=== PATIENT | female | born 1955 | race Caucasian/White ===

== ENCOUNTER 2020-12-18 08:53 | Observation (INO) | payer MEDICARE, SELFPAY ==
[2020-12-18] VITALS (7 sets, daily range): BP systolic 128–188; BP diastolic 58–98; PULSE 73–97; RESP 14–20; TEMP 36.6–36.9; O2SAT 92–100; BMI 36.5; BMI 77.4
--- NOTE | 2020-12-18 09:26 | CT_ITS ---
STUDY: CT LUMBAR SPINE WITHOUT CONTRAST REASON FOR EXAM: Female, 65 years old. Lumbar radiculopathy, fall RADIATION DOSAGE (If Supplied By Facility): CTDIvol = ( 38.52 ) mGy, DLP = ( 1205.95 ) mGycm TECHNIQUE: The patient was scanned in a multi detector CT scanner. High resolution transaxial imaging was performed. Images were obtained from L1 to S1 vertebral level. Sagittal and coronal images were reconstructed. Individualized dose optimization techniques were used for this CT. COMPARISON: None FINDINGS: Normal lumbar lordosis. There is no substantial scoliosis. Normal vertebrae of the lumbar spine. L1-2: Marked degree of disc space narrowing. Anterior spondylosis. Facet joint osteoarthritis. Mild degree of diffuse posterior disc bulge. Bilateral neural foraminal stenosis with mild degree of central canal stenosis due to hypertrophy of the facet joints and ligamenta flava. L2-3: Mild degree of disc space narrowing. Facet joint osteoarthritis and hypertrophy worse on the right side with bilateral neural foraminal stenosis worse on the right side. Right sided central canal stenosis due to the hypertrophy of the facet joint. L3-4: Mild degree of diffuse disc bulge. Facet joint osteoarthritis and hypertrophy with a marked degree of bilateral neural foraminal stenosis. There is also a marked degree of central canal stenosis due to hypertrophy of the facet joints and ligamentum flavum. L4-5: Mild degree of disc space narrowing. Mild anterior listhesis of L4 on L5. Severe bilateral neural foraminal stenosis and central canal stenosis due to hypertrophy of the facet joints and ligamentum flavum. L5-S1: Marked degree of disc space narrowing. Hypertrophy of the facet joints with bilateral neural foraminal stenosis and central canal stenosis. Normal visualized paraspinous soft tissue structures. CT/Spine Lumbar without Contrast IMPRESSION: Multilevel degenerative changes, as described above. Multilevel bilateral neural foraminal and central spinal stenosis. Electronically Signed: Rickey Dumont MD at 11:32 EDT , Service support ,
[2020-12-18] MEDS: morphine 8 MG/ML Syringe IM (09:36)
--- NOTE | 2020-12-18 11:25 | ED.DCSUM_ITS ---
History of Present Illness Chief Complaint: Back Narrative: Patient presenting for evaluation secondary to back pain. Patient reports that around a month ago she suffered a mechanical fall. States that she fell on snow and ice, caught her self, and had an onset of generalized back pain. She reports that she actually had improvement of this back pain. Patient states that following that she started to reintroduce an exercise regimen where she was on treadmill. She reports that after that she had a development of low back pain that now radiates down her bilateral legs. She states that this is bad all of the time, but is specifically worse with ambulation. She denies any numbness or weakness associated with this. No bowel or bladder incontinence. No fevers chills night sweats or unintended weight loss. She has been taking [id number] analgesics for this, but has not had any improvement. Patient was placed on a Medrol pack and is on currently day 5 and has not had any improvement from this. No history of IV drug abuse. View of systems otherwise negative. Past Medical History - Allergies and Home Meds Allergies/Adverse Reactions: Allergies aspirin Allergy (Verified 12/18/20 08:59) Other Sulfa (Sulfonamide Antibiotics) Allergy (Verified 12/18/20 08:59) Other Primary Care Physician: Preet Farrar DO [Primary Care Provider] - Prior records reviewed: Yes Past Medical History: - - No significant past medical history Lives: With Family Smoking Status: Current every day smoker Alcohol: None Drugs: None Review of Systems All systems negative except as indicated - See HPI General: Denies: Chills, Fever, Sweats Eyes: Denies: Visual changes - bilaterally, Diplopia ENT: Denies: Rhinorrhea, Sore throat Cardiovascular: Denies: Chest pain, Palpitations Respiratory: Denies: Dyspnea, Cough, Dyspnea on exertion Gastrointestinal: Denies: Abdominal pain, Nausea, Vomiting, Diarrhea, Melena, Hematochezia Genitourinary: Denies: Dysuria, Hematuria, Frequency Musculoskeletal: Reports: Back pain Skin: Denies: Rash, Wounds Neurological: Denies: Headache, Weakness, Numbness Physical Exam Vital Signs/Narrative: Vital Signs Temp Pulse Resp BP Pulse Ox 12/18/20 08:54 97.8 F 80 16 188/98 H 98 Inital Vital Signs reviewed: Yes General: Well nourished, Well developed, - - Is a bland pain Head: Normocephalic, Atraumatic Eyes: Perrl, EOMI ENT: Moist mucous membranes, No rhinorrhea Neck: Supple, Nontender Cardiovascular: Regular rate, Regular rhythm, No murmurs Respiratory: No distress, CTA bilaterally, Chest nontender Abdomen: Soft, Nontender, Nondistended, Normal bowel sounds. Negative for: Pulsatile mass Back: Normal Inspection, Positive SLR - Right, Positive SLR - Left, - - Patient has both midline lumbar tenderness as well as paraspinal lumbar tenderness no evidence of step-offs Extremeties: Nontender, No edema Skin: Normal color, No rash Neuro: Alert, Oriented, Normal Strength, Normal Sensation, Normal DTR, - - 5-5 strength at the hip knee ankle and foot with normal sensation over all dermatomes. 1+ patellar and Achilles reflexes negative clonus. Psychological: Normal affect Diagnostic/Tx/Re-eval Clinical Impression(s) from Imaging Studies Lumbar Spine CT 12/18/20 09:26 IMPRESSION: Multilevel degenerative changes, as described above. Multilevel bilateral neural foraminal and central spinal stenosis. Electronically Signed: Rickey Dumont MD at 11:32 EDT , Service support , - Medical Decision Making Patient presented for evaluation secondary to back pain. Patient was given IM medications initially. CT imaging shows the patient to have multilevel degenerative changes with foraminal narrowing. Patient has radicular symptoms, but does not have symptoms that are indicative of spinal cord impingement or cauda equina. After multiple doses of IM narcotic pain medication the patient was still unable to ambulate and was only able to get out of bed with 2 nurses assisting her. I believe that she requires admission for further pain control. Patient will be admitted under the hospitalist. ED Disposition - Plan for ED Patient: Disposition: Acute Care Hospital [facility] Diagnosis: Lumbar radiculopathy, Intractable back pain, Ambulatory dysfunction
[2020-12-18] MEDS: HYDROmorphone 0.5 MG/0.5 ML SYRINGE IV (12:24)
--- NOTE | 2020-12-18 13:16 | HP.PCM_ITS ---
History of Present Illness Date of Admission: 12/18/20 Chief Complaint: intractable back pain The patient is a 65 year old F with a PMH as outlined who was admitted via [facility] ED on 12/19/2019 with a complaint of back pain. Patient states she fell about a month ago. She has had back pain since then but it has acutely worsened. It is worsened to the point where she could not even weight-bear. Initially did improve and she was able to start working out on her treadmill. However after that, she started having even worse back pain which is worsened with ambulation. Pain radiates down to both legs. She has been taking [id number] analgesics but this has not been working. She was also prescribed a Medrol Dosepak but this was also not working. She therefore decided to come into the ED. She denies any urinary or fecal incontinence. Review of stems otherwise negative. In the ED, vitals were essentially stable. CT of the lumbar spine showed multilevel degenerative changes with multilevel bilateral neural foraminal and central spinal stenosis. She has been admitted to manage for intractable back pain due to spinal stenosis. [] Past Medical History Allergies aspirin Allergy (Verified 12/18/20 08:59) Other Sulfa (Sulfonamide Antibiotics) Allergy (Verified 12/18/20 08:59) Other Home Medications: Ambulatory Orders Medication Instructions Recorded Acetaminophen [Tylenol Extra 1,000 mg PO Q4H PRN PRN 12/18/20 Strength] Ergocalciferol (Vitamin D2) 50,000 unit PO MOFR 12/18/20 [Vitamin D2] Glimepiride 2 mg PO BIDAC 12/18/20 Metoprolol Succinate 25 mg PO DAILY 12/18/20 Thyroid,Pork [Consumer Loan Officer Thyroid 120] 240 mg PO WEFR 12/18/20 Thyroid,Pork [Consumer Loan Officer Thyroid] 120 tablet PO SUMOTUTHSA 12/18/20 Lives: With Family Smoking Status: Current every day smoker Alcohol: None Drugs: None Review of Systems Constitutional: Denies: Chills, Fever, Weight Change Eyes: Denies: Blurred vision HEENT: Denies: Head Aches, Sinus Congestion, Sinus Drainage Cardiovascular: Denies: Chest Pain, Palpitations Respiratory: Denies: Cough, Shortness of breath at rest, Sputum production Gastrointestinal: Denies: Abdominal Pain, Nausea, Vomiting Genitourinary: Denies: Dysuria Musculoskeletal: Reports: - - back pain. Denies: Joint Pain, Joint Tenderness Skin: Denies: Rash, Wounds Neurological: Denies: Numbness, Tingling, Focal weakness Psychiatric: Denies: Anxiety, Depression, Homicidal Ideations, Suicidal Ideation s Hematologic/ Lymphatic: Denies: Easy Bruising, Easy Bleeding VTE Information - Inpt Only VTE Present on Admission: No VTE Pharm Prophylaxis ordered?: Yes Patient Problems: Active and Suspected Problems Lumbar radiculopathy (Acute) Intractable back pain (Acute) Ambulatory dysfunction (Acute) - Physical Exam Vitals/I&O's: Vital Signs Temp Pulse Resp BP Pulse Ox 97.8 F 77 14 143/66 H 96 12/18/20 08:54 12/18/20 12:00 12/18/20 12:00 12/18/20 12:00 12/18/20 12:00 Oxygen Delivery Method Room Air Weight: 187 lb 2.759 oz Body Mass Index (BMI) 36.5 General: Alert, Oriented x3, Cooperative, No apparent distress HEENT: Atraumatic, PERRLA, EOMI, Normocephalic Oral: Dry Mucosa Neck: Supple, No JVD, Negative Carotid Bruits Lungs: Clear to auscultation, Normal air movement, No rhonchi, No wheeze Cardiovascular: Regular rate, Regular Rhythm, Normal S1, Normal S2, No murmurs Abdomen: Bowel Sounds Present, Soft, Non Tender, Non-Distended, No Hepato- splenomegaly Extremities: No clubbing, No cyanosis, No edema, Capillary Refill Less than 3 Seconds Skin: No rashes, No breakdown Musculoskeletal: - - tenderness on palpation of lower back; paraspinal muscle tightness and tenderness Lymphatic: No Cervical, Supraclavicular, or Inguinal Adenopathy Neurological: Cranial nerves II-XII grossly intact, Neuro grossly intact, Motor Exam 5/5 strength throughout Psych/Mental Status: Normal Affect, Appropriate, Alert and oriented to time, place, person, mood and affect Assessment/Plan All Active Problems Lumbar radiculopathy (Acute) Intractable back pain (Acute) Ambulatory dysfunction (Acute) 65 y/o admitted with a complaint of intractable back pain #Intractable back pain due to spinal stenosis * Admit to [facility]\ * PT OT consult. Fall precautions * Will get MRI of the lumbar spine. * WIll consider spine surgery depending on the results of the MRI lumbar spine * #Hypothyroidism: On Synthroid #2 diabetes mellitus: On glimepiride. Insulin sliding scale. Checks AC at bedtime. #Hypertension: On metoprolol #Nicotine dependence: We will give nicotine patch DVT prophylaxis: Lovenox OBSV E&M: 99407 Initial observation care L3
--- NOTE | 2020-12-18 13:21 | NURSING ---
MED SURG [facility] INTRACTABLE BACK PAIN
[2020-12-18] MEDS: 0.9% Normal Saline 1,000 ML 125 ML IV (17:38)
[2020-12-18] MEDS: Morphine 4 MG/ML Syringe IV ×2 (17:43→22:21)
[2020-12-18 18:16] LABS: Absolute Neutrophil Count 8.1 X10^3/uL (2.0-7.7); Basophil# 0.05 X10^3/uL; Basophil% 0.4 % (0-1); Eosinophil# 0.15 X10^3/uL; Eosinophils% 1.2 % (0-5); Lymphocyte % 25.5 % (19-41); Mean Corp Hgb Conc 33.3 g/dL (32-36); Mean Corpuscular Hgb 30.6 pg (27.0-32.0); Mean Corpuscular Volume 91.8 fL (81-99); Mean Platelet Vol. 9.5 fl (6.2-12.0); Monocyte# 0.98 X10^3/uL; Monocyte% 7.8 % (0-10); NRBC Flagged by Analyzer 0 % (0-5); Neutrophil # 8.09 X10^3/uL (2.7-7.7); Neutrophil % 64.5 % (47-70); Platelet Count 336 K/mm3 (150-450); RBC Distribution Width CV 12.8 % (11.6-14.6); RBC Distribution Width SD 42.5 fl (35.1-43.9); Red Blood Count 5.23 M/mm3 (4.2-5.4); White Blood Count 12.6 K/mm3 (4.4-11.0)
[2020-12-18 18:30] LABS: Anion Gap 6 (5-15); BUN 15 mg/dL (7-18); BUN/Creat Ratio 24.2 RATIO (10-20); Calcium,Total 9.5 mg/dL (8.5-10.1); Chloride 100 mmol/L (98-107); Creatinine, Serum 0.62 mg/dL (0.55-1.02); EST Glomerular Filtration Rate 102 mL/min (>60); Est Glom Filt Rate - Afr Amer 124 mL/min (>60); Estimated Creatinine Clearance 64.98 ml/min; Glucose 194 mg/dL (74-106); Potassium 3.7 mmol/L (3.5-5.1); Sodium Level 135 mmol/L (136-145)
[2020-12-18] MEDS: Acetaminophen 500 MG Tablet 1000 MG PO (20:26)
[2020-12-18] MEDS: oxyCODONE 5 MG Tablet PO (20:26)
[2020-12-18 22:36] LABS: Bedside Glucose 199 mg/dL (70-110)
[2020-12-19] MEDS: 0.9% Normal Saline 1,000 ML 125 ML IV (01:46)
[2020-12-19 02:23] VITALS: BP 157/78; PULSE 75; RESP 17; TEMP 36.9; O2SAT 95
[2020-12-19] MEDS: Morphine 4 MG/ML Syringe IV ×5 (02:25→21:29)
[2020-12-19 05:31] LABS: Absolute Lymphocyte Count 1.94 X10^3/uL (0.83-4.51); Basophil# 0.05 X10^3/uL; Basophil% 0.6 % (0-1); Eosinophil# 0.31 X10^3/uL; Eosinophils% 3.9 % (0-5); Hematocrit 46.2 % (37-47); Hemoglobin 15.1 g/dL (12.0-15.0); Lymphocyte # 1.94 X10^3/ul (4.0); Lymphocyte % 24.3 % (19-41); Mean Corp Hgb Conc 32.7 g/dL (32-36); Mean Corpuscular Hgb 30.6 pg (27.0-32.0); Mean Corpuscular Volume 93.7 fL (81-99); Mean Platelet Vol. 9.5 fl (6.2-12.0); Monocyte# 0.59 X10^3/uL; Monocyte% 7.4 % (0-10); NRBC Flagged by Analyzer 0 % (0-5); Neutrophil # 5.02 X10^3/uL (2.7-7.7); Neutrophil % 62.9 % (47-70); Platelet Count 325 K/mm3 (150-450); RBC Distribution Width CV 12.8 % (11.6-14.6); RBC Distribution Width SD 43.9 fl (35.1-43.9); Red Blood Count 4.93 M/mm3 (4.2-5.4)
[2020-12-19 05:51] LABS: Anion Gap 5 (5-15); BUN 14 mg/dL (7-18); BUN/Creat Ratio 28.7 RATIO (10-20); Calcium,Total 8.7 mg/dL (8.5-10.1); Chloride 102 mmol/L (98-107); Creatinine, Serum 0.49 mg/dL (0.55-1.02); EST Glomerular Filtration Rate 135 mL/min (>60); Est Glom Filt Rate - Afr Amer 164 mL/min (>60); Estimated Creatinine Clearance 82.22 ml/min; Glucose 171 mg/dL (74-106); Potassium 3.8 mmol/L (3.5-5.1); Sodium Level 136 mmol/L (136-145)
[2020-12-19] MEDS: Thyroid 60 MG Tablet 240 MG PO (06:21)
[2020-12-19 06:41] LABS: Bedside Glucose 177 mg/dL (70-110)
[2020-12-19] MEDS: Acetaminophen 500 MG Tablet 1000 MG PO ×2 (07:16→19:55)
[2020-12-19] MEDS: oxyCODONE 5 MG Tablet PO ×2 (07:16→19:55)
[2020-12-19 08:16] VITALS: BP 165/99; PULSE 66; RESP 18; TEMP 36.7; O2SAT 92
[2020-12-19 08:20] VITALS: PULSE 76
[2020-12-19] MEDS: 0.9% Saline Lock 10 ML Syringe IV ×6 (09:26→23:36)
[2020-12-19 09:28] VITALS: PULSE 80
[2020-12-19] MEDS: Metoprolol(XL)Succ 25 MG Tablet PO (09:28)
[2020-12-19] MEDS: Enoxaparin 40 MG/0.4 ML Syringe SC (09:31)
--- NOTE | 2020-12-19 10:51 | PCM.PN.HOSP ---
Patient Problems: Active and Suspected Problems Lumbar radiculopathy (Acute) Intractable back pain (Acute) Ambulatory dysfunction (Acute) Subjective: Patient seen and examined. She still complains of severe back pain with spasms. She doesnt think she will be able to do the lumbar spine MRI due to pain. Review of systems otherwise negative. Vitals/I&O's: Vital Signs Temp Pulse Resp BP Pulse Ox 98.0 F 80 18 165/99 H 92 12/19/20 08:16 12/19/20 09:28 12/19/20 08:16 12/19/20 08:16 12/19/20 08:16 Oxygen Delivery Method Room Air Weight: 396 lb 6.258 oz Body Mass Index (BMI) 77.4 Intake and Output for Last 24 Hours 12/17/20 12/18/20 12/19/20 23:59 23:59 23:59 Intake Total 100 / 100 2612.5 / 2612.5 Output Total 450 / 450 Balance 100 / 100 2162.5 / 2162.5 General: Alert, Oriented x3, Cooperative, No apparent distress HEENT: Atraumatic, PERRLA, EOMI, Normocephalic Oral: Dry Mucosa Neck: Supple, No JVD, Negative Carotid Bruits Lungs: Clear to auscultation, Normal air movement, No rhonchi, No wheeze Cardiovascular: Regular rate, Regular Rhythm, Normal S1, Normal S2, No murmurs Abdomen: Bowel Sounds Present, Soft, Non Tender, Non-Distended, No Hepato-splenomegaly Extremities: No clubbing, No cyanosis, No edema, Capillary Refill Less than 3 Seconds Skin: No rashes, No breakdown Musculoskeletal: - - tenderness on palpation of lower back; paraspinal muscle tightness and tenderness Lymphatic: No Cervical, Supraclavicular, or Inguinal Adenopathy Neurological: Cranial nerves II-XII grossly intact, Neuro grossly intact, Motor Exam 5/5 strength throughout Psych/Mental Status: Normal Affect, Appropriate, Alert and oriented to time, place, person, mood and affect Laboratory Results 12/18/20 17:38: WBC 12.6 H, RBC 5.23, Hgb 16.0 H, Hct 48.0 H, MCV 91.8, MCH 30.6, MCHC 33.3, RDW Std Deviation 42.5, RDW Coeff of Neida 12.8, Plt Count 336, MPV 9.5, Immature Gran % (Auto) 0.600, Neut % (Auto) 64.5, Lymph % (Auto) 25.5, [place] % (Auto) 7.8, Eos % (Auto) 1.2, Baso % (Auto) 0.4, Absolute Neuts (auto) 8.1 H, Absolute Lymphs (auto) 3.20, Nucleated RBC % 0 12/18/20 17:38: Sodium 135 L, Potassium 3.7, Chloride 100, Carbon Dioxide 29.0, Anion Gap 6, BUN 15, Creatinine 0.62, Estim Creat Clear Calc 64.98, Est GFR (MDRD) Af Amer 124, Est GFR (MDRD) Non-Af 102, BUN/Creatinine Ratio 24.2 H, Glucose 194 H, Calcium 9.5 12/18/20 22:25: POC Glucose 199 H 12/19/20 05:06: WBC 8.0, RBC 4.93, Hgb 15.1 H, Hct 46.2, MCV 93.7, MCH 30.6, MCHC 32.7, RDW Std Deviation 43.9, RDW Coeff of [place]ida 12.8, Plt Count 325, MPV 9.5, Immature Gran % (Auto) 0.900, Neut % (Auto) 62.9, Lymph % (Auto) 24.3, [place] % (Auto) 7.4, Eos % (Auto) 3.9, Baso % (Auto) 0.6, Absolute Neuts (auto) 5.0, Absolute Lymphs (auto) 1.94, Nucleated RBC % 0 12/19/20 05:06: Sodium 136, Potassium 3.8, Chloride 102, Carbon Dioxide 29.0, Anion Gap 5, BUN 14, Creatinine 0.49 L, Estim Creat Clear Calc 82.22, Est GFR (MDRD) Af Amer 164, Est GFR (MDRD) Non-Af 135, BUN/Creatinine Ratio 28.7 H, Glucose 171 H, Calcium 8.7 12/19/20 06:11: POC Glucose 177 H Current Medications Acetaminophen (Acetaminophen 500 Mg Tablet) 1,000 mg PO Q4H PRN PRN PRN Reason: Pain 1-10 or Fever Last Admin: 12/19/20 07:16 Dose: 1,000 mg Documented by: Dextrose (Dextrose 50%-Water 25 Gm/50 Ml Disp.Syrin) 0 gm IV X1 PRN; Protocol PRN Reason: Hypoglycemia Enoxaparin Sodium (Enoxaparin 40 Mg/0.4 Ml Syringe) 40 mg SC DAILY [facility] Last Admin: 12/19/20 09:31 Dose: 40 mg Documented by: Ergocalciferol (Ergocalciferol 50,000 Unit Capsule) 50,000 unit PO MOFR [facility] Glimepiride (Glimepiride 2 Mg Tablet) 2 mg PO DAILY@1700 SUSANA Glucagon (Glucagon 1 Mg/Ml Syringe) 1 mg IM .X1 PRN PRN Reason: Hypoglycemia Insulin Human Lispro (Insulin Lispro 100 Unit/Ml Insuln.Pen) 0 unit SC ACHS [facility]; Protocol Last Admin: 12/19/20 06:18 Dose: Not Given Documented by: Metoprolol Succinate (Metoprolol(Xl)Succ 25 Mg Tablet) 25 mg PO DAILY [facility] Last Admin: 12/19/20 09:28 Dose: 25 mg Documented by: Morphine Sulfate (Morphine 4 Mg/Ml Syringe) 4 mg IV Q3H PRN PRN PRN Reason: Pain Score 6-10 Last Admin: 12/19/20 06:07 Dose: 4 mg Documented by: Ondansetron HCl (Ondansetron 4 Mg/2 Ml Vial) 4 mg IV Q8H PRN PRN PRN Reason: NAUSEA/VOMITING Oxycodone HCl (Oxycodone 5 Mg Tablet) 5 mg PO Q4H PRN PRN PRN Reason: Pain Score 4-5 Last Admin: 12/19/20 07:16 Dose: 5 mg Documented by: Sodium Chloride (0.9% Saline Lock 10 Ml Syringe) 10 - 40 ml IV UD PRN PRN Reason: SALINE FLUSH Last Admin: 12/19/20 09:26 Dose: 10 ml Documented by: Thyroid (Thyroid 60 Mg Tablet) 120 mg PO SUMOTUTHSA [facility] Thyroid (Thyroid 60 Mg Tablet) 240 mg PO WEFR [facility] Last Admin: 12/19/20 06:21 Dose: 240 mg Documented by: STROKE Vital Signs/Narrative: Vital Signs Temp Pulse Resp BP Pulse Ox 12/19/20 09:28 80 12/19/20 08:20 76 12/19/20 08:16 98.0 F 66 18 165/99 H 92 Medical Necessity - Tobacco Use Smoking Status: Current every day smoker Tobacco Use: Cigarettes Assessment/Plan All Active Problems Lumbar radiculopathy (Acute) Intractable back pain (Acute) Ambulatory dysfunction (Acute) 65 y/o admitted with a complaint of intractable back pain #Intractable back pain due to spinal stenosis still complains of severe back pain on tylenol, oxycodone and morphine for pain will add on flexeril for muscle spasms patient doesnt think she can do MRI of the lumbar spine due to severe pain. consult spine surgery PT/OT on board fall precautions. #Hypothyroidism: On Synthroid #Type 2 diabetes mellitus: On glimepiride. Insulin sliding scale. Checks AC at bedtime. #Hypertension: On metoprolol #Nicotine dependence: We will give nicotine patch DVT prophylaxis: Lovenox OBSV E&M: 71672 Subsequent observation care L2
[2020-12-19] MEDS: Ondansetron 4 MG/2 ML Vial IV (11:03)
[2020-12-19 11:20] LABS: Bedside Glucose 221 mg/dL (70-110)
[2020-12-19] MEDS: cycloBENZAPRine HCl 10 MG Tablet PO ×3 (12:15→21:32)
[2020-12-19] MEDS: dexAMETHasone 4 MG/ML Vial 8 MG IV (12:17)
--- NOTE | 2020-12-19 12:59 | CASEMGMT ---
OLVIN CHONG in to discuss SOTOMAYOR form with pt. RN CM explained SOTOMAYOR form, pt voiced understanding. Pt signed form and filed in chart. Pt provided with copy of signed form. Pt had no further questions or concerns at this time.
[2020-12-19 14:11] VITALS: BP 142/66; PULSE 64; RESP 16; TEMP 36.8; O2SAT 93
[2020-12-19 16:55] LABS: Bedside Glucose 316 mg/dL (70-110)
[2020-12-19] MEDS: Glimepiride 2 MG Tablet PO (17:32)
[2020-12-19] MEDS: dexAMETHasone 4 MG/ML Vial 6 MG IV (17:33)
[2020-12-19] MEDS: Insulin Lispro 100 UNIT/ML INSULN.PEN SC (21:42)
[2020-12-19 21:45] VITALS: BP 176/78; PULSE 66; RESP 18; TEMP 37; O2SAT 100
[2020-12-19 22:15] LABS: Bedside Glucose 322 mg/dL (70-110)
[2020-12-19] MEDS: dexAMETHasone 4 MG/ML Vial IV (23:37)
[2020-12-20] VITALS (9 sets, daily range): BP systolic 115–194; BP diastolic 42–95; PULSE 61–83; RESP 10–18; TEMP 36.5–37.1; O2SAT 89–97
[2020-12-20] MEDS: Acetaminophen 500 MG Tablet 1000 MG PO ×2 (04:19→08:24)
[2020-12-20] MEDS: oxyCODONE 5 MG Tablet PO ×2 (04:20→08:23)
[2020-12-20] MEDS: cycloBENZAPRine HCl 10 MG Tablet PO ×3 (05:35→21:09)
--- NOTE | 2020-12-20 05:55 | MRI_ITS ---
We are attempting to reach an attending provider to discuss findings. An addendum with communication details will be sent when the communication is complete. STUDY: MRI LUMBAR SPINE WITHOUT CONTRAST REASON FOR EXAM: Female, 65 years old. back pain TECHNIQUE: Standardized fat and water weighted pulse sequences were obtained in the sagittal and axial planes. COMPARISON: CT 12/18/2020 FINDINGS: T12-L1: Mild bilobed disc protrusion produces mild spinal stenosis but no neural foraminal stenosis. Normal lumbar lordosis. Mild levoscoliosis centered at L2. Normal conus medullaris that terminates at the L1. L1-2: Mild bilateral facet hypertrophy and ligament flavum hypertrophy. Mild broad disc protrusion with a superimposed large central disc extrusion produces severe spinal stenosis with effacement of multiple nerve roots and no neural foraminal stenosis. L2-3: Normal endplates. Normal disc height, hydration and morphology. Normal bilateral facet joints. Normal central canal and bilateral lateral recesses. Normal bilateral intervertebral neural foramina. L3-4: Mild bilateral facet hypertrophy and moderate ligament flavum hypertrophy. Mild bilobed disc protrusion produces moderate spinal stenosis with moderate bilateral lateral recess stenosis with abutment of the L4 nerve roots bilaterally and mild bilateral neural foraminal stenosis. L4-5: Moderate bilateral facet hypertrophy and ligament flavum hypertrophy. Moderate broad disc protrusion produces moderate spinal stenosis with moderate bilateral lateral recess stenosis with abutment of the L5 nerve roots bilaterally and moderate bilateral neural foraminal stenosis with abutment of the exiting L4 nerve roots bilaterally to L5-S1: Moderate bilateral facet hypertrophy and ligament flavum hypertrophy. Mild broad disc protrusion produces mild spinal stenosis and mild bilateral neural foraminal stenosis. Normal visualized sacral ala. Normal visualized paraspinous soft tissue structures. MRI/Spine Lumbar (Routine) IMPRESSION: Multilevel degenerative changes, as described above. Large central disc extrusion at L1/L2 produces severe spinal stenosis with effacement of virtually all of the lumbar spine nerve roots. Electronically Signed: Hung Das MD at 16:02 EDT Tel , Service support ,
[2020-12-20 06:07] LABS: Absolute Lymphocyte Count 0.98 X10^3/uL (0.83-4.51); Absolute Neutrophil Count 10.2 X10^3/uL (2.0-7.7); Basophil# 0.01 X10^3/uL; Basophil% 0.1 % (0-1); Hematocrit 45.4 % (37-47); Hemoglobin 15.9 g/dL (12.0-15.0); Lymphocyte # 0.98 X10^3/ul (4.0); Lymphocyte % 8.5 % (19-41); Mean Corpuscular Hgb 31.3 pg (27.0-32.0); Mean Corpuscular Volume 89.4 fL (81-99); Mean Platelet Vol. 9.3 fl (6.2-12.0); Monocyte# 0.18 X10^3/uL; Monocyte% 1.6 % (0-10); NRBC Flagged by Analyzer 0 % (0-5); Neutrophil # 10.23 X10^3/uL (2.7-7.7); Neutrophil % 89.2 % (47-70); Platelet Count 288 K/mm3 (150-450); RBC Distribution Width CV 12.6 % (11.6-14.6); RBC Distribution Width SD 40.7 fl (35.1-43.9); Red Blood Count 5.08 M/mm3 (4.2-5.4); White Blood Count 11.5 K/mm3 (4.4-11.0)
[2020-12-20] MEDS: 0.9% Saline Lock 10 ML Syringe IV ×4 (06:24→23:34)
[2020-12-20] MEDS: Morphine 4 MG/ML Syringe IV (06:24)
[2020-12-20] MEDS: dexAMETHasone 4 MG/ML Vial 2 MG IV (06:24)
[2020-12-20] MEDS: hydrALAZINE 20 MG/ML Vial 10 MG IV (06:29)
[2020-12-20] MEDS: Thyroid 60 MG Tablet 120 MG PO ×2 (06:35→17:05)
[2020-12-20] MEDS: Insulin Lispro 100 UNIT/ML INSULN.PEN SC ×4 (06:35→21:12)
[2020-12-20 06:37] LABS: Anion Gap 3 (5-15); BUN 13 mg/dL (7-18); BUN/Creat Ratio 22.7 RATIO (10-20); Calcium,Total 9.6 mg/dL (8.5-10.1); Chloride 99 mmol/L (98-107); Creatinine, Serum 0.57 mg/dL (0.55-1.02); EST Glomerular Filtration Rate 113 mL/min (>60); Est Glom Filt Rate - Afr Amer 136 mL/min (>60); Estimated Creatinine Clearance 70.68 ml/min; Glucose 269 mg/dL (74-106); Potassium 3.9 mmol/L (3.5-5.1); Sodium Level 130 mmol/L (136-145)
[2020-12-20 07:26] LABS: Bedside Glucose 235 mg/dL (70-110)
[2020-12-20] MEDS: Enoxaparin 40 MG/0.4 ML Syringe SC (11:41)
[2020-12-20] MEDS: Metoprolol(XL)Succ 25 MG Tablet PO (11:41)
[2020-12-20 12:50] LABS: Bedside Glucose 308 mg/dL (70-110)
--- NOTE | 2020-12-20 13:59 | PCM.PN.HOSP ---
Patient Problems: Active and Suspected Problems Lumbar radiculopathy (Acute) Intractable back pain (Acute) Ambulatory dysfunction (Acute) Subjective: Patient seen and examined this morning. Patient was very angry this morning because she she said she was in a lot of pain and didnt think anything was being done about it. She didnt think she would be able to lay flat for the MRI. She complained of weakness in her lower extremities. Patient was very angry and used several swear words towards staff and physician, because she felt nobody was listening to her. She wanted to be put under general anesthesia for the MRI. I explained to her that we couldnt do that, as we would need to have an anesthesiologist present and a ventilator available if she was going to be fully anesthetised for the MRI. Patient demanded that we find out from anesthesia why we could not get an anesthesiologist for an hour and a half to come to the MRI suit and bring a ventilator to fully sedate her for the MRI. Again, I did my best to explain to the patient that this was simply not possible as in a facility, we could not fully anesthetize the patient for MRI. Patient again asked why we do not have a standing MRI like [facility]. I offered to transfer patient to a nice outside facility where she could have the resources available so that she could be fully anesthetized for MRI. Patient refused transfer and says she did not want to go to any other hospital. I offered to give patient either Dilaudid or fentanyl which was stronger than morphine to help with pain during the procedure. Patient refused to have Dilaudid and also refused fentanyl because she says she had read about how bad things could happen to patient's who took fentanyl. I explained to patient that spine surgeon has stressed the importance of the MRI in quantifying the degree of stenosis to help him best plan any intervention if needed. Patient yelled that this was about what I want, and what I need, not what the medical staff wanted or needed or prescribed for her. Patient kept complaining that nobody was listening to her but even as I tried to reassure her and explained the plan of care, patient kept interrupting and talking all over me and would not listen. I explained to patient that if she was not willing to listen to the medical team, it would be very difficult to come up with a plan of care that she would agree to. I explained that I did empathize with her and felt compassion for the pain that she was in, and was here to help her. Patient finally agreed to attempt to have the MRI, only if I would give her a higher dose of her morphine, and also ativan. I agreed to this. I was subsequently informed by her nurse that she said she preferred dilaudid instead of morphine. Patient to be given IV dilaudid 2mg x 1 and IV ativan 1 mg x1 just prior to MRI. Vitals/I&O's: Vital Signs Temp Pulse Resp BP Pulse Ox 98.2 F 77 18 155/71 H 95 12/20/20 08:06 12/20/20 11:41 12/20/20 08:06 12/20/20 11:41 12/20/20 08:06 Oxygen Delivery Method Room Air Weight: 396 lb 6.258 oz Body Mass Index (BMI) 77.4 Intake and Output for Last 24 Hours 12/18/20 12/19/20 12/20/20 23:59 23:59 23:59 Intake Total 100 / 100 3152.5 / 3652.5 850 / 850 Output Total 1750 / 2400 1050 / 1050 Balance 100 / 100 1402.5 / 1252.5 -200 / -200 General: Alert, Non-Cooperative, - - very angry HEENT: Atraumatic, PERRLA, EOMI, Normocephalic Oral: Dry Mucosa Neck: Supple, No JVD, Negative Carotid Bruits Lungs: Clear to auscultation, Normal air movement, No rhonchi, No wheeze Cardiovascular: Regular rate, Regular Rhythm, Normal S1, Normal S2, No murmurs Abdomen: Bowel Sounds Present, Soft, Non Tender Extremities: No clubbing, No cyanosis, No edema, Capillary Refill Less than 3 Seconds Skin: No rashes, No breakdown Musculoskeletal: - - tenderness on palpation of lower back, with spasms Lymphatic: No Cervical, Supraclavicular, or Inguinal Adenopathy Neurological: Cranial nerves II-XII grossly intact, Motor Exam 5/5 strength throughout Psych/Mental Status: Normal Affect, Appropriate, Alert and oriented to time, place, person, mood and affect Laboratory Results 12/19/20 16:42: POC Glucose 316 H 12/19/20 21:36: POC Glucose 322 H 12/20/20 05:50: WBC 11.5 H, RBC 5.08, Hgb 15.9 H, Hct 45.4, MCV 89.4, MCH 31.3, MCHC 35.0 D, RDW Std Deviation 40.7, RDW Coeff of Neida 12.6, Plt Count 288, MPV 9.3, Immature Gran % (Auto) 0.600, Neut % (Auto) 89.2 H, Lymph % (Auto) 8.5 L, [place] % (Auto) 1.6, Eos % (Auto) 0.0, Baso % (Auto) 0.1, Absolute Neuts (auto) 10.2 H, Absolute Lymphs (auto) 0.98, Nucleated RBC % 0 12/20/20 05:50: Sodium 130 L, Potassium 3.9, Chloride 99, Carbon Dioxide 28.0, Anion Gap 3 L, BUN 13, Creatinine 0.57, Estim Creat Clear Calc 70.68, Est GFR (MDRD) Af Amer 136, Est GFR (MDRD) Non-Af 113, BUN/Creatinine Ratio 22.7 H, Glucose 269 H, Calcium 9.6 12/20/20 06:34: POC Glucose 235 H 12/20/20 12:05: POC Glucose 308 H Diagnostic Data Lumbar Spine CT 12/18/20 09:26 IMPRESSION: Multilevel degenerative changes, as described above. Multilevel bilateral neural foraminal and central spinal stenosis. Electronically Signed: Rickey Dumont MD at 11:32 EDT , Service support , Current Medications Acetaminophen (Acetaminophen 500 Mg Tablet) 1,000 mg PO Q4H PRN PRN PRN Reason: Pain 1-10 or Fever Last Admin: 12/20/20 08:24 Dose: 1,000 mg Documented by: Cyclobenzaprine HCl (Cyclobenzaprine Hcl 10 Mg Tablet) 10 mg PO TID [facility] Last Admin: 12/20/20 13:54 Dose: 10 mg Documented by: Dextrose (Dextrose 50%-Water 25 Gm/50 Ml Disp.Syrin) 0 gm IV X1 PRN; Protocol PRN Reason: Hypoglycemia Enoxaparin Sodium (Enoxaparin 40 Mg/0.4 Ml Syringe) 40 mg SC DAILY [facility] Last Admin: 12/20/20 11:41 Dose: 40 mg Documented by: Ergocalciferol (Ergocalciferol 50,000 Unit Capsule) 50,000 unit PO [facility] Glimepiride (Glimepiride 2 Mg Tablet) 2 mg PO DAILY@1700 [facility] Last Admin: 12/19/20 17:32 Dose: 2 mg Documented by: Glucagon (Glucagon 1 Mg/Ml Syringe) 1 mg IM .X1 PRN PRN Reason: Hypoglycemia Hydralazine HCl (Hydralazine 20 Mg/Ml Vial) 10 mg IV Q4H PRN PRN PRN Reason: SBP > 160 Last Admin: 12/20/20 06:29 Dose: 10 mg Documented by: Hydromorphone HCl (Hydromorphone 1 Mg/Ml Syringe) 2 mg IV X1 [facility] Stop: 12/20/20 18:00 Insulin Human Lispro (Insulin Lispro 100 Unit/Ml Insuln.Pen) 0 unit SC [facility]; Protocol Last Admin: 12/20/20 12:42 Dose: 6 unit Documented by: Lorazepam (Lorazepam 2 Mg/Ml Syringe) 1 mg IV X1 [facility] Stop: 12/20/20 18:00 Metoprolol Succinate (Metoprolol(Xl)Succ 25 Mg Tablet) 25 mg PO DAILY [facility] Last Admin: 12/20/20 11:41 Dose: 25 mg Documented by: Morphine Sulfate (Morphine 4 Mg/Ml Syringe) 4 mg IV Q3H PRN PRN PRN Reason: Pain Score 6-10 Last Admin: 12/20/20 06:24 Dose: 4 mg Documented by: Nicotine (Nicotine 21 Mg Patch) 21 mg TD DAILY [facility] Last Admin: 12/20/20 11:41 Dose: 21 mg Documented by: Ondansetron HCl (Ondansetron 4 Mg/2 Ml Vial) 4 mg IV Q8H PRN PRN PRN Reason: NAUSEA/VOMITING Last Admin: 12/19/20 11:03 Dose: 4 mg Documented by: Oxycodone HCl (Oxycodone 5 Mg Tablet) 5 mg PO Q4H PRN PRN PRN Reason: Pain Score 4-5 Last Admin: 12/20/20 08:23 Dose: 5 mg Documented by: Sodium Chloride (0.9% Saline Lock 10 Ml Syringe) 10 - 40 ml IV UD PRN PRN Reason: SALINE FLUSH Last Admin: 12/20/20 06:24 Dose: 10 ml Documented by: Thyroid (Thyroid 60 Mg Tablet) 120 mg PO DAILY@0700 [facility] Thyroid (Thyroid 60 Mg Tablet) 120 mg PO WeSa@0700 [facility] STROKE Vital Signs/Narrative: Vital Signs Pulse BP 12/20/20 11:41 77 155/71 H Medical Necessity - Tobacco Use Smoking Status: Current every day smoker Tobacco Use: Cigarettes Assessment/Plan All Active Problems Lumbar radiculopathy (Acute) Intractable back pain (Acute) Ambulatory dysfunction (Acute) 65 y/o admitted with a complaint of intractable back pain #Intractable back pain due to spinal stenosis patient very angry and complaining of severe back pain with muscle spasms She received IV Decadron yesterday she says it didnt help with her pain. on tylenol, oxycodone and morphine. Also on flexeril to try getting MRI lumbar spine today Dr Moreland on board; per discussion today, she is unable to do MRI, will get CT of the lumbar spine with myelogram. PT/OT on board fall precautions. #Hypothyroidism: On Synthroid #Type 2 diabetes mellitus: On glimepiride. Insulin sliding scale. Checks AC at bedtime. #Hypertension: On metoprolol #Nicotine dependence: We will give nicotine patch DVT prophylaxis: Lovenox MRI of the lumbar spine showed a large disc herniation at L1/L2 with compression on all the nerve roots. Dr Moreland evaluated the patient and per his recommendation, patient needs to be transferred to a tertiary center with neurosurgery and cardiothoracic surgery, as it would be difficult to do the surgery through a posterior approach, and she would need CT surgery to take down the diaphragm for the L1/L2 approach. Patient agreeable to transfer, and she was accepted at [facility], to the hospitalist service, for consult to orthopedic surgery. OBSV E&M: 16730 Subsequent observation care L3
[2020-12-20] MEDS: LORazepam 2 MG/ML Syringe 1 MG IV (14:27)
[2020-12-20] MEDS: HYDROmorphone 1 MG/ML Syringe 2 MG IV (14:28)
--- NOTE | 2020-12-20 14:56 | NURSING ---
WEIGHT CORRECTION UPON ARRIVAL TO MRI. KG TO LBS ERROR. THIS RN DID NOT WEIGH PATIENT, WILL NEED VERIFIED. OLVIN MCCLURE AWARE.
--- NOTE | 2020-12-20 15:00 | NURSING ---
O2 APPLIED FOR LOW SAT.
--- NOTE | 2020-12-20 15:20 | NURSING ---
PT TOLERATED WELL. REPORT CALLED TO OLVIN MCCLURE; AWARE PT NEEDS AN UPDATED WEIGHT.
[2020-12-20] MEDS: Glimepiride 2 MG Tablet PO (17:06)
[2020-12-20 17:21] LABS: Bedside Glucose 270 mg/dL (70-110)
[2020-12-20] MEDS: dexAMETHasone 4 MG/ML Vial IV ×2 (17:32→23:34)
--- NOTE | 2020-12-20 18:11 | CON.PCM_ITS ---
- Consult Date of Consult: 12/20/20 - Reason for Consult This patient is being seen at the request of Dr. Dallas and with the patient's permission. Her chief complaint is that of intractable low back pain and weakness in her lower extremities. Episode started on November 07. Almost fell on the ice but did not was able to catch herself. Next day she had excruciating low back pain. Some walking and low back exercises that did make the pain just a little bit better. Exacerbated dramatically Thursday 5 days ago. Apparently she did not tell her family she states that she literally could not get out of bed by herself. She finally ended up in the emergency room on Thursday. T scan was done and she was admitted. She states that she has never had pain like this before. At this point she cannot ambulate. On examination it is noted that she has bilateral and complete foot drop. She has no peroneal strength whatsoever on each side. She has marked weakness of her hip flexors on the right more so than the left but it is quite severe. Oddly enough she has reasonable quad strength bilaterally. Her patellar reflexes are Achilles reflexes and posterior tibialis reflexes are all absent. He does not have any long tract signs. Clonus is absent Babinski's are downgoing. I reviewed the MRI scan that was done this afternoon. He has a very large herniation at L1/2. It is central and a little bit to the right. It is pushing on the conus of the spinal cord. I explained to Tia that this is a very unusual herniation only happens about 1 in 500 herniations of the lumbar spine. Reviewing the CT scan does not really show it is it is impossible to see it on the CT even though it was there. Hence I ordered the MRI scan. Planed to Tia that this decompression cannot be done from the back. That is right at the conus even through the conus and the cauda equina for her so that she would un derstand. Cardiothoracic surgeon needs to do a lateral approach L1-2. This requires taken down the diaphragm and approaching the disc from the side. Do not have a cardiothoracic surgeon here so we will have to transfer her to a facility that has both neurosurgery and cardiothoracic capabilities. I discussed this with . She is currently working on a transfer probably to [place]. Her conus needs to be decompressed as soon it is reasonably possible. I answered all of her questions and those of her friend who is with her. The end of consultation on Tia Blanco.
--- NOTE | 2020-12-20 20:47 | NURSING ---
Report given to OLVIN Raniey at [facility] at this time
[2020-12-20 21:55] LABS: Bedside Glucose 327 mg/dL (70-110)
[2020-12-21] MEDS: Morphine 4 MG/ML Syringe IV (01:10)
--- NOTE | 2020-12-21 01:27 | NURSING ---
Pt left the hospital for [facility] at 0125hrs via physician's ambulance. Receiving facility notified. Gave pt morphine as per MAR prior to transport to control pain for the transfer. No concerns voiced by patient.
--- NOTE | 2020-12-21 08:02 | DS.PCM_ITS ---
Discharge Date and Diagnosis - Problem List Patient Problems: Active and Suspected Problems Lumbar radiculopathy (Acute) Intractable back pain (Acute) Ambulatory dysfunction (Acute) Date of Admission: 12/18/20 Date of Discharge: 12/21/20 - Primary Discharge Diagnosis Acute Problems: Active Problems Lumbar radiculopathy (Acute) Intractable back pain (Acute) Ambulatory dysfunction (Acute) spinal stenosis L1/L2 disc protrusion Hospital Course and Treatment Imaging Results: Diagnostic Data Lumbar Spine CT 12/18/20 09:26 IMPRESSION: Multilevel degenerative changes, as described above. Multilevel bilateral neural foraminal and central spinal stenosis. Electronically Signed: Rickey Dumont MD at 11:32 EDT , Service support , Lumbar Spine MRI 12/20/20 05:55 IMPRESSION: Multilevel degenerative changes, as described above. Large central disc extrusion at L1/L2 produces severe spinal stenosis with effacement of virtually all of the lumbar spine nerve roots. Electronically Signed: Hung Das MD at 16:02 EDT Tel , Service support , ADDENDUM: 12/20/20 1623 IMPRESSION: Multilevel degenerative changes, as described above. Large central disc extrusion at L1/L2 produces severe spinal stenosis with effacement of virtually all of the lumbar spine nerve roots. N.B. : The above information has been verbally conveyed by Hung Das MD to Dr. Burt MD , MD, on 12/20/2020 16:16:59 (ET). Electronically Signed: Hung Das MD at 16:02 EDT Tel , Service support , spine surgery- Dr Haris Moreland Operations: None Procedures: None Summary of Care Provided: The patient is a 65 year old F with a PMH as outlined who was admitted via [facility] ED on 12/19/2019 with a complaint of back pain. Patient states she fell about a month ago. She has had back pain since then but it has acutely worsened. It is worsened to the point where she could not even weight-bear. Initially did improve and she was able to start working out on her treadmill. However after that, she started having even worse back pain which is worsened with ambulation. Pain radiates down to both legs. She has been taking [id number] analgesics but this has not been working. She was also prescribed a Medrol Dosepak but this was also not working. She therefore decided to come into the ED. She denies any urinary or fecal incontinence. Review of stems otherwise negative. In the ED, vitals were essentially stable. CT of the lumbar spine showed multilevel degenerative changes with multilevel bilateral neural foraminal and central spinal stenosis. She was admitted to managed for intractable back pain due to spinal stenosis. She was started on IV morphine, oxycodone and Tylenol for pain. Spine surgery was consulted. MRI was ordered of the lumbar spine done showed a large disc herniation at L1/L2 with a large disc herniation and compression of all nerve roots. When surgery evaluated patient and determined the patient needed to be transferred to a tertiary facility because she might need cardiothoracic surgery involved in doing the surgery to pull down the diaphragm in order to access the L1-L2 disc protrusion. Patient was therefore transferred to [facility] on 12/20/2020. Patient seen and examined prior to discharge. She had no complaints. Review of signs otherwise negative. Labs and vitals reviewed. Home medication reviewed and reconciled. O/E: Vital Signs Temp Pulse Resp BP Pulse Ox 98.7 F 71 18 118/95 H 95 12/20/20 20:17 12/20/20 20:17 12/20/20 20:17 12/20/20 20:17 12/20/20 20:17 General: Alert, cooperative HEENT: Atraumatic, PERRLA, EOMI, Normocephalic Oral: Dry Mucosa Neck: Supple, No JVD, Negative Carotid Bruits Lungs: Clear to auscultation, Normal air movement, No rhonchi, No wheeze Cardiovascular: Regular rate, Regular Rhythm, Normal S1, Normal S2, No murmurs Abdomen: Bowel Sounds Present, Soft, Non Tender Extremities: No clubbing, No cyanosis, No edema, Capillary Refill Less than 3 Seconds Skin: No rashes, No breakdown Musculoskeletal: - - tenderness on palpation of lower back, with spasms Lymphatic: No Cervical, Supraclavicular, or Inguinal Adenopathy Neurological: Cranial nerves II-XII grossly intact, Motor Exam 5/5 strength throughout Psych/Mental Status: Normal Affect, Appropriate, Alert and oriented to time, place, person, mood and affect Plan is for transfer to [facility]. Patient Problems: Active and Suspected Problems Lumbar radiculopathy (Acute) Intractable back pain (Acute) Ambulatory dysfunction (Acute) - Physical Exam Vitals/I&O's: Vital Signs Temp Pulse Resp BP Pulse Ox 98.7 F 71 18 118/95 H 95 12/20/20 20:17 12/20/20 20:17 12/20/20 20:17 12/20/20 20:17 12/20/20 20:17 Oxygen Flow Rate (L/min) 3 Oxygen Delivery Method Room Air Weight: 179 lb Body Mass Index (BMI) 77.4 Intake and Output for Last 24 Hours 12/19/20 12/20/20 12/21/20 23:59 23:59 23:59 Intake Total 3152.5 / 3652.5 1600 / 1600 Output Total 1750 / 2400 2550 / 2550 400 / 400 Balance 1402.5 / 1252.5 -950 / -950 -400 / -400 Laboratory Results 12/20/20 12:05: POC Glucose 308 H 12/20/20 17:11: POC Glucose 270 H 12/20/20 21:11: POC Glucose 327 H Home Medications: Medications to take at Discharge Acetaminophen [Tylenol Extra Strength] 1,000 mg PO Q4H PRN PRN 12/18/20 Ergocalciferol (Vitamin D2) [Vitamin D2] 50,000 unit PO MOFR 12/18/20 Glimepiride 2 mg PO DINNER 12/18/20 Metoprolol Succinate 25 mg PO DAILY 12/18/20 Thyroid,Pork [Plastic Maker Thyroid 120] 240 mg PO WESA 12/18/20 Thyroid,Pork [Plastic Maker Thyroid] 120 tablet PO DAILY 12/18/20 Primary Care Physician: Preet Farrar DO [Primary Care Provider] - Disposition: Acute care Hospital Minutes spent on discharge:: 50 Patient Condition:: Fair Medical Necessity - Tobacco Use Smoking Status: Current every day smoker Tobacco Use: Cigarettes Meaningful Use Info Meaningful Use Diagnoses (Choose all that apply): None applicable Inpatient E&M: 29939 Disch Hosp
== END 2020-12-21 01:25 | disposition short-term general hospital (02) ==
LOC: ED 12:55 → MS3 13:53
PROVIDERS: Admitting Provider Student in an Organized Health Care Education/Training Program; Emergency Provider Emergency Medicine; PCP Student in an Organized Health Care Education/Training Program; Visit Provider Student in an Organized Health Care Education/Training Program
DX: M51.16 Intervertebral disc disorders with radiculopathy, lumbar region (principal); R26.9 Unspecified abnormalities of gait and mobility; M48.061 Spinal stenosis, lumbar region without neurogenic claudication; F17.210 Nicotine dependence, cigarettes, uncomplicated; Z91.81 History of falling; Z79.899 Other long term (current) drug therapy; Z79.84 Long term (current) use of oral hypoglycemic drugs; E11.9 Type 2 diabetes mellitus without complications; I10 Essential (primary) hypertension; E03.9 Hypothyroidism, unspecified; M21.372 Foot drop, left foot; M21.371 Foot drop, right foot
CPT/HCPCS: 36415; 72131; 72148; 80048; 82962; 85025; 96361; 96372; 96374; 96375; 96376; 97110; 97162; 97166; 97530; 97535; 99218; 99285; 99406; J7030; A4216; G0378; J2405

== ENCOUNTER 2020-12-28 16:43 | Inpatient (IN) | payer MEDICARE, SELFPAY ==
[2020-12-18 16:00] VITALS: BMI 77.4
[2020-12-28 17:02] VITALS: BP 120/49; PULSE 88; RESP 18; TEMP 36.6; O2SAT 96; BMI 35.2
[2020-12-28] MEDS: cycloBENZAPRine HCl 10 MG Tablet PO ×2 (18:06→23:51)
--- NOTE | 2020-12-28 18:08 | NURSING ---
Received order for Oxycodon 10mg q4hr PRN for pain 6-10, per Dr. Arias, order repeated back.
[2020-12-28] MEDS: oxyCODONE 5 MG Tablet 10 MG PO ×2 (19:41→23:51)
--- NOTE | 2020-12-28 19:55 | PCM.HP.STD ---
Problem List (1) Debility Status: Acute (2) Lumbar disc herniation with radiculopathy Status: Acute (3) Lumbar spinal stenosis Status: Acute (4) Diabetes mellitus Status: Chronic (5) Vitamin D deficiency Status: Chronic (6) Hypertension Status: Chronic (7) Hypothyroidism Status: Chronic (8) Tobacco abuse Status: Chronic (9) Muscle spasm Status: Acute (10) Neuropathic pain Status: Acute (11) Ulcerative colitis Status: Acute (12) Celiac disease Status: Chronic (13) Irritable bowel syndrome Status: Chronic (14) Cannabis abuse Status: Chronic (15) Intractable back pain Status: Acute History of Present Illness Date of Admission: 12/28/20 Chief Complaint: Here for rehabilitation, strengthening, prior to discharge home with family. 12/21/2020 The patient is a 65 year old Female with below past medical history transferred from [facility] to [facility] for severe lumbar spinal stenosis requiring CT surgery to assist with surgery. 12/21/2020 Orthopedics spine performed L1-L2 posterior spinal disc fusion with discectomy. Pain control. PT/OT for Assisted Facility. 12/28/2020 Admit to TCU with debility, here for rehabilitation, strengthening, prior to discharge home with family. Past Medical History Past Medical History (Chronic Problems): Chronic Problems Diabetes mellitus (Chronic) Vitamin D deficiency (Chronic) Hypertension (Chronic) Hypothyroidism (Chronic) Tobacco abuse (Chronic) Celiac disease (Chronic) Irritable bowel syndrome (Chronic) Cannabis abuse (Chronic) Allergies aspirin Allergy (Verified 12/18/20 15:33) mouth swelling gluten Allergy (Verified 12/20/20 06:44) Abd cramps/diarrhea ibuprofen Allergy (Verified 12/18/20 15:33) mouth swelling Sulfa (Sulfonamide Antibiotics) Allergy (Verified 12/18/20 15:33) pt can't remember Home Medications: Ambulatory Orders Medication Instructions Recorded Acetaminophen [Tylenol Extra 1,000 mg PO Q4H PRN PRN 12/18/20 Strength] Ergocalciferol (Vitamin D2) 50,000 unit PO MOFR 12/18/20 [Vitamin D2] Glimepiride 2 mg PO DINNER 12/18/20 Metoprolol Succinate 25 mg PO DAILY 12/18/20 Thyroid,Pork [General Clerk Thyroid 120] 240 mg PO WESA 12/18/20 Thyroid,Pork [General Clerk Thyroid] 120 tablet PO DAILY 12/18/20 Gabapentin 300 mg PO TID 12/28/20 cycloBENZAPRine HCl [Flexeril] 10 mg PO TID PRN PRN 12/28/20 Surgical History: cholecystectomy, herniorrhaphy, tonsillectomy, - - L1-L2 posterior spinal disc fusion with discectomy. 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 Tobacco Use: Cigarettes Alcohol: None Drugs: Marijuana - Daily. - *Family History Maternal History Items: High Cholesterol, Heart Disease, - - Depression, mental illness. Paternal History Items: Diabetes, High Cholesterol, Heart Disease - s/p [place]. Review of Systems Constitutional: Denies: Chills, Fever, Weight Change HEENT: Denies: Head Aches, Sinus Congestion, Sinus Drainage Cardiovascular: Denies: Chest Pain, Palpitations Respiratory: Denies: Cough, Shortness of breath at rest, Sputum production Gastrointestinal: Denies: Abdominal Pain, Nausea, Vomiting Genitourinary: Denies: Dysuria Musculoskeletal: Denies: Joint Pain, Joint Tenderness Skin: Denies: Rash, Wounds Neurological: Reports: Focal weakness - Bilateral lower extremities., Numbness. Denies: Tingling Psychiatric: Denies: Anxiety, Depression, Homicidal Ideations, Suicidal Ideations Hematologic/ Lymphatic: Denies: Easy Bruising, Easy Bleeding VTE Information - Inpt Only VTE Present on Admission: No VTE Mechan Device Prophylaxis: Knee High SYLWIA Hose VTE Pharm Prophylaxis ordered?: Yes Patient Problems: Active and Suspected Problems Intractable back pain (Acute) Debility (Acute) Lumbar disc herniation with radiculopathy (Acute) Lumbar spinal stenosis (Acute) Muscle spasm (Acute) Neuropathic pain (Acute) Ulcerative colitis (Acute) - Physical Exam Vitals/I&O's: Vital Signs Temp Pulse Resp BP Pulse Ox 97.8 F 88 18 120/49 L 96 12/28/20 17:02 12/28/20 17:02 12/28/20 17:02 12/28/20 17:02 12/28/20 17:02 Oxygen Delivery Method Room Air Weight: 81.647 kg Body Mass Index (BMI) 35.2 General: Alert, Oriented x3, Cooperative HEENT: Atraumatic, PERRLA, EOMI, Normocephalic Neck: Supple, No JVD, Negative Carotid Bruits Lungs: Clear to auscultation, Normal air movement Cardiovascular: Regular rate, No murmurs Abdomen: Bowel Sounds Present, Soft, Non Tender Extremities: No edema, Capillary Refill Less than 3 Seconds Skin: No rashes, No breakdown Musculoskeletal: No Tenderness to Palpation of Joints or Extremities Neurological: Cranial nerves II-XII grossly intact, - - Bilateral lower extremity weakness. Psych/Mental Status: Normal Affect, Appropriate Current Medications Cyclobenzaprine HCl (Cyclobenzaprine Hcl 10 Mg Tablet) 10 mg PO TID PRN PRN PRN Reason: Muscle spasms Last Admin: 12/28/20 18:06 Dose: 10 mg Documented by: Ergocalciferol (Ergocalciferol 50,000 Unit Capsule) 50,000 unit PO MOFR [facility] Gabapentin (Gabapentin 300 Mg Capsule) 300 mg PO TID [facility] Stop: 01/04/21 14:01 Glimepiride (Glimepiride 2 Mg Tablet) 2 mg PO DINNER [facility] Metoprolol Succinate (Metoprolol(Xl)Succ 25 Mg Tablet) 25 mg PO DAILY [facility] Oxycodone HCl (Oxycodone 5 Mg Tablet) 10 mg PO Q4H PRN PRN PRN Reason: Pain Score 6-10 Last Admin: 12/28/20 19:41 Dose: 10 mg Documented by: Thyroid (Thyroid 60 Mg Tablet) 120 mg PO SuMoTuThFr SUSANA Thyroid (Thyroid 60 Mg Tablet) 240 mg PO WESA [facility] Assessment/Plan All Active Problems Lumbar radiculopathy (Acute) Intractable back pain (Acute) Ambulatory dysfunction (Acute) Debility (Acute) Lumbar disc herniation with radiculopathy (Acute) Lumbar spinal stenosis (Acute) Muscle spasm (Acute) Neuropathic pain (Acute) Ulcerative colitis (Acute) 65 year old female with below past medical history hospitalized for intractable back pain, underwent L1-L2 posterior spinal disc fusion with discectomy, admitted to TCU with debility, here for rehabilitation, strengthening, prior to discharge home with family. Debility - PT/OT. Pain - Tylenol 1000MG Q6H PRN pain (1-3), Tramadol 50MG Q6H PRN pain (4-5), Oxycodone 10MG Q4H PRN pain (6-10). Bowel - Miralax 17GM BID, Senna/colace 2 tablets BID, MOM 30ML daily PRN, Dulcolax 10MG daily PRN. Adult immunization - Administer Prevnar 13, Pneumovax 23, Fluzone, COVID19 vaccine appropriate. DVT prophylaxis - Lovenox 40MG SC daily. Muscle spasm - Flexeril 10MG TID PRN. Vitamin D deficiency - D2 50,000 2 days per week. Neuropathic pain - Gabapentin 300MG TID thru 01/04/2021. Diabetes Mellitus II - Glimepiride 2MG with dinner. Nutrition - Glucerna 120ML PO TID. Hypertension - Metoprolol succinate 25MG daily. Hypothyroidism - [place] Thyroid 120MG 5 days per week, 240MG 2 days per week.
[2020-12-28 20:58] VITALS: RESP 18
[2020-12-28] MEDS: Gabapentin 300 MG Capsule PO (20:58)
--- NOTE | 2020-12-29 05:47 | CPS ---
Pt. adamantly refused CoVid-19 PCR test. She stated that she was swabbed in [place] less than 24 hours ago. RN notified.
[2020-12-29 05:48] VITALS: BP 156/73; PULSE 85; RESP 18; TEMP 36.7; O2SAT 95
[2020-12-29 05:52] VITALS: BP 156/73; PULSE 85
[2020-12-29] MEDS: Senna/Docusate Sodium 1 Tablet 2 TABLET PO ×2 (05:52→17:34)
[2020-12-29] MEDS: Metoprolol(XL)Succ 25 MG Tablet PO (05:52)
[2020-12-29] MEDS: cycloBENZAPRine HCl 10 MG Tablet PO ×3 (05:52→21:13)
[2020-12-29] MEDS: Enoxaparin 40 MG/0.4 ML Syringe SC (05:52)
[2020-12-29] MEDS: Gabapentin 300 MG Capsule PO ×3 (05:52→20:50)
[2020-12-29] MEDS: oxyCODONE 5 MG Tablet 10 MG PO ×3 (05:53→20:48)
[2020-12-29] MEDS: Thyroid 60 MG Tablet 240 MG PO (05:53)
[2020-12-29] MEDS: Glucerna Shake 120 ML LIQUID PO (08:18)
[2020-12-29 11:58] VITALS: PULSE 87; RESP 18; O2SAT 96
[2020-12-29 12:01] LABS: Bedside Glucose 286 mg/dL (70-110)
[2020-12-29 14:16] LABS: Absolute Lymphocyte Count 1.54 X10^3/uL (0.83-4.51); Absolute Neutrophil Count 7.1 X10^3/uL (2.0-7.7); Basophil# 0.07 X10^3/uL; Basophil% 0.7 % (0-1); Eosinophil# 0.49 X10^3/uL; Eosinophils% 4.7 % (0-5); Hematocrit 38.5 % (37-47); Hemoglobin 12.6 g/dL (12.0-15.0); Lymphocyte # 1.54 X10^3/ul (4.0); Lymphocyte % 14.7 % (19-41); Mean Corp Hgb Conc 32.7 g/dL (32-36); Mean Corpuscular Hgb 30.3 pg (27.0-32.0); Mean Corpuscular Volume 92.5 fL (81-99); Mean Platelet Vol. 8.8 fl (6.2-12.0); Monocyte# 1.06 X10^3/uL; Monocyte% 10.1 % (0-10); NRBC Flagged by Analyzer 0 % (0-5); Platelet Count 370 K/mm3 (150-450); RBC Distribution Width CV 12.6 % (11.6-14.6); RBC Distribution Width SD 42.8 fl (35.1-43.9); Red Blood Count 4.16 M/mm3 (4.2-5.4); White Blood Count 10.5 K/mm3 (4.4-11.0)
[2020-12-29 14:30] LABS: Anion Gap 6 (5-15); BUN 12 mg/dL (7-18); BUN/Creat Ratio 25.2 RATIO (10-20); Calcium,Total 8.8 mg/dL (8.5-10.1); Chloride 98 mmol/L (98-107); Creatinine, Serum 0.48 mg/dL (0.55-1.02); EST Glomerular Filtration Rate 139 mL/min (>60); Est Glom Filt Rate - Afr Amer 168 mL/min (>60); Estimated Creatinine Clearance 83.93 ml/min; Glucose 226 mg/dL (74-106); Sodium Level 133 mmol/L (136-145)
[2020-12-29 15:05] VITALS: BP 126/72; PULSE 87; RESP 18; TEMP 36.9; O2SAT 96
[2020-12-29] MEDS: Glimepiride 2 MG Tablet PO (17:34)
[2020-12-29] MEDS: Insulin Lispro 100 UNIT/ML INSULN.PEN SC (17:34)
[2020-12-29] MEDS: Polyethylene Glycol 3350 17 GM PACKET PO (17:36)
[2020-12-29] MEDS: Acetaminophen 500 MG Tablet 1000 MG PO (21:13)
[2020-12-29 23:01] LABS: Bedside Glucose 258 mg/dL (70-110)
[2020-12-30 03:49] VITALS: BP 110/80; PULSE 74; RESP 16; TEMP 36.3; O2SAT 94
[2020-12-30] MEDS: oxyCODONE 5 MG Tablet 10 MG PO ×5 (03:50→23:23)
[2020-12-30 05:31] VITALS: BP 119/67; PULSE 70
[2020-12-30] MEDS: Enoxaparin 40 MG/0.4 ML Syringe SC (05:32)
[2020-12-30] MEDS: Thyroid 60 MG Tablet 120 MG PO (05:32)
[2020-12-30] MEDS: Polyethylene Glycol 3350 17 GM PACKET PO ×2 (05:33→17:00)
[2020-12-30] MEDS: Gabapentin 300 MG Capsule PO ×3 (05:33→20:57)
[2020-12-30] MEDS: Senna/Docusate Sodium 1 Tablet 2 TABLET PO ×2 (05:34→17:00)
[2020-12-30 05:35] VITALS: PULSE 70
[2020-12-30] MEDS: Metoprolol(XL)Succ 25 MG Tablet PO (05:35)
[2020-12-30 06:26] LABS: Bedside Glucose 144 mg/dL (70-110)
--- NOTE | 2020-12-30 07:38 | NURSING ---
Placed PRAFO boots on patient yesterday evening, she was in bad pain and said she couldn't tolerate them, had staff remove them about 20 mins later, refused to wear.
[2020-12-30] MEDS: Glucerna Shake 120 ML LIQUID PO (07:55)
[2020-12-30 10:43] VITALS: PULSE 73; RESP 20; O2SAT 97
[2020-12-30 10:51] LABS: Bedside Glucose 203 mg/dL (70-110)
[2020-12-30] MEDS: Acetaminophen 500 MG Tablet 1000 MG PO ×2 (11:53→19:22)
[2020-12-30] MEDS: cycloBENZAPRine HCl 10 MG Tablet PO ×2 (11:54→20:57)
--- NOTE | 2020-12-30 14:00 | CPS ---
pt continues to refuse being covid swabbed.
[2020-12-30 15:56] VITALS: BP 135/57; PULSE 73; RESP 20; TEMP 36.8; O2SAT 97
[2020-12-30 16:31] LABS: Bedside Glucose 210 mg/dL (70-110)
[2020-12-30] MEDS: Menthol/Lanolin/Calamine/Znox 113 GM Tube 1 APPLIC TOPICAL (17:00)
[2020-12-30] MEDS: Glimepiride 2 MG Tablet PO (17:00)
--- NOTE | 2020-12-30 18:11 | NURSING ---
This nurse spoke with patient about the need for another COVID test and patient refused. This nurse explained the reasons why each patient on TCU gets 2 tests and she still refused. Charge nurse made aware of situation.
[2020-12-30 21:16] LABS: Bedside Glucose 246 mg/dL (70-110)
[2020-12-31] MEDS: oxyCODONE 5 MG Tablet 10 MG PO ×4 (04:26→16:48)
[2020-12-31] MEDS: Polyethylene Glycol 3350 17 GM PACKET PO ×2 (04:27→16:49)
[2020-12-31] MEDS: Senna/Docusate Sodium 1 Tablet 2 TABLET PO ×2 (04:28→16:49)
[2020-12-31 04:31] VITALS: BP 128/74; PULSE 80; RESP 14; TEMP 36.4; O2SAT 96
[2020-12-31] MEDS: Menthol/Lanolin/Calamine/Znox 113 GM Tube 1 APPLIC TOPICAL ×2 (04:34→16:49)
[2020-12-31 06:25] VITALS: BP 123/69; PULSE 66
[2020-12-31] MEDS: Enoxaparin 40 MG/0.4 ML Syringe SC (06:25)
[2020-12-31] MEDS: Thyroid 60 MG Tablet 120 MG PO (06:26)
[2020-12-31 06:27] VITALS: PULSE 66
[2020-12-31] MEDS: Gabapentin 300 MG Capsule PO ×3 (06:27→22:19)
[2020-12-31] MEDS: Metoprolol(XL)Succ 25 MG Tablet PO (06:27)
[2020-12-31 06:31] LABS: Bedside Glucose 179 mg/dL (70-110)
[2020-12-31] MEDS: cycloBENZAPRine HCl 10 MG Tablet PO ×2 (06:36→14:24)
[2020-12-31 11:15] LABS: Bedside Glucose 351 mg/dL (70-110)
--- NOTE | 2020-12-31 11:34 | NURSING ---
Addendum entered by Kathy Garner 12/31/20 11:42: R' NOTIFIED OF NEW ORDERS. Original Note: BS 351. NOTIFIED DR CHATMAN. 10 UNITS HUMALOG X1 AND INCREASE LANTUS TO 20UNITS AT HS.
[2020-12-31] MEDS: Acetaminophen 500 MG Tablet 1000 MG PO ×2 (11:47→18:01)
[2020-12-31] MEDS: Insulin Lispro 100 UNIT/ML INSULN.PEN 10 UNIT SC (11:52)
[2020-12-31] MEDS: Bisacodyl 5 MG Tablet 10 MG PO (14:24)
--- NOTE | 2020-12-31 14:33 | NURSING ---
R' TALKING TO WATCH ADJUSTER AND STARTED TO C/O OF FEELING SHAKEY. CHECKED BLOOD SUGAR-258. 1:1 EMOTIONAL SUPPORT GIVEN. ONCE WATCH ADJUSTER LEFT ROOM SHE FELT BETTER. SHE STATES I JUST GOT WEIRD FEELING TALKING ABOUT DYING AND SIGNING FORMS. ASKED IF R' TAKES ANXITY MEDS AT HOME BUT DENIED. SHE STATES I TOOK MYSELF OFF THOSE, I DON'T WANT THOSE.
--- NOTE | 2020-12-31 14:33 | MDS.RN ---
Attempted x2 to contact sister Diamond to inform of care plan meeting this week. Voicemail full.
[2020-12-31 14:41] LABS: Bedside Glucose 258 mg/dL (70-110)
--- NOTE | 2020-12-31 15:10 | CASEMGMT ---
Social Work Code Status reviewed, pt confirmed wants to be a full code. MOLST form reviewed, communication to physician, form placed in chart. BERNIE Martini
[2020-12-31 15:39] VITALS: BP 131/74; PULSE 70; RESP 16; TEMP 36; O2SAT 96
[2020-12-31 16:50] LABS: Bedside Glucose 205 mg/dL (70-110)
[2020-12-31] MEDS: Glimepiride 2 MG Tablet PO (16:50)
[2020-12-31] MEDS: Magnesium Citrate 300 ML PO (17:58)
--- NOTE | 2020-12-31 20:41 | PCA ---
VICE PRESIDENT TALENT MANAGEMENT went into patients room to see if she needed anything and wanted to get washed up for the night. Patient stated that this VICE PRESIDENT TALENT MANAGEMENT was the first one to offer and that it been a couple of days since she has been washed. VICE PRESIDENT TALENT MANAGEMENT listened to patients concerns and asked if they want to change their gown and wash a little. Patient said what's the point they just gave me stuff to have a bowel movement and im just going to get dirty. Might as well wait until i go and wash me up then. VICE PRESIDENT TALENT MANAGEMENT asked if there was anything else they could get for her. patient stated not at this time
[2020-12-31 21:16] LABS: Bedside Glucose 229 mg/dL (70-110)
[2020-12-31] MEDS: Nystatin Powder 15gm Bottle 1 APPLIC TOPICAL (22:19)
--- NOTE | 2020-12-31 22:45 | NURSING ---
Refused Lantus d/t concerns with hypoglycemia and initially expresses she will not consume a snack. Verbalizes she does not take insulin at home.
--- NOTE | 2020-12-31 23:30 | NURSING ---
Bladder scan completed per OLVIN Trevino, for greater than [address] cath completed using 15 fr cath, sterile technique x1 attempt successful. Immediate return of 900 ml straw colored urine in graduate and moderate amount of additional urine on drapes. Pt tolerated well and expresses some relief from discomfort. staff to continue to monitor.
[2021-01-01] MEDS: Acetaminophen 500 MG Tablet 1000 MG PO ×2 (00:30→21:29)
[2021-01-01] MEDS: cycloBENZAPRine HCl 10 MG Tablet PO ×3 (00:31→20:26)
[2021-01-01] MEDS: oxyCODONE 5 MG Tablet 10 MG PO ×4 (02:52→21:29)
[2021-01-01 06:45] VITALS: BP 130/77; PULSE 68; RESP 16; TEMP 36.2; O2SAT 95
[2021-01-01] MEDS: Polyethylene Glycol 3350 17 GM PACKET PO ×2 (06:49→16:50)
[2021-01-01] MEDS: Menthol/Lanolin/Calamine/Znox 113 GM Tube 1 APPLIC TOPICAL ×2 (06:49→14:10)
[2021-01-01] MEDS: Thyroid 60 MG Tablet 120 MG PO (06:49)
[2021-01-01 06:50] VITALS: BP 130/77; PULSE 68
[2021-01-01 06:50] LABS: Bedside Glucose 220 mg/dL (70-110)
[2021-01-01] MEDS: Senna/Docusate Sodium 1 Tablet 2 TABLET PO ×2 (06:50→16:50)
[2021-01-01] MEDS: Gabapentin 300 MG Capsule PO ×3 (06:50→21:29)
[2021-01-01] MEDS: Metoprolol(XL)Succ 25 MG Tablet PO (06:50)
[2021-01-01] MEDS: Enoxaparin 40 MG/0.4 ML Syringe SC (06:50)
[2021-01-01] MEDS: Nystatin Powder 15gm Bottle 1 APPLIC TOPICAL ×2 (06:51→12:55)
--- NOTE | 2021-01-01 08:40 | RAD_ITS ---
STUDY: X-RAY - ABDOMEN/PELVIS REASON FOR EXAM: Female, 65 years old. Abdominal pain, distention TECHNIQUE: Two AP supine views of the abdomen and pelvis. COMPARISON: None. FINDINGS: Normal visualized lung bases. There is an unremarkable bowel gas pattern. There is no demonstrated free abdominal air. The visualized liver, spleen and kidneys are grossly normal in size and morphology. Normal soft tissue structures. Surgical hardware in L2 and L3 free of complication Multiple Sitz markers noted, likely in the ascending colon RAD/Abdomen Single View IMPRESSION: No acute findings Electronically Signed: Sánchez Zaldivar MD at 9:05 EDT , Service support ,
--- NOTE | 2021-01-01 09:15 | MDS.RN ---
attempted to contact sister Diamond regarding care plan meeting this week, voicemail full.
[2021-01-01 10:41] LABS: Bedside Glucose 220 mg/dL (70-110)
[2021-01-01] MEDS: Glucerna Shake 120 ML LIQUID PO ×2 (11:32→16:53)
--- NOTE | 2021-01-01 13:00 | NURSING ---
Addendum entered by Deisy Dye 01/01/21 14:14: Explained to resident that TCU to cover transportation cost to appointment. Agreeable to go so appt. made for next Thursday with transportation by cot set up. Suppository given at this time. Has had 2 really small BM's today. Tearful and anxious that she is not able to urinate. Urinated a small amount earlier today when Purewick in place. Placed Purewick at this time and encouraged to relax and try to urinate. Will reevaluate and scan bladder later today. Original Note: Refusing pneumonia vaccine at this time. Surgeon office calls and they are recommending to see resident in the next week or so and resident refusing to go to appointment. Encouraged resident that she should try and make appointment. OLVIN Recinos aware. Resident in bed and reports her abdomen feels full. Able to urinate a small amount and have a bowel movement.
--- NOTE | 2021-01-01 13:06 | MDS.RN ---
contacted sister Diamond, aware of phone conference care plan meeting scheduled. Diamond states she will try to clear voicemail.
[2021-01-01] MEDS: Bisacodyl 10 MG Suppository RC (14:07)
[2021-01-01 14:43] VITALS: BP 157/92; PULSE 77; RESP 14; TEMP 36; O2SAT 97
--- NOTE | 2021-01-01 15:26 | PHA.CONS_ITS ---
<Douglas Martines C - Last Filed: 01/01/21 15:26> Progress Note - Pharmacy Subjective: [] TCU Admission Objective: Allergies aspirin Allergy (Verified 12/18/20 15:33) mouth swelling gluten Allergy (Verified 12/20/20 06:44) Abd cramps/diarrhea ibuprofen Allergy (Verified 12/18/20 15:33) mouth swelling Sulfa (Sulfonamide Antibiotics) Allergy (Verified 12/18/20 15:33) pt can't remember Current Medications Generic Name Dose Route Start Last Admin Trade Name Freq PRN Reason Stop Dose Admin Acetaminophen 1,000 mg 12/28/20 20:08 01/01/21 00:30 Acetaminophen 500 Mg Tablet PO 1,000 mg Q6H PRN Administration Pain Score 1-3 Bisacodyl 10 mg 12/28/20 20:09 12/31/20 14:24 Bisacodyl 5 Mg Tablet PO 10 mg DAILY PRN Administration Constipation Calamine/Phenol 1 applic 12/30/20 18:00 01/01/21 14:10 Menthol/Lanolin/Calamine/Znox 113 Gm Tube TOPICAL 1 applic BID SUSANA Administration Protocol Cyclobenzaprine HCl 10 mg 12/28/20 17:13 01/01/21 08:53 Cyclobenzaprine Hcl 10 Mg Tablet PO 10 mg TID PRN PRN Administration Muscle spasms Enoxaparin Sodium 40 mg 12/29/20 06:00 01/01/21 06:50 Enoxaparin 40 Mg/0.4 Ml Syringe SC 40 mg DAILY@0600 SUSANA Administration Ergocalciferol 50,000 unit 12/31/20 06:00 12/31/20 06:27 Ergocalciferol 50,000 Unit Capsule PO 50,000 unit MOFR SUSANA Administration Gabapentin 300 mg 12/28/20 22:00 01/01/21 14:11 Gabapentin 300 Mg Capsule PO 01/04/21 14:01 300 mg TID SUSANA Administration Glimepiride 2 mg 12/29/20 17:00 12/31/20 16:50 Glimepiride 2 Mg Tablet PO 2 mg DINNER SUSANA Administration Insulin Glargine 30 units 01/01/21 22:00 Insulin Glargine 100 Units/Ml Pen SC QHS SUSANA Magnesium Hydroxide 30 ml 12/28/20 20:09 Magnesium Hydroxide 30 Ml Udc PO DAILY PRN Constipation Metoprolol Succinate 25 mg 12/29/20 06:00 01/01/21 06:50 Metoprolol(Xl)Succ 25 Mg Tablet PO 25 mg DAILY SUSANA Administration Nutritional Formula (Lactose Free) 120 ml 12/29/20 07:45 01/01/21 11:32 Glucerna Shake 120 Ml Liquid PO 120 ml TIDCM SUSANA Administration Nystatin 1 applic 12/31/20 22:00 01/01/21 12:55 Nystatin Powder 15gm Bottle TOPICAL 1 each BID SUSANA Administration Protocol Oxycodone HCl 10 mg 12/28/20 18:07 01/01/21 09:52 Oxycodone 5 Mg Tablet PO 10 mg Q4H PRN PRN Administration Pain Score 6-10 Polyethylene Glycol 17 gm 12/29/20 06:00 01/01/21 06:49 Polyethylene Glycol 3350 17 Gm Packet PO 17 gm BID SUSANA Administration Senna/Docusate Sodium 2 tablet 12/29/20 06:00 01/01/21 06:50 Senna/Docusate Sodium 1 Tablet PO 2 tablet BID SUSANA Administration Tamsulosin HCl 0.4 mg 01/01/21 17:30 Tamsulosin Hcl 0.4 Mg Capsule PO DAILY@1730 SUSANA Thyroid 120 mg 12/30/20 06:00 01/01/21 06:49 Thyroid 60 Mg Tablet PO 120 mg SuMoTuThFr [facility] Administration Thyroid 240 mg 12/29/20 06:00 12/29/20 05:53 Thyroid 60 Mg Tablet PO 240 mg WESA [facility] Administration Tramadol HCl 50 mg 12/28/20 20:08 Tramadol 50 Mg Tablet PO Q6H PRN PRN Pain Score 4-5 Problem List Intractable back pain (Acute) Debility (Acute) Lumbar disc herniation with radiculopathy (Acute) Lumbar spinal stenosis (Acute) Diabetes mellitus (Chronic) Vitamin D deficiency (Chronic) Hypertension (Chronic) Hypothyroidism (Chronic) Tobacco abuse (Chronic) Muscle spasm (Acute) Neuropathic pain (Acute) Ulcerative colitis (Acute) Celiac disease (Chronic) Irritable bowel syndrome (Chronic) Cannabis abuse (Chronic) Vital Signs Temp Pulse Resp BP Pulse Ox 96.8 F L 77 14 157/92 H 97 01/01/21 14:43 01/01/21 14:43 01/01/21 14:43 01/01/21 14:43 01/01/21 14:43 Oxygen Delivery Method Room Air Weight: 81.647 kg Body Mass Index (BMI) 35.2 Sodium 133 mmol/L (136-145) L 12/29/20 14:10 Potassium 4.0 mmol/L (3.5-5.1) 12/29/20 14:10 Chloride 98 mmol/L (98-107) 12/29/20 14:10 Carbon Dioxide 29.0 mmol/L (21.0-32.0) 12/29/20 14:10 Anion Gap 6 (5-15) 12/29/20 14:10 BUN 12 mg/dL (7-18) 12/29/20 14:10 Creatinine 0.48 mg/dL (0.55-1.02) L 12/29/20 14:10 Est GFR (MDRD) Af Amer 168 mL/min (>60) 12/29/20 14:10 Est GFR (MDRD) Non-Af 139 mL/min (>60) 12/29/20 14:10 BUN/Creatinine Ratio 25.2 RATIO (10-20) H 12/29/20 14:10 Glucose 226 mg/dL (74-106) H 12/29/20 14:10 Assessment/Plan: 1) Pain: Acetaminophen 1000mg po q6h prn for pain 1-3, Tramadol 50mg po q6h prn for pain 4-5, Oxycodone 10mg po q4h prn for pain 6-10. Please continue to monitor prn usage and for signs/symptoms of increased/decreased pain. 2) DVT Prophylaxis: Enoxaparin 40mg subq daily. Pt's SrCr is 0.48, CrCr is 84. Please continue to monitor. Pt's Plts are 370 (within normal limits). Please continue to monitor. 3) Muscle Spasms: Cyclobenzaprine 10mg po tid prn for muscle spasms. Please continue to monitor for sedation after administration. *4) Hypothyroidism: Thyroid 120mg po daily, and an additional 120mg on Thu and Sat. --Please consider a yearly TSH level while the pt is on [place] Thyroid. Thanks *5) Vitamin D deficiency: Ergocalciferol 50,000 unit po on Mon and Fri. --Please consider a yearly Vitamin D level while the pt is on Ergocalciferol 50,000 units. Thanks 6) Hypertension: Metoprolol Succinate 25mg po daily. Pt's average pulse rate is 71.1. Please continue to monitor. Pt's average blood pressure is 128.9/73.9. Please continue to monitor. 7) Diabetes: Glimepiride 2mg po with dinner, Lantus 30 units subq qhs. Pt's average blood sugar readings for the last 15 readings is 240.4. Please continue to monitor and adjust medications accordingly. 8) Difficulty Urinating: Tamsulosin 0.4mg po daily at 1730. Please monitor effectiveness of Tamsulosin. Psychotropic Medications: none Unnecessary Medications: none Bowel Regimen: Bisacodyl 10mg po daily as needed for constipation, Magnesium Hydroxide 30ml po daily prn for constipation, Senna/Docusate 2 tablets po bid, Miralax 17gm po bid. Please continue to monitor prn usage and for signs/symptoms of constipation/diarrhea Date of Note:: 01/01/21 - Provider Comments Provider responsibility: Provider responsible to enter orders to implement recommendations <Jayce Arias Chi - Last Filed: 01/01/21 17:32> Progress Note - Pharmacy Subjective: [] Objective: Allergies aspirin Allergy (Verified 12/18/20 15:33) mouth swelling gluten Allergy (Verified 12/20/20 06:44) Abd cramps/diarrhea ibuprofen Allergy (Verified 12/18/20 15:33) mouth swelling Sulfa (Sulfonamide Antibiotics) Allergy (Verified 12/18/20 15:33) pt can't remember Current Medications Generic Name Dose Route Start Last Admin Trade Name Kenq PRN Reason Stop Dose Admin Acetaminophen 1,000 mg 12/28/20 20:08 01/01/21 00:30 Acetaminophen 500 Mg Tablet PO 1,000 mg Q6H PRN Administration Pain Score 1-3 Bisacodyl 10 mg 12/28/20 20:09 12/31/20 14:24 Bisacodyl 5 Mg Tablet PO 10 mg DAILY PRN Administration Constipation Calamine/Phenol 1 applic 12/30/20 18:00 01/01/21 14:10 Menthol/Lanolin/Calamine/Znox 113 Gm Tube TOPICAL 1 applic BID SUSANA Administration Protocol Cyclobenzaprine HCl 10 mg 12/28/20 17:13 01/01/21 08:53 Cyclobenzaprine Hcl 10 Mg Tablet PO 10 mg TID PRN PRN Administration Muscle spasms Enoxaparin Sodium 40 mg 12/29/20 06:00 01/01/21 06:50 Enoxaparin 40 Mg/0.4 Ml Syringe SC 40 mg DAILY@0600 SUSANA Administration Ergocalciferol 50,000 unit 12/31/20 06:00 12/31/20 06:27 Ergocalciferol 50,000 Unit Capsule PO 50,000 unit MOFR SUSANA Administration Gabapentin 300 mg 12/28/20 22:00 01/01/21 14:11 Gabapentin 300 Mg Capsule PO 01/04/21 14:01 300 mg TID [facility] Administration Glimepiride 2 mg 12/29/20 17:00 01/01/21 16:50 Glimepiride 2 Mg Tablet PO 2 mg DINNER [facility] Administration Insulin Glargine 30 units 01/01/21 22:00 Insulin Glargine 100 Units/Ml Pen SC QHS SUSANA Magnesium Hydroxide 30 ml 12/28/20 20:09 Magnesium Hydroxide 30 Ml Udc PO DAILY PRN Constipation Metoprolol Succinate 25 mg 12/29/20 06:00 01/01/21 06:50 Metoprolol(Xl)Succ 25 Mg Tablet PO 25 mg DAILY [facility] Administration Nutritional Formula (Lactose Free) 120 ml 12/29/20 07:45 01/01/21 16:53 Glucerna Shake 120 Ml Liquid PO 120 ml TIDCM [facility] Administration Nystatin 1 applic 12/31/20 22:00 01/01/21 12:55 Nystatin Powder 15gm Bottle TOPICAL 1 each BID [facility] Administration Protocol Oxycodone HCl 10 mg 12/28/20 18:07 01/01/21 16:54 Oxycodone 5 Mg Tablet PO 10 mg Q4H PRN PRN Administration Pain Score 6-10 Polyethylene Glycol 17 gm 12/29/20 06:00 01/01/21 16:50 Polyethylene Glycol 3350 17 Gm Packet PO 17 gm BID SUSANA Administration Senna/Docusate Sodium 2 tablet 12/29/20 06:00 01/01/21 16:50 Senna/Docusate Sodium 1 Tablet PO 2 tablet BID SUSANA Administration Tamsulosin HCl 0.4 mg 01/01/21 17:30 01/01/21 16:50 Tamsulosin Hcl 0.4 Mg Capsule PO 0.4 mg DAILY@1730 SUSANA Administration Thyroid 120 mg 12/30/20 06:00 01/01/21 06:49 Thyroid 60 Mg Tablet PO 120 mg SuMoTuThFr SUSANA Administration Thyroid 240 mg 12/29/20 06:00 12/29/20 05:53 Thyroid 60 Mg Tablet PO 240 mg WESA SUSANA Administration Tramadol HCl 50 mg 12/28/20 20:08 Tramadol 50 Mg Tablet PO Q6H PRN PRN Pain Score 4-5 Problem List Intractable back pain (Acute) Debility (Acute) Lumbar disc herniation with radiculopathy (Acute) Lumbar spinal stenosis (Acute) Diabetes mellitus (Chronic) Vitamin D deficiency (Chronic) Hypertension (Chronic) Hypothyroidism (Chronic) Tobacco abuse (Chronic) Muscle spasm (Acute) Neuropathic pain (Acute) Ulcerative colitis (Acute) Celiac disease (Chronic) Irritable bowel syndrome (Chronic) Cannabis abuse (Chronic) Vital Signs Temp Pulse Resp BP Pulse Ox 96.8 F L 77 14 157/92 H 97 01/01/21 14:43 01/01/21 14:43 01/01/21 14:43 01/01/21 14:43 01/01/21 14:43 Oxygen Delivery Method Room Air Weight: 80.824 kg Body Mass Index (BMI) 35.2 Sodium 133 mmol/L (136-145) L 12/29/20 14:10 Potassium 4.0 mmol/L (3.5-5.1) 12/29/20 14:10 Chloride 98 mmol/L (98-107) 12/29/20 14:10 Carbon Dioxide 29.0 mmol/L (21.0-32.0) 12/29/20 14:10 Anion Gap 6 (5-15) 12/29/20 14:10 BUN 12 mg/dL (7-18) 12/29/20 14:10 Creatinine 0.48 mg/dL (0.55-1.02) L 12/29/20 14:10 Est GFR (MDRD) Af Amer 168 mL/min (>60) 12/29/20 14:10 Est GFR (MDRD) Non-Af 139 mL/min (>60) 12/29/20 14:10 BUN/Creatinine Ratio 25.2 RATIO (10-20) H 12/29/20 14:10 Glucose 226 mg/dL (74-106) H 12/29/20 14:10 Assessment/Plan: Psychotropic Medications: Unnecessary Medications: Bowel Regimen: - Provider Comments Provider responsibility: Provider responsible to enter orders to implement recommendations Provider Comments to Recommendations by Pharmacy: Agree
[2021-01-01 16:41] LABS: Bedside Glucose 211 mg/dL (70-110)
[2021-01-01] MEDS: Tamsulosin HCl 0.4 MG Capsule PO (16:50)
[2021-01-01] MEDS: Glimepiride 2 MG Tablet PO (16:50)
[2021-01-01 20:36] LABS: Bedside Glucose 219 mg/dL (70-110)
[2021-01-02] MEDS: oxyCODONE 5 MG Tablet 10 MG PO ×5 (02:07→22:20)
[2021-01-02 04:53] VITALS: BP 126/61; PULSE 80; RESP 16; TEMP 36.1; O2SAT 93
[2021-01-02] MEDS: Enoxaparin 40 MG/0.4 ML Syringe SC (05:02)
[2021-01-02] MEDS: Menthol/Lanolin/Calamine/Znox 113 GM Tube 1 APPLIC TOPICAL ×2 (05:02→17:35)
[2021-01-02] MEDS: Gabapentin 300 MG Capsule PO ×3 (05:02→22:22)
[2021-01-02 05:03] VITALS: PULSE 80
[2021-01-02] MEDS: Metoprolol(XL)Succ 25 MG Tablet PO (05:03)
[2021-01-02] MEDS: Thyroid 60 MG Tablet 240 MG PO (05:03)
[2021-01-02] MEDS: Nystatin Powder 15gm Bottle 1 APPLIC TOPICAL ×2 (05:04→17:36)
[2021-01-02] MEDS: Acetaminophen 500 MG Tablet 1000 MG PO ×3 (06:13→20:10)
[2021-01-02 07:56] LABS: Bedside Glucose 157 mg/dL (70-110)
--- NOTE | 2021-01-02 11:38 | CASEMGMT ---
BIMS and PHQ9 interviews completed on this date for MDS assessment. JARETH Alvarez
--- NOTE | 2021-01-02 11:41 | NURSING ---
NO prior authoration needed per [facility] comp office, spoke with [facility]. faxed MRI order down.
[2021-01-02] MEDS: cycloBENZAPRine HCl 10 MG Tablet PO ×2 (11:55→20:10)
[2021-01-02] MEDS: Glucerna Shake 120 ML LIQUID PO (12:03)
[2021-01-02 15:06] VITALS: BP 106/59; PULSE 71; RESP 16; TEMP 36.8; O2SAT 97
--- NOTE | 2021-01-02 15:08 | CASEMGMT ---
Addendum entered by Hafsa Denny 01/02/21 15:35: Received call from dtr inquiring about DC information. Pt gave permission to speak with dtr. Explained to dtr the below information at length. Dtr expressed understanding for SNF and reports pt is already active with [facility]. Email sent to [facility] to inquire about status. Dtr stated she is realistic that pt cannot return home at this time and will need SNF. Inquired the prognosis for pt. Encouraged dtr to inquire to ortho dr and attend the f/u appt with pt for any information. Emailed dtr f/u appt, SNF list, and recap of insurance information. Dtr very appreciative. Will continue to follow. Original Note: Social Work IDT met with patient and two sisters via conference call for care plan meeting. Discussed patient's progress in therapy and nursing. Pt's pain is impacting mobility and cannot use justino r/t back precautions. Nursing aware of pain. Pt is currently x2-3 for tx or using Saralift. Pt has new porter and is out of isolation 01/11. Explained [facility] insurance with NRD 01/07 and EDC 01/12. Explained and provided insurance care plan to pt. Insurance and IDT inquiring about alternative DC plan as pt lives at home alone and has 3 steps to enter. Sisters stated we will figure it out. Encouraged for sisters and pt to discuss and have decision by end of the week as insurance update is 01/07 and it would be beneficial to figure out the plan prior to that. Explained options about SNF or nonskilled HHC. If SNF, encouraged in network facility for Part B therapy but room and board would be private pay and so would nonskilled HHC. Pt states she cannot pay privately. Provided Medicaid application for SNF stay. Provided SNF list that provides include quality and resource data that is consistent with the pt's preferred geographic region, medical needs and insurance networks. Explained Medicare.gov is a great resource to research facilities. Pt expressed understanding. SW to continue to follow. Hafsa Denny, FABI VALDEZW
[2021-01-02] MEDS: Tamsulosin HCl 0.4 MG Capsule PO (17:35)
[2021-01-02] MEDS: Glimepiride 2 MG Tablet PO (17:35)
--- NOTE | 2021-01-02 19:02 | NURSING ---
Addendum entered by Maureen Morris 01/03/21 08:15: Pt refused Marinol doesn't feel that she needs it at this time. Dr. Hugo lanzaed to D/C. Original Note: Marinol ordered per social media campaign manager request, pt has a card for medical marijauna use at home d/t anxiety.
[2021-01-02 21:00] VITALS: PULSE 78; RESP 16; O2SAT 95
[2021-01-02 21:11] LABS: Bedside Glucose 248 mg/dL (70-110)
[2021-01-03 05:00] VITALS: BP 102/59; PULSE 100; RESP 16; TEMP 36.9; O2SAT 94
[2021-01-03] MEDS: Thyroid 60 MG Tablet 120 MG PO (05:45)
[2021-01-03] MEDS: Menthol/Lanolin/Calamine/Znox 113 GM Tube 1 APPLIC TOPICAL ×2 (05:48→17:35)
[2021-01-03] MEDS: Enoxaparin 40 MG/0.4 ML Syringe SC (05:54)
[2021-01-03 05:56] VITALS: PULSE 100
[2021-01-03 05:56] LABS: Bedside Glucose 106 mg/dL (70-110)
[2021-01-03] MEDS: Gabapentin 300 MG Capsule PO ×3 (05:56→21:18)
[2021-01-03] MEDS: Nystatin Powder 15gm Bottle 1 APPLIC TOPICAL ×2 (05:56→17:38)
[2021-01-03] MEDS: Metoprolol(XL)Succ 25 MG Tablet PO (05:56)
[2021-01-03 05:57] VITALS: BP 108/62
[2021-01-03] MEDS: Glucerna Shake 120 ML LIQUID PO ×3 (08:06→17:34)
--- NOTE | 2021-01-03 08:40 | NURSING ---
Pt refusing to take Marinol stated she did not need to take that. Updated Dr. Hugo lanza to Discontinue.
[2021-01-03] MEDS: cycloBENZAPRine HCl 10 MG Tablet PO ×2 (09:47→21:17)
[2021-01-03] MEDS: Tuberculin,Purif.prot.deriv. 50 TU/ML Vial 5 ML ID (10:49)
[2021-01-03] MEDS: Acetaminophen 500 MG Tablet 1000 MG PO ×2 (11:39→22:38)
[2021-01-03] MEDS: oxyCODONE 5 MG Tablet 10 MG PO ×2 (12:50→19:46)
--- NOTE | 2021-01-03 13:54 | CASEMGMT ---
Social Work Received confirmation pt does have Medicaid and can DC to SNF if needed. Notified pt. Hafsa Denny, ASSEMBLY LINE DRIVER PEST CONTROL SERVICE REPRESENTATIVE
--- NOTE | 2021-01-03 14:20 | MDS.RN ---
Completed pain interview for shweta 01/04/21
[2021-01-03 15:15] VITALS: BP 116/63; PULSE 92; RESP 16; TEMP 36.4; O2SAT 95
[2021-01-03 15:29] VITALS: PULSE 92; RESP 16; O2SAT 95
[2021-01-03] MEDS: Glimepiride 2 MG Tablet PO (17:35)
[2021-01-03] MEDS: Tamsulosin HCl 0.4 MG Capsule PO (17:35)
[2021-01-03] MEDS: Senna/Docusate Sodium 1 Tablet 2 TABLET PO (17:35)
[2021-01-03 21:30] LABS: Bedside Glucose 198 mg/dL (70-110)
[2021-01-04 04:01] VITALS: BP 107/58; RESP 16; TEMP 36.4; O2SAT 94
[2021-01-04] MEDS: oxyCODONE 5 MG Tablet 10 MG PO ×4 (04:03→22:01)
[2021-01-04 06:17] VITALS: BP 132/55; PULSE 74
[2021-01-04] MEDS: Enoxaparin 40 MG/0.4 ML Syringe SC (06:18)
[2021-01-04] MEDS: Senna/Docusate Sodium 1 Tablet 2 TABLET PO ×2 (06:19→17:24)
[2021-01-04] MEDS: Gabapentin 300 MG Capsule PO ×2 (06:19→13:00)
[2021-01-04] MEDS: Thyroid 60 MG Tablet 120 MG PO (06:19)
[2021-01-04] MEDS: Nystatin Powder 15gm Bottle 1 APPLIC TOPICAL ×2 (06:20→17:32)
[2021-01-04] MEDS: Menthol/Lanolin/Calamine/Znox 113 GM Tube 1 APPLIC TOPICAL ×2 (06:20→17:31)
[2021-01-04 06:22] VITALS: PULSE 74
[2021-01-04] MEDS: Metoprolol(XL)Succ 25 MG Tablet PO (06:22)
[2021-01-04 06:46] LABS: Bedside Glucose 130 mg/dL (70-110)
[2021-01-04] MEDS: Glucerna Shake 120 ML LIQUID PO ×3 (08:22→17:29)
[2021-01-04] MEDS: cycloBENZAPRine HCl 10 MG Tablet PO ×2 (12:01→20:20)
[2021-01-04] MEDS: Acetaminophen 500 MG Tablet 1000 MG PO (13:02)
--- NOTE | 2021-01-04 13:56 | NURSING ---
VERIFIED WITH DR CHATMAN THAT HE HAD READ MRI RESULTS FROM 01/02. HE STATED HE WAS AWARE OF RESULTS AND HAD SPOKEN TO R' REGARDING RESULTS.
[2021-01-04 14:03] VITALS: BP 126/70; PULSE 87; RESP 18; TEMP 36.3; O2SAT 94
--- NOTE | 2021-01-04 15:59 | PCA ---
patient refused to be turned and repositioned at this time. filled ice water and emptied porter. denies further needs at this time
--- NOTE | 2021-01-04 16:06 | CASEMGMT ---
Social Work SW spoke with both pt daughter Zoey and with pt regarding discharge plan. Both are understanding that pt cannot return home at time of discharge as care needs are greater than family can provide. First choice of SNF is [facility], second choice is [facility] and third choice is [facility]. SW left message with Altagracia at [facility] and sent referral to determine if they can accept pt once she is discharged. YAQUELIN will await determination. JARETH Alvarez
[2021-01-04 16:45] LABS: Bedside Glucose 172 mg/dL (70-110)
[2021-01-04] MEDS: Tamsulosin HCl 0.4 MG Capsule PO (17:25)
[2021-01-04] MEDS: Glimepiride 2 MG Tablet PO (17:25)
[2021-01-04] MEDS: Polyethylene Glycol 3350 17 GM PACKET PO (17:26)
[2021-01-04] MEDS: traMADol 50 MG Tablet PO (20:19)
[2021-01-04 20:40] VITALS: RESP 16
[2021-01-04 21:55] LABS: Bedside Glucose 155 mg/dL (70-110)
[2021-01-05] MEDS: oxyCODONE 5 MG Tablet 10 MG PO ×2 (02:38→06:47)
[2021-01-05 03:47] VITALS: BP 146/82; PULSE 83; RESP 18; TEMP 36.7; O2SAT 96
[2021-01-05] MEDS: Enoxaparin 40 MG/0.4 ML Syringe SC (05:31)
[2021-01-05] MEDS: traMADol 50 MG Tablet PO (05:31)
[2021-01-05] MEDS: cycloBENZAPRine HCl 10 MG Tablet PO ×3 (05:31→22:40)
[2021-01-05 05:32] VITALS: BP 146/82; PULSE 83
[2021-01-05] MEDS: Thyroid 60 MG Tablet 240 MG PO (05:32)
[2021-01-05] MEDS: Metoprolol(XL)Succ 25 MG Tablet PO (05:32)
[2021-01-05] MEDS: Senna/Docusate Sodium 1 Tablet 2 TABLET PO ×2 (05:33→17:44)
[2021-01-05] MEDS: Menthol/Lanolin/Calamine/Znox 113 GM Tube 1 APPLIC TOPICAL ×2 (05:33→16:22)
[2021-01-05] MEDS: Nystatin Powder 15gm Bottle 1 APPLIC TOPICAL ×2 (05:33→16:22)
[2021-01-05 06:45] LABS: Bedside Glucose 152 mg/dL (70-110)
[2021-01-05 07:43] LABS: Absolute Lymphocyte Count 1.64 X10^3/uL (0.83-4.51); Absolute Neutrophil Count 5.8 X10^3/uL (2.0-7.7); Basophil# 0.04 X10^3/uL; Basophil% 0.5 % (0-1); Eosinophil# 0.36 X10^3/uL; Eosinophils% 4.3 % (0-5); Hematocrit 37.3 % (37-47); Hemoglobin 12.1 g/dL (12.0-15.0); Lymphocyte # 1.64 X10^3/ul (4.0); Lymphocyte % 19.4 % (19-41); Mean Corp Hgb Conc 32.4 g/dL (32-36); Mean Corpuscular Hgb 30.3 pg (27.0-32.0); Mean Corpuscular Volume 93.3 fL (81-99); Mean Platelet Vol. 8.8 fl (6.2-12.0); Monocyte# 0.61 X10^3/uL; Monocyte% 7.2 % (0-10); NRBC Flagged by Analyzer 0 % (0-5); Neutrophil # 5.75 X10^3/uL (2.7-7.7); Neutrophil % 67.9 % (47-70); Platelet Count 386 K/mm3 (150-450); RBC Distribution Width CV 12.5 % (11.6-14.6); RBC Distribution Width SD 43.3 fl (35.1-43.9); White Blood Count 8.5 K/mm3 (4.4-11.0)
[2021-01-05 08:00] LABS: Anion Gap 5 (5-15); BUN 7 mg/dL (7-18); BUN/Creat Ratio 16.6 RATIO (10-20); Calcium,Total 9.2 mg/dL (8.5-10.1); Chloride 97 mmol/L (98-107); Creatinine, Serum 0.42 mg/dL (0.55-1.02); EST Glomerular Filtration Rate 160 mL/min (>60); Est Glom Filt Rate - Afr Amer 194 mL/min (>60); Estimated Creatinine Clearance 95.92 ml/min; Glucose 150 mg/dL (74-106); Potassium 3.9 mmol/L (3.5-5.1); Sodium Level 131 mmol/L (136-145)
--- NOTE | 2021-01-05 08:20 | NURSING ---
Notified Dr. Arias that pt c/o uncontrolled pain and current medication not helping. Received order to increase Oxycodone to 20mg q4hr PRN and consult Palliative Care. Order repeated back will add order.
[2021-01-05] MEDS: oxyCODONE 5 MG Tablet 20 MG PO ×3 (08:51→21:46)
[2021-01-05] MEDS: Glucerna Shake 120 ML LIQUID PO ×3 (08:54→17:42)
--- NOTE | 2021-01-05 09:10 | NURSING ---
Contacted family and provided update.
[2021-01-05] MEDS: Acetaminophen 500 MG Tablet 1000 MG PO (13:48)
[2021-01-05 13:52] VITALS: BP 137/75; PULSE 85; RESP 18; TEMP 35.9; O2SAT 94
[2021-01-05] MEDS: Polyethylene Glycol 3350 17 GM PACKET PO (16:27)
--- NOTE | 2021-01-05 16:34 | NURSING ---
Has been sleepy most of the day and able to rest. Complains of pain with any movement. reports feeling a little dizzy and states she has not ate much all day. Encouraged her to eat something at this time and sits up in bed. Takes a sprite and a chicken broth to help with her low sodium. Reports feeling like she has to poop. This RN just changed her from a small BM and she has had small frequent BM's throughout today. Takes her Miralax at this time. Does not move her legs well at this time and questions why her Neurontin was dc'd. Will continue to monitor.
[2021-01-05] MEDS: Tamsulosin HCl 0.4 MG Capsule PO (17:44)
[2021-01-05] MEDS: Glimepiride 2 MG Tablet PO (17:44)
[2021-01-05 21:30] LABS: Bedside Glucose 166 mg/dL (70-110)
[2021-01-06 04:16] VITALS: BP 104/70; PULSE 84; RESP 16; TEMP 36.6; O2SAT 93
[2021-01-06] MEDS: oxyCODONE 5 MG Tablet 20 MG PO ×4 (04:21→20:18)
--- NOTE | 2021-01-06 04:27 | NURSING ---
BLE repositioned for comfort. Pillow rolled and placed under ankles to float heels. House lotion applied to feet and BLE. LEs remain cold, temp equal. B/L foot drop and rt foot slightly internally rotated. Medicated w/ Oxycodone for pain. Documentation on NOV. Vital signs obtained. Refused remainder of am meds at this time due to concerns w/ possible upset stomach. Water vpitcher refilled w/ little ice. Call light w/ in reach.
[2021-01-06 05:19] VITALS: BP 124/84; PULSE 101
[2021-01-06] MEDS: cycloBENZAPRine HCl 10 MG Tablet PO ×2 (05:23→13:19)
[2021-01-06] MEDS: Acetaminophen 500 MG Tablet 1000 MG PO (05:24)
[2021-01-06] MEDS: Thyroid 60 MG Tablet 120 MG PO (05:24)
[2021-01-06 05:25] VITALS: BP 124/84; PULSE 101
[2021-01-06] MEDS: Senna/Docusate Sodium 1 Tablet 2 TABLET PO ×2 (05:25→17:07)
[2021-01-06] MEDS: Metoprolol(XL)Succ 25 MG Tablet PO (05:25)
[2021-01-06] MEDS: Enoxaparin 40 MG/0.4 ML Syringe SC (05:25)
[2021-01-06] MEDS: Nystatin Powder 15gm Bottle 1 APPLIC TOPICAL ×2 (05:27→17:11)
[2021-01-06] MEDS: Menthol/Lanolin/Calamine/Znox 113 GM Tube 1 APPLIC TOPICAL ×2 (05:27→17:10)
[2021-01-06 06:30] LABS: Bedside Glucose 174 mg/dL (70-110)
[2021-01-06] MEDS: Glucerna Shake 120 ML LIQUID PO ×3 (08:44→17:04)
[2021-01-06 08:51] LABS: Bedside Glucose 198 mg/dL (70-110)
--- NOTE | 2021-01-06 11:31 | NURSING ---
Notified Dr. Arias of pt requesting Neurontin to be re-instated that was d/c'd and decrease Lantus to 10 units @ HS. Received order for Neurontin 300mg TID and Lantus 10 units @ HS. Order repeated back, will add order.
[2021-01-06] MEDS: Gabapentin 300 MG Capsule PO ×2 (13:19→17:15)
[2021-01-06 13:26] VITALS: BP 120/76; PULSE 86; RESP 18; TEMP 36.4; O2SAT 96
[2021-01-06] MEDS: Tamsulosin HCl 0.4 MG Capsule PO (17:04)
[2021-01-06] MEDS: Glimepiride 2 MG Tablet PO (17:05)
[2021-01-06 21:31] LABS: Bedside Glucose 187 mg/dL (70-110)
[2021-01-07] MEDS: oxyCODONE 5 MG Tablet 20 MG PO ×4 (04:16→21:43)
[2021-01-07] MEDS: Acetaminophen 500 MG Tablet 1000 MG PO ×3 (04:17→16:29)
--- NOTE | 2021-01-07 04:34 | NURSING ---
Pt medicated for pain to legs at 10/10 w/ Oxy IR 20 mg and Tylenol [address] order- refer to MAR. Pt would also like muscle relaxer and thi nurse informs pt plan to wait approx 45-60 minutes to assess the effectiveness of medications just administered. Educated in regard to respiratory depression with all medications administered at the same time. Verbalizes frustration this nurse di not medicate pt through the night. informed pt she slept through the night and staff do not wake patients to administer PRN pain medication. LLE positioned for comfort x3, w/ last position knee flexed, blanket rolled up and placed behind knee, one pillow placed under ankle, and a second pillow placed to lateral lower leg. Call light w/ in reach.
[2021-01-07 05:35] VITALS: BP 151/70; PULSE 93; RESP 16; TEMP 36.6; O2SAT 91
[2021-01-07 05:41] VITALS: BP 151/70; PULSE 93
[2021-01-07] MEDS: cycloBENZAPRine HCl 10 MG Tablet PO (05:41)
[2021-01-07] MEDS: Senna/Docusate Sodium 1 Tablet 2 TABLET PO ×2 (05:41→18:22)
[2021-01-07] MEDS: Metoprolol(XL)Succ 25 MG Tablet PO (05:41)
[2021-01-07] MEDS: Enoxaparin 40 MG/0.4 ML Syringe SC (05:42)
[2021-01-07] MEDS: Menthol/Lanolin/Calamine/Znox 113 GM Tube 1 APPLIC TOPICAL ×2 (05:42→18:21)
[2021-01-07] MEDS: Nystatin Powder 15gm Bottle 1 APPLIC TOPICAL ×2 (05:42→18:21)
[2021-01-07] MEDS: Thyroid 60 MG Tablet 120 MG PO (05:42)
[2021-01-07 06:15] LABS: Anion Gap 5 (5-15); BUN 9 mg/dL (7-18); BUN/Creat Ratio 18.4 RATIO (10-20); Calcium,Total 9.2 mg/dL (8.5-10.1); Chloride 95 mmol/L (98-107); Creatinine, Serum 0.49 mg/dL (0.55-1.02); EST Glomerular Filtration Rate 135 mL/min (>60); Est Glom Filt Rate - Afr Amer 164 mL/min (>60); Estimated Creatinine Clearance 82.22 ml/min; Glucose 172 mg/dL (74-106); Potassium 4.1 mmol/L (3.5-5.1); Sodium Level 131 mmol/L (136-145)
[2021-01-07 06:25] LABS: Bedside Glucose 174 mg/dL (70-110)
[2021-01-07] MEDS: Glucerna Shake 120 ML LIQUID PO ×3 (08:34→16:34)
[2021-01-07] MEDS: Gabapentin 300 MG Capsule PO ×3 (08:34→18:22)
[2021-01-07 12:02] VITALS: PULSE 94; RESP 18; O2SAT 97
[2021-01-07 14:21] VITALS: BP 131/80; PULSE 94; RESP 18; TEMP 36.4; O2SAT 97
[2021-01-07] MEDS: Tamsulosin HCl 0.4 MG Capsule PO (16:34)
[2021-01-07] MEDS: Glimepiride 2 MG Tablet PO (16:34)
[2021-01-07] MEDS: Polyethylene Glycol 3350 17 GM PACKET PO (18:22)
[2021-01-07 21:26] LABS: Bedside Glucose 192 mg/dL (70-110)
[2021-01-08 04:19] VITALS: BP 107/68; PULSE 82; RESP 16; TEMP 36.3; O2SAT 95
[2021-01-08] MEDS: oxyCODONE 5 MG Tablet 20 MG PO ×4 (04:21→21:53)
[2021-01-08] MEDS: Acetaminophen 500 MG Tablet 1000 MG PO ×3 (04:21→21:54)
[2021-01-08] MEDS: Senna/Docusate Sodium 1 Tablet 2 TABLET PO ×2 (04:22→17:00)
[2021-01-08 04:23] VITALS: PULSE 82
[2021-01-08] MEDS: Menthol/Lanolin/Calamine/Znox 113 GM Tube 1 APPLIC TOPICAL ×2 (04:23→17:03)
[2021-01-08] MEDS: Metoprolol(XL)Succ 25 MG Tablet PO (04:23)
[2021-01-08] MEDS: Thyroid 60 MG Tablet 120 MG PO (04:23)
[2021-01-08] MEDS: Enoxaparin 40 MG/0.4 ML Syringe SC (04:23)
[2021-01-08] MEDS: Nystatin Powder 15gm Bottle 1 APPLIC TOPICAL ×2 (04:24→17:03)
[2021-01-08 06:26] LABS: Bedside Glucose 142 mg/dL (70-110)
[2021-01-08] MEDS: Gabapentin 300 MG Capsule PO ×3 (08:21→17:00)
[2021-01-08] MEDS: Glucerna Shake 120 ML LIQUID PO ×2 (08:21→16:59)
--- NOTE | 2021-01-08 10:16 | NURSING ---
Addendum entered by Deisy Dye 01/08/21 10:21: MRI report and disc sent with resident to appointment. 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
--- NOTE | 2021-01-08 12:56 | MDS.RN ---
Information for the mds was obtained from review of the clinical record, interview of resident, staff, and direct observation of resident's care.
--- NOTE | 2021-01-08 13:32 | NURSING ---
Back from appointment. Daughter took her packet of orders home. Dr Oseguera office called and they said they will fax or call us orders from the office visit.
[2021-01-08 13:59] VITALS: BP 103/62; PULSE 94; RESP 20; TEMP 36; O2SAT 92
--- NOTE | 2021-01-08 16:34 | CASEMGMT ---
Social Work Followed up with [facility] - they can accept pt. Explained NRD 01/09 with EDC 01/12. Will continue to follow. Hafsa Denny, UNIVERSITY MANAGER CLIPPER OPERATOR
[2021-01-08] MEDS: Glimepiride 2 MG Tablet PO (17:00)
[2021-01-08] MEDS: Tamsulosin HCl 0.4 MG Capsule PO (17:00)
[2021-01-08] MEDS: Polyethylene Glycol 3350 17 GM PACKET PO (17:00)
[2021-01-08 21:55] LABS: Bedside Glucose 160 mg/dL (70-110)
[2021-01-08 22:00] VITALS: RESP 16; O2SAT 95
[2021-01-08] MEDS: cycloBENZAPRine HCl 10 MG Tablet PO (23:37)
[2021-01-09 05:00] VITALS: BP 118/69; PULSE 87; RESP 16; TEMP 36.5; O2SAT 93
[2021-01-09] MEDS: oxyCODONE 5 MG Tablet 20 MG PO ×3 (05:19→19:42)
[2021-01-09] MEDS: Acetaminophen 500 MG Tablet 1000 MG PO ×2 (05:19→17:00)
[2021-01-09] MEDS: Thyroid 60 MG Tablet 240 MG PO (05:20)
[2021-01-09 05:21] VITALS: PULSE 87
[2021-01-09] MEDS: Metoprolol(XL)Succ 25 MG Tablet PO (05:21)
[2021-01-09] MEDS: Menthol/Lanolin/Calamine/Znox 113 GM Tube 1 APPLIC TOPICAL ×2 (05:22→16:56)
[2021-01-09] MEDS: Senna/Docusate Sodium 1 Tablet 2 TABLET PO ×2 (05:22→16:55)
[2021-01-09] MEDS: Enoxaparin 40 MG/0.4 ML Syringe SC (05:22)
[2021-01-09] MEDS: Polyethylene Glycol 3350 17 GM PACKET PO ×2 (05:22→16:55)
[2021-01-09] MEDS: Nystatin Powder 15gm Bottle 1 APPLIC TOPICAL ×2 (05:22→16:56)
[2021-01-09 06:21] LABS: Bedside Glucose 110 mg/dL (70-110)
[2021-01-09] MEDS: Gabapentin 300 MG Capsule PO ×2 (08:23→11:48)
[2021-01-09] MEDS: Glucerna Shake 120 ML LIQUID PO ×3 (08:23→16:54)
--- NOTE | 2021-01-09 13:35 | NURSING ---
CALLED DR OTOOLE'S OFFICE TO CLARIFY ORDERS FROM [facility]. SPOKE WITH NAKUL WHO STATED NEURONTIN WAS INCREASED FROM 300MG TID TO 600MG TID. NOTIFIED DR ALBRECHT WHO STATED TO INCREASE TO 400MG TID. WILL UPDATE R'. ALSO, NEXT APPT IS January AT 1015.
[2021-01-09 13:54] VITALS: BP 119/70; PULSE 85; RESP 20; TEMP 36.5; O2SAT 94
--- NOTE | 2021-01-09 14:38 | NURSING ---
palliative notified of consult, requested fax of H&P & demographics page for review. faxed.
[2021-01-09] MEDS: Glimepiride 2 MG Tablet PO (16:55)
[2021-01-09] MEDS: Gabapentin 400 MG Capsule PO (16:55)
[2021-01-09] MEDS: Tamsulosin HCl 0.4 MG Capsule PO (16:55)
[2021-01-09] MEDS: cycloBENZAPRine HCl 10 MG Tablet PO (20:48)
[2021-01-09 21:46] LABS: Bedside Glucose 195 mg/dL (70-110)
[2021-01-10 05:27] VITALS: BP 115/60; PULSE 87; RESP 16; TEMP 36.5; O2SAT 94
[2021-01-10] MEDS: Senna/Docusate Sodium 1 Tablet 2 TABLET PO ×2 (05:33→22:30)
[2021-01-10] MEDS: Thyroid 60 MG Tablet 120 MG PO (05:33)
[2021-01-10 05:34] VITALS: BP 115/60; PULSE 87
[2021-01-10] MEDS: Polyethylene Glycol 3350 17 GM PACKET PO ×2 (05:34→17:38)
[2021-01-10] MEDS: Metoprolol(XL)Succ 25 MG Tablet PO (05:34)
[2021-01-10] MEDS: Enoxaparin 40 MG/0.4 ML Syringe SC (05:34)
[2021-01-10] MEDS: Menthol/Lanolin/Calamine/Znox 113 GM Tube 1 APPLIC TOPICAL ×2 (05:36→17:41)
[2021-01-10] MEDS: oxyCODONE 5 MG Tablet 20 MG PO ×4 (05:39→22:28)
[2021-01-10] MEDS: Glucerna Shake 120 ML LIQUID PO ×3 (05:39→17:38)
[2021-01-10] MEDS: Nystatin Powder 15gm Bottle 1 APPLIC TOPICAL ×2 (05:45→17:41)
[2021-01-10 06:36] LABS: Bedside Glucose 170 mg/dL (70-110)
[2021-01-10] MEDS: cycloBENZAPRine HCl 10 MG Tablet PO ×2 (07:05→17:37)
[2021-01-10] MEDS: Acetaminophen 500 MG Tablet 1000 MG PO ×2 (07:05→22:31)
[2021-01-10] MEDS: Gabapentin 400 MG Capsule PO ×3 (07:05→17:38)
[2021-01-10] MEDS: Tuberculin,Purif.prot.deriv. 50 TU/ML Vial 5 ML ID (11:01)
--- NOTE | 2021-01-10 12:34 | CASEMGMT ---
Social Work Insurance issued LCD 01/12, DC 01/13. Spoke with pt. Explained appeal rights. Pt agreeable to DC. Pt remains agreeable to [facility]. Notified [facility] of DC date. Completed PASRR and prepared paperwork to submit for LOC. Pt's Medicaid number is [id number]. Scheduled cot transport through [facility] for 01/13 at 1100. Plan: DC to [facility] nonskilled with part B therapies 01/13 FABI SwansonW
--- NOTE | 2021-01-10 14:09 | PCM.PN.BLA ---
Progress Note I was notified by nursing that the pt requested to see me about her pain medications. She is ordered Oxycodone 20 mg Q 4H PRN and she is also on scheduled Neurontin 400 mg 3 times daily tramadol which she has not taken since 01/05/2021. she had a purewick but it kept getting contaminated with stool and a Doll was inserted. Nursing also told me that she retains urine. She is S/P L1-L2 discectomy and fusion for severe Lumbar canal stenosis due to disc protrusion. She is requesting that I schedule Oxycodone at HS since nursing sometimes not wake her up to give the pain medication at HS and then she awakens in severe pain in the middle of the night. While in the room I noticed the Doll and the urine in the bag and the tube is very cloudy with a lot of particulate. I discussed with her that we do not like to leave catheters in for convenience because there is increased risk for infection and if she gets and infection the hardware in the back could get infected. If she does not need it then I recommended we discontinue the catheter and then check PVR's.....if the PVR is > 400 will have to re-insert. She was in agreement. Impressions 1. debility due to severe lumbar canal stenosis at L1-L2 due to disc protrusion. She is S/P discectomy and fusion. 2. radiculopathy and myelopathy of the LE's. I reviewed the PT notes and she is improving since admission to TCU 3. suspected CAUTI UA and urine culture DC the Doll Check PVR's post removal and re-insert only if > 400 cc's retention. Inpatient E&M: [id number] Subs Hosp L2
--- NOTE | 2021-01-10 14:30 | MDS.RN ---
Pain interview for shweta 01/13/21
--- NOTE | 2021-01-10 15:31 | PCM.CONS.P ---
Problem List (1) Intractable back pain Status: Acute (2) Debility Status: Acute (3) Lumbar disc herniation with radiculopathy Status: Acute (4) Lumbar spinal stenosis Status: Acute (5) Neuropathic pain Status: Acute (6) Tobacco abuse Status: Chronic (7) Muscle spasm Status: Acute (8) Ulcerative colitis Status: Acute (9) Celiac disease Status: Chronic (10) Irritable bowel syndrome Status: Chronic (11) Cannabis abuse Status: Chronic (12) Hypothyroidism Status: Chronic (13) Vitamin D deficiency Status: Chronic (14) Hypertension Status: Chronic Qualifiers: Hypertension type: unspecified Qualified Code(s): I10 - Essential (primary) hypertension (15) Diabetes mellitus Status: Chronic Qualifiers: Diabetes mellitus type: type 2 Diabetes mellitus [facility] insulin use: without terminal superintendent use Diabetes mellitus complication status: with neurologic complications Diabetes mellitus complication detail: with unspecified neuropathy Qualified Code(s): E11.40 - Type 2 diabetes mellitus with diabetic neuropathy, unspecified History of Present Illness Date of Consult: 01/10/21 Reason for Consult: back pain, debility Requesting physician: [] Primary care physician: Dr. Preet Farrar, DO - History of Present Illness The patient is a 65 year old F with PMH as below, presented to the ED 12/19/2019 with complaints of intractable back pain. She had fallen about a month prior and has had progressive back pain ever since. She got to the point she can even bear weight. Complained of radiation down bilateral lower extremities. She was put on a Medrol dose pack which was ineffective. CT of the lumbar spine showed multilevel degenerative changes with multilevel bilateral neural foraminal and central spinal stenosis. She was admitted for further evaluation and management of her intractable back pain. MRI revealed a large disc herniation at L1-L2 with a large disc herniation and compression of all nerve roots. She was started on IV morphine, p.o. oxycodone, and Tylenol for the pain. Surgical evaluation determined the patient needed to be transferred to tertiary care center in anticipation of cardiothoracic surgery in order to pull the diaphragm down to access L1-L2 disc protrusion. She was transferred to [facility] on 12/20/2020. Patient underwent spinal disc fusion with discectomy 12/21. From there, she was transferred to the transitional care unit 12/28 for further therapy. Patient lives home alone and has 3 steps to enter the home. During therapy, she was unable to utilize the Quyen lift due to back precautions. Her back pain has been significantly impacting her mobility and therapy. Apparently insurance has cut her and she has an estimated discharge date of 01/12/2021. It was not recommended she discharged home due to her poor mobility. According to nursing, pain has been uncontrolled. Her oxycodone was increased to 20 mg every 4 hours as needed and palliative care was consulted. Patient has some constipation issues and has been having small frequent BMs throughout the day while taking MiraLAX. Her Neurontin was discontinued, but patient requested it be ordered again, currently at 300 mg 3 times daily. It has been increased to 400 mg TID. She is also getting Tylenol 1 g as needed. Patient requested to see attending 01/10 about her pain medications. Patient has a pure wick but it keeps getting contaminated with stool, so a Porter catheter was inserted. She also has a history of urinary retention. Patient was requesting physician scheduled oxycodone at bedtime as she wakens up in the middle of the night in excruciating pain. Attending also recommended to discontinue the catheter and check PVRs to avoid catheter associated infection. Urinalysis will be sent. Plan is to discharge to [facility] 01/12. Her surgeon is Dr. Martinez. Lesa were removed by surgeon this week. After her surgery, she was unable to move her feet, now she is able to wiggle her toes. She is flexing her ankle. She is not walking yet, however was able to stand today and bear weight with assistance of a walker at the bedside. Patient is requesting she be turned and repositioned more frequently. Nursing reports that she has refused on multiple occasions. Patient complaining of rectal spasms. Most of her pain is in her buttocks, down the back of her legs, and anteriorly down thighs. She is getting muscle spasms frequently, at least every hour. They last a few seconds. Also feels like there is a band around her ankle. Numbness and tingling to the feet, they feel cool to her, warm to touch. Denies any history of substance abuse, however on her chart there is use of marijuana. Patient is a 1 pack-a-day smoker x35 years, she quit for approximately 10 years. Denies any issues with depression or anxiety. She has 2 sisters who assist her when needed. Also has 3 children, all live in the area and are supportive. Patient has had a lot of constipation since being on the pain medication. They were giving multiple medications, including but not limited to Denise-Colace, Dulcolax, enema, MiraLAX, all with no relief. She had a suppository and had several bowel movements for half a day. She now feels constipated again, last BM was 01/06/2021. No abdominal pain. Rating her buttock/leg pain 8 out of 10 currently. Pain at its worst is 10+. Lowest level it is been is a 7 out of 10. Her goal is to have a pain level of 5 or less. She denies any bowel or bladder incontinence. Denies any previous use of narcotics with the exception of postsurgical procedures. No suicidal ideations or thoughts. No history of suicide. An [facility]AR[facility] report patient had cannabis Gummies 11/12/2019, 01/16/2020 and 03/26/2020, otherwise no controlled substances other than the new prescription for gabapentin 600 mg when she left the hospital from her back surgery. Copy placed on chart. Patient Problems: Chronic Problems Diabetes mellitus (Chronic) Vitamin D deficiency (Chronic) Hypertension (Chronic) Hypothyroidism (Chronic) Tobacco abuse (Chronic) Celiac disease (Chronic) Irritable bowel syndrome (Chronic) Cannabis abuse (Chronic) Surgical History: cholecystectomy, herniorrhaphy, tonsillectomy, - - L1-L2 posterior spinal disc fusion with discectomy. Psychiatric History: No pertinent psych hx Home Medications: Ambulatory Orders Medication Instructions Recorded Acetaminophen [Tylenol Extra 1,000 mg PO Q4H PRN PRN 12/18/20 Strength] Ergocalciferol (Vitamin D2) 50,000 unit PO MOFR 12/18/20 [Vitamin D2] Glimepiride 2 mg PO DINNER 12/18/20 Metoprolol Succinate 25 mg PO DAILY 12/18/20 Thyroid,Pork [Rotogravure Press Operator Thyroid 120] 240 mg PO WESA 12/18/20 Thyroid,Pork [Rotogravure Press Operator Thyroid] 120 tablet PO DAILY 12/18/20 Gabapentin 300 mg PO TID 12/28/20 cycloBENZAPRine HCl [Flexeril] 10 mg PO TID PRN PRN 12/28/20 Allergies aspirin Allergy (Verified 03/23/21 15:33) mouth swelling gluten Allergy (Verified 12/20/20 06:44) Abd cramps/diarrhea ibuprofen Allergy (Verified 12/18/20 15:33) mouth swelling Sulfa (Sulfonamide Antibiotics) Allergy (Verified 12/18/20 15:33) pt can't remember Maternal History Items: High Cholesterol, Heart Disease, - - Depression, mental illness. Paternal History Items: Diabetes, High Cholesterol, Heart Disease - s/p GA. - Social History Lives: With Family Smoking Status: Current every day smoker Tobacco Use: Cigarettes Alcohol: None Drugs: Marijuana - Daily. Review of Systems Constitutional: Reports: Weakness, Fatigue. Denies: Chills, Fever, Weight Change Eyes: Denies: Vision Change HEENT: Denies: Difficulty Swallowing, Head Aches, Sinus Congestion, Sinus Drainage, Sore Throat Cardiovascular: Reports: Edema. Denies: Chest Pain, Orthopnea, Palpitations Respiratory: Denies: Cough, Shortness of Breath, Shortness of breath at rest, Sputum production, Wheezing Gastrointestinal: Reports: Constipation. Denies: Abdominal Pain, Diarrhea, Nausea, Vomiting Genitourinary: Reports: - - porter cath, has large amt of sediment in tubing. Denies: Dysuria Musculoskeletal: Reports: Joint Pain, - - bilat buttocks/hips, ant/post thigh pain. Denies: Joint Tenderness Skin: Reports: - - incision, lesa just removed to back. Denies: Rash, Wounds Neurological: Reports: Tingling, - - n/t to bilat feet.. Denies: Focal weakness, Tremor Psychiatric: Denies: Anxiety, Depression, Homicidal Ideations, Suicidal Ideations Hematologic/ Lymphatic: Denies: Anemia, Easy Bruising, Easy Bleeding Physical Exam General: Alert, Oriented x3, Cooperative HEENT: Atraumatic, Normocephalic Oral: Moist Mucosa Neck: Supple, Trachea Midline Lungs: Clear to auscultation Cardiovascular: Regular rate, Regular Rhythm, Normal S1, Normal S2, No murmurs Abdomen: Bowel Sounds Present, Soft, Non Tender Extremities: Capillary Refill Less than 3 Seconds, Edema Skin: No rashes, No breakdown Musculoskeletal: No Tenderness to Palpation of Joints or Extremities, - - mm spasms legs Neurological: - - LE decreased strength, able to move all extremities Psych/Mental Status: Appropriate, Flat Affect Objective: Vital Signs Temp Pulse Resp BP Pulse Ox 97.7 F L 87 16 115/60 94 01/10/21 05:27 01/10/21 05:34 01/10/21 05:27 01/10/21 05:34 01/10/21 05:27 Oxygen Delivery Method Room Air Weight: 80.824 kg Body Mass Index (BMI) 35.2 Intake and Output for Last 24 Hours 01/08/21 01/09/21 01/10/21 23:59 23:59 23:59 Intake Total 480 / 480 720 / 720 Output Total 1600 / 1600 1100 / 1100 2099 / 2099 Balance -1120 / -1120 -380 / -380 -2099 / Assessment/Plan All Active Problems Lumbar radiculopathy (Acute) Intractable back pain (Acute) Ambulatory dysfunction (Acute) Debility (Acute) Lumbar disc herniation with radiculopathy (Acute) Lumbar spinal stenosis (Acute) Muscle spasm (Acute) Neuropathic pain (Acute) Ulcerative colitis (Acute) 65-year-old female with severe lumbar canal stenosis L1-L2 due to disc protrusion, s/p discectomy and fusion, palliative care consultation to help manage pain. 1. Back pain/severe lumbar canal stenosis L1-L2: Pain medications have been increased, now on gabapentin 400mg TID, oxycodone 20 mg every 4 hours as needed, and tramadol (not using). Scheduled dose of oxycodone 20 mg qhs was ordered today by attending. Recommend adding longer acting regimen, start morphine 15 mg twice daily. Keep the oxycodone as needed for now and we will see what her narcotic requirements are in the next 24 to 48 hours, maybe can increase gabapentin and decrease opioids. Also would increase her bowel regimen since she has significant constipation will increase Denise-Colace to 2 tabs 3 times daily. I will see her tomorrow. Nursing to round for pain assessment every 4 hours, okay to wake at night. Hopefully she will have better pain control and be able to participate in more therapy. Thank you for the opportunity to participate in this patient's care, please do not hesitate to contact [facility] with any further questions or concerns. Palliative direct line is [phone]. We will have CONCRETE FLOOR INSTALLER follow up approximately 3 days after discharge to [facility] and will discuss palliative services further at that time, as well as monitor and adjust pain medications. Greater than 50% of F2F visit dedicated to education and counseling of palliative care services, medications, comorbid conditions and potential assistance with management, and plan of care moving forward. Start time: 1522 End time: 1645
--- NOTE | 2021-01-10 15:45 | NURSING ---
Urine collected via porter catheter at 1528. Specimen sent to lab at this time.
[2021-01-10 15:53] LABS: Mucous, Urine 0 SEEN /hpf (<or=2+); Squamous Epithelial Cells - UA 0 SEEN /hpf (5-10)
[2021-01-10 16:00] VITALS: BP 148/87; PULSE 93; RESP 20; TEMP 36.6; O2SAT 94
[2021-01-10 16:25] LABS: Color, Urine Yellow (Yellow); Glucose, Dipstick Normal (Normal); Ketone-Dipstick 5 mg/dl (Negative); Leukocyte Esterase-Dipstick 500 /ul (Negative); Nitrite-Dipstick Positive (Negative); Occult Blood-Urine 250 /ul (Negative); Protein-Dipstick 100 mg/dl (Negative); Urine Bilirubin Dipstick Negative (Negative); Urine Clarity Cloudy (Clear); Urine Urobilinogen Normal (Normal)
[2021-01-10 17:06] LABS: Bacteria 4+ /hpf (None Seen); Red Blood Cells-Urine 25-50 SEEN /hpf (0-5); White Blood Cells >100 SEEN /hpf (0-5)
[2021-01-10] MEDS: Tamsulosin HCl 0.4 MG Capsule PO (17:37)
[2021-01-10] MEDS: Glimepiride 2 MG Tablet PO (17:37)
[2021-01-10] MEDS: Amox/Clavulanate 875 MG Tablet PO (20:04)
[2021-01-10 20:20] VITALS: BP 116/66; RESP 20; TEMP 36.8; O2SAT 95
--- NOTE | 2021-01-10 20:33 | NURSING ---
Patient complaining of 10/10 pain, restless, asking to be repositioned. Only med due at this time is tylenol and patient says that won't help. She is asking about morphine after conversation with palliative AMBULATORY SERVICES REPRESENTATIVE. Discussed with her that the MS contin was discontinued. Called and spoke with Dr. Gonzalez who states she doesn't want any change to orders at this time.
[2021-01-10 21:45] LABS: Bedside Glucose 162 mg/dL (70-110)
[2021-01-10 22:15] VITALS: PULSE 86; RESP 16; O2SAT 94
--- NOTE | 2021-01-10 23:40 | NURSING ---
Doll removed at 8pm, urine cloudy yellow, patient tolerated fine.
[2021-01-11] MEDS: oxyCODONE 5 MG Tablet 20 MG PO (02:55)
[2021-01-11 05:00] VITALS: BP 137/76; PULSE 87; RESP 14; TEMP 37.2; O2SAT 92
[2021-01-11] MEDS: Enoxaparin 40 MG/0.4 ML Syringe SC (06:46)
[2021-01-11] MEDS: Acetaminophen 500 MG Tablet 1000 MG PO ×3 (06:47→20:48)
[2021-01-11] MEDS: Senna/Docusate Sodium 1 Tablet 2 TABLET PO ×2 (06:48→14:02)
[2021-01-11 06:49] VITALS: PULSE 86
[2021-01-11] MEDS: Thyroid 60 MG Tablet 120 MG PO (06:49)
[2021-01-11] MEDS: Metoprolol(XL)Succ 25 MG Tablet PO (06:49)
[2021-01-11] MEDS: Nystatin Powder 15gm Bottle 1 APPLIC TOPICAL ×2 (06:49→16:33)
[2021-01-11] MEDS: Menthol/Lanolin/Calamine/Znox 113 GM Tube 1 APPLIC TOPICAL ×2 (06:53→16:32)
[2021-01-11 07:00] LABS: Bedside Glucose 151 mg/dL (70-110)
--- NOTE | 2021-01-11 07:34 | NURSING ---
Patient unable to void overnight since porter removed, has no urge to void. Bladder scan this morning shows 650cc. 16F 10cc porter placed using sterile technique. Patient tolerated well.
[2021-01-11] MEDS: Polyethylene Glycol 3350 17 GM PACKET PO (09:16)
[2021-01-11] MEDS: Gabapentin 400 MG Capsule PO ×5 (09:16→20:50)
[2021-01-11] MEDS: Glucerna Shake 120 ML LIQUID PO ×3 (09:19→16:32)
[2021-01-11] MEDS: Amox/Clavulanate 875 MG Tablet PO ×2 (09:26→16:30)
--- NOTE | 2021-01-11 10:33 | PN.PALL_ITS ---
Progress Note- Hospice Date: 01/11/21 Subjective: Lying in bed on her back, therapy in the room with her. Patient is somewhat tearful today, fear of the unknown. She knows the therapist here and is comfortable, she is worried that when she goes to [facility] it will be different. Also going to see her son today who she has not seen in 4 weeks, nervous about that and wants to be strong for him. She had about 3 doses of oxycodone in the last 24 hours. We talked about adjusting her medications and discussed the etiology of her pain. She is agreeable to the plan. Objective: Vital Signs Temp 98.9 F 01/11/21 05:00 Pulse 86 01/11/21 06:49 Resp 14 01/11/21 05:00 BP 137/76 H 01/11/21 05:00 Pulse Ox 92 01/11/21 05:00 Intake & Output 01/09/21 01/10/21 01/11/21 23:59 23:59 23:59 Intake Total 720 / 720 240 / 240 Output Total 1100 / 1100 2100 / 2100 500 / 500 Balance -380 / -380 -2100 / -2100 -260 / -260 Intake: Oral 720 / 720 240 / 240 Output: Urine 1100 / 1100 2100 / 2100 500 / 500 Other: Number of Bowel Movements 1 01/10/21 01/10/21 01/11/21 15:28 21:20 06:06 Urine Protein 100 H Urine Ketones 5 H Urine Occult Blood 250 H Urine Nitrite Positive H Ur Leukocyte Esterase 500 H POC Glucose 162 H 151 H Current Medications Acetaminophen (Acetaminophen 500 Mg Tablet) 1,000 mg PO Q8 [facility] Last Admin: 01/11/21 06:47 Dose: 1,000 mg Documented by: Amoxicillin/Clavulanate Potassium (Amox/Clavulanate 875 Mg Tablet) 875 mg PO BIDCM [facility] Last Admin: 01/11/21 09:26 Dose: 875 mg Documented by: Bisacodyl (Bisacodyl 5 Mg Tablet) 10 mg PO DAILY PRN PRN Reason: Constipation Last Admin: 12/31/20 14:24 Dose: 10 mg Documented by: Calamine/Phenol (Menthol/Lanolin/Calamine/Znox 113 Gm Tube) 1 applic TOPICAL BID [facility]; Protocol Last Admin: 01/11/21 06:53 Dose: 1 applic Documented by: Cyclobenzaprine HCl (Cyclobenzaprine Hcl 10 Mg Tablet) 10 mg PO TID PRN PRN PRN Reason: Muscle spasms Last Admin: 01/10/21 17:37 Dose: 10 mg Documented by: Enoxaparin Sodium (Enoxaparin 40 Mg/0.4 Ml Syringe) 40 mg SC DAILY@0600 [facility] Last Admin: 01/11/21 06:46 Dose: 40 mg Documented by: Ergocalciferol (Ergocalciferol 50,000 Unit Capsule) 50,000 unit PO MOFR [facility] Last Admin: 01/11/21 06:49 Dose: 50,000 unit Documented by: Gabapentin (Gabapentin 400 Mg Capsule) 400 mg PO 4X/DAY [facility] Glimepiride (Glimepiride 2 Mg Tablet) 2 mg PO DINNER [facility] Last Admin: 01/10/21 17:37 Dose: 2 mg Documented by: Insulin Glargine (Insulin Glargine 100 Units/Ml Pen) 10 units SC QHS [facility] Last Admin: 01/10/21 22:29 Dose: 10 u Documented by: Magnesium Hydroxide (Magnesium Hydroxide 30 Ml Udc) 30 ml PO DAILY PRN PRN Reason: Constipation Metoprolol Succinate (Metoprolol(Xl)Succ 25 Mg Tablet) 25 mg PO DAILY [facility] Last Admin: 01/11/21 06:49 Dose: 25 mg Documented by: Nutritional Formula (Lactose Free) (Glucerna Shake 120 Ml Liquid) 120 ml PO TIDCM [facility] Last Admin: 01/11/21 09:19 Dose: 120 ml Documented by: Nystatin (Nystatin Powder 15gm Bottle) 1 applic TOPICAL BID [facility]; Protocol Last Admin: 01/11/21 06:49 Dose: 1 each Documented by: Oxycodone HCl (Oxycodone 5 Mg Tablet) 10 mg PO Q4H PRN PRN PRN Reason: Pain Score 6-10 Oxycodone HCl (Oxycodone 5 Mg Tablet) 10 mg PO TID [facility] Polyethylene Glycol (Polyethylene Glycol 3350 17 Gm Packet) 17 gm PO BID [facility] Last Admin: 01/11/21 09:16 Dose: 17 gm Documented by: Senna/Docusate Sodium (Senna/Docusate Sodium 1 Tablet) 2 tablet PO TID [facility] Last Admin: 01/11/21 06:48 Dose: 2 tablet Documented by: Tamsulosin HCl (Tamsulosin Hcl 0.4 Mg Capsule) 0.4 mg PO DAILY@1730 [facility] Last Admin: 01/10/21 17:37 Dose: 0.4 mg Documented by: Thyroid (Thyroid 60 Mg Tablet) 120 mg PO SuMoTuThFr [facility] Last Admin: 01/11/21 06:49 Dose: 120 mg Documented by: Thyroid (Thyroid 60 Mg Tablet) 240 mg PO WESA [facility] Last Admin: 01/09/21 05:20 Dose: 240 mg Documented by: - Physical Exam General: Alert, Oriented x3, Cooperative, - - Tearful HEENT: Atraumatic, Normocephalic Oral: Moist Mucosa Lungs: Clear to auscultation Cardiovascular: Regular rate, Regular Rhythm Abdomen: Bowel Sounds Present, Soft, Non Tender Extremities: No edema Psych/Mental Status: Appropriate, - - Tearful, emotional Assessment/Plan All Active Problems Lumbar radiculopathy (Acute) Intractable back pain (Acute) Ambulatory dysfunction (Acute) Debility (Acute) Lumbar disc herniation with radiculopathy (Acute) Lumbar spinal stenosis (Acute) Muscle spasm (Acute) Neuropathic pain (Acute) Ulcerative colitis (Acute) 65-year-old female with severe lumbar canal stenosis L1-L2 due to disc protrusion, s/p discectomy and fusion, palliative care consultation to help manage pain. PLAN Back pain/severe lumbar canal stenosis L1-L2 -- Adjust medications as follows: Decrease oxycodone to 10 mg every 4 hours as needed but schedule 10 mg dose 3 times a day. DC MS Contin. Increase gabapentin from 400 mg 3 times daily to 400 mg 4 times a day. Hopefully, this will help with her radiculopathy pain. Continue to, we will follow up closely with the patient at SNF and make further adjustments at that time. Thank you for the opportunity to participate in this patient's care, please do not hesitate to contact [facility] with any further questions or concerns. Palliative direct line is [phone]. We will have HEART NURSE follow up approximately 3 days after discharge to [facility] and will discuss palliative services further at that time, as well as monitor and adjust pain medications.
--- NOTE | 2021-01-11 11:53 | CASEMGMT ---
Social Work BIMS and PHQ-9 completed for MDS assessment. Hafsa Denny, CLAY ARTIST VAN HELPER
[2021-01-11 12:14] VITALS: PULSE 89; RESP 16; O2SAT 99
[2021-01-11] MEDS: oxyCODONE 5 MG Tablet 10 MG PO ×2 (14:02→22:22)
[2021-01-11 14:28] VITALS: BP 140/77; PULSE 89; RESP 16; TEMP 37; O2SAT 99
[2021-01-11] MEDS: Tamsulosin HCl 0.4 MG Capsule PO (16:29)
[2021-01-11] MEDS: Glimepiride 2 MG Tablet PO (16:30)
--- NOTE | 2021-01-11 16:38 | PCM.TXEXTCAR ---
- Diet 12/29/20 12:00 Diet: Carbohydrate Controlled Food consistency:: Regular Liquid Consistency:: Regular/Thin Dietary Modifications:: Gluten Free Is pt able to select menu?: Yes - Routine Orders/Code Status Enema Type: Fleetz Enema Frequency: Daily PRN Suppository Type: Dulcolax 10mg Suppository Frequency: Daily PRN O2 Liters per Minute: 2 O2 Frequency: PRN Keep PO Greater than or Equal to (%): 90 Code Status: Full Code - Wound(s) back Wound Type: Surgical Incision Dressing Change: TECHNOLOGY COORDINATOR - Suggestions for Active Care Change Position every (hours): 2 - Therapies Weight Bearing: Full weight bearing Physical Therapy: Eval and Treat Occupational Therapy: Eval and Treat - Problem/Diagnosis (1) Lumbar radiculopathy Status: Chronic (2) Intractable back pain Status: Chronic (3) Ambulatory dysfunction Status: Acute (4) Debility Status: Acute (5) Lumbar disc herniation with radiculopathy Status: Chronic (6) Lumbar spinal stenosis Status: Chronic (7) Diabetes mellitus Status: Chronic (8) Vitamin D deficiency Status: Chronic (9) Hypertension Status: Chronic (10) Hypothyroidism Status: Chronic (11) Tobacco abuse Status: Chronic (12) Muscle spasm Status: Acute (13) Neuropathic pain Status: Acute (14) Ulcerative colitis Status: Chronic (15) Celiac disease Status: Chronic (16) Irritable bowel syndrome Status: Chronic (17) Cannabis abuse Status: Chronic (18) Hyponatremia Status: Acute (19) History of lumbar discectomy Status: Acute (20) History of lumbar fusion Status: Acute (21) Urine retention Status: Acute (22) Lumbar myelopathy Status: Acute (23) Catheter-associated urinary tract infection Status: Acute - Allergies/Procedures Done in Hospital Allergies/Adverse Reactions: Allergies aspirin Allergy (Verified 12/18/20 15:33) mouth swelling gluten Allergy (Verified 12/20/20 06:44) Abd cramps/diarrhea ibuprofen Allergy (Verified 12/18/20 15:33) mouth swelling Sulfa (Sulfonamide Antibiotics) Allergy (Verified 12/18/20 15:33) pt can't remember Procedures: None - Type of Care/Length of Stay Estimated LOS: Convalescent Care Less Than 30 days Type of Care Needed: Intermediate Rehab Potential: Fair Prognosis: Fair - Additional Orders/Day of Discharge Additional Orders: Part B therapies H&P will serve as current which was dated: 12/28/20 Day of Discharge: 01/13/21 - Dietary and Speech Recommendations Dietitian Recommendations/Changes: Will continue Consistent CHO/gluten free diet d/t pmhx. Will continue glucerna shake tid d/t providing only van or claudia per res preference - Follow Up Care Primary Care Physician: Preet Farrar DO [Primary Care Provider] - Please Follow Up With: Steve Martinez (Dr Montes) When: 2 weeks
--- NOTE | 2021-01-11 16:48 | DS.PCM_ITS ---
Discharge Date and Diagnosis - Problem List Patient Problems: Active and Suspected Problems Ambulatory dysfunction (Acute) Debility (Acute) Muscle spasm (Acute) Neuropathic pain (Acute) Hyponatremia (Acute) History of lumbar discectomy (Acute) History of lumbar fusion (Acute) Urine retention (Acute) Lumbar myelopathy (Acute) Catheter-associated urinary tract infection (Acute) Date of Admission: 01/10/21 Date of Discharge: 01/13/21 - Primary Discharge Diagnosis Acute Problems: Active Problems Debility (Acute) due to severe lumbar canal stenosis at L1-2 due to large herniated disc with posterior discectomy and fusion at L1-2 on 12/21/20 Muscle spasm (Acute) Lumbar radiculopathy/myelopathy secondary to large disc herniation at L1-L2 Hyponatremia (Acute) History of lumbar discectomy (Acute) History of lumbar fusion (Acute) Urine retention (Acute) Catheter-associated urinary tract infection (Acute) GM negative chris. Final culture is pending Ambulatory dysfunction (Acute) - Secondary Discharge Diagnosis Chronic Problems: Chronic Problems Lumbar radiculopathy (Chronic) Intractable back pain (Chronic) Lumbar disc herniation with radiculopathy (Chronic) Lumbar spinal stenosis (Chronic) Diabetes mellitus II (Chronic) Vitamin D deficiency (Chronic) Hypertension (Chronic) Hypothyroidism (Chronic) Tobacco abuse (Chronic) Ulcerative colitis (Chronic) Celiac disease (Chronic) Irritable bowel syndrome (Chronic) Cannabis abuse (Chronic) Hospital Course and Treatment Imaging Results: Clinical Impression(s) from Imaging Studies KUB X-Ray 01/01/21 08:40 IMPRESSION: No acute findings Electronically Signed: Sánchez Zaldivar MD at 9:05 EDT , Service support , Laboratory Last Values WBC 8.5 K/mm3 (4.4-11.0) 01/05/21 07:25 RBC 4.00 M/mm3 (4.2-5.4) L 01/05/21 07:25 Hgb 12.1 g/dL (12.0-15.0) 01/05/21 07:25 Hct 37.3 % (37-47) 01/05/21 07:25 MCV 93.3 fL (81-99) 01/05/21 07:25 MCH 30.3 pg (27.0-32.0) 01/05/21 07:25 MCHC 32.4 g/dL (32-36) 01/05/21 07:25 RDW Std Deviation 43.3 fl (35.1-43.9) 01/05/21 07:25 RDW Coeff of Neida 12.5 % (11.6-14.6) 01/05/21 07:25 Plt Count 386 K/mm3 (150-450) 01/05/21 07:25 MPV 8.8 fl (6.2-12.0) 01/05/21 07:25 Immature Gran % (Auto) 0.700 % (0.0-0.9) 01/05/21 07:25 Neut % (Auto) 67.9 % (47-70) 01/05/21 07:25 Lymph % (Auto) 19.4 % (19-41) 01/05/21 07:25 Churchill % (Auto) 7.2 % (0-10) 01/05/21 07:25 Eos % (Auto) 4.3 % (0-5) 01/05/21 07:25 Baso % (Auto) 0.5 % (0-1) 01/05/21 07:25 Absolute Neuts (auto) 5.8 X10^3/uL (2.0-7.7) 01/05/21 07:25 Absolute Lymphs (auto) 1.64 X10^3/uL (0.83-4.51) 01/05/21 07:25 Nucleated RBC % 0 % (0-5) 01/05/21 07:25 Sodium 131 mmol/L (136-145) L 01/07/21 05:30 Potassium 4.1 mmol/L (3.5-5.1) 01/07/21 05:30 Chloride 95 mmol/L (98-107) L 01/07/21 05:30 Carbon Dioxide 31.0 mmol/L (21.0-32.0) 01/07/21 05:30 Anion Gap 5 (5-15) 01/07/21 05:30 BUN 9 mg/dL (7-18) 01/07/21 05:30 Creatinine 0.49 mg/dL (0.55-1.02) L 01/07/21 05:30 Estim Creat Clear Calc 82.22 ml/min 01/07/21 05:30 Est GFR (MDRD) Af Amer 164 mL/min (>60) 01/07/21 05:30 Est GFR (MDRD) Non-Af 135 mL/min (>60) 01/07/21 05:30 BUN/Creatinine Ratio 18.4 RATIO (10-20) 01/07/21 05:30 Glucose 172 mg/dL (74-106) H 01/07/21 05:30 Calcium 9.2 mg/dL (8.5-10.1) 01/07/21 05:30 Urine Color Yellow (Yellow) 01/10/21 15:28 Urine Clarity Cloudy (Clear) 01/10/21 15:28 Urine pH 5.0 (5.0 - 8.0) 01/10/21 15:28 Ur Specific [place] 1.030 (1.002-1.030) 01/10/21 15:28 Urine Protein 100 mg/dl (Negative) H 01/10/21 15:28 Urine Glucose (UA) Normal mg/dl (Normal) 01/10/21 15:28 Urine Ketones 5 mg/dl (Negative) H 01/10/21 15:28 Urine Occult Blood 250 /ul (Negative) H 01/10/21 15:28 Urine Nitrite Positive (Negative) H 01/10/21 15: Urine Bilirubin Negative mg/dL (Negative) 01/10/21 15:28 Urine Urobilinogen Normal mg/dl (Normal) 01/10/21 15:28 Ur Leukocyte Esterase 500 /ul (Negative) H 01/10/21 15:28 Urine RBC 25-50 SEEN /hpf (0-5) 01/10/21 15:28 Urine WBC >100 SEEN /hpf (0-5) 01/10/21 15:28 Ur Squamous Epith Cells 0 SEEN /hpf (5-10) 01/10/21 15:28 Urine Bacteria 4+ /hpf (None Seen) 01/10/21 15: Urine Mucus 0 SEEN /hpf (<or=2+) 01/10/21 15:28 POC Glucose 151 mg/dL (70-110) H 01/11/21 06:06 Microbiology 01/10/21 15:28 Urine Catheter - Doll Urine Culture - Preliminary Gram negative chris palliative care Operations: None Procedures: None Summary of Care Provided: The patient is a 65 year old F with a PMH of hypertension, tobacco dependence, hypothyroidism, diabetes mellitus type 2, celiac disease, ulcerative colitis, irritable bowel syndrome and frequent cannabis use presented to the emergency department at [facility] on 12/18/2020 complaining of progressively worsening back pain with radiation into her buttocks and legs after a fall that happened the end of October. She complained of leg weakness inability to bear weight. A CT scan of the lumbosacral spine showed multilevel degenerative changes with bilateral neural foraminal and central spinal stenosis. She was admitted to the hospital for pain control and further work- up. MRI on 12/20/2020 showed a large central disc extrusion at L1/L2 causing severe spinal stenosis with effacement of virtually all of the lumbar spine nerve roots. She was seen in consultation by Dr. Hrais Moreland who recommended transfer to a tertiary care center because cardiothoracic surgery may be needed to take down the diaphragm to approach the disc from the side. She was transferred on 12/21/2020 to [facility]. She underwent a posterior approach discectomy at L1-L2 and lumbar fusion at the same level. She was transferred back to [facility] transitional care unit on 12/28/2020 for rehabilitation to restore her at or near her prior level of function. Her pain was difficult to control and palliative care was consulted to participate in pain management. Due to the large doses of narcotics needed to control her pain to her satisfaction and possibly due to spinal cord dysfunction due to prolonged time the cord was compressed prior to her presenting to the ED she developed urine retention. A Doll catheter was inserted. She subsequently developed a catheter associated urinary tract infection and was started on Augmentin on 01/10/2021. The UA was positive for nitrite and had greater than 100 WBCs per high-power field, 25-50 RBCs per high-power field and 4+ bacteria. Urine culture at the time of this discharge summary is growing a gram-negative chris, greater than 100,000 colonies. She has been afebrile but she has been on Tylenol every 8 hours for pain control. At the time of DC from TCU she was requiring mod assist of 2 for bed mobility and she was dependent for standing. She needed assist of 2 with the Batsheva Lift to get to standing. She was able to perform sidestepping to the head of the bed with a front wheeled walker with minimal assistance x2 but fatigues very easily with just a few steps. She required moderate assistance with bathing and upper body dressing. She is total assistance for lower body dressing and toileting. She was transferred to [facility] for convalescent care < 30 days on 01/13/21 for further PT/OT so that she can hopefully return home to her family. 7 day Rx's were written for Oxycodone 10 mg at the request of palliative care and they will be prescribing the pain medications after the initial 7 days. the results of the urine culture should be available prior to DC on 01/13 and the an tibiotic will be changed prior to DC if necessary. I suspect she may benefit from a consult with pain management going forward. Drowsy, arouses easily. She is lying flat in bed on her back. Oral mucosa is moist Lungs anterior and lateral are diminished but clear to auscultation Heart-regular rate and rhythm, no gallop Abdomen-soft, nontender, nondistended, bowel sounds present No peripheral edema This note was generated with [employer] dictation software. It may contain incorrect words, spelling, and punctuation that were not noted in checking the note before signing. Patient Problems: Active and Suspected Problems Ambulatory dysfunction (Acute) Debility (Acute) Muscle spasm (Acute) Neuropathic pain (Acute) Hyponatremia (Acute) History of lumbar discectomy (Acute) History of lumbar fusion (Acute) Urine retention (Acute) Lumbar myelopathy (Acute) Catheter-associated urinary tract infection (Acute) - Physical Exam Vitals/I&O's: Vital Signs Temp Pulse Resp BP Pulse Ox 98.6 F 89 16 140/77 H 99 01/11/21 14:28 01/11/21 14:28 01/11/21 14:28 01/11/21 14:28 01/11/21 14:28 Oxygen Delivery Method Room Air Weight: 178 lb 3 oz Body Mass Index (BMI) 35.2 Intake and Output for Last 24 Hours 01/09/21 01/10/21 01/11/21 23:59 23:59 23:59 Intake Total 720 / 720 480 / 480 Output Total 1100 / 1100 2100 / 2100 1700 / 1700 Balance -380 / -380 -2100 / -2100 -1220 / -1220 Microbiology Past 72 Hours 01/10/21 15:28 Urine Catheter - Doll Urine Culture - Preliminary Gram negative chris Laboratory Results 01/10/21 15:28: Urine Color Yellow, Urine Clarity Cloudy, Urine pH 5.0, Ur Specific [place] 1.030, Urine Protein 100 H, Urine Glucose (UA) Normal, Urine Ketones 5 H, Urine Occult Blood 250 H, Urine Nitrite Positive H, Urine Bilirubin Negative, Urine Urobilinogen Normal, Ur Leukocyte Esterase 500 H, Urine RBC 25- 50 SEEN, Urine WBC >100 SEEN, Ur Squamous Epith Cells 0 SEEN, Urine Bacteria 4+, Urine Mucus 0 SEEN 01/10/21 21:20: POC Glucose 162 H 01/11/21 06:06: POC Glucose 151 H Current Medications Acetaminophen (Acetaminophen 500 Mg Tablet) 1,000 mg PO Q8 [facility] Last Admin: 01/11/21 14:02 Dose: 1,000 mg Documented by: Amoxicillin/Clavulanate Potassium (Amox/Clavulanate 875 Mg Tablet) [facility] Last Admin: 01/11/21 16:30 Dose: 875 mg Documented by: Bisacodyl (Bisacodyl 5 Mg Tablet) 10 mg PO DAILY PRN PRN Reason: Constipation Last Admin: 12/31/20 14:24 Dose: 10 mg Documented by: Calamine/Phenol (Menthol/Lanolin/Calamine/Znox 113 Gm Tube) 1 applic TOPICAL BID [facility]; Protocol Last Admin: 01/11/21 16:32 Dose: 1 applic Documented by: Cyclobenzaprine HCl (Cyclobenzaprine Hcl 10 Mg Tablet) 10 mg PO TID PRN PRN PRN Reason: Muscle spasms Last Admin: 01/10/21 17:37 Dose: 10 mg Documented by: Enoxaparin Sodium (Enoxaparin 40 Mg/0.4 Ml Syringe) 40 mg SC DAILY@0600 [facility] Last Admin: 01/11/21 06:46 Dose: 40 mg Documented by: Ergocalciferol (Ergocalciferol 50,000 Unit Capsule) 50,000 unit PO MOFR [facility] Last Admin: 01/11/21 06:49 Dose: 50,000 unit Documented by: Gabapentin (Gabapentin 400 Mg Capsule) 400 [facility] Last Admin: 01/11/21 16:29 Dose: 400 mg Documented by: Glimepiride (Glimepiride 2 Mg Tablet) 2 mg PO DINNER [facility] Last Admin: 01/11/21 16:30 Dose: 2 mg Documented by: Insulin Glargine (Insulin Glargine 100 Units/Ml Pen) 10 units SC QHS [facility] Last Admin: 01/10/21 22:29 Dose: 10 u Documented by: Magnesium Hydroxide (Magnesium Hydroxide 30 Ml Udc) 30 ml PO DAILY PRN PRN Reason: Constipation Metoprolol Succinate (Metoprolol(Xl)Succ 25 Mg Tablet) 25 mg PO DAILY [facility] Last Admin: 01/11/21 06:49 Dose: 25 mg Documented by: Nutritional Formula (Lactose Free) (Glucerna Shake 120 Ml Liquid) 120 ml PO TIDCM [facility] Last Admin: 01/11/21 16:32 Dose: 120 ml Documented by: Nystatin (Nystatin Powder 15gm Bottle) 1 applic TOPICAL BID [facility]; Protocol Last Admin: 01/11/21 16:33 Dose: 1 each Documented by: Oxycodone HCl (Oxycodone 5 Mg Tablet) 10 mg PO Q4H PRN PRN PRN Reason: Pain Score 6-10 Oxycodone HCl (Oxycodone 5 Mg Tablet) 10 mg PO TID [facility] Last Admin: 01/11/21 14:02 Dose: 10 mg Documented by: Polyethylene Glycol (Polyethylene Glycol 3350 17 Gm Packet) 17 gm PO BID [facility] Last Admin: 01/11/21 16:28 Dose: Not Given Documented by: Senna/Docusate Sodium (Senna/Docusate Sodium 1 Tablet) 2 tablet PO TID [facility] Last Admin: 01/11/21 14:02 Dose: 2 tablet Documented by: Tamsulosin HCl (Tamsulosin Hcl 0.4 Mg Capsule) 0.4 mg PO DAILY@1730 [facility] Last Admin: 01/11/21 16:29 Dose: 0.4 mg Documented by: Thyroid (Thyroid 60 Mg Tablet) 120 mg PO SuMoTuThFr [facility] Last Admin: 01/11/21 06:49 Dose: 120 mg Documented by: Thyroid (Thyroid 60 Mg Tablet) 240 mg PO WESA [facility] Last Admin: 01/09/21 05:20 Dose: 240 mg Documented by: Home Medications: Medications to take at Discharge Ergocalciferol (Vitamin D2) [Vitamin D2] 50,000 unit PO MOFR 12/18/20 Glimepiride 2 mg PO DINNER 12/18/20 Metoprolol Succinate 25 mg PO DAILY 12/18/20 Thyroid,Pork [Adaptive Physical Education Specialist Thyroid] 120 tablet PO DAILY 12/18/20 Thyroid,Pork [Adaptive Physical Education Specialist Thyroid] 240 mg PO WESA 12/18/20 cycloBENZAPRine HCl [Flexeril] 10 mg PO TID PRN PRN 12/28/20 Acetaminophen [Tylenol] 1,000 mg PO Q8 tablet 01/11/21 Amox/Clavulanate Tablet [Augmentin Tablet] 875 mg PO BIDCM #14 tablet 01/11/21 Bisacodyl [Dulcolax] 10 mg PO DAILY PRN tablet 01/11/21 Enoxaparin [Lovenox] 40 mg SC DAILY@0600 syringe 01/11/21 Gabapentin [Neurontin] 400 mg PO 4X/DAYCM capsule 01/11/21 Glucerna Shake 120 ml PO TIDCM liquid 01/11/21 Insulin Glargine [Lantus SoloStar Pen] 10 units SC QHS pen 01/11/21 Magnesium Hydroxide [Milk Of Magnesia] 30 ml PO DAILY PRN udc 01/11/21 Nystatin Powder [Mycostatin Powder] 1 applic TOPICAL BID bottle 01/11/21 Oxycodone HCl 10 mg PO Q4H PRN PRN #30 tablet 01/11/21 Oxycodone HCl 10 mg PO TID 7 Days #21 tablet 01/11/21 Polyethylene Glycol 3350 [Miralax] 17 gm PO BID packet 01/11/21 Senna/Docusate Sodium [Senokot-S] 2 tablet PO TID tablet 01/11/21 Following Prescriptions Were Given to Patient: Amox/Clavulanate Tablet [Augmentin Tablet] 875 mg PO BIDCM #14 tablet Prescription Printed Oxycodone HCl 10 mg PO Q4H PRN PRN #30 tablet PRN Reason: pain 5-10 Prescription Printed Oxycodone HCl 10 mg PO TID 7 Days #21 tablet Prescription Printed Primary Care Physician: Preet Farrar DO [Primary Care Provider] - Please Follow Up With: Steve Martinez (Dr Montes) When: 2 weeks Disposition: Senior Living facility Minutes spent on discharge:: 35 Patient Condition:: Fair Medical Necessity - Tobacco Use Smoking Status: Current every day smoker Tobacco Use: Cigarettes Meaningful Use Info Meaningful Use Diagnoses (Choose all that apply): None applicable Inpatient E&M: 48903 Disch Hosp
--- NOTE | 2021-01-11 17:45 | CASEMGMT ---
Social Work LOC received. Faxed to [facility]. Hafsa Denny, PRINTING PRESS MACHINE OPERATOR SCIENTIFIC RESEARCH MANAGER
[2021-01-11 21:41] LABS: Bedside Glucose 170 mg/dL (70-110)
[2021-01-12 05:00] VITALS: BP 117/63; PULSE 86; RESP 16; TEMP 36.6; O2SAT 96
[2021-01-12] MEDS: Enoxaparin 40 MG/0.4 ML Syringe SC (05:10)
[2021-01-12] MEDS: Thyroid 60 MG Tablet 240 MG PO (05:11)
[2021-01-12] MEDS: Nystatin Powder 15gm Bottle 1 APPLIC TOPICAL ×2 (05:12→17:37)
[2021-01-12] MEDS: Menthol/Lanolin/Calamine/Znox 113 GM Tube 1 APPLIC TOPICAL ×2 (05:12→17:38)
[2021-01-12] MEDS: oxyCODONE 5 MG Tablet 10 MG PO ×5 (05:13→21:48)
[2021-01-12] MEDS: Acetaminophen 500 MG Tablet 1000 MG PO ×3 (05:13→21:49)
[2021-01-12 05:16] VITALS: BP 117/63; PULSE 86
[2021-01-12] MEDS: Metoprolol(XL)Succ 25 MG Tablet PO (05:16)
[2021-01-12 06:41] LABS: Bedside Glucose 174 mg/dL (70-110)
[2021-01-12 06:47] LABS: Absolute Lymphocyte Count 1.47 X10^3/uL (0.83-4.51); Basophil# 0.04 X10^3/uL; Basophil% 0.5 % (0-1); Eosinophil# 0.27 X10^3/uL; Eosinophils% 3.6 % (0-5); Hematocrit 38.7 % (37-47); Hemoglobin 12.5 g/dL (12.0-15.0); Lymphocyte # 1.47 X10^3/ul (0.83-4.51); Lymphocyte % 19.6 % (19-41); Mean Corp Hgb Conc 32.3 g/dL (32-36); Mean Corpuscular Volume 92.8 fL (81-99); Mean Platelet Vol. 8.5 fl (6.2-12.0); Monocyte# 0.66 X10^3/uL; Monocyte% 8.8 % (0-10); NRBC Flagged by Analyzer 0 % (0-5); Neutrophil # 4.98 X10^3/uL (2.7-7.7); Neutrophil % 66.4 % (47-70); Platelet Count 499 K/mm3 (150-450); RBC Distribution Width CV 12.6 % (11.6-14.6); RBC Distribution Width SD 42.6 fl (35.1-43.9); Red Blood Count 4.17 M/mm3 (4.2-5.4); White Blood Count 7.5 K/mm3 (4.4-11.0)
[2021-01-12 07:09] LABS: Anion Gap 7 (5-15); BUN 7 mg/dL (7-18); BUN/Creat Ratio 17.7 RATIO (10-20); Calcium,Total 9.2 mg/dL (8.5-10.1); Chloride 99 mmol/L (98-107); EST Glomerular Filtration Rate 173 mL/min (>60); Est Glom Filt Rate - Afr Amer 209 mL/min (>60); Estimated Creatinine Clearance 100.72 ml/min; Glucose 155 mg/dL (74-106); Potassium 3.7 mmol/L (3.5-5.1); Sodium Level 134 mmol/L (136-145)
[2021-01-12] MEDS: Glucerna Shake 120 ML LIQUID PO ×3 (09:01→17:33)
[2021-01-12] MEDS: Amox/Clavulanate 875 MG Tablet PO (09:01)
[2021-01-12] MEDS: Gabapentin 400 MG Capsule PO ×4 (09:01→21:49)
[2021-01-12 14:17] VITALS: BP 173/80; PULSE 81; RESP 20; TEMP 36.6; O2SAT 95
[2021-01-12] MEDS: Glimepiride 2 MG Tablet PO (17:33)
[2021-01-12] MEDS: Nitrofurantoin Macrocrystals 100 MG Capsule PO (17:34)
[2021-01-12] MEDS: Tamsulosin HCl 0.4 MG Capsule PO (17:34)
[2021-01-12] MEDS: cycloBENZAPRine HCl 10 MG Tablet PO (18:36)
[2021-01-12 22:16] LABS: Bedside Glucose 135 mg/dL (70-110)
[2021-01-13] MEDS: oxyCODONE 5 MG Tablet 10 MG PO ×2 (01:14→05:59)
--- NOTE | 2021-01-13 01:15 | NURSING ---
Resting in bed with eyes closed, wakens easily, rates pain at 8/10 and requesting oxy, medicated per order.
[2021-01-13 04:44] VITALS: BP 145/74; PULSE 82; RESP 16; TEMP 36.8; O2SAT 94
[2021-01-13] MEDS: cycloBENZAPRine HCl 10 MG Tablet PO (04:44)
[2021-01-13] MEDS: Thyroid 60 MG Tablet 120 MG PO (04:44)
[2021-01-13 04:45] VITALS: BP 145/74; PULSE 82
[2021-01-13] MEDS: Enoxaparin 40 MG/0.4 ML Syringe SC (04:45)
[2021-01-13] MEDS: Metoprolol(XL)Succ 25 MG Tablet PO (04:45)
[2021-01-13] MEDS: Menthol/Lanolin/Calamine/Znox 113 GM Tube 1 APPLIC TOPICAL (04:47)
[2021-01-13] MEDS: Nystatin Powder 15gm Bottle 1 APPLIC TOPICAL (04:47)
[2021-01-13] MEDS: Acetaminophen 500 MG Tablet 1000 MG PO (05:59)
[2021-01-13 06:46] LABS: Bedside Glucose 159 mg/dL (70-110)
[2021-01-13] MEDS: Gabapentin 400 MG Capsule PO ×2 (08:20→11:02)
[2021-01-13] MEDS: Nitrofurantoin Macrocrystals 100 MG Capsule PO (08:21)
[2021-01-13] MEDS: Glucerna Shake 120 ML LIQUID PO (08:21)
[2021-01-13 10:21] VITALS: PULSE 82; RESP 16; O2SAT 96
[2021-01-13 11:22] VITALS: BP 108/62; PULSE 82; RESP 16; TEMP 36.4; O2SAT 96
== END 2021-01-13 11:24 | disposition skilled nursing facility (03) | DRG 560 ==
PROVIDERS: Internal Medicine; Admitting Provider Family Medicine Geriatric Medicine; PCP Student in an Organized Health Care Education/Training Program; Visit Provider Family Medicine Geriatric Medicine
DX: Z47.89 Encounter for other orthopedic aftercare (principal); K51.90 Ulcerative colitis, unspecified, without complications; Z98.1 Arthrodesis status; M51.16 Intervertebral disc disorders with radiculopathy, lumbar region; M48.061 Spinal stenosis, lumbar region without neurogenic claudication; I10 Essential (primary) hypertension; E03.9 Hypothyroidism, unspecified; K90.0 Celiac disease; E55.9 Vitamin D deficiency, unspecified; E11.40 Type 2 diabetes mellitus with diabetic neuropathy, unspecified; F17.210 Nicotine dependence, cigarettes, uncomplicated; F12.10 Cannabis abuse, uncomplicated; Z79.899 Other long term (current) drug therapy; Z79.84 Long term (current) use of oral hypoglycemic drugs
CPT/HCPCS: 36415; 72148; 74018; 80048; 81001; 82962; 85025; 87077; 87086; 87088; 87186; 87426; 97110; 97163; 97166; 97530; 97535; 97802

== ENCOUNTER → 2021-01-02 14:13 | Outpatient (CLI) | payer MEDICARE, SELFPAY ==
[2020-12-28 17:02] VITALS: BMI 35.2
--- NOTE | 2021-01-02 14:37 | MRI_ITS ---
STUDY: MRI LUMBAR SPINE WITHOUT CONTRAST REASON FOR EXAM: Female, 65 years old. LEFT LEG WEAKNESS S/P BACK SURGERY TECHNIQUE: Standardized fat and water weighted pulse sequences were obtained in the sagittal and axial planes. COMPARISON: 12/20/2020 and 12/18/2020 FINDINGS: T12-L1: Normal endplates. Normal disc height, hydration and morphology. Normal bilateral facet joints. Normal central canal and bilateral lateral recesses. Normal bilateral intervertebral neural foramina. Normal lumbar lordosis. There is no substantial scoliosis. Normal conus medullaris that terminates at the L1-2: There is a large disc herniation more prominent on the left side. There is bilateral laminectomy. There is posterior fusion hardware is well-placed. There is extensive epidural scarring and possible intrathecal scarring adjacent to the conus medullaris. L2-3: Endplate spondylosis. Decreased disc height and small circumferential disc bulge. Degenerative changes of the bilateral facet joints. Mild narrowing of the central canal and bilateral intervertebral neural foramina. L3-4: Endplate spondylosis. Decreased disc height and small circumferential disc bulge. Degenerative changes of the bilateral facet joints. Moderate narrowing of the central canal and bilateral intervertebral neural foramina. L4-5: Endplate spondylosis. Decreased disc height and small circumferential disc bulge. Degenerative changes of the bilateral facet joints. Severe narrowing of the central canal and bilateral intervertebral neural foramina. L5-S1: Endplate spondylosis. Decreased disc height and small circumferential disc bulge. Superimposed small left para midline and left foraminal disc herniation impinging on the left S1 nerve root. Degenerative changes of the bilateral facet joints. Mild narrowing of the central canal and bilateral intervertebral neural foramina. Normal visualized sacral ala. Normal visualized paraspinous soft tissue structures. MRI/Spine Lumbar (Routine) IMPRESSION: Multilevel degenerative changes most severe at L4-5 and L5-S1, as described above. Postsurgical changes at L1-2 for large disc herniation. There is extensive epidural scarring and possible intrathecal scarring adjacent to the conus medullaris. Further evaluation by MRI with IV contrast would be helpful. Electronically Signed: Brooks Hargrove MD at 16:28 EDT Tel , Service support ,
== END ==
PROVIDERS: PCP Student in an Organized Health Care Education/Training Program; Visit Provider Family Medicine Geriatric Medicine
DX: R53.1 Weakness (principal); Z98.890 Other specified postprocedural states
CPT/HCPCS: 72148

== ENCOUNTER → 2022-04-09 | Outpatient (CLI) | payer MEDICARE, SELFPAY ==
--- NOTE | 2022-04-09 07:54 | CT_ITS ---
STUDY: CTA OF THE ABDOMINAL AORTA. REASON FOR EXAM: Female, 66 years old. STRICTURE OF renal ARTERY RADIATION DOSAGE (If Supplied By Facility): CTDIvol = ( 20.22 ) mGy, DLP = ( 892.44 ) mGycm TECHNIQUE: Axial CT angiography multi-detector data acquisition was obtained from the dome of the liver to the symphysis pubis following intravenous administration of IV 100mL Isovue-300. Axial images and MIP images were reconstructed from the axial data set. Post-processing of the angiographic images was performed, with multiplanar reformation and 3D reconstruction. Individualized dose optimization techniques were used for this CT. TECHNICAL QUALITY: Good COMPARISON: None. Descriptors of Narrowing: None (0%) Mild (< 50%) Moderate (50-70%) Severe (70-90%) Subtotal/Total Occlusion (90-100%) Non-Evaluable (technically non-diagnostic FINDINGS: Abdominal aorta: Atherosclerotic plaque formation of the abdominal aorta. Celiac and superior mesenteric arteries: No demonstrated narrowing. Inferior mesenteric artery: No demonstrated narrowing. Right renal artery(arteries): There is evidence of narrowing in the proximal portion of the right renal artery of approximately 60-70%. Left renal artery(arteries): No demonstrated narrowing. Right common iliac artery: Atherosclerotic plaque formation. Right external iliac artery: No demonstrated narrowing. Right internal iliac artery: No demonstrated narrowing. Left common iliac artery: No demonstrated narrowing. Left external iliac artery: No demonstrated narrowing. Left internal iliac artery: No demonstrated narrowing. There is evidence of anterior abdominal wall hernia repair with a mesh. Prior intrapedicular screw and chris fixation of the lower thoracic upper lumbar spine. CT/CT ANGIO ABD&PEL W/O&W/DYE IMPRESSION: Narrowing at the origin of the right renal artery of approximately 60-70%. Electronically Signed: Rickey Dumont MD at 9:09 EDT ,
[2022-04-09 08:20] LABS: CREATININE FINGERSTICK < 0.9 mg/dL (0.55-1.02); EGFR FINGERSTICK > 60.0000 mL/min (>60)
== END | disposition home or self-care (01) ==
LOC: CT 07:51
PROVIDERS: PCP Student in an Organized Health Care Education/Training Program; Referring Provider Surgery Vascular Surgery; Visit Provider Surgery Vascular Surgery
DX: Z01.812 Encounter for preprocedural laboratory examination (principal); I77.1 Stricture of artery; I65.23 Occlusion and stenosis of bilateral carotid arteries; I10 Essential (primary) hypertension; E07.9 Disorder of thyroid, unspecified
CPT/HCPCS: 74174; Q9967

== ENCOUNTER 2022-11-02 14:45 | Observation (INO) | payer MEDICARE, MEDICAID, SELFPAY ==
[2022-11-02 14:47] VITALS: BP 183/70; PULSE 84; RESP 14; TEMP 36.8; O2SAT 98; BMI 34.6
--- NOTE | 2022-11-02 15:12 | EKG12_ITS ---
Test Reason : PALPS Blood Pressure : / mmHG Vent. Rate : 077 BPM Atrial Rate : 077 BPM P-R Int : 224 ms QRS Dur : 088 ms QT Int : 378 ms P-R-T Axes : 000 012 -02 degrees QTc Int : 427 ms Sinus rhythm with sinus arrhythmia with 1st degree A-V block Otherwise normal ECG Confirmed by KALIN TURNER, KIMBERLEY ([id number]), editorial project manager ANNMARIE GANT ([id number]) on 11/03/2022 1:08:25 PM Referred By: Confirmed By:KIMBERLEY GAGNON MD
--- NOTE | 2022-11-02 15:12 | CT_ITS ---
STUDY: CT BRAIN WITHOUT CONTRAST REASON FOR EXAM: Female, 67 years old. Neuro deficit, acute; RLE weak TECHNIQUE: Transaxial CT imaging of the brain was performed without administration of intravenous contrast material. Individualized dose optimization techniques were used for this CT. COMPARISON: None FINDINGS: Normal calvarium. Normal soft tissues. Normal size ventricles and extra-axial spaces for the patient''s age. Normal white matter tracts of the cerebral hemispheres. Normal basal ganglia and thalami. Normal brainstem. Normal cerebellum. There is no intracranial hemorrhage. There is a left frontal parietal lobe acute ischemic infarction. There is sinus disease. CT/STROKE Brain/Head without Cont IMPRESSION: There is a left frontal parietal lobe acute ischemic infarction. case discussed with Asim. N.B. : The above Results were Read Back by Neymar Jimenez MD to MD asim, and understanding confirmed on 11/02/2022 15:52:13 (ET). Electronically Signed: Neymar Jimenez MD at 15:53 EST ,
--- NOTE | 2022-11-02 15:14 | ED.VIS.STROK ---
HPI History of Present Illness Chief Complaint: Lower Extremity Injury Informant: patient Onset/Context/Timing Onset: Days (2) Context: Gradual Onset Timing: Continuous Quality and Location: Positive for Right Leg Weakness Current Severity: Moderate Maximum Severity: Moderate Worsened by: nothing Relieved by: nothing Associated Symptoms Associated Symptoms: Positive for - (low back pain); Negative for Headache, Nausea, Vomiting or Chest Pain Narrative Narrative: Patient presents for right foot drop. She states she first noticed it 2 days ago. She states she has been dragging her right leg around when walking. She has had no falls or injuries. She has noticed some mild discomfort in her right low back, she denies any other symptoms. She has chronic tingling in the toes of both feet and states that really has not been any different in the last 2 days and she denies tingling/paresthesias anywhere else. No trouble speaking, no trouble understanding others, no slurring of speech, no dropping anything with her hands or having any numbness there. She is on no antiplatelets or anticoagulants and has had no history of stroke. She and the daughter state the last time she had a foot drop she needed emergency surgery on her low back apparently where she had a fusion and a disc issue. That was done by a back surgeon in [place]. [facility] Medical History Debility Diabetes mellitus Hypertension Hypothyroidism Irritable bowel syndrome Lumbar disc herniation with radiculopathy Lumbar myelopathy Lumbar radiculopathy Lumbar spinal stenosis Neuropathic pain Tobacco abuse Ulcerative colitis Vitamin D deficiency Home Medications ergocalciferol (vitamin D2) 1,250 mcg (50,000 unit) capsule 50,000 unit PO MOFR SUPPLEMENT 12/18/20 [History Last Taken 12/17/20] glimepiride 2 mg tablet 2 mg PO DINNER Blood sugar 12/18/20 [History Last Taken 12/17/20] thyroid (pork) 120 mg tablet 120 tablet PO DAILY THYROID 12/18/20 [History Last Taken 12/17/20] thyroid (pork) 120 mg tablet 240 mg PO WESA THYROID 12/18/20 [History Last Taken 12/14/20] carvedilol 6.25 mg tablet 6.25 mg PO BID Heart rate 11/02/22 [History Last Taken Unknown] cyanocobalamin (vitamin B-12) 1,000 mcg tablet 1,000 mcg PO DAILY 11/02/22 [History Last Taken Unknown] spironolactone 25 mg tablet 25 mg PO QHS 11/02/22 [History Last Taken Unknown] Allergy/AdvReac Type Severity Reaction Status Date / Time aspirin Allergy mouth Verified 11/02/22 14:47 swelling gluten Allergy Abd Verified 11/02/22 14:47 cramps/diarrhea ibuprofen Allergy mouth Verified 11/02/22 14:47 swelling Sulfa (Sulfonamide Allergy pt can't Verified 11/02/22 14:47 Antibiotics) remember Surgical History History of lumbar discectomy History of lumbar fusion Social History (Updated 11/02/22 @ 17:[address] Hermes Mirza DO) Smoking Status: Current every day smoker tobacco type: cigarettes alcohol intake: never substance use type: marijuana ROS ROS ED Constitutional Constitutional ED: Denies chills or fever(s) Eyes Eyes: Denies change in vision or diplopia ENT ENT ED: Denies rhinorrhea or sore throat Cardiovascular Cardiovascular: Denies chest pain or palpitations Respiratory/Chest Respiratory/Chest: Denies cough or dyspnea Gastrointestinal Gastrointestinal: Denies abdominal pain, diarrhea, nausea or vomiting Genitourinary Genitourinary ED: Denies dysuria or hematuria Musculoskeletal Musculoskeletal: Reports back pain; Denies neck pain Integumentary Denies abscess or rash Neurologic Neurologic: Reports as per HPI, paresthesias and weakness; Denies headache(s) Psychiatric Psychiatric: Denies anxiety or suicidal thoughts EXAM Physical Exam Const Vital Signs: 11/02/22 14:47 11/02/22 15:12 11/02/22 16:47 Temperature 98.2 F 98.1 F Temperature Source Temporal Temporal Pulse Rate 84 72 Respiratory Rate 14 16 Blood Pressure 183/70 H 156/131 H Blood Pressure Mean 107 139 Blood Pressure Source Blood Pressure Position Blood Pressure Location Pulse Ox 98 94 Oxygen Delivery Method Room Air Room Air Room Air 11/02/22 17:20 11/02/22 17:20 Temperature 99.2 F H 99.2 F H Temperature Source Oral Oral Pulse Rate 84 84 Respiratory Rate 17 17 Blood Pressure 173/121 H 173/121 H Blood Pressure Mean 138 138 Blood Pressure Source Monitor Monitor Blood Pressure Position Semi-Fowlers Semi-Fowlers Blood Pressure Location Right Arm Right Arm Pulse Ox 96 96 Oxygen Delivery Method Room Air Room Air Positive well nourished, well developed and obese General Appearance ED: well developed and NAD Nutritional Appearance: obese HEENT Reports moist mucous membranes normocephalic and atraumatic Eyes PERRL and EOMs intact bilaterally Neck full ROM and supple Resp normal respiratory effort and clear to auscultation bilaterally Cardio regular rate and regular rhythm Heart Sounds: murmur systolic II/ crescendo-decrescendo GI non-tender and non-distended Auscultation: normoactive bowel sounds Palpation: soft Back/Spine no CVA tenderness Back/Spine Narrative: Mild tenderness at the L5-S1 area in the midline. Well-healed surgical scar without any signs of infection or rash on the back. No other significant back tenderness. No limitation with regards to range of motion. General Back: other FROM Extremity normal to inspection General Extremety ED: Negative for edema, pulses abnormal or tenderness General Extremity: Negative for edema or pulses abnormal Neuro oriented x3 and CN's II-XII intact bilaterally Neuro Narrative: Weak proximally and distally in the right lower extremity with drift. She is able to dorsiflex but weak in doing so. Normal strength everywhere else. Subjective decrease sensation in toes of both feet no other sensory deficits. Normal speech, no dysarthria or aphasia. Sensorium / Orientation: awake and alert Skin no rashes or lesions noted and no wounds NIHSS NIHSS Initial: 1a Level of Consciousness: 0 1b LOC Questions (Score 2 if aphasic/stupor): 0 1c LOC Commands (Only score 1st attempt): 0 2 Best Gaze (If aphasic, use reflexive mvmts.): 0 3 Visual: 0 4 Facial Palsy: 0 5 Motor Arm Right (UN = amputation/fusion): 0 5 Motor Arm Left: 0 6 Motor Leg Right: 1 6 Motor Leg Left: 0 7 Limb ataxia (Only + if out of proportion): 0 8 Sensory (Aphasia/stupor=0 or 1, coma=2): 1 9 Best Language: 0 10 Dysarthria (mute, coma=2, intubated=UN): 0 11 Extinction and Inattention (only scored if +): 0 Total Score: 2 MDM MDM MDM Narrative Medical decision making narrative: With this patient having her entire right lower extremity involved in her weakness, along with symmetric reflexes, along with risk factors for vascular disease especially diabetes, hypertension, smoking heavily, and the fact that her blood pressure is elevated right now at 183/70, stroke is in the differential diagnosis as is lower back/radicular issues. She does not require x-rays of the foot which she suggested upon arrival. A CT of the head was obtained, and in fact shows a left frontal/parietal lobe acute ischemic infarct consistent with right lower extremity weakness. I reviewed these images. My interpretation of the CT agrees with that of the radiologist. I also reviewed three-view x-ray series of the lumbar spine obtained, that show intact hardware nothing acute. Radiology in agreement. She is in sinus rhythm here. Blood work unremarkable. Plan is for admission. Discussed with hospitalist for PCU admission. Lab Data Attestation: I reviewed the patient's lab results. Labs: Laboratory Results - last 24 hr 11/02/22 11/02/22 11/02/22 15:28 15:28 15:28 WBC 13.9 H RBC 4.97 Hgb 15.3 H Hct 45.5 MCV 91.5 MCH 30.8 MCHC 33.6 RDW Std Deviation 44.0 H RDW Coeff of Neida 13.1 Plt Count 381 MPV 10.1 Immature Gran % (Auto) 0.500 Neut % (Auto) 70.6 H Lymph % (Auto) 20.1 Jones % (Auto) 6.7 Eos % (Auto) 1.7 Baso % (Auto) 0.4 Absolute Neuts (auto) 9.8 H Absolute Lymphs (auto) 2.79 Nucleated RBC % 0 PT 12.9 INR 1.0 APTT 29.8 Sodium 140 Potassium 3.6 Chloride 107 Carbon Dioxide 26.0 Anion Gap 7 BUN 16 Creatinine 0.58 Estim Creat Clear Calc 39.21 Est GFR (MDRD) Af Amer 133 Est GFR (MDRD) Non-Af 110 BUN/Creatinine Ratio 27.4 H Glucose 163 H Calcium 10.1 Troponin I High Sens 10 Radiography Diagnostic Testing: Clinical Impression(s) from Imaging Studies Brain CT 11/02/22 15:12 IMPRESSION: There is a left frontal parietal lobe acute ischemic infarction. case discussed with Barone. King : The above Results were Read Back by Neymar Jimenez MD to MD asim, and understanding confirmed on 11/02/2022 15:52:13 (ET). Electronically Signed: Neymar Jimenez MD at 15:53 EST , ADDENDUM: 11/02/22 1600 IMPRESSION: There is a left frontal parietal lobe acute ischemic infarction. case discussed with Barone. Davila. : The above Results were Read Back by Neymar Jimenez MD to MD asim, and understanding confirmed on 11/02/2022 15:52:13 (ET). Electronically Signed: Neymar Jimenez MD at 15:53 EST , Lumbar Spine X-Ray 11/02/22 16:00 IMPRESSION: Degenerative changes of the spine, as detailed above. Electronically Signed: Neymar Jimenez MD at 16:29 EST , Rhythm Strip Rhythm Strip: Sinus Rhythm Rate: 75 Ectopy: None EKG Initial EKG: Attestation: I personally reviewed and interpreted this EKG as follows: Interpretation: Sinus Rhythm, No Acute Injury Pattern and AV Block (1st deg) Prior: No Prior Stroke Documentation Questions Stroke Team Activated: No (timing > 24h) Was Patient considered for Endovascular Intervention?: No-CTA not indicated IV Thrombolytic Administered: No (timing of sx) Discharge Plan Dx/Rx/DC Orders Clinical Impression: 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 Disposition Disposition: Acute Care Hospital [facility] Discharge Date/Time: 11/02/22 17:12
[2022-11-02 15:49] LABS: Partial Thromboplast Time 29.8 Seconds (24.1-36.2); Prothrombin Time (Protime)PT. 12.9 SECONDS (11.7-14.9)
[2022-11-02 16:00] LABS: Anion Gap 7 (5-15); BUN 16 mg/dL (7-18); BUN/Creat Ratio 27.4 RATIO (10-20); Calcium,Total 10.1 mg/dL (8.5-10.1); Chloride 107 mmol/L (98-107); Creatinine, Serum 0.58 mg/dL (0.55-1.02); EST Glomerular Filtration Rate 110 mL/min (>60); Est Glom Filt Rate - Afr Amer 133 mL/min (>60); Estimated Creatinine Clearance 39.21 ml/min; Glucose 163 mg/dL (74-106); Potassium 3.6 mmol/L (3.5-5.1); Sodium Level 140 mmol/L (136-145); Troponin-I HS 10 pg/mL (3.0-54.0)
--- NOTE | 2022-11-02 16:00 | RAD_ITS ---
STUDY: X-RAY - LUMBAR SPINE REASON FOR EXAM: Female, 67 years old. pain TECHNIQUE: XR Spine Lumbar 2 or 3 Views COMPARISON: 4.7. mri FINDINGS: Normal lumbar lordosis. There is no substantial scoliosis. There is a Grade 1 retrolisthesis of L1 on L2 and L2 on L3. Spinal hardware at L1 and L2. There is multilevel endplate spondylosis of the lumbar vertebrae. There is multi-level degenerative disc disease with multi-level disc space narrowing. There are atherosclerotic vascular calcifications. The soft tissue structures are unremarkable. RAD/Lumbar Spine 2 or 3 Views IMPRESSION: Degenerative changes of the spine, as detailed above. Electronically Signed: Neymar Jimenez MD at 16:29 EST ,
[2022-11-02 16:30] LABS: Absolute Lymphocyte Count 2.79 X10^3/uL (0.83-4.51); Absolute Neutrophil Count 9.8 X10^3/uL (2.0-7.7); Basophil# 0.06 X10^3/uL; Basophil% 0.4 % (0-1); Eosinophil# 0.24 X10^3/uL; Eosinophils% 1.7 % (0-5); Hematocrit 45.5 % (37-47); Hemoglobin 15.3 g/dL (12.0-15.0); Lymphocyte # 2.79 X10^3/ul (0.83-4.51); Lymphocyte % 20.1 % (19-41); Mean Corp Hgb Conc 33.6 g/dL (32-36); Mean Corpuscular Hgb 30.8 pg (27.0-32.0); Mean Corpuscular Volume 91.5 fL (81-99); Mean Platelet Vol. 10.1 fl (6.2-12.0); Monocyte# 0.93 X10^3/uL; Monocyte% 6.7 % (0-10); NRBC Flagged by Analyzer 0 % (0-5); Neutrophil # 9.79 X10^3/uL (2.7-7.7); Neutrophil % 70.6 % (47-70); Platelet Count 381 K/mm3 (150-450); RBC Distribution Width CV 13.1 % (11.6-14.6); Red Blood Count 4.97 M/mm3 (4.2-5.4); White Blood Count 13.9 K/mm3 (4.4-11.0)
[2022-11-02 16:47] VITALS: BP 156/131; PULSE 72; RESP 16; TEMP 36.7; O2SAT 94
--- NOTE | 2022-11-02 16:50 | NURSING ---
SHERLYN GAMBINO ACUTE ISCHEMIC STROKE
[2022-11-02 17:20] VITALS: BP 173/121; PULSE 84; RESP 17; TEMP 37.3; O2SAT 96
[2022-11-02 17:26] VITALS: BMI 34.7
--- NOTE | 2022-11-02 17:33 | HP.PCM.HOS_ITS ---
HPI - General General Date of Admission: 11/02/22 Date of Service: 11/02/22 Chief Complaint: Right leg weakness HPI Narrative LEIDY AMADO, is a 67 F who presents with right leg weakness. Symptoms began today but can wax and wane. Had similar symptoms when she required emergent surgery on her back due to herniated disc. Presented emergency room where she had an x-ray of her back that showed good alignment but CAT scan read showed a left frontal parietal lobe acute ischemic infarct. Patient stated that earlier when she was at the store, she had a headache but that is since resolved. Patient has never had a stroke before [facility] Medical History Debility Diabetes mellitus Hypertension Hypothyroidism Irritable bowel syndrome Lumbar disc herniation with radiculopathy Lumbar myelopathy Lumbar radiculopathy Lumbar spinal stenosis Neuropathic pain Tobacco abuse Ulcerative colitis Vitamin D deficiency Home Medications ergocalciferol (vitamin D2) 1,250 mcg (50,000 unit) capsule 50,000 unit PO MOFR SUPPLEMENT 12/18/20 [History Last Taken 12/17/20] glimepiride 2 mg tablet 2 mg PO DINNER Blood sugar 12/18/20 [History Last Taken 12/17/20] thyroid (pork) 120 mg tablet 120 tablet PO DAILY THYROID 12/18/20 [History Last Taken 12/17/20] thyroid (pork) 120 mg tablet 240 mg PO WESA THYROID 12/18/20 [History Last Taken 12/14/20] carvedilol 6.25 mg tablet 6.25 mg PO BID 11/02/22 [History Last Taken Unknown] cyanocobalamin (vitamin B-12) 1,000 mcg tablet 1,000 mcg PO DAILY 11/02/22 [History Last Taken Unknown] spironolactone 25 mg tablet 25 mg PO QHS 11/02/22 [History Last Taken Unknown] Allergy/AdvReac Type Severity Reaction Status Date / Time aspirin Allergy mouth Verified 11/02/22 14:47 swelling gluten Allergy Abd Verified 11/02/22 14:47 cramps/diarrhea ibuprofen Allergy mouth Verified 11/02/22 14:47 swelling Sulfa (Sulfonamide Allergy pt can't Verified 11/02/22 14:47 Antibiotics) remember Surgical History History of lumbar discectomy History of lumbar fusion Social History (Updated 11/02/22 @ 17:[address] Hermes Mirza DO) Smoking Status: Current every day smoker tobacco type: cigarettes alcohol intake: never substance use type: marijuana ROS ROS Narrative No changes in speech. Does get left thigh blurry vision when she wakes up in the mornings but that gets better over the day. No right upper extremity concerns. No bowel or bladder incontinence. All review of systems were negative except as mentioned above in the history of present illness and the other review of systems. Vital Signs Vital Signs Vital Signs: 11/02/22 14:47 11/02/22 15:12 11/02/22 16:47 Temperature 36.8 C 36.7 C Temperature Source Temporal Temporal Pulse Rate 84 72 Respiratory Rate 14 16 Blood Pressure 183/70 H 156/131 H Blood Pressure Mean 107 139 Pulse Ox 98 94 Oxygen Delivery Method Room Air Room Air Room Air Weight Weight: 80.6 kg Body Mass Index (BMI) 34.7 Physical Exam Narrative - Physical Exam General: Alert, Oriented x3, Cooperative HEENT: Atraumatic, PERRLA, EOMI, Normocephalic Oral: Moist Mucosa, No Gingival or Mucosal Lesions/ Ulcerations Neck: Supple, No JVD, Negative Carotid Bruits Lungs: Clear to auscultation, Normal air movement Cardiovascular: Regular rate, Normal S1, Normal S2, No murmurs Abdomen: Bowel Sounds Present, Soft, Non Tender, Non-Distended, No Hepato-splenomegaly Extremities: No clubbing, No cyanosis, No edema, Capillary Refill Less than 3 Seconds Skin: No rashes, No breakdown Musculoskeletal: No Tenderness to Palpation of Joints or Extremities Neurological: Neuro grossly intact. Current nerves II through XII grossly intact. Muscle strength 5-5 in upper and lower extremities bilaterally though slightly less in the right upper extremity. Finger-nose and [id number] grossly intact. Sensation grossly intact. Psych/Mental Status: Normal Affect, Appropriate Results Lab / Micro Data Attestation: I reviewed the patient's lab results. Result Diagrams: 11/02/22 15:28 11/02/22 15:28 Labs: Laboratory Results - last 24 hr 11/02/22 15:28: WBC 13.9 H, RBC 4.97, Hgb 15.3 H, Hct 45.5, MCV 91.5, MCH 30.8, MCHC 33.6, RDW Std Deviation 44.0 H, RDW Coeff of Neida 13.1, Plt Count 381, MPV 10.1, Immature Gran % (Auto) 0.500, Neut % (Auto) 70.6 H, Lymph % (Auto) 20.1, Ripley % (Auto) 6.7, Eos % (Auto) 1.7, Baso % (Auto) 0.4, Absolute Neuts (auto) 9.8 H, Absolute Lymphs (auto) 2.79, Nucleated RBC % 0 11/02/22 15:28: PT 12.9, INR 1.0, APTT 29.8 11/02/22 15:28: Sodium 140, Potassium 3.6, Chloride 107, Carbon Dioxide 26.0, Anion Gap 7, BUN 16, Creatinine 0.58, Estim Creat Clear Calc 39.21, Est GFR (MDRD) Af Amer 133, Est GFR (MDRD) Non-Af 110, BUN/Creatinine Ratio 27.4 H, Glucose 163 H, Calcium 10.1, Troponin I High Sens 10 Rhythm Strip Rhythm Strip: Sinus Rhythm Rate: 75 Ectopy: None EKG Initial EKG: Attestation: I personally reviewed and interpreted this EKG as follows: Prior EKG tracings: available for review EKG Rhythm Intrepretation: Sinus Rhythm and 1st Degree AVB Radiology Impression Brain CT 11/02/22 15:12 IMPRESSION: There is a left frontal parietal lobe acute ischemic infarction. case discussed with Barone. Davila. : The above Results were Read Back by Neymar Jimenez MD to MD asim, and understanding confirmed on 11/02/2022 15:52:13 (ET). Electronically Signed: Neymar Jimenez MD at 15:53 EST , ADDENDUM: 11/02/22 1600 IMPRESSION: There is a left frontal parietal lobe acute ischemic infarction. case discussed with Barone. King : The above Results were Read Back by Neymar Jimenez MD to MD asim, and understanding confirmed on 11/02/2022 15:52:13 (ET). Electronically Signed: Neymar Jimenez MD at 15:53 EST , Lumbar Spine X-Ray 11/02/22 16:00 IMPRESSION: Degenerative changes of the spine, as detailed above. Electronically Signed: Neymar Jimenez MD at 16:29 EST , Assessment & Plan Assessment/Plan (1) 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: PLAN: Acute Patient with multiple risk factors including smoking tobacco and marijuana. Patient states that she has a marijuana card. I told her that she may want to consider edibles but she states that people the prescriber told her that there concern about her liver and kidney with the edibles as compared to smoking it. Told him unaware of that side effect with THC but recommended she stop smoking everything altogether but she can work with her primary care team in regards to tobacco cessation and marijuana specialist in regards to change her over to edibles or trying something else in instead of smoking marijuana. Testing: MRI of the brain in 2d echocardiogram. Lipid panel morning Patient has an aspirin allergy so we will initiate clopidogrel PLAN: Plan Chronic conditions: * Smoking: Tobacco and marijuana. Recommend cessation. Patient has cut back from 1/2 packs of cement cigarettes today to half pack now. Told her it is to help set goals when she is discharged to try to quit tobacco. Patient does get a medical marijuana card and gets her marijuana from a physician apparently. She can work with here she about either utilizing something else or using a different formulation of marijuana * Celiac disease: Stable * Hypertension: Monitor * Diabetes mellitus type 2 sliding-scale and glyburide * hypothyroidism: Patient can continue with her pork thyroid. She can bring that in. VTE prophylaxis: Not indicated given current observation status. Charges/Coding Visit Charges Inpatient E&M: 53558 Init Hosp L3
[2022-11-02 17:35] VITALS: BMI 34.7
--- NOTE | 2022-11-02 17:52 | MRI_ITS ---
EXAM: MR HEAD WITHOUT INTRAVENOUS CONTRAST CLINICAL INDICATION: CVA. TECHNIQUE: Multiplanar and multisequence MR images of the brain were obtained without intravenous contrast. This report was created using [employer] report generation technology. COMPARISON: CT head without contrast 11/02/2022. FINDINGS: BRAIN AND EXTRA-AXIAL SPACES: Abnormal diffusion restriction involving the left superior frontal gyrus, left pre and postcentral gyri convexity and a small portion of the posterior aspect of the left middle frontal gyrus. This is also visible on the T2 FLAIR sequence and is consistent with subacute ischemic infarction. No intra- or extra-axial hemorrhage. No intracranial mass or mass effect. Posterior fossa structures are unremarkable. Ventricles are appropriate for age. No hydrocephalus. Basal cisterns are patent. SELLA: Unremarkable. Normal sella turcica, pituitary gland, infundibular stalk, optic chiasm and hypothalamus. AUDITORY SYSTEM: Unremarkable. The internal auditory canals are patent. BONES/JOINTS: Unremarkable. No discrete lytic or blastic abnormalities. SINUSES: Unremarkable as visualized. Clear. MASTOID AIR CELLS: Unremarkable as visualized. Clear. ORBITS: Unremarkable as visualized. Both globes, extraocular muscles, optic nerves and retrobulbar fat appear unremarkable. VASCULATURE: Unremarkable as visualized. Normal flow voids in the major intracranial circulation. MRI/Brain without Contrast IMPRESSION: Subacute cortical gyral ischemic infarctions in the left superior frontal gyrus more than the left pre and postcentral gyri and the posterior aspect of the left middle frontal gyrus. This correlates with the hypodense ischemic infarction in the left frontal lobe seen on CT head scan of 11/02/2022. Electronically Signed: Chano Jenkins MD at 9:46 EST ,
--- NOTE | 2022-11-02 17:52 | ECHOD_ITS ---
Reason For Study: TIA/CVA Procedure This was a 2D Doppler, Color Flow transthoracic echocardiogram. Exam performed portable in patient room. Left Ventricle Normal LV size. Moderate concentric left ventricular hypertrophy. Left ventricular systolic function is normal. The estimated ejection fraction is 60 %. Stage 1 diastolic dysfunction. No regional wall motion abnormalities noted. Right Ventricle Normal RV size. Normal systolic function. Atria Normal left atrium. Normal right atrium. Bubble contrast study negative for right to left interatrial shunt. Mitral Valve There is mild mitral annular calcification. Trivial eccentric mitral valve insufficiency. Tricuspid Valve Normal tricuspid valve. Aortic Valve Trisinus/trileaflet aortic valve. Mild focal aortic valve calcification. Peak aortic valve gradient 24 mmHg. Mean aortic valve gradient 12 mmHg. Mild aortic stenosis. Pulmonic Valve Normal pulmonic valve. Great Vessels Normal aortic root. The pulmonary artery is normal size. Normal inferior vena cava. Pericardium/Pleural No pericardial effusion. Medication Performed a rapid injection of agitated mix of 9 cc saline and 1cc air to assess for atrial septal defect. MMode/2D Measurements & Calculations LVIDd: 4.1 cm IVSd: 1.4 cm LVOT diam: 2.0 cm LVIDs: 2.4 cm LVPWd: 1.5 cm FS: 42.6 % LVOT area: 3.1 cm2 Ao root diam: 2.9 cm LAV(MOD-bp): 42.9 ml LA A4 area: 16.6 cm2 LA dimension: 3.4 cm LAV(MOD-bp) Indexed: 24.2 ml/m2 LAV(MOD-sp2): 42.0 ml LAV(MOD-sp4): 38.0 ml RA A4 area: 14.9 cm2 Time Measurements MV dec time: 0.21 sec Doppler Measurements & Calculations MV E max narendra: 79.8 cm/sec Lat Peak E' Narendra: 6.1 cm/sec Med Peak E' Narendra: 6.3 cm/sec MV A max narendra: 91.7 cm/sec E/E' lat: 13.1 E/E' med: 12.8 MV E/A: 0.87 MV V2 max: 103.0 cm/sec MV P1/2t max narendra: 89.8 cm/sec Ao V2 max: 246.2 cm/sec MV max P.2 mmHg MV P1/2t: 69.7 msec Ao max P.3 mmHg MV V2 mean: 53.7 cm/sec MV dec slope: 377.1 cm/sec2 Ao V2 mean: 163.9 cm/sec MV mean P.4 mmHg Ao mean P.2 mmHg MV V2 VTI: 28.8 cm MVA(P1/2t): 3.2 cm2 Ao V2 VTI: 52.2 cm MVA(VTI): 2.9 cm2 AV (velocity ratio): 0.52 GREG(I,D): 1.6 cm2 GREG(V,D): 1.3 cm2 LV V1 max: 101.4 cm/sec SV(LVOT): 84.2 ml PA V2 max: 92.2 cm/sec LV V1 max P.1 mmHg PA V2 mean: 64.8 cm/sec LV V1 mean P.3 mmHg LV V1 mean: 70.4 cm/sec LV V1 VTI: 27.2 cm ECHO/Echo Complete Interpretation Summary Normal LV size. Moderate concentric left ventricular hypertrophy. Left ventricular systolic function is normal. The estimated ejection fraction is 60 %. Stage 1 diastolic dysfunction. Mild aortic stenosis. Mean aortic valve gradient 12 mmHg. Ordering Physician: Hermes Mirza Performed By: Nick Chambers RCS
[2022-11-02] MEDS: Clopidogrel Bisulfate 75 MG Tablet PO (18:34)
[2022-11-02 18:35] LABS: Bedside Glucose 137 mg/dL (74-106)
[2022-11-02 18:54] LABS: Troponin-I HS 12 pg/mL (3.0-54.0)
[2022-11-02 21:47] VITALS: O2SAT 95
[2022-11-02 21:57] VITALS: BP 149/64; PULSE 73; RESP 18; TEMP 36.8; O2SAT 95
[2022-11-02] MEDS: 0.9% Saline Lock 10 ML Syringe IV (22:12)
[2022-11-02] MEDS: Spironolactone 25 MG Tablet PO (22:12)
[2022-11-02] MEDS: Atorvastatin Calcium 80 MG Tablet PO (22:12)
[2022-11-02 23:40] LABS: Bedside Glucose 202 mg/dL (74-106)
[2022-11-03] VITALS (9 sets, daily range): BP systolic 115–184; BP diastolic 52–96; PULSE 61–75; RESP 16–18; TEMP 36.6–36.8; O2SAT 94–100; BMI 34.7
[2022-11-03] MEDS: Thyroid 60 MG Tablet 120 MG PO (05:37)
[2022-11-03 07:10] LABS: Bedside Glucose 181 mg/dL (74-106)
[2022-11-03 07:17] LABS: Cholesterol 183 mg/dL (200); High Density Lipoprotein 55 mg/dL; Triglycerides 146 mg/dL; Very Low Density Lipoprotein 29 mg/dL (5-40)
--- NOTE | 2022-11-03 10:30 | CASEMGMT ---
OLVIN CM Face to Face with patient for initial transition planning/care coordination assessment. RN CM introduced self and role at [facility]. Patient lying in bed, alert and oriented, daughter at bedside. Patient willing to participate in assessment and is able to answer all questions appropriately. Care providers, pharmacy, and demographics verified. Patient wishes to discharge home with outpatient therapy. RN CM will assist in obtaining script for outpatient therapy at discharge. Patient states she has no further needs or concerns at this time. CM to follow for discharge planning needs that may arise. PCP: Charan Specialists: Tian wolf hunter Preferred Pharmacy: [facility] Insurance: [facility] Dual Prescription Benefit: yes Living Will/HPOA: yes, daughter Zoey Blanco LNOK: daughter, sister Living Arrangements: Patient lives alone in a 2 story with bed and bath on first floor, 3 steps and railing to enter the home. Patient states she is independent at home. Transportation: self, daughter DME/HHC: Patient has grab bars at home. Patient has been to [facility] in the past. Patient smokes 1/2 PPD cigarettes and 3 marijuana joints per week. Patient declined resources for quitting. Disposition Plan: Patient to discharge home with outpatient therapy, family support, and follow-up plans in place. Kathy RAMOS, RN, CM
--- NOTE | 2022-11-03 10:35 | CT_ITS ---
We are attempting to reach an attending provider to discuss findings. An addendum with communication details will be sent when the communication is complete. STUDY: CTA HEAD AND NECK WITH CONTRAST REASON FOR EXAM: Female, 67 years old. Acute CVA RADIATION DOSAGE (If Supplied By Facility): CTDIvol = ( 27.20 ) mGy, DLP = ( 1517.43 ) mGycm TECHNIQUE: CT angiography was performed with a multi-detector CT scanner. Data acquisition was obtained from the skull base through the vertex following intravenous administration of IV 100mL Isovue-370. MIP images were reconstructed from the axial data set. Post-processing of the angiographic images was performed, with multiplanar reformation and 3D reconstruction. Individualized dose optimization techniques were used for this CT. COMPARISON: No relevant priors. FINDINGS: Normal petrous segments of the right internal carotid artery. Complete occlusion of the petrous segments of the left internal carotid artery.. Nonocclusive calcified plaques along the cavernous segments of the right internal carotid artery with a normal right supraclinoid bifurcation. Complete occlusion along the cavernous segments of the left internal carotid artery. Small left supraclinoid internal carotid artery is retrograde collateral flow coming from patent left posterior communicating artery. Normal right A1 segment of the anterior cerebral artery. No visible left A1 segment of the anterior cerebral artery. Normal intact anterior communicating artery (ACOM). Normal bilateral A2 segments of the anterior cerebral arteries. Normal right M1 and M2 segments of the middle cerebral arteries, with a normal M1 bifurcation. Abnormality small left M1 and M2 segments of the middle cerebral arteries within normal left M1 bifurcation but abnormal M3 and M4 segments in the left frontal convexity. They correspond to the distal occlusion and infarction of the left superior frontal gyrus more than the left middle frontal gyrus and the left central lobe convexity. Normal right posterior communicating artery (PCOM). Normal left posterior communicating artery (PCOM). Normal bilateral vertebral arteries. Normal basilar artery with a normal basilar bifurcation. The visualized bilateral superior cerebellar (SCA) arteries are normal. Normal bilateral P1, P2 and visualized P3 segments of the posterior cerebral arteries. There is no demonstrated aneurysm of the [place] of [place]. Abnormal subacute cortical gyral ischemic infarcts involving the left superior frontal gyrus more than the posterior left middle frontal gyrus and the left central lobe convexity. AORTIC ARCH: Normal visualized aortic arch. Normal origins of the brachiocephalic, left common carotid, and left subclavian arteries. RIGHT CAROTID ARTERIES: Normal right common carotid artery (CCA). Calcified plaques without significant stenosis along the right carotid bulb. Minimal calcified plaque at the origin of the right internal carotid (ICA) artery without a hemodynamically significant stenosis. Normal visualized cervical portion of the right internal carotid artery. Normal origin of the right external carotid artery (ECA). LEFT CAROTID ARTERIES: Normal left common carotid artery (CCA). Complete occlusion of the left carotid bulb. Complete occlusion of the entire left cervical internal carotid artery. High-grade stenosis at the origin of the left external carotid artery (ECA). VERTEBRAL ARTERIES: High-grade stenosis at the subclavian origins of both vertebral arteries. The left vertebral artery is dominant. Normal cervical segments and intradural segments of the vertebral arteries. CT/STROKE CTA Head AND Neck W/Con IMPRESSION: 1. Complete occlusion of the left cervical internal carotid artery, petrous segments and cavernous segments of the left internal carotid artery. 2. Occluded M3 and M4 branches feeding the left frontal lobe. This distal thromboembolic occlusion accounts for the subacute cortical gyral ischemic infarcts involving the left superior frontal gyrus more than the left posterior middle frontal gyrus and the left central lobe convexity. 3. Adaptive narrowing of the left supraclinoid internal carotid artery, left M1 segment, left M2 segments of the left M1 bifurcation with collateral flow coming from patent left posterior communicating artery. No collateral flow from the right carotid to the left supraclinoid internal carotid artery due to developmentally absent left A1 segment. 4. No other suspicious significant vaso-occlusive disease of the anterior and posterior intracranial circulation. 5. Widely patent right common carotid artery and right cervical internal carotid artery. 6. High-grade stenosis at the subclavian origins of both vertebral arteries due to noncalcified plaques. The remaining segments of both vertebral arteries are widely patent. 7. Normal aortic arch and origins of the great vessels. Electronically Signed: Chano Jenkins MD at 11:50 EST ,
--- NOTE | 2022-11-03 10:36 | TELEMED_ITS ---
[facility] Tele[facility] has confirmed receipt of a request for visit. This document confirms receipt of the order initiating the consult. To find the results of the consultation, please view the patient's reports for the scanned Telemed Consult.
[2022-11-03] MEDS: Ergocalciferol 1.25 MG (50, 000 UNIT) Capsule PO (11:39)
[2022-11-03] MEDS: Cyanocobalamin 500 MCG Tablet 1000 MCG PO (11:39)
[2022-11-03] MEDS: Carvedilol 6.25 MG Tablet PO ×2 (11:39→21:37)
[2022-11-03] MEDS: Clopidogrel Bisulfate 75 MG Tablet PO (11:39)
--- NOTE | 2022-11-03 11:45 | NURSING ---
Meds given late due to pt off floor at testing.
[2022-11-03 12:45] LABS: Bedside Glucose 202 mg/dL (74-106)
[2022-11-03] MEDS: Insulin Lispro 100 UNIT/ML INSULN.PEN SC (14:27)
--- NOTE | 2022-11-03 15:40 | PN.HOSP_ITS ---
Subjective Subjective Patient seen and examined. She had no active complaints. She denied any mouth droop, weakness in arm or leg or tingling or numbness. Review of systems is otherwise negative. Objective Data Objective Data Vital Signs: Vital Signs Temp Pulse Resp BP Pulse Ox O2 Del Method 98.0 F 67 16 157/52 H 99 Room Air 11/03/22 11:37 11/03/22 11:37 11/03/22 11:37 11/03/22 11:37 11/03/22 11:37 11/03/22 14:00 Oxygen Delivery Method Room Air Weight: 177 lb 11.081 oz Body Mass Index (BMI) 34.7 Intake & Output: Intake and Output for Last 24 Hours 11/01/22 11/02/22 11/03/22 23:59 23:59 23:59 Intake Total 100 / 100 Balance 100 / 100 Lab / Micro Data Result Diagrams: 11/02/22 15:28 11/02/22 15:28 Labs: Laboratory Results - last 24 hr 11/02/22 15:28: WBC 13.9 H, RBC 4.97, Hgb 15.3 H, Hct 45.5, MCV 91.5, MCH 30.8, MCHC 33.6, RDW Std Deviation 44.0 H, RDW Coeff of Neida 13.1, Plt Count 381, MPV 10.1, Immature Gran % (Auto) 0.500, Neut % (Auto) 70.6 H, Lymph % (Auto) 20.1, Owen % (Auto) 6.7, Eos % (Auto) 1.7, Baso % (Auto) 0.4, Absolute Neuts (auto) 9.8 H, Absolute Lymphs (auto) 2.79, Nucleated RBC % 0 11/02/22 15:28: PT 12.9, INR 1.0, APTT 29.8 11/02/22 15:28: Sodium 140, Potassium 3.6, Chloride 107, Carbon Dioxide 26.0, Anion Gap 7, BUN 16, Creatinine 0.58, Estim Creat Clear Calc 39.21, Est GFR (MDRD) Af Amer 133, Est GFR (MDRD) Non-Af 110, BUN/Creatinine Ratio 27.4 H, Glucose 163 H, Calcium 10.1, Troponin I High Sens 10 11/02/22 17:49: POC Glucose 137 H 11/02/22 18:14: Troponin I High Sens 12 11/02/22 22:18: POC Glucose 202 H 11/03/22 06:30: Triglycerides 146, Cholesterol 183, LDL Cholesterol 99, VLDL Cholesterol 29, HDL Cholesterol 55 11/03/22 06:30: Hemoglobin A1c 7.0 H 11/03/22 06:42: POC Glucose 181 H 11/03/22 11:48: POC Glucose 202 H Radiography Diagnostic Testing: Radiology Impression Brain CT 11/02/22 15:12 IMPRESSION: There is a left frontal parietal lobe acute ischemic infarction. case discussed with Barone. Davila. : The above Results were Read Back by Neymar Jimenez MD to MD asim, and understanding confirmed on 11/02/2022 15:52:13 (ET). Electronically Signed: Neymar Jimenez MD at 15:53 EST , ADDENDUM: 11/02/22 1600 IMPRESSION: There is a left frontal parietal lobe acute ischemic infarction. case discussed with NJay. : The above Results were Read Back by Neymar Jimenez MD to MD asim, and understanding confirmed on 11/02/2022 15:52:13 (ET). Electronically Signed: Neymar Jimenez MD at 15:53 EST , Lumbar Spine X-Ray 11/02/22 16:00 IMPRESSION: Degenerative changes of the spine, as detailed above. Electronically Signed: Neymar Jimenez MD at 16:29 EST , Brain MRI 11/02/22 17:52 IMPRESSION: Subacute cortical gyral ischemic infarctions in the left superior frontal gyrus more than the left pre and postcentral gyri and the posterior aspect of the left middle frontal gyrus. This correlates with the hypodense ischemic infarction in the left frontal lobe seen on CT head scan of 11/02/2022. Electronically Signed: Chano Jenkins MD at 9:46 EST , Echocardiogram 11/02/22 17:52 Interpretation Summary Normal LV size. Moderate concentric left ventricular hypertrophy. Left ventricular systolic function is normal. The estimated ejection fraction is 60 %. Stage 1 diastolic dysfunction. Mild aortic stenosis. Mean aortic valve gradient 12 mmHg. Ordering Physician: Hermes Mirza Performed By: Nick Chambers RCS Head/Neck CTA 11/03/22 10:35 IMPRESSION: 1. Complete occlusion of the left cervical internal carotid artery, petrous segments and cavernous segments of the left internal carotid artery. 2. Occluded M3 and M4 branches feeding the left frontal lobe. This distal thromboembolic occlusion accounts for the subacute cortical gyral ischemic infarcts involving the left superior frontal gyrus more than the left posterior middle frontal gyrus and the left central lobe convexity. 3. Adaptive narrowing of the left supraclinoid internal carotid artery, left M1 segment, left M2 segments of the left M1 bifurcation with collateral flow coming from patent left posterior communicating artery. No collateral flow from the right carotid to the left supraclinoid internal carotid artery due to developmentally absent left A1 segment. 4. No other suspicious significant vaso-occlusive disease of the anterior and posterior intracranial circulation. 5. Widely patent right common carotid artery and right cervical internal carotid artery. 6. High-grade stenosis at the subclavian origins of both vertebral arteries due to noncalcified plaques. The remaining segments of both vertebral arteries are widely patent. 7. Normal aortic arch and origins of the great vessels. Electronically Signed: Chano Jenkins MD at 11:50 EST , ADDENDUM: 11/03/22 1214 IMPRESSION: 1. Complete occlusion of the left cervical internal carotid artery, petrous segments and cavernous segments of the left internal carotid artery. 2. Occluded M3 and M4 branches feeding the left frontal lobe. This distal thromboembolic occlusion accounts for the subacute cortical gyral ischemic infarcts involving the left superior frontal gyrus more than the left posterior middle frontal gyrus and the left central lobe convexity. 3. Adaptive narrowing of the left supraclinoid internal carotid artery, left M1 segment, left M2 segments of the left M1 bifurcation with collateral flow coming from patent left posterior communicating artery. No collateral flow from the right carotid to the left supraclinoid internal carotid artery due to developmentally absent left A1 segment. 4. No other suspicious significant vaso-occlusive disease of the anterior and posterior intracranial circulation. 5. Widely patent right common carotid artery and right cervical internal carotid artery. 6. High-grade stenosis at the subclavian origins of both vertebral arteries due to noncalcified plaques. The remaining segments of both vertebral arteries are widely patent. 7. Normal aortic arch and origins of the great vessels. N.B. : The above Results were Read Back by Chano Jenkins MD to Gladys Quezada RN, and understanding confirmed on 11/03/2022 12:07:08 (ET). Electronically Signed: Chano Jenkins MD at 11:50 EST Reading Location ID and State: [facility] / [place] , Service support , Rhythm Strip Rhythm Strip: Sinus Rhythm Rate: 75 Ectopy: None Physical Exam Const alert, oriented x3 and no apparent distress HEENT head/scalp atraumatic, moist oral mucous membranes and oropharynx normal Head and Scalp: normocephalic Mouth: oral and palatal mucosa normal Eyes PERRL, EOMs intact bilaterally and conjunctivae normal Neck no lymphadenopathy and supple Resp normal respiratory effort, no retractions, no use of accessory muscles and clear to auscultation bilaterally Cardio regular rate, regular rhythm, S1 normal heart sound, S2 normal heart sound and no murmurs GI normal to inspection, nondistended, normoactive bowel sounds, soft to palpation, non-tender and non-distended Extremity normal to inspection, full ROM and no clubbing, cyanosis or edema Neuro oriented x3, CN's II-XII intact bilaterally, moves all extremities and no focal motor deficits Sensorium / Orientation: awake and alert Motor Exam: strength 5/5 throughout Psych affect normal Assessment & Plan Assessment/Plan (1) 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: PLAN: Plan #Acute CVA * denies RLE weakness. * CT brain showed a left frontal parietal love with acute ischemic infarct * MRi showed subacute cortical gyral ischemic infarctions int eh left superior frontal gyrus more than the left pre and postcentral gyri and posterior aspect of the left middle frontal gyrus * CTA head and neck showed complete occlusion of the left internal carotid arter y, and high grade stenosis at the subclavian originis of both vertebral arteries due to noncalcified plaques * on plavix and high intensity statin. * patient allergic to aspirin * [facility] neurology consulted; appreciate rec's * 2D echo showed normal LV size, with moderate concentric LV hypertrophy and LVS F with EF of 60% and stage 1 diastolic function, with mild aortic stenosis. * #Hypertension * BP markedly elevated. BP meds on hold to allow for permissive hypertension * #Hypothyroidism: on synthroid #Diabetes mellitus * A1C is 7 * on glimepiride. * ISS. Accuchecks ACHS * #Nicotine dependence: counseled to quit. Nicotine patch 21mg daily. DVT prophylaxis: lovenox Charges/Coding Visit Charges Inpatient E&M: 05181 Subs Hosp L2 Reason for Visit Reason for Visit: Diagnoses Cerebral infarction, unspecified (11/02/22)
[2022-11-03] MEDS: Glimepiride 2 MG Tablet PO (18:39)
--- NOTE | 2022-11-03 18:46 | EKG12_ITS ---
Test Reason : CP Blood Pressure : / mmHG Vent. Rate : 060 BPM Atrial Rate : 060 BPM P-R Int : 208 ms QRS Dur : 088 ms QT Int : 430 ms P-R-T Axes : -13 015 017 degrees QTc Int : 430 ms Normal sinus rhythm Normal ECG When compared with ECG of 02-NOV-2022 15:26, No significant change was found Confirmed by KALIN TURNER, KIMBERLEY ([id number]), supervising editor news reel ANNMARIE GANT ([id number]) on 11/04/2022 2:06:39 PM Referred By: Confirmed By:KIMBERLEY GAGNON MD
[2022-11-03] MEDS: 0.9% Saline Lock 10 ML Syringe IV (21:38)
[2022-11-03] MEDS: Atorvastatin Calcium 80 MG Tablet PO (21:38)
[2022-11-03] MEDS: Spironolactone 25 MG Tablet PO (21:38)
[2022-11-03 22:40] LABS: Bedside Glucose 179 mg/dL (74-106)
[2022-11-04] VITALS (7 sets, daily range): BP systolic 123–169; BP diastolic 61–74; PULSE 55–69; RESP 15–17; TEMP 36.7–36.9; O2SAT 95–98; BMI 34.7
[2022-11-04 00:26] LABS: Bedside Glucose 244 mg/dL (74-106)
[2022-11-04 00:26] LABS: Bedside Glucose 174 mg/dL (74-106)
[2022-11-04] MEDS: Thyroid 60 MG Tablet 120 MG PO (04:59)
[2022-11-04] MEDS: Insulin Lispro 100 UNIT/ML INSULN.PEN SC (07:09)
[2022-11-04 07:23] LABS: Absolute Neutrophil Count 6.2 X10^3/uL (2.0-7.7); Basophil# 0.06 X10^3/uL; Basophil% 0.6 % (0-1); Eosinophil# 0.26 X10^3/uL; Eosinophils% 2.7 % (0-5); Hematocrit 43.6 % (37-47); Hemoglobin 14.2 g/dL (12.0-15.0); Lymphocyte % 23.8 % (19-41); Mean Corp Hgb Conc 32.6 g/dL (32-36); Mean Corpuscular Hgb 30.1 pg (27.0-32.0); Mean Corpuscular Volume 92.6 fL (81-99); Mean Platelet Vol. 9.4 fl (6.2-12.0); Monocyte# 0.77 X10^3/uL; NRBC Flagged by Analyzer 0 % (0-5); Neutrophil # 6.23 X10^3/uL (2.7-7.7); Neutrophil % 64.4 % (47-70); Platelet Count 325 K/mm3 (150-450); RBC Distribution Width CV 13.1 % (11.6-14.6); RBC Distribution Width SD 44.3 fl (35.1-43.9); Red Blood Count 4.71 M/mm3 (4.2-5.4); White Blood Count 9.7 K/mm3 (4.4-11.0)
[2022-11-04 07:54] LABS: Anion Gap 8 (5-15); BUN 12 mg/dL (7-18); BUN/Creat Ratio 20.9 RATIO (10-20); Calcium,Total 9.4 mg/dL (8.5-10.1); Chloride 104 mmol/L (98-107); Creatinine, Serum 0.58 mg/dL (0.55-1.02); EST Glomerular Filtration Rate 111 mL/min (>60); Est Glom Filt Rate - Afr Amer 135 mL/min (>60); Estimated Creatinine Clearance 39.21 ml/min; Glucose 174 mg/dL (74-106); Potassium 3.9 mmol/L (3.5-5.1); Sodium Level 137 mmol/L (136-145)
[2022-11-04 08:06] LABS: Bedside Glucose 175 mg/dL (74-106)
[2022-11-04] MEDS: Clopidogrel Bisulfate 75 MG Tablet PO (08:57)
[2022-11-04] MEDS: Carvedilol 6.25 MG Tablet PO (08:58)
[2022-11-04] MEDS: Cyanocobalamin 500 MCG Tablet 1000 MCG PO (08:58)
--- NOTE | 2022-11-04 10:19 | DS.PCM_ITS ---
Providers Date of Admission: 11/02/22 Date of Discharge: 11/04/22 Primary Care Physician: Dr. Preet Farrar, DO Consultations 11/03/22 14:24 Consult: Vascular Surgery Routine Consulting Provider: Hermes Block Reason for Consult: stroke with high grade stenosis of vertebral artery and occlusion of L ICA EMERGENT Consult: No MD Notified: Yes Date Notified: 11/03/22 Time Notified: 14:24 Method of Notification: Text Reason For Visit: ACUTE ISCHEMIC STROKE Diagnosis Discharge Diagnosis (1) 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: Status: Acute Code(s): I63.9 - Cerebral infarction, unspecified Plan #Acute CVA * denies RLE weakness. * CT brain showed a left frontal parietal love with acute ischemic infarct * MRi showed subacute cortical gyral ischemic infarctions int eh left superior frontal gyrus more than the left pre and postcentral gyri and posterior aspect of the left middle frontal gyrus * CTA head and neck showed complete occlusion of the left internal carotid artery, and high grade stenosis at the subclavian originis of both vertebral arteries due to noncalcified plaques * on plavix and high intensity statin. * patient allergic to aspirin * [facility] neurology consulted; appreciate rec's * 2D echo showed normal LV size, with moderate concentric LV hypertrophy and LVSF with EF of 60% and stage 1 diastolic function, with mild aortic stenosis. * #Hypertension * BP markedly elevated. BP meds on hold to allow for permissive hypertension * #Hypothyroidism: on synthroid #Diabetes mellitus * A1C is 7 * on glimepiride. * ISS. Accuchecks ACHS * #Nicotine dependence: counseled to quit. Nicotine patch 21mg daily. DVT prophylaxis: lovenox Medications at Discharge Home Medications ergocalciferol (vitamin D2) 1,250 mcg (50,000 unit) capsule 50,000 unit PO MOFR SUPPLEMENT 12/18/20 glimepiride 2 mg tablet 2 mg PO DINNER Blood sugar 12/18/20 thyroid (pork) 120 mg tablet 120 tablet PO DAILY THYROID 12/18/20 thyroid (pork) 120 mg tablet 240 mg PO WESA THYROID 12/18/20 carvedilol 6.25 mg tablet 6.25 mg PO BID Heart rate 11/02/22 cyanocobalamin (vitamin B-12) 1,000 mcg tablet 1,000 mcg PO DAILY 11/02/22 spironolactone 25 mg tablet 25 mg PO QHS 11/02/22 atorvastatin 80 mg tablet 80 mg PO QHS #30 tabs 11/04/22 clopidogrel 75 mg tablet 75 mg PO DAILY #30 tabs 11/04/22 Hospital Course Operations None Procedures 2-D Echocardiogram Summary of Care Provided Minutes Spent on Discharge: 57 Hospital Course: Patient is a 67-year-old female with a past medical history as outlined was admitted with a complaint of right lower extremity weakness. Symptoms started on the day of admission and states she had had similar symptoms when she had emergency surgery on her back due to herniated disc. On admission imaging done of her back did not show any evidence of disc herniation but CT of the brain showed left frontal parietal lobe acute ischemic infarct. She was admitted and managed for acute CVA. She was placed on Plavix and high intensity statin. She was allergic to aspirin. MRI of the brain showed subacute cortical gyral ischemic infarctions int eh left superior frontal gyrus more than the left pre and postcentral gyri and posterior aspect of the left middle frontal gyrus. 2D echo showed normal LV size, with moderate concentric LV hypertrophy and LVSF with EF of 60% and stage 1 diastolic function, with mild aortic stenosis. CTA head and neck showed complete occlusion of the left internal carotid artery, and high grade stenosis at the subclavian originis of both vertebral arteries due to noncalcified plaques. She worked with physical therapy and did well. She was referred to vascular surgery but vascular surgeon was currently not available. Patient was therefore counseled to follow-up with vascular surgery on outpatient basis within 1 to 2 weeks. Of note, patient mentioned that she was already seen a vascular surgeon to be worked up for a stent for renal artery stenosis and she preferred to follow-up with a vascular surgeon in [place] as well. She remained stable and was discharged on 11/04/2022 on p.o. Plavix, as well as high intensity statin. She was continued on her carvedilol and spironolactone and counseled on compliance and is to follow-up with her primary care doctor, vascular surgery and neurology. Patient was counseled strongly to quit smoking as well. Patient seen and examined prior to discharge. She had no active complaints and had an uneventful night. Review of symptoms otherwise negative. Labs and vitals reviewed. Home medications reviewed and reconciled. Physical Exam Const alert, oriented x3 and no apparent distress General Appearance: cooperative and comfortable Orientation / Consciousness: awake Exam Limitations: no limitations HEENT normocephalic, head/scalp atraumatic, hearing grossly normal bilaterally, moist oral mucous membranes and oropharynx normal Mouth: oral and palatal mucosa normal Eyes PERRL, EOMs intact bilaterally and conjunctivae normal Neck no lymphadenopathy and supple Resp normal respiratory effort, no retractions, no use of accessory muscles and clear to auscultation bilaterally Cardio regular rate, regular rhythm, S1 normal heart sound, S2 normal heart sound and no murmurs GI normal to inspection, nondistended, normoactive bowel sounds, soft to palpation, non-tender and non-distended Extremity normal to inspection, full ROM and no clubbing, cyanosis or edema Skin no rashes or lesions noted Neuro oriented x3, CN's II-XII intact bilaterally, moves all extremities and no focal motor deficits Sensorium / Orientation: awake and alert Motor Exam: strength 5/5 throughout Psych affect normal Weight / BMI Weight Weight: 177 lb 11.081 oz Body Mass Index (BMI) 34.7 ABG / Lab / Microbiology Data Result Diagrams: 11/04/22 07:14 11/04/22 07:14 Laboratory: Laboratory Results - last 24 hr 11/03/22 11:48: POC Glucose 202 H 11/03/22 14:12: POC Glucose 244 H 11/03/22 18:37: POC Glucose 174 H 11/03/22 21:36: POC Glucose 179 H 11/04/22 07:08: POC Glucose 175 H 11/04/22 07:14: WBC 9.7, RBC 4.71, Hgb 14.2, Hct 43.6, MCV 92.6, MCH 30.1, MCHC 32.6, RDW Std Deviation 44.3 H, RDW Coeff of Neida 13.1, Plt Count 325, MPV 9.4, Immature Gran % (Auto) 0.500, Neut % (Auto) 64.4, Lymph % (Auto) 23.8, [place] % (Auto) 8.0, Eos % (Auto) 2.7, Baso % (Auto) 0.6, Absolute Neuts (auto) 6.2, Absolute Lymphs (auto) 2.30, Nucleated RBC % 0 11/04/22 07:14: Sodium 137, Potassium 3.9, Chloride 104, Carbon Dioxide 25.0, Anion Gap 8, BUN 12, Creatinine 0.58, Estim Creat Clear Calc 39.21, Est GFR (MDRD) Af Amer 135, Est GFR (MDRD) Non-Af 111, BUN/Creatinine Ratio 20.9 H, Glucose 174 H, Calcium 9.4 Radiography Diagnostic Testing: Radiology Impression Echocardiogram 11/02/22 17:52 Interpretation Summary Normal LV size. Moderate concentric left ventricular hypertrophy. Left ventricular systolic function is normal. The estimated ejection fraction is 60 %. Stage 1 diastolic dysfunction. Mild aortic stenosis. Mean aortic valve gradient 12 mmHg. Ordering Physician: Hermes Mirza Performed By: Nick Chambers RCS Head/Neck CTA 11/03/22 10:35 IMPRESSION: 1. Complete occlusion of the left cervical internal carotid artery, petrous segments and cavernous segments of the left internal carotid artery. 2. Occluded M3 and M4 branches feeding the left frontal lobe. This distal thromboembolic occlusion accounts for the subacute cortical gyral ischemic infarcts involving the left superior frontal gyrus more than the left posterior middle frontal gyrus and the left central lobe convexity. 3. Adaptive narrowing of the left supraclinoid internal carotid artery, left M1 segment, left M2 segments of the left M1 bifurcation with collateral flow coming from patent left posterior communicating artery. No collateral flow from the right carotid to the left supraclinoid internal carotid artery due to developmentally absent left A1 segment. 4. No other suspicious significant vaso-occlusive disease of the anterior and posterior intracranial circulation. 5. Widely patent right common carotid artery and right cervical internal carotid artery. 6. High-grade stenosis at the subclavian origins of both vertebral arteries due to noncalcified plaques. The remaining segments of both vertebral arteries are widely patent. 7. Normal aortic arch and origins of the great vessels. Electronically Signed: Chano Jenkins MD at 11:50 EST , ADDENDUM: 11/03/22 1214 IMPRESSION: 1. Complete occlusion of the left cervical internal carotid artery, petrous segments and cavernous segments of the left internal carotid artery. 2. Occluded M3 and M4 branches feeding the left frontal lobe. This distal thromboembolic occlusion accounts for the subacute cortical gyral ischemic infarcts involving the left superior frontal gyrus more than the left posterior middle frontal gyrus and the left central lobe convexity. 3. Adaptive narrowing of the left supraclinoid internal carotid artery, left M1 segment, left M2 segments of the left M1 bifurcation with collateral flow coming from patent left posterior communicating artery. No collateral flow from the right carotid to the left supraclinoid internal carotid artery due to developmentally absent left A1 segment. 4. No other suspicious significant vaso-occlusive disease of the anterior and posterior intracranial circulation. 5. Widely patent right common carotid artery and right cervical internal carotid artery. 6. High-grade stenosis at the subclavian origins of both vertebral arteries due to noncalcified plaques. The remaining segments of both vertebral arteries are widely patent. 7. Normal aortic arch and origins of the great vessels. N.B. : The above Results were Read Back by Chano Jenkins MD to Gladys Quezada RN, and understanding confirmed on 11/03/2022 12:07:08 (ET). Electronically Signed: Chano Jenkins MD at 11:50 EST , D/C Instructions Discharge Diet: Low fat / Low cholesterol Discharge Activity: Return to Normal Activity Weight Bearing Status: Weight bearing as tolerated Call your doctor if you observe: Fever of 101 or Higher, Shortness of breath, Swelling in the ankles, Chest pain and Increased palpitations (irregular heartbeat) Meaningful Use Info Meaningful Use Diagnoses (Choose all that apply): Ischemic CVA CVA Therapy Assessed for PT,OT and/or ST?: Yes Ischemic Stroke Antithrombotic order at d/c?: Yes Dx of Atrial fib/flutter?: No Statins at discharge?: Yes Primary Dx Acute Ischemic CVA?: Yes IV tPA ordered during stay?: No Reason IV t-PA not ordered: Treatment not Indicated Discharge Plan Admission Admit Date/Time: 11/02/22 17:27 Primary Reason for Your Visit: acute cva Attending Provider: Carmen Dallas Primary Care Provider: Preet Farrar Consulting Providers: Hermes Mirza ; Hermes Block Instructions Patient Instructions: Booklet - [facility] Stroke ED - Living After Stroke, Booklet - Understanding Stroke Discharge Orders/Prescriptions Prescriptions: New atorvastatin 80 mg Tablet 80 mg PO QHS Qty: 30 2RF clopidogrel 75 mg Tablet 75 mg PO DAILY Qty: 30 2RF Continued thyroid (pork) 120 MG tablet 120 tablet PO DAILY Rx Instructions: pt takes in am- SHE TAKES ONE EVERY AM AND THEN AND EXTRA ONE ON THU AND THU thyroid (pork) 120 MG tablet 240 mg PO WESA Rx Instructions: pt takes on Wednesdays and Saturdays glimepiride 2 MG tablet 2 mg PO DINNER ergocalciferol (vitamin D2) 50,000 UNIT capsule 50,000 unit PO MOFR carvedilol 6.25 mg tablet 6.25 mg PO BID Label Comments: TAKE 1 TABLET BY MOUTH TWICE DAILY cyanocobalamin (vitamin B-12) 1,000 mcg tablet 1,000 mcg PO DAILY Label Comments: Take 3 tablets by mouth once daily. spironolactone 25 mg tablet 25 mg PO QHS Label Comments: TAKE 1 TABLET BY MOUTH AT BEDTIME Referrals / Follow Up: Hermes Block MD [Med Staff - Active Staff] - Within 2 Weeks Preet Farrar DO [Primary Care Provider] - Kenton Stapleton MD [Non-Staff -Ordering Privileges] - Within 2 Weeks Disposition Disposition (needs filled in before D/C Order can be placed): Home, Self Care Charges/Coding Visit Charges Inpatient E&M: 26180 Disch Hosp >30min
--- NOTE | 2022-11-04 11:09 | PHA.DC.MC ---
Pharmacy Service has performed discharge medication reconciliation and counseling for this patient. 1. ATORVASTATIN 80MG PO QHS 2. CLOPIDOGREL 75MG PO DAILY The patient's discharge medication list was reviewed for discrepancies and discrepancies were resolved. Home Medications ergocalciferol (vitamin D2) 1,250 mcg (50,000 unit) capsule 50,000 unit PO MOFR SUPPLEMENT 12/18/20 glimepiride 2 mg tablet 2 mg PO DINNER Blood sugar 12/18/20 thyroid (pork) 120 mg tablet 120 tablet PO DAILY THYROID 12/18/20 thyroid (pork) 120 mg tablet 240 mg PO WESA THYROID 12/18/20 carvedilol 6.25 mg tablet 6.25 mg PO BID Heart rate 11/02/22 cyanocobalamin (vitamin B-12) 1,000 mcg tablet 1,000 mcg PO DAILY 11/02/22 spironolactone 25 mg tablet 25 mg PO QHS 11/02/22 atorvastatin 80 mg tablet 80 mg PO QHS #30 tabs 11/04/22 clopidogrel 75 mg tablet 75 mg PO DAILY #30 tabs 11/04/22 The patient was counseled on the following discharge medications and changes in medications for homegoing were reviewed. The Reason for Use, instructions for use, and potential side effects were reviewed for all new medications. The patient's questions regarding all of their medications were answered. The patient was able to verbally demonstrate an understanding of their discharge medications.
== END 2022-11-04 10:17 | disposition home or self-care (01) ==
LOC: ED 16:59 → PCU 17:39
PROVIDERS: Emergency Provider Emergency Medicine; PCP Student in an Organized Health Care Education/Training Program; Visit Provider Student in an Organized Health Care Education/Training Program
DX: I63.232 Cerebral infarction due to unspecified occlusion or stenosis of left carotid arteries (principal); E11.40 Type 2 diabetes mellitus with diabetic neuropathy, unspecified; I10 Essential (primary) hypertension; M48.02 Spinal stenosis, cervical region; R53.1 Weakness; Z79.84 Long term (current) use of oral hypoglycemic drugs; E03.9 Hypothyroidism, unspecified; Z79.899 Other long term (current) drug therapy; Z79.890 Hormone replacement therapy; F17.210 Nicotine dependence, cigarettes, uncomplicated; E78.5 Hyperlipidemia, unspecified; R29.702 NIHSS score 2
CPT/HCPCS: 36415; 70450; 70496; 70498; 70551; 72100; 80048; 80061; 82962; 83036; 84484; 85025; 85610; 85730; 93005; 93306; 94762; 97162; 97166; 99221; 99284; 99406; Q9967; A4216; G0378

== ENCOUNTER 2022-11-20 10:00 | Outpatient (RCR) | payer MEDICARE, MEDICAID, SELFPAY ==
--- NOTE | 2022-11-13 12:52 | HP.PTEVAL_ITS ---
Patient's Visit Information LEIDY AMADO is a 67 year old F referred to Physical Therapy by Dr. Carmen Dallas MD with a diagnosis of Ischemic cerebrovascular accident frontal lobe. Date of Evaluation: 11/13/22 Physical Therapist: Douglas Abdul - Visit Plan Frequency: 1-2x /Week Duration: 4 Weeks Plan: Continue with improving LE strength and balance. - Subjective Pt. is a 67 y.o. female who suffered a stroke on 10-31-22 when she noticed that her right foot felt heavy and then she couldn't figure out how to get her car into reverse. She eventually went to the ER and was admitted to the hospital and had imaging which showed ischemic stroke to frontal lobe. Pt. PLOF includes no history of strokes in the past before this. Pt. denies any falls. She does have some tingling in both of her feet but this isn't new as she had this prior. Pt. denies any change to her vision. She has difficulty with walking long distances. 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 Her goal with physical therapy is to build up her strength and endurance. She has had previous physical therapy for her back. She denies any pain. Her PMH includes HBP controlled with medication, type II diabetes, former smoker quit 3 weeks ago, lumbar fusion surgery, tonsillectomy, hernia surgery, and gall bladder removed. Pt. lives alone in a two story home. Her hobbies include spending time with family and friends. - Objective Posture- Good posture in standing. Hip PROM- WNL for all motions. Left strength hip flexion [5/5], abduction [5/5], adduction [5/5], extension [4+/5], knee flexion [5/5], knee extension [5/5], ankle DF [5/5], ankle PF [5/5]. Right strength hip flexion [5/5], abduction [4+/5], adduction [5/5], extension [4+/5], knee flexion [5/5], knee extension [5/5], ankle DF [5/5], ankle PF [5/5]. Sensation- WNL bilateral lower extremities. Tandem stance on left [24 secs], right [4 secs]. SLS on left [1 sec], right [3 secs]. 30 sec sit to stand- x 10 with no arm assist. Gait- Pt. ambulates with no gait deviations. - Balance/Special Test Scores Lower Extremity Functional Score: 77 - Goals Goal 1:: Pt. will report no falls. Goal Time Frame: 4-6 Weeks Goal 2:: Pt. will be able to complete at least 12 sit to stands in 30 secs with no arm assist in order to improve mobility. Goal Time Frame: 4-6 Weeks Goal 3:: Pt. will be able to complete tandem stance > 20 secs in order to improve stability and balance. Goal Time Frame: 4-6 Weeks Goal 4:: Pt. will be able to walk at least 20 minutes on her treadmill with no rest breaks or difficulty. Goal Time Frame: 4-6 Weeks - Rehabilitation Potential Physical Therapy Diagnosis: Decreased LE strength and balance Rehabilitation Potential: Good - Anticipated Interventions Patient/Client Instruction: Educate patient on: Condition, Plan of Care, Benefits of Fitness Program For the Purpose of:: To improve ability to perform ADL's, To improve performance and independence with ADL's, To assume or resume ADL's, To improve health and function, To improve tolerance to ADL's Therapeutic Exercise to Include: Strength training, Endurance training, Balance training Comment: Continue to work on improving LE strength and balance. For the Purpose of:: To improve ability to perform ADL's, To improve performance and independence with ADL's, To assume or resume ADL's, To improve tolerance to ADL's Functional Training to Include: ADL Training For the Purpose of:: To improve ability to perform ADL's, To improve performance and independence with ADL's, To assume or resume ADL's, To improve tolerance to ADL's Thank you for the opportunity to evaluate your patient. For Medicare and Medicare HMO plans, please review the plan of care and approve it. It will need to be FAXED BACK to us at [phone] for Medicare purposes. For Medicare only, by signing this I certify the plan of care. Please let me know if there are questions or concerns regarding this plan of care. Physician Signature: Date:
--- NOTE | 2022-11-20 10:36 | HP.PTDCSUM ---
It has been my pleasure to treat LEIDY AMADO referred by Dr. Preet Farrar DO, with the diagnosis of Ischemic cerebrovascular accident frontal lobe for a total of 2 visit(s). Discharge Date: Please see the following information for a summary of their discharge status. Subjective: Pt. states that she is doing well and her exercises are going well and she is doing them daily. She did see her vascular surgeon yesterday and she doesn't need to have surgery. Pt. is scheduled for a renal ultrasound tomorrow. She reports that she is doing well and would like to be discharged and continue with her exercises at home and will also walk on her treadmill. Goal 1:: Pt. will report no falls. Goal Progress: Goal Met Goal 2:: Pt. will be able to complete at least 12 sit to stands in 30 secs with no arm assist in order to improve mobility. Goal Progress: Goal Met Goal 3:: Pt. will be able to complete tandem stance > 20 secs in order to improve stability and balance. Goal Progress: Goal Met Goal 4:: Pt. will be able to walk at least 20 minutes on her treadmill with no rest breaks or difficulty. Goal Progress: Progressing Plan: Pt. has been discharged from physical therapy at this time and is in agreement with this. If there are questions or concerns regarding this patient's physical therapy, please feel free to call me at [phone]. Thank you for the referral of this patient. Sincerely, Douglas Abdul Balance/Gait/Functional tests - Balance/Special Test Scores Lower Extremity Functional Score: 77
== END 2022-11-20 10:53 | disposition home or self-care (01) ==
LOC: PT 10:00
PROVIDERS: PCP Student in an Organized Health Care Education/Training Program; Referring Provider Student in an Organized Health Care Education/Training Program; Visit Provider Student in an Organized Health Care Education/Training Program
DX: G45.8 Other transient cerebral ischemic attacks and related syndromes (principal)
CPT/HCPCS: 97110; 97161

== ENCOUNTER → 2022-11-21 | Outpatient (CLI) | payer MEDICARE, MEDICAID, SELFPAY ==
--- NOTE | 2022-11-21 08:42 | RDU_ITS ---
Reason For Study: HTN Right Renal Artery Left Renal Artery Right renal artery ostium Left renal artery ostium 414.7/71 138.9/30.1 RSV/EDV. PSV/EDV. Right renal artery proximal Left renal artery proximal PSV/EDV 153.2/30.8 PSV/EDV. 350.4/52.2 . Right renal artery mid 139.4/34.8 Left renal artery mid 165.9/30.1 PSV/EDV. PSV/EDV . Right renal artery distal Left renal artery distal 98.4/14.5 148.5/37.1 PSV/EDV. PSV/EDV. Right RAR 1.80. Left RAR 4.86. Right Renal Parenchyma Left Renal Parenchyma Upper Pole Medula 28.7/5.7 PSV/EDV. Left upper pole medulla 25.8/9.3 Right upper pole medulla EDR 0.2 . PSV/EDV . Right upper pole medulla R.I. Left upper pole medulla EDR 0.4 . 0.80 . Left upper pole medulla R.I. 0.64 . Upper [place]ayan Cortx 19.4/5.7 PSV/EDV. UP Cortex 19.9/5.8 PSV/EDV. Right upper pole cortex EDR 0.3 . Left upper pole cortex EDR 0.3 . Right upper pole cortex R.I. 0.71 . Left upper pole cortex R.I. 0.71 . Right lower Pole medulla 29.8/7.9 Left lower Pole medulla 29.1/7.6 PSV/EDV . PSV/EDV . Right lower pole medulla EDR 0.3 . Left lower pole medulla EDR 0.3 . Right lower pole medulla R.I. Left lower pole medulla R.I. 0.74 . 0.74 . Lower Pole Cortx 22.5/6.5 PSV/EDV. Lower Pole Cortex 22.7/7.3 PSV/EDV. Left lower pole cortex EDR 0.3 . Right lower pole cortex EDR 0.3 . Left lower pole cortex R.I. 0.71 . Right lower pole cortex R.I. 0.68 . Left Renal Hilar Right Renal Hilar LT Hilar avg 76.8/23.2 PSV/EDV . Right Hilar avg 75.6/14.5 PSV/EDV. Left hilar acceleration time 50 Right hilar acceleration time 70 m/sec. m/sec. Left Renal Dimensions Right Renal Dimensions Left kidney size 10.13 cm . Right kidney size 10.31 cm . Left cortical dimension 1.94 cm . Right cortical dimension 1.35 cm . Aorta Proximal abdominal aorta 1.50 x 1.51 cm . Proximal abdominal aorta peak systolic velocity is 85.3 cm/sec . Distal abdominal aorta 1.32 x 1.32 cm . Distal abdominal aorta peak systolic velocity is 83.1 cm/sec . VL/Renal Artery Duplex Ultrasound Interpretation Summary Right renal artery <60% stenosis. Left renal >60% stenosis. Ordering Physician: Sean Bradley Referring Physician: Preet Farrar Performed By: Kathy Clinton RVT
== END | disposition home or self-care (01) ==
LOC: CVS 08:40
PROVIDERS: PCP Student in an Organized Health Care Education/Training Program; Referring Provider Surgery Vascular Surgery; Visit Provider Surgery Vascular Surgery
DX: I77.1 Stricture of artery (principal); I10 Essential (primary) hypertension
CPT/HCPCS: 93975

== ENCOUNTER → 2023-04-09 | Outpatient (CLI) | payer MEDICARE, MEDICAID, SELFPAY ==
--- NOTE | 2023-04-09 08:50 | CDU_ITS ---
Reason For Study: Left ICA occlusion Rt. Velocities/BP Lt. Velocities/BP Prox CCA 67.4/16.3 cm/sec. Prox CCA 70.0/13.3 cm/sec. Mid CCA 86.3/21.1 cm/sec. Mid CCA 71.8/14.2 cm/sec. Dist CCA 75.9/21.1 cm/sec. Dist CCA 63.1/12.5 cm/sec. Prox ICA 96.0/24.5 cm/sec. Prox ECA 381.7/64.0 cm/sec. Mid ICA 76.2/20.1 cm/sec. Lt. Vert. 101.4/32.2 cm/sec. Dist ICA 58.6/23.4 cm/sec. Rt. ICA/CCA = 1.1. Prox ECA 109.1/19.0 cm/sec. Rt. Vert. 11.6/6.4 cm/sec. Right Extracranial There is heterogeneous, irregular atherosclerotic plaque noted in the right common carotid artery. There is homogeneous, smooth atherosclerotic plaque noted in the right internal carotid artery. There is intimal thickening but no significant atherosclerotic plaque noted in the right external carotid artery. Antegrade flow is noted in the right vertebral artery. Left Extracranial There is heterogeneous, smooth atherosclerotic plaque noted in the left common carotid artery. The left internal carotid artery is occluded. There is homogeneous, smooth atherosclerotic plaque noted in the left external carotid artery. Antegrade flow is noted in the left vertebral artery. Procedure Carotid Duplex 07703. This is a Carotid Duplex examination using B-mode, color flow and specral Doppler. The exam was diagnostic. Exam performed in department. VL/Carotid Duplex Ultrasound Interpretation Summary Mild (<50%) stenosis right extracranial internal carotid. The left internal car otid artery appears to be totally occluded. Flow within the vertebral arteries is antegrade bilater ally. Ordering Physician: Kenton Stapleton Performed By: Deejay Alvarez RVT
== END | disposition home or self-care (01) ==
LOC: CVS 08:49
PROVIDERS: PCP Student in an Organized Health Care Education/Training Program; Referring Provider Psychiatry & Neurology Neurology; Visit Provider Psychiatry & Neurology Neurology
DX: I63.232 Cerebral infarction due to unspecified occlusion or stenosis of left carotid arteries (principal)
CPT/HCPCS: 93880

== ENCOUNTER → 2023-05-14 | Outpatient (CLI) | payer MEDICARE, MEDICAID, SELFPAY ==
--- NOTE | 2023-05-14 07:44 | RDU_ITS ---
Reason For Study: renal stenosis Right Renal Artery Left Renal Artery Right renal artery ostium Left renal artery ostium 394.7/93.8 105.1/28.1 RSV/EDV. PSV/EDV. Right renal artery proximal Left renal artery proximal PSV/EDV 106.7/25.5 PSV/EDV. 357.8/57.2 . Right renal artery mid 104.5/25.5 Left renal artery mid 265.3/49.4 PSV/EDV. PSV/EDV . Right renal artery distal Left renal artery distal 124.1/41.2 144.0/38.6 PSV/EDV. PSV/EDV. Right RAR 2.0. Left RAR 5.6. Right Renal Parenchyma Left Renal Parenchyma Upper Pole Medula 29.2/8.3 PSV/EDV. Left upper pole medulla 41.5/14.1 Right upper pole medulla EDR .29 . PSV/EDV . Right upper pole medulla R.I. .71 . Left upper pole medulla EDR .34 . Upper [place]ayan Cortx 33.6/11.6 PSV/EDV. Left upper pole medulla R.I. .66 . Right upper pole cortex EDR .35 . UP Cortex 28.4/8.7 PSV/EDV. Right upper pole cortex R.I. .65 . Left upper pole cortex EDR .31 . Right lower Pole medulla 45.7/12.7 Left upper pole cortex R.I. .69 . PSV/EDV . Left lower Pole medulla 31.7/11.9 Right lower pole medulla EDR .28 . PSV/EDV . Right lower pole medulla R.I. .72 . Left lower pole medulla EDR .38 . Lower Pole Cortex 30.3/9.4 PSV/EDV. Left lower pole medulla R.I. .62 . Right lower pole cortex EDR .31 . Lower Pole Cortx 31.7/7.6 PSV/EDV. Right lower pole cortex R.I. .69 . Left lower pole cortex EDR .24 . Right Renal Hilar Left lower pole cortex R.I. .76 . Right Hilar avg 62.1/18.2 PSV/EDV. Left Renal Hilar Right hilar acceleration time 40 LT Hilar avg 55.8/18.5 PSV/EDV . m/sec. Left hilar acceleration time 70.0 Right Renal Dimensions m/sec. Right kidney size 10.3 cm . Left Renal Dimensions Right cortical dimension 1.74 cm . Left kidney size 10.2 cm . Left cortical dimension 1.41 cm . Aorta Proximal abdominal aorta 1.11 x 1.13 cm . Proximal abdominal aorta peak systolic velocity is 71.0 cm/sec . Distal abdominal aorta 1.16 x 1.13 cm . Distal abdominal aorta peak systolic velocity is 62.2 cm/sec . Donovan normal renal veins. VL/Renal Artery Duplex Ultrasound Interpretation Summary Right renal <60%. Left renal >60%. Ordering Physician: Sean Bradley Performed By: Deejay Alvarez RVT
== END | disposition home or self-care (01) ==
LOC: CVS 07:44
PROVIDERS: PCP Student in an Organized Health Care Education/Training Program; Referring Provider Surgery Vascular Surgery; Visit Provider Surgery Vascular Surgery
DX: I70.1 Atherosclerosis of renal artery (principal); I10 Essential (primary) hypertension
CPT/HCPCS: 93975

== ENCOUNTER 2023-07-01 16:46 | Observation (INO) | payer MEDICARE, MEDICAID, SELFPAY ==
[2023-07-01 16:47] VITALS: BP 143/68; PULSE 66; RESP 20; TEMP 35.8; O2SAT 99; BMI 30.7
--- NOTE | 2023-07-01 17:11 | EKG12_ITS ---
Test Reason : FALL Blood Pressure : / mmHG Vent. Rate : 060 BPM Atrial Rate : 060 BPM P-R Int : 184 ms QRS Dur : 090 ms QT Int : 552 ms P-R-T Axes : -42 013 028 degrees QTc Int : 552 ms Critical Test Result: Long QTc Unusual P axis, possible ectopic atrial rhythm Prolonged QT Abnormal ECG Confirmed by KALIN TURNER, KIMBERLEY ([id number]), editorial assistant PAT CONTRERAS ([id number]) on 07/03/2023 1:10:07 PM Referred By: Confirmed By:KIMBERLEY GAGNON MD
--- NOTE | 2023-07-01 17:23 | CT_ITS ---
INDICATION: Trauma, head injury EXAMINATION: CT BRAIN - CT Head or Brain W/O Contrast Injection TECHNIQUE: Multiple axial images were obtained of the head without intravenous contrast. A radiation dose optimization technique was used for this scan. IV Contrast dosage and agent: None. COMPARISON: 11/03/2022 FINDINGS: BRAIN PARENCHYMA: No intra- or extra-axial hemorrhage. No evidence of acute infarct. No intracranial mass or mass effect. Posterior fossa structures are unremarkable. CSF SPACES: Stable. No hydrocephalus. Basal cisterns are patent. CALVARIUM, SKULL BASE, PARANASAL SINUSES AND MASTOID AIR CELLS: Clear. No acute fracture. ORBITS: Both globes, extraocular muscles, optic nerves and retrobulbar fat appear unremarkable. CT/Brain/Head without Contrast IMPRESSION: No acute intracranial findings. Electronically Signed: Owen Rosas MD at 18:01 EDT ,
--- NOTE | 2023-07-01 17:35 | EDS_ITS ---
HPI History of Present Illness Chief Complaint: General Illness Informant: patient and family Narrative Narrative: Presents ED with sister stating just not feeling well and weak. She was diagnosed viral syndrome 5 days ago by PCP which she had vomiting diarrhea. She reported COVID influenza was negative. Diarrhea vomited stopped 3 days ago. She has been drinking fluids however states she cannot drink enough. Denies history of heart failure. Denies any cardiac history. Denies chest pains or shortness of breath. She states 2 days ago getting up felt lightheaded fell to the ground hitting her head. There is no syncopal episodes. She does currently take Plavix stating history of stroke this past October. She had no residual deficits from that. She stopped smoking since then. She lives alone. [facility] Medical History Diabetes mellitus Former tobacco use Hypertension Hypothyroidism Irritable bowel syndrome 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 Lumbar disc herniation with radiculopathy Lumbar spinal stenosis Ulcerative colitis Vitamin D deficiency Home Medications ergocalciferol (vitamin D2) 1,250 mcg (50,000 unit) capsule 50,000 unit PO MOFR SUPPLEMENT 12/18/20 [History Last Taken 06/29/23] glimepiride 2 mg tablet 2 mg PO DINNER Blood sugar 12/18/20 [History Last Taken 07/01/23] thyroid (pork) 120 mg tablet 120 tablet PO SUMOTUWETHSA THYROID 12/18/20 [History Last Taken 07/01/23] thyroid (pork) 120 mg tablet 240 mg PO FR THYROID 12/18/20 [History Last Taken 06/26/23] carvedilol 6.25 mg tablet 6.25 mg PO BID HEART RATE 11/02/22 [History Last Taken 07/01/23] cyanocobalamin (vitamin B-12) 1,000 mcg tablet 3,000 mcg PO DAILY SUPPLEMENT 0 11/02/22 [History Last Taken 07/01/23] atorvastatin 80 mg tablet 80 mg PO QHS #30 tabs 11/04/22 [Rx Last Taken 06/30/23] clopidogrel 75 mg tablet 75 mg PO DAILY BLOOD THINNER #30 tabs 11/04/22 [Rx Last Taken 07/01/23] semaglutide 0.25 mg or 0.5 mg (2 mg/3 mL) subcutaneous pen injector (extraTKTic) 0.5 mg subcut MO BLOOD SUGARS 03/16/23 [History Last Taken 06/29/23] elderberry fruit 200 mg capsule 1,000 mg PO DAILY SUPPLEMENT 07/01/23 [History Last Taken 07/01/23] Allergy/AdvReac Type Severity Reaction Status Date / Time aspirin Allergy mouth Verified 03/16/23 10:01 swelling gluten Allergy Abd Verified 03/16/23 10:01 cramps/diarrhea ibuprofen Allergy mouth Verified 03/16/23 10:01 swelling Sulfa (Sulfonamide Allergy pt can't Verified 03/16/23 10:01 Antibiotics) remember Family History Mother Heart disease Father Heart disease Hypertension CAD (coronary artery disease) Myocardial infarction Thyroid disorder Diabetes Surgical History History of lumbar discectomy History of lumbar fusion Hx of umbilical hernia repair S/P cholecystectomy S/P tonsillectomy and adenoidectomy S/P tubal ligation Social History household members: none Smoking Status: Former smoker alcohol intake: never substance use type: marijuana and other details: Medical cannabis, usually daily. ROS ROS ED Constitutional Constitutional ED: Denies chills, fever(s) or sweats Eyes Eyes: Denies change in vision ENT ENT ED: Denies dysphagia or sore throat Cardiovascular Cardiovascular: Denies chest pain, leg edema, palpitations or racing heartbeat Respiratory/Chest Respiratory/Chest: Denies cough, dyspnea or dyspnea on exertion Gastrointestinal Gastrointestinal: Denies abdominal pain, diarrhea, nausea or vomiting Genitourinary Genitourinary ED: Denies dysuria, hematuria or urinary frequency Musculoskeletal Musculoskeletal: Denies back pain, extremity pain or neck pain Integumentary Denies rash or wounds Neurologic Neurologic: Reports weakness; Denies headache(s) or paresthesias EXAM Physical Exam Const Vital Signs: 07/01/23 16:47 07/01/23 17:27 07/01/23 17:55 Temperature 96.4 F L Temperature Source Temporal Pulse Rate 66 Respiratory Rate 20 H Respiratory Effort Normal Normal Respiratory Pattern Normal Normal Blood Pressure 143/68 H Blood Pressure Mean 93 Pulse Ox 99 Oxygen Delivery Method Room Air 07/01/23 19:14 Temperature 98.3 F Temperature Source Temporal Pulse Rate 67 Respiratory Rate 12 Respiratory Effort Respiratory Pattern Blood Pressure 115/75 Blood Pressure Mean 88 Pulse Ox 95 Oxygen Delivery Method Room Air Positive well nourished and well developed General Appearance ED: well developed and NAD HEENT Reports moist mucous membranes HEENT Narrative: Healing bruise lateral right eye. normocephalic Eyes PERRL, EOMs intact bilaterally and conjunctivae normal General Eye ED: Yes normal appearance of both eyes Neck no lymphadenopathy and supple General: Negative for tenderness Chest Wall Chest: Negative for tenderness Resp normal respiratory effort and normal air movement Effort and Inspection: symmetric chest movement; Negative for respiratory distress Cardio regular rate, regular rhythm and no murmurs Peripheral Pulses: pulses 2+ throughout GI normal to inspection, nondistended, normoactive bowel sounds and non-tender Palpation: Negative for guarding or rebound tenderness present Back/Spine no CVA tenderness and no thoracic nor lumbar tenderness Extremity normal to inspection General Extremety ED: Negative for edema or tenderness General Extremity: Negative for edema Neuro oriented x3, CN's II-XII intact bilaterally and no sensory deficits noted Sensorium / Orientation: awake and alert Skin no rashes or lesions noted and no wounds MDM MDM MDM Narrative Medical decision making narrative: Interventions / MDM: Differential diagnosis: Diagnosis considered but do not suspect: N/A My EKG interpretation: Sinus rate of 60, no ST changes there is brought in T waves inferior lateral leads QTc corrected is 520. Compared to EKG October 2022 this is new changes. QTc is 427 plan. Imaging independently reviewed and interpreted by myself: N/A External documents reviewed: Echocardiogram October 2022 EF 60% stage I diastolic dysfunction. Test considered but not ordered:N/A ED course: Patient presenting weakness since her vomiting diarrhea. Vitals are stable. She is concerns for decreased fluid intake. IV established fluids were ordered, BNP ordered. EKG ordered due to her near syncopal episode. CT brain due to her head injury. EKG concerning for prolonged QT along with more broad and T waves inferior lateral leads. I did add a troponin for further evaluation. She denies any direct chest pains however generalized weakness complaints. 1844: Troponin returned at 106. No chest pains. I reached out discussed with on-call welding machine operator electro gas Dr. Gray, I he evaluated EKG rhythm strips, I agree with QT prolongation. Recommends holding any QT prolonging agents holding any beta- blockers, replacing the potassium which was replaced with 40 mEq. We will trend her troponin. Will admit to the hospital to hospitalist service. Discussed with hospitalist Dr. Hodges for admission. Re-evaluation: stable Disposition discussed with patient/family/significant other: Patient and family Case discussed with consulting clinician: Cardiology, hospitalist This note was generated with [employer] dictation software. It may contain incorrect words, spelling, and punctuation that were not noted in checking the note before signing. Lab Data Attestation: I reviewed the patient's lab results. Labs: Laboratory Results - last 24 hr 07/01/23 07/01/23 07/01/23 17:24 18:17 18:48 WBC 14.5 H RBC 4.77 Hgb 14.7 Hct 40.8 MCV 85.5 MCH 30.8 MCHC 36.0 RDW Std Deviation 37.6 RDW Coeff of [place] 12.1 Plt Count 379 MPV 9.5 Immature Gran % (Auto) 0.800 Neut % (Auto) 65.6 Lymph % (Auto) 22.6 [place] % (Auto) 9.3 Eos % (Auto) 1.4 Baso % (Auto) 0.3 Absolute Neuts (auto) 9.5 H Absolute Lymphs (auto) 3.27 Nucleated RBC % 0 PT 13.5 INR 1.0 APTT 26.0 Sodium 127 L Potassium 3.3 L Chloride 91 L Carbon Dioxide 30.0 Anion Gap 6 BUN 15 Creatinine 0.80 Estim Creat Clear Calc 49.02 Est GFR (MDRD) Af Amer 92 Est GFR (MDRD) Non-Af 76 BUN/Creatinine Ratio 18.9 Glucose 214 H Calcium 8.4 L Magnesium 2.3 Troponin I High Sens 106 H 101 H Urine Color Yellow Urine Clarity Clear Urine pH 6.5 Ur Specific [place] 1.010 Urine Protein Negative Urine Glucose (UA) Normal Urine Ketones Negative Urine Occult Blood 10 H Urine Nitrite Negative Urine Bilirubin Negative Urine Urobilinogen Normal Ur Leukocyte Esterase Negative Urine RBC 0 SEEN Urine WBC 0-5 SEEN Ur Squamous Epith Cells 0-5 SEEN Urine Bacteria 0 SEEN Urine Mucus 0 SEEN Radiography Diagnostic Testing: Clinical Impression(s) from Imaging Studies Brain CT 07/01/23 17:23 IMPRESSION: No acute intracranial findings. Electronically Signed: Owen Rosas MD at 18:01 EDT , Chest X-Ray 07/01/23 18:05 IMPRESSION: No radiographic evidence of acute cardiopulmonary disease. Electronically Signed: Owen Rosas MD at 18:40 EDT , Critical Care Time Critical Care Time: Yes Critical care time (excluding procedures): 30-74 minutes, Discussing w/Patient &/or Family/Wrapper Operator, Discussing w/Consultants, Arranging Admission or Transfer, Performing Direct Patient Care at Bedside and - (40 minutes) Discharge Plan Dx/Rx/DC Orders Clinical Impression: Prolonged QT interval, Hyponatremia, Abnormal EKG, Elevated troponin, Near syncope, Head injury, Hypokalemia Disposition Disposition: Acute Care Hospital [facility] Discharge Date/Time: 07/01/23 20:08
[2023-07-01] MEDS: 0.9% Normal Saline (1000mL) 1,000 ML 1000 ML IV (17:36)
[2023-07-01 17:42] LABS: Anion Gap 6 (5-15); BUN 15 mg/dL (7-18); BUN/Creat Ratio 18.9 RATIO (10-20); Calcium,Total 8.4 mg/dL (8.5-10.1); Chloride 91 mmol/L (98-107); EST Glomerular Filtration Rate 76 mL/min (>60); Est Glom Filt Rate - Afr Amer 92 mL/min (>60); Estimated Creatinine Clearance 49.02 ml/min; Glucose 214 mg/dL (74-106); Potassium 3.3 mmol/L (3.5-5.1); Sodium Level 127 mmol/L (136-145)
[2023-07-01 17:52] LABS: Absolute Lymphocyte Count 3.27 X10^3/uL (0.83-4.51); Absolute Neutrophil Count 9.5 X10^3/uL (2.0-7.7); Basophil# 0.04 X10^3/uL; Basophil% 0.3 % (0-1); Eosinophils% 1.4 % (0-5); Hematocrit 40.8 % (37-47); Hemoglobin 14.7 g/dL (12.0-15.0); Lymphocyte # 3.27 X10^3/ul (0.83-4.51); Lymphocyte % 22.6 % (19-41); Mean Corpuscular Hgb 30.8 pg (27.0-32.0); Mean Corpuscular Volume 85.5 fL (81-99); Mean Platelet Vol. 9.5 fl (6.2-12.0); Monocyte# 1.35 X10^3/uL; Monocyte% 9.3 % (0-10); NRBC Flagged by Analyzer 0 % (0-5); Neutrophil # 9.51 X10^3/uL (2.7-7.7); Neutrophil % 65.6 % (47-70); Platelet Count 379 K/mm3 (150-450); RBC Distribution Width CV 12.1 % (11.6-14.6); RBC Distribution Width SD 37.6 fl (35.1-43.9); Red Blood Count 4.77 M/mm3 (4.2-5.4); White Blood Count 14.5 K/mm3 (4.4-11.0)
--- NOTE | 2023-07-01 18:05 | RAD_ITS ---
INDICATION: leukocytosis EXAMINATION/TECHNIQUE: X-RAY - portable upright AP chest x-ray COMPARISON: None. FINDINGS: LINES/DEVICES: None. LUNGS: No consolidation, edema or effusion. No pneumothorax. MEDIASTINUM AND CARDIOVASCULAR STRUCTURES: Cardiac silhouette not enlarged. Central airways and mediastinal contour are unremarkable. BONES AND SOFT TISSUES: No acute findings. RAD/Chest 1 View (Portable) IMPRESSION: No radiographic evidence of acute cardiopulmonary disease. Electronically Signed: Owen Rosas MD at 18:40 EDT ,
[2023-07-01 18:11] LABS: Troponin-I HS 106 pg/mL (3.0-54.0)
[2023-07-01 18:22] LABS: Bacteria 0 SEEN /hpf (None Seen); Mucous, Urine 0 SEEN /hpf (<or=2+); Red Blood Cells-Urine 0 SEEN /hpf (0-5)
[2023-07-01 18:51] LABS: Color, Urine Yellow (Yellow); Glucose, Dipstick Normal (Normal); Ketone-Dipstick Negative (Negative); Leukocyte Esterase-Dipstick Negative /ul (Negative); Nitrite-Dipstick Negative (Negative); Occult Blood-Urine 10 /ul (Negative); Protein-Dipstick Negative (Negative); Urine Bilirubin Dipstick Negative (Negative); Urine Clarity Clear (Clear); Urine Urobilinogen Normal (Normal); Urine pH 6.5 (5.0 - 8.0)
[2023-07-01 19:02] LABS: Prothrombin Time (Protime)PT. 13.5 SECONDS (11.7-14.9)
[2023-07-01] MEDS: Potassium Chloride Oral Tablet 20 MEQ 40 MEQ PO (19:04)
[2023-07-01 19:13] LABS: Troponin-I HS 101 pg/mL (3.0-54.0)
[2023-07-01 19:14] VITALS: BP 115/75; PULSE 67; RESP 12; TEMP 36.8; O2SAT 95
--- NOTE | 2023-07-01 19:16 | PCM.HP.STD ---
HPI - General General Date of Admission: 07/01/23 Date of Service: 07/01/23 Chief Complaint: Recent N/V/D, weakness, LH/Dizziness/Near syncope with fall. HPI Narrative The patient is a 67 y/o F w/ PMHx: Obesity, Hx CVA w/ carotid disease, HTN, HLD, Hypothyroidism, Chronic lumbar back pain with radiculopathy, Ulcerative colitis, Former Tobacco use, Diabetes mellitus type II who presents to the [facility] ED on 07/01/23 with history of increased fatigue and malaise diagnosed with a viral syndrome 5 days prior to current presentation per PCP with at that time nausea, emesis and diarrhea with both COVID and influenza negative assessments with improvement of both the diarrhea and emesis 3 days prior with increase in oral intake but still not enough with no dyspnea or chest pain however she is been having lightheadedness and did have a fall hitting her head on the ground with no loss of consciousness at that time and does report taking Plavix secondary to a stroke the past October with no residual deficits since then prompting eventual ED evaluation. She does live alone. She denies having had any abdominal cramping or pain with loose stools. She denies any recent antibiotic therapies. She denies anyone around her also being recently ill with similar symptoms. Patient notes quitting tobacco following her stroke but she does smoke daily cannabis but has not for the last 5 days but when she does it is daily. Work-up in the ED included T96.4, heart rate 66, BP 143/60, respiratory rate 20, 99% room air, CBC with WBC 14.5, hemoglobin 14.7, MCV 85.5, platelet 379 with left shift, unremarkable coags, BMP with sodium 127, potassium 3.3, chloride 91, glucose 214, 106 with repeat delta pending with most recent prior to this 11/02/22 troponin 12, EKG with prolonged QT along with more broad and T waves inferior lateral leads, urinalysis with negative nitrite, negative leukocyte Estrace with pending urine RBC/WBC/squamous epithelial cells as well as bacteria but not marked appearing currently and low suspicion for UTI, CT of the brain with no acute intracranial findings, chest x-ray with no acute cardiopulmonary findings. ED discussed case with Dr. Gray, Cardiology. In the ED patient started 1 L normal saline as well as potassium 40 mill equivalent p.o. x1. [facility] Medical History (Updated 07/01/23 @ 19:[address] Halley Hodges MD) Diabetes mellitus Former tobacco use Hypertension Hypothyroidism Irritable bowel syndrome 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 Lumbar disc herniation with radiculopathy Lumbar spinal stenosis Ulcerative colitis Vitamin D deficiency Home Medications ergocalciferol (vitamin D2) 1,250 mcg (50,000 unit) capsule 50,000 unit PO MOFR SUPPLEMENT 12/18/20 [History Last Taken 06/29/23] glimepiride 2 mg tablet 2 mg PO DINNER Blood sugar 12/18/20 [History Last Taken 07/01/23] thyroid (pork) 120 mg tablet 120 tablet PO SUMOTUWETHSA THYROID 12/18/20 [History Last Taken 07/01/23] thyroid (pork) 120 mg tablet 240 mg PO FR THYROID 12/18/20 [History Last Taken 06/26/23] carvedilol 6.25 mg tablet 6.25 mg PO BID HEART RATE 11/02/22 [History Last Taken 07/01/23] cyanocobalamin (vitamin B-12) 1,000 mcg tablet 3,000 mcg PO DAILY SUPPLEMENT 11/02/22 [History Last Taken 07/01/23] atorvastatin 80 mg tablet 80 mg PO QHS #30 tabs 11/04/22 [Rx Last Taken 06/30/23] clopidogrel 75 mg tablet 75 mg PO DAILY BLOOD THINNER #30 tabs 11/04/22 [Rx Last Taken 07/01/23] semaglutide 0.25 mg or 0.5 mg (2 mg/3 mL) subcutaneous pen injector (Ozempic) 0.5 mg subcut MO BLOOD SUGARS 03/16/23 [History Last Taken 06/29/23] elderberry fruit 200 mg capsule 1,000 mg PO DAILY SUPPLEMENT 07/01/23 [History Last Taken 07/01/23] Allergy/AdvReac Type Severity Reaction Status Date / Time aspirin Allergy mouth Verified 03/16/23 10:01 swelling gluten Allergy Abd Verified 03/16/23 10:01 cramps/diarrhea ibuprofen Allergy mouth Verified 03/16/23 10:01 swelling Sulfa (Sulfonamide Allergy pt can't Verified 03/16/23 10:01 Antibiotics) remember Family History (Updated 07/01/23 @ 19:[address] Halley Hodges MD) Mother Heart disease Father Heart disease Hypertension CAD (coronary artery disease) Myocardial infarction Thyroid disorder Diabetes Surgical History (Updated 07/01/23 @ 19:[address] Halley Hodges MD) History of lumbar discectomy History of lumbar fusion Hx of umbilical hernia repair S/P cholecystectomy S/P tonsillectomy and adenoidectomy S/P tubal ligation Social History (Updated 07/01/23 @ 19:[address] Halley Hodges MD) household members: none Smoking Status: Former smoker alcohol intake: never substance use type: marijuana and other details: Medical cannabis, usually daily. ROS ROS Narrative Admission Review of Systems: CONSTITUTIONAL: No weight loss, fever, chills, + weakness or fatigue. HEENT: + LH/dizziness. Eyes: No visual loss, blurred vision, double vision or yellow sclerae. Ears, Nose, Throat: No hearing loss, sneezing, congestion, runny nose or sore throat. SKIN: No rash or itching, lesions, wounds. CARDIOVASCULAR: + LH/Dizziness, near syncope. No chest pain, chest pressure or chest discomfort, palpitations, edema, orthopnea. RESPIRATORY: No shortness of breath, cough or sputum, wheezing, hemoptysis. GASTROINTESTINAL: + anorexia, nausea, vomiting, diarrhea. No abdominal pain, melena, BRBPR. GENITOURINARY: No dysuria, frequency, urgency or retention. NEUROLOGICAL: +LH/dizziness, near syncope. No headache, paralysis, ataxia, numbness or tingling in the extremities, focal weakness, change in bowel or bladder control, seizure. MUSCULOSKELETAL: + muscle, back pain, joint pain or stiffness. HEMATOLOGIC: + Easy bleeding or bruising. LYMPHATICS: No enlarged nodes. No history of splenectomy. PSYCHIATRIC: No history of depression or anxiety. ENDOCRINOLOGIC: No reports of sweating, cold or heat intolerance. No polyuria or polydipsia. ALLERGIES: No history of asthma, hives, eczema or rhinitis. Vital Signs Vital Signs Vital Signs: 07/01/23 16:47 07/01/23 17:27 07/01/23 17:55 Temperature 96.4 F L Temperature Source Temporal Pulse Rate 66 Respiratory Rate 20 H Respiratory Effort Normal Normal Respiratory Pattern Normal Normal Blood Pressure 143/68 H Blood Pressure Mean 93 Pulse Ox 99 Oxygen Delivery Method Room Air Weight Weight: 157 lb Body Mass Index (BMI) 30.7 Physical Exam Narrative Physical Examination: General: Awake, alert, oriented x 3 and cooperative, seated upright in the ED bed, fatigued and ill-appearing. Skin: Normal color, normal turgor, no icterus, no cyanosis except for staged ecchymoses to the right side of the face status post recent fall. HEENT: AT/NC, EOMI, PERRLA, dry MM, no carotid bruits or JVD noted. Lungs: CTA bilaterally, moderate effort, mild decrease BL bases, no rales, ronchi or wheezing. Heart: Currently regular rate and rhythm; no gallop, rub audible. Abdomen: Soft, obese, NTTP, ND, hyperactive BS, no HSM. Extremities: No cyanosis, clubbing, or edema. Neurological: Patient awake, alert, oriented as noted, cognitive function intact; pupils equally reactive to light and accommodation, cranial nerves grossly normal, moving all 4 extremities, no focal deficits, strength moderately to severely global decrease secondary to acute illness/presentation. Psychiatric: Affect appears flat, fatigued, ill-appearing, no acute evidence of depressive or anxiety feelings. Results Lab / Micro Data 07/01/23 17:24 07/01/23 17:24 Labs: Laboratory Results - last 24 hr 07/01/23 17:24: WBC 14.5 H, RBC 4.77, Hgb 14.7, Hct 40.8, MCV 85.5, MCH 30.8, MCHC 36.0, RDW Std Deviation 37.6, RDW Coeff of Neida 12.1, Plt Count 379, MPV 9.5, Immature Gran % (Auto) 0.800, Neut % (Auto) 65.6, Lymph % (Auto) 22.6, Falls % (Auto) 9.3, Eos % (Auto) 1.4, Baso % (Auto) 0.3, Absolute Neuts (auto) 9.5 H, Absolute Lymphs (auto) 3.27, Nucleated RBC % 0, Sodium 127 L, Potassium 3.3 L, Chloride 91 L, Carbon Dioxide 30.0, Anion Gap 6, BUN 15, Creatinine 0.80, Estim Creat Clear Calc 49.02, Est GFR (MDRD) Af Amer 92, Est GFR (MDRD) Non-Af 76, BUN/Creatinine Ratio 18.9, Glucose 214 H, Calcium 8.4 L, Troponin I High Sens 106 H 07/01/23 18:17: Urine Color Yellow, Urine Clarity Clear, Urine pH 6.5, Ur Specific [place] 1.010, Urine Protein Negative, Urine Glucose (UA) Normal, Urine Ketones Negative, Urine Occult Blood 10 H, Urine Nitrite Negative, Urine Bilirubin Negative, Urine Urobilinogen Normal, Ur Leukocyte Esterase Negative 07/01/23 18:48: PT 13.5, INR 1.0, APTT 26.0, Troponin I High Sens 101 H Radiology Impression Brain CT 07/01/23 17:23 IMPRESSION: No acute intracranial findings. Electronically Signed: Owen Rosas MD at 18:01 EDT , Chest X-Ray 07/01/23 18:05 IMPRESSION: No radiographic evidence of acute cardiopulmonary disease. Electronically Signed: Owen Rosas MD at 18:40 EDT , Assessment & Plan Assessment/Plan (1) Near syncope: PLAN: Plan The patient is a 67 y/o F w/ PMHx: Obesity, Hx CVA w/ carotid disease, HTN, HLD, Hypothyroidism, Chronic lumbar back pain with radiculopathy, Ulcerative colitis, Former Tobacco use, Diabetes mellitus type II who presents to the [facility] ED on 07/01/23 with history of increased fatigue and malaise diagnosed with a viral syndrome 5 days prior to current presentation per PCP with at that time nausea, emesis and diarrhea with both COVID and influenza negative assessments with improvement of both the diarrhea and emesis 3 days prior with increase in oral intake but still not enough with no dyspnea or chest pain however she is been having lightheadedness and did have a fall hitting her head on the ground with no loss of consciousness at that time and does report taking Plavix secondary to a stroke the past October with no residual deficits since then prompting eventual ED evaluation. #1. Recent acute viral syndrome versus acute viral gastroenteritis with associated near syncopal event and fall with lightheadedness/dizziness w/ concurrent #2 as noted: CT of the head with no acute intracranial findings, chest x-ray with no acute cardiopulmonary findings, labs not marked appearing aside from mild evidence of dehydration with recent decreased intake and GI losses as well as an indeterminate cardiac enzyme, will admit to PCU to be cautious, maintain on telemetry, cycle cardiac enzymes as noted, repeat EKGs as needed, orthostatics requested, echocardiogram requested, holding BB as noted w/ QT changes, will obtain full respiratory viral panel as well as COVID PCR given the timeline of symptoms, will obtain cdiff/enteric if recurrent diarrhea, in addition to continue judicious IV fluids, procalcitonin level, replete electrolyte disturbances, PT/OT/case management consultation for discharge planning. #2. Indeterminate cardiac enzyme with prolonged QT with inferior lead broadened: EKG in ED w/ prolonged QT along with more broad and T waves inferior lateral leads, CXR w/ no acute cardiopulmonary findings, initial trop 106 with repeat delta pending. Will place on a monitored with serial cardiac enzymes and EKGs. Both BB/spironolactone being held given GI losses and as noted QT prolongation with EKG changes. Supplementing K. Echocardiogram requested. Magnesium level requested. FLP in AM. Cardiology consulted. ASA, NG, morphine. #3. Hyponatremia, hypochloremia, suspected mild hypervolemia with GI losses as noted: Admission sodium 127, chloride 91, will judiciously hydrate and repeat CMP in AM. #4. Hypokalemia: Admission K+ 3.3, magnesium level, supplementation given, repeat level in AM. #5. Chronic back pain with radiculopathy: Patient with chronic lumbar back pain status post interventions, maintain on fall precautions, PT and OT assessments as well as case management for discharge planning. #6. History CVA with carotid disease: We will continue patient home Plavix, statin, temporarily holding BB regimen given presentation as noted, temporally holding oral diabetic regimen with adjustments as noted while inpatient. #7. Diabetes mellitus type II: Hold oral home regimen, start with clears and ADAT to ADA diet, accu checks w/ ISS. #8. Hypertension: Continue home regimen including coreg cautiously, temporarily holding BB regimen given presentation as noted, PRN hydralazine. #9. Hyperlipidemia: Continue home statin regimen. #10. Hypothyroidism: Continue home thyroid pork regimen. #11. Obesity: Weight loss and lifestyle changes encouraged. #12. Chart reported history ulcerative colitis: From current review of list not on any chronic regimen, encourage continued outpatient follow-up with gastroenterology as history also describes IBS thus unclear if a true diagnosis. #13. Former tobacco use: Encourage continued tobacco cessation. #14. DVT prophylaxis: Lovenox. #15. CODE status: Patient MG is her daughter who is present, living will is not in place. Full Code. Charges/Coding Visit Charges Inpatient E&M: 56962 Init Hosp L3
[2023-07-01 19:17] LABS: Squamous Epithelial Cells - UA 0-5 SEEN /hpf (5-10); White Blood Cells 0-5 SEEN /hpf (0-5)
[2023-07-01 20:10] VITALS: BP 119/67; PULSE 68; RESP 18; TEMP 36.6; O2SAT 98
[2023-07-01 20:15] VITALS: BP 119/67; BP 119/84; BP 139/82; PULSE 68; PULSE 70
--- NOTE | 2023-07-01 20:15 | ECHOD_ITS ---
Reason For Study: ARRHYTHMIA Procedure This was a 2D Doppler, Color Flow transthoracic echocardiogram. Exam performed portable in patient room. Left Ventricle Normal LV size. Left ventricular systolic function is normal. The estimated ejection fraction is 70 %. Stage 1 diastolic dysfunction. No regional wall motion abnormalities noted. Right Ventricle Normal RV size. Normal systolic function. Atria Normal left atrium. Normal right atrium. Mitral Valve There is moderate mitral annular calcification. Aortic Valve Trisinus/trileaflet aortic valve. Mild focal aortic valve calcification. Peak aortic valve gradient 39 mmHg. Mean aortic valve gradient 22 mmHg. Mild to moderate aortic stenosis. Pulmonic Valve Normal pulmonic valve. Great Vessels Normal aortic root. The pulmonary artery is normal size. Inferior vena cava collapse with respiration. Pericardium/Pleural Epicardial fat. MMode/2D Measurements & Calculations LVIDd: 4.4 cm IVSd: 0.91 cm LVOT diam: 2.0 cm LVIDs: 2.7 cm LVPWd: 1.0 cm LVOT area: 3.1 cm2 RVDd: 2.9 cm FS: 37.8 % Ao root diam: 3.0 cm LAV(MOD-bp): 33.7 ml LVAd ap4: 22.6 cm2 LAV(MOD-bp) Indexed: 20.0 ml/m2 LVLd ap4: 6.8 cm LAV(MOD-sp2): 31.8 ml EDV(MOD-sp4): 62.9 ml LAV(MOD-sp4): 31.8 ml EDV(sp4-el): 63.8 ml LVAs ap4: 11.0 cm2 LVLs ap4: 5.4 cm ESV(MOD-sp4): 18.7 ml ESV(sp4-el): 19.1 ml EF(MOD-sp4): 70.2 % EF(sp4-el): 70.0 % SV(MOD-sp4): 44.1 ml SV(sp4-el): 44.7 ml LA A4 area: 15.4 cm2 LA dimension(2D): 3.0 cm RA A4 area: 13.0 cm2 Time Measurements MV dec time: 0.27 sec Doppler Measurements & Calculations MV E max narendra: 80.3 cm/sec Lat Peak E' Narendra: 5.3 cm/sec Med Peak E' Narendra: 5.3 cm/sec MV A max narendra: 115.9 cm/sec E/E' lat: 15.3 E/E' med: 15.3 MV E/A: 0.69 Ao V2 max: 312.0 cm/sec LV V1 max: 137.5 cm/sec SV(LVOT): 94.1 ml Ao max P.9 mmHg LV V1 max P.6 mmHg Ao V2 mean: 221.5 cm/sec LV V1 mean P.7 mmHg Ao mean P.2 mmHg LV V1 mean: 103.7 cm/sec Ao V2 VTI: 58.3 cm LV V1 VTI: 30.6 cm AV (velocity ratio): 0.52 GREG(I,D): 1.6 cm2 GREG(V,D): 1.4 cm2 PA V2 max: 103.8 cm/sec ECHO/Echo Complete Interpretation Summary Normal LV size. Left ventricular systolic function is normal. The estimated ejection fraction is 70 %. Stage 1 diastolic dysfunction. There is moderate mitral annular calcification. Ordering Physician: Halley Hodges Referring Physician: TETO BAÑUELOS Performed By: Renée Ruiz RDCS
[2023-07-01 20:18] LABS: Magnesium 2.3 mg/dL (1.6-2.6)
[2023-07-01 20:20] VITALS: BMI 30.6
[2023-07-01 20:37] VITALS: PULSE 65; O2SAT 98
[2023-07-01] MEDS: 0.9% Normal Saline (1000mL) 1,000 ML 100 ML IV (20:50)
[2023-07-01 21:00] VITALS: O2SAT 100
[2023-07-01] MEDS: Atorvastatin Calcium 80 MG Tablet PO (21:28)
[2023-07-01] MEDS: Famotidine 20 MG Tablet PO (21:28)
[2023-07-01] MEDS: Insulin Lispro 100 UNIT/ML INSULN.PEN SC (22:05)
[2023-07-01 22:19] LABS: Bedside Glucose 160 mg/dL (74-106)
[2023-07-01 22:23] LABS: Procalcitonin < 0.04 ng/mL (0.00-0.09)
[2023-07-02 01:30] VITALS: BP 122/68; PULSE 72; RESP 18; TEMP 36.6; O2SAT 98
[2023-07-02 04:25] LABS: Absolute Lymphocyte Count 3.52 X10^3/uL (0.83-4.51); Absolute Neutrophil Count 7.3 X10^3/uL (2.0-7.7); Basophil# 0.03 X10^3/uL; Basophil% 0.2 % (0-1); Eosinophil# 0.32 X10^3/uL; Eosinophils% 2.6 % (0-5); Hematocrit 36.1 % (37-47); Hemoglobin 12.8 g/dL (12.0-15.0); Lymphocyte # 3.52 X10^3/ul (0.83-4.51); Lymphocyte % 28.5 % (19-41); Mean Corp Hgb Conc 35.5 g/dL (32-36); Mean Corpuscular Hgb 31.3 pg (27.0-32.0); Mean Corpuscular Volume 88.3 fL (81-99); Mean Platelet Vol. 9.2 fl (6.2-12.0); Monocyte# 1.11 X10^3/uL; NRBC Flagged by Analyzer 0 % (0-5); Neutrophil # 7.26 X10^3/uL (2.7-7.7); Neutrophil % 58.8 % (47-70); Platelet Count 315 K/mm3 (150-450); RBC Distribution Width CV 12.2 % (11.6-14.6); RBC Distribution Width SD 39.5 fl (35.1-43.9); Red Blood Count 4.09 M/mm3 (4.2-5.4); White Blood Count 12.4 K/mm3 (4.4-11.0)
[2023-07-02 04:36] VITALS: BMI 30.6
[2023-07-02 04:53] LABS: Troponin-I HS 79 pg/mL (3.0-54.0)
[2023-07-02 05:26] LABS: AST(SGOT) 16 U/L (15-37); Alanine Aminotransfer ALT/SGPT 18 U/L (13-56); Albumin, Serum 2.5 g/dL (3.2-5.0); Alkaline Phosphatase 75 U/L (45-117); Anion Gap 6 (5-15); BUN 11 mg/dL (7-18); BUN/Creat Ratio 20.3 RATIO (10-20); Calcium,Total 7.7 mg/dL (8.5-10.1); Chloride 102 mmol/L (98-107); Cholesterol 74 mg/dL (200); Creatinine, Serum 0.54 mg/dL (0.55-1.02); EST Glomerular Filtration Rate 119 mL/min (>60); Est Glom Filt Rate - Afr Amer 144 mL/min (>60); Estimated Creatinine Clearance 39.21 ml/min; Globulin 2.4 g/dL (2.2-4.2); Glucose 114 mg/dL (74-106); High Density Lipoprotein 42 mg/dL; Potassium 3.9 mmol/L (3.5-5.1); Protein, Total 4.9 g/dL (6.4-8.2); Sodium Level 134 mmol/L (136-145); T4 Free Direct 0.68 ng/dL (0.76-1.46); Thyroid Stim Hormone (TSH) 0.82 uIU/mL (0.358-3.74); Triglycerides 116 mg/dL; Very Low Density Lipoprotein 23 mg/dL (5-40)
--- NOTE | 2023-07-02 06:38 | EKGRS_ITS ---
Test Reason : AM EKG Blood Pressure : / mmHG Vent. Rate : 058 BPM Atrial Rate : 058 BPM P-R Int : 200 ms QRS Dur : 084 ms QT Int : 516 ms P-R-T Axes : -49 014 029 degrees QTc Int : 506 ms Unusual P axis, possible ectopic atrial bradycardia Prolonged QT Abnormal ECG When compared with ECG of 01-JUL-2023 17:26, MANUAL COMPARISON REQUIRED, DATA IS UNCONFIRMED Confirmed by KALIN TURNER, KIMBERLEY ([id number]), newspaper photo editor PAT CONTRERAS ([id number]) on 07/16/2023 11:13:10 AM Referred By: Confirmed By:KIMBERLEY GAGNON MD
[2023-07-02 06:45] VITALS: BP 130/70; PULSE 68; RESP 18; TEMP 36.4; O2SAT 98
[2023-07-02] MEDS: Thyroid 60 MG Tablet 120 MG PO (06:55)
[2023-07-02] MEDS: 0.9% Normal Saline (1000mL) 1,000 ML 100 ML IV (06:57)
--- NOTE | 2023-07-02 07:00 | EKG12_ITS ---
Test Reason : CHEST LOPEZ Blood Pressure : / mmHG Vent. Rate : 061 BPM Atrial Rate : 061 BPM P-R Int : 230 ms QRS Dur : 076 ms QT Int : 510 ms P-R-T Axes : 000 004 032 degrees QTc Int : 513 ms Sinus rhythm with 1st degree A-V block with Premature atrial complexes Low voltage QRS Prolonged QT Abnormal ECG When compared with ECG of 02-JUL-2023 05:17, MANUAL COMPARISON REQUIRED, DATA IS UNCONFIRMED Confirmed by KALIN TURNER, KIMBERLEY ([id number]), news copy editor PAT CONTRERAS ([id number]) on 07/16/2023 11:01:29 AM Referred By: LORENA Confirmed By:KIMBERLEY GAGNON MD
[2023-07-02 07:24] LABS: Bedside Glucose 120 mg/dL (74-106)
[2023-07-02 07:34] VITALS: O2SAT 99
[2023-07-02 09:52] VITALS: BP 141/70; PULSE 66; RESP 16; TEMP 37.1; O2SAT 99
[2023-07-02] MEDS: Famotidine 20 MG Tablet PO ×2 (09:56→21:46)
[2023-07-02] MEDS: Enoxaparin 40 MG/0.4 ML Syringe SC (09:56)
[2023-07-02] MEDS: Clopidogrel Bisulfate 75 MG Tablet PO (09:56)
[2023-07-02] MEDS: Insulin Lispro 100 UNIT/ML INSULN.PEN SC ×3 (10:51→21:45)
[2023-07-02 11:02] LABS: Bedside Glucose 195 mg/dL (74-106)
[2023-07-02 14:42] VITALS: BP 110/58; PULSE 64; RESP 16; TEMP 36.4; O2SAT 94
--- NOTE | 2023-07-02 17:06 | CASEMGMT ---
OLVIN CHONG note: OLVIN CHONG to room. Introduced self and role. Pt resting in bed. Sister @ bedside and pt agreeable to her being present during conversation w/OLVIN CHONG. SOTOMAYOR form explained re: Observation status for treatment of acute viral syndrome vs gastroenteritis associated with near syncope.? Explained hospitalization will be paid per?her insurance policy for Outpatient billing?and condition will continue to be evaluated for Inpt necessity. Also let pt know that [facility] sends paper in the billing packet with their phone number if questions arise. Pt verbalizes understanding and does not have further questions. ?Form signed, copy made and placed in chart, and original given to pt. Discussed discharge planning. Therapy notes have been reviewed and PT recommended additional therapy. Pt made aware. Discussed HHC and OP therapy and also made aware of [facility]'s requirements of being homebound. She states she is independent @ baseline but does not know how she will feel by the time she is discharged and states she may be homebound initially. She would like to wait and see how she feels tomorrow and states may be interested in doing either HHC or OP therapy. She denies having any other discharge planning needs or concerns at this time. She states she does not need any DME. She would like to get her meds from [facility] @ discharge and either her sister or dtr will take her home. Nichelle RAMOS RN, CM
[2023-07-02] MEDS: 0.9% Normal Saline (1000mL) 1,000 ML 125 ML IV (17:07)
--- NOTE | 2023-07-02 17:09 | PN.HOSP_ITS ---
Reason for Visit Reason for Visit: Diagnoses Syncope and collapse (07/01/23) Subjective Subjective Patient was seen and examined today, she did walk in the palafox with minimal assistance however the patient states she does not feel good, I have elected to keep her on IV fluids for another night and reevaluate her tomorrow. I stressed that her renal function is good, her white blood cell count is slightly elevated still, she is having no diarrhea, nausea, or vomiting. Echocardiogram today showed some mild to moderate aortic stenosis but otherwise was unremarkable. I talked briefly with cardiology today who stated that she did not have QT interval prolongation with her second EKG. I do not think that is necessary for cardiology to see the patient. Patient's cardiac enzymes only bumped up slightly, I do not think she had a non-STEMI. Objective Data Objective Data Vital Signs: Vital Signs Temp Pulse Resp BP Pulse Ox O2 Del Method 97.6 F L 64 16 110/58 L 94 Room Air 07/02/23 14:42 07/02/23 14:42 07/02/23 14:42 07/02/23 14:42 07/02/23 14:42 07/02/23 14:42 Oxygen Delivery Method Room Air Weight: 71.1 kg Body Mass Index (BMI) 30.6 Intake & Output: Intake and Output for Last 24 Hours 06/30/23 07/01/23 07/02/23 23:59 23:59 23:59 Intake Total 1000 / 1000 1000 / 1000 Balance 1000 / 1000 1000 / 1000 Lab / Micro Data 07/02/23 04:05 07/02/23 04:05 Labs: Laboratory Results - last 24 hr 07/01/23 17:24: WBC 14.5 H, RBC 4.77, Hgb 14.7, Hct 40.8, MCV 85.5, MCH 30.8, MCHC 36.0, RDW Std Deviation 37.6, RDW Coeff of Neida 12.1, Plt Count 379, MPV 9.5, Immature Gran % (Auto) 0.800, Neut % (Auto) 65.6, Lymph % (Auto) 22.6, [place] % (Auto) 9.3, Eos % (Auto) 1.4, Baso % (Auto) 0.3, Absolute Neuts (auto) 9.5 H, Absolute Lymphs (auto) 3.27, Nucleated RBC % 0, Sodium 127 L, Potassium 3.3 L, Chloride 91 L, Carbon Dioxide 30.0, Anion Gap 6, BUN 15, Creatinine 0.80, Estim Creat Clear Calc 49.02, Est GFR (MDRD) Af Amer 92, Est GFR (MDRD) Non-Af 76, BUN /Creatinine Ratio 18.9, Glucose 214 H, Calcium 8.4 L, Troponin I High Sens 106 H 07/01/23 18:17: Urine Color Yellow, Urine Clarity Clear, Urine pH 6.5, Ur Specific [place] 1.010, Urine Protein Negative, Urine Glucose (UA) Normal, Urine Ketones Negative, Urine Occult Blood 10 H, Urine Nitrite Negative, Urine Bilirubin Negative, Urine Urobilinogen Normal, Ur Leukocyte Esterase Negative, Urine RBC 0 SEEN, Urine WBC 0-5 SEEN, Ur Squamous Epith Cells 0-5 SEEN, Urine Bacteria 0 SEEN, Urine Mucus 0 SEEN 07/01/23 18:48: PT 13.5, INR 1.0, APTT 26.0, Magnesium 2.3, Troponin I High Sens 101 H 07/01/23 21:26: POC Glucose 160 H 07/01/23 21:31: Procalcitonin < 0.04 07/02/23 04:05: WBC 12.4 H, RBC 4.09 L, Hgb 12.8, Hct 36.1 L, MCV 88.3, MCH 31.3, MCHC 35.5, RDW Std Deviation 39.5, RDW Coeff of [place] 12.2, Plt Count 315, MPV 9.2, Immature Gran % (Auto) 0.900, Neut % (Auto) 58.8, Lymph % (Auto) 28.5, [place] % (Auto) 9.0, Eos % (Auto) 2.6, Baso % (Auto) 0.2, Absolute Neuts (auto) 7.3, Absolute Lymphs (auto) 3.52, Nucleated RBC % 0, Sodium 134 L, Potassium 3.9, Chloride 102, Carbon Dioxide 26.0, Anion Gap 6, BUN 11, Creatinine 0.54 L, Estim Creat Clear Calc 39.21, Est GFR (MDRD) Af Amer 144, Est GFR (MDRD) Non-Af 119, BUN/Creatinine Ratio 20.3 H, Glucose 114 H, Calcium 7.7 L, Total Bilirubin 0.60, AST 16, ALT 18, Alkaline Phosphatase 75, Troponin I High Sens 79 H, Total Protein 4.9 L, Albumin 2.5 L, Globulin 2.4, Albumin/Globulin Ratio 1.0, Triglycerides 116, Cholesterol 74, LDL Cholesterol 9, VLDL Cholesterol 23, HDL Cholesterol 42, TSH 0.82, Free T4 0.68 L 07/02/23 07:01: POC Glucose 120 H 07/02/23 10:42: POC Glucose 195 H Micro: Microbiology 07/02/23 08:50 Stool Enteric Bacteriology - Final 07/02/23 08:50 Stool C. difficile DNA Amplification - Final 07/01/23 21:00 Mucosa - Nasopharyngeal Respiratory Panel (PCR) - Final 07/01/23 21:00 Mucosa - Nasopharyngeal Coronavirus COVID-19 PCR - Final Radiography Diagnostic Testing: Radiology Impression Brain CT 07/01/23 17:23 IMPRESSION: No acute intracranial findings. Electronically Signed: Owen Rosas MD at 18:01 EDT , Chest X-Ray 07/01/23 18:05 IMPRESSION: No radiographic evidence of acute cardiopulmonary disease. Electronically Signed: Owen Rosas MD at 18:40 EDT , Echocardiogram 07/01/23 20:15 Interpretation Summary Normal LV size. Left ventricular systolic function is normal. The estimated ejection fraction is 70 %. Stage 1 diastolic dysfunction. There is moderate mitral annular calcification. Ordering Physician: Halley Hodges Referring Physician: TETO BAÑUELOS Performed By: Renée Ruiz RDCS Physical Exam Const alert, oriented x3, no apparent distress and average body habitus General Appearance: cooperative, well kempt and well developed Orientation / Consciousness: awake, oriented to person, oriented to place and oriented to time HEENT normocephalic, head/scalp atraumatic and moist oral mucous membranes Eyes PERRL, EOMs intact bilaterally and conjunctivae normal Neck supple, no JVD, thyroid normal and no carotid bruits General: trachea midline Resp normal respiratory effort, no retractions, no use of accessory muscles and clear to auscultation bilaterally Auscultation: Negative for rales, rhonchi or wheezes Cardio regular rate, regular rhythm, S1 normal heart sound, S2 normal heart sound, no rub and no gallops Cardio Narrative: There is a 2/6 systolic murmur noted at the apex, right sternal border, and left sternal border GI normal to inspection, nondistended, normoactive bowel sounds, soft to palpation, non-tender and non-distended Extremity no clubbing, cyanosis or edema Skin no rashes or lesions noted General Skin Exam: no breakdown Neuro oriented x3, CN's II-XII intact bilaterally, moves all extremities, no focal motor deficits and no sensory deficits noted Sensorium / Orientation: awake, alert, oriented to person, oriented to place and oriented to time Speech: speech normal Psych affect normal Assessment & Plan Assessment/Plan (1) Elevated troponin: PLAN: Plan 1. Acute debility-secondary to probable acute viral syndrome, patient will continue to receive IV fluids, she will be seen by PT and OT again tomorrow #2 elevated troponin-etiology unclear, I do not feel that she has had a non- STEMI #3 Hyponatremia-this is essentially been corrected, patient's sodium today was 134 #4 hypokalemia-this is resolved at this time #5 mild leukocytosis-possibly secondary to recent viral illness, CBC will be repeated tomorrow #6 prolonged QT interval on admission EKG-again this was felt to be secondary to taking Zofran for nausea and vomiting at home. QT interval is still slightly prolonged but she is not having any arrhythmias. Total clinical time spent by myself addressing the patient's medical issues, reviewing all of her data, and collaborating with patient's care team: 35 minutes Charges/Coding Visit Charges Inpatient E&M: 01056 Subs Hosp L2
[2023-07-02 17:19] LABS: Bedside Glucose 165 mg/dL (74-106)
[2023-07-02] MEDS: Atorvastatin Calcium 80 MG Tablet PO (21:45)
[2023-07-02 21:50] VITALS: BP 133/71; PULSE 64; RESP 15; TEMP 36.7; O2SAT 98
[2023-07-02 23:51] LABS: Bedside Glucose 246 mg/dL (74-106)
[2023-07-03] MEDS: 0.9% Normal Saline (1000mL) 1,000 ML 125 ML IV (00:34)
[2023-07-03 03:00] VITALS: BP 104/64; PULSE 57; RESP 16; TEMP 37; O2SAT 96
[2023-07-03 05:54] VITALS: BMI 30.7
[2023-07-03 06:20] LABS: Absolute Lymphocyte Count 4.06 X10^3/uL (0.83-4.51); Absolute Neutrophil Count 5.5 X10^3/uL (2.0-7.7); Basophil# 0.03 X10^3/uL; Basophil% 0.3 % (0-1); Eosinophil# 0.31 X10^3/uL; Eosinophils% 2.8 % (0-5); Hematocrit 32.6 % (37-47); Hemoglobin 10.9 g/dL (12.0-15.0); Lymphocyte # 4.06 X10^3/ul (0.83-4.51); Lymphocyte % 37.2 % (19-41); Mean Corp Hgb Conc 33.4 g/dL (32-36); Mean Corpuscular Hgb 30.3 pg (27.0-32.0); Mean Corpuscular Volume 90.6 fL (81-99); Mean Platelet Vol. 9.4 fl (6.2-12.0); Monocyte# 0.98 X10^3/uL; NRBC Flagged by Analyzer 0 % (0-5); Neutrophil # 5.47 X10^3/uL (2.7-7.7); Neutrophil % 50.1 % (47-70); Platelet Count 315 K/mm3 (150-450); RBC Distribution Width CV 12.3 % (11.6-14.6); RBC Distribution Width SD 40.6 fl (35.1-43.9); White Blood Count 10.9 K/mm3 (4.4-11.0)
[2023-07-03] MEDS: Thyroid 60 MG Tablet 240 MG PO (06:33)
[2023-07-03 07:07] LABS: Anion Gap 4 (5-15); BUN 6 mg/dL (7-18); BUN/Creat Ratio 11.3 RATIO (10-20); Calcium,Total 7.4 mg/dL (8.5-10.1); Chloride 104 mmol/L (98-107); Creatinine, Serum 0.53 mg/dL (0.55-1.02); EST Glomerular Filtration Rate 121 mL/min (>60); Est Glom Filt Rate - Afr Amer 147 mL/min (>60); Estimated Creatinine Clearance 39.21 ml/min; Glucose 94 mg/dL (74-106); Potassium 3.1 mmol/L (3.5-5.1); Sodium Level 135 mmol/L (136-145)
[2023-07-03 07:54] LABS: Bedside Glucose 97 mg/dL (74-106)
[2023-07-03 08:40] VITALS: BP 139/55; PULSE 69; RESP 16; TEMP 36.6; O2SAT 97
[2023-07-03] MEDS: Famotidine 20 MG Tablet PO (08:44)
[2023-07-03] MEDS: Potassium Chloride Oral Tablet 20 MEQ 60 MEQ PO (08:45)
[2023-07-03] MEDS: Clopidogrel Bisulfate 75 MG Tablet PO (08:45)
[2023-07-03] MEDS: Enoxaparin 40 MG/0.4 ML Syringe SC (08:45)
--- NOTE | 2023-07-03 10:12 | CASEMGMT ---
OLVIN CHONG NOTE: Per Dr Fuentes, pt is discharging today. OLVIN CHONG reviewed therapy notes from this AM. No additional therapy recommended. OLVIN CHONG to room. Pt made aware. She states she still may be interested in going to OP therapy and would like a script for it, in case she is not back by her baseline on Thursday. She was made aware she can take to any location of her choice, that they would do eval @ 1st visit and then would let her know if treatment is recommended at that time. She voices understanding. Script provided to pt. Pt denies having other discharge planning needs or concerns. Nichelle RAMOS RN CM
--- NOTE | 2023-07-03 10:23 | DCINST_ITS ---
Discharge Instructions Diet Discharge Diet: No restrictions Activity Discharge Activity: Return to Normal Activity Weight Bearing Status: Full weight bearing Follow Up Care Test Results: Test results from this visit will be discussed in further detail at your follow- up appointment, if applicable. Discharge Plan Admission Admit Date/Time: 07/01/23 19:17 Primary Reason for Your Visit: presyncope, debility, hypokalemia Attending Provider: Abisai Fuentes Primary Care Provider: Preet Farrar Consulting Providers: Halley Hodges Discharge Orders/Prescriptions Prescriptions: Continued Ozempic 0.25 mg or 0.5 mg (2 mg/3 mL) pen injector 0.5 mg subcut MO thyroid (pork) 120 MG tablet 120 tablet PO SUMOTUWETHSA thyroid (pork) 120 MG tablet 240 mg PO FR glimepiride 2 MG tablet 2 mg PO DINNER ergocalciferol (vitamin D2) 50,000 UNIT capsule 50,000 unit PO MOFR cyanocobalamin (vitamin B-12) 1,000 mcg tablet 3,000 mcg PO DAILY atorvastatin 80 mg Tablet 80 mg PO QHS Qty: 30 2RF clopidogrel 75 mg Tablet 75 mg PO DAILY Qty: 30 2RF elderberry fruit 200 mg capsule 1,000 mg PO DAILY Discontinued carvedilol 6.25 mg tablet 6.25 mg PO BID Referrals / Follow Up: Preet Farrar DO [Primary Care Provider] - In 1 Week Disposition Disposition (needs filled in before D/C Order can be placed): Home, Self Care
--- NOTE | 2023-07-03 10:46 | DS.PCM_ITS ---
Providers Date of Admission: 07/01/23 Date of Discharge: 07/03/23 Primary Care Physician: Dr. Preet Farrar, Reason For Visit: VIRAL SYND/GASTRO, INDETER TROP, NEAR SYNCOPE Diagnosis Discharge Diagnosis (1) Elevated troponin: Status: Acute Code(s): R79.89 - Other specified abnormal findings of blood chemistry Plan 1. Acute debility-secondary to probable acute viral syndrome, patient will continue to receive IV fluids, she will be seen by PT and OT again tomorrow #2 elevated troponin-etiology unclear, I do not feel that she has had a non- STEMI #3 Hyponatremia-this is essentially been corrected, patient's sodium today was 134 #4 hypokalemia-this is resolved at this time #5 mild leukocytosis-possibly secondary to recent viral illness, CBC will be repeated tomorrow #6 prolonged QT interval on admission EKG-again this was felt to be secondary to taking Zofran for nausea and vomiting at home. QT interval is still slightly prolonged but she is not having any arrhythmias. Total clinical time spent by myself addressing the patient's medical issues, reviewing all of her data, and collaborating with patient's care team: 35 minutes Medications at Discharge Home Medications ergocalciferol (vitamin D2) 1,250 mcg (50,000 unit) capsule 50,000 unit PO MOFR SUPPLEMENT 12/18/20 glimepiride 2 mg tablet 2 mg PO DINNER Blood sugar 12/18/20 thyroid (pork) 120 mg tablet 120 tablet PO SUMOTUWETHSA THYROID 12/18/20 thyroid (pork) 120 mg tablet 240 mg PO FR THYROID 12/18/20 cyanocobalamin (vitamin B-12) 1,000 mcg tablet 3,000 mcg PO DAILY SUPPLEMENT 11/02/22 atorvastatin 80 mg tablet 80 mg PO QHS cholesterol #30 tabs 11/04/22 clopidogrel 75 mg tablet 75 mg PO DAILY BLOOD THINNER #30 tabs 11/04/22 semaglutide 0.25 mg or 0.5 mg (2 mg/3 mL) subcutaneous pen injector (Ozempic) 0.5 mg subcut MO BLOOD SUGARS 03/16/23 elderberry fruit 200 mg capsule 1,000 mg PO DAILY SUPPLEMENT 07/01/23 Hospital Course Operations None Procedures None Summary of Care Provided Minutes Spent on Discharge: 32 Hospital Course: This 67-year-old white female was seen in the emergency room at [facility] with complaints of weakness and malaise. She had been diagnosed with a viral syndrome a few days prior by her PCP, at that time she had vomiting and diarrhea. She had a COVID and influenza test done as an outpatient which was negative, patient stated her diarrhea and vomiting stopped 3 days prior. Work-up in the emergency room included an EKG which showed prolonged QT interval, patient had been taking Zofran intermittently at home for nausea and it was felt that this could have caused the prolonged QT interval. Patient's troponin was slightly elevated at 106, patient had no complaints of any chest discomfort. Cardiology was contacted by the emergency room physician, cardiology recommended holding patient's beta-blockers and administering p otassium replacement. Patient's CBC showed an elevated white blood cell count 14.5, potassium was slightly low at 3.3 and sodium was low at 127. Patient was placed into observation status on PCU, she had an echocardiogram performed which showed no abnormality, patient had no arrhythmias during her hospitalization and she was given potassium replacement and IV fluids. Patient was seen by physical therapy. On 07/03/2023, patient was seen and examined: On examination she appeared in good health and spirits, she does not appear to be in any distress. Vital signs as documented. Skin warm and dry and without overt rashes. Neck without JVD, thyroid appears normal, trachea is midline, neck is supple. Lungs clear, normal air movement was noted. Heart exam notable for regular rhythm, normal sounds and absence of murmurs, rubs or gallops. Abdomen unremarkable and without evidence of organomegaly, masses, or abdominal aortic enlargement, bowel sounds are present in all 4 quadrants, no abdominal tenderness was noted. Extremities nonedematous, no cyanosis was noted, no clubbing was noted. Neuro: Cranial nerves II through XII are grossly intact, no focal motor deficits were noted, sensation to light touch and pinprick is intact, motor exam 5/5 throughout. Psych: Patient is alert and oriented x3, she does not appear anxious or depressed, she does not appear agitated. Patient was felt to be stable for discharge home on 07/03/2023. Weight / BMI Weight Weight: 71.4 kg Body Mass Index (BMI) 30.7 ABG / Lab / Microbiology Data 07/03/23 05:28 07/03/23 05:28 Laboratory: Laboratory Results - last 24 hr 07/02/23 10:42: POC Glucose 195 H 07/02/23 17:00: POC Glucose 165 H 07/02/23 21:44: POC Glucose 246 H 07/03/23 05:28: WBC 10.9, RBC 3.60 L, Hgb 10.9 L, Hct 32.6 L, MCV 90.6, MCH 30.3, MCHC 33.4 D, RDW Std Deviation 40.6, RDW Coeff of [place] 12.3, Plt Count 315, MPV 9.4, Immature Gran % (Auto) 0.600, Neut % (Auto) 50.1, Lymph % (Auto) 37.2, [place] % (Auto) 9.0, Eos % (Auto) 2.8, Baso % (Auto) 0.3, Absolute Neuts (auto) 5.5, Absolute Lymphs (auto) 4.06, Nucleated RBC % 0, Sodium 135 L, Potassium 3.1 L, Chloride 104, Carbon Dioxide 27.0, Anion Gap 4 L, BUN 6 L, Creatinine 0.53 L, Estim Creat Clear Calc 39.21, Est GFR (MDRD) Af Amer 147, Est GFR (MDRD) Non-Af 121, BUN/Creatinine Ratio 11.3, Glucose 94, Calcium 7.4 L 07/03/23 06:36: POC Glucose 97 Microbiology: Microbiology 07/02/23 08:50 Stool Enteric Bacteriology - Final 07/02/23 08:50 Stool C. difficile DNA Amplification - Final 07/01/23 21:00 Mucosa - Nasopharyngeal Respiratory Panel (PCR) - Final 07/01/23 21:00 Mucosa - Nasopharyngeal Coronavirus COVID-19 PCR - Final Radiography Diagnostic Testing: Radiology Impression Echocardiogram 07/01/23 20:15 Interpretation Summary Normal LV size. Left ventricular systolic function is normal. The estimated ejection fraction is 70 %. Stage 1 diastolic dysfunction. There is moderate mitral annular calcification. Ordering Physician: Halley Hodges Referring Physician: PREET FARRAR Performed By: Renée Ruiz RDCS D/C Instructions Discharge Diet: No restrictions Weight Bearing Status: Full weight bearing Meaningful Use Info Meaningful Use Diagnoses (Choose all that apply): None applicable Discharge Plan Admission Admit Date/Time: 07/01/23 19:17 Primary Reason for Your Visit: presyncope, debility, hypokalemia Attending Provider: Abisai Fuentes Primary Care Provider: Preet Farrar Consulting Providers: Halley Hodges Discharge Orders/Prescriptions Prescriptions: Continued Ozempic 0.25 mg or 0.5 mg (2 mg/3 mL) pen injector 0.5 mg subcut MO thyroid (pork) 120 MG tablet 120 tablet PO SUMOTUWETHSA thyroid (pork) 120 MG tablet 240 mg PO FR glimepiride 2 MG tablet 2 mg PO DINNER ergocalciferol (vitamin D2) 50,000 UNIT capsule 50,000 unit PO MOFR cyanocobalamin (vitamin B-12) 1,000 mcg tablet 3,000 mcg PO DAILY atorvastatin 80 mg Tablet 80 mg PO QHS Qty: 30 2RF clopidogrel 75 mg Tablet 75 mg PO DAILY Qty: 30 2RF elderberry fruit 200 mg capsule 1,000 mg PO DAILY Discontinued carvedilol 6.25 mg tablet 6.25 mg PO BID Referrals / Follow Up: Preet Farrar DO [Primary Care Provider] - In 1 Week Disposition Disposition (needs filled in before D/C Order can be placed): Home, Self Care Charges/Coding Visit Charges Inpatient E&M: 12074 Disch Hosp >30min
--- NOTE | 2023-07-03 11:47 | PHA.DC.MR.R ---
Pharmacy [place] Med Reconciliation Pharmacy Service has performed discharge medication reconciliation for this patient. No new medications at time of discharge review. Medications reviewed are from previously reported home medications. The patient's discharge medication list was reviewed for discrepancies and discrepancies were resolved. Medications at Discharge Home Medications ergocalciferol (vitamin D2) 1,250 mcg (50,000 unit) capsule 50,000 unit PO MOFR SUPPLEMENT 12/18/20 glimepiride 2 mg tablet 2 mg PO DINNER Blood sugar 12/18/20 thyroid (pork) 120 mg tablet 120 tablet PO SUMOTUWETHSA THYROID 12/18/20 thyroid (pork) 120 mg tablet 240 mg PO FR THYROID 12/18/20 cyanocobalamin (vitamin B-12) 1,000 mcg tablet 3,000 mcg PO DAILY SUPPLEMENT 11/02/22 atorvastatin 80 mg tablet 80 mg PO QHS cholesterol #30 tabs 11/04/22 clopidogrel 75 mg tablet 75 mg PO DAILY BLOOD THINNER #30 tabs 11/04/22 semaglutide 0.25 mg or 0.5 mg (2 mg/3 mL) subcutaneous pen injector (Ozempic) 0.5 mg subcut MO BLOOD SUGARS 03/16/23 elderberry fruit 200 mg capsule 1,000 mg PO DAILY SUPPLEMENT 07/01/23
[2023-07-03 12:22] LABS: Bedside Glucose 194 mg/dL (74-106)
== END 2023-07-03 10:46 | disposition home or self-care (01) ==
LOC: ED 19:05 → PCU 19:40
PROVIDERS: Admitting Provider Family Medicine; Emergency Provider Emergency Medicine; PCP Student in an Organized Health Care Education/Training Program; Visit Provider Internal Medicine
DX: R53.81 Other malaise (principal); K51.90 Ulcerative colitis, unspecified, without complications; E11.9 Type 2 diabetes mellitus without complications; R79.9 Abnormal finding of blood chemistry, unspecified; I10 Essential (primary) hypertension; R94.31 Abnormal electrocardiogram [ECG] [EKG]; Z79.82 Long term (current) use of aspirin; Z79.84 Long term (current) use of oral hypoglycemic drugs; Z87.891 Personal history of nicotine dependence; Z20.822 Contact with and (suspected) exposure to COVID-19; E87.6 Hypokalemia; S09.90XA Unspecified injury of head, initial encounter; E87.1 Hypo-osmolality and hyponatremia; E78.5 Hyperlipidemia, unspecified; Z79.02 Long term (current) use of antithrombotics/antiplatelets; I35.0 Nonrheumatic aortic (valve) stenosis; Z86.73 Personal history of transient ischemic attack (TIA), and cerebral infarction without residual deficits; Z79.890 Hormone replacement therapy; Z79.899 Other long term (current) drug therapy; E03.9 Hypothyroidism, unspecified; W19.XXXA Unspecified fall, initial encounter
CPT/HCPCS: 36415; 70450; 71045; 80048; 80053; 80061; 81001; 82962; 83735; 84145; 84439; 84443; 84484; 85025; 85610; 85730; 87493; 87506; 87633; 87635; 93005; 93306; 94668; 96360; 96361; 96372; 97110; 97162; 97165; 99221; 99252; 99285; 99406; J7030; A4216; G0378; G0463

== ENCOUNTER → 2023-07-27 | Outpatient (CLI) | payer MEDICARE, MEDICAID, SELFPAY ==
[2023-07-27 16:52] LABS: Anion Gap 6 (5-15); BUN 13 mg/dL (7-18); BUN/Creat Ratio 20.1 RATIO (10-20); Calcium,Total 9.4 mg/dL (8.5-10.1); Chloride 104 mmol/L (98-107); Creatinine, Serum 0.65 mg/dL (0.55-1.02); EST Glomerular Filtration Rate 97 mL/min (>60); Est Glom Filt Rate - Afr Amer 117 mL/min (>60); Glucose 120 mg/dL (74-106); Potassium 3.1 mmol/L (3.5-5.1); Sodium Level 136 mmol/L (136-145)
== END | disposition home or self-care (01) ==
LOC: MTLAB 11:55
PROVIDERS: PCP Student in an Organized Health Care Education/Training Program; Referring Provider Psychiatry & Neurology Neurology; Visit Provider Psychiatry & Neurology Neurology
DX: E87.6 Hypokalemia (principal); G62.9 Polyneuropathy, unspecified
CPT/HCPCS: 36415; 80048

== ENCOUNTER → 2023-12-17 | Outpatient (CLI) | payer MEDICARE, MEDICAID, SELFPAY ==
[2023-12-14 14:37] LABS: BUN 22 mg/dL (7-18); Creatinine, Serum 0.76 mg/dL (0.55-1.02); EST Glomerular Filtration Rate 80 mL/min (>60); Est Glom Filt Rate - Afr Amer 97 mL/min (>60)
--- NOTE | 2023-12-17 13:49 | CT_ITS ---
STUDY: CTA NECK WITH CONTRAST REASON FOR EXAM: Female, 68 years old. OCCLUSION BILAT CAROTID patient is on anticoagulation. RADIATION DOSAGE (If Supplied By Facility): CTDIvol = ( 14.06 ) mGy, DLP = ( 416.67 ) mGycm TECHNIQUE: CT angiography with multi-detector data acquisition was performed from the aortic arch to the skull base following intravenous administration of IV 100mL [id number]-[id number]. MIP images were reconstructed from the axial data set. Post-processing of the angiographic images was performed, with multiplanar reformation and 3D reconstruction. Individualized dose optimization techniques were used for this CT. COMPARISON: Comparison is made with prior study dated September 02, 2023. FINDINGS: AORTIC ARCH: There is atherosclerotic calcific plaque formation of the aortic arch and great vessels arising from the aortic arch, without a hemodynamically significant stenosis. There is a normal origin of the brachiocephalic, left common carotid, and left subclavian arteries. Atherosclerotic plaque at the origin of the left subclavian artery. RIGHT CAROTID ARTERIES: Normal right common carotid artery (CCA). Normal right common carotid bulb. There is mild atherosclerotic plaque formation of the origin of the right internal carotid artery with less than 50% cross sectional diameter stenosis. Normal visualized cervical portion of the right internal carotid artery. Normal origin of the right external carotid artery (ECA). LEFT CAROTID ARTERIES: Normal left common carotid artery (CCA). Normal left common carotid bulb. There is complete occlusion of the origin of the left internal carotid artery without demonstrated arterial flow. Normal visualized cervical portion of the left internal carotid artery. There is extensive atherosclerotic plaque formation of the origin of the left external carotid artery with an estimated stenosis of greater than 70%. VERTEBRAL ARTERIES: There is enhancement within the bilateral vertebral arteries with a small right vertebral artery, and a dominant left vertebral artery. High-grade stenosis at the subclavian origins of both vertebral arteries. 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 Mild plaque formation at the conclusion of the right internal carotid artery. Dominant left vertebral artery. Electronically Signed: Rickey Dumont MD at 15:49 EDT ,
== END | disposition home or self-care (01) ==
LOC: CT 13:47
PROVIDERS: PCP Student in an Organized Health Care Education/Training Program; Referring Provider Surgery Vascular Surgery; Visit Provider Surgery Vascular Surgery
DX: I65.23 Occlusion and stenosis of bilateral carotid arteries (principal); E11.9 Type 2 diabetes mellitus without complications; Z79.85 Long-term (current) use of injectable non-insulin antidiabetic drugs; Z79.84 Long term (current) use of oral hypoglycemic drugs
CPT/HCPCS: 36415; 70498; 82565; 84520; Q9967; A4216

== ENCOUNTER 2024-03-05 12:30 | Inpatient (IN) | payer MEDICARE, MEDICAID, SELFPAY ==
[2024-03-05 12:31] VITALS: BP 136/92; PULSE 103; RESP 16; TEMP 36.4; O2SAT 97; BMI 30.7
--- NOTE | 2024-03-05 12:55 | EX.ED.DYSGE1 ---
HPI <TRENA Elizondo - Last Filed: 03/05/24 16:08> History of Present Illness Chief Complaint: Hyperglycemia Narrative Narrative: Patient presenting today due to hyperglycemia. She reports that she was having some nausea and vomiting yesterday. She reports that for the most part her symptoms have resolved but she is still slightly nauseous. Today she was feeling weak and unwell and decided to check her blood sugar and it was 446, her family member at that time called EMS due to concerns for hyperglycemia. Patient has a history of T2DM and takes Ozempic, her last injection was on Thursday. She denies fevers, chills, abdominal pain, hematemesis, and diarrhea. [facility] <TRENA Elizondo - Last Filed: 03/05/24 16:08> [facility] Medical History (Updated 03/05/24 @ 15:22 by Magalys Miles) Anxiety Depression Diabetes Former smoker Stroke/cerebrovascular accident Former tobacco use Head injury Near syncope Elevated troponin Abnormal EKG Hyponatremia Prolonged QT interval 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 Irritable bowel syndrome Ulcerative colitis Hypothyroidism Hypertension Vitamin D deficiency Diabetes mellitus Lumbar spinal stenosis Lumbar disc herniation with radiculopathy Home Medications ?Medication ?Instructions ?Recorded ?Last Taken ?Type ergocalciferol (vitamin D2) 1,250 50,000 unit PO MOFR SUPPLEMENT 12/18/20 03/04/24 History mcg (50,000 unit) capsule thyroid (pork) 120 mg tablet 120 tablet PO DAILY THYROID 12/18/20 03/04/24 History atorvastatin 80 mg tablet 80 mg PO QHS cholesterol #30 tabs 11/04/22 03/04/24 Rx clopidogrel 75 mg tablet 75 mg PO DAILY BLOOD THINNER #30 11/04/22 03/04/24 Rx tabs elderberry fruit 200 mg capsule 1,000 mg PO DAILY SUPPLEMENT 07/01/23 03/05/24 History carvedilol 6.25 mg tablet 6.25 mg PO BID 03/05/24 03/05/24 History semaglutide 1 mg/dose (4 mg/3 mL) 1 mg subcut QWEEK 03/05/24 02/29/24 History subcutaneous pen injector (Ozempic) spironolactone 25 mg tablet 25 mg PO DAILY 03/05/24 03/04/24 History Allergy/AdvReac Type Severity Reaction Status Date / Time prednisone Allergy Intermediate Itching Verified 03/05/24 12:31 aspirin Allergy mouth Verified 03/05/24 12:31 swelling gluten Allergy Abd Verified 03/05/24 12:31 cramps/diarrhea ibuprofen Allergy mouth Verified 03/05/24 12:31 swelling Sulfa (Sulfonamide Allergy pt can't Verified 03/05/24 12:31 Antibiotics) remember Family History Mother Heart disease Father Heart disease Hypertension CAD (coronary artery disease) Myocardial infarction Thyroid disorder Diabetes Surgical History Hx of umbilical hernia repair S/P tubal ligation S/P cholecystectomy S/P tonsillectomy and adenoidectomy History of lumbar fusion History of lumbar discectomy Social History household members: none Smoking Status: Former smoker alcohol intake: never substance use type: marijuana and other details: Medical cannabis, usually daily. ROS <TRENA Elizondo - Last Filed: 03/05/24 16:08> ROS ED Constitutional Constitutional ED: Denies chills or fever(s) Cardiovascular Cardiovascular: Denies chest pain Respiratory/Chest Respiratory/Chest: Denies cough or dyspnea Gastrointestinal Gastrointestinal: Reports diarrhea, nausea and vomiting; Denies abdominal pain, constipation or hematemesis Genitourinary Genitourinary ED: Denies dysuria Neurologic Neurologic: Reports weakness EXAM <TRENA Elizondo - Last Filed: 03/05/24 16:08> Physical Exam Const Vital Signs: 03/05/24 12:31 03/05/24 12:39 03/05/24 14:18 Temperature 97.6 F L 97.8 F Temperature Source Oral Pulse Rate 103 H 62 Respiratory Rate 16 14 Respiratory Effort Normal Non-Labored Respiratory Pattern Normal Blood Pressure 136/92 H 105/62 Blood Pressure Mean 106 76 Pulse Ox 97 96 Oxygen Delivery Method Room Air 03/05/24 14:30 Temperature Temperature Source Pulse Rate 92 Respiratory Rate 14 Respiratory Effort Respiratory Pattern Blood Pressure 145/71 H Blood Pressure Mean 95 Pulse Ox 98 Oxygen Delivery Method Room Air Positive well nourished, well developed and no apparent distress General Appearance ED: well developed HEENT Reports normocephalic, head/scalp atraumatic and dry mucous membranes Mouth ED: Yes dry mucous membranes Mouth: dry mucous membranes Eyes PERRL and EOMs intact bilaterally Neck full ROM and supple Chest Wall inspection of chest normal Resp normal respiratory effort and clear to auscultation bilaterally Cardio regular rate and regular rhythm GI soft to palpation, non-tender, non-distended and no masses Back/Spine normal ROM and normal to inspection Extremity normal to inspection and full ROM Neuro oriented x3, CN's II-XII intact bilaterally, moves all extremities, no focal motor deficits and no sensory deficits noted Sensorium / Orientation: awake and alert Psych mental status grossly normal and thought process normal Skin no rashes or lesions noted and no wounds <Dr. Starla Garcia DO - Last Filed: 03/05/24 14:38> Physical Exam Const Vital Signs: 03/05/24 12:31 03/05/24 12:39 03/05/24 14:18 Temperature 97.6 F L 97.8 F Temperature Source Oral Pulse Rate 103 H 62 Respiratory Rate 16 14 Respiratory Effort Normal Non-Labored Respiratory Pattern Normal Blood Pressure 136/92 H 105/62 Blood Pressure Mean 106 76 Pulse Ox 97 96 Oxygen Delivery Method Room Air 03/05/24 14:30 Temperature Temperature Source Pulse Rate 92 Respiratory Rate 14 Respiratory Effort Respiratory Pattern Blood Pressure 145/71 H Blood Pressure Mean 95 Pulse Ox 98 Oxygen Delivery Method Room Air [facility] <TRENA Elizondo - Last Filed: 03/05/24 16:08> [facility] Narrative Medical decision making narrative: Patient presenting due to hyperglycemia. Her blood sugar was 446 at home, she has had some nausea and vomiting over the past few days but has not had any vomiting today. She is dry and clinically dehydrated. She will be given IV fluids and labs will be obtained to rule out DKA. Her sodium is 127, chloride 92, BUN 61, creatinine 1.26, glucose 490. Anion gap is WNL. Patient given insulin. Given her IGOR and hyperglycemia I do think she would benefit from admission to the hospital. She does have a elevated WBC at 26.5. Blood cultures were obtained. She does not have any belly pain or tenderness to her abdomen to indicate need for abdominal imaging. UA does not show evidence of UTI. She did have a few episodes of loose stools but this has resolved. She does not have respiratory symptoms. There is no clear cause of her leukocytosis. Patient will be admitted in stable condition. I have personally performed a face to face assessment of the patient and have reviewed the EDEN Note. I performed a substantive portion of the visit including all aspects of the following. My linder findings include: History is [patient presents to the ER with complaint of elevated blood sugars today. Blood sugar over 400. Patient is a type II diabetic on Ozempic. 2 weeks ago she had her dose increased to 2 mg weekly from 1 mg. Blood sugars continue to be in the 200s. She developed an illness few days ago where she had vomiting for 2 days. Vomiting stopped yesterday. She denies abdominal pain. She denies urinary symptoms. She has had no fevers.] Exam is [HEENT-PERRLA, EOMI. Cranial nerves II through XII grossly intact. TMs clear. Mucous membranes dry. No adenopathy. Cardiovascular-regular rate and rhythm without murmur or ectopy Lungs-clear to auscultation, chest wall stable without crepitus or subcu emphysema Abdomen-normoactive bowel sounds, soft, nontender, no rebound or rigidity, no peritoneal signs. Extremities-intact ?4, normal range of motion, normal pulses, atraumatic] Medical Decison Making [patient presents with episodes of vomiting and diarrhea. Seems to have improved. She was concerned because of elevated blood sugars today. Generally feels weak. IV established. CBC with differential low sodium 127 potassium 3.8 and chloride 92. BUN was 61 and creatinine 1.26. Glucose was 490. Urinalysis dip showed ketones as well as glucose. Patient CBC did return with an elevated WBC count of 26,000. Etiology uncertain. Her abdomen is benign. She not had any more diarrhea. She has had no cough or respiratory issues. She was ordered a liter mostly fluid bolus followed by second liter. Patient was given insulin 20 units subcu. Case will be discussed with hospitalist to evaluate patient for admission for dehydration with IGOR and hyperglycemia.] Other additions or changes: [None] Lab Data Attestation: I reviewed the patient's lab results. Labs: Laboratory Results - last 24 hr 03/05/24 03/05/24 03/05/24 12:35 12:37 13:10 WBC 26.5 H RBC 5.30 Hgb 16.6 H Hct 47.1 H MCV 88.9 MCH 31.3 MCHC 35.2 RDW Std Deviation 41.1 RDW Coeff of [place] 12.5 Plt Count 389 MPV 10.2 Neut % (Auto) Not Reportable Absolute Neuts (auto) 21.9 H Absolute Lymphs (auto) 3.17 Total Counted 100 Neutrophils % (Manual) 81 H Band Neutrophils % 2 Lymphocytes % (Manual) 12 L Monocytes % (Manual) 5 Platelet Estimate ADEQUATE RBC Morphology NORM C+C Sodium 127 L Potassium 3.8 Chloride 92 L Carbon Dioxide 22.0 Anion Gap 13 BUN 61 H Creatinine 1.26 H Estim Creat Clear Calc 37.63 Est GFR (MDRD) Af Amer 54 L Est GFR (MDRD) Non-Af 45 L BUN/Creatinine Ratio 48.4 H Glucose 490 H* Calcium 9.6 Urine Color Urine Clarity Urine pH Ur Specific [place] Urine Protein Urine Glucose (UA) Urine Ketones Urine Occult Blood Urine Nitrite Urine Bilirubin Urine Urobilinogen Ur Leukocyte Esterase Urine RBC Urine WBC Ur Squamous Epith Cells Urine Bacteria Urine Mucus Acetone Level NEGATIVE POC Glucose 483 H* 03/05/24 14:05 WBC RBC Hgb Hct MCV MCH MCHC RDW Std Deviation RDW Coeff of [place] Plt Count MPV Neut % (Auto) Absolute Neuts (auto) Absolute Lymphs (auto) Total Counted Neutrophils % (Manual) Band Neutrophils % Lymphocytes % (Manual) Monocytes % (Manual) Platelet Estimate RBC Morphology Sodium Potassium Chloride Carbon Dioxide Anion Gap BUN Creatinine Estim Creat Clear Calc Est GFR (MDRD) Af Amer Est GFR (MDRD) Non-Af BUN/Creatinine Ratio Glucose Calcium Urine Color Yellow Urine Clarity Clear Urine pH 6.0 Ur Specific [place] 1.015 Urine Protein 100 H Urine Glucose (UA) 1000 H Urine Ketones 15 H Urine Occult Blood 50 H Urine Nitrite Negative Urine Bilirubin Negative Urine Urobilinogen Normal Ur Leukocyte Esterase Negative Urine RBC 0 SEEN Urine WBC 0 SEEN Ur Squamous Epith Cells 0-5 SEEN Urine Bacteria 0 SEEN Urine Mucus 0 SEEN Acetone Level POC Glucose <Dr. Starla Garcia, DO - Last Filed: 03/05/24 14:38> [facility] MDM Narrative Medical decision making narrative: Patient presenting due to hyperglycemia. Her blood sugar was 446 at home, she has had some nausea and vomiting over the past few days but has not had any vomiting today. She is dry and clinically dehydrated. She will be given IV fluids and labs will be obtained to rule out DKA. Her sodium is 127, chloride 92, BUN 61, creatinine 1.26, glucose 490. Anion gap is WNL. Patient given insulin. Given her IGOR and hyperglycemia I do think she would benefit from admission to the hospital. She does have a elevated WBC at 26.5. Blood cultures were obtained. She does not have any belly pain or tenderness to her abdomen to indicate need for abdominal imaging. UA does not show evidence of UTI. She did have a few episodes of loose stools but this has resolved. I have personally performed a face to face assessment of the patient and have reviewed the EDEN Note. I performed a substantive portion of the visit including all aspects of the following. My linder findings include: History is [patient presents to the ER with complaint of elevated blood sugars today. Blood sugar over 400. Patient is a type II diabetic on Ozempic. 2 weeks ago she had her dose increased to 2 mg weekly from 1 mg. Blood sugars continue to be in the 200s. She developed an illness few days ago where she had vomiting for 2 days. Vomiting stopped yesterday. She denies abdominal pain. She denies urinary symptoms. She has had no fevers.] Exam is [HEENT-PERRLA, EOMI. Cranial nerves II through XII grossly intact. TMs clear. Mucous membranes dry. No adenopathy. Cardiovascular-regular rate and rhythm without murmur or ectopy Lungs-clear to auscultation, chest wall stable without crepitus or subcu emphysema Abdomen-normoactive bowel sounds, soft, nontender, no rebound or rigidity, no peritoneal signs. Extremities-intact ?4, normal range of motion, normal pulses, atraumatic] Medical Decison Making [patient presents with episodes of vomiting and diarrhea. Seems to have improved. She was concerned because of elevated blood sugars today. Generally feels weak. IV established. CBC with differential low sodium 127 potassium 3.8 and chloride 92. BUN was 61 and creatinine 1.26. Glucose was 490. Urinalysis dip showed ketones as well as glucose. Patient CBC did return with an elevated WBC count of 26,000. Etiology uncertain. Her abdomen is benign. She not had any more diarrhea. She has had no cough or respiratory issues. She was ordered a liter mostly fluid bolus followed by second liter. Patient was given insulin 20 units subcu. Case will be discussed with hospitalist to evaluate patient for admission for dehydration with IGOR and hyperglycemia.] Other additions or changes: [None] Lab Data Labs: Laboratory Results - last 24 hr 03/05/24 03/05/24 03/05/24 12:35 12:37 13:10 WBC 26.5 H RBC 5.30 Hgb 16.6 H Hct 47.1 H MCV 88.9 MCH 31.3 MCHC 35.2 RDW Std Deviation 41.1 RDW Coeff of [place] 12.5 Plt Count 389 MPV 10.2 Neut % (Auto) Not Reportable Absolute Neuts (auto) 21.9 H Absolute Lymphs (auto) 3.17 Total Counted 100 Neutrophils % (Manual) 81 H Band Neutrophils % 2 Lymphocytes % (Manual) 12 L Monocytes % (Manual) 5 Platelet Estimate ADEQUATE RBC Morphology NORM C+C Sodium 127 L Potassium 3.8 Chloride 92 L Carbon Dioxide 22.0 Anion Gap 13 BUN 61 H Creatinine 1.26 H Estim Creat Clear Calc 37.63 Est GFR (MDRD) Af Amer 54 L Est GFR (MDRD) Non-Af 45 L BUN/Creatinine Ratio 48.4 H Glucose 490 H* Calcium 9.6 Urine Color Urine Clarity Urine pH Ur Specific [place] Urine Protein Urine Glucose (UA) Urine Ketones Urine Occult Blood Urine Nitrite Urine Bilirubin Urine Urobilinogen Ur Leukocyte Esterase Urine RBC Urine WBC Ur Squamous Epith Cells Urine Bacteria Urine Mucus Acetone Level NEGATIVE POC Glucose 483 H* 03/05/24 14:05 WBC RBC Hgb Hct MCV MCH MCHC RDW Std Deviation RDW Coeff of [place] Plt Count MPV Neut % (Auto) Absolute Neuts (auto) Absolute Lymphs (auto) Total Counted Neutrophils % (Manual) Band Neutrophils % Lymphocytes % (Manual) Monocytes % (Manual) Platelet Estimate RBC Morphology Sodium Potassium Chloride Carbon Dioxide Anion Gap BUN Creatinine Estim Creat Clear Calc Est GFR (MDRD) Af Amer Est GFR (MDRD) Non-Af BUN/Creatinine Ratio Glucose Calcium Urine Color Yellow Urine Clarity Clear Urine pH 6.0 Ur Specific [place] 1.015 Urine Protein 100 H Urine Glucose (UA) 1000 H Urine Ketones 15 H Urine Occult Blood 50 H Urine Nitrite Negative Urine Bilirubin Negative Urine Urobilinogen Normal Ur Leukocyte Esterase Negative Urine RBC 0 SEEN Urine WBC 0 SEEN Ur Squamous Epith Cells 0-5 SEEN Urine Bacteria 0 SEEN Urine Mucus 0 SEEN Acetone Level POC Glucose Discharge Plan Dx/Rx/DC Orders Clinical Impression: Dehydration, Hyperglycemia, Leukocytosis, Gastroenteritis Disposition Disposition: Acute Care Hospital [facility] Discharge Date/Time: 03/05/24 15:30
[2024-03-05 13:01] LABS: Bedside Glucose 483 mg/dL (74-106)
[2024-03-05] MEDS: 0.9% Normal Saline (1000mL) 1,000 ML 999 ML IV ×2 (13:09→14:10)
[2024-03-05 13:43] LABS: Anion Gap 13 (5-15); BUN 61 mg/dL (7-18); BUN/Creat Ratio 48.4 RATIO (10-20); Calcium,Total 9.6 mg/dL (8.5-10.1); Chloride 92 mmol/L (98-107); Creatinine, Serum 1.26 mg/dL (0.55-1.02); EST Glomerular Filtration Rate 45 mL/min (>60); Est Glom Filt Rate - Afr Amer 54 mL/min (>60); Estimated Creatinine Clearance 37.63 ml/min; Glucose 490 mg/dL (74-106); Potassium 3.8 mmol/L (3.5-5.1); Sodium Level 127 mmol/L (136-145)
[2024-03-05 13:53] LABS: Hematocrit 47.1 % (37-47); Hemoglobin 16.6 g/dL (12.0-15.0); Mean Corp Hgb Conc 35.2 g/dL (32-36); Mean Corpuscular Hgb 31.3 pg (27.0-32.0); Mean Corpuscular Volume 88.9 fL (81-99); Mean Platelet Vol. 10.2 fl (6.2-12.0); POSITIVE DIFFERENTIAL YES; POSITIVE MORPHOLOGY YES; Platelet Count 389 K/mm3 (150-450); RBC Distribution Width CV 12.5 % (11.6-14.6); RBC Distribution Width SD 41.1 fl (35.1-43.9); White Blood Count 26.5 K/mm3 (4.4-11.0)
[2024-03-05] MEDS: Insulin Lispro 100 UNIT/ML INSULN.PEN 20 UNIT SC (14:10)
[2024-03-05 14:11] LABS: Bacteria 0 SEEN /hpf (None Seen); Color, Urine Yellow (Yellow); Glucose, Dipstick 1000 mg/dl (Normal); Ketone-Dipstick 15 mg/dl (Negative); Leukocyte Esterase-Dipstick Negative /ul (Negative); Mucous, Urine 0 SEEN /hpf (<or=2+); Nitrite-Dipstick Negative (Negative); Occult Blood-Urine 50 /ul (Negative); Protein-Dipstick 100 mg/dl (Negative); Red Blood Cells-Urine 0 SEEN /hpf (0-5); Specific Gravity, Urine 1.015 (1.002-1.030); Urine Bilirubin Dipstick Negative (Negative); Urine Clarity Clear (Clear); Urine Urobilinogen Normal (Normal); White Blood Cells 0 SEEN /hpf (0-5)
--- NOTE | 2024-03-05 14:16 | PCM.HP.STD ---
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 Since the last 2 days she has been having acute nausea, vomiting, vomitus containing mostly food, and diarrhea. Since this morning her improved. Her random blood sugars were elevated to 400s, she is worried about the reason for the same and hence presented to the ED. At the time of evaluation in the ED,blood pressure 136/92 pulse 103, temperature 97.6, sodium 127, chloride 92, glucose 490, WBC 26.5, hemoglobin 16.6, sodium 127, BUN 61, creatinine 1.2. She was given 20 units of insulin lispro, 1 dose of ondansetron 4 mg, 1 L of normal saline. [facility] Medical History Former tobacco use Head injury Near syncope Elevated troponin Abnormal EKG Hyponatremia Prolonged QT interval 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 Irritable bowel syndrome Ulcerative colitis Hypothyroidism Hypertension Vitamin D deficiency Diabetes mellitus Lumbar spinal stenosis Lumbar disc herniation with radiculopathy Home Medications ?Medication ?Instructions ?Recorded ?Last Taken ?Type ergocalciferol (vitamin D2) 1,250 50,000 unit PO MOFR SUPPLEMENT 12/18/20 03/04/24 History mcg (50,000 unit) capsule thyroid (pork) 120 mg tablet 120 tablet PO DAILY THYROID 12/18/20 03/04/24 History atorvastatin 80 mg tablet 80 mg PO QHS cholesterol #30 tabs 11/04/22 03/04/24 Rx clopidogrel 75 mg tablet 75 mg PO DAILY BLOOD THINNER #30 11/04/22 03/04/24 Rx tabs elderberry fruit 200 mg capsule 1,000 mg PO DAILY SUPPLEMENT 07/01/23 03/05/24 History carvedilol 6.25 mg tablet 6.25 mg PO BID 03/05/24 03/05/24 History semaglutide 1 mg/dose (4 mg/3 mL) 1 mg subcut QWEEK 03/05/24 02/29/24 History subcutaneous pen injector (Ozempic) spironolactone 25 mg tablet 25 mg PO DAILY 03/05/24 03/04/24 History Allergy/AdvReac Type Severity Reaction Status Date / Time prednisone Allergy Intermediate Itching Verified 03/05/24 12:31 aspirin Allergy mouth Verified 03/05/24 12:31 swelling gluten Allergy Abd Verified 03/05/24 12:31 cramps/diarrhea ibuprofen Allergy mouth Verified 03/05/24 12:31 swelling Sulfa (Sulfonamide Allergy pt can't Verified 03/05/24 12:31 Antibiotics) remember Family History Mother Heart disease Father Heart disease Hypertension CAD (coronary artery disease) Myocardial infarction Thyroid disorder Diabetes Surgical History Hx of umbilical hernia repair S/P tubal ligation S/P cholecystectomy S/P tonsillectomy and adenoidectomy History of lumbar fusion History of lumbar discectomy Social History household members: none Smoking Status: Former smoker alcohol intake: never substance use type: marijuana and other details: Medical cannabis, usually daily. ROS Review of Systems ROS Unobtainable: Denies due to encephalopathy, due to endotracheal tube, due to mental condition, due to mental status or other Constitutional Constitutional: Reports change in weight and fatigue Eyes Eyes: Denies blurry vision, change in eye color, change in vision, discharge from eye(s), double vision, erythema, eye pain, loss of vision or other ENT HEENT: Denies abnormal hearing, dysphagia, ear pain, epistaxis, headache(s), hearing loss, nasal congestion, nasal discharge, post nasal drip, sinus pressure, sore throat or other Cardiovascular Cardiovascular: Reports palpitations; Denies chest pain, claudication, dyspnea on exertion, edema, lightheadedness, orthopnea, paroxysmal nocturnal dyspnea, rapid heart rate, syncope or other Respiratory/Chest Respiratory/Chest: Denies cough, dyspnea, excessive phlegm production, hemoptysis, productive cough, shortness of breath at rest, shortness of breath with exertion, wheezing or other Gastrointestinal Gastrointestinal: Reports diarrhea, nausea and vomiting; Denies abdominal pain, coffee ground emesis, constipation, dyspepsia, hematemesis, hematochezia, loose stools, melena or other Genitourinary Genitourinary: Denies burning urination, difficulty urinating, dysuria, hematuria, nocturia, urinary frequency, urinary hesitancy, urinary incontinence, urinary urgency or other Musculoskeletal Musculoskeletal: Denies arthralgias, back pain, joint pain, joint stiffness, joint swelling, myalgias, neck pain or other Neurologic Neurologic: Denies abnormal gait, abnormal speech, confusion, disequilibrium, dizziness, focal weakness, headache(s), numbness, paresthesias, seizure-like activity, seizures, syncope, tingling, tremor(s) or other Psychiatric Psychiatric: Denies anxiety, depression, homicidal ideation, suicidal ideation or other Endocrine Endocrinology: Denies change in body appearance, cold intolerance, excessive sweating, heat intolerance, polydipsia, polyuria or other Vital Signs Vital Signs Vital Signs: 03/05/24 12:31 03/05/24 12:39 Temperature 97.6 F L Temperature Source Oral Pulse Rate 103 H Respiratory Rate 16 Respiratory Effort Normal Non-Labored Respiratory Pattern Normal Blood Pressure 136/92 H Blood Pressure Mean 106 Pulse Ox 97 Oxygen Delivery Method Room Air Weight Weight: 156 lb 15.506 oz Body Mass Index (BMI) 30.7 Physical Exam Const alert and oriented x3 HEENT normocephalic Eyes PERRL Neck no lymphadenopathy Resp normal respiratory effort Cardio regular rate and regular rhythm GI normal to inspection, nondistended, normoactive bowel sounds Extremity normal to inspection Neuro oriented x3 Psych affect normal Results Medical Records Data Attestation: I reviewed the patient's medical records Lab / Micro Data Attestation: I reviewed the patient's lab results. 03/05/24 12:35 03/05/24 13:10 Labs: Laboratory Results - last 24 hr 03/05/24 12:35: Acetone Level NEGATIVE 03/05/24 12:37: POC Glucose 483 H* 03/05/24 13:10: Sodium 127 L, Potassium 3.8, Chloride 92 L, Carbon Dioxide 22.0, Anion Gap 13, BUN 61 H, Creatinine 1.26 H, Estim Creat Clear Calc 37.63, Est GFR (MDRD) Af Amer 54 L, Est GFR (MDRD) Non-Af 45 L, BUN/Creatinine Ratio 48.4 H, Glucose 490 H*, Calcium 9.6 03/05/24 14:05: Urine Color Yellow, Urine Clarity Clear, Urine pH 6.0, Ur Specific [place] 1.015, Urine Protein 100 H, Urine Glucose (UA) 1000 H, Urine Ketones 15 H, Urine Occult Blood 50 H, Urine Nitrite Negative, Urine Bilirubin Negative, Urine Urobilinogen Normal, Ur Leukocyte Esterase Negative Assessment & Plan Assessment/Plan (1) Hyperglycemia: PLAN: Plan 68-year-old female with a history of prior stroke on Plavix, type 2 diabetes managed with Ozempic, presents to the ED with concerns regarding hyperglycemia, no features of acidosis or ketosis, with history of renal nausea vomiting and abdominal pain. Given her clinical presentation, improvement in symptoms, white count, elevated BUN/creatinine levels, the features are consistent with acute infection likely viral gastroenteritis resulting in acute hyperglycemia. Her features of gastroenteritis are self resolving, blood cultures were sent from the ED, we will continue to monitor her symptoms and manage it conservatively. She is being admitted for further management of her hyperglycemia #Type 2 diabetes: -Send HbA1c levels -Nutrition consult -Insulin sliding scale -Continue Ozempic as an outpatient -Likely reason for worsening sugars is infection, suspected will improve after the acute episode of gastroenteritis symptoms improve #Prerenal IGOR: In the setting of ongoing diarrhea for last 2 days -Received IV normal saline 1 L in the ED -Monitor repeat creatinine tomorrow -Encourage p.o. intake and fluid intake #Acute gastroenteritis: This is likely reason for the leukocytosis, symptoms are self resolving -Continue to monitor -No indication for antibiotics at this time #Dyslipidemia: Atorvastatin 80 mg at bedtime #Palpitations: Continue carvedilol as outpatient #Prior stroke, left internal carotid artery occlusion: Continue Plavix #Hyponatremia: Suspect pseudohyponatremia given hyperglycemia, continue to monitor for now #Celiac disease: Nutrition consult, gluten-free diet #Hypothyroidism: -Serum TSH levels #DVT prophylaxis: Already on Plavix -SCD -Encourage mobilization -suspect short inpatient stay Charges/Coding Visit Charges Inpatient E&M: 30304 Init Hosp L2
[2024-03-05 14:18] VITALS: BP 105/62; PULSE 62; RESP 14; TEMP 36.6; O2SAT 96
[2024-03-05 14:18] LABS: Squamous Epithelial Cells - UA 0-5 SEEN /hpf (5-10)
[2024-03-05 14:22] LABS: Differential Indicated MANUAL DIFF
[2024-03-05 14:23] LABS: Lymphocyte 12 % (19-41); Monocyte 5 % (0-10); Neutrophil-Band 2 % (0-5); Neutrophil-Segmented 81 % (47-70); Platelet Estimate ADEQUATE (ADEQ); Total Cells Counted 100 (MANUAL DIFF)
[2024-03-05 14:24] LABS: Absolute Neutrophil Count 21.9 X10^3/uL (2.0-7.7); Red Cell Morphology NORM C+C NORMAL (NORM C&C)
[2024-03-05 14:25] LABS: Absolute Lymphocyte Count 3.17 X10^3/uL (0.83-4.51)
[2024-03-05 14:30] VITALS: BP 145/71; PULSE 92; RESP 14; O2SAT 98
--- NOTE | 2024-03-05 14:46 | NURSING ---
MED SURG DURANT IGOR, HYPERGLYCEMIA
[2024-03-05 15:08] LABS: Bedside Glucose 315 mg/dL (74-106)
[2024-03-05 15:15] VITALS: BMI 31.2
[2024-03-05 15:35] VITALS: BP 129/77; PULSE 63; RESP 16; TEMP 37.1; O2SAT 97
[2024-03-05] MEDS: Insulin Lispro 100 UNIT/ML INSULN.PEN SC ×2 (16:40→20:57)
[2024-03-05 17:05] LABS: Bedside Glucose 302 mg/dL (74-106)
[2024-03-05 17:30] VITALS: BP 143/95; PULSE 100; RESP 16; TEMP 36.9; O2SAT 96
[2024-03-05] MEDS: Carvedilol 6.25 MG Tablet PO (17:38)
[2024-03-05] MEDS: Atorvastatin Calcium 80 MG Tablet PO (21:03)
[2024-03-05 21:18] VITALS: BP 106/67; PULSE 84; RESP 16; TEMP 37.1; O2SAT 98
[2024-03-05 21:30] LABS: Bedside Glucose 212 mg/dL (74-106)
[2024-03-06] MEDS: Insulin Lispro 100 UNIT/ML INSULN.PEN SC ×5 (02:56→21:40)
[2024-03-06 03:18] VITALS: BP 151/99; PULSE 99; RESP 16; TEMP 36.7; O2SAT 98
[2024-03-06 03:19] LABS: Bedside Glucose 300 mg/dL (74-106)
[2024-03-06 05:19] LABS: Absolute Lymphocyte Count 1.97 X10^3/uL (0.83-4.51); Absolute Neutrophil Count 13.9 X10^3/uL (2.0-7.7); Basophil# 0.03 X10^3/uL; Basophil% 0.2 % (0-1); Hematocrit 39.1 % (37-47); Hemoglobin 13.6 g/dL (12.0-15.0); Lymphocyte # 1.97 X10^3/ul (0.83-4.51); Lymphocyte % 11.5 % (19-41); Mean Corp Hgb Conc 34.8 g/dL (32-36); Mean Corpuscular Hgb 30.9 pg (27.0-32.0); Mean Corpuscular Volume 88.9 fL (81-99); Mean Platelet Vol. 9.8 fl (6.2-12.0); Monocyte# 1.22 X10^3/uL; Monocyte% 7.1 % (0-10); NRBC Flagged by Analyzer 0 % (0-5); Neutrophil # 13.89 X10^3/uL (2.7-7.7); Neutrophil % 80.7 % (47-70); Platelet Count 318 K/mm3 (150-450); RBC Distribution Width CV 12.6 % (11.6-14.6); RBC Distribution Width SD 41.1 fl (35.1-43.9); White Blood Count 17.2 K/mm3 (4.4-11.0)
[2024-03-06 05:29] LABS: International Normalized Ratio 1.1
[2024-03-06 05:54] LABS: AST(SGOT) 24 U/L (15-37); Alanine Aminotransfer ALT/SGPT 24 U/L (13-56); Albumin, Serum 3.1 g/dL (3.2-5.0); Alkaline Phosphatase 91 U/L (45-117); Anion Gap 5 (5-15); BUN 35 mg/dL (7-18); BUN/Creat Ratio 57.6 RATIO (10-20); Bilirubin, Direct 0.27 mg/dL (0.00-0.30); Calcium,Total 8.8 mg/dL (8.5-10.1); Chloride 97 mmol/L (98-107); Creatinine, Serum 0.61 mg/dL (0.55-1.02); EST Glomerular Filtration Rate 104 mL/min (>60); Est Glom Filt Rate - Afr Amer 126 mL/min (>60); Estimated Creatinine Clearance 59.85 ml/min; Globulin 3.1 g/dL (2.2-4.2); Glucose 308 mg/dL (74-106); Magnesium 2.2 mg/dL (1.6-2.6); Phosphorus 1.8 mg/dL (2.5-4.9); Potassium 3.3 mmol/L (3.5-5.1); Protein, Total 6.2 g/dL (6.4-8.2); Sodium Level 131 mmol/L (136-145); Thyroid Stim Hormone (TSH) 0.27 uIU/mL (0.358-3.74)
[2024-03-06] MEDS: 0.9% Saline Lock 10 ML Syringe IV ×2 (06:56→10:54)
[2024-03-06] MEDS: Ondansetron 4 MG/2 ML Vial IV ×2 (06:56→21:30)
[2024-03-06 07:10] LABS: Bedside Glucose 274 mg/dL (74-106)
--- NOTE | 2024-03-06 07:30 | PN.HOSP_ITS ---
Reason for Visit Reason for Visit: Diagnoses Hyperglycemia, unspecified (03/05/24) Subjective Subjective Trying to eat but still nauseated feels like she is about ready for a while. Had Zofran but did not help. Objective Data Objective Data Vital Signs: Vital Signs Temp Pulse Resp BP Pulse Ox O2 Del Method 36.7 C 99 16 151/99 H 98 Room Air 03/06/24 03:18 03/06/24 03:18 03/06/24 03:18 03/06/24 03:18 03/06/24 03:18 03/06/24 03:18 Oxygen Delivery Method Room Air Weight: 72.575 kg Body Mass Index (BMI) 31.2 Intake & Output: Intake and Output for Last 24 Hours 03/04/24 03/05/24 03/06/24 23:59 23:59 23:59 Intake Total 1999 Balance 1999 Lab / Micro Data 03/06/24 04:46 03/06/24 04:46 Labs: Laboratory Results - last 24 hr 03/05/24 12:35: WBC 26.5 H, RBC 5.30, Hgb 16.6 H, Hct 47.1 H, MCV 88.9, MCH 31.3, MCHC 35.2, RDW Std Deviation 41.1, RDW Coeff of [place] 12.5, Plt Count 389, MPV 10.2, Neut % (Auto) Not Reportable, Absolute Neuts (auto) 21.9 H, Absolute Lymphs (auto) 3.17, Total Counted 100, Neutrophils % (Manual) 81 H, Band Neutrophils % 2, Lymphocytes % (Manual) 12 L, Monocytes % (Manual) 5, Platelet Estimate ADEQUATE, RBC Morphology NORM C+C, Acetone Level NEGATIVE 03/05/24 12:37: POC Glucose 483 H* 03/05/24 13:10: Sodium 127 L, Potassium 3.8, Chloride 92 L, Carbon Dioxide 22.0, Anion Gap 13, BUN 61 H, Creatinine 1.26 H, Estim Creat Clear Calc 37.63, Est GFR (MDRD) Af Amer 54 L, Est GFR (MDRD) Non-Af 45 L, BUN/Creatinine Ratio 48.4 H, G lucose 490 H*, Calcium 9.6 03/05/24 14:05: Urine Color Yellow, Urine Clarity Clear, Urine pH 6.0, Ur Specific [place] 1.015, Urine Protein 100 H, Urine Glucose (UA) 1000 H, Urine Ketones 15 H, Urine Occult Blood 50 H, Urine Nitrite Negative, Urine Bilirubin Negative, Urine Urobilinogen Normal, Ur Leukocyte Esterase Negative, Urine RBC 0 SEEN, Urine WBC 0 SEEN, Ur Squamous Epith Cells 0-5 SEEN, Urine Bacteria 0 SEEN, Urine Mucus 0 SEEN 03/05/24 14:49: POC Glucose 315 H 03/05/24 16:36: POC Glucose 302 H 03/05/24 20:56: POC Glucose 212 H 03/06/24 02:55: POC Glucose 300 H 03/06/24 04:46: WBC 17.2 H, RBC 4.40, Hgb 13.6, Hct 39.1, MCV 88.9, MCH 30.9, MCHC 34.8, RDW Std Deviation 41.1, RDW Coeff of [place] 12.6, Plt Count 318, MPV 9.8, Immature Gran % (Auto) 0.500, Neut % (Auto) 80.7 H, Lymph % (Auto) 11.5 L, [place] % (Auto) 7.1, Eos % (Auto) 0.0, Baso % (Auto) 0.2, Absolute Neuts (auto) 13.9 H, Absolute Lymphs (auto) 1.97, Nucleated RBC % 0, PT 14.0, INR 1.1, Sodium 131 L, Potassium 3.3 L, Chloride 97 L, Carbon Dioxide 29.0, Anion Gap 5, BUN 35 H, Creatinine 0.61, Estim Creat Clear Calc 59.85, Est GFR (MDRD) Af Amer 126, Est GFR (MDRD) Non-Af 104, BUN/Creatinine Ratio 57.6 H, Glucose 308 H, Calcium 8.8, Phosphorus 1.8 L, Magnesium 2.2, Total Bilirubin 1.00, Direct Bilirubin 0.27, AST 24, ALT 24, Alkaline Phosphatase 91, Total Protein 6.2 L, Albumin 3.1 L, Globulin 3.1, Albumin/Globulin Ratio 1.0, TSH 0.27 L 03/06/24 06:48: POC Glucose 274 H Physical Exam Const alert and no apparent distress Constitutional Narrative: Uncomfortable. Afebrile. Resp normal respiratory effort and no retractions Cardio regular rate, regular rhythm, S1 normal heart sound and S2 normal heart sound GI normal to inspection, nondistended, normoactive bowel sounds, soft to palpation, non-tender and non-distended Extremity normal to inspection and full ROM Neuro oriented x3 and CN's II-XII intact bilaterally Sensorium / Orientation: awake and alert Assessment & Plan Assessment/Plan (1) Hyperglycemia: PLAN: Plan Hyperglycemia * suspect inadequately controlled diabetes despite semaglutide. May be exacerbated by gastroenteritis. * A1c 6.8. * SSI Hypokalemia/Hypophosphatemia * replace Hyponatremia * improving * suspect due to pseudohyponatremia IGOR * POA, now resolved * admission creatinine 1.26, now down to 0.61 * likely prerenal Suspected gastroenteritis * Supportive management * Clear liquid diet as patient did not tolerate regular diet. * As needed antiemetics. Adding Compazine as Zofran is not effective today. Chronic conditions: * HLP: continue Atorvastatin * prior CVA: continue statin and clopidogrel * rtery occlusion: Continue Plavix * Celiac disease: Nutrition consult, gluten-free diet * Hypothyroidism: TSH low. on pork thyroid. defer mgmt to provider who manages her medication. VTE prophylaxis: SCDs. Charges/Coding Visit Charges Inpatient E&M: 02265 Subs Hosp L2
[2024-03-06 08:23] LABS: Hemoglobin A1c 6.8 % (3.8-5.6)
[2024-03-06 08:35] VITALS: BP 171/85; PULSE 75; RESP 18; TEMP 36.9; O2SAT 100
[2024-03-06] MEDS: Potassium Phosphate 21 MM in 0.9% Normal Saline (250mL Bag) 250 ML 84 MM IV (08:40)
[2024-03-06] MEDS: Carvedilol 6.25 MG Tablet PO ×2 (08:40→16:54)
[2024-03-06] MEDS: Clopidogrel Bisulfate 75 MG Tablet PO (08:40)
[2024-03-06] MEDS: proCHLORPERazine 10 MG/2 ML Vial 5 MG IV ×2 (10:54→22:14)
[2024-03-06 11:04] VITALS: BP 177/81; PULSE 67; RESP 18; TEMP 36.9; O2SAT 95
[2024-03-06 11:20] LABS: Bedside Glucose 248 mg/dL (74-106)
[2024-03-06] MEDS: 0.9% Normal Saline (1000mL) 1,000 ML 125 ML IV ×2 (11:40→18:46)
[2024-03-06 15:00] VITALS: BP 101/62; PULSE 67; RESP 16; TEMP 36.9; O2SAT 91
[2024-03-06 16:50] VITALS: BP 110/60; PULSE 69; RESP 16; TEMP 36.8; O2SAT 97
[2024-03-06 17:13] LABS: Bedside Glucose 280 mg/dL (74-106)
[2024-03-06 22:00] VITALS: BP 179/69; PULSE 78; RESP 16; TEMP 36.6; O2SAT 95
[2024-03-06 22:15] LABS: Bedside Glucose 211 mg/dL (74-106)
[2024-03-07] MEDS: proCHLORPERazine 10 MG/2 ML Vial 5 MG IV ×2 (02:54→14:09)
[2024-03-07] MEDS: 0.9% Normal Saline (1000mL) 1,000 ML 125 ML IV (02:54)
[2024-03-07] MEDS: Insulin Lispro 100 UNIT/ML INSULN.PEN SC ×5 (02:55→21:18)
[2024-03-07 03:00] VITALS: BP 162/75; PULSE 79; RESP 16; TEMP 36.6; O2SAT 95
[2024-03-07 03:16] LABS: Bedside Glucose 200 mg/dL (74-106)
[2024-03-07 04:55] LABS: Absolute Lymphocyte Count 2.92 X10^3/uL (0.83-4.51); Absolute Neutrophil Count 10.9 X10^3/uL (2.0-7.7); Basophil# 0.05 X10^3/uL; Basophil% 0.3 % (0-1); Eosinophil# 0.03 X10^3/uL; Eosinophils% 0.2 % (0-5); Hematocrit 36.7 % (37-47); Hemoglobin 12.7 g/dL (12.0-15.0); Lymphocyte # 2.92 X10^3/ul (0.83-4.51); Lymphocyte % 19.3 % (19-41); Mean Corp Hgb Conc 34.6 g/dL (32-36); Mean Corpuscular Hgb 30.8 pg (27.0-32.0); Mean Corpuscular Volume 89.1 fL (81-99); Mean Platelet Vol. 9.7 fl (6.2-12.0); Monocyte# 1.16 X10^3/uL; Monocyte% 7.7 % (0-10); NRBC Flagged by Analyzer 0 % (0-5); Neutrophil # 10.86 X10^3/uL (2.7-7.7); Neutrophil % 71.8 % (47-70); Platelet Count 304 K/mm3 (150-450); RBC Distribution Width CV 12.5 % (11.6-14.6); Red Blood Count 4.12 M/mm3 (4.2-5.4); White Blood Count 15.1 K/mm3 (4.4-11.0)
[2024-03-07 05:31] LABS: Anion Gap 7 (5-15); BUN 13 mg/dL (7-18); BUN/Creat Ratio 24.9 RATIO (10-20); Calcium,Total 8.2 mg/dL (8.5-10.1); Chloride 99 mmol/L (98-107); Creatinine, Serum 0.52 mg/dL (0.55-1.02); EST Glomerular Filtration Rate 124 mL/min (>60); Est Glom Filt Rate - Afr Amer 150 mL/min (>60); Estimated Creatinine Clearance 59.85 ml/min; Glucose 224 mg/dL (74-106); Potassium 3.2 mmol/L (3.5-5.1); Sodium Level 133 mmol/L (136-145)
[2024-03-07] MEDS: Carvedilol 6.25 MG Tablet PO ×2 (07:48→16:05)
[2024-03-07] MEDS: Clopidogrel Bisulfate 75 MG Tablet PO (07:48)
[2024-03-07 08:16] VITALS: BP 144/73; PULSE 69; RESP 16; TEMP 36.9; O2SAT 97
--- NOTE | 2024-03-07 08:48 | PN.HOSP_ITS ---
Reason for Visit Reason for Visit: Diagnoses Hyperglycemia, unspecified (03/05/24) Subjective Subjective Feeling better. Improved nausea. Tolerating clears. Objective Data Objective Data Vital Signs: Vital Signs Temp Pulse Resp BP Pulse Ox O2 Del Method 36.9 C 69 16 144/73 H 97 Room Air 03/07/24 08:16 03/07/24 08:16 03/07/24 08:16 03/07/24 08:16 03/07/24 08:16 03/07/24 08:16 Oxygen Delivery Method Room Air Weight: 72.575 kg Body Mass Index (BMI) 31.2 Intake & Output: Intake and Output for Last 24 Hours 03/05/24 03/06/24 03/07/24 23:59 23:59 23:59 Intake Total 1999 1144.5 / 1144.5 1000 / 1000 Balance 1999 1144.5 / 1144.5 1000 / 1000 Lab / Micro Data 03/07/24 04:23 03/07/24 04:23 Labs: Laboratory Results - last 24 hr 03/06/24 10:58: POC Glucose 248 H 03/06/24 16:52: POC Glucose 280 H 03/06/24 21:39: POC Glucose 211 H 03/07/24 02:54: POC Glucose 200 H 03/07/24 04:23: WBC 15.1 H, RBC 4.12 L, Hgb 12.7, Hct 36.7 L, MCV 89.1, MCH 30.8, MCHC 34.6, RDW Std Deviation 41.0, RDW Coeff of [place] 12.5, Plt Count 304, MPV 9.7, Immature Gran % (Auto) 0.700, Neut % (Auto) 71.8 H, Lymph % (Auto) 19.3, [place] % (Auto) 7.7, Eos % (Auto) 0.2, Baso % (Auto) 0.3, Absolute Neuts (auto) 10.9 H, Absolute Lymphs (auto) 2.92, Nucleated RBC % 0, Sodium 133 L, P otassium 3.2 L, Chloride 99, Carbon Dioxide 27.0, Anion Gap 7, BUN 13, C reatinine 0.52 L, Estim Creat Clear Calc 59.85, Est GFR (MDRD) Af Amer 150, Est GFR (MDRD) Non-Af 124, BUN/Creatinine Ratio 24.9 H, Glucose 224 H, Calcium 8.2 L Physical Exam Const alert and no apparent distress HEENT head/scalp atraumatic Resp normal respiratory effort, no retractions, no use of accessory muscles and clear to auscultation bilaterally Cardio regular rate, regular rhythm, S1 normal heart sound and S2 normal heart sound GI normal to inspection, nondistended, normoactive bowel sounds, soft to palpation, non-tender and non-distended Neuro oriented x3 and moves all extremities Sensorium / Orientation: awake and alert Assessment & Plan Assessment/Plan (1) Hyperglycemia: PLAN: Plan Hyperglycemia * Acute, likely exacerbated by gastroenteritis. * A1c 6.8. * SSI Hypokalemia/Hypophosphatemia * replaced and improved Hyponatremia * improving * suspect due to pseudohyponatremia IGOR * POA, now resolved * admission creatinine 1.26, now down to 0.61 * likely prerenal Suspected gastroenteritis * Supportive management * Clear liquid diet as patient did not tolerate regular diet. * As needed antiemetics. Adding Compazine as Zofran is not effective today. * Advance diet today and observe. Chronic conditions: * HLP: continue Atorvastatin * prior CVA: continue statin and clopidogrel * Celiac disease: Nutrition consult, gluten-free diet * Hypothyroidism: TSH low. on pork thyroid. defer mgmt to provider who manages her medication. VTE prophylaxis: SCDs. Charges/Coding Visit Charges Inpatient E&M: 84569 Subs Hosp L2
[2024-03-07] MEDS: Potassium Chloride Oral Tablet 20 MEQ 40 MEQ PO (09:32)
[2024-03-07] MEDS: SEMAGLUTIDE 2 MG/0.75 ML SQ (09:32)
[2024-03-07 09:58] LABS: Bedside Glucose 155 mg/dL (74-106)
[2024-03-07] MEDS: Thyroid 60 MG Tablet 120 MG PO (10:12)
[2024-03-07 11:17] VITALS: BP 121/69; PULSE 70; RESP 16; TEMP 36.4; O2SAT 97
[2024-03-07 11:20] LABS: Bedside Glucose 169 mg/dL (74-106)
--- NOTE | 2024-03-07 13:38 | CASEMGMT ---
OLVIN CHONG Assessment: Face to Face with pt for initial transition planning/care coordination assessment. RN CASTILLO introduced self and role at [facility], pt voices understanding and consents to assessment. Pt up walking in room upon entering, pt sat up in bed for assessment. Pt is A&O x4 and answers all questions appropriately at this time. Care providers, pharmacy, and demographics verified/updated. Admitting Dx: Hyperglycemia PCP: Charan Specialists: - rack pusher, Lathmaker - does not recall name. Preferred Pharmacy: [facility] Insurance: [facility], Medicaid Prescription Benefit: yes LNOK: Diamond - sister, Zoey - daughter Living Arrangements: Pt lives alone in a 2 story home with 3 steps to enter, bedroom and batrhoom on main leve. Pt states I with ADLs and IADLs. Transportation: Pt drives self and denies concerns with transportation. DME: [employer] and supplies HHC/SNF: Previously at [facility] following a back surgery, used HHC but does not recall what agency she used. Pt states no concerns with going home at time of dc. Pt states no further concerns/needs. CM to follow. Advised pt to ask CM if any further question/concerns/needs arise, voices understanding. Pt Goal: Home Plan: Home no needs. Paula BAH CM
[2024-03-07] MEDS: 0.9% Saline Lock 10 ML Syringe IV (14:10)
[2024-03-07 14:33] VITALS: BP 164/70; PULSE 71; RESP 16; TEMP 37; O2SAT 98
[2024-03-07 16:25] LABS: Bedside Glucose 247 mg/dL (74-106)
[2024-03-07 21:16] VITALS: BP 107/67; PULSE 65; RESP 16; TEMP 36.9; O2SAT 96
[2024-03-07] MEDS: Atorvastatin Calcium 80 MG Tablet PO (21:18)
[2024-03-07 21:39] LABS: Bedside Glucose 197 mg/dL (74-106)
[2024-03-08 02:27] LABS: Bedside Glucose 189 mg/dL (74-106)
[2024-03-08 03:12] VITALS: BP 95/59; PULSE 61; RESP 16; TEMP 36.6; O2SAT 95
[2024-03-08] MEDS: Insulin Lispro 100 UNIT/ML INSULN.PEN SC ×5 (03:16→21:11)
[2024-03-08 03:29] LABS: Bedside Glucose 157 mg/dL (74-106)
[2024-03-08 06:45] LABS: Bedside Glucose 240 mg/dL (74-106)
[2024-03-08 07:51] VITALS: BP 101/60; PULSE 65; RESP 16; TEMP 36.8; O2SAT 97
--- NOTE | 2024-03-08 07:55 | PN.HOSP_ITS ---
Reason for Visit Reason for Visit: Diagnoses Hyperglycemia, unspecified (03/05/24) Objective Data Objective Data Vital Signs: Vital Signs Temp Pulse Resp BP Pulse Ox O2 Del Method 36.8 C 65 16 101/60 97 Room Air 03/08/24 07:51 03/08/24 07:51 03/08/24 07:51 03/08/24 07:51 03/08/24 07:51 03/08/24 07:51 Oxygen Delivery Method Room Air Weight: 72.575 kg Body Mass Index (BMI) 31.2 Intake & Output: Intake and Output for Last 24 Hours 03/06/24 03/07/24 03/08/24 23:59 23:59 23:59 Intake Total 1144.5 / 1144.5 2197.92 / 2197.92 Balance 1144.5 / 1144.5 2197.92 / 2197.92 Lab / Micro Data 03/07/24 04:23 03/07/24 04:23 Labs: Laboratory Results - last 24 hr 03/07/24 06:51: POC Glucose 189 H 03/07/24 09:39: POC Glucose 155 H 03/07/24 11:01: POC Glucose 169 H 03/07/24 16:03: POC Glucose 247 H 03/07/24 21:15: POC Glucose 197 H 03/08/24 03:06: POC Glucose 157 H 03/08/24 06:25: POC Glucose 240 H Micro: Microbiology 03/05/24 15:00 Blood Culture (Wb) - Anticubital Left Blood Culture - Preliminary No growth in 48 hours. 03/05/24 15:00 Blood Culture (Wb) #2 - Left Hand Blood Culture - Preliminary No growth in 48 hours. Assessment & Plan Assessment/Plan (1) Hyperglycemia: PLAN: Plan Hyperglycemia * Improved * Acute, likely exacerbated by gastroenteritis. * A1c 6.8. * SSI Hypokalemia/Hypophosphatemia * replaced and improved Hyponatremia * improving * suspect due to pseudohyponatremia from hyperglycemia IGOR * POA, now resolved * admission creatinine 1.26, went down to 0.61 * likely prerenal no additional work up at this time. Suspected gastroenteritis * Supportive management * Tolerating diet. Chronic conditions: * HLP: continue Atorvastatin * prior CVA: continue statin and clopidogrel * Celiac disease: Nutrition consult, gluten-free diet * Hypothyroidism: TSH low. on pork thyroid. defer mgmt to provider who manages her medication. VTE prophylaxis: SCDs.
--- NOTE | 2024-03-08 07:55 | PCM.PN.HOSP ---
Reason for Visit Reason for Visit: Diagnoses Hyperglycemia, unspecified (03/05/24) Subjective Subjective Feeling better. Ate some food today. Improved nausea. Objective Data Objective Data Vital Signs: Vital Signs Temp Pulse Resp BP Pulse Ox O2 Del Method 36.8 C 65 16 101/60 97 Room Air 03/08/24 07:51 03/08/24 07:51 03/08/24 07:51 03/08/24 07:51 03/08/24 07:51 03/08/24 07:51 Oxygen Delivery Method Room Air Weight: 72.575 kg Body Mass Index (BMI) 31.2 Intake & Output: Intake and Output for Last 24 Hours 03/06/24 03/07/24 03/08/24 23:59 23:59 23:59 Intake Total 1144.5 / 1144.5 2197.92 / 2197.92 Balance 1144.5 / 1144.5 2197.92 / 2197.92 Lab / Micro Data 03/07/24 04:23 03/07/24 04:23 Labs: Laboratory Results - last 24 hr 03/07/24 06:51: POC Glucose 189 H 03/07/24 09:39: POC Glucose 155 H 03/07/24 11:01: POC Glucose 169 H 03/07/24 16:03: POC Glucose 247 H 03/07/24 21:15: POC Glucose 197 H 03/08/24 03:06: POC Glucose 157 H 03/08/24 06:25: POC Glucose 240 H Micro: Microbiology 03/05/24 15:00 Blood Culture (Wb) - Anticubital Left Blood Culture - Preliminary No growth in 48 hours. 03/05/24 15:00 Blood Culture (Wb) #2 - Left Hand Blood Culture - Preliminary No growth in 48 hours. Physical Exam Const alert and no apparent distress Resp normal respiratory effort and no retractions GI normal to inspection, nondistended, normoactive bowel sounds, soft to palpation, non-tender and non-distended Assessment & Plan Assessment/Plan (1) Hyperglycemia: PLAN: Plan Hyperglycemia Improved Acute, likely exacerbated by gastroenteritis. A1c 6.8. Excess semaglutide. Has been on that for over a year. Recently has had the dose increased but was having nausea for that. She is concerned that may or symptoms may be related with semaglutide. Recommend restarting glimepiride at 2 mg. She was unsure if she wanted to proceed with that. She would like to follow-up with Dr. Johnson of endocrinology. She states that she will need a referral and will need to get up with her primary care provider. Told her to reach out to her PCP to see if she can get a referral. Hypokalemia/Hypophosphatemia replaced and improved Hyponatremia improving suspect due to pseudohyponatremia from hyperglycemia IGOR POA, now resolved admission creatinine 1.26, went down to 0.61 likely prerenal no additional work up at this time. Suspected gastroenteritis Supportive management Tolerating diet. Chronic conditions: HLP: continue Atorvastatin prior CVA: continue statin and clopidogrel Celiac disease: Nutrition consult, gluten-free diet Hypothyroidism: TSH low. on pork thyroid. defer mgmt to provider who manages her medication. VTE prophylaxis: SCDs. Discharge home
[2024-03-08] MEDS: Carvedilol 6.25 MG Tablet PO ×2 (08:03→16:46)
[2024-03-08] MEDS: Clopidogrel Bisulfate 75 MG Tablet PO (08:03)
[2024-03-08] MEDS: Thyroid 60 MG Tablet 120 MG PO (08:03)
--- NOTE | 2024-03-08 10:09 | DS.PCM_ITS ---
Providers Date of Admission: 03/05/24 Primary Care Physician: Dr. Preet Farrar, DO Reason For Visit: HYPERGLYCEMIA Diagnosis Discharge Diagnosis (1) Hyperglycemia: Status: Acute Code(s): R73.9 - Hyperglycemia, unspecified Plan Hyperglycemia * Improved * Acute, likely exacerbated by gastroenteritis. * A1c 6.8. * Excess semaglutide. Has been on that for over a year. Recently has had the dose increased but was having nausea for that. She is concerned that may or symptoms may be related with semaglutide. Recommend restarting glimepiride at 2 mg. She was unsure if she wanted to proceed with that. * She would like to follow-up with Dr. Johnson of endocrinology. She states that she will need a referral and will need to get up with her primary care provider. Told her to reach out to her PCP to see if she can get a referral. Hypokalemia/Hypophosphatemia * replaced and improved Hyponatremia * improving * suspect due to pseudohyponatremia from hyperglycemia IGOR * POA, now resolved * admission creatinine 1.26, went down to 0.61 * likely prerenal no additional work up at this time. Suspected gastroenteritis * Supportive management * Tolerating diet. Chronic conditions: * HLP: continue Atorvastatin * prior CVA: continue statin and clopidogrel * Celiac disease: Nutrition consult, gluten-free diet * Hypothyroidism: TSH low. on pork thyroid. defer mgmt to provider who manages her medication. VTE prophylaxis: SCDs. Discharge home Medications at Discharge Home Medications ergocalciferol (vitamin D2) 1,250 mcg (50,000 unit) capsule 50,000 unit PO MOFR SUPPLEMENT 12/18/20 thyroid (pork) 120 mg tablet 120 tablet PO DAILY THYROID 12/18/20 atorvastatin 80 mg tablet 80 mg PO QHS cholesterol #30 tabs 11/04/22 clopidogrel 75 mg tablet 75 mg PO DAILY BLOOD THINNER #30 tabs 11/04/22 elderberry fruit 200 mg capsule 1,000 mg PO DAILY SUPPLEMENT 07/01/23 carvedilol 6.25 mg tablet 6.25 mg PO BID 03/05/24 semaglutide 1 mg/dose (4 mg/3 mL) subcutaneous pen injector (Ozempic) 1 mg subcut QWEEK 03/05/24 spironolactone 25 mg tablet 25 mg PO DAILY 03/05/24 glimepiride 2 mg tablet 2 mg PO DAILY #30 tabs 03/08/24 ondansetron HCl 8 mg tablet 8 mg PO Q8H PRN nausea and vomiting 5 days #15 tabs 03/08/24 pantoprazole 40 mg tablet,delayed release 40 mg PO DAILY #30 tabs 03/08/24 Hospital Course Operations None Procedures None Summary of Care Provided Minutes Spent on Discharge: 35 Hospital Course: Patient presents with nausea vomiting and diarrhea. Initial workup for the diarrhea was negative. Had to be related with likely a viral gastroenteritis. Patient blood sugar was 490 when she presented. She was not in DKA. She is a type II diabetic on semaglutide. Blood sugars improved. A1c came back at 6.8. Previously, patient had been on glimepiride in addition to her semaglutide. She would like to follow-up with endocrinology but she said she will need a referral through her primary care provider. Weight / BMI Weight Weight: 72.575 kg Body Mass Index (BMI) 31.2 ABG / Lab / Microbiology Data 03/07/24 04:23 03/07/24 04:23 Laboratory: Laboratory Results - last 24 hr 03/07/24 06:51: POC Glucose 189 H 03/07/24 11:01: POC Glucose 169 H 03/07/24 16:03: POC Glucose 247 H 03/07/24 21:15: POC Glucose 197 H 03/08/24 03:06: POC Glucose 157 H 03/08/24 06:25: POC Glucose 240 H Microbiology: Microbiology 03/05/24 15:00 Blood Culture (Wb) - Anticubital Left Blood Culture - Preliminary No growth in 48 hours. 03/05/24 15:00 Blood Culture (Wb) #2 - Left Hand Blood Culture - Preliminary No growth in 48 hours. D/C Instructions Discharge Diet: 2000 Calorie Control Diet and - (Gluten-free) Meaningful Use Info Meaningful Use Meaningful Use Diagnoses (Choose all that apply): None applicable Ischemic Stroke Statin Dosing Therapy Reference: STATIN DOSE THERAPY REFERENCE: * Patients > 75 years receive moderate or high dose statin therapy. * Patients 75 years or YOUNGER should receive HIGH intensity statin dose unless contraindicated. You will be required to document reason for non-treatment if statin daily dose does not meet guidelines. HIGH DOSE STATIN THERAPY DAILY Atorvastatin > than or = to 40 mg Rosuvastatin > than or = to 20 mg Amlodipine + Atorvastatin > than or = to 2.5/40 mg Ezetimibe + Simvastatin 10/80 mg Simvastatin 80mg Discharge Plan Admission Admit Date/Time: 03/05/24 14:47 Primary Reason for Your Visit: Gastroenteritis. Hyperglycemia Attending Provider: Hermes Mirza Primary Care Provider: Preet Farrar Consulting Providers: Adrian Duron Instructions Additional Instructions / Restrictions: He presented with nausea vomiting and diarrhea which may have been a viral gastroenteritis. Your symptoms have gotten better though you are still having some nausea. Will have some antinausea medications upon discharge. With your ongoing discomfort I would also recommend taking the Protonix daily. Contact your primary care provider about seeing Dr. Pelayo of endocrinology. Discharge Orders/Prescriptions Prescriptions: New glimepiride 2 mg tablet 2 mg PO DAILY Qty: 30 0RF ondansetron HCl 8 mg tablet 8 mg PO Q8H PRN (Reason: nausea and vomiting) 5 Days Qty: 15 0RF pantoprazole 40 mg tablet,delayed release (DR/EC) 40 mg PO DAILY Qty: 30 0RF Continued thyroid (pork) 120 MG tablet 120 tablet PO DAILY Rx Instructions: DOES NOT TAKE ON SATURDAYS ergocalciferol (vitamin D2) 50,000 UNIT capsule 50,000 unit PO MOFR atorvastatin 80 mg Tablet 80 mg PO QHS Qty: 30 2RF clopidogrel 75 mg Tablet 75 mg PO DAILY Qty: 30 2RF elderberry fruit 200 mg capsule 1,000 mg PO DAILY carvedilol 6.25 mg tablet 6.25 mg PO BID spironolactone 25 mg tablet 25 mg PO DAILY Ozempic 1 mg/dose (4 mg/3 mL) pen injector 1 mg subcut QWEEK Referrals / Follow Up: Preet Farrar DO [Primary Care Provider] - Within 2 Weeks [facility] [Provider Group] - Within 1 Month Disposition Disposition (needs filled in before D/C Order can be placed): Home, Self Care Charges/Coding Visit Charges Inpatient E&M: 64038 Disch Hosp >30min
[2024-03-08 10:58] LABS: Bedside Glucose 299 mg/dL (74-106)
[2024-03-08] MEDS: 0.9% Saline Lock 10 ML Syringe IV ×2 (11:09→16:42)
[2024-03-08] MEDS: proCHLORPERazine 10 MG/2 ML Vial 5 MG IV (11:09)
[2024-03-08 11:23] VITALS: BP 139/66; PULSE 71; RESP 16; TEMP 37.2; O2SAT 98
[2024-03-08 15:32] VITALS: BP 165/81; PULSE 75; RESP 16; TEMP 37.3; O2SAT 98
--- NOTE | 2024-03-08 16:20 | RAD_ITS ---
EXAM: XR ABDOMEN, 1 VIEW CLINICAL INDICATION: nausea/vomiting TECHNIQUE: Frontal supine view of the abdomen/pelvis. COMPARISON: No relevant prior studies available. FINDINGS: LOWER THORAX: No acute pathology. INTRAPERITONEAL SPACE: Limited assessment for free air presumed supine imaging. GASTROINTESTINAL TRACT: Unremarkable. Non-obstructive. No bowel or stomach distention. Normal bowel gas pattern; vascular calcifications in the pelvis. ORGANS: Unremarkable as visualized. No organomegaly. No abnormal calcifications. BONES/JOINTS: Degenerative changes of the spine. No unusual lytic or sclerotic lesions of bone. L1-2 posterior osteometallic fusion. No hardware complications. SOFT TISSUES: Evidence of prior ventral abdominal wall hernia repair. RAD/Abdomen Single View (Portable) IMPRESSION: Normal gas pattern. No acute disease. Electronically Signed: Romulo Ochoa MD at 5:08 EDT ,
[2024-03-08] MEDS: 0.9% Normal Saline (1000mL) 1,000 ML 100 ML IV (16:42)
[2024-03-08 17:04] LABS: Bedside Glucose 217 mg/dL (74-106)
[2024-03-08] MEDS: Atorvastatin Calcium 80 MG Tablet PO (21:11)
[2024-03-08] MEDS: Pantoprazole Sodium 40 MG in 0.9% Normal Saline (100mL MB+) 100 ML 330 MG IV (21:16)
[2024-03-08 21:17] VITALS: BP 111/60; PULSE 69; RESP 16; TEMP 37.1; O2SAT 99
[2024-03-08 23:04] LABS: Bedside Glucose 163 mg/dL (74-106)
[2024-03-09 03:47] VITALS: BP 119/59; PULSE 66; RESP 18; TEMP 36.4; O2SAT 98
[2024-03-09 04:20] LABS: Bedside Glucose 144 mg/dL (74-106)
[2024-03-09 06:45] LABS: Absolute Lymphocyte Count 3.24 X10^3/uL (0.83-4.51); Absolute Neutrophil Count 7.1 X10^3/uL (2.0-7.7); Basophil# 0.04 X10^3/uL; Basophil% 0.3 % (0-1); Eosinophil# 0.15 X10^3/uL; Eosinophils% 1.3 % (0-5); Hematocrit 34.4 % (37-47); Hemoglobin 11.6 g/dL (12.0-15.0); Lymphocyte # 3.24 X10^3/ul (0.83-4.51); Lymphocyte % 28.3 % (19-41); Mean Corp Hgb Conc 33.7 g/dL (32-36); Mean Corpuscular Hgb 30.5 pg (27.0-32.0); Mean Corpuscular Volume 90.5 fL (81-99); Mean Platelet Vol. 9.4 fl (6.2-12.0); Monocyte# 0.85 X10^3/uL; Monocyte% 7.4 % (0-10); NRBC Flagged by Analyzer 0 % (0-5); Platelet Count 288 K/mm3 (150-450); RBC Distribution Width CV 12.4 % (11.6-14.6); RBC Distribution Width SD 40.5 fl (35.1-43.9); White Blood Count 11.5 K/mm3 (4.4-11.0)
[2024-03-09] MEDS: Insulin Lispro 100 UNIT/ML INSULN.PEN SC ×2 (07:00→11:42)
[2024-03-09 07:07] LABS: Bedside Glucose 250 mg/dL (74-106)
[2024-03-09 07:17] LABS: ALB/GLOB Ratio 1.1 RATIO (0.9-2.4); AST(SGOT) 21 U/L (15-37); Alanine Aminotransfer ALT/SGPT 25 U/L (13-56); Albumin, Serum 2.9 g/dL (3.2-5.0); Alkaline Phosphatase 79 U/L (45-117); Anion Gap 7 (5-15); BUN 8 mg/dL (7-18); BUN/Creat Ratio 10.9 RATIO (10-20); Calcium,Total 8.1 mg/dL (8.5-10.1); Chloride 100 mmol/L (98-107); Creatinine, Serum 0.73 mg/dL (0.55-1.02); EST Glomerular Filtration Rate 84 mL/min (>60); Est Glom Filt Rate - Afr Amer 101 mL/min (>60); Estimated Creatinine Clearance 59.85 ml/min; Globulin 2.6 g/dL (2.2-4.2); Glucose 278 mg/dL (74-106); Potassium 2.9 mmol/L (3.5-5.1); Protein, Total 5.5 g/dL (6.4-8.2); Sodium Level 133 mmol/L (136-145)
[2024-03-09] MEDS: Carvedilol 6.25 MG Tablet PO (07:46)
--- NOTE | 2024-03-09 07:51 | PN.HOSP_ITS ---
Reason for Visit Reason for Visit: Diagnoses Hyperglycemia, unspecified (03/05/24) Subjective Subjective Feeling better today. Has been tolerating clear diet. No further vomiting. Objective Data Objective Data Vital Signs: Vital Signs Temp Pulse Resp BP Pulse Ox O2 Del Method 36.4 C L 66 18 119/59 L 98 Room Air 03/09/24 03:47 03/09/24 03:47 03/09/24 03:47 03/09/24 03:47 03/09/24 03:47 03/09/24 03:47 Oxygen Delivery Method Room Air Weight: 72.575 kg Body Mass Index (BMI) 31.2 Intake & Output: Intake and Output for Last 24 Hours 03/07/24 03/08/24 03/09/24 23:59 23:59 23:59 Intake Total 2197.92 / 2197.92 660 / 660 1000 / 1000 Balance 2197.92 / 2197.92 660 / 660 1000 / 1000 Lab / Micro Data 03/09/24 06:37 03/09/24 06:37 Labs: Laboratory Results - last 24 hr 03/08/24 10:40: POC Glucose 299 H 03/08/24 16:44: POC Glucose 217 H 03/08/24 21:04: POC Glucose 163 H 03/09/24 03:49: POC Glucose 144 H 03/09/24 06:37: WBC 11.5 H, RBC 3.80 L, Hgb 11.6 L, Hct 34.4 L, MCV 90.5, MCH 30.5, MCHC 33.7, RDW Std Deviation 40.5, RDW Coeff of [place] 12.4, Plt Count 288, MPV 9.4, Immature Gran % (Auto) 0.700, Neut % (Auto) 62.0, Lymph % (Auto) 28.3, [place] % (Auto) 7.4, Eos % (Auto) 1.3, Baso % (Auto) 0.3, Absolute Neuts (auto) 7.1, Absolute Lymphs (auto) 3.24, Nucleated RBC % 0, Sodium 133 L, Potassium 2.9 L, Chloride 100, Carbon Dioxide 26.0, Anion Gap 7, BUN 8, Creatinine 0.73, Estim Creat Clear Calc 59.85, Est GFR (MDRD) Af Amer 101, Est GFR (MDRD) Non-Af 84, BUN/Creatinine Ratio 10.9, Glucose 278 H, Calcium 8.1 L, Total Bilirubin 0.80, AST 21, ALT 25, Alkaline Phosphatase 79, Total Protein 5.5 L, Albumin 2.9 L, Globulin 2.6, Albumin/Globulin Ratio 1.1 03/09/24 06:49: POC Glucose 250 H Micro: Microbiology 03/05/24 15:00 Blood Culture (Wb) - Anticubital Left Blood Culture - Preliminary No growth in 48 hours. 03/05/24 15:00 Blood Culture (Wb) #2 - Left Hand Blood Culture - Preliminary No growth in 48 hours. Radiography Diagnostic Testing: Radiology Impression KUB X-Ray 03/08/24 16:20 IMPRESSION: Normal gas pattern. No acute disease. Electronically Signed: Romulo Ochoa MD at 5:08 EDT , Physical Exam Const alert and no apparent distress HEENT head/scalp atraumatic and moist oral mucous membranes Resp normal respiratory effort and no retractions Cardio regular rate, regular rhythm, S1 normal heart sound and S2 normal heart sound GI normal to inspection, nondistended, normoactive bowel sounds and soft to palpation Assessment & Plan Assessment/Plan (1) Hyperglycemia: PLAN: Plan Hyperglycemia * Improved * Acute, likely exacerbated by gastroenteritis. * A1c 6.8. * Excess semaglutide. Has been on that for over a year. Recently has had the dose increased but was having nausea for that. She is concerned that may or symptoms may be related with semaglutide. Recommend restarting glimepiride at 2 mg. She was unsure if she wanted to proceed with that. * She would like to follow-up with Dr. Johnson of endocrinology. She states that she will need a referral and will need to get up with her primary care provider. Told her to reach out to her PCP to see if she can get a referral. Hypokalemia/Hypophosphatemia * replaced and improved Hyponatremia * improving * suspect due to pseudohyponatremia from hyperglycemia IGOR * POA, now resolved * admission creatinine 1.26, went down to 0.61 * likely prerenal no additional work up at this time. Nausea and vomiting. * Supportive management * Improving. * May be related with semaglutide. Patient did receive her dose this week but have advised her to hold off on her dose for next week. Though cannot rule out underlying gastroparesis. Will hold off on gastric emptying study at this time but if does recur in the future that may be a consideration. Also cannot rule out this being gastroenteritis but given his protracted case seems less likely. Chronic conditions: * HLP: continue Atorvastatin * prior CVA: continue statin and clopidogrel * Celiac disease: Nutrition consult, gluten-free diet * Hypothyroidism: TSH low. on pork thyroid. defer mgmt to provider who manages her medication. VTE prophylaxis: SCDs. Disposition: Patient's diet will be advanced and if she tolerates that then she can be discharged home today. Charges/Coding Visit Charges Inpatient E&M: 83645 Subs Hosp L2
[2024-03-09] MEDS: Clopidogrel Bisulfate 75 MG Tablet PO (07:59)
[2024-03-09 08:02] VITALS: BP 125/56; PULSE 73; RESP 16; TEMP 36.6; O2SAT 96
[2024-03-09] MEDS: Pantoprazole Sodium 40 MG in 0.9% Normal Saline (100mL MB+) 100 ML 330 MG IV (09:51)
[2024-03-09] MEDS: Thyroid 60 MG Tablet 120 MG PO (11:41)
[2024-03-09 12:04] LABS: Bedside Glucose 294 mg/dL (74-106)
[2024-03-09 13:21] VITALS: BP 116/65; PULSE 75; RESP 16; TEMP 36.4; O2SAT 98
--- NOTE | 2024-03-09 13:30 | DS.PCM_ITS ---
Providers Date of Admission: 03/05/24 Primary Care Physician: Dr. Preet Farrar, DO Reason For Visit: HYPERGLYCEMIA Diagnosis Discharge Diagnosis (1) Hyperglycemia: Status: Acute Code(s): R73.9 - Hyperglycemia, unspecified Plan Hyperglycemia * Improved * Acute, likely exacerbated by gastroenteritis. * A1c 6.8. * Excess semaglutide. Has been on that for over a year. Recently has had the dose increased but was having nausea for that. She is concerned that may or symptoms may be related with semaglutide. Recommend restarting glimepiride at 2 mg. She was unsure if she wanted to proceed with that. * She would like to follow-up with Dr. Johnson of endocrinology. She states that she will need a referral and will need to get up with her primary care provider. Told her to reach out to her PCP to see if she can get a referral. Hypokalemia/Hypophosphatemia * replaced and improved Hyponatremia * improving * suspect due to pseudohyponatremia from hyperglycemia IGOR * POA, now resolved * admission creatinine 1.26, went down to 0.61 * likely prerenal no additional work up at this time. Nausea and vomiting. * Supportive management * Improving. * May be related with semaglutide. Patient did receive her dose this week but have advised her to hold off on her dose for next week. Though cannot rule out underlying gastroparesis. Will hold off on gastric emptying study at this time but if does recur in the future that may be a consideration. Also cannot rule out this being gastroenteritis but given his protracted case seems less likely. Chronic conditions: * HLP: continue Atorvastatin * prior CVA: continue statin and clopidogrel * Celiac disease: Nutrition consult, gluten-free diet * Hypothyroidism: TSH low. on pork thyroid. defer mgmt to provider who manages her medication. VTE prophylaxis: SCDs. Disposition: Patient's diet will be advanced and if she tolerates that then she can be discharged home today. Medications at Discharge Home Medications ergocalciferol (vitamin D2) 1,250 mcg (50,000 unit) capsule 50,000 unit PO MOFR SUPPLEMENT 12/18/20 thyroid (pork) 120 mg tablet 120 tablet PO DAILY THYROID 12/18/20 atorvastatin 80 mg tablet 80 mg PO QHS cholesterol #30 tabs 11/04/22 clopidogrel 75 mg tablet 75 mg PO DAILY BLOOD THINNER #30 tabs 11/04/22 elderberry fruit 200 mg capsule 1,000 mg PO DAILY SUPPLEMENT 07/01/23 carvedilol 6.25 mg tablet 6.25 mg PO BID 03/05/24 spironolactone 25 mg tablet 25 mg PO DAILY 03/05/24 ondansetron HCl 8 mg tablet 8 mg PO Q8H PRN nausea and vomiting 5 days #15 tabs 03/08/24 pantoprazole 40 mg tablet,delayed release 40 mg PO DAILY #30 tabs 03/08/24 glimepiride 2 mg tablet 2 mg PO BID #60 tabs 03/09/24 Hospital Course Operations None Procedures None Summary of Care Provided Minutes Spent on Discharge: 40 Hospital Course: Patient present with poorly controlled diabetes with a glucose of 490. Patient has been having tractable nausea vomiting and diarrhea. Patient received IV fluids and her blood sugar did improve overall. Patient continued to have nausea and vomiting. Symptoms seem to have begun several months after starting semaglutide which she is taking for diabetes. She did receive her dose while she was here but still had issues regards to nausea and vomiting. Plan was to get a gastric emptying study to see if she did have gastroparesis however since she felt better today I held off on that and advance her diet. Today patient tolerated her diet well. As well as the patient and concerned that maybe her symptoms may be related with semaglutide. This does not rule out the possibility this being gastroparesis. But seems less likely overall as this been going on for some time that this is gastroenteritis. So I have advised her to hold off on her semaglutide and for diabetes will resume her on glimepiride 2 mg twice daily. She is expressed to me that she wants to see Dr. Johnson of endocrinology. She has to get a referral apparently through her primary care provider which has been initiated through by her daughter. Weight / BMI Weight Weight: 72.575 kg Body Mass Index (BMI) 31.2 ABG / Lab / Microbiology Data 03/09/24 06:37 03/09/24 06:37 Laboratory: Laboratory Results - last 24 hr 03/08/24 16:44: POC Glucose 217 H 03/08/24 21:04: POC Glucose 163 H 03/09/24 03:49: POC Glucose 144 H 03/09/24 06:37: WBC 11.5 H, RBC 3.80 L, Hgb 11.6 L, Hct 34.4 L, MCV 90.5, MCH 30.5, MCHC 33.7, RDW Std Deviation 40.5, RDW Coeff of [place] 12.4, Plt Count 288, MPV 9.4, Immature Gran % (Auto) 0.700, Neut % (Auto) 62.0, Lymph % (Auto) 28.3, [place] % (Auto) 7.4, Eos % (Auto) 1.3, Baso % (Auto) 0.3, Absolute Neuts (auto) 7.1, Absolute Lymphs (auto) 3.24, Nucleated RBC % 0, Sodium 133 L, Potassium 2.9 L, Chloride 100, Carbon Dioxide 26.0, Anion Gap 7, BUN 8, Creatinine 0.73, Estim Creat Clear Calc 59.85, Est GFR (MDRD) Af Amer 101, Est GFR (MDRD) Non-Af 84, BUN/Creatinine Ratio 10.9, Glucose 278 H, Calcium 8.1 L, Total Bilirubin 0.80, AST 21, ALT 25, Alkaline Phosphatase 79, Total Protein 5.5 L, Albumin 2.9 L, Globulin 2.6, Albumin/Globulin Ratio 1.1 03/09/24 06:49: POC Glucose 250 H 03/09/24 11:39: POC Glucose 294 H Microbiology: Microbiology 03/05/24 15:00 Blood Culture (Wb) - Anticubital Left Blood Culture - Preliminary No growth in 48 hours. 03/05/24 15:00 Blood Culture (Wb) #2 - Left Hand Blood Culture - Preliminary No growth in 48 hours. Radiography Diagnostic Testing: Radiology Impression KUB X-Ray 03/08/24 16:20 IMPRESSION: Normal gas pattern. No acute disease. Electronically Signed: Romulo Ochoa MD at 5:08 EDT , D/C Instructions Discharge Diet: 2000 Calorie Control Diet and - (Gluten-free) Meaningful Use Info Meaningful Use Meaningful Use Diagnoses (Choose all that apply): None applicable Ischemic Stroke Statin Dosing Therapy Reference: STATIN DOSE THERAPY REFERENCE: * Patients > 75 years receive moderate or high dose statin therapy. * Patients 75 years or YOUNGER should receive HIGH intensity statin dose unless contraindicated. You will be required to document reason for non-treatment if statin daily dose does not meet guidelines. HIGH DOSE STATIN THERAPY DAILY Atorvastatin > than or = to 40 mg Rosuvastatin > than or = to 20 mg Amlodipine + Atorvastatin > than or = to 2.5/40 mg Ezetimibe + Simvastatin 10/80 mg Simvastatin 80mg Discharge Plan Admission Admit Date/Time: 03/05/24 14:47 Primary Reason for Your Visit: Gastroenteritis. Hyperglycemia Attending Provider: Hermes Mirza Primary Care Provider: Preet Farrar Consulting Providers: Adrian Duron Instructions Additional Instructions / Restrictions: Had intractable nausea and vomiting this may be related with Ozempic. As we discussed, hold off on your Ozempic. For your diabetes will use glimepiride 2 mg twice daily. I also added some pantoprazole (Protonix) in case she may have what is called gastritis which is irritation of the stomach lining. If you continue to have issues despite holding your Ozempic, notify your physician or return to the emergency room. Contact your primary care provider about seeing Dr. Johnson of endocrinology. Discharge Orders/Prescriptions Prescriptions: New ondansetron HCl 8 mg tablet 8 mg PO Q8H PRN (Reason: nausea and vomiting) 5 Days Qty: 15 0RF pantoprazole 40 mg tablet,delayed release (DR/EC) 40 mg PO DAILY Qty: 30 0RF glimepiride 2 mg tablet 2 mg PO BID Qty: 60 0RF Continued thyroid (pork) 120 MG tablet 120 tablet PO DAILY Rx Instructions: DOES NOT TAKE ON SATURDAYS ergocalciferol (vitamin D2) 50,000 UNIT capsule 50,000 unit PO MOFR atorvastatin 80 mg Tablet 80 mg PO QHS Qty: 30 2RF clopidogrel 75 mg Tablet 75 mg PO DAILY Qty: 30 2RF elderberry fruit 200 mg capsule 1,000 mg PO DAILY carvedilol 6.25 mg tablet 6.25 mg PO BID spironolactone 25 mg tablet 25 mg PO DAILY Discontinued Ozempic 1 mg/dose (4 mg/3 mL) pen injector 1 mg subcut QWEEK Referrals / Follow Up: [facility] [Provider Group] - Within 1 Month Preet Farrar DO [Primary Care Provider] - Within 2 Weeks Disposition Disposition (needs filled in before D/C Order can be placed): Home, Self Care Charges/Coding Visit Charges Inpatient E&M: 53402 Disch Hosp >30min
--- NOTE | 2024-03-09 14:33 | PHA.DC_ITS ---
Pharmacy [facility] has performed discharge medication reconciliation and counseling for this patient. 1. GLIMEPIRIDE 2MG PO BIDCM 2. ONDANSETRON 8MG PO Q8H PRN NAUSEA/VOMITING 3. PANTOPRAZOLE 40MG PO DAILY The patient's discharge medication list was reviewed for discrepancies and discrepancies were resolved. The patient was counseled on the following discharge medications and changes in medications for homegoing were reviewed. The Reason for Use, instructions for use, and potential side effects were reviewed for all new medications. The patient's questions regarding all of their medications were answered. The patient was able to verbally demonstrate an understanding of their discharge medications. Patient counseled by practice or student teacherVelma. Medications at Discharge Home Medications ergocalciferol (vitamin D2) 1,250 mcg (50,000 unit) capsule 50,000 unit PO MOFR SUPPLEMENT 12/18/20 thyroid (pork) 120 mg tablet 120 tablet PO DAILY THYROID 12/18/20 atorvastatin 80 mg tablet 80 mg PO QHS cholesterol #30 tabs 11/04/22 clopidogrel 75 mg tablet 75 mg PO DAILY BLOOD THINNER #30 tabs 11/04/22 elderberry fruit 200 mg capsule 1,000 mg PO DAILY SUPPLEMENT 07/01/23 carvedilol 6.25 mg tablet 6.25 mg PO BID 03/05/24 spironolactone 25 mg tablet 25 mg PO DAILY 03/05/24 ondansetron HCl 8 mg tablet 8 mg PO Q8H PRN nausea and vomiting 5 days #15 tabs 03/08/24 pantoprazole 40 mg tablet,delayed release 40 mg PO DAILY #30 tabs 03/08/24 glimepiride 2 mg tablet 2 mg PO BID #60 tabs 03/09/24
== END 2024-03-09 16:47 | disposition home or self-care (01) | DRG 638 ==
LOC: ED 13:19 → MS3 14:45
PROVIDERS: Physician Assistant; Admitting Provider Internal Medicine; Emergency Provider Emergency Medicine; PCP Student in an Organized Health Care Education/Training Program
DX: E11.65 Type 2 diabetes mellitus with hyperglycemia (principal); N17.9 Acute kidney failure, unspecified; E83.39 Other disorders of phosphorus metabolism; E11.42 Type 2 diabetes mellitus with diabetic polyneuropathy; I10 Essential (primary) hypertension; E03.9 Hypothyroidism, unspecified; E78.5 Hyperlipidemia, unspecified; E86.0 Dehydration; E87.6 Hypokalemia; R11.2 Nausea with vomiting, unspecified; T38.3X5A Adverse effect of insulin and oral hypoglycemic [antidiabetic] drugs, initial encounter; R00.2 Palpitations; K90.0 Celiac disease; Z79.02 Long term (current) use of antithrombotics/antiplatelets; Z79.84 Long term (current) use of oral hypoglycemic drugs; Z79.85 Long-term (current) use of injectable non-insulin antidiabetic drugs; Z79.899 Other long term (current) drug therapy; Z87.891 Personal history of nicotine dependence; Z86.73 Personal history of transient ischemic attack (TIA), and cerebral infarction without residual deficits
CPT/HCPCS: 36415; 74018; 80048; 80053; 81001; 82009; 82248; 82962; 83036; 83735; 84100; 84443; 85025; 85610; 87040; 97802; 99284; J7030; J7050; A4216; J2405

== ENCOUNTER 2024-05-22 20:20 | Emergency (ER) | payer MEDICARE, MEDICAID, SELFPAY ==
[2024-05-22 20:20] VITALS: BP 228/98; PULSE 79; RESP 16; TEMP 35.8; O2SAT 96; BMI 32.2
--- NOTE | 2024-05-22 20:44 | CT_ITS ---
INDICATION: LLQ pain WITH CRAMPS, CHILLS, NAUSEA, HX ULCERTIVE COLITIS AND DIAB, CHOLECYSTECTOMY. COMPARISON: 04/09/[address] IV Contrast dosage and agent: 100 cc [id number] IV. A radiation dose optimization technique was used for this scan. RADIATION DOSAGE (If Supplied By Facility): CTDIvol/DLP = ( 16.83 ) / ( 1147.43 ) mGy/mGycm FINDINGS: Contrast enhanced serial CT axial images through the abdomen and pelvis with coronal and sagittal reformatted series. ABDOMINAL WALL: Anterior abdominal wall mesh repair. PANCREAS: No peripancreatic fat stranding. BOWEL/MESENTERY: No dilated bowel loops. No significant free fluid. No free air. GALLBLADDER: Gallbladder appears to be absent. LIVER/STOMACH: No obvious abnormality. URINARY COLLECTING SYSTEM/ KIDNEYS: No obstructing ureteral calculus. No significant renal parenchymal abnormality. APPENDIX: Appendix is not definitely identified, however, there are no significant right lower quadrant inflammatory fat changes or focal fluid collection to suggest acute appendicitis. UTERUS/ADNEXA: Prominent endometrial thickening measuring up to 1.4 cm in this postmenopausal patient. LUNG BASES: Unremarkable. BONES: L1-L2 orthopedic chris and pedicle screw construct without obvious hardware complication. CT/Abdomen/Pelvis W IV Cont ONLY IMPRESSION: Prominent endometrial thickening measuring up to 1.4 cm in this postmenopausal patient. Neoplastic process is not excluded. Appendix is not definitely identified, however, there are no significant right lower quadrant inflammatory fat changes or focal fluid collection to suggest acute appendicitis. Otherwise, no acute abdominal abnormality is identified, to include no evidence of obstructing ureteral calculus. Electronically Signed: Javad Gary MD at 22:16 EDT ,
--- NOTE | 2024-05-22 20:44 | ED.VIS.GI ---
HPI HPI - GI History of Present Illness Chief Complaint: Abd Pain Informant: patient and family Narrative Narrative: Here with sister worsening left lower quadrant abdominal pain progressed since yesterday. Nausea without vomiting. No diarrhea. No bloody stools. No urinary symptoms. No hematuria. Chills this evening no fevers. Cholecystectomy in the past unclear if she has had her appendix removed. History of ulcerative colitis with no bowel resections in the past. Diabetes states sugars been elevated. Blood pressure elevated in the ED no headaches no chest pains. Prior similar symptoms: No PFSH PFSH Medical History (Updated 05/22/24 @ 22:[address] Иван Valencia, DO) Marijuana smoker Anxiety Depression Diabetes Former smoker Stroke/cerebrovascular accident Former tobacco use Head injury Near syncope Elevated troponin Abnormal EKG Hyponatremia Prolonged QT interval Polyneuropathy Occlusion of left internal carotid artery Ischemic stroke 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 Irritable bowel syndrome Celiac disease Ulcerative colitis Muscle spasm Hypothyroidism Hypertension Vitamin D deficiency Diabetes mellitus Lumbar spinal stenosis Lumbar disc herniation with radiculopathy Ambulatory dysfunction Intractable back pain Home Medications ?Medication ?Instructions ?Recorded ?Last Taken ?Type ergocalciferol (vitamin D2) 1,250 50,000 unit PO MOFR SUPPLEMENT 12/18/20 03/04/24 History mcg (50,000 unit) capsule thyroid (pork) 120 mg tablet 120 tablet PO DAILY THYROID 12/18/20 03/04/24 History atorvastatin 80 mg tablet 80 mg PO QHS cholesterol #30 tabs 11/04/22 03/04/24 Rx clopidogrel 75 mg tablet 75 mg PO DAILY BLOOD THINNER #30 11/04/22 03/04/24 Rx tabs carvedilol 6.25 mg tablet 6.25 mg PO BID 03/05/24 03/05/24 History spironolactone 25 mg tablet 25 mg PO DAILY 03/05/24 03/04/24 History glimepiride 2 mg tablet 2 mg PO BID #60 tabs 03/09/24 Unknown Rx buspirone 5 mg tablet 5 mg PO TID PRN 05/22/24 Unknown History clonidine HCl 0.1 mg tablet 0.1 mg PO Q8H PRN PRN blood 05/22/24 Unknown History pressure insulin glargine 100 unit/mL (3 14 unit subcut DAILY 05/22/24 Unknown History mL) subcutaneous pen (Lantus Solostar U-100 Insulin) ondansetron 4 mg disintegrating 4 mg PO Q8H PRN PRN Nausea #10 tabs 05/22/24 Unknown Rx tablet pantoprazole 40 mg tablet,delayed 40 mg PO DAILY #30 tabs 05/22/24 Unknown Rx release vitamin C 30 mg-zinc citrate 1.1 1 tab PO DAILY 05/22/24 Unknown History mg-elderberry 25 mg chewable tablet (Sambucus Elderberry) Allergy/AdvReac Type Severity Reaction Status Date / Time prednisone Allergy Intermediate Itching Verified 05/22/24 20:24 aspirin Allergy mouth Verified 05/22/24 20:24 swelling gluten Allergy Abd Verified 05/22/24 20:24 cramps/diarrhea ibuprofen Allergy mouth Verified 05/22/24 20:24 swelling Sulfa (Sulfonamide Allergy pt can't Verified 05/22/24 20:24 Antibiotics) remember Family History Mother Heart disease Father Heart disease Hypertension CAD (coronary artery disease) Myocardial infarction Thyroid disorder Diabetes Surgical History Hx of umbilical hernia repair S/P tubal ligation S/P cholecystectomy S/P tonsillectomy and adenoidectomy History of lumbar fusion History of lumbar discectomy Social History household members: none Smoking Status: Current some day smoker tobacco type: cigarettes alcohol intake: never substance use type: marijuana and other details: Medical cannabis, usually daily. ROS ROS ED Constitutional Constitutional ED: Reports chills; Denies fever(s) or sweats Eyes Eyes: Denies change in vision ENT ENT ED: Denies dysphagia or sore throat Cardiovascular Cardiovascular: Denies chest pain, leg edema, palpitations or racing heartbeat Respiratory/Chest Respiratory/Chest: Denies cough, dyspnea or dyspnea on exertion Gastrointestinal Gastrointestinal: Reports abdominal pain and nausea; Denies diarrhea or vomiting Genitourinary Genitourinary ED: Denies dysuria, hematuria or urinary frequency Musculoskeletal Musculoskeletal: Denies back pain, extremity pain or neck pain Integumentary Denies rash or wounds Neurologic Neurologic: Denies headache(s), paresthesias or weakness EXAM Physical Exam Const Vital Signs: 05/22/24 20:20 05/22/24 22:20 Temperature 96.5 F L Temperature Source Temporal Pulse Rate 79 77 Respiratory Rate 16 20 H Blood Pressure 228/98 H 203/72 H Blood Pressure Mean 141 115 Pulse Ox 96 Oxygen Delivery Method Room Air Positive well nourished and well developed General Appearance ED: well developed and NAD HEENT Reports moist mucous membranes normocephalic and atraumatic Eyes EOMs intact bilaterally and conjunctivae normal General Eye ED: Yes normal appearance of both eyes Neck no lymphadenopathy and supple General: Negative for tenderness Chest Wall Chest: Negative for tenderness Resp normal respiratory effort and normal air movement Effort and Inspection: symmetric chest movement; Negative for respiratory distress Cardio regular rate, regular rhythm and no murmurs Peripheral Pulses: pulses 2+ throughout GI normal to inspection, nondistended, normoactive bowel sounds GI Narrative: Tender deep palpation left lower quadrant. No guarding or rebound. Palpation: Negative for guarding or rebound tenderness present Back/Spine no CVA tenderness and no thoracic nor lumbar tenderness Extremity normal to inspection General Extremety ED: Negative for edema or tenderness General Extremity: Negative for edema Neuro oriented x3 and no sensory deficits noted Sensorium / Orientation: awake and alert Skin no rashes or lesions noted and no wounds MDM MDM MDM Narrative Medical decision making narrative: Interventions / MDM: Differential diagnosis: Kidney stone, diverticulitis, colitis, endometrial thickening. Diagnosis considered but do not suspect: My EKG interpretation: N/A Imaging independently reviewed and interpreted by myself: CT abdomen pelvis IV contrast: Thickened endometrial lining of 1.4 cm. No kidney stones, no colitis. External documents reviewed: N/A Test considered but not ordered:N/A ED course: Patient presenting with increasing pain left lower quadrant with nausea symptoms. morphine Zofran fluids. Basic labs urine CT scan ordered for further evaluation. Elevated blood pressure no hypertension emergency symptoms 2199: Blood pressure systolic 118 on recheck on the monitor. Pain is well-controlled. Labs white count of 14.8 creatinine 0.66. Urine without infection. CT abdomen pelvis pending results. 2229: CT scan 1.4 cm endometrial thickening. She denies any abnormal vaginal bleeding. No kidney stones or colitis noted. She does not follow patient admitting representative. She was referred to on-call gynecology for further outpatient testing. Blood pressure back up to 203. She takes her Coreg twice a day. Last dose at 5 PM. She takes her spironolactone at night. She denies any hypertensive emergency symptoms she states typically her blood pressure is normal with her doctors office. Likely situation at this time. She will monitor her blood pressure follow-up with her PCP. She had epigastric discomfort on reevaluation therefore GI cocktail was ordered. Will be prescribed pantoprazole Zofran as needed. She will be given follow-up with also GI as an outpatient she has ulcerative colitis history. No questions were answered. Re-evaluation: stable Disposition discussed with patient/family/significant other: Patient and sister Case discussed with consulting clinician: N/A This note was generated with [employer] dictation software. It may contain incorrect words, spelling, and punctuation that were not noted in checking the note before signing. Lab Data Attestation: I reviewed the patient's lab results. Labs: Laboratory Results - last 24 hr 05/22/24 05/22/24 20:55 21:13 WBC 14.8 H RBC 4.54 Hgb 13.8 Hct 40.6 MCV 89.4 MCH 30.4 MCHC 34.0 RDW Std Deviation 41.5 RDW Coeff of Neida 12.6 Plt Count 326 MPV 9.5 Immature Gran % (Auto) 0.500 Neut % (Auto) 81.1 H Lymph % (Auto) 12.6 L [place] % (Auto) 5.1 Eos % (Auto) 0.5 Baso % (Auto) 0.2 Absolute Neuts (auto) 12.0 H Absolute Lymphs (auto) 1.86 Nucleated RBC % 0 Sodium 130 L Potassium 4.3 Chloride 95 L Carbon Dioxide 26.0 Anion Gap 9 BUN 19 H Creatinine 0.66 Estim Creat Clear Calc 60.85 Est GFR (MDRD) Af Amer 115 Est GFR (MDRD) Non-Af 95 BUN/Creatinine Ratio 29.0 H Glucose 232 H Calcium 9.6 Urine Color Yellow Urine Clarity Clear Urine pH 6.5 Ur Specific [place] 1.015 Urine Protein 30 H Urine Glucose (UA) 250 H Urine Ketones 5 H Urine Occult Blood 25 H Urine Nitrite Negative Urine Bilirubin Negative Urine Urobilinogen Normal Ur Leukocyte Esterase Negative Urine RBC 0-5 SEEN Urine WBC 0 SEEN Ur Squamous Epith Cells 0 SEEN Urine Bacteria 0 SEEN Urine Mucus 0 SEEN Radiography Diagnostic Testing: Clinical Impression(s) from Imaging Studies Abdomen/Pelvis CT 08/25/24 20:44 IMPRESSION: Prominent endometrial thickening measuring up to 1.4 cm in this postmenopausal patient. Neoplastic process is not excluded. Appendix is not definitely identified, however, there are no significant right lower quadrant inflammatory fat changes or focal fluid collection to suggest acute appendicitis. Otherwise, no acute abdominal abnormality is identified, to include no evidence of obstructing ureteral calculus. Electronically Signed: Javad Gary MD at 22:16 EDT , Discharge Plan Triage Chief Complaint: Abd Pain ED Provider: Иван Valencia Dx/Rx/DC Orders Clinical Impression: Abdominal pain, LLQ, Thickened endometrium, Elevated blood pressure reading in office with diagnosis of hypertension, Hx of ulcerative colitis Instructions: Abdominal Pain, ED Gastritis (Adult) Prescriptions: New pantoprazole 40 mg tablet,delayed release (DR/EC) 40 mg PO DAILY Qty: 30 0RF ondansetron 4 mg tablet,disintegrating 4 mg PO Q8H PRN PRN (Reason: Nausea) Qty: 10 0RF No Action thyroid (pork) 120 MG tablet 120 tablet PO DAILY Rx Instructions: DOES NOT TAKE ON SATURDAYS ergocalciferol (vitamin D2) 50,000 UNIT capsule 50,000 unit PO MOFR atorvastatin 80 mg Tablet 80 mg PO QHS Qty: 30 2RF clopidogrel 75 mg Tablet 75 mg PO DAILY Qty: 30 2RF carvedilol 6.25 mg tablet 6.25 mg PO BID spironolactone 25 mg tablet 25 mg PO DAILY glimepiride 2 mg tablet 2 mg PO BID Qty: 60 0RF Sambucus Elderberry 30-1.1-25 mg tablet,chewable 1 tab PO DAILY buspirone 5 mg tablet 5 mg PO TID PRN clonidine HCl 0.1 mg tablet 0.1 mg PO Q8H PRN PRN (Reason: blood pressure) insulin glargine [Lantus Solostar U-100 Insulin] 100 unit/mL (3 mL) insulin pen 14 unit subcut DAILY Primary Care Provider: Preet Farrar Referrals: Preet Farrar, [Primary Care Provider] - 3-5 Days Carlo Sharma MD [Med Staff - Active Staff] - 1-2 Weeks Friend,Michi, DO [Med Staff - Active Staff] - 1-2 Weeks Activity Restrictions/Additional Instructions: Your CT abdomen pelvis notes a thickened endometrial lining of 1.4 cm. No other acute findings noted. Take medication as prescribed. Follow-up with gynecology for further testing. Your blood pressure elevated likely situational. You have no chest pains or headaches. Continue your blood pressure medicines keep a log of your blood pressure in the morning and at night before bed. Follow-up with your doctor for recheck of your blood pressure. Print Language: Irish Disposition Disposition: Home, Self Care
[2024-05-22 21:03] LABS: Absolute Lymphocyte Count 1.86 X10^3/uL (0.83-4.51); Basophil# 0.03 X10^3/uL; Basophil% 0.2 % (0-1); Eosinophil# 0.08 X10^3/uL; Eosinophils% 0.5 % (0-5); Hematocrit 40.6 % (37-47); Hemoglobin 13.8 g/dL (12.0-15.0); Lymphocyte # 1.86 X10^3/ul (0.83-4.51); Lymphocyte % 12.6 % (19-41); Mean Corpuscular Hgb 30.4 pg (27.0-32.0); Mean Corpuscular Volume 89.4 fL (81-99); Mean Platelet Vol. 9.5 fl (6.2-12.0); Monocyte# 0.75 X10^3/uL; Monocyte% 5.1 % (0-10); NRBC Flagged by Analyzer 0 % (0-5); Neutrophil # 11.98 X10^3/uL (2.7-7.7); Neutrophil % 81.1 % (47-70); Platelet Count 326 K/mm3 (150-450); RBC Distribution Width CV 12.6 % (11.6-14.6); RBC Distribution Width SD 41.5 fl (35.1-43.9); Red Blood Count 4.54 M/mm3 (4.2-5.4); White Blood Count 14.8 K/mm3 (4.4-11.0)
[2024-05-22] MEDS: Ondansetron 4 MG/2 ML Vial IV (21:13)
[2024-05-22] MEDS: 0.9% Normal Saline (1000mL) 1,000 ML 1000 ML IV (21:13)
[2024-05-22] MEDS: Morphine 4 MG/ML Syringe IV (21:13)
[2024-05-22 21:17] LABS: Bacteria 0 SEEN /hpf (None Seen); Mucous, Urine 0 SEEN /hpf (<or=2+); Squamous Epithelial Cells - UA 0 SEEN /hpf (5-10); White Blood Cells 0 SEEN /hpf (0-5)
[2024-05-22 21:24] LABS: Color, Urine Yellow (Yellow); Glucose, Dipstick 250 mg/dl (Normal); Ketone-Dipstick 5 mg/dl (Negative); Leukocyte Esterase-Dipstick Negative /ul (Negative); Nitrite-Dipstick Negative (Negative); Occult Blood-Urine 25 /ul (Negative); Protein-Dipstick 30 mg/dl (Negative); Specific Gravity, Urine 1.015 (1.002-1.030); Urine Bilirubin Dipstick Negative (Negative); Urine Clarity Clear (Clear); Urine Urobilinogen Normal (Normal); Urine pH 6.5 (5.0 - 8.0)
[2024-05-22 21:31] LABS: Anion Gap 9 (5-15); BUN 19 mg/dL (7-18); Calcium,Total 9.6 mg/dL (8.5-10.1); Chloride 95 mmol/L (98-107); Creatinine, Serum 0.66 mg/dL (0.55-1.02); EST Glomerular Filtration Rate 95 mL/min (>60); Est Glom Filt Rate - Afr Amer 115 mL/min (>60); Estimated Creatinine Clearance 60.85 ml/min; Glucose 232 mg/dL (74-106); Potassium 4.3 mmol/L (3.5-5.1); Sodium Level 130 mmol/L (136-145)
[2024-05-22 21:33] LABS: Red Blood Cells-Urine 0-5 SEEN /hpf (0-5)
[2024-05-22 22:20] VITALS: BP 203/72; PULSE 77; RESP 20
[2024-05-22 22:34] VITALS: BP 194/76; PULSE 78; RESP 16; TEMP 37.1; O2SAT 97
[2024-05-22] MEDS: Lidocaine 2% Viscous15 ML UDC 15 ML PO (22:38)
[2024-05-22] MEDS: Mag /Aluminum/Simeth WCH UDC 30 ML ORAL.SUSP PO (22:39)
== END 2024-05-22 22:42 | disposition home or self-care (01) ==
PROVIDERS: Emergency Provider Emergency Medicine; PCP Student in an Organized Health Care Education/Training Program; Visit Provider Emergency Medicine
DX: R10.32 Left lower quadrant pain (principal); E11.42 Type 2 diabetes mellitus with diabetic polyneuropathy; E11.65 Type 2 diabetes mellitus with hyperglycemia; R93.89 Abnormal findings on diagnostic imaging of other specified body structures; I10 Essential (primary) hypertension; R11.0 Nausea; F17.210 Nicotine dependence, cigarettes, uncomplicated; Z79.02 Long term (current) use of antithrombotics/antiplatelets; Z79.84 Long term (current) use of oral hypoglycemic drugs; Z79.899 Other long term (current) drug therapy; Z87.19 Personal history of other diseases of the digestive system
CPT/HCPCS: 74177; 80048; 81001; 85025; 96361; 96374; 96375; 99284; J7030; Q9967; A4216; J2405

== ENCOUNTER → 2024-06-02 | Outpatient (CLI) | payer MEDICARE, MEDICAID, SELFPAY ==
[2024-06-07 00:07] LABS: Chlamydia By Nucleic Acid AMP Negative (Negative); Gonococcus By Nucleic Acid AMP Negative (Negative)
[2024-06-08 03:07] LABS: HPV APTIMA, High Risk Positive (Negative); HPV Genotype 16, Aptima Negative (Negative); HPV Genotype 18,45 Aptima Negative (Negative)
== END | disposition home or self-care (01) ==
LOC: LABSPEC 15:21
PROVIDERS: PCP Student in an Organized Health Care Education/Training Program; Referring Provider Nurse Practitioner Family; Visit Provider Nurse Practitioner Family
DX: Z12.4 Encounter for screening for malignant neoplasm of cervix (principal); N89.8 Other specified noninflammatory disorders of vagina; Z20.2 Contact with and (suspected) exposure to infections with a predominantly sexual mode of transmission; Z11.3 Encounter for screening for infections with a predominantly sexual mode of transmission
CPT/HCPCS: 87070; 87205; 87491; 87591; 87624; 88175; G0145

== ENCOUNTER → 2024-06-04 | Outpatient (CLI) | payer MEDICARE, MEDICAID, SELFPAY ==
--- NOTE | 2024-06-04 10:18 | US_ITS ---
HISTORY: pelvic pain, thickened endo on CT. TECHNIQUE: Transabdominal and transvaginal pelvic ultrasound was performed with lorenzo scale , spectral Doppler, and color Doppler evaluation. 97 images. COMPARISON: CT 05/22/2024. FINDINGS: UTERUS: 7.4 x 3.6 x 5.1 cm. Anteverted. ENDOMETRIAL THICKNESS: 1.8 cm, heterogeneous with cystic spaces. RIGHT OVARY: 1.2 x 1.4 x 1.7 cm. No adnexal masses. LEFT OVARY: Not visualized due to overlying bowel gas. No adnexal masses. FREE FLUID: None. URINARY BLADDER: Well-distended at 451 cc. US/Pelvic w/ Transvaginal IMPRESSION: Moderate thickening of the endometrial complex with a multicystic appearance, which can be seen with endometrial hyperplasia, polyposis, or endometrial carcinoma. Recommend correlation with MRI and/or endometrial biopsy. Electronically Signed: Kat Walter MD at 11:44 EDT ,
== END | disposition home or self-care (01) ==
LOC: US 10:13
PROVIDERS: PCP Student in an Organized Health Care Education/Training Program; Referring Provider Nurse Practitioner Family; Visit Provider Nurse Practitioner Family
DX: R93.89 Abnormal findings on diagnostic imaging of other specified body structures (principal); R10.2 Pelvic and perineal pain
CPT/HCPCS: 76830; 76856

== ENCOUNTER → 2024-06-06 | Outpatient (CLI) | payer MEDICARE, MEDICAID, SELFPAY ==
[2024-06-06 12:15] LABS: Absolute Lymphocyte Count 1.91 X10^3/uL (0.83-4.51); Absolute Neutrophil Count 6.9 X10^3/uL (2.0-7.7); Basophil# 0.05 X10^3/uL; Basophil% 0.5 % (0-1); Eosinophil# 0.19 X10^3/uL; Eosinophils% 1.9 % (0-5); Hemoglobin 13.3 g/dL (12.0-15.0); Lymphocyte # 1.91 X10^3/ul (0.83-4.51); Lymphocyte % 19.3 % (19-41); Mean Corp Hgb Conc 32.4 g/dL (32-36); Mean Corpuscular Hgb 30.4 pg (27.0-32.0); Mean Corpuscular Volume 93.6 fL (81-99); Mean Platelet Vol. 9.7 fl (6.2-12.0); Monocyte# 0.77 X10^3/uL; Monocyte% 7.8 % (0-10); NRBC Flagged by Analyzer 0 % (0-5); Neutrophil # 6.93 X10^3/uL (2.7-7.7); Neutrophil % 70.1 % (47-70); Platelet Count 334 K/mm3 (150-450); RBC Distribution Width CV 12.9 % (11.6-14.6); RBC Distribution Width SD 44.5 fl (35.1-43.9); Red Blood Count 4.38 M/mm3 (4.2-5.4); White Blood Count 9.9 K/mm3 (4.4-11.0)
[2024-06-09 16:09] LABS: ACCA 16 units (0-90); ALCA 0 units (0-60); AMCA 9 units (0-100); gASCA 3 units (0-50)
== END | disposition home or self-care (01) ==
LOC: LAB 11:44
PROVIDERS: PCP Student in an Organized Health Care Education/Training Program; Referring Provider Student in an Organized Health Care Education/Training Program; Visit Provider Student in an Organized Health Care Education/Training Program
DX: R10.2 Pelvic and perineal pain (principal)
CPT/HCPCS: 36415; 83516; 85025; 86036; 86671

== ENCOUNTER → 2024-06-08 | Outpatient (CLI) | payer MEDICARE, MEDICAID, SELFPAY ==
--- NOTE | 2024-06-08 | EMB_PTH ---
PATIENT: LEIDY AMADO LOC: [facility] U#:[id number] AGE/SX: 68/F ROOM: RE06/08/[address]: MARAH Hanna : 1955 BED: DIS: 06/08/2024 SPEC #: [id number] RECD: 06/08/24 14:03 STATUS: ROSALINA JAKE #: [id number] LISA: 06/08/24 00:[address]: Angelina Muñoz NP DEPT: SURGICAL PATHOLOGY RECD BY: Zulma Daniels ENTERED: 06/09/24 05:38 SP TYPE: ENDOM BX/C LISSY DR: Dr. Preet Farrar DO Tissues: Endometrium, NOS Procedures: Surgery Specimen Level IV HEADER OPERATION: Endometrial biopsy PRE-OP DIAGNOSIS: Thickened endometrium TISSUE SUBMITTED: Endometrial tissue MICROSCOPIC DIAGNOSIS Endometrial biopsy: Strips of benign endometrial epithelium and superficial fragments of benign endometrial tissue. A minute fragment of endometrial tissue with morular metaplasia. See comment. BERNICE/ 06/10/2024 COMMENT Clinical correlation and appropriate follow up are necessary. Rebiopsy is suggested, if clinically indicated. Case has been reviewed in consultation with Dr. Harris who concurs with the above diagnosis. IDC:AM MICROSCOPIC DESCRIPTION Slides are reviewed. GROSS DESCRIPTION Received is one container labeled with the patient's name and not further designated. The specimen consists of multiple irregular fragments of spicer mucoid tissue that in aggregate measure 2.0 x 0.5 x 0.1 cm. The specimen is totally submitted in one cassette. 06/09/2024 TC:5 CPT:54645
== END | disposition home or self-care (01) ==
LOC: LABSPEC 14:08
PROVIDERS: PCP Student in an Organized Health Care Education/Training Program; Referring Provider Nurse Practitioner Women's Health; Visit Provider Nurse Practitioner Women's Health
DX: R93.89 Abnormal findings on diagnostic imaging of other specified body structures (principal)
CPT/HCPCS: 88305

== ENCOUNTER → 2024-06-09 | Outpatient (CLI) | payer MEDICARE, MEDICAID, SELFPAY ==
[2024-06-13 03:13] LABS: Pancreatic Elastase, Fecal 534 (>200)
[2024-06-14 20:08] LABS: Calprotectin, Stool 186 ug/g (0-120)
== END | disposition home or self-care (01) ==
LOC: LABSPEC 09:32
PROVIDERS: PCP Student in an Organized Health Care Education/Training Program; Referring Provider Student in an Organized Health Care Education/Training Program; Visit Provider Student in an Organized Health Care Education/Training Program
DX: K58.9 Irritable bowel syndrome, unspecified (principal); R10.2 Pelvic and perineal pain
CPT/HCPCS: 82653; 83630; 83993

== ENCOUNTER 2024-07-26 05:50 | Day surgery (SDC) | payer MEDICARE, MEDICAID, SELFPAY ==
--- NOTE | 2024-07-21 10:55 | EKG12_ITS ---
Test Reason : PRE OP Blood Pressure : / mmHG Vent. Rate : 063 BPM Atrial Rate : 063 BPM P-R Int : 250 ms QRS Dur : 080 ms QT Int : 394 ms P-R-T Axes : 000 035 019 degrees QTc Int : 403 ms Sinus rhythm with 1st degree A-V block Otherwise normal ECG Confirmed by KALIN TURNER, KIMBERLEY ([id number]), electronic news gathering editor ANNMARIE GANT ([id number]) on 07/21/2024 2:11:14 PM Referred By: Anushka Hall Confirmed By:KIMBERLEY GAGNON MD
[2024-07-21 14:18] LABS: AST(SGOT) 13 U/L (15-37); Alanine Aminotransfer ALT/SGPT 18 U/L (13-56); Albumin, Serum 3.5 g/dL (3.2-5.0); Alkaline Phosphatase 88 U/L (45-117); Anion Gap 5 (5-15); BUN 19 mg/dL (7-18); BUN/Creat Ratio 26.9 RATIO (10-20); Calcium,Total 9.5 mg/dL (8.5-10.1); Chloride 106 mmol/L (98-107); Creatinine, Serum 0.71 mg/dL (0.55-1.02); EST Glomerular Filtration Rate 87 mL/min (>60); Est Glom Filt Rate - Afr Amer 106 mL/min (>60); Globulin 3.6 g/dL (2.2-4.2); Glucose 191 mg/dL (74-106); Protein, Total 7.1 g/dL (6.4-8.2); Sodium Level 136 mmol/L (136-145); Thyroid Stim Hormone (TSH) 0.143 uIU/mL (0.358-3.740)
[2024-07-21 15:07] LABS: Hemoglobin A1c 7.2 % (3.8-5.6)
[2024-07-26] VITALS (8 sets, daily range): BP systolic 120–125; BP diastolic 54–69; PULSE 64–68; RESP 16–18; TEMP 36.4–36.8; O2SAT 92–96; BMI 35.1
--- OUTSIDE RECORDS SUMMARY | 2024-07-26 05:53 | XMS RPT_ITS | CCD ---
Author Organization [facility] Care Team Providers Care Nurse Technician Name Role Phone Unavailable Primary Care Provider Unavailabl e Preet Farrar DO Primary Care Provider Preet Farrar DO Primary Care Provider Preet Farrar DO Primary Care Provider PREET FARRAR DO Primary Care Physician PREET FARRAR DO Primary Care Unavailable ELOISA LVEIN MD Attending Unavailable Preet Farrar DO Primary Care Provider ANGEL CANDELARIOON Attending Unavailable FARRAR, PREET L Primary Care Unavailable CANDELARIO, JACQUELINE Referring Unavailable FARRAR, PREET L Primary Care Unavailable CANDELARIO, JACQUELINE Attending Unavailable FARRAR, PREET L Primary Care Unavailable FARRAR, PREET L Attending Unavailable FARRAR, PREET L Primary Care Unavailable FARRAR, PREET L Attending Unavailable FARRAR, PREET L Primary Care Unavailable FARRAR, PREET L Referring Unavailable FARRAR, PREET L Primary Care Unavailable FARRAR, PREET L Primary Care Unavailable FARRAR, PREET L Referring Unavailable FARRAR, PREET L Primary Care Unavailable LEAH RIVERO Referring Unavailable FARRAR, PREET L Primary Care Unavailable FARRAR, PREET L Primary Care Unavailable CANDELARIO, JACQUELINE Attending Unavailable FARRAR, PREET L Primary Care Unavailable CANDELARIO, JACQUELINE Attending Unavailable FARRAR, PREET L Primary Care Unavailable FARRAR, PREET L Attending Unavailable FARRAR, PREET L Primary Care Unavailable BEAN ISAAC Attending Unavaila ble FARRAR, PREET L Referring Unavailable FARRAR, PREET L Primary Care Unavailable FARRAR, PREET L Referring Unavailable FARRAR, PREET L Primary Care Unavailable CATALINA YOUNG Attending Unavailable FARRAR, PREET L Primary Care Unavailable LEAH RIVERO Referring Unavailable PREET FARRAR Primary Care Unavailable LEAH RIVERO Attending Unavailable PREET FARRAR Primary Care Unavailable JACQUELINE CANDELARIO Attending Unavailable PREET FARRAR Primary Care Unavailable PREET FARRAR Referring Unavailable PREET FARRAR Primary Care Unavailable Allergies Allergy Classification Reported Allergen(s) Allergy Type Date of Onset Reaction(s) Facility (1 source) Aluminum aspirin Drug Allergy 1 Swelling [facility] Work Phone: (1 source) Sulfonamides (Antibiotic) Propensity to adverse reactions to drug 1 Swelling [facility] Work Phone: (20 sources) Wheat gluten extract Drug Allergy 7 Diarrhea, Unknown, Intolerance [facility] Work Phone: (1 source) Metformin And Related Propensity to adverse reactions to drug 1 Diarrhea, Itching [facility] Work Phone: (20 sources) metFORMIN; Translations: [metformin] Drug Allergy 0 GI Upset, Itching [facility] (20 sources) predniSONE; Translations: [prednisone] Drug Allergy 3 Itching [facility] (12 sources) Salicylic Acid; Translations: [salicylates] Drug Allergy 6 [facility] Work Phone: (20 sources) Sulfonamides (Antibiotic); Translations: [SULFA (SULFONAMIDE ANTIBIOTICS)] Propensity to adverse reactions 6 Rash [facility] Work Phone: (20 sources) Salicylate product Propensity to adverse reactions 6 Hives, GI Upset [facility] Work Phone: (1 source) Gluten Food allergy [facility] (1 source) Sulfonamide; Translations: [sulfa drugs] Drug allergy [facility] (1 source) Gluten; Translations: [GLUTEN] Propensity to adverse reactions to drug (disorder) 7 [facility] Medications Current Medications Medication Drug Class(es) Dates Sig (Normalized) Sig (Original) Acetaminophen (1 source) Start: 12-21-2020 acetaminophen (TYLENOL) tablet 650 mg atorvastatin 80 mg oral tablet (20 sources) HMG-CoA Reductase Inhibitor Start: 01-05-2023 End: 05-23-2024 take 1 tablet by mouth once daily atorvastatin (LIPITOR) 80 mg tablet Indications: Ischemic stroke without residual deficits (HCC) Take 1 tablet by mouth once daily. 90 tablet 1 05/23/2024 Active Start: 11-05-2022 take 1 tablet by vaibhav th once daily atorvastatin (LIPITOR) 80 mg tablet Indications: Ischemic stroke without residual deficits (HCC) Take 1 tablet by mouth once daily. 0 11/05/2022 Active End: 11-05-2022 atorvastatin (LIPITOR) 10 mg tablet Take 80 mg by mouth once daily. 0 11/05/2022 Discontinued (Adjust Sig - Block E-Cancel) Comment on above: Take 1 tablet by vaibhav th once daily. Take 80 mg by mouth once daily. Blood Pressure Monitor (BLOOD PRESSURE KIT) (20 sources) Start: 01-24-2022 Blood Pressure Monitor (BLOOD PRESSURE KIT) Indications: Essential hypertension, benign 1 Each as directed. Dx: essential hypertension 1 Kit 01/24/2022 Active Start: 01-24-2022 Blood Pressure Monitor (BLOOD PRESSURE KIT) Indications: Essential hypertension, benign 1 Each as directed. Dx: essential hypertension 1 Kit 0 01/24/2022 Active Comment on above: 1 Each as directed. Dx: essential hypertension busPIRone hydrochloride 5 mg oral tablet (14 sources) Start: 11-25-19 End: 02-23-20 take 1 tablet by mouth every eight hours as needed busPIRone (BUSPAR) 5 mg tablet Take 1 tablet by mouth three times a day as needed. 90 tablet 2 11/25/2023 02/23/2024 Active Comment on above: Take 1 tablet by vaibhav th three times a day as needed. carvedilol 6.25 mg oral tablet (20 sources) alpha-Adrenergic Kari, beta-Adrenergic Kari Start: 10-21-19 End: 02-29-20 take 1 tablet by mouth twice daily at mealtime carvedilol (COREG) 6.25 mg tablet Take 1 tablet by mouth two times a day with meals. 180 tablet 3 02/29/2024 Active End: 07-15-2023 carvedilol (COREG) 25 mg tab let Take 12.5 mg by mouth twice daily with meals. 0 07/15/2023 Discontinued take 1 tablet by vaibhav th twice daily at mealtime carvedilol (COREG) 25 mg tablet Take 25 mg by mouth twice daily with meals. 0 Active Comment on above: Take 25 mg by mouth twice daily with meals. Take 12.5 mg by mout h twice daily with meals. Take 6.25 mg by mout h two times a day with meals. cholecalciferol 76272 unt oral capsule (1 source) Vitamin D Cholecalciferol (VITAMIN D3) 1.25 MG (73785 UT) CAPS Take 50,000 capsules by mouth Twice a Week Thursday and Thursday 0 Active clopidogrel 75 mg oral tablet (20 sources) [id number] Platelet Inhibitor Start: 01-06-20 End: 05-23-20 24 take 1 tablet by mouth once daily clopidogrel (PLAVIX) 75 mg tablet Indications: Ischemic stroke without residual deficits (HCC) Take 1 tablet by mouth once daily. 90 tablet 1 05/23/2024 Active take 1 tablet by mouth once santos y clopidogrel (PLAVIX) 75 mg tablet Indications: Ischemic stroke without residual deficits (HCC) Take 75 mg by mouth once daily. 0 Active Comment on above: Take 75 mg by mouth once daily. Take 1 tablet by vaibhav once daily. docusate sodium 100 mg oral capsule (1 source) Start: 12-23-2020 docusate sodium (COLACE) capsule 100 mg ELDERBERRY FRUIT (20 sources) take 1000 mg by mouth once daily ELDERBERRY FRUIT ORAL Take 1,000 mg by mouth once daily. Active take 1000 mg by mouth once daily ELDERBERRY FRUIT ORAL Take 1,000 mg by mouth once daily. 0 Active take 1 capsule by mouth once malcolm ly elderberry fruit 350 mg cap Take 1 capsule by mouth once daily. 0 Active Comment on above: Take 1 capsule by mo [facility] once daily. Elderberry preparation (1 source) Start: 023 take 350 mg by mouth once daily elderberry 350 mg, Oral, qDay, 0 Refill(s) Start Date: 05/28/23 Status: Ordered 0.4 ml enoxaparin sodium 100 mg/ml prefilled syringe (1 source) Low Molecular Weight Heparin Start: 021 inject 40 mg by subcutaneous injection once daily 40 mg, Subcutaneous, DAILY, First dose on Thu12/21/20 at 0900 ergocalciferol 1.25 mg oral capsule (20 sources) Provitamin D2 Compound Start: 023 ergocalciferol 50,000 intl units (1.25 mg) oral capsule 8 EA, Take 1 capsule by mouth two times a week., 0 Refill(s) Start Date: 10/20/22 Status: Ordered Start: 05-01-2021 End: 02-02-2024 take 1 capsule by mouth two times weekly ergocalciferol 50,000 unit capsule (VITAMIN D2, DRISDOL) Indications: Vitamin D deficiency Take 1 capsule by mouth two times a week. 24 capsule 3 02/02/2024 Active Comment on above: Take 1 capsule by mo [facility] two times a week. flash glucose scanning reader (FREESTYLE TARA 2 READER) (20 sources) Start: 07-15-2023 flash glucose scanning reader (FREESTYLE TARA 2 READER) Indications: Uncontrolled type 2 diabetes mellitus with hyperglycemia (HCC) 1 Device as directed. Type 2 diabetes uncontrolled, no insulin 1 Each 07/15/2023 Active Start: 07-15-2023 flash glucose scanning reader (FREESTYLE TARA 2 READER) Indications: Uncontrolled type 2 diabetes mellitus with hyperglycemia (HCC) 1 Device as directed. Type 2 diabetes uncontrolled, no insulin 1 Each 0 07/15/2023 Active Start: 03-18-2023 flash glucose scanning reader (FREESTYLE TARA 2 READER) Indications: Uncontrolled type 2 diabetes mellitus with hyperglycemia (HCC) 1 Device as directed. Type 2 diabetes uncontrolled, no insulin 1 Each 0 03/18/2023 Active Comment on above: 1 Device as directed . Type 2 diabetes uncontrolled, no insulin gabapentin 300 mg oral capsule (2 sources) Anti-epileptic Agent Start: 12-25-19 End: 01-03-20 take 1 capsule by mouth three times daily gabapentin (NEURONTIN) 300 MG capsule Take 1 capsule by mouth 3 times daily for 7 days. 90 capsule 3 12/26/2020 01/02/2021 Active glimepiride 2 mg oral tablet (20 sources) Sulfonylurea Start: 03-21-20 End: 09-17-20 take 1 tablet by mouth twice daily at mealtime glimepiride (AMARYL) 2 mg tablet Indications: Uncontrolled type 2 diabetes mellitus with hyperglycemia (HCC) Take 1 tablet by mouth two times a day with meals. 180 tablet 1 03/21/2024 09/17/2024 Active Start: 12-24-2022 End: 03-18-2023 take 1 tablet by mouth twice daily at mealtime glimepiride (AMARYL) 1 mg tablet Take 1 tablet by mouth twice daily with meals. 60 tablet 1 12/24/2022 03/18/2023 Discontinued Start: 09-10-2022 End: 01-11-2024 take 1 tablet by mouth twice daily at mealtime glimepiride (AMARYL) 2 mg tablet Indications: Uncontrolled type 2 diabetes mellitus with hyperglycemia (HCC) Take 1 tablet by mouth two times a day with meals. 180 tablet 1 07/15/2023 12/09/2023 Discontinued Start: 11-21-2021 take 1 tablet by vaibhav th once daily at breakfast glimepiride (AMARYL) 2 mg tablet Indications: Uncontrolled type 2 diabetes mellitus with hyperglycemia (HCC) Take 1 tablet by mouth daily with breakfast. 0 11/21/2021 Active Start: 12-22-2020 glimepiride (A MARYL) tablet 2 mg Comment on above: Take 1 tablet by vaibhav th daily with breakfast. Take 1 tablet by vaibhav th twice daily with meals. Take 1 tablet by vaibhav th two times a day with meals. glucagon (rdna) 1 mg injection (1 source) Antihypoglycemic Agent Start: 12-21-2020 glucagon (rDNA) injection 1 mg 1000 ml glucose 500 mg/ml injection (3 sources) Start: 12-21-2020 glucose (GLUTOSE) 40 % oral gel 15 g Start: 12-21-2020 dextrose 50 % IV solution Start: 12-21-2020 dextrose 5 % s olution 1 ml hydrALAZINE hydrochloride 20 mg/ml injection (2 sources) Arteriolar Vasodilator Start: 12-23-2020 hydrALAZINE (APRESOLINE) injection 10 mg Start: 12-21-2020 End: 12-21-2020 hydrALAZINE (APRESOLINE) inj ection 5 mg 3 ml insulin glargine 100 unt/ml pen injector (14 sources) Insulin Analog Start: 06-14-2024 insulin glargi ne (LANTUS SOLOSTAR U-100 INSULIN) 100 unit/mL (3 mL) Indications: Uncontrolled type 2 diabetes mellitus with hyperglycemia (HCC) Inject 16 Units subcutaneously daily at bedtime. 27 mL 3 06/14/2024 Active Start: 05-23-2024 End: 06-14-2024 insulin glargine (LANTUS PARAM OSTAR U-100 INSULIN) 100 unit/mL (3 mL) Indications: Uncontrolled type 2 diabetes mellitus with hyperglycemia (HCC) Inject 14 Units subcutaneously daily at bedtime. 27 mL 3 05/23/2024 06/14/2024 Discontinued Start: 03-21-2024 inject 10 [IU] by martinez bcutaneous injection once daily at bedtime insulin glargine (LANTUS SOLOSTAR U-100 INSULIN) 100 unit/mL (3 mL) Indications: Uncontrolled type 2 diabetes mellitus with hyperglycemia (HCC) Inject 10 Units subcutaneously daily at bedtime. 27 mL 3 03/21/2024 Active magnesium hydroxide 80 mg/ml oral suspension (1 source) Start: 12-23-2020 magnesium hydroxide (MILK OF MAGNESIA) 400 MG/5ML suspension 30 mL 2 ml metoclopramide 5 mg/ml prefilled syringe (1 source) Dopamine-2 Receptor Antagonist Start: 12-24-2020 metoclopramide (REGLAN) injection 10 mg metroNIDAZOLE 500 mg oral tablet (3 sources) Nitroimidazole Antimicrobial Start: 01-03-2024 End: 01-10-2024 take 1 tablet by mouth twice daily metroNIDAZOLE (FLAGYL) 500 mg tablet Indications: BV (bacterial vaginosis) Take 1 tablet by mouth two times a day for 7 days. 14 tablet 0 01/03/2024 01/10/2024 Active Comment on above: Take 1 tablet by vaibhav th two times a day for 7 days. 1 ml morphine sulfate 4 mg/ml injection (1 source) Opioid Agonist Start: 12-21-2020 take 2 mg by mouth every four hours as needed for pain 2 mg, Intravenous, EVERY 4 HOURS PRN, Pain Severe (7-10), Starting Thu12/21/20 at 0329 If oral and IV narcotics ordered, use oral first and only use IV if oral is ineffective or cannot take oral. Do Not give oral and IV within 1 hour of each other unless specifically ordered. ondansetron 4 mg disintegrating oral tablet (20 sources) Serotonin-3 Receptor Antagonist Start: 03-18-2023 take 1 tablet by mouth every eight hours as needed for nausea ondansetron orally disintegrating (ZOFRAN ODT) 4 mg disintegrating tablet Indications: Uncontrolled type 2 diabetes mellitus with hyperglycemia (HCC) Take 1 tablet by mouth every 8 hours as needed for nausea/vomiting. 20 tablet 1 03/18/2023 Active Comment on above: Take 1 tablet by vaibhav every 8 hours as needed for nausea/vomiting. oxyCODONE hydrochloride 5 mg oral tablet (1 source) Opioid Agonist Start: 12-21-2020 take 5 mg by mouth every four hours as needed for pain 5 mg, Oral, EVERY 4 HOURS PRN, Pain Moderate (4-6), Starting Thu12/21/20 at 0329 pantoprazole 40 mg delayed release oral tablet (8 sources) Proton Pump Inhibitor Start: 06-17-2024 take 1 tablet by mouth once daily pantoprazole DR (PROTONIX) 40 mg tablet Take 1 tablet by mouth once daily. 30 tablet 2 06/17/2024 Active Start: 03-21-2024 End: 05-10-2024 take 1 tablet by mouth once daily before breakfast pantoprazole DR (PROTONIX) 40 mg tablet Take 1 tablet by mouth daily before breakfast. Take on empty stomach, 1/2 hr before meal. 90 tablet 0 03/21/2024 05/10/2024 Discontinued (Course of therapy completed) perflutren lipid microspheres 1.3 mL in NaCl (PF) 0.9% 10 mL injection (DEFINITY) (20 sources) Start: 02-19-2022 End: 05-21-2023 perflutren lipid microspheres 1.3 mL in NaCl (PF) 0.9% 10 mL injection (DEFINITY) polyethylene glycol 3350 13109 mg powder for oral solution (1 source) Osmotic Laxative Start: 12-21-2020 17 g, Oral, D AILY PRN, Constipation, Starting Thu12/21/20 at 0328 First line therapy for constipation Promethazine (1 source) Phenothiazine Start: 12-21-2020 promethazine ( PHENERGAN) tablet 12.5 mg Ozempic (7 sources) Start: 05-28-2023 Ozempic Subcut aneous, 0 Refill(s) Start Date: 05/28/23 Status: Ordered Start: 01-12-2023 End: 03-18-2023 semaglutide (OZEMPIC) 0.25 m g or 0.5 mg(2 mg/1.5 mL) pen Indications: Uncontrolled type 2 diabetes mellitus with hyperglycemia (HCC) Inject 0.5 mg subcutaneously one time a week. 2 mL 2 01/12/2023 03/18/2023 Discontinued Start: 12-10-2022 semaglutide (O ZEMPIC) 0.25 mg or 0.5 mg(2 mg/1.5 mL) pen Indications: Uncontrolled type 2 diabetes mellitus with hyperglycemia (HCC) Inject 0.25 mg subcutaneously one time a week. 1.5 mL 2 12/10/2022 Active Comment on above: Inject 0.25 mg subcu taneously one time a week. Inject 0.5 mg subcut aneously one time a week. SITagliptin 100 mg oral tablet (13 sources) Dipeptidyl Peptidase 4 Inhibitor Start: 03-21-20 take 1 tablet by mouth once daily SITagliptin phosphate (JANUVIA) 100 mg tablet Indications: Uncontrolled type 2 diabetes mellitus with hyperglycemia (HCC) Take 1 tablet by mouth once daily. 90 tablet 1 03/21/2024 Active 125 ml sodium chloride 9 mg/ml prefilled syringe (20 sources) Start: 02-20-20 End: 05-21-20 sodium chloride 0.9 % (flush) 10 mL (BD POSIFLUSH) Start: 12-21-2020 10 mL, Intrave nous, EVERY 12 HOURS SCHEDULED (2 times per day), First dose on Thu12/21/20 at 0900 Start: 12-21-2020 take 10 mL intraveno us route once as needed 10 mL, Intravenous, PRN, Line Care, After every IV line use, Starting Thu12/21/20 at 0328 thyroid (ARMOUR) tablet 240 mg (1 source) Start: 12-22-2020 thyroid (ARMOU R) tablet 240 mg thyroid (fpc) 30 mg oral tablet (20 sources) Start: 06-15-2024 take 1 tablet by mouth once in the morning ARMOUR THYROID 30 mg tablet Indications: Acquired hypothyroidism Take 1 tablet by mouth every Thursday, Thursday, and Thursday. In the morning. (Take this is addition to the 120 mg armor thyroid) 36 tablet 1 06/15/2024 Active Start: 10-20-2022 take 2 tablets by mo uth every week Oblong Thyroid 120 mg oral tablet 32 EA, Take one tablet by mouth every morning daily 6 days per week, then take two tablets 1 day per week., 0 Refill(s) Start Date: 10/20/22 Status: Ordered Start: 12-05-2021 End: 01-06-2024 take 1 tablet by mouth once daily in the morning ARMOUR THYROID 120 mg tablet Indications: Acquired hypothyroidism Take 1 tablet PO daily in AM 90 tablet 1 01/06/2024 Active Start: 12-28-2020 End: 12-28-2020 take 2 tablets by mouth once daily thyroid (ARMOUR) 60 MG tablet Take 2 tablets by mouth daily On Wednesdays and Saturdays, take 240 mg 30 tablet 3 12/28/2020 Active Comment on above: Take 1 tablet PO malcolm ly in AM 6x/week. Take 2 tablets 1x/week. Take 1 tablet PO malcolm ly in AM traMADol hydrochloride 50 mg oral tablet (1 source) Opioid Agonist Start: 05-25-2024 End: 06-02-2024 take 1 tablet by mouth every eight hours as needed for pain traMADol (ULTRAM) 50 mg tablet Indications: LLQ pain Take 1 tablet by mouth every 8 hours as needed for pain for up to 8 days. 24 tablet 05/25/2024 06/02/2024 Active Vitamin B12 1000 mcg oral tablet (1 source) Start: 05-28-2023 Vitamin B12 1000 mcg oral tablet Dose : 1,000 mcg = 1 tab(s), Oral, Daily, 0 Refill(s) Start Date: 05/28/23 Status: Ordered Completed/Discontinued Medications Medication Drug Class(es) Dates Sig (Normalized) Sig (Original) bisacodyl 10 mg rectal suppository (2 sources) Stimulant Laxative Start: 12-26-2020 End: 12-26-2020 bisacodyl (DULCOLAX) suppository 10 mg Start: 12-25-2020 bisacodyl (DUL COLAX) EC tablet 10 mg Blood Pressure Monitor (BLOOD PRESSURE KIT) kit (2 sources) Start: 05-25-2019 Blood Pressure Monitor (BLOOD PRESSURE KIT) kit Indications: Essential hypertension, benign 1 Device as directed. Dx: essential hypertension 1 Kit 0 05/25/2019 Active Comment on above: 1 Device as directed . Dx: essential hypertension calcium chloride 0.0014 meq/ml / potassium chloride 0.004 meq/ml / sodium chloride 0.103 meq/ml / sodium lactate 0.028 meq/ml injectable solution (1 source) Start: 12-21-2020 End: 12-23-2020 lactated ringers infusion ceFAZolin 2000 mg injection (1 source) Cephalosporin Antibacterial Start: 12-21-2020 End: 12-24-2020 2,000 mg, Intravenous, EVERY 8 HOURS, First dose on Thu12/21/20 at 2300, Until Discontinued Until drain is removed cyanocobalamin, vitamin B-12, 3,000 mcg cap (14 sources) Start: 11-21-2021 End: 05-07-2022 take 1 capsule by mouth once daily cyanocobalamin, vitamin B-12, 3,000 mcg cap Indications: Vitamin B12 deficiency Take 3,000 mcg by mouth once daily. 30 capsule 3 11/21/2021 05/07/2022 Discontinued Start: 11-21-2021 take 1 capsule by [facility] once daily cyanocobalamin, vitamin B-12, 3,000 mcg cap Indications: Vitamin B12 deficiency Take 3,000 mcg by mouth once daily. 30 capsule 3 11/21/2021 Active Comment on above: Take 3,000 mcg by [facility] once daily. cyclobenzaprine hydrochloride 10 mg oral tablet (6 sources) Muscle Relaxant Start: End: take 1 tablet by mouth three times daily as needed for pain cyclobenzaprine (FLEXERIL) 10 mg tablet Indications: Acute bilateral low back pain with right-sided sciatica Take 1 tablet by mouth three times daily as needed for Muscle Spasm or Pain. 30 tablet 0 12/03/2020 01/31/2022 Discontinued Comment on above: Take 1 tablet [address] [facility] three times daily as needed for Muscle Spasm or Pain. 1 ml dexamethasone phosphate 4 mg/ml injection (2 sources) Corticosteroid Start: End: 6 mg, Intravenous, EVERY 6 HOURS, First dose (after last modification) on Thu12/22/20 at 0200, For 24 hours Start: 12-21-2020 End: 12-21-2020 4 mg, Intravenous, EVERY 8 H OURS, First dose on Thu12/21/20 at 0400 empagliflozin 10 mg oral tablet (9 sources) Sodium-Glucose Cotransporter 2 Inhibitor Start: 12-09-2023 End: 01-27-2024 take 1 tablet by mouth once daily at breakfast, then take 1 tablet by mouth once daily in the morning empagliflozin (JARDIANCE) 10 mg tablet Indications: Uncontrolled type 2 diabetes mellitus with hyperglycemia (HCC) Take 1 tablet by mouth daily with breakfast. Take 1 tablet once daily in the morning 90 tablet 1 12/09/2023 01/27/2024 Discontinued Comment on above: Take 1 tablet by vaibhav th daily with breakfast. Take 1 tablet once daily in the morning flash glucose sensor (FREESTYLE TARA 2 SENSOR) kit (1 source) Start: 03-18-2023 flash glucose sensor (FREESTYLE TARA 2 SENSOR) kit Indications: Uncontrolled type 2 diabetes mellitus with hyperglycemia (HCC) 1 Each as directed. 6 Each 2 03/18/2023 Active Comment on above: 1 Each as directed. fluconazole 150 mg oral tablet (4 sources) Azole Antifungal Start: 01-27-2024 End: 01-27-2024 fluconazole (DIFLUCAN) 150 mg tablet Indications: Uncontrolled type 2 diabetes mellitus with hyperglycemia (HCC) , Vaginal yeast infection Take 1 tablet by mouth one time only for 1 dose. Repeat in 3 days as needed. 2 tablet 0 01/27/2024 01/27/2024 Start: 01-13-2024 End: 01-13-2024 fluconazole (DIFLUCAN) 150 m g tablet Take 1 tablet by mouth one time only for 1 dose. Repeat in 3 days as needed. 2 tablet 0 01/13/2024 01/13/2024 Start: 01-02-2024 End: 01-03-2024 take 1 tablet by mouth once daily fluconazole (DIFLUCAN) 150 mg tablet Take 1 tablet by mouth once daily for 1 day. 1 tablet 0 01/02/2024 01/03/2024 Active Comment on above: Take 1 tablet by vaibhav th once daily for 1 day. Take 1 tablet by vaibhav th one time only for 1 dose. Repeat in 3 days as needed. 1 ml HYDROmorphone hydrochloride 1 mg/ml cartridge (1 source) Opioid Agonist Start: 12-21-2020 End: 12-21-2020 HYDROmorphone (DILAUDID) injection 0.5 mg insulin lispro 100 unt/ml injectable solution (4 sources) Insulin Analog Start: 12-28-2020 End: 12-28-2020 insulin lispro (HUMALOG) injection vial 10 Units Start: 12-21-2020 End: 12-21-2020 insulin lispro (HUMALOG) inj ection vial 3 Units Start: 12-21-2020 End: 12-24-2020 insulin lispro (HUMALOG) inj ection vial 0-6 Units losartan potassium 50 mg oral tablet (5 sources) Angiotensin 2 Receptor Kari Start: 11-13-2023 End: 05-11-2024 take 1 tablet by mouth once daily losartan (COZAAR) 50 mg tablet Indications: Essential hypertension, benign Take 1 tablet by mouth once daily. 90 tablet 1 11/13/2023 11/19/2023 Discontinued Start: 10-29-2023 End: 11-13-2023 take 1 tablet by mouth once daily losartan (COZAAR) 25 mg tablet Indications: Essential hypertension, benign Take 1 tablet by mouth once daily. 25 tablet 0 10/29/2023 11/13/2023 Discontinued Comment on above: Take 1 tablet by vaibhav once daily. magnesium citrate 58.2 mg/ml oral solution (1 source) Start: 12-25-2020 End: 12-25-2020 magnesium citrate solution 296 mL 0.6 ml methylnaltrexone bromide 20 mg/ml prefilled syringe (2 sources) Opioid Antagonist Start: 12-25-2020 End: 12-25-2020 methylnaltrexone (RELISTOR) injection 12 mg Start: 12-23-2020 End: 12-23-2020 methylnaltrexone (RELISTOR) injection 12 mg 24 hr metoprolol succinate 50 mg extended release oral tablet (20 sources) beta-Adrenergic Kari Start: 02-19-2022 End: 06-19-2023 take 1 tablet by mouth once daily metoprolol succinate ER (TOPROL XL) 50 mg 24 hr tablet Indications: Essential hypertension, benign Take 1 tablet by mouth once daily. 90 tablet 1 08/27/2022 06/19/2023 Discontinued Start: 05-01-2021 End: 02-19-2022 take 1 tablet by mouth once daily metoprolol succinate ER (TOPROL XL) 25 mg 24 hr tablet Indications: Essential hypertension, benign Take 1 tablet by mouth once daily. 90 tablet 3 05/01/2021 02/19/2022 Discontinued Start: 12-21-2020 take 25 mg by mouth once daily 25 mg, Oral, DAILY, First dose on Thu12/21/20 at 0900 Do not crush or chew. Comment on above: Take 1 tablet by vaibhav once daily. nystatin 100 unt/mg / triamcinolone acetonide 0.001 mg/mg topical ointment (4 sources) Polyene Antifungal, Corticosteroid Start: 2020 End: 2021 nystatin-triamcinolo ne (MYCOLOG) ointment Indications: Yeast infection of the skin Apply sparingly to perineum twice daily for irritation/infection . 30 g 0 04/24/2021 01/31/2022 Discontinued Comment on above: Apply sparingly to p erineum twice daily for irritation/infection. semaglutide (OZEMPIC) 1 mg/dose (4 mg/3 mL) pen (20 sources) Start: 2023 End: 2023 inject 1 mg by subcutaneous injection every week semaglutide (OZEMPIC) 1 mg/dose (4 mg/3 mL) pen Indications: Uncontrolled type 2 diabetes mellitus with hyperglycemia (HCC) Inject 1 mg subcutaneously one time a week. 9 mL 1 01/06/2024 01/27/2024 Discontinued Start: 01-06-2024 End: 04-05-2024 inject 1 mg by subcutaneous injection every week semaglutide (OZEMPIC) 1 mg/dose (4 mg/3 mL) pen Indications: Uncontrolled type 2 diabetes mellitus with hyperglycemia (HCC) Inject 1 mg subcutaneously one time a week. 9 mL 1 01/06/2024 04/05/2024 Active Start: 07-24-2023 End: 01-06-2024 inject 1 mg by subcutaneous injection every week semaglutide (OZEMPIC) 1 mg/dose (4 mg/3 mL) pen Indications: Uncontrolled type 2 diabetes mellitus with hyperglycemia (HCC) Inject 1 mg subcutaneously one time a week. 9 mL 1 07/24/2023 01/06/2024 Discontinued Start: 07-24-2023 inject 1 mg by subcu taneous injection every week semaglutide (OZEMPIC) 1 mg/dose (4 mg/3 mL) pen Indications: Uncontrolled type 2 diabetes mellitus with hyperglycemia (HCC) Inject 1 mg subcutaneously one time a week. 9 mL 1 07/24/2023 Active Start: 07-24-2023 End: 10-22-2023 inject 1 mg by subcutaneous injection every week semaglutide (OZEMPIC) 1 mg/dose (4 mg/3 mL) pen Indications: Uncontrolled type 2 diabetes mellitus with hyperglycemia (HCC) Inject 1 mg subcutaneously one time a week. 9 mL 1 07/24/2023 10/22/2023 Active Start: 06-23-2023 End: 07-15-2023 inject 1 mg by subcutaneous injection every week semaglutide (OZEMPIC) 1 mg/dose (4 mg/3 mL) pen Indications: Uncontrolled type 2 diabetes mellitus with hyperglycemia (HCC) Inject 1 mg subcutaneously one time a week. 4 Each 3 06/23/2023 07/15/2023 Discontinued Start: 06-23-2023 inject 1 mg by subcu taneous injection every week semaglutide (OZEMPIC) 1 mg/dose (4 mg/3 mL) pen Indications: Uncontrolled type 2 diabetes mellitus with hyperglycemia (HCC) Inject 1 mg subcutaneously one time a week. 4 Each 3 06/23/2023 Active Start: 03-06-2023 inject 1 mg by subcu taneous injection every week semaglutide (OZEMPIC) 1 mg/dose (4 mg/3 mL) pen Indications: Uncontrolled type 2 diabetes mellitus with hyperglycemia (HCC) Inject 1 mg subcutaneously one time a week. 4 Each 3 03/06/2023 Active Comment on above: Inject 1 mg subcutan eously one time a week. semaglutide (OZEMPIC) 2 mg/dose (8 mg/3 mL) pen injector (20 sources) Start: End: inject 2 mg by subcutaneous injection every week semaglutide (OZEMPIC) 2 mg/dose (8 mg/3 mL) pen injector Indications: Uncontrolled type 2 diabetes mellitus with hyperglycemia (HCC) , Vaginal yeast infection Inject 2 mg subcutaneously one time a week. 3 mL 2 01/27/2024 03/21/2024 Discontinued Start: 01-27-2024 End: 04-26-2024 inject 2 mg by subcutaneous injection every week semaglutide (OZEMPIC) 2 mg/dose (8 mg/3 mL) pen injector Indications: Uncontrolled type 2 diabetes mellitus with hyperglycemia (HCC) , Vaginal yeast infection Inject 2 mg subcutaneously one time a week. 3 mL 2 01/27/2024 04/26/2024 Active Start: 07-15-2023 End: 12-09-2023 inject 2 mg by subcutaneous injection every week semaglutide (OZEMPIC) 2 mg/dose (8 mg/3 mL) pen injector Indications: Uncontrolled type 2 diabetes mellitus with hyperglycemia (HCC) , Essential hypertension, benign , Renal artery stenosis (HCC) Inject 2 mg subcutaneously one time a week. 3 mL 2 07/15/2023 12/09/2023 Discontinued Start: 07-15-2023 inject 2 mg by subcu taneous injection every week semaglutide (OZEMPIC) 2 mg/dose (8 mg/3 mL) pen injector Indications: Uncontrolled type 2 diabetes mellitus with hyperglycemia (HCC) , Essential hypertension, benign , Renal artery stenosis (HCC) Inject 2 mg subcutaneously one time a week. 3 mL 2 07/15/2023 Active Start: 07-15-2023 End: 10-13-2023 inject 2 mg by subcutaneous injection every week semaglutide (OZEMPIC) 2 mg/dose (8 mg/3 mL) pen injector Indications: Uncontrolled type 2 diabetes mellitus with hyperglycemia (HCC) , Essential hypertension, benign , Renal artery stenosis (HCC) Inject 2 mg subcutaneously one time a week. 3 mL 2 07/15/2023 10/13/2023 Active Comment on above: Inject 2 mg subcutan eously one time a week. spironolactone 25 mg oral tablet (20 sources) Aldosterone Antagonist Start: End: take 1 tablet by mouth at bedtime spironolactone 25 mg oral tablet 28 EA, TAKE 1 TABLET BY MOUTH AT BEDTIME, 0 Refill(s) Start Date: 10/20/22 Status: Ordered Comment on above: Take 25 mg by mouth once daily. vitamin b12 1 mg extended release oral tablet (20 sources) Vitamin B12 Start: 023 Cyanocobalamin 1,000 mcg TbER Indications: Vitamin B12 deficiency 2 tablets daily 180 tablet 1 06/23/2023 Active Start: 05-07-2022 End: 02-02-2023 take 3 tablets by mouth once daily Cyanocobalamin 1,000 mcg TbER Indications: Vitamin B12 deficiency Take 3 tablets by mouth once daily. 90 tablet 3 02/02/2023 Active Comment on above: TAKE 3 TABLETS BY MO UTH EVERY DAY Take 3 tablets by mo uth once daily. 2 tablets daily Problems Active Problems Problem Classification Problem Date Documented Da te Episodic/Chronic Abdominal pain (20 sources) Right upper quadrant pain; Translations: [Right upper quadrant pain] Onset: 02-16-2007 Resolved: 12-08-2022 02-16-2007 Episodic Acute cerebrovascular disease (4 sources) Ischemic stroke without residual deficits; Translations: [Cerebral infarction, unspecified] Chronic Adjustment disorders (20 sources) Adjustment disorder with depressed mood; Translations: [Adjustment disorder with depressed mood] Onset: 07-13-2006 07-13-2006 Chronic Anxiety disorders (20 sources) Anxiety state; Translations: [Generalized anxiety disorder] Onset: 07-13-2006 07-13-2006 Chronic Chronic kidney disease (1 source) Chronic kidney disease, unspecified; Translations: [Anemia of chronic renal failure, unspecified CKD stage] Onset: 05-03-2024 Chronic Chronic kidney disease (1 source) Chronic kidney disease; Translations: [Stage 3 chronic kidney disease, unspecified whether stage 3a or 3b CKD (HCC)] Onset: 05-03-2024 Deficiency and other anemia (1 source) Anemia in chronic kidney disease; Translations: [Anemia of chronic renal failure, unspecified CKD stage] Onset: 05-03-2024 Chronic Deficiency and other anemia (1 source) Iron deficiency anemia; Translations: [Iron deficiency anemia, unspecified] Episodic Diabetes mellitus with complications (20 sources) Type II diabetes mellitus uncontrolled; Translations: [Type 2 diabetes mellitus with hyperglycemia] Onset: 05-21-2020 05-21-2020 Chronic Diabetes mellitus without complication (20 sources) Type 2 diabetes mellitus without complication; Translations: [Type 2 diabetes mellitus without complications] Onset: 07-13-2006 Resolved: 12-08-2022 09-23-2021 Chronic Diabetes mellitus without complication (2 sources) Hyperglycemia; Translations: [Hyperglycemia, unspecified] 06-26-2023 Episodic Disorders of lipid metabolism (20 sources) Dyslipidemia; Translations: [Hyperlipidemia, unspecified] Onset: 10-12-2018 10-12-2018 Chronic Essential hypertension (20 sources) Benign essential hypertension; Translations: [Essential (primary) hypertension] Onset: 07-13-2006 07-13-2006 Chronic Fracture of lower limb (3 sources) Closed fracture of distal left fibula; Translations: [Other fracture of upper and lower end of left fibula, initial encounter for closed fracture] Episodic Genitourinary symptoms and ill-defined conditions (1 source) Dysuria; Translations: [Dysuria] 01-02-2024 Episodic Heart valve disorders (20 sources) Nonrheumatic aortic (valve) stenosis; Translations: [Aortic valve disorders] Onset: 08-28-2019 09-06-2019 Chronic Inflammatory diseases of female pelvic organs (1 source) Bacterial vaginosis; Translations: [Acute vaginitis] 01-03-2024 Episodic Mycoses (1 source) Candidiasis of vagina; Translations: [Vaginal yeast infection] 01-27-2024 Episodic Nausea and vomiting (1 source) Nausea and vomiting; Translations: [Nausea with vomiting, unspecified] 06-26-2023 Episodic Nutritional deficiencies (20 sources) Vitamin D deficiency; Translations: [Vitamin D deficiency, unspecified] Onset: 09-10-2022 Chronic Other circulatory disease (1 source) Disorder of carotid artery 10-21-2022 Chronic Other female genital disorders (1 source) Pruritus of vagina; Translations: [Other specified noninflammatory disorders of vagina] 01-02-2024 Episodic Other gastrointestinal disorders (20 sources) Celiac disease; Translations: [Celiac disease] Onset: 11-06-2009 09-23-2021 Chronic Other nervous system disorders (20 sources) Spinal cord disease; Translations: [Disease of spinal cord, unspecified] Onset: 12-09-2023 12-09-2023 Chronic Other nervous system disorders (1 source) Disease of spinal cord, unspecified; Translations: [Disease of spinal cord (HCC)] Onset: 12-09-2023 Chronic Other non-traumatic joint disorders (2 sources) Acute ankle pain; Translations: [Pain in left ankle and joints of left foot] Episodic Other nutritional; endocrine; and metabolic disorders (14 sources) Obese class I; Translations: [Obesity, unspecified] Onset: 03-23-2024 4 Chronic Other screening for suspected conditions (not mental disorders or infectious disease) (2 sources) Endometrium thickened; Translations: [Abnormal findings on diagnostic imaging of other specified body structures] Onset: 05-25-2024 05-25-2024 Chronic Other screening for suspected conditions (not mental disorders or infectious disease) (3 sources) Patient encounter status; Translations: [Encounter for screening mammogram for malignant neoplasm of breast] Episodic Peripheral and visceral atherosclerosis (20 sources) Renal artery stenosis; Translations: [Atherosclerosis of renal artery] Onset: 12-09-2023 07-15-2023 Chronic Regional enteritis and ulcerative colitis (20 sources) Ulcerative colitis; Translations: [Other ulcerative colitis without complications] Onset: 12-09-2023 10-21-2022 Chronic Residual codes; unclassified (1 source) Difficulty sleeping ; Translations: [Sleep deprivation] 01-27-2024 Episodic Residual codes; unclassified (1 source) Sleep deprivation; Translations: [Poor sleep] Onset: 05-17-2024 Episodic Spondylosis; intervertebral disc disorders; other back problems (2 sources) Prolapsed lumbar intervertebral disc; Translations: [Lumbar disc herniation] Onset: 12-21-2020 12-21-2020 Chronic Substance-related disorders (20 sources) Tobacco user; Translations: [Nicotine dependence, unspecified, uncomplicated] Onset: 10-29-2009 10-29-2009 Chronic Thyroid disorders (20 sources) Hypothyroidism; Translations: [Hypothyroidism, unspecified] Onset: 07-13-2006 11-13-2015 Chronic Past or Other Problems Problem Classification Problem Date Documented Date Episodic/Chronic Cardiac dysrhythmias (20 sources) Palpitations; Translations: [Palpitations] Onset: 02-19-2022 Episodic Fluid and electrolyte disorders (3 sources) Hypokalemia; Translations: [Hypokalemia] Onset: 07-30-2023 07-28-2023 Episodic Malaise and fatigue (20 sources) Fatigue; Translations: [Other fatigue] Onset: 09-07-2017 09-07-2017 Episodic Noninfectious gastroenteritis (2 sources) Gastroenteritis; Translations: [Noninfective gastroenteritis and colitis, unspecified] Onset: 03-21-2024 03-21-2024 Episodic Nutritional deficiencies (20 sources) Cobalamin deficiency; Translations: [Deficiency of other specified B group vitamins] Onset: 09-10-2022 Episodic Other aftercare (1 source) 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; Translations: [Controlled type 2 diabetes mellitus without complication, with long-term current use of insulin (HCC)] Onset: 11-13-2023 Episodic Other connective tissue disease (20 sources) Medial epicondylitis of left humerus; Translations: [Medial epicondylitis, left elbow] Onset: 09-07-2017 09-07-2017 Episodic Screening and history of mental health and substance abuse codes (20 sources) Tobacco use and exposure - finding; Translations: [Personal history of nicotine dependence] Onset: 03-18-2023 Episodic Results Test Name Value Interpretation Reference Range Facil ity Alden 07-20-2024 CNPN Telephone (FAMPWS) TIA BLANCO ([id number]) 1955 F Date Time Provider Department 07/20/24 PREET FARRAR [facility] During your visit today, we recorded the following information about you: Preet Farrar DO 07/20/2024 10:23 PM Signed Please inform patient that her TSH is slightly low/suppressed but her free t4 is back up into a normal range. Her free t3 is going to massively vary since she is on armor thyroid hormone with is at least 75% t3 and only 25% t4 hormone in this tablet DO Zenon Urban Stephanie, RN 07/21/2024 8:19 AM Signed Patient notified of results and provider's instructions. Patient verbalizes understanding. Lisa Aparicio RN Allergies As of Date: 07/20/2024 Noted Allergy Reaction ASA (SALICYLATES) 01/05/2006 4 - Hives 8 - GI Upset Comments: As a child GLUTEN 10/17/2016 5 - Intolerance METFORMIN 8 - GI Upset 9 - Itching PREDNISONE 10/02/2012 9 - Itching SULFA (SULFONAMIDE ANTIBIOTICS) 12/29/2005 2 - Rash Date Reviewed: 06/14/2024 Reviewed by: Karen Mejia LPN - Fully Assessed Prescriptions as of 07/21/2024 - pantoprazole DR (PROTONIX) 40 mg tablet Take 1 tablet by mouth once daily. - Insulin Witt, Disposable, (BD ULTRA-FINE MARIA T PEN NEEDLE) 32 gauge x 532 Use one needle for each dose. 1/day. - ARMOUR THYROID 30 mg tablet Take 1 tablet by mouth every Thursday, Thursday, and Thursday. In the morning. (Take this is addition to the 120 mg armor thyroid) - insulin glargine (LANTUS SOLOSTAR U-100 INSULIN) 100 unit/mL (3 mL) Inject 16 Units subcutaneously daily at bedtime. - atorvastatin (LIPITOR) 80 mg tablet Take 1 tablet by mouth once daily. - clopidogrel (PLAVIX) 75 mg tablet Take 1 tablet by mouth once daily. - glimepiride (AMARYL) 2 mg tablet Take 1 tablet by mouth two times a day with meals. - SITagliptin phosphate (JANUVIA) 100 mg tablet Take 1 tablet by mouth once daily. - carvedilol (COREG) 6.25 mg tablet Take 1 tablet by mouth two times a day with meals. - ergocalciferol 50,000 unit capsule (VITAMIN D2, DRISDOL) Take 1 capsule by mouth two times a week. - ARMOUR THYROID 120 mg tablet Take 1 tablet PO daily in AM - blood sugar diagnostic (BLOOD GLUCOSE TEST) test strip Test blood sugar(s) 2 times daily. Dx: Type 2 DM - Uncontrolled E11.65 Insulin: No - spironolactone (ALDACTONE) 25 mg tablet Take 25 mg by mouth once daily. - flash glucose scanning reader (FREESTYLE TARA 2 READER) 1 Device as directed. Type 2 diabetes uncontrolled, no insulin - blood sugar diagnostic (FREESTYLE LITE STRIPS) test strip Test blood sugar(s) 8 times daily. Dx: E11.65. Insulin: No - ELDERBERRY FRUIT ORAL Take 1,000 mg by mouth once daily. - ondansetron orally disintegrating (ZOFRAN ODT) 4 mg disintegrating tablet Take 1 tablet by mouth every 8 hours as needed for nausea/vomiting. - Blood Pressure Monitor (BLOOD PRESSURE KIT) 1 Each as directed. Dx: essential hypertension - Lancets lancets Test blood sugar(s) 2 times daily. Dx: Type 2 DM - Uncontrolled E11.65 Insulin: No Problem List As Of Date 07/20/2024 Noted Resolved Diabetes mellitus type 2, controlled, without c*07/13/2006 12/08/2022 BENIGN HYPERTENSION [I10] 07/13/2006 ADJUSTMENT DISORDER WITH DEPRESSED MOOD [F43.21]07/13/2006 ANXIETY STATE NOS [F41.1] 07/13/2006 Hypothyroidism [E03.9] 07/13/2006 Abdominal pain, right upper quadrant [R10.11] 02/16/2007 12/08/2022 Tobacco Use Disorder [F17.200] 10/29/2009 Celiac disease [K90.0] 11/06/2009 Fatigue [R53.83] 09/07/2017 Medial epicondylitis, left [M77.02] 09/07/2017 Controlled type 2 diabetes mellitus without com*10/12/2018 12/08/2022 Situational anxiety [F41.8] 10/12/2018 Dyslipidemia [E78.5] 10/12/2018 Aortic stenosis, moderate [I35.0] 08/2019 Uncontrolled type 2 diabetes mellitus with hype*05/21/2020 Palpitations [R00.2] 02/19/2022 Uncontrolled hypertension [I10] 02/19/2022 Vitamin B12 deficiency [E53.8] 09/10/2022 Vitamin D deficiency [E55.9] 09/10/2022 History of tobacco abuse [Z87.891] 03/18/2023 Disease of spinal cord (HCC) [G95.9] 12/09/2023 Renal artery stenosis (HCC) [I70.1] 12/09/2023 Other ulcerative colitis without complications *12/09/2023 Diabetes mellitus (HCC) [E11.9] 12/09/2023 Hyperlipidemia, mixed [E78.2] 12/09/2023 Nonrheumatic aortic valve stenosis [I35.0] 12/09/2023 Obesity, Class I, BMI 30-34.9 [E66.811] 03/23/2024 Encounter Status:Closed by LISA APARICIO on 07/21/24 [facility] BLANCO ([id number]) 1955 F Date Time Provider Department 07/19/24 PREET FARRAR During your visit today, we recorded the following information about you: Mavis Canada RN 07/19/2024 11:34 AM Signed Lali with [facility] called in and reports she had faxed over the surgical clearance form on 07/15/24. I let them know it wasn't charted that they had received it, so she is going to send it again. Pt is going to have a DNC on 07/26/24, please fill out and fax back. Faxed recent thyroid labs and labs from April to [phone]. Let them know the other recent labs were external, and they would have to get them from [facility]. Karen Mejia LPN 07/19/2024 4:31 PM S[address] Form on Dr. Farrar's desk Chelo Prasad RN 07/25/2024 10:49 AM Signed Lali at [facility] called again regarding this pt. Pt is to have procedure tomorrow and they are asking if Dr. Farrar's office received surgical clearance forms last week-they are in need of them being completed. Asking if someone can call them today with an update on the forms. Call Lali at [phone]. OLVIN Mujica Susan LPN 07/25/2024 10:55 AM Signed Forms faxed as below. Allergies As of Date: 07/19/2024 Noted Allergy Reaction ASA (SALICYLATES) 01/05/2006 4 - Hives 8 - GI Upset Comments: As a child GLUTEN 10/17/2016 5 - Intolerance METFORMIN 8 - GI Upset 9 - Itching PREDNISONE 10/02/2012 9 - Itching SULFA (SULFONAMIDE ANTIBIOTICS) 12/29/2005 2 - Rash Date Reviewed: 06/14/2024 Reviewed by: Karen Mejia LPN - Fully Assessed Reason for Visit: Faxed Labs [Other] Surgical Clearance Forms [Other] Prescriptions as of 07/25/2024 - pantoprazole DR (PROTONIX) 40 mg tablet Take 1 tablet by mouth once daily. - Insulin Witt, Disposable, (BD ULTRA-FINE MARIA T PEN NEEDLE) 32 gauge x Use one needle for each dose. 1/day. - ARMOUR THYROID 30 mg tablet Take 1 tablet by mouth every Thursday, Thursday, and Thursday. In the morning. (Take this is addition to the 120 mg armor thyroid) - insulin glargine (LANTUS SOLOSTAR U-100 INSULIN) 100 unit/mL (3 mL) Inject 16 Units subcutaneously daily at bedtime. - atorvastatin (LIPITOR) 80 mg tablet Take 1 tablet by mouth once daily. - clopidogrel (PLAVIX) 75 mg tablet Take 1 tablet by mouth once daily. - glimepiride (AMARYL) 2 mg tablet Take 1 tablet by mouth two times a day with meals. - SITagliptin phosphate (JANUVIA) 100 mg tablet Take 1 tablet by mouth once daily. - carvedilol (COREG) 6.25 mg tablet Take 1 tablet by mouth two times a day with meals. - ergocalciferol 50,000 unit capsule (VITAMIN D2, DRISDOL) Take 1 capsule by mouth two times a week. - ARMOUR THYROID 120 mg tablet Take 1 tablet PO daily in AM - blood sugar diagnostic (BLOOD GLUCOSE TEST) test strip Test blood sugar(s) 2 times daily. Dx: Type 2 DM - Uncontrolled E11.65 Insulin: No - spironolactone (ALDACTONE) 25 mg tablet Take 25 mg by mouth once daily. - flash glucose scanning reader (FREESTYLE TARA 2 READER) 1 Device as directed. Type 2 diabetes uncontrolled, no insulin - blood sugar diagnostic (FREESTYLE LITE STRIPS) test strip Test blood sugar(s) 8 times daily. Dx: E11.65. Insulin: No - ELDERBERRY FRUIT ORAL Take 1,000 mg by mouth once daily. - ondansetron orally disintegrating (ZOFRAN ODT) 4 mg disintegrating tablet Take 1 tablet by mouth every 8 hours as needed for nausea/vomiting. - Blood Pressure Monitor (BLOOD PRESSURE KIT) 1 Each as directed. Dx: essential hypertension - Lancets lancets Test blood sugar(s) 2 times daily. Dx: Type 2 DM - Uncontrolled E11.65 Insulin: No Problem List As Of Date 07/19/2024 Noted Resolved Diabetes mellitus type 2, controlled, without c*07/13/2006 12/08/2022 BENIGN HYPERTENSION [I10] 07/13/2006 ADJUSTMENT DISORDER WITH DEPRESSED MOOD [F43.21]07/13/2006 ANXIETY STATE NOS [F41.1] 07/13/2006 Hypothyroidism [E03.9] 07/13/2006 Abdominal pain, right upper quadrant [R10.11] 02/16/2007 12/08/2022 Tobacco Use Disorder [F17.200] 10/29/2009 Celiac disease [K90.0] 11/06/2009 Fatigue [R53.83] 09/07/2017 Medial epicondylitis, left [M77.02] 09/07/2017 Controlled type 2 diabetes mellitus without com*10/12/2018 12/08/2022 Situational anxiety [F41.8] 10/12/2018 Dyslipidemia [E78.5] 10/12/2018 Aortic stenosis, moderate [I35.0] 08/2019 Uncontrolled type 2 diabetes mellitus with hype*05/21/2020 Palpitations [R00.2] 02/19/2022 Uncontrolled hypertension [I10] 02/19/2022 Vitamin B12 deficiency [E53.8] 09/10/2022 Vitamin D deficiency [E55.9] 09/10/2022 History of tobacco abuse [Z87.891] 03/18/2023 Disease of spinal cord (HCC) [G95.9] 12/09/2023 Renal artery stenosis (HCC) [I70.1] 12/09/2023 Other ulcerative colitis without complications *12/09/2023 Diabetes mellit (more content not included)... Normal [facility] Alden 07-15-2024 DEREKN Telephone (FAMPWS) TIA BLANCO ([id number]) 1955 F Date Time Provider Department 07/15/24 PREET FARRAR During your visit today, we recorded the following information about you: Karen Mejia LPN 07/15/2024 10:57 AM Signed Blood Sugar results brought in by patient.Placed on Dr. Farrar desk. Lisa Aparicio, OLVIN 07/21/2024 8:23 AM Signed Patient calls back in. Patient is concerned about her blood sugars being elevated. Patient's fasting blood sugar today was 196. Patient states that she does not eat a lot of carbs. Patient eats gluten free bread in am which is 16.5 grams of carbs. Patient states that she eats mostly protein. Patient takes 16 units of Lantus at HS, Januvia 100 mg, and glimepiride 2 mg. Patient is having DNC done on 07/26/2024. [facility] had faxed over surgical clearance form on 07/19/2024. This is on provider's desk. Patient is very worried about her blood sugars. Preet Farrar DO 07/23/2024 11:33 AM Signed Does she need a refresher for nutrition or diabetes education? Increase lantus to 18 units once a day SQ DO Prabhjot Urban Susan LPN 07/25/2024 10:01 AM Signed Pt. increased Amaryl to 3 mg. didn't feel it was working. Pt. feels it has been a few points lower around 150's to 160's Preet Farrar DO 07/25/2024 4:35 PM Signed Noted, would still recommend increased dose of lantus as below DO Jason Urban Kathryn, MA 07/25/2024 4:56 PM Signed Pt notified. Adelita Gomez MA Allergies As of Date: 07/15/2024 Noted Allergy Reaction ASA (SALICYLATES) 01/05/2006 4 - Hives 8 - GI Upset Comments: As a child GLUTEN 10/17/2016 5 - Intolerance METFORMIN 8 - GI Upset 9 - Itching PREDNISONE 10/02/2012 9 - Itching SULFA (SULFONAMIDE ANTIBIOTICS) 12/29/2005 2 - Rash Date Reviewed: 06/14/2024 Reviewed by: Karen Mejia LPN - Fully Assessed Reason for Visit: Results [95] Prescriptions as of 07/25/2024 - pantoprazole DR (PROTONIX) 40 mg tablet Take 1 tablet by mouth once daily. - Insulin Witt, Disposable, (BD ULTRA-FINE MARIA T PEN NEEDLE) 32 gauge x Use one needle for each dose. 1/day. - ARMOUR THYROID 30 mg tablet Take 1 tablet by mouth every Thursday, Thursday, and Thursday. In the morning. (Take this is addition to the 120 mg armor thyroid) - insulin glargine (LANTUS SOLOSTAR U-100 INSULIN) 100 unit/mL (3 mL) Inject 16 Units subcutaneously daily at bedtime. - atorvastatin (LIPITOR) 80 mg tablet Take 1 tablet by mouth once daily. - clopidogrel (PLAVIX) 75 mg tablet Take 1 tablet by mouth once daily. - glimepiride (AMARYL) 2 mg tablet Take 1 tablet by mouth two times a day with meals. - SITagliptin phosphate (JANUVIA) 100 mg tablet Take 1 tablet by mouth once daily. - carvedilol (COREG) 6.25 mg tablet Take 1 tablet by mouth two times a day with meals. - ergocalciferol 50,000 unit capsule (VITAMIN D2, DRISDOL) Take 1 capsule by mouth two times a week. - ARMOUR THYROID 120 mg tablet Take 1 tablet PO daily in AM - blood sugar diagnostic (BLOOD GLUCOSE TEST) test strip Test blood sugar(s) 2 times daily. Dx: Type 2 DM - Uncontrolled E11.65 Insulin: No - spironolactone (ALDACTONE) 25 mg tablet Take 25 mg by mouth once daily. - flash glucose scanning reader (FREESTYLE TARA 2 READER) 1 Device as directed. Type 2 diabetes uncontrolled, no insulin - blood sugar diagnostic (FREESTYLE LITE STRIPS) test strip Test blood sugar(s) 8 times daily. Dx: E11.65. Insulin: No - ELDERBERRY FRUIT ORAL Take 1,000 mg by mouth once daily. - ondansetron orally disintegrating (ZOFRAN ODT) 4 mg disintegrating tablet Take 1 tablet by mouth every 8 hours as needed for nausea/vomiting. - Blood Pressure Monitor (BLOOD PRESSURE KIT) 1 Each as directed. Dx: essential hypertension - Lancets lancets Test blood sugar(s) 2 times daily. Dx: Type 2 DM - Uncontrolled E11.65 Insulin: No Problem List As Of Date 07/15/2024 Noted Resolved Diabetes mellitus type 2, controlled, without c*07/13/2006 12/08/2022 BENIGN HYPERTENSION [I10] 07/13/2006 ADJUSTMENT DISORDER WITH DEPRESSED MOOD [F43.21]07/13/2006 ANXIETY STATE NOS [F41.1] 07/13/2006 Hypothyroidism [E03.9] 07/13/2006 Abdominal pain, right upper quadrant [R10.11] 02/16/2007 12/08/2022 Tobacco Use Disorder [F17.200] 10/29/2009 Celiac disease [K90.0] 11/06/2009 Fatigue [R53.83] 09/07/2017 Medial epicondylitis, left [M77.02] 09/07/2017 Controlled type 2 diabetes mellitus without com*10/12/2018 12/08/2022 Situational anxiety [F41.8] 10/12/2018 Dyslipidemia [E78.5] 10/12/2018 Aortic stenosis, moderate [I35.0] 08/2019 Uncontrolled type 2 diabetes mellitus with hype*05/21/2020 Palpitations [R00.2] 02/19/2022 Uncontrolled hypertension [I10] 02/19/2022 Vitamin B12 deficiency [E53.8] 09/10/2022 Vitamin D deficiency [E55.9] 09/10 (more content not included)... Normal [facility] Free T3 [Mass/Vol] 5.0 pg/mL High 2.3-4.1 [facility] Comment on above: Order Comment: Speci men Type: BLOOD SPECIMENOrdering Facility: [facility] Address: [address] [place] [address] Performed By: #### 3 016-3, 3051-0, 3024-7 ####[facility] LABCLIA [id number] [place] [address] [place] T4 Free SerPl-mCncon 024 Free T4 [Mass/Vol] 0.9 ng/dL Normal 0.9-1.7 [facility] Comment on above: Order Comment: Speci men Type: BLOOD SPECIMENOrdering Facility: [facility] Address: [address] [place] [address] Performed By: #### 3 016-3, 3051-0, 3024-7 ####[facility] LABIA [id number] [address] [place] TSH SerPl-aCncon 07-15-2024 TSH Qn 0.218 m[IU]/L Low 0.270-4.200 [facility] Comment on above: Order Comment: Speci emily Type: BLOOD SPECIMENOrdering Facility: [facility] Address: [address] [place] [address] Performed By: #### 3 016-3, 3051-0, 3024-7 ####[facility] LABIA [id number] [address] [place] CNOVon 06-14-2024 CNOV Office Visit (FAMPWS) TIA BLANCO ([id number]) 1955 F Date Time Provider Department 06/14/24 2:20 PM PREET FARRAR FAMPWS During your visit today, we recorded the following information about you: Temperature Pulse Respiration Blood pressure 98 degrees 76/minute 16/minute 136/70 Weight 78 kg Preet Farrar, 06/14/2024 4:37 PM Signed Patient presents with: F/U 3 Month HPI: Tia Blanco is a 68 year old female who presents to the office today for review of health conditions. Concerns today: 90 day glucose average is 163 30 day glucose average Has cut back on her glucose rich foods such as starches and fruits and simple carbs such as potatoes and breads Recently incidentally found to have a thickened endometrial lining. Has been seen by [facility] and had EMB and will be having a consult with Dr. Froylan Farnsworth [facility] on 07/07 to potentially schedule MEREDITH. She states that she wants to change her insulin needle rx since this is causing her bruising Ms. Blanco has past history of diabetes. Since our last visit she denies excessive thirst or increased frequency of urination, chest pain or dyspnea , new or unusual visual symptoms, and low sugar/hypoglycemic reactions. Depression- no. Follows a diabetic diet some of the time. She is compliant with medication(s) and is tolerating med(s) without any side effects. She reports checking her glucose on a once a day schedule with sugars in the <150 range. Patient's last HgA1C was Hemoglobin A1C (%) Date Value 05/17/2024 6.9 11/16/2023 6.4 11/13/2021 6.3 04/16/2021 6.3 Hemoglobin A1C (POCT) (%) Date Value 01/06/2024 6.5 ) Last Ophthalmology exam was within the past 12 months Ms. Blanco reports history of hyperlipidemia. Current therapy includes atorvastatin (Lipitor) 80 mg. Denies side effects of muscle weakness or achiness. Her most recent lipid panels are reviewed. Cholesterol, Total (mg/dL) Date Value 05/17/2024 115 04/16/2021 193 HDL Cholesterol (mg/dL) Date Value 05/17/2024 71 04/16/2021 58 LDL Cholesterol (mg/dL) Date Value 05/17/2024 28 04/16/2021 91 Triglyceride (mg/dL) Date Value 05/17/2024 79 04/16/2021 222 Ms. Blanco indicates a history of hypertension and states that she is feeling well and denies any symptoms referable to elevated blood pressure. Specifically denies headache, chest pain, palpitations, dyspnea, and peripheral edema. Patient denies any side effects of her medication(s) and is compliant with their regimen. Last 3 Encounter BP Readings: Date: BP: 06/14/2024 136/70 05/25/2024 106/72 05/10/2024 138/78 She watches her diet for sodium, low fat and low cholesterol some of the time. She does not check BP's generally. Tia gets sporadic irregular exercise. PAST MEDICAL HISTORY Diagnosis Date Aortic stenosis, moderate 08/2019 Benign hypertensive heart disease Celiac disease Diabetes mellitus without mention of complication Diabetes mellitus Fatty liver Grave's disease IBS (irritable bowel syndrome) Medical marijuana use has card Ulcerative colitis, unspecified Vitamin D deficiency PAST SURGICAL HISTORY Procedure Laterality Date COLONOSCOPY FLX DX W/COLLJ SPEC WHEN PFRMD 09/09/2013 Colonoscopy ESOPHAGOGASTRODUODEN OSCOPY TRANSORAL DIAGNOSTIC 09/09/2013 EGD INFUSE RADIOACTIVE MATERIALS Iodine ablation for Grave's disease LAP UMBILICAL HERNIA REPAIR 02/17/2000 Lap umbilical hernia with a 19cm mesh LAPAROSCOPY SURG CHOLECYSTECTOMY 03/01/2007 Lap Mary with visiport RUQ insertion LIG/TRNSXJ FLP TUBE ABDL/VAG APPR UNI/BI Tubal ligation Social History Tobacco Use Smoking status: Former Current packs/day: 0.00 Average packs/day: 0.5 packs/day for 20.0 years (10.0 ttl pk-yrs) Types: Cigarettes Start date: 11/02/2002 Quit date: 11/02/2022 Years since quittin.6 Smokeless tobacco: Never Substance Use Topics Alcohol use: Yes Drug use: Yes Types: Marijuana FAMILY HISTORY Problem Relation Age of Onset Cervical Cancer Sister Diabetes Father Psychiatry Mother Hypertension Father Heart Mother Heart Father Alzheimer's Disease Mother Breast Cancer Sister Allergies: ALLERGIES Allergen Reactions Asa [Salicylates] Hives, GI Upset As a child Gluten Intolerance Metformin GI Upset, Itching Prednisone Itching Sulfa (Sulfonamide * Rash Current Meds: [START ON 06/15/2024] ARMOUR THYROID 30 mg tablet Take 1 tablet by mouth every Thursday, Thursday, and Thursday. In the morning. (Take this is addition to the 120 mg armor thyroid) insulin glargine (LANTUS SOLOSTAR U-100 INSULIN) 100 unit/mL (3 mL) Inject 14 Units subcutaneously daily at bedtime. atorvastatin (LIPITOR) 80 mg tablet Take 1 tablet by mouth once daily. clopidogrel (PLAVIX) 75 mg tablet Take 1 tablet by mouth once daily. Insulin Witt, Disposable, (PEN NEEDLE) 29 ga (more content not included)... Normal [facility] CNOVon 05-25-2024 CNOV Office Visit (FAMPWS) TIA BLANCO ([id number]) 1955 F Date Time Provider Department 05/25/24 2:40 PM ALVARADOLOGCATALINA ARREGUIN During your visit today, we recorded the following information about you: Pulse Respiration Blood pressure Weight 80/minute 18/minute 106/72 76.4 kg AlvaradologCatalina arreguin APRN.CNP 05/25/2024 3:19 PM Signed 05/25/2024 Patient presents with: ER F/U: 05/22/2024 [facility] for left lower quadrant pain SUBJECTIVE: This is a 68 year old that is here today for Above Complaints. HOSPITAL/ER FOLLOW UP: Reason for visit: abdominal pain Which facility: [facility] Date of visit: 05/22/2024 Diagnosis: endometrial thickening Testing done: Blood work, CT ABD/PEL, urine Treatment given: pantoprazole and Zofran for epigastric discomfort Reports last night was in terrible pain. Zofran seemed to help. Blood sugar was elevated last night at 242 this AM 177. Pain still in LLQ but seems to be mostly at night which she describes as sharp. Denies current pain, however she is worried about pain becoming bad again this evening. Bowels have been moving normally. Did make her appointment with gastro on 06/06/2024 as recommend in ER since she has a hx of ulcerative colitis. Denies abnormal vaginal bleeding, nausea, melana, hematochezia, or constipation ER record reviewed PAST MEDICAL HISTORY 08/2019: Aortic stenosis, moderate No date: Benign hypertensive heart disease No date: Celiac disease No date: Diabetes mellitus without mention of complication Comment: Diabetes mellitus No date: Fatty liver No date: Grave's disease No date: IBS (irritable bowel syndrome) No date: Medical marijuana use Comment: has card No date: Ulcerative colitis, unspecified No date: Vitamin D deficiency ALLERGIES Asa [Salicylates], Gluten, Metformin, Prednisone, and Sulfa (Sulfonamide Antibiotics) MEDICATIONS Current Outpatient Medications Medication Sig insulin glargine (LANTUS SOLOSTAR U-100 INSULIN) 100 unit/mL (3 mL) Inject 14 Units subcutaneously daily at bedtime. atorvastatin (LIPITOR) 80 mg tablet Take 1 tablet by mouth once daily. clopidogrel (PLAVIX) 75 mg tablet Take 1 tablet by mouth once daily. Insulin Witt, Disposable, (PEN NEEDLE) 29 gauge x 1/2 Use one needle per dose. 1 per day glimepiride (AMARYL) 2 mg tablet Take 1 tablet by mouth two times a day with meals. SITagliptin phosphate (JANUVIA) 100 mg tablet Take 1 tablet by mouth once daily. carvedilol (COREG) 6.25 mg tablet Take 1 tablet by mouth two times a day with meals. ergocalciferol 50,000 unit capsule (VITAMIN D2, DRISDOL) Take 1 capsule by mouth two times a week. ARMOUR THYROID 120 mg tablet Take 1 tablet PO daily in AM (Patient taking differently: Take 120 mg by mouth once daily.) blood sugar diagnostic (BLOOD GLUCOSE TEST) test strip Test blood sugar(s) 2 times daily. Dx: Type 2 DM - Uncontrolled Insulin: No spironolactone (ALDACTONE) 25 mg tablet Take 25 mg by mouth once daily. flash glucose scanning reader (FREESTYLE TARA 2 READER) 1 Device as directed. Type 2 diabetes uncontrolled, no insulin (Patient not taking: Reported on 01/06/2024) blood sugar diagnostic (FREESTYLE LITE STRIPS) test strip Test blood sugar(s) 8 times daily. Dx: E11.65. Insulin: No ELDERBERRY FRUIT ORAL Take 1,000 mg by mouth once daily. ondansetron orally disintegrating (ZOFRAN ODT) 4 mg disintegrating tablet Take 1 tablet by mouth every 8 hours as needed for nausea/vomiting. Blood Pressure Monitor (BLOOD PRESSURE KIT) 1 Each as directed. Dx: essential hypertension Lancets lancets Test blood sugar(s) 2 times daily. Dx: Type 2 DM - Uncontrolled Insulin: No No current facility-administere d medications for this visit. Medications and allergies reviewed by this provider. SOCIAL HISTORY Social History Tobacco Use Smoking status: Former Current packs/day: 0.00 Average packs/day: 0.5 packs/day for 20.0 years (10.0 ttl pk-yrs) Types: Cigarettes Start date: 11/02/2002 Quit date: 11/02/2022 Years since quittin.5 Smokeless tobacco: Never Substance Use Topics Alcohol use: Yes Drug use: Yes Types: Marijuana REVIEW OF SYSTEMS All other reviewed and negative other than HPI. OBJECTIVE: BP 106/72 Pulse 80 Resp 18 Wt 76.4 kg (168 lb 6.9 oz) SpO2 93% BMI 32.89 kg/m? . Vital signs reviewed by this provider. APPEARANCE Well appearing, alert, in no acute distress, well-hydrated, well nourished. EYES conjunctiva and sclera normal. HEART RRR with normal S1 and S2, no murmurs, no gallops, no JVD appreciated LUNG clear to auscultation. No wheezes, rhonchi or rales ABDOMEN bowel sounds normoactive, no bruits, soft, non-tender, non-distended, no tenderness to palpation. No rebound tenderness or guarding SKIN Skin color, texture, turgor normal, no suspicious rashes or lesions to exposed skin Depression Screening Never (more content not included)... Normal [facility] 05-23-2024 [facility] Telephone (FAMPWS) TIA BLACNO ([id number]) 1955 F Date Time Provider Department [facility]/23[facility]24 [facility] During your visit today, we recorded the following information about you: Robert Ulloa LPN 05/23/2024 9:36 AM Signed Pt called in and was seen in the [facility] ER last night 05-22-24 for left side abdominal pain. Pt had a CT done. Showed thickened endometrial lining of 1/4 cm no other acute findings. pt's provider/team not available. Pt scheduled with provider. Robert Tash Artemio, DOORS PREFITTER Allergies As of Date: 05/23/2024 Noted Allergy Reaction ASA (SALICYLATES) 01/05/2006 4 - Hives 8 - GI Upset Comments: As a child GLUTEN 10/17/2016 5 - Intolerance METFORMIN 8 - GI Upset 9 - Itching PREDNISONE 10/02/2012 9 - Itching SULFA (SULFONAMIDE ANTIBIOTICS) 12/29/2005 2 - Rash Date Reviewed: 05/10/2024 Reviewed by: Trista Falcon RN - Fully Assessed Reason for Visit: Future Appointment [256] Prescriptions as of 05/23/2024 - insulin glargine (LANTUS SOLOSTAR U-100 INSULIN) 100 unit/mL (3 mL) Inject 14 Units subcutaneously daily at bedtime. - Insulin Witt, Disposable, (PEN NEEDLE) 29 gauge x 1/2 Use one needle per dose. 1 per day - glimepiride (AMARYL) 2 mg tablet Take 1 tablet by mouth two times a day with meals. - SITagliptin phosphate (JANUVIA) 100 mg tablet Take 1 tablet by mouth once daily. - carvedilol (COREG) 6.25 mg tablet Take 1 tablet by mouth two times a day with meals. - ergocalciferol 50,000 unit capsule (VITAMIN D2, DRISDOL) Take 1 capsule by mouth two times a week. - ARMOUR THYROID 120 mg tablet Take 1 tablet PO daily in AM - blood sugar diagnostic (BLOOD GLUCOSE TEST) test strip Test blood sugar(s) 2 times daily. Dx: Type 2 DM - Uncontrolled E11.65 Insulin: No - atorvastatin (LIPITOR) 80 mg tablet Take 1 tablet by mouth once daily. - clopidogrel (PLAVIX) 75 mg tablet Take 1 tablet by mouth once daily. - spironolactone (ALDACTONE) 25 mg tablet Take 25 mg by mouth once daily. - flash glucose scanning reader (FREESTYLE TARA 2 READER) 1 Device as directed. Type 2 diabetes uncontrolled, no insulin - blood sugar diagnostic (FREESTYLE LITE STRIPS) test strip Test blood sugar(s) 8 times daily. Dx: E11.65. Insulin: No - ELDERBERRY FRUIT ORAL Take 1,000 mg by mouth once daily. - ondansetron orally disintegrating (ZOFRAN ODT) 4 mg disintegrating tablet Take 1 tablet by mouth every 8 hours as needed for nausea/vomiting. - Blood Pressure Monitor (BLOOD PRESSURE KIT) 1 Each as directed. Dx: essential hypertension - Lancets lancets Test blood sugar(s) 2 times daily. Dx: Type 2 DM - Uncontrolled E11.65 Insulin: No Problem List As Of Date 05/23/2024 Noted Resolved Diabetes mellitus type 2, controlled, without c*07/13/2006 12/08/2022 BENIGN HYPERTENSION [I10] 07/13/2006 ADJUSTMENT DISORDER WITH DEPRESSED MOOD [F43.21]07/13/2006 ANXIETY STATE NOS [F41.1] 07/13/2006 Hypothyroidism [E03.9] 07/13/2006 Abdominal pain, right upper quadrant [R10.11] 02/16/2007 12/08/2022 Tobacco Use Disorder [F17.200] 10/29/2009 Celiac disease [K90.0] 11/06/2009 Fatigue [R53.83] 09/07/2017 Medial epicondylitis, left [M77.02] 09/07/2017 Controlled type 2 diabetes mellitus without com*10/12/2018 12/08/2022 Situational anxiety [F41.8] 10/12/2018 Dyslipidemia [E78.5] 10/12/2018 Aortic stenosis, moderate [I35.0] 08/2019 Uncontrolled type 2 diabetes mellitus with hype*05/21/2020 Palpitations [R00.2] 02/19/2022 Uncontrolled hypertension [I10] 02/19/2022 Vitamin B12 deficiency [E53.8] 09/10/2022 Vitamin D deficiency [E55.9] 09/10/2022 History of tobacco abuse [Z87.891] 03/18/2023 Disease of spinal cord (HCC) [G95.9] 12/09/2023 Renal artery stenosis (HCC) [I70.1] 12/09/2023 Other ulcerative colitis without complications *12/09/2023 Diabetes mellitus (HCC) [E11.9] 12/09/2023 Hyperlipidemia, mixed [E78.2] 12/09/2023 Nonrheumatic aortic valve stenosis [I35.0] 12/09/2023 Obesity, Class I, BMI 30-34.9 [E66.9] 03/23/2024 Encounter Status:Closed by ROBERT ULLOA on 8/26/24 Normal [facility] CBC W Auto Differential pane l (Bld)on 05-17-2024 Basophils (Bld) [#/Vol] 0.07 10*3/uL Normal <0.11 [facility] Comment on above: Order Comment: Speci men Type: BLOOD SPECIMENOrdering Facility: [facility] Address: [address] [place] [address] Performed By: #### 5 7021-8 ####[facility] LABCLIA [id number] [place] [address] [place] Basophils/100 WBC (Bld) 0.6 % Normal [facility] Comment on above: Order Comment: Speci men Type: BLOOD SPECIMENOrdering Facility: [facility] Address: [address] [place] [address] Performed By: #### 5 7021-8 ####[facility] LABCLIA [id number] [place] [address] [place] Differential cell count method Nom (Bld) Auto Normal [facility] Comment on above: Order Comment: Speci men Type: BLOOD SPECIMENOrdering Facility: [facility] Address: [address] [place] [address] Performed By: #### 5 7021-8 ####[facility] LABCLIA [id number] [place] [address] [place] Eosinophils (Bld) [#/Vol] 0.18 10*3/uL Normal <0.46 [facility] Comment on above: Order Comment: Speci men Type: BLOOD SPECIMENOrdering Facility: [facility] Address: [address] [place] [address] Performed By: #### 5 7021-8 ####[facility] LABCLIA [id number] [place] [address] [place] Eosinophils/100 WBC (Bld) 1.5 % Normal [facility] Comment on above: Order Comment: Speci men Type: BLOOD SPECIMENOrdering Facility: [facility] Address: [address] [place] [address] Performed By: #### 5 7021-8 ####[facility] LABCLIA [id number] [place] [address] [place] Erythrocyte distribution width (RBC) [Ratio] 12.9 % Normal 11.5-15.0 [facility] Comment on above: Order Comment: Speci men Type: BLOOD SPECIMENOrdering Facility: [facility] Address: [address] [place] [address] Performed By: #### 5 7021-8 ####[facility] LABIA [id number] [place] [address] [place] Hematocrit (Bld) [Volume fraction] 42.6 % Normal 36.0-46.0 [facility] Comment on above: Order Comment: Speci men Type: BLOOD SPECIMENOrdering Facility: [facility] Address: [address] [place] [address] Performed By: #### 5 7021-8 ####[facility] LABIA [id number] [place] [address] [place] Hemoglobin (Bld) [Mass/Vol] 13.4 g/dL Normal 11.5-15.5 [facility] Comment on above: Order Comment: Speci men Type: BLOOD SPECIMENOrdering Facility: [facility] Address: [address] [place] [address] Performed By: #### 5 7021-8 ####[facility] LABCLIA [id number] [place] [address] [place] Immature granulocytes (Bld) [#/Vol] 0.05 10*3/uL Normal <0.10 [facility] Comment on above: Order Comment: Speci men Type: BLOOD SPECIMENOrdering Facility: [facility] Address: [address] [place] [address] Performed By: #### 5 7021-8 ####[facility] LABCLIA [id number] [place] [address] [place] Immature granulocytes/100 WBC (Bld) 0.4 % Normal [facility] Comment on above: Order Comment: Speci men Type: BLOOD SPECIMENOrdering Facility: [facility] Address: [address] [place] [address] Performed By: #### 5 7021-8 ####[facility] LABCLIA [id number] [place] [address] [place] Lymphocytes (Bld) [#/Vol] 2.19 10*3/uL Normal 1.00-4.00 [facility] Comment on above: Order Comment: Speci men Type: BLOOD SPECIMENOrdering Facility: [facility] Address: [address] [place] [address] Performed By: #### 5 7021-8 ####[facility] LABCLIA [id number] [place] [address] [place] Lymphocytes/100 WBC (Bld) 18.1 % Normal [facility] Comment on above: Order Comment: Speci men Type: BLOOD SPECIMENOrdering Facility: [facility] Address: [address] [place] [address] Performed By: #### 5 7021-8 ####[facility] LABCLIA [id number] [place] [address] [place] MCH (RBC) [Entitic mass] 30.2 pg Normal 26.0-34.0 [facility] Comment on above: Order Comment: Speci men Type: BLOOD SPECIMENOrdering Facility: [facility] Address: [address] [place] [address] Performed By: #### 5 7021-8 ####[facility] LABCLIA [id number] [place] [address] [place] MCHC (RBC) [Mass/Vol] 31.5 g/dL Normal 30.5-36.0 [facility] Comment on above: Order Comment: Speci men Type: BLOOD SPECIMENOrdering Facility: [facility] Address: [address] [place] [address] Performed By: #### 5 7021-8 ####[facility] LABCLIA [id number] [place] [address] [place] MCV (RBC) [Entitic vol] 95.9 fL Normal 80.0-100.0 [facility] Comment on above: Order Comment: Speci men Type: BLOOD SPECIMENOrdering Facility: [facility] Address: [address] [place] [address] Performed By: #### 5 7021-8 ####[facility] LABCLIA [id number] [place] [address] [place] Monocytes (Bld) [#/Vol] 0.87 10*3/uL High <0.87 [facility] Comment on above: Order Comment: Speci men Type: BLOOD SPECIMENOrdering Facility: [facility] Address: [address] [place] [address] Performed By: #### 5 7021-8 ####[facility] LABCLIA [id number] [place] [address] [place] Monocytes/100 WBC (Bld) 7.2 % Normal [facility] Comment on above: Order Comment: Speci men Type: BLOOD SPECIMENOrdering Facility: [facility] Address: [address] [place] [address] Performed By: #### 5 7021-8 ####[facility] LABCLIA [id number] [place] [address] [place] Neutrophils (Bld) [#/Vol] 8.71 10*3/uL High 1.45-7.50 [facility] Comment on above: Order Comment: Speci men Type: BLOOD SPECIMENOrdering Facility: [facility] Address: [address] [place] [address] Performed By: #### 5 7021-8 ####[facility] LABCLIA [id number] [place] [address] [place] Neutrophils/100 WBC (Bld) 72.2 % Normal [facility] Comment on above: Order Comment: Speci men Type: BLOOD SPECIMENOrdering Facility: [facility] Address: [address] [place] [address] Performed By: #### 5 7021-8 ####[facility] LABCLIA [id number] [place] [address] [place] Nucleated RBC (Bld) [#/Vol] 10*3/uL Normal <0.01 [facility] Comment on above: Order Comment: Speci men Type: BLOOD SPECIMENOrdering Facility: [facility] Address: [address] [place] [address] Performed By: #### 5 7021-8 ####[facility] LABCLIA [id number] [place] [address] [place] Nucleated RBC/100 WBC (Bld) [Ratio] 0.0 /100 WBC Normal [facility] Comment on above: Order Comment: Speci men Type: BLOOD SPECIMENOrdering Facility: [facility] Address: [address] [place] [address] Performed By: #### 5 7021-8 ####[facility] LABCLIA [id number] [place] [address] [place] Platelet mean volume (Bld) [Entitic vol] 10.2 fL Normal 9.0-12.7 [facility] Comment on above: Order Comment: Speci men Type: BLOOD SPECIMENOrdering Facility: [facility] Address: [address] [place] [address] Performed By: #### 5 7021-8 ####[facility] LABCLIA [id number] [place] [address] [place] Platelets (Bld) [#/Vol] 324 10*3/uL Normal 150-400 [facility] Comment on above: Order Comment: Speci men Type: BLOOD SPECIMENOrdering Facility: [facility] Address: [address] [place] [address] Performed By: #### 5 7021-8 ####[facility] LABCLIA [id number] [address] [address] [place] RBC (Bld) [#/Vol] 4.44 10*6/uL Normal 3.90-5.20 [facility] Comment on above: Order Comment: Speci men Type: BLOOD SPECIMENOrdering Facility: [facility] Address: [address] [place] [address] Performed By: #### 5 7021-8 ####[facility] LABCLIA [id number] [place] [address] [place] WBC (Bld) [#/Vol] 12.07 10*3/uL High 3.70-11.00 [facility] Comment on above: Order Comment: Speci men Type: BLOOD SPECIMENOrdering Facility: [facility] Address: [address] [place] [address] Performed By: #### 5 7021-8 ####[facility] LABCLIA [id number] [place] [id number] [place] Comprehensive metabolic 2000 panelon 05-17-2024 Albumin [Mass/Vol] 4.3 g/dL Normal 3.9-4.9 [facility] Comment on above: Order Comment: Speci men Type: BLOOD SPECIMENOrdering Facility: [facility] Address: [address] [place] [address] Performed By: #### 2 4323-8, 83329-2, 3016-3, 71212-6 ####[facility] LABCLIA [id number] [place] [id number] [place] ALP [Catalytic activity/Vol] 86 U/L Normal 34-123 [facility] Comment on above: Order Comment: Speci men Type: BLOOD SPECIMENOrdering Facility: [facility] Address: [address] [place], [place] [address] Performed By: #### 2 4323-8, 37059-2, 6-3, 11633-0 ####[facility] LABCLIA [id number] [place] [id number] [place] ALT [Catalytic activity/Vol] 12 U/L Normal 7-38 [facility] Comment on above: Order Comment: Speci men Type: BLOOD SPECIMENOrdering Facility: [facility] Address: [address] [place] [address] Performed By: #### 2 4323-8, 07372-3, 3015-3, 93994-3 ####[facility] LABCLIA [id number] [place] [address] [place] Anion gap [Moles/Vol] 9 mmol/L Normal 8-15 [facility] Comment on above: Order Comment: Speci men Type: BLOOD SPECIMENOrdering Facility: [facility] Address: [address] [place] [address] Performed By: #### 2 4323-8, 95393-0, 3015-3, 22619-3 ####[facility] LABIA [id number] [place] [address] [place] AST [Catalytic activity/Vol] 15 U/L Normal 13-35 [facility] Comment on above: Order Comment: Speci men Type: BLOOD SPECIMENOrdering Facility: [facility] Address: [address] [place] [address] Performed By: #### 2 4323-8, 95741-8, 3015-3, 65235-1 ####[facility] LABCLIA [id number] [place] [id number] [place] Bilirubin [Mass/Vol] 0.6 mg/dL Normal 0.2-1.3 [facility] Comment on above: Order Comment: Speci men Type: BLOOD SPECIMENOrdering Facility: [facility] Address: [address] [place], [place] [address] Performed By: #### 2 4323-8, 48367-6, 3015-3, 82068-4 ####[facility] LABCLIA [id number] [address] [address] [place] Calcium [Mass/Vol] 9.6 mg/dL Normal 8.5-10.2 [facility] Comment on above: Order Comment: Speci men Type: BLOOD SPECIMENOrdering Facility: [facility] Address: [address] [place] [address] Performed By: #### 2 4323-8, 31861-0, 3, 69470-8 ####[facility] LABIA [id number] [place] [id number] [place] Chloride [Moles/Vol] 100 mmol/L Normal 98-107 [facility] Comment on above: Order Comment: Speci men Type: BLOOD SPECIMENOrdering Facility: [facility] Address: [address] [place], [place] [address] Performed By: #### 2 4323-8, 51589-0, 3, 73002-7 ####[facility] LABIA [id number] [place] [id number] [place] CO2 [Moles/Vol] 27 mmol/L Normal 22-30 [facility] Comment on above: Order Comment: Speci men Type: BLOOD SPECIMENOrdering Facility: [facility] Address: [address] [place], [place] [address] Performed By: #### 2 4323-8, 50088-0, 3, 22119-9 ####[facility] LABCLIA [id number] [address] [address] [place] Creatinine [Mass/Vol] 0.67 mg/dL Normal 0.58-0.96 [facility] Comment on above: Order Comment: Speci men Type: BLOOD SPECIMENOrdering Facility: [facility] Address: [address] [place] [id number] Performed By: #### 2 4323-8, 95392-0, 3016-3, 80348-1 ####[facility] LABCLIA [id number] [place] [address] [place] Creatinine and Glomerular filtration rate.predicted panel (S/P/Bld) 95 mL/min/1.73m??? Normal >=60 [facility] Comment on above: Order Comment: Abimbola diaz Type: BLOOD SPECIMENOrdering Facility: [facility] Address: [address] [place] [address] Result Comment: Ana Paula mated Glomerular Filtration Rate (eGFR) is calculated using the 2020 CKD-EPI creatinine equation. This equation utilizes serum creatinine, sex, and age as parameters. The creatinine assay has traceable calibration to isotope dilution-mass spectrometry. Refer to KDIGO guidelines for clinical interpretation. In patients with unstable renal function, e.g. those with acute kidney injury, the eGFR may not accurately reflect actual GFR. Performed By: #### 2 4323-8, 61431-2, 3016-3, 44302-0 ####[facility] LABCLIA [id number] [place] [id number] [place] Glucose [Mass/Vol] 176 mg/dL High 74-99 [facility] Comment on above: Order Comment: Abimbola diaz Type: BLOOD SPECIMENOrdering Facility: [facility] Address: [address] [place] [address] Result Comment: The [place] Diabetes Association (ADA) provides guidance for cutoff values for fasting glucose and random glucose. The ADA defines fasting as no caloric intake for at least 8 hours. Fasting plasma glucose results between 100 to 125 mg/dL indicate increased risk for diabetes (prediabetes). Fasting plasma glucose results greater than or equal to 126 mg/dL meet the criteria for diagnosis of diabetes. In the absence of unequivocal hyperglycemia, results should be confirmed by repeat testing. In a patient with classic symptoms of hyperglycemia or hyperglycemic crisis, random plasma glucose results greater than or equal to 200 mg/dL meet the criteria for diagnosis of diabetes. Reference: Standards of Medical Care in Diabetes 2016, [place] Diabetes Association. Diabetes Care. 2016.39(Suppl 1). Performed By: #### 2 4323-8, 93922-8, 3015-3, 67312-9 ####[facility] LABCLIA [id number] [address] [address] [place] Potassium [Moles/Vol] 4.8 mmol/L Normal 3.7-5.1 [facility] Comment on above: Order Comment: Speci men Type: BLOOD SPECIMENOrdering Facility: [facility] Address: [address] [place] [address] Performed By: #### 2 4323-8, 63487-4, 3, 78517-7 ####[facility] LABIA [id number] [address] [address] [place] Protein [Mass/Vol] 6.9 g/dL Normal 6.3-8.0 [facility] Comment on above: Order Comment: Speci men Type: BLOOD SPECIMENOrdering Facility: [facility] Address: [address] [place] [address] Performed By: #### 2 4323-8, 82155-2, 3, 79739-5 ####[facility] LABIA [id number] [address] [address] [place] Sodium [Moles/Vol] 136 mmol/L Normal 136-144 [facility] Comment on above: Order Comment: Speci men Type: BLOOD SPECIMENOrdering Facility: [facility] Address: [address] [place], [place] [address] Performed By: #### 2 4323-8, 42980-6, 3, 54590-8 ####[facility] LABCLIA [id number] [address] [address] [place] Urea nitrogen [Mass/Vol] 17 mg/dL Normal 7-21 [facility] Comment on above: Order Comment: Speci men Type: BLOOD SPECIMENOrdering Facility: [facility] Address: [address] [place] [address] Performed By: #### 2 4323-8, 71693-2, 3016-3, 54797-6 ####[facility] LABCLIA [id number] [place] [address] [place] HbA1c (Bld)on 05-17-2024 Average glucose Estimated from glycated hemoglobin (Bld) [Mass/Vol] 151 mg/dL Normal [facility] Comment on above: Order Comment: Abimbola diaz Type: BLOOD SPECIMENOrdering Facility: [facility] Address: [address] [place] [address] Result Comment: eAG: (Estimated average glucose) is a calculated value from HgbA1c and is hardware supplies sales representative of the average blood glucose level in the last 2-3 month period. Performed By: #### 5 5454-3 ####[facility] LABCLIA [id number] [place] [address] [place] HbA1c (Bld) [Mass fraction] 6.9 % High 4.3-5.6 [facility] Comment on above: Order Comment: Abimbola diaz Type: BLOOD SPECIMENOrdering Facility: [facility] Address: [address] [place] [address] Result Comment: [place] Diabetes Association guidelines indicate that patients with HgbA1c in the range 5.7-6.4% are at increased risk for development of diabetes, and intervention by lifestyle modification may be beneficial. HgbA1c greater or equal to 6.5% is considered diagnostic of diabetes. Performed By: #### 5 5454-3 ####[facility] LABCLIA [id number] [place] [address] [place] Lipid 1996 panelon 4 Cholesterol [Mass/Vol] 115 mg/dL Normal <200 [facility] Comment on above: Order Comment: Abimbola diaz Type: BLOOD SPECIMENOrdering Facility: [facility] Address: [address] [place] [address] Result Comment: <200 mg/dL, Desirable 200-239 mg/dL, Borderline high >239 mg/dL, High Performed By: #### 2 4323-8, 47980-4, 6-3, 56295-0 ####[facility] LABCLIA [id number] [address] [address] [place] Cholesterol in HDL [Mass/Vol] 71 mg/dL Normal >39 [facility] Comment on above: Order Comment: Speci men Type: BLOOD SPECIMENOrdering Facility: [facility] Address: [address] [place] [address] Result Comment: 40-5 9 mg/dL, Acceptable >59 mg/dL, High: Negative risk factor for coronary heart disease <40 mg/dL, Low: Positive risk factor for coronary heart disease Performed By: #### 2 4323-8, 25123-6, 3015-3, 13430-8 ####[facility] LABCLIA [id number] [address] [address] [place] Cholesterol in LDL [Mass/Vol] 28 mg/dL Normal <100 [facility] Comment on above: Order Comment: Speci men Type: BLOOD SPECIMENOrdering Facility: [facility] Address: [address] [place] [address] Result Comment: <100 mg/dL, Optimal 100-129 mg/dL, Near optimal/above optimal 130-159 mg/dL, Borderline high 160-189 mg/dL, High >189 mg/dL, Very high Secondary prevention optimal LDL Cholesterol levels are recommended to be < 70 mg/dL Performed By: #### 2 4323-8, 05366-6, 3015-3, 52586-2 ####[facility] LABCLIA [id number] [address] [address] [place] Cholesterol in LDL/Cholesterol in HDL [Mass ratio] 0.39 {ratio} Normal <2.54 [facility] Comment on above: Order Comment: Speci men Type: BLOOD SPECIMENOrdering Facility: [facility] Address: [address] [place] [address] Result Comment: Kyra glover: 1. National Cholesterol Education Program ATP III Guideline At-A-Glance Quick Desk Reference: National Heart, Lung, and Blood [place]. National Institutes of Health. 2001: NIH Publication No. 01-3305. 2. An International Atherosclerosis Society position paper: global recommendations for the management of dyslipidemia: executive summary, Atherosclerosis. 2014: 232(2):410-413. Performed By: #### 2 4323-8, 09150-9, 6-3, 98978-8 ####[facility] LABCLIA [id number] [place] [address] [place] Cholesterol in VLDL [Mass/Vol] 16 mg/dL Normal <30 [facility] Comment on above: Order Comment: Speci men Type: BLOOD SPECIMENOrdering Facility: [facility] Address: [address] [place] [address] Performed By: #### 2 4323-8, 56557-9, 6-3, 58272-2 ####[facility] LABCLIA [id number] [place] [address] [place] Cholesterol non HDL [Mass/Vol] 44 mg/dL Normal <130 [facility] Comment on above: Order Comment: Noryi men Type: BLOOD SPECIMENOrdering Facility: [facility] Address: [address] [place] [address] Result Comment: <130 mg/dL, Optimal 130-159 mg/dL, Near optimal/above optimal 160-189 mg/dL, Borderline high 190-219 mg/dL, High >219 mg/dL, Very high Secondary prevention optimal non HDL Cholesterol levels are recommended to be <100 mg/dL Performed By: #### 2 4323-8, 77420-4, 6-3, 28543-0 ####[facility] LABIA [id number] [place] [address] [place] Cholesterol.total/Ch olesterol in HDL [Mass ratio] 1.62 {ratio} Normal <5.10 [facility] Comment on above: Order Comment: Speci men Type: BLOOD SPECIMENOrdering Facility: [facility] Address: [address] [place] [address] Performed By: #### 2 4323-8, 25149-4, 3015-3, 87661-2 ####[facility] LABCLIA [id number] [place] [address] [place] FASTING TIME 12 hrs Normal [facility] Comment on above: Order Comment: Speci men Type: BLOOD SPECIMENOrdering Facility: [facility] Address: [address] [place] [address] Performed By: #### 2 4323-8, 15630-1, 3, 75571-3 ####[facility] LABCLIA [id number] [place] [address] [place] Triglyceride [Mass/Vol] 79 mg/dL Normal <150 [facility] Comment on above: Order Comment: Speci men Type: BLOOD SPECIMENOrdering Facility: [facility] Address: [address] [place] [address] Result Comment: <150 mg/dL, Normal 150-199 mg/dL, Borderline high 200-499 mg/dL, High >499 mg/dL, Very high Performed By: #### 2 4323-8, 47394-1, 3, 57487-5 ####[facility] LABCLIA [id number] [place] [address] [place] Magnesium SerPl-mCncon 05-17 Magnesium [Mass/Vol] 1.9 mg/dL Normal 1.7-2.3 [facility] Comment on above: Order Comment: Speci men Type: BLOOD SPECIMENOrdering Facility: [facility] Address: [address] [place] [address] Performed By: #### 2 4323-8, 66903-9, 3015-3, 82678-7 ####[facility] LABCLIA [id number] [place] [address] [place] TSH SerPl-aCncon 05-17-2024 TSH Qn 1.960 m[IU]/L Normal 0.270-4.200 [facility] Comment on above: Order Comment: Speci men Type: BLOOD SPECIMENOrdering Facility: [facility] Address: [address] [place] [address] Performed By: #### 2 4323-8, 67432-4, 3016-3, 47568-7 ####[facility] LABCLIA [id number] [place]ADONNA PORTILLODESK [id number] OF [facility] CNOVon 05-10-2024 CNOV Office Visit (ENWSTR) TIA BLANCO ([id number]) 1955 F Date Time Provider Department 05/10/24 1:40 PM BEAN ISAAC ENWSJAMIL During your visit today, we recorded the following information about you: Pulse Respiration Blood pressure Weight 76/minute 18/minute 138/78 77.9 kg Height 1.524 m Bean Isaac MD 05/11/2024 11:16 AM Addendum [facility] Initial Clinic Visit Note Referred by: PCP- Preet Farrar DO History of present illness: Tia Blanco is a 68 year old female here today for evaluation of Type 2 DM, she also has a PMH of HTN, HLD, CVA, Obesity class I, Hypothyroidism, Celiac disease. She reports of a recent back surgery ending up in paralysis biut now she is walking and back onto exercise -Initially diagnosed: 15 years ago. On regular blood work -Length of time on oral medications before switching to insulin: 13 years, until Ozempic, 15 years until lantus -Duration of insulin use: 6 weeks Complications: Cardiovascular -- Yes HTN, HLD, in 2021 she had a Stroke Statin Use -- Yes Retinopathy -- No Last JUAN/Retina Eval: she has an appt next month Nephropathy -- Yes NICOLE/ARB Use -- Yes Polyneuropathy -- No Foot Exam: last time was 02/2024 Obesity -- Yes Other -- No -Family history of diabetes mellitus: Father, older sister, both had type 1 and both Personal history of DKA or HHS-- No Personal history of pancreatitis-- No History of alcohol consumption--No Family history of thyroid cancer-- No Personal history of Urinary tract infections -- None is the recent past . Diabetes Medications -Current regimen: lantus 12 units daily in the morning (started using insulin 6 weeks ago), Sitagliptin 100 mg daily, glimepiride 2 mg daily -Misses doses: None -Adverse medication effects: no -Rotating injection sites: yes She was on Ozempic 1 mg for more than 1 year, when it was increased to 2 mg she was hospitalized due to vomiting, diarrhea and was diagnosed with Gastroparesis assumed to be de to the medication -Previously Used DM Meds: Yes Metformin - GI upset Jardiance- Yeast infection . Blood sugars -Self monitoring of blood sugar via fingerstick: 4 x daily Insurance did not approve CGM. Reports she submits her BG to Dr. Farrar every 1 to 2 weeks, and has submitted today as well- but telephone encounter note mentions she submitted her BP readings -Brought blood glucose log for review: yes, in phone -BG log reviewed: --Fastins-170s --Prelunch: 110-150 --Predinner: 120s-140s --Bedtime: 150s-170s She denied any hyperglycemic symptoms today. . Hypoglycemia -Hypoglycemic episodes: denied any lows, lower than 89 -Frequency and timing of hypoglycemia: n/a -Hypoglycemia awareness: n/a Lifestyle -Exercise: 30 mins on [employer] daily -Diet: Breakfast: 3 eggs, 1 slice of gluten free bread Lunch: yogurt with 3 gms of carbs, either cheese or chicken sausage, half orange or small cup of fruit Dinner: salmon, chicken strips with 3 gms of carbs, broccoli or brussels sprouts . Blood pressure -Today BP 138/78 -BP cuff at home: -Current antihypertensive therapy: carvedilol 6.25 mg BID, Spironolactone 25 mg daily . Lipids -she is on atorvastatin high dose for hx of stroke in the past ROS: SYSTEMIC: Denies fatigue, malaise, energy, Weight has been stable, heat/cold intolerance, polydipsia EYES: Denies blurring of vision, diplopia, pain/discomfort, excessive tearing, swelling of eye lids, bulging, redness, dryness, NECK: Denies goiter, lump, pain/discomfort, dysphagia, hoarseness, sore thorat RESPIRATORY: Denies dyspnea at rest/with exertion, orthopnea cough, pleuritic chest pain, snoring, apnea episodes CARDIOVASCULAR: Chest pain, palpitations, irregular heart beats GASTRO-INTESTINAL:De nies Nausea, vomiting, abdominal pain, hyperdefecation, rectal bleeding NEUROLOGICAL: Denies dizziness, lightheadedness, weakness, cramping, numbness/tingling of extremities MUSCULOSKELETAL: Denies joint pain, stiffness, swelling, cramping or weakness. GENITOURINARY: Denies polyuria, recurrent UTI/yeast infections SKIN: Denies dryness, brittle nails, hair loss, alopecia, excessive sweating, flushing, darkening of skin PSYCHIATRIC: Denies anxiety, depression, panic attacks, irritability, mood swings Past Medical History PAST MEDICAL HISTORY 08/2019: Aortic stenosis, moderate No date: Benign hypertensive heart disease No date: Celiac disease No date: Diabetes mellitus without mention of complication Comment: Diabetes mellitus No date: Fatty liver No date: Grave's disease No date: IBS (irritable bowel syndrome) No date: Medical marijuana use Comment: has card No date: Ulcerative colitis, unspecified No date: Vitamin D deficiency Past Surgical History PAST SURGICAL HISTO (more content not included)... Normal [facility] CBC W Auto Differential pane l (Bld)on 05-03-2024 Basophils (Bld) [#/Vol] 0.06 10*3/uL Normal <0.11 [facility] Comment on above: Order Comment: Speci men Type: BLOOD SPECIMENOrdering Facility: [facility] Address: [address] [place] [address] Performed By: #### 5 7021-8 ####[facility] LABCLIA [id number] [place] [address] [place] Basophils/100 WBC (Bld) 0.5 % Normal [facility] Comment on above: Order Comment: Speci men Type: BLOOD SPECIMENOrdering Facility: [facility] Address: [address] [place] [address] Performed By: #### 5 7021-8 ####[facility] LABCLIA [id number] [place] [address] [place] Differential cell count method Nom (Bld) Auto Normal [facility] Comment on above: Order Comment: Speci men Type: BLOOD SPECIMENOrdering Facility: [facility] Address: [address] [place] [address] Performed By: #### 5 7021-8 ####[facility] LABCLIA [id number] [place] [address] [place] Eosinophils (Bld) [#/Vol] 0.16 10*3/uL Normal <0.46 [facility] Comment on above: Order Comment: Speci men Type: BLOOD SPECIMENOrdering Facility: [facility] Address: [address] [place] [address] Performed By: #### 5 7021-8 ####[facility] LABCLIA [id number] [place] [address] [place] Eosinophils/100 WBC (Bld) 1.4 % Normal [facility] Comment on above: Order Comment: Speci men Type: BLOOD SPECIMENOrdering Facility: [facility] Address: [address] [place] [address] Performed By: #### 5 7021-8 ####[facility] LABCLIA [id number] [place] [address] [place] Erythrocyte distribution width (RBC) [Ratio] 13.0 % Normal 11.5-15.0 [facility] Comment on above: Order Comment: Speci men Type: BLOOD SPECIMENOrdering Facility: [facility] Address: [address] [place] [address] Performed By: #### 5 7021-8 ####[facility] LABCLIA [id number] [address] [place] Hematocrit (Bld) [Volume fraction] 41.9 % Normal 36.0-46.0 [facility] Comment on above: Order Comment: Speci men Type: BLOOD SPECIMENOrdering Facility: [facility] Address: [address] [place] [address] Performed By: #### 5 7021-8 ####[facility] LABCLIA [id number] [place] [address] [place] Hemoglobin (Bld) [Mass/Vol] 13.5 g/dL Normal 11.5-15.5 [facility] Comment on above: Order Comment: Speci men Type: BLOOD SPECIMENOrdering Facility: [facility] Address: [address] [place] [address] Performed By: #### 5 7021-8 ####[facility] LABCLIA [id number] [place] [address] [place] Immature granulocytes (Bld) [#/Vol] 0.05 10*3/uL Normal <0.10 [facility] Comment on above: Order Comment: Speci men Type: BLOOD SPECIMENOrdering Facility: [facility] Address: [address] [place] [address] Performed By: #### 5 7021-8 ####[facility] LABCLIA [id number] [place] [address] [place] Immature granulocytes/100 WBC (Bld) 0.4 % Normal [facility] Comment on above: Order Comment: Speci men Type: BLOOD SPECIMENOrdering Facility: [facility] Address: [address] [place] [address] Performed By: #### 5 7021-8 ####[facility] LABCLIA [id number] [place] [address] [place] Lymphocytes (Bld) [#/Vol] 2.34 10*3/uL Normal 1.00-4.00 [facility] Comment on above: Order Comment: Speci men Type: BLOOD SPECIMENOrdering Facility: [facility] Address: [address] [place] [address] Performed By: #### 5 7021-8 ####[facility] LABCLIA [id number] [place] [address] [place] Lymphocytes/100 WBC (Bld) 19.8 % Normal [facility] Comment on above: Order Comment: Speci men Type: BLOOD SPECIMENOrdering Facility: [facility] Address: [address] [place] [address] Performed By: #### 5 7021-8 ####[facility] LABCLIA [id number] [place] [address] [place] MCH (RBC) [Entitic mass] 30.8 pg Normal 26.0-34.0 [facility] Comment on above: Order Comment: Speci men Type: BLOOD SPECIMENOrdering Facility: [facility] Address: [address] [place] [address] Performed By: #### 5 7021-8 ####[facility] LABCLIA [id number] [place] [address] [place] MCHC (RBC) [Mass/Vol] 32.2 g/dL Normal 30.5-36.0 [facility] Comment on above: Order Comment: Speci men Type: BLOOD SPECIMENOrdering Facility: [facility] Address: [address] [place] [address] Performed By: #### 5 7021-8 ####[facility] LABCLIA [id number] [place] [address] [place] MCV (RBC) [Entitic vol] 95.4 fL Normal 80.0-100.0 [facility] Comment on above: Order Comment: Speci men Type: BLOOD SPECIMENOrdering Facility: [facility] Address: [address] [place] [address] Performed By: #### 5 7021-8 ####[facility] LABCLIA [id number] [place] [address] [place] Monocytes (Bld) [#/Vol] 0.90 10*3/uL High <0.87 [facility] Comment on above: Order Comment: Speci men Type: BLOOD SPECIMENOrdering Facility: [facility] Address: [address] [place] [address] Performed By: #### 5 7021-8 ####[facility] LABCLIA [id number] [place] [address] [place] Monocytes/100 WBC (Bld) 7.6 % Normal [facility] Comment on above: Order Comment: Speci men Type: BLOOD SPECIMENOrdering Facility: [facility] Address: [address] [place] [address] Performed By: #### 5 7021-8 ####[facility] LABCLIA [id number] [place] [address] [place] Neutrophils (Bld) [#/Vol] 8.31 10*3/uL High 1.45-7.50 [facility] Comment on above: Order Comment: Speci men Type: BLOOD SPECIMENOrdering Facility: [facility] Address: [address] [place] [address] Performed By: #### 5 7021-8 ####[facility] LABCLIA [id number] [place] [id number] [place] Neutrophils/100 WBC (Bld) 70.3 % Normal [facility] Comment on above: Order Comment: Speci men Type: BLOOD SPECIMENOrdering Facility: [facility] Address: [address] [place] [address] Performed By: #### 5 7021-8 ####[facility] LABCLIA [id number] [place] [address] [place] Nucleated RBC (Bld) [#/Vol] 10*3/uL Normal <0.01 [facility] Comment on above: Order Comment: Speci men Type: BLOOD SPECIMENOrdering Facility: [facility] Address: [address] [place] [address] Performed By: #### 5 7021-8 ####[facility] LABCLIA [id number] [place] [address] [place] Nucleated RBC/100 WBC (Bld) [Ratio] 0.0 /100 WBC Normal [facility] Comment on above: Order Comment: Speci men Type: BLOOD SPECIMENOrdering Facility: [facility] Address: [address] [place] [address] Performed By: #### 5 7021-8 ####[facility] LABCLIA [id number] [place] [address] [place] Platelet mean volume (Bld) [Entitic vol] 10.3 fL Normal 9.0-12.7 [facility] Comment on above: Order Comment: Speci men Type: BLOOD SPECIMENOrdering Facility: [facility] Address: [address] [place] [address] Performed By: #### 5 7021-8 ####[facility] LABCLIA [id number] [place] [address] [place] Platelets (Bld) [#/Vol] 347 10*3/uL Normal 150-400 [facility] Comment on above: Order Comment: Speci men Type: BLOOD SPECIMENOrdering Facility: [facility] Address: [address] [place] [address] Performed By: #### 5 7021-8 ####[facility] LABCLIA [id number] [place] [address] [place] RBC (Bld) [#/Vol] 4.39 10*6/uL Normal 3.90-5.20 [facility] Comment on above: Order Comment: Speci men Type: BLOOD SPECIMENOrdering Facility: [facility] Address: [address] [place] [address] Performed By: #### 5 7021-8 ####[facility] LABCLIA [id number] [address] [address] [place] WBC (Bld) [#/Vol] 11.82 10*3/uL High 3.70-11.00 [facility] Comment on above: Order Comment: Speci men Type: BLOOD SPECIMENOrdering Facility: [facility] Address: [address] [place] [address] Performed By: #### 5 7021-8 ####[facility] LABCLIA [id number] [place] [id number] [place] Ferritin SerPl-ncon 2023 Ferritin [Mass/Vol] 24.4 ng/mL Normal 14.7-205.1 [facility] Comment on above: Order Comment: Speci men Type: BLOOD SPECIMENOrdering Facility: [facility] Address: [address] [place] [address] Performed By: #### 3 084-1, 52992-6, 71227-5, 6-4 ####[facility] LABCLIA [id number] [place] [address] [place] Iron and Iron binding capaci panelon 05-03-2024 Iron [Mass/Vol] 78 ug/dL Normal 41-186 [facility] Comment on above: Order Comment: Speci men Type: BLOOD SPECIMENOrdering Facility: [facility] Address: [address] [place] [address] Performed By: #### 3 084-1, 49056-4, 26802-2, 2276-4 ####[facility] LABCLIA [id number] [place] [id number] [place] Iron binding capacity [Mass/Vol] 419 ug/dL High 232-386 [facility] Comment on above: Order Comment: Speci men Type: BLOOD SPECIMENOrdering Facility: [facility] Address: [address] [place] [address] Performed By: #### 3 084-1, 37554-3, 03697-4, 2276-4 ####[facility] LABCLIA [id number] [place] [address] [place] Iron/TIBC [Molar ratio] 18.6 % Normal 15.0-57.0 [facility] Comment on above: Order Comment: Speci men Type: BLOOD SPECIMENOrdering Facility: [facility] Address: [address] [place] [address] Performed By: #### 3 084-1, 89676-6, 81553-8, 2276-4 ####[facility] LABIA [id number] [place] [address] [place] PTH-Intact SerPl-ncon 08-0 Parathyrin.intact [Mass/Vol] 30 pg/mL Normal 15-65 [facility] Comment on above: Order Comment: Speci men Type: BLOOD SPECIMENOrdering Facility: [facility] Address: [address] [place] [address] Performed By: #### 2 731-8 ####[facility] LABIA [id number] [place] [address] [place] Prot/Creat Uron 05-03-2024 Protein/Creatinine (U) [Mass ratio] 0.40 mg/mg High <0.15 [facility] Comment on above: Order Comment: Speci men Type: URINE SPECIMENOrdering Facility: [facility] Address: [address] [place] [address] Result Comment: Adul t Proteinuria Categories: <0.15 mg/mg is considered normal to mildly increased 0.15 - 0.50 mg/mg is considered moderately increased >0.50 mg/mg is considered severely increased KDIGO. (2013). KDIGO 2012 Clinical Practice Guideline for the Evaluation and Management of Chronic Kidney Disease. Official Journal of the International Society of Nephrology, 3(1), 1-150. Performed By: #### 2 890-2 ####[facility] LABCLIA [id number] [place] [id number] [place] Protein/Creatinine (U) [Mass ratio]on 05-03-2024 Creatinine (U) [Mass/Vol] 12.5 mg/dL Low 20.0-300.0 [facility] Comment on above: Order Comment: Speci men Type: URINE SPECIMENOrdering Facility: [facility] Address: [address] [place] [address] Performed By: #### 2 890-2 ####[facility] LABCLIA [id number] [place] [address] [place] Protein (U) [Mass/Vol] 5 mg/dL Normal 0-20 [facility] Comment on above: Order Comment: Speci men Type: URINE SPECIMENOrdering Facility: [facility] Address: [address] [place] [address] Performed By: #### 2 890-2 ####[facility] LABCLIA [id number] [place] [address] [place] Renal function 2000 panelon 05-03-2024 Albumin [Mass/Vol] 4.5 g/dL Normal 3.9-4.9 [facility] Comment on above: Order Comment: Speci men Type: BLOOD SPECIMENOrdering Facility: [facility] Address: [address] [place] [address] Performed By: #### 3 084-1, 24473-7, 74342-6, 2276-4 ####[facility] LABCLIA [id number] [place] [id number] [place] Anion gap [Moles/Vol] 10 mmol/L Normal 8-15 [facility] Comment on above: Order Comment: Speci men Type: BLOOD SPECIMENOrdering Facility: [facility] Address: [address] [place] [address] Performed By: #### 3 084-1, 09899-8, 16059-0, 2275-12 ####[facility] LABCLIA [id number] [facility] [address] [address] [place] Calcium [Mass/Vol] 10.0 mg/dL Normal 8.5-10.2 [facility] Comment on above: Order Comment: Speci men Type: BLOOD SPECIMENOrdering Facility: [facility] Address: [address] [place] [address] Performed By: #### 3 084-1, 01325-2, 41331-7, 2275-12 ####[facility] LABCLIA [id number] [place] [address] [place] Chloride [Moles/Vol] 100 mmol/L Normal 98-107 [facility] Comment on above: Order Comment: Speci men Type: BLOOD SPECIMENOrdering Facility: [facility] Address: [address] [place] [address] Performed By: #### 3 084-1, 05035-1, 71557-9, 2275-12 ####[facility] LABCLIA [id number] [facility] [place] [id number] [place] CO2 [Moles/Vol] 27 mmol/L Normal 22-30 [facility] Comment on above: Order Comment: Speci men Type: BLOOD SPECIMENOrdering Facility: [facility] Address: [address] [place] [address] Performed By: #### 3 084-1, 45703-7, , 2275-12 ####[facility] LABCLIA [id number] [facility] [address] [address] [place] Creatinine [Mass/Vol] 0.68 mg/dL Normal 0.58-0.96 [facility] Comment on above: Order Comment: Abimbola diaz Type: BLOOD SPECIMENOrdering Facility: [facility] Address: [address] [place] [address] Performed By: #### 3 084-1, 65909-7, 19245-2, 2276-4 ####[facility] LABCLIA [id number] [place] [id number] [place] Creatinine and Glomerular filtration rate.predicted panel (S/P/Bld) 95 mL/min/1.73m??? Normal >=60 [facility] Comment on above: Order Comment: Abimbola diaz Type: BLOOD SPECIMENOrdering Facility: [facility] Address: [address] [place] [address] Result Comment: Ana Paula mated Glomerular Filtration Rate (eGFR) is calculated using the 2020 CKD-EPI creatinine equation. This equation utilizes serum creatinine, sex, and age as parameters. The creatinine assay has traceable calibration to isotope dilution-mass spectrometry. Refer to KDIGO guidelines for clinical interpretation. In patients with unstable renal function, e.g. those with acute kidney injury, the eGFR may not accurately reflect actual GFR. Performed By: #### 3 084-1, 65244-2, 21134-4, 6-4 ####[facility] LABCLIA [id number] [address] [address] [place] Glucose [Mass/Vol] 138 mg/dL High 74-99 [facility] Comment on above: Order Comment: Abimbola diaz Type: BLOOD SPECIMENOrdering Facility: [facility] Address: [address] [place] [address] Result Comment: The [place] Diabetes Association (ADA) provides guidance for cutoff values for fasting glucose and random glucose. The ADA defines fasting as no caloric intake for at least 8 hours. Fasting plasma glucose results between 100 to 125 mg/dL indicate increased risk for diabetes (prediabetes). Fasting plasma glucose results greater than or equal to 126 mg/dL meet the criteria for diagnosis of diabetes. In the absence of unequivocal hyperglycemia, results should be confirmed by repeat testing. In a patient with classic symptoms of hyperglycemia or hyperglycemic crisis, random plasma glucose results greater than or equal to 200 mg/dL meet the criteria for diagnosis of diabetes. Reference: Standards of Medical Care in Diabetes 2016, [place] Diabetes Association. Diabetes Care. 2016.39(Suppl 1). Performed By: #### 3 084-1, 00093-7, 78567-2, 2275-12 ####[facility] LABCLIA [id number] [address] [address] [place] Phosphate [Mass/Vol] 4.0 mg/dL Normal 2.7-4.8 [facility] Comment on above: Order Comment: Abimbola diaz Type: BLOOD SPECIMENOrdering Facility: [facility] Address: [address] [place] [address] Performed By: #### 3 084-1, 18668-2, 20246-5, 2275-12 ####[facility] LABCLIA [id number] [address] [address] [place] Potassium [Moles/Vol] 4.7 mmol/L Normal 3.7-5.1 [facility] Comment on above: Order Comment: Abimbola diaz Type: BLOOD SPECIMENOrdering Facility: [facility] Address: [address] [place] [address] Performed By: #### 3 084-1, 32906-1, 64908-6, 2275-12 ####[facility] LABCLIA [id number] [address] [address] [place] Sodium [Moles/Vol] 137 mmol/L Normal 136-144 [facility] Comment on above: Order Comment: Abimbola diaz Type: BLOOD SPECIMENOrdering Facility: [facility] Address: [address] [place] [address] Performed By: #### 3 084-1, 08524-8, 73611-4, 2275-12 ####[facility] LABCLIA [id number] [address] [address] [place] Urea nitrogen [Mass/Vol] 18 mg/dL Normal 7-21 [facility] Comment on above: Order Comment: Abimbola diaz Type: BLOOD SPECIMENOrdering Facility: [facility] Address: [address] [place] [address] Performed By: #### 3 084-1, 08788-0, 94849-3, 2276-4 ####[facility] LABCLIA [id number] [address] [place] Urate SerPl-mCncon Urate [Mass/Vol] 3.9 mg/dL Normal 2.5-6.6 [facility] Comment on above: Order Comment: Abimbola diaz Type: BLOOD SPECIMENOrdering Facility: [facility] Address: [address] [place] [address] Performed By: #### 3 084-1, 03258-8, 18835-6, 2276-4 ####[facility] LABCLIA [id number] [address] [place] CNPNon 04-12-2024 CNPN Telephone ([facility]) TIA BLANCO ([id number]) 1955 F Date Time Provider Department 04/12/24 [facility] During your visit today, we recorded the following information about you: Lisa Aparicio RN 04/12/2024 12:38 PM Signed Patient calls and states that she had dropped off blood sugar readings last week. Patient asking if those were received. Patient notified that reading are currently in Dr. Farrar's box to be reviewed. Patient voiced understanding. Patient states that she is going to drop off more blood sugar readings to go along with ones she previously dropped off. OLVIN Whitfield Jazzmin, MA 04/12/2024 4:23 PM Addendum Glucose readings on desk. Will await new glucose readings. LANDEN Rodríguez Barbara, RN 04/19/2024 4:46 PM Addendum Pt calling in wondering if Dr. Farrar has reviewed her blood sugars. She is unsure if she needs to be changing her dosage of insulin. She was just started on insulin on 03/21/24. Pt states she is taking 10 units of the Lantus insulin in the morning around 9 am after breakfast. Per med sig, it says daily at bedtime. Pt states she thought that Dr. Farrar told her it was okay to take in the morning. Update on BS: takes first one as soon as she wakes up so around 630-7 am, then takes the next one around 1230-1 pm with lunch, then one at dinner around 530 pm and last one around 9 pm in the evening. 171 156 169 172 165 160 143 168 142 149 157 172 123 120 167 ---- 154 132 194 173 190 184 163 161 179 210 Pt states she usually has 3 poached eggs and gluten free toast for breakfast. Lunch usually yogurt, chicken sausage and an orange Dinner usually salmon or chicken strips and vegetables. Please review and advise if pt should be taking insulin in the morning or in the evening and if she needs to adjust the dose at all. Notified nurse Lisa to let Dr. Farrar know to review previous blood sugars pt has already brought in too. Preet Farrar DO 04/19/2024 4:49 PM Signed Ok to take the Lantus in the AM or the PM, whichever she will be consistent with daily. Increase dose to 12 units and notify in 2-3 weeks her blood glucose readings. They are improving DO Prabhjot Urban Susan LPN 04/19/2024 4:56 PM Signed Pt. informed. Allergies As of Date: 04/12/2024 Noted Allergy Reaction ASA (SALICYLATES) 01/05/2006 GLUTEN 10/17/2016 16 - Unknown METFORMIN 06/20/2010 Comments: nausea.. can take name brand PREDNISONE 10/02/2012 9 - Itching SULFA (SULFONAMIDE ANTIBIOTICS) 12/29/2005 Date Reviewed: 03/21/2024 Reviewed by: Karen Mejia LPN - Fully Assessed Reason for Visit: Patient Update [1234] Cmt: Blood Sugar Readings Prescriptions as of 04/19/2024 - Insulin Witt, Disposable, (PEN NEEDLE) 29 gauge x 1/2 Use one needle per dose. 1 per day - glimepiride (AMARYL) 2 mg tablet Take 1 tablet by mouth two times a day with meals. - insulin glargine (LANTUS SOLOSTAR U-100 INSULIN) 100 unit/mL (3 mL) Inject 10 Units subcutaneously daily at bedtime. - SITagliptin phosphate (JANUVIA) 100 mg tablet Take 1 tablet by mouth once daily. - pantoprazole DR (PROTONIX) 40 mg tablet Take 1 tablet by mouth daily before breakfast. Take on empty stomach, 1/2 hr before meal. - carvedilol (COREG) 6.25 mg tablet Take 1 tablet by mouth two times a day with meals. - ergocalciferol 50,000 unit capsule (VITAMIN D2, DRISDOL) Take 1 capsule by mouth two times a week. - ARMOUR THYROID 120 mg tablet Take 1 tablet PO daily in AM - blood sugar diagnostic (BLOOD GLUCOSE TEST) test strip Test blood sugar(s) 2 times daily. Dx: Type 2 DM - Uncontrolled E11.65 Insulin: No - atorvastatin (LIPITOR) 80 mg tablet Take 1 tablet by mouth once daily. - clopidogrel (PLAVIX) 75 mg tablet Take 1 tablet by mouth once daily. - spironolactone (ALDACTONE) 25 mg tablet Take 25 mg by mouth once daily. - flash glucose scanning reader (FREESTYLE TARA 2 READER) 1 Device as directed. Type 2 diabetes uncontrolled, no insulin - blood sugar diagnostic (FREESTYLE LITE STRIPS) test strip Test blood sugar(s) 8 times daily. Dx: E11.65. Insulin: No - elderberry fruit 350 mg cap Take 1 capsule by mouth once daily. - ondansetron orally disintegrating (ZOFRAN ODT) 4 mg disintegrating tablet Take 1 tablet by mouth every 8 hours as needed for nausea/vomiting. - Blood Pressure Monitor (BLOOD PRESSURE KIT) 1 Each as directed. Dx: essential hypertension - Lancets lancets Test blood sugar(s) 2 times daily. Dx: Type 2 DM - Uncontrolled E11.65 Insulin: No - Lancets (FREESTYLE LANCETS) lancets Test blood sugar(s) 2 times daily. Dx: 250.02. Insulin: No Problem List As Of Date 04/12/2024 Noted Resolved Diabetes mellitus type 2, controlled, without c*07/13/2006 12/08/2022 BENIGN HYPERTENSION [ (more content not included)... Normal [facility] 03-22-2024 [facility] Telephone ([facility]) TIA BLANCO ([id number]) 1955 F Date Time Provider Department 03/22/24 PREET FARRAR [facility] During your visit today, we recorded the following information about you: Preet Farrar DO 03/22/2024 7:28 AM Signed Please inform patient that her free t4 level is low. TSH is stable. What does of armour thyroid supplement is she taking? Any missed doses? /DO Jose E Urban Lori, LPN 03/22/2024 9:53 AM Signed Pt notified of results, pt states she takes 120mg of armour thyroid 6 days weekly as prescribed. Med list states she is to be taking it daily but she said she was told to take it 6 days/wk because of a low level. States she has not missed any doses. Also lantus insulin was sent to the pharmacy yesterday but there was no Rx for needles, pt states she had 3 needles left from another medication so was able to do first dose. Needs an Rx. Pt uses [facility] in [place]. ALEXIA Manzanares Amanda, RN 03/22/2024 4:37 PM Signed Pt called in and reports she needs the needles that go with her insulin pen. She reports she has one left that came with the Ozempic she is no longer taking. She reports those were Nova fine + 36 g 4 mm 10/13 in. I couldn't find this on our order list. Pt needs needles by tomorrow morning. Preet Farrar DO 03/22/2024 4:46 PM Signed The following approved medication requests have been transmitted electronically. Requested Prescriptions Signed Prescriptions Disp Refills Insulin Witt, Disposable, (PEN NEEDLE) 29 gauge x 1/2 100 Each 11 Sig: Use one needle per dose. 1 per day Authorizing Provider: PREET FARRAR DO Babulski, Amanda, RN 03/22/2024 4:55 PM Signed Please address the thyroid issue. Per previous note, Pt notified of results, pt states she takes 120mg of armour thyroid 6 days weekly as prescribed. Med list states she is to be taking it daily but she said she was told to take it 6 days/wk because of a low level. States she has not missed any doses. . Please call and advise. Preet Farrar DO 03/23/2024 7:54 AM Signed Needs to increase her armor thyroid to 120 mg 7 days a week DO Shyanne Urban Elizabeth, MA 03/23/2024 10:48 AM Signed Patient was notified Donna Novak MA Allergies As of Date: 03/22/2024 Noted Allergy Reaction ASA (SALICYLATES) 01/05/2006 GLUTEN 10/17/2016 16 - Unknown METFORMIN 06/20/2010 Comments: nausea.. can take name brand PREDNISONE 10/02/2012 9 - Itching SULFA (SULFONAMIDE ANTIBIOTICS) 12/29/2005 Date Reviewed: 03/21/2024 Reviewed by: Karen Mejia LPN - Fully Assessed Reason for Visit: Insulin Witt [Other] Order(s):Insulin Witt, Disposable, (PEN NEEDLE) 29 gauge x 1/2 Use one needle per dose. 1 per dayDisp: 100 EachRfl: 11 Prescriptions as of 03/23/2024 - Insulin Witt, Disposable, (PEN NEEDLE) 29 gauge x 1/2 Use one needle per dose. 1 per day - glimepiride (AMARYL) 2 mg tablet Take 1 tablet by mouth two times a day with meals. - insulin glargine (LANTUS SOLOSTAR U-100 INSULIN) 100 unit/mL (3 mL) Inject 10 Units subcutaneously daily at bedtime. - SITagliptin phosphate (JANUVIA) 100 mg tablet Take 1 tablet by mouth once daily. - pantoprazole DR (PROTONIX) 40 mg tablet Take 1 tablet by mouth daily before breakfast. Take on empty stomach, 1/2 hr before meal. - carvedilol (COREG) 6.25 mg tablet Take 1 tablet by mouth two times a day with meals. - ergocalciferol 50,000 unit capsule (VITAMIN D2, DRISDOL) Take 1 capsule by mouth two times a week. - ARMOUR THYROID 120 mg tablet Take 1 tablet PO daily in AM - blood sugar diagnostic (BLOOD GLUCOSE TEST) test strip Test blood sugar(s) 2 times daily. Dx: Type 2 DM - Uncontrolled Insulin: No - atorvastatin (LIPITOR) 80 mg tablet Take 1 tablet by mouth once daily. - clopidogrel (PLAVIX) 75 mg tablet Take 1 tablet by mouth once daily. - spironolactone (ALDACTONE) 25 mg tablet Take 25 mg by mouth once daily. - flash glucose scanning reader (FREESTYLE TARA 2 READER) 1 Device as directed. Type 2 diabetes uncontrolled, no insulin - blood sugar diagnostic (FREESTYLE LITE STRIPS) test strip Test blood sugar(s) 8 times daily. Dx: E11.65. Insulin: No - elderberry fruit 350 mg cap Take 1 capsule by mouth once daily. - ondansetron orally disintegrating (ZOFRAN ODT) 4 mg disintegrating tablet Take 1 tablet by mouth every 8 hours as needed for nausea/vomiting. - Blood Pressure Monitor (BLOOD PRESSURE KIT) 1 Each as directed. Dx: essential hypertension - Lancets lancets Test blood sugar(s) 2 times daily. Dx: Type 2 DM - Uncontrolled 65 Insulin: No - Lancets (FREESTYLE LANCETS) lancets Test blood sugar(s) 2 times daily. Dx: 250.02. Insulin: No Problem List As Of Date 03/22/2024 Noted Resolved Diabetes mellitus type 2, controlled, without c*10/ (more content not included)... Normal [facility] Comprehensive metabolic 2000 panelon 03-22-2024 Albumin [Mass/Vol] 4.3 g/dL 3.9 - 4.9 g/dL [facility] ALP [Catalytic activity/Vol] 99 U/L 34 - 123 U/L [facility] ALT [Catalytic activity/Vol] 16 U/L 7 - 38 U/L [facility] Anion gap [Moles/Vol] 16 mmol/L High 8 - 15 mmol/L [facility] AST [Catalytic activity/Vol] 27 U/L 13 - 35 U/L [facility] Bilirubin [Mass/Vol] 0.4 mg/dL 0.2 - 1.3 mg/dL [facility] Calcium [Mass/Vol] 10.4 mg/dL High 8.5 - 10.2 mg/dL [facility] Chloride [Moles/Vol] 98 mmol/L 98 - 107 mmol/L [facility] CO2 [Moles/Vol] 21 mmol/L Low 22 - 30 mmol/L [facility] Creatinine [Mass/Vol] 0.67 mg/dL 0.58 - 0.96 mg/dL [facility] GFR/1.73 sq M.predicted among non-blacks MDRD (S/P/Bld) [Vol rate/Area] 95 mL/min/{1.73_m2} - PINF [facility] Comment on above: Estimated Glomerular Filtration Rate (eGFR) is calculated using the 2020 CKD-EPI creatinine equation. This equation utilizes serum creatinine, sex, and age as parameters. The creatinine assay has traceable calibration to isotope dilution-mass spectrometry. Refer to KDIGO guidelines for clinical interpretation. In patients with unstable renal function, e.g. those with acute kidney injury, the eGFR may not accurately reflect actual GFR. Glucose [Mass/Vol] 192 mg/dL High 74 - 99 mg/dL [facility] Comment on above: The [place] Diabete s Association (ADA) provides guidance for cutoff values for fasting glucose and random glucose. The ADA defines fasting as no caloric intake for at least 8 hours. Fasting plasma glucose results between 100 to 125 mg/dL indicate increased risk for diabetes (prediabetes). Fasting plasma glucose results greater than or equal to 126 mg/dL meet the criteria for diagnosis of diabetes. In the absence of unequivocal hyperglycemia, results should be confirmed by repeat testing. In a patient with classic symptoms of hyperglycemia or hyperglycemic crisis, random plasma glucose results greater than or equal to 200 mg/dL meet the criteria for diagnosis of diabetes. Reference: Standards of Medical Care in Diabetes 2016, [place] Diabetes Association. Diabetes Care. 2016.39(Suppl 1). Interpretation and review of laboratory results Abnormal [facility] Potassium [Moles/Vol] 4.9 mmol/L 3.7 - 5.1 mmol/L [facility] Protein [Mass/Vol] 7.4 g/dL 6.3 - 8.0 g/dL Cl [facility] Sodium [Moles/Vol] 135 mmol/L Low 136 - 144 mmol/L [facility] Urea nitrogen [Mass/Vol] 17 mg/dL 7 - 21 mg/dL [facility] Free T4 [Mass/Vol]on 024 Interpretation and review of laboratory results Abnormal [facility] No Panel Informationon 03-22 [facility] T4 FREE/FREE THYROXINEon Free T4 [Mass/Vol] 0.7 ng/dL Low 0.9 - 1.7 ng/dL [facility] THYROID STIMULATING HORMONEo n 03-22-2024 TSH Qn 1.890 m[IU]/L [facility] TSH Qnon 03-22-2024 Interpretation and review of laboratory results Normal [facility] CBC W Auto Differential pane l (Bld)on 03-21-2024 Basophils (Bld) [#/Vol] 0.04 10*3/uL [facility] Basophils/100 WBC (Bld) 0.5 % [facility] Differential cell count method Nom (Bld) Auto [facility] Eosinophils (Bld) [#/Vol] 0.18 10*3/uL [facility] Eosinophils/100 WBC (Bld) 2.0 % [facility] Erythrocyte distribution width (RBC) [Ratio] 13.8 % 11.5 - 15.0 % [facility] Hematocrit (Bld) [Volume fraction] 40.9 % 36.0 - 46.0 % [facility] Hemoglobin (Bld) [Mass/Vol] 13.3 g/dL 11.5 - 15.5 g/dL [facility] Immature granulocytes (Bld) [#/Vol] 0.05 10*3/[facility]L [facility] Immature granulocytes/100 WBC (Bld) 0.6 % [facility] Lymphocytes (Bld) [#/Vol] 2.12 10*3/uL [facility] Lymphocytes/100 WBC (Bld) 24.0 % [facility] MCH (RBC) [Entitic mass] 30.9 pg 26.0 - 34.0 pg [facility] MCHC (RBC) [Mass/Vol] 32.5 g/dL 30.5 - 36.0 g/dL [facility] MCV (RBC) [Entitic vol] 94.9 fL 80.0 - 100.0 fL [facility] Monocytes (Bld) [#/Vol] 0.60 10*3/uL [facility] Monocytes/100 WBC (Bld) 6.8 % [facility] Neutrophils (Bld) [#/Vol] 5.85 10*3/uL [facility] Neutrophils/100 WBC (Bld) 66.1 % [facility] Nucleated RBC (Bld) [#/Vol] NINF [facility] Nucleated RBC/100 WBC (Bld) [Ratio] 0.0 % /100 WBC [facility] Platelet mean volume (Bld) [Entitic vol] 9.6 fL 9.0 - 12.7 fL [facility] Platelets (Bld) [#/Vol] 387 10*3/uL [facility] RBC (Bld) [#/Vol] 4.31 10*6/uL 3.90 - 5.20 m/uL [facility] WBC (Bld) [#/Vol] 8.84 10*3/uL [facility] Basophils (Bld) [#/Vol] 0.04 10*3/uL Normal <0.11 [facility] Comment on above: Order Comment: Speci men Type: BLOOD SPECIMENOrdering Facility: [facility] Address: [address] [place] [address] Performed By: #### 5 7021-8 ####[facility] LABCLIA [id number] [place] [address] [place] Basophils/100 WBC (Bld) 0.5 % Normal [facility] Comment on above: Order Comment: Speci men Type: BLOOD SPECIMENOrdering Facility: [facility] Address: [address] [place] [address] Performed By: #### 5 7021-8 ####[facility] LABCLIA [id number] [place] [address] [place] Differential cell count method Nom (Bld) Auto Normal [facility] Comment on above: Order Comment: Speci men Type: BLOOD SPECIMENOrdering Facility: [facility] Address: [address] [place] [address] Performed By: #### 5 7021-8 ####[facility] LABCLIA [id number] [place] [address] [place] Eosinophils (Bld) [#/Vol] 0.18 10*3/uL Normal <0.46 [facility] Comment on above: Order Comment: Speci men Type: BLOOD SPECIMENOrdering Facility: [facility] Address: [address] [place] [address] Performed By: #### 5 7021-8 ####[facility] LABIA [id number] [place] [address] [place] Eosinophils/100 WBC (Bld) 2.0 % Normal [facility] Comment on above: Order Comment: Speci men Type: BLOOD SPECIMENOrdering Facility: [facility] Address: [address] [place] [address] Performed By: #### 5 7021-8 ####[facility] LABIA [id number] [place] [address] [place] Erythrocyte distribution width (RBC) [Ratio] 13.8 % Normal 11.5-15.0 [facility] Comment on above: Order Comment: Speci men Type: BLOOD SPECIMENOrdering Facility: [facility] Address: [address] [place] [address] Performed By: #### 5 7021-8 ####[facility] LABIA [id number] [place] [address] [place] Hematocrit (Bld) [Volume fraction] 40.9 % Normal 36.0-46.0 [facility] Comment on above: Order Comment: Speci men Type: BLOOD SPECIMENOrdering Facility: [facility] Address: [address] [place] [address] Performed By: #### 5 7021-8 ####[facility] LABCLIA [id number] [place] [address] [place] Hemoglobin (Bld) [Mass/Vol] 13.3 g/dL Normal 11.5-15.5 [facility] Comment on above: Order Comment: Speci men Type: BLOOD SPECIMENOrdering Facility: [facility] Address: [address] [place] [address] Performed By: #### 5 7021-8 ####[facility] LABCLIA [id number] [place] [address] [place] Immature granulocytes (Bld) [#/Vol] 0.05 10*3/uL Normal <0.10 [facility] Comment on above: Order Comment: Speci men Type: BLOOD SPECIMENOrdering Facility: [facility] Address: [address] [place] [address] Performed By: #### 5 7021-8 ####[facility] LABIA [id number] [place] [address] [place] Immature granulocytes/100 WBC (Bld) 0.6 % Normal [facility] Comment on above: Order Comment: Speci men Type: BLOOD SPECIMENOrdering Facility: [facility] Address: [address] [place] [address] Performed By: #### 5 7021-8 ####[facility] LABCLIA [id number] [place] [address] [place] Lymphocytes (Bld) [#/Vol] 2.12 10*3/uL Normal 1.00-4.00 [facility] Comment on above: Order Comment: Speci men Type: BLOOD SPECIMENOrdering Facility: [facility] Address: [address] [place] [address] Performed By: #### 5 7021-8 ####[facility] LABIA [id number] [place] [address] [place] Lymphocytes/100 WBC (Bld) 24.0 % Normal [facility] Comment on above: Order Comment: Speci men Type: BLOOD SPECIMENOrdering Facility: [facility] Address: [address] [place] [address] Performed By: #### 5 7021-8 ####[facility] LABIA [id number] [place] [address] [place] MCH (RBC) [Entitic mass] 30.9 pg Normal 26.0-34.0 [facility] Comment on above: Order Comment: Speci men Type: BLOOD SPECIMENOrdering Facility: [facility] Address: [address] [place] [address] Performed By: #### 5 7021-8 ####[facility] LABIA [id number] [place] [address] [place] MCHC (RBC) [Mass/Vol] 32.5 g/dL Normal 30.5-36.0 [facility] Comment on above: Order Comment: Speci men Type: BLOOD SPECIMENOrdering Facility: [facility] Address: [address] [place] [address] Performed By: #### 5 7021-8 ####[facility] LABIA [id number] [place] [address] [place] MCV (RBC) [Entitic vol] 94.9 fL Normal 80.0-100.0 [facility] Comment on above: Order Comment: Speci men Type: BLOOD SPECIMENOrdering Facility: [facility] Address: [address] [place] [address] Performed By: #### 5 7021-8 ####[facility] LABIA [id number] [place] [address] [place] Monocytes (Bld) [#/Vol] 0.60 10*3/uL Normal <0.87 [facility] Comment on above: Order Comment: Speci men Type: BLOOD SPECIMENOrdering Facility: [facility] Address: [address] [place] [address] Performed By: #### 5 7021-8 ####[facility] LABCLIA [id number] [place] [address] [place] Monocytes/100 WBC (Bld) 6.8 % Normal [facility] Comment on above: Order Comment: Speci men Type: BLOOD SPECIMENOrdering Facility: [facility] Address: [address] [place] [address] Performed By: #### 5 7021-8 ####[facility] LABCLIA [id number] [place] [address] [place] Neutrophils (Bld) [#/Vol] 5.85 10*3/uL Normal 1.45-7.50 [facility] Comment on above: Order Comment: Speci men Type: BLOOD SPECIMENOrdering Facility: [facility] Address: [address] [place] [address] Performed By: #### 5 7021-8 ####[facility] LABCLIA [id number] [place] [address] [place] Neutrophils/100 WBC (Bld) 66.1 % Normal [facility] Comment on above: Order Comment: Speci men Type: BLOOD SPECIMENOrdering Facility: [facility] Address: [address] [place] [address] Performed By: #### 5 7021-8 ####[facility] LABCLIA [id number] [place] [address] [place] Nucleated RBC (Bld) [#/Vol] 10*3/uL Normal <0.01 [facility] Comment on above: Order Comment: Speci men Type: BLOOD SPECIMENOrdering Facility: [facility] Address: [address] [place] [address] Performed By: #### 5 7021-8 ####[facility] LABCLIA [id number] [place] [address] [place] Nucleated RBC/100 WBC (Bld) [Ratio] 0.0 /100 WBC Normal [facility] Comment on above: Order Comment: Speci men Type: BLOOD SPECIMENOrdering Facility: [facility] Address: [address] [place] [address] Performed By: #### 5 7021-8 ####[facility] LABCLIA [id number] [place] [address] [place] Platelet mean volume (Bld) [Entitic vol] 9.6 fL Normal 9.0-12.7 [facility] Comment on above: Order Comment: Speci men Type: BLOOD SPECIMENOrdering Facility: [facility] Address: [address] [place] [address] Performed By: #### 5 7021-8 ####[facility] LABCLIA [id number] [place] [address] [place] Platelets (Bld) [#/Vol] 387 10*3/uL Normal 150-400 [facility] Comment on above: Order Comment: Speci men Type: BLOOD SPECIMENOrdering Facility: [facility] Address: [address] [place] [address] Performed By: #### 5 7021-8 ####[facility] LABCLIA [id number] [place] [address] [place] RBC (Bld) [#/Vol] 4.31 10*6/uL Normal 3.90-5.20 [facility] Comment on above: Order Comment: Speci men Type: BLOOD SPECIMENOrdering Facility: [facility] Address: [address] [place] [address] Performed By: #### 5 7021-8 ####[facility] LABCLIA [id number] [place] [address] [place] WBC (Bld) [#/Vol] 8.84 10*3/uL Normal 3.70-11.00 [facility] Comment on above: Order Comment: Speci men Type: BLOOD SPECIMENOrdering Facility: [facility] Address: [address] [place] [address] Performed By: #### 5 7021-8 ####[facility] LABCLIA [id number] [id number] [id number] [place] [facility] CNOVon 03-21-2024 CNOV Office Visit (FAMPWS) TIA BLANCO ([id number]) 1955 F Date Time Provider Department 03/21/24 10:00 [facility] visit today, we recorded the following information about you: Temperature Pulse Respiration Blood pressure 96.7 degrees 64/minute 16/minute 136/80 Weight 73.9 kg Preet Farrar, 03/23/2024 7:37 AM Signed Transitional Care Management TCM Eligibility Documentation The following information was gathered during patient outreach 03/10/2024 Date of Outreach: Outreach Attempt 1: Contact Made Date of Discharge 03/09/2024 Provider Documentation Tia Blanco is a 68 year old female here today for a follow up from recent hospitalization. I have reviewed the patient's hospital course including discharge summary, discharge medications , follow up needs, and labs (notable for hyperglycemia) with the patient and any family members present at today's visit. HPI She feels that she is struggling recently with controlling her blood glucose She was taking ozempic GLP1 agonist and had some SE of nausea and GI upset. When she was seen at [facility] for hyperglycemia and fatigue as well as GI upset and vomiting and diarrhea, she was diagnosed with extreme hyperglycemia in the 400-500s without signs of ketoacidosis. She was also diagnosed with gastroenteritis and acute dehydration. She was treated with IVF as well as zofran and other anti emetic medication. She is still struggling with some hyperglycemia at discharge. Her ozempic was stopped during her hospitalization. She is only taking the glimepiride medication at this time. She didn't tolerate jardiance/farixiga in the past due to extreme symptoms of yeast and vaginitis, recurrently She didn't tolerate metformin in the past due to GI upset and diarrhea She doesn't want to be on multiple insulin injections daily PHYSICAL EXAMINATION BP 136/80 Pulse 64 Temp (!) 35.9 ?C (96.7 ?F) (Left Tympanic) Resp 16 Wt 73.9 kg (163 lb) BMI 31.83 kg/m? GENERAL: well appearing, alert, in no acute distress and tearful and anxious appearing in the office today HEART: regular rate and rhythm. No murmur, rubs or gallops. LUNGS: clear to auscultation, no wheezing, rhonchi, or crackles ABDOMEN: soft, non-tender, non-distended, no masses or organomegaly EXTREMITIES: no lower extremity edema. No skin discoloration. ASSESSMENT/PLAN: 1. Gastroenteritis - ICD9: 558.9, ICD10: K52.9 (primary diagnosis) Recheck labs Symptoms have resolved - COMPLETE BLOOD COUNT AND DIFFERENTIAL - COMPREHENSIVE METABOLIC PANEL 2. Uncontrolled type 2 diabetes mellitus with hyperglycemia (HCC) - ICD9: 250.02, ICD10: E11.65 - Uncontrolled - Start sitagliptin (Januvia) - Start Insulin glargine (Lantus/Basaglar/Jb chet)- she will call office in 1-2 weeks with blood glucose readings to titrate up dose as needed - GLIMEPIRIDE 2 MG TABLET - LANTUS SOLOSTAR U-100 INSULIN 100 UNIT/ML (3 ML) SUBCUTANEOUS PEN - SITAGLIPTIN PHOSPHATE 100 MG TABLET - CONSULT TO ENDOCRINOLOGY 3. Acquired hypothyroidism - ICD9: 244.9, ICD10: E03.9 - Instructed patient on importance of taking on an empty stomach either first thing in the morning or at bedtime. - THYROID STIMULATING HORMONE - T4 FREE/FREE THYROXINE 4. Obesity, Class I, BMI 30-34.9 - ICD9: 278.00, ICD10: E66.9 - Lengthy discussion in office today regarding diet and exercise. Discussed use of small plate to eat meals from, drink 1 glass of water 10-15 minutes prior to eating meal, drink 8 glasses of water daily, eat fresh fruit and vegetable during meal first then lean protein such as grilled/baked chicken breast or fish, limit carbohydrate intake (less pasta, breads, rice and snack foods) as well as limiting sugars (desserts etc). Important to count / track your calories and exercise as well. 5. Acute dehydration - ICD9: 276.51, ICD10: E86.0 Resolved with IVF and electrolytes 6. Situational anxiety - ICD9: 300.09, ICD10: F41.8 Stressed currently with her hyperglycemia Overall she is managing myla Farrar DO Allergies As of Date: 03/21/2024 Noted Allergy Reaction ASA (SALICYLATES) 01/05/2006 GLUTEN 10/17/2016 16 - Unknown METFORMIN 06/20/2010 Comments: nausea.. can take name brand PREDNISONE 10/02/2012 9 - Itching SULFA (SULFONAMIDE ANTIBIOTICS) 12/29/2005 Date Reviewed: 03/21/2024 Reviewed by: Karen Mejia LPN - Fully Assessed Reason for Visit: Transition Of Care [4074] Primary Visit Diagnosis:Gastroente ritis [K52.9] Other Visit Diagnoses:Uncontroll ed type 2 diabetes mellitus with hyperglycemia (HCC) [E11.65] Acquired hypothyroidism [E03.9] Obesity, Class I, BMI 30-34.9 [E66.9] Acute dehydration [E86.0] Situational anxiety [F41.8] Order(s):glimepiride (AMARYL) 2 mg tabletTake 1 tablet by mouth two times a day with meals.Disp: 180 tabletRfl: 1 i (more content not included)... Normal [facility] Comprehensive metabolic 2000 panelon 03-21-2024 Albumin [Mass/Vol] 4.3 g/dL Normal 3.9-4.9 [facility] Comment on above: Order Comment: Speci men Type: BLOOD SPECIMENOrdering Facility: [facility] Address: [address] [place] [address] Performed By: #### 2 4323-8, 3024-7, 3016-3 ####[facility] LABCLIA [id number] [facility] [id number] [address] [place] ALP [Catalytic activity/Vol] 99 U/L Normal 34-123 [facility] Comment on above: Order Comment: Speci men Type: BLOOD SPECIMENOrdering Facility: [facility] Address: [address] [place] [address] Performed By: #### 2 4323-8, 3024-7, 6-3 ####[facility] LABCLIA [id number] [place] [address] [place] ALT [Catalytic activity/Vol] 16 U/L Normal 7-38 [facility] Comment on above: Order Comment: Speci men Type: BLOOD SPECIMENOrdering Facility: [facility] Address: [address] [place] [address] Performed By: #### 2 4323-8, 3023-7, 3015-3 ####[facility] LABCLIA [id number] [place] [address] [place] Anion gap [Moles/Vol] 16 mmol/L High 8-15 [facility] Comment on above: Order Comment: Speci men Type: BLOOD SPECIMENOrdering Facility: [facility] Address: [address] [place] [address] Performed By: #### 2 4323-8, 7, 3 ####[facility] LABCLIA [id number] [place] [address] [place] AST [Catalytic activity/Vol] 27 U/L Normal 13-35 [facility] Comment on above: Order Comment: Speci men Type: BLOOD SPECIMENOrdering Facility: [facility] Address: [address] [place] [address] Performed By: #### 2 4323-8, 3023-7, 3015-3 ####[facility] LABCLIA [id number] [place] [id number] [place] Bilirubin [Mass/Vol] 0.4 mg/dL Normal 0.2-1.3 [facility] Comment on above: Order Comment: Speci men Type: BLOOD SPECIMENOrdering Facility: [facility] Address: [address] [place] [address] Performed By: #### 2 4323-8, 3024-7, 3016-3 ####[facility] LABCLIA [id number] [address] [address] [place] Calcium [Mass/Vol] 10.4 mg/dL High 8.5-10.2 [facility] Comment on above: Order Comment: Speci men Type: BLOOD SPECIMENOrdering Facility: [facility] Address: [address] [place] [address] Performed By: #### 2 4323-8, 3023-7, 6-3 ####[facility] LABCLIA [id number] [address] [address] [place] Chloride [Moles/Vol] 98 mmol/L Normal 98-107 [facility] Comment on above: Order Comment: Speci men Type: BLOOD SPECIMENOrdering Facility: [facility] Address: [address] [place] [address] Performed By: #### 2 4323-8, 3023-7, 6-3 ####[facility] LABCLIA [id number] [address] [address] [place] CO2 [Moles/Vol] 21 mmol/L Low 22-30 [facility] Comment on above: Order Comment: Speci men Type: BLOOD SPECIMENOrdering Facility: [facility] Address: [address] [place] [address] Performed By: #### 2 4323-8, 302-7, 6-3 ####[facility] LABCLIA [id number] [address] [address] [place] Creatinine [Mass/Vol] 0.67 mg/dL Normal 0.58-0.96 [facility] Comment on above: Order Comment: Speci men Type: BLOOD SPECIMENOrdering Facility: [facility] Address: [address] [place], [place] [id number] Performed By: #### 2 4323-8, 3024-7, 3016-3 ####[facility] LABIA [id number] [place] [address] [place] Creatinine and Glomerular filtration rate.predicted panel (S/P/Bld) 95 mL/min/1.73m??? Normal >=60 [facility] Comment on above: Order Comment: Abimbola diaz Type: BLOOD SPECIMENOrdering Facility: [facility] Address: [address] [place] [address] Result Comment: Ana Paula mated Glomerular Filtration Rate (eGFR) is calculated using the 2020 CKD-EPI creatinine equation. This equation utilizes serum creatinine, sex, and age as parameters. The creatinine assay has traceable calibration to isotope dilution-mass spectrometry. Refer to KDIGO guidelines for clinical interpretation. In patients with unstable renal function, e.g. those with acute kidney injury, the eGFR may not accurately reflect actual GFR. Performed By: #### 2 4323-8, 3024-7, 3016-3 ####[facility] LABIA [id number] [place] [id number] [place] Glucose [Mass/Vol] 192 mg/dL High 74-99 [facility] Comment on above: Order Comment: Abimbola diaz Type: BLOOD SPECIMENOrdering Facility: [facility] Address: [address] [place] [address] Result Comment: The [place] Diabetes Association (ADA) provides guidance for cutoff values for fasting glucose and random glucose. The ADA defines fasting as no caloric intake for at least 8 hours. Fasting plasma glucose results between 100 to 125 mg/dL indicate increased risk for diabetes (prediabetes). Fasting plasma glucose results greater than or equal to 126 mg/dL meet the criteria for diagnosis of diabetes. In the absence of unequivocal hyperglycemia, results should be confirmed by repeat testing. In a patient with classic symptoms of hyperglycemia or hyperglycemic crisis, random plasma glucose results greater than or equal to 200 mg/dL meet the criteria for diagnosis of diabetes. Reference: Standards of Medical Care in Diabetes 2016, [place] Diabetes Association. Diabetes Care. 2016.39(Suppl 1). Performed By: #### 2 4323-8, 3023-7, 6-3 ####[facility] LABCLIA [id number] [address] [address] [place] Potassium [Moles/Vol] 4.9 mmol/L Normal 3.7-5.1 [facility] Comment on above: Order Comment: Speci men Type: BLOOD SPECIMENOrdering Facility: [facility] Address: [address] [place] [address] Performed By: #### 2 4323-8, 3023-7, 3015-3 ####[facility] LABCLIA [id number] [place] [address] [place] Protein [Mass/Vol] 7.4 g/dL Normal 6.3-8.0 [facility] Comment on above: Order Comment: Speci men Type: BLOOD SPECIMENOrdering Facility: [facility] Address: [address] [place] [address] Performed By: #### 2 4323-8, 3024-03, 3 ####[facility] LABIA [id number] [place] [address] [place] Sodium [Moles/Vol] 135 mmol/L Low 136-144 [facility] Comment on above: Order Comment: Speci men Type: BLOOD SPECIMENOrdering Facility: [facility] Address: [address] [place] [address] Performed By: #### 2 4323-8, 3024-03, 3 ####[facility] LABIA [id number] [address] [address] [place] Urea nitrogen [Mass/Vol] 17 mg/dL Normal 7-21 [facility] Comment on above: Order Comment: Speci men Type: BLOOD SPECIMENOrdering Facility: [facility] Address: [address] [place], [place] [address] Performed By: #### 2 4323-8, 3023-7, 3015-3 ####[facility] LABIA [id number] [place] [address] [place] T4 Free SerPl-mCncon 024 Free T4 [Mass/Vol] 0.7 ng/dL Low 0.9-1.7 [facility] Comment on above: Order Comment: Speci men Type: BLOOD SPECIMENOrdering Facility: [facility] Address: [address] [place] [address] Performed By: #### 2 4323-8, 3024-7, 3016-3 ####[facility] LABIA [id number] [place] [address] [place] TSH SerPl-aCncon 03-21-2024 TSH Qn 1.890 m[IU]/L Normal 0.270-4.200 [facility] Comment on above: Order Comment: Speci men Type: BLOOD SPECIMENOrdering Facility: [facility] Address: [address] [place] [address] Performed By: #### 2 4323-8, 3024-7, 3016-3 ####[facility] [id number] [address] [place] CNPMarii 02-[facility] BL[facility] ([id number]) 1955 F Date Time Provider Department 02/15/24 JACQUELINE CANDELARIO [facility] During your visit today, we recorded the following information about you: Emily Osei RN 02/15/2024 1:52 PM Signed Tia Blanco is a 68 year old female who reports glucose readings as noted. Meal # 1 = Breakfast or first meal of day, Meal # 2 = Lunch, # 3 = Evening meal DATE 02/14 02/13 02/12 02/11 02/10 Fasting 190 175 135 155 163 Post Meal #1 206 225 216 Before Meal 212 159 134 Post Meal # 2 190 165 Before Meal 149 147 Post Meal # 3 Bedtime 168 182 182 Other Any low blood sugars during this period of reporting No Patient's diabetes medications as follows: Taking Ozempic as prescribed. Patient asking if there are any dietary adjustments she needs to make? She is not eating bedtime snacks due to high blood sugar readings. Asking for dietary recommendations. Emily Osei, Jacqueline Cordon APRN.DEREK 02/15/2024 4:29 PM Signed No dietary restrictions needed -- she eats very healthy to begin with. Elevation after meals is expected and normal. No concerns. Thank you, Jacqueline Candelario APRN.Emily Victor RN 02/15/2024 4:33 PM Signed Spoke with patient. Given message from provider's office. Patient verbalizes understanding. Emily Osei RN Allergies As of Date: 02/15/2024 Noted Allergy Reaction ASA (SALICYLATES) 01/05/2006 GLUTEN 10/17/2016 16 - Unknown METFORMIN 06/20/2010 Comments: nausea.. can take name brand PREDNISONE 10/02/2012 9 - Itching SULFA (SULFONAMIDE ANTIBIOTICS) 12/29/2005 Date Reviewed: 01/27/2024 Reviewed by: Jacqueline Candelario APRN.TECHNICAL COMMUNICATOR - Fully Assessed Reason for Visit: Blood Sugar Readings [Other] Prescriptions as of 02/15/2024 - ergocalciferol 50,000 unit capsule (VITAMIN D2, DRISDOL) Take 1 capsule by mouth two times a week. - semaglutide (OZEMPIC) 2 mg/dose (8 mg/3 mL) pen injector Inject 2 mg subcutaneously one time a week. - ARMOUR THYROID 120 mg tablet Take 1 tablet PO daily in AM - blood sugar diagnostic (BLOOD GLUCOSE TEST) test strip Test blood sugar(s) 2 times daily. Dx: Type 2 DM - Uncontrolled E11.65 Insulin: No - atorvastatin (LIPITOR) 80 mg tablet Take 1 tablet by mouth once daily. - clopidogrel (PLAVIX) 75 mg tablet Take 1 tablet by mouth once daily. - busPIRone (BUSPAR) 5 mg tablet Take 1 tablet by mouth three times a day as needed. - spironolactone (ALDACTONE) 25 mg tablet Take 25 mg by mouth once daily. - carvedilol (COREG) 6.25 mg tablet Take 6.25 mg by mouth two times a day with meals. - flash glucose scanning reader (FREESTYLE TARA 2 READER) 1 Device as directed. Type 2 diabetes uncontrolled, no insulin - blood sugar diagnostic (FREESTYLE LITE STRIPS) test strip Test blood sugar(s) 8 times daily. Dx: E11.65. Insulin: No - elderberry fruit 350 mg cap Take 1 capsule by mouth once daily. - ondansetron orally disintegrating (ZOFRAN ODT) 4 mg disintegrating tablet Take 1 tablet by mouth every 8 hours as needed for nausea/vomiting. - Blood Pressure Monitor (BLOOD PRESSURE KIT) 1 Each as directed. Dx: essential hypertension - Lancets lancets Test blood sugar(s) 2 times daily. Dx: Type 2 DM - Uncontrolled E11.65 Insulin: No - Lancets (FREESTYLE LANCETS) lancets Test blood sugar(s) 2 times daily. Dx: 250.02. Insulin: No Problem List As Of Date 02/15/2024 Noted Resolved Diabetes mellitus type 2, controlled, without c*07/13/2006 12/08/2022 BENIGN HYPERTENSION [I10] 07/13/2006 ADJUSTMENT DISORDER WITH DEPRESSED MOOD [F43.21]07/13/2006 ANXIETY STATE NOS [F41.1] 07/13/2006 Hypothyroidism [E03.9] 07/13/2006 Abdominal pain, right upper quadrant [R10.11] 02/16/2007 12/08/2022 Tobacco Use Disorder [F17.200] 10/29/2009 Celiac disease [K90.0] 11/06/2009 Fatigue [R53.83] 09/07/2017 Medial epicondylitis, left [M77.02] 09/07/2017 Controlled type 2 diabetes mellitus without com*10/12/2018 12/08/2022 Situational anxiety [F41.8] 10/12/2018 Dyslipidemia [E78.5] 10/12/2018 Aortic stenosis, moderate [I35.0] 08/2019 Uncontrolled type 2 diabetes mellitus with hype*05/21/2020 Palpitations [R00.2] 02/19/2022 Uncontrolled hypertension [I10] 02/19/2022 Vitamin B12 deficiency [E53.8] 09/10/2022 Vitamin D deficiency [E55.9] 09/10/2022 History of tobacco abuse [Z87.891] 03/18/2023 Disease of spinal cord (HCC) [G95.9] 12/09/2023 Renal artery stenosis (HCC) [I70.1] 12/09/2023 Other ulcerative colitis without complications *12/09/2023 Diabetes mellitus (HCC) [E11.9] 12/09/2023 Hyperlipidemia, mixed [E78.2] 12/09/2023 Nonrheumatic aortic valve stenosis [I35.0] 12/09/2023 Encounter Status:Closed by EMILY OSEI on 02/15/24 [facility] YVANOVangela 01-27-2024 CN Office Visit (FAMWS) TIA BLANCO ([id number]) 1955 F Date Time Provider Department 01/27/24 11:00 AM [facility] During your visit today, we recorded the following information about you: Pulse Respiration Blood pressure Weight 64/minute 16/minute 124/68 74.7 kg Jacqueline Candelario APRN.TECHNICAL COMMUNICATOR 01/27/2024 11:52 AM Signed Chief Complaint Patient presents with: follow up on b/s: States thinks yeast infection back which is a large side effect of Jardiance. States not going to keep going through this HPI Tia Walker Francis is a 68 year old female who presents here today for Above Complaints. Tia is an established patient of Dr. Charan DO and myself. Concerns today.. DM -- Stable with hgA1c 6.5, 3 weeks ago. Current regimen: jardiance 10 mg daily and ozempic 1 mg weekly. Current issue -- continues to get yeast infection over and over again. Has taken diflucan which helps but then symptoms come right back. Has been on metformin but caused itchiness and GI upset so this was discontinued. Not interested in trying this again. Pt is on a very strict diet: gluten free, no carbs, mainly protein and green veggie diet. Pt very anxious about blood sugar readings -- checking 3 x per day. Has not tried buspar regimen yet to help with anxiety. Last 14 Encounter BP Readings: Date: BP: 01/27/2024 124/68 01/06/2024 130/64 01/02/2024 132/82 12/09/2023 130/80 11/19/2023 100/60 11/13/2023 160/70 10/29/2023 150/62 09/14/2023 124/80 07/15/2023 126/74 06/26/2023 122/60 06/19/2023 118/68 04/30/2023 132/82 03/18/2023 130/80 12/10/2022 138/80 Past medical history, appointments, medications, allergies reviewed. Previous Medical History PAST MEDICAL HISTORY Diagnosis Date Aortic stenosis, moderate 08/2019 Benign hypertensive heart disease Celiac disease Diabetes mellitus without mention of complication Diabetes mellitus Fatty liver Grave's disease IBS (irritable bowel syndrome) Medical marijuana use has card Ulcerative colitis, unspecified Vitamin D deficiency Previous Surgical History PAST SURGICAL HISTORY Procedure Laterality Date COLONOSCOPY FLX DX W/COLLJ SPEC WHEN PFRMD 09/09/2013 Colonoscopy ESOPHAGOGASTRODUODEN OSCOPY TRANSORAL DIAGNOSTIC 09/09/2013 EGD INFUSE RADIOACTIVE MATERIALS Iodine ablation for Grave's disease LAP UMBILICAL HERNIA REPAIR 02/17/2000 Lap umbilical hernia with a 19cm mesh LAPAROSCOPY SURG CHOLECYSTECTOMY 03/01/2007 Lap Mary with visiport RUQ insertion LIG/TRNSXJ FLP TUBE ABDL/VAG APPR UNI/BI Tubal ligation Family History FAMILY HISTORY Problem Relation Age of Onset Cervical Cancer Sister Diabetes Father Psychiatry Mother Hypertension Father Heart Mother Heart Father Alzheimer's Disease Mother Breast Cancer Sister Patient Allergies ALLERGIES Allergen Reactions Asa [Salicylates] Gluten Unknown Metformin nausea.. can take name brand Prednisone Itching Sulfa (Sulfonamide * Current Medications Current Outpatient Medications on File Prior to Visit Medication Sig ARMOUR THYROID 120 mg tablet Take 1 tablet PO daily in AM semaglutide (OZEMPIC) 1 mg/dose (4 mg/3 mL) pen Inject 1 mg subcutaneously one time a week. blood sugar diagnostic (BLOOD GLUCOSE TEST) test strip Test blood sugar(s) 2 times daily. Dx: Type 2 DM - Uncontrolled E11.65 Insulin: No empagliflozin (JARDIANCE) 10 mg tablet Take 1 tablet by mouth daily with breakfast. Take 1 tablet once daily in the morning atorvastatin (LIPITOR) 80 mg tablet Take 1 tablet by mouth once daily. clopidogrel (PLAVIX) 75 mg tablet Take 1 tablet by mouth once daily. busPIRone (BUSPAR) 5 mg tablet Take 1 tablet by mouth three times a day as needed. spironolactone (ALDACTONE) 25 mg tablet Take 25 mg by mouth once daily. carvedilol (COREG) 6.25 mg tablet Take 6.25 mg by mouth two times a day with meals. blood sugar diagnostic (FREESTYLE LITE STRIPS) test strip Test blood sugar(s) 8 times daily. Dx: E11.65. Insulin: No elderberry fruit 350 mg cap Take 1 capsule by mouth once daily. ondansetron orally disintegrating (ZOFRAN ODT) 4 mg disintegrating tablet Take 1 tablet by mouth every 8 hours as needed for nausea/vomiting. ergocalciferol 50,000 unit capsule (VITAMIN D2, DRISDOL) Take 1 capsule by mouth two times a week. Blood Pressure Monitor (BLOOD PRESSURE KIT) 1 Each as directed. Dx: essential hypertension Lancets lancets Test blood sugar(s) 2 times daily. Dx: Type 2 DM - Uncontrolled E11.65 Insulin: No flash glucose scanning reader (FREESTYLE TARA 2 READER) 1 Device as directed. Type 2 diabetes uncontrolled, no insulin (Patient not taking: Reported on 01/06/2024) Lancets (FREESTYLE LANCETS) lancets Test blood sugar(s) 2 times daily. Dx: 250.02. Insulin: No (Patient not taking: Reported on 01/06/2024) No current facility-administere d medications on fi (more content not included)... Normal [facility] [place]en 01-12-2024 AILEEN Telephone (FAMPWS) TIA BLANCO ([id number]) 1955 F Date Time Provider Department 01/12/24 FARRAR PREET Keshia ALVES During your visit today, we recorded the following information about you: Kerry Nevarez LPN 01/12/2024 3:20 PM Signed Patient calling she was treated for yeast infection on 01/01 from [facility]. Now she has same symptoms itching and white vaginal drainage. Patient now wondering if it is from taking Jardiance. Patient said her blood sugars have been higher in the morning at times. She said she is taking Ozempic and Jardiance. Patient uses [facility] for her pharmacy. Please advise Tahira Stern LPN 01/13/2024 2:09 PM Signed Patient calling again, asking if she should stop the Jardiance because she does not want chronic yeast infections. Please advise. Jacqueline Candelario APRN.DEREK 01/13/2024 2:35 PM Signed Yes, this can likely be due to Jardiance regimen. Go ahead and take diflucan to treat yeast infection this time and if symptoms return we will switch diabetes regimen at our next appointment. We will discuss options. Thank you, Jacqueline Candelario APRN.Gini Magdaleno LPN 01/13/2024 2:39 PM Signed Left message to return call. Kerry Nevarez LPN 01/13/2024 2:49 PM Signed Patient returned call and went over notes below from Jacqueline Candelario FOREIGN LANGUAGE INSTRUCTOR with understanding. Aware rx sent to pharmacy. Allergies As of Date: 01/12/2024 Noted Allergy Reaction ASA (SALICYLATES) 01/05/2006 GLUTEN 10/17/2016 16 - Unknown METFORMIN 06/20/2010 Comments: nausea.. can take name brand PREDNISONE 10/02/2012 9 - Itching SULFA (SULFONAMIDE ANTIBIOTICS) 12/29/2005 Date Reviewed: 01/06/2024 Reviewed by: Jacqueline Candelario APRN.TECHNICAL COMMUNICATOR - Fully Assessed Reason for Visit: Medication Problem [65] yeast infection again [Other] Order(s):fluconazole (DIFLUCAN) 150 mg tabletTake 1 tablet by mouth one time only for 1 dose. Repeat in 3 days as needed.Disp: 2 tabletRfl: 0 Prescriptions as of 01/13/2024 - fluconazole (DIFLUCAN) 150 mg tablet Take 1 tablet by mouth one time only for 1 dose. Repeat in 3 days as needed. - ARMOUR THYROID 120 mg tablet Take 1 tablet PO daily in AM - semaglutide (OZEMPIC) 1 mg/dose (4 mg/3 mL) pen Inject 1 mg subcutaneously one time a week. - blood sugar diagnostic (BLOOD GLUCOSE TEST) test strip Test blood sugar(s) 2 times daily. Dx: Type 2 DM - Uncontrolled E11.65 Insulin: No - empagliflozin (JARDIANCE) 10 mg tablet Take 1 tablet by mouth daily with breakfast. Take 1 tablet once daily in the morning - atorvastatin (LIPITOR) 80 mg tablet Take 1 tablet by mouth once daily. - clopidogrel (PLAVIX) 75 mg tablet Take 1 tablet by mouth once daily. - busPIRone (BUSPAR) 5 mg tablet Take 1 tablet by mouth three times a day as needed. - spironolactone (ALDACTONE) 25 mg tablet Take 25 mg by mouth once daily. - carvedilol (COREG) 6.25 mg tablet Take 6.25 mg by mouth two times a day with meals. - flash glucose scanning reader (FREESTYLE TARA 2 READER) 1 Device as directed. Type 2 diabetes uncontrolled, no insulin - blood sugar diagnostic (FREESTYLE LITE STRIPS) test strip Test blood sugar(s) 8 times daily. Dx: E11.65. Insulin: No - elderberry fruit 350 mg cap Take 1 capsule by mouth once daily. - ondansetron orally disintegrating (ZOFRAN ODT) 4 mg disintegrating tablet Take 1 tablet by mouth every 8 hours as needed for nausea/vomiting. - ergocalciferol 50,000 unit capsule (VITAMIN D2, DRISDOL) Take 1 capsule by mouth two times a week. - Blood Pressure Monitor (BLOOD PRESSURE KIT) 1 Each as directed. Dx: essential hypertension - Lancets lancets Test blood sugar(s) 2 times daily. Dx: Type 2 DM - Uncontrolled E11.65 Insulin: No - Lancets (FREESTYLE LANCETS) lancets Test blood sugar(s) 2 times daily. Dx: 250.02. Insulin: No Problem List As Of Date 01/12/2024 Noted Resolved Diabetes mellitus type 2, controlled, without c*07/13/2006 12/08/2022 BENIGN HYPERTENSION [I10] 07/13/2006 ADJUSTMENT DISORDER WITH DEPRESSED MOOD [F43.21]07/13/2006 ANXIETY STATE NOS [F41.1] 07/13/2006 Hypothyroidism [E03.9] 07/13/2006 Abdominal pain, right upper quadrant [R10.11] 02/16/2007 12/08/2022 Tobacco Use Disorder [F17.200] 10/29/2009 Celiac disease [K90.0] 11/06/2009 Fatigue [R53.83] 09/07/2017 Medial epicondylitis, left [M77.02] 09/07/2017 Controlled type 2 diabetes mellitus without com*10/12/2018 12/08/2022 Situational anxiety [F41.8] 10/12/2018 Dyslipidemia [E78.5] 10/12/2018 Aortic stenosis, moderate [I35.0] 08/2019 Uncontrolled type 2 diabetes mellitus with hype*05/21/2020 Palpitations [R00.2] 02/19/2022 Uncontrolled hypertension [I10] 02/19/2022 Vitamin B12 deficiency [E53.8] 09/10/2022 Vitamin D deficiency [E55.9] 09/10/2022 History of tobacco abuse [Z87.891] 03/18/2023 Disease of spinal cord (HCC) [G95.9] 12/09/2023 Renal artery stenosis (HCC) [I (more content not included)... Normal [facility] CNOVon 01-06-2024 CNOV Office Visit (FAMPWS) TIA BLANCO ([id number]) 1955 F Date Time Provider Department 01/06/24 11:00 AM CANDELARIO, JACQUELINE FAMPWS During your visit today, we recorded the following information about you: Pulse Respiration Blood pressure Weight 62/minute 16/minute 130/64 74.4 kg Jacqueline Candelario APRN.CNP 01/06/2024 12:13 PM Signed Chief Complaint Patient presents with: blood sugars up and down: States does not know how to eat keeps going up after eating. HPI Tia Blanco is a 68 year old female who presents here today for Above Complaints. Tia is an established patient of Dr. Farrar, DO and myself. Concerns today... Per TE x2: Patient calling to state she is having difficulty with increased blood sugars despite following a strict diet. Patient reports her blood sugars have been varying from 140-180 in last 24 hours after eating only eggs, 1 piece of gluten free bread, half an orange, chicken sausage, salmon and vegetables. Reports she was on Glimepiride and Ozempic but was recently changed to Jardiance and Ozempic. Asking if Dr. Farrar could advise if she should be eating carbohydrates or not. This nurse encouraged pt to consider speaking with a keyliner/consult ant to discuss diet management, if agreeable. Patient would rather hold off on speaking with a specialist as of this time. Asking if Dr. Farrar would be able to advise her at this time? Thank you. Pt called to check status and message below. Pt wanted to stress that her blood sugars are higher that she likes. When pt was on a no carb diet her blood sugars were good. Pt not sure what the plan is for her with medication Ozempic and Jardiance. Pt made aware provider has been out of the office and will return next week. Pt asking to have Dr. Farrar look at this next week and advise her. Pt was then seen in [facility] care on 01/01 d/t vaginal itching. UTI and STD testing completed. Treated with Diflucan d/t + white discharge . Called with results the next day of + yeast and BV. Pt was also given flagyl regimen at that point. During this appointment, POC glucose was taken and UA showed significant glucose in urine. Latest Ref Rng 01/02/2024 GLUCOSE UA (POCT) Negative mg/dL >=1000 ! BILIRUBIN UA (POCT) Negative Negative KETONE UA (POCT) Negative mg/dL Negative SPECIFIC GRAVITY UA (POCT) 1.005 - 1.030 1.010 HEMOGLOBIN/BLOOD UA (POCT) Negative Small ! PH UA (POCT) 4.5 - 8.0 5.0 PROTEIN UA (POCT) Negative mg/dL Negative UROBILINOGEN UA (POCT) Normal E.U./dL 0.2 NITRITE UA (POCT) Negative Negative LEUKOCYTES UA (POCT) Negative Negative COLOR UA (POCT) Yellow CLARITY UA (POCT) Clear Culture <10,000 CFU/ml Lactose positive gram negative bacilli ! Glucose, Point of Care 74 - 99 mg/dL 140 ! Today in office... Pt reports the same concerns at telephone encounter. Pt reports fasting glucose to be around 120-140 After eating breakfast, will increase into the 200s x hours. Pt feels sick to her stomach when levels are this high. DM regimen switched recently from amaryl to jardiance at recent visit in November. Pt feels this switch is not working as well for her. Prior amaryl regimen was 2 mg BID Last hgA1c was 6.4 in October. Latest Ref Rng 09/08/2023 11/13/2023 11/16/2023 Hemoglobin A1C 4.3 - 5.6 % 6.4 (H) 6.5 (H) 6.4 (H) Estimated Average Glucose mg/dL 137 140 137 Current regimen: ozempic 1 mg weekly and jardiance 10 mg daily. Pt checking blood sugar 6-8 times per day. Does not qualify for continuous glucose meter d/t diabetes so well controlled. Pt never took buspar as prescribed prior for anxiety. Does not want to rely on medication like this. Pt agrees anxiety makes her check blood sugar so often. Past medical history, appointments, medications, allergies reviewed. Previous Medical History PAST MEDICAL HISTORY Diagnosis Date Aortic stenosis, moderate 08/2019 Benign hypertensive heart disease Celiac disease Diabetes mellitus without mention of complication Diabetes mellitus Fatty liver Grave's disease IBS (irritable bowel syndrome) Medical marijuana use has card Ulcerative colitis, unspecified Vitamin D deficiency Previous Surgical History PAST SURGICAL HISTORY Procedure Laterality Date COLONOSCOPY FLX DX W/COLLJ SPEC WHEN PFRMD 09/09/2013 Colonoscopy ESOPHAGOGASTRODUODEN OSCOPY TRANSORAL DIAGNOSTIC 09/09/2013 EGD INFUSE RADIOACTIVE MATERIALS Iodine ablation for Grave's disease LAP UMBILICAL HERNIA REPAIR 02/17/2000 Lap umbilical hernia with a 19cm mesh LAPAROSCOPY SURG CHOLECYSTECTOMY 03/01/2007 Lap Mary with visiport RUQ insertion LIG/TRNSXJ FLP TUBE ABDL/VAG APPR UNI/BI Tubal ligation Family History FAMILY HISTORY Problem Relation Age of Onset Cervical Cancer Sister Diabetes Father Psychiatry Mother Hypertension Father Heart Mother Heart Father Alzheimer (more content not included)... Normal [facility] HEMOGLOBIN A1C (POC)on 01-05 HbA1c (Bld) [Mass fraction] 6.5 % Abnormal 4.3 - 5.6 % [facility] CNPNon 01-03-2024 CNPN Telephone (UCWSTR) TIA BLANCO ([id number]) 1955 F Date Time Provider Department 01/03/24 ALTAGRACIA WELCH [facility] During your visit today, we recorded the following information about you: Altagracia Welch APRN.TECHNICAL COMMUNICATOR 01/03/2024 8:06 AM Signed Patient identified by name and date of . Patient advised of + yeast and BV test result. She was prescribed diflucan at yesterday's visit. I sent Rx for Flagyl to her pharmacy today. Altagracia Welch APRN.TECHNICAL COMMUNICATOR Allergies As of Date: 01/03/2024 Noted Allergy Reaction ASA (SALICYLATES) 01/05/2006 GLUTEN 10/17/2016 16 - Unknown METFORMIN 06/20/2010 Comments: nausea.. can take name brand PREDNISONE 10/02/2012 9 - Itching SULFA (SULFONAMIDE ANTIBIOTICS) 12/29/2005 Date Reviewed: 01/02/2024 Reviewed by: Susan Mares MA - Fully Assessed Reason for Visit: Results [95] Primary Visit Diagnosis:BV (bacterial vaginosis) [N76.0, B96.89] Order(s):metroNIDAZO LE (FLAGYL) 500 mg tabletTake 1 tablet by mouth two times a day for 7 days.Disp: 14 tabletRfl: 0 Prescriptions as of 01/03/2024 - metroNIDAZOLE (FLAGYL) 500 mg tablet Take 1 tablet by mouth two times a day for 7 days. - fluconazole (DIFLUCAN) 150 mg tablet Take 1 tablet by mouth once daily for 1 day. - empagliflozin (JARDIANCE) 10 mg tablet Take 1 tablet by mouth daily with breakfast. Take 1 tablet once daily in the morning - atorvastatin (LIPITOR) 80 mg tablet Take 1 tablet by mouth once daily. - clopidogrel (PLAVIX) 75 mg tablet Take 1 tablet by mouth once daily. - busPIRone (BUSPAR) 5 mg tablet Take 1 tablet by mouth three times a day as needed. - spironolactone (ALDACTONE) 25 mg tablet Take 25 mg by mouth once daily. - carvedilol (COREG) 6.25 mg tablet Take 6.25 mg by mouth two times a day with meals. - semaglutide (OZEMPIC) 1 mg/dose (4 mg/3 mL) pen Inject 1 mg subcutaneously one time a week. - flash glucose scanning reader (FREESTYLE TARA 2 READER) 1 Device as directed. Type 2 diabetes uncontrolled, no insulin - ARMOUR THYROID 120 mg tablet Take 1 tablet PO daily in AM - blood sugar diagnostic (FREESTYLE LITE STRIPS) test strip Test blood sugar(s) 8 times daily. Dx: E11.65. Insulin: No - elderberry fruit 350 mg cap Take 1 capsule by mouth once daily. - ondansetron orally disintegrating (ZOFRAN ODT) 4 mg disintegrating tablet Take 1 tablet by mouth every 8 hours as needed for nausea/vomiting. - ergocalciferol 50,000 unit capsule (VITAMIN D2, DRISDOL) Take 1 capsule by mouth two times a week. - Blood Pressure Monitor (BLOOD PRESSURE KIT) 1 Each as directed. Dx: essential hypertension - blood sugar diagnostic (BLOOD GLUCOSE TEST) test strip Test blood sugar(s) 2 times daily. Dx: Type 2 DM - Uncontrolled E11.65 Insulin: No - Lancets lancets Test blood sugar(s) 2 times daily. Dx: Type 2 DM - Uncontrolled E11.65 Insulin: No - Lancets (FREESTYLE LANCETS) lancets Test blood sugar(s) 2 times daily. Dx: 250.02. Insulin: No Problem List As Of Date 01/03/2024 Noted Resolved Diabetes mellitus type 2, controlled, without c*07/13/2006 12/08/2022 BENIGN HYPERTENSION [I10] 07/13/2006 ADJUSTMENT DISORDER WITH DEPRESSED MOOD [F43.21]07/13/2006 ANXIETY STATE NOS [F41.1] 07/13/2006 Hypothyroidism [E03.9] 07/13/2006 Abdominal pain, right upper quadrant [R10.11] 02/16/2007 12/08/2022 Tobacco Use Disorder [F17.200] 10/29/2009 Celiac disease [K90.0] 11/06/2009 Fatigue [R53.83] 09/07/2017 Medial epicondylitis, left [M77.02] 09/07/2017 Controlled type 2 diabetes mellitus without com*10/12/2018 12/08/2022 Situational anxiety [F41.8] 10/12/2018 Dyslipidemia [E78.5] 10/12/2018 Aortic stenosis, moderate [I35.0] 08/2019 Uncontrolled type 2 diabetes mellitus with hype*05/21/2020 Palpitations [R00.2] 02/19/2022 Uncontrolled hypertension [I10] 02/19/2022 Vitamin B12 deficiency [E53.8] 09/10/2022 Vitamin D deficiency [E55.9] 09/10/2022 History of tobacco abuse [Z87.891] 03/18/2023 Disease of spinal cord (HCC) [G95.9] 12/09/2023 Renal artery stenosis (HCC) [I70.1] 12/09/2023 Other ulcerative colitis without complications *12/09/2023 Diabetes mellitus (HCC) [E11.9] 12/09/2023 Hyperlipidemia, mixed [E78.2] 12/09/2023 Nonrheumatic aortic valve stenosis [I35.0] 12/09/2023 Prescriptions ordered this encounter Disp Refills Start End METRONIDAZOLE 500 MG TABLET 14 t* 0 01/03/2024 01/10/2024 Route: ORAL Sig: Take 1 tablet by mouth two times a day for 7 days. Encounter Status:Closed by ALTAGRACIA WELCH on 01/03/24 Normal [facility] BACTERIAL VAGINOSIS NAATon 0 01-02-2024 Lactobacillus crispatus+gasseri+je nsenii + Gardnerella vaginalis + Atopobium vaginae rRNA NELL+probe Ql (Vag fld) Positive Abnormal Negative for bacterial vaginosis [facility] Comment on above: Order Comment: Speci men Type: SWABOrdering Facility: [facility] Address: [address] [place] [address] Performed By: #### B VAMP, [id number] ####[facility] LABCLIA [id number] [place] [address] [place] Bacteria Ur Culton Bacteria identified Cx Nom (U) ORGANISM ID: 1 <10,000 CFU/ml Lactose positive gram negative bacilli Insignificant colony count. No further workup. Normal [facility] Comment on above: Performed By: #### 6 30-4 ####[facility] LABCLIA [id number] [place] [address] [place] C. trachomatis+N. gonorrhoea e DNA NELL+probe Ql (Unsp spec)on 01-02-2024 C. trachomatis rRNA NELL+probe Ql (Unsp spec) Negative Normal Negative for Chlamydia trachomatis by amplificaton [facility] Comment on above: Order Comment: Speci men Type: SWABOrdering Facility: [facility] Address: [address] [place] [address] Performed By: #### B VAMP, [id number] ####[facility] LABCLIA [id number] [place] [address] [place] N. gonorrhoeae rRNA NELL+probe Ql (Unsp spec) Negative Normal Negative for Neisseria gonorrhoeae by amplification [facility] Comment on above: Order Comment: Speci men Type: SWABOrdering Facility: [facility] Address: [address] [place] [address] Performed By: #### B VAMP, [id number] ####[facility] LABCLIA [id number] [place] [address] [place] JOLANTA/TRICHOMONAS NAATon 0 01-02-2024 C. glabrata RNA NELL+probe Ql (Vag fld) Negative Normal Negative for Jolanta glabrata [facility] Comment on above: Order Comment: Speci men Type: SWABOrdering Facility: [facility] Address: [address] [place] [address] Performed By: #### C VTV ####[facility] LABCLIA [id number] [address] [place] Jolanta sp DNA NELL+probe Ql (Vag fld) Positive Abnormal Negative for Jolanta species [facility] Comment on above: Order Comment: Speci men Type: SWABOrdering Facility: [facility] Address: [address] [place] [address] Performed By: #### C VTV ####[facility] LABCLIA [id number] [address] [place] T. vaginalis DNA NELL+probe Ql (Unsp spec) Negative Normal Negative for Trichomonas vaginalis by amplification [facility] Comment on above: Order Comment: Speci men Type: SWABOrdering Facility: [facility] Address: [address] [place] [address] Performed By: #### C VTV ####[facility] LABCLIA [id number] [address] [place] CNOVon 01-02-2024 CNOV Office Visit (UCWSTR) TIA BLANCO ([id number]) 1955 F Date Time Provider Department 01/02/24 12:30 PM [facility] During your visit today, we recorded the following information about you: Temperature Pulse Respiration Blood pressure 97.4 degrees 80/minute 16/minute 132/82 Weight 74.1 kg Jemima Hernández, [place].TECHNICAL COMMUNICATOR 01/02/2024 1:14 PM Signed This note was created using NoteWriter. Subjective Tia Blanco is a 68 year old female. 68 year old female with PMH HTN, hyperlipidemia, renal artery stenosis, DM, thyroid and anxiety presents for vaginal complaints. Acute onset yesterday +vaginal itching I want to take a wire brush to my vagina +burning +frequency Recently had DM medicine changed-cites sugars have been high Recently changed to Jardiance Also endorses she changed her toilet paper. Denies fever or chills Denies N/V/D Denies recent coitus Denies vaginal bleeding. Denies vaginal discharge Denies /reproductive surgery Denies using homeopathic or OTC medicines SIDEWALK INSPECTOR PCP is Dr. Farrar The history is provided by the patient. No language asst was used. Vaginal Problem This is a new problem. The current episode started yesterday. The problem occurs constantly. The problem has been gradually worsening. Associated symptoms include urinary symptoms. Pertinent negatives include no abdominal pain, anorexia, arthralgias, change in bowel habit, chest pain, chills, congestion, coughing, diaphoresis, fatigue, fever, headaches, joint swelling, myalgias, nausea, neck pain, numbness, rash, sore throat, swollen glands, vertigo, visual change, vomiting or weakness. Nothing aggravates the symptoms. She has tried nothing for the symptoms. The treatment provided no relief. PAST MEDICAL HISTORY Diagnosis Date Aortic stenosis, moderate 08/2019 Benign hypertensive heart disease Celiac disease Diabetes mellitus without mention of complication Diabetes mellitus Fatty liver Grave's disease IBS (irritable bowel syndrome) Medical marijuana use has card Ulcerative colitis, unspecified Vitamin D deficiency PAST SURGICAL HISTORY Procedure Laterality Date COLONOSCOPY FLX DX W/COLLJ SPEC WHEN PFRMD 09/09/2013 Colonoscopy ESOPHAGOGASTRODUODEN OSCOPY TRANSORAL DIAGNOSTIC 09/09/2013 EGD INFUSE RADIOACTIVE MATERIALS Iodine ablation for Grave's disease LAP UMBILICAL HERNIA REPAIR 02/17/2000 Lap umbilical hernia with a 19cm mesh LAPAROSCOPY SURG CHOLECYSTECTOMY 03/01/2007 Lap Mary with visiport RUQ insertion LIG/TRNSXJ FLP TUBE ABDL/VAG APPR UNI/BI Tubal ligation ALLERGIES Asa [Salicylates], Gluten, Metformin, Prednisone, and Sulfa (Sulfonamide Antibiotics) MEDICATIONS empagliflozin (JARDIANCE) 10 mg tablet Take 1 tablet by mouth daily with breakfast. Take 1 tablet once daily in the morning atorvastatin (LIPITOR) 80 mg tablet Take 1 tablet by mouth once daily. clopidogrel (PLAVIX) 75 mg tablet Take 1 tablet by mouth once daily. busPIRone (BUSPAR) 5 mg tablet Take 1 tablet by mouth three times a day as needed. spironolactone (ALDACTONE) 25 mg tablet Take 25 mg by mouth once daily. carvedilol (COREG) 6.25 mg tablet Take 6.25 mg by mouth two times a day with meals. semaglutide (OZEMPIC) 1 mg/dose (4 mg/3 mL) pen Inject 1 mg subcutaneously one time a week. flash glucose scanning reader (FREESTYLE TARA 2 READER) 1 Device as directed. Type 2 diabetes uncontrolled, no insulin ARMOUR THYROID 120 mg tablet Take 1 tablet PO daily in AM blood sugar diagnostic (FREESTYLE LITE STRIPS) test strip Test blood sugar(s) 8 times daily. Dx: E11.65. Insulin: No elderberry fruit 350 mg cap Take 1 capsule by mouth once daily. ondansetron orally disintegrating (ZOFRAN ODT) 4 mg disintegrating tablet Take 1 tablet by mouth every 8 hours as needed for nausea/vomiting. ergocalciferol 50,000 unit capsule (VITAMIN D2, DRISDOL) Take 1 capsule by mouth two times a week. Blood Pressure Monitor (BLOOD PRESSURE KIT) 1 Each as directed. Dx: essential hypertension blood sugar diagnostic (BLOOD GLUCOSE TEST) test strip Test blood sugar(s) 2 times daily. Dx: Type 2 DM - Uncontrolled E11.65 Insulin: No Lancets lancets Test blood sugar(s) 2 times daily. Dx: Type 2 DM - Uncontrolled E11.65 Insulin: No Lancets (FREESTYLE LANCETS) lancets Test blood sugar(s) 2 times daily. Dx: 250.02. Insulin: No fluconazole (DIFLUCAN) 150 mg tablet Take 1 tablet by mouth once daily for 1 day. FAMILY HISTORY Problem Relation Age of Onset Cervical Cancer Sister Diabetes Father Psychiatry Mother Hypertension Father Heart Mother Heart Father Alzheimer's Disease Mother Breast Cancer Sister Social History Tobacco Use Smoking status: Former Packs/day: .5 Types: Cigarettes Quit date: 11/02/2022 Years since quittin.1 Smokeless tobacco: Never Tobacco comments: 20+ years s (more content not included)... Normal [facility] GLUCOSE, BLOOD (POC)on 01-01 Glucose [Mass/Vol] 140 mg/dL Abnormal 74 - 99 mg/dL [facility] UA DIP, URINE (POC)on 2023 BILIRUBIN UA (POCT) Negative Negative [facility] CLARITY UA (POCT) Clear [facility] COLOR UA (POCT) [facility] GLUCOSE UA (POCT) >=1000 Abnormal Negative mg/dL [facility] Hemoglobin Ql (U) Small Abnormal Negative [facility] KETONE UA (POCT) Negative Negative mg/dL [facility] LEUKOCYTES UA (POCT) Negative Negative [facility] NITRITE UA (POCT) Negative [facility] PH UA (POCT) 5.0 4.5 - 8.0 [facility] Protein Ql (U) Negative Negative mg/dL [facility] SPECIFIC GRAVITY UA (POCT) 1.010 1.005 - 1.030 [facility] UROBILINOGEN UA (POCT) 0.2 E.U./dL Normal E.U./dL [facility] CNPNon 12-24-2023 CNPN Telephone (FAMPWS) TIA BLANCO ([id number]) 1955 F Date Time Provider Department 12/24/23 [facility] During your visit today, we recorded the following information about you: Chelo Prasad, OLVIN 12/24/2023 3:24 PM Signed Patient calling to state she is having difficulty with increased blood sugars despite following a strict diet. Patient reports her blood sugars have been varying from 140-180 in last 24 hours after eating only eggs, 1 piece of gluten free bread, half an orange, chicken sausage, salmon and vegetables. Reports she was on Glimepiride and Ozempic but was recently changed to Jardiance and Ozempic. Asking if Dr. Farrar could advise if she should be eating carbohydrates or not. This nurse encouraged pt to consider speaking with a keyliner/consult ant to discuss diet management, if agreeable. Patient would rather hold off on speaking with a specialist as of this time. Asking if Dr. Farrar would be able to advise her at this time? Thank you. Robert Ulloa LPN 12/31/2023 12:12 PM Signed Pt called to check status and message below. Pt wanted to stress that her blood sugars are higher that she likes. When pt was on a no carb diet her blood sugars were good. Pt not sure what the plan is for her with medication Ozempic and Jardiance. Pt made aware provider has been out of the office and will return next week. Pt asking to have Dr. Farrar look at this next week and advise her. ALEXIA Birmingham Laurie Lynn, LPN 01/06/2024 9:07 AM Signed Pt called in to check status. Booked pt for apt today. ALEXIA Birmingham Alyson, APRN.DEREK 01/06/2024 10:02 AM Signed Noted. Will address at appointment today. Thank you, Jacqueline Candelario APRN.TECHNICAL COMMUNICATOR Allergies As of Date: 12/24/2023 Noted Allergy Reaction ASA (SALICYLATES) 01/05/2006 GLUTEN 10/17/2016 16 - Unknown METFORMIN 06/20/2010 Comments: nausea.. can take name brand PREDNISONE 10/02/2012 9 - Itching SULFA (SULFONAMIDE ANTIBIOTICS) 12/29/2005 Date Reviewed: 11/19/2023 Reviewed by: Jacqueline Candelario APRN.TECHNICAL COMMUNICATOR - Fully Assessed Reason for Visit: Patient Question [5477] Prescriptions as of 01/06/2024 - ARMOUR THYROID 120 mg tablet Take 1 tablet PO daily in AM - semaglutide (OZEMPIC) 1 mg/dose (4 mg/3 mL) pen Inject 1 mg subcutaneously one time a week. - metroNIDAZOLE (FLAGYL) 500 mg tablet Take 1 tablet by mouth two times a day for 7 days. - empagliflozin (JARDIANCE) 10 mg tablet Take 1 tablet by mouth daily with breakfast. Take 1 tablet once daily in the morning - atorvastatin (LIPITOR) 80 mg tablet Take 1 tablet by mouth once daily. - clopidogrel (PLAVIX) 75 mg tablet Take 1 tablet by mouth once daily. - busPIRone (BUSPAR) 5 mg tablet Take 1 tablet by mouth three times a day as needed. - spironolactone (ALDACTONE) 25 mg tablet Take 25 mg by mouth once daily. - carvedilol (COREG) 6.25 mg tablet Take 6.25 mg by mouth two times a day with meals. - flash glucose scanning reader (FREESTYLE TARA 2 READER) 1 Device as directed. Type 2 diabetes uncontrolled, no insulin - blood sugar diagnostic (FREESTYLE LITE STRIPS) test strip Test blood sugar(s) 8 times daily. Dx: E11.65. Insulin: No - elderberry fruit 350 mg cap Take 1 capsule by mouth once daily. - ondansetron orally disintegrating (ZOFRAN ODT) 4 mg disintegrating tablet Take 1 tablet by mouth every 8 hours as needed for nausea/vomiting. - ergocalciferol 50,000 unit capsule (VITAMIN D2, DRISDOL) Take 1 capsule by mouth two times a week. - Blood Pressure Monitor (BLOOD PRESSURE KIT) 1 Each as directed. Dx: essential hypertension - blood sugar diagnostic (BLOOD GLUCOSE TEST) test strip Test blood sugar(s) 2 times daily. Dx: Type 2 DM - Uncontrolled E11.65 Insulin: No - Lancets lancets Test blood sugar(s) 2 times daily. Dx: Type 2 DM - Uncontrolled E11.65 Insulin: No - Lancets (FREESTYLE LANCETS) lancets Test blood sugar(s) 2 times daily. Dx: 250.02. Insulin: No Problem List As Of Date 12/24/2023 Noted Resolved Diabetes mellitus type 2, controlled, without c*07/13/2006 12/08/2022 BENIGN HYPERTENSION [I10] 07/13/2006 ADJUSTMENT DISORDER WITH DEPRESSED MOOD [F43.21]07/13/2006 ANXIETY STATE NOS [F41.1] 07/13/2006 Hypothyroidism [E03.9] 07/13/2006 Abdominal pain, right upper quadrant [R10.11] 02/16/2007 12/08/2022 Tobacco Use Disorder [F17.200] 10/29/2009 Celiac disease [K90.0] 11/06/2009 Fatigue [R53.83] 09/07/2017 Medial epicondylitis, left [M77.02] 09/07/2017 Controlled type 2 diabetes mellitus without com*10/12/2018 12/08/2022 Situational anxiety [F41.8] 10/12/2018 Dyslipidemia [E78.5] 10/12/2018 Aortic stenosis, moderate [I35.0] 08/2019 Uncontrolled type 2 diabetes mellitus with hype*05/21/2020 Palpitations [R00.2] 02/19/2022 Uncontrolled hypertension [I10] 02/19/2022 Vitamin B12 deficiency [E53. (more content not included)... Normal [facility] CNOVon 12-09-2023 CNOV Office Visit (FAMPWS) SUSANATIA DEE ([id number]) 1955 F Date Time Provider Department 12/09/23 5:40 PM [facility] During your visit today, we recorded the following information about you: Temperature Pulse Respiration Blood pressure 97.4 degrees 80/minute 12/minute 130/80 Weight 74.4 kg Preet Farrar, 12/09/2023 9:46 PM Signed No chief complaint on file. HPI: Tia Walker Francis is a 68 year old female who presents to the office today for review of health conditions. Concerns today: Recently she has been overwhelmed with stressors with the hospital taking her off her HTN medications and her BLOOD PRESSURE was out of control. 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 Overton that she sees for BLOOD PRESSURE control and restarted on spironolactone as well as coreg twice a day. She is tolerating these without concern. She is frustrated recently with her blood glucose being from 180-200s in the morning sometimes when she wakes up. She doesn't feel that her medications are working as they should- she is taking glimepiride twice a day as well as ozempic injection 1 mg per week without SE. She feels that she needs a medication change She is going to be seeing Dr. Bradley vascular specialist in the next 1 week after additional testing for carotid artery atherosclerosis- she is having a CT done next week. She is willing to see a bilingual spanish inbound sales- hasn't had any obvious cardiac symptoms but she is concerned since she does have a history of tobacco use / smoking and has significant artery disease in carotid arteries. Ms. Blanco has past history of diabetes. Since our last visit she denies excessive thirst or increased frequency of urination, chest pain or dyspnea , new or unusual visual symptoms, and low sugar/hypoglycemic reactions. Depression- no. Follows a diabetic diet some of the time. She is compliant with medication(s) and is tolerating med(s) without any side effects. She reports checking her glucose on a three times a day schedule with sugars in the fasting 180-200 range. Patient's last HgA1C was Hemoglobin A1C (%) Date Value 11/16/2023 6.4 11/13/2023 6.5 11/13/2021 6.3 04/16/2021 6.3 ) Last Ophthalmology exam was within the past 12 months Ms. Blanco reports history of hyperlipidemia. Current therapy includes atorvastatin (Lipitor) 80 mg. Denies side effects of muscle weakness or achiness. Her most recent lipid panels are reviewed. Cholesterol, Total (mg/dL) Date Value 11/13/2023 121 04/16/2021 193 HDL Cholesterol (mg/dL) Date Value 11/13/2023 77 04/16/2021 58 LDL Cholesterol (mg/dL) Date Value 11/13/2023 24 04/16/2021 91 Triglyceride (mg/dL) Date Value 11/13/2023 99 04/16/2021 222 Ms. Blanco indicates a history of hypertension and states that she is feeling well and denies any symptoms referable to elevated blood pressure. Specifically denies headache, chest pain, palpitations, dyspnea, and peripheral edema. Patient denies any side effects of her medication(s) and is compliant with their regimen. Last 3 Encounter BP Readings: Date: BP: 12/09/2023 130/80 11/19/2023 100/60 11/13/2023 160/70 She watches her diet for sodium, low fat and low cholesterol some of the time. She does not check BP's generally. Tia gets sporadic irregular exercise. PAST MEDICAL HISTORY Diagnosis Date Aortic stenosis, moderate 08/2019 Benign hypertensive heart disease Celiac disease Diabetes mellitus without mention of complication Diabetes mellitus Fatty liver Grave's disease IBS (irritable bowel syndrome) Medical marijuana use has card Ulcerative colitis, unspecified Vitamin D deficiency PAST SURGICAL HISTORY Procedure Laterality Date COLONOSCOPY FLX DX W/COLLJ SPEC WHEN PFRMD 09/09/2013 Colonoscopy ESOPHAGOGASTRODUODEN OSCOPY TRANSORAL DIAGNOSTIC 09/09/2013 EGD INFUSE RADIOACTIVE MATERIALS Iodine ablation for Grave's disease LAP UMBILICAL HERNIA REPAIR 02/17/2000 Lap umbilical hernia with a 19cm mesh LAPAROSCOPY SURG CHOLECYSTECTOMY 03/01/2007 Lap Mary with visiport RUQ insertion LIG/TRNSXJ FLP TUBE ABDL/VAG APPR UNI/BI Tubal ligation Social History Tobacco Use Smoking status: Former Packs/day: .5 Types: Cigarettes Quit date: 11/02/2022 Years since quittin.1 Smokeless tobacco: Never Tobacco comments: 20+ years smoking Substance Use Topics Alcohol use: Yes Drug use: No FAMILY HISTORY Problem Relation Age of Onset Cervical Cancer Sister Diabetes Father Psychiatry Mother Hypertension Father Heart Mother Heart Father Alzheimer's Disease Mother Breast Cancer Sister Allergies: ALLERGIES Allergen Reactions Asa [Salicylates] Gluten Unknown Metformin nausea.. can take name brand Prednisone Itching Sulfa (Sulfonamide * Current Meds: atorvastatin (LIPITOR) 80 m (more content not included)... Normal [facility] 11-25-2023 [facility] Telephone (CIRILOWS) TIA BLANCO ([id number]) 1955 F Date Time Provider Department 11/25/23 [facility] During your visit today, we recorded the following information about you: Gretchen Dorantes LPN 11/25/2023 8:21 AM Signed At office visit 11/19/23 pt AND A [employer] discussed [place], pt has decided she would like to try it. Please send Rx to [facility] in [place] AND notify pt when it has been sent in. ALEXIA Manzanares Alyson, APRN.TECHNICAL COMMUNICATOR 11/25/2023 9:27 AM Signed The following approved medication requests have been transmitted electronically. Requested Prescriptions Signed Prescriptions Disp Refills busPIRone (BUSPAR) 5 mg tablet 90 tablet 2 Sig: Take 1 tablet by mouth three times a day as needed. Authorizing Provider: JACQUELINE CANDELARIO APRN.Kerry Quintanilla LPN 11/25/2023 9:50 AM Signed Phoned patient aware rx was sent to pharmacy. Allergies As of Date: 11/25/2023 Noted Allergy Reaction ASA (SALICYLATES) 01/05/2006 GLUTEN 10/17/2016 16 - Unknown METFORMIN 06/20/2010 Comments: nausea.. can take name brand PREDNISONE 10/02/2012 9 - Itching SULFA (SULFONAMIDE ANTIBIOTICS) 12/29/2005 Date Reviewed: 11/19/2023 Reviewed by: Jacqueline Candelario APRN.TECHNICAL COMMUNICATOR - Fully Assessed Reason for Visit: Medication Request [138] Order(s):busPIRone (BUSPAR) 5 mg tabletTake 1 tablet by mouth three times a day as needed.Disp: 90 tabletRfl: 2 Prescriptions as of 11/25/2023 - busPIRone (BUSPAR) 5 mg tablet Take 1 tablet by mouth three times a day as needed. - spironolactone (ALDACTONE) 25 mg tablet Take 25 mg by mouth once daily. - carvedilol (COREG) 6.25 mg tablet Take 6.25 mg by mouth two times a day with meals. - semaglutide (OZEMPIC) 1 mg/dose (4 mg/3 mL) pen Inject 1 mg subcutaneously one time a week. - flash glucose scanning reader (FREESTYLE TARA 2 READER) 1 Device as directed. Type 2 diabetes uncontrolled, no insulin - ARMOUR THYROID 120 mg tablet Take 1 tablet PO daily in AM - glimepiride (AMARYL) 2 mg tablet Take 1 tablet by mouth two times a day with meals. - semaglutide (OZEMPIC) 2 mg/dose (8 mg/3 mL) pen injector Inject 2 mg subcutaneously one time a week. - atorvastatin (LIPITOR) 80 mg tablet Take 1 tablet by mouth once daily. - clopidogrel (PLAVIX) 75 mg tablet Take 1 tablet by mouth once daily. - blood sugar diagnostic (FREESTYLE LITE STRIPS) test strip Test blood sugar(s) 8 times daily. Dx: E11.65. Insulin: No - elderberry fruit 350 mg cap Take 1 capsule by mouth once daily. - ondansetron orally disintegrating (ZOFRAN ODT) 4 mg disintegrating tablet Take 1 tablet by mouth every 8 hours as needed for nausea/vomiting. - ergocalciferol 50,000 unit capsule (VITAMIN D2, DRISDOL) Take 1 capsule by mouth two times a week. - Blood Pressure Monitor (BLOOD PRESSURE KIT) 1 Each as directed. Dx: essential hypertension - blood sugar diagnostic (BLOOD GLUCOSE TEST) test strip Test blood sugar(s) 2 times daily. Dx: Type 2 DM - Uncontrolled E11.65 Insulin: No - Lancets lancets Test blood sugar(s) 2 times daily. Dx: Type 2 DM - Uncontrolled E11.65 Insulin: No - Lancets (FREESTYLE LANCETS) lancets Test blood sugar(s) 2 times daily. Dx: 250.02. Insulin: No Problem List As Of Date 11/25/2023 Noted Resolved Diabetes mellitus type 2, controlled, without c*07/13/2006 12/08/2022 BENIGN HYPERTENSION [I10] 07/13/2006 ADJUSTMENT DISORDER WITH DEPRESSED MOOD [F43.21]07/13/2006 ANXIETY STATE NOS [F41.1] 07/13/2006 Hypothyroidism [E03.9] 07/13/2006 Abdominal pain, right upper quadrant [R10.11] 02/16/2007 12/08/2022 Tobacco Use Disorder [F17.200] 10/29/2009 Celiac disease [K90.0] 11/06/2009 Fatigue [R53.83] 09/07/2017 Medial epicondylitis, left [M77.02] 09/07/2017 Controlled type 2 diabetes mellitus without com*10/12/2018 12/08/2022 Situational anxiety [F41.8] 10/12/2018 Dyslipidemia [E78.5] 10/12/2018 Aortic stenosis, moderate [I35.0] 08/2019 Uncontrolled type 2 diabetes mellitus with hype*05/21/2020 Palpitations [R00.2] 02/19/2022 Uncontrolled hypertension [I10] 02/19/2022 Vitamin B12 deficiency [E53.8] 09/10/2022 Vitamin D deficiency [E55.9] 09/10/2022 History of tobacco abuse [Z87.891] 03/18/2023 Prescriptions ordered this encounter Disp Refills Start End BUSPIRONE 5 MG TABLET 90 t* 2 11/25/2023 02/23/2024 Route: ORAL Sig: Take 1 tablet by mouth three times a day as needed. Encounter Status:Closed by KERRY NEVAREZ on 11/25/23 Normal [facility] TROPHSon 11-25-2023 Troponin I High Sensitivity 4.86 ng/L Normal 0.00-34.00 [facility] ([place]) Comment on above: Performed By: #### T [facility] ####[address] [address] .Auto Diffon 11-24-2023 Basophil, Absolute 0.1 10 3/mcL Normal 0.0-0.3 [facility] ([place]) Comment on above: Performed By: #### P BNP, BMP, CBC, GFR, ANEU, GANGA JOHNSON, ADIFF #### [address] [address] Basophils/100 WBC (Bld) 0.6 % Normal 0.0-2.5 [facility] ([place]) Comment on above: Performed By: #### P BNP, BMP, CBC, GFR, ANEU, GANGA JOHNSON, ADIFF #### [address] [address] Eosinophil, Absolute 0.2 10 3/mcL Normal 0.0-0.7 [facility] ([place]) Comment on above: Performed By: #### P BNP, BMP, CBC, GFR, ELIZABETH VARGAS MDW, ADIFF #### [address] [address] Eosinophils/100 WBC (Bld) 2.0 % Normal 0.0-6.0 [facility] ([place]) Comment on above: Performed By: #### P BNP, BMP, CBC, GFR, ANEU, TROPHS, W, ADIFF #### [address] [address] Lymphocyte, Absolute 2.6 10 3/mcL Normal 0.9-4.3 [facility] ([place]) Comment on above: Performed By: #### P BNP, BMP, CBC, GFR, ANEU, TROPHS, MDW, ADIFF #### [address] [address] Lymphocytes/100 WBC (Bld) 22.2 % Normal 20.0-40.0 [facility] ([place]) Comment on above: Performed By: #### P BNP, BMP, CBC, GFR, ANEU, TROPHS, MDW, ADIFF #### [address] [address] Monocyte, Absolute 0.9 10 3/mcL Normal 0.1-1.4 [facility] ([place]) Comment on above: Performed By: #### P BNP, BMP, CBC, GFR, ANEU, TROPHS, MDW, ADIFF #### [address] [address] Monocytes/100 WBC (Bld) 7.6 % Normal 2.0-13.0 [facility] ([place]) Comment on above: Performed By: #### P BNP, BMP, CBC, GFR, ANEU, TROPHS, MDW, ADIFF #### [address] [address] Neutrophils/100 WBC (Bld) 67.6 % Normal 50.0-75.0 [facility] ([place]) Comment on above: Performed By: #### P BNP, BMP, CBC, GFR, ANEU, TROPHS, GANGA, ADIFF #### [address] [address] .GFRon 11-24-2023 GFR >60 Normal [facility] ([place]) Comment on above: Result Comment: GFR Population mean for , Non- Americans Ages 20-29 = 116 mL/min/1.73 sq.m. Ages 30-39 = 107 mL/min/1.73 sq.m. Ages 40-49 = 99 mL/min/1.73 sq.m. Ages 50-59 = 93 mL/min/1.73 sq.m. Ages 60-69 = 85 mL/min/1.73 sq.m. Ages 70+ = 75 mL/min/1.73 sq.m. Chronic Kidney Disease: Less than 60 mL/min/1.73 square meters End Stage Renal Disease: Less than 15 mL/min/1.73 square meters Performed By: #### P BNP, BMP, CBC, GFR, ELIZABETH VARGAS MDW, ADIFF #### [address] [address] GFR Non- >60 Normal [facility] ([place]) Comment on above: Result Comment: GFR Population mean for , Non- Americans Ages 20-29 = 116 mL/min/1.73 sq.m. Ages 30-39 = 107 mL/min/1.73 sq.m. Ages 40-49 = 99 mL/min/1.73 sq.m. Ages 50-59 = 93 mL/min/1.73 sq.m. Ages 60-69 = 85 mL/min/1.73 sq.m. Ages 70+ = 75 mL/min/1.73 sq.m. Chronic Kidney Disease: Less than 60 mL/min/1.73 square meters End Stage Renal Disease: Less than 15 mL/min/1.73 square meters Performed By: #### P BNP, BMP, CBC, GFR, ELIZABETH VARGAS MDW, ADIFF #### [address] [address] .MDWon 11-24-2023 Monocyte Distribution Width 17.57 Normal 0.00-20.00 [facility] ([place]) Comment on above: Result Comment: For ED adult patients suspected of sepsis, MDW<=20.0 does not rule out sepsis or risk of sepsis Performed By: #### P BNP, BMP, CBC, GFR, ELIZABETH VARGAS MDW, ADIFF #### [address] [address] .NEUABSon 11-24-2023 Neutrophil, Absolute 8.0 10 3/mcL Normal 2.3-8.1 [facility] ([place]) Comment on above: Performed By: #### P BNP, BMP, CBC, GFR, ELIZABETH VARGAS MDW, ADIFF #### [address] [address] BMPon 11-24-2023 BUN/Creatinine Ratio 23.4 ratio High 10.0-22.0 [facility] ([place]) Comment on above: Performed By: #### P BNP, BMP, CBC, GFR, ELIZABETH VARGAS MDW, ADIFF #### [address] [address] Calcium [Mass/Vol] 9.9 mg/dL Normal 8.7-10.4 [facility] ([place]) Comment on above: Performed By: #### P BNP, BMP, CBC, GFR, ELIZABETH VARGAS MDW, ADIFF #### [address] [address] Chloride [Moles/Vol] 106 mmol/L Normal 98-110 [facility] ([place]) Comment on above: Performed By: #### P BNP, BMP, CBC, GFR, ELIZABETH VARGAS MDW, ADIFF #### [address] [address] CO2 [Moles/Vol] 25 mmol/L Normal 22-32 [facility] ([place]) Comment on above: Performed By: #### P BNP, BMP, CBC, GFR, ELIZABETH VARGAS MDW, ADIFF #### [address] [address] Creatinine [Mass/Vol] 0.64 mg/dL Normal 0.50-1.20 [facility] ([place]) Comment on above: Performed By: #### P BNP, BMP, CBC, GFR, ELIZABETH VARGAS MDW, ADIFF #### [address] [address] Electrolyte Balance 5.0 mEq/L Normal 4.0-15.0 [facility] ([place]) Comment on above: Performed By: #### P BNP, BMP, CBC, GFR, ELIZABETH VARGAS MDW, ADIFF #### [place] [id number] Glucose [Mass/Vol] 158 mg/dL High 82-115 [facility] ([place]) Comment on above: Performed By: #### P BNP, BMP, CBC, GFR, ELIZABETH VARGAS, GANGA, ADIFF #### [address] [address] Potassium [Moles/Vol] 3.9 mmol/L Normal 3.5-5.0 [facility] ([place]) Comment on above: Result Comment: Spec imen slightly hemolyzed. Performed By: #### P BNP, BMP, CBC, GFR, SAM, ELIZABETH, GANGA, ADIFF #### [place] [id number] Sodium [Moles/Vol] 136 mmol/L Normal 136-145 [facility] ([place]) Comment on above: Performed By: #### P BNP, BMP, CBC, GFR, ELIZABETH VARGAS MDW, ADIFF #### [place] [id number] Urea nitrogen [Mass/Vol] 15.0 mg/dL Normal 8.0-22.0 [facility] ([place]) Comment on above: Performed By: #### P BNP, BMP, CBC, GFR, ELIZABETH VARGAS MDW, ADIFF #### [address] [address] CBCon 11-24-2023 Erythrocyte distribution width (RBC) [Ratio] 14.3 % Normal 11.5-15.5 [facility] ([place]) Comment on above: Performed By: #### P BNP, BMP, CBC, GFR, ELIZABETH VARGAS MDW, ADIFF #### [place] [id number] Hematocrit (Bld) [Volume fraction] 40.9 % Normal 34.0-46.0 [facility] ([place] Comment on above: Performed By: #### P BNP, BMP, CBC, GFR, ELIZABETH VARGAS MDW, ADIFF #### [place] [id number] Hgb 13.7 G/dL Normal 12.0-16.0 [facility] ([place] Comment on above: Performed By: #### P BNP, BMP, CBC, GFR, ANEU, ELIZABETH, W, ADIFF #### [address] [address] MCH (RBC) [Entitic mass] 29.9 pg Normal 27.0-33.0 [facility] ([place] Comment on above: Performed By: #### P BNP, BMP, CBC, GFR, ANEU, TROPHS, W, ADIFF #### [address] [address] MCHC 33.5 G/dL Normal 32.0-36.0 [facility] ([place]) Comment on above: Performed By: #### P BNP, BMP, CBC, GFR, ANEU, TROPHS, MDW, ADIFF #### [place] [address] MCV (RBC) [Entitic vol] 89.5 fL Normal 80.0-99.0 [facility] ([place] Comment on above: Performed By: #### P BNP, BMP, CBC, GFR, ANEU, ELIZABETH, W, ADIFF #### [place] [address] Platelet 365 10 3/mcL Normal 150-450 [facility] ([place]) Comment on above: Performed By: #### P BNP, BMP, CBC, GFR, ANEU, LAMS, MDW, ADIFF #### [place] [address] Platelet mean volume (Bld) [Entitic vol] 7.7 fL Normal 6.6-10.5 [facility] ([place] Comment on above: Performed By: #### P BNP, BMP, CBC, GFR, ANEU, TROPHS, W, ADIFF #### [place] [id number] RBC 4.58 10 6/mcL Normal 4.10-5.30 [facility] ([place]) Comment on above: Performed By: #### P BNP, BMP, CBC, GFR, ANEU, TROPHS, W, ADIFF #### [address] [address] WBC 11.8 10 3/mcL High 4.5-10.8 [facility] ([place]) Comment on above: Performed By: #### P BNP, BMP, CBC, GFR, ANEU, TROPHS, MDW, ADIFF #### [address] [address] LABORATORYOrdered By: SYSTEM SYSTEM on 11-24-2023 Troponin I.cardiac DL <= 0.01 ng/mL [Mass/Vol] 4.86 ng/L Normal 0.00 - 34.00 ng/L ADM SS Basophils (Bld) [#/Vol] 0.1 103/mcL Normal 0.0 - 0.3 10^3/mcL AH Workflow SS Basophils/100 WBC (Bld) 0.6 % Normal 0.0 - 2.5 % AH Workflow SS Calcium [Mass/Vol] 9.9 mg/dL Normal 8.7 - 10.4 mg/dL ADM SS Chloride [Moles/Vol] 106 mmol/L Normal 98 - 110 mEq/L ADM SS CO2 [Moles/Vol] 25 mmol/L Normal 22 - 32 mEq/L AH ADM SS Creatinine [Mass/Vol] 0.64 mg/dL Normal 0.50 - 1.20 mg/dL AH ADM SS Electrolyte Balance 5.0 mEq/L Normal 4.0 - 15.0 mEq/L ADM SS Eosinophils (Bld) [#/Vol] 0.2 103/mcL Normal 0.0 - 0.7 10^3/mcL AH Workflow SS Eosinophils/100 WBC (Bld) 2.0 % Normal 0.0 - 6.0 % AH Workflow SS Erythrocyte distribution width (RBC) [Ratio] 14.3 % Normal 11.5 - 15.5 % AH Workflow SS GFR/1.73 sq M.predicted among blacks MDRD (S/P/Bld) [Vol rate/Area] ml/min/1.73sqm Invalid Interpretation Code ADM SS Comment on above: Interpretive Data: GFR Population mean for , Non- Americans Ages 20-29 = 116 mL/min/1.73 sq.m. Ages 30-39 = 107 mL/min/1.73 sq.m. Ages 40-49 = 99 mL/min/1.73 sq.m. Ages 50-59 = 93 mL/min/1.73 sq.m. Ages 60-69 = 85 mL/min/1.73 sq.m. Ages 70+ = 75 mL/min/1.73 sq.m. Chronic Kidney Disease: Less than 60 mL/min/1.73 square meters End Stage Renal Disease: Less than 15 mL/min/1.73 square meters GFR/1.73 sq M.predicted among non-blacks MDRD (S/P/Bld) [Vol rate/Area] ml/min/1.73sqm Invalid Interpretation Code ADM SS Comment on above: Interpretive Data: GFR Population mean for , Non- Americans Ages 20-29 = 116 mL/min/1.73 sq.m. Ages 30-39 = 107 mL/min/1.73 sq.m. Ages 40-49 = 99 mL/min/1.73 sq.m. Ages 50-59 = 93 mL/min/1.73 sq.m. Ages 60-69 = 85 mL/min/1.73 sq.m. Ages 70+ = 75 mL/min/1.73 sq.m. Chronic Kidney Disease: Less than 60 mL/min/1.73 square meters End Stage Renal Disease: Less than 15 mL/min/1.73 square meters Glucose [Mass/Vol] 158 mg/dL High 82 - 115 mg/dL ADM SS Hematocrit (Bld) [Volume fraction] 40.9 % Normal 34.0 - 46.0 % AH Workflow SS Hemoglobin (Bld) [Mass/Vol] 13.7 G/dL Normal 12.0 - 16.0 G/dL AH Workflow SS Lymphocytes (Bld) [#/Vol] 2.6 103/mcL Normal 0.9 - 4.3 10^3/mcL Workflow SS Lymphocytes/100 WBC (Bld) 22.2 % Normal 20.0 - 40.0 % Workflow SS Magnesium [Mass/Vol] 1.8 mg/dL Normal 1.6 - 2.4 mg/dL ADM SS MCH (RBC) [Entitic mass] 29.9 pg Normal 27.0 - 33.0 pg Workflow SS MCHC 33.5 G/dL Normal 32.0 - 36.0 G/dL Workf low SS MCV (RBC) [Entitic vol] 89.5 fL Normal 80.0 - 99.0 fL AH Workflow SS Monocyte distribution width Auto (Bld) [Entitic vol] 17.57 1 Normal 0.00 - 20.00 AH Workflow SS Comment on above: Result Comment: For ED adult patients suspected of sepsis, MDW<=20.0 does not rule out sepsis or risk of sepsis Monocytes (Bld) [#/Vol] 0.9 103/mcL Normal 0.1 - 1.4 10^3/mcL AH Workflow SS Monocytes/100 WBC (Bld) 7.6 % Normal 2.0 - 13.0 % AH Workflow SS Neutrophils (Bld) [#/Vol] 8.0 103/mcL Normal 2.3 - 8.1 10^3/mcL AH Workflow SS Neutrophils/100 WBC (Bld) 67.6 % Normal 50.0 - 75.0 % AH Workflow SS Platelet mean volume (Bld) [Entitic vol] 7.7 fL Normal 6.6 - 10.5 fL AH Workflow SS Platelets (Bld) [#/Vol] 365 103/mcL Normal 150 - 450 10^3/mcL AH Workflow SS Potassium [Moles/Vol] 3.9 mmol/L Normal 3.5 - 5.0 mEq/L ADM SS Comment on above: Result Comment: Spec imen slightly hemolyzed. RBC (Bld) [#/Vol] 4.58 106/mcL Normal 4.10 - 5.3 0 10^6/mcL AH Workflow SS Sodium [Moles/Vol] 136 mmol/L Normal 136 - 145 mEq/L A H ADM SS Troponin I.cardiac DL <= 0.01 ng/mL [Mass/Vol] 4.59 ng/L Normal 0.00 - 34.00 ng/L ADM SS Urea nitrogen [Mass/Vol] 15.0 mg/dL Normal 8.0 - 22.0 mg/dL ADM SS Urea nitrogen/Creatinine [Mass ratio] 23.4 ratio High 10.0 - 22.0 ratio AH ADM SS WBC (Bld) [#/Vol] 11.8 103/mcL High 4.5 - 10.8 10^3/mcL AH Workflow SS LABORATORYOrdered By: Sherry Pan on 11-24-2023 Natriuretic peptide.B prohormone N-Terminal [Mass/Vol] 39 pg/mL Normal 0 - 900 pg/mL Auto Chem SS Comment on above: Interpretive Data: N T-proBNP results of less than 300 pg/mL effectively rules out acute congestive heart failure with 99% negative predictive value. MGon 11-24-2023 Magnesium [Mass/Vol] 1.8 mg/dL Normal 1.6-2.4 [facility] ([place]) Comment on above: Performed By: #### M G #### [place] [id number] PBNPon 11-24-2023 Natriuretic peptide B (Bld) [Mass/Vol] 39 pg/mL Normal 0-900 [facility] ([place]) Comment on above: Result Comment: NT-p roBNP results of less than 300 pg/mL effectively rules out acute congestive heart failure with 99% negative predictive value. Performed By: #### P BNP, BMP, CBC, GFR, SAM, GANGA JOHNSON, ADIFF #### [place] [id number] TROPHSon 11-24-2023 Troponin I High Sensitivity 4.59 ng/L Normal 0.00-34.00 [facility] ([place]) Comment on above: Performed By: #### P BNP, BMP, CBC, GFR, SAM, GANGA JOHNSON, ADIFF #### [place] [id number] XR CHEST 1 VIEWon 11-24-2023 XR CHEST 1 VIEW ORIGINAL EXAMINATION: ONE XRAY VIEW OF THE CHEST 11/24/2023 7:05 pm COMPARISON: None. HISTORY: ORDERING SYSTEM PROVIDED HISTORY: Reason for Exam: chest pain FINDINGS: The cardiomediastinal silhouette appears normal. There is no focal consolidation. There is no pulmonary edema. There is no evidence of pleural effusion. There is no evidence of pneumothorax. No fracture is identified. IMPRESSION: No acute abnormality is identified. Interpreted by: Eyad Mary Preliminary Report By: Eyad Mary Electronically signed By Eyad Mary Dictated Date: 11/24/2023 7:08:20 PM Prelim Date: 11/24/2023 7:08:29 PM Sign Date: 11/24/2023 7:08:29 PM Ordering Provider: RICKY Crews [facility] ([place]) CNOVon 11-19-2023 CNOV Office Visit (FAMPWS) TIA BLANCO ([id number]) 1955 F Date Time Provider Department 11/19/23 9:20 AM [facility] During your visit today, we recorded the following information about you: Pulse Respiration Blood pressure Weight 64/minute 12/minute 100/60 76.2 kg Jacqueline Candelario APRN.TECHNICAL COMMUNICATOR 11/19/2023 10:26 AM Signed Chief Complaint Patient presents with: Hypertension HPI Tia Blanco is a 68 year old female who presents here today for Above Complaints. Tia is an established patient of Dr. Charan Do and myself. Concerns today... Per visit on 11/13: ASSESSMENT/PLAN: 1. Essential hypertension, benign - ICD9: 401.1, ICD10: I10 (primary diagnosis) - Uncontrolled - Increase losartan to 50 mg daily - Recommend home blood pressure monitoring, to bring results to next visit - Encouraged sodium restriction, DASH or Mediterranean diet - Recommend regular aerobic exercise - Follow up in 2 weeks for hypertension visit - LOSARTAN 50 MG TABLET - COMP METABOLIC PANEL - CBC + DIFF - LIPID PANEL BASIC In office today... HTN-- Pt saw Dr. Overton, her BP doctor she saw after her stroke last year. Appointment yesterday for HTN. Pt was switched back to prior regimen of carvadilol 6.25 mg BID and spirolactone 25 mg at bedtime. Pt was on this regimen prior and it worked well at stabilizing BP. While hospitalized in June she was taken off of all of her HTN medications and never restarted due BP stable at that time. Pt started this new medication regimen today. BP normal in office today. Has follow-up with Dr. Overton in 2 weeks and in February. Also has vascular appointment with December 01. Pt reports dizziness off and on and denies any dizziness today since taking her medications. Last 14 Encounter BP Readings: Date: BP: 11/19/2023 100/60 11/13/2023 160/70 10/29/2023 150/62 09/14/2023 124/80 07/15/2023 126/74 06/26/2023 122/60 06/19/2023 118/68 04/30/2023 132/82 03/18/2023 130/80 12/10/2022 138/80 11/05/2022 110/62 09/10/2022 120/80 02/19/2022 160/80 01/31/2022 156/84 Pt very tearful during interview. Feels anxious about possibility of stroke reoccurring at any time in the future. Refuses to go on daily SSRI/SNRI. No other concerns or complaints. Past medical history, appointments, medications, allergies reviewed. Previous Medical History PAST MEDICAL HISTORY Diagnosis Date Aortic stenosis, moderate 08/2019 Benign hypertensive heart disease Celiac disease Diabetes mellitus without mention of complication Diabetes mellitus Fatty liver Grave's disease IBS (irritable bowel syndrome) Medical marijuana use has card Ulcerative colitis, unspecified Vitamin D deficiency Previous Surgical History PAST SURGICAL HISTORY Procedure Laterality Date COLONOSCOPY FLX DX W/COLLJ SPEC WHEN PFRMD 09/09/2013 Colonoscopy ESOPHAGOGASTRODUODEN OSCOPY TRANSORAL DIAGNOSTIC 09/09/2013 EGD INFUSE RADIOACTIVE MATERIALS Iodine ablation for Grave's disease LAP UMBILICAL HERNIA REPAIR 02/17/2000 Lap umbilical hernia with a 19cm mesh LAPAROSCOPY SURG CHOLECYSTECTOMY 03/01/2007 Lap Mary with visiport RUQ insertion LIG/TRNSXJ FLP TUBE ABDL/VAG APPR UNI/BI Tubal ligation Family History FAMILY HISTORY Problem Relation Age of Onset Cervical Cancer Sister Diabetes Father Psychiatry Mother Hypertension Father Heart Mother Heart Father Alzheimer's Disease Mother Breast Cancer Sister Patient Allergies ALLERGIES Allergen Reactions Asa [Salicylates] Gluten Unknown Metformin nausea.. can take name brand Prednisone Itching Sulfa (Sulfonamide * Current Medications Current Outpatient Medications on File Prior to Visit Medication Sig losartan (COZAAR) 50 mg tablet Take 1 tablet by mouth once daily. semaglutide (OZEMPIC) 1 mg/dose (4 mg/3 mL) pen Inject 1 mg subcutaneously one time a week. flash glucose scanning reader ([employer] TARA 2 READER) 1 Device as directed. Type 2 diabetes uncontrolled, no insulin ARMOUR THYROID 120 mg tablet Take 1 tablet PO daily in AM glimepiride (AMARYL) 2 mg tablet Take 1 tablet by mouth two times a day with meals. semaglutide (OZEMPIC) 2 mg/dose (8 mg/3 mL) pen injector Inject 2 mg subcutaneously one time a week. atorvastatin (LIPITOR) 80 mg tablet Take 1 tablet by mouth once daily. clopidogrel (PLAVIX) 75 mg tablet Take 1 tablet by mouth once daily. blood sugar diagnostic (FREESTYLE LITE STRIPS) test strip Test blood sugar(s) 8 times daily. Dx: E11.65. Insulin: No elderberry fruit 350 mg cap Take 1 capsule by mouth once daily. ondansetron orally disintegrating (ZOFRAN ODT) 4 mg disintegrating tablet Take 1 tablet by mouth every 8 hours as needed for nausea/vomiting. ergocalciferol 50,000 unit capsule (VITAMIN D2, DRISDOL) Take 1 capsule by mouth two times a week. Blood Pressure Mon (more content not included)... Normal [facility] 11-19-2023 [facility] Telephone (FAMPWS) TIA BLANCO ([id number]) 1955 F Date Time Provider Department 11/19/23 JACQUELINE CANDELARIO [facility] During your visit today, we recorded the following information about you: Jacqueline Candelario APRN.CNP 11/19/2023 11:29 AM Signed We discussed lab results at appointment today. Thank you, Jacqueline Candelario APRN.CNP Allergies As of Date: 11/19/2023 Noted Allergy Reaction ASA (SALICYLATES) 01/05/2006 GLUTEN 10/17/2016 16 - Unknown METFORMIN 06/20/2010 Comments: nausea.. can take name brand PREDNISONE 10/02/2012 9 - Itching SULFA (SULFONAMIDE ANTIBIOTICS) 12/29/2005 Date Reviewed: 11/19/2023 Reviewed by: Candelario, Jacqueline, INFRASTRUCTURE DESIGN ENGINEER.TECHNICAL COMMUNICATOR - Fully Assessed Prescriptions as of 11/19/2023 - spironolactone (ALDACTONE) 25 mg tablet Take 25 mg by mouth once daily. - carvedilol (COREG) 6.25 mg tablet Take 6.25 mg by mouth two times a day with meals. - semaglutide (OZEMPIC) 1 mg/dose (4 mg/3 mL) pen Inject 1 mg subcutaneously one time a week. - flash glucose scanning reader (FREESTYLE TARA 2 READER) 1 Device as directed. Type 2 diabetes uncontrolled, no insulin - ARMOUR THYROID 120 mg tablet Take 1 tablet PO daily in AM - glimepiride (AMARYL) 2 mg tablet Take 1 tablet by mouth two times a day with meals. - semaglutide (OZEMPIC) 2 mg/dose (8 mg/3 mL) pen injector Inject 2 mg subcutaneously one time a week. - atorvastatin (LIPITOR) 80 mg tablet Take 1 tablet by mouth once daily. - clopidogrel (PLAVIX) 75 mg tablet Take 1 tablet by mouth once daily. - blood sugar diagnostic (FREESTYLE LITE STRIPS) test strip Test blood sugar(s) 8 times daily. Dx: E11.65. Insulin: No - elderberry fruit 350 mg cap Take 1 capsule by mouth once daily. - ondansetron orally disintegrating (ZOFRAN ODT) 4 mg disintegrating tablet Take 1 tablet by mouth every 8 hours as needed for nausea/vomiting. - ergocalciferol 50,000 unit capsule (VITAMIN D2, DRISDOL) Take 1 capsule by mouth two times a week. - Blood Pressure Monitor (BLOOD PRESSURE KIT) 1 Each as directed. Dx: essential hypertension - blood sugar diagnostic (BLOOD GLUCOSE TEST) test strip Test blood sugar(s) 2 times daily. Dx: Type 2 DM - Uncontrolled E11.65 Insulin: No - Lancets lancets Test blood sugar(s) 2 times daily. Dx: Type 2 DM - Uncontrolled E11.65 Insulin: No - Lancets (FREESTYLE LANCETS) lancets Test blood sugar(s) 2 times daily. Dx: 250.02. Insulin: No Problem List As Of Date 11/19/2023 Noted Resolved Diabetes mellitus type 2, controlled, without c*07/13/2006 12/08/2022 BENIGN HYPERTENSION [I10] 07/13/2006 ADJUSTMENT DISORDER WITH DEPRESSED MOOD [F43.21]07/13/2006 ANXIETY STATE NOS [F41.1] 07/13/2006 Hypothyroidism [E03.9] 07/13/2006 Abdominal pain, right upper quadrant [R10.11] 02/16/2007 12/08/2022 Tobacco Use Disorder [F17.200] 10/29/2009 Celiac disease [K90.0] 11/06/2009 Fatigue [R53.83] 09/07/2017 Medial epicondylitis, left [M77.02] 09/07/2017 Controlled type 2 diabetes mellitus without com*10/12/2018 12/08/2022 Situational anxiety [F41.8] 10/12/2018 Dyslipidemia [E78.5] 10/12/2018 Aortic stenosis, moderate [I35.0] 08/2019 Uncontrolled type 2 diabetes mellitus with hype*05/21/2020 Palpitations [R00.2] 02/19/2022 Uncontrolled hypertension [I10] 02/19/2022 Vitamin B12 deficiency [E53.8] 09/10/2022 Vitamin D deficiency [E55.9] 09/10/2022 History of tobacco abuse [Z87.891] 03/18/2023 Encounter Status:Closed by JACQUELINE CANDELARIO on 11/19/23 [facility] 11-18[facility]2023 [facility] T[facility] BLANCO ([id number]) 1955 F Date Time Provider Department 11/18/[facility] During your visit today, we recorded the following information about you: Jacqueline Candelario APRN.TECHNICAL COMMUNICATOR 11/18/2023 1:36 PM Signed Please call patient and let her know that lab work results look good! hgA1c remains stable. Continue on current regimen. Thyroid labs are all normal, continue on current regimen. No concerns at all. Thank you, Jacqueline Candelario APRN.TECHNICAL COMMUNICATOR Sofia Harrison 11/18/2023 1:43 PM Signed Pt informed, verbalized understanding Sofia Harrison Allergies As of Date: 11/18/2023 Noted Allergy Reaction ASA (SALICYLATES) 01/05/2006 GLUTEN 10/17/2016 16 - Unknown METFORMIN 06/20/2010 Comments: nausea.. can take name brand PREDNISONE 10/02/2012 9 - Itching SULFA (SULFONAMIDE ANTIBIOTICS) 12/29/2005 Date Reviewed: 11/13/2023 Reviewed by: Jacqueline Candelario APRN.TECHNICAL COMMUNICATOR - Fully Assessed Reason for Visit: Results [95] Prescriptions as of 11/18/2023 - losartan (COZAAR) 50 mg tablet Take 1 tablet by mouth once daily. - semaglutide (OZEMPIC) 1 mg/dose (4 mg/3 mL) pen Inject 1 mg subcutaneously one time a week. - flash glucose scanning reader (FREESTYLE TARA 2 READER) 1 Device as directed. Type 2 diabetes uncontrolled, no insulin - ARMOUR THYROID 120 mg tablet Take 1 tablet PO daily in AM - glimepiride (AMARYL) 2 mg tablet Take 1 tablet by mouth two times a day with meals. - semaglutide (OZEMPIC) 2 mg/dose (8 mg/3 mL) pen injector Inject 2 mg subcutaneously one time a week. - atorvastatin (LIPITOR) 80 mg tablet Take 1 tablet by mouth once daily. - clopidogrel (PLAVIX) 75 mg tablet Take 1 tablet by mouth once daily. - blood sugar diagnostic (FREESTYLE LITE STRIPS) test strip Test blood sugar(s) 8 times daily. Dx: E11.65. Insulin: No - elderberry fruit 350 mg cap Take 1 capsule by mouth once daily. - ondansetron orally disintegrating (ZOFRAN ODT) 4 mg disintegrating tablet Take 1 tablet by mouth every 8 hours as needed for nausea/vomiting. - ergocalciferol 50,000 unit capsule (VITAMIN D2, DRISDOL) Take 1 capsule by mouth two times a week. - Blood Pressure Monitor (BLOOD PRESSURE KIT) 1 Each as directed. Dx: essential hypertension - blood sugar diagnostic (BLOOD GLUCOSE TEST) test strip Test blood sugar(s) 2 times daily. Dx: Type 2 DM - Uncontrolled E11.65 Insulin: No - Lancets lancets Test blood sugar(s) 2 times daily. Dx: Type 2 DM - Uncontrolled E11.65 Insulin: No - Lancets (FREESTYLE LANCETS) lancets Test blood sugar(s) 2 times daily. Dx: 250.02. Insulin: No Problem List As Of Date 11/18/2023 Noted Resolved Diabetes mellitus type 2, controlled, without c*07/13/2006 12/08/2022 BENIGN HYPERTENSION [I10] 07/13/2006 ADJUSTMENT DISORDER WITH DEPRESSED MOOD [F43.21]07/13/2006 ANXIETY STATE NOS [F41.1] 07/13/2006 Hypothyroidism [E03.9] 07/13/2006 Abdominal pain, right upper quadrant [R10.11] 02/16/2007 12/08/2022 Tobacco Use Disorder [F17.200] 10/29/2009 Celiac disease [K90.0] 11/06/2009 Fatigue [R53.83] 09/07/2017 Medial epicondylitis, left [M77.02] 09/07/2017 Controlled type 2 diabetes mellitus without com*10/12/2018 12/08/2022 Situational anxiety [F41.8] 10/12/2018 Dyslipidemia [E78.5] 10/12/2018 Aortic stenosis, moderate [I35.0] 08/2019 Uncontrolled type 2 diabetes mellitus with hype*05/21/2020 Palpitations [R00.2] 02/19/2022 Uncontrolled hypertension [I10] 02/19/2022 Vitamin B12 deficiency [E53.8] 09/10/2022 Vitamin D deficiency [E55.9] 09/10/2022 History of tobacco abuse [Z87.891] 03/18/2023 Encounter Status:Closed by SOFIA HARRISON on 11/18/23 Normal [facility] HbA1c (Bld)on 11-16-2023 Average glucose Estimated from glycated hemoglobin (Bld) [Mass/Vol] 137 mg/dL Normal [facility] Comment on above: Order Comment: Speci men Type: BLOOD SPECIMENOrdering Facility: [facility] Address: [address] [place] [address] Result Comment: eAG: (Estimated average glucose) is a calculated value from HgbA1c and is hardware supplies sales representative of the average blood glucose level in the last 2-3 month period. Performed By: #### 5 5454-3 ####[facility] LABCLIA [id number] [place] [address] [place] HbA1c (Bld) [Mass fraction] 6.4 % High 4.3-5.6 [facility] Comment on above: Order Comment: Speci men Type: BLOOD SPECIMENOrdering Facility: [facility] Address: [address] [place] [address] Result Comment: Amer [place] Diabetes Association guidelines indicate that patients with HgbA1c in the range 5.7-6.4% are at increased risk for development of diabetes, and intervention by lifestyle modification may be beneficial. HgbA1c greater or equal to 6.5% is considered diagnostic of diabetes. Performed By: #### 5 5454-3 ####[facility] LABCLIA [id number] [place] [address] [place] T3 SerPl-mCncon 11-16-2023 T3 [Mass/Vol] 162 ng/dL Normal 79-165 [facility] Comment on above: Order Comment: Speci men Type: BLOOD SPECIMENOrdering Facility: [facility] Address: [address] [place] [address] Performed By: #### 3 016-3, 3024-7, 3053-6 ####[facility] LABIA [id number] [place] [address] [place] T4 Free SerPl-mCncon 024 Free T4 [Mass/Vol] 0.9 ng/dL Normal 0.9-1.7 [facility] Comment on above: Order Comment: Speci men Type: BLOOD SPECIMENOrdering Facility: [facility] Address: [address] [place] [address] Performed By: #### 3 016-3, 3024-7, 3053-6 ####[facility] LABCLIA [id number] [place] [address] [place] TSH SerPl-aCncon 11-16-2023 TSH Qn 0.882 m[IU]/L Normal 0.270-4.200 [facility] Comment on above: Order Comment: Speci men Type: BLOOD SPECIMENOrdering Facility: [facility] Address: [address] [place] [address] Performed By: #### 3 016-3, 3024-7, 3053-6 ####[facility] LABCLIA [id number] [place] [address] [place] ALBUMIN/CREAT RATIO RND URon 11-13-2023 Albumin DL <= 20 mg/L (U) [Mass/Vol] mg/dL Normal [facility] Comment on above: Order Comment: Speci men Type: URINE SPECIMENOrdering Facility: [facility] Address: [address] [place] [address] Performed By: #### U ACR ####[facility] LABCLIA [id number] [address] [place] Albumin/Creatinine (U) [Mass ratio] Normal [facility] Comment on above: Order Comment: Speci men Type: URINE SPECIMENOrdering Facility: [facility] Address: [address] [place] [address] Result Comment: Not calculated Adult Male and Female Nephrotic Criteria: <30 mg/g is considered normal to mildly increased 30-300 mg/g is considered moderately increased >300 mg/g is considered severely increased KDIGO. (2013). KDIGO 2012 Clinical Practice Guideline for the Evaluation and Management of Chronic Kidney Disease. Official Journal of the International Society of Nephrology, 3(1), 1-150. Performed By: #### U ACR ####[facility] LABCLIA [id number] [place] [address] [place] Creatinine (U) [Mass/Vol] 18.0 mg/dL Low 20.0-300.0 [facility] Comment on above: Order Comment: Speci men Type: URINE SPECIMENOrdering Facility: [facility] Address: [address] [place] [address] Performed By: #### U ACR ####[facility] LABCLIA [id number] [facility] [id number] [address] [place] CBC W Auto Differential pane l (Bld)on 11-13-2023 Basophils (Bld) [#/Vol] 0.06 10*3/uL <0.11 k/uL [facility] Basophils/100 WBC (Bld) 0.6 % [facility] Differential cell count method Nom (Bld) Auto [facility] Eosinophils (Bld) [#/Vol] 0.08 10*3/uL <0.46 k/uL [facility] Eosinophils/100 WBC (Bld) 0.8 % [facility] Erythrocyte distribution width (RBC) [Ratio] 13.0 % 11.5 - 15.0 % [facility] Hematocrit (Bld) [Volume fraction] 41.7 % 36.0 - 46.0 % [facility] Hemoglobin (Bld) [Mass/Vol] 14.0 g/dL 11.5 - 15.5 g/dL [facility] Immature granulocytes (Bld) [#/Vol] 0.03 10*3/uL <0.10 k/uL [facility] Immature granulocytes/100 WBC (Bld) 0.3 % [facility] Lymphocytes (Bld) [#/Vol] 1.73 10*3/uL 1.00 - 4.00 k/uL [facility] Lymphocytes/100 WBC (Bld) 17.5 % [facility] MCH (RBC) [Entitic mass] 30.9 pg 26.0 - 34.0 pg [facility] MCHC (RBC) [Mass/Vol] 33.6 g/dL 30.5 - 36.0 g/dL [facility] MCV (RBC) [Entitic vol] 92.1 fL 80.0 - 100.0 fL [facility] Monocytes (Bld) [#/Vol] 0.63 10*3/uL <0.87 k/uL [facility] Monocytes/100 WBC (Bld) 6.4 % [facility] Neutrophils (Bld) [#/Vol] 7.35 10*3/uL 1.45 - 7.50 k/uL [facility] Neutrophils/100 WBC (Bld) 74.4 % [facility] Nucleated RBC (Bld) [#/Vol] <0.01 k/uL [facility] Nucleated RBC/100 WBC (Bld) [Ratio] 0.0 /100 WBC [facility] Platelet mean volume (Bld) [Entitic vol] 9.9 fL 9.0 - 12.7 fL [facility] Platelets (Bld) [#/Vol] 368 10*3/uL 150 - 400 k/uL [facility] RBC (Bld) [#/Vol] 4.53 10*6/uL 3.90 - 5.20 m/uL [facility] WBC (Bld) [#/Vol] 9.88 10*3/uL 3.70 - 11. 00 k/uL [facility] Basophils (Bld) [#/Vol] 0.06 10*3/uL Normal <0.11 [facility] Comment on above: Order Comment: Speci men Type: BLOOD SPECIMENOrdering Facility: [facility] Address: [address] [place] [address] Performed By: #### 5 7021-8 ####[facility] LABCLIA [id number] [place] [address] [place] Basophils/100 WBC (Bld) 0.6 % Normal [facility] Comment on above: Order Comment: Speci men Type: BLOOD SPECIMENOrdering Facility: [facility] Address: [address] [place] [address] Performed By: #### 5 7021-8 ####[facility] LABCLIA [id number] [place] [address] [place] Differential cell count method Nom (Bld) Auto Normal [facility] Comment on above: Order Comment: Speci men Type: BLOOD SPECIMENOrdering Facility: [facility] Address: [address] [place] [address] Performed By: #### 5 7021-8 ####[facility] LABCLIA [id number] [place] [address] [place] Eosinophils (Bld) [#/Vol] 0.08 10*3/uL Normal <0.46 [facility] Comment on above: Order Comment: Speci men Type: BLOOD SPECIMENOrdering Facility: [facility] Address: [address] [place] [address] Performed By: #### 5 7021-8 ####[facility] LABIA [id number] [place] [address] [place] Eosinophils/100 WBC (Bld) 0.8 % Normal [facility] Comment on above: Order Comment: Speci men Type: BLOOD SPECIMENOrdering Facility: [facility] Address: [address] [place] [address] Performed By: #### 5 7021-8 ####[facility] LABIA [id number] [place] [address] [place] Erythrocyte distribution width (RBC) [Ratio] 13.0 % Normal 11.5-15.0 [facility] Comment on above: Order Comment: Speci men Type: BLOOD SPECIMENOrdering Facility: [facility] Address: [address] [place] [address] Performed By: #### 5 7021-8 ####[facility] LABIA [id number] [place] [address] [place] Hematocrit (Bld) [Volume fraction] 41.7 % Normal 36.0-46.0 [facility] Comment on above: Order Comment: Speci men Type: BLOOD SPECIMENOrdering Facility: [facility] Address: [address] [place] [address] Performed By: #### 5 7021-8 ####[facility] LABIA [id number] [place] [address] [place] Hemoglobin (Bld) [Mass/Vol] 14.0 g/dL Normal 11.5-15.5 [facility] Comment on above: Order Comment: Speci men Type: BLOOD SPECIMENOrdering Facility: [facility] Address: [address] [place] [address] Performed By: #### 5 7021-8 ####[facility] LABCLIA [id number] [place] [address] [place] Immature granulocytes (Bld) [#/Vol] 0.03 10*3/uL Normal <0.10 [facility] Comment on above: Order Comment: Speci men Type: BLOOD SPECIMENOrdering Facility: [facility] Address: [address] [place] [address] Performed By: #### 5 7021-8 ####[facility] LABCLIA [id number] [place] [address] [place] Immature granulocytes/100 WBC (Bld) 0.3 % Normal [facility] Comment on above: Order Comment: Speci men Type: BLOOD SPECIMENOrdering Facility: [facility] Address: [address] [place] [address] Performed By: #### 5 7021-8 ####[facility] LABCLIA [id number] [place] [address] [place] Lymphocytes (Bld) [#/Vol] 1.73 10*3/uL Normal 1.00-4.00 [facility] Comment on above: Order Comment: Speci men Type: BLOOD SPECIMENOrdering Facility: [facility] Address: [address] [place] [address] Performed By: #### 5 7021-8 ####[facility] LABCLIA [id number] [place] [address] [place] Lymphocytes/100 WBC (Bld) 17.5 % Normal [facility] Comment on above: Order Comment: Speci men Type: BLOOD SPECIMENOrdering Facility: [facility] Address: [address] [place] [address] Performed By: #### 5 7021-8 ####[facility] LABCLIA [id number] [place] [address] [place] MCH (RBC) [Entitic mass] 30.9 pg Normal 26.0-34.0 [facility] Comment on above: Order Comment: Speci men Type: BLOOD SPECIMENOrdering Facility: [facility] Address: [address] [place] [address] Performed By: #### 5 7021-8 ####[facility] LABIA [id number] [place] [address] [place] MCHC (RBC) [Mass/Vol] 33.6 g/dL Normal 30.5-36.0 [facility] Comment on above: Order Comment: Speci men Type: BLOOD SPECIMENOrdering Facility: [facility] Address: [address] [place] [address] Performed By: #### 5 7021-8 ####[facility] [id number] [place] [address] [place] MCV (RBC) [Entitic vol] 92.1 fL Normal 80.0-100.0 [facility] Comment on above: Order Comment: Speci men Type: BLOOD SPECIMENOrdering Facility: [facility] Address: [address] [place] [address] Performed By: #### 5 7021-8 ####[facility] [id number] [place] [address] [place] Monocytes (Bld) [#/Vol] 0.63 10*3/uL Normal <0.87 [facility] Comment on above: Order Comment: Speci men Type: BLOOD SPECIMENOrdering Facility: [facility] Address: [address] [place] [address] Performed By: #### 5 7021-8 ####[facility] LABIA [id number] [place] [address] [place] Monocytes/100 WBC (Bld) 6.4 % Normal [facility] Comment on above: Order Comment: Speci men Type: BLOOD SPECIMENOrdering Facility: [facility] Address: [address] [place] [address] Performed By: #### 5 7021-8 ####[facility] LABCLIA [id number] [place] [address] [place] Neutrophils (Bld) [#/Vol] 7.35 10*3/uL Normal 1.45-7.50 [facility] Comment on above: Order Comment: Speci men Type: BLOOD SPECIMENOrdering Facility: [facility] Address: [address] [place] [address] Performed By: #### 5 7021-8 ####[facility] LABCLIA [id number] [place] [address] [place] Neutrophils/100 WBC (Bld) 74.4 % Normal [facility] Comment on above: Order Comment: Speci men Type: BLOOD SPECIMENOrdering Facility: [facility] Address: [address] [place] [address] Performed By: #### 5 7021-8 ####[facility] LABCLIA [id number] [place] [address] [place] Nucleated RBC (Bld) [#/Vol] 10*3/uL Normal <0.01 [facility] Comment on above: Order Comment: Speci men Type: BLOOD SPECIMENOrdering Facility: [facility] Address: [address] [place] [address] Performed By: #### 5 7021-8 ####[facility] LABCLIA [id number] [place] [address] [place] Nucleated RBC/100 WBC (Bld) [Ratio] 0.0 /100 WBC Normal [facility] Comment on above: Order Comment: Speci men Type: BLOOD SPECIMENOrdering Facility: [facility] Address: [address] [place] [address] Performed By: #### 5 7021-8 ####[facility] LABCLIA [id number] [place] [address] [place] Platelet mean volume (Bld) [Entitic vol] 9.9 fL Normal 9.0-12.7 [facility] Comment on above: Order Comment: Speci men Type: BLOOD SPECIMENOrdering Facility: [facility] Address: [address] [place] [address] Performed By: #### 5 7021-8 ####[facility] LABCLIA [id number] [place] [address] [place] Platelets (Bld) [#/Vol] 368 10*3/uL Normal 150-400 [facility] Comment on above: Order Comment: Speci men Type: BLOOD SPECIMENOrdering Facility: [facility] Address: [address] [place] [address] Performed By: #### 5 7021-8 ####[facility] LABIA [id number] [place] [address] [place] RBC (Bld) [#/Vol] 4.53 10*6/uL Normal 3.90-5.20 [facility] Comment on above: Order Comment: Speci men Type: BLOOD SPECIMENOrdering Facility: [facility] Address: [address] [place] [address] Performed By: #### 5 7021-8 ####[facility] LABIA [id number] [place] [address] [place] WBC (Bld) [#/Vol] 9.88 10*3/uL Normal 3.70-11.00 [facility] Comment on above: Order Comment: Speci men Type: BLOOD SPECIMENOrdering Facility: [facility] Address: [address] [place] [address] Performed By: #### 5 7021-8 ####[facility] LABIA [id number] [place] [address] [place] CNOVon 11-13-2023 CNOV Office Visit (FAMPWS) TIA BLANCO ([id number]) 1955 F Date Time Provider Department 11/13/23 9:00 AM JACQUELINE CANDELARIO During your visit today, we recorded the following information about you: Pulse Respiration Blood pressure Weight 64/minute 16/minute 160/70 76.2 kg Jacqueline Candelario APRN.TECHNICAL COMMUNICATOR 11/13/2023 10:50 AM Signed Chief Complaint Patient presents with: Blood Pressure HPI Tia Blanco is a 68 year old female who presents here today for Above Complaints. Tia is an established patient of Dr. Charan Do and myself. Concerns today.. HTN -- Was seen on 10/29 d/t elevated BP readings at home. Per note: ASSESSMENT/PLAN: 1. Essential hypertension, benign - ICD9: 401.1, ICD10: I10 - Worsening control - Start /restart losartan low dose of 25 mg daily. - Recommend home blood pressure monitoring, to bring results to next visit - Encouraged sodium restriction, DASH or Mediterranean diet - Recommend regular aerobic exercise - Reviewed risks of hypertension and principles of treatment - Follow up in 4 weeks for hypertension visit - LOSARTAN 25 MG TABLET RTO in 1 months, sooner if needed. Today in office... She states compliant with current blood pressure medication(s): losartan 25 mg daily. She does check BP at home daily about 1 hour after taking medications. Average home readings: 126-156/70-80s, until the last 2-3 days have been 160s/80s. Pt does report headache daily x 3 days which she can tell is related to elevated BP. She denies chest pain, shortness of breath, palpitations, dizziness, leg edema, or vision changes. Last 14 Encounter BP Readings: Date: BP: 11/13/2023 160/70 10/29/2023 150/62 09/14/2023 124/80 07/15/2023 126/74 06/26/2023 122/60 06/19/2023 118/68 04/30/2023 132/82 03/18/2023 130/80 12/10/2022 138/80 11/05/2022 110/62 09/10/2022 120/80 02/19/2022 160/80 01/31/2022 156/84 01/23/2022 182/96 Pt also concerned d/t blood sugar elevated in the 200s this morning. Pt reports in general she feels like her blood sugars are slowly rising. Past medical history, appointments, medications, allergies reviewed. Previous Medical History PAST MEDICAL HISTORY Diagnosis Date Aortic stenosis, moderate 08/2019 Benign hypertensive heart disease Celiac disease Diabetes mellitus without mention of complication Diabetes mellitus Fatty liver Grave's disease IBS (irritable bowel syndrome) Medical marijuana use has card Ulcerative colitis, unspecified Vitamin D deficiency Previous Surgical History PAST SURGICAL HISTORY Procedure Laterality Date COLONOSCOPY FLX DX W/COLLJ SPEC WHEN PFRMD 09/09/2013 Colonoscopy ESOPHAGOGASTRODUODEN OSCOPY TRANSORAL DIAGNOSTIC 09/09/2013 EGD INFUSE RADIOACTIVE MATERIALS Iodine ablation for Grave's disease LAP UMBILICAL HERNIA REPAIR 02/17/2000 Lap umbilical hernia with a 19cm mesh LAPAROSCOPY SURG CHOLECYSTECTOMY 03/01/2007 Lap Mary with visiport RUQ insertion LIG/TRNSXJ FLP TUBE ABDL/VAG APPR UNI/BI Tubal ligation Family History FAMILY HISTORY Problem Relation Age of Onset Cervical Cancer Sister Diabetes Father Psychiatry Mother Hypertension Father Heart Mother Heart Father Alzheimer's Disease Mother Breast Cancer Sister Patient Allergies ALLERGIES Allergen Reactions Asa [Salicylates] Gluten Unknown Metformin nausea.. can take name brand Prednisone Itching Sulfa (Sulfonamide * Current Medications Current Outpatient Medications on File Prior to Visit Medication Sig losartan (COZAAR) 25 mg tablet Take 1 tablet by mouth once daily. semaglutide (OZEMPIC) 1 mg/dose (4 mg/3 mL) pen Inject 1 mg subcutaneously one time a week. flash glucose scanning reader (QuixbySTZyngenia TARA 2 READER) 1 Device as directed. Type 2 diabetes uncontrolled, no insulin ARMOUR THYROID 120 mg tablet Take 1 tablet PO daily in AM glimepiride (AMARYL) 2 mg tablet Take 1 tablet by mouth two times a day with meals. semaglutide (OZEMPIC) 2 mg/dose (8 mg/3 mL) pen injector Inject 2 mg subcutaneously one time a week. atorvastatin (LIPITOR) 80 mg tablet Take 1 tablet by mouth once daily. clopidogrel (PLAVIX) 75 mg tablet Take 1 tablet by mouth once daily. blood sugar diagnostic (FREESTYLE LITE STRIPS) test strip Test blood sugar(s) 8 times daily. Dx: E11.65. Insulin: No elderberry fruit 350 mg cap Take 1 capsule by mouth once daily. ondansetron orally disintegrating (ZOFRAN ODT) 4 mg disintegrating tablet Take 1 tablet by mouth every 8 hours as needed for nausea/vomiting. ergocalciferol 50,000 unit capsule (VITAMIN D2, DRISDOL) Take 1 capsule by mouth two times a week. Blood Pressure Monitor (BLOOD PRESSURE KIT) 1 Each as directed. Dx: essential hypertension blood sugar diagnostic (BLOOD GLUCOSE TEST) test strip Test blood sugar(s) 2 times daily. Dx: Type 2 DM - Uncontrolled E11.65 Insuli (more content not included)... Normal [facility] Comprehensive metabolic 2000 panelon 11-13-2023 Albumin [Mass/Vol] 4.6 g/dL Normal 3.9-4.9 [facility] Comment on above: Order Comment: Speci men Type: BLOOD SPECIMENOrdering Facility: [facility] Address: [address] [place] [address] Performed By: #### 3 024-7, 19182-0, 25581-2, 3053-6 ####[facility] [id number] [place] [address] [place] ALP [Catalytic activity/Vol] 103 U/L Normal 34-123 [facility] Comment on above: Order Comment: Speci men Type: BLOOD SPECIMENOrdering Facility: [facility] Address: [address] [place] [address] Performed By: #### 3 024-7, 74712-6, 67268-8, 3053-6 ####[facility] [id number] [place] [address] [place] ALT [Catalytic activity/Vol] 18 U/L Normal 7-38 [facility] Comment on above: Order Comment: Speci men Type: BLOOD SPECIMENOrdering Facility: [facility] Address: [address] [place] [address] Performed By: #### 3 024-7, 85256-5, 79957-7, 3053-6 ####[facility]CL[facility] [id number] [place] [address] [place] Anion gap [Moles/Vol] 12 mmol/L Normal 9-18 [facility] Comment on above: Order Comment: Speci men Type: BLOOD SPECIMENOrdering Facility: [facility] Address: [address] [place] [address] Performed By: #### 3 024-7, 16589-6, 76173-3, 3053-6 ####[facility] [id number] [place] [address] [place] AST [Catalytic activity/Vol] 19 U/L Normal 13-35 [facility] Comment on above: Order Comment: Speci men Type: BLOOD SPECIMENOrdering Facility: [facility] Address: [address] [place] [address] Performed By: #### 3 024-7, 10952-6, 20877-3, 3053-6 ####[facility] [id number] [place] [address] [place] Bilirubin [Mass/Vol] 0.4 mg/dL Normal 0.2-1.3 [facility] Comment on above: Order Comment: Speci men Type: BLOOD SPECIMENOrdering Facility: [facility] Address: [address] [place] [address] Performed By: #### 3 024-7, 20028-4, 64233-8, 3053-6 ####[facility] [id number] [place] [address] [place] Calcium [Mass/Vol] 10.1 mg/dL Normal 8.5-10.2 [facility] Comment on above: Order Comment: Speci men Type: BLOOD SPECIMENOrdering Facility: [facility] Address: [address] [place] [address] Performed By: #### 3 024-7, 87027-3, 48155-2, 3053-6 ####[facility] [id number] [place] [address] [place] Chloride [Moles/Vol] 100 mmol/L Normal 97-105 [facility] Comment on above: Order Comment: Speci men Type: BLOOD SPECIMENOrdering Facility: [facility] Address: [address] [place] [address] Performed By: #### 3 024-7, 77214-6, 99573-6, 3053-6 ####[facility] [id number] [place] [address] [place] CO2 [Moles/Vol] 27 mmol/L Normal 22-30 [facility] Comment on above: Order Comment: Speci men Type: BLOOD SPECIMENOrdering Facility: [facility] Address: [address] [place] [address] Performed By: #### 3 024-7, 53466-7, 23293-1, 3053-6 ####[facility] [id number] [place] [address] [place] Creatinine [Mass/Vol] 0.53 mg/dL Low 0.58-0.96 [facility] Comment on above: Order Comment: Speci men Type: BLOOD SPECIMENOrdering Facility: [facility] Address: [address] [place] [address] Performed By: #### 3 024-7, 11057-7, 48959-8, 3053-6 ####[facility] [id number] [place] [address] [place] Creatinine and Glomerular filtration rate.predicted panel (S/P/Bld) 101 mL/min/1.73m??? Normal >=60 [facility] Comment on above: Order Comment: Speci men Type: BLOOD SPECIMENOrdering Facility: [facility] Address: [address] [place] [address] Result Comment: Ana Paula mated Glomerular Filtration Rate (eGFR) is calculated using the 2020 CKD-EPI creatinine equation. This equation utilizes serum creatinine, sex, and age as parameters. The creatinine assay has traceable calibration to isotope dilution-mass spectrometry. Refer to KDIGO guidelines for clinical interpretation. In patients with unstable renal function, e.g. those with acute kidney injury, the eGFR may not accurately reflect actual GFR. Performed By: #### 3 024-7, 97565-9, 91288-1, 305-6 ####[facility] [id number] [place] [address] [place] Glucose [Mass/Vol] 179 mg/dL High 74-99 [facility] Comment on above: Order Comment: Speclillian men Type: BLOOD SPECIMENOrdering Facility: [facility] Address: [address] [place] [address] Result Comment: The [place] Diabetes Association (ADA) provides guidance for cutoff values for fasting glucose and random glucose. The ADA defines fasting as no caloric intake for at least 8 hours. Fasting plasma glucose results between 100 to 125 mg/dL indicate increased risk for diabetes (prediabetes). Fasting plasma glucose results greater than or equal to 126 mg/dL meet the criteria for diagnosis of diabetes. In the absence of unequivocal hyperglycemia, results should be confirmed by repeat testing. In a patient with classic symptoms of hyperglycemia or hyperglycemic crisis, random plasma glucose results greater than or equal to 200 mg/dL meet the criteria for diagnosis of diabetes. Reference: Standards of Medical Care in Diabetes 2016, [place] Diabetes Association. Diabetes Care. 2016.39(Suppl 1). Performed By: #### 3 024-7, 17854-5, 08989-1, 305-6 ####[facility] [id number] [place] [id number] [place] Potassium [Moles/Vol] 3.7 mmol/L Normal 3.7-5.1 [facility] Comment on above: Order Comment: Speci men Type: BLOOD SPECIMENOrdering Facility: [facility] Address: [address] [place] [address] Performed By: #### 3 024-7, 14707-9, 83534-6, 3053-6 ####[facility] [id number] [address] [address] [place] Protein [Mass/Vol] 7.5 g/dL Normal 6.3-8.0 [facility] Comment on above: Order Comment: Speci men Type: BLOOD SPECIMENOrdering Facility: [facility] Address: [address] [place] [address] Performed By: #### 3 024-7, 31885-4, 83995-3, 3053-6 ####[facility] [id number] [place] [address] [place] Sodium [Moles/Vol] 139 mmol/L Normal 136-144 [facility] Comment on above: Order Comment: Speci men Type: BLOOD SPECIMENOrdering Facility: [facility] Address: [address] [place] [address] Performed By: #### 3 024-7, 10046-5, 52689-7, 3053-6 ####[facility] [id number] [place] [id number] [place] Urea nitrogen [Mass/Vol] 12 mg/dL Normal 7-21 [facility] Comment on above: Order Comment: Speci men Type: BLOOD SPECIMENOrdering Facility: [facility] Address: [address] [place] [address] Performed By: #### 3 024-7, 85346-3, 23976-4, 3053-6 ####[facility] [id number] [place] [id number] [place] HbA1c (Bld)on 11-13-2023 Average glucose Estimated from glycated hemoglobin (Bld) [Mass/Vol] 140 mg/dL [facility] HbA1c (Bld) [Mass fraction] 6.5 % High 4.3 - 5.6 % [facility] Average glucose Estimated from glycated hemoglobin (Bld) [Mass/Vol] 140 mg/dL Normal [facility] Comment on above: Order Comment: Abimbola diaz Type: BLOOD SPECIMENOrdering Facility: [facility] Address: [address] [place] [address] Result Comment: eAG: (Estimated average glucose) is a calculated value from HgbA1c and is hardware supplies sales representative of the average blood glucose level in the last 2-3 month period. Performed By: #### 5 5454-3 ####[facility] [id number] [place] [address] [place] HbA1c (Bld) [Mass fraction] 6.5 % High 4.3-5.6 [facility] Comment on above: Order Comment: Abimbola diaz Type: BLOOD SPECIMENOrdering Facility: [facility] Address: [address] [place] [address] Result Comment: [place] Diabetes Association guidelines indicate that patients with HgbA1c in the range 5.7-6.4% are at increased risk for development of diabetes, and intervention by lifestyle modification may be beneficial. HgbA1c greater or equal to 6.5% is considered diagnostic of diabetes. Performed By: #### 5 5454-3 ####[facility] [id number] [place] [address] [place] Lipid 1996 panelon 4 Cholesterol [Mass/Vol] 121 mg/dL Normal <200 [facility] Comment on above: Order Comment: Abimbola diaz Type: BLOOD SPECIMENOrdering Facility: [facility] Address: [address] [place] [address] Result Comment: <200 mg/dL, Desirable 200-239 mg/dL, Borderline high >239 mg/dL, High Performed By: #### 3 024-7, 96506-4, 25725-3, 3053-6 ####[facility] [id number] [address] [place] Cholesterol in HDL [Mass/Vol] 77 mg/dL Normal >39 [facility] Comment on above: Order Comment: Abimbola emily Type: BLOOD SPECIMENOrdering Facility: [facility] Address: [address] [place] [address] Result Comment: 40-5 9 mg/dL, Acceptable >59 mg/dL, High: Negative risk factor for coronary heart disease <40 mg/dL, Low: Positive risk factor for coronary heart disease Performed By: #### 3 024-7, 82096-1, 67295-4, 3053-6 ####[facility] [id number] [place] [address] [place] Cholesterol in LDL [Mass/Vol] 24 mg/dL Normal <100 [facility] Comment on above: Order Comment: Norylillian diaz Type: BLOOD SPECIMENOrdering Facility: [facility] Address: [address] [place] [address] Result Comment: <100 mg/dL, Optimal 100-129 mg/dL, Near optimal/above optimal 130-159 mg/dL, Borderline high 160-189 mg/dL, High >189 mg/dL, Very high Secondary prevention optimal LDL Cholesterol levels are recommended to be < 70 mg/dL Performed By: #### 3 024-7, 16653-8, 13218-3, 305-6 ####[facility] [id number] [address] [place] Cholesterol in LDL/Cholesterol in HDL [Mass ratio] 0.31 {ratio} Normal <2.54 [facility] Comment on above: Order Comment: Abimbola diaz Type: BLOOD SPECIMENOrdering Facility: [facility] Address: [address] [place] [address] Result Comment: Refe rence: 1. National Cholesterol Education Program ATP III Guideline At-A-Glance Quick Desk Reference: National Heart, Lung, and Blood [place]. National Institutes of Health. 2001: NIH Publication No. 01-3305. 2. An International Atherosclerosis Society position paper: global recommendations for the management of dyslipidemia: executive summary, Atherosclerosis. 2014: 232(2):410-413. Performed By: #### 3 024-7, 43998-0, 31244-6, 3053-6 ####[facility] [id number] [address] [address] [place] Cholesterol in VLDL [Mass/Vol] 20 mg/dL Normal <30 [facility] Comment on above: Order Comment: Speci men Type: BLOOD SPECIMENOrdering Facility: [facility] Address: [address] [place] [address] Performed By: #### 3 024-7, 23649-8, 08878-2, 3053-6 ####[facility] [id number] [address] [address] [place] Cholesterol non HDL [Mass/Vol] 44 mg/dL Normal <130 [facility] Comment on above: Order Comment: Speci men Type: BLOOD SPECIMENOrdering Facility: [facility] Address: [address] [place] [address] Result Comment: <130 mg/dL, Optimal 130-159 mg/dL, Near optimal/above optimal 160-189 mg/dL, Borderline high 190-219 mg/dL, High >219 mg/dL, Very high Secondary prevention optimal non HDL Cholesterol levels are recommended to be <100 mg/dL Performed By: #### 3 024-7, 08746-2, 66296-6, 3053-6 ####[facility] [id number] [address] [address] [place] Cholesterol.total/Ch olesterol in HDL [Mass ratio] 1.57 {ratio} Normal <5.10 [facility] Comment on above: Order Comment: Speci men Type: BLOOD SPECIMENOrdering Facility: [facility] Address: [address] [place], [place] [address] Performed By: #### 3 024-7, 44188-1, 42979-1, 3053-6 ####[facility] [id number] [address] [address] [place] FASTING TIME 12 hrs Normal [facility] Comment on above: Order Comment: Speci men Type: BLOOD SPECIMENOrdering Facility: [facility] Address: [address] [place] [address] Performed By: #### 3 024-7, 39501-9, 51180-9, 305-6 ####[facility] [id number] [place] [address] [place] Triglyceride [Mass/Vol] 99 mg/dL Normal <150 [facility] Comment on above: Order Comment: Speci men Type: BLOOD SPECIMENOrdering Facility: [facility] Address: [address] [place] [address] Result Comment: <150 mg/dL, Normal 150-199 mg/dL, Borderline high 200-499 mg/dL, High >499 mg/dL, Very high Performed By: #### 3 024-7, 04099-7, 79080-7, 305-6 ####[facility] [id number] [place] [address] [place] T3 SerPl-mCncon 11-13-2023 T3 [Mass/Vol] 191 ng/dL High 79-165 [facility] Comment on above: Order Comment: Speci men Type: BLOOD SPECIMENOrdering Facility: [facility] Address: [address] [place] [address] Performed By: #### 3 024-7, 35753-5, 31125-3, 3052-6 ####[facility] [id number] [place] [address] [place] T4 Free SerPl-mCncon 024 Free T4 [Mass/Vol] 1.0 ng/dL Normal 0.9-1.7 [facility] Comment on above: Order Comment: Speci men Type: BLOOD SPECIMENOrdering Facility: [facility] Address: [address] [place] [address] Performed By: #### 3 024-7, 81684-3, 39792-0, 305-6 ####[facility] [id number] [place] [address] [facility] TSH SerPl-aCncon 11-13-2023 TSH Qn 0.324 m[IU]/L Normal 0.270-4.200 [facility] Comment on above: Order Comment: Speci men Type: BLOOD SPECIMENOrdering Facility: [facility] Address: [address] [place] [address] Performed By: #### 3 016-3 ####[facility] [id number] GHADAEvangelina PORTILLODESFranca [address] CNPNon 11-12-2023 CNPN Telephone (FAMWS) TIA BLANCO ([id number]) 1955 F Date Time Provider Department 11/12/23 [facility] During your visit today, we recorded the following information about you: Lisa Aparicio RN 11/12/2023 12:45 PM Signed Patient calls and is concerned because her blood pressures continue to be elevated. Patent reports that on 10/30 blood pressure was 132/66. Patient reports that since the blood pressure has been more elevated. 02 AM 156/78 02/ AM 145/74 02/10 AM 132/71 02/11 AM 135/73 02/12 AM 150/81 02/13 AM 136/72 02/14 AM 163/77 PM 137/72 02/15 AM 169/89 Patient takes blood pressure 1 hour after taking losartan. Patient is concerned about her blood pressure. Patient has been previously on Coreg and Spirolactone. Patient concerned due to her stroke history and smoking history. Patient scheduled with Jacqueline Tomorrow morning to discuss blood pressure. OLVIN Whitfield Alyson, APRN.TECHNICAL COMMUNICATOR 11/13/2023 12:54 PM Signed This was addressed during appointment today. Closing encounter. Thank you, Jacqueline Candelario APRN.TECHNICAL COMMUNICATOR Allergies As of Date: 11/12/2023 Noted Allergy Reaction ASA (SALICYLATES) 01/05/2006 GLUTEN 10/17/2016 16 - Unknown METFORMIN 06/20/2010 Comments: nausea.. can take name brand PREDNISONE 10/02/2012 9 - Itching SULFA (SULFONAMIDE ANTIBIOTICS) 12/29/2005 Date Reviewed: 10/29/2023 Reviewed by: Jacqueline Candelario APRN.CNP - Fully Assessed Reason for Visit: Patient Update [1234] Prescriptions as of 11/13/2023 - losartan (COZAAR) 50 mg tablet Take 1 tablet by mouth once daily. - semaglutide (OZEMPIC) 1 mg/dose (4 mg/3 mL) pen Inject 1 mg subcutaneously one time a week. - flash glucose scanning reader (FREESTYLE TARA 2 READER) 1 Device as directed. Type 2 diabetes uncontrolled, no insulin - ARMOUR THYROID 120 mg tablet Take 1 tablet PO daily in AM - glimepiride (AMARYL) 2 mg tablet Take 1 tablet by mouth two times a day with meals. - semaglutide (OZEMPIC) 2 mg/dose (8 mg/3 mL) pen injector Inject 2 mg subcutaneously one time a week. - atorvastatin (LIPITOR) 80 mg tablet Take 1 tablet by mouth once daily. - clopidogrel (PLAVIX) 75 mg tablet Take 1 tablet by mouth once daily. - blood sugar diagnostic (FREESTYLE LITE STRIPS) test strip Test blood sugar(s) 8 times daily. Dx: E11.65. Insulin: No - elderberry fruit 350 mg cap Take 1 capsule by mouth once daily. - ondansetron orally disintegrating (ZOFRAN ODT) 4 mg disintegrating tablet Take 1 tablet by mouth every 8 hours as needed for nausea/vomiting. - ergocalciferol 50,000 unit capsule (VITAMIN D2, DRISDOL) Take 1 capsule by mouth two times a week. - Blood Pressure Monitor (BLOOD PRESSURE KIT) 1 Each as directed. Dx: essential hypertension - blood sugar diagnostic (BLOOD GLUCOSE TEST) test strip Test blood sugar(s) 2 times daily. Dx: Type 2 DM - Uncontrolled E11.65 Insulin: No - Lancets lancets Test blood sugar(s) 2 times daily. Dx: Type 2 DM - Uncontrolled E11.65 Insulin: No - Lancets (FREESTYLE LANCETS) lancets Test blood sugar(s) 2 times daily. Dx: 250.02. Insulin: No Problem List As Of Date 11/12/2023 Noted Resolved Diabetes mellitus type 2, controlled, without c*07/13/2006 12/08/2022 BENIGN HYPERTENSION [I10] 07/13/2006 ADJUSTMENT DISORDER WITH DEPRESSED MOOD [F43.21]07/13/2006 ANXIETY STATE NOS [F41.1] 07/13/2006 Hypothyroidism [E03.9] 07/13/2006 Abdominal pain, right upper quadrant [R10.11] 02/16/2007 12/08/2022 Tobacco Use Disorder [F17.200] 10/29/2009 Celiac disease [K90.0] 11/06/2009 Fatigue [R53.83] 09/07/2017 Medial epicondylitis, left [M77.02] 09/07/2017 Controlled type 2 diabetes mellitus without com*10/12/2018 12/08/2022 Situational anxiety [F41.8] 10/12/2018 Dyslipidemia [E78.5] 10/12/2018 Aortic stenosis, moderate [I35.0] 08/2019 Uncontrolled type 2 diabetes mellitus with hype*05/21/2020 Palpitations [R00.2] 02/19/2022 Uncontrolled hypertension [I10] 02/19/2022 Vitamin B12 deficiency [E53.8] 09/10/2022 Vitamin D deficiency [E55.9] 09/10/2022 History of tobacco abuse [Z87.891] 03/18/2023 Encounter Status:Closed by JACQUELINE CANDELARIO on 11/13/23 [facility] CNOVon 10-29-2023 CNOV Office Visit (FAMPWS) TIA BLANCO ([id number]) 1955 F Date Time Provider Department 10/29/23 9:20 AM JACQUELINE CANDELARIOPWS During your visit today, we recorded the following information about you: Pulse Respiration Blood pressure Weight 64/minute 14/minute 150/62 75.8 kg Jacqueline Candelario APRN.DEREK 10/29/2023 10:20 AM Signed Chief Complaint Patient presents with: b/p running high last few days HPI Tia Blanco is a 68 year old female who presents here today for Above Complaints. Tia is an established patient of Dr. Farrar, and myself. Per TE from yesterday: Pt states she has hx of high blood pressure. Last week she states she started to feel a little off so she found her blood pressure machine and started checking her pressure. States she did not write them down. Yesterday's readings were 152/80 pulse 71 in the morning and in the evening it was 181/87 in her left arm. She thought that was pretty high so she took it in her right arm and it was 173/72 pulse 77. She did have a headache at the time of these higher readings. Pt is extremely nervous about this because she states she had a mild stroke on Nov 02 last year. She is worried about that happening again. Pt remains on her Plavix and Lipitor. She is wondering if she needs to be on BP meds again. Denies any headache, visual disturbances or dizziness at this time. This morning her BP was 153/76 pulse 74. Pt has also had some dizzy spells off and on. Over the last few days, she said she has had maybe 2 dizzy spells. They last about 30 sec. Pt is also diabetic. She states her blood sugars have been fine. Denies taking her BP or BS at the time of the dizziness or right after. Encouraged to do that if it occurs again tonight. She states she thinks she notices the dizzy spells when she eats foods high is salt. Her worst episode of a dizzy spell was when she was on the toilet so she just sat there a little longer and she was fine. States she walks on the treadmill every morning and has not had any symptoms during that time. Appt scheduled with Jacqueline Candelario tomorrow morning at 0920. Pt to go to ER if BP is greater than 180 systolic or if diastolic greater than 100. Or if she has any symptoms such as severe headache, dizziness that lasts longer than current spells, any visual problems or any chest pain. Pt verbalizes understanding. In office today.... HTN --- Pt restates above complaints from TE. Hx of stroke in 2022 (1 year ago this week). Was on HTN regimen but was taken off of this during hospital admission due to hypotension episodes. Pt has been doing well with diet control and weight management for controlling BP until this past week. Pt does report some increase in stressors. Otherwise, her diet and exercise regimen have been the same. At home readings: 160-180/80-90s over the last few days. She denies chest pain, shortness of breath, palpitations, dizziness, leg edema, headaches, or vision changes currently. Last 14 Encounter BP Readings: Date: BP: 10/29/2023 150/62 09/14/2023 124/80 07/15/2023 126/74 06/26/2023 122/60 06/19/2023 118/68 04/30/2023 132/82 03/18/2023 130/80 12/10/2022 138/80 11/05/2022 110/62 09/10/2022 120/80 02/19/2022 160/80 01/31/2022 156/84 01/23/2022 182/96 10/23/2021 170/80 Past medical history, appointments, medications, allergies reviewed. Previous Medical History PAST MEDICAL HISTORY Diagnosis Date Aortic stenosis, moderate 08/2019 Benign hypertensive heart disease Celiac disease Diabetes mellitus without mention of complication Diabetes mellitus Fatty liver Grave's disease IBS (irritable bowel syndrome) Medical marijuana use has card Ulcerative colitis, unspecified Vitamin D deficiency Previous Surgical History PAST SURGICAL HISTORY Procedure Laterality Date COLONOSCOPY FLX DX W/COLLJ SPEC WHEN PFRMD 09/09/2013 Colonoscopy ESOPHAGOGASTRODUODEN OSCOPY TRANSORAL DIAGNOSTIC 09/09/2013 EGD INFUSE RADIOACTIVE MATERIALS Iodine ablation for Grave's disease LAP UMBILICAL HERNIA REPAIR 02/17/2000 Lap umbilical hernia with a 19cm mesh LAPAROSCOPY SURG CHOLECYSTECTOMY 03/01/2007 Lap Mary with visiport RUQ insertion LIG/TRNSXJ FLP TUBE ABDL/VAG APPR UNI/BI Tubal ligation Family History FAMILY HISTORY Problem Relation Age of Onset Cervical Cancer Sister Diabetes Father Psychiatry Mother Hypertension Father Heart Mother Heart Father Alzheimer's Disease Mother Breast Cancer Sister Patient Allergies ALLERGIES Allergen Reactions Asa [Salicylates] Gluten Unknown Metformin nausea.. can take name brand Prednisone Itching Sulfa (Sulfonamide * Current Medications Current Outpatient Medications on File Prior to Visit Medication Sig flash glucose scanning reader ([employer] TARA 2 READER) 1 Device as directed. Type 2 diabetes (more content not included)... [facility] TIA BLANCO ([id number]) 1955 F Date Time Provider Department 10/28/23 [facility] During your visit today, we recorded the following information about you: Yesi Kitchen, OLVIN 10/28/2023 12:07 PM Signed Pt states she has hx of high blood pressure. Last week she states she started to feel a little off so she found her blood pressure machine and started checking her pressure. States she did not write them down. Yesterday's readings were 152/80 pulse 71 in the morning and in the evening it was 181/87 in her left arm. She thought that was pretty high so she took it in her right arm and it was 173/72 pulse 77. She did have a headache at the time of these higher readings. Pt is extremely nervous about this because she states she had a mild stroke on Nov 02 last year. She is worried about that happening again. Pt remains on her Plavix and Lipitor. She is wondering if she needs to be on BP meds again. Denies any headache, visual disturbances or dizziness at this time. This morning her BP was 153/76 pulse 74. Pt has also had some dizzy spells off and on. Over the last few days, she said she has had maybe 2 dizzy spells. They last about 30 sec. Pt is also diabetic. She states her blood sugars have been fine. Denies taking her BP or BS at the time of the dizziness or right after. Encouraged to do that if it occurs again tonight. She states she thinks she notices the dizzy spells when she eats foods high is salt. Her worst episode of a dizzy spell was when she was on the toilet so she just sat there a little longer and she was fine. States she walks on the treadmill every morning and has not had any symptoms during that time. Appt scheduled with Jacqueline Candelario tomorrow morning at 0920. Pt to go to ER if BP is greater than 180 systolic or if diastolic greater than 100. Or if she has any symptoms such as severe headache, dizziness that lasts longer than current spells, any visual problems or any chest pain. Pt verbalizes understanding. Allergies As of Date: 10/28/2023 Noted Allergy Reaction ASA (SALICYLATES) 01/05/2006 GLUTEN 10/17/2016 16 - Unknown METFORMIN 06/20/2010 Comments: nausea.. can take name brand PREDNISONE 10/02/2012 9 - Itching SULFA (SULFONAMIDE ANTIBIOTICS) 12/29/2005 Date Reviewed: 09/14/2023 Reviewed by: Leah Rivero APRN.TECHNICAL COMMUNICATOR - Fully Assessed Reason for Visit: Patient Update [1234] Blood pressure issues [Other] Prescriptions as of 10/28/2023 - semaglutide (OZEMPIC) 1 mg/dose (4 mg/3 mL) pen Inject 1 mg subcutaneously one time a week. - flash glucose scanning reader ([employer] TARA 2 READER) 1 Device as directed. Type 2 diabetes uncontrolled, no insulin - ARMOUR THYROID 120 mg tablet Take 1 tablet PO daily in AM - glimepiride (AMARYL) 2 mg tablet Take 1 tablet by mouth two times a day with meals. - semaglutide (OZEMPIC) 2 mg/dose (8 mg/3 mL) pen injector Inject 2 mg subcutaneously one time a week. - atorvastatin (LIPITOR) 80 mg tablet Take 1 tablet by mouth once daily. - clopidogrel (PLAVIX) 75 mg tablet Take 1 tablet by mouth once daily. - blood sugar diagnostic (FREESTYLE LITE STRIPS) test strip Test blood sugar(s) 8 times daily. Dx: E11.65. Insulin: No - elderberry fruit 350 mg cap Take 1 capsule by mouth once daily. - ondansetron orally disintegrating (ZOFRAN ODT) 4 mg disintegrating tablet Take 1 tablet by mouth every 8 hours as needed for nausea/vomiting. - ergocalciferol 50,000 unit capsule (VITAMIN D2, DRISDOL) Take 1 capsule by mouth two times a week. - Blood Pressure Monitor (BLOOD PRESSURE KIT) 1 Each as directed. Dx: essential hypertension - blood sugar diagnostic (BLOOD GLUCOSE TEST) test strip Test blood sugar(s) 2 times daily. Dx: Type 2 DM - Uncontrolled E11.65 Insulin: No - Lancets lancets Test blood sugar(s) 2 times daily. Dx: Type 2 DM - Uncontrolled E11.65 Insulin: No - Lancets (FREESTYLE LANCETS) lancets Test blood sugar(s) 2 times daily. Dx: 250.02. Insulin: No Problem List As Of Date 10/28/2023 Noted Resolved Diabetes mellitus type 2, controlled, without c*07/13/2006 12/08/2022 BENIGN HYPERTENSION [I10] 07/13/2006 ADJUSTMENT DISORDER WITH DEPRESSED MOOD [F43.21]07/13/2006 ANXIETY STATE NOS [F41.1] 07/13/2006 Hypothyroidism [E03.9] 07/13/2006 Abdominal pain, right upper quadrant [R10.11] 02/16/2007 12/08/2022 Tobacco Use Disorder [F17.200] 10/29/2009 Celiac disease [K90.0] 11/06/2009 Fatigue [R53.83] 09/07/2017 Medial epicondylitis, left [M77.02] 09/07/2017 Controlled type 2 diabetes mellitus without com*10/12/2018 12/08/2022 Situational anxiety [F41.8] 10/12/2018 Dyslipidemia [E78.5] 10/12/2018 Aortic stenosis, moderate [I35.0] 08/2019 Uncontrolled type 2 diabetes mellitus with hype*05/21/2020 Palpitations [R00.2] 02/19/2022 Uncontrolled hypertension [I10] 02/19/2022 Vitamin (more content not included)... Normal [facility]IA BLANCO ([id number]) 1955 F Date Time Provider Department 10/14/23 PREET FARRAR During your visit today, we recorded the following information about you: Gretchen Dorantes LPN 10/14/2023 4:01 PM Signed Call from Nico Belle who is pt's agent, he is an disability insurance hearing officer. He is trying to help pt get Oblong thyroid covered by her insurance. Nico is asking if a PA has been done. There is a PA approval in scanned docs dated 03/30/23 for medication through 03/26/24. Med was approved through medicaid. Denied through medicare. Nico was notified of approval AND approval letter faxed to him at [phone]. ALEXIA Manzanares Alyson, APRN.DEREK 10/14/2023 6:05 PM Signed Is there anything that needs done on our end? Jacqueline Candelario APRN.Gini Magdaleno LPN 10/14/2023 6:26 PM Signed Think this was just . Allergies As of Date: 10/14/2023 Noted Allergy Reaction ASA (SALICYLATES) 01/05/2006 GLUTEN 10/17/2016 16 - Unknown METFORMIN 06/20/2010 Comments: nausea.. can take name brand PREDNISONE 10/02/2012 9 - Itching SULFA (SULFONAMIDE ANTIBIOTICS) 12/29/2005 Date Reviewed: 09/14/2023 Reviewed by: Leah Rivero APRN.TECHNICAL COMMUNICATOR - Fully Assessed Prescriptions as of 10/28/2023 - semaglutide (OZEMPIC) 1 mg/dose (4 mg/3 mL) pen Inject 1 mg subcutaneously one time a week. - flash glucose scanning reader (FREE[employer] TARA 2 READER) 1 Device as directed. Type 2 diabetes uncontrolled, no insulin - ARMOUR THYROID 120 mg tablet Take 1 tablet PO daily in AM - glimepiride (AMARYL) 2 mg tablet Take 1 tablet by mouth two times a day with meals. - semaglutide (OZEMPIC) 2 mg/dose (8 mg/3 mL) pen injector Inject 2 mg subcutaneously one time a week. - atorvastatin (LIPITOR) 80 mg tablet Take 1 tablet by mouth once daily. - clopidogrel (PLAVIX) 75 mg tablet Take 1 tablet by mouth once daily. - blood sugar diagnostic (FREESTYLE LITE STRIPS) test strip Test blood sugar(s) 8 times daily. Dx: E11.65. Insulin: No - elderberry fruit 350 mg cap Take 1 capsule by mouth once daily. - ondansetron orally disintegrating (ZOFRAN ODT) 4 mg disintegrating tablet Take 1 tablet by mouth every 8 hours as needed for nausea/vomiting. - ergocalciferol 50,000 unit capsule (VITAMIN D2, DRISDOL) Take 1 capsule by mouth two times a week. - Blood Pressure Monitor (BLOOD PRESSURE KIT) 1 Each as directed. Dx: essential hypertension - blood sugar diagnostic (BLOOD GLUCOSE TEST) test strip Test blood sugar(s) 2 times daily. Dx: Type 2 DM - Uncontrolled E11.65 Insulin: No - Lancets lancets Test blood sugar(s) 2 times daily. Dx: Type 2 DM - Uncontrolled E11.65 Insulin: No - Lancets (FREESTYLE LANCETS) lancets Test blood sugar(s) 2 times daily. Dx: 250.02. Insulin: No Problem List As Of Date 10/14/2023 Noted Resolved Diabetes mellitus type 2, controlled, without c*07/13/2006 12/08/2022 BENIGN HYPERTENSION [I10] 07/13/2006 ADJUSTMENT DISORDER WITH DEPRESSED MOOD [F43.21]07/13/2006 ANXIETY STATE NOS [F41.1] 07/13/2006 Hypothyroidism [E03.9] 07/13/2006 Abdominal pain, right upper quadrant [R10.11] 02/16/2007 12/08/2022 Tobacco Use Disorder [F17.200] 10/29/2009 Celiac disease [K90.0] 11/06/2009 Fatigue [R53.83] 09/07/2017 Medial epicondylitis, left [M77.02] 09/07/2017 Controlled type 2 diabetes mellitus without com*10/12/2018 12/08/2022 Situational anxiety [F41.8] 10/12/2018 Dyslipidemia [E78.5] 10/12/2018 Aortic stenosis, moderate [I35.0] 08/2019 Uncontrolled type 2 diabetes mellitus with hype*05/21/2020 Palpitations [R00.2] 02/19/2022 Uncontrolled hypertension [I10] 02/19/2022 Vitamin B12 deficiency [E53.8] 09/10/2022 Vitamin D deficiency [E55.9] 09/10/2022 History of tobacco abuse [Z87.891] 03/18/2023 Encounter Status:Closed by GRETCHEN DORANTES on 10/28/23 [facility]PMarii 10-02-2023 [facility] (FAMPWS) TIA BLANCO ([id number]) 1955 F Date Time Provider Department 10/02/23 PREET FARRAR [facility] During your visit today, we recorded the following information about you: Blayne Osborne RN 10/02/2023 5:00 PM Signed [facility] calls to let provider know the alternatives for Oblong Thyroid since it is denied for coverage: Euthyrox Levoxyl Liothyronine sodium Cytomel Levo-t OLVIN Livingston Jordan L, DO 10/09/2023 4:53 PM Signed Please inform patient that we can try Levothyroxine as an alternative for her armour thyroid if she is willing, this is no longer covered by her insurance. When changing over thyroid formulations, labs need to be rechecked in 6-8 weeks for thyroid. Is she willing to do this? DO Prabhjot Urban Susan LPN 10/09/2023 4:59 PM Signed Pt. states She will stay on Oblong Thyroid and levoxyl doesn't work for her. Preet Farrar DO 10/09/2023 5:29 PM Signed Noted DO Jose E Urban Lori, LPN 10/14/2023 4:01 PM Signed Oblong Thyroid was approved through medicaid. See phone note dated 10/14/23. Gretchen Dorantes LPN Allergies As of Date: 10/02/2023 Noted Allergy Reaction ASA (SALICYLATES) 01/05/2006 GLUTEN 10/17/2016 16 - Unknown METFORMIN 06/20/2010 Comments: nausea.. can take name brand PREDNISONE 10/02/2012 9 - Itching SULFA (SULFONAMIDE ANTIBIOTICS) 12/29/2005 Date Reviewed: 09/14/2023 Reviewed by: Leah Rivero APRN.TECHNICAL COMMUNICATOR - Fully Assessed Reason for Visit: Medication Problem [65] Prescriptions as of 10/14/2023 - semaglutide (OZEMPIC) 1 mg/dose (4 mg/3 mL) pen Inject 1 mg subcutaneously one time a week. - flash glucose scanning reader ([employer] TARA 2 READER) 1 Device as directed. Type 2 diabetes uncontrolled, no insulin - ARMOUR THYROID 120 mg tablet Take 1 tablet PO daily in AM - glimepiride (AMARYL) 2 mg tablet Take 1 tablet by mouth two times a day with meals. - semaglutide (OZEMPIC) 2 mg/dose (8 mg/3 mL) pen injector Inject 2 mg subcutaneously one time a week. - atorvastatin (LIPITOR) 80 mg tablet Take 1 tablet by mouth once daily. - clopidogrel (PLAVIX) 75 mg tablet Take 1 tablet by mouth once daily. - blood sugar diagnostic (FREESTYLE LITE STRIPS) test strip Test blood sugar(s) 8 times daily. Dx: E11.65. Insulin: No - elderberry fruit 350 mg cap Take 1 capsule by mouth once daily. - ondansetron orally disintegrating (ZOFRAN ODT) 4 mg disintegrating tablet Take 1 tablet by mouth every 8 hours as needed for nausea/vomiting. - ergocalciferol 50,000 unit capsule (VITAMIN D2, DRISDOL) Take 1 capsule by mouth two times a week. - Blood Pressure Monitor (BLOOD PRESSURE KIT) 1 Each as directed. Dx: essential hypertension - blood sugar diagnostic (BLOOD GLUCOSE TEST) test strip Test blood sugar(s) 2 times daily. Dx: Type 2 DM - Uncontrolled E11.65 Insulin: No - Lancets lancets Test blood sugar(s) 2 times daily. Dx: Type 2 DM - Uncontrolled E11.65 Insulin: No - Lancets (FREESTYLE LANCETS) lancets Test blood sugar(s) 2 times daily. Dx: 250.02. Insulin: No Problem List As Of Date 10/02/2023 Noted Resolved Diabetes mellitus type 2, controlled, without c*07/13/2006 12/08/2022 BENIGN HYPERTENSION [I10] 07/13/2006 ADJUSTMENT DISORDER WITH DEPRESSED MOOD [F43.21]07/13/2006 ANXIETY STATE NOS [F41.1] 07/13/2006 Hypothyroidism [E03.9] 07/13/2006 Abdominal pain, right upper quadrant [R10.11] 02/16/2007 12/08/2022 Tobacco Use Disorder [F17.200] 10/29/2009 Celiac disease [K90.0] 11/06/2009 Fatigue [R53.83] 09/07/2017 Medial epicondylitis, left [M77.02] 09/07/2017 Controlled type 2 diabetes mellitus without com*10/12/2018 12/08/2022 Situational anxiety [F41.8] 10/12/2018 Dyslipidemia [E78.5] 10/12/2018 Aortic stenosis, moderate [I35.0] 08/2019 Uncontrolled type 2 diabetes mellitus with hype*05/21/2020 Palpitations [R00.2] 02/19/2022 Uncontrolled hypertension [I10] 02/19/2022 Vitamin B12 deficiency [E53.8] 09/10/2022 Vitamin D deficiency [E55.9] 09/10/2022 History of tobacco abuse [Z87.891] 03/18/2023 Encounter Status:Closed by BLAYNE OSBORNE on 10/13/23 [facility] 09-16-2023 [facility] (FAMPWS[facility] TIA BLANCO ([id number]) 1955 F Date Time Provider Department 09/16/23 FARRAR, PREET L FAMPWS During your visit today, we recorded the following information about you: Artemio Robert Bianchi LPN 09/16/2023 9:30 AM Signed Pt calling to see what you want to do with her thyroid. Pt was seen in the office on 09-14-23 and has not heard anything back. Please advise pt. Okay to leave a detailed message if needed. Robert ALEXIA Jacob Beth, LPN 09/17/2023 4:53 PM Signed Patient calling to check status of note. Patient upset that the FOREIGN LANGUAGE INSTRUCTOR did not call her and explain that she was sending the message to Dr Farrar to review and advise. Patient said she knows something is not right either with her T3 or T4 is out of wack. Aware that PCP is out of the office until 09/22. Patient said I want my PCP to address this message then. Please advise Component Latest Ref Rng AND Units 09/08/2023 TSH 0.270 - 4.200 mIU/L 0.119 (L) T3 79 - 165 ng/dL 182 (H) Free T4 0.9 - 1.7 ng/dL 0.9 Susana Jiménez 09/18/2023 12:56 PM Signed Contacted patient, she stated she does not want to have a colonoscopy that she is not have any issues and sees no need for it. order cancelled. She is wanting to hear back about her Thyroid issues and would really like to hear from Dr. Farrar. Gretchen Vincent LPN 09/23/2023 10:56 AM Signed Pt called in AND is very upset that she has not heard back from pcp. States she has asked 3x for a phone call back AND has gotten nothing. Pt reports she does not feel well, is very tired AND wants to know what to do about her thyroid? Please notify pt of instructions. ALEXIA Manzanares Jordan L, 09/23/2023 3:19 PM Signed The free t3 levels are high and TSH is low but free t4 is normal. It is more difficult to adjust her thyroid medication since she is on armor thyroid and not synthroid/levothyrox ine. Recommend cutting down dose of armor thyroid to only take rx 6 days a week and not the 7th day DO Jennifer UrbanMadieSofia 09/23/2023 5:58 PM Signed Pt informed, verbalized understanding. Sofia Harrison MA Allergies As of Date: 09/16/2023 Noted Allergy Reaction ASA (SALICYLATES) 01/05/2006 GLUTEN 10/17/2016 16 - Unknown METFORMIN 06/20/2010 Comments: nausea.. can take name brand PREDNISONE 10/02/2012 9 - Itching SULFA (SULFONAMIDE ANTIBIOTICS) 12/29/2005 Date Reviewed: 09/14/2023 Reviewed by: Leah Rivero APRN.TECHNICAL COMMUNICATOR - Fully Assessed Reason for Visit: medication issue [Other] Prescriptions as of 09/23/2023 - semaglutide (OZEMPIC) 1 mg/dose (4 mg/3 mL) pen Inject 1 mg subcutaneously one time a week. - flash glucose scanning reader (FREESTYLE TARA 2 READER) 1 Device as directed. Type 2 diabetes uncontrolled, no insulin - ARMOUR THYROID 120 mg tablet Take 1 tablet PO daily in AM - glimepiride (AMARYL) 2 mg tablet Take 1 tablet by mouth two times a day with meals. - semaglutide (OZEMPIC) 2 mg/dose (8 mg/3 mL) pen injector Inject 2 mg subcutaneously one time a week. - atorvastatin (LIPITOR) 80 mg tablet Take 1 tablet by mouth once daily. - clopidogrel (PLAVIX) 75 mg tablet Take 1 tablet by mouth once daily. - blood sugar diagnostic (FREESTYLE LITE STRIPS) test strip Test blood sugar(s) 8 times daily. Dx: E11.65. Insulin: No - elderberry fruit 350 mg cap Take 1 capsule by mouth once daily. - ondansetron orally disintegrating (ZOFRAN ODT) 4 mg disintegrating tablet Take 1 tablet by mouth every 8 hours as needed for nausea/vomiting. - ergocalciferol 50,000 unit capsule (VITAMIN D2, DRISDOL) Take 1 capsule by mouth two times a week. - Blood Pressure Monitor (BLOOD PRESSURE KIT) 1 Each as directed. Dx: essential hypertension - blood sugar diagnostic (BLOOD GLUCOSE TEST) test strip Test blood sugar(s) 2 times daily. Dx: Type 2 DM - Uncontrolled E11.65 Insulin: No - Lancets lancets Test blood sugar(s) 2 times daily. Dx: Type 2 DM - Uncontrolled E11.65 Insulin: No - Lancets (FREESTYLE LANCETS) lancets Test blood sugar(s) 2 times daily. Dx: 250.02. Insulin: No Problem List As Of Date 09/16/2023 Noted Resolved Diabetes mellitus type 2, controlled, without c*07/13/2006 12/08/2022 BENIGN HYPERTENSION [I10] 07/13/2006 ADJUSTMENT DISORDER WITH DEPRESSED MOOD [F43.21]07/13/2006 ANXIETY STATE NOS [F41.1] 07/13/2006 Hypothyroidism [E03.9] 07/13/2006 Abdominal pain, right upper quadrant [R10.11] 02/16/2007 12/08/2022 Tobacco Use Disorder [F17.200] 10/29/2009 Celiac disease [K90.0] 11/06/2009 Fatigue [R53.83] 09/07/2017 Medial epicondylitis, left [M77.02] 09/07/2017 Controlled type 2 diabetes mellitus without com*10/12/2018 12/08/2022 Situational anxiety [F41.8] 10/12/2018 Dyslipidemia [E78.5] 10/12/2018 Aortic stenosis, moderate [I35.0] 08/2019 Uncontrolled type 2 diabetes mellitus with h (more content not included)... Normal [facility] CNOVon 09-14-2023 CNOV Office Visit (EMILYPWS) TIA BLANCO ([id number]) 1955 F Date Time Provider Department 09/14/23 10:00 AM LEAH RIVERO During your visit today, we recorded the following information about you: Pulse Respiration Blood pressure Weight 81/minute 16/minute 124/80 76.8 kg Leah Rivero APRN.CNP 09/14/2023 12:34 PM Signed Chief Complaint Patient presents with: F/U 3 Month HPI Tia Blanco is a 68 year old female who presents here today for Above Complaints. Today: Home blood sugars-checking 4x daily. Did recently get a new blood glucose machine. Forgot to bring blood sugar results along. But have been in the 100's every time she has checked it. Thyroid is off the chart. Doesn't feel good at all. Is putting on weight rather than losing. Need to do something about the thyroid now. Is adding more chicken and some carbs to her diet. Feels the carbs should help her increase her insulin to help her burn more weight. Is now eating 3 small potatoes and gluten free chicken strips. Requesting to have her Oblong thyroid medication adjusted. Quit taking her vitamin B12 level because it was extremely high. Up to 30 minutes on her treadmill 7 days per week. Feels very god with this. Uses medical marijuana-gets this in [place], [place] because too expensive in [place]. Past medical history, appointments, medications, allergies reviewed. Previous Medical History PAST MEDICAL HISTORY Diagnosis Date Aortic stenosis, moderate 08/2019 Benign hypertensive heart disease Celiac disease Diabetes mellitus without mention of complication Diabetes mellitus Fatty liver Grave's disease IBS (irritable bowel syndrome) Medical marijuana use has card Ulcerative colitis, unspecified Vitamin D deficiency Previous Surgical History PAST SURGICAL HISTORY Procedure Laterality Date COLONOSCOPY FLX DX W/COLLJ SPEC WHEN PFRMD 09/09/2013 Colonoscopy ESOPHAGOGASTRODUODEN OSCOPY TRANSORAL DIAGNOSTIC 09/09/2013 EGD INFUSE RADIOACTIVE MATERIALS Iodine ablation for Grave's disease LAP UMBILICAL HERNIA REPAIR 02/17/2000 Lap umbilical hernia with a 19cm mesh LAPAROSCOPY SURG CHOLECYSTECTOMY 03/01/2007 Lap Mary with visiport RUQ insertion LIG/TRNSXJ FLP TUBE ABDL/VAG APPR UNI/BI Tubal ligation Family History FAMILY HISTORY Problem Relation Age of Onset Cervical Cancer Sister Diabetes Father Psychiatry Mother Hypertension Father Heart Mother Heart Father Alzheimer's Disease Mother Breast Cancer Sister Patient Allergies ALLERGIES Allergen Reactions Asa [Salicylates] Gluten Unknown Metformin nausea.. can take name brand Prednisone Itching Sulfa (Sulfonamide * Current Medications Current Outpatient Medications on File Prior to Visit Medication Sig semaglutide (OZEMPIC) 1 mg/dose (4 mg/3 mL) pen Inject 1 mg subcutaneously one time a week. flash glucose scanning reader ([employer] TARA 2 READER) 1 Device as directed. Type 2 diabetes uncontrolled, no insulin ARMOUR THYROID 120 mg tablet Take 1 tablet PO daily in AM glimepiride (AMARYL) 2 mg tablet Take 1 tablet by mouth two times a day with meals. semaglutide (OZEMPIC) 2 mg/dose (8 mg/3 mL) pen injector Inject 2 mg subcutaneously one time a week. atorvastatin (LIPITOR) 80 mg tablet Take 1 tablet by mouth once daily. clopidogrel (PLAVIX) 75 mg tablet Take 1 tablet by mouth once daily. blood sugar diagnostic (FREESTYLE LITE STRIPS) test strip Test blood sugar(s) 8 times daily. Dx: E11.65. Insulin: No elderberry fruit 350 mg cap Take 1 capsule by mouth once daily. ondansetron orally disintegrating (ZOFRAN ODT) 4 mg disintegrating tablet Take 1 tablet by mouth every 8 hours as needed for nausea/vomiting. ergocalciferol 50,000 unit capsule (VITAMIN D2, DRISDOL) Take 1 capsule by mouth two times a week. Blood Pressure Monitor (BLOOD PRESSURE KIT) 1 Each as directed. Dx: essential hypertension blood sugar diagnostic (BLOOD GLUCOSE TEST) test strip Test blood sugar(s) 2 times daily. Dx: Type 2 DM - Uncontrolled E11.65 Insulin: No Lancets lancets Test blood sugar(s) 2 times daily. Dx: Type 2 DM - Uncontrolled E11.65 Insulin: No Lancets (FREESTYLE LANCETS) lancets Test blood sugar(s) 2 times daily. Dx: 250.02. Insulin: No Cyanocobalamin 1,000 mcg TbER 2 tablets daily (Patient not taking: Reported on 09/14/2023) No current facility-administere d medications on file prior to visit. Social History Social History Tobacco Use Smoking status: Former Packs/day: .5 Types: Cigarettes Quit date: 11/02/2022 Years since quittin.8 Smokeless tobacco: Never Tobacco comments: 20+ years smoking Substance Use Topics Alcohol use: Yes Drug use: No Review of Symptoms REVIEW OF SYSTEMS See HPI, otherwise negative EXAM: BP 124/80 (BP Site: Left Arm, BP Position: Sitting, BP Cuff Size: Regular Adult) Puls (more content not included)... Normal [facility] HbA1c (Bld)on 09-08-2023 Average glucose Estimated from glycated hemoglobin (Bld) [Mass/Vol] 137 mg/dL Normal [facility] Comment on above: Order Comment: Speci men Type: BLOOD SPECIMENOrdering Facility: [facility] Address: [address] [place] [address] Result Comment: eAG: (Estimated average glucose) is a calculated value from HgbA1c and is hardware supplies sales representative of the average blood glucose level in the last 2-3 month period. Performed By: #### 5 5454-3 ####[facility] LABIA [id number] [place] [address] [place] HbA1c (Bld) [Mass fraction] 6.4 % High 4.3-5.6 [facility] Comment on above: Order Comment: Speci men Type: BLOOD SPECIMENOrdering Facility: [facility] Address: [address] [place] [address] Result Comment: Marleen ican Diabetes Association guidelines indicate that patients with HgbA1c in the range 5.7-6.4% are at increased risk for development of diabetes, and intervention by lifestyle modification may be beneficial. HgbA1c greater or equal to 6.5% is considered diagnostic of diabetes. Performed By: #### 5 5454-3 ####[facility]IA [id number] [place] [address] [place] T3 SerPl-mCncon 09-08-2023 T3 [Mass/Vol] 182 ng/dL High 79-165 [facility] Comment on above: Order Comment: Speci men Type: BLOOD SPECIMENOrdering Facility: [facility] Address: [address] [place] [address] Performed By: #### 3 016-3, 2132-9, 3024-7, 3053-6 ####[facility] LABIA [id number] [place] [address] [place] T4 Free SerPl-mCncon 2 023 Free T4 [Mass/Vol] 0.9 ng/dL Normal 0.9-1.7 [facility] Comment on above: Order Comment: Speci men Type: BLOOD SPECIMENOrdering Facility: [facility] Address: [address] [place] [id number] Performed By: #### 3 016-3, 9, 7, 3052-6 ####[facility] LABCLIA [id number] [place] [address] [place] TSH SerPl-aCncon 09-08-2023 TSH Qn 0.119 m[IU]/L Low 0.270-4.200 [facility] Comment on above: Order Comment: Speci men Type: BLOOD SPECIMENOrdering Facility: [facility] Address: [address] [place] [address] Performed By: #### 3 016-3, 9, 3024-03, 3052-6 ####[facility] LABIA [id number] [address] [place] Vit B12 SerPl-mCncon 023 Cobalamin (Vitamin B12) [Mass/Vol] 1913 pg/mL High 232-1245 [facility] Comment on above: Order Comment: Speci men Type: BLOOD SPECIMENOrdering Facility: [facility] Address: [address] [place] [address] Performed By: #### 3 016-3, 9, 7, 6 ####[facility] LABIA [id number] [address] OF [place] [facility]20[facility] TIA BLANCO ([id number]) 1955 F Date Time Provider Department 08/04/23 PREET FARRAR FAMWS During your visit today, we recorded the following information about you: Robert Ulloa LPN 08/04/2023 8:51 AM Signed Pt is thinking about getting a tooth extracted. Pt is on Plavix and needs to know how long she would need to hold the medication. Please advise pt. Preet Rivero LPN, DO 08/10/2023 9:46 AM Signed Recommend holding any blood thinners including aspirin and plavix for 5-7 days before procedure. This also needs to be clarified if okay time length by the dentist/oral surgeon as well DO Michelle Urban Linda M, LPN 08/10/2023 11:34 AM Signed Poke with pt gave information provioded. Pt voices understanding. Allergies As of Date: 08/04/2023 Noted Allergy Reaction ASA (SALICYLATES) 01/05/2006 GLUTEN 10/17/2016 16 - Unknown METFORMIN 06/20/2010 Comments: nausea.. can take name brand PREDNISONE 10/02/2012 9 - Itching SULFA (SULFONAMIDE ANTIBIOTICS) 12/29/2005 Date Reviewed: 07/15/2023 Reviewed by: Leah Rivero APRN.TECHNICAL COMMUNICATOR - Fully Assessed Reason for Visit: Medication Question [1478] Prescriptions as of 08/10/2023 - semaglutide (OZEMPIC) 1 mg/dose (4 mg/3 mL) pen Inject 1 mg subcutaneously one time a week. - flash glucose scanning reader (FREESTYLE TARA 2 READER) 1 Device as directed. Type 2 diabetes uncontrolled, no insulin - ARMOUR THYROID 120 mg tablet Take 1 tablet PO daily in AM - glimepiride (AMARYL) 2 mg tablet Take 1 tablet by mouth two times a day with meals. - semaglutide (OZEMPIC) 2 mg/dose (8 mg/3 mL) pen injector Inject 2 mg subcutaneously one time a week. - atorvastatin (LIPITOR) 80 mg tablet Take 1 tablet by mouth once daily. - clopidogrel (PLAVIX) 75 mg tablet Take 1 tablet by mouth once daily. - Cyanocobalamin 1,000 mcg TbER 2 tablets daily - blood sugar diagnostic (FREESTYLE LITE STRIPS) test strip Test blood sugar(s) 8 times daily. Dx: E11.65. Insulin: No - elderberry fruit 350 mg cap Take 1 capsule by mouth once daily. - ondansetron orally disintegrating (ZOFRAN ODT) 4 mg disintegrating tablet Take 1 tablet by mouth every 8 hours as needed for nausea/vomiting. - ergocalciferol 50,000 unit capsule (VITAMIN D2, DRISDOL) Take 1 capsule by mouth two times a week. - Blood Pressure Monitor (BLOOD PRESSURE KIT) 1 Each as directed. Dx: essential hypertension - blood sugar diagnostic (BLOOD GLUCOSE TEST) test strip Test blood sugar(s) 2 times daily. Dx: Type 2 DM - Uncontrolled E11.65 Insulin: No - Lancets lancets Test blood sugar(s) 2 times daily. Dx: Type 2 DM - Uncontrolled E11.65 Insulin: No - Lancets (FREESTYLE LANCETS) lancets Test blood sugar(s) 2 times daily. Dx: 250.02. Insulin: No Problem List As Of Date 08/04/2023 Noted Resolved Diabetes mellitus type 2, controlled, without c*07/13/2006 12/08/2022 BENIGN HYPERTENSION [I10] 07/13/2006 ADJUSTMENT DISORDER WITH DEPRESSED MOOD [F43.21]07/13/2006 ANXIETY STATE NOS [F41.1] 07/13/2006 Hypothyroidism [E03.9] 07/13/2006 Abdominal pain, right upper quadrant [R10.11] 02/16/2007 12/08/2022 Tobacco Use Disorder [F17.200] 10/29/2009 Celiac disease [K90.0] 11/06/2009 Fatigue [R53.83] 09/07/2017 Medial epicondylitis, left [M77.02] 09/07/2017 Controlled type 2 diabetes mellitus without com*10/12/2018 12/08/2022 Situational anxiety [F41.8] 10/12/2018 Dyslipidemia [E78.5] 10/12/2018 Aortic stenosis, moderate [I35.0] 08/2019 Uncontrolled type 2 diabetes mellitus with hype*05/21/2020 Palpitations [R00.2] 02/19/2022 Uncontrolled hypertension [I10] 02/19/2022 Vitamin B12 deficiency [E53.8] 09/10/2022 Vitamin D deficiency [E55.9] 09/10/2022 History of tobacco abuse [Z87.891] 03/18/2023 Encounter Status:Closed by GINI FUENTES on 08/10/23 Normal [facility] DEREKNon 07-31-2023 CNPN Telephone (FAMPWS) TIA BLANCO ([id number]) 1955 F Date Time Provider Department 07/31/23 [facility] During your visit today, we recorded the following information about you: Preet Farrar DO 07/31/2023 7:50 AM Signed Please inform patient that her potassium is normal DO Zenon Urban Stephanie, RN 07/31/2023 12:10 PM Signed Patient notified of results. Patient verbalizes understanding. Lisa Aparicio RN Allergies As of Date: 07/31/2023 Noted Allergy Reaction ASA (SALICYLATES) 01/05/2006 GLUTEN 10/17/2016 16 - Unknown METFORMIN 06/20/2010 Comments: nausea.. can take name brand PREDNISONE 10/02/2012 9 - Itching SULFA (SULFONAMIDE ANTIBIOTICS) 12/29/2005 Date Reviewed: 07/15/2023 Reviewed by: Leah Rivero APRN.TECHNICAL COMMUNICATOR - Fully Assessed Reason for Visit: Results [95] Prescriptions as of 07/31/2023 - semaglutide (OZEMPIC) 1 mg/dose (4 mg/3 mL) pen Inject 1 mg subcutaneously one time a week. - flash glucose scanning reader (FREESTYLE TARA 2 READER) 1 Device as directed. Type 2 diabetes uncontrolled, no insulin - ARMOUR THYROID 120 mg tablet Take 1 tablet PO daily in AM - glimepiride (AMARYL) 2 mg tablet Take 1 tablet by mouth two times a day with meals. - semaglutide (OZEMPIC) 2 mg/dose (8 mg/3 mL) pen injector Inject 2 mg subcutaneously one time a week. - atorvastatin (LIPITOR) 80 mg tablet Take 1 tablet by mouth once daily. - clopidogrel (PLAVIX) 75 mg tablet Take 1 tablet by mouth once daily. - Cyanocobalamin 1,000 mcg TbER 2 tablets daily - blood sugar diagnostic (FREESTYLE LITE STRIPS) test strip Test blood sugar(s) 8 times daily. Dx: E11.65. Insulin: No - elderberry fruit 350 mg cap Take 1 capsule by mouth once daily. - ondansetron orally disintegrating (ZOFRAN ODT) 4 mg disintegrating tablet Take 1 tablet by mouth every 8 hours as needed for nausea/vomiting. - ergocalciferol 50,000 unit capsule (VITAMIN D2, DRISDOL) Take 1 capsule by mouth two times a week. - Blood Pressure Monitor (BLOOD PRESSURE KIT) 1 Each as directed. Dx: essential hypertension - blood sugar diagnostic (BLOOD GLUCOSE TEST) test strip Test blood sugar(s) 2 times daily. Dx: Type 2 DM - Uncontrolled Insulin: No - Lancets lancets Test blood sugar(s) 2 times daily. Dx: Type 2 DM - Uncontrolled Insulin: No - Lancets (FREESTYLE LANCETS) lancets Test blood sugar(s) 2 times daily. Dx: 250.02. Insulin: No Problem List As Of Date 07/31/2023 Noted Resolved Diabetes mellitus type 2, controlled, without c*07/13/2006 12/08/2022 BENIGN HYPERTENSION [I10] 07/13/2006 ADJUSTMENT DISORDER WITH DEPRESSED MOOD [F43.21]07/13/2006 ANXIETY STATE NOS [F41.1] 07/13/2006 Hypothyroidism [E03.9] 07/13/2006 Abdominal pain, right upper quadrant [R10.11] 02/16/2007 12/08/2022 Tobacco Use Disorder [F17.200] 10/29/2009 Celiac disease [K90.0] 11/06/2009 Fatigue [R53.83] 09/07/2017 Medial epicondylitis, left [M77.02] 09/07/2017 Controlled type 2 diabetes mellitus without com*10/12/2018 12/08/2022 Situational anxiety [F41.8] 10/12/2018 Dyslipidemia [E78.5] 10/12/2018 Aortic stenosis, moderate [I35.0] 08/2019 Uncontrolled type 2 diabetes mellitus with hype*05/21/2020 Palpitations [R00.2] 02/19/2022 Uncontrolled hypertension [I10] 02/19/2022 Vitamin B12 deficiency [E53.8] 09/10/2022 Vitamin D deficiency [E55.9] 09/10/2022 History of tobacco abuse [Z87.891] 03/18/2023 Encounter Status:Closed by LISA APARICIO on 07/31/23 Normal [facility] POTASSIUM BLDon 07-30-2023 Potassium [Moles/Vol] 3.9 mmol/L Normal 3.7-5.1 [facility] Comment on above: Order Comment: Speci men Type: BLOOD SPECIMENOrdering Facility: [facility] Address: [address] [place] [address] Performed By: #### K 1 ####[facility] LABCLIA [id number] [facility] [id number] [place] [address] [place] OF [facility] CNPNon 07-29-2023 CNPN [facility] TIA BLANCO ([id number]) 1955 F Date Time Provider Department 07/29/23 PREET FARRAR [facility] During your visit today, we recorded the following information about you: Emily Osei RN 07/29/2023 12:38 PM Signed Patient calling to say she needs prior authorization for brand name Oblong Thyroid. She says she cannot take generic form. PRIOR AUTHORIZATION Medication for Prior Authorization: Oblong Thyroid (Patient says she cannot use generic) Other formulary meds available : NO Insurance Company: [facility] [employer] phone number: Patient insurance ID number: [id number] OLVIN Buchanan Ma, Elizabeth 07/29/2023 1:09 PM Signed Spoke to drugCYP Designt and advised PA on file and approved till 02/2024 with medicaid. Pharmacy had to run drug and call tech team due to issue with kicking back to medicare. Drughany returned to line and got rx to go through at copay $0. Called patient and went over information with her and reminded her PA is approved till 02/2024. Patient said she was in jun to see Wendie ezekiel loera PA was done so very upset. Advised PA doesn't need done due to approval till 02/2024 Donna Novak Ma Allergies As of Date: 07/29/2023 Noted Allergy Reaction ASA (SALICYLATES) 01/05/2006 GLUTEN 10/17/2016 16 - Unknown METFORMIN 06/20/2010 Comments: nausea.. can take name brand PREDNISONE 10/02/2012 9 - Itching SULFA (SULFONAMIDE ANTIBIOTICS) 12/29/2005 Date Reviewed: 07/15/2023 Reviewed by: Leah Rivero APRN.TECHNICAL COMMUNICATOR - Fully Assessed Reason for Visit: Insurance Authorization [[id number]] Prescriptions as of 07/29/2023 - semaglutide (OZEMPIC) 1 mg/dose (4 mg/3 mL) pen Inject 1 mg subcutaneously one time a week. - flash glucose scanning reader (FREESTYLE TARA 2 READER) 1 Device as directed. Type 2 diabetes uncontrolled, no insulin - ARMOUR THYROID 120 mg tablet Take 1 tablet PO daily in AM - glimepiride (AMARYL) 2 mg tablet Take 1 tablet by mouth two times a day with meals. - semaglutide (OZEMPIC) 2 mg/dose (8 mg/3 mL) pen injector Inject 2 mg subcutaneously one time a week. - atorvastatin (LIPITOR) 80 mg tablet Take 1 tablet by mouth once daily. - clopidogrel (PLAVIX) 75 mg tablet Take 1 tablet by mouth once daily. - Cyanocobalamin 1,000 mcg TbER 2 tablets daily - blood sugar diagnostic (FREESTYLE LITE STRIPS) test strip Test blood sugar(s) 8 times daily. Dx: E11.65. Insulin: No - elderberry fruit 350 mg cap Take 1 capsule by mouth once daily. - ondansetron orally disintegrating (ZOFRAN ODT) 4 mg disintegrating tablet Take 1 tablet by mouth every 8 hours as needed for nausea/vomiting. - ergocalciferol 50,000 unit capsule (VITAMIN D2, DRISDOL) Take 1 capsule by mouth two times a week. - Blood Pressure Monitor (BLOOD PRESSURE KIT) 1 Each as directed. Dx: essential hypertension - blood sugar diagnostic (BLOOD GLUCOSE TEST) test strip Test blood sugar(s) 2 times daily. Dx: Type 2 DM - Uncontrolled E11.65 Insulin: No - Lancets lancets Test blood sugar(s) 2 times daily. Dx: Type 2 DM - Uncontrolled E11.65 Insulin: No - Lancets (FREESTYLE LANCETS) lancets Test blood sugar(s) 2 times daily. Dx: 250.02. Insulin: No Problem List As Of Date 07/29/2023 Noted Resolved Diabetes mellitus type 2, controlled, without c*07/13/2006 12/08/2022 BENIGN HYPERTENSION [I10] 07/13/2006 ADJUSTMENT DISORDER WITH DEPRESSED MOOD [F43.21]07/13/2006 ANXIETY STATE NOS [F41.1] 07/13/2006 Hypothyroidism [E03.9] 07/13/2006 Abdominal pain, right upper quadrant [R10.11] 02/16/2007 12/08/2022 Tobacco Use Disorder [F17.200] 10/29/2009 Celiac disease [K90.0] 11/06/2009 Fatigue [R53.83] 09/07/2017 Medial epicondylitis, left [M77.02] 09/07/2017 Controlled type 2 diabetes mellitus without com*10/12/2018 12/08/2022 Situational anxiety [F41.8] 10/12/2018 Dyslipidemia [E78.5] 10/12/2018 Aortic stenosis, moderate [I35.0] 08/2019 Uncontrolled type 2 diabetes mellitus with hype*05/21/2020 Palpitations [R00.2] 02/19/2022 Uncontrolled hypertension [I10] 02/19/2022 Vitamin B12 deficiency [E53.8] 09/10/2022 Vitamin D deficiency [E55.9] 09/10/2022 History of tobacco abuse [Z87.891] 03/18/2023 Encounter Status:Closed by DONNA NOVAK MA on 07/29/23 [facility] [place] 07[facility]28[facility]20[facility] FRANCISTIA Walker ([id number]) 1955 F Date Time Provider Department 07/28/23 PREET FARRARPYASMEEN During your visit today, we recorded the following information about you: Chelo Prasad RN 07/28/2023 1:[address] Stapleton from [facility] calling to give message to pt's PCP. Dr. Stapleton states he saw patient yesterday. Potassium level was 3.1 yesterday. He recommended potassium supplementation and patient prefers to increase potassium using dietary measures as well as wants PCP to address low potassium. Dr. Stapleton states he will be faxing over patient's recent labs with potassium level included. Informed Dr. Stapleton that message would be sent to Dr. Farrar immediately. Please advise patient. Thank you. Preet Farrar DO 07/28/2023 1:48 PM Signed If she wants to try to replace the potassium with potassium rich foods, then needs lab redrawn by Thursday. Order placed Please inform DO Prabhjot Urban Susan LPN 07/28/2023 2:15 PM Signed Pt. informed. Karen Mejia LPN Allergies As of Date: 07/28/2023 Noted Allergy Reaction ASA (SALICYLATES) 01/05/2006 GLUTEN 10/17/2016 16 - Unknown METFORMIN 06/20/2010 Comments: nausea.. can take name brand PREDNISONE 10/02/2012 9 - Itching SULFA (SULFONAMIDE ANTIBIOTICS) 12/29/2005 Date Reviewed: 07/15/2023 Reviewed by: Leah Rivero APRN.TECHNICAL COMMUNICATOR - Fully Assessed Reason for Visit: Call from Dr. Stapleton, Neurologist [Other] Primary Visit Diagnosis:Hypokalemi a [E87.6] Order(s):POTASSIUM BLD [SQK1] Order #: [id number] FUTURE Prescriptions as of 07/28/2023 - semaglutide (OZEMPIC) 1 mg/dose (4 mg/3 mL) pen Inject 1 mg subcutaneously one time a week. - flash glucose scanning reader (FREESTYLE TARA 2 READER) 1 Device as directed. Type 2 diabetes uncontrolled, no insulin - ARMOUR THYROID 120 mg tablet Take 1 tablet PO daily in AM - glimepiride (AMARYL) 2 mg tablet Take 1 tablet by mouth two times a day with meals. - semaglutide (OZEMPIC) 2 mg/dose (8 mg/3 mL) pen injector Inject 2 mg subcutaneously one time a week. - atorvastatin (LIPITOR) 80 mg tablet Take 1 tablet by mouth once daily. - clopidogrel (PLAVIX) 75 mg tablet Take 1 tablet by mouth once daily. - Cyanocobalamin 1,000 mcg TbER 2 tablets daily - blood sugar diagnostic (FREESTYLE LITE STRIPS) test strip Test blood sugar(s) 8 times daily. Dx: E11.65. Insulin: No - elderberry fruit 350 mg cap Take 1 capsule by mouth once daily. - ondansetron orally disintegrating (ZOFRAN ODT) 4 mg disintegrating tablet Take 1 tablet by mouth every 8 hours as needed for nausea/vomiting. - ergocalciferol 50,000 unit capsule (VITAMIN D2, DRISDOL) Take 1 capsule by mouth two times a week. - Blood Pressure Monitor (BLOOD PRESSURE KIT) 1 Each as directed. Dx: essential hypertension - blood sugar diagnostic (BLOOD GLUCOSE TEST) test strip Test blood sugar(s) 2 times daily. Dx: Type 2 DM - Uncontrolled E11.65 Insulin: No - Lancets lancets Test blood sugar(s) 2 times daily. Dx: Type 2 DM - Uncontrolled E11.65 Insulin: No - Lancets (FREESTYLE LANCETS) lancets Test blood sugar(s) 2 times daily. Dx: 250.02. Insulin: No Problem List As Of Date 07/28/2023 Noted Resolved Diabetes mellitus type 2, controlled, without c*07/13/2006 12/08/2022 BENIGN HYPERTENSION [I10] 07/13/2006 ADJUSTMENT DISORDER WITH DEPRESSED MOOD [F43.21]07/13/2006 ANXIETY STATE NOS [F41.1] 07/13/2006 Hypothyroidism [E03.9] 07/13/2006 Abdominal pain, right upper quadrant [R10.11] 02/16/2007 12/08/2022 Tobacco Use Disorder [F17.200] 10/29/2009 Celiac disease [K90.0] 11/06/2009 Fatigue [R53.83] 09/07/2017 Medial epicondylitis, left [M77.02] 09/07/2017 Controlled type 2 diabetes mellitus without com*10/12/2018 12/08/2022 Situational anxiety [F41.8] 10/12/2018 Dyslipidemia [E78.5] 10/12/2018 Aortic stenosis, moderate [I35.0] 08/2019 Uncontrolled type 2 diabetes mellitus with hype*05/21/2020 Palpitations [R00.2] 02/19/2022 Uncontrolled hypertension [I10] 02/19/2022 Vitamin B12 deficiency [E53.8] 09/10/2022 Vitamin D deficiency [E55.9] 09/10/2022 History of tobacco abuse [Z87.891] 03/18/2023 Encounter Status:Closed by KAREN MEJIA LPN on 07/28/23 Normal [facility] XR ANKLE GENERAL 3V AP/LAT/O BL LEFTon 02-28-2022 [facility] XR ANKLE GENERAL 3V AP/LAT/O BL LEFTon 02-10-2022 [facility] XR ANKLE GENERAL 3V AP/LAT/O BL LEFTon 01-23-2022 [facility] XR Ankle - left AP and Later al and obliqueon 01-23-2022 IMPRESSION: Possible small fracture involving the inferior aspect of the lateral malleolus. Calcaneal spurring. Quality Director: AUGUSTIN Transcribe Date/Time: Jan 23 2022 5:55P Dictated by : RODRIGO GONSALVES MD This examination was interpreted and the report reviewed and electronically signed by: RODRIGO GONSALVES MD on Jan 23 2022 5:59PM EST ZZZ_DO_NOT_U SE_DIVISION OF RADIOLOGY * * *Final Report* * * DATE OF EXAM: Jan 23 2022 5:50PM WOX [id number] - XR ANKLE 3V AP/LAT/OBL LT / PROCEDURE REASON: Acute left ankle pain * * * * Physician Interpretation * * * * LEFT ANKLE X-RAY SERIES HISTORY: Acute left ankle pain TECHNIQUE: Bilateral AP standing ankles, oblique and lateral view the left ankle. COMPARISON: None available. RESULT: There is a lucency involving the inferior aspect of the lateral malleolus which is suspicious for a nondisplaced fracture. Otherwise, no evidence of fracture or dislocation. Calcaneal spurring is noted. There is mild spurring involving the tibiotalar joint. Soft tissue swelling is noted adjacent to the lateral malleolus. ZZZ_DO_NOT_U SE_DIVISION OF RADIOLOGY Provider, [facility] [place] - 01/23/2022 * * *Final Report* * * DATE OF EXAM: Jan 23 2022 5:50PM WOX 5298 - XR ANKLE 3V AP/LAT/OBL LT / PROCEDURE REASON: Acute left ankle pain * * * * Physician Interpretation * * * * LEFT ANKLE X-RAY SERIES HISTORY: Acute left ankle pain TECHNIQUE: Bilateral AP standing ankles, oblique and lateral view the left ankle. COMPARISON: None available. RESULT: There is a lucency involving the inferior aspect of the lateral malleolus which is suspicious for a nondisplaced fracture. Otherwise, no evidence of fracture or dislocation. Calcaneal spurring is noted. There is mild spurring involving the tibiotalar joint. Soft tissue swelling is noted adjacent to the lateral malleolus. IMPRESSION IMPRESSION: Possible small fracture involving the inferior aspect of the lateral malleolus. Calcaneal spurring. Quality Director: AUGUSTIN Transcribe Date/Time: Jan 23 2022 5:55P Dictated by : RODRIGO GONSALVES MD This examination was interpreted and the report reviewed and electronically signed by: RODRIGO GONSALVES MD on Jan 23 2022 5:59PM EST [facility] Radiology Study observation (narrative) [facility] XR Ankle - left AP and Later al and obliqueOrdered By: [facility] Provider on 01-23-2022 [facility] Glucose,Bedsideon 12-28-2020 Glucose [Mass/Vol] 344 mg/dL High 70-100 [facility] [employer] Comment on above: Result Comment: Test performed by glucose meter. Results may be 10%-15% lower than serum/plasma values. (CLIA ID [id number]) Performed By: #### B GLU #### [facility] [employer] [address] [place] [phone] Glucose [Mass/Vol] 200 mg/dL High 70-100 [facility] [employer] [facility] Comment on above: Result Comment: Test performed by glucose meter. Results may be 10%-15% lower than serum/plasma values. (CLIA ID [id number]) Performed By: #### B GLU #### [facility] [address] [place] [phone] POCT Glucoseon 12-28-2020 Glucose [Mass/Vol] 344 mg/dL High 70 - 100 mg/dL [employer] Work Phone: Comment on above: Test performed by gl ucose meter. Results may be 10%-15% lower than serum/plasma values. (CLIA ID [id number]) Interpretation and review of laboratory results Abnormal [employer] Work Phone: Test Performed by [employer], [address] [place] [id number] [facility] Work Phone: Glucose [Mass/Vol] 200 mg/dL High 70 - 100 mg/dL [employer] Work Phone: Comment on above: Test performed by gl ucose meter. Results may be 10%-15% lower than serum/plasma values. (CLIA ID [id number]) Interpretation and review of laboratory results Abnormal [employer] Work Phone: Test Performed by [employer], [address] [place] [id number] [facility] Work Phone: COVID-19on 12-27-2020 SARS-CoV-2 Not Detected. Not Detected [facility] Work Phone: Comment on above: Not Detected. Expected Result: Not Detected _ Real-time, RT-PCR performed on the [employer] System by the [facility] Negative results do not preclude SARS-CoV-2 infection and should not be used as the sole basis for treatment or other patient management decisions. This assay was developed and its performance characteristics determined by the [facility] [employer] [facility]. The U. S. Food and Drug Administration has not approved or cleared this test; however, FDA clearance or approval is not currently required for clinical use. Test Performed by [employer], [address] [place] [address] Glucose,Bedsideon 12-27-2020 Glucose [Mass/Vol] 124 mg/dL High 70-100 [facility] Comment on above: Result Comment: Test performed by glucose meter. Results may be 10%-15% lower than serum/plasma values. (CLIA ID [id number]) Performed By: #### B GLU #### [facility] [address] [address] [place] [address] Glucose [Mass/Vol] 197 mg/dL High 70-100 [facility] Comment on above: Result Comment: Test performed by glucose meter. Results may be 10%-15% lower than serum/plasma values. (CLIA ID [id number]) Performed By: #### B GLU #### [employer] [address] [address] [place] [address] Glucose [Mass/Vol] 215 mg/dL High 70-100 [facility] Comment on above: Result Comment: Test performed by glucose meter. Results may be 10%-15% lower than serum/plasma values. (CLIA ID [id number]) Performed By: #### B GLU #### [employer] [address] [address] POCT Glucoseon 12-27-2020 Glucose [Mass/Vol] 124 mg/dL High 70 - 100 mg/dL [employer] Work Phone: Comment on above: Test performed by gl ucose meter. Results may be 10%-15% lower than serum/plasma values. (CLIA ID [id number]) Interpretation and review of laboratory results Abnormal [facility] Work Phone: Test Performed by [employer], [address] [place] [address] [facility] Work Phone: Glucose [Mass/Vol] 197 mg/dL High 70 - 100 mg/dL [employer] Work Phone: Comment on above: Test performed by gl ucose meter. Results may be 10%-15% lower than serum/plasma values. (CLIA ID [id number]) Interpretation and review of laboratory results Abnormal [facility] Work Phone: Test Performed by [employer], [address] [place] [address] [facility] Work Phone: Glucose [Mass/Vol] 215 mg/dL High 70 - 100 mg/dL [employer] Work Phone: [phone] Comment on above: Test performed by gl ucose meter. Results may be 10%-15% lower than serum/plasma values. (CLIA ID [id number]) Interpretation and review of laboratory results Abnormal [facility] Work Phone: Test Performed by [facility] [address] [place] [address] [facility] Work Phone: [id number] 12-27-2020 SARS-CoV-2 (COVID-19) RNA NELL+probe Ql (Unsp spec) SARS-CoV-2 --> Status: F Not Detected. Expected Result: Not Detected _ Real-time, RT-PCR performed on the [employer] System by the [facility] [employer] Negative results do not preclude SARS-CoV-2 infection and should not be used as the sole basis for treatment or other patient management decisions. This assay was developed and its performance characteristics determined by the [facility] [employer]. The U. S. Food and Drug Administration has not approved or cleared this test; however, FDA clearance or approval is not currently required for clinical use. Expected Result: Not Detected _ Real-time, RT-PCR performed on the [employer] System by the [facility] [employer] Negative results do not preclude SARS-CoV-2 infection and should not be used as the sole basis for treatment or other patient management decisions. This assay was developed and its performance characteristics determined by the [facility] [employer]. The [place]. [place]. Food and Drug Administration has not approved or cleared this test; however, FDA clearance or approval is not currently required for clinical use. Normal [facility] [employer] [facility] Comment on above: Performed By: #### B GLU #### [facility] [employer] [address] [address] [place] [address] Glucose,Bedsideon 12-26-2020 Glucose [Mass/Vol] 186 mg/dL High 70-100 [facility] [employer] [facility] Comment on above: Result Comment: Test performed by glucose meter. Results may be 10%-15% lower than serum/plasma values. (CLIA ID [id number]) Performed By: #### B GLU #### [facility] [employer] [facility] [address] [place] [address] Glucose [Mass/Vol] 213 mg/dL High 70-100 [facility] Comment on above: Result Comment: Test performed by glucose meter. Results may be 10%-15% lower than serum/plasma values. (CLIA ID [id number]) Performed By: #### B GLU #### [facility] [address] [place] [address] Glucose [Mass/Vol] 190 mg/dL High 70-100 [facility] Comment on above: Result Comment: Test performed by glucose meter. Results may be 10%-15% lower than serum/plasma values. (CLIA ID [id number]) Performed By: #### M DIFF, HEMDF #### [address] [place] [address] Glucose [Mass/Vol] 238 mg/dL High 70-100 [facility] Comment on above: Result Comment: Test performed by glucose meter. Results may be 10%-15% lower than serum/plasma values. (CLIA ID [id number]) Performed By: #### B GLU #### [address] [place] [address] Glucose [Mass/Vol] 179 mg/dL High 70-100 [facility] Comment on above: Result Comment: Test performed by glucose meter. Results may be 10%-15% lower than serum/plasma values. (CLIA ID [id number]) Performed By: #### B GLU #### [facility] [address] [address] [place] [address] POCT Glucoseon 12-26-2020 Glucose [Mass/Vol] 186 mg/dL High 70 - 100 mg/dL [employer] Work Phone: Comment on above: Test performed by gl ucose meter. Results may be 10%-15% lower than serum/plasma values. (CLIA ID [id number]) Interpretation and review of laboratory results Abnormal [facility] Work Phone: Test Performed by [employer], [facility] [place] [address] [employer] Work Phone: [phone] Glucose [Mass/Vol] 213 mg/dL High 70 - 100 mg/dL [employer] Work Phone: 1 Comment on above: Test performed by gl ucose meter. Results may be 10%-15% lower than serum/plasma values. (CLIA ID [id number]) Interpretation and review of laboratory results Abnormal [employer] Work Phone: [phone] Test Performed by [employer], [facility] [place] [address] [employer] Work Phone: 1 Glucose [Mass/Vol] 190 mg/dL High 70 - 100 mg/dL [employer] Work Phone: 1 Comment on above: Test performed by gl ucose meter. Results may be 10%-15% lower than serum/plasma values. (CLIA ID [id number]) Interpretation and review of laboratory results Abnormal [employer] Work Phone: [phone] Test Performed by [employer], [facility] [place] [address] [employer] Work Phone: [phone] Glucose [Mass/Vol] 238 mg/dL High 70 - 100 mg/dL [employer] Work Phone: 1 Comment on above: Test performed by gl ucose meter. Results may be 10%-15% lower than serum/plasma values. (CLIA ID [id number]) Interpretation and review of laboratory results Abnormal [employer] Work Phone: [phone] Test Performed by [employer], [facility] [place] [address] [employer] Work Phone: Glucose,Bedsideon 12-25-2020 Glucose [Mass/Vol] 250 mg/dL High 70-100 [employer] Comment on above: Result Comment: Test performed by glucose meter. Results may be 10%-15% lower than serum/plasma values. (CLIA ID [id number]) Performed By: #### B GLU #### [employer] [facility] [place] [address] Glucose [Mass/Vol] 252 mg/dL High 70-100 [facility] [employer] [facility] Comment on above: Result Comment: Test performed by glucose meter. Results may be 10%-15% lower than serum/plasma values. (CLIA ID [id number]) Performed By: #### B GLU #### [employer] [address] [place] [address] Glucose [Mass/Vol] 218 mg/dL High 70-100 [facility] Comment on above: Result Comment: Test performed by glucose meter. Results may be 10%-15% lower than serum/plasma values. (CLIA ID [id number]) Performed By: #### B GLU #### [employer] [address] [place] [address] POCT Glucoseon 12-25-2020 Glucose [Mass/Vol] 179 mg/dL High 70 - 100 mg/dL [employer] Work Phone: Comment on above: Test performed by gl ucose meter. Results may be 10%-15% lower than serum/plasma values. (CLIA ID [id number]) Interpretation and review of laboratory results Abnormal [employer] Work Phone: Test Performed by [employer], [address] [place] [address] [facility] Work Phone: Glucose [Mass/Vol] 250 mg/dL High 70 - 100 mg/dL [employer] Work Phone: Comment on above: Test performed by gl ucose meter. Results may be 10%-15% lower than serum/plasma values. (CLIA ID [id number]) Interpretation and review of laboratory results Abnormal [employer] Work Phone: Test Performed by [employer], [facility] [place] [address] [facility] Work Phone: Glucose [Mass/Vol] 252 mg/dL High 70 - 100 mg/dL [employer] Work Phone: Comment on above: Test performed by gl ucose meter. Results may be 10%-15% lower than serum/plasma values. (CLIA ID [id number]) Interpretation and review of laboratory results Abnormal [employer] Work Phone: 1 Test Performed by [employer], [place] [address] [facility] Work Phone: 1 Glucose [Mass/Vol] 218 mg/dL High 70 - 100 mg/dL [employer] Work Phone: Comment on above: Test performed by [employer] ucose meter. Results may be 10%-15% lower than serum/plasma values. (CLIA ID [id number]) Interpretation and review of laboratory results Abnormal [facility] Work Phone: 1 Test Performed by [employer], [place] [address] [facility] Work Phone: 1 CBC Auto Differentialon 11-27 Absolute Baso # 0.1 10*3/uL 0.0 - 0.2 10*3/uL [facility] Work Phone: Absolute Neut # 8.6 10*3/uL High 1.8 - 7.0 10*3/uL [facility] Work Phone: Basophils/100 WBC (Bld) 0.4 % 0.0 - 2.0 % [facility] Work Phone: Eosinophils (Bld) [#/Vol] 0.2 10*3/uL 0.0 - 0.5 10*3/uL [facility] Work Phone: Eosinophils/100 WBC (Bld) 1.5 % 1.0 - 6.0 % [facility] Work Phone: Erythrocyte distribution width (RBC) [Ratio] 13.6 % 11.5 - 14.5 % [facility] Work Phone: Granulocytes/100 WBC (Bld) 59.5 % 40.0 - 80.0 % [facility] Work Phone: Hematocrit (Bld) [Volume fraction] 37.2 % 35.0 - 47.0 % [facility] Work Phone: Hemoglobin (Bld) [Mass/Vol] 12.5 g/dL 11.7 - 16.0 g/dL [facility] Work Phone: Interpretation and review of laboratory results Abnormal [employer] Work Phone: 1 Lymphocytes (Bld) [#/Vol] 4.5 10*3/uL High 1.0 - 4.3 10*3/uL [employer] Work Phone: [phone] 22 Lymphocytes/100 WBC (Bld) 30.8 % 20.0 - 40.0 % [employer] Work Phone: 1 MCH (RBC) [Entitic mass] 30.4 pg 26.0 - 34.0 pg [employer] Work Phone: 1 MCHC (RBC) [Mass/Vol] 33.6 % 32.0 - 36.0 % [employer] Work Phone: 1 MCV (RBC) [Entitic vol] 90.3 fL 79.0 - 98.0 fL [employer] Work Phone: 1 Monocytes (Bld) [#/Vol] 1.1 10*3/uL High 0.0 - 0.8 10*3/uL [employer] Work Phone: 1 Monocytes/100 WBC (Bld) 7.8 % 2.0 - 10.0 % [employer] Work Phone: 1 Platelet mean volume (Bld) [Entitic vol] 7.7 fL 7.4 - 10.4 fL [employer] Work Phone: 1 Platelets (Bld) [#/Vol] 278 10*3/uL 140 - 440 10*3/uL [employer] Work Phone: 1 RBC (Bld) [#/Vol] 4.12 10*6/uL 3.80 - 5.2 0 10*6/uL [employer] Work Phone: 1 WBC (Bld) [#/Vol] 14.5 10*3/uL High 3.6 - 10.7 10*3/uL [employer] Work Phone: 1 Test Performed by [employer], [address] [place] [address] [employer] Work Phone: Glucose, Bedsideon 1 Confirmation see below Normal [employer] Comment on above: Result Comment: No c onfirmation received. Performed By: #### G LUB #### [facility] [address] [place] [address] Glucose,Bedside > 450 High 70-100 [facility] Comment on above: Result Comment: Test performed by glucose meter. Results may be 10%-15% lower than serum/plasma values. (CLIA ID [id number]) Performed By: #### G LUB #### [facility] [address] [place] [facility] [place] [address] Glucose,Bedsideon 12-24-2020 Glucose [Mass/Vol] 242 mg/dL High 70-100 [facility] Comment on above: Result Comment: Test performed by glucose meter. Results may be 10%-15% lower than serum/plasma values. (CLIA ID [id number]) Performed By: #### M DIFF, HEMDF #### [facility] [address] [place] [address] Glucose [Mass/Vol] 314 mg/dL [facility] 70-100 [facility] Comment on above: Result Comment: Test performed by glucose meter. Results may be 10%-15% lower than serum/plasma values. (CLIA ID [id number]) Performed By: #### M DIFF, HEMDF #### [facility] [address] [place] [address] Glucose [Mass/Vol] 192 mg/dL High 70-100 [facility] Comment on above: Result Comment: Test performed by glucose meter. Results may be 10%-15% lower than serum/plasma values. (CLIA ID [id number]) Performed By: #### M DIFF, HEMDF #### [facility] [address] [place] [facility] [place] [address] Glucose [Mass/Vol] 189 mg/dL High 70-100 [facility] Comment on above: Result Comment: Test performed by glucose meter. Results may be 10%-15% lower than serum/plasma values. (CLIA ID [id number]) Performed By: #### B GLU #### [facility] [address] [place] [address] Glucose [Mass/Vol] 201 mg/dL High 70-100 [facility] Comment on above: Result Comment: Test performed by glucose meter. Results may be 10%-15% lower than serum/plasma values. (CLIA ID [id number]) Performed By: #### M DIFF, HEMDF #### [address] [place], [place] Glucose [Mass/Vol] 247 mg/dL High 70-100 [facility] Comment on above: Result Comment: Test performed by glucose meter. Results may be 10%-15% lower than serum/plasma values. (CLIA ID [id number]) Performed By: #### M DIFF, HEMDF #### [address] [place], [place] Hemogram w/ Autodiffon 12-24 Abs Baso Cnt 0.1 10*3/uL Normal 0.0-0.2 [facility] Comment on above: Performed By: #### B GLU #### [address] [address] [place], [place] Abs Neutrophile Cnt 8.6 10*3/uL High 1.8-7.0 [facility] Comment on above: Performed By: #### B GLU #### [address] [place], [place] Basophils/100 WBC (Bld) 0.4 % Normal 0.0-2.0 [facility] Comment on above: Performed By: #### B GLU #### [address] [place], [place] Eosinophils (Bld) [#/Vol] 0.2 10*3/uL Normal 0.0-0.5 [facility] Comment on above: Performed By: #### B GLU #### [address] Eosinophils/100 WBC (Bld) 1.5 % Normal 1.0-6.0 [facility] Comment on above: Performed By: #### B GLU #### [address] [place], [place] Erythrocyte distribution width (RBC) [Ratio] 13.6 % Normal 11.5-14.5 [facility] Comment on above: Performed By: #### B GLU #### [address] [place], [place] Granulocytes/100 WBC (Bld) 59.5 % Normal 40.0-80.0 [facility] Comment on above: Performed By: #### B GLU #### [address] [place], [place] Hematocrit (Bld) [Volume fraction] 37.2 % Normal 35.0-47.0 [facility] Comment on above: Performed By: #### B GLU #### [address] [place], [place] Hemoglobin (Bld) [Mass/Vol] 12.5 g/dL Normal 11.7-16.0 [facility] Comment on above: Performed By: #### B GLU #### [address] [place], [place] Lymphocytes (Bld) [#/Vol] 4.5 10*3/uL High 1.0-4.3 [facility] Comment on above: Performed By: #### B GLU #### [address] [place], [place] Lymphocytes/100 WBC (Bld) 30.8 % Normal 20.0-40.0 [facility] Comment on above: Performed By: #### B GLU #### [address] [place], [place] MCH (RBC) [Entitic mass] 30.4 pg Normal 26.0-34.0 [facility] Comment on above: Performed By: #### B GLU #### [address] [place], [place] MCHC 33.6 % Normal 32.0-36.0 [facility] Comment on above: Performed By: #### B GLU #### [address] [place], [place] MCV (RBC) [Entitic vol] 90.3 fL Normal 79.0-98.0 [facility] Comment on above: Performed By: #### B GLU #### [facility] [address] [place] [address] Monocytes (Bld) [#/Vol] 1.1 10*3/uL High 0.0-0.8 [facility] Comment on above: Performed By: #### B GLU #### [facility] [address] [place] [address] Monocytes/100 WBC (Bld) 7.8 % Normal 2.0-10.0 [facility] Comment on above: Performed By: #### B GLU #### [facility] [address] [place] [address] Platelet mean volume (Bld) [Entitic vol] 7.7 fL Normal 7.4-10.4 [facility] Comment on above: Performed By: #### B GLU #### [facility] [address] [place] [address] Platelets (Bld) [#/Vol] 278 10*3/uL Normal 140-440 [facility] Comment on above: Performed By: #### B GLU #### [facility] [address] [place] [address] RBC (Bld) [#/Vol] 4.12 10*6/uL Normal 3.80-5.20 [facility] Comment on above: Performed By: #### B GLU #### [facility] [address] [place] [address] WBC (Bld) [#/Vol] 14.5 10*3/uL High 3.6-10.7 [facility] Comment on above: Performed By: #### B GLU #### [facility] [address] [place] [address] POC Glucose, Whole Bloodon 0 - Glucose [Mass/Vol] mg/dL High 70 - 100 mg/dL [employer] Work Phone: Comment on above: Test performed by gl ucose meter. Results may be 10%-15% lower than serum/plasma values. (CLIA ID [id number]) Interpretation and review of laboratory results Abnormal [facility] Work Phone: [phone] Sodium [Moles/Vol] see below [facility] Work Phone: 1 Comment on above: No confirmation rece ived. Test Performed by [employer], [facility] [place] [address] [employer] Work Phone: [phone] POCT Glucoseon 12-24-2020 Glucose [Mass/Vol] 242 mg/dL High 70 - 100 mg/dL [employer] Work Phone: 1 Comment on above: Test performed by gl ucose meter. Results may be 10%-15% lower than serum/plasma values. (CLIA ID [id number]) Interpretation and review of laboratory results Abnormal [employer] Work Phone: 1 Test Performed by [employer], [facility] [place] [address] [employer] Work Phone: 1 Glucose [Mass/Vol] 314 mg/dL High 70 - 100 mg/dL [employer] Work Phone: 1 Comment on above: Test performed by gl ucose meter. Results may be 10%-15% lower than serum/plasma values. (CLIA ID [id number]) Interpretation and review of laboratory results Abnormal [employer] Work Phone: 1 Test Performed by [employer], [facility] [place] [address] [employer] Work Phone: 1 Glucose [Mass/Vol] 192 mg/dL High 70 - 100 mg/dL [employer] Work Phone: 1 Comment on above: Test performed by gl ucose meter. Results may be 10%-15% lower than serum/plasma values. (CLIA ID [id number]) Interpretation and review of laboratory results Abnormal [employer] Work Phone: [phone] Test Performed by [employer], [facility] [place] [address] [employer] Work Phone: 1 Glucose [Mass/Vol] 189 mg/dL High 70 - 100 mg/dL [employer] Work Phone: 1 Comment on above: Test performed by gl ucose meter. Results may be 10%-15% lower than serum/plasma values. (CLIA ID [id number]) Interpretation and review of laboratory results Abnormal [employer] Work Phone: 1 Test Performed by [employer], [address] [place] [address] [employer] Work Phone: 1 Glucose [Mass/Vol] 201 mg/dL High 70 - 100 mg/dL [employer] Work Phone: Comment on above: Test performed by gl ucose meter. Results may be 10%-15% lower than serum/plasma values. (CLIA ID [id number]) Interpretation and review of laboratory results Abnormal [employer] Work Phone: 1 Test Performed by [employer], [address] [place] [address] [employer] Work Phone: Glucose [Mass/Vol] 247 mg/dL High 70 - 100 mg/dL [employer] Work Phone: Comment on above: Test performed by gl ucose meter. Results may be 10%-15% lower than serum/plasma values. (CLIA ID [id number]) Interpretation and review of laboratory results Abnormal [employer] Work Phone: 1 Test Performed by [employer], [address] [place] [address] [employer] Work Phone: 1 TSH without Reflexon 021 TSH Qn 3.200 u[IU]/mL 0.465 - 4.680 u[IU]/mL [employer] Work Phone: Test Performed by [employer], [address] [place] [address] [employer] Work Phone: Thyroid Stim. Hormoneon 11-27 Thyroid Stim. Hormone 3.200 u[IU]/mL Normal 0.465-4.680 [employer] Comment on above: Performed By: #### M DIFF, HEMDF #### [employer] [address] [place] [address] CBC Auto Differentialon 11-27 Absolute Baso # 0.1 10*3/uL 0.0 - 0.2 10*3/uL [employer] Work Phone: [phone] Absolute Neut # 13.3 10*3/uL High 1.8 - 7.0 10*3/uL [employer] Work Phone: 1 22 Basophils/100 WBC (Bld) 0.8 % 0.0 - 2.0 % [employer] Work Phone: Eosinophils (Bld) [#/Vol] 0.0 10*3/uL 0.0 - 0.5 10*3/uL [employer] Work Phone: 1 22 Eosinophils/100 WBC (Bld) 0.0 % Low 1.0 - 6.0 % [employer] Work Phone: Erythrocyte distribution width (RBC) [Ratio] 13.4 % 11.5 - 14.5 % [employer] Work Phone: Granulocytes/100 WBC (Bld) 85.4 % High 40.0 - 80.0 % [employer] Work Phone: Hematocrit (Bld) [Volume fraction] 37.0 % 35.0 - 47.0 % [employer] Work Phone: Hemoglobin (Bld) [Mass/Vol] 12.6 g/dL 11.7 - 16.0 g/dL [employer] Phone: Interpretation and review of laboratory results Abnormal [employer] Phone: Lymphocytes (Bld) [#/Vol] 1.4 10*3/uL 1.0 - 4.3 10*3/uL [employer] Work Phone: 22 Lymphocytes/100 WBC (Bld) 8.9 % Low 20.0 - 40.0 % [employer] Work Phone: MCH (RBC) [Entitic mass] 30.8 pg 26.0 - 34.0 pg [employer] Work Phone: MCHC (RBC) [Mass/Vol] 34.1 % 32.0 - 36.0 % [employer] Work Phone: MCV (RBC) [Entitic vol] 90.3 fL 79.0 - 98.0 fL [employer] Work Phone: [phone] Monocytes (Bld) [#/Vol] 0.8 10*3/uL 0.0 - 0.8 10*3/uL [employer] Work Phone: [phone] Monocytes/100 WBC (Bld) 4.9 % 2.0 - 10.0 % [employer] Work Phone: [phone] Platelet mean volume (Bld) [Entitic vol] 7.9 fL 7.4 - 10.4 fL [employer] Work Phone: [phone] Platelets (Bld) [#/Vol] 287 10*3/uL 140 - 440 10*3/uL [employer] Work Phone: [phone] RBC (Bld) [#/Vol] 4.10 10*6/uL 3.80 - 5.2 0 10*6/uL [employer] Work Phone: [phone] WBC (Bld) [#/Vol] 15.6 10*3/uL High 3.6 - 10.7 10*3/uL [employer] Work Phone: [phone] Test Performed by [employer], [address] [place] [address] [employer] Work Phone: Glucose,Bedsideon 12-23-2020 Glucose [Mass/Vol] 192 mg/dL High 70-100 [facility] Comment on above: Result Comment: Test performed by glucose meter. Results may be 10%-15% lower than serum/plasma values. (CLIA ID [id number]) Performed By: #### B GLU #### [employer] [facility] [place] [address] Glucose [Mass/Vol] 244 mg/dL High 70-100 [facility] Comment on above: Result Comment: Test performed by glucose meter. Results may be 10%-15% lower than serum/plasma values. (CLIA ID [id number]) Performed By: #### B GLU #### [employer] [address] [place] [address] Glucose [Mass/Vol] 187 mg/dL High 70-100 [facility] Comment on above: Result Comment: Test performed by glucose meter. Results may be 10%-15% lower than serum/plasma values. (CLIA ID [id number]) Performed By: #### M DIFF, HEMDF #### [facility] [address] [place] [address] Glucose [Mass/Vol] 264 mg/dL High 70-100 [facility] Comment on above: Result Comment: Test performed by glucose meter. Results may be 10%-15% lower than serum/plasma values. (CLIA ID [id number]) Performed By: #### B GLU #### [address] [place] [address] Glucose [Mass/Vol] 246 mg/dL High 70-100 [facility] Comment on above: Result Comment: Test performed by glucose meter. Results may be 10%-15% lower than serum/plasma values. (CLIA ID [id number]) Performed By: #### M DIFF, HEMDF #### [address] [place] [address] Glucose [Mass/Vol] 325 mg/dL High 70-100 [facility] Comment on above: Result Comment: Test performed by glucose meter. Results may be 10%-15% lower than serum/plasma values. (CLIA ID [id number]) Performed By: #### B GLU #### [facility] [address] [place] [address] Hemogram w/ Autodiffon 12-23 Abs Baso Cnt 0.1 10*3/uL Normal 0.0-0.2 [facility] Comment on above: Performed By: #### M DIFF, HEMDF #### [facility] [address] [place] [address] Abs Neutrophile Cnt 13.3 10*3/uL High 1.8-7.[address] [facility] Comment on above: Performed By: #### M DIFF, HEMDF #### [facility] [address] [place] [address] Basophils/100 WBC (Bld) 0.8 % Normal 0.0-2.0 [facility] Comment on above: Performed By: #### M DIFF, HEMDF #### [facility] [address] [place] [address] Eosinophils (Bld) [#/Vol] 0.0 10*3/uL Normal 0.0-0.5 [facility] Comment on above: Performed By: #### M DIFF, HEMDF #### [facility] [address] [place] [address] Eosinophils/100 WBC (Bld) 0.0 % Low 1.0-6.0 [facility] Comment on above: Performed By: #### M DIFF, HEMDF #### [facility] [address] [place] [address] Erythrocyte distribution width (RBC) [Ratio] 13.4 % Normal 11.5-14.5 [facility] Comment on above: Performed By: #### M DIFF, HEMDF #### [facility] [address] [place] [address] Granulocytes/100 WBC (Bld) 85.4 % High 40.0-80.0 [facility] Comment on above: Performed By: #### M DIFF, HEMDF #### [facility] [address] [place] [address] Hematocrit (Bld) [Volume fraction] 37.0 % Normal 35.0-47.0 [facility] Comment on above: Performed By: #### M DIFF, HEMDF #### [facility] [address] [place] [address] Hemoglobin (Bld) [Mass/Vol] 12.6 g/dL Normal 11.7-16.0 [facility] Comment on above: Performed By: #### M DIFF, HEMDF #### [facility] [address] [place] [address] Lymphocytes (Bld) [#/Vol] 1.4 10*3/uL Normal 1.0-4.3 [facility] Comment on above: Performed By: #### M DIFF, HEMDF #### [facility] [address] [place] [address] Lymphocytes/100 WBC (Bld) 8.9 % Low 20.0-40.0 [facility] Comment on above: Performed By: #### M DIFF, HEMDF #### [facility] [address] [place], [place] MCH (RBC) [Entitic mass] 30.8 pg Normal 26.0-34.0 [facility] Comment on above: Performed By: #### M DIFF, HEMDF #### [facility] [address] [place], [place] MCHC 34.1 % Normal 32.0-36.0 [facility] Comment on above: Performed By: #### M DIFF, HEMDF #### [facility] [address] [place], [place] MCV (RBC) [Entitic vol] 90.3 fL Normal 79.0-98.0 [facility] Comment on above: Performed By: #### M DIFF, HEMDF #### [facility] [address] [place], [place] Monocytes (Bld) [#/Vol] 0.8 10*3/uL Normal 0.0-0.8 [facility] Comment on above: Performed By: #### M DIFF, HEMDF #### [facility] [address] [place], [place] Monocytes/100 WBC (Bld) 4.9 % Normal 2.0-10.0 [facility] Comment on above: Performed By: #### M DIFF, HEMDF #### [facility] [address] [place], [place] Platelet mean volume (Bld) [Entitic vol] 7.9 fL Normal 7.4-10.4 [facility] Comment on above: Performed By: #### M DIFF, HEMDF #### [facility] [address] [place], [place] Platelets (Bld) [#/Vol] 287 10*3/uL Normal 140-440 [facility] Comment on above: Performed By: #### M DIFF, HEMDF #### [facility] [address] [place], [place] RBC (Bld) [#/Vol] 4.10 10*6/uL Normal 3.80-5.20 [facility] [employer] [facility] Comment on above: Performed By: #### M DIFF, HEMDF #### [facility] [address] [place] [address] WBC (Bld) [#/Vol] 15.6 10*3/uL High 3.6-10.7 [facility] [employer] Comment on above: Performed By: #### M DIFF, HEMDF #### [facility] [address] [place] [address] POCT Glucoseon 12-23-2020 Glucose [Mass/Vol] 192 mg/dL High 70 - 100 mg/dL [employer] Work Phone: [phone] Comment on above: Test performed by gl ucose meter. Results may be 10%-15% lower than serum/plasma values. (CLIA ID [id number]) Interpretation and review of laboratory results Abnormal [employer] Work Phone: [phone] Test Performed by [employer], [address] [place] [address] [facility] Work Phone: [phone] Glucose [Mass/Vol] 244 mg/dL High 70 - 100 mg/dL [employer] Work Phone: 1 Comment on above: Test performed by gl ucose meter. Results may be 10%-15% lower than serum/plasma values. (CLIA ID [id number]) Interpretation and review of laboratory results Abnormal [employer] Work Phone: [phone] Test Performed by [employer], [facility] [place] [address] [facility] Work Phone: [phone] Glucose [Mass/Vol] 187 mg/dL High 70 - 100 mg/dL [employer] Work Phone: 1 Comment on above: Test performed by gl ucose meter. Results may be 10%-15% lower than serum/plasma values. (CLIA ID [id number]) Interpretation and review of laboratory results Abnormal [employer] Work Phone: [phone] Test Performed by [employer], [facility] [place] [address] [employer] Work Phone: [phone] Glucose [Mass/Vol] 264 mg/dL High 70 - 100 mg/dL [employer] Work Phone: 1 Comment on above: Test performed by gl ucose meter. Results may be 10%-15% lower than serum/plasma values. (CLIA ID [id number]) Interpretation and review of laboratory results Abnormal [employer] Work Phone: 1 Test Performed by [employer], [place] [address] [employer] Work Phone: 1 Glucose [Mass/Vol] 246 mg/dL High 70 - 100 mg/dL [employer] Work Phone: 1 Comment on above: Test performed by gl ucose meter. Results may be 10%-15% lower than serum/plasma values. (CLIA ID [id number]) Interpretation and review of laboratory results Abnormal [employer] Work Phone: 1 Test Performed by [employer], [place] [address] [employer] Work Phone: 1 Glucose [Mass/Vol] 325 mg/dL High 70 - 100 mg/dL [employer] Work Phone: Comment on above: Test performed by gl ucose meter. Results may be 10%-15% lower than serum/plasma values. (CLIA ID [id number]) Interpretation and review of laboratory results Abnormal [employer] Work Phone: 1 Test Performed [place] [address] [employer] Work Phone: 1 CBC Auto Differentialon 11-27 Erythrocyte distribution width (RBC) [Ratio] 13.7 % 11.5 - 14.5 % [employer] Work Phone: Hematocrit (Bld) [Volume fraction] 39.2 % 35.0 - 47.0 % [employer] Work Phone: Hemoglobin (Bld) [Mass/Vol] 13.1 g/dL 11.7 - 16.0 g/dL [employer] Work Phone: 1 Interpretation and review of laboratory results Abnormal [employer] Work Phone: [phone] MCH (RBC) [Entitic mass] 30.2 pg 26.0 - 34.0 pg [employer] Work Phone: 1 MCHC (RBC) [Mass/Vol] 33.3 % 32.0 - 36.0 % [employer] Work Phone: 1 MCV (RBC) [Entitic vol] 90.7 fL 79.0 - 98.0 fL [employer] Work Phone: 1 Platelet mean volume (Bld) [Entitic vol] 7.8 fL 7.4 - 10.4 fL [employer] Work Phone: 1 Platelets (Bld) [#/Vol] 315 10*3/uL 140 - 440 10*3/uL [employer] Work Phone: 1) RBC (Bld) [#/Vol] 4.32 10*6/uL 3.80 - 5.2 0 10*6/uL [employer] Work Phone: 1 WBC (Bld) [#/Vol] 19.6 10*3/uL High 3.6 - 10.7 10*3/uL [employer] Work Phone: 1 Test Performed by [employer], [address] [place] [address] [employer] Work Phone: 1 Glucose,Bedsideon 12-22-2020 Glucose [Mass/Vol] 239 mg/dL High 70-100 [facility] Comment on above: Result Comment: Test performed by glucose meter. Results may be 10%-15% lower than serum/plasma values. (CLIA ID [id number]) Performed By: #### B GLU #### [employer] [facility] [place] [address] Glucose [Mass/Vol] 276 mg/dL High 70-100 [facility] Comment on above: Result Comment: Test performed by glucose meter. Results may be 10%-15% lower than serum/plasma values. (CLIA ID [id number]) Performed By: #### B GLU #### [employer] [address] [place] [address] Glucose [Mass/Vol] 361 mg/dL High 70-100 [facility] Comment on above: Result Comment: Test performed by glucose meter. Results may be 10%-15% lower than serum/plasma values. (CLIA ID [id number]) Performed By: #### B GLU #### [facility] [address] [place] [address] Glucose [Mass/Vol] 323 mg/dL High 70-100 [facility] Comment on above: Result Comment: Test performed by glucose meter. Results may be 10%-15% lower than serum/plasma values. (CLIA ID [id number]) Performed By: #### B GLU #### [facility] [address] [place] [address] Glucose [Mass/Vol] 351 mg/dL High 70-100 [facility] Comment on above: Result Comment: Test performed by glucose meter. Results may be 10%-15% lower than serum/plasma values. (CLIA ID [id number]) Performed By: #### B GLU #### [facility] [address] [place] [address] Glucose [Mass/Vol] 293 mg/dL High 70-[address] [place] [address] Comment on above: Result Comment: Test performed by glucose meter. Results may be 10%-15% lower than serum/plasma values. (CLIA ID [id number]) Performed By: #### B GLU #### [facility] [address] [place] [address] Hemoglobin A1Con 12-22-2020 Glucose [Mass/Vol] 203 mg/dL Normal [facility] Comment on above: Performed By: #### B GLU #### [facility] [address] [place] [address] HbA1c (Bld) [Mass fraction] 8.7 % Abnormal [facility] Comment on above: Result Comment: Norm al less than 5.7% Prediabetes 5.7% to 6.4% Diabetes 6.5% or higher --HgbA1C levels may not be accurate in patients who have renal disease, received recent blood transfusions, are anemic, or who have dyshemoglobinemia. Performed By: #### B GLU #### [facility] [address] [address] Hemoglobin A1con 12-22-2020 eAG 203 mg/dL [facility] Work Phone: HbA1c (Bld) [Mass fraction] 8.7 % Abnormal [facility] Work Phone: Comment on above: Normal less than 5.7 % Prediabetes 5.7% to 6.4% Diabetes 6.5% or higher --HgbA1C levels may not be accurate in patients who have renal disease, received recent blood transfusions, are anemic, or who have dyshemoglobinemia. Interpretation and review of laboratory results Abnormal [facility] Work Phone: Test Performed by [id number] [place] [address] Work Phone: Hemogram w/ [employer]od[employer] 12-22 Erythrocyte distribution width (RBC) [Ratio] 13.7 % Normal 11.5-14.5 [facility] Comment on above: Performed By: #### M DIFF, HEMDF #### [address] Hematocrit (Bld) [Volume fraction] 39.2 % Normal 35.0-47.0 [facility] Comment on above: Performed By: #### M DIFF, HEMDF #### [address] Hemoglobin (Bld) [Mass/Vol] 13.1 g/dL Normal 11.7-16.0 [facility] Comment on above: Performed By: #### M DIFF, HEMDF #### [address] MCH (RBC) [Entitic mass] 30.2 pg Normal 26.0-34.0 [facility] Comment on above: Performed By: #### M DIFF, HEMDF #### [address] MCHC 33.3 % Normal 32.0-36.0 [facility] Comment on above: Performed By: #### M DIFF, HEMDF #### [address] MCV (RBC) [Entitic vol] 90.7 fL Normal 79.0-98.0 [facility] Comment on above: Performed By: #### M DIFF, HEMDF #### [facility] [place] [address] [place], [place] Platelet mean volume (Bld) [Entitic vol] 7.8 fL Normal 7.4-10.4 [facility] Comment on above: Performed By: #### M DIFF, HEMDF #### [facility] [place] [address] [place], [place] Platelets (Bld) [#/Vol] 315 10*3/uL Normal 140-440 [facility] Comment on above: Performed By: #### M DIFF, HEMDF #### [facility] [place] [address] [place], [place] RBC (Bld) [#/Vol] 4.32 10*6/uL Normal 3.80-5.20 [facility] Comment on above: Performed By: #### M DIFF, HEMDF #### [facility] [place] [address] [place], [place] WBC (Bld) [#/Vol] 19.6 10*3/uL High 3.6-10.7 [facility] Comment on above: Performed By: #### M DIFF, HEMDF #### [facility] [place] [address] [place], [place] Manual Diffon 12-22-2020 Abs Lymph Cnt 2.7 10*3/uL Normal 1.1-4.5 [facility] Comment on above: Performed By: #### M DIFF, HEMDF #### [place] [address] [place], [place] Abs Monocyte Cnt 1.6 10*3/uL High 0.2-1.1 [facility] Comment on above: Performed By: #### M DIFF, HEMDF #### [place] [address] [place], [place] Abs Neutrophile Cnt 15.3 10*3/uL High 2.2-8.[address] [facility] Comment on above: Performed By: #### M DIFF, HEMDF #### [facility] [address] [place], [place] Lymphocytes 14 % Low 20-40 [facility] Comment on above: Performed By: #### M DIFF, HEMDF #### [facility] [address] [place], [place] Monocytes 8 % Normal 2-10 [facility] Comment on above: Performed By: #### M DIFF, HEMDF #### [place] [address] [place], [place] RBC Morphology Normal Normal [facility] Comment on above: Performed By: #### M DIFF, HEMDF #### [place] [address] [place], [place] Seg Neutrophils 78 % Normal 40-80 [facility] Comment on above: Performed By: #### M DIFF, HEMDF #### [place] [address] [place], [place] Abs Baso Cnt 0.0 10*3/uL Normal 0.0-0.2 [facility] Comment on above: Performed By: #### M DIFF, HEMDF #### [place] [address] [place], [place] Abs Eosin Cnt 0.0 10*3/uL Normal 0.0-0.5 [facility] Comment on above: Performed By: #### M DIFF, HEMDF #### [place] [address] [place], [place] Bands 0 % Normal 0-3 [facility] Comment on above: Performed By: #### M DIFF, HEMDF #### [place] [address] [place], [place] Basophils 0 % Normal 0-2 [facility] Comment on above: Performed By: #### M DIFF, HEMDF #### [place] [address] [place], [place] Cells counted 100 Normal [facility] Comment on above: Performed By: #### M DIFF, HEMDF #### [place] [address] [place], [place] Eosinophils 0 % Low 1-6 [facility] Comment on above: Performed By: #### M DIFF, HEMDF #### [employer] [address] [place] [address] Manual Differentialon 2020 Absolute Baso # 0.0 10*3/uL 0.0 - 0.2 10*3/uL [facility] Work Phone: [phone] 22 Absolute Eos # 0.0 10*3/uL 0.0 - 0.5 10*3/uL [facility] Work Phone: 1 22 Absolute Lymph # 2.7 10*3/uL 1.1 - 4.5 10*3/uL [facility] Work Phone: 1 Absolute [place] # 1.6 10*3/uL High 0.2 - 1.1 10*3/uL [facility] Work Phone: 1 22 Absolute Neut # 15.3 10*3/uL High 2.2 - 8.2 10*3/uL [facility] Work Phone: 1 22 Bands 0 % 0 - 3 % [facility] Work Phone: 1 22 Basophils 0 % 0 - 2 % [facility] Work Phone: 22 Eosinophils 0 % Low 1 - 6 % [facility] Work Phone: 1 22 Interpretation and review of laboratory results Abnormal [facility] Work Phone: 22 Lymphocytes 14 % Low 20 - 40 % [facility] Work Phone: 1 22 Monocytes 8 % 2 - 10 % [facility] Work Phone: 1 22 RBC morphology finding Nom (Bld) Normal [facility] Work Phone: 1 22 Seg Neutrophils 78 % 40 - 80 % [facility] Work Phone: 1 22 TOTAL CELLS COUNTED 100 [facility] Work Phone: [phone] Test Performed by [employer], [address] [place] [address] [facility] Work Phone: [phone] POCT Glucoseon 12-22-2020 Glucose [Mass/Vol] 239 mg/dL High 70 - 100 mg/dL [employer] Work Phone: [phone] Comment on above: Test performed by gl ucose meter. Results may be 10%-15% lower than serum/plasma values. (CLIA ID [id number]) Interpretation and review of laboratory results Abnormal [employer] Work Phone: 1 Test Performed by [employer], [facility] [place] [address] [employer] Work Phone: 1 Glucose [Mass/Vol] 276 mg/dL High 70 - 100 mg/dL [employer] Work Phone: 1 Comment on above: Test performed by gl ucose meter. Results may be 10%-15% lower than serum/plasma values. (CLIA ID [id number]) Interpretation and review of laboratory results Abnormal [employer] Work Phone: 1 Test Performed by [employer], [facility] [place] [address] [employer] Work Phone: 1 Glucose [Mass/Vol] 361 mg/dL High 70 - 100 mg/dL [employer] Work Phone: Comment on above: Test performed by gl ucose meter. Results may be 10%-15% lower than serum/plasma values. (CLIA ID [id number]) Interpretation and review of laboratory results Abnormal [employer] Work Phone: 1 Test Performed by [employer], [facility] [place] [address] [employer] Work Phone: 1 Glucose [Mass/Vol] 323 mg/dL High 70 - 100 mg/dL [employer] Work Phone: 1 Comment on above: Test performed by gl ucose meter. Results may be 10%-15% lower than serum/plasma values. (CLIA ID [id number]) Interpretation and review of laboratory results Abnormal [employer] Work Phone: 1 Test Performed by [employer], [facility] [place] [address] [employer] Work Phone: 1 Glucose [Mass/Vol] 351 mg/dL High 70 - 100 mg/dL [employer] Work Phone: 1 Comment on above: Test performed by gl ucose meter. Results may be 10%-15% lower than serum/plasma values. (CLIA ID [id number]) Interpretation and review of laboratory results Abnormal [facility] Work Phone: Test Performed by [id number] [place] [address] Work Phone: [phone] Glucose [Mass/Vol] 293 mg/dL High 70 - 100 mg/dL [employer] Work Phone: [phone] Comment on above: Test performed by ucose meter. Results may be 10%-15% lower than serum/plasma values. (CLIA ID [id number]) Interpretation and review of laboratory results Abnormal [facility] Work Phone: Test Performed by [id number] [place] [address] Work Phone: APTTon 12-21-2020 aPTT Coag (Bld) [Time] 25.8 s Normal 20.0-30.5 [facility] [employer] Comment on above: Result Comment: NOTE : The therapeutic time for Heparin anticoagulation, based on Xa activity inhibition, is an APTT of 46-80 seconds. Performed By: #### B GLU #### [employer] [address] [place] [address] aPTT Coag (Bld) [Time] 25.8 s 20.0 - 30.5 s [facility] Work Phone: Comment on above: NOTE: The therapeuti c time for Heparin anticoagulation, based on Xa activity inhibition, is an APTT of 46-80 seconds. Basic Metabolic Panelon - Calcium [Mass/Vol] 9.7 mg/dL Normal 8.4-10.4 [facility] Comment on above: Performed By: #### B GLU #### [employer] [address] [place] [address] Glucose [Mass/Vol] 311 mg/dL High 70-100 [facility] Comment on above: Performed By: #### B GLU #### [employer] [facility] [place], [place] Anion gap [Moles/Vol] 7 mmol/L Normal 3-13 [facility] Comment on above: Performed By: #### B GLU #### [facility] [address] [place], [place] CO2 [Moles/Vol] 26 mmol/L Normal 22-30 [facility] Comment on above: Performed By: #### B GLU #### [facility] [address] [place], [place] Creatinine [Mass/Vol] 0.42 mg/dL Low 0.52-1.25 [facility] Comment on above: Performed By: #### B GLU #### [facility] [address] [place], [place] eGFR OTHER > 90.0 Normal >60 [facility] Comment on above: Result Comment: KDIG O guidelines provide the following GFR categories: Stage GFR(ml/min/1.73 m2) Terms G1 >=90 Normal or high G2 60-89 Mildly decreased* G3a 45-59 Mildly to moderately decreased G3b 30-44 Moderately to severely decreased G4 15-29 Severely decreased G5 <15 Kidney failure *Relative to young adult level. In the absence of evidence of kidney damage, neither GFR category G1 nor G2 fulfill the criteria for CKD. The CKD-EPI equation is validated in individuals 18 years of age and older. Currently the best equation for estimating glomerular filtration rate (GFR) from serum creatinine in children is the Bedside Osuna equation. It is less accurate in patients with extremes of muscle mass, restriction of dietary protein, ingestion of creatine, extra-renal metabolism of creatinine, or treatment with medications that affect renal tubular creatinine secretion. Performed By: #### B GLU #### [facility] [address] [place], [place] GFR/1.73 sq M.predicted among blacks MDRD (S/P/Bld) [Vol rate/Area] mL/min/{1.73_m2} Normal >60 [facility] Comment on above: Performed By: #### B GLU #### [facility] [address] [place], [place] Urea nitrogen [Mass/Vol] 15 mg/dL Normal 7-20 [facility] Comment on above: Performed By: #### B GLU #### [facility] [address] [place] [address] Chloride [Moles/Vol] 99 mmol/L Normal 98-107 [facility] Comment on above: Performed By: #### B GLU #### [facility] [address] [place], [place] Potassium [Moles/Vol] 3.9 mmol/L Normal 3.5-5.1 [facility] Comment on above: Performed By: #### B GLU #### [facility] [address] [place], [place] Sodium [Moles/Vol] 132 mmol/L Low 135-145 [facility] Comment on above: Performed By: #### B GLU #### [facility] [address] [place], [place] Anion gap [Moles/Vol] 7 mmol/L 3 - 13 mmol/L [facility] Work Phone: Calcium [Mass/Vol] 9.7 mg/dL 8.4 - 10.4 mg/dL [facility] Work Phone: Chloride [Moles/Vol] 99 mmol/L 98 - 107 mmol/L [facility] Work Phone: CO2 [Moles/Vol] 26 mmol/L 22 - 30 mmol/L [facility] Work Phone: Creatinine [Mass/Vol] 0.42 mg/dL Low 0.52 - 1.25 mg/dL [facility] Work Phone: EGFR IF NonAfrican Brazilian >90.0 >60 mL/min [facility] Work Phone: Comment on above: KDIGO guidelines pro vide the following GFR categories: Stage GFR(ml/min/1.73 m2) Terms G1 >=90 Normal or high G2 60-89 Mildly decreased* G3a 45-59 Mildly to moderately decreased G3b 30-44 Moderately to severely decreased G4 15-29 Severely decreased G5 <15 Kidney failure *Relative to young adult level. In the absence of evidence of kidney damage, neither GFR category G1 nor G2 fulfill the criteria for CKD. The CKD-EPI equation is validated in individuals 18 years of age and older. Currently the best equation for estimating glomerular filtration rate (GFR) from serum creatinine in children is the Bedside Osuna equation. It is less accurate in patients with extremes of muscle mass, restriction of dietary protein, ingestion of creatine, extra-renal metabolism of creatinine, or treatment with medications that affect renal tubular creatinine secretion. GFR/1.73 sq M predicted among blacks MDRD (S/P/Bld) [Vol rate/Area] mL/min/{1.73_m2} >60 mL/min [facility] Work Phone: Glucose [Mass/Vol] 311 mg/dL High 70 - 100 mg/dL [employer] Work Phone: Interpretation and review of laboratory results Abnormal [facility] Work Phone: Potassium [Moles/Vol] 3.9 mmol/L 3.5 - 5.1 mmol/L [facility] Work Phone: Sodium [Moles/Vol] 132 mmol/L Low 135 - 145 mmol/L [facility] Work Phone: Urea nitrogen [Mass/Vol] 15 mg/dL 7 - 20 mg/dL [facility] Work Phone: Test Performed by [employer], [address] [place] [id number] [place] [address] Work Phone: CBCon 12-21-2020 Erythrocyte distribution width (RBC) [Ratio] 13.3 % 11.5 - 14.5 % [facility] Work Phone: Hematocrit (Bld) [Volume fraction] 45.2 % 35.0 - 47.0 % [facility] Work Phone: Hemoglobin (Bld) [Mass/Vol] 15.1 g/dL 11.7 - 16.0 g/dL [facility] Work Phone: MCH (RBC) [Entitic mass] 30.3 pg 26.0 - 34.0 pg [facility] Work Phone: MCHC (RBC) [Mass/Vol] 33.5 % 32.0 - 36.0 % [facility] Work Phone: MCV (RBC) [Entitic vol] 90.7 fL 79.0 - 98.0 fL [facility] Work Phone: [phone] Platelet mean volume (Bld) [Entitic vol] 7.7 fL 7.4 - 10.4 fL [facility] Work Phone: [phone] Platelets (Bld) [#/Vol] 332 10*3/uL 140 - 440 10*3/uL [facility] Work Phone: [phone] RBC (Bld) [#/Vol] 4.99 10*6/uL 3.80 - 5.2 0 10*6/uL [facility] Work Phone: [phone] WBC (Bld) [#/Vol] 15.7 10*3/uL High 3.6 - 10.7 10*3/uL [facility] Work Phone: [phone] CR Chest 1 View Frontalon CR Chest 1 View Frontal Patient Name: TIA BLANCO Diagnostic Radiology ACCESSION EXAM DATE/TIME PROCEDURE ORDERING PROVIDER [id number] 12/21/2020 06:06 EDT CR Chest 1 View Frontal MD ROCK ZACHARY CPT code 20677 Reason For Exam (CR Chest 1 View Frontal) pre-op Report Examination: Portable chest Indication: pre-op Findings: There is no focal consolidation, sizable pleural effusion or pneumothorax. The cardiac silhouette and mediastinum are within normal limits. Mild calcification of the aortic arch is noted. Small osteophytes of the spine are present at multiple levels. Impression: No radiographic evidence of acute cardiopulmonary process. Report Dictated on Final Dictated: 12/21/2020 8:00 am Dictating Physician: MD FLEMING KRIKOR Signed Date and Time: 12/21/2020 8:26 am Signed by: MD FLEMING KRIKOR Transcribed Date and Time: 12/21/2020 8:00 Normal [facility] CR Spine Lumbosacral 2 or 3 Viewson 12-21-2020 CR Spine Lumbosacral 2 or 3 Views Patient Name: TIA BLANCO Diagnostic Radiology ACCESSION EXAM DATE/TIME PROCEDURE ORDERING PROVIDER [id number] 12/21/2020 06:06 EDT CR Spine Lumbosacral 2 MD ROCK ZACHARY or 3 Views CPT code 77181 Reason For Exam (CR Spine Lumbosacral 2 or 3 Views) pre-surgery films Report Examination: Lumbar spine 3 views Indication: pre-surgery films Findings: The vertebral bodies are in gross anatomic alignment. No acute fracture is demonstrated. Olal-lt-lwqmgfft levocurvature is noted. There are at least moderate degenerative facet changes of the lower lumbar spine. There is at least moderate degenerative disc disease at T12/L1 and L1/L2. Ymvt-rz-honarnqi calcification of the abdominal aorta is noted. Multiple rounded surgical coils overlie the mid abdomen most suggestive of prior herniorrhaphy. Impression: No acute osseous abnormality. 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 : 1955 Requested By: SHILPI ROCK Order Number: [id number] Reading MD: Suresh Vides Measurements Intervals [place] Rate: 67 P: -40 WV: 248 QRS: 3 QRSD: 93 T: -15 QT: 428 QTc: 452 Interpretive Statements Sinus rhythm FIRST DEGREE AV BLOCK Probable left ventricular hypertrophy Nonspecific T abnormalities, anterior leads Poor R wave progression Electronically Signed On 12-21-2020 9:39:37 EDT by Suresh GODWIN Work Phone: [facility] Test Date: 2020-12-21 Pat Name: Tia Blanco Department: [facility] [place] [facility] Room: [facility] Gender: F 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 Results may be 10%-15% lower than serum/plasma values. (CLIA ID [id number]) Performed By: #### M DIFF, HEMDF #### [facility] [address] [place] [address] Glucose [Mass/Vol] 223 mg/dL [facility] [address] Comment on above: Result Comment: Test performed by glucose meter. Results may be 10%-15% lower than serum/plasma values. (CLIA ID [id number]) Performed By: #### B GLU #### [facility] [address] [place] [address] Glucose [Mass/Vol] 237 mg/dL [facility] [address] Comment on above: Result Comment: Test performed by glucose meter. Results may be 10%-15% lower than serum/plasma values. (CLIA ID [id number]) Performed By: #### B GLU #### [facility] [address] [place] [address] Glucose [Mass/Vol] 299 mg/dL High [address] [facility] Work Phone: Comment on above: Test performed by gl ucose meter. Results may be 10%-15% lower than serum/plasma values. (CLIA ID [id number]) Result Comment: Test performed by glucose meter. Results may be 10%-15% lower than serum/plasma values. (CLIA ID [id number]) Performed By: #### B GLU #### [address] Hemogramon 12-21-2020 Erythrocyte distribution width (RBC) [Ratio] 13.3 % Normal 11.5-14.5 [facility] Comment on above: Performed By: #### B GLU #### [address] [address] [place], [place] Hematocrit (Bld) [Volume fraction] 45.2 % Normal 35.0-47.0 [facility] Comment on above: Performed By: #### B GLU #### [address] [address] [place], [place] Hemoglobin (Bld) [Mass/Vol] 15.1 g/dL Normal 11.7-16.0 [facility] Comment on above: Performed By: #### B GLU #### [address] [address] [address] [place], [place] MCH (RBC) [Entitic mass] 30.3 pg Normal 26.0-34.0 [facility] Comment on above: Performed By: #### B GLU #### [address] MCHC 33.5 % Normal 32.0-36.0 [facility] Comment on above: Performed By: #### B GLU #### [address] [address] [place], [place] MCV (RBC) [Entitic vol] 90.7 fL Normal 79.0-98.0 [facility] Comment on above: Performed By: #### B GLU #### [address] Platelet mean volume (Bld) [Entitic vol] 7.7 fL Normal 7.4-10.4 [facility] Comment on above: Performed By: #### B GLU #### [address] Platelets (Bld) [#/Vol] 332 10*3/uL Normal 140-440 [facility] Comment on above: Performed By: #### B GLU #### [facility] [address] [address] [place] [address] RBC (Bld) [#/Vol] 4.99 10*6/uL Normal 3.80-5.20 [facility] Comment on above: Performed By: #### B GLU #### [facility] [address] [address] [place] [address] WBC (Bld) [#/Vol] 15.7 10*3/uL High 3.6-10.7 [facility] Comment on above: Performed By: #### B GLU #### [facility] [employer] [address] [address] [place] [address] Otheron 12-21-2020 Test Performed by [facility] [address] [place] [id number] [place] [address] Work Phone: Interpretation and review of laboratory results Abnormal [facility] Work Phone: [phone] Test Performed by [facility], [address] [place] [id number] [place] [address] Work Phone: [phone] POCT Glucoseon 12-21-2020 Glucose [Mass/Vol] 298 mg/dL High 70 - 100 mg/dL [employer] Work Phone: Comment on above: Test performed by gl ucose meter. Results may be 10%-15% lower than serum/plasma values. (CLIA ID [id number]) Interpretation and review of laboratory results Abnormal [facility] Work Phone: [phone] Test Performed by [employer], [address] [place] [address] [facility] Work Phone: [phone] Glucose [Mass/Vol] 223 mg/dL High 70 - 100 mg/dL [employer] Work Phone: Comment on above: Test performed by gl ucose meter. Results may be 10%-15% lower than serum/plasma values. (CLIA ID [id number]) Interpretation and review of laboratory results Abnormal [facility] Work Phone: [phone] Test Performed by [employer], [address] [place] [address] [facility] Work Phone: Glucose [Mass/Vol] 237 mg/dL High 70 - 100 mg/dL [employer] Work Phone: [phone] Comment on above: Test performed by [employer] ucose meter. Results may be 10%-15% lower than serum/plasma values. (CLIA ID [id number]) Interpretation and review of laboratory results Abnormal [facility] Work Phone: [phone] Test Performed by [facility] [employer] [facility], [address] [place] [address] [facility] Work Phone: Prothrombin Timeon INR 1.0 Normal 0.9-1.1 [facility] Comment on above: Result Comment: Dain mmended Anticoagulant Therapy: SEE BELOW ----- INR of 2.0 - 3.0 : - Prophylaxis of Venous Thrombosis (high-risk surgery) - Treatment of Venous Thrombosis - Treatment of Pulmonary Embolism (Includes tissue heart valves, Acute Myocardial Infarction to prevent systemic embolism, Valvular Heart Disease, and Atrial Fibrillation) ----- INR of 2.5 - 3.5 : - Mechanical Prosthetic Valves (high risk) - If oral anticoagulant therapy is used to prevent Myocardial Infarction Performed By: #### B GLU #### [address] [address] PT Coag (PPP) [Time] 10.6 s Normal 9.0-12.0 [facility] Comment on above: Result Comment: . Performed By: #### B GLU #### [address] [address] Protime-INRon 12-21-2020 INR Coag (PPP) [Relative time] 1.0 {INR} [facility] Work Phone: Comment on above: Recommended Anticoag ulant Therapy: SEE BELOW ----- INR of 2.0 - 3.0 : - Prophylaxis of Venous Thrombosis (high-risk surgery) - Treatment of Venous Thrombosis - Treatment of Pulmonary Embolism (Includes tissue heart valves, Acute Myocardial Infarction to prevent systemic embolism, Valvular Heart Disease, and Atrial Fibrillation) ----- INR of 2.5 - 3.5 : - Mechanical Prosthetic Valves (high risk) - If oral anticoagulant therapy is used to prevent Myocardial Infarction PT Coag (PPP) [Time] 10.6 s 9.0 - 12.0 s [employer] Work Phone: Comment on above: . TS GELon 12-21-2020 TS GEL ABO Group: A Rh, Gel: POS Antibody Screen Gel: NEG Normal [facility] Comment on above: Performed By: #### B GLU #### [employer] [address] [place] [phone] TYPE AND SCREENon 12-21-2020 Sodium [Moles/Vol] Positive [employer] Work Phone: Sodium [Moles/Vol] A [facility] Work Phone: Sodium [Moles/Vol] Negative [facility] Work Phone: Test Performed by [employer], [address] [place] [id number] [facility] Work Phone: XR CHEST 1 VWon 12-21-2020 Patient Name: TIA BLANCO Diagnostic Radiology ACCESSION EXAM DATE/TIME PROCEDURE ORDERING PROVIDER [id number] 12/21/2020 06:06 EDT CR Chest 1 View Frontal MD ROCK ZACHARY CPT code 54818 Reason For Exam (CR Chest 1 View Frontal) pre-op Report Examination: Portable chest Indication: pre-op Findings: There is no focal consolidation, sizable pleural effusion or pneumothorax. The cardiac silhouette and mediastinum are within normal limits. Mild calcification of the aortic arch is noted. Small osteophytes of the spine are present at multiple levels. Impression: No radiographic evidence of acute cardiopulmonary process. Report Dictated on --- Final --- Dictated: 12/21/2020 8:00 am Dictating Physician: MD FLEMING KRIKOR Signed Date and Time: 12/21/2020 8:26 am Signed by: MD FLEMING KRIKOR Transcribed Date and Time: 12/21/2020 8:00 [facility] Work Phone: Karthik, [facility] Incoming Radiology Results From [facility] - 12/21/2020 8:27 AM EDT Patient Name: TIA BLANCO Diagnostic Radiology ACCESSION EXAM DATE/TIME PROCEDURE ORDERING PROVIDER [id number] 12/21/2020 06:06 EDT CR Chest 1 View Frontal MD ROCK ZACHARY CPT code 07328 Reason For Exam (CR Chest 1 View Frontal) pre-op Report Examination: Portable chest Indication: pre-op Findings: There is no focal consolidation, sizable pleural effusion or pneumothorax. The cardiac silhouette and mediastinum are within normal limits. Mild calcification of the aortic arch is noted. Small osteophytes of the spine are present at multiple levels. Impression: No radiographic evidence of acute cardiopulmonary process. Report Dictated on --- Final --- Dictated: 12/21/2020 8:00 am Dictating Physician: MD FLEMING KRIKOR Signed Date and Time: 12/21/2020 8:26 am Signed by: MD FLEMING KRIKOR Transcribed Date and Time: 12/21/2020 8:00 [facility] Work Phone: XR LUMBAR SPINE (2-3 VIEWS)o n 12-21-2020 Karthik, [facility] Incoming Radiology Results From [facility] - 12/21/2020 8:34 AM EDT Patient Name: TIA BLANCO Diagnostic Radiology ACCESSION EXAM DATE/TIME PROCEDURE ORDERING PROVIDER [id number] 12/21/2020 06:06 EDT CR Spine Lumbosacral 2 MD ROCK ZACHARY or 3 Views CPT code 51019 Reason For Exam (CR Spine Lumbosacral 2 or 3 Views) pre-surgery films Report Examination: Lumbar spine 3 views Indication: pre-surgery films Findings: The vertebral bodies are in gross anatomic alignment. No acute fracture is demonstrated. Qzbo-gg-cidmyomt levocurvature is noted. There are at least moderate degenerative facet changes of the lower lumbar spine. There is at least moderate degenerative disc disease at T12/L1 and L1/L2. Ztye-fm-zemvpjqo calcification of the abdominal aorta is noted. Multiple rounded surgical coils overlie the mid abdomen most suggestive of prior herniorrhaphy. Impression: No acute osseous abnormality. Report Dictated on --- Final --- Dictated: 12/21/2020 8:31 am Dictating Physician: MD FLEMING KRIKOR Signed Date and Time: 12/21/2020 8:33 am Signed by: MD FLEMING KRIKOR Transcribed Date and Time: 12/21/2020 8:31 [facility] Work Phone: Patient Name: TIA BLANCO Diagnostic Radiology ACCESSION EXAM DATE/TIME PROCEDURE ORDERING PROVIDER [id number] 12/21/2020 06:06 EDT CR Spine Lumbosacral 2 MD ROCK ZACHARY or 3 Views CPT code 29977 Reason For Exam (CR Spine Lumbosacral 2 or 3 Views) pre-surgery films Report Examination: Lumbar spine 3 views Indication: pre-surgery films Findings: The vertebral bodies are in gross anatomic alignment. No acute fracture is demonstrated. Ypbj-pr-htzjiljp levocurvature is noted. There are at least moderate degenerative facet changes of the lower lumbar spine. There is at least moderate degenerative disc disease at T12/L1 and L1/L2. Ruxq-qk-uiffixrr calcification of the abdominal aorta is noted. Multiple rounded surgical coils overlie the mid abdomen most suggestive of prior herniorrhaphy. Impression: No acute osseous abnormality. Report Dictated on --- Final --- Dictated: 12/21/2020 8:31 am Dictating Physician: MD FLEMING KRIKOR Signed Date and Time: 12/21/2020 8:33 am Signed by: MD FLEMING KRIKOR Transcribed Date and Time: 12/21/2020 8:31 [facility] Work Phone: Vital Signs Date Time Vital Sign Value Performing Clinician Facility 06-14-2024 14:18-0400 Body mass index (BMI) [Ratio] 33.58 kg/m2 Preet Gonzalezon DO Work Phone: [facility] 06-14-2024 14:18-0400 Body temperature 98.01 [degF] Preet Farrar DO Work Phone: [facility] 06-14-2024 14:18-0400 Body weight 78 kg Preet Farrar DO Work Phone: [facility] 06-14-2024 14:18-0400 Diastolic blood pressure 70 mm[Hg] Preet Farrar DO Work Phone: [facility] 06-14-2024 14:18-0400 Heart rate 76 /min Preet Farrar DO Work Phone: [facility] 06-14-2024 14:18-0400 Respiratory rate 16 /min Preet Farrar DO Work Phone: [facility] 06-14-2024 14:18-0400 Systolic blood pressure 136 mm[Hg] Preet Farrar DO Work Phone: [facility] 05-25-2024 14:32-0400 Body mass index (BMI) [Ratio] 32.89 kg/m2 Catalina Podlogar INFRASTRUCTURE DESIGN ENGINEER.TECHNICAL COMMUNICATOR Work Phone: [facility] 05-25-2024 14:32-0400 Body weight 76.4 kg Catalina Podlogar INFRASTRUCTURE DESIGN ENGINEER.TECHNICAL COMMUNICATOR Work Phone: [facility] 05-25-2024 14:32-0400 Diastolic blood pressure 72 mm[Hg] Catalina Podlogar INFRASTRUCTURE DESIGN ENGINEER.TECHNICAL COMMUNICATOR Work Phone: [facility] 05-25-2024 14:32-0400 Heart rate 80 /min Catalina Podlogar INFRASTRUCTURE DESIGN ENGINEER.TECHNICAL COMMUNICATOR Work Phone: [facility] 05-25-2024 14:32-0400 Respiratory rate 18 /min Catalina Podlogar INFRASTRUCTURE DESIGN ENGINEER.TECHNICAL COMMUNICATOR Work Phone: [facility] 05-25-2024 14:32-0400 SaO2% (BldA) [Mass fraction] 93 % Catalina Podlogar INFRASTRUCTURE DESIGN ENGINEER.TECHNICAL COMMUNICATOR Work Phone: [facility] 05-25-2024 14:32-0400 Systolic blood pressure 106 mm[Hg] Catalina Young APRN.CNP Work Phone: [facility] 05-10-2024 13:29-0400 Body height 152.4 cm Bean Isaac MD Work Phone: [facility] 05-10-2024 13:29-0400 Body mass index (BMI) [Ratio] 33.55 kg/m2 Bean Isaac MD Work Phone: [facility] 05-10-2024 13:29-0400 Body weight 77.93 kg Bean Isaac MD Work Phone: [facility] 05-10-2024 13:29-0400 Diastolic blood pressure 78 mm[Hg] Bean Isaac MD Work Phone: [facility] 05-10-2024 13:29-0400 Heart rate 76 /min Bean Isaac MD Work Phone: [facility] 05-10-2024 13:29-0400 Respiratory rate 18 /min Bean Isaac MD Work Phone: [facility] 05-10-2024 13:29-0400 SaO2% (BldA) [Mass fraction] 97 % Bean Isaac MD Work Phone: [facility] 05-10-2024 13:29-0400 Systolic blood pressure 138 mm[Hg] Bean Isaac MD Work Phone: [facility] 03-21-2024 10:23-0400 Body mass index (BMI) [Ratio] 31.83 kg/m2 Preet Trujillorison DO Work Phone: [facility] 03-21-2024 10:23-0400 Body temperature 96.69 [degF] Preet Trujillorison DO Work Phone: [facility] 03-21-2024 10:23-0400 Body weight 73.94 kg Preet Trujillorison DO Work Phone: [facility] 03-21-2024 10:23-0400 Diastolic blood pressure 80 mm[Hg] Preet Farrar DO Work Phone: [facility] 03-21-2024 10:23-0400 Heart rate 64 /min Preet Farrar DO Work Phone: [facility] 03-21-2024 10:23-0400 Respiratory rate 16 /min Preet Farrar DO Work Phone: [facility] 03-21-2024 10:23-0400 Systolic blood pressure 136 mm[Hg] Preet Farrar DO Work Phone: [facility] 01-27-2024 10:55-0400 Body mass index (BMI) [Ratio] 32.15 kg/m2 Jacqueline Candelario INFRASTRUCTURE DESIGN ENGINEER.TECHNICAL COMMUNICATOR Work Phone: [facility] 01-27-2024 10:55-0400 Body weight 74.67 kg Jacqueline Candelario INFRASTRUCTURE DESIGN ENGINEER.TECHNICAL COMMUNICATOR Work Phone: [facility] 01-27-2024 10:55-0400 Diastolic blood pressure 68 mm[Hg] Jacqueline Candelario INFRASTRUCTURE DESIGN ENGINEER.TECHNICAL COMMUNICATOR Work Phone: [facility] 01-27-2024 10:55-0400 Heart rate 64 /min Jacqueline Candelario INFRASTRUCTURE DESIGN ENGINEER.TECHNICAL COMMUNICATOR Work Phone: [facility] 01-27-2024 10:55-0400 Respiratory rate 16 /min Jacqueline Candelario INFRASTRUCTURE DESIGN ENGINEER.TECHNICAL COMMUNICATOR Work Phone: [facility] 01-27-2024 10:55-0400 Systolic blood pressure 124 mm[Hg] Jacqueline Candelario INFRASTRUCTURE DESIGN ENGINEER.TECHNICAL COMMUNICATOR Work Phone: [facility] 01-06-2024 11:06-0400 Body weight 74.39 kg Jacqueline Candelario INFRASTRUCTURE DESIGN ENGINEER.TECHNICAL COMMUNICATOR Work Phone: [facility] 01-06-2024 11:06-0400 Diastolic blood pressure 64 mm[Hg] Jacqueline Candelario INFRASTRUCTURE DESIGN ENGINEER.TECHNICAL COMMUNICATOR Work Phone: [facility] 01-06-2024 11:06-0400 Heart rate 62 /min Jacqueline Candelario INFRASTRUCTURE DESIGN ENGINEER.TECHNICAL COMMUNICATOR Work Phone: [facility] 01-06-2024 11:06-0400 Respiratory rate 16 /min Jacqueline Candelario INFRASTRUCTURE DESIGN ENGINEER.TECHNICAL COMMUNICATOR Work Phone: [facility] 01-06-2024 11:06-0400 Systolic blood pressure 130 mm[Hg] Jacqueline Candelario INFRASTRUCTURE DESIGN ENGINEER.TECHNICAL COMMUNICATOR Work Phone: [facility] 01-02-2024 12:34-0400 Body temperature 97.39 [degF] Jemima Hernández INFRASTRUCTURE DESIGN ENGINEER.TECHNICAL COMMUNICATOR Work Phone: [facility] 01-02-2024 12:34-0400 Body weight 74.1 kg Jemima Hernández INFRASTRUCTURE DESIGN ENGINEER.TECHNICAL COMMUNICATOR Work Phone: [facility] 01-02-2024 12:34-0400 Diastolic blood pressure 82 mm[Hg] Jemima Hernández INFRASTRUCTURE DESIGN ENGINEER.TECHNICAL COMMUNICATOR Work Phone: [facility] 01-02-2024 12:34-0400 Heart rate 80 /min Jemima Hernández INFRASTRUCTURE DESIGN ENGINEER.TECHNICAL COMMUNICATOR Work Phone: [facility] 01-02-2024 12:34-0400 Respiratory rate 16 /min Jemima Hernández INFRASTRUCTURE DESIGN ENGINEER.TECHNICAL COMMUNICATOR Work Phone: [facility] 01-02-2024 12:34-0400 SaO2% (BldA) [Mass fraction] 98 % Jemima Hernández INFRASTRUCTURE DESIGN ENGINEER.TECHNICAL COMMUNICATOR Work Phone: [facility] 01-02-2024 12:34-0400 Systolic blood pressure 132 mm[Hg] Jemima Hernández INFRASTRUCTURE DESIGN ENGINEER.TECHNICAL COMMUNICATOR Work Phone: [facility] 12-09-2023 17:34-0400 Body temperature 97.39 [degF] Preet Farrar DO Work Phone: [facility] 12-09-2023 17:34-0400 Body weight 74.39 kg Preet Farrar DO Work Phone: [facility] 12-09-2023 17:34-0400 Diastolic blood pressure 80 mm[Hg] Preet Farrar DO Work Phone: [facility] 12-09-2023 17:34-0400 Heart rate 80 /min Preet Farrar DO Work Phone: [facility] 12-09-2023 17:34-0400 Respiratory rate 12 /min Preet Farrar DO Work Phone: [facility] 12-09-2023 17:34-0400 Systolic blood pressure 130 mm[Hg] Preet Farrar DO Work Phone: [facility] 11-25-2023 02:49-0500 Blood Pressure Cuff Size ELOISA LEVIN MD [facility] 11-25-2023 02:49-0500 Blood Pressure Location ELOISA LEVIN MD [address] [place] [address] 11-25-2023 02:49-0500 Blood Pressure Method ELOISA LEVIN MD [facility] 11-25-2023 02:49-0500 Diastolic Blood Pressure Non-Invasive 80 mm[Hg] ELOISA LEVIN MD [facility] 11-25-2023 02:49-0500 Systolic Blood Pressure Non-Invasive 164 mm[Hg] ELOISA LEVIN MD [facility] 11-25-2023 00:35-0500 Diastolic Blood Pressure Non-Invasive 83 mm[Hg] ELOISA LEVIN MD [facility] 11-25-2023 00:35-0500 Heart rate 79 /min ELOISA LEVIN MD [facility] 11-25-2023 00:35-0500 Respiratory rate 18 /min ELOISA LEVIN MD [facility] 11-25-2023 00:35-0500 Systolic Blood Pressure Non-Invasive 177 mm[Hg] ELOISA LEVIN MD [facility] 11-24-2023 22:22-0500 Diastolic Blood Pressure Non-Invasive 81 mm[Hg] ELOISA LEVIN MD [facility] 11-24-2023 22:22-0500 Heart rate 72 /min ELOISA LEVIN MD [facility] 11-24-2023 22:22-0500 Respiratory rate 20 /min ELOISA LEVIN MD [facility] 11-24-2023 22:22-0500 Systolic Blood Pressure Non-Invasive 147 mm[Hg] ELOISA LEVIN MD [facility] 11-24-2023 18:48-0500 Body temperature 98.06 [degF] ELOISA LEVIN MD [facility] 11-24-2023 18:48-0500 Body weight 76.7 kg ELOISA LEVIN MD [facility] 11-24-2023 18:48-0500 Heart rate 80 /min ELOISA LEVIN MD [facility] 11-24-2023 18:48-0500 Respiratory rate 20 /min ELOISA LEVIN MD [facility] 11-19-2023 09:24-0500 Body weight 76.2 kg Jacqueline Candelario INFRASTRUCTURE DESIGN ENGINEER.TECHNICAL COMMUNICATOR Work Phone: [facility] 11-19-2023 09:24-0500 Diastolic blood pressure 60 mm[Hg] Jacqueline Candelario INFRASTRUCTURE DESIGN ENGINEER.TECHNICAL COMMUNICATOR Work Phone: [facility] 11-19-2023 09:24-0500 Heart rate 64 /min Jacqueline Candelario INFRASTRUCTURE DESIGN ENGINEER.TECHNICAL COMMUNICATOR Work Phone: [facility] 11-19-2023 09:24-0500 Respiratory rate 12 /min Jacqueline Candelario INFRASTRUCTURE DESIGN ENGINEER.TECHNICAL COMMUNICATOR Work Phone: [facility] 11-19-2023 09:24-0500 Systolic blood pressure 100 mm[Hg] Jacqueline Candelario INFRASTRUCTURE DESIGN ENGINEER.TECHNICAL COMMUNICATOR Work Phone: [facility] 11-13-2023 08:57-0500 Body weight 76.2 kg Jacqueline Candelario INFRASTRUCTURE DESIGN ENGINEER.TECHNICAL COMMUNICATOR Work Phone: [facility] 11-13-2023 08:57-0500 Diastolic blood pressure 70 mm[Hg] Jacqueline Candelario INFRASTRUCTURE DESIGN ENGINEER.TECHNICAL COMMUNICATOR Work Phone: [facility] 11-13-2023 08:57-0500 Heart rate 64 /min Jacqueline Candelario INFRASTRUCTURE DESIGN ENGINEER.TECHNICAL COMMUNICATOR Work Phone: [facility] 11-13-2023 08:57-0500 Respiratory rate 16 /min Jacqueline Candelario INFRASTRUCTURE DESIGN ENGINEER.TECHNICAL COMMUNICATOR Work Phone: [facility] 11-13-2023 08:57-0500 Systolic blood pressure 160 mm[Hg] Jacqueline Candelario INFRASTRUCTURE DESIGN ENGINEER.TECHNICAL COMMUNICATOR Work Phone: [facility] 10-29-2023 09:13-0500 Body weight 75.75 kg Jacqueline Candelario INFRASTRUCTURE DESIGN ENGINEER.TECHNICAL COMMUNICATOR Work Phone: [facility] 10-29-2023 09:13-0500 Diastolic blood pressure 62 mm[Hg] Jacqueline Acndelario INFRASTRUCTURE DESIGN ENGINEER.TECHNICAL COMMUNICATOR Work Phone: [facility] 10-29-2023 09:13-0500 Heart rate 64 /min Jacqueline Candelario INFRASTRUCTURE DESIGN ENGINEER.TECHNICAL COMMUNICATOR Work Phone: [facility] 10-29-2023 09:13-0500 Respiratory rate 14 /min Jacqueline Candelario INFRASTRUCTURE DESIGN ENGINEER.TECHNICAL COMMUNICATOR Work Phone: [facility] 10-29-2023 09:13-0500 Systolic blood pressure 150 mm[Hg] Jacqueline Candelario INFRASTRUCTURE DESIGN ENGINEER.TECHNICAL COMMUNICATOR Work Phone: [facility] 07-15-2023 10:01-0400 Body weight 72.85 kg Leah Mat INFRASTRUCTURE DESIGN ENGINEER.TECHNICAL COMMUNICATOR Work Phone: [facility] 07-15-2023 10:01-0400 Diastolic blood pressure 74 mm[Hg] Leah Mat INFRASTRUCTURE DESIGN ENGINEER.TECHNICAL COMMUNICATOR Work Phone: [facility] 07-15-2023 10:01-0400 Heart rate 84 /min Leah Mat INFRASTRUCTURE DESIGN ENGINEER.TECHNICAL COMMUNICATOR Work Phone: [facility] 07-15-2023 10:01-0400 Respiratory rate 16 /min Leah Mat INFRASTRUCTURE DESIGN ENGINEER.TECHNICAL COMMUNICATOR Work Phone: [facility] 07-15-2023 10:01-0400 SaO2% (BldA) [Mass fraction] 98 % Leah Mat INFRASTRUCTURE DESIGN ENGINEER.TECHNICAL COMMUNICATOR Work Phone: [facility] 07-15-2023 10:01-0400 Systolic blood pressure 126 mm[Hg] Leah Mat INFRASTRUCTURE DESIGN ENGINEER.TECHNICAL COMMUNICATOR Work Phone: [facility] 06-26-2023 09:04-0400 Body weight 71.31 kg Jacqueline Candelario INFRASTRUCTURE DESIGN ENGINEER.TECHNICAL COMMUNICATOR Work Phone: [facility] 06-26-2023 09:04-0400 Diastolic blood pressure 60 mm[Hg] Jacqueline Candelario INFRASTRUCTURE DESIGN ENGINEER.TECHNICAL COMMUNICATOR Work Phone: [facility] 06-26-2023 09:04-0400 Heart rate 100 /min Jacqueline Candelario INFRASTRUCTURE DESIGN ENGINEER.TECHNICAL COMMUNICATOR Work Phone: [facility] 06-26-2023 09:04-0400 Respiratory rate 14 /min Jacqueline Candelario INFRASTRUCTURE DESIGN ENGINEER.TECHNICAL COMMUNICATOR Work Phone: [facility] 06-26-2023 09:04-0400 Systolic blood pressure 122 mm[Hg] Jacqueline Candelario INFRASTRUCTURE DESIGN ENGINEER.TECHNICAL COMMUNICATOR Work Phone: [facility] 06-19-2023 10:41-0400 Body weight 74.39 kg Leah Mat INFRASTRUCTURE DESIGN ENGINEER.TECHNICAL COMMUNICATOR Work Phone: [facility] 06-19-2023 10:41-0400 Diastolic blood pressure 68 mm[Hg] Leah Mat INFRASTRUCTURE DESIGN ENGINEER.TECHNICAL COMMUNICATOR Work Phone: [facility] 06-19-2023 10:41-0400 Heart rate 73 /min Leah Mat INFRASTRUCTURE DESIGN ENGINEER.TECHNICAL COMMUNICATOR Work Phone: [facility] 06-19-2023 10:41-0400 Respiratory rate 16 /min Leah Mat INFRASTRUCTURE DESIGN ENGINEER.TECHNICAL COMMUNICATOR Work Phone: [facility] 06-19-2023 10:41-0400 SaO2% (BldA) [Mass fraction] 97 % Leah Mat INFRASTRUCTURE DESIGN ENGINEER.TECHNICAL COMMUNICATOR Work Phone: [facility] 06-19-2023 10:41-0400 Systolic blood pressure 118 mm[Hg] Leah Mat INFRASTRUCTURE DESIGN ENGINEER.TECHNICAL COMMUNICATOR Work Phone: [facility] 04-30-2023 08:37-0400 Body weight 75.03 kg Jacqueline Candelario INFRASTRUCTURE DESIGN ENGINEER.TECHNICAL COMMUNICATOR Work Phone: [facility] 04-30-2023 08:37-0400 Diastolic blood pressure 82 mm[Hg] Jacqueline Candelario INFRASTRUCTURE DESIGN ENGINEER.TECHNICAL COMMUNICATOR Work Phone: [facility] 04-30-2023 08:37-0400 Heart rate 60 /min Jacqueline Candelario INFRASTRUCTURE DESIGN ENGINEER.TECHNICAL COMMUNICATOR Work Phone: [facility] 04-30-2023 08:37-0400 Respiratory rate 16 /min Jacqueline Candelario INFRASTRUCTURE DESIGN ENGINEER.TECHNICAL COMMUNICATOR Work Phone: [facility] 04-30-2023 08:37-0400 Systolic blood pressure 132 mm[Hg] Jacqueline Candelario INFRASTRUCTURE DESIGN ENGINEER.TECHNICAL COMMUNICATOR Work Phone: [facility] 03-18-2023 10:27-0400 Body temperature 97.5 [degF] Preet Farrar DO Work Phone: [facility] 03-18-2023 10:27-0400 Body weight 76.66 kg Preet Farrar DO Work Phone: [facility] 03-18-2023 10:27-0400 Diastolic blood pressure 80 mm[Hg] Preet Farrar DO Work Phone: [facility] 03-18-2023 10:27-0400 Heart rate 80 /min Preet Farrar DO Work Phone: [facility] 03-18-2023 10:27-0400 Respiratory rate 16 /min Preet Farrar DO Work Phone: [facility] 03-18-2023 10:27-0400 Systolic blood pressure 130 mm[Hg] Preet Farrar DO Work Phone: [facility] 12-10-2022 09:04-0400 Body temperature 97 [degF] Preet Farrar DO Work Phone: [facility] 12-10-2022 09:04-0400 Body weight 79.83 kg Preet Farrar DO Work Phone: [facility] 12-10-2022 09:04-0400 Diastolic blood pressure 80 mm[Hg] Preet Farrar DO Work Phone: [facility] 12-10-2022 09:04-0400 Heart rate 68 /min Preet Farrar DO Work Phone: [facility] 12-10-2022 09:04-0400 Respiratory rate 16 /min Preet Farrar DO Work Phone: [facility] 12-10-2022 09:04-0400 Systolic blood pressure 138 mm[Hg] Preet Farrar DO Work Phone: [facility] 11-05-2022 11:17-0500 Body weight 79.56 kg Jacqueline Candelario INFRASTRUCTURE DESIGN ENGINEER.TECHNICAL COMMUNICATOR Work Phone: [facility] 11-05-2022 11:17-0500 Diastolic blood pressure 62 mm[Hg] Jacqueline Candelario INFRASTRUCTURE DESIGN ENGINEER.TECHNICAL COMMUNICATOR Work Phone: [facility] 11-05-2022 11:17-0500 Heart rate 72 /min Jacqueline Candelario INFRASTRUCTURE DESIGN ENGINEER.TECHNICAL COMMUNICATOR Work Phone: [facility] 11-05-2022 11:17-0500 Respiratory rate 16 /min Jacqueline Candelario INFRASTRUCTURE DESIGN ENGINEER.TECHNICAL COMMUNICATOR Work Phone: [facility] 11-05-2022 11:17-0500 Systolic blood pressure 110 mm[Hg] Jacqueline Candelario INFRASTRUCTURE DESIGN ENGINEER.TECHNICAL COMMUNICATOR Work Phone: [facility] 02-19-2022 11:46-0400 Diastolic blood pressure 80 mm[Hg] Preet Farrar DO Work Phone: [facility] 02-19-2022 11:46-0400 Systolic blood pressure 160 mm[Hg] Preet Farrar DO Work Phone: [facility] 02-19-2022 11:20-0400 Body temperature 97.39 [degF] Preet Farrar DO Work Phone: [facility] 02-19-2022 11:20-0400 Heart rate 64 /min Preet Farrar DO Work Phone: [facility] 02-19-2022 11:20-0400 Respiratory rate 16 /min Preet Farrar DO Work Phone: [facility] 01-31-2022 11:15-0400 Diastolic blood pressure 84 mm[Hg] Leah Mat INFRASTRUCTURE DESIGN ENGINEER.TECHNICAL COMMUNICATOR Work Phone: [facility] 01-31-2022 11:15-0400 Heart rate 66 /min Leah Mat INFRASTRUCTURE DESIGN ENGINEER.TECHNICAL COMMUNICATOR Work Phone: [facility] 01-31-2022 11:15-0400 Respiratory rate 16 /min Leah Mat INFRASTRUCTURE DESIGN ENGINEER.TECHNICAL COMMUNICATOR Work Phone: [facility] 01-31-2022 11:15-0400 Systolic blood pressure 156 mm[Hg] Leah Mat INFRASTRUCTURE DESIGN ENGINEER.TECHNICAL COMMUNICATOR Work Phone: [facility] 01-23-2022 16:37-0400 Body temperature 97.9 [degF] Nataly Ryan INFRASTRUCTURE DESIGN ENGINEER.TECHNICAL COMMUNICATOR Work Phone: [facility] 01-23-2022 16:37-0400 Diastolic blood pressure 96 mm[Hg] Nataly Ryan INFRASTRUCTURE DESIGN ENGINEER.TECHNICAL COMMUNICATOR Work Phone: [facility] 01-23-2022 16:37-0400 Heart rate 79 /min Nataly Ryan INFRASTRUCTURE DESIGN ENGINEER.TECHNICAL COMMUNICATOR Work Phone: [facility] 01-23-2022 16:37-0400 Respiratory rate 18 /min Nataly Ryan APRN.TECHNICAL COMMUNICATOR Work Phone: [facility] 01-23-2022 16:37-0400 SaO2% (BldA) [Mass fraction] 98 % Nataly Ryan APRN.TECHNICAL COMMUNICATOR Work Phone: [facility] 01-23-2022 16:37-0400 Systolic blood pressure 182 mm[Hg] Nataly Ryan APRN.TECHNICAL COMMUNICATOR Work Phone: [facility] 12-28-2020 10:47-0400 Body Temperature 96.69 [degF] d Almos[facility] Work Phone: 12-28-2020 10:47-0400 BP Diastolic 73 mm[Hg] Mhd Almoselli [facility] Work Phone: 12-28-2020 10:47-0400 BP Systolic 124 mm[Hg] d Almoselli [facility] Work Phone: 12-28-2020 10:47-0400 Pulse (Heart Rate) 89 /min d Almoselli [facility] Work Phone: 12-28-2020 10:47-0400 Pulse Oximetry 97 % d Al[facility] Work Phone: 12-28-2020 10:47-0400 Respiratory Rate 18 /min d Al[facility] Work Phone: 12-21-2020 04:30-0400 BMI (Body Mass Index) 35.15 kg/m2 d Al[facility] Work Phone: 12-21-2020 04:30-0400 Body weight 81.65 kg d Almos[facility] Work Phone: 12-21-2020 04:30-0400 Height 152.4 cm Mhd Al[facility] Work Phone: Encounters Encounter Date Encounter Type Care Provider Facility Start: 07-20-2024 End: 07-21-2024 Telephone encounter Preet Farrar DO Work Phone: [facility] Start: 07-19-2024 End: 07-25-2024 Telephone encounter Preet Trujillorison DO Work Phone: [facility] Comment on above: Faxed Labs; Surgical Clearance Forms Start: 07-15-2024 End: 07-25-2024 Telephone encounter Preet Trujillorison DO Work Phone: [facility] Comment on above: Results Start: 07-15-2024 End: 07-15-2024 ambulatory PREET L FARRAR Facility:[facility] Start: 06-17-2024 End: 06-17-2024 Refill Preet Keshia TrujilloFarrar DO Work Phone: [facility] Comment on above: Refill Request Start: 06-15-2024 End: 06-15-2024 Refill Preet Trujillorison DO Work Phone: [facility] Comment on above: Refill Request Start: 06-14-2024 End: 06-14-2024 ambulatory PREET L FARRAR Facility:[facility] Start: 06-14-2024 End: 06-14-2024 Patient encounter procedure Preet Trujillorison DO Work Phone: [facility] Comment on above: Uncontrolled type 2 diabetes mellitus with hyperglycemia (HCC) (Primary Dx); Acquired hypothyroidism; Essential hypertension, benign; Vitamin B12 deficiency; Hyperlipidemia, mixed; Tobacco use disorder; Vitamin D deficiency Start: 05-25-2024 End: 05-25-2024 Patient encounter procedure Catalina Podlogrodríguez INFRASTRUCTURE DESIGN ENGINEER.TECHNICAL COMMUNICATOR Work Phone: [facility] Comment on above: Thickened endometriu m (Primary Dx); LLQ pain Start: 05-25-2024 End: 05-25-2024 ambulatory CATALINA PODLOGAR Facility:[facility] Start: 05-23-2024 End: 05-23-2024 Telephone encounter Preet Trujillorison DO Work Phone: [facility] Comment on above: Future Appointment Refill Request Start: 05-17-2024 End: 05-17-2024 ambulatory PREET L FARRAR Facility:[facility] Start: 05-17-2024 Encounter for kwame l adult medical examination without abnormal findings JACQUELINEGINI CANDELARIO [facility] Start: 05-10-2024 End: 05-10-2024 ambulatory BEAN ISAAC Facility:[facility] Start: 05-10-2024 End: 05-10-2024 Patient encounter procedure Bean Isaac MD Work Phone: Endocrinology Comment on above: Type 2 diabetes belinda itus with other circulatory complication, with long-term current use of insulin (HCC) (Primary Dx) Start: 05-03-2024 End: 05-03-2024 ambulatory PREET Schmitt FARRAR Facility:[facility] Start: 04-12-2024 Telephone encounter Preet Walker janfannie DO Work Phone: [facility] [place] Comment on above: Patient Update (Bloo d Sugar Readings) Start: 03-22-2024 Telephone encounter Preet Schmitt Joaquim rojas DO Work Phone: [facility] [place] Comment on above: Insulin [place] Start: 03-21-2024 End: 03-21-2024 ambulatory PREET Schmitt FARRAR Facility:[facility] Start: 03-21-2024 End: 03-21-2024 Patient encounter procedure Preet Farrar DO Work Phone: [facility] [place] Comment on above: Gastroenteritis (Marleen darline Dx); Uncontrolled type 2 diabetes mellitus with hyperglycemia (HCC); Acquired hypothyroidism; Obesity, Class I, BMI 30-34.9; Acute dehydration; Situational anxiety Start: 03-10-2024 Patient Outreach Preet greco DO Work Phone: [facility] [place] Comment on above: Transition Of Care Start: 02-29-2024 Refill Preet franks DO Work Phone: [facility] [place] Comment on above: Refill Request Start: 02-15-2024 Telephone encounter Jacqueline franks INFRASTRUCTURE DESIGN ENGINEER.TECHNICAL COMMUNICATOR Work Phone: [facility] [place] Comment on above: Blood Sugar Readings Start: 02-03-2024 ambulatory Preet franks DO Work Phone: [facility] [place] Start: 02-02-2024 Refill Preet franks DO Work Phone: [facility] Comment on above: Refill Request Start: 01-27-2024 End: 01-27-2024 ambulatory JACQUELINE CANDELARIO Facility:[facility] Start: 01-27-2024 End: 01-27-2024 Patient encounter procedure Jacqueline Candelario INFRASTRUCTURE DESIGN ENGINEER.TECHNICAL COMMUNICATOR Work Phone: [facility] [place] Comment on above: Uncontrolled type 2 diabetes mellitus with hyperglycemia (HCC) (Primary Dx); Vaginal yeast infection; Poor sleep Start: 01-12-2024 Telephone encounter Preet rojas DO Work Phone: [facility] [place] Comment on above: Medication Problem; yeast infection again Start: 01-06-2024 End: 01-06-2024 Refill Preet Keshia Gonzalezon DO Work Phone: [facility] [place] Comment on above: Refill Request Uncontrolled type 2 diabetes mellitus with hyperglycemia (HCC) (Primary Dx); Situational anxiety Start: 01-03-2024 Telephone encounter Altagracia De Guzman APRN.TECHNICAL COMMUNICATOR Work Phone: [facility] Comment on above: Results Start: 01-02-2024 End: 01-02-2024 ambulatory Preet Keshia Gonzalezon DO Work Phone: [facility] Comment on above: vaginal symptoms Start: 01-02-2024 End: 01-02-2024 Patient encounter procedure Jemima Hernández APRN.TECHNICAL COMMUNICATOR Work Phone: [facility] Comment on above: Vaginal itching (Marleen darline Dx); Dysuria; Glucosuria Start: 12-24-2023 Telephone encounter Preet rojas DO Work Phone: [facility] [place] Comment on above: Patient Question Start: 12-09-2023 End: 12-09-2023 Patient encounter procedure Preet Gonzalezon DO Work Phone: [facility] [place] Comment on above: Uncontrolled type 2 diabetes mellitus with hyperglycemia (HCC) (Primary Dx); Nonrheumatic aortic valve stenosis; Hyperlipidemia, mixed; Disease of spinal cord (HCC); Renal artery stenosis (HCC); Other ulcerative colitis without complications (HCC); 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, without long-term current use of insulin (HCC); Acquired hypothyroidism; Essential hypertension, benign; Situational anxiety Start: 12-09-2023 End: 12-09-2023 ambulatory PREET FARRAR Facility:[facility] Start: 12-08-2023 Refill Preet franks DO Work Phone: [facility] [place] Comment on above: Refill Request Start: 11-25-2023 Telephone encounter Jacqueline franks INFRASTRUCTURE DESIGN ENGINEER.TECHNICAL COMMUNICATOR Work Phone: [facility] [place] Comment on above: Medication Request Start: 11-24-2023 End: 11-25-2023 Emergency department patient visit PREET FARRAR Facility:[facility] Start: 11-24-2023 End: 11-25-2023 Emergency department patient visit ELOISA LEVIN MD [facility] Start: 11-19-2023 Telephone encounter Jacqueline franks INFRASTRUCTURE DESIGN ENGINEER.TECHNICAL COMMUNICATOR Work Phone: [facility] [place] Start: 11-19-2023 End: 11-19-2023 ambulatory JACQUELINE ACOSTASON Facility:[facility] Start: 11-19-2023 End: 11-19-2023 Patient encounter procedure Jacqueline Candelario INFRASTRUCTURE DESIGN ENGINEER.TECHNICAL COMMUNICATOR Work Phone: [facility] [place] Comment on above: Essential hypertensi on, benign (Primary Dx); Situational anxiety Start: 11-18-2023 Telephone encounter Jacqueline franks INFRASTRUCTURE DESIGN ENGINEER.TECHNICAL COMMUNICATOR Work Phone: [facility] [place] Comment on above: Results Start: 11-16-2023 End: 11-16-2023 ambulatory LEAH CRUZUTZMAN Facility:[facility] Start: 11-13-2023 End: 11-13-2023 ambulatory JACQUELINE CANDELARIO Facility:[facility] Start: 11-13-2023 End: 11-13-2023 Patient encounter procedure Jacqueline Candelario INFRASTRUCTURE DESIGN ENGINEER.TECHNICAL COMMUNICATOR Work Phone: [facility] [place] Comment on above: Essential hypertensi on, benign (Primary Dx); Acquired hypothyroidism; Controlled type 2 diabetes mellitus without complication, with long-term current use of insulin (HCC); Uncontrolled type 2 diabetes mellitus with hyperglycemia (HCC) Start: 11-12-2023 Telephone encounter Preet rojas DO Work Phone: [facility] [place] Comment on above: Patient Update Start: 10-29-2023 End: 10-29-2023 ambulatory JACQUELINE CANDELARIO Facility:[facility] Start: 10-29-2023 End: 10-29-2023 Patient encounter procedure Jacqueline Candelario INFRASTRUCTURE DESIGN ENGINEER.TECHNICAL COMMUNICATOR Work Phone: [facility] [place] Comment on above: Essential hypertensi on, benign (Primary Dx) Start: 09-14-2023 End: 09-14-2023 ambulatory [facility] Facility:[facility] Start: 09-08-2023 End: 09-08-2023 ambulatory [facility] Facility:[facility] Start: 08-04-2023 Telephone encounter Preet rojas DO Work Phone: [facility] [place] Comment on above: Medication Question Start: 07-31-2023 Telephone encounter Preet rojas DO Work Phone: [facility] [place] Comment on above: Results Start: 07-30-2023 End: 07-30-2023 ambulatory PREET FARRAR Facility:[facility] Start: 07-29-2023 ambulatory [facility] [place] Comment on above: Population Health Na vigation Outreach ([facility] care gap) Start: 07-29-2023 Telephone encounter Preet rojas DO Work Phone: [facility] [place] Comment on above: Insurance Authorizat ion Start: 07-28-2023 Telephone encounter Preet rojas DO Work Phone: [facility] [place] Comment on above: Call from Dr. Kaylin lui, Neurologist Start: 07-22-[address] INFRASTRUCTURE DESIGN ENGINEER.TECHNICAL COMMUNICATOR Work Phone: [facility] [place] Comment on above: Medication Problem Start: 07-15-2023 End: 07-15-2023 Patient encounter procedure Leah Rivero INFRASTRUCTURE DESIGN ENGINEER.TECHNICAL COMMUNICATOR Work Phone: [facility] [place] Comment on above: Uncontrolled type 2 diabetes mellitus with hyperglycemia (HCC) (Primary Dx); Acquired hypothyroidism; Essential hypertension, benign; Renal artery stenosis (HCC) Start: 07-06-2023 Telephone encounter Preet Keshia Joaquim rojas DO Work Phone: [facility] [place] Start: 07-01-2023 Telephone encounter Preet Keshia Joaquim rojas DO Work Phone: [facility] [place] Comment on above: Patient Update Start: 06-26-2023 End: 06-26-2023 Patient encounter procedure Jacqueline Candelario INFRASTRUCTURE DESIGN ENGINEER.TECHNICAL COMMUNICATOR Work Phone: [facility] [place] Comment on above: Nausea and vomiting, unspecified vomiting type (Primary Dx); Hyperglycemia; Controlled type 2 diabetes mellitus without complication, without long-term current use of insulin (HCC) Start: 06-19-2023 End: 06-19-2023 Patient encounter procedure Leah Rivero [place].TECHNICAL COMMUNICATOR Work Phone: [facility] [place] Comment on above: Uncontrolled type 2 diabetes mellitus with hyperglycemia (HCC) (Primary Dx); Acquired hypothyroidism; Vitamin B12 deficiency Start: 05-18-2023 Refill Preet Trujillodomenic franks DO Work Phone: [facility] [place] Comment on above: Refill Request Start: 05-04-2023 Telephone encounter Preet rojas DO Work Phone: [facility] [place] Comment on above: medication issue Start: 04-30-2023 End: 04-30-2023 Patient encounter procedure Jacqueline Kodak INFRASTRUCTURE DESIGN ENGINEER.TECHNICAL COMMUNICATOR Work Phone: [facility] [place] Comment on above: Uncontrolled type 2 diabetes mellitus with hyperglycemia (HCC) Start: 03-24-2023 Telephone encounter Preet Keshia Joaquim rojas DO Work Phone: [facility] [place] Comment on above: Oblong thyroid PA Start: 03-18-2023 End: 03-18-2023 Patient encounter procedure Preet Farrar DO Work Phone: [facility] [place] Comment on above: Uncontrolled type 2 diabetes mellitus with hyperglycemia (HCC) (Primary Dx); Acquired hypothyroidism; Dyslipidemia; History of tobacco abuse; Essential hypertension, benign Start: 03-03-2023 Refill Preet franks DO Work Phone: [facility] [place] Comment on above: Refill Request Start: 02-02-2023 Refill Preet franks DO Work Phone: [facility] [place] Comment on above: Refill Request Start: 12-23-2022 Telephone encounter Preet rojas DO Work Phone: [facility] [place] Comment on above: Medication Problem; Patient Update Start: 12-15-2022 Telephone encounter [facility]jas DO [facility] Comment on above: Patient Update Start: 12-10-2022 End: 12-10-2022 Patient encounter procedure Preet F[facility]ar DO [facility] Comment on above: Uncontrolled type 2 diabetes mellitus with hyperglycemia (HCC) (Primary Dx); Ischemic stroke without residual deficits (HCC); Dyslipidemia; Acquired hypothyroidism; Vitamin D deficiency; Vitamin B12 deficiency; History of tobacco abuse Start: 11-05-2022 End: 11-05-2022 Patient encounter procedure Jacqueline Candelario TECHNICAL COMMUNICATOR [facility] Phone[facility] Comment on above: Ischemic stroke with out residual deficits (HCC) (Primary Dx); Essential hypertension, benign; Uncontrolled type 2 diabetes mellitus with hyperglycemia (HCC); Dyslipidemia; Encounter for smoking cessation counseling; Controlled type 2 diabetes mellitus without complication, without long-term current use of insulin (HCC) Start: 11-02-2022 ambulatory Janis solorio RN NURSE [facility] Comment on above: Foot Deformity Start: 10-08-2022 Refill Preet franks DO Work Phone[facility] Comment on above: Refill Request Start: 09-03-2022 Telephone encounter Preet rojas DO [facility] Phone[facility] Comment on above: Patient Question; Or ders Start: 08-27-2022 Refill Preet franks DO Work Phone: [address] [place] [address] Comment on above: Refill Request Start: 05-28-2022 Refill Preet franks DO Work Phone: [facility] [place] Comment on above: Refill Request Start: 05-06-2022 Refill Jacqueline loera APRNHectorTECHNICAL COMMUNICATOR Work Phone: [facility] Comment on above: Refill Request Start: 04-07-2022 Telephone encounter Preet rojas DO Work Phone: [facility] [place] Comment on above: Results Start: 04-02-2022 Refill Preet franks DO Work Phone: [facility] [place] Comment on above: Refill Request Start: 03-26-2022 ambulatory Preet franks DO Work Phone: [facility] [place] Start: 02-28-2022 End: 02-28-2022 Subsequent hospital visit by physician Giovani [facility] [place] [facility] Work Phone: Radiology Comment on above: Closed fracture of d istal end of left fibula, unspecified fracture morphology, initial encounter [S82.832A] Start: 02-27-2022 Telephone encounter Preet rojas DO Work Phone: [facility] [place] Comment on above: Patient Question Start: 02-21-2022 Telephone encounter Preet rojas DO Work Phone: [facility] [place] Comment on above: Results Start: 02-20-2022 Refill Preet franks DO Work Phone: [facility] [place] Comment on above: Refill Request Start: 02-19-2022 End: 02-19-2022 Patient encounter procedure Preet Farrar DO Work Phone: [facility] Comment on above: Uncontrolled hyperte nsion (Primary Dx); Palpitations; Uncontrolled type 2 diabetes mellitus with hyperglycemia (HCC); Essential hypertension, benign; Acquired hypothyroidism Start: 02-12-2022 Telephone encounter Preet Walker arrfannie DO Work Phone: [facility] Comment on above: Patient Question; Pa tient Update Start: 02-10-2022 End: 02-10-2022 Subsequent hospital visit by physician Xr [facility] Tomasz Degroot Work Phone: Radiology Comment on above: Closed fracture of d istal end of left fibula, unspecified fracture morphology, initial encounter [S82.832A] Start: 01-31-2022 End: 01-31-2022 Patient encounter procedure Leah Rivero APRN.TECHNICAL COMMUNICATOR Work Phone: [facility] Comment on above: Essential hypertensi on, benign (Primary Dx); Acquired hypothyroidism; Controlled type 2 diabetes mellitus without complication, without long-term current use of insulin (HCC) Start: 01-30-2022 End: 01-30-2022 Patient encounter procedure Steve Reasridhar Work Phone: Podiatry Comment on above: Closed fracture of d istal end of left fibula, unspecified fracture morphology, initial encounter (Primary Dx) Start: 01-23-2022 End: 01-23-2022 Subsequent hospital visit by physician Giovani [facility] Tomasz Work Phone: Radiology Comment on above: Acute left ankle karie n [M25.572] Start: 01-23-2022 End: 01-23-2022 Patient encounter procedure Nataly Ryan APRN.TECHNICAL COMMUNICATOR Work Phone: [facility] Comment on above: Acute left ankle karie n (Primary Dx) Start: 01-14-2022 Telephone encounter Preet rojas DO Work Phone: [facility] Comment on above: Insurance Authorizat ion Start: 06-07-2021 Telephone encounter Preet rojas DO Work Phone: [facility] Comment on above: Results Start: 12-21-2020 End: 12-28-2020 Evaluation and management of inpatient Mhd Yenibernadetteevangelina Gunter Work Phone: [facility] Procedures Date Procedure Procedure Detail Performing Clinician Start: 01-06-2024 Hemoglobin A1c/Hemoglobin.total in Blood Jacqueline Candelario APRN.TECHNICAL COMMUNICATOR Work Phone: Start: 01-02-2024 Gluc bld gluc mntr d ev cleared fda spec home use Jemima Hernández INFRASTRUCTURE DESIGN ENGINEER.TECHNICAL COMMUNICATOR Work Phone: Start: 01-02-2024 Urnls dip stick/tabl et rgnt auto w/o microscopy Jemima Hernández INFRASTRUCTURE DESIGN ENGINEER.TECHNICAL COMMUNICATOR Work Phone: Start: 02-28-2022 Radex ankle complete minimum 3 views Steve Rodriguez Work Phone: Start: 02-10-2022 Radex ankle complete minimum 3 views Steve Rodriguez Work Phone: Start: 01-23-2022 Radex ankle complete minimum 3 views Nataly Ryan INFRASTRUCTURE DESIGN ENGINEER.TECHNICAL COMMUNICATOR Work Phone: Start: 04-24-2021 Adult depression scr eening assessment Preet Farrar DO Work Phone: Start: 12-28-2020 Gluc bld gluc mntr d ev cleared fda spec home use Yazid R Butch Work Phone: Start: 12-28-2020 Gluc bld gluc mntr d ev cleared fda spec home use Yazid R Butch Work Phone: Start: 12-27-2020 Gluc bld gluc mntr d ev cleared fda spec home use Yazid R Butch Work Phone: Start: 12-27-2020 Gluc bld gluc mntr d ev cleared fda spec home use Yazid R Butch Work Phone: Start: 12-27-2020 COVID-19 Yazid R Hu ssein Work Phone: Start: 12-27-2020 Gluc bld gluc mntr d ev cleared fda spec home use Yazid R Butch Work Phone: Start: 12-26-2020 Gluc bld gluc mntr d ev cleared fda spec home use Yazid R Butch Work Phone: Start: 12-26-2020 Gluc bld gluc mntr d ev cleared fda spec home use Yazid R Butch Work Phone: Start: 12-26-2020 Gluc bld gluc mntr d ev cleared fda spec home use Sulemazid R Butch Work Phone: Start: 12-26-2020 Gluc bld gluc mntr d ev cleared fda spec home use d Marield Almoselli Work Phone: Start: 12-25-2020 Gluc bld gluc mntr d ev cleared fda spec home use d Marield Almoselli Work Phone: Start: 12-25-2020 Gluc bld gluc mntr d ev cleared fda spec home use d Marield Almoselli Work Phone: Start: 12-25-2020 Gluc bld gluc mntr d ev cleared fda spec home use d Marield Wilmeroselli Work Phone: Start: 12-25-2020 Gluc bld gluc mntr d ev cleared fda spec home use d Marield Wilmeroselli Work Phone: Start: 12-24-2020 Gluc bld gluc mntr d ev cleared fda spec home use d Marield Almoselli Work Phone: Start: 12-24-2020 Gluc bld gluc mntr d ev cleared fda spec home use d Marield Wilmeroselli Work Phone: Start: 12-24-2020 Assay of thyroid stimulating hormone tsh [facility] Jose Barriosli Work Phone: Start: 12-24-2020 Gluc bld gluc mntr d ev cleared fda spec home use d Marield Almoselli Work Phone: Start: 12-24-2020 Gluc bld gluc mntr d ev cleared fda spec home use d Marield Wilmeroselli Work Phone: Start: 12-24-2020 Gluc bld gluc mntr d ev cleared fda spec home use d Marield Almoselli Work Phone: Start: 12-24-2020 Blood count complete auto&auto difrntl wbc [facility] Marield Sophieli Work Phone: Start: 12-24-2020 Gluc bld gluc mntr d ev cleared fda spec home use d Mariled Sophieli Work Phone: Start: 12-23-2020 Gluc bld gluc mntr d ev cleared fda spec home use Marciad Marield Sophieli Work Phone: Start: 12-23-2020 Gluc bld gluc mntr d ev cleared fda spec home use d Marield Sophieli Work Phone: Start: 12-23-2020 Gluc bld gluc mntr d ev cleared fda spec home use d Marield Sophieli Work Phone: Start: 12-23-2020 Gluc bld gluc mntr d ev cleared fda spec home use Marciad Jose Barriosli Work Phone: Start: 12-23-2020 Gluc bld gluc mntr d ev cleared fda spec home use d Jose Barirosli Work Phone: Start: 12-23-2020 Blood count complete auto&auto difrntl wbc evangelina Gunter Work Phone: Start: 12-23-2020 Gluc bld gluc mntr d ev cleared fda spec home use Marciad Marield Sophieli Work Phone: Start: 12-22-2020 Gluc bld gluc mntr d ev cleared fda spec home use d Marield Sophieli Work Phone: Start: 12-22-2020 Gluc bld gluc mntr d ev cleared fda spec home use d Marield Sophieli Work Phone: Start: 12-22-2020 Blood count complete auto&auto difrntl wbc d Marield Wilmeroselli Work Phone: Start: 12-22-2020 MANUAL DIFFERENTIAL d Marield Sophieli Work Phone: Start: 12-22-2020 Gluc bld gluc mntr d ev cleared fda spec home use Marciad Marield Lyric Work Phone: Start: 12-22-2020 Glucose quantitative blood xcpt reagent strip Marciad Marield Lyric Work Phone: Start: 12-22-2020 Gluc bld gluc mntr d ev cleared fda spec home use d Marield Sophieli Work Phone: Start: 12-22-2020 Gluc bld gluc mntr d ev cleared fda spec home use d Marield Sophieli Work Phone: Start: 12-22-2020 Hemoglobin glycosylated a1c Treva Henderson Work Phone: Start: 12-21-2020 OPERATIVE REPORT 3m Sca nning Start: 12-21-2020 Chest x-ray 1 view frontal Shilpi A Eggebrecht Work Phone: Start: 12-21-2020 Radex spine lumbosac ral 2/3 views Shilpi A Eggebrecht Work Phone: Start: 12-21-2020 Basic metabolic pane l calcium total Shilpi A Eggebrecht Work Phone: Start: 12-21-2020 Blood count complete automated Shilpi A Eggebrecht Work Phone: Start: 12-21-2020 Blood typing serologic abo Shilpi A Eggebrecht Work Phone: Start: 12-21-2020 Prothrombin time Zaaddier y A Eggebrecht Work Phone: Start: 12-21-2020 Thromboplastin time partial plasma/whole blood Shilpi A Eggebrecht Work Phone: Start: 12-21-2020 End: 12-22-2020 Gluc bld gluc mntr dev cleared fda spec home use Marciad Marield Sophieli Work Phone: Start: 03-26-2021 Ecg routine ecg w/le ast 12 lds w/i&r Shilpi Rock Work Phone: Start: 11-16-2013 Mammography Preet nuñez DO Work Phone: Start: 09-09-2013 Colonoscopy Preet nuñez DO Work Phone: Hernia repair ELOISA LEVIN MD Special back care ELOISA MCKEON MD Tonsillectomy ELOISA LEVIN MD Plan of Treatment Date Care Activity Detail Author Start: 06-14-2025 Annual PCP Team Chronic Disease Visit Annual PCP Team Chronic Disease Visit [facility] Start: 05-25-2025 Annual PCP Team Chronic Disease Visit Annual PCP Team Chronic Disease Visit [facility] Start: 05-25-2025 BP Controlled (<130/80) BP Controlled (<130/80) [facility] Start: 05-17-2025 Hepatitis B surface antibody level LDL Cholesterol [facility] Start: 03-21-2025 Annual PCP Team Chronic Disease Visit Annual PCP Team Chronic Disease Visit [facility] Start: 01-26-2025 Annual PCP Team Chronic Disease Visit Annual PCP Team Chronic Disease Visit [facility] Start: 01-26-2025 BP Controlled (<130/80) BP Controlled (<130/80) [facility] Start: 01-05-2025 Annual PCP Team Chronic Disease Visit Annual PCP Team Chronic Disease Visit [facility] Start: 12-08-2024 Annual PCP Team Chronic Disease Visit Annual PCP Team Chronic Disease Visit [facility] Start: 12-08-2024 Glaucoma screening Dilated Retinal Exam [facility] Start: 11-19-2024 Annual PCP Team Chronic Disease Visit Annual PCP Team Chronic Disease Visit [facility] Start: 11-19-2024 BP Controlled (<130/80) BP Controlled (<130/80) [facility] Start: 11-17-2024 Hemoglobin A1c measurement HbA1C [facility] Start: 11-13-2024 Annual PCP Team Chronic Disease Visit Annual PCP Team Chronic Disease Visit [facility] Start: 11-13-2024 Covid-19 Vaccine (#1) Covid-19 Vaccine (#1) [facility] Comment on above: Postponed from 03/03/1956 (Declined at t his time) Start: 11-13-2024 Covid-19 Vaccine ( season) Covid-19 Vaccine ( season) [facility] Comment on above: Postponed from 05/29/2023 (Declined at t his time) Start: 11-13-2024 Hepatitis B screening Urine Albumin:Creatinine Ratio [facility] Start: 11-13-2024 Hepatitis B surface antibody level LDL Cholesterol [facility] Start: 11-13-2024 Pneumococcal Vaccine: 65+ (1 of 2 - PCV) Pneumococcal Vaccine: 65+ (1 of 2 - PCV) [facility] Comment on above: Postponed from 1961 (Declined at t his time) Start: 11-13-2024 Shingrix Vaccine (1 of 2) Shingrix Vaccine (1 of 2) [facility] Comment on above: Postponed from 2005 (Declined at t his time) Start: 11-13-2024 Urine microalbumin profile DTaP,Tdap,Td Vaccine (1 - Tdap) [facility] Comment on above: Postponed from 1974 (Declined at t his time) Start: 11-01-2024 End: 11-01-2024 Patient encounter procedure 11/01/2024 1:00 PM EST Office Visit Cardiology [address] [place] [id number] Torri Hunt MD [address] [place] [id number] Rescheduled from 07/25 Cardiology Comment on above: Rescheduled from 07/25 Start: 10-29-2024 Annual PCP Team Chronic Disease Visit Annual PCP Team Chronic Disease Visit [facility] Start: 10-07-2024 End: 10-07-2024 Patient encounter procedure [facility] Comment on above: 3 month follow up 3 month follow up-ne eds also Medicare wellness Start: 09-14-2024 RSV Vaccine (1 - 1-dose 60+ series) RSV Vaccine (1 - 1-dose 60+ series) [facility] Comment on above: Postponed from 2015 (Declined at t his time) Start: 09-14-2024 RSV Vaccine (1 - Risk 60-74 years 1-dose series) RSV Vaccine (1 - Risk 60-74 years 1-dose series) [facility] Comment on above: Postponed from 2015 (Declined at t his time) Start: 08-11-2024 End: 08-11-2024 Patient encounter procedure 08/11/2024 9:40 AM EST Office Visit Endocrinology [address] [place], [place] [id number] Bean Isaac MD [address] [facility] [address] [place], [place] [id number] 3 MTH F/U Endocrinology Comment on above: 3 MTH F/U Start: 07-25-2024 End: 07-25-2024 Patient encounter procedure 07/25/2024 10:20 AM EDT Office [facility] [address] [facility] [place] [id number] Jose Lay MD [address] [facility], [address] [place], [place] [id number] Uncontrolled type 2 diabetes mellitus with hyperglycemia (HCC) [E11.65] Cardiology Comment on above: Uncontrolled type 2 diabetes mellitus wi th hyperglycemia (HCC) [E11.65] Start: 07-15-2024 Annual PCP Team Chronic Disease Visit Annual PCP Team Chronic Disease Visit [facility] Start: 07-15-2024 BP Controlled (<130/80) BP Controlled (<130/80) [facility] Start: 07-15-2024 Hepatitis B Vaccine (1 of 3 - Risk 3-dose series) Hepatitis B Vaccine (1 of 3 - Risk 3-dose series) [facility] Comment on above: Postponed from 2015 (Declined at t his time) Start: 07-14-2024 End: 10-13-2024 Thyrotropin [Units/volume] in Serum or Plasma THYROID STIMULATING HORMONE Lab Routine Acquired hypothyroidism Expected: 07/14/2024, Expires: 10/13/2024 [facility] Work Phone: Comment on above: Expected: 07/14/2024, Expires: Start: 07-14-2024 End: 10-13-2024 Thyroxine (T4) free [Mass/volume] in Serum or Plasma T4 FREE/FREE THYROXINE Lab Routine Acquired hypothyroidism Expected: 07/14/2024, Expires: 10/13/2024 [facility] Comment on above: Expected: 07/14/2024, Expires: Start: 07-14-2024 End: 10-13-2024 Triiodothyronine (T3) Free [Mass/volume] in Serum or Plasma T3, FREE Lab Routine Acquired hypothyroidism Expected: 07/14/2024, Expires: 10/13/2024 [facility] Comment on above: Expected: 07/14/2024, Expires: Start: 07-07-2024 Hemoglobin A1c measurement HbA1C [facility] Start: 06-27-2024 End: 06-27-2024 Patient encounter procedure 06/27/2024 9:20 AM EDT Office Visit Family [facility]ek[facility] [address] [place], [place] [id number] Preet Farrar DO [address] [place] [address] 2-3 month follow up Family [facility] Comment on above: 2-3 month follow up Start: 06-26-2024 Annual PCP Team Chronic Disease Visit Annual PCP Team Chronic Disease Visit [facility] Start: 06-26-2024 BP Controlled (<130/80) BP Controlled (<130/80) [facility] Start: 06-19-2024 Annual PCP Team Chronic Disease Visit Annual PCP Team Chronic Disease Visit [facility] Start: 06-19-2024 BP Controlled (<130/80) BP Controlled (<130/80) [facility] Start: 06-15-2024 Hepatitis B surface antibody level LDL Cholesterol [facility] Start: 05-29-2024 Covid-19 Vaccine ( season) Covid-19 Vaccine ( season) [facility] Start: 05-29-2024 Covid-19 Vaccine () Covid-19 Vaccine () [facility] Start: 05-29-2024 Influenza vaccination [facility] Start: 05-25-2024 End: 05-25-2024 Patient encounter procedure 05/25/2024 2:40 PM EDT Office Visit [facility] [place] [address] [place] [address] Catalina Young APRN.TECHNICAL COMMUNICATOR [address] [place] [address] [facility] 05/22/24 Left side pain Family [facility] Comment on above: [facility] 05/22/24 Left side pain Start: 05-16-2024 Hemoglobin A1c measurement HbA1C [facility] Start: 05-13-2024 Hemoglobin A1c measurement HbA1C [facility] Start: 05-10-2024 End: 05-10-2024 Patient encounter procedure 05/10/2024 1:40 PM EDT Office Visit Endocrinology [address] [place] [address] Bean Isaac MD [address] [place] [address] Uncontrolled type 2 diabetes mellitus with hyperglycemia (HCC) [E11.65] Endocrinology Comment on above: Uncontrolled type 2 diabetes mellitus wi th hyperglycemia (HCC) [E11.65] Start: 04-30-2024 ANNUAL PCP TEAM CHRONIC DISEASE VISIT ANNUAL PCP TEAM CHRONIC DISEASE VISIT [facility] Start: 03-27-2024 Influenza vaccination Influenza Vaccine (#1) [facility] Comment on above: Postponed from 05/29/2023 (Declined at t his time) Start: 03-21-2024 End: 03-21-2024 Patient encounter procedure [facility] Comment on above: medicare wellness TCM. [facility] hosp f/u d/ c 03-09-24. Gastroenteritis. Hyperglycemia. Start: 03-18-2024 ANNUAL PCP TEAM CHRONIC DISEASE VISIT ANNUAL PCP TEAM CHRONIC DISEASE VISIT [facility] Start: 03-10-2024 End: 06-09-2024 CBC panel - Blood by Automated count CBC Lab Routine Uncontrolled type 2 diabetes mellitus with hyperglycemia (HCC) Expected: 03/10/2024, Expires: 06/09/2024 [facility] Work Phone: Comment on above: Expected: 03/10/2024, Expires: 4 Start: 03-10-2024 End: 06-09-2024 Comprehensive metabolic 2000 panel - Serum or Plasma COMP METABOLIC PANEL Lab Routine Uncontrolled type 2 diabetes mellitus with hyperglycemia (HCC) Expected: 03/10/2024, Expires: 06/09/2024 [facility] Work Phone: Comment on above: Expected: 03/10/2024, Expires: 4 Start: 03-10-2024 End: 06-09-2024 Hemoglobin A1c in Blood HGB A1C Lab Routine Uncontrolled type 2 diabetes mellitus with hyperglycemia (HCC) Expected: 03/10/2024, Expires: 06/09/2024 [facility] Work Phone: Comment on above: Expected: 03/10/2024, Expires: Start: 03-10-2024 Hepatitis B surface antibody level LDL CHOLESTEROL [facility] Start: 03-10-2024 End: 06-09-2024 Lipid 1996 panel - Serum or Plasma LIPID PANEL BASIC Lab Routine Hyperlipidemia, mixed Expected: 03/10/2024, Expires: 06/09/2024 [facility] Work Phone: Comment on above: Expected: 03/10/2024, Expires: 4 Start: 03-10-2024 End: 06-09-2024 Magnesium [Mass/volume] in Serum or Plasma MAGNESIUM Lab Routine Poor sleep Expected: 03/10/2024, Expires: 06/09/2024 [facility] Work Phone: Comment on above: Expected: 03/10/2024, Expires: 4 Start: 03-10-2024 End: 06-09-2024 Thyrotropin [Units/volume] in Serum or Plasma TSH BLD Lab Routine Uncontrolled type 2 diabetes mellitus with hyperglycemia (HCC) Expected: 03/10/2024, Expires: 06/09/2024 [facility] Work Phone: Comment on above: Expected: 03/10/2024, Expires: 4 Start: 03-09-2024 Hemoglobin A1c measurement HbA1C [facility] Start: 02-17-2024 Glaucoma screening Dilated Retinal Exam [facility] Start: 02-17-2024 Hepatitis C antibody, confirmatory test DILATED RETINAL EXAM [facility] Start: 12-14-2023 Hemoglobin A1c/Hemoglobin.total in Blood HbA1C [facility] Start: 12-12-2023 End: 03-12-2024 ALBUMIN/CREAT RATIO RND UR ALBUMIN/CREAT RATIO RND UR Lab Routine Uncontrolled type 2 diabetes mellitus with hyperglycemia (HCC) Expected: 12/12/2023, Expires: 03/12/2024 [facility] Work Phone: Comment on above: Expected: 12/12/2023, Expires: 4 Start: 12-12-2023 End: 03-12-2024 Comprehensive metabolic 2000 panel - Serum or Plasma COMP METABOLIC PANEL Lab Routine Essential hypertension, benign Expected: 12/12/2023, Expires: 03/12/2024 [facility] Work Phone: Comment on above: Expected: 12/12/2023, Expires: 4 Start: 12-12-2023 End: 03-12-2024 Lipid 1996 panel - Serum or Plasma LIPID PANEL BASIC Lab Routine Essential hypertension, benign Expected: 12/12/2023, Expires: 03/12/2024 [facility] Work Phone: Comment on above: Expected: 12/12/2023, Expires: 4 Start: 12-11-2023 3 comp foot exam completed DIABETIC FOOT EXAM [facility] Start: 12-11-2023 ANNUAL PCP TEAM CHRONIC DISEASE VISIT ANNUAL PCP TEAM CHRONIC DISEASE VISIT [facility] Start: 12-11-2023 BP CONTROLLED (<130/80) BP CONTROLLED (<130/80) [facility] Start: 12-11-2023 Diabetic foot examination Diabetic Foot Exam [facility] Start: 12-03-2023 Hepatitis B surface antibody level LDL CHOLESTEROL [facility] Start: 11-13-2023 End: 02-12-2024 Thyrotropin [Units/volume] in Serum or Plasma [facility] Work Phone: Comment on above: Expected: 11/13/2023, Expires: 4 Start: 11-13-2023 End: 02-12-2024 Thyroxine (T4) free [Mass/volume] in Serum or Plasma [facility] Work Phone: Comment on above: Expected: 11/13/2023, Expires: 4 Start: 11-13-2023 End: 02-12-2024 Triiodothyronine (T3) [Mass/volume] in Serum or Plasma [facility] Work Phone: Comment on above: Expected: 11/13/2023, Expires: 4 Start: 11-05-2023 ANNUAL PCP TEAM CHRONIC DISEASE VISIT ANNUAL PCP TEAM CHRONIC DISEASE VISIT [facility] Start: 11-05-2023 BP CONTROLLED (<130/80) BP CONTROLLED (<130/80) [facility] Start: 11-05-2023 COVID-19 VACCINE (#1) COVID-19 VACCINE (#1) [facility] Comment on above: Postponed from 03/03/1956 (Declined at t his time) Start: 11-05-2023 Hepatitis B screening URINE ALBUMIN:CREATININE RATIO [facility] Start: 11-05-2023 Pneumococcal Vaccine: 65+ (1 - PCV) Pneumococcal Vaccine: 65+ (1 - PCV) [facility] Comment on above: Postponed from 1961 (Declined at t his time) Start: 11-05-2023 Pneumococcal Vaccine: 65+ (1 of 2 - PCV) Pneumococcal Vaccine: 65+ (1 of 2 - PCV) [facility] Comment on above: Postponed from 1961 (Declined at t his time) Start: 11-05-2023 PNEUMOCOCCAL: 65+ (1 - PCV) PNEUMOCOCCAL: 65+ (1 - PCV) [facility] Comment on above: Postponed from 1961 (Declined at t his time) Start: 11-05-2023 SHINGRIX VACCINE (1 of 2) SHINGRIX VACCINE (1 of 2) [facility] Comment on above: Postponed from 2005 (Declined at t his time) Start: 11-05-2023 Urine microalbumin profile [facility] Comment on above: Postponed from 1974 (Declined at t his time) Start: 09-28-2023 Behavioral Health Screening Behavioral Health Screening [facility] Start: 09-28-2023 Depression Assessment Depression Assessment [facility] Start: 09-28-2023 zzBehavioral Health Screening zzBehavioral Health Screening [facility] Start: 09-27-2023 DEPRESSION ASSESSMENT DEPRESSION ASSESSMENT [facility] Comment on above: Postponed from 09/28/2022 (Declined at t his time) Start: 09-18-2023 End: 11-18-2023 Cobalamin (Vitamin B12) [Mass/volume] in Serum or Plasma VITAMIN B12 BLOOD Lab Routine Vitamin B12 deficiency Expected: 09/18/2023, Expires: 11/18/2023 [facility] Work Phone: Comment on above: Expected: 09/18/2023, Expires: 4 Start: 09-18-2023 End: 11-18-2023 Hemoglobin A1c in Blood HGB A1C Lab Routine Uncontrolled type 2 diabetes mellitus with hyperglycemia (HCC) Expected: 09/18/2023, Expires: 11/18/2023 [facility] Work Phone: Comment on above: Expected: 09/18/2023, Expires: 4 Start: 09-18-2023 End: 11-18-2023 Thyrotropin [Units/volume] in Serum or Plasma TSH BLD Lab Routine Acquired hypothyroidism Expected: 09/18/2023, Expires: 11/18/2023 [facility] Work Phone: Comment on above: Expected: 09/18/2023, Expires: 4 Start: 09-18-2023 End: 11-18-2023 Thyroxine (T4) free [Mass/volume] in Serum or Plasma T4 FREE/FREE THYROX Lab Routine Acquired hypothyroidism Expected: 09/18/2023, Expires: 11/18/2023 [facility] Work Phone: Comment on above: Expected: 09/18/2023, Expires: 4 Start: 09-18-2023 End: 11-18-2023 Triiodothyronine (T3) [Mass/volume] in Serum or Plasma T3 BLD Lab Routine Acquired hypothyroidism Expected: 09/18/2023, Expires: 11/18/2023 [facility] Work Phone: Comment on above: Expected: 09/18/2023, Expires: 4 Start: 09-10-2023 ANNUAL PCP TEAM CHRONIC DISEASE VISIT ANNUAL PCP TEAM CHRONIC DISEASE VISIT [facility] Start: 09-09-2023 Colonoscopy COLONOSCOPY [facility] Start: 09-09-2023 COLORECTAL CANCER SCREENING COLORECTAL CANCER SCREENING [facility] Start: 09-09-2023 Hemoglobin A1c/Hemoglobin.total in Blood HBA1C [facility] Start: 09-09-2023 Screening for malignant neoplasm of colon [facility] Start: 09-08-2023 Hepatitis B surface antibody level LDL CHOLESTEROL [facility] Start: 07-28-2023 End: 10-27-2023 POTASSIUM BLD POTASSIUM BLD Lab Routine Hypokalemia Expected: 07/28/2023, Expires: 10/27/2023 [facility] Work Phone: Comment on above: Expected: 07/28/2023, Expires: 4 Start: 06-18-2023 End: 08-18-2023 Comprehensive metabolic 2000 panel - Serum or Plasma COMP METABOLIC PANEL Lab Routine Uncontrolled type 2 diabetes mellitus with hyperglycemia (HCC) Expected: 06/18/2023, Expires: 08/18/2023 [facility] Work Phone: Comment on above: Expected: 06/18/2023, Expires: 3 Start: 06-18-2023 End: 08-18-2023 Hemoglobin A1c in Blood HGB A1C Lab Routine Uncontrolled type 2 diabetes mellitus with hyperglycemia (HCC) Expected: 06/18/2023, Expires: 08/18/2023 [facility] Work Phone: Comment on above: Expected: 06/18/2023, Expires: 3 Start: 06-18-2023 End: 08-18-2023 Lipid 1996 panel - Serum or Plasma LIPID PANEL BASIC Lab Routine Dyslipidemia Expected: 06/18/2023, Expires: 08/18/2023 [facility] Work Phone: Comment on above: Expected: 06/18/2023, Expires: 3 Start: 06-18-2023 End: 08-18-2023 Thyrotropin [Units/volume] in Serum or Plasma TSH BLD Lab Routine Acquired hypothyroidism Expected: 06/18/2023, Expires: 08/18/2023 [facility] Work Phone: Comment on above: Expected: 06/18/2023, Expires: 3 Start: 06-18-2023 End: 08-18-2023 Thyroxine (T4) free [Mass/volume] in Serum or Plasma T4 FREE/FREE THYROX Lab Routine Acquired hypothyroidism Expected: 06/18/2023, Expires: 08/18/2023 [facility] Work Phone: Comment on above: Expected: 06/18/2023, Expires: Start: 06-04-2023 Hemoglobin A1c/Hemoglobin.total in Blood HBA1C [facility] Start: 05-29-2023 Influenza vaccination [facility] Start: 03-27-2023 Influenza vaccination INFLUENZA (#1) [facility] Comment on above: Postponed from 05/29/2022 (Declined at t his time) Start: 03-12-2023 End: 05-12-2023 25-hydroxyvitamin D3 [Mass/volume] in Serum or Plasma VITAMIN D 25 HYDROXY Lab Routine Vitamin D deficiency Expected: 03/12/2023, Expires: 05/12/2023 [facility] Work Phone: Comment on above: Expected: 03/12/2023, Expires: 3 Start: 03-12-2023 End: 05-12-2023 CBC panel - Blood by Automated count CBC Lab Routine Uncontrolled type 2 diabetes mellitus with hyperglycemia (HCC) Expected: 03/12/2023, Expires: 05/12/2023 [facility] Work Phone: Comment on above: Expected: 03/12/2023, Expires: 3 Start: 03-12-2023 End: 05-12-2023 Comprehensive metabolic 2000 panel - Serum or Plasma COMP METABOLIC PANEL Lab Routine Uncontrolled type 2 diabetes mellitus with hyperglycemia (HCC) Expected: 03/12/2023, Expires: 05/12/2023 [facility] Work Phone: Comment on above: Expected: 03/12/2023, Expires: 3 Start: 03-12-2023 End: 05-12-2023 Hemoglobin A1c in Blood HGB A1C Lab Routine Uncontrolled type 2 diabetes mellitus with hyperglycemia (HCC) Expected: 03/12/2023, Expires: 05/12/2023 [facility] Work Phone: Comment on above: Expected: 03/12/2023, Expires: 3 Start: 03-12-2023 End: 05-12-2023 Lipid 1996 panel - Serum or Plasma LIPID PANEL BASIC Lab Routine Uncontrolled type 2 diabetes mellitus with hyperglycemia (HCC) Dyslipidemia Expected: 03/12/2023, Expires: 05/12/2023 [facility] Work Phone: Comment on above: Expected: 03/12/2023, Expires: 3 Start: 03-12-2023 End: 05-12-2023 Thyrotropin [Units/volume] in Serum or Plasma TSH BLD Lab Routine Acquired hypothyroidism Expected: 03/12/2023, Expires: 05/12/2023 [facility] Work Phone: Comment on above: Expected: 03/12/2023, Expires: 3 Start: 03-09-2023 Hemoglobin A1c/Hemoglobin.total in Blood HBA1C [facility] Start: 02-19-2023 ANNUAL PCP TEAM CHRONIC DISEASE VISIT ANNUAL PCP TEAM CHRONIC DISEASE VISIT [facility] Start: 01-31-2023 ANNUAL PCP TEAM CHRONIC DISEASE VISIT ANNUAL PCP TEAM CHRONIC DISEASE VISIT [facility] Start: 11-13-2022 Hepatitis B screening URINE ALBUMIN:CREATININE RATIO [facility] Start: 10-23-2022 3 comp foot exam completed DIABETIC FOOT EXAM [facility] Start: 10-23-2022 ANNUAL PCP TEAM CHRONIC DISEASE VISIT ANNUAL PCP TEAM CHRONIC DISEASE VISIT [facility] Start: 10-23-2022 BP CONTROLLED (<130/80) BP CONTROLLED (<130/80) [facility] Start: 10-23-2022 COVID-19 VACCINE (#1) COVID-19 VACCINE (#1) [facility] Comment on above: Postponed from 1960 (Declined at t his time) Postponed from 03/03 (Declined at this time) Start: 10-23-2022 COVID-19 VACCINE (1) COVID-19 VACCINE (1) [facility] Comment on above: Postponed from 1960 (Declined at t his time) Start: 09-28-2022 ADVANCE DIRECTIVE DISCUSSION ADVANCE DIRECTIVE DISCUSSION [facility] Start: 09-28-2022 DEPRESSION ASSESSMENT DEPRESSION ASSESSMENT [facility] Start: 09-03-2022 End: 11-03-2022 25-hydroxyvitamin D3 [Mass/volume] in Serum or Plasma VITAMIN D 25 HYDROXY Lab Routine Vitamin D deficiency Expected: 09/03/2022, Expires: 11/03/2022 [facility] Work Phone: Comment on above: Expected: 09/03/2022, Expires: 3 Start: 09-03-2022 End: 11-03-2022 CBC W Auto Differential panel - Blood CBC + DIFF Lab Routine Dyslipidemia Expected: 09/03/2022, Expires: 11/03/2022 [facility] Work Phone: Comment on above: Expected: 09/03/2022, Expires: 3 Start: 09-03-2022 End: 11-03-2022 Comprehensive metabolic 2000 panel - Serum or Plasma COMP METABOLIC PANEL Lab Routine Dyslipidemia Expected: 09/03/2022, Expires: 11/03/2022 [facility] Work Phone: Comment on above: Expected: 09/03/2022, Expires: 3 Start: 09-03-2022 End: 11-03-2022 Hemoglobin A1c in Blood HGB A1C Lab Routine Uncontrolled type 2 diabetes mellitus with hyperglycemia (HCC) Expected: 09/03/2022, Expires: 11/03/2022 [facility] Work Phone: Comment on above: Expected: 09/03/2022, Expires: 3 Start: 09-03-2022 End: 11-03-2022 Iron and Iron binding capacity panel - Serum or Plasma IRON + TIBC Lab Routine Iron deficiency anemia, unspecified iron deficiency anemia type Expected: 09/03/2022, Expires: 11/03/2022 [facility] Work Phone: Comment on above: Expected: 09/03/2022, Expires: 3 Start: 09-03-2022 End: 11-03-2022 Lipid 1996 panel - Serum or Plasma LIPID PANEL BASIC Lab Routine Dyslipidemia Expected: 09/03/2022, Expires: 11/03/2022 [facility] Work Phone: Comment on above: Expected: 09/03/2022, Expires: 3 Start: 08-22-2022 Hemoglobin A1c/Hemoglobin.total in Blood HBA1C [facility] Start: 07-10-2022 Hepatitis C antibody, confirmatory test DILATED RETINAL EXAM [facility] Start: 05-29-2022 Influenza vaccination [facility] Start: 05-22-2022 End: 07-22-2022 Hemoglobin A1c/Hemoglobin.total in Blood HGB A1C Lab Routine Uncontrolled type 2 diabetes mellitus with hyperglycemia (HCC) Expected: 05/22/2022 (Approximate), Expires: 07/22/2022 [facility] Work Phone: Comment on above: Expected: 05/22/2022 (Approximate), Expi res: 07/22/2022 Start: 05-13-2022 Hemoglobin A1c/Hemoglobin.total in Blood HBA1C [facility] Start: 04-24-2022 Adult depression screening assessment DEPRESSION SCREENING [facility] Start: 04-16-2022 Hepatitis B surface antibody level LDL CHOLESTEROL [facility] Start: 02-21-2022 End: 04-23-2022 ALDOSTERONE/DIRECT RENIN RATIO [facility] Work Phone: Comment on above: Expected: 02/21/2022, Expires: 2 Start: 02-19-2022 End: 04-21-2022 ALDOSTERONE/DIRECT RENIN RATIO [facility] Work Phone: Comment on above: Expected: 02/19/2022, Expires: 2 Start: 02-19-2022 End: 04-21-2022 Comprehensive metabolic 2000 panel - Serum or Plasma [facility] Work Phone: Comment on above: Expected: 02/19/2022, Expires: 2 Start: 02-19-2022 End: 04-21-2022 Cortisol [Mass/volume] in Serum or Plasma [facility] Work Phone: Comment on above: Expected: 02/19/2022, Expires: 2 Start: 02-19-2022 End: 04-21-2022 Urinalysis complete panel - Urine [facility] Work Phone: Comment on above: Expected: 02/19/2022, Expires: 2 Start: 12-22-2021 HbA1c (Bld) [Mass fraction] A1C test (Diabetic or Prediabetic) [facility] Work Phone: Start: 09-28-2021 ADVANCE DIRECTIVE DISCUSSION ADVANCE DIRECTIVE DISCUSSION [facility] Start: 09-28-2021 DEPRESSION ASSESSMENT DEPRESSION ASSESSMENT [facility] Start: 05-29-2021 Influenza vaccination Flu vaccine (Season Ended) [facility] Work Phone: Start: 12-22-2020 Annual Wellness Visit (AWV) Annual Wellness Visit (AWV) [facility] Work Phone: Start: 2020 Pneumococcal 65+ years Vaccine (1 of 1 - PPSV23) Pneumococcal 65+ years Vaccine (1 of 1 - PPSV23) [facility] Work Phone: Start: 2020 PNEUMOVAX AGE 65 AND OVER WITH 5YR LOOKBACK (#1) PNEUMOVAX AGE 65 AND OVER WITH 5YR LOOKBACK (#1) [facility] Start: 2015 Hepatitis B Vaccine (1 of 3 - Risk 3-dose series) Hepatitis B Vaccine (1 of 3 - Risk 3-dose series) [facility] Start: 2015 RSV Vaccine (1 - 1-dose 60+ series) RSV Vaccine (1 - 1-dose 60+ series) [facility] Start: 11-16-2014 Mammography [facility] Start: 11-16-2014 Screening for malignant neoplasm of breast Mammogram Screening [facility] Start: 2010 Screening for malignant neoplasm of lung Low dose CT lung screening [facility] Work Phone: Start: 2010 Screening for osteoporosis DEXA (modify frequency per FRAX score) [facility] Work Phone: Start: 2005 Screening for malignant neoplasm of breast Breast cancer screen [facility] Work Phone: Start: 2005 Screening for malignant neoplasm of colon Colon cancer screen colonoscopy [facility] Work Phone: Start: 2005 Shingles Vaccine (1 of 2) Shingles Vaccine (1 of 2) [facility] Work Phone: Start: 2005 SHINGRIX VACCINE (1 of 2) SHINGRIX VACCINE (1 of 2) [facility] Start: 2000 COLOGUARD (FIT-DNA) COLOGUARD (FIT-DNA) [facility] Start: [address] COLONOGRAPHY [facility] Start: 2000 FECAL OCCULT BLOOD FECAL OCCULT BLOOD [facility] Start: 2000 Screening for malignant neoplasm of colon [facility] Start: 2000 SIGMOIDOSCOPY SIGMOIDOSCOPY [facility] Start: 1976 Screening for malignant neoplasm of cervix Cervical cancer screen [facility] Work Phone: Start: 1974 DTaP/Tdap/Td vaccine (1 - Tdap) DTaP/Tdap/Td vaccine (1 - Tdap) [facility] Work Phone: Start: 1974 Hepatitis A Vaccine (1 of 2 - Risk 2-dose series) Hepatitis A Vaccine (1 of 2 - Risk 2-dose series) [facility] Start: 1974 Urine microalbumin profile DTAP,TDAP,TD (1 - Tdap) [facility] Start: 1973 Depression Screening Depression Screening [facility] Start: 1973 Diabetic microalbuminuria test Diabetic microalbuminuria test [facility] Work Phone: Start: 1973 MMR Vaccine (1 of 2 - Risk 2-dose series) MMR Vaccine (1 of 2 - Risk 2-dose series) [facility] Start: 1971 COVID-19 Vaccine (1) COVID-19 Vaccine (1) [facility] Work Phone: Start: 1970 HIV screening HIV screen [facility] Work Phone: Start: 1965 Diabetic foot examination Diabetic foot exam [facility] Work Phone: Start: 1965 Diabetic retinal exam Diabetic retinal exam [facility] Work Phone: Start: 1965 Lipid panel Lipid screen [facility] Work Phone: Start: 1965 Meningococcal B Vaccine: Consider Based On Risk (1 of 4 - Increased Risk) Meningococcal B Vaccine: Consider Based On Risk (1 of 4 - Increased Risk) [facility] Start: 1961 PNEUMOCOCCAL: 65+ (1 - PCV) PNEUMOCOCCAL: 65+ (1 - PCV) [facility] Start: 03-03-1956 COVID-19 VACCINE (#1) COVID-19 VACCINE (#1) [facility] Start: 1955 Hepatitis C screening Hepatitis C screen [facility] Work Phone: ALBUMIN/CREAT RATIO RND UR ALBUMIN/CREAT RATIO RND UR Lab Routine Uncontrolled type 2 diabetes mellitus with hyperglycemia (HCC) 11/13/2023 9:31 AM EST [facility] Work Phone: Bacteria identified in Urine by Culture URINE CULTURE Microbiology Routine Vaginal itching Dysuria Ordered: 01/02/2024 [facility] Work Phone: Comment on above: Ordered: 01/02/2024 BACTERIAL VAGINOSIS NAAT BACTERI AL VAGINOSIS NAAT Lab Routine Vaginal itching Dysuria Ordered: 01/02/2024 [facility] Work Phone: Comment on above: Ordered: 01/02/2024 JOLANTA/TRICHOMONAS NAAT JOLANTA /TRICHOMONAS NAAT Lab Routine Vaginal itching Dysuria Ordered: 01/02/2024 [facility] Work Phone: Comment on above: Ordered: 01/02/2024 Chlamydia trachomatis+Neisseria gonorrhoeae DNA [Presence] in Unspecified specimen by NELL with probe detection GONORRHEA/CHLAMYDIA NAAT Lab Routine Vaginal itching Dysuria Ordered: 01/02/2024 [facility] Work Phone: Comment on above: Ordered: 01/02/2024 Comprehensive metabo lic 2000 panel - Serum or Plasma COMP METABOLIC PANEL Lab Routine Essential hypertension, benign 11/13/2023 9:31 AM EST [facility] Work Phone: COVID & INFLUENZA A/ B & RSV NAAT, ROUTINE [facility] Work Phone: End: 02-19-2023 ECG COMPLETE ECG COMPLETE ECG Routine Uncontrolled hypertension Palpitations 1 Occurrences starting 02/19/2022 until 02/19/2023 [facility] Work Phone: Comment on above: 1 Occurrences starting 02/19/2022 until 02/19/2023 End: 02-19-2023 Echocardiography ECHO Cardiology Routine Uncontrolled hypertension Palpitations 1 Occurrences starting 02/19/2022 until 02/19/2023 [facility] Work Phone: Comment on above: 1 Occurrences starting 02/19/2022 until 02/19/2023 End: 12-21-2020 FL Greater Than 1 Hour FL Greater Than 1 Hour Imaging Routine Once for 1 Occurrences starting 12/21/2020 until 12/21/2020 [employer] Work Phone: Comment on above: Once for 1 Occurrences starting 12/22/19 until 12/21/2020 FL Greater Than 1 Hour FL Greate r Than 1 Hour Imaging Routine 12/21/2020 3:01 PM EDT [employer] Work Phone: Hemoglobin A1c/Hemoglobin.total in Blood HGB A1C Lab Routine Uncontrolled type 2 diabetes mellitus with hyperglycemia (HCC) 02/19/2022 12:38 PM EDT [facility] Work Phone: Lipid 1996 panel - S chayo or Plasma LIPID PANEL BASIC Lab Routine Essential hypertension, benign 11/13/2023 9:31 AM EST [facility] Work Phone: End: 03-04-2025 MG Breast Screening LAURO SCREENING Radiology Routine Encounter for screening mammogram for breast cancer 1 Occurrences starting 02/03/2024 until 03/04/2025 [facility] Work Phone: Comment on above: 1 Occurrences starting 02/03/2024 until 03/04/2025 Oxygen therapy [[facility] [place] Initiate Oxygen Therapy Protocol Respiratory Care Routine Daily until discontinued starting 12/21/2020 [facility] Work Phone: Comment on above: Daily until discontinued starting 2020 POCT glucose [facility] Work Phone: Comment on above: 4X Daily (AC & HS) until discontinued st arting 12/21/2020 As Needed until disc ontinued starting 12/21/2020 4X Daily (AC & HS) u ntil discontinued starting 12/24/2020 ROUTINE FLU A/B + RSV [facility] Work Phone: Comment on above: Ordered: 06/26/2023 SARS-CoV-2 (COVID-19 ) RNA [Presence] in Respiratory specimen by NELL with probe detection [facility] Work Phone: Comment on above: Ordered: 06/26/2023 End: 04-25-2023 Screening mammography bi 2-view breast inc cad LAURO SCREENING Radiology Routine Encounter for screening mammogram for breast cancer 1 Occurrences starting 03/26/2022 until 04/25/2023 [facility] Work Phone: Comment on above: 1 Occurrences starting 03/26/2022 until 04/25/2023 End: 02-19-2023 US CAROTID ARTERIES [facility] US CAROTID ARTERIES [facility] Vascular Lab Routine Uncontrolled hypertension Palpitations 1 Occurrences starting 02/19/2022 until 02/19/2023 [facility] Work Phone: Comment on above: 1 Occurrences starting 02/19/2022 until 02/19/2023 End: 02-19-2023 US RENAL ARTERY [facility] US RENAL ARTERY [facility] Vascular Lab Routine Uncontrolled hypertension Palpitations 1 Occurrences starting 02/19/2022 until 02/19/2023 [facility] Work Phone: Comment on above: 1 Occurrences starting 02/19/2022 until 02/19/2023 End: 03-01-2023 XR ANKLE GENERAL 3V AP/LAT/OBL LEFT XR ANKLE GENERAL 3V AP/LAT/OBL LEFT Radiology Routine Closed fracture of distal end of left fibula, unspecified fracture morphology, initial encounter 1 Occurrences starting 01/30/2022 until 03/01/2023 [facility] Work Phone: Comment on above: 1 Occurrences starting 01/30/2022 until 03/01/2023 [facility] Immunizations Immunization Date Immunization Notes Care Provider Larry moore 07-12-2018 influenza virus vacc ine, unspecified formulation Leah Rivero APRN.CNP Work Phone: [facility] Payers Date Payer Category Payer Medicaid [id number] 2021 Medicare UHC MEDICARE UHC DUAL COMPLETE HMO SNP [id number] 2021-Present [phone] [address] [place] [address] Medicare [id number] 2021 Medicare [id number] 2021 Private Health Insurance [id number] 2020 Medicare UHC MEDICARE UHC MEDICARE COMPLETE [id number] 2020-Present [id number] 2020 Medicaid MEDICAID [facility] MEDICAID [id number] 2020-Present [phone] [address] [place] [address] Medicaid [id number] 2020 Medicaid [id number] 1955 Unknown [id number] Social History Date Type Detail Facility Start: 01-11-2018 End: 12-25-2020 Tobacco smoking status IAIS Current every day smoker [facility] Start: 11-02-2002 End: 11-02-2022 History of tobacco use Cigarette Smoker [facility] Work Phone: Start: 12-25-2020 End: 03-18-2023 Cigarettes smoked current (pack per day) - Reported [facility] Work Phone: Start: 12-25-2020 End: 05-25-2024 Tobacco use and exposure Never used [employer] Work Phone: Start: 12-25-2020 [facility] intake [facility] (finding) [facility] Start: 1955 Sex Assigned At Not on file [facility] Work Phone: Start: 01-13-2022 End: 02-28-2022 Exposure to SARS-CoV-2 (event) Not sure [employer] Work Phone: Start: 10-23-2021 End: 06-14-2024 Alcohol intake Current drinker of alcohol (finding) [facility] Start: 10-15-2012 End: 09-10-2022 Tobacco Comment 20+ years smoking [facility] Start: 12-10-2022 End: 05-25-2024 Tobacco smoking status NHIS Ex-smoker [facility] Work Phone: Start: 11-02-2002 End: 11-02-2022 History of tobacco use Current smoker [facility] Work Phone: Start: 03-18-2023 End: 04-30-2023 Tobacco use panel [facility] Work Phone: Adult Depression Screening Assessment 0 [facility] Work Phone: Tobacco Nicotine Use: Po sitive smoking history. Type: Cigarettes. [facility] Tobacco smoking status [facility] Has the electric, [employer] s, oil, or water company threatened to shut off services in your home in past 12Mo No [facility] Are you now , , , , never or living with a partner? [facility] How often to you hav e a drink containing alcohol? Never [facility] Do you feel stress - tense, restless, nervous, or anxious, or unable to sleep at night because your mind is troubled all the time - these days [OSQ] Not at all [facility] (I/We) worried the [facility] (my/our) food would run out before (I/we) got money to buy more. Never true [facility] Medical Equipment Procedure Code Equipment Code Equipment Original Text Equipment Identifier Dates [id number], [id number], [id number], [id number], [id number] Start: 06-24-2013 End: 06-15-2024 Comment on above: Test blood sugar(s) 2 times daily. Dx: Type 2 DM - Uncontrolled E11.65 Insulin: No Test blood sugar(s) 2 times daily. Dx: 250.02. Insulin: No Test blood sugar(s) 2 times daily. Dx: E11.65. Insulin: No Test blood sugar(s) 4 times daily. Dx: E11.65. Insulin: No Test blood sugar(s) 8 times daily. Dx: E11.65. Insulin: No Functional Status Date Assessment Result Facility 11-25-2023 Functional Status Ambulation in Room [facility] Mental Status Date Assessment Result Facility 11-25-2023 Mental Status Oriented x 4 [facility] Clinical Notes 10-12-2018 to 07-25-2024 Telephone Encounter - Adelita Gomez MA - 07/25/2024 4:48 PM EDTTelephone Encounter - Adelita Gomez MA - 07/25/2024 4:48 PM EDTTelephone Encounter - Chelo Prasad RN - 07/25/2024 10:48 AM EDT Note Date & Type Note Facility 07-25-2024 Telephone encounter Note Pt notified. Adelita Gomez MA [facility] 07-25-2024 Miscellaneous Notes Pt notified. Adelita Gomez MA Noted, would still recommend increased dose of lantus as below Preet Farrar DO Pt. increased Amaryl to 3 mg. didn't feel it was working. Pt. feels it has been a few points lower around 150's to 160's Does she need a refresher for nutrition or diabetes education? Increase lantus to 18 units once a day SQ Preet Farrar DO Patient calls back in. Patient is concerned about her blood sugars being elevated. Patient's fasting blood sugar today was 196. Patient states that she does not eat a lot of carbs. Patient eats gluten free bread in am which is 16.5 grams of carbs. Patient states that she eats mostly protein. Patient takes 16 units of Lantus at HS, Januvia 100 mg, and glimepiride 2 mg. Patient is having DNC done on 07/26/2024. [facility] had faxed over surgical clearance form on 07/19/2024. This is on provider's desk. Patient is very worried about her blood sugars. Blood Sugar results brought in by patient.Placed on Dr. Farrar desk. documented in this encounter [facility] 07-25-2024 Telephone encounter Note Noted, would still recommend increased dose of lantus as below Preet Farrar DO [facility] 07-25-2024 Telephone encounter Note Forms faxed as below. [facility] 07-25-2024 Miscellaneous Notes Forms faxed as below. Lali at [facility] called again regarding this pt. Pt is to have procedure tomorrow and they are asking if Dr. Farrar's office received surgical clearance forms last week-they are in need of them being completed. Asking if someone can call them today with an update on the forms. Call Lali at [phone]. Chelo Prasad RN Form on Dr. Farrar's desk [facility] called in and reports she had faxed over the surgical clearance form on 07/15/24. I let them know it wasn't charted that they had received it, so she is going to send it again. Pt is going to have a DNC on 07/26/24, please fill out and fax back. Faxed recent thyroid labs and labs from April to [phone]. Let them know the other recent labs were external, and they would have to get them from [facility]. documented in this encounter [facility] 07-25-2024 Telephone encounter Note Lali at [facility] called again regarding this pt. Pt is to have procedure tomorrow and they are asking if Dr. Farrar's office received surgical clearance forms last week-they are in need of them being completed. Asking if someone can call them today with an update on the forms. Call Lali at [phone]. Chelo Prasad RN [facility] 07-25-2024 Telephone encounter Note Pt. increased Amaryl to 3 mg. didn't feel it was working. Pt. feels it has been a few points lower around 150's to 160's [facility] 07-23-2024 Telephone encounter Note Does she need a refresher for nutrition or diabetes education? Increase lantus to 18 units once a day SQ Preet Farrar DO [facility] 07-21-2024 Telephone encounter Note Patient notified of results and provider's instructions. Patient verbalizes understanding. Lisa Aparicio RN [facility] 07-21-2024 Miscellaneous Notes Patient notified of results and provider's instructions. Patient verbalizes understanding. Lisa Aparicio RN Please inform patient that her TSH is slightly low/suppressed but her free t4 is back up into a normal range. Her free t3 is going to massively vary since she is on armor thyroid hormone with is at least 75% t3 and only 25% t4 hormone in this tablet Preet Farrar DO documented in this encounter [facility] 07-21-2024 Telephone encounter Note Patient calls back in. Patient is concerned about her blood sugars being elevated. Patient's fasting blood sugar today was 196. Patient states that she does not eat a lot of carbs. Patient eats gluten free bread in am which is 16.5 grams of carbs. Patient states that she eats mostly protein. Patient takes 16 units of Lantus at HS, Januvia 100 mg, and glimepiride 2 mg. Patient is having DNC done on 07/26/2024. [facility] clearance form on 07/19/2024. This is on provider's desk. Patient is very worried about her blood sugars. [facility] 07-20-2024 Telephone encounter Note Please inform patient that her TSH is slightly low/suppressed but her free t4 is back up into a normal range. Her free t3 is going to massively vary since she is on armor thyroid hormone with is at least 75% t3 and only 25% t4 hormone in this tablet Preet Farrar DO [facility] 07-19-2024 Telephone encounter Note Form on Dr. Farrar's desk [facility] 07-19-2024 Telephone encounter Note Lali with [facility] called in and reports she had faxed over the surgical clearance form on 07/15/24. I let them know it wasn't charted that they had received it, so she is going to send it again. Pt is going to have a DNC on 07/26/24, please fill out and fax back. Faxed recent thyroid labs and labs from April to [phone]. Let them know the other recent labs were external, and they would have to get them from [facility]. [facility] 07-15-2024 Telephone encounter Note Blood Sugar results brought in by patient.Placed on Dr. Farrar desk. [facility] 06-17-2024 Telephone encounter Note Patient reports [facility] ER prescribed her pantoprazole 40 mg daily, about a month ago, and she needs refills, only has 5 pills left. States she forgot to tell pcp about this at her recent appt. Last ov with pcp: 06-14-24 Next ov: 10-07-24 [facility] 06-17-2024 Miscellaneous Notes Patient reports [facility] ER prescribed her pantoprazole 40 mg daily, about a month ago, and she needs refills, only has 5 pills left. States she forgot to tell pcp about this at her recent appt. Last ov with pcp: 06-14-24 Next ov: 10-07-24 documented in this encounter [facility] 06-15-2024 Telephone encounter Note Patient calling asking to have another pen needle rx, she called pharmacy since other rx was causing so much bruising for her. Pending new rx to file to [facility] pharmacy. Please advise The patient has been identified by name and date of : Yes Caregiver verified no other encounters exist for this prescription request: Yes Caregiver confirmed with patient/requestor that no other refills are due, in the near future, with this provider at this time: Yes The last office visit in the department: 06/14/2024 Does the patient have a future office visit with this provider/department: Yes 10/07/2024 Requested Prescriptions Pending Prescriptions Disp Refills Insulin Witt, Disposable, (BD ULTRA-FINE MARIA T PEN NEEDLE) 32 gauge x 5/32 100 Each 11 Sig: Use one needle for each dose. 1/day. Kerry Nevarez LPN June 15, 2024 9:58 AM [facility] 06-15-2024 Miscellaneous Notes Patient calling asking to have another pen needle rx, she called pharmacy since other rx was causing so much bruising for her. Pending new rx to file to [facility]. Please advise The patient has been identified by name and date of : Yes Caregiver verified no other encounters exist for this prescription request: Yes Caregiver confirmed with patient/requestor that no other refills are due, in the near future, with this provider at this time: Yes The last office visit in the department: 06/14/2024 Does the patient have a future office visit with this provider/department: Yes 10/07/2024 Requested Prescriptions Pending Prescriptions Disp Refills Insulin Witt, Disposable, (BD ULTRA-FINE MARIA T PEN NEEDLE) 32 gauge x 5/32 100 Each 11 Sig: Use one needle for each dose. 1/day. Kerry Nevarez LPN June 15, 2024 9:58 AM documented in this encounter [facility] 06-14-2024 Note HNO ID: [id number] Author: PREET FARRAR, DO Service: ? Author Type: Physician Type: Progress Notes Filed: 06/14/2024 16:37 Note Text: Patient presents with: F/U 3 Month HPI: Tia Blanco is a 68 year old female who presents to the office today for review of health conditions. Concerns today: 90 day glucose average is 163 30 day glucose average Has cut back on her glucose rich foods such as starches and fruits and simple carbs such as potatoes and breads Recently incidentally found to have a thickened endometrial lining. Has been seen by [facility] and had EMB and will be having a consult with Dr. Froylan Farnsworth [facility] on 07/07 to potentially schedule MEREDITH. She states that she wants to change her insulin needle rx since this is causing her bruising Ms. Blanco has past history of diabetes. Since our last visit she denies excessive thirst or increased frequency of urination, chest pain or dyspnea , new or unusual visual symptoms, and low sugar/hypoglycemic reactions. Depression- no. Follows a diabetic diet some of the time. She is compliant with medication(s) and is tolerating med(s) without any side effects. She reports checking her glucose on a once a day schedule with sugars in the <150 range. Patient's last HgA1C was Hemoglobin A1C (%) Date Value 05/17/2024 6.9 11/16/2023 6.4 11/13/2021 6.3 04/16/2021 6.3 Hemoglobin A1C (POCT) (%) Date Value 01/06/2024 6.5 ) Last Ophthalmology exam was within the past 12 months Ms. Blanco reports history of hyperlipidemia. Current therapy includes atorvastatin (Lipitor) 80 mg. Denies side effects of muscle weakness or achiness. Her most recent lipid panels are reviewed. Cholesterol, Total (mg/dL) Date Value 05/17/2024 115 04/16/2021 193 HDL Cholesterol (mg/dL) Date Value 05/17/2024 71 04/16/2021 58 LDL Cholesterol (mg/dL) Date Value 05/17/2024 28 04/16/2021 91 Triglyceride (mg/dL) Date Value 05/17/2024 79 04/16/2021 222 Ms. Blanco indicates a history of hypertension and states that she is feeling well and denies any symptoms referable to elevated blood pressure. Specifically denies headache, chest pain, palpitations, dyspnea, and peripheral edema. Patient denies any side effects of her medication(s) and is compliant with their regimen. Last 3 Encounter BP Readings: Date: BP: 06/14/2024 136/70 05/25/2024 106/72 05/10/2024 138/78 She watches her diet for sodium, low fat and low cholesterol some of the time. She does not check BP's generally. Tia gets sporadic irregular exercise. PAST MEDICAL HISTORY Diagnosis Date Aortic stenosis, moderate 08/2019 Benign hypertensive heart disease Celiac disease Diabetes mellitus without mention of complication Diabetes mellitus Fatty liver Grave's disease IBS (irritable bowel syndrome) Medical marijuana use has card Ulcerative colitis, unspecified Vitamin D deficiency PAST SURGICAL HISTORY Procedure Laterality Date COLONOSCOPY FLX DX W/COLLJ SPEC WHEN PFRMD 09/09/2013 Colonoscopy ESOPHAGOGASTRODUODENOSCOPY TRANSORAL DIAGNOSTIC 09/09/2013 EGD INFUSE RADIOACTIVE MATERIALS Iodine ablation for Grave's disease LAP UMBILICAL HERNIA REPAIR 02/17/2000 Lap umbilical hernia with a 19cm mesh LAPAROSCOPY SURG CHOLECYSTECTOMY 03/01/2007 Lap Mary with visiport RUQ insertion LIG/TRNSXJ FLP TUBE ABDL/VAG APPR UNI/BI Tubal ligation Social History Tobacco Use Smoking status: Former Current packs/day: 0.00 Average packs/day: 0.5 packs/day for 20.0 years (10.0 ttl pk-yrs) Types: Cigarettes Start date: 11/02/2002 Quit date: 11/02/2022 Years since quittin.6 Smokeless tobacco: Never Substance Use Topics Alcohol use: Yes Drug use: Yes Types: Marijuana FAMILY HISTORY Problem Relation Age of Onset Cervical Cancer Sister Diabetes Father Psychiatry Mother Hypertension Father Heart Mother Heart Father Alzheimer's Disease Mother Breast Cancer Sister Allergies: ALLERGIES Allergen Reactions Asa [Salicylates] Hives, GI Upset As a child Gluten Intolerance Metformin GI Upset, Itching Prednisone Itching Sulfa (Sulfonamide * Rash Current Meds: [START ON 06/15/2024] ARMOUR THYROID 30 mg tablet Take 1 tablet by mouth every Thursday, Thursday, and Thursday. In the morning. (Take this is addition to the 120 mg armor thyroid) insulin glargine (LANTUS SOLOSTAR U-100 INSULIN) 100 unit/mL (3 mL) Inject 14 Units subcutaneously daily at bedtime. atorvastatin (LIPITOR) 80 mg tablet Take 1 tablet by mouth once daily. clopidogrel (PLAVIX) 75 mg tablet Take 1 tablet by mouth once daily. Insulin Witt, Disposable, (PEN NEEDLE) 29 gauge x 1/2 Use one needle per dose. 1 per day glimepiride (AMARYL) 2 mg tablet Take 1 tablet by mouth two times a day with meals. SITagliptin phosphate (JANUVIA) 100 mg tablet Take 1 tablet by mouth once daily. carvedilol (COREG) 6.25 mg tablet Take 1 tablet by mouth two times a day with (more content not included)... [facility] 06-14-2024 History of Present illness Narrative Patient presents with: F/U 3 Month HPI: Tia Blanco is a 68 year old female who presents to the office today for review of health conditions. Concerns today: 90 day glucose average is 163 30 day glucose average Has cut back on her glucose rich foods such as starches and fruits and simple carbs such as potatoes and breads Recently incidentally found to have a thickened endometrial lining. Has been seen by [facility] and had EMB and will be having a consult with Dr. Froylan Farnsworth [facility] on 07/07 to potentially schedule MEREDITH. She states that she wants to change her insulin needle rx since this is causing her bruising Ms. Blanco has past history of diabetes. Since our last visit she denies excessive thirst or increased frequency of urination, chest pain or dyspnea , new or unusual visual symptoms, and low sugar/hypoglycemic reactions. Depression- no. Follows a diabetic diet some of the time. She is compliant with medication(s) and is tolerating med(s) without any side effects. She reports checking her glucose on a once a day schedule with sugars in the <150 range. Patient's last HgA1C was Hemoglobin A1C (%) Date Value 05/17/2024 6.9 11/16/2023 6.4 11/13/2021 6.3 04/16/2021 6.3 Hemoglobin A1C (POCT) (%) Date Value 01/06/2024 6.5 ) Last Ophthalmology exam was within the past 12 months Ms. Blanco reports history of hyperlipidemia. Current therapy includes atorvastatin (Lipitor) 80 mg. Denies side effects of muscle weakness or achiness. Her most recent lipid panels are reviewed. Cholesterol, Total (mg/dL) Date Value 05/17/2024 115 04/16/2021 193 HDL Cholesterol (mg/dL) Date Value 05/17/2024 71 04/16/2021 58 LDL Cholesterol (mg/dL) Date Value 05/17/2024 28 04/16/2021 91 Triglyceride (mg/dL) Date Value 05/17/2024 79 04/16/2021 222 Ms. Blanco indicates a history of hypertension and states that she is feeling well and denies any symptoms referable to elevated blood pressure. Specifically denies headache, chest pain, palpitations, dyspnea, and peripheral edema. Patient denies any side effects of her medication(s) and is compliant with their regimen. Last 3 Encounter BP Readings: Date: BP: 06/14/2024 136/70 05/25/2024 106/72 05/10/2024 138/78 She watches her diet for sodium, low fat and low cholesterol some of the time. She does not check BP's generally. Tia gets sporadic irregular exercise. PAST MEDICAL HISTORY Diagnosis Date Aortic stenosis, moderate 08/2019 Benign hypertensive heart disease Celiac disease Diabetes mellitus without mention of complication Diabetes mellitus Fatty liver Grave's disease IBS (irritable bowel syndrome) Medical marijuana use has card Ulcerative colitis, unspecified Vitamin D deficiency PAST SURGICAL HISTORY Procedure Laterality Date COLONOSCOPY FLX DX W/COLLJ SPEC WHEN PFRMD 09/09/2013 Colonoscopy ESOPHAGOGASTRODUODENOSCOPY TRANSORAL DIAGNOSTIC 09/09/2013 EGD INFUSE RADIOACTIVE MATERIALS Iodine ablation for Grave's disease LAP UMBILICAL HERNIA REPAIR 02/17/2000 Lap umbilical hernia with a 19cm mesh LAPAROSCOPY SURG CHOLECYSTECTOMY 03/01/2007 Lap Mary with visiport RUQ insertion LIG/TRNSXJ FLP TUBE ABDL/VAG APPR UNI/BI Tubal ligation Social History Tobacco Use Smoking status: Former Current packs/day: 0.00 Average packs/day: 0.5 packs/day for 20.0 years (10.0 ttl pk-yrs) Types: Cigarettes Start date: 11/02/2002 Quit date: 11/02/2022 Years since quittin.6 Smokeless tobacco: Never Substance Use Topics Alcohol use: Yes Drug use: Yes Types: Marijuana FAMILY HISTORY Problem Relation Age of Onset Cervical Cancer Sister Diabetes Father Psychiatry Mother Hypertension Father Heart Mother Heart Father Alzheimer's Disease Mother Breast Cancer Sister Allergies: ALLERGIES Allergen Reactions Asa [Salicylates] Hives, GI Upset As a child Gluten Intolerance Metformin GI Upset, Itching Prednisone Itching Sulfa (Sulfonamide * Rash Current Meds: [START ON 06/15/2024] ARMOUR THYROID 30 mg tablet Take 1 tablet by mouth every Thursday, Thursday, and Thursday. In the morning. (Take this is addition to the 120 mg armor thyroid) insulin glargine (LANTUS SOLOSTAR U-100 INSULIN) 100 unit/mL (3 mL) Inject 14 Units subcutaneously daily at bedtime. atorvastatin (LIPITOR) 80 mg tablet Take 1 tablet by mouth once daily. clopidogrel (PLAVIX) 75 mg tablet Take 1 tablet by mouth once daily. Insulin Witt, Disposable, (PEN NEEDLE) 29 gauge x 1/2 Use one needle per dose. 1 per day glimepiride (AMARYL) 2 mg tablet Take 1 tablet by mouth two times a day with meals. SITagliptin phosphate (JANUVIA) 100 mg tablet Take 1 tablet by mouth once daily. carvedilol (COREG) 6.25 mg tablet Take 1 tablet by mouth two times a day with meals. ergocalciferol 50,000 unit capsule (VITAMIN D2, DRISDOL) Take 1 capsule by mouth two times a week. ARMOUR THYROID 120 mg tablet Take 1 tablet PO daily in AM (Patient taking differently: Take 120 mg by mouth once daily.) blood sugar diagnostic (BLOOD GLUCOSE TEST) test strip Test blood sugar(s) 2 times daily. Dx: Type 2 DM - Uncontrolled . Insulin: No spironolactone (ALDACTONE) 25 mg tablet Take 25 mg by mouth once daily. flash glucose scanning reader (FREESTYLE TARA 2 READER) 1 Device as directed. Type 2 diabetes uncontrolled, no insulin (Patient not taking: Reported on 01/06/2024) blood sugar diagnostic (FREESTYLE LITE STRIPS) test strip Test blood sugar(s) 8 times daily. Dx: E11.65. Insulin: No ELDERBERRY FRUIT ORAL Take 1,000 mg by mouth once daily. ondansetron orally disintegrating (ZOFRAN ODT) 4 mg disintegrating tablet Take 1 tablet by mouth every 8 hours as needed for nausea/vomiting. Blood Pressure Monitor (BLOOD PRESSURE KIT) 1 Each as directed. Dx: essential hypertension Lancets lancets Test blood sugar(s) 2 times daily. Dx: Type 2 DM - Uncontrolled E11.65 Insulin: No Review of Systems: The remainder of the review of systems is negative. PE: 06/14/24 1418 BP: 136/70 Pulse: 76 Resp: 16 Temp: 36.7 C (98 F) TempSrc: Left Tympanic Weight: 78 kg (171 lb 15.3 oz) Gen: A&O, NAD, non-toxic appearing, Pleasant, cooperative HEENT: NT/AC, PERRLA, EOMs intact b/l, nares clear and patent b/l, pharynx without erythema, exudate or lesions. Uvula midline. MMM, EACs without erythema or debris. TMs pearly zamarripa with intact landmarks b/l. Neck: supple, No cervical LAD, no thyromegaly, no carotid bruits CV: RRR, normal S1 and S2, no murmurs, no gallops, no rubs, Pulses 2+ and symmetric in UE and LE b/l Lungs: normal respiratory effort, CTA b/l, no wheezing or rhonchi or rales Abd: soft, obese, NT, ND, +BS, no hepatosplenomegaly MS: FROM all 4 extremities- arthritis changes. Neuro: CN II-XII intact b/l, strength 5/5 b/l UE and LE, DTRs 2/4 UE and LE, sensation intact. Skin: warm, dry, intact, No rashes or lesions on exposed skin. Foot exam: Monofilament wnl on right and left feet. No edema, normal pulses ASSESSMENT/PLAN: 1. Uncontrolled type 2 diabetes mellitus with hyperglycemia (HCC) - ICD9: 250.02, ICD10: E11.65 (primary diagnosis) - Uncontrolled - Increase Insulin glargine (Lantus/Basaglar/Toujeo) - LANTUS SOLOSTAR U-100 INSULIN 100 UNIT/ML (3 ML) SUBCUTANEOUS PEN 2. Acquired hypothyroidism - ICD9: 244.9, ICD10: E03.9 - Instructed patient on importance of taking on an empty stomach either first thing in the morning or at bedtime. Increase armour thyroid medication with 30 mg on Mon, Wed, Fri - ARMOUR THYROID 30 MG TABLET - THYROID STIMULATING HORMONE - T4 FREE/FREE THYROXINE - T3, FREE 3. Essential hypertension, benign - ICD9: 401.1, ICD10: I10 - Controlled - Continue current medications - Recommend home blood pressure monitoring, to bring results to next visit - Encouraged sodium restriction, DASH or Mediterranean diet - Recommend regular aerobic exercise 4. Vitamin B12 deficiency - ICD9: 266.2, ICD10: E53.8 Continue supplement 5. Hyperlipidemia, mixed - ICD9: 272.2, ICD10: E78.2 - Control undetermined, due for labs - Continue current medications - Counseled on healthy diet and regular exercise 6. Tobacco use disorder - ICD9: 305.1, ICD10: F17.200 - Cessation encouraged. - Physiologic and physical aspects of tobacco addiction as well as strategies for quitting were discussed. - Counseling was given focusing on the harmful effects of this addiction especially given the patient's medical condition(s) which will be worsened because of the chemicals in tobacco. 7. Vitamin D deficiency - ICD9: 268.9, ICD10: E55.9 Continue supplement Preet Farrar DO To ER if develops chest pain, shortness of breath, or severe worsening of symptoms. Discussed risks, benefits, alternatives, and potential side effects of medications. Patient expressed understanding and agreed with the plan. Preet Farrar DO [address] [place] [address] documented in this encounter [facility] 05-25-2024 History of Present illness Narrative 05/25/2024 Patient presents with: ER F/U: 05/22/2024 [facility] for left lower quadrant pain SUBJECTIVE: This is a 68 year old that is here today for Above Complaints. HOSPITAL/ER FOLLOW UP: Reason for visit: abdominal pain Which facility: [facility] Date of visit: 05/22/2024 Diagnosis: endometrial thickening Testing done: Blood work, CT ABD/PEL, urine Treatment given: pantoprazole and Zofran for epigastric discomfort Reports last night was in terrible pain. Zofran seemed to help. Blood sugar was elevated last night at 242 this AM 177. Pain still in LLQ but seems to be mostly at night which she describes as sharp. Denies current pain, however she is worried about pain becoming bad again this evening. Bowels have been moving normally. Did make her appointment with gastro on 06/06/2024 as recommend in ER since she has a hx of ulcerative colitis. Denies abnormal vaginal bleeding, nausea, melana, hematochezia, or constipation ER record reviewed PAST MEDICAL HISTORY 08/2019: Aortic stenosis, moderate No date: Benign hypertensive heart disease No date: Celiac disease No date: Diabetes mellitus without mention of complication Comment: Diabetes mellitus No date: Fatty liver No date: Grave's disease No date: IBS (irritable bowel syndrome) No date: Medical marijuana use Comment: has card No date: Ulcerative colitis, unspecified No date: Vitamin D deficiency ALLERGIES Asa [Salicylates], Gluten, Metformin, Prednisone, and Sulfa (Sulfonamide Antibiotics) MEDICATIONS Current Outpatient Medications Medication Sig insulin glargine (LANTUS SOLOSTAR U-100 INSULIN) 100 unit/mL (3 mL) Inject 14 Units subcutaneously daily at bedtime. atorvastatin (LIPITOR) 80 mg tablet Take 1 tablet by mouth once daily. clopidogrel (PLAVIX) 75 mg tablet Take 1 tablet by mouth once daily. Insulin Witt, Disposable, (PEN NEEDLE) 29 gauge x 1/2 Use one needle per dose. 1 per day glimepiride (AMARYL) 2 mg tablet Take 1 tablet by mouth two times a day with meals. SITagliptin phosphate (JANUVIA) 100 mg tablet Take 1 tablet by mouth once daily. carvedilol (COREG) 6.25 mg tablet Take 1 tablet by mouth two times a day with meals. ergocalciferol 50,000 unit capsule (VITAMIN D2, DRISDOL) Take 1 capsule by mouth two times a week. ARMOUR THYROID 120 mg tablet Take 1 tablet PO daily in AM (Patient taking differently: Take 120 mg by mouth once daily.) blood sugar diagnostic (BLOOD GLUCOSE TEST) test strip Test blood sugar(s) 2 times daily. Dx: Type 2 DM - Uncontrolled E11.65 Insulin: No spironolactone (ALDACTONE) 25 mg tablet Take 25 mg by mouth once daily. flash glucose scanning reader (FREESTYLE TARA 2 READER) 1 Device as directed. Type 2 diabetes uncontrolled, no insulin (Patient not taking: Reported on 01/06/2024) blood sugar diagnostic (FREESTYLE LITE STRIPS) test strip Test blood sugar(s) 8 times daily. Dx: E11.65. Insulin: No ELDERBERRY FRUIT ORAL Take 1,000 mg by mouth once daily. ondansetron orally disintegrating (ZOFRAN ODT) 4 mg disintegrating tablet Take 1 tablet by mouth every 8 hours as needed for nausea/vomiting. Blood Pressure Monitor (BLOOD PRESSURE KIT) 1 Each as directed. Dx: essential hypertension Lancets lancets Test blood sugar(s) 2 times daily. Dx: Type 2 DM - Uncontrolled E11.65 Insulin: No No current facility-administered medications for this visit. Medications and allergies reviewed by this provider. SOCIAL HISTORY Social History Tobacco Use Smoking status: Former Current packs/day: 0.00 Average packs/day: 0.5 packs/day for 20.0 years (10.0 ttl pk-yrs) Types: Cigarettes Start date: 11/02/2002 Quit date: 11/02/2022 Years since quittin.5 Smokeless tobacco: Never Substance Use Topics Alcohol use: Yes Drug use: Yes Types: Marijuana REVIEW OF SYSTEMS All other reviewed and negative other than HPI. OBJECTIVE: BP 106/72 Pulse 80 Resp 18 Wt 76.4 kg (168 lb 6.9 oz) SpO2 93% BMI 32.89 kg/m . Vital signs reviewed by this provider. APPEARANCE Well appearing, alert, in no acute distress, well-hydrated, well nourished. EYES conjunctiva and sclera normal. HEART RRR with normal S1 and S2, no murmurs, no gallops, no JVD appreciated LUNG clear to auscultation. No wheezes, rhonchi or rales ABDOMEN bowel sounds normoactive, no bruits, soft, non-tender, non-distended, no tenderness to palpation. No rebound tenderness or guarding SKIN Skin color, texture, turgor normal, no suspicious rashes or lesions to exposed skin Depression Screening Never done Mammogram Screening due on 11/16/2014 Colorectal Cancer Screening due on 09/09/2023 Diabetic Foot Exam due on 12/11/2023 BP Controlled (<130/80) due on 12/11/2023 RSV Vaccine(1 - 1-dose 60+ series) due on 09/14/2024 DTaP,Tdap,Td Vaccine(1 - Tdap) due on 11/13/2024 Shingrix Vaccine(1 of 2) due on 11/13/2024 Covid-19 Vaccine(1 - 2022- season) due on 11/13/2024 Pneumococcal Vaccine: 65+(1 of 2 - PCV) due on 11/13/2024 Influenza Vaccine(1) due on 05/29/2024 Urine Albumin:Creatinine Ratio due on 11/13/2024 HbA1C due on 11/17/2024 Dilated Retinal Exam due on 12/08/2024 Annual PCP Team Chronic Disease Visit due on 03/21/2025 LDL Cholesterol due on 05/17/2025 Bone Density Screening Completed Hepatitis C Screening Completed Cervical Cancer Screening Discontinued Advance Directive Discussion Discontinued ASSESSMENT/PLAN: 1. Thickened endometrium - ICD9: 793.5, ICD10: R93.89 (primary diagnosis) - unsure if this is the cause of her pain - consider endometrial carcinoma, submucosal fibroid vs endometrial polyp - no red flag symptoms or exam findings - red flag symptoms or exam findings - CONSULT TO GYNECOLOGY 2. LLQ pain - ICD9: 789.04, ICD10: R10.32 - plan as above - no other concerning findings from ER work-up - CONSULT TO GYNECOLOGY - TRAMADOL 50 MG TABLET- discussed this medication is a controlled substance and should be used sparingly and can mask pain, if pain becomes severe needs to go back to ER- will only prescribe a short course. Discussed can cause drowsiness so she should not drive or operate heavy machinery while taking. May cause constipation so recommend OTC stool softener and staying well hydrated, verbalizes understanding PDMP website checked and validated. All prescriptions have been APPROPRIATELY filled. No suspicious activity was identified. 05/25/2024 by Catalina Young APRN.CNP - follow-up with [facility] and PCP Catalina Young APRN.TECHNICAL COMMUNICATOR Prescription instructions reviewed with patient as applicable. Patient advised if symptoms do not improve or if symptoms worsen sooner, to contact their primary care physician. Potential red flag symptoms discussed with the patient. Reviewed appropriate action plan to take if red flag symptoms occur. Patient agreeable to treatment plan. Medical Decision Making: Problems: Moderate: New problem with uncertain prognosis Risk: Moderate: Drug management Medical Decision Making Level: 4 - Moderate documented in this encounter [facility] 05-25-2024 Note HNO ID: [id number] Author: CATALINA YOUNG APRN.CNP Service: ? Author Type: Nurse Practitioner Type: Progress Notes Filed: 05/25/2024 15:19 Note Text: 05/25/2024 Patient presents with: ER F/U: 05/22/2024 [facility] for left lower quadrant pain SUBJECTIVE: This is a 68 year old that is here today for Above Complaints. HOSPITAL/ER FOLLOW UP: Reason for visit: abdominal pain Which facility: [facility] Date of visit: 05/22/2024 Diagnosis: endometrial thickening Testing done: Blood work, CT ABD/PEL, urine Treatment given: pantoprazole and Zofran for epigastric discomfort Reports last night was in terrible pain. Zofran seemed to help. Blood sugar was elevated last night at 242 this AM 177. Pain still in LLQ but seems to be mostly at night which she describes as sharp. Denies current pain, however she is worried about pain becoming bad again this evening. Bowels have been moving normally. Did make her appointment with gastro on 06/06/2024 as recommend in ER since she has a hx of ulcerative colitis. Denies abnormal vaginal bleeding, nausea, melana, hematochezia, or constipation ER record reviewed PAST MEDICAL HISTORY 08/2019: Aortic stenosis, moderate No date: Benign hypertensive heart disease No date: Celiac disease No date: Diabetes mellitus without mention of complication Comment: Diabetes mellitus No date: Fatty liver No date: Grave's disease No date: IBS (irritable bowel syndrome) No date: Medical marijuana use Comment: has card No date: Ulcerative colitis, unspecified No date: Vitamin D deficiency ALLERGIES Asa [Salicylates], Gluten, Metformin, Prednisone, and Sulfa (Sulfonamide Antibiotics) MEDICATIONS Current Outpatient Medications Medication Sig insulin glargine (LANTUS SOLOSTAR U-100 INSULIN) 100 unit/mL (3 mL) Inject 14 Units subcutaneously daily at bedtime. atorvastatin (LIPITOR) 80 mg tablet Take 1 tablet by mouth once daily. clopidogrel (PLAVIX) 75 mg tablet Take 1 tablet by mouth once daily. Insulin Witt, Disposable, (PEN NEEDLE) 29 gauge x 1/2 Use one needle per dose. 1 per day glimepiride (AMARYL) 2 mg tablet Take 1 tablet by mouth two times a day with meals. SITagliptin phosphate (JANUVIA) 100 mg tablet Take 1 tablet by mouth once daily. carvedilol (COREG) 6.25 mg tablet Take 1 tablet by mouth two times a day with meals. ergocalciferol 50,000 unit capsule (VITAMIN D2, DRISDOL) Take 1 capsule by mouth two times a week. ARMOUR THYROID 120 mg tablet Take 1 tablet PO daily in AM (Patient taking differently: Take 120 mg by mouth once daily.) blood sugar diagnostic (BLOOD GLUCOSE TEST) test strip Test blood sugar(s) 2 times daily. Dx: Type 2 DM - Uncontrolled E11.65 Insulin: No spironolactone (ALDACTONE) 25 mg tablet Take 25 mg by mouth once daily. flash glucose scanning reader (FREESTYLE TARA 2 READER) 1 Device as directed. Type 2 diabetes uncontrolled, no insulin (Patient not taking: Reported on 01/06/2024) blood sugar diagnostic (FREESTYLE LITE STRIPS) test strip Test blood sugar(s) 8 times daily. Dx: E11.65. Insulin: No ELDERBERRY FRUIT ORAL Take 1,000 mg by mouth once daily. ondansetron orally disintegrating (ZOFRAN ODT) 4 mg disintegrating tablet Take 1 tablet by mouth every 8 hours as needed for nausea/vomiting. Blood Pressure Monitor (BLOOD PRESSURE KIT) 1 Each as directed. Dx: essential hypertension Lancets lancets Test blood sugar(s) 2 times daily. Dx: Type 2 DM - Uncontrolled E11.65 Insulin: No No current facility-administered medications for this visit. Medications and allergies reviewed by this provider. SOCIAL HISTORY Social History Tobacco Use Smoking status: Former Current packs/day: 0.00 Average packs/day: 0.5 packs/day for 20.0 years (10.0 ttl pk-yrs) Types: Cigarettes Start date: 11/02/2002 Quit date: 11/02/2022 Years since quittin.5 Smokeless tobacco: Never Substance Use Topics Alcohol use: Yes Drug use: Yes Types: Marijuana REVIEW OF SYSTEMS All other reviewed and negative other than HPI. OBJECTIVE: BP 106/72 Pulse 80 Resp 18 Wt 76.4 kg (168 lb 6.9 oz) SpO2 93% BMI 32.89 kg/m? . Vital signs reviewed by this provider. APPEARANCE Well appearing, alert, in no acute distress, well-hydrated, well nourished. EYES conjunctiva and sclera normal. HEART RRR with normal S1 and S2, no murmurs, no gallops, no JVD appreciated LUNG clear to auscultation. No wheezes, rhonchi or rales ABDOMEN bowel sounds normoactive, no bruits, soft, non-tender, non-distended, no tenderness to palpation. No rebound tenderness or guarding SKIN Skin color, texture, turgor normal, no suspicious rashes or lesions to exposed skin Depression Screening Never done Mammogram Screening due on 11/16/2014 Colorectal Cancer Screening due on 09/09/2023 Diabetic Foot Exam due on 12/11/2023 BP Controlled (<130/80) due on 12/11/2023 RSV Vaccine(1 - 1-dose 60+ series) due on 09/14/2024 DTaP,Tdap,Td Vaccine(1 - Td (more content not included)... [facility] 05-23-2024 Telephone encounter Note The patient has been identified by name and date of : Yes Caregiver verified no other encounters exist for this prescription request: Yes Caregiver confirmed with patient/requestor that no other refills are due, in the near future, with this provider at this time: Yes The last office visit in the department: 03/21/2024 Does the patient have a future office visit with this provider/department: Yes 05/25/2024 Requested Prescriptions Pending Prescriptions Disp Refills atorvastatin (LIPITOR) 80 mg tablet 90 tablet 1 Sig: Take 1 tablet by mouth once daily. clopidogrel (PLAVIX) 75 mg tablet 90 tablet 1 Sig: Take 1 tablet by mouth once daily. Suzanna Coffey RN May 23, 2024 1:16 PM [facility] 05-23-2024 Miscellaneous Notes The patient has been identified by name and date of : Yes Caregiver verified no other encounters exist for this prescription request: Yes Caregiver confirmed with patient/requestor that no other refills are due, in the near future, with this provider at this time: Yes The last office visit in the department: 03/21/2024 Does the patient have a future office visit with this provider/department: Yes 05/25/2024 Requested Prescriptions Pending Prescriptions Disp Refills atorvastatin (LIPITOR) 80 mg tablet 90 tablet 1 Sig: Take 1 tablet by mouth once daily. clopidogrel (PLAVIX) 75 mg tablet 90 tablet 1 Sig: Take 1 tablet by mouth once daily. Suzanna Coffey RN May 23, 2024 1:16 PM documented in this encounter [facility] 05-23-2024 Telephone encounter Note Pt called in and was seen in the [facility] ER last night 05-22-24 for left side abdominal pain. Pt had a CT done. Showed thickened endometrial lining of 1/4 cm no other acute findings. pt's provider/team not available. Pt scheduled with provider. Robert Ulloa LPN [facility] 05-23-2024 Miscellaneous Notes Pt called in and was seen in the [facility] ER last night 05-22-24 for left side abdominal pain. Pt had a CT done. Showed thickened endometrial lining of 1/4 cm no other acute findings. pt's provider/team not available. Pt scheduled with provider. Robert Ulloa LPN documented in this encounter [facility] 05-10-2024 Instructions Bean Isaac MD - 05/10/2024 2:25 PM EDT Please continue the same dose of medication for now- please bring log next time documented in this encounter [facility] 05-10-2024 Note HNO ID: [id number] Author: BEAN ISAAC MD Service: ? Author Type: Physician Type: Progress Notes Filed: 05/11/2024 11:16 Note Text: [facility] Initial Clinic Visit Note Referred by: PCP- Preet Farrar DO History of present illness: Tia Blanco is a 68 year old female here today for evaluation of Type 2 DM, she also has a PMH of HTN, HLD, CVA, Obesity class I, Hypothyroidism, Celiac disease. She reports of a recent back surgery ending up in paralysis biut now she is walking and back onto exercise -Initially diagnosed: 15 years ago. On regular blood work -Length of time on oral medications before switching to insulin: 13 years, until Ozempic, 15 years until lantus -Duration of insulin use: 6 weeks Complications: Cardiovascular -- Yes HTN, HLD, in 2021 she had a Stroke Statin Use -- Yes Retinopathy -- No Last JUAN/Retina Eval: she has an appt next month Nephropathy -- Yes NICOLE/ARB Use -- Yes Polyneuropathy -- No Foot Exam: last time was 02/2024 Obesity -- Yes Other -- No -Family history of diabetes mellitus: Father, older sister, both had type 1 and both Personal history of DKA or HHS-- No Personal history of pancreatitis-- No History of alcohol consumption--No Family history of thyroid cancer-- No Personal history of Urinary tract infections -- None is the recent past . Diabetes Medications -Current regimen: lantus 12 units daily in the morning (started using insulin 6 weeks ago), Sitagliptin 100 mg daily, glimepiride 2 mg daily -Misses doses: None -Adverse medication effects: no -Rotating injection sites: yes She was on Ozempic 1 mg for more than 1 year, when it was increased to 2 mg she was hospitalized due to vomiting, diarrhea and was diagnosed with Gastroparesis assumed to be de to the medication -Previously Used DM Meds: Yes Metformin - GI upset Jardiance- Yeast infection . Blood sugars -Self monitoring of blood sugar via fingerstick: 4 x daily Insurance did not approve CGM. Reports she submits her BG to Dr. Farrar every 1 to 2 weeks, and has submitted today as well- but telephone encounter note mentions she submitted her BP readings -Brought blood glucose log for review: yes, in phone -BG log reviewed: --Fastins-170s --Prelunch: 110-150 --Predinner: 120s-140s --Bedtime: 150s-170s She denied any hyperglycemic symptoms today. . Hypoglycemia -Hypoglycemic episodes: denied any lows, lower than 89 -Frequency and timing of hypoglycemia: n/a -Hypoglycemia awareness: n/a Lifestyle -Exercise: 30 mins on tread mill daily -Diet: Breakfast: 3 eggs, 1 slice of gluten free bread Lunch: yogurt with 3 gms of carbs, either cheese or chicken sausage, half orange or small cup of fruit Dinner: salmon, chicken strips with 3 gms of carbs, broccoli or brussels sprouts . Blood pressure -Today BP 138/78 -BP cuff at home: -Current antihypertensive therapy: carvedilol 6.25 mg BID, Spironolactone 25 mg daily . Lipids -she is on atorvastatin high dose for hx of stroke in the past ROS: SYSTEMIC: Denies fatigue, malaise, energy, Weight has been stable, heat/cold intolerance, polydipsia EYES: Denies blurring of vision, diplopia, pain/discomfort, excessive tearing, swelling of eye lids, bulging, redness, dryness, NECK: Denies goiter, lump, pain/discomfort, dysphagia, hoarseness, sore thorat RESPIRATORY: Denies dyspnea at rest/with exertion, orthopnea cough, pleuritic chest pain, snoring, apnea episodes CARDIOVASCULAR: Chest pain, palpitations, irregular heart beats GASTRO-INTESTINAL:Denies Nausea, vomiting, abdominal pain, hyperdefecation, rectal bleeding NEUROLOGICAL: Denies dizziness, lightheadedness, weakness, cramping, numbness/tingling of extremities MUSCULOSKELETAL: Denies joint pain, stiffness, swelling, cramping or weakness. GENITOURINARY: Denies polyuria, recurrent UTI/yeast infections SKIN: Denies dryness, brittle nails, hair loss, alopecia, excessive sweating, flushing, darkening of skin PSYCHIATRIC: Denies anxiety, depression, panic attacks, irritability, mood swings Past Medical History PAST MEDICAL HISTORY 08/2019: Aortic stenosis, moderate No date: Benign hypertensive heart disease No date: Celiac disease No date: Diabetes mellitus without mention of complication Comment: Diabetes mellitus No date: Fatty liver No date: Grave's disease No date: IBS (irritable bowel syndrome) No date: Medical marijuana use Comment: has card No date: Ulcerative colitis, unspecified No date: Vitamin D deficiency Past Surgical History PAST SURGICAL HISTORY 09/09/2013: COLONOSCOPY FLX DX W/COLLJ SPEC WHEN PFRMD Comment: Colonoscopy 09/09/2013: ESOPHAGOGASTRODUODENOSCOPY TRANSORAL DIAGNOSTIC Comment: EGD No date: INFUSE RADIOACTIVE MATERIALS Comment: Iodine ablation for Grave's disease 02/17/2000: LAP UMBILICAL HERNIA REPAIR Comment: Lap umbil (more content not included)... [facility] 05-10-2024 History of Present illness Narrative [facility] Initial Clinic Visit Note Referred by: PCP- Preet Farrar DO History of present illness: Tia Blanco is a 68 year old female here today for evaluation of Type 2 DM, she also has a PMH of HTN, HLD, CVA, Obesity class I, Hypothyroidism, Celiac disease. She reports of a recent back surgery ending up in paralysis biut now she is walking and back onto exercise -Initially diagnosed: 15 years ago. On regular blood work -Length of time on oral medications before switching to insulin: 13 years, until Ozempic, 15 years until lantus -Duration of insulin use: 6 weeks Complications: Cardiovascular -- Yes HTN, HLD, in 2021 she had a Stroke Statin Use -- Yes Retinopathy -- No Last JUAN/Retina Eval: she has an appt next month Nephropathy -- Yes NICOLE/ARB Use -- Yes Polyneuropathy -- No Foot Exam: last time was 02/2024 Obesity -- Yes Other -- No -Family history of diabetes mellitus: Father, older sister, both had type 1 and both Personal history of DKA or HHS-- No Personal history of pancreatitis-- No History of alcohol consumption--No Family history of thyroid cancer-- No Personal history of Urinary tract infections -- None is the recent past . Diabetes Medications -Current regimen: lantus 12 units daily in the morning (started using insulin 6 weeks ago), Sitagliptin 100 mg daily, glimepiride 2 mg daily -Misses doses: None -Adverse medication effects: no -Rotating injection sites: yes She was on Ozempic 1 mg for more than 1 year, when it was increased to 2 mg she was hospitalized due to vomiting, diarrhea and was diagnosed with Gastroparesis assumed to be de to the medication -Previously Used DM Meds: Yes Metformin - GI upset Jardiance- Yeast infection . Blood sugars -Self monitoring of blood sugar via fingerstick: 4 x daily Insurance did not approve CGM. Reports she submits her BG to Dr. Farrar every 1 to 2 weeks, and has submitted today as well- but telephone encounter note mentions she submitted her BP readings -Brought blood glucose log for review: yes, in phone -BG log reviewed: --Fastins-170s --Prelunch: 110-150 --Predinner: 120s-140s --Bedtime: 150s-170s She denied any hyperglycemic symptoms today. . Hypoglycemia -Hypoglycemic episodes: denied any lows, lower than 89 -Frequency and timing of hypoglycemia: n/a -Hypoglycemia awareness: n/a Lifestyle -Exercise: 30 mins on [employer] daily -Diet: Breakfast: 3 eggs, 1 slice of gluten free bread Lunch: yogurt with 3 gms of carbs, either cheese or chicken sausage, half orange or small cup of fruit Dinner: salmon, chicken strips with 3 gms of carbs, broccoli or brussels sprouts . Blood pressure -Today BP 138/78 -BP cuff at home: -Current antihypertensive therapy: carvedilol 6.25 mg BID, Spironolactone 25 mg daily . Lipids -she is on atorvastatin high dose for hx of stroke in the past ROS: SYSTEMIC: Denies fatigue, malaise, energy, Weight has been stable, heat/cold intolerance, polydipsia EYES: Denies blurring of vision, diplopia, pain/discomfort, excessive tearing, swelling of eye lids, bulging, redness, dryness, NECK: Denies goiter, lump, pain/discomfort, dysphagia, hoarseness, sore thorat RESPIRATORY: Denies dyspnea at rest/with exertion, orthopnea cough, pleuritic chest pain, snoring, apnea episodes CARDIOVASCULAR: Chest pain, palpitations, irregular heart beats GASTRO-INTESTINAL:Denies Nausea, vomiting, abdominal pain, hyperdefecation, rectal bleeding NEUROLOGICAL: Denies dizziness, lightheadedness, weakness, cramping, numbness/tingling of extremities MUSCULOSKELETAL: Denies joint pain, stiffness, swelling, cramping or weakness. GENITOURINARY: Denies polyuria, recurrent UTI/yeast infections SKIN: Denies dryness, brittle nails, hair loss, alopecia, excessive sweating, flushing, darkening of skin PSYCHIATRIC: Denies anxiety, depression, panic attacks, irritability, mood swings Past Medical History PAST MEDICAL HISTORY 08/2019: Aortic stenosis, moderate No date: Benign hypertensive heart disease No date: Celiac disease No date: Diabetes mellitus without mention of complication Comment: Diabetes mellitus No date: Fatty liver No date: Grave's disease No date: IBS (irritable bowel syndrome) No date: Medical marijuana use Comment: has card No date: Ulcerative colitis, unspecified No date: Vitamin D deficiency Past Surgical History PAST SURGICAL HISTORY 09/09/2013: COLONOSCOPY FLX DX W/COLLJ SPEC WHEN PFRMD Comment: Colonoscopy 09/09/2013: ESOPHAGOGASTRODUODENOSCOPY TRANSORAL DIAGNOSTIC Comment: EGD No date: INFUSE RADIOACTIVE MATERIALS Comment: Iodine ablation for Grave's disease 02/17/2000: LAP UMBILICAL HERNIA REPAIR Comment: Lap umbilical hernia with a 19cm mesh 03/01/2007: LAPAROSCOPY SURG CHOLECYSTECTOMY Comment: Lap Mary with visiport RUQ insertion No date: LIG/TRNSXJ FLP TUBE ABDL/VAG APPR UNI/BI Comment: Tubal ligation Family History FAMILY HISTORY Problem Relation Age of Onset Cervical Cancer Sister Diabetes Father Psychiatry Mother Hypertension Father Heart Mother Heart Father Alzheimer's Disease Mother Breast Cancer Sister Social History Social History Tobacco Use Smoking status: Former Packs/day: 0.50 Years: 20.00 Additional pack years: 0.00 Total pack years: 10.00 Types: Cigarettes Quit date: 11/02/2022 Years since quittin.5 Smokeless tobacco: Never Substance Use Topics Alcohol use: Yes Drug use: Yes Types: Marijuana Allergies ALLERGIES Allergen Reactions Asa [Salicylates] Hives, GI Upset As a child Gluten Intolerance Metformin GI Upset, Itching Prednisone Itching Sulfa (Sulfonamide * Rash Current Medications Current Outpatient Medications Medication Sig Dispense Refill Insulin Witt, Disposable, (PEN NEEDLE) 29 gauge x 1/2 Use one needle per dose. 1 per day 100 Each 11 glimepiride (AMARYL) 2 mg tablet Take 1 tablet by mouth two times a day with meals. 180 tablet 1 insulin glargine (LANTUS SOLOSTAR U-100 INSULIN) 100 unit/mL (3 mL) Inject 10 Units subcutaneously daily at bedtime. (Patient taking differently: Inject 12 Units subcutaneously every morning.) 27 mL 3 SITagliptin phosphate (JANUVIA) 100 mg tablet Take 1 tablet by mouth once daily. 90 tablet 1 carvedilol (COREG) 6.25 mg tablet Take 1 tablet by mouth two times a day with meals. 180 tablet 3 ergocalciferol 50,000 unit capsule (VITAMIN D2, DRISDOL) Take 1 capsule by mouth two times a week. 24 capsule 3 ARMOUR THYROID 120 mg tablet Take 1 tablet PO daily in AM (Patient taking differently: Take 120 mg by mouth once daily.) 90 tablet 1 blood sugar diagnostic (BLOOD GLUCOSE TEST) test strip Test blood sugar(s) 2 times daily. Dx: Type 2 DM - Uncontrolled Insulin: No 100 Strip 11 atorvastatin (LIPITOR) 80 mg tablet Take 1 tablet by mouth once daily. 90 tablet 1 clopidogrel (PLAVIX) 75 mg tablet Take 1 tablet by mouth once daily. 90 tablet 1 spironolactone (ALDACTONE) 25 mg tablet Take 25 mg by mouth once daily. blood sugar diagnostic (FREESTYLE LITE STRIPS) test strip Test blood sugar(s) 8 times daily. Dx: E11.65. Insulin: No 800 Strip 11 ELDERBERRY FRUIT ORAL Take 1,000 mg by mouth once daily. ondansetron orally disintegrating (ZOFRAN ODT) 4 mg disintegrating tablet Take 1 tablet by mouth every 8 hours as needed for nausea/vomiting. 20 tablet 1 Blood Pressure Monitor (BLOOD PRESSURE KIT) 1 Each as directed. Dx: essential hypertension 1 Kit 0 Lancets lancets Test blood sugar(s) 2 times daily. Dx: Type 2 DM - Uncontrolled Insulin: No 100 Each 11 flash glucose scanning reader (FREESTYLE TARA 2 READER) 1 Device as directed. Type 2 diabetes uncontrolled, no insulin (Patient not taking: Reported on 01/06/2024) 1 Each 0 No current facility-administered medications for this visit. Recent Labs 06/05/21 0810 07/18/21 1034 09/13/21 1205 11/13/21 0755 11/13/21 0756 02/19/22 1238 03/25/22 1200 04/04/22 1000 04/04/22 1004 06/24/22 1003 08/26/22 1105 09/08/22 0853 11/05/22 1034 11/05/22 1504 12/02/22 0821 03/10/23 0758 05/05/23 0733 06/15/23 0831 07/30/23 1318 09/08/23 1122 11/13/23 0931 11/16/23 1156 01/06/24 1133 03/21/24 1120 05/03/24 1146 ALT -- -- -- 8 -- 13 -- -- -- -- -- 13 -- -- 14 21 -- 15 -- -- 18 -- -- 16 -- AST -- -- -- 14 -- 16 -- -- -- -- -- 17 -- -- 14 23 -- 16 -- -- 19 -- -- 27 -- UCRR -- -- -- -- 19.5* -- -- -- 46.8 8.8* 84.7 -- -- 16.2* -- -- 55.6 -- -- -- 18.0* -- -- -- 12.5* UALBR -- -- -- -- <12.0 -- -- -- -- -- -- -- -- <12.0 -- -- -- -- -- -- <12.0 -- -- -- -- UALBCR -- -- -- -- Not calculated -- -- -- -- -- -- -- -- -- -- -- -- -- -- -- -- -- -- -- -- TSH 0.027* 0.040* 0.289 2.660 -- -- -- -- -- -- -- -- -- -- -- 0.309 -- 0.009* -- 0.119* 0.324 0.882 -- 1.890 -- TPROT -- -- -- 7.3 -- 7.2 -- -- -- -- -- 7.5 -- -- 6.9 7.4 -- 6.9 -- -- 7.5 -- -- 7.4 -- ALB -- -- -- 4.5 -- 4.4 4.5 4.5 -- 4.3 4.3 4.5 4.3 -- 4.2 4.5 4.1 4.1 -- -- 4.6 -- -- 4.3 4.5 CA -- -- -- 9.6 -- 10.1 10.6* 9.9 -- 9.9 9.6 10.0 9.8 -- 9.6 10.0 9.9 9.7 -- -- 10.1 -- -- 10.4* 10.0 TBILI -- -- -- 0.4 -- 0.2 -- -- -- -- -- 0.6 -- -- 0.5 0.6 -- 0.6 -- -- 0.4 -- -- 0.4 -- ALKPHOS -- -- -- 114 -- 104 -- -- -- -- -- 99 -- -- 96 110 -- 102 -- -- 103 -- -- 99 -- GLUC -- -- -- 106* -- 134* 128* 192* -- 145* 151* 197* 221* -- 192* 204* 156* 182* -- -- 179* -- -- 192* 138* BUN -- -- -- 8 -- 14 15 14 -- 15 16 17 13 -- 12 13 13 12 -- -- 12 -- -- 17 18 CREAT -- -- -- 0.54* -- 0.52* 0.53* 0.51* -- 0.58 0.58 0.63 0.51* -- 0.54* 0.62 0.56* 0.58 -- -- 0.53* -- -- 0.67 0.68 NA -- -- -- 137 -- 138 137 133* -- 138 138 134* 135* -- 137 134* 135* 137 -- -- 139 -- -- 135* 137 K -- -- -- 3.8 -- 4.1 4.7 4.4 -- 4.9 4.6 4.7 4.3 -- 5.0 5.0 4.6 4.5 3.9 -- 3.7 -- -- 4.9 4.7 CHLOR -- -- -- 98 -- 98 98 98 -- 101 101 97 102 -- 102 96* 101 99 -- -- 100 -- -- 98 100 CO2 -- -- -- 26 -- 25 21* 22 -- 24 24 28 23 -- 27 27 25 26 -- -- 27 -- -- 21* 27 ANION -- -- -- 13 -- 15 18 13 -- 13 13 9 10 -- 8* 11 9 12 -- -- 12 -- -- 16* 10 EGFROTH -- -- -- >60 -- 103 102 103 -- 100 100 97 102 -- 101 98 100 99 -- -- 101 -- -- 95 95 HBA1C -- -- -- 6.3* -- 6.5* -- -- -- -- -- 7.1* -- -- 7.3* 7.8* -- 6.7* -- 6.4* 6.5* 6.4* 6.5* -- -- B12 -- -- -- 366 -- -- -- -- -- -- -- -- -- -- 1,636* -- -- -- -- 1,913* -- -- -- -- -- Recent Labs 11/13/21 0755 02/19/22 1238 09/08/22 0853 12/02/22 0821 03/10/23 0758 06/15/23 0831 09/08/23 1122 11/13/23 0931 11/16/23 1156 01/06/24 1133 TG -- -- 168* 90 91 113 -- 99 -- -- CHOL -- -- 222* 95 107 100 -- 121 -- -- HDL -- -- 60 53 61 55 -- 77 -- -- VLDL -- -- 34* 18 18 23 -- 20 -- -- LDL -- -- 128* 24 28 22 -- 24 -- -- FASTTIME -- -- 9 12 12 12.5 -- 12 -- -- TCHDL -- -- 3.70 1.79 1.75 1.82 -- 1.57 -- -- LDLHDL -- -- 2.13 0.45 0.46 0.40 -- 0.31 -- -- NONHDL -- -- 162* 42 46 45 -- 44 -- -- HBA1C 6.3* 6.5* 7.1* 7.3* 7.8* 6.7* 6.4* 6.5* 6.4* 6.5* HBA0 134 140 157 163 177 146 137 140 137 -- B12 366 -- -- 1,636* -- -- 1,913* -- -- -- Vitals: 05/10/24 1329 BP: 138/78 BP Site: Right Arm BP Position: Sitting BP Cuff Size: Regular Adult Pulse: 76 Resp: 18 SpO2: 97% Weight: 77.9 kg (171 lb 12.8 oz) Height: 152.4 cm (5') Physical Exam GENERAL: Well nourished, obese, well hydrated, in no distress and oriented x 3 EYES: no thyroid eye signs, EOMI NECK: , no tenderness and adenopathy THYROID: Non-tender to palpable, no evidence of goiter, no nodules palpable LUNGS: Unlabored on room air HEART: regular rate and rhythm GI: abdomen is soft, nontender. Injections sites without lipodystrophy EXTREMITIES: no edema. Foot exam done in 02/2024 NEURO: normal strength, no tremor OTHER: Acanthosis None Assessment and Plan Type 2 DM with macrovascular complications and current mcfp insulin use -A1c 6.5% on 01/06/2024 -eGFR 95 on 03/21/24 -Current regimen: lantus 12 units daily in the morning (started using insulin 6 weeks ago), Sitagliptin 100 mg daily, glimepiride 2 mg daily -she could not tolerate jardiance, metformin Plan: - Advised continuing same medications - discussed that her Blood glucose levels on finger sticks are not in the elevated range, and Hba1c also represents good control - she is advised to continue with her PCP if she prefers and she would like to keep sending her BG to PCP and requests if we can discuss together to keep managing- discussed follow up with us rather - encouraged continuing BG check and to add a 2 am finger stick BG if possible to make sure no hypoglycemic events overnight - Encouraged continuing diet and exercise - labs uptodate for diabetes complication prevention - she is update with eye exam #Blood Pressure -Today BP 138/78 -Currently antihypertensive regimen: on coreg and spironolactone -managed by PCP #Dyslipidemia, hx of stroke - on 80 mg atorvastatin daily -managed by PCP #Obesity Class I with serious comobidity - could not tolerate GLP-1 agonists and is trying weight loss with lifestyle modifications- diet and exercise I appreciated and encouraged her to continue the good work Scripts sent to pharmacy of pt choice: N/A RTC in 3 months I have confirmed and edited as necessary, the past medical, surgical, family, and social history as obtained by others. My final recommendations will be communicated back to the requesting physician by way of shared medical record or letter via [place] mail. Bean Isaac MD Endocrinology Associate Staff [facility] Endocrinology and Metabolism [place] [phone] Medical Decision Making: Problems: Moderate: 1+ chronic illnesses with change Data: Unique test result(s) reviewed: 3+ Independent interpretation of test from other physician/QHCP Medical Decision Making Level: 4 - Moderate documented in this encounter [facility] 04-19-2024 Miscellaneous Notes Pt. informed. Ok to take the Lantus in the AM or the PM, whichever she will be consistent with daily. Increase dose to 12 units and notify in 2-3 weeks her blood glucose readings. They are improving Preet Farrar DO Pt calling in wondering if Dr. Farrar has reviewed her blood sugars. She is unsure if she needs to be changing her dosage of insulin. She was just started on insulin on 03/21/24. Pt states she is taking 10 units of the Lantus insulin in the morning around 9 am after breakfast. Per med sig, it says daily at bedtime. Pt states she thought that Dr. Farrar told her it was okay to take in the morning. Update on BS: takes first one as soon as she wakes up so around 630-7 am, then takes the next one around 1230-1 pm with lunch, then one at dinner around 530 pm and last one around 9 pm in the evening. 171 156 169 172 165 160 143 168 142 149 157 172 123 120 167 ---- 154 132 194 173 190 184 163 161 179 210 Pt states she usually has 3 poached eggs and gluten free toast for breakfast. Lunch usually yogurt, chicken sausage and an orange Dinner usually salmon or chicken strips and vegetables. Please review and advise if pt should be taking insulin in the morning or in the evening and if she needs to adjust the dose at all. Notified nurse Lisa to let Dr. Farrar know to review previous blood sugars pt has already brought in too. Glucose readings on JG desk. Will await new glucose readings. Sofia Harrison MA Patient calls and states that she had dropped off blood sugar readings last week. Patient asking if those were received. Patient notified that reading are currently in Dr. Farrar's box to be reviewed. Patient voiced understanding. Patient states that she is going to drop off more blood sugar readings to go along with ones she previously dropped off. Lisa Aparicio RN documented in this encounter [facility] 04-19-2024 Telephone encounter Note Pt. informed. [facility] 04-19-2024 Telephone encounter Note Ok to take the Lantus in the AM or the PM, whichever she will be consistent with daily. Increase dose to 12 units and notify in 2-3 weeks her blood glucose readings. They are improving Preet Farrar DO [facility] 04-19-2024 Telephone encounter Note Pt calling in wondering if Dr. Farrar has reviewed her blood sugars. She is unsure if she needs to be changing her dosage of insulin. She was just started on insulin on 03/21/24. Pt states she is taking 10 units of the Lantus insulin in the morning around 9 am after breakfast. Per med sig, it says daily at bedtime. Pt states she thought that Dr. Farrar told her it was okay to take in the morning. Update on BS: takes first one as soon as she wakes up so around 630-7 am, then takes the next one around 1230-1 pm with lunch, then one at dinner around 530 pm and last one around 9 pm in the evening. 171 156 169 172 165 160 143 168 142 149 157 172 123 120 167 ---- 154 132 194 173 190 184 163 161 179 210 Pt states she usually has 3 poached eggs and gluten free toast for breakfast. Lunch usually yogurt, chicken sausage and an orange Dinner usually salmon or chicken strips and vegetables. Please review and advise if pt should be taking insulin in the morning or in the evening and if she needs to adjust the dose at all. Notified nurse Lisa to let Dr. Farrar know to review previous blood sugars pt has already brought in too. T [facility] 04-12-2024 Telephone encounter Note Glucose readings on J desk. Will await new glucose readings. Sofia Harrison MA T [facility] 04-12-2024 Telephone encounter Note Patient calls and states that she had dropped off blood sugar readings last week. Patient asking if those were received. Patient notified that reading are currently in Dr. Farrar's box to be reviewed. Patient voiced understanding. Patient states that she is going to drop off more blood sugar readings to go along with ones she previously dropped off. Lisa Aparicio RN [facility] 03-23-2024 Telephone encounter Note Patient was notified Donna Novak MA [facility] 03-23-2024 Miscellaneous Notes Patient was notified Donna Novak MA Needs to increase her armor thyroid to 120 mg 7 days a week Preet Farrar DO Please address the thyroid issue. Per previous note, Pt notified of results, pt states she takes 120mg of armour thyroid 6 days weekly as prescribed. Med list states she is to be taking it daily but she said she was told to take it 6 days/wk because of a low level. States she has not missed any doses. . Please call and advise. The following approved medication requests have been transmitted electronically. Requested Prescriptions Signed Prescriptions Disp Refills Insulin Witt, Disposable, (PEN NEEDLE) 29 gauge x 1/2 100 Each 11 Sig: Use one needle per dose. 1 per day Authorizing Provider: PREET FARRAR DO Pt called in and reports she needs the needles that go with her insulin pen. She reports she has one left that came with the Ozempic she is no longer taking. She reports those were Nova fine + 36 g 4 mm 10/13 in. I couldn't find this on our order list. Pt needs needles by tomorrow morning. Pt notified of results, pt states she takes 120mg of armour thyroid 6 days weekly as prescribed. Med list states she is to be taking it daily but she said she was told to take it 6 days/wk because of a low level. States she has not missed any doses. Also lantus insulin was sent to the pharmacy yesterday but there was no Rx for needles, pt states she had 3 needles left from another medication so was able to do first dose. Needs an Rx. Pt uses [facility] in [place]. Gretchen Dorantes LPN Please inform patient that her free t4 level is low. TSH is stable. What does of armour thyroid supplement is she taking? Any missed doses? /Preet Farrar DO documented in this encounter [facility] 03-23-2024 Telephone encounter Note Needs to increase her armor thyroid to 120 mg 7 days a week Preet Farrar DO [facility] 03-22-2024 Telephone encounter Note Please address the thyroid issue. Per previous note, Pt notified of results, pt states she takes 120mg of armour thyroid 6 days weekly as prescribed. Med list states she is to be taking it daily but she said she was told to take it 6 days/wk because of a low level. States she has not missed any doses. . Please call and advise. [facility] 03-22-2024 Telephone encounter Note The following approved medication requests have been transmitted electronically. Requested Prescriptions Signed Prescriptions Disp Refills Insulin Witt, Disposable, (PEN NEEDLE) 29 gauge x 1/2 100 Each 11 Sig: Use one needle per dose. 1 per day Authorizing Provider: PREET FARRAR DO [facility] 03-22-2024 Telephone encounter Note Pt called in and reports she needs the needles that go with her insulin pen. She reports she has one left that came with the Ozempic she is no longer taking. She reports those were Nova fine + 36 g 4 mm 10/13 in. I couldn't find this on our order list. Pt needs needles by tomorrow morning. T [facility] 03-22-2024 Telephone encounter Note Pt notified of results, pt states she takes 120mg of armour thyroid 6 days weekly as prescribed. Med list states she is to be taking it daily but she said she was told to take it 6 days/wk because of a low level. States she has not missed any doses. Also lantus insulin was sent to the pharmacy yesterday but there was no Rx for needles, pt states she had 3 needles left from another medication so was able to do first dose. Needs an Rx. Pt uses [facility] in [place]. Gretchen Dorantes LPN T [facility] 03-22-2024 Telephone encounter Note Please inform patient that her free t4 level is low. TSH is stable. What does of armour thyroid supplement is she taking? Any missed doses? /Preet Farrar DO T [facility] 03-21-2024 Note HNO ID: [id number] Author: PREET FARRAR DO Service: ? Author Type: Physician Type: Progress Notes Filed: 03/23/2024 07:37 Note Text: Transitional Care Management TCM Eligibility Documentation The following information was gathered during patient outreach 03/10/2024 Date of Outreach: Outreach Attempt 1: Contact Made Date of Discharge 03/09/2024 Provider Documentation Tia Blanco is a 68 year old female here today for a follow up from recent hospitalization. I have reviewed the patient's hospital course including discharge summary, discharge medications , follow up needs, and labs (notable for hyperglycemia) with the patient and any family members present at today's visit. HPI She feels that she is struggling recently with controlling her blood glucose She was taking ozempic GLP1 agonist and had some SE of nausea and GI upset. When she was seen at [facility] for hyperglycemia and fatigue as well as GI upset and vomiting and diarrhea, she was diagnosed with extreme hyperglycemia in the 400-500s without signs of ketoacidosis. She was also diagnosed with gastroenteritis and acute dehydration. She was treated with IVF as well as zofran and other anti emetic medication. She is still struggling with some hyperglycemia at discharge. Her ozempic was stopped during her hospitalization. She is only taking the glimepiride medication at this time. She didn't tolerate jardiance/farixiga in the past due to extreme symptoms of yeast and vaginitis, recurrently She didn't tolerate metformin in the past due to GI upset and diarrhea She doesn't want to be on multiple insulin injections daily PHYSICAL EXAMINATION BP 136/80 Pulse 64 Temp (!) 35.9 ?C (96.7 ?F) (Left Tympanic) Resp 16 Wt 73.9 kg (163 lb) BMI 31.83 kg/m? GENERAL: well appearing, alert, in no acute distress and tearful and anxious appearing in the office today HEART: regular rate and rhythm. No murmur, rubs or gallops. LUNGS: clear to auscultation, no wheezing, rhonchi, or crackles ABDOMEN: soft, non-tender, non-distended, no masses or organomegaly EXTREMITIES: no lower extremity edema. No skin discoloration. ASSESSMENT/PLAN: 1. Gastroenteritis - ICD9: 558.9, ICD10: K52.9 (primary diagnosis) Recheck labs Symptoms have resolved - COMPLETE BLOOD COUNT AND DIFFERENTIAL - COMPREHENSIVE METABOLIC PANEL 2. Uncontrolled type 2 diabetes mellitus with hyperglycemia (HCC) - ICD9: 250.02, ICD10: E11.65 - Uncontrolled - Start sitagliptin (Januvia) - Start Insulin glargine (Lantus/Basaglar/Toujeo)- she will call office in 1-2 weeks with blood glucose readings to titrate up dose as needed - GLIMEPIRIDE 2 MG TABLET - LANTUS SOLOSTAR U-100 INSULIN 100 UNIT/ML (3 ML) SUBCUTANEOUS PEN - SITAGLIPTIN PHOSPHATE 100 MG TABLET - CONSULT TO ENDOCRINOLOGY 3. Acquired hypothyroidism - ICD9: 244.9, ICD10: E03.9 - Instructed patient on importance of taking on an empty stomach either first thing in the morning or at bedtime. - THYROID STIMULATING HORMONE - T4 FREE/FREE THYROXINE 4. Obesity, Class I, BMI 30-34.9 - ICD9: 278.00, ICD10: E66.9 - Lengthy discussion in office today regarding diet and exercise. Discussed use of small plate to eat meals from, drink 1 glass of water 10-15 minutes prior to eating meal, drink 8 glasses of water daily, eat fresh fruit and vegetable during meal first then lean protein such as grilled/baked chicken breast or fish, limit carbohydrate intake (less pasta, breads, rice and snack foods) as well as limiting sugars (desserts etc). Important to count / track your calories and exercise as well. 5. Acute dehydration - ICD9: 276.51, ICD10: E86.0 Resolved with IVF and electrolytes 6. Situational anxiety - ICD9: 300.09, ICD10: F41.8 Stressed currently with her hyperglycemia Overall she is managing myla Farrar DO [facility] 03-21-2024 History of Present illness Narrative Transitional Care Management TCM Eligibility Documentation The following information was gathered during patient outreach 03/10/2024 Date of Outreach: Outreach Attempt 1: Contact Made Date of Discharge 03/09/2024 Provider Documentation Tia Blanco is a 68 year old female here today for a follow up from recent hospitalization. I have reviewed the patient's hospital course including discharge summary, discharge medications , follow up needs, and labs (notable for hyperglycemia) with the patient and any family members present at today's visit. HPI She feels that she is struggling recently with controlling her blood glucose She was taking ozempic GLP1 agonist and had some SE of nausea and GI upset. When she was seen at [facility] for hyperglycemia and fatigue as well as GI upset and vomiting and diarrhea, she was diagnosed with extreme hyperglycemia in the 400-500s without signs of ketoacidosis. She was also diagnosed with gastroenteritis and acute dehydration. She was treated with IVF as well as zofran and other anti emetic medication. She is still struggling with some hyperglycemia at discharge. Her ozempic was stopped during her hospitalization. She is only taking the glimepiride medication at this time. She didn't tolerate jardiance/farixiga in the past due to extreme symptoms of yeast and vaginitis, recurrently She didn't tolerate metformin in the past due to GI upset and diarrhea She doesn't want to be on multiple insulin injections daily PHYSICAL EXAMINATION BP 136/80 Pulse 64 Temp (!) 35.9 C (96.7 F) (Left Tympanic) Resp 16 Wt 73.9 kg (163 lb) BMI 31.83 kg/m GENERAL: well appearing, alert, in no acute distress and tearful and anxious appearing in the office today HEART: regular rate and rhythm. No murmur, rubs or gallops. LUNGS: clear to auscultation, no wheezing, rhonchi, or crackles ABDOMEN: soft, non-tender, non-distended, no masses or organomegaly EXTREMITIES: no lower extremity edema. No skin discoloration. ASSESSMENT/PLAN: 1. Gastroenteritis - ICD9: 558.9, ICD10: K52.9 (primary diagnosis) Recheck labs Symptoms have resolved - COMPLETE BLOOD COUNT AND DIFFERENTIAL - COMPREHENSIVE METABOLIC PANEL 2. Uncontrolled type 2 diabetes mellitus with hyperglycemia (HCC) - ICD9: 250.02, ICD10: E11.65 - Uncontrolled - Start sitagliptin (Januvia) - Start Insulin glargine (Lantus/Basaglar/Toujeo)- she will call office in 1-2 weeks with blood glucose readings to titrate up dose as needed - GLIMEPIRIDE 2 MG TABLET - LANTUS SOLOSTAR U-100 INSULIN 100 UNIT/ML (3 ML) SUBCUTANEOUS PEN - SITAGLIPTIN PHOSPHATE 100 MG TABLET - CONSULT TO ENDOCRINOLOGY 3. Acquired hypothyroidism - ICD9: 244.9, ICD10: E03.9 - Instructed patient on importance of taking on an empty stomach either first thing in the morning or at bedtime. - THYROID STIMULATING HORMONE - T4 FREE/FREE THYROXINE 4. Obesity, Class I, BMI 30-34.9 - ICD9: 278.00, ICD10: E66.9 - Lengthy discussion in office today regarding diet and exercise. Discussed use of small plate to eat meals from, drink 1 glass of water 10-15 minutes prior to eating meal, drink 8 glasses of water daily, eat fresh fruit and vegetable during meal first then lean protein such as grilled/baked chicken breast or fish, limit carbohydrate intake (less pasta, breads, rice and snack foods) as well as limiting sugars (desserts etc). Important to count / track your calories and exercise as well. 5. Acute dehydration - ICD9: 276.51, ICD10: E86.0 Resolved with IVF and electrolytes 6. Situational anxiety - ICD9: 300.09, ICD10: F41.8 Stressed currently with her hyperglycemia Overall she is managing myla Farrar DO documented in this encounter [facility] 03-10-2024 Note HNO ID: [id number] Author: Suzanna COFFEY RN Service: ? Author Type: Registered Nurse Type: Progress Notes Filed: 03/10/2024 13:22 Note Text: Patient is scheduled for Hosp f/u with Dr. Farrar on 03-21-24. [facility] 03-10-2024 History of Present illness Narrative Patient is scheduled for Hosp f/u with Dr. Farrar on 03-21-24. Please make appointment. Thank you, Jacqueline Candelario APRN.TECHNICAL COMMUNICATOR TRANSITION CARE MANAGEMENT (TCM) INITIAL CONTACT Social Services Designee Outreach Provider Action/FYI: Patient would like to discuss ozempic- concern hospital stopping it- and what to do about her DM. Initial contact with patient post discharge, spoke to patient. Patient identified by name and . TRANSITION CARE MANAGEMENT INITIAL OUTREACH DOCUMENTATION: 03/10/2024 Date of Outreach: Outreach Attempt 1: Contact Made Date of Discharge 03/09/2024 SUMMARY: -Pt discharged from [facility] on 03-09-24. -Admitted for: Gastrointestinal possibly related to ozempic and high BS almost 500 Do you have a hospital follow up appointment with your PCP? Appointment on 03-21-[address] Farrar. Yes. Remind patient of appointment date, time, and location. If not within 14 calendar days of discharge - please reschedule accordingly. MEDICATIONS: Many patients have questions or concerns about their medications once they are home. Were you prescribed any new medications? If yes, what are those medications? Restarted glimepiride 2 mg bid. Protonix 40 mg daily. Zofran prn. Were you told to hold any medications? If yes, what are those medications? Ozempic. Last dose was this past Thursday. Were any of your medications discontinued? If yes, what are those medications? ozempic Do you have any questions about getting or taking your medications? No Your discharge instructions/After visit Summary (AVS) are important in guiding you through the recovery process. Is there anything I might help you understand? No Do you have all the necessary equipment and supplies at home? Yes Medical records from recent hospitalization: Epic documented in this encounter [facility] 03-10-2024 Note HNO ID: [id number] Author: JACQUELINE CANDELARIO APRN.TECHNICAL COMMUNICATOR Service: ? Author Type: Nurse Practitioner Type: Progress Notes Filed: 03/10/2024 13:22 Note Text: Please make appointment. Thank you, Jacqueline Candelario APRN.CNP [facility] 03-10-2024 Note HNO ID: [id number] Author: Suzanna COFFEY RN Service: ? Author Type: Registered Nurse Type: Progress Notes Filed: 03/10/2024 13:22 Note Text: TRANSITION CARE MANAGEMENT (TCM) INITIAL CONTACT Social Services Designee Outreach Provider Action/FYI: Patient would like to discuss ozempic- concern hospital stopping it- and what to do about her DM. Initial contact with patient post discharge, spoke to patient. Patient identified by name and . TRANSITION CARE MANAGEMENT INITIAL OUTREACH DOCUMENTATION: 03/10/2024 Date of Outreach: Outreach Attempt 1: Contact Made Date of Discharge 03/09/2024 SUMMARY: -Pt discharged from [facility] on 03-09-24. -Admitted for: Gastrointestinal possibly related to ozempic and high BS almost 500 Do you have a hospital follow up appointment with your PCP? Appointment on 03-21-[address] Farrar. Yes. Remind patient of appointment date, time, and location. If not within 14 calendar days of discharge - please reschedule accordingly. MEDICATIONS: Many patients have questions or concerns about their medications once they are home. Were you prescribed any new medications? If yes, what are those medications? Restarted glimepiride 2 mg bid. Protonix 40 mg daily. Zofran prn. Were you told to hold any medications? If yes, what are those medications? Ozempic. Last dose was this past Thursday. Were any of your medications discontinued? If yes, what are those medications? ozempic Do you have any questions about getting or taking your medications? No Your discharge instructions/After visit Summary (AVS) are important in guiding you through the recovery process. Is there anything I might help you understand? No Do you have all the necessary equipment and supplies at home? Yes Medical records from recent hospitalization: [facility] 03-10-2024 Note Patient Outreach ([facility]) ---- TIA BLANCO ([id number]) 1955 F Date Time Provider Department 03/10/24 PREET FARRAR During your visit today, we recorded the following information about you: Suzanna Coffey, RN 03/10/2024 1:22 PM Signed TRANSITION CARE MANAGEMENT (TCM) INITIAL CONTACT Social Services Designee Outreach Provider Action/FYI: Patient would like to discuss ozempic- concern hospital stopping it- and what to do about her DM. Initial contact with patient post discharge, spoke to patient. Patient identified by name and . TRANSITION CARE MANAGEMENT INITIAL OUTREACH DOCUMENTATION: 03/10/2024 Date of Outreach: Outreach Attempt 1: Contact Made Date of Discharge 03/09/2024 SUMMARY: -Pt discharged from [facility] on 03-09-24. -Admitted for: Gastrointestinal possibly related to ozempic and high BS almost 500 Do you have a hospital follow up appointment with your PCP? Appointment on 03-21-[address] Farrar. Yes. Remind patient of appointment date, time, and location. If not within 14 calendar days of discharge - please reschedule accordingly. MEDICATIONS: Many patients have questions or concerns about their medications once they are home. Were you prescribed any new medications? If yes, what are those medications? Restarted glimepiride 2 mg bid. Protonix 40 mg daily. Zofran prn. Were you told to hold any medications? If yes, what are those medications? Ozempic. Last dose was this past Thursday. Were any of your medications discontinued? If yes, what are those medications? ozempic Do you have any questions about getting or taking your medications? No Your discharge instructions/After visit Summary (AVS) are important in guiding you through the recovery process. Is there anything I might help you understand? No Do you have all the necessary equipment and supplies at home? Yes Medical records from recent hospitalization: Epic Jacqueline Candelario APRN.CNP 03/10/2024 1:22 PM Signed Please make appointment. Thank you, YINKA Shearer M Robin, RN 03/10/2024 1:22 PM Signed Patient is scheduled for Hosp f/u with Dr. Farrar on 03-21-24. Allergies As of Date: 03/10/2024 Noted Allergy Reaction ASA (SALICYLATES) 01/05/2006 GLUTEN 10/17/2016 16 - Unknown METFORMIN 06/20/2010 Comments: nausea.. can take name brand PREDNISONE 10/02/2012 9 - Itching SULFA (SULFONAMIDE ANTIBIOTICS) 12/29/2005 Date Reviewed: 01/27/2024 Reviewed by: Jacqueline Candelario APRN.TECHNICAL COMMUNICATOR - Fully Assessed Reason for Visit: Transition Of Care [4074] Prescriptions as of 03/10/2024 - carvedilol (COREG) 6.25 mg tablet Take 1 tablet by mouth two times a day with meals. - ergocalciferol 50,000 unit capsule (VITAMIN D2, DRISDOL) Take 1 capsule by mouth two times a week. - semaglutide (OZEMPIC) 2 mg/dose (8 mg/3 mL) pen injector Inject 2 mg subcutaneously one time a week. - ARMOUR THYROID 120 mg tablet Take 1 tablet PO daily in AM - blood sugar diagnostic (BLOOD GLUCOSE TEST) test strip Test blood sugar(s) 2 times daily. Dx: Type 2 DM - Uncontrolled E11.65 Insulin: No - atorvastatin (LIPITOR) 80 mg tablet Take 1 tablet by mouth once daily. - clopidogrel (PLAVIX) 75 mg tablet Take 1 tablet by mouth once daily. - spironolactone (ALDACTONE) 25 mg tablet Take 25 mg by mouth once daily. - flash glucose scanning reader (FREESTYLE TARA 2 READER) 1 Device as directed. Type 2 diabetes uncontrolled, no insulin - blood sugar diagnostic (FREESTYLE LITE STRIPS) test strip Test blood sugar(s) 8 times daily. Dx: E11.65. Insulin: No - elderberry fruit 350 mg cap Take 1 capsule by mouth once daily. - ondansetron orally disintegrating (ZOFRAN ODT) 4 mg disintegrating tablet Take 1 tablet by mouth every 8 hours as needed for nausea/vomiting. - Blood Pressure Monitor (BLOOD PRESSURE KIT) 1 Each as directed. Dx: essential hypertension - Lancets lancets Test blood sugar(s) 2 times daily. Dx: Type 2 DM - Uncontrolled E11.65 Insulin: No - Lancets (FREESTYLE LANCETS) lancets Test blood sugar(s) 2 times daily. Dx: 250.02. Insulin: No Problem List As Of Date 03/10/2024 Noted Resolved Diabetes mellitus type 2, controlled, without c*07/13/2006 12/08/2022 BENIGN HYPERTENSION [I10] 07/13/2006 ADJUSTMENT DISORDER WITH DEPRESSED MOOD [F43.21]07/13/2006 ANXIETY STATE NOS [F41.1] 07/13/2006 Hypothyroidism [E03.9] 07/13/2006 Abdominal pain, right upper quadrant [R10.11] 02/16/2007 12/08/2022 Tobacco Use Disorder [F17.200] 10/29/2009 Celiac disease [K90.0] 11/06/2009 Fatigue [R53.83] 09/07/2017 Medial epicondylitis, left [M77.02] 09/07/2017 Controlled type 2 diabetes mellitus without com*10/12/2018 12/08/2022 Situational anxiety [F41.8] 10/12/2018 Dyslipidemia [E78.5] 10/12/2018 Aortic stenosis, moderate [I35.0] 08/2019 Uncontrolled type 2 diabetes mellitus with hype*05/21/2020 Palpitations [R (more content not included)... [facility] 02-29-2024 Telephone encounter Note Patient has been identified by name and date of : Yes, Patient phones for refill(s): Requested Prescriptions Pending Prescriptions Disp Refills carvedilol (COREG) 6.25 mg tablet 180 tablet 3 Sig: Take 1 tablet by mouth two times a day with meals. Date of last office visit in primary care: 01/27/2024 Date of next office visit in primary care: 03/21/2024 Please advise. Thank you. Neva Thomas LPN. [facility] 02-29-2024 Miscellaneous Notes Patient has been identified by name and date of : Yes, Patient phones for refill(s): Requested Prescriptions Pending Prescriptions Disp Refills carvedilol (COREG) 6.25 mg tablet 180 tablet 3 Sig: Take 1 tablet by mouth two times a day with meals. Date of last office visit in primary care: 01/27/2024 Date of next office visit in primary care: 03/21/2024 Please advise. Thank you. Neva Thomas LPN. documented in this encounter [facility] 02-15-2024 Telephone encounter Note Spoke with patient. Given message from provider's office. Patient verbalizes understanding. Emily Osei RN [facility] 02-15-2024 Miscellaneous Notes Spoke with patient. Given message from provider's office. Patient verbalizes understanding. Emily Osei RN No dietary restrictions needed -- she eats very healthy to begin with. Elevation after meals is expected and normal. No concerns. Thank you, Jacqueline Candelario APRN.CNP Tia Blanco is a 68 year old female who reports glucose readings as noted. Meal # 1 = Breakfast or first meal of day, Meal # 2 = Lunch, # 3 = Evening meal DATE 02/14 02/13 02/12 02/11 02/10 Fasting 190 175 135 155 163 Post Meal #1 206 225 216 Before Meal 212 159 134 Post Meal # 2 190 165 Before Meal 149 147 Post Meal # 3 Bedtime 168 182 182 Other Any low blood sugars during this period of reporting No Patient's diabetes medications as follows: Taking Ozempic as prescribed. Patient asking if there are any dietary adjustments she needs to make? She is not eating bedtime snacks due to high blood sugar readings. Asking for dietary recommendations. Emily Osei RN documented in this encounter [facility] 02-15-2024 Telephone encounter Note No dietary restrictions needed -- she eats very healthy to begin with. Elevation after meals is expected and normal. No concerns. Thank you, Jacqueline Candelario APRN.TECHNICAL COMMUNICATOR [facility] 02-15-2024 Telephone encounter Note Tia Blanco is a 68 year old female who reports glucose readings as noted. Meal # 1 = Breakfast or first meal of day, Meal # 2 = Lunch, # 3 = Evening meal DATE 02/14 02/13 02/12 02/11 02/10 Fasting 190 175 135 155 163 Post Meal #1 206 225 216 Before Meal 212 159 134 Post Meal # 2 190 165 Before Meal 149 147 Post Meal # 3 Bedtime 168 182 182 Other Any low blood sugars during this period of reporting No Patient's diabetes medications as follows: Taking Ozempic as prescribed. Patient asking if there are any dietary adjustments she needs to make? She is not eating bedtime snacks due to high blood sugar readings. Asking for dietary recommendations. Emily Osei RN [facility] 02-03-2024 Note Patient Outreach (IN [facility]) ---- TIA BLANCO ([id number]) 1955 F Date Time Provider Department 02/03/24 PREET FARRAR During your visit today, we recorded the following information about you: Allergies As of Date: 02/03/2024 Noted Allergy Reaction ASA (SALICYLATES) 01/05/2006 GLUTEN 10/17/2016 16 - Unknown METFORMIN 06/20/2010 Comments: nausea.. can take name brand PREDNISONE 10/02/2012 9 - Itching SULFA (SULFONAMIDE ANTIBIOTICS) 12/29/2005 Date Reviewed: 01/27/2024 Reviewed by: Jacqueline Candelario APRN.TECHNICAL COMMUNICATOR - Fully Assessed Visit Diagnosis:Encounter for screening mammogram for breast cancer [Z12.31] Order(s):[facility] SCREENING [[id number]] Order #: [id number] FUTURE Prescriptions as of 02/08/2024 - ergocalciferol 50,000 unit capsule (VITAMIN D2, DRISDOL) Take 1 capsule by mouth two times a week. - semaglutide (OZEMPIC) 2 mg/dose (8 mg/3 mL) pen injector Inject 2 mg subcutaneously one time a week. - ARMOUR THYROID 120 mg tablet Take 1 tablet PO daily in AM - blood sugar diagnostic (BLOOD GLUCOSE TEST) test strip Test blood sugar(s) 2 times daily. Dx: Type 2 DM - Uncontrolled E11.65 Insulin: No - atorvastatin (LIPITOR) 80 mg tablet Take 1 tablet by mouth once daily. - clopidogrel (PLAVIX) 75 mg tablet Take 1 tablet by mouth once daily. - busPIRone (BUSPAR) 5 mg tablet Take 1 tablet by mouth three times a day as needed. - spironolactone (ALDACTONE) 25 mg tablet Take 25 mg by mouth once daily. - carvedilol (COREG) 6.25 mg tablet Take 6.25 mg by mouth two times a day with meals. - flash glucose scanning reader (FREESTYLE TARA 2 READER) 1 Device as directed. Type 2 diabetes uncontrolled, no insulin - blood sugar diagnostic (FREESTYLE LITE STRIPS) test strip Test blood sugar(s) 8 times daily. Dx: E11.65. Insulin: No - elderberry fruit 350 mg cap Take 1 capsule by mouth once daily. - ondansetron orally disintegrating (ZOFRAN ODT) 4 mg disintegrating tablet Take 1 tablet by mouth every 8 hours as needed for nausea/vomiting. - Blood Pressure Monitor (BLOOD PRESSURE KIT) 1 Each as directed. Dx: essential hypertension - Lancets lancets Test blood sugar(s) 2 times daily. Dx: Type 2 DM - Uncontrolled 65 Insulin: No - Lancets (FREESTYLE LANCETS) lancets Test blood sugar(s) 2 times daily. Dx: 250.02. Insulin: No Problem List As Of Date 02/03/2024 Noted Resolved Diabetes mellitus type 2, controlled, without c*07/13/2006 12/08/2022 BENIGN HYPERTENSION [I10] 07/13/2006 ADJUSTMENT DISORDER WITH DEPRESSED MOOD [F43.21]07/13/2006 ANXIETY STATE NOS [F41.1] 07/13/2006 Hypothyroidism [E03.9] 07/13/2006 Abdominal pain, right upper quadrant [R10.11] 02/16/2007 12/08/2022 Tobacco Use Disorder [F17.200] 10/29/2009 Celiac disease [K90.0] 11/06/2009 Fatigue [R53.83] 09/07/2017 Medial epicondylitis, left [M77.02] 09/07/2017 Controlled type 2 diabetes mellitus without com*10/12/2018 12/08/2022 Situational anxiety [F41.8] 10/12/2018 Dyslipidemia [E78.5] 10/12/2018 Aortic stenosis, moderate [I35.0] 08/2019 Uncontrolled type 2 diabetes mellitus with hype*05/21/2020 Palpitations [R00.2] 02/19/2022 Uncontrolled hypertension [I10] 02/19/2022 Vitamin B12 deficiency [E53.8] 09/10/2022 Vitamin D deficiency [E55.9] 09/10/2022 History of tobacco abuse [Z87.891] 03/18/2023 Disease of spinal cord (HCC) [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 She states the provider told her it would be some times before her body started working with the medication. She states with the Jardiance she was supposed to eat carbs. She was wanting to know if with just the Ozempic if she is supposed to be eating few or no carbs, or the same as when she was on the Jardiance. Patient has been identified by name and date of : Yes, Provider Dr Farrar Date 02/02/24 Time 0859. Patient phones for refill(s): Requested Prescriptions Pending Prescriptions Disp Refills ergocalciferol 50,000 unit capsule (VITAMIN D2, DRISDOL) 24 capsule 3 Sig: Take 1 capsule by mouth two times a week. Date of last office visit in primary care: 01/27/2024 Date of next office visit in primary care: 03/21/2024 Please advise. Thank you. Mavis Canada RN. [facility] 02-02-2024 Miscellaneous Notes Pt reports she was taken off of her Jardiance at her last appointment and now she is only on the Ozempic. She states the provider told her it would be some times before her body started working with the medication. She states with the Jardiance she was supposed to eat carbs. She was wanting to know if with just the Ozempic if she is supposed to be eating few or no carbs, or the same as when she was on the Jardiance. Patient has been identified by name and date of : Yes, Provider Dr Farrar Date 02/02/24 Time 0859. Patient phones for refill(s): Requested Prescriptions Pending Prescriptions Disp Refills ergocalciferol 50,000 unit capsule (VITAMIN D2, DRISDOL) 24 capsule 3 Sig: Take 1 capsule by mouth two times a week. Date of last office visit in primary care: 01/27/2024 Date of next office visit in primary care: 03/21/2024 Please advise. Thank you. Mavis Canada RN. documented in this encounter [facility] 01-27-2024 Note HNO ID: [id number] Author: JACQUELINE CANDELARIO APRN.TECHNICAL COMMUNICATOR Service: ? Author Type: Nurse Practitioner Type: Progress Notes Filed: 01/27/2024 11:52 Note Text: Chief Complaint Patient presents with: follow up on b/s: States thinks yeast infection back which is a large side effect of Jardiance. States not going to keep going through this HPI Tia Blanco is a 68 year old female who presents here today for Above Complaints. Tia is an established patient of Dr. Farrar, DO and myself. Concerns today.. DM -- Stable with hgA1c 6.5, 3 weeks ago. Current regimen: jardiance 10 mg daily and ozempic 1 mg weekly. Current issue -- continues to get yeast infection over and over again. Has taken diflucan which helps but then symptoms come right back. Has been on metformin but caused itchiness and GI upset so this was discontinued. Not interested in trying this again. Pt is on a very strict diet: gluten free, no carbs, mainly protein and green veggie diet. Pt very anxious about blood sugar readings -- checking 3 x per day. Has not tried buspar regimen yet to help with anxiety. Last 14 Encounter BP Readings: Date: BP: 01/27/2024 124/68 01/06/2024 130/64 01/02/2024 132/82 12/09/2023 130/80 11/19/2023 100/60 11/13/2023 160/70 10/29/2023 150/62 09/14/2023 124/80 07/15/2023 126/74 06/26/2023 122/60 06/19/2023 118/68 04/30/2023 132/82 03/18/2023 130/80 12/10/2022 138/80 Past medical history, appointments, medications, allergies reviewed. Previous Medical History PAST MEDICAL HISTORY Diagnosis Date Aortic stenosis, moderate 08/2019 Benign hypertensive heart disease Celiac disease Diabetes mellitus without mention of complication Diabetes mellitus Fatty liver Grave's disease IBS (irritable bowel syndrome) Medical marijuana use has card Ulcerative colitis, unspecified Vitamin D deficiency Previous Surgical History PAST SURGICAL HISTORY Procedure Laterality Date COLONOSCOPY FLX DX W/COLLJ SPEC WHEN PFRMD 09/09/2013 Colonoscopy ESOPHAGOGASTRODUODENOSCOPY TRANSORAL DIAGNOSTIC 09/09/2013 EGD INFUSE RADIOACTIVE MATERIALS Iodine ablation for Grave's disease LAP UMBILICAL HERNIA REPAIR 02/17/2000 Lap umbilical hernia with a 19cm mesh LAPAROSCOPY SURG CHOLECYSTECTOMY 03/01/2007 Lap Mary with visiport RUQ insertion LIG/TRNSXJ FLP TUBE ABDL/VAG APPR UNI/BI Tubal ligation Family History FAMILY HISTORY Problem Relation Age of Onset Cervical Cancer Sister Diabetes Father Psychiatry Mother Hypertension Father Heart Mother Heart Father Alzheimer's Disease Mother Breast Cancer Sister Patient Allergies ALLERGIES Allergen Reactions Asa [Salicylates] Gluten Unknown Metformin nausea.. can take name brand Prednisone Itching Sulfa (Sulfonamide * Current Medications Current Outpatient Medications on File Prior to Visit Medication Sig ARMOUR THYROID 120 mg tablet Take 1 tablet PO daily in AM semaglutide (OZEMPIC) 1 mg/dose (4 mg/3 mL) pen Inject 1 mg subcutaneously one time a week. blood sugar diagnostic (BLOOD GLUCOSE TEST) test strip Test blood sugar(s) 2 times daily. Dx: Type 2 DM - Uncontrolled E11.65 Insulin: No empagliflozin (JARDIANCE) 10 mg tablet Take 1 tablet by mouth daily with breakfast. Take 1 tablet once daily in the morning atorvastatin (LIPITOR) 80 mg tablet Take 1 tablet by mouth once daily. clopidogrel (PLAVIX) 75 mg tablet Take 1 tablet by mouth once daily. busPIRone (BUSPAR) 5 mg tablet Take 1 tablet by mouth three times a day as needed. spironolactone (ALDACTONE) 25 mg tablet Take 25 mg by mouth once daily. carvedilol (COREG) 6.25 mg tablet Take 6.25 mg by mouth two times a day with meals. blood sugar diagnostic (FREESTYLE LITE STRIPS) test strip Test blood sugar(s) 8 times daily. Dx: E11.65. Insulin: No elderberry fruit 350 mg cap Take 1 capsule by mouth once daily. ondansetron orally disintegrating (ZOFRAN ODT) 4 mg disintegrating tablet Take 1 tablet by mouth every 8 hours as needed for nausea/vomiting. ergocalciferol 50,000 unit capsule (VITAMIN D2, DRISDOL) Take 1 capsule by mouth two times a week. Blood Pressure Monitor (BLOOD PRESSURE KIT) 1 Each as directed. Dx: essential hypertension Lancets lancets Test blood sugar(s) 2 times daily. Dx: Type 2 DM - Uncontrolled E11.65 Insulin: No flash glucose scanning reader (FREESTYLE TARA 2 READER) 1 Device as directed. Type 2 diabetes uncontrolled, no insulin (Patient not taking: Reported on 01/06/2024) Lancets (FREESTYLE LANCETS) lancets Test blood sugar(s) 2 times daily. Dx: 250.02. Insulin: No (Patient not taking: Reported on 01/06/2024) No current facility-administered medications on file prior to visit. Social History Social History Tobacco Use Smoking status: Former Packs/day: .5 Types: Cigarettes Quit date: 11/02/2022 Years since quittin.2 Smokeless tobacco: Never Tobacco comments: 20+ years smoking Substance Use (more content not included)... [facility] 01-27-2024 History of Present illness Narrative Chief Complaint Patient presents with: follow up on b/s: States thinks yeast infection back which is a large side effect of Jardiance. States not going to keep going through this HPI Tia Blanco is a 68 year old female who presents here today for Above Complaints. Tia is an established patient of Dr. Farrar, and myself. Concerns today.. DM -- Stable with hgA1c 6.5, 3 weeks ago. Current regimen: jardiance 10 mg daily and ozempic 1 mg weekly. Current issue -- continues to get yeast infection over and over again. Has taken diflucan which helps but then symptoms come right back. Has been on metformin but caused itchiness and GI upset so this was discontinued. Not interested in trying this again. Pt is on a very strict diet: gluten free, no carbs, mainly protein and green veggie diet. Pt very anxious about blood sugar readings -- checking 3 x per day. Has not tried buspar regimen yet to help with anxiety. Last 14 Encounter BP Readings: Date: BP: 01/27/2024 124/68 01/06/2024 130/64 01/02/2024 132/82 12/09/2023 130/80 11/19/2023 100/60 11/13/2023 160/70 10/29/2023 150/62 09/14/2023 124/80 07/15/2023 126/74 06/26/2023 122/60 06/19/2023 118/68 04/30/2023 132/82 03/18/2023 130/80 12/10/2022 138/80 Past medical history, appointments, medications, allergies reviewed. Previous Medical History PAST MEDICAL HISTORY Diagnosis Date Aortic stenosis, moderate 08/2019 Benign hypertensive heart disease Celiac disease Diabetes mellitus without mention of complication Diabetes mellitus Fatty liver Grave's disease IBS (irritable bowel syndrome) Medical marijuana use has card Ulcerative colitis, unspecified Vitamin D deficiency Previous Surgical History PAST SURGICAL HISTORY Procedure Laterality Date COLONOSCOPY FLX DX W/COLLJ SPEC WHEN PFRMD 09/09/2013 Colonoscopy ESOPHAGOGASTRODUODENOSCOPY TRANSORAL DIAGNOSTIC 09/09/2013 EGD INFUSE RADIOACTIVE MATERIALS Iodine ablation for Grave's disease LAP UMBILICAL HERNIA REPAIR 02/17/2000 Lap umbilical hernia with a 19cm mesh LAPAROSCOPY SURG CHOLECYSTECTOMY 03/01/2007 Lap Mary with visiport RUQ insertion LIG/TRNSXJ FLP TUBE ABDL/VAG APPR UNI/BI Tubal ligation Family History FAMILY HISTORY Problem Relation Age of Onset Cervical Cancer Sister Diabetes Father Psychiatry Mother Hypertension Father Heart Mother Heart Father Alzheimer's Disease Mother Breast Cancer Sister Patient Allergies ALLERGIES Allergen Reactions Asa [Salicylates] Gluten Unknown Metformin nausea.. can take name brand Prednisone Itching Sulfa (Sulfonamide * Current Medications Current Outpatient Medications on File Prior to Visit Medication Sig ARMOUR THYROID 120 mg tablet Take 1 tablet PO daily in AM semaglutide (OZEMPIC) 1 mg/dose (4 mg/3 mL) pen Inject 1 mg subcutaneously one time a week. blood sugar diagnostic (BLOOD GLUCOSE TEST) test strip Test blood sugar(s) 2 times daily. Dx: Type 2 DM - Uncontrolled E11. Insulin: No empagliflozin (JARDIANCE) 10 mg tablet Take 1 tablet by mouth daily with breakfast. Take 1 tablet once daily in the morning atorvastatin (LIPITOR) 80 mg tablet Take 1 tablet by mouth once daily. clopidogrel (PLAVIX) 75 mg tablet Take 1 tablet by mouth once daily. busPIRone (BUSPAR) 5 mg tablet Take 1 tablet by mouth three times a day as needed. spironolactone (ALDACTONE) 25 mg tablet Take 25 mg by mouth once daily. carvedilol (COREG) 6.25 mg tablet Take 6.25 mg by mouth two times a day with meals. blood sugar diagnostic (FREESTYLE LITE STRIPS) test strip Test blood sugar(s) 8 times daily. Dx: E11.65. Insulin: No elderberry fruit 350 mg cap Take 1 capsule by mouth once daily. ondansetron orally disintegrating (ZOFRAN ODT) 4 mg disintegrating tablet Take 1 tablet by mouth every 8 hours as needed for nausea/vomiting. ergocalciferol 50,000 unit capsule (VITAMIN D2, DRISDOL) Take 1 capsule by mouth two times a week. Blood Pressure Monitor (BLOOD PRESSURE KIT) 1 Each as directed. Dx: essential hypertension Lancets lancets Test blood sugar(s) 2 times daily. Dx: Type 2 DM - Uncontrolled .65 Insulin: No flash glucose scanning reader (FREESTYLE TARA 2 READER) 1 Device as directed. Type 2 diabetes uncontrolled, no insulin (Patient not taking: Reported on 01/06/2024) Lancets (FREESTYLE LANCETS) lancets Test blood sugar(s) 2 times daily. Dx: 250.02. Insulin: No (Patient not taking: Reported on 01/06/2024) No current facility-administered medications on file prior to visit. Social History Social History Tobacco Use Smoking status: Former Packs/day: .5 Types: Cigarettes Quit date: 11/02/2022 Years since quittin.2 Smokeless tobacco: Never Tobacco comments: 20+ years smoking Substance Use Topics Alcohol use: Yes Drug use: No REVIEW OF SYSTEMS: as above Reviewed relevant PMHx, PSHx, Social Hx, current medications and allergies. Review of Symptoms REVIEW OF SYSTEMS See HPI. EXAM: BP 124/68 (BP Site: Left Arm, BP Position: Sitting, BP Cuff Size: Regular Adult) Pulse 64 Resp 16 Wt 74.7 kg (164 lb 9.8 oz) BMI 32.15 kg/m General Appearance: Well appearing, alert, in no acute distress, well-hydrated, well nourished.. Skin: Skin color, texture, turgor normal, no suspicious rashes or lesions. Head: Normocephalic, no masses, lesions, tenderness or abnormalities. Lungs: Lungs clear to auscultation. No wheezing, rhonchi, rales.. Heart: RRR without murmur, gallop, or rubs. No ectopy. Health Maintenance List Meningococcal B Vaccine: Consider Based On Risk(1 of 4 - Increased Risk) Never done MMR Vaccine(1 of 2 - Risk 2-dose series) Never done Hepatitis A Vaccine(1 of 2 - Risk 2-dose series) Never done Mammogram Screening due on 11/16/2014 Colorectal Cancer Screening due on 09/09/2023 Behavioral Health Screening Never done Diabetic Foot Exam due on 12/11/2023 BP Controlled (<130/80) due on 12/11/2023 Hepatitis B Vaccine(1 of 3 - Risk 3-dose series) due on 07/15/2024 RSV Vaccine(1 - 1-dose 60+ series) due on 09/14/2024 DTaP,Tdap,Td Vaccine(1 - Tdap) due on 11/13/2024 Shingrix Vaccine(1 of 2) due on 11/13/2024 Covid-19 Vaccine(1 - 24 season) due on 11/13/2024 Pneumococcal Vaccine: 65+(1 of 2 - PCV) due on 11/13/2024 Influenza Vaccine(Season Ended) due on 05/29/2024 HbA1C due on 07/07/2024 Urine Albumin:Creatinine Ratio due on 11/13/2024 LDL Cholesterol due on 11/13/2024 Dilated Retinal Exam due on 12/08/2024 Annual PCP Team Chronic Disease Visit due on 01/05/2025 Bone Density Screening Completed Hepatitis C Screening Completed Pap Testing Discontinued Advance Directive Discussion Discontinued ASSESSMENT/PLAN: 1. Uncontrolled type 2 diabetes mellitus with hyperglycemia (HCC) - ICD9: 250.02, ICD10: E11.65 (primary diagnosis) Recurrent yeast infections d/t Jardiance regimen. Discontinue jardiance -- given diflucan to treat current symptoms. Increase ozempic to 2 mg daily. RTO as scheuduled in 1.5 months. Lab work as ordered just prior to appt -- including hgA1c. Continue current diet. - SEMAGLUTIDE 2 MG/DOSE (8 MG/3 ML) SUBCUTANEOUS PEN INJECTOR - FLUCONAZOLE 150 MG TABLET 2. Vaginal yeast infection - ICD9: 112.1, ICD10: B37.31 Recurrent d/t jardiance regimen. See above plan of care. - SEMAGLUTIDE 2 MG/DOSE (8 MG/3 ML) SUBCUTANEOUS PEN INJECTOR - FLUCONAZOLE 150 MG TABLET Pt asking to check Mag level with upcoming lab work because she would like to start supplement. RTO in 1.5 months, sooner if needed. Prescription instructions reviewed with patient as applicable. Potential red flag symptoms discussed with the patient. Reviewed appropriate action plan to take if red flag symptoms occur. Patient agreeable to treatment plan. Jacqueline Corbin APRN.TECHNICAL COMMUNICATOR [id number] [place] [address] documented in this encounter [facility] 01-13-2024 Miscellaneous Notes Patient returned call and went over notes below from Jacqueline Candel[employer]EIGN LANGUAGE INSTRUCTOR with understanding. Aware rx sent to pharmacy. Left message to return call. Yes, this can likely be due to Jardiance regimen. Go ahead and take diflucan to treat yeast infection this time and if symptoms return we will switch diabetes regimen at our next appointment. We will discuss options. Thank you, Jacqueline Cadnelario APRN.TECHNICAL COMMUNICATOR Patient calling again, asking if she should stop the Jardiance because she does not want chronic yeast infections. Please advise. Patient calling she was treated for yeast infection on 01/01 from [facility]. Now she has same symptoms itching and white vaginal drainage. Patient now wondering if it is from taking Jardiance. Patient said her blood sugars have been higher in the morning at times. She said she is taking Ozempic and Jardiance. Patient uses [facility] for her pharmacy. Please advise documented in this encounter [facility] 01-06-2024 Note HNO ID: [id number] Author: JACQUELINE CANDELARIO APRN.DEREK Service: ? Author Type: Nurse Practitioner Type: Progress Notes Filed: 01/06/2024 12:13 Note Text: Chief Complaint Patient presents with: blood sugars up and down: States does not know how to eat keeps going up after eating. HPI Tia Blanco is a 68 year old female who presents here today for Above Complaints. Tia is an established patient of Dr. Farrar, and myself. Concerns today... Per TE x2: Patient calling to state she is having difficulty with increased blood sugars despite following a strict diet. Patient reports her blood sugars have been varying from 140-180 in last 24 hours after eating only eggs, 1 piece of gluten free bread, half an orange, chicken sausage, salmon and vegetables. Reports she was on Glimepiride and Ozempic but was recently changed to Jardiance and Ozempic. Asking if Dr. Farrar could advise if she should be eating carbohydrates or not. This nurse encouraged pt to consider speaking with a keyliner/risk assessment consultant to discuss diet management, if agreeable. Patient would rather hold off on speaking with a specialist as of this time. Asking if Dr. Farrar would be able to advise her at this time? Thank you. Pt called to check status and message below. Pt wanted to stress that her blood sugars are higher that she likes. When pt was on a no carb diet her blood sugars were good. Pt not sure what the plan is for her with medication Ozempic and Jardiance. Pt made aware provider has been out of the office and will return next week. Pt asking to have Dr. Farrar look at this next week and advise her. Pt was then seen in [facility] on 01/01 d/t vaginal itching. UTI and STD testing completed. Treated with Diflucan d/t + white discharge . Called with results the next day of + yeast and BV. Pt was also given flagyl regimen at that point. During this appointment, POC glucose was taken and UA showed significant glucose in urine. Latest Ref Rng 01/02/2024 GLUCOSE UA (POCT) Negative mg/dL >=1000 ! BILIRUBIN UA (POCT) Negative Negative KETONE UA (POCT) Negative mg/dL Negative SPECIFIC GRAVITY UA (POCT) 1.005 - 1.030 1.010 HEMOGLOBIN/BLOOD UA (POCT) Negative Small ! PH UA (POCT) 4.5 - 8.0 5.0 PROTEIN UA (POCT) Negative mg/dL Negative UROBILINOGEN UA (POCT) Normal E.U./dL 0.2 NITRITE UA (POCT) Negative Negative LEUKOCYTES UA (POCT) Negative Negative COLOR UA (POCT) Yellow CLARITY UA (POCT) Clear Culture <10,000 CFU/ml Lactose positive gram negative bacilli ! Glucose, Point of Care 74 - 99 mg/dL 140 ! Today in office... Pt reports the same concerns at telephone encounter. Pt reports fasting glucose to be around 120-140 After eating breakfast, will increase into the 200s x hours. Pt feels sick to her stomach when levels are this high. DM regimen switched recently from amaryl to jardiance at recent visit in November. Pt feels this switch is not working as well for her. Prior amaryl regimen was 2 mg BID Last hgA1c was 6.4 in October. Latest Ref Rng 09/08/2023 11/13/2023 11/16/2023 Hemoglobin A1C 4.3 - 5.6 % 6.4 (H) 6.5 (H) 6.4 (H) Estimated Average Glucose mg/dL 137 140 137 Current regimen: ozempic 1 mg weekly and jardiance 10 mg daily. Pt checking blood sugar 6-8 times per day. Does not qualify for continuous glucose meter d/t diabetes so well controlled. Pt never took buspar as prescribed prior for anxiety. Does not want to rely on medication like this. Pt agrees anxiety makes her check blood sugar so often. Past medical history, appointments, medications, allergies reviewed. Previous Medical History PAST MEDICAL HISTORY Diagnosis Date Aortic stenosis, moderate 08/2019 Benign hypertensive heart disease Celiac disease Diabetes mellitus without mention of complication Diabetes mellitus Fatty liver Grave's disease IBS (irritable bowel syndrome) Medical marijuana use has card Ulcerative colitis, unspecified Vitamin D deficiency Previous Surgical History PAST SURGICAL HISTORY Procedure Laterality Date COLONOSCOPY FLX DX W/COLLJ SPEC WHEN PFRMD 09/09/2013 Colonoscopy ESOPHAGOGASTRODUODENOSCOPY TRANSORAL DIAGNOSTIC 09/09/2013 EGD INFUSE RADIOACTIVE MATERIALS Iodine ablation for Grave's disease LAP UMBILICAL HERNIA REPAIR 02/17/2000 Lap umbilical hernia with a 19cm mesh LAPAROSCOPY SURG CHOLECYSTECTOMY 03/01/2007 Lap Mary with visiport RUQ insertion LIG/TRNSXJ FLP TUBE ABDL/VAG APPR UNI/BI Tubal ligation Family History FAMILY HISTORY Problem Relation Age of Onset Cervical Cancer Sister Diabetes Father Psychiatry Mother Hypertension Father Heart Mother Heart Father Alzheimer's Disease Mother Breast Cancer Sister Patient Allergies ALLERGIES Allergen Reactions Asa [Salicylates] Gluten Unknown Metformin nausea.. can take name brand Prednisone Itching Sulfa (Sulfonamide * Current Medications Current Outpatient Med (more content not included)... [facility] 01-06-2024 History of Present illness Narrative Chief Complaint Patient presents with: blood sugars up and down: States does not know how to eat keeps going up after eating. HPI Tia Blanco is a 68 year old female who presents here today for Above Complaints. Tia is an established patient of Dr. Farrar, DO and myself. Concerns today... Per TE x2: Patient calling to state she is having difficulty with increased blood sugars despite following a strict diet. Patient reports her blood sugars have been varying from 140-180 in last 24 hours after eating only eggs, 1 piece of gluten free bread, half an orange, chicken sausage, salmon and vegetables. Reports she was on Glimepiride and Ozempic but was recently changed to Jardiance and Ozempic. Asking if Dr. Farrar could advise if she should be eating carbohydrates or not. This nurse encouraged pt to consider speaking with a keyliner/risk assessment consultant to discuss diet management, if agreeable. Patient would rather hold off on speaking with a specialist as of this time. Asking if Dr. Farrar would be able to advise her at this time? Thank you. Pt called to check status and message below. Pt wanted to stress that her blood sugars are higher that she likes. When pt was on a no carb diet her blood sugars were good. Pt not sure what the plan is for her with medication Ozempic and Jardiance. Pt made aware provider has been out of the office and will return next week. Pt asking to have Dr. Farrar look at this next week and advise her. Pt was then seen in [facility] on 01/01 d/t vaginal itching. UTI and STD testing completed. Treated with Diflucan d/t + white discharge . Called with results the next day of + yeast and BV. Pt was also given flagyl regimen at that point. During this appointment, POC glucose was taken and UA showed significant glucose in urine. Latest Ref Rng 01/02/2024 GLUCOSE UA (POCT) Negative mg/dL >=1000 ! BILIRUBIN UA (POCT) Negative Negative KETONE UA (POCT) Negative mg/dL Negative SPECIFIC GRAVITY UA (POCT) 1.005 - 1.030 1.010 HEMOGLOBIN/BLOOD UA (POCT) Negative Small ! PH UA (POCT) 4.5 - 8.0 5.0 PROTEIN UA (POCT) Negative mg/dL Negative UROBILINOGEN UA (POCT) Normal E.U./dL 0.2 NITRITE UA (POCT) Negative Negative LEUKOCYTES UA (POCT) Negative Negative COLOR UA (POCT) Yellow CLARITY UA (POCT) Clear Culture <10,000 CFU/ml Lactose positive gram negative bacilli ! Glucose, Point of Care 74 - 99 mg/dL 140 ! Today in office... Pt reports the same concerns at telephone encounter. Pt reports fasting glucose to be around 120-140 After eating breakfast, will increase into the 200s x hours. Pt feels sick to her stomach when levels are this high. DM regimen switched recently from amaryl to jardiance at recent visit in November. Pt feels this switch is not working as well for her. Prior amaryl regimen was 2 mg BID Last hgA1c was 6.4 in October. Latest Ref Rng 09/08/2023 11/13/2023 11/16/2023 Hemoglobin A1C 4.3 - 5.6 % 6.4 (H) 6.5 (H) 6.4 (H) Estimated Average Glucose mg/dL 137 140 137 Current regimen: ozempic 1 mg weekly and jardiance 10 mg daily. Pt checking blood sugar 6-8 times per day. Does not qualify for continuous glucose meter d/t diabetes so well controlled. Pt never took buspar as prescribed prior for anxiety. Does not want to rely on medication like this. Pt agrees anxiety makes her check blood sugar so often. Past medical history, appointments, medications, allergies reviewed. Previous Medical History PAST MEDICAL HISTORY Diagnosis Date Aortic stenosis, moderate 08/2019 Benign hypertensive heart disease Celiac disease Diabetes mellitus without mention of complication Diabetes mellitus Fatty liver Grave's disease IBS (irritable bowel syndrome) Medical marijuana use has card Ulcerative colitis, unspecified Vitamin D deficiency Previous Surgical History PAST SURGICAL HISTORY Procedure Laterality Date COLONOSCOPY FLX DX W/COLLJ SPEC WHEN PFRMD 09/09/2013 Colonoscopy ESOPHAGOGASTRODUODENOSCOPY TRANSORAL DIAGNOSTIC 09/09/2013 EGD INFUSE RADIOACTIVE MATERIALS Iodine ablation for Grave's disease LAP UMBILICAL HERNIA REPAIR 02/17/2000 Lap umbilical hernia with a 19cm mesh LAPAROSCOPY SURG CHOLECYSTECTOMY 03/01/2007 Lap Mary with visiport RUQ insertion LIG/TRNSXJ FLP TUBE ABDL/VAG APPR UNI/BI Tubal ligation Family History FAMILY HISTORY Problem Relation Age of Onset Cervical Cancer Sister Diabetes Father Psychiatry Mother Hypertension Father Heart Mother Heart Father Alzheimer's Disease Mother Breast Cancer Sister Patient Allergies ALLERGIES Allergen Reactions Asa [Salicylates] Gluten Unknown Metformin nausea.. can take name brand Prednisone Itching Sulfa (Sulfonamide * Current Medications Current Outpatient Medications on File Prior to Visit Medication Sig ARMOUR THYROID 120 mg tablet Take 1 tablet PO daily in AM semaglutide (OZEMPIC) 1 mg/dose (4 mg/3 mL) pen Inject 1 mg subcutaneously one time a week. metroNIDAZOLE (FLAGYL) 500 mg tablet Take 1 tablet by mouth two times a day for 7 days. empagliflozin (JARDIANCE) 10 mg tablet Take 1 tablet by mouth daily with breakfast. Take 1 tablet once daily in the morning atorvastatin (LIPITOR) 80 mg tablet Take 1 tablet by mouth once daily. clopidogrel (PLAVIX) 75 mg tablet Take 1 tablet by mouth once daily. busPIRone (BUSPAR) 5 mg tablet Take 1 tablet by mouth three times a day as needed. spironolactone (ALDACTONE) 25 mg tablet Take 25 mg by mouth once daily. carvedilol (COREG) 6.25 mg tablet Take 6.25 mg by mouth two times a day with meals. flash glucose scanning reader (FREESTYLE TARA 2 READER) 1 Device as directed. Type 2 diabetes uncontrolled, no insulin blood sugar diagnostic (FREESTYLE LITE STRIPS) test strip Test blood sugar(s) 8 times daily. Dx: E11.65. Insulin: No elderberry fruit 350 mg cap Take 1 capsule by mouth once daily. ondansetron orally disintegrating (ZOFRAN ODT) 4 mg disintegrating tablet Take 1 tablet by mouth every 8 hours as needed for nausea/vomiting. ergocalciferol 50,000 unit capsule (VITAMIN D2, DRISDOL) Take 1 capsule by mouth two times a week. Blood Pressure Monitor (BLOOD PRESSURE KIT) 1 Each as directed. Dx: essential hypertension blood sugar diagnostic (BLOOD GLUCOSE TEST) test strip Test blood sugar(s) 2 times daily. Dx: Type 2 DM - Uncontrolled E11.65 Insulin: No Lancets lancets Test blood sugar(s) 2 times daily. Dx: Type 2 DM - Uncontrolled E11.65 Insulin: No Lancets (FREESTYLE LANCETS) lancets Test blood sugar(s) 2 times daily. Dx: 250.02. Insulin: No No current facility-administered medications on file prior to visit. Social History Social History Tobacco Use Smoking status: Former Packs/day: .5 Types: Cigarettes Quit date: 11/02/2022 Years since quittin.1 Smokeless tobacco: Never Tobacco comments: 20+ years smoking Substance Use Topics Alcohol use: Yes Drug use: No REVIEW OF SYSTEMS: as above Reviewed relevant PMHx, PSHx, Social Hx, current medications and allergies. Review of Symptoms REVIEW OF SYSTEMS See HPI. EXAM: BP 130/64 (BP Site: Left Arm, BP Position: Sitting, BP Cuff Size: Regular Adult) Pulse 62 Resp 16 Wt 74.4 kg (164 lb) BMI 32.03 kg/m General Appearance: Well appearing, alert, in no acute distress, well-hydrated, well nourished.. Skin: Skin color, texture, turgor normal, no suspicious rashes or lesions. Head: Normocephalic, no masses, lesions, tenderness or abnormalities. Lungs: Lungs clear to auscultation. No wheezing, rhonchi, rales.. Heart: RRR without murmur, gallop, or rubs. No ectopy. Health Maintenance List Meningococcal B Vaccine: Consider Based On Risk(1 of 4 - Increased Risk) Never done MMR Vaccine(1 of 2 - Risk 2-dose series) Never done Hepatitis A Vaccine(1 of 2 - Risk 2-dose series) Never done Mammogram Screening due on 11/16/2014 Colorectal Cancer Screening due on 09/09/2023 Behavioral Health Screening Never done BP Controlled (<130/80) due on 12/11/2023 Diabetic Foot Exam due on 12/11/2023 Hepatitis B Vaccine(1 of 3 - Risk 3-dose series) due on 07/15/2024 RSV Vaccine(1 - 1-dose 60+ series) due on 09/14/2024 DTaP,Tdap,Td Vaccine(1 - Tdap) due on 11/13/2024 Shingrix Vaccine(1 of 2) due on 11/13/2024 Covid-19 Vaccine(1 - 2022-24 season) due on 11/13/2024 Pneumococcal Vaccine: 65+(1 of 2 - PCV) due on 11/13/2024 HbA1C due on 05/16/2024 Influenza Vaccine(Season Ended) due on 05/29/2024 Urine Albumin:Creatinine Ratio due on 11/13/2024 LDL Cholesterol due on 11/13/2024 Dilated Retinal Exam due on 12/08/2024 Annual PCP Team Chronic Disease Visit due on 12/08/2024 Bone Density Screening Completed Hepatitis C Screening Completed Pap Testing Discontinued Advance Directive Discussion Discontinued ASSESSMENT/PLAN: 1. Uncontrolled type 2 diabetes mellitus with hyperglycemia (HCC) - ICD9: 250.02, ICD10: E11.65 (primary diagnosis) - Controlled POC HhA1c at 6.5 - Continue current medications - take BG twice daily ONLY, fasting and at bedtime (and when not feeling well). No need to be checking 6-8 x per day with such stable lab levels. This is causing her anxiety. - Blood glucose monitoring on a twice daily schedule - Counseled on healthy diet and regular exercise - Discussed need for and benefit of weight loss. BMI 32.03 kg/(m^2) - Follow up in 1 month, sooner should any other issues arise. - BLOOD SUGAR DIAGNOSTIC STRIPS - HEMOGLOBIN A1C (POC) 2. Situational anxiety - ICD9: 300.09, ICD10: F41.8 Discussed trying Buspar as prescribed prior. Pt agreeable. RTO in 1 month to reassess. Long discussion in office about normal blood glucose levels and pt being at goal with current readings. Discussed risk factors with pt. RTO in 1 months, sooner if needed. During this patient visit I have spent approximately 35 minutes in counseling regarding medications and test results and coordinating care. Prescription instructions reviewed with patient as applicable. Potential red flag symptoms discussed with the patient. Reviewed appropriate action plan to take if red flag symptoms occur. Patient agreeable to treatment plan. Jacqueline Corbin APRN.TECHNICAL COMMUNICATOR [address] [place] [address] documented in this encounter [facility] 01-06-2024 Miscellaneous Notes Noted. Will address at appointment today. Thank you, Jacqueline Candelario APRN.TECHNICAL COMMUNICATOR Pt called in to check status. Booked pt for apt today. Robert Ulloa LPN Pt called to check status and message below. Pt wanted to stress that her blood sugars are higher that she likes. When pt was on a no carb diet her blood sugars were good. Pt not sure what the plan is for her with medication Ozempic and Jardiance. Pt made aware provider has been out of the office and will return next week. Pt asking to have Dr. Farrar look at this next week and advise her. Robert Ulloa LPN Patient calling to state she is having difficulty with increased blood sugars despite following a strict diet. Patient reports her blood sugars have been varying from 140-180 in last 24 hours after eating only eggs, 1 piece of gluten free bread, half an orange, chicken sausage, salmon and vegetables. Reports she was on Glimepiride and Ozempic but was recently changed to Jardiance and Ozempic. Asking if Dr. Farrar could advise if she should be eating carbohydrates or not. This nurse encouraged pt to consider speaking with a keyliner/risk assessment consultant to discuss diet management, if agreeable. Patient would rather hold off on speaking with a specialist as of this time. Asking if Dr. Farrar would be able to advise her at this time? Thank you. documented in this encounter [facility] 01-06-2024 Miscellaneous Notes Patient has been identified by name and date of : Yes, Provider Dr. Farrar Date 01/06/24 Time 8:58 am Patient phones for refill(s): Requested Prescriptions Pending Prescriptions Disp Refills ARMOUR THYROID 120 mg tablet 90 tablet 1 Sig: Take 1 tablet PO daily in AM semaglutide (OZEMPIC) 1 mg/dose (4 mg/3 mL) pen 9 mL 1 Sig: Inject 1 mg subcutaneously one time a week. Date of last office visit in primary care: 12/09/2023 Date of next office visit in primary care: 03/21/2024 Please advise. Thank you. Robert Ulloa LPN. documented in this encounter [facility] 01-03-2024 Miscellaneous Notes Patient identified by name and date of . Patient advised of + yeast and BV test result. She was prescribed diflucan at yesterday's visit. I sent Rx for Flagyl to her pharmacy today. Altagracia Welch APRN.TECHNICAL COMMUNICATOR documented in this encounter [facility] 01-02-2024 Note HNO ID: [id number] Author: JEMIMA HERNÁNDEZ APRN.TECHNICAL COMMUNICATOR Service: ? Author Type: Nurse Practitioner Type: Progress Notes Filed: 01/02/2024 13:14 Note Text: This note was created using NoteWriter. Subjective Tia Blanco is a 68 year old female. 68 year old female with PMH HTN, hyperlipidemia, renal artery stenosis, DM, thyroid and anxiety presents for vaginal complaints. Acute onset yesterday +vaginal itching I want to take a wire brush to my vagina +burning +frequency Recently had DM medicine changed-cites sugars have been high Recently changed to Jardiance Also endorses she changed her toilet paper. Denies fever or chills Denies N/V/D Denies recent coitus Denies vaginal bleeding. Denies vaginal discharge Denies /reproductive surgery Denies using homeopathic or OTC medicines SIDEWALK INSPECTOR PCP is Dr. Farrar The history is provided by the patient. No language asst was used. Vaginal Problem This is a new problem. The current episode started yesterday. The problem occurs constantly. The problem has been gradually worsening. Associated symptoms include urinary symptoms. Pertinent negatives include no abdominal pain, anorexia, arthralgias, change in bowel habit, chest pain, chills, congestion, coughing, diaphoresis, fatigue, fever, headaches, joint swelling, myalgias, nausea, neck pain, numbness, rash, sore throat, swollen glands, vertigo, visual change, vomiting or weakness. Nothing aggravates the symptoms. She has tried nothing for the symptoms. The treatment provided no relief. PAST MEDICAL HISTORY Diagnosis Date Aortic stenosis, moderate 08/2019 Benign hypertensive heart disease Celiac disease Diabetes mellitus without mention of complication Diabetes mellitus Fatty liver Grave's disease IBS (irritable bowel syndrome) Medical marijuana use has card Ulcerative colitis, unspecified Vitamin D deficiency PAST SURGICAL HISTORY Procedure Laterality Date COLONOSCOPY FLX DX W/COLLJ SPEC WHEN PFRMD 09/09/2013 Colonoscopy ESOPHAGOGASTRODUODENOSCOPY TRANSORAL DIAGNOSTIC 09/09/2013 EGD INFUSE RADIOACTIVE MATERIALS Iodine ablation for Grave's disease LAP UMBILICAL HERNIA REPAIR 02/17/2000 Lap umbilical hernia with a 19cm mesh LAPAROSCOPY SURG CHOLECYSTECTOMY 03/01/2007 Lap Mary with visiport RUQ insertion LIG/TRNSXJ FLP TUBE ABDL/VAG APPR UNI/BI Tubal ligation ALLERGIES Asa [Salicylates], Gluten, Metformin, Prednisone, and Sulfa (Sulfonamide Antibiotics) MEDICATIONS empagliflozin (JARDIANCE) 10 mg tablet Take 1 tablet by mouth daily with breakfast. Take 1 tablet once daily in the morning atorvastatin (LIPITOR) 80 mg tablet Take 1 tablet by mouth once daily. clopidogrel (PLAVIX) 75 mg tablet Take 1 tablet by mouth once daily. busPIRone (BUSPAR) 5 mg tablet Take 1 tablet by mouth three times a day as needed. spironolactone (ALDACTONE) 25 mg tablet Take 25 mg by mouth once daily. carvedilol (COREG) 6.25 mg tablet Take 6.25 mg by mouth two times a day with meals. semaglutide (OZEMPIC) 1 mg/dose (4 mg/3 mL) pen Inject 1 mg subcutaneously one time a week. flash glucose scanning reader (FREESTYLE TARA 2 READER) 1 Device as directed. Type 2 diabetes uncontrolled, no insulin ARMOUR THYROID 120 mg tablet Take 1 tablet PO daily in AM blood sugar diagnostic (FREESTYLE LITE STRIPS) test strip Test blood sugar(s) 8 times daily. Dx: E11.65. Insulin: No elderberry fruit 350 mg cap Take 1 capsule by mouth once daily. ondansetron orally disintegrating (ZOFRAN ODT) 4 mg disintegrating tablet Take 1 tablet by mouth every 8 hours as needed for nausea/vomiting. ergocalciferol 50,000 unit capsule (VITAMIN D2, DRISDOL) Take 1 capsule by mouth two times a week. Blood Pressure Monitor (BLOOD PRESSURE KIT) 1 Each as directed. Dx: essential hypertension blood sugar diagnostic (BLOOD GLUCOSE TEST) test strip Test blood sugar(s) 2 times daily. Dx: Type 2 DM - Uncontrolled E11.65 Insulin: No Lancets lancets Test blood sugar(s) 2 times daily. Dx: Type 2 DM - Uncontrolled E11.65 Insulin: No Lancets (FREESTYLE LANCETS) lancets Test blood sugar(s) 2 times daily. Dx: 250.02. Insulin: No fluconazole (DIFLUCAN) 150 mg tablet Take 1 tablet by mouth once daily for 1 day. FAMILY HISTORY Problem Relation Age of Onset Cervical Cancer Sister Diabetes Father Psychiatry Mother Hypertension Father Heart Mother Heart Father Alzheimer's Disease Mother Breast Cancer Sister Social History Tobacco Use Smoking status: Former Packs/day: .5 Types: Cigarettes Quit date: 11/02/2022 Years since quittin.1 Smokeless tobacco: Never Tobacco comments: 20+ years smoking Substance Use Topics Alcohol use: Yes Drug use: No Review of Systems Constitutional: Negative for chills, diaphoresis, fatigue and fever. HENT: Negative for congestion and sore throat. Eyes: Negative for photophobia, pain, discharge, redness, itching and visual dis (more content not included)... [facility] 01-02-2024 History of Present illness Narrative This note was created using Plyferiter. Subjective Tia Blanco is a 68 year old female. 68 year old female with PMH HTN, hyperlipidemia, renal artery stenosis, DM, thyroid and anxiety presents for vaginal complaints. Acute onset yesterday +vaginal itching I want to take a wire brush to my vagina +burning +frequency Recently had DM medicine changed-cites sugars have been high Recently changed to Jardiance Also endorses she changed her toilet paper. Denies fever or chills Denies N/V/D Denies recent coitus Denies vaginal bleeding. Denies vaginal discharge Denies /reproductive surgery Denies using homeopathic or OTC medicines SIDEWALK INSPECTOR PCP is Dr. Farrar The history is provided by the patient. No language asst was used. Vaginal Problem This is a new problem. The current episode started yesterday. The problem occurs constantly. The problem has been gradually worsening. Associated symptoms include urinary symptoms. Pertinent negatives include no abdominal pain, anorexia, arthralgias, change in bowel habit, chest pain, chills, congestion, coughing, diaphoresis, fatigue, fever, headaches, joint swelling, myalgias, nausea, neck pain, numbness, rash, sore throat, swollen glands, vertigo, visual change, vomiting or weakness. Nothing aggravates the symptoms. She has tried nothing for the symptoms. The treatment provided no relief. PAST MEDICAL HISTORY Diagnosis Date Aortic stenosis, moderate 08/2019 Benign hypertensive heart disease Celiac disease Diabetes mellitus without mention of complication Diabetes mellitus Fatty liver Grave's disease IBS (irritable bowel syndrome) Medical marijuana use has card Ulcerative colitis, unspecified Vitamin D deficiency PAST SURGICAL HISTORY Procedure Laterality Date COLONOSCOPY FLX DX W/COLLJ SPEC WHEN PFRMD 09/09/2013 Colonoscopy ESOPHAGOGASTRODUODENOSCOPY TRANSORAL DIAGNOSTIC 09/09/2013 EGD INFUSE RADIOACTIVE MATERIALS Iodine ablation for Grave's disease LAP UMBILICAL HERNIA REPAIR 02/17/2000 Lap umbilical hernia with a 19cm mesh LAPAROSCOPY SURG CHOLECYSTECTOMY 03/01/2007 Lap Mary with visiport RUQ insertion LIG/TRNSXJ FLP TUBE ABDL/VAG APPR UNI/BI Tubal ligation ALLERGIES Asa [Salicylates], Gluten, Metformin, Prednisone, and Sulfa (Sulfonamide Antibiotics) MEDICATIONS empagliflozin (JARDIANCE) 10 mg tablet Take 1 tablet by mouth daily with breakfast. Take 1 tablet once daily in the morning atorvastatin (LIPITOR) 80 mg tablet Take 1 tablet by mouth once daily. clopidogrel (PLAVIX) 75 mg tablet Take 1 tablet by mouth once daily. busPIRone (BUSPAR) 5 mg tablet Take 1 tablet by mouth three times a day as needed. spironolactone (ALDACTONE) 25 mg tablet Take 25 mg by mouth once daily. carvedilol (COREG) 6.25 mg tablet Take 6.25 mg by mouth two times a day with meals. semaglutide (OZEMPIC) 1 mg/dose (4 mg/3 mL) pen Inject 1 mg subcutaneously one time a week. flash glucose scanning reader (FREESTYLE TARA 2 READER) 1 Device as directed. Type 2 diabetes uncontrolled, no insulin ARMOUR THYROID 120 mg tablet Take 1 tablet PO daily in AM blood sugar diagnostic (FREESTYLE LITE STRIPS) test strip Test blood sugar(s) 8 times daily. Dx: E11.65. Insulin: No elderberry fruit 350 mg cap Take 1 capsule by mouth once daily. ondansetron orally disintegrating (ZOFRAN ODT) 4 mg disintegrating tablet Take 1 tablet by mouth every 8 hours as needed for nausea/vomiting. ergocalciferol 50,000 unit capsule (VITAMIN D2, DRISDOL) Take 1 capsule by mouth two times a week. Blood Pressure Monitor (BLOOD PRESSURE KIT) 1 Each as directed. Dx: essential hypertension blood sugar diagnostic (BLOOD GLUCOSE TEST) test strip Test blood sugar(s) 2 times daily. Dx: Type 2 DM - Uncontrolled E11.65 Insulin: No Lancets lancets Test blood sugar(s) 2 times daily. Dx: Type 2 DM - Uncontrolled E11.65 Insulin: No Lancets (FREESTYLE LANCETS) lancets Test blood sugar(s) 2 times daily. Dx: 250.02. Insulin: No fluconazole (DIFLUCAN) 150 mg tablet Take 1 tablet by mouth once daily for 1 day. FAMILY HISTORY Problem Relation Age of Onset Cervical Cancer Sister Diabetes Father Psychiatry Mother Hypertension Father Heart Mother Heart Father Alzheimer's Disease Mother Breast Cancer Sister Social History Tobacco Use Smoking status: Former Packs/day: .5 Types: Cigarettes Quit date: 11/02/2022 Years since quittin.1 Smokeless tobacco: Never Tobacco comments: 20+ years smoking Substance Use Topics Alcohol use: Yes Drug use: No Review of Systems Constitutional: Negative for chills, diaphoresis, fatigue and fever. HENT: Negative for congestion and sore throat. Eyes: Negative for photophobia, pain, discharge, redness, itching and visual disturbance. Respiratory: Negative for apnea, cough, choking and chest tightness. Cardiovascular: Negative for chest pain, palpitations and leg swelling. Gastrointestinal: Negative for abdominal pain, anorexia, change in bowel habit, nausea and vomiting. Genitourinary: Positive for dysuria and frequency. Negative for vaginal discharge and vaginal pain. +vaginal discharge Musculoskeletal: Negative for arthralgias, joint swelling, myalgias and neck pain. Skin: Negative for color change, pallor, rash and wound. Allergic/Immunologic: Negative for environmental allergies, food allergies and immunocompromised state. Neurological: Negative for vertigo, weakness, numbness and headaches. Psychiatric/Behavioral: Negative for agitation and behavioral problems. Objective BP 132/82 Pulse 80 Temp 36.3 C (97.4 F) Resp 16 Wt 74.1 kg (163 lb 5.8 oz) SpO2 98% BMI 31.90 kg/m Physical Exam Vitals and nursing note reviewed. Exam conducted with a trade economist present. Constitutional: General: She is not in acute distress. Appearance: Normal appearance. She is normal weight. She is not ill-appearing, toxic-appearing or diaphoretic. HENT: Head: Normocephalic and atraumatic. Right Ear: Ear canal and external ear normal. Left Ear: Ear canal and external ear normal. Nose: Nose normal. No congestion or rhinorrhea. Mouth/Throat: Mouth: Mucous membranes are moist. Pharynx: No oropharyngeal exudate or posterior oropharyngeal erythema. Eyes: General: Right eye: No discharge. Left eye: No discharge. Extraocular Movements: Extraocular movements intact. Conjunctiva/sclera: Conjunctivae normal. Pupils: Pupils are equal, round, and reactive to light. Cardiovascular: Rate and Rhythm: Normal rate and regular rhythm. Pulses: Normal pulses. Heart sounds: Normal heart sounds. No murmur heard. No friction rub. Pulmonary: Effort: Pulmonary effort is normal. No respiratory distress. Breath sounds: Normal breath sounds. No stridor. No wheezing, rhonchi or rales. Chest: Chest wall: No tenderness. Abdominal: General: Abdomen is flat. There is no distension. Palpations: Abdomen is soft. There is no mass. Tenderness: There is no abdominal tenderness. There is no right CVA tenderness, left CVA tenderness, guarding or rebound. Hernia: No hernia is present. Genitourinary: Exam position: Lithotomy position. Labia: Right: No rash, tenderness, lesion or injury. Left: No rash, tenderness, lesion or injury. Cervix: Erythema present. Comments: Scant white vaginal discharge noted. +erythema cervical OS Musculoskeletal: General: No swelling, tenderness, deformity or signs of injury. Normal range of motion. Cervical back: Normal range of motion and neck supple. No rigidity. Right lower leg: No edema. Left lower leg: No edema. Lymphadenopathy: Cervical: No cervical adenopathy. Skin: General: Skin is warm and dry. Capillary Refill: Capillary refill takes less than 2 seconds. Coloration: Skin is not jaundiced or pale. Findings: No bruising, erythema, lesion or rash. Neurological: General: No focal deficit present. Mental Status: She is alert and oriented to person, place, and time. Cranial Nerves: No cranial nerve deficit. Sensory: No sensory deficit. Motor: No weakness. Coordination: Coordination normal. Gait: Gait normal. Psychiatric: Mood and Affect: Mood normal. Behavior: Behavior normal. Thought Content: Thought content normal. Judgment: Judgment normal. Assessment and Plan ASSESSMENT/PLAN: 1. Vaginal itching - ICD9: 698.1, ICD10: N89.8 (primary diagnosis) Acute onset yesterday Pelvic exam reveals +scant white discharge noted CX obtained Will treat with Diflucan Remaining cx pending - JOLANTA/TRICHOMONAS NAAT - BACTERIAL VAGINOSIS NAAT - GONORRHEA/CHLAMYDIA NAAT - URINE CULTURE - UA DIP, URINE (POC) - GLUCOSE, BLOOD (POC) 2. Dysuria - ICD9: 788.1, ICD10: R30.0 acute - UA positive for hematuria and glucose - Send urine for culture - Patient education for prevention given - JOLANTA/TRICHOMONAS NAAT - BACTERIAL VAGINOSIS NAAT - GONORRHEA/CHLAMYDIA NAAT - URINE CULTURE - UA DIP, URINE (POC) 3. Glucosuria - ICD9: 791.5, ICD10: R81 UA dip reveals 1000 mg POC reveals sugar 140 Jemima Hernández APRN.DEREK documented in this encounter [facility] 01-02-2024 Miscellaneous Notes Patient calling with complaint of moderate to severe vaginal itching. No other symptoms reported. She thinks she may have a yeast infection due to elevated blood sugars. Reviewed triage protocol guidelines with patient. Disposition: See PCP within 24 hours. Advised EC evaluation. Patient is not sure she will come in to [facility]. Advise EC online. She may try this. Emily Osei RN Reason for Disposition Itching or rash of female genital area (e.g., labia, vagina, vulva) MODERATE-SEVERE itching (i.e., interferes with school, work, or sleep) Answer Assessment - Initial Assessment Questions 1. SYMPTOM: patient calling with symptoms of vaginal itching 2. LOCATION: vaginal area 3. ONSET: today 4. PAIN: No pain reported 5. ITCHING: moderate to severe itching 6. CAUSE: history of yeast infections 7. OTHER SYMPTOMS: Denies fever, itching, vaginal bleeding, pain with urination, injury to genital area, vaginal foreign body) 8. : NO Protocols used: Vaginal Rvsosccs-[id number], Vulvar [id number] documented in this encounter [facility] 12-09-2023 Note HNO ID: [id number] Author: PREET FARRAR, DO Service: ? Author Type: Physician Type: Progress Notes Filed: 12/09/2023 21:46 Note Text: No chief complaint on file. HPI: Tia Blanco is a 68 year old female who presents to the office today for review of health conditions. Concerns today: Recently she has been overwhelmed with stressors with the hospital taking her off her HTN medications and her BLOOD PRESSURE was out of control. 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 Overton that she sees for BLOOD PRESSURE control and restarted on spironolactone as well as coreg twice a day. She is tolerating these without concern. She is frustrated recently with her blood glucose being from 180-200s in the morning sometimes when she wakes up. She doesn't feel that her medications are working as they should- she is taking glimepiride twice a day as well as ozempic injection 1 mg per week without SE. She feels that she needs a medication change She is going to be seeing Dr. Bradley vascular specialist in the next 1 week after additional testing for carotid artery atherosclerosis- she is having a CT done next week. She is willing to see a bilingual spanish inbound sales- hasn't had any obvious cardiac symptoms but she is concerned since she does have a history of tobacco use / smoking and has significant artery disease in carotid arteries. Ms. Blanco has past history of diabetes. Since our last visit she denies excessive thirst or increased frequency of urination, chest pain or dyspnea , new or unusual visual symptoms, and low sugar/hypoglycemic reactions. Depression- no. Follows a diabetic diet some of the time. She is compliant with medication(s) and is tolerating med(s) without any side effects. She reports checking her glucose on a three times a day schedule with sugars in the fasting 180-200 range. Patient's last HgA1C was Hemoglobin A1C (%) Date Value 11/16/2023 6.4 11/13/2023 6.5 11/13/2021 6.3 04/16/2021 6.3 ) Last Ophthalmology exam was within the past 12 months Ms. Blanco reports history of hyperlipidemia. Current therapy includes atorvastatin (Lipitor) 80 mg. Denies side effects of muscle weakness or achiness. Her most recent lipid panels are reviewed. Cholesterol, Total (mg/dL) Date Value 11/13/2023 121 04/16/2021 193 HDL Cholesterol (mg/dL) Date Value 11/13/2023 77 04/16/2021 58 LDL Cholesterol (mg/dL) Date Value 11/13/2023 24 04/16/2021 91 Triglyceride (mg/dL) Date Value 11/13/2023 99 04/16/2021 222 Ms. Blanco indicates a history of hypertension and states that she is feeling well and denies any symptoms referable to elevated blood pressure. Specifically denies headache, chest pain, palpitations, dyspnea, and peripheral edema. Patient denies any side effects of her medication(s) and is compliant with their regimen. Last 3 Encounter BP Readings: Date: BP: 12/09/2023 130/80 11/19/2023 100/60 11/13/2023 160/70 She watches her diet for sodium, low fat and low cholesterol some of the time. She does not check BP's generally. Tia gets sporadic irregular exercise. PAST MEDICAL HISTORY Diagnosis Date Aortic stenosis, moderate 08/2019 Benign hypertensive heart disease Celiac disease Diabetes mellitus without mention of complication Diabetes mellitus Fatty liver Grave's disease IBS (irritable bowel syndrome) Medical marijuana use has card Ulcerative colitis, unspecified Vitamin D deficiency PAST SURGICAL HISTORY Procedure Laterality Date COLONOSCOPY FLX DX W/COLLJ SPEC WHEN PFRMD 09/09/2013 Colonoscopy ESOPHAGOGASTRODUODENOSCOPY TRANSORAL DIAGNOSTIC 09/09/2013 EGD INFUSE RADIOACTIVE MATERIALS Iodine ablation for Grave's disease LAP UMBILICAL HERNIA REPAIR 02/17/2000 Lap umbilical hernia with a 19cm mesh LAPAROSCOPY SURG CHOLECYSTECTOMY 03/01/2007 Lap Mary with visiport RUQ insertion LIG/TRNSXJ FLP TUBE ABDL/VAG APPR UNI/BI Tubal ligation Social History Tobacco Use Smoking status: Former Packs/day: .5 Types: Cigarettes Quit date: 11/02/2022 Years since quittin.1 Smokeless tobacco: Never Tobacco comments: 20+ years smoking Substance Use Topics Alcohol use: Yes Drug use: No FAMILY HISTORY Problem Relation Age of Onset Cervical Cancer Sister Diabetes Father Psychiatry Mother Hypertension Father Heart Mother Heart Father Alzheimer's Disease Mother Breast Cancer Sister Allergies: ALLERGIES Allergen Reactions Asa [Salicylates] Gluten Unknown Metformin nausea.. can take name brand Prednisone Itching Sulfa (Sulfonamide * Current Meds: atorvastatin (LIPITOR) 80 mg tablet Take 1 tablet by mouth once daily. clopidogrel (PLAVIX) 75 mg tablet Take 1 tablet by mouth once daily. busPIRone (BUSPAR) 5 mg tablet Take 1 tablet by mouth three times a day as needed. spironolactone (ALDACTONE) 25 mg tablet Take 25 mg by mouth once daily. carvedilol (COREG) 6.25 mg (more content not included)... [facility] 12-09-2023 History of Present illness Narrative No chief complaint on file. HPI: Tia Blanco is a 68 year old female who presents to the office today for review of health conditions. Concerns today: Recently she has been overwhelmed with stressors with the hospital taking her off her HTN medications and her BLOOD PRESSURE was out of control. 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 Overton that she sees for BLOOD PRESSURE control and restarted on spironolactone as well as coreg twice a day. She is tolerating these without concern. She is frustrated recently with her blood glucose being from 180-200s in the morning sometimes when she wakes up. She doesn't feel that her medications are working as they should- she is taking glimepiride twice a day as well as ozempic injection 1 mg per week without SE. She feels that she needs a medication change She is going to be seeing Dr. Bradley vascular specialist in the next 1 week after additional testing for carotid artery atherosclerosis- she is having a CT done next week. She is willing to see a bilingual spanish inbound sales- hasn't had any obvious cardiac symptoms but she is concerned since she does have a history of tobacco use / smoking and has significant artery disease in carotid arteries. Ms. Blanco has past history of diabetes. Since our last visit she denies excessive thirst or increased frequency of urination, chest pain or dyspnea , new or unusual visual symptoms, and low sugar/hypoglycemic reactions. Depression- no. Follows a diabetic diet some of the time. She is compliant with medication(s) and is tolerating med(s) without any side effects. She reports checking her glucose on a three times a day schedule with sugars in the fasting 180-200 range. Patient's last HgA1C was Hemoglobin A1C (%) Date Value 11/16/2023 6.4 11/13/2023 6.5 11/13/2021 6.3 04/16/2021 6.3 ) Last Ophthalmology exam was within the past 12 months Ms. Blanco reports history of hyperlipidemia. Current therapy includes atorvastatin (Lipitor) 80 mg. Denies side effects of muscle weakness or achiness. Her most recent lipid panels are reviewed. Cholesterol, Total (mg/dL) Date Value 11/13/2023 121 04/16/2021 193 HDL Cholesterol (mg/dL) Date Value 11/13/2023 77 04/16/2021 58 LDL Cholesterol (mg/dL) Date Value 11/13/2023 24 04/16/2021 91 Triglyceride (mg/dL) Date Value 11/13/2023 99 04/16/2021 222 Ms. Blanco indicates a history of hypertension and states that she is feeling well and denies any symptoms referable to elevated blood pressure. Specifically denies headache, chest pain, palpitations, dyspnea, and peripheral edema. Patient denies any side effects of her medication(s) and is compliant with their regimen. Last 3 Encounter BP Readings: Date: BP: 12/09/2023 130/80 11/19/2023 100/60 11/13/2023 160/70 She watches her diet for sodium, low fat and low cholesterol some of the time. She does not check BP's generally. Tia gets sporadic irregular exercise. PAST MEDICAL HISTORY Diagnosis Date Aortic stenosis, moderate 08/2019 Benign hypertensive heart disease Celiac disease Diabetes mellitus without mention of complication Diabetes mellitus Fatty liver Grave's disease IBS (irritable bowel syndrome) Medical marijuana use has card Ulcerative colitis, unspecified Vitamin D deficiency PAST SURGICAL HISTORY Procedure Laterality Date COLONOSCOPY FLX DX W/COLLJ SPEC WHEN PFRMD 09/09/2013 Colonoscopy ESOPHAGOGASTRODUODENOSCOPY TRANSORAL DIAGNOSTIC 09/09/2013 EGD INFUSE RADIOACTIVE MATERIALS Iodine ablation for Grave's disease LAP UMBILICAL HERNIA REPAIR 02/17/2000 Lap umbilical hernia with a 19cm mesh LAPAROSCOPY SURG CHOLECYSTECTOMY 03/01/2007 Lap Mary with visiport RUQ insertion LIG/TRNSXJ FLP TUBE ABDL/VAG APPR UNI/BI Tubal ligation Social History Tobacco Use Smoking status: Former Packs/day: .5 Types: Cigarettes Quit date: 11/02/2022 Years since quittin.1 Smokeless tobacco: Never Tobacco comments: 20+ years smoking Substance Use Topics Alcohol use: Yes Drug use: No FAMILY HISTORY Problem Relation Age of Onset Cervical Cancer Sister Diabetes Father Psychiatry Mother Hypertension Father Heart Mother Heart Father Alzheimer's Disease Mother Breast Cancer Sister Allergies: ALLERGIES Allergen Reactions Asa [Salicylates] Gluten Unknown Metformin nausea.. can take name brand Prednisone Itching Sulfa (Sulfonamide * Current Meds: atorvastatin (LIPITOR) 80 mg tablet Take 1 tablet by mouth once daily. clopidogrel (PLAVIX) 75 mg tablet Take 1 tablet by mouth once daily. busPIRone (BUSPAR) 5 mg tablet Take 1 tablet by mouth three times a day as needed. spironolactone (ALDACTONE) 25 mg tablet Take 25 mg by mouth once daily. carvedilol (COREG) 6.25 mg tablet Take 6.25 mg by mouth two times a day with meals. semaglutide (OZEMPIC) 1 mg/dose (4 mg/3 mL) pen Inject 1 mg subcutaneously one time a week. flash glucose scanning reader (QuixbySTZyngenia TARA 2 READER) 1 Device as directed. Type 2 diabetes uncontrolled, no insulin ARMOUR THYROID 120 mg tablet Take 1 tablet PO daily in AM glimepiride (AMARYL) 2 mg tablet Take 1 tablet by mouth two times a day with meals. semaglutide (OZEMPIC) 2 mg/dose (8 mg/3 mL) pen injector Inject 2 mg subcutaneously one time a week. blood sugar diagnostic (FREESTYLE LITE STRIPS) test strip Test blood sugar(s) 8 times daily. Dx: E11.65. Insulin: No elderberry fruit 350 mg cap Take 1 capsule by mouth once daily. ondansetron orally disintegrating (ZOFRAN ODT) 4 mg disintegrating tablet Take 1 tablet by mouth every 8 hours as needed for nausea/vomiting. ergocalciferol 50,000 unit capsule (VITAMIN D2, DRISDOL) Take 1 capsule by mouth two times a week. Blood Pressure Monitor (BLOOD PRESSURE KIT) 1 Each as directed. Dx: essential hypertension blood sugar diagnostic (BLOOD GLUCOSE TEST) test strip Test blood sugar(s) 2 times daily. Dx: Type 2 DM - Uncontrolled E11.65 Insulin: No Lancets lancets Test blood sugar(s) 2 times daily. Dx: Type 2 DM - Uncontrolled E11.65 Insulin: No Lancets (FREESTYLE LANCETS) lancets Test blood sugar(s) 2 times daily. Dx: 250.02. Insulin: No Review of Systems: The remainder of the review of systems is negative. PE: 12/09/23 1734 BP: 130/80 Pulse: 80 Resp: 12 Temp: 36.3 C (97.4 F) TempSrc: Left Tympanic Weight: 74.4 kg (164 lb) Gen: A&O, NAD, non-toxic appearing, tearful in office today, well dressed, cooperative HEENT: NT/AC, PERRLA, EOMs intact b/l, nares clear and patent b/l, pharynx without erythema, exudate or lesions. Uvula midline. MMM Neck: supple, No cervical LAD, no thyromegaly, no carotid bruits CV: RRR, normal S1 and S2, 1/6 HSM RUSB soft murmurs, no gallops, no rubs, Pulses 2+ and symmetric in UE and LE b/l Lungs: normal respiratory effort, CTA b/l, no wheezing or rhonchi or rales Abd: soft, overweight, NT, ND, +BS, no hepatosplenomegaly MS: FROM all 4 extremities Neuro: CN II-XII intact b/l, strength 5/5 b/l UE and LE, DTRs 2/4 UE and LE, sensation intact. Skin: warm, dry, intact, No rashes or lesions on exposed skin. Foot exam: wnl ASSESSMENT/PLAN: 1. Uncontrolled type 2 diabetes mellitus with hyperglycemia (HCC) - ICD9: 250.02, ICD10: E11.65 (primary diagnosis) - Uncontrolled - Worsening control - Start empagliflozin (Jardiance) - EMPAGLIFLOZIN 10 MG TABLET - CONSULT TO CARDIOLOGY - HGB A1C - COMP METABOLIC PANEL - CBC - TSH BLD 2. Nonrheumatic aortic valve stenosis - ICD9: 424.1, ICD10: I35.0 Referral to specialist for opinion due to prolonged hx of HPL and HTN and DM2 as well as carotid atherosclerosus - CONSULT TO CARDIOLOGY 3. Hyperlipidemia, mixed - ICD9: 272.2, ICD10: E78.2 Referral to specialist for opinion due to prolonged hx of HPL and HTN and DM2 as well as carotid atherosclerosus - CONSULT TO CARDIOLOGY - LIPID PANEL BASIC 4. Disease of spinal cord (HCC) - ICD9: 336.9, ICD10: G95.9 5. 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 Other ulcerative colitis without complications (HCC) - ICD9: 556.8, ICD10: K51.80 stale 7. 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, without long-term current use of insulin (HCC) - ICD9: 249.80, ICD10: E08.69 Referral to specialist for opinion due to prolonged hx of HPL and HTN and DM2 as well as carotid atherosclerosus 8. Acquired hypothyroidism - ICD9: 244.9, ICD10: E03.9 - Instructed patient on importance of taking on an empty stomach either first thing in the morning or at bedtime. Continue current dosing 9. Essential hypertension, benign - ICD9: 401.1, ICD10: I10 - Improving control - Continue current medications - Recommend home blood pressure monitoring, to bring results to next visit - Encouraged sodium restriction, DASH or Mediterranean diet - Recommend regular aerobic exercise 10. Situational anxiety - ICD9: 300.09, ICD10: F41.8 Continue prn buspirone, she has a lot of health stressors at this time, she denies depression Preet Farrar, DO To ER if develops chest pain, shortness of breath, or severe worsening of symptoms. Discussed risks, benefits, alternatives, and potential side effects of medications. Patient expressed understanding and agreed with the plan. Preet Farrar DO [address] [place] [address] documented in this encounter [facility] 12-08-2023 Miscellaneous Notes Patient has been identified by name and date of : Patient phones for refill(s): Requested Prescriptions Pending Prescriptions Disp Refills atorvastatin (LIPITOR) 80 mg tablet 90 tablet 1 Sig: Take 1 tablet by mouth once daily. clopidogrel (PLAVIX) 75 mg tablet 90 tablet 1 Sig: Take 1 tablet by mouth once daily. Date of last office visit in primary care: 11/19/2023 Date of next office visit in primary care: 12/09/2023 Please advise. Thank you. Kerry Nevarez LPN. documented in this encounter [facility] 11-25-2023 Miscellaneous Notes Phoned patient aware rx was sent to pharmacy. The following approved medication requests have been transmitted electronically. Requested Prescriptions Signed Prescriptions Disp Refills busPIRone (BUSPAR) 5 mg tablet 90 tablet 2 Sig: Take 1 tablet by mouth three times a day as needed. Authorizing Provider: JACQUELINE CANDELARIO APRN.DEREK At office visit 11/19/23 pt & Sunita Candelario discussed [place], pt has decided she would like to try it. Please send Rx to [facility] in [place] & notify pt when it has been sent in. Gretchen Dorantes LPN documented in this encounter [facility] 11-25-2023 Hospital Discharge instructions Patient Education 11/25/2023 03:00:04 Hypertension, Established Established High Blood Pressure High blood pressure (hypertension) is a chronic disease. Often, healthcare providers don t know what causes it. But it can be caused by certain health conditions and medicines. If you have high blood pressure, you may not have any symptoms. If you do have symptoms, they may include headache, dizziness, changes in your vision, chest pain, and shortness of breath. But even without symptoms, high blood pressure that s not treated raises your risk for heart attack, heart failure, and stroke. High blood pressure is a serious health risk and shouldn t be ignored. Blood pressure measurements are given as 2 numbers. Systolic blood pressure is the upper number. This is the pressure when the heart contracts. Diastolic blood pressure is the lower number. This is the pressure when the heart relaxes between beats. You will see your blood pressure readings written together. For example, a person with a systolic pressure of 118 and a diastolic pressure of 78 will have 118/78 written in the medical record. Blood pressure is categorized as normal, elevated, or stage 1 or stage 2 high blood pressure: Normal blood pressure is systolic of less than 120 and diastolic of less than 80 (120/80) Elevated blood pressure is systolic of 120 to 129 and diastolic less than 80 Stage 1 high blood pressure is systolic is 130 to 139 or diastolic between 80 to 89 Stage 2 high blood pressure is when systolic is 140 or higher or the diastolic is 90 or higher Home care If you have high blood pressure, follow these home care guidelines to help lower your blood pressure. If you are taking medicines for high blood pressure, these methods may reduce or end your need for medicines in the future. Start a weight-loss program if you are overweight. Cut back on how much salt you get in your diet. Here s how to do this: oDon t eat foods that have a lot of salt. These include olives, pickles, smoked meats, and salted potato chips. oDon t add salt to your food at the table. oUse only small amounts of salt when cooking. Start an exercise program. Talk with your healthcare provider about the type of exercise program that would be best for you. It doesn't have to be hard. Even brisk walking for 20 minutes 3 times a week is a good form of exercise. Don t take medicines that stimulate the heart. This includes many dwba-gpm-ydoaqdk cold and sinus decongestant pills and sprays, as well as diet pills. Check the warnings about high blood pressure on the label. Before buying any mlgm-hxz-stkdujr medicines or supplements, always ask the pharmacist about the product's potential interaction with your high blood pressure and your high blood pressure medicines. Stimulants such as amphetamine or cocaine could be deadly for someone with high blood pressure. Never take these. Limit how much caffeine you get in your diet. Switch to caffeine-free products. Stop smoking. If you are a long-time smoker, this can be hard. Talk to your healthcare provider about medicines and nicotine replacement options to help you. Also, enroll in a stop-smoking program to make it more likely that you will quit for good. Learn how to handle stress. This is an important part of any program to lower blood pressure. Learn about relaxation methods like meditation, yoga, or biofeedback. If your provider prescribed medicines, take them exactly as directed. Missing doses may cause your blood pressure get out of control. If you miss a dose or doses, check with your healthcare provider or pharmacist about what to do. Consider buying an automatic blood pressure machine to check your blood pressure at home. Ask your provider for a recommendation. You can get one of these at most pharmacies. The [place] [employer] recommends the following guidelines for home blood pressure monitoring: Don't smoke or drink coffee for 30 minutes before taking your blood pressure. Go to the bathroom before the test. Relax for 5 minutes before taking the measurement. Sit with your back supported (don't sit on a couch or soft chair); keep your feet on the floor uncrossed. Place your arm on a solid flat surface (like a table) with the upper part of the arm at heart level. Place the middle of the cuff directly above the bend of the elbow. Check the monitor's instruction manual for an illustration. Take multiple readings. When you measure, take 2 to 3 readings one minute apart and record all of the results. Take your blood pressure at the same time every day, or as your healthcare provider recommends. Record the date, time, and blood pressure reading. Take the record with you to your next medical appointment. If your blood pressure monitor has a built-in memory, simply take the monitor with you to your next appointment. Call your provider if you have several high readings. Don't be frightened by a single high blood pressure reading, but if you get several high readings, check in with your healthcare provider. Note: When blood pressure reaches a systolic (top number) of 180 or higher OR diastolic (bottom number) of 110 or higher, seek emergency medical treatment. Follow-up care You will need to see your healthcare provider regularly. This is to check your blood pressure and to make changes to your medicines. Make a follow-up appointment as directed. Bring the record of your home blood pressure readings to the appointment. When to seek medical advice Call your healthcare provider right away if any of these occur: Blood pressure reaches a systolic (upper number) of 180 or higher OR a diastolic (bottom number) of 110 or higher Chest pain or shortness of breath Severe headache Throbbing or rushing sound in the ears Nosebleed Sudden severe pain in your belly (abdomen) Extreme drowsiness, confusion, or fainting Dizziness or spinning sensation (vertigo) Weakness of an arm or leg or one side of the face You have problems speaking or seeing [id number] [employer]. [address] [place] [address]. All rights reserved. This information is not intended as a substitute for professional medical care. Always follow your healthcare professional's instructions. Follow Up Care 11/24/2023 18:46:50 With:RAY OVERTON Address: [address] [place] [phone] When:2-4 days [facility] 11-25-2023 Emergency department Discharge summary Discharge Instructions Thank you for allowing [facility] to assist you with your healthcare needs. The following is important discharge information regarding your hospital visit. Diagnosis from Today's Visit Chest pain What to Do Next Instructions from Your Care Team No qualifying data available. Post Acute Orders No qualifying data available. You Need to Schedule the Following Appointments Follow Up with RAY OVERTON When Within 2-4 days Where: [address] [place] [id number] [phone] Allergies Glutens metFORMIN predniSONE salicylates sulfa drug Medications Please ask your primary doctor or pharmacist before taking any other medication not listed, including over the counter drugs, herbal medications, vitamins and or supplements as they may interact with your home medications. What How Much When Instructions Last Dose Unchanged atorvastatin (Lipitor 80 mg oral tablet) 1 tab(s) by mouth Every day Unchanged carvedilol (carvedilol 6.25 mg oral tablet) 1 tab(s) by mouth Two (2) times a day Unchanged clopidogrel (Plavix 75 mg oral tablet) 1 tab(s) by mouth Every day Unchanged cyanocobalamin (Vitamin B12 1000 mcg oral tablet) 1 tab(s) by mouth Every day Unchanged elderberry 350 Milligram by mouth Once a day Unchanged ergocalciferol (ergocalciferol 50,000 intl units (1.25 mg) oral capsule) 8 EA, Take 1 capsule by mouth two times a week. Unchanged glimepiride (glimepiride 2 mg oral tablet) 56 EA, Take 1 tablet by mouth twice daily with meals. Unchanged semaglutide (Ozempic) Subcutaneous Unchanged spironolactone (spironolactone 25 mg oral tablet) 28 EA, TAKE 1 TABLET BY MOUTH AT BEDTIME Unchanged thyroid desiccated (Oblong Thyroid 120 mg oral tablet) 32 EA, Take one tablet by mouth every morning daily 6 days per week, then take two tablets 1 day per week. Please take this list to your next doctor s visit. Bring all medications you take, including over the counter medications, herbals and other supplements with you to your doctor s visit. Patients and families are reminded to discard old lists and to update any records with all medication providers or retail pharmacies. Education Materials Established High Blood Pressure High blood pressure (hypertension) is a chronic disease. Often, healthcare providers don t know what causes it. But it can be caused by certain health conditions and medicines. If you have high blood pressure, you may not have any symptoms. If you do have symptoms, they may include headache, dizziness, changes in your vision, chest pain, and shortness of breath. But even without symptoms, high blood pressure that s not treated raises your risk for heart attack, heart failure, and stroke. High blood pressure is a serious health risk and shouldn t be ignored. Blood pressure measurements are given as 2 numbers. Systolic blood pressure is the upper number. This is the pressure when the heart contracts. Diastolic blood pressure is the lower number. This is the pressure when the heart relaxes between beats. You will see your blood pressure readings written together. For example, a person with a systolic pressure of 118 and a diastolic pressure of 78 will have 118/78 written in the medical record. Blood pressure is categorized as normal, elevated, or stage 1 or stage 2 high blood pressure: Normal blood pressure is systolic of less than 120 and diastolic of less than 80 (120/80) Elevated blood pressure is systolic of 120 to 129 and diastolic less than 80 Stage 1 high blood pressure is systolic is 130 to 139 or diastolic between 80 to 89 Stage 2 high blood pressure is when systolic is 140 or higher or the diastolic is 90 or higher Home care If you have high blood pressure, follow these home care guidelines to help lower your blood pressure. If you are taking medicines for high blood pressure, these methods may reduce or end your need for medicines in the future. Start a weight-loss program if you are overweight. Cut back on how much salt you get in your diet. Here s how to do this: oDon t eat foods that have a lot of salt. These include olives, pickles, smoked meats, and salted potato chips. oDon t add salt to your food at the table. oUse only small amounts of salt when cooking. Start an exercise program. Talk with your healthcare provider about the type of exercise program that would be best for you. It doesn't have to be hard. Even brisk walking for 20 minutes 3 times a week is a good form of exercise. Don t take medicines that stimulate the heart. This includes many hujn-myz-cudlhci cold and sinus decongestant pills and sprays, as well as diet pills. Check the warnings about high blood pressure on the label. Before buying any zxwu-pal-zwgojfr medicines or supplements, always ask the pharmacist about the product's potential interaction with your high blood pressure and your high blood pressure medicines. Stimulants such as amphetamine or cocaine could be deadly for someone with high blood pressure. Never take these. Limit how much caffeine you get in your diet. Switch to caffeine-free products. Stop smoking. If you are a long-time smoker, this can be hard. Talk to your healthcare provider about medicines and nicotine replacement options to help you. Also, enroll in a stop-smoking program to make it more likely that you will quit for good. Learn how to handle stress. This is an important part of any program to lower blood pressure. Learn about relaxation methods like meditation, yoga, or biofeedback. If your provider prescribed medicines, take them exactly as directed. Missing doses may cause your blood pressure get out of control. If you miss a dose or doses, check with your healthcare provider or pharmacist about what to do. Consider buying an automatic blood pressure machine to check your blood pressure at home. Ask your provider for a recommendation. You can get one of these at most pharmacies. The [place] [employer] recommends the following guidelines for home blood pressure monitoring: Don't smoke or drink coffee for 30 minutes before taking your blood pressure. Go to the bathroom before the test. Relax for 5 minutes before taking the measurement. Sit with your back supported (don't sit on a couch or soft chair); keep your feet on the floor uncrossed. Place your arm on a solid flat surface (like a table) with the upper part of the arm at heart level. Place the middle of the cuff directly above the bend of the elbow. Check the monitor's instruction manual for an illustration. Take multiple readings. When you measure, take 2 to 3 readings one minute apart and record all of the results. Take your blood pressure at the same time every day, or as your healthcare provider recommends. Record the date, time, and blood pressure reading. Take the record with you to your next medical appointment. If your blood pressure monitor has a built-in memory, simply take the monitor with you to your next appointment. Call your provider if you have several high readings. Don't be frightened by a single high blood pressure reading, but if you get several high readings, check in with your healthcare provider. Note: When blood pressure reaches a systolic (top number) of 180 or higher OR diastolic (bottom number) of 110 or higher, seek emergency medical treatment. Follow-up care You will need to see your healthcare provider regularly. This is to check your blood pressure and to make changes to your medicines. Make a follow-up appointment as directed. Bring the record of your home blood pressure readings to the appointment. When to seek medical advice Call your healthcare provider right away if any of these occur: Blood pressure reaches a systolic (upper number) of 180 or higher OR a diastolic (bottom number) of 110 or higher Chest pain or shortness of breath Severe headache Throbbing or rushing sound in the ears Nosebleed Sudden severe pain in your belly (abdomen) Extreme drowsiness, confusion, or fainting Dizziness or spinning sensation (vertigo) Weakness of an arm or leg or one side of the face You have problems speaking or seeing [id number] [employer]. [address] [place] [address]. All rights reserved. This information is not intended as a substitute for professional medical care. Always follow your healthcare professional's instructions. Additional Information VACCINATE! IT SAVES LIVES! Members of the community who have not yet received the COVID-19 vaccine and would like to receive it can visit one of [facility] vaccine clinics. There are many vaccine clinic locations within the [facility]. For locations and available times, please visit www.gettheshot.coronavirus.[place].gov/. It is important to note that some COVID mobile vaccine clinics are held outdoors and may be canceled in rainy or stormy conditions. To learn more about pediatric vaccinations (ages 5-11), we invite you to visit the [facility] webpage. https://www.[facility].org/pages/2 171-Wtoif-Ssnvnqcqhfj-Frequently-Asked -Questions.html To learn more about the COVID-19 vaccine, we invite you to visit the CDC website for a list of frequently asked questions. https://www.cdc.gov/coronavirus/2019-n cov/vaccines/faq.html [facility] Patient Portal Access Instructions: Stay connected with your healthcare team and access your personal medical information anytime with the [facility] Patient Portal. If you would like a full copy of your medical records please contact the [facility] Medical Records Department Thursday through Thursday between 8a.m. and 4:30p.m. Please follow the directions below to access the portal: 1.Access the email account you provided upon registration to the hospital.2.Look for an invitation email from [facility].3.Open the email and access the invitation link: Accept Invitation to [facility].Fill in the required drake to create your account. Sign into [email or web address] with your username and password that you created in the above steps to stay up to date. You can then view a summary of results, a summary of your visits, and the ability to download your summaries to your computer or send the information securely to a physician. Remember that your healthcare information is confidential, so carefully consider who you will allow to register on the [facility] Patient Portal for access to your information. You can also access the [facility] Patient Portal on the [employer] tex. Simply click on Health Records under Health Data and then click on the [employer] logo. HOW TO SAFELY DISPOSE OF PRESCRIPTION MEDICATIONS Please use one of the following methods to safely dispose of your unused medications. 1.Use a drug disposal kit: the drug disposal pouch allows you to safely discard your old and unused drugs. Ask your nurse to give you one when you are discharged.2.Visit a local take-back location: Many local pharmacies and police departments have programs that collect old and unwanted prescription drugs. Call your local pharmacy or go to http://Trunkbow/5P0Ab4b to find one close to you.3.Make use of household items: Use cat litter or old coffee grounds to dispose medications if other options are not available. Mix your drugs with these household products, seal them in an airtight container and throw it into the garbage. Call [facility]: [phone] to be sure your drugs can be disposed of in this way. Some medicines may require a different approach.4.Never flush your medications down the toilet. IF YOU HAVE BEEN PRESCRIBED AN OPIOIDS FOR PAIN If you have been prescribed an opioid (such as hydrocodone, oxycodone or morphine), it is critical to understand the possible side effects and risks of opioid pain medications. Even when taken as directed, opioids can have several side effects including: Tolerance, meaning you might need to take more of a medication for the same pain relief. Nausea, vomiting and/or constipation. Sleepiness, dizziness, dry mouth, confusion, depression or itching. Physical dependence, meaning you have withdrawal symptoms when a medication is stopped ? this can develop within a few days. KNOW YOUR RESPONSIBILITIES It is important to know exactly how much and how often to take the opioid pain medications you are prescribed. Never take opioids in higher amounts or more often than prescribed. Do not combine opioids with alcohol or other drugs that cause drowsiness, such as benzodiazepines, also known as benzos, including diazepam and alprazolam, muscle relaxants or sleep aids. Never sell or share prescription opioids. This is illegal. Store opioids in a secure place and out of reach of others (including children, family, friends and visitors). The last page(s) of this document has been signed and retained as a CHART COPY Signatures Patient Education Materials Hypertension, Established Medication Leaflets My discharge plan and instructions have been reviewed and explained to me and I,TIA BLANCO understand my current condition and have read and understand these discharge instructions. I have received a written copy of the plan/instructions. If I have questions, I am aware that I should contact my doctor. Patient/Correctional Casework Specialist Signature: _ Date/Time: Relationship to Patient: Witness Name/Signature: Date/Time: [facility] 11-24-2023 Note ORIGINAL EXAMINATION: ONE XRAY VIEW OF THE CHEST 11/24/2023 7:05 pm COMPARISON: None. HISTORY: ORDERING SYSTEM PROVIDED HISTORY: Reason for Exam: chest pain FINDINGS: The cardiomediastinal silhouette appears normal. There is no focal consolidation. There is no pulmonary edema. There is no evidence of pleural effusion. There is no evidence of pneumothorax. No fracture is identified. IMPRESSION: No acute abnormality is identified. Interpreted by: Eyad Mary Preliminary Report By: Eyad Mary Electronically signed By Eyad Mary Dictated Date: 11/24/2023 7:08:20 PM Prelim Date: 11/24/2023 7:08:29 PM Sign Date: 11/24/2023 7:08:29 PM Ordering Provider: [facility] 11-24-2023 Note SINUS OR ECTOPIC ATR IAL RHYTHM ANTEROSEPTAL INFARCT, OLD Electronic Signature: ELOISA LEVIN MD 11/25/2023 02:10:17 [facility] 11-19-2023 Miscellaneous Notes We discussed lab results at appointment today. Thank you, Jacqueline Candelario APRN.TECHNICAL COMMUNICATOR documented in this encounter [facility] 11-19-2023 Note HNO ID: [id number] Author: JACQUELINE CANDELARIO APRN.DEREK Service: ? Author Type: Nurse Practitioner Type: Progress Notes Filed: 11/19/2023 10:26 Note Text: Chief Complaint Patient presents with: Hypertension HPI Tia Blanco is a 68 year old female who presents here today for Above Complaints. Tia is an established patient of Dr. Farrar, and myself. Concerns today... Per visit on 11/13: ASSESSMENT/PLAN: 1. Essential hypertension, benign - ICD9: 401.1, ICD10: I10 (primary diagnosis) - Uncontrolled - Increase losartan to 50 mg daily - Recommend home blood pressure monitoring, to bring results to next visit - Encouraged sodium restriction, DASH or Mediterranean diet - Recommend regular aerobic exercise - Follow up in 2 weeks for hypertension visit - LOSARTAN 50 MG TABLET - COMP METABOLIC PANEL - CBC + DIFF - LIPID PANEL BASIC In office today... HTN-- Pt saw Dr. Overton, her BP doctor she saw after her stroke last year. Appointment yesterday for HTN. Pt was switched back to prior regimen of carvadilol 6.25 mg BID and spirolactone 25 mg at bedtime. Pt was on this regimen prior and it worked well at stabilizing BP. While hospitalized in June she was taken off of all of her HTN medications and never restarted due BP stable at that time. Pt started this new medication regimen today. BP normal in office today. Has follow-up with Dr. Overton in 2 weeks and in February. Also has vascular appointment with December 01. Pt reports dizziness off and on and denies any dizziness today since taking her medications. Last 14 Encounter BP Readings: Date: BP: 11/19/2023 100/60 11/13/2023 160/70 10/29/2023 150/62 09/14/2023 124/80 07/15/2023 126/74 06/26/2023 122/60 06/19/2023 118/68 04/30/2023 132/82 03/18/2023 130/80 12/10/2022 138/80 11/05/2022 110/62 09/10/2022 120/80 02/19/2022 160/80 01/31/2022 156/84 Pt very tearful during interview. Feels anxious about possibility of stroke reoccurring at any time in the future. Refuses to go on daily SSRI/SNRI. No other concerns or complaints. Past medical history, appointments, medications, allergies reviewed. Previous Medical History PAST MEDICAL HISTORY Diagnosis Date Aortic stenosis, moderate 08/2019 Benign hypertensive heart disease Celiac disease Diabetes mellitus without mention of complication Diabetes mellitus Fatty liver Grave's disease IBS (irritable bowel syndrome) Medical marijuana use has card Ulcerative colitis, unspecified Vitamin D deficiency Previous Surgical History PAST SURGICAL HISTORY Procedure Laterality Date COLONOSCOPY FLX DX W/COLLJ SPEC WHEN PFRMD 09/09/2013 Colonoscopy ESOPHAGOGASTRODUODENOSCOPY TRANSORAL DIAGNOSTIC 09/09/2013 EGD INFUSE RADIOACTIVE MATERIALS Iodine ablation for Grave's disease LAP UMBILICAL HERNIA REPAIR 02/17/2000 Lap umbilical hernia with a 19cm mesh LAPAROSCOPY SURG CHOLECYSTECTOMY 03/01/2007 Lap Mary with visiport RUQ insertion LIG/TRNSXJ FLP TUBE ABDL/VAG APPR UNI/BI Tubal ligation Family History FAMILY HISTORY Problem Relation Age of Onset Cervical Cancer Sister Diabetes Father Psychiatry Mother Hypertension Father Heart Mother Heart Father Alzheimer's Disease Mother Breast Cancer Sister Patient Allergies ALLERGIES Allergen Reactions Asa [Salicylates] Gluten Unknown Metformin nausea.. can take name brand Prednisone Itching Sulfa (Sulfonamide * Current Medications Current Outpatient Medications on File Prior to Visit Medication Sig losartan (COZAAR) 50 mg tablet Take 1 tablet by mouth once daily. semaglutide (OZEMPIC) 1 mg/dose (4 mg/3 mL) pen Inject 1 mg subcutaneously one time a week. flash glucose scanning reader ([employer] TARA 2 READER) 1 Device as directed. Type 2 diabetes uncontrolled, no insulin ARMOUR THYROID 120 mg tablet Take 1 tablet PO daily in AM glimepiride (AMARYL) 2 mg tablet Take 1 tablet by mouth two times a day with meals. semaglutide (OZEMPIC) 2 mg/dose (8 mg/3 mL) pen injector Inject 2 mg subcutaneously one time a week. atorvastatin (LIPITOR) 80 mg tablet Take 1 tablet by mouth once daily. clopidogrel (PLAVIX) 75 mg tablet Take 1 tablet by mouth once daily. blood sugar diagnostic (FREESTYLE LITE STRIPS) test strip Test blood sugar(s) 8 times daily. Dx: E11.65. Insulin: No elderberry fruit 350 mg cap Take 1 capsule by mouth once daily. ondansetron orally disintegrating (ZOFRAN ODT) 4 mg disintegrating tablet Take 1 tablet by mouth every 8 hours as needed for nausea/vomiting. ergocalciferol 50,000 unit capsule (VITAMIN D2, DRISDOL) Take 1 capsule by mouth two times a week. Blood Pressure Monitor (BLOOD PRESSURE KIT) 1 Each as directed. Dx: essential hypertension blood sugar diagnostic (BLOOD GLUCOSE TEST) test strip Test blood sugar(s) 2 times daily. Dx: Type 2 DM - Uncontrolled E11.65 Insulin: No Lancets lancets Test blood sugar(s) 2 time (more content not included)... [facility] 11-19-2023 History of Present illness Narrative Chief Complaint Patient presents with: Hypertension HPI Tia Blanco is a 68 year old female who presents here today for Above Complaints. Tia is an established patient of Dr. Farrar, and myself. Concerns today... Per visit on 11/13: ASSESSMENT/PLAN: 1. Essential hypertension, benign - ICD9: 401.1, ICD10: I10 (primary diagnosis) - Uncontrolled - Increase losartan to 50 mg daily - Recommend home blood pressure monitoring, to bring results to next visit - Encouraged sodium restriction, DASH or Mediterranean diet - Recommend regular aerobic exercise - Follow up in 2 weeks for hypertension visit - LOSARTAN 50 MG TABLET - COMP METABOLIC PANEL - CBC + DIFF - LIPID PANEL BASIC In office today... HTN-- Pt saw Dr. Overton, her BP doctor she saw after her stroke last year. Appointment yesterday for HTN. Pt was switched back to prior regimen of carvadilol 6.25 mg BID and spirolactone 25 mg at bedtime. Pt was on this regimen prior and it worked well at stabilizing BP. While hospitalized in June she was taken off of all of her HTN medications and never restarted due BP stable at that time. Pt started this new medication regimen today. BP normal in office today. Has follow-up with Dr. Overton in 2 weeks and in February. Also has vascular appointment with December 01. Pt reports dizziness off and on and denies any dizziness today since taking her medications. Last 14 Encounter BP Readings: Date: BP: 11/19/2023 100/60 11/13/2023 160/70 10/29/2023 150/62 09/14/2023 124/80 07/15/2023 126/74 06/26/2023 122/60 06/19/2023 118/68 04/30/2023 132/82 03/18/2023 130/80 12/10/2022 138/80 11/05/2022 110/62 09/10/2022 120/80 02/19/2022 160/80 01/31/2022 156/84 Pt very tearful during interview. Feels anxious about possibility of stroke reoccurring at any time in the future. Refuses to go on daily SSRI/SNRI. No other concerns or complaints. Past medical history, appointments, medications, allergies reviewed. Previous Medical History PAST MEDICAL HISTORY Diagnosis Date Aortic stenosis, moderate 08/2019 Benign hypertensive heart disease Celiac disease Diabetes mellitus without mention of complication Diabetes mellitus Fatty liver Grave's disease IBS (irritable bowel syndrome) Medical marijuana use has card Ulcerative colitis, unspecified Vitamin D deficiency Previous Surgical History PAST SURGICAL HISTORY Procedure Laterality Date COLONOSCOPY FLX DX W/COLLJ SPEC WHEN PFRMD 09/09/2013 Colonoscopy ESOPHAGOGASTRODUODENOSCOPY TRANSORAL DIAGNOSTIC 09/09/2013 EGD INFUSE RADIOACTIVE MATERIALS Iodine ablation for Grave's disease LAP UMBILICAL HERNIA REPAIR 02/17/2000 Lap umbilical hernia with a 19cm mesh LAPAROSCOPY SURG CHOLECYSTECTOMY 03/01/2007 Lap Mary with visiport RUQ insertion LIG/TRNSXJ FLP TUBE ABDL/VAG APPR UNI/BI Tubal ligation Family History FAMILY HISTORY Problem Relation Age of Onset Cervical Cancer Sister Diabetes Father Psychiatry Mother Hypertension Father Heart Mother Heart Father Alzheimer's Disease Mother Breast Cancer Sister Patient Allergies ALLERGIES Allergen Reactions Asa [Salicylates] Gluten Unknown Metformin nausea.. can take name brand Prednisone Itching Sulfa (Sulfonamide * Current Medications Current Outpatient Medications on File Prior to Visit Medication Sig losartan (COZAAR) 50 mg tablet Take 1 tablet by mouth once daily. semaglutide (OZEMPIC) 1 mg/dose (4 mg/3 mL) pen Inject 1 mg subcutaneously one time a week. flash glucose scanning reader (FREESTYLE TARA 2 READER) 1 Device as directed. Type 2 diabetes uncontrolled, no insulin ARMOUR THYROID 120 mg tablet Take 1 tablet PO daily in AM glimepiride (AMARYL) 2 mg tablet Take 1 tablet by mouth two times a day with meals. semaglutide (OZEMPIC) 2 mg/dose (8 mg/3 mL) pen injector Inject 2 mg subcutaneously one time a week. atorvastatin (LIPITOR) 80 mg tablet Take 1 tablet by mouth once daily. clopidogrel (PLAVIX) 75 mg tablet Take 1 tablet by mouth once daily. blood sugar diagnostic (FREESTYLE LITE STRIPS) test strip Test blood sugar(s) 8 times daily. Dx: E11.65. Insulin: No elderberry fruit 350 mg cap Take 1 capsule by mouth once daily. ondansetron orally disintegrating (ZOFRAN ODT) 4 mg disintegrating tablet Take 1 tablet by mouth every 8 hours as needed for nausea/vomiting. ergocalciferol 50,000 unit capsule (VITAMIN D2, DRISDOL) Take 1 capsule by mouth two times a week. Blood Pressure Monitor (BLOOD PRESSURE KIT) 1 Each as directed. Dx: essential hypertension blood sugar diagnostic (BLOOD GLUCOSE TEST) test strip Test blood sugar(s) 2 times daily. Dx: Type 2 DM - Uncontrolled E11.65 Insulin: No Lancets lancets Test blood sugar(s) 2 times daily. Dx: Type 2 DM - Uncontrolled E11.65 Insulin: No Lancets (FREESTYLE LANCETS) lancets Test blood sugar(s) 2 times daily. Dx: 250.02. Insulin: No No current facility-administered medications on file prior to visit. Social History Social History Tobacco Use Smoking status: Former Packs/day: .5 Types: Cigarettes Quit date: 11/02/2022 Years since quittin.0 Smokeless tobacco: Never Tobacco comments: 20+ years smoking Substance Use Topics Alcohol use: Yes Drug use: No REVIEW OF SYSTEMS: as above Reviewed relevant PMHx, PSHx, Social Hx, current medications and allergies. Review of Symptoms REVIEW OF SYSTEMS See HPI. EXAM: BP 100/60 (BP Site: Right Arm, BP Position: Sitting, BP Cuff Size: Regular Adult) Pulse 64 Resp 12 Wt 76.2 kg (168 lb) BMI 32.81 kg/m General Appearance: Well appearing, alert, in no acute distress, well-hydrated, well nourished.. Skin: Skin color, texture, turgor normal, no suspicious rashes or lesions. Head: Normocephalic, no masses, lesions, tenderness or abnormalities. Lungs: Lungs clear to auscultation. No wheezing, rhonchi, rales.. Heart: RRR without murmur, gallop, or rubs. No ectopy. Health Maintenance List Mammogram Screening due on 11/16/2014 Colorectal Cancer Screening due on 09/09/2023 Depression Assessment due on 09/28/2023 Diabetic Foot Exam due on 12/11/2023 Influenza Vaccine(1) due on 03/27/2024 RSV Vaccine(1 - 1-dose 60+ series) due on 09/14/2024 DTaP,Tdap,Td Vaccine(1 - Tdap) due on 11/13/2024 Shingrix Vaccine(1 of 2) due on 11/13/2024 Covid-19 Vaccine(1) due on 11/13/2024 Pneumococcal Vaccine: 65+(1 of 2 - PCV) due on 11/13/2024 BP Controlled (<130/80) due on 12/11/2023 Dilated Retinal Exam due on 02/17/2024 HbA1C due on 05/16/2024 Urine Albumin:Creatinine Ratio due on 11/13/2024 LDL Cholesterol due on 11/13/2024 Annual PCP Team Chronic Disease Visit due on 11/13/2024 Bone Density Screening Completed Hepatitis C Screening Completed Pap Testing Discontinued Advance Directive Discussion Discontinued ASSESSMENT/PLAN: 1. Essential hypertension, benign - ICD9: 401.1, ICD10: I10 (primary diagnosis) - Improving control - Continue current medications/ new regimen prescribed yesterday from Dr Overton. - Recommend home blood pressure monitoring, to bring results to next visit - Encouraged sodium restriction, DASH or Mediterranean diet - Recommend regular aerobic exercise - Continue with follow-up with Dr. Overton in 2 weeks. 2. Situational anxiety - ICD9: 300.09, ICD10: F41.8 Discussed trial of prn buspar regimen. Pt reports she will look into it and let me know her thoughts. Refused daily SSRI/SNRI regimen. Discussed occupying time with hobby. RTO in 2 months as scheduled, sooner if needed. Prescription instructions reviewed with patient as applicable. Potential red flag symptoms discussed with the patient. Reviewed appropriate action plan to take if red flag symptoms occur. Patient agreeable to treatment plan. Jacqueline Corbin APRN.CNP [id number] [place] [address] documented in this encounter [facility] 11-18-2023 Miscellaneous Notes Pt informed, verbalized understanding Sofia Harrison Please call patient and let her know that lab work results look good! hgA1c remains stable. Continue on current regimen. Thyroid labs are all normal, continue on current regimen. No concerns at all. Thank you, Jacqueline Candelario APRN.CNP documented in this encounter [facility] 11-13-2023 Miscellaneous Notes This was addressed during appointment today. Closing encounter. Thank you, Jacqueline Candelario APRN.CNP Patient calls and is concerned because her blood pressures continue to be elevated. Patent reports that on 10/30 blood pressure was 132/66. Patient reports that since the blood pressure has been more elevated. 02/08 AM 156/78 02/09 AM 145/74 02/10 AM 132/71 02/11 AM 135/73 02/12 AM 150/81 02/13 AM 136/72 02/14 AM 163/77 PM 137/72 02/15 AM 169/89 Patient takes blood pressure 1 hour after taking losartan. Patient is concerned about her blood pressure. Patient has been previously on Coreg and Spirolactone. Patient concerned due to her stroke history and smoking history. Patient scheduled with Jacqueline Tomorrow morning to discuss blood pressure. Lisa Aparicio RN documented in this encounter [facility] 11-13-2023 Note HNO ID: [id number] Author: JACQUELINE CANDELARIO APRN.TECHNICAL COMMUNICATOR Service: ? Author Type: Nurse Practitioner Type: Progress Notes Filed: 11/13/2023 10:50 Note Text: Tia Farrar, Reason for blood pressure check: Last bp elevated Current Outpatient Medications Medication Sig losartan (COZAAR) 25 mg tablet Take 1 tablet by mouth once daily. flash glucose scanning reader (FREESTYLE TARA 2 READER) 1 Device as directed. Type 2 diabetes uncontrolled, no insulin ARMOUR THYROID 120 mg tablet Take 1 tablet PO daily in AM glimepiride (AMARYL) 2 mg tablet Take 1 tablet by mouth two times a day with meals. atorvastatin (LIPITOR) 80 mg tablet Take 1 tablet by mouth once daily. clopidogrel (PLAVIX) 75 mg tablet Take 1 tablet by mouth once daily. blood sugar diagnostic (FREESTYLE LITE STRIPS) test strip Test blood sugar(s) 8 times daily. Dx: E11.65. Insulin: No elderberry fruit 350 mg cap Take 1 capsule by mouth once daily. ondansetron orally disintegrating (ZOFRAN ODT) 4 mg disintegrating tablet Take 1 tablet by mouth every 8 hours as needed for nausea/vomiting. ergocalciferol 50,000 unit capsule (VITAMIN D2, DRISDOL) Take 1 capsule by mouth two times a week. Blood Pressure Monitor (BLOOD PRESSURE KIT) 1 Each as directed. Dx: essential hypertension blood sugar diagnostic (BLOOD GLUCOSE TEST) test strip Test blood sugar(s) 2 times daily. Dx: Type 2 DM - Uncontrolled E11.65 Insulin: No Lancets lancets Test blood sugar(s) 2 times daily. Dx: Type 2 DM - Uncontrolled E11.65 Insulin: No Lancets (FREESTYLE LANCETS) lancets Test blood sugar(s) 2 times daily. Dx: 250.02. Insulin: No semaglutide (OZEMPIC) 1 mg/dose (4 mg/3 mL) pen Inject 1 mg subcutaneously one time a week. semaglutide (OZEMPIC) 2 mg/dose (8 mg/3 mL) pen injector Inject 2 mg subcutaneously one time a week. No current facility-administered medications for this visit. Medications Reviewed: Yes Took BP medication today: Yes What time was last dose AM Last Encounter BP Readings: Last 3 Encounter BP Readings: Date: BP: 11/13/2023 160/70 10/29/2023 150/62 09/14/2023 124/80 Symptoms: Dizziness Yes Potassium Date Value Ref Range Status 07/30/2023 3.9 3.7 - 5.1 mmol/L Final 06/15/2023 4.5 3.7 - 5.1 mmol/L Final BUN Date Value Ref Range Status 06/15/2023 12 7 - 21 mg/dL Final 05/05/2023 13 7 - 21 mg/dL Final Creatinine Date Value Ref Range Status 06/15/2023 0.58 0.58 - 0.96 mg/dL Final 05/05/2023 0.56 (L) 0.58 - 0.96 mg/dL Final Plan: Schedule the patient within 2 - 4 weeks for a follow up appointment if Systolic > or equal to 140 or Diastolic > or equal to 90. , Advise patient to avoid caffeine intake, smoking and exercise for at least 30 minutes prior to the next blood pressure measurement appointment., Advise patient to take all medications as prescribed the day of the appointment., Patient provided with maufait educational material., and Advise patient to continue to monitor BP at home and record readings. DOORS PREFITTER/MA/OCCA: Written education material provided RN Only Education: Patient educated on the significance of having the BP under good control/diet/exercise. and Patient verbalized understanding of instruction Yes [facility] 11-13-2023 History of Present illness Narrative Tia Farrar, DO Reason for blood pressure check: Last bp elevated Current Outpatient Medications Medication Sig losartan (COZAAR) 25 mg tablet Take 1 tablet by mouth once daily. flash glucose scanning reader (FREESTYLE TARA 2 READER) 1 Device as directed. Type 2 diabetes uncontrolled, no insulin ARMOUR THYROID 120 mg tablet Take 1 tablet PO daily in AM glimepiride (AMARYL) 2 mg tablet Take 1 tablet by mouth two times a day with meals. atorvastatin (LIPITOR) 80 mg tablet Take 1 tablet by mouth once daily. clopidogrel (PLAVIX) 75 mg tablet Take 1 tablet by mouth once daily. blood sugar diagnostic (FREESTYLE LITE STRIPS) test strip Test blood sugar(s) 8 times daily. Dx: E11.65. Insulin: No elderberry fruit 350 mg cap Take 1 capsule by mouth once daily. ondansetron orally disintegrating (ZOFRAN ODT) 4 mg disintegrating tablet Take 1 tablet by mouth every 8 hours as needed for nausea/vomiting. ergocalciferol 50,000 unit capsule (VITAMIN D2, DRISDOL) Take 1 capsule by mouth two times a week. Blood Pressure Monitor (BLOOD PRESSURE KIT) 1 Each as directed. Dx: essential hypertension blood sugar diagnostic (BLOOD GLUCOSE TEST) test strip Test blood sugar(s) 2 times daily. Dx: Type 2 DM - Uncontrolled E11.65 Insulin: No Lancets lancets Test blood sugar(s) 2 times daily. Dx: Type 2 DM - Uncontrolled E11.65 Insulin: No Lancets (FREESTYLE LANCETS) lancets Test blood sugar(s) 2 times daily. Dx: 250.02. Insulin: No semaglutide (OZEMPIC) 1 mg/dose (4 mg/3 mL) pen Inject 1 mg subcutaneously one time a week. semaglutide (OZEMPIC) 2 mg/dose (8 mg/3 mL) pen injector Inject 2 mg subcutaneously one time a week. No current facility-administered medications for this visit. Medications Reviewed: Yes Took BP medication today: Yes What time was last dose AM Last Encounter BP Readings: Last 3 Encounter BP Readings: Date: BP: 11/13/2023 160/70 10/29/2023 150/62 09/14/2023 124/80 Symptoms: Dizziness Yes Potassium Date Value Ref Range Status 07/30/2023 3.9 3.7 - 5.1 mmol/L Final 06/15/2023 4.5 3.7 - 5.1 mmol/L Final BUN Date Value Ref Range Status 06/15/2023 12 7 - 21 mg/dL Final 05/05/2023 13 7 - 21 mg/dL Final Creatinine Date Value Ref Range Status 06/15/2023 0.58 0.58 - 0.96 mg/dL Final 05/05/2023 0.56 (L) 0.58 - 0.96 mg/dL Final Plan: Schedule the patient within 2 - 4 weeks for a follow up appointment if Systolic > or equal to 140 or Diastolic > or equal to 90. , Advise patient to avoid caffeine intake, smoking and exercise for at least 30 minutes prior to the next blood pressure measurement appointment., Advise patient to take all medications as prescribed the day of the appointment., Patient provided with EPIC educational material., and Advise patient to continue to monitor BP at home and record readings. DOORS PREFITTER/MA/OCCA: Written education material provided RN Only Education: Patient educated on the significance of having the BP under good control/diet/exercise. and Patient verbalized understanding of instruction Yes Chief Complaint Patient presents with: Blood Pressure HPI Tia Blanco is a 68 year old female who presents here today for Above Complaints. Tia is an established patient of Dr. Farrar, and myself. Concerns today.. HTN -- Was seen on 10/29 d/t elevated BP readings at home. Per note: ASSESSMENT/PLAN: 1. Essential hypertension, benign - ICD9: 401.1, ICD10: I10 - Worsening control - Start /restart losartan low dose of 25 mg daily. - Recommend home blood pressure monitoring, to bring results to next visit - Encouraged sodium restriction, DASH or Mediterranean diet - Recommend regular aerobic exercise - Reviewed risks of hypertension and principles of treatment - Follow up in 4 weeks for hypertension visit - LOSARTAN 25 MG TABLET RTO in 1 months, sooner if needed. Today in office... She states compliant with current blood pressure medication(s): losartan 25 mg daily. She does check BP at home daily about 1 hour after taking medications. Average home readings: 126-156/70-80s, until the last 2-3 days have been 160s/80s. Pt does report headache daily x 3 days which she can tell is related to elevated BP. She denies chest pain, shortness of breath, palpitations, dizziness, leg edema, or vision changes. Last 14 Encounter BP Readings: Date: BP: 11/13/2023 160/70 10/29/2023 150/62 09/14/2023 124/80 07/15/2023 126/74 06/26/2023 122/60 06/19/2023 118/68 04/30/2023 132/82 03/18/2023 130/80 12/10/2022 138/80 11/05/2022 110/62 09/10/2022 120/80 02/19/2022 160/80 01/31/2022 156/84 01/23/2022 182/96 Pt also concerned d/t blood sugar elevated in the 200s this morning. Pt reports in general she feels like her blood sugars are slowly rising. Past medical history, appointments, medications, allergies reviewed. Previous Medical History PAST MEDICAL HISTORY Diagnosis Date Aortic stenosis, moderate 08/2019 Benign hypertensive heart disease Celiac disease Diabetes mellitus without mention of complication Diabetes mellitus Fatty liver Grave's disease IBS (irritable bowel syndrome) Medical marijuana use has card Ulcerative colitis, unspecified Vitamin D deficiency Previous Surgical History PAST SURGICAL HISTORY Procedure Laterality Date COLONOSCOPY FLX DX W/COLLJ SPEC WHEN PFRMD 09/09/2013 Colonoscopy ESOPHAGOGASTRODUODENOSCOPY TRANSORAL DIAGNOSTIC 09/09/2013 EGD INFUSE RADIOACTIVE MATERIALS Iodine ablation for Grave's disease LAP UMBILICAL HERNIA REPAIR 02/17/2000 Lap umbilical hernia with a 19cm mesh LAPAROSCOPY SURG CHOLECYSTECTOMY 03/01/2007 Lap Mary with visiport RUQ insertion LIG/TRNSXJ FLP TUBE ABDL/VAG APPR UNI/BI Tubal ligation Family History FAMILY HISTORY Problem Relation Age of Onset Cervical Cancer Sister Diabetes Father Psychiatry Mother Hypertension Father Heart Mother Heart Father Alzheimer's Disease Mother Breast Cancer Sister Patient Allergies ALLERGIES Allergen Reactions Asa [Salicylates] Gluten Unknown Metformin nausea.. can take name brand Prednisone Itching Sulfa (Sulfonamide * Current Medications Current Outpatient Medications on File Prior to Visit Medication Sig losartan (COZAAR) 25 mg tablet Take 1 tablet by mouth once daily. semaglutide (OZEMPIC) 1 mg/dose (4 mg/3 mL) pen Inject 1 mg subcutaneously one time a week. flash glucose scanning reader ([employer] TARA 2 READER) 1 Device as directed. Type 2 diabetes uncontrolled, no insulin ARMOUR THYROID 120 mg tablet Take 1 tablet PO daily in AM glimepiride (AMARYL) 2 mg tablet Take 1 tablet by mouth two times a day with meals. semaglutide (OZEMPIC) 2 mg/dose (8 mg/3 mL) pen injector Inject 2 mg subcutaneously one time a week. atorvastatin (LIPITOR) 80 mg tablet Take 1 tablet by mouth once daily. clopidogrel (PLAVIX) 75 mg tablet Take 1 tablet by mouth once daily. blood sugar diagnostic (FREESTYLE LITE STRIPS) test strip Test blood sugar(s) 8 times daily. Dx: E11.65. Insulin: No elderberry fruit 350 mg cap Take 1 capsule by mouth once daily. ondansetron orally disintegrating (ZOFRAN ODT) 4 mg disintegrating tablet Take 1 tablet by mouth every 8 hours as needed for nausea/vomiting. ergocalciferol 50,000 unit capsule (VITAMIN D2, DRISDOL) Take 1 capsule by mouth two times a week. Blood Pressure Monitor (BLOOD PRESSURE KIT) 1 Each as directed. Dx: essential hypertension blood sugar diagnostic (BLOOD GLUCOSE TEST) test strip Test blood sugar(s) 2 times daily. Dx: Type 2 DM - Uncontrolled E11.65 Insulin: No Lancets lancets Test blood sugar(s) 2 times daily. Dx: Type 2 DM - Uncontrolled E11.65 Insulin: No Lancets (FREESTYLE LANCETS) lancets Test blood sugar(s) 2 times daily. Dx: 250.02. Insulin: No No current facility-administered medications on file prior to visit. Social History Social History Tobacco Use Smoking status: Former Packs/day: .5 Types: Cigarettes Quit date: 11/02/2022 Years since quittin.0 Smokeless tobacco: Never Tobacco comments: 20+ years smoking Substance Use Topics Alcohol use: Yes Drug use: No REVIEW OF SYSTEMS: as above Reviewed relevant PMHx, PSHx, Social Hx, current medications and allergies. Review of Symptoms REVIEW OF SYSTEMS See HPI. EXAM: BP 160/70 (BP Site: Left Arm, BP Position: Sitting, BP Cuff Size: Regular Adult) Pulse 64 Resp 16 Wt 76.2 kg (168 lb) BMI 32.81 kg/m General Appearance: Well appearing, alert, in no acute distress, well-hydrated, well nourished.. Skin: Skin color, texture, turgor normal, no suspicious rashes or lesions. Head: Normocephalic, no masses, lesions, tenderness or abnormalities. Lungs: Lungs clear to auscultation. No wheezing, rhonchi, rales.. Heart: RRR without murmur, gallop, or rubs. No ectopy. Health Maintenance List Covid-19 Vaccine(1) Never done Pneumococcal Vaccine: 65+(1 of 2 - PCV) Never done DTaP,Tdap,Td Vaccine(1 - Tdap) Never done Shingrix Vaccine(1 of 2) Never done Mammogram Screening due on 11/16/2014 Colorectal Cancer Screening due on 09/09/2023 Depression Assessment due on 09/28/2023 Urine Albumin:Creatinine Ratio due on 11/05/2023 Diabetic Foot Exam due on 12/11/2023 Influenza Vaccine(1) due on 03/27/2024 RSV Vaccine(1 - 1-dose 60+ series) due on 09/14/2024 BP Controlled (<130/80) due on 12/11/2023 Dilated Retinal Exam due on 02/17/2024 HbA1C due on 03/09/2024 LDL Cholesterol due on 06/15/2024 Annual PCP Team Chronic Disease Visit due on 10/29/2024 Bone Density Screening Completed Hepatitis C Screening Completed Pap Testing Discontinued Advance Directive Discussion Discontinued ASSESSMENT/PLAN: 1. Essential hypertension, benign - ICD9: 401.1, ICD10: I10 (primary diagnosis) - Uncontrolled - Increase losartan to 50 mg daily - Recommend home blood pressure monitoring, to bring results to next visit - Encouraged sodium restriction, DASH or Mediterranean diet - Recommend regular aerobic exercise - Follow up in 2 weeks for hypertension visit - LOSARTAN 50 MG TABLET - COMP METABOLIC PANEL - CBC + DIFF - LIPID PANEL BASIC 2. Acquired hypothyroidism - ICD9: 244.9, ICD10: E03.9 - Instructed patient on importance of taking on an empty stomach either first thing in the morning or at bedtime. - check TSH, free T4, and T3 today - TSH BLD - T3 BLD - T4 FREE/FREE THYROX 3. Controlled type 2 diabetes mellitus without complication, with long-term current use of insulin (HCC) - ICD9: 250.00, V58.67, ICD10: E11.9, Z79.4 Recheck hgA1c -- not quite 3 months but pt very concerned with elevated fasting BG at home. - HGB A1C 4. Uncontrolled type 2 diabetes mellitus with hyperglycemia (HCC) - ICD9: 250.02, ICD10: E11.65 See above. - ALBUMIN/CREAT RATIO RND UR RTO in 2-4 weeks for BP check and review of labs. Prescription instructions reviewed with patient as applicable. Potential red flag symptoms discussed with the patient. Reviewed appropriate action plan to take if red flag symptoms occur. Patient agreeable to treatment plan. Jacqueline Corbin APRN.DEREK [address] [place] [address] documented in this encounter [facility] 11-13-2023 Note HNO ID: [id number] Author: JACQUELINE CANDELARIO APRN.DEREK Service: ? Author Type: Nurse Practitioner Type: Progress Notes Filed: 11/13/2023 10:50 Note Text: Chief Complaint Patient presents with: Blood Pressure HPI Tia Blanco is a 68 year old female who presents here today for Above Complaints. Tia is an established patient of Dr. Farrar, and myself. Concerns today.. HTN -- Was seen on 10/29 d/t elevated BP readings at home. Per note: ASSESSMENT/PLAN: 1. Essential hypertension, benign - ICD9: 401.1, ICD10: I10 - Worsening control - Start /restart losartan low dose of 25 mg daily. - Recommend home blood pressure monitoring, to bring results to next visit - Encouraged sodium restriction, DASH or Mediterranean diet - Recommend regular aerobic exercise - Reviewed risks of hypertension and principles of treatment - Follow up in 4 weeks for hypertension visit - LOSARTAN 25 MG TABLET RTO in 1 months, sooner if needed. Today in office... She states compliant with current blood pressure medication(s): losartan 25 mg daily. She does check BP at home daily about 1 hour after taking medications. Average home readings: 126-156/70-80s, until the last 2-3 days have been 160s/80s. Pt does report headache daily x 3 days which she can tell is related to elevated BP. She denies chest pain, shortness of breath, palpitations, dizziness, leg edema, or vision changes. Last 14 Encounter BP Readings: Date: BP: 11/13/2023 160/70 10/29/2023 150/62 09/14/2023 124/80 07/15/2023 126/74 06/26/2023 122/60 06/19/2023 118/68 04/30/2023 132/82 03/18/2023 130/80 12/10/2022 138/80 11/05/2022 110/62 09/10/2022 120/80 02/19/2022 160/80 01/31/2022 156/84 01/23/2022 182/96 Pt also concerned d/t blood sugar elevated in the 200s this morning. Pt reports in general she feels like her blood sugars are slowly rising. Past medical history, appointments, medications, allergies reviewed. Previous Medical History PAST MEDICAL HISTORY Diagnosis Date Aortic stenosis, moderate 08/2019 Benign hypertensive heart disease Celiac disease Diabetes mellitus without mention of complication Diabetes mellitus Fatty liver Grave's disease IBS (irritable bowel syndrome) Medical marijuana use has card Ulcerative colitis, unspecified Vitamin D deficiency Previous Surgical History PAST SURGICAL HISTORY Procedure Laterality Date COLONOSCOPY FLX DX W/COLLJ SPEC WHEN PFRMD 09/09/2013 Colonoscopy ESOPHAGOGASTRODUODENOSCOPY TRANSORAL DIAGNOSTIC 09/09/2013 EGD INFUSE RADIOACTIVE MATERIALS Iodine ablation for Grave's disease LAP UMBILICAL HERNIA REPAIR 02/17/2000 Lap umbilical hernia with a 19cm mesh LAPAROSCOPY SURG CHOLECYSTECTOMY 03/01/2007 Lap Mary with visiport RUQ insertion LIG/TRNSXJ FLP TUBE ABDL/VAG APPR UNI/BI Tubal ligation Family History FAMILY HISTORY Problem Relation Age of Onset Cervical Cancer Sister Diabetes Father Psychiatry Mother Hypertension Father Heart Mother Heart Father Alzheimer's Disease Mother Breast Cancer Sister Patient Allergies ALLERGIES Allergen Reactions Asa [Salicylates] Gluten Unknown Metformin nausea.. can take name brand Prednisone Itching Sulfa (Sulfonamide * Current Medications Current Outpatient Medications on File Prior to Visit Medication Sig losartan (COZAAR) 25 mg tablet Take 1 tablet by mouth once daily. semaglutide (OZEMPIC) 1 mg/dose (4 mg/3 mL) pen Inject 1 mg subcutaneously one time a week. flash glucose scanning reader (QuixbySTYLE TARA 2 READER) 1 Device as directed. Type 2 diabetes uncontrolled, no insulin ARMOUR THYROID 120 mg tablet Take 1 tablet PO daily in AM glimepiride (AMARYL) 2 mg tablet Take 1 tablet by mouth two times a day with meals. semaglutide (OZEMPIC) 2 mg/dose (8 mg/3 mL) pen injector Inject 2 mg subcutaneously one time a week. atorvastatin (LIPITOR) 80 mg tablet Take 1 tablet by mouth once daily. clopidogrel (PLAVIX) 75 mg tablet Take 1 tablet by mouth once daily. blood sugar diagnostic (FREESTYLE LITE STRIPS) test strip Test blood sugar(s) 8 times daily. Dx: E11.65. Insulin: No elderberry fruit 350 mg cap Take 1 capsule by mouth once daily. ondansetron orally disintegrating (ZOFRAN ODT) 4 mg disintegrating tablet Take 1 tablet by mouth every 8 hours as needed for nausea/vomiting. ergocalciferol 50,000 unit capsule (VITAMIN D2, DRISDOL) Take 1 capsule by mouth two times a week. Blood Pressure Monitor (BLOOD PRESSURE KIT) 1 Each as directed. Dx: essential hypertension blood sugar diagnostic (BLOOD GLUCOSE TEST) test strip Test blood sugar(s) 2 times daily. Dx: Type 2 DM - Uncontrolled E11.65 Insulin: No Lancets lancets Test blood sugar(s) 2 times daily. Dx: Type 2 DM - Uncontrolled E11.65 Insulin: No Lancets (FREESTYLE LANCETS) lancets Test blood sugar(s) 2 times daily. Dx: 250.02. Insulin: No No current facility-administered medications on zo (more content not included)... [facility] 10-29-2023 Note HNO ID: [id number] Author: JACQUELINE CANDELARIO APRN.TECHNICAL COMMUNICATOR Service: ? Author Type: Nurse Practitioner Type: Progress Notes Filed: 10/29/2023 10:20 Note Text: Chief Complaint Patient presents with: b/p running high last few days HPI Tia Blanco is a 68 year old female who presents here today for Above Complaints. Tia is an established patient of Dr. Farrar, and myself. Per TE from yesterday: Pt states she has hx of high blood pressure. Last week she states she started to feel a little off so she found her blood pressure machine and started checking her pressure. States she did not write them down. Yesterday's readings were 152/80 pulse 71 in the morning and in the evening it was 181/87 in her left arm. She thought that was pretty high so she took it in her right arm and it was 173/72 pulse 77. She did have a headache at the time of these higher readings. Pt is extremely nervous about this because she states she had a mild stroke on Nov 02 last year. She is worried about that happening again. Pt remains on her Plavix and Lipitor. She is wondering if she needs to be on BP meds again. Denies any headache, visual disturbances or dizziness at this time. This morning her BP was 153/76 pulse 74. Pt has also had some dizzy spells off and on. Over the last few days, she said she has had maybe 2 dizzy spells. They last about 30 sec. Pt is also diabetic. She states her blood sugars have been fine. Denies taking her BP or BS at the time of the dizziness or right after. Encouraged to do that if it occurs again tonight. She states she thinks she notices the dizzy spells when she eats foods high is salt. Her worst episode of a dizzy spell was when she was on the toilet so she just sat there a little longer and she was fine. States she walks on the treadmill every morning and has not had any symptoms during that time. Appt scheduled with Jacqueline Candelario tomorrow morning at 0920. Pt to go to ER if BP is greater than 180 systolic or if diastolic greater than 100. Or if she has any symptoms such as severe headache, dizziness that lasts longer than current spells, any visual problems or any chest pain. Pt verbalizes understanding. In office today.... HTN --- Pt restates above complaints from TE. Hx of stroke in 2022 (1 year ago this week). Was on HTN regimen but was taken off of this during hospital admission due to hypotension episodes. Pt has been doing well with diet control and weight management for controlling BP until this past week. Pt does report some increase in stressors. Otherwise, her diet and exercise regimen have been the same. At home readings: 160-180/80-90s over the last few days. She denies chest pain, shortness of breath, palpitations, dizziness, leg edema, headaches, or vision changes currently. Last 14 Encounter BP Readings: Date: BP: 10/29/2023 150/62 09/14/2023 124/80 07/15/2023 126/74 06/26/2023 122/60 06/19/2023 118/68 04/30/2023 132/82 03/18/2023 130/80 12/10/2022 138/80 11/05/2022 110/62 09/10/2022 120/80 02/19/2022 160/80 01/31/2022 156/84 01/23/2022 182/96 10/23/2021 170/80 Past medical history, appointments, medications, allergies reviewed. Previous Medical History PAST MEDICAL HISTORY Diagnosis Date Aortic stenosis, moderate 08/2019 Benign hypertensive heart disease Celiac disease Diabetes mellitus without mention of complication Diabetes mellitus Fatty liver Grave's disease IBS (irritable bowel syndrome) Medical marijuana use has card Ulcerative colitis, unspecified Vitamin D deficiency Previous Surgical History PAST SURGICAL HISTORY Procedure Laterality Date COLONOSCOPY FLX DX W/COLLJ SPEC WHEN PFRMD 09/09/2013 Colonoscopy ESOPHAGOGASTRODUODENOSCOPY TRANSORAL DIAGNOSTIC 09/09/2013 EGD INFUSE RADIOACTIVE MATERIALS Iodine ablation for Grave's disease LAP UMBILICAL HERNIA REPAIR 02/17/2000 Lap umbilical hernia with a 19cm mesh LAPAROSCOPY SURG CHOLECYSTECTOMY 03/01/2007 Lap Mary with visiport RUQ insertion LIG/TRNSXJ FLP TUBE ABDL/VAG APPR UNI/BI Tubal ligation Family History FAMILY HISTORY Problem Relation Age of Onset Cervical Cancer Sister Diabetes Father Psychiatry Mother Hypertension Father Heart Mother Heart Father Alzheimer's Disease Mother Breast Cancer Sister Patient Allergies ALLERGIES Allergen Reactions Asa [Salicylates] Gluten Unknown Metformin nausea.. can take name brand Prednisone Itching Sulfa (Sulfonamide * Current Medications Current Outpatient Medications on File Prior to Visit Medication Sig flash glucose scanning reader (FREESTYLE TARA 2 READER) 1 Device as directed. Type 2 diabetes uncontrolled, no insulin ARMOUR THYROID 120 mg tablet Take 1 tablet PO daily in AM glimepiride (AMARYL) 2 mg tablet Take 1 tablet by mouth two times a day with meals. atorvastatin (LIPITOR) 80 mg tablet Take 1 tablet by mouth once daily. clopidogrel ( (more content not included)... [facility] 10-29-2023 History of Present illness Narrative Chief Complaint Patient presents with: b/p running high last few days HPI Tia Blanco is a 68 year old female who presents here today for Above Complaints. Tia is an established patient of Dr. Farrar, and myself. Per TE from yesterday: Pt states she has hx of high blood pressure. Last week she states she started to feel a little off so she found her blood pressure machine and started checking her pressure. States she did not write them down. Yesterday's readings were 152/80 pulse 71 in the morning and in the evening it was 181/87 in her left arm. She thought that was pretty high so she took it in her right arm and it was 173/72 pulse 77. She did have a headache at the time of these higher readings. Pt is extremely nervous about this because she states she had a mild stroke on Nov 02 last year. She is worried about that happening again. Pt remains on her Plavix and Lipitor. She is wondering if she needs to be on BP meds again. Denies any headache, visual disturbances or dizziness at this time. This morning her BP was 153/76 pulse 74. Pt has also had some dizzy spells off and on. Over the last few days, she said she has had maybe 2 dizzy spells. They last about 30 sec. Pt is also diabetic. She states her blood sugars have been fine. Denies taking her BP or BS at the time of the dizziness or right after. Encouraged to do that if it occurs again tonight. She states she thinks she notices the dizzy spells when she eats foods high is salt. Her worst episode of a dizzy spell was when she was on the toilet so she just sat there a little longer and she was fine. States she walks on the treadmill every morning and has not had any symptoms during that time. Appt scheduled with Jacqueline Candelario tomorrow morning at 0920. Pt to go to ER if BP is greater than 180 systolic or if diastolic greater than 100. Or if she has any symptoms such as severe headache, dizziness that lasts longer than current spells, any visual problems or any chest pain. Pt verbalizes understanding. In office today.... HTN --- Pt restates above complaints from TE. Hx of stroke in 2022 (1 year ago this week). Was on HTN regimen but was taken off of this during hospital admission due to hypotension episodes. Pt has been doing well with diet control and weight management for controlling BP until this past week. Pt does report some increase in stressors. Otherwise, her diet and exercise regimen have been the same. At home readings: 160-180/80-90s over the last few days. She denies chest pain, shortness of breath, palpitations, dizziness, leg edema, headaches, or vision changes currently. Last 14 Encounter BP Readings: Date: BP: 10/29/2023 150/62 09/14/2023 124/80 07/15/2023 126/74 06/26/2023 122/60 06/19/2023 118/68 04/30/2023 132/82 03/18/2023 130/80 12/10/2022 138/80 11/05/2022 110/62 09/10/2022 120/80 02/19/2022 160/80 01/31/2022 156/84 01/23/2022 182/96 10/23/2021 170/80 Past medical history, appointments, medications, allergies reviewed. Previous Medical History PAST MEDICAL HISTORY Diagnosis Date Aortic stenosis, moderate 08/2019 Benign hypertensive heart disease Celiac disease Diabetes mellitus without mention of complication Diabetes mellitus Fatty liver Grave's disease IBS (irritable bowel syndrome) Medical marijuana use has card Ulcerative colitis, unspecified Vitamin D deficiency Previous Surgical History PAST SURGICAL HISTORY Procedure Laterality Date COLONOSCOPY FLX DX W/COLLJ SPEC WHEN PFRMD 09/09/2013 Colonoscopy ESOPHAGOGASTRODUODENOSCOPY TRANSORAL DIAGNOSTIC 09/09/2013 EGD INFUSE RADIOACTIVE MATERIALS Iodine ablation for Grave's disease LAP UMBILICAL HERNIA REPAIR 02/17/2000 Lap umbilical hernia with a 19cm mesh LAPAROSCOPY SURG CHOLECYSTECTOMY 03/01/2007 Lap Mary with visiport RUQ insertion LIG/TRNSXJ FLP TUBE ABDL/VAG APPR UNI/BI Tubal ligation Family History FAMILY HISTORY Problem Relation Age of Onset Cervical Cancer Sister Diabetes Father Psychiatry Mother Hypertension Father Heart Mother Heart Father Alzheimer's Disease Mother Breast Cancer Sister Patient Allergies ALLERGIES Allergen Reactions Asa [Salicylates] Gluten Unknown Metformin nausea.. can take name brand Prednisone Itching Sulfa (Sulfonamide * Current Medications Current Outpatient Medications on File Prior to Visit Medication Sig flash glucose scanning reader (FREESTYLE TARA 2 READER) 1 Device as directed. Type 2 diabetes uncontrolled, no insulin ARMOUR THYROID 120 mg tablet Take 1 tablet PO daily in AM glimepiride (AMARYL) 2 mg tablet Take 1 tablet by mouth two times a day with meals. atorvastatin (LIPITOR) 80 mg tablet Take 1 tablet by mouth once daily. clopidogrel (PLAVIX) 75 mg tablet Take 1 tablet by mouth once daily. blood sugar diagnostic (FREESTYLE LITE STRIPS) test strip Test blood sugar(s) 8 times daily. Dx: E11.65. Insulin: No elderberry fruit 350 mg cap Take 1 capsule by mouth once daily. ondansetron orally disintegrating (ZOFRAN ODT) 4 mg disintegrating tablet Take 1 tablet by mouth every 8 hours as needed for nausea/vomiting. ergocalciferol 50,000 unit capsule (VITAMIN D2, DRISDOL) Take 1 capsule by mouth two times a week. Blood Pressure Monitor (BLOOD PRESSURE KIT) 1 Each as directed. Dx: essential hypertension blood sugar diagnostic (BLOOD GLUCOSE TEST) test strip Test blood sugar(s) 2 times daily. Dx: Type 2 DM - Uncontrolled E11.65 Insulin: No Lancets lancets Test blood sugar(s) 2 times daily. Dx: Type 2 DM - Uncontrolled E11.65 Insulin: No Lancets (FREESTYLE LANCETS) lancets Test blood sugar(s) 2 times daily. Dx: 250.02. Insulin: No semaglutide (OZEMPIC) 1 mg/dose (4 mg/3 mL) pen Inject 1 mg subcutaneously one time a week. semaglutide (OZEMPIC) 2 mg/dose (8 mg/3 mL) pen injector Inject 2 mg subcutaneously one time a week. No current facility-administered medications on file prior to visit. Social History Social History Tobacco Use Smoking status: Former Packs/day: .5 Types: Cigarettes Quit date: 11/02/2022 Years since quittin.9 Smokeless tobacco: Never Tobacco comments: 20+ years smoking Substance Use Topics Alcohol use: Yes Drug use: No REVIEW OF SYSTEMS: as above Reviewed relevant PMHx, PSHx, Social Hx, current medications and allergies. Review of Symptoms REVIEW OF SYSTEMS See HPI. EXAM: BP 150/62 (BP Site: Left Arm, BP Position: Sitting, BP Cuff Size: Regular Adult) Pulse 64 Resp 14 Wt 75.8 kg (167 lb) BMI 32.61 kg/m General Appearance: Well appearing, alert, in no acute distress, well-hydrated, well nourished.. Skin: Skin color, texture, turgor normal, no suspicious rashes or lesions. Head: Normocephalic, no masses, lesions, tenderness or abnormalities. Lungs: Lungs clear to auscultation. No wheezing, rhonchi, rales.. Heart: RRR without murmur, gallop, or rubs. No ectopy. Health Maintenance List Mammogram Screening due on 11/16/2014 Colorectal Cancer Screening due on 09/09/2023 Depression Assessment due on 09/28/2023 Urine Albumin:Creatinine Ratio due on 11/05/2023 DTaP,Tdap,Td Vaccine(1 - Tdap) due on 11/05/2023 Shingrix Vaccine(1 of 2) due on 11/05/2023 Covid-19 Vaccine(1) due on 11/05/2023 Pneumococcal Vaccine: 65+(1 of 2 - PCV) due on 11/05/2023 Influenza Vaccine(1) due on 03/27/2024 RSV Vaccine(1 - 1-dose 60+ series) due on 09/14/2024 Diabetic Foot Exam due on 12/11/2023 BP Controlled (<130/80) due on 12/11/2023 Dilated Retinal Exam due on 02/17/2024 HbA1C due on 03/09/2024 LDL Cholesterol due on 06/15/2024 Annual PCP Team Chronic Disease Visit due on 09/14/2024 Bone Density Screening Completed Hepatitis C Screening Completed Pap Testing Discontinued Advance Directive Discussion Discontinued ASSESSMENT/PLAN: 1. Essential hypertension, benign - ICD9: 401.1, ICD10: I10 - Worsening control - Start /restart losartan low dose of 25 mg daily. - Recommend home blood pressure monitoring, to bring results to next visit - Encouraged sodium restriction, DASH or Mediterranean diet - Recommend regular aerobic exercise - Reviewed risks of hypertension and principles of treatment - Follow up in 4 weeks for hypertension visit - LOSARTAN 25 MG TABLET RTO in 1 months, sooner if needed. Prescription instructions reviewed with patient as applicable. Potential red flag symptoms discussed with the patient. Reviewed appropriate action plan to take if red flag symptoms occur. Patient agreeable to treatment plan. Jacqueline Corbin APRN.DEREK [address] [place] [address] documented in this encounter [facility] 09-14-2023 Note HNO ID: [id number] Author: Leah Rivero APRN.TECHNICAL COMMUNICATOR Service: ? Author Type: Nurse Practitioner Type: Progress Notes Filed: 09/14/2023 12:34 PM Note Text: Chief Complaint Patient presents with: F/U 3 Month HPI Tia Blanco is a 68 year old female who presents here today for Above Complaints. Today: Home blood sugars-checking 4x daily. Did recently get a new blood glucose machine. Forgot to bring blood sugar results along. But have been in the 100's every time she has checked it. Thyroid is off the chart. Doesn't feel good at all. Is putting on weight rather than losing. Need to do something about the thyroid now. Is adding more chicken and some carbs to her diet. Feels the carbs should help her increase her insulin to help her burn more weight. Is now eating 3 small potatoes and gluten free chicken strips. Requesting to have her Oblong thyroid medication adjusted. Quit taking her vitamin B12 level because it was extremely high. Up to 30 minutes on her treadmill 7 days per week. Feels very god with this. Uses medical marijuana-gets this in [place], [place] because too expensive in [place]. Past medical history, appointments, medications, allergies reviewed. Previous Medical History PAST MEDICAL HISTORY Diagnosis Date Aortic stenosis, moderate 08/2019 Benign hypertensive heart disease Celiac disease Diabetes mellitus without mention of complication Diabetes mellitus Fatty liver Grave's disease IBS (irritable bowel syndrome) Medical marijuana use has card Ulcerative colitis, unspecified Vitamin D deficiency Previous Surgical History PAST SURGICAL HISTORY Procedure Laterality Date COLONOSCOPY FLX DX W/COLLJ SPEC WHEN PFRMD 09/09/2013 Colonoscopy ESOPHAGOGASTRODUODENOSCOPY TRANSORAL DIAGNOSTIC 09/09/2013 EGD INFUSE RADIOACTIVE MATERIALS Iodine ablation for Grave's disease LAP UMBILICAL HERNIA REPAIR 02/17/2000 Lap umbilical hernia with a 19cm mesh LAPAROSCOPY SURG CHOLECYSTECTOMY 03/01/2007 Lap Mary with visiport RUQ insertion LIG/TRNSXJ FLP TUBE ABDL/VAG APPR UNI/BI Tubal ligation Family History FAMILY HISTORY Problem Relation Age of Onset Cervical Cancer Sister Diabetes Father Psychiatry Mother Hypertension Father Heart Mother Heart Father Alzheimer's Disease Mother Breast Cancer Sister Patient Allergies ALLERGIES Allergen Reactions Asa [Salicylates] Gluten Unknown Metformin nausea.. can take name brand Prednisone Itching Sulfa (Sulfonamide * Current Medications Current Outpatient Medications on File Prior to Visit Medication Sig semaglutide (OZEMPIC) 1 mg/dose (4 mg/3 mL) pen Inject 1 mg subcutaneously one time a week. flash glucose scanning reader (FREESTYLE TARA 2 READER) 1 Device as directed. Type 2 diabetes uncontrolled, no insulin ARMOUR THYROID 120 mg tablet Take 1 tablet PO daily in AM glimepiride (AMARYL) 2 mg tablet Take 1 tablet by mouth two times a day with meals. semaglutide (OZEMPIC) 2 mg/dose (8 mg/3 mL) pen injector Inject 2 mg subcutaneously one time a week. atorvastatin (LIPITOR) 80 mg tablet Take 1 tablet by mouth once daily. clopidogrel (PLAVIX) 75 mg tablet Take 1 tablet by mouth once daily. blood sugar diagnostic (FREESTYLE LITE STRIPS) test strip Test blood sugar(s) 8 times daily. Dx: E11.65. Insulin: No elderberry fruit 350 mg cap Take 1 capsule by mouth once daily. ondansetron orally disintegrating (ZOFRAN ODT) 4 mg disintegrating tablet Take 1 tablet by mouth every 8 hours as needed for nausea/vomiting. ergocalciferol 50,000 unit capsule (VITAMIN D2, DRISDOL) Take 1 capsule by mouth two times a week. Blood Pressure Monitor (BLOOD PRESSURE KIT) 1 Each as directed. Dx: essential hypertension blood sugar diagnostic (BLOOD GLUCOSE TEST) test strip Test blood sugar(s) 2 times daily. Dx: Type 2 DM - Uncontrolled E11.65 Insulin: No Lancets lancets Test blood sugar(s) 2 times daily. Dx: Type 2 DM - Uncontrolled E11.65 Insulin: No Lancets (FREESTYLE LANCETS) lancets Test blood sugar(s) 2 times daily. Dx: 250.02. Insulin: No Cyanocobalamin 1,000 mcg TbER 2 tablets daily (Patient not taking: Reported on 09/14/2023) No current facility-administered medications on file prior to visit. Social History Social History Tobacco Use Smoking status: Former Packs/day: .5 Types: Cigarettes Quit date: 11/02/2022 Years since quittin.8 Smokeless tobacco: Never Tobacco comments: 20+ years smoking Substance Use Topics Alcohol use: Yes Drug use: No Review of Symptoms REVIEW OF SYSTEMS See HPI, otherwise negative EXAM: BP 124/80 (BP Site: Left Arm, BP Position: Sitting, BP Cuff Size: Regular Adult) Pulse 81 Resp 16 Wt 76.8 kg (169 lb 6.4 oz) SpO2 97% BMI 33.08 kg/m? General Appearance: Well appearing, alert, in no acute distress, well-hydrated, well nourished.. Lungs: Lungs clear to auscultation. No wheezing, rhonchi, rales.. Heart: RRR wit (more content not included)... [facility] 08-10-2023 Miscellaneous Notes Poke with pt gave information provioded. Pt voices understanding. Recommend holding any blood thinners including aspirin and plavix for 5-7 days before procedure. This also needs to be clarified if okay time length by the dentist/oral surgeon as well Preet Farrar DO Pt is thinking about getting a tooth extracted. Pt is on Plavix and needs to know how long she would need to hold the medication. Please advise pt. Robert Ulloa LPN documented in this encounter [facility] 07-31-2023 Miscellaneous Notes Patient notified of results. Patient verbalizes understanding. Lisa Aparicio RN Please inform patient that her potassium is normal Preet Farrar DO documented in this encounter [facility] 07-29-2023 Miscellaneous Notes Spoke to erick and advised PA on file and approved till 02/2024 with medicaid. Pharmacy had to run drug and call tech team due to issue with kicking back to medicare. [facility] returned to line and got rx to go through at copay $0. Called patient and went over information with her and reminded her PA is approved till 02/2024. Patient said she was in oct to see Wendie ezekiel no PA was done so very upset. Advised PA doesn't need done due to approval till 02/2024 Donna Novak Ma Patient calling to say she needs prior authorization for brand name Oblong Thyroid. She says she cannot take generic form. PRIOR AUTHORIZATION Medication for Prior Authorization: Oblong Thyroid (Patient says she cannot use generic) Other formulary meds available : NO Insurance Company: [facility] Dual Complete Insurance Company phone number: Patient insurance ID number: [id number] Emily Osei RN documented in this encounter [facility] 07-29-2023 Note HNO ID: [id number] Author: Shaw Tracy Service: ? Author Type: ? Type: Progress Notes Filed: 07/29/2023 11:36 AM Note Text: POPULATION HEALTH NAVIGATION OUTREACH Action/FYI Patient stated she had mammo done outside [facility]. Patient Identified by Name and : YES, via phone Outreach Outcome/Action Spoke to patient / parent / legal guardian: Patient declined Did you use a PCP flex slot to schedule this appointment? N/A Reason for Outreach Care Gap or Scheduling/Wellness visits Payer: Payor: [facility] MEDICARE / Plan: [facility] DUAL COMPLETE HMO POS SNP / Product Type: Medicare / Care Gap Reviewed:: Breast Cancer screening Reminder: Reminder note to check Health Maintenance for items below Health Maintenance items due: Mammogram Screening due on 11/16/2014 RSV Vaccine(1 - 1-dose 60+ series) Never done Colorectal Cancer Screening due on 09/09/2023 Navigation Signature: Shaw BASSETT July 29, 2023 11:35 AM [facility] 07-29-2023 History of Present illness Narrative POPULATION HEALTH NAVIGATION OUTREACH Action/FYI Patient stated she had mammo done outside [facility]. Patient Identified by Name and : YES, via phone Outreach Outcome/Action Spoke to patient / parent / legal guardian: Patient declined Did you use a PCP flex slot to schedule this appointment? N/A Reason for Outreach Care Gap or Scheduling/Wellness visits Payer: Payor: [facility] MEDICARE / Plan: [facility] DUAL COMPLETE HMO POS SNP / Product Type: Medicare / Care Gap Reviewed:: Breast Cancer screening Reminder: Reminder note to check Health Maintenance for items below Health Maintenance items due: Mammogram Screening due on 11/16/2014 RSV Vaccine(1 - 1-dose 60+ series) Never done Colorectal Cancer Screening due on 09/09/2023 Navigation Signature: Shaw BASSETT July 29, 2023 11:35 AM documented in this encounter [facility] 07-29-2023 Note Patient Outreach (NE TNAV) ---- TIA BLANCO ([id number]) 1955 F Date Time Provider Department 07/29/23 SHAW GAUTHIER (SERJIO) NETNAV During your visit today, we recorded the following information about you: Shaw Tracy 07/29/2023 11:36 AM Signed POPULATION HEALTH NAVIGATION OUTREACH Action/FYI Patient stated she had mammo done outside [facility]. Patient Identified by Name and : YES, via phone Outreach Outcome/Action Spoke to patient / parent / legal guardian: Patient declined Did you use a PCP flex slot to schedule this appointment? N/A Reason for Outreach Care Gap or Scheduling/Wellness visits Payer: Payor: [facility] MEDICARE / Plan: [facility] DUAL COMPLETE HMO POS SNP / Product Type: Medicare / Care Gap Reviewed:: Breast Cancer screening Reminder: Reminder note to check Health Maintenance for items below Health Maintenance items due: Mammogram Screening due on 11/16/2014 RSV Vaccine(1 - 1-dose 60+ series) Never done Colorectal Cancer Screening due on 09/09/2023 Navigation Signature: Shaw Gauthier PSS July 29, 2023 11:35 AM Allergies As of Date: 07/29/2023 Noted Allergy Reaction ASA (SALICYLATES) 01/05/2006 GLUTEN 10/17/2016 16 - Unknown METFORMIN 06/20/2010 Comments: nausea.. can take name brand PREDNISONE 10/02/2012 9 - Itching SULFA (SULFONAMIDE ANTIBIOTICS) 12/29/2005 Date Reviewed: 07/15/2023 Reviewed by: Leah Rivero APRN.TECHNICAL COMMUNICATOR - Fully Assessed Reason for Visit: Population Health Navigation Outreach [3910] Cmt: [facility] care gap Prescriptions as of 07/29/2023 - semaglutide (OZEMPIC) 1 mg/dose (4 mg/3 mL) pen Inject 1 mg subcutaneously one time a week. - flash glucose scanning reader (FREESTYLE TARA 2 READER) 1 Device as directed. Type 2 diabetes uncontrolled, no insulin - ARMOUR THYROID 120 mg tablet Take 1 tablet PO daily in AM - glimepiride (AMARYL) 2 mg tablet Take 1 tablet by mouth two times a day with meals. - semaglutide (OZEMPIC) 2 mg/dose (8 mg/3 mL) pen injector Inject 2 mg subcutaneously one time a week. - atorvastatin (LIPITOR) 80 mg tablet Take 1 tablet by mouth once daily. - clopidogrel (PLAVIX) 75 mg tablet Take 1 tablet by mouth once daily. - Cyanocobalamin 1,000 mcg TbER 2 tablets daily - blood sugar diagnostic (FREESTYLE LITE STRIPS) test strip Test blood sugar(s) 8 times daily. Dx: E11.65. Insulin: No - elderberry fruit 350 mg cap Take 1 capsule by mouth once daily. - ondansetron orally disintegrating (ZOFRAN ODT) 4 mg disintegrating tablet Take 1 tablet by mouth every 8 hours as needed for nausea/vomiting. - ergocalciferol 50,000 unit capsule (VITAMIN D2, DRISDOL) Take 1 capsule by mouth two times a week. - Blood Pressure Monitor (BLOOD PRESSURE KIT) 1 Each as directed. Dx: essential hypertension - blood sugar diagnostic (BLOOD GLUCOSE TEST) test strip Test blood sugar(s) 2 times daily. Dx: Type 2 DM - Uncontrolled E11.65 Insulin: No - Lancets lancets Test blood sugar(s) 2 times daily. Dx: Type 2 DM - Uncontrolled E11.65 Insulin: No - Lancets (FREESTYLE LANCETS) lancets Test blood sugar(s) 2 times daily. Dx: 250.02. Insulin: No Problem List As Of Date 07/29/2023 Noted Resolved Diabetes mellitus type 2, controlled, without c*07/13/2006 12/08/2022 BENIGN HYPERTENSION [I10] 07/13/2006 ADJUSTMENT DISORDER WITH DEPRESSED MOOD [F43.21]07/13/2006 ANXIETY STATE NOS [F41.1] 07/13/2006 Hypothyroidism [E03.9] 07/13/2006 Abdominal pain, right upper quadrant [R10.11] 02/16/2007 12/08/2022 Tobacco Use Disorder [F17.200] 10/29/2009 Celiac disease [K90.0] 11/06/2009 Fatigue [R53.83] 09/07/2017 Medial epicondylitis, left [M77.02] 09/07/2017 Controlled type 2 diabetes mellitus without com*10/12/2018 12/08/2022 Situational anxiety [F41.8] 10/12/2018 Dyslipidemia [E78.5] 10/12/2018 Aortic stenosis, moderate [I35.0] 08/2019 Uncontrolled type 2 diabetes mellitus with hype*05/21/2020 Palpitations [R00.2] 02/19/2022 Uncontrolled hypertension [I10] 02/19/2022 Vitamin B12 deficiency [E53.8] 09/10/2022 Vitamin D deficiency [E55.9] 09/10/2022 History of tobacco abuse [Z87.891] 03/18/2023 Encounter Status:Closed by SHAW TRACY on 07/29/23 [facility] 07-28-2023 Miscellaneous Notes Pt. informed. Karen Mejia LPN If she wants to try to replace the potassium with potassium rich foods, then needs lab redrawn by Thursday. Order placed Please inform Preet Farrar DO Dr. Stapleton from [facility] calling to give message to pt's PCP. Dr. Stapleton states he saw patient yesterday. Potassium level was 3.1 yesterday. He recommended potassium supplementation and patient prefers to increase potassium using dietary measures as well as wants PCP to address low potassium. Dr. Stapleton states he will be faxing over patient's recent labs with potassium level included. Informed Dr. Stapleton that message would be sent to Dr. Farrar immediately. Please advise patient. Thank you. documented in this encounter [facility] 07-24-2023 Miscellaneous Notes Pt returned call and given Jacqueline's information and pt aware that staying on 1 mg is fine and that RX has been sent to [facility]. Keep her appt in Aug and get labwork drawn a few days before. Pt verbalizes understanding. Attempted to contact patient with no answer. VM full. Will need to try again. Sofia Harrison Last HgA1c was at goal in May. OK to stay on 1 mg dosage and repeat A1c in 3 months. Thank you, Jacqueline Candelario APRN.TECHNICAL COMMUNICATOR The following approved medication requests have been transmitted electronically. Requested Prescriptions Signed Prescriptions Disp Refills semaglutide (OZEMPIC) 1 mg/dose (4 mg/3 mL) pen 9 mL 1 Sig: Inject 1 mg subcutaneously one time a week. Authorizing Provider: JACQUELINE CANDELARIO APRN.TECHNICAL COMMUNICATOR Patient calling [facility] pharmacy told her the Ozempic 2 mg is on manufacture back order and not know when it will be available. Patient said they do have the 1 mg still available. Patient is asking if she should stay on the Ozempic 1 mg? And she would need new rx to be sent to [facility] pharmacy. Then when do you want her to do the HGBA1C lab work if she stays on the 1 mg? Pending rx if wanted needs completed. Please advise documented in this encounter [facility] 07-15-2023 History of Present illness Narrative Chief Complaint Patient presents with: Hospital F/U: Virus, pt recently had a fall due to dizziness, reports in scanned docs. HPI Tia Blanco is a 67 year old female who presents here today for Above Complaints. Today: 07/01 was seen at [facility], passed out-doesn't remember this happening but ended up waking up on the floor- and went to the hospital and was told she had a viral illness. Tested negative for COVID, influenza, RSV. Negative head CT. Was taken off Coreg, spironolactone by the ER. HTN specialist said ok to stay off Coreg and spironolactone. Blood sugars running in 160's. Hasn't been on the treadmill for her 30 minutes daily since she has been in the hospital. Plans to restart at a slower speed and less minutes until she is feeling better. Falls asleep but feels like she never gets into a deep sleep. Diet-incorporating more chicken, watching/cutting back on carbs Past medical history, appointments, medications, allergies reviewed. Previous Medical History PAST MEDICAL HISTORY Diagnosis Date Aortic stenosis, moderate 08/2019 Benign hypertensive heart disease Celiac disease Diabetes mellitus without mention of complication Diabetes mellitus Fatty liver Grave's disease IBS (irritable bowel syndrome) Medical marijuana use has card Ulcerative colitis, unspecified Vitamin D deficiency Previous Surgical History PAST SURGICAL HISTORY Procedure Laterality Date COLONOSCOPY FLX DX W/COLLJ SPEC WHEN PFRMD 09/09/2013 Colonoscopy ESOPHAGOGASTRODUODENOSCOPY TRANSORAL DIAGNOSTIC 09/09/2013 EGD INFUSE RADIOACTIVE MATERIALS Iodine ablation for Grave's disease LAP UMBILICAL HERNIA REPAIR 02/17/2000 Lap umbilical hernia with a 19cm mesh LAPAROSCOPY SURG CHOLECYSTECTOMY 03/01/2007 Lap Mary with visiport RUQ insertion LIG/TRNSXJ FLP TUBE ABDL/VAG APPR UNI/BI Tubal ligation Family History FAMILY HISTORY Problem Relation Age of Onset Cervical Cancer Sister Diabetes Father Psychiatry Mother Hypertension Father Heart Mother Heart Father Alzheimer's Disease Mother Breast Cancer Sister Patient Allergies ALLERGIES Allergen Reactions Asa [Salicylates] Gluten Unknown Metformin nausea.. can take name brand Prednisone Itching Sulfa (Sulfonamide * Current Medications Current Outpatient Medications on File Prior to Visit Medication Sig atorvastatin (LIPITOR) 80 mg tablet Take 1 tablet by mouth once daily. clopidogrel (PLAVIX) 75 mg tablet Take 1 tablet by mouth once daily. Cyanocobalamin 1,000 mcg TbER 2 tablets daily semaglutide (OZEMPIC) 1 mg/dose (4 mg/3 mL) pen Inject 1 mg subcutaneously one time a week. ARMOUR THYROID 120 mg tablet Take 1 tablet PO daily in AM blood sugar diagnostic (FREESTYLE LITE STRIPS) test strip Test blood sugar(s) 8 times daily. Dx: E11.65. Insulin: No elderberry fruit 350 mg cap Take 1 capsule by mouth once daily. glimepiride (AMARYL) 2 mg tablet Take 1 tablet by mouth twice daily with meals. (Patient taking differently: Take 2 mg by mouth two times a day with meals. Pt states only takes this if b/s over 200) ondansetron orally disintegrating (ZOFRAN ODT) 4 mg disintegrating tablet Take 1 tablet by mouth every 8 hours as needed for nausea/vomiting. ergocalciferol 50,000 unit capsule (VITAMIN D2, DRISDOL) Take 1 capsule by mouth two times a week. Blood Pressure Monitor (BLOOD PRESSURE KIT) 1 Each as directed. Dx: essential hypertension blood sugar diagnostic (BLOOD GLUCOSE TEST) test strip Test blood sugar(s) 2 times daily. Dx: Type 2 DM - Uncontrolled E11.65 Insulin: No Lancets lancets Test blood sugar(s) 2 times daily. Dx: Type 2 DM - Uncontrolled E11.65 Insulin: No Lancets (FREESTYLE LANCETS) lancets Test blood sugar(s) 2 times daily. Dx: 250.02. Insulin: No carvedilol (COREG) 25 mg tablet Take 12.5 mg by mouth twice daily with meals. (Patient not taking: Reported on 07/15/2023) No current facility-administered medications on file prior to visit. Social History Social History Tobacco Use Smoking status: Former Packs/day: .5 Types: Cigarettes Quit date: 11/02/2022 Years since quittin.6 Smokeless tobacco: Never Tobacco comments: 20+ years smoking Substance Use Topics Alcohol use: Yes Drug use: No Review of Symptoms REVIEW OF SYSTEMS See HPI, otherwise negative EXAM: BP 126/74 (BP Site: Left Arm, BP Position: Sitting, BP Cuff Size: Regular Adult) Pulse 84 Resp 16 Wt 72.8 kg (160 lb 9.6 oz) SpO2 98% BMI 31.37 kg/m General Appearance: Well appearing, alert, in no acute distress, well-hydrated, well nourished.. Lungs: Lungs clear to auscultation. No wheezing, rhonchi, rales.. Heart: RRR without murmur, gallop, or rubs. No ectopy. Psychiatric: pleasant, cooperative. Health Maintenance List Mammogram Screening due on 11/16/2014 Hepatitis B Vaccine(1 of 3 - Risk 3-dose series) Never done RSV Vaccine(1 - 1-dose 60+ series) Never done Colorectal Cancer Screening due on 09/09/2023 Depression Assessment due on 09/27/2023 DTaP,Tdap,Td Vaccine(1 - Tdap) due on 11/05/2023 Shingrix Vaccine(1 of 2) due on 11/05/2023 Covid-19 Vaccine(1) due on 11/05/2023 Pneumococcal Vaccine: 65+(1 - PCV) due on 11/05/2023 Influenza Vaccine(1) due on 03/27/2024 Urine Albumin:Creatinine Ratio due on 11/05/2023 Diabetic Foot Exam due on 12/11/2023 HbA1C due on 12/14/2023 Dilated Retinal Exam due on 02/17/2024 LDL Cholesterol due on 06/15/2024 Annual PCP Team Chronic Disease Visit due on 07/15/2024 BP Controlled (<130/80) due on 07/15/2024 Bone Density Screening Completed Hepatitis C Screening Completed Pap Testing Discontinued Advance Directive Discussion Discontinued Data reviewed Previous records, office notes ASSESSMENT/PLAN: 1. Uncontrolled type 2 diabetes mellitus with hyperglycemia (HCC) - ICD9: 250.02, ICD10: E11.65 (primary diagnosis) - Uncontrolled - Continue current medications - FREESTYLE TARA 2 READER - GLIMEPIRIDE 2 MG TABLET - SEMAGLUTIDE 2 MG/DOSE (8 MG/3 ML) SUBCUTANEOUS PEN INJECTOR 2. Acquired hypothyroidism - ICD9: 244.9, ICD10: E03.9 - Instructed patient on importance of taking on an empty stomach either first thing in the morning or at bedtime. - ARMOUR THYROID 120 MG TABLET 3. Essential hypertension, benign - ICD9: 401.1, ICD10: I10 - Controlled - Continue current medications - Recommend home blood pressure monitoring, to bring results to next visit - Encouraged sodium restriction, DASH or Mediterranean diet - Recommend regular aerobic exercise - SEMAGLUTIDE 2 MG/DOSE (8 MG/3 ML) SUBCUTANEOUS PEN INJECTOR 4. Renal artery stenosis (HCC) - ICD9: 440.1, ICD10: I70.1 - SEMAGLUTIDE 2 MG/DOSE (8 MG/3 ML) SUBCUTANEOUS PEN INJECTOR Leah Rivero APRN.DEREK documented in this encounter [facility] 07-03-2023 Miscellaneous Notes Patient seen at [facility] ER on 07/01/2023 and is currently admitted. Blayne Osborne RN Tried to reach pt, VM full. Adelita Gomez Ma Attempted to contact patient with no answer. Mailbox full. Will need to try again later. Sofia Harrison Noted. Agree with below that she needs evaluated. Thank you, Jacqueline Candelario APRN.TECHNICAL COMMUNICATOR Patient returned call and went over notes below. Patient kept yelling at her sister, she was trying to make bullion for her to drink and patient kept talking to whoever was there with her and not wanting to listen to nurse. Patient said she is weak, confused, dizzy and she did take the zofran. She is no longer vomiting. Patient said she could not come in for appt or go to the ER unless her sister gives her a lot of help. Patient is going to drink her bullion and has smart water with electrolytes in it to drink also. Call placed to patient with no answer. Voicemail left for patient to return call and ask to speak to a triage nurse to receive provider message. Blayne Osborne RN If patient calls back please let her know that we are checking on her symptoms and to offer a follow up if not improving or further triage if necessary. Blayne Osborne, RN Sister (Diamond) calls to update that patient is not feeling any better since seeing Jacqueline on 06/26/2023. Diamond reports that patient is with poor appetite but drinking fluids. Sleeping a lot. Diamond aware that patient tested negative for Covid, Flu, and RSV so asking what else could be causing this. Asked Diamond if I could speak with patient as there is no note specifically saying Diamond can have any medical information but patient was not available and phone is currently turned off. Last OV note, reports to return if no improvement. Patient needs follow up. Diamond requests that we contact patient but unable to reach patient d/t cell phone is turned off. Diamond is going to stop at patient's house and ask her to call office but would prefer that patient not know she contacted us (Diamond is going to tell patient that we couldn't reach her because phone was turned off but we were calling to check to see if she was improving). Diamond reports she will see patient after 3 pm so patient won't call till after then. Blayne Osborne RN documented in this encounter [facility] 06-26-2023 History of Present illness Narrative Chief Complaint Patient presents with: b/s high yesterday and today: This morning b?s was 259, she states been nauseated and lft eye cloudy HPI Tia Blanco is a 67 year old female who presents here today for Above Complaints. Tia is an established patient of Dr. Farrar, and myself. Concerns today... Per TE from yesterday: Patient calling to ask for provider's advise. States this morning her blood sugar was 212. She then took her daily dose of glimepiride 2mg. Patient is not feeling well today and vomited and believes her glimepiride came out as well. Reports her recent blood sugar went up to 285 and she just took another glimepiride 2mg. Also took Zofran due to being very nauseated . Reports she does not feel well. She is drinking bouillon and water. No other sx's at this time. She is calling to ask if there is anything else she should do? Today in office.. Pt reports n/v x 2 days. No vomiting today, reports feeling slightly better today. Thinks she caught the stomach bug. Pt does report 1-2 episodes of diarrhea yesterday. Recent travel last week to [place]. Reports no appetite and feels dehydrated. Concerns about elevated BG the past 2 days. Last HgA1c was 6.7 on 06/15/23 Denies any SOB, CP, palpitations, or dizziness. Pt denies any URI-like symptoms. Denies fever/chills. No other concerns or complaints. Past medical history, appointments, medications, allergies reviewed. Previous Medical History PAST MEDICAL HISTORY Diagnosis Date Aortic stenosis, moderate 08/2019 Benign hypertensive heart disease Celiac disease Diabetes mellitus without mention of complication Diabetes mellitus Fatty liver Grave's disease IBS (irritable bowel syndrome) Medical marijuana use has card Ulcerative colitis, unspecified Vitamin D deficiency Previous Surgical History PAST SURGICAL HISTORY Procedure Laterality Date COLONOSCOPY FLX DX W/COLLJ SPEC WHEN PFRMD 09/09/2013 Colonoscopy ESOPHAGOGASTRODUODENOSCOPY TRANSORAL DIAGNOSTIC 09/09/2013 EGD INFUSE RADIOACTIVE MATERIALS Iodine ablation for Grave's disease LAP UMBILICAL HERNIA REPAIR 02/17/2000 Lap umbilical hernia with a 19cm mesh LAPAROSCOPY SURG CHOLECYSTECTOMY 03/01/2007 Lap Mary with visiport RUQ insertion LIG/TRNSXJ FLP TUBE ABDL/VAG APPR UNI/BI Tubal ligation Family History FAMILY HISTORY Problem Relation Age of Onset Cervical Cancer Sister Diabetes Father Psychiatry Mother Hypertension Father Heart Mother Heart Father Alzheimer's Disease Mother Breast Cancer Sister Patient Allergies ALLERGIES Allergen Reactions Asa [Salicylates] Gluten Unknown Metformin nausea.. can take name brand Prednisone Itching Sulfa (Sulfonamide * Current Medications Current Outpatient Medications on File Prior to Visit Medication Sig atorvastatin (LIPITOR) 80 mg tablet Take 1 tablet by mouth once daily. clopidogrel (PLAVIX) 75 mg tablet Take 1 tablet by mouth once daily. Cyanocobalamin 1,000 mcg TbER 2 tablets daily semaglutide (OZEMPIC) 1 mg/dose (4 mg/3 mL) pen Inject 1 mg subcutaneously one time a week. ARMOUR THYROID 120 mg tablet Take 1 tablet PO daily in AM blood sugar diagnostic (FREESTYLE LITE STRIPS) test strip Test blood sugar(s) 8 times daily. Dx: E11.65. Insulin: No elderberry fruit 350 mg cap Take 1 capsule by mouth once daily. glimepiride (AMARYL) 2 mg tablet Take 1 tablet by mouth twice daily with meals. (Patient taking differently: Take 2 mg by mouth twice daily with meals. Pt states only takes this if b/s over 200) ondansetron orally disintegrating (ZOFRAN ODT) 4 mg disintegrating tablet Take 1 tablet by mouth every 8 hours as needed for nausea/vomiting. ergocalciferol 50,000 unit capsule (VITAMIN D2, DRISDOL) Take 1 capsule by mouth two times a week. carvedilol (COREG) 25 mg tablet Take 12.5 mg by mouth twice daily with meals. Blood Pressure Monitor (BLOOD PRESSURE KIT) 1 Each as directed. Dx: essential hypertension blood sugar diagnostic (BLOOD GLUCOSE TEST) test strip Test blood sugar(s) 2 times daily. Dx: Type 2 DM - Uncontrolled E11.65 Insulin: No Lancets lancets Test blood sugar(s) 2 times daily. Dx: Type 2 DM - Uncontrolled E11.65 Insulin: No Lancets (FREESTYLE LANCETS) lancets Test blood sugar(s) 2 times daily. Dx: 250.02. Insulin: No No current facility-administered medications on file prior to visit. Social History Social History Tobacco Use Smoking status: Former Packs/day: .5 Types: Cigarettes Quit date: 11/02/2022 Years since quittin.6 Smokeless tobacco: Never Tobacco comments: 20+ years smoking Substance Use Topics Alcohol use: Yes Drug use: No REVIEW OF SYSTEMS: as above Reviewed relevant PMHx, PSHx, Social Hx, current medications and allergies. Review of Symptoms REVIEW OF SYSTEMS See HPI. EXAM: BP 122/60 (BP Site: Left Arm, BP Position: Sitting, BP Cuff Size: Regular Adult) Pulse 100 Resp 14 Wt 71.3 kg (157 lb 3.2 oz) BMI 30.70 kg/m General Appearance: Well appearing, alert, in no acute distress, well-hydrated, well nourished.. Skin: Skin color, texture, turgor normal, no suspicious rashes or lesions. Head: Normocephalic, no masses, lesions, tenderness or abnormalities. Lungs: Lungs clear to auscultation. No wheezing, rhonchi, rales.. Heart: RRR without murmur, gallop, or rubs. No ectopy. Health Maintenance List Mammogram Screening due on 11/16/2014 Hepatitis B Vaccine(1 of 3 - Risk 3-dose series) Never done Colorectal Cancer Screening due on 09/09/2023 Depression Assessment due on 09/27/2023 DTaP,Tdap,Td Vaccine(1 - Tdap) due on 11/05/2023 Shingrix Vaccine(1 of 2) due on 11/05/2023 Covid-19 Vaccine(1) due on 11/05/2023 Pneumococcal Vaccine: 65+(1 - PCV) due on 11/05/2023 Influenza Vaccine(1) due on 03/27/2024 Urine Albumin:Creatinine Ratio due on 11/05/2023 Diabetic Foot Exam due on 12/11/2023 HbA1C due on 12/14/2023 Dilated Retinal Exam due on 02/17/2024 LDL Cholesterol due on 06/15/2024 Annual PCP Team Chronic Disease Visit due on 06/19/2024 BP Controlled (<130/80) due on 06/19/2024 Bone Density Screening Completed Hepatitis C Screening Completed Pap Testing Discontinued Advance Directive Discussion Discontinued ASSESSMENT/PLAN: 1. Nausea and vomiting, unspecified vomiting type - ICD9: 787.01, ICD10: R11.2 (primary diagnosis) Suspect viral. COVID/flu/RSV testing today. Stay hydrated, encouraged body armor lite. [place] diet. Discussed and educated patient on reason for elevated blood glucose with illness. Continue to monitor. - COVID & INFLUENZA A/B & RSV NAAT, ROUTINE - COVID NAAT, UPPER RESPIRATORY, ROUTINE - ROUTINE FLU A/B + RSV 2. Hyperglycemia - ICD9: 790.29, ICD10: R73.9 Discussed and educated patient on reason for elevated blood glucose with illness. Continue to monitor. 3. Controlled type 2 diabetes mellitus without complication, without long-term current use of insulin (HCC) - ICD9: 250.00, ICD10: E11.9 Discussed and educated patient on reason for elevated blood glucose with illness. Continue to monitor. HgA1c is stable and WNL. RTO as needed. Prescription instructions reviewed with patient as applicable. Potential red flag symptoms discussed with the patient. Reviewed appropriate action plan to take if red flag symptoms occur. Patient agreeable to treatment plan. Jacqueline Corbin APRN.DEREK [address] [place] [address] documented in this encounter [facility] 06-19-2023 Instructions Leah Rivero APRN.CNP - 06/19/2023 11:13 AM EDT Cut back your Oblong Thyroid to 1 tablet daily. Recheck your thyroid levels again in 3 months. Check your A1C in 3 months. Continue with your same diabetic medications and diet, exercise. I'll get back with you pm the [employer] powder. documented in this encounter [facility] 06-19-2023 History of Present illness Narrative Chief Complaint Patient presents with: Follow Up: 3 months- DM HPI Tia Blanco is a 67 year old female who presents here today for Above Complaints. Per visit with Jacqueline Candelario CNP on 04/30/2023: Chief Complaint Patient presents with: go over blood sugars and diet HPI Tia Blanco is a 67 year old female who presents here today for Above Complaints. Tia is an established patient of Dr. Farrar, DO and myself. Concerns today... DM-- Patient reports she is feeling well overall in regards to diabetes A1C 7.8% on 03/10 Patient's last HgA1C was 7.3 --- 4 months ago. Current regimen: amaryl 2 mg BID and ozempic 1 mg weekly These were both recently increased at last appointment on 03/18. Pt reports only taking amaryl on an as needed basis when BG readings are above 200 (only taking 1 if so). Tolerating well: Yes Med compliance: Yes Checking sugars: Yes, 4x per day. Range from 120-270 Signs of hypoglycemia?: no Diet: extremely healthy. Little to no carbs per day. No sweets. High protein diet. Concerned about why BG levels are so high when she eats so healthy and exercises routinely. Pt has lost 12 lbs in the last few months since start ozempic. Routine exercise -- walks on treadmill 20 minutes every day. Denies polyuria, polydipsia, numbness, tingling or pain in extremities, new or unusual visual symptoms, unintended weight changes, lightheadedness/dizziness, bowel changes/loose stools, chest pain or dyspnea Past medical history, appointments, medications, allergies reviewed. Previous Medical History PAST MEDICAL HISTORY PAST MEDICAL HISTORY Diagnosis Date Aortic stenosis, moderate 08/2019 Benign hypertensive heart disease Celiac disease Diabetes mellitus without mention of complication Diabetes mellitus Fatty liver Grave's disease IBS (irritable bowel syndrome) Medical marijuana use has card Ulcerative colitis, unspecified Vitamin D deficiency Previous Surgical History PAST SURGICAL HISTORY PAST SURGICAL HISTORY Procedure Laterality Date COLONOSCOPY FLX DX W/COLLJ SPEC WHEN PFRMD 09/09/2013 Colonoscopy ESOPHAGOGASTRODUODENOSCOPY TRANSORAL DIAGNOSTIC 09/09/2013 EGD INFUSE RADIOACTIVE MATERIALS Iodine ablation for Grave's disease LAP UMBILICAL HERNIA REPAIR 02/17/2000 Lap umbilical hernia with a 19cm mesh LAPAROSCOPY SURG CHOLECYSTECTOMY 03/01/2007 Lap Mary with visiport RUQ insertion LIG/TRNSXJ FLP TUBE ABDL/VAG APPR UNI/BI Tubal ligation Family History FAMILY HISTORY FAMILY HISTORY Problem Relation Age of Onset Cervical Cancer Sister Diabetes Father Psychiatry Mother Hypertension Father Heart Mother Heart Father Alzheimer's Disease Mother Breast Cancer Sister Patient Allergies ALLERGIES ALLERGIES Allergen Reactions Asa [Salicylates] Gluten Unknown Metformin nausea.. can take name brand Prednisone Itching Sulfa (Sulfonamide * Current Medications Current Outpatient Medications on File Prior to Visit Medication Sig blood sugar diagnostic (FREESTYLE LITE STRIPS) test strip Test blood sugar(s) 4 times daily. Dx: E11.65. Insulin: No glimepiride (AMARYL) 2 mg tablet Take 1 tablet by mouth twice daily with meals. ondansetron orally disintegrating (ZOFRAN ODT) 4 mg disintegrating tablet Take 1 tablet by mouth every 8 hours as needed for nausea/vomiting. semaglutide (OZEMPIC) 1 mg/dose (4 mg/3 mL) pen Inject 1 mg subcutaneously one time a week. ARMOUR THYROID 120 mg tablet Take 1 tablet PO daily in AM 6x/week. Take 2 tablets 1x/week. ergocalciferol 50,000 unit capsule (VITAMIN D2, DRISDOL) Take 1 capsule by mouth two times a week. Cyanocobalamin 1,000 mcg TbER Take 3 tablets by mouth once daily. atorvastatin (LIPITOR) 80 mg tablet Take 1 tablet by mouth once daily. clopidogrel (PLAVIX) 75 mg tablet Take 1 tablet by mouth once daily. carvedilol (COREG) 25 mg tablet Take 12.5 mg by mouth twice daily with meals. spironolactone (ALDACTONE) 25 mg tablet Take 25 mg by mouth once daily. metoprolol succinate ER (TOPROL XL) 50 mg 24 hr tablet Take 1 tablet by mouth once daily. Blood Pressure Monitor (BLOOD PRESSURE KIT) 1 Each as directed. Dx: essential hypertension blood sugar diagnostic (BLOOD GLUCOSE TEST) test strip Test blood sugar(s) 2 times daily. Dx: Type 2 DM - Uncontrolled E11.65 Insulin: No Lancets lancets Test blood sugar(s) 2 times daily. Dx: Type 2 DM - Uncontrolled E11.65 Insulin: No Lancets (FREESTYLE LANCETS) lancets Test blood sugar(s) 2 times daily. Dx: 250.02. Insulin: No Current Facility-Administered Medications on File Prior to Visit Medication perflutren lipid microspheres 1.3 mL in NaCl (PF) 0.9% 10 mL injection (DEFINITY) sodium chloride 0.9 % (flush) 10 mL (BD POSIFLUSH) Social History SOCIAL HISTORY Social History Tobacco Use Smoking status: Former Packs/day: 0.50 Types: Cigarettes Quit date: 11/02/2022 Years since quittin.4 Smokeless tobacco: Never Tobacco comments: 20+ years smoking Substance Use Topics Alcohol use: Yes Drug use: No REVIEW OF SYSTEMS: as above Reviewed relevant PMHx, PSHx, Social Hx, current medications and allergies. Review of Symptoms REVIEW OF SYSTEMS See HPI. EXAM: BP 132/82 (BP Site: Right Arm, BP Position: Sitting, BP Cuff Size: Large Adult) Pulse 60 Resp 16 Wt 75 kg (165 lb 6.4 oz) BMI 32.30 kg/m General Appearance: Well appearing, alert, in no acute distress, well-hydrated, well nourished.. Skin: Skin color, texture, turgor normal, no suspicious rashes or lesions. Head: Normocephalic, no masses, lesions, tenderness or abnormalities. Lungs: Lungs clear to auscultation. No wheezing, rhonchi, rales.. Heart: RRR without murmur, gallop, or rubs. No ectopy. Health Maintenance List MAMMOGRAM due on 11/16/2014 DEPRESSION ASSESSMENT due on 09/27/2023 DTAP,TDAP,TD(1 - Tdap) due on 11/05/2023 SHINGRIX VACCINE(1 of 2) due on 11/05/2023 COVID-19 VACCINE(1) due on 11/05/2023 PNEUMOCOCCAL: 65+(1 - PCV) due on 11/05/2023 INFLUENZA(1) due on 05/29/2023 COLORECTAL CANCER SCREENING due on 09/09/2023 HBA1C due on 09/09/2023 URINE ALBUMIN:CREATININE RATIO due on 11/05/2023 DIABETIC FOOT EXAM due on 12/11/2023 BP CONTROLLED (<130/80) due on 12/11/2023 DILATED RETINAL EXAM due on 02/17/2024 LDL CHOLESTEROL due on 03/10/2024 ANNUAL PCP TEAM CHRONIC DISEASE VISIT due on 03/18/2024 BONE DENSITY Completed HEPATITIS C SCREENING Completed PAP TESTING Discontinued ADVANCE DIRECTIVE DISCUSSION Discontinued ASSESSMENT/PLAN: 1. Uncontrolled type 2 diabetes mellitus with hyperglycemia (HCC) - ICD9: 250.02, ICD10: E11.65 Continue ozempic 1 mg weekly. Start taking amaryl routinely BID -- with breakfast and dinner. RTO as scheduled in 2 months, lab work including hgA1c just prior. Continue diet and exercise regimen as is. RTO in 2 months, sooner if needed. Prescription instructions reviewed with patient as applicable. Potential red flag symptoms discussed with the patient. Reviewed appropriate action plan to take if red flag symptoms occur. Patient agreeable to treatment plan. Jacqueline Corbin, [place].TECHNICAL COMMUNICATOR Today: A1C from has improved from 7.8 to now 6.7. Diet: AM-2 scrambled eggs, cauliflower & egg wrap, 2 pieces of cheese Lunch-same as breakfast and switches up type of cheese. TWO Good yogurt (has 4 carbs), half of an orange Dinner-salmon, broccoli or cauliflower, brusselsprouts. Trying to reintroduce potatoes. Exercise-every morning before eating Vascular surgeon-only has to see yearly. HTN specialist-only every 6 months. Past medical history, appointments, medications, allergies reviewed. Previous Medical History PAST MEDICAL HISTORY Diagnosis Date Aortic stenosis, moderate 08/2019 Benign hypertensive heart disease Celiac disease Diabetes mellitus without mention of complication Diabetes mellitus Fatty liver Grave's disease IBS (irritable bowel syndrome) Medical marijuana use has card Ulcerative colitis, unspecified Vitamin D deficiency Previous Surgical History PAST SURGICAL HISTORY Procedure Laterality Date COLONOSCOPY FLX DX W/COLLJ SPEC WHEN PFRMD 09/09/2013 Colonoscopy ESOPHAGOGASTRODUODENOSCOPY TRANSORAL DIAGNOSTIC 09/09/2013 EGD INFUSE RADIOACTIVE MATERIALS Iodine ablation for Grave's disease LAP UMBILICAL HERNIA REPAIR 02/17/2000 Lap umbilical hernia with a 19cm mesh LAPAROSCOPY SURG CHOLECYSTECTOMY 03/01/2007 Lap Mary with visiport RUQ insertion LIG/TRNSXJ FLP TUBE ABDL/VAG APPR UNI/BI Tubal ligation Family History FAMILY HISTORY Problem Relation Age of Onset Cervical Cancer Sister Diabetes Father Psychiatry Mother Hypertension Father Heart Mother Heart Father Alzheimer's Disease Mother Breast Cancer Sister Patient Allergies ALLERGIES Allergen Reactions Asa [Salicylates] Gluten Unknown Metformin nausea.. can take name brand Prednisone Itching Sulfa (Sulfonamide * Current Medications Current Outpatient Medications on File Prior to Visit Medication Sig blood sugar diagnostic (FREESTYLE LITE STRIPS) test strip Test blood sugar(s) 8 times daily. Dx: E11.65. Insulin: No elderberry fruit 350 mg cap Take 1 capsule by mouth once daily. glimepiride (AMARYL) 2 mg tablet Take 1 tablet by mouth twice daily with meals. (Patient taking differently: Take 2 mg by mouth twice daily with meals. Pt states only takes this if b/s over 200) ondansetron orally disintegrating (ZOFRAN ODT) 4 mg disintegrating tablet Take 1 tablet by mouth every 8 hours as needed for nausea/vomiting. semaglutide (OZEMPIC) 1 mg/dose (4 mg/3 mL) pen Inject 1 mg subcutaneously one time a week. ARMOUR THYROID 120 mg tablet Take 1 tablet PO daily in AM 6x/week. Take 2 tablets 1x/week. ergocalciferol 50,000 unit capsule (VITAMIN D2, DRISDOL) Take 1 capsule by mouth two times a week. Cyanocobalamin 1,000 mcg TbER Take 3 tablets by mouth once daily. atorvastatin (LIPITOR) 80 mg tablet Take 1 tablet by mouth once daily. clopidogrel (PLAVIX) 75 mg tablet Take 1 tablet by mouth once daily. carvedilol (COREG) 25 mg tablet Take 12.5 mg by mouth twice daily with meals. Blood Pressure Monitor (BLOOD PRESSURE KIT) 1 Each as directed. Dx: essential hypertension blood sugar diagnostic (BLOOD GLUCOSE TEST) test strip Test blood sugar(s) 2 times daily. Dx: Type 2 DM - Uncontrolled E11.65 Insulin: No Lancets lancets Test blood sugar(s) 2 times daily. Dx: Type 2 DM - Uncontrolled E11.65 Insulin: No Lancets (FREESTYLE LANCETS) lancets Test blood sugar(s) 2 times daily. Dx: 250.02. Insulin: No spironolactone (ALDACTONE) 25 mg tablet Take 25 mg by mouth once daily. (Patient not taking: Reported on 06/19/2023) metoprolol succinate ER (TOPROL XL) 50 mg 24 hr tablet Take 1 tablet by mouth once daily. (Patient not taking: Reported on 06/19/2023) No current facility-administered medications on file prior to visit. Social History Social History Tobacco Use Smoking status: Former Packs/day: .5 Types: Cigarettes Quit date: 11/02/2022 Years since quittin.6 Smokeless tobacco: Never Tobacco comments: 20+ years smoking Substance Use Topics Alcohol use: Yes Drug use: No Review of Symptoms REVIEW OF SYSTEMS See HPI, otherwise negative EXAM: BP 118/68 (BP Site: Left Arm, BP Position: Sitting, BP Cuff Size: Regular Adult) Pulse 73 Resp 16 Wt 74.4 kg (164 lb) SpO2 97% BMI 32.03 kg/m General Appearance: Well appearing, alert, in no acute distress, well-hydrated, well nourished.. Lungs: Lungs clear to auscultation. No wheezing, rhonchi, rales.. Heart: RRR without murmur, gallop, or rubs. No ectopy. Health Maintenance List Mammogram Screening due on 11/16/2014 Hepatitis B Vaccine(1 of 3 - Risk 3-dose series) Never done Colorectal Cancer Screening due on 09/09/2023 Depression Assessment due on 09/27/2023 DTaP,Tdap,Td Vaccine(1 - Tdap) due on 11/05/2023 Shingrix Vaccine(1 of 2) due on 11/05/2023 Covid-19 Vaccine(1) due on 11/05/2023 Pneumococcal Vaccine: 65+(1 - PCV) due on 11/05/2023 Influenza Vaccine(1) due on 03/27/2024 Urine Albumin:Creatinine Ratio due on 11/05/2023 Diabetic Foot Exam due on 12/11/2023 BP Controlled (<130/80) due on 12/11/2023 HbA1C due on 12/14/2023 Dilated Retinal Exam due on 02/17/2024 Annual PCP Team Chronic Disease Visit due on 04/30/2024 LDL Cholesterol due on 06/15/2024 Bone Density Screening Completed Hepatitis C Screening Completed Pap Testing Discontinued Advance Directive Discussion Discontinued Data reviewed Previous records, office notes ASSESSMENT/PLAN: 1. Uncontrolled type 2 diabetes mellitus with hyperglycemia (HCC) - ICD9: 250.02, ICD10: E11.65 (primary diagnosis) - Improving control - Continue current medications - Counseled on healthy diet and regular exercise - Discussed need for and benefit of weight loss. BMI 32.03 kg/(m^2) Recheck A1C at that point. May consider Ozempic increase. - HGB A1C 2. Acquired hypothyroidism - ICD9: 244.9, ICD10: E03.9 - Instructed patient on importance of taking on an empty stomach either first thing in the morning or at bedtime. - TSH BLD - T3 BLD - T4 FREE/FREE THYROX - ARMOUR THYROID 120 MG TABLET 3. Vitamin B12 deficiency - ICD9: 266.2, ICD10: E53.8 - VITAMIN B12 BLOOD Leah Rivero APRN.DEREK documented in this encounter [facility] 05-18-2023 Miscellaneous Notes Pt called in and reports she called her insurance and they told her they do not have a number amount on the strips that can be used. Patient reports she is taking ozempic and testing her BS's 8 times a day. Pharmacy tells her is she wants more strips, would need to have pcp send new Rx. Advised patient to find out from her insurance if they cover this. Patient agreeable but still wants pcp to send new Rx. Pended. Last ov: 04-30-23 Next ov: 06-19-23 documented in this encounter [facility] 05-04-2023 Miscellaneous Notes Pt. informed. Can we see if another pharmacy has ozempic in stock first or have pt call around to see. Thank you, Jacqueline Candelario APRN.TECHNICAL COMMUNICATOR Pt called and she has 1 injection left for her Ozempic. Pharmacy instructed pt to call her pcp. Medication is now on back order. Please advise pt. Okay to leave a message. Robert Ulloa LPN documented in this encounter [facility] 04-30-2023 History of Present illness Narrative Chief Complaint Patient presents with: go over blood sugars and diet HPI Tia Blanco is a 67 year old female who presents here today for Above Complaints. Tia is an established patient of Dr. Farrar, and myself. Concerns today... DM-- Patient reports she is feeling well overall in regards to diabetes A1C 7.8% on 03/10 Patient's last HgA1C was 7.3 --- 4 months ago. Current regimen: amaryl 2 mg BID and ozempic 1 mg weekly These were both recently increased at last appointment on 03/18. Pt reports only taking amaryl on an as needed basis when BG readings are above 200 (only taking 1 if so). Tolerating well: Yes Med compliance: Yes Checking sugars: Yes, 4x per day. Range from 120-270 Signs of hypoglycemia?: no Diet: extremely healthy. Little to no carbs per day. No sweets. High protein diet. Concerned about why BG levels are so high when she eats so healthy and exercises routinely. Pt has lost 12 lbs in the last few months since start ozempic. Routine exercise -- walks on treadmill 20 minutes every day. Denies polyuria, polydipsia, numbness, tingling or pain in extremities, new or unusual visual symptoms, unintended weight changes, lightheadedness/dizziness, bowel changes/loose stools, chest pain or dyspnea Past medical history, appointments, medications, allergies reviewed. Previous Medical History PAST MEDICAL HISTORY Diagnosis Date Aortic stenosis, moderate 08/2019 Benign hypertensive heart disease Celiac disease Diabetes mellitus without mention of complication Diabetes mellitus Fatty liver Grave's disease IBS (irritable bowel syndrome) Medical marijuana use has card Ulcerative colitis, unspecified Vitamin D deficiency Previous Surgical History PAST SURGICAL HISTORY Procedure Laterality Date COLONOSCOPY FLX DX W/COLLJ SPEC WHEN PFRMD 09/09/2013 Colonoscopy ESOPHAGOGASTRODUODENOSCOPY TRANSORAL DIAGNOSTIC 09/09/2013 EGD INFUSE RADIOACTIVE MATERIALS Iodine ablation for Grave's disease LAP UMBILICAL HERNIA REPAIR 02/17/2000 Lap umbilical hernia with a 19cm mesh LAPAROSCOPY SURG CHOLECYSTECTOMY 03/01/2007 Lap Mary with visiport RUQ insertion LIG/TRNSXJ FLP TUBE ABDL/VAG APPR UNI/BI Tubal ligation Family History FAMILY HISTORY Problem Relation Age of Onset Cervical Cancer Sister Diabetes Father Psychiatry Mother Hypertension Father Heart Mother Heart Father Alzheimer's Disease Mother Breast Cancer Sister Patient Allergies ALLERGIES Allergen Reactions Asa [Salicylates] Gluten Unknown Metformin nausea.. can take name brand Prednisone Itching Sulfa (Sulfonamide * Current Medications Current Outpatient Medications on File Prior to Visit Medication Sig blood sugar diagnostic (FREESTYLE LITE STRIPS) test strip Test blood sugar(s) 4 times daily. Dx: E11.65. Insulin: No glimepiride (AMARYL) 2 mg tablet Take 1 tablet by mouth twice daily with meals. ondansetron orally disintegrating (ZOFRAN ODT) 4 mg disintegrating tablet Take 1 tablet by mouth every 8 hours as needed for nausea/vomiting. semaglutide (OZEMPIC) 1 mg/dose (4 mg/3 mL) pen Inject 1 mg subcutaneously one time a week. ARMOUR THYROID 120 mg tablet Take 1 tablet PO daily in AM 6x/week. Take 2 tablets 1x/week. ergocalciferol 50,000 unit capsule (VITAMIN D2, DRISDOL) Take 1 capsule by mouth two times a week. Cyanocobalamin 1,000 mcg TbER Take 3 tablets by mouth once daily. atorvastatin (LIPITOR) 80 mg tablet Take 1 tablet by mouth once daily. clopidogrel (PLAVIX) 75 mg tablet Take 1 tablet by mouth once daily. carvedilol (COREG) 25 mg tablet Take 12.5 mg by mouth twice daily with meals. spironolactone (ALDACTONE) 25 mg tablet Take 25 mg by mouth once daily. metoprolol succinate ER (TOPROL XL) 50 mg 24 hr tablet Take 1 tablet by mouth once daily. Blood Pressure Monitor (BLOOD PRESSURE KIT) 1 Each as directed. Dx: essential hypertension blood sugar diagnostic (BLOOD GLUCOSE TEST) test strip Test blood sugar(s) 2 times daily. Dx: Type 2 DM - Uncontrolled E11.65 Insulin: No Lancets lancets Test blood sugar(s) 2 times daily. Dx: Type 2 DM - Uncontrolled E11.65 Insulin: No Lancets (FREESTYLE LANCETS) lancets Test blood sugar(s) 2 times daily. Dx: 250.02. Insulin: No Current Facility-Administered Medications on File Prior to Visit Medication perflutren lipid microspheres 1.3 mL in NaCl (PF) 0.9% 10 mL injection (DEFINITY) sodium chloride 0.9 % (flush) 10 mL (BD POSIFLUSH) Social History Social History Tobacco Use Smoking status: Former Packs/day: 0.50 Types: Cigarettes Quit date: 11/02/2022 Years since quittin.4 Smokeless tobacco: Never Tobacco comments: 20+ years smoking Substance Use Topics Alcohol use: Yes Drug use: No REVIEW OF SYSTEMS: as above Reviewed relevant PMHx, PSHx, Social Hx, current medications and allergies. Review of Symptoms REVIEW OF SYSTEMS See HPI. EXAM: BP 132/82 (BP Site: Right Arm, BP Position: Sitting, BP Cuff Size: Large Adult) Pulse 60 Resp 16 Wt 75 kg (165 lb 6.4 oz) BMI 32.30 kg/m General Appearance: Well appearing, alert, in no acute distress, well-hydrated, well nourished.. Skin: Skin color, texture, turgor normal, no suspicious rashes or lesions. Head: Normocephalic, no masses, lesions, tenderness or abnormalities. Lungs: Lungs clear to auscultation. No wheezing, rhonchi, rales.. Heart: RRR without murmur, gallop, or rubs. No ectopy. Health Maintenance List MAMMOGRAM due on 11/16/2014 DEPRESSION ASSESSMENT due on 09/27/2023 DTAP,TDAP,TD(1 - Tdap) due on 11/05/2023 SHINGRIX VACCINE(1 of 2) due on 11/05/2023 COVID-19 VACCINE(1) due on 11/05/2023 PNEUMOCOCCAL: 65+(1 - PCV) due on 11/05/2023 INFLUENZA(1) due on 05/29/2023 COLORECTAL CANCER SCREENING due on 09/09/2023 HBA1C due on 09/09/2023 URINE ALBUMIN:CREATININE RATIO due on 11/05/2023 DIABETIC FOOT EXAM due on 12/11/2023 BP CONTROLLED (<130/80) due on 12/11/2023 DILATED RETINAL EXAM due on 02/17/2024 LDL CHOLESTEROL due on 03/10/2024 ANNUAL PCP TEAM CHRONIC DISEASE VISIT due on 03/18/2024 BONE DENSITY Completed HEPATITIS C SCREENING Completed PAP TESTING Discontinued ADVANCE DIRECTIVE DISCUSSION Discontinued ASSESSMENT/PLAN: 1. Uncontrolled type 2 diabetes mellitus with hyperglycemia (HCC) - ICD9: 250.02, ICD10: E11.65 Continue ozempic 1 mg weekly. Start taking amaryl routinely BID -- with breakfast and dinner. RTO as scheduled in 2 months, lab work including hgA1c just prior. Continue diet and exercise regimen as is. RTO in 2 months, sooner if needed. Prescription instructions reviewed with patient as applicable. Potential red flag symptoms discussed with the patient. Reviewed appropriate action plan to take if red flag symptoms occur. Patient agreeable to treatment plan. Jacqueline Corbin APRN.DEREK [address] [place] [address] documented in this encounter [facility] 03-25-2023 Miscellaneous Notes Rec'd approval form thyroid pork from 03/28/23 to 03/26/2024. Pharmacy notified. My chart message to pt. Received denial from medicare part D adivising drug is not covered under medicare. No appeal can be done since not covered or offered on drug plan. Patient is aware and submitting PA through medicaid to see if they will pepper picker total cost so she does not have to continue out of pocket. PA to paul submitted through covermymeds Shah: [id number] oDnna Novak Ma Electronic PA submitted Donna Novak Ma Prior Authorization Documentation Prior authorization requested for the following medication: Medication: Oblong thyroid Provider: Farrar Insurance Company Name: [employer] Phone number: [phone] Patient ID number: [id number] [facility] Name: [facility] documented in this encounter [facility] 03-18-2023 History of Present illness Narrative Patient presents with: F/U 3 Month HPI: Tia Blanco is a 67 year old female who presents to the office today for review of health conditions. Concerns today: Overall feels like she is frustrated still with her glucose readings. Hasn't started the higher dose of the ozempic yet- she is taking the 0.5 mg once a week now. She is also taking the Amaryl 1 mg 1-2 times a day with a meal. Glucose readings 160-200s range. Ms. Blanco has past history of diabetes. Since our last visit she denies excessive thirst or increased frequency of urination, chest pain or dyspnea , new or unusual visual symptoms, and low sugar/hypoglycemic reactions. Depression- no. Follows a diabetic diet some of the time. She is compliant with medication(s) and is tolerating med(s) without any side effects. She reports checking her glucose on a once a day schedule with sugars in the fasting 160-200s range. Patient's last HgA1C was Hemoglobin A1C (%) Date Value 03/10/2023 7.8 12/02/2022 7.3 11/13/2021 6.3 04/16/2021 6.3 ) Last Ophthalmology exam was within the past 12 months Ms. Blanco reports history of hyperlipidemia. Current therapy includes atorvastatin (Lipitor) 80 mg. Denies side effects of muscle weakness or achiness. Her most recent lipid panels are reviewed. Cholesterol, Total (mg/dL) Date Value 03/10/2023 107 04/16/2021 193 HDL Cholesterol (mg/dL) Date Value 03/10/2023 61 04/16/2021 58 LDL Cholesterol (mg/dL) Date Value 03/10/2023 28 04/16/2021 91 Triglyceride (mg/dL) Date Value 03/10/2023 91 04/16/2021 222 Ms. Blanco indicates a history of hypertension and states that she is feeling well and denies any symptoms referable to elevated blood pressure. Specifically denies headache, chest pain, dyspnea, and peripheral edema. Patient denies any side effects of her medication(s) and is compliant with their regimen. Last 3 Encounter BP Readings: Date: BP: 03/18/2023 130/80 12/10/2022 138/80 11/05/2022 110/62 She watches her diet for sodium, low fat and low cholesterol some of the time. She does not check BP's generally. Tia gets minimal exercise. PAST MEDICAL HISTORY Diagnosis Date Aortic stenosis, moderate 08/2019 Benign hypertensive heart disease Celiac disease Diabetes mellitus without mention of complication Diabetes mellitus Fatty liver Grave's disease IBS (irritable bowel syndrome) Medical marijuana use has card Ulcerative colitis, unspecified Vitamin D deficiency PAST SURGICAL HISTORY Procedure Laterality Date COLONOSCOPY FLX DX W/COLLJ SPEC WHEN PFRMD 09/09/2013 Colonoscopy ESOPHAGOGASTRODUODENOSCOPY TRANSORAL DIAGNOSTIC 09/09/2013 EGD INFUSE RADIOACTIVE MATERIALS Iodine ablation for Grave's disease LAP UMBILICAL HERNIA REPAIR 02/17/2000 Lap umbilical hernia with a 19cm mesh LAPAROSCOPY SURG CHOLECYSTECTOMY 03/01/2007 Lap Mary with visiport RUQ insertion LIG/TRNSXJ FLP TUBE ABDL/VAG APPR UNI/BI Tubal ligation Social History Tobacco Use Smoking status: Former Packs/day: 0.50 Types: Cigarettes Quit date: 11/02/2022 Years since quittin.3 Smokeless tobacco: Never Tobacco comments: 20+ years smoking Substance Use Topics Alcohol use: Yes Drug use: No FAMILY HISTORY Problem Relation Age of Onset Cervical Cancer Sister Diabetes Father Psychiatry Mother Hypertension Father Heart Mother Heart Father Alzheimer's Disease Mother Breast Cancer Sister Allergies: ALLERGIES Allergen Reactions Asa [Salicylates] Gluten Unknown Metformin nausea.. can take name brand Prednisone Itching Sulfa (Sulfonamide * Current Meds: semaglutide (OZEMPIC) 1 mg/dose (4 mg/3 mL) pen^Inject 1 mg subcutaneously one time a week.^Disp: 4 Each^Rfl: 3 ARMOUR THYROID 120 mg tablet^Take 1 tablet PO daily in AM 6x/week. Take 2 tablets 1x/week.^Disp: 90 tablet^Rfl: 1 ergocalciferol 50,000 unit capsule (VITAMIN D2, DRISDOL)^Take 1 capsule by mouth two times a week.^Disp: 24 capsule^Rfl: 3 blood sugar diagnostic (FREESTYLE LITE STRIPS) test strip^Test blood sugar(s) 2 times daily. Dx: E11.65. Insulin: No^Disp: 100 Strip^Rfl: 11 Cyanocobalamin 1,000 mcg TbER^Take 3 tablets by mouth once daily.^Disp: 90 tablet^Rfl: 3 semaglutide (OZEMPIC) 0.25 mg or 0.5 mg(2 mg/1.5 mL) pen^Inject 0.5 mg subcutaneously one time a week.^Disp: 2 mL^Rfl: 2 atorvastatin (LIPITOR) 80 mg tablet^Take 1 tablet by mouth once daily.^Disp: 90 tablet^Rfl: 1 clopidogrel (PLAVIX) 75 mg tablet^Take 1 tablet by mouth once daily.^Disp: 90 tablet^Rfl: 1 glimepiride (AMARYL) 1 mg tablet^Take 1 tablet by mouth twice daily with meals.^Disp: 60 tablet^Rfl: 1 carvedilol (COREG) 25 mg tablet^Take 12.5 mg by mouth twice daily with meals.^Disp: ^Rfl: spironolactone (ALDACTONE) 25 mg tablet^Take 25 mg by mouth once daily.^Disp: ^Rfl: Blood Pressure Monitor (BLOOD PRESSURE KIT)^1 Each as directed. Dx: essential hypertension^Disp: 1 Kit^Rfl: 0 blood sugar diagnostic (BLOOD GLUCOSE TEST) test strip^Test blood sugar(s) 2 times daily. Dx: Type 2 DM - Uncontrolled E11.65 Insulin: No^Disp: 100 Strip^Rfl: 11 Lancets lancets^Test blood sugar(s) 2 times daily. Dx: Type 2 DM - Uncontrolled E11.65 Insulin: No^Disp: 100 Each^Rfl: 11 Lancets (FREESTYLE LANCETS) lancets^Test blood sugar(s) 2 times daily. Dx: 250.02. Insulin: No^Disp: 100 Each^Rfl: 1 metoprolol succinate ER (TOPROL XL) 50 mg 24 hr tablet^Take 1 tablet by mouth once daily.^Disp: 90 tablet^Rfl: 1 Review of Systems: The remainder of the review of systems is negative. PE: 03/18/23 1027 BP: 130/80 Pulse: 80 Resp: 16 Temp: 36.4 C (97.5 F) TempSrc: Left Tympanic Weight: 76.7 kg (169 lb) Gen: A&O, NAD, non-toxic appearing, Pleasant, cooperative HEENT: NT/AC, PERRLA, EOMs intact b/l, nares clear and patent b/l, pharynx without erythema, exudate or lesions. Uvula midline, MMM. Neck: supple, No cervical LAD, no thyromegaly, no carotid bruits CV: RRR, normal S1 and S2, no murmurs, no gallops, no rubs, Pulses 2+ and symmetric in UE and LE b/l Lungs: normal respiratory effort, CTA b/l, no wheezing or rhonchi or rales Abd: soft, overweight, NT, ND, +BS, no hepatosplenomegaly MS: FROM all 4 extremities Neuro: CN II-XII intact b/l Skin: warm, dry, intact, No rashes or lesions on exposed skin. Foot exam: wnl No edema, normal pulses ASSESSMENT/PLAN: 1. Uncontrolled type 2 diabetes mellitus with hyperglycemia (HCC) - ICD9: 250.02, ICD10: E11.65 (primary diagnosis) - Uncontrolled - Worsening control - Increase glimepiride - Increase semaglutide (Ozempic) - GLIMEPIRIDE 2 MG TABLET - ONDANSETRON 4 MG DISINTEGRATING TABLET - FREESTYLE TARA 2 READER - FREESTYLE TARA 2 SENSOR KIT 2. Acquired hypothyroidism - ICD9: 244.9, ICD10: E03.9 - Instructed patient on importance of taking on an empty stomach either first thing in the morning or at bedtime. Stable - Behavioral intervention, - Eat well program, and - Continue current medications 3. Dyslipidemia - ICD9: 272.4, ICD10: E78.5 - Controlled - Continue current medications - Counseled on healthy diet and regular exercise 4. History of tobacco abuse - ICD9: V15.82, ICD10: Z87.891 5. Essential hypertension, benign - ICD9: 401.1, ICD10: I10 - Controlled - Continue current medications - Recommend home blood pressure monitoring, to bring results to next visit - Encouraged sodium restriction, DASH or Mediterranean diet - Recommend regular aerobic exercise - Discussed need for and benefit of weight loss. BMI 33.01 kg/(m^2) Preet Farrar DO To ER if develops chest pain, shortness of breath, or severe worsening of symptoms. Discussed risks, benefits, alternatives, and potential side effects of medications. Patient expressed understanding and agreed with the plan. Preet Farrar DO [address] [place] [address] documented in this encounter [facility] 03-03-2023 Miscellaneous Notes Last OV: 12/10/22 - Next appt: 03/18/23 Patient has been identified by name and date of : Yes Requested Prescriptions Pending Prescriptions Disp Refills ARMOUR THYROID 120 mg tablet 90 tablet 1 Sig: Take 1 tablet PO daily in AM 6x/week. Take 2 tablets 1x/week. ergocalciferol 50,000 unit capsule (VITAMIN D2, DRISDOL) 24 capsule 3 Sig: Take 1 capsule by mouth two times a week. blood sugar diagnostic (FREESTYLE LITE STRIPS) test strip 100 Strip 11 Sig: Test blood sugar(s) 2 times daily. Dx: E11.65. Insulin: No RX INSTRUCTIONS: Patient aware RX will be sent to pharmacy. No need to notify patient. Kesha Evans LPN documented in this encounter [facility] 02-02-2023 Miscellaneous Notes Patient has been identified by name and date of : Yes, Provider Date Time Patient phones for refill(s): Requested Prescriptions Pending Prescriptions Disp Refills Cyanocobalamin 1,000 mcg TbER 90 tablet 3 Sig: Take 3 tablets by mouth once daily. Date of last office visit with pcp: 12/10/22 Date of last office visit in primary care: Last 2 Encounter Wt Readings: Date: Wt: 12/10/2022 79.8 kg (176 lb) 11/05/2022 79.6 kg (175 lb 6.4 oz) Previous labs/tests for medication: Not applicable Please advise. Thank you. Emily Osei RN documented in this encounter [facility] 12-24-2022 Miscellaneous Notes Pt called and is notified of providers message. Pt voices understanding. Mavis Canada RN The following approved medication requests have been transmitted electronically. Requested Prescriptions Signed Prescriptions Disp Refills glimepiride (AMARYL) 1 mg tablet 60 tablet 1 Sig: Take 1 tablet by mouth twice daily with meals. Authorizing Provider: PREET FARRAR Ordering User: LEAH RIVERO APRN.TECHNICAL COMMUNICATOR Pt called and is notified of providers message and instructions. Pt voices understanding. Pt states she would like to go on a lower dose of the Glimepiride and see if that would help. She would like it called in to [facility] in [place]. Please call and let Pt know when medication has been sent in. Mavis Canada RN She can restart the glimepiride medication and take this with her Ozempic. I am not comfortable dose changing the ozempic for 1 month after starting the medication. Preet Farrar DO Pt called in and reports she changed from taking the oral medications for Diabetes to the Ozempic. She states she just took her second dose this past Thursday. She reports this morning at 710 am it was 192 and at noon it was 225. Last night at 930 pm it was 202. She reports 12/16 was the only time it reached 151. She reports when she was taking the Glimepiride she could at least get it down with exercise. She states she still exercises 30 min a day and it will bring her down, but she is still in the 200s. She knows that the provider said not to get back with her for a month, but she doesn't feel comfortable running in the 200s, and only being in the high 100s a handful of times. Please call and advise. documented in this encounter [facility] 12-15-2022 Miscellaneous Notes Pt called in and wanted to update provider that she will be starting Ozempic today. She states she will call back in 30 days to let you know how it is going and if she needs to have the medication increased. documented in this encounter [facility] 12-10-2022 History of Present illness Narrative Patient presents with: F/U 3 Month HPI: Tia Blanco is a 67 year old female who presents to the office today for review of health conditions. Concerns today: Recently 1 month ago, suffered a left frontal and parietal ischemic stroke. Symptoms quickly resolved without any permanent sequelae. She completed PHYSICAL THERAPY for mild right sided symptoms of arm and leg and symptoms are good. She is now taking Lipitor + Plavix and is walking on her treadmill for 30 minutes each day. She has also been able to finally quit smoking and has been tobacco free for 2+ weeks now. She feels overall well. Doesn't think the amaryl is any longer controlling her glucose. Still following a low sugar low carb intake diet and trying to be active. Willing to try another medication. Ms. Blanco has past history of diabetes. Since our last visit she denies excessive thirst or increased frequency of urination, chest pain or dyspnea , new or unusual visual symptoms, and low sugar/hypoglycemic reactions. Depression- no. Follows a diabetic diet some of the time. She is compliant with medication(s) and is tolerating med(s) without any side effects. She reports checking her glucose on a twice a day schedule with sugars in the <200 range. Patient's last HgA1C was Hemoglobin A1C (%) Date Value 12/02/2022 7.3 09/08/2022 7.1 11/13/2021 6.3 04/16/2021 6.3 ) Last Ophthalmology exam was within the past 3 months Ms. Blanco reports history of hyperlipidemia. Current therapy includes atorvastatin (Lipitor) 80 mg. Denies side effects of muscle weakness or achiness. Her most recent lipid panels are reviewed. Cholesterol, Total (mg/dL) Date Value 12/02/2022 95 04/16/2021 193 HDL Cholesterol (mg/dL) Date Value 12/02/2022 53 04/16/2021 58 LDL Cholesterol (mg/dL) Date Value 12/02/2022 24 04/16/2021 91 Triglyceride (mg/dL) Date Value 12/02/2022 90 04/16/2021 222 Ms. Blanco indicates a history of hypertension and states that she is feeling well and denies any symptoms referable to elevated blood pressure. Specifically denies headache, chest pain, palpitations, dyspnea, and peripheral edema. Patient denies any side effects of her medication(s) and is compliant with their regimen. Last 3 Encounter BP Readings: Date: BP: 12/10/2022 138/80 11/05/2022 110/62 09/10/2022 120/80 She watches her diet for sodium, low fat and low cholesterol some of the time. She does not check BP's generally. Tia gets minimal exercise. PAST MEDICAL HISTORY Diagnosis Date Aortic stenosis, moderate 08/2019 Benign hypertensive heart disease Celiac disease Diabetes mellitus without mention of complication Diabetes mellitus Fatty liver Grave's disease IBS (irritable bowel syndrome) Medical marijuana use has card Ulcerative colitis, unspecified Vitamin D deficiency PAST SURGICAL HISTORY Procedure Laterality Date COLONOSCOPY FLX DX W/COLLJ SPEC WHEN PFRMD 09/09/2013 Colonoscopy ESOPHAGOGASTRODUODENOSCOPY TRANSORAL DIAGNOSTIC 09/09/2013 EGD INFUSE RADIOACTIVE MATERIALS Iodine ablation for Grave's disease LAP UMBILICAL HERNIA REPAIR 02/17/2000 Lap umbilical hernia with a 19cm mesh LAPAROSCOPY SURG CHOLECYSTECTOMY 03/01/2007 Lap Mary with visiport RUQ insertion LIG/TRNSXJ FLP TUBE ABDL/VAG APPR UNI/BI Tubal ligation Social History Tobacco Use Smoking status: Former Packs/day: 0.50 Types: Cigarettes Quit date: 11/02/2022 Years since quittin.1 Smokeless tobacco: Never Tobacco comments: 20+ years smoking Substance Use Topics Alcohol use: Yes Drug use: No FAMILY HISTORY Problem Relation Age of Onset Cervical Cancer Sister Diabetes Father Psychiatry Mother Hypertension Father Heart Mother Heart Father Alzheimer's Disease Mother Breast Cancer Sister Allergies: ALLERGIES Allergen Reactions Asa [Salicylates] Gluten Unknown Metformin nausea.. can take name brand Prednisone Itching Sulfa (Sulfonamide * Current Meds: clopidogrel (PLAVIX) 75 mg tablet^Take 75 mg by mouth once daily.^Disp: ^Rfl: atorvastatin (LIPITOR) 80 mg tablet^Take 1 tablet by mouth once daily.^Disp: ^Rfl: ARMOUR THYROID 120 mg tablet^Take 1 tablet PO daily in AM 6x/week. Take 2 tablets 1x/week.^Disp: 90 tablet^Rfl: 1 Cyanocobalamin 1,000 mcg TbER^Take 3 tablets by mouth once daily.^Disp: 90 tablet^Rfl: 3 carvedilol (COREG) 25 mg tablet^Take 12.5 mg by mouth twice daily with meals.^Disp: ^Rfl: spironolactone (ALDACTONE) 25 mg tablet^Take 25 mg by mouth once daily.^Disp: ^Rfl: glimepiride (AMARYL) 2 mg tablet^Take 1 tablet by mouth twice daily with meals.^Disp: 180 tablet^Rfl: 1 ergocalciferol 50,000 unit capsule (VITAMIN D2, DRISDOL)^Take 1 capsule by mouth two times a week.^Disp: 24 capsule^Rfl: 3 blood sugar diagnostic (FREESTYLE LITE STRIPS) test strip^Test blood sugar(s) 2 times daily. Dx: 250.02. Insulin: No^Disp: 100 Strip^Rfl: 11 Blood Pressure Monitor (BLOOD PRESSURE KIT)^1 Each as directed. Dx: essential hypertension^Disp: 1 Kit^Rfl: 0 blood sugar diagnostic (BLOOD GLUCOSE TEST) test strip^Test blood sugar(s) 2 times daily. Dx: Type 2 DM - Uncontrolled E11.65 Insulin: No^Disp: 100 Strip^Rfl: 11 Lancets lancets^Test blood sugar(s) 2 times daily. Dx: Type 2 DM - Uncontrolled E11.65 Insulin: No^Disp: 100 Each^Rfl: 11 Lancets (FREESTYLE LANCETS) lancets^Test blood sugar(s) 2 times daily. Dx: 250.02. Insulin: No^Disp: 100 Each^Rfl: 1 metoprolol succinate ER (TOPROL XL) 50 mg 24 hr tablet^Take 1 tablet by mouth once daily.^Disp: 90 tablet^Rfl: 1 Review of Systems: The remainder of the review of systems is negative. PE: 12/10/22 0904 BP: 138/80 Pulse: 68 Resp: 16 Temp: 36.1 C (97 F) TempSrc: Left Tympanic Weight: 79.8 kg (176 lb) Gen: A&O, NAD, non-toxic appearing, Pleasant, cooperative HEENT: NT/AC, PERRLA, EOMs intact b/l, nares clear and patent b/l, pharynx without erythema, exudate or lesions, MMM, poor dentition. Uvula midline. EACs without erythema or debris. TMs pearly zamarripa with intact landmarks b/l. Neck: supple, No cervical LAD, no thyromegaly, no carotid bruits CV: RRR, normal S1 and S2, no murmurs, no gallops, no rubs, Pulses 2+ and symmetric in UE and LE b/l Lungs: normal respiratory effort, CTA b/l, no wheezing or rhonchi or rales Abd: soft, NT, ND, +BS, no hepatosplenomegaly MS: FROM all 4 extremities Neuro: CN II-XII intact b/l, strength 5/5 b/l UE and LE, DTRs 2/4 UE and LE, sensation intact. Skin: warm, dry, intact, No rashes or lesions on exposed skin. Foot exam: Monofilament wnl on right and left feet. ASSESSMENT/PLAN: 1. Uncontrolled type 2 diabetes mellitus with hyperglycemia (HCC) - ICD9: 250.02, ICD10: E11.65 (primary diagnosis) - Uncontrolled - Stop glimepiride Start ozempic as d/w her today - OZEMPIC 0.25 MG OR 0.5 MG (2 MG/1.5 ML) SUBCUTANEOUS PEN INJECTOR - HGB A1C - COMP METABOLIC PANEL - LIPID PANEL BASIC - CBC 2. Ischemic stroke without residual deficits (HCC) - ICD9: 434.91, ICD10: I63.9 - continue plavix and lipitor and BLOOD PRESSURE control and need for better diabetes control. F/u with Neurologist and vascular surgeon 3. Dyslipidemia - ICD9: 272.4, ICD10: E78.5 - suboptimal control - Continue current medication. - Encouraged following a low fat, low cholesterol diet. - Discussed the benefits of regular aerobic exercise and weight loss. - LIPID PANEL BASIC 4. Acquired hypothyroidism - ICD9: 244.9, ICD10: E03.9 - Instructed patient on importance of taking on an empty stomach either first thing in the morning or at bedtime. Stable - Behavioral intervention and - Pharmacological intervention - TSH BLD 5. Vitamin D deficiency - ICD9: 268.9, ICD10: E55.9 - VITAMIN D 25 HYDROXY 6. Vitamin B12 deficiency - ICD9: 266.2, ICD10: E53.8 7. History of tobacco abuse - ICD9: V15.82, ICD10: Z87.891 Recently has quit after recent stroke Preet Farrar DO To ER if develops chest pain, shortness of breath, or severe worsening of symptoms. Discussed risks, benefits, alternatives, and potential side effects of medications. Patient expressed understanding and agreed with the plan. Preet Farrar DO [address] [place] [address] documented in this encounter [facility] 11-05-2022 History of Present illness Narrative Chief Complaint Patient presents with: hospital f/up HPI Tia Blanco is a 67 year old female who presents here today for Above Complaints. Tia is an established patient of Dr. Charan DO. Tia is a new patient to me today. Concerns today... ER/hospital follow-up --- [facility] ER visit on 11/02/22 d/t RLE weakness and R foot drop x [address] of head showed left frontal/parietal lobe acue ischemic infact consistent with R lower extremity weakness. X-ray series of lymbar spine showed intact hardware and nothing acute. EKG was NSR rate of 75. Pt was admitted to hospital until 11/04/22. Initiated clopidogrel and high intensity statin therapy. Pt allergic to aspirin. MRI shows subacute infarcts. ECHO:moderate LV hypertrophy, mild aortic stenosis, otherwise normal. Strongly encouraged to stop smoking. Nicotine patch 21 mg daily started. Currently today... Feeling better from hospital. Only residual left over is a slightly slower reaction time to R foot movement. Full ROM of R ankle and foot. No difficulties walking. Taking her Plavix as prescribed. Taking high dose Lipitor as prescribed. Has quite smoking cold turkey--- was smoking about 30 cigarettes per day. Cut down to 10 per day. And now has completely stopped. No cigarettes at all since Thursday ( x 4 days). Denies any cravings so far. Feels good with stopping this. The stroke/health scare was enough for her to stay motivated with it she thinks. Not using at patches or anything at the moment. Declines wellbutrin -- has tried this before for cessation and did not like the way it made her feel. Had vascular and neurology appt yesterday. Prior to stroke -- was working out on treadmill, walking at speed of 2.5mph 30 minutes every day. Has taken 1 week off to recover from hospital admission and plans to get back to this regimen starting next week. Pt tearful about dx of stroke -- caught pt off guard. Makes her worried about her health and future. No current therapist. Past medical history, appointments, medications, allergies reviewed. Previous Medical History PAST MEDICAL HISTORY Diagnosis Date Aortic stenosis, moderate 08/2019 Benign hypertensive heart disease Celiac disease Diabetes mellitus without mention of complication Diabetes mellitus Fatty liver Grave's disease IBS (irritable bowel syndrome) Medical marijuana use has card Ulcerative colitis, unspecified Vitamin D deficiency Previous Surgical History PAST SURGICAL HISTORY Procedure Laterality Date COLONOSCOPY FLX DX W/COLLJ SPEC WHEN PFRMD 09/09/2013 Colonoscopy ESOPHAGOGASTRODUODENOSCOPY TRANSORAL DIAGNOSTIC 09/09/2013 EGD INFUSE RADIOACTIVE MATERIALS Iodine ablation for Grave's disease LAP UMBILICAL HERNIA REPAIR 02/17/2000 Lap umbilical hernia with a 19cm mesh LAPAROSCOPY SURG CHOLECYSTECTOMY 03/01/2007 Lap Mary with visiport RUQ insertion LIG/TRNSXJ FLP TUBE ABDL/VAG APPR UNI/BI Tubal ligation Family History FAMILY HISTORY Problem Relation Age of Onset Cervical Cancer Sister Diabetes Father Psychiatry Mother Hypertension Father Heart Mother Heart Father Alzheimer's Disease Mother Breast Cancer Sister Patient Allergies ALLERGIES Allergen Reactions Asa [Salicylates] Gluten Unknown Metformin nausea.. can take name brand Prednisone Itching Sulfa (Sulfonamide * Current Medications Current Outpatient Medications on File Prior to Visit Medication Sig ARMOUR THYROID 120 mg tablet Take 1 tablet PO daily in AM 6x/week. Take 2 tablets 1x/week. Cyanocobalamin 1,000 mcg TbER Take 3 tablets by mouth once daily. carvedilol (COREG) 25 mg tablet Take 25 mg by mouth twice daily with meals. spironolactone (ALDACTONE) 25 mg tablet Take 25 mg by mouth once daily. glimepiride (AMARYL) 2 mg tablet Take 1 tablet by mouth twice daily with meals. metoprolol succinate ER (TOPROL XL) 50 mg 24 hr tablet Take 1 tablet by mouth once daily. ergocalciferol 50,000 unit capsule (VITAMIN D2, DRISDOL) Take 1 capsule by mouth two times a week. blood sugar diagnostic (FREESTYLE LITE STRIPS) test strip Test blood sugar(s) 2 times daily. Dx: 250.02. Insulin: No Blood Pressure Monitor (BLOOD PRESSURE KIT) 1 Each as directed. Dx: essential hypertension blood sugar diagnostic (BLOOD GLUCOSE TEST) test strip Test blood sugar(s) 2 times daily. Dx: Type 2 DM - Uncontrolled E11.65 Insulin: No Lancets lancets Test blood sugar(s) 2 times daily. Dx: Type 2 DM - Uncontrolled E11.65 Insulin: No Lancets (FREESTYLE LANCETS) lancets Test blood sugar(s) 2 times daily. Dx: 250.02. Insulin: No Current Facility-Administered Medications on File Prior to Visit Medication perflutren lipid microspheres 1.3 mL in NaCl (PF) 0.9% 10 mL injection (DEFINITY) sodium chloride 0.9 % (flush) 10 mL (BD POSIFLUSH) Social History Social History Tobacco Use Smoking status: Every Day Packs/day: 0.50 Types: Cigarettes Smokeless tobacco: Never Tobacco comments: 20+ years smoking Substance Use Topics Alcohol use: Yes Drug use: No REVIEW OF SYSTEMS: as above Reviewed relevant PMHx, PSHx, Social Hx, current medications and allergies. Review of Symptoms REVIEW OF SYSTEMS See HPI. All other systems are negative. EXAM: BP 110/62 (BP Site: Left Arm, BP Position: Sitting, BP Cuff Size: Regular Adult) Pulse 72 Resp 16 Wt 79.6 kg (175 lb 6.4 oz) BMI 34.26 kg/m General Appearance: Well appearing, alert, in no acute distress, well-hydrated, well nourished.. Skin: Skin color, texture, turgor normal, no suspicious rashes or lesions. Head: Normocephalic, no masses, lesions, tenderness or abnormalities. Lungs: Lungs clear to auscultation. No wheezing, rhonchi, rales.. Heart: RRR without murmur, gallop, or rubs. No ectopy. Extremities: No deformities, edema, skin discoloration, clubbing or cyanosis. Good capillary refill. Musculoskeletal: No joint swelling, deformity, or tenderness. Peripheral Pulses: Normal. Neurologic: Gait normal. Reflexes normal and symmetric. Sensation grossly intact. Full ROM of R ankle. Health Maintenance List COVID-19 VACCINE(1) Never done PNEUMOCOCCAL: 65+(1 - PCV) Never done DTAP,TDAP,TD(1 - Tdap) Never done SHINGRIX VACCINE(1 of 2) Never done MAMMOGRAM due on 11/16/2014 DILATED RETINAL EXAM due on 07/10/2022 ADVANCE DIRECTIVE DISCUSSION Never done DEPRESSION ASSESSMENT due on 09/28/2022 BP CONTROLLED (<130/80) due on 10/23/2022 DIABETIC FOOT EXAM due on 10/23/2022 URINE ALBUMIN:CREATININE RATIO due on 11/13/2022 INFLUENZA(1) due on 03/27/2023 HBA1C due on 03/09/2023 LDL CHOLESTEROL due on 09/08/2023 COLORECTAL CANCER SCREENING due on 09/09/2023 ANNUAL PCP TEAM CHRONIC DISEASE VISIT due on 09/10/2023 BONE DENSITY Completed HEPATITIS C SCREENING Completed ASSESSMENT/PLAN: 1. Ischemic stroke without residual deficits (HCC) - ICD9: 434.91, ICD10: I63.9 (primary diagnosis) Continue plavix and high intensity statin therapy routinely. Discussed importance of exercise and diet to decrease risk factors of reoccurrence. Slowly get back to treadmill regimen. Discussed importance of keeping HTN, dyslipidemia, and DM under good control to prevent reoccurrence. Discussed emotional component to recent diagnosis -- pt admits to feeling overwhelmed and shocked currently. Declined any counseling or medication at this time -- pt understands and agrees to discuss at follow-up appt in 1 month if mood and depression are not improving with time. - CLOPIDOGREL 75 MG TABLET - ATORVASTATIN 80 MG TABLET 2. Essential hypertension, benign - ICD9: 401.1, ICD10: I10 - good control - Continue current medication(s) - Encouraged dietary sodium restriction/DASH diet - Recommended regular aerobic exercise. - Recommend home blood pressure monitoring, to bring results in on next visit - Discussed need and benefit for weight loss. - Follow up in 1 month for BP recheck. - Goal of BP <130/80 - Recommend home or pharmacy blood pressure monitoring - Recommended no refined sugar, low refined starch, healthy oil intake (olive oil), healthy protein (fish) along the lines of the Mediterranean diet. 3. Uncontrolled type 2 diabetes mellitus with hyperglycemia (HCC) - ICD9: 250.02, ICD10: E11.65 Last HgA1c at 7. Stable. Repeat lab work as ordered prior about 1 week prior to upcoming appt. - Continue current medications - Encouraged regular aerobic exercise and weight loss - BP goal of <130/80 - LDL goal of <100 - Patient urged to quit smoking. 4. Dyslipidemia - ICD9: 272.4, ICD10: E78.5 - to be determined upon return of lab results - Continue current medication. - Encouraged following a low fat, low cholesterol diet. - Discussed the benefits of regular aerobic exercise and weight loss. - Encouraged following a low carbohydrate, healthy oil intake diet. - Continue current therapy. 5. Encounter for smoking cessation counseling - ICD9: V65.42, 305.1, ICD10: Z71.6 Discussed OTC nicotine patches or wellbutrin regimen. Pt declined but willing to reach out if she feels cessation has become difficult. Re-assess at upcoming appt in 1 month. - Cessation encouraged. - Physiologic and physical aspects of tobacco addiction as well as strategies for quitting were discussed. - Counseling was given focusing on the harmful effects of this addiction especially given the patient's medical condition(s) which will be worsened because of the chemicals in tobacco. - Counseling was given 3-4 minutes. - Recommended to called 1-800-QUIT NOW RTO in 1 months, sooner if needed. Prescription instructions reviewed with patient as applicable. Potential red flag symptoms discussed with the patient. Reviewed appropriate action plan to take if red flag symptoms occur. Patient agreeable to treatment plan. Jacqueline Corbin APRN.TECHNICAL COMMUNICATOR [address] [place] [address] documented in this encounter [facility] 11-02-2022 Miscellaneous Notes Reason for Call: Left foot drop, cool Outcome: Go to ED now. Patient acknowledged understanding and stated she would have daughter take her to ED. Reason for Disposition Diabetes mellitus Foot is cool or blue in comparison to other side Protocols used: Foot Vchy-CACED-UM, Diabetes - Foot Problems and Mqrwmghrk-NCAHA-DO Patient states she is Type II diabetic and had back surgery in 2020. documented in this encounter [facility] 10-08-2022 Miscellaneous Notes Pj--09/10/22 Nov--12/10/22 Last refill--b-12 05/07/22 90 with 3 refills Oblong thyroid 05/28/22 90 with 1 refills Last labs--09/08/22 Patient has been identified by name and date of : Yes Last office visit in this department: 09/10/2022 RX INSTRUCTIONS: Patient aware RX will be sent to pharmacy. No need to notify patient. Patient phones requesting refills as follows: Requested Prescriptions Pending Prescriptions Disp Refills ARMOUR THYROID 120 mg tablet 90 tablet 1 Sig: Take 1 tablet PO daily in AM 6x/week. Take 2 tablets 1x/week. Cyanocobalamin 1,000 mcg TbER 90 tablet 3 Sig: Take 3 tablets by mouth once daily. Please review and advise. Susan Goddard Pss documented in this encounter [facility] 09-04-2022 Miscellaneous Notes Pt informed, verbalized understanding Sofia Valente Ma Labs ordered, please inform patient Preet Farrar DO Patient scheduled with Dr. Farrar on 09/10. Patient asking for lab orders to be placed. Please advise and call patient. documented in this encounter [facility] 08-27-2022 Miscellaneous Notes Patient has been identified by name and date of : Yes Last office visit in this department: Visit date not found RX INSTRUCTIONS: Patient aware RX will be sent to pharmacy. No need to notify patient. Patient phones requesting refills as follows: Patient is out and requesting a same day refill Requested Prescriptions Pending Prescriptions Disp Refills metoprolol succinate ER (TOPROL XL) 50 mg 24 hr tablet 90 tablet 1 Sig: Take 1 tablet by mouth once daily. Please review and advise. Chelo Bassett documented in this encounter [facility] 05-28-2022 Miscellaneous Notes Pt calling and states she needs a refill on her thyroid medication. pt checking to see if she needs blood work 1st. when did you want to see her back Please advise pt. Patient has been identified by name and date of : Yes Patient phones for refill(s): Requested Prescriptions Pending Prescriptions Disp Refills ARMOUR THYROID 120 mg tablet 90 tablet 1 Sig: Take 1 tablet PO daily in AM 6x/week. Take 2 tablets 1x/week. Date of last office visit in primary care: 02/19/22 Last 2 Encounter Wt Readings: Date: Wt: 01/31/2022 0 kg () 01/23/2022 0 kg () Previous labs/tests for medication: Thyroid: TSH (uU/mL) Date Value 11/13/2021 2.660 Thank you. Robert Ulloa LPN documented in this encounter [facility] 05-06-2022 Miscellaneous Notes Patient last visit with PCP 02/19/22 Follow up appointment scheduled none Donna Novak Ma documented in this encounter [facility] 04-07-2022 Miscellaneous Notes Zoey from [facility], and Pts POA called and asked to have lab results from 04/04/22 faced over. Faxed to # [phone]. documented in this encounter [facility] 04-02-2022 Miscellaneous Notes Patient is asking that this rx be sent before 04/09/22 so it will sync with her other refills. Patient has been identified by name and date of : Yes Patient is asking that this rx be sent before 04/09/22 so it will sync with her other refills. Pending Prescriptions Disp Refills ERGOCALCIFEROL (VITAMIN D2) 1,250 MCG (50,000 UNIT) CAPSULE 24 capsule 3 Sig: Take 1 capsule by mouth two times a week. DAVE: No PJ-02/19/22 Labs-02/19/22 NOV-none med filled 05/01/21 RX INSTRUCTIONS: Patient aware RX will be sent to pharmacy. No need to notify patient. Karen Thayer Pss documented in this encounter [facility] 02-28-2022 History of Present illness Narrative Radiology Service Progress Note PATIENT NAME: Tia Blanco DATE OF SERVICE: February 28, 2022 TIME: 10:22 AM PATIENT IDENTITY VERIFICATION COMPLETED USING TWO (2) IDENTIFIERS: Name and Date of confirmed by patient verbally. FALL SCREENING: Has the patient had 2 falls in the last year or 1 fall with injury or currently using an Ambulatory Assistive Device (Walker, Cane, Wheelchair, Crutches, etc.)? No PATIENT GENDER DATA: Female. status: : No status: NO. PATIENT RELEVANT IMPLANT DATA REVIEWED: Not Applicable RADIOLOGY DEPARTMENT: General X-ray: Exam(s) Completed: Lower Extremity X-Ray(s): Ankle, Left and Wt. Bearing PERIPHERAL IV DATA: Not applicable SIGNED BY: RT Whitley(R) February 28, 2022 10:22 AM documented in this encounter [facility] 02-27-2022 Miscellaneous Notes This PSS spoke to US coco Jha who will call patient to address her questions. Patient phoned very stressed out. Reports she is having a renal US tomorrow morning and was told today there are instructions she needs to follow. Reviewed the instructions and patient states she is just going to go NPO after 10 pm and take 1 dose of beano in the morning prior to test, and take her meds afterwards. Asking Actuarial Consultant to please advise patient if this would be ok and phone her with reply. Reports she takes her diabetic medication at night. Patient is very angry that noone told her the instructions until today. Patient calling with medication and prep questions regarding upcoming ultrasound tomorrow. General instructions were reviewed with patient as copied from record: Patient Instructions Visit Type: ULTRA RENAL/ART ZULMA Please fast beginning at 10:00 the night before your Vascular Lab Appointment. Avoid eating gas producing food and drink the day before exam. Take one dose of an agent containing Simethicone the morning of your test (example:Gas-x, Phazyme or Beano). You may take your Blood Pressure medication with a sip of water. If you take Insulin or other medications for Diabetes, ask your Doctor how you should take these medications on the day of the test. Patient reports she was not instructed to take any Simethicone agent as states in instructions. Patient requesting someone to contact her from the Ultrasound office to answer her specific questions. PH: [phone]. Thank you. documented in this encounter [facility] 02-21-2022 Miscellaneous Notes Spoke with pt gave information provided . Pt voices understanding. Please inform patient as below- this lab has to be reordered for her to have drawn again for renin/aldosterone Preet Farrar DO ----- Message from Michelle Hannah sent at 02/20/2022 10:10 AM EDT ----- Regarding: Cancelled Test Please place a new order for aldren, if clinically indicated. This notification serves to inform you that a test(s) have been canceled for reason(s) denoted on the result report within the Epic chart. Thank you. If any questions, please contact Laboratory Client Services. DO NOT REPLY TO THIS MESSAGE. Please inform patient that her labs show that her a1c is stable at 6.5%. Her urinalysis shows that blood is in the urine, this has been present the last few times she has given samples. Preet Farrar DO documented in this encounter [facility] 02-20-2022 Miscellaneous Notes Patient calling and states due to her checking her blood sugar twice a day, the number of test strips (qty: 50) she receives per month does not last her a whole month. She is asking if 100 test strips can be dispensed each time? Script with qty of 100 test strips pended for your review. No call back needed to patient, if agreeable. Thank you. documented in this encounter [facility] 02-19-2022 History of Present illness Narrative Patient presents with: Follow Up HPI: Tia Blanco is a 66 year old female who presents to the office today for review of health conditions. Concerns today: She has recently over the last few weeks had elevated BLOOD PRESSURE in the 160-180s/80s at home. Has a new BLOOD PRESSURE cuff at home, no chest pain, Does get occasional shortness of breath and palpitations. Has been sitting more since she has injured her left foot/ankle. Hasn't been able to exercise. Overall still eating a healthy low salt diet. Is taking her metoprolol 25 mg XL once a day . Ms. Blanco has past history of diabetes. Since our last visit she denies excessive thirst or increased frequency of urination, chest pain or dyspnea , new or unusual visual symptoms and low sugar/hypoglycemic reactions. Follows a diabetic diet some of the time. She is compliant with medication(s) and is tolerating med(s) without any side effects. She reports checking her glucose on a once a day schedule with sugars in the <120 range. Patient's last HgA1C was Hemoglobin A1C (%) Date Value 11/13/2021 6.3 04/16/2021 6.3 ) Last Ophthalmology exam was within the past 12 months Ms. Blanco reports history of hyperlipidemia. Current therapy includes diet and exercise. Denies side effects of muscle weakness or achiness. Her most recent lipid panels are reviewed. Cholesterol, Total (mg/dL) Date Value 04/16/2021 193 HDL Cholesterol (mg/dL) Date Value 04/16/2021 58 LDL Cholesterol (mg/dL) Date Value 04/16/2021 91 Triglyceride (mg/dL) Date Value 04/16/2021 222 Ms. Blanco indicates a history of hypertension and states that she is feeling well and denies any symptoms referable to elevated blood pressure. Specifically denies headache, chest pain, and peripheral edema. Patient denies any side effects of her medication(s) and is compliant with their regimen. Last 3 Encounter BP Readings: Date: BP: 02/19/2022 160/80 01/31/2022 156/84 01/23/2022 182/96 She watches her diet for sodium, low fat and low cholesterol some of the time. She does check BP's generally. Tia gets sporadic irregular exercise. PAST MEDICAL HISTORY Diagnosis Date Aortic stenosis, moderate 08/2019 Benign hypertensive heart disease Celiac disease Diabetes mellitus without mention of complication Diabetes mellitus Fatty liver Grave's disease IBS (irritable bowel syndrome) Medical marijuana use has card Ulcerative colitis, unspecified Vitamin D deficiency PAST SURGICAL HISTORY Procedure Laterality Date COLONOSCOPY FLX DX W/COLLJ SPEC WHEN PFRMD 09/09/2013 Colonoscopy ESOPHAGOGASTRODUODENOSCOPY TRANSORAL DIAGNOSTIC 09/09/2013 EGD INFUSE RADIOACTIVE MATERIALS Iodine ablation for Grave's disease LAP UMBILICAL HERNIA REPAIR 02/17/2000 Lap umbilical hernia with a 19cm mesh LAPAROSCOPY SURG CHOLECYSTECTOMY 03/01/2007 Lap Mary with visiport RUQ insertion LIG/TRNSXJ FLP TUBE ABDL/VAG APPR UNI/BI Tubal ligation Social History Tobacco Use Smoking status: Current Every Day Smoker Packs/day: 0.50 Types: Cigarettes Smokeless tobacco: Never Used Tobacco comment: 20+ years smoking Substance Use Topics Alcohol use: Yes Drug use: No FAMILY HISTORY Problem Relation Age of Onset Cervical Cancer Sister Diabetes Father Psychiatry Mother Hypertension Father Heart Mother Heart Father Alzheimer's Disease Mother Breast Cancer Sister Allergies: ALLERGIES Allergen Reactions Asa [Salicylates] Gluten Unknown Metformin nausea.. can take name brand Prednisone Itching Sulfa (Sulfonamide * Current Meds: metoprolol succinate ER (TOPROL XL) 50 mg 24 hr tablet Take 1 tablet by mouth once daily. Blood Pressure Monitor (BLOOD PRESSURE KIT) 1 Each as directed. Dx: essential hypertension blood sugar diagnostic (FREESTYLE LITE STRIPS) test strip Test blood sugar(s) 2 times daily. Dx: 250.02. Insulin: No ARMMILANA THYROID 120 mg tablet Take 1 tablet PO daily in AM 6x/week. Take 2 tablets 1x/week. glimepiride (AMARYL) 2 mg tablet Take 1 tablet by mouth daily with breakfast. cyanocobalamin, vitamin B-12, 3,000 mcg cap Take 3,000 mcg by mouth once daily. ergocalciferol 50,000 unit capsule (VITAMIN D2, DRISDOL) Take 1 capsule by mouth two times a week. blood sugar diagnostic (BLOOD GLUCOSE TEST) test strip Test blood sugar(s) 2 times daily. Dx: Type 2 DM - Uncontrolled E11.65 Insulin: No Lancets lancets Test blood sugar(s) 2 times daily. Dx: Type 2 DM - Uncontrolled E11.65 Insulin: No Lancets (FREESTYLE LANCETS) lancets Test blood sugar(s) 2 times daily. Dx: 250.02. Insulin: No Review of Systems: The remainder of the review of systems is negative. PE: 02/19/22 1120 02/19/22 1146 BP: 130/70 160/80 Pulse: 64 Resp: 16 Temp: 36.3 C (97.4 F) TempSrc: Left Tympanic Gen: A&O, NAD, non-toxic appearing, cooperative HEENT: NT/AC, PERRLA, EOMs intact b/l, nares clear and patent b/l, pharynx without erythema, exudate or lesions. Uvula midline. MMM Neck: supple, No cervical LAD, no thyromegaly, no carotid bruits CV: RRR, normal S1 and S2, 2/6 LUSB soft blowing murmurs, no gallops, no rubs, Pulses 2+ and symmetric in UE and LE b/l Lungs: normal respiratory effort, CTA b/l, no wheezing or rhonchi or rales MS:left leg in walking boot Neuro: CN II-XII intact b/l Skin: warm, dry, intact, No rashes or lesions on exposed skin. Foot exam: no edema, normal pulses ASSESSMENT/PLAN: 1. Uncontrolled hypertension - ICD9: 401.9, ICD10: I10 (primary diagnosis) - newly diagnosed - Increase metoprolol (Lopressor/Toprol) - Encouraged dietary sodium restriction/DASH diet - Recommended regular aerobic exercise. - Recommend home blood pressure monitoring, to bring results in on next visit - Reviewed risks of HTN and principles of treatment - Goal of BP <130/80 - Patient counselled on smoking cessation. - Recommend home or pharmacy blood pressure monitoring - Recommended no refined sugar, low refined starch, healthy oil intake (olive oil), healthy protein (fish) along the lines of the Mediterranean diet. - US CAROTID ARTERIES ZULMA VAS LAB - ECHO - PERFLUTREN LIPID MICROSPHERES 1.1 MG/ML INJECTION IN NS 10 ML - SODIUM CHLORIDE 0.9 % (FLUSH) INJECTION SYRINGE - ALDOSTERONE/DIRECT RENIN RATIO - URINALYSIS, WITH MICROSCOPIC - COMP METABOLIC PANEL - CORTISOL BLD - ECG COMPLETE - US RENAL ARTERY ZULMA VAS LAB 2. Palpitations - ICD9: 785.1, ICD10: R00.2 - need for further evaluation due to her risk factors and sudden increase of BP - US CAROTID ARTERIES ZULMA VAS LAB - ECHO - PERFLUTREN LIPID MICROSPHERES 1.1 MG/ML INJECTION IN NS 10 ML - SODIUM CHLORIDE 0.9 % (FLUSH) INJECTION SYRINGE - ALDOSTERONE/DIRECT RENIN RATIO - URINALYSIS, WITH MICROSCOPIC - COMP METABOLIC PANEL - CORTISOL BLD - ECG COMPLETE - US RENAL ARTERY ZULMA VAS LAB 3. Uncontrolled type 2 diabetes mellitus with hyperglycemia (HCC) - ICD9: 250.02, ICD10: E11.65 Controlled. - Continue current medications - HGB A1C 4. Essential hypertension, benign - ICD9: 401.1, ICD10: I10 - poor control - Increase metoprolol (Lopressor/Toprol) - Encouraged dietary sodium restriction/DASH diet - Recommended regular aerobic exercise. - Recommend home blood pressure monitoring, to bring results in on next visit - Goal of BP <130/80 - Patient counselled on smoking cessation. - Recommend home or pharmacy blood pressure monitoring - Recommended no refined sugar, low refined starch, healthy oil intake (olive oil), healthy protein (fish) along the lines of the Mediterranean diet. - METOPROLOL SUCCINATE ER 50 MG TABLET,EXTENDED RELEASE 24 HR 5. Acquired hypothyroidism - ICD9: 244.9, ICD10: E03.9 - Instructed patient on importance of taking on an empty stomach either first thing in the morning or at bedtime. Stable - Continue current medications Preet Farrar DO To ER if develops chest pain, shortness of breath, or severe worsening of symptoms. Discussed risks, benefits, alternatives, and potential side effects of medications. Patient expressed understanding and agreed with the plan. Preet Farrar DO [address] [place] [address] documented in this encounter [facility] 02-12-2022 Miscellaneous Notes Patient notified of updates, verbalizes understanding of instructions.Pt has a follow up appt with PCP. Waiting for authorization for BP cuff. eYsi Henry LPN Would recommend purchasing a new BLOOD PRESSURE cuff and continuing to monitor readings at home. Also can make a nurse visit to check BLOOD PRESSURE here as well. Preet Farrar DO Patient calling to update Dr. Farrar. She reports she saw Leah Rivero on 01/31/22 for hypertension and during that visit an increase in her blood pressure medication was discussed. At that time patient felt her BP was elevated due to recent back surgery and foot fracture stress and patient felt that it was otherwise not elevated and did not want to increase her medication at that time. Patient was instructed to keep a log of her BP and pulse daily and bring results to next OV with Dr. Farrar to discuss on 02/19/22. Patient calling this morning to state she has been taking her BP's a couple hours after taking her morning BP medication and she has been getting conflicting results-she states she takes her BP and it is higher and then she rechecks it only minutes later and it is significantly lower. Here are some of her results: 02/07/22: 166/79, then a few minutes later it was 135/86. Heart rate 70's. 02/09/22: 187/83, then a few minutes later it was 166/71. Heart rate 70's. 02/10/22: 167/82, then a few minutes later it was 145/72. Heart rate 70's. Yesterday: 180/74, then a few minutes later it was 164/76. Heart rate 70's. Patient states her BP cuff is about 2 years old. Discussed recent order sent last month to [employer] for new BP cuff and patient states she did not know an order was sent for this and she will contact [employer] today and try to pepper picker new BP monitor. She wanted to update Dr. Farrar of her BP results now instead of waiting until 02/19 appt due to being concerned. She denies any chest pain, shortness of breath or other symptoms. Please advise. Thank you. documented in this encounter [facility] 02-10-2022 History of Present illness Narrative Radiology Service Progress Note PATIENT NAME: Tia Blanco DATE OF SERVICE: February 10, 2022 TIME: 10:01 AM PATIENT IDENTITY VERIFICATION COMPLETED USING TWO (2) IDENTIFIERS: Name and Date of confirmed by patient verbally. FALL SCREENING: Has the patient had 2 falls in the last year or 1 fall with injury or currently using an Ambulatory Assistive Device (Walker, Cane, Wheelchair, Crutches, etc.)? No PATIENT GENDER DATA: Female. status: : No status: NO. PATIENT RELEVANT IMPLANT DATA REVIEWED: Not Applicable RADIOLOGY DEPARTMENT: General X-ray: Exam(s) Completed: Lower Extremity X-Ray(s): Ankle, Left and Wt. Bearing PERIPHERAL IV DATA: Not applicable SIGNED BY: RT Maria Teresa(R) February 10, 2022 10:01 AM documented in this encounter [facility] 01-31-2022 Instructions Leah Rivero APRN.DEREK - 01/31/2022 11:45 AM EDT Record your BP and heart rate once daily until your appointment with Dr. Farrar. If your BP is consistently over 160/100, please let us know before then. You can discuss your thyroid medication with her at that time as well. documented in this encounter [facility] 01-31-2022 History of Present illness Narrative Chief Complaint Patient presents with: Blood Pressure HPI Tia Blanco is a 66 year old female who presents here today for Evaluation of elevated blood pressure. Today: Had high BP when released from her back surgery. High again when broke her foot. Feels like this incidences caused her the elevated BP r/t her stress and pain. Can see her heartbeat beating in her eyes at times. Blood pressure machine at home was dropped-trying to get a new one from insurance. Denies CP, headaches. Occasional palpitations. Has stopped smoking weed-does have medical card. Past medical history, appointments, medications, allergies reviewed. Previous Medical History PAST MEDICAL HISTORY Diagnosis Date Aortic stenosis, moderate 08/2019 Benign hypertensive heart disease Celiac disease Diabetes mellitus without mention of complication Diabetes mellitus Fatty liver Grave's disease IBS (irritable bowel syndrome) Medical marijuana use has card Ulcerative colitis, unspecified Vitamin D deficiency Previous Surgical History PAST SURGICAL HISTORY Procedure Laterality Date COLONOSCOPY FLX DX W/COLLJ SPEC WHEN PFRMD 09/09/2013 Colonoscopy ESOPHAGOGASTRODUODENOSCOPY TRANSORAL DIAGNOSTIC 09/09/2013 EGD INFUSE RADIOACTIVE MATERIALS Iodine ablation for Grave's disease LAP UMBILICAL HERNIA REPAIR 02/17/2000 Lap umbilical hernia with a 19cm mesh LAPAROSCOPY SURG CHOLECYSTECTOMY 03/01/2007 Lap Mary with visiport RUQ insertion LIG/TRNSXJ FLP TUBE ABDL/VAG APPR UNI/BI Tubal ligation Family History FAMILY HISTORY Problem Relation Age of Onset Cervical Cancer Sister Diabetes Father Psychiatry Mother Hypertension Father Heart Mother Heart Father Alzheimer's Disease Mother Breast Cancer Sister Patient Allergies ALLERGIES Allergen Reactions Asa [Salicylates] Gluten Unknown Metformin nausea.. can take name brand Prednisone Itching Sulfa (Sulfonamide * Current Medications Current Outpatient Medications on File Prior to Visit Medication Sig Blood Pressure Monitor (BLOOD PRESSURE KIT) 1 Each as directed. Dx: essential hypertension blood sugar diagnostic (FREESTYLE LITE STRIPS) test strip Test blood sugar(s) 2 times daily. Dx: 250.02. Insulin: No ARMOUR THYROID 120 mg tablet Take 1 tablet PO daily in AM 6x/week. Take 2 tablets 1x/week. glimepiride (AMARYL) 2 mg tablet Take 1 tablet by mouth daily with breakfast. cyanocobalamin, vitamin B-12, 3,000 mcg cap Take 3,000 mcg by mouth once daily. metoprolol succinate ER (TOPROL XL) 25 mg 24 hr tablet Take 1 tablet by mouth once daily. ergocalciferol 50,000 unit capsule (VITAMIN D2, DRISDOL) Take 1 capsule by mouth two times a week. nystatin-triamcinolone (MYCOLOG) ointment Apply sparingly to perineum twice daily for irritation/infection. (Patient not taking: Reported on 01/30/2022 ) blood sugar diagnostic (BLOOD GLUCOSE TEST) test strip Test blood sugar(s) 2 times daily. Dx: Type 2 DM - Uncontrolled E11.65 Insulin: No cyclobenzaprine (FLEXERIL) 10 mg tablet Take 1 tablet by mouth three times daily as needed for Muscle Spasm or Pain. (Patient not taking: Reported on 01/30/2022 ) Lancets lancets Test blood sugar(s) 2 times daily. Dx: Type 2 DM - Uncontrolled E11.65 Insulin: No Lancets (FREESTYLE LANCETS) lancets Test blood sugar(s) 2 times daily. Dx: 250.02. Insulin: No No current facility-administered medications on file prior to visit. Social History Social History Tobacco Use Smoking status: Current Every Day Smoker Packs/day: 0.50 Types: Cigarettes Smokeless tobacco: Never Used Tobacco comment: 20+ years smoking Substance Use Topics Alcohol use: Yes Drug use: No Review of Symptoms REVIEW OF SYSTEMS See HPI, otherwise negative EXAM: BP 156/84 Pulse 66 Resp 16 General Appearance: Well appearing, alert, in no acute distress, well-hydrated, well nourished.. Head: Normocephalic, no masses, lesions, tenderness or abnormalities. Lungs: Lungs clear to auscultation. No wheezing, rhonchi, rales. Unlabored on room air. Heart: RRR ,gallop, or rubs. No ectopy. + murmur Health Maintenance List DTAP,TDAP,TD(1 - Tdap) Never done SHINGRIX VACCINE(1 of 2) Never done MAMMOGRAM due on 11/16/2014 PNEUMOVAX AGE 65 AND OVER WITH 5YR LOOKBACK(1) due on 2020 ADVANCE DIRECTIVE DISCUSSION Never done COVID-19 VACCINE(1) due on 10/23/2022 LDL CHOLESTEROL due on 04/16/2022 DEPRESSION SCREENING due on 04/24/2022 HBA1C due on 05/13/2022 INFLUENZA(Season Ended) due on 05/29/2022 DILATED RETINAL EXAM due on 07/10/2022 DIABETIC FOOT EXAM due on 10/23/2022 ANNUAL PCP TEAM CHRONIC DISEASE VISIT due on 10/23/2022 BP CONTROLLED (<130/80) due on 10/23/2022 URINE ALBUMIN:CREATININE RATIO due on 11/13/2022 COLORECTAL CANCER SCREENING due on 09/09/2023 BONE DENSITY Completed HEPATITIS C SCREENING Completed MENINGOCOCCAL CONJUGATE Aged Out Data reviewed Previous records/office notes. ASSESSMENT/PLAN: 1. Essential hypertension, benign - ICD9: 401.1, ICD10: I10 (primary diagnosis) Discussed with patient increasing her blood pressure medication. She feels that it is only elevated r/t her recent back surgery and foot fracture stress. Feels that it is otherwise not elevated. Does not want to increase her medication at this time. Will monitor her BP and HR daily, over the next couple weeks. Will bring results to upcoming appointment with Dr. Farrar (PCP). Discussed red flag warning signs as well as BP parameters with patient. Discussed limiting salt. 2. Acquired hypothyroidism - ICD9: 244.9, ICD10: E03.9 Insurance is no longer covering her Oblong Thyroid, as she is over 65 years old. They would like her to take FOREIGN LANGUAGE INSTRUCTOR Thyroid, but patient is unsure that she should do this. Would like to discuss with Dr. Farrar again at her upcoming appointment. 3. Controlled type 2 diabetes mellitus without complication, without long-term current use of insulin (HCC) - ICD9: 250.00, ICD10: E11.9 Leah Rivero APRN.CNP Greater than 50% of 35-minute visit spent face to face with patient in counseling and education. documented in this encounter [facility] 01-30-2022 Instructions Steve Rodriguez - 01/30/2022 1:55 PM EDT Continue with boot. Repeat xrays in 2 weeks and then again in one month F/u in 1 month If you experience any issues, contact the office immediately documented in this encounter [facility] 01-30-2022 History of Present illness Narrative Consultation requested by Dr. Ryan for an opinion regarding left ankle fracture. My final recommendations will be communicated back to the requesting physician by way of shared Medical record or letter to requesting physician via US mail. Initial Podiatric Office Visit: Chief Complaint: This 66 year old female who presents with chief complaint:left ankle fracture HPI Patient presents to clinic for evaluation of left ankle. She states last week she was walking and she rolled her left foot/ankle. She went to urgent care and had xrays and they were suggestive of left fibula fracture. She was placed in a boot and recommended crutches. She is not using the crutches but is using the boot. She denies any pain. She does have recenty history of lumbar 4-5 fusion. This was performed in november 2020 and was finally cleared from her surgeon. Patient is diabetic and her last ac1 was 6.3 in October. PAIN EVALUATION No data found in the last 1 encounters. Hemoglobin A1C (%) Date Value 11/13/2021 6.3 04/16/2021 6.3 11/26/2020 9.1 08/22/2020 8.0 05/18/2020 7.4 PCP: Preet Farrar DO PAST MEDICAL HISTORY Diagnosis Date Aortic stenosis, moderate 08/2019 Benign hypertensive heart disease Celiac disease Diabetes mellitus without mention of complication Diabetes mellitus Fatty liver Grave's disease IBS (irritable bowel syndrome) Medical marijuana use has card Ulcerative colitis, unspecified Vitamin D deficiency Current Outpatient Medications Medication Sig Blood Pressure Monitor (BLOOD PRESSURE KIT) 1 Each as directed. Dx: essential hypertension blood sugar diagnostic (FREESTYLE LITE STRIPS) test strip Test blood sugar(s) 2 times daily. Dx: 250.02. Insulin: No ARMOUR THYROID 120 mg tablet Take 1 tablet PO daily in AM 6x/week. Take 2 tablets 1x/week. glimepiride (AMARYL) 2 mg tablet Take 1 tablet by mouth daily with breakfast. cyanocobalamin, vitamin B-12, 3,000 mcg cap Take 3,000 mcg by mouth once daily. metoprolol succinate ER (TOPROL XL) 25 mg 24 hr tablet Take 1 tablet by mouth once daily. ergocalciferol 50,000 unit capsule (VITAMIN D2, DRISDOL) Take 1 capsule by mouth two times a week. blood sugar diagnostic (BLOOD GLUCOSE TEST) test strip Test blood sugar(s) 2 times daily. Dx: Type 2 DM - Uncontrolled E11.65 Insulin: No Lancets lancets Test blood sugar(s) 2 times daily. Dx: Type 2 DM - Uncontrolled E11.65 Insulin: No Lancets (FREESTYLE LANCETS) lancets Test blood sugar(s) 2 times daily. Dx: 250.02. Insulin: No nystatin-triamcinolone (MYCOLOG) ointment Apply sparingly to perineum twice daily for irritation/infection. (Patient not taking: Reported on 01/30/2022 ) cyclobenzaprine (FLEXERIL) 10 mg tablet Take 1 tablet by mouth three times daily as needed for Muscle Spasm or Pain. (Patient not taking: Reported on 01/30/2022 ) No current facility-administered medications for this visit. ALLERGIES Allergen Reactions Asa [Salicylates] Gluten Unknown Metformin nausea.. can take name brand Prednisone Itching Sulfa (Sulfonamide * PAST SURGICAL HISTORY Procedure Laterality Date COLONOSCOPY FLX DX W/COLLJ SPEC WHEN PFRMD 09/09/2013 Colonoscopy ESOPHAGOGASTRODUODENOSCOPY TRANSORAL DIAGNOSTIC 09/09/2013 EGD INFUSE RADIOACTIVE MATERIALS Iodine ablation for Grave's disease LAP UMBILICAL HERNIA REPAIR 02/17/2000 Lap umbilical hernia with a 19cm mesh LAPAROSCOPY SURG CHOLECYSTECTOMY 03/01/2007 Lap Mary with visiport RUQ insertion LIG/TRNSXJ FLP TUBE ABDL/VAG APPR UNI/BI Tubal ligation FAMILY HISTORY Problem Relation Age of Onset Cervical Cancer Sister Diabetes Father Psychiatry Mother Hypertension Father Heart Mother Heart Father Alzheimer's Disease Mother Breast Cancer Sister Social History Tobacco Use Smoking status: Current Every Day Smoker Packs/day: 0.50 Types: Cigarettes Smokeless tobacco: Never Used Tobacco comment: 20+ years smoking Substance Use Topics Alcohol use: Yes Drug use: No REVIEW OF SYSTEMS GENERAL: Negative for Malaise, significant weight loss, fever RESPIRATORY: Negative for cough, wheezing and shortness of breath CARDIOVASCULAR: Negative for chest pain, leg swelling and palpitations GI: Negative for abdominal discomfort, blood in stools or black stools and change in bowel habits : Negative for dysuria, frequency and incontinence MUSCULOSKELETAL: Negative for joint pain or swelling, back pain, and muscle pain. SKIN: Negative for lesions, rash, and itching. HEMATOLOGY/LYMPHOLOGY Negative for prolonged bleeding, bruising easily, and swollen nodes. ENDOCRINE: Negative for cold or heat intolerance, polyuria, polydipsia and goiter. NEURO: negative Physical Exam: Constitutional: Pt is a well developed 66 year old female who is alert, oriented and cooperative Eyes: Following during examination. No redness or drainage. Respiratory: RR normal and nonlabored. Even breathing. No evidence of distress or shortness of breath. Psychology: Patient is engaged during conversation. Normal affect and mood. Does not appear depressed or anxious during encounter. Vascular: Dorsalis pedis and posterior tibial pulses palpable left Capillary Fill time < 5 seconds to digits 1-5 left Skin temperature warm to warm proximal to distal left Hair growth present to digits Neurological: intact light touch/epicritic sensation Vibratory sensation decreased left Slightly decreased protective sensation Dermatological: Nails 1-5 left appear normal. Webspaces clean and dry 1-4 left. Skin appears well hydrated and supple. good color, texture, turgor. No open lesions present. No callosities present. Musculoskeletal/Orthopaedic: Patient has no pain to palpation of left foot and ankle Foot type is neutral structurally AJ ROM is full with knee extended and flexed 1st MPJ is full when loaded and no pain or crepitus are noted with ROM. MTJ, STJ are full and free of pain and crepitus. +5/5 muscle strength dorsiflexion, plantarflexion, inversion, eversion b/l Radiographs: 3 views left ankle reviewed January 30, 2022: I have personally reviewed and interpreted these XR myself: Nondisplaced fracture of left fibula ASSESSMENT: (Y77.586R) Closed fracture of distal end of left fibula, unspecified fracture morphology, initial encounter (primary encounter diagnosis) PLAN: 1. History and physical examination performed. 2. XR reviewed with patient and interpreted today 3. Discussed fracture of left fibula. This is nondisplaced. Continue with boot. 4. Will repeat xrays in 2 weeks and then again in 4 weeks Steve Rodriguez DPM Podiatry [address] [place] [address] Dept: [phone] Dept AMB ROOMING INTAKE FLOWSHEET DATA Risk Screening Do you have concerns about personal safety or safety in the home?: No Patient presents with: Left Foot - New Patient, Fracture Patient is here for L foot fracture. Occurred a week ago. Has been NWB in boot. documented in this encounter [facility] 01-23-2022 History of Present illness Narrative Images from the original note were not included. Subjective Patient came in with complaints of left ankle pain. Patient said she twisted her ankle in [place]. Said it does hurt to walk on it. Did notice some swelling. No loss of feeling or sensation. The history is provided by the patient. No language asst was used. Review of Systems Constitutional: Negative. Skin: Negative. Objective Physical Exam Constitutional: Appearance: Normal appearance. Pulmonary: Effort: Pulmonary effort is normal. Musculoskeletal: Feet: Feet: Comments: Swelling noted in area marked above. Pain over area when palpable. Neurological: Mental Status: She is alert. PAST MEDICAL HISTORY Diagnosis Date Aortic stenosis, moderate 08/2019 Benign hypertensive heart disease Celiac disease Diabetes mellitus without mention of complication Diabetes mellitus Fatty liver Grave's disease IBS (irritable bowel syndrome) Medical marijuana use has card Ulcerative colitis, unspecified Vitamin D deficiency PAST SURGICAL HISTORY Procedure Laterality Date COLONOSCOPY FLX DX W/COLLJ SPEC WHEN PFRMD 09/09/2013 Colonoscopy ESOPHAGOGASTRODUODENOSCOPY TRANSORAL DIAGNOSTIC 09/09/2013 EGD INFUSE RADIOACTIVE MATERIALS Iodine ablation for Grave's disease LAP UMBILICAL HERNIA REPAIR 02/17/2000 Lap umbilical hernia with a 19cm mesh LAPAROSCOPY SURG CHOLECYSTECTOMY 03/01/2007 Lap Mary with visiport RUQ insertion LIG/TRNSXJ FLP TUBE ABDL/VAG APPR UNI/BI Tubal ligation ALLERGIES Asa [Salicylates], Gluten, Metformin, Prednisone, and Sulfa (Sulfonamide Antibiotics) MEDICATIONS blood sugar diagnostic (FREESTYLE LITE STRIPS) test strip Test blood sugar(s) 2 times daily. Dx: 250.02. Insulin: No ARMOUR THYROID 120 mg tablet Take 1 tablet PO daily in AM 6x/week. Take 2 tablets 1x/week. glimepiride (AMARYL) 2 mg tablet Take 1 tablet by mouth daily with breakfast. metoprolol succinate ER (TOPROL XL) 25 mg 24 hr tablet Take 1 tablet by mouth once daily. ergocalciferol 50,000 unit capsule (VITAMIN D2, DRISDOL) Take 1 capsule by mouth two times a week. blood sugar diagnostic (BLOOD GLUCOSE TEST) test strip Test blood sugar(s) 2 times daily. Dx: Type 2 DM - Uncontrolled E11.65 Insulin: No Lancets lancets Test blood sugar(s) 2 times daily. Dx: Type 2 DM - Uncontrolled E11.65 Insulin: No Blood Pressure Monitor (BLOOD PRESSURE KIT) kit 1 Device as directed. Dx: essential hypertension Lancets (FREESTYLE LANCETS) lancets Test blood sugar(s) 2 times daily. Dx: 250.02. Insulin: No cyanocobalamin, vitamin B-12, 3,000 mcg cap Take 3,000 mcg by mouth once daily. nystatin-triamcinolone (MYCOLOG) ointment Apply sparingly to perineum twice daily for irritation/infection. cyclobenzaprine (FLEXERIL) 10 mg tablet Take 1 tablet by mouth three times daily as needed for Muscle Spasm or Pain. FAMILY HISTORY Problem Relation Age of Onset Cervical Cancer Sister Diabetes Father Psychiatry Mother Hypertension Father Heart Mother Heart Father Alzheimer's Disease Mother Breast Cancer Sister Social History Tobacco Use Smoking status: Current Every Day Smoker Packs/day: 0.50 Types: Cigarettes Smokeless tobacco: Never Used Tobacco comment: 20+ years smoking Substance Use Topics Alcohol use: Yes Drug use: No ASSESSMENT/PLAN: 1. Acute left ankle pain - ICD9: 719.47, ICD10: M25.572 - XR ANKLE GENERAL 3V AP/LAT/OBL LEFT RESULT: There is a lucency involving the inferior aspect of the lateral malleolus which is suspicious for a nondisplaced fracture. Otherwise, no evidence of fracture or dislocation. Calcaneal spurring is noted. There is mild spurring involving the tibiotalar joint. Soft tissue swelling is noted adjacent to the lateral malleolus. IMPRESSION IMPRESSION: Possible small fracture involving the inferior aspect of the lateral malleolus. Calcaneal spurring. Quality Director: AUGUSTIN Transcribe Date/Time: Jan 23 2022 5:55P Dictated by : RODRIGO GONSALVES MD Patient placed in a walking boot and crutches were given. Try not to put weight on ankle as much as possible. Orthopedic appointment patient instructed to take tylenol and ice and elevate until follow up with orthopedic. Nataly Ryan APRN.DEREK documented in this encounter [facility] 01-15-2022 Miscellaneous Notes Noted. Thank you. Jacqueline Corbin APRN.CNP called pt and all reviewed. She is aware that his is not covered at this time. Although was not at the time she picked/got her insurance. She is paying out of pocket with a good rx card. She may contact her insurance company or the senior accounting associate of [employer] to see if they have any other option. Nothing else is needed from the provider. fyi to provider. Patient has been taking this medication for years. Please clarify what alternatives are covered by her insurance and/or re-submit new PA. Jacqueline Corbin APRN.DEREK PA completed and this is excluded per response. To: Jacqueline Corbin From: [facility] Phone: Fax: [phone] Reference #: [id number] RE: Prior Authorization Request Patient Name: Tia Blanco Patient : 1955 Status of Request: Deny Medication Name: Oblong Thyro Tab 120mg GPI/NDC: [id number] Decision Notes: This medication is a plan exclusion and is not a covered benefit on this patient's plan. Electronic PA requested. Prior Authorization Documentation Prior authorization requested for the following medication: Medication: Oblong Thyroid Provider: Dr Preet Farrar Insurance Company Name: [facility] [employer] Insurance Company Phone number: Patient ID number: [id number] Pharmacy Name: [facility] Telephone number: [phone] documented in this encounter [facility] 12-28-2020 Note [facility] Medicine [facility] Summary Tia Blanco : 1955 Admit date: 12/21/2020 Discharge date: 12/28/2020 Admitting Physician: Mayte Gunter MD Primary Care Physician: No primary care provider on file. Discharge Diagnoses: Large central L1-2 disc herniation Back pain H/o COPD DM with hyperglycemia Hospital Course: This is a 65-year-old female with a past medical history of diabetes, ulcerative colitis, IBS, celiac disease who presented to hospital with large central L1-2 disc herniation. She underwent surgery on 12/21. Her stay was complicated by deconditioning and constipation. She had weakness in her bilateral lower extremities. Initially PT recommended rehab however her insurance denied rehab placement. Finally were able to transition her to snf facility on 12/28/2020. Exam on discharge: BP 124/73 Pulse 89 Temp 96.7 ?F (35.9 ?C) (Temporal) Resp 18 Ht 5' (1.524 m) Wt 180 lb (81.6 kg) SpO2 97% BMI 35.15 kg/m? General appearance: No apparent distress, appears stated age and cooperative. HEENT: Pupils equal, round, and reactive to light. Conjunctivae/corneas clear. Neck: Supple, with full range of motion. No jugular venous distention. Trachea midline. Respiratory: Normal respiratory effort. Clear to auscultation, bilaterally without Rales/Wheezes/Rhonchi. Cardiovascular: Regular rate and rhythm with normal S1/S2 without murmurs, rubs or gallops. Abdomen: Soft, non-tender, non-distended with normal bowel sounds. Musculoskeletal: Weakness in bilateral lower extremities. Sensation intact. Skin: Skin color, texture, turgor normal. No rashes or lesions. Neuro: Weakness bilateral lower extremity intact sensation intact. Symetrical motor and tone. Nl Comprehension, Alert,awake and oriented. NL CN. Symetrical tone and reflexes. Psychiatric: Alert and oriented, thought content appropriate, normal insight Capillary Refill: Brisk,< 3 seconds Peripheral Pulses: +2 palpable, equal bilaterally Patient was seen by the following consultants while admitted to [facility]: Consults: IP CONSULT TO ORTHOPEDIC SURGERY IP CONSULT TO TUBE HEATER IP CONSULT TO TUBE HEATER Significant Diagnostic Studies: Refer to chart Please refer to chart if no studies are shown here Xr Lumbar Spine (2-3 Views) Result Date: 12/21/2020 [id number] ACCESSION EXAM DATE/TIME PROCEDURE ORDERING PROVIDER [id number] 12/21/2020 06:06 EDT CR Spine Lumbosacral 2 MD ROCK ZACHARY or 3 Views CPT code 19289 Reason For Exam (CR Spine Lumbosacral 2 or 3 Views) pre-surgery films Report Examination: Lumbar spine 3 views Indication: pre-surgery films Findings: The vertebral bodies are in gross anatomic alignment. No acute fracture is demonstrated. [id number]-[id number] levocurvature is noted. There are at least moderate degenerative facet changes of the lower lumbar spine. There is at least moderate degenerative disc disease at T12/L1 and L1/L2. Jbck-[id number] calcification of the abdominal aorta is noted. Multiple rounded surgical coils overlie the mid abdomen most suggestive of prior herniorrhaphy. Impression: No acute osseous abnormality. Report Dictated on --- Final --- Dictated: 12/21/2020 8:31 am Dictating Physician: MD FLEMING KRIKOR Signed Date and Time: 12/21/2020 8:33 am Signed by: MD FLEMING KRIKOR Transcribed Date and Time: 12/21/2020 8:31 Xr Chest 1 Vw Result Date: 12/21/2020 Patient Name: TIA BLANCO Diagnostic Radiology ACCESSION EXAM DATE/TIME PROCEDURE ORDERING PROVIDER [id number] 12/21/2020 06:06 EDT CR Chest 1 View Frontal MD ROCK ZACHARY CPT code 35785 Reason For Exam (CR Chest 1 View Frontal) pre-op Report Examination: Portable chest Indication: pre-op Findings: There is no focal consolidation, sizable pleural effusion or pneumothorax. The cardiac silhouette and mediastinum are within normal limits. Mild calcification of the aortic arch is noted. Small osteophytes of the spine are present at multiple levels. Impression: No radiographic evidence of acute cardiopulmonary process. Report Dictated on --- Final --- Dictated: 12/21/2020 8:00 am Dictating Physician: MD FLEMING KRIKOR Signed Date and Time: 12/21/2020 8:26 am Signed by: MD FLEMING KRIKOR Transcribed Date and Time: 12/21/2020 8:00 Discharge Medications: Tia Blanco Home Medication Instructions [place]:[id number] Printed on:12/28/20 1201 Medication Information Cholecalciferol (VITAMIN D3) 1.25 MG (34288 UT) CAPS Take 50,000 capsules by mouth Twice a Week Thursday and Thursday cyclobenzaprine (FLEXERIL) 10 MG tablet Take 1 tablet by mouth 3 times daily as needed for Muscle spasms gabapentin (NEURONTIN) 300 MG capsule Take 1 capsule by mouth 3 times da (more content not included)... [facility] 12-22-2020 Note Procedure Note Name: Tia Blanco Date of : 1955 Age: 65 y.o. Primary Care Physician: No primary care provider on file. Admission Date/Time: 12/21/2020 2:28 AM Date of Procedure: 12/21/2020 Attending Surgeon: Steve Martinez M.D. Oracle Software Engineer: Abisai Wolff PA-C, Treva Henderson MD PGY-2 The first-certified medical assistant was critical to all steps of the operation, including retraction and leg stabilization during exposure and bone preparation, as well as the deep and superficial wound closure. I understand that section 1842(b)(7)(D) of the Social Security Act generally prohibits Medicare physician fee schedule payment for the services of assistants at surgery in teaching hospitals when qualified residents are available to furnish such services. I certify that the services for which payment is claimed were medically necessary and that no qualified resident was available to perform the services. I further understand that these services are subject to post-payment review by the Medicare carrier. Preoperative Diagnosis: 1. L1-2 disc herniation 2. Severe lumbar stenosis 3. Bilateral lower extremity weakness 4. Low back pain 5. Lumbar radiculopathy Postoperative Diagnosis: Same as above. Procedure Performed: 1. Transpedicular (transfacet) approach with decompression of the spinal cord, cauda equina, and/or nerve roots - bilateral L1-2 2. Arthrodesis lateral extracavitary technique 3. Posterior lumbar fusion L1-2 4. Posterior lumbar instrumentation L1-2 5. Use of autograft 6. Use of allograft 7. Use of intraoperative computer assisted navigation 8. Use of intraoperative neurophysiologic monitoring Anesthesia: GETA Medications: 2 grams of Ancef EBL: 250cc UOP: See anesthesia record Fluids: Crystalloid Drains: 1 hemovac drain Findings: 1. Large disc herniation at L1-2 causing severe spinal stenosis Indications for Procedure: 65 yo F who presented as a transfer from [facility] with low back pain and bilateral LE weakness. Her CT, XR and MRI were reviewed and shows a large disc herniation at L1-2 causing severe stenosis. We discussed treatment options. Because of the herniation and the weakness we recommended bilateral transfacet decompression with L1-2 posterior lumbar instrumented fusion and possible interbody cage. We discussed the risks of surgery in detail. We emphasized the risk of spine cord/nerve injury as the disc herniation is near the level of the conus. We also discussed the risk of continued weakness/pain/numbness/tingling even despite surgery. We discussed the risk of wound infection as well with her diabetes and stressed the importance of glycemic control. She also has degenerative changes at L4-5 and we discussed that she may need treatment in the future at that level or other levels but we would treat the acute disc herniation for now. She understands this and agreed with the plan. After our discussion she wishes to proceed. Written informed consent was obtained. Consent: I have discussed with Tia Blanco the benefits, risks, and alternatives of surgical treatment. I have explained that nonoperative management can be continued and is an option. The risks of surgery include, among others, bleeding, infection, blood vessel or nerve injury, spinal fluid leak, the need for further surgery, and the failure to improve. Spine surgery inherently has risks that could result in neurological injury including weakness, numbness, pain, or paralysis. There is always the risk of further surgery being needed due to further degeneration of the spine or due to conditions such as fracture or instrumentation failure. Medical complications including heart attack, stroke, anesthetic complications, bowel or bladder dysfunction, pneumonia, ileus, blood clots involving the legs (DVT) or going to the lungs (PE), blindness, or can occur following spinal surgery. We take steps to reduce the risks but they still occur. I also described in detail that improvement was not guaranteed. The patient expressed understanding of these risks and asked that we proceed with surgery. I described the surgery in layman's terms, and gave ample opportunity for questions, which were answered to the best of my ability. Procedure: Patient was marked, examined, and consent was reviewed and signed in the pre-operative area. Patient was then brought to the operating room. After intubation and doll placement intraoperative neurophysiologic monitoring leads were placed. Pre-positional SSEP and MEP signals were present in all 4 extremities. The patient was positioned prone on the OR table. All bony prominences were well padded. The patient was administered a dose of preoperative antibiotics within 30 minutes of the incision and had SCDs for intraoperative DVT prophylaxis. Post positional SSEP and MEP signals remained at baseline. The patient was prepped and drape (more content not included)... [facility] History of Past i llness Narrative Problem Noted Date Resolved Date Controlled type 2 diabetes m ellitus without complication, without long-term current use of insulin 10/12/2018 12/08/2022 Abdominal pain, right upper quadrant 02/16/2007 12/08/2022 Diabetes mellitus type 2, controlled, without co mplications 07/13/2006 12/08/2022 Overview: 2005 documented as of this encounter (statuses as of 12/10/2022) [facility] History of Past illness Narrative* Problem Noted Date Resolved Date Controlled type 2 diabetes m ellitus without complication, without long-term current use of insulin 10/12/2018 12/08/2022 Abdominal pain, right upper quadrant 02/16/2007 12/08/2022 Diabetes mellitus type 2, controlled, without co mplications 07/13/2006 12/08/2022 Overview: 2005 documented as of this encounter (statuses as of 12/15/2022) [facility] History of Past illness Narrative* Problem Noted Date Resolved Date Controlled type 2 diabetes m ellitus without complication, without long-term current use of insulin 10/12/2018 12/08/2022 Abdominal pain, right upper quadrant 02/16/2007 12/08/2022 Diabetes mellitus type 2, controlled, without co mplications 07/13/2006 12/08/2022 Overview: 2005 documented as of this encounter (statuses as of 12/24/2022) [facility] History of Past illness Narrative* Problem Noted Date Resolved Date Controlled type 2 diabetes m ellitus without complication, without long-term current use of insulin 10/12/2018 12/08/2022 Abdominal pain, right upper quadrant 02/16/2007 12/08/2022 Diabetes mellitus type 2, controlled, without co mplications 07/13/2006 12/08/2022 Overview: 2005 documented as of this encounter (statuses as of 02/03/2023) [facility] History of Past illness Narrative* Problem Noted Date Resolved Date Controlled type 2 diabetes m ellitus without complication, without long-term current use of insulin 10/12/2018 12/08/2022 Abdominal pain, right upper quadrant 02/16/2007 12/08/2022 Diabetes mellitus type 2, controlled, without co mplications 07/13/2006 12/08/2022 Overview: 2005 documented as of this encounter (statuses as of 03/04/2023) [facility] History of Past illness Narrative* Problem Noted Date Resolved Date Controlled type 2 diabetes m ellitus without complication, without long-term current use of insulin 10/12/2018 12/08/2022 Abdominal pain, right upper quadrant 02/16/2007 12/08/2022 Diabetes mellitus type 2, controlled, without co mplications 07/13/2006 12/08/2022 Overview: 2005 documented as of this encounter (statuses as of 03/18/2023) [facility] History of Past illness Narrative* Problem Noted Date Resolved Date Controlled type 2 diabetes m ellitus without complication, without long-term current use of insulin 10/12/2018 12/08/2022 Abdominal pain, right upper quadrant 02/16/2007 12/08/2022 Diabetes mellitus type 2, controlled, without co mplications 07/13/2006 12/08/2022 Overview: 2005 documented as of this encounter (statuses as of 03/25/2023) [facility] History of Past illness Narrative* Problem Noted Date Diagnosed Date Resolved Date Controlled type 2 diabetes m ellitus without complication, without long-term current use of insulin 10/12/2018 12/08/2022 Abdominal pain, right upper quadrant 02/16/2007 12/08/2022 Diabetes mellitus type 2, co ntrolled, without complications 07/13/2006 12/08/2022 Overview: 2005 documented as of this encounter (statuses as of 04/30/2023) [facility] History of Past illness Narrative* Problem Noted Date Diagnosed Date Resolved Date Controlled type 2 diabetes m ellitus without complication, without long-term current use of insulin 10/12/2018 12/08/2022 Abdominal pain, right upper quadrant 02/16/2007 12/08/2022 Diabetes mellitus type 2, co ntrolled, without complications 07/13/2006 12/08/2022 Overview: 2005 documented as of this encounter (statuses as of 05/05/2023) [place] [address] History of Past illness Narrative* Problem Noted Date Diagnosed Date Resolved Date Controlled type 2 diabetes m ellitus without complication, without long-term current use of insulin 10/12/2018 12/08/2022 Abdominal pain, right upper quadrant 02/16/2007 12/08/2022 Diabetes mellitus type 2, co ntrolled, without complications 07/13/2006 12/08/2022 Overview: 2005 documented as of this encounter (statuses as of 05/18/2023) [facility] History of Past illness Narrative* Problem Noted Date Diagnosed Date Resolved Date Controlled type 2 diabetes m ellitus without complication, without long-term current use of insulin 10/12/2018 12/08/2022 Abdominal pain, right upper quadrant 02/16/2007 12/08/2022 Diabetes mellitus type 2, co ntrolled, without complications 07/13/2006 12/08/2022 Overview: 2005 documented as of this encounter (statuses as of 06/20/2023) [facility] History of Past illness Narrative* Problem Noted Date Diagnosed Date Resolved Date Controlled type 2 diabetes m ellitus without complication, without long-term current use of insulin 10/12/2018 12/08/2022 Abdominal pain, right upper quadrant 02/16/2007 12/08/2022 Diabetes mellitus type 2, co ntrolled, without complications 07/13/2006 12/08/2022 Overview: 2005 documented as of this encounter (statuses as of 06/26/2023) [facility] History of Past illness Narrative* Problem Noted Date Diagnosed Date Resolved Date Controlled type 2 diabetes m ellitus without complication, without long-term current use of insulin 10/12/2018 12/08/2022 Abdominal pain, right upper quadrant 02/16/2007 12/08/2022 Diabetes mellitus type 2, co ntrolled, without complications 07/13/2006 12/08/2022 Overview: 2005 documented as of this encounter (statuses as of 07/04/2023) [facility] History of Past illness Narrative* Problem Noted Date Diagnosed Date Resolved Date Controlled type 2 diabetes m ellitus without complication, without long-term current use of insulin 10/12/2018 12/08/2022 Abdominal pain, right upper quadrant 02/16/2007 12/08/2022 Diabetes mellitus type 2, co ntrolled, without complications 07/13/2006 12/08/2022 Overview: 2005 documented as of this encounter (statuses as of 07/21/2023) [facility] History of Past illness Narrative* Problem Noted Date Diagnosed Date Resolved Date Controlled type 2 diabetes m ellitus without complication, without long-term current use of insulin 10/12/2018 12/08/2022 Abdominal pain, right upper quadrant 02/16/2007 12/08/2022 Diabetes mellitus type 2, co ntrolled, without complications 07/13/2006 12/08/2022 Overview: 2005 documented as of this encounter (statuses as of 07/24/2023) [facility] History of Past illness Narrative* Problem Noted Date Diagnosed Date Resolved Date Controlled type 2 diabetes m ellitus without complication, without long-term current use of insulin 10/12/2018 12/08/2022 Abdominal pain, right upper quadrant 02/16/2007 12/08/2022 Diabetes mellitus type 2, co ntrolled, without complications 07/13/2006 12/08/2022 Overview: 2005 documented as of this encounter (statuses as of 07/28/2023) [facility] History of Past illness Narrative* Problem Noted Date Diagnosed Date Resolved Date Controlled type 2 diabetes m ellitus without complication, without long-term current use of insulin 10/12/2018 12/08/2022 Abdominal pain, right upper quadrant 02/16/2007 12/08/2022 Diabetes mellitus type 2, co ntrolled, without complications 07/13/2006 12/08/2022 Overview: 2005 documented as of this encounter (statuses as of 07/29/2023) [facility] History of Past illness Narrative* Problem Noted Date Diagnosed Date Resolved Date Controlled type 2 diabetes m ellitus without complication, without long-term current use of insulin 10/12/2018 12/08/2022 Abdominal pain, right upper quadrant 02/16/2007 12/08/2022 Diabetes mellitus type 2, co ntrolled, without complications 07/13/2006 12/08/2022 Overview: 2005 documented as of this encounter (statuses as of 08/01/2023) [facility] History of Past illness Narrative* Problem Noted Date Diagnosed Date Resolved Date Controlled type 2 diabetes m ellitus without complication, without long-term current use of insulin 10/12/2018 12/08/2022 Abdominal pain, right upper quadrant 02/16/2007 12/08/2022 Diabetes mellitus type 2, co ntrolled, without complications 07/13/2006 12/08/2022 Overview: 2005 documented as of this encounter (statuses as of 08/10/2023) [facility] History of Past illness Narrative* Problem Noted Date Diagnosed Date Resolved Date Controlled type 2 diabetes m ellitus without complication, without long-term current use of insulin 10/12/2018 12/08/2022 Abdominal pain, right upper quadrant 02/16/2007 12/08/2022 Diabetes mellitus type 2, co ntrolled, without complications 07/13/2006 12/08/2022 Overview: 2005 documented as of this encounter (statuses as of 10/29/2023) [facility] History of Past illness Narrative* Problem Noted Date Diagnosed Date Resolved Date Controlled type 2 diabetes m ellitus without complication, without long-term current use of insulin 10/12/2018 12/08/2022 Abdominal pain, right upper quadrant 02/16/2007 12/08/2022 Diabetes mellitus type 2, co ntrolled, without complications 07/13/2006 12/08/2022 Overview: 2005 documented as of this encounter (statuses as of 11/13/2023) [facility] History of Past illness Narrative* Problem Noted Date Diagnosed Date Resolved Date Controlled type 2 diabetes m ellitus without complication, without long-term current use of insulin 10/12/2018 12/08/2022 Abdominal pain, right upper quadrant 02/16/2007 12/08/2022 Diabetes mellitus type 2, co ntrolled, without complications 07/13/2006 12/08/2022 Overview: 2005 documented as of this encounter (statuses as of 11/13/2023) [facility] History of Past illness Narrative* Problem Noted Date Diagnosed Date Resolved Date Controlled type 2 diabetes m ellitus without complication, without long-term current use of insulin 10/12/2018 12/08/2022 Abdominal pain, right upper quadrant 02/16/2007 12/08/2022 Diabetes mellitus type 2, co ntrolled, without complications 07/13/2006 12/08/2022 Overview: 2005 documented as of this encounter (statuses as of 11/18/2023) [facility] History of Past illness Narrative* Problem Noted Date Diagnosed Date Resolved Date Controlled type 2 diabetes m ellitus without complication, without long-term current use of insulin 10/12/2018 12/08/2022 Abdominal pain, right upper quadrant 02/16/2007 12/08/2022 Diabetes mellitus type 2, co ntrolled, without complications 07/13/2006 12/08/2022 Overview: 2005 documented as of this encounter (statuses as of 11/19/2023) [facility] History of Past illness Narrative* Problem Noted Date Diagnosed Date Resolved Date Controlled type 2 diabetes m ellitus without complication, without long-term current use of insulin 10/12/2018 12/08/2022 Abdominal pain, right upper quadrant 02/16/2007 12/08/2022 Diabetes mellitus type 2, co ntrolled, without complications 07/13/2006 12/08/2022 Overview: 2005 documented as of this encounter (statuses as of 11/19/2023) [facility] History of Past illness Narrative* Problem Noted Date Diagnosed Date Resolved Date Controlled type 2 diabetes m ellitus without complication, without long-term current use of insulin 10/12/2018 12/08/2022 Abdominal pain, right upper quadrant 02/16/2007 12/08/2022 Diabetes mellitus type 2, co ntrolled, without complications 07/13/2006 12/08/2022 Overview: 2005 documented as of this encounter (statuses as of 11/25/2023) [facility] History of Past illness Narrative* Problem Noted Date Diagnosed Date Resolved Date Controlled type 2 diabetes m ellitus without complication, without long-term current use of insulin 10/12/2018 12/08/2022 Abdominal pain, right upper quadrant 02/16/2007 12/08/2022 Diabetes mellitus type 2, co ntrolled, without complications 07/13/2006 12/08/2022 Overview: 2005 documented as of this encounter (statuses as of 12/09/2023) [facility] History of Past illness Narrative* Problem Noted Date Diagnosed Date Resolved Date Controlled type 2 diabetes m ellitus without complication, without long-term current use of insulin 10/12/2018 12/08/2022 Abdominal pain, right upper quadrant 02/16/2007 12/08/2022 Diabetes mellitus type 2, co ntrolled, without complications 07/13/2006 12/08/2022 Overview: 2005 documented as of this encounter (statuses as of 12/10/2023) [facility] History of Past illness Narrative* Problem Noted Date Diagnosed Date Resolved Date Controlled type 2 diabetes m ellitus without complication, without long-term current use of insulin 10/12/2018 12/08/2022 Abdominal pain, right upper quadrant 02/16/2007 12/08/2022 Diabetes mellitus type 2, co ntrolled, without complications 07/13/2006 12/08/2022 Overview: 2005 documented as of this encounter (statuses as of 01/02/2024) [facility] History of Past illness Narrative* Problem Noted Date Diagnosed Date Resolved Date Controlled type 2 diabetes m ellitus without complication, without long-term current use of insulin 10/12/2018 12/08/2022 Abdominal pain, right upper quadrant 02/16/2007 12/08/2022 Diabetes mellitus type 2, co ntrolled, without complications 07/13/2006 12/08/2022 Overview: 2005 documented as of this encounter (statuses as of 01/02/2024) [facility] History of Past illness Narrative* Problem Noted Date Diagnosed Date Resolved Date Controlled type 2 diabetes m ellitus without complication, without long-term current use of insulin 10/12/2018 12/08/2022 Abdominal pain, right upper quadrant 02/16/2007 12/08/2022 Diabetes mellitus type 2, co ntrolled, without complications 07/13/2006 12/08/2022 Overview: 2005 documented as of this encounter (statuses as of 01/03/2024) [facility] History of Past illness Narrative* Problem Noted Date Diagnosed Date Resolved Date Controlled type 2 diabetes m ellitus without complication, without long-term current use of insulin 10/12/2018 12/08/2022 Abdominal pain, right upper quadrant 02/16/2007 12/08/2022 Diabetes mellitus type 2, co ntrolled, without complications 07/13/2006 12/08/2022 Overview: 2005 documented as of this encounter (statuses as of 01/06/2024) [facility] History of Past illness Narrative* Problem Noted Date Diagnosed Date Resolved Date Controlled type 2 diabetes m ellitus without complication, without long-term current use of insulin 10/12/2018 12/08/2022 Abdominal pain, right upper quadrant 02/16/2007 12/08/2022 Diabetes mellitus type 2, co ntrolled, without complications 07/13/2006 12/08/2022 Overview: 2005 documented as of this encounter (statuses as of 01/06/2024) [facility] History of Past illness Narrative* Problem Noted Date Diagnosed Date Resolved Date Controlled type 2 diabetes m ellitus without complication, without long-term current use of insulin 10/12/2018 12/08/2022 Abdominal pain, right upper quadrant 02/16/2007 12/08/2022 Diabetes mellitus type 2, co ntrolled, without complications 07/13/2006 12/08/2022 Overview: 2005 documented as of this encounter (statuses as of 01/07/2024) [facility] History of Past illness Narrative* Problem Noted Date Diagnosed Date Resolved Date Controlled type 2 diabetes m ellitus without complication, without long-term current use of insulin 10/12/2018 12/08/2022 Abdominal pain, right upper quadrant 02/16/2007 12/08/2022 Diabetes mellitus type 2, co ntrolled, without complications 07/13/2006 12/08/2022 Overview: 2005 documented as of this encounter (statuses as of 01/14/2024) [facility] Plan note No data available for this section [facility] Evaluation note* Diagnosis Acute left ankle pain- Primary documented in this encounter [facility] note* Diagnosis Closed fracture of distal end of left fibula, unspecified fracture morphology, initial encounter- Primary [facility] Diagnosis Essential hypertension, benign- Primary Acquired hypothyroidism Unspecified hypothyroidism Controlled type 2 diabetes mellitus without complication, without long-term current use of insulin (HCC) documented [facility] this encounter [facility]* Diagnosis Closed fracture of distal end of left fibula, unspecified fracture morphology, initial encounter [facility] this [facility]* Diagnosis Uncontrolled hypertension- Primary Unspecified essential hypertension Palpitations Uncontrolled type 2 diabetes mellitus with hyperglycemia (HCC) Essential hypertension, benign Acquired hypothyroidism Unspecified hypothyroidism documented in this [facility]* Diagnosis Uncontrolled hypertension- Primary Unspecified essential hypertension [facility]* Diagnosis Closed fracture of distal end of left fibula, unspecified fracture morphology, initial encounter [facility]* Diagnosis Encounter for screening mammogram for breast cancer documented [facility] this [facility]* Diagnosis Vitamin D deficiency Unspecified vitamin D deficiency documented in this encounter [facility] note* Diagnosis Vitamin B12 deficiency Other B-complex deficiencies documented in this encounter [facility]* Diagnosis Acquired hypothyroidism Unspecified hypothyroidism documented in this encounter [facility]* Diagnosis Essential hypertension, benign [facility] Diagnosis Acquired hypothyroidism- Primary Unspecified hypothyroidism Vitamin D deficiency Unspecified vitamin D deficiency Uncontrolled type 2 diabetes mellitus with hyperglycemia (HCC) Dyslipidemia Other and unspecified hyperlipidemia Iron deficiency anemia, unspecified iron deficiency anemia type documented in this encounter [facility]* Diagnosis Acquired hypothyroidism Unspecified hypothyroidism Vitamin B12 deficiency Other B-complex deficiencies [facility]* Diagnosis Ischemic stroke without residual deficits (HCC)- Primary Essential hypertension, benign Uncontrolled type 2 diabetes mellitus with hyperglycemia (HCC) Dyslipidemia Other and unspecified hyperlipidemia Encounter for smoking cessation counseling Counseling on substance use and abuse Controlled type 2 diabetes mellitus without complication, without long-term current use of insulin (HCC) documented in this encounter [facility] note* Diagnosis Uncontrolled type 2 diabetes mellitus with hyperglycemia (HCC)- Primary Ischemic stroke without residual deficits (HCC) Dyslipidemia Other and unspecified hyperlipidemia Acquired hypothyroidism Unspecified hypothyroidism Vitamin D deficiency Unspecified vitamin D deficiency Vitamin B12 deficiency Other B-complex deficiencies History of tobacco abuse Personal history of tobacco use, presenting hazards to health [facility] Diagnosis Vitamin B12 deficiency Other B-complex deficiencies [facility] Diagnosis Acquired hypothyroidism Unspecified hypothyroidism Vitamin D deficiency Unspecified vitamin D deficiency [facility] Diagnosis Uncontrolled type 2 diabetes mellitus with hyperglycemia (HCC)- Primary Acquired hypothyroidism Unspecified hypothyroidism Dyslipidemia Other and unspecified hyperlipidemia History of tobacco abuse Personal history of tobacco use, presenting hazards to health Essential hypertension, benign [facility] Diagnosis Uncontrolled type 2 diabetes mellitus with hyperglycemia (HCC) [facility] Diagnosis Uncontrolled type 2 diabetes mellitus with hyperglycemia (HCC) [facility] Diagnosis Uncontrolled type 2 diabetes mellitus with hyperglycemia (HCC)- Primary Acquired hypothyroidism Unspecified hypothyroidism Vitamin B12 deficiency Other B-complex deficiencies [facility] this encounter [facility]* Diagnosis Nausea and vomiting, unspecified vomiting type- Primary Hyperglycemia Other abnormal glucose Controlled type 2 diabetes mellitus without complication, without long-term current use of insulin (HCC) [facility] this encounter [facility]* Diagnosis Uncontrolled type 2 diabetes mellitus with hyperglycemia (HCC)- Primary Acquired hypothyroidism Unspecified hypothyroidism Essential hypertension, benign Renal artery stenosis (HCC) Atherosclerosis of renal artery documented in this [facility] Diagnosis Uncontrolled type 2 diabetes mellitus with hyperglycemia (HCC) [facility] Diagnosis Hypokalemia- Primary Hypopotassemia [facility] this [facility] Diagnosis Essential hypertension, benign- Primary [facility] Diagnosis Essential hypertension, benign- Primary Acquired hypothyroidism Unspecified hypothyroidism Controlled type 2 diabetes mellitus without complication, with long-term current use of insulin (HCC) Uncontrolled type 2 diabetes mellitus with hyperglycemia (HCC) [facility] Diagnosis Essential hypertension, benign- Primary Situational anxiety Other anxiety states [facility] Diagnosis Ischemic stroke without residual deficits (HCC) [facility] Diagnosis Uncontrolled type 2 diabetes mellitus with hyperglycemia (HCC)- Primary Nonrheumatic aortic valve stenosis Aortic valve disorders Hyperlipidemia, mixed Mixed hyperlipidemia Disease of spinal cord (HCC) Unspecified disease of spinal cord Renal artery stenosis (HCC) Atherosclerosis of renal artery Other ulcerative colitis without complications (HCC) 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, without long-term current use of insulin (HCC) Acquired hypothyroidism Unspecified hypothyroidism Essential hypertension, benign Situational anxiety Other anxiety states [facility] Diagnosis Vaginal itching- Primary Pruritus of genital organs Dysuria Glucosuria Glycosuria [facility] Diagnosis BV (bacterial vaginosis)- Primary Vaginitis and vulvovaginitis, unspecified [facility] Diagnosis Acquired hypothyroidism Unspecified hypothyroidism Uncontrolled type 2 diabetes mellitus with hyperglycemia (HCC) [facility] Diagnosis Uncontrolled type 2 diabetes mellitus with hyperglycemia (HCC)- Primary Situational anxiety Other anxiety states [facility] Diagnosis Uncontrolled type 2 diabetes mellitus with hyperglycemia (HCC)- Primary Vaginal yeast infection Candidiasis of vulva and vagina Poor sleep [facility] this [facility] Diagnosis Vitamin D deficiency Unspecified vitamin D deficiency [facility] Diagnosis Encounter for screening mammogram for breast cancer [facility] Diagnosis Gastroenteritis- Primary Other and unspecified noninfectious gastroenteritis and colitis Uncontrolled type 2 diabetes mellitus with hyperglycemia (HCC) Acquired hypothyroidism Unspecified hypothyroidism Obesity, Class I, BMI 30-34.9 Obesity, unspecified Acute dehydration Situational anxiety Other anxiety states documented in this encounter [facility] note* Diagnosis Type 2 diabetes mellitus with other circulatory complication, with long-term current use of insulin (HCC)- Primary documented in this encounter [facility] note* Diagnosis Ischemic stroke without residual deficits (HCC) documented in this encounter [facility] note* Diagnosis Thickened endometrium- Primary Nonspecific (abnormal) findings on radiological and other examination of genitourinary organs LLQ pain Abdominal pain, left lower quadrant documented in this encounter [facility] note* Diagnosis Uncontrolled type 2 diabetes mellitus with hyperglycemia (HCC)- Primary Acquired hypothyroidism Unspecified hypothyroidism Essential hypertension, benign Vitamin B12 deficiency Other B-complex deficiencies Hyperlipidemia, mixed Mixed hyperlipidemia Tobacco use disorder Vitamin D deficiency Unspecified vitamin D deficiency documented in this encounter [facility] note* Diagnosis Acute left ankle pain documented in this encounter [facility] for referral (narrative)* Diagnostic Procedure Only (Urgent) - Closed Specialty Diagnoses / Procedures Referred By Contac t Referred To Contact XR IMAGING Diagnoses Acute left ankle pain Procedures XR ANKLE GENERAL 3V AP/LAT/OBL LEFT RADEX ANKLE COMPLETE MINIMUM 3 VIEWS Nataly Ryan APRN.CNP [address] [place] [address] Xr Imaging Referral ID Status Reason Start Date Expiration Date V isits Requested Visits Authorized [id number] Closed Auto-Generate d Referral 01/23/2022 09/27/2022 1 1 [facility] for referral (narrative)* Diagnostic Procedure Only (Routine) - Authorized Specialty Diagnoses / Procedures Referred By Contac t Referred To Contact XR IMAGING Diagnoses Closed fracture of distal end of left fibula, unspecified fracture morphology, initial encounter Procedures XR ANKLE GENERAL 3V AP/LAT/OBL LEFT RADEX ANKLE COMPLETE MINIMUM [address] [place] [address] Xr Imaging Referral ID Status Reason Start Date Expiration Date Visits Requested Visits Authorized [id number] Authorized Auto-Generat ed Referral 02/10/2022 09/27/2022 1 1 [facility] for referral (narrative)* Diagnostic Procedure Only (Routine) - Closed Specialty Diagnoses / Procedures Referred By Contac t Referred To Contact XR IMAGING Diagnoses Closed fracture of distal end of left fibula, unspecified fracture morphology, initial encounter Procedures XR ANKLE GENERAL 3V AP/LAT/OBL LEFT RADEX ANKLE COMPLETE MINIMUM 3 VIEWS Steve Rodriguez [address] [place] [address] Xr Imaging Referral ID Status Reason Start Date Expiration Date V isits Requested Visits Authorized [id number] Closed Auto-Generate d Referral 02/10/2022 09/27/2022 1 1 [facility] for referral (narrative)* Outpatient Procedure (Routine) - Open Specialty Diagnoses / Procedures Referred By Contac t Referred To [facility] Diagnoses Uncontrolled hypertension Palpitations Procedures US RENAL ARTERY ZULMA VAS LAB DUP-SCAN ARTL SKYLAR ABDL/PEL/SCROT&/RPR ORGN COM Preet Farrar DO [address] [place] [address] [facility] [place] [address] [place] [id number] Referral ID Status Reason Start Date Expiration Date V isits Requested Visits Authorized [id number] Open Auto-Generate d Referral 02/19/2022 02/19/2023 1 1 * Outpatient Procedure (Routine) - Closed Specialty Diagnoses / Procedures Referred By Contac t Referred To Contact [facility] [place] Diagnoses Uncontrolled hypertension Palpitations Procedures ECG COMPLETE ECG ROUTINE ECG W/LEAST 12 LDS W/I&R Preet Farrar DO [address] [place] [address] [facility] [place] [address] [place] [address] Referral ID Status Reason Start Date Expiration Date V isits Requested Visits Authorized [id number] Closed Auto-Generate d Referral 02/19/2022 02/19/2023 1 1 * Outpatient Procedure (Routine) - Authorized Specialty Diagnoses / Procedures Referred By Contac t Referred To Contact [facility] [place] Diagnoses Uncontrolled hypertension Palpitations Procedures ECHO ECHO TTHRC R-T 2D W/WOM-MODE COMPL SPEC&COLR D Preet Farrar, DO [address] [place] [address] [address] Referral ID Status Reason Start Date Expiration Date Visits Requested Visits Authorized [id number] Authorized Auto-Generat ed Referral 02/19/2022 02/19/2023 1 1 * Outpatient Procedure (Routine) - Open Specialty Diagnoses / Procedures Referred By Contac t Referred To Contact [facility] Diagnoses Uncontrolled hypertension Palpitations Procedures US CAROTID ARTERIES ZULMA VAS LAB DUPLEX SCAN EXTRACRANIAL ART COMPL BI STUDY Preet Farrar, DO [address] [place] [address] [address] Referral ID Status Reason Start Date Expiration Date V isits Requested Visits Authorized [id number] Open Auto-Generate d Referral 02/19/2022 02/19/2023 1 1 [facility] for referral (narrative)* Diagnostic Procedure Only (Routine) - Closed Specialty Diagnoses / Procedures Referred By Contac t Referred To Contact XR IMAGING Diagnoses Closed fracture of distal end of left fibula, unspecified fracture morphology, initial encounter Procedures XR ANKLE GENERAL 3V AP/LAT/OBL LEFT RADEX ANKLE COMPLETE MINIMUM [address] [place] [address] Xr Imaging Referral ID Status Reason Start Date Expiration Date V isits Requested Visits Authorized [id number] Closed Auto-Generate d Referral 02/28/2022 03/30/2023 1 1 [facility] for referral (narrative)* Diagnostic Procedure Only (Routine) - Pending Review Specialty Diagnoses / Procedures Referred By Contac t Referred To Contact [facility] Diagnoses Encounter for screening mammogram for breast cancer Procedures LAURO SCREENING SCREENING MAMMOGRAPHY BI 2-VIEW BREAST INC CAD Preet Farrar, DO [address] [place] [address] [facility] [address] [place] [address] Referral ID Status Reason Start Date Expiration Date Visits Requested Visits Authorized [id number] Pending Review Auto-Generat ed Referral 03/26/2022 04/25/2023 1 1 [facility] for referral (narrative)* Diagnostic Procedure Only (Routine) - Pending Review Specialty Diagnoses / Procedures Referred By Contac t Referred To Contact [facility] IM[facility] Diagnoses Encounter for screening mammogram for breast cancer Procedures LAURO SCREENING SCREENING MAMMOGRAPHY BI 2-VIEW BREAST INC CAD Preet Farrar, DO [address] [place] [address] [facility] [address] [place] [address] Referral ID Status Reason Start Date Expiration Date Visits Requested Visits Authorized [id number] Pending Review Auto-Generat ed Referral 02/03/2024 03/04/2025 1 1 T [facility] for referral (narrative)* Diagnostic Procedure Only (Urgent) - Closed Specialty Diagnoses / Procedures Referred By Contac t Referred To Contact XR IMAGING Diagnoses Acute left ankle pain Procedures XR ANKLE GENERAL 3V AP/LAT/OBL LEFT RADEX ANKLE COMPLETE MINIMUM 3 VIEWS Nataly Ryan APRN.TECHNICAL COMMUNICATOR [address] [place] [address] [place] [address] Referral ID Status Reason Start Date Expiration Date V isits Requested Visits Authorized [id number] Closed Auto-Generate d Referral 01/23/2022 09/27/2022 1 1 [facility] for visit Narrative* Diagnostic Procedure Only (Routine) - Closed Specialty Diagnoses / Procedures Referred By Contac t Referred To Contact XR IMAGING Diagnoses Closed fracture of distal end of left fibula, unspecified fracture morphology, initial encounter Procedures XR ANKLE GENERAL 3V AP/LAT/OBL LEFT RADEX ANKLE COMPLETE MINIMUM 3 VIEWS Steve Rodriguez [address] [place] [address] Xr Imaging Referral ID Status Reason Start Date Expiration Date V isits Requested Visits Authorized [id number] Closed Auto-Generate d Referral 02/10/2022 09/27/2022 1 1 [facility] for visit Narrative* Diagnostic Procedure Only (Routine) - Closed Specialty Diagnoses / Procedures Referred By Contac t Referred To Contact XR IMAGING Diagnoses Closed fracture of distal end of left fibula, unspecified fracture morphology, initial encounter Procedures XR ANKLE GENERAL 3V AP/LAT/OBL LEFT RADEX ANKLE COMPLETE MINIMUM 3 VIEWS Steve Rodriguez [address] [place] [address] Xr Imaging Referral ID Status Reason Start Date Expiration Date V isits Requested Visits Authorized [id number] Closed Auto-Generate d Referral 02/28/2022 09/27/2022 1 1 [facility] for visit Narrative* Diagnostic Procedure Only (Urgent) - Closed Specialty Diagnoses / Procedures Referred By Contac t Referred To Contact XR IMAGING Diagnoses Acute left ankle pain Procedures XR ANKLE GENERAL 3V AP/LAT/OBL LEFT RADEX ANKLE COMPLETE MINIMUM 3 VIEWS Nataly Ryan APRN.TECHNICAL COMMUNICATOR [address] [place] [address] [place] [address] Referral ID Status Reason Start Date Expiration Date V isits Requested Visits Authorized [id number] Closed Auto-Generate d Referral 01/23/2022 09/27/2022 1 1 [facility] Discharge Instructions * Discharge Instr - DOMINIK* Valarie Aguilar RN - 12/26/2020 1:39 PM EDT Continuity of Care Form Patient Name: Tia Blanco : 1955 Admit date: 12/21/2020 Discharge date: 12/28/20 Code Status Order: Full Code Advance Directives: Advance Care Flowsheet Documentation Date/Time Healthcare Directive Type of Healthcare Directive Copy in Chart Healthcare Agent Appointed Healthcare Agent's Name Healthcare Agent's Phone Number 12/21/20 0415 No, patient does not have an advance directive for healthcare treatment -- -- -- -- -- Admitting Physician: Mayte Gunter MD PCP: No primary care provider on file. Discharging Nurse: Valarie Discharging Hospital Unit/Room#: 6134/[id number] Discharging Unit Emergency Contact: Extended Emergency Contact Information Primary Emergency Contact: Alicia Blanco Mobile Relation: Child Past Surgical History: Past Surgical History: Procedure Laterality Date CHOLECYSTECTOMY HERNIA REPAIR OTHER SURGICAL HISTORY 12/21/2020 L1-2 PSDF & discectomy TONSILLECTOMY Immunization History: There is no immunization history on file for this patient. 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 Isolation/Infection: Isolation No Isolation Patient Infection Status None to display Nurse Assessment: Last Vital Signs: BP 132/72 Pulse 78 Temp 97.2 F (36.2 C) (Temporal) Resp 16 Ht 5' (1.524 m) Wt 180 lb (81.6 kg) SpO2 97% BMI 35.15 kg/m Last documented pain score (0-10 scale): Pain Level: 5 Last Weight: Wt Readings from Last 1 Encounters: 12/21/20 180 lb (81.6 kg) Mental Status: oriented IV Access: - None Nursing Mobility/ADLs: Walking Dependent Transfer Dependent Bathing Assisted Dressing Assisted Toileting Assisted Feeding Independent Reduction Furnace Operator Helper Independent Med Delivery whole Wound Care Documentation and Therapy: Elimination: Continence: Bowel: Yes Bladder: Yes Urinary Catheter: None Colostomy/Ileostomy/Ileal Conduit: No Date of Last BM: 12/27/20 Intake/Output Summary (Last 24 hours) at 12/26/2020 1339 Last data filed at 12/26/2020 0831 Gross per 24 hour Intake 2300 ml Output 1100 ml Net 1200 ml I/O last 3 completed shifts: In: 2100 [P.O.:2100] Out: 1300 [Urine:1300] Safety Concerns: At Risk for Falls Impairments/Disabilities: None Nutrition Therapy: Current Nutrition Therapy: - Oral Diet: General Routes of Feeding: Oral Liquids: No Restrictions Daily Fluid Restriction: no Last Modified Barium Swallow with Video (Video Swallowing Test): not done Treatments at the Time of Hospital Discharge: Respiratory Treatments: NA Oxygen Therapy: is not on home oxygen therapy. Ventilator: - No ventilator support Rehab Therapies: Physical Therapy and Occupational Therapy Weight Bearing Status/Restrictions: No weight bearing restirctions Other Medical Equipment (for information only, NOT a DME order): wheelchair and hospital bed Other Treatments: NA Patient's personal belongings (please select all that are sent with patient): None RN SIGNATURE: CASE MANAGEMENT/SOCIAL WORK SECTION Inpatient Status Date: 12/21/20 Readmission Risk Assessment Score: Readmission Risk Risk of Unplanned Readmission: 9 Discharging to Facility/ Agency Name: [facility] Address: [address] [place] [address] Dialysis Facility (if applicable) Name: Address: Dialysis Schedule: Phone: Fax: Optical Mechanic/Cloth Bolt Bander signature: ICIAN SECTION Prognosis: Fair Condition at Discharge: Stable Rehab Potential (if transferring to Rehab): Good Recommended Labs or Other Treatments After Discharge: none Physician Certification: I certify the above information and transfer of Tia Blanco is necessaryfor the continuing treatment of the diagnosis listed and that she requires Acute Rehab for less 30 days. Update Admission H&P: No change in H&P PHYSICIAN SIGNATURE: * Additional Instructions* Treva Henderson MD - 12/21/2020 Images from the original note were not included. DISCHARGE INSTRUCTIONS LUMBAR FUSION Your surgeon has performed an operation on your lumbar spine (low back) to fuse two or more of yourvertebrae (bones) together. This procedure is performed to treat a number of different spinal problems, including narrowing of the spinal canal (stenosis), herniated disks, degenerative changes, scoliosis (curvature of the spine) and injuries. Many times, patients feel better immediately after surgery and can't overdo it . Even if you feel well, it is important that you follow these instructions and activity guidelines. If you do not let your back heal properly from the surgery, you can increase the chance of return of your symptoms andother complications. The following her instructions to help any recovery when she had been discharged from the hospital. INCISION: Please check the area around your bandage(s) at least twice daily for signs and symptoms of infection: ALWAYS wash your hands before touching your incision or the area surrounding it There will be surgical glue over the incision- DO NOT pick or remove this glue, it will fall of naturally. You may have any sutures that needs to be removed- this will be done at your initial post-operativevisit by our office staff Your sutures may cause itching please avoid scratching/itching the area it is ok to gently pat over incision with a clean/soft cloth. DO NOT scrub/scratch. You may remove the outer dressing at 7 days post-operatively. There may be a mesh-type dressing directly over the incision- this will fall off on its own, DO NOTpick or pull. DO NOT apply anything over your incision including lotions, creams, Neosporin, or scar creams. BRACE: You must wear your brace at all times when you re out of bed except for showering. Wear a T-shirt under your brace so that it isn t in direct contact with your bare skin or incision. The brace may cause you to sweat and you may feel warm; this can irritate your incision so pay special attention to the above incision instructions. SHOWERING: You may shower as normal once you have removed your outer dressing (see above). No tub baths, hot tubs or whirlpools for 6 weeks. Keep Incision dry as possible- you may wash your incision daily with gentle soap and water. Do not scrub your incision, rub or scratching her incision. Use a soft cloth and lightly dab/pat dry your incision You may reapply a clean dry dressing to the incision daily after showering or leave open to air. EXERCISE/ ACTIVITY RESTRICTIONS: You have unlimited walking and stair climbing privileges. Walking outside (in nice weather only andon stable ground) or walking on a treadmill (no incline) is also allowed Please get up and walk at least 4 times daily This will help prevent post-operative blood clots and promote circulation NO deep bending, lifting or twisting. Bend at the knees Avoid lifting objects heavier than 10 15 pounds We recommend that you avoid strenuous exercise. Do not jog, run, bicycle, lift weights or do any other strenuous exercise unless your doctor says that it is ok Where possible, avoid household activities that involve lifting, reaching, pushing or pulling, suchas laundry, vacuuming and childcare Talk to your doctor before resuming sexual activity Wear your brace, if given, while out of bed. PAIN: Take pain medication as prescribed. As your pain level decreases, you may begin to take [id number] Extra Strength Tylenol. The maximum Tylenol you are able to take is 3000 mg a day total. You should try to wean from your pain medicine in 2-3 weeks. It is not recommended to drive or operate heavy machinery while taking narcotic pain medication. You will be provided with a prescription for pain medication when you are discharged from the hospital Moving forward, you are to contact the office at [phone] or via [employer], for additional refills You can receive up to 2 additional refills after discharge Please contact our office 2-3 days before you run out of your medication, that way we can refill your prescription in a timely manner Refills will NOT be given over the weekend or after office hours (8:30am-4:00pm). Narcotic pain medicine can cause constipation. You may obtain the following medication to prevent constipation. Colace twice daily. Purchase over the counter. (May substitute with similar med such as Senna.) Miralax 1-2 times daily. Over the counter. Twice daily if you are feeling constipated. Magnesium Citrate. OTC. If no bowel movement in a few days and you are becoming uncomfortable. Enema. Over the counter. If no relief with above regiment. You may also be given a prescription for a steroid and a muscle relaxer to help with pain. DRIVING: You may NOT drive a car until told otherwise by your physician (usually at your first office visit). You may be a passenger for short distances (20-30 minutes). If you must take a longer trip, make sure to make several pit stops so that you can walk around andstretch your legs. Reclining the passenger seat seems to be the most comfortable position for most patients. FOLLOW-UP APPOINTMENTS: You will be given a postop appointment 2-3 weeks from your surgery date- you may see either your surgeon or one of our Advanced Practice Providers. QUESTIONS, CONCERNS and WHEN TO CALL US: Although your surgery and recovery will likely be uneventful, you may have some residual numbness, muscle aches and pains in your back and/or legs; this is normal and should improve in the next few weeks Should you experience any of the following: CONTACT US IMMEDIATELY: New numbness or weakness Pain that is progressively getting worse and is not relieved by your pain medication, muscle relaxers, rest and warm compresses Bleeding, redness, swelling, pain, drainage from your surgical incision or if your incision is opening Chills or flu-like symptoms Fever greater than 101.0 F Inability to eat, drink fluids or take medications Problems with bowel or bladder functions Difficulty breathing or shortness of breath Warmth, tenderness or swelling in your calf CONTACT/OFFICE INFORMATION: If you have any additional questions/concerns, please contact the office at [employer] message For life-threathening emergency, please call [phone] documented in this encounter History of Present Illness * Vera Campbell DTR - 12/28/2020 1:02 PM EDT Nutrition update completed. Chart reviewed. Patient to be monitored and followed by the diet all terrain vehicle technician. * Steve Veloz - 12/28/2020 12:04 PM EDT Physical Therapy Facility/Department: [facility] Daily Treatment Note NAME: Tia Blanco : 1955 Date of Service: 12/28/2020 Discharge Recommendations: IP Rehab PT Equipment Recommendations Equipment Needed: Yes Mobility Devices: Wheelchair Wheelchair: Standard Assessment Assessment: Therapist performed a slide board transfer from bed to wheelchair to give the pt. more confidence in her progression. Pt. was able to propel Wheelchair independently. Cues were given to pt. for proper hand placement and technique. Pt. is getting discharged today to [facility]. Pt. was in better spirits today due to going to a SNF close by to her kids. Nurse removed IV before Wheelchair mobilty. Pt. seemed less nervous doing a slide board transfer compared to stand pivot. Pt. left in bed with sequential compression devices put back on BL LE with heating pad over her abdomen. Imporved LE strength per Therapuetic exercise. Pt. demonstrated more participation in donning and doffing of LSO. Log rolling improved with less VC. Prognosis: Fair REQUIRES PT FOLLOW UP: Yes Activity Tolerance Activity Tolerance: Patient Tolerated treatment well Patient Diagnosis(es): There were no encounter diagnoses. has a past medical history of Celiac disease, Diabetes mellitus (HCC), H/O ulcerative colitis, and Irritable bowel syndrome. has a past surgical history that includes Cholecystectomy; Tonsillectomy; hernia repair; and other surgical history (12/21/2020). Restrictions Restrictions/Precautions Restrictions/Precautions: Fall Risk, Surgical Protocols Required Braces or Orthoses?: Yes Required Braces or Orthoses Spinal: Lumbar Corset(Mod assist to don LSO) Position Activity Restriction Spinal Precautions: No Bending, No Lifting, No Twisting Other position/activity restrictions: IV was disconnected from pole before wheelchair mobility by nurse Subjective General Chart Reviewed: Yes Family / Caregiver Present: No Subjective Subjective: Pt. in bed eating breakfast and talking to daughter in phone. Pt. stated she was excited to go to [facility] because her kids are closer. Pt. still complains of legs not being able to move, but is able to move them fine with assist from therapist. Pt. states 6/10 pain in back. Pt. complains of shooting pain done BLE. Pain Assessment Pain Level: 6 Pain Type: Surgical pain Pain Location: Back Pain Orientation: Lower;Mid Pain Radiating Towards: shooting pain down BLE. Pain Descriptors: Aching;Cramping Clinical Progression: Gradually improving Orientation Orientation Overall Orientation Status: Within Normal Limits Cognition Cognition Overall Cognitive Status: WNL Cognition Comment: impulsive, anxious Objective Bed mobility Rolling to Right: Minimal assistance(1 person assist) Supine to Sit: Minimal assistance(1 person assist) Sit to Supine: Moderate assistance(2 person assist) Scooting: Moderate assistance Comment: Pt. was able to use BL UE to assist scooting in both bed and wheel chair. Transfers Comment: Slide board transfer from bed > wheelchair > bed, Mod assist x2 1 therapist in frontand the other behind. Ambulation Ambulation?: No Stairs/Curb Stairs?: No Wheelchair Activities Wheelchair Type: Standard Wheelchair Cushion: None Propulsion: (pt. propeled herself out of room and down to hallway and back. approximately 300 feet.Cues were given for proper propulsion and turning. Pt. needed a few rest breaks to let arms recover. Wedges were put under pts. feet to reduce LE leg pain.) Balance Comments: Pt. demonstrated better sitting balance EOB with R UE support on bed rail. supervision needed for saftey. Dizziness was off and on Exercises Heelslides: 1 set x 10 reps, BL, long sitting, AAROM Gluteal Sets: 1 set x 10 reps, BL, long sitting, AROM Hip Abduction: 1 set x 10 reps, BL, long sitting, BL LE AAROM Knee Short Arc Quad: RLE AROM, LLE AAROM Ankle Pumps: 1 set x 10 reps, BL, long sitting AROM Comments: L LE still lacks in control but pt. is getting more confident with exercises Goals Short term goals Time Frame for Short term goals: 2 weeks Short term goal 1: Log roll min of 1 for pelvic support; min of 1 supine to sit (OK for leg escrow secretary or manual support of LEs) - PROGRESSING Short term goal 2: Sitting EOB 6/10 Modified [place] - PROGRESSING Short term goal 3: Transfer board to w/c min of 1 - progresing Short term goal 4: Gross LLE antigravity strength 3-/5, RLE 2/5 - PROGRESSING Short term goal 5: pt/ family indep donning LSO - PROGRESSING long-term goals Time Frame for long-term goals : 4 weeks long-term goal 1: Bed mobility indep - PROGRESSING long-term goal 2: Bed to chair, any safe approach, supv - PROGRESSING long-term goal 3: Sit to stand mod of 1 - PROGRESSING termite inspector goal 4: Sitting balance modified [place] 06/07, standing 10 - PROGRESSING long-term goal 5: Amb 15', device, mod of 1 -NOT ATTEMPTED Patient Goals Patient goals : walk Plan Plan Times per week: 6 Plan weeks: 2 Current Treatment Recommendations: Strengthening, ROM, Balance Training, Transfer Training, Positioning, Neuromuscular Re-education, Functional Mobility Training Plan Comment: will have initial goals for immeidate mobility (transfers, w/c) and secondary goals (stance/ gait) Safety Devices Type of devices: All fall risk precautions in place, Call light within reach, Gait belt, Nurse notified, Left in bed Restraints Initially in place: No Therapy Time Individual Concurrent Group Co-treatment Time In 927 Time Out 1040 Minutes 72 Timed Code Treatment Minutes: (TP, W/C, Act Fx2) Variance: 12, pt. Hyper verbal, equipment search. SPTA was wearing appropriate PPE per facility policy Patient donned mask when out of room EDSON JacobsenA Ness Aparicio, SIDEWALK INSPECTOR * Valarie Aguilar, RN - 12/28/2020 11:52 AM EDT Report called to [facility]. syruper time 1400 * Tammi Rae DO - 12/27/2020 6:36 PM EDT Images from the original note were not included. Hospitalist Progress Note 12/27/2020 6:36 PM Subjective: Admit Date: 12/21/2020 PCP: No primary care provider on file. Interval History: No overnight issues. DIET GENERAL; I/O last 3 completed shifts: In: 200 [P.O.:200] Out: 1 [Urine:1] Date 12/27/20 0000 - 12/27/20 2359 Shift [id number] 24 Hour Total INTAKE P.O.(mL/kg/hr) 300(0.5) 240 540 Shift Total(mL/kg) 300(3.7) 240(2.9) 540(6.6) OUTPUT Urine(mL/kg/hr) 600 600 Shift Total(mL/kg) 600(7.3) 600(7.3) Weight (kg) 81.6 81.6 81.6 81.6 No data found. Medications: dextrose metoclopramide 10 mg Intravenous Q6H gabapentin 300 mg Oral TID insulin lispro 0-6 Units Subcutaneous 4x Daily AC & HS docusate sodium 100 mg Oral BID sodium chloride flush 10 mL Intravenous 2 times per day enoxaparin 40 mg Subcutaneous Daily metoprolol succinate 25 mg Oral Daily glimepiride 2 mg Oral Daily before lunch thyroid 240 mg Oral Once per day on Thu And thyroid 120 mg Oral Once per day on Thu Fri No results for input(s): WBC, HGB, PLT in the last 72 hours. No results for input(s): NA, K, CL, CO2, BUN, CREATININE, GLUCOSE in the last 72 hours. No results for input(s): AST, ALT, ALB, BILITOT, ALKPHOS in the last 72 hours. No results found for: TRIG, HDL, LDLCALC, CHOL No results found for: PHART, PO2ART, [id number] No results for input(s): INR in the last 72 hours. No results for input(s): CKTOTAL, CKMB, TROPONINI in the last 72 hours. No results for input(s): DDIMER in the last 72 hours. No components found for: HGBA1C Lab Results Component Value Date TSH 3.200 12/24/2020 Urine Culture: No results found for this or any previous visit. Objective: Vitals: BP 124/67 Pulse 87 Temp 96.4 F (35.8 C) (Temporal) Resp 16 Ht 5' (1.524 m) Wt 180lb (81.6 kg) SpO2 93% BMI 35.15 kg/m Pulse Ox: SpO2 Av.5 % Min: 93 % Max: 99 % Supplemental O2: General appearance: alert and cooperative with exam Lungs: clear to auscultation bilaterally Heart: regular rate and rhythm, S1, S2 normal, no murmur, click, rub or gallop Abdomen: soft, non-tender; bowel sounds normal; no masses, no organomegaly Extremities: extremities normal, atraumatic, no cyanosis or edema Neurologic: No obvious focal neurologic deficits. Assessment Large central L1-2 disc herniation Back pain H/o COPD Past Medical History []??Expand by Default Diagnosis Date Celiac disease Diabetes mellitus (HCC) H/O ulcerative colitis Irritable bowel syndrome PLAN: S/p L1-2 spine surgery 12/21. Ortho managing Moving LEs better today Pain control H&H stable Wbc trending down. Monitor. Lovenox was started. Constipation -resume laxatives PT/OT Patient was unfortunately denied rehab placement by her insurance, social work/case management is working on SNF. For question after 7 PM, please contact [facility] hospitalist on consult. Tammi Rae MD [facility] Hospitalist * Steve Veloz - 12/27/2020 11:10 AM EDT Physical Therapy Facility/Department: [facility] Daily Treatment Note NAME: Tia Blanco : 1955 Date of Service: 12/27/2020 Discharge Recommendations: IP Rehab Assessment Body structures, Functions, Activity limitations: Decreased functional mobility ;Decreased ROM;Decreased strength;Decreased balance;Increased pain;Decreased posture;Decreased coordination Assessment: Pt. felt upset due to lack of help with Bowel movements and bathing. Therapist notifiedOT about pt. concern for self care and mobility. Pt. was nervous to stand up due to diminshed sensation and LE weakness. Pt. transfered to commode and then to chair for a max A x2. Exercises needed inital assistance for pt. to complete. attempt slide board next session to give pt. more confidence REQUIRES PT FOLLOW UP: Yes Activity Tolerance Activity Tolerance: Patient limited by pain Activity Tolerance: Pt limited by fear Patient Diagnosis(es): There were no encounter diagnoses. has a past medical history of Celiac disease, Diabetes mellitus (HCC), H/O ulcerative colitis, and Irritable bowel syndrome. has a past surgical history that includes Cholecystectomy; Tonsillectomy; hernia repair; and other surgical history (12/21/2020). Restrictions Restrictions/Precautions Restrictions/Precautions: Fall Risk, Surgical Protocols Required Braces or Orthoses?: Yes Required Braces or Orthoses Spinal: Lumbar Corset Position Activity Restriction Spinal Precautions: No Bending, No Lifting, No Twisting Other position/activity restrictions: IV Subjective General Chart Reviewed: Yes Family / Caregiver Present: No Subjective Subjective: upon entry, pt. was found in bed supine. Pt. felt upset with nursing and urged for helpwith bathing and going to the bathroom. Pt. claims she cant move her legs but does so with assist. Pt. states back pain is 7/10 constant. pt.states her sensation is abnormal in her legs. Nurse administered meds during session. Pain Assessment Pain Level: 7 Pain Type: Surgical pain Pain Location: Back;Buttocks;Leg Pain Orientation: Right;Left;Lower;Mid Pain Descriptors: Aching;Burning;Sore;Tender;Pressure;Throbbing Pain Frequency: Continuous Pain Onset: On-going Clinical Progression: Gradually improving Functional Pain Assessment: Prevents or interferes some active activities and ADLs Orientation Orientation Overall Orientation Status: Within Normal Limits Cognition Cognition Overall Cognitive Status: WNL Cognition Comment: impulsive, anxious Objective Bed mobility Rolling to Right: Moderate assistance Supine to Sit: Moderate assistance Scooting: Maximal assistance;2 Person assistance Comment: log roll towards right, therapist assisted with with leg positioning. kneee blocking needed for sit to stand Transfers Sit to Stand: Maximum Assistance(x1 attempt 2 assist BL knee block, x1 max assist of 1, + 1 for saftey) Stand to sit: Maximum Assistance Stand Pivot Transfers: Maximum Assistance(bed > bsc> chair +1 for saftey) Comment: Max assist x2 Ambulation Ambulation?: No Stairs/Curb Stairs?: No Balance Comments: Seated supervision with UE support on bed rails. Exercises Quad Sets: 1 set x 10 reps, BLE, long sitting, Heelslides: 1 set x 10 reps, BLE, long sitting Gluteal Sets: 1 set x 10 reps, BLE, long sitting Hip Abduction: 1 set x 10 reps, BLE, long sitting Ankle Pumps: 1 set x 10 reps, BLE, long sitting Comments: assist needed for all exercises to initiate movement. Pt. showed better control as the reps carried on. Goals Short term goals Time Frame for Short term goals: 2 weeks Short term goal 1: Log roll min of 1 for pelvic support; min of 1 supine to sit (OK for leg escrow secretary or manual support of LEs) - PROGRESSING Short term goal 2: Sitting EOB [birth year] Modified [place] - PROGRESSING Short term goal 3: Transfer board to w/c min of 1 - NOT ADDRESSED Short term goal 4: Gross LLE antigravity strength 3-/5, RLE 2/5 - PROGRESSING Short term goal 5: pt/ family indep donning LSO - PROGRESSING termite inspector goals Time Frame for long-term goals : 4 weeks long-term goal 1: Bed mobility indep - PROGRESSING termite inspector goal 2: Bed to chair, any safe approach, supv - PROGRESSING long-term goal 3: Sit to stand mod of 1 - PROGRESSING long-term goal 4: Sitting balance modified [place] 06/07, standing 12/05 - PROGRESSING long-term goal 5: Amb 15', device, mod of 1 -NOT ATTEMPTED Patient Goals Patient goals : walk Plan Plan Times per week: 6 Plan weeks: 2 Current Treatment Recommendations: Strengthening, ROM, Balance Training, Transfer Training, Positioning, Neuromuscular Re-education, Functional Mobility Training Plan Comment: will have initial goals for immeidate mobility (transfers, w/c) and secondary goals (stance/ gait) Safety Devices Type of devices: All fall risk precautions in place, Call light within reach, Gait belt, Left in chair, Nurse notified Restraints Initially in place: (no alarms engaged upon entry to room) Therapy Time Individual Concurrent Group Co-treatment Time In 924 Time Out 1007 Minutes 42 Timed Code Treatment Minutes: (TP, Act F X2) SPTA was wearing appropriate PPE per facility policy Patient donned mask when out of room FRANCOIS Jacobsen PTA * Tammi Rae DO - 12/26/2020 9:59 AM EDT Images from the original note were not included. Hospitalist Progress Note 12/26/2020 5:59 PM Subjective: Admit Date: 12/21/2020 PCP: No primary care provider on file. Interval History: No overnight issues. DIET GENERAL; I/O last 3 completed shifts: In: 2300 [P.O.:2300] Out: 1100 [Urine:1100] Date 12/26/20 0000 - 12/26/20 2359 Shift [id number] [id number] [id number] 24 Hour Total INTAKE P.O.(mL/kg/hr) 600(0.9) 200(0.3) 800 Shift Total(mL/kg) 600(7.3) 200(2.4) 800(9.8) OUTPUT Urine(mL/kg/hr) 750(1.1) 750 Shift Total(mL/kg) 750(9.2) 750(9.2) Weight (kg) 81.6 81.6 81.6 81.6 No data found. Medications: dextrose metoclopramide 10 mg Intravenous Q6H gabapentin 300 mg Oral TID insulin lispro 0-6 Units Subcutaneous 4x Daily AC & HS docusate sodium 100 mg Oral BID sodium chloride flush 10 mL Intravenous 2 times per day enoxaparin 40 mg Subcutaneous Daily metoprolol succinate 25 mg Oral Daily glimepiride 2 mg Oral Daily before lunch thyroid 240 mg Oral Once per day on Thu And thyroid 120 mg Oral Once per day on Thu Recent Labs 12/24/20 0109 WBC 14.5* HGB 12.5 PLT 278 No results for input(s): NA, K, CL, CO2, BUN, CREATININE, GLUCOSE in the last 72 hours. No results for input(s): AST, ALT, ALB, BILITOT, ALKPHOS in the last 72 hours. No results found for: TRIG, HDL, LDLCALC, CHOL No results found for: PHART, PO2ART, [id number] No results for input(s): INR in the last 72 hours. No results for input(s): CKTOTAL, CKMB, TROPONINI in the last 72 hours. No results for input(s): DDIMER in the last 72 hours. No components found for: HGBA1C Lab Results Component Value Date TSH 3.200 12/24/2020 Urine Culture: No results found for this or any previous visit. Objective: Vitals: BP 132/72 Pulse 78 Temp 97.2 F (36.2 C) (Temporal) Resp 16 Ht 5' (1.524 m) Wt 180lb (81.6 kg) SpO2 97% BMI 35.15 kg/m Pulse Ox: SpO2 Av.5 % Min: 93 % Max: 97 % Supplemental O2: General appearance: alert and cooperative with exam Lungs: clear to auscultation bilaterally Heart: regular rate and rhythm, S1, S2 normal, no murmur, click, rub or gallop Abdomen: soft, non-tender; bowel sounds normal; no masses, no organomegaly Extremities: extremities normal, atraumatic, no cyanosis or edema Neurologic: No obvious focal neurologic deficits. Assessment Large central L1-2 disc herniation Back pain H/o COPD Past Medical History []??Expand by Default Diagnosis Date Celiac disease Diabetes mellitus (HCC) H/O ulcerative colitis Irritable bowel syndrome PLAN: S/p L1-2 spine surgery 12/21. Ortho managing Moving LEs better today Pain control H&H stable Wbc trending down. Monitor. Lovenox was started. Constipation -got colace, miralax, MOM didn't help. Add enema Add a dose of relistor. PT/OT Awaiting rehab-discharge to rehab once bed is ready. For question after 7 PM, please contact [facility] hospitalist on consult. Tammi Rae MD [facility] * Mayte Gunter MD - 12/25/2020 12:46 PM EDT Hospitalist Progress Note 12/25/2020 12:46 PM Subjective: Admit Date: 12/21/2020 PCP: No primary care provider on file. Interval History: No overnight issues. DIET GENERAL; I/O last 3 completed shifts: In: - Out: 1900 [Urine:1900] Date 12/25/20 0000 - 12/25/20 2359 Shift [id number] 8913-7700 [id number] 24 Hour Total INTAKE Shift Total(mL/kg) OUTPUT Urine(mL/kg/hr) 800(1.2) 800 Shift Total(mL/kg) 800(9.8) 800(9.8) Weight (kg) 81.6 81.6 81.6 81.6 No data found. Medications: dextrose metoclopramide 10 mg Intravenous Q6H gabapentin 300 mg Oral TID insulin lispro 0-6 Units Subcutaneous 4x Daily AC & HS docusate sodium 100 mg Oral BID sodium chloride flush 10 mL Intravenous 2 times per day enoxaparin 40 mg Subcutaneous Daily metoprolol succinate 25 mg Oral Daily glimepiride 2 mg Oral Daily before lunch thyroid 240 mg Oral Once per day on Thu And thyroid 120 mg Oral Once per day on Thu Recent Labs 12/22/20 1633 12/23/20 0130 12/24/20 0109 WBC 19.6* 15.6* 14.5* HGB 13.1 12.6 12.5 PLT 315 287 278 No results for input(s): NA, K, CL, CO2, BUN, CREATININE, GLUCOSE in the last 72 hours. No results for input(s): AST, ALT, ALB, BILITOT, ALKPHOS in the last 72 hours. No results found for: TRIG, HDL, LDLCALC, CHOL No results found for: PHART, PO2ART, [id number] No results for input(s): INR in the last 72 hours. No results for input(s): CKTOTAL, CKMB, TROPONINI in the last 72 hours. No results for input(s): DDIMER in the last 72 hours. No components found for: HGBA1C Lab Results Component Value Date TSH 3.200 12/24/2020 Urine Culture: No results found for this or any previous visit. Objective: Vitals: BP (!) 120/58 Pulse 73 Temp 99 F (37.2 C) (Temporal) Resp 18 Ht 5' (1.524 m) Wt 180 lb (81.6 kg) SpO2 95% BMI 35.15 kg/m Pulse Ox: SpO2 Av % Min: 94 % Max: 96 % Supplemental O2: General appearance: alert and cooperative with exam Lungs: clear to auscultation bilaterally Heart: regular rate and rhythm, S1, S2 normal, no murmur, click, rub or gallop Abdomen: soft, non-tender; bowel sounds normal; no masses, no organomegaly Extremities: extremities normal, atraumatic, no cyanosis or edema Neurologic: No obvious focal neurologic deficits. Assessment Large central L1-2 disc herniation Back pain H/o COPD Past Medical History []??Expand by Default Diagnosis Date Celiac disease Diabetes mellitus (HCC) H/O ulcerative colitis Irritable bowel syndrome PLAN: S/p L1-2 spine surgery 12/21. Ortho managing Moving LEs better today Pain control H&H stable Wbc trending down. Monitor. Ortho requested to start lovenox today Constipation -got colace, miralax, MOM didn't help. Add enema Add a dose of relistor. PT/OT Awaiting rehab Mayte Gunter MD [facility] * Jemima Bonilla, OT - 12/25/2020 10:23 AM EDT Occupational Therapy Occupational Therapy Initial Assessment Date: 12/25/2020 Patient Name: Tia Blanco : 1955 Date of Service: 12/25/2020 Discharge Recommendations: IP Rehab This provider wore an N95, goggles, and gloves during the treatment session. Assessment Performance deficits / Impairments: Decreased functional mobility ;Decreased balance;Decreased ADL status;Decreased endurance;Decreased high-level IADLs;Decreased strength Assessment: OT jessenia completed, pt admitted with lumbar disc herniation s/p L1-2 PSDF and discectomyon 12/21; presents with performance deficits listed above. Pt mod assist for bed mobility with advancing bilat LE towards EOB, max assist x2 person for sit to stand from EOB, stand pivot with max + mod assist x2 person, dependent for helen-care. Pt would benefit from continued therapy, recommend IP rehab. Prognosis: Good Decision Making: Medium Complexity OT Education: OT Role;Plan of Care;ADL Adaptive Strategies;Transfer Training;Precautions REQUIRES OT FOLLOW UP: Yes Activity Tolerance Activity Tolerance: Patient Tolerated treatment well Safety Devices Safety Devices in place: Yes Type of devices: All fall risk precautions in place;Gait belt;Patient at risk for falls;Call light within reach;Left in chair;Nurse notified Patient Diagnosis(es): There were no encounter diagnoses. has a past medical history of Celiac disease, Diabetes mellitus (HCC), H/O ulcerative colitis, and Irritable bowel syndrome. has a past surgical history that includes Cholecystectomy; Tonsillectomy; hernia repair; and other surgical history (12/21/2020). Restrictions Restrictions/Precautions Restrictions/Precautions: Fall Risk, Surgical Protocols Required Braces or Orthoses?: Yes Required Braces or Orthoses Spinal: Lumbar Corset(min to don) Position Activity Restriction Spinal Precautions: No Bending, No Lifting, No Twisting(recall all) Other position/activity restrictions: IV Subjective General Chart Reviewed: Yes Patient assessed for rehabilitation services?: Yes Additional Pertinent Hx: s/p L1-2 PSDF and discectomy on 12/21 Family / Caregiver Present: No Diagnosis: lumbar disc herniation Subjective Subjective: Pt supine in bed upon entry, agreeable to therapy Patient Currently in Pain: Denies(recent pain meds given) Pain Assessment Pain Assessment: (varying pain throughout session) Pain Type: Surgical pain;Acute pain Pain Location: Back;Leg Pain Orientation: Right;Left Pain Descriptors: Aching;Sore Pain Frequency: (pt reporting pain in bilat LE with standing; back pain varying throughout session) Pre Treatment Pain Screening Intervention List: Patient able to continue with treatment Vital Signs Patient Currently in Pain: Denies(recent pain meds given) Social/Functional History Social/Functional History Lives With: Alone Type of Home: House Home Layout: Performs ADL's on one level Bathroom Shower/Tub: Tub/Shower unit Bathroom Toilet: Standard ADL Assistance: Independent Homemaking Assistance: Independent Homemaking Responsibilities: Yes Ambulation Assistance: Independent Transfer Assistance: Independent Active Cadd Operator: Yes 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 Pt had been using treadmill until within last month.Pt notes her trunk would flex to a certain point to help alleviate back pressure. Objective Vision: Within Functional Limits Hearing: Within functional limits Orientation Overall Orientation Status: Within Functional Limits Observation/Palpation Observation: LSO brace donned while sitting EOB Balance Sitting Balance: Supervision Standing Balance: Maximum assistance Toilet Transfers Toilet - Technique: Stand pivot Equipment Used: Standard bedside commode Toilet Transfer: Moderate assistance;Maximum assistance Toilet Transfers Comments: Treatment: sit to stand from EOB with max assist x2 person initially, stand step transfer with max assist + mod assist x2 person, max assist with 1 therapist in front and mod assist with 2nd therapist behind pt to assist in guiding hips onto BSC. Cues for sequencing and to reach for armrest prior to sitting. Required two skilled therapists for pt and thearpist safety toadvance mobility. ADL UE Dressing: Minimal assistance Toileting: Dependent/Total Additional Comments: Treatment: donning LSO brace while sitting EOB with min assist, pt able to position LSO but required min assist with main closure. Sit to stand from [facility] with max assist, dependent for helen-care in standing; pt initially trying to bend forward for helen-care, reviewed precautionswith patient. Tone RUE RUE Tone: Normotonic Tone LUE LUE Tone: Normotonic Coordination Movements Are Fluid And Coordinated: Yes Bed mobility Supine to Sit: Moderate assistance Comment: log roll towards right, mod assist, mostly assist with bilat LE and min assist for trunk elevation Transfers Sit Pivot Transfers: Moderate assistance;Maximum assistance Sit to stand: Maximum assistance;2 Person assistance Stand to sit: Maximum assistance;2 Person assistance Cognition Overall Cognitive Status: WFL Cognition Comment: impulsive, anxious Sensation Overall Sensation Status: WFL LUE AROM (degrees) LUE AROM : WFL RUE AROM (degrees) RUE AROM : WFL LUE Strength LUE Strength Comment: grossly 4+/5 RUE Strength RUE Strength Comment: grossly 4+/5 Plan Plan Times per week: 5-7 Plan weeks: 4 Current Treatment Recommendations: Safety Education & Training, Balance Training, Patient/Caregiver Education & Training, Strengthening, Functional Mobility Training, Endurance Training, Equipment Evaluation, Education, & procurement, Self-Care / ADL OutComes Score -[facility] Daily Activity Inpatient How much help for putting on and taking off regular lower body clothing?: Total How much help for Bathing?: A Lot How much help for Toileting?: Total How much help for putting on and taking off regular upper body clothing?: A Little How much help for taking care of personal grooming?: None How much help for eating meals?: None [facility] Inpatient Daily Activity Raw Score: 15 [facility] Inpatient ADL T-Scale Score : 34.69 ADL Inpatient CMS 0-100% Score: 56.46 ADL Inpatient CMS G-Code Modifier : CK Goals Short term goals Time Frame for Short term goals: 4 weeks Short term goal 1: Don/doff LSO brace mod I Short term goal 2: Functional task while maintaining precautions with no verbal cues Short term goal 3: LE dressing, AE PRN, min assist Short term goal 4: Toileting, including transfer, min assist Short term goal 5: Grooming task, mod I Patient Goals Patient goals : to get stronger Therapy Time Individual Concurrent Group Co-treatment Time In 15 Time Out 1000 Minutes 45 Timed Code Treatment Minutes: 25 Minutes(self care:1 funct act:1) Variance: 7(7 minutes- pt on BSC) Patient's Occupational Therapy Plan [facility]. Goals and/or treatment plan was established in collaboration with patient/family/other representatives. Jemima Bonilla OTR/L Jemima Bonilla OT * Ness Aparicio, SIDEWALK INSPECTOR - 12/25/2020 10:21 AM EDT Physical Therapy Facility/Department: [facility] Daily Treatment Note NAME: Tia Blanco : 1955 Date of Service: 12/25/2020 Discharge Recommendations: IP Rehab Assessment Body structures, Functions, Activity limitations: Decreased functional mobility ;Decreased ROM;Decreased strength;Decreased balance;Increased pain;Decreased posture;Decreased coordination Assessment: nervous, overwhelmed with decreased function. improved LE strength with LE therex. encouraged isometrics. BLE some weight accepted but poor posture acheived. attempt slide board next session. rec rehab at discharge. Prognosis: Fair REQUIRES PT FOLLOW UP: Yes Activity Tolerance Activity Tolerance: Patient Tolerated treatment well Activity Tolerance: Pt limited by fear Patient Diagnosis(es): There were no encounter diagnoses. has a past medical history of Celiac disease, Diabetes mellitus (HCC), H/O ulcerative colitis, and Irritable bowel syndrome. has a past surgical history that includes Cholecystectomy; Tonsillectomy; hernia repair; and other surgical history (12/21/2020). Restrictions Restrictions/Precautions Restrictions/Precautions: Fall Risk, Surgical Protocols Required Braces or Orthoses?: Yes Required Braces or Orthoses Spinal: Lumbar Corset(min to don) Position Activity Restriction Spinal Precautions: No Bending, No Lifting, No Twisting(recall all) Other position/activity restrictions: IV Subjective General Chart Reviewed: Yes Family / Caregiver Present: No Subjective Subjective: supine, tucked in with several pillows, blankets. patient really wants to sit on toilet, needs to have bowel movement but states she doesn't feel if she can go. states several times she can not move her legs. General Comment Comments: $precert Pain Screening Patient Currently in Pain: Denies(recent pain meds given) Vital Signs Patient Currently in Pain: Denies(recent pain meds given) Orientation Orientation Overall Orientation Status: Within Functional Limits Cognition Cognition Overall Cognitive Status: WFL Cognition Comment: impulsive, anxious Objective Bed mobility Comment: observed with OT assist, patient perform logroll technique towards right, mod assist mostly LE's and some for trunk elevation Transfers Sit to Stand: Maximum Assistance(2reps) Stand to sit: Maximum Assistance Stand Pivot Transfers: Maximum Assistance(2reps) Balance Comments: seated supervision with /without UE support. stance max assist no device. bilat knee block, cues for hip/trunk extension, does not achieve full stance Exercises Quad Sets: . Heelslides: AAROM BLE Gluteal Sets: . Hip Abduction: AAROM BLE Knee Long Arc Quad: . Knee Short Arc Quad: RLE AROM, LLE AAROM Ankle Pumps: . assist for increased ROM. instruct self ROM and gentle heel cord stretch with sheet Comments: hip rotation AROM. all therex 10reps each Other exercises Other exercises?: (I.S. 1750ml x8reps) Goals Short term goals Time Frame for Short term goals: 2 weeks Short term goal 1: Log roll min of 1 for pelvic support; min of 1 supine to sit (OK for leg escrow secretary or manual support of LEs) - PROGRESSING Short term goal 2: Sitting EOB [birth year] Modified [place] - PROGRESSING Short term goal 3: Transfer board to w/c min of 1 - NOT ADDRESSED Short term goal 4: Gross LLE antigravity strength 3-/5, RLE 2/5 - PROGRESSING Short term goal 5: pt/ family indep donning LSO - PROGRESSING termite inspector goals Time Frame for long-term goals : 4 weeks termite inspector goal 1: Bed mobility indep - PROGRESSING long-term goal 2: Bed to chair, any safe approach, supv - PROGRESSING long-term goal 3: Sit to stand mod of 1 - PROGRESSING termite inspector goal 4: Sitting balance modified [place] 06/07, standing 3/10 - PROGRESSING long-term goal 5: Amb 15', device, mod of 1 -NOT ATTEMPTED Patient Goals Patient goals : walk Plan Plan Times per week: 6 Plan weeks: 2 Current Treatment Recommendations: Strengthening, ROM, Balance Training, Transfer Training, Positioning, Neuromuscular Re-education, Functional Mobility Training Plan Comment: will have initial goals for immeidate mobility (transfers, w/c) and secondary goals (stance/ gait) Safety Devices Type of devices: All fall risk precautions in place, Call light within reach, Gait belt, Left in chair, Nurse notified Restraints Initially in place: (no alarms engaged upon entry to room) Therapy Time Individual Concurrent Group Co-treatment Time In 0900 Time Out 1002 Minutes 62 Timed Code Treatment Minutes: (FAx2-TP) Variance: (10min toileting) *PPE per facility policy used during session* Ness Aparicio PTA * Steve Martinez MD - 12/25/2020 8:22 AM EDT Orthopedic Spine Progress Note S - No issues over night. Pain improved with gabapentin O - BP 123/82 Pulse 68 Temp 97 F (36.1 C) (Temporal) Resp 16 Ht 5' (1.524 m) Wt 180 lb (81.6 kg) SpO2 95% BMI 35.15 kg/m Lower Extremity Motor: HF Q TA EHL GSC Right 2 2 0 2 2 Left 2 2 0 2 2 Lower extremity sensation to light touch: L2 L3 L4 L5 S1 Right Intact Intact Intact Intact Intact Left Intact Intact Intact Intact Intact A/P - 65 yo F s/p L1-2 PSDF & discectomy 12/21/20 - Continue to mobilize with physical therapy - DVT ppx per primary team - Continue to work on rehab placement - Continued medical management per primary team Steve Martinez MD 12/25/2020 8:26 AM * Mayte Gunter MD - 12/24/2020 12:07 PM EDT Hospitalist Progress Note 12/24/2020 12:07 PM Subjective: Admit Date: 12/21/2020 PCP: No primary care provider on file. Interval History: No overnight issues. DIET GENERAL; I/O last 3 completed shifts: In: 250 [P.O.:250] Out: 7485 [Urine:7425; Drains:60] Date 12/24/20 0000 - 12/24/20 2359 Shift 7256-5643 0431-6134 6666-2135 24 Hour Total INTAKE Shift Total(mL/kg) OUTPUT Urine(mL/kg/hr) 4300(6.6) 4300 Drains(mL/kg) 20(0.2) 20(0.2) Shift Total(mL/kg) 4320(52.9) 4320(52.9) Weight (kg) 81.6 81.6 81.6 81.6 Patient Vitals for the past 96 hrs (Last 3 readings): Weight 12/21/20 0430 180 lb (81.6 kg) Medications: dextrose metoclopramide 10 mg Intravenous Q6H gabapentin 300 mg Oral TID docusate sodium 100 mg Oral BID sodium chloride flush 10 mL Intravenous 2 times per day [Held by provider] enoxaparin 40 mg Subcutaneous Daily metoprolol succinate 25 mg Oral Daily insulin lispro 0-6 Units Subcutaneous Q4H glimepiride 2 mg Oral Daily before lunch thyroid 240 mg Oral Once per day on Thu And thyroid 120 mg Oral Once per day on Thu Recent Labs 12/22/20 1633 12/23/20 0130 12/24/20 0109 WBC 19.6* 15.6* 14.5* HGB 13.1 12.6 12.5 PLT 315 287 278 No results for input(s): NA, K, CL, CO2, BUN, CREATININE, GLUCOSE in the last 72 hours. No results for input(s): AST, ALT, ALB, BILITOT, ALKPHOS in the last 72 hours. No results found for: TRIG, HDL, LDLCALC, CHOL No results found for: PHART, PO2ART, [id number] No results for input(s): INR in the last 72 hours. No results for input(s): CKTOTAL, CKMB, TROPONINI in the last 72 hours. No results for input(s): DDIMER in the last 72 hours. No components found for: HGBA1C No results found for: TSH Urine Culture: No results found for this or any previous visit. Objective: Vitals: BP (!) 128/100 Pulse 63 Temp 97.3 F (36.3 C) (Temporal) Resp 18 Ht 5' (1.524 m) Wt 180 lb (81.6 kg) SpO2 96% BMI 35.15 kg/m Pulse Ox: SpO2 Av.8 % Min: 95 % Max: 97 % Supplemental O2: General appearance: alert and cooperative with exam Lungs: clear to auscultation bilaterally Heart: regular rate and rhythm, S1, S2 normal, no murmur, click, rub or gallop Abdomen: soft, non-tender; bowel sounds normal; no masses, no organomegaly Extremities: extremities normal, atraumatic, no cyanosis or edema Neurologic: No obvious focal neurologic deficits. Assessment Large central L1-2 disc herniation Back pain H/o COPD Past Medical History []?Expand by Default Diagnosis Date Celiac disease Diabetes mellitus (HCC) H/O ulcerative colitis Irritable bowel syndrome PLAN: S/p L1-2 spine surgery 12/21. Ortho managing Moving LE better today Pain control H&H stable Wbc trending down. Monitor. Restart anticoagulation if OK with Ortho Constipation -got colace, miralax, MOM didn't help. Add enema Add a dose of relistor. PT/OT Plan for rehab Mayte Gunter MD [facility] Hospital[facility] * Steve Martinez MD - 12/24/2020 5:59 AM EDT S: Doing ok today. Reports legs feel heavy. Denies N/T. Frustrated that she has not had a BM. Passing gas. PT recommending IP rehab. Vitals: 12/24/20 0447 BP: (!) 147/66 Pulse: 58 Resp: 17 Temp: 97 F (36.1 C) SpO2: 96% Physical Exam Patient resting in bed. Neuro Extremity Exam: Lower Extremity Motor: HF Q TA EHL GSC Right 3 3 0 2 2 Left 2 2 0 2 2 Lower extremity sensation to light touch: L2 L3 L4 L5 S1 Right Intact Intact Intact Intact Intact Left Intact Intact Intact Intact Intact Drain: 20/20 cc S/p L1-2 PSDF & discectomy on 12/21 Plan -Weight bearing: AT -Drain pulled today -LSO brace to be worn with therapy, ok to be OOB without brace -Q4hr BP checks, maintain MAPs >75 until POD#5 -Page 1 team if MAPs <75, as patient may need pressors to maintain MAPs -No return to OR planned -Keep silverlon dressing C/D/I until POD#10 -OK for diet from ortho standpoint -Abx ok to be discontinued -PT/OT -DVT prophylaxis - mobilize & SCDs -Ok for anticoagulation today -Medical management/pain control per 1 team -Flexeril -Recommend increased bowel regimen, add reglan -F/u OP w/ Dr Martinez in 2-3 weeks, discharge instructions in AVS -Ortho to sign off, please page donor technician resident with questions or concerns Treva Henderson M.D. 12/24/2020 5:59 AM Attending Attestation I have individually seen and evaluated the patient. I agree with the findings and the plan as documented in the resident's note. Moving lower extremities more today Will add gabapentin to help with pain OK to restart DVT chemoprophylaxis Work on rehab placement Continued medical management per primary team Steve Martinez M.D. 12/24/2020 8:55 AM * Latonya White OT - 12/23/2020 2:28 PM EDT Occupational Therapy OT order received. Will put pt on schedule for OT eval. Latonya White OTR/L * Mayte Gunter MD - 12/23/2020 12:14 PM EDT Hospitalist Progress Note 12/23/2020 12:14 PM Subjective: Admit Date: 12/21/2020 PCP: No primary care provider on file. Interval History: No overnight issues. DIET GENERAL; I/O last 3 completed shifts: In: 2675 [P.O.:1300; I.V.:1375] Out: 5165 [Urine:5050; Drains:115] Date 12/23/20 0000 - 12/23/20 2359 Shift 1763-2002 5519-3898 0018-6618 24 Hour Total INTAKE P.O.(mL/kg/hr) 400(0.6) 400 Shift Total(mL/kg) 400(4.9) 400(4.9) OUTPUT Urine(mL/kg/hr) 2650(4.1) 350 3000 Drains(mL/kg) 20(0.2) 20(0.2) Shift Total(mL/kg) 2670(32.7) 350(4.3) 3020(37) Weight (kg) 81.6 81.6 81.6 81.6 Patient Vitals for the past 96 hrs (Last 3 readings): Weight 12/21/20 0430 180 lb (81.6 kg) Medications: lactated ringers 125 mL/hr at 12/23/20 0624 dextrose docusate sodium 100 mg Oral BID sodium chloride flush 10 mL Intravenous 2 times per day [Held by provider] enoxaparin 40 mg Subcutaneous Daily metoprolol succinate 25 mg Oral Daily insulin lispro 0-6 Units Subcutaneous Q4H glimepiride 2 mg Oral Daily before lunch thyroid 240 mg Oral Once per day on Thu And thyroid 120 mg Oral Once per day on Thu ceFAZolin 2,000 mg Intravenous Q8H Recent Labs 12/21/20 0528 12/22/20 1633 12/23/20 0130 WBC 15.7* 19.6* 15.6* HGB 15.1 13.1 12.6 PLT 332 315 287 Recent Labs 12/21/20 0528 NA 132* K 3.9 CL 99 CO2 26 BUN 15 CREATININE 0.42* GLUCOSE 311* No results for input(s): AST, ALT, ALB, BILITOT, ALKPHOS in the last 72 hours. No results found for: TRIG, HDL, LDLCALC, CHOL No results found for: PHART, PO2ART, [id number] Recent Labs 12/21/20 0528 INR 1.0 No results for input(s): CKTOTAL, CKMB, TROPONINI in the last 72 hours. No results for input(s): DDIMER in the last 72 hours. No components found for: HGBA1C No results found for: TSH Urine Culture: No results found for this or any previous visit. Objective: Vitals: BP 112/74 Pulse 73 Temp 97.6 F (36.4 C) (Temporal) Resp 14 Ht 5' (1.524 m) Wt 180lb (81.6 kg) SpO2 96% BMI 35.15 kg/m Pulse Ox: SpO2 Av.8 % Min: 95 % Max: 100 % Supplemental O2: General appearance: alert and cooperative with exam Lungs: clear to auscultation bilaterally Heart: regular rate and rhythm, S1, S2 normal, no murmur, click, rub or gallop Abdomen: soft, non-tender; bowel sounds normal; no masses, no organomegaly Extremities: extremities normal, atraumatic, no cyanosis or edema Neurologic: No obvious focal neurologic deficits. Assessment Large central L1-2 disc herniation Back pain H/o COPD Past Medical History []?Expand by Default Diagnosis Date Celiac disease Diabetes mellitus (HCC) H/O ulcerative colitis Irritable bowel syndrome PLAN: S/p L1-2 spine surgery 12/21. Ortho managing Drain in place Pain control H&H stable Wbc trending down. Monitor. Gentle IV hydration -january d/c if eating ok. Ortho to restart anticoagulation POD #3 Constipation -got colace, miralax, MOM didn't help. D/w pt, will add enema PT/OT Plan for rehab Mayte Gunter MD [facility] Hospitalist * Diana Isaacs - 12/23/2020 11:24 AM EDT Physical Therapy Facility/Department: [facility] Daily Treatment Note NAME: Tia Blanco : 1955 Date of Service: 12/23/2020 Discharge Recommendations: IP Rehab Assessment Body structures, Functions, Activity limitations: Decreased functional mobility ;Decreased ROM;Decreased strength;Decreased balance;Increased pain;Decreased posture;Decreased coordination Assessment: Pt required max assist of 2 bed mobility and sit to stand. Pt performed sitting EOB with mod to max assist. Pt limited by fear, tearful and frustrated about her lack of mobility as well as tingling BLE. Pt reported RLE feels more sluggish than LLE. Pt is progressing towards PT goals butnone met at this time. Pt is impulsive, highly motivated and able to tolerate 15 hrs of rehab a week. Recommend IP Rehab at discharge. REQUIRES PT FOLLOW UP: Yes Activity Tolerance Activity Tolerance: Patient limited by pain Activity Tolerance: Pt limited by fear Patient Diagnosis(es): There were no encounter diagnoses. has a past medical history of Celiac disease, Diabetes mellitus (HCC), H/O ulcerative colitis, and Irritable bowel syndrome. has a past surgical history that includes Cholecystectomy; Tonsillectomy; hernia repair; and other surgical history (12/21/2020). Restrictions Restrictions/Precautions Restrictions/Precautions: Fall Risk, Surgical Protocols Required Braces or Orthoses?: Yes Required Braces or Orthoses Spinal: Lumbar Corset Position Activity Restriction Spinal Precautions: No Bending, No Lifting, No Twisting Other position/activity restrictions: Order reads OK for OOB without brace. Dtr mentions that physician mentioned ankle braces (PT comfortable with multipodus splints at present) Subjective General Chart Reviewed: Yes Family / Caregiver Present: Yes(daughter) Subjective Subjective: Pt notes she has tingling in BLE's. Pt notes her thighs are painful today, since she was positioned to sleep on her side. Pt was tearful and required reassurance as she progresses. General Comment Comments: Doll, hemovac drain, IV. Pain Screening Patient Currently in Pain: Yes Pain Assessment Pain Assessment: 0-10 Pain Level: 7 Pain Type: Surgical pain Pain Location: Back(pain in thighs) Pain Orientation: Lower Vital Signs Patient Currently in Pain: Yes Orientation Orientation Overall Orientation Status: Within Normal Limits Cognition Cognition Overall Cognitive Status: WNL Objective Bed mobility Rolling to Left: Moderate assistance Rolling to Right: Moderate assistance Supine to Sit: 2 Person assistance;Maximum assistance Sit to Supine: 2 Person assistance;Maximum assistance Scooting: Maximal assistance;2 Person assistance Comment: Log roll Transfers Comment: Attempted sit to stand with max assist of 2. Unable to get pt's buttocks off bed more than2 inches. Pt was very fearful due to LE tingling. Ambulation Ambulation?: No Stairs/Curb Stairs?: No Balance Comments: Pt sat EOB with mod to max assist. Heavy reliance on BUE. LOB when leaning forward and during uilateral UE support. Pt donned LS corset in sitting EOB with max assist of 2. Exercises Quad Sets: x 10 Gluteal Sets: x 5 Knee Long Arc Quad: x 5 sitting Ankle Pumps: x 10 PROM to AAROM Comments: heel cord stretch BLE x 3 G-Code OutComes Score AM-PAC Score Goals Short term goals Time Frame for Short term goals: 2 weeks Short term goal 1: Log roll min of 1 for pelvic support; min of 1 supine to sit (OK for leg escrow secretary or manual support of LEs) - PROGRESSING Short term goal 2: Sitting EOB [birth year] Modified [place] - PROGRESSING Short term goal 3: Transfer board to w/c min of 1 - NOT MET Short term goal 4: Gross LLE antigravity strength 3-/5, RLE 2/5 - NOT MET Short term goal 5: pt/ family indep donning LSO - PROGRESSING long-term goals Time Frame for long-term goals : 4 weeks termite inspector goal 1: Bed mobility indep - PROGRESSING termite inspector goal 2: Bed to chair, any safe approach, supv - NOT ATTEMPTED long-term goal 3: Sit to stand mod of 1 - NOT MET long-term goal 4: Sitting balance modified [place] 06/07, standing 12/05 - PROGRESSING long-term goal 5: Amb 15', device, mod of 1 -NOT ATTEMPTED Patient Goals Patient goals : walk Plan Plan Times per week: 6 Plan weeks: 2 Current Treatment Recommendations: Strengthening, ROM, Balance Training, Transfer Training, Positioning, Neuromuscular Re-education, Functional Mobility Training Plan Comment: will have initial goals for immeidate mobility (transfers, w/c) and secondary goals (stance/ gait) Safety Devices Type of devices: Left in bed, Call light within reach, Nurse notified Therapy Time Individual Concurrent Group Co-treatment Time In 1015 Time Out 1100 Minutes 45 Timed Code Treatment Minutes: (1 TP, 2 FA) FRANCOIS Pride I agree with above corrections. This treatment session was completed by a student physical therapist certified medical assistant under the supervision of the cosigning therapist. Dori Candelario PTA\ * Sulaiman Youngblood MD - 12/23/2020 9:56 AM EDT S: Feeling the same as yesterday Vitals: 12/23/20 0848 BP: 112/74 Pulse: 73 Resp: Temp: SpO2: Ortho Post-Op Check Patient resting in bed. Legs feel like theyre waking up, Neuro Extremity Exam: Lower Extremity Motor: HF Q TA EHL GSC Right 1 1 0 1 0 Left 2 2 1 2 1 Lower extremity sensation to light touch: L2 L3 L4 L5 S1 Right Intact Intact Intact Intact Intact Left Intact Intact Intact Intact Intact POD 2 L1-2 PSDF & discectomy Plan -Weight bearing: AT -Drain in place, management per ortho -Drain to remain until output <40cc/shift, 60 overnight, will likely pull 3 -Please empty and record output q shift -LSO brace to be worn with therapy, ok to be OOB without brace -Q4h BP checks, please page ortho if MAPs <75 -No return to OR planned -Keep silverlon dressing C/D/I until POD#10 -OK for diet from ortho standpoint -Hemoglobin check till post-op day #1 -Abx until drain removed -PT/OT -DVT prophylaxis - mobilize & SCDs -No anticoagulation until POD#3 -Medical management/pain control per 1 team -Flexeril -Decadron 6mg q6h x24hrs -F/u OP w/ Dr Martinez in 2-3 weeks, discharge instructions in AVS MAPs >75 Sulaiman Youngblood M.D. 12/23/2020 9:56 AM * Trixie Hayes DTR - 12/23/2020 9:32 AM EDT Nutrition rescreen completed. Chart reviewed. Patient to be monitored and followed by the diet all terrain vehicle technician. * Mayte Gunter MD - 12/22/2020 12:02 PM EDT Hospitalist Progress Note 12/22/2020 12:02 PM Subjective: Admit Date: 12/21/2020 PCP: No primary care provider on file. Interval History: No overnight issues. DIET GENERAL; I/O last 3 completed shifts: In: 2029 [P.O.:180; I.V.:1850] Out: 264 [Urine:2250; Drains:140; Blood:250] Date 12/22/20 - 12/22/202358 Shift 9271-3023 7725-3058 8008-1130 24 Hour Total INTAKE Shift Total(mL/kg) OUTPUT Urine(mL/kg/hr) 1250(1.9) 800 2049 Drains(mL/kg) 80(1) 50(0.6) 130(1.6) Shift Total(mL/kg) 1330(16.3) 850(10.4) 2180(26.7) Weight (kg) 81.6 81.6 81.6 81.6 Patient Vitals for the past 96 hrs (Last 3 readings): Weight 12/21/20 0430 180 lb (81.6 kg) Medications: lactated ringers 125 mL/hr at 12/21/20 2301 dextrose sodium chloride flush 10 mL Intravenous 2 times per day [Held by provider] enoxaparin 40 mg Subcutaneous Daily metoprolol succinate 25 mg Oral Daily insulin lispro 0-6 Units Subcutaneous Q4H glimepiride 2 mg Oral Daily before lunch thyroid 240 mg Oral Once per day on Thu And thyroid 120 mg Oral Once per day on Thu dexamethasone 6 mg Intravenous Q6H ceFAZolin 2,000 mg Intravenous Q8H Recent Labs 12/21/20 0528 WBC 15.7* HGB 15.1 PLT 332 Recent Labs 12/21/20 0528 NA 132* K 3.9 CL 99 CO2 26 BUN 15 CREATININE 0.42* GLUCOSE 311* No results for input(s): AST, ALT, ALB, BILITOT, ALKPHOS in the last 72 hours. No results found for: TRIG, HDL, LDLCALC, CHOL No results found for: PHART, PO2ART, [id number] Recent Labs 12/21/20 0528 INR 1.0 No results for input(s): CKTOTAL, CKMB, TROPONINI in the last 72 hours. No results for input(s): DDIMER in the last 72 hours. No components found for: HGBA1C No results found for: TSH Urine Culture: No results found for this or any previous visit. Objective: Vitals: BP (!) 149/73 Pulse 82 Temp 98.2 F (36.8 C) (Temporal) Resp 16 Ht 5' (1.524 m) Wt180 lb (81.6 kg) SpO2 93% BMI 35.15 kg/m Pulse Ox: SpO2 Av.4 % Min: 93 % Max: 100 % Supplemental O2: General appearance: alert and cooperative with exam Lungs: clear to auscultation bilaterally Heart: regular rate and rhythm, S1, S2 normal, no murmur, click, rub or gallop Abdomen: soft, non-tender; bowel sounds normal; no masses, no organomegaly Extremities: extremities normal, atraumatic, no cyanosis or edema Neurologic: No obvious focal neurologic deficits. Assessment Large central L1-2 disc herniation Back pain H/o COPD Past Medical History []Expand by Default Diagnosis Date Celiac disease Diabetes mellitus (HCC) H/O ulcerative colitis Irritable bowel syndrome PLAN: S/p L1-2 spine surgery. Ortho managing Drain in place Pain control Follow H&H Gentle IV hydration -january d/c if eating ok. Ortho to restart anticoagulation POD #3 PT/OT [facility] * Jimbo Campuzano, PT - 12/22/2020 11:30 AM EDT Physical Therapy Facility/Department: [facility] Initial Assessment NAME: Tia Blanco : 1955 Date of Service: 12/22/2020 Discharge Recommendations: IP Rehab PT Equipment Recommendations Equipment Needed: (TBD (possible w/c and transfer board in very short term)) Assessment Body structures, Functions, Activity limitations: Decreased functional mobility ;Decreased ROM;Decreased strength;Decreased balance;Increased pain;Decreased posture;Decreased coordination Assessment: Physician notes that pt had 0/5 zulma strength; PT found--on average- that LLE showed 2-/5and RLE 1/5 (RLE had greater deficits before). Pt has full discrimination, although admits RLE feels somewhat more asleep than LLE. Pt able to perform long sit and tripod sitting in bed. Will procure multipodus orthotics for now--consult to [employer] for LSO. Pt plans/ hopes to be discharged to [facility]--rehab level PT seems most appropriate. Prognosis: Fair Decision Making: High Complexity PT Education: Goals;PT Role;Plan of Care Patient Education: pt/ dtr had lots of questions relating to anatomy/ procedure--some answered, others deferred as more appropriate for physician to answer REQUIRES PT FOLLOW UP: Yes Activity Tolerance Activity Tolerance: Treatment limited secondary to medical complications (free text) Patient Diagnosis(es): There were no encounter diagnoses. has a past medical history of Celiac disease, Diabetes mellitus (HCC), H/O ulcerative colitis, and Irritable bowel syndrome. has a past surgical history that includes Cholecystectomy; Tonsillectomy; hernia repair; and other surgical history (12/21/2020). Restrictions Restrictions/Precautions Restrictions/Precautions: Fall Risk, Surgical Protocols Required Braces or Orthoses?: (pt has order for LSO (consult to [facility])) Position Activity Restriction Spinal Precautions: No Bending, No Lifting, No Twisting Other position/activity restrictions: Order reads OK for OOB without brace. Dtr mentions that physician mentioned ankle braces (PT comfortable with multipodus splints at present) Vision/Hearing Vision: Within Functional Limits Hearing: Within functional limits Subjective General Chart Reviewed: Yes Patient assessed for rehabilitation services?: Yes Family / Caregiver Present: Yes(dtr) Diagnosis: L1-L2 PSDF Follows Commands: Within Functional Limits General Comment Comments: Doll, hemovac drain, IV Subjective Subjective: Pt notes she has full sensation in zulma LEs. Pt notes she feels like some things are beginning to move in LEs, L more than R. She also notes she has a burning sensation in her vagina. She notes she had been functional up until she called squad to take her to [facility]. Pain Screening Patient Currently in Pain: Yes Pain Assessment Pain Assessment: 0-10 Pain Level: 6 Pain Type: Surgical pain Vital Signs Patient Currently in Pain: Yes Pre Treatment Pain Screening Comments / Details: pt notes sitting up in bed feels amazing. Stretching, especially zulma heel cords, also feels very good. 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 Pt had been using treadmill until within last month.Pt notes her trunk would flex to a certain point to help alleviate back pressure. Cognition Cognition Overall Cognitive Status: WNL Objective PROM RLE (degrees) RLE PROM: WFL AROM RLE (degrees) RLE General AROM: pt with trace quads; hip extn, ABD and ADD after stretches. Only toe extn at 2nd digit (trace PF after DF stretch) PROM LLE (degrees) LLE PROM: WFL AROM LLE (degrees) LLE General AROM: Pt with approx 5-10 deg toe extn (hallux lags), visible and palpable quad set (not enough strength to hold isometric SAQ), in attempting SAQ, pt engages both hip flexors and extensors. Hip ADD approx 15 deg active after stretch, Hip ABD approx 5 deg after stretch. AROM RUE (degrees) RUE AROM : WFL AROM LUE (degrees) LUE AROM : WFL Strength Other Other: DF R 0, L 1/5; PF R 1/5, L 2-/5; knee extn 1/5 zulma (more force on LLE), hip extn R 1/5, L 2-/5, ADD 2-/5 zulma, Hip flex R 0/5, L 1/5, ABD R 1/5, L 2-/5 Motor Control Gross Motor?: (could not elicit knee jerk; less passive resistance to ROM on RLE (mild hypotonicity) compared to L) Sensation Overall Sensation Status: (full sensation in zulma LEs) Bed mobility Comment: Pt able to sit up in modified long-sit and UEs in tripod position, supv. Had to dissuade rotation as pt was performing and was unable to have hips and knees in same plane as shldrs. Transfers Comment: did not trust LE to pivot--feel pt likely has sufficient UE strength for sliding board transfer--but unsure of torso control (would prefer to wait until after LSO for this) Ambulation Ambulation?: No Stairs/Curb Stairs?: No Balance Comments: long sit in bed able to be performed with tripod UE support Plan Plan Times per week: 6 Plan weeks: 2 Current Treatment Recommendations: Strengthening, ROM, Balance Training, Transfer Training, Positioning, Neuromuscular Re-education, Functional Mobility Training Plan Comment: will have initial goals for immeidate mobility (transfers, w/c) and secondary goals (stance/ gait) Safety Devices Type of devices: Left in bed, Call light within reach, Nurse notified(RN notified as IV with air-in-line) AM-PAC Score AM-PAC Inpatient Mobility Raw Score : 6 (12/22/20 1104) AM-PAC Inpatient T-Scale Score : 23.55 (12/22/20 110) Mobility Inpatient CMS 0-100% Score: 100 (12/22/20 110) Mobility Inpatient CMS G-Code Modifier : CN (12/22/201103) Goals Short term goals Time Frame for Short term goals: 2 weeks Short term goal 1: Log roll min of 1 for pelvic support; min of 1 supine to sit (OK for leg escrow secretary or manual support of LEs) Short term goal 2: Sitting EOB 6/10 Modified [place] Short term goal 3: Transfer board to w/c min of 1 Short term goal 4: Gross LLE antigravity strength 3-/5, RLE 2/5 Short term goal 5: pt/ family indep donning LSO termite inspector goals Time Frame for long-term goals : 4 weeks termite inspector goal 1: Bed mobility indep long-term goal 2: Bed to chair, any safe approach, supv long-term goal 3: Sit to stand mod of 1 termite inspector goal 4: Sitting balance modified [place] 9/10, standing 3/10 long-term goal 5: Amb 15', device, mod of 1 Patient Goals Patient goals : walk Therapy Time Individual Concurrent Group Co-treatment Time In 1026 Time Out 1104 Minutes 38 Patient s Physical Therapy Plan of Care supervision is transferred to [facility] Physical Therapist. PT wore N95 mask, goggles, and gloves throughout entire session with patient. Bradly Torres, SPT present. Jimbo Campuzano PT * Steve Martinez MD - 12/22/2020 9:32 AM EDT S: Feeling slightly better this AM, optimistic Vitals: 12/22/20 0900 BP: (!) 149/73 Pulse: 82 Resp: 16 Temp: 98.2 F (36.8 C) SpO2: 93% Ortho Post-Op Check Patient resting in bed. Legs feel like theyre waking up, Neuro Extremity Exam: Lower Extremity Motor: HF Q TA EHL GSC Right 1 1 0 1 0 Left 2 2 1 2 1 Lower extremity sensation to light touch: L2 L3 L4 L5 S1 Right Intact Intact Intact Intact Intact Left Intact Intact Intact Intact Intact POD 1 L1-2 PSDF & discectomy Plan -Weight bearing: AT -Drain in place, management per ortho -Drain to remain until output <40cc/shift -Please empty and record output q shift -Yanke c/s for LSO brace, also placed brace for AFO -LSO brace to be worn with therapy, ok to be OOB without brace -Q4h BP checks, please page ortho if MAPs <75 -No return to OR planned -Keep silverlon dressing C/D/I until POD#10 -OK for diet from ortho standpoint -Hemoglobin check till post-op day #1 -Abx until drain removed -PT/OT -DVT prophylaxis - mobilize & SCDs -No anticoagulation until POD#3 -Medical management/pain control per 1 team -Flexeril -Decadron 6mg q6h x24hrs -F/u OP w/ Dr Martinez in 2-3 weeks, discharge instructions in AVS Attending Attestation I have individually seen and evaluated the patient. I agree with the findings and the plan as documented in the resident's note. No issues on rounds later in the day Continue to work with physical therapy MAPs >75 Steve Martinez M.D. 12/22/2020 7:20 PM * Shilpi Rock MD - 12/22/2020 2:48 AM EDT Ortho Post-Op Check Patient resting in bed sleeping. Legs still feel the same. MAP at time of exam 85. Neuro Extremity Exam: Lower Extremity Motor: HF Q TA EHL GSC Right 0 0 0 0 0 Left 0 0 0 0 0 Lower extremity sensation to light touch: L2 L3 L4 L5 S1 Right Intact Intact Intact Intact Intact Left Intact Intact Intact Intact Intact *essentially, only motion of lower extremities is coming proximally from hip ROM DP palpable bilaterally Plan -Weight bearing: AT -Drain in place, management per ortho -Drain to remain until output <40cc/shift -Please empty and record output q shift -Yanke c/s for LSO brace -LSO brace to be worn with therapy, ok to be OOB without brace -Q4h BP checks, please page ortho if MAPs <75 -No return to OR planned -Keep silverlon dressing C/D/I until POD#10 -OK for diet from ortho standpoint -Hemoglobin check till post-op day #1 -Abx until drain removed -PT/OT -DVT prophylaxis - mobilize & SCDs -No anticoagulation until POD#3 -Medical management/pain control per 1 team -Flexeril -Decadron 6mg q6h x24hrs -F/u OP w/ Dr Martinez in 2-3 weeks, discharge instructions in AVS * Shilpi Rock MD - 12/21/2020 11:15 PM EDT Ortho Post-Op Check Patient resting in bed. Feels like her legs are heavy, states she cannot move them but can feel them. Denies significant pain, just feels like her back is sticking to the bed. MAP >100 at this time. Neuro Extremity Exam: Lower Extremity Motor: HF Q TA EHL GSC Right 0 0 0 0 0 Left 0 0 0 0 0 Lower extremity sensation to light touch: L2 L3 L4 L5 S1 Right Intact Intact Intact Intact Intact Left Intact Intact Intact Intact Intact *essentially, only motion of lower extremities is coming proximally from hip ROM DP palpable bilaterally Plan -Weight bearing: AT -Drain in place, management per ortho -Drain to remain until output <40cc/shift -Please empty and record output q shift -Yanke c/s for LSO brace -LSO brace to be worn with therapy, ok to be OOB without brace -Q4h BP checks, please page ortho if MAPs <75 -No return to OR planned -Keep silverlon dressing C/D/I until POD#10 -OK for diet from ortho standpoint -Hemoglobin check till post-op day #1 -Abx until drain removed -PT/OT -DVT prophylaxis - mobilize & SCDs -No anticoagulation until POD#3 -Medical management/pain control per 1 team -Flexeril -Decadron 6mg q6h x24hrs -F/u OP w/ Dr Martinez in 2-3 weeks, discharge instructions in AVS * Karen Dover RN - 12/21/2020 10:14 PM EDT Spoke to Dtr Alicia on phone update given she is back in her hotel room and will see pt tomorrow am * Karen Dover RN - 12/21/2020 8:[address] Martinez at bedside Pt still groggy and unable to wiggle toes or lift leg yet Pt able to grasp hands. Dr Martinez states he will have someone (resident) check on pt tonight Dr Hyatt notified earlierof BS 298 Orderds obtained documented in this encounter Assessments Diagnosis Lumbar disc herniation Displacement of lumbar intervertebral disc without myelopathy Advance Directives No Advanced Directives Records FoundLatest Code Status on File Code Status Date Activated Date Inactivated Comments Full Code 12/21/2020 3:31 AM Summary Purpose Family History No Family History Records Found No data available for this section No Family History Records FoundNo Family History Records Found Reason for Referral Specialty Diagnoses / Procedures Referred By Contac t Referred To Contact Diagnoses Uncontrolled type 2 diabetes mellitus with hyperglycemia (HCC) Leah Rivero, [place].TECHNICAL COMMUNICATOR [address] [place] [address] Referral ID Status Reason Start Date Expiration Date Visits Re quested Visits Authorized [id number] Denied 1 1 Specialty Diagnoses / Procedures Referred By Contac t Referred To Contact Cardiology Diagnoses Uncontrolled type 2 diabetes mellitus with hyperglycemia (HCC) Nonrheumatic aortic valve stenosis Hyperlipidemia, mixed Procedures CONSULT TO CARDIOLOGY OFFICE/OUTPATIENT NEW HIGH MDM 60 MINUTES Preet Farrar L, DO [address] [place] [address] Referral ID Status Reason Start Date Expiration Date Visits Requested Visits Authorized [id number] Authorized PCP Requested Referral 12/09/2023 12/08/2024 1 1 Specialty Diagnoses / Procedures Referred By Contac t Referred To Contact Diagnoses Uncontrolled type 2 diabetes mellitus with hyperglycemia (HCC) Vaginal yeast infection Jacqueline Candelario, INFRASTRUCTURE DESIGN ENGINEER.TECHNICAL COMMUNICATOR [address] [place] [address] Referral ID Status Reason Start Date Expiration Date V isits Requested Visits Authorized [id number] Authorized 01/27/2024 09/27/2024 1 1 Specialty Diagnoses / Procedures Referred By Contac t Referred To Contact Endocrinology Diagnoses Uncontrolled type 2 diabetes mellitus with hyperglycemia (HCC) Procedures CONSULT TO ENDOCRINOLOGY OFFICE/OUTPATIENT NEW HIGH MDM 60 MINUTES Preet Farrar, DO [address] [place] [address] Referral ID Status Reason Start Date Expiration Date Visits Requested Visits Authorized [id number] Authorized PCP Requested Referral 03/21/2024 03/21/2025 1 1 Specialty Diagnoses / Procedures Referred By Contac t Referred To Contact Gynecology Diagnoses LLQ pain Thickened endometrium Procedures CONSULT TO GYNECOLOGY OFFICE/OUTPATIENT NEW HIGH MDM 60 MINUTES Catalina Young INFRASTRUCTURE DESIGN ENGINEER.TECHNICAL COMMUNICATOR [address] [place] [address] Referral ID Status Reason Start Date Expiration Date Visits Requested Visits Authorized [id number] Authorized PCP Requested Referral Auto-Generate d Referral 05/25/2024 05/25/2025 1 1 Additional Source Comments Reason for Visit (unrecogniz ed section and content) Reason Comments Reason Comments Insurance Authorization Reason Comments Pain (LT) ankle pain rate d 7, onset 01/23/2022, denied fall, reported twisted Specialty Diagnoses / Procedures Referred By Contac t Referred To Contact Family Practice / URGENT CARE CLINIC Diagnoses Left ankle sprain Procedures URGENT CARE Self Nataly Ryan APRN.TECHNICAL COMMUNICATOR [address] [place] [address] Referral ID Status Reason Start Date Expiration Date Visits Re quested Visits Authorized [id number] Closed 01/23/2022 09/27/2022 1 1 Reason Comments New Patient Fracture Specialty Diagnoses / Procedures Referred By Contac t Referred To Contact Podiatry / PODIATRY Diagnoses foot fracture Procedures PANCHITO NEW FRACTURE Nataly Ryan APRN.TECHNICAL COMMUNICATOR [address] [place] [address] Steve Rodriguez [address] [place] [address] Referral ID Status Reason Start Date Expiration Date Visits Re quested Visits Authorized [id number] Closed 01/30/2022 09/27/2022 1 1 Reason Comments Blood Pressure Specialty Diagnoses / Procedures Referred By Contac t Referred To Contact Family Practice / FAMILY MEDICINE Diagnoses Elevated BP. UC f/u 01-23, left ankle fracture. Procedures 4C EST Self Leah Rivero APRN.TECHNICAL COMMUNICATOR [address] [place] [address] Referral ID Status Reason Start Date Expiration Date Visits Re quested Visits Authorized [id number] Closed 01/31/2022 09/27/2022 1 1 Reason Comments Follow Up Specialty Diagnoses / Procedures Referred By Contac t Referred To Contact Family Practice / FAMILY MEDICINE Diagnoses Follow up BP, Thyroid Procedures 4C EST Preet Farrar, DO [address] [place] [address] Preet Farrar, DO [address] [place] [address] Referral ID Status Reason Start Date Expiration Date Visits Re quested Visits Authorized [id number] Closed 02/19/2022 09/27/2022 1 1 Reason Onset Date Comments Refill Request 02/20/2022 Reason Comments Results Reason Comments Patient Question Patient Update Reason Comments Patient Question Reason Onset Date Comments Refill Request 04/02/2022 Reason Comments Refill Request Reason Onset Date Comments Refill Request 05/28/2022 Reason Onset Date Comments Refill Request 08/27/2022 Reason Comments Patient Question Orders Reason Onset Date Comments Refill Request 10/08/2022 Reason Comments Foot Deformity Reason Comments hospital f/up Reason Comments F/U 3 Month Reason Comments Patient Update Reason Comments Medication Problem Patient Update Reason Onset Date Comments Refill Request 03/03/2023 Reason Comments Oblong thyroid PA Reason Comments go over blood sugars and diet Reason Comments medication issue Reason Onset Date Comments Refill Request 05/18/2023 Reason Comments Follow Up 3 months- DM Reason Comments b/s high yesterday and today This nathan walker b?s was 259, she states been nauseated and lft eye cloudy Reason Comments Hospital F/U Virus, pt recently h ad a fall due to dizziness, reports in scanned docs. Reason Comments Medication Problem Reason Comments Call from Dr. Stapleton, Neurologist Reason Onset Date Comments Population Health Navigation Outreach 07/29/2023 [facility] care gap Reason Comments Medication Question Reason Comments b/p running high last few days Reason Comments Hypertension Reason Comments Medication Request Reason Onset Date Comments Refill Request 12/08/2023 Reason Comments vaginal symptoms Reason Comments Vaginal Problem itching x this am, s witched glucose medication and changed toilet paper Reason Onset Date Comments Refill Request 01/06/2024 Reason Comments blood sugars up and down States does not know how to eat keeps going up after eating. Reason Comments Medication Problem yeast infection again Reason Comments follow up on b/s States thinks yeast infection back which is a large side effect of Jardiance. States not going to keep going through this Reason Onset Date Comments Refill Request 02/02/2024 Reason Comments Blood Sugar Readings Reason Onset Date Comments Refill Request 02/29/2024 Reason Onset Date Comments Transition Of Care 03/10/2024 Reason Comments Transition Of Care Reason Comments Insulin Witt Reason Comments Patient Update Blood Sugar Readings Reason Comments Type 2 Diabetes Reason Comments Future Appointment Reason Onset Date Comments Refill Request 05/23/2024 Reason Comments ER F/U 05/22/2024 [facility] for le ft lower quadrant pain Reason Onset Date Comments Refill Request 06/15/2024 Reason Onset Date Comments Refill Request 06/17/2024 Reason Comments Faxed Labs Surgical Clearance Forms Ordered Prescriptions (unrec ognized section and content) Prescription Sig Dispensed Refills Start Date End Da te thyroid (ARMOUR) 60 MG tablet Take 2 tablets by mouth daily On Wednesdays and Saturdays, take 240 mg 30 tablet 3 12/28/2020 cyclobenzaprine (FLEXERIL) 10 MG tablet Take 1 tablet by mouth 3 times daily as needed for Muscle spasms 0 12/26/2020 01/05/2021 gabapentin (NEURONTIN) 300 MG capsule Take 1 capsule by mouth 3 times daily for 7 days. 90 capsule 3 12/26/2020 01/02/2021 INFORMATION SOURCE (unrecogn ized section and content) DATE CREATED AUTHOR 09/18/2021 [employer] DATE CREATED AUTHOR AUTHOR'S ORGANIZ ATION 12/20/2023 [facility] ([place]) DATE CREATED AUTHOR AUTHOR'S ORGANIZ ATION 07/26/2024 [facility] Source Comments (unrecognize d section and content) In the event this informatio n is protected by the Federal Confidentiality of Alcohol and Drug Abuse Patient Records regulations: The Federal rules restrict any use of the information to criminally investigate or prosecute any alcohol or drug abuse patient.[facility] Hospital[facility] the event this information is protected by the Federal Confidentiality of Alcohol and Drug Abuse Patient Records regulations: The Federal rules restrict any use of the information to criminally investigate or prosecute any alcohol or drug abuse patient.[facility] HospitalIn the event this information is protected by the Federal Confidentiality of Alcohol and Drug Abuse Patient Records regulations: The Federal rules restrict any use of the information to criminally investigate or prosecute any alcohol or drug abuse patient.[facility] HospitalIn the event this information is protected by the Federal Confidentiality of Alcohol and Drug Abuse Patient Records regulations: The Federal rules restrict any use of the information to criminally investigate or prosecute any alcohol or drug abuse patient.[facility] HospitalIn the event this information is protected by the Federal Confidentiality of Alcohol and Drug Abuse Patient Records regulations: The Federal rules restrict any use of the information to criminally investigate or prosecute any alcohol or drug abuse patient.[facility] HospitalIn the event this information is protected by the Federal Confidentiality of Alcohol and Drug Abuse Patient Records regulations: The Federal rules restrict any use of the information to criminally investigate or prosecute any alcohol or drug abuse patient.[facility] HospitalIn the event this information is protected by the Federal Confidentiality of Alcohol and Drug Abuse Patient Records regulations: The Federal rules restrict any use of the information to criminally investigate or prosecute any alcohol or drug abuse patient.[facility] HospitalIn the event this information is protected by the Federal Confidentiality of Alcohol and Drug Abuse Patient Records regulations: The Federal rules restrict any use of the information to criminally investigate or prosecute any alcohol or drug abuse patient.[facility] HospitalIn the event this information is protected by the Federal Confidentiality of Alcohol and Drug Abuse Patient Records regulations: The Federal rules restrict any use of the information to criminally investigate or prosecute any alcohol or drug abuse patient.[facility] HospitalIn the event this information is protected by the Federal Confidentiality of Alcohol and Drug Abuse Patient Records regulations: The Federal rules restrict any use of the information to criminally investigate or prosecute any alcohol or drug abuse patient.[facility] HospitalIn the event this information is protected by the Federal Confidentiality of Alcohol and Drug Abuse Patient Records regulations: The Federal rules restrict any use of the information to criminally investigate or prosecute any alcohol or drug abuse patient.[facility] HospitalIn the event this information is protected by the Federal Confidentiality of Alcohol and Drug Abuse Patient Records regulations: The Federal rules restrict any use of the information to criminally investigate or prosecute any alcohol or drug abuse patient.[facility] HospitalIn the event this information is protected by the Federal Confidentiality of Alcohol and Drug Abuse Patient Records regulations: The Federal rules restrict any use of the information to criminally investigate or prosecute any alcohol or drug abuse patient.[facility] HospitalIn the event this information is protected by the Federal Confidentiality of Alcohol and Drug Abuse Patient Records regulations: The Federal rules restrict any use of the information to criminally investigate or prosecute any alcohol or drug abuse patient.[facility] HospitalIn the event this information is protected by the Federal Confidentiality of Alcohol and Drug Abuse Patient Records regulations: The Federal rules restrict any use of the information to criminally investigate or prosecute any alcohol or drug abuse patient.[facility] HospitalIn the event this information is protected by the Federal Confidentiality of Alcohol and Drug Abuse Patient Records regulations: The Federal rules restrict any use of the information to criminally investigate or prosecute any alcohol or drug abuse patient.[facility] HospitalIn the event this information is protected by the Federal Confidentiality of Alcohol and Drug Abuse Patient Records regulations: The Federal rules restrict any use of the information to criminally investigate or prosecute any alcohol or drug abuse patient.[facility] HospitalIn the event this information is protected by the Federal Confidentiality of Alcohol and Drug Abuse Patient Records regulations: The Federal rules restrict any use of the information to criminally investigate or prosecute any alcohol or drug abuse patient.[facility] HospitalIn the event this information is protected by the Federal Confidentiality of Alcohol and Drug Abuse Patient Records regulations: The Federal rules restrict any use of the information to criminally investigate or prosecute any alcohol or drug abuse patient.[facility] HospitalIn the event this information is protected by the Federal Confidentiality of Alcohol and Drug Abuse Patient Records regulations: The Federal rules restrict any use of the information to criminally investigate or prosecute any alcohol or drug abuse patient.[facility] HospitalIn the event this information is protected by the Federal Confidentiality of Alcohol and Drug Abuse Patient Records regulations: The Federal rules restrict any use of the information to criminally investigate or prosecute any alcohol or drug abuse patient.[facility] HospitalIn the event this information is protected by the Federal Confidentiality of Alcohol and Drug Abuse Patient Records regulations: The Federal rules restrict any use of the information to criminally investigate or prosecute any alcohol or drug abuse patient.[facility] HospitalIn the event this information is protected by the Federal Confidentiality of Alcohol and Drug Abuse Patient Records regulations: The Federal rules restrict any use of the information to criminally investigate or prosecute any alcohol or drug abuse patient.[facility] HospitalIn the event this information is protected by the Federal Confidentiality of Alcohol and Drug Abuse Patient Records regulations: The Federal rules restrict any use of the information to criminally investigate or prosecute any alcohol or drug abuse patient.[facility] HospitalIn the event this information is protected by the Federal Confidentiality of Alcohol and Drug Abuse Patient Records regulations: The Federal rules restrict any use of the information to criminally investigate or prosecute any alcohol or drug abuse patient.[facility] HospitalIn the event this information is protected by the Federal Confidentiality of Alcohol and Drug Abuse Patient Records regulations: The Federal rules restrict any use of the information to criminally investigate or prosecute any alcohol or drug abuse patient.[facility] HospitalIn the event this information is protected by the Federal Confidentiality of Alcohol and Drug Abuse Patient Records regulations: The Federal rules restrict any use of the information to criminally investigate or prosecute any alcohol or drug abuse patient.[facility] HospitalIn the event this information is protected by the Federal Confidentiality of Alcohol and Drug Abuse Patient Records regulations: The Federal rules restrict any use of the information to criminally investigate or prosecute any alcohol or drug abuse patient.[facility] HospitalIn the event this information is protected by the Federal Confidentiality of Alcohol and Drug Abuse Patient Records regulations: The Federal rules restrict any use of the information to criminally investigate or prosecute any alcohol or drug abuse patient.[facility] HospitalIn the event this information is protected by the Federal Confidentiality of Alcohol and Drug Abuse Patient Records regulations: The Federal rules restrict any use of the information to criminally investigate or prosecute any alcohol or drug abuse patient.[facility] HospitalIn the event this information is protected by the Federal Confidentiality of Alcohol and Drug Abuse Patient Records regulations: The Federal rules restrict any use of the information to criminally investigate or prosecute any alcohol or drug abuse patient.[facility] HospitalIn the event this information is protected by the Federal Confidentiality of Alcohol and Drug Abuse Patient Records regulations: The Federal rules restrict any use of the information to criminally investigate or prosecute any alcohol or drug abuse patient.[facility] HospitalIn the event this information is protected by the Federal Confidentiality of Alcohol and Drug Abuse Patient Records regulations: The Federal rules restrict any use of the information to criminally investigate or prosecute any alcohol or drug abuse patient.[facility] HospitalIn the event this information is protected by the Federal Confidentiality of Alcohol and Drug Abuse Patient Records regulations: The Federal rules restrict any use of the information to criminally investigate or prosecute any alcohol or drug abuse patient.[facility] HospitalIn the event this information is protected by the Federal Confidentiality of Alcohol and Drug Abuse Patient Records regulations: The Federal rules restrict any use of the information to criminally investigate or prosecute any alcohol or drug abuse patient.[facility] HospitalIn the event this information is protected by the Federal Confidentiality of Alcohol and Drug Abuse Patient Records regulations: The Federal rules restrict any use of the information to criminally investigate or prosecute any alcohol or drug abuse patient.[facility] HospitalIn the event this information is protected by the Federal Confidentiality of Alcohol and Drug Abuse Patient Records regulations: The Federal rules restrict any use of the information to criminally investigate or prosecute any alcohol or drug abuse patient.[facility] HospitalIn the event this information is protected by the Federal Confidentiality of Alcohol and Drug Abuse Patient Records regulations: The Federal rules restrict any use of the information to criminally investigate or prosecute any alcohol or drug abuse patient.[facility] HospitalIn the event this information is protected by the Federal Confidentiality of Alcohol and Drug Abuse Patient Records regulations: The Federal rules restrict any use of the information to criminally investigate or prosecute any alcohol or drug abuse patient.[facility] HospitalIn the event this information is protected by the Federal Confidentiality of Alcohol and Drug Abuse Patient Records regulations: The Federal rules restrict any use of the information to criminally investigate or prosecute any alcohol or drug abuse patient.[facility] HospitalIn the event this information is protected by the Federal Confidentiality of Alcohol and Drug Abuse Patient Records regulations: The Federal rules restrict any use of the information to criminally investigate or prosecute any alcohol or drug abuse patient.[facility] HospitalIn the event this information is protected by the Federal Confidentiality of Alcohol and Drug Abuse Patient Records regulations: The Federal rules restrict any use of the information to criminally investigate or prosecute any alcohol or drug abuse patient.[facility] HospitalIn the event this information is protected by the Federal Confidentiality of Alcohol and Drug Abuse Patient Records regulations: The Federal rules restrict any use of the information to criminally investigate or prosecute any alcohol or drug abuse patient.[facility] HospitalIn the event this information is protected by the Federal Confidentiality of Alcohol and Drug Abuse Patient Records regulations: The Federal rules restrict any use of the information to criminally investigate or prosecute any alcohol or drug abuse patient.[facility] HospitalIn the event this information is protected by the Federal Confidentiality of Alcohol and Drug Abuse Patient Records regulations: The Federal rules restrict any use of the information to criminally investigate or prosecute any alcohol or drug abuse patient.[facility] HospitalIn the event this information is protected by the Federal Confidentiality of Alcohol and Drug Abuse Patient Records regulations: The Federal rules restrict any use of the information to criminally investigate or prosecute any alcohol or drug abuse patient.[facility] HospitalIn the event this information is protected by the Federal Confidentiality of Alcohol and Drug Abuse Patient Records regulations: The Federal rules restrict any use of the information to criminally investigate or prosecute any alcohol or drug abuse patient.[facility] HospitalIn the event this information is protected by the Federal Confidentiality of Alcohol and Drug Abuse Patient Records regulations: The Federal rules restrict any use of the information to criminally investigate or prosecute any alcohol or drug abuse patient.[facility] HospitalIn the event this information is protected by the Federal Confidentiality of Alcohol and Drug Abuse Patient Records regulations: The Federal rules restrict any use of the information to criminally investigate or prosecute any alcohol or drug abuse patient.[facility] HospitalIn the event this information is protected by the Federal Confidentiality of Alcohol and Drug Abuse Patient Records regulations: The Federal rules restrict any use of the information to criminally investigate or prosecute any alcohol or drug abuse patient.[facility] HospitalIn the event this information is protected by the Federal Confidentiality of Alcohol and Drug Abuse Patient Records regulations: The Federal rules restrict any use of the information to criminally investigate or prosecute any alcohol or drug abuse patient.[facility] HospitalIn the event this information is protected by the Federal Confidentiality of Alcohol and Drug Abuse Patient Records regulations: The Federal rules restrict any use of the information to criminally investigate or prosecute any alcohol or drug abuse patient.[facility] HospitalIn the event this information is protected by the Federal Confidentiality of Alcohol and Drug Abuse Patient Records regulations: The Federal rules restrict any use of the information to criminally investigate or prosecute any alcohol or drug abuse patient.[facility] HospitalIn the event this information is protected by the Federal Confidentiality of Alcohol and Drug Abuse Patient Records regulations: The Federal rules restrict any use of the information to criminally investigate or prosecute any alcohol or drug abuse patient.[facility] HospitalIn the event this information is protected by the Federal Confidentiality of Alcohol and Drug Abuse Patient Records regulations: The Federal rules restrict any use of the information to criminally investigate or prosecute any alcohol or drug abuse patient.[facility] HospitalIn the event this information is protected by the Federal Confidentiality of Alcohol and Drug Abuse Patient Records regulations: The Federal rules restrict any use of the information to criminally investigate or prosecute any alcohol or drug abuse patient.[facility] HospitalIn the event this information is protected by the Federal Confidentiality of Alcohol and Drug Abuse Patient Records regulations: The Federal rules restrict any use of the information to criminally investigate or prosecute any alcohol or drug abuse patient.[facility] HospitalIn the event this information is protected by the Federal Confidentiality of Alcohol and Drug Abuse Patient Records regulations: The Federal rules restrict any use of the information to criminally investigate or prosecute any alcohol or drug abuse patient.[facility] HospitalIn the event this information is protected by the Federal Confidentiality of Alcohol and Drug Abuse Patient Records regulations: The Federal rules restrict any use of the information to criminally investigate or prosecute any alcohol or drug abuse patient.[facility] HospitalIn the event this information is protected by the Federal Confidentiality of Alcohol and Drug Abuse Patient Records regulations: The Federal rules restrict any use of the information to criminally investigate or prosecute any alcohol or drug abuse patient.[facility] HospitalIn the event this information is protected by the Federal Confidentiality of Alcohol and Drug Abuse Patient Records regulations: The Federal rules restrict any use of the information to criminally investigate or prosecute any alcohol or drug abuse patient.[facility] HospitalIn the event this information is protected by the Federal Confidentiality of Alcohol and Drug Abuse Patient Records regulations: The Federal rules restrict any use of the information to criminally investigate or prosecute any alcohol or drug abuse patient.[facility] HospitalIn the event this information is protected by the Federal Confidentiality of Alcohol and Drug Abuse Patient Records regulations: The Federal rules restrict any use of the information to criminally investigate or prosecute any alcohol or drug abuse patient.[facility] HospitalIn the event this information is protected by the Federal Confidentiality of Alcohol and Drug Abuse Patient Records regulations: The Federal rules restrict any use of the information to criminally investigate or prosecute any alcohol or drug abuse patient.[facility] HospitalIn the event this information is protected by the Federal Confidentiality of Alcohol and Drug Abuse Patient Records regulations: The Federal rules restrict any use of the information to criminally investigate or prosecute any alcohol or drug abuse patient.[facility] HospitalIn the event this information is protected by the Federal Confidentiality of Alcohol and Drug Abuse Patient Records regulations: The Federal rules restrict any use of the information to criminally investigate or prosecute any alcohol or drug abuse patient.[facility] HospitalIn the event this information is protected by the Federal Confidentiality of Alcohol and Drug Abuse Patient Records regulations: The Federal rules restrict any use of the information to criminally investigate or prosecute any alcohol or drug abuse patient.[facility] HospitalIn the event this information is protected by the Federal Confidentiality of Alcohol and Drug Abuse Patient Records regulations: The Federal rules restrict any use of the information to criminally investigate or prosecute any alcohol or drug abuse patient.[facility] HospitalIn the event this information is protected by the Federal Confidentiality of Alcohol and Drug Abuse Patient Records regulations: The Federal rules restrict any use of the information to criminally investigate or prosecute any alcohol or drug abuse patient.[facility] HospitalIn the event this information is protected by the Federal Confidentiality of Alcohol and Drug Abuse Patient Records regulations: The Federal rules restrict any use of the information to criminally investigate or prosecute any alcohol or drug abuse patient.[facility] HospitalIn the event this information is protected by the Federal Confidentiality of Alcohol and Drug Abuse Patient Records regulations: The Federal rules restrict any use of the information to criminally investigate or prosecute any alcohol or drug abuse patient.[facility] HospitalIn the event this information is protected by the Federal Confidentiality of Alcohol and Drug Abuse Patient Records regulations: The Federal rules restrict any use of the information to criminally investigate or prosecute any alcohol or drug abuse patient.[facility] HospitalIn the event this information is protected by the Federal Confidentiality of Alcohol and Drug Abuse Patient Records regulations: The Federal rules restrict any use of the information to criminally investigate or prosecute any alcohol or drug abuse patient.[facility] HospitalIn the event this information is protected by the Federal Confidentiality of Alcohol and Drug Abuse Patient Records regulations: The Federal rules restrict any use of the information to criminally investigate or prosecute any alcohol or drug abuse patient.[facility] HospitalIn the event this information is protected by the Federal Confidentiality of Alcohol and Drug Abuse Patient Records regulations: The Federal rules restrict any use of the information to criminally investigate or prosecute any alcohol or drug abuse patient.[facility] HospitalIn the event this information is protected by the Federal Confidentiality of Alcohol and Drug Abuse Patient Records regulations: The Federal rules restrict any use of the information to criminally investigate or prosecute any alcohol or drug abuse patient.[facility] HospitalIn the event this information is protected by the Federal Confidentiality of Alcohol and Drug Abuse Patient Records regulations: The Federal rules restrict any use of the information to criminally investigate or prosecute any alcohol or drug abuse patient.[facility] HospitalIn the event this information is protected by the Federal Confidentiality of Alcohol and Drug Abuse Patient Records regulations: The Federal rules restrict any use of the information to criminally investigate or prosecute any alcohol or drug abuse patient.[facility] HospitalIn the event this information is protected by the Federal Confidentiality of Alcohol and Drug Abuse Patient Records regulations: The Federal rules restrict any use of the information to criminally investigate or prosecute any alcohol or drug abuse patient.[facility] Care Teams (unrecognized sec tion and content) Nurse Technician Relationship Specialty Start Date End Date Preet Farrar, DO [address] [facility] [place] [address] PCP - General Family Practice 11/16/13 Nurse Technician Relationship Specialty Start Date End Date Preet Farrar, DO [address] [facility] [place] [address] PCP - General Family Practice 11/16/13 Nurse Technician Relationship Specialty Start Date End Date Preet Farrar, DO [address] [facility] [place] [address] PCP - General Family Practice 11/16/13 Nurse Technician Relationship Specialty Start Date End Date Preet Farrra, DO [address] [facility] [place] [address] PCP - General Family Practice 11/16/13 Nurse Technician Relationship Specialty Start Date End Date Preet Farrar, DO [address] [facility] [place] [address] PCP - General Family Practice 11/16/13 Nurse Technician Relationship Specialty Start Date End Date Preet Farrar, DO [address] [place] [address] PCP - General Family Practice 11/16/13 Nurse Technician Relationship Specialty Start Date End Date Preet Farrar, DO [address] [facility] [place] [address] PCP - General Family Practice 11/16/13 Nurse Technician Relationship Specialty Start Date End Date Preet Farrar, DO [address] [facility] [place] [address] PCP - General Family Practice 11/16/13 Nurse Technician Relationship Specialty Start Date End Date Preet Farrar, DO [address] [place] [address] PCP - General Family Practice 11/16/13 Nurse Technician Relationship Specialty Start Date End Date Preet Farrar, DO [address] [place] [address] PCP - General Family Practice 11/16/13 Nurse Technician Relationship Specialty Start Date End Date Preet Farrar, DO [address] [place] [address] PCP - General Family Practice 11/16/13 Nurse Technician Relationship Specialty Start Date End Date Preet Farrar, DO [address] [place] [address] PCP - General Family Practice 11/16/13 Nurse Technician Relationship Specialty Start Date End Date Preet Farrar, DO [address] [place] [address] PCP - General Family Practice 11/16/13 Nurse Technician Relationship Specialty Start Date End Date Preet Farrar, DO [address] [place] [address] PCP - General Family Practice 11/16/13 Nurse Technician Relationship Specialty Start Date End Date Preet Farrar, DO [address] [place] [address] PCP - General Family Practice 11/16/13 Nurse Technician Relationship Specialty Start Date End Date Preet Farrar, DO [address] [place] [address] PCP - General Family Medicine 11/16/13 Nurse Technician Relationship Specialty Start Date End Date Preet Farrar, DO [address] [place] [address] PCP - General Family Medicine 11/16/13 Nurse Technician Relationship Specialty Start Date End Date Preet Farrar, DO [address] [place] [address] PCP - General Family Medicine 11/16/13 Nurse Technician Relationship Specialty Start Date End Date Preet Farrar, DO [address] [place] [address] PCP - General Family Medicine 11/16/13 Nurse Technician Relationship Specialty Start Date End Date Preet Farrar, DO [address] [place] [address] PCP - General Family Medicine 11/16/13 Nurse Technician Relationship Specialty Start Date End Date Preet Farrar, DO [address] [place] [address] PCP - General Family Medicine 11/16/13 Nurse Technician Relationship Specialty Start Date End Date Preet Farrar, DO [address] [place] [address] PCP - General Family Medicine 11/16/13 Nurse Technician Relationship Specialty Start Date End Date Preet Farrar, DO [address] [place] [address] PCP - General Family Medicine 11/16/13 Nurse Technician Relationship Specialty Start Date End Date Preet Farrar, DO [address] [place] [address] PCP - General Family Medicine 11/16/13 Nurse Technician Relationship Specialty Start Date End Date Preet Farrar, DO [address] [place] [address] PCP - General Family Medicine 11/16/13 Nurse Technician Relationship Specialty Start Date End Date Preet Farrar DO [address] [place] [address] PCP - General Family Medicine 11/16/13 Nurse Technician Relationship Specialty Start Date End Date Preet Farrar DO [address] [facility] [place] [address] PCP - General Family Medicine 11/16/13 Nurse Technician Relationship Specialty Start Date End Date Preet Farrar DO [address] [facility] [place] [address] PCP - General Family Medicine 11/16/13 Nurse Technician Relationship Specialty Start Date End Date Preet Farrar DO [address] [place] [address] PCP - General Family Medicine 11/16/13 Nurse Technician Relationship Specialty Start Date End Date Preet Farrar DO [address] [facility] [place] [address] PCP - General Family Medicine 11/16/13 Nurse Technician Relationship Specialty Start Date End Date Preet Farrar DO [address] [facility] [place] [address] PCP - General Family Medicine 11/16/13 Nurse Technician Relationship Specialty Start Date End Date Preet Farrra DO [address] [facility] [place] [address] PCP - General Family Medicine 11/16/13 Nurse Technician Relationship Specialty Start Date End Date Preet Farrar DO [address] [facility] [place] [address] PCP - General Family Medicine 11/16/13 Nurse Technician Relationship Specialty Start Date End Date Preet Farrar DO [address] [facility] [place] [address] PCP - General Family Medicine 11/16/13 Nurse Technician Relationship Specialty Start Date End Date Preet Farrar DO [address] [facility] [place] [place] [address] PCP - General Family Medicine 11/16/13 Nurse Technician Relationship Specialty Start Date End Date Preet Farrar DO [address] [facility] [place] [address] PCP - General Family Medicine 11/16/13 Nurse Technician Relationship Specialty Start Date End Date Preet Farrar DO [address] [facility] [place] [address] PCP - General Family Medicine 11/16/13 Nurse Technician Relationship Specialty Start Date End Date Preet Farrar DO [address] [facility] [place] [address] PCP - General Family Medicine 11/16/13 Nurse Technician Relationship Specialty Start Date End Date Preet Farrar DO [address] [facility] [place] [address] PCP - General Family Medicine 11/16/13 Nurse Technician Relationship Specialty Start Date End Date Preet Farrar DO [address] [facility] [place] [address] PCP - General Family Medicine 11/16/13 Nurse Technician Relationship Specialty Start Date End Date Preet Farrar DO [address] [facility] [place] [address] PCP - General Family Medicine 11/16/13 Nurse Technician Relationship Specialty Start Date End Date Preet Farrar, DO [address] [facility] [place] [address] PCP - General Family Medicine 11/16/13 Nurse Technician Relationship Specialty Start Date End Date Preet Farrar, DO [address] [facility] [place] [address] PCP - General Family Medicine 11/16/13 Nurse Technician Relationship Specialty Start Date End Date Preet Farrar, [address] [facility] [place] [address] PCP - General Family Medicine 11/16/13 Nurse Technician Relationship Specialty Start Date End Date Preet Farrar DO [address] [facility] [place] [address] PCP - General Family Medicine 11/16/13 Nurse Technician Relationship Specialty Start Date End Date Preet Farrar DO [address] [place] [address] PCP - General Family Medicine 11/16/13 Nurse Technician Relationship Specialty Start Date End Date Preet Farrar, [address] [place] [address] PCP - General Family Medicine 11/16/13 Nurse Technician Relationship Specialty Start Date End Date Preet Farrar DO [address] [facility] [place] [address] PCP - General Family Medicine 11/16/13 Nurse Technician Relationship Specialty Start Date End Date Preet Farrar DO [address] [facility] [place] [address] PCP - General Family Medicine 11/16/13 Nurse Technician Relationship Specialty Start Date End Date Preet Farrar, DO [address] [place] [address] PCP - General Family Medicine 11/16/13 Nurse Technician Relationship Specialty Start Date End Date Preet Farrar, DO [address] [place] [address] PCP - General Family [facility] 11/16/13 Nurse Technician Relationship Specialty Start Date End Date Preet Farrar, DO [address] [place], [place] [id number] PCP - [facility] 11/16/13 Nurse Technician Relationship Specialty Start Date End Date Preet Farrar, DO [address] [place], [place] [id number] PCP - [facility] 11/16/13 FOR RECORDS PERTAINING TO PATIENTS WHO ARE OR HAVE BEEN ENROLLED IN A CHEMICAL DEPENDENCY/SUBSTANCEABUSE PROGRAM, SOME INFORMATION MAY BE OMITTED. This clinical summary was aggregated from multiple sources. Caution should be exercised in using it in the provision of clinical care. This summary normalizes information from multiple sources, and as a consequence, information in this document may materially change the coding, format and clinical context of patient data. In addition, data may be omitted in some cases. CLINICAL DECISIONS SHOULD BE BASED ON THE PRIMARY CLINICAL RECORDS. [facility] [employer] [facility]. provides no warranty or guarantee of the accuracy or completeness of information in this document.
--- NOTE | 2024-07-26 06:45 | PCM.HP.BLA ---
History and Physical Intake Vital Signs 07/07/2413:26 07/19/2407:53 Height 5 ft 5 ft Weight: 178 lb 177 lb BMI 34.7 34.5 BP 171/77 H 155/64 H Blood Pressure Location Lt brachial Position Sitting Pulse 70 Pulse Source Monitor Intake Visit Reasons: D&C possible hysteroscopy Chief Complaint: surgical consult atypica cells on EMB- non cancerous General Ophthalmologist Required: No Is patient in pain?: No Feel stressed/tense/nervous/anxious/difficulty sleeping: to some extent (some anxiety related to upcoming procedure) Allergies metformin Allergy (Severe, Verified 07/19/24 10:43) Hivesprednisone Allergy (Intermediate, Verified 07/19/24 10:43) Itchingaspirin Allergy (Verified 07/19/24 10:43) mouth swellinggluten Allergy (Verified 07/19/24 10:43) Abd cramps/diarrheaibuprofen Allergy (Verified 07/19/24 10:43) mouth swellingSulfa (Sulfonamide Antibiotics) Allergy (Verified 07/19/24 10:43) pt can't remember Medications ?Medication ?Instructions ?Recorded ?Confirmed ?Type ergocalciferol (vitamin D2) 1,250 50,000 unit PO MOFR SUPPLEMENT 12/18/20 07/19/24 History mcg (50,000 unit) capsule thyroid (pork) 120 mg tablet 120 tablet PO DAILY THYROID 12/18/20 07/19/24 History atorvastatin 80 mg tablet 80 mg PO QHS cholesterol #30 tabs 11/04/22 07/19/24 Rx clopidogrel 75 mg tablet 75 mg PO DAILY BLOOD THINNER #30 11/04/22 07/19/24 Rx tabs carvedilol 6.25 mg tablet 6.25 mg PO BID 03/05/24 07/19/24 History spironolactone 25 mg tablet 25 mg PO DAILY 03/05/24 07/19/24 History glimepiride 2 mg tablet 2 mg PO BID #60 tabs 03/09/24 07/19/24 Rx clonidine HCl 0.1 mg tablet 0.1 mg PO Q8H PRN PRN blood 05/22/24 07/19/24 History pressure ondansetron 4 mg disintegrating 4 mg PO Q8H PRN PRN Nausea #10 tabs 05/22/24 07/19/24 Rx tablet pantoprazole 40 mg tablet,delayed 40 mg PO DAILY #30 tabs 05/22/24 07/19/24 Rx release vitamin C 30 mg-zinc citrate 1.1 1 tab PO DAILY 05/22/24 07/19/24 History mg-elderberry 25 mg chewable tablet (Sambucus Elderberry) sitagliptin phosphate 100 mg 100 mg PO QDAY 07/07/24 07/19/24 History tablet (Januvia) insulin glargine 100 unit/mL (3 16 unit subcut DAILY 07/19/24 07/19/24 History mL) subcutaneous pen (Lantus Solostar U-100 Insulin) Is last menstrual period known: No Post menopausal: Yes Patient : No : No PFSH Medical History Marijuana smoker Anxiety Depression Diabetes Former smoker Stroke/cerebrovascular accident Former tobacco use Head injury Near syncope Elevated troponin Abnormal EKG Hyponatremia Prolonged QT interval Polyneuropathy Occlusion of left internal carotid artery Ischemic stroke 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 Irritable bowel syndrome Celiac disease Ulcerative colitis Muscle spasm Hypothyroidism Hypertension Vitamin D deficiency Diabetes mellitus Lumbar spinal stenosis Lumbar disc herniation with radiculopathy Ambulatory dysfunction Intractable back pain Surgical History Hx of umbilical hernia repair S/P tubal ligation S/P cholecystectomy S/P tonsillectomy and adenoidectomy History of lumbar fusion History of lumbar discectomy Family History Mother Heart diseaseFather Heart disease Hypertension CAD (coronary artery disease) Myocardial infarction Thyroid disorder Diabetes Social History (Updated 07/07/24 @ 14:42 by Jemima Gonzalez) adopted: No household members: none number of children: 3 sexually active: Yes Smoking Status: Former smoker alcohol intake: never substance use type: marijuana and other details: Medical cannabis, usually daily. seatbelt use: always do you feel safe at home: Yes HPI D&C possible hysteroscopy Details: LEIDY AMADO is a 68 year old who presents for preop visit planning d and c hysterosocpy Female Reproductive History Menopausal Symptoms: No night sweats History 3 Elective abortions Hx Para 3 Spontaneous abortions Hx # Term Pregnancies Ectopic pregnancies Hx # Pregnancies Multiple births # of living children 3 Past Pregnancies Del. Date Name GA/Weeks Outcome Route Bth Weight Gen Labor Lgth Anesthesia Del Locatn Provider FOB Unknown 1985 Alicia Unknown 1989 Zoey Unknown 1996 Jeffrey ROS Const Constitutional: Denies fatigue, night sweats, weight gain or weight loss ENT ENT: Reports system reviewed and no additional complaints, except as documented Cardio Card: Denies chest pain Resp Resp: Denies cough or dyspnea GI GI: Reports as per HPI; Denies abdominal pain, constipation, nausea or vomiting : Denies nipple discharge, urinary frequency, urinary incontinence, urinary hesitancy, urinary urgency, vaginal discharge, vaginal dryness, vaginal odor or vaginal pruritus Musc Musc: Denies arthralgias, back pain or muscle weakness Skin Skin/Breast: Denies alopecia, change in hair, dry skin, breast mass, breast pain, breast skin changes or nipple discharge Neuro Neuro: Reports system reviewed and no additional complaints, except as documented Psych Psych: Reports system reviewed and no additional complaints, except as documented Endo Endo: Denies cold intolerance, excessive sweating, heat intolerance or polydipsia Antonio/Lymph Hematologic/Lymphatic: Denies easy bleeding, Denies easy bruising and Denies lymphadenopathy Exam Const General: cooperative, healthy appearing, comfortable and no acute distress Orientation: alert HENRI Head: normal to inspection and normocephalic Ears: hearing grossly normal bilaterally and external ears normal Nose: external nose normal and nares normal Face and sinus: normal facial exam Neck Neck: normal visual inspection and no lymphadenopathy Thyroid: thyroid normal Chest Chest palpation & inspection: normal inspection of the chest Resp Effort & Inspection: normal respiratory effort Auscultation: clear to auscultation bilaterally Cardio Rate: regular rate Rhythm: regular rhythm Heart Sounds: S1 normal, S2 normal and murmur systolic GI Inspection: normal to inspection and non-distended Palpation: soft and no hepatosplenomegaly Musc Other: gross motor intact no deficits, full bilateral strength Skin General: no rashes or lesions noted Neuro General: patient alert, patient awake, moves all extremities and no focal motor deficits Motor: muscle tone normal throughout Extrem General: normal to inspection and no pedal edema Psych Appearance: grossly normal Mental Status: mental status grossly normal Affect: normal affect Speech and Movement: speech and movement normal Coding Level of Care Code No Charge Diagnoses Thickened endometrium R93.89 Pelvic pain R10.2 HPV test positive Assessment and Plan Assessment and Plan (1) Thickened endometrium: Status: Acute Comment: CT 05/22/24 with 1.4cm lining. EMB abnormal cells no cancer, recommend d and c possible hysteroscopy for full evaluation, needs cardiac clearance (2) Pelvic pain: Status: Acute Comment: resolved. CT otherwise normal. resolved (3) HPV test positive: Status: Acute Comment: Negative pap; Rpt pap and hpv 1 year Plan needs medical/cardiac clearance, review thyroid labs from [facility] prior to surgery After discussing the patient's diagnosis and treatment plan options, patient wishes to proceed with surgical management. I have discussed with the patient the risks, benefits, and alternatives of the procedure which include but are not limited to risks of anesthesia, bleeding, infection, possible damage to bowel, bladder, or surrounding vasculature which could lead to additional surgery to evaluate any complications. Patient agrees to procedure and wishes to proceed. ACOG/uptodate references given for additional information regarding procedure. UPDATE- I have seen the patient and performed any clinically relevant updates to the history and physical exam. Anushka Hall MD
--- NOTE | 2024-07-26 07:09 | PRE.ANES_ITS ---
ASA Classification* ASA Classification ASA Classification: 2 Assessment & Plan Anesthesia* Anesthesia Assessment Anesthesia Assessment: Discussed sedation and/or anesthesia options, risks, benefits, and alternatives with patient/parents/legal guardian/POA. Questions invited. The patient/parents/legal guardian/POA seems to understand and agrees to proceed with anesthesia plan. Reviewed the physical assessment, medical history, allergy history and patient home medications list prior to surgery/procedure/anesthetic and documented any changes. Performed airway and anesthesia risk assessments. Anesthesia Type Anesthesia Type: MAC (SEE WRITTEN PRE ANESTHESIA RECORD FOR FULL ASSESSMENT) Anesthesia Focused Assessment* Temperature: 98.2 F Pulse Rate: 64 Blood Pressure: 120/54 Respiratory Rate: 18 Pulse Ox: 96 Airway Assessment Mouth opens: >3 cm Mallampati Score: II Focused Labs Anesthesia Preop lab: CBC WBC 9.9 K/mm3 (4.4-11.0) 06/06/24 11:54 RBC 4.38 M/mm3 (4.2-5.4) 06/06/24 11:54 Hgb 13.3 g/dL (12.0-15.0) 06/06/24 11:54 Hct 41.0 % (37-47) 06/06/24 11:54 Plt Count 334 K/mm3 (150-450) 06/06/24 11:54 CHEMISTRY Potassium 4.0 mmol/L (3.5-5.1) 07/21/24 11:13 Sodium 136 mmol/L (136-145) 07/21/24 11:13 Magnesium 2.2 mg/dL (1.6-2.6) 03/06/24 04:46 Phosphorus 1.8 mg/dL (2.5-4.9) L 03/06/24 04:46 BUN 19 mg/dL (7-18) H 07/21/24 11:13 Creatinine 0.71 mg/dL (0.55-1.02) 07/21/24 11:13 Glucose 191 mg/dL (74-106) H 07/21/24 11:13 POC Glucose 294 mg/dL (74-106) H 03/09/24 11:39 TSH 0.143 uIU/mL (0.358-3.740) L 07/21/24 11:13 COAG PT 14.0 SECONDS (11.7-14.9) 03/06/24 04:46 Pre-Assessment Diagnosis/Proposed Procedure Planned Operative Procedure(s): Dilation and Curettage, possible hysteroscopy Anesthesia History Anesthesia History - machine set up technician: Anesthesia History - machine set up technician Hx Hospitalization Yes: MEDICATION REACTION 07/21/24 08:26 Any Problems With Anesthesia Yes: PONV 07/21/24 08:26 Cholinesterase deficiency No 07/21/24 08:26 You/Your Family Experience No 07/21/24 08:26 fever (hyperthermia) with Relationship Recent Exposure to Contagious No 07/26/24 06:31 Disease Does patient have nerve No 07/21/24 08:26 stimulator Patient instructed to have device shut off --Does patient have Pacemaker No 07/26/24 06:31 or ICD? When Was Last Pacemaker Check QUESTION #4 FULL TEXT: You/Your Family Experience fever (hyperthermia) with Anesthesia Last Oral Intake Last Oral intake: Last Oral Intake NPO since 20:30 07/26/24 06:31 Meds taken in AM with sips of Yes 07/26/24 06:31 water? Meds patient instructed to take am of surgery PONV PONV - machine set up technician: PONV - machine set up technician Female Yes 07/21/24 08:26 HX of Motion Sickness Yes 07/21/24 08:26 HX of N/V After Surgery Yes 07/21/24 08:26 Non-Smoker Yes 07/21/24 08:26 Duration of Surgery greater No 07/21/24 08:26 than 60 minutes Number of Risk Factors 4 07/21/24 08:26 PONV Score Severe Risk 07/21/24 08:26 Height & Weight Height & Weight: Anesthesia: Height & Weight Height 5 ft 07/26/24 06:31 Weight: 81.6 kg 07/26/24 06:31 Body Mass Index (BMI) 35.1 07/26/24 06:31 Respiratory Assessment Respiratory Assessment - machine set up technician: Respiratory Tract Infection Hx - machine set up technician Hx Respiratory Tract Infection No 07/21/24 08:26 STOP Sleep Apnea STOP Sleep Apnea - machine set up technician: STOP Sleep Apnea - machine set up technician Hx Hypertension Yes: CONTROLLED WITH MED 07/21/24 08:26 Hx Sleep Apnea No 07/21/24 08:26 CPAP BIPAP Do you snore loudly (louder No 07/21/24 08:26 than talking or can be heard Do you often feel tired/ No 07/21/24 08:26 fatigued/ sleepy during daytime? Has anyone observed you stop No 07/21/24 08:26 breathing during sleep? STOP Results Negative 07/21/24 08:26 QUESTION #5 FULL TEXT : Do you snore loudly (louder than talking or can be heard through closed doors)? 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 - machine set up technician: 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 - machine set up technician Tobacco Use Cigarettes 06/13/24 15:14 Smoking Status Former smoker 07/21/24 08:26 Hx Tobacco Use Yes: marijuana 07/21/24 08:26 Years Smoking Packs Smoked per Day Smoking Cessation Date was Yes - quit smoking within 15 07/21/24 08:26 within the last 15 years years Hx Smoking Cessation Date 10/29/22 07/21/24 08:26 Hx Smoking Cessation No 07/21/24 08:26 Counseling Hematologic Medial History Hematologic Hx - machine set up technician: Hematologic Medical Hx - addressing machine operator Hx of Blood Transfusion No 07/21/24 08:26 Hx of Transfusion in last 3 No 07/21/24 08:26 Months Date of Last Transfusion (if within last 3 months) Ever experience any problems No 07/21/24 08:26 with transfusion(s)? Specify any problems Hx of Preganancy in last 3 N/A 07/21/24 08:26 Months Nurse Filling Out Transfusion NBUCHER 07/21/24 08:26 & Questions: Date: 07/21/24 07/21/24 08:26 Time: 08:40 07/21/24 08:26 Patient unable to answer at this time (ie. confused, unrespo /Reproduction History /Reproductive History - machine set up technician: /Reproductive Hx- machine set up technician Hx Now Gestational Age (in weeks): EDC: Hx Hx Para Hx Section SAB No 07/19/24 10:48 Active Medications Active Medications: Current Medications Generic Name Dose Route Start Last Admin Trade Name Freq PRN Reason Stop Dose Admin Sodium Chloride 10 - 40 ml 07/26/24 06:14 0.9% Saline Lock 10 Ml Syringe IV UD PRN SALINE FLUSH PFSH Medical History Wears glasses Post-menopausal Marijuana use Insulin dependent diabetes mellitus Thyroid disease Fatty liver High cholesterol Ulcerative colitis GERD (gastroesophageal reflux disease) Leg cramps History of echocardiogram Hypertension PONV (postoperative nausea and vomiting) Marijuana smoker Anxiety Depression Diabetes Former smoker Stroke/cerebrovascular accident (11/02/22) Former tobacco use Head injury Near syncope Elevated troponin Abnormal EKG Hyponatremia Prolonged QT interval Polyneuropathy Occlusion of left internal carotid artery Ischemic stroke 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 Irritable bowel syndrome Celiac disease Ulcerative colitis Muscle spasm Hypothyroidism Hypertension Vitamin D deficiency Diabetes mellitus Lumbar spinal stenosis Lumbar disc herniation with radiculopathy Ambulatory dysfunction Intractable back pain Home Medications ?Medication ?Instructions ?Recorded ?Last Taken ?Type ergocalciferol (vitamin D2) 1,250 50,000 unit PO MOFR SUPPLEMENT 12/18/20 07/25/24 History mcg (50,000 unit) capsule thyroid (pork) 120 mg tablet 120 tablet PO DAILY THYROID 12/18/20 07/26/24 History atorvastatin 80 mg tablet 80 mg PO QHS cholesterol #30 tabs 11/04/22 07/25/24 Rx clopidogrel 75 mg tablet 75 mg PO DAILY BLOOD THINNER #30 11/04/22 07/25/24 Rx tabs carvedilol 6.25 mg tablet 6.25 mg PO BID 03/05/24 07/25/24 History spironolactone 25 mg tablet 25 mg PO QHS 03/05/24 03/04/24 History glimepiride 2 mg tablet 2 mg PO BID #60 tabs 03/09/24 07/25/24 Rx clonidine HCl 0.1 mg tablet 0.1 mg PO Q8H PRN PRN blood 05/22/24 Unknown History pressure pantoprazole 40 mg tablet,delayed 40 mg PO DAILY #30 tabs 05/22/24 07/26/24 Rx release vitamin C 30 mg-zinc citrate 1.1 1 tab PO DAILY 05/22/24 Unknown History mg-elderberry 25 mg chewable tablet (Sambucus Elderberry) sitagliptin phosphate 100 mg 100 mg PO QDAY 07/07/24 07/25/24 History tablet (Januvia) insulin glargine 100 unit/mL (3 16 unit subcut DAILY 07/19/24 07/25/24 History mL) subcutaneous pen (Lantus Solostar U-100 Insulin) thyroid (pork) 30 mg tablet 30 mg PO MOWEFR 07/21/24 07/25/24 History ([place] Thyroid) Allergy/AdvReac Type Severity Reaction Status Date / Time metformin Allergy Severe Hives Verified 07/26/24 06:28 prednisone Allergy Intermediate Itching Verified 07/26/24 06:28 aspirin Allergy mouth Verified 07/26/24 06:28 swelling gluten Allergy Abd Verified 07/26/24 06:28 cramps/diarrhea ibuprofen Allergy mouth Verified 07/26/24 06:28 swelling Sulfa (Sulfonamide Allergy pt can't Verified 07/26/24 06:28 Antibiotics) remember Family History Mother Heart disease Father Heart disease Hypertension CAD (coronary artery disease) Myocardial infarction Thyroid disorder Diabetes Surgical History History of back surgery (~2019) Hx of umbilical hernia repair S/P tubal ligation S/P cholecystectomy S/P tonsillectomy and adenoidectomy History of lumbar fusion History of lumbar discectomy Social History adopted: No household members: none number of children: 3 sexually active: Yes Smoking Status: Former smoker alcohol intake: never substance use type: marijuana and other details: Medical cannabis, usually daily. seatbelt use: always do you feel safe at home: Yes Review of Systems (Anesthesia) ROS Narrative System reviewed and no additional complaints, except as documented.
--- NOTE | 2024-07-26 07:10 | SUR.PREOP ---
THIS NURSE CONTACTED DR. PITT REGARDING PATIENT TAKING HER PLAVIX YESTERDAY. AFTER SHE CONSULTED WITH DR. SHERMAN SHE SAID SHE DOES NOT HAVE HER PATIENT'S HOLD THEIR PLAVIX. SO SHE WILL CONTINUE WITH THE PROCEDURE.
--- NOTE | 2024-07-26 07:30 | EMB_PTH ---
PATHOLOGY RESULTS PATIENT: LEIDY AMADO [place] [facility] [place][id number] AGE/SX: 68/F ROOM: RE07/26/[address]: Dr. Anushka Hall MD : 1955 BED: DIS: 07/26/2024 SPEC #: [id number] RECD: 07/26/24 10:26 STATUS: ROSALINA JOSEPH #: [id number] LISA: 07/26/24 07:[address]: Anushka Hall DEPT: SURGICAL PATHOLOGY RECD BY: Zulma Daniels ENTERED: 07/26/24 11:12 SP TYPE: ENDOM BX/C DIAMANTEHR DR: Dr. Preet Farrar DO Tissues: Endometrium, NOS Procedures: Surgery Specimen Level IV HEADER OPERATION: D&C, hysteroscopy, polypectomy PRE-OP DIAGNOSIS: Thickened endometrium, pelvic pain, HPV test positive, endometrial mass TISSUE SUBMITTED: Endometrial curettings and polypectomy MICROSCOPIC DIAGNOSIS Endometrial curettings and polyp, polypectomy: Fragments of benign endometrial polyp with simple cystic hyperplasia without atypia. See comment. 07/27/2024 COMMENT The specimen predominantly consists of endometrial polyps. Clinical correlation and appropriate follow up are necessary. MICROSCOPIC DESCRIPTION Slides are reviewed. GROSS DESCRIPTION Received in fixative is one container labeled with the patient's name and designated Endometrial curettings and polyp. The specimen consists of multiple irregular fragments of spicer indurated tissue mixed with polypoid tissue that in aggregate measure 5.0 x 5.0 x 0.5 cm. The largest polypoid piece measures 3.5 x 1.5 x 1.0cm. The largest polypoid mass is bisected. The entire specimen is submitted in three cassettes. 07/26/2024 TC:5 CPT:81435
[2024-07-26 07:35] LABS: Bedside Glucose 171 mg/dL (74-106)
[2024-07-26] MEDS: Lidocaine 1% (20 ml mdv) 20 ML Vial (07:58)
--- NOTE | 2024-07-26 08:29 | OP.PCM_ITS ---
Operative Report (Standard) Operative Information Surgery/Procedure Performed: d and c hysteroscopy polypectomy Surgeon: Anushka Hall Date of Procedure: 07/26/24 Procedure Start Time: 07:58 Procedure Stop Time: 08:27 Pre-Operative Diagnosis: thickened endometrium Post-Operative Diagnosis: endometrial mass Select all DRAINS/GRAFTS/IMPLANTS that apply: None Type of Anesthesia: IV Sedation Estimated Blood Loss: 50 Specimen collected: Yes Description of specimen(s) removed: curretage endometrial polyp/mass Description of surgery: Patient was prepped and draped in a normal sterile fashion under MAC anesthesia. A weighted speculum was placed in the vagina and the anterior lip of the cervix was grasped with a single-tooth tenaculum. A paracervical block was placed with 1% lidocaine. Cervix was progressively dilated to allow passage of a 5 mm hysteroscope. The lining was fully visualized and noted to have large polypoid mass filling the endometrium . Uterine sounded to 8 cm with good vaginal access and uterine descent. Curettage was performed and polypectomy with multiple tries, using the polyp forceps and hysteroscopic forceps, the entire mass was removed , sent to pathology. small area of bleeding noted at the base and due to the patient being on plavix, minimal vaginal bleeding noted but floseal placed inside the uterus to reduce the risk of postop bleeding. All instruments were removed from the vagina and excellent hemostasis was noted. Patient was awoken and taken to recovery in stable condition. Surgical Findings: endometrial polypoid mass Community Services Manager water/wastewater project manager: No Complications Complications: No Multi Select Codes Urinary/Genital Urinary/Genital CPT Codes: 68379 Hysteroscopy,EMC, Polypectomy
--- NOTE | 2024-07-26 08:34 | PCM.POST.ANE ---
Anesthesia: Postop Eval I Current Vital Signs Temperature: 97.6 F Pulse Rate: 68 Blood Pressure: 123/64 Respiratory Rate: 18 Pulse Ox: 94 Oxygen Delivery Method: Room Air Assessment Airway patent: Yes Spontaneous unlabored respirations: Yes Mental status: Awake and Calm nausea: No Vomiting: No Anesthesia Complication: No Fluid Hydration Crystalloid volume administer (ml): 10 Total IV fluid infused: 10 Progress Note Anesthesia document: Postop Eval 1 completed: Yes
--- NOTE | 2024-07-26 08:41 | DCINST_ITS ---
Discharge Instructions Diet Discharge Diet: No restrictions Activity Discharge Activity: Return to Normal Activity, May Shower and May Take a Tub Bath (after 1 week) May resume sexual activity in: 1-2 weeks Weight Bearing Status: Weight bearing as tolerated Lifting Restrictions: none Dressing / Incision Call your doctor if you observe: Fever of 101 or Higher, Using more than 1 pad per hour, Shortness of breath and Uncontrolled pain Follow Up Care Please Follow Up With: Anushka Hall MD When: Call [phone] to schedule appointment. Test Results: Test results from this visit will be discussed in further detail at your follow- up appointment, if applicable. Discharge Plan Admission Attending Provider: Anushka Hall Primary Care Provider: Preet Farrar Instructions Print Language: Indonesian Discharge Orders/Prescriptions Prescriptions: No Action Januvia 100 mg tablet 100 mg PO QDAY thyroid (pork) 120 MG tablet 120 tablet PO DAILY Rx Instructions: DOES NOT TAKE ON SATURDAYS ergocalciferol (vitamin D2) 50,000 UNIT capsule 50,000 unit PO MOFR atorvastatin 80 mg Tablet 80 mg PO QHS Qty: 30 2RF clopidogrel 75 mg Tablet 75 mg PO DAILY Qty: 30 2RF carvedilol 6.25 mg tablet 6.25 mg PO BID spironolactone 25 mg tablet 25 mg PO QHS glimepiride 2 mg tablet 2 mg PO BID Qty: 60 0RF Sambucus Elderberry 30-1.1-25 mg tablet,chewable 1 tab PO DAILY clonidine HCl 0.1 mg tablet 0.1 mg PO Q8H PRN PRN (Reason: blood pressure) pantoprazole 40 mg tablet,delayed release (DR/EC) 40 mg PO DAILY Qty: 30 0RF insulin glargine [Lantus Solostar U-100 Insulin] 100 unit/mL (3 mL) insulin pen 16 unit subcut DAILY thyroid (pork) [[place] Thyroid] 30 mg tablet 30 mg PO MOWEFR Other Ambulatory Orders: 12 Lead EKG (Routine) Timeframe: 20240721 Location: None Selected Ordered By: Dr. Anushka Hall Referrals / Follow Up: Preet Farrar DO [Primary Care Provider] - Disposition Disposition (needs filled in before D/C Order can be placed): Home, Self Care
--- NOTE | 2024-07-26 09:14 | POSTOPAN2_ITS ---
Anesthesia Postop Eval I Sum Postop Eval Completion status Anesthesia document: Postop Eval 1 completed: Yes Anesthesia Postop Eval I Summary Anesthesia Postop Eval I Summary: Anesthesia Postop Eval I: Assessment Summary Airway patent Yes 07/26/24 08:36 PORCELAIN BUILDUP ASSISTANT.VJOBBaldev Spontaneous unlabored Yes 07/26/24 08:36 PORCELAIN BUILDUP ASSISTANT.JUAN respirations Mental status Awake,Calm 07/26/24 08:36 P[employer]CELAIN BUILDUP ASSISTANT.VJOBBaldev nausea No 07/26/24 08:36 PORCELAIN BUILDUP ASSISTANT.VJOBBaldev Vomiting No 07/26/24 08:36 PORCELAIN BUILDUP ASSISTANT.VJOBBaldev Anesthesia Postop Eval I: Fluid Summary Crystalloid volume administer 10 07/26/24 08:36 PORCELAIN BUILDUP ASSISTANT.VJOBY (ml) Colloids volume administered ( ml) Blood Product volume administered (ml) Total IV fluid infused 10 07/26/24 08:36 PORCELAIN BUILDUP ASSISTANT.JUAN Anesthesia Postop Eval I: Summary Notes Anesthesia Complication No 07/26/24 08:36 PORCELAIN BUILDUP ASSISTANT.JUAN Anesthesia Complication Comment: Post-operative progress note Anesthesia: Postop Eval II Evaluation Mental status: Awake and Calm Pain Level: 1 nausea: No Vomiting: No Complications Anesthesia Complication: No
--- NOTE | 2024-07-26 09:14 | PCM.POSTANE2 ---
Anesthesia Postop Eval I Sum Postop Eval Completion status Anesthesia document: Postop Eval 1 completed: Yes Anesthesia Postop Eval I Summary Anesthesia Postop Eval I Summary: Anesthesia Postop Eval I: Assessment Summary Airway patent Yes 07/26/24 08:36 PLEATING SUPERVISOR.[email or web address] Spontaneous unlabored Yes 07/26/24 08:36 PLEATING SUPERVISOR.JUAN respirations Mental status Awake,Calm 07/26/24 08:36 PLEATING SUPERVISOR.VJOBBaldev nausea No 07/26/24 08:36 PLEATING SUPERVISOR.VJOBBaldev Vomiting No 07/26/24 08:36 PLEATING SUPERVISOR.VJOBBaldev Anesthesia Postop Eval I: Fluid Summary Crystalloid volume administer 10 07/26/24 08:36 PLEATING SUPERVISOR.VJOBY (ml) Colloids volume administered ( ml) Blood Product volume administered (ml) Total IV fluid infused 10 07/26/24 08:36 PLEATING SUPERVISOR.JUAN Anesthesia Postop Eval I: Summary Notes Anesthesia Complication No 07/26/24 08:36 PLEATING SUPERVISOR.JUAN Anesthesia Complication Comment: Post-operative progress note Anesthesia: Postop Eval II Evaluation Mental status: Awake and Calm Pain Level: 1 nausea: No Vomiting: No Complications Anesthesia Complication: No
== END 2024-07-26 09:27 | disposition home or self-care (01) ==
LOC: SDC 05:50 → AC 05:50
PROVIDERS: PCP Student in an Organized Health Care Education/Training Program; Referring Provider Obstetrics & Gynecology; Visit Provider Obstetrics & Gynecology
PROC: (CPT 58120; principal; 2024-07-26 07:15)
DX: N85.01 Benign endometrial hyperplasia (principal); E11.42 Type 2 diabetes mellitus with diabetic polyneuropathy; Z79.4 Long term (current) use of insulin; Z79.84 Long term (current) use of oral hypoglycemic drugs; Z87.891 Personal history of nicotine dependence; I10 Essential (primary) hypertension; Z79.899 Other long term (current) drug therapy; Z79.02 Long term (current) use of antithrombotics/antiplatelets; E78.00 Pure hypercholesterolemia, unspecified; K21.9 Gastro-esophageal reflux disease without esophagitis; E03.9 Hypothyroidism, unspecified
CPT/HCPCS: 58558; 00952; 36415; 80053; 82962; 83036; 84443; 86850; 86900; 86901; 88305; 93005; A4216; J2405

== ENCOUNTER → 2024-09-06 | Outpatient (CLI) | payer MEDICARE, MEDICAID, SELFPAY ==
--- NOTE | 2024-09-06 08:01 | RDU_ITS ---
Reason For Study: HTN Right Renal Artery Left Renal Artery Right renal artery ostium Left renal artery ostium 265.3/45.5 161.6/29.9 RSV/EDV. PSV/EDV. Right renal artery proximal Left renal artery proximal PSV/EDV 165.9/38.6 PSV/EDV. 296.7/53.4 . Right renal artery mid 161.3/38.0 Left renal artery mid 254.2/37.5 PSV/EDV. PSV/EDV . Right renal artery distal Left renal artery distal 137.8/34.3 169.0/44.6 PSV/EDV. PSV/EDV. Right RAR 2.72. Left RAR 4.77. Right Renal Parenchyma Left Renal Parenchyma Upper Pole Medula 61.1/15.8 Left upper pole medulla 46.5/12.8 PSV/EDV. PSV/EDV . Right upper pole medulla EDR 0.30 . Left upper pole medulla EDR 0.30 . Right upper pole medulla R.I. Left upper pole medulla R.I. 0.72 . 0.74 . UP Cortex 53.0/15.4 PSV/EDV. Upper [place]ayan Cortx 36.5/10.6 PSV/EDV. Left upper pole cortex EDR 0.30 . Right upper pole cortex EDR 0.30 . Left upper pole cortex R.I. 0.71 . Right upper pole cortex R.I. 0.71 . Left lower Pole medulla 68.5/19.3 Right lower Pole medulla 57.3/17.1 PSV/EDV . PSV/EDV . Left lower pole medulla EDR 0.30 . Right lower pole medulla EDR 0.30 . Left lower pole medulla R.I. 0.72 . Right lower pole medulla R.I. Lower Pole Cortx 33.5/10.2 PSV/EDV. 0.70 . Left lower pole cortex EDR 0.30 . Lower Pole Cortex 44.3/10.6 Left lower pole cortex R.I. 0.69 . PSV/EDV. Left Renal Hilar Right lower pole cortex EDR 0.20 . LT Hilar avg 108.6/36.0 PSV/EDV . Right lower pole cortex R.I. 0.76 . Left hilar acceleration time 30 Right Renal Hilar m/sec. Right Hilar avg 100.5/27.8 PSV/EDV. Left Renal Dimensions Right hilar acceleration time 30 Left kidney size 10.36 cm . m/sec. Left cortical dimension 1.43 cm . Right Renal Dimensions Right kidney size 11.11 cm . Right cortical dimension 1.52 cm . Aorta Proximal abdominal aorta 2.22 x 2.30 cm . Proximal abdominal aorta peak systolic velocity is 58.9 cm/sec . Distal abdominal aorta 1.21 x 1.17 cm . Distal abdominal aorta peak systolic velocity is 62.2 cm/sec . VL/Renal Artery Duplex Ultrasound Interpretation Summary Right renal artery patent with normal velocities and no evidence of stenosis. Left renal artery patent with > 60% stenosis. Right renal vein patent. Left renal vein patent. Right kidney normal in size. Left kidney normal in size. Ordering Physician: Julien Reyna Referring Physician: Preet Farrar Performed By: Iker Adame RVT
--- NOTE | 2024-09-06 08:01 | CDU_ITS ---
Reason For Study: Carotid Artery Stenosis Rt. Velocities/BP Lt. Velocities/BP Prox CCA 58.9/12.6 cm/sec. Prox CCA 69.9/13.8 cm/sec. Mid CCA 70.5/15.7 cm/sec. Mid CCA 71.0/18.2 cm/sec. Dist CCA 67.6/15.7 cm/sec. Dist CCA 57.8/11.7 cm/sec. Prox ICA 85.6/23.2 cm/sec. Known Lt ICA Occlusion. Mid ICA 79.0/18.5 cm/sec. Prox ECA 335.8/69.1 cm/sec. Dist ICA 80.9/24.2 cm/sec. Lt. Vert. 140.3/43.7 cm/sec. Rt. ICA/CCA = 1.2. Prox ECA 159.5/24.3 cm/sec. Rt. Vert. 50.6/9.1 cm/sec. Right Extracranial There is heterogeneous, irregular atherosclerotic plaque noted in the right common carotid artery. There is heterogeneous, irregular atherosclerotic plaque noted in the right internal carotid artery. There is heterogeneous, irregular atherosclerotic plaque noted in the right external carotid artery. Antegrade flow is noted in the right vertebral artery. Left Extracranial There is homogeneous, smooth atherosclerotic plaque noted in the left common carotid artery. The left internal carotid artery is occluded. There is heterogeneous, irregular atherosclerotic plaque noted in the left external carotid artery. Antegrade flow is noted in the left vertebral artery. Procedure Carotid Duplex [id number]. This is a Carotid Duplex examination using B-mode, color flow and specral Doppler. The exam was diagnostic. Exam performed in department. VL/Carotid Duplex Ultrasound Interpretation Summary Mild (<50%) stenosis right extracranial internal carotid. 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 Patent and antegrade vertebrals bilaterally. Ordering Physician: Julien Reyna Referring Physician: Preet Farrar Performed By: Iker Adame RVT
== END | disposition home or self-care (01) ==
LOC: CVS 07:56
PROVIDERS: PCP Student in an Organized Health Care Education/Training Program; Referring Provider Internal Medicine Cardiovascular Disease; Visit Provider Internal Medicine Cardiovascular Disease
DX: I70.1 Atherosclerosis of renal artery (principal); I77.9 Disorder of arteries and arterioles, unspecified; Z86.73 Personal history of transient ischemic attack (TIA), and cerebral infarction without residual deficits
CPT/HCPCS: 93880; 93975

== ENCOUNTER → 2024-10-10 | Outpatient (CLI) | payer MEDICARE, MEDICAID, SELFPAY ==
--- NOTE | 2024-10-10 06:39 | ECHOD_ITS ---
Reason For Study: Aortic Stenosis Procedure This was a 2D Doppler, Color Flow transthoracic echocardiogram. Exam performed in department. Left Ventricle Normal LV size. Mild concentric left ventricular hypertrophy. The left ventricular ejection fraction is 65 %. Stage 1 diastolic dysfunction. Right Ventricle Normal right ventricle. Atria The left atrium is mildly enlarged. Normal right atrium. Mitral Valve There is Moderate focal posterior mitral annular calcification. Trivial mitral valve insufficiency. Tricuspid Valve Trivial tricuspid valve insufficiency. Unable to estimate RV systolic pressure due to insufficient tricuspid regurgitant envelope. Aortic Valve Mild to moderate aortic valve stenosis with mild aortic valve regurgitation. Pulmonic Valve The pulmonic valve is not well visualized. Great Vessels Normal sized aortic root. Pericardium/Pleural Trivial loculated posterior pericardial effusion. MMode/2D Measurements & Calculations LVIDd: 4.5 cm IVSd: 1.2 cm LVOT diam: 2.0 cm LVIDs: 2.9 cm LVPWd: 1.3 cm LVOT area: 3.0 cm2 RVDd: 3.1 cm FS: 35.0 % Ao root diam: 3.3 cm LAV(MOD-bp): 44.4 ml LVAd ap4: 24.3 cm2 LA dimension: 4.2 cm LAV(MOD-bp) Indexed: 24.8 ml/m2 LVLd ap4: 6.9 cm LAV(MOD-sp2): 47.3 ml EDV(MOD-sp4): 72.0 ml LAV(MOD-sp4): 40.3 ml EDV(sp4-el): 73.1 ml LVAs ap4: 13.3 cm2 LVLs ap4: 6.4 cm ESV(MOD-sp4): 24.8 ml ESV(sp4-el): 23.5 ml EF(MOD-sp4): 65.5 % EF(sp4-el): 67.9 % SV(MOD-sp4): 47.2 ml SV(sp4-el): 49.6 ml LA A4 area: 16.4 cm2 SI(MOD-sp4): 26.4 ml/m2 LA dimension(2D): 4.4 cm RA A4 area: 16.0 cm2 TAPSE: 2.1 cm Time Measurements MV dec time: 0.22 sec Doppler Measurements & Calculations MV E max narendra: 82.8 cm/sec Lat Peak E' Narendra: 5.0 cm/sec Med Peak E' Narendra: 4.7 cm/sec MV A max narendra: 96.2 cm/sec E/E' lat: 16.4 E/E' med: 17.8 MV E/A: 0.86 MV V2 max: 107.0 cm/sec MV P1/2t max narendra: 95.4 cm/sec Ao V2 max: 314.0 cm/sec MV max P.6 mmHg MV P1/2t: 81.6 msec Ao max P.4 mmHg MV V2 mean: 62.5 cm/sec Ao V2 mean: 201.6 cm/sec MV mean P.8 mmHg MV dec slope: 342.4 cm/sec2 Ao mean P.1 mmHg MV V2 VTI: 37.2 cm MVA(P1/2t): 2.7 cm2 Ao V2 VTI: 71.8 cm AV (velocity ratio): 0.37 MVA(VTI): 2.2 cm2 GREG(I,D): 1.1 cm2 GREG(V,D): 1.0 cm2 AI max narendra: 407.1 cm/sec LV V1 max: 106.9 cm/sec SV(LVOT): 80.4 ml AI max P.7 mmHg LV V1 max P.6 mmHg LV V1 mean P.4 mmHg AI dec slope: 216.4 cm/sec2 LV V1 mean: 72.3 cm/sec AI P1/2t: 550.9 msec LV V1 VTI: 26.4 cm PA V2 max: 94.7 cm/sec PA V2 mean: 63.9 cm/sec ECHO/Echo Complete Interpretation Summary Mild concentric left ventricular hypertrophy. The left ventricular ejection fraction is 65 %. Stage 1 diastolic dysfunction. The left atrium is mildly enlarged. Mild to moderate aortic valve stenosis with mild aortic valve regurgitation. Trivial loculated posterior pericardial effusion. Ordering Physician: Julien Reyna Referring Physician: Julien Reyna Performed By: Nick Chambers RCS
--- NOTE | 2024-10-10 09:53 | STRESSREP_ITS ---
Stress Test Report Date: 10/10/2024 Procedure: Exercise tolerance test/imaging study Indications: Coronary artery disease Consent: Per the patient Procedure: The patient exercised on a Murray protocol for 6 minutes and 1 second achieving a peak heart rate of 133 bpm (88% predicted maximal heart rate) with a peak blood pressure 210/88 mmHg and a peak MET capacity of 7.0 METs. The baseline ECG demonstrated sinus rhythm. The peak exercise ECG demonstrated no ischemic changes. Rare PVCs noted. The functional capacity was considered average. There was no complaint of chest discomfort during exercise or recovery. The examination was discontinued secondary to target heart rate being achieved. The patient was injected with 11.9 mCi of technetium 99m Cardiolite and subsequently rest SPECT Cardiolite nuclear imaging was obtained in the horizontal long, vertical long, and short axis views. Post-exercise, the patient was injected with 33.3 mCi of technetium 99m Cardiolite and subsequently stress SPECT Cardiolite nuclear imaging was obtained in the horizontal long, vertical long, and short axis views. A gated Cardiolite study at peak stress was obtained. Rest and stress SPECT Cardiolite nuclear imaging status post realignment, normalization, and attenuation correction, demonstrates the appearance of relative uniform tracer uptake and myocardial perfusion appearing within normal limits. There is end systolic thickening and brightening. The gated Cardiolite study demonstrates myocardial thickening and inward wall motion. The reported LVEF is 73%. Impression: 1. Technically adequate (percent predicted maximal heart rate greater than 85%) exercise tolerance test 2. Peak exercise ECG with no ischemic changes. Baseline hypertension with hypertensive response to exercise. 3. Rare PVCs noted 4. Rest and stress SPECT Cardiolite nuclear imaging demonstrate relative uniform tracer uptake and myocardial perfusion appearing within normal limits. 5. The gated Cardiolite study reports an LVEF of 73%. This note was generated with [employer] software. It may contain incorrect words, spelling, and punctuation that were not noted in checking the note before signing.
== END | disposition home or self-care (01) ==
LOC: CVS 06:36
PROVIDERS: PCP Student in an Organized Health Care Education/Training Program; Referring Provider Internal Medicine Cardiovascular Disease; Visit Provider Internal Medicine Cardiovascular Disease
DX: I35.0 Nonrheumatic aortic (valve) stenosis (principal); I11.9 Hypertensive heart disease without heart failure; I70.90 Unspecified atherosclerosis; I10 Essential (primary) hypertension; R94.31 Abnormal electrocardiogram [ECG] [EKG]; Z86.73 Personal history of transient ischemic attack (TIA), and cerebral infarction without residual deficits
CPT/HCPCS: 78452; 93017; 93306; A9500; A4216

== ENCOUNTER 2024-12-27 08:20 | Inpatient (IN) | payer MEDICARE, MEDICAID, SELFPAY ==
--- NOTE | 2024-12-15 12:18 | EKG12_ITS ---
Test Reason : PREOP Blood Pressure : */* mmHG Vent. Rate : 67 BPM Atrial Rate : 67 BPM P-R Int : 208 ms QRS Dur : 86 ms QT Int : 390 ms P-R-T Axes : * 8 2 degrees QTcB Int : 412 ms Normal sinus rhythm Normal ECG Confirmed by KALIN TURNER, KIMBERLEY ([id number]), news assignment editor ANNMARIE GANT ([id number]) on 12/16/2024 5:50:15 AM Referred By: Anushka Hall Confirmed By: KIMBERLEY GAGNON MD
[2024-12-15 13:13] LABS: Hematocrit 41.4 % (37-47); Hemoglobin 13.9 g/dL (12.0-15.0); Mean Corp Hgb Conc 33.6 g/dL (32-36); Mean Corpuscular Hgb 29.9 pg (27.0-32.0); Mean Platelet Vol. 9.9 fl (6.2-12.0); Platelet Count 354 K/mm3 (150-450); RBC Distribution Width CV 13.2 % (11.6-14.6); RBC Distribution Width SD 43.2 fl (35.1-43.9); Red Blood Count 4.65 M/mm3 (4.2-5.4); White Blood Count 11.5 K/mm3 (4.4-11.0)
[2024-12-15 14:10] LABS: Magnesium 1.8 mg/dL (1.5-2.2)
[2024-12-15 14:21] LABS: ALB/GLOB Ratio 1.4 RATIO (0.9-2.4); AST(SGOT) 19 U/L (<=31); Alanine Aminotransfer ALT/SGPT 15 U/L (<=34); Albumin, Serum 4.3 g/dL (3.4-4.8); Alkaline Phosphatase 106 U/L (35-104); Anion Gap 11 (5-15); BUN 19 mg/dL (4-19); Calcium,Total 9.7 mg/dL (7.6-11.0); Carbon Dioxide 24.6 mmol/L (21.0-32.0); Chloride 101 mmol/L (98-108); Creatinine, Serum 0.72 mg/dL (0.70-1.20); EST Glomerular Filtration Rate 90 (>60); Globulin 3.2 g/dL (2.2-4.2); Glucose 148 mg/dL (70-99); Potassium 4.1 mmol/L (3.3-5.1); Protein, Total 7.5 g/dL (5.9-8.4); Sodium Level 137 mmol/L (133-145); Thyroid Stim Hormone (TSH) 0.836 uIU/mL (0.300-4.200); Total Bilirubin 0.49 mg/dL (0.00-1.30)
--- NOTE | 2024-12-15 18:26 | PAT.ANESEVAL ---
Pre-Assessment Diagnosis/Proposed Procedure Planned Operative Procedure(s): HYSTERECTOMY TLH BSO Anesthesia History Anesthesia History - taper and floater: Anesthesia History - taper and floater Hx Hospitalization No 12/13/24 09:23 Any Problems With Anesthesia Yes: N,V 12/13/24 09:23 Cholinesterase deficiency No 12/13/24 09:23 You/Your Family Experience No 12/13/24 09:23 fever (hyperthermia) with Relationship Recent Exposure to Contagious No 07/26/24 06:31 Disease Does patient have nerve No 12/13/24 09:23 stimulator Patient instructed to have device shut off --Does patient have Pacemaker or ICD? When Was Last Pacemaker Check QUESTION #4 FULL TEXT: You/Your Family Experience fever (hyperthermia) with Anesthesia Last Oral Intake Last Oral intake: Last Oral Intake NPO since Meds taken in AM with sips of water? Meds patient instructed to take am of surgery PONV PONV - taper and floater: PONV - taper and floater Female Yes 12/13/24 09:23 HX of Motion Sickness No 12/13/24 09:23 HX of N/V After Surgery Yes 12/13/24 09:23 Non-Smoker Yes 12/13/24 09:23 Duration of Surgery greater Yes 12/13/24 09:23 than 60 minutes Number of Risk Factors 4 12/13/24 09:23 PONV Score Severe Risk 12/13/24 09:23 Height & Weight Height & Weight: Anesthesia: Height & Weight Height 5 ft 09/13/24 13:58 Respiratory Assessment Respiratory Assessment - taper and floater: Respiratory Tract Infection Hx - taper and floater Hx Respiratory Tract Infection No 12/13/24 09:23 STOP Sleep Apnea STOP Sleep Apnea - taper and floater: STOP Sleep Apnea - taper and floater Hx Hypertension Yes: CONTROLLED WITH MED 12/13/24 09:23 Hx Sleep Apnea No 12/13/24 09:23 CPAP BIPAP Do you snore loudly (louder No 12/13/24 09:23 than talking or can be heard Do you often feel tired/ No 12/13/24 09:23 fatigued/ sleepy during daytime? Has anyone observed you stop No 12/13/24 09:23 breathing during sleep? STOP Results Negative 12/13/24 09:23 QUESTION #5 FULL TEXT : Do you snore loudly (louder than talking or can be heard through closed doors)? 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 Specify any problems Hx of Preganancy in last 3 No 12/13/24 09:23 Months Nurse Filling Out Transfusion DSCHRIBER 12/13/24 09:23 & Questions: Date: 12/13/24 12/13/24 09:23 Time: 12/13/24 09:23 Patient unable to answer at this time (ie. confused, unrespo /Reproduction History /Reproductive History - taper and floater: /Reproductive Hx- taper and floater Hx Now No 12/13/24 09:23 Gestational Age (in weeks): EDC: Hx Hx Para Hx Section SAB No 12/13/24 09:23 [facility] Medical History (Updated 12/13/24 @ 09:35 by Monica Pelletier) Cardiology follow-up encounter History of stress test First degree AV block Simple endometrial hyperplasia without atypia Wears glasses Post-menopausal Marijuana use Insulin dependent diabetes mellitus Thyroid disease Fatty liver High cholesterol Ulcerative colitis GERD (gastroesophageal reflux disease) Leg cramps History of echocardiogram Hypertension PONV (postoperative nausea and vomiting) Encounter for screening examination for sexually transmitted disease HPV test positive Pelvic pain Thickened endometrium Anxiety Stroke/cerebrovascular accident (11/02/22) Former tobacco use Near syncope Elevated troponin Abnormal EKG Hyponatremia Prolonged QT interval Polyneuropathy Occlusion of left internal carotid artery Ischemic stroke 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 Irritable bowel syndrome Celiac disease Ulcerative colitis Muscle spasm Hypothyroidism Hypertension Vitamin D deficiency Diabetes mellitus Lumbar spinal stenosis Lumbar disc herniation with radiculopathy Ambulatory dysfunction Intractable back pain Home Medications ?Medication ?Instructions ?Recorded ?Last Taken ?Type ergocalciferol (vitamin D2) 1,250 50,000 unit PO MOFR SUPPLEMENT 12/18/20 07/25/24 History mcg (50,000 unit) capsule thyroid (pork) 120 mg tablet 120 tablet PO DAILY THYROID 12/18/20 07/26/24 History atorvastatin 80 mg tablet 80 mg PO QHS cholesterol #30 tabs 11/04/22 07/25/24 Rx clopidogrel 75 mg tablet 75 mg PO DAILY BLOOD THINNER #30 11/04/22 07/25/24 Rx tabs carvedilol 6.25 mg tablet 6.25 mg PO BID 03/05/24 07/25/24 History pantoprazole 40 mg tablet,delayed 40 mg PO DAILY #30 tabs 05/22/24 07/26/24 Rx release sitagliptin phosphate 100 mg 100 mg PO QDAY 07/07/24 07/25/24 History tablet (Januvia) thyroid (pork) 30 mg tablet 30 mg PO MOWEFR 07/21/24 07/25/24 History ([place] Thyroid) glimepiride 2 mg tablet 3 mg PO BID 08/10/24 Unknown History insulin glargine 100 unit/mL (3 20 unit subcut DAILY 12/12/24 Unknown History mL) subcutaneous pen (Lantus Solostar U-100 Insulin) spironolactone 25 mg tablet 25 mg PO BID 12/12/24 Unknown History elderberry fruit 200 mg capsule 1,000 mg PO DAILY 12/13/24 Unknown History Allergy/AdvReac Type Severity Reaction Status Date / Time metformin Allergy Severe Hives Verified 12/13/24 09:03 prednisone Allergy Intermediate Itching Verified 12/13/24 09:03 aspirin Allergy mouth Verified 12/13/24 09:03 swelling gluten Allergy Abd Verified 12/13/24 09:03 cramps/diarrhea ibuprofen Allergy mouth Verified 12/13/24 09:03 swelling Sulfa (Sulfonamide Allergy pt can't Verified 12/13/24 09:03 Antibiotics) remember Family History Mother Heart disease Alzheimers disease Father Heart disease Hypertension CAD (coronary artery disease) Myocardial infarction Thyroid disorder Diabetes Sister Cancer Surgical History (Updated 12/13/24 @ 09:35 by Monica Pelletier) History of esophagogastroduodenoscopy (EGD) Hx of colonoscopy History of hysteroscopy History of back surgery (~2019) Hx of umbilical hernia repair S/P tubal ligation S/P cholecystectomy S/P tonsillectomy and adenoidectomy History of lumbar fusion History of lumbar discectomy Social History adopted: No household members: none number of children: 3 sexually active: Yes Smoking Status: Former smoker alcohol intake: never substance use type: marijuana and other details: Medical cannabis, usually daily. seatbelt use: always do you feel safe at home: Yes Audit: Pertinent Findings Pertinent Findings EKG Perinent findings: August 17, 2024. Sinus rhythm. First-degree AV block. Stress test pertinent findings: October 10, 2024. Ejection fraction 73%. Rest and stress SPECT Cardiolite nuclear imaging demonstrates uniform tracer uptake and myocardial perfusion within normal limits. Echo (EF%) pertinent findings: October 10, 2024. Ejection fraction 65%. Mild to moderate aortic valve stenosis. Consult pertinent findings: August 17, 2024. Dr. Reyna. 1. Atherosclerotic vascular disease-patient has documented occlusive disease of the left internal carotid and moderate renal artery stenosis. Patient is diabetic. Will evaluate heart with stress Myoview and echocardiogram. (See above) 2. Carotid artery disease-will repeat carotid Doppler. (See below) 3. Renal artery stenosis at 60%. Repeat renal artery duplex exam. Start losartan 25 mg 4. Hypertension?on spironolactone and carvedilol. Losartan is being added. 5. History of stroke-no residual deficits. Continue Plavix. Additional pertinent findings: Carotid Doppler done September 06, 2024. 1. Less than 50% stenosis of the right internal carotid. 2. Total occlusion of the left internal carotid artery. 3. Patent and antegrade vertebrals bilaterally. Recommendation Anesthesia Recommendation Anesthesia recommendation: F/U recommended (Did patient ever get the renal artery ultrasound that was recommended by Dr. Reyna?)
[2024-12-15 20:34] LABS: Hemoglobin A1c 7.9 % (<=5.6)
--- NOTE | 2024-12-16 12:01 | PAT.ANESEVAL ---
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 When Was Last Pacemaker Check QUESTION #4 FULL TEXT: You/Your Family Experience fever (hyperthermia) with Anesthesia Last Oral Intake Last Oral intake: Last Oral Intake NPO since Meds taken in AM with sips of water? Meds patient instructed to take am of surgery PONV PONV - land development project manager: PONV - land development project manager Female Yes 12/13/24 09:23 HX of Motion Sickness No 12/13/24 09:23 HX of N/V After Surgery Yes 12/13/24 09:23 Non-Smoker Yes 12/13/24 09:23 Duration of Surgery greater Yes 12/13/24 09:23 than 60 minutes Number of Risk Factors 4 12/13/24 09:23 PONV Score Severe Risk 12/13/24 09:23 Height & Weight Height & Weight: Anesthesia: Height & Weight Height 5 ft 09/13/24 13:58 Respiratory Assessment Respiratory Assessment - land development project manager: Respiratory Tract Infection Hx - land development project manager Hx Respiratory Tract Infection No 12/13/24 09:23 STOP Sleep Apnea STOP Sleep Apnea - land development project manager: STOP Sleep Apnea - land development project manager Hx Hypertension Yes: CONTROLLED WITH MED 12/13/24 09:23 Hx Sleep Apnea No 12/13/24 09:23 CPAP BIPAP Do you snore loudly (louder No 12/13/24 09:23 than talking or can be heard Do you often feel tired/ No 12/13/24 09:23 fatigued/ sleepy during daytime? Has anyone observed you stop No 12/13/24 09:23 breathing during sleep? STOP Results Negative 12/13/24 09:23 QUESTION #5 FULL TEXT : Do you snore loudly (louder than talking or can be heard through closed doors)? 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 - land development project manager: 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 - land development project manager Tobacco Use Cigarettes 06/13/24 15:14 Smoking Status Former smoker 12/13/24 09:23 Hx Tobacco Use Yes: marijuana 12/13/24 09:23 Years Smoking Packs Smoked per Day Smoking Cessation Date was Yes - quit smoking within 15 12/13/24 09:23 within the last 15 years years Hx Smoking Cessation Date 10/29/22 12/13/24 09:23 Hx Smoking Cessation No 12/13/24 09:23 Counseling Hematologic Medial History Hematologic Hx - land development project manager: Hematologic Medical Hx - clinical documentation nurse Hx of Blood Transfusion No 12/13/24 09:23 Hx of Transfusion in last 3 No 12/13/24 09:23 Months Date of Last Transfusion (if within last 3 months) Ever experience any problems No 12/13/24 09:23 with transfusion(s)? Specify any problems Hx of Preganancy in last 3 No 12/13/24 09:23 Months Nurse Filling Out Transfusion DSCHRIBER 12/13/24 09:23 & Questions: Date: 12/13/24 12/13/24 09:23 Time: 12/13/24 09:23 Patient unable to answer at this time (ie. confused, unrespo /Reproduction History /Reproductive History - land development project manager: /Reproductive Hx- land development project manager Hx Now No 12/13/24 09:23 Gestational Age (in weeks): EDC: Hx Hx Para Hx Section SAB No 12/13/24 09:23 [facility] Medical History (Updated 12/13/24 @ 09:35 by Monica Pelletier) Cardiology follow-up encounter History of stress test First degree AV block Simple endometrial hyperplasia without atypia Wears glasses Post-menopausal Marijuana use Insulin dependent diabetes mellitus Thyroid disease Fatty liver High cholesterol Ulcerative colitis GERD (gastroesophageal reflux disease) Leg cramps History of echocardiogram Hypertension PONV (postoperative nausea and vomiting) Encounter for screening examination for sexually transmitted disease HPV test positive Pelvic pain Thickened endometrium Anxiety Stroke/cerebrovascular accident (11/02/22) Former tobacco use Near syncope Elevated troponin Abnormal EKG Hyponatremia Prolonged QT interval Polyneuropathy Occlusion of left internal carotid artery Ischemic stroke 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 Irritable bowel syndrome Celiac disease Ulcerative colitis Muscle spasm Hypothyroidism Hypertension Vitamin D deficiency Diabetes mellitus Lumbar spinal stenosis Lumbar disc herniation with radiculopathy Ambulatory dysfunction Intractable back pain Home Medications ?Medication ?Instructions ?Recorded ?Last Taken ?Type ergocalciferol (vitamin D2) 1,250 50,000 unit PO MOFR SUPPLEMENT 12/18/20 07/25/24 History mcg (50,000 unit) capsule thyroid (pork) 120 mg tablet 120 tablet PO DAILY THYROID 12/18/20 07/26/24 History atorvastatin 80 mg tablet 80 mg PO QHS cholesterol #30 tabs 11/04/22 07/25/24 Rx clopidogrel 75 mg tablet 75 mg PO DAILY BLOOD THINNER #30 11/04/22 07/25/24 Rx tabs carvedilol 6.25 mg tablet 6.25 mg PO BID 03/05/24 07/25/24 History pantoprazole 40 mg tablet,delayed 40 mg PO DAILY #30 tabs 05/22/24 07/26/24 Rx release sitagliptin phosphate 100 mg 100 mg PO QDAY 07/07/24 07/25/24 History tablet (Januvia) thyroid (pork) 30 mg tablet 30 mg PO MOWEFR 07/21/24 07/25/24 History ([place] Thyroid) glimepiride 2 mg tablet 3 mg PO BID 08/10/24 Unknown History insulin glargine 100 unit/mL (3 20 unit subcut DAILY 12/12/24 Unknown History mL) subcutaneous pen (Lantus Solostar U-100 Insulin) spironolactone 25 mg tablet 25 mg PO BID 12/12/24 Unknown History elderberry fruit 200 mg capsule 1,000 mg PO DAILY 12/13/24 Unknown History Allergy/AdvReac Type Severity Reaction Status Date / Time metformin Allergy Severe Hives Verified 12/13/24 09:03 prednisone Allergy Intermediate Itching Verified 12/13/24 09:03 aspirin Allergy mouth Verified 12/13/24 09:03 swelling gluten Allergy Abd Verified 12/13/24 09:03 cramps/diarrhea ibuprofen Allergy mouth Verified 12/13/24 09:03 swelling Sulfa (Sulfonamide Allergy pt can't Verified 12/13/24 09:03 Antibiotics) remember Family History Mother Heart disease Alzheimers disease Father Heart disease Hypertension CAD (coronary artery disease) Myocardial infarction Thyroid disorder Diabetes Sister Cancer Surgical History (Updated 12/13/24 @ 09:35 by Monica Pelletier) History of esophagogastroduodenoscopy (EGD) Hx of colonoscopy History of hysteroscopy History of back surgery (~2019) Hx of umbilical hernia repair S/P tubal ligation S/P cholecystectomy S/P tonsillectomy and adenoidectomy History of lumbar fusion History of lumbar discectomy Social History adopted: No household members: none number of children: 3 sexually active: Yes Smoking Status: Former smoker alcohol intake: never substance use type: marijuana and other details: Medical cannabis, usually daily. seatbelt use: always do you feel safe at home: Yes Audit: Pertinent Findings HISTORY of Pertinent Findings History of Pertinent Findings: EKG Pertinent Findings EKG Perinent findings August 17, 2024. Sinus 12/15/24 18:41 rhythm. First-degree AV block. Stress Test Pertinent Findings Stress test pertinent findings October 10, 2024. Ejection 12/15/24 18:41 fraction 73%. Rest and stress SPECT Cardiolite nuclear imaging demonstrates uniform tracer uptake and myocardial perfusion within normal limits. Echo Pertinent Findings Echo (EF%) pertinent findings October 10, 2024. Ejection 12/15/24 18:41 fraction 65%. Mild to moderate aortic valve stenosis. Consult Pertinent Findings Consult pertinent findings August 17, 2024. 12/15/24 18:44 Axel. 1. Atherosclerotic vascular disease-patient has documented occlusive disease of the left internal carotid and moderate renal artery stenosis. Patient is diabetic. Will evaluate heart with stress Myoview and echocardiogram. (See above) 2. Carotid artery disease- will repeat carotid Doppler. (See below) 3. Renal artery stenosis at 60%. Repeat renal artery duplex exam. Start losartan 25 mg 4. Hypertension?on spironolactone and carvedilol. Losartan is being added. 5. History of stroke-no residual deficits. Continue Plavix. Additional Pertinent Findings Additional pertinent findings Carotid Doppler done 12/15/24 18:41 September 06, 2024. 1. Less than 50% stenosis of the right internal carotid. 2. Total occlusion of the left internal carotid artery . 3. Patent and antegrade vertebrals bilaterally. Pertinent Findings Additional pertinent findings: Renal Artery Duplex Ultrasound performed on 09/06/24 0822 Recommendation Anesthesia Recommendation Anesthesia recommendation: OPTIMIZED for anesthesia
[2024-12-27] VITALS (22 sets, daily range): BP systolic 127–200; BP diastolic 53–94; PULSE 48–131; RESP 16–18; TEMP 36.2–36.8; O2SAT 90–98; BMI 36.4
[2024-12-27] MEDS: Lactated Ringers 1,000 ML 40 ML IV (07:00)
[2024-12-27] MEDS: Magnesium 2 GM for ERAS IV (07:10)
--- NOTE | 2024-12-27 07:21 | HP.PCM_ITS ---
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 Can[employer] Products Required: No Is patient in pain?: No Allergies metformin Allergy (Severe, Verified 09/13/24 14:02) Hivesprednisone Allergy (Intermediate, Verified 09/13/24 14:02) Itchingaspirin Allergy (Verified 09/13/24 14:02) mouth swellinggluten Allergy (Verified 09/13/24 14:02) Abd cramps/diarrheaibuprofen Allergy (Verified 09/13/24 14:02) mouth swellingSulfa (Sulfonamide Antibiotics) Allergy (Verified 09/13/24 14:02) pt can't remember Medications ?Medication ?Instructions ?Recorded ?Confirmed ?Type ergocalciferol (vitamin D2) 1,250 50,000 unit PO MOFR SUPPLEMENT 12/18/20 12/12/24 History mcg (50,000 unit) capsule thyroid (pork) 120 mg tablet 120 tablet PO DAILY THYROID 12/18/20 History atorvastatin 80 mg tablet 80 mg PO QHS cholesterol #30 tabs 12/12/24 Rx clopidogrel 75 mg tablet 75 mg PO DAILY BLOOD THINNER #30 3 12/12/24 Rx tabs carvedilol 6.25 mg tablet 6.25 mg PO BID 03/05/24 12/12/24 History pantoprazole 40 mg tablet,delayed 40 mg PO DAILY #30 tabs 05/22/24 5 Rx release vitamin C 30 mg-zinc citrate 1.1 1 tab PO DAILY 05/22/24 12/12/24 History mg-elderberry 25 mg chewable tablet (Sambucus Elderberry) sitagliptin phosphate 100 mg 100 mg PO QDAY 07/07/24 12/12/24 History tablet (Januvia) thyroid (pork) 30 mg tablet 30 mg PO MOWEFR 07/21/24 12/12/24 Histor y ([place] Thyroid) glimepiride 2 mg tablet 3 mg PO BID 08/10/24 12/12/24 History ondansetron 4 mg disintegrating 4 mg PO Q8H PRN 08/12/24 12/12/24 Histor y tablet insulin glargine 100 unit/mL (3 20 unit subcut DAILY 12/12/24 12/12/24 H istory mL) subcutaneous pen (Lantus Solostar U-100 Insulin) spironolactone 25 mg tablet 25 mg PO BID 12/12/24 12/12/24 History Is last menstrual period known: No Post menopausal: Yes Patient : No : No Nurse's Note: FU medication consult [facility] Medical History First degree AV block Abnormal EKG Hypothyroidism Simple endometrial hyperplasia without atypia Encounter for screening examination for sexually transmitted disease HPV test positive Pelvic pain Thickened endometrium Wears glasses Post-menopausal Marijuana use Insulin dependent diabetes mellitus Thyroid disease Fatty liver High cholesterol Ulcerative colitis GERD (gastroesophageal reflux disease) Leg cramps History of echocardiogram Hypertension PONV (postoperative nausea and vomiting) Marijuana smoker Anxiety Depression Diabetes Former smoker Stroke/cerebrovascular accident (11/02/22) Former tobacco use Head injury Near syncope Elevated troponin Hyponatremia Prolonged QT interval Polyneuropathy Occlusion of left internal carotid artery Ischemic stroke 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 Irritable bowel syndrome Celiac disease Ulcerative colitis Muscle spasm Hypertension Vitamin D deficiency Diabetes mellitus Lumbar spinal stenosis Lumbar disc herniation with radiculopathy Ambulatory dysfunction Intractable back pain Surgical History History of back surgery (~2019) Hx of umbilical hernia repair S/P tubal ligation S/P cholecystectomy S/P tonsillectomy and adenoidectomy History of lumbar fusion History of lumbar discectomy Family History Mother Heart disease Alzheimers diseaseFather Heart disease Hypertension CAD (coronary artery disease) Myocardial infarction Thyroid disorder DiabetesSister Cancer Social History adopted: No household members: none number of children: 3 sexually active: Yes Smoking Status: Former smoker alcohol intake: never substance use type: marijuana and other details: Medical cannabis, usually daily. seatbelt use: always do you feel safe at home: Yes HPI TVHBS Details: LEIDY AMADO is a 69 year old who presents for preop appointment. she has endometrial hyperplasia and is planning a hysterectomy for this. she has seen cardiology and is seeing her PCP thursday. she had an US that chowed a 7 cm uterus, d an c showed polyp with hyperplasia. denies any pelvic pain or pressure. she has had a history of stroke in the past, no vaginal bleeding, had d and c and hyperplasia diagnosed, not a candidate for hormonal therapy. needs to be medically optimized prior to surgery with hypertension and diabetes. Female Reproductive History Menopausal Symptoms: No night sweats History 3 Elective abortions Hx Para 3 Spontaneous abortions Hx # Term Pregnancies Ectopic pregnancies Hx # Pregnancies Multiple births # of living children 3 Past Pregnancies Del. Date Name GA/Weeks Outcome Route Bth Weight Infant Gen Labor Lgth Anesthesia Del Locatn Provider FOB Unknown 1985 Alicia Unknown 1989 Zoey Unknown 1996 Jeffrey ROS Const Constitutional: Denies fatigue, night sweats, weight gain or weight loss ENT ENT: Reports system reviewed and no additional complaints, except as documented Cardio Card: Denies chest pain Resp Resp: Denies cough or dyspnea GI GI: Reports as per HPI; Denies abdominal pain, constipation, nausea or vomiting : Denies nipple discharge, urinary frequency, urinary incontinence, urinary hesitancy, urinary urgency, vaginal discharge, vaginal dryness, vaginal odor or vaginal pruritus Musc Musc: Reports arthralgias and back pain; Denies muscle weakness Skin Skin/Breast: Denies alopecia, change in hair, dry skin, breast mass, breast pain, breast skin changes or nipple discharge Neuro Neuro: Reports system reviewed and no additional complaints, except as documented Psych Psych: Reports system reviewed and no additional complaints, except as documented Endo Endo: Denies cold intolerance, excessive sweating, heat intolerance or polydipsia Antonio/Lymph Hematologic/Lymphatic: Denies easy bleeding, Denies easy bruising and Denies lymphadenopathy Exam Const General: cooperative, healthy appearing, comfortable, no acute distress and well developed Orientation: alert [facility] Head: normal to inspection and normocephalic Ears: hearing grossly normal bilaterally and external ears normal Nose: external nose normal and nares normal Face and sinus: normal facial exam Neck Neck: normal visual inspection and no lymphadenopathy Thyroid: thyroid normal Chest Chest palpation & inspection: normal inspection of the chest Resp Effort & Inspection: normal respiratory effort Auscultation: clear to auscultation bilaterally Cardio Rate: regular rate Rhythm: regular rhythm Heart Sounds: S1 normal, S2 normal and murmur systolic GI Inspection: normal to inspection and non-distended Palpation: soft and no hepatosplenomegaly General: bladder normal to palpation External Female Exam: normal external appearance and normal appearance of the urethra Urethra: normal appearance of the urethra, normal palpation and no discharge Speculum Exam - Vagina: normal appearance of the vagina and normal vaginal discharge Speculum Exam - Cervix: normal appearance of the cervix and nontender Bimanual Exam- Vagina & Uterus: normal bimanual exam, uterine size normal, bladder normal to palpation, uterine shape normal, No tender, uterine mobility normal, consistency normal, normal palpation and non-tender Bimanual Exam- Adnexa, other: normal adnexae, adnexae mobile, no masses and normal Pelvic Support: normal Musc Other: gross motor intact no deficits, full bilateral strength Skin General: no rashes or lesions noted Neuro General: patient alert, patient awake, moves all extremities and no focal motor deficits Motor: muscle tone normal throughout Extrem General: normal to inspection and no pedal edema Psych Appearance: grossly normal Mental Status: mental status grossly normal Affect: normal affect Speech and Movement: speech and movement normal Coding Level of Care Code No Charge Diagnoses Endometrial hyperplasia without atypia N85.00 Assessment and Plan Assessment and Plan (1) Endometrial hyperplasia without atypia: Status: Acute Comment: not a hormonal candidate, plan tvhbs, s/p cardio and pcp clearance Plan After discussing the patient's diagnosis and treatment plan options, patient wishes to proceed with surgical management. I have discussed with the patient the risks, benefits, and alternatives of the procedure which include but are not limited to risks of anesthesia, bleeding, infection, possible damage to bowel, bladder, or surrounding vasculature which could lead to additional surgery to evaluate any complications. Patient agrees to procedure and wishes to proceed. ACOG/uptodate references given for additional information regarding procedure. last dose plavix last UPDATE- I have seen the patient and performed any clinically relevant updates to the history and physical exam. Anushka Hall MD
[2024-12-27] MEDS: Enoxaparin 40 MG/0.4 ML Syringe SC (07:23)
[2024-12-27] MEDS: Phenazopyridine 95 MG Tablet 190 MG PO (07:23)
[2024-12-27] MEDS: Scopolamine 1mg/72hr Patch 1 PATCH TD (07:23)
[2024-12-27] MEDS: Insulin Lispro 100 UNIT/ML INSULN.PEN SC ×4 (07:24→20:22)
[2024-12-27] MEDS: Acetaminophen 500 MG Tablet 1000 MG PO ×4 (07:24→23:35)
[2024-12-27] MEDS: Gabapentin 600 MG Tablet PO (07:24)
[2024-12-27 07:35] LABS: Bedside Glucose 222 mg/dL (74-106)
--- NOTE | 2024-12-27 07:52 | PCM.PRE.AN2 ---
ASA Classification* ASA Classification ASA Classification: 3 Assessment & Plan Anesthesia* Anesthesia Assessment Anesthesia Assessment: Discussed sedation and/or anesthesia options, risks, benefits, and alternatives with patient/parents/legal guardian/POA. Questions invited. The patient/parents/legal guardian/POA seems to understand and agrees to proceed with anesthesia plan. Reviewed the physical assessment, medical history, allergy history and patient home medications list prior to surgery/procedure/anesthetic and documented any changes. Performed airway and anesthesia risk assessments. Anesthesia Type Anesthesia Type: General (Patient has moderate aortic stenosis. Avoid heart increase in heart rate or decrease in blood pressure. Consider phenylephrin to treat.) History Source History Obtained from:: Patient and Chart Anesthesia Focused Assessment* Temperature: 98.2 F Pulse Rate: 64 Blood Pressure: 153/65 Respiratory Rate: 18 Pulse Ox: 97 Oxygen Delivery Method: Room Air Airway Assessment Mouth opens: >3 cm Mallampati Score: IV Teeth Condition: Caps/Crowns (Patient has caps on 9, 10, 11.) and Missing (Patient has several missing teeth. Rest of the teeth are tight.) Neck Range of motion (ROM): Full ROM Focused Labs Anesthesia Preop lab: CBC WBC 11.5 K/mm3 (4.4-11.0) H 12/15/24 12:37 12/15/24 RBC 4.65 M/mm3 (4.2-5.4) 12/15/24 12:37 12/15/24 Hgb 13.9 g/dL (12.0-15.0) 12/15/24 12:37 12/15/24 Hct 41.4 % (37-47) 12/15/24 12:37 12/15/24 Plt Count 354 K/mm3 (150-450) 12/15/24 12:37 12/15/24 CHEMISTRY Potassium 4.1 mmol/L (3.3-5.1) 12/15/24 12:37 12/15/24 Sodium 137 mmol/L (133-145) 12/15/24 12:37 12/15/24 Magnesium 1.8 mg/dL (1.5-2.2) 12/15/24 12:36 12/15/24 Phosphorus 1.8 mg/dL (2.5-4.9) L 03/06/24 04:46 03/06/24 BUN 19 mg/dL (4-19) 12/15/24 12:37 12/15/24 Creatinine 0.72 mg/dL (0.70-1.20) 12/15/24 12:37 12/15/24 Glucose 148 mg/dL (70-99) H 12/15/24 12:37 12/15/24 POC Glucose 222 mg/dL (74-106) H 12/27/24 07:00 12/27/24 TSH 0.836 uIU/mL (0.300-4.200) 12/15/24 12:37 12/15/24 COAG PT 14.0 SECONDS (11.7-14.9) 03/06/24 04:46 03/06/24 Pre-Assessment Diagnosis/Proposed Procedure Planned Operative Procedure(s): HYSTERECTOMY TLH BSO Anesthesia History Anesthesia History - learning technologies specialist: Anesthesia History - learning technologies specialist Hx Hospitalization No 12/13/24 09:23 Any Problems With Anesthesia Yes: N,V 12/13/24 09:23 Cholinesterase deficiency No 12/13/24 09:23 You/Your Family Experience No 12/13/24 09:23 fever (hyperthermia) with Relationship Recent Exposure to Contagious No 12/27/24 07:00 Disease Does patient have nerve No 12/13/24 09:23 stimulator Patient instructed to have device shut off --Does patient have Pacemaker No 12/27/24 07:00 or ICD? When Was Last Pacemaker Check QUESTION #4 FULL TEXT: You/Your Family Experience fever (hyperthermia) with Anesthesia Last Oral Intake Last Oral intake: Last Oral Intake NPO since 06:00 12/27/24 07:00 Meds taken in AM with sips of Yes 12/27/24 07:00 water? Meds patient instructed to see med rec 12/27/24 07:00 take am of surgery Any additional information?: Yes Meds taken in AM with sips of water?: Yes PONV PONV - learning technologies specialist: PONV - learning technologies specialist Female Yes 12/13/24 09:23 HX of Motion Sickness No 12/13/24 09:23 HX of N/V After Surgery Yes 12/13/24 09:23 Non-Smoker Yes 12/13/24 09:23 Duration of Surgery greater Yes 12/13/24 09:23 than 60 minutes Number of Risk Factors 4 12/13/24 09:23 PONV Score Severe Risk 12/13/24 09:23 Height & Weight Height & Weight: Anesthesia: Height & Weight Height 5 ft 12/27/24 07:00 Weight: 84.7 kg 12/27/24 07:00 Body Mass Index (BMI) 36.4 12/27/24 07:00 Respiratory Assessment Respiratory Assessment - learning technologies specialist: Respiratory Tract Infection Hx - learning technologies specialist Hx Respiratory Tract Infection No 12/13/24 09:23 STOP Sleep Apnea STOP Sleep Apnea - learning technologies specialist: STOP Sleep Apnea - learning technologies specialist Hx Hypertension Yes: CONTROLLED WITH MED 12/13/24 09:23 Hx Sleep Apnea No 12/13/24 09:23 CPAP BIPAP Do you snore loudly (louder No 12/13/24 09:23 than talking or can be heard Do you often feel tired/ No 12/13/24 09:23 fatigued/ sleepy during daytime? Has anyone observed you stop No 12/13/24 09:23 breathing during sleep? STOP Results Negative 12/13/24 09:23 QUESTION #5 FULL TEXT : Do you snore loudly (louder than talking or can be heard through closed doors)? 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 - learning technologies specialist: 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 - learning technologies specialist Tobacco Use Cigarettes 06/13/24 15:14 Smoking Status Former smoker 12/13/24 09:23 Hx Tobacco Use Yes: marijuana 12/13/24 09:23 Years Smoking Packs Smoked per Day Smoking Cessation Date was Yes - quit smoking within 15 12/13/24 09:23 within the last 15 years years Hx Smoking Cessation Date 10/29/22 12/13/24 09:23 Hx Smoking Cessation No 12/13/24 09:23 Counseling Hematologic Medial History Hematologic Hx - learning technologies specialist: Hematologic Medical Hx - health center associate Hx of Blood Transfusion No 12/13/24 09:23 Hx of Transfusion in last 3 No 12/13/24 09:23 Months Date of Last Transfusion (if within last 3 months) Ever experience any problems No 12/13/24 09:23 with transfusion(s)? Specify any problems Hx of Preganancy in last 3 No 12/13/24 09:23 Months Nurse Filling Out Transfusion DSCHRIBER 12/13/24 09:23 & Questions: Date: 12/13/24 12/13/24 09:23 Time: 0912/13/24 09:23 Patient unable to answer at this time (ie. confused, unrespo /Reproduction History /Reproductive History - learning technologies specialist: /Reproductive Hx- learning technologies specialist Hx Now No 12/13/24 09:23 Gestational Age (in weeks): EDC: Hx Hx Para Hx Section SAB No 12/13/24 09:23 Active Medications Active Medications: Current Medications Generic Name Dose Route Start Last Admin Trade Name Freq PRN Reason Stop Dose Admin Acetaminophen 1,000 mg 12/27/24 08:30 12/27/24 07:24 Acetaminophen 500 Mg Tablet PO 12/27/24 08:31 1,000 mg PREOP ONE Administration Dexamethasone Sodium Phosphate 8 mg 12/27/24 08:30 Dexamethasone 4 Mg/Ml Vial IV 12/27/24 08:31 X1 ONE Enoxaparin Sodium 40 mg 12/27/24 08:30 12/27/24 07:23 Enoxaparin 40 Mg/0.4 Ml Syringe SC 12/27/24 08:31 40 mg X1 ONE Administration Gabapentin 600 mg 12/27/24 08:30 12/27/24 07:24 Gabapentin 600 Mg Tablet PO 12/27/24 08:31 600 mg PREOP ONE Administration Lactated Ringer's 1,000 mls @ 40 mls/hr 12/27/24 08:30 12/27/24 07:00 IV 40 mls/hr .Q25H SUSANA Administration Cefazolin Sodium 2 gm/ N/A 20 mls @ 400 mls/hr 12/27/24 08:30 IV 12/27/24 08:32 PREOP ONE Magnesium Sulfate 2 gm/ 104 mls @ 208 mls/hr 12/27/24 08:30 12/27/24 07:10 Dextrose IV 12/27/24 08:59 208 mls/hr X1 ONE Administration Insulin Human Lispro 0 unit 12/27/24 08:30 12/27/24 07:24 Insulin Lispro 100 Unit/Ml Insuln.Pen SC 2 units Q4H PRN PRN Administration BG >/= 180, SEE PROTOCOL Protocol Ondansetron HCl 4 mg 12/27/24 08:30 Ondansetron 4 Mg/2 Ml Vial IV 12/27/24 08:31 X1 ONE Phenazopyridine HCl 190 mg 12/27/24 08:30 12/27/24 07:23 Phenazopyridine 95 Mg Tablet PO 12/27/24 08:31 190 mg X1 ONE Administration Scopolamine HBr 1 patch 12/27/24 08:30 12/27/24 07:23 Scopolamine 1mg/72hr Patch TD 12/27/24 08:31 1 mg X1 ONE Administration [facility] Medical History Cardiology follow-up encounter History of stress test First degree AV block Simple endometrial hyperplasia without atypia Wears glasses Post-menopausal Marijuana use Insulin dependent diabetes mellitus Thyroid disease Fatty liver High cholesterol Ulcerative colitis GERD (gastroesophageal reflux disease) Leg cramps History of echocardiogram Hypertension PONV (postoperative nausea and vomiting) Encounter for screening examination for sexually transmitted disease HPV test positive Pelvic pain Thickened endometrium Anxiety Stroke/cerebrovascular accident (11/02/22) Former tobacco use Near syncope Elevated troponin Abnormal EKG Hyponatremia Prolonged QT interval Polyneuropathy Occlusion of left internal carotid artery Ischemic stroke 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 Irritable bowel syndrome Celiac disease Ulcerative colitis Muscle spasm Hypothyroidism Hypertension Vitamin D deficiency Diabetes mellitus Lumbar spinal stenosis Lumbar disc herniation with radiculopathy Ambulatory dysfunction Intractable back pain Home Medications ?Medication ?Instructions ?Recorded ?Last Taken ?Type ergocalciferol (vitamin D2) 1,250 50,000 unit PO MOFR SUPPLEMENT 12/18/20 12/26/24 08:00 History mcg (50,000 unit) capsule thyroid (pork) 120 mg tablet 120 tablet PO DAILY THYROID 12/18/20 12/27/24 06:00 History atorvastatin 80 mg tablet 80 mg PO QHS cholesterol #30 tabs 11/04/22 12/26/24 20:45 Rx clopidogrel 75 mg tablet 75 mg PO DAILY BLOOD THINNER #30 11/04/22 12/22/24 Rx tabs carvedilol 6.25 mg tablet 6.25 mg PO BID 03/05/24 12/27/24 06:00 History pantoprazole 40 mg tablet,delayed 40 mg PO DAILY #30 tabs 05/22/24 12/27/24 06:00 Rx release sitagliptin phosphate 100 mg 100 mg PO QDAY 07/07/24 12/22/24 History tablet (Januvia) thyroid (pork) 30 mg tablet 30 mg PO MOWEFR 07/21/24 12/26/24 08:00 History ([place] Thyroid) glimepiride 2 mg tablet 3 mg PO BID 08/10/24 12/26/24 17:45 History insulin glargine 100 unit/mL (3 20 unit subcut DAILY 12/12/24 12/26/24 10:00 History mL) subcutaneous pen (Lantus Solostar U-100 Insulin) spironolactone 25 mg tablet 25 mg PO BID 12/12/24 12/26/24 20:00 History elderberry fruit 200 mg capsule 1,000 mg PO DAILY 12/13/24 12/26/24 08:00 History Allergy/AdvReac Type Severity Reaction Status Date / Time metformin Allergy Severe Hives Verified 12/27/24 07:03 prednisone Allergy Intermediate Itching Verified 12/27/24 07:03 aspirin Allergy mouth Verified 12/27/24 07:03 swelling gluten Allergy Abd Verified 12/27/24 07:03 cramps/diarrhea ibuprofen Allergy mouth Verified 12/27/24 07:03 swelling Sulfa (Sulfonamide Allergy pt can't Verified 12/27/24 07:03 Antibiotics) remember Family History Mother Heart disease Alzheimers disease Father Heart disease Hypertension CAD (coronary artery disease) Myocardial infarction Thyroid disorder Diabetes Sister Cancer Surgical History History of esophagogastroduodenoscopy (EGD) Hx of colonoscopy History of hysteroscopy History of back surgery (~2019) Hx of umbilical hernia repair S/P tubal ligation S/P cholecystectomy S/P tonsillectomy and adenoidectomy History of lumbar fusion History of lumbar discectomy Social History adopted: No household members: none number of children: 3 sexually active: Yes Smoking Status: Former smoker alcohol intake: never substance use type: marijuana and other details: Medical cannabis, usually daily. seatbelt use: always do you feel safe at home: Yes Review of Systems (Anesthesia) ROS Narrative System reviewed and no additional complaints, except as documented.
[2024-12-27] MEDS: Cefazolin 2 GM in Syringe 10 ML IV (08:30)
--- NOTE | 2024-12-27 08:30 | HYST_PTH ---
PATIENT: LEIDY AMADO LOC: MS3 U#:[id number] AGE/SX: 69/F ROOM: [facility] [place]12/27/[address]: Dr. Anushka Hall MD : 1955 BED: 1 DIS: 12/28/2024 SPEC #: [id number] RECD: 12/27/24 11:54 STATUS: ROSALINA JOSEPH #: [id number] LISA: 12/27/24 08:[address]: Anushka Hall DEPT: SURGICAL PATHOLOGY RECD BY: Zulma Daniels ENTERED: 12/27/24 12:18 SP TYPE: HYSTERECT OTHR DR: Dr. Preet Farrar, DO Tissues: Uterus, NOS Procedures: Surgery Specimen Level V HEADER OPERATION: ERAS, total vaginal hysterectomy PRE-OP DIAGNOSIS: Endometrial hyperplasia without atypia TISSUE SUBMITTED: A- Uterus, cervix MICROSCOPIC DIAGNOSIS A. Uterus and Cervix, endometrial hyperplasia, hysterectomy: * Cervix: no specific pathologic change. * Endometrium: weakly proliferative endometrium with benign endometrial polyp x2. * Myometrium: leiomyoma x2 (0.6 cm, 0.2 cm). MICROSCOPIC DESCRIPTION Slides are reviewed. GROSS DESCRIPTION A. Received in formalin in a container labeled with the patient's name, date of , and uterus, cervix is a 60.9 g uterus with attached cervix measuring 8.0 cm from fundus to ectocervix, 3.5 cm from anterior to posterior, and 2.8 cm from cornu to cornu. The serosa is spicer-pink, roughened, and appears previously disrupted. The anterior and posterior serosal reflections are shaggy, and definitive orientation is unable to be determined (no uterine or ovarian ligaments are discovered). 1 side is purple-red and more disrupted than the opposite surface. The ectocervix is spicer-pink, smooth, and 3.2 x 2.2 cm. There is a 1.0 x 0.5 cm ovoid os. The paracervical margin is inked black. The specimen is bivalved to reveal a corrugated endocervical canal (3.0 x 1.2 cm) with multiple nabothian cysts (measuring 0.3 cm in greatest dimension). The triangular endometrial cavity is 3.4 cm in length by 2.3 cm in width. There is red-spicer, velvety endometrium ranging from 0.1 to 0.2 cm in thickness. The more disrupted half of the specimen exhibits 2 polyps within the endometrial cavity measuring 0.6 x 0.5 x 0.2 cm and 0.7 x 0.6 x 0.3 cm. Each appears confined to the mucosal surface. The spicer-pink myometrium is grossly unremarkable with an average thickness of 1.3 cm. The less disrupted half of the specimen exhibits a 0.6 x 0.5 x 0.4 cm white whorled nodule with no hemorrhage or necrosis. Boatswain Mate sections:A1. Cervix and lower uterine segment bisected (inked orange where sections connect) from more disrupted halfA2-3. Cervix and lower uterine segment bisected (inked orange where sections connect) from less disrupted half A4. Full-thickness section of larger polyp with superficial section of remainder of larger polyp (submitted from more disrupted half)A5. Full-thickness section of smaller polyp with superficial section of remainder of smaller polyp (from more disrupted half)A6. Remainder of endometrium from more disrupted half (superficial sections x 3)A7. Full-thickness section with myometrial nodule from less disrupted halfA8-9. Entirety of endometrial cavity from last disrupted half (superficial sections) submitted sequentially from fundus to lower uterine segment NOTE: [place] ink does not indicate margin [facility] 12-27-2024 CPT:03021
[2024-12-27 08:33] LABS: Bedside Glucose 243 mg/dL (74-106)
[2024-12-27] MEDS: dexAMETHasone 4 MG/ML Vial 8 MG IV (08:35)
[2024-12-27] MEDS: Vasopressin 20 UNITS/ML Vial (08:45)
[2024-12-27] MEDS: Ondansetron 4 MG/2 ML Vial IV (09:44)
--- NOTE | 2024-12-27 10:04 | PCM.POST.ANE ---
Anesthesia: Postop Eval I Current Vital Signs Temperature: 97.7 F Pulse Rate: 52 Blood Pressure: 138/66 Respiratory Rate: 16 Pulse Ox: 95 Oxygen Delivery Method: Nasal Cannula Oxygen Flow Rate (L/min): 2 Assessment Airway patent: Yes Spontaneous unlabored respirations: Yes Mental status: Awake and Calm nausea: No Vomiting: No Anesthesia Complication: No Fluid Hydration Crystalloid volume administer (ml): 700 Total IV fluid infused: 700 Progress Note Anesthesia document: Postop Eval 1 completed: Yes
[2024-12-27 11:09] LABS: Bedside Glucose 305 mg/dL (74-106)
--- NOTE | 2024-12-27 11:16 | POSTOPAN2_ITS ---
Anesthesia Postop Eval I Sum Postop Eval Completion status Anesthesia document: Postop Eval 1 completed: Yes Anesthesia Postop Eval I Summary Anesthesia Postop Eval I Summary: Anesthesia Postop Eval I: Assessment Summary Airway patent Yes 12/27/24 10:05 [email or web address] [email or web address] Spontaneous unlabored Yes 12/27/24 10:05 ROLL [email or web address].[email or web address] respirations Mental status Awake,Calm 12/27/24 10:05 ROLL [email or web address].[email or web address] nausea No 12/27/24 10:05 ROLL TENDER.GDOTT Vomiting No 12/27/24 10:05 ROLL [email or web address].[email or web address] Anesthesia Postop Eval I: Fluid Summary Crystalloid volume administer 700 12/27/24 10:05 ROLL TENDER.GDOTT (ml) Colloids volume administered ( ml) Blood Product volume administered (ml) Total IV fluid infused 700 12/27/24 10:05 ROLL [email or web address].[email or web address] Anesthesia Postop Eval I: Summary Notes Anesthesia Complication No 12/27/24 10:05 ROLL [email or web address].[email or web address] Anesthesia Complication Comment: Post-operative progress note Anesthesia: Postop Eval II Evaluation Mental status: Awake and Calm Pain Level: 2 nausea: No Vomiting: No Complications Anesthesia Complication: No
--- NOTE | 2024-12-27 11:16 | PCM.POSTANE2 ---
Anesthesia Postop Eval I Sum Postop Eval Completion status Anesthesia document: Postop Eval 1 completed: Yes Anesthesia Postop Eval I Summary Anesthesia Postop Eval I Summary: Anesthesia Postop Eval I: Assessment Summary Airway patent Yes 12/27/24 10:05 CHIEF AIRPORT [email or web address] Spontaneous unlabored Yes 12/27/24 10:05 CHIEF AIRPORT GUIDE.[email or web address] respirations Mental status Awake,Calm 12/27/24 10:05 CHIEF AIRPORT GUIDE.[email or web address] nausea No 12/27/24 10:05 CHIEF AIRPORT GUIDE.[email or web address] Vomiting No 12/27/24 10:05 CHIEF AIRPORT GUIDE.[email or web address] Anesthesia Postop Eval I: Fluid Summary Crystalloid volume administer 700 12/27/24 10:05 CHIEF AIRPORT GUIDE.GDOTT (ml) Colloids volume administered ( ml) Blood Product volume administered (ml) Total IV fluid infused 700 12/27/24 10:05 CHIEF AIRPORT GUIDE.GDOTT Anesthesia Postop Eval I: Summary Notes Anesthesia Complication No 12/27/24 10:05 CHIEF AIRPORT GUIDE.GDOTT Anesthesia Complication Comment: Post-operative progress note Anesthesia: Postop Eval II Evaluation Mental status: Awake and Calm Pain Level: 2 nausea: No Vomiting: No Complications Anesthesia Complication: No
[2024-12-27] MEDS: 0.9% Normal Saline (1000mL) 1,000 ML 15 ML IV (11:45)
--- NOTE | 2024-12-27 12:12 | PCM.OPRPT ---
Problems Associated Problem List Diagnoses (1) Endometrial hyperplasia without atypia: Multi Select Codes Urinary/Genital Urinary/Genital CPT Codes: 04825 TVH <250 gr uterus Operative Report (Standard) Operative Information Date of Procedure: 12/27/24 Pre-Operative Diagnosis: see problem list details Post-Operative Diagnosis: same Surgery/Procedure Performed: total vaginal hysterectomy medical administrative assistant: Yes Instrument Tester: Isha Valderrama Tasks completed by property management assistant: Opening & closing and Retracting Type of Anesthesia: General RN Documented Start/Stop Times: Operation Date: 12/27/24 08:30 Case Time Into Pre-Op 12/27/24 06:33 Out of Pre-Op 12/27/24 08:14 Anesthesia Start 12/27/24 08:18 Into Room 12/27/24 08:18 Procedure Start 12/27/24 08:38 Procedure End 12/27/24 09:45 Anesthesia End 12/27/24 09:56 Out of Room 12/27/24 09:56 Into Recovery 12/27/24 10:00 Procedure Start Time: 08:38 Procedure Stop Time: 09:45 Select all DRAINS/GRAFTS/IMPLANTS that apply: Drains Drain details: porter Estimated Blood Loss: 150 Specimen collected: Yes Description of specimen(s) removed: uterus Description of surgery: Patient was taken to the operating room and was placed under general anesthesia was prepped and draped in normal sterile fashion in the dorsal lithotomy position. Preoperative antibiotics and SCDs and Porter catheter was placed inside the bladder. Weighted speculum was placed in the vagina and the anterior and posterior lip of the cervix was grasped with 2 Linn clamps and circumferentially injected with dilute vasopressin. A circumferential incision was made with a scalpel and the posterior cul-de-sac was entered into sharply and a longneck speculum was placed. The anterior cul-de-sac was also dissected down and entered into sharply and the uterosacral ligaments were clamped cut and suture ligated bilaterally followed by the cardinal ligaments which were Clamped cut and suture ligated bilaterally with 0 Monocryl. The uterus serially descended and progressive bites were taken bilaterally up to the level of the utero-ovarian ligament bilaterally which was clamped transected and double ligated with 0 Monocryl suture and 0 Vicryl free tie. Bilateral ovaries were well visualized and noted be within normal limits and the bilateral fallopian tubes were unable to be completely visualized due to scar tissue and previous surgery so unable to be removed. additional sutures for hemoastsis needed around the cuff and then hemostasis was noted. The vagina was closed with [id number] 0 Vicryl pop offs including the posterior and anterior peritoneum in the reapproximation. Excellent hemostasis was noted. All instruments removed from the vagina clear urine was noted at the end of the procedure. Surgical Findings: nl uterus and ovaries. Complications Complications: No
--- NOTE | 2024-12-27 12:15 | PCM.DC ---
Discharge Instructions Diet Discharge Diet: No restrictions DC O2, CPAP, BIPAP needs Home O2 Discharge instructions: No Dressing / Incision Discharge Activity: Return to Normal Activity, May Not Drive (while taking narcotic pain medications.) and May Shower May resume sexual activity in: 6-8 weeks Dressing / Incision Call your doctor if your incision/area has: Continuous Slow Oozing, Sudden Increased Bleeding, Increased Pain/ Swelling, Increased Redness and Foul Smelling Discharge Call your doctor if you observe: Fever of 101 or Higher, Inability to urinate, Inability to have a bowel movement and Using more than 1 pad per hour Follow Up Care Please Follow Up With: Anushka Hall MD Test Results: Test results from this visit will be discussed in further detail at your follow-up appointment, if applicable. Discharge Plan Admission Attending Provider: Anushka Hall Primary Care Provider: Preet Farrar Instructions Print Language: Bulgarian Discharge Orders/Prescriptions Prescriptions: New oxycodone-acetaminophen [Percocet] 5-325 mg tablet 1 tab PO Q4H PRN (Reason: pain) 7 Days Qty: 20 0RF No Action Januvia 100 mg tablet 100 mg PO QDAY glimepiride 2 mg tablet 3 mg PO BID thyroid (pork) 120 MG tablet 120 tablet PO DAILY ergocalciferol (vitamin D2) 50,000 UNIT capsule 50,000 unit PO MOFR atorvastatin 80 mg Tablet 80 mg PO QHS Qty: 30 2RF clopidogrel 75 mg Tablet 75 mg PO DAILY Qty: 30 2RF carvedilol 6.25 mg tablet 6.25 mg PO BID spironolactone 25 mg tablet 25 mg PO BID pantoprazole 40 mg tablet,delayed release (DR/EC) 40 mg PO DAILY Qty: 30 0RF insulin glargine [Lantus Solostar U-100 Insulin] 100 unit/mL (3 mL) insulin pen 20 unit subcut DAILY thyroid (pork) [[place] Thyroid] 30 mg tablet 30 mg PO MOWEFR elderberry fruit 200 mg capsule 1,000 mg PO DAILY Referrals / Follow Up: Preet Farrar DO [Primary Care Provider] - Disposition Disposition (needs filled in before D/C Order can be placed): Home, Self Care
[2024-12-27 13:15] LABS: Hematocrit 39.2 % (37-47); Hemoglobin 13.4 g/dL (12.0-15.0); Mean Corp Hgb Conc 34.2 g/dL (32-36); Mean Corpuscular Hgb 29.8 pg (27.0-32.0); Mean Corpuscular Volume 87.1 fL (81-99); Mean Platelet Vol. 9.6 fl (6.2-12.0); Platelet Count 332 K/mm3 (150-450); RBC Distribution Width CV 13.2 % (11.6-14.6); RBC Distribution Width SD 41.4 fl (35.1-43.9); White Blood Count 15.7 K/mm3 (4.4-11.0)
[2024-12-27] MEDS: oxyCODONE 5 MG Tablet PO ×2 (15:16→16:50)
--- NOTE | 2024-12-27 16:39 | PCM.PN.BLA ---
Progress Note patient seen- pain fairly controlled, catheter replaced and heart rate improved now, bp still elevated, BS 299 and will consult medicine for assistance with management.
[2024-12-27 16:55] LABS: Bedside Glucose 299 mg/dL (74-106)
--- NOTE | 2024-12-27 17:29 | PN_ITS ---
Subjective Subjective Patient is a 69-year-old female with a past medical history as outlined was admitted to the service of gynecology for total vaginal hysterectomy on 12/27/2024. Hospitalist service was consulted afterwards for medical management on account of labile blood pressure. Patient does have a history of high blood pressure. She says she takes spironolactone and carvedilol. She do the carvedilol this morning but had not yet taken the spironolactone as she usually took that in the evening. She denied any headache, blurred vision, chest pain, shortness of breath or abdominal pain. Review of symptoms otherwise negative. Vitals at time of review were blood pressure 151/73, pulse rate of 94 and respiratory rate of 18. Temperature was 97.4 Fahrenheit. She was saturating at 95% on 2 L of oxygen. CBC showed WBC of 15.7 hemoglobin of 18.4 and platelets of 332. Objective Data Objective Data Vital Signs: Vital Signs Temp Pulse Resp BP Pulse Ox O2 Del Method O2 Flow Rate 98.0 F 96 16 178/74 H 98 Nasal Cannula 2 12/27/24 16:40 12/27/24 16:40 12/27/24 16:40 12/27/24 16:40 12/27/24 16:40 12/27/24 16:40 12/27/24 16:40 Oxygen Flow Rate (L/min) 2 Oxygen Delivery Method Nasal Cannula Weight: 186 lb 11.704 oz Body Mass Index (BMI) 36.4 Intake & Output: Intake and Output for Last 24 Hours 12/25/24 12/26/24 12/27/24 23:59 23:59 23:59 Intake Total 1124 / 1124 Output Total 1760 / 1760 Balance -636 / -636 Lab / Micro Data 12/27/24 13:00 12/15/24 12:37 Labs: Laboratory Results - last 24 hr 12/27/24 07:00: POC Glucose 222 H 12/27/24 08:15: POC Glucose 243 H 12/27/24 10:50: POC Glucose 305 H 12/27/24 13:00: WBC 15.7 H, RBC 4.50, Hgb 13.4, Hct 39.2, MCV 87.1, MCH 29.8, MCHC 34.2, RDW Std Deviation 41.4, RDW Coeff of Neida 13.2, Plt Count 332, MPV 9.6 12/27/24 16:37: POC Glucose 299 H Physical Exam Const alert, oriented x3, no apparent distress and well nourished General Appearance: cooperative and well developed HEENT normocephalic, head/scalp atraumatic, TM's normal bilaterally, moist oral mucous membranes and oropharynx normal Eyes PERRL and EOMs intact bilaterally Neck no lymphadenopathy and supple Lymph Lymphatic: no lymphadenopathy noted and no lymphedema noted Resp normal respiratory effort, normal air movement and clear to auscultation bilaterally Cardio regular rate, regular rhythm, S1 normal heart sound, S2 normal heart sound and no murmurs GI normal to inspection, nondistended, normoactive bowel sounds, soft to palpation, non-tender and non-distended Extremity normal capillary refill, no clubbing, cyanosis or edema and no calf tenderness General Extremity: no tenderness to palpation of joints or extremities Skin General Skin Exam: no breakdown Neuro CN's II-XII intact bilaterally, no focal motor deficits and no sensory deficits noted Motor Exam: strength 5/5 throughout and general weakness Psych thought process normal, cooperative and affect normal Appearance: appropriate Assessment & Plan Assessment/Plan (1) History of total vaginal hysterectomy (TVH): (2) Hypertension: PLAN: Plan #Endometrial hyperplasia * S/p total vaginal hysterectomy on 12/27/2024. * Management as per primary team gynecology. * #Hypertension * Blood pressure has been labile with her blood pressure being up in the 170s initially during review but came down to the 150s systolic. * She does have a history of high blood pressure and also has renal artery stenosis which could be contributing to the poorly controlled blood pressure. * She takes carvedilol which she took this morning. She is also on spironolactone which she did not take this morning she says usually took it in the evenings. * Resume carvedilol and spironolactone. * IV hydralazine as needed #History of CVA * Had a subacute cortical gyral ischemic infarction in October 2022. * On Plavix and high intensity statin. Per gynecology to resume Plavix tomorrow. Not on aspirin due to allergy to aspirin. * #Type 2 diabetes mellitus: * On Glimepiride. Also on Lantus 20 units daily. Insulin sliding scale. * Accu-Cheks ACHS. * Also takes sitagliptin. * #Hypothyroidism: On [place] Thyroid. DVT prophylaxis: As per primary service. Thank you for the courtesy of the consult. Hospitalist service will continue to follow with you. Charges/Coding Visit Charges Inpatient E&M: 92963 Subs Hosp L2
[2024-12-27] MEDS: Carvedilol 6.25 MG Tablet PO (18:43)
[2024-12-27] MEDS: Atorvastatin Calcium 80 MG Tablet PO (20:15)
[2024-12-27] MEDS: Docusate Sodium 100 MG Capsule PO (20:15)
[2024-12-27] MEDS: Spironolactone 25 MG Tablet PO (20:16)
[2024-12-27 20:36] LABS: Bedside Glucose 231 mg/dL (74-106)
--- NOTE | 2024-12-27 20:50 | NURSING ---
pt up to chairx 1. pt tolerated it wll
[2024-12-28 00:20] VITALS: BP 124/58; PULSE 81; RESP 18; TEMP 37.1; O2SAT 95
[2024-12-28 05:00] VITALS: BP 120/66; PULSE 70; RESP 17; TEMP 37.1; O2SAT 94
[2024-12-28] MEDS: Thyroid 15 MG Tablet 30 MG PO (05:07)
[2024-12-28] MEDS: Thyroid 60 MG Tablet 120 MG PO (05:07)
[2024-12-28] MEDS: Insulin Lispro 100 UNIT/ML INSULN.PEN SC ×2 (06:26→14:10)
[2024-12-28 06:45] LABS: Bedside Glucose 183 mg/dL (74-106)
[2024-12-28 07:03] LABS: Hematocrit 38.7 % (37-47); Hemoglobin 13.4 g/dL (12.0-15.0); Mean Corp Hgb Conc 34.6 g/dL (32-36); Mean Corpuscular Volume 86.8 fL (81-99); Mean Platelet Vol. 9.8 fl (6.2-12.0); Platelet Count 332 K/mm3 (150-450); RBC Distribution Width CV 13.2 % (11.6-14.6); RBC Distribution Width SD 41.9 fl (35.1-43.9); Red Blood Count 4.46 M/mm3 (4.2-5.4); White Blood Count 16.8 K/mm3 (4.4-11.0)
[2024-12-28 07:27] LABS: Anion Gap 13 (5-15); BUN 16 mg/dL (4-19); BUN/Creat Ratio 25.4 RATIO (10-20); Chloride 95 mmol/L (98-108); Creatinine, Serum 0.62 mg/dL (0.70-1.20); EST Glomerular Filtration Rate 97 (>60); Glucose 170 mg/dL (70-99); Potassium 3.8 mmol/L (3.3-5.1); Sodium Level 132 mmol/L (133-145)
[2024-12-28 08:00] VITALS: BP 147/66; PULSE 72; RESP 14; TEMP 36.9; O2SAT 93
[2024-12-28 08:11] VITALS: PULSE 72; RESP 14; O2SAT 93
--- NOTE | 2024-12-28 08:29 | PN.OBGYN_ITS ---
Subjective Subjective Patient doing well without complaints overall. Tolerating clears, bps improved. needs to have cath out, ready to try. Denies chest pain, shortness of breath, calf pain/swelling, fevers, chills, lightheadedness. Objective Data Objective Data Vital Signs: Vital Signs Temp Pulse Resp BP Pulse Ox O2 Del Method O2 Flow Rate 98.5 F 72 14 147/66 H 93 Room Air 2 12/28/24 08:00 12/28/24 08:11 12/28/24 08:11 12/28/24 08:00 12/28/24 08:11 12/28/24 08:11 12/27/24 20:10 FiO2 99 12/27/24 20:10 Oxygen Flow Rate (L/min) 2 Oxygen Delivery Method Room Air Weight: 186 lb 11.704 oz Body Mass Index (BMI) 36.4 Intake & Output: Intake and Output for Last 24 Hours 12/26/24 12/27/24 12/28/24 23:59 23:59 23:59 Intake Total 1364 / 1364 371.5 / 371.5 Output Total 2160 / 2160 800 / 800 Balance -796 / -796 -428.5 / -428.5 Lab / Micro Data 12/28/24 06:14 12/28/24 06:14 Labs: Laboratory Results - last 24 hr 12/27/24 08:15: POC Glucose 243 H 12/27/24 10:50: POC Glucose 305 H 12/27/24 13:00: WBC 15.7 H, RBC 4.50, Hgb 13.4, Hct 39.2, MCV 87.1, MCH 29.8, MCHC 34.2, RDW Std Deviation 41.4, RDW Coeff of Neida 13.2, Plt Count 332, MPV 9.6 12/27/24 16:37: POC Glucose 299 H 12/27/24 20:19: POC Glucose 231 H 12/28/24 06:14: WBC 16.8 H, RBC 4.46, Hgb 13.4, Hct 38.7, MCV 86.8, MCH 30.0, MCHC 34.6, RDW Std Deviation 41.9, RDW Coeff of [place] 13.2, Plt Count 332, MPV 9.8, Sodium 132 L, Potassium 3.8, Chloride 95 L, Carbon Dioxide 24.0, Anion Gap 13, BUN 16, Creatinine 0.62 L, Estim Creat Clear Calc 64.10, Est GFR (MDRD) Non- Af 97, BUN/Creatinine Ratio 25.4 H, Glucose 170 H, Calcium 9.0 12/28/24 06:24: POC Glucose 183 H ROS Constitutional Constitutional: Reports systems reviewed and no addt'l complaints, except as documented Cardiovascular Cardiovascular: Reports systems reviewed and no addt'l complaints, except as documented Respiratory/Chest Respiratory/Chest: Reports systems reviewed and no addt'l complaints, except as documented Gastrointestinal Gastrointestinal: Reports systems reviewed and no addt'l complaints, except as documented Physical Exam Const alert, oriented x3 and no apparent distress HEENT Head and Scalp: atraumatic Resp normal respiratory effort GI soft to palpation and non-tender Assessment & Plan (1) History of total vaginal hysterectomy (TVH): COMMENT: SM endometrial hyperplasia (2) Endometrial hyperplasia without atypia: COMMENT: not a hormonal candidate, plan tvhbs, needs cardio and pcp clearance (3) History of CVA (cerebrovascular accident): (4) Dyslipidemia: (5) Renal artery stenosis: (6) Carotid artery disease: (7) Atherosclerotic vascular disease: PLAN: Plan patient is s/p tvh POD 1 1. routine ERAS protocol postop care- increase ambulation, dc porter, advance diet and continue oral control of pain. lovenox and scds for dvt prophylaxis, patient stable for discharge to home once meeting all criteria. appreciate medicine following for bp and BS control.
--- NOTE | 2024-12-28 08:31 | PN.HOSP_ITS ---
Reason for Visit Reason for Visit: Diagnoses Essential (primary) hypertension (12/27/24) Endometrial hyperplasia, unspecified (12/27/24) Encounter for other preprocedural examination (12/27/24) Acquired absence of both cervix and uterus (12/27/24) Objective Data Objective Data Vital Signs: Vital Signs Temp Pulse Resp BP Pulse Ox O2 Del Method O2 Flow Rate 98.5 F 72 14 147/66 H 93 Room Air 2 12/28/24 08:00 12/28/24 08:11 12/28/24 08:11 12/28/24 08:00 12/28/24 08:11 12/28/24 08:11 12/27/24 20:10 FiO2 99 12/27/24 20:10 Oxygen Flow Rate (L/min) 2 Oxygen Delivery Method Room Air Weight: 186 lb 11.704 oz Body Mass Index (BMI) 36.4 Intake & Output: Intake and Output for Last 24 Hours 12/26/24 12/27/24 12/28/24 23:59 23:59 23:59 Intake Total 1364 / 1364 371.5 / 371.5 Output Total 2160 / 2160 800 / 800 Balance -796 / -796 -428.5 / -428.5 Lab / Micro Data 12/28/24 06:14 12/28/24 06:14 Labs: Laboratory Results - last 24 hr 12/27/24 08:15: POC Glucose 243 H 12/27/24 10:50: POC Glucose 305 H 12/27/24 13:00: WBC 15.7 H, RBC 4.50, Hgb 13.4, Hct 39.2, MCV 87.1, MCH 29.8, MCHC 34.2, RDW Std Deviation 41.4, RDW Coeff of Neida 13.2, Plt Count 332, MPV 9.6 12/27/24 16:37: POC Glucose 299 H 12/27/24 20:19: POC Glucose 231 H 12/28/24 06:14: WBC 16.8 H, RBC 4.46, Hgb 13.4, Hct 38.7, MCV 86.8, MCH 30.0, MCHC 34.6, RDW Std Deviation 41.9, RDW Coeff of Neida 13.2, Plt Count 332, MPV 9.8, Sodium 132 L, Potassium 3.8, Chloride 95 L, Carbon Dioxide 24.0, Anion Gap 13, BUN 16, Creatinine 0.62 L, Estim Creat Clear Calc 64.10, Est GFR (MDRD) Non- Af 97, BUN/Creatinine Ratio 25.4 H, Glucose 170 H, Calcium 9.0 12/28/24 06:24: POC Glucose 183 H Physical Exam Narrative Seen and examined. Patient denies any significant vaginal bleeding after vaginal hysterectomy. Denies dysuria. Voiding urine. Did not had BM today but had yesterday. Physical exam General: Alert, Oriented x3, Cooperative HEENT: Atraumatic, PERRLA, EOMI, Normocephalic Oral: No Gingival or Mucosal Lesions/ Ulcerations Neck: Supple, No JVD, Negative Carotid Bruits Chest wall/Lungs: Air entry diminished in bilateral lung bases. No crepitation/rhonchi Cardiovascular: Regular rate, Regular Rhythm, Normal S1, Normal S2, No M/G/R Abdomen: Bowel Sounds Present, Soft, Non Tender, Non-Distended : No dysuria. No renal angle tenderness. No suprapubic tenderness. Extremities: No edema, Capillary Refill Less than 3 Seconds Skin: No rashes, No breakdown Musculoskeletal: No Tenderness to Palpation of Joints or Extremities Neurological: Cranial nerves II-XII grossly intact, DTR 2+/4. No acute focal neurological deficit. Psych/Mental Status: Normal Affect, Appropriate. Assessment & Plan Assessment/Plan (1) History of total vaginal hysterectomy (TVH): (2) Hypertension: PLAN: Plan 69-year-old female was admitted with left abdominal/flank pain. Patient has endometrial hyperplasia and admitted for elective hysterectomy. Ultrasound showed 7 cm uterus and D&C shows polyp with hyperplasia. Denied any pelvic pain or pressure #Endometrial hyperplasia * S/p total vaginal hysterectomy on 12/27/2024. * Management as per primary team gynecology. * #Hypertension * 12/28: Blood pressure fluctuates, 120/66-178/74. * She does have a history of high blood pressure and also has renal artery stenosis which could be contributing to the poorly controlled blood pressure. * She takes carvedilol which she took this morning. She is also on spironolactone which she did not take this morning she says usually took it in the evenings. * Resume carvedilol and spironolactone. * IV hydralazine as needed #History of CVA * Had a subacute cortical gyral ischemic infarction in October 2022. * On Plavix and high intensity statin. Per gynecology to resume Plavix tomorrow. Not on aspirin due to allergy to aspirin. * No residual deficit for * #Type 2 diabetes mellitus: * On Glimepiride. Also on Lantus 20 units daily. Insulin sliding scale. * Accu-Cheks ACHS. * Also takes sitagliptin. 12/28: Glucose varies. It is variable 181 to 222. Insulin dose adjusted according #Hypothyroidism: On [place] Thyroid. DVT prophylaxis: As per primary service. Patient is medically stable to be discharged Charges/Coding Visit Charges Inpatient E&M: 18444 Subs Hosp L2
[2024-12-28] MEDS: Pantoprazole Sodium 40 MG Tablet PO (08:40)
[2024-12-28] MEDS: Docusate Sodium 100 MG Capsule PO (08:40)
[2024-12-28] MEDS: Acetaminophen 500 MG Tablet 1000 MG PO ×2 (08:40→14:10)
[2024-12-28] MEDS: Spironolactone 25 MG Tablet PO (08:40)
[2024-12-28] MEDS: Glimepiride 1 MG Tablet 2 MG PO (08:40)
[2024-12-28] MEDS: Carvedilol 6.25 MG Tablet PO (08:41)
[2024-12-28] MEDS: Enoxaparin 40 MG/0.4 ML Syringe SC (08:41)
[2024-12-28] MEDS: Insulin Glargine-YFGN 100 UNIT/ML Pen 20 UNIT SC (08:41)
--- NOTE | 2024-12-28 10:51 | NURSING ---
DR GILES REVIEWED HIS NEW ORDERS W/THIS NURSE, HES AWARE PT IS REFUSING ANY FLUIDS, SHE SAID SHE HAS HAD ENOUGH FLUIDS AND REFUSING TO HAVE HER LONG ACTING INSULIN DECREASED, ORDERS CHANGED BY DR GILES
[2024-12-28 11:31] LABS: Bedside Glucose 181 mg/dL (74-106)
--- NOTE | 2024-12-28 12:21 | CASEMGMT ---
OLVIN CHONG Assessment: Face to Face with pt for initial transition planning/care coordination assessment. RN CASTILLO introduced self and role at [facility], pt voices understanding and consents to assessment. Pt is A&O x4 and answers all questions appropriately at this time. Pt lying in bed in no distress. Care providers, pharmacy, and demographics verified/updated. Strata: 2 Admitting Dx: Hysterectomy, TLH, Bilateral Salpingectomy PCP: Charan Specialists: Joseph Johnson Preferred Pharmacy: [facility] Insurance: [facility] Dual Complete PRABHAKAR Prescription Benefit: yes LNOK: Sister, Diamond; Daughter, Zoey Living Arrangements: Pt lives alone in a 1 level home with 3 steps to enter. ADLs: Pt I with ADLs and IADLs. Transportation: Pt drives self and denies concerns with transportation. DME: [employer] and supplies HHC/SNF: previously at [facility]. Previously had HHC, does not recall agency. Pt states no concerns with going home at time of dc. Pt states no further concerns/needs. CM to follow. Advised pt to ask CM if any further question/concerns/needs arise, voices understanding. Pt Goal: Home Plan: Home, follow for safe DC. Paula BAH CM
[2024-12-28] MEDS: Clopidogrel Bisulfate 75 MG Tablet PO (14:08)
[2024-12-28] MEDS: Magnesium Chloride 64 MG Delay Rel.Tablet 128 MG PO (14:08)
[2024-12-28] MEDS: Senna/Docusate Sodium 1 Tablet 2 TABLET PO (14:08)
[2024-12-28 14:12] VITALS: BP 159/68; PULSE 66; RESP 16; TEMP 36.9; O2SAT 93
--- NOTE | 2024-12-28 15:59 | NURSING ---
All documentation by practical nursing teacher Liliana Schreiber reviewed by nursing technician Madie SEXTONN, RN.
== END 2024-12-28 16:22 | disposition home or self-care (01) | DRG 742 ==
LOC: SDC 17:41 → MS3 17:41
PROVIDERS: Student in an Organized Health Care Education/Training Program; Admitting Provider Obstetrics & Gynecology; PCP Student in an Organized Health Care Education/Training Program; Referring Provider Obstetrics & Gynecology; Visit Provider Obstetrics & Gynecology
PROC: 0UT90ZZ Resection of Uterus, Open Approach (ICD-10-PCS; CPT 58260; principal; 2024-12-27 08:10)
DX: N85.01 Benign endometrial hyperplasia (principal); K51.90 Ulcerative colitis, unspecified, without complications; E03.9 Hypothyroidism, unspecified; E11.42 Type 2 diabetes mellitus with diabetic polyneuropathy; I10 Essential (primary) hypertension; K76.0 Fatty (change of) liver, not elsewhere classified; I65.22 Occlusion and stenosis of left carotid artery; Z79.4 Long term (current) use of insulin; E78.00 Pure hypercholesterolemia, unspecified; K21.9 Gastro-esophageal reflux disease without esophagitis; E11.65 Type 2 diabetes mellitus with hyperglycemia; I44.0 Atrioventricular block, first degree; F12.90 Cannabis use, unspecified, uncomplicated; K58.9 Irritable bowel syndrome, unspecified; Z79.84 Long term (current) use of oral hypoglycemic drugs; Z82.49 Family history of ischemic heart disease and other diseases of the circulatory system; Z86.73 Personal history of transient ischemic attack (TIA), and cerebral infarction without residual deficits; Z87.891 Personal history of nicotine dependence; Z88.8 Allergy status to other drugs, medicaments and biological substances; Z88.2 Allergy status to sulfonamides; Z79.02 Long term (current) use of antithrombotics/antiplatelets; Z79.899 Other long term (current) drug therapy; R10.2 Pelvic and perineal pain; Z87.820 Personal history of traumatic brain injury; K90.0 Celiac disease
CPT/HCPCS: 36415; 80048; 80053; 82962; 83036; 83735; 84439; 84443; 85027; 86850; 86900; 86901; 88307; 93005; 94668; 99406; J2405

== ENCOUNTER → 2025-02-16 | Outpatient (CLI) | payer MEDICARE, MEDICAID, SELFPAY ==
--- NOTE | 2025-02-16 16:15 | CT_ITS ---
PROCEDURE: CTA ABDOMEN W/WO CONTRAST 02/16/2025 REASON FOR EXAM: EVAL RENAL ARTERY STENOSIS TECHNIQUE: CTA imaging of the abdomen and pelvis with intravenous contrast. Multiplanar and multisequence images were obtained. CONTRAST: Isovue 370 VOLUME: 100 mL Gauge IV One or more dose reduction techniques were used (e.g., Automated exposure control, adjustment of the mA and/or kV according to patient size, use of iterative reconstruction technique). RADIATION DOSE SUMMARY: CTDlvol: 20.2 mGy DLP: 729 mGycm COMPARISON: None. FINDINGS: Aorta: Mild stenosis. Iliac Arteries: Mild stenosis. Celiac: 30% stenosis. SMA: Mild stenosis. SHAWN : Mild stenosis. Right Renal: 20% stenosis. Left Renal: 20% stenosis. Subsegmental atelectatic changes in the lingula. Surgical changes of the anterior abdominal wall. Diffuse spondylosis. Prior decompression and fusion at L1-L2, unremarkable transpedicular screws. Prior cholecystectomy. Normal liver. Normal extrahepatic biliary system. Normal spleen. Normal pancreas. Normal bilateral adrenal glands. Normal size of the right kidney. There is no right renal mass. There are no right renal calculi. There is no right hydronephrosis. Normal visualized right ureter. Normal size of the left kidney. There is no left renal mass. There are no left renal calculi. There is no left hydronephrosis. Normal visualized left ureter. Normal visualized stomach. Normal small intestine. Normal colon. The appendix is visualized and appears normal. There is no demonstrated peritoneal fluid. Normal inferior vena cava. Normal retroperitoneum. CT/CTA Abdomen W/WO Contrast IMPRESSION: No evidence of hemodynamically significant stenosis of the renal arteries. Reading Location: [place] [id number]
== END | disposition home or self-care (01) ==
LOC: CT 16:09
PROVIDERS: PCP Student in an Organized Health Care Education/Training Program; Referring Provider Internal Medicine Cardiovascular Disease; Visit Provider Internal Medicine Cardiovascular Disease
DX: I70.1 Atherosclerosis of renal artery (principal)
CPT/HCPCS: 74175; Q9967

== ENCOUNTER 2025-04-15 13:11 | Emergency (ER) | payer MEDICARE, MEDICAID, SELFPAY ==
[2025-04-15] VITALS (7 sets, daily range): BP systolic 103–217; BP diastolic 50–126; PULSE 76–101; RESP 12–18; TEMP 37; O2SAT 97–99; BMI 35.2
--- NOTE | 2025-04-15 13:24 | EX.ED.DYSGE1 ---
HPI History of Present Illness Chief Complaint: Hyperglycemia Informant: patient Onset/Context/Timing Onset: Today and Yesterday Context: Gradual Onset Timing: Continuous Current Severity: Mild Maximum Severity: Mild Narrative Narrative: 69-year-old female history of prior stroke and insulin-dependent diabetes. States her blood sugars been elevated yesterday as high as 337. Elevated today also. She started with nausea and vomiting yesterday. No diarrhea. No fever. Denies any dysuria urgency or frequency. No hematuria. No fever. No recent hospitalization. Prior similar symptoms: Yes Recent Illness/Hospitalization: No PFSH PFS Medical History Cardiology follow-up encounter History of stress test First degree AV block Simple endometrial hyperplasia without atypia Wears glasses Post-menopausal Marijuana use Insulin dependent diabetes mellitus Thyroid disease Fatty liver High cholesterol Ulcerative colitis GERD (gastroesophageal reflux disease) Leg cramps History of echocardiogram Hypertension PONV (postoperative nausea and vomiting) Encounter for screening examination for sexually transmitted disease HPV test positive Pelvic pain Thickened endometrium Anxiety Stroke/cerebrovascular accident (11/02/22) Former tobacco use Near syncope Elevated troponin Abnormal EKG Hyponatremia Prolonged QT interval Polyneuropathy Occlusion of left internal carotid artery Ischemic stroke 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 Irritable bowel syndrome Celiac disease Ulcerative colitis Muscle spasm Hypothyroidism Hypertension Vitamin D deficiency Diabetes mellitus Lumbar spinal stenosis Lumbar disc herniation with radiculopathy Ambulatory dysfunction Intractable back pain Home Medications ?Medication ?Instructions ?Recorded ?Last Taken ?Type ergocalciferol (vitamin D2) 1,250 50,000 unit PO MOFR SUPPLEMENT 12/18/20 12/26/24 08:00 History mcg (50,000 unit) capsule thyroid (pork) 120 mg tablet 120 tablet PO DAILY THYROID 12/18/20 12/27/24 06:00 History clopidogrel 75 mg tablet 75 mg PO DAILY BLOOD THINNER #30 11/04/22 12/22/24 Rx tabs carvedilol 6.25 mg tablet 6.25 mg PO BID 03/05/24 12/27/24 06:00 History pantoprazole 40 mg tablet,delayed 40 mg PO DAILY #30 tabs 05/22/24 12/27/24 06:00 Rx release thyroid (pork) 30 mg tablet 30 mg PO MOWEFR 07/21/24 12/26/24 08:00 History ([facility]ster Thyroid) insulin glargine 100 unit/mL (3 20 unit subcut DAILY 12/12/24 12/26/24 10:00 History mL) subcutaneous pen (Lantus Solostar U-100 Insulin) spironolactone 25 mg tablet 25 mg PO BID 12/12/24 12/26/24 20:00 History elderberry fruit 200 mg capsule 1,000 mg PO DAILY 12/13/24 12/26/24 08:00 History atorvastatin 40 mg tablet 40 mg PO QDAY #90 tabs 01/26/25 Unknown Rx dulaglutide 0.75 mg/0.5 mL 0.75 mg subcut QWEEK 01/26/25 Unknown History subcutaneous pen injector (Trulicity) glimepiride 2 mg tablet 2 mg PO BID 01/26/25 Unknown History dulaglutide 1.5 mg/0.5 mL 1.5 mg subcut QWEEK 04/15/25 Unknown History subcutaneous pen injector (Trulicity) Allergy/AdvReac Type Severity Reaction Status Date / Time metformin Allergy Severe Hives Verified 04/15/25 13:12 prednisone Allergy Intermediate Itching Verified 04/15/25 13:12 aspirin Allergy mouth Verified 04/15/25 13:12 swelling gluten Allergy Abd Verified 04/15/25 13:12 cramps/diarrhea ibuprofen Allergy mouth Verified 04/15/25 13:12 swelling Sulfa (Sulfonamide Allergy pt can't Verified 04/15/25 13:12 Antibiotics) remember Family History Mother Heart disease Alzheimers disease Father Heart disease Hypertension CAD (coronary artery disease) Myocardial infarction Thyroid disorder Diabetes Sister Cancer Surgical History History of total vaginal hysterectomy (TVH) History of esophagogastroduodenoscopy (EGD) Hx of colonoscopy History of hysteroscopy History of back surgery (~2019) Hx of umbilical hernia repair S/P tubal ligation S/P cholecystectomy S/P tonsillectomy and adenoidectomy History of lumbar fusion History of lumbar discectomy Social History adopted: No household members: none number of children: 3 sexually active: Yes Smoking Status: Former smoker alcohol intake: never substance use type: marijuana and other details: Medical cannabis, usually daily. seatbelt use: always do you feel safe at home: Yes ROS ROS ED ROS Narrative Elevated blood sugar. Nausea vomiting. No fever. No dysuria. Constitutional Constitutional ED: Denies chills or fever(s) Eyes Eyes: Denies blurry vision ENT ENT ED: Denies ear pain Cardiovascular Cardiovascular: Denies chest pain Respiratory/Chest Respiratory/Chest: Denies cough or dyspnea Gastrointestinal Gastrointestinal: Reports nausea and vomiting; Denies abdominal pain, constipation, diarrhea or melena Genitourinary Genitourinary ED: Denies dysuria or hematuria Musculoskeletal Musculoskeletal: Denies arthralgias Integumentary Denies abscess or Abrasions Neurologic Neurologic: Denies headache(s) Psychiatric Psychiatric: Denies anxiety or depression Endocrine Endocrinology: Denies cold intolerance Hematologic/Lymphatic Hematologic/Lymphatic: Reports none Allergic/Immunologic Allergic/Immunologic ED: Denies mouth swelling, tongue swelling or urticaria EXAM Physical Exam Narrative Exam Narrative: 69-year-old female sitting upright in bed. Vital signs are stable afebrile. Does not look septic or toxic. No acute distress. Family member at bedside. H EENT exam pupils round react light. Moist mucous membranes. Neck nontender no JVD. No lymphadenopathy. Lungs clear to auscultation bilaterally. Heart regular rhythm no murmur rate about 75. Chest wall ribs nontender. Abdomen soft nontender. No peritoneal signs. Moving all 4 extremities. Nontender no edema. Normal strength. Normal range of motion. No rashes. No redness or warmth. Back nontender. Well-healed prior lumbar surgical incision. Neurologically she is awake alert. Answering questions following commands. Const Vital Signs: 04/15/25 13:11 04/15/25 13:41 04/15/25 14:18 Temperature 98.6 F Temperature Source Oral Pulse Rate 76 88 Respiratory Rate 18 16 Respiratory Effort Labored Respiratory Pattern Normal Blood Pressure 134/94 H 166/117 H Blood Pressure Mean 107 133 Pulse Ox 99 99 Oxygen Delivery Method Room Air Room Air 04/15/25 15:50 04/15/25 16:33 Temperature Temperature Source Pulse Rate 91 95 Respiratory Rate 15 16 Respiratory Effort Respiratory Pattern Blood Pressure 217/111 H 173/50 H Blood Pressure Mean 146 91 Pulse Ox 99 98 Oxygen Delivery Method Room Air Room Air Positive well nourished and well developed; Negative for cachectic, contractures or unkempt General Appearance ED: well developed and NAD; Negative for unkempt, cachectic, contractures, cyanotic, diaphoretic or pallor Nutritional Appearance: Negative for cachectic HEENT Reports moist mucous membranes Negative for trauma or tenderness Eyes PERRL and EOMs intact bilaterally General Eye ED: Negative for pale conjunctiva or scleral icterus Neck no lymphadenopathy, supple and no JVD Chest Wall inspection of chest normal and palpation of chest normal Resp normal respiratory effort and clear to auscultation bilaterally Effort and Inspection: Negative for retractions Auscultation: Negative for rales, rhonchi, wheezes or diminished lung sounds Cardio regular rate, regular rhythm, S1 normal heart sound, S2 normal heart sound and no murmurs GI normal to inspection, nondistended, normoactive bowel sounds, non-tender, non-distended and no masses Auscultation: normoactive bowel sounds Palpation: soft; Negative for tender, guarding or rebound tenderness present Back/Spine no CVA tenderness General Back: Negative for CVA tenderness Cervical Spine: Negative for cervical spine tenderness Thoracic Spine / Upper Back: Negative for thoracic spinal tenderness or paraspinal muscle tenderness Lumbar Spine / Lower Back: Negative for lumbar spinal tenderness Extremity normal to inspection General Extremety ED: Negative for edema or tenderness General Extremity: Negative for edema Neuro CN's II-XII intact bilaterally Sensorium / Orientation: alert; Negative for orientation impaired, lethargic or stuporous Motor Exam: strength 5/5 throughout Psych mental status grossly normal Appearance: Negative for unkempt Mood & Affect: anxious Skin no rashes or lesions noted and no wounds General Skin Exam: Negative for jaundice or pallor Lesions: No lesion noted Rashes: No rashes noted Trauma: Negative for abrasion Wounds: Negative for wounds noted MDM MDM MDM Narrative Medical decision making narrative: 69-year-old diabetic female with elevated blood sugar 337. Nausea and vomiting. No diarrhea. No fever no dysuria. She will be given IV fluids. Screening labs will be obtained. Rule DKA. Treated with Zofran for nausea. Repeat exams last 1 done at 4:51 PM. Patient is resting comfortably. She is receiving a liter normal saline. After the saline bolus a repeat BMP will be checked. If that is improved she may be able be discharged home. If not in the electrolytes and labs are still significant abnormal she will be admitted. She is being checked out to the afternoon physician. I have already discussed with the hospitalist. History & Record Review Discussion w/independent historian: Patient Additional record(s) reviewed:: Prior inpatient record, Prior outpatient record, Prior ED visit and Prior labs Lab Data Attestation: I reviewed the patient's lab results. Lab results narrative: CBC shows a white count of 21.0. H&H is 16 and 45. Platelets 451. Electrolytes show sodium 127. Potassium 5.2. Gap 18. BUN/creatinine of 30 and 1. Glucose 364. Beta hydroxybutyric acid is elevated 0.4 UA shows 1000 glucose. 50 ketones. Negative nitrates. 0 red cells. 0 white cells. 1+ bacteria Arterial blood gas due to concern for possible DKA showed a pH of 7.58PCO2 of 21 and PO2 of 89. 98% on room air. Labs: Laboratory Results - last 24 hr 04/15/25 04/15/25 04/15/25 13:32 14:20 16:32 WBC 21.0 H RBC 5.48 H Hgb 16.3 H Hct 45.4 MCV 82.8 MCH 29.7 MCHC 35.9 RDW Std Deviation 38.5 RDW Coeff of Neida 12.8 Plt Count 451 H MPV 9.4 Immature Gran % (Auto) 0.700 Neut % (Auto) 81.4 H Lymph % (Auto) 10.8 L Kimble % (Auto) 6.5 Eos % (Auto) 0.2 Baso % (Auto) 0.4 Absolute Neuts (auto) 17.1 H Absolute Lymphs (auto) 2.26 Nucleated RBC % 0 Sodium 127 L Potassium 5.2 H Chloride 89 L Carbon Dioxide 20.4 L Anion Gap 18 H BUN 30 H Creatinine 1.06 Estim Creat Clear Calc 47.41 L Est GFR (MDRD) Non-Af 57 L BUN/Creatinine Ratio 27.9 H Glucose 364 H Calcium 10.5 b-Hydroxybutyric mmol/L 0.4 H Urine Color Yellow Urine Clarity Sl. Cloudy Urine pH 6.0 Ur Specific Mccune 1.015 Urine Protein 30 H Urine Glucose (UA) 1000 H Urine Ketones 50 H Urine Occult Blood 25 H Urine Nitrite Negative Urine Bilirubin Negative Urine Urobilinogen Normal Ur Leukocyte Esterase Negative Urine RBC 0 SEEN Urine WBC 0-5 SEEN Ur Squamous Epith Cells 5-10 SEEN Urine Bacteria 1+ Hyaline Casts 5-10 SEEN Urine Mucus 0 SEEN POC Glucose 269 H ABG Data ABG results: ABG 04/15/25 15:06 Specimen Type ART Sample Site L Radial pH 7.59 H Bicarbonate Actual 20.8 L Total CO2 22 Base Excess -1 O2 Saturation 98 ABG pCO2 21.8 L ABG pO2 89 Nico Test Positive O2 Delivery Device Room Air Vent Mode Not entered Discharge Plan Triage Chief Complaint: Hyperglycemia ED Provider: Berry Waldrop Dx/Rx/DC Orders Clinical Impression: Diabetes mellitus with hyperglycemia, Nausea & vomiting Prescriptions: No Action glimepiride 2 mg tablet 2 mg PO BID Trulicity 0.75 mg/0.5 mL pen injector 0.75 mg subcut QWEEK atorvastatin 40 mg tablet 40 mg PO QDAY Qty: 90 3RF thyroid (pork) 120 MG tablet 120 tablet PO DAILY ergocalciferol (vitamin D2) 50,000 UNIT capsule 50,000 unit PO MOFR clopidogrel 75 mg Tablet 75 mg PO DAILY Qty: 30 2RF carvedilol 6.25 mg tablet 6.25 mg PO BID spironolactone 25 mg tablet 25 mg PO BID pantoprazole 40 mg tablet,delayed release (DR/EC) 40 mg PO DAILY Qty: 30 0RF insulin glargine [Lantus Solostar U-100 Insulin] 100 unit/mL (3 mL) insulin pen 20 unit subcut DAILY thyroid (pork) [[facility] Thyroid] 30 mg tablet 30 mg PO MOWEFR elderberry fruit 200 mg capsule 1,000 mg PO DAILY Trulicity 1.5 mg/0.5 mL pen injector 1.5 mg subcut QWEEK Primary Care Provider: Preet Farrar Referrals: Preet Farrar DO [Primary Care Provider] - Print Language: Bengali
[2025-04-15] MEDS: 0.9% Normal Saline (500mL Bag) 500 ML 999 ML IV (13:37)
[2025-04-15 13:44] LABS: Hematocrit 45.4 % (37-47); Hemoglobin 16.3 g/dL (12.0-15.0); Immature Granulocytes Count 0.140 X10^3/uL (0.0-0.0); Mean Corp Hgb Conc 35.9 g/dL (32-36); Mean Corpuscular Volume 82.8 fL (81-99); Mean Platelet Vol. 9.4 fl (6.2-12.0); NRBC Flagged by Analyzer 0 % (0-5); Platelet Count 451 K/mm3 (150-450); RBC Distribution Width CV 12.8 % (11.6-14.6); RBC Distribution Width SD 38.5 fl (35.1-43.9); Red Blood Count 5.48 M/mm3 (4.2-5.4); White Blood Count 21.0 K/mm3 (4.4-11.0)
[2025-04-15 13:56] LABS: Anion Gap 18 (5-15); BETA-HYDROXYBUTYRATE 0.4 mmol/L (0.0-0.3); BUN 30 mg/dL (4-19); BUN/Creat Ratio 27.9 RATIO (10-20); Calcium,Total 10.5 mg/dL (7.6-11.0); Carbon Dioxide 20.4 mmol/L (21.0-32.0); Chloride 89 mmol/L (98-108); Estimated Creatinine Clearance 47.41 ml/min (50-250); Glucose 364 mg/dL (70-99); Potassium 5.2 mmol/L (3.3-5.1)
--- OUTSIDE RECORDS SUMMARY | 2025-04-15 14:00 | XMS RPT_ITS | CCD ---
Author Organization [facility] Care Team Providers Care Electronic Sensing Equipment Assembler Name Role Phone Unavailable Primary Care Provider Unavailabl e Preet Farrar DO Primary Care Provider Preet Farrar DO Primary Care Provider Preet Farrar DO Primary Care Provider Dr. Preet Farrar Primary Care Provider Dr. Mick Chanel Emergency Provider Dr. Hermes Mirza Admit Provider Dr. Hermes Mirza Attending Provider Dr. Hermes Mirza Other Provider Dr. Jamel Gray Attending Provider Dr. Carmen Dallas Attending Provider Dr. Carmen Dallas Other Provider Dr. Hermes Block Other Provider Dr. Preet Farrar Primary Care Provider Dr. Preet Farrar Referring Provider Dr. Kenton Stapleton Attending Provider Dr. Julien Reyna Attending Provider Dr. Kenton Stapleton Referring Provider Dr. Preet Farrar Primary Care Provider Dr. Jamel Gray Attending Provider 1([phone] Иван Valencia Emergency Provider Dr. Halley Hodges Admit Provider Dr. Halley Hodges Other Provider Dr. Abisai Fuentes Attending Provider Dr. Abisai Fuentes Other Provider Dr. Preet Farrar Referring Provider Dr. Kenton Stapleton Attending Provider PREET FARRAR DO Primary Care Physician PREET FARRAR DO Primary Care Unavailable ELOISA LEVIN MD Attending Unavailable Preet Farrar DO Primary Care Provider Kodak BUFFER OPERATOR.ENGINEERING TEST SPECIALIST, Jacqueline Dowell Unavailable Martir BUFFER OPERATOR.ENGINEERING TEST SPECIALIST, Kathryn Unavailable Dr. Preet Farrar DO Primary Care Provider [phone] Axel TURNER, Dr. Victoria Attending Provider Axel TURNER, Dr. Victoria Referring Provider Dr. Hermes Block MD Attending Provider Dr. Preet Farrar DO Referring Provider Rafael TURNER, Dr. Reveles Attending Provider Axel TURNER, Dr. Victoria Other Provider Isaac TURNER, Dr. Mccullough Attending Provider Dr. Anushka Hall MD Referring Provider [phone] Dr. Anushka Hall MD Other Provider Rafael TURNER, Dr. Reveles Admit Provider Dr. Reji Cline DO Other Provider Asaf TURNER, Dr. Douglas Soto Other Provider River TURNER, Dr. Harris Other Provider Burt TURNER, Dr. Carmen Edwards Attending Provider Dr. Preet Farrar DO Primary Care Provider Dr. Preet Farrar DO Referring Provider Rafael TURNER, Dr. Reveles Attending Provider [phone] River TURNER, Dr. Harris Attending Provider Axel TURNER, Dr. Victoria Attending Provider Axel TURNER, Dr. Victoria Referring Provider Farrar, Preet Primary Care Unavailable Axel, Julien Attending Unavailable Axel, Julien Referring Unavailable Axel, Julien Consulting Unavailable Farrar, Preet Primary Care Unavailable Isaac Jamel Attending Unavailable Marquiseony, Anushka Referring Unavailable Farrar, Preet Primary Care Unavailable Angelina Muñoz NP Attending Unavailable Farrar, Preet Referring Unavailable Farrar, Preet Primary Care Unavailable Anushka Hall Attending Unavailable Farrar, Preet Referring Unavailable Farrar, Preet Primary Care Unavailable Hermes Mirza Attending Unavailable Duron, Achintya Consulting Unavailable Duron, Achintya Admitting Unavailable Hermes Mirza Consulting Unavailable Farrar, Preet Primary Care Unavailable Anushka Hall Referring Unavailable Anushka Hall Attending Unavailable Farrar, Preet Primary Care Unavailable Anushka Hall Attending Unavailable Anushka Hall Referring Unavailable Rafael Anushka Admitting Unavailable Reji Cline Consulting Unavailable Douglas Ron Consulting Unavailable Steven Holman Consulting Unavailable Farrar, Preet Primary Care Unavailable Hermes Mirza Attending Unavailable Duron, Achintya Consulting Unavailable Duron, Achintya Admitting Unavailable Farrar, Preet Referring Unavailable Farrar, Preet Primary Care Unavailable Anushka Hall Attending Unavailable Farrar, Preet Referring Unavailable Farrar, Preet Primary Care Unavailable MarquiseonyAnushka Attending Unavailable Farrar, Preet Primary Care Unavailable Jamel Gray Attending Unavailable Marquiseony Anushka Referring Unavailable Farrar, Preet Primary Care Unavailable Hermes Block Attending Unavailable Axel, Julien Referring Unavailable Farrar, Preet Referring Unavailable Farrar, Preet Primary Care Unavailable Axel, Julien Attending Unavailable Farrar, Preet Referring Unavailable Farrar, Preet Primary Care Unavailable Nicole Montez Attending Unavailable Angelina Muñoz NP Attending Unavailable Farrar, Preet Primary Care Unavailable Farrar, Preet Referring Unavailable Farrar, Preet Primary Care Unavailable Farrar, Preet Referring Unavailable MarquiseonyAnushka Attending Unavailable Farrar, Preet Referring Unavailable Farrar, Preet Primary Care Unavailable MarcanthonyElvison Attending Unavailable Farrar, Preet Primary Care Unavailable Axel, Julien Attending Unavailable Farrar, Preet Referring Unavailable Farrar, Preet Primary Care Unavailable Farrar, Preet Referring Unavailable MarciwlliamonyAnushka Attending Unavailable Adrian Duron Attending Unavailable Farrar, Preet Primary Care Unavailable Иван Valencia Attending Unavailable Farrar, Preet Primary Care Unavailable Axel, Julien Referring Unavailable Axel, Julien Attending Unavailable Farrar, Preet Primary Care Unavailable Axel, Julien Attending Unavailable Axel, Julien Referring Unavailable Farrar, Preet Primary Care Unavailable Payton Yuan Attending Unavailable Payton Yuan Referring Unavailable Farrar, Preet Primary Care Unavailable Marcanthony, Anushka Referring Unavailable MarcanthonyAnushka Attending Unavailable Marcanthony, Anushka Consulting Unavailable Farrar, Preet Primary Care Unavailable Marcanthony Anushka Referring Unavailable MarcanthonyAnushka Attending Unavailable Marcanthony, Anushka Consulting Unavailable Farrar, Preet Primary Care Unavailable Carmen Dallas Attending Unavailable Froylananthony Anushka Admitting Unavailable Reji Cline Consulting Unavailable Marcanthony, Anushka Referring Unavailable Douglas Ron Consulting Unavailable Marcanthony, Anushka Consulting Unavailable FroylananthonyAnushka Attending Unavailable River, Steven Consulting Unavailable River, Steven Attending Unavailable Payton Yuan Attending Unavailable Farrar, Preet Primary Care Unavailable Farrar, Preet Referring Unavailable Farrar, Preet Primary Care Unavailable Payton Yuan Attending Unavailable Payton Yuan Referring Unavailable Farrar, Preet Primary Care Unavailable Nicole Montez Attending Unavailable GabrielnasNicole chung Referring Unavailable Farrar, Preet Primary Care Unavailable Toni 911 EMERGENCY SERVICES DISPATCHER, Angelina Attending Unavailable Toni 911 EMERGENCY SERVICES DISPATCHER, Angelina Referring Unavailable Farrar, Preet Primary Care Unavailable Nicole Montez Attending Unavailable Nicole Montez Referring Unavailable Farrar, Preet Primary Care Unavailable Axel, Julien Referring Unavailable Axel, Julien Attending Unavailable Liliana Bennett APRN.CNP Unavailable [phone] LILIANA BENNETT Attending Unavailable FARRAR, PREET L Primary Care Unavailable FARRAR, PREET L Referring Unavailable FARRAR, PREET L Primary Care Unavailable CATALINA YOUNG Attending Unavailable FARRAR, PREET L Primary Care Unavailable FARRAR, PREET L Primary Care Unavailable FARRAR, PREET L Attending Unavailable FARRAR, PREET L Primary Care Unavailable FARRAR, PREET L Referring Unavailable FARRAR, PREET L Primary Care Unavailable BENDARAM, BEAN GARCIA Attending Unavaila ble FARRAR, PREET L Referring Unavailable FARRAR, PREET L Primary Care Unavailable MAKEY, DAYANAND Referring Unavailable FARRAR, PREET L Primary Care Unavailable BENDARAM, BEAN GARCIA Referring Unavaila ble FARRAR, PREET L Primary Care Unavailable BENDARAM, BEAN GARCIA Attending Unavaila ble FARRAR, PREET L Referring Unavailable FARRAR, PREET L Primary Care Unavailable BENDARAM, BEAN GARCIA Referring Unavaila ble FARRAR, PREET L Primary Care Unavailable FARRAR, PREET L Attending Unavailable FARRAR, PREET L Primary Care Unavailable FARRAR, PREET L Primary Care Unavailable BENDARAM, BEAN GARCIA Attending Unavaila ble FARRAR, PREET L Primary Care Unavailable BENDARAM, BEAN GARCIA Referring Unavaila ble FARRAR, PREET L Primary Care Unavailable FARRAR, PREET L Attending Unavailable FARRAR, PREET L Primary Care Unavailable BENDARAM, BEAN GARCIA Attending Unavaila ble FARRAR, PREET L Primary Care Unavailable FARRAR, PREET L Attending Unavailable FARRAR, PREET L Primary Care Unavailable FARRAR, PREET L Referring Unavailable FARRAR, PREET L Primary Care Unavailable Allergies Allergy Classification Reported [...] [metformin] Drug Allergy 0 GI Upset, Itching [facility] (20 sources) predniSONE; Translations: [prednisone] Drug Allergy 3 Itching [facility] Comment on above: itching and hives (12 sources) Salicylic Acid; Translations: [salicylates] Drug Allergy 6 [facility] Work Phone: (20 sources) Sulfonamides (Antibiotic); Translations: [SULFA (SULFONAMIDE ANTIBIOTICS)] Propensity to adverse reactions 6 Rash [facility] Work Phone: (20 sources) Salicylate product Propensity to adverse reactions 6 Hives, GI Upset [facility] Work Phone: (9 sources) Aspirin Drug Allergy 1 mouth swelling [facility] (9 sources) Ibuprofen Drug Allergy 1 mouth swelling [facility] (8 sources) Sulfonamides (Antibiotic) Allergy to substance 3 pt can't remember [facility] (1 source) Gluten Food allergy [facility] (1 source) Sulfonamide; Translations: [sulfa drugs] Drug allergy [facility] (1 source) Aspirin Drug Allergy 5 [facility] (2 sources) Gluten; Translations: [GLUTEN] Drug allergy (disorder) 7 [facility] (1 source) Ibuprofen Drug Allergy 5 [facility] (1 source) metFORMIN Drug Allergy 5 [facility] (1 source) predniSONE Drug Allergy 5 [facility] (1 source) Sulfonamides (Antibiotic) Drug allergy (disorder) 5 [facility] Medications Current Medications Medication Drug Class(es) Dates Sig (Normalized) Sig (Original) acetaminophen 500 mg oral tablet (11 sources) Start: 01-11-2021 take 1000 mg by mouth every eight hours Acetaminophen Active 1000 MG PO EVERY 8 HOURS January 11, 2021 12:00am Start: 12-21-2020 acetaminophen (TYLENOL) tablet 650 mg Start: 12-18-2020 End: 01-11-2021 take 1-10 tablets by mouth every four hours as needed for pain Acetaminophen 500 MG tablet Discontinued 1000 mg PO EVERY 4 HOURS NEEDED as needed for Pain 1-10 Or Fever December 18, 2020 12:00am January 11, 2021 4:33pm Start: 12-18-2020 End: 01-11-2021 take 1000 mg by mouth every four hours as needed Acetaminophen Discontinued 1000 MG PO EVERY 4 HOURS NEEDED December 18, 2020 12:00am January 11, 2021 4:33pm amoxicillin 875 mg / clavulanate 125 mg oral tablet (1 source) Penicillin-class Antibacterial Start: 01-11-2021 take 875 mg by mouth twice daily at mealtime Amoxicillin-Pot Clavulanate Active 875 MG PO TWICE DAILY WITH MEALS January 11, 2021 12:00am atorvastatin 40 mg oral tablet (20 sources) HMG-CoA Reductase Inhibitor Start: 03-16-2025 take 1 tablet by mouth once daily atorvastatin (LIPITOR) 40 mg tablet Indications: Ischemic stroke without residual deficits (HCC) Take 1 tablet by mouth once daily. 90 tablet 03/16/2025 Active Start: 01-26-2025 take 1 tablet by vaibhav th once daily Atorvastatin 40 mg tablet Active 40 mg PO daily January 26, 2025 12:00am Start: 11-04-2022 End: 03-16-2025 take 1 tablet by mouth once daily atorvastatin (LIPITOR) 80 mg tablet Indications: Ischemic stroke without residual deficits (HCC) Take 1 tablet by mouth once daily. 90 tablet 1 11/29/2024 03/16/2025 Discontinued End: 11-05-2022 atorvastatin (LIPITOR) 10 mg tablet Take 80 mg by mouth once daily. 0 11/05/2022 Discontinued (Adjust Sig - Block E-Cancel) Comment on above: Take 1 tablet by vaibhav th once daily. Take 80 mg by mouth once daily. bisacodyl 5 mg delayed release oral tablet (3 sources) Stimulant Laxative Start: 01-11-2021 take 10 mg by mouth once daily Bisacodyl Active 10 MG PO DAILY January 11, 2021 12:00am Start: 12-26-2020 End: 12-26-2020 bisacodyl (DULCOLAX) supposi tory 10 mg Start: 12-25-2020 bisacodyl (DUL COLAX) EC tablet 10 mg Blood Pressure Monitor (BLOO D PRESSURE KIT) (20 sources) Start: 01-24-2022 Blood Pressure Monitor (BLOOD PRESSURE KIT) Indications: Essential hypertension, benign 1 Each as directed. Dx: essential hypertension 1 Kit 01/24/2022 Active Start: 01-24-2022 Blood Pressure Monitor (BLOOD PRESSURE KIT) Indications: Essential hypertension, benign 1 Each as directed. Dx: essential hypertension 1 Kit 0 01/24/2022 Active Comment on above: 1 Each as directed. Dx: essential hypertension Blood-Glucose Meter monitoring kit (1 source) Start: 5 End: 5 Blood-Glucose Meter monitoring kit Glucose Meter of Choice - Kit - Dx: Type 2 DM - Controlled E11.9 Check Sugars 4 times Daily Patient states that Acc-check is covered 1 each 04/03/2025 04/04/2025 Active carvedilol 6.25 mg oral tablet (20 sources) alpha-Adrenergic Kari, beta-Adrenergic Kari Start: 3 End: 5 take 1 tablet by mouth twice daily at mealtime carvedilol (COREG) 6.25 mg tablet Take 1 tablet by mouth two times a day with meals. 180 tablet 3 11/29/2024 Active End: 07-15-2023 carvedilol (COREG) 25 mg [...] two times a day with meals. cholecalciferol 96329 unt oral capsule (1 source) Vitamin D Cholecalciferol (VITAMIN D3) 1.25 MG (73098 UT) CAPS Take 50,000 capsules by mouth Twice a Week Thursday and Thursday 0 Active clopidogrel 75 mg oral tablet (20 sources) P2Y12 Platelet Inhibitor Start: 023 End: take 1 tablet by mouth once daily clopidogrel (PLAVIX) 75 mg tablet Indications: Ischemic stroke without residual deficits (HCC) Take 1 tablet by mouth once daily. 90 tablet 1 12/01/2024 Active Comment on above: Take 75 mg by mouth once daily. Take 1 tablet by vaibhav th once daily. cyclobenzaprine hydrochloride 10 mg oral tablet (7 sources) Muscle Relaxant Start: End: take 10 mg by mouth three times daily as needed Cyclobenzaprine Active 10 MG PO 3 TIMES DAILY NEEDED December 28, 2020 12:00am Comment on above: Take 1 tablet by vaibhav th three times daily as needed for Muscle Spasm or Pain. docusate sodium 100 mg oral capsule (1 source) Start: docusate sodium (COLACE) capsule 100 mg docusate sodium 50 mg / sennosides, custodial 8.6 mg oral tablet (1 source) Start: take 2 tablets by mouth three times daily Sennosides-Docusate Sodium Active 2 TABLET PO THREE TIMES A DAY January 11, 2021 12:00am 0.5 ml dulaglutide 3 mg/ml auto-injector (15 sources) GLP-1 Receptor Agonist Start: inject 1.5 mg by subcutaneous injection every week dulaglutide (TRULICITY) 1.5 mg/0.5 mL pen injector Indications: Uncontrolled type 2 diabetes mellitus with hyperglycemia (HCC) Inject 1.5 mg subcutaneously one time a week. 6 mL 1 02/17/2025 Active Start: 12-14-2024 Dulaglutide (T rulicity) 0.75 mg/0.5 mL pen injector Active 0.75 mg SC EVERY WEEK January 26, 2025 12:00am elderberry fruit 200 mg oral capsule (20 sources) Start: 12-13-2024 take 1 capsule by mouth once daily Elderberry Fruit 200 mg capsule Active 1000 mg PO DAILY December 13, 2024 12:00am Start: 07-01-2023 End: 05-22-2024 take 1 capsule by mouth once daily Elderberry Fruit 200 mg capsule Discontinued 1000 mg PO DAILY July 01, 2023 12:00am May 22, 2024 9:05pm Start: 07-01-2023 take 1000 mg by mout h once daily Elderberry Fruit Active 1000 MG PO DAILY July 01, 2023 12:00am take 1000 mg by mout h once daily ELDERBERRY FRUIT ORAL Take 1,000 mg by mouth once daily. Active take 1000 mg by mout h once daily ELDERBERRY FRUIT ORAL Take 1,000 mg by mouth once daily. 0 Active take 1 capsule by mo uth once daily elderberry fruit 350 mg cap Take 1 capsule by mouth once daily. 0 Active Comment on above: Take 1 capsule by mo uth once daily. Elderberry preparation (1 source) Start: 05-28-2023 take 350 mg by mouth once daily elderberry 350 mg, Oral, qDay, 0 Refill(s) Start Date: 05/28/23 Status: Ordered 0.4 ml enoxaparin sodium 100 mg/ml prefilled syringe (2 sources) Low Molecular Weight Heparin Start: 01-11-2021 Enoxaparin Active 40 MG SC DAILY@0600 January 11, 2021 12:00am Start: 12-21-2020 inject 40 mg by subc utaneous injection once daily 40 mg, Subcutaneous, DAILY, First dose on Thu12/21/20 at 0900 ergocalciferol 1.25 mg oral capsule (20 sources) Provitamin D2 Compound Start: 01-20-2025 take 1 capsule by mouth two times weekly ergocalciferol 50,000 unit capsule (VITAMIN D2, DRISDOL) Indications: Vitamin D deficiency Take 1 capsule by mouth two times a week. 24 capsule 3 01/20/2025 Active Start: 10-20-2022 ergocalciferol 50,000 intl units (1.25 mg) oral capsule 8 EA, Take 1 capsule by mouth two times a week., 0 Refill(s) Start Date: 10/20/22 Status: Ordered Start: 05-01-2021 End: 02-02-2024 take 1 capsule by mouth two times weekly ergocalciferol 50,000 unit capsule (VITAMIN D2, DRISDOL) Indications: Vitamin D deficiency Take 1 capsule by mouth two times a week. 24 capsule 3 02/02/2024 Active Start: 12-18-2020 Ergocalciferol (Vitamin D2) 50,000 UNIT capsule Active 29940 U PO MOFR December 18, 2020 12:00am Comment on above: Take 1 capsule by mo uth two times a week. gabapentin 400 mg oral capsule (12 sources) Anti-epileptic Agent Start: 01-11-2021 take 400 mg by mouth four times daily at mealtime Gabapentin Active 400 MG PO 4 TIMES DAILY WITH MEALS January 11, 2021 12:00am Start: 12-24-2020 End: 01-11-2021 take 1 capsule by mouth three times daily Gabapentin 300 MG capsule Discontinued 300 mg PO THREE TIMES A DAY December 28, 2020 12:00am January 11, 2021 4:33pm For 7 days glimepiride 2 mg oral tablet (20 sources) Sulfonylurea Start: 01-26-2025 take 1 tablet by mouth twice daily at mealtime glimepiride (AMARYL) 2 mg tablet Indications: Uncontrolled type 2 diabetes mellitus with hyperglycemia (HCC) Take 1 tablet by mouth two times a day with meals. 60 tablet 5 02/17/2025 Active Start: 08-10-2024 End: 01-26-2025 take 3 mg by mouth twice daily Glimepiride 2 mg tablet Discontinued 3 mg PO TWICE A DAY August 10, 2024 10:36am January 26, 2025 2:11pm Start: 03-09-2024 End: 09-17-2024 take 1 tablet by mouth twice daily Glimepiride 2 mg tablet Discontinued 2 mg PO TWICE A DAY 60 March 09, 2024 12:00am August 10, 2024 10:36am Start: 12-24-2022 End: 03-18-2023 take 1 tablet by mouth twice daily at mealtime glimepiride (AMARYL) 1 mg tablet Take 1 tablet by mouth twice daily with meals. 60 tablet 1 12/24/2022 03/18/2023 Discontinued Start: 12-18-2020 End: 03-05-2024 take 1 tablet by mouth at dinner Glimepiride 2 MG tabl et Discontinued 2 mg PO WITH DINNER December 18, 2020 12:00am March 05, 2024 2:15pm Start: 12-18-2020 take 1 tablet by vaibhav once daily at breakfast glimepiride (AMARYL) 2 mg tablet Indications: Uncontrolled type 2 diabetes mellitus with hyperglycemia (HCC) Take 1 tablet by mouth daily with breakfast. 0 11/21/2021 Active Comment on above: Take 1 tablet [...] ml insulin glargine 100 unt/ml pen injector (20 sources) Insulin Analog Start: 03-24-2025 End: 09-20-2025 insulin glargine (LANTUS SOLOSTAR U-100 INSULIN) 100 unit/mL (3 mL) Indications: Uncontrolled type 2 diabetes mellitus with hyperglycemia (HCC) Inject 25 Units subcutaneously daily at bedtime. 9 mL 4 03/24/2025 09/20/2025 Active Start: 12-12-2024 Insulin Glargi ne (Lantus Solostar U-100 Insulin) 100 unit/mL (3 mL) insulin pen Active 20 U SC DAILY December 12, 2024 10:56am Start: 10-07-2024 End: 03-24-2025 insulin glargine (LANTUS PARAM OSTAR U-100 INSULIN) 100 unit/mL (3 mL) Indications: Uncontrolled type 2 diabetes mellitus with hyperglycemia (HCC) Inject 20 Units subcutaneously every morning. 03/22/2025 03/24/2025 Discontinued Start: 08-17-2024 End: 12-12-2024 Insulin Glargine (Lantus Param ostar U-100 Insulin) 100 unit/mL (3 mL) insulin pen Discontinued 16 U SC DAILY August 17, 2024 11:00am December 12, 2024 10:57am Start: 08-12-2024 End: 08-17-2024 Insulin Glargine (Lantus Param ostar U-100 Insulin) 100 unit/mL (3 mL) insulin pen Discontinued 14 U SC DAILY August 12, 2024 5:26pm August 17, 2024 11:01am Start: 08-10-2024 End: 08-12-2024 Insulin Glargine (Lantus Param ostar U-100 Insulin) 100 unit/mL (3 mL) insulin pen Discontinued 18 U SC DAILY August 10, 2024 10:35am August 12, 2024 5:29pm Start: 07-19-2024 End: 08-10-2024 Insulin Glargine (Lantus Param ostar U-100 Insulin) 100 unit/mL (3 mL) insulin pen Discontinued 16 U SC DAILY July 19, 2024 10:44am August 10, 2024 10:36am Start: 06-14-2024 End: 10-07-2024 insulin glargine (LANTUS PARAM OSTAR U-100 INSULIN) 100 unit/mL (3 mL) Indications: Uncontrolled type 2 diabetes mellitus with hyperglycemia (HCC) Inject 16 Units subcutaneously daily at bedtime. 27 mL 3 06/14/2024 10/07/2024 Discontinued Start: 05-23-2024 End: 06-14-2024 insulin glargine (LANTUS PARAM OSTAR U-100 INSULIN) 100 unit/mL (3 mL) Indications: Uncontrolled type 2 diabetes mellitus with hyperglycemia (HCC) Inject 14 Units subcutaneously daily at bedtime. 27 mL 3 05/23/2024 06/14/2024 Discontinued Start: 05-22-2024 End: 07-19-2024 Insulin Glargine (Lantus Param ostar U-100 Insulin) 100 unit/mL (3 mL) insulin pen Discontinued 14 U SC DAILY May 22, 2024 12:00am July 19, 2024 10:46am Start: 03-21-2024 End: 05-23-2024 inject 10 [IU] by subcutaneous injection once daily at bedtime insulin glargine (LANTUS SOLOSTAR U-100 INSULIN) 100 unit/mL (3 mL) Indications: Uncontrolled type 2 diabetes mellitus with hyperglycemia (HCC) Inject 10 Units subcutaneously daily at bedtime. 27 mL 3 03/21/2024 05/23/2024 Discontinued Start: 01-11-2021 Insulin Glargi ne Active 10 UNITS SC AT BEDTIME January 11, 2021 12:00am magnesium hydroxide 80 mg/ml oral suspension (2 sources) Start: 01-11-2021 take 1 mL by mouth once daily Magnesium Hydroxide Active 30 ML PO DAILY January 11, 2021 12:00am Start: 12-23-2020 magnesium hydr oxide (MILK OF MAGNESIA) 400 MG/5ML suspension 30 [...] on above: Take 1 tablet by vaibhav two times a day for 7 days. [...] hour of each other unless specifically ordered. Nut.Tx.Gluc Intol,Lf,Soy-Fiber (1 source) Start: 01-11-2021 take 1 mL by mouth three times daily at mealtime Nut.Tx.Gluc Intol,Lf,Soy-Fiber Active 120 ML PO 3 TIMES DAILY WITH MEALS January 11, 2021 12:00am nystatin 100 unt/mg topical powder (1 source) Polyene Antifungal Start: 01-11-2021 Nystatin Active 1 APPLIC TOPICAL TWICE A DAY January 11, 2021 12:00am ondansetron 4 mg disintegrating oral tablet (20 sources) Serotonin-3 Receptor Antagonist Start: 03-18-2025 take 1 tablet by mouth every eight hours as needed for nausea ondansetron orally disintegrating (ZOFRAN ODT) 4 mg disintegrating tablet Indications: Uncontrolled type 2 diabetes mellitus with hyperglycemia (HCC) Take 1 tablet by mouth every 8 hours as needed for nausea/vomiting. 20 tablet 03/18/2025 Active Start: 03-08-2024 End: 05-22-2024 take 1 tablet by mouth every eight hours as needed for nausea and vomiting Ondansetron Hcl 8 mg tablet Discontinued 8 mg PO Q8H as needed for nausea and vomiting 15 March 08, 2024 12:00am May 22, 2024 9:06pm Start: 03-18-2023 End: 03-16-2025 take 1 tablet by mouth every eight hours as needed for nausea ondansetron orally disintegrating (ZOFRAN ODT) 4 mg disintegrating tablet Indications: Uncontrolled type 2 diabetes mellitus with hyperglycemia (HCC) Take 1 tablet by mouth every 8 hours as needed for nausea/vomiting. 20 tablet 1 03/18/2023 03/16/2025 Discontinued (Course of therapy completed) Comment on above: Take 1 tablet by vaibhav th every 8 hours as needed for nausea/vomiting. pantoprazole 40 mg delayed release oral tablet (20 sources) Proton Pump Inhibitor Start: 02-18-20 take 1 tablet by mouth once daily pantoprazole DR (PROTONIX) 40 mg tablet Take 1 tablet by mouth once daily. 30 tablet 5 02/17/2025 Active Start: 03-08-2024 End: 2024 take 1 tablet by mouth once daily Pantoprazole 40 mg tablet,delayed release (DR/EC) Active 40 mg PO DAILY May 22, 2024 12:00am perflutren lipid microspheres 1.3 mL in NaCl (PF) 0.9% 10 mL injection (DEFINITY) (20 sources) Start: 02-19-2022 End: 05-21-2023 perflutren lipid microspheres 1.3 mL in NaCl (PF) 0.9% 10 mL injection (DEFINITY) polyethylene glycol 3350 60440 mg powder for oral solution (2 sources) Osmotic Laxative Start: 01-11-2021 take 17 g by mouth twice daily Polyethylene Glycol 3350 Active 17 GM PO TWICE A DAY January 11, 2021 12:00am Start: 12-21-2020 17 g, Oral, DA NIKI PRN, Constipation, Starting Thu12/21/20 at 0328 First [...] mg subcut aneously one time a week. 125 ml sodium chloride 9 mg/ml prefilled syringe (20 sources) Start: 02-19-2022 End: 05-21-2023 sodium chloride 0.9 % (flush) 10 mL (BD POSIFLUSH) Start: 12-21-2020 10 mL, Intrave nous, EVERY 12 HOURS SCHEDULED (2 times per day), First dose on Thu12/21/20 at 0900 Start: 12-21-2020 take 10 mL intraveno us route once as needed 10 mL, Intravenous, PRN, Line Care, After every IV line use, Starting Thu12/21/20 at 0328 spironolactone 25 mg oral tablet (20 sources) Aldosterone Antagonist Start: 03-05-2024 End: 12-12-2024 take 1 tablet by mouth twice daily Spironolactone 25 mg tablet Active 25 mg PO TWICE A DAY December 12, 2024 10:55am Start: 11-02-2022 End: 07-01-2023 take 1 tablet by mouth at bedtime Spironolactone 25 mg tablet Discontinued 25 mg PO AT BEDTIME November 02, 2022 1:00am July 01, 2023 7:10pm Start: 10-20-2022 End: 07-01-2023 take 25 mg by mouth at bedtime Spironolactone Disconti nued 25 MG PO AT BEDTIME November 02, 2022 1:00am July 01, 2023 7:10pm Comment on above: Take 25 mg by mouth once daily. thyroid (ARMOUR) tablet 240 mg (1 source) Start: 12-22-2020 thyroid (ARMOUR) tablet 240 mg Thyroid (Pork) (4 sources) Start: 12-18-2020 Thyroid (Pork) Active 120 TABLET PO SUMOTUWETHSA December 18, 2020 12:00am Start: 12-18-2020 Thyroid (Pork) Active 240 MG PO December 18, 2020 12:00am Thyroid (Pork) ([place] Thyroid) 30 mg tablet (2 sources) Start: 07-21-2024 Thyroid (Pork) ([place] Thyroid) 30 mg tablet Active 30 mg PO MOWEFR July 21, 2024 12:00am Thyroid (Pork) 120 MG tablet (4 sources) Start: 12-18-2020 take 1 tablet by mouth once daily Thyroid (Pork) 120 MG tablet Active 120 {tbl} PO DAILY December 18, 2020 12:00am Start: 12-18-2020 End: 03-05-2024 Thyroid (Pork) 120 MG tablet Discontinued 240 mg PO December 18, 2020 12:00am March 05, 2024 2:16pm thyroid (custodial) 120 mg oral tablet (20 sources) Start: 01-20-2025 take 1 tablet by mouth once daily in the morning ARMOUR THYROID 120 mg tablet Indications: Acquired hypothyroidism Take 1 tablet PO daily in AM 90 tablet 1 01/20/2025 Active Start: 11-02-2024 take 1 tablet by vaibhav th once in the morning ARMOUR THYROID 30 mg tablet Indications: Acquired hypothyroidism Take 1 tablet by mouth every Thursday, Thursday, and Thursday. In the morning. (Take this is addition to the 120 mg armor thyroid) 36 tablet 1 11/02/2024 Active Start: 11-02-2024 take 1 tablet by vaibhav th once in the morning ARMOUR THYROID 30 mg tablet Indications: Acquired hypothyroidism Take 1 tablet by mouth every Thursday, Thursday, and Thursday. In the morning. (Take this is addition to the 120 mg armor thyroid) 36 tablet 1 11/02/2024 Active Start: 08-15-2024 take 1 tablet by vaibhav th once daily in the morning ARMOUR THYROID 120 mg tablet Indications: Acquired hypothyroidism Take 1 tablet PO daily in AM 90 tablet 1 08/15/2024 Active Start: 06-15-2024 End: 11-01-2024 take 1 tablet by mouth once in the morning ARMOUR THYROID 30 mg tablet Indications: Acquired hypothyroidism Take 1 tablet by mouth every Thursday, Thursday, and Thursday. In the morning. (Take this is addition to the 120 mg armor thyroid) 36 tablet 1 06/15/2024 11/01/2024 Discontinued Start: 10-20-2022 take 2 tablets by mo uth every week [place] Thyroid 120 mg oral tablet 32 EA, Take one tablet by mouth every morning daily 6 days per week, then take two tablets 1 day per week., 0 Refill(s) Start Date: 10/20/22 Status: Ordered Start: 12-28-2020 End: 12-28-2020 take 2 tablets by mouth once daily thyroid (ARMOUR) 60 MG tablet Take 2 tablets by mouth daily On Wednesdays and Saturdays, take 240 mg 30 tablet 3 12/28/2020 Active Start: 12-18-2020 End: 08-11-2024 take 1 tablet by mouth once daily in the morning ARMOUR THYROID 120 mg tablet Indications: Acquired hypothyroidism Take 1 tablet PO daily in AM 90 tablet 1 01/06/2024 08/11/2024 Discontinued Start: 12-18-2020 Thyroid (Pork) Active 240 MG PO WESA December 18, 2020 12:00am pt takes on Wednesdays and Saturdays Comment on above: Take 1 tablet PO [...] Drug Class(es) Dates Sig (Normalized) Sig (Original) acetaminophen 325 mg / oxyCODONE hydrochloride 5 mg oral tablet (2 sources) Opioid Agonist Start: 12-27-2024 End: 01-09-2025 Oxycodone-Acetamin ophen (Percocet) 5-325 mg tablet Discontinued 1 {tbl} PO Q4H as needed for pain 16 04December 27, 2024 January 09, 2025 11:11am Blood Pressure Monitor (BLOOD PRESSURE KIT) kit (2 sources) Start: 05-25-2019 Blood Pressure Monitor (BLOOD PRESSURE KIT) kit Indications: Essential hypertension, benign 1 Device as directed. Dx: essential hypertension 1 Kit 0 05/25/2019 Active Comment on above: 1 Device as directed . Dx: essential hypertension busPIRone hydrochloride 5 mg oral tablet (16 sources) Start: 05-22-2024 End: 07-07-2024 take 1 tablet by mouth three times daily as needed Buspirone 5 mg tablet Discontinued 5 mg PO 3 TIMES DAILY NEEDED May 22, 2024 12:00am July 07, 2024 1:28pm Start: 11-25-2023 End: 02-23-2024 take 1 tablet by mouth every eight hours as needed busPIRone (BUSPAR) 5 mg tablet Take 1 tablet by mouth three times a day as needed. 90 tablet 2 11/25/2023 02/23/2024 Active Comment on above: Take 1 tablet by vaibhav th three times a day as needed. calcium chloride 0.0014 meq/ml / potassium chloride 0.004 meq/ml / sodium chloride 0.103 meq/ml / sodium lactate 0.028 meq/ml injectable solution (1 source) Start: 12-22-19 End: 12-24-19 lactated ringers infusion ceFAZolin 2000 mg injection (1 source) Cephalosporin Antibacterial Start: 12-22-19 End: 12-25-19 2,000 mg, Intravenous, EVERY 8 HOURS, First dose on Thu12/21/20 at 2300, Until Discontinued Until drain is removed cloNIDine hydrochloride 0.1 mg oral tablet (2 sources) Central alpha-2 Adrenergic Agonist Start: 05-22-20 End: 08-12-20 take 1 tablet by mouth every eight hours as needed Clonidine Hcl 0.1 mg tablet Discontinued 0.1 mg PO EVERY 8 HOURS NEEDED as needed for blood pressure May 22, 2024 12:00am August 12, 2024 5:26pm cyanocobalamin, vitamin B-12, 3,000 mcg cap (14 sources) Start: 11-21-19 End: 05-07-20 take 1 capsule by mouth once daily cyanocobalamin, vitamin B-12, 3,000 mcg cap Indications: Vitamin B12 deficiency Take 3,000 mcg by mouth once daily. 30 capsule 3 11/21/2021 05/07/2022 Discontinued Start: 11-21-2021 take 1 capsule by [facility] once daily cyanocobalamin, vitamin B-12, 3,000 mcg cap Indications: Vitamin B12 deficiency Take 3,000 mcg by mouth once daily. 30 capsule 3 11/21/2021 Active Comment on above: Take 3,000 mcg by mo [facility] once daily. dexamethasone 1 mg oral tablet (20 sources) Corticosteroid Start: 08-11-2024 End: 03-16-2025 dexAMETHasone (DECADRON) 1 mg tablet Indications: Type 2 diabetes mellitus with other circulatory complication, with long-term current use of insulin (HCC) Take the tablet at 11 pm and go for labs the next morning on fasting at 8 am 1 tablet 08/11/2024 03/16/2025 Discontinued Start: 12-22-2020 End: 12-22-2020 6 mg, Intravenous, EVERY 6 H OURS, First dose (after last modification) on Thu12/22/20 [...] once daily in the morning flash glucose scanning reader (FREESTYLE TARA 2 READER) (20 sources) Start: 07-15-2023 End: 03-16-2025 flash glucose scanning reader (FREESTYLE TARA 2 READER) Indications: Uncontrolled type 2 diabetes mellitus with hyperglycemia (HCC) 1 Device as directed. Type 2 diabetes uncontrolled, no insulin 1 Each 07/15/2023 03/16/2025 Discontinued Start: 07-15-2023 flash glucose scanning reader (FREESTYLE [...] . Type 2 diabetes uncontrolled, no insulin flash glucose sensor (FREESTYLE TARA 2 SENSOR) [...] lispro (HUMALOG) inj ection vial 0-6 Units 3 ml liraglutide 6 mg/ml pen injector (2 sources) GLP-1 Receptor Agonist Start: 12-14-2024 End: 12-14-2024 inject 0.6 mg by subcutaneous injection once daily liraglutide (VICTOZA) 0.6 mg/ 0.1 ml subcutaneous pen injector Indications: Uncontrolled type 2 diabetes mellitus with hyperglycemia (HCC) Inject 0.6 mg subcutaneously once daily. 3 mL 3 12/14/2024 12/14/2024 Discontinued losartan potassium 25 mg oral tablet (19 sources) Angiotensin 2 Receptor Kari Start: 08-17-2024 End: 03-16-2025 take 1 tablet by mouth once losartan (COZAAR) 25 mg tablet Take 1 tablet by mouth every afternoon. 11/04/2024 03/16/2025 Discontinued (Discontinued by another Health Care Provider) Start: 11-13-2023 End: 05-11-2024 take 1 tablet [...] 1 tablet by vaibhav th once daily. magnesium citrate 58.2 mg/ml oral [...] 90 tablet 1 08/27/2022 06/19/2023 Discontinued Start: 12-18-2020 End: 02-19-2022 take 1 tablet by mouth once daily metoprolol succinate ER (TOPROL XL) 25 mg 24 hr tablet Indications: Essential hypertension, benign Take 1 tablet by mouth once daily. 90 tablet 3 05/01/2021 02/19/2022 Discontinued Comment on above: Take 1 tablet by vaibhav th once daily. nystatin 100 unt/mg / triamcinolone acetonide 0.001 mg/mg topical ointment (4 sources) Polyene Antifungal, Corticosteroid Start: 04-24-20 End: 02-01-20 nystatin-triamcinolo ne (MYCOLOG) ointment Indications: Yeast infection of the skin Apply sparingly to perineum twice daily for irritation/infection . 30 g 0 04/24/2021 01/31/2022 Discontinued Comment on above: Apply sparingly to p erineum twice daily for irritation/infection. oxyCODONE hydrochloride 10 mg oral tablet (11 sources) Opioid Agonist Start: 01-12-20 End: 01-19-20 take 1 tablet by mouth three times daily Oxycodone 10 MG tablet Discontinued 10 mg PO THREE TIMES A DAY 17 04January 11, 2021 January 17, 2021 12:00am January 18, 2021 12:03am Start: 01-11-2021 take 10 mg by mouth every four hours as needed Oxycodone Active 10 MG PO EVERY 4 HOURS NEEDED January 11, 2021 Start: 12-21-2020 take 5 mg by mouth e very four hours as needed for pain 5 mg, Oral, EVERY 4 HOURS PRN, Pain Moderate (4-6), Starting Thu12/21/20 at 0329 Semaglutide (6 sources) Start: 03-16-2023 End: 03-05-2024 Semaglutide (Ozempic) 0.25 m g or 0.5 mg (2 mg/3 mL) pen injector Discontinued 0.5 mg SC MO March 16, 2023 12:00am March 05, 2024 2:17pm Start: 03-16-2023 Semaglutide (O zempic) 0.25 mg or 0.5 mg (2 mg/3 mL) pen injector Active 0.5 MG SC MO March 16, 2023 12:00am Start: 03-16-2023 Semaglutide (O zempic) 0.25 mg or 0.5 mg (2 mg/3 mL) pen injector Active 0.5 MG SC EVERY WEEK March 16, 2023 12:00am Semaglutide (2 sources) Start: 03-05-2024 End: 03-09-2024 Semaglutide (Ozempic) 1 mg/dose (4 mg/3 mL) pen injector Discontinued 1 mg SC EVERY WEEK March 05, 2024 12:00am March 09, 2024 1:33pm semaglutide (OZEMPIC) 1 mg/dose (4 mg/3 mL) pen (20 sources) Start: 01-06-2024 End: 01-27-2024 inject 1 mg by subcutaneous injection every [...] mg subcutan eously one time a week. SITagliptin 100 mg oral tablet (20 sources) Dipeptidyl Peptidase 4 Inhibitor Start: 03-21-20 End: 01-27-20 take 1 tablet by mouth once daily Sitagliptin Phosphate (Januvia) 100 mg tablet Discontinued 100 mg PO daily July 07, 2024 12:00am January 26, 2025 2:10pm Vit C-Zinc Citrate-Elderberry (Sambucus Elderberry) 30-1.1-25 mg tablet,chewable (2 sources) Start: 05-22-20 End: 12-14-19 Vit C-Zinc Citrate-Elderberry (Sambucus Elderberry) 30-1.1-25 mg tablet,chewable Discontinued 1 {tbl} PO DAILY May 22, 2024 12:00am December 13, 2024 9:08am vitamin b12 1 mg extended release oral tablet (20 sources) Vitamin B12 Start: 06-23-20 Cyanocobalamin 1,000 mcg TbER Indications: Vitamin B12 deficiency 2 tablets daily 180 tablet 1 06/23/2023 Active Start: 11-02-2022 End: 03-05-2024 take 3 tablets by mouth once daily Cyanocobalamin (Vitamin B-12) 1,000 mcg tablet Discontinued 3000 ug PO DAILY November 02, 2022 1:00am March 05, 2024 2:15pm Start: 11-02-2022 take 3000 ug by mout h once daily Cyanocobalamin (Vitamin B-12) Active 3000 MCG PO DAILY November 02, 2022 1:00am Start: 11-02-2022 take 1000 ug by mout h once daily Cyanocobalamin (Vitamin B-12) Active 1000 MCG PO DAILY November 02, 2022 1:00am Start: 05-07-2022 End: 02-02-2023 take 3 tablets [...] Classification Problem Date Documented Da te Episodic/Chronic Acute cerebrovascular disease (20 sources) Cerebrovascular accident; Translations: [Cerebral infarction, unspecified] 11-02-2022 Chronic Adjustment disorders (20 sources) Adjustment disorder with depressed mood; Translations: [Adjustment disorder with depressed mood] Onset: 6 07-13-2006 Chronic Anxiety disorders (20 sources) Anxiety state; Translations: [Generalized anxiety disorder] Onset: 6 07-13-2006 Chronic Chronic kidney disease (1 source) Chronic kidney disease, unspecified; Translations: [Anemia of chronic renal failure, unspecified CKD stage] Onset: 4 Chronic Chronic kidney disease (2 sources) Chronic kidney disease; Translations: [Chronic kidney disease (CKD) stage G3b/A1, moderately decreased glomerular filtration rate (GFR) between 30-44 mL/min/1.73 square meter and albuminuria creatinine ratio less than 30 mg/g (HCC)] Onset: 4 Complication of device; implant or graft (9 sources) Catheter-associated urinary tract infection; Translations: [Infection and inflammatory reaction due to indwelling urethral catheter, initial encounter] 01-11-2021 Episodic Conduction disorders (2 sources) First degree atrioventricular block; Translations: [Atrioventricular block, first degree] 08-19-2024 Chronic Deficiency and other anemia (1 source) Anemia in chronic kidney disease; Translations: [Anemia of chronic renal failure, unspecified CKD stage] Onset: 4 Chronic Deficiency and other anemia (1 source) Iron deficiency anemia; Translations: [Iron deficiency anemia, unspecified] Episodic Diabetes mellitus with complications (20 sources) Type II diabetes mellitus uncontrolled; Translations: [Type 2 diabetes mellitus with hyperglycemia] Onset: 0 05-21-2020 Chronic Diabetes mellitus without complication (20 sources) Type 2 diabetes mellitus without complication; Translations: [Type 2 diabetes mellitus without complications] Onset: 6 Resolved: 3 09-23-2021 Chronic Diseases of white blood cells (2 sources) Leukocytosis; Translations: [Elevated white blood cell count, unspecified] 03-17-2024 Chronic Disorders of lipid metabolism (20 sources) Dyslipidemia; Translations: [Hyperlipidemia, unspecified] Onset: 9 10-12-2018 Chronic Essential hypertension (20 sources) Benign essential hypertension; Translations: [Essential (primary) hypertension] Onset: 6 07-13-2006 Chronic Comment on above: CONTROLLED WITH MED Fluid and electrolyte disorders (20 sources) Hyponatremia; Translations: [Hypo-osmolality and hyponatremia] 01-11-2021 Episodic Fracture of lower limb (3 sources) Closed fracture of distal left fibula; Translations: [Other fracture of upper and lower end of left fibula, initial encounter for closed fracture] Episodic Genitourinary symptoms and ill-defined conditions (10 sources) Retention of urine; Translations: [Retention of urine, unspecified] 01-11-2021 Episodic Heart valve disorders (20 sources) Nonrheumatic aortic (valve) stenosis; Translations: [Aortic valve disorders] Onset: 9 09-06-2019 Chronic Hypertension with complications and secondary hypertension (4 sources) Benign hypertensive heart disease; Translations: [Hypertensive heart disease without heart failure] Onset: 4 08-12-2024 Chronic Inflammatory diseases of female pelvic organs (1 source) Bacterial vaginosis; Translations: [Acute vaginitis] 01-03-2024 Episodic Mycoses (1 source) Candidiasis of vagina; Translations: [Vaginal yeast infection] 01-27-2024 Episodic Nausea and vomiting (1 source) Nausea and vomiting; Translations: [Nausea with vomiting, unspecified] 06-26-2023 Episodic Noninfectious gastroenteritis (3 sources) Gastroenteritis; Translations: [Noninfective gastroenteritis and colitis, unspecified] 03-21-2024 Episodic Nutritional deficiencies (20 sources) Vitamin D deficiency; Translations: [Vitamin D deficiency, unspecified] Onset: 2 Chronic Occlusion or stenosis of precerebral arteries (9 sources) Left carotid artery occlusion; Translations: [Occlusion and stenosis of left carotid artery] 03-18-2023 Chronic Other aftercare (1 source) Postoperative visit; Translations: [Encounter for other specified surgical aftercare] 02-06-2025 Episodic Other aftercare (1 source) Encounter for other specified surgical aftercare; Translations: [Encounter for other specified surgical aftercare] Onset: 5 Episodic Other circulatory disease (6 sources) Disorder of carotid artery; Translations: [Disorder of arteries and arterioles, unspecified] 10-21-2022 Chronic Other circulatory disease (2 sources) Disorder of arteries and arterioles, unspecified; Translations: [Disorder of arteries and arterioles, unspecified] Onset: 4 Chronic Other circulatory disease (5 sources) History of cerebrovascular accident; Translations: [Personal history of transient ischemic attack (TIA), and cerebral infarction without residual deficits] 08-17-2024 Episodic Other circulatory disease (2 sources) Personal history of transient ischemic attack (TIA), and cerebral infarction without residual deficits; Translations: [Personal history of transient ischemic attack (TIA), and cerebral infarction without residual deficits] Onset: 4 Episodic Other connective tissue disease (9 sources) Spasm; Translations: [Other muscle spasm] 12-28-2020 Episodic Other connective tissue disease (9 sources) History of lumbar fusion; Translations: [Arthrodesis status] 11-02-2022 Episodic Other connective tissue disease (9 sources) Neuropathic pain; Translations: [Neuralgia and neuritis, unspecified] 11-02-2022 Episodic Other female genital disorders (8 sources) Endometrial hyperplasia; Translations: [Endometrial hyperplasia, unspecified] 09-13-2024 Chronic Comment on above: not a hormonal ángela date, plan tvhbs, needs cardio and pcp clearance Other female genital disorders (2 sources) 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; Translations: [Benign endometrial hyperplasia] 08-12-2024 Chronic Other female genital disorders (2 sources) Endometrial hyperplasia, unspecified; Translations: [Endometrial hyperplasia, unspecified] Onset: 5 Chronic Other female genital disorders (1 source) Pruritus of vagina; Translations: [Other specified noninflammatory disorders of vagina] 01-02-2024 Episodic Other gastrointestinal disorders (20 sources) Celiac disease; Translations: [Celiac disease] Onset: 0 09-23-2021 Chronic Other gastrointestinal disorders (9 sources) Irritable bowel syndrome; Translations: [Irritable bowel syndrome without diarrhea] 11-02-2022 Chronic Other gastrointestinal disorders (1 source) Irritable bowel syndrome without diarrhea; Translations: [Irritable bowel syndrome, unspecified] Onset: 4 Chronic Other gastrointestinal disorders (2 sources) H/O: ulcerative colitis; Translations: [Personal history of other diseases of the digestive system] 05-30-2024 Episodic Other injuries and conditions due to external causes (4 sources) Injury of head; Translations: [Unspecified injury of head, initial encounter] 07-11-2023 Episodic Other nervous system disorders (20 sources) Spinal cord disease; Translations: [Disease of spinal cord, unspecified] Onset: 4 11-02-2022 Chronic Other nervous system disorders (9 sources) Walking disability; Translations: [Difficulty in walking, not elsewhere classified] 12-18-2020 Chronic Other nervous system disorders (6 sources) Polyneuropathy; Translations: [Polyneuropathy, unspecified] 03-18-2023 Chronic Other nervous system disorders (3 sources) Polyneuropathy, unspecified; Translations: [Unspecified hereditary and idiopathic peripheral neuropathy] 03-16-2023 Chronic Other non-traumatic joint disorders (2 sources) Acute ankle pain; Translations: [Pain in left ankle and joints of left foot] Episodic Other nutritional; endocrine; and metabolic disorders (20 sources) Obese class I; Translations: [Obesity, unspecified] Onset: 4 03-23-2024 Chronic Other nutritional; endocrine; and metabolic disorders (2 sources) Abnormal weight gain; Translations: [Abnormal weight gain] 02-09-2025 Episodic Other nutritional; endocrine; and metabolic disorders (1 source) Abnormal weight gain; Translations: [Abnormal weight gain] Onset: 5 Episodic Other screening for suspected conditions (not mental disorders or infectious disease) (5 sources) Endometrium thickened; Translations: [Abnormal findings on diagnostic imaging of other specified body structures] Onset: 4 05-25-2024 Chronic Comment on above: CT 05/22/24 with 1.4c m lining. EMB abnormal cells no cancer, recommend d and c possible hysteroscopy for full evaluation, needs cardiac clearance, Peripheral and visceral atherosclerosis (20 sources) Renal artery stenosis; Translations: [Atherosclerosis of renal artery] Onset: 4 07-15-2023 Chronic Regional enteritis and ulcerative colitis (20 sources) Ulcerative colitis; Translations: [Ulcerative colitis, unspecified, without complications] Onset: 4 11-02-2022 Chronic Residual codes; unclassified (9 sources) History of lumbar discectomy; Translations: [Other specified postprocedural states] 11-02-2022 Episodic Residual codes; unclassified (9 sources) Tobacco user; Translations: [Tobacco use] 11-02-2022 Episodic Residual codes; unclassified (1 source) Difficulty sleeping ; Translations: [Sleep deprivation] 01-27-2024 Episodic Residual codes; unclassified (2 sources) Positive measurement finding; Translations: [Other nonspecific abnormal findings] 08-12-2024 Episodic Comment on above: Negative pap; Rpt pa p and hpv 1 year Residual codes; unclassified (1 source) Acquired absence of both cervix and uterus; Translations: [Acquired absence of both cervix and uterus] Onset: 5 Episodic Screening and history of mental health and substance abuse codes (20 sources) Tobacco use and exposure - finding; Translations: [Personal history of nicotine dependence] Onset: 3 Episodic Spondylosis; intervertebral disc disorders; other back problems (2 sources) Prolapsed lumbar intervertebral disc; Translations: [Lumbar disc herniation] Onset: 1 12-21-2020 Chronic Spondylosis; intervertebral disc disorders; other back problems (20 sources) Lumbar radiculopathy; Translations: [Radiculopathy, lumbar region] 11-02-2022 Episodic Substance-related disorders (20 sources) Tobacco user; Translations: [Nicotine dependence, unspecified, uncomplicated] Onset: 0 10-29-2009 Chronic Syncope (4 sources) Near syncope; Translations: [Syncope and collapse] 07-11-2023 Episodic Thyroid disorders (20 sources) Hypothyroidism; Translations: [Hypothyroidism, unspecified] Onset: 6 11-13-2015 Chronic Past or Other Problems Problem Classification Problem Date Documented Date Episodic/Chronic Abdominal pain (20 sources) Right upper quadrant pain; Translations: [Right upper quadrant pain] Onset: 02-16-2007 Resolved: 12-08-2022 02-16-2007 Episodic Comment on above: resolved. CT otherwi se normal. resolved Cardiac dysrhythmias (20 sources) Palpitations; Translations: [Palpitations] Onset: 02-19-2022 Episodic Diabetes mellitus without complication (5 sources) Hyperglycemia; Translations: [Hyperglycemia, unspecified] Onset: 03-09-2024 06-26-2023 Episodic Malaise and fatigue (20 sources) Fatigue; Translations: [Other fatigue] Onset: 09-07-2017 09-07-2017 Episodic Nutritional deficiencies (20 sources) Cobalamin deficiency; Translations: [Deficiency of other specified B group vitamins] Onset: 09-10-2022 Episodic Other aftercare (1 source) long-term (current) use of insulin; Translations: [Type 2 diabetes mellitus with other circulatory complication, with long-term current use of insulin (HCC)] Onset: 12-09-2023 Episodic Other connective tissue disease (20 sources) Medial epicondylitis of left humerus; Translations: [Medial epicondylitis, left elbow] Onset: 09-07-2017 09-07-2017 Episodic Other screening for suspected conditions (not mental disorders or infectious disease) (20 sources) Patient encounter status; Translations: [Encounter for screening mammogram for malignant neoplasm of breast] Onset: 06-24-2024 Episodic Residual codes; unclassified (1 source) Sleep deprivation; Translations: [Poor sleep] Onset: 05-17-2024 Episodic Unclassified (1 source) Patient encounter status 01-03-2025 Results Test Name Value Interpretation Reference Range Facility [facility] 04-06-[address] [facility] LEIDY BLANCO ([id number]) 1955 F Date Time Provider Department 04/06/25 [facility] During your visit today, we recorded the following information about you: Lisa Aparicio RN 04/06/2025 10:40 AM Signed PRIOR AUTHORIZATION Medication for Prior Authorization: [place] Insurance Company: [facility] Medicare Patient insurance ID number: [id number] OLVIN Whitfield Janice, LPN 04/06/2025 11:00 AM Signed Electronic PA requested for both doses 120mg and 30 mg Liz Rihcards LPN 04/06/2025 11:24 AM Signed PA completed with both doses. Liz Richards LPN 04/06/2025 1:46 PM Signed This was denied last year and again this year. ote from payer: Request Reference Number: [id number]. ARMOUR THYRO TAB 120MG is denied for not meeting the prior authorization requirement(s). Details of this decision are in the notice attached below or have been faxed to you. Payer: [employer] PBM Part D [phone] Electronic appeal: Not supported Appeal instructions: Appeals are not supported through [facility]. Please refer to the fax case notice for appeals information and instructions. View History Notes Time User Attachment Attachment received from payer. 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 To be filled at: [facility] [address] [place] [phone] [facility] - [phone] Prior Authorization History for ARMOUR THYROID 120 mg tablet 1 year ago Denied Liz Richards LPN 04/07/2025 10:07 AM Signed Pt notified via my chart. Allergies As of Date: 04/06/2025 Noted Allergy Reaction ASA (SALICYLATES) 01/05/2006 4 - Hives 8 - GI Upset Comments: As a child GLUTEN 10/17/2016 5 - Intolerance METFORMIN 8 - GI Upset 9 - Itching PREDNISONE 10/02/2012 9 - Itching SULFA (SULFONAMIDE ANTIBIOTICS) 12/29/2005 2 - Rash Date Reviewed: 03/22/2025 Reviewed by: Gini Martinez LPN - Fully Assessed Reason for Visit: Insurance Authorization [[id number]] Prescriptions as of 04/07/2025 - blood sugar diagnostic (BLOOD GLUCOSE TEST) test strip Test blood sugar(s) 4 times daily. Dx: Type 2 DM - Controlled E11.9 Insulin: Yes - Lancets Test blood sugar(s) 4 times daily. Dx: Type 2 DM - Controlled E11.9 Insulin: Yes - insulin glargine (LANTUS SOLOSTAR U-100 INSULIN) 100 unit/mL (3 mL) Inject 25 Units subcutaneously daily at bedtime. - ondansetron orally disintegrating (ZOFRAN ODT) 4 mg disintegrating tablet Take 1 tablet by mouth every 8 hours as needed for nausea/vomiting. - atorvastatin (LIPITOR) 40 mg tablet Take 1 tablet by mouth once daily. - glimepiride (AMARYL) 2 mg tablet Take 1 tablet by mouth two times a day with meals. - pantoprazole DR (PROTONIX) 40 mg tablet Take 1 tablet by mouth once daily. - dulaglutide (TRULICITY) 1.5 mg/0.5 mL pen injector Inject 1.5 mg subcutaneously one time a week. - ARMOUR THYROID 120 mg tablet Take 1 tablet PO daily in AM - ergocalciferol 50,000 unit capsule (VITAMIN D2, DRISDOL) Take 1 capsule by mouth two times a week. - clopidogrel (PLAVIX) 75 mg tablet Take 1 tablet by mouth once daily. - carvedilol (COREG) 6.25 mg tablet Take 1 tablet by mouth two times a day with meals. - ARMOUR THYROID 30 mg tablet Take 1 tablet by mouth every Thursday, Thursday, and Thursday. In the morning. (Take this is addition to the 120 mg armor thyroid) - blood sugar diagnostic (ONETOUCH VERIO TEST STRIPS) test strip Test blood sugar(s) 4 times daily. Dx: Type 2 DM - Uncontrolled E11.65 Insulin: Yes - Insulin [place], Disposable, (BD ULTRA-FINE MARIA T PEN NEEDLE) 32 gauge x 5/32 Use one needle for each dose. 1/day. - blood sugar diagnostic (BLOOD GLUCOSE TEST) test strip Test blood sugar(s) 2 times daily. Dx: Type 2 DM - Uncontrolled E11.65 Insulin: No - spironolactone (ALDACTONE) 25 mg tablet Take 25 mg by mouth once daily. Once in am and once in pm - blood sugar diagnostic (FREESTYLE LITE STRIPS) test strip Test blood sugar(s) 8 times daily. Dx: E11.65. Insulin: No - ELDERBERRY FRUIT ORAL Take 1,000 mg by mouth once daily. - Blood Pressure Monitor (BLOOD PRESSURE KIT) 1 Each as directed. Dx: essential hypertension - Lancets lancets Test blood sugar(s) 2 times daily. Dx: Type 2 DM - Uncontrolled E11. Insulin: No Problem List As Of D (more content not included)... Normal [facility] CBC W Auto Differential pane l (Bld)on 03-29-2025 Basophils (Bld) [#/Vol] 0.06 10*3/uL Normal <0.11 [facility] Comment on above: Order Comment: Speci men Type: BLOOD SPECIMENOrdering Facility: [facility] Address: [address] [place] [address] Performed By: #### 5 7021-8 ####[facility] LABCLIA [id number] [place] [address] [place] Basophils/100 WBC (Bld) 0.6 % Normal [facility] Comment on above: Order Comment: Speci men Type: BLOOD SPECIMENOrdering Facility: [facility] Address: [address] [place] [address] Performed By: #### 5 7021-8 ####[facility] LABCLIA [id number] [place] [address] [place] Differential cell count method Nom (Bld) Auto Normal [facility] Comment on above: Order Comment: Speci men Type: BLOOD SPECIMENOrdering Facility: [facility] Address: [address] [place] [address] Performed By: #### 5 7021-8 ####[facility] LABCLIA [id number] [address] [place] [address] [place] Eosinophils (Bld) [#/Vol] 0.24 10*3/uL Normal <0.46 [facility] Comment on above: Order Comment: Speci men Type: BLOOD SPECIMENOrdering Facility: [facility] Address: [address] [place] [address] Performed By: #### 5 7021-8 ####[facility] LABCLIA [id number] [facility] [address] [place] Eosinophils/100 WBC (Bld) 2.2 % Normal [facility] Comment on above: Order Comment: Speci men Type: BLOOD SPECIMENOrdering Facility: [facility] Address: [address] [place] [address] Performed By: #### 5 7021-8 ####[facility] LABCLIA [id number] [facility] [address] [place] Erythrocyte distribution width (RBC) [Ratio] 12.8 % Normal 11.5-15.0 [facility] Comment on above: Order Comment: Speci men Type: BLOOD SPECIMENOrdering Facility: [facility] Address: [address] [place] [address] Performed By: #### 5 7021-8 ####[facility] LABCLIA [id number] [facility] [place] [id number] [place] Hematocrit (Bld) [Volume fraction] 40.0 % Normal 36.0-46.0 [facility] Comment on above: Order Comment: Speci men Type: BLOOD SPECIMENOrdering Facility: [facility] Address: [address] [place] [address] Performed By: #### 5 7021-8 ####[facility] LABCLIA [id number] [facility] [place] [id number] [place] Hemoglobin (Bld) [Mass/Vol] 13.9 g/dL Normal 11.5-15.5 [facility] Comment on above: Order Comment: Speci men Type: BLOOD SPECIMENOrdering Facility: [facility] Address: [address] [place] [address] Performed By: #### 5 7021-8 ####[facility] LABCLIA [id number] [place] [address] [place] Immature granulocytes (Bld) [#/Vol] 0.06 10*3/uL Normal <0.10 [facility] Comment on above: Order Comment: Speci men Type: BLOOD SPECIMENOrdering Facility: [facility] Address: [address] [place] [address] Performed By: #### 5 7021-8 ####[facility] LABCLIA [id number] [place] [address] [place] Immature granulocytes/100 WBC (Bld) 0.6 % Normal [facility] Comment on above: Order Comment: Speci men Type: BLOOD SPECIMENOrdering Facility: [facility] Address: [address] [place] [address] Performed By: #### 5 7021-8 ####[facility] LABCLIA [id number] [place] [address] [place] Lymphocytes (Bld) [#/Vol] 2.27 10*3/uL Normal 1.00-4.00 [facility] Comment on above: Order Comment: Speci men Type: BLOOD SPECIMENOrdering Facility: [facility] Address: [address] [place] [address] Performed By: #### 5 7021-8 ####[facility] LABCLIA [id number] [place] [id number] [place] Lymphocytes/100 WBC (Bld) 21.0 % Normal [facility] Comment on above: Order Comment: Speci men Type: BLOOD SPECIMENOrdering Facility: [facility] Address: [address] [place] [address] Performed By: #### 5 7021-8 ####[facility] LABCLIA [id number] [place] [address] [place] MCH (RBC) [Entitic mass] 30.5 pg Normal 26.0-34.0 [facility] Comment on above: Order Comment: Speci men Type: BLOOD SPECIMENOrdering Facility: [facility] Address: [address] [place] [address] Performed By: #### 5 7021-8 ####[facility] LABIA [id number] [address] [place] MCHC (RBC) [Mass/Vol] 34.8 g/dL Normal 30.5-36.0 [facility] Comment on above: Order Comment: Speci men Type: BLOOD SPECIMENOrdering Facility: [facility] Address: [address] [place] [address] Performed By: #### 5 7021-8 ####[facility] LABIA [id number] [place] [address] [place] MCV (RBC) [Entitic vol] 87.9 fL Normal 80.0-100.0 [facility] Comment on above: Order Comment: Speci men Type: BLOOD SPECIMENOrdering Facility: [facility] Address: [address] [place] [address] Performed By: #### 5 7021-8 ####[facility] LABIA [id number] [place] [address] [place] Monocytes (Bld) [#/Vol] 0.75 10*3/uL Normal <0.87 [facility] Comment on above: Order Comment: Speci men Type: BLOOD SPECIMENOrdering Facility: [facility] Address: [address] [place] [address] Performed By: #### 5 7021-8 ####[facility] LABIA [id number] [place] [address] [place] Monocytes/100 WBC (Bld) 6.9 % Normal [facility] Comment on above: Order Comment: Speci men Type: BLOOD SPECIMENOrdering Facility: [facility] Address: [address] [place] [address] Performed By: #### 5 7021-8 ####[facility] LABCLIA [id number] [address] [address] [place] Neutrophils (Bld) [#/Vol] 7.45 10*3/uL Normal 1.45-7.50 [facility] Comment on above: Order Comment: Speci men Type: BLOOD SPECIMENOrdering Facility: [facility] Address: [address] [place] [address] Performed By: #### 5 7021-8 ####[facility] LABCLIA [id number] [place] [address] [place] Neutrophils/100 WBC (Bld) 68.7 % Normal [facility] Comment on above: Order Comment: Speci men Type: BLOOD SPECIMENOrdering Facility: [facility] Address: [address] [place] [address] Performed By: #### 5 7021-8 ####[facility] LABCLIA [id number] [place] [address] [place] Nucleated RBC (Bld) [#/Vol] 10*3/uL Normal <0.01 [facility] Comment on above: Order Comment: Speci men Type: BLOOD SPECIMENOrdering Facility: [facility] Address: [address] [place] [address] Performed By: #### 5 7021-8 ####[facility] LABCLIA [id number] [place] [address] [place] Nucleated RBC/100 WBC (Bld) [Ratio] 0.0 /100 WBC Normal [facility] Comment on above: Order Comment: Speci men Type: BLOOD SPECIMENOrdering Facility: [facility] Address: [address] [place] [address] Performed By: #### 5 7021-8 ####[facility] LABCLIA [id number] [facility] [address] [address] [place] Platelet mean volume (Bld) [Entitic vol] 9.7 fL Normal 9.0-12.7 [facility] Comment on above: Order Comment: Speci men Type: BLOOD SPECIMENOrdering Facility: [facility] Address: [address] [place] [address] Performed By: #### 5 7021-8 ####[facility] LABCLIA [id number] [address] [address] [place] Platelets (Bld) [#/Vol] 386 10*3/uL Normal 150-400 [facility] Comment on above: Order Comment: Speci men Type: BLOOD SPECIMENOrdering Facility: [facility] Address: [address] [place] [address] Performed By: #### 5 7021-8 ####[facility] LABCLIA [id number] [address] [address] [place] RBC (Bld) [#/Vol] 4.55 10*6/uL Normal 3.90-5.20 [facility] Comment on above: Order Comment: Speci men Type: BLOOD SPECIMENOrdering Facility: [facility] Address: [address] [place] [address] Performed By: #### 5 7021-8 ####[facility] LABCLIA [id number] [facility] [address] [address] [place] WBC (Bld) [#/Vol] 10.83 10*3/uL Normal 3.70-11.00 [facility] Comment on above: Order Comment: Speci men Type: BLOOD SPECIMENOrdering Facility: [facility] Address: [address] [place] [address] Performed By: #### 5 7021-8 ####[facility] LABCLIA [id number] [address] [place] [address] [place] Iron and Iron binding capaci panel 03-29-2025 Iron [Mass/Vol] 69 ug/dL Normal 41-186 [facility] Comment on above: Order Comment: Speci men Type: BLOOD SPECIMENOrdering Facility: [facility] Address: [address] [place] [address] Performed By: #### 5 0190-8, 26411-2, 30812-27, 2731-04 ####[facility] LABCLIA [id number] [address] [address] [place] Iron binding capacity [Mass/Vol] 375 ug/dL Normal 232-386 [facility] Comment on above: Order Comment: Speci men Type: BLOOD SPECIMENOrdering Facility: [facility] Address: [address] [place] [address] Performed By: #### 5 0190-8, 69463-4, 30812-27, 2731-04 ####[facility] LABCLIA [id number] [address] [address] [place] Iron/TIBC [Molar ratio] 18.4 % Normal 15.0-57.0 [facility] Comment on above: Order Comment: Speci men Type: BLOOD SPECIMENOrdering Facility: [facility] Address: [address] [place] [address] Performed By: #### 5 0190-8, 22095-1, 30812-27, 2731-04 ####[facility] LABCLIA [id number] [address] [address] [place] [facility]0 Parathyrin.intact [Mass/Vol] 40 pg/mL Normal 15-65 [facility] Comment on above: Order Comment: Speci men Type: BLOOD SPECIMENOrdering Facility: [facility] Address: [address] [place] [address] Performed By: #### 5 0190-8, 84355-4, 3083-09, 2731-8 ####[facility] LABCLIA [id number] [place] [address] [place] Prot/Creat Uron 03-29-2025 Protein/Creatinine (U) [Mass ratio] 0.08 mg/mg Normal <0.15 [facility] Comment on above: Order Comment: Speci men Type: URINE SPECIMENOrdering Facility: [facility] Address: [address] [place] [address] Result Comment: Adul t Proteinuria Categories: <0.15 mg/mg is considered normal to mildly increased 0.15 - 0.50 mg/mg is considered moderately increased >0.50 mg/mg is considered severely increased KDIGO. (2013). KDIGO 2012 Clinical Practice Guideline for the Evaluation and Management of Chronic Kidney Disease. Official Journal of the International Society of Nephrology, 3(1), 1-150. Performed By: #### 2 890-2 ####[facility] LABIA [id number] [place] [address] [place] Protein/Creatinine (U) [Mass ratio]on 03-29-2025 Creatinine (U) [Mass/Vol] 73.3 mg/dL Normal 20.0-300.0 [facility] Comment on above: Order Comment: Speci men Type: URINE SPECIMENOrdering Facility: [facility] Address: [address] [place] [address] Performed By: #### 2 890-2 ####[facility] LABIA [id number] [place] [id number] [place] Protein (U) [Mass/Vol] 6 mg/dL Normal 0-20 [facility] Comment on above: Order Comment: Speci men Type: URINE SPECIMENOrdering Facility: [facility] Address: [address] [place] [address] Performed By: #### 2 890-2 ####[facility] LABIA [id number] [place] [address] [place] Renal function 2000 panel 03-29-2025 Albumin [Mass/Vol] 4.3 g/dL Normal 3.9-4.9 [facility] Comment on above: Order Comment: Speci men Type: BLOOD SPECIMENOrdering Facility: [facility] Address: [address] [place] [address] Performed By: #### 5 0190-8, 03814-5, 30812-27, 2731-04 ####[facility] LABCLIA [id number] [place] [id number] [place] Anion gap [Moles/Vol] 13 mmol/L Normal 8-15 [facility] Comment on above: Order Comment: Speci men Type: BLOOD SPECIMENOrdering Facility: [facility] Address: [address] [place] [address] Performed By: #### 5 0190-8, 33374-9, 3083-09, 2731-04 ####[facility] LABCLIA [id number] [place] [address] [place] Calcium [Mass/Vol] 9.8 mg/dL Normal 8.5-10.2 [facility] Comment on above: Order Comment: Speci men Type: BLOOD SPECIMENOrdering Facility: [facility] Address: [address] [place] [address] Performed By: #### 5 0190-8, 55684-9, 3083-09, 2731-04 ####[facility] LABCLIA [id number] [place] [id number] [place] Chloride [Moles/Vol] 100 mmol/L Normal 98-107 [facility] Comment on above: Order Comment: Speci men Type: BLOOD SPECIMENOrdering Facility: [facility] Address: [address] [place] [address] Performed By: #### 5 0190-8, 77893-8, 30812-27, 2731-04 ####[facility] LABCLIA [id number] [address] [address] [place] CO2 [Moles/Vol] 23 mmol/L Normal 22-30 [facility] Comment on above: Order Comment: Speci men Type: BLOOD SPECIMENOrdering Facility: [facility] Address: [address] [place] [address] Performed By: #### 5 0190-8, 26621-0, 308-1, 2731-04 ####[facility] LABIA [id number] [address] [address] [place] Creatinine [Mass/Vol] 0.64 mg/dL Normal 0.58-0.96 [facility] Comment on above: Order Comment: Speci men Type: BLOOD SPECIMENOrdering Facility: [facility] Address: [address] [place] [address] Performed By: #### 5 0190-8, 73684-4, 3083-09, 2731-04 ####[facility] [id number] [address] [address] [place] Creatinine and Glomerular filtration rate.predicted panel (S/P/Bld) 96 mL/min/1.73m??? Normal >=60 [facility] Comment on above: Order Comment: Speci men Type: BLOOD SPECIMENOrdering Facility: [facility] Address: [address] [place] [address] Result Comment: Ana Paula mated Glomerular Filtration [...] accurately reflect actual GFR. Performed By: #### 5 0190-8, 50428-7, 3084-1, 8 ####[facility] LABIA [id number] [address] [address] [place] Glucose [Mass/Vol] 234 mg/dL High 74-99 [facility] Comment on above: Order Comment: Noryi emily Type: BLOOD SPECIMENOrdering Facility: [facility] Address: [address] [place] [address] Result Comment: The [place] [employer] (ADA) provides guidance for cutoff [...] Standards of Medical Care in Diabetes 2016, [place] [employer]. Diabetes Care. 2016.39(Suppl 1). Performed By: #### 5 0190-8, 22968-9, 3083-, 2731-04 ####[facility] LABIA [id number] [address] [address] [place] Phosphate [Mass/Vol] 3.1 mg/dL Normal 2.7-4.8 [facility] Comment on above: Order Comment: Abimbola diaz Type: BLOOD SPECIMENOrdering Facility: [facility] Address: [address] [place] [address] Performed By: #### 5 0190-8, 31874-8, 3083-09, 2731-04 ####[facility] LABIA [id number] [address] [address] [place] Potassium [Moles/Vol] 4.4 mmol/L Normal 3.7-5.1 [facility] Comment on above: Order Comment: Abimbola diaz Type: BLOOD SPECIMENOrdering Facility: [facility] Address: [address] [place] [address] Performed By: #### 5 0190-8, 73464-0, 30812-27, 2731-04 ####[facility] LABCLIA [id number] [address] [address] [place] Sodium [Moles/Vol] 136 mmol/L Normal 136-144 [facility] Comment on above: Order Comment: Speci men Type: BLOOD SPECIMENOrdering Facility: [facility] Address: [address] [place] [address] Performed By: #### 5 0190-8, 01587-5, 3083-09, 2731-04 ####[facility] LABCLIA [id number] [address] [address] [place] Urea nitrogen [Mass/Vol] 20 mg/dL Normal 7-21 [facility] Comment on above: Order Comment: Speci men Type: BLOOD SPECIMENOrdering Facility: [facility] Address: [address] [place] [address] Performed By: #### 5 0190-8, 40112-5, 3083-09, 2731-04 ####[facility] LABIA [id number] [address] [address] [place] Urate SerPl-mCncon Urate [Mass/Vol] 4.1 mg/dL Normal 2.5-6.6 [facility] Comment on above: Order Comment: Speci men Type: BLOOD SPECIMENOrdering Facility: [facility] Address: [address] [place] [address] Performed By: #### 5 0190-8, 81506-5, 3083-09, 2731-04 ####[facility] LABIA [id number] [address] [address] [place] C peptide SerPl-mCncon 03-22 C peptide [Mass/Vol] 4.4 ng/mL Normal 1.1-4.4 [facility] Comment on above: Order Comment: Speci men Type: BLOOD SPECIMENOrdering Facility: [facility] Address: [address] [place] [address] Performed By: #### 1 986-9 ####[facility] LABCLALEXANDRA [id number] [facility] [place] [place] [address] [place] CNCOon 03-22-2025 CNCO Clinical report posted in error Letter Text Normal [facility] CNOVon 03-22-2025 CNOV Office Visit (FAMPWS ) LEIDY BLANCO ([id number]) 1955 F Date Time Provider Department 03/22/25 2:00 PM LILIANA BENNETT [facility] During your visit today, we recorded the following information about you: Pulse Blood pressure Weight 78/minute 140/70 84.3 kg Liliana Bennett APRN.ENGINEERING TEST SPECIALIST 03/22/2025 8:07 PM Signed This is a 69 year old female who presents today with: Nausea/vomiting, possible stomach bug x 1 week; DM follow up 02/[address] Farrar: . Uncontrolled type 2 diabetes mellitus with hyperglycemia (HCC) - ICD9: 250.02, ICD10: E11.65 (primary diagnosis) - Uncontrolled - Improving control - Increase dulaglutide (Trulicity) - DULAGLUTIDE 1.5 MG/0.5 ML SUBCUTANEOUS PEN INJECTOR - HEMOGLOBIN A1C - C-PEPTIDE BLD - COMPREHENSIVE METABOLIC PANEL 03/20 phone encounter: Pt phoned to report over the weekend she had vomiting one day and diarrhea 2 days (3 stools one day, 2 stools the next) with the nausea. Reports she does have hx of ulcerative colitis- and unsure if is reason for the diarrhea. Reports today she has nausea but is much improved after taking zofran. Pt reports her BS this morning was 156 and she is concerned about her BS numbers being elevated- !96 yesterday morning, and 219 on 03/16/25. Pt reports she has the trulicity 1.5 but has not started it yet- states she is concerned about taking it because back when she tried ozempic she developed pancreatitis. Scheduled f/u appt with [facility]. HISTORY OF PRESENT ILLNESS: Hyperglycemia: - Reports extremely high blood glucose levels -Fasting blood sugars 126-219 -Lunch /supper 201-273, some supper readings in higher 100s Hemoglobin A1C (%) Date Value 10/05/2024 7.3 11/13/2021 6.3 Hemoglobin A1C (POCT) (%) Date Value 01/06/2024 6.5 - Initiated on Trulicity 0.75 mg weekly in November; scheduled to increase to 1.5 mg on Thursday. - Previously on Ozempic, which reportedly led to pancreatitis. I am unable to confirm this in the chart, she was in the hospital with GI related symptoms. - Currently on Lantus 20 units QAM. - Adheres to a low-carb diet, consuming approximately 20 grams of carbohydrates per meal. - Breakfast: Egg wraps with ham or salami and cheese. - Lunch: 30-gram protein shake with 4 grams of carbohydrates, occasionally with an orange or apple. - Dinner: [place] or tuna with broccoli, cauliflower, or [place] sprouts. - Snacks: Granola bars (17 grams of carbohydrates) and beef sticks (7 grams of protein). - Drinks water with electrolytes, B vitamins, potassium, and sodium. - Reports chronic low sodium levels. - Exercises on a treadmill for 30 minutes daily when not ill. She obtained labs today that were ordered by PCP and endocrinology She follows with Dr Isaac in endocrinology, last seen 02/09. She's not sure she plans to continue to consult with endocrinology. Dizziness: - Experiences dizziness when blood glucose levels are elevated. - Manages dizziness by lying down or sitting until it subsides. Ulcerative Colitis: - Uses medical marijuana to manage symptoms, taking a few hits from a joint or cone as needed 08/11/24 09:47 10/07/24 10:58 11/11/24 09:46 12/14/24 11:02 02/09/25 10:03 02/17/25 15:54 03/22/25 13:46 Weight 182 lb 3.2 oz (82.6 kg) 182 lb 1.6 oz (82.6 kg) 180 lb (81.6 kg) 186 lb (84.4 kg) 187 lb 12.8 oz (85.2 kg) 188 lb (85.3 kg) 185 lb 12.8 oz (84.3 kg) HTN/HLD: 08/11/24 09:47 10/07/24 10:58 11/11/24 09:46 12/14/24 11:02 02/09/25 10:03 02/17/25 15:54 03/22/25 13:46 BP 150/67 116/60 124/74 136/70 122/78 146/80 140/70 -taking coreg, atoravastatin, spironolactone -BP is elevated, may want to consider NICOLE inhibitor at next visit for additional kidney protection with diabetes PAST MEDICAL HISTORY: PAST MEDICAL HISTORY Diagnosis Date Aortic stenosis, moderate 08/2019 Benign hypertensive heart disease Celiac disease (HCC) Diabetes mellitus without mention of complication Diabetes mellitus Fatty liver Grave's disease IBS (irritable bowel syndrome) Medical marijuana use has card Ulcerative colitis, unspecified Vitamin D deficiency PAST SURGICAL HISTORY Procedure Laterality Date COLONOSCOPY FLX DX W/COLLJ SPEC WHEN PFRMD 09/09/2013 Colonoscopy ESOPHAGOGASTRODUODENO SCOPY TRANSORAL DIAGNOSTIC 09/09/2013 EGD INFUSE RADIOACTIVE MATERIALS Iodine ablation for Grave's disease LAP UMBILICAL HERNIA REPAIR 02/17/2000 Lap umbilical hernia with a 19cm mesh LAPAROSCOPY SURG CHOLECYSTECTOMY 03/01/2007 Lap Mary with visiport RUQ insertion LIG/TRNSXJ FLP TUBE ABDL/VAG APPR UNI/BI Tubal ligation ALLERGIES Asa [Salicylates], Gluten, Metformin, Prednisone, and Sulfa (Sulfonamide Antibiotics) MEDICATIONS Current Outpatient Medications Medication Sig ondansetron orally disintegrating (ZOFRAN ODT) 4 mg disintegrating tablet Take 1 tablet by mouth every 8 hours as needed (more content not included)... Normal [facility] Comprehensive metabolic 2000 panelon 03-22-2025 Albumin [Mass/Vol] 4.4 g/dL Normal 3.9-4.9 [facility] Comment on above: Order Comment: Speci men Type: BLOOD SPECIMENOrdering Facility: [facility] Address: [address] [place], [place] [address] [address] Performed By: #### 2 4323-8 ####[facility] LABCLIA [id number] [facility] [address] [place] [address] [place] ALP [Catalytic activity/Vol] 129 U/L High 34-123 [facility] Comment on above: Order Comment: Speci men Type: BLOOD SPECIMENOrdering Facility: [facility] Address: [address] [place] [address] Performed By: #### 2 4323-8 ####[facility] LABCLIA [id number] [place] [address] [place] ALT [Catalytic activity/Vol] 17 U/L Normal 7-38 [facility] Comment on above: Order Comment: Speci men Type: BLOOD SPECIMENOrdering Facility: [facility] Address: [address] [place] [address] Performed By: #### 2 4323-8 ####[facility] LABCLIA [id number] [place] [address] [place] Anion gap [Moles/Vol] 13 mmol/L Normal 8-15 [facility] Comment on above: Order Comment: Speci men Type: BLOOD SPECIMENOrdering Facility: [facility] Address: [address] [place] [address] Performed By: #### 2 4323-8 ####[facility] LABCLIA [id number] [place] [address] [place] AST [Catalytic activity/Vol] 18 U/L Normal 13-35 [facility] Comment on above: Order Comment: Speci men Type: BLOOD SPECIMENOrdering Facility: [facility] Address: [address] [place], [place] [address] Performed By: #### 2 4323-8 ####[facility] LABCLIA [id number] [place] [id number] [place] Bilirubin [Mass/Vol] 0.4 mg/dL Normal 0.2-1.3 [facility] Comment on above: Order Comment: Speci men Type: BLOOD SPECIMENOrdering Facility: [facility] Address: [address] [place], [place] [address] Performed By: #### 2 4323-8 ####[facility] LABCLIA [id number] [place] [id number] [place] Calcium [Mass/Vol] 10.3 mg/dL High 8.5-10.2 [facility] Comment on above: Order Comment: Speci men Type: BLOOD SPECIMENOrdering Facility: [facility] Address: [address] [place] [address] Performed By: #### 2 4323-8 ####[facility] LABCLIA [id number] [place] [id number] [place] Chloride [Moles/Vol] 98 mmol/L Normal 98-107 [facility] Comment on above: Order Comment: Speci men Type: BLOOD SPECIMENOrdering Facility: [facility] Address: [address] [place] [address] Performed By: #### 2 4323-8 ####[facility] LABCLIA [id number] [place] [id number] [place] CO2 [Moles/Vol] 24 mmol/L Normal 22-30 [facility] Comment on above: Order Comment: Speci men Type: BLOOD SPECIMENOrdering Facility: [facility] Address: [address] [place], [place] [address] Performed By: #### 2 4323-8 ####[facility] LABCLIA [id number] [facility] [place] [id number] [place] Creatinine [Mass/Vol] 0.69 mg/dL Normal 0.58-0.96 [facility] Comment on above: Order Comment: Speci men Type: BLOOD SPECIMENOrdering Facility: [facility] Address: [address] [place], [place] [address] Performed By: #### 2 4323-8 ####[facility] LABCLIA [id number] [place] [address] [place] Creatinine and Glomerular filtration rate.predicted panel (S/P/Bld) 94 mL/min/1.73m??? Normal >=60 [facility] Comment on above: Order Comment: Abimbola diaz Type: BLOOD SPECIMENOrdering Facility: [facility] Address: [address] [place] [address] Result Comment: Ana Paula mated Glomerular Filtration [...] reflect actual GFR. Performed By: #### 2 4323-8 ####[facility] LABCLIA [id number] [place] [address] [place] Glucose [Mass/Vol] 171 mg/dL High 74-99 [facility] Comment on above: Order Comment: Abimbola diaz Type: BLOOD SPECIMENOrdering Facility: [facility] Address: [address] [place] [address] Result Comment: The [place] Diabetes Association (ADA) provides guidance for cutoff [...] Standards of Medical Care in Diabetes 2016, [place] Diabetes Association. Diabetes Care. 2016.39(Suppl 1). Performed By: #### 2 4323-8 ####[facility] LABCLIA [id number] [place] [id number] [place] Potassium [Moles/Vol] 4.3 mmol/L Normal 3.7-5.1 [facility] Comment on above: Order Comment: Speci men Type: BLOOD SPECIMENOrdering Facility: [facility] Address: [address] [place] [address] Performed By: #### 2 4323-8 ####[facility] LABCLIA [id number] [place] [address] [place] Protein [Mass/Vol] 7.4 g/dL Normal 6.3-8.0 [facility] Comment on above: Order Comment: Speci men Type: BLOOD SPECIMENOrdering Facility: [facility] Address: [address] [place] [address] Performed By: #### 2 4323-8 ####[facility] LABCLIA [id number] [place] [address] [place] Sodium [Moles/Vol] 135 mmol/L Low 136-144 [facility] Comment on above: Order Comment: Speci men Type: BLOOD SPECIMENOrdering Facility: [facility] Address: [address] [place] [address] Performed By: #### 2 4323-8 ####[facility] LABIA [id number] [place] [address] [place] Urea nitrogen [Mass/Vol] 12 mg/dL Normal 7-21 [facility] Comment on above: Order Comment: Speci men Type: BLOOD SPECIMENOrdering Facility: [facility] Address: [address] [place] [address] Performed By: #### 2 4323-8 ####[facility] LABIA [id number] [place] [address] [place] GAD65 Ab Ser-aCncon 03-22-20 25 Glutamate decarboxylase 65 Ab Qn (S) <5.0 Normal <=5.0 [facility] Comment on above: Order Comment: Speci men Type: BLOOD SPECIMENOrdering Facility: [facility] Address: [address] [place] [address] Result Comment: Anti -glutamic acid decarboxylase antibody (GAD65) test usually in conjunction with another test such as IA-2 antibody is used as an aid in establishing the autoimmune nature of previously-diagnosed type I diabetes mellitus or in predicting of progression to type I diabetes mellitus in patients with certain autoimmune diseases including autoimmune gastritis among others. It is also used as an aid in diagnosis of stiff person syndrome and certain autoimmune nervous system diseases. Clinical correlation is required. Performed By: #### 1 3926-1 ####[facility] LABIA [id number] [place] [address] [place] Glutamate decarboxylase 65 A b Qn (S)on 03-22-2025 GLUTAMIC ACID DECARBOXYLAS AB QUALITATIVE Negative Normal Negative [facility] Comment on above: Order Comment: Abimbola diaz Type: BLOOD SPECIMENOrdering Facility: [facility] Address: [address] [place] [address] Performed By: #### 1 3926-1 ####[facility] [id number] [place] [address] [place] HbA1c (Bld)on 03-22-2025 Average glucose Estimated from glycated hemoglobin (Bld) [Mass/Vol] 183 mg/dL Normal [facility] Comment on above: Order Comment: Abimbola diaz Type: BLOOD SPECIMENOrdering Facility: [facility] Address: [address] [place] [address] Result Comment: eAG: (Estimated average glucose) is a calculated value from HgbA1c and is medical office representative of the average blood glucose level in the last 2-3 month period. Performed By: #### 5 5454-3 ####[facility] [id number] [place] [address] [place] HbA1c (Bld) [Mass fraction] 8.0 % High 4.3-5.6 [facility] Comment on above: Order Comment: Abimbola diaz Type: BLOOD SPECIMENOrdering Facility: [facility] Address: [address] [place] [address] Result Comment: [place] Diabetes Association guidelines indicate that patients with HgbA1c in the range 5.7-6.4% are at increased risk for development of diabetes, and intervention by lifestyle modification may be beneficial. HgbA1c greater or equal to 6.5% is considered diagnostic of diabetes. Performed By: #### 5 5454-3 ####[facility] LABCLIA [id number] [place] [address] [place] INSULINOMA ASSOCIATED ANTIBO DY 2on 03-22-2025 IA 2 ANTIBODY BLOOD <5.4 Normal <7.5 [facility] Comment on above: Order Comment: Speci emily Type: BLOOD SPECIMENOrdering Facility: [facility] Address: [address] [place] [address] Result Comment: Anti -insulinoma associated antigen 2 (IA-2) antibody test is used as an aid in diagnosis of type I diabetes mellitus, to predict the risk of progression to type I diabetes mellitus among susceptible individuals, and to predict the necessity of insulin therapy in adult-onset diabetes mellitus. Clinical correlation is required. Performed By: #### I A2AB ####[facility] LABCLIA [id number] [address] OF [place] ISLET CELL ABon 03-22-2025 ISLET CELL AB <1:4 Normal <1:4 [facility] Comment on above: Order Comment: Abimbola diaz Type: BLOOD SPECIMENOrdering Facility: [facility] Address: [address] [place] [address] Result Comment: INTE RPRETIVE INFORMATION: Islet Cell Ab, IgG Islet cell antibodies (ICAs) are associated with type 1 diabetes (TID), an autoimmune endocrine disorder. ICAs may be present years before the onset of clinical symptoms. To calculate Juvenile Diabetes Foundation (JDF) units: multiply the titer x 5 (1:8 8 x 5 = 40 JDF Units). This test was developed and its performance characteristics determined by [facility]. It has not been cleared or approved by the US Food and Drug Administration. This test was performed in a CLIA certified laboratory and is intended for clinical purposes. Performed By: [facility] [address] [place] [address] [employer] Instructor: Suresh Rothman MD, PhD CLIA Number: [id number] Performed By: #### Z NT8AB, ISLET ####[facility] [id number] [place] [address] ZINC TRANSPORTER 8 ANTIBODYo n 03-22-2025 ZINC TRANSPORTER 8 ANTIBODY <10.0 Normal 0.0-15.0 [facility] Comment on above: Order Comment: Speci men Type: BLOOD SPECIMENOrdering Facility: [facility] Address: [facility] [place] [address] Result Comment: INTE RPRETIVE INFORMATION: Zinc Transporter 8 Antibody A value greater than 15.0 Kronus Units/mL is considered positive for the Zinc Transporter 8 Antibody (ZnT8). Kronus Units are arbitrary. Kronus Units = U/mL. This assay is intended for the semi-quantitative determination of antibodies to ZnT8 in human serum. Results should be interpreted within the context of clinical symptoms. Performed By: [facility] [address] [place] [address] Water Aerob[employer] Instructor: Suresh Rothman MD, PhD CLIA Number: [id number] Performed By: #### Z NT8AB, ISLET ####[facility] LABORATORIESIA [id number] [place] [address] [facility] 03-18-[address] [facility] Telephone (FAMWS) ELIDY BLANCO ([id number]) 1955 F Date Time Provider Department 03/18/25 PREET FARRAR [facility] During your visit today, we recorded the following information about you: Josie Starks RN 03/18/2025 8:57 AM Signed Patient was told to contact office today with update on symptoms. Patient continues to have nausea today. Vomiting x 1 (yogurt) as that is all she is currently eating. No diarrhea. Patient did take insulin this morning and oral medication. FBS 196. Patient asking if Zofran could be sent to [facility]. Pended previous order of Zofran. Message from 03/17/2025: Spoke with pt she states did not take it that day at all in case . She states she has been sick for past 2 days with nausea and vomited once and diarrhea. Told her plenty of fluids and rest if no better when gets up tomorrow call in office open till noon. Josie Starks RN 03/18/2025 10:06 AM Signed Patient calls back to report that she had another episode of vomiting that was all bile this time. Doesn't think she has been exposed to anyone with any GI illness. Reviewed red flag symptoms to go to ER with if vomiting continues or dehydration is expected. Patient reports she did find a bottle of Zofran and took one but it is greater than a year old. Left Zofran pended for review. OLVIN Livingston Liza D, MD 03/18/2025 4:07 PM Signed The following approved medication requests have been transmitted electronically. Requested Prescriptions Signed Prescriptions Disp Refills ondansetron orally disintegrating (ZOFRAN ODT) 4 mg disintegrating tablet 20 tablet 0 Sig: Take 1 tablet by mouth every 8 hours as needed for nausea/vomiting. Authorizing Provider: CONCHIS JACOB MD Hudson, M Robin, RN 03/20/2025 11:18 AM Signed Pt phoned to report over the weekend she had vomiting one day and diarrhea 2 days (3 stools one day, 2 stools the next) with the nausea. Reports she does have hx of ulcerative colitis- and unsure if is reason for the diarrhea. Reports today she has nausea but is much improved after taking zofran. Pt reports her BS this morning was 156 and she is concerned about her BS numbers being elevated- !96 yesterday morning, and 219 on 03/16/25. Pt reports she has the trulicity 1.5 but has not started it yet- states she is concerned about taking it because back when she tried ozempic she developed pancreatitis. Scheduled f/u appt with Bautista. Preet Farrar DO 03/20/2025 5:24 PM Signed Patient also has the option to meet with the pharmacist here at [facility] to discuss medication concerns and options for diabetes Preet DO Dread Cox Amanda, RN 03/20/2025 5:56 PM Signed Pt called and is notified of providers message and instructions. Pt voices understanding and thanked provider for offer. She said she may call back in to make appointment or make it when she comes in on Thursday, but she wants time to think about it. She states she knows when her BS is going high she will get dizzy and feel funny, so she will go lay down or be still. Then she is getting the nausea in the morning. She states she take her Lantus in the morning and not at night. She didn't know if this could be causing this. Annmarie Canada RN Allergies As of Date: 03/18/2025 Noted Allergy Reaction ASA (SALICYLATES) 01/05/2006 4 - Hives 8 - GI Upset Comments: As a child GLUTEN 10/17/2016 5 - Intolerance METFORMIN 8 - GI Upset 9 - Itching PREDNISONE 10/02/2012 9 - Itching SULFA (SULFONAMIDE ANTIBIOTICS) 12/29/2005 2 - Rash Date Reviewed: 02/17/2025 Reviewed by: Sahara Mejia LPN - Fully Assessed Reason for Visit: Patient Update [1234] Visit Diagnosis:Uncontrolle d type 2 diabetes mellitus with hyperglycemia (HCC) [E11.65] Order(s):ondansetron orally disintegrating (ZOFRAN ODT) 4 mg disintegrating tabletTake 1 tablet by mouth every 8 hours as needed for nausea/vomiting.Disp: 20 tabletRfl: 0 Prescriptions as of 03/20/2025 - ondansetron orally disintegrating (ZOFRAN ODT) 4 mg disintegrating tablet Take 1 tablet by mouth every 8 hours as needed for nausea/vomiting. - atorvastatin (LIPITOR) 40 mg tablet Take 1 tablet by mouth once daily. - glimepiride (AMARYL) 2 mg tablet Take 1 tablet by mouth two times a day with meals. - pantoprazole DR (PROTONIX) 40 mg tablet Take 1 tablet by mouth once daily. - dulaglutide (TRULICITY) 1.5 mg/0.5 mL pen injector Inject 1.5 mg subcutaneously one time a week. - ARMOUR THYROID 120 mg tablet Take 1 tablet PO daily in AM - ergocalciferol 50,000 unit capsule (VITAMIN D2, DRISDOL) Take 1 capsule by mouth two times a week. - clopidogrel (PLAVIX) 75 mg tablet Take 1 tablet by mouth once daily. - carvedilol (COREG) 6.25 mg tablet Take 1 tablet by mouth two times a day with meals. - ARMOUR THYROID 30 mg tablet (more content not included)... [facility] LEIDY BLANCO ([id number]) 1955 F Date Time Provider Department 03/16/25 PREET FARRAR [facility] During your visit today, we recorded the following information about you: Yesi Kitchen, RN 03/16/2025 2:24 PM Signed Pt calling in and states that she has not been feeling well and just woke up. She thinks she did not take her insulin this morning and is wondering if she should take it now. Per pt's med list, she is only on Lantus insulin and directions say to take at night. Pt states she takes her insulin in the morning and always has. States Dr. Farrar is aware and told her that was fine. Pt states she takes when she takes all of her medications. Pt states she did take her oral medications but states she doesn't remember giving herself her shot and also when she is done, she puts her needles in a water bottle. States her needle is still on the syringe. She took her blood sugar and it is 231. Pt states she isn't eating much. She is going to eat some soup. Pt is wondering if she can just hold off and take her insulin shot tomorrow morning? Liliana Bennett APRN.[facility] 03/16/2025 2:56 PM Signed If patient doesn't recall if she took the insulin or not, she should not take it and wait until tomorrow. Better for her to be high than to bottom out. Thank you Sofia Rodriguez MA 03/16/2025 3:48 PM Signed Left message to return call LANDEN Rodríguez Linda M, LPN 03/17/2025 9:22 AM Signed Spoke with pt she states did not take it that day at all in case . She states she has been sick for past 2 days with nausea and vomited once and diarrhea. Told her plenty of fluids and rest if no better when gets up tomorrow call in office open till noon. Allergies As of Date: 03/16/2025 Noted Allergy Reaction ASA (SALICYLATES) 01/05/2006 4 - Hives 8 - GI Upset Comments: As a child GLUTEN 10/17/2016 5 - Intolerance METFORMIN 8 - GI Upset 9 - Itching PREDNISONE 10/02/2012 9 - Itching SULFA (SULFONAMIDE ANTIBIOTICS) 12/29/2005 2 - Rash Date Reviewed: 02/17/2025 Reviewed by: Sahara Mejia LPN - Fully Assessed Reason for Visit: Patient Question [4397] Cmt: re: insulin Visit Diagnosis:Ischemic stroke without residual deficits (HCC) [I63.9] Order(s):atorvastatin (LIPITOR) 40 mg tabletTake 1 tablet by mouth once daily.Disp: 90 tabletRfl: 0 Prescriptions as of 03/17/2025 - atorvastatin (LIPITOR) 40 mg tablet Take 1 tablet by mouth once daily. - glimepiride (AMARYL) 2 mg tablet Take 1 tablet by mouth two times a day with meals. - pantoprazole DR (PROTONIX) 40 mg tablet Take 1 tablet by mouth once daily. - dulaglutide (TRULICITY) 1.5 mg/0.5 mL pen injector Inject 1.5 mg subcutaneously one time a week. - ARMOUR THYROID 120 mg tablet Take 1 tablet PO daily in AM - ergocalciferol 50,000 unit capsule (VITAMIN D2, DRISDOL) Take 1 capsule by mouth two times a week. - clopidogrel (PLAVIX) 75 mg tablet Take 1 tablet by mouth once daily. - carvedilol (COREG) 6.25 mg tablet Take 1 tablet by mouth two times a day with meals. - ARMOUR THYROID 30 mg tablet Take 1 tablet by mouth every Thursday, Thursday, and Thursday. In the morning. (Take this is addition to the 120 mg armor thyroid) - insulin glargine (LANTUS SOLOSTAR U-100 INSULIN) 100 unit/mL (3 mL) Inject 20 Units subcutaneously daily at bedtime. - blood sugar diagnostic (ONETOUCH VERIO TEST STRIPS) test strip Test blood sugar(s) 4 times daily. Dx: Type 2 DM - Uncontrolled E11.65 Insulin: Yes - Insulin [place], Disposable, (BD ULTRA-FINE MARIA T PEN NEEDLE) 32 gauge x 532 Use one needle for each dose. 1/day. - blood sugar diagnostic (BLOOD GLUCOSE TEST) test strip Test blood sugar(s) 2 times daily. Dx: Type 2 DM - Uncontrolled E11.65 Insulin: No - spironolactone (ALDACTONE) 25 mg tablet Take 25 mg by mouth once daily. - blood sugar diagnostic (FREESTYLE LITE STRIPS) test strip Test blood sugar(s) 8 times daily. Dx: E11.65. Insulin: No - ELDERBERRY FRUIT ORAL Take 1,000 mg by mouth once daily. - Blood Pressure Monitor (BLOOD PRESSURE KIT) 1 Each as directed. Dx: essential hypertension - Lancets lancets Test blood sugar(s) 2 times daily. Dx: Type 2 DM - Uncontrolled E11.65 Insulin: No Problem List As Of Date 03/16/2025 Noted Resolved Diabetes mellitus type 2, controlled, [...] without com*10/12/2018 12/08/2022 Situational anxiety [F41.8] 10/12/2018 (more content not included)... Normal [facility] CNOVon 02-17-2025 CNOV Office Visit (FAMPWS ) LEIDY BLANCO ([id number]) 1955 F Date Time Provider Department 02/17/25 3:40 PM PREET FARRAR FAMPWS During your visit today, we recorded the following information about you: Temperature Pulse Respiration Blood pressure 97.3 degrees 76/minute 16/minute 146/80 Weight 85.3 kg Preet Farrar, 02/18/2025 11:49 AM Signed Patient presents with: F/U 3 Month HPI: Leidy Blanco is a 69 year old female who presents to the office today for review of health conditions. Concerns today: She was seen by Crime Laboratory Analyst Dr. Isaac and states that she didn't like her care at her office. Would like PCP to help with management of her glucose- she is tolerating the Trulicity well without any SE- only had SE with the high doses of Ozempic at 2 mg a week - tolerated the 1 mg/week dosing well without any SE to medication. Ms. Blanco has past history of diabetes. Since our last visit she denies excessive thirst or increased frequency of urination, chest pain or dyspnea , new or unusual visual symptoms, and low sugar/hypoglycemic reactions. Depression- no. Follows a diabetic diet most of the time. She is compliant with medication(s) and is tolerating med(s) without any side effects. She reports checking her glucose on a twice a day schedule with sugars in the <200 range. Patient's last HgA1C was Hemoglobin A1C (%) Date Value 10/05/2024 7.3 05/17/2024 6.9 11/13/2021 6.3 04/16/2021 6.3 Hemoglobin A1C (POCT) (%) Date Value 01/06/2024 6.5 ) Last Ophthalmology exam was within the past 12 months Ms. Blanco reports history of hyperlipidemia. Current therapy includes atorvastatin (Lipitor) 80 mg. Denies side effects of muscle weakness or achiness. Her most recent lipid panels are reviewed. Cholesterol, Total (mg/dL) Date Value 10/05/2024 122 04/16/2021 193 HDL Cholesterol (mg/dL) Date Value 10/05/2024 65 04/16/2021 58 LDL Cholesterol, Calculated (mg/dL) Date Value 10/05/2024 36 04/16/2021 91 Triglyceride (mg/dL) Date Value 10/05/2024 105 04/16/2021 222 Ms. Blanco indicates a history of hypertension and states that she is feeling well and denies any symptoms referable to elevated blood pressure. Specifically denies headache, chest pain, palpitations, dyspnea, and peripheral edema. Patient denies any side effects of her medication(s) and is compliant with their regimen. Last 3 Encounter BP Readings: Date: BP: 02/17/2025 146/80 02/09/2025 122/78 12/14/2024 136/70 She watches her diet for sodium, low fat and low cholesterol some of the time. She does not check BP's generally. Leidy gets minimal exercise. PAST MEDICAL HISTORY Diagnosis Date Aortic stenosis, moderate 08/2019 Benign hypertensive heart disease Celiac disease (HCC) Diabetes mellitus without mention of complication Diabetes mellitus Fatty liver Grave's disease IBS (irritable bowel syndrome) Medical marijuana use has card Ulcerative colitis, unspecified Vitamin D deficiency PAST SURGICAL HISTORY Procedure Laterality Date COLONOSCOPY FLX DX W/COLLJ SPEC WHEN PFRMD 09/09/2013 Colonoscopy ESOPHAGOGASTRODUODENO SCOPY TRANSORAL DIAGNOSTIC 09/09/2013 EGD INFUSE RADIOACTIVE MATERIALS [...] date: 11/02/2002 Quit date: 11/02/2022 Years since quittin.2 Smokeless tobacco: Never Substance Use Topics Alcohol [...] Itching Sulfa (Sulfonamide * Rash Current Meds: glimepiride (AMARYL) 2 mg tablet Take 1 tablet by mouth two times a day with meals. pantoprazole DR (PROTONIX) 40 mg tablet Take 1 tablet by mouth once daily. dulaglutide (TRULICITY) 1.5 mg/0.5 mL pen injector Inject 1.5 mg subcutaneously one time a week. ARMOUR THYROID 120 mg tablet Take 1 tablet PO daily in AM ergocalciferol 50,000 unit capsule (VITAMIN D2, DRISDOL) Take 1 capsule by mouth two times a week. clopidogrel (PLAVIX) 75 mg tablet Take 1 tablet by mouth once daily. atorvastatin (LIPITOR) 80 mg tablet Take 1 tablet by mouth once daily. (Patient taking differently: Take (more content not included)... Normal [facility] CTA Abdomen W/WO Contraston 02-16-2025 CTA Abdomen W/WO Contrast Normal [facility] CNNURSEon 02-14-2025 CNNURSE Nurse Visit (ENDIMT) LEIDY BLANCO ([id number]) 1955 F Date Time Provider Department 02/14/25 1:00 PM RODRIGO HOLGUIN During your visit today, we recorded the following information about you: Rodrigo Holguin RN 02/14/2025 1:17 PM Signed DIABETES CARE AND EDUCATION VISIT Location: [place] Type of visit: In person individual PATIENT'S MAIN CONCERN TODAY: Not sure if she's eating correct. Support person present for education today: none Cognitive ability: Alert and oriented Motivation to learn: Interested Learning barriers identified by educator: none Method of instruction: written, verbal, and demonstration DIABETES FINDINGS: Sister and father are type1 DM, patient's blood sugars have been becoming more variable over time. Has hx of other autoimmune disorders. Monitoring: Using Verio - reports 274 mg/dL following 160 mg/dL this morning, She's concerned that she's running so high. Meal Planning: Celiac and clean eating - 3-4 eggs per day breakfast, protein shake for lunch and low carb high protein for dinner - small snack is always protein forward - less than 20g per meal on average per report Medications: Trulicity, glimepiride and Glargine Physical Activity: 30 minutes of treadmill HANDOUTS: Healthy You: Survival Skills and Healthy You: Planning Healthy Meals LEARNING RESPONSE: Healthy eating: Demonstrated understanding/compete ncy today or at previous visit Being active: Demonstrated understanding/compete ncy today or at previous visit Taking medications: Demonstrated understanding/compete ncy today or at previous visit POSSIBLE FUTURE TOPICS: 1. DIABETES CARE AND EDUCATION PLAN: Education completed and annual diabetes education follow-up visit recommended Time Spent (Minutes): 30 This visit note will be communicated to the healthcare provider via access to shared medical record. SIGNATURE: Rodrigo Holguin RN PATIENT NAME: Leidy Blanco DATE: February 14, 2025 TIME: 12:48 PM Referring Provider: BEAN ISAAC [[id number]] Allergies As of Date: 02/14/2025 Noted Allergy Reaction ASA (SALICYLATES) 01/05/2006 4 - Hives 8 - GI Upset Comments: As a child GLUTEN 10/17/2016 5 - Intolerance METFORMIN 8 - GI Upset 9 - Itching PREDNISONE 10/02/2012 9 - Itching SULFA (SULFONAMIDE ANTIBIOTICS) 12/29/2005 2 - Rash Date Reviewed: 02/09/2025 Reviewed by: Sofia Rodriguez MA - Fully Assessed Visit Diagnosis:Type 2 diabetes mellitus with other circulatory complication, with long-term current use of insulin (HCC) [E11.59, Z79.4] Order(s):CONSULT TO DIABETES EDUCATION DSME [[id number]] Order #: [id number]: 2 Prescriptions as of 02/14/2025 - ARMOUR THYROID 120 mg tablet Take 1 tablet PO daily in AM - ergocalciferol 50,000 unit capsule (VITAMIN D2, DRISDOL) Take 1 capsule by mouth two times a week. - dulaglutide (TRULICITY) 0.75 mg/0.5 mL pen injector Inject 0.75 mg subcutaneously one time a week. - clopidogrel (PLAVIX) 75 mg tablet Take 1 tablet by mouth once daily. - atorvastatin (LIPITOR) 80 mg tablet Take 1 tablet by mouth once daily. - carvedilol (COREG) 6.25 mg tablet Take 1 tablet by mouth two times a day with meals. - losartan (COZAAR) 25 mg tablet Take 1 tablet by mouth every afternoon. - ARMOUR THYROID 30 mg tablet Take 1 tablet by mouth every Thursday, Thursday, and Thursday. In the morning. (Take this is addition to the 120 mg armor thyroid) - insulin glargine (LANTUS SOLOSTAR U-100 INSULIN) 100 unit/mL (3 mL) Inject 20 Units subcutaneously daily at bedtime. - glimepiride (AMARYL) 2 mg tablet Take 1 tablet by mouth two times a day with meals. - pantoprazole DR (PROTONIX) 40 mg tablet Take 1 tablet by mouth once daily. - blood sugar diagnostic (ONETOUCH VERIO TEST STRIPS) test strip Test blood sugar(s) 4 times daily. Dx: Type 2 DM - Uncontrolled E11.65 Insulin: Yes - dexAMETHasone (DECADRON) 1 mg tablet Take the tablet at 11 pm and go for labs the next morning on fasting at 8 am - Insulin [place], Disposable, (BD ULTRA-FINE MARIA T PEN NEEDLE) 32 gauge x 5/32 Use one needle for each dose. 1/day. - blood sugar diagnostic (BLOOD GLUCOSE TEST) [...] PRESSURE KIT) 1 Each as directed. Dx: es (more content not included)... Normal [facility] CNOVon 02-09-2025 CNOV Office Visit (ENWSTR ) LEIDY BLANCO ([id number]) 1955 F Date Time Provider Department 02/09/25 10:00 AM BEAN ISAAC ENWSTR During your visit today, we recorded the following information about you: Pulse Blood pressure Weight 84/minute 122/78 85.2 kg Bean Isaac MD 02/09/2025 7:08 PM Signed [facility] Follow up note Referred by: PCP- Preet Farrar DO History of Present illness: Leidy March Francis is a 69 year old female here today for evaluation of Type 2 DM, she also has a PMH of HTN, HLD, CVA, Obesity class I, Hypothyroidism, Celiac disease. She reports of a recent back surgery ending up in paralysis biut now she is walking and back onto exercise -Initially diagnosed: 16 years ago. On regular blood work -Length of time on oral medications before switching to insulin: 13 years, until Ozempic, 15 years until lantus -Duration of insulin use: few months now Complications: Cardiovascular -- Yes HTN, HLD, in 2021 she had a Stroke Statin Use -- Yes, atorvastatin 80 mg daily Retinopathy -- No Last JUAN/Retina Eval: 03/2024 Nephropathy -- Yes NICOLE/ARB Use -- Yes [...] past . Diabetes Medications -Current regimen: lantus 20 units daily in the morning, glimepiride 2 mg daily Started on Trulicity by her PCP on 12/31/24, Dr. Farrar with discontinuation of Januvia. -Misses doses: None -Adverse medication effects: no -Rotating injection sites: yes -Previously Used DM Meds: Yes Metformin - GI upset Jardiance- Yeast infection She was on Ozempic 1 mg for more than 1 year, when it was increased to 2 mg she was hospitalized due to vomiting, diarrhea and was diagnosed with Gastroparesis assumed to be due to the medication . Blood sugars -Self monitoring of blood sugar via fingerstick: 4 x daily Insurance did not approve CGM. She brought glucometer -Brought blood glucose log for review: yes January 26, 2025-February 07, 2025 Avg B mg/dl, readings per day: 4 Highest 334 mg/dl, lowest 133 mg/dl 30% in range -BG log reviewed: --Fastin-230s --Prelunch: 125-250 --Predinner: 125-215 --Bedtime: 155-300s Hypoglycemia -Hypoglycemic episodes: denied any lows -Frequency and timing of hypoglycemia: n/a -Hypoglycemia awareness: n/a Concerns today: 02/09/25 She is worried about weight gain, asks me why she is not losing weight with Trulicity - Consumes snacks at bedtime to get through the night, even when blood glucose levels are elevated. - she admits to eating high carb diet during . - Expresses confusion about diabetes management and the effects of current medications - she reports to eating high protein no carb meal in the past which messed up her diabetes control. She is however continuing with low carb diet to help sugars - She denied any hyperglycemic symptoms today. - 24 hr urine cortisol done due to worsening blood sugars and was normal She has a hx of smoking that she quit but she is concerned of weight gain despite not eating much carbs . Lifestyle -Exercise: 30 mins on tread mill daily -Diet: Breakfast: 3 eggs, 1 slice of gluten free bread Lunch: yogurt with 3 gms of carbs, either cheese or chicken sausage, half orange or small cup of fruit Dinner: salmon, chicken strips with 3 gms of carbs, broccoli or brussels sprouts . Blood pressure -Today BP 122/78 -Current antihypertensive therapy: carvedilol 6.25 mg BID, [...] CARDIOVASCULAR: Chest pain, palpitations, irregular heart beats GASTRO-INTESTINAL:Den ies Nausea, vomiting, abdominal pain, hyperdefecation, rectal bleeding NEUROLOGICAL: Denies dizziness, lightheadedness, weakness, cramping, numbness/tingling of extremities MUSCULOSKELETAL: Denies joint pain, stiffness, swelling, cramping or weakness. GENITOURINARY: Denies polyuria, recurrent UTI/yeast infections SKIN: Denies dryness, brittle nails, hair loss, alopecia, excessiv (more content not included)... Normal [facility] Ordered by an unspecified provider. [facility] Ordered by an unspecified provider. [facility] Lna Office Visit Reporton 02-06-2025 Lna Office Visit Report Normal [facility] Cardiology Visit Reporton Cardiology Visit Report Normal [facility] Lna Office Visit Reporton 01-09-2025 Lna Office Visit Report Normal [facility] LEIDY BLANCO ([id number]) 1955 F Date Time Provider Department 12/29/24 PREET FARRAR During your visit today, we recorded the following information about you: Chelo Prasad, OLVIN 12/29/2024 9:54 AM Signed Patient calling to clarify if she should stop her Januvia medication when starting her Trulicity? Per 12/14 OV, pt was originally going to start Victoza and was to stop her Januvia when she began the Victoza. The Victoza was not covered for her, so provider ordered her Trulicity instead. Pt plans to start the Trulicity soon, but wanted to clarify that she should NOT take the Januvia when starting her Trulicity. Please call patient with reply. OLVIN Mujica Barbara, RN 01/02/2025 9:10 AM Signed Please see triage note as pt called in on Thursday the with elevated blood sugars. Dr. Farrar was out of the office last week. Pt has been seeing Dr. Isaac for her diabetes with last visit 11/11/24 and next visit 02/09/25. Triage note was sent to Dr. Isaac on Thursday. Dr. Isaac messaged this nurse and stated the call had been handled through [employer] chat. No notes in triage with what was done. Will follow up with Dr. Isaac and her office. Will also forward this msg to her as well. Pushpa Falcon RN 01/02/2025 1:30 PM Signed To my knowledge and from reviewing Pt's chart, this encounter/triage note has not been handled thus far. I am unable to see any documentation that Pt's concerns have been addressed. Dr. Isaac is out of the office today, 01/02/2025. Her expected return is 01/03/2025. Pushpa Falcon RN January 02, 2025 1:29 PM Preet Farrar DO 01/02/2025 3:36 PM Signed Please have her hold the Januvia when starting the Trulicity DO Prabhjot Urban Susan LPN 01/02/2025 4:43 PM Signed Pt. informed. Yesi Kitchen RN 01/02/2025 4:52 PM Signed Routing note to Dr. Isaac for review as well-please see triage encounter from 12/30/24. Madie Bruce MA 01/03/2025 12:25 PM Signed Phoned patient as requested by provider. Discussed trulicity and the effects of surgery on her blood sugar. Patient reports understanding. Patient will continue medication as directed. Patient agrees to change her follow up appointment to earlier if she has more questions. Madie Bruce MA Allergies As of Date: 12/29/2024 Noted Allergy Reaction ASA (SALICYLATES) 01/05/2006 4 - Hives 8 - GI Upset Comments: As a child GLUTEN 10/17/2016 5 - Intolerance METFORMIN 8 - GI Upset 9 - Itching PREDNISONE 10/02/2012 9 - Itching SULFA (SULFONAMIDE ANTIBIOTICS) 12/29/2005 2 - Rash Date Reviewed: 11/11/2024 Reviewed by: Madie Bruce MA - Fully Assessed Reason for Visit: Patient Question [7147] Prescriptions as of 01/03/2025 - dulaglutide (TRULICITY) 0.75 mg/0.5 mL pen injector Inject 0.75 mg subcutaneously one time a week. - clopidogrel (PLAVIX) 75 mg tablet Take 1 tablet by mouth once daily. - atorvastatin (LIPITOR) 80 mg tablet Take 1 tablet by mouth once daily. - carvedilol (COREG) 6.25 mg tablet Take 1 tablet by mouth two times a day with meals. - losartan (COZAAR) 25 mg tablet Take 1 tablet by mouth every afternoon. - ARMOUR THYROID 30 mg tablet Take 1 tablet by mouth every Thursday, Thursday, and Thursday. In the morning. (Take this is addition to the 120 mg armor thyroid) - insulin glargine (LANTUS SOLOSTAR U-100 INSULIN) 100 unit/mL (3 mL) Inject 20 Units subcutaneously daily at bedtime. - glimepiride (AMARYL) 2 mg tablet Take 1 tablet by mouth two times a day with meals. - pantoprazole DR (PROTONIX) 40 mg tablet Take 1 tablet by mouth once daily. - ARMOUR THYROID 120 mg tablet Take 1 tablet PO daily in AM - blood sugar diagnostic (ONETOUCH VERIO TEST STRIPS) test strip Test blood sugar(s) 4 times daily. Dx: Type 2 DM - Uncontrolled .65 Insulin: Yes - dexAMETHasone (DECADRON) 1 mg tablet Take the tablet at 11 pm and go for labs the next morning on fasting at 8 am - Insulin [place], Disposable, (BD ULTRA-FINE MARIA T PEN NEEDLE) 32 gauge x 5/32 Use one needle for each dose. 1/day. - ergocalciferol 50,000 unit capsule (VITAMIN D2, DRISDOL) Take 1 capsule by mouth two times a week. - blood sugar diagnostic (BLOOD GLUCOSE TEST) test strip Test blood sugar(s) 2 times daily. Dx: Type 2 DM - Uncontrolled .65 Insulin: No - spironolactone (ALDACTONE) 25 mg [...] mg disintegrating tablet Take 1 tablet by vaibhav (more content not included)... Normal [facility] Anion gap in Serum or Plasma Ordered By: Anushka Hall on 12-28-2024 Anion gap [Moles/Vol] 13 mmol/L 5-15 [facility] BUN/creatinine ratioOrdered By: Anushka Hall on 12-28-2024 Urea nitrogen/Creatinine [Mass ratio] 25.4 mg/mg High 10- [facility] Basic Metabolic Profile (BMP )on 12-28-2024 BUN/CRE 25.4 RATIO High - [facility] Comment on above: Performed By: #### L 100.0500, L500.2500 ####[facility] [address] [place], [address] Calcium [Mass/Vol] 9.0 mg/dL Normal 7.6-11.0 [facility] Comment on above: Performed By: #### L 100.0500, L500.2500 ####[facility] [address] [place], [address] Chloride [Moles/Vol] 95 mmol/L Low 98-108 [facility] Comment on above: Performed By: #### L 100.0500, L500.2500 ####[facility] [address] [place], [address] CO2 [Moles/Vol] 24.0 mmol/L Normal 21.0-32.0 [facility] Comment on above: Performed By: #### L 100.0500, L500.2500 ####[facility] [address] [place], [address] Creatinine [Mass/Vol] 0.62 mg/dL Low 0.70-1.20 [facility] Comment on above: Performed By: #### L 100.0500, L500.2500 ####[facility] [address] [place], [address] ECRCL 64.10 ml/min Normal 50-250 [facility] Comment on above: Performed By: #### L 100.0500, L500.2500 ####[facility] [address] [place], [address] GAP 13 Normal 5-15 [facility] Comment on above: Performed By: #### L 100.0500, L500.2500 ####[facility] [address] [place], [address] GFR/1.73 sq M.predicted among non-blacks MDRD (S/P/Bld) [Vol rate/Area] 97 mL/min/{1.73_m2} Normal >60 [facility] Comment on above: Result Comment: mL/m in/1.73m2 CKD-EPI Creatinine Equation (2020) Performed By: #### L 100.0500, L500.2500 ####[facility] [address] [place], [address] Glucose [Mass/Vol] 170 mg/dL High 70-99 [facility] Comment on above: Performed By: #### L 100.0500, L500.2500 ####[facility] [address] [place], [address] Potassium [Moles/Vol] 3.8 mmol/L Normal 3.3-5.1 [facility] Comment on above: Performed By: #### L 100.0500, L500.2500 ####[facility] [address] [place], [address] Sodium [Moles/Vol] 132 mmol/L Low 133-145 [facility] Comment on above: Performed By: #### L 100.0500, L500.2500 ####[facility] [address] [place], [address] Urea nitrogen [Mass/Vol] 16 mg/dL Normal 4-19 [facility] Comment on above: Performed By: #### L 100.0500, L500.2500 ####[facility] [address] [place], [address] Bedside Glucoseon 12-28-2024 FINGERSTICK GLU 181 mg/dL High 74-106 [facility] Comment on above: Result Comment: CARIN GEMENT OF PATIENT CARE PER NURSING PROTOCOL Performed By: #### L 501.080 ####[facility] [address] [place], [address] FINGERSTICK GLU 183 mg/dL High 74-106 [facility] Comment on above: Result Comment: CARIN GEMENT OF PATIENT CARE PER NURSING PROTOCOL Performed By: #### L 501.080 ####[facility] [address] [place], [address] CBC-Complete Blood Cnt No Di ffon 12-28-2024 Erythrocyte distribution width (RBC) [Ratio] 13.2 % Normal 11.6-14.6 [facility] Comment on above: Performed By: #### L 100.0500, L500.2500 ####[facility] [address] [place], [address] Hematocrit (Bld) [Volume fraction] 38.7 % Normal 37-47 [facility] Comment on above: Performed By: #### L 100.0500, L500.2500 ####[facility] [address] [place], [address] Hemoglobin (Bld) [Mass/Vol] 13.4 g/dL Normal 12.0-15.0 [facility] Comment on above: Performed By: #### L 100.0500, L500.2500 ####[facility] [address] [place], [address] MCH (RBC) [Entitic mass] 30.0 pg Normal 27.0-32.0 [facility] Comment on above: Performed By: #### L 100.0500, L500.2500 ####[facility] [address] [place], [address] MCHC (RBC) [Mass/Vol] 34.6 g/dL Normal 32-36 [facility] Comment on above: Performed By: #### L 100.0500, L500.2500 ####[facility] [address] [place], [address] MCV (RBC) [Entitic vol] 86.8 fL Normal 81-99 [facility] Comment on above: Performed By: #### L 100.0500, L500.2500 ####[facility] [address] [place], [address] Platelet mean volume (Bld) [Entitic vol] 9.8 fL Normal 6.2-12.0 [facility] Comment on above: Performed By: #### L 100.0500, L500.2500 ####[facility] [address] [place], [address] Platelets (Bld) [#/Vol] 332 10*3/uL Normal 150-450 [facility] Comment on above: Performed By: #### L 100.0500, L500.2500 ####[facility] [address] [place], [address] RBC (Bld) [#/Vol] 4.46 10*6/uL Normal 4.2-5.4 [facility] Comment on above: Performed By: #### L 100.0500, L500.2500 ####[facility] [address] [place], [address] RDW SD 41.9 fl Normal 35.1-43.9 [facility] Comment on above: Performed By: #### L 100.0500, L500.2500 ####[facility] [address] [place], [address] WBC (Bld) [#/Vol] 16.8 10*3/uL High 4.4-11.0 [facility] Comment on above: Performed By: #### L 100.0500, L500.2500 ####[facility] [address] [place], [address] Carbon dioxide, total [Moles /volume] in Central venous bloodOrdered By: Anushka Hall on 12-28-2024 CO2 [Moles/Vol] 24.0 mmol/L 21.0-32.0 [facility] Chloride assayOrdered By: Ton Hall on 12-28-2024 Chloride [Moles/Vol] 95 mmol/L Low 98-108 [facility] Erythrocyte distribution wid th (RBC) [Ratio]Ordered By: Anushka Hall on 12-28-2024 Erythrocyte distribution width (RBC) [Entitic vol] 41.9 fL 35.1-43.9 [facility] Erythrocyte distribution wid th ratioOrdered By: Anushka Hall on 12-28-2024 Erythrocyte distribution width (RBC) [Ratio] 13.2 % 11.6-14.6 [facility] Erythrocyte distribution wid th standard deviationOrdered By: Anushka Hall on 12-28-2024 Erythrocyte distribution width (RBC) [Ratio] 41.9 fl 35.1-43.9 [facility] Estimation of creatinine siddhartha aranceOrdered By: Anushka Hall on 12-28-2024 Estimated Creatinine Clearance Calc 64.10 ml/min 50-250 [facility] GFR/1.73 sq M.predicted abdulaziz g non-blacks MDRD (S/P/Bld) [Vol rate/Area]Ordered By: Anushka Hall on 12-28-2024 Estimated GFR (MDRD) Non-Af Amer 97 >60 [facility] Comment on above: mL/min/1.73m2 CKD-EP I Creatinine Equation (2020) Glomerular filtration rate ( GFR) estimation/1.73 sq m using serum, plasma, or whole bOrdered By: Anushka Hall on 12-28-2024 GFR/1.73 sq M.predicted among non-blacks MDRD (S/P/Bld) [Vol rate/Area] 97 mL/min/{1.73_m2} >60 [facility] Comment on above: mL/min/1.73m2 CKD-EP I Creatinine Equation (2020) [facility] deOrdered By: Anushka Hall on 12-28-2024 Bedside Glucose (Misc Panel) 181 mg/dL [facility] 74-106 [facility] Comment on above: MANAGEMENT OF PATIEN T CARE PER NURSING PROTOCOL Glucose [Mass/Vol] 181 mg/dL High 74-106 [facility] Comment on above: MANAGEMENT OF PATIEN T CARE PER NURSING PROTOCOL Hematocrit Auto (Bld) [Volum e fraction]Ordered By: Anushka Hall on 12-28-2024 Hematocrit (Bld) [Volume fraction] 38.7 % 37-47 [facility] Hemoglobin measurementOrdere d By: Anushka Hall on 12-28-2024 Hemoglobin (Bld) [Mass/Vol] 13.4 g/dL 12.0-15.0 [facility] MCV (mean corpuscular volume ) determinationOrdered By: Anushka Hall on 12-28-2024 MCV (RBC) [Entitic vol] 86.8 fL 81-99 [facility] Mean corpuscular hemoglobin (MCH) determinationOrdered By: Anushka Hall on 12-28-2024 MCH (RBC) [Entitic mass] 30.0 pg 27.0-32.0 [facility] Mean corpuscular hemoglobin concentration (MCHC) determinationOrdered By: Anushka Hall on 12-28-2024 MCHC (RBC) [Mass/Vol] 34.6 g/dL 32-36 [facility] Mean platelet volume determi nationOrdered By: Anushka Hall on 12-28-2024 Platelet mean volume (Bld) [Entitic vol] 9.8 fL 6.2-12.0 [facility] Platelet countOrdered By: Ton Hall on 12-28-2024 Platelets (Bld) [#/Vol] 332 10*3/uL 150-450 [facility] Potassium (Unsp spec) [Mass/ Vol]Ordered By: Anushka Hall on 12-28-2024 Potassium [Moles/Vol] 3.8 mmol/L 3.3-5.1 [facility] Potassium measurement (mass/ volume)Ordered By: Anushka Hall on 12-28-2024 Potassium (Unsp spec) [Mass/Vol] 3.8 mmol/L 3.3-5.1 [facility] RBC Auto (Bld) [#/Vol]Ordere d By: Anushka Hall on 12-28-2024 RBC (Bld) [#/Vol] 4.46 10*6/uL 4.2-5.4 [facility] Serum creatinine measurement (mass/volume)Ordered By: Anushka Hall on 12-28-2024 Creatinine [Mass/Vol] 0.62 mg/dL Low 0.70-1.20 [facility] Serum glucose measurement (m ass/volume)Ordered By: Anushka Hall on 12-28-2024 Glucose [Mass/Vol] 170 mg/dL High 70-99 [facility] Serum or plasma calcium mulugeta urement (mass/volume)Ordered By: Anushka Hall on 12-28-2024 Calcium [Mass/Vol] 9.0 mg/dL 7.6-11.0 [facility] Serum or plasma urea nitroge n measurement (mass/volume)Ordered By: Anushka Hall on 12-28-2024 Urea nitrogen [Mass/Vol] 16 mg/dL 4-19 [facility] Sodium levelOrdered By: Elvis Hall on 12-28-2024 Sodium [Moles/Vol] 132 mmol/L Low 133-145 [facility] White blood cell (WBC) count Ordered By: Anushka Hall on 12-28-2024 WBC (Bld) [#/Vol] 16.8 10*3/uL High 4.4-11.0 [facility] Bedside Glucoseon 12-27-2024 FINGERSTICK GLU 231 mg/dL High 74-106 [facility] Comment on above: Result Comment: CARIN GEMENT OF PATIENT CARE PER NURSING PROTOCOL Performed By: #### L 501.080 ####[facility] [address] [facility] [address] FINGERSTICK GLU 299 mg/dL High [address] [place] [address] Comment on above: Result Comment: CARIN GEMENT OF PATIENT CARE PER NURSING PROTOCOL Performed By: #### L 501.080 ####[facility] [address] [place], [address] FINGERSTICK GLU 305 mg/dL High [address] [place] [address] Comment on above: Result Comment: CARIN GEMENT OF PATIENT CARE PER NURSING PROTOCOL Performed By: #### L 501.080 ####[facility] [address] [place], [address] FINGERSTICK GLU 243 mg/dL High [address] [place] [address] Comment on above: Result Comment: CARIN GEMENT OF PATIENT CARE PER NURSING PROTOCOL Performed By: #### L 501.080 ####[facility] [address] [place], [address] FINGERSTICK GLU 222 mg/dL High [facility]106 [facility] Comment on above: Result Comment: CARIN GEMENT OF PATIENT CARE PER NURSING PROTOCOL Performed By: #### L 501.080 ####[facility] [address] [place], [address] CBC-Complete Blood Cnt No Mitzy velázquezon 12-27-2024 Erythrocyte distribution width (RBC) [Ratio] 13.2 % Normal 11.6-14.6 [facility] Comment on above: Performed By: #### L 100.0500 ####[facility] [address] [place], [address] Hematocrit (Bld) [Volume fraction] 39.2 % Normal 37-47 [facility] Comment on above: Performed By: #### L 100.0500 ####[facility] [address] [place], [address] Hemoglobin (Bld) [Mass/Vol] 13.4 g/dL Normal 12.0-15.0 [facility] Comment on above: Performed By: #### L 100.0500 ####[facility] [address] [place], [address] MCH (RBC) [Entitic mass] 29.8 pg Normal 27.0-32.0 [facility] Comment on above: Performed By: #### L 100.0500 ####[facility] [address] [place], [address] MCHC (RBC) [Mass/Vol] 34.2 g/dL Normal 32-36 [facility] Comment on above: Performed By: #### L 100.0500 ####[facility] [address] [place], [address] MCV (RBC) [Entitic vol] 87.1 fL Normal 81-99 [facility] Comment on above: Performed By: #### L 100.0500 ####[facility] [address] [place], [address] Platelet mean volume (Bld) [Entitic vol] 9.6 fL Normal 6.2-12.0 [facility] Comment on above: Performed By: #### L 100.0500 ####[facility] [address] [place], [address] Platelets (Bld) [#/Vol] 332 10*3/uL Normal 150-450 [facility] Comment on above: Performed By: #### L 100.0500 ####[facility] [address] [place], [address] RBC (Bld) [#/Vol] 4.50 10*6/uL Normal 4.2-5.4 [facility] Comment on above: Performed By: #### L 100.0500 ####[facility] [address] [place], [address] RDW SD 41.4 fl Normal 35.1-43.9 [facility] Comment on above: Performed By: #### L 100.0500 ####[facility] [address] [place], [address] WBC (Bld) [#/Vol] 15.7 10*3/uL High 4.4-11.0 [facility] Comment on above: Performed By: #### L 100.0500 ####[facility] [address] [place], [address] Discharge Instructionon 04-0 Discharge Instruction Normal [facility] MR/POSTOP.ANEon 12-27-2024 MR/POSTOP.ANE Normal [facility] MR/FFRRQGRW1vy 12-27-2024 MR/POSTOPAN2 Normal [facility] Operative Reporton Operative Report Normal [facility] Surgery Specimen Level Von 0 12-27-2024 Surgery Specimen Level V Normal [facility] Comment on above: Performed By: #### P SUV ####[facility] [address] [place], [address] CNPNon 12-21-[address] [facility] Telephone (FAMPWS) LEIDY BLANCO ([id number]) 1955 F Date Time Provider Department 12/21/24 [facility] FARRAR [facility] During your visit today, we recorded the following information about you: Chelo Prasad RN 12/21/2024 9:38 AM Signed Patient calling in and states she needs a prior authorization for her lantus insulin, as ordered 10/07/24, per [facility]. Prior authorization requested for the following medication: Medication: insulin glargine (lantus solostar) 100 unit/mL Provider: Dr. Farrar Insurance Company Name: [facility] Medicare Pharmacy Name: [facility] Telephone number: [phone] Please call patient once an update has been received. OLVIN Mujica Elizabeth, MA 12/21/2024 10:51 AM Signed No PA needed covered. Called [facility] and spoke to PVPower who did for brand lantus and is covered. Patient was notified Donna Kimble MA Allergies As of Date: 12/21/2024 Noted Allergy Reaction ASA (SALICYLATES) 01/05/2006 4 - Hives 8 - GI Upset Comments: As a child GLUTEN 10/17/2016 5 - Intolerance METFORMIN 8 - GI Upset 9 - Itching PREDNISONE 10/02/2012 9 - Itching SULFA (SULFONAMIDE ANTIBIOTICS) 12/29/2005 2 - Rash Date Reviewed: 11/11/2024 Reviewed by: Madie Bruce MA - Fully Assessed Reason for Visit: Prior Authorization Request [Other] Prescriptions as of 12/21/2024 - dulaglutide (TRULICITY) 0.75 mg/0.5 mL pen injector Inject 0.75 mg subcutaneously one time a week. - clopidogrel (PLAVIX) 75 mg tablet Take 1 tablet by mouth once daily. - atorvastatin (LIPITOR) 80 mg tablet Take 1 tablet by mouth once daily. - carvedilol (COREG) 6.25 mg tablet Take 1 tablet by mouth two times a day with meals. - losartan (COZAAR) 25 mg tablet Take 1 tablet by mouth every afternoon. - ARMOUR THYROID 30 mg tablet Take 1 tablet by mouth every Thursday, Thursday, and Thursday. In the morning. (Take this is addition to the 120 mg armor thyroid) - insulin glargine (LANTUS SOLOSTAR U-100 INSULIN) 100 unit/mL (3 mL) Inject 20 Units subcutaneously daily at bedtime. - glimepiride (AMARYL) 2 mg tablet Take 1 tablet by mouth two times a day with meals. - pantoprazole DR (PROTONIX) 40 mg tablet Take 1 tablet by mouth once daily. - ARMOUR THYROID 120 mg tablet Take 1 tablet PO daily in AM - blood sugar diagnostic (ONETOUCH VERIO TEST STRIPS) test strip Test blood sugar(s) 4 times daily. Dx: Type 2 DM - Uncontrolled E11.65 Insulin: Yes - dexAMETHasone (DECADRON) 1 mg tablet Take the tablet at 11 pm and go for labs the next morning on fasting at 8 am - Insulin [place], Disposable, (BD ULTRA-FINE MARIA T PEN NEEDLE) 32 gauge x Use one needle for each dose. 1/day. - ergocalciferol 50,000 unit capsule (VITAMIN D2, DRISDOL) Take 1 capsule by mouth two times a week. - blood sugar diagnostic (BLOOD [...] Insulin: No Problem List As Of Date 12/21/2024 Noted Resolved Diabetes mellitus type 2, controlled, [...] colitis without complications *12/09/2023 Diabetes mellitus (HCC) [E1 (more content not included)... Normal [facility] 12-19-2024 CNPN Telephone (FAMPWS) LEIDY BLANCO ([id number]) 1955 F Date Time Provider Department 12/19/24 PREET FARRAR During your visit today, we recorded the following information about you: Josie Starks RN 12/19/2024 2:53 PM Signed Patient calls to ask about holding Plavix for upcoming hysterectomy. Patient reports Dr. Hall was leaning towards holding medication for 3 days but wanted patient to check with PCP to verify the length of time provider would recommend that she hold Plavix. Patient requests call back at [phone]. OLVIN Livingston Jordan L, DO 12/19/2024 5:08 PM Signed Okay to hold Plavix for 3-5 days, depending on surgeon preference DO Dread Urban Amanda, RN 12/19/2024 5:58 PM Signed Pt called and is notified of providers message and instructions. Pt voices understanding. She will call OBGYNs office to see how long she wants her to hold it. Annmarie Canada RN Allergies As of Date: 12/19/2024 Noted Allergy Reaction ASA (SALICYLATES) 01/05/2006 4 - Hives 8 - GI Upset Comments: As a child GLUTEN 10/17/2016 5 - Intolerance METFORMIN 8 - GI Upset 9 - Itching PREDNISONE 10/02/2012 9 - Itching SULFA (SULFONAMIDE ANTIBIOTICS) 12/29/2005 2 - Rash Date Reviewed: 11/11/2024 Reviewed by: Madie Bruce MA - Fully Assessed Reason for Visit: Patient Question [7259] Upcoming Surgery [Other] Prescriptions as of 12/19/2024 - dulaglutide (TRULICITY) 0.75 mg/0.5 mL pen injector Inject 0.75 mg subcutaneously one time a week. - clopidogrel (PLAVIX) 75 mg tablet Take 1 tablet by mouth once daily. - atorvastatin (LIPITOR) 80 mg tablet Take 1 tablet by mouth once daily. - carvedilol (COREG) 6.25 mg tablet Take 1 tablet by mouth two times a day with meals. - losartan (COZAAR) 25 mg tablet Take 1 tablet by mouth every afternoon. - ARMMILANA THYROID 30 mg tablet Take 1 tablet by mouth every Thursday, Thursday, and Thursday. In the morning. (Take this is addition to the 120 mg armor thyroid) - insulin glargine (LANTUS SOLOSTAR U-100 INSULIN) 100 unit/mL (3 mL) Inject 20 Units subcutaneously daily at bedtime. - glimepiride (AMARYL) 2 mg tablet Take 1 tablet by mouth two times a day with meals. - pantoprazole DR (PROTONIX) 40 mg tablet Take 1 tablet by mouth once daily. - ARMOUR THYROID 120 mg tablet Take 1 tablet PO daily in AM - blood sugar diagnostic (DataGravityTOUCH VERIO TEST STRIPS) test strip Test blood sugar(s) 4 times daily. Dx: Type 2 DM - Uncontrolled Insulin: Yes - dexAMETHasone (DECADRON) 1 mg tablet Take the tablet at 11 pm and go for labs the next morning on fasting at 8 am - Insulin [place], Disposable, (BD ULTRA-FINE MARIA T PEN NEEDLE) 32 gauge x Use one needle for each dose. 1/day. - ergocalciferol 50,000 unit capsule (VITAMIN D2, DRISDOL) Take 1 capsule by mouth two times a week. - blood sugar diagnostic (BLOOD GLUCOSE TEST) test strip Test blood sugar(s) 2 times daily. Dx: Type 2 DM - Uncontrolled Insulin: No - spironolactone (ALDACTONE) 25 mg [...] Type 2 DM - Uncontrolled Insulin: No Problem List As Of Date 12/19/2024 Noted Resolved Diabetes mellitus type 2, controlled, [...] artery stenosis (HCC) [I70.1] 12/09/2023 Other ulcerative col (more content not included)... Normal [facility] Electrocardiogram reportOrde red By: Jamel Gray on 12-16-2024 EKG study [facility] [address] [place] [address] 12 Lead EKG 12/15/24 1226 MR#: [id number] Acct: [id number] Name: LEIDY BLANCO Rep #:[id number] : 1955 69 From: Jamel Gray MD Attending Dr: Dr. Anushka Hall MD Status: PRE NJC Ordering Dr: Anushka Hall MD Cecil e: 12/15/24 Location: [facility] [place] Sex: F C Admitted: Test Reason : PREOP Blood Pressure : */* mmHG Vent. Rate : 67 BPM Atrial Rate : 67 BPM P-R Int : 208 ms QRS Dur : 86 ms QT Int : 390 ms P-R-T Axes : * 8 2 degrees QTcB Int : 412 ms Normal sinus rhythm Normal ECG Confirmed by ISAAC TURNER, JAMEL ([id number]), supervising editor news reel ANNMARIE GANT ([id number]) on :50:15 AM Referred By: Anushka Hall Confirmed By: JAMEL GRAY MD 12/16/24 0550 Date _ Jamel Gray MD CC: Dr. Preet Farrar DO; Dr. Anushka Hall MD ~ Signed [facility] Work Phone: MR/PAT.ANEon 12-16-2024 MR/PAT.ANE Normal [facility] 12 Lead EKGon 12-15-2024 12 Lead EKG Normal [facility] Bilirubin, totalOrdered By: Anushka Hall on 12-15-2024 Bilirubin [Mass/Vol] 0.49 mg/dL 0.00-1.30 [facility] CBC-Complete Blood Cnt No Di ffon 12-15-2024 Erythrocyte distribution width (RBC) [Ratio] 13.2 % Normal 11.6-14.6 [facility] Comment on above: Performed By: #### L 506.0400, L100.0500, BTSPAT, L500.4050, L501.9520 ####[facility] [address] [place], [address] Hematocrit (Bld) [Volume fraction] 41.4 % Normal 37-47 [facility] Comment on above: Performed By: #### L 506.0400, L100.0500, BTSPAT, L500.4050, L501.9520 ####[facility] [address] [place], [address] Hemoglobin (Bld) [Mass/Vol] 13.9 g/dL Normal 12.0-15.0 [facility] Comment on above: Performed By: #### L 506.0400, L100.0500, BTSPAT, L500.4050, L501.9520 ####[facility] [address] [place], [address] MCH (RBC) [Entitic mass] 29.9 pg Normal 27.0-32.0 [facility] Comment on above: Performed By: #### L 506.0400, L100.0500, BTSPAT, L500.4050, L501.9520 ####[facility] [address] [place], [address] MCHC (RBC) [Mass/Vol] 33.6 g/dL Normal 32-36 [facility] Comment on above: Performed By: #### L 506.0400, L100.0500, BTSPAT, L500.4050, L501.9520 ####[facility] [address] [place], [address] MCV (RBC) [Entitic vol] 89.0 fL Normal 81-99 [facility] Comment on above: Performed By: #### L 506.0400, L100.0500, BTSPAT, L500.4050, L501.9520 ####[facility] [address] [place], [address] Platelet mean volume (Bld) [Entitic vol] 9.9 fL Normal 6.2-12.0 [facility] Comment on above: Performed By: #### L 506.0400, L100.0500, BTSPAT, L500.4050, L501.9520 ####[facility] [address] [place], [address] Platelets (Bld) [#/Vol] 354 10*3/uL Normal 150-450 [facility] Comment on above: Performed By: #### L 506.0400, L100.0500, BTSPAT, L500.4050, L501.9520 ####[facility] [address] [place], [address] RBC (Bld) [#/Vol] 4.65 10*6/uL Normal 4.2-5.4 [facility] Comment on above: Performed By: #### L 506.0400, L100.0500, BTSPAT, L500.4050, L501.9520 ####[facility] [address] [place], [address] RDW SD 43.2 fl Normal 35.1-43.9 [facility] Comment on above: Performed By: #### L 506.0400, L100.0500, BTSPAT, L500.4050, L501.9520 ####[facility] [address] [place], [address] WBC (Bld) [#/Vol] 11.5 10*3/uL High 4.4-11.0 [facility] Comment on above: Performed By: #### L 506.0400, L100.0500, BTSPAT, L500.4050, L501.9520 ####[facility] [address] [place], [address] Comprehensive Metabolic Prof mion 12-15-2024 Albumin [Mass/Vol] 4.3 g/dL Normal 3.4-4.8 [facility] Comment on above: Performed By: #### L 506.0400, L100.0500, BTSPAT, L500.4050, L501.9520 ####[facility] [address] [place], [address] Albumin/Globulin [Mass ratio] 1.4 {ratio} Normal 0.9-2.4 [facility] Comment on above: Performed By: #### L 506.0400, L100.0500, BTSPAT, L500.4050, L501.9520 ####[facility] [address] [place], [address] ALK PHOS 106 U/L High 35-104 [facility] Comment on above: Performed By: #### L 506.0400, L100.0500, BTSPAT, L500.4050, L501.9520 ####[facility] [address] [place], [address] ALT [Catalytic activity/Vol] 15 U/L Normal <=34 [facility] Comment on above: Performed By: #### L 506.0400, L100.0500, BTSPAT, L500.4050, L501.9520 ####[facility] [address] [place], [address] AST [Catalytic activity/Vol] 19 U/L Normal <=31 [facility] Comment on above: Performed By: #### L 506.0400, L100.0500, BTSPAT, L500.4050, L501.9520 ####[facility] [address] [place], [address] Bilirubin [Mass/Vol] 0.49 mg/dL Normal 0.00-1.30 [facility] Comment on above: Performed By: #### L 506.0400, L100.0500, BTSPAT, L500.4050, L501.9520 ####[facility] [address] [place], [address] BUN/CRE 26.0 RATIO High 10-20 [facility] Comment on above: Performed By: #### L 506.0400, L100.0500, BTSPAT, L500.4050, L501.9520 ####[facility] [address] [place], [address] Calcium [Mass/Vol] 9.7 mg/dL Normal 7.6-11.0 [facility] Comment on above: Performed By: #### L 506.0400, L100.0500, BTSPAT, L500.4050, L501.9520 ####[facility] [address] [place], [address] Chloride [Moles/Vol] 101 mmol/L Normal 98-108 [facility] Comment on above: Performed By: #### L 506.0400, L100.0500, BTSPAT, L500.4050, L501.9520 ####[facility] [address] [place], [address] CO2 [Moles/Vol] 24.6 mmol/L Normal 21.0-32.0 [facility] Comment on above: Performed By: #### L 506.0400, L100.0500, BTSPAT, L500.4050, L501.9520 ####[facility] [address] [place], [address] Creatinine [Mass/Vol] 0.72 mg/dL Normal 0.70-1.20 [facility] Comment on above: Performed By: #### L 506.0400, L100.0500, BTSPAT, L500.4050, L501.9520 ####[facility] [address] [place], [address] GAP 11 Normal 5-15 [facility] Comment on above: Performed By: #### L 506.0400, L100.0500, BTSPAT, L500.4050, L501.9520 ####[facility] [address] [place], [address] GFR/1.73 sq M.predicted among non-blacks MDRD (S/P/Bld) [Vol rate/Area] 90 mL/min/{1.73_m2} Normal >60 [facility] Comment on above: Result Comment: mL/m in/1.73m2 CKD-EPI Creatinine Equation (2020) Performed By: #### L 506.0400, L100.0500, BTSPAT, L500.4050, L501.9520 ####[facility] [address] [place], [address] Globulin (S) [Mass/Vol] 3.2 g/dL Normal 2.2-4.2 [facility] Comment on above: Performed By: #### L 506.0400, L100.0500, BTSPAT, L500.4050, L501.9520 ####[facility] [address] [place], [address] Glucose [Mass/Vol] 148 mg/dL High 70-99 [facility] Comment on above: Performed By: #### L 506.0400, L100.0500, BTSPAT, L500.4050, L501.9520 ####[facility] [address] [place], [address] Potassium [Moles/Vol] 4.1 mmol/L Normal 3.3-5.1 [facility] Comment on above: Performed By: #### L 506.0400, L100.0500, BTSPAT, L500.4050, L501.9520 ####[facility] [address] [place], [address] Sodium [Moles/Vol] 137 mmol/L Normal 133-145 [facility] Comment on above: Performed By: #### L 506.0400, L100.0500, BTSPAT, L500.4050, L501.9520 ####[facility] [address] [place], [address] T PROT 7.5 g/dL Normal 5.9-8.4 [facility] Comment on above: Performed By: #### L 506.0400, L100.0500, BTSPAT, L500.4050, L501.9520 ####[facility] [address] [place], [address] Urea nitrogen [Mass/Vol] 19 mg/dL Normal 4-19 [facility] Comment on above: Performed By: #### L 506.0400, L100.0500, BTSPAT, L500.4050, L501.9520 ####[facility] [address] [place], [address] Hemoglobin A1con 12-15-2024 HbA1c (Bld) [Mass fraction] 7.9 % Normal <=5.6 [facility] Comment on above: Performed By: #### L 501.9985, L501.5200 ####[facility] [address] [place], [address] Hemoglobin A1c percentageOrd ered By: Daniel Cesar on 12-15-2024 HbA1c (Bld) [Mass fraction] 7.9 % >5.7 [facility] Laboratory - Chemistry and C hemistry - challengeOrdered By: Anushka Hall on 12-15-2024 AST [Catalytic activity/Vol] 19 U/L <32 [facility] MR/PAT.ANEon 12-15-2024 MR/PAT.ANE Normal [facility] Magnesiumon 12-15-2024 Magnesium [Mass/Vol] 1.8 mg/dL Normal 1.5-2.2 [facility] Comment on above: Performed By: #### L 501.9985, L501.5200 ####[facility] [address] [place], [address] Magnesium (Unsp spec) [Mass/ Vol]Ordered By: Daniel Cesar on 12-15-2024 Magnesium [Mass/Vol] 1.8 mg/dL 1.5-2.2 [facility] Magnesium measurement (mass/ volume)Ordered By: Daniel Cesar on 12-15-2024 Magnesium (Unsp spec) [Mass/Vol] 1.8 mg/dL 1.5-2.2 [facility] Serum globulin measurementOr dered By: Anushka Hall on 12-15-2024 Globulin (S) [Mass/Vol] 3.2 g/dL 2.2-4.2 [facility] Serum or plasma alanine méndez otransferase (ALT) measurementOrdered By: Anushka Hall on 12-15-2024 ALT [Catalytic activity/Vol] 15 U/L <35 [facility] Serum or plasma albumin mulugeta urement (mass/volume)Ordered By: Anushka Hall on 12-15-2024 Albumin [Mass/Vol] 4.3 g/dL 3.4-4.8 [facility] Serum or plasma albumin/glob ulin mass ratioOrdered By: Anushka Hall on 12-15-2024 Albumin/Globulin [Mass ratio] 1.4 {ratio} 0.9-2.4 [facility] Serum or plasma alkaline umm sphatase measurementOrdered By: Anushka Hall on 12-15-2024 ALP [Catalytic activity/Vol] 106 U/L High 35-104 [facility] T4 Free Directon 12-15-2024 T4 FREE DIRECT 0.80 ng/dL Normal 0.76-1.46 [facility] Comment on above: Performed By: #### L 506.0400, L100.0500, BTSPAT, L500.4050, L501.9520 ####[facility] [address] [place], [place], [id number] T4 freeOrdered By: Anushka gerard on 12-15-2024 Free T4 [Mass/Vol] 0.80 ng/dL 0.76-1.46 [facility] TSH DL <= 0.005 mIU/L QnOrde red By: Anushka Hall on 12-15-2024 Thyroid Stimulating Hormone (TSH) 0.836 uIU/mL 0.300-4.200 [facility] TSH Qn 0.836 uIU/mL 0.300-4.200 [facility] Thyroid Stim Hormone (TSH)on 12-15-2024 TSH 0.836 uIU/mL Normal 0.300-4.200 [facility] Comment on above: Performed By: #### L 506.0400, L100.0500, BTSPAT, L500.4050, L501.9520 ####[facility] [address] [place], [address] Total proteinOrdered By: Jas Hall on 12-15-2024 Protein [Mass/Vol] 7.5 g/dL 5.9-8.4 [facility] Type AND Screen - PAT ONLYon 12-15-2024 ABO and Rh group Nom (Bld) Blood group A Rh(D) positive Normal [facility] Comment on above: Order Comment: Surge ry Date: 12/27/24Reason for Laboratory Test [id number] VAG HYSTER Performed By: #### L 506.0400, L100.0500, BTSPAT, L500.4050, L501.9520 ####[facility] [address] [place], [address] CNOVon 12-14-2024 CNOV Office Visit (FAMPWS ) LEIDY BLANCO ([id number]) 1955 F Date Time Provider Department 12/14/24 11:00 AM PREET FARRAR FAMPWS During your visit today, we recorded the following information about you: Temperature Pulse Respiration Blood pressure 97 degrees 64/minute 16/minute 136/70 Weight Height 84.4 kg 1.53 m Preet Farrar DO 12/14/2024 11:45 AM Signed Start the Victoza 0.6 mg once a day for blood sugar control Stop the Januvia when you start this for your diabetes Preet Farrar DO 12/14/2024 12:07 PM Signed Patient presents with: Pre-Op Exam: hysterectomy HPI: Leidy Blanco is a 69 year old female who presents to the office today for review of health conditions. Concerns today: She has recently had elevated blood glucose readings from 30s to 250s and sometimes rarely as high as the 320s range. She is taking lantus 22 units a day, amaryl as well as januvia medication daily. She was on Ozempic in the past but when dose was increased to 2 mg/week she suffered from acute pancreatitis for which she was hospitalized. She is willing to try an alternative GLP 1 agonist medication if able to get this approved by insurance. She has upcoming MEREDITH with Dr. Hall She denies any CP or dyspnea or dizziness/LH or edema She is exercising regularly with walking on the treadmill daily Ms. Blanco has past history of diabetes. Since our last visit she denies excessive thirst or increased frequency of urination, chest pain or dyspnea , new or unusual visual symptoms, and low sugar/hypoglycemic reactions. Follows a diabetic diet most of the time. She is compliant with medication(s) and is tolerating med(s) without any side effects. She reports checking her glucose on a three times a day schedule with sugars in the fasting see above range. Patient's last HgA1C was Hemoglobin A1C (%) Date Value 10/05/2024 7.3 05/17/2024 6.9 11/13/2021 6.3 04/16/2021 6.3 Hemoglobin A1C (POCT) (%) Date Value 01/06/2024 6.5 ) Last Ophthalmology exam was within the past 12 months Ms. Blanco reports history of hyperlipidemia. Current therapy includes atorvastatin (Lipitor) 80 mg. Denies side effects of muscle weakness or achiness. Her most recent lipid panels are reviewed. Cholesterol, Total (mg/dL) Date Value 10/05/2024 122 04/16/2021 193 HDL Cholesterol (mg/dL) Date Value 10/05/2024 65 04/16/2021 58 LDL Cholesterol (mg/dL) Date Value 10/05/2024 36 04/16/2021 91 Triglyceride (mg/dL) Date Value 10/05/2024 105 04/16/2021 222 Ms. Blanco indicates a history of hypertension and states that she is feeling well and denies any symptoms referable to elevated blood pressure. Specifically denies headache, chest pain, palpitations, dyspnea, and peripheral edema. Patient denies any side effects of her medication(s) and is compliant with their regimen. Last 3 Encounter BP Readings: Date: BP: 12/14/2024 136/70 11/11/2024 124/74 10/07/2024 116/60 She watches her diet for sodium, low fat and low cholesterol most of the time. She does not check BP's generally. Leidy likes to exercise by walking on treadmill. PAST MEDICAL HISTORY Diagnosis Date Aortic stenosis, moderate 08/2019 Benign hypertensive heart disease Celiac disease Diabetes mellitus without mention of complication Diabetes mellitus Fatty liver Grave's disease IBS (irritable bowel syndrome) Medical marijuana use has card Ulcerative colitis, unspecified Vitamin D deficiency PAST SURGICAL HISTORY Procedure Laterality Date COLONOSCOPY FLX DX W/COLLJ SPEC WHEN PFRMD 09/09/2013 Colonoscopy ESOPHAGOGASTRODUODENO SCOPY TRANSORAL DIAGNOSTIC 09/09/2013 EGD INFUSE RADIOACTIVE MATERIALS [...] date: 11/02/2002 Quit date: 11/02/2022 Years since quittin.1 Smokeless tobacco: Never Substance Use Topics Alcohol [...] Itching Sulfa (Sulfonamide * Rash Current Meds: spironolactone (ALDACTONE) 25 mg tablet Take 25 mg by mouth once daily. (Patient taking differently: Take 25 mg by mouth t (more content not included)... Normal [facility]en 12-14-2024 DEREKN Telephone (FAMPWS) LEIDY BLANCO Joaquim ([id number]) 1955 F Date Time Provider Department 12/14/24 PREET FARRAR During your visit today, we recorded the following information about you: Chelo Prasad RN 12/14/2024 3:47 PM Signed Patient was seen by Dr. Farrar today. Reports Victoza was ordered for her today and her pharmacy is unable to get it. Asking if okay to use the generic version? Wants PCP opinion. Or, should she switch to Trulicity? Having hysterectomy on 12/27. Should she wait until after the procedure to start any of this new medication? Please call patient with reply. OLVIN Mujica Alyson Taylor, APRN.ENGINEERING TEST SPECIALIST 12/14/2024 5:14 PM Signed Ok to use generic form. Yes, I would wait to start new medication until after recovery of surgery. Thank you, Jacqueline Candelario APRN.Sahara Reddy LPN 12/14/2024 5:37 PM Signed Pt. wants Luisulicchantale sent to [facility]. Insurance won't pay for Victoza. Jacqueline Candelario APRN.DEREK 12/14/2024 5:40 PM Signed The following approved medication requests have been transmitted electronically. Requested Prescriptions Signed Prescriptions Disp Refills dulaglutide (TRULICITY) 0.75 mg/0.5 mL pen injector 6 mL 2 Sig: Inject 0.75 mg subcutaneously one time a week. Authorizing Provider: JACQUELINE CANDELARIO APRN.CNP Allergies As of Date: 12/14/2024 Noted Allergy Reaction ASA (SALICYLATES) 01/05/2006 4 - Hives 8 - GI Upset Comments: As a child GLUTEN 10/17/2016 5 - Intolerance METFORMIN 8 - GI Upset 9 - Itching PREDNISONE 10/02/2012 9 - Itching SULFA (SULFONAMIDE ANTIBIOTICS) 12/29/2005 2 - Rash Date Reviewed: 11/11/2024 Reviewed by: Madie Bruce MA - Fully Assessed Reason for Visit: Medication Question [Other] Primary Visit Diagnosis:Uncontrolle d type 2 diabetes mellitus with hyperglycemia (HCC) [E11.65] Order(s):dulaglutide (TRULICITY) 0.75 mg/0.5 mL pen injectorInject 0.75 mg subcutaneously one time a week.Disp: 6 mLRfl: 2 Prescriptions as of 12/14/2024 - dulaglutide (TRULICITY) 0.75 mg/0.5 mL pen injector Inject 0.75 mg subcutaneously one time a week. - clopidogrel (PLAVIX) 75 mg tablet Take 1 tablet by mouth once daily. - atorvastatin (LIPITOR) 80 mg tablet Take 1 tablet by mouth once daily. - carvedilol (COREG) 6.25 mg tablet Take 1 tablet by mouth two times a day with meals. - losartan (COZAAR) 25 mg tablet Take 1 tablet by mouth every afternoon. - ARMOUR THYROID 30 mg tablet Take 1 tablet by mouth every Thursday, Thursday, and Thursday. In the morning. (Take this is addition to the 120 mg armor thyroid) - insulin glargine (LANTUS SOLOSTAR U-100 INSULIN) 100 unit/mL (3 mL) Inject 20 Units subcutaneously daily at bedtime. - glimepiride (AMARYL) 2 mg tablet Take 1 tablet by mouth two times a day with meals. - pantoprazole DR (PROTONIX) 40 mg tablet Take 1 tablet by mouth once daily. - ARMOUR THYROID 120 mg tablet Take 1 tablet PO daily in AM - blood sugar diagnostic (ONETOUCH VERIO TEST STRIPS) test strip Test blood sugar(s) 4 times daily. Dx: Type 2 DM - Uncontrolled E11.65 Insulin: Yes - dexAMETHasone (DECADRON) 1 mg tablet Take the tablet at 11 pm and go for labs the next morning on fasting at 8 am - Insulin [place], Disposable, (BD ULTRA-FINE MARIA T PEN NEEDLE) 32 gauge x 532 Use one needle for each dose. 1/day. - ergocalciferol 50,000 unit capsule (VITAMIN D2, DRISDOL) Take 1 capsule by mouth two times a week. - blood sugar diagnostic (BLOOD [...] Type 2 DM - Uncontrolled Insulin: No Problem List As Of Date 12/14/2024 Noted Resolved Diabetes mellitus type 2, controlled, without c*07/13/2006 12/08/2022 BENIGN HYPERTENSION [I10] 07/13/2006 ADJUSTMENT DISORDER WITH DEPRESSED MOOD [F43.21]07/13/2006 ANXIETY STATE NOS [F41.1] 07/13/2006 Hypothyroidism [E03.9] 07/13/2006 Abdominal pain, right upper quadrant [R10.11] 02/16/2007 12/08/2022 Tobacco Use Disorder [F17.200] 10/29/2009 Celiac disease [K90.0] 11/06/2009 Fatigue [R53.83] 09/07/2017 Medial epicondylitis, left [M77.02] more content not included)... Normal [facility] Lna Office Visit Reporton 12-12-2024 Lna Office Visit Report Normal [facility] CREATININE, 24 HOUR URINEon 11-18-2024 Creatinine (24H U) [Mass/Time] 1.125 g/24 hr Normal 0.800-1.800 [facility] Comment on above: Order Comment: Speci men Type: URINE SPECIMENOrdering Facility: [facility] Address: [address] [place], [place] [id number] Performed By: #### U CRD ####[facility] LABCLIA [id number] [place] [address] [place] PERIOD (HRS) 24 hr Normal [facility] Comment on above: Order Comment: Speci men Type: URINE SPECIMENOrdering Facility: [facility] Address: [address] [place] [address] Performed By: #### U CRD ####[facility] LABCLIA [id number] [address] [place] Specimen volume (24H U) 1.5 L Normal [facility] Comment on above: Order Comment: Speci men Type: URINE SPECIMENOrdering Facility: [facility] Address: [address] [place] [address] Performed By: #### U CRD ####[facility] LABCLIA [id number] [address] [place] URINE FREE CORTISOL BY LC-MS /MSon 11-18-2024 CORTISOL UG/G CENTRAL STERILE TECH, UR (UFRCRT) 28.27 ug/g CENTRAL STERILE TECH Normal [facility] Comment on above: Order Comment: Speci men Type: URINE SPECIMENOrdering Facility: [facility] Address: [address] [place] [address] Result Comment: Refe rence Interval: Cortisol ug/g director of nursing Female Prepubertal: Less than 25 ug/g director of nursing 18 years and older: Less than 24 ug/g director of nursing : Less than 59 ug/g director of nursing Male Prepubertal: Less than 25 ug/g director of nursing 18 years and older: Less than 32 ug/g director of nursing Performed By: #### U FRCRT ####[facility] [id number] [place] [address] CREATININE, URINE PER 24H 1215 mg/d Normal 500-1400 [facility] Comment on above: Order Comment: Speci men Type: URINE SPECIMENOrdering Facility: [facility] Address: [address] [place] [address] Performed By: #### U FRCRT ####[facility] [id number] [place] [address] CREATININE, URINE PER VOLUME 81 mg/dL Normal [facility] Comment on above: Order Comment: Speci men Type: URINE SPECIMENOrdering Facility: [facility] Address: [address] [place] [address] Performed By: #### U FRCRT ####[facility] [id number] [place] [address] FREE CORTISOL UG/DAY, URINE 34.4 ug/d Normal <=45.0 [facility] Comment on above: Order Comment: Speci men Type: URINE SPECIMENOrdering Facility: [facility] Address: [address] [place] [address] Performed By: #### U FRCRT ####[facility] [id number] [place] [address] FREE CORTISOL UG/L, URINE 22.90 ug/L Normal [facility] Comment on above: Order Comment: Speci men Type: URINE SPECIMENOrdering Facility: [facility] Address: [address] [place] [address] Performed By: #### U FRCRT ####[facility] [id number] [place] [address] HOURS COLLECTED 24 hr Normal [facility] Comment on above: Order Comment: Speci men Type: URINE SPECIMENOrdering Facility: [facility] Address: [address] [place] [address] Result Comment: Per 24h calculations are provided to aid interpretation for collections with a duration of 24 hours and an average daily urine volume. For specimens with notable deviations in collection time or volume, ratios of analytes to a corresponding urine creatinine concentration may assist in result interpretation. Performed By: #### U FRCRT ####[facility] [id number] [place] [address] TOTAL VOLUME 1500 mL Normal [facility] Comment on above: Order Comment: Speci men Type: URINE SPECIMENOrdering Facility: [facility] Address: [address] [place] [address] Performed By: #### U FRCRT ####[facility] [id number] [place] [address] UR YENNY FREE INTERP See Note Normal [facility] Comment on above: Order Comment: Speci men Type: URINE SPECIMENOrdering Facility: [facility] Address: [address] [place] [address] Result Comment: INTE RPRETIVE INFORMATION: Cortisol Urine Free by LC-MS/MS Access complete set of age- and/or gender-specific reference intervals for this test in the Original Laboratory Test Directory (Agile). This test was developed and its performance characteristics determined by [facility]. It has not been cleared or approved by the [place] Food and Drug Administration. This test was performed in a CLIA certified laboratory and is intended for clinical purposes. Performed By: [facility] [address] [place] [address] Water Aerobics Instructor: Suresh Rothman MD, PhD CLIA Number: [id number] Performed By: #### U FRCRT ####[facility]ORATORIESCLIA [id number] [place] [address] THYROXIN, FR BY EQ DIALYSIS/ HPLC-TNDMMSon 11-16-2024 FREE T4 BY EQ DIALYSIS 1.2 ng/dL Normal 1.1-2.4 [facility] Comment on above: Order Comment: Speci men Type: BLOOD SPECIMENOrdering Facility: [facility] Address: [address] [place] [address] Result Comment: FREE T4 BY EQUIL DIALYSIS-TMS: REFERENCE INTERVALS 1ST TRIMESTER ...... 0.7 - 2.0 ng/dL 2ND TRIMESTER ...... 0.7 - 2.1 ng/dL 3RD TRIMESTER ...... 0.5 - 1.6 ng/dL INTERPRETIVE INFORMATION: FT4 ED-TMS Some medications may induce transient changes in FT4 concentrations. This test is not recommended for patients currently on heparin treatment as FT4 concentrations may be falsely elevated. Performed By: [facility] [address] [place], [place] [address] Water Aerobics Instructor: Suresh Rothman MD, PhD CLIA Number: [id number] Performed By: #### T 4HPLC ####[facility] LABORATORIESCLIA [id number] [place] [address] TSH SerPl-aCncon 11-16-2024 TSH Qn 1.180 m[IU]/L Normal 0.270-4.200 [facility] Comment on above: Order Comment: Speci men Type: BLOOD SPECIMENOrdering Facility: [facility] Address: [address] [place] [address] Performed By: #### 3 016-3 ####[facility] LABCLIA [id number] [address] [id number] [id number] [facility] CNOVon 11-11-2024 CNOV Office Visit (ENWSTR ) SUSANALEIDY DEE ([id number]) 1955 F Date Time Provider Department 11/11/24 9:40 AM BEAN ISAAC ENWSTR During your visit today, we recorded the following information about you: Temperature Pulse Blood pressure Weight 97.1 degrees 89/minute 124/74 81.6 kg Bean Isaac MD 11/11/2024 6:16 PM Signed [facility] Follow up note Referred by: PCP- Preet Farrar DO History of Present illness: Leidy March Francis is a 69 year old female here today for evaluation [...] years until lantus -Duration of insulin use: few months now Complications: Cardiovascular -- Yes HTN, HLD, in 2021 she had a Stroke Statin Use -- Yes, atorvastatin 80 mg daily Retinopathy -- No Last JUAN/Retina Eval: 03/2024 Nephropathy -- Yes NICOLE/ARB Use -- Yes [...] past . Diabetes Medications -Current regimen: lantus 18 units daily in the morning (started using insulin in March 2024, increased to 18 units 2 weeks ago), Sitagliptin 100 mg daily, glimepiride 2 mg daily (she herself decreased by half pil 2 weeks ago from 2.5 mg which also she increased by herself) -Misses doses: None -Adverse medication effects: no -Rotating injection sites: yes -Previously Used DM Meds: Yes Metformin - GI upset Jardiance- Yeast infection She was on Ozempic 1 mg for more than 1 year, when it was increased to 2 mg she was hospitalized due to vomiting, diarrhea and was diagnosed with Gastroparesis assumed to be due to the medication . Blood sugars -Self monitoring of blood sugar via fingerstick: 4 x daily Insurance did not approve CGM. She brought glucometer -Brought blood glucose log for review: yes Oct 28, 2024 to nov 11, 2024 Avg B mg/dl Highest 285 mg/dl, lowest 102 mg/dl -BG log reviewed: --Fastin-216 --Prelunch: 157-213 --Predinner: 140-215 --Bedtime: 165-225 Hypoglycemia -Hypoglycemic episodes: denied any lows, nothing lower than 102 mg/dl as per glucometer readings for the last 15 days -Frequency and timing of hypoglycemia: n/a -Hypoglycemia awareness: n/a Concerns reported today: She denied any hyperglycemic symptoms today. After I told about side effect of weight gain with glimepiride and insulin dose increase, she does report gaining about 5 to 6 lbs in the last 2 weeks after increase glimepiride by 1/2 pill Last time I discussed with her that glimepiride can cause weight gain, as well as insulin. She possibly reduced dose of glimepiride due to this, and since her BG has been higher than before atleast from what she reported on last visit as her BG readings, no significant change in Hba1c She did not do the Dexamethasone suppression test due to itchy sensation when she takes prednisone and would like to avoid that allerrgic reaction . She would like to She has a hx of smoking that she quit but she is concerned of weight gain despite not eating much carbs . Lifestyle -Exercise: 30 mins on [employer] mill daily -Diet: Breakfast: 3 eggs, 1 slice of gluten free bread Lunch: yogurt with 3 gms of carbs, either cheese or chicken sausage, half orange or small cup of fruit Dinner: salmon, chicken strips with 3 gms of carbs, broccoli or brussels sprouts . Blood pressure -Today BP 124/74 -Current antihypertensive therapy: carvedilol 6.25 mg BID, [...] CARDIOVASCULAR: Chest pain, palpitations, irregular heart beats GASTRO-INTESTINAL:Den ies Nausea, vomiting, abdominal pain, hyperdefecation, rectal bleeding NEUROLOGICAL: Denies dizziness, lightheadedness, weakness, cramp (more content not included)... Normal [facility] GLOOKO ON DEMANDon Ordered by an unspecified provider. [facility] CBC W Auto Differential pane l (Bld)on 11-07-2024 Basophils (Bld) [#/Vol] 0.07 10*3/uL Normal <0.11 [facility] Comment on above: Order Comment: Speci men Type: BLOOD SPECIMENOrdering Facility: [facility] Address: [address] [place] [address] Performed By: #### 5 7021-8 ####[facility] LABCLIA [id number] [place] [address] [place] Basophils/100 WBC (Bld) 0.7 % Normal [facility] Comment on above: Order Comment: Speci men Type: BLOOD SPECIMENOrdering Facility: [facility] Address: [address] [place] [address] Performed By: #### 5 7021-8 ####[facility] LABCLIA [id number] [place] [address] [place] Differential cell count method Nom (Bld) Auto Normal [facility] Comment on above: Order Comment: Speci men Type: BLOOD SPECIMENOrdering Facility: [facility] Address: [address] [place] [address] Performed By: #### 5 7021-8 ####[facility] LABCLIA [id number] [place] [address] [place] Eosinophils (Bld) [#/Vol] 0.25 10*3/uL Normal <0.46 [facility] Comment on above: Order Comment: Speci men Type: BLOOD SPECIMENOrdering Facility: [facility] Address: [address] [place] [address] Performed By: #### 5 7021-8 ####[facility] LABCLIA [id number] [place] [address] [place] Eosinophils/100 WBC (Bld) 2.6 % Normal [facility] Comment on above: Order Comment: Speci men Type: BLOOD SPECIMENOrdering Facility: [facility] Address: [address] [place] [address] Performed By: #### 5 7021-8 ####[facility] LABCLIA [id number] [place] [address] [place] Erythrocyte distribution width (RBC) [Ratio] 13.3 % Normal 11.5-15.0 [facility] Comment on above: Order Comment: Speci men Type: BLOOD SPECIMENOrdering Facility: [facility] Address: [address] [place] [address] Performed By: #### 5 7021-8 ####[facility] LABCLIA [id number] [place] [address] [place] Hematocrit (Bld) [Volume fraction] 40.9 % Normal 36.0-46.0 [facility] Comment on above: Order Comment: Speci men Type: BLOOD SPECIMENOrdering Facility: [facility] Address: [address] [place] [address] Performed By: #### 5 7021-8 ####[facility] LABCLIA [id number] [place] [address] [place] Hemoglobin (Bld) [Mass/Vol] 13.3 g/dL Normal 11.5-15.5 [facility] Comment on above: Order Comment: Speci men Type: BLOOD SPECIMENOrdering Facility: [facility] Address: [address] [place] [address] Performed By: #### 5 7021-8 ####[facility] LABCLIA [id number] [place] [address] [place] Immature granulocytes (Bld) [#/Vol] 0.07 10*3/uL Normal <0.10 [facility] Comment on above: Order Comment: Speci men Type: BLOOD SPECIMENOrdering Facility: [facility] Address: [address] [place] [address] Performed By: #### 5 7021-8 ####[facility] LABCLIA [id number] [place] [address] [place] Immature granulocytes/100 WBC (Bld) 0.7 % Normal [facility] Comment on above: Order Comment: Speci men Type: BLOOD SPECIMENOrdering Facility: [facility] Address: [address] [place] [address] Performed By: #### 5 7021-8 ####[facility] LABCLIA [id number] [place] [address] [place] Lymphocytes (Bld) [#/Vol] 2.00 10*3/uL Normal 1.00-4.00 [facility] Comment on above: Order Comment: Speci men Type: BLOOD SPECIMENOrdering Facility: [facility] Address: [address] [place] [address] Performed By: #### 5 7021-8 ####[facility] LABCLIA [id number] [place] [address] [place] Lymphocytes/100 WBC (Bld) 20.5 % Normal [facility] Comment on above: Order Comment: Speci men Type: BLOOD SPECIMENOrdering Facility: [facility] Address: [address] [place] [address] Performed By: #### 5 7021-8 ####[facility] LABCLIA [id number] [place] [address] [place] MCH (RBC) [Entitic mass] 30.2 pg Normal 26.0-34.0 [facility] Comment on above: Order Comment: Speci men Type: BLOOD SPECIMENOrdering Facility: [facility] Address: [address] [place] [address] Performed By: #### 5 7021-8 ####[facility] LABCLIA [id number] [place] [address] [place] MCHC (RBC) [Mass/Vol] 32.5 g/dL Normal 30.5-36.0 [facility] Comment on above: Order Comment: Speci men Type: BLOOD SPECIMENOrdering Facility: [facility] Address: [address] [place] [address] Performed By: #### 5 7021-8 ####[facility] LABCLIA [id number] [place] [address] [place] MCV (RBC) [Entitic vol] 93.0 fL Normal 80.0-100.0 [facility] Comment on above: Order Comment: Speci men Type: BLOOD SPECIMENOrdering Facility: [facility] Address: [address] [place] [address] Performed By: #### 5 7021-8 ####[facility] LABCLIA [id number] [place] [address] [place] Monocytes (Bld) [#/Vol] 0.87 10*3/uL High <0.87 [facility] Comment on above: Order Comment: Speci men Type: BLOOD SPECIMENOrdering Facility: [facility] Address: [address] [place] [address] Performed By: #### 5 7021-8 ####[facility] LABCLIA [id number] [place] [address] [place] Monocytes/100 WBC (Bld) 8.9 % Normal [facility] Comment on above: Order Comment: Speci men Type: BLOOD SPECIMENOrdering Facility: [facility] Address: [address] [place] [address] Performed By: #### 5 7021-8 ####[facility] LABCLIA [id number] [place] [address] [place] Neutrophils (Bld) [#/Vol] 6.48 10*3/uL Normal 1.45-7.50 [facility] Comment on above: Order Comment: Speci men Type: BLOOD SPECIMENOrdering Facility: [facility] Address: [address] [place] [address] Performed By: #### 5 7021-8 ####[facility] LABCLIA [id number] [place] [address] [place] Neutrophils/100 WBC (Bld) 66.6 % Normal [facility] Comment on above: Order Comment: Speci men Type: BLOOD SPECIMENOrdering Facility: [facility] Address: [address] [place] [address] Performed By: #### 5 7021-8 ####[facility] LABCLIA [id number] [place] [address] [place] Nucleated RBC (Bld) [#/Vol] 10*3/uL Normal <0.01 [facility] Comment on above: Order Comment: Speci men Type: BLOOD SPECIMENOrdering Facility: [facility] Address: [address] [place] [address] Performed By: #### 5 7021-8 ####[facility] LABCLIA [id number] [place] [address] [place] Nucleated RBC/100 WBC (Bld) [Ratio] 0.0 /100 WBC Normal [facility] Comment on above: Order Comment: Speci men Type: BLOOD SPECIMENOrdering Facility: [facility] Address: [address] [place] [address] Performed By: #### 5 7021-8 ####[facility] LABCLIA [id number] [place] [address] [place] Platelet mean volume (Bld) [Entitic vol] 9.9 fL Normal 9.0-12.7 [facility] Comment on above: Order Comment: Speci men Type: BLOOD SPECIMENOrdering Facility: [facility] Address: [address] [place] [address] Performed By: #### 5 7021-8 ####[facility] LABCLIA [id number] [place] [address] [place] Platelets (Bld) [#/Vol] 314 10*3/uL Normal 150-400 [facility] Comment on above: Order Comment: Speci men Type: BLOOD SPECIMENOrdering Facility: [facility] Address: [address] [place] [address] Performed By: #### 5 7021-8 ####[facility] LABCLIA [id number] [place] [address] [place] RBC (Bld) [#/Vol] 4.40 10*6/uL Normal 3.90-5.20 [facility] Comment on above: Order Comment: Speci men Type: BLOOD SPECIMENOrdering Facility: [facility] Address: [address] [place] [address] Performed By: #### 5 7021-8 ####[facility] LABCLIA [id number] [place] [address] [place] WBC (Bld) [#/Vol] 9.74 10*3/uL Normal 3.70-11.00 [facility] Comment on above: Order Comment: Speci men Type: BLOOD SPECIMENOrdering Facility: [facility] Address: [address] [place] [address] Performed By: #### 5 7021-8 ####[facility] LABCLIA [id number] [place] [address] [place] Ferritin SerPl-ncon 2024 Ferritin [Mass/Vol] 39.0 ng/mL Normal 14.7-205.1 [facility] Comment on above: Order Comment: Speci men Type: BLOOD SPECIMENOrdering Facility: [facility] Address: [address] [place] [address] Performed By: #### 2 276-4, 84378-4, 3084-1, 96429-9 ####[facility] LABCLIA [id number] [place] [address] [place] Iron and Iron binding capaci ty panelon 11-07-2024 Iron [Mass/Vol] 62 ug/dL Normal 41-186 [facility] Comment on above: Order Comment: Speci men Type: BLOOD SPECIMENOrdering Facility: [facility] Address: [address] [place] [address] Performed By: #### 2 276-4, 25358-9, 3084-1, 47460-9 ####[facility] LABCLIA [id number] [place] [address] [place] Iron binding capacity [Mass/Vol] 404 ug/dL High 232-386 [facility] Comment on above: Order Comment: Speci men Type: BLOOD SPECIMENOrdering Facility: [facility] Address: [address] [place] [address] Performed By: #### 2 276-4, 02354-2, 3084-1, 27883-3 ####[facility] LABIA [id number] [place] [id number] [place] Iron/TIBC [Molar ratio] 15.3 % Normal 15.0-57.0 [facility] Comment on above: Order Comment: Speci men Type: BLOOD SPECIMENOrdering Facility: [facility] Address: [address] [place] [address] Performed By: #### 2 276-4, 50726-9, 3084-1, 09900-6 ####[facility] LABIA [id number] [place] [address] [place] PTH-[facility]act [facility] Parathyrin.intact [Mass/Vol] 42 pg/mL Normal 15-65 [facility] Comment on above: Order Comment: Speci men Type: BLOOD SPECIMENOrdering Facility: [facility] Address: [address] [place] [address] Performed By: #### 2 731-8 ####[facility] LABCLIA [id number] [place] [id number] [place] Prot/Creat Uron 11-07-2024 Protein/Creatinine (U) [Mass ratio] 0.08 mg/mg Normal <0.15 [facility] Comment on above: Order Comment: Speci men Type: URINE SPECIMENOrdering Facility: [facility] Address: [address] [place] [address] Result Comment: Adul t Proteinuria Categories: <0.15 mg/mg is considered normal to mildly increased 0.15 - 0.50 mg/mg is considered moderately increased >0.50 mg/mg is considered severely increased KDIGO. (2013). KDIGO 2012 Clinical Practice Guideline for the Evaluation and Management of Chronic Kidney Disease. Official Journal of the International Society of Nephrology, 3(1), 1-150. Performed By: #### 2 890-2 ####[facility] LABCLIA [id number] [address] [address] [place] Protein/Creatinine (U) [Mass ratio]on 11-07-2024 Creatinine (U) [Mass/Vol] 64.2 mg/dL Normal 20.0-300.0 [facility] Comment on above: Order Comment: Speci men Type: URINE SPECIMENOrdering Facility: [facility] Address: [address] [place] [address] Performed By: #### 2 890-2 ####[facility] LABCLIA [id number] [place] [address] [place] Protein (U) [Mass/Vol] 5 mg/dL Normal 0-20 [facility] Comment on above: Order Comment: Speci men Type: URINE SPECIMENOrdering Facility: [facility] Address: [address] [place] [address] Performed By: #### 2 890-2 ####[facility] LABCLIA [id number] [address] [address] [place] Renal function 2000 panelon 11-07-2024 Albumin [Mass/Vol] 4.2 g/dL Normal 3.9-4.9 [facility] Comment on above: Order Comment: Speci men Type: BLOOD SPECIMENOrdering Facility: [facility] Address: [address] [place] [address] Performed By: #### 2 276-4, 03351-3, 3084-1, 26813-7 ####[facility] LABCLIA [id number] [address] [address] [place] Anion gap [Moles/Vol] 11 mmol/L Normal 8-15 [facility] Comment on above: Order Comment: Speci men Type: BLOOD SPECIMENOrdering Facility: [facility] Address: [address] [place] [address] Performed By: #### 2 276-4, 17424-2, 3084-1, 17084-3 ####[facility] LABCLIA [id number] [place] [facility] [address] [address] [place] Calcium [Mass/Vol] 9.8 mg/dL Normal 8.5-10.2 [facility] Comment on above: Order Comment: Speci men Type: BLOOD SPECIMENOrdering Facility: [facility] Address: [address] [place] [address] Performed By: #### 2 276-4, 37087-2, 3084-, 84652-9 ####[facility] LABCLIA [id number] [facility] [place] [id number] [place] Chloride [Moles/Vol] 98 mmol/L Normal 98-107 [facility] Comment on above: Order Comment: Speci men Type: BLOOD SPECIMENOrdering Facility: [facility] Address: [address] [place] [address] Performed By: #### 2 276-4, 69008-5, 3084-, 89480-7 ####[facility] LABCLIA [id number] [facility] [address] [address] [place] CO2 [Moles/Vol] 25 mmol/L Normal 22-30 [facility] Comment on above: Order Comment: Speci men Type: BLOOD SPECIMENOrdering Facility: [facility] Address: [address] [place] [address] Performed By: #### 2 276-4, 95452-9, 3084-1, 99446-9 ####[facility] LABCLIA [id number] [facility] [address] [address] [place] Creatinine [Mass/Vol] 0.72 mg/dL Normal 0.58-0.96 [facility] Comment on above: Order Comment: Abimbola diaz Type: BLOOD SPECIMENOrdering Facility: [facility] Address: [address] [place] [address] Performed By: #### 2 276-4, 76212-4, 3084-1, 44423-1 ####[facility] LABCLIA [id number] [place] [address] [place] Creatinine and Glomerular filtration rate.predicted panel (S/P/Bld) 91 mL/min/1.73m??? Normal >=60 [facility] Comment on above: Order Comment: Abimbola diaz Type: BLOOD SPECIMENOrdering Facility: [facility] Address: [address] [place] [address] Result Comment: Ana Paula mated Glomerular Filtration [...] reflect actual GFR. Performed By: #### 2 276-4, 25144-2, 3084-1, 36730-1 ####[facility] LABCLIA [id number] [address] [address] [place] Glucose [Mass/Vol] 237 mg/dL High 74-99 [facility] Comment on above: Order Comment: Abimbola diaz Type: BLOOD SPECIMENOrdering Facility: [facility] Address: [address] [place] [address] Result Comment: The [place] [employer] (ADA) provides guidance for cutoff [...] Standards of Medical Care in Diabetes 2016, [place] [employer]. Diabetes Care. 2016.39(Suppl 1). Performed By: #### 2 276-4, 03815-6, 3084-1, 15560-6 ####[facility] LABCLIA [id number] [facility] [address] [address] [place] Phosphate [Mass/Vol] 3.5 mg/dL Normal 2.7-4.8 [facility] Comment on above: Order Comment: Abimbola diaz Type: BLOOD SPECIMENOrdering Facility: [facility] Address: [address] [place] [address] Performed By: #### 2 276-4, 65945-0, 4-1, 38190-0 ####[facility] LABCLIA [id number] [place] [address] [place] Potassium [Moles/Vol] 4.6 mmol/L Normal 3.7-5.1 [facility] Comment on above: Order Comment: Abimbola diaz Type: BLOOD SPECIMENOrdering Facility: [facility] Address: [address] [place] [address] Performed By: #### 2 276-4, 54066-8, 4-, 52078-4 ####[facility] LABCLIA [id number] [address] [address] [place] Sodium [Moles/Vol] 134 mmol/L Low 136-144 [facility] Comment on above: Order Comment: Abimbola diaz Type: BLOOD SPECIMENOrdering Facility: [facility] Address: [address] [place] [address] Performed By: #### 2 276-4, 85427-8, 3084-1, 02100-2 ####[facility] LABCLIA [id number] [address] [address] [place] Urea nitrogen [Mass/Vol] 18 mg/dL Normal 7-21 [facility] Comment on above: Order Comment: Abimbola emily Type: BLOOD SPECIMENOrdering Facility: [facility] Address: [address] [place] [address] Performed By: #### 2 276-4, 59144-2, 3084-1, 15949-6 ####[facility] LABCLIA [id number] [place] [address] [place] Urate SerPl-mCncon Urate [Mass/Vol] 3.4 mg/dL Normal 2.5-6.6 [facility] Comment on above: Order Comment: Abimbola diaz Type: BLOOD SPECIMENOrdering Facility: [facility] Address: [address] [place] [address] Performed By: #### 2 276-4, 54519-3, 3084-, 06093-2 ####[facility] LABCLIA [id number] [place] [address] [place] Echo Completeon 10-10-2024 Echo Complete Normal [facility] Stress Reporton 10-10-2024 Stress Report Normal [facility] CNOVon 10-07-2024 CNOV Office Visit (FAMPWS ) LEIDY BLANCO ([id number]) 1955 F Date Time Provider Department 10/07/24 11:00 AM PREET FARRAR FAMPWS During your visit today, we recorded the following information about you: Temperature Pulse Respiration Blood pressure 97 degrees 64/minute 20/minute 116/60 Weight Height 82.6 kg 1.55 m Preet Farrar, 10/08/2024 8:39 AM Signed Leidy Blanco is a 69 year old female here for a Medicare wellness visit. Medicare Health Risk Assessment General Health Excellent Exercise: Minutes/Day 30 min Exercise: Days/Week 7 days Alcohol: Daily Use Never Alcohol: Drinks/Day Patient does not drink Alcohol: 6 or more drinks Never Feel off balance No Concerns: Teeth/Dentures No Concerns: Sexual function No Troubled by feelings None of the above Frequency: Eating healthy diet Nearly every day ADLs requiring help None of the above Safety precautions in home/vehicle Yes Smoke, vape, chews tobacco No Difficulty hearing No Difficulty seeing No Current Providers Specialists: I have reviewed specialist-related care of the patient in the medical record. Medical/Family history review Reviewed and updated problem list, medical/surgical/fami ly/social history, medications, and allergies. Opioid use review Opioid Medications (last 90 days) No data to display Anxiety/Depression screening PHQ-2 Score: 0 (Lower risk for depression) Recommendation: no further intervention at this time Cognitive screening Mini Cog Score: 5 Cognitive screening reviewed and No further action needed (score 3-5). Functional Observation Was the patient's Timed Up AND Go test unsteady or >= 12 seconds? No Advance Care Planning Surrogate decision maker and/or advance care plan documented Measurements BP 116/60 Pulse 64 Temp 36.1 ?C (97 ?F) (Left Tympanic) Resp 20 Ht 155 cm (5' 1.02) Wt 82.6 kg (182 lb 1.6 oz) BMI 34.38 kg/m? Vision Screening: Follows with optometry/ophthalmolo gy Assessment/Plan Medicare annual wellness visit, subsequent (Z00.00) - Counseled on healthy diet and regular exercise - Fall avoidance information provided - Personalized prevention plan provided DO Charan Urban Jordan L, DO 10/08/2024 8:39 AM Signed Patient presents with: Medicare Wellness Exam HPI: Leidy Blanco is a 69 year old female who presents to the office today for review of health conditions. Concerns today: She is starting to see Crime Laboratory Analyst for opinion regarding her thyroid and fatigue and weight concerns as well as her type 2 diabetes. She is supposed to have cortisol testing further to determine if any concerns for deficiency Her blood glucose still is running high in the evening at times up to 250s, as low as 150s. In the AM from 150-190s typically. She is using her meter. Her 30 day average is 176. Her 90 day average is 172 She is scheduled to have a vaginal assisted total hysterectomy by Dr. Hall on 12/27 upcoming. Hx of tobacco use disorder, she is now nicotine free for 2 years this month Ms. Blanco has past history of diabetes. Since our last visit she denies excessive thirst or increased frequency of urination, chest pain or dyspnea , new or unusual visual symptoms, and low sugar/hypoglycemic reactions. Depression- no. Follows a diabetic diet most of the time. She is compliant with medication(s) and is tolerating med(s) without any side effects. She reports checking her glucose on a three times a day schedule with sugars in the fasting 170-200s range. Patient's last HgA1C was Hemoglobin A1C (%) Date Value 10/05/2024 7.3 05/17/2024 6.9 11/13/2021 6.3 04/16/2021 6.3 Hemoglobin A1C (POCT) (%) Date Value 01/06/2024 6.5 ) Last Ophthalmology exam was within the past 12 months Ms. Blanco reports history of hyperlipidemia. Current therapy includes atorvastatin (Lipitor) 80 mg. Denies side effects of muscle weakness or achiness. Her most recent lipid panels are reviewed. Cholesterol, Total (mg/dL) Date Value 10/05/2024 122 04/16/2021 193 HDL Cholesterol (mg/dL) Date Value 10/05/2024 65 04/16/2021 58 LDL Cholesterol (mg/dL) Date Value 10/05/2024 36 04/16/2021 91 Triglyceride (mg/dL) Date Value 10/05/2024 105 04/16/2021 222 Ms. Blanco indicates a history of hypertension and states that she is feeling well and denies any symptoms referable to elevated blood pressure. Specifically denies headache, chest pain, palpitations, dyspnea, and peripheral edema. Patient denies any side effects of her medication(s) and is compliant with their regimen. Last 3 Encounter BP Readings: Date: BP: 10/07/2024 116/60 08/11/2024 150/67 06/14/2024 136/70 She watches her diet for sodium, low fat and low cholesterol some of the time. She does not check BP's generally. Leidy gets minimal exercise. PAST MEDICAL HISTORY (more content not included)... Normal [facility] CBC W Auto Differential pane l (Bld)on 10-05-2024 Basophils (Bld) [#/Vol] 0.07 10*3/uL Normal <0.11 [facility] Comment on above: Order Comment: Speci men Type: BLOOD SPECIMENOrdering Facility: [facility] Address: [address] [place] [address] Performed By: #### 5 7021-8 ####[facility] LABCLIA [id number] [place] [address] [place] Basophils/100 WBC (Bld) 0.7 % Normal [facility] Comment on above: Order Comment: Speci men Type: BLOOD SPECIMENOrdering Facility: [facility] Address: [address] [place] [address] Performed By: #### 5 7021-8 ####[facility] LABCLIA [id number] [place] [address] [place] Differential cell count method Nom (Bld) Auto Normal [facility] Comment on above: Order Comment: Speci men Type: BLOOD SPECIMENOrdering Facility: [facility] Address: [address] [place] [address] Performed By: #### 5 7021-8 ####[facility] LABCLIA [id number] [place] [address] [place] Eosinophils (Bld) [#/Vol] 0.21 10*3/uL Normal <0.46 [facility] Comment on above: Order Comment: Speci men Type: BLOOD SPECIMENOrdering Facility: [facility] Address: [address] [place] [address] Performed By: #### 5 7021-8 ####[facility] LABCLIA [id number] [place] [address] [place] Eosinophils/100 WBC (Bld) 2.2 % Normal [facility] Comment on above: Order Comment: Speci men Type: BLOOD SPECIMENOrdering Facility: [facility] Address: [address] [place] [address] Performed By: #### 5 7021-8 ####[facility] LABCLIA [id number] [place] [address] [place] Erythrocyte distribution width (RBC) [Ratio] 12.9 % Normal 11.5-15.0 [facility] Comment on above: Order Comment: Speci men Type: BLOOD SPECIMENOrdering Facility: [facility] Address: [address] [place] [address] Performed By: #### 5 7021-8 ####[facility] LABCLIA [id number] [place] [address] [place] Hematocrit (Bld) [Volume fraction] 39.9 % Normal 36.0-46.0 [facility] Comment on above: Order Comment: Speci men Type: BLOOD SPECIMENOrdering Facility: [facility] Address: [address] [place] [address] Performed By: #### 5 7021-8 ####[facility] LABCLIA [id number] [place] [address] [place] Hemoglobin (Bld) [Mass/Vol] 13.1 g/dL Normal 11.5-15.5 [facility] Comment on above: Order Comment: Speci men Type: BLOOD SPECIMENOrdering Facility: [facility] Address: [address] [place] [address] Performed By: #### 5 7021-8 ####[facility] LABCLIA [id number] [place] [address] [place] Immature granulocytes (Bld) [#/Vol] 0.06 10*3/uL Normal <0.10 [facility] Comment on above: Order Comment: Speci men Type: BLOOD SPECIMENOrdering Facility: [facility] Address: [address] [place] [address] Performed By: #### 5 7021-8 ####[facility] LABCLIA [id number] [place] [address] [place] Immature granulocytes/100 WBC (Bld) 0.6 % Normal [facility] Comment on above: Order Comment: Speci men Type: BLOOD SPECIMENOrdering Facility: [facility] Address: [address] [place] [address] Performed By: #### 5 7021-8 ####[facility] LABCLIA [id number] [place] [address] [place] Lymphocytes (Bld) [#/Vol] 2.55 10*3/uL Normal 1.00-4.00 [facility] Comment on above: Order Comment: Speci men Type: BLOOD SPECIMENOrdering Facility: [facility] Address: [address] [place] [address] Performed By: #### 5 7021-8 ####[facility] LABCLIA [id number] [place] [address] [place] Lymphocytes/100 WBC (Bld) 26.4 % Normal [facility] Comment on above: Order Comment: Speci men Type: BLOOD SPECIMENOrdering Facility: [facility] Address: [address] [place] [address] Performed By: #### 5 7021-8 ####[facility] LABCLIA [id number] [place] [address] [place] MCH (RBC) [Entitic mass] 30.2 pg Normal 26.0-34.0 [facility] Comment on above: Order Comment: Speci men Type: BLOOD SPECIMENOrdering Facility: [facility] Address: [address] [place] [address] Performed By: #### 5 7021-8 ####[facility] LABCLIA [id number] [place] [address] [place] MCHC (RBC) [Mass/Vol] 32.8 g/dL Normal 30.5-36.0 [facility] Comment on above: Order Comment: Speci men Type: BLOOD SPECIMENOrdering Facility: [facility] Address: [address] [place] [address] Performed By: #### 5 7021-8 ####[facility] LABIA [id number] [place] [address] [place] MCV (RBC) [Entitic vol] 91.9 fL Normal 80.0-100.0 [facility] Comment on above: Order Comment: Speci men Type: BLOOD SPECIMENOrdering Facility: [facility] Address: [address] [place] [address] Performed By: #### 5 7021-8 ####[facility] LABIA [id number] [place] [address] [place] Monocytes (Bld) [#/Vol] 0.70 10*3/uL Normal <0.87 [facility] Comment on above: Order Comment: Speci men Type: BLOOD SPECIMENOrdering Facility: [facility] Address: [address] [place] [address] Performed By: #### 5 7021-8 ####[facility] LABIA [id number] [place] [address] [place] Monocytes/100 WBC (Bld) 7.3 % Normal [facility] Comment on above: Order Comment: Speci men Type: BLOOD SPECIMENOrdering Facility: [facility] Address: [address] [place] [address] Performed By: #### 5 7021-8 ####[facility] LABCLIA [id number] [place] [address] [place] Neutrophils (Bld) [#/Vol] 6.06 10*3/uL Normal 1.45-7.50 [facility] Comment on above: Order Comment: Speci men Type: BLOOD SPECIMENOrdering Facility: [facility] Address: [address] [place] [address] Performed By: #### 5 7021-8 ####[facility] LABCLIA [id number] [place] [address] [place] Neutrophils/100 WBC (Bld) 62.8 % Normal [facility] Comment on above: Order Comment: Speci men Type: BLOOD SPECIMENOrdering Facility: [facility] Address: [address] [place] [address] Performed By: #### 5 7021-8 ####[facility] LABCLIA [id number] [place] [address] [place] Nucleated RBC (Bld) [#/Vol] 10*3/uL Normal <0.01 [facility] Comment on above: Order Comment: Speci men Type: BLOOD SPECIMENOrdering Facility: [facility] Address: [address] [place] [address] Performed By: #### 5 7021-8 ####[facility] LABIA [id number] [place] [address] [place] Nucleated RBC/100 WBC (Bld) [Ratio] 0.0 /100 WBC Normal [facility] Comment on above: Order Comment: Speci men Type: BLOOD SPECIMENOrdering Facility: [facility] Address: [address] [place] [address] Performed By: #### 5 7021-8 ####[facility] LABIA [id number] [place] [address] [place] Platelet mean volume (Bld) [Entitic vol] 10.0 fL Normal 9.0-12.7 [facility] Comment on above: Order Comment: Speci men Type: BLOOD SPECIMENOrdering Facility: [facility] Address: [address] [place] [address] Performed By: #### 5 7021-8 ####[facility] LABCLIA [id number] [place] [address] [place] Platelets (Bld) [#/Vol] 327 10*3/uL Normal 150-400 [facility] Comment on above: Order Comment: Speci men Type: BLOOD SPECIMENOrdering Facility: [facility] Address: [address] [place] [address] Performed By: #### 5 7021-8 ####[facility] LABCLIA [id number] [address] [address] [place] RBC (Bld) [#/Vol] 4.34 10*6/uL Normal 3.90-5.20 [facility] Comment on above: Order Comment: Speci men Type: BLOOD SPECIMENOrdering Facility: [facility] Address: [address] [place] [address] Performed By: #### 5 7021-8 ####[facility] LABCLIA [id number] [place] [address] [place] WBC (Bld) [#/Vol] 9.65 10*3/uL Normal 3.70-11.00 [facility] Comment on above: Order Comment: Speci men Type: BLOOD SPECIMENOrdering Facility: [facility] Address: [address] [place] [address] Performed By: #### 5 7021-8 ####[facility] LABCLIA [id number] [place] [address] [place] Comprehensive metabolic 2000 panelon 10-05-2024 Albumin [Mass/Vol] 3.9 g/dL Normal 3.9-4.9 [facility] Comment on above: Order Comment: Speci men Type: BLOOD SPECIMENOrdering Facility: [facility] Address: [address] [place] [address] Performed By: #### 2 4331-1, 3051-0, 3024-7, 11701-4 ####[facility] LABCLIA [id number] [place] [id number] [place] ALP [Catalytic activity/Vol] 92 U/L Normal 34-123 [facility] Comment on above: Order Comment: Speci men Type: BLOOD SPECIMENOrdering Facility: [facility] Address: [address] [place] [address] Performed By: #### 2 4331-1, 3051-0, 7, 68084-0 ####[facility] LABCLIA [id number] [address] [address] [place] ALT [Catalytic activity/Vol] 15 U/L Normal 7-38 [facility] Comment on above: Order Comment: Speci men Type: BLOOD SPECIMENOrdering Facility: [facility] Address: [address] [place] [address] Performed By: #### 2 4331-1, 3051-0, 7, 57542-1 ####[facility] LABIA [id number] [place] [address] [place] Anion gap [Moles/Vol] 11 mmol/L Normal 8-15 [facility] Comment on above: Order Comment: Speci men Type: BLOOD SPECIMENOrdering Facility: [facility] Address: [address] [place] [address] Performed By: #### 2 4331-1, 305-0, 3024-03, ####[facility] LABIA [id number] [address] [address] [place] AST [Catalytic activity/Vol] 18 U/L Normal 13-35 [facility] Comment on above: Order Comment: Speci men Type: BLOOD SPECIMENOrdering Facility: [facility] Address: [address] [place] [address] Performed By: #### 2 4331-1, 305-0, 7, ####[facility] LABCLIA [id number] [address] [address] [place] Bilirubin [Mass/Vol] 0.4 mg/dL Normal 0.2-1.3 [facility] Comment on above: Order Comment: Speci men Type: BLOOD SPECIMENOrdering Facility: [facility] Address: [address] [place] [address] Performed By: #### 2 4331-1, 305-0, 7, 56931-3 ####[facility] LABCLIA [id number] [address] [address] [place] Calcium [Mass/Vol] 9.6 mg/dL Normal 8.5-10.2 [facility] Comment on above: Order Comment: Speci men Type: BLOOD SPECIMENOrdering Facility: [facility] Address: [address] [place] [address] Performed By: #### 2 4331-1, 305-0, 7, ####[facility] LABIA [id number] [place] [address] [place] Chloride [Moles/Vol] 104 mmol/L Normal 98-107 [facility] Comment on above: Order Comment: Speci men Type: BLOOD SPECIMENOrdering Facility: [facility] Address: [address] [place] [address] Performed By: #### 2 4331-1, 305-0, 7, ####[facility] LABIA [id number] [place] [address] [place] CO2 [Moles/Vol] 23 mmol/L Normal 22-30 [facility] Comment on above: Order Comment: Speci men Type: BLOOD SPECIMENOrdering Facility: [facility] Address: [address] [place], [place] [address] Performed By: #### 2 4331-1, 305-0, 7, 16144-7 ####[facility] LABCLIA [id number] [address] [address] [place] Creatinine [Mass/Vol] 0.64 mg/dL Normal 0.58-0.96 [facility] Comment on above: Order Comment: Speci men Type: BLOOD SPECIMENOrdering Facility: [facility] Address: [address] [place] [address] Performed By: #### 2 4331-1, 3051-0, 3024-7, 91572-8 ####[facility] LABIA [id number] [place] [id number] [place] Creatinine and Glomerular filtration rate.predicted panel (S/P/Bld) 96 mL/min/1.73m??? Normal >=60 [facility] Comment on above: Order Comment: Abimbola emily Type: BLOOD SPECIMENOrdering Facility: [facility] Address: [address] [place] [address] Result Comment: Ana Paula mated Glomerular Filtration [...] reflect actual GFR. Performed By: #### 2 4331-1, 3051-0, 3024-7, 10526-5 ####[facility] LABCLIA [id number] [place] [id number] [place] Glucose [Mass/Vol] 170 mg/dL High 74-99 [facility] Comment on above: Order Comment: Abimbola diaz Type: BLOOD SPECIMENOrdering Facility: [facility] Address: [address] [place] [address] Result Comment: The [place] Diabetes Association (ADA) provides guidance for cutoff [...] Standards of Medical Care in Diabetes 2016, [place] [employer]. Diabetes Care. 2016.39(Suppl 1). Performed By: #### 2 4331-1, 3051-0, 7, ####[facility] LABCLIA [id number] [address] [address] [place] Potassium [Moles/Vol] 4.4 mmol/L Normal 3.7-5.1 [facility] Comment on above: Order Comment: Speci men Type: BLOOD SPECIMENOrdering Facility: [facility] Address: [address] [place] [address] Performed By: #### 2 4331-1, 305-0, 7, ####[facility] LABCLIA [id number] [place] [address] [place] Protein [Mass/Vol] 6.8 g/dL Normal 6.3-8.0 [facility] Comment on above: Order Comment: Speci men Type: BLOOD SPECIMENOrdering Facility: [facility] Address: [address] [place] [address] Performed By: #### 2 4331-1, 305-0, 3024-03, ####[facility] LABIA [id number] [place] [id number] [place] Sodium [Moles/Vol] 138 mmol/L Normal 136-144 [facility] Comment on above: Order Comment: Speci men Type: BLOOD SPECIMENOrdering Facility: [facility] Address: [address] [place] [address] Performed By: #### 2 4331-1, 3050-0, 3024-03, ####[facility] LABCLIA [id number] [address] [address] [place] Urea nitrogen [Mass/Vol] 15 mg/dL Normal 7-21 [facility] Comment on above: Order Comment: Speci men Type: BLOOD SPECIMENOrdering Facility: [facility] Address: [address] [place] [address] Performed By: #### 2 4331-1, 3051-0, 3024-7, 07655-6 ####[facility] LABCLIA [id number] [address] OF [place] HbA1c (Bld)on 10-05-2024 Average glucose Estimated from glycated hemoglobin (Bld) [Mass/Vol] 163 mg/dL Normal [facility] Comment on above: Order Comment: Abimbola diaz Type: BLOOD SPECIMENOrdering Facility: [facility] Address: [address] [place] [address] Result Comment: eAG: (Estimated average glucose) is a calculated value from HgbA1c and is medical office representative of the average blood glucose level in the last 2-3 month period. Performed By: #### 5 5454-3 ####[facility] LABIA [id number] [place] [address] [place] [facility] HbA1c (Bld) [Mass fraction] 7.3 % High 4.3-5.6 [facility] Comment on above: Order Comment: Abimbola diaz Type: BLOOD SPECIMENOrdering Facility: [facility] Address: [address] [place] [address] Result Comment: [place] Diabetes Association guidelines indicate that patients with HgbA1c in the range 5.7-6.4% are at increased risk for development of diabetes, and intervention by lifestyle modification may be beneficial. HgbA1c greater or equal to 6.5% is considered diagnostic of diabetes. Performed By: #### 5 5454-3 ####[facility] LABIA [id number] [place] [address] [place] Lipid 1996 panelon Cholesterol [Mass/Vol] 122 mg/dL Normal <200 [facility] Comment on above: Order Comment: Abimbola emily Type: BLOOD SPECIMENOrdering Facility: [facility] Address: [address] [place] [address] Result Comment: <200 mg/dL, Desirable 200-239 mg/dL, Borderline high >239 mg/dL, High Performed By: #### 2 4331-1, 3051-0, 3024-7, 68755-8 ####[facility] LABCLIA [id number] [id number] [place] [address] [place] Cholesterol in HDL [Mass/Vol] 65 mg/dL Normal >39 [facility] Comment on above: Order Comment: Abimbola men Type: BLOOD SPECIMENOrdering Facility: [facility] Address: [address] [place] [address] Result Comment: 40-5 9 mg/dL, Acceptable >59 mg/dL, High: Negative risk factor for coronary heart disease <40 mg/dL, Low: Positive risk factor for coronary heart disease Performed By: #### 2 4331-1, 3051-0, 3024-7, 75253-9 ####[facility] LABCLIA [id number] [address] STATES [facility] Cholesterol in LDL [Mass/Vol] 36 mg/dL Normal <100 [facility] Comment on above: Order Comment: Abimbola diaz Type: BLOOD SPECIMENOrdering Facility: [facility] Address: [address] [place] [address] Result Comment: <100 mg/dL, Optimal 100-129 mg/dL, Near optimal/above optimal 130-159 mg/dL, Borderline high 160-189 mg/dL, High >189 mg/dL, Very high Secondary prevention optimal LDL Cholesterol levels are recommended to be < 70 mg/dL Performed By: #### 2 4331-1, 3051-0, 3024-7, 73138-9 ####[facility] LABCLIA [id number] [address] [place] Cholesterol in LDL/Cholesterol in HDL [Mass ratio] 0.55 {ratio} Normal <2.54 [facility] Comment on above: Order Comment: Abimbola men Type: BLOOD SPECIMENOrdering Facility: [facility] Address: [address] [place] [address] Result Comment: Kyra glover: 1. National Cholesterol Education Program ATP III Guideline At-A-Glance Quick Desk Reference: National Heart, Lung, and Blood [place]. National Institutes of Health. 2001: NIH Publication No. 01-3305. 2. An International Atherosclerosis Society position paper: global recommendations for the management of dyslipidemia: executive summary, Atherosclerosis. 2014: 232(2):410-413. Performed By: #### 2 4331-1, 3051-0, 302-7, 95392-5 ####[facility] LABCLIA [id number] [place] [address] [place] Cholesterol in VLDL [Mass/Vol] 21 mg/dL Normal <30 [facility] Comment on above: Order Comment: Speci men Type: BLOOD SPECIMENOrdering Facility: [facility] Address: [facility] [place] [address] Performed By: #### 2 4331-1, 3051-0, 3023-7, 76369-4 ####[facility] LABIA [id number] [place] [address] [place] Cholesterol non HDL [Mass/Vol] 57 mg/dL Normal <130 [facility] Comment on above: Order Comment: Speci men Type: BLOOD SPECIMENOrdering Facility: [facility] Address: [address] [place] [address] Result Comment: <130 mg/dL, Optimal 130-159 mg/dL, Near optimal/above optimal 160-189 mg/dL, Borderline high 190-219 mg/dL, High >219 mg/dL, Very high Secondary prevention optimal non HDL Cholesterol levels are recommended to be <100 mg/dL Performed By: #### 2 4331-1, 3051-0, 302-7, 56809-2 ####[facility] LABCLIA [id number] [address] [address] [place] Cholesterol.total/Mary sterol in HDL [Mass ratio] 1.88 {ratio} Normal <5.10 [facility] Comment on above: Order Comment: Speci men Type: BLOOD SPECIMENOrdering Facility: [facility] Address: [address] [place] [address] Performed By: #### 2 4331-1, 305-0, 7, ####[facility] LABCLIA [id number] [address] [address] [place] FASTING TIME 10 hrs Normal [facility] Comment on above: Order Comment: Speci men Type: BLOOD SPECIMENOrdering Facility: [facility] Address: [address] [place] [address] Performed By: #### 2 4331-1, 305-0, 7, ####[facility] LABCLIA [id number] [address] [address] [place] [facility] Triglyceride [Mass/Vol] 105 mg/dL Normal <150 [facility] Comment on above: Order Comment: Speci men Type: BLOOD SPECIMENOrdering Facility: [facility] Address: [address] [place] [address] Result Comment: <150 mg/dL, Normal 150-199 mg/dL, Borderline high 200-499 mg/dL, High >499 mg/dL, Very high Performed By: #### 2 4331-1, 305-0, 7, ####[facility] LABCLIA [id number] [address] [address] [place] T3Free [facility]19 25 Free T3 [Mass/Vol] 2.5 pg/mL Normal 2.3-4.1 [facility] Comment on above: Order Comment: Speci men Type: BLOOD SPECIMENOrdering Facility: [facility] Address: [address] [place], [place] [address] Performed By: #### 2 4331-1, 3051-0, 7, 37141-0 ####[facility] LABCLIA [id number] [address] [address] [place] T4 Free SerPl-mCncon 025 Free T4 [Mass/Vol] 0.7 ng/dL Low 0.9-1.7 [facility] Comment on above: Order Comment: Speci men Type: BLOOD SPECIMENOrdering Facility: [facility] Address: [address] [place] [address] Performed By: #### 2 4331-1, 3051-0, 3024-7, 87155-9 ####[facility] LABCLIA [id number] [address] [place] TSH SerPl-aCncon 10-05-2024 TSH Qn 1.550 m[IU]/L Normal 0.270-4.200 [facility] Comment on above: Order Comment: Speci men Type: BLOOD SPECIMENOrdering Facility: [facility] Address: [address] [place] [address] Performed By: #### 3 016-3 ####[facility] LABIA [id number] [address] [place] CNPNon 10-04-2024 CNPN Telephone ([facility]) LEIDY BLANCO ([id number]) 1955 F Date Time Provider Department 10/04/24 PREET FARRAR [facility] During your visit today, we recorded the following information about you: Maegan Winters 10/04/2024 7:31 AM Signed Pt came in requesting lab work prior to her 10/07 tex, pt wants routine labs and her thyroid checked Thank you ! Donna Kimble MA 10/04/2024 7:49 AM Signed Please see patient request she had blood work done 05/21 DonnaLANDEN Nazario Bernadette, PA-C 10/04/2024 9:00 AM Signed Labs ordered Marika Carolina PA-C 10/04/2024 Sahara Mejia LPN 10/04/2024 9:29 AM Signed Pt. informed. Allergies As of Date: 10/04/2024 Noted Allergy Reaction ASA (SALICYLATES) 01/05/2006 4 - Hives 8 - GI Upset Comments: As a child GLUTEN 10/17/2016 5 - Intolerance METFORMIN 8 - GI Upset 9 - Itching PREDNISONE 10/02/2012 9 - Itching SULFA (SULFONAMIDE ANTIBIOTICS) 12/29/2005 2 - Rash Date Reviewed: 08/11/2024 Reviewed by: Madie Bruce MA - Fully Assessed Primary Visit Diagnosis:Hyperlipide kimberly, mixed [E78.2] Other Visit Diagnoses:Hypothyroid ism, unspecified type [E03.9] 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, without long-term current use of insulin (HCC) [E08.69] Order(s):THYROID STIMULATING HORMONE [SQTSH] Order #: [id number] FUTURE LIPID PANEL BASIC [SQLIPB] Order #: [id number] FUTURE COMPREHENSIVE METABOLIC PANEL [SQCMP] Order #: [id number] FUTURE HEMOGLOBIN A1C [XYTPX5K] Order #: [id number] FUTURE COMPLETE BLOOD COUNT AND DIFFERENTIAL [SQCBCDIF] Order #: [id number] FUTURE T3, FREE [SQFREET3] Order #: [id number] FUTURE T4 FREE/FREE THYROXINE [SQFT4] Order #: [id number] FUTURE Prescriptions as of 10/04/2024 - glimepiride (AMARYL) 2 mg tablet Take 1 tablet by mouth two times a day with meals. - pantoprazole DR (PROTONIX) 40 mg tablet Take 1 tablet by mouth once daily. - ARMOUR THYROID 120 mg tablet Take 1 tablet PO daily in AM - SITagliptin phosphate (JANUVIA) 100 mg tablet Take 1 tablet by mouth once daily. - blood sugar diagnostic (ONETOUCH VERIO TEST STRIPS) test strip Test blood sugar(s) 4 times daily. Dx: Type 2 DM - Uncontrolled E11.65 Insulin: Yes - dexAMETHasone (DECADRON) 1 mg tablet Take the tablet at 11 pm and go for labs the next morning on fasting at 8 am - Insulin [place], Disposable, (BD ULTRA-FINE MARIA T PEN NEEDLE) [...] by mouth two times a week. - blood sugar diagnostic (BLOOD [...] Insulin: No Problem List As Of Date 10/04/2024 Noted Resolved Diabetes mellitus type 2, controlled, [...] Uncontrolled hypertension [I10] 02/19/2022 Vitamin B12 deficiency [E (more content not included)... Normal [facility] Lna Office Visit Reporton 09-13-2024 Lna Office Visit Report Normal [facility] LEID[facility]ANCO ([id number]) 1955 F Date Time Provider Department 09/12/24 [facility] During your visit today, we recorded the following information about you: Sahara Mejia LPN 09/12/2024 1:20 PM Signed Pt. dropped of glucose numbers for Dr. Farrar to review. Preet Farrar DO 09/13/2024 4:24 PM Signed Jerry Farrar DO Allergies As of Date: 09/12/2024 Noted Allergy Reaction ASA (SALICYLATES) 01/05/2006 4 - Hives 8 - GI Upset Comments: As a child GLUTEN 10/17/2016 5 - Intolerance METFORMIN 8 - GI Upset 9 - Itching PREDNISONE 10/02/2012 9 - Itching SULFA (SULFONAMIDE ANTIBIOTICS) 12/29/2005 2 - Rash Date Reviewed: 08/11/2024 Reviewed by: Madie Bruce MA - Fully Assessed Reason for Visit: Results [95] Prescriptions as of 10/04/2024 - glimepiride (AMARYL) 2 mg tablet Take 1 tablet by mouth two times a day with meals. - pantoprazole DR (PROTONIX) 40 mg tablet Take 1 tablet by mouth once daily. - ARMOUR THYROID 120 mg tablet Take 1 tablet PO daily in AM - SITagliptin phosphate (JANUVIA) 100 mg tablet Take 1 tablet by mouth once daily. - blood sugar diagnostic (ONEDianDianUCH VERIO TEST STRIPS) test strip Test blood sugar(s) 4 times daily. Dx: Type 2 DM - Uncontrolled E11.65 Insulin: Yes - dexAMETHasone (DECADRON) 1 mg tablet Take the tablet at 11 pm and go for labs the next morning on fasting at 8 am - Insulin [place], Disposable, (BD ULTRA-FINE MARIA T PEN NEEDLE) [...] by mouth two times a week. - blood sugar diagnostic (BLOOD [...] Insulin: No Problem List As Of Date 09/12/2024 Noted Resolved Diabetes mellitus type 2, controlled, [...] BMI 30-34.9 [E66.811] 03/23/2024 Encounter Status:Closed by SAHARA MEJIA LPN on 10/04/24 Normal [facility] Carotid Duplex Ultrasoundon 09-06-2024 Carotid Duplex Ultrasound Normal [facility] Renal Artery Duplex Ultrasou ndon 09-06-2024 Renal Artery Duplex Ultrasound Normal [facility] 12 Lead EKG performed by BMS on 08-17-2024 12 Lead EKG performed by BMS Normal [facility] Cardiology Visit Reporton Cardiology Visit Report Normal [facility] CNOVon 08-11-2024 CNOV Office Visit (ENWSTR ) FRANCISLEIDY G ([id number]) 1955 F Date Time Provider Department 08/11/24 9:40 AM BEAN ISAAC ENWSTR During your visit today, we recorded the following information about you: Temperature Pulse Blood pressure Weight 98.2 degrees 69/minute 150/67 82.6 kg Bean Isaac MD 08/11/2024 6:10 PM Signed [facility] Follow up note Referred by: PCP- Preet Farrar DO History of Present illness: Leidy March Francis is a 68 year old female here [...] Yes Retinopathy -- No Last JUAN/Retina Eval: last month Nephropathy -- Yes NICOLE/ARB Use -- [...] past . Diabetes Medications -Current regimen: lantus 18 units daily in the morning (started using insulin in March 2024, increased to 18 units 2 weeks ago), Sitagliptin 100 mg daily, glimepiride 2 mg daily (she increased by half pil 2 weeks ago) -Misses doses: None -Adverse medication effects: no -Rotating injection sites: yes -Previously Used DM Meds: Yes Metformin - GI upset Jardiance- Yeast infection She was on Ozempic 1 mg for more than 1 year, when it was increased to 2 mg she was hospitalized due to vomiting, diarrhea and was diagnosed with Gastroparesis assumed to be due to the medication . Blood sugars -Self monitoring of blood sugar via fingerstick: 4 x daily Insurance did not approve CGM. She did not bring her log -Brought blood glucose log for review: No -BG log reviewed: --Fastins-170s, but this morning was 124 mg/dl --Prelunch: 110-150 --Predinner: 120s-140s --Bedtime: 150s-170s Hypoglycemia -Hypoglycemic episodes: denied any lows, lower than 89 -Frequency and timing of hypoglycemia: n/a -Hypoglycemia awareness: n/a Concerns reported today: She denied any hyperglycemic symptoms today. After I told about side effect of weight gain with glimepiride and insulin dose increase, she does report gaining about 5 to 6 lbs in the last 2 weeks after increase glimepiride by 1/2 pill . Lifestyle -Exercise: 30 mins on Frengo daily -Diet: Breakfast: 3 eggs, 1 slice [...] CARDIOVASCULAR: Chest pain, palpitations, irregular heart beats GASTRO-INTESTINAL:Den ies Nausea, vomiting, abdominal pain, hyperdefecation, rectal bleeding NEUROLOGICAL: Denies dizziness, lightheadedness, weakness, cramping, numbness/tingling of extremities MUSCULOSKELETAL: Denies joint pain, stiffness, swelling, cramping or weakness. GENITOURINARY: Denies polyuria, recurrent UTI/yeast infections SKIN: Denies dryness, brittle nails, hair loss, alopecia, excessive sweating, flushing, darkening of skin PSYCHIATRIC: Denies anxiety, depression, panic attacks, irritability, mood swings Past Medical History PAST MEDICAL HISTORY Diagnosis Date Aortic stenosis, moderate 08/2019 Benign hypertensive heart disease Celiac disease Diabetes mellitus without mention of complication Diabetes mellitus Fatty liver Grave's disease IBS (irritable bowel syndrome) Medical marijuana use has card Ulcerative colitis, unspecified Vitamin D de (more content not included)... Normal [facility] Lna Office Visit Reporton 08-10-2024 Lna Office Visit Report Normal [facility] Bedside Glucoseon 07-26-2024 FINGERSTICK GLU 171 mg/dL High 74-106 [facility] Comment on above: Result Comment: CARIN DYER OF PATIENT CARE PER NURSING PROTOCOL Performed By: #### L 501.080 ####[facility] [address] [place], [address] Discharge Instructionon 06-29 Discharge Instruction Normal [facility] MR/POSTOP.ANEon 07-26-2024 MR/POSTOP.ANE Normal [facility] MR/HMMOJMVU0le 07-26-2024 MR/POSTOPAN2 Normal [facility] Operative Reporton Operative Report Normal [facility] Surgery Specimen Level Adonis 07-26-2024 Surgery Specimen Level IV Normal [facility] Comment on above: Performed By: #### P SUIV ####[facility] [address] [place], [address] 12 Lead EKGon 07-21-2024 12 Lead EKG Normal [facility] Comprehensive Metabolic Prof ilon 07-21-2024 Albumin [Mass/Vol] 3.5 g/dL Normal 3.2-5.0 [facility] Comment on above: Performed By: #### B TSPAT, L500.4050, L501.9520, L501.9985 ####[facility] [address] [place], [address] Albumin/Globulin [Mass ratio] 1.0 {ratio} Normal 0.9-2.4 [facility] Comment on above: Performed By: #### B TSPAT, L500.4050, L501.9520, L501.9985 ####[facility] [address] [place], [address] ALK P 88 U/L Normal 45-117 [facility] Comment on above: Performed By: #### B TSPAT, L500.4050, L501.9520, L501.9985 ####[facility] [address] [place], [address] ALT [Catalytic activity/Vol] 18 U/L Normal 13-56 [facility] Comment on above: Performed By: #### B TSPAT, L500.4050, L501.9520, L501.9985 ####[facility] [address] [place], [address] AST [Catalytic activity/Vol] 13 U/L Low 15-37 [facility] Comment on above: Performed By: #### B TSPAT, L500.4050, L501.9520, L501.9985 ####[facility] [address] [place], [address] Bilirubin [Mass/Vol] 0.60 mg/dL Normal 0.20-1.00 [facility] Comment on above: Result Comment: For patients on eltrombopag therapy, use of Dimension [place] TBIL is not recommended. Performed By: #### B TSPAT, L500.4050, L501.9520, L501.9985 ####[facility] [address] [place], [address] BUN/CRE 26.9 RATIO High 10-20 [facility] Comment on above: Performed By: #### B TSPAT, L500.4050, L501.9520, L501.9985 ####[facility] [address] [place], [address] CA,Total 9.5 mg/dL Normal 8.5-10.1 [facility] Comment on above: Performed By: #### B TSPAT, L500.4050, L501.9520, L501.9985 ####[facility] [address] [place], [address] Chloride [Moles/Vol] 106 mmol/L Normal 98-107 [facility] Comment on above: Performed By: #### B TSPAT, L500.4050, L501.9520, L501.9985 ####[facility] [address] [place], [address] CO2 [Moles/Vol] 25.0 mmol/L Normal 21.0-32.0 [facility] Comment on above: Performed By: #### B TSPAT, L500.4050, L501.9520, L501.9985 ####[facility] [address] [place], [address] Creatinine [Mass/Vol] 0.71 mg/dL Normal 0.55-1.02 [facility] Comment on above: Result Comment: The validity of the calculated GFR GFRAA in patients over70 years has not been determined. Clinical correlation isessential. Performed By: #### B TSPAT, L500.4050, L501.9520, L501.9985 ####[facility] [address] [place], [address] EST GFR - AA 106 mL/min Normal >60 [facility] Comment on above: Result Comment: Afri can Nepalese GFR Calc Performed By: #### B TSPAT, L500.4050, L501.9520, L501.9985 ####[facility] [address] [place], [address] GAP 5 Normal 5-15 [facility] Comment on above: Performed By: #### B TSPAT, L500.4050, L501.9520, L501.9985 ####[facility] [address] [place], [address] GFR/1.73 sq M.predicted among non-blacks MDRD (S/P/Bld) [Vol rate/Area] 87 mL/min/{1.73_m2} Normal >60 [facility] Comment on above: Result Comment: Non- GFR Calc Performed By: #### B TSPAT, L500.4050, L501.9520, L501.9985 ####[facility] [address] [place], [address] Globulin (S) [Mass/Vol] 3.6 g/dL Normal 2.2-4.2 [facility] Comment on above: Performed By: #### B TSPAT, L500.4050, L501.9520, L501.9985 ####[facility] [address] [place], [address] Glucose [Mass/Vol] 191 mg/dL High 74-106 [facility] Comment on above: Result Comment: Fast ing Glucose result greater than or equal to 126 mg/dLsuggests DIABETES MELLITUS per A.D.A. criteria. Performed By: #### B TSPAT, L500.4050, L501.9520, L501.9985 ####[facility] [address] [place], [address] Potassium [Moles/Vol] 4.0 mmol/L Normal 3.5-5.1 [facility] Comment on above: Performed By: #### B TSPAT, L500.4050, L501.9520, L501.9985 ####[facility] [address] [place], [address] Sodium [Moles/Vol] 136 mmol/L Normal 136-145 [facility] Comment on above: Performed By: #### B TSPAT, L500.4050, L501.9520, L501.9985 ####[facility] [address] [place], [address] T PROT 7.1 g/dL Normal 6.4-8.2 [facility] Comment on above: Performed By: #### B TSPAT, L500.4050, L501.9520, L501.9985 ####[facility] [address] [place], [address] Urea nitrogen [Mass/Vol] 19 mg/dL High 7-18 [facility] Comment on above: Performed By: #### B TSPAT, L500.4050, L501.9520, L501.9985 ####[facility] [address] [place], [address] Hemoglobin A1con 07-21-2024 HbA1c (Bld) [Mass fraction] 7.2 % High 3.8-5.6 [facility] Comment on above: Result Comment: Norm al < 5.7 % Prediabetic 5.7 - 6.4 % Diabetic >or= 6.5 % Please note range changes. Performed By: #### B TSPAT, L500.4050, L501.9520, L501.9985 ####[facility] [address] [place], [address] Thyroid Stim Hormone (TSH)on 07-21-2024 TSH 0.143 uIU/mL Low 0.358-3.740 [facility] Comment on above: Performed By: #### B TSPAT, L500.4050, L501.9520, L501.9985 ####[facility] [address] [place], [address] Type AND Screen - PAT ONLYon 07-21-2024 ABO and Rh group Nom (Bld) Blood group A Rh(D) positive Normal [facility] Comment on above: Order Comment: Reaso n for Laboratory Test [id number] D C Performed By: #### B TSPAT, L500.4050, L501.9520, L501.9985 ####[facility] [address] [place], [place], [address] CNPNon 07-20-[address] [facility] Telephone (FAMWS) LEIDY BLANCO ([id number]) 1955 F Date Time Provider Department 07/20/24 PREET FARRAR [facility] During your visit today, we recorded the [...] - Rash Date Reviewed: 06/14/2024 Reviewed by: Sahara Mejia LPN - Fully Assessed Prescriptions as of 07/21/2024 - pantoprazole DR (PROTONIX) 40 mg tablet Take 1 tablet by mouth once daily. - Insulin [place], Disposable, (BD ULTRA-FINE MARIA T PEN NEEDLE) 32 gauge x 5/32 Use one needle for each dose. 1/day. [...] Encounter Status:Closed by LISA APARICIO on [facility]/21/24 [facility] (FAMPWS) LEIDY BLANCO ([id number]) 1955 F Date Time Provider Department 07/19/24 PREET FARRAR [facility] During your visit today, we recorded the following information about you: Annmarie Canada RN 07/19/2024 11:34 AM Signed Lali with [facility] called in and reports she had faxed over the surgical clearance form on 07/15/24. I let them know it wasn't charted that they had received it, so she is going to send it again. Pt is going to have a DNC on 07/26/24, please fill out and fax back. Faxed recent thyroid labs and labs from April to [phone]. Let them know the other recent labs were external, and they would have to get them from [facility]. Sahara Mejia LPN 07/19/2024 4:31 PM Signed Form on Dr. Farrar's desk Chelo Prasad RN 07/25/2024 10:49 AM Signed Lali at [facility] called again regarding this pt. Pt is to have procedure tomorrow and they are asking if Dr. Farrar's office received surgical clearance forms last week-they are in need of them being completed. Asking if someone can call them today with an update on the forms. Call Lali at [phone]. OLVIN Mujica Susan LPN 07/25/2024 10:55 AM [...] - Rash Date Reviewed: 06/14/2024 Reviewed by: Sahara Mejia LPN - Fully Assessed Reason for Visit: Faxed Labs [Other] Surgical Clearance Forms [Other] Prescriptions as of 07/25/2024 - pantoprazole DR (PROTONIX) 40 mg tablet Take 1 tablet by mouth once daily. - Insulin [place], Disposable, (BD ULTRA-FINE MARIA T PEN NEEDLE) 32 gauge x 32 Use one needle for each dose. 1/day. [...] daily. Dx: Type 2 DM - Uncontrolled E1165 Insulin: No - spironolactone (ALDACTONE) 25 mg [...] Type 2 DM - Uncontrolled Insulin: No Problem List As Of Date [...] Diabetes mellit (more content not included)... Normal [facility] Lna Office Visit Reporton 07-19-2024 Lna Office Visit Report Normal [facility] CNPNon 07-15-2024 CNPN Telephone (FAMPWS) LEIDY BLANCO ([id number]) 1955 F Date Time Provider Department 07/15/24 [facility] During your visit today, we recorded the following information about you: Sahara Mejia LPN 07/15/2024 10:57 AM Signed Blood Sugar results brought in by patient.Placed on Dr. Farrar desevaristo. Lisa Aparicio, OLVIN 07/21/2024 8:23 AM Signed [...] is having DNC done on 07/26/2024. [facility] had faxed over surgical clearance form on 07/19/2024. This is on provider's desk. Patient is very worried about her blood sugars. Preet Farrar, 07/23/2024 11:33 AM Signed Does she need [...] - Rash Date Reviewed: 06/14/2024 Reviewed by: Sahara Mejia LPN - Fully Assessed Reason for Visit: Results [95] Prescriptions as of 07/25/2024 - pantoprazole DR (PROTONIX) 40 mg tablet Take 1 tablet by mouth once daily. - Insulin [place], Disposable, (BD ULTRA-FINE MARIA T PEN NEEDLE) 32 gauge x 5/32 Use one needle for each dose. 1/day. [...] [E55.9] 09/10 (more content not included)... Normal [facility] T3Free SerPl-mCncon 07-15-20 24 Free T3 [Mass/Vol] 5.0 pg/mL High 2.3-4.1 [facility] Comment on above: Order Comment: Speci men Type: BLOOD SPECIMENOrdering Facility: [facility] Address: [address] [place] [address] Performed By: #### 3 016-3, 0, 3024-03 ####[facility] LABIA [id number] [place] [address] [place] T4 Free SerPl-mCncon 024 Free T4 [Mass/Vol] 0.9 ng/dL Normal 0.9-1.7 [facility] Comment on above: Order Comment: Speci men Type: BLOOD SPECIMENOrdering Facility: [facility] Address: [address] [place] [address] Performed By: #### 3 016-3, 0, 3024-03 ####[facility] LABIA [id number] [place] [address] [place] TSH SerPl-aCncon 07-15-2024 TSH Qn 0.218 m[IU]/L Low 0.270-4.200 [facility] Comment on above: Order Comment: Speci men Type: BLOOD SPECIMENOrdering Facility: [facility] Address: [address] [place] [address] Performed By: #### 3 016-3, 0, 3024-03 ####[facility] LABIA [id number] [place] [address] [place] Lna Office Visit Reporton 07-07-2024 Lna Office Visit Report Normal [facility] CNOVon 06-14-2024 CNOV Office Visit (FAMPWS ) LEIDY BLANCO ([id number]) 1955 F Date Time Provider Department 06/14/24 2:20 PM PREET FARRAR FAMPWS During your visit today, we recorded the following information about you: Temperature Pulse Respiration Blood pressure 98 degrees 76/minute 16/minute 136/70 Weight 78 kg Preet Farrar, DO 06/14/2024 4:37 PM Signed Patient presents with: F/U 3 Month HPI: Leidy Blanco is a 68 year old female [...] thickened endometrial lining. Has been seen by [facility]PING [facility]IST[facility] and had EMB and will be having a consult with Dr. Froylan Farnsworth SHIPPING ASSISTANT on 07/07 to potentially schedule MEREDITH. She [...] time. She does not check BP's generally. Leidy gets sporadic irregular exercise. PAST MEDICAL HISTORY Diagnosis Date Aortic stenosis, moderate 08/2019 Benign hypertensive heart disease Celiac disease Diabetes mellitus without mention of complication Diabetes mellitus Fatty liver Grave's disease IBS (irritable bowel syndrome) Medical marijuana use has card Ulcerative colitis, unspecified Vitamin D deficiency PAST SURGICAL HISTORY Procedure Laterality Date COLONOSCOPY FLX DX W/COLLJ SPEC WHEN PFRMD 09/09/2013 Colonoscopy ESOPHAGOGASTRODUODENO SCOPY TRANSORAL DIAGNOSTIC 09/09/2013 EGD INFUSE RADIOACTIVE MATERIALS [...] 1 tablet by mouth once daily. Insulin [place], Disposable, (PEN NEEDLE) 29 ga (more content not included)... Normal [facility] Calprotectin, Stoolon [address] 186 ug/g Abnormal 0-120 [facility] Comment on above: Result Comment: Conc entration Interpretation Follow-Up< 5 - 50 ug/g Normal None>50 -120 ug/g Borderline Re-evaluate in 4-6 weeks >120 ug/g Abnormal Repeat as clinically indicatedPerformed at: [facility] [id number] Director: Chung Campbell MD, Phone: [phone] Performed By: #### M 100.0605, L7000.0750, L7000.0700 ####[facility] [address] [place], [place], [address] L7000.0750on 06-13-2024 P ELASTASE,FECA 534 Normal >200 [facility] Comment on above: Result Comment: Resu lt Units: ug Elast./g Severe Pancreatic Insufficiency: <100 Moderate Pancreatic Insufficiency: 100 - 200 Normal: >200Performed at: [facility] [id number] Director: Chung Campbell MD, Phone: [phone] Performed By: #### M 100.0605, L7000.0750, L7000.0700 ####[facility] [address] [place], [address] L2100.0000on 06-09-2024 ACCA 16 units Normal 0-90 [facility] Comment on above: Result Comment: Nega tive: <80 Equivocal: 80-90 Positive: >90 Performed By: #### L 100.0100, L2100.0000 ####[facility] [address] [place], [address] ALCA 0 units Normal 0-60 [facility] Comment on above: Result Comment: Nega tive:<55 Equivocal: 55-60 Positive: >60 Performed By: #### L 100.0100, L2100.0000 ####[facility] [address] [place] [address] AMCA 9 units Normal 0-100 [facility] Comment on above: Result Comment: Nega tive: <90 Equivocal: 90-100 Positive: >100 This test was developed and its performance characteristics determined by [facility]. It has not been cleared or approved by the Food and Drug Administration. The FDA has determined that such clearance or approval is not necessary. Performed By: #### L 100.0100, L2100.0000 ####[facility] [address] [facility] [address] Atypical pANCA Negative Normal Negative [facility] Comment on above: Performed By: #### L 100.0100, L2100.0000 ####[facility] [address] [facility] [address] COMMENT Comment Normal . [facility] Comment on above: Result Comment: Alaina guillaume is not suggestive of Inflammatory Bowel DiseasePerformed at: - [facility] [id number] Director: Chung Campbell MD, Phone: [phone] Performed By: #### L 100.0100, L2100.0000 ####[facility] [address] [place], [address] Yesi 3 units Normal 0-50 [facility] Comment on above: Result Comment: Nega tive: <45 Equivocal: 45-50 Positive: >50 Performed By: #### L 100.0100, L2100.0000 ####[facility] [address] [place], [address] Stool Lactoferrin/WBCon 05-29 WBCST Normal Reference Range = Negative Fecal WBC Lactoferrin A Positive: Fecal WBC Lactoferrin present A Normal [facility] Comment on above: Performed By: #### M 100.0605, L7000.0750, L7000.0700 ####[facility] [address] [place], [address] Lna Office Visit Reporton 06-08-2024 Lna Office Visit Report Normal [facility] PAP IG HPV APTIMA 16/18,45on 06-08-2024 ADEQ Comment Normal . [facility] Comment on above: Order Comment: Speci men Comment: [id number] Comment: Source.............Cervix;EndocervixSpecimen Comment: No. of containers..01 ThinPrep Vial Result Comment: Sati sfactory for evaluation. Endocervical and/or squamous metaplasticcells (endocervical component) are present. Performed By: #### M 100.2000, M100.3200, L7000.1800, L7400.0280 ####[facility] [address] [place], [address] COMM . Normal . [facility] Comment on above: Order Comment: Speci men Comment: [id number] Comment: Source.............Cervix;EndocervixSpecimen Comment: No. of containers..01 ThinPrep Vial Performed By: #### M 100.1999, M100.3200, L7000.1800, L7400.0280 ####[facility] [address] [place], [place], [id number] COMMENT Comment Normal . [facility] Comment on above: Order Comment: Speci men Comment: [id number] Comment: Source.............Cervix;EndocervixSpecimen Comment: No. of containers..01 ThinPrep Vial Result Comment: This liquid based ThinPrep(R) pap test was screened withthe use of an image guided system. Performed By: #### M 100.1999, M100.3200, L7000.1800, L7400.0280 ####[facility] [address] [place], [place], [id number] DIAG Comment Normal . [facility] Comment on above: Order Comment: Speci men Comment: [id number] Comment: Source.............Cervix;EndocervixSpecimen Comment: No. of containers..01 ThinPrep Vial Result Comment: NEGA TIVE FOR INTRAEPITHELIAL LESION OR MALIGNANCY. Performed By: #### M 100.1999, M100.3200, L7000.1800, L7400.0280 ####[facility] [address] [place], [place], [id number] HPV APTIMA, HR Positive Abnormal Negative [facility] Comment on above: Order Comment: Speci men Comment: [id number] Comment: Source.............Cervix;EndocervixSpecimen Comment: No. of containers..01 ThinPrep Vial Result Comment: This nucleic acid amplification test detects fourteen high-risk HPV types (16,18,31,33,35,39,45,51,52,56,58,59,66,68)without differentiation. Performed By: #### M 100.1999, M100.3200, L7000.1800, L7400.0280 ####[facility] [address] [place], [address] HPV Celine 18,45 Negative Normal Negative [facility] Comment on above: Order Comment: Speci men Comment: [id number] Comment: Source.............Cervix;EndocervixSpecimen Comment: No. of containers..01 ThinPrep Vial Result Comment: Perf ormed at: WB - [facility] [address] [id number] Director: Alma Delia العراقي MD, Phone: [phone] at: =G - [facility] [address] [id number] Director: Alma Delia العراقي MD, Phone: [phone] Performed By: #### M 100.1999, M100.3200, L7000.1800, L7400.0280 ####[facility] [address] [place], [address] HPV Celine Rfx Comment Normal . [facility] Comment on above: Order Comment: Speci men Comment: [id number] Comment: Source.............Cervix;EndocervixSpecimen Comment: No. of containers..01 ThinPrep Vial Result Comment: Emily romero, see HPV Genotype results. Performed By: #### M 100.1999, M100.3200, L7000.1800, L7400.0280 ####[facility] [address] [place], [address] HPV Genotype 16 Negative Normal Negative [facility] Comment on above: Order Comment: Speci men Comment: [id number] Comment: Source.............Cervix;EndocervixSpecimen Comment: No. of containers..01 ThinPrep Vial Performed By: #### M 100.1999, M100.3200, L7000.1800, L7400.0280 ####[facility] [address] [place], [address] PAPSMR Comment Normal . [facility] Comment on above: Order Comment: Speci men Comment: [id number] Comment: Source.............Cervix;EndocervixSpecimen Comment: No. of containers..01 ThinPrep Vial Result Comment: The Pap smear is a screening test designed to aid in thedetection of premalignant and malignant conditions of theuterine cervix. It is not a diagnostic procedure andshould not be used as the sole means of detecting cervicalcancer. Both false-positive and false-negative reports dooccur. Performed By: #### M 100.1999, M100.3200, L7000.1800, L7400.0280 ####[facility] [address] [place], [address] PERFORM Comment Normal . [facility] Comment on above: Order Comment: Speci men Comment: [id number] Comment: Source.............Cervix;EndocervixSpecimen Comment: No. of containers..01 ThinPrep Vial Result Comment: Rainer Gibson Assessment Manager (ASCP) Performed By: #### M 100.1999, M100.3200, L7000.1800, L7400.0280 ####[facility] [address] [place], [address] Surgery Specimen Level Adonis 06-08-2024 Surgery Specimen Level IV Normal [facility] Comment on above: Performed By: #### P SUIV ####[facility] [address] [place], [address] Chlamydia/GC NELL aptimaon CHLAMY,NUC ACID Negative Normal Negative [facility] Comment on above: Performed By: #### M 100.2000, M100.3200, L7000.1800, L7400.0280 ####[facility] [address] [place], [address] GC BY NUC ACID Negative Normal Negative [facility] Comment on above: Result Comment: Perf ormed at: =G - [facility] [address] [id number] Director: Alma Delia العراقي MD, Phone: [phone] Performed By: #### M 100.2000, M100.3200, L7000.1800, L7400.0280 ####[facility] [address] [place], [address] CBC W/Diff, Automatedon 09-0 9-2024 Absolute Lymph 1.91 X10 3/uL Normal 0.83-4.51 [facility] Comment on above: Performed By: #### L 100.0100, L2100.0000 ####[facility] [address] [place], [address] Absolute Neut 6.9 X10 3/uL Normal 2.0-7.7 [facility] Comment on above: Performed By: #### L 100.0100, L2100.0000 ####[facility] [address] [place], [address] Basophils/100 WBC (Bld) 0.5 % Normal 0-1 [facility] Comment on above: Performed By: #### L 100.0100, L2100.0000 ####[facility] [address] [place], [address] Eosinophils/100 WBC (Bld) 1.9 % Normal 0-5 [facility] Comment on above: Performed By: #### L 100.0100, L2100.0000 ####[facility] [address] [place], [address] Erythrocyte distribution width (RBC) [Ratio] 12.9 % Normal 11.6-14.6 [facility] Comment on above: Performed By: #### L 100.0100, L2100.0000 ####[facility] [address] [place], [address] Hematocrit (Bld) [Volume fraction] 41.0 % Normal 37-47 [facility] Comment on above: Performed By: #### L 100.0100, L2100.0000 ####[facility] [address] [place], [address] Hemoglobin (Bld) [Mass/Vol] 13.3 g/dL Normal 12.0-15.0 [facility] Comment on above: Performed By: #### L 100.0100, L2100.0000 ####[facility] [address] [place], [address] IG% 0.400 Normal 0.0-0.9 [facility] Comment on above: Result Comment: IG% - Immature Granulocytes (promyelocytes, myelocytes andmetamyelocytes) > 1% indicates that a LEFT SHIFT is Present. Performed By: #### L 100.0100, L2100.0000 ####[facility] [address] [place], [address] Lymphocytes/100 WBC (Bld) 19.3 % Normal 19-41 [facility] Comment on above: Performed By: #### L 100.0100, L2100.0000 ####[facility] [address] [place], [address] MCH (RBC) [Entitic mass] 30.4 pg Normal 27.0-32.0 [facility] Comment on above: Performed By: #### L 100.0100, L2100.0000 ####[facility] [address] [place], [address] MCHC (RBC) [Mass/Vol] 32.4 g/dL Normal 32-36 [facility] Comment on above: Performed By: #### L 100.0100, L2100.0000 ####[facility] [address] [place], [address] MCV (RBC) [Entitic vol] 93.6 fL Normal 81-99 [facility] Comment on above: Performed By: #### L 100.0100, L2100.0000 ####[facility] [address] [place], [address] Monocytes/100 WBC (Bld) 7.8 % Normal 0-10 [facility] Comment on above: Performed By: #### L 100.0100, L2100.0000 ####[facility] [address] [place], [address] Neutrophils/100 WBC (Bld) 70.1 % High 47-70 [facility] Comment on above: Performed By: #### L 100.0100, L2100.0000 ####[facility] [address] [place], [address] Nucleated RBC (Bld) [#/Vol] 0 10*3/uL Normal 0-5 [facility] Comment on above: Performed By: #### L 100.0100, L2100.0000 ####[facility] [address] [place], [address] Platelet mean volume (Bld) [Entitic vol] 9.7 fL Normal 6.2-12.0 [facility] Comment on above: Performed By: #### L 100.0100, L2100.0000 ####[facility] [address] [place], [address] Platelets (Bld) [#/Vol] 334 10*3/uL Normal 150-450 [facility] Comment on above: Performed By: #### L 100.0100, L2100.0000 ####[facility] [address] [place], [address] RBC (Bld) [#/Vol] 4.38 10*6/uL Normal 4.2-5.4 [facility] Comment on above: Performed By: #### L 100.0100, L2100.0000 ####[facility] [address] [place], [address] RDW SD 44.5 fl High 35.1-43.9 [facility] Comment on above: Performed By: #### L 100.0100, L2100.0000 ####[facility] [address] [place], [address] WBC (Bld) [#/Vol] 9.9 10*3/uL Normal 4.4-11.0 [facility] Comment on above: Performed By: #### L 100.0100, L2100.0000 ####[facility] [address] [place], [address] Gastroenterology Visit Repor ton 06-06-2024 Gastroenterology Visit Report Normal [facility] Pelvic w/ Transvaginalon Pelvic w/ Transvaginal Normal [facility] Genital Culture Comprehensiv kyler 06-03-2024 VAC Reason for Exam: vaginal discharge Normal vaginal jostin isolated. No yeast, Gardnerella, Neisseria or beta-hemolytic Streptococcus isolated. Normal [facility] Comment on above: Performed By: #### M 100.1999, M100.3200, L7000.1800, L7400.0280 ####[facility] [address] [place], [address] Gram Stainon 06-03-2024 GS Reason for Exam: vaginal discharge Gram Stain 4+ Gram positive rods Rare Gram positive cocci No Gram negative diplococci Rare White Blood Cells Normal [facility] Comment on above: Performed By: #### M 100.1999, M100.3200, L7000.1800, L7400.0280 ####[facility] [address] [place], [address] Lna Office Visit Reporton 06-02-2024 Lna Office Visit Report Normal [facility] CNOVon 05-25-2024 [facility] Office Visit (FAMPWS ) LEIDY BLANCO ([id number]) 1955 F Date Time Provider Department 05/25/24 2:40 PM CATALINA YOUNG During your visit today, we recorded the following information about you: Pulse Respiration Blood pressure Weight 80/minute 18/minute 106/72 76.4 kg Catalina Young APRN.CNP 05/25/2024 3:19 PM Signed 05/25/2024 Patient presents with: ER F/U: 05/22/2024 [facility] for left lower quadrant pain SUBJECTIVE: This is a 68 year old that is here today for Above Complaints. HOSPITAL/ER FOLLOW UP: Reason for visit: abdominal pain Which facility: [facility] Date of visit: 05/22/2024 Diagnosis: endometrial thickening [...] 1 tablet by mouth once daily. Insulin [place], Disposable, (PEN NEEDLE) 29 gauge x 1/2 [...] DM - Uncontrolled Insulin: No No current facility-administered medications for [...] Screening Never (more content not included)... Normal [facility] 05-23-[address] [facility] Telephone ([employer]) LEIDY BLANCO ([id number]) 1955 F Date Time Provider Department 05/23/24 [facility] During your visit today, we recorded the following information about you: Fernanda Ulloa LPN 05/23/2024 9:36 AM Signed Pt called in and was seen in the [facility] ER last night 05-22-24 for left side abdominal pain. Pt had a CT done. Showed thickened endometrial lining of 1/4 cm no other acute findings. pt's provider/team not available. Pt scheduled with provider. Fernanda Ulloa LPN Allergies As of Date: 05/23/2024 Noted Allergy Reaction ASA (SALICYLATES) 01/05/2006 4 - Hives 8 - GI Upset Comments: As a child GLUTEN 10/17/2016 5 - Intolerance METFORMIN 8 - GI Upset 9 - Itching PREDNISONE 10/02/2012 9 - Itching SULFA (SULFONAMIDE ANTIBIOTICS) 12/29/2005 2 - Rash Date Reviewed: 05/10/2024 Reviewed by: Pushpa Falcon, RN - Fully Assessed Reason for Visit: Future Appointment [256] Prescriptions as of 05/23/2024 - insulin glargine (LANTUS SOLOSTAR U-100 INSULIN) 100 unit/mL (3 mL) Inject 14 Units subcutaneously daily at bedtime. - Insulin [place], Disposable, (PEN NEEDLE) 29 gauge x 1/2 [...] BMI 30-34.9 [E66.9] 03/23/2024 Encounter Status:Closed by FERNANDA ULLOA on 05/23/24 Normal [facility] Abdomen/Pelvis W IV Cont ONL Yon 05-22-2024 Abdomen/Pelvis W IV Cont ONLY Normal [facility] Basic Metabolic Profile (BMP )on 05-22-2024 BUN/CRE 29.0 RATIO High 10-20 [facility] Comment on above: Performed By: #### L 100.0100, L500.2500 ####[facility] [address] [place], [address] CA,Total 9.6 mg/dL Normal 8.5-10.1 [facility] Comment on above: Performed By: #### L 100.0100, L500.2500 ####[facility] [address] [place], [address] Chloride [Moles/Vol] 95 mmol/L Low 98-107 [facility] Comment on above: Performed By: #### L 100.0100, L500.2500 ####[facility] [address] [place], [address] CO2 [Moles/Vol] 26.0 mmol/L Normal 21.0-32.0 [facility] Comment on above: Performed By: #### L 100.0100, L500.2500 ####[facility] [address] [place], [address] Creatinine [Mass/Vol] 0.66 mg/dL Normal 0.55-1.02 [facility] Comment on above: Result Comment: The validity of the calculated GFR GFRAA in patients over70 years has not been determined. Clinical correlation isessential. Performed By: #### L 100.0100, L500.2500 ####[facility] [address] [place], [address] ECRCL 60.85 ml/min Normal [facility] Comment on above: Performed By: #### L 100.0100, L500.2500 ####[facility] [address] [place], [address] EST GFR - AA 115 mL/min Normal >60 [facility] Comment on above: Result Comment: Afri can Nepalese GFR Calc Performed By: #### L 100.0100, L500.2500 ####[facility] [address] [place], [address] GAP 9 Normal 5-15 [facility] Comment on above: Performed By: #### L 100.0100, L500.2500 ####[facility] [address] [place], [address] GFR/1.73 sq M.predicted among non-blacks MDRD (S/P/Bld) [Vol rate/Area] 95 mL/min/{1.73_m2} Normal >60 [facility] Comment on above: Result Comment: Non- GFR Calc Performed By: #### L 100.0100, L500.2500 ####[facility] [address] [place], [address] Glucose [Mass/Vol] 232 mg/dL High 74-106 [facility] Comment on above: Result Comment: Gluc ose result greater than or equal to 200 mg/dLsuggests DIABETES MELLITUS per A.D.A. criteria. Performed By: #### L 100.0100, L500.2500 ####[facility] [address] [place], [address] Potassium [Moles/Vol] 4.3 mmol/L Normal 3.5-5.1 [facility] Comment on above: Result Comment: Mode rate Hemolysis, Result may be falsely increased. Performed By: #### L 100.0100, L500.2500 ####[facility] [address] [place], [address] Sodium [Moles/Vol] 130 mmol/L Low 136-145 [facility] Comment on above: Performed By: #### L 100.0100, L500.2500 ####[facility] [address] [place], [address] Urea nitrogen [Mass/Vol] 19 mg/dL High 7-18 [facility] Comment on above: Performed By: #### L 100.0100, L500.2500 ####[facility] [address] [place], [address] CBC W/Diff, Automatedon 08-2 5-2023 Absolute Lymph 1.86 X10 3/uL Normal 0.83-4.51 [facility] Comment on above: Performed By: #### L 100.0100, L500.2500 ####[facility] [address] [place], [address] Absolute Neut 12.0 X10 3/uL High 2.0-7.7 [facility] Comment on above: Performed By: #### L 100.0100, L500.2500 ####[facility] [address] [place], [address] Basophils/100 WBC (Bld) 0.2 % Normal 0-1 [facility] Comment on above: Performed By: #### L 100.0100, L500.2500 ####[facility] [address] [place], [address] Eosinophils/100 WBC (Bld) 0.5 % Normal 0-5 [facility] Comment on above: Performed By: #### L 100.0100, L500.2500 ####[facility] [address] [place], [address] Erythrocyte distribution width (RBC) [Ratio] 12.6 % Normal 11.6-14.6 [facility] Comment on above: Performed By: #### L 100.0100, L500.2500 ####[facility] [address] [place], [address] Hematocrit (Bld) [Volume fraction] 40.6 % Normal 37-47 [facility] Comment on above: Performed By: #### L 100.0100, L500.2500 ####[facility] [address] [place], [address] Hemoglobin (Bld) [Mass/Vol] 13.8 g/dL Normal 12.0-15.0 [facility] Comment on above: Performed By: #### L 100.0100, L500.2500 ####[facility] [address] [place], [address] IG% 0.500 Normal 0.0-0.9 [facility] Comment on above: Result Comment: IG% - Immature Granulocytes (promyelocytes, myelocytes andmetamyelocytes) > 1% indicates that a LEFT SHIFT is Present. Performed By: #### L 100.0100, L500.2500 ####[facility] [address] [place], [address] Lymphocytes/100 WBC (Bld) 12.6 % Low 19-41 [facility] Comment on above: Performed By: #### L 100.0100, L500.2500 ####[facility] [address] [place], [address] MCH (RBC) [Entitic mass] 30.4 pg Normal 27.0-32.0 [facility] Comment on above: Performed By: #### L 100.0100, L500.2500 ####[facility] [address] [place], [address] MCHC (RBC) [Mass/Vol] 34.0 g/dL Normal 32-36 [facility] Comment on above: Performed By: #### L 100.0100, L500.2500 ####[facility] [address] [place], [address] MCV (RBC) [Entitic vol] 89.4 fL Normal 81-99 [facility] Comment on above: Performed By: #### L 100.0100, L500.2500 ####[facility] [address] [place], [address] Monocytes/100 WBC (Bld) 5.1 % Normal 0-10 [facility] Comment on above: Performed By: #### L 100.0100, L500.2500 ####[facility] [address] [place], [address] Neutrophils/100 WBC (Bld) 81.1 % High 47-70 [facility] Comment on above: Performed By: #### L 100.0100, L500.2500 ####[facility] [address] [place], [address] Nucleated RBC (Bld) [#/Vol] 0 10*3/uL Normal 0-5 [facility] Comment on above: Performed By: #### L 100.0100, L500.2500 ####[facility] [address] [place], [address] Platelet mean volume (Bld) [Entitic vol] 9.5 fL Normal 6.2-12.0 [facility] Comment on above: Performed By: #### L 100.0100, L500.2500 ####[facility] [address] [place], [address] Platelets (Bld) [#/Vol] 326 10*3/uL Normal 150-450 [facility] Comment on above: Performed By: #### L 100.0100, L500.2500 ####[facility] [address] [place], [address] RBC (Bld) [#/Vol] 4.54 10*6/uL Normal 4.2-5.4 [facility] Comment on above: Performed By: #### L 100.0100, L500.2500 ####[facility] [address] [place], [address] RDW SD 41.5 fl Normal 35.1-43.9 [facility] Comment on above: Performed By: #### L 100.0100, L500.2500 ####[facility] [address] [place], [address] WBC (Bld) [#/Vol] 14.8 10*3/uL High 4.4-11.0 [facility] Comment on above: Performed By: #### L 100.0100, L500.2500 ####[facility] [address] [place], [address] Emergency Department Summary on 05-22-2024 Emergency Department Summary Normal [facility] Urinalysis, Completeon 05-22 RBC 0-5 SEEN Normal 0-5 [facility] Comment on above: Order Comment: CLEAN CATCH Performed By: #### L 400.0001 ####[facility] [address] [place], [address] BACTERIA 0 SEEN Normal None Seen [facility] Comment on above: Order Comment: CLEAN CATCH Performed By: #### L 400.0001 ####[facility] [address] [place], [address] EPI,SQUAMOUS 0 SEEN Normal 5-10 [facility] Comment on above: Order Comment: CLEAN CATCH Performed By: #### L 400.0001 ####[facility] [address] [place], [address] Mucus Ql (Urine sed) 0 SEEN Normal [facility] Comment on above: Order Comment: CLEAN CATCH Performed By: #### L 400.0001 ####[facility] [address] [place], [address] WBC 0 SEEN Normal 0-5 [facility] Comment on above: Order Comment: CLEAN CATCH Performed By: #### L 400.0001 ####[facility] [address] [place], [address] CBC W Auto Differential pane l (Bld)on 05-17-2024 Basophils (Bld) [#/Vol] 0.07 10*3/uL Normal <0.11 [facility] Comment on above: Order Comment: Speci men Type: BLOOD SPECIMENOrdering Facility: [facility] Address: [address] [place] [address] Performed By: #### 5 7021-8 ####[facility] LABCLIA [id number] [place] [address] [place] Basophils/100 WBC (Bld) 0.6 % Normal [facility] Comment on above: Order Comment: Speci men Type: BLOOD SPECIMENOrdering Facility: [facility] Address: [address] [place] [address] Performed By: #### 5 7021-8 ####[facility] LABCLIA [id number] [place] [address] [place] Differential cell count method Nom (Bld) Auto Normal [facility] Comment on above: Order Comment: Speci men Type: BLOOD SPECIMENOrdering Facility: [facility] Address: [address] [place] [address] Performed By: #### 5 7021-8 ####[facility] LABCLIA [id number] [place] [address] [place] Eosinophils (Bld) [#/Vol] 0.18 10*3/uL Normal <0.46 [facility] Comment on above: Order Comment: Speci men Type: BLOOD SPECIMENOrdering Facility: [facility] Address: [address] [place] [address] Performed By: #### 5 7021-8 ####[facility] LABCLIA [id number] [place] [address] [place] Eosinophils/100 WBC (Bld) 1.5 % Normal [facility] [facility] Comment on above: Order Comment: Speci men Type: BLOOD SPECIMENOrdering Facility: [facility] Address: [address] [place] [address] Performed By: #### 5 7021-8 ####[facility] LABCLIA [id number] [place] [address] [place] Erythrocyte distribution width (RBC) [Ratio] 12.9 % Normal 11.5-15.0 [facility] Comment on above: Order Comment: Speci men Type: BLOOD SPECIMENOrdering Facility: [facility] Address: [address] [place] [address] Performed By: #### 5 7021-8 ####[facility] LABCLIA [id number] [place] [address] [place] Hematocrit (Bld) [Volume fraction] 42.6 % Normal 36.0-46.0 [facility] Comment on above: Order Comment: Speci men Type: BLOOD SPECIMENOrdering Facility: [facility] Address: [address] [place] [address] Performed By: #### 5 7021-8 ####[facility] LABCLIA [id number] [place] [address] [place] Hemoglobin (Bld) [Mass/Vol] 13.4 g/dL Normal 11.5-15.5 [facility] Comment on above: Order Comment: Speci men Type: BLOOD SPECIMENOrdering Facility: [facility] Address: [address] [place] [address] Performed By: #### 5 7021-8 ####[facility] LABCLIA [id number] [place] [address] [place] Immature granulocytes (Bld) [#/Vol] 0.05 10*3/uL Normal <0.10 [facility] Comment on above: Order Comment: Speci men Type: BLOOD SPECIMENOrdering Facility: [facility] Address: [address] [place] [address] Performed By: #### 5 7021-8 ####[facility] LABCLIA [id number] [place] [address] [place] Immature granulocytes/100 WBC (Bld) 0.4 % Normal [facility] Comment on above: Order Comment: Speci men Type: BLOOD SPECIMENOrdering Facility: [facility] Address: [address] [place] [address] Performed By: #### 5 7021-8 ####[facility] LABCLIA [id number] [place] [address] [place] Lymphocytes (Bld) [#/Vol] 2.19 10*3/uL Normal 1.00-4.00 [facility] Comment on above: Order Comment: Speci men Type: BLOOD SPECIMENOrdering Facility: [facility] Address: [address] [place] [address] Performed By: #### 5 7021-8 ####[facility] LABIA [id number] [place] [address] [place] Lymphocytes/100 WBC (Bld) 18.1 % Normal [facility] Comment on above: Order Comment: Speci men Type: BLOOD SPECIMENOrdering Facility: [facility] Address: [address] [place] [address] Performed By: #### 5 7021-8 ####[facility] LABIA [id number] [place] [address] [place] MCH (RBC) [Entitic mass] 30.2 pg Normal 26.0-34.0 [facility] Comment on above: Order Comment: Speci men Type: BLOOD SPECIMENOrdering Facility: [facility] Address: [address] [place] [address] Performed By: #### 5 7021-8 ####[facility] LABCLIA [id number] [place] [address] [place] MCHC (RBC) [Mass/Vol] 31.5 g/dL Normal 30.5-36.0 [facility] Comment on above: Order Comment: Speci men Type: BLOOD SPECIMENOrdering Facility: [facility] Address: [address] [place] [address] Performed By: #### 5 7021-8 ####[facility] LABIA [id number] [place] [address] [place] MCV (RBC) [Entitic vol] 95.9 fL Normal 80.0-100.0 [facility] Comment on above: Order Comment: Speci men Type: BLOOD SPECIMENOrdering Facility: [facility] Address: [address] [place] [address] Performed By: #### 5 7021-8 ####[facility] LABIA [id number] [place] [address] [place] Monocytes (Bld) [#/Vol] 0.87 10*3/uL High <0.87 [facility] Comment on above: Order Comment: Speci men Type: BLOOD SPECIMENOrdering Facility: [facility] Address: [address] [place] [address] Performed By: #### 5 7021-8 ####[facility] LABIA [id number] [place] [address] [place] Monocytes/100 WBC (Bld) 7.2 % Normal [facility] Comment on above: Order Comment: Speci men Type: BLOOD SPECIMENOrdering Facility: [facility] Address: [address] [place] [address] Performed By: #### 5 7021-8 ####[facility] LABIA [id number] [place] [address] [place] Neutrophils (Bld) [#/Vol] 8.71 10*3/uL High 1.45-7.50 [facility] Comment on above: Order Comment: Speci men Type: BLOOD SPECIMENOrdering Facility: [facility] Address: [address] [place] [address] Performed By: #### 5 7021-8 ####[facility] LABCLIA [id number] [place] [address] [place] Neutrophils/100 WBC (Bld) 72.2 % Normal [facility] Comment on above: Order Comment: Speci men Type: BLOOD SPECIMENOrdering Facility: [facility] Address: [address] [place] [address] Performed By: #### 5 7021-8 ####[facility] LABCLIA [id number] [place] [address] [place] Nucleated RBC (Bld) [#/Vol] 10*3/uL Normal <0.01 [facility] Comment on above: Order Comment: Speci men Type: BLOOD SPECIMENOrdering Facility: [facility] Address: [address] [place] [address] Performed By: #### 5 7021-8 ####[facility] LABCLIA [id number] [place] [address] [place] Nucleated RBC/100 WBC (Bld) [Ratio] 0.0 /100 WBC Normal [facility] Comment on above: Order Comment: Speci men Type: BLOOD SPECIMENOrdering Facility: [facility] Address: [address] [place] [address] Performed By: #### 5 7021-8 ####[facility] LABCLIA [id number] [place] [address] [place] Platelet mean volume (Bld) [Entitic vol] 10.2 fL Normal 9.0-12.7 [facility] Comment on above: Order Comment: Speci men Type: BLOOD SPECIMENOrdering Facility: [facility] Address: [address] [place] [address] Performed By: #### 5 7021-8 ####[facility] LABCLIA [id number] [place] [address] [place] Platelets (Bld) [#/Vol] 324 10*3/uL Normal 150-400 [facility] Comment on above: Order Comment: Speci men Type: BLOOD SPECIMENOrdering Facility: [facility] Address: [address] [place] [address] Performed By: #### 5 7021-8 ####[facility] LABCLIA [id number] [place] [address] [place] RBC (Bld) [#/Vol] 4.44 10*6/uL Normal 3.90-5.20 [facility] Comment on above: Order Comment: Speci men Type: BLOOD SPECIMENOrdering Facility: [facility] Address: [address] [place] [address] Performed By: #### 5 7021-8 ####[facility] LABCLIA [id number] [place] [address] [place] WBC (Bld) [#/Vol] 12.07 10*3/uL High 3.70-11.00 [facility] Comment on above: Order Comment: Speci men Type: BLOOD SPECIMENOrdering Facility: [facility] Address: [address] [place] [address] Performed By: #### 5 7021-8 ####[facility] LABCLIA [id number] [place] [address] [place] Comprehensive metabolic 2000 panelon 05-17-2024 Albumin [Mass/Vol] 4.3 g/dL Normal 3.9-4.9 [facility] Comment on above: Order Comment: Speci men Type: BLOOD SPECIMENOrdering Facility: [facility] Address: [address] [place] [address] Performed By: #### 2 4323-8, 79925-6, 3016-3, 43946-0 ####[facility] LABCLIA [id number] [place] [address] [place] ALP [Catalytic activity/Vol] 86 U/L Normal 34-123 [facility] Comment on above: Order Comment: Speci men Type: BLOOD SPECIMENOrdering Facility: [facility] Address: [address] [place] [address] Performed By: #### 2 4323-8, 25663-1, 6-3, 91912-1 ####[facility] LABCLIA [id number] [address] [address] [place] ALT [Catalytic activity/Vol] 12 U/L Normal 7-38 [facility] Comment on above: Order Comment: Speci men Type: BLOOD SPECIMENOrdering Facility: [facility] Address: [address] [place], [place] [address] Performed By: #### 2 4323-8, 12578-0, 3015-3, 02870-0 ####[facility] LABCLIA [id number] [address] [address] [place] Anion gap [Moles/Vol] 9 mmol/L Normal 8-15 [facility] Comment on above: Order Comment: Speci men Type: BLOOD SPECIMENOrdering Facility: [facility] Address: [address] [place], [place] [address] Performed By: #### 2 4323-8, 62659-8, 3015-3, 47205-7 ####[facility] LABCLIA [id number] [address] [address] [place] AST [Catalytic activity/Vol] 15 U/L Normal 13-35 [facility] Comment on above: Order Comment: Speci men Type: BLOOD SPECIMENOrdering Facility: [facility] Address: [address] [place] [address] Performed By: #### 2 4323-8, 77270-9, 3015-3, 09678-3 ####[facility] LABCLIA [id number] [address] [address] [place] Bilirubin [Mass/Vol] 0.6 mg/dL Normal 0.2-1.3 [facility] Comment on above: Order Comment: Speci men Type: BLOOD SPECIMENOrdering Facility: [facility] Address: [address] [place] [address] Performed By: #### 2 4323-8, 52799-9, 3015-3, 70721-2 ####[facility] LABCLIA [id number] [address] [address] [place] Calcium [Mass/Vol] 9.6 mg/dL Normal 8.5-10.2 [facility] Comment on above: Order Comment: Speci men Type: BLOOD SPECIMENOrdering Facility: [facility] Address: [address] [place] [address] Performed By: #### 2 4323-8, 86471-2, 3015-3, 46853-5 ####[facility] LABIA [id number] [place] [address] [place] Chloride [Moles/Vol] 100 mmol/L Normal 98-107 [facility] Comment on above: Order Comment: Speci men Type: BLOOD SPECIMENOrdering Facility: [facility] Address: [address] [place] [address] Performed By: #### 2 4323-8, 31710-7, 3015-3, 02192-2 ####[facility] LABIA [id number] [address] [address] [place] CO2 [Moles/Vol] 27 mmol/L Normal 22-30 [facility] Comment on above: Order Comment: Speci men Type: BLOOD SPECIMENOrdering Facility: [facility] Address: [address] [place] [address] Performed By: #### 2 4323-8, 22920-1, 3015-3, 96331-8 ####[facility] LABCLIA [id number] [address] [address] [place] Creatinine [Mass/Vol] 0.67 mg/dL Normal 0.58-0.96 [facility] Comment on above: Order Comment: Speci men Type: BLOOD SPECIMENOrdering Facility: [facility] Address: [address] [place] [address] Performed By: #### 2 4323-8, 65539-8, 3016-3, 23819-6 ####[facility] LABIA [id number] [place] [address] [place] Creatinine and Glomerular filtration rate.predicted panel (S/P/Bld) 95 mL/min/1.73m??? Normal >=60 [facility] Comment on above: Order Comment: Abimbola emily Type: BLOOD SPECIMENOrdering Facility: [facility] Address: [address] [place] [address] Result Comment: Ana Paula mated Glomerular Filtration [...] actual GFR. Performed By: #### 2 4323-8, 25645-0, 3016-3, 22217-5 ####[facility] LABCLIA [id number] [place] [address] [place] Glucose [Mass/Vol] 176 mg/dL High 74-99 [facility] Comment on above: Order Comment: Abimbola diaz Type: BLOOD SPECIMENOrdering Facility: [facility] Address: [address] [place] [address] Result Comment: The [place] Diabetes Association (ADA) provides guidance for cutoff [...] Standards of Medical Care in Diabetes 2016, [place] [employer]. Diabetes Care. 2016.39(Suppl 1). Performed By: #### 2 4323-8, 43422-2, 3015-3, 49784-9 ####[facility] LABCLIA [id number] [address] [address] [place] Potassium [Moles/Vol] 4.8 mmol/L Normal 3.7-5.1 [facility] Comment on above: Order Comment: Speci men Type: BLOOD SPECIMENOrdering Facility: [facility] Address: [address] [place] [address] Performed By: #### 2 4323-8, 74337-2, 3015-3, 27353-5 ####[facility] LABCLIA [id number] [address] [address] [place] Protein [Mass/Vol] 6.9 g/dL Normal 6.3-8.0 [facility] Comment on above: Order Comment: Speci men Type: BLOOD SPECIMENOrdering Facility: [facility] Address: [address] [place] [address] Performed By: #### 2 4323-8, 71175-0, 3, 60456-7 ####[facility] LABIA [id number] [address] [address] [place] Sodium [Moles/Vol] 136 mmol/L Normal 136-144 [facility] Comment on above: Order Comment: Speci men Type: BLOOD SPECIMENOrdering Facility: [facility] Address: [address] [place] [address] Performed By: #### 2 4323-8, 58161-1, 3, 58422-0 ####[facility] LABCLIA [id number] [address] [address] [place] Urea nitrogen [Mass/Vol] 17 mg/dL Normal 7-21 [facility] Comment on above: Order Comment: Speci men Type: BLOOD SPECIMENOrdering Facility: [facility] Address: [address] [place] [address] Performed By: #### 2 4323-8, 44063-9, 3016-3, 37830-7 ####[facility] LABCLIA [id number] [place] [address] [place] [facility] [place] HbA1c (Bld)on 05-17-2024 Average glucose Estimated from glycated hemoglobin (Bld) [Mass/Vol] 151 mg/dL Normal [facility] Comment on above: Order Comment: Abimbola emily Type: BLOOD SPECIMENOrdering Facility: [facility] Address: [address] [place] [address] Result Comment: eAG: (Estimated average glucose) is a calculated value from HgbA1c and is medical office representative of the average blood glucose level in the last 2-3 month period. Performed By: #### 5 5454-3 ####[facility] LABIA [id number] [place] [address] [place] [facility] HbA1c (Bld) [Mass fraction] 6.9 % High 4.3-5.6 [facility] Comment on above: Order Comment: Abimbola diaz Type: BLOOD SPECIMENOrdering Facility: [facility] Address: [address] [place] [address] Result Comment: Amer [place] Diabetes Association guidelines indicate that patients with HgbA1c in the range 5.7-6.4% are at increased risk for development of diabetes, and intervention by lifestyle modification may be beneficial. HgbA1c greater or equal to 6.5% is considered diagnostic of diabetes. Performed By: #### 5 5454-3 ####[facility] LABIA [id number] [place] [address] [place] Lipid 1996 panelon 4 Cholesterol [Mass/Vol] 115 mg/dL Normal <200 [facility] Comment on above: Order Comment: Abimbola emily Type: BLOOD SPECIMENOrdering Facility: [facility] Address: [address] [place] [address] Result Comment: <200 mg/dL, Desirable 200-239 mg/dL, Borderline high >239 mg/dL, High Performed By: #### 2 4323-8, 12125-6, 6-3, 37213-2 ####[facility] LABCLIA [id number] [address] [address] [place] Cholesterol in HDL [Mass/Vol] 71 mg/dL Normal >39 [facility] Comment on above: Order Comment: Speci men Type: BLOOD SPECIMENOrdering Facility: [facility] Address: [address] [place] [address] Result Comment: 40-5 9 mg/dL, Acceptable >59 mg/dL, High: Negative risk factor for coronary heart disease <40 mg/dL, Low: Positive risk factor for coronary heart disease Performed By: #### 2 4323-8, 03737-4, 6-3, 99902-4 ####[facility] LABCLIA [id number] [address] [place] Cholesterol in LDL [Mass/Vol] 28 mg/dL Normal <100 [facility] Comment on above: Order Comment: Abimbola men Type: BLOOD SPECIMENOrdering Facility: [facility] Address: [address] [place] [address] Result Comment: <100 mg/dL, Optimal 100-129 mg/dL, Near optimal/above optimal 130-159 mg/dL, Borderline high 160-189 mg/dL, High >189 mg/dL, Very high Secondary prevention optimal LDL Cholesterol levels are recommended to be < 70 mg/dL Performed By: #### 2 4323-8, 71006-4, 6-3, 25619-7 ####[facility] LABCLIA [id number] [place] [id number] [place] Cholesterol in LDL/Cholesterol in HDL [Mass ratio] 0.39 {ratio} Normal <2.54 [facility] Comment on above: Order Comment: Noryi men Type: BLOOD SPECIMENOrdering Facility: [facility] Address: [address] [place] [address] Result Comment: Kyra glover: 1. National Cholesterol Education Program ATP III Guideline At-A-Glance Quick Desk Reference: National Heart, Lung, and Blood [place]. National Institutes of Health. 2001: NIH Publication No. 01-3305. 2. An International Atherosclerosis Society position paper: global recommendations for the management of dyslipidemia: executive summary, Atherosclerosis. 2014: 232(2):410-413. Performed By: #### 2 4323-8, 38914-3, 6-3, 38164-0 ####[facility] LABCLIA [id number] [place] [address] [place] Cholesterol in VLDL [Mass/Vol] 16 mg/dL Normal <30 [facility] Comment on above: Order Comment: Speci men Type: BLOOD SPECIMENOrdering Facility: [facility] Address: [address] [place] [address] Performed By: #### 2 4323-8, 78989-2, 3015-3, 07282-9 ####[facility] LABCLIA [id number] [place] [address] [place] Cholesterol non HDL [Mass/Vol] 44 mg/dL Normal <130 [facility] Comment on above: Order Comment: Speci men Type: BLOOD SPECIMENOrdering Facility: [facility] Address: [facility] [address] Result Comment: <130 mg/dL, Optimal 130-159 mg/dL, Near optimal/above optimal 160-189 mg/dL, Borderline high 190-219 mg/dL, High >219 mg/dL, Very high Secondary prevention optimal non HDL Cholesterol levels are recommended to be <100 mg/dL Performed By: #### 2 4323-8, 46807-1, 6-3, 67068-1 ####[facility] LABCLIA [id number] [address] [address] [place] Cholesterol.total/Mary sterol in HDL [Mass ratio] 1.62 {ratio} Normal <5.10 [facility] Comment on above: Order Comment: Speci men Type: BLOOD SPECIMENOrdering Facility: [facility] Address: [address] [place], [place] [address] Performed By: #### 2 4323-8, 54513-0, 3015-3, 63199-2 ####[facility] LABCLIA [id number] [address] [address] [place] FASTING TIME 12 hrs Normal [facility] Comment on above: Order Comment: Speci men Type: BLOOD SPECIMENOrdering Facility: [facility] Address: [address] [place] [address] Performed By: #### 2 4323-8, 55312-3, 3, 18902-1 ####[facility] LABCLIA [id number] [address] [address] [place] Triglyceride [Mass/Vol] 79 mg/dL Normal <150 [facility] Comment on above: Order Comment: Speci men Type: BLOOD SPECIMENOrdering Facility: [facility] Address: [address] [place], [place] [address] Result Comment: <150 mg/dL, Normal 150-199 mg/dL, Borderline high 200-499 mg/dL, High >499 mg/dL, Very high Performed By: #### 2 4322-8, , 3, 64441-9 ####[facility] LABCLIA [id number] [address] [address] [place] Magnesium SerPl-mCncon 05-17 Magnesium [Mass/Vol] 1.9 mg/dL Normal 1.7-2.3 [facility] Comment on above: Order Comment: Speci men Type: BLOOD SPECIMENOrdering Facility: [facility] Address: [address] [place], [place] [address] Performed By: #### 2 4323-8, 80422-7, 3015-3, 05430-7 ####[facility] LABCLIA [id number] [place] [id number] [place] TSH SerPl-aCncon 05-17-2024 TSH Qn 1.960 m[IU]/L Normal 0.270-4.200 [facility] Comment on above: Order Comment: Speci men Type: BLOOD SPECIMENOrdering Facility: [facility] Address: [address] [place] [address] Performed By: #### 2 4323-8, 86047-9, 3016-3, 68044-2 ####[facility] LABCLIA [id number] [facility] [id number] [id number] [facility] CNOVon 05-10-2024 CNOV Office Visit (ENWSTR ) FRANCISLEIDY Joaquim ([id number]) 1955 F Date Time Provider Department 05/10/24 1:40 PM BEAN ISAAC ENGISSEL During your visit today, we recorded the following information about you: Pulse Respiration Blood pressure Weight 76/minute 18/minute 138/78 77.9 kg Height 1.524 m Bean Isaac MD 05/11/2024 11:16 AM Addendum [facility] Initial Clinic Visit Note Referred by: PCP- Preet Farrar DO History of present illness: Leidy G Francis is a 68 year old female here [...] Complications: Cardiovascular -- Yes HTN, HLD, in 2022 she had a Stroke Statin Use -- [...] CARDIOVASCULAR: Chest pain, palpitations, irregular heart beats GASTRO-INTESTINAL:Den ies Nausea, vomiting, abdominal pain, hyperdefecation, rectal bleeding [...] SURGICAL HISTO (more content not included)... Normal [facility] CNPMarii 05-10-2024 CNPN Telephone (FAMPWS) LEIDY BLANCO ([id number]) 1955 F Date Time Provider Department 05/10/24 PREET FARRAR During your visit today, we recorded the following information about you: Sahara Mejia LPN 05/10/2024 2:06 PM Signed Pt. dropped of Bp readings. Placed on Dr. Farrar's desk. Allergies As of Date: 05/10/2024 Noted Allergy Reaction ASA (SALICYLATES) 01/05/2006 4 - Hives 8 - GI Upset Comments: As a child GLUTEN 10/17/2016 5 - Intolerance METFORMIN 8 - GI Upset 9 - Itching PREDNISONE 10/02/2012 9 - Itching SULFA (SULFONAMIDE ANTIBIOTICS) 12/29/2005 2 - Rash Date Reviewed: 05/10/2024 Reviewed by: Pushpa Falcon RN - Fully Assessed Reason for Visit: Blood Pressure [15] Orders [681] Cmt: lab work orders needed. the orders from november is Prescriptions as of 10/04/2024 - glimepiride (AMARYL) 2 mg tablet Take 1 tablet by mouth two times a day with meals. - pantoprazole DR (PROTONIX) 40 mg tablet Take 1 tablet by mouth once daily. - ARMOUR THYROID 120 mg tablet Take 1 tablet PO daily in AM - SITagliptin phosphate (JANUVIA) 100 mg tablet Take 1 tablet by mouth once daily. - blood sugar diagnostic (ONETOUCH VERIO TEST STRIPS) test strip Test blood sugar(s) 4 times daily. Dx: Type 2 DM - Uncontrolled E11.65 Insulin: Yes - dexAMETHasone (DECADRON) 1 mg tablet Take the tablet at 11 pm and go for labs the next morning on fasting at 8 am - Insulin [place], Disposable, (BD ULTRA-FINE MARIA T PEN NEEDLE) [...] by mouth two times a week. - blood sugar diagnostic (BLOOD [...] Insulin: No Problem List As Of Date 05/10/2024 Noted Resolved Diabetes mellitus type 2, controlled, [...] BMI 30-34.9 [E66.811] 03/23/2024 Encounter Status:Closed by SAHARA MEJIA LPN on 10/04/24 Normal [facility] CBC W Auto Differential pane l (Bld)on 05-03-2024 Basophils (Bld) [#/Vol] 0.06 10*3/uL Normal <0.11 [facility] Comment on above: Order Comment: Speci men Type: BLOOD SPECIMENOrdering Facility: [facility] Address: [address] [place] [address] Performed By: #### 5 7021-8 ####[facility] LABCLIA [id number] [place] [address] [place] Basophils/100 WBC (Bld) 0.5 % Normal [facility] Comment on above: Order Comment: Speci men Type: BLOOD SPECIMENOrdering Facility: [facility] Address: [address] [place] [address] Performed By: #### 5 7021-8 ####[facility] LABCLIA [id number] [place] [address] [place] Differential cell count method Nom (Bld) Auto Normal [facility] Comment on above: Order Comment: Speci men Type: BLOOD SPECIMENOrdering Facility: [facility] Address: [address] [place] [address] Performed By: #### 5 7021-8 ####[facility] LABCLIA [id number] [place] [address] [place] Eosinophils (Bld) [#/Vol] 0.16 10*3/uL Normal <0.46 [facility] Comment on above: Order Comment: Speci men Type: BLOOD SPECIMENOrdering Facility: [facility] Address: [address] [place] [address] Performed By: #### 5 7021-8 ####[facility] LABCLIA [id number] [place] [address] [place] Eosinophils/100 WBC (Bld) 1.4 % Normal [facility] Comment on above: Order Comment: Speci men Type: BLOOD SPECIMENOrdering Facility: [facility] Address: [address] [place] [address] Performed By: #### 5 7021-8 ####[facility] LABCLIA [id number] [place] [address] [place] Erythrocyte distribution width (RBC) [Ratio] 13.0 % Normal 11.5-15.0 [facility] Comment on above: Order Comment: Speci men Type: BLOOD SPECIMENOrdering Facility: [facility] Address: [address] [place] [address] Performed By: #### 5 7021-8 ####[facility] LABCLIA [id number] [place] [address] [place] Hematocrit (Bld) [Volume fraction] 41.9 % Normal 36.0-46.0 [facility] Comment on above: Order Comment: Speci men Type: BLOOD SPECIMENOrdering Facility: [facility] Address: [address] [place] [address] Performed By: #### 5 7021-8 ####[facility] LABCLIA [id number] [place] [address] [place] Hemoglobin (Bld) [Mass/Vol] 13.5 g/dL Normal 11.5-15.5 [facility] Comment on above: Order Comment: Speci men Type: BLOOD SPECIMENOrdering Facility: [facility] Address: [address] [place] [address] Performed By: #### 5 7021-8 ####[facility] LABCLIA [id number] [place] [address] [place] Immature granulocytes (Bld) [#/Vol] 0.05 10*3/uL Normal <0.10 [facility] Comment on above: Order Comment: Speci men Type: BLOOD SPECIMENOrdering Facility: [facility] Address: [address] [place] [address] Performed By: #### 5 7021-8 ####[facility] LABCLIA [id number] [place] [address] [place] Immature granulocytes/100 WBC (Bld) 0.4 % Normal [facility] Comment on above: Order Comment: Speci men Type: BLOOD SPECIMENOrdering Facility: [facility] Address: [address] [place] [address] Performed By: #### 5 7021-8 ####[facility] LABCLIA [id number] [place] [address] [place] Lymphocytes (Bld) [#/Vol] 2.34 10*3/uL Normal 1.00-4.00 [facility] Comment on above: Order Comment: Speci men Type: BLOOD SPECIMENOrdering Facility: [facility] Address: [address] [place] [address] Performed By: #### 5 7021-8 ####[facility] LABCLIA [id number] [place] [address] [place] Lymphocytes/100 WBC (Bld) 19.8 % Normal [facility] Comment on above: Order Comment: Speci men Type: BLOOD SPECIMENOrdering Facility: [facility] Address: [address] [place] [address] Performed By: #### 5 7021-8 ####[facility] LABCLIA [id number] [place] [address] [place] MCH (RBC) [Entitic mass] 30.8 pg Normal 26.0-34.0 [facility] Comment on above: Order Comment: Speci men Type: BLOOD SPECIMENOrdering Facility: [facility] Address: [address] [place] [address] Performed By: #### 5 7021-8 ####[facility] LABIA [id number] [place] [address] [place] MCHC (RBC) [Mass/Vol] 32.2 g/dL Normal 30.5-36.0 [facility] Comment on above: Order Comment: Speci men Type: BLOOD SPECIMENOrdering Facility: [facility] Address: [address] [place] [address] Performed By: #### 5 7021-8 ####[facility] LABIA [id number] [place] [address] [place] MCV (RBC) [Entitic vol] 95.4 fL Normal 80.0-100.0 [facility] Comment on above: Order Comment: Speci men Type: BLOOD SPECIMENOrdering Facility: [facility] Address: [address] [place] [address] Performed By: #### 5 7021-8 ####[facility] LABIA [id number] [place] [address] [place] Monocytes (Bld) [#/Vol] 0.90 10*3/uL High <0.87 [facility] Comment on above: Order Comment: Speci men Type: BLOOD SPECIMENOrdering Facility: [facility] Address: [address] [place], [place] [address] Performed By: #### 5 7021-8 ####[facility] LABCLIA [id number] [place] [address] [place] Monocytes/100 WBC (Bld) 7.6 % Normal [facility] Comment on above: Order Comment: Speci men Type: BLOOD SPECIMENOrdering Facility: [facility] Address: [address] [place] [address] Performed By: #### 5 7021-8 ####[facility] LABCLIA [id number] [place] [address] [place] Neutrophils (Bld) [#/Vol] 8.31 10*3/uL High 1.45-7.50 [facility] Comment on above: Order Comment: Speci men Type: BLOOD SPECIMENOrdering Facility: [facility] Address: [address] [place] [address] Performed By: #### 5 7021-8 ####[facility] LABCLIA [id number] [place] [address] [place] Neutrophils/100 WBC (Bld) 70.3 % Normal [facility] Comment on above: Order Comment: Speci men Type: BLOOD SPECIMENOrdering Facility: [facility] Address: [address] [place] [address] Performed By: #### 5 7021-8 ####[facility] LABCLIA [id number] [place] [address] [place] Nucleated RBC (Bld) [#/Vol] 10*3/uL Normal <0.01 [facility] Comment on above: Order Comment: Speci men Type: BLOOD SPECIMENOrdering Facility: [facility] Address: [address] [place] [address] Performed By: #### 5 7021-8 ####[facility] LABCLIA [id number] [place] [address] [place] Nucleated RBC/100 WBC (Bld) [Ratio] 0.0 /100 WBC Normal [facility] Comment on above: Order Comment: Speci men Type: BLOOD SPECIMENOrdering Facility: [facility] Address: [address] [place] [address] Performed By: #### 5 7021-8 ####[facility] LABCLIA [id number] [place] [address] [place] Platelet mean volume (Bld) [Entitic vol] 10.3 fL Normal 9.0-12.7 [facility] Comment on above: Order Comment: Speci men Type: BLOOD SPECIMENOrdering Facility: [facility] Address: [address] [place] [address] Performed By: #### 5 7021-8 ####[facility] LABCLIA [id number] [place] [address] [place] Platelets (Bld) [#/Vol] 347 10*3/uL Normal 150-400 [facility] Comment on above: Order Comment: Speci men Type: BLOOD SPECIMENOrdering Facility: [facility] Address: [address] [place] [address] Performed By: #### 5 7021-8 ####[facility] LABCLIA [id number] [place] [address] [place] RBC (Bld) [#/Vol] 4.39 10*6/uL Normal 3.90-5.20 [facility] Comment on above: Order Comment: Speci men Type: BLOOD SPECIMENOrdering Facility: [facility] Address: [address] [place] [address] Performed By: #### 5 7021-8 ####[facility] LABCLIA [id number] [place] [address] [place] WBC (Bld) [#/Vol] 11.82 10*3/uL High 3.70-11.00 [facility] Comment on above: Order Comment: Speci men Type: BLOOD SPECIMENOrdering Facility: [facility] Address: [address] [place] [address] Performed By: #### 5 7021-8 ####[facility] LABCLIA [id number] [address] [address] [place] Ferritin SerPl-ncon 2023 Ferritin [Mass/Vol] 24.4 ng/mL Normal 14.7-205.1 [facility] Comment on above: Order Comment: Speci men Type: BLOOD SPECIMENOrdering Facility: [facility] Address: [address] [place] [address] Performed By: #### 3 084-1, 71362-8, 2275-12, 72732-5 ####[facility] LABCLIA [id number] [place] [address] [place] Iron and Iron binding capaci panel 05-03-2024 Iron [Mass/Vol] 78 ug/dL Normal 41-186 [facility] Comment on above: Order Comment: Speci men Type: BLOOD SPECIMENOrdering Facility: [facility] Address: [address] [place] [address] Performed By: #### 3 084-1, 72149-1, 2275-12, 69649-5 ####[facility] LABCLIA [id number] [place] [id number] [place] Iron binding capacity [Mass/Vol] 419 ug/dL High 232-386 [facility] Comment on above: Order Comment: Speci men Type: BLOOD SPECIMENOrdering Facility: [facility] Address: [address] [place] [address] Performed By: #### 3 084-1, 21776-9, 2275-12, 15844-8 ####[facility] LABCLIA [id number] [place] [address] [place] Iron/TIBC [Molar ratio] 18.6 % Normal 15.0-57.0 [facility] Comment on above: Order Comment: Speci men Type: BLOOD SPECIMENOrdering Facility: [facility] Address: [address] [place] [address] Performed By: #### 3 084-1, 14247-2, 2276-4, 88135-5 ####[facility] LABCLIA [id number] [place] [address] [place] PTH-Intact SerPl-mCncon 08-0 Parathyrin.intact [Mass/Vol] 30 pg/mL Normal 15-65 [facility] Comment on above: Order Comment: Speci men Type: BLOOD SPECIMENOrdering Facility: [facility] Address: [address] [place] [address] Performed By: #### 2 731-8 ####[facility] LABCLIA [id number] [place] [address] [place] Prot/Creat Uron 05-03-2024 Protein/Creatinine (U) [Mass ratio] 0.40 mg/mg High <0.15 [facility] Comment on above: Order Comment: Speci men Type: URINE SPECIMENOrdering Facility: [facility] Address: [address] [place] [address] Result Comment: Adul t Proteinuria Categories: <0.15 mg/mg is considered normal to mildly increased 0.15 - 0.50 mg/mg is considered moderately increased >0.50 mg/mg is considered severely increased KDIGO. (2013). KDIGO 2012 Clinical Practice Guideline for the Evaluation and Management of Chronic Kidney Disease. Official Journal of the International Society of Nephrology, 3(1), 1-150. Performed By: #### 2 890-2 ####[facility] LABCLIA [id number] [place] [id number] [place] Protein/Creatinine (U) [Mass ratio]on 05-03-2024 Creatinine (U) [Mass/Vol] 12.5 mg/dL Low 20.0-300.0 [facility] Comment on above: Order Comment: Speci men Type: URINE SPECIMENOrdering Facility: [facility] Address: [address] [place] [address] Performed By: #### 2 890-2 ####[facility] LABCLIA [id number] [place] [address] [place] Protein (U) [Mass/Vol] 5 mg/dL Normal 0-20 [facility] Comment on above: Order Comment: Speci men Type: URINE SPECIMENOrdering Facility: [facility] Address: [address] [place] [address] Performed By: #### 2 890-2 ####[facility] LABCLIA [id number] [place] [address] [place] Renal function 2000 panelon 05-03-2024 Albumin [Mass/Vol] 4.5 g/dL Normal 3.9-4.9 [facility] Comment on above: Order Comment: Speci men Type: BLOOD SPECIMENOrdering Facility: [facility] Address: [address] [place] [address] Performed By: #### 3 084-1, 73607-5, 2276-4, 32294-5 ####[facility] LABIA [id number] [place] [address] [place] Anion gap [Moles/Vol] 10 mmol/L Normal 8-15 [facility] Comment on above: Order Comment: Speci men Type: BLOOD SPECIMENOrdering Facility: [facility] Address: [address] [place] [address] Performed By: #### 3 084-1, 44809-7, 2276-4, 63468-5 ####[facility] LABCLIA [id number] [place] [id number] [place] Calcium [Mass/Vol] 10.0 mg/dL Normal 8.5-10.2 [facility] Comment on above: Order Comment: Speci men Type: BLOOD SPECIMENOrdering Facility: [facility] Address: [address] [place] [address] Performed By: #### 3 084-1, 19093-3, 2275-12, 38921-1 ####[facility] LABCLIA [id number] [address] [address] [place] Chloride [Moles/Vol] 100 mmol/L Normal 98-107 [facility] Comment on above: Order Comment: Speci men Type: BLOOD SPECIMENOrdering Facility: [facility] Address: [address] [place] [address] Performed By: #### 3 084-1, 73356-4, 2275-12, 25389-9 ####[facility] LABCLIA [id number] [place] [address] [place] CO2 [Moles/Vol] 27 mmol/L Normal 22-30 [facility] Comment on above: Order Comment: Speci men Type: BLOOD SPECIMENOrdering Facility: [facility] Address: [address] [place] [address] Performed By: #### 3 084-1, 81075-9, 2275-12, 48201-4 ####[facility] LABCLIA [id number] [place] [address] [place] Creatinine [Mass/Vol] 0.68 mg/dL Normal 0.58-0.96 [facility] Comment on above: Order Comment: Speci men Type: BLOOD SPECIMENOrdering Facility: [facility] Address: [address] [place] [address] Performed By: #### 3 084-1, 36188-6, 2275-12, 75068-7 ####[facility] LABCLIA [id number] [address] [address] [place] Creatinine and Glomerular filtration rate.predicted panel (S/P/Bld) 95 mL/min/1.73m??? Normal >=60 [facility] Comment on above: Order Comment: Abimbola diaz Type: BLOOD SPECIMENOrdering Facility: [facility] Address: [address] [place] [address] Result Comment: Ana Paula mated Glomerular Filtration [...] actual GFR. Performed By: #### 3 084-1, 43066-0, 6-4, 19740-0 ####[facility] LABCLIA [id number] [place] [id number] [place] Glucose [Mass/Vol] 138 mg/dL High 74-99 [facility] Comment on above: Order Comment: Abimbola diaz Type: BLOOD SPECIMENOrdering Facility: [facility] Address: [address] [place] [address] Result Comment: The [place] [employer] Association (ADA) provides guidance for cutoff [...] Standards of Medical Care in Diabetes 2016, [place] [employer]. Diabetes Care. 2016.39(Suppl 1). Performed By: #### 3 084-1, 84807-4, 6-4, 05591-9 ####[facility] LABCLIA [id number] [address] [address] [place] Phosphate [Mass/Vol] 4.0 mg/dL Normal 2.7-4.8 [facility] Comment on above: Order Comment: Speci men Type: BLOOD SPECIMENOrdering Facility: [facility] Address: [address] [place] [address] Performed By: #### 3 084-1, 47480-5, 2275-12, 11301-7 ####[facility] LABCLIA [id number] [address] [address] [place] Potassium [Moles/Vol] 4.7 mmol/L Normal 3.7-5.1 [facility] Comment on above: Order Comment: Speci men Type: BLOOD SPECIMENOrdering Facility: [facility] Address: [address] [place] [address] Performed By: #### 3 084-1, 74540-7, 2275-12, 04838-5 ####[facility] LABCLIA [id number] [place] [address] [place] Sodium [Moles/Vol] 137 mmol/L Normal 136-144 [facility] Comment on above: Order Comment: Speci men Type: BLOOD SPECIMENOrdering Facility: [facility] Address: [address] [place] [address] Performed By: #### 3 084-1, 87060-3, 2275-12, 83490-0 ####[facility] LABCLIA [id number] [place] [address] [place] Urea nitrogen [Mass/Vol] 18 mg/dL Normal 7-21 [facility] Comment on above: Order Comment: Speci men Type: BLOOD SPECIMENOrdering Facility: [facility] Address: [address] [place] [address] Performed By: #### 3 084-1, 80850-2, 2275-12, 90622-7 ####[facility] LABCLIA [id number] [address] [address] [place] Urate SerPl-mCncon 4 Urate [Mass/Vol] 3.9 mg/dL Normal 2.5-6.6 [facility] Comment on above: Order Comment: Speci men Type: BLOOD SPECIMENOrdering Facility: [facility] Address: [address] [place] [address] Performed By: #### 3 084-1, 07686-1, 2276-4, 86156-8 ####[facility] LABCLIA [id number] [facility] [address] [facility] CNPNon 04-12-2024 CNPN Telephone (FAMPWS) LEIDY BLANCO ([id number]) 1955 F Date Time Provider Department 04/12/24 PREET FARRAR FAMPWS During your visit today, [...] 04/12/2024 4:23 PM Addendum Glucose readings on J desk. Will await new glucose readings. LANDEN [...] adjust the dose at all. Notified nurse Ainsley to let Dr. Farrar know to review [...] ANTIBIOTICS) 12/29/2005 Date Reviewed: 03/21/2024 Reviewed by: Sahaar Mejia LPN - Fully Assessed Reason for Visit: Patient Update [1234] Cmt: Blood Sugar Readings Prescriptions as of 04/19/2024 - Insulin [place], Disposable, (PEN NEEDLE) 29 gauge x 1/2 [...] HYPERTENSION [ (more content not included)... Normal [facility] metabolic 2000 panelon 03-22-2024 Albumin [Mass/Vol] 4.3 g/dL 3.9 - 4.9 g/dL [facility] ALP [Catalytic activity/Vol] 99 U/L 34 - 123 U/L [facility] ALT [Catalytic activity/Vol] 16 U/L 7 - 38 U/L [facility] Anion gap [Moles/Vol] 16 mmol/L High 8 - 15 mmol/L [facility] AST [Catalytic activity/Vol] 27 U/L 13 - 35 U/L [facility] Bilirubin [Mass/Vol] 0.4 mg/dL 0.2 - 1 .3 mg/dL [facility] Calcium [Mass/Vol] 10.4 mg/dL High 8.5 - 10. 2 mg/dL [facility] Chloride [Moles/Vol] 98 mmol/L 98 - 10 7 mmol/L [facility] CO2 [Moles/Vol] 21 mmol/L Low 22 - 30 mmol/L [facility] Creatinine [Mass/Vol] 0.67 mg/dL 0.58 - 0.96 mg/dL [facility] GFR/1.73 sq M.predicted among non-blacks MDRD (S/P/Bld) [Vol rate/Area] 95 mL/min/{1.73_m2} - PINF [facility] Comment on above: Estimated Glomerular Filtration [...] 192 mg/dL High 74 - 99 mg/dL [facility] Comment on above: The [place] Diabete s Association (ADA) provides guidance for [...] Standards of Medical Care in Diabetes 2016, [place] [employer]. Diabetes Care. 2016.39(Suppl 1). Interpretation and review of laboratory results Abnormal [facility] Potassium [Moles/Vol] 4.9 mmol/L 3.7 - 5.1 mmol/L [facility] Protein [Mass/Vol] 7.4 g/dL 6.3 - 8.0 g/dL [facility] Sodium [Moles/Vol] 135 mmol/L Low 136 - 144 mmol/L [facility] Urea nitrogen [Mass/Vol] 17 mg/dL 7 - 21 mg/dL [facility] Free T4 [Mass/Vol]on 024 Interpretation and review of laboratory results Abnormal [facility] No Panel Informationon 03-22 [facility] T4 FREE/FREE THYROXINEon Free T4 [Mass/Vol] 0.7 ng/dL Low 0.9 - 1.7 ng/dL [facility] THYROID STIMULATING HORMONEo n 03-22-2024 TSH Qn 1.890 m[IU]/L [facility] TSH Qnon 03-22-2024 Interpretation and review of laboratory results Normal [facility] CBC W Auto Differential pane l (Bld)on 03-21-2024 Basophils (Bld) [#/Vol] 0.04 10*3/uL [facility] Basophils/100 WBC (Bld) 0.5 % [facility] Differential cell count method Nom (Bld) Auto [facility] Eosinophils (Bld) [#/Vol] 0.18 10*3/uL [facility] Eosinophils/100 WBC (Bld) 2.0 % [facility] Erythrocyte distribution width (RBC) [Ratio] 13.8 % 11.5 - 15.0 % [facility] Hematocrit (Bld) [Volume fraction] 40.9 % 36.0 - 46.0 % [facility] Hemoglobin (Bld) [Mass/Vol] 13.3 g/dL 11.5 - 15.5 g/dL [facility] Immature granulocytes (Bld) [#/Vol] 0.05 10*3/uL [facility] Immature granulocytes/100 WBC (Bld) 0.6 % [facility] Lymphocytes (Bld) [#/Vol] 2.12 10*3/uL [facility] Lymphocytes/100 WBC (Bld) 24.0 % [facility] MCH (RBC) [Entitic mass] 30.9 pg 26.0 - 34.0 pg [facility] MCHC (RBC) [Mass/Vol] 32.5 g/dL 30.5 - 36.0 g/dL [facility] MCV (RBC) [Entitic vol] 94.9 fL 80.0 - 100.0 fL [facility] Monocytes (Bld) [#/Vol] 0.60 10*3/uL [facility] Monocytes/100 WBC (Bld) 6.8 % [facility] Neutrophils (Bld) [#/Vol] 5.85 10*3/uL [facility] Neutrophils/100 WBC (Bld) 66.1 % [facility] Nucleated RBC (Bld) [#/Vol] NINF [facility] Nucleated RBC/100 WBC (Bld) [Ratio] 0.0 % /100 WBC [facility] Platelet mean volume (Bld) [Entitic vol] 9.6 fL 9.0 - 12.7 fL [facility] Platelets (Bld) [#/Vol] 387 10*3/uL [facility] RBC (Bld) [#/Vol] 4.31 10*6/uL 3.90 - 5.2 0 m/uL [facility] WBC (Bld) [#/Vol] 8.84 10*3/uL [facility] Bedside Glucoseon 03-09-2024 FINGERSTICK GLU 294 mg/dL High 74-106 [facility] Comment on above: Result Comment: CARIN GEMENT OF PATIENT CARE PER NURSING PROTOCOL Performed By: #### L 501.080 ####[facility] [address] [place], [place], [phone] FINGERSTICK GLU 250 mg/dL High 74-106 [facility] Comment on above: Result Comment: CARIN GEMENT OF PATIENT CARE PER NURSING PROTOCOL Performed By: #### L 501.080 ####[facility] [address] [place], [place], [phone] FINGERSTICK GLU 144 mg/dL High 74-106 [facility] Comment on above: Result Comment: CARIN GEMENT OF PATIENT CARE PER NURSING PROTOCOL Performed By: #### L 501.080 ####[facility] [address] [place], [address] CBC W/Diff, Automatedon 06-09 29-2023 Absolute Lymph 3.24 X10 3/uL Normal 0.83-4.51 [facility] Comment on above: Performed By: #### L 100.0100, L500.4050 ####[facility] [address] [place], [address] Absolute Neut 7.1 X10 3/uL Normal 2.0-7.7 [facility] Comment on above: Performed By: #### L 100.0100, L500.4050 ####[facility] [address] [place], [address] Basophils/100 WBC (Bld) 0.3 % Normal 0-1 [facility] Comment on above: Performed By: #### L 100.0100, L500.4050 ####[facility] [address] [place], [address] Eosinophils/100 WBC (Bld) 1.3 % Normal 0-5 [facility] Comment on above: Performed By: #### L 100.0100, L500.4050 ####[facility] [address] [place], [address] Erythrocyte distribution width (RBC) [Ratio] 12.4 % Normal 11.6-14.6 [facility] Comment on above: Performed By: #### L 100.0100, L500.4050 ####[facility] [address] [place], [address] Hematocrit (Bld) [Volume fraction] 34.4 % Low 37-47 [facility] Comment on above: Performed By: #### L 100.0100, L500.4050 ####[facility] [address] [place], [address] Hemoglobin (Bld) [Mass/Vol] 11.6 g/dL Low 12.0-15.0 [facility] Comment on above: Performed By: #### L 100.0100, L500.4050 ####[facility] [address] [place], [address] IG% 0.700 Normal 0.0-0.9 [facility] Comment on above: Result Comment: IG% - Immature Granulocytes (promyelocytes, myelocytes andmetamyelocytes) > 1% indicates that a LEFT SHIFT is Present. Performed By: #### L 100.0100, L500.4050 ####[facility] [address] [place], [address] Lymphocytes/100 WBC (Bld) 28.3 % Normal 19-41 [facility] Comment on above: Performed By: #### L 100.0100, L500.4050 ####[facility] [address] [place], [address] MCH (RBC) [Entitic mass] 30.5 pg Normal 27.0-32.0 [facility] Comment on above: Performed By: #### L 100.0100, L500.4050 ####[facility] [address] [place], [address] MCHC (RBC) [Mass/Vol] 33.7 g/dL Normal 32-36 [facility] Comment on above: Performed By: #### L 100.0100, L500.4050 ####[facility] [address] [place], [address] MCV (RBC) [Entitic vol] 90.5 fL Normal 81-99 [facility] Comment on above: Performed By: #### L 100.0100, L500.4050 ####[facility] [address] [place], [address] Monocytes/100 WBC (Bld) 7.4 % Normal 0-10 [facility] Comment on above: Performed By: #### L 100.0100, L500.4050 ####[facility] [address] [place], [address] Neutrophils/100 WBC (Bld) 62.0 % Normal 47-70 [facility] Comment on above: Performed By: #### L 100.0100, L500.4050 ####[facility] [address] [place], [address] Nucleated RBC (Bld) [#/Vol] 0 10*3/uL Normal 0-5 [facility] Comment on above: Performed By: #### L 100.0100, L500.4050 ####[facility] [address] [place], [address] Platelet mean volume (Bld) [Entitic vol] 9.4 fL Normal 6.2-12.0 [facility] Comment on above: Performed By: #### L 100.0100, L500.4050 ####[facility] [address] [place], [address] Platelets (Bld) [#/Vol] 288 10*3/uL Normal 150-450 [facility] Comment on above: Performed By: #### L 100.0100, L500.4050 ####[facility] [address] [place], [address] RBC (Bld) [#/Vol] 3.80 10*6/uL Low 4.2-5.4 [facility] Comment on above: Performed By: #### L 100.0100, L500.4050 ####[facility] [address] [place], [address] RDW SD 40.5 fl Normal 35.1-43.9 [facility] Comment on above: Performed By: #### L 100.0100, L500.4050 ####[facility] [address] [place], [address] WBC (Bld) [#/Vol] 11.5 10*3/uL High 4.4-11.0 [facility] Comment on above: Performed By: #### L 100.0100, L500.4050 ####[facility] [address] [place], [address] Comprehensive Metabolic Prof ilon 03-09-2024 Albumin [Mass/Vol] 2.9 g/dL Low 3.2-5.0 [facility] Comment on above: Performed By: #### L 100.0100, L500.4050 ####[facility] [address] [place], [address] Albumin/Globulin [Mass ratio] 1.1 {ratio} Normal 0.9-2.4 [facility] Comment on above: Performed By: #### L 100.0100, L500.4050 ####[facility] [address] [place], [address] ALK P 79 U/L Normal 45-117 [facility] Comment on above: Performed By: #### L 100.0100, L500.4050 ####[facility] [address] [place], [address] ALT [Catalytic activity/Vol] 25 U/L Normal 13-56 [facility] Comment on above: Performed By: #### L 100.0100, L500.4050 ####[facility] [address] [place], [address] AST [Catalytic activity/Vol] 21 U/L Normal 15-37 [facility] Comment on above: Performed By: #### L 100.0100, L500.4050 ####[facility] [address] [place], [address] Bilirubin [Mass/Vol] 0.80 mg/dL Normal 0.20-1.00 [facility] Comment on above: Result Comment: For patients on eltrombopag therapy, use of Dimension [place] TBIL is not recommended. Performed By: #### L 100.0100, L500.4050 ####[facility] [address] [place], [address] BUN/CRE 10.9 RATIO Normal 10-20 [facility] Comment on above: Performed By: #### L 100.0100, L500.4050 ####[facility] [address] [place], [address] CA,Total 8.1 mg/dL Low 8.5-10.1 [facility] Comment on above: Performed By: #### L 100.0100, L500.4050 ####[facility] [address] [place], [address] Chloride [Moles/Vol] 100 mmol/L Normal 98-107 [facility] Comment on above: Performed By: #### L 100.0100, L500.4050 ####[facility] [address] [place], [address] CO2 [Moles/Vol] 26.0 mmol/L Normal 21.0-32.0 [facility] Comment on above: Performed By: #### L 100.0100, L500.4050 ####[facility] [address] [place], [address] Creatinine [Mass/Vol] 0.73 mg/dL Normal 0.55-1.02 [facility] Comment on above: Result Comment: The validity of the calculated GFR GFRAA in patients over70 years has not been determined. Clinical correlation isessential. Performed By: #### L 100.0100, L500.4050 ####[facility] [address] [place], [address] ECRCL 59.85 ml/min Normal [facility] Comment on above: Performed By: #### L 100.0100, L500.4050 ####[facility] [address] [place], [address] EST GFR - AA 101 mL/min Normal >60 [facility] Comment on above: Result Comment: Afri can Nepalese GFR Calc Performed By: #### L 100.0100, L500.4050 ####[facility] [address] [place], [address] GAP 7 Normal 5-15 [facility] Comment on above: Performed By: #### L 100.0100, L500.4050 ####[facility] [address] [place], [address] GFR/1.73 sq M.predicted among non-blacks MDRD (S/P/Bld) [Vol rate/Area] 84 mL/min/{1.73_m2} Normal >60 [facility] Comment on above: Result Comment: Non- GFR Calc Performed By: #### L 100.0100, L500.4050 ####[facility] [address] [place], [address] Globulin (S) [Mass/Vol] 2.6 g/dL Normal 2.2-4.2 [facility] Comment on above: Performed By: #### L 100.0100, L500.4050 ####[facility] [address] [place], [address] Glucose [Mass/Vol] 278 mg/dL High 74-106 [facility] Comment on above: Result Comment: Gluc ose result greater than or equal to 200 mg/dLsuggests DIABETES MELLITUS per A.D.A. criteria. Performed By: #### L 100.0100, L500.4050 ####[facility] [address] [place], [address] Potassium [Moles/Vol] 2.9 mmol/L Low 3.5-5.1 [facility] Comment on above: Performed By: #### L 100.0100, L500.4050 ####[facility] [address] [place], [address] Sodium [Moles/Vol] 133 mmol/L Low 136-145 [facility] Comment on above: Performed By: #### L 100.0100, L500.4050 ####[facility] [address] [place], [address] T PROT 5.5 g/dL Low 6.4-8.2 [facility] Comment on above: Performed By: #### L 100.0100, L500.4050 ####[facility] [address] [place], [address] Urea nitrogen [Mass/Vol] 8 mg/dL Normal 7-18 [facility] Comment on above: Performed By: #### L 100.0100, L500.4050 ####[facility] [address] [place], [address] Abdomen Single View (Portabl e)on 03-08-2024 Abdomen Single View (Portable) Normal [facility] Bedside Glucoseon 03-08-2024 FINGERSTICK GLU 163 mg/dL High 74-106 [facility] Comment on above: Result Comment: CARIN GEMENT OF PATIENT CARE PER NURSING PROTOCOL Performed By: #### L 501.080 ####[facility] [address] [place], [address] FINGERSTICK GLU 217 mg/dL High 74-106 [facility] Comment on above: Result Comment: CARIN GEMENT OF PATIENT CARE PER NURSING PROTOCOL Performed By: #### L 501.080 ####[facility] [address] [place], [address] FINGERSTICK GLU 299 mg/dL High 74-106 [facility] Comment on above: Result Comment: CARIN GEMENT OF PATIENT CARE PER NURSING PROTOCOL Performed By: #### L 501.080 ####[facility] [address] [place], [address] FINGERSTICK GLU 240 mg/dL High 74-106 [facility] Comment on above: Result Comment: CARIN GEMENT OF PATIENT CARE PER NURSING PROTOCOL Performed By: #### L 501.080 ####[facility] [address] [place], [address] FINGERSTICK GLU 157 mg/dL High 74-106 [facility] Comment on above: Result Comment: CARIN GEMENT OF PATIENT CARE PER NURSING PROTOCOL Performed By: #### L 501.080 ####[facility] [address] [place], [address] FINGERSTICK GLU 189 mg/dL High 74-106 [facility] Comment on above: Result Comment: CARIN GEMENT OF PATIENT CARE PER NURSING PROTOCOL Performed By: #### L 501.080 ####[facility] [address] [place], [address] Basic Metabolic Profile (BMP )on 03-07-2024 BUN/CRE 24.9 RATIO High 10-20 [facility] Comment on above: Performed By: #### L 500.2500 ####[facility] [address] [place], [address] CA,Total 8.2 mg/dL Low 8.5-10.1 [facility] Comment on above: Performed By: #### L 500.2500 ####[facility] [address] [place], [address] Chloride [Moles/Vol] 99 mmol/L Normal 98-107 [facility] Comment on above: Performed By: #### L 500.2500 ####[facility] [address] [place], [address] CO2 [Moles/Vol] 27.0 mmol/L Normal 21.0-32.0 [facility] Comment on above: Performed By: #### L 500.2500 ####[facility] [address] [place], [address] Creatinine [Mass/Vol] 0.52 mg/dL Low 0.55-1.02 [facility] Comment on above: Result Comment: The validity of the calculated GFR GFRAA in patients over70 years has not been determined. Clinical correlation isessential. Performed By: #### L 500.2500 ####[facility] [address] [place], [address] ECRCL 59.85 ml/min Normal [facility] Comment on above: Performed By: #### L 500.2500 ####[facility] [address] [place], [address] EST GFR - AA 150 mL/min Normal >60 [facility] Comment on above: Result Comment: Afri can Nepalese GFR Calc Performed By: #### L 500.2500 ####[facility] [address] [place], [address] GAP 7 Normal 5-15 [facility] Comment on above: Performed By: #### L 500.2500 ####[facility] [address] [place], [address] GFR/1.73 sq M.predicted among non-blacks MDRD (S/P/Bld) [Vol rate/Area] 124 mL/min/{1.73_m2} Normal >60 [facility] Comment on above: Result Comment: Non- GFR Calc Performed By: #### L 500.2500 ####[facility] [address] [place], [address] Glucose [Mass/Vol] 224 mg/dL High 74-106 [facility] Comment on above: Result Comment: Gluc ose result greater than or equal to 200 mg/dLsuggests DIABETES MELLITUS per A.D.A. criteria. Performed By: #### L 500.2500 ####[facility] [address] [place], [address] Potassium [Moles/Vol] 3.2 mmol/L Low 3.5-5.1 [facility] Comment on above: Performed By: #### L 500.2500 ####[facility] [address] [place], [address] Sodium [Moles/Vol] 133 mmol/L Low 136-145 [facility] Comment on above: Performed By: #### L 500.2500 ####[facility] [address] [place], [address] Urea nitrogen [Mass/Vol] 13 mg/dL Normal 7-18 [facility] Comment on above: Performed By: #### L 500.2500 ####[facility] [address] [place], [address] Bedside Glucoseon 03-07-2024 FINGERSTICK GLU 197 mg/dL High 74-106 [facility] Comment on above: Result Comment: CARIN GEMENT OF PATIENT CARE PER NURSING PROTOCOL Performed By: #### L 501.080 ####[facility] [address] [place], [address] FINGERSTICK GLU 247 mg/dL High 74-106 [facility] Comment on above: Result Comment: CARIN GEMENT OF PATIENT CARE PER NURSING PROTOCOL Performed By: #### L 501.080 ####[facility] [address] [place], [address] FINGERSTICK GLU 169 mg/dL High 74-106 [facility] Comment on above: Result Comment: CARIN GEMENT OF PATIENT CARE PER NURSING PROTOCOL Performed By: #### L 501.080 ####[facility] [address] [place], [address] FINGERSTICK GLU 155 mg/dL High 74-106 [facility] Comment on above: Result Comment: CARIN GEMENT OF PATIENT CARE PER NURSING PROTOCOL Performed By: #### L 501.080 ####[facility] [address] [place], [address] FINGERSTICK GLU 200 mg/dL High 74-106 [facility] Comment on above: Result Comment: CARIN DYER OF PATIENT CARE PER NURSING PROTOCOL Performed By: #### L 501.080 ####[facility] [address] [place], [address] CBC W/Diff, Automatedon 06-1 0-2024 Absolute Lymph 2.92 X10 3/uL Normal 0.83-4.51 [facility] Comment on above: Performed By: #### L 100.0100 ####[facility] [address] [place], [address] Absolute Neut 10.9 X10 3/uL High 2.0-7.7 [facility] Comment on above: Performed By: #### L 100.0100 ####[facility] [address] [place], [address] Basophils/100 WBC (Bld) 0.3 % Normal 0-1 [facility] Comment on above: Performed By: #### L 100.0100 ####[facility] [address] [place], [address] Eosinophils/100 WBC (Bld) 0.2 % Normal 0-5 [facility] Comment on above: Performed By: #### L 100.0100 ####[facility] [address] [place], [address] Erythrocyte distribution width (RBC) [Ratio] 12.5 % Normal 11.6-14.6 [facility] Comment on above: Performed By: #### L 100.0100 ####[facility] [address] [place], [address] Hematocrit (Bld) [Volume fraction] 36.7 % Low 37-47 [facility] Comment on above: Performed By: #### L 100.0100 ####[facility] [address] [place], [address] Hemoglobin (Bld) [Mass/Vol] 12.7 g/dL Normal 12.0-15.0 [facility] Comment on above: Performed By: #### L 100.0100 ####[facility] [address] [place], [address] IG% 0.700 Normal 0.0-0.9 [facility] Comment on above: Result Comment: IG% - Immature Granulocytes (promyelocytes, myelocytes andmetamyelocytes) > 1% indicates that a LEFT SHIFT is Present. Performed By: #### L 100.0100 ####[facility] [address] [place], [address] Lymphocytes/100 WBC (Bld) 19.3 % Normal 19-41 [facility] Comment on above: Performed By: #### L 100.0100 ####[facility] [address] [place], [address] MCH (RBC) [Entitic mass] 30.8 pg Normal 27.0-32.0 [facility] Comment on above: Performed By: #### L 100.0100 ####[facility] [address] [place], [address] MCHC (RBC) [Mass/Vol] 34.6 g/dL Normal 32-36 [facility] Comment on above: Performed By: #### L 100.0100 ####[facility] [address] [place], [address] MCV (RBC) [Entitic vol] 89.1 fL Normal 81-99 [facility] Comment on above: Performed By: #### L 100.0100 ####[facility] [address] [place], [address] Monocytes/100 WBC (Bld) 7.7 % Normal 0-10 [facility] Comment on above: Performed By: #### L 100.0100 ####[facility] [address] [place], [address] Neutrophils/100 WBC (Bld) 71.8 % High 47-70 [facility] Comment on above: Performed By: #### L 100.0100 ####[facility] [address] [place], [address] Nucleated RBC (Bld) [#/Vol] 0 10*3/uL Normal 0-5 [facility] Comment on above: Performed By: #### L 100.0100 ####[facility] [address] [place], [address] Platelet mean volume (Bld) [Entitic vol] 9.7 fL Normal 6.2-12.0 [facility] Comment on above: Performed By: #### L 100.0100 ####[facility] [address] [place], [address] Platelets (Bld) [#/Vol] 304 10*3/uL Normal 150-450 [facility] Comment on above: Performed By: #### L 100.0100 ####[facility] [address] [place], [address] RBC (Bld) [#/Vol] 4.12 10*6/uL Low 4.2-5.4 [facility] Comment on above: Performed By: #### L 100.0100 ####[facility] [address] [place], [address] RDW SD 41.0 fl Normal 35.1-43.9 [facility] Comment on above: Performed By: #### L 100.0100 ####[facility] [address] [place], [address] WBC (Bld) [#/Vol] 15.1 10*3/uL High 4.4-11.0 [facility] Comment on above: Performed By: #### L 100.0100 ####[facility] [address] [place], [address] Culture, Blood (WB)on 2023 CUB No growth. Normal [facility] Comment on above: Performed By: #### M 200.1000 ####[facility] [address] [place], [address] Bedside Glucoseon 03-06-2024 FINGERSTICK GLU 211 mg/dL High 74-106 [facility] Comment on above: Result Comment: CARIN GEMENT OF PATIENT CARE PER NURSING PROTOCOL Performed By: #### L 501.080 ####[facility] [address] [place], [address] FINGERSTICK GLU 280 mg/dL High 74-106 [facility] Comment on above: Result Comment: CARIN GEMENT OF PATIENT CARE PER NURSING PROTOCOL Performed By: #### L 501.080 ####[facility] [address] [place], [address] FINGERSTICK GLU 248 mg/dL High 74-106 [facility] Comment on above: Result Comment: CARIN GEMENT OF PATIENT CARE PER NURSING PROTOCOL Performed By: #### L 501.080 ####[facility] [address] [place], [address] FINGERSTICK GLU 274 mg/dL High 74-106 [facility] Comment on above: Result Comment: CARIN GEMENT OF PATIENT CARE PER NURSING PROTOCOL Performed By: #### L 501.080 ####[facility] [address] [place], [address] FINGERSTICK GLU 300 mg/dL High 74-106 [facility] Comment on above: Result Comment: CARIN GEMENT OF PATIENT CARE PER NURSING PROTOCOL Performed By: #### L 501.080 ####[facility] [address] [place], [address] Bilirubin, Directon 03-06-20 24 Bilirubin.direct [Mass/Vol] 0.27 mg/dL Normal 0.00-0.30 [facility] Comment on above: Performed By: #### L 500.4050, L100.0100, L300.3900, L501.2300, L501.4700, L501.5200, L501.9520 ####[facility] [address] [place], [address] CBC W/Diff, Automatedon Absolute Lymph 1.97 X10 3/uL Normal 0.83-4.51 [facility] Comment on above: Performed By: #### L 500.4050, L100.0100, L300.3900, L501.2300, L501.4700, L501.5200, L501.9520 ####[facility] [address] [place], [address] Absolute Neut 13.9 X10 3/uL High 2.0-7.7 [facility] Comment on above: Performed By: #### L 500.4050, L100.0100, L300.3900, L501.2300, L501.4700, L501.5200, L501.9520 ####[facility] [address] [place], [address] Basophils/100 WBC (Bld) 0.2 % Normal 0-1 [facility] Comment on above: Performed By: #### L 500.4050, L100.0100, L300.3900, L501.2300, L501.4700, L501.5200, L501.9520 ####[facility] [address] [place], [address] Eosinophils/100 WBC (Bld) 0.0 % Normal 0-5 [facility] Comment on above: Performed By: #### L 500.4050, L100.0100, L300.3900, L501.2300, L501.4700, L501.5200, L501.9520 ####[facility] [address] [place], [address] Erythrocyte distribution width (RBC) [Ratio] 12.6 % Normal 11.6-14.6 [facility] Comment on above: Performed By: #### L 500.4050, L100.0100, L300.3900, L501.2300, L501.4700, L501.5200, L501.9520 ####[facility] [address] [place], [address] Hematocrit (Bld) [Volume fraction] 39.1 % Normal 37-47 [facility] Comment on above: Performed By: #### L 500.4050, L100.0100, L300.3900, L501.2300, L501.4700, L501.5200, L501.9520 ####[facility] [address] [place], [address] Hemoglobin (Bld) [Mass/Vol] 13.6 g/dL Normal 12.0-15.0 [facility] Comment on above: Performed By: #### L 500.4050, L100.0100, L300.3900, L501.2300, L501.4700, L501.5200, L501.9520 ####[facility] [address] [place], [address] IG% 0.500 Normal 0.0-0.9 [facility] Comment on above: Result Comment: IG% - Immature Granulocytes (promyelocytes, myelocytes andmetamyelocytes) > 1% indicates that a LEFT SHIFT is Present. Performed By: #### L 500.4050, L100.0100, L300.3900, L501.2300, L501.4700, L501.5200, L501.9520 ####[facility] [address] [place], [address] Lymphocytes/100 WBC (Bld) 11.5 % Low 19-41 [facility] Comment on above: Performed By: #### L 500.4050, L100.0100, L300.3900, L501.2300, L501.4700, L501.5200, L501.9520 ####[facility] [address] [place], [address] MCH (RBC) [Entitic mass] 30.9 pg Normal 27.0-32.0 [facility] Comment on above: Performed By: #### L 500.4050, L100.0100, L300.3900, L501.2300, L501.4700, L501.5200, L501.9520 ####[facility] [address] [place], [address] MCHC (RBC) [Mass/Vol] 34.8 g/dL Normal 32-36 [facility] Comment on above: Performed By: #### L 500.4050, L100.0100, L300.3900, L501.2300, L501.4700, L501.5200, L501.9520 ####[facility] [address] [place], [address] MCV (RBC) [Entitic vol] 88.9 fL Normal 81-99 [facility] Comment on above: Performed By: #### L 500.4050, L100.0100, L300.3900, L501.2300, L501.4700, L501.5200, L501.9520 ####[facility] [address] [place], [address] Monocytes/100 WBC (Bld) 7.1 % Normal 0-10 [facility] Comment on above: Performed By: #### L 500.4050, L100.0100, L300.3900, L501.2300, L501.4700, L501.5200, L501.9520 ####[facility] [address] [place], [address] Neutrophils/100 WBC (Bld) 80.7 % High 47-70 [facility] Comment on above: Performed By: #### L 500.4050, L100.0100, L300.3900, L501.2300, L501.4700, L501.5200, L501.9520 ####[facility] [address] [place], [address] Nucleated RBC (Bld) [#/Vol] 0 10*3/uL Normal 0-5 [facility] Comment on above: Performed By: #### L 500.4050, L100.0100, L300.3900, L501.2300, L501.4700, L501.5200, L501.9520 ####[facility] [address] [place], [address] Platelet mean volume (Bld) [Entitic vol] 9.8 fL Normal 6.2-12.0 [facility] Comment on above: Performed By: #### L 500.4050, L100.0100, L300.3900, L501.2300, L501.4700, L501.5200, L501.9520 ####[facility] [address] [place], [address] Platelets (Bld) [#/Vol] 318 10*3/uL Normal 150-450 [facility] Comment on above: Performed By: #### L 500.4050, L100.0100, L300.3900, L501.2300, L501.4700, L501.5200, L501.9520 ####[facility] [address] [place], [address] RBC (Bld) [#/Vol] 4.40 10*6/uL Normal 4.2-5.4 [facility] Comment on above: Performed By: #### L 500.4050, L100.0100, L300.3900, L501.2300, L501.4700, L501.5200, L501.9520 ####[facility] [address] [place], [address] RDW SD 41.1 fl Normal 35.1-43.9 [facility] Comment on above: Performed By: #### L 500.4050, L100.0100, L300.3900, L501.2300, L501.4700, L501.5200, L501.9520 ####[facility] [address] [place], [place], [id number] WBC (Bld) [#/Vol] 17.2 10*3/uL High 4.4-11.0 [facility] Comment on above: Performed By: #### L 500.4050, L100.0100, L300.3900, L501.2300, L501.4700, L501.5200, L501.9520 ####[facility] [address] [place], [place], [id number] Comprehensive Metabolic Prof mion 03-06-2024 Albumin [Mass/Vol] 3.1 g/dL Low 3.2-5.0 [facility] Comment on above: Performed By: #### L 500.4050, L100.0100, L300.3900, L501.2300, L501.4700, L501.5200, L501.9520 ####[facility] [address] [place], [place], [id number] Albumin/Globulin [Mass ratio] 1.0 {ratio} Normal 0.9-2.4 [facility] Comment on above: Performed By: #### L 500.4050, L100.0100, L300.3900, L501.2300, L501.4700, L501.5200, L501.9520 ####[facility] [address] [place], [address] ALK P 91 U/L Normal 45-117 [facility] Comment on above: Performed By: #### L 500.4050, L100.0100, L300.3900, L501.2300, L501.4700, L501.5200, L501.9520 ####[facility] [address] [place], [address] ALT [Catalytic activity/Vol] 24 U/L Normal 13-56 [facility] Comment on above: Performed By: #### L 500.4050, L100.0100, L300.3900, L501.2300, L501.4700, L501.5200, L501.9520 ####[facility] [address] [place], [address] AST [Catalytic activity/Vol] 24 U/L Normal 15-37 [facility] Comment on above: Performed By: #### L 500.4050, L100.0100, L300.3900, L501.2300, L501.4700, L501.5200, L501.9520 ####[facility] [address] [place], [address] Bilirubin [Mass/Vol] 1.00 mg/dL Normal 0.20-1.00 [facility] Comment on above: Result Comment: For patients on eltrombopag therapy, use of Dimension [place] TBIL is not recommended. Performed By: #### L 500.4050, L100.0100, L300.3900, L501.2300, L501.4700, L501.5200, L501.9520 ####[facility] [address] [place], [address] BUN/CRE 57.6 RATIO High 10-20 [facility] Comment on above: Performed By: #### L 500.4050, L100.0100, L300.3900, L501.2300, L501.4700, L501.5200, L501.9520 ####[facility] [address] [place], [address] CA,Total 8.8 mg/dL Normal 8.5-10.1 [facility] Comment on above: Performed By: #### L 500.4050, L100.0100, L300.3900, L501.2300, L501.4700, L501.5200, L501.9520 ####[facility] [address] [place], [address] Chloride [Moles/Vol] 97 mmol/L Low 98-107 [facility] Comment on above: Performed By: #### L 500.4050, L100.0100, L300.3900, L501.2300, L501.4700, L501.5200, L501.9520 ####[facility] [address] [place], [address] CO2 [Moles/Vol] 29.0 mmol/L Normal 21.0-32.0 [facility] Comment on above: Performed By: #### L 500.4050, L100.0100, L300.3900, L501.2300, L501.4700, L501.5200, L501.9520 ####[facility] [address] [place], [address] Creatinine [Mass/Vol] 0.61 mg/dL Normal 0.55-1.02 [facility] Comment on above: Result Comment: The validity of the calculated GFR GFRAA in patients over70 years has not been determined. Clinical correlation isessential. Performed By: #### L 500.4050, L100.0100, L300.3900, L501.2300, L501.4700, L501.5200, L501.9520 ####[facility] [address] [place], [address] ECRCL 59.85 ml/min Normal [facility] Comment on above: Performed By: #### L 500.4050, L100.0100, L300.3900, L501.2300, L501.4700, L501.5200, L501.9520 ####[facility] [address] [place], [address] EST GFR - AA 126 mL/min Normal >60 [facility] Comment on above: Result Comment: Afri can Nepalese GFR Calc Performed By: #### L 500.4050, L100.0100, L300.3900, L501.2300, L501.4700, L501.5200, L501.9520 ####[facility] [address] [place], [place], [id number](017) GAP 5 Normal 5-15 [facility] Comment on above: Performed By: #### L 500.4050, L100.0100, L300.3900, L501.2300, L501.4700, L501.5200, L501.9520 ####[facility] [address] [place], [address] GFR/1.73 sq M.predicted among non-blacks MDRD (S/P/Bld) [Vol rate/Area] 104 mL/min/{1.73_m2} Normal >60 [facility] Comment on above: Result Comment: Non- GFR Calc Performed By: #### L 500.4050, L100.0100, L300.3900, L501.2300, L501.4700, L501.5200, L501.9520 ####[facility] [address] [place], [address] Globulin (S) [Mass/Vol] 3.1 g/dL Normal 2.2-4.2 [facility] Comment on above: Performed By: #### L 500.4050, L100.0100, L300.3900, L501.2300, L501.4700, L501.5200, L501.9520 ####[facility] [address] [place], [address] Glucose [Mass/Vol] 308 mg/dL High 74-106 [facility] Comment on above: Result Comment: Gluc ose result greater than or equal to 200 mg/dLsuggests DIABETES MELLITUS per A.D.A. criteria. Performed By: #### L 500.4050, L100.0100, L300.3900, L501.2300, L501.4700, L501.5200, L501.9520 ####[facility] [address] [place], [address] Potassium [Moles/Vol] 3.3 mmol/L Low 3.5-5.1 [facility] Comment on above: Performed By: #### L 500.4050, L100.0100, L300.3900, L501.2300, L501.4700, L501.5200, L501.9520 ####[facility] [address] [place], [address] Sodium [Moles/Vol] 131 mmol/L Low 136-145 [facility] Comment on above: Performed By: #### L 500.4050, L100.0100, L300.3900, L501.2300, L501.4700, L501.5200, L501.9520 ####[facility] [address] [place], [address] T PROT 6.2 g/dL Low 6.4-8.2 [facility] Comment on above: Performed By: #### L 500.4050, L100.0100, L300.3900, L501.2300, L501.4700, L501.5200, L501.9520 ####[facility] [address] [place], [address] Urea nitrogen [Mass/Vol] 35 mg/dL High 7-18 [facility] Comment on above: Performed By: #### L 500.4050, L100.0100, L300.3900, L501.2300, L501.4700, L501.5200, L501.9520 ####[facility] [address] [place], [address] Hemoglobin A1con 03-06-2024 HbA1c (Bld) [Mass fraction] 6.8 % High 3.8-5.6 [facility] Comment on above: Result Comment: Norm al < 5.7 % Prediabetic 5.7 - 6.4 % Diabetic >or= 6.5 % Please note range changes. Performed By: #### L 501.9911 ####[facility] [address] [place], [address] Magnesiumon 03-06-2024 Magnesium [Mass/Vol] 2.2 mg/dL Normal 1.6-2.6 [facility] Comment on above: Performed By: #### L 500.4050, L100.0100, L300.3900, L501.2300, L501.4700, L501.5200, L501.9520 ####[facility] [address] [place], [address] Phosphoruson 03-06-2024 Phosphate [Mass/Vol] 1.8 mg/dL Low 2.5-4.9 [facility] Comment on above: Performed By: #### L 500.4050, L100.0100, L300.3900, L501.2300, L501.4700, L501.5200, L501.9520 ####[facility] [address] [place], [address] Prothrombin Time w/INRon INR Coag (PPP) [Relative time] 1.1 {INR} Normal [facility] Comment on above: Performed By: #### L 500.4050, L100.0100, L300.3900, L501.2300, L501.4700, L501.5200, L501.9520 ####[facility] [address] [place], [address] PT Coag (PPP) [Time] 14.0 s Normal 11.7-14.9 [facility] Comment on above: Performed By: #### L 500.4050, L100.0100, L300.3900, L501.2300, L501.4700, L501.5200, L501.9520 ####[facility] [address] [place], [address] Thyroid Stim Hormone (TSH)on 03-06-2024 TSH 0.27 uIU/mL Low 0.358-3.74 [facility] Comment on above: Performed By: #### L 500.4050, L100.0100, L300.3900, L501.2300, L501.4700, L501.5200, L501.9520 ####[facility] [address] [place], [address] Acetone Serumon 03-05-2024 ACETONE SERUM Negative Normal NEG [facility] Comment on above: Performed By: #### L 500.2500, L501.6900, L100.0100 ####[facility] [address] [place], [address] Basic Metabolic Profile (BMP )on 03-05-2024 BUN/CRE 48.4 RATIO High 10-20 [facility] Comment on above: Performed By: #### L 500.2500, L501.6900, L100.0100 ####[facility] [address] [place], [address] CA,Total 9.6 mg/dL Normal 8.5-10.1 [facility] Comment on above: Performed By: #### L 500.2500, L501.6900, L100.0100 ####[facility] [address] [place], [address] Chloride [Moles/Vol] 92 mmol/L Low 98-107 [facility] Comment on above: Performed By: #### L 500.2500, L501.6900, L100.0100 ####[facility] [address] [place], [address] CO2 [Moles/Vol] 22.0 mmol/L Normal 21.0-32.0 [facility] Comment on above: Performed By: #### L 500.2500, L501.6900, L100.0100 ####[facility] [address] [place], [address] Creatinine [Mass/Vol] 1.26 mg/dL High 0.55-1.02 [facility] Comment on above: Result Comment: The validity of the calculated GFR GFRAA in patients over70 years has not been determined. Clinical correlation isessential. Performed By: #### L 500.2500, L501.6900, L100.0100 ####[facility] [address] [place], [address] ECRCL 37.63 ml/min Normal [facility] Comment on above: Performed By: #### L 500.2500, L501.6900, L100.0100 ####[facility] [address] [place], [address] EST GFR - AA 54 mL/min Low >60 [facility] Comment on above: Result Comment: Afri can Nepalese GFR Calc Performed By: #### L 500.2500, L501.6900, L100.0100 ####[facility] [address] [place], [address] GAP 13 Normal 5-15 [facility] Comment on above: Performed By: #### L 500.2500, L501.6900, L100.0100 ####[facility] [address] [place], [address] GFR/1.73 sq M.predicted among non-blacks MDRD (S/P/Bld) [Vol rate/Area] 45 mL/min/{1.73_m2} Low >60 [facility] Comment on above: Result Comment: Non- GFR Calc Performed By: #### L 500.2500, L501.6900, L100.0100 ####[facility] [address] [place], [address] Glucose [Mass/Vol] 490 mg/dL Invalid Interpretation Code 74-106 [facility] Comment on above: Result Comment: Crit ical Result(s) Called at: 13:42:33 03/05/2024 by: Too Quinones RN (ER). Results read back by same.Glucose result greater than or equal to 200 mg/dLsuggests DIABETES MELLITUS per A.D.A. criteria. Performed By: #### L 500.2500, L501.6900, L100.0100 ####[facility] [address] [place], [address] Potassium [Moles/Vol] 3.8 mmol/L Normal 3.5-5.1 [facility] Comment on above: Performed By: #### L 500.2500, L501.6900, L100.0100 ####[facility] [address] [place], [address] Sodium [Moles/Vol] 127 mmol/L Low 136-145 [facility] Comment on above: Performed By: #### L 500.2500, L501.6900, L100.0100 ####[facility] [address] [place], [address] Urea nitrogen [Mass/Vol] 61 mg/dL High 7-18 [facility] Comment on above: Performed By: #### L 500.2500, L501.6900, L100.0100 ####[facility] [address] [place], [address] Bedside Glucoseon 03-05-2024 FINGERSTICK GLU 212 mg/dL High [address] [place] [address] Comment on above: Result Comment: CARIN GEMENT OF PATIENT CARE PER NURSING PROTOCOL Performed By: #### L 501.080 ####[facility] [address] [place], [address] FINGERSTICK GLU 302 mg/dL High [address] [place] [address] Comment on above: Result Comment: CARIN GEMENT OF PATIENT CARE PER NURSING PROTOCOL Performed By: #### L 501.080 ####[facility] [address] [place], [address] FINGERSTICK GLU 315 mg/dL High [address] [place] [address] Comment on above: Result Comment: CARIN GEMENT OF PATIENT CARE PER NURSING PROTOCOL Performed By: #### L 501.080 ####[facility] [address] [place], [address] FINGERSTICK GLU 483 mg/dL Invalid Interpretation Code -[address] [place] [address] Comment on above: Result Comment: Dr Esvin celis FollowedMANAGEMENT OF PATIENT CARE PER NURSING PROTOCOL Performed By: #### L 501.080 ####[facility] [address] [place], [address] CBC W/Diff, Automatedon 06-0 Absolute Lymph 3.17 X10 3/uL Normal 0.83-4.51 [facility] Comment on above: Performed By: #### L 500.2500, L501.6900, L100.0100 ####[facility] [address] [place], [address] Absolute Neut 21.9 X10 3/uL High 2.0-7.7 [facility] Comment on above: Performed By: #### L 500.2500, L501.6900, L100.0100 ####[facility] [address] [place], [address] Emergency Department Summary on 03-05-2024 Emergency Department Summary Normal [facility] H AND P Exam - Hospitaliston 03-05-2024 H&P Exam - Hospitalist Normal [facility] Urinalysis, Completeon 03-05 EPI,SQUAMOUS 0-5 SEEN Normal 5-10 [facility] Comment on above: Order Comment: ELVIA CTOR TO SPECIFY Performed By: #### L 400.0001 ####[facility] [address] [place], [address] BACTERIA 0 SEEN Normal None Seen [facility] Comment on above: Order Comment: ELVIA CTOR TO SPECIFY Performed By: #### L 400.0001 ####[facility] [address] [place], [address] Mucus Ql (Urine sed) 0 SEEN Normal [facility] Comment on above: Order Comment: ELVIA CTOR TO SPECIFY Performed By: #### L 400.0001 ####[facility] [address] [place], [address] RBC 0 SEEN Normal 0-5 [facility] Comment on above: Order Comment: ELVIA CTOR TO SPECIFY Performed By: #### L 400.0001 ####[facility] [address] [place], [address] WBC 0 SEEN Normal 0-5 [facility] Comment on above: Order Comment: ELVIA CTOR TO SPECIFY Performed By: #### L 400.0001 ####[facility] [address] [place], [address] HEMOGLOBIN A1C (POC)on 01-05 HbA1c (Bld) [Mass fraction] 6.5 % Abnormal 4.3 - 5.6 % [facility] GLUCOSE, BLOOD (POC)on 01-01 Glucose [Mass/Vol] 140 mg/dL Abnormal 74 - 99 mg/dL [facility] UA DIP, URINE (POC)on 2023 BILIRUBIN UA (POCT) Negative Negative [facility] CLARITY UA (POCT) Clear [facility] COLOR UA (POCT) Yellow [facility] GLUCOSE UA (POCT) >=1000 Abnormal Negative mg/dL [facility] Hemoglobin Ql (U) Small Abnormal Negative [facility] KETONE UA (POCT) Negative Negative mg/dL [facility] LEUKOCYTES UA (POCT) Negative [facility] (POCT) Negative Negative [facility] PH UA (POCT) 5.0 4.5 - 8.0 [facility] Protein Ql (U) Negative Negative mg/dL [facility] SPECIFIC GRAVITY UA (POCT) 1.010 1.005 - 1.030 [facility] UROBILINOGEN UA (POCT) 0.2 E.U./dL Lisbeth l E.U./dL [facility] No Panel InformationOrdered By: Sean Bradley on 12-14-2023 Estimated GFR (MDRD) Amer 97 mL/min >60 [facility] Comment on above: GFR Calc Estimated GFR (MDRD) Non-Af Amer 80 mL/min >60 [facility] Comment on above: Non- GFR Calc Serum or plasma creatinine m easurement (mass/volume)Ordered By: Sean Bradley on 12-14-2023 Creatinine [Mass/Vol] 0.76 mg/dL 0.55-1.02 [facility] Comment on above: The validity of the calculated GFR & GFRAA in patients over 70 years has not been determined. Clinical correlation is essential. Serum or plasma urea nitroge n measurement (mass/volume)Ordered By: Sean Bradley on 12-14-2023 Urea nitrogen [Mass/Vol] 22 mg/dL 04-14 [facility] TROPHSon 11-25-2023 Troponin I High Sensitivity 4.86 ng/L Normal 0.00-34.00 [facility] ([place]) Comment on above: Performed By: #### T [facility] ####[place] [address] .Auto Diffon 11-24-2023 Basophil, Absolute 0.1 10 3/mcL Normal 0.0-0.3 [facility] ([place]) Comment on above: Performed By: #### P BNP, BMP, CBC, GFR, ANEU, TROPHS, MDW, ADIFF #### [address] [address] Basophils/100 WBC (Bld) 0.6 % Normal 0.0-2.5 A [facility] ([place]) Comment on above: Performed By: #### P BNP, BMP, CBC, GFR, ANEU, TROPHS, MDW, ADIFF #### [address] [address] Eosinophil, Absolute 0.2 10 3/mcL Normal 0.0-0.7 [facility] ([place]) Comment on above: Performed By: #### P BNP, BMP, CBC, GFR, ANEU, TROPHS, MDW, ADIFF #### [address] [address] Eosinophils/100 WBC (Bld) 2.0 % Normal 0.0-6.0 [facility] ([place]) Comment on above: Performed By: #### P BNP, BMP, CBC, GFR, ANEU, TROPHS, MDW, ADIFF #### [address] [address] Lymphocyte, Absolute 2.6 10 3/mcL Normal 0.9-4.3 [facility] ([place]) Comment on above: Performed By: #### P BNP, BMP, CBC, GFR, ANEU, TROPHS, MDW, ADIFF #### [address] [address] Lymphocytes/100 WBC (Bld) 22.2 % Normal 20.0-40.0 [facility] ([place]) Comment on above: Performed By: #### P BNP, BMP, CBC, GFR, ANEU, TROPHS, MDW, ADIFF #### [address] [address] Monocyte, Absolute 0.9 10 3/mcL Normal 0.1-1.4 [facility] ([place]) Comment on above: Performed By: #### P BNP, BMP, CBC, GFR, ANEU, TROPHS, MDW, ADIFF #### [address] [address] Monocytes/100 WBC (Bld) 7.6 % Normal 2.0-13.0 A [facility] ([place]) Comment on above: Performed By: #### P BNP, BMP, CBC, GFR, ELIZABETH VARGAS MDW, ADIFF #### [address] [address] Neutrophils/100 WBC (Bld) 67.6 % Normal 50.0-75.0 [facility] ([place]) Comment on above: Performed By: #### P BNP, BMP, CBC, GFR, ELIZABETH VARGAS MDW, ADIFF #### [address] [address] .GFRon 11-24-2023 GFR >60 Normal [facility] ([place]) Comment on above: Result Comment: GFR Population [...] CBC, GFR, ELIZABETH VARGAS MDW, ADIFF #### [address] [address] GFR Non- >60 Normal [facility] ([place]) Comment on above: Result Comment: GFR Population [...] CBC, GFR, ELIZABETH VARGAS MDW, ADIFF #### [address] [address] .MDWon 11-24-2023 Monocyte Distribution Width 17.57 Normal 0.00-20.00 [facility] ([place]) Comment on above: Result Comment: For ED adult patients suspected of sepsis, MDW<=20.0 does not rule out sepsis or risk of sepsis Performed By: #### P BNP, BMP, CBC, GFR, ELIZABETH VARGAS MDW, ADIFF #### [address] [address] .NEUABSon 11-24-2023 Neutrophil, Absolute 8.0 10 3/mcL Normal 2.3-8.1 [facility] ([place]) Comment on above: Performed By: #### P BNP, BMP, CBC, GFR, ELIZABETH VARGAS MDW, ADIFF #### [address] [address] BMPon 11-24-2023 BUN/Creatinine Ratio 23.4 ratio High 10.0-22.0 [facility] ([place]) Comment on above: Performed By: #### P BNP, BMP, CBC, GFR, ELIZABETH VARGAS MDW, ADIFF #### [place] [id number] Calcium [Mass/Vol] 9.9 mg/dL Normal 8.7-10.4 [facility] ([place]) Comment on above: Performed By: #### P BNP, BMP, CBC, GFR, ELIZABETH VARGAS MDW, ADIFF #### [place] [id number] Chloride [Moles/Vol] 106 mmol/L Normal 98-110 [facility] ([place]) Comment on above: Performed By: #### P BNP, BMP, CBC, GFR, ELIZABETH VARGAS MDW, ADIFF #### [address] [address] CO2 [Moles/Vol] 25 mmol/L Normal 22-32 [facility] ([place]) Comment on above: Performed By: #### P BNP, BMP, CBC, GFR, ELIZABETH VARGAS MDW, ADIFF #### [address] [address] Creatinine [Mass/Vol] 0.64 mg/dL Normal 0.50-1.20 [facility] ([place]) Comment on above: Performed By: #### P BNP, BMP, CBC, GFR, ELIZABETH VARGAS MDW, ADIFF #### [address] [address] Electrolyte Balance 5.0 mEq/L Normal 4.0-15.0 [facility] ([place]) Comment on above: Performed By: #### P BNP, BMP, CBC, GFR, SAM, GANGA JOHNSON, ADIFF #### [address] [address] Glucose [Mass/Vol] 158 mg/dL High 82-115 [facility] ([place]) Comment on above: Performed By: #### P BNP, BMP, CBC, GFR, ELIZABETH VARGAS MDW, ADIFF #### [address] [address] Potassium [Moles/Vol] 3.9 mmol/L Normal 3.5-5.0 [facility] ([place]) Comment on above: Result Comment: Spec imen slightly hemolyzed. Performed By: #### P BNP, BMP, CBC, GFR, SAM, GANGA JOHNSON, ADIFF #### [address] [address] Sodium [Moles/Vol] 136 mmol/L Normal 136-145 [facility] ([place]) Comment on above: Performed By: #### P BNP, BMP, CBC, GFR, ELIZABETH VARGAS MDW, ADIFF #### [address] [address] Urea nitrogen [Mass/Vol] 15.0 mg/dL Normal 8.0-22.0 [facility] ([place]) Comment on above: Performed By: #### P BNP, BMP, CBC, GFR, ANEU, TROPHS, MDW, ADIFF #### [address] [address] CBCon 11-24-2023 Erythrocyte distribution width (RBC) [Ratio] 14.3 % Normal 11.5-15.5 [facility] ([place]) Comment on above: Performed By: #### P BNP, BMP, CBC, GFR, ANEU, TROPHS, MDW, ADIFF #### [place] [id number] Hematocrit (Bld) [Volume fraction] 40.9 % Normal 34.0-46.0 [facility] ([place]) Comment on above: Performed By: #### P BNP, BMP, CBC, GFR, ANEU, TROPHS, MDW, ADIFF #### [place] [id number] Hgb 13.7 G/dL Normal 12.0-16.0 [facility] ([place]) Comment on above: Performed By: #### P BNP, BMP, CBC, GFR, ANEU, TROPHS, MDW, ADIFF #### [address] [address] MCH (RBC) [Entitic mass] 29.9 pg Normal 27.0-33.0 [facility] ([place]) Comment on above: Performed By: #### P BNP, BMP, CBC, GFR, ANEU, TROPHS, MDW, ADIFF #### [place] [id number] MCHC 33.5 G/dL Normal 32.0-36.0 [facility] ([place]) Comment on above: Performed By: #### P BNP, BMP, CBC, GFR, ANEU, TROPHS, W, ADIFF #### [place] [id number] MCV (RBC) [Entitic vol] 89.5 fL Normal 80.0-99.0 [facility] ([place]) Comment on above: Performed By: #### P BNP, BMP, CBC, GFR, ANEU, TROPHS, MDW, ADIFF #### [address] [address] Platelet 365 10 3/mcL Normal 150-450 [facility] ([place]) Comment on above: Performed By: #### P BNP, BMP, CBC, GFR, ANEU, ELIZABETH, GANGA, ADIFF #### [address] [address] Platelet mean volume (Bld) [Entitic vol] 7.7 fL Normal 6.6-10.5 [facility] ([place]) Comment on above: Performed By: #### P BNP, BMP, CBC, GFR, ANEU, ELIZABETH, GANGA, ADIFF #### [address] [address] RBC 4.58 10 6/mcL Normal 4.10-5.30 [facility] ([place]) Comment on above: Performed By: #### P BNP, BMP, CBC, GFR, ANEU, ELIZABETH, GANGA, ADIFF #### [address] [address] WBC 11.8 10 3/mcL High 4.5-10.8 [facility] ([place]) Comment on above: Performed By: #### P BNP, BMP, CBC, GFR, ANEU, ELIZABETH, GANGA, ADIFF #### [address] [address] LABORATORYOrdered By: SYSTEM SYSTEM on 11-24-2023 Troponin I.cardiac DL <= 0.01 ng/mL [Mass/Vol] 4.86 ng/L Normal 0.00 - 34.00 ng/L ADM SS Basophils (Bld) [#/Vol] 0.1 103/mcL Normal 0.0 - 0.3 10^3/mcL AH Workflow SS Basophils/100 WBC (Bld) 0.6 % Normal 0.0 - 2.5 % Workflow SS Calcium [Mass/Vol] 9.9 mg/dL Normal 8.7 - 10. 4 mg/dL ADM SS Chloride [Moles/Vol] 106 mmol/L Normal 98 - 11 0 mEq/L AH ADM SS CO2 [Moles/Vol] 25 mmol/L Normal 22 - 32 mEq/L AH ADM SS Creatinine [Mass/Vol] 0.64 mg/dL Normal 0.50 - 1.20 mg/dL ADM SS Electrolyte Balance 5.0 mEq/L Normal 4.0 - 15 .0 mEq/L ADM SS Eosinophils (Bld) [#/Vol] 0.2 103/mcL Normal 0.0 - 0.7 10^3/mcL Workflow SS Eosinophils/100 WBC (Bld) 2.0 % Normal 0.0 - 6.0 % Workflow SS Erythrocyte distribution width (RBC) [Ratio] 14.3 % Normal 11.5 - 15.5 % Workflow SS GFR/1.73 sq M.predicted among blacks MDRD (S/P/Bld) [Vol rate/Area] ml/min/1.73sqm Invalid Interpretation Code ADM Comment on above: Interpretive Data: GFR Population [...] (S/P/Bld) [Vol rate/Area] ml/min/1.73sqm Invalid Interpretation Code [facility] Comment on above: Interpretive Data: GFR Population [...] 2.6 103/mcL Normal 0.9 - 4.3 10^3/mcL AH Workflow SS Lymphocytes/100 WBC (Bld) 22.2 % Normal 20.0 - 40.0 % AH Workflow SS Magnesium [Mass/Vol] 1.8 mg/dL Normal 1.6 - 2 .4 mg/dL ADM SS MCH (RBC) [Entitic mass] 29.9 pg Normal 27.0 - 33.0 pg AH Workflow SS MCHC 33.5 G/dL Normal 32.0 - 36.0 G/dL Workflow SS MCV (RBC) [Entitic vol] 89.5 fL Normal 80.0 - 99.0 fL Workflow SS Monocyte distribution width Auto (Bld) [Entitic vol] 17.57 1 Normal 0.00 - 20.00 Workflow SS Comment on above: Result Comment: [...] 67.6 % Normal 50.0 - 75.0 % Workflow SS Platelet mean volume (Bld) [Entitic vol] 7.7 fL Normal 6.6 - 10.5 fL Workflow SS Platelets (Bld) [#/Vol] 365 103/mcL Normal 150 - 450 10^3/mcL Workflow SS Potassium [Moles/Vol] 3.9 mmol/L Normal 3.5 - 5.0 mEq/L ADM SS Comment on above: Result Comment: Spec imen slightly hemolyzed. RBC (Bld) [#/Vol] 4.58 106/mcL Normal 4.10 - 5.3 0 10^6/mcL Workflow SS Sodium [Moles/Vol] 136 mmol/L Normal 136 - 145 mEq/L ADM SS Troponin I.cardiac DL <= 0.01 ng/mL [Mass/Vol] 4.59 ng/L Normal 0.00 - 34.00 ng/L ADM SS Urea nitrogen [Mass/Vol] 15.0 mg/dL Normal 8.0 - 22.0 mg/dL ADM SS Urea nitrogen/Creatinine [Mass ratio] 23.4 ratio High 10.0 - 22.0 ratio ADM SS WBC (Bld) [#/Vol] 11.8 103/mcL High 4.5 - 10.8 10^3/mcL Workflow SS LABORATORYOrdered By: Sherry Pan on 11-24-2023 Natriuretic peptide.B prohormone N-Terminal [Mass/Vol] 39 pg/mL Normal 0 - 900 pg/mL Auto Chem SS Comment on above: Interpretive Data: N T-proBNP results of less than 300 pg/mL effectively rules out acute congestive heart failure with 99% negative predictive value. MGon 11-24-2023 Magnesium [Mass/Vol] 1.8 mg/dL Normal 1.6-2.4 [facility] ([place]) Comment on above: Performed By: #### M G #### [address] [address] PBNPon 11-24-2023 Natriuretic peptide B (Bld) [Mass/Vol] 39 pg/mL Normal 0-900 [facility] ([place]) Comment on above: Result Comment: NT-p roBNP results of less than 300 pg/mL effectively rules out acute congestive heart failure with 99% negative predictive value. Performed By: #### P BNP, BMP, CBC, GFR, ELIZABETH VARGAS MDW, ADIFF #### [address] [address] TROPHSon 11-24-2023 Troponin I High Sensitivity 4.59 ng/L Normal 0.00-34.00 [facility] ([place]) Comment on above: Performed By: #### P BNP, BMP, CBC, GFR, ELIZABETH VARGAS MDW, KIRILL #### [place] [address] XR CHEST 1 VIEWon 11-24-2023 XR CHEST [...] 11/24/2023 7:08:29 PM Ordering Provider: RICKY Crews [facility] ([place]) CBC W Auto Differential pane l (Bld)on 11-13-2023 Basophils (Bld) [#/Vol] 0.06 10*3/uL <0.11 k/uL [facility] Basophils/100 WBC (Bld) 0.6 % [facility] Differential cell count method Nom (Bld) Auto [facility] Eosinophils (Bld) [#/Vol] 0.08 10*3/uL <0.46 k/uL [facility] Eosinophils/100 WBC (Bld) 0.8 % [facility] Erythrocyte distribution width (RBC) [Ratio] 13.0 % 11.5 - 15.0 % [facility] Hematocrit (Bld) [Volume fraction] 41.7 % 36.0 - 46.0 % [facility] Hemoglobin (Bld) [Mass/Vol] 14.0 g/dL 11.5 - 15.5 g/dL [facility] Immature granulocytes (Bld) [#/Vol] 0.03 10*3/uL <0.10 k/uL [facility] Immature granulocytes/100 WBC (Bld) 0.3 % [facility] Lymphocytes (Bld) [#/Vol] 1.73 10*3/uL 1.00 - 4.00 k/uL [facility] Lymphocytes/100 WBC (Bld) 17.5 % [facility] MCH (RBC) [Entitic mass] 30.9 pg 26.0 - 34.0 pg [facility] MCHC (RBC) [Mass/Vol] 33.6 g/dL 30.5 - 36.0 g/dL [facility] MCV (RBC) [Entitic vol] 92.1 fL 80.0 - 100.0 fL [facility] Monocytes (Bld) [#/Vol] 0.63 10*3/uL <0.87 k/uL [facility] Monocytes/100 WBC (Bld) 6.4 % [facility] Neutrophils (Bld) [#/Vol] 7.35 10*3/uL 1.45 - 7.50 k/uL [facility] Neutrophils/100 WBC (Bld) 74.4 % [facility] Nucleated RBC (Bld) [#/Vol] <0.01 k/uL [facility] Nucleated RBC/100 WBC (Bld) [Ratio] 0.0 /100 WBC [facility] Platelet mean volume (Bld) [Entitic vol] 9.9 fL 9.0 - 12.7 fL [facility] Platelets (Bld) [#/Vol] 368 10*3/uL 150 - 400 k/uL [facility] RBC (Bld) [#/Vol] 4.53 10*6/uL 3.90 - 5.2 0 m/uL [facility] WBC (Bld) [#/Vol] 9.88 10*3/uL 3.70 - 11. 00 k/uL [facility] HbA1c (Bld)on 11-13-2023 Average glucose Estimated from glycated hemoglobin (Bld) [Mass/Vol] 140 mg/dL [facility] HbA1c (Bld) [Mass fraction] 6.5 % High 4.3 - 5.6 % [facility] Basophil percentageOrdered B y: Kenton Galeanamariana on 07-27-2023 Chloride [Moles/Vol] 104 mmol/L 98-107 [facility] Glucose [Mass/Vol] 120 mg/dL 74-106 [facility] Comment on above: Fasting Glucose resu lt from 100 to 125 mg/dL suggests IMPAIRED HOMEOSTASIS per A.D.A. criteria. Potassium [Moles/Vol] 3.1 mmol/L 3.5-5.1 [facility] Sodium [Moles/Vol] 136 mmol/L 136-145 [facility] Laboratory - Chemistry and C hemistry - challengeOrdered By: Kenton Stapleton on 07-27-2023 CO2 [Moles/Vol] 26.0 mmol/L 21.0-32.0 [facility] Urea nitrogen/Creatinine [Mass ratio] 20.1 mg/mg 10-20 [facility] No Panel InformationOrdered By: Kenton Stapleton on 07-27-2023 Estimated GFR (MDRD) Amer 117 mL/min >60 [facility] Comment on above: GFR Calc Estimated GFR (MDRD) Non-Af Amer 97 mL/min >60 [facility] Comment on above: Non- GFR Calc Serum or plasma calcium mulugeta urement (mass/volume)Ordered By: Kenton Stapleton on 07-27-2023 Calcium [Mass/Vol] 9.4 mg/dL 8.5-10.1 [facility] Serum or plasma creatinine m easurement (mass/volume)Ordered By: Kenton Stapleton on 07-27-2023 Creatinine [Mass/Vol] 0.65 mg/dL 0.55-1.02 [facility] Comment on above: The validity of the calculated GFR & GFRAA in patients over 70 years has not been determined. Clinical correlation is essential. Serum or plasma urea nitroge n measurement (mass/volume)Ordered By: Kenton Stapleton on 07-27-2023 Urea nitrogen [Mass/Vol] 13 mg/dL 7-18 [facility] Thin prep Papanicolaou smear with manual screeningOrdered By: Kenton Stapleton on 07-27-2023 Thin prep Papanicolaou smear with manual screening 6 5-15 [facility] Absolute lymphocyte countOrd ered By: Abisai Fuentes on 07-03-2023 Lymphocytes Auto (Unsp spec) [#/Vol] 4.06 10*3/uL 0.83-4.51 [facility] Basophil percentageOrdered B y: Abisai Fuentes on 07-03-2023 Basophils/100 WBC (Bld) 0.3 % 0-1 [facility] Chloride [Moles/Vol] 104 mmol/L 98-107 [facility] Eosinophils/100 WBC (Bld) 2.8 % 0-5 [facility] Glucose [Mass/Vol] 94 mg/dL 74-106 [facility] Neutrophils (Bld) [#/Vol] 5.5 10*3/uL 2.0-7.7 [facility] Neutrophils/100 WBC (Bld) 50.1 % 47-70 [facility] Potassium [Moles/Vol] 3.1 mmol/L 3.5-5.1 [facility] Sodium [Moles/Vol] 135 mmol/L 136-145 [facility] WBC (Bld) [#/Vol] 10.9 10*3/uL 4.4-11.0 [facility] Blood erythrocytes count (nu mber/volume)Ordered By: Abisai Fuentes on 07-03-2023 RBC (Bld) [#/Vol] 3.60 10*6/uL 4.2-5.4 [facility] Blood hemoglobin measurement (mass/volume)Ordered By: Abisai Fuentes on 07-03-2023 Hemoglobin (Bld) [Mass/Vol] 10.9 g/dL 12.0-15.0 [facility] Blood lymphocytes/100 leukoc ytesOrdered By: Abisai Fuentes on 07-03-2023 Lymphocytes/100 WBC (Bld) 37.2 % 19-41 [facility] Blood monocytes/100 leukocyt esOrdered By: Abisai Fuentes on 07-03-2023 Monocytes/100 WBC (Bld) 9.0 % 0-10 [facility] Blood platelet mean volumeOr dered By: Abisai Fuentes on 07-03-2023 Platelet mean volume (Bld) [Entitic vol] 9.4 fL 6.2-12.0 [facility] Determination of erythrocyte mean corpuscular volume (MCV)Ordered By: Abisai Fuentes on 07-03-2023 MCV (RBC) [Entitic vol] 90.6 fL 81-99 [facility] Glucose Glucometer (BldC) [M ass/Vol]Ordered By: Abiasi Fuentes on 07-03-2023 Glucose [Mass/Vol] 194 mg/dL 74-106 [facility] Comment on above: MANAGEMENT OF PATIEN T CARE PER NURSING PROTOCOL Hematocrit Auto (Bld) [Volum e fraction]Ordered By: Abisai Fuentes on 07-03-2023 Hematocrit (Bld) [Volume fraction] 32.6 % 37-47 [facility] Laboratory - Chemistry and C hemistry - challengeOrdered By: Abisai Fuentes on 07-03-2023 CO2 [Moles/Vol] 27.0 mmol/L 21.0-32.0 [facility] Urea nitrogen/Creatinine [Mass ratio] 11.3 mg/mg 10-20 [facility] Laboratory - Hematology and Cell countsOrdered By: Abisai Fuentes on 07-03-2023 Erythrocyte distribution width (RBC) [Entitic vol] 40.6 fL 35.1-43.9 [facility] Erythrocyte distribution width (RBC) [Ratio] 12.3 % 11.6-14.6 [facility] Immature granulocytes/100 WBC (Bld) 0.600 % 0.0-0.9 [facility] Comment on above: IG% - Immature Granu locytes (promyelocytes, myelocytes and metamyelocytes) > 1% indicates that a LEFT SHIFT is Present. MCH (RBC) [Entitic mass] 30.3 pg 27.0-32.0 [facility] Nucleated RBC/100 WBC (Bld) [Ratio] 0 % 0-5 [facility] MCHC Auto (RBC) [Mass/Vol]Or dered By: Abisai Fuentes on 07-03-2023 MCHC (RBC) [Mass/Vol] 33.4 g/dL 32-36 [facility] Comment on above: Delta: 35.5 on 07/02 No Panel InformationOrdered By: Abisai Fuentes on 07-03-2023 Estimated Creatinine Clearance Calc 39.21 ml/min [facility] Estimated GFR (MDRD) Amer 147 mL/min >60 [facility] Comment on above: GFR Calc Estimated GFR (MDRD) Non-Af Amer 121 mL/min >60 [facility] Comment on above: Non- GFR Calc Platelets bldOrdered By: Davon Fuentes on 07-03-2023 Platelets (Bld) [#/Vol] 315 10*3/uL 150-450 [facility] Serum or plasma calcium mulugeta urement (mass/volume)Ordered By: Abisai Fuentes on 07-03-2023 Calcium [Mass/Vol] 7.4 mg/dL 8.5-10.1 [facility] Serum or plasma creatinine m easurement (mass/volume)Ordered By: Abisai Fuentes on 07-03-2023 Creatinine [Mass/Vol] 0.53 mg/dL 0.55-1.02 [facility] Comment on above: The validity of the calculated GFR & GFRAA in patients over 70 years has not been determined. Clinical correlation is essential. Serum or plasma urea nitroge n measurement (mass/volume)Ordered By: Abisai Fuentes on 07-03-2023 Urea nitrogen [Mass/Vol] 6 mg/dL 7-18 [facility] Thin prep Papanicolaou smear with manual screeningOrdered By: Abisai Fuentes on 07-03-2023 Thin prep Papanicolaou smear with manual screening 4 5-15 [facility] Basophil percentageOrdered B y: Halley Hodges on 07-02-2023 Bilirubin [Mass/Vol] 0.60 mg/dL 0.20-1.00 [facility] Comment on above: For patients on eltr ombopag therapy, use of Dimension [place] TBIL is not recommended. Cholesterol [Mass/Vol] 74 mg/dL <200 [facility] Comment on above: <200 mg/dL Desirable 200-240 mg/dL Borderline >240 mg/dL High Risk Protein [Mass/Vol] 4.9 g/dL 6.4-8.2 [facility] Triglyceride [Mass/Vol] 116 mg/dL <199 [facility] Comment on above: The drugs N-Acetylcy steine and Metamizole may falsely depress this assay.Serum Triglycerides Reference Interval Normal <150 mg/dL Borderline high 150 - 199 mg/dL High 200 - 499 mg/dL Very High > or = 500 mg/dL Laboratory - Chemistry and C hemistry - challengeOrdered By: Halley Hodges on 07-02-2023 ALP [Catalytic activity/Vol] 75 U/L 45-117 [facility] ALT [Catalytic activity/Vol] 18 U/L 13-56 [facility] Free T4 [Mass/Vol] 0.68 ng/dL 0.76-1.46 [facility] Globulin (S) [Mass/Vol] 2.4 g/dL 2.2-4.2 [facility] No Panel InformationOrdered By: Halley Hodges on 07-02-2023 Thyroid Stimulating Hormone (TSH) 0.82 uIU/mL 0.358-3.74 [facility] Troponin I High Sensitivity 79 pg/mL 3.0-54.0 [facility] Comment on above: Please Note: New [place] t Units and Gender Specific Reference Ranges. For more information see Policy Stat Procedure [place] High Sensitivity Troponin (TNIH) and attachments. Serum or plasma albumin mulugeta urement (mass/volume)Ordered By: Halley Hodges on 07-02-2023 Albumin [Mass/Vol] 2.5 g/dL 3.2-5.0 [facility] Serum or plasma albumin/glob ulin mass ratioOrdered By: [facility] Tracie on 07-02-2023 Albumin/Globulin [Mass ratio] 1.0 {ratio} 0.9-2.4 [facility] Serum or plasma cholesterol in HDL measurement (mass/volume)Ordered By: [facility] Tracie on 07-02-2023 Cholesterol in HDL [Mass/Vol] 42 mg/dL >40 [facility] Comment on above: The drugs N-Acetylcy steine and Metamizole may falsely depress this assay. Reference Range HDL <40 mg/dL Low HDL Cholesterol HDL >or= 60 mg/dL High HDL Cholesterol Serum or plasma cholesterol in VLDL measurement (mass/volume)Ordered By: Halley Hodges on 07-02-2023 Cholesterol in VLDL [Mass/Vol] 23 mg/dL 5-40 [facility] Serum or plasma low density lipoprotein (LDL) cholesterol measurement (mass/volume)Ordered By: [facility] Tracie 07-02-2023 Cholesterol in LDL [Mass/Vol] 9 mg/dL 0-130 [facility] Stool enteric pathogen panel by probe and target amplification methodOrdered By: [facility] Tracie on 07-02-2023 Gastrointestinal pathogens panel NELL+probe (Stl) [facility] Thin prep Papanicolaou smear with manual screeningOrdered By: Halley Tracie on 07-02-2023 Thin prep Papanicolaou smear with manual screening 16 U/L 15-37 [facility] Basophil percentageOrdered B y: Иван Valencia on 07-01-2023 Basophil percentage 0-5 SEEN /hpf 0-5 [facility] Bilirubin Test strip Ql (U)O rdered By: Иван Valencia on 07-01-2023 Bilirubin Ql (U) Negative Negative [facility] INR in Blood by Coagulation assayOrdered By: Иван Valencia on 07-01-2023 INR Coag (Bld) [Relative time] 1.0 {INR} [facility] Ketones Test strip Ql (U)Ord ered By: Иван Valencia on 07-01-2023 Ketones Ql (U) Negative Negative [facility] Laboratory - Chemistry and C hemistry - challengeOrdered By: Halley Hodges on 07-01-2023 Magnesium [Mass/Vol] 2.3 mg/dL 1.6-2.6 [facility] Laboratory - CoagulationOrde red By: Иван Valencia on 07-01-2023 aPTT Coag (Bld) [Time] 26.0 s 24.1-36.2 [facility] PT Coag (PPP) [Time] 13.5 s 11.7-14.9 [facility] Mucus LM Ql (Urine sed)Order ed By: Иван Valencia on 07-01-2023 Mucus Ql (Urine sed) 0 SEEN /hpf [facility] Nitrite Test strip Ql (U)Ord ered By: Иван Valencia on 07-01-2023 Nitrite Ql (U) Negative Negative [facility] Protein Test strip Ql (U)Ord ered By: Иван Valencia on 07-01-2023 Protein Ql (U) Negative Negative [facility] Respiratory pathogens detect ion panel by molecular detection methodOrdered By: Halley Hodges 07-01-2023 Respiratory pathogens DNA and RNA panel NELL+probe (Resp) [facility] Serum procalcitonin measurem entOrdered By: Halley Hodges on 07-01-2023 Procalcitonin [Mass/Vol] ng/mL 0.00-0.09 [facility] Comment on above: A procalcitonin (PCT ) level above 2.0 ng/mL on the first day of ICU admission is associated with a high risk for progression to severe sepsis and/or septic shock. A PCT level below 0.5 ng/mL on the first day of ICU admission is associated with a low risk for progression to severe and/or septic shock. Note: Concentrations <0.5 ng/mL do not exclude an infection on account of localized infections (without systemic signs) which can be associated with such low concentrations, or a systemic infection in its initial stages (<6 hours). Furthermore, increased procalcitonin can occur without infection. PCT concentrations between 0.5 and 2.0 ng/mL should be interpreted taking into account the patient's history. It is recommended to retest PCT within 6-24 hours if any concentrations <2 ng/mL are obtained. Squamous epithelial cells de tection in urine sediment by light microscopyOrdered By: Иван Valencia on 07-01-2023 Epithelial cells.squamous LM Ql (Urine sed) 0-5 SEEN /hpf 5-10 [facility] Urine blood detectionOrdered By: Иван Valencia on 07-01-2023 RBC Ql (U) 10 /ul Negative [facility] RBC Ql (U) 0 SEEN /hpf 0-5 [facility] Urine clarityOrdered By: Nimesh Valencia on 07-01-2023 Clarity (U) Clear Clear [facility] Urine color determinationOrd ered By: Иван Valencia on 07-01-2023 Color (U) Yellow Yellow [facility] Urine glucose detectionOrder ed By: Иван Valencia on 07-01-2023 Glucose Ql (U) Normal mg/dl Normal [facility] Urine leukocyte esterase det ection by dipstickOrdered By: Иван Valencia on 07-01-2023 Leukocyte esterase Test strip Ql (U) Negative Negative [facility] Urine pHOrdered By: Иван Valencia on 07-01-2023 pH (U) 6.5 [pH] 5.0 - 8.0 [facility] Urine sediment bacteria coun t by microscopy (number/high power field)Ordered By: Иван Valencia on 07-01-2023 Bacteria LM.HPF (Urine sed) [#/Area] 0 /[HPF] None Seen [facility] Urine specific gravity measu rementOrdered By: Иван Valencia on 07-01-2023 Specific gravity (U) [Rel density] 1.010 1.002-1.030 [facility] Urobilinogen Auto test strip Ql (U)Ordered By: Иван Valencia on 07-01-2023 Urobilinogen Ql (U) Normal mg/dl Normal [facility] Absolute lymphocyte countOrd ered By: Dr. Dallas on 11-04-2022 Lymphocytes Auto (Unsp spec) [#/Vol] 2.30 10*3/uL 0.83-4.51 [facility] Basophil percentageOrdered B y: Dr. Dallas on 11-04-2022 Basophils/100 WBC (Bld) 0.6 % 0-1 [facility] Chloride [Moles/Vol] 104 mmol/L 98-107 [facility] Eosinophils/100 WBC (Bld) 2.7 % 0-5 [facility] Glucose [Mass/Vol] 174 mg/dL 74-106 [facility] Comment on above: Fasting Glucose resu lt greater than or equal to 126 mg/dL suggests DIABETES MELLITUS per A.D.A. criteria. Neutrophils (Bld) [#/Vol] 6.2 10*3/uL 2.0-7.7 [facility] Neutrophils/100 WBC (Bld) 64.4 % 47-70 [facility] Potassium [Moles/Vol] 3.9 mmol/L 3.5-5.1 [facility] Sodium [Moles/Vol] 137 mmol/L 136-145 [facility] WBC (Bld) [#/Vol] 9.7 10*3/uL 4.4-11.0 [facility] Blood erythrocytes count (nu mber/volume)Ordered By: Dr. Dallas on 11-04-2022 RBC (Bld) [#/Vol] 4.71 10*6/uL 4.2-5.4 [facility] Blood hemoglobin measurement (mass/volume)Ordered By: Dr. Dallas on 11-04-2022 Hemoglobin (Bld) [Mass/Vol] 14.2 g/dL 12.0-15.0 [facility] Blood lymphocytes/100 leukoc ytesOrdered By: Dr. Dallas on 11-04-2022 Lymphocytes/100 WBC (Bld) 23.8 % 19-41 [facility] Blood monocytes/100 leukocyt esOrdered By: Dr. Dallas on 11-04-2022 Monocytes/100 WBC (Bld) 8.0 % 0-10 [facility] Blood platelet mean volumeOr dered By: Dr. Dallas on 11-04-2022 Platelet mean volume (Bld) [Entitic vol] 9.4 fL 6.2-12.0 [facility] Determination of erythrocyte mean corpuscular volume (MCV)Ordered By: Dr. Dallas on 11-04-2022 MCV (RBC) [Entitic vol] 92.6 fL 81-99 [facility] Glucose Glucometer (BldC) [M ass/Vol]Ordered By: Dr. Dallas on 11-04-2022 Glucose [Mass/Vol] 175 mg/dL 74-106 [facility] Comment on above: MANAGEMENT OF PATIEN T CARE PER NURSING PROTOCOL Hematocrit Auto (Bld) [Volum e fraction]Ordered By: Dr. Dallas on 11-04-2022 Hematocrit (Bld) [Volume fraction] 43.6 % 37-47 [facility] Laboratory - Chemistry and C hemistry - challengeOrdered By: Dr. Dallas on 11-04-2022 CO2 [Moles/Vol] 25.0 mmol/L 21.0-32.0 [facility] Urea nitrogen/Creatinine [Mass ratio] 20.9 mg/mg 10-20 [facility] Laboratory - Hematology and Cell countsOrdered By: Dr. Dallas on 11-04-2022 Erythrocyte distribution width (RBC) [Entitic vol] 44.3 fL 35.1-43.9 [facility] Erythrocyte distribution width (RBC) [Ratio] 13.1 % 11.6-14.6 [facility] Immature granulocytes/100 WBC (Bld) 0.500 % 0.0-0.9 [facility] Comment on above: IG% - Immature Granu locytes (promyelocytes, myelocytes and metamyelocytes) > 1% indicates that a LEFT SHIFT is Present. MCH (RBC) [Entitic mass] 30.1 pg 27.0-32.0 [facility] Nucleated RBC/100 WBC (Bld) [Ratio] 0 % 0-5 [facility] MCHC Auto (RBC) [Mass/Vol]Or dered By: Dr. Dallas on 11-04-2022 MCHC (RBC) [Mass/Vol] 32.6 g/dL 32-36 [facility] No Panel InformationOrdered By: Dr. Dallas on 11-04-2022 Estimated Creatinine Clearance Calc 39.21 ml/min [facility] Estimated GFR (MDRD) Amer 135 mL/min >60 [facility] Comment on above: GFR Calc Estimated GFR (MDRD) Non-Af Amer 111 mL/min >60 [facility] Comment on above: Non- GFR Calc Platelets bldOrdered By: Dr. Dallas on 11-04-2022 Platelets (Bld) [#/Vol] 325 10*3/uL 150-450 [facility] Serum or plasma calcium mulugeta urement (mass/volume)Ordered By: Dr. Dallas on 11-04-2022 Calcium [Mass/Vol] 9.4 mg/dL 8.5-10.1 [facility] Serum or plasma creatinine m easurement (mass/volume)Ordered By: Dr. Dallas on 11-04-2022 Creatinine [Mass/Vol] 0.58 mg/dL 0.55-1.02 [facility] Comment on above: The validity of the calculated GFR & GFRAA in patients over 70 years has not been determined. Clinical correlation is essential. Serum or plasma urea nitroge n measurement (mass/volume)Ordered By: Dr. Dallas on 11-04-2022 Urea nitrogen [Mass/Vol] 12 mg/dL 7-18 [facility] Thin prep Papanicolaou smear with manual screeningOrdered By: Dr. Dallas on 11-04-2022 Thin prep Papanicolaou smear with manual screening 8 5-15 [facility] Basophil percentageOrdered B y: Dr. Mirza on 11-03-2022 Cholesterol [Mass/Vol] 183 mg/dL <200 [facility] Comment on above: <200 mg/dL Desirable 200-240 mg/dL Borderline >240 mg/dL High Risk Triglyceride [Mass/Vol] 146 mg/dL <199 [facility] Comment on above: The drugs N-Acetylcy steine and Metamizole may falsely depress this assay.Serum Triglycerides Reference Interval Normal <150 mg/dL Borderline high 150 - 199 mg/dL High 200 - 499 mg/dL Very High > or = 500 mg/dL Serum or plasma cholesterol in HDL measurement (mass/volume)Ordered By: Dr. Mirza on 11-03-2022 Cholesterol in HDL [Mass/Vol] 55 mg/dL >40 [facility] Comment on above: The drugs N-Acetylcy steine and Metamizole may falsely depress this assay. Reference Range HDL <40 mg/dL Low HDL Cholesterol HDL >or= 60 mg/dL High HDL Cholesterol Serum or plasma cholesterol in VLDL measurement (mass/volume)Ordered By: Dr. Mirza on 11-03-2022 Cholesterol in VLDL [Mass/Vol] 29 mg/dL 5-40 [facility] Serum or plasma low density lipoprotein (LDL) cholesterol measurement (mass/volume)Ordered By: Dr. Mirza on 11-03-2022 Cholesterol in LDL [Mass/Vol] 99 mg/dL 0-130 [facility] Whole blood hemoglobin A1c/t otal hemoglobin ratio (mass fraction)Ordered By: Dr. Mirza on 11-03-2022 HbA1c (Bld) [Mass fraction] 7.0 % 3.8-5.6 [facility] Comment on above: Normal < 5.7 % Predi abetic 5.7 - 6.4 % Diabetic >or= 6.5 % Please note range changes. INR in Blood by Coagulation assayOrdered By: Dr. Chanel on 11-02-2022 INR Coag (Bld) [Relative time] 1.0 {INR} [facility] Laboratory - CoagulationOrde red By: Dr. Chanel on 11-02-2022 aPTT Coag (Bld) [Time] 29.8 s 24.1-36.2 [facility] PT Coag (PPP) [Time] 12.9 s 11.7-14.9 [facility] No Panel InformationOrdered By: Dr. Mirza on 11-02-2022 Troponin I High Sensitivity 12 pg/mL 3.0-54.0 [facility] Comment on above: Please Note: New Deanna t Units and Gender Specific Reference Ranges. For more information see Policy Stat Procedure [place] High Sensitivity Troponin (TNIH) and attachments. Basophil percentageon 2021 Basophil percentage < 0.9 mg/dL 0.55-1.02 [facility] Work Phone: No Panel Informationon 04-09 Bedside Estimated GFR (eGFR) > 60.0000 mL/min >60 [facility] Work Phone: XR ANKLE GENERAL 3V AP/LAT/O BL LEFTon 02-28-2022 [facility] XR ANKLE GENERAL 3V AP/LAT/O BL LEFTon 02-10-2022 [facility] XR ANKLE GENERAL 3V AP/LAT/O BL LEFTon 01-23-2022 [facility] XR Ankle - left AP and Later al and obliqueon 01-23-2022 IMPRESSION: Possible small fracture involving the inferior aspect of the lateral malleolus. Calcaneal spurring. Water Taxi Driver: AUGUSTIN Transcribe Date/Time: Jan 23 2022 5:55P Dictated by : RODRIGO GONSALVES MD This examination was interpreted and the report reviewed and electronically signed by: RODRIGO GONSALVES MD on Jan 23 2022 5:59PM EST ZZZ_DO_NOT_U _DIVISION OF RADIOLOGY * * *Final Report* * [...] noted adjacent to the lateral malleolus. ZZZ_DO_NOT_U _DIVISION OF RADIOLOGY Provider, [facility] - 01/23/2022 * * *Final Report* * [...] aspect of the lateral malleolus. Calcaneal spurring. Water Taxi Driver: AUGUSTIN Transcribe Date/Time: Jan 23 2022 5:55P Dictated by : RODRIGO GONSALVES MD This examination was interpreted and the report reviewed and electronically signed by: RODRIGO GONSALVES MD on Jan 23 2022 5:59PM EST [facility] Radiology Study observation (narrative) [facility] XR Ankle - left AP and Later al and obliqueOrdered By: [facility] Provider on 01-23-2022 [facility] Glucose,Bedsideon 12-28-2020 Glucose [Mass/Vol] 344 mg/dL High 70-100 [facility] Comment on above: Result Comment: Test performed by glucose meter. Results may be 10%-15% lower than serum/plasma values. (CLIA ID [id number]) Performed By: #### B GLU #### [facility] [employer] [address] [address] Glucose [Mass/Vol] 200 mg/dL High 70-100 [facility] Comment on above: Result Comment: Test performed by glucose meter. Results may be 10%-15% lower than serum/plasma values. (CLIA ID [id number]) Performed By: #### B GLU #### [facility] [address] [address] POCT Glucoseon 12-28-2020 Glucose [Mass/Vol] 344 mg/dL High 70 - 100 mg/dL [facility] Work Phone: Comment on above: Test performed by gl ucose meter. Results may be 10%-15% lower than serum/plasma values. (CLIA ID [id number]) Interpretation and review of laboratory results Abnormal [facility] Work Phone: Test Performed by [employer], [address] [place] [id number] [place] [address] Work Phone: Glucose [Mass/Vol] 200 mg/dL High 70 - 100 mg/dL [facility] Work Phone: Comment on above: Test performed by gl ucose meter. Results may be 10%-15% lower than serum/plasma values. (CLIA ID [id number]) Interpretation and review of laboratory results Abnormal [facility] Work Phone: [facility] [id number] [place] [address] Work Phone: COVID-19on 12-27-2020 SARS-CoV-2 Not Detected. Not Detected [facility] Work Phone: Comment on above: Not Detected. Expected Result: Not Detected _ Real-time, RT-PCR performed on the [employer] by the [facility] Service Negative results do not preclude SARS-CoV-2 infection and should not be used as the sole basis for treatment or other patient management decisions. This assay was developed and its performance characteristics determined by the [facility]. The U. S. Food and Drug Administration has not approved or cleared this test; however, FDA clearance or approval is not currently required for clinical use. [facility] by [facility] [address] [address] Glucose,Bedsideon 12-27-2020 Glucose [Mass/Vol] 124 mg/dL High 70-100 [facility] Comment on above: Result Comment: Test performed by glucose meter. Results may be 10%-15% lower than serum/plasma values. (CLIA ID [id number]) Performed By: #### B GLU #### [address] [address] Glucose [Mass/Vol] 197 mg/dL High 70-100 [facility] Comment on above: Result Comment: Test performed by glucose meter. Results may be 10%-15% lower than serum/plasma values. (CLIA ID [id number]) Performed By: #### B GLU #### [address] [address] Glucose [Mass/Vol] 215 mg/dL High 70-100 [facility] Comment on above: Result Comment: Test performed by glucose meter. Results may be 10%-15% lower than serum/plasma values. (CLIA ID [id number]) Performed By: #### B GLU #### [employer] [address] [place] [address] POCT Glucoseon 12-27-2020 Glucose [Mass/Vol] 124 mg/dL High 70 - 100 mg/dL [facility] Work Phone: Comment on above: Test performed by gl ucose meter. Results may be 10%-15% lower than serum/plasma values. (CLIA ID [id number]) Interpretation and review of laboratory results Abnormal [facility] Work Phone: [phone] Test Performed by [employer], [address] [place] [address] [facility] Work Phone: Glucose [Mass/Vol] 197 mg/dL High 70 - 100 mg/dL [facility] Work Phone: Comment on above: Test performed by gl ucose meter. Results may be 10%-15% lower than serum/plasma values. (CLIA ID [id number]) Interpretation and review of laboratory results Abnormal [facility] Work Phone: Test Performed by [employer], [address] [place] [address] [facility] Work Phone: Glucose [Mass/Vol] 215 mg/dL High 70 - 100 mg/dL [facility] Work Phone: Comment on above: Test performed by gl ucose meter. Results may be 10%-15% lower than serum/plasma values. (CLIA ID [id number]) Interpretation and review of laboratory results Abnormal [facility] Work Phone: Test Performed by [employer], [address] [place] [address] [facility] Work Phone: [id number] 12-27-2020 SARS-CoV-2 (COVID-19) RNA NELL+probe Ql (Unsp spec) SARS-CoV-2 --> Status: F Not Detected. Expected Result: Not Detected _ Real-time, RT-PCR performed on the [employer] by the [facility] Negative results do not preclude SARS-CoV-2 infection and should not be used as the sole basis for treatment or other patient management decisions. This assay was developed and its performance characteristics determined by the [facility]. The U. S. Food and Drug Administration has not approved or cleared this test; however, FDA clearance or approval is not currently required for clinical use. Expected Result: Not Detected _ Real-time, RT-PCR performed on the [employer] System by the [facility]biology [facility] Negative results do not preclude SARS-CoV-2 infection and should not be used as the sole basis for treatment or other patient management decisions. This assay was developed and its performance characteristics determined by the [facility]. The U. S. Food and Drug Administration has not approved or cleared this test; however, FDA clearance or approval is not currently required for clinical use. Normal [facility] Comment on above: Performed By: #### B GLU #### [facility] [address] [place] [address] Glucose,Bedsideon 12-26-2020 Glucose [Mass/Vol] 186 mg/dL High [address] [facility] Comment on above: Result Comment: Test performed by glucose meter. Results may be 10%-15% lower than serum/plasma values. (CLIA ID [id number]) Performed By: #### B GLU #### [address] [place] [address] Glucose [Mass/Vol] 213 mg/dL High [address] [facility] Comment on above: Result Comment: Test performed by glucose meter. Results may be 10%-15% lower than serum/plasma values. (CLIA ID [id number]) Performed By: #### B GLU #### [facility] [address] [place] [address] Glucose [Mass/Vol] 190 mg/dL High 70-100 [facility] Comment on above: Result Comment: Test performed by glucose meter. Results may be 10%-15% lower than serum/plasma values. (CLIA ID [id number]) Performed By: #### M DIFF, HEMDF #### [facility] [address] [place] [address] Glucose [Mass/Vol] 238 mg/dL High 70-100 [facility] Comment on above: Result Comment: Test performed by glucose meter. Results may be 10%-15% lower than serum/plasma values. (CLIA ID [id number]) Performed By: #### B GLU #### [employer] [address] [place] [address] Glucose [Mass/Vol] 179 mg/dL High 70-100 [facility] [employer] [facility] Comment on above: Result Comment: Test performed by glucose meter. Results may be 10%-15% lower than serum/plasma values. (CLIA ID [id number]) Performed By: #### B GLU #### [employer] [address] [place] [address] POCT Glucoseon 12-26-2020 Glucose [Mass/Vol] 186 mg/dL High 70 - 100 mg/dL [facility] Work Phone: Comment on above: Test performed by gl ucose meter. Results may be 10%-15% lower than serum/plasma values. (CLIA ID [id number]) Interpretation and review of laboratory results Abnormal [facility] Work Phone: Test Performed by [employer], [address] [place] [address] [facility] Work Phone: Glucose [Mass/Vol] 213 mg/dL High 70 - 100 mg/dL [employer] Work Phone: Comment on above: Test performed by gl ucose meter. Results may be 10%-15% lower than serum/plasma values. (CLIA ID [id number]) Interpretation and review of laboratory results Abnormal [facility] Work Phone: Test Performed by [employer], [address] [place] [address] [facility] Work Phone: Glucose [Mass/Vol] 190 mg/dL High 70 - 100 mg/dL [facility] Work Phone: Comment on above: Test performed by gl ucose meter. Results may be 10%-15% lower than serum/plasma values. (CLIA ID [id number]) Interpretation and review of laboratory results Abnormal [facility] Work Phone: Test Performed by [employer], [facility] [employer], [place] [id number] [place], [place] [address]A Work Phone: Glucose [Mass/Vol] 238 mg/dL High 70 - 100 mg/dL [facility] Work Phone: [phone] Comment on above: Test performed by gl ucose meter. Results may be 10%-15% lower than serum/plasma values. (CLIA ID [id number]) Interpretation and review of laboratory results Abnormal [facility] Work Phone: Test Performed by [employer], [facility] [place] [address] [facility] Work Phone: Glucose,Bedsideon 12-25-2020 Glucose [Mass/Vol] 250 mg/dL High 70-100 [facility] Comment on above: Result Comment: Test performed by glucose meter. Results may be 10%-15% lower than serum/plasma values. (CLIA ID [id number]) Performed By: #### B GLU #### [facility] [employer] [place] [place] [address] Glucose [Mass/Vol] 252 mg/dL High 70-100 [facility] Comment on above: Result Comment: Test performed by glucose meter. Results may be 10%-15% lower than serum/plasma values. (CLIA ID [id number]) Performed By: #### B GLU #### [facility] [place] [address] [place] [address] Glucose [Mass/Vol] 218 mg/dL High 70-100 [facility] Comment on above: Result Comment: Test performed by glucose meter. Results may be 10%-15% lower than serum/plasma values. (CLIA ID [id number]) Performed By: #### B GLU #### [employer] [place] [address] [place] [address] POCT Glucoseon 12-25-2020 Glucose [Mass/Vol] 179 mg/dL High 70 - 100 mg/dL [facility] Work Phone: Comment on above: Test performed by gl ucose meter. Results may be 10%-15% lower than serum/plasma values. (CLIA ID [id number]) Interpretation and review of laboratory results Abnormal [facility] Work Phone: [phone] Test Performed by [employer], [place] [address] [facility] Work Phone: 1 Glucose [Mass/Vol] 250 mg/dL High 70 - 100 mg/dL [facility] Work Phone: 1 Comment on above: Test performed by gl ucose meter. Results may be 10%-15% lower than serum/plasma values. (CLIA ID [id number]) Interpretation and review of laboratory results Abnormal [facility] Work Phone: 1 Test Performed by [employer], [place] [address] [facility] Work Phone: 1 Glucose [Mass/Vol] 252 mg/dL High 70 - 100 mg/dL [facility] Work Phone: 1 Comment on above: Test performed by gl ucose meter. Results may be 10%-15% lower than serum/plasma values. (CLIA ID [id number]) Interpretation and review of laboratory results Abnormal [facility] Work Phone: 1 Test Performed by [employer], [place] [address] [facility] Work Phone: 1 Glucose [Mass/Vol] 218 mg/dL High 70 - 100 mg/dL [facility] Work Phone: 1 Comment on above: Test performed by gl ucose meter. Results may be 10%-15% lower than serum/plasma values. (CLIA ID [id number]) Interpretation and review of laboratory results Abnormal [facility] Work Phone: 1 Test Performed by [employer], [place] [address] [facility] Work Phone: 1 CBC Auto Differentialon - Absolute Baso # 0.1 10*3/uL 0.0 - 0.2 10*3/uL [facility] Work Phone: 1 Absolute Neut # 8.6 10*3/uL High 1.8 - 7.0 10*3/uL [facility] Work Phone: Basophils/100 WBC (Bld) 0.4 % 0.0 - 2.0 % [facility] Work Phone: 1 Eosinophils (Bld) [#/Vol] 0.2 10*3/uL 0.0 - 0.5 10*3/uL [facility] Work Phone: Eosinophils/100 WBC (Bld) 1.5 % 1.0 - 6.0 % [facility] Work Phone: 1 Erythrocyte distribution width (RBC) [Ratio] 13.6 % 11.5 - 14.5 % [facility] Work Phone: 1 Granulocytes/100 WBC (Bld) 59.5 % 40.0 - 80.0 % [facility] Work Phone: Hematocrit (Bld) [Volume fraction] 37.2 % 35.0 - 47.0 % [facility] Work Phone: Hemoglobin (Bld) [Mass/Vol] 12.5 g/dL 11.7 - 16.0 g/dL [facility] Work Phone: Interpretation and review of laboratory results Abnormal [facility] Work Phone: Lymphocytes (Bld) [#/Vol] 4.5 10*3/uL High 1.0 - 4.3 10*3/uL [facility] Work Phone: Lymphocytes/100 WBC (Bld) 30.8 % 20.0 - 40.0 % [facility] Work Phone: MCH (RBC) [Entitic mass] 30.4 pg 26.0 - 34.0 pg [facility] Work Phone: MCHC (RBC) [Mass/Vol] 33.6 % 32.0 - 36.0 % [facility] Work Phone: MCV (RBC) [Entitic vol] 90.3 fL 79.0 - 98.0 fL [facility] Work Phone: Monocytes (Bld) [#/Vol] 1.1 10*3/uL High 0.0 - 0.8 10*3/uL [facility] Work Phone: [phone] Monocytes/100 WBC (Bld) 7.8 % 2.0 - 10.0 % [facility] Work Phone: Platelet mean volume (Bld) [Entitic vol] 7.7 fL 7.4 - 10.4 fL [facility] Work Phone: [phone] Platelets (Bld) [#/Vol] 278 10*3/uL 140 - 440 10*3/uL [facility] Work Phone: [phone] RBC (Bld) [#/Vol] 4.12 10*6/uL 3.80 - 5.2 0 10*6/uL [facility] Work Phone: [phone] WBC (Bld) [#/Vol] 14.5 10*3/uL High 3.6 - 10.7 10*3/uL [facility] Work Phone: [phone] Test Performed by [employer], [address] [place] [address] [facility] Work Phone: [phone] Glucose, Bedsideon 1 Confirmation see below Normal [employer] Comment on above: Result Comment: No c onfirmation received. Performed By: #### G LUB #### [employer] [address] [place] [address] Glucose,Bedside > 450 High 70-100 [facility] Comment on above: Result Comment: Test performed by glucose meter. Results may be 10%-15% lower than serum/plasma values. (CLIA ID [id number]) Performed By: #### G LUB #### [employer] [address] [place] [address] Glucose,Bedsideon 12-24-2020 Glucose [Mass/Vol] 242 mg/dL High 70-100 [facility] Comment on above: Result Comment: Test performed by glucose meter. Results may be 10%-15% lower than serum/plasma values. (CLIA ID [id number]) Performed By: #### M DIFF, HEMDF #### [employer] [address] [place] [address] Glucose [Mass/Vol] 314 mg/dL High 70-100 [facility] Comment on above: Result Comment: Test performed by glucose meter. Results may be 10%-15% lower than serum/plasma values. (CLIA ID [id number]) Performed By: #### M DIFF, HEMDF #### [facility] [address] [place] [address] Glucose [Mass/Vol] 192 mg/dL High 70-100 [facility] Comment on above: Result Comment: Test performed by glucose meter. Results may be 10%-15% lower than serum/plasma values. (CLIA ID [id number]) Performed By: #### M DIFF, HEMDF #### [facility] [address] [place] [address] Glucose [Mass/Vol] 189 mg/dL High 70-100 [facility] Comment on above: Result Comment: Test performed by glucose meter. Results may be 10%-15% lower than serum/plasma values. (CLIA ID [id number]) Performed By: #### B GLU #### [address] [place], [place] Glucose [Mass/Vol] 201 mg/dL High 70-100 [facility] Comment on above: Result Comment: Test performed by glucose meter. Results may be 10%-15% lower than serum/plasma values. (CLIA ID [id number]) Performed By: #### M DIFF, HEMDF #### [facility] [address] [place], [place] Glucose [Mass/Vol] 247 mg/dL High [address] Comment on above: Result Comment: Test performed by glucose meter. Results may be 10%-15% lower than serum/plasma values. (CLIA ID [id number]) Performed By: #### M DIFF, HEMDF #### [facility] [address] [place], [place] Hemogram w/ Autodiffon 12-24 Abs Baso Cnt 0.1 10*3/uL Normal 0.0-0.2 [facility] Comment on above: Performed By: #### B GLU #### [facility] [address] [place], [place] Abs Neutrophile Cnt 8.6 10*3/uL High 1.8-7.0 [facility] Comment on above: Performed By: #### B GLU #### [facility] [address] [place], [place] Basophils/100 WBC (Bld) 0.4 % Normal 0.0-2.0 [facility] Comment on above: Performed By: #### B GLU #### [facility] [address] [place], [place] Eosinophils (Bld) [#/Vol] 0.2 10*3/uL Normal 0.0-0.5 [facility] Comment on above: Performed By: #### B GLU #### [address] [place], [place] Eosinophils/100 WBC (Bld) 1.5 % Normal 1.0-6.0 [facility] Comment on above: Performed By: #### B GLU #### [address] [place], [place] Erythrocyte distribution width (RBC) [Ratio] 13.6 % Normal 11.5-14.5 [facility] Comment on above: Performed By: #### B GLU #### [address] [place], [place] Granulocytes/100 WBC (Bld) 59.5 % Normal 40.0-80.0 [facility] Comment on above: Performed By: #### B GLU #### [address] [place], [place] Hematocrit (Bld) [Volume fraction] 37.2 % Normal 35.0-47.0 [facility] Comment on above: Performed By: #### B GLU #### [address] [place], [place] Hemoglobin (Bld) [Mass/Vol] 12.5 g/dL Normal 11.7-16.0 [facility] Comment on above: Performed By: #### B GLU #### [address] [place], [place] Lymphocytes (Bld) [#/Vol] 4.5 10*3/uL High 1.0-4.3 [facility] Comment on above: Performed By: #### B GLU #### [facility] [address] [place], [place] Lymphocytes/100 WBC (Bld) 30.8 % Normal 20.0-40.0 [facility] Comment on above: Performed By: #### B GLU #### [facility] [address] [place], [place] MCH (RBC) [Entitic mass] 30.4 pg Normal 26.0-34.0 [facility] Comment on above: Performed By: #### B GLU #### [facility] [address] [place], [place] MCHC 33.6 % Normal 32.0-36.0 [facility] Comment on above: Performed By: #### B GLU #### [facility] [address] [place], [place] MCV (RBC) [Entitic vol] 90.3 fL Normal 79.0-98.0 [facility] Comment on above: Performed By: #### B GLU #### [facility] [address] [place], [place] Monocytes (Bld) [#/Vol] 1.1 10*3/uL High 0.0-0.8 [facility] Comment on above: Performed By: #### B GLU #### [facility] [address] [place], [place] Monocytes/100 WBC (Bld) 7.8 % Normal 2.0-10.0 [facility] Comment on above: Performed By: #### B GLU #### [facility] [address] [place], [place] Platelet mean volume (Bld) [Entitic vol] 7.7 fL Normal 7.4-10.4 [facility] Comment on above: Performed By: #### B GLU #### [facility] [address] [place], [place] Platelets (Bld) [#/Vol] 278 10*3/uL Normal 140-440 [facility] Comment on above: Performed By: #### B GLU #### [facility] [address] [place] [address] RBC (Bld) [#/Vol] 4.12 10*6/uL Normal 3.80-5.20 [facility] [employer] [facility] Comment on above: Performed By: #### B GLU #### [facility] [address] [place] [address] WBC (Bld) [#/Vol] 14.5 10*3/uL High 3.6-10.7 [facility] [employer] Comment on above: Performed By: #### B GLU #### [employer] [address] [place] [address] POC Glucose, Whole Bloodon 0 12-24-2020 Glucose [Mass/Vol] mg/dL High 70 - 100 mg/dL [facility] Work Phone: Comment on above: Test performed by gl ucose meter. Results may be 10%-15% lower than serum/plasma values. (CLIA ID [id number]) Interpretation and review of laboratory results Abnormal [facility] Work Phone: Sodium [Moles/Vol] see below [facility] Work Phone: Comment on above: No confirmation rece ived. Test Performed by [employer], [address] [place] [address] [facility] Work Phone: POCT Glucoseon 12-24-2020 Glucose [Mass/Vol] 242 mg/dL High 70 - 100 mg/dL [facility] Work Phone: Comment on above: Test performed by gl ucose meter. Results may be 10%-15% lower than serum/plasma values. (CLIA ID [id number]) Interpretation and review of laboratory results Abnormal [facility] Work Phone: Test Performed by [employer], [address] [place] [address] [facility] Work Phone: Glucose [Mass/Vol] 314 mg/dL High 70 - 100 mg/dL [facility] Work Phone: Comment on above: Test performed by gl ucose meter. Results may be 10%-15% lower than serum/plasma values. (CLIA ID [id number]) Interpretation and review of laboratory results Abnormal [facility] Work Phone: 1 22 Test Performed [place] [address] [facility] Work Phone: 1 Glucose [Mass/Vol] 192 mg/dL High 70 - 100 mg/dL [facility] Work Phone: 1 Comment on above: Test performed by gl ucose meter. Results may be 10%-15% lower than serum/plasma values. (CLIA ID [id number]) Interpretation and review of laboratory results Abnormal [facility] Work Phone: 1 Test Performed by [employer], [facility] [place] [address] [facility] Work Phone: 1 Glucose [Mass/Vol] 189 mg/dL High 70 - 100 mg/dL [facility] Work Phone: 1 Comment on above: Test performed by gl ucose meter. Results may be 10%-15% lower than serum/plasma values. (CLIA ID [id number]) Interpretation and review of laboratory results Abnormal [facility] Work Phone: 1 Test Performed by [employer], [facility] [place] [address] [facility] Work Phone: 1 Glucose [Mass/Vol] 201 mg/dL High 70 - 100 mg/dL [facility] Work Phone: 1 Comment on above: Test performed by gl ucose meter. Results may be 10%-15% lower than serum/plasma values. (CLIA ID [id number]) Interpretation and review of laboratory results Abnormal [facility] Work Phone: 1 22 Test Performed [place] [address] [facility] Work Phone: 1 Glucose [Mass/Vol] 247 mg/dL High 70 - 100 mg/dL [facility] Work Phone: 1 Comment on above: Test performed by gl ucose meter. Results may be 10%-15% lower than serum/plasma values. (CLIA ID [id number]) Interpretation and review of laboratory results Abnormal [facility] Work Phone: 1( Test Performed by [employer], [address] [place] [address] [facility] Work Phone: 1( TSH without Reflexon 021 TSH Qn 3.200 u[IU]/mL 0.465 - 4.680 u[IU]/mL [facility] Work Phone: 1 Test Performed by [employer], [address] [place] [address] [facility] Work Phone: 1() Thyroid Stim. Hormoneon 11-27 Thyroid Stim. Hormone 3.200 u[IU]/mL Normal 0.465-4.68 0 [employer] Comment on above: Performed By: #### M DIFF, HEMDF #### [employer] [address] [place] [address] CBC Auto Differentialon 11-27 Absolute Baso # 0.1 10*3/uL 0.0 - 0.2 10*3/uL [facility] Work Phone: 1 Absolute Neut # 13.3 10*3/uL High 1.8 - 7.0 10*3/uL [facility] Work Phone: 1 Basophils/100 WBC (Bld) 0.8 % 0.0 - 2.0 % [facility] Work Phone: Eosinophils (Bld) [#/Vol] 0.0 10*3/uL 0.0 - 0.5 10*3/uL [facility] Work Phone: 1 Eosinophils/100 WBC (Bld) 0.0 % Low 1.0 - 6.0 % [facility] Work Phone: 1 Erythrocyte distribution width (RBC) [Ratio] 13.4 % 11.5 - 14.5 % [facility] Work Phone: Granulocytes/100 WBC (Bld) 85.4 % High 40.0 - 80.0 % [facility] Work Phone: Hematocrit (Bld) [Volume fraction] 37.0 % 35.0 - 47.0 % [facility] Work Phone: 1 Hemoglobin (Bld) [Mass/Vol] 12.6 g/dL 11.7 - 16.0 g/dL [employer] Phone: 1 Interpretation and review of laboratory results Abnormal [employer] Phone: 1 Lymphocytes (Bld) [#/Vol] 1.4 10*3/uL 1.0 - 4.3 10*3/uL [facility] Work Phone: 1 Lymphocytes/100 WBC (Bld) 8.9 % Low 20.0 - 40.0 % [facility] Work Phone: 1 MCH (RBC) [Entitic mass] 30.8 pg 26.0 - 34.0 pg [employer] Phone: MCHC (RBC) [Mass/Vol] 34.1 % 32.0 - 36.0 % [employer] Phone: 1 MCV (RBC) [Entitic vol] 90.3 fL 79.0 - 98.0 fL [facility] Work Phone: 1 Monocytes (Bld) [#/Vol] 0.8 10*3/uL 0.0 - 0.8 10*3/uL [employer] Phone: 1 Monocytes/100 WBC (Bld) 4.9 % 2.0 - 10.0 % [employer] Phone: 1 Platelet mean volume (Bld) [Entitic vol] 7.9 fL 7.4 - 10.4 fL [facility] Work Phone: 1 Platelets (Bld) [#/Vol] 287 10*3/uL 140 - 440 10*3/uL [facility] Work Phone: RBC (Bld) [#/Vol] 4.10 10*6/uL 3.80 - 5.2 0 10*6/uL [facility] Work Phone: WBC (Bld) [#/Vol] 15.6 10*3/uL High 3.6 - 10.7 10*3/uL [facility] Work Phone: 1 Test Performed by [employer], [address] [place] [address] [facility] Work Phone: Glucose,Bedsideon 12-23-2020 Glucose [Mass/Vol] 192 mg/dL High 70-100 [facility] Comment on above: Result Comment: Test performed by glucose meter. Results may be 10%-15% lower than serum/plasma values. (CLIA ID [id number]) Performed By: #### B GLU #### [employer] [address] [place] [address] Glucose [Mass/Vol] 244 mg/dL High 70-100 [facility] Comment on above: Result Comment: Test performed by glucose meter. Results may be 10%-15% lower than serum/plasma values. (CLIA ID [id number]) Performed By: #### B GLU #### [employer] [address] [place] [address] Glucose [Mass/Vol] 187 mg/dL High 70-100 [facility] Comment on above: Result Comment: Test performed by glucose meter. Results may be 10%-15% lower than serum/plasma values. (CLIA ID [id number]) Performed By: #### M DIFF, HEMDF #### [employer] [address] [place] [address] Glucose [Mass/Vol] 264 mg/dL High 70-100 [facility] Comment on above: Result Comment: Test performed by glucose meter. Results may be 10%-15% lower than serum/plasma values. (CLIA ID [id number]) Performed By: #### B GLU #### [employer] [address] [place] [address] Glucose [Mass/Vol] 246 mg/dL High 70-100 [facility] Comment on above: Result Comment: Test performed by glucose meter. Results may be 10%-15% lower than serum/plasma values. (CLIA ID [id number]) Performed By: #### M DIFF, HEMDF #### [employer] [address] [place] [address] Glucose [Mass/Vol] 325 mg/dL High 70-100 [facility] Comment on above: Result Comment: Test performed by glucose meter. Results may be 10%-15% lower than serum/plasma values. (CLIA ID [id number]) Performed By: #### B GLU #### [facility] [address] [place] [address] Hemogram w/ Autodiffon 12-23 Abs Baso Cnt 0.1 10*3/uL Normal 0.0-0.2 [facility] Comment on above: Performed By: #### M DIFF, HEMDF #### [facility] [address] [place] [address] Abs Neutrophile Cnt 13.3 10*3/uL High 1.8-7.0 [facility] Comment on above: Performed By: #### M DIFF, HEMDF #### [facility] [address] [place] [address] Basophils/100 WBC (Bld) 0.8 % Normal 0.0-2.0 [facility] Comment on above: Performed By: #### M DIFF, HEMDF #### [facility] [address] [place] [address] Eosinophils (Bld) [#/Vol] 0.0 10*3/uL Normal 0.0-0.5 [facility] Comment on above: Performed By: #### M DIFF, HEMDF #### [facility] [address] [place] [address] Eosinophils/100 WBC (Bld) 0.0 % Low 1.0-6.0 [facility] Comment on above: Performed By: #### M DIFF, HEMDF #### [facility] [address] [place] [address] Erythrocyte distribution width (RBC) [Ratio] 13.4 % Normal 11.5-14.5 [facility] Comment on above: Performed By: #### M DIFF, HEMDF #### [facility] [address] [place] [address] Granulocytes/100 WBC (Bld) 85.4 % High 40.0-80.0 [facility] Comment on above: Performed By: #### M DIFF, HEMDF #### [facility] [address] [place] Hematocrit (Bld) [Volume fraction] 37.0 % Normal 35.0-47.0 [facility] Comment on above: Performed By: #### M DIFF, HEMDF #### [facility] [address] [place], [place] Hemoglobin (Bld) [Mass/Vol] 12.6 g/dL Normal 11.7-16.0 [facility] Comment on above: Performed By: #### M DIFF, HEMDF #### [facility] [address] [place], [place] Lymphocytes (Bld) [#/Vol] 1.4 10*3/uL Normal 1.0-4.3 [facility] Comment on above: Performed By: #### M DIFF, HEMDF #### [facility] [address] [place], [place] Lymphocytes/100 WBC (Bld) 8.9 % Low 20.0-40.0 [facility] Comment on above: Performed By: #### M DIFF, HEMDF #### [facility] [address] [place], [place] MCH (RBC) [Entitic mass] 30.8 pg Normal 26.0-34.0 [facility] Comment on above: Performed By: #### M DIFF, HEMDF #### [facility] [place] [address] [place] MCHC 34.1 % Normal 32.0-36.0 [facility] Comment on above: Performed By: #### M DIFF, HEMDF #### [facility] [place] [address] [place], [place] MCV (RBC) [Entitic vol] 90.3 fL Normal 79.0-98.0 [facility] Comment on above: Performed By: #### M DIFF, HEMDF #### [facility] [place] [address] [place], [place] Monocytes (Bld) [#/Vol] 0.8 10*3/uL Normal 0.0-0.8 [facility] Comment on above: Performed By: #### M DIFF, HEMDF #### [place] [address] [place], [place] Monocytes/100 WBC (Bld) 4.9 % Normal 2.0-10.0 [facility] Comment on above: Performed By: #### M DIFF, HEMDF #### [place] [address] [place], [place] Platelet mean volume (Bld) [Entitic vol] 7.9 fL Normal 7.4-10.4 [facility] Comment on above: Performed By: #### M DIFF, HEMDF #### [place] [address] [place], [place] Platelets (Bld) [#/Vol] 287 10*3/uL Normal 140-440 [facility] Comment on above: Performed By: #### M DIFF, HEMDF #### [place] [address] [place], [place] RBC (Bld) [#/Vol] 4.10 10*6/uL Normal 3.80-5.20 [facility] Comment on above: Performed By: #### M DIFF, HEMDF #### [place] [address] [place], [place] WBC (Bld) [#/Vol] 15.6 10*3/uL High 3.6-10.7 [facility] Comment on above: Performed By: #### M DIFF, HEMDF #### [place] [address] [place], [place] POCT Glucoseon 12-23-2020 Glucose [Mass/Vol] 192 mg/dL High 70 - 100 mg/dL [facility] Work Phone: Comment on above: Test performed by gl ucose meter. Results may be 10%-15% lower than serum/plasma values. (CLIA ID [id number]) Interpretation and review of laboratory results Abnormal [facility] Work Phone: [facility], [address] [place] [address] [facility] Work Phone: Glucose [Mass/Vol] 244 mg/dL High 70 - 100 mg/dL [facility] Work Phone: 1 Comment on above: Test performed by gl ucose meter. Results may be 10%-15% lower than serum/plasma values. (CLIA ID [id number]) Interpretation and review of laboratory results Abnormal [facility] Work Phone: 1 Test Performed by [employer], [place] [address] [facility] Work Phone: 1 Glucose [Mass/Vol] 187 mg/dL High 70 - 100 mg/dL [facility] Work Phone: 1 Comment on above: Test performed by gl ucose meter. Results may be 10%-15% lower than serum/plasma values. (CLIA ID [id number]) Interpretation and review of laboratory results Abnormal [facility] Work Phone: 1 Test Performed by [employer], [place] [address] [facility] Work Phone: 1 Glucose [Mass/Vol] 264 mg/dL High 70 - 100 mg/dL [facility] Work Phone: 1 Comment on above: Test performed by gl ucose meter. Results may be 10%-15% lower than serum/plasma values. (CLIA ID [id number]) Interpretation and review of laboratory results Abnormal [facility] Work Phone: 1 Test Performed by [employer], [place] [address] [facility] Work Phone: 1 Glucose [Mass/Vol] 246 mg/dL High 70 - 100 mg/dL [facility] Work Phone: 1) Comment on above: Test performed by gl ucose meter. Results may be 10%-15% lower than serum/plasma values. (CLIA ID [id number]) Interpretation and review of laboratory results Abnormal [facility] Work Phone: 1 22 Test Performed by [employer], [place] [address] [facility] Work Phone: 1 Glucose [Mass/Vol] 325 mg/dL High 70 - 100 mg/dL [facility] Work Phone: 1 Comment on above: Test performed by [employer] ucose meter. Results may be 10%-15% lower than serum/plasma values. (CLIA ID [id number]) Interpretation and review of laboratory results Abnormal [facility] Work Phone: 1 Test Performed by [employer], [address] [place] [address] [facility] Work Phone: CBC Auto Differentialon 11-27 Erythrocyte distribution width (RBC) [Ratio] 13.7 % 11.5 - 14.5 % [facility] Work Phone: Hematocrit (Bld) [Volume fraction] 39.2 % 35.0 - 47.0 % [facility] Work Phone: Hemoglobin (Bld) [Mass/Vol] 13.1 g/dL 11.7 - 16.0 g/dL [facility] Work Phone: Interpretation and review of laboratory results Abnormal [facility] Work Phone: MCH (RBC) [Entitic mass] 30.2 pg 26.0 - 34.0 pg [facility] Work Phone: MCHC (RBC) [Mass/Vol] 33.3 % 32.0 - 36.0 % [facility] Work Phone: MCV (RBC) [Entitic vol] 90.7 fL 79.0 - 98.0 fL [facility] Work Phone: Platelet mean volume (Bld) [Entitic vol] 7.8 fL 7.4 - 10.4 fL [facility] Work Phone: Platelets (Bld) [#/Vol] 315 10*3/uL 140 - 440 10*3/uL [facility] Work Phone: RBC (Bld) [#/Vol] 4.32 10*6/uL 3.80 - 5.2 0 10*6/uL [facility] Work Phone: WBC (Bld) [#/Vol] 19.6 10*3/uL High 3.6 - 10.7 10*3/uL [facility] Work Phone: Test Performed by [employer], [address] [place] [address] [facility] Work Phone: Glucose,Bedsideon 12-22-2020 Glucose [Mass/Vol] 239 mg/dL High 70-100 [facility] Comment on above: Result Comment: Test performed by glucose meter. Results may be 10%-15% lower than serum/plasma values. (CLIA ID [id number]) Performed By: #### B GLU #### [employer] [facility] [address] [place] [address] Glucose [Mass/Vol] 276 mg/dL High 70-100 [facility] Comment on above: Result Comment: Test performed by glucose meter. Results may be 10%-15% lower than serum/plasma values. (CLIA ID [id number]) Performed By: #### B GLU #### [employer] [address] [place] [address] Glucose [Mass/Vol] 361 mg/dL High 70-100 [facility] Comment on above: Result Comment: Test performed by glucose meter. Results may be 10%-15% lower than serum/plasma values. (CLIA ID [id number]) Performed By: #### B GLU #### [employer] [address] [place] [address] Glucose [Mass/Vol] 323 mg/dL High [address] [facility] Comment on above: Result Comment: Test performed by glucose meter. Results may be 10%-15% lower than serum/plasma values. (CLIA ID [id number]) Performed By: #### B GLU #### [employer] [address] [place] [address] Glucose [Mass/Vol] 351 mg/dL High 70-100 [facility] Comment on above: Result Comment: Test performed by glucose meter. Results may be 10%-15% lower than serum/plasma values. (CLIA ID [id number]) Performed By: #### B GLU #### [employer] [address] [place] [address] Glucose [Mass/Vol] 293 mg/dL High 70-100 [facility] [employer] [facility] Comment on above: Result Comment: Test performed by glucose meter. Results may be 10%-15% lower than serum/plasma values. (CLIA ID [id number]) Performed By: #### B GLU #### [employer] [address] [place] [address] Hemoglobin A1Con 12-22-2020 Glucose [Mass/Vol] 203 mg/dL Normal [facility] Comment on above: Performed By: #### B GLU #### [employer] [address] [place] [address] HbA1c (Bld) [Mass fraction] 8.7 % Abnormal [facility] Comment on above: Result Comment: Norm al less than 5.7% Prediabetes 5.7% to 6.4% Diabetes 6.5% or higher --HgbA1C levels may not be accurate in patients who have renal disease, received recent blood transfusions, are anemic, or who have dyshemoglobinemia. Performed By: #### B GLU #### [employer] [address] [place] [address] Hemoglobin A1con 12-22-2020 eAG 203 mg/dL [facility] Work Phone: HbA1c (Bld) [Mass fraction] 8.7 % Abnormal [facility] Work Phone: Comment on above: Normal less than 5.7 % Prediabetes 5.7% to 6.4% Diabetes 6.5% or higher --HgbA1C levels may not be accurate in patients who have renal disease, received recent blood transfusions, are anemic, or who have dyshemoglobinemia. Interpretation and review of laboratory results Abnormal [facility] Work Phone: Test Performed by [employer], [address] [place] [address] [facility] Work Phone: [phone] Hemogram w/ Autodiffon 12-22 Erythrocyte distribution width (RBC) [Ratio] 13.7 % Normal 11.5-14.5 [facility] [employer] Comment on above: Performed By: #### M DIFF, HEMDF #### [employer] [address] [place] [address] Hematocrit (Bld) [Volume fraction] 39.2 % Normal 35.0-47.0 [facility] Comment on above: Performed By: #### M DIFF, HEMDF #### [facility] [address] [place], [place] Hemoglobin (Bld) [Mass/Vol] 13.1 g/dL Normal 11.7-16.0 [facility] Comment on above: Performed By: #### M DIFF, HEMDF #### [place] [address] [place], [place] MCH (RBC) [Entitic mass] 30.2 pg Normal 26.0-34.0 [facility] Comment on above: Performed By: #### M DIFF, HEMDF #### [place] [address] [place] MCHC 33.3 % Normal 32.0-36.0 [facility] Comment on above: Performed By: #### M DIFF, HEMDF #### [place] [address] [place] MCV (RBC) [Entitic vol] 90.7 fL Normal 79.0-98.0 [facility] Comment on above: Performed By: #### M DIFF, HEMDF #### [place] [address] [place] Platelet mean volume (Bld) [Entitic vol] 7.8 fL Normal 7.4-10.4 [facility] Comment on above: Performed By: #### M DIFF, HEMDF #### [place] [address] [place] Platelets (Bld) [#/Vol] 315 10*3/uL Normal 140-440 [facility] Comment on above: Performed By: #### M DIFF, HEMDF #### [place] [address] [place], [place] RBC (Bld) [#/Vol] 4.32 10*6/uL Normal 3.80-5.20 [facility] Comment on above: Performed By: #### M DIFF, HEMDF #### [place] [address] [place] WBC (Bld) [#/Vol] 19.6 10*3/uL High 3.6-10.7 [facility] Comment on above: Performed By: #### M DIFF, HEMDF #### [place] [address] [place], [place] Manual Diffon 12-22-2020 Abs Lymph Cnt 2.7 10*3/uL Normal 1.1-4.5 [facility] Comment on above: Performed By: #### M DIFF, HEMDF #### [place] [address] [place], [place] Abs Monocyte Cnt 1.6 10*3/uL High 0.2-1.1 [facility] Comment on above: Performed By: #### M DIFF, HEMDF #### [place] [address] [place], [place] Abs Neutrophile Cnt 15.3 10*3/uL High 2.2-8.2 [facility] Comment on above: Performed By: #### M DIFF, HEMDF #### [place] [address] [place] Lymphocytes 14 % Low 20-40 [facility] Comment on above: Performed By: #### M DIFF, HEMDF #### [place] [address] [place] Monocytes 8 % Normal 2-10 [facility] Comment on above: Performed By: #### M DIFF, HEMDF #### [place] [address] [place], [place] RBC Morphology Normal Normal [facility] Comment on above: Performed By: #### M DIFF, HEMDF #### [place] [address] [place], [place] Seg Neutrophils 78 % Normal 40-80 [facility] Comment on above: Performed By: #### M DIFF, HEMDF #### [place] [address] [place], [place] Abs Baso Cnt 0.0 10*3/uL Normal 0.0-0.2 [facility] Comment on above: Performed By: #### M DIFF, HEMDF #### [facility] [address] [place], [place] Abs Eosin Cnt 0.0 10*3/uL Normal 0.0-0.5 [facility] Comment on above: Performed By: #### M DIFF, HEMDF #### [facility] [address] [place], [place] Bands 0 % Normal 0-3 [facility] Comment on above: Performed By: #### M DIFF, HEMDF #### [facility] [address] [place], [place] Basophils 0 % Normal 0-2 [facility] Comment on above: Performed By: #### M DIFF, HEMDF #### [facility] [address] [place], [place] Cells counted 100 Normal [facility] Comment on above: Performed By: #### M DIFF, HEMDF #### [facility] [address] [place], [place] Eosinophils 0 % Low 1-6 [facility] Comment on above: Performed By: #### M DIFF, HEMDF #### [facility] [address] [place], [place] Manual Differentialon 2020 Absolute Baso # 0.0 10*3/uL 0.0 - 0.2 10*3/uL [facility] Work Phone: [phone] Absolute Eos # 0.0 10*3/uL 0.0 - 0.5 10*3/uL [facility] Work Phone: [phone] Absolute Lymph # 2.7 10*3/uL 1.1 - 4.5 10*3/uL [facility] Work Phone: [phone] Absolute [place] # 1.6 10*3/uL High 0.2 - 1.1 10*3/uL [facility] Work Phone: [phone] Absolute Neut # 15.3 10*3/uL High 2.2 - 8.2 10*3/uL [facility] Work Phone: [phone] Bands 0 % 0 - 3 % [facility] Work Phone: [phone] Basophils 0 % 0 - 2 % [facility] Work Phone: [phone] Eosinophils 0 % Low 1 - 6 % [facility] Work Phone: [phone] Interpretation and review of laboratory results Abnormal [facility] Work Phone: [phone] Lymphocytes 14 % Low 20 - 40 % [facility] Work Phone: [phone] Monocytes 8 % 2 - 10 % [facility] Work Phone: [phone] RBC morphology finding Nom (Bld) Normal [facility] Work Phone: [phone] Seg Neutrophils 78 % 40 - 80 % [facility] Work Phone: [phone] TOTAL CELLS COUNTED 100 [facility] Work Phone: [phone] Test Performed by [employer], [facility] [place] [address] [facility] Work Phone: [phone] POCT Glucoseon 12-22-2020 Glucose [Mass/Vol] 239 mg/dL High 70 - 100 mg/dL [facility] Work Phone: [phone] Comment on above: Test performed by gl ucose meter. Results may be 10%-15% lower than serum/plasma values. (CLIA ID [id number]) Interpretation and review of laboratory results Abnormal [facility] Work Phone: [phone] Performed by [employer], [facility] [place] [address] [facility] Work Phone: [phone] Glucose [Mass/Vol] 276 mg/dL High 70 - 100 mg/dL [facility] Work Phone: [phone] Comment on above: Test performed by gl ucose meter. Results may be 10%-15% lower than serum/plasma values. (CLIA ID [id number]) Interpretation and review of laboratory results Abnormal [facility] Work Phone: [phone] Test Performed by [employer], [place] [address] [facility] Work Phone: [phone] Glucose [Mass/Vol] 361 mg/dL High 70 - 100 mg/dL [facility] Work Phone: [phone] Comment on above: Test performed by gl ucose meter. Results may be 10%-15% lower than serum/plasma values. (CLIA ID [id number]) Interpretation and review of laboratory results Abnormal [facility] Work Phone: [phone] Test Performed by [employer], [facility] [place] [address] [facility] Work Phone: [phone] Glucose [Mass/Vol] 323 mg/dL High 70 - 100 mg/dL [facility] Work Phone: [phone] Comment on above: Test performed by gl ucose meter. Results may be 10%-15% lower than serum/plasma values. (CLIA ID [id number]) Interpretation and review of laboratory results Abnormal [facility] Work Phone: 1 Test Performed by [employer], [facility] [place] [address] [facility] Work Phone: [phone] Glucose [Mass/Vol] 351 mg/dL High 70 - 100 mg/dL [facility] Work Phone: [phone] Comment on above: Test performed by gl ucose meter. Results may be 10%-15% lower than serum/plasma values. (CLIA ID [id number]) Interpretation and review of laboratory results Abnormal [facility] Work Phone: 1 Test Performed by [employer], [facility] [place] [address] [facility] Work Phone: [phone] Glucose [Mass/Vol] 293 mg/dL High 70 - 100 mg/dL [facility] Work Phone: [phone] Comment on above: Test performed by gl ucose meter. Results may be 10%-15% lower than serum/plasma values. (CLIA ID [id number]) Interpretation and review of laboratory results Abnormal [facility] Work Phone: [phone] Test Performed by [employer], [facility] [place] [address] [facility] Work Phone: [phone] APTTon 12-21-2020 aPTT Coag (Bld) [Time] 25.8 s Normal 20.0-30.5 [facility] Comment on above: Result Comment: NOTE : The therapeutic time for Heparin anticoagulation, based on Xa activity inhibition, is an APTT of 46-80 seconds. Performed By: #### B GLU #### [facility] [address] [place], [place] aPTT Coag (Bld) [Time] 25.8 s 20.0 - 30.5 s [facility] Work Phone: Comment on above: NOTE: The therapeuti c time for Heparin anticoagulation, based on Xa activity inhibition, is an APTT of 46-80 seconds. Basic Metabolic Panelon 03-2 Calcium [Mass/Vol] 9.7 mg/dL Normal 8.4-10.4 [facility] Comment on above: Performed By: #### B GLU #### [place] [address] [place], [place] Glucose [Mass/Vol] 311 mg/dL High 70-100 [facility] Comment on above: Performed By: #### B GLU #### [place] [place], [place] Anion gap [Moles/Vol] 7 mmol/L Normal 3-13 [facility] Comment on above: Performed By: #### B GLU #### [place] [address] [place], [place] CO2 [Moles/Vol] 26 mmol/L Normal 22-30 [facility] Comment on above: Performed By: #### B GLU #### [place] [place], [place] Creatinine [Mass/Vol] 0.42 mg/dL Low 0.52-1.25 [facility] Comment on above: Performed By: #### B GLU #### [place] [place], [place] eGFR OTHER > 90.0 Normal >60 [facility] Comment on above: Result Comment: KDIG O [...] secretion. Performed By: #### B GLU #### [place] [place], [place] GFR/1.73 sq M.predicted among blacks MDRD (S/P/Bld) [Vol rate/Area] mL/min/{1.73_m2} Normal >60 [facility] Comment on above: Performed By: #### B GLU #### [place] [place], [place] Urea nitrogen [Mass/Vol] 15 mg/dL Normal 7-20 [facility] Comment on above: Performed By: #### B GLU #### [place] [address] [place], [place] Chloride [Moles/Vol] 99 mmol/L Normal 98-107 [facility] Comment on above: Performed By: #### B GLU #### [address] Potassium [Moles/Vol] 3.9 mmol/L Normal 3.5-5.1 [facility] Comment on above: Performed By: #### B GLU #### [place] [place], [place] Sodium [Moles/Vol] 132 mmol/L Low 135-145 [facility] Comment on above: Performed By: #### B GLU #### [address] Anion gap [Moles/Vol] 7 mmol/L 3 - 13 mmol/L [facility] Work Phone: Calcium [Mass/Vol] 9.7 mg/dL 8.4 - 10. 4 mg/dL [facility] Work Phone: Chloride [Moles/Vol] 99 mmol/L 98 - 10 7 mmol/L [facility] Work Phone: [phone] CO2 [Moles/Vol] 26 mmol/L 22 - 30 mmol/L [facility] Work Phone: [phone] Creatinine [Mass/Vol] 0.42 mg/dL Low 0.52 - 1.25 mg/dL [facility] Work Phone: [phone] EGFR IF NonAfrican Nepalese >90.0 >60 mL/min [facility] Work Phone: Comment on above: KDIGO guidelines [...] MDRD (S/P/Bld) [Vol rate/Area] mL/min/{1.73_m2} >60 mL/min [facility] Work Phone: [phone] Glucose [Mass/Vol] 311 mg/dL High 70 - 100 mg/dL [facility] Work Phone: [phone] Interpretation and review of laboratory results Abnormal [facility] Work Phone: [phone] Potassium [Moles/Vol] 3.9 mmol/L 3.5 - 5.1 mmol/L [facility] Work Phone: [phone] Sodium [Moles/Vol] 132 mmol/L Low 135 - 145 mmol/L [facility] Work Phone: [phone] Urea nitrogen [Mass/Vol] 15 mg/dL 7 - 20 mg/dL [facility] Work Phone: Test Performed by [employer], [address] [place] [address] [facility] Work Phone: CBCon 12-21-2020 Erythrocyte distribution width (RBC) [Ratio] 13.3 % 11.5 - 14.5 % [facility] Work Phone: Hematocrit (Bld) [Volume fraction] 45.2 % 35.0 - 47.0 % [facility] Work Phone: Hemoglobin (Bld) [Mass/Vol] 15.1 g/dL 11.7 - 16.0 g/dL [facility] Work Phone: MCH (RBC) [Entitic mass] 30.3 pg 26.0 - 34.0 pg [facility] Work Phone: MCHC (RBC) [Mass/Vol] 33.5 % 32.0 - 36.0 % [facility] Work Phone: MCV (RBC) [Entitic vol] 90.7 fL 79.0 - 98.0 fL [facility] Work Phone: Platelet mean volume (Bld) [Entitic vol] 7.7 fL 7.4 - 10.4 fL [facility] Work Phone: Platelets (Bld) [#/Vol] 332 10*3/uL 140 - 440 10*3/uL [facility] Work Phone: RBC (Bld) [#/Vol] 4.99 10*6/uL 3.80 - 5.2 0 10*6/uL [facility] Work Phone: WBC (Bld) [#/Vol] 15.7 10*3/uL High 3.6 - 10.7 10*3/uL [facility] Work Phone: CR Chest 1 View Frontalon CR Chest 1 View Frontal Patient Name: LEIDY GARCIA Diagnostic Radiology ACCESSION EXAM DATE/TIME PROCEDURE ORDERING PROVIDER [id number] 12/21/2020 06:06 EDT CR Chest 1 View Frontal MD ROCK ZACHARY CPT code 20713 Reason For Exam (CR Chest 1 View [...] KRIKOR Transcribed Date and Time: 12/21/2020 8:00 [facility] CR Spine Lumbosacral 2 or 3 Viewson 12-21-2020 CR Spine Lumbosacral 2 or 3 Views Patient Name: LEIDY BLANCO Diagnostic Radiology ACCESSION EXAM DATE/TIME PROCEDURE ORDERING PROVIDER [id number] 12/21/2020 06:06 EDT CR Spine Lumbosacral 2 MD ROCK ZACHARY or 3 Views CPT code 07637 Reason For Exam (CR Spine Lumbosacral 2 or 3 Views) pre-surgery films Report Examination: Lumbar spine 3 views Indication: pre-surgery films Findings: The vertebral bodies are in gross anatomic alignment. No acute fracture is demonstrated. Obwa-iw-borkusly levocurvature is noted. There are at least moderate degenerative facet changes of the lower lumbar spine. There is at least moderate degenerative disc disease at T12/L1 and L1/L2. Eeax-af-ectlmnqa calcification of the abdominal aorta is noted. Multiple rounded surgical coils overlie the mid abdomen most suggestive of prior herniorrhaphy. Impression: No acute osseous abnormality. 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 : 1955 Requested By: SHILPI ROCK Order Number: [id number] Reading MD: Suresh Vides Measurements Intervals [place] Rate: 67 P: -40 VA: 248 QRS: 3 QRSD: 93 T: -15 QT: 428 QTc: 452 Interpretive Statements Sinus rhythm FIRST DEGREE AV BLOCK Probable left ventricular hypertrophy Nonspecific T abnormalities, anterior leads Poor R wave progression Electronically Signed On 12-21-2020 9:39:37 EDT by Suresh GODWIN Work Phone: Glucose,Bedsideon 12-21-2020 Glucose [Mass/Vol] 298 mg/dL High 70-100 [facility] [employer] [facility] Comment on above: Result Comment: Test performed by glucose meter. Results may be 10%-15% lower than serum/plasma values. (CLIA ID [id number]) Performed By: #### M DIFF, HEMDF #### [employer] [address] [place] [phone] Glucose [Mass/Vol] 223 mg/dL High 70-100 [facility] Comment on above: Result Comment: Test performed by glucose meter. Results may be 10%-15% lower than serum/plasma values. (CLIA ID [id number]) Performed By: #### B GLU #### [place] [place], [place] Glucose [Mass/Vol] 237 mg/dL High 70-100 [facility] Comment on above: Result Comment: Test performed by glucose meter. Results may be 10%-15% lower than serum/plasma values. (CLIA ID [id number]) Performed By: #### B GLU #### [place] [place] Glucose [Mass/Vol] 299 mg/dL High 70-100 [facility] [employer] Phone: Comment on above: Test performed by gl ucose meter. Results may be 10%-15% lower than serum/plasma values. (CLIA ID [id number]) Result Comment: Test performed by glucose meter. Results may be 10%-15% lower than serum/plasma values. (CLIA ID [id number]) Performed By: #### B GLU #### [place] [place], [place] Hemogramon 12-21-2020 Erythrocyte distribution width (RBC) [Ratio] 13.3 % Normal 11.5-14.5 [facility] Comment on above: Performed By: #### B GLU #### [place] [place], [place] Hematocrit (Bld) [Volume fraction] 45.2 % Normal 35.0-47.0 [facility] Comment on above: Performed By: #### B GLU #### [address] [place] [address] [place], [place] Hemoglobin (Bld) [Mass/Vol] 15.1 g/dL Normal 11.7-16.0 [facility] Comment on above: Performed By: #### B GLU #### [place] [address] [place], [place] MCH (RBC) [Entitic mass] 30.3 pg Normal 26.0-34.0 [facility] Comment on above: Performed By: #### B GLU #### [address] MCHC 33.5 % Normal 32.0-36.0 [facility] Comment on above: Performed By: #### B GLU #### [place] [address] [place], [place] MCV (RBC) [Entitic vol] 90.7 fL Normal 79.0-98.0 S [facility] Comment on above: Performed By: #### B GLU #### [address] Platelet mean volume (Bld) [Entitic vol] 7.7 fL Normal 7.4-10.4 [facility] Comment on above: Performed By: #### B GLU #### [address] Platelets (Bld) [#/Vol] 332 10*3/uL Normal 140-440 [facility] Comment on above: Performed By: #### B GLU #### [address] RBC (Bld) [#/Vol] 4.99 10*6/uL Normal 3.80-5.20 [facility] Comment on above: Performed By: #### B GLU #### [address] WBC (Bld) [#/Vol] 15.7 10*3/uL High 3.6-10.7 [facility] Comment on above: Performed By: #### B GLU #### [address] Otheron 12-21-2020 Test Performed by [facility] [employer] [address] [address] [facility] Work Phone: Interpretation and review of laboratory results Abnormal [facility] Work Phone: Test Performed by [facility] [employer] [place] [address] [facility] Work Phone: POCT Glucoseon 12-21-2020 Glucose [Mass/Vol] 298 mg/dL High 70 - 100 mg/dL [facility] Work Phone: [phone] Comment on above: Test performed by gl ucose meter. Results may be 10%-15% lower than serum/plasma values. (CLIA ID [id number]) Interpretation and review of laboratory results Abnormal [facility] Work Phone: [phone] Test Performed by [employer], [facility] [place] [address] [facility] Work Phone: [phone] Glucose [Mass/Vol] 223 mg/dL High 70 - 100 mg/dL [facility] Work Phone: [phone] Comment on above: Test performed by gl ucose meter. Results may be 10%-15% lower than serum/plasma values. (CLIA ID [id number]) Interpretation and review of laboratory results Abnormal [facility] Work Phone: Test Performed by [employer], [facility] [employer] [address] [facility] Work Phone: [phone] Glucose [Mass/Vol] 237 mg/dL High 70 - 100 mg/dL [facility] Work Phone: [phone] Comment on above: Test performed by gl ucose meter. Results may be 10%-15% lower than serum/plasma values. (CLIA ID [id number]) Interpretation and review of laboratory results Abnormal [facility] Work Phone: [phone] Test Performed by [employer], [facility] [place] [address] [facility] Work Phone: Prothrombin Timeon INR 1.0 Normal 0.9-1.1 [employer] Comment on above: Result Comment: Dain mmended [...] Infarction Performed By: #### B GLU #### [facility] [address] [place] [phone] PT Coag (PPP) [Time] 10.6 s Normal 9.0-12.0 [facility] [employer] Comment on above: Result Comment: . Performed By: #### B GLU #### [employer] [address] [place] [phone] Protime-INRon 12-21-2020 INR Coag (PPP) [Relative time] 1.0 {INR} [facility] Work Phone: [phone] Comment on above: Recommended Anticoag ulant Therapy: [...] [Time] 10.6 s 9.0 - 12.[address] [facility] Work Phone: [phone] Comment on above: . TS GELon 12-21-2020 TS GEL ABO Group: A Rh, Gel: POS Antibody Screen Gel: NEG Normal [facility] [employer] Comment on above: Performed By: #### B GLU #### [employer] [address] [place] [phone] TYPE AND SCREENon 12-21-2020 Sodium [Moles/Vol] Positive [facility] Work Phone: [phone] Sodium [Moles/Vol] A [facility] Work Phone: [phone] Sodium [Moles/Vol] Negative [facility] Work Phone: [phone] Test Performed by [employer], [address] [place] [address] [facility] Work Phone: [phone] XR CHEST 1 VWon 12-21-2020 Patient Name: LEIDY BLANCO Diagnostic Radiology ACCESSION EXAM DATE/TIME PROCEDURE ORDERING PROVIDER [id number] 12/21/2020 06:06 EDT CR Chest 1 View Frontal MD ROCK ZACHARY CPT code 06204 Reason For Exam (CR Chest 1 View [...] and Time: 12/21/2020 8:00 [facility] Work Phone: Karthik, [facility] Incoming Radiology Results From [facility], [facility] - 12/21/2020 8:27 AM EDT Patient Name: LEIDY BLANCO Diagnostic Radiology ACCESSION EXAM DATE/TIME PROCEDURE ORDERING PROVIDER [id number] 12/21/2020 06:06 EDT CR Chest 1 View Frontal MD ROCK ZACHARY CPT code 26414 Reason For Exam (CR Chest 1 View [...] 12-21-2020 Karthik, [facility] Incoming Radiology Results From [facility] - 12/21/2020 8:34 AM EDT Patient Name: LEIDY BLANCO Diagnostic Radiology ACCESSION EXAM DATE/TIME PROCEDURE ORDERING PROVIDER [id number] 12/21/2020 06:06 EDT CR Spine Lumbosacral 2 MD ROCK ZACHARY or 3 Views CPT code 80606 Reason For Exam (CR Spine Lumbosacral 2 or 3 Views) pre-surgery films Report Examination: Lumbar spine 3 views Indication: pre-surgery films Findings: The vertebral bodies are in gross anatomic alignment. No acute fracture is demonstrated. Jesy-yy-mfmqdghy levocurvature is noted. There are at least moderate degenerative facet changes of the lower lumbar spine. There is at least moderate degenerative disc disease at T12/L1 and L1/L2. Bshr-gh-couklewz calcification of the abdominal aorta is noted. Multiple rounded surgical coils overlie the mid abdomen most suggestive of prior herniorrhaphy. Impression: No acute osseous abnormality. Report Dictated on --- Final --- Dictated: 12/21/2020 8:31 am Dictating Physician: MD FLEMING KRIKOR Signed Date and Time: 12/21/2020 8:33 am Signed by: MD FLEMING KRIKOR Transcribed Date and Time: 12/21/2020 8:31 [facility] Work Phone: Patient Name: LEIDY BLANCO Diagnostic Radiology ACCESSION EXAM DATE/TIME PROCEDURE ORDERING PROVIDER [id number] 12/21/2020 06:06 EDT CR Spine Lumbosacral 2 MD ROCK ZACHARY or 3 Views CPT code 91969 Reason For Exam (CR Spine Lumbosacral 2 or 3 Views) pre-surgery films Report Examination: Lumbar spine 3 views Indication: pre-surgery films Findings: The vertebral bodies are in gross anatomic alignment. No acute fracture is demonstrated. Mbla-rt-ryjzqwsv levocurvature is noted. There are at least moderate degenerative facet changes of the lower lumbar spine. There is at least moderate degenerative disc disease at T12/L1 and L1/L2. Uedf-tm-wffpwijt calcification of the abdominal aorta is noted. [...] Time Vital Sign Value Performing Clinician Facility 03-22-2025 13:46-0400 Body mass index (BMI) [Ratio] 36 kg/m2 Liliana Bennett APRN.ENGINEERING TEST SPECIALIST Work Phone: [facility] 03-22-2025 13:46-0400 Body weight 84.28 kg Liliana Bennett APRN.ENGINEERING TEST SPECIALIST Work Phone: [facility] 03-22-2025 13:46-0400 Diastolic blood pressure 70 mm[Hg] Liliana Bennett APRN.ENGINEERING TEST SPECIALIST Work Phone: [facility] 03-22-2025 13:46-0400 Heart rate 78 /min Liliana Bennett APRN.ENGINEERING TEST SPECIALIST Work Phone: [facility] 03-22-2025 13:46-0400 SaO2% (BldA) [Mass fraction] 98 % Liliana Bennett APRN.ENGINEERING TEST SPECIALIST Work Phone: [facility] 03-22-2025 13:46-0400 Systolic blood pressure 140 mm[Hg] Liliana Bennett APRN.ENGINEERING TEST SPECIALIST Work Phone: [facility] 02-09-2025 10:03-0400 Body mass index (BMI) [Ratio] 36.39 kg/m2 Bean Isaac MD Work Phone: [facility] 02-09-2025 10:03-0400 Body weight 85.19 kg Bean Isaac MD Work Phone: [facility] 02-09-2025 10:03-0400 Diastolic blood pressure 78 mm[Hg] Bean Isaac MD Work Phone: [facility] 02-09-2025 10:03-0400 Heart rate 84 /min Bean Isaac MD Work Phone: [facility] 02-09-2025 10:03-0400 SaO2% (BldA) [Mass fraction] 95 % Bean Isaac MD Work Phone: [facility] 02-09-2025 10:03-0400 Systolic blood pressure 122 mm[Hg] Bean Isaac MD Work Phone: [facility] 02-06-2025 10:53-0400 Body height 152.[address] Preet Farrar DO Work Phone: [facility] 02-06-2025 10:53-0400 Body mass index (BMI) [Ratio] 36.6 kg/m2 Dr. Preet Farrar DO Work Phone: [facility] 02-06-2025 10:53-0400 Body weight 84.[address] Preet Farrar DO Work Phone: [facility] 02-06-2025 10:53-0400 Diastolic blood pressure 60 mm[Hg] Dr. Preet Farrar DO Work Phone: [facility] 02-06-2025 10:53-0400 Systolic blood pressure 136 mm[Hg] Dr. Preet Farrar DO Work Phone: [phone])490-0680[address] [place] [address] 01-26-2025 08:18-0400 Body mass index (BMI) [Ratio] 36.1 kg/m2 Dr. Preet Farrar DO Work Phone: [phone])[phone] [place] [address] 01-26-2025 08:18-0400 Body weight 83.[address] Preet Farrar DO Work Phone: 8(860)346-949579 [place] [address] 01-26-2025 08:18-0400 Diastolic blood pressure 82 mm[Hg] Dr. Preet Farrar DO Work Phone: [phone])074-824779 [place] [address] 01-26-2025 08:18-0400 Heart rate 82 /min Dr. Preet Farrar DO Work Phone: [phone])[phone] [place] [address] 01-26-2025 08:18-0400 Respiratory rate 18 /min Dr. Preet Farrar DO Work Phone: [phone])178-967279 [place] [address] 01-26-2025 08:18-0400 Systolic blood pressure 144 mm[Hg] Dr. Preet Farrar DO Work Phone: [phone])969-660579 [place] [address] 01-09-2025 11:11-0400 Body mass index (BMI) [Ratio] 36.1 kg/m2 Dr. Preet Farrar DO Work Phone: [phone])397-733979 [place] [address] 01-09-2025 11:11-0400 Body weight 84.[address] Preet Farrar DO Work Phone: 2(589)524-944779 [place] [address] 01-09-2025 11:11-0400 Diastolic blood pressure 87 mm[Hg] Dr. Preet Farrar DO Work Phone: [phone])260-502679 [place] [address] 01-09-2025 11:11-0400 Systolic blood pressure 145 mm[Hg] Dr. Preet Farrar DO Work Phone: [phone])552-148079 [place] [address] 12-28-2024 14:12-0400 Body temperature 98.5 [degF] Dr. Preet Farrar DO Work Phone: [phone])[phone] [place] [address] 12-28-2024 14:12-0400 Diastolic blood pressure 68 mm[Hg] Dr. Preet Farrar DO Work Phone: 8(114)120-208979 [place] [address] 12-28-2024 14:12-0400 Heart rate 66 /min Dr. Preet Farrar DO Work Phone: [facility] 12-28-2024 14:12-0400 Respiratory rate 16 /min Dr. Preet Farrar DO Work Phone: [phone] [place] [address] 12-28-2024 14:12-0400 SaO2% (BldA) [Mass fraction] 93 % Dr. Preet Farrar DO Work Phone: [phone])085-689179 [place] [address] 12-28-2024 14:12-0400 Systolic blood pressure 159 mm[Hg] Dr. Preet Farrar DO Work Phone: 6(751)208-192779 [place] [address] 12-27-2024 20:10-0400 Inhaled oxygen concentration 99 % Dr. Preet Farrar DO Work Phone: 2(684)032-758079 [place] [address] 12-27-2024 20:10-0400 Inhaled oxygen flow rate 2 L/min Dr. Preet Farrar DO Work Phone: [phone])004-255479 [place] [address] 12-27-2024 18:19-0400 Body height 152.[address] Preet Farrar DO Work Phone: [phone])924-000279 [place] [address] 12-27-2024 18:19-0400 Body mass index (BMI) [Ratio] 36.4 kg/m2 Dr. Preet Farrar DO Work Phone: [phone])324-462479 [place] [address] 12-27-2024 18:19-0400 Body weight 84.[address] Preet Farrar DO Work Phone: 6(307)[phone] [place] [address] 12-14-2024 11:02-0400 Body height 153 cm Preet Farrar DO Work Phone: [facility] 12-14-2024 11:02-0400 Body mass index (BMI) [Ratio] 36.04 kg/m2 Preet Farrar DO Work Phone: [facility] 12-14-2024 11:02-0400 Body temperature 97 [degF] Preet Farrar DO Work Phone: [facility] 12-14-2024 11:02-0400 Body weight 84.37 kg Preet Farrar DO Work Phone: [facility] 12-14-2024 11:02-0400 Diastolic blood pressure 70 mm[Hg] Preet Farrar DO Work Phone: [facility] 12-14-2024 11:02-0400 Heart rate 64 /min Preet Farrar DO Work Phone: [facility] 12-14-2024 11:02-0400 Respiratory rate 16 /min Preet Farrar DO Work Phone: [facility] 12-14-2024 11:02-0400 Systolic blood pressure 136 mm[Hg] Preet Farrar DO Work Phone: [facility] 12-12-2024 10:53-0400 Body mass index (BMI) [Ratio] 36.7 kg/m2 Dr. Preet Farrar DO Work Phone: [facility] 12-12-2024 10:53-0400 Body weight 85.[address] Preet Farrar DO Work Phone: [facility] 12-12-2024 10:53-0400 Diastolic blood pressure 59 mm[Hg] Dr. Preet Farrar DO Work Phone: [facility] 12-12-2024 10:53-0400 Systolic blood pressure 152 mm[Hg] Dr. Preet Farrar DO Work Phone: [facility] 11-11-2024 09:46-0500 Body mass index (BMI) [Ratio] 33.98 kg/m2 Bean Isaac MD Work Phone: [facility] 11-11-2024 09:46-0500 Body temperature 97.11 [degF] Bean Isaac MD Work Phone: [facility] 11-11-2024 09:46-0500 Body weight 81.65 kg Bean Isaac MD Work Phone: [facility] 11-11-2024 09:46-0500 Diastolic blood pressure 74 mm[Hg] Bean Isaac MD Work Phone: [facility] 11-11-2024 09:46-0500 Heart rate 89 /min Bean Isaac MD Work Phone: [facility] 11-11-2024 09:46-0500 SaO2% (BldA) [Mass fraction] 97 % Bean Isaac MD Work Phone: [facility] 11-11-2024 09:46-0500 Systolic blood pressure 124 mm[Hg] Bean Isaac MD Work Phone: [facility] 10-07-2024 10:58-0500 Body height 155 cm Preet Farrar DO Work Phone: [facility] 10-07-2024 10:58-0500 Body mass index (BMI) [Ratio] 34.38 kg/m2 Preet Farrar DO Work Phone: [facility] 10-07-2024 10:58-0500 Body temperature 97 [degF] Preet Farrar DO Work Phone: [facility] 10-07-2024 10:58-0500 Body weight 82.6 kg Preet Farrar DO Work Phone: [facility] 10-07-2024 10:58-0500 Diastolic blood pressure 60 mm[Hg] Preet Farrar DO Work Phone: [facility] 10-07-2024 10:58-0500 Heart rate 64 /min Preet Farrar DO Work Phone: [facility] 10-07-2024 10:58-0500 Respiratory rate 20 /min Preet Farrar DO Work Phone: [facility] 10-07-2024 10:58-0500 Systolic blood pressure 116 mm[Hg] Preet Farrar DO Work Phone: [facility] 09-13-2024 13:58-0500 Body mass index (BMI) [Ratio] 35.3 kg/m2 Dr. Preet Farrar DO Work Phone: [facility] 09-13-2024 13:58-0500 Body weight 82.[address] Preet Farrar DO Work Phone: [facility] 09-13-2024 13:58-0500 Diastolic blood pressure 69 mm[Hg] Dr. Preet Farrar DO Work Phone: [facility] 09-13-2024 13:58-0500 Heart rate 69 /min Dr. Preet Farrar DO Work Phone: 3(738)[phone] [place] [address] 09-13-2024 13:58-0500 Respiratory rate 18 /min Dr. Preet Farrar DO Work Phone: 6(987)[phone] [place] [address] 09-13-2024 13:58-0500 SaO2% (BldA) [Mass fraction] 96 % Dr. Preet Farrar DO Work Phone: [facility] 09-13-2024 13:58-0500 Systolic blood pressure 153 mm[Hg] Dr. Preet Farrar DO Work Phone: [facility] 08-11-2024 09:47-0500 Body mass index (BMI) [Ratio] 35.58 kg/m2 Bean Isaac MD Work Phone: [facility] 08-11-2024 09:47-0500 Body temperature 98.2 [degF] Bean Isaac MD Work Phone: [facility] 08-11-2024 09:47-0500 Body weight 82.64 kg Bean Isaac MD Work Phone: [facility] 08-11-2024 09:47-0500 Diastolic blood pressure 67 mm[Hg] Bean Isaac MD Work Phone: [facility] 08-11-2024 09:47-0500 Heart rate 69 /min Bean Isaac MD Work Phone: [facility] 08-11-2024 09:47-0500 SaO2% (BldA) [Mass fraction] 97 % Bean Isaac MD Work Phone: [facility] 08-11-2024 09:47-0500 Systolic blood pressure 150 mm[Hg] Bean Isaac MD Work Phone: [facility] 06-14-2024 14:18-0400 Body mass index (BMI) [Ratio] 33.58 kg/m2 Preet Farrar DO Work Phone: [facility] 06-14-2024 14:18-0400 Body temperature 98.01 [degF] Preet Farrar DO Work Phone: [facility] 06-14-2024 14:18-0400 Body weight 78 kg Preet Farrar DO Work Phone: [facility] 06-14-2024 14:18-0400 Diastolic blood pressure 70 mm[Hg] Preet Farrar DO Work Phone: [facility] 06-14-2024 14:18-0400 Heart rate 76 /min Preet Farrar DO Work Phone: [facility] 06-14-2024 14:18-0400 Respiratory rate 16 /min Preet Farrar DO Work Phone: [facility] 06-14-2024 14:18-0400 Systolic blood pressure 136 mm[Hg] Preet Farrar DO Work Phone: [facility] 05-25-2024 14:32-0400 Body mass index (BMI) [Ratio] 32.89 kg/m2 Catalina Podlogar BUFFER OPERATOR.ENGINEERING TEST SPECIALIST Work Phone: [facility] 05-25-2024 14:32-0400 Body weight 76.4 kg Catalina Podlogar BUFFER OPERATOR.ENGINEERING TEST SPECIALIST Work Phone: [facility] 05-25-2024 14:32-0400 Diastolic blood pressure 72 mm[Hg] Catalina Podlogar BUFFER OPERATOR.ENGINEERING TEST SPECIALIST Work Phone: [facility] 05-25-2024 14:32-0400 Heart rate 80 /min Catalina Podlogar BUFFER OPERATOR.ENGINEERING TEST SPECIALIST Work Phone: [facility] 05-25-2024 14:32-0400 Respiratory rate 18 /min Catalina Podlogar BUFFER OPERATOR.ENGINEERING TEST SPECIALIST Work Phone: [facility] 05-25-2024 14:32-0400 SaO2% (BldA) [Mass fraction] 93 % Catalina Young BUFFER OPERATOR.ENGINEERING TEST SPECIALIST Work Phone: [facility] 05-25-2024 14:32-0400 Systolic blood pressure 106 mm[Hg] Catalina Young BUFFER OPERATOR.ENGINEERING TEST SPECIALIST Work Phone: [facility] 05-10-2024 13:29-0400 Body height 152.4 cm Bean Isaac MD Work Phone: [facility] 05-10-2024 13:29-0400 Body mass index (BMI) [Ratio] 33.55 kg/m2 Bean Isaac MD Work Phone: [facility] 05-10-2024 13:29-0400 Body weight 77.93 kg Bean Isaac MD Work Phone: [facility] 05-10-2024 13:29-0400 Diastolic blood pressure 78 mm[Hg] Bean Isaac MD Work Phone: [facility] 05-10-2024 13:29-0400 Heart rate 76 /min Bean Isaac MD Work Phone: [facility] 05-10-2024 13:29-0400 Respiratory rate 18 /min Bean Isaac MD Work Phone: [facility] 05-10-2024 13:29-0400 SaO2% (BldA) [Mass fraction] 97 % Bean Isaac MD Work Phone: [facility] 05-10-2024 13:29-0400 Systolic blood pressure 138 mm[Hg] Bean Isaac MD Work Phone: [facility] 03-21-2024 10:23-0400 Body mass index (BMI) [Ratio] 31.83 kg/m2 Preet Farrar DO Work Phone: [facility] 03-21-2024 10:23-0400 Body temperature 96.69 [degF] Preet Farrar DO Work Phone: [facility] 03-21-2024 [id number] Body weight 73.94 kg Preet Farrar DO Work Phone: [facility] 03-21-2024 10:23-0400 Diastolic blood pressure 80 mm[Hg] Preet Farrar DO Work Phone: [facility] 03-21-2024 10:23-0400 Heart rate 64 /min Preet Farrar DO Work Phone: [facility] 03-21-2024 [id number] Respiratory rate 16 /min Preet Farrar DO Work Phone: [facility] 03-21-2024 10:23-0400 Systolic blood pressure 136 mm[Hg] Preet Farrar DO Work Phone: [facility] 01-27-2024 10:55-0400 Body mass index (BMI) [Ratio] 32.15 kg/m2 Jacqueline Candelario BUFFER OPERATOR.ENGINEERING TEST SPECIALIST Work Phone: [facility] 01-27-2024 10:55-0400 Body weight 74.67 kg Jacqueline Candelario BUFFER OPERATOR.ENGINEERING TEST SPECIALIST Work Phone: [facility] 01-27-2024 10:55-0400 Diastolic blood pressure 68 mm[Hg] Jacqueline Candelario BUFFER OPERATOR.ENGINEERING TEST SPECIALIST Work Phone: [facility] 01-27-2024 10:55-0400 Heart rate 64 /min Jacqueline Candelario BUFFER OPERATOR.ENGINEERING TEST SPECIALIST Work Phone: [facility] 01-27-2024 10:55-0400 Respiratory rate 16 /min Jacqueline Candelario BUFFER OPERATOR.ENGINEERING TEST SPECIALIST Work Phone: [facility] 01-27-2024 10:55-0400 Systolic blood pressure 124 mm[Hg] Jacqueline Candelario BUFFER OPERATOR.ENGINEERING TEST SPECIALIST Work Phone: [facility] 01-06-2024 11:06-0400 Body weight 74.39 kg Jacqueline Candelario BUFFER OPERATOR.ENGINEERING TEST SPECIALIST Work Phone: [facility] 01-06-2024 11:06-0400 Diastolic blood pressure 64 mm[Hg] Jacqueline Candelario BUFFER OPERATOR.ENGINEERING TEST SPECIALIST Work Phone: [facility] 01-06-2024 11:06-0400 Heart rate 62 /min Jacqueline Candelario BUFFER OPERATOR.ENGINEERING TEST SPECIALIST Work Phone: [facility] 01-06-2024 11:06-0400 Respiratory rate 16 /min Jacqueline Candelario BUFFER OPERATOR.ENGINEERING TEST SPECIALIST Work Phone: [facility] 01-06-2024 11:06-0400 Systolic blood pressure 130 mm[Hg] Jacqueline Candelario BUFFER OPERATOR.ENGINEERING TEST SPECIALIST Work Phone: [facility] 01-02-2024 12:34-0400 Body temperature 97.39 [degF] Jemima Iyer BUFFER OPERATOR.ENGINEERING TEST SPECIALIST Work Phone: [facility] 01-02-2024 12:34-0400 Body weight 74.1 kg Jemima Iyer BUFFER OPERATOR.ENGINEERING TEST SPECIALIST Work Phone: [facility] 01-02-2024 12:34-0400 Diastolic blood pressure 82 mm[Hg] Jemima Iyer BUFFER OPERATOR.ENGINEERING TEST SPECIALIST Work Phone: [facility] 01-02-2024 12:34-0400 Heart rate 80 /min Jemima Iyer BUFFER OPERATOR.ENGINEERING TEST SPECIALIST Work Phone: [facility] 01-02-2024 12:34-0400 Respiratory rate 16 /min Jemima Iyer BUFFER OPERATOR.ENGINEERING TEST SPECIALIST Work Phone: [facility] 01-02-2024 12:34-0400 SaO2% (BldA) [Mass fraction] 98 % Jemima Iyer BUFFER OPERATOR.ENGINEERING TEST SPECIALIST Work Phone: [facility] 01-02-2024 12:34-0400 Systolic blood pressure 132 mm[Hg] Jemima Iyer BUFFER OPERATOR.ENGINEERING TEST SPECIALIST Work Phone: [facility] 12-09-2023 17:34-0400 Body temperature 97.39 [degF] Preet Farrar DO Work Phone: [facility] 12-09-2023 17:34-0400 Body weight 74.39 kg Preet Farrar DO Work Phone: [facility] 12-09-2023 17:34-0400 Diastolic blood pressure 80 mm[Hg] Preet Farrar DO Work Phone: [facility] 12-09-2023 17:34-0400 Heart rate 80 /min Preet Farrar DO Work Phone: [facility] 12-09-2023 17:34-0400 Respiratory rate 12 /min Preet Farrar DO Work Phone: [facility] 12-09-2023 17:34-0400 Systolic blood pressure 130 mm[Hg] Preet Farrar DO Work Phone: [facility] 11-25-2023 02:49-0500 Blood Pressure Cuff Size ELOISA LEVIN MD [facility] 11-25-2023 02:49-0500 Blood Pressure Location ELOISA LEVIN MD [facility] 11-25-2023 02:49-0500 Blood Pressure Method ELOISA LEVIN MD [facility] 11-25-2023 02:49-0500 Diastolic Blood Pressure Non-Invasive 80 mm[Hg] ELOISA LEVIN MD [facility] 11-25-2023 02:49-0500 Systolic Blood Pressure Non-Invasive 164 mm[Hg] ELOISA LEVIN MD [facility] 11-25-2023 00:35-0500 Diastolic Blood Pressure Non-Invasive 83 mm[Hg] ELOISA LEVIN MD [facility] 11-25-2023 00:35-0500 Heart rate 79 /min ELOISA LEVIN MD [facility] 11-25-2023 00:35-0500 Respiratory rate 18 /min ELOISA LEVIN MD [facility] 11-25-2023 00:35-0500 Systolic Blood Pressure Non-Invasive 177 mm[Hg] ELOISA LEVIN MD [facility] 11-24-2023 22:22-0500 Diastolic Blood Pressure Non-Invasive 81 mm[Hg] ELOISA LEVIN MD [facility] 11-24-2023 22:22-0500 Heart rate 72 /min ELOISA LEVIN MD [facility] 11-24-2023 22:22-0500 Respiratory rate 20 /min ELOISA LEVIN MD [facility] 11-24-2023 22:22-0500 Systolic Blood Pressure Non-Invasive 147 mm[Hg] ELOISA LEVIN MD [facility] 11-24-2023 18:48-0500 Body temperature 98.06 [degF] ELOISA LEVIN MD [facility] 11-24-2023 18:48-0500 Body weight 76.7 kg ELOISA LEVIN MD [facility] 11-24-2023 18:48-0500 Heart rate 80 /min ELOISA LEVIN MD [facility] 11-24-2023 18:48-0500 Respiratory rate 20 /min ELOISA LEVIN MD [facility] 11-19-2023 09:24-0500 Body weight 76.2 kg Jacqueline Candelario BUFFER OPERATOR.ENGINEERING TEST SPECIALIST Work Phone: [facility] 11-19-2023 09:24-0500 Diastolic blood pressure 60 mm[Hg] Jacqueline Candelario BUFFER OPERATOR.ENGINEERING TEST SPECIALIST Work Phone: [facility] 11-19-2023 09:24-0500 Heart rate 64 /min Jacqueline Candelario BUFFER OPERATOR.ENGINEERING TEST SPECIALIST Work Phone: [facility] 11-19-2023 09:24-0500 Respiratory rate 12 /min Jacqueline Candelario BUFFER OPERATOR.ENGINEERING TEST SPECIALIST Work Phone: [facility] 11-19-2023 09:24-0500 Systolic blood pressure 100 mm[Hg] Jacqueline Candelario BUFFER OPERATOR.ENGINEERING TEST SPECIALIST Work Phone: [facility] 11-13-2023 08:57-0500 Body weight 76.2 kg Jacqueline Candelario BUFFER OPERATOR.ENGINEERING TEST SPECIALIST Work Phone: [facility] 11-13-2023 08:57-0500 Diastolic blood pressure 70 mm[Hg] Jacqueline Candelario BUFFER OPERATOR.ENGINEERING TEST SPECIALIST Work Phone: [facility] 11-13-2023 08:57-0500 Heart rate 64 /min Jacqueline Candelario BUFFER OPERATOR.ENGINEERING TEST SPECIALIST Work Phone: [facility] 11-13-2023 08:57-0500 Respiratory rate 16 /min Jacqueline Candelario BUFFER OPERATOR.ENGINEERING TEST SPECIALIST Work Phone: [facility] 11-13-2023 08:57-0500 Systolic blood pressure 160 mm[Hg] Jacqueline Candelario BUFFER OPERATOR.ENGINEERING TEST SPECIALIST Work Phone: [facility] 10-29-2023 09:13-0500 Body weight 75.75 kg Jacqueline Candelario BUFFER OPERATOR.ENGINEERING TEST SPECIALIST Work Phone: [facility] 10-29-2023 09:13-0500 Diastolic blood pressure 62 mm[Hg] Jacqueline Candelario BUFFER OPERATOR.ENGINEERING TEST SPECIALIST Work Phone: [facility] 10-29-2023 09:13-0500 Heart rate 64 /min Jacqueline Candelario BUFFER OPERATOR.ENGINEERING TEST SPECIALIST Work Phone: [facility] 10-29-2023 09:13-0500 Respiratory rate 14 /min Jacqueline Candelario BUFFER OPERATOR.ENGINEERING TEST SPECIALIST Work Phone: [facility] 10-29-2023 09:13-0500 Systolic blood pressure 150 mm[Hg] Jacqueline Candelario BUFFER OPERATOR.ENGINEERING TEST SPECIALIST Work Phone: [facility] 07-27-2023 10:58-0400 Body height 152.[address] Preet Farrar Work Phone: [facility] 07-27-2023 10:58-0400 Body temperature 98 [degF] Dr. Preet Farrar Work Phone: [facility] 07-27-2023 10:58-0400 Diastolic blood pressure 80 mm[Hg] Dr. Preet Farrar Work Phone: [facility] 07-27-2023 10:58-0400 Heart rate 88 /min Dr. Preet Farrar Work Phone: [facility] 07-27-2023 10:58-0400 Respiratory rate 15 /min Dr. Preet Farrar Work Phone: [facility] 07-27-2023 10:58-0400 SaO2% (BldA) [Mass fraction] 98 % Dr. Preet Farrar Work Phone: 2(977)862-723509 [place] [address] 07-27-2023 10:58-0400 Systolic blood pressure 129 mm[Hg] Dr. Preet Farrar Work Phone: [facility] 07-15-2023 10:01-0400 Body weight 72.85 kg Kathryn Martir BUFFER OPERATOR.ENGINEERING TEST SPECIALIST Work Phone: [facility] 07-15-2023 10:01-0400 Diastolic blood pressure 74 mm[Hg] Kathryn Martir BUFFER OPERATOR.ENGINEERING TEST SPECIALIST Work Phone: [facility] 07-15-2023 10:01-0400 Heart rate 84 /min Kathryn Martir BUFFER OPERATOR.ENGINEERING TEST SPECIALIST Work Phone: [facility] 07-15-2023 10:01-0400 Respiratory rate 16 /min Kathryn Martir BUFFER OPERATOR.ENGINEERING TEST SPECIALIST Work Phone: [facility] 07-15-2023 10:01-0400 SaO2% (BldA) [Mass fraction] 98 % Kathryn Martir BUFFER OPERATOR.ENGINEERING TEST SPECIALIST Work Phone: [facility] 07-15-2023 10:01-0400 Systolic blood pressure 126 mm[Hg] Kathryn Martir BUFFER OPERATOR.ENGINEERING TEST SPECIALIST Work Phone: [facility] 07-03-2023 08:40-0400 Body temperature 97.9 [degF] Dr. Preet Farrar Work Phone: [facility] 07-03-2023 08:40-0400 Diastolic blood pressure 55 mm[Hg] Dr. Preet Farrar Work Phone: 1(589)459-054261 [place] [address] 07-03-2023 08:40-0400 Heart rate 69 /min Dr. Preet Farrar Work Phone: 0(809)[phone] [place] [address] 07-03-2023 08:40-0400 Respiratory rate 16 /min Dr. Preet Farrar Work Phone: 2(481)446-310179 [place] [address] 07-03-2023 08:40-0400 SaO2% (BldA) [Mass fraction] 97 % Dr. Preet Farrar Work Phone: 6(948)697-113661 [place] [address] 07-03-2023 08:40-0400 Systolic blood pressure 139 mm[Hg] Dr. Preet Farrar Work Phone: 6(518)958-436579 [place] [address] 07-03-2023 05:54-0400 Body mass index (BMI) [Ratio] 30.7 kg/m2 Dr. Preet Farrar Work Phone: [facility] 07-03-2023 05:54-0400 Body weight 71.[address] Preet Farrar Work Phone: [facility] 06-26-2023 09:04-0400 Body weight 71.31 kg Jacqueline Candelario BUFFER OPERATOR.ENGINEERING TEST SPECIALIST Work Phone: [facility] 06-26-2023 09:04-0400 Diastolic blood pressure 60 mm[Hg] Jacqueline Candelario BUFFER OPERATOR.ENGINEERING TEST SPECIALIST Work Phone: [facility] 06-26-2023 09:04-0400 Heart rate 100 /min Jacqueline Candelario BUFFER OPERATOR.ENGINEERING TEST SPECIALIST Work Phone: [facility] 06-26-2023 09:04-0400 Respiratory rate 14 /min Jacqueline Candelario BUFFER OPERATOR.ENGINEERING TEST SPECIALIST Work Phone: [facility] 06-26-2023 09:04-0400 Systolic blood pressure 122 mm[Hg] Jacqueline Candelario BUFFER OPERATOR.ENGINEERING TEST SPECIALIST Work Phone: [facility] 06-19-2023 10:41-0400 Body weight 74.39 kg Kathryn Martir BUFFER OPERATOR.ENGINEERING TEST SPECIALIST Work Phone: [facility] 06-19-2023 10:41-0400 Diastolic blood pressure 68 mm[Hg] Kathryn Martir BUFFER OPERATOR.ENGINEERING TEST SPECIALIST Work Phone: [facility] 06-19-2023 10:41-0400 Heart rate 73 /min Kathryn Martir BUFFER OPERATOR.ENGINEERING TEST SPECIALIST Work Phone: [facility] 06-19-2023 10:41-0400 Respiratory rate 16 /min Kathryn Martir BUFFER OPERATOR.ENGINEERING TEST SPECIALIST Work Phone: [facility] 06-19-2023 10:41-0400 SaO2% (BldA) [Mass fraction] 97 % Kathryn Martir BUFFER OPERATOR.ENGINEERING TEST SPECIALIST Work Phone: [facility] 06-19-2023 10:41-0400 Systolic blood pressure 118 mm[Hg] Kathryn Martir BUFFER OPERATOR.ENGINEERING TEST SPECIALIST Work Phone: [facility] 04-30-2023 08:37-0400 Body weight 75.03 kg Jacqueline Candelario BUFFER OPERATOR.ENGINEERING TEST SPECIALIST Work Phone: [facility] 04-30-2023 08:37-0400 Diastolic blood pressure 82 mm[Hg] Jacqueline Candelario BUFFER OPERATOR.ENGINEERING TEST SPECIALIST Work Phone: [facility] 04-30-2023 08:37-0400 Heart rate 60 /min Jacqueline Candelario BUFFER OPERATOR.ENGINEERING TEST SPECIALIST Work Phone: [facility] 04-30-2023 08:37-0400 Respiratory rate 16 /min Jacqueline Candelario BUFFER OPERATOR.ENGINEERING TEST SPECIALIST Work Phone: [facility] 04-30-2023 08:37-0400 Systolic blood pressure 132 mm[Hg] Jacqueline Candelariogolden TINEOENGINEERING TEST SPECIALIST Work Phone: [facility] 03-18-2023 10:27-0400 Body temperature 97.5 [degF] Preet Farrar DO Work Phone: [facility] 03-18-2023 10:27-0400 Body weight 76.66 kg Preet Farrar DO Work Phone: [facility] 03-18-2023 10:27-0400 Diastolic blood pressure 80 mm[Hg] Preet Farrar DO Work Phone: [facility] 03-18-2023 10:27-0400 Heart rate 80 /min Preet Farrar DO Work Phone: [facility] 03-18-2023 10:27-0400 Respiratory rate 16 /min Preet Farrar DO Work Phone: [facility] 03-18-2023 10:27-0400 Systolic blood pressure 130 mm[Hg] Preet Farrar DO Work Phone: [facility] 03-16-2023 09:56-0400 Body height 152.[address] Preet Farrar Work Phone: [facility] 03-16-2023 09:56-0400 Body mass index (BMI) [Ratio] 32.9 kg/m2 Dr. Preet Farrar Work Phone: [facility] 03-16-2023 09:56-0400 Body temperature 98.2 [degF] Dr. Preet Farrar Work Phone: [facility] 03-16-2023 09:56-0400 Body weight 76.[address] Preet Farrar Work Phone: [facility] 03-16-2023 09:56-0400 Diastolic blood pressure 70 mm[Hg] Dr. Preet Farrar Work Phone: [facility] 03-16-2023 09:56-0400 Heart rate 78 /min Dr. Preet Farrar Work Phone: [facility] 03-16-2023 09:56-0400 Respiratory rate 17 /min Dr. Preet Farrar Work Phone: [facility] 03-16-2023 09:56-0400 SaO2% (BldA) [Mass fraction] 96 % Dr. Preet Farrar Work Phone: [facility] 03-16-2023 09:56-0400 Systolic blood pressure 136 mm[Hg] Dr. Preet Farrar Work Phone: [facility] 12-10-2022 09:04-0400 Body temperature 97 [degF] Preet Farrar DO Work Phone: [facility] 12-10-2022 09:04-0400 Body weight 79.83 kg Preet Dumontrison DO Work Phone: [facility] 12-10-2022 09:04-0400 Diastolic blood pressure 80 mm[Hg] Preet Farrar DO Work Phone: [facility] 12-10-2022 09:04-0400 Heart rate 68 /min Preet Farrar DO Work Phone: [facility] 12-10-2022 09:04-0400 Respiratory rate 16 /min Preet Farrar DO Work Phone: [facility] 12-10-2022 09:04-0400 Systolic blood pressure 138 mm[Hg] Preet Dumontrison DO Work Phone: [facility] 11-05-2022 11:17-0500 Body weight 79.56 kg Jacqueline Candelario BUFFER OPERATOR.ENGINEERING TEST SPECIALIST Work Phone: [facility] 11-05-2022 11:17-0500 Diastolic blood pressure 62 mm[Hg] Jacqueline Candelario BUFFER OPERATOR.ENGINEERING TEST SPECIALIST Work Phone: [facility] 11-05-2022 11:17-0500 Heart rate 72 /min Jacqueline Candelario BUFFER OPERATOR.ENGINEERING TEST SPECIALIST Work Phone: [facility] 11-05-2022 11:17-0500 Respiratory rate 16 /min Jacqueline Candelario BUFFER OPERATOR.ENGINEERING TEST SPECIALIST Work Phone: [facility] 11-05-2022 11:17-0500 Systolic blood pressure 110 mm[Hg] Jacqueline Candelario APRN.ENGINEERING TEST SPECIALIST Work Phone: [facility] 11-04-2022 12:18-0500 Body mass index (BMI) [Ratio] 34.7 kg/m2 Dr. Preet Farrar Work Phone: [facility] 11-04-2022 12:16-0500 Body temperature 98.4 [degF] Dr. Preet Farrar Work Phone: [facility] 11-04-2022 12:16-0500 Diastolic blood pressure 61 mm[Hg] Dr. Preet Farrar Work Phone: [facility] 11-04-2022 12:16-0500 Heart rate 63 /min Dr. Preet Farrar Work Phone: [facility] 11-04-2022 12:16-0500 Respiratory rate 15 /min Dr. Preet Farrar Work Phone: [facility] 11-04-2022 12:16-0500 SaO2% (BldA) [Mass fraction] 95 % Dr. Preet Farrar Work Phone: [facility] 11-04-2022 12:16-0500 Systolic blood pressure 123 mm[Hg] Dr. Preet Farrar Work Phone: [facility] 11-02-2022 17:26-0500 Body height 152.[address] Preet Farrar Work Phone: [facility] 11-02-2022 17:26-0500 Body weight 80.[address] Preet Farrar Work Phone: [facility] 02-19-2022 11:46-0400 Diastolic blood pressure 80 mm[Hg] Preet Farrar DO Work Phone: [facility] 02-19-2022 11:46-0400 Systolic blood pressure 160 mm[Hg] Preet Farrar DO Work Phone: [facility] 02-19-2022 11:20-0400 Body temperature 97.39 [degF] Preet Farrar DO Work Phone: [facility] 02-19-2022 11:20-0400 Heart rate 64 /min Preet Farrar DO Work Phone: [facility] 02-19-2022 11:20-0400 Respiratory rate 16 /min Preet Farrar DO Work Phone: [facility] 01-31-2022 11:15-0400 Diastolic blood pressure 84 mm[Hg] Kathryn Martir BUFFER OPERATOR.ENGINEERING TEST SPECIALIST Work Phone: [facility] 01-31-2022 11:15-0400 Heart rate 66 /min Kathryn Valeroman BUFFER OPERATOR.ENGINEERING TEST SPECIALIST Work Phone: [facility] 01-31-2022 11:15-0400 Respiratory rate 16 /min Kathryn Rivero BUFFER OPERATOR.ENGINEERING TEST SPECIALIST Work Phone: [facility] 01-31-2022 11:15-0400 Systolic blood pressure 156 mm[Hg] Kathryn Valeroman BUFFER OPERATOR.ENGINEERING TEST SPECIALIST Work Phone: [facility] 01-23-2022 16:37-0400 Body temperature 97.9 [degF] Nataly Ryan APRN.ENGINEERING TEST SPECIALIST Work Phone: [facility] 01-23-2022 16:37-0400 Diastolic blood pressure 96 mm[Hg] Nataly Ryan APRN.ENGINEERING TEST SPECIALIST Work Phone: [facility] 01-23-2022 16:37-0400 Heart rate 79 /min Nataly Ryan APRN.ENGINEERING TEST SPECIALIST Work Phone: [facility] 01-23-2022 16:37-0400 Respiratory rate 18 /min Nataly Ryan APRN.ENGINEERING TEST SPECIALIST Work Phone: [facility] 01-23-2022 16:37-0400 SaO2% (BldA) [Mass fraction] 98 % Nataly Ryan APRN.ENGINEERING TEST SPECIALIST Work Phone: [facility] 01-23-2022 16:37-0400 Systolic blood pressure 182 mm[Hg] Nataly Ryan ENGINEERING TEST SPECIALIST Work Phone: [facility] 12-28-2020 10:47-0400 Body Temperature 96.69 [degF] d Sophieli JAZMINA Work Phone: 12-28-2020 10:47-0400 BP Diastolic 73 mm[Hg] d Almyoannali [facility] Work Phone: 12-28-2020 10:47-0400 BP Systolic 124 mm[Hg] d Almyoannali [facility] Work Phone: 12-28-2020 10:47-0400 Pulse (Heart Rate) 89 /min d Almyoannali [facility] Work Phone: 12-28-2020 10:47-0400 Pulse Oximetry 97 % d Sophieli [facility] Work Phone: 12-28-2020 10:47-0400 Respiratory Rate 18 /min d Sophieli JAZMINA Work Phone: 12-21-2020 04:30-0400 BMI (Body Mass Index) 35.15 kg/m2 d Sophieli JAZMINA Work Phone: 12-21-2020 04:30-0400 Body weight 81.65 kg d Sophieli JAZMINA Work Phone: 12-21-2020 04:30-0400 Height 152.4 cm d Sophieli JAZMINA Work Phone: Encounters Encounter Date Encounter Type Care Provider Facility Start: 04-06-2025 End: 04-07-2025 Telephone encounter Preet Farrar DO Work Phone: [facility] Comment on above: Insurance Authorizat ion Start: 04-03-2025 End: 04-03-2025 Refill Preet Farrar DO Work Phone: [facility] Comment on above: Refill Request Start: 03-29-2025 End: 03-29-2025 ambulatory [facility] Facility:[facility] Start: 03-24-2025 End: 03-24-2025 Follow-up encounter Liliana Bennett APRN.ENGINEERING TEST SPECIALIST Work Phone: [facility] Start: 03-22-2025 End: 03-22-2025 Office outpatient visit 15 minutes Liliana Bennett APRN.ENGINEERING TEST SPECIALIST Work Phone: [facility] Comment on above: Uncontrolled type 2 diabetes mellitus with hyperglycemia (HCC); Screening for depression Start: 03-22-2025 End: 03-22-2025 Refill Liliana Bennett APRN.ENGINEERING TEST SPECIALIST Work Phone: [facility] Start: 03-18-2025 End: 03-20-2025 Telephone encounter Preet Farrar DO Work Phone: [facility] Comment on above: Patient Update Start: 03-16-2025 End: 03-16-2025 Telephone encounter Preet Farrar DO Work Phone: [facility] Comment on above: Patient Question (re : insulin) Start: 02-17-2025 End: 02-17-2025 ambulatory PREET FARRAR Facility:[facility] Start: 02-16-2025 End: 02-16-[address] Preet Farrar DO Work Phone: [facility] Work Phone: Start: 02-16-2025 End: 02-16-[address] Julien Reyna MD -[facility] Work Phone: Start: 02-16-2025 End: 02-16-2025 ambulatory Preet Farrar Facility:[facility] Start: 02-14-2025 End: 02-14-2025 ambulatory BEAN ISAAC Facility:[facility] Start: 02-09-2025 End: 02-09-2025 Patient encounter procedure Bean Isaac MD Work Phone: Endocrinology Comment on above: Type 2 diabetes belinda itus with other circulatory complication, with long-term current use of insulin (HCC) (Primary Dx); Abnormal weight gain Start: 02-09-2025 End: 02-09-2025 ambulatory BEAN ISAAC Facility:[facility] Start: 02-06-2025 End: 02-06-[address] Anushka Hall MD -[facility] Work Phone: Start: 02-06-2025 End: 02-06-2025 ambulatory Preet Farrar Facility:[facility] Start: 01-26-2025 End: 01-26-[address] Julien Reyna MD -[facility] Work Phone: Start: 01-26-2025 End: 01-26-2025 ambulatory Preet Farrar Facility:[facility] Start: 01-09-2025 End: 01-09-[address] Anushka Hall MD -[facility] Work Phone: Start: 01-09-2025 End: 01-09-2025 ambulatory Preet Farrar Facility:[facility] Start: 01-04-2025 Encounter for other preprocedural examination Anushka Hall [facility] Start: 01-03-2025 End: 02-03-2025 ambulatory Preet L Farrar DO Work Phone: [facility] [place] Start: 12-30-2024 End: 01-03-2025 ambulatory Preet L Farrar DO Work Phone: [facility] Comment on above: High Blood Sugar Start: 12-29-2024 End: 01-02-2025 Telephone encounter Preet L Farrar DO Work Phone: [facility] [place] Comment on above: Patient Question Start: 12-28-2024 Non-patient / Non-visit Dr. Ton Hall MD -[facility] Start: 12-27-2024 Non-patient / Non-visit Dr. Renae Dallas MD -[facility] Work Phone: Start: 12-27-2024 End: 12-28-2024 Evaluation and management of inpatient Dr. Anushka Hall MD -[facility] 3 Work Phone: Start: 12-27-2024 ambulatory Preet Farrar Facilit y:[facility] Start: 12-27-2024 Non-patient / Non-visit Dr. Ton Hall MD -[facility] Start: 12-21-2024 End: 12-21-2024 Telephone encounter Preet Schmitt Farrar DO Work Phone: [facility] [place] Comment on above: Prior Authorization Request Start: 12-19-2024 End: 12-19-2024 Telephone encounter Preet L Farrar DO Work Phone: [facility] [place] Comment on above: Patient Question; Up coming Surgery Start: 12-15-2024 End: 12-15-2024 ambulatory Preet Dumontrison Facility:[facility] Start: 12-15-2024 End: 12-15-2024 Non-patient / Non-visit Dr. Jamel Gray MD -[facility] Work Phone: Start: 12-14-2024 End: 12-14-2024 Telephone encounter Preet Dumontrison DO Work Phone: [facility] [place] Comment on above: Medication Question Start: 12-14-2024 End: 12-14-2024 ambulatory PREET L FARRAR Facility:[facility] Start: 12-14-2024 End: 12-14-2024 Patient encounter procedure Preet Dumontrison DO Work Phone: [facility] [place] Comment on above: Uncontrolled type 2 diabetes mellitus with hyperglycemia (HCC) (Primary Dx); Hyperlipidemia, mixed; Vitamin B12 deficiency; Vitamin D deficiency; Essential hypertension, benign; Acquired hypothyroidism; Pre-op examination Start: 12-14-2024 End: 12-14-2024 Preprocedural examination done Preet Keshia DumontFarrar DO Work Phone: [facility] Start: 12-12-2024 End: 12-12-[address] Anushka Hall MD -[facility] Work Phone: Start: 12-12-2024 End: 12-12-2024 ambulatory Preet Dumontrison Facility:[facility] Start: 12-01-2024 End: 12-01-2024 Refill Preet Schmitt Farrar DO Work Phone: [facility] [place] Comment on above: Refill Request Start: 11-29-2024 End: 11-29-2024 Refill Preet L Farrar DO Work Phone: [facility] [place] Comment on above: Refill Request Start: 11-16-2024 End: 11-16-2024 ambulatory BEAN ISAAC Facility:[facility] Start: 11-11-2024 End: 11-11-2024 ambulatory BAEN GARCIA WALLBACKROLANDA Facility:[facility] Start: 11-11-2024 End: 11-11-2024 Patient encounter procedure Bean Isaac MD Work Phone: Endocrinology Comment on above: Abnormal results of thyroid function studies (Primary Dx) Start: 11-07-2024 End: 11-07-2024 ambulatory PREET DUMONTRISON Facility:[facility] Start: 11-01-2024 End: 11-01-2024 Refill Preet L Farrar DO Work Phone: [facility] [place] Comment on above: Refill Request Start: 10-10-2024 ambulatory Preet Dumontrison Facilit y:[facility] Start: 10-10-2024 Non-patient / Non-visit Dr. Julien villanueva MD -[facility] Start: 10-10-2024 End: 10-10-[address] Julien Reyna MD -Cardiovascular Services Work Phone: Start: 10-10-2024 End: 10-10-2024 ambulatory Preet Farrar Facility:[facility] Start: 10-07-2024 End: 10-07-2024 ambulatory PREET L FARRAR Facility:[facility] Start: 10-07-2024 End: 10-07-2024 Patient encounter procedure Preet L Farrar DO Work Phone: [facility] [place] Comment on above: Medicare annual well ness visit, subsequent (Primary Dx); Uncontrolled type 2 diabetes mellitus with hyperglycemia (HCC); Vitamin B12 deficiency; 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, without long-term current use of insulin (HCC); Hypothyroidism, unspecified type; Hyperlipidemia, mixed; Essential hypertension, benign; Acquired hypothyroidism; Vitamin D deficiency Start: 10-05-2024 End: 10-05-2024 ambulatory BEANFERNANDEZ CALHOUNDY AMANDA Facility:[facility] Start: 10-04-2024 End: 10-04-2024 Telephone encounter Preet Farrar DO Work Phone: [facility] [place] Start: 09-13-2024 End: 09-13-[address] Anushka Hall MD -[facility] Work Phone: Start: 09-13-2024 End: 09-13-2024 ambulatory Preet Farrar Facility:[facility] Start: 09-12-2024 End: 10-04-2024 Telephone encounter Preet Farrar DO Work Phone: [facility] Comment on above: Results Start: 09-06-2024 ambulatory Preet Farrar Facilit y:[facility] Start: 09-06-2024 Non-patient / Non-visit Dr. Hermes chowdary MD -[facility] Start: 09-06-2024 End: 09-06-[address] Julien Reyna MD -Cardiovascular Services Work Phone: Start: 09-06-2024 End: 09-06-2024 ambulatory Preet Farrar Facility:[facility] Start: 2024 End: 2024 Refill Preet Farrar DO Work Phone: [facility] Comment on above: Refill Request Start: 08-17-2024 End: 08-17-2024 ambulatory Preet Farrar Facility:[facility] Start: 08-11-2024 End: 08-11-2024 ambulatory BEAN GARCIA [facility] Facility:[facility] Start: 08-11-2024 End: 08-15-2024 Patient encounter procedure Bean Isaac MD Work Phone: Endocrinology Comment on above: Type 2 diabetes belinda itus with other circulatory complication, with long-term current use of insulin (HCC) (Primary Dx) Refill Request Start: 08-10-2024 End: 08-10-2024 ambulatory Preet Farrar Facility[facility] Start: 08-09-2024 End: 08-09-2024 ambulatory Jackson Saravia MA [facility] [place] Start: 08-09-2024 End: 08-09-2024 Patient encounter procedure Jackson Saravia [facility] Comment on above: Population Health Na vigation Outreach (AWV INITIATIVE) Start: 07-26-2024 End: 07-26-2024 ambulatory Preet Farrar Facility:[facility] Start: 07-21-2024 End: 07-21-2024 ambulatory Preet Farrar [facility] Start: 07-20-2024 End: 07-21-2024 Telephone encounter Preet L Farrar DO Work Phone: [facility] [place] Start: 07-19-2024 End: 07-25-2024 Telephone encounter Preet L Farrar DO Work Phone: [facility] [place] Comment on above: Faxed Labs; Surgical Clearance Forms Start: 07-19-2024 End: 07-19-2024 ambulatory Preet Farrar Facility[facility] Start: 07-15-2024 End: 07-25-2024 Telephone encounter Preet L Farrar DO Work Phone: [facility] Comment on above: Results Start: 07-15-2024 End: 07-15-2024 ambulatory PREET L FARRAR Facility:[facility] Start: 07-07-2024 End: 07-07-2024 ambulatory Preet Farrar [facility] Start: 06-17-2024 End: 06-17-2024 Refill Preet L Farrar DO Work Phone: [facility] [place] Comment on above: Refill Request Start: 06-15-2024 End: 06-15-2024 Refill Preet L Farrar DO Work Phone: [facility] [place] Comment on above: Refill Request Start: 06-14-2024 End: 06-14-2024 ambulatory PREET L FARRAR Facility:[facility] Start: 06-14-2024 End: 06-14-2024 Patient encounter procedure Preet Dumontrison DO Work Phone: [facility] Comment on above: Uncontrolled type 2 diabetes mellitus with hyperglycemia (HCC) (Primary Dx); Acquired hypothyroidism; Essential hypertension, benign; Vitamin B12 deficiency; Hyperlipidemia, mixed; Tobacco use disorder; Vitamin D deficiency Start: 06-08-2024 End: 06-09-2024 ambulatory Preet Farrar Facility:[facility] Start: 06-08-2024 End: 06-08-2024 ambulatory Preet Farrar Facility:[facility] Start: 06-06-2024 End: 06-06-2024 ambulatory Preet Farrar Facility:[facility] Start: 06-06-2024 End: 06-06-2024 ambulatory Preet Farrar Facility:[facility] Start: 06-04-2024 End: 06-04-2024 ambulatory Preet Farrar Facility:[facility] Start: 06-02-2024 End: 06-02-2024 ambulatory [facility] Facility:[facility] Start: 06-02-2024 End: 06-02-2024 ambulatory Preet Farrar Facility:[facility] Start: 05-25-2024 End: 05-25-2024 Patient encounter procedure Catalina Young APRN.ENGINEERING TEST SPECIALIST Work Phone: [facility] [place] Comment on above: Thickened endometriu m (Primary Dx); LLQ pain Start: 05-25-2024 End: 05-25-2024 ambulatory CATALINA YOUNG Facility:[facility] Start: 05-23-2024 End: 05-23-2024 Telephone encounter Preet Farrar DO Work Phone: [facility] [place] Comment on above: Future Appointment Refill Request Start: 05-22-2024 End: 05-22-2024 Emergency department patient visit Preet Farrar Facility:[facility] Start: 05-17-2024 End: 05-17-2024 ambulatory PREET L FARRAR Facility:[facility] Start: 05-17-2024 Encounter for genera l adult medical examination without abnormal findings LILIANA SABRINA [facility] Start: 05-10-2024 End: 10-04-2024 Telephone encounter Preet Farrar DO Work Phone: [facility] Comment on above: Blood Pressure; Orde rs (lab work orders needed. the orders from november is ) Start: 05-10-2024 End: 05-10-2024 ambulatory BEAN ISAAC Facility:[facility] Start: 05-10-2024 End: 05-10-2024 Patient encounter procedure Bean Isaac MD Work Phone: Endocrinology Comment on above: Type 2 diabetes belinda itus with other circulatory complication, with long-term current use of insulin (HCC) (Primary Dx) Start: 05-03-2024 End: 05-03-2024 ambulatory PREET WAYNEON Facility:[facility] Start: 04-12-2024 Telephone encounter Preet rojas DO Work Phone: [facility] Comment on above: Patient Update (Bloo d Sugar Readings) Start: 03-22-2024 Telephone encounter Preet rojas DO Work Phone: [facility] Comment on above: Insulin [place] Start: 03-21-2024 End: 03-21-2024 Patient encounter procedure Preet Farrar DO Work Phone: [facility] Comment on above: Gastroenteritis (Marleen darline Dx); Uncontrolled type 2 diabetes mellitus with hyperglycemia (HCC); Acquired hypothyroidism; Obesity, Class I, BMI 30-34.9; Acute dehydration; Situational anxiety Start: 03-10-2024 Patient Outreach Preet greco DO Work Phone: [facility] Comment on above: Transition Of Care Start: 03-05-2024 ambulatory Preet Farrar Facilit y:[facility] Start: 03-05-2024 End: 03-09-2024 Evaluation and management of inpatient Preet Farrar Facility:[facility] Start: 02-29-2024 Refill Preet franks DO Work Phone: [facility] Comment on above: Refill Request Start: 02-15-2024 Telephone encounter Jacqueline franks BUFFER OPERATOR.ENGINEERING TEST SPECIALIST Work Phone: [facility] Comment on above: Blood Sugar Readings Start: 02-03-2024 ambulatory Preet franks DO Work Phone: [facility] [place] Start: 02-02-2024 Refill Preet franks DO Work Phone: [facility] [place] Comment on above: Refill Request Start: 01-27-2024 End: 01-27-2024 Patient encounter procedure Jacqueline Candelario APRN.ENGINEERING TEST SPECIALIST Work Phone: [facility] [place] Comment on above: Uncontrolled type 2 diabetes mellitus with hyperglycemia (HCC) (Primary Dx); Vaginal yeast infection; Poor sleep Start: 01-12-2024 Telephone encounter Preet rojas DO Work Phone: [facility] Comment on above: Medication Problem; yeast infection again Start: 01-06-2024 End: 01-06-2024 Refill Preet Farrar DO Work Phone: [facility] [place] Comment on above: Refill Request Uncontrolled type 2 diabetes mellitus with hyperglycemia (HCC) (Primary Dx); Situational anxiety Start: 01-03-2024 Telephone encounter Altagracia De Guzman APRN.ENGINEERING TEST SPECIALIST Work Phone: [facility] Comment on above: Results Start: 01-02-2024 ambulatory Preet franks DO Work Phone: [facility] [place] Comment on above: vaginal symptoms Start: 01-02-2024 End: 01-02-2024 Patient encounter procedure Jemima Iyer APRN.ENGINEERING TEST SPECIALIST Work Phone: [facility] Comment on above: Vaginal itching (Marleen darline Dx); Dysuria; Glucosuria Start: 12-24-2023 Telephone encounter Preet rojas DO Work Phone: [facility] [place] Comment on above: Patient Question Start: 12-17-2023 End: 12-17-2023 ambulatory [facility] Work Phone: Start: 12-17-2023 End: 12-17-2023 Patient encounter procedure [facility] [place], [facility] Work Phone: Start: 12-09-2023 End: 12-09-2023 Patient encounter procedure Preet Farrar DO Work Phone: [facility] [place] Comment on above: Uncontrolled type 2 diabetes mellitus with hyperglycemia (HCC) (Primary Dx); Nonrheumatic aortic valve stenosis; Hyperlipidemia, mixed; Disease of spinal cord (HCC); Renal artery stenosis (HCC); Other ulcerative colitis without complications (HCC); 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, without long-term current use of insulin (HCC); Acquired hypothyroidism; Essential hypertension, benign; Situational anxiety Start: 12-08-2023 Refill Preet franks DO Work Phone: [facility] [place] Comment on above: Refill Request Start: 11-25-2023 Telephone encounter Jacqueline franks BUFFER OPERATOR.ENGINEERING TEST SPECIALIST Work Phone: [facility] Comment on above: Medication Request Start: 11-24-2023 End: 11-25-2023 Emergency department patient visit PREET FARRAR DO Facility:[facility] Start: 11-24-2023 End: 11-25-2023 Emergency department patient visit ELOISA LEVIN MD [facility] Start: 11-19-2023 Telephone encounter Jacuqeline franks BUFFER OPERATOR.ENGINEERING TEST SPECIALIST Work Phone: [facility] [place] Start: 11-19-2023 End: 11-19-2023 Patient encounter procedure Jacqueline Candelario BUFFER OPERATOR.ENGINEERING TEST SPECIALIST Work Phone: [facility] [place] Comment on above: Essential hypertensi on, benign (Primary Dx); Situational anxiety Start: 11-18-2023 Telephone encounter Jacqueline franks BUFFER OPERATOR.ENGINEERING TEST SPECIALIST Work Phone: [facility] [place] Comment on above: Results Start: 11-13-2023 End: 11-13-2023 Patient encounter procedure Jacqueline Candelario BUFFER OPERATOR.ENGINEERING TEST SPECIALIST Work Phone: [facility] [place] Comment on above: Essential hypertensi on, benign (Primary Dx); Acquired hypothyroidism; Controlled type 2 diabetes mellitus without complication, with long-term current use of insulin (HCC); Uncontrolled type 2 diabetes mellitus with hyperglycemia (HCC) Start: 11-12-2023 Telephone encounter Preet rojas DO Work Phone: [facility] Comment on above: Patient Update Start: 10-29-2023 End: 10-29-2023 Patient encounter procedure Jacqueline Candelario [place].ENGINEERING TEST SPECIALIST Work Phone: [facility] [place] Comment on above: Essential hypertensi on, benign (Primary Dx) Start: 08-04-2023 Telephone encounter Preet rojas DO Work Phone: [facility] [place] Comment on above: Medication Question Start: 07-31-2023 Telephone encounter Preet March arrison DO Work Phone: [facility] [place] Comment on above: Results Start: 07-29-2023 ambulatory [facility] [place] [facility] [place] Comment on above: Population Health Na vigation Outreach ([facility] care gap) Start: 07-29-2023 Telephone encounter Preet Keshia Joaquim montoyafannie DO Work Phone: [facility] Comment on above: Insurance Authorizat ion Start: 07-28-2023 Telephone encounter Preet motnoyafannie DO Work Phone: [facility] [place] Comment on above: Call from Dr. Kaylin lui, Neurologist Start: 07-27-2023 End: 07-27-[address] Preet Farrar Work Phone: [facility] Work Phone: Start: 07-27-2023 End: 07-27-[address] Preet Farrar Work Phone: [facility] Work Phone: Start: 07-27-2023 End: 07-27-[address] Preet Farrar Work Phone: [facility] Neurology Work Phone: Start: 07-22-2023 Telephone encounter Kathryn Milton erik AVILA.ENGINEERING TEST SPECIALIST Work Phone: [facility] [place] Comment on above: Medication Problem Start: 07-15-2023 End: 07-15-2023 Patient encounter procedure Kathryn Rivero APRN.ENGINEERING TEST SPECIALIST Work Phone: [facility] Comment on above: Uncontrolled type 2 diabetes mellitus with hyperglycemia (HCC) (Primary Dx); Acquired hypothyroidism; Essential hypertension, benign; Renal artery stenosis (HCC) Start: 07-06-2023 Telephone encounter Preet rojas DO Work Phone: [facility] Start: 07-03-2023 Non-patient / Non-visit Dr. Edita Farrar Work Phone: [facility] Work Phone: Start: 07-02-2023 Non-patient / Non-visit Dr. Edita Farrar Work Phone: [facility] Work Phone: Start: 07-01-2023 End: 07-03-2023 Evaluation and management of inpatient Dr. Preet Farrar Work Phone: [facility]-Progressive Care Unit Work Phone: Start: 07-01-2023 Telephone encounter Preet rojas DO Work Phone: [facility] Comment on above: Patient Update Start: 06-26-2023 End: 06-26-2023 Patient encounter procedure Jacqueline Candelario APRN.ENGINEERING TEST SPECIALIST Work Phone: [facility] Comment on above: Nausea and vomiting, unspecified vomiting type (Primary Dx); Hyperglycemia; Controlled type 2 diabetes mellitus without complication, without long-term current use of insulin (HCC) Start: 06-19-2023 End: 06-19-2023 Patient encounter procedure Kathryn Rivero APRN.ENGINEERING TEST SPECIALIST Work Phone: [facility] Comment on above: Uncontrolled type 2 diabetes mellitus with hyperglycemia (HCC) (Primary Dx); Acquired hypothyroidism; Vitamin B12 deficiency Start: 05-18-2023 Refill Preet franks DO Work Phone: [facility] Comment on above: Refill Request Start: 05-14-2023 End: 05-14-[address] Preet Farrar Work Phone: [facility] Work Phone: Start: 05-14-2023 End: 05-14-[address] Preet Farrar Work Phone: [facility] Work Phone: Start: 05-04-2023 Telephone encounter Preet rojas DO Work Phone: [facility] Comment on above: medication issue Start: 04-30-2023 End: 04-30-2023 Patient encounter procedure Jacqueline Kodak [place] Work Phone: [facility] Comment on above: Uncontrolled type 2 diabetes mellitus with hyperglycemia (HCC) Start: 04-09-2023 End: 04-09-[address] Preet Farrar Work Phone: [facility] Work Phone: Start: 04-09-2023 End: 04-09-[address] Preet Farrar Work Phone: [facility] Work Phone: Start: 03-24-2023 Telephone encounter Preet rojas DO Work Phone: [facility] Comment on above: [place] thyroid PA Start: 03-20-[address] Preet Farrar Work Phone: [facility] Work Phone: Start: 03-20-2023 End: 03-20-2023 Non-patient / Non-visit Dr. Preet Farrar Work Phone: [facility] Work Phone: Start: 03-18-2023 End: 03-18-2023 Patient encounter procedure Preet Farrar DO Work Phone: [facility] Comment on above: Uncontrolled type 2 diabetes mellitus with hyperglycemia (HCC) (Primary Dx); Acquired hypothyroidism; Dyslipidemia; History of tobacco abuse; Essential hypertension, benign Start: 03-16-2023 End: 03-16-[address] Preet Farrar Work Phone: [facility] Neurology Work Phone: Start: 03-03-2023 Refill Preet franks DO Work Phone: [facility] [place] Comment on above: Refill Request Start: 02-02-2023 Refill Preet franks DO Work Phone: [facility] [place] Comment on above: Refill Request Start: 12-23-2022 Telephone encounter Preet Schmitt Joaquim janfannie DO Work Phone: [facility] [place] Comment on above: Medication Problem; Patient Update Start: 12-15-2022 Telephone encounter Preet rojas DO Work Phone: [facility] [place] Comment on above: Patient Update Start: 12-10-2022 End: 12-10-2022 Patient encounter procedure Preet Farrar DO Work Phone: [facility] [place] Comment on above: Uncontrolled type 2 diabetes mellitus with hyperglycemia (HCC) (Primary Dx); Ischemic stroke without residual deficits (HCC); Dyslipidemia; Acquired hypothyroidism; Vitamin D deficiency; Vitamin B12 deficiency; History of tobacco abuse Start: 11-20-2022 End: 11-20-[address] Preet Farrar Work Phone: [facility] Work Phone: Start: 11-20-2022 End: 11-20-[address] Preet Farrar Work Phone: [facility]-Physical Therapy Start: 11-05-2022 End: 11-05-2022 Patient encounter procedure Jacqueline Candelario APRN.CNP Work Phone: [facility] [place] Comment on above: Ischemic stroke with out residual deficits (HCC) (Primary Dx); Essential hypertension, benign; Uncontrolled type 2 diabetes mellitus with hyperglycemia (HCC); Dyslipidemia; Encounter for smoking cessation counseling; Controlled type 2 diabetes mellitus without complication, without long-term current use of insulin (HCC) Start: 11-04-2022 Non-patient / Non-visit Dr. Edita Farrar Work Phone: [facility] Start: 11-03-2022 Non-patient / Non-visit Dr. Edita Farrar Work Phone: [facility] Start: 11-03-2022 Non-patient / Non-visit Dr. Edita Farrar Work Phone: [facility] [place] Start: 11-02-2022 Non-patient / Non-visit Dr. Edita Farrar Work Phone: [facility] Start: 11-02-2022 End: 11-04-2022 Evaluation and management of inpatient Dr. Preet Farrar Work Phone: [facility] Start: 11-02-2022 End: 11-04-[address] Preet Farrar Work Phone: [facility] Work Phone: Start: 11-02-2022 ambulatory Janis solorio RN NURSE TIMBER C[employer]TER Comment on above: Foot Deformity Start: 10-08-2022 Refill Preet franks DO Work Phone: [facility] Comment on above: Refill Request Start: 09-03-2022 Telephone encounter Preet rojas DO Work Phone: [facility] Comment on above: Patient Question; Or ders Start: 08-27-2022 Refill Preet franks DO Work Phone: [address] [place] [address] Comment on above: Refill Request Start: 05-28-2022 Refill Preet franks DO Work Phone: [facility] Comment on above: Refill Request Start: 05-06-2022 Refill Jacqueline loera APRN.ENGINEERING TEST SPECIALIST Work Phone: [facility] Comment on above: Refill Request Start: 04-09-2022 End: 04-09-2022 Patient encounter procedure [facility] Start: 04-07-2022 Telephone encounter Preet rojas DO Work Phone: [facility] Comment on above: Results Start: 04-02-2022 Refill Preet franks DO Work Phone: [facility] Comment on above: Refill Request Start: 03-26-2022 ambulatory Preet franks DO Work Phone: [facility] [place] Start: 02-28-2022 End: 02-28-2022 Subsequent hospital visit by physician Xr [facility] Mob Work Phone: Radiology Comment on above: Closed fracture of d istal end of left fibula, unspecified fracture morphology, initial encounter [L12.542A] Start: 02-27-2022 Telephone encounter Preet rojas DO Work Phone: [facility] Comment on above: Patient Question Start: 02-21-2022 Telephone encounter Preet rojas DO Work Phone: [facility] Comment on above: Results Start: 02-20-2022 Refill Preet franks DO Work Phone: [facility] Comment on above: Refill Request Start: 02-19-2022 End: 02-19-2022 Patient encounter procedure Preet Farrar DO Work Phone: [facility] Comment on above: Uncontrolled hyperte nsion (Primary Dx); Palpitations; Uncontrolled type 2 diabetes mellitus with hyperglycemia (HCC); Essential hypertension, benign; Acquired hypothyroidism Start: 02-12-2022 Telephone encounter Preet March arrfannie DO Work Phone: [facility] Comment on above: Patient Question; Wali smiley Update Start: 02-10-2022 End: 02-10-2022 Subsequent hospital visit by physician Giovani [facility] Work Phone: Radiology Comment on above: Closed fracture of d istal end of left fibula, unspecified fracture morphology, initial encounter [S48.062A] Start: 01-31-2022 End: 01-31-2022 Patient encounter procedure Kathryn Rivero ENGINEERING TEST SPECIALIST Work Phone: [facility] Comment on above: Essential hypertensi on, benign (Primary Dx); Acquired hypothyroidism; Controlled type 2 diabetes mellitus without complication, without long-term current use of insulin (HCC) Start: 01-30-2022 End: 01-30-2022 Patient encounter procedure Steve Rodriguez Work Phone: Podiatry Comment on above: Closed fracture of d istal end of left fibula, unspecified fracture morphology, initial encounter (Primary Dx) Start: 01-23-2022 End: 01-23-2022 Subsequent hospital visit by physician Xr [facility] Work Phone: Radiology Comment on above: Acute left ankle karie n [M25.572] Start: 01-23-2022 End: 01-23-2022 Patient encounter procedure Nataly Ryan APRN.ENGINEERING TEST SPECIALIST Work Phone: [facility] Comment on above: Acute left ankle karie n (Primary Dx) Start: 01-14-2022 Telephone encounter Preet rojas DO Work Phone: [facility] Comment on above: Insurance Authorizat ion Start: 06-07-2021 Telephone encounter Preet rojas DO Work Phone: [facility] Comment on above: Results Start: 12-21-2020 End: 12-28-2020 Evaluation and management of inpatient Mhd Jose Guillendavid Work Phone: [facility] Procedures Date Procedure Procedure Detail Performing Clinician Start: 03-22-2025 Adult depression screening assessment Liliana Bennett APRN.ENGINEERING TEST SPECIALIST Work Phone: Start: 02-16-2025 CT of abdominal vasc ular structures Dr. Preet Farrar DO Work Phone: Start: 02-09-2025 End: 02-09-2025 [facility] Provider Start: 12-28-[address] Preet Farrar DO Work Phone: Start: 12-27-[address] Hector Farrar DO Work Phone: Start: 11-11-2024 [facility] Pr ovider Start: 10-10-2024 Radionuclide imaging of perfusion of myocardium under exercise stress Dr. Preet Farrar DO Work Phone: Start: 01-06-2024 Hemoglobin A1c/Hemoglobin.total in Blood Jacqueline Candelario BUFFER OPERATOR.ENGINEERING TEST SPECIALIST Work Phone: Start: 01-02-2024 Gluc bld gluc mntr d ev cleared fda spec home use Jemima Iyer BUFFER OPERATOR.ENGINEERING TEST SPECIALIST Work Phone: Start: 01-02-2024 Urnls dip stick/tabl et rgnt auto w/o microscopy Jemima Iyer BUFFER OPERATOR.ENGINEERING TEST SPECIALIST Work Phone: Start: 12-17-2023 CT angiography of ne ck vessels Start: 07-02-[address] Preet Farrar Work Phone: Start: 07-01-2023 Plain chest X-ray Dr. Vanita Farrar Work Phone: Start: 07-01-2023 CT of head without contrast Dr. Preet Farrar Work Phone: Start: 07-01-[address] Preet Farrar Work Phone: Start: 11-03-2022 CT angiography of he ad and neck Dr. Preet Farrar Work Phone: Start: 11-02-2022 MRI of brain without contrast Dr. Preet Farrar Work Phone: Start: 11-02-2022 X-ray of lumbar spin e, two or three views Dr. Preet Farrar Work Phone: Start: 11-02-2022 CT of head without contrast Dr. Preet Farrar Work Phone: Start: 04-09-2022 Computed tomography angiography of abdominal and/or pelvic blood vessel Start: 02-28-2022 Radex ankle complete minimum 3 views Steve Rodriguez Work Phone: Start: 02-10-2022 Radex ankle complete minimum 3 views Steve Rodriguez Work Phone: Start: 01-23-2022 Radex ankle complete minimum 3 views Nataly Ryan APRFilemonENGINEERING TEST SPECIALIST Work Phone: Start: 04-24-2021 Adult depression screening assessment Preet Farrar DO Work Phone: Start: [...] d ev cleared fda spec home use Mhd Jose Guillenoselli Work Phone: Start: 12-25-2020 Gluc bld gluc mntr d ev cleared fda spec home use d Marield Sophieli Work Phone: Start: 12-25-2020 Gluc bld gluc mntr d ev cleared fda spec home use d Marield Sophieli Work Phone: Start: 12-25-2020 Gluc bld gluc mntr d ev cleared fda spec home use d Marield Sophieli Work Phone: Start: 12-25-2020 Gluc bld gluc mntr d ev cleared fda spec home use d Marield Sophieli Work Phone: Start: 12-24-2020 Gluc bld gluc mntr d ev cleared fda spec home use d Marield Sophieli Work Phone: Start: 12-24-2020 Gluc bld gluc mntr d ev cleared fda spec home use d Marield Lyric Work Phone: Start: 12-24-2020 Assay of thyroid stimulating hormone tsh d Jose Gunter Work Phone: Start: 12-24-2020 Gluc bld gluc mntr d ev cleared fda spec home use d Marield Lyric Work Phone: Start: 12-24-2020 Gluc bld gluc mntr d ev cleared fda spec home use d Marield Lyric Work Phone: Start: 12-24-2020 Gluc bld gluc mntr d ev cleared fda spec home use d Marield Sophieli Work Phone: Start: 12-24-2020 Blood count complete auto&auto difrntl wbc d Marield Sophieli Work Phone: Start: 12-24-2020 Gluc bld gluc mntr d ev cleared fda spec home use d Marield Wilmeroselli Work Phone: Start: 12-23-2020 Gluc bld gluc mntr d ev cleared fda spec home use araceli Gunter Work Phone: Start: 12-23-2020 Gluc bld gluc mntr d ev cleared fda spec home use araceli Gunter Work Phone: Start: 12-23-2020 Gluc bld gluc mntr d ev cleared fda spec home use araceli Gunter Work Phone: Start: 12-23-2020 Gluc bld gluc mntr d ev cleared fda spec home use araceli Gunter Work Phone: Start: 12-23-2020 Gluc bld gluc mntr d ev cleared fda spec home use araceli Gunter Work Phone: Start: 12-23-2020 Blood count complete auto&auto difrntl wbc araceli Gunter Work Phone: Start: 12-23-2020 Gluc bld gluc mntr d ev cleared fda spec home use araceli Gunter Work Phone: Start: 12-22-2020 Gluc bld gluc mntr d ev cleared fda spec home use araceli Gunter Work Phone: Start: 12-22-2020 Gluc bld gluc mntr d ev cleared fda spec home use araceli Gunter Work Phone: Start: 12-22-2020 Blood count complete auto&auto difrntl wbc [facility] Jose Gunter Work Phone: Start: 12-22-2020 MANUAL DIFFERENTIAL araceli Gunter Work Phone: Start: 12-22-2020 Gluc bld gluc mntr d ev cleared fda spec home use araceli Gunter Work Phone: Start: 12-22-2020 Glucose quantitative blood xcpt reagent strip araceli Gunter Work Phone: Start: 12-22-2020 Gluc bld gluc mntr d ev cleared fda spec home use Mhd Khaled Almoselli Work Phone: Start: 12-22-2020 Gluc bld gluc mntr d ev cleared fda spec home use Mhd Khaled Almoselli Work Phone: Start: 12-22-2020 Hemoglobin glycosyla milton a1c Treva Henderson Work Phone: Start: 12-21-2020 [...] Eggebrecht Work Phone: Start: 12-21-2020 Blood typing serolog ic abo Shilpi A Eggebrecht Work Phone: Start: 12-21-2020 Prothrombin time Zachar y A Eggebrecht Work Phone: Start: 12-21-2020 Thromboplastin time partial plasma/whole blood Shilpi A Eggebrecht Work Phone: Start: 12-21-2020 End: 12-22-2020 Gluc bld gluc mntr dev cleared fda spec home use Mhd Khaled Almoselli Work Phone: Start: 12-21-2020 Ecg routine ecg w/le ast 12 lds w/i&r Shilpi A Eggebrecht Work Phone: Start: 11-16-2013 Mammography Preet duckworthon DO Work Phone: Start: 09-09-2013 Colonoscopy Preet Dumont rison DO Work Phone: H/O: hysterectomy History of tot al vaginal hysterectomy (TVH) Dr. Preet Farrar DO Work Phone: Comment on above: SM endometrial hyper plasia H/O: hysterectomy History of tot al vaginal hysterectomy (TVH) Dr. Anushka Hall MD Hernia repair ELOISA LEVIN MD Special back care ELOISA MCKEON MD Tonsillectomy ELOISA LEVIN MD Plan of Treatment Date Care Activity Detail Author Start: 03-22-2026 Annual PCP Team Chronic Disease Visit Annual PCP Team Chronic Disease Visit [facility] Start: 03-22-2026 Depression Screening Depression Screening [facility] Start: 02-17-2026 Annual PCP Team Chronic Disease Visit Annual PCP Team Chronic Disease Visit [facility] Start: 02-09-2026 BP Controlled (<130/80) BP Controlled (<130/80) [facility] Start: 12-14-2025 Annual PCP Team Chronic Disease Visit Annual PCP Team Chronic Disease Visit [facility] Start: 11-11-2025 BP Controlled (<130/80) BP Controlled (<130/80) [facility] Start: 10-07-2025 Annual PCP Team Chronic Disease Visit Annual PCP Team Chronic Disease Visit [facility] Start: 10-07-2025 BP Controlled (<130/80) BP Controlled (<130/80) [facility] Start: 10-07-2025 Covid-19 Vaccine () Covid-19 Vaccine () [facility] Comment on above: Postponed from 05/29/2024 (Declined at t his time) Start: 10-05-2025 Hepatitis B surface antibody level LDL Cholesterol [facility] Start: 07-13-2025 Glaucoma screening Dilated Retinal Exam [facility] Start: 06-22-2025 Hemoglobin A1c measurement HbA1C [facility] Start: 06-14-2025 Annual PCP Team Chronic Disease Visit Annual PCP Team Chronic Disease Visit [facility] Start: 05-31-2025 End: 05-31-2025 Patient encounter procedure 05/31/2025 11:20 AM EDT Office Visit [facility] [address] [place], [place] [id number] Preet Farrar DO [address] [place] [address] 3 month follow up Family [facility] Comment on above: 3 month follow up Start: 05-29-2025 Influenza vaccination [facility] Start: 05-25-2025 Annual PCP Team Chronic Disease Visit Annual PCP Team Chronic Disease Visit [facility] Start: 05-25-2025 BP Controlled (<130/80) BP Controlled (<130/80) [facility] Start: 05-17-2025 Hepatitis B surface antibody level LDL Cholesterol [facility] Start: 04-10-2025 End: 04-10-2025 Patient encounter procedure 04/10/2025 10:00 AM EDT Office Visit Family [facility] [address] [place], [place] [address] Preet Farrar DO [address] [place], [place] [id number] 3 month follow up Family [facility] Comment on above: 3 month follow up Start: 04-04-2025 Hemoglobin A1c measurement HbA1C [facility] Start: 03-27-2025 Influenza vaccination Influenza Vaccine (#1) [facility] Comment on above: Postponed from 05/29/2024 (Declined at t his time) Start: 03-22-2025 End: 03-22-2025 Patient encounter procedure 03/22/2025 2:00 PM EDT Office Visit [facility] [address] [place], [place] [id number] Liliana Bennett APRN.ENGINEERING TEST SPECIALIST [address] [place], [place] [id number] Follow up-nausea for 1 week and diabetes [facility] Comment on above: Follow up-nausea for 1 week and diabetes Start: 03-21-2025 Annual PCP Team Chronic Disease Visit Annual PCP Team Chronic Disease Visit [facility] Start: 02-17-2025 End: 02-17-2025 Patient encounter procedure 02/17/2025 3:40 PM EDT Office Visit Family [facility] [address] [place] [address] Preet Farrar, DO [address] [place] [address] 3 month follow up [facility] Comment on above: 3 month follow up Start: 02-14-2025 End: 02-14-2025 Nursing evaluation of patient and report 02/14/2025 1:00 PM EDT Nurse Visit Endocrinology [address] [place] [address] Rodrigo Holguin, RN [address] [address] Type 2 diabetes mellitus with other circulatory complication, with long-term current use of insulin (HCC) [E11.59, Z79.4] Endocrinology Comment on above: Type 2 diabetes mellitus with other circ ulatory complication, with long-term current use of insulin (HCC) [E11.59, Z79.4] Start: 02-09-2025 End: 02-09-2025 Patient encounter procedure Endocrinology Comment on above: 3 mo follow up 3 mo follow up-DM Start: 01-26-2025 Annual PCP Team Chronic Disease Visit Annual PCP Team Chronic Disease Visit [facility] Start: 01-26-2025 BP Controlled (<130/80) BP Controlled (<130/80) [facility] Start: 01-05-2025 Annual PCP Team Chronic Disease Visit Annual PCP Team Chronic Disease Visit [facility] Start: 12-28-2024 Introduction of urinary catheter [facility] Start: 12-28-2024 End: 12-28-2024 [facility] Start: 12-28-2024 Patient discharge [facility] Start: 12-28-2024 Removal of urinary catheter [facility] Start: 12-27-2024 Following clinical pathway protocol [facility] Start: 12-27-2024 Consultation [facility] Start: 12-27-2024 Ambulation therapy management [facility] Start: 12-27-2024 Application of intermittent pneumatic compression device [facility] Start: 12-27-2024 Elevation of head of bed [facility] Start: 12-27-2024 Following clinical pathway protocol [facility] Start: 12-27-2024 Incentive spirometry [facility] Start: 12-27-2024 Measuring intake and output [facility] Start: 12-27-2024 Notification of physician [facility] Start: 12-27-2024 Oxygen therapy [facility] Start: 12-27-2024 Procedures relating to eating and drinking [facility] Start: 12-27-2024 Taking patient vital signs [facility] Start: 12-27-2024 [facility] Start: 12-27-2024 Introduction of urinary catheter [facility] Start: 12-27-2024 Admission procedure [facility] Start: 12-27-2024 [facility] Start: 12-14-2024 End: 12-14-2024 Patient encounter procedure 12/14/2024 11:00 AM EDT Office Visit [facility] [address] [place] [address] Preet Farrar DO [address] [place] [address] Pre op Exam [facility] Comment on above: Pre op Exam Start: 12-08-2024 Annual PCP Team Chronic Disease Visit Annual PCP Team Chronic Disease Visit [facility] Start: 12-08-2024 Glaucoma screening Dilated Retinal Exam [facility] Start: 11-19-2024 Annual PCP Team Chronic Disease Visit Annual PCP Team Chronic Disease Visit [facility] Start: 11-19-2024 BP Controlled (<130/80) BP Controlled (<130/80) [facility] Start: 11-17-2024 Hemoglobin A1c measurement HbA1C [facility] Start: 11-13-2024 Annual PCP Team Chronic Disease Visit Annual PCP Team Chronic Disease Visit [facility] Start: 11-13-2024 Covid-19 Vaccine (#1) Covid-19 Vaccine (#1) [facility] Comment on above: Postponed from 03/03/1956 (Declined at t his time) Start: 11-13-2024 Covid-19 Vaccine () Covid-19 Vaccine () [facility] Comment on above: Postponed from 05/29/2023 (Declined at t his time) Start: 11-13-2024 Hepatitis B screening Urine Albumin:Creatinine Ratio [facility] Start: 11-13-2024 Hepatitis B surface antibody level LDL Cholesterol [facility] Start: 11-13-2024 Pneumococcal Vaccine: 50+ (1 of 2 - PCV) Pneumococcal Vaccine: 50+ (1 of 2 - PCV) [facility] Comment on above: Postponed from 1974 (Declined at t his time) Start: 11-13-2024 Pneumococcal Vaccine: 65+ (1 of 2 - PCV) Pneumococcal Vaccine: 65+ (1 of 2 - PCV) [facility] Comment on above: Postponed from 1961 (Declined at t his time) Start: 11-13-2024 Shingrix Vaccine (1 of 2) Shingrix Vaccine (1 of 2) [facility] Comment on above: Postponed from 2005 (Declined at t his time) Start: 11-13-2024 Urine microalbumin profile DTaP,Tdap,Td Vaccine (1 - Tdap) [facility] Comment on above: Postponed from 1974 (Declined at t his time) Start: 11-11-2024 End: 02-10-2025 Thyrotropin [Units/volume] in Serum or Plasma THYROID STIMULATING HORMONE Lab Routine Abnormal results of thyroid function studies Expected: 11/11/2024, Expires: 02/10/2025 [facility] Work Phone: Comment on above: Expected: 11/11/2024, Expires: Start: 11-11-2024 End: 02-10-2025 THYROXIN, FR BY EQ DIALYSIS/HPLC-TNDMMS THYROXIN, FR BY EQ DIALYSIS/HPLC-TNDMMS Lab Routine Abnormal results of thyroid function studies Expected: 11/11/2024, Expires: 02/10/2025 [facility] Comment on above: Expected: 11/11/2024, Expires: Start: 11-11-2024 End: 11-11-2024 Patient encounter procedure 11/11/2024 9:40 AM EST Office Visit Endocrinology [address] [place] [address] Bean Isaac MD [address] [place] [address] 3 month follow up Endocrinology Comment on above: 3 month follow up Start: 11-01-2024 End: 11-01-2024 Patient encounter procedure 11/01/2024 1:00 PM EST Office Visit Cardiology [address] [address] Torri Hunt MD [address] [place], [place] [id number] Rescheduled from 07/25 Cardiology Comment on above: Rescheduled from 07/25 Start: 10-29-2024 Annual PCP Team Chronic Disease Visit Annual PCP Team Chronic Disease Visit [facility] Start: 10-07-2024 End: 10-07-2024 Patient encounter procedure [facility] Comment on above: 3 month follow up 3 month follow up-ne eds also Medicare wellness Start: 10-04-2024 End: 01-03-2025 CBC W Auto Differential panel - Blood COMPLETE BLOOD COUNT AND DIFFERENTIAL Lab Routine Hypothyroidism, unspecified type 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, without long-term current use of insulin (HCC) Expected: 10/04/2024, Expires: 01/03/2025 [facility] Comment on above: Expected: 10/04/2024, Expires: Start: 10-04-2024 End: 01-03-2025 Comprehensive metabolic 2000 panel - Serum or Plasma COMPREHENSIVE METABOLIC PANEL Lab Routine Hyperlipidemia, mixed Expected: 10/04/2024, Expires: 01/03/2025 [facility] Comment on above: Expected: 10/04/2024, Expires: Start: 10-04-2024 End: 01-03-2025 Hemoglobin A1c in Blood HEMOGLOBIN A1C Lab Routine 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, without long-term current use of insulin (HCC) Expected: 10/04/2024, Expires: 01/03/2025 [facility] Comment on above: Expected: 10/04/2024, Expires: Start: 10-04-2024 End: 01-03-2025 Lipid 1996 panel - Serum or Plasma LIPID PANEL BASIC Lab Routine Hyperlipidemia, mixed Expected: 10/04/2024, Expires: 01/03/2025 [facility] Comment on above: Expected: 10/04/2024, Expires: Start: 10-04-2024 End: 01-03-2025 Thyrotropin [Units/volume] in Serum or Plasma THYROID STIMULATING HORMONE Lab Routine Hypothyroidism, unspecified type Expected: 10/04/2024, Expires: 01/03/2025 [facility] Work Phone: Comment on above: Expected: 10/04/2024, Expires: Start: 10-04-2024 End: 01-03-2025 Thyroxine (T4) free [Mass/volume] in Serum or Plasma T4 FREE/FREE THYROXINE Lab Routine Hypothyroidism, unspecified type Expected: 10/04/2024, Expires: 01/03/2025 [facility] Comment on above: Expected: 10/04/2024, Expires: Start: 10-04-2024 End: 01-03-2025 Triiodothyronine (T3) Free [Mass/volume] in Serum or Plasma T3, FREE Lab Routine Hypothyroidism, unspecified type Expected: 10/04/2024, Expires: 01/03/2025 [facility] Comment on above: Expected: 10/04/2024, Expires: Start: 09-14-2024 RSV Vaccine (1 - 1-dose 60+ series) RSV Vaccine (1 - 1-dose 60+ series) [facility] Comment on above: Postponed from 2015 (Declined at t his time) Start: 09-14-2024 RSV Vaccine (1 - Risk 60-74 years 1-dose series) RSV Vaccine (1 - Risk 60-74 years 1-dose series) [facility] Comment on above: Postponed from 2015 (Declined at t his time) Start: 08-11-2024 End: 11-10-2024 Cortisol [Mass/volume] in Serum or Plasma --post dose dexamethasone CORTISOL SUPRES POST Lab Routine Type 2 diabetes mellitus with other circulatory complication, with long-term current use of insulin (HCC) Expected: 08/11/2024, Expires: 11/10/2024 [facility] Comment on above: Expected: 08/11/2024, Expires: 5 Start: 08-11-2024 End: 11-10-2024 DEXAMETHASONE DEXAMETHASONE Lab Routine Type 2 diabetes mellitus with other circulatory complication, with long-term current use of insulin (HCC) Expected: 08/11/2024, Expires: 11/10/2024 [facility] Work Phone: Comment on above: Expected: 08/11/2024, Expires: 5 Start: 08-11-2024 End: 08-11-2024 Patient encounter procedure 08/11/2024 9:40 AM EST Office Visit Endocrinology [address] [place] [id number] Bean Isaac MD [address] [place] [id number] 3 MTH F/U Endocrinology Comment on above: 3 MTH F/U Start: 07-25-2024 End: 07-25-2024 Patient encounter procedure 07/25/2024 10:20 AM EDT Office Visit Cardiology [address] [place] [id number] Jose Lay MD [address], [address] [place], [place] [id number] Uncontrolled type 2 diabetes mellitus with hyperglycemia (HCC) [E11.65] Cardiology Comment on above: Uncontrolled type 2 diabetes mellitus wi th hyperglycemia (HCC) [E11.65] Start: 07-15-2024 Annual PCP Team Chronic Disease Visit Annual PCP Team Chronic Disease Visit [facility] Start: 07-15-2024 BP Controlled (<130/80) BP Controlled (<130/80) [facility] Start: 07-15-2024 Hepatitis B Vaccine (1 of 3 - Risk 3-dose series) Hepatitis B Vaccine (1 of 3 - Risk 3-dose series) [facility] Comment on above: Postponed from 2015 (Declined at t his time) Start: 07-14-2024 End: 10-13-2024 Thyrotropin [Units/volume] in Serum or Plasma THYROID STIMULATING HORMONE Lab Routine Acquired hypothyroidism Expected: 07/14/2024, Expires: 10/13/2024 [facility] Work Phone: Comment on above: Expected: 07/14/2024, Expires: Start: 07-14-2024 End: 10-13-2024 Thyroxine (T4) free [Mass/volume] in Serum or Plasma T4 FREE/FREE THYROXINE Lab Routine Acquired hypothyroidism Expected: 07/14/2024, Expires: 10/13/2024 [facility] Comment on above: Expected: 07/14/2024, Expires: Start: 07-14-2024 End: 10-13-2024 Triiodothyronine (T3) Free [Mass/volume] in Serum or Plasma T3, FREE Lab Routine Acquired hypothyroidism Expected: 07/14/2024, Expires: 10/13/2024 [facility] Comment on above: Expected: 07/14/2024, Expires: Start: 07-07-2024 Hemoglobin A1c measurement HbA1C [facility] Start: 06-27-2024 End: 06-27-2024 Patient encounter procedure 06/27/2024 9:20 AM EDT Office Visit Family Bekah Tolbert [address] [place] [address] Preet Farrar DO [address] [place] [address] 2-3 month follow up Family Bekah Tolbert Comment on above: 2-3 month follow up Start: 06-26-2024 Annual PCP Team Chronic Disease Visit Annual PCP Team Chronic Disease Visit [facility] Start: 06-26-2024 BP Controlled (<130/80) BP Controlled (<130/80) [facility] Start: 06-19-2024 Annual PCP Team Chronic Disease Visit Annual PCP Team Chronic Disease Visit [facility] Start: 06-19-2024 BP Controlled (<130/80) BP Controlled (<130/80) [facility] Start: 06-15-2024 Hepatitis B surface antibody level LDL Cholesterol [facility] Start: 05-29-2024 Covid-19 Vaccine ( season) Covid-19 Vaccine ( season) [facility] Start: 05-29-2024 Covid-19 Vaccine ( season) Covid-19 Vaccine ( season) [facility] Start: 05-29-2024 Influenza vaccination [facility] Start: 05-25-2024 End: 05-25-2024 Patient encounter procedure 05/25/2024 2:40 PM EDT Office Visit Family Medicine Tomasz [address] [place] [address] PodlogCatalina arreguin APRN.ENGINEERING TEST SPECIALIST [address] [place] [address] [facility] ER 05/22/24 Left side pain Family Medicine Tomasz Comment on above: [facility] ER 05/22/24 Left side pain Start: 05-16-2024 Hemoglobin A1c measurement HbA1C [facility] Start: 05-13-2024 Hemoglobin A1c measurement HbA1C [facility] Start: 05-10-2024 End: 05-10-2024 Patient encounter procedure 05/10/2024 1:40 PM EDT Office Visit Endocrinology [address] [place] [address] Bean Isaac MD [address] [place] [address] Uncontrolled type 2 diabetes mellitus with hyperglycemia (HCC) [E11.65] Endocrinology Comment on above: Uncontrolled type 2 diabetes mellitus wi th hyperglycemia (HCC) [E11.65] Start: 04-30-2024 ANNUAL PCP TEAM CHRONIC DISEASE VISIT ANNUAL PCP TEAM CHRONIC DISEASE VISIT [facility] Start: 03-27-2024 Influenza vaccination Influenza Vaccine (#1) [facility] Jazmin rodríguez Comment on above: Postponed from 05/29/2023 (Declined at t his time) Start: 03-21-2024 End: 03-21-2024 Patient encounter procedure Family Medicine [facility] Comment on above: medicare wellness TCM. [facility] hosp f/u d/ c 03-09-24. Gastroenteritis. Hyperglycemia. Start: 03-18-2024 ANNUAL PCP TEAM CHRONIC DISEASE VISIT ANNUAL PCP TEAM CHRONIC DISEASE VISIT [facility] Start: 03-10-2024 End: 06-09-2024 CBC panel - Blood by Automated count CBC Lab Routine Uncontrolled type 2 diabetes mellitus with hyperglycemia (HCC) Expected: 03/10/2024, Expires: 06/09/2024 [facility] Work Phone: Comment on above: Expected: 03/10/2024, Expires: Start: 03-10-2024 End: 06-09-2024 Comprehensive metabolic 2000 panel - Serum or Plasma COMP METABOLIC PANEL Lab Routine Uncontrolled type 2 diabetes mellitus with hyperglycemia (HCC) Expected: 03/10/2024, Expires: 06/09/2024 [facility] Work Phone: Comment on above: Expected: 03/10/2024, Expires: Start: 03-10-2024 End: 06-09-2024 Hemoglobin A1c in Blood HGB A1C Lab Routine Uncontrolled type 2 diabetes mellitus with hyperglycemia (HCC) Expected: 03/10/2024, Expires: 06/09/2024 [facility] Work Phone: Comment on above: Expected: 03/10/2024, Expires: Start: 03-10-2024 Hepatitis B surface antibody level LDL CHOLESTEROL [facility] Start: 03-10-2024 End: 06-09-2024 Lipid 1996 panel - Serum or Plasma LIPID PANEL BASIC Lab Routine Hyperlipidemia, mixed Expected: 03/10/2024, Expires: 06/09/2024 [facility] Work Phone: Comment on above: Expected: 03/10/2024, Expires: 4 Start: 03-10-2024 End: 06-09-2024 Magnesium [Mass/volume] in Serum or Plasma MAGNESIUM Lab Routine Poor sleep Expected: 03/10/2024, Expires: 06/09/2024 [facility] Work Phone: Comment on above: Expected: 03/10/2024, Expires: Start: 03-10-2024 End: 06-09-2024 Thyrotropin [Units/volume] in Serum or Plasma TSH BLD Lab Routine Uncontrolled type 2 diabetes mellitus with hyperglycemia (HCC) Expected: 03/10/2024, Expires: 06/09/2024 [facility] Work Phone: Comment on above: Expected: 03/10/2024, Expires: 4 Start: 03-09-2024 Hemoglobin A1c measurement HbA1C [facility] Start: 02-17-2024 Glaucoma screening Dilated Retinal Exam [facility] Start: 02-17-2024 Hepatitis C antibody, confirmatory test DILATED RETINAL EXAM [facility] Start: 12-14-2023 Hemoglobin A1c/Hemoglobin.total in Blood HbA1C [facility] Start: 12-12-2023 End: 03-12-2024 ALBUMIN/CREAT RATIO RND UR ALBUMIN/CREAT RATIO RND UR Lab Routine Uncontrolled type 2 diabetes mellitus with hyperglycemia (HCC) Expected: 12/12/2023, Expires: 03/12/2024 [facility] Work Phone: Comment on above: Expected: 12/12/2023, Expires: 4 Start: 12-12-2023 End: 03-12-2024 Comprehensive metabolic 2000 panel - Serum or Plasma COMP METABOLIC PANEL Lab Routine Essential hypertension, benign Expected: 12/12/2023, Expires: 03/12/2024 [facility] Work Phone: Comment on above: Expected: 12/12/2023, Expires: 4 Start: 12-12-2023 End: 03-12-2024 Lipid 1996 panel - Serum or Plasma LIPID PANEL BASIC Lab Routine Essential hypertension, benign Expected: 12/12/2023, Expires: 03/12/2024 [facility] Work Phone: Comment on above: Expected: 12/12/2023, Expires: 4 Start: 12-11-2023 3 comp foot exam completed DIABETIC FOOT EXAM [facility] Start: 12-11-2023 ANNUAL PCP TEAM CHRONIC DISEASE VISIT ANNUAL PCP TEAM CHRONIC DISEASE VISIT [facility] Start: 12-11-2023 BP CONTROLLED (<130/80) BP CONTROLLED (<130/80) [facility] Start: 12-11-2023 Diabetic foot examination Diabetic Foot Exam [facility] Start: 12-03-2023 Hepatitis B surface antibody level LDL CHOLESTEROL [facility] Start: 11-13-2023 End: 02-12-2024 Thyrotropin [Units/volume] in Serum or Plasma [facility] Work Phone: Comment on above: Expected: 11/13/2023, Expires: Start: 11-13-2023 End: 02-12-2024 Thyroxine (T4) free [Mass/volume] in Serum or Plasma [facility] Work Phone: Comment on above: Expected: 11/13/2023, Expires: Start: 11-13-2023 End: 02-12-2024 Triiodothyronine (T3) [Mass/volume] in Serum or Plasma [facility] Work Phone: Comment on above: Expected: 11/13/2023, Expires: Start: 11-05-2023 ANNUAL PCP TEAM CHRONIC DISEASE VISIT ANNUAL PCP TEAM CHRONIC DISEASE VISIT [facility] Start: 11-05-2023 BP CONTROLLED (<130/80) BP CONTROLLED (<130/80) [facility] in Start: 11-05-2023 COVID-19 VACCINE (#1) COVID-19 VACCINE (#1) [facility] Comment on above: Postponed from 03/03/1956 (Declined at t his time) Start: 11-05-2023 Hepatitis B screening URINE ALBUMIN:CREATININE RATIO [facility] Start: 11-05-2023 Pneumococcal Vaccine: 65+ (1 - PCV) Pneumococcal Vaccine: 65+ (1 - PCV) [facility] Comment on above: Postponed from 1961 (Declined at t his time) Start: 11-05-2023 Pneumococcal Vaccine: 65+ (1 of 2 - PCV) Pneumococcal Vaccine: 65+ (1 of 2 - PCV) [facility] Comment on above: Postponed from 1961 (Declined at t his time) Start: 11-05-2023 PNEUMOCOCCAL: 65+ (1 - PCV) PNEUMOCOCCAL: 65+ (1 - PCV) [facility] Comment on above: Postponed from 1961 (Declined at t his time) Start: 11-05-2023 SHINGRIX VACCINE (1 of 2) SHINGRIX VACCINE (1 of 2) [facility] Comment on above: Postponed from 2005 (Declined at t his time) Start: 11-05-2023 Urine microalbumin profile [facility] Comment on above: Postponed from 1974 (Declined at t his time) Start: 09-28-2023 Behavioral Health Screening Behavioral Health Screening [facility] Start: 09-28-2023 Depression Assessment Depression Assessment [facility] Start: 09-28-2023 zzBehavioral Health Screening zzBehavioral Health Screening [facility] Start: 09-27-2023 DEPRESSION ASSESSMENT DEPRESSION ASSESSMENT [facility] Comment on above: Postponed from 09/28/2022 (Declined at t his time) Start: 09-18-2023 End: 11-18-2023 Cobalamin (Vitamin B12) [Mass/volume] in Serum or Plasma VITAMIN B12 BLOOD Lab Routine Vitamin B12 deficiency Expected: 09/18/2023, Expires: 11/18/2023 [facility] Work Phone: Comment on above: Expected: 09/18/2023, Expires: 4 Start: 09-18-2023 End: 11-18-2023 Hemoglobin A1c in Blood HGB A1C Lab Routine Uncontrolled type 2 diabetes mellitus with hyperglycemia (HCC) Expected: 09/18/2023, Expires: 11/18/2023 [facility] Work Phone: Comment on above: Expected: 09/18/2023, Expires: 4 Start: 09-18-2023 End: 11-18-2023 Thyrotropin [Units/volume] in Serum or Plasma TSH BLD Lab Routine Acquired hypothyroidism Expected: 09/18/2023, Expires: 11/18/2023 [facility] Work Phone: Comment on above: Expected: 09/18/2023, Expires: 4 Start: 09-18-2023 End: 11-18-2023 Thyroxine (T4) free [Mass/volume] in Serum or Plasma T4 FREE/FREE THYROX Lab Routine Acquired hypothyroidism Expected: 09/18/2023, Expires: 11/18/2023 [facility] Work Phone: Comment on above: Expected: 09/18/2023, Expires: 4 Start: 09-18-2023 End: 11-18-2023 Triiodothyronine (T3) [Mass/volume] in Serum or Plasma T3 BLD Lab Routine Acquired hypothyroidism Expected: 09/18/2023, Expires: 11/18/2023 [facility] Work Phone: Comment on above: Expected: 09/18/2023, Expires: 4 Start: 09-10-2023 ANNUAL PCP TEAM CHRONIC DISEASE VISIT ANNUAL PCP TEAM CHRONIC DISEASE VISIT [facility] Start: 09-09-2023 Colonoscopy COLONOSCOPY [facility] Start: 09-09-2023 COLORECTAL CANCER SCREENING COLORECTAL CANCER SCREENING [facility] Start: 09-09-2023 Hemoglobin A1c/Hemoglobin.total in Blood HBA1C [facility] Start: 09-09-2023 Screening for malignant neoplasm of colon [facility] Start: 09-08-2023 Hepatitis B surface antibody level LDL CHOLESTEROL [facility] Start: 07-28-2023 End: 10-27-2023 POTASSIUM BLD POTASSIUM BLD Lab Routine Hypokalemia Expected: 07/28/2023, Expires: 10/27/2023 [facility] Work Phone: Comment on above: Expected: 07/28/2023, Expires: 4 Start: 07-03-2023 Patient discharge [facility] Start: 07-01-2023 Following clinical pathway protocol [facility] Start: 07-01-2023 Assessment of risk of venous thromboembolism [facility] Start: 07-01-2023 Care regimes management [facility] Start: 07-01-2023 Fall prevention [facility] Start: 07-01-2023 Incentive spirometry [facility] Start: 07-01-2023 Inhalation therapy procedure [facility] Start: 07-01-2023 Insertion of catheter into peripheral vein [facility] Start: 07-01-2023 Introduction of urinary catheter [facility] Start: 07-01-2023 Measuring intake and output [facility] Start: 07-01-2023 Notification of physician [facility] Start: 07-01-2023 Oxygen therapy [facility] Start: 07-01-2023 Providing care according to standard [facility] Start: 07-01-2023 Provision of activity privileges [facility] Start: 07-01-2023 Referral to occupational therapist [facility] Start: 07-01-2023 Referral to service [facility] Start: 07-01-2023 [facility] Start: 07-01-2023 Admission procedure [facility] Start: 06-18-2023 End: 08-18-2023 Comprehensive metabolic 2000 panel - Serum or Plasma COMP METABOLIC PANEL Lab Routine Uncontrolled type 2 diabetes mellitus with hyperglycemia (HCC) Expected: 06/18/2023, Expires: 08/18/2023 [facility] Work Phone: Comment on above: Expected: 06/18/2023, Expires: 3 Start: 06-18-2023 End: 08-18-2023 Hemoglobin A1c in Blood HGB A1C Lab Routine Uncontrolled type 2 diabetes mellitus with hyperglycemia (HCC) Expected: 06/18/2023, Expires: 08/18/2023 [facility] Work Phone: Comment on above: Expected: 06/18/2023, Expires: 3 Start: 06-18-2023 End: 08-18-2023 Lipid 1996 panel - Serum or Plasma LIPID PANEL BASIC Lab Routine Dyslipidemia Expected: 06/18/2023, Expires: 08/18/2023 [facility] Work Phone: Comment on above: Expected: 06/18/2023, Expires: 3 Start: 06-18-2023 End: 08-18-2023 Thyrotropin [Units/volume] in Serum or Plasma TSH BLD Lab Routine Acquired hypothyroidism Expected: 06/18/2023, Expires: 08/18/2023 [facility] Work Phone: Comment on above: Expected: 06/18/2023, Expires: 3 Start: 06-18-2023 End: 08-18-2023 Thyroxine (T4) free [Mass/volume] in Serum or Plasma T4 FREE/FREE THYROX Lab Routine Acquired hypothyroidism Expected: 06/18/2023, Expires: 08/18/2023 [facility] Work Phone: Comment on above: Expected: 06/18/2023, Expires: 3 Start: 06-04-2023 Hemoglobin A1c/Hemoglobin.total in Blood HBA1C [facility] Start: 05-29-2023 Influenza vaccination [facility] Start: 03-27-2023 Influenza vaccination INFLUENZA (#1) [facility] Comment on above: Postponed from 05/29/2022 (Declined at t his time) Start: 03-12-2023 End: 05-12-2023 25-hydroxyvitamin D3 [Mass/volume] in Serum or Plasma VITAMIN D 25 HYDROXY Lab Routine Vitamin D deficiency Expected: 03/12/2023, Expires: 05/12/2023 [facility] Work Phone: Comment on above: Expected: 03/12/2023, Expires: 3 Start: 03-12-2023 End: 05-12-2023 CBC panel - Blood by Automated count CBC Lab Routine Uncontrolled type 2 diabetes mellitus with hyperglycemia (HCC) Expected: 03/12/2023, Expires: 05/12/2023 [facility] Work Phone: Comment on above: Expected: 03/12/2023, Expires: 3 Start: 03-12-2023 End: 05-12-2023 Comprehensive metabolic 2000 panel - Serum or Plasma COMP METABOLIC PANEL Lab Routine Uncontrolled type 2 diabetes mellitus with hyperglycemia (HCC) Expected: 03/12/2023, Expires: 05/12/2023 [facility] Work Phone: Comment on above: Expected: 03/12/2023, Expires: 3 Start: 03-12-2023 End: 05-12-2023 Hemoglobin A1c in Blood HGB A1C Lab Routine Uncontrolled type 2 diabetes mellitus with hyperglycemia (HCC) Expected: 03/12/2023, Expires: 05/12/2023 [facility] Work Phone: Comment on above: Expected: 03/12/2023, Expires: 3 Start: 03-12-2023 End: 05-12-2023 Lipid 1996 panel - Serum or Plasma LIPID PANEL BASIC Lab Routine Uncontrolled type 2 diabetes mellitus with hyperglycemia (HCC) Dyslipidemia Expected: 03/12/2023, Expires: 05/12/2023 [facility] Work Phone: Comment on above: Expected: 03/12/2023, Expires: 3 Start: 03-12-2023 End: 05-12-2023 Thyrotropin [Units/volume] in Serum or Plasma TSH BLD Lab Routine Acquired hypothyroidism Expected: 03/12/2023, Expires: 05/12/2023 [facility] Work Phone: Comment on above: Expected: 03/12/2023, Expires: 3 Start: 03-09-2023 Hemoglobin A1c/Hemoglobin.total in Blood HBA1C [facility] Start: 02-19-2023 ANNUAL PCP TEAM CHRONIC DISEASE VISIT ANNUAL PCP TEAM CHRONIC DISEASE VISIT [facility] Start: 01-31-2023 ANNUAL PCP TEAM CHRONIC DISEASE VISIT ANNUAL PCP TEAM CHRONIC DISEASE VISIT [facility] Start: 11-13-2022 Hepatitis B screening URINE ALBUMIN:CREATININE RATIO [facility] Start: 11-11-2022 Blood chemistry [facility] Start: 11-10-2022 Blood chemistry [facility] Start: 11-09-2022 Blood chemistry [facility] Start: 11-08-2022 Blood chemistry [facility] Start: 11-07-2022 Blood chemistry [facility] Start: 11-06-2022 Blood chemistry [facility] Start: 11-05-2022 Blood chemistry [facility] Start: 11-04-2022 Patient discharge [facility] Start: 11-03-2022 Referral to vascular surgeon [facility] Start: 11-02-2022 Assessment of risk of venous thromboembolism [facility] Start: 11-02-2022 Cardiac monitoring [facility] Start: 11-02-2022 Care regimes management [facility] Start: 11-02-2022 Catheterization of vein [facility] Start: 11-02-2022 Elevation of head of bed [facility] Start: 11-02-2022 Exercises [facility] Start: 11-02-2022 Implementation of planned interventions [facility] Start: 11-02-2022 Insertion of catheter into peripheral vein [facility] Start: 11-02-2022 Measuring intake and output [facility] Start: 11-02-2022 Notification of physician [facility] Start: 11-02-2022 Providing care according to standard [facility] Start: 11-02-2022 Provision of activity privileges [facility] Start: 11-02-2022 Referral to occupational therapist [facility] Start: 11-02-2022 Referral to service [facility] Start: 11-02-2022 Tobacco use cessation education [facility] Start: 11-02-2022 [facility] Start: 11-02-2022 Verification routine [facility] Start: 11-02-2022 Admission procedure [facility] Start: 11-02-2022 Following clinical pathway protocol [facility] Start: 10-23-2022 3 comp foot exam completed DIABETIC FOOT EXAM [facility] Start: 10-23-2022 ANNUAL PCP TEAM CHRONIC DISEASE VISIT ANNUAL PCP TEAM CHRONIC DISEASE VISIT [facility] Start: 10-23-2022 BP CONTROLLED (<130/80) BP CONTROLLED (<130/80) [facility] Start: 10-23-2022 COVID-19 VACCINE (#1) COVID-19 VACCINE (#1) [facility] Comment on above: Postponed from 1960 (Declined at t his time) Postponed from 03/03 (Declined at this time) Start: 10-23-2022 COVID-19 VACCINE (1) COVID-19 VACCINE (1) [facility] Comment on above: Postponed from 1960 (Declined at t his time) Start: 09-28-2022 ADVANCE DIRECTIVE DISCUSSION ADVANCE DIRECTIVE DISCUSSION [facility] Start: 09-28-2022 DEPRESSION ASSESSMENT DEPRESSION ASSESSMENT [facility] Start: 09-03-2022 End: 11-03-2022 25-hydroxyvitamin D3 [Mass/volume] in Serum or Plasma VITAMIN D 25 HYDROXY Lab Routine Vitamin D deficiency Expected: 09/03/2022, Expires: 11/03/2022 [facility] Work Phone: Comment on above: Expected: 09/03/2022, Expires: Start: 09-03-2022 End: 11-03-2022 CBC W Auto Differential panel - Blood CBC + DIFF Lab Routine Dyslipidemia Expected: 09/03/2022, Expires: 11/03/2022 [facility] Work Phone: Comment on above: Expected: 09/03/2022, Expires: 3 Start: 09-03-2022 End: 11-03-2022 Comprehensive metabolic 2000 panel - Serum or Plasma COMP METABOLIC PANEL Lab Routine Dyslipidemia Expected: 09/03/2022, Expires: 11/03/2022 [facility] Work Phone: Comment on above: Expected: 09/03/2022, Expires: 3 Start: 09-03-2022 End: 11-03-2022 Hemoglobin A1c in Blood HGB A1C Lab Routine Uncontrolled type 2 diabetes mellitus with hyperglycemia (HCC) Expected: 09/03/2022, Expires: 11/03/2022 [facility] Work Phone: Comment on above: Expected: 09/03/2022, Expires: 3 Start: 09-03-2022 End: 11-03-2022 Iron and Iron binding capacity panel - Serum or Plasma IRON + TIBC Lab Routine Iron deficiency anemia, unspecified iron deficiency anemia type Expected: 09/03/2022, Expires: 11/03/2022 [facility] Work Phone: Comment on above: Expected: 09/03/2022, Expires: 3 Start: 09-03-2022 End: 11-03-2022 Lipid 1996 panel - Serum or Plasma LIPID PANEL BASIC Lab Routine Dyslipidemia Expected: 09/03/2022, Expires: 11/03/2022 [facility] Work Phone: Comment on above: Expected: 09/03/2022, Expires: 3 Start: 08-22-2022 Hemoglobin A1c/Hemoglobin.total in Blood HBA1C [facility] Start: 07-10-2022 Hepatitis C antibody, confirmatory test DILATED RETINAL EXAM [facility] Start: 05-29-2022 Influenza vaccination [facility] Start: 05-22-2022 End: 07-22-2022 Hemoglobin A1c/Hemoglobin.total in Blood HGB A1C Lab Routine Uncontrolled type 2 diabetes mellitus with hyperglycemia (HCC) Expected: 05/22/2022 (Approximate), Expires: 07/22/2022 [facility] Work Phone: Comment on above: Expected: 05/22/2022 (Approximate), Expi res: 07/22/2022 Start: 05-13-2022 Hemoglobin A1c/Hemoglobin.total in Blood HBA1C [facility] Start: 04-24-2022 Adult depression screening assessment DEPRESSION SCREENING [facility] Start: 04-16-2022 Hepatitis B surface antibody level LDL CHOLESTEROL [facility] Start: 02-21-2022 End: 04-23-2022 ALDOSTERONE/DIRECT RENIN RATIO [facility] Work Phone: Comment on above: Expected: 02/21/2022, Expires: 2 Start: 02-19-2022 End: 04-21-2022 ALDOSTERONE/DIRECT RENIN RATIO [facility] Work Phone: Comment on above: Expected: 02/19/2022, Expires: 2 Start: 02-19-2022 End: 04-21-2022 Comprehensive metabolic 2000 panel - Serum or Plasma [facility] Work Phone: Comment on above: Expected: 02/19/2022, Expires: 2 Start: 02-19-2022 End: 04-21-2022 Cortisol [Mass/volume] in Serum or Plasma [facility] Work Phone: Comment on above: Expected: 02/19/2022, Expires: 2 Start: 02-19-2022 End: 04-21-2022 Urinalysis complete panel - Urine [facility] Work Phone: Comment on above: Expected: 02/19/2022, Expires: 2 Start: 12-22-2021 HbA1c (Bld) [Mass fraction] A1C test (Diabetic or Prediabetic) [facility] Work Phone: Start: 09-28-2021 ADVANCE DIRECTIVE DISCUSSION ADVANCE DIRECTIVE DISCUSSION [facility] Start: 09-28-2021 DEPRESSION ASSESSMENT DEPRESSION ASSESSMENT [facility] Start: 05-29-2021 Influenza vaccination Flu vaccine [...] 65 AND OVER WITH 5YR LOOKBACK (#1) [facility] Start: 2015 Hepatitis B Vaccine (1 of 3 - Risk 3-dose series) Hepatitis B Vaccine (1 of 3 - Risk 3-dose series) [facility] Start: 2015 RSV Vaccine (1 - 1-dose 60+ series) RSV Vaccine (1 - 1-dose 60+ series) [facility] Start: 2015 RSV Vaccine (1 - Risk 60-74 years 1-dose series) RSV Vaccine (1 - Risk 60-74 years 1-dose series) [facility] Start: 11-16-2014 Mammography [facility] Start: 11-16-2014 Screening for malignant neoplasm of breast Mammogram Screening [facility] Start: 2010 Screening for malignant neoplasm [...] of 2) SHINGRIX VACCINE (1 of 2) [facility] Start: 2000 COLOGUARD (FIT-DNA) COLOGUARD (FIT-DNA) [facility] Start: [address] COLONOGRAPHY [facility] Start: 2000 FECAL OCCULT BLOOD FECAL OCCULT BLOOD [facility] Start: 2000 Screening for malignant neoplasm of colon [facility] Start: 2000 SIGMOIDOSCOPY SIGMOIDOSCOPY [facility] Start: 1976 Screening for malignant neoplasm of cervix Cervical cancer screen [facility] Work Phone: Start: 1974 DTaP/Tdap/Td vaccine (1 - Tdap) DTaP/Tdap/Td vaccine (1 - Tdap) [facility] Work Phone: Start: 1974 Hepatitis A Vaccine (1 of 2 - Risk 2-dose series) Hepatitis A Vaccine (1 of 2 - Risk 2-dose series) [facility] Start: 1974 Pneumococcal Vaccine: 50+ (1 of 2 - PCV) Pneumococcal Vaccine: 50+ (1 of 2 - PCV) [facility] Start: 1974 Urine microalbumin profile [facility] Start: 1973 Depression Screening Depression Screening [facility] Start: 1973 Diabetic microalbuminuria test Diabetic microalbuminuria test [facility] Work Phone: Start: 1973 MMR Vaccine (1 of 2 - Risk 2-dose series) MMR Vaccine (1 of 2 - Risk 2-dose series) [facility] Start: 1971 COVID-19 Vaccine (1) COVID-19 [...] Risk (1 of 4 - Increased Risk) [facility] Start: 1961 PNEUMOCOCCAL: 65+ (1 - PCV) PNEUMOCOCCAL: 65+ (1 - PCV) [facility] Start: 03-03-1956 COVID-19 VACCINE (#1) COVID-19 VACCINE (#1) [facility] Start: 1955 Hepatitis C screening Hepatitis C screen [facility] Work Phone: ALBUMIN/CREAT RATIO RND UR ALBUMIN/CREAT RATIO RND UR Lab Routine Uncontrolled type 2 diabetes mellitus with hyperglycemia (HCC) 11/13/2023 9:31 AM EST [facility] Work Phone: Anion gap measurement [facility] Anion gap measurement [facility] Anion gap measurement [facility] Anion gap measurement [facility] Anion gap measurement [facility] Anion gap measurement [facility] Anion gap measurement [facility] Bacteria identified in Urine by Culture URINE CULTURE Microbiology Routine Vaginal itching Dysuria Ordered: 01/02/2024 [facility] Work Phone: Comment on above: Ordered: 01/02/2024 BACTERIAL VAGINOSIS NAAT BACTERI AL VAGINOSIS NAAT Lab Routine Vaginal itching Dysuria Ordered: 01/02/2024 [facility] Work Phone: Comment on above: Ordered: 01/02/2024 BUN/Creatinine ratio [facility] BUN/Creatinine ratio [facility] BUN/Creatinine ratio [facility] BUN/Creatinine ratio [facility] BUN/Creatinine ratio [facility] BUN/Creatinine ratio [facility] BUN/Creatinine ratio [facility] Calcium [Mass/volume ] in Serum or Plasma [facility] Calcium [Mass/volume ] in Serum or Plasma [facility] Calcium [Mass/volume ] in Serum or Plasma [facility] Calcium [Mass/volume ] in Serum or Plasma [facility] Calcium [Mass/volume ] in Serum or Plasma [facility] Calcium [Mass/volume ] in Serum or Plasma [facility] Calcium [Mass/volume ] in Serum or Plasma [facility] JOLANTA/TRICHOMONAS NAAT JOLANTA /TRICHOMONAS NAAT Lab Routine Vaginal itching Dysuria Ordered: 01/02/2024 [facility] Work Phone: Comment on above: Ordered: 01/02/2024 Carbon dioxide, tota l [Moles/volume] in Serum or Plasma [facility] Carbon dioxide, tota l [Moles/volume] in Serum or Plasma [facility] Carbon dioxide, tota l [Moles/volume] in Serum or Plasma [facility] Carbon dioxide, tota l [Moles/volume] in Serum or Plasma [facility] Carbon dioxide, tota l [Moles/volume] in Serum or Plasma [facility] Carbon dioxide, tota l [Moles/volume] in Serum or Plasma [facility] Carbon dioxide, tota l [Moles/volume] in Serum or Plasma [facility] Chlamydia trachomatis+Neisseria gonorrhoeae DNA [Presence] in Unspecified specimen by NELL with probe detection GONORRHEA/CHLAMYDIA NAAT Lab Routine Vaginal itching Dysuria Ordered: 01/02/2024 [facility] Work Phone: Comment on above: Ordered: 01/02/2024 Chloride [Moles/volu me] in Serum or Plasma [facility] Chloride [Moles/volu me] in Serum or Plasma [facility] Chloride [Moles/volu me] in Serum or Plasma [facility] Chloride [Moles/volu me] in Serum or Plasma [facility] Chloride [Moles/volu me] in Serum or Plasma [facility] Chloride [Moles/volu me] in Serum or Plasma [facility] Chloride [Moles/volu me] in Serum or Plasma [facility] Comprehensive metabo lic 2000 panel - Serum or Plasma COMP METABOLIC PANEL Lab Routine Essential hypertension, benign 11/13/2023 9:31 AM EST [facility] Work Phone: COVID & INFLUENZA A/ B & RSV NAAT, ROUTINE [facility] Work Phone: Creatinine [Moles/volume] in Serum or Plasma [facility] Creatinine [Moles/volume] in Serum or Plasma [facility] Creatinine [Moles/volume] in Serum or Plasma [facility] Creatinine [Moles/volume] in Serum or Plasma [facility] Creatinine [Moles/volume] in Serum or Plasma [facility] Creatinine [Moles/volume] in Serum or Plasma [facility] Creatinine [Moles/volume] in Serum or Plasma [facility] CREATININE, 24 HOUR URINE CREATININE, 24 HOUR URINE Lab Routine Abnormal results of thyroid function studies Ordered: 11/11/2024 [facility] Comment on above: Ordered: 11/11/2024 End: 02-02-2026 DBT Breast - bilateral screening LAURO SCREENING W BRAIN Radiology Routine Encounter for screening mammogram for breast cancer 1 Occurrences starting 01/03/2025 until 02/02/2026 [facility] Work Phone: Comment on above: 1 Occurrences starting 01/03/2025 until 02/02/2026 End: 02-19-2023 ECG COMPLETE ECG COMPLETE ECG Routine Uncontrolled hypertension Palpitations 1 Occurrences starting 02/19/2022 until 02/19/2023 [facility] Work Phone: Comment on above: 1 Occurrences starting 02/19/2022 until 02/19/2023 End: 02-19-2023 Echocardiography ECHO Cardiology Routine Uncontrolled hypertension Palpitations 1 Occurrences starting 02/19/2022 until 02/19/2023 [facility] Work Phone: Comment on above: 1 Occurrences starting 02/19/2022 until 02/19/2023 End: 12-21-2020 FL Greater Than 1 Hour FL Greater Than 1 Hour Imaging Routine Once for 1 Occurrences starting 12/21/2020 until 12/21/2020 [facility] Work Phone: Comment on above: Once for 1 Occurrences starting 12/22/19 21 until 12/21/2020 FL Greater Than 1 Hour FL Greate r Than 1 Hour Imaging Routine 12/21/2020 3:01 PM EDT [facility] Work Phone: Glucose [Mass/volume ] in Serum or Plasma [facility] Glucose [Mass/volume ] in Serum or Plasma [facility] Glucose [Mass/volume ] in Serum or Plasma [facility] Glucose [Mass/volume ] in Serum or Plasma [facility] Glucose [Mass/volume ] in Serum or Plasma [facility] Glucose [Mass/volume ] in Serum or Plasma [facility] Glucose [Mass/volume ] in Serum or Plasma [facility] Hemoglobin A1c/Hemoglobin.total in Blood HGB A1C Lab Routine Uncontrolled type 2 diabetes mellitus with hyperglycemia (HCC) 02/19/2022 12:38 PM EDT [facility] Work Phone: Lipid 1996 panel - S chayo or Plasma LIPID PANEL BASIC Lab Routine Essential hypertension, benign 11/13/2023 9:31 AM EST [facility] Work Phone: Measurement of renal function [facility] Measurement of renal function [facility] Measurement of renal function [facility] Measurement of renal function [facility] Measurement of renal function [facility] Measurement of renal function [facility] Measurement of renal function [facility] End: 03-04-2025 MG Breast Screening LAURO SCREENING Radiology Routine Encounter for screening mammogram for breast cancer 1 Occurrences starting 02/03/2024 until 03/04/2025 [facility] Work Phone: Comment on above: 1 Occurrences starting 02/03/2024 until 03/04/2025 Oxygen therapy [Mini [facility] Data Set] Initiate Oxygen Therapy Protocol Respiratory Care Routine Daily until discontinued starting 12/21/2020 [facility] Work Phone: Comment on above: Daily until discontinued starting 2020 Patient Education Booklet - [facility] Stroke ED - Living After Stroke Booklet - Understanding Stroke [facility] Work Phone: Patient referral [facility] Work Phone: POCT glucose [facility] Work Phone: Comment on above: 4X Daily (AC & HS) until discontinued st arting 12/21/2020 As Needed until disc ontinued starting 12/21/2020 4X Daily (AC & HS) u ntil discontinued starting 12/24/2020 Potassium [Moles/vol ume] in Serum or Plasma [facility] Potassium [Moles/vol ume] in Serum or Plasma [facility] Potassium [Moles/vol ume] in Serum or Plasma [facility] Potassium [Moles/vol ume] in Serum or Plasma [facility] Potassium [Moles/vol ume] in Serum or Plasma [facility] Potassium [Moles/vol ume] in Serum or Plasma [facility] Potassium [Moles/vol ume] in Serum or Plasma [facility] ROUTINE FLU A/B + RSV [facility] Work Phone: Comment on above: Ordered: 06/26/2023 SARS-CoV-2 (COVID-19 ) RNA [Presence] in Respiratory specimen by NELL with probe detection [facility] Work Phone: Comment on above: Ordered: 06/26/2023 End: 04-25-2023 Screening mammography bi 2-view breast inc cad LAURO SCREENING Radiology Routine Encounter for screening mammogram for breast cancer 1 Occurrences starting 03/26/2022 until 04/25/2023 [facility] Work Phone: Comment on above: 1 Occurrences starting 03/26/2022 until 04/25/2023 Sodium [Moles/volume ] in Serum or Plasma [facility] Sodium [Moles/volume ] in Serum or Plasma [facility] Sodium [Moles/volume ] in Serum or Plasma [facility] Sodium [Moles/volume ] in Serum or Plasma [facility] Sodium [Moles/volume ] in Serum or Plasma [facility] Sodium [Moles/volume ] in Serum or Plasma [facility] Sodium [Moles/volume ] in Serum or Plasma [facility] Urea nitrogen [Mass/volume] in Serum or Plasma [facility] Urea nitrogen [Mass/volume] in Serum or Plasma [facility] Urea nitrogen [Mass/volume] in Serum or Plasma [facility] Urea nitrogen [Mass/volume] in Serum or Plasma [facility] Urea nitrogen [Mass/volume] in Serum or Plasma [facility] Urea nitrogen [Mass/volume] in Serum or Plasma [facility] Urea nitrogen [Mass/volume] in Serum or Plasma [facility] URINE FREE CORTISOL BY LC-MS/MS URINE FREE CORTISOL BY LC-MS/MS Lab Routine Abnormal results of thyroid function studies Ordered: 11/11/2024 [facility] Comment on above: Ordered: 11/11/2024 End: 02-19-2023 US CAROTID ARTERIES [facility] US CAROTID ARTERIES [facility] Vascular Lab Routine Uncontrolled hypertension Palpitations 1 Occurrences starting 02/19/2022 until 02/19/2023 [facility] Work Phone: Comment on above: 1 Occurrences starting 02/19/2022 until 02/19/2023 End: 02-19-2023 US RENAL ARTERY [facility] US RENAL ARTERY [facility] Vascular Lab Routine Uncontrolled hypertension Palpitations 1 Occurrences starting 02/19/2022 until 02/19/2023 [facility] Work Phone: Comment on above: 1 Occurrences starting 02/19/2022 until 02/19/2023 End: 03-01-2023 XR ANKLE GENERAL 3V AP/LAT/OBL LEFT XR ANKLE GENERAL 3V AP/LAT/OBL LEFT Radiology Routine Closed fracture of distal end of left fibula, unspecified fracture morphology, initial encounter 1 Occurrences starting 01/30/2022 until 03/01/2023 [facility] Work Phone: Comment on above: 1 Occurrences starting 01/30/2022 until 03/01/2023 [facility] Immunizations Immunization Date Immunization Notes Care Provider Nikia moore 07-12-2018 influenza virus vacc ine, unspecified formulation Kathryn Rivero APRN.CNP Work Phone: [facility] Payers Date Payer Category Payer Self-pay [id number] 2023 Medicaid [id number] 2021 Medicare [facility] MEDICARE [facility] DUAL COMPLETE HMO SNP [id number] 2021-Present [phone] [address] [place] [address] Medicare [id number] 2021 Medicare [id number] [id number]. [id number] 2021 Medicare (Managed Care) [facility] DUAL COMPLETE HMO POS SNP [id number] 2021 Unknown [id number] 2020 Medicare [id number]. [id number] 2020 Medicaid [place] [id number] 2020-Present [phone] [address] [place] [address] Medicaid [id number] [id number]. [id number] 2020 Medicaid [id number]. 1.13.159.2. [id number] 1955 Unknown [id number] .840.1.039958.3.579.2. 627 Medicare [id number] Unknown [id number] Unknown [id number] 2.16840.1.893612.3.579.2. 462 Unknown [id number] 2.840.1.417252.3.579.2. 462 Unknown [id number] 2.16.840.1.021235.3.579.2. 462 Unknown [id number] 2.16.840.1.671397.3.579.2. 462 Unknown [id number] 2.16.840.1.285391.3.579.2. 462 Unknown [id number] 2.16.840.1.434522.3.579.2. 462 Unknown [id number] 2.16840.1.787138.3.579.2. 462 Unknown [id number] 2.840.1.147960.3.579.2. 462 Unknown [id number] 2.840.1.490645.3.579.2. 462 Unknown [id number] 2.840.1.493387.3.579.2. 462 Unknown [id number] 2.840.1.987313.3.579.2. 462 Unknown [id number] 2.840.1.752673.3.579.2. 462 Unknown [id number] 2.840.1.240431.3.579.2. 462 Unknown [id number] 2.840.1.650144.3.579.2. 462 Unknown [id number] 2.840.1.462365.3.579.2. 462 Unknown [id number] 2.840.1.448993.3.579.2. 462 Unknown [id number] 2.840.1.202915.3.579.2. 462 Unknown [id number] 2.840.1.484165.3.579.2. 462 Unknown [id number] 2.16.840.1.500825.3.579.2. 462 Unknown [id number] 2.16840.1.276709.3.579.2. 462 Unknown [id number] 2.840.1.169006.3.579.2. 462 Unknown [id number] 2.16.840.1.760365.3.579.2. 462 Unknown [id number] 2.16.840.1.129483.3.579.2. 462 Unknown [id number] 2.16.840.1.338662.3.579.2. 462 Unknown [id number] 2.16.840.1.857619.3.579.2. 462 Unknown [id number] 2.16.840.1.674193.3.579.2. 462 Unknown [id number] 2.16.840.1.868870.3.579.2. 462 Unknown [id number] 2.16.840.1.748173.3.579.2. 462 Unknown [id number] 2.16.840.1.823322.3.579.2. 462 Unknown [id number] 2.840.1.749482.3.579.2. 462 Unknown [id number] 2.16840.1.051927.3.579.2. 462 Unknown [id number] 2.16.840.1.300340.3.579.2. 462 Unknown [id number] 2.16.840.1.144266.3.579.2. 462 Unknown [id number] 2.16840.1.624505.3.579.2. 462 Unknown [id number] 2.16840.1.551198.3.579.2. 462 Unknown [id number] 2.16840.1.151293.3.579.2. 462 Unknown [id number] 2.840.1.302181.3.579.2. 462 Unknown [id number] 2.16840.1.346019.3.579.2. 462 Social History Date Type Detail Facility Start: 01-11-2018 End: 12-25-2020 Tobacco smoking status WIIS Current every day smoker [facility] Start: 11-02-2002 End: 11-02-2022 History of tobacco use Cigarette Smoker [facility] Work Phone: Start: 12-25-2020 End: 03-18-2023 Cigarettes smoked current (pack per day) - Reported [facility] Work Phone: Start: 12-25-2020 End: 05-25-2024 Tobacco use and exposure Never used [facility] Work Phone: Start: 12-25-2020 Alcohol intake Ex-drinker (finding) [facility] Work Phone: Start: 1955 Sex Assigned At Not on file [facility] Work Phone: Start: 01-13-2022 End: 02-28-2022 Exposure to SARS-CoV-2 (event) [facility]: Start: 10-23-2021 End: 02-17-2025 Alcohol intake Current drinker of alcohol (finding) [facility] Start: 10-15-2012 End: 09-10-2022 Tobacco Comment 20+ years smoking [facility] Start: 12-30-2020 End: 07-27-2023 Tobacco smoking status WIIS Unknown if ever smoked [facility] Start: 12-28-2020 None [facility] Start: 12-28-2020 Marijuana [facility] Start: 12-28-2020 With Family [facility] Start: 12-30-2020 Cigarettes [facility] Start: 1955 Sex Assigned At Female [facility] Start: 12-10-2022 End: 05-25-2024 Tobacco smoking status NHIS Ex-smoker [facility] Work Phone: Start: 11-02-2002 End: 11-02-2022 History of tobacco use Current smoker [facility] Work Phone: Start: 03-18-2023 End: 04-30-2023 Tobacco use panel [facility] Work Phone: Adult Depression Screening Assessment 0 [facility] Work Phone: Tobacco Nicotine Use: Positive smoking history. Type: Cigarettes. [facility] Tobacco smoking status [facility] Has the electric, gas, oil, or water company threatened to shut off services in your home in past 12Mo No [facility] Are you now , , , , never or living with a partner? [facility] How often to you hav e a drink containing alcohol? Never [facility] Do you feel stress - tense, restless, nervous, or anxious, or unable to sleep at night because your mind is troubled all the time - these days [OSQ] Not at all [facility] (I/We) worried whether (my/our) food would run out before (I/we) got money to buy more. Never true [facility] Start: 12-28-2024 Sex Female (finding) [facility] NEGATED: Highlighted row Not [facility] Medical Equipment Procedure Code Equipment Code Equipment Origin al Text Equipment Identifier Dates Dilation and curettage SEALANT,FLOSEAL HEMOSTATIC 5ML FDA Start: 07-26-2024 Dilation and curettage SEALANT,FLOSEAL HEMOSTATIC 5ML FDA Start: 07-26-2024 [id number], [id number], [id number], [id number], [id number], [id number], [id number], [id number], [id number] Start: 06-24-2013 End: 06-15-2024 Comment on above: Test blood sugar(s) 2 times daily. Dx: Type 2 DM - Uncontrolled E11.65 Insulin: No Test blood sugar(s) 2 times daily. Dx: 250.02. Insulin: No Test blood sugar(s) 2 times daily. Dx: E11.65. Insulin: No Test blood sugar(s) 4 times daily. Dx: E11.65. Insulin: No Test blood sugar(s) 8 times daily. Dx: E11.65. Insulin: No Goals Date Patient Goal Desired Activity /State Functional Status Date Assessment Result Facility 12-28-2024 Functional status Ambulates [facility] Work Phone: 11-25-2023 Functional Status Ambulation in Room [facility] 07-03-2023 Functional status Ambulates;Bath room Privilege [facility] Work Phone: 11-04-2022 Functional status Ambulates;Up ad sandi [facility] Work Phone: 10-25-2014 Are you deaf, or do you have serious difficulty hearing No 10/25/2014 5:51 PM Susan Manzano MA No [facility] 10-25-2014 Are you blind, or do you have serious difficulty seeing, even when wearing glasses No 10/25/2014 5:51 PM Susan Manzano MA No [facility] 10-25-2014 Do you have serious difficulty walking or climbing stairs No 10/25/2014 5:51 PM Susan Manzano MA No [facility] 10-25-2014 Do you have difficul ty dressing or bathing No 10/25/2014 5:51 PM Susan Manzano MA No [facility] 10-25-2014 Because of a physica l, mental, or emotional condition, do you have difficulty doing errands alone such as visiting a physician's office or shopping No 10/25/2014 5:51 PM Susan Manzano MA [facility] Mental Status Date Assessment Result Facility 12-28-2024 Cognitive function Level Of Cons ciousness Awake;Alert;Appropriate;Fol lows Commands [facility] Work Phone: 12-28-2024 Cognitive function Voice/Name [facility] Work Phone: 11-25-2023 Mental Status Oriented x 4 [facility] 07-03-2023 Cognitive function Voice/Name [facility] Work Phone: 11-04-2022 Cognitive function Voice/Name [facility] Work Phone: 10-25-2014 Because of a physica l, mental, or emotional condition, do you have serious difficulty concentrating, remembering, or making decisions No 10/25/2014 5:51 PM Susan Manzano MA No [facility] Clinical Notes 10-12-2018 to 04-07-2025 Telephone Encounter - Liz Richards LPN - 04/07/2025 10:06 AM EDTTelephone Encounter - Liz Richards LPN - 04/07/2025 10:06 AM EDTTelephone Encounter - Liz Richards LPN - 04/06/2025 1:46 PM EDT Note Date & Type Note Facility 04-07-2025 Telephone encounter Note Pt notified via my chart. [facility] 04-07-2025 Miscellaneous Notes Pt notified via my chart. Images from the original note were not included. This was denied last year and again this year. ote from payer: Request Reference Number: [id number]. ARMOUR THYRO TAB 120MG is denied for not meeting the prior authorization requirement(s). Details of this decision are in the notice attached below or have been faxed to you. Payer: [employer] PBM Part D [id number] Electronic appeal: Not supported Appeal instructions: Appeals are not supported through ePA. Please refer to the fax case notice for appeals information and instructions. View History Notes Time User Attachment Attachment received from payer. 04/06/2025 1:43 PM [facility], Rx Priorauth In Document Pharmacy Benefits Open Encounter [facility]Y [facility] - [employer] ([employer]) Covered: Retail, Mail Order Unknown: Specialty, Long-Term Care BIN: [id number] : 1955 Group ID: [id number] PCN: [id number] Legal sex: F Group name: [employer] Address: [address] [place] [id number] Medication Being Authorized ARMOUR THYROID 120 mg tablet Take 1 tablet PO daily in AM Dispense: 90 tablet Refills: 1 DAVE Start: 01/20/2025 Class: Normal Diagnoses: Acquired hypothyroidism This order has been released to its destination. To be filled at: [facility] [address] [place] [address] - [address] - [phone] Prior Authorization History for ARMOUR THYROID 120 mg tablet 1 year ago Denied PA completed with both doses. Electronic PA requested for both doses 120mg and 30 mg PRIOR AUTHORIZATION Medication for Prior Authorization: [employer] Insurance Company: [facility] Medicare Patient insurance ID number: [id number] Lisa Apraicio RN documented in this encounter [facility] 04-06-2025 Telephone encounter Note Images from the original note were not included. This was denied last year and again this year. ote from payer: Request Reference Number: [id number]. ARMOUR THYRO TAB 120MG is denied for not meeting the prior authorization requirement(s). Details of this decision are in the notice attached below or have been faxed to you. Payer: [employer] P[employer] Part D [id number] Electronic appeal: Not supported Appeal instructions: Appeals are not supported through ePA. Please refer to the fax case notice for appeals information and instructions. View History Notes Time User Attachment Attachment received from payer. 04/06/2025 1:43 PM [facility], Rx Priorauth In Document Pharmacy Benefits Open Encounter [facility] - [employer] ([employer]) Covered: Retail, Mail Order Unknown: Specialty, Long-Term Care BIN: [id number] : 1955 Group ID: [id number] PCN: [id number] Legal sex: F Group name: [employer] Address: [address] [place] [id number] Medication Being Authorized ARMOUR THYROID 120 mg tablet Take 1 tablet PO daily in AM Dispense: 90 tablet Refills: 1 DAVE Start: 01/20/2025 Class: Normal Diagnoses: Acquired hypothyroidism This order has been released to its destination. To be filled at: [facility] [address] [place] [id number] [address] - [phone] Prior Authorization History for ARMOUR THYROID 120 mg tablet 1 year ago Denied [facility] 04-06-2025 Telephone encounter Note PA completed with both doses. [facility] 04-06-2025 Telephone encounter Note Electronic PA requested for both doses 120mg and 30 mg [facility] 04-06-2025 Telephone encounter Note PRIOR AUTHORIZATION Medication for Prior Authorization: [employer] Insurance Company: [facility] Medicare Patient insurance ID number: [id number] Lisa Aparicio RN [facility] 04-03-2025 Telephone encounter Note The patient has been identified by name and date of : Yes Caregiver verified no other encounters exist for this prescription request: Yes Caregiver confirmed with patient/requestor that no other refills are due, in the near future, with this provider at this time: Yes The last office visit in the department: 03/22/2025 Does the patient have a future office visit with this provider/department: Yes 05/31/2025 Requested Prescriptions Pending Prescriptions Disp Refills Blood-Glucose Meter monitoring kit 1 each 0 Sig: Glucose Meter of Choice - Kit - Dx: Type 2 DM - Controlled E11.9 Check Sugars 4 times Daily blood sugar diagnostic (BLOOD GLUCOSE TEST) test strip 50 strip 11 Sig: Test blood sugar(s) 4 times daily. Dx: Type 2 DM - Controlled E11.9 Insulin: Yes Lancets 100 each 11 Sig: Test blood sugar(s) 4 times daily. Dx: Type 2 DM - Controlled E11.9 Insulin: Yes Lisa Aparicio RN April 03, 2025 9:31 AM [facility] 04-03-2025 Miscellaneous Notes The patient has been identified by name and date of : Yes Caregiver verified no other encounters exist for this prescription request: Yes Caregiver confirmed with patient/requestor that no other refills are due, in the near future, with this provider at this time: Yes The last office visit in the department: 03/22/2025 Does the patient have a future office visit with this provider/department: Yes 05/31/2025 Requested Prescriptions Pending Prescriptions Disp Refills Blood-Glucose Meter monitoring kit 1 each 0 Sig: Glucose Meter of Choice - Kit - Dx: Type 2 DM - Controlled E11.9 Check Sugars 4 times Daily blood sugar diagnostic (BLOOD GLUCOSE TEST) test strip 50 strip 11 Sig: Test blood sugar(s) 4 times daily. Dx: Type 2 DM - Controlled E11.9 Insulin: Yes Lancets 100 each 11 Sig: Test blood sugar(s) 4 times daily. Dx: Type 2 DM - Controlled E11.9 Insulin: Yes Lisa Aparicio RN April 03, 2025 9:31 AM documented in this encounter [facility] 03-24-2025 Note Addended by: LILIANA BENNETT on: 03/24/2025 09:13 AM Modules accepted: Orders [facility] 03-24-2025 Miscellaneous Notes Addended by: LILIANA BENNETT on: 03/24/2025 09:13 AM Modules accepted: Orders documented in this encounter [facility] 03-22-2025 Instructions Liliana Bennett APRN.DEREK - 03/22/2025 1:58 PM EDT Please schedule your mammogram Try cutting the carbs down to about 40g a day. Carbs and sugars with the trulicity can cause GI upset called sugar dumping Drink plenty of water Continue with at least 80-100 g of protein a day Start your new dose of trulicity on Thursday documented in this encounter [facility] 03-22-2025 Note HNO ID: [id number] Author: LILIANA BENNETT APRN.DEREK Service: ? Author Type: Nurse Practitioner Type: Progress Notes Filed: 03/22/2025 20:07 Note Text: This is a 69 year old female who presents today with: Nausea/vomiting, possible stomach bug x 1 week; DM follow up 02/[address] Farrar: . Uncontrolled type 2 diabetes mellitus with hyperglycemia (HCC) - ICD9: 250.02, ICD10: E11.65 (primary diagnosis) - Uncontrolled - Improving control - Increase dulaglutide (Trulicity) - DULAGLUTIDE 1.5 MG/0.5 ML SUBCUTANEOUS PEN INJECTOR - HEMOGLOBIN A1C - C-PEPTIDE BLD - COMPREHENSIVE METABOLIC PANEL 03/20 phone encounter: Pt phoned to report over the weekend she had vomiting one day and diarrhea 2 days (3 stools one day, 2 stools the next) with the nausea. Reports she does have hx of ulcerative colitis- and unsure if is reason for the diarrhea. Reports today she has nausea but is much improved after taking zofran. Pt reports her BS this morning was 156 and she is concerned about her BS numbers being elevated- !96 yesterday morning, and 219 on 03/16/25. Pt reports she has the trulicity 1.5 but has not started it yet- states she is concerned about taking it because back when she tried ozempic she developed pancreatitis. Scheduled f/u appt with Check Scaler. HISTORY OF PRESENT ILLNESS: Hyperglycemia: - Reports extremely high blood glucose levels -Fasting blood sugars 126-219 -Lunch /supper 201-273, some supper readings in higher 100s Hemoglobin A1C (%) Date Value 10/05/2024 7.3 11/13/2021 6.3 Hemoglobin A1C (POCT) (%) Date Value 01/06/2024 6.5 - Initiated on Trulicity 0.75 mg weekly in November; scheduled to increase to 1.5 mg on Thursday. - Previously on Ozempic, which reportedly led to pancreatitis. I am unable to confirm this in the chart, she was in the hospital with GI related symptoms. - Currently on Lantus 20 units QAM. - Adheres to a low-carb diet, consuming approximately 20 grams of carbohydrates per meal. - Breakfast: Egg wraps with ham or salami and cheese. - Lunch: 30-gram protein shake with 4 grams of carbohydrates, occasionally with an orange or apple. - Dinner: [place] or tuna with broccoli, cauliflower, or [place] sprouts. - Snacks: Granola bars (17 grams of carbohydrates) and beef sticks (7 grams of protein). - Drinks water with electrolytes, B vitamins, potassium, and sodium. - Reports chronic low sodium levels. - Exercises on a treadmill for 30 minutes daily when not ill. She obtained labs today that were ordered by PCP and endocrinology She follows with Dr Isaac in endocrinology, last seen 02/09. She's not sure she plans to continue to consult with endocrinology. Dizziness: - Experiences dizziness when blood glucose levels are elevated. - Manages dizziness by lying down or sitting until it subsides. Ulcerative Colitis: - Uses medical marijuana to manage symptoms, taking a few hits from a joint or cone as needed 08/11/24 09:47 10/07/24 10:58 11/11/24 09:46 12/14/24 11:02 02/09/25 10:03 02/17/25 15:54 03/22/25 13:46 Weight 182 lb 3.2 oz (82.6 kg) 182 lb 1.6 oz (82.6 kg) 180 lb (81.6 kg) 186 lb (84.4 kg) 187 lb 12.8 oz (85.2 kg) 188 lb (85.3 kg) 185 lb 12.8 oz (84.3 kg) HTN/HLD: 11/14/24 09:47 10/07/24 10:58 11/11/24 09:46 12/14/24 11:02 02/09/25 10:03 02/17/25 15:54 03/22/25 13:46 BP 150/67 116/60 124/74 136/70 122/78 146/80 140/70 -taking coreg, atoravastatin, spironolactone -BP is elevated, may want to consider NICOLE inhibitor at next visit for additional kidney protection with diabetes PAST MEDICAL HISTORY: PAST MEDICAL HISTORY Diagnosis Date Aortic stenosis, moderate 08/2019 Benign hypertensive heart disease Celiac disease (HCC) Diabetes mellitus without mention of complication Diabetes [...] Antibiotics) MEDICATIONS Current Outpatient Medications Medication Sig ondansetron orally disintegrating (ZOFRAN ODT) 4 mg disintegrating tablet Take 1 tablet by mouth every 8 hours as needed for nausea/vomiting. atorvastatin (LIPITOR) 40 mg tablet Take 1 tablet by mouth once daily. glimepiride (AMARYL) 2 mg tablet Take 1 tablet by mouth two times a day with meals. pantoprazole DR (PROTONIX) 40 mg tablet Take 1 tablet by mouth on (more content not included)... [facility] 03-22-2025 History of Presen t illness Narrative This is a 69 year old female who presents today with: Nausea/vomiting, possible stomach bug x 1 week; DM follow up 02/[address] Farrar: . Uncontrolled type 2 diabetes mellitus with hyperglycemia (HCC) - ICD9: 250.02, ICD10: E11.65 (primary diagnosis) - Uncontrolled - Improving control - Increase dulaglutide (Trulicity) - DULAGLUTIDE 1.5 MG/0.5 ML SUBCUTANEOUS PEN INJECTOR - HEMOGLOBIN A1C - C-PEPTIDE BLD - COMPREHENSIVE METABOLIC PANEL 03/20 phone encounter: Pt phoned to report over the weekend she had vomiting one day and diarrhea 2 days (3 stools one day, 2 stools the next) with the nausea. Reports she does have hx of ulcerative colitis- and unsure if is reason for the diarrhea. Reports today she has nausea but is much improved after taking zofran. Pt reports her BS this morning was 156 and she is concerned about her BS numbers being elevated- !96 yesterday morning, and 219 on 03/16/25. Pt reports she has the trulicity 1.5 but has not started it yet- states she is concerned about taking it because back when she tried ozempic she developed pancreatitis. Scheduled f/u appt with Check Scaler. HISTORY OF PRESENT ILLNESS: Hyperglycemia: - Reports extremely high blood glucose levels -Fasting blood sugars 126-219 -Lunch /supper 201-273, some supper readings in higher 100s Hemoglobin A1C (%) Date Value 10/05/2024 7.3 11/13/2021 6.3 Hemoglobin A1C (POCT) (%) Date Value 01/06/2024 6.5 - Initiated on Trulicity 0.75 mg weekly in November; scheduled to increase to 1.5 mg on Thursday. - Previously on Ozempic, which reportedly led to pancreatitis. I am unable to confirm this in the chart, she was in the hospital with GI related symptoms. - Currently on Lantus 20 units QAM. - Adheres to a low-carb diet, consuming approximately 20 grams of carbohydrates per meal. - Breakfast: Egg wraps with ham or salami and cheese. - Lunch: 30-gram protein shake with 4 grams of carbohydrates, occasionally with an orange or apple. - Dinner: [place] or tuna with broccoli, cauliflower, or [place] sprouts. - Snacks: Granola bars (17 grams of carbohydrates) and beef sticks (7 grams of protein). - Drinks water with electrolytes, B vitamins, potassium, and sodium. - Reports chronic low sodium levels.\ - Exercises on a treadmill for 30 minutes daily when not ill. She obtained labs today that were ordered by PCP and endocrinology She follows with Dr Isaac in endocrinology, last seen 02/09. She's not sure she plans to continue to consult with endocrinology. Dizziness: - Experiences dizziness when blood glucose levels are elevated. - Manages dizziness by lying down or sitting until it subsides. Ulcerative Colitis: - Uses medical marijuana to manage symptoms, taking a few hits from a joint or cone as needed 08/11/24 09:47 10/07/24 10:58 11/11/24 09:46 12/14/24 11:02 02/09/25 10:03 02/17/25 15:54 03/22/25 13:46 Weight 182 lb 3.2 oz (82.6 kg) 182 lb 1.6 oz (82.6 kg) 180 lb (81.6 kg) 186 lb (84.4 kg) 187 lb 12.8 oz (85.2 kg) 188 lb (85.3 kg) 185 lb 12.8 oz (84.3 kg) HTN/HLD: 08/11/24 09:47 10/07/24 10:58 11/11/24 09:46 12/14/24 11:02 02/09/25 10:03 02/17/25 15:54 03/22/25 13:46 BP 150/67 116/60 124/74 136/70 122/78 146/80 140/70 -taking coreg, atoravastatin, spironolactone -BP is elevated, may want to consider NICOLE inhibitor at next visit for additional kidney protection with diabetes PAST MEDICAL HISTORY: PAST MEDICAL HISTORY Diagnosis Date Aortic stenosis, moderate 08/2019 Benign hypertensive heart disease Celiac disease (HCC) Diabetes mellitus without mention of complication Diabetes [...] Antibiotics) MEDICATIONS Current Outpatient Medications Medication Sig ondansetron orally disintegrating (ZOFRAN ODT) 4 mg disintegrating tablet Take 1 tablet by mouth every 8 hours as needed for nausea/vomiting. atorvastatin (LIPITOR) 40 mg tablet Take 1 tablet by mouth once daily. glimepiride (AMARYL) 2 mg tablet Take 1 tablet by mouth two times a day with meals. pantoprazole DR (PROTONIX) 40 mg tablet Take 1 tablet by mouth once daily. dulaglutide (TRULICITY) 1.5 mg/0.5 mL pen injector Inject 1.5 mg subcutaneously one time a week. ARMOUR THYROID 120 mg tablet Take 1 tablet PO daily in AM ergocalciferol 50,000 unit capsule (VITAMIN D2, DRISDOL) Take 1 capsule by mouth two times a week. clopidogrel (PLAVIX) 75 mg tablet Take 1 tablet by mouth once daily. carvedilol (COREG) 6.25 mg tablet Take 1 tablet by mouth two times a day with meals. ARMOUR THYROID 30 mg tablet Take 1 tablet by mouth every Thursday, Thursday, and Thursday. In the morning. (Take this is addition to the 120 mg armor thyroid) blood sugar diagnostic (ONETOUCH VERIO TEST STRIPS) test strip Test blood sugar(s) 4 times daily. Dx: Type 2 DM - Uncontrolled Insulin: Yes Insulin [place], Disposable, (BD ULTRA-FINE MARIA T PEN NEEDLE) 32 gauge x 5/32 Use one needle for each dose. 1/day. blood sugar diagnostic (BLOOD GLUCOSE TEST) test strip Test blood sugar(s) 2 times daily. Dx: Type 2 DM - Uncontrolled Insulin: No spironolactone (ALDACTONE) 25 mg tablet Take 25 mg by mouth once daily. Once in am and once in pm blood sugar diagnostic (FREESTYLE LITE STRIPS) test strip Test blood sugar(s) 8 times daily. Dx: E11.. Insulin: No ELDERBERRY FRUIT ORAL Take 1,000 mg by mouth once daily. Blood Pressure Monitor (BLOOD PRESSURE KIT) 1 Each as directed. Dx: essential hypertension Lancets lancets Test blood sugar(s) 2 times daily. Dx: Type 2 DM - Uncontrolled Insulin: No insulin glargine (LANTUS SOLOSTAR U-100 INSULIN) 100 unit/mL (3 mL) Inject 20 Units subcutaneously every morning. No current facility-administered medications for this visit. FAMILY HISTORY Problem Relation Age of Onset Cervical Cancer Sister Diabetes Father Psychiatry Mother Hypertension Father Heart Mother Heart Father Alzheimer's Disease Mother Breast Cancer Sister Social History Tobacco Use Smoking status: Former Current packs/day: 0.00 Average packs/day: 0.5 packs/day for 20.0 years (10.0 ttl pk-yrs) Types: Cigarettes Start date: 11/02/2002 Quit date: 11/02/2022 Years since quittin.3 Smokeless tobacco: Never Substance Use Topics Alcohol use: Yes Drug use: Yes Types: Marijuana REVIEW OF SYSTEMS Constitutional: (+) fever, (+) chills Gastrointestinal: (+) diarrhea Neurological: (+) dizziness Psychiatric: (+) anxiety, (-) anhedonia, (-) depressed mood, (-) hopelessness See HPI EXAM: BP 140/70 (BP Site: Left Arm, BP Position: Sitting, BP Cuff Size: Large Adult) Pulse 78 Wt 84.3 kg (185 lb 12.8 oz) SpO2 98% BMI 36.00 kg/m PHYSICAL EXAM: General Appearance: Well appearing, alert, in no acute distress, well-hydrated, well nourished.. Neck: Supple, no adenopathy; thyroid symmetric, normal size, no bruits. Lungs: Lungs clear to auscultation. No wheezing, rhonchi, rales.. Heart: Positive findings: murmur: RRR Extremities: No deformities, edema, skin discoloration, clubbing or cyanosis. Good capillary refill. . Peripheral Pulses: Normal Diabetic foot exam completed: Normal monofilament testing Pulses palpable No wounds, callouses ASSESSMENT/PLAN ASSESSMENT/PLAN: 1. Uncontrolled type 2 diabetes mellitus with hyperglycemia (HCC) - ICD9: 250.02, ICD10: E11.65 - LANTUS SOLOSTAR U-100 INSULIN 100 UNIT/ML (3 ML) SUBCUTANEOUS PEN (just a med update that she gives it in the morning) -discuss with Dr Farrar if she things taking at night would improve where she's running high at (appt in March) -labs are pending - encourage follow up with endocrinology -start new dose of trulicity Thursday as scheduled. -reduce carbs to 40 a day, carbs turn to sugar and can lead to increased GI symptoms with GLP1 -focus on protein intake, plenty of water -continue to exercise at least 5 days per week 2. Screening for depression - ICD9: V79.0, ICD10: Z13.31 - DEPRESSION SCREENING Discussed treatment plan and patient voices understanding. Patient's questions answered appropriately. Medications and potential side effects were discussed and patient voices understanding. Medical Decision Making: Problems: Low: Stable chronic illness Risk: Moderate: Drug management Medical Decision Making Level: 3 - Low Return to the office as scheduled or as needed for worsening/no improvement. Liliana Bennett APRN.ENGINEERING TEST SPECIALIST Recording using [employer] software for draft documentation of the visit was discussed with the patient/authorized medical office representative; all questions welcomed and answered. Patient/authorized medical office representative agreed to proceed documented in this encounter [facility] 03-18-2025 Telephone encounter Note The following approved medication requests have been transmitted electronically. Requested Prescriptions Signed Prescriptions Disp Refills ondansetron orally disintegrating (ZOFRAN ODT) 4 mg disintegrating tablet 20 tablet 0 Sig: Take 1 tablet by mouth every 8 hours as needed for nausea/vomiting. Authorizing Provider: CONCHIS JACOB MD [facility] 03-18-2025 Miscellaneous Notes The following approved medication requests have been transmitted electronically. Requested Prescriptions Signed Prescriptions Disp Refills ondansetron orally disintegrating (ZOFRAN ODT) 4 mg disintegrating tablet 20 tablet 0 Sig: Take 1 tablet by mouth every 8 hours as needed for nausea/vomiting. Authorizing Provider: CONCHIS JACOB MD Patient calls back to report that she had another episode of vomiting that was all bile this time. Doesn't think she has been exposed to anyone with any GI illness. Reviewed red flag symptoms to go to ER with if vomiting continues or dehydration is expected. Patient reports she did find a bottle of Zofran and took one but it is greater than a year old. Left Zofran pended for review. Josie Starks RN Patient was told to contact office today with update on symptoms. Patient continues to have nausea today. Vomiting x 1 (yogurt) as that is all she is currently eating. No diarrhea. Patient did take insulin this morning and oral medication. FBS 196. Patient asking if Zofran could be sent to [facility]. Pended previous order of Zofran. Message from 03/17/2025: Spoke with pt she states did not take it that day at all in case . She states she has been sick for past 2 days with nausea and vomited once and diarrhea. Told her plenty of fluids and rest if no better when gets up tomorrow call in office open till noon. documented in this encounter [facility] 03-18-2025 Telephone encounter Note Patient calls back to report that she had another episode of vomiting that was all bile this time. Doesn't think she has been exposed to anyone with any GI illness. Reviewed red flag symptoms to go to ER with if vomiting continues or dehydration is expected. Patient reports she did find a bottle of Zofran and took one but it is greater than a year old. Left Zofran pended for review. Josie Starks RN [facility] 03-18-2025 Telephone encounter Note Patient was told to contact office today with update on symptoms. Patient continues to have nausea today. Vomiting x 1 (yogurt) as that is all she is currently eating. No diarrhea. Patient did take insulin this morning and oral medication. FBS 196. Patient asking if Zofran could be sent to [facility]. Pended previous order of Zofran. Message from 03/17/2025: Spoke with pt she states did not take it that day at all in case . She states she has been sick for past 2 days with nausea and vomited once and diarrhea. Told her plenty of fluids and rest if no better when gets up tomorrow call in office open till noon. [facility] 03-16-2025 Telephone encounter Note Left message to return call Sofia Rodriguez MA [facility] 03-16-2025 Miscellaneous Notes Left message to return call Sofia Rodriguez MA If patient doesn't recall if she took the insulin or not, she should not take it and wait until tomorrow. Better for her to be high than to bottom out. Thank you Pt calling in and states that she has not been feeling well and just woke up. She thinks she did not take her insulin this morning and is wondering if she should take it now. Per pt's med list, she is only on Lantus insulin and directions say to take at night. Pt states she takes her insulin in the morning and always has. States Dr. Farrar is aware and told her that was fine. Pt states she takes when she takes all of her medications. Pt states she did take her oral medications but states she doesn't remember giving herself her shot and also when she is done, she puts her needles in a water bottle. States her needle is still on the syringe. She took her blood sugar and it is 231. Pt states she isn't eating much. She is going to eat some soup. Pt is wondering if she can just hold off and take her insulin shot tomorrow morning? documented in this encounter [facility] 03-16-2025 Telephone encounter Note If patient doesn't recall if she took the insulin or not, she should not take it and wait until tomorrow. Better for her to be high than to bottom out. Thank you [facility] 03-16-2025 Telephone encounter Note Pt calling in and states that she has not been feeling well and just woke up. She thinks she did not take her insulin this morning and is wondering if she should take it now. Per pt's med list, she is only on Lantus insulin and directions say to take at night. Pt states she takes her insulin in the morning and always has. States Dr. Farrar is aware and told her that was fine. Pt states she takes when she takes all of her medications. Pt states she did take her oral medications but states she doesn't remember giving herself her shot and also when she is done, she puts her needles in a water bottle. States her needle is still on the syringe. She took her blood sugar and it is 231. Pt states she isn't eating much. She is going to eat some soup. Pt is wondering if she can just hold off and take her insulin shot tomorrow morning? [facility] 02-19-2025 Radiology Diagnostic study note [facility] [address], [place] [id number] CTA Abdomen W/WO Contrast MR#: [id number] Acct: [id number] Name: LEIDY BLANCO Rep #: [id number] : [id number] F 69 From: [place] Covarrubias MD PCP: Dr. Preet Farrar, DO Status: RE G CLI Study:CTA Abdomen W/WO Contrast Date of Exam: 02/16/25 Exam# [id number] Ordering Dr: Jozef Reyna MD PROCEDURE: CTA ABDOMEN W/WO CONTRAST 02/16/2025 REASON FOR EXAM: EVAL RENAL ARTERY STENOSIS TECHNIQUE: CTA imaging of the abdomen and pelvis with intravenous contrast. Multiplanar andmultisequence images were obtained. CONTRAST: Isovue 370 VOLUME: 100 mL Gauge IV One or more dose reduction techniques were used (e.g., Automated exposure control, adjustment of the mA and/or kV according to patient size, use of iterative reconstruction technique). RADIATION DOSE SUMMARY: CTDlvol: 20.2 mGy DLP: 729 mGycm COMPARISON: None. FINDINGS: Aorta: Mild stenosis. Iliac Arteries: Mild stenosis. Celiac: 30% stenosis. SMA: Mild stenosis. SHAWN : Mild stenosis. Right Renal: 20% stenosis. Left Renal: 20% stenosis. Subsegmental atelectatic changes in the lingula. Surgical changes of the anterior abdominal wall. Diffuse spondylosis. Prior decompression and fusion at L1-L2, unremarkable transpedicular screws. Prior cholecystectomy. Normal liver. Normal extrahepatic biliary system. Normal spleen. Normal pancreas. Normal bilateral adrenal glands. Normal size of the right kidney. There is no right renal mass. There are no right renal calculi. There is no right hydronephrosis. Normal visualized right ureter. Normal size of the left kidney. There is no left renal mass. There are no leftrenal calculi. There is no left hydronephrosis. Normal visualized left ureter. Normal visualized stomach. Normal small intestine. Normal colon. The appendix is visualized and appears normal. There is no demonstrated peritoneal fluid. Normal inferior vena cava. Normal retroperitoneum. CT/CTA Abdomen W/WO Contrast IMPRESSION: No evidence of hemodynamically significant stenosis of the renal arteries. Reading Location: [place] [address] CC: Dr. Julien Reyna MD; Dr. Preet Farrar DO ~ Water Taxi Driver: Signed [facility] 02-18-2025 Note HNO ID: [id number] Author: PREET FARRAR DO Service: ? Author Type: Physician Type: Progress Notes Filed: 02/18/2025 11:49 Note Text: Patient presents with: F/U 3 Month HPI: Leidy Blanco is a 69 year old female who presents to the office today for review of health conditions. Concerns today: She was seen by Crime Laboratory Analyst Dr. Isaac and states that she didn't like her care at her office. Would like PCP to help with management of her glucose- she is tolerating the Trulicity well without any SE- only had SE with the high doses of Ozempic at 2 mg a week - tolerated the 1 mg/week dosing well without any SE to medication. Ms. Blanco has past history of diabetes. Since our last visit she denies excessive thirst or increased frequency of urination, chest pain or dyspnea , new or unusual visual symptoms, and low sugar/hypoglycemic reactions. Depression- no. Follows a diabetic diet most of the time. She is compliant with medication(s) and is tolerating med(s) without any side effects. She reports checking her glucose on a twice a day schedule with sugars in the <200 range. Patient's last HgA1C was Hemoglobin A1C (%) Date Value 10/05/2024 7.3 05/17/2024 6.9 11/13/2021 6.3 04/16/2021 6.3 Hemoglobin A1C (POCT) (%) Date Value 01/06/2024 6.5 ) Last Ophthalmology exam was within the past 12 months Ms. Blanco reports history of hyperlipidemia. Current therapy includes atorvastatin (Lipitor) 80 mg. Denies side effects of muscle weakness or achiness. Her most recent lipid panels are reviewed. Cholesterol, Total (mg/dL) Date Value 10/05/2024 122 04/16/2021 193 HDL Cholesterol (mg/dL) Date Value 10/05/2024 65 04/16/2021 58 LDL Cholesterol, Calculated (mg/dL) Date Value 10/05/2024 36 04/16/2021 91 Triglyceride (mg/dL) Date Value 10/05/2024 105 04/16/2021 222 Ms. Blanco indicates a history of hypertension and states that she is feeling well and denies any symptoms referable to elevated blood pressure. Specifically denies headache, chest pain, palpitations, dyspnea, and peripheral edema. Patient denies any side effects of her medication(s) and is compliant with their regimen. Last 3 Encounter BP Readings: Date: BP: 02/17/2025 146/80 02/09/2025 122/78 12/14/2024 136/70 She watches her diet for sodium, low fat and low cholesterol some of the time. She does not check BP's generally. Leidy gets minimal exercise. PAST MEDICAL HISTORY Diagnosis Date Aortic stenosis, moderate 08/2019 Benign hypertensive heart disease Celiac disease (HCC) Diabetes mellitus without mention of complication Diabetes [...] date: 11/02/2002 Quit date: 11/02/2022 Years since quittin.2 Smokeless tobacco: Never Substance Use Topics Alcohol [...] Itching Sulfa (Sulfonamide * Rash Current Meds: glimepiride (AMARYL) 2 mg tablet Take 1 tablet by mouth two times a day with meals. pantoprazole DR (PROTONIX) 40 mg tablet Take 1 tablet by mouth once daily. dulaglutide (TRULICITY) 1.5 mg/0.5 mL pen injector Inject 1.5 mg subcutaneously one time a week. ARMOUR THYROID 120 mg tablet Take 1 tablet PO daily in AM ergocalciferol 50,000 unit capsule (VITAMIN D2, DRISDOL) Take 1 capsule by mouth two times a week. clopidogrel (PLAVIX) 75 mg tablet Take 1 tablet by mouth once daily. atorvastatin (LIPITOR) 80 mg tablet Take 1 tablet by mouth once daily. (Patient taking differently: Take 40 mg by mouth once daily.) carvedilol (COREG) 6.25 mg tablet Take 1 tablet by mouth two times a day with meals. losartan (COZAAR) 25 mg tablet Take 1 tablet by mouth every afternoon. ARMOUR THYROID 30 mg tablet Take 1 tablet by mouth every Thursday, Thursday, and Thursday. In the morning. (Take (more content not included)... [facility] 02-14-2025 Note HNO ID: [id number] Author: RODRIGO HOLGUIN RN Service: ? Author Type: Registered Nurse Type: Progress Notes Filed: 02/14/2025 13:17 Note Text: DIABETES CARE AND EDUCATION VISIT Location: [place] Type of visit: In person individual PATIENT'S MAIN CONCERN TODAY: Not sure if she's eating correct. Support person present for education today: none Cognitive ability: Alert and oriented Motivation to learn: Interested Learning barriers identified by educator: none Method of instruction: written, verbal, and demonstration DIABETES FINDINGS: Sister and father are type1 DM, patient's blood sugars have been becoming more variable over time. Has hx of other autoimmune disorders. Monitoring: Using Verio - reports 274 mg/dL following 160 mg/dL this morning, She's concerned that she's running so high. Meal Planning: Celiac and clean eating - 3-4 eggs per day breakfast, protein shake for lunch and low carb high protein for dinner - small snack is always protein forward - less than 20g per meal on average per report Medications: Trulicity, glimepiride and Glargine Physical Activity: 30 minutes of treadmill HANDOUTS: Healthy You: Survival Skills and Healthy You: Planning Healthy Meals LEARNING RESPONSE: Healthy eating: Demonstrated understanding/competency today or at previous visit Being active: Demonstrated understanding/competency today or at previous visit Taking medications: Demonstrated understanding/competency today or at previous visit POSSIBLE FUTURE TOPICS: 1. DIABETES CARE AND EDUCATION PLAN: Education completed and annual diabetes education follow-up visit recommended Time Spent (Minutes): 30 This visit note will be communicated to the healthcare provider via access to shared medical record. SIGNATURE: Rodrigo Holguin RN PATIENT NAME: Leidy Blanco DATE: February 14, 2025 TIME: 12:48 PM [facility] 02-09-2025 Instructions Bean Isaac MD - 02/09/2025 10:35 AM EDT Continue same dose for latus and glimepiride. Recommend being careful wit trulicity as it has same side effects as Ozempic, and hence risk of pancreatitis If stopping Trulicity, I would recommend resuming januvia 100 mg daily documented in this encounter [facility] 02-09-2025 Note HNO ID: [id number] Author: PUSHPA FALCON RN Service: ? Author Type: Registered Nurse Type: Progress Notes Filed: 02/09/2025 19:08 Note Text: [facility] 02-09-2025 History of Presen t illness Narrative Images from the original note were not included. [facility] Follow up note Referred by: PCP- Preet Farrar DO History of Present illness: Leidy Blanco is a 69 year old female here today for evaluation of Type 2 DM, she also has a PMH of HTN, HLD, CVA, Obesity class I, Hypothyroidism, Celiac disease. She reports of a recent back surgery ending up in paralysis biut now she is walking and back onto exercise -Initially diagnosed: 16 years ago. On regular blood work -Length of time on oral medications before switching to insulin: 13 years, until Ozempic, 15 years until lantus -Duration of insulin use: few months now Complications: Cardiovascular -- Yes HTN, HLD, in 2021 she had a Stroke Statin Use -- Yes, atorvastatin 80 mg daily Retinopathy -- No Last JUAN/Retina Eval: 03/2024 Nephropathy -- Yes NICOLE/ARB Use -- Yes [...] past . Diabetes Medications -Current regimen: lantus 20 units daily in the morning, glimepiride 2 mg daily Started on Trulicity by her PCP on 12/31/24, Dr. Farrar with discontinuation of Januvia. -Misses doses: None -Adverse medication effects: no -Rotating injection sites: yes -Previously Used DM Meds: Yes Metformin - GI upset Jardiance- Yeast infection She was on Ozempic 1 mg for more than 1 year, when it was increased to 2 mg she was hospitalized due to vomiting, diarrhea and was diagnosed with Gastroparesis assumed to be due to the medication . Blood sugars -Self monitoring of blood sugar via fingerstick: 4 x daily Insurance did not approve CGM. She brought glucometer -Brought blood glucose log for review: yes January 26, 2025-February 07, 2025 Avg B mg/dl, readings per day: 4 Highest 334 mg/dl, lowest 133 mg/dl 30% in range -BG log reviewed: --Fastin-230s --Prelunch: 125-250 --Predinner: 125-215 --Bedtime: 155-300s Hypoglycemia -Hypoglycemic episodes: denied any lows -Frequency and timing of hypoglycemia: n/a -Hypoglycemia awareness: n/a Concerns today: 02/09/25 She is worried about weight gain, asks me why she is not losing weight with Trulicity - Consumes snacks at bedtime to get through the night, even when blood glucose levels are elevated. - she admits to eating high carb diet during . - Expresses confusion about diabetes management and the effects of current medications - she reports to eating high protein no carb meal in the past which messed up her diabetes control. She is however continuing with low carb diet to help sugars - She denied any hyperglycemic symptoms today. - 24 hr urine cortisol done due to worsening blood sugars and was normal She has a hx of smoking that she quit but she is concerned of weight gain despite not eating much carbs . Lifestyle -Exercise: 30 mins on [place] daily -Diet: Breakfast: 3 eggs, 1 slice of gluten free bread Lunch: yogurt with 3 gms of carbs, either cheese or chicken sausage, half orange or small cup of fruit Dinner: salmon, chicken strips with 3 gms of carbs, broccoli or brussels sprouts . Blood pressure -Today BP 122/78 -Current antihypertensive therapy: carvedilol 6.25 mg BID, [...] swings Past Medical History PAST MEDICAL HISTORY Diagnosis Date Aortic stenosis, moderate 08/2019 Benign hypertensive heart disease Celiac disease (HCC) Diabetes mellitus without mention of complication Diabetes mellitus Fatty liver Grave's disease IBS (irritable bowel syndrome) Medical marijuana use has card Ulcerative colitis, unspecified Vitamin D deficiency Past Surgical History PAST SURGICAL HISTORY Procedure Laterality [...] date: 11/02/2002 Quit date: 11/02/2022 Years since quittin.2 Smokeless tobacco: Never Substance Use Topics Alcohol use: Yes Drug use: Yes Types: Marijuana Allergies ALLERGIES Allergen Reactions Asa [Salicylates] Hives, GI Upset As a child Gluten Intolerance Metformin GI Upset, Itching Prednisone Itching Sulfa (Sulfonamide * Rash Current Medications Current Outpatient Medications Medication Sig Dispense Refill ARMOUR THYROID 120 mg tablet Take 1 tablet PO daily in AM 90 tablet 1 ergocalciferol 50,000 unit capsule (VITAMIN D2, DRISDOL) Take 1 capsule by mouth two times a week. 24 capsule 3 dulaglutide (TRULICITY) 0.75 mg/0.5 mL pen injector Inject 0.75 mg subcutaneously one time a week. 6 mL 2 clopidogrel (PLAVIX) 75 mg tablet Take 1 tablet by mouth once daily. 90 tablet 1 atorvastatin (LIPITOR) 80 mg tablet Take 1 tablet by mouth once daily. (Patient taking differently: Take 40 mg by mouth once daily.) 90 tablet 1 carvedilol (COREG) 6.25 mg tablet Take 1 tablet by mouth two times a day with meals. 180 tablet 3 ARMOUR THYROID 30 mg tablet Take 1 tablet by mouth every Thursday, Thursday, and Thursday. In the morning. (Take this is addition to the 120 mg armor thyroid) 36 tablet 1 insulin glargine (LANTUS SOLOSTAR U-100 INSULIN) 100 unit/mL (3 mL) Inject 20 Units subcutaneously daily at bedtime. 27 mL 3 glimepiride (AMARYL) 2 mg tablet Take 1 tablet by mouth two times a day with meals. [address] (PROTONIX) 40 mg tablet Take 1 tablet by mouth once daily. 30 tablet 5 blood sugar diagnostic (ONETOUCH VERIO TEST STRIPS) test strip Test blood sugar(s) 4 times daily. Dx: Type 2 DM - Uncontrolled Insulin: Yes 150 Strip 11 Insulin [place], Disposable, (BD ULTRA-FINE MARIA T PEN NEEDLE) 32 gauge x 5/32 Use one needle for each dose. 1/day. 100 Each 11 blood sugar diagnostic (BLOOD GLUCOSE TEST) test strip Test blood sugar(s) 2 times daily. Dx: Type 2 DM - Uncontrolled Insulin: No 100 Strip 11 spironolactone (ALDACTONE) 25 mg tablet Take 25 mg by mouth once daily. blood sugar diagnostic (FREESTYLE LITE STRIPS) test strip Test blood sugar(s) 8 times daily. Dx: . Insulin: No 800 Strip 11 ELDERBERRY FRUIT ORAL Take 1,000 mg by mouth once daily. Blood Pressure Monitor (BLOOD PRESSURE KIT) 1 Each as directed. Dx: essential hypertension 1 Kit 0 Lancets lancets Test blood sugar(s) 2 times daily. Dx: Type 2 DM - Uncontrolled Insulin: No 100 Each 11 losartan (COZAAR) 25 mg tablet Take 1 tablet by mouth every afternoon. dexAMETHasone (DECADRON) 1 mg tablet Take the tablet at 11 pm and go for labs the next morning on fasting at 8 am 1 tablet 0 flash glucose scanning reader (FREESTYLE TARA 2 READER) 1 Device as directed. Type 2 diabetes uncontrolled, no insulin (Patient not taking: Reported on 01/06/2024) 1 Each 0 ondansetron orally disintegrating (ZOFRAN ODT) 4 mg disintegrating tablet Take 1 tablet by mouth every 8 hours as needed for nausea/vomiting. 20 tablet 1 No current facility-administered medications for this visit. Vitals: 02/09/25 1003 BP: 122/78 BP Site: Right Arm BP Position: Sitting BP Cuff Size: Regular Adult Pulse: 84 SpO2: 95% Weight: 85.2 kg (187 lb 12.8 oz) Physical Exam Unchanged from last visit GENERAL: Well nourished, obese, well hydrated, in [...] normal strength, no tremor OTHER: Acanthosis None Labs: Recent Labs 02/19/22 1238 03/25/22 1200 04/04/22 1000 04/04/22 1004 06/24/22 1003 08/26/22 1105 09/08/22 0853 11/05/22 1034 11/05/22 1504 12/02/22 0821 03/10/23 0758 05/05/23 0733 06/15/23 0831 07/30/23 1318 09/08/23 1122 11/13/23 0931 11/16/23 1156 03/21/24 1120 05/03/24 1146 05/17/24 0743 07/15/24 1045 10/05/24 0728 11/07/24 1038 11/07/24 1040 11/16/24 1109 ALT 13 -- -- -- -- -- 13 -- -- 14 21 -- 15 -- -- 18 -- 16 -- 12 -- 15 -- -- -- AST 16 -- -- -- -- -- 17 -- -- 14 23 -- 16 -- -- 19 -- 27 -- 15 -- 18 -- -- -- UCRR -- -- -- 46.8 8.8* 84.7 -- -- 16.2* -- -- 55.6 -- -- -- 18.0* -- -- 12.5* -- -- -- -- 64.2 -- UALBR -- -- -- -- -- -- -- -- <12.0 -- -- -- -- -- -- <12.0 -- -- -- -- -- -- -- -- -- TSH -- -- -- -- -- -- -- -- -- -- 0.309 -- 0.009* -- 0.119* 0.324 0.882 1.890 -- 1.960 0.218* 1.550 -- -- 1.180 TPROT 7.2 -- -- -- -- -- 7.5 -- -- 6.9 7.4 -- 6.9 -- -- 7.5 -- 7.4 -- 6.9 -- 6.8 -- -- -- ALB 4.4 4.5 4.5 -- 4.3 4.3 4.5 4.3 -- 4.2 4.5 4.1 4.1 -- -- 4.6 -- 4.3 4.5 4.3 -- 3.9 4.2 -- -- CA 10.1 10.6* 9.9 -- 9.9 9.6 10.0 9.8 -- 9.6 10.0 9.9 9.7 -- -- 10.1 -- 10.4* 10.0 9.6 -- 9.6 9.8 -- -- TBILI 0.2 -- -- -- -- -- 0.6 -- -- 0.5 0.6 -- 0.6 -- -- 0.4 -- 0.4 -- 0.6 -- 0.4 -- -- -- ALKPHOS 104 -- -- -- -- -- 99 -- -- 96 110 -- 102 -- -- 103 -- 99 -- 86 -- 92 -- -- -- GLUC 134* 128* 192* -- 145* 151* 197* 221* -- 192* 204* 156* 182* -- -- 179* -- 192* 138* 176* -- 170* 237* -- -- BUN 14 15 14 -- 15 16 17 13 -- 12 13 13 12 -- -- 12 -- 17 18 17 -- 15 18 -- -- CREAT 0.52* 0.53* 0.51* -- 0.58 0.58 0.63 0.51* -- 0.54* 0.62 0.56* 0.58 -- -- 0.53* -- 0.67 0.68 0.67 -- 0.64 0.72 -- -- NA 138 137 133* -- 138 138 134* 135* -- 137 134* 135* 137 -- -- 139 -- 135* 137 136 -- 138 134* -- -- K 4.1 4.7 4.4 -- 4.9 4.6 4.7 4.3 -- 5.0 5.0 4.6 4.5 3.9 -- 3.7 -- 4.9 4.7 4.8 -- 4.4 4.6 -- -- CHLOR 98 98 98 -- 101 101 97 102 -- 102 96* 101 99 -- -- 100 -- 98 100 100 -- 104 98 -- -- CO2 25 21* 22 -- 24 24 28 23 -- 27 27 25 26 -- -- 27 -- 21* 27 27 -- 23 25 -- -- ANION 15 18 13 -- 13 13 9 10 -- 8* 11 9 12 -- -- 12 -- 16* 10 9 -- 11 11 -- -- EGFROTH 103 102 103 -- 100 100 97 102 -- 101 98 100 99 -- -- 101 -- 95 95 95 -- 96 91 -- -- B12 -- -- -- -- -- -- -- -- -- 1,636* -- -- -- -- 1,913* -- -- -- -- -- -- -- -- -- -- Recent Labs 02/19/22 1238 09/08/22 0853 12/02/22 0821 03/10/23 0758 06/15/23 0831 09/08/23 1122 11/13/23 0931 11/16/23 1156 01/06/24 1133 05/17/24 0743 10/05/24 0728 TG -- 168* 90 91 113 -- 99 -- -- 79 105 CHOL -- 222* 95 107 100 -- 121 -- -- 115 122 HDL -- 60 53 61 55 -- 77 -- -- 71 65 VLDL -- 34* 18 18 23 -- 20 -- -- 16 21 LDL -- 128* 24 28 22 -- 24 -- -- 28 36 FASTTIME -- 9 12 12 12.5 -- 12 -- -- 12 10 TCHDL -- 3.70 1.79 1.75 1.82 -- 1.57 -- -- 1.62 1.88 LDLHDL -- 2.13 0.45 0.46 0.40 -- 0.31 -- -- 0.39 0.55 NONHDL -- 162* 42 46 45 -- 44 -- -- 44 57 HBA1C 6.5* 7.1* 7.3* 7.8* 6.7* 6.4* 6.5* 6.4* 6.5* 6.9* 7.3* HBA0 140 157 163 177 146 137 140 137 -- 151 163 B12 -- -- 1,636* -- -- 1,913* -- -- -- -- -- Hba1c 7.2% on 07/21/24, 7.3% on 10/25/2024, 7.9% on 12/15/2024 TSH 0.143 (0.358-3.74) Latest Ref Rng 11/18/2024 Hours Collected hr 24 Total Volume mL 1500 Creatinine, Urine Per Volume mg/dL 81 Creatinine, Urine Per 24H 500 - 1400 mg/d 1215 Cortisol ug/g Senior Compliance Analyst, Ur (UFRCRT) ug/g CENTRAL STERILE TECH 28.27 Free Cortisol ug/L, Urine ug/L 22.90 Free Cortisol ug/day, Urine <=45.0 ug/d 34.4 Free Cortisol UR, Interpretation See Note Creatinine 24 hr Ur 0.800 - 1.800 g/24 hr 1.125 Period hr 24 Urine Volume 24 hour mL 1,500 Latest Ref Rng 10/05/2024 11/16/2024 TSH 0.270 - 4.200 mIU/L 1.550 1.180 Free T3 2.3 - 4.1 pg/mL 2.5 Free T4 0.9 - 1.7 ng/dL 0.7 (L) Free T4 by Eq Dialysis 1.1 - 2.4 ng/dL 1.2 Legend: (L) Low Assessment and Plan 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 Farrar, with discontinuation of Januvia 100 mg daily - patient feels fine on Trulicity while c/o no effect on weight. - I discussed avoiding to snack overnight, especially when bedtime sugars are already at 170 and above - I discussed increasing the dose of latus due to worsening sugars, but last time she did not prefer increasing dose of insulin or glimepiride after I reviewed dside effect of weight gain with both the medications, also if she is eating carbs at night worrying about hypoglycemia, this would not be helpful - I also discussed the reason I never started her on any GLP-1 agonists despite weight because she had complications with Ozempic prior to seeking endocrinology appointment. But as she is not willing to increase insulin or glimepiride as above and because Dr. Farrar has started her on Trulicity, I discussed that she review her concerns about the medications with her PCP once again. I did discuss with her that every physicians experiences differ from one another and was possibly hence was started on a diff GLP-1 A, but I advised her to discuss with her. - I also discussed it might be possible that Trulicity had no effect on her weight due to being on low dose, but then reviewed that every patient might respond to the same medication differently - I have a referral to diabetes education due to her comment that she does not know much about diabetes management, despite detailed discussion by me on previous visits. - yadira gave a referral dietitian as she thinks the diet with low carb she is following is not helpful, but again she is not sure about seeing dietitian as she believes she knows extensively about diabetic diet because she has seen her father who she described as a brittle diabetic - Thyroid and cortisol labs are not concerning , and are unlikely to be associated with inability to lowe weight, while her diet and worsening sugars with use of insulin might explain this. - I also discussed referral to weight management as I am worried about her continuing Trulicity- she does not want to see providers far from [place] and hence [facility] weight management referral placed #Hypertension -Today BP 122/78 -Currently antihypertensive regimen: on coreg and spironolactone -managed by PCP #Dyslipidemia, hx of stroke - on 80 mg atorvastatin daily -managed by PCP #Obesity Class I with serious comobidity - as discussed above #Hypothyroidism: - Currently on armour thyroid 120 mg daily for 4 days and 150 mg daily on 3 days of the week. Dose change made in 05/2024 from 120 mg daily - Managed by PCP Scripts sent to pharmacy of pt choice: N/A Follow up: no indication I have confirmed and edited as necessary, the past medical, surgical, family, and social history as obtained by others. I spent a total of 58 minutes on the date of the service which included preparing to see the patient, [id number] patient care, completing clinical documentation, obtaining and/or reviewing separately obtained history, counseling and educating the patient/family/caregiver, ordering referrals, and communicating results to the patient/family/caregiver and extensive counseling. Bean Isaac MD Endocrinology Associate Staff [facility] Endocrinology and Metabolism [place] [phone] Medical Decision Making: Medical Decision Making Level: 1 - N/A documented in this encounter [facility] 02-09-2025 Note HNO ID: [id number] Author: BEAN ISAAC MD Service: ? Author Type: Physician Type: Progress Notes Filed: 02/09/2025 19:08 Note Text: [facility] Follow up note Referred by: PCP- Preet Farrar DO History of Present illness: Leidy Blanco is a 69 year old female here today for evaluation of Type 2 DM, she also has a PMH of HTN, HLD, CVA, Obesity class I, Hypothyroidism, Celiac disease. She reports of a recent back surgery ending up in paralysis biut now she is walking and back onto exercise -Initially diagnosed: 16 years ago. On regular blood work -Length of time on oral medications before switching to insulin: 13 years, until Ozempic, 15 years until lantus -Duration of insulin use: few months now Complications: Cardiovascular -- Yes HTN, HLD, in 2021 she had a Stroke Statin Use -- Yes, atorvastatin 80 mg daily Retinopathy -- No Last JUAN/Retina Eval: 03/2024 Nephropathy -- Yes NICOLE/ARB Use -- Yes [...] past . Diabetes Medications -Current regimen: lantus 20 units daily in the morning, glimepiride 2 mg daily Started on Trulicity by her PCP on 12/31/24, Dr. Farrar with discontinuation of Januvia. -Misses doses: None -Adverse medication effects: no -Rotating injection sites: yes -Previously Used DM Meds: Yes Metformin - GI upset Jardiance- Yeast infection She was on Ozempic 1 mg for more than 1 year, when it was increased to 2 mg she was hospitalized due to vomiting, diarrhea and was diagnosed with Gastroparesis assumed to be due to the medication . Blood sugars -Self monitoring of blood sugar via fingerstick: 4 x daily Insurance did not approve CGM. She brought glucometer -Brought blood glucose log for review: yes January 26, 2025-February 07, 2025 Avg B mg/dl, readings per day: 4 Highest 334 mg/dl, lowest 133 mg/dl 30% in range -BG log reviewed: --Fastin-230s --Prelunch: 125-250 --Predinner: 125-215 --Bedtime: 155-300s Hypoglycemia -Hypoglycemic episodes: denied any lows -Frequency and timing of hypoglycemia: n/a -Hypoglycemia awareness: n/a Concerns today: 02/09/25 She is worried about weight gain, asks me why she is not losing weight with Trulicity - Consumes snacks at bedtime to get through the night, even when blood glucose levels are elevated. - she admits to eating high carb diet during [place] - Expresses confusion about diabetes management and the effects of current medications - she reports to eating high protein no carb meal in the past which messed up her diabetes control. She is however continuing with low carb diet to help sugars - She denied any hyperglycemic symptoms today. - 24 hr urine cortisol done due to worsening blood sugars and was normal She has a hx of smoking that she quit but she is concerned of weight gain despite not eating much carbs . Lifestyle -Exercise: 30 mins on [place] daily -Diet: Breakfast: 3 eggs, 1 slice of gluten free bread Lunch: yogurt with 3 gms of carbs, either cheese or chicken sausage, half orange or small cup of fruit Dinner: salmon, chicken strips with 3 gms of carbs, broccoli or brussels sprouts . Blood pressure -Today BP 122/78 -Current antihypertensive therapy: carvedilol 6.25 mg BID, [...] swings Past Medical History PAST MEDICAL HISTORY Diagnosis Date Aortic stenosis, moderate 08/2019 Benign hypertensive heart disease (more content not included)... [facility] 01-03-2025 Telephone encounter Note From another encounter dated 12/29/24 Madie Bruce MA JM 01/03/25 12:25 PM Note Phoned patient as requested by provider. Discussed trulicity and the effects of surgery on her blood sugar. Patient reports understanding. Patient will continue medication as directed. Patient agrees to change her follow up appointment to earlier if she has more questions. Madie Bruce MA [facility] 01-03-2025 Miscellaneous Notes From another encounter dated 12/29/24 Madie Bruce MA 01/03/25 12:25 PM Note Phoned patient as requested by provider. Discussed trulicity and the effects of surgery on her blood sugar. Patient reports understanding. Patient will continue medication as directed. Patient agrees to change her follow up appointment to earlier if she has more questions. Madie Bruce MA See other phone note from 12/29. Dr. Farrar has given direction for pt to stop Januvia since pt started Trulicity last . Pt was told to stop Januvia today (Tuesday 01/02) Called pt to follow up on what provider had done for pt. Pt states she hadn't heard from anyone. Pt states her sugars on Thursday were: 212 292 294 211 224 Thursday: 7 am 193 1 pm 263 5 pm 200 845 pm 182 Today Thursday: 7 am 167 1130 am 260 130 pm 213 Pt continuing with the same meds as listed in previous note. Pt takes her Lantus in the morning, not the evening which she states she thought Dr. Farrar told her was okay. States if not, someone needs to tell her differently. Also pt wondering how long before the Trulicity takes effect since it is only a once a week dose. Pt aware that if she does not hear back from Dr. Isaac's office tomorrow, nurse will follow up with Dr. Farrar or 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 provider for Dr. Isaac. Pt calling in due to elevated BS. Pt states she had a vaginal hysterectomy this past Wednesday 12/[address] Hall. Pt states while she was in the hospital, they were giving her injections of short acting insulin for her blood sugars that were running in the high 180s. Pt states over the past couple months, her sugars are averaging between 160s-240s. Dr. Farrar recently added Trulicity and pt took first dose of 0.[address] Farrar out of the office and per protocol, to notify specialist. Note will be sent to Dr. Isaac. Pt states she has always taken her Lantus insulin during the day, she has never taken it at bedtime. Please call pt back after provider review with instructions. Reason for Disposition [1] Blood glucose > 300 mg/dL (16.7 mmol/L) AND [2] two or more times in a row Answer Assessment - Initial Assessment Questions 1. BLOOD GLUCOSE: 12 noon 360 and at 1220 349. Pt states it has been running in the 160's-240's for several weeks. 2. ONSET: see above 3. USUAL RANGE: see above 4. KETONES: n/a- does not check 5. TYPE 1 or 2: Type 2 6. INSULIN: Yes pt takes 20 units of Lantus insulin-per sig, pt to take at bedtime. Pt states she has always taken it during the day. Took it this morning between 8-830 am. 7. DIABETES PILLS: yes pt takes Glimepiride 2 mg twice a day with last dose between 8-830 am. Pt also just took first dose of Trulicity 0.75 mg this morning between 8-830 am 8. OTHER SYMPTOMS: Pt denies fever, frequent urination, difficulty breathing, dizziness, weakness, or vomiting. Pt does c/o headache and slight nausea. 9. : hysterectomy Protocols used: Diabetes - High Blood [id number] documented in this encounter [facility] 01-03-2025 Note Patient Outreach (FA MPWS) LEIDY BLANCO ([id number]) 1955 F Date Time Provider Department 01/03/25 PREET FARRAR During your visit today, we recorded the following information about you: Allergies As of Date: 01/03/2025 Noted Allergy Reaction ASA (SALICYLATES) 01/05/2006 4 - Hives 8 - GI Upset Comments: As a child GLUTEN 10/17/2016 5 - Intolerance METFORMIN 8 - GI Upset 9 - Itching PREDNISONE 10/02/2012 9 - Itching SULFA (SULFONAMIDE ANTIBIOTICS) 12/29/2005 2 - Rash Date Reviewed: 11/11/2024 Reviewed by: Madie Bruce MA - Fully Assessed Visit Diagnosis:Encounter for screening mammogram for breast cancer [Z12.31] Order(s):[facility] SCREENING W BRAIN [[id number]] Order #: [id number] FUTURE Prescriptions as of 02/03/2025 - ARMOUR THYROID 120 mg tablet Take 1 tablet PO daily in AM - ergocalciferol 50,000 unit capsule (VITAMIN D2, DRISDOL) Take 1 capsule by mouth two times a week. - dulaglutide (TRULICITY) 0.75 mg/0.5 mL pen injector Inject 0.75 mg subcutaneously one time a week. - clopidogrel (PLAVIX) 75 mg tablet Take 1 tablet by mouth once daily. - atorvastatin (LIPITOR) 80 mg tablet Take 1 tablet by mouth once daily. - carvedilol (COREG) 6.25 mg tablet Take 1 tablet by mouth two times a day with meals. - losartan (COZAAR) 25 mg tablet Take 1 tablet by mouth every afternoon. - ARMOUR THYROID 30 mg tablet Take 1 tablet by mouth every Thursday, Thursday, and Thursday. In the morning. (Take this is addition to the 120 mg armor thyroid) - insulin glargine (LANTUS SOLOSTAR U-100 INSULIN) 100 unit/mL (3 mL) Inject 20 Units subcutaneously daily at bedtime. - glimepiride (AMARYL) 2 mg tablet Take 1 tablet by mouth two times a day with meals. - pantoprazole DR (PROTONIX) 40 mg tablet Take 1 tablet by mouth once daily. - blood sugar diagnostic (Tela SolutionsUCH VERIO TEST STRIPS) test strip Test blood sugar(s) 4 times daily. Dx: Type 2 DM - Uncontrolled Insulin: Yes - dexAMETHasone (DECADRON) 1 mg tablet Take the tablet at 11 pm and go for labs the next morning on fasting at 8 am - Insulin [place], Disposable, (BD ULTRA-FINE MARIA T PEN NEEDLE) 32 gauge x 5/32 Use one needle for each dose. 1/day. - blood sugar diagnostic (BLOOD GLUCOSE TEST) test strip Test blood sugar(s) 2 times daily. Dx: Type 2 DM - Uncontrolled Insulin: No - spironolactone (ALDACTONE) 25 mg [...] 2 DM - Uncontrolled .65 Insulin: No Problem List As Of Date 01/03/2025 Noted Resolved Diabetes mellitus type 2, controlled, [...] BMI 30-34.9 [E66.811] 03/23/2024 Encounter Status:Closed by TEJAS BALLESTEROS on 02/03/25 [facility] 01-02-2025 Telephone encounter Note Routing note to Dr. Isaac for review as well-please see triage encounter from 12/30/24. [facility] 01-02-2025 Miscellaneous Notes Routing note to Dr. Isaac for review as well-please see triage encounter from 12/30/24. Pt. informed. Please have her hold the Januvia when starting the Trulicity Preet Farrar DO To my knowledge and from reviewing Pt's chart, this encounter/triage note has not been handled thus far. I am unable to see any documentation that Pt's concerns have been addressed. Dr. Isaac is out of the office today, 01/02/2025. Her expected return is 01/03/2025. Pushpa Falcon RN January 02, 2025 1:29 PM Please see triage note as pt called in on Thursday the 4th with elevated blood sugars. Dr. Farrar was out of the office last week. Pt has been seeing Dr. Isaac for her diabetes with last visit 11/11/24 and next visit 02/09/25. Triage note was sent to Dr. Isaac on Thursday. Dr. Isaac messaged this nurse and stated the call had been handled through [employer] chat. No notes in triage with what was done. Will follow up with Dr. Isaac and her office. Will also forward this msg to her as well. Patient calling to clarify if she should stop her Januvia medication when starting her Trulicity? Per 12/14 OV, pt was originally going to start Victoza and was to stop her Januvia when she began the Victoza. The Victoza was not covered for her, so provider ordered her Trulicity instead. Pt plans to start the Trulicity soon, but wanted to clarify that she should NOT take the Januvia when starting her Trulicity. Please call patient with reply. Chelo Prasad RN documented in this encounter [facility] 01-02-2025 Telephone encounter Note Pt. informed. [facility] 01-02-2025 Telephone encounter Note Please have her hold the Januvia when starting the Trulicity Preet Farrar DO [facility] 01-02-2025 Telephone encounter Note See other phone note from 12/29. Dr. Farrar has given direction for pt to stop Januvia since pt started Trulicity last . Pt was told to stop Januvia today (Tuesday 01/02) Called pt to follow up on what provider had done for pt. Pt states she hadn't heard from anyone. Pt states her sugars on Thursday were: 212 292 294 211 224 Thursday: 7 am 193 1 pm 263 5 pm 200 845 pm 182 Today Thursday: 7 am 167 1130 am 260 130 pm 213 Pt continuing with the same meds as listed in previous note. Pt takes her Lantus in the morning, not the evening which she states she thought Dr. Farrar told her was okay. States if not, someone needs to tell her differently. Also pt wondering how long before the Trulicity takes effect since it is only a once a week dose. Pt aware that if she does not hear back from Dr. Isaac's office tomorrow, nurse will follow up with Dr. Farrar or 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 provider for Dr. Isaac. [facility] 01-02-2025 Telephone encounter Note To my knowledge and from reviewing Pt's chart, this encounter/triage note has not been handled thus far. I am unable to see any documentation that Pt's concerns have been addressed. Dr. Isaac is out of the office today, 01/02/2025. Her expected return is 01/03/2025. Pushpa Falcon RN January 02, 2025 1:29 PM [facility] 01-02-2025 Telephone encounter Note Please see triage note as pt called in on Thursday the with elevated blood sugars. Dr. Farrar was out of the office last week. Pt has been seeing Dr. Isaac for her diabetes with last visit 11/11/24 and next visit 02/09/25. Triage note was sent to Dr. Isaac on Thursday. Dr. Isaac messaged this nurse and stated the call had been handled through [employer] chat. No notes in triage with what was done. Will follow up with Dr. Isaac and her office. Will also forward this msg to her as well. [facility] 12-30-2024 Telephone encounter Note Pt calling in due to elevated BS. Pt states she had a vaginal hysterectomy this past Wednesday 12/[address] Hall. Pt states while she was in the hospital, they were giving her injections of short acting insulin for her blood sugars that were running in the high 180s. Pt states over the past couple months, her sugars are averaging between 160s-240s. Dr. Farrar recently added Trulicity and pt took first dose of 0.[address] Farrar out of the office and per protocol, to notify specialist. Note will be sent to Dr. Isaac. Pt states she has always taken her Lantus insulin during the day, she has never taken it at bedtime. Please call pt back after provider review with instructions. Reason for Disposition [1] Blood glucose > 300 mg/dL (16.7 mmol/L) AND [2] two or more times in a row Answer Assessment - Initial Assessment Questions 1. BLOOD GLUCOSE: 12 noon 360 and at 1220 349. Pt states it has been running in the 160's-240's for several weeks. 2. ONSET: see above 3. USUAL RANGE: see above 4. KETONES: n/a- does not check 5. TYPE 1 or 2: Type 2 6. INSULIN: Yes pt takes 20 units of Lantus insulin-per sig, pt to take at bedtime. Pt states she has always taken it during the day. Took it this morning between 8-830 am. 7. DIABETES PILLS: yes pt takes Glimepiride 2 mg twice a day with last dose between 8-830 am. Pt also just took first dose of Trulicity 0.75 mg this morning between 8-830 am 8. OTHER SYMPTOMS: Pt denies fever, frequent urination, difficulty breathing, dizziness, weakness, or vomiting. Pt does c/o headache and slight nausea. 9. : hysterectomy Protocols used: Diabetes - High Blood Ewlkt-UYNDB-TF [facility] 12-29-2024 Telephone encounter Note Patient calling to clarify if she should stop her Januvia medication when starting her Trulicity? Per 12/14 OV, pt was originally going to start Victoza and was to stop her Januvia when she began the Victoza. The Victoza was not covered for her, so provider ordered her Trulicity instead. Pt plans to start the Trulicity soon, but wanted to clarify that she should NOT take the Januvia when starting her Trulicity. Please call patient with reply. Chelo Prasad RN [facility] 12-28-2024 Progress note Note Date/Time December 28, 2024 8:32am [facility] Medical Records Department [address] [place] [address] Progress Note - OBGYN 12/28/2429 MR#: [id number] Acct: [id number] Name: LEIDY BLANCO Rep #:[id number] : 1955 69 From: Anushka centeno MD PCP: Dr. Preet Farrar, DO Status:AD M IN Location: [facility] [place] [facility] Subjective Subjective Patient doing well without complaints overall. Tolerating clears, bps improved. needs to have cath out, ready to try. Denies chest pain, shortness of breath, calf pain/swelling, fevers, chills, lightheadedness. Objective Data Objective Data Vital Signs: Vital Signs Temp Pulse Resp BP Pulse Ox O2 Del Method O2 Flow Rate 98.5 F 72 14 147/66 H 93 Room Air 2 12/28/24 08:00 12/28/24 08:11 12/28/24 08:11 12/28/24 08:00 12/28/24 08:11 12/28/24 08:11 12/27/24 20:10 FiO2 99 12/27/24 20:10 Oxygen Flow Rate (L/min) 2 Oxygen Delivery Method Room Air Weight: 186 lb 11.704 oz Body Mass Index (BMI) 36.4 Intake & Output: Intake and Output for Last 24 Hours 12/26/24 12/27/24 12/28/24 23:59 23:59 23:59 Intake Total 1364 / 1364 371.5 / 371.5 Output Total 2160 / 2160 800 / 800 Balance -796 / -796 -428.5 / -428.5 Lab / Micro Data 12/28/24 06:14 12/28/24 06:14 Labs: Laboratory Results - last 24 hr 12/27/24 08:15: POC Glucose 243 H 12/27/24 10:50: POC Glucose 305 H 12/27/24 13:00: WBC 15.7 H, RBC 4.50, Hgb 13.4, Hct 39.2, MCV 87.1, MCH 29.8, MCHC 34.2, RDW Std Deviation 41.4, RDW Coeff of Neida 13.2, Plt Count 332, MPV 9.6 12/27/24 16:37: POC Glucose 299 H 12/27/24 20:19: POC Glucose 231 H 12/28/24 06:14: WBC 16.8 H, RBC 4.46, Hgb 13.4, Hct 38.7, MCV 86.8, MCH 30.0, MCHC 34.6, RDW Std Deviation 41.9, RDW Coeff of Neida 13.2, Plt Count 332, MPV 9.8, Sodium 132 L, Potassium 3.8, Chloride 95 L, Carbon Dioxide 24.0, Anion Gap 13, BUN 16, Creatinine 0.62 L, Estim Creat Clear Calc 64.10, Est GFR (MDRD) Non-Af 97, BUN/Creatinine Ratio 25.4 H, Glucose 170 H, Calcium 9.0 12/28/24 06:24: POC Glucose 183 H ROS Constitutional Constitutional: Reports systems reviewed and no addt'l complaints, except as documented Cardiovascular Cardiovascular: Reports systems reviewed and no addt'l complaints, except as documented Respiratory/Chest Respiratory/Chest: Reports systems reviewed and no addt'l complaints, except as documented Gastrointestinal Gastrointestinal: Reports systems reviewed and no addt'l complaints, except as documented Physical Exam Const alert, oriented x3 and no apparent distress HEENT Head and Scalp: atraumatic Resp normal respiratory effort GI soft to palpation and non-tender Assessment & Plan (1) History of total vaginal hysterectomy (TVH): COMMENT: SM endometrial hyperplasia (2) Endometrial hyperplasia without atypia: COMMENT: not a hormonal candidate, plan tvhbs, needs cardio and pcp clearance (3) History of CVA (cerebrovascular accident): (4) Dyslipidemia: (5) Renal artery stenosis: (6) Carotid artery disease: (7) Atherosclerotic vascular disease: PLAN: Plan patient is s/p tvh POD 1 1. routine ERAS protocol postop care- increase ambulation, dc doll, advance diet and continue oral control of pain. lovenox and scds for dvt prophylaxis, patient stable for discharge to home once meeting all criteria. appreciate medicine following for bp and BS control. 12/28/24 0832 <Electronically signed by Anushka Hall MD> Cosigner Signature (if applicable): CC: ~ Signed [facility] Work Phone: 1(330) 890-494804-02-2025 Progress note [facility] Medical Records Department [address] [place] [address] Progress Note - OBGYN 12/28/24828 MR#: [id number] Acct: [id number] Name: LEIDY BLANCO Rep #:[id number] : 1955 69 From: Anushka centeno MD PCP: Dr. Preet Farrar, DO Status:AD M IN [facility] Subjective Subjective Patient doing well without complaints overall. Tolerating clears, bps improved. needs to have cath out, ready to try. Denies chest pain, shortness of breath, calf pain/swelling, fevers, chills, lightheadedness. Objective Data Objective Data Vital Signs: Vital Signs Temp Pulse Resp BP Pulse Ox O2 Del Method O2 Flow Rate 98.5 F 72 14 147/66 H 93 Room Air 2 12/28/24 08:00 12/28/24 08:11 12/28/24 08:11 12/28/24 08:00 12/28/24 08:11 12/28/24 08:11 12/27/24 20:10 FiO2 99 12/27/24 20:10 Oxygen Flow Rate (L/min) 2 Oxygen Delivery Method Room Air Weight: 186 lb 11.704 oz Body Mass Index (BMI) 36.4 Intake & Output: Intake and Output for Last 24 Hours 12/26/24 12/27/24 12/28/24 23:59 23:59 23:59 Intake Total 1364 / 1364 371.5 / 371.5 Output Total 2160 / 2160 800 / 800 Balance -796 / -796 -428.5 / -428.5 Lab / Micro Data 12/28/24 06:14 12/28/24 06:14 Labs: Laboratory Results - last 24 hr 12/27/24 08:15: POC Glucose 243 H 12/27/24 10:50: POC Glucose 305 H 12/27/24 13:00: WBC 15.7 H, RBC 4.50, Hgb 13.4, Hct 39.2, MCV 87.1, MCH 29.8, MCHC 34.2, RDW Std Deviation 41.4, RDW Coeff of Neida 13.2, Plt Count 332, MPV 9.6 12/27/24 16:37: POC Glucose 299 H 12/27/24 20:19: POC Glucose 231 H 12/28/24 06:14: WBC 16.8 H, RBC 4.46, Hgb 13.4, Hct 38.7, MCV 86.8, MCH 30.0, MCHC 34.6, RDW Std Deviation 41.9, RDW Coeff of Neida 13.2, Plt Count 332, MPV 9.8, Sodium 132 L, Potassium 3.8, Chloride 95 L, Carbon Dioxide 24.0, Anion Gap 13, BUN 16, Creatinine 0.62 L, Estim Creat Clear Calc 64.10, EstGFR (MDRD) Non- Af 97, BUN/Creatinine Ratio 25.4 H, Glucose 170 H, Calcium 9.0 12/28/24 06:24: POC Glucose 183 H ROS Constitutional Constitutional: Reports systems reviewed and no addt'l complaints, except as documented Cardiovascular Cardiovascular: Reports systems reviewed and no addt'l complaints, except as documented Respiratory/Chest Respiratory/Chest: Reports systems reviewed and no addt'l complaints, except as documented Gastrointestinal Gastrointestinal: Reports systems reviewed and no addt'l complaints, except as documented Physical Exam Const alert, oriented x3 and no apparent distress HEENT Head and Scalp: atraumatic Resp normal respiratory effort GI soft to palpation and non-tender Assessment & Plan (1) History of total vaginal hysterectomy (TVH): COMMENT: SM endometrial hyperplasia (2) Endometrial hyperplasia without atypia: COMMENT: not a hormonal candidate, plan tvhbs, needs cardio and pcp clearance (3) History of CVA (cerebrovascular accident): (4) Dyslipidemia: (5) Renal artery stenosis: (6) Carotid artery disease: (7) Atherosclerotic vascular disease: PLAN: Plan patient is s/p tvh POD 1 1. routine ERAS protocol postop care- increase ambulation, dc doll, advance diet and continue oralcontrol of pain. lovenox and scds for dvt prophylaxis, patient stable for discharge to home once meeting all criteria. appreciate medicine following for bp and BS control. 12/28/24 0832 Cosigner Signature (if applicable): CC: ~ Signed [facility]04-01-2025 Progress note Author Carmen Dallas [facility] Note Date/Time December 27, 2024 6:57 pm [facility] Medical Records Department [address] [place] [address] Progress Note 12/27/24 1729 MR#: [id number] Acct: [id number] Name: LEIDY BLANCO Rep #:[id number] : 1955 69 From: Carmen Dallas MD PCP: Dr. Preet Farrar, DO Status:AD M IN Location: [facility] NV946-1 Subjective Subjective Patient is a 69-year-old female with a past medical history as outlined was admitted to the service of gynecology for total vaginal hysterectomy on 12/27/2024. Hospitalist service was consulted afterwards for medical management on account of labile blood pressure. Patient does have a history of high blood pressure. She says she takes spironolactone and carvedilol. She do the carvedilol this morning but had not yet taken the spironolactone as she usually took that in the evening. She denied any headache, blurred vision, chest pain, shortness of breath or abdominal pain. Review of symptoms otherwise negative. Vitals at time of review were blood pressure 151/73, pulse rate of 94 and respiratory rate of 18. Temperature was 97.4 Fahrenheit. She was saturating at95% on 2 L of oxygen. CBC showed WBC of 15.7 hemoglobin of 18.4 and platelets of332. Objective Data Objective Data Vital Signs: Vital Signs Temp Pulse Resp BP Pulse Ox O2 Del Method O2 Flow Rate 98.0 F 96 16 178/74 H 98 Nasal Cannula 2 12/27/24 16:40 12/27/24 16:40 12/27/24 16:40 12/27/24 16:40 12/27/24 16:40 12/27/24 16:40 12/27/24 16:40 Oxygen Flow Rate (L/min) 2 Oxygen Delivery Method Nasal Cannula Weight: 186 lb 11.704 oz Body Mass Index (BMI) 36.4 Intake & Output: Intake and Output for Last 24 Hours 12/25/24 12/26/24 12/27/24 23:59 23:59 23:59 Intake Total 1124 / 1124 Output Total 1760 / 1760 Balance -636 / -636 Lab / Micro Data 12/27/24 13:00 12/15/24 12:37 Labs: Laboratory Results - last 24 hr 12/27/24 07:00: POC Glucose 222 H 12/27/24 08:15: POC Glucose 243 H 12/27/24 10:50: POC Glucose 305 H 12/27/24 13:00: WBC 15.7 H, RBC 4.50, Hgb 13.4, Hct 39.2, MCV 87.1, MCH 29.8, MCHC 34.2, RDW Std Deviation 41.4, RDW Coeff of Neida 13.2, Plt Count 332, MPV 9.6 12/27/24 16:37: POC Glucose 299 H Physical Exam Const alert, oriented x3, no apparent distress and well nourished General Appearance: cooperative and well developed HEENT normocephalic, head/scalp atraumatic, TM's normal bilaterally, moist oral mucousmembranes and oropharynx normal Eyes PERRL and EOMs intact bilaterally Neck no lymphadenopathy and supple Lymph Lymphatic: no lymphadenopathy noted and no lymphedema noted Resp normal respiratory effort, normal air movement and clear to auscultation bilaterally Cardio regular rate, regular rhythm, S1 normal heart sound, S2 normal heart sound and no murmurs GI normal to inspection, nondistended, normoactive bowel sounds, soft to palpation,non-tender and non-distended Extremity normal capillary refill, no clubbing, cyanosis or edema and no calf tenderness General Extremity: no tenderness to palpation of joints or extremities Skin General Skin Exam: no breakdown Neuro CN's II-XII intact bilaterally, no focal motor deficits and no sensory deficits noted Motor Exam: strength 5/5 throughout and general weakness Psych thought process normal, cooperative and affect normal Appearance: appropriate Assessment & Plan Assessment/Plan (1) History of total vaginal hysterectomy (TVH): (2) Hypertension: PLAN: Plan #Endometrial hyperplasia * S/p total vaginal hysterectomy on 12/27/2024. * Management as per primary team gynecology. * #Hypertension * Blood pressure has been labile with her blood pressure being up in the 170s initially during review but came down to the 150s systolic. * She does have a history of high blood pressure and also has renal artery stenosis which could be contributing to the poorly controlled blood pressure. * She takes carvedilol which she took this morning. She is also on spironolactone which she did not take this morning she says usually took it in the evenings. * Resume carvedilol and spironolactone. * IV hydralazine as needed #History of CVA * Had a subacute cortical gyral ischemic infarction in October 2022. * On Plavix and high intensity statin. Per gynecology to resume Plavix tomorrow. Not on aspirin due to allergy to aspirin. * #Type 2 diabetes mellitus: * On Glimepiride. Also on Lantus 20 units daily. Insulin sliding scale. * Accu-Cheks ACHS. * Also takes sitagliptin. * #Hypothyroidism: On [place] Thyroid. DVT prophylaxis: As per primary service. Thank you for the courtesy of the consult. Hospitalist service will continue tofollow with you. Charges/Coding Visit Charges Inpatient E&M: 95927 Subs Hosp L2 12/27/24 1857 <Electronically signed by Carmen Dallas MD> Carmen Dallas MD Cosigner Signature (if applicable): CC: ~ Signed [facility] Work Phone: 1(839) 228-450404-01-2025 Progress note [facility] Medical Records Department [address] [place] [address] Progress Note 12/27/24 1729 MR#: [id number] Acct: [id number] Name: LEIDY BLANCO Rep #:[id number] : 1955 69 From: Carmen Dallas MD PCP: Dr. Preet Farrar, DO Status:AD M IN Location: [facility] BB325-1 Subjective Subjective Patient is a 69-year-old female with a past medical history as outlined was admitted to the serviceof gynecology for total vaginal hysterectomy on 12/27/2024. Hospitalist service was consulted afterwards for medical management on account of labile blood pressure. Patient does have a history of high blood pressure. She says she takes spironolactone and carvedilol. She do the carvedilol this morningbut had not yet taken the spironolactone as she usually took that in the evening. She denied any headache, blurred vision, chest pain, shortness of breath or abdominal pain. Review of symptoms otherwise negative. Vitals at time of review were blood pressure 151/73, pulse rate of 94 and respiratory rate of 18. Temperature was 97.4 Fahrenheit. She was saturating at95% on 2 L of oxygen. CBC showed WBC of 15.7 hemoglobin of 18.4 and platelets of332. Objective Data Objective Data Vital Signs: Vital Signs Temp Pulse Resp BP Pulse Ox O2 Del Method O2 Flow Rate 98.0 F 96 16 178/74 H 98 Nasal Cannula 2 12/27/24 16:40 12/27/24 16:40 12/27/24 16:40 12/27/24 16:40 12/27/24 16:40 12/27/24 16:40 12/27/24 16:40 Oxygen Flow Rate (L/min) 2 Oxygen Delivery Method Nasal Cannula Weight: 186 lb 11.704 oz Body Mass Index (BMI) 36.4 Intake & Output: Intake and Output for Last 24 Hours 12/25/24 12/26/24 12/27/24 23:59 23:59 23:59 Intake Total 1124 / 1124 Output Total 1760 / 1760 Balance -636 / -636 Lab / Micro Data 12/27/24 13:00 12/15/24 12:37 Labs: Laboratory Results - last 24 hr 12/27/24 07:00: POC Glucose 222 H 12/27/24 08:15: POC Glucose 243 H 12/27/24 10:50: POC Glucose 305 H 12/27/24 13:00: WBC 15.7 H, RBC 4.50, Hgb 13.4, Hct 39.2, MCV 87.1, MCH 29.8, MCHC 34.2, RDW Std Deviation 41.4, RDW Coeff of Neida 13.2, Plt Count 332, MPV 9.6 12/27/24 16:37: POC Glucose 299 H Physical Exam Const alert, oriented x3, no apparent distress and well nourished General Appearance: cooperative and well developed HEENT normocephalic, head/scalp atraumatic, TM's normal bilaterally, moist oral mucousmembranes and oropharynx normal Eyes PERRL and EOMs intact bilaterally Neck no lymphadenopathy and supple Lymph Lymphatic: no lymphadenopathy noted and no lymphedema noted Resp normal respiratory effort, normal air movement and clear to auscultation bilaterally Cardio regular rate, regular rhythm, S1 normal heart sound, S2 normal heart sound and no murmurs GI normal to inspection, nondistended, normoactive bowel sounds, soft to palpation,non-tender and non-distended Extremity normal capillary refill, no clubbing, cyanosis or edema and no calf tenderness General Extremity: no tenderness to palpation of joints or extremities Skin General Skin Exam: no breakdown Neuro CN's II-XII intact bilaterally, no focal motor deficits and no sensory deficits noted Motor Exam: strength 5/5 throughout and general weakness Psych thought process normal, cooperative and affect normal Appearance: appropriate Assessment & Plan Assessment/Plan (1) History of total vaginal hysterectomy (TVH): (2) Hypertension: PLAN: Plan #Endometrial hyperplasia * S/p total vaginal hysterectomy on 12/27/2024. * Management as per primary team gynecology. * #Hypertension * Blood pressure has been labile with her blood pressure being up in the 170s initially during review but came down to the 150s systolic. * She does have a history of high blood pressure and also has renal artery stenosis which could be contributing to the poorly controlled blood pressure. * She takes carvedilol which she took this morning. She is also on spironolactone which she did nottake this morning she says usually took it in the evenings. * Resume carvedilol and spironolactone. * IV hydralazine as needed #History of CVA * Had a subacute cortical gyral ischemic infarction in October 2022. * On Plavix and high intensity statin. Per gynecology to resume Plavix tomorrow. Not on aspirin dueto allergy to aspirin. * #Type 2 diabetes mellitus: * On Glimepiride. Also on Lantus 20 units daily. Insulin sliding scale. * Accu-Cheks ACHS. * Also takes sitagliptin. * #Hypothyroidism: On [place] Thyroid. DVT prophylaxis: As per primary service. Thank you for the courtesy of the consult. Hospitalist service will continue tofollow with you. Charges/Coding Visit Charges Inpatient E&M: 64336 Subs Hosp L2 12/27/24 1857 Carmen Dallas MD Cosigner Signature (if applicable): CC: ~ Signed [facility]04-01-2025 Progress note Author Anushka Hall [facility] Note Date/Time December 27, 2024 4:44 pm [facility] Medical Records Department [address] [place] [address] Progress Note 12/27/24 1639 MR#: [id number] Acct: [id number] Name: LEIDY BLANCO Rep #:[id number] : 1955 69 From: Anushka centeno MD PCP: Dr. Preet Farrar, DO Status:RE [facility] [place] Location: [place] [address] Progress Note patient seen- pain fairly controlled, catheter replaced and heart rate improved now, bp still elevated, BS 299 and will consult medicine for assistance with management. 12/27/24 1644 <Electronically signed by Anushka Hall MD> Anushka Hall MD Cosigner Signature (if applicable): CC: ~ Signed [facility] Work Phone: 1(585) 316-940604-01-2025 Progress note [facility] Medical Records Department [address] [place] [address] Progress Note 12/27/24 1639 MR#: [id number] Acct: [id number] Name: LEIDY BLANCO Rep #:[id number] : 1955 69 From: Anushka centeno MD PCP: Dr. Preet Farrar, DO Status:RE [facility] [place] Location: [place] [address] Progress Note patient seen- pain fairly controlled, catheter replaced and heart rate improved now, bp still elevated, BS 299 and will consult medicine for assistance with management. 12/27/24 1644 Anushka Hall MD Cosigner Signature (if applicable): CC: ~ Signed [facility]04-01-2025 Discharge summary Author Anushka Hall [facility] Note Date/Time December 27, 2024 12:1 7pm [facility] Medical Records Department [address] [place] [address] Instructions for Home/Discharge Instructions 12/27/24 1215 MR#: [id number] Acct: [id number] Name: LEIDY BLANCO Rep #:[id number] : 1955 69 From: Anushka centeno MD PCP: Dr. Preet Farrar, DO Status:RE [facility] [place] Discharge Instructions Diet Discharge Diet: No restrictions DC O2, CPAP, BIPAP needs Home O2 Discharge instructions: No Dressing / Incision Discharge Activity: Return to Normal Activity, May Not Drive (while taking narcotic pain medications.) and May Shower May resume sexual activity in: 6-8 weeks Dressing / Incision Call your doctor if your incision/area has: Continuous Slow Oozing, Sudden Increased Bleeding, Increased Pain/ Swelling, Increased Redness and Foul Smelling Discharge Call your doctor if you observe: Fever of 101 or Higher, Inability to urinate, Inability to have a bowel movement and Using more than 1 pad per hour Follow Up Care Please Follow Up With: Anushka Hall MD Test Results: Test results from this visit will be discussed in further detail at your follow- up appointment, if applicable. Discharge Plan Admission Attending Provider: Anushka Hall Primary Care Provider: Preet Farrar Instructions Print Language: Romanian Discharge Orders/Prescriptions Prescriptions: New oxycodone-acetaminophen [Percocet] 5-325 mg tablet 1 tab PO Q4H PRN (Reason: pain) 7 Days Qty: 20 0RF No Action Januvia 100 mg tablet 100 mg PO QDAY glimepiride 2 mg tablet 3 mg PO BID thyroid (pork) 120 MG tablet 120 tablet PO DAILY ergocalciferol (vitamin D2) 50,000 UNIT capsule 50,000 unit PO MOFR atorvastatin 80 mg Tablet 80 mg PO QHS Qty: 30 2RF clopidogrel 75 mg Tablet 75 mg PO DAILY Qty: 30 2RF carvedilol 6.25 mg tablet 6.25 mg PO BID spironolactone 25 mg tablet 25 mg PO BID pantoprazole 40 mg tablet,delayed release (DR/EC) 40 mg PO DAILY Qty: 30 0RF insulin glargine [Lantus Solostar U-100 Insulin] 100 unit/mL (3 mL) insulin pen 20 unit subcut DAILY thyroid (pork) [[place] Thyroid] 30 mg tablet 30 mg PO MOWEFR elderberry fruit 200 mg capsule 1,000 mg PO DAILY Referrals / Follow Up: Preet Farrar DO [Primary Care Provider] - Disposition Disposition (needs filled in before D/C Order can be placed): Home, Self Care 12/27/24 1217<Electronically signed by Anushka Hall MD>Anushka Hall MD CC: Dr. Preet Farrar DO ~ Signed [facility] Work Phone: 1(484) 721-500704-01-2025 Consult note Author Mati Ervin [facility] Note Date/Time December 27, 2024 11:1 7am [facility] Medical Records Department [address] [place] [address] Anesthesia Postop Eval II 12/27/24 1116 MR#: [id number] Acct: [id number] Name: LEIDY BLANCO Rep #:[id number] : 1955 69 From: Mati Ervin MD PCP: Dr. Preet Farrar DO Status: G [facility] [place] [facility] Y Race: C Location: [place] [address] Anesthesia Postop Eval I Sum Postop Eval Completion status Anesthesia document: Postop Eval 1 completed: Yes Anesthesia Postop Eval I Summary Anesthesia Postop Eval I Summary: Anesthesia Postop Eval I: Assessment Summary Airway patent Yes 12/27/24 10:05 EPIC CADENCE ANALYST.GDOTT Spontaneous unlabored Yes 12/27/24 10:05 EPIC CADENCE ANALYST.GDOTT respirations Mental status Awake,Calm 12/27/24 10:05 EPIC CADENCE ANALYST.GDOTT nausea No 12/27/24 10:05 EPIC CADENCE ANALYST.GDOTT Vomiting No 12/27/24 10:05 EPIC CADENCE ANALYST.GDOTT Anesthesia Postop Eval I: Fluid Summary Crystalloid volume administer 700 12/27/24 10:05 EPIC CADENCE ANALYST.GDOTT (ml) Colloids volume administered ( ml) Blood Product volume administered (ml) Total IV fluid infused 700 12/27/24 10:05 EPIC CADENCE ANALYST.GDOTT Anesthesia Postop Eval I: Summary Notes Anesthesia Complication No 12/27/24 10:05 EPIC CADENCE ANALYST.GDOTT Anesthesia Complication Comment: Post-operative progress note Anesthesia: Postop Eval II Evaluation Mental status: Awake and Calm Pain Level: 2 nausea: No Vomiting: No Complications Anesthesia Complication: No 12/27/24 1117 <Electronically signed by Mati victor MD> Date _ Mati Gilbertigner Signature: Date CC: ~ Signed [facility] Work Phone: 1(707) 463-629704-01-2025 Discharge summary [facility] Medical Records Department [address] [place] [address] Instructions for Home/Discharge Instructions 12/27/24 1215 MR#: [id number] Acct: [id number] Name: LEIDY BLANCO Rep #:[id number] : 1955 69 From: Anushka centeno MD PCP: Dr. Preet Farrar, DO Status: G [facility] [place] Discharge Instructions Diet Discharge Diet: No restrictions DC O2, CPAP, BIPAP needs Home O2 Discharge instructions: No Dressing / Incision Discharge Activity: Return to Normal Activity, May Not Drive (while taking narcotic pain medications.) and May Shower May resume sexual activity in: 6-8 weeks Dressing / Incision Call your doctor if your incision/area has: Continuous Slow Oozing, Sudden Increased Bleeding, Increased Pain/ Swelling, Increased Redness and Foul Smelling Discharge Call your doctor if you observe: Fever of 101 or Higher, Inability to urinate, Inability to have a bowel movement and Using more than 1 pad per hour Follow Up Care Please Follow Up With: Anushka Hall MD Test Results: Test results from this visit will be discussed in further detail at your follow- up appointment, if applicable. Discharge Plan Admission Attending Provider: Anushka Hall Primary Care Provider: Preet Farrar Instructions Print Language: Romanian Discharge Orders/Prescriptions Prescriptions: New oxycodone-acetaminophen [Percocet] 5-325 mg tablet 1 tab PO Q4H PRN (Reason: pain) 7 Days Qty: 20 0RF No Action Januvia 100 mg tablet 100 mg PO QDAY glimepiride 2 mg tablet 3 mg PO BID thyroid (pork) 120 MG tablet 120 tablet PO DAILY ergocalciferol (vitamin D2) 50,000 UNIT capsule 50,000 unit PO MOFR atorvastatin 80 mg Tablet 80 mg PO QHS Qty: 30 2RF clopidogrel 75 mg Tablet 75 mg PO DAILY Qty: 30 2RF carvedilol 6.25 mg tablet 6.25 mg PO BID spironolactone 25 mg tablet 25 mg PO BID pantoprazole 40 mg tablet,delayed release (DR/EC) 40 mg PO DAILY Qty: 30 0RF insulin glargine [Lantus Solostar U-100 Insulin] 100 unit/mL (3 mL) insulin pen 20 unit subcut DAILY thyroid (pork) [[place] Thyroid] 30 mg tablet 30 mg PO MOWEFR elderberry fruit 200 mg capsule 1,000 mg PO DAILY Referrals / Follow Up: Preet Farrar DO [Primary Care Provider] - Disposition Disposition (needs filled in before D/C Order can be placed): Home, Self Care 12/27/24 1217Anushka Hall MD CC: Dr. Preet Farrar DO ~ Signed [facility]04-01-2025 Procedure note [facility] Medical Records Department [address] [place] [address] Operative Report 12/27/24 1212 MR#: [id number] Acct: [id number] Name: LEIDY BLANCO Rep #:[id number] : 1955 69 From: Anushka centeno MD PCP: Dr. Preet Farrar DO Status:[facility] Location: [place] [address] Problems Associated Problem List Diagnoses (1) Endometrial hyperplasia without atypia: Multi Select Codes Urinary/Genital Urinary/Genital CPT Codes: 51344 TVH <250 gr uterus Operative Report (Standard) Operative Information Date of Procedure: 12/27/24 Pre-Operative Diagnosis: see problem list details Post-Operative Diagnosis: same Surgery/Procedure Performed: total vaginal hysterectomy radio machinist: Yes Metal Numerical Control Programmer: Isha Valderrama Tasks completed by assistant gm of content & delivery: Opening & closing and Retracting Type of Anesthesia: General RN Documented Start/Stop Times: Operation Date: 12/27/24 08:30 Case Time Into Pre-Op 12/27/24 06:33 Out of Pre-Op 12/27/24 08:14 Anesthesia Start 12/27/24 08:18 Into Room 12/27/24 08:18 Procedure Start 12/27/24 08:38 Procedure End 12/27/24 09:45 Anesthesia End 12/27/24 09:56 Out of Room 12/27/24 09:56 Into Recovery 12/27/24 10:00 Procedure Start Time: 08:38 Procedure Stop Time: 09:45 Select all DRAINS/GRAFTS/IMPLANTS that apply: Drains Drain details: doll Estimated Blood Loss: 150 Specimen collected: Yes Description of specimen(s) removed: uterus Description of surgery: Patient was taken to the operating room and was placed under general anesthesia was prepped and draped in normal sterile fashion in the dorsal lithotomy position. Preoperative antibiotics and SCDs and Doll catheter was placed inside the bladder. Weighted speculum was placed in the vagina and the anteriorand posterior lip of the cervix was grasped with 2 Linn clamps and circumferentially injected with dilute vasopressin. A circumferential incision was made with a scalpel and the posterior cul-de-sac was entered into sharply and a longneck speculum was placed. The anterior cul-de-sac was alsodissected down and entered into sharply and the uterosacral ligaments were clamped cut andsuture ligated bilaterally followed by the cardinal ligaments which were Clampedcut and suture ligated bilaterally with 0 Monocryl. The uterus serially descended and progressive bites were taken bilaterally upto the level of the utero-ovarian ligament bilaterally which was clamped transected and double ligat ed with 0 Monocryl suture and 0 Vicryl free tie. Bilateral ovaries were well visualized and noted be within normal limits and the bilateral fallopian tubes were unable to be completely visualized dueto scar tissue and previous surgery so unable to be removed. additional sutures for hemoastsis needed aroundthe cuff and then hemostasis was noted. The vagina was closed with [id number] 0 Vicrylpop offs including the posterior and anterior peritoneum in the reapproximation. Excellent hemostasis was noted. All instruments removed from the vagina clear urine was noted at the end of the procedure. Surgical Findings: nl uterus and ovaries. Complications Complications: No 12/27/24 1215 Cosigner Signature (if applicable): CC: Dr. Preet Farrar DO; Dr. Anushka Hall MD~ Signed [facility]04-01-2025 Consult note Author May Cartwright [facility] Note Date/Time December 27, 2024 10:0 5am [facility] Medical Records Department [address] [place] [address] Anesthesia Postop Eval I 12/27/24 1004 MR#: [id number] Acct: [id number] Name: LEIDY BLANCO Rep #:[id number] : 1955 69 From: May Cartwright PCP: Dr. Preet Farrar, DO Status:[facility] Y Race: C Location: [place] [address] Anesthesia: Postop Eval I Current Vital Signs Temperature: 97.7 F Pulse Rate: 52 Blood Pressure: 138/66 Respiratory Rate: 16 Pulse Ox: 95 Oxygen Delivery Method: Nasal Cannula Oxygen Flow Rate (L/min): 2 Assessment Airway patent: Yes Spontaneous unlabored respirations: Yes Mental status: Awake and Calm nausea: No Vomiting: No Anesthesia Complication: No Fluid Hydration Crystalloid volume administer (ml): 700 Total IV fluid infused: 700 Progress Note Anesthesia document: Postop Eval 1 completed: Yes 12/27/241004 <Electronically signed by May Cartwright > Date _ May Woods Signature: Date CC: ~ Signed [facility] Work Phone: 1(611) 294-465004-01-2025 Consult note [facility] Medical Records Department [address] [facility] [place] [address] Anesthesia Postop Eval II 12/27/24 1116 MR#: [id number] Acct: [id number] Name: LEIDY BLANCO Rep #:[id number] : 1955 69 From: Mati Evrin MD PCP: Dr. Preet Farrar, DO Status:RE G [facility] Y Race: C Location: [facility] Anesthesia Postop Eval I Sum Postop Eval Completion status Anesthesia document: Postop Eval 1 completed: Yes Anesthesia Postop Eval I Summary Anesthesia Postop Eval I Summary: Anesthesia Postop Eval I: Assessment Summary Airway patent Yes 12/27/24 10:05 EPIC CADENCE ANALYST.GDOTT Spontaneous unlabored Yes 12/27/24 10:05 EPIC CADENCE ANALYST.GDOTT respirations Mental status Awake,Calm 12/27/24 10:05 EPIC CADENCE ANALYST.GDOTT nausea No 12/27/24 10:05 EPIC CADENCE ANALYST.GDOTT Vomiting No 12/27/24 10:05 EPIC CADENCE ANALYST.GDOTT Anesthesia Postop Eval I: Fluid Summary Crystalloid volume administer 700 12/27/24 10:05 EPIC CADENCE ANALYST.GDOTT (ml) Colloids volume administered ( ml) Blood Product volume administered (ml) Total IV fluid infused 700 12/27/24 10:05 EPIC CADENCE ANALYST.GDOTT Anesthesia Postop Eval I: Summary Notes Anesthesia Complication No 12/27/24 10:05 EPIC CADENCE ANALYST.GDOTT Anesthesia Complication Comment: Post-operative progress note Anesthesia: Postop Eval II Evaluation Mental status: Awake and Calm Pain Level: 2 nausea: No Vomiting: No Complications Anesthesia Complication: No 12/27/24 1117 valente TURNER> Date _ Mati Ervin MD Cosigner Signature: Date CC: ~ Signed [facility]04-01-2025 Consult note Author Mati Ervin [facility] Note Date/Time December 27, 2024 8:06 am [facility] Medical Records Department [address] [place] [address] Pre-Anesthesia Evaluation 12/27/24 0752 MR#: [id number] Acct: [id number] Name: LEIDY BLANCO Rep #:[id number] : 1955 69 From: Mati Ervin MD PCP: Dr. Preet Farrar, DO Status:RE G [facility] Y Race: C Location: [place] [address] ASA Classification* ASA Classification ASA Classification: 3 Assessment & Plan Anesthesia* Anesthesia Assessment Anesthesia Assessment: Discussed sedation and/or anesthesia options, risks, benefits, and alternatives with patient/parents/legal guardian/POA. Questions invited. The patient/parents/legal guardian/POA seems to understand and agrees to proceedwith anesthesia plan. Reviewed the physical assessment, medical history, allergy history and patient home medications list prior to surgery/procedure/anesthetic and documented any changes. Performed airway and anesthesia risk assessments. Anesthesia Type Anesthesia Type: General (Patient has moderate aortic stenosis. Avoid heart increase in heart rate or decrease in blood pressure. Consider phenylephrin to treat.) History Source History Obtained from:: Patient and Chart Anesthesia Focused Assessment* Temperature: 98.2 F Pulse Rate: 64 Blood Pressure: 153/65 Respiratory Rate: 18 Pulse Ox: 97 Oxygen Delivery Method: Room Air Airway Assessment Mouth opens: >3 cm Mallampati Score: IV Teeth Condition: Caps/Crowns (Patient has caps on 9, 10, 11.) and Missing (Patient has several missing teeth. Rest of the teeth are tight.) Neck Range of motion (ROM): Full ROM Focused Labs Anesthesia Preop lab: CBC WBC 11.5 K/mm3 (4.4-11.0) H 12/15/24 12:37 5 RBC 4.65 M/mm3 (4.2-5.4) 12/15/24 12:37 12/15/24 Hgb 13.9 g/dL (12.0-15.0) 12/15/24 12:37 12/15/24 Hct 41.4 % (37-47) 12/15/24 12:37 12/15/24 Plt Count 354 K/mm3 (150-450) 12/15/24 12:37 12/15/24 CHEMISTRY Potassium 4.1 mmol/L (3.3-5.1) 12/15/24 12:37 12/15/24 Sodium 137 mmol/L (133-145) 12/15/24 12:37 12/15/24 Magnesium 1.8 mg/dL (1.5-2.2) 12/15/24 12:36 12/15/24 Phosphorus 1.8 mg/dL (2.5-4.9) L 03/06/24 04:46 03/06/24 BUN 19 mg/dL (4-19) 12/15/24 12:37 12/15/24 Creatinine 0.72 mg/dL (0.70-1.20) 12/15/24 12:37 12/15/24 Glucose 148 mg/dL (70-99) H 12/15/24 12:37 12/15/24 POC Glucose 222 mg/dL (74-106) H 12/27/24 07:00 12/27/24 TSH 0.836 uIU/mL (0.300-4.200) 12/15/24 12:37 11/27 COAG PT 14.0 SECONDS (11.7-14.9) 03/06/24 04:46 Pre-Assessment Diagnosis/Proposed Procedure Planned Operative Procedure(s): HYSTERECTOMY TLH BSO Anesthesia History Anesthesia History - special needs child caregiver: Anesthesia History - special needs child caregiver Hx Hospitalization No 12/13/24 09:23 Any Problems With Anesthesia Yes: N,V 12/13/24 09:23 Cholinesterase deficiency No 12/13/24 09:23 You/Your Family Experience No 12/13/24 09:23 fever (hyperthermia) with Relationship Recent Exposure to Contagious No 12/27/24 07:00 Disease Does patient have nerve No 12/13/24 09:23 stimulator Patient instructed to have device shut off --Does patient have Pacemaker No 12/27/24 07:00 or ICD? When Was Last Pacemaker Check QUESTION #4 FULL TEXT: You/Your Family Experience fever (hyperthermia) with Anesthesia Last Oral Intake Last Oral intake: Last Oral Intake NPO since 06:00 12/27/24 07:00 Meds taken in AM with sips of Yes 12/27/24 07:00 water? Meds patient instructed to see med rec 12/27/24 07:00 take am of surgery Any additional information?: Yes Meds taken in AM with sips of water?: Yes PONV PONV - special needs child caregiver: PONV - special needs child caregiver Female Yes 12/13/24 09:23 HX of Motion Sickness No 12/13/24 09:23 HX of N/V After Surgery Yes 12/13/24 09:23 Non-Smoker Yes 12/13/24 09:23 Duration of Surgery greater Yes 12/13/24 09:23 than 60 minutes Number of Risk Factors 4 12/13/24 09:23 PONV Score Severe Risk 12/13/24 09:23 Height & Weight Height & Weight: Anesthesia: Height & Weight Height 5 ft 12/27/24 07:00 Weight: 84.7 kg 12/27/24 07:00 Body Mass Index (BMI) 36.4 12/27/24 07:00 Respiratory Assessment Respiratory Assessment - special needs child caregiver: Respiratory Tract Infection Hx - special needs child caregiver Hx Respiratory Tract Infection No 12/13/24 09:23 STOP Sleep Apnea STOP Sleep Apnea - special needs child caregiver: STOP Sleep Apnea - special needs child caregiver Hx Hypertension Yes: CONTROLLED WITH MED 12/13/24 09:23 Hx Sleep Apnea No 12/13/24 09:23 CPAP BIPAP Do you snore loudly (louder No 12/13/24 09:23 than talking or can be heard Do you often feel tired/ No 12/13/24 09:23 fatigued/ sleepy during daytime? Has anyone observed you stop No 12/13/24 09:23 breathing during sleep? STOP Results Negative 12/13/24 09:23 QUESTION #5 FULL TEXT : Do you snore loudly (louder than talking or can be heard through closed doors)? 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 - special needs child caregiver: 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 - special needs child caregiver Tobacco Use Cigarettes 06/13/24 15:14 Smoking Status Former smoker 12/13/24 09:23 Hx Tobacco Use Yes: marijuana 12/13/24 09:23 Years Smoking Packs Smoked per Day Smoking Cessation Date was Yes - quit smoking within 15 12/13/24 09:23 within the last 15 years years Hx Smoking Cessation Date 10/29/22 12/13/24 09:23 Hx Smoking Cessation No 12/13/24 09:23 Counseling Hematologic Medial History Hematologic Hx - special needs child caregiver: Hematologic Medical Hx - outdoor studies director Hx of Blood Transfusion No 12/13/24 09:23 Hx of Transfusion in last 3 No 12/13/24 09:23 Months Date of Last Transfusion (if within last 3 months) Ever experience any problems No 12/13/24 09:23 with transfusion(s)? Specify any problems Hx of Preganancy in last 3 No 12/13/24 09:23 Months Nurse Filling Out Transfusion DSCHRIBER 12/13/24 09:23 & Questions: Date: 12/13/24 12/13/24 09:23 Time: :12/13/24 09:23 Patient unable to answer at this time (ie. confused, unrespo /Reproduction History /Reproductive History - special needs child caregiver: /Reproductive Hx- special needs child caregiver Hx Now No 12/13/24 09:23 Gestational Age (in weeks): EDC: Hx Hx Para Hx Section SAB No 12/13/24 09:23 Active Medications Active Medications: Current Medications Generic Name Dose Route Start Last Admin Trade Name Freq PRN Reason Stop Dose Admin Acetaminophen 1,000 mg 12/27/24 08:30 12/27/24 07:24 Acetaminophen 500 Mg Tablet PO 12/27/24 08:31 1,000 mg PREOP ONE Administration Dexamethasone Sodium Phosphate 8 mg 12/27/24 08:30 Dexamethasone 4 Mg/Ml Vial IV 12/27/24 08:31 X1 ONE Enoxaparin Sodium 40 mg 12/27/24 08:30 12/27/24 07:23 Enoxaparin 40 Mg/0.4 Ml Syringe SC 12/27/24 08:31 40 mg X1 ONE Administration Gabapentin 600 mg 12/27/24 08:30 12/27/24 07:24 Gabapentin 600 Mg Tablet PO 12/27/24 08:31 600 mg PREOP ONE Administration Lactated Ringer's 1,000 mls @ 40 mls/hr 12/27/24 08:30 12/27/24 07:00 IV 40 mls/hr .Q25H SUSANA Administration Cefazolin Sodium 2 gm/ N/A 20 mls @ 400 mls/hr 12/27/24 08:30 IV 12/27/24 08:32 PREOP ONE Magnesium Sulfate 2 gm/ 104 mls @ 208 mls/hr 12/27/24 08:30 12/27/24 07:10 Dextrose IV 12/27/24 08:59 208 mls/hr X1 ONE Administration Insulin Human Lispro 0 unit 12/27/24 08:30 12/27/24 07:24 Insulin Lispro 100 Unit/Ml Insuln.Pen SC 2 units Q4H PRN PRN Administration BG >/= 180, SEE PROTOCOL Protocol Ondansetron HCl 4 mg 12/27/24 08:30 Ondansetron 4 Mg/2 Ml Vial IV 12/27/24 08:31 X1 ONE Phenazopyridine HCl 190 mg 12/27/24 08:30 12/27/24 07:23 Phenazopyridine 95 Mg Tablet PO 12/27/24 08:31 190 mg X1 ONE Administration Scopolamine HBr 1 patch 12/27/24 08:30 12/27/24 07:23 Scopolamine 1mg/72hr Patch TD 12/27/24 08:31 1 mg X1 ONE Administration [facility] Medical History Cardiology follow-up encounter History of stress test First degree AV block Simple endometrial hyperplasia without atypia Wears glasses Post-menopausal Marijuana use Insulin dependent diabetes mellitus Thyroid disease Fatty liver High cholesterol Ulcerative colitis GERD (gastroesophageal reflux disease) Leg cramps History of echocardiogram Hypertension PONV (postoperative nausea and vomiting) Encounter for screening examination for sexually transmitted disease HPV test positive Pelvic pain Thickened endometrium Anxiety Stroke/cerebrovascular accident (11/02/22) Former tobacco use Near syncope Elevated troponin Abnormal EKG Hyponatremia Prolonged QT interval Polyneuropathy Occlusion of left internal carotid artery Ischemic stroke 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 Irritable bowel syndrome Celiac disease Ulcerative colitis Muscle spasm Hypothyroidism Hypertension Vitamin D deficiency Diabetes mellitus Lumbar spinal stenosis Lumbar disc herniation with radiculopathy Ambulatory dysfunction Intractable back pain Home Medications ?Medication ?Instructions ?Recorded ?Last Taken ?Type ergocalciferol (vitamin D2) 1,250 50,000 unit PO MOFR SUPPLEMENT 12/18/20 12/26/24 08:00 History mcg (50,000 unit) capsule thyroid (pork) 120 mg tablet 120 tablet PO DAILY THYRO ID 12/18/20 12/27/24 06:00 History atorvastatin 80 mg tablet 80 mg PO QHS cholesterol #30 tabs 11/04/22 12/26/24 20:45 Rx clopidogrel 75 mg tablet 75 mg PO DAILY BLOOD THINNER #30 11/04/22 12/22/24 Rx tabs carvedilol 6.25 mg tablet 6.25 mg PO BID 03/05/24 04/10/22 06:00 History pantoprazole 40 mg tablet,delayed 40 mg PO DAILY #30 t abs 05/22/24 12/27/24 06:00 Rx release sitagliptin phosphate 100 mg 100 mg PO QDAY 07/07/24 0 12/22/24 History tablet (Januvia) thyroid (pork) 30 mg tablet 30 mg PO MOWEFR 07/21/24 0 12/26/24 08:00 History ([place] Thyroid) glimepiride 2 mg tablet 3 mg PO BID 08/10/24 5 17:45 History insulin glargine 100 unit/mL (3 20 unit subcut DAILY 0 12/12/24 12/26/24 10:00 History mL) subcutaneous pen (Lantus Solostar U-100 Insulin) spironolactone 25 mg tablet 25 mg PO BID 12/12/2411/28 20:00 History elderberry fruit 200 mg capsule 1,000 mg PO DAILY 11/2612/26/24 08:00 History Allergy/AdvReac Type Severity Reaction Status Date / Time metformin Allergy Severe Hives Verified 12/27/24 07:03 prednisone Allergy Intermediate Itching Verified 12/27/24 07:03 aspirin Allergy mouth Verified 12/27/24 07:03 swelling gluten Allergy Abd Verified 12/27/24 07:03 cramps/diarrhea ibuprofen Allergy mouth Verified 12/27/24 07:03 swelling Sulfa (Sulfonamide Allergy pt can't Verified 12/27/24 07:03 Antibiotics) remember Family History Mother Heart disease Alzheimers disease Father Heart disease Hypertension CAD (coronary artery disease) Myocardial infarction Thyroid disorder Diabetes Sister Cancer Surgical History History of esophagogastroduodenoscopy (EGD) Hx of colonoscopy History of hysteroscopy History of back surgery (~2019) Hx of umbilical hernia repair S/P tubal ligation S/P cholecystectomy S/P tonsillectomy and adenoidectomy History of lumbar fusion History of lumbar discectomy Social History adopted: No household members: none number of children: 3 sexually active: Yes Smoking Status: Former smoker alcohol intake: never substance use type: marijuana and other details: Medical cannabis, usually daily. seatbelt use: always do you feel safe at home: Yes Review of Systems (Anesthesia) ROS Narrative System reviewed and no additional complaints, except as documented. 12/27/24 0806 <Electronically signed by Mati victor MD> Date _ Mati Ervin MD Cosigner Signature: Date CC: ~ Signed [facility] Work Phone: 1(451) 823-411904-01-2025 Consult note [facility] Medical Records Department [address] [place] [address] Anesthesia Postop Eval I 12/27/24 1004 MR#: [id number] Acct: [id number] Name: LEIDY BLANCO Rep #:[id number] : 1955 69 From: May Cartwright PCP: Dr. Preet Farrar, DO Status: G [facility] [place] [facility] Y Race: C Location: [place] [address] Anesthesia: Postop Eval I Current Vital Signs Temperature: 97.7 F Pulse Rate: 52 Blood Pressure: 138/66 Respiratory Rate: 16 Pulse Ox: 95 Oxygen Delivery Method: Nasal Cannula Oxygen Flow Rate (L/min): 2 Assessment Airway patent: Yes Spontaneous unlabored respirations: Yes Mental status: Awake and Calm nausea: No Vomiting: No Anesthesia Complication: No Fluid Hydration Crystalloid volume administer (ml): 700 Total IV fluid infused: 700 Progress Note Anesthesia document: Postop Eval 1 completed: Yes 12/27/24 1005 > Date _ May Woods Signature: Date CC: ~ Signed [facility]04-01-2025 History and physical note Author Anushka Hall [facility] Note Date/Time December 27, 2024 7:22 am [facility] Medical Records Department [address] [place] [address] History & Physical Exam 12/27/24 0721 MR#: [id number] Acct: [id number] Name: LEIDY BLANCO Rep #:[id number] : 1955 69 From: Anushka centeno MD PCP: Dr. Preet Farrar, DO Status:[facility] Location: [place] [address] History and Physical Date of Admission: 12/27/24 Intake Vital Signs 09/13/2413:58 12/12/2509:53 Height 5 ft 5 ft Weight: 181 lb 188 lb 4 oz BMI 35.3 36.7 BP 153/69 H 152/59 H Blood Pressure Location Rt brachial Position Sitting Respiration 18 Pulse 69 Pulse Source Monitor Pulse Oximetry (%) 96 Oxygen Delivery Method room air Intake Visit Reasons: TVHBS Chief Complaint: FU consult medications Delphi Programmer Required: No Is patient in pain?: No Allergies metformin Allergy (Severe, Verified 09/13/24 14:02) Hivesprednisone Allergy (Intermediate, Verified 09/13/24 14:02) Itchingaspirin Allergy (Verified 09/13/24 14:02) mouth swellinggluten Allergy (Verified 09/13/24 14:02) Abd cramps/diarrheaibuprofen Allergy (Verified 09/13/24 14:02) mouth swellingSulfa (Sulfonamide Antibiotics) Allergy (Verified 09/13/24 14:02) pt can't remember Medications ?Medication ?Instructions ?Recorded ?Confirmed ?Type ergocalciferol (vitamin D2) 1,250 50,000 unit PO MOFR SUPPLEMENT 12/18/20 12/12/24 History mcg (50,000 unit) capsule thyroid (pork) 120 mg tablet 120 tablet PO DAILY THYROID 12/18/20 History atorvastatin 80 mg tablet 80 mg PO QHS cholesterol #30 tabs 12/12/24 Rx clopidogrel 75 mg tablet 75 mg PO DAILY BLOOD THINNER #30 3 12/12/24 Rx tabs carvedilol 6.25 mg tablet 6.25 mg PO BID 03/05/24 12/12/24 History pantoprazole 40 mg tablet,delayed 40 mg PO DAILY #30 tabs 05/22/24 5 Rx release vitamin C 30 mg-zinc citrate 1.1 1 tab PO DAILY 05/22/24 12/12/24 History mg-elderberry 25 mg chewable tablet (Sambucus Elderberry) sitagliptin phosphate 100 mg 100 mg PO QDAY 07/07/24 12/12/24 History tablet (Januvia) thyroid (pork) 30 mg tablet 30 mg PO MOWEFR 07/21/24 12/12/24 Histor y ([place] Thyroid) glimepiride 2 mg tablet 3 mg PO BID 08/10/24 12/12/24 History ondansetron 4 mg disintegrating 4 mg PO Q8H PRN 08/12/24 12/12/24 Histor y tablet insulin glargine 100 unit/mL (3 20 unit subcut DAILY 12/12/24 12/12/24 H istory mL) subcutaneous pen (Lantus Solostar U-100 Insulin) spironolactone 25 mg tablet 25 mg PO BID 12/12/24 12/12/24 History Is last menstrual period known: No Post menopausal: Yes Patient : No : No Nurse's Note: FU medication consult [facility] Medical History First degree AV block Abnormal EKG Hypothyroidism Simple endometrial hyperplasia without atypia Encounter for screening examination for sexually transmitted disease HPV test positive Pelvic pain Thickened endometrium Wears glasses Post-menopausal Marijuana use Insulin dependent diabetes mellitus Thyroid disease Fatty liver High cholesterol Ulcerative colitis GERD (gastroesophageal reflux disease) Leg cramps History of echocardiogram Hypertension PONV (postoperative nausea and vomiting) Marijuana smoker Anxiety Depression Diabetes Former smoker Stroke/cerebrovascular accident (11/02/22) Former tobacco use Head injury Near syncope Elevated troponin Hyponatremia Prolonged QT interval Polyneuropathy Occlusion of left internal carotid artery Ischemic stroke 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 Irritable bowel syndrome Celiac disease Ulcerative colitis Muscle spasm Hypertension Vitamin D deficiency Diabetes mellitus Lumbar spinal stenosis Lumbar disc herniation with radiculopathy Ambulatory dysfunction Intractable back pain Surgical History History of back surgery (~2019) Hx of umbilical hernia repair S/P tubal ligation S/P cholecystectomy S/P tonsillectomy and adenoidectomy History of lumbar fusion History of lumbar discectomy Family History Mother Heart disease Alzheimers diseaseFather Heart disease Hypertension CAD (coronary artery disease) Myocardial infarction Thyroid disorder DiabetesSister Cancer Social History adopted: No household members: none number of children: 3 sexually active: Yes Smoking Status: Former smoker alcohol intake: never substance use type: marijuana and other details: Medical cannabis, usually daily. seatbelt use: always do you feel safe at home: Yes HPI TVHBS Details: LEIDY BLANCO is a 69 year old who presents for preop appointment. she has endometrial hyperplasia and is planning a hysterectomy for this. she has seen cardiology and is seeing her PCP thursday. she had an US that chowed a 7 cm uterus, d an c showed polyp with hyperplasia. denies any pelvic pain or pressure. she has had a history of stroke in the past,no vaginal bleeding, had d and c and hyperplasia diagnosed, not a candidate for hormonal therapy. needs to be medically optimized prior to surgery with hypertension and diabetes. Female Reproductive History Menopausal Symptoms: No night sweats History 3 Elective abortions Hx Para 3 Spontaneous abortions Hx # Term Pregnancies Ectopic pregnancies Hx # Pregnancies Multiple births # of living children 3 Past Pregnancies Del. Date Name GA/Weeks Outcome Route Bth Weight Gen Labor Lgth Anesthesia Del Locatn Provider FOB Unknown 1985 Alicia Unknown 1989 Zoey Unknown 1996 Jeffrey Strange Constitutional: Denies fatigue, night sweats, weight gain or weight loss ENT ENT: Reports system reviewed and no additional complaints, except as documented Cardio Card: Denies chest pain Resp Resp: Denies cough or dyspnea GI GI: Reports as per HPI; Denies abdominal pain, constipation, nausea or vomiting : Denies nipple discharge, urinary frequency, urinary incontinence, urinary hesitancy, urinary urgency, vaginal discharge, vaginal dryness, vaginal odor or vaginal pruritus Musc Musc: Reports arthralgias and back pain; Denies muscle weakness Skin Skin/Breast: Denies alopecia, change in hair, dry skin, breast mass, breast pain, breast skin changes or nipple discharge Neuro Neuro: Reports system reviewed and no additional complaints, except as documented Psych Psych: Reports system reviewed and no additional complaints, except as documented Endo Endo: Denies cold intolerance, excessive sweating, heat intolerance or polydipsia Antonio/Lymph Hematologic/Lymphatic: Denies easy bleeding, Denies easy bruising and Denies lymphadenopathy Exam Const General: cooperative, healthy appearing, comfortable, no acute distress and welldeveloped Orientation: alert [facility] Head: normal to inspection and normocephalic Ears: hearing grossly normal bilaterally and external ears normal Nose: external nose normal and nares normal Face and sinus: normal facial exam Neck Neck: normal visual inspection and no lymphadenopathy Thyroid: thyroid normal Chest Chest palpation & inspection: normal inspection of the chest Resp Effort & Inspection: normal respiratory effort Auscultation: clear to auscultation bilaterally Cardio Rate: regular rate Rhythm: regular rhythm Heart Sounds: S1 normal, S2 normal and murmur systolic GI Inspection: normal to inspection and non-distended Palpation: soft and no hepatosplenomegaly General: bladder normal to palpation External Female Exam: normal external appearance and normal appearance of the urethra Urethra: normal appearance of the urethra, normal palpation and no discharge Speculum Exam - Vagina: normal appearance of the vagina and normal vaginal discharge Speculum Exam - Cervix: normal appearance of the cervix and nontender Bimanual Exam- Vagina & Uterus: normal bimanual exam, uterine size normal, bladder normal to palpation, uterine shape normal, No tender, uterine mobility normal, consistency normal, normal palpation and non-tender Bimanual Exam- Adnexa, other: normal adnexae, adnexae mobile, no masses and normal Pelvic Support: normal Musc Other: gross motor intact no deficits, full bilateral strength Skin General: no rashes or lesions noted Neuro General: patient alert, patient awake, moves all extremities and no focal motor deficits Motor: muscle tone normal throughout Extrem General: normal to inspection and no pedal edema Psych Appearance: grossly normal Mental Status: mental status grossly normal Affect: normal affect Speech and Movement: speech and movement normal Coding Level of Care Code No Charge Diagnoses Endometrial hyperplasia without atypia N85.00 Assessment and Plan Assessment and Plan (1) Endometrial hyperplasia without atypia: Status: Acute Comment: not a hormonal candidate, plan tvhbs, s/p cardio and pcp clearance Plan After discussing the patient's diagnosis and treatment plan options, patient wishes to proceed with surgical management. I have discussed with the patient the risks, benefits, and alternatives of the procedure which include but are notlimited to risks of anesthesia, bleeding, infection, possible damage to bowel, bladder, or surrounding vasculature which could lead to additional surgery to evaluate any complications. Patient agrees to procedure and wishes to proceed. ACOG/uptodate references given for additional information regarding procedure. last dose plavix last UPDATE- I have seen the patient and performed any clinically relevant updates to the history and physical exam. Anushka Hall MD 12/27/24 0722 <Electronically signed by Anushka Hall MD> Cosigner Signature (if applicable): CC: Dr. Preet Farrar DO; Dr. Anushka Hall MD~ Signed [facility] Work Phone: 1(115) 348-980704-01-2025 Consult note [facility] Medical Records Department [address] [place] [address] Pre-Anesthesia Evaluation 12/27/24 0752 MR#: [id number] Acct: [id number] Name: LEIDY BLANCO Rep #:[id number] : 1955 69 From: Mati Ervin MD PCP: Dr. Preet Farrar DO Status:[facility] Y Race: C Location: [place] [address] ASA Classification* ASA Classification ASA Classification: 3 Assessment & Plan Anesthesia* Anesthesia Assessment Anesthesia Assessment: Discussed sedation and/or anesthesia options, risks, benefits, and alternatives with patient/parents/legal guardian/POA. Questions invited. The patient/parents/legal guardian/POA seems to understand and agrees to proceedwith anesthesia plan. Reviewed the physical assessment, medical history, allergy history and patient home medications list prior to surgery/procedure/anesthetic and documented any changes. Performed airway and anesthesia risk assessments. Anesthesia Type Anesthesia Type: General (Patient has moderate aortic stenosis. Avoid heart increase in heart rate or decrease in blood pressure. Consider phenylephrin to treat.) History Source History Obtained from:: Patient and Chart Anesthesia Focused Assessment* Temperature: 98.2 F Pulse Rate: 64 Blood Pressure: 153/65 Respiratory Rate: 18 Pulse Ox: 97 Oxygen Delivery Method: Room Air Airway Assessment Mouth opens: >3 cm Mallampati Score: IV Teeth Condition: Caps/Crowns (Patient has caps on 9, 10, 11.) and Missing (Patient has several missing teeth. Rest of the teeth are tight.) Neck Range of motion (ROM): Full ROM Focused Labs Anesthesia Preop lab: CBC WBC 11.5 K/mm3 (4.4-11.0) H 12/15/24 12:37 5 RBC 4.65 M/mm3 (4.2-5.4) 12/15/24 12:37 12/15/24 Hgb 13.9 g/dL (12.0-15.0) 12/15/24 12:37 12/15/24 Hct 41.4 % (37-47) 12/15/24 12:37 12/15/24 Plt Count 354 K/mm3 (150-450) 12/15/24 12:37 12/15/24 CHEMISTRY Potassium 4.1 mmol/L (3.3-5.1) 12/15/24 12:37 12/15/24 Sodium 137 mmol/L (133-145) 12/15/24 12:37 12/15/24 Magnesium 1.8 mg/dL (1.5-2.2) 12/15/24 12:36 12/15/24 Phosphorus 1.8 mg/dL (2.5-4.9) L 03/06/24 04:46 03/06/24 BUN 19 mg/dL (4-19) 12/15/24 12:37 12/15/24 Creatinine 0.72 mg/dL (0.70-1.20) 12/15/24 12:37 12/15/24 Glucose 148 mg/dL (70-99) H 12/15/24 12:37 12/15/24 POC Glucose 222 mg/dL (74-106) H 12/27/24 07:00 12/27/24 TSH 0.836 uIU/mL (0.300-4.200) 12/15/24 12:37 11/27 COAG PT 14.0 SECONDS (11.7-14.9) 03/06/24 04:46 Pre-Assessment Diagnosis/Proposed Procedure Planned Operative Procedure(s): HYSTERECTOMY TLH BSO Anesthesia History Anesthesia History - special needs child caregiver: Anesthesia History - special needs child caregiver Hx Hospitalization No 12/13/24 09:23 Any Problems With Anesthesia Yes: N,V 12/13/24 09:23 Cholinesterase deficiency No 12/13/24 09:23 You/Your Family Experience No 12/13/24 09:23 fever (hyperthermia) with Relationship Recent Exposure to Contagious No 12/27/24 07:00 Disease Does patient have nerve No 12/13/24 09:23 stimulator Patient instructed to have device shut off --Does patient have Pacemaker No 12/27/24 07:00 or ICD? When Was Last Pacemaker Check QUESTION #4 FULL TEXT: You/Your Family Experience fever (hyperthermia) with Anesthesia Last Oral Intake Last Oral intake: Last Oral Intake NPO since 06:00 12/27/24 07:00 Meds taken in AM with sips of Yes 12/27/24 07:00 water? Meds patient instructed to see med rec 12/27/24 07:00 take am of surgery Any additional information?: Yes Meds taken in AM with sips of water?: Yes PONV PONV - special needs child caregiver: PONV - special needs child caregiver Female Yes 12/13/24 09:23 HX of Motion Sickness No 12/13/24 09:23 HX of N/V After Surgery Yes 12/13/24 09:23 Non-Smoker Yes 12/13/24 09:23 Duration of Surgery greater Yes 12/13/24 09:23 than 60 minutes Number of Risk Factors 4 12/13/24 09:23 PONV Score Severe Risk 12/13/24 09:23 Height & Weight Height & Weight: Anesthesia: Height & Weight Height 5 ft 12/27/24 07:00 Weight: 84.7 kg 12/27/24 07:00 Body Mass Index (BMI) 36.4 12/27/24 07:00 Respiratory Assessment Respiratory Assessment - special needs child caregiver: Respiratory Tract Infection Hx - special needs child caregiver Hx Respiratory Tract Infection No 12/13/24 09:23 STOP Sleep Apnea STOP Sleep Apnea - special needs child caregiver: STOP Sleep Apnea - special needs child caregiver Hx Hypertension Yes: CONTROLLED WITH MED 12/13/24 09:23 Hx Sleep Apnea No 12/13/24 09:23 CPAP BIPAP Do you snore loudly (louder No 12/13/24 09:23 than talking or can be heard Do you often feel tired/ No 12/13/24 09:23 fatigued/ sleepy during daytime? Has anyone observed you stop No 12/13/24 09:23 breathing during sleep? STOP Results Negative 12/13/24 09:23 QUESTION #5 FULL TEXT : Do you snore loudly (louder than talking or can be heard through closeddoors)? 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 - special needs child caregiver: 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 - special needs child caregiver Tobacco Use Cigarettes 06/13/24 15:14 Smoking Status Former smoker 12/13/24 09:23 Hx Tobacco Use Yes: marijuana 12/13/24 09:23 Years Smoking Packs Smoked per Day Smoking Cessation Date was Yes - quit smoking within 15 12/13/24 09:23 within the last 15 years years Hx Smoking Cessation Date 10/29/22 12/13/24 09:23 Hx Smoking Cessation No 12/13/24 09:23 Counseling Hematologic Medial History Hematologic Hx - special needs child caregiver: Hematologic Medical Hx - outdoor studies director Hx of Blood Transfusion No 12/13/24 09:23 Hx of Transfusion in last 3 No 12/13/24 09:23 Months Date of Last Transfusion (if within last 3 months) Ever experience any problems No 12/13/24 09:23 with transfusion(s)? Specify any problems Hx of Preganancy in last 3 No 12/13/24 09:23 Months Nurse Filling Out Transfusion DSCHRIBER 12/13/24 09:23 & Questions: Date: 12/13/24 12/13/24 09:23 Time: 12/13/24 09:23 Patient unable to answer at this time (ie. confused, unrespo /Reproduction History /Reproductive History - special needs child caregiver: /Reproductive Hx- special needs child caregiver Hx Now No 12/13/24 09:23 Gestational Age (in weeks): EDC: Hx Hx Para Hx Section SAB No 12/13/24 09:23 Active Medications Active Medications: Current Medications Generic Name Dose Route Start Last Admin Trade Name Freq PRN Reason Stop Dose Admin Acetaminophen 1,000 mg 12/27/24 08:30 12/27/24 07:24 Acetaminophen 500 Mg Tablet PO 12/27/24 08:31 1,000 mg PREOP ONE Administration Dexamethasone Sodium Phosphate 8 mg 12/27/24 08:30 Dexamethasone 4 Mg/Ml Vial IV 12/27/24 08:31 X1 ONE Enoxaparin Sodium 40 mg 12/27/24 08:30 12/27/24 07:23 Enoxaparin 40 Mg/0.4 Ml Syringe SC 12/27/24 08:31 40 mg X1 ONE Administration Gabapentin 600 mg 12/27/24 08:30 12/27/24 07:24 Gabapentin 600 Mg Tablet PO 12/27/24 08:31 600 mg PREOP ONE Administration Lactated Ringer's 1,000 mls @ 40 mls/hr 12/27/24 08:30 12/27/24 07:00 IV 40 mls/hr .Q25H SUSANA Administration Cefazolin Sodium 2 gm/ N/A 20 mls @ 400 mls/hr 12/27/24 08:30 IV 12/27/24 08:32 PREOP ONE Magnesium Sulfate 2 gm/ 104 mls @ 208 mls/hr 12/27/24 08:30 12/27/24 07:10 Dextrose IV 12/27/24 08:59 208 mls/hr X1 ONE Administration Insulin Human Lispro 0 unit 12/27/24 08:30 12/27/24 07:24 Insulin Lispro 100 Unit/Ml Insuln.Pen SC 2 units Q4H PRN PRN Administration BG >/= 180, SEE PROTOCOL Protocol Ondansetron HCl 4 mg 12/27/24 08:30 Ondansetron 4 Mg/2 Ml Vial IV 12/27/24 08:31 X1 ONE Phenazopyridine HCl 190 mg 12/27/24 08:30 12/27/24 07:23 Phenazopyridine 95 Mg Tablet PO 12/27/24 08:31 190 mg X1 ONE Administration Scopolamine HBr 1 patch 12/27/24 08:30 12/27/24 07:23 Scopolamine 1mg/72hr Patch TD 12/27/24 08:31 1 mg X1 ONE Administration PFSH Medical History Cardiology follow-up encounter History of stress test First degree AV block Simple endometrial hyperplasia without atypia Wears glasses Post-menopausal Marijuana use Insulin dependent diabetes mellitus Thyroid disease Fatty liver High cholesterol Ulcerative colitis GERD (gastroesophageal reflux disease) Leg cramps History of echocardiogram Hypertension PONV (postoperative nausea and vomiting) Encounter for screening examination for sexually transmitted disease HPV test positive Pelvic pain Thickened endometrium Anxiety Stroke/cerebrovascular accident (11/02/22) Former tobacco use Near syncope Elevated troponin Abnormal EKG Hyponatremia Prolonged QT interval Polyneuropathy Occlusion of left internal carotid artery Ischemic stroke 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 Irritable bowel syndrome Celiac disease Ulcerative colitis Muscle spasm Hypothyroidism Hypertension Vitamin D deficiency Diabetes mellitus Lumbar spinal stenosis Lumbar disc herniation with radiculopathy Ambulatory dysfunction Intractable back pain Home Medications ?Medication ?Instructions ?Recorded ?Last Taken ?Type ergocalciferol (vitamin D2) 1,250 50,000 unit PO MOFR SUPPLEMENT 12/18/20 12/26/24 08:00 History mcg (50,000 unit) capsule thyroid (pork) 120 mg tablet 120 tablet PO DAILY THYRO ID 12/18/20 12/27/24 06:00 History atorvastatin 80 mg tablet 80 mg PO QHS cholesterol #30 tabs 11/04/22 12/26/24 20:45 Rx clopidogrel 75 mg tablet 75 mg PO DAILY BLOOD THINNER #30 11/04/22 12/22/24 Rx tabs carvedilol 6.25 mg tablet 6.25 mg PO BID 03/05/24 04/0 10/22 06:00 History pantoprazole 40 mg tablet,delayed 40 mg PO DAILY #30 t abs 05/22/24 12/27/24 06:00 Rx release sitagliptin phosphate 100 mg 100 mg PO QDAY 07/07/24 0 12/22/24 History tablet (Januvia) thyroid (pork) 30 mg tablet 30 mg PO MOWEFR 07/21/24 0 12/26/24 08:00 History ([place] Thyroid) glimepiride 2 mg tablet 3 mg PO BID 08/10/24 5 17:45 History insulin glargine 100 unit/mL (3 20 unit subcut DAILY 0 12/12/24 12/26/24 10:00 History mL) subcutaneous pen (Lantus Solostar U-100 Insulin) spironolactone 25 mg tablet 25 mg PO BID 12/12/2411/28 20:00 History elderberry fruit 200 mg capsule 1,000 mg PO DAILY 11/2612/26/24 08:00 History Allergy/AdvReac Type Severity Reaction Status Date / Time metformin Allergy Severe Hives Verified 12/27/24 07:03 prednisone Allergy Intermediate Itching Verified 12/27/24 07:03 aspirin Allergy mouth Verified 12/27/24 07:03 swelling gluten Allergy Abd Verified 12/27/24 07:03 cramps/diarrhea ibuprofen Allergy mouth Verified 12/27/24 07:03 swelling Sulfa (Sulfonamide Allergy pt can't Verified 12/27/24 07:03 Antibiotics) remember Family History Mother Heart disease Alzheimers disease Father Heart disease Hypertension CAD (coronary artery disease) Myocardial infarction Thyroid disorder Diabetes Sister Cancer Surgical History History of esophagogastroduodenoscopy (EGD) Hx of colonoscopy History of hysteroscopy History of back surgery (~2019) Hx of umbilical hernia repair S/P tubal ligation S/P cholecystectomy S/P tonsillectomy and adenoidectomy History of lumbar fusion History of lumbar discectomy Social History adopted: No household members: none number of children: 3 sexually active: Yes Smoking Status: Former smoker alcohol intake: never substance use type: marijuana and other details: Medical cannabis, usually daily. seatbelt use: always do you feel safe at home: Yes Review of Systems (Anesthesia) ROS Narrative System reviewed and no additional complaints, except as documented. 12/27/24 08 valente TURNER> Date _ Mati Ervin MD Cosigner Signature: Date CC: ~ Signed [facility]04-01-2025 History and physical note [facility] Medical Records Department [address] [place] [address] History & Physical Exam 12/27/24720 MR#: [id number] Acct: [id number] Name: LEIDY BLANCO Rep #:[id number] : 1955 69 From: Anushka centeno MD PCP: Dr. Preet Farrar, DO Status:[facility] Location: [place] [address] History and Physical Date of Admission: 12/27/24 Intake Vital Signs 09/13/2413:58 12/12/2509:53 Height 5 ft 5 ft Weight: 181 lb 188 lb 4 oz BMI 35.3 36.7 BP 153/69 H 152/59 H Blood Pressure Location Rt brachial Position Sitting Respiration 18 Pulse 69 Pulse Source Monitor Pulse Oximetry (%) 96 Oxygen Delivery Method room air Intake Visit Reasons: TVHBS Chief Complaint: FU consult medications Del[employer] Programmer Required: No Is patient in pain?: No Allergies metformin Allergy (Severe, Verified 09/13/24 14:02) Hivesprednisone Allergy (Intermediate, Verified 09/13/24 14:02) Itchingaspirin Allergy (Verified 09/13/24 14:02) mouth swellinggluten Allergy (Verified 09/13/24 14:02) Abd cramps/diarrheaibuprofen Allergy (Verified 09/13/24 14:02) mouth swellingSulfa (Sulfonamide Antibiotics) Allergy (Verified 09/13/24 14:02) pt can't remember Medications ?Medication ?Instructions ?Recorded ?Confirmed ?Type ergocalciferol (vitamin D2) 1,250 50,000 unit PO MOFR SUPPLEMENT 12/18/20 12/12/24 History mcg (50,000 unit) capsule thyroid (pork) 120 mg tablet 120 tablet PO DAILY THYROID 12/18/20 History atorvastatin 80 mg tablet 80 mg PO QHS cholesterol #30 tabs 12/12/24 Rx clopidogrel 75 mg tablet 75 mg PO DAILY BLOOD THINNER #30 3 12/12/24 Rx tabs carvedilol 6.25 mg tablet 6.25 mg PO BID 03/05/24 12/12/24 History pantoprazole 40 mg tablet,delayed 40 mg PO DAILY #30 tabs 05/22/24 5 Rx release vitamin C 30 mg-zinc citrate 1.1 1 tab PO DAILY 05/22/24 12/12/24 History mg-elderberry 25 mg chewable tablet (Sambucus Elderberry) sitagliptin phosphate 100 mg 100 mg PO QDAY 07/07/24 12/12/24 History tablet (Januvia) thyroid (pork) 30 mg tablet 30 mg PO MOWEFR 07/21/24 12/12/24 Histor y ([place] Thyroid) glimepiride 2 mg tablet 3 mg PO BID 08/10/24 12/12/24 History ondansetron 4 mg disintegrating 4 mg PO Q8H PRN 08/12/24 12/12/24 Histor y tablet insulin glargine 100 unit/mL (3 20 unit subcut DAILY 12/12/24 12/12/24 H istory mL) subcutaneous pen (Lantus Solostar U-100 Insulin) spironolactone 25 mg tablet 25 mg PO BID 12/12/24 12/12/24 History Is last menstrual period known: No Post menopausal: Yes Patient : No : No Nurse's Note: FU medication consult [facility] Medical History First degree AV block Abnormal EKG Hypothyroidism Simple endometrial hyperplasia without atypia Encounter for screening examination for sexually transmitted disease HPV test positive Pelvic pain Thickened endometrium Wears glasses Post-menopausal Marijuana use Insulin dependent diabetes mellitus Thyroid disease Fatty liver High cholesterol Ulcerative colitis GERD (gastroesophageal reflux disease) Leg cramps History of echocardiogram Hypertension PONV (postoperative nausea and vomiting) Marijuana smoker Anxiety Depression Diabetes Former smoker Stroke/cerebrovascular accident (11/02/22) Former tobacco use Head injury Near syncope Elevated troponin Hyponatremia Prolonged QT interval Polyneuropathy Occlusion of left internal carotid artery Ischemic stroke 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 Irritable bowel syndrome Celiac disease Ulcerative colitis Muscle spasm Hypertension Vitamin D deficiency Diabetes mellitus Lumbar spinal stenosis Lumbar disc herniation with radiculopathy Ambulatory dysfunction Intractable back pain Surgical History History of back surgery (~2019) Hx of umbilical hernia repair S/P tubal ligation S/P cholecystectomy S/P tonsillectomy and adenoidectomy History of lumbar fusion History of lumbar discectomy Family History Mother Heart disease Alzheimers diseaseFather Heart disease Hypertension CAD (coronary artery disease) Myocardial infarction Thyroid disorder DiabetesSister Cancer Social History adopted: No household members: none number of children: 3 sexually active: Yes Smoking Status: Former smoker alcohol intake: never substance use type: marijuana and other details: Medical cannabis, usually daily. seatbelt use: always do you feel safe at home: Yes HPI TVHBS Details: LEIDY BLANCO is a 69 year old who presents for preop appointment. she has endometrial hyperplasia and is planning a hysterectomy for this. she has seen cardiology and is seeing her PCP thursday. she had an US that chowed a 7 cm uterus, d an c showed polyp with hyperplasia. denies any pelvic pain or pressure. she has had a history of stroke in the past,no vaginal bleeding, had d and c and hyperplasia diagnosed, not a candidate for hormonal therapy. needs to be medicallyoptimized prior to surgery with hypertension and diabetes. Female Reproductive History Menopausal Symptoms: No night sweats History 3 Elective abortions Hx Para 3 Spontaneous abortions Hx # Term Pregnancies Ectopic pregnancies Hx # Pregnancies Multiple births # of living children 3 Past Pregnancies Del. Date Name GA/Weeks Outcome Route Bth Weight Infant Gen Labor Lgth Anesthesia Del Locatn Provider FOB Unknown 1985 Alicia Unknown 1989 Zoey Unknown 1996 Jeffrey CLARKE Const Constitutional: Denies fatigue, night sweats, weight gain or weight loss ENT ENT: Reports system reviewed and no additional complaints, except as documented Cardio Card: Denies chest pain Resp Resp: Denies cough or dyspnea GI GI: Reports as per HPI; Denies abdominal pain, constipation, nausea or vomiting : Denies nipple discharge, urinary frequency, urinary incontinence, urinary hesitancy, urinary urgency, vaginal discharge, vaginal dryness, vaginal odor or vaginal pruritus Musc Musc: Reports arthralgias and back pain; Denies muscle weakness Skin Skin/Breast: Denies alopecia, change in hair, dry skin, breast mass, breast pain, breast skin changes or nipple discharge Neuro Neuro: Reports system reviewed and no additional complaints, except as documented Psych Psych: Reports system reviewed and no additional complaints, except as documented Endo Endo: Denies cold intolerance, excessive sweating, heat intolerance or polydipsia Antonio/Lymph Hematologic/Lymphatic: Denies easy bleeding, Denies easy bruising and Denies lymphadenopathy Exam Const General: cooperative, healthy appearing, comfortable, no acute distress and welldeveloped Orientation: alert [facility] Head: normal to inspection and normocephalic Ears: hearing grossly normal bilaterally and external ears normal Nose: external nose normal and nares normal Face and sinus: normal facial exam Neck Neck: normal visual inspection and no lymphadenopathy Thyroid: thyroid normal Chest Chest palpation & inspection: normal inspection of the chest Resp Effort & Inspection: normal respiratory effort Auscultation: clear to auscultation bilaterally Cardio Rate: regular rate Rhythm: regular rhythm Heart Sounds: S1 normal, S2 normal and murmur systolic GI Inspection: normal to inspection and non-distended Palpation: soft and no hepatosplenomegaly General: bladder normal to palpation External Female Exam: normal external appearance and normal appearance of the urethra Urethra: normal appearance of the urethra, normal palpation and no discharge Speculum Exam - Vagina: normal appearance of the vagina and normal vaginal discharge Speculum Exam - Cervix: normal appearance of the cervix and nontender Bimanual Exam- Vagina & Uterus: normal bimanual exam, uterine size normal, bladder normal to palpation, uterine shape normal, No tender, uterine mobility normal, consistency normal, normal palpation and non-tender Bimanual Exam- Adnexa, other: normal adnexae, adnexae mobile, no masses and normal Pelvic Support: normal Musc Other: gross motor intact no deficits, full bilateral strength Skin General: no rashes or lesions noted Neuro General: patient alert, patient awake, moves all extremities and no focal motor deficits Motor: muscle tone normal throughout Extrem General: normal to inspection and no pedal edema Psych Appearance: grossly normal Mental Status: mental status grossly normal Affect: normal affect Speech and Movement: speech and movement normal Coding Level of Care Code No Charge Diagnoses Endometrial hyperplasia without atypia N85.00 Assessment and Plan Assessment and Plan (1) Endometrial hyperplasia without atypia: Status: Acute Comment: not a hormonal candidate, plan tvhbs, s/p cardio and pcp clearance Plan After discussing the patient's diagnosis and treatment plan options, patient wishes to proceed withsurgical management. I have discussed with the patient the risks, benefits, and alternatives of theprocedure which include but are notlimited to risks of anesthesia, bleeding, infection, possible damage to bowel, bladder, or surrounding vasculature which could lead to additional surgery to evaluate any complications. Patient agrees to procedure and wishes to proceed. ACOG/uptodate references given for additional information regarding procedure. last dose plavix last UPDATE- I have seen the patient and performed any clinically relevant updates to the history and physical exam. Anushka Hall MD 12/27/24721 Cosigner Signature (if applicable): CC: Dr. Preet Farrar, DO; Dr. Anushka Hall MD~ Signed [facility]04-01-2025 [facility]03-26-2025 Telephone encounter Note* Telephone Encounter - Donna Kimble MA - 12/21/2024 10:49 AM EDT No PA needed covered. [facility] spoke to [facility]VP[facility] who did for brand lantus and is covered. Patient was notified Donna Kimble MA [facility]03-26-2025 Miscellaneous Notes* Telephone Encounter - Donna Kimble MA - 12/21/2024 10:49 AM EDT No PA needed covered. Called [facility] and spoke to tech who did for brand lantus and is covered. Patient was notified Donna Kimble MA * Telephone Encounter - Chelo Prasad RN - 12/21/2024 9:12 AM EDT Patient calling in and states she needs a prior authorization for her lantus insulin, as ordered 10/07/24, per [facility]. Prior authorization requested for the following medication: Medication: insulin glargine (lantus solostar) 100 unit/mL Provider: Dr. Farrar Insurance Company Name: [facility] Medicare Pharmacy Name: [facility] Telephone number: [phone] Please call patient once an update has been received. Chelo Prasad RN [facility] Telephone encounter Note * Telephone Encounter - Chelo Prasad RN - 12/21/2024 9:12 AM EDT Patient calling in and states she needs a prior authorization for her lantus insulin, as ordered 10/07/24, per [facility]. Prior authorization requested for the following medication: Medication: insulin glargine (lantus solostar) 100 unit/mL Provider: Dr. Farrar Insurance Company Name: [facility] Medicare Pharmacy Name: [facility] Telephone number: [phone] Please call patient once an update has been received. Chelo Prasad RN [facility]03-24-2025 Telephone encounter Note* Telephone Encounter - Annmarie Canada RN - 12/19/2024 5:57 PM EDT Pt called and is notified of providers message and instructions. Pt voices understanding. She will call OBGYNs office to see how long she wants her to hold it. Annmarie Canada RN [facility]03-24-2025 Miscellaneous Notes* Telephone Encounter - Annmarie Canada RN - 12/19/2024 5:57 PM EDT Pt called and is notified of providers message and instructions. Pt voices understanding. She will call OBGYNs office to see how long she wants her to hold it. Annmarie Canada RN * Telephone Encounter - Preet Farrar DO - 12/19/2024 5:08 PM EDT Okay to hold Plavix for 3-5 days, depending on surgeon preference Preet Farrar DO * Telephone Encounter - Josie Starks RN - 12/19/2024 2:49 PM EDT Patient calls to ask about holding Plavix for upcoming hysterectomy. Patient reports Dr. Hall was leaning towards holding medication for 3 days but wanted patient to check with PCP to verify the length of time provider would recommend that she hold Plavix. Patient requests call back at [phone]. Josie Starks RN [facility] Telephone encounter Note * Telephone Encounter - Preet Farrar DO - 12/19/2024 5:08 PM EDT Okay to hold Plavix for 3-5 days, depending on surgeon preference Preet Farrar DO [facility]03-24-2025 Telephone encounter Note* Telephone Encounter - Josie Starks RN - 12/19/2024 2:49 PM EDT Patient calls to ask about holding Plavix for upcoming hysterectomy. Patient reports Dr. Hall was leaning towards holding medication for 3 days but wanted patient to check with PCP to verify the length of time provider would recommend that she hold Plavix. Patient requests call back at [phone]. Josie Starks RN [facility]03-19-2025 Telephone encounter Note* Telephone Encounter - Jacqueline Candelario APRN.DEREK - 12/14/2024 5:40 PM EDT The following approved medication requests have been transmitted electronically. Requested Prescriptions Signed Prescriptions Disp Refills dulaglutide (TRULICITY) 0.75 mg/0.5 mL pen injector 6 mL 2 Sig: Inject 0.75 mg subcutaneously one time a week. Authorizing Provider: JACQUELINE CANDELARIO APRN.CNP [facility]03-19-2025 Miscellaneous Notes* Telephone Encounter - Jacqueline Candelario APRN.CNP - 12/14/2024 5:40 PM EDT The following approved medication requests have been transmitted electronically. Requested Prescriptions Signed Prescriptions Disp Refills dulaglutide (TRULICITY) 0.75 mg/0.5 mL pen injector 6 mL 2 Sig: Inject 0.75 mg subcutaneously one time a week. Authorizing Provider: JACQUELINE CANDELARIO APRN.CNP * Telephone Encounter - Sahara Mejia LPN - 12/14/2024 5:36 PM EDT Pt. [facility]. Insurance won't pay for Victoza. * Telephone Encounter - Jacqueline Candelario APRN.CNP - 12/14/2024 5:12 PM EDT Ok to use generic form. Yes, I would wait to start new medication until after recovery of surgery. Thank you, Jacqueline Candelario APRN.ENGINEERING TEST SPECIALIST * Telephone Encounter - Chelo Prasad RN - 12/14/2024 3:23 PM EDT Patient was seen by Dr. Farrar today. Reports Victoza was ordered for her today and her pharmacy is unable to get it. Asking if okay to use the generic version? Wants PCP opinion. Or, should she switch to Trulicity? Having hysterectomy on 12/27. Should she wait until after the procedure to start any of this new medication? Please call patient with reply. Chelo Prasad RN [facility] Telephone encounter Note * Telephone Encounter - Sahara Mejia LPN - 12/14/2024 5:36 PM EDT Pt. [facility]. Insurance won't pay for Victoza. [facility]03-19-2025 Telephone encounter Note* Telephone Encounter - Jacqueline Candelario APRN.ENGINEERING TEST SPECIALIST - 12/14/2024 5:12 PM EDT Ok to use generic form. Yes, I would wait to start new medication until after recovery of surgery. Thank you, Jacqueline Candelario APRN.ENGINEERING TEST SPECIALIST [facility]03-19-2025 Telephone encounter Note* Telephone Encounter - Chelo Prasad RN - 12/14/2024 3:23 PM EDT Patient was seen by Dr. Farrar today. Reports Victoza was ordered for her today and her pharmacy is unable to get it. Asking if okay to use the generic version? Wants PCP opinion. Or, should she switch to Trulicity? Having hysterectomy on 12/27. Should she wait until after the procedure to start any of this new medication? Please call patient with reply. Chelo Prasad RN [facility]03-19-2025 NoteHNO ID: [id number] Author: PREET FARRAR, DO Service: ? Author Type: Physician Type: Progress Notes Filed: 12/14/2024 12:07 Note Text: Patient presents with: Pre-Op Exam: hysterectomy HPI: Leidy Blanco is a 69 year old female who presents to the office today for review of health conditions. Concerns today: She has recently had elevated blood glucose readings from 30s to 250s and sometimes rarely as high as the 320s range. She is taking lantus 22 units a day, amaryl as well as januvia medication daily. She was on Ozempic in the past but when dose was increased to 2 mg/week she suffered from acute pancreatitis for which she was hospitalized. She is willing to try an alternative GLP 1 agonist medication if able to get this approved by insurance. She has upcoming MEREDITH with Dr. Hall She denies any CP or dyspnea or dizziness/LH or edema She is exercising regularly with walking on the treadmill daily Ms. Blanco has past history of diabetes. Since our last visit she denies excessive thirst or increased frequency of urination, chest pain or dyspnea , new or unusual visual symptoms, and low sugar/hypoglycemic reactions. Follows a diabetic diet most of the time. She is compliant with medication(s) and is tolerating med(s) without any side effects. She reports checking her glucose on a three times a day schedule with sugars in the fasting see above range. Patient's last HgA1C was Hemoglobin A1C (%) Date Value 10/05/2024 7.3 05/17/2024 6.9 11/13/2021 6.3 04/16/2021 6.3 Hemoglobin A1C (POCT) (%) Date Value 01/06/2024 6.5 ) Last Ophthalmology exam was within the past 12 months Ms. Blanco reports history of hyperlipidemia. Current therapy includes atorvastatin (Lipitor) 80 mg. Denies side effects of muscle weakness or achiness. Her most recent lipid panels are reviewed. Cholesterol, Total (mg/dL) Date Value 10/05/2024 122 04/16/2021 193 HDL Cholesterol (mg/dL) Date Value 10/05/2024 65 04/16/2021 58 LDL Cholesterol (mg/dL) Date Value 10/05/2024 36 04/16/2021 91 Triglyceride (mg/dL) Date Value 10/05/2024 105 04/16/2021 222 Ms. Blanco indicates a history of hypertension and states that she is feeling well and denies any symptoms referable to elevated blood pressure. Specifically denies headache, chest pain, palpitations, dyspnea, and peripheral edema. Patient denies any side effects of her medication(s) and is compliant with their regimen. Last 3 Encounter BP Readings: Date: BP: 12/14/2024 136/70 11/11/2024 124/74 10/07/2024 116/60 She watches her diet for sodium, low fat and low cholesterol most of the time. She does not check BP's generally. Leidy likes to exercise by walking on treadmill. PAST MEDICAL HISTORY Diagnosis Date Aortic stenosis, [...] date: 11/02/2002 Quit date: 11/02/2022 Years since quittin.1 Smokeless tobacco: Never Substance Use Topics Alcohol [...] Itching Sulfa (Sulfonamide * Rash Current Meds: spironolactone (ALDACTONE) 25 mg tablet Take 25 mg by mouth once daily. (Patient taking differently: Take 25 mg by mouth two times a day.) liraglutide (VICTOZA) 0.6 mg/ 0.1 ml subcutaneous pen injector Inject 0.6 mg subcutaneously once daily. clopidogrel (PLAVIX) 75 mg tablet Take 1 tablet by mouth once daily. atorvastatin (LIPITOR) 80 mg tablet Take 1 tablet by mouth once daily. carvedilol (COREG) 6.25 mg tablet Take 1 tablet by mouth two times a day with meals. losartan (COZAAR) 25 mg tablet Take 1 tablet by mouth every afternoon. ARMOUR THYROID 30 mg tablet Take 1 tablet by mouth ever (more content not included)...[facility]03-19-2025 History of Present illness Narrative* Preet Farrar Keshia, DO - 12/14/2024 12:02 PM EDT Patient presents with: Pre-Op Exam: hysterectomy HPI: Leidy Blanco is a 69 year old female who presents to the office today for review of health conditions. Concerns today: She has recently had elevated blood glucose readings from 30s to 250s and sometimes rarely as high as the 320s range. She is taking lantus 22 units a day, amaryl as well as januvia medication daily. She was on Ozempic in the past but when dose was increased to 2 mg/week she suffered from acute pancreatitis for which she was hospitalized. She is willing to try an alternative GLP 1 agonist medication if able to get this approved by insurance. She has upcoming MEREDITH with Dr. Hall She denies any CP or dyspnea or dizziness/LH or edema She is exercising regularly with walking on the treadmill daily Ms. Blanco has past history of diabetes. Since our last visit she denies excessive thirst or increased frequency of urination, chest pain or dyspnea , new or unusual visual symptoms, and low sugar/hypoglycemic reactions. Follows a diabetic diet most of the time. She is compliant with medication(s) and is tolerating med(s) without any side effects. She reports checking her glucose on a three timesa day schedule with sugars in the fasting see above range. Patient's last HgA1C was Hemoglobin A1C (%) Date Value 10/05/2024 7.3 05/17/2024 6.9 11/13/2021 6.3 04/16/2021 6.3 Hemoglobin A1C (POCT) (%) Date Value 01/06/2024 6.5 ) Last Ophthalmology exam was within the past 12 months Ms. Blanco reports history of hyperlipidemia. Current therapy includes atorvastatin (Lipitor) 80 mg. Denies side effects of muscle weakness or achiness. Her most recent lipid panels are reviewed. Cholesterol, Total (mg/dL) Date Value 10/05/2024 122 04/16/2021 193 HDL Cholesterol (mg/dL) Date Value 10/05/2024 65 04/16/2021 58 LDL Cholesterol (mg/dL) Date Value 10/05/2024 36 04/16/2021 91 Triglyceride (mg/dL) Date Value 10/05/2024 105 04/16/2021 222 Ms. Blanco indicates a history of hypertension and states that she is feeling well and denies any symptoms referable to elevated blood pressure. Specifically denies headache, chest pain, palpitations, dyspnea, and peripheral edema. Patient denies any side effects of her medication(s) and is compliant with their regimen. Last 3 Encounter BP Readings: Date: BP: 12/14/2024 136/70 11/11/2024 124/74 10/07/2024 116/60 She watches her diet for sodium, low fat and low cholesterol most of the time. She does not check BP's generally. Leidy likes to exercise by walking on treadmill. PAST MEDICAL HISTORY Diagnosis Date Aortic stenosis, [...] date: 11/02/2002 Quit date: 11/02/2022 Years since quittin.1 Smokeless tobacco: Never Substance Use Topics Alcohol [...] Itching Sulfa (Sulfonamide * Rash Current Meds: spironolactone (ALDACTONE) 25 mg tablet Take 25 mg by mouth once daily. (Patient taking differently: Take 25 mg by mouth two times a day.) liraglutide (VICTOZA) 0.6 mg/ 0.1 ml subcutaneous pen injector Inject 0.6 mg subcutaneously once daily. clopidogrel (PLAVIX) 75 mg tablet Take 1 tablet by mouth once daily. atorvastatin (LIPITOR) 80 mg tablet Take 1 tablet by mouth once daily. carvedilol (COREG) 6.25 mg tablet Take 1 tablet by mouth two times a day with meals. losartan (COZAAR) 25 mg tablet Take 1 tablet by mouth every afternoon. ARMOUR THYROID 30 mg tablet Take 1 tablet by mouth every Thursday, Thursday, and Thursday. In the morning. (Take this is addition to the 120 mg armor thyroid) insulin glargine (LANTUS SOLOSTAR U-100 INSULIN) 100 unit/mL (3 mL) Inject 20 Units subcutaneously daily at bedtime. (Patient taking differently: Inject 20 Units subcutaneously every morning.) glimepiride (AMARYL) 2 mg tablet Take 1 tablet by mouth two times a day with meals. pantoprazole DR (PROTONIX) 40 mg tablet Take 1 tablet by mouth once daily. ARMOUR THYROID 120 mg tablet Take 1 tablet PO daily in AM blood sugar diagnostic (ONETOUCH VERIO TEST STRIPS) test strip Test blood sugar(s) 4 times daily. Dx: Type 2 DM - Uncontrolled E11.65 Insulin: Yes dexAMETHasone (DECADRON) 1 mg tablet Take the tablet at 11 pm and go for labs the next morning on fasting at 8 am Insulin [place], Disposable, (BD ULTRA-FINE MARIA T PEN NEEDLE) 32 gauge x 5/32 Use one needle for each dose. 1/day. ergocalciferol 50,000 unit capsule (VITAMIN D2, DRISDOL) Take 1 capsule by mouth two times a week. blood sugar diagnostic (BLOOD GLUCOSE TEST) test strip Test blood sugar(s) 2 times daily. Dx: Type 2 DM - Uncontrolled Insulin: No flash glucose scanning reader (FREESTYLE [...] Type 2 DM - Uncontrolled Insulin: No Review of Systems: The remainder of the review of systems is negative. PE: 12/14/24 1102 BP: 136/70 Pulse: 64 Resp: 16 Temp: 36.1 C (97 F) TempSrc: Left Tympanic Weight: 84.4 kg (186 lb) Height: 153 cm (5' 0.24) Gen: A&O, NAD, non-toxic appearing, cooperative HEENT: NT/AC, PERRLA, EOMs intact b/l, nares clear and patent b/l, pharynx without erythema, exudate or lesions. MMM, Uvula midline. Neck: supple, No cervical LAD, no thyromegaly, no carotid bruits CV: RRR, normal S1 and S2, 2/6 HSM soft blowing murmurs, no gallops, no rubs, [...] no edema, normal pulses ASSESSMENT/PLAN: 1. Uncontrolled type 2 diabetes mellitus with hyperglycemia (HCC) - ICD9: 250.02, ICD10: E11.65 (primary diagnosis) - Uncontrolled - d/c Januvia, start on Victoza - Blood glucose monitoring on a three times daily schedule - Counseled on healthy diet and regular exercise - Discussed need for and benefit of weight loss. BMI 36.04 kg/(m^2) - LIRAGLUTIDE 0.6 MG/0.1 ML (18 MG/3 ML) SUBCUTANEOUS PEN INJECTOR 2. Hyperlipidemia, mixed - ICD9: 272.2, ICD10: E78.2 - Controlled - Continue current medications - Counseled on healthy diet and regular exercise 3. Vitamin B12 deficiency - ICD9: 266.2, ICD10: E53.8 Continue supplement 4. Vitamin D deficiency - ICD9: 268.9, ICD10: E55.9 Continue supplement 5. Essential hypertension, benign - ICD9: 401.1, ICD10: I10 - Controlled - Continue current medications - Recommend home blood pressure monitoring, to bring results to next visit - Encouraged sodium restriction, DASH or Mediterranean diet - Recommend regular aerobic exercise 6. Acquired hypothyroidism - ICD9: 244.9, ICD10: E03.9 - Instructed patient on importance of taking on an empty stomach either first thing in the morning or at bedtime. 7. Pre-op examination - ICD9: V72.84, ICD10: Z01.818 She is cleared for MEREDITH and potential BSO by Dr. 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 Discussed risks, benefits, alternatives, and potential side effects of medications. Patient expressed understanding and agreed with the plan. Preet Farrar DO [address] [place] [address] documented in this encounter[facility]03-19[facility] Instructions* Patient Instructions* Preet Farrar DO - 12/14/2024 11:45 AM EDT Start the Victoza 0.6 mg once a day for blood sugar control Stop the Januvia when you start this for your diabetes documented in this encounterPark[facility]03-17-[facility]25 Evaluation note* Diagnosis Onset Date Resolution Status Admit Date Endometrial hyperplasia with out atypia acute December 12, 2024 10:49am Endometrial hyperplasia with out atypia acute December 27, 2024 8:20am History of total vaginal hysterectomy (TVH) acute December 27 8:20am Atherosclerotic vascular disease chronic December 27, 2024 8:20am Carotid artery disease chronic Ap 2024 8:20am Dyslipidemia chronic December 27, 025 8:20am History of CVA (cerebrovascu lar accident) chronic December 27, 2024 8:20am Hypertension chronic December 27, 025 8:20am Renal artery stenosis chronic Dec 8:20am Endometrial hyperplasia with out atypia acute January 09, 2025 10:57am Aortic valve stenosis with insufficiency chronic January 26, 2025 2: 04pm Atherosclerotic vascular disease chronic January 26, 2025 2: 04pm Carotid artery disease chronic Ma 2024 2:04pm Diabetes chronic January 26, 2025 2:04pm Dyslipidemia chronic January 26 2:04pm History of CVA (cerebrovascu lar accident) chronic January 26, 2025 2: 04pm Hypertension chronic January 26 2:04pm Hypothyroidism chronic January 26, 025 2:04pm Renal artery stenosis chronic January 26, 2025 2:04pm Encounter for postoperative care noneactive February 06, 2025 10:49am [facility] Work Phone: 1(857) 998-208203-06-2025 Telephone encounter Note* Telephone Encounter - Yesi Kitchen RN - 12/01/2024 11:26 AM EST Pt states she needs this refill by the Thursday the . [facility] had her ask for a refill on her Carvedilol instead of her Clopidogrel. The patient has been identified by name and date of : Yes Caregiver verified no other encounters exist for this prescription request: Yes Caregiver confirmed with patient/requestor that no other refills are due, in the near future, with this provider at this time: Yes The last office visit in the department: 10/07/2024 Does the patient have a future office visit with this provider/department: Yes 12/14/2024 Requested Prescriptions Pending Prescriptions Disp Refills clopidogrel (PLAVIX) 75 mg tablet 90 tablet 1 Sig: Take 1 tablet by mouth once daily. Yesi Kitchen RN December 01, 2024 11:26 AM [facility]03-06-[facility] Miscellaneous Notes* Telephone Encounter - Yesi Kitchen RN - 12/01/2024 11:26 AM EST Pt states she needs this refill by the Thursday the . [facility] had her ask for a refill on her Carvedilol instead of her Clopidogrel. The patient has been identified by name and date of : Yes Caregiver verified no other encounters exist for this prescription request: Yes Caregiver confirmed with patient/requestor that no other refills are due, in the near future, with this provider at this time: Yes The last office visit in the department: 10/07/2024 Does the patient have a future office visit with this provider/department: Yes 12/14/2024 Requested Prescriptions Pending Prescriptions Disp Refills clopidogrel (PLAVIX) 75 mg tablet 90 tablet 1 Sig: Take 1 tablet by mouth once daily. Yesi Kitchen RN December 01, 2024 11:26 AM documented in this encounterPark[facility]03-04-2025 Telephone encounter Note * Telephone Encounter - Suzanna Coffey RN - 11/29/2024 12:12 PM EST The patient has been identified by name and date of : Yes Caregiver verified no other encounters exist for this prescription request: Yes Caregiver confirmed with patient/requestor that no other refills are due, in the near future, with this provider at this time: Yes The last office visit in the department: 10/07/2024 Does the patient have a future office visit with this provider/department: Yes 12/14/2024 Requested Prescriptions Pending Prescriptions Disp Refills atorvastatin (LIPITOR) 80 mg tablet 90 tablet 1 Sig: Take 1 tablet by mouth once daily. carvedilol (COREG) 6.25 mg tablet 180 tablet 3 Sig: Take 1 tablet by mouth two times a day with meals. Suzanna Coffey RN November 29, 2024 12:13 PM [facility]03-04-[facility] Miscellaneous Notes* Telephone Encounter - Suzanna Coffey RN - 11/29/2024 12:12 PM EST The patient has been identified by name and date of : Yes Caregiver verified no other encounters exist for this prescription request: Yes Caregiver confirmed with patient/requestor that no other refills are due, in the near future, with this provider at this time: Yes The last office visit in the department: 10/07/2024 Does the patient have a future office visit with this provider/department: Yes 12/14/2024 Requested Prescriptions Pending Prescriptions Disp Refills atorvastatin (LIPITOR) 80 mg tablet 90 tablet 1 Sig: Take 1 tablet by mouth once daily. carvedilol (COREG) 6.25 mg tablet 180 tablet 3 Sig: Take 1 tablet by mouth two times a day with meals. Suzanna Coffey RN November 29, 2024 12:13 PM documented in this encounterParkwood Hospital02-14-2025 Instructions* Patient Instructions* Bean Isaac MD - 11/11/2024 10:16 AM EST Please do thyroid labs at your convenience COLLECTING URINE FOR 24 HOURS: 1. Best done the morning of one day to the morning of the next day ( two consecutive mornings). 2. Imperative that you arise from bed at the exact same time on Day 1 and Day 2. 3. When you arise on Day 1 you will have to urinate. This goes into the toilet and is flushed away. 4. Every time from then on for the remainder of Day 1 and at night Day 1 to Day 2, every drop of urine that you pass must go into the container that we will provide for you. 5. When you arise on Day 2 you will also have to urinate. This goes into the container and completes the urine collection. 6. The container should be kept refrigerated until it is turned in to the laboratory. 7. Bring the completed urine collection container to the laboratory as soon as possible. Continue same dose of medications for diabetes as per your preference for now. We shall discuss further steps if any of the other hor ones are abnormal documented in this encounterParkwood Hospital02-14-2025 NoteHNO ID: [id number] Author: MADIE BRUCE MA Service: ? Author Type: Death Claim Examiner Type: Progress Notes Filed: 11/11/2024 18:16 Note Text:[facility]02-14-2025 History of Present illness Narrative* Madie Bruce MA - 11/11/2024 9:56 AM EST Images from the original note were not included. * Bean Isaac MD - 11/11/2024 9:46 AM EST [facility] Follow up note Referred by: PCP- Preet Farrar DO History of Present illness: Leidy Blanco is a 69 year old female here today for evaluation of Type 2 DM, she also has a PMH ofHTN, HLD, CVA, Obesity class I, Hypothyroidism, Celiac disease. She reports of a recent back surgery ending up in paralysis biut now she is walking and back onto exercise -Initially diagnosed: 15 years ago. On regular blood work -Length of time on oral medications before switching to insulin: 13 years, until Ozempic, 15 years until lantus -Duration of insulin use: few months now Complications: Cardiovascular -- Yes HTN, HLD, in 2021 she had a Stroke Statin Use -- Yes, atorvastatin 80 mg daily Retinopathy -- No Last JUAN/Retina Eval: 03/2024 Nephropathy -- Yes NICOLE/ARB Use -- Yes [...] past . Diabetes Medications -Current regimen: lantus 18 units daily in the morning (started using insulin in March 2024, increased to 18 units 2 weeks ago), Sitagliptin 100 mg daily, glimepiride 2 mg daily (she herself decreasedby half pil 2 weeks ago from 2.5 mg which also she increased by herself) -Misses doses: None -Adverse medication effects: no -Rotating injection sites: yes -Previously Used DM Meds: Yes Metformin - GI upset Jardiance- Yeast infection She was on Ozempic 1 mg for more than 1 year, when it was increased to 2 mg she was hospitalized due to vomiting, diarrhea and was diagnosed with Gastroparesis assumed to be due to the medication . Blood sugars -Self monitoring of blood sugar via fingerstick: 4 x daily Insurance did not approve CGM. She brought glucometer -Brought blood glucose log for review: yes Oct 28, 2024 to nov 11, 2024 Avg B mg/dl Highest 285 mg/dl, lowest 102 mg/dl -BG log reviewed: --Fastin-216 --Prelunch: 157-213 --Predinner: 140-215 --Bedtime: 165-225 Hypoglycemia -Hypoglycemic episodes: denied any lows, nothing lower than 102 mg/dl as per glucometer readings for the last 15 days -Frequency and timing of hypoglycemia: n/a -Hypoglycemia awareness: n/a Concerns reported today: She denied any hyperglycemic symptoms today. After I told about side effect of weight gain with glimepiride and insulin dose increase, she does report gaining about 5 to 6 lbs in the last 2 weeks after increase glimepiride by 1/2 pill Last time I discussed with her that glimepiride can cause weight gain, as well as insulin. She possibly reduced dose of glimepiride due to this, and since her BG has been higher than before atleast from what she reported on last visit as her BG readings, no significant change in Hba1c She did not do the Dexamethasone suppression test due to itchy sensation when she takes prednisone and would like to avoid that allerrgic reaction . She would like to She has a hx of smoking that she quit but she is concerned of weight gain despite not eating much carbs . Lifestyle -Exercise: 30 mins on [place] daily -Diet: Breakfast: 3 eggs, 1 slice of gluten free bread Lunch: yogurt with 3 gms of carbs, either cheese or chicken sausage, half orange or small cup of fruit Dinner: salmon, chicken strips with 3 gms of carbs, broccoli or brussels sprouts . Blood pressure -Today BP 124/74 -Current antihypertensive therapy: carvedilol 6.25 mg BID, [...] swings Past Medical History PAST MEDICAL HISTORY Diagnosis Date Aortic stenosis, moderate 08/2019 Benign hypertensive heart disease Celiac disease Diabetes mellitus without mention of complication Diabetes mellitus Fatty liver Grave's disease IBS (irritable bowel syndrome) Medical marijuana use has card Ulcerative colitis, unspecified Vitamin D deficiency Past Surgical History PAST SURGICAL HISTORY Procedure Laterality [...] date: 11/02/2002 Quit date: 11/02/2022 Years since quittin.0 Smokeless tobacco: Never Substance Use Topics Alcohol use: Yes Drug use: Yes Types: Marijuana Allergies ALLERGIES Allergen Reactions Asa [Salicylates] Hives, GI Upset As a child Gluten Intolerance Metformin GI Upset, Itching Prednisone Itching Sulfa (Sulfonamide * Rash Current Medications Current Outpatient Medications Medication Sig Dispense Refill losartan (COZAAR) 25 mg tablet Take 1 tablet by mouth every afternoon. ARMOUR THYROID 30 mg tablet Take 1 tablet by mouth every Thursday, Thursday, and Thursday. In the morning. (Take this is addition to the 120 mg armor thyroid) 36 tablet 1 insulin glargine (LANTUS SOLOSTAR U-100 INSULIN) 100 unit/mL (3 mL) Inject 20 Units subcutaneously daily at bedtime. (Patient taking differently: Inject 20 Units subcutaneously every morning.) 27 mL 3 glimepiride (AMARYL) 2 mg tablet Take 1 tablet by mouth two times a day with meals. [address] (PROTONIX) 40 mg tablet Take 1 tablet by mouth once daily. 30 tablet 5 ARMOUR THYROID 120 mg tablet Take 1 tablet PO daily in AM 90 tablet 1 SITagliptin phosphate (JANUVIA) 100 mg tablet Take 1 tablet by mouth once daily. 90 tablet 1 blood sugar diagnostic (ONETOUCH VERIO TEST STRIPS) test strip Test blood sugar(s) 4 times daily. Dx: Type 2 DM - Uncontrolled E11.65 Insulin: Yes 150 Strip 11 Insulin [place], Disposable, (BD ULTRA-FINE MARIA T PEN NEEDLE) 32 gauge x 5/32 Use one needle for each dose. 1/day. 100 Each 11 atorvastatin (LIPITOR) 80 mg tablet Take [...] two times a week. 24 capsule 3 spironolactone (ALDACTONE) 25 mg tablet Take 25 [...] 2 DM - Uncontrolled E11.65 Insulin: No 100 Each 11 dexAMETHasone (DECADRON) 1 mg tablet Take the tablet at 11 pm and go for labs the next morning on fasting at 8 am 1 tablet 0 blood sugar diagnostic (BLOOD GLUCOSE TEST) test strip Test blood sugar(s) 2 times daily. Dx: Type 2 DM - Uncontrolled Insulin: No 100 Strip 11 flash glucose scanning reader (FREESTYLE TARA 2 READER) 1 Device as directed. Type 2 diabetes uncontrolled, no insulin (Patient not taking: Reported on 01/06/2024) 1 Each 0 No current facility-administered medications for this visit. Vitals: There were no vitals filed for this visit. Physical Exam GENERAL: Well nourished, obese, well [...] normal strength, no tremor OTHER: Acanthosis None Labs: Recent Labs 11/13/21 0755 11/13/21 0756 02/19/22 1238 03/25/22 1200 04/04/22 1000 04/04/22 1004 06/24/22 1003 08/26/22 1105 09/08/22 0853 11/05/22 1034 11/05/22 1504 12/02/22 0821 03/10/23 0758 05/05/23 0733 06/15/23 0831 07/30/23 1318 09/08/23 1122 11/13/23 0931 11/16/23 1156 03/21/24 1120 05/03/24 1146 05/17/24 0743 07/15/24 1045 10/05/24 0728 11/07/24 1038 11/07/24 1040 ALT 8 -- 13 -- -- -- -- -- 13 -- -- 14 21 -- 15 -- -- 18 -- 16 -- 12 -- 15 -- -- AST 14 -- 16 -- -- -- -- -- 17 -- -- 14 23 -- 16 -- -- 19 -- 27 -- 15 -- 18 -- -- UCRR -- 19.5* -- -- -- 46.8 8.8* 84.7 -- -- 16.2* -- -- 55.6 -- -- -- 18.0* -- -- 12.5* -- -- -- --64.2 UALBR -- <12.0 -- -- -- -- -- -- -- -- <12.0 -- -- -- -- -- -- <12.0 -- -- -- -- -- -- -- -- UALBCR -- Not calculated -- -- -- -- -- -- -- -- -- -- -- -- -- -- -- -- -- -- -- -- -- -- -- -- TSH 2.660 -- -- -- -- -- -- -- -- -- -- -- 0.309 -- 0.009* -- 0.119* 0.324 0.882 1.890 -- 1.960 0.218* 1.550 -- -- TPROT 7.3 -- 7.2 -- -- -- -- -- 7.5 -- -- 6.9 7.4 -- 6.9 -- -- 7.5 -- 7.4 -- 6.9 -- 6.8 -- -- ALB 4.5 -- 4.4 4.5 4.5 -- 4.3 4.3 4.5 4.3 -- 4.2 4.5 4.1 4.1 -- -- 4.6 -- 4.3 4.5 4.3 -- 3.9 4.2 -- CA 9.6 -- 10.1 10.6* 9.9 -- 9.9 9.6 10.0 9.8 -- 9.6 10.0 9.9 9.7 -- -- 10.1 -- 10.4* 10.0 9.6 -- 9.6 9.8 -- TBILI 0.4 -- 0.2 -- -- -- -- -- 0.6 -- -- 0.5 0.6 -- 0.6 -- -- 0.4 -- 0.4 -- 0.6 -- 0.4 -- -- ALKPHOS 114 -- 104 -- -- -- -- -- 99 -- -- 96 110 -- 102 -- -- 103 -- 99 -- 86 -- 92 -- -- GLUC 106* -- 134* 128* 192* -- 145* 151* 197* 221* -- 192* 204* 156* 182* -- -- 179* -- 192* 138* 176* -- 170* 237* -- BUN 8 -- 14 15 14 -- 15 16 17 13 -- 12 13 13 12 -- -- 12 -- 17 18 17 -- 15 18 -- CREAT 0.54* -- 0.52* 0.53* 0.51* -- 0.58 0.58 0.63 0.51* -- 0.54* 0.62 0.56* 0.58 -- -- 0.53* -- 0.67 0.68 0.67 -- 0.64 0.72 -- NA 137 -- 138 137 133* -- 138 138 134* 135* -- 137 134* 135* 137 -- -- 139 -- 135* 137 136 -- 138 134* -- K 3.8 -- 4.1 4.7 4.4 -- 4.9 4.6 4.7 4.3 -- 5.0 5.0 4.6 4.5 3.9 -- 3.7 -- 4.9 4.7 4.8 -- 4.4 4.6 -- CHLOR 98 -- 98 98 98 -- 101 101 97 102 -- 102 96* 101 99 -- -- 100 -- 98 100 100 -- 104 98 -- CO2 26 -- 25 21* 22 -- 24 24 28 23 -- 27 27 25 26 -- -- 27 -- 21* 27 27 -- 23 25 -- ANION 13 -- 15 18 13 -- 13 13 9 10 -- 8* 11 9 12 -- -- 12 -- 16* 10 9 -- 11 11 -- EGFROTH >60 -- 103 102 103 -- 100 100 97 102 -- 101 98 100 99 -- -- 101 -- 95 95 95 -- 96 91 -- B12 366 -- -- -- -- -- -- -- -- -- -- 1,636* -- -- -- -- 1,913* -- -- -- -- -- -- -- -- -- Recent Labs 11/13/21 0755 02/19/22 1238 09/08/22 0853 12/02/22 0821 03/10/23 0758 06/15/23 0831 09/08/23 1122 11/13/23 0931 11/16/23 1156 01/06/24 1133 05/17/24 0743 10/05/24 0728 TG -- -- 168* 90 91 113 -- 99 -- -- 79 105 CHOL -- -- 222* 95 107 100 -- 121 -- -- 115 122 HDL -- -- 60 53 61 55 -- 77 -- -- 71 65 VLDL -- -- 34* 18 18 23 -- 20 -- -- 16 21 LDL -- -- 128* 24 28 -- 24 -- -- 28 36 FASTTIME -- -- 9 12 12 12.5 -- 12 -- -- 12 10 TCHDL -- -- 3.70 1.79 1.75 1.82 -- 1.57 -- -- 1.62 1.88 LDLHDL -- -- 2.13 0.45 0.46 0.40 -- 0.31 -- -- 0.39 0.55 NONHDL -- -- 162* 42 46 45 -- 44 -- -- 44 57 HBA1C 6.3* 6.5* 7.1* 7.3* 7.8* 6.7* 6.4* 6.5* 6.4* 6.5* 6.9* 7.3* HBA0 134 140 157 163 177 146 137 140 137 -- 151 163 B12 366 -- -- 1,636* -- -- 1,913* -- -- -- -- -- Hba1c 7.2% on 07/21/24, 7.3% on 10/25/2024 TSH 0.143 (0.358-3.74) Assessment and Plan 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 Patient was in tears due to weight gain not being helped with diet. Discussed checking thyroid labs - TSH, free T4 with EQ (recent labs with normal TSH and low Free T4). She was recommended to do DST on last appointment which she did not complete due to concerns with prednisone causing feeling of insect crawling on her skin. Plan: - As she does not want to increase doses of lantus or Glimepiride while she is on max dose of Januvia and cannot use the medications that can help with weight loss due to intolerance, we discussed she will be continuing same medications but adjusting diet and physical activity to avoid increasing doses of medications, as rgegory as possible - also discussed it is better to discuss with her PCP or me before she increases the doses of medications, and she reports she has notified Dr. Farrar, her PCP about these changes - encouraged continuing BG check as is - Encouraged continuing diet and exercise - labs uptodate for diabetes complication prevention - she is update with eye exam #Blood Pressure -Today BP 124/74 -Currently antihypertensive regimen: on coreg and spironolactone -managed by PCP #Dyslipidemia, hx of stroke - on 80 mg atorvastatin daily -managed by PCP #Obesity Class I with serious comobidity - could not tolerate GLP-1 agonists and is trying weight loss with lifestyle modifications- diet and exercise - will check DST for weight gain irrespective of diet and physical activity - instructions given verbally and in writing but this was not done. - She was hence recommended to do 24 hr urine cortisol, now says she wants to do DST and be done with it I gave instructions to do 24 hr urine collection for cortisol, and if abnormal will have to do morelabs to locate source. She had lot of questions about treatment for this, which I briefly explainedincluding surgery as first choice, and medications, but reassured that I will explain if this test will be abnormal #Hypothyroidism: - Currently on armour thyroid 120 mg daily for 4 days and 150 mg daily on 3 days of the week. Dose change made in 05/2024 from 120 mg daily - Recent TFTs reviewed Managed by PCP- will defer to them-advised to check with her PCP - Will do free T4 EQ along with TSH due to abnormal labs and due to c/o weight gain. This could be due to using armour thyroid. She reports she cannot ainsley synthroid or levoxyl due to intolerance, andwould only prefer armour thyroid. If labs are not concerning, shall defer this to PCP. If abnormal,might consider further work up Scripts sent to pharmacy of pt choice: N/A RTC in 3 months I have confirmed and edited as necessary, the past medical, surgical, family, and social history asobtained by others. I spent a total of 53 minutes on the date of the service which included preparing to see the patient, [id number] patient care, completing clinical documentation, obtaining and/or reviewing separately obtained history, performing a medically appropriate examination, counseling and educating the pat ient/family/caregiver, ordering medications, tests, or procedures, communicating with other HCPs (not separately reported), and communicating results to the patient/family/caregiver. Bean Isaac MD Endocrinology Associate Staff [facility] Endocrinology and Metabolism [place] [phone] Medical Decision Making: Medical Decision Making Level: 1 - N/A documented in this encounterPark[facility]02-14-[facility]25 NoteHNO ID: [id number] Author: BEAN ISAAC MD Service: ? Author Type: Physician Type: Progress Notes Filed: 11/11/2024 18:16 Note Text: [facility] Follow up note Referred by: PCP- Preet Farrar DO History of Present illness: Leidy Blanco is a 69 year old female here today for evaluation [...] years until lantus -Duration of insulin use: few months now Complications: Cardiovascular -- Yes HTN, HLD, in 2021 she had a Stroke Statin Use -- Yes, atorvastatin 80 mg daily Retinopathy -- No Last JUAN/Retina Eval: 03/2024 Nephropathy -- Yes NICOLE/ARB Use -- Yes [...] past . Diabetes Medications -Current regimen: lantus 18 units daily in the morning (started using insulin in March 2024, increased to 18 units 2 weeks ago), Sitagliptin 100 mg daily, glimepiride 2 mg daily (she herself decreased by half pil 2 weeks ago from 2.5 mg which also she increased by herself) -Misses doses: None -Adverse medication effects: no -Rotating injection sites: yes -Previously Used DM Meds: Yes Metformin - GI upset Jardiance- Yeast infection She was on Ozempic 1 mg for more than 1 year, when it was increased to 2 mg she was hospitalized due to vomiting, diarrhea and was diagnosed with Gastroparesis assumed to be due to the medication . Blood sugars -Self monitoring of blood sugar via fingerstick: 4 x daily Insurance did not approve CGM. She brought glucometer -Brought blood glucose log for review: yes Oct 28, 2024 to nov 11, 2024 Avg B mg/dl Highest 285 mg/dl, lowest 102 mg/dl -BG log reviewed: --Fastin-216 --Prelunch: 157-213 --Predinner: 140-215 --Bedtime: 165-225 Hypoglycemia -Hypoglycemic episodes: denied any lows, nothing lower than 102 mg/dl as per glucometer readings for the last 15 days -Frequency and timing of hypoglycemia: n/a -Hypoglycemia awareness: n/a Concerns reported today: She denied any hyperglycemic symptoms today. After I told about side effect of weight gain with glimepiride and insulin dose increase, she does report gaining about 5 to 6 lbs in the last 2 weeks after increase glimepiride by 1/2 pill Last time I discussed with her that glimepiride can cause weight gain, as well as insulin. She possibly reduced dose of glimepiride due to this, and since her BG has been higher than before atleast from what she reported on last visit as her BG readings, no significant change in Hba1c She did not do the Dexamethasone suppression test due to itchy sensation when she takes prednisone and would like to avoid that allerrgic reaction . She would like to She has a hx of smoking that she quit but she is concerned of weight gain despite not eating much carbs . Lifestyle -Exercise: 30 mins on [place] daily -Diet: Breakfast: 3 eggs, 1 slice of gluten free bread Lunch: yogurt with 3 gms of carbs, either cheese or chicken sausage, half orange or small cup of fruit Dinner: salmon, chicken strips with 3 gms of carbs, broccoli or brussels sprouts . Blood pressure -Today BP 124/74 -Current antihypertensive therapy: carvedilol 6.25 mg BID, [...] hair loss, alopecia, excessive sweating, flushing, darkening o (more content not included)...[facility] 11-01-2024 Telephone encounter Note* Telephone Encounter - Fernanda Ulloa LPN - 11/01/2024 8:02 AM EST The patient has been identified by name and date of : Yes Caregiver verified no other encounters exist for this prescription request: Yes Caregiver confirmed with patient/requestor that no other refills are due, in the near future, with this provider at this time: Yes The last office visit in the department: 10/07/2024 Does the patient have a future office visit with this provider/department: Yes 12/14/2024 Requested Prescriptions Pending Prescriptions Disp Refills ARMOUR THYROID 30 mg tablet 36 tablet 1 Sig: Take 1 tablet by mouth every Thursday, Thursday, and Thursday. In the morning. (Take this is addition to the 120 mg armor thyroid) Fernanda Ulloa LPN November 01, 2024 8:03 AM [facility]02-04-2025 Miscellaneous Notes* Telephone Encounter - Fernanda Ulloa LPN - 11/01/2024 8:02 AM EST The patient has been identified by name and date of : Yes Caregiver verified no other encounters exist for this prescription request: Yes Caregiver confirmed with patient/requestor that no other refills are due, in the near future, with this provider at this time: Yes The last office visit in the department: 10/07/2024 Does the patient have a future office visit with this provider/department: Yes 12/14/2024 Requested Prescriptions Pending Prescriptions Disp Refills ARMOUR THYROID 30 mg tablet 36 tablet 1 Sig: Take 1 tablet by mouth every Thursday, Thursday, and Thursday. In the morning. (Take this is addition to the 120 mg armor thyroid) Fernanda Ulloa LPN November 01, 2024 8:03 AM documented [facility] NoteHNO ID: [id number] Author: PREET FARRAR, DO Service: ? Author Type: Physician Type: Progress Notes Filed: 10/08/2024 08:39 Note Text: Patient presents with: Medicare Wellness Exam HPI: Leidy Blanco is a 69 year old female who presents to the office today for review of health conditions. Concerns today: She is starting to see Crime Laboratory Analyst for opinion regarding her thyroid and fatigue and weight concerns as well as her type 2 diabetes. She is supposed to have cortisol testing further to determine if any concerns for deficiency Her blood glucose still is running high in the evening at times up to 250s, as low as 150s. In the AM from 150-190s typically. She is using her meter. Her 30 day average is 176. Her 90 day average is 172 She is scheduled to have a vaginal assisted total hysterectomy by Dr. Hall on 12/27 upcoming. Hx of tobacco use disorder, she is now nicotine free for 2 years this month Ms. Blanco has past history of diabetes. Since our last visit she denies excessive thirst or increased frequency of urination, chest pain or dyspnea , new or unusual visual symptoms, and low sugar/hypoglycemic reactions. Depression- no. Follows a diabetic diet most of the time. She is compliant with medication(s) and is tolerating med(s) without any side effects. She reports checking her glucose on a three times a day schedule with sugars in the fasting 170-200s range. Patient's last HgA1C was Hemoglobin A1C (%) Date Value 10/05/2024 7.3 05/17/2024 6.9 11/13/2021 6.3 04/16/2021 6.3 Hemoglobin A1C (POCT) (%) Date Value 01/06/2024 6.5 ) Last Ophthalmology exam was within the past 12 months Ms. Blanco reports history of hyperlipidemia. Current therapy includes atorvastatin (Lipitor) 80 mg. Denies side effects of muscle weakness or achiness. Her most recent lipid panels are reviewed. Cholesterol, Total (mg/dL) Date Value 10/05/2024 122 04/16/2021 193 HDL Cholesterol (mg/dL) Date Value 10/05/2024 65 04/16/2021 58 LDL Cholesterol (mg/dL) Date Value 10/05/2024 36 04/16/2021 91 Triglyceride (mg/dL) Date Value 10/05/2024 105 04/16/2021 222 Ms. Blanco indicates a history of hypertension and states that she is feeling well and denies any symptoms referable to elevated blood pressure. Specifically denies headache, chest pain, palpitations, dyspnea, and peripheral edema. Patient denies any side effects of her medication(s) and is compliant with their regimen. Last 3 Encounter BP Readings: Date: BP: 10/07/2024 116/60 08/11/2024 150/67 06/14/2024 136/70 She watches her diet for sodium, low fat and low cholesterol some of the time. She does not check BP's generally. Leidy gets minimal exercise. PAST MEDICAL HISTORY Diagnosis [...] date: 11/02/2002 Quit date: 11/02/2022 Years since quittin.9 Smokeless tobacco: Never Substance Use Topics Alcohol [...] Itching Sulfa (Sulfonamide * Rash Current Meds: insulin glargine (LANTUS SOLOSTAR U-100 INSULIN) 100 unit/mL (3 mL) Inject 20 Units subcutaneously daily at bedtime. glimepiride (AMARYL) 2 mg tablet Take 1 tablet by mouth two times a day with meals. pantoprazole DR (PROTONIX) 40 mg tablet Take 1 tablet by mouth once daily. ARMOUR THYROID 120 mg tablet Take 1 tablet PO daily in AM SITagliptin phosphate (JANUVIA) 100 mg tablet Take 1 tablet by mouth once daily. blood sugar diagnostic (Tela SolutionsUCH VERIO TEST STRIPS) test strip Test blood sugar(s) 4 times daily. Dx: Type 2 DM - Uncontrolled E11.65 Insulin: Yes dexAMETHasone (DECADRON) 1 mg tablet (more content not included)...[facility]01-11-2025 History of Present illness Narrative* Preet Farrar, DO - 10/08/2024 8:34 AM EST Patient presents with: Medicare Wellness Exam HPI: Leidy Blanco is a 69 year old female who presents to the office today for review of health conditions. Concerns today: She is starting to see Crime Laboratory Analyst for opinion regarding her thyroid and fatigue and weight concerns as well as her type 2 diabetes. She is supposed to have cortisol testing further to determine if any concerns for deficiency Her blood glucose still is running high in the evening at times up to 250s, as low as 150s. In the AM from 150-190s typically. She is using her meter. Her 30 day average is 176. Her 90 day average is172 She is scheduled to have a vaginal assisted total hysterectomy by Dr. Hall on 12/27 upcoming. Hx of tobacco use disorder, she is now nicotine free for 2 years this month Ms. Blanco has past history of diabetes. Since our last visit she denies excessive thirst or increased frequency of urination, chest pain or dyspnea , new or unusual visual symptoms, and low sugar/hypoglycemic reactions. Depression- no. Follows a diabetic diet most of the time. She is compliant with medication(s) and is tolerating med(s) without any side effects. She reports checking her glucose on a three times a day schedule with sugars in the fasting 170-200s range. Patient's last HgA1C was Hemoglobin A1C (%) Date Value 10/05/2024 7.3 05/17/2024 6.9 11/13/2021 6.3 04/16/2021 6.3 Hemoglobin A1C (POCT) (%) Date Value 01/06/2024 6.5 ) Last Ophthalmology exam was within the past 12 months Ms. Blanco reports history of hyperlipidemia. Current therapy includes atorvastatin (Lipitor) 80 mg. Denies side effects of muscle weakness or achiness. Her most recent lipid panels are reviewed. Cholesterol, Total (mg/dL) Date Value 10/05/2024 122 04/16/2021 193 HDL Cholesterol (mg/dL) Date Value 10/05/2024 65 04/16/2021 58 LDL Cholesterol (mg/dL) Date Value 10/05/2024 36 04/16/2021 91 Triglyceride (mg/dL) Date Value 10/05/2024 105 04/16/2021 222 Ms. Blanco indicates a history of hypertension and states that she is feeling well and denies any symptoms referable to elevated blood pressure. Specifically denies headache, chest pain, palpitations, dyspnea, and peripheral edema. Patient denies any side effects of her medication(s) and is compliant with their regimen. Last 3 Encounter BP Readings: Date: BP: 10/07/2024 116/60 08/11/2024 150/67 06/14/2024 136/70 She watches her diet for sodium, low fat and low cholesterol some of the time. She does not check BP's generally. Leidy gets minimal exercise. PAST MEDICAL HISTORY Diagnosis [...] date: 11/02/2002 Quit date: 11/02/2022 Years since quittin.9 Smokeless tobacco: Never Substance Use Topics Alcohol [...] Itching Sulfa (Sulfonamide * Rash Current Meds: insulin glargine (LANTUS SOLOSTAR U-100 INSULIN) 100 unit/mL (3 mL) Inject 20 Units subcutaneously daily at bedtime. glimepiride (AMARYL) 2 mg tablet Take 1 tablet by mouth two times a day with meals. pantoprazole DR (PROTONIX) 40 mg tablet Take 1 tablet by mouth once daily. ARMOUR THYROID 120 mg tablet Take 1 tablet PO daily in AM SITagliptin phosphate (JANUVIA) 100 mg tablet Take 1 tablet by mouth once daily. blood sugar diagnostic (Tela SolutionsUCH VERIO TEST STRIPS) test strip Test blood sugar(s) 4 times daily. Dx: Type 2 DM - Uncontrolled E11.65 Insulin: Yes dexAMETHasone (DECADRON) 1 mg tablet Take the tablet at 11 pm and go for labs the next morning on fasting at 8 am Insulin [place], Disposable, (BD ULTRA-FINE MARIA T PEN NEEDLE) 32 gauge x Use one needle for each dose. 1/day. ARMOUR THYROID 30 mg tablet Take 1 tablet by mouth every Thursday, Thursday, and Thursday. In the morning. (Take this is addition to the 120 mg armor thyroid) atorvastatin (LIPITOR) 80 mg tablet Take 1 [...] Type 2 DM - Uncontrolled Insulin: No Review of Systems: The remainder of the review of systems is negative. PE: 10/07/24 1058 BP: 116/60 Pulse: 64 Resp: 20 Temp: 36.1 C (97 F) TempSrc: Left Tympanic Weight: 82.6 kg (182 lb 1.6 oz) Height: 155 cm (5' 1.02) Gen: A&O, NAD, non-toxic appearing, Pleasant, cooperative HEENT: NT/AC, PERRLA, EOMs intact b/l, nares clear and patent b/l, pharynx without erythema, exudate or lesions, MMM. Uvula midline. EACs without erythema or debris. [...] on right and left feet. ASSESSMENT/PLAN: 1. Medicare annual wellness visit, subsequent - ICD9: V70.0, ICD10: Z00.00 (primary diagnosis) - Counseled on healthy diet and regular exercise - Discussed need and benefit for weight loss. BMI 34.38 kg/(m^2) 2. Uncontrolled type 2 diabetes mellitus with hyperglycemia (HCC) - ICD9: 250.02, ICD10: E11.65 - Worsening control - Increase Insulin glargine (Lantus/Basaglar/Toujeo) - LANTUS SOLOSTAR U-100 INSULIN 100 UNIT/ML (3 ML) SUBCUTANEOUS PEN 3. Vitamin B12 deficiency - ICD9: 266.2, ICD10: E53.8 Continue supplement 4. 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, without long-term current use of insulin (HCC) - ICD9: 249.80, ICD10: E08.69 See above F/u with Crime Laboratory Analyst as scheduled. 5. Hypothyroidism, unspecified type - ICD9: 244.9, ICD10: E03.9 - Instructed patient on importance of taking on an empty stomach either first thing in the morning or at bedtime. 6. Hyperlipidemia, mixed - ICD9: 272.2, ICD10: E78.2 - Improving control - Continue current medications - Counseled on healthy diet and regular exercise - Discussed need for and benefit of weight loss. BMI 34.38 kg/(m^2) 7. Essential hypertension, benign - ICD9: 401.1, ICD10: I10 - Controlled - Continue current medications - Recommend home blood pressure monitoring, to bring results to next visit - Encouraged sodium restriction, DASH or Mediterranean diet - Recommend regular aerobic exercise - Discussed need for and benefit of weight loss. BMI 34.38 kg/(m^2) 8. Acquired hypothyroidism - ICD9: 244.9, ICD10: E03.9 - Instructed patient on importance of taking on an empty stomach either first thing in the morning or at bedtime. 9. Vitamin D deficiency - ICD9: 268.9, ICD10: E55.9 Continue supplement Preet Farrar, DO To ER if develops chest pain, shortness of breath, or severe worsening of symptoms. Discussed risks, benefits, alternatives, and potential side effects of medications. Patient expressed understanding and agreed with the plan. Preet Farrar DO [address] [place] [address] * Preet Farrar DO - 10/08/2024 8:33 AM EST Images from the original note were not included. Leidy Blanco is a 69 year old female here for a Medicare wellness visit. Medicare Health Risk Assessment General Health Excellent Exercise: Minutes/Day 30 min Exercise: Days/Week 7 days Alcohol: Daily Use Never Alcohol: Drinks/Day Patient does not drink Alcohol: 6 or more drinks Never Feel off balance No Concerns: Teeth/Dentures No Concerns: Sexual function No Troubled by feelings None of the above Frequency: Eating healthy diet Nearly every day ADLs requiring help None of the above Safety precautions in home/vehicle Yes Smoke, vape, chews tobacco No Difficulty hearing No Difficulty seeing No Current Providers Specialists: I have reviewed specialist-related care of the patient in the medical record. Medical/Family history review Reviewed and updated problem list, medical/surgical/family/social history, medications, and allergies. Opioid use review Opioid Medications (last 90 days) No data to display Anxiety/Depression screening PHQ-2 Score: 0 (Lower risk for depression) Recommendation: no further intervention at this time Cognitive screening Mini Cog Score: 5 Cognitive screening reviewed and No further action needed (score 3-5). Functional Observation Was the patient's Timed Up & Go test unsteady or >= 12 seconds? No Advance Care Planning Surrogate decision maker and/or advance care plan documented Measurements BP 116/60 Pulse 64 Temp 36.1 C (97 F) (Left Tympanic) Resp 20 Ht 155 cm (5' 1.02) Wt 82.6 kg (182 lb 1.6 oz) BMI 34.38 kg/m Vision Screening: Follows with optometry/ophthalmology Assessment/Plan Medicare annual wellness visit, subsequent (Z00.00) - Counseled on healthy diet and regular exercise - Fall avoidance information provided - Personalized prevention plan provided Preet Farrar DO documented in [facility]01-[facility] NoteHNO ID: [id number] Author: PREET FARRAR DO Service: ? Author Type: Physician Type: Progress Notes Filed: 10/08/2024 08:39 Note Text: Leidy Blanco is a 69 year old female here for a Medicare wellness visit. Medicare Health Risk Assessment General Health Excellent Exercise: Minutes/Day 30 min Exercise: Days/Week 7 days Alcohol: Daily Use Never Alcohol: Drinks/Day Patient does not drink Alcohol: 6 or more drinks Never Feel off balance No Concerns: Teeth/Dentures No Concerns: Sexual function No Troubled by feelings None of the above Frequency: Eating healthy diet Nearly every day ADLs requiring help None of the above Safety precautions in home/vehicle Yes Smoke, vape, chews tobacco No Difficulty hearing No Difficulty seeing No Current Providers Specialists: I have reviewed specialist-related care of the patient in the medical record. Medical/Family history review Reviewed and updated problem list, medical/surgical/family/social history, medications, and allergies. Opioid use review Opioid Medications (last 90 days) No data to display Anxiety/Depression screening PHQ-2 Score: 0 (Lower risk for depression) Recommendation: no further intervention at this time Cognitive screening Mini Cog Score: 5 Cognitive screening reviewed and No further action needed (score 3-5). Functional Observation Was the patient's Timed Up AND Go test unsteady or >= 12 seconds? No Advance Care Planning Surrogate decision maker and/or advance care plan documented Measurements BP 116/60 Pulse 64 Temp 36.1 ?C (97 ?F) (Left Tympanic) Resp 20 Ht 155 cm (5' 1.02) Wt 82.6 kg (182 lb 1.6 oz) BMI 34.38 kg/m? Vision Screening: Follows with optometry/ophthalmology Assessment/Plan Medicare annual wellness visit, subsequent (Z00.00) - Counseled on healthy diet and regular exercise - Fall avoidance information provided - Personalized prevention plan provided [facility] Tele[facility] encounter Note* Telephone Encounter - Sahara Mejia LPN - 10/04/2024 9:29 AM EST Pt. informed. [facility] Work Phone: 1(959) 742-562101-07-2025 Miscellaneous Notes* Telephone Encounter - Sahara Mejia LPN - 10/04/2024 9:29 AM EST Pt. informed. * Telephone Encounter - Marika Carolina PA-C - 10/04/2024 9:00 AM EST Labs ordered Marika Carolina PA-C 10/04/2024 * Telephone Encounter - Donna Kimble MA - 10/04/2024 7:47 AM EST Please see patient request she had blood work done 05/21 Donna Kimble MA * Telephone Encounter - Maegan Winters - 10/04/2024 7:30 AM EST Pt came in requesting lab work prior to her 10/07 tex, pt wants routine labs and her thyroid checked Thank you ! documented in this encounterPark[facility]01-07-[facility]25 Telephone encounter Note * Telephone Encounter - Marika Carolina PA-C - 10/04/2024 9:00 AM EST Labs ordered Marika Carolina PA-C 10/04/2024 [facility]01-07-2025 Telephone encounter Note* Telephone Encounter - Donna Kimble MA - 10/04/2024 7:47 AM EST Please see patient request she had blood work done 05/21 Donna Kimble MA [facility]01-07-2025 Telephone encounter Note* Telephone Encounter - Maegan Winters - 10/04/2024 7:30 AM EST Pt came in requesting lab work prior to her 10/07 [place], pt wants routine labs and her thyroid checked Thank you ! [facility]12-17-2024 Telephone encounter Note* Telephone Encounter - Preet Fararr DO - 09/13/2024 4:24 PM EST Noted Preet Farrar DO [facility]12-17-2024 Miscellaneous Notes* Telephone Encounter - Preet Farrar DO - 09/13/2024 4:24 PM EST Noted Preet Farrar DO * Telephone Encounter - Sahara Mejia LPN - 09/12/2024 1:17 PM EST Pt. dropped of glucose numbers for Dr. Farrar to review. documented in this encounterParkwood Hospital12-17-2024 Evaluation note* Diagnosis Onset Date Resolution Status Admit Date Endometrial hyperplasia with out atypia acute September 13, 024 1:45pm Endometrial hyperplasia with out atypia acute December 12, 2024 10:49am Endometrial hyperplasia with out atypia acute December 27, 2024 8:20am History of total vaginal hysterectomy (TVH) acute December 27 8:20am Atherosclerotic vascular disease chronic December 27, 2024 8:20am Carotid artery disease chronic Ap 2024 8:20am Dyslipidemia chronic December 27, 025 8:20am History of CVA (cerebrovascu lar accident) chronic December 27, 2024 8:20am Hypertension chronic December 27, 025 8:20am Renal artery stenosis chronic Dec 8:20am [facility] Work Phone: 1(704) 378-540512-16-2024 Telephone encounter Note* Telephone Encounter - Sahara Mejia LPN - 09/12/2024 1:17 PM EST Pt. dropped of glucose numbers for Dr. Farrar to review. [facility] Work Phone: 1(999) 892-320712-06-2024 Telephone encounter Note* Telephone Encounter - Yesi Kitchen RN - 2024 11:04 AM EST The patient has been identified by name [...] 10/07/2024 Requested Prescriptions Pending Prescriptions Disp Refills glimepiride (AMARYL) 2 mg tablet 60 tablet 5 Sig: Take 1 tablet by mouth two times a day with meals. pantoprazole DR (PROTONIX) 40 mg tablet 30 tablet 5 Sig: Take 1 tablet by mouth once daily. Yesi Kitchen RN 2024 11:04 AM [facility]12-06-2024 Miscellaneous Notes* Telephone Encounter - Yesi Kitchen RN - 2024 11:04 AM EST The patient has been identified by name [...] 10/07/2024 Requested Prescriptions Pending Prescriptions Disp Refills glimepiride (AMARYL) 2 mg tablet 60 tablet 5 Sig: Take 1 tablet by mouth two times a day with meals. pantoprazole DR (PROTONIX) 40 mg tablet 30 tablet 5 Sig: Take 1 tablet by mouth once daily. Yesi Kitchen RN 2024 11:04 AM documented in this encounterPark[facility]11-14-2024 Telephone encounter Note * Telephone Encounter - Kerry Nevarez LPN - 08/11/2024 2:18 PM EST The patient has been identified by name [...] 10/07/2024 Requested Prescriptions Pending Prescriptions Disp Refills ARMOUR THYROID 120 mg tablet 90 tablet 1 Sig: Take 1 tablet PO daily in AM SITagliptin phosphate (JANUVIA) 100 mg tablet 90 tablet 1 Sig: Take 1 tablet by mouth once daily. blood sugar diagnostic (ONETOUCH VERIO TEST STRIPS) test strip 150 Strip 11 Sig: Test blood sugar(s) 4 times daily. Dx: Type 2 DM - Uncontrolled E11.65 Insulin: Yes Kerry Nevarez LPN August 11, 2024 2:26 PM [facility] Miscellaneous Notes* Telephone Encounter - Kerry Nevarez LPN - 08/11/2024 2:18 PM EST The patient has been identified by name [...] 10/07/2024 Requested Prescriptions Pending Prescriptions Disp Refills ARMOUR THYROID 120 mg tablet 90 tablet 1 Sig: Take 1 tablet PO daily in AM SITagliptin phosphate (JANUVIA) 100 mg tablet 90 tablet 1 Sig: Take 1 tablet by mouth once daily. blood sugar diagnostic (DataGravityTOUCH VERIO TEST STRIPS) test strip 150 Strip 11 Sig: Test blood sugar(s) 4 times daily. Dx: Type 2 DM - Uncontrolled E11.65 Insulin: Yes Kerry Nevarez LPN August 11, 2024 2:26 PM documented in this encounterParkwood Hospital11-14-2024 Instructions* Patient Instructions* Bean Isaac MD - 08/11/2024 10:08 AM EST Directions for dexamethasone suppression test: 1. Take dexamethasone 1-mg tab by mouth at 11 PM the evening before your test. 2. Go to the lab the next morning and have your blood drawn at ~8 AM. *Do not eat or drink anythingother than water from the time you take dexamethasone to the time you get your blood drawn. 3. If either of the following situations happen, DO NOT HAVE YOUR BLOOD DRAWN: A. You forget to take the pill at 11 PM the evening before B. You cannot get your blood drawn the next morning at ~8 AM C. If either situation happens, please call me to let me know Continue same medications for diabetes for now documented in this encounterParkwood Hospital11-14-2024 NoteHNO ID: [id number] Author: BEAN ISAAC MD Service: ? Author Type: Physician Type: Progress Notes Filed: 08/11/2024 18:10 Note Text: [facility] Follow up note Referred by: PCP- Preet Farrar DO History of Present illness: Leidy Blanco is a 68 year old female [...] Yes Retinopathy -- No Last JUAN/Retina Eval: last month Nephropathy -- Yes NICOLE/ARB Use -- [...] past . Diabetes Medications -Current regimen: lantus 18 units daily in the morning (started using insulin in March 2024, increased to 18 units 2 weeks ago), Sitagliptin 100 mg daily, glimepiride 2 mg daily (she increased by half pil 2 weeks ago) -Misses doses: None -Adverse medication effects: no -Rotating injection sites: yes -Previously Used DM Meds: Yes Metformin - GI upset Jardiance- Yeast infection She was on Ozempic 1 mg for more than 1 year, when it was increased to 2 mg she was hospitalized due to vomiting, diarrhea and was diagnosed with Gastroparesis assumed to be due to the medication . Blood sugars -Self monitoring of blood sugar via fingerstick: 4 x daily Insurance did not approve CGM. She did not bring her log -Brought blood glucose log for review: No -BG log reviewed: --Fastins-170s, but this morning was 124 mg/dl --Prelunch: 110-150 --Predinner: 120s-140s --Bedtime: 150s-170s Hypoglycemia -Hypoglycemic episodes: denied any lows, lower than 89 -Frequency and timing of hypoglycemia: n/a -Hypoglycemia awareness: n/a Concerns reported today: She denied any hyperglycemic symptoms today. After I told about side effect of weight gain with glimepiride and insulin dose increase, she does report gaining about 5 to 6 lbs in the last 2 weeks after increase glimepiride by 1/2 pill . Lifestyle -Exercise: 30 mins on Frengo daily -Diet: Breakfast: 3 eggs, 1 slice [...] swings Past Medical History PAST MEDICAL HISTORY Diagnosis Date Aortic stenosis, moderate 08/2019 Benign hypertensive heart disease Celiac disease Diabetes mellitus without mention of complication Diabetes mellitus Fatty liver Grave's disease IBS (irritable bowel syndrome) Medical marijuana use has card Ulcerative colitis, unspecified Vitamin D deficiency Past Surgical History PAST SURGICAL HISTORY Procedure Laterality Date COLONOSCOPY FLX DX W/COLLJ SPEC WHEN PFRMD 09/09/2013 Colonoscopy ESOPHAGOGASTRODUODENOSCOPY TRANSORAL DIAGNOSTIC 09/09/2013 EGD INFUSE RADIOACTIVE MATERIALS Iodine ablation for Grave's disease (more content not included)...[facility]11-14-2024 History of Present illness Narrative* eBan Isaac MD - 08/11/2024 9:51 AM EST [facility] Follow up note Referred by: PCP- Preet Farrar DO History of Present illness: Leidy Blanco is a 68 year old female here today for evaluation of Type 2 DM, she also has a PMH ofHTN, HLD, CVA, Obesity class I, Hypothyroidism, Celiac [...] Yes Retinopathy -- No Last JUAN/Retina Eval: last month Nephropathy -- Yes NICOLE/ARB Use -- [...] past . Diabetes Medications -Current regimen: lantus 18 units daily in the morning (started using insulin in March 2024, increased to 18 units 2 weeks ago), Sitagliptin 100 mg daily, glimepiride 2 mg daily (she increased by halfpil 2 weeks ago) -Misses doses: None -Adverse medication effects: no -Rotating injection sites: yes -Previously Used DM Meds: Yes Metformin - GI upset Jardiance- Yeast infection She was on Ozempic 1 mg for more than 1 year, when it was increased to 2 mg she was hospitalized due to vomiting, diarrhea and was diagnosed with Gastroparesis assumed to be due to the medication . Blood sugars -Self monitoring of blood sugar via fingerstick: 4 x daily Insurance did not approve CGM. She did not bring her log -Brought blood glucose log for review: No -BG log reviewed: --Fastins-170s, but this morning was 124 mg/dl --Prelunch: 110-150 --Predinner: 120s-140s --Bedtime: 150s-170s Hypoglycemia -Hypoglycemic episodes: denied any lows, lower than 89 -Frequency and timing of hypoglycemia: n/a -Hypoglycemia awareness: n/a Concerns reported today: She denied any hyperglycemic symptoms today. After I told about side effect of weight gain with glimepiride and insulin dose increase, she does report gaining about 5 to 6 lbs in the last 2 weeks after increase glimepiride by 1/2 pill . Lifestyle -Exercise: 30 mins on Frengo daily -Diet: Breakfast: 3 eggs, 1 slice [...] swings Past Medical History PAST MEDICAL HISTORY Diagnosis Date Aortic stenosis, moderate 08/2019 Benign hypertensive heart disease Celiac disease Diabetes mellitus without mention of complication Diabetes mellitus Fatty liver Grave's disease IBS (irritable bowel syndrome) Medical marijuana use has card Ulcerative colitis, unspecified Vitamin D deficiency Past Surgical History PAST SURGICAL HISTORY Procedure Laterality [...] date: 11/02/2002 Quit date: 11/02/2022 Years since quittin.7 Smokeless tobacco: Never Substance Use Topics Alcohol use: Yes Drug use: Yes Types: Marijuana Allergies ALLERGIES Allergen Reactions Asa [Salicylates] Hives, GI Upset As a child Gluten Intolerance Metformin GI Upset, Itching Prednisone Itching Sulfa (Sulfonamide * Rash Current Medications Current Outpatient Medications Medication Sig Dispense Refill pantoprazole DR (PROTONIX) 40 mg tablet Take 1 tablet by mouth once daily. 30 tablet 2 Insulin [place], Disposable, (BD ULTRA-FINE MARIA T PEN NEEDLE) 32 gauge x Use one needle for each dose. 1/day. 100 Each 11 ARMOUR THYROID 30 mg tablet Take 1 tablet by mouth every Thursday, Thursday, and Thursday. In the morning. (Take this is addition to the 120 mg armor thyroid) 36 tablet 1 insulin glargine (LANTUS SOLOSTAR U-100 INSULIN) 100 unit/mL (3 mL) Inject 16 Units subcutaneously daily at bedtime. 27 mL 3 atorvastatin (LIPITOR) 80 mg tablet Take 1 tablet by mouth once daily. 90 tablet 1 clopidogrel (PLAVIX) 75 mg tablet Take 1 tablet by mouth once daily. 90 tablet 1 glimepiride (AMARYL) 2 mg tablet Take 1 tablet by mouth two times a day with meals. 180 tablet 1 SITagliptin phosphate (JANUVIA) 100 mg tablet Take [...] 2 DM - Uncontrolled E11.65 Insulin: No 100 Strip 11 spironolactone (ALDACTONE) 25 mg tablet Take 25 [...] 2 DM - Uncontrolled E11.65 Insulin: No 100 Each 11 flash glucose scanning reader (FREESTYLE TARA 2 READER) 1 Device as directed. Type 2 diabetes uncontrolled, no insulin (Patient not taking: Reported on 01/06/2024) 1 Each 0 No current facility-administered medications for this visit. Vitals: 08/11/24 0947 BP: 150/67 BP Site: Right Arm BP Position: Sitting BP Cuff Size: Regular Adult Pulse: 69 Temp: 36.8 C (98.2 F) TempSrc: Temporal Artery SpO2: 97% Weight: 82.6 kg (182 lb 3.2 oz) Physical Exam GENERAL: Well nourished, obese, well [...] normal strength, no tremor OTHER: Acanthosis None Labs: Recent Labs 09/13/21 1205 11/13/21 0755 11/13/21 0756 02/19/22 1238 03/25/22 1200 04/04/22 1000 04/04/22 1004 06/24/22 1003 08/26/22 1105 09/08/22 0853 11/05/22 1034 11/05/22 1504 12/02/22 0821 03/10/23 0758 05/05/23 0733 06/15/23 0831 07/30/23 1318 09/08/23 1122 11/13/23 0931 11/16/23 1156 03/21/24 1120 05/03/24 1146 05/17/24 0743 07/15/24 1045 ALT -- 8 -- 13 -- -- -- -- -- 13 -- -- 14 21 -- 15 -- -- 18 -- 16 -- 12 -- AST -- 14 -- 16 -- -- -- -- -- 17 -- -- 14 23 -- 16 -- -- 19 -- 27 -- 15 -- UCRR -- -- 19.5* -- -- -- 46.8 8.8* 84.7 -- -- 16.2* -- -- 55.6 -- -- -- 18.0* -- -- 12.5* -- -- UALBR -- -- <12.0 -- -- -- -- -- -- -- -- <12.0 -- -- -- -- -- -- <12.0 -- -- -- -- -- UALBCR -- -- Not calculated -- -- -- -- -- -- -- -- -- -- -- -- -- -- -- -- -- -- -- -- -- TSH 0.289 2.660 -- -- -- -- -- -- -- -- -- -- -- 0.309 -- 0.009* -- 0.119* 0.324 0.882 1.890 -- 1.960 0.218* TPROT -- 7.3 -- 7.2 -- -- -- -- -- 7.5 -- -- 6.9 7.4 -- 6.9 -- -- 7.5 -- 7.4 -- 6.9 -- ALB -- 4.5 -- 4.4 4.5 4.5 -- 4.3 4.3 4.5 4.3 -- 4.2 4.5 4.1 4.1 -- -- 4.6 -- 4.3 4.5 4.3 -- CA -- 9.6 -- 10.1 10.6* 9.9 -- 9.9 9.6 10.0 9.8 -- 9.6 10.0 9.9 9.7 -- -- 10.1 -- 10.4* 10.0 9.6 -- TBILI -- 0.4 -- 0.2 -- -- -- -- -- 0.6 -- -- 0.5 0.6 -- 0.6 -- -- 0.4 -- 0.4 -- 0.6 -- ALKPHOS -- 114 -- 104 -- -- -- -- -- 99 -- -- 96 110 -- 102 -- -- 103 -- 99 -- 86 -- GLUC -- 106* -- 134* 128* 192* -- 145* 151* 197* 221* -- 192* 204* 156* 182* -- -- 179* -- 192* 138* 176* -- BUN -- 8 -- 14 15 14 -- 15 16 17 13 -- 12 13 13 12 -- -- 12 -- 17 18 17 -- CREAT -- 0.54* -- 0.52* 0.53* 0.51* -- 0.58 0.58 0.63 0.51* -- 0.54* 0.62 0.56* 0.58 -- -- 0.53* --0.67 0.68 0.67 -- NA -- 137 -- 138 137 133* -- 138 138 134* 135* -- 137 134* 135* 137 -- -- 139 -- 135* 137 136 -- K -- 3.8 -- 4.1 4.7 4.4 -- 4.9 4.6 4.7 4.3 -- 5.0 5.0 4.6 4.5 3.9 -- 3.7 -- 4.9 4.7 4.8 -- CHLOR -- 98 -- 98 98 98 -- 101 101 97 102 -- 102 96* 101 99 -- -- 100 -- 98 100 100 -- CO2 -- 26 -- 25 21* 22 -- 24 24 28 23 -- 27 27 25 26 -- -- 27 -- 21* 27 27 -- ANION -- 13 -- 15 18 13 -- 13 13 9 10 -- 8* 11 9 12 -- -- 12 -- 16* 10 9 -- EGFROTH -- >60 -- 103 102 103 -- 100 100 97 102 -- 101 98 100 99 -- -- 101 -- 95 95 95 -- B12 -- 366 -- -- -- -- -- -- -- -- -- -- 1,636* -- -- -- -- 1,913* -- -- -- -- -- -- Recent Labs 11/13/215 02/19/22 1238 09/08/22 0853 12/02/22 0821 03/10/23 0758 06/15/23 0831 09/08/23 1122 11/13/23 0931 11/16/23 1156 01/06/24 1133 05/17/24 0743 TG -- -- 168* 90 91 113 -- 99 -- -- 79 CHOL -- -- 222* 95 107 100 -- 121 -- -- 115 HDL -- -- 60 53 61 55 -- 77 -- -- 71 VLDL -- -- 34* 18 18 23 -- 20 -- -- 16 LDL -- -- 128* 24 28 22 -- 24 -- -- 28 FASTTIME -- -- 9 12 12 12.5 -- 12 -- -- 12 TCHDL -- -- 3.70 1.79 1.75 1.82 -- 1.57 -- -- 1.62 LDLHDL -- -- 2.13 0.45 0.46 0.40 -- 0.31 -- -- 0.39 NONHDL -- -- 162* 42 46 45 -- 44 -- -- 44 HBA1C 6.3* 6.5* 7.1* 7.3* 7.8* 6.7* 6.4* 6.5* 6.4* 6.5* 6.9* HBA0 134 140 157 163 177 146 137 140 137 -- 151 B12 366 -- -- 1,636* -- -- 1,913* -- -- -- -- Hba1c 7.2% on 07/21/24 TSH 0.143 (0.358-3.74) Assessment and Plan 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 2 DM with macrovascular complications 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 Farrar, her PCP about these changes - encouraged continuing BG check and to add a 2 am finger stick BG if possible to make sure no hypoglycemic events overnight, and she is advised to bring her log book next time - Encouraged continuing diet and exercise - labs uptodate for diabetes complication prevention - she is update with eye exam #Blood Pressure -Today BP 150/67 -Currently antihypertensive regimen: on coreg and spironolactone -managed by PCP #Dyslipidemia, hx of stroke - on 80 mg atorvastatin daily -managed by PCP #Obesity Class I with serious comobidity - could not tolerate GLP-1 agonists and is trying weight loss with lifestyle modifications- diet and exercise - will check DST for weight gain irrespective of diet and physical activity - instructions given verbally and in writing #Hypothyroidism: Currently on armour thyroid 120 mg daily for 4 days and 150 mg daily on 3 days of the week. Dose change made in 05/2024 from 120 mg daily Recent TSH reviewed Managed by PCP- will defer to them-advised to check with her PCP I appreciated and encouraged her to continue the good work Scripts sent to pharmacy of pt choice: N/A RTC in 3 months I have confirmed and edited as necessary, the past medical, surgical, family, and social history asobtained by others. My final recommendations will be communicated back to the requesting physician by way of shared medical record or letter via US mail. Bean Isaac MD Endocrinology Associate Staff [facility] [place] [phone] Medical Decision Making: Problems: Moderate: 1+ chronic illnesses with change Data: Unique test result(s) reviewed: 3+ Independent interpretation of test from other physician/QHCP Risk: Moderate: Moderate risk from testing/treatment Medical Decision Making Level: 4 - Moderate documented in this encounterPark[facility]11-12-2024 NoteHNO ID: [id number] Author: JACKSON SARAVIA MA Service: ? Author Type: Death Claim Examiner Type: Progress Notes Filed: 08/09/2024 12:51 Note Text: POPULATION HEALTH NAVIGATION OUTREACH Action/August 09, 2024 [facility] INITIATIVE Reason for Outreach Care Gap/HCC or Scheduling Wellness Visits Care Gaps due: Medicare Annual Wellness Visit Patient Contacted: Unable or unnecessary to reach patient: Flipped existing appointment Updated appointment notes Navigation Signature: Jackson Saravia MA August 09, 2024 12:51 [facility]11-12-2024 History of Present illness Narrative* Jackson Saravia MA - 08/09/2024 12:51 PM EST POPULATION HEALTH NAVIGATION OUTREACH Action/August 09, 2024 AWV INITIATIVE Reason for Outreach Care Gap/HCC or Scheduling Wellness Visits Care Gaps due: Medicare Annual Wellness Visit Patient Contacted: Unable or unnecessary to reach patient: Flipped existing appointment Updated appointment notes Navigation Signature: Jackson Saravia MA August 09, 2024 12:51 PM documented in this encounterParkwood Hospital11-12-2024 NotePatient Outreach (NETNAV) LEIDY BLANCO ([id number]) 1955 F Date Time Provider Department 08/09/24 JACKSON SARAVIA NETNAV During your visit today, we recorded the following information about you: Jackson Saravia MA 08/09/2024 12:51 PM Signed POPULATION HEALTH NAVIGATION OUTREACH Action/August 09, 2024 AWV INITIATIVE Reason for Outreach Care Gap/HCC or Scheduling Wellness Visits Care Gaps due: Medicare Annual Wellness Visit Patient Contacted: Unable or unnecessary to reach patient: Flipped existing appointment Updated appointment notes Navigation Signature: Jackson Saravia MA August 09, 2024 12:51 PM Allergies As of Date: 08/09/2024 Noted Allergy Reaction ASA (SALICYLATES) 01/05/2006 4 - Hives 8 - GI Upset Comments: As a child GLUTEN 10/17/2016 5 - Intolerance METFORMIN 8 - GI Upset 9 - Itching PREDNISONE 10/02/2012 9 - Itching SULFA (SULFONAMIDE ANTIBIOTICS) 12/29/2005 2 - Rash Date Reviewed: 06/14/2024 Reviewed by: Sahara Mejia LPN - Fully Assessed Reason for Visit: Population Health Navigation Outreach [3910] Cmt: [facility] INITIATIVE Prescriptions as of 08/09/2024 - pantoprazole DR (PROTONIX) 40 mg tablet Take 1 tablet by mouth once daily. - Insulin [place], Disposable, (BD ULTRA-FINE MARIA T PEN NEEDLE) 32 gauge x 32 Use one needle for each dose. 1/day. [...] Insulin: No Problem List As Of Date 08/09/2024 Noted Resolved Diabetes mellitus type 2, controlled, [...] BMI 30-34.9 [E66.811] 03/23/2024 Encounter Status:Closed by JACKSON SARAVIA on 08/09/24[facility] 07-26-2024 [facility]10-28-2024 Telephone encounter Note* Telephone Encounter - Adelita Gomez MA - 07/25/2024 4:48 PM EDT Pt notified. Adelita Gomez MA [facility]10-28-2024 Miscellaneous Notes* Telephone Encounter - Adelita Gomez MA - 07/25/2024 4:48 PM EDT Pt notified. Adelita Gomez MA * Telephone Encounter - Preet Farrar DO - 07/25/2024 4:35 PM EDT Noted, would still recommend increased dose of lantus as below Preet Farrar DO * Telephone Encounter - Sahara Mejia LPN - 07/25/2024 9:55 AM EDT Pt. increased Amaryl to 3 mg. didn't feel it was working. Pt. feels it has been a few points lower around 150's to 160's * Telephone Encounter - Preet Farrar DO - 07/23/2024 11:33 AM EDT Does she need a refresher for nutrition or diabetes education? Increase lantus to 18 units once a day SQ Preet Farrar DO * Telephone Encounter - Lisa Aparicio RN - 07/21/2024 8:12 AM EDT Patient calls back in. Patient is concerned [...] is having DNC done on 07/26/2024. [facility] had faxed over surgical clearance form on 07/19/2024. This is on provider's desk. Patient is very worried about her blood sugars. * Telephone Encounter - Sahara Mejia LPN - 07/15/2024 10:55 AM EDT Blood Sugar results brought in by patient.Placed on Dr. Farrar desk. documented in this encounterParkwood Hospital10-28-2024 Telephone encounter Note * Telephone Encounter - Preet Farrar DO - 07/25/2024 4:35 PM EDT Noted, would still recommend increased dose of lantus as below Preet Farrar DO [facility]10-28-2024 Telephone encounter Note* Telephone Encounter - Sahara Mejia LPN - 07/25/2024 10:55 AM EDT Forms faxed as below. [facility]10-28-[facility] Miscellaneous Notes* Telephone Encounter - Sahara Coulter LPN - 07/25/2024 10:55 AM EDT Forms faxed as below. * Telephone Encounter - Chelo Prasad RN - 07/25/2024 10:48 AM EDT Lali at [facility] called again regarding this pt. Pt is to have procedure tomorrow and they are asking if Dr. Farrar's office received surgical clearance forms last week-they are in need of them being completed. Asking if someone can call them today with an update on the forms. Call Lali at [phone]. Chelo Prasad RN * Telephone Encounter - Sahara Mejia LPN - 07/19/2024 4:31 [address] Form on Dr. Farrar's desk * Telephone Encounter - Annmarie Canada RN - 07/19/2024 11:27 AM EDT Lali with [facility] called in and reports she had faxed over the surgical clearance form on 07/15/24. I let them know it wasn't charted that they had received it, so she is goingto send it again. Pt is going to have a DNC on 07/26/24, please fill out and fax back. Faxed recentthyroid labs and labs from April to [phone]. Let them know the other recent labs were external, and they would have to get them from [facility]. documented in this encounterParkwood Hospital10-28-2024 Telephone encounter Note * Telephone Encounter - Chelo Prasad RN - 07/25/2024 10:48 AM EDT Lali at [facility] called again regarding this pt. Pt is to have procedure tomorrow and they are asking if Dr. Farrar's office received surgical clearance forms last week-they are in need of them being completed. Asking if someone can call them today with an update on the forms. Call Lali at [phone]. Chelo Prasad RN [facility]10-28-[facility]24 Telephone encounter Note* Telephone Encounter - Sahara Mejia LPN - 07/25/2024 9:55 AM EDT Pt. increased Amaryl to 3 mg. didn't feel it was working. Pt. feels it has been a few points lower around 150's to 160's [facility]10-26-2024 Telephone encounter Note* Telephone Encounter - Preet Farrar DO - 07/23/2024 11:33 AM EDT Does she need a refresher for nutrition or diabetes education? Increase lantus to 18 units once a day SQ Preet Farrar DO [facility]10-24-2024 Telephone encounter Note* Telephone Encounter - Lisa Aparicio RN - 07/21/2024 8:18 AM EDT Patient notified of results and provider's instructions. Patient verbalizes understanding. Lisa Aparicio RN [facility]10-24-2024 Miscellaneous Notes* Telephone Encounter - Lisa Aparicio RN - 07/21/2024 8:18 AM EDT Patient notified of results and provider's instructions. Patient verbalizes understanding. Lisa Aparicio RN * Telephone Encounter - Preet Farrar DO - 07/20/2024 10:23 PM EDT Please inform patient that her TSH is slightly low/suppressed but her free t4 is back up into a normal range. Her free t3 is going to massively vary since she is on armor thyroid hormone with is at least 75% t3 and only 25% t4 hormone in this tablet Preet Farrar DO documented in this encounterParkwood Hospital10-24-2024 Telephone encounter Note * Telephone Encounter - Lisa Aparicio RN - 07/21/2024 8:12 AM EDT Patient calls back in. Patient is concerned [...] Patient is having DNC done on 07/26/2024. [facility] had faxed over surgical clearance form on 07/19/2024. This is on provider's desk. Patient is very worried about her blood sugars. [facility] Telephone encounter Note* Telephone Encounter - Preet Farrar DO - 07/20/2024 10:23 PM EDT Please inform patient that her TSH is slightly low/suppressed but her free t4 is back up into a normal range. Her free t3 is going to massively vary since she is on armor thyroid hormone with is at least 75% t3 and only 25% t4 hormone in this tablet Preet Farrar DO [facility]10-22-2024 Telephone encounter Note* Telephone Encounter - Sahara Mejia LPN - 07/19/2024 4:31 PM [address] Form on Dr. Farrar's desk [facility]10-22-[facility] Telephone encounter Note* Telephone Encounter - Annmarie Canada RN - 07/19/2024 11:27 AM EDT aLli with [facility] called in and reports she had faxed over the surgical clearance form on 07/15/24. I let them know it wasn't charted that they had received it, so she is goingto send it again. Pt is going to have a DNC on 07/26/24, please fill out and fax back. Faxed recentthyroid labs and labs from April to [phone]. Let them know the other recent labs were external, and they would have to get them from [facility]. [facility]-18-[facility] Telephone encounter Note* Telephone Encounter - Sahara Mejia LPN - 07/15/2024 10:55 AM EDT Blood Sugar results brought in by patient.Placed on Dr. Farrar desk. [facility]09-20-[facility] Telephone encounter Note* Telephone Encounter - Suzanna Coffey RN - 06/17/2024 11:42 AM EDT Patient reports [facility] ER prescribed her pantoprazole 40 mg daily, about a month ago, and she needs refills, only has 5 pills left. States she forgot to tell pcp about this at her recent appt. Last ov with pcp: 06-14-24 Next ov: 10-07-24 [facility]09-20-[facility] Miscellaneous Notes* Telephone Encounter - Suzanna Coffey RN - 06/17/2024 11:42 AM EDT Patient reports [facility] prescribed her pantoprazole 40 mg daily, about a month ago, and she needs refills, only has 5 pills left. States she forgot to tell pcp about this at her recent appt. Last ov with pcp: 06-14-24 Next ov: 10-07-24 documented in this encounterParkwood Hospital09-18-2024 Telephone encounter Note * Telephone Encounter - Kerry Nevarez LPN - 06/15/2024 9:53 AM EDT Patient calling asking to have another pen needle rx, she called pharmacy since other rx was causing so much bruising for her. Pending new rx to file to [facility]. Please advise The patient has been [...] Requested Prescriptions Pending Prescriptions Disp Refills Insulin [place], Disposable, (BD ULTRA-FINE MARIA T PEN NEEDLE) 32 gauge x 5/32 100 Each 11 Sig: Use one needle for each dose. 1/day. Kerry Nevarez LPN June 15, 2024 9:58 AM [facility]09-18-2024 Miscellaneous Notes* Telephone Encounter - Kerry Nevarez LPN - 06/15/2024 9:53 AM EDT Patient calling asking to have another pen needle rx, she called pharmacy since other rx was causing so much bruising for her. Pending new rx to file to [facility] pharmacy. Please advise The patient has been [...] Requested Prescriptions Pending Prescriptions Disp Refills Insulin [place], Disposable, (BD ULTRA-FINE MARIA T PEN NEEDLE) 32 gauge x 5/32 100 Each 11 Sig: Use one needle for each dose. 1/day. Kerry Nevaerz LPN June 15, 2024 9:58 AM documented in this encounterParkwood Hospital09-17-2024 NoteHNO ID: [id number] Author: PREET FARRAR, DO Service: ? Author Type: Physician Type: Progress Notes Filed: 06/14/2024 16:37 Note Text: Patient presents with: F/U 3 Month HPI: Leidy Blanco is a 68 year old female [...] thickened endometrial lining. Has been seen by SHIPPING ASSISTANT and had EMB and will be having a consult with Dr. Froylan Farnsworth SHIPPING ASSISTANT on 07/07 to potentially schedule MEREDITH. She [...] time. She does not check BP's generally. Leidy gets sporadic irregular exercise. PAST MEDICAL HISTORY [...] 1 tablet by mouth once daily. Insulin [place], Disposable, (PEN NEEDLE) 29 gauge x 1/2 Use one needle per dose. 1 per day glimepiride (AMARYL) 2 mg tablet Take 1 tablet by mouth two times a day with meals. SITagliptin phosphate (JANUVIA) 100 mg tablet Take 1 tablet by mouth once daily. carvedilol (COREG) 6.25 mg tablet Take 1 tablet by mouth two times a day with (more content not included)...[facility]09-17-2024 History of Present illness Narrative* Preet Farrar, - 06/14/2024 2:40 PM EDT Patient presents with: F/U 3 Month HPI: Leidy Blanco is a 68 year old female [...] thickened endometrial lining. Has been seen by SHIPPING ASSISTANT and had EMB and will be having a consult with Dr. Froylan Farnsworth SHIPPING ASSISTANT on 07/07 to potentially schedule MEREDITH. She [...] time. She does not check BP's generally. Leidy gets sporadic irregular exercise. PAST MEDICAL HISTORY [...] 1 tablet by mouth once daily. Insulin [place], Disposable, (PEN NEEDLE) 29 gauge x 1/2 [...] Type 2 DM - Uncontrolled Insulin: No Review of Systems: The remainder [...] agreed with the plan. Preet Farrar DO [address] [place] [address] documented in this encounterParkwood Hospital08-28-2024 History of Present illness Narrative* Catalina Young APRN.ENGINEERING TEST SPECIALIST - 05/25/2024 2:40 PM EDT 05/25/2024 Patient presents with: ER F/U: 05/22/2024 [facility] for left lower quadrant pain SUBJECTIVE: This is a 68 year old that is here today for Above Complaints. HOSPITAL/ER FOLLOW UP: Reason for visit: abdominal pain Which facility: [facility] Date of visit: 05/22/2024 Diagnosis: endometrial thickening Testing done: Blood work, CT ABD/PEL, urine Treatment given: pantoprazole and Zofran for epigastric discomfort Reports last night was in terrible pain. Zofran seemed to help. Blood sugar was elevated last nightat 242 this AM 177. Pain still in LLQ but seems to be mostly at night which she describes as sharp.Denies current pain, however she is worried about pain becoming bad again this evening. Bowels havebeen moving normally. Did make her appointment with [...] 1 tablet by mouth once daily. Insulin [place], Disposable, (PEN NEEDLE) 29 gauge x 1/2 [...] 2 DM - Uncontrolled .65 Insulin: No spironolactone (ALDACTONE) 25 mg tablet [...] 2 DM - Uncontrolled 65 Insulin: No No current facility-administered medications for [...] back to ER- will only prescribe a shortcourse. Discussed can cause drowsiness so she should not drive or operate heavy machinery while taking. May cause constipation so recommend OTC stool softener and staying well hydrated, verbalizes understanding PDMP website checked and validated. All prescriptions have been APPROPRIATELY filled. No suspiciousactivity was identified. 05/25/2024 by Catalina Young APRN.DEREK - follow-up with SHIPPING ASSISTANT and PCP Catalina Young APRN.ENGINEERING TEST SPECIALIST Prescription instructions reviewed with patient as applicable. [...] Level: 4 - Moderate documented in this encounterParkwood Hospital08-28-2024 NoteHNO ID: [id number] Author: CATALINA YOUNG APRN.DEREK Service: ? Author Type: Nurse Practitioner Type: Progress Notes Filed: 05/25/2024 15:19 Note Text: 05/25/2024 Patient presents with: ER F/U: 05/22/2024 [facility] for left lower quadrant pain SUBJECTIVE: This is a 68 year old that is here today for Above Complaints. HOSPITAL/ER FOLLOW UP: Reason for visit: abdominal pain Which facility: [facility] Date of visit: 05/22/2024 Diagnosis: endometrial thickening [...] 1 tablet by mouth once daily. Insulin [place]qu[place], Disposable, (PEN NEEDLE) 29 gauge x 1/2 [...] DTaP,Tdap,Td Vaccine(1 - Td (more content not included)...[facility]08-26-2024 Telephone encounter Note* Telephone Encounter - Suzanna Coffey RN - 05/23/2024 1:16 PM EDT The patient has been identified by name [...] Coffey RN May 23, 2024 1:16 PM [facility]08-26-2024 Miscellaneous Notes* Telephone Encounter - Suzanna Coffey RN - 05/23/2024 1:16 PM EDT The patient has been identified by name [...] 23, 2024 1:16 PM documented in this encounterParkwood Hospital08-26-2024 Telephone encounter Note * Telephone Encounter - Fernanda Ulloa LPN - 05/23/2024 9:31 AM EDT Pt called in and was seen in the [facility] ER last night 05-22-24 for left side abdominal pain. Pt had a CT done. Showed thickened endometrial lining of 1/4 cm no other acute findings. pt's provider/team not available. Pt scheduled with provider. Fernanda Ulloa LPN [facility]08-26-2024 Miscellaneous Notes* Telephone Encounter - Fernanda Ulloa LPN - 05/23/2024 9:31 AM EDT Pt called in and was seen in the [facility] ER last night 05-22-24 for left side abdominal pain. Pt had a CT done. Showed thickened endometrial lining of 1/4 cm no other acute findings. pt's provider/team not available. Pt scheduled with provider. Fernanda Ulloa LPN documented in this encounterParkwood Hospital08-13-2024 Instructions* Patient Instructions* Bean Isaac MD - 05/10/2024 2:25 PM EDT Please continue the same dose of medication for now- please bring log next time documented in this encounterParkwood Hospital08-13-2024 Telephone encounter Note * Telephone Encounter - Sahara Mejia LPN - 05/10/2024 2:05 PM EDT Pt. dropped of Bp readings. Placed on Dr. Farrar's desk. [facility] Work Phone: 1(455) 990-594208-13-2024 Miscellaneous Notes* Telephone Encounter - Sahara Mejia LPN - 05/10/2024 2:05 PM EDT Pt. dropped of Bp readings. Placed on Dr. Farrar's desk. documented in this encounterParkwood Hospital08-13-2024 NoteHNO ID: [id number] Author: BEAN ISAAC MD Service: ? Author Type: Physician Type: Progress Notes Filed: 05/11/2024 11:16 Note Text: [facility] Initial Clinic Visit Note Referred by: PCP- Preet Farrar DO History of present illness: Leidy Blanco is a 68 year old female [...] awareness: n/a Lifestyle -Exercise: 30 mins on [place] daily -Diet: Breakfast: 3 eggs, 1 slice [...] REPAIR Comment: Lap umbil (more content not included)...[facility] 05-10-2024 History of Present illness Narrative* Bean Isaac MD - 05/10/2024 1:43 PM EDT [facility] Initial Clinic Visit Note Referred by: PCP- Preet Farrar DO History of present illness: Leidy Blanco is a 68 year old female here today for evaluation of Type 2 DM, she also has a PMH ofHTN, HLD, CVA, Obesity class I, Hypothyroidism, Celiac [...] awareness: n/a Lifestyle -Exercise: 30 mins on Fren[place] daily -Diet: Breakfast: 3 eggs, 1 slice [...] Outpatient Medications Medication Sig Dispense Refill Insulin [place], Disposable, (PEN NEEDLE) 29 gauge x 1/2 [...] 2 DM - Uncontrolled E11.65 Insulin: No 100 Strip 11 atorvastatin (LIPITOR) [...] 2 DM - Uncontrolled E11.65 Insulin: No 100 Each 11 flash glucose [...] 204* 156* 182* -- -- 179* -- --192* 138* BUN -- -- -- 8 -- [...] 2 DM with macrovascular complications and current half-way insulin use -A1c 6.5% on 01/06/2024 -eGFR 95 on 03/21/24 -Current regimen: lantus 12 units daily in the morning (started using insulin 6 weeks ago), Sitagliptin 100 mg daily,glimepiride 2 mg daily -she could not tolerate [...] past medical, surgical, family, and social history asobtained by others. My final recommendations will be communicated back to the requesting physician by way of shared medical record or letter via US mail. Bean Isaac MD Endocrinology Associate Staff [facility] [place] [phone] Medical Decision Making: Problems: Moderate: 1+ chronic illnesses with change Data: Unique test result(s) reviewed: 3+ Independent interpretation of test from other physician/QHCP Medical Decision Making Level: 4 - Moderate documented in this encounterParkwood Hospital07-23-2024 Miscellaneous Notes* Telephone Encounter - Sahara Mejia LPN - 04/19/2024 4:56 PM EDT Pt. informed. * Telephone Encounter - Preet Farrar DO - 04/19/2024 4:49 PM EDT Ok to take the Lantus in the AM or the PM, whichever she will be consistent with daily. Increase dose to 12 units and notify in 2-3 weeks her blood glucose readings. They are improving Preet Farrar DO * Telephone Encounter - Yesi Kitchen RN - 04/19/2024 4:25 PM EDT Pt calling in wondering if Dr. Farrar has reviewed her blood sugars. She is unsure if she needs to be changing her dosage of insulin. She was just started on insulin on 03/21/24. Pt states she is taking 10 units of the Lantus insulin in the morning around 9 am after breakfast. Per med sig, it saysdaily at bedtime. Pt states she thought that [...] morning or in the evening and if sheneeds to adjust the dose at all. Notified nurse Ainsley to let Dr. Farrar know to review previous blood sugars pt has already brought in too. * Telephone Encounter - Sofia Rodriguez MA - 04/12/2024 4:04 PM EDT Glucose readings on JG desk. Will await new glucose readings. Sofia Rodriguez MA * Telephone Encounter - Lisa Aparicio RN - 04/12/2024 12:36 PM EDT Patient calls and states that she had dropped off blood sugar readings last week. Patient asking ifthose were received. Patient notified that reading are currently in Dr. Farrar's box to be reviewed. Patient voiced understanding. Patient states that she is going to drop off more blood sugar readings to go along with ones she previously dropped off. Lisa Aparicio RN documented in this encounterParkwood Hospital07-23-2024 Telephone encounter Note * Telephone Encounter - Sahara Mejia LPN - 04/19/2024 4:56 PM EDT Pt. informed. [facility] Telephone encounter Note* Telephone Encounter - Preet Farrar DO - 04/19/2024 4:49 PM EDT Ok to take the Lantus in the AM or the PM, whichever she will be consistent with daily. Increase dose to 12 units and notify in 2-3 weeks her blood glucose readings. They are improving Preet Farrar DO [facility]07-23-2024 Telephone encounter Note* Telephone Encounter - Yesi Kitchen RN - 04/19/2024 4:25 PM EDT Pt calling in wondering if Dr. Farrar has reviewed her blood sugars. She is unsure if she needs to be changing her dosage of insulin. She was just started on insulin on 03/21/24. Pt states she is taking 10 units of the Lantus insulin in the morning around 9 am after breakfast. Per med sig, it saysdaily at bedtime. Pt states she thought that [...] morning or in the evening and if sheneeds to adjust the dose at all. Notified nurse Ainsley to let Dr. Farrar know to review previous blood sugars pt has already brought in too. [facility]07-16-2024 Telephone encounter Note* Telephone Encounter - Sofia Rodriguez MA - 04/12/2024 4:04 PM EDT Glucose readings on JG desk. Will await new glucose readings. Sofia Rodriguez MA [facility]07-16-2024 Telephone encounter Note* Telephone Encounter - Lisa Aparicio RN - 04/12/2024 12:36 PM EDT Patient calls and states that she had dropped off blood sugar readings last week. Patient asking ifthose were received. Patient notified that reading are currently in Dr. Farrar's box to be reviewed. Patient voiced understanding. Patient states that she is going to drop off more blood sugar readings to go along with ones she previously dropped off. Lisa Aparicio RN [facility]06-26-2024 Telephone encounter Note* Telephone Encounter - Donna Kimble MA - 03/23/2024 10:47 AM EDT Patient was notified Donna Kimble MA [facility]06-26-2024 Miscellaneous Notes* Telephone Encounter - Donna Kimble MA - 03/23/2024 10:47 AM EDT Patient was notified Donna Kimble MA * Telephone Encounter - Preet Farrar DO - 03/23/2024 7:54 AM EDT Needs to increase her armor thyroid to 120 mg 7 days a week Preet Farrar DO * Telephone Encounter - Annmarie Canada RN - 03/22/2024 4:53 PM EDT Please address the thyroid issue. Per previous note,Pt notified of results, pt states she takes 120mg of armour thyroid 6 days weekly as prescribed. Med list states she is to be taking it daily but she said she was told to take it 6 days/wk because of a low level. States she has not missed any doses.. Please call and advise. * Telephone Encounter - Preet Farrar DO - 03/22/2024 4:45 PM EDT The following approved medication requests have been transmitted electronically. Requested Prescriptions Signed Prescriptions Disp Refills Insulin [place]qu[place], Disposable, (PEN NEEDLE) 29 gauge x 1/2 100 Each 11 Sig: Use one needle per dose. 1 per day Authorizing Provider: PREET FARRAR DO * Telephone Encounter - Annmarie Canada RN - 03/22/2024 4:36 PM EDT Pt called in and reports she needs the needles that go with her insulin pen. She reports she has one left that came with the Ozempic she is no longer taking. She reports those were Nova fine + 36 g 4mm 10/13 in. I couldn't find this on our order list. Pt needs needles by tomorrow morning. * Telephone Encounter - Gretchen Dorantes LPN - 03/22/2024 9:35 AM EDT Pt notified of results, pt states she takes 120mg of armour thyroid 6 days weekly as prescribed. Med list states she is to be taking it daily but she said she was told to take it 6 days/wk because ofa low level. States she has not missed any doses. Also lantus insulin was sent to the pharmacy yesterday but there was no Rx for needles, pt states she had 3 needles left from another medication so was able to do first dose. Needs an Rx. Pt uses [facility] in [place]. Gretchen Dorantes LPN * Telephone Encounter - Preet Farrar DO - 03/22/2024 7:27 AM EDT Please inform patient that her free t4 level is low. TSH is stable. What does of armour thyroid supplement is she taking? Any missed doses? /Preet Farrar DO documented in this encounterParkwood Hospital06-26-2024 Telephone encounter Note * Telephone Encounter - Preet Farrar DO - 03/23/2024 7:54 AM EDT Needs to increase her armor thyroid to 120 mg 7 days a week Preet Farrar DO [facility]06-25-2024 Telephone encounter Note* Telephone Encounter - Annmarie Canada RN - 03/22/2024 4:53 PM EDT Please address the thyroid issue. Per previous note,Pt notified of results, pt states she takes 120mg of armour thyroid 6 days weekly as prescribed. Med list states she is to be taking it daily but she said she was told to take it 6 days/wk because of a low level. States she has not missed any doses.. Please call and advise. [facility] Telephone encounter Note* Telephone Encounter - Preet Farrar DO - 03/22/2024 4:45 PM EDT The following approved medication requests have been transmitted electronically. Requested Prescriptions Signed Prescriptions Disp Refills Insulin [place], Disposable, (PEN NEEDLE) 29 gauge x 1/2 100 Each 11 Sig: Use one needle per dose. 1 per day Authorizing Provider: PREET FARRAR DO [facility]06-25-2024 Telephone encounter Note* Telephone Encounter - Annmarie Canada RN - 03/22/2024 4:36 PM EDT Pt called in and reports she needs the needles that go with her insulin pen. She reports she has one left that came with the Ozempic she is no longer taking. She reports those were Nova fine + 36 g 4mm 10/13 in. I couldn't find this on our order list. Pt needs needles by tomorrow morning. [facility]-25-[facility] Telephone encounter Note* Telephone Encounter - Gretchen Dorantes LPN - 03/22/2024 9:35 AM EDT Pt notified of results, pt states she takes 120mg of armour thyroid 6 days weekly as prescribed. Med list states she is to be taking it daily but she said she was told to take it 6 days/wk because ofa low level. States she has not missed any doses. Also lantus insulin was sent to the pharmacy yesterday but there was no Rx for needles, pt states she had 3 needles left from another medication so was able to do first dose. Needs an Rx. Pt uses [facility] in [place]. Gretchen Dorantes LPN [facility]06-25-[facility]24 Telephone encounter Note* Telephone Encounter - Preet Farrar DO - 03/22/2024 7:27 AM EDT Please inform patient that her free t4 level is low. TSH is stable. What does of armour thyroid supplement is she taking? Any missed doses? /Preet Farrar DO [facility]06-24-[facility] History of Present illness Narrative* Preet Farrar DO - 03/21/2024 10:21 AM EDT Transitional Care Management TCM Eligibility Documentation The following information was gathered during patient outreach 03/10/2024 Date of Outreach: Outreach Attempt 1: Contact Made Date of Discharge 03/09/2024 Provider Documentation Leidy Blanco is a 68 year old female here today for a follow up from recent hospitalization. I have reviewed the patient's hospital course including discharge summary, discharge medications , followup needs, and labs (notable for hyperglycemia) with the patient and any family members present at today's visit. HPI She feels that she is struggling recently with controlling her blood glucose She was taking ozempic GLP1 agonist and had some SE of nausea and GI upset. When she was seen at [facility] for hyperglycemia and fatigue as well as GI upset and vomiting and diarrhea, she was diagnosed with extreme hyperglycemia in the 400- 500s without signs of ketoacidosis. She was also [...] with her hyperglycemia Overall she is managing okay Preet Farrar DO documented in this encounterParkwood Hospital06-13-2024 History of Present illness Narrative* Suzanna Coffey RN - 03/10/2024 1:20 PM EDT Patient is scheduled for Hosp f/u with Dr. Farrar on 03-21-24. * Jacqueline Candelario APRN.CNP - 03/10/2024 12:24 PM EDT Please make appointment. Thank you, Jacqueline Candelario APRN.ENGINEERING TEST SPECIALIST * Suzanna Coffey RN - 03/10/2024 8:06 AM EDT TRANSITION CARE MANAGEMENT (TCM) INITIAL CONTACT Death Claim Examiner Outreach Provider Action/FYI: Patient would like to discuss ozempic- concern hospital stopping it- and what to do about her DM. Initial contact with patient post discharge, spoke to patient. Patient identified by name and . TRANSITION CARE MANAGEMENT INITIAL OUTREACH DOCUMENTATION: 03/10/2024 Date of Outreach: Outreach Attempt 1: Contact Made Date of Discharge 03/09/2024 SUMMARY: -Pt discharged from [facility] on 03-09-24. -Admitted for: Gastrointestinal possibly related [...] from recent hospitalization: Epic documented in this encounterParkwood Hospital06-12-2024 [facility]06-11-2024 [facility]06-03-2024 Telephone encounter Note* Telephone Encounter - Neva Thomas LPN - 02/29/2024 11:30 AM EDT Patient has been identified by name and [...] Please advise. Thank you. Neva Thomas LPN. [facility]06-03-2024 Miscellaneous Notes* Telephone Encounter - Neva Thomas LPN - 02/29/2024 11:30 AM EDT Patient has been identified by name and [...] you. Neva Thomas LPN. documented in this encounterParkwood Hospital05-20-2024 Telephone encounter Note * Telephone Encounter - Latosha Osei RN - 02/15/2024 4:32 PM EDT Spoke with patient. Given message from provider's office. Patient verbalizes understanding. Latosha Osei RN [facility]05-20-2024 Miscellaneous Notes* Telephone Encounter - Latosha Osei RN - 02/15/2024 4:32 PM EDT Spoke with patient. Given message from provider's office. Patient verbalizes understanding. Latosha Osei RN * Telephone Encounter - Jacqueline Candelario APRN.CNP - 02/15/2024 4:28 PM EDT No dietary restrictions needed -- she eats very healthy to begin with. Elevation after meals is expected and normal. No concerns. Thank you, Jacqueline Candelario APRN.DEREK * Telephone Encounter - Latosha Osei RN - 02/15/2024 1:33 PM EDT Leidy Blanco is a 68 year old female [...] blood sugar readings. Asking for dietary recommendations. Latosha Osei RN documented in this encounterParkwood Hospital05-20-2024 Telephone encounter Note * Telephone Encounter - Jacqueline Candelario APRN.CNP - 02/15/2024 4:28 PM EDT No dietary restrictions needed -- she eats very healthy to begin with. Elevation after meals is expected and normal. No concerns. Thank you, Jacqueline Candelario APRN.DEREK [facility]05-20-2024 Telephone encounter Note* Telephone Encounter - Latosha Osei RN - 02/15/2024 1:33 PM EDT Leidy Blanco is a 68 year old female [...] blood sugar readings. Asking for dietary recommendations. Latosha Osei RN [facility]05-07-2024 Telephone encounter Note* Telephone Encounter - Annmarie Canada RN - 02/02/2024 8:57 AM EDT Pt reports she was taken off of her Jardiance at her last appointment and now she is only on the Ozempic. She states the provider told her it would be some times before her body started working with the medication. She states with the Jardiance she was supposed to eat carbs. She was wanting to knowif with just the Ozempic if she is [...] primary care: 03/21/2024 Please advise. Thank you. Annmarie Canada RN. [facility]05-07-2024 Miscellaneous Notes* Telephone Encounter - Annmarie Canada RN - 02/02/2024 8:57 AM EDT Pt reports she was taken off of her Jardiance at her last appointment and now she is only on the Ozempic. She states the provider told her it would be some times before her body started working with the medication. She states with the Jardiance she was supposed to eat carbs. She was wanting to knowif with just the Ozempic if she is [...] primary care: 03/21/2024 Please advise. Thank you. Annmarie Canada RN. documented in this encounterParkwood Hospital05-01-2024 History of Present illness Narrative* Jacqueline Candelario APRN.ENGINEERING TEST SPECIALIST - 01/27/2024 10:56 AM EDT Chief Complaint Patient presents with: follow up on b/s: States thinks yeast infection back which is a large side effect of Jardiance. States not going to keep going through this HPI Leidy Blanco is a 68 year old female who presents here today for Above Complaints. Leidy is an established patient of Dr. Farrar, [...] upset so this was discontinued. Not interested intrying this again. Pt is on a very [...] 2) due on 11/13/2024 Covid-19 Vaccine(1 - season) due on 11/13/2024 Pneumococcal Vaccine: 65+(1 [...] Patient agreeable to treatment plan. Jacqueline Corbin APRN.ENGINEERING TEST SPECIALIST [address] [place] [address] documented in this encounterParkwood Hospital04-17-2024 Miscellaneous Notes* Telephone Encounter - Kerry Nevarez LPN - 01/13/2024 2:48 PM EDT Patient returned call and went over notes below from Jacqueline Candelario 911 EMERGENCY SERVICES DISPATCHER with understanding. Aware rx sent to pharmacy. * Telephone Encounter - Gini Martinez LPN - 01/13/2024 2:39 PM EDT Left message to return call. * Telephone Encounter - Jacqueline Candelario APRN.CNP - 01/13/2024 2:25 PM EDT Yes, this can likely be due to Jardiance regimen. Go ahead and take diflucan to treat yeast infection this time and if symptoms return we will switchdiabetes regimen at our next appointment. We will discuss options. Thank you, Jacqueline Candelario APRN.ENGINEERING TEST SPECIALIST * Telephone Encounter - Tahira Stern LPN - 01/13/2024 2:06 PM EDT Patient calling again, asking if she should stop the Jardiance because she does not want chronic yeast infections. Please advise. * Telephone Encounter - Kerry Nevarez LPN - 01/12/2024 3:16 PM EDT Patient calling she was treated for yeast infection on 01/01 from [facility]. Now she has same symptoms itching and white vaginal drainage. Patient now wondering if it is from taking Jardiance. Patient said her blood sugars have been higher in the morning at times. She said she is taking Ozempic and Jardiance. Patient uses [facility] for her pharmacy. Please advise documented in this encounterParkwood Hospital04-10-2024 History of Present illness Narrative* Jacqueline Candelario APRN.ENGINEERING TEST SPECIALIST - 01/06/2024 11:00 AM EDT Chief Complaint Patient presents with: blood sugars up and down: States does not know how to eat keeps going up after eating. HPI Leidy Blanco is a 68 year old female who presents here today for Above Complaints. Leidy is an established patient of Dr. Farrar, [...] encouraged pt to consider speaking with a lap maker/senior application security consultant to discuss diet management, if agreeable. Patient would rather hold off on speaking with a specialist as of this time. Asking if Dr. Farrarwould be able to advise her at this [...] advise her. Pt was then [facility] d/t vaginal itching. UTI and STD testing completed. Treatedwith Diflucan d/t + white discharge . Called [...] 2) due on 11/13/2024 Covid-19 Vaccine(1 - season) due on 11/13/2024 Pneumococcal Vaccine: 65+(1 [...] spent approximately 35 minutes in counseling regarding medicationsand test results and coordinating care. Prescription instructions reviewed with patient as applicable. Potential red flag symptoms discussed with the patient. Reviewed appropriate action plan to take if red flag symptoms occur. Patient agreeable to treatment plan. Jacqueline Corbin APRN.ENGINEERING TEST SPECIALIST [address] [place] [address] documented in this encounterParkwood Hospital04-10-2024 Miscellaneous Notes* Telephone Encounter - Jacqueline Candelario APRN.CNP - 01/06/2024 10:02 AM EDT Noted. Will address at appointment today. Thank you, Jacqueline Candelario APRN.DEREK * Telephone Encounter - Fernanda Ulloa LPN - 01/06/2024 9:06 AM EDT Pt called in to check status. Booked pt for apt today. Fernanda Ulloa LPN * Telephone Encounter - Fernanda Ulloa LPN - 12/31/2023 11:56 AM EDT Pt called to check status and message [...] at this next week and advise her. Fernanda Ulloa LPN * Telephone Encounter - Chelo Prasad RN - 12/24/2023 3:07 PM EDT Patient calling to state she is having [...] encouraged pt to consider speaking with a lap maker/senior application security consultant to discuss diet management, if agreeable. Patient would rather hold off on speaking with a specialist as of this time. Asking if Dr. Farrarwould be able to advise her at this time? Thank you. documented in this encounterParkwood Hospital04-10-2024 Miscellaneous Notes* Telephone Encounter - Fernanda Ulloa LPN - 01/06/2024 8:57 AM EDT Patient has been identified by name and date of : Yes, Provider Dr. Farrar Date 01/06/24 Time8:58 am Patient phones for refill(s): Requested Prescriptions [...] primary care: 03/21/2024 Please advise. Thank you. Fernanda Ulloa LPN. documented in this encounterParkwood Hospital04-07-2024 Miscellaneous Notes* Telephone Encounter - Sam-Altagracia Borges APRN.ENGINEERING TEST SPECIALIST - 01/03/2024 8:03 AM EDT Patient identified by name and date of . Patient advised of + yeast and BV test result. She was prescribed diflucan at yesterday's visit. I sent Rx for Flagyl to her pharmacy today. Altagracia Welch APRN.DEREK documented in this encounterParkwood Hospital04-06-2024 History of Present illness Narrative* Jemima Iyer APRN.CNP - 01/02/2024 12:38 PM EDT This note was created using NoteWriter. Subjective Leidy Blanco is a 68 year old female. [...] surgery Denies using homeopathic or OTC medicines PANTRY STEWARD/STEWARDESS PCP is Dr. Farrar The history is provided by the patient. No speech and language clinician was used. Vaginal Problem This is a [...] glands, vertigo, visual change, vomiting or weakness. Nothingaggravates the symptoms. She has tried nothing for [...] kg (163 lb 5.8 oz) SpO2 98% BMI31.90 kg/m Physical Exam Vitals and nursing note reviewed. Exam conducted with a poultry hatchery supervisor present. Constitutional: General: She is not in [...] 1000 mg POC reveals sugar 140 Jemima Iyer APRN.ENGINEERING TEST SPECIALIST documented in this encounterParkwood Hospital04-06-2024 Miscellaneous Notes* Telephone Encounter - Latosha Osei RN - 01/02/2024 9:37 AM EDT Patient calling with complaint of moderate to severe vaginal itching. No other symptoms reported. She thinks she may have a yeast infection due to elevated blood sugars. Reviewed triage protocol guidelines with patient. Disposition: See PCP within 24 hours. Advised EC evaluation. Patient is not sure she will [facility]. Advise EC online. She may try this. Latosha Osei RN Reason for Disposition Itching or [...] vaginal bleeding, pain with urination, injury to genitalarea, vaginal foreign body) 8. : NO Protocols used: Vaginal Kmoqmzsa-XCUNX-ZB, Vulvar Ihxvrbjy-NLFGC-EH documented in this encounterParkwood Hospital03-13-2024 History of Present illness Narrative* Preet Farrar DO - 12/09/2023 6:05 PM EDT No chief complaint on file. HPI: Leidy Blanco is a 68 year old female who presents to the office today for review of health conditions. Concerns today: Recently she has been overwhelmed with stressors with the hospital taking her off her HTN medications and her BLOOD PRESSURE was out of control. She was seen in follow up after this by her Sub Master Dr. Overton that she sees for BLOOD PRESSURE control and restarted on spironolactone as well as coreg twice a day. She is tolerating these without concern. She is frustrated recently with her blood glucose being from 180-200s in the morning sometimes whenshe wakes up. She doesn't feel that her medications are working as they should- she is taking glimepiride twice a day as well as ozempic injection 1 mg per week without SE. She feels that she needs amedication change She is going to be seeing Dr. Bradley vascular specialist in the next 1 week after additional testing for carotid artery atherosclerosis- she is having a CT done next week. She is willing to see a review rn- hasn't had any obvious cardiac symptoms but she is concerned since she does have a history of tobacco use / smoking and has significant artery disease in carotidarteries. Ms. Blanco has past history of diabetes. [...] time. She does not check BP's generally. Leidy gets sporadic irregular exercise. PAST MEDICAL HISTORY [...] - ICD9: 440.1, ICD10: I70.1 F/u with Sub Master, hx of 6. Other ulcerative colitis without [...] at this time, she denies depression Preet Farrar DO To ER if develops chest pain, shortness of breath, or severe worsening of symptoms. Discussed risks, benefits, alternatives, and potential side effects of medications. Patient expressed understanding and agreed with the plan. Preet Farrar DO [address] [place] [address] documented in this encounterParkwood Hospital03-12-2024 Miscellaneous Notes* Telephone Encounter - Kerry Nevarez LPN - 12/08/2023 3:13 PM EDT Patient has been identified by name and [...] you. Kerry Nevarez LPN. documented in this encounterParkwood Hospital02-28-2024 Miscellaneous Notes* Telephone Encounter - Kerry Nevarez LPN - 11/25/2023 9:50 AM EST Phoned patient aware rx was sent to pharmacy. * Telephone Encounter - Jacqueline Candelario APRN.DEREK - 11/25/2023 9:27 AM EST The following approved medication requests have been transmitted electronically. Requested Prescriptions Signed Prescriptions Disp Refills busPIRone (BUSPAR) 5 mg tablet 90 tablet 2 Sig: Take 1 tablet by mouth three times a day as needed. Authorizing Provider: JACQUELINE CANDELARIO APRN.ENGINEERING TEST SPECIALIST * Telephone Encounter - Gretchen Dorantes LPN - 11/25/2023 8:18 AM EST At office visit 11/19/23 pt & Sunita Candelario discussed Burspar, pt has decided she would like to try it. Please send Rx to [facility] in [place] & notify pt when it has been sent in. Gretchen Dorantes LPN documented in this encounterParkwood Hospital02-28-2024 Hospital Discharge instructions Patient Education 11/25/2023 03:00:04 [...] that stimulate the heart. This includes many lgvb-mzm-jgwoaut cold and sinus decongestant pills and sprays, as well as diet pills. Check the warnings about high blood pressure onthe label. Before buying any ysmr-dro-ymuaqml medicines or supplements, always ask the pharmacist [...] you. Also, enroll in a stop-smoking program tomake it more likely that you will quit for good. Learn how to handle stress. This is an important part of any program to lower blood pressure. Learnabout relaxation methods like meditation, yoga, or biofeedback. [...] one of these at most pharmacies. The [place] [employer] recommends the following guidelines for [...] the upper part of the arm at heartlevel. Place the middle of the cuff directly [...] appointment as directed. Bring the record of yourhome blood pressure readings to the appointment. When to seek medical advice Call your healthcare provider right away if any of these occur: Blood pressure reaches a systolic (upper number) of 180 or higher OR a diastolic (bottom number) of110 or higher Chest pain or shortness of breath Severe headache Throbbing or rushing sound in the ears Nosebleed Sudden severe pain in your belly (abdomen) Extreme drowsiness, confusion, or fainting Dizziness or spinning sensation (vertigo) Weakness of an arm or leg or one side of the face You have problems speaking or seeing [id number] [employer]. [address] [place] [address], [place] [address]. All rights reserved. This information is not intended as a substitute for professional medical care. Always follow yourhealthcare professional's instructions. Follow Up Care 11/24/2023 18:46:50 With:RAY OVERTON Address: [address] [place] [phone] When:2-4 days [facility] Emergency department Discharge summary Discharge Instructions Thank you for allowing [facility] to assist you with your healthcare needs. The following is importantdischarge information regarding your hospital visit. Diagnosis from Today's Visit Chest pain What to Do Next Instructions from Your Care Team No qualifying data available. Post Acute Orders No qualifying data available. You Need to Schedule the Following Appointments Follow Up with RAY OVERTON When Within 2-4 days Where: [address] [place] [phone] Allergies Glutens metFORMIN predniSONE salicylates sulfa drug Medications Please ask your primary doctor or pharmacist before taking any other medication not listed, including over the counter drugs, herbal medications, vitamins and or supplements as they may interact withyour home medications. What How Much When Instructions [...] BY MOUTH AT BEDTIME Unchanged thyroid desiccated ([place] Thyroid 120 mg oral tablet) 32 EA, [...] that stimulate the heart. This includes many mmum-zvr-vjkcjui cold and sinus decongestant pills and sprays, as well as diet pills. Check the warnings about high blood pressure onthe label. Before buying any rvat-zyr-ghnogiy medicines or supplements, always ask the pharmacist [...] you. Also, enroll in a stop-smoking program tomake it more likely that you will quit for good. Learn how to handle stress. This is an important part of any program to lower blood pressure. Learnabout relaxation methods like meditation, yoga, or biofeedback. [...] one of these at most pharmacies. The [place] [employer] recommends the following guidelines for [...] the upper part of the arm at heartlevel. Place the middle of the cuff directly [...] appointment as directed. Bring the record of yourhome blood pressure readings to the appointment. When to seek medical advice Call your healthcare provider right away if any of these occur: Blood pressure reaches a systolic (upper number) of 180 or higher OR a diastolic (bottom number) of110 or higher Chest pain or shortness of breath Severe headache Throbbing or rushing sound in the ears Nosebleed Sudden severe pain in your belly (abdomen) Extreme drowsiness, confusion, or fainting Dizziness or spinning sensation (vertigo) Weakness of an arm or leg or one side of the face You have problems speaking or seeing [phone] [employer] [address] [place] [address]. All rights reserved. This information is not intended as a substitute for professional medical care. Always follow yourhealthcare professional's instructions. Additional Information VACCINATE! IT SAVES LIVES! Members of the community who have not yet received the COVID-19 vaccine and would like to receive it can visit one of [facility] vaccine clinics. There are many vaccine clinic locations within the [facility]. For locations and available times, please visit www.gettheshot.coronavirus.[place].gov/. It is important to note that some COVID mobile vaccine clinics are held outdoors and may be canceled in rainy or stormy conditions. To learn more about pediatric vaccinations (ages 5-11), we invite you to visit the [facility] webpage. https://www.[facility].org/pages/0904-Cjjbr-Bhbyijylawc-Acjugsisjw-Mwvqh-Tld stions.htmlTo learn more about the COVID-19 vaccine, we invite you to visit the CDC website for a list of frequently asked questions. https://www.cdc.gov/coronavirus/2019-ncov/vaccines/faq.html [facility] Patient Portal Access Instructions: Stay connected with your healthcare team and access your personal medical information anytime with the [facility] Patient Portal. If you would like a full copy of your medical records please contact the [facility] Medical Records Department Thursday through Thursday between 8a.m. and 4:30p.m. Please follow the directions below to access the portal: 1.Access the email account you provided upon registration to the [facility].2.Look for an invitation email from [facility].3.Open the email and access the invitation link: Accept Invitation to [facility]4.Fill in the required drake to create your account. Sign into www.[employer] with your username and password that you [...] you will allow to register on the [facility] Patient Portal for access to your information. You can also access the [facility] Patient Portal on the [employer]. Simply click on Health Records under [employer] and then click on the ARI logo. HOW TO SAFELY DISPOSE OF PRESCRIPTION MEDICATIONS Please use one of the following methods to safely dispose of your unused medications. 1.Use a drug disposal kit: the drug disposal pouch allows you to safely discard your old and unuseddrugs. Ask your nurse to give you one when you are discharged.2.Visit a local take-back location: Many local pharmacies and police departments have programs that collect old and unwanted prescriptiondrugs. Call your local pharmacy or go to http://bit.[employer]/9Q1Ln7c to find one close to you.3.Make use of household items: Use cat litter or old coffee grounds to dispose medications if other options arenot available. Mix your drugs with these household products, seal them in an airtight container andthrow it into the garbage. Call [facility]: [phone] to be sure your drugs can be [...] drowsiness, such as benzodiazepines, also known as benzos,including diazepam and alprazolam, muscle relaxants or sleep aids. Never sell or share prescriptionopioids. This is illegal. Store opioids in a secure place and out of reach of others (including children, family, friends and visitors). The last page(s) of this document has been signed and retained as a CHART COPY Signatures Patient Education Materials Hypertension, Established Medication Leaflets My discharge plan and instructions have been reviewed and explained to me and IFRANCIS RITA G understand my current condition and have read and understand these discharge instructions. I have received a written copy of the plan/instructions. If I have questions, I am aware that I should contact my doctor. 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 Thank you, Jacqueline Candelario APRN.CNP documented in this encounterParkwood Hospital02-22-2024 History of Present illness Narrative* Jacqueline Candelario APRN.CNP - 11/19/2023 9:18 AM EST Chief Complaint Patient presents with: Hypertension HPI Leidy Blanco is a 68 year old female who presents here today for Above Complaints. Leidy is an established patient of Dr. Farrar, [...] office today. Has follow-up with Dr. Overton in2 weeks and in February. Also has vascular [...] BP Cuff Size: Regular Adult) Pulse 64 Resp12 Wt 76.2 kg (168 lb) BMI 32.81 [...] agreeable to treatment plan. Jacqueline Corbin APRN.CNP [address] [place] [address] documented in this encounterParkwood Hospital02-21-2024 Miscellaneous Notes* Telephone Encounter - Sofia Rodriguez - 11/18/2023 1:42 PM EST Pt informed, verbalized understanding Sofia Rodriguez * Telephone Encounter - Jacqueline Candelario APRN.CNP - 11/18/2023 1:35 PM EST Please call patient and let her know that lab work results look good! hgA1c remains stable. Continue on current regimen. Thyroid labs are all normal, continue on current regimen. No concerns at all. Thank you, Jacqueline Candelario APRN.CNP documented in this encounterParkwood Hospital02-16-2024 Miscellaneous Notes* Telephone Encounter - Jacqueline Candelario APRN.CNP - 11/13/2023 12:54 PM EST This was addressed during appointment today. Closing encounter. Thank you, Jacqueline Candelario APRN.CNP * Telephone Encounter - Lisa Aparicio RN - 11/12/2023 12:30 PM EST Patient calls and is concerned because her blood pressures continue to be elevated. Patent reports that on 10/30 blood pressure was 132/66. Patient reports that since the blood pressure has been more elevated. 11/05 AM 156/78 02 AM 145/74 02 AM 132/71 11/08 AM 135/73 11/09 AM 150/81 02/13 AM 136/72 02/14 AM 163/77 PM 137/72 11/12 AM 169/89 Patient takes blood pressure 1 hour after taking losartan. Patient is concerned about her blood pressure. Patient has been previously on Coreg and Spirolactone. Patient concerned due to her stroke history and smoking history. Patient scheduled with Jacqueline Tomorrow morning to discuss blood pressure. Lisa Aparicio RN documented in this encounterParkwood Hospital02-16-2024 History of Present illness Narrative* Jacqueline Candelario APRN.CNP - 11/13/2023 9:07 AM EST Leidy Farrar, Reason for blood pressure check: Last [...] next blood pressure measurement appointment., Advise patient totake all medications as prescribed the day of the appointment., Patient provided with EPIC education al material., and Advise patient to continue to monitor BP at home and record readings. COFFEE BAR ATTENDANT/MA/THUA: Written education material provided RN Only Education: Patient educated on the significance of having the BP under good control/diet/exercise. and Patientverbalized understanding of instruction Yes * Jacqueline Candelario APRN.CNP - 11/13/2023 8:53 AM EST Chief Complaint Patient presents with: Blood Pressure HPI Leidy Blanco is a 68 year old female who presents here today for Above Complaints. Leidy is an established patient of Dr. Farrar, [...] time a week. flash glucose scanning reader (trend.lySTYLE TARA 2 READER) 1 Device as directed. [...] agreeable to treatment plan. Jacqueline Corbin APRN.CNP [address] [place] [address] documented in this encounterParkwood Hospital02-01-2024 History of Present illness Narrative* Jacqueline Candelario APRN.CNP - 10/29/2023 9:19 AM EST Chief Complaint Patient presents with: b/p running high last few days HPI Leidy Blanco is a 68 year old female who presents here today for Above Complaints. Leidy is an established patient of Dr. Farrar, and myself. Per TE from yesterday: Pt states she has hx of high blood pressure. Last week she states she started to feel a little offso she found her blood pressure machine and started checking her pressure. States she did not writethem down. Yesterday's readings were 152/80 pulse 71 [...] time of the dizziness or right after. Encouragedto do that if it occurs again tonight. [...] this during hospital admission due to hypotension episodes.Pt has been doing well with diet control [...] Patient agreeable to treatment plan. Jacqueline Corbin APRN.ENGINEERING TEST SPECIALIST [address] [place] [address] documented in this encounterParkwood Hospital11-13-2023 Miscellaneous Notes* Telephone Encounter - Gini Martinez LPN - 08/10/2023 11:32 AM EST Poke with pt gave information provioded. Pt voices understanding. * Telephone Encounter - Preet Farrar DO - 08/10/2023 9:45 AM EST Recommend holding any blood thinners including aspirin and plavix for 5-7 days before procedure. This also needs to be clarified if okay time length by the dentist/oral surgeon as well Preet Farrar DO * Telephone Encounter - Fernanda Ulloa LPN - 08/04/2023 8:49 AM EST Pt is thinking about getting a tooth extracted. Pt is on Plavix and needs to know how long she would need to hold the medication. Please advise pt. Fernanda Ulloa LPN documented in this encounterParkwood Hospital11-03-2023 Miscellaneous Notes* Telephone Encounter - Lisa Aparicio RN - 07/31/2023 12:09 PM EDT Patient notified of results. Patient verbalizes understanding. Lisa Aparicio RN * Telephone Encounter - Preet Farrar DO - 07/31/2023 7:49 AM EDT Please inform patient that her potassium is normal Preet Farrar DO documented in this encounterParkwood Hospital11-01-2023 Miscellaneous Notes* Telephone Encounter - Donna Kimble Ma - 07/29/2023 1:02 PM EDT Spoke to erick and advised PA on file and approved till 02/2024 with medicaid. Pharmacy had to run drug and call tech team due to issue with kicking back to medicare. [facility] returned to line and got rx to go through at copay $0. Called patient and went over information with her and reminded herPA is approved till 02/2024. Patient said she was in jun to see Wendie falcon no PA was done so very upset . Advised PA doesn't need done due to approval till 02/2024 Donna Kimble Ma * Telephone Encounter - Latosha Osei RN - 07/29/2023 12:32 PM EDT Patient calling to say she needs prior authorization for brand name [place] Thyroid. She says she cannot take generic form. PRIOR AUTHORIZATION Medication for Prior Authorization: [place] Thyroid (Patient says she cannot use generic) Other formulary meds available : NO Insurance Company: [facility] Dual Complete [employer] Company phone number: Patient insurance ID number: [id number] Latosha Osei, RN documented in this encounterParkwood Hospital11-01-2023 History of Present illness Narrative* Funmi Roche - 07/29/2023 11:35 AM EDT POPULATION HEALTH NAVIGATION OUTREACH Action/FYI Patient stated she had mammo done outside [facility]. Patient Identified by Name and : YES, via phone Outreach Outcome/Action Spoke to patient / parent / legal guardian: Patient declined Did you use a PCP flex slot to schedule this appointment? N/A Reason for Outreach Care Gap or Scheduling/Wellness visits Payer: Payor: [facility] MEDICARE / Plan: [facility] DUAL COMPLETE HMO POS SNP / Product Type: Medicare / Care Gap Reviewed:: Breast Cancer screening Reminder: Reminder note to check Health Maintenance for items below Health Maintenance items due: Mammogram Screening due on 11/16/2014 RSV Vaccine(1 - 1-dose 60+ series) Never done Colorectal Cancer Screening due on 09/09/2023 Navigation Signature: Fumni BASSETT July 29, 2023 11:35 AM documented in this encounterParkwood Hospital10-31-2023 Miscellaneous Notes* Telephone Encounter - Sahara Mejia LPN - 07/28/2023 2:14 PM EDT Pt. informed. Sahara Mejia LPN * Telephone Encounter - Preet Farrar DO - 07/28/2023 1:47 PM EDT If she wants to try to replace the potassium with potassium rich foods, then needs lab redrawn by Thursday. Order placed Please inform Preet L Farrar, DO * Telephone Encounter - Chelo Prasad RN - 07/28/2023 1:[address] Stapleton from [facility] calling to give message to pt's [...] advise patient. Thank you. documented in this encounterParkwood Hospital10-27-2023 Miscellaneous Notes* Telephone Encounter - Yesi Kitchen RN - 07/24/2023 1:00 PM EDT Pt returned call and given Jacqueline's information and pt aware that staying on 1 mg is fine and that RX has been [facility]. Keep her appt in Aug and get labwork drawn a few days before. Pt verbalizes understanding. * Telephone Encounter - Sofia Rodriguez - 07/24/2023 12:38 PM EDT Attempted to contact patient with no answer. VM full. Will need to try again. Sofia Rodriguez * Telephone Encounter - Jacqueline Candelario APRN.CNP - 07/24/2023 12:34 PM EDT Last HgA1c was at goal in May. OK to stay on 1 mg dosage and repeat A1c in 3 months. Thank you, Jacqueline Candelario APRN.DEREK The following approved medication requests have been transmitted electronically. Requested Prescriptions Signed Prescriptions Disp Refills semaglutide (OZEMPIC) 1 mg/dose (4 mg/3 mL) pen 9 mL 1 Sig: Inject 1 mg subcutaneously one time a week. Authorizing Provider: JACQUELINE CANDELARIO APRN.ENGINEERING TEST SPECIALIST * Telephone Encounter - Kerry Nevarze LPN - 07/22/2023 9:22 AM EDT Patient calling [facility] told her the Ozempic 2 mg is on manufacture back order and not know when it will be available. Patient said they do have the 1 mg still available. Patient is asking if she should stay on the Ozempic 1 mg? And she would need new rx to be sent to [facility] pharmacy. Then when do you want her to do the HGBA1C lab work if she stays on the 1 mg? Pending rx if wanted needs completed. Please advise documented in this encounterParkwood Hospital10-18-2023 History of Present illness Narrative* Kathryn Rivero APRN.DEREK - 07/15/2023 10:34 AM EDT Chief Complaint Patient presents with: Hospital F/U: Virus, pt recently had a fall due to dizziness, reports in scanned docs. HPI Leidy Blanco is a 67 year old female who presents here today for Above Complaints. Today: 07/01 was seen at [facility], passed out-doesn't remember this happening but ended [...] MG/DOSE (8 MG/3 ML) SUBCUTANEOUS PEN INJECTOR Kathryn Rivero APRN.CNP documented in this encounterParkwood Hospital10-06-2023 Miscellaneous Notes* Telephone Encounter - Josie Starks RN - 07/03/2023 1:03 PM EDT Patient seen at [facility] ER on 07/01/2023 and is currently admitted. Josie Starks RN * Telephone Encounter - Adelita Gomez Ma - 07/02/2023 12:29 PM EDT Tried to reach pt, VM full. Adelita Gomez Ma * Telephone Encounter - Sofia Rodriguez - 07/01/2023 5:43 PM EDT Attempted to contact patient with no answer. Mailbox full. Will need to try again later. Sofia Rodriguez * Telephone Encounter - Jacqueline Candelario APRN.DEREK - 07/01/2023 4:50 PM EDT Noted. Agree with below that she needs evaluated. Thank you, Jacqueline Candelario APRN.ENGINEERING TEST SPECIALIST * Telephone Encounter - Kerry Nevarez LPN - 07/01/2023 4:20 PM EDT Patient returned call and went over notes below. Patient kept yelling at her sister, she was tryingto make bullion for her to drink and patient kept talking to whoever was there with her and not wanting to listen to nurse. Patient said she is weak, confused, dizzy and she did take the zofran. She is no longer vomiting. Patient said she could not come in for appt or go to the ER unless her sistergives her a lot of help. Patient is going to drink her bullion and has smart water with electrolytes in it to drink also. * Telephone Encounter - Josie Starks RN - 07/01/2023 3:13 PM EDT Call placed to patient with no answer. Voicemail left for patient to return call and ask to speak to a triage nurse to receive provider message. Josie Starks RN * Telephone Encounter - Josie Starks RN - 07/01/2023 12:15 PM EDT If patient calls back please let her know that we are checking on her symptoms and to offer a follow up if not improving or further triage if necessary. Josie Starks RN Sister ([place]) calls to update that [...] so patient won't call till after then. Josie Starks RN documented in this encounterParkwood Hospital09-29-2023 History of Present illness Narrative* Jacqueline Candelario APRN.DEREK - 06/26/2023 9:00 AM EDT Chief Complaint Patient presents with: b/s high yesterday and today: This morning b?s was 259, she states been nauseated and lft eye cloudy HPI Leidy Blanco is a 67 year old female who presents here today for Above Complaints. Leidy is an established patient of Dr. Farrar, DO and myself. Concerns today... Per TE from [...] Also took Zofran due to being very nauseated. Reports she does not feel well. She [...] diarrhea yesterday. Recent travel last week to [place]. Reports no appetite and feels dehydrated. Concerns [...] BP Cuff Size: Regular Adult) Pulse 100 Resp14 Wt 71.3 kg (157 lb 3.2 oz) [...] today. Stay hydrated, encouraged body armor lite. [place] diet. Discussed and educated patient on reason [...] agreeable to treatment plan. Jacqueline Corbin APRN.DEREK [address] [place] [address] documented in this encounterParkwood Hospital09-22-2023 Instructions* Patient Instructions* Kathryn Rivero APRN.CNP - 06/19/2023 11:13 AM EDT Cut back your [place] Thyroid to 1 tablet daily. Recheck your thyroid levels again in 3 months. Check your A1C in 3 months. Continue with your same diabetic medications and diet, exercise. I'll get back with you pm the Vital Proteins powder. documented in this encounterParkwood Hospital09-22-2023 History of Present illness Narrative* Kathryn Rivero APRN.CNP - 06/19/2023 10:46 AM EDT Chief Complaint Patient presents with: Follow Up: 3 months- DM HPI Leidy Blanco is a 67 year old female who presents here today for Above Complaints. Per visit with Jacqueline Candelario CNP on 04/30/2023: Chief Complaint Patient presents with: go over blood sugars and diet HPI Leidy Blanco is a 67 year old female who presents here today for Above Complaints. Leidy is an established patient of Dr. Farrar, and myself. Concerns today... DM-- Patient reports she is feeling well overall in regards to diabetes A1C 7.8% on 03/10 Patient's last HgA1C was 7.3 --- 4 months ago. Current regimen: amaryl 2 mg BID and ozempic 1 mg weekly These were both recently increased at last appointment on 03/18. Pt reports only taking amaryl on anas needed basis when BG readings are above [...] changes, lightheadedness/dizziness, bowel changes/loose stools, chest pain ordyspnea Past medical history, appointments, medications, allergies reviewed. [...] Patient agreeable to treatment plan. Jacqueline Corbin APRN.ENGINEERING TEST SPECIALIST Today: A1C from has improved from 7.8 [...] 266.2, ICD10: E53.8 - VITAMIN B12 BLOOD Kathryn Rivero, [place].ENGINEERING TEST SPECIALIST documented in this encounterParkwood Hospital08-21-2023 Miscellaneous Notes* Telephone Encounter - Annmarie Canada, RN - 05/18/2023 9:27 AM EDT Pt called in and reports she called her insurance and they told her they do not have a number amount on the strips that can be used. * Telephone Encounter - Suzanna Coffey RN - 05/18/2023 9:03 AM EDT Patient reports she is taking ozempic and testing her BS's 8 times a day. Pharmacy tells her is shewants more strips, would need to have pcp send new Rx. Advised patient to find out from her insurance if they cover this. Patient agreeable but still wants pcp to send new Rx. Pended. Last ov: 04-30-23 Next ov: 06-19-23 documented in this encounterParkwood Hospital08-07-2023 Miscellaneous Notes* Telephone Encounter - Sahara Mejia LPN - 05/04/2023 5:11 PM EDT Pt. informed. * Telephone Encounter - Jacqueline Candelario APRN.CNP - 05/04/2023 4:10 PM EDT Can we see if another pharmacy has ozempic in stock first or have pt call around to see. Thank you, Jacqueline Candelario APRN.ENGINEERING TEST SPECIALIST * Telephone Encounter - Fernanda Ulloa LPN - 05/04/2023 9:11 AM EDT Pt called and she has 1 injection left for her Ozempic. Pharmacy instructed pt to call her pcp. Medication is now on back order. Please advise pt. Okay to leave a message. Fernanda Ulloa LPN documented in this encounterParkwood Hospital08-03-2023 History of Present illness Narrative* Jacqueline Candelario APRN.ENGINEERING TEST SPECIALIST - 04/30/2023 8:40 AM EDT Chief Complaint Patient presents with: go over blood sugars and diet HPI Leidy Blanco is a 67 year old female who presents here today for Above Complaints. Leidy is an established patient of Dr. Farrar, and myself. Concerns today... DM-- Patient reports she is feeling well overall in regards to diabetes A1C 7.8% on 03/10 Patient's last HgA1C was 7.3 --- 4 months ago. Current regimen: amaryl 2 mg BID and ozempic 1 mg weekly These were both recently increased at last appointment on 03/18. Pt reports only taking amaryl on anas needed basis when BG readings are above [...] changes, lightheadedness/dizziness, bowel changes/loose stools, chest pain ordyspnea Past medical history, appointments, medications, allergies reviewed. [...] Patient agreeable to treatment plan. Jacqueline Corbin APRN.ENGINEERING TEST SPECIALIST [address] [place] [address] documented in this encounterParkwood Hospital06-28-2023 Miscellaneous Notes* Telephone Encounter - Liz Richards LPN - 03/25/2023 11:45 AM EDT Rec'd approval form thyroid pork from 03/28/23 to 03/26/2024. Pharmacy notified. My chart message to pt. * Telephone Encounter - Donna Kimble Ma - 03/24/2023 2:10 PM EDT Received denial from medicare part D adivising drug is not covered under medicare. No appeal can bedone since not covered or offered on drug plan. Patient is aware and submitting PA through medicaidto see if they will case picker total cost so she does not have to continue out of pocket. PA to paul submitted through covermeds Shah: [id number] Donna Kimble Ma * Telephone Encounter - Donna Kimble Ma - 03/24/2023 1:22 PM EDT Electronic PA submitted Donna Kimble Ma * Telephone Encounter - Suzanna Coffey RN - 03/24/2023 12:03 PM EDT Prior Authorization Documentation Prior authorization requested for the following medication: Medication: [place] thyroid Provider: Charan Insurance Company Name: [employer] Phone number: [phone] Patient ID number: [id number] [facility] Name: [facility] documented in this encounterParkwood Hospital06-21-2023 History of Present illness Narrative* Preet Farrar, - 03/18/2023 11:00 AM EDT Patient presents with: F/U 3 Month HPI: Leidy Blanco is a 67 year old female [...] day schedule with sugars in the fasting 160- 200s range. Patient's last HgA1C was Hemoglobin A1C [...] pressure. Specifically denies headache, chest pain, dyspnea, andperipheral edema. Patient denies any side effects of her medication(s) and is compliant with their regimen. Last 3 Encounter BP Readings: Date: BP: 03/18/2023 130/80 12/10/2022 138/80 11/05/2022 110/62 She watches her diet for sodium, low fat and low cholesterol some of the time. She does not check BP's generally. Leidy gets minimal exercise. PAST MEDICAL HISTORY Diagnosis [...] 1 mg subcutaneously one time a week.^Disp: 4Each^Rfl: 3 ARMOUR THYROID 120 mg tablet^Take 1 tablet PO daily in AM 6x/week. Take 2 tablets 1x/week.^Disp: 90tablet^Rfl: 1 ergocalciferol 50,000 unit capsule (VITAMIN D2, [...] agreed with the plan. Preet Farrar DO [address] [place] [address] documented in this encounterParkwood Hospital06-06-2023 Miscellaneous Notes* Telephone Encounter - Kesha Evans LPN - 03/03/2023 2:20 PM EDT Last OV: 12/10/22 - Next appt: 03/18/23 [...] patient. Kesha Evans LPN documented in this encounterParkwood Hospital05-08-2023 Miscellaneous Notes* Telephone Encounter - Latosha Osei RN - 02/02/2023 3:07 PM EDT Patient has been identified by name and [...] medication: Not applicable Please advise. Thank you. Latosha Osei RN documented in this encounterParkwood Hospital03-29-2023 Miscellaneous Notes* Telephone Encounter - Annmarie Canada RN - 12/24/2022 3:08 PM EDT Pt called and is notified of providers message. Pt voices understanding. Annmarie Canada RN * Telephone Encounter - Kathryn Rivero APRN.CNP - 12/24/2022 2:02 PM EDT The following approved medication requests have been transmitted electronically. Requested Prescriptions Signed Prescriptions Disp Refills glimepiride (AMARYL) 1 mg tablet 60 tablet 1 Sig: Take 1 tablet by mouth twice daily with meals. Authorizing Provider: PREET FARRAR Ordering User: KATHRYN RIVERO APRN.CNP * Telephone Encounter - Annmarie Canada RN - 12/24/2022 8:36 AM EDT Pt called and is notified of providers message and instructions. Pt voices understanding. Pt statesshe would like to go on a lower dose of the Glimepiride and see if that would help. She would like it called in to [facility] in [place]. Please call and let Pt know when medication has been sent in. Annmarie Canada RN * Telephone Encounter - Preet Farrar DO - 12/23/2022 5:25 PM EDT She can restart the glimepiride medication and take this with her Ozempic. I am not comfortable dose changing the ozempic for 1 month after starting the medication. Preet Farrar DO * Telephone Encounter - Annmarie Canada RN - 12/23/2022 12:18 PM EDT Pt called in and reports she changed from taking the oral medications for Diabetes to the Ozempic. She states she just took her second dose this past Thursday. She reports this morning at 710 am it sva386 and at noon it was 225. Last [...] her for a month, but she doesn't feelcomfortable running in the 200s, and only being in the high 100s a handful of times. Please call and advise. documented in this encounterParkwood Hospital03-20-2023 Miscellaneous Notes* Telephone Encounter - Annmarie Canada RN - 12/15/2022 11:23 AM EDT Pt called in and wanted to update provider that she will be starting Ozempic today. She states she will call back in 30 days to let you know how it is going and if she needs to have the medication increased. documented in this encounterParkwood Hospital03-15-2023 History of Present illness Narrative* Preet Farrar, - 12/10/2022 9:19 AM EDT Patient presents with: F/U 3 Month HPI: Leidy Blanco is a 67 year old female [...] + Plavix and is walking on her treadmillfor 30 minutes each day. She has also [...] time. She does not check BP's generally. Leidy gets minimal exercise. PAST MEDICAL HISTORY Diagnosis [...] in AM 6x/week. Take 2 tablets 1x/week.^Disp: 90tablet^Rfl: 1 Cyanocobalamin 1,000 mcg TbER^Take 3 tablets [...] with the plan. Preet Farrar DO [address] [place] [address] documented in this encounterParkwood Hospital02-23-2023 Discharge summary Author Douglas Abdul [facility] November 20, 2022 10:36am Note Date/Time November 20, 2022 10:36am [facility] Physical Therapy [facility] [address] [place] [address] / REHABILITATION SERVICES DISCHARGE SUMMARY MR#: [id number] Acct: [id number] Name: LEIDY BLANCO Rep #: [id number] : 1955 67 From: Dougals ellis Referring Dr.: Dr. Preet Farrar DO Status: REG RCR [facility] It has been my pleasure to treat LEIDY BLANCO referred by Dr. Preet Farrar DO, with the diagnosis of Ischemic cerebrovascular accident frontal lobe for a total of 2 visit(s). Discharge Date: Please see the following information for a summary of their discharge status. Subjective: Pt. states that she is doing well and her exercises are going well and she is doing them daily. She did see her vascular surgeon yesterday and she doesn't need to have surgery. Pt. is scheduled for a renal ultrasound tomorrow. She reports that she is doing well and would like to be discharged and continue with her exercises at home and will also walk on her treadmill. Goal 1:: Pt. will report no falls. Goal Progress: Goal Met Goal 2:: Pt. will be able to complete at least 12 sit to stands in 30 secs with no arm assist in order to improve mobility. Goal Progress: Goal Met Goal 3:: Pt. will be able to complete tandem stance > 20 secs in order to improve stability and balance. Goal Progress: Goal Met Goal 4:: Pt. will be able to walk at least 20 minutes on her treadmill with no rest breaks or difficulty. Goal Progress: Progressing Plan: Pt. has been discharged from physical therapy at this time and is in agreement with this. If there are questions or concerns regarding this patient's physical therapy, please feel free to call me at [phone]. Thank you for the referral of thispatient. Sincerely, Douglas Abdul Balance/Gait/Functional tests - Balance/Special Test Scores Lower Extremity Functional Score: 77 <Electronically signed by Douglas Abdul > 11/20/22 1036 CC: Dr. Preet Farrar DO; Dr. Carmen Dallas MD ~ NRN Signed [facility] Work Phone: [phone]) 638-262202-08-2023 History of Present illness Narrative* Jacqueline Candelario APRN.ENGINEERING TEST SPECIALIST - 11/05/2022 11:00 AM EST Chief Complaint Patient presents with: hospital f/up HPI Leidy Blanco is a 67 year old female who presents here today for Above Complaints. Leidy is an established patient of Dr. Charan DO. Leidy is a new patient to me today. Concerns today... ER/hospital follow-up --- [facility] ER visit on 11/02/22 d/t RLE weakness [...] ( x 4 days). Denies any cravings sofar. Feels good with stopping this. The stroke/health [...] decrease risk factors of reoccurrence. Slowly get backto treadmill regimen. Discussed importance of keeping HTN, dyslipidemia, and DM under good control to prevent reoccurrence. Discussed emotional component to recent diagnosis -- pt admits to feeling overwhelmed and shocked currently. Declined any counseling or medication at this time -- pt understands and agrees to discussat follow-up appt in 1 month if mood [...] starch, healthy oil intake (olive oil), healthy protein(fish) along the lines of the Mediterranean diet. [...] Patient agreeable to treatment plan. Jacqueline Corbin APRN.ENGINEERING TEST SPECIALIST [address] [place] [address] documented in this encounterParkwood Hospital02-07-[address] Dallas [facility] November 04, 2022 10:19am Note Date/Time November 04, 2022 1 0:19am [facility] Medical Records Department [address] [place] [address] Instructions for Home/Discharge Instructions 11/04/22 1018 MR#: [id number] Acct: [id number] Name: LEIDY BLANCO Rep #:[id number] : 1955 67 From: Carmen Dallas MD PCP: Dr. Preet Farrar, DO Status:AD M CM Discharge Instructions Diet Discharge Diet: Low fat / Low cholesterol Activity Discharge Activity: Return to Normal Activity Weight Bearing Status: Weight bearing as tolerated Dressing / Incision Call your doctor if you observe: Fever of 101 or Higher, Shortness of breath, Swelling in the ankles, Chest pain and Increased palpitations (irregular heartbeat) Follow Up Care Test Results: Test results from this visit will be discussed in further detail at your follow- up appointment, if applicable. Discharge Plan Admission Admit Date/Time: 11/02/22 17:27 Primary Reason for Your Visit: acute cva Attending Provider: Carmen Dallas Primary Care Provider: Preet Farrar Consulting Providers: Hermes Mirza ; Hermes Block Instructions Patient Instructions: Booklet - [facility] Stroke ED - Living After Stroke, Booklet - Understanding Stroke Discharge Orders/Prescriptions Prescriptions: New atorvastatin 80 mg Tablet 80 mg PO QHS Qty: 30 2RF clopidogrel 75 mg Tablet 75 mg PO DAILY Qty: 30 2RF Continued thyroid (pork) 120 MG tablet 120 tablet PO DAILY Rx Instructions: pt takes in am- SHE TAKES ONE EVERY AM AND THEN AND EXTRA ONE ON THU AND THU thyroid (pork) 120 MG tablet 240 mg PO WESA Rx Instructions: pt takes on Wednesdays and Saturdays glimepiride 2 MG tablet 2 mg PO DINNER ergocalciferol (vitamin D2) 50,000 UNIT capsule 50,000 unit PO MOFR carvedilol 6.25 mg tablet 6.25 mg PO BID Label Comments: TAKE 1 TABLET BY MOUTH TWICE DAILY cyanocobalamin (vitamin B-12) 1,000 mcg tablet 1,000 mcg PO DAILY Label Comments: Take 3 tablets by mouth once daily. spironolactone 25 mg tablet 25 mg PO QHS Label Comments: TAKE 1 TABLET BY MOUTH AT BEDTIME Referrals / Follow Up: Hermes Block MD [Med Staff - Active Staff] - Within 2 Weeks Preet Farrar DO [Primary Care Provider] - Kenton Stapleton MD [Non-Staff -Ordering Privileges] - Within 2 Weeks Disposition Disposition (needs filled in before D/C Order can be placed): Home, Self Care 11/04/22 1019<Electronically signed by Carmen Dallas MD>Carmen Dallas MD CC: Dr. Hermes Mirza DO; Dr. Hermes Block MD; Dr. Preet Farrar DO ~ Signed [facility] Work Phone: [phone]) 955-282502-06-2023 Progress note Author [facility] November 03, 2022 3:50pm Note Date/Time November 03, 2022 3 :49pm [facility] Medical Records Department [address] [place] [id number] Progress Note - Hospitalist 11/03/22 1540 MR#: [id number] Acct: [id number] Name: LEIDY BLANCO Rep #:[id number] : 1955 67 From: Carmen Dallas MD PCP: Dr. Preet Farrar DO Status:AD M [facility] Location: [place] [address] Subjective Subjective Patient seen and examined. She had no active complaints. She denied any mouth droop, weakness in arm or leg or tingling or numbness. Review of systems is otherwise negative. Objective Data Objective Data Vital Signs: Vital Signs Temp Pulse Resp BP Pulse Ox O2 Del Method 98.0 F 67 16 157/52 H 99 Room Air 11/03/22 11:37 11/03/22 11:37 11/03/22 11:37 11/03/22 11:37 11/03/22 11:37 11/03/22 14:00 Oxygen Delivery Method Room Air Weight: 177 lb 11.081 oz Body Mass Index (BMI) 34.7 Intake & Output: Intake and Output for Last 24 Hours 11/01/22 11/02/22 11/03/22 23:59 23:59 23:59 Intake Total 100 / 100 Balance 100 / 100 Lab / Micro Data Result Diagrams: 11/02/22 15:28 11/02/22 15:28 Labs: Laboratory Results - last 24 hr 11/02/22 15:28: WBC 13.9 H, RBC 4.97, Hgb 15.3 H, Hct 45.5, MCV 91.5, MCH 30.8, MCHC 33.6, RDW Std Deviation 44.0 H, RDW Coeff of Neida 13.1, Plt Count 381, MPV 10.1, Immature Gran % (Auto) 0.500, Neut % (Auto) 70.6 H, Lymph % (Auto) 20.1, [place] % (Auto) 6.7, Eos % (Auto) 1.7, Baso % (Auto) 0.4, Absolute Neuts (auto) 9.8 H, Absolute Lymphs (auto) 2.79, Nucleated RBC % 0 11/02/22 15:28: PT 12.9, INR 1.0, APTT 29.8 11/02/22 15:28: Sodium 140, Potassium 3.6, Chloride 107, Carbon Dioxide 26.0, Anion Gap 7, BUN 16, Creatinine 0.58, Estim Creat Clear Calc 39.21, Est GFR (MDRD) Af Amer 133, Est GFR (MDRD) Non-Af 110, BUN/Creatinine Ratio 27.4 H, Glucose 163 H, Calcium 10.1, Troponin I High Sens 10 11/02/22 17:49: POC Glucose 137 H 11/02/22 18:14: Troponin I High Sens 12 11/02/22 22:18: POC Glucose 202 H 11/03/22 06:30: Triglycerides 146, Cholesterol 183, LDL Cholesterol 99, VLDL Cholesterol 29, HDL Cholesterol 55 11/03/22 06:30: Hemoglobin A1c 7.0 H 11/03/22 06:42: POC Glucose 181 H 11/03/22 11:48: POC Glucose 202 H Radiography Diagnostic Testing: Radiology Impression Brain CT 11/02/22 15:12 IMPRESSION: There is a left frontal parietal lobe acute ischemic infarction. case discussed with Barone. Davila. : The above Results were Read Back by Neymar Jimenez MD to MD darío, and understanding confirmed on 11/02/2022 15:52:13 (ET). Electronically Signed: Neymar Jimenez MD at 15:53 EST , ADDENDUM: 11/02/22 1600 IMPRESSION: There is a left frontal parietal lobe acute ischemic infarction. case discussed with Barone. Davila. : The above Results were Read Back by Neymar Jimenez MD to MD darío, and understanding confirmed on 11/02/2022 15:52:13 (ET). Electronically Signed: Neymar Jimenez MD at 15:53 EST , Lumbar Spine X-Ray 11/02/22 16:00 IMPRESSION: Degenerative changes of the spine, as detailed above. Electronically Signed: Neymar Jimenez MD at 16:29 EST , Brain MRI 11/02/22 17:52 IMPRESSION: Subacute cortical gyral ischemic infarctions in the left superior frontal gyrus more than the left pre and postcentral gyri and the posterior aspect of the left middle frontal gyrus. This correlates with the hypodense ischemic infarction in the left frontal lobe seen on CT head scan of 11/02/2022. Electronically Signed: Chano Jenkins MD at 9:46 EST , Echocardiogram 11/02/22 17:52 Interpretation Summary Normal LV size. Moderate concentric left ventricular hypertrophy. Left ventricular systolic function is normal. The estimated ejection fraction is 60 %. Stage 1 diastolic dysfunction. Mild aortic stenosis. Mean aortic valve gradient 12 mmHg. Ordering Physician: Hermes Mirza Performed By: Nick Chambers RCS Head/Neck CTA 11/03/22 10:35 IMPRESSION: 1. Complete occlusion of the left cervical internal carotid artery, petrous segments and cavernous segments of the left internal carotid artery. 2. Occluded M3 and M4 branches feeding the left frontal lobe. This distal thromboembolic occlusion accounts for the subacute cortical gyral ischemic infarcts involving the left superior frontal gyrus more than the left posterior middle frontal gyrus and the left central lobe convexity. 3. Adaptive narrowing of the left supraclinoid internal carotid artery, left M1 segment, left M2 segments of the left M1 bifurcation with collateral flow coming from patent left posterior communicating artery. No collateral flow from the right carotid to the left supraclinoid internal carotid artery due to developmentally absent left A1 segment. 4. No other suspicious significant vaso-occlusive disease of the anterior and posterior intracranial circulation. 5. Widely patent right common carotid artery and right cervical internal carotid artery. 6. High-grade stenosis at the subclavian origins of both vertebral arteries due to noncalcified plaques. The remaining segments of both vertebral arteries are widely patent. 7. Normal aortic arch and origins of the great vessels. Electronically Signed: Chano Jenkins MD at 11:50 EST , ADDENDUM: 11/03/22 1861 IMPRESSION: 1. Complete occlusion of the left cervical internal carotid artery, petrous segments and cavernous segments of the left internal carotid artery. 2. Occluded M3 and M4 branches feeding the left frontal lobe. This distal thromboembolic occlusion accounts for the subacute cortical gyral ischemic infarcts involving the left superior frontal gyrus more than the left posterior middle frontal gyrus and the left central lobe convexity. 3. Adaptive narrowing of the left supraclinoid internal carotid artery, left M1 segment, left M2 segments of the left M1 bifurcation with collateral flow coming from patent left posterior communicating artery. No collateral flow from the right carotid to the left supraclinoid internal carotid artery due to developmentally absent left A1 segment. 4. No other suspicious significant vaso-occlusive disease of the anterior and posterior intracranial circulation. 5. Widely patent right common carotid artery and right cervical internal carotid artery. 6. High-grade stenosis at the subclavian origins of both vertebral arteries due to noncalcified plaques. The remaining segments of both vertebral arteries are widely patent. 7. Normal aortic arch and origins of the great vessels. N.B. : The above Results were Read Back by Chano Jenkins MD to Gladys Quezada RN, and understanding confirmed on 11/03/2022 12:07:08 (ET). Electronically Signed: Chano Jenkins MD at 11:50 EST , Rhythm Strip Rhythm Strip: Sinus Rhythm Rate: 75 Ectopy: None Physical Exam Const alert, oriented x3 and no apparent distress HEENT head/scalp atraumatic, moist oral mucous membranes and oropharynx normal Head and Scalp: normocephalic Mouth: oral and palatal mucosa normal Eyes PERRL, EOMs intact bilaterally and conjunctivae normal Neck no lymphadenopathy and supple Resp normal respiratory effort, no retractions, no use of accessory muscles and clearto auscultation bilaterally Cardio regular rate, regular rhythm, S1 normal heart sound, S2 normal heart sound and no murmurs GI normal to inspection, nondistended, normoactive bowel sounds, soft to palpation,non-tender and non-distended Extremity normal to inspection, full ROM and no clubbing, cyanosis or edema Neuro oriented x3, CN's II-XII intact bilaterally, moves all extremities and no focal motor deficits Sensorium / Orientation: awake and alert Motor Exam: strength 5/5 throughout Psych affect normal Assessment & Plan Assessment/Plan (1) 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: PLAN: Plan #Acute CVA * denies RLE weakness. * CT brain showed a left frontal parietal love with acute ischemic infarct * MRi showed subacute cortical gyral ischemic infarctions int eh left superior frontal gyrus more than the left pre and postcentral gyri and posterior aspect of the left middle frontal gyrus * CTA head and neck showed complete occlusion of the left internal carotid a rtery, and high grade stenosis at the subclavian originis of both vertebral arteries due to noncalcified plaques * on plavix and high intensity statin. * patient allergic to aspirin * SOC neurology consulted; appreciate rec's * 2D echo showed normal LV size, with moderate concentric LV hypertrophy and LVSF with EF of 60% and stage 1 diastolic function, with mild aortic stenosis. * #Hypertension * BP markedly elevated. BP meds on hold to allow for permissive hypertension * #Hypothyroidism: on synthroid #Diabetes mellitus * A1C is 7 * on glimepiride. * ISS. Accuchecks ACHS * #Nicotine dependence: counseled to quit. Nicotine patch 21mg daily. DVT prophylaxis: lovenox Charges/Coding Visit Charges Inpatient E&M: 83825 Subs Hosp L2 Reason for Visit Reason for Visit: Diagnoses Cerebral infarction, unspecified (11/02/22) 11/03/22 1550 <Electronically signed by Carmen Dallas MD> Cosigner Signature (if applicable): CC: ~ Signed [facility] Work Phone: 1(285) 419-311902-06-[address] Dallas [facility] November 03, 2022 10:38am Note Date/Time November 03, 2022 1 0:39am [facility] Medical Records Department [address] [place] [id number] Telemedicine Confirmation Receipt 11/03/22 MR#: [id number] Acct: [id number] Name: LEIDY BLANCO Rep #:[id number] : 1955 67 From: Carmen Dallas MD PCP: Dr. Preet Farrar, DO Status:AD M CM [facility] Tele[facility] has confirmed receipt of a request for visit. This document confirms receipt of the order initiating the consult. To find the results of the consultation, please view the patient's reports for the scanned Telemed Consult. [facility] Work Phone: 1(164) 205-550202-06-[address] Darío [facility] November 02, 2022 10:10pm Note Date/Time November 02, 2022 3 :18pm [facility] Medical Records Department [address] [place] [address] Emergency Department Summary 11/02/22 MR#: [id number] Acct: [id number] Name: LEIDY BLANCO Rep #:[id number] : 1955 67 From: Mick Chanel MD PCP: Dr. Preet Farrar DO Status:AD M CM Location: [place] [address] HPI History of Present Illness Chief Complaint: Lower Extremity Injury Informant: patient Onset/Context/Timing Onset: Days (2) Context: Gradual Onset Timing: Continuous Quality and Location: Positive for Right Leg Weakness Current Severity: Moderate Maximum Severity: Moderate Worsened by: nothing Relieved by: nothing Associated Symptoms Associated Symptoms: Positive for - (low back pain); Negative for Headache, Nausea, Vomiting or Chest Pain Narrative Narrative: Patient presents for right foot drop. She states she first noticed it 2 days ago. She states she has been dragging her right leg around when walking. She has had no falls or injuries. She has noticed some mild discomfort in her rightlow back, she denies any other symptoms. She has chronic tingling in the toes of both feet and states that really has not been any different in the last 2 days and she denies tingling/paresthesias anywhere else. No trouble speaking, no trouble understanding others, no slurring of speech, no dropping anything with her hands or having any numbness there. She is on no antiplatelets or anticoagulants and has had no history of stroke. She and the daughter state thelast time she had a foot drop she needed emergency surgery on her low back apparently where she had a fusion and a disc issue. That was done by a back surgeon in [place]. [facility] Medical History Debility Diabetes mellitus Hypertension Hypothyroidism Irritable bowel syndrome Lumbar disc herniation with radiculopathy Lumbar myelopathy Lumbar radiculopathy Lumbar spinal stenosis Neuropathic pain Tobacco abuse Ulcerative colitis Vitamin D deficiency Home Medications ergocalciferol (vitamin D2) 1,250 mcg (50,000 unit) capsule 50,000 unit PO MOFR SUPPLEMENT 12/18/20 [History Last Taken 12/17/20] glimepiride 2 mg tablet 2 mg PO DINNER Blood sugar 12/18/20 [History Last Taken 12/17/20] thyroid (pork) 120 mg tablet 120 tablet PO DAILY THYROID 12/18/20 [History Last Taken 12/17/20] thyroid (pork) 120 mg tablet 240 mg PO WESA THYROID 12/18/20 [History Last Taken 12/14/20] carvedilol 6.25 mg tablet 6.25 mg PO BID Heart rate 11/02/22 [History Last Taken Unknown] cyanocobalamin (vitamin B-12) 1,000 mcg tablet 1,000 mcg PO DAILY 11/02/22 [History Last Taken Unknown] spironolactone 25 mg tablet 25 mg PO QHS 11/02/22 [History Last Taken Unknown] Allergy/AdvReac Type Severity Reaction Status Date / Time aspirin Allergy mouth Verified 11/02/22 14:47 swelling gluten Allergy Abd Verified 11/02/22 14:47 cramps/diarrhea ibuprofen Allergy mouth Verified 11/02/22 14:47 swelling Sulfa (Sulfonamide Allergy pt can't Verified 11/02/22 14:47 Antibiotics) remember Surgical History History of lumbar discectomy History of lumbar fusion Social History (Updated 11/02/22 @ 17:[address] Hermes Mirza DO) Smoking Status: Current every day smoker tobacco type: cigarettes alcohol intake: never substance use type: marijuana ROS ROS ED Constitutional Constitutional ED: Denies chills or fever(s) Eyes Eyes: Denies change in vision or diplopia ENT ENT ED: Denies rhinorrhea or sore throat Cardiovascular Cardiovascular: Denies chest pain or palpitations Respiratory/Chest Respiratory/Chest: Denies cough or dyspnea Gastrointestinal Gastrointestinal: Denies abdominal pain, diarrhea, nausea or vomiting Genitourinary Genitourinary ED: Denies dysuria or hematuria Musculoskeletal Musculoskeletal: Reports back pain; Denies neck pain Integumentary Denies abscess or rash Neurologic Neurologic: Reports as per HPI, paresthesias and weakness; Denies headache(s) Psychiatric Psychiatric: Denies anxiety or suicidal thoughts EXAM Physical Exam Const Vital Signs: 11/02/22 14:47 11/02/22 15:12 11/02/22 16:47 Temperature 98.2 F 98.1 F Temperature Source Temporal Temporal Pulse Rate 84 72 Respiratory Rate 14 16 Blood Pressure 183/70 H 156/131 H Blood Pressure Mean 107 139 Blood Pressure Source Blood Pressure Position Blood Pressure Location Pulse Ox 98 94 Oxygen Delivery Method Room Air Room Air Room Air 11/02/22 17:20 11/02/22 17:20 Temperature 99.2 F H 99.2 F H Temperature Source Oral Oral Pulse Rate 84 84 Respiratory Rate 17 17 Blood Pressure 173/121 H 173/121 H Blood Pressure Mean 138 138 Blood Pressure Source Monitor Monitor Blood Pressure Position Semi-Fowlers Semi-Fowlers Blood Pressure Location Right Arm Right Arm Pulse Ox 96 96 Oxygen Delivery Method Room Air Room Air Positive well nourished, well developed and obese General Appearance ED: well developed and NAD Nutritional Appearance: obese HEENT Reports moist mucous membranes normocephalic and atraumatic Eyes PERRL and EOMs intact bilaterally Neck full ROM and supple Resp normal respiratory effort and clear to auscultation bilaterally Cardio regular rate and regular rhythm Heart Sounds: murmur systolic II/ crescendo-decrescendo GI non-tender and non-distended Auscultation: normoactive bowel sounds Palpation: soft Back/Spine no CVA tenderness Back/Spine Narrative: Mild tenderness at the L5-S1 area in the midline. Well-healed surgical scar without any signs of infection or rash on the back. No other significant back tenderness. No limitation with regards to range of motion. General Back: other FROM Extremity normal to inspection General Extremety ED: Negative for edema, pulses abnormal or tenderness General Extremity: Negative for edema or pulses abnormal Neuro oriented x3 and CN's II-XII intact bilaterally Neuro Narrative: Weak proximally and distally in the right lower extremity with drift. She is able to dorsiflex but weak in doing so. Normal strength everywhere else. Subjective decrease sensation in toes of both feet no other sensory deficits. Normal speech, no dysarthria or aphasia. Sensorium / Orientation: awake and alert Skin no rashes or lesions noted and no wounds NIHSS NIHSS Initial: 1a Level of Consciousness: 0 1b LOC Questions (Score 2 if aphasic/stupor): 0 1c LOC Commands (Only score 1st attempt): 0 2 Best Gaze (If aphasic, use reflexive mvmts.): 0 3 Visual: 0 4 Facial Palsy: 0 5 Motor Arm Right (UN = amputation/fusion): 0 5 Motor Arm Left: 0 6 Motor Leg Right: 1 6 Motor Leg Left: 0 7 Limb ataxia (Only + if out of proportion): 0 8 Sensory (Aphasia/stupor=0 or 1, coma=2): 1 9 Best Language: 0 10 Dysarthria (mute, coma=2, intubated=UN): 0 11 Extinction and Inattention (only scored if +): 0 Total Score: 2 MDM MDM MDM Narrative Medical decision making narrative: With this patient having her entire right lower extremity involved in her weakness, along with symmetric reflexes, along with risk factors for vascular disease especially diabetes, hypertension, smoking heavily, and the fact that her blood pressure is elevated right now at 183/70, stroke is in the differential diagnosis as is lower back/radicular issues. She does not require x-rays of the foot which she suggested upon arrival. A CT of the head was obtained, and in fact shows a left frontal/parietal lobe acute ischemic infarct consistent with right lower extremity weakness. I reviewed these images. My interpretation of the CT agrees with that of the radiologist. I also reviewed three-view x-ray series of the lumbar spine obtained, that show intact hardware nothing acute. Radiology in agreement. She is in sinus rhythm here. Blood work unremarkable. Plan is for admission. Discussed with hospitalist for PCU admission. Lab Data Attestation: I reviewed the patient's lab results. Labs: Laboratory Results - last 24 hr 11/02/22 11/02/22 11/02/22 15:28 15:28 15:28 WBC 13.9 H RBC 4.97 Hgb 15.3 H Hct 45.5 MCV 91.5 MCH 30.8 MCHC 33.6 RDW Std Deviation 44.0 H RDW Coeff of Neida 13.1 Plt Count 381 MPV 10.1 Immature Gran % (Auto) 0.500 Neut % (Auto) 70.6 H Lymph % (Auto) 20.1 [place] % (Auto) 6.7 Eos % (Auto) 1.7 Baso % (Auto) 0.4 Absolute Neuts (auto) 9.8 H Absolute Lymphs (auto) 2.79 Nucleated RBC % 0 PT 12.9 INR 1.0 APTT 29.8 Sodium 140 Potassium 3.6 Chloride 107 Carbon Dioxide 26.0 Anion Gap 7 BUN 16 Creatinine 0.58 Estim Creat Clear Calc 39.21 Est GFR (MDRD) Af Amer 133 Est GFR (MDRD) Non-Af 110 BUN/Creatinine Ratio 27.4 H Glucose 163 H Calcium 10.1 Troponin I High Sens 10 Radiography Diagnostic Testing: Clinical Impression(s) from Imaging Studies Brain CT 11/02/22 15:12 IMPRESSION: There is a left frontal parietal lobe acute ischemic infarction. case discussed with Barone. Davila. : The above Results were Read Back by Neymar Jimenez MD to MD darío, and understanding confirmed on 11/02/2022 15:52:13 (ET). Electronically Signed: Neymar Jimenez MD at 15:53 EST , ADDENDUM: 11/02/22 1600 IMPRESSION: There is a left frontal parietal lobe acute ischemic infarction. case discussed with Barone. Davila. : The above Results were Read Back by Neymar Jimenez MD to MD darío, and understanding confirmed on 11/02/2022 15:52:13 (ET). Electronically Signed: Neymar Jimenez MD at 15:53 EST , Lumbar Spine X-Ray 11/02/22 16:00 IMPRESSION: Degenerative changes of the spine, as detailed above. Electronically Signed: Neymar Jimenez MD at 16:29 EST , Rhythm Strip Rhythm Strip: Sinus Rhythm Rate: 75 Ectopy: None EKG Initial EKG: Attestation: I personally reviewed and interpreted this EKG as follows: Interpretation: Sinus Rhythm, No Acute Injury Pattern and AV Block (1st deg) Prior: No Prior Stroke Documentation Questions Stroke Team Activated: No (timing > 24h) Was Patient considered for Endovascular Intervention?: No-CTA not indicated IV Thrombolytic Administered: No (timing of sx) Discharge Plan Dx/Rx/DC Orders Clinical Impression: 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 Disposition Disposition: Acute Care Hospital [facility] Discharge Date/Time: 11/02/22 17:12 What to do if you have Problems For any increased pain, shortness of breath, bleeding, nausea or vomiting, chestpain, or any unexpected problems, contact your Primary Care Provider. Call [facility] ([phone]) or report to the closest Emergency Room. Call 911 if necessary. 11/02/222209 <Electronically signed by Mick Chanel MD> Cosigner Signature (if applicable): CC: Dr. Preet Farrar DO ~ Signed [facility] Work Phone: 1(817) 351-650302-05-2023 History and physical note Author Dr. Mirza [facility] November 02, 2022 5:39pm Note Date/Time November 02, 2022 5 :39pm [facility] Medical Records Department [address] [place] [address] H&P Exam - Hospitalist 11/02/22 1733 MR#: [id number] Acct: [id number] Name: LEIDY BLANCO Rep #:[id number] : 1955 67 From: Hermes Mirza DO PCP: Dr. Preet Farrar DO Status:AD M [facility] Location: [place] [id number]- [id number] HPI - General General Date of Admission: 11/02/22 Date of Service: 11/02/22 Chief Complaint: Right leg weakness HPI Narrative LEIDY BLANCO, is a 67 F who presents with right leg weakness. Symptoms began today but can wax and wane. Had similar symptoms when she required emergent surgery on her back due to herniated disc. Presented emergency room where she had an x-ray of her back that showed good alignment but CAT scan read showed a left frontal parietal lobe acute ischemic infarct. Patient stated that earlier when she was at the store, she had a headache but that is since resolved. Patient has never had a stroke before [facility] Medical History Debility Diabetes mellitus Hypertension Hypothyroidism Irritable bowel syndrome Lumbar disc herniation with radiculopathy Lumbar myelopathy Lumbar radiculopathy Lumbar spinal stenosis Neuropathic pain Tobacco abuse Ulcerative colitis Vitamin D deficiency Home Medications ergocalciferol (vitamin D2) 1,250 mcg (50,000 unit) capsule 50,000 unit PO MOFR SUPPLEMENT 12/18/20 [History Last Taken 12/17/20] glimepiride 2 mg tablet 2 mg PO DINNER Blood sugar 12/18/20 [History Last Taken 12/17/20] thyroid (pork) 120 mg tablet 120 tablet PO DAILY THYROID 12/18/20 [History Last Taken 12/17/20] thyroid (pork) 120 mg tablet 240 mg PO WESA THYROID 12/18/20 [History Last Taken 12/14/20] carvedilol 6.25 mg tablet 6.25 mg PO BID 11/02/22 [History Last Taken Unknown] cyanocobalamin (vitamin B-12) 1,000 mcg tablet 1,000 mcg PO DAILY 11/02/22 [History Last Taken Unknown] spironolactone 25 mg tablet 25 mg PO QHS 11/02/22 [History Last Taken Unknown] Allergy/AdvReac Type Severity Reaction Status Date / Time aspirin Allergy mouth Verified 11/02/22 14:47 swelling gluten Allergy Abd Verified 11/02/22 14:47 cramps/diarrhea ibuprofen Allergy mouth Verified 11/02/22 14:47 swelling Sulfa (Sulfonamide Allergy pt can't Verified 11/02/22 14:47 Antibiotics) remember Surgical History History of lumbar discectomy History of lumbar fusion Social History (Updated 11/02/22 @ 17:[address] Hermes Mirza DO) Smoking Status: Current every day smoker tobacco type: cigarettes alcohol intake: never substance use type: marijuana ROS ROS Narrative No changes in speech. Does get left thigh blurry vision when she wakes up in the mornings but that gets better over the day. No right upper extremity concerns. No bowel or bladder incontinence. All review of systems were negative except as mentioned above in the history of present illness and the other review of systems. Vital Signs Vital Signs Vital Signs: 11/02/22 14:47 11/02/22 15:12 11/02/22 16:47 Temperature 36.8 C 36.7 C Temperature Source Temporal Temporal Pulse Rate 84 72 Respiratory Rate 14 16 Blood Pressure 183/70 H 156/131 H Blood Pressure Mean 107 139 Pulse Ox 98 94 Oxygen Delivery Method Room Air Room Air Room Air Weight Weight: 80.6 kg Body Mass Index (BMI) 34.7 Physical Exam Narrative - Physical Exam General: Alert, Oriented x3, Cooperative HEENT: Atraumatic, PERRLA, EOMI, Normocephalic Oral: Moist Mucosa, No Gingival or Mucosal Lesions/ Ulcerations Neck: Supple, No JVD, Negative Carotid Bruits Lungs: Clear to auscultation, Normal air movement Cardiovascular: Regular rate, Normal S1, Normal S2, No murmurs Abdomen: Bowel Sounds Present, Soft, Non Tender, Non-Distended, No Hepato-splenomegaly Extremities: No clubbing, No cyanosis, No edema, Capillary Refill Less than 3 Seconds Skin: No rashes, No breakdown Musculoskeletal: No Tenderness to Palpation of Joints or Extremities Neurological: Neuro grossly intact. Current nerves II through XII grossly intact. Muscle strength 5-5 in upper and lower extremities bilaterally though slightly less in the right upper extremity. Finger-nose and [id number] grossly intact. Sensation grossly intact. Psych/Mental Status: Normal Affect, Appropriate Results Lab / Micro Data Attestation: I reviewed the patient's lab results. Result Diagrams: 11/02/22 15:28 11/02/22 15:28 Labs: Laboratory Results - last 24 hr 11/02/22 15:28: WBC 13.9 H, RBC 4.97, Hgb 15.3 H, Hct 45.5, MCV 91.5, MCH 30.8, MCHC 33.6, RDW Std Deviation 44.0 H, RDW Coeff of Neida 13.1, Plt Count 381, MPV 10.1, Immature Gran % (Auto) 0.500, Neut % (Auto) 70.6 H, Lymph % (Auto) 20.1, [place] % (Auto) 6.7, Eos % (Auto) 1.7, Baso % (Auto) 0.4, Absolute Neuts (auto) 9.8 H, Absolute Lymphs (auto) 2.79, Nucleated RBC % 0 11/02/22 15:28: PT 12.9, INR 1.0, APTT 29.8 11/02/22 15:28: Sodium 140, Potassium 3.6, Chloride 107, Carbon Dioxide 26.0, Anion Gap 7, BUN 16, Creatinine 0.58, Estim Creat Clear Calc 39.21, Est GFR (MDRD) Af Amer 133, Est GFR (MDRD) Non-Af 110, BUN/Creatinine Ratio 27.4 H, Glucose 163 H, Calcium 10.1, Troponin I High Sens 10 Rhythm Strip Rhythm Strip: Sinus Rhythm Rate: 75 Ectopy: None EKG Initial EKG: Attestation: I personally reviewed and interpreted this EKG as follows: Prior EKG tracings: available for review EKG Rhythm Intrepretation: Sinus Rhythm and 1st Degree AVB Radiology Impression Brain CT 11/02/22 15:12 IMPRESSION: There is a left frontal parietal lobe acute ischemic infarction. case discussed with Darío. N.B. : The above Results were Read Back by Neymar Jimenez MD to MD darío, and understanding confirmed on 11/02/2022 15:52:13 (ET). Electronically Signed: Neymar Jimenez MD at 15:53 EST , ADDENDUM: 11/02/22 1600 IMPRESSION: There is a left frontal parietal lobe acute ischemic infarction. case discussed with N.B. : The above Results were Read Back by Neymar Jimenez MD to MD darío, and understanding confirmed on 11/02/2022 15:52:13 (ET). Electronically Signed: Neymar Jimenez MD at 15:53 EST , Lumbar Spine X-Ray 11/02/22 16:00 IMPRESSION: Degenerative changes of the spine, as detailed above. Electronically Signed: Neymar Jimenez MD at 16:29 EST , Assessment & Plan Assessment/Plan (1) 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: PLAN: Acute Patient with multiple risk factors including smoking tobacco and marijuana. Patient states that she has a marijuana card. I told her that she may want to consider edibles but she states that people the prescriber told her that there concern about her liver and kidney with the edibles as compared to smoking it. Told him unaware of that side effect with THC but recommended she stop smoking everything altogether but she can work with her primary care team in regards to tobacco cessation and marijuana specialist in regards to change her over to edibles or trying something else in instead of smoking marijuana. Testing: MRI of the brain in 2d echocardiogram. Lipid panel morning Patient has an aspirin allergy so we will initiate clopidogrel PLAN: Plan Chronic conditions: * Smoking: Tobacco and marijuana. Recommend cessation. Patient has cut back from 1/2 packs of cement cigarettes today to half pack now. Told her it is to help set goals when she is discharged to try to quit tobacco. Patient does get a medical marijuana card and gets her marijuana from a physician apparently. She can work with here she about either utilizing something else or using a different formulation of marijuana * Celiac disease: Stable * Hypertension: Monitor * Diabetes mellitus type 2 sliding-scale and glyburide * hypothyroidism: Patient can continue with her pork thyroid. She can bring that in. VTE prophylaxis: Not indicated given current observation status. Charges/Coding Visit Charges Inpatient E&M: 82653 Init Hosp L3 11/02/22 1469 <Electronically signed by Hermes Mirza DO> Cosigner Signature (if applicable): CC: Dr. Hermes Mirza DO; Dr. Aubrey Lundberg MD; Dr. Preet Farrar DO~ Signed [facility] Work Phone: 1(951) 733-846702-05-2023 Miscellaneous Notes* Telephone Encounter - Janis Subramanian RN - 11/02/2022 1:46 PM EST Reason for Call: Left foot drop, cool Outcome: Go to ED now. Patient acknowledged understanding and stated she would have daughter take her to ED. Reason for Disposition Diabetes mellitus Foot is cool or blue in comparison to other side Protocols used: Foot [id number], Diabetes - Foot Problems and [id number]-MPYEP-CA Patient states she is Type II diabetic and had back surgery in 2020. [facility] Miscellaneous Notes* Telephone Encounter - Gini Martinez LPN - 10/08/2022 4:52 PM EST Keira--09/10/22 Nov--12/10/22 Last refill--b-12 05/07/22 90 with 3 refills [place] thyroid 05/28/22 90 with 1 refills Last labs--09/08/22 * Telephone Encounter - Susan Bassett - 10/08/2022 3:42 PM EST Patient has been identified by name and [...] advise. Susan Goddard Pss [facility] Miscellaneous Notes* Telephone Encounter - Sofia Valente Ma - 09/04/2022 12:26 PM EST Pt informed, verbalized understanding Sofia Valente Ma * Telephone Encounter - Preet Farrar DO - 09/03/2022 10:37 PM EST Labs ordered, please inform patient Preet Farrar DO * Telephone Encounter - Funmi Burleson Pss - 09/03/2022 4:09 PM EST Patient scheduled with Dr. Farrar on 09/10. Patient asking for lab orders to be placed. Please advise and call patient. documented in this encounterPark[facility]11-30-2022 Miscellaneous Notes* Telephone Encounter - Chelo Lakhani Pss - 08/27/2022 9:04 AM EST Patient has been identified by name and [...] once daily. Please review and advise. Chelo Lakhani Pss documented in this encounterPark[facility]08-31-2022 Miscellaneous Notes* Telephone Encounter - Fernanda Bianchi Artemio HALE - 05/28/2022 2:11 PM EDT Pt calling and states she needs a [...] (uU/mL) Date Value 11/13/2021 2.660 Thank you. Fernanda Ulloa LPN documented in this encounterParkwood Hospital08-09-2022 Miscellaneous Notes* Telephone Encounter - Donna Kimble Ma - 05/06/2022 11:59 AM EDT Patient last visit with PCP 02/19/22 Follow up appointment scheduled none Donna Kimble Ma documented in this encounterParkwood Hospital07-11-2022 Miscellaneous Notes* Telephone Encounter - Annmarie Canada RN - 04/07/2022 3:13 PM EDT Zoey from [facility], and Pts POA called and asked to have lab results from 04/04/22 faced over. Faxed to # [phone]. documented in this encounterParkwood Hospital07-06-2022 Miscellaneous Notes* Telephone Encounter - Sahara Bassett - 04/02/2022 2:23 PM EDT Patient is asking that this rx be sent before 04/09/22 so it will sync with her other refills. * Telephone Encounter - Sahara Bassett - 04/02/2022 2:23 PM EDT Patient has been identified by name and date of : Yes Patient is asking that this rx be sent before 04/09/22 so it will sync with her other refills. Pending Prescriptions Disp Refills ERGOCALCIFEROL (VITAMIN D2) 1,250 MCG (50,000 UNIT) CAPSULE 24 capsule 3 Sig: Take 1 capsule by mouth two times a week. DAVE: No KEIRA-02/19/22 Labs-02/19/22 NOV-none med filled 05/01/21 RX INSTRUCTIONS: Patient aware RX will be sent to pharmacy. No need to notify patient. Sahara Thayer Pss documented in this encounterParkwood Hospital06-03-2022 History of Present illness Narrative* RT Whitley(R) - 02/28/2022 10:10 AM EDT Radiology Service Progress Note PATIENT NAME: Leidy Blanco DATE OF SERVICE: February 28, 2022 TIME: 10:22 AM PATIENT IDENTITY VERIFICATION COMPLETED USING TWO (2) IDENTIFIERS: Name and Date of confirmedby patient verbally. FALL SCREENING: Has the patient had 2 falls in the last year or 1 fall with injury or currently using an Ambulatory Assistive Device (Walker, Cane, Wheelchair, Crutches, etc.)? No PATIENT GENDER DATA: Female. status: : No status: NO. PATIENT RELEVANT IMPLANT DATA REVIEWED: Not Applicable RADIOLOGY DEPARTMENT: General X-ray: Exam(s) Completed: Lower Extremity X- Ray(s): Ankle, Left and Wt. Bearing PERIPHERAL IV DATA: Not applicable SIGNED BY: RT Whitley(R) February 28, 2022 10:22 AM documented in this encounterParkwood Hospital06-02-2022 Miscellaneous Notes* Telephone Encounter - Funmi Burleson Pss - 02/27/2022 3:19 PM EDT This PSS spoke to [employer] tech Mamta Jha who will call patient to address her questions. * Telephone Encounter - Suzanna Coffey RN - 02/27/2022 2:58 PM EDT Patient phoned very stressed out. Reports she is having a renal US tomorrow morning and was told today there are instructions she needs to follow. Reviewed the instructions and patient states she is just going to go NPO after 10 pm and take 1 dose of beano in the morning prior to test, and take hermeds afterwards. Asking Check Scaler to please advise patient if this would be ok and phone her with reply. Reports she takes her diabetic medication at night. Patient is very angry that noone told her the instructions until today. * Telephone Encounter - Chelo Prasad RN - 02/27/2022 11:31 AM EDT Patient calling with medication and prep questions [...] office to answer her specific questions. PH: [phone]. Thank you. documented in this encounterParkwood Hospital05-27-2022 Miscellaneous Notes* Telephone Encounter - Gini Martinez LPN - 02/21/2022 9:43 AM EDT Spoke with pt gave information provided . Pt voices understanding. * Telephone Encounter - Preet Farrar DO - 02/21/2022 7:39 AM EDT Please inform patient as below- this lab has to be reordered for her to have drawn again for renin/aldosterone Preet Farrar DO * Telephone Encounter - Preet Farrar DO - 02/21/2022 7:38 AM EDT ----- Message from Michelle Hannah sent at [...] Services. DO NOT REPLY TO THIS MESSAGE. * Telephone Encounter - Preet Farrar DO - 02/21/2022 7:25 AM EDT Please inform patient that her labs show that her a1c is stable at 6.5%. Her urinalysis shows that blood is in the urine, this has been present the last few times she has given samples. Preet Farrar DO documented in this encounterParkwood Hospital05-26-2022 Miscellaneous Notes* Telephone Encounter - Chelo Prasad RN - 02/20/2022 9:05 AM EDT Patient calling and states due to her [...] if agreeable. Thank you. documented in this encounterParkwood Hospital05-25-2022 History of Present illness Narrative* Preet Farrar DO - 02/19/2022 12:11 PM EDT Patient presents with: Follow Up HPI: Leidy Blanco is a 66 year old female who presents to the office today for review of health conditions. Concerns today: She has recently over the last few weeks had elevated BLOOD PRESSURE in the 160- 180s/80s at home. Has a new BLOOD PRESSURE [...] the time. She does check BP's generally. Leidy gets sporadic irregular exercise. PAST MEDICAL HISTORY [...] starch, healthy oil intake (olive oil), healthy protein(fish) along the lines of the Mediterranean diet. [...] starch, healthy oil intake (olive oil), healthy protein(fish) along the lines of the Mediterranean diet. [...] agreed with the plan. Preet Farrar DO [address] [place] [address] documented in this encounterParkwood Hospital05-18-2022 Miscellaneous Notes* Telephone Encounter - Yesi Henry LPN - 02/12/2022 10:20 AM EDT Patient notified of updates, verbalizes understanding of instructions.Pt has a follow up appt with PCP. Waiting for authorization for BP cuff. Yesi Henry LPN * Telephone Encounter - Preet Farrar DO - 02/12/2022 10:00 AM EDT Would recommend purchasing a new BLOOD PRESSURE cuff and continuing to monitor readings at home. Also can make a nurse visit to check BLOOD PRESSURE here as well. Preet Farrar DO * Telephone Encounter - Chelo Prasad RN - 02/12/2022 9:23 AM EDT Patient calling to update Dr. Farrar. She reports she saw Kathryn Rivero on 01/31/22 for hypertension and during [...] Discussed recent order sent last month to [employer] for new BP cuff and patient states she did not know an order was sent for this and she will contact [employer] today and try to case picker new BP monitor. She wanted to update Dr. Farrar of her BP results now instead of waiting until 02/19 appt due to being concerned. She denies any chest pain, shortness of breath or other symptoms. Please advise. Thank you. documented in this encounterParkwood Hospital05-16-2022 History of Present illness Narrative* RT Maria Teresa(R) - 02/10/2022 10:00 AM EDT Radiology Service Progress Note PATIENT NAME: Leidy Blanco DATE OF SERVICE: February 10, 2022 TIME: 10:01 AM PATIENT IDENTITY VERIFICATION COMPLETED USING TWO (2) IDENTIFIERS: Name and Date of confirmedby patient verbally. FALL SCREENING: Has the patient had 2 falls in the last year or 1 fall with injury or currently using an Ambulatory Assistive Device (Walker, Cane, Wheelchair, Crutches, etc.)? No PATIENT GENDER DATA: Female. status: : No status: NO. PATIENT RELEVANT IMPLANT DATA REVIEWED: Not Applicable RADIOLOGY DEPARTMENT: General X-ray: Exam(s) Completed: Lower Extremity X- Ray(s): Ankle, Left and Wt. Bearing PERIPHERAL IV DATA: Not applicable SIGNED BY: RT Maria Teresa(R) February 10, 2022 10:01 AM documented in this encounterParkwood Hospital05-06-2022 Instructions* Patient Instructions* Kathryn Rivero APRN.CNP - 01/31/2022 11:45 AM EDT Record your BP and heart rate once daily until your appointment with Dr. Farrar. If your BP is consistently over 160/100, please let us know before then. You can discuss your thyroid medication with her at that time as well. documented in this encounterParkwood Hospital05-06-2022 History of Present illness Narrative* Kathryn Rivero APRN.CNP - 01/31/2022 11:22 AM EDT Chief Complaint Patient presents with: Blood Pressure HPI Leidy Blanco is a 66 year old female [...] medication. She feels that it is only elevatedr/t her recent back surgery and foot fracture stress. Feels that it is otherwise not elevated. Doesnot want to increase her medication at this time. Will monitor her BP and HR daily, over the next couple weeks. Will bring results to upcoming appointment with Dr. Farrar (PCP). Discussed red flag warning signs as well as BP parameters with patient. Discussed limiting salt. 2. Acquired hypothyroidism - ICD9: 244.9, ICD10: E03.9 Insurance is no longer covering her [facility], as she is over 65 years old. They would like her to take 911 EMERGENCY SERVICES DISPATCHER Thyroid, but patient is unsure that she should do this. Would like to discuss with Dr. Farrar again at her upcoming appointment. 3. Controlled type 2 diabetes mellitus without complication, without long-term current use of insulin (HCC) - ICD9: 250.00, ICD10: E11.9 Kathryn Rivero APRN.CNP Greater than 50% of 35-minute visit spent face to face with patient in counseling and education. documented in this encounterParkwood Hospital05-05-2022 Instructions* Patient Instructions* Steve Rodriguez - 01/30/2022 1:55 PM EDT Continue with boot. Repeat xrays in 2 weeks and then again in one month F/u in 1 month If you experience any issues, contact the office immediately documented in this encounterParkwood Hospital05-05-2022 History of Present illness Narrative* Steve Rodriguez - 01/30/2022 1:45 PM EDT Consultation requested by Dr. Ryan for an [...] myself: Nondisplaced fracture of left fibula ASSESSMENT: (Z20.001R) Closed fracture of distal end of left fibula, unspecified fracture morphology, initial encounter (primary encounter diagnosis) PLAN: 1. History and physical examination performed. 2. XR reviewed with patient and interpreted today 3. Discussed fracture of left fibula. This is nondisplaced. Continue with boot. 4. Will repeat xrays in 2 weeks and then again in 4 weeks Steve Rodriguez DPM Podiatry [address] [facility] [address] Dept: [phone] Dept * Melissa Valdivia RN - 01/30/2022 1:40 PM EDT AMB ROOMING INTAKE FLOWSHEET DATA Risk Screening Do you have concerns about personal safety or safety in the home?: No Patient presents with: Left Foot - New Patient, Fracture Patient is here for L foot fracture. Occurred a week ago. Has been NWB in boot. documented in this encounterParkwood Hospital04-28-2022 History of Present illness Narrative* Nataly Ryan APRN.ENGINEERING TEST SPECIALIST - 01/23/2022 4:59 PM EDT Images from the original note were not included. Subjective Patient came in with complaints of left ankle pain. Patient said she twisted her ankle in [place]. Said it does hurt to walk on it. Did notice some swelling. No loss of feeling or sensation. The history is provided by the patient. No speech and language clinician was used. Review of Systems Constitutional: Negative. [...] aspect of the lateral malleolus. Calcaneal spurring. Water Taxi Driver: AUGUSTIN Transcribe Date/Time: Jan 23 2022 5:55P Dictated by : RODRIGO GONSALVES MD Patient placed in a walking boot and crutches were given. Try not to put weight on ankle as much aspossible. Orthopedic appointment patient instructed to take tylenol and ice and elevate until follow up with orthopedic. Nataly Ryan APRN.DEREK documented in this encounterParkwood Hospital04-20-2022 Miscellaneous Notes* Telephone Encounter - Jacqueline Corbin APRN.CNP - 01/15/2022 2:03 PM EDT Noted. Thank you. Jacqueline Corbin APRN.CNP * Telephone Encounter - Liz Richards LPN - 01/15/2022 1:47 PM EDT called pt and all reviewed. She is aware that his is not covered at this time. Although was not at the time she picked/got her insurance. She is paying out of pocket with a good rx card. She may contact her insurance company or the resident services manager of [facility] to see if they have anyother option. Nothing else is needed from the provider. fyi to provider. * Telephone Encounter - Jacqueline Corbin APRN.CNP - 01/15/2022 12:19 PM EDT Patient has been taking this medication for years. Please clarify what alternatives are covered by her insurance and/or re-submit new PA. Jacqueline Corbin APRN.CNP * Telephone Encounter - Liz Richards LPN - 01/14/2022 2:07 PM EDT PA completed and this is excluded per response. To: Jacqueline Corbin From: [employer] Phone: Fax: [phone] Reference #: [id number] RE: Prior Authorization Request Patient Name: Leidy Blanco Patient : 1955 Status of Request: Deny Medication Name: [facility]iel[facility] Thyro Tab 120mg GPI/NDC: [id number] Decision Notes: This medication is a plan exclusion and is not a covered benefit on this patient's plan. * Telephone Encounter - Liz Richards LPN - 01/14/2022 12:01 PM EDT Electronic PA requested. * Telephone Encounter - Annmarie Canada RN - 01/14/2022 11:41 AM EDT Prior Authorization Documentation Prior authorization requested for the following medication: Medication: [facility] Provider: Dr Preet Farrar Insurance Company Name: [facility] [employer] Insurance Company Phone number: Patient ID number: [id number] Pharmacy Name: [facility] Telephone number: [phone] documented in this encounterParkwood Hospital04-02-2021 NoteHospital Medicine Discharge Summary Leidy Blanco : 1955 Admit date: 12/21/2020 Discharge [...] Finally were able to transition her to senior living facility on 12/28/2020. Exam on discharge: BP [...] by the following consultants while admitted to [facility]: Consults: IP CONSULT TO ORTHOPEDIC SURGERY IP CONSULT TO AIRPORT OPERATIONS MANAGER IP CONSULT TO AIRPORT OPERATIONS MANAGER Significant Diagnostic Studies: Refer to chart Please refer to chart if no studies are shown here Xr Lumbar Spine (2-3 Views) Result Date: 12/21/2020 Patient Name: LEIDY BLANCO Diagnostic Radiology ACCESSION EXAM DATE/TIME PROCEDURE ORDERING PROVIDER [id number] 12/21/2020 06:06 EDT CR Spine Lumbosacral 2 MD ROCK ZACHARY or 3 Views CPT code 23970 Reason For Exam (CR Spine Lumbosacral 2 or 3 Views) pre-surgery films Report Examination: Lumbar spine 3 views Indication: pre-surgery films Findings: The vertebral bodies are in gross anatomic alignment. No acute fracture is demonstrated. Sfcj-pf-pfccjnib levocurvature is noted. There are at least moderate degenerative facet changes of the lower lumbar spine. There is at least moderate degenerative disc disease at T12/L1 and L1/L2. Zydt-mt-dnnhutum calcification of the abdominal aorta is noted. [...] 1 Vw Result Date: 12/21/2020 Patient Name: LEIDY BLANCO Diagnostic Radiology ACCESSION EXAM DATE/TIME PROCEDURE ORDERING PROVIDER [id number] 12/21/2020 06:06 EDT CR Chest 1 View Frontal MD ROCK ZACHARY CPT code 33238 Reason For Exam (CR Chest 1 View [...] Date and Time: 12/21/2020 8:00 Discharge Medications: Francis Leidy Joaquim Home Medication Instructions [place]:[id number] Printed on:12/28/20 1204 Medication Information Cholecalciferol (VITAMIN D3) 1.25 MG (15758 UT) CAPS Take 50,000 capsules by mouth Twice a Week Thursday and Thursday cyclobenzaprine (FLEXERIL) 10 MG tablet Take 1 tablet by mouth 3 times daily as needed for Muscle spasms gabapentin (NEURONTIN) 300 MG capsule Take 1 capsule by mouth 3 times da (more content not included)...[facility]03-27-2021 NoteProcedure Note Name: Leidy Blanco Date of : 1955 Age: 65 y.o. Primary Care Physician: No primary care provider on file. Admission Date/Time: 12/21/2020 2:28 AM Date of Procedure: 12/21/2020 Attending Surgeon: Steve Martinez M.D. Coding File Clerk: Abisai Wolff PA-C, Treva Henderson MD PGY-2 The first-hr administrative assistant was critical to all steps of [...] F who presented as a transfer from [facility] with low back pain and bilateral [...] was obtained. Consent: I have discussed with Leidy Blanco the benefits, risks, and alternatives of [...] was prepped and drape (more content not included)...[facility]01-[facility]2019 History of Past illness Narrative* Problem Noted Date Resolved Date Controlled type 2 diabetes m ellitus without complication, without long-term current use of insulin 10/12/2018 12/08/2022 Abdominal pain, right upper quadrant 02/16/2007 12/08/2022 Diabetes mellitus type 2, controlled, without co mplications 07/13/2006 12/08/2022 Overview: 2005 documented as of this encounter (statuses as of 12/10/2022) [facility] Narrative* Problem Noted Date Resolved Date Controlled type 2 diabetes m ellitus without complication, without long-term current use of insulin 10/12/2018 12/08/2022 Abdominal pain, right upper quadrant 02/16/2007 12/08/2022 Diabetes mellitus type 2, controlled, without co mplications 07/13/2006 12/08/2022 Overview: 2005 documented as of this encounter (statuses as of 12/15/2022) [facility] of [facility] illness Narrative* Problem Noted Date Resolved Date Controlled type 2 diabetes m ellitus without complication, without long-term current use of insulin 10/12/2018 12/08/2022 Abdominal pain, right upper quadrant 02/16/2007 12/08/2022 Diabetes mellitus type 2, controlled, without co mplications 07/13/2006 12/08/2022 Overview: 2005 documented as of this encounter (statuses as of 12/24/2022) [facility] Narrative* Problem Noted Date Resolved Date Controlled type 2 diabetes m ellitus without complication, without long-term current use of insulin 10/12/2018 12/08/2022 Abdominal pain, right upper quadrant 02/16/2007 12/08/2022 Diabetes mellitus type 2, controlled, without co mplications 07/13/2006 12/08/2022 Overview: 2005 documented as of this encounter (statuses as of 02/03/2023) [facility] Narrative* Problem Noted Date Resolved Date Controlled type 2 diabetes m ellitus without complication, without long-term current use of insulin 10/12/2018 12/08/2022 Abdominal pain, right upper quadrant 02/16/2007 12/08/2022 Diabetes mellitus type 2, controlled, without co mplications 07/13/2006 12/08/2022 Overview: 2005 documented as of this encounter (statuses as of 03/04/2023) [facility] Narrative* Problem Noted Date Resolved Date Controlled type 2 diabetes m ellitus without complication, without long-term current use of insulin 10/12/2018 12/08/2022 Abdominal pain, right upper quadrant 02/16/2007 12/08/2022 Diabetes mellitus type 2, controlled, without co mplications 07/13/2006 12/08/2022 Overview: 2005 documented as of this encounter (statuses as of 03/18/2023) [facility] Narrative* Problem Noted Date Resolved Date Controlled type 2 diabetes m ellitus without complication, without long-term current use of insulin 10/12/2018 12/08/2022 Abdominal pain, right upper quadrant 02/16/2007 12/08/2022 Diabetes mellitus type 2, controlled, without co mplications 07/13/2006 12/08/2022 Overview: 2005 documented as of this encounter (statuses as of 03/25/2023) [facility] Narrative* Problem Noted Date Diagnosed Date Resolved Date Controlled type 2 diabetes m ellitus without complication, without long-term current use of insulin 10/12/2018 12/08/2022 Abdominal pain, right upper quadrant 02/16/2007 12/08/2022 Diabetes mellitus type 2, co ntrolled, without complications 07/13/2006 12/08/2022 Overview: 2005 documented as of this encounter (statuses as of 04/30/2023) [facility] Narrative* Problem Noted Date Diagnosed Date Resolved Date Controlled type 2 diabetes m ellitus without complication, without long-term current use of insulin 10/12/2018 12/08/2022 Abdominal pain, right upper quadrant 02/16/2007 12/08/2022 Diabetes mellitus type 2, co ntrolled, without complications 07/13/2006 12/08/2022 Overview: 2005 documented as of this encounter (statuses as of 05/05/2023) [facility] Narrative* Problem Noted Date Diagnosed Date Resolved Date Controlled type 2 diabetes m ellitus without complication, without long-term current use of insulin 10/12/2018 12/08/2022 Abdominal pain, right upper quadrant 02/16/2007 12/08/2022 Diabetes mellitus type 2, co ntrolled, without complications 07/13/2006 12/08/2022 Overview: 2005 documented as of this encounter (statuses as of 05/18/2023) [facility] Narrative* Problem Noted Date Diagnosed Date Resolved Date Controlled type 2 diabetes m ellitus without complication, without long-term current use of insulin 10/12/2018 12/08/2022 Abdominal pain, right upper quadrant 02/16/2007 12/08/2022 Diabetes mellitus type 2, co ntrolled, without complications 07/13/2006 12/08/2022 Overview: 2005 documented as of this encounter (statuses as of 06/20/2023) [facility] Narrative* Problem Noted Date Diagnosed Date Resolved Date Controlled type 2 diabetes m ellitus without complication, without long-term current use of insulin 10/12/2018 12/08/2022 Abdominal pain, right upper quadrant 02/16/2007 12/08/2022 Diabetes mellitus type 2, co ntrolled, without complications 07/13/2006 12/08/2022 Overview: 2005 documented as of this encounter (statuses as of 06/26/2023) [facility] Narrative* Problem Noted Date Diagnosed Date Resolved Date Controlled type 2 diabetes m ellitus without complication, without long-term current use of insulin 10/12/2018 12/08/2022 Abdominal pain, right upper quadrant 02/16/2007 12/08/2022 Diabetes mellitus type 2, co ntrolled, without complications 07/13/2006 12/08/2022 Overview: 2005 documented as of this encounter (statuses as of 07/04/2023) [facility] Narrative* Problem Noted Date Diagnosed Date Resolved Date Controlled type 2 diabetes m ellitus without complication, without long-term current use of insulin 10/12/2018 12/08/2022 Abdominal pain, right upper quadrant 02/16/2007 12/08/2022 Diabetes mellitus type 2, co ntrolled, without complications 07/13/2006 12/08/2022 Overview: 2005 documented as of this encounter (statuses as of 07/21/2023) [facility]* Problem Noted Date Diagnosed Date Resolved Date Controlled type 2 diabetes m ellitus without complication, without long-term current use of insulin 10/12/2018 12/08/2022 Abdominal pain, right upper quadrant 02/16/2007 12/08/2022 Diabetes mellitus type 2, co ntrolled, without complications 07/13/2006 12/08/2022 Overview: 2005 documented as of this encounter (statuses as of 07/24/2023) [facility]arrative* Problem Noted Date Diagnosed Date Resolved Date Controlled type 2 diabetes m ellitus without complication, without long-term current use of insulin 10/12/2018 12/08/2022 Abdominal pain, right upper quadrant 02/16/2007 12/08/2022 Diabetes mellitus type 2, co ntrolled, without complications 07/13/2006 12/08/2022 Overview: 2005 documented as of this encounter (statuses as of 07/28/2023) [facility]arrative* Problem Noted Date Diagnosed Date Resolved Date Controlled type 2 diabetes m ellitus without complication, without long-term current use of insulin 10/12/2018 12/08/2022 Abdominal pain, right upper quadrant 02/16/2007 12/08/2022 Diabetes mellitus type 2, co ntrolled, without complications 07/13/2006 12/08/2022 Overview: 2005 documented as of this encounter (statuses as of 07/29/2023) [facility] Narrative* Problem Noted Date Diagnosed Date Resolved Date Controlled type 2 diabetes m ellitus without complication, without long-term current use of insulin 10/12/2018 12/08/2022 Abdominal pain, right upper quadrant 02/16/2007 12/08/2022 Diabetes mellitus type 2, co ntrolled, without complications 07/13/2006 12/08/2022 Overview: 2005 documented as of this encounter (statuses as of 08/01/2023) [facility] History of Past illness Narrative* Problem Noted Date Diagnosed Date Resolved Date Controlled type 2 diabetes m ellitus without complication, without long-term current use of insulin 10/12/2018 12/08/2022 Abdominal pain, right upper quadrant 02/16/2007 12/08/2022 Diabetes mellitus type 2, co ntrolled, without complications 07/13/2006 12/08/2022 Overview: 2005 documented as of this encounter (statuses as of 08/10/2023) [facility] History of Past illness Narrative* Problem Noted Date Diagnosed Date Resolved Date Controlled type 2 diabetes m ellitus without complication, without long-term current use of insulin 10/12/2018 12/08/2022 Abdominal pain, right upper quadrant 02/16/2007 12/08/2022 Diabetes mellitus type 2, co ntrolled, without complications 07/13/2006 12/08/2022 Overview: 2005 documented as of this encounter (statuses as of 10/29/2023) [facility] History of Past illness Narrative* Problem Noted Date Diagnosed Date Resolved Date Controlled type 2 diabetes m ellitus without complication, without long-term current use of insulin 10/12/2018 12/08/2022 Abdominal pain, right upper quadrant 02/16/2007 12/08/2022 Diabetes mellitus type 2, co ntrolled, without complications 07/13/2006 12/08/2022 Overview: 2005 documented as of this encounter (statuses as of 11/13/2023) [facility] History of Past illness Narrative* Problem Noted Date Diagnosed Date Resolved Date Controlled type 2 diabetes m ellitus without complication, without long-term current use of insulin 10/12/2018 12/08/2022 Abdominal pain, right upper quadrant 02/16/2007 12/08/2022 Diabetes mellitus type 2, co ntrolled, without complications 07/13/2006 12/08/2022 Overview: 2005 documented as of this encounter (statuses as of 11/13/2023) [facility] History of Past illness Narrative* Problem Noted Date Diagnosed Date Resolved Date Controlled type 2 diabetes m ellitus without complication, without long-term current use of insulin 10/12/2018 12/08/2022 Abdominal pain, right upper quadrant 02/16/2007 12/08/2022 Diabetes mellitus type 2, co ntrolled, without complications 07/13/2006 12/08/2022 Overview: 2005 documented as of this encounter (statuses as of 11/18/2023) [facility] History of Past illness Narrative* Problem Noted Date Diagnosed Date Resolved Date Controlled type 2 diabetes m ellitus without complication, without long-term current use of insulin 10/12/2018 12/08/2022 Abdominal pain, right upper quadrant 02/16/2007 12/08/2022 Diabetes mellitus type 2, co ntrolled, without complications 07/13/2006 12/08/2022 Overview: 2005 documented as of this encounter (statuses as of 11/19/2023) [facility] History of Past illness Narrative* Problem Noted Date Diagnosed Date Resolved Date Controlled type 2 diabetes m ellitus without complication, without long-term current use of insulin 10/12/2018 12/08/2022 Abdominal pain, right upper quadrant 02/16/2007 12/08/2022 Diabetes mellitus type 2, co ntrolled, without complications 07/13/2006 12/08/2022 Overview: 2005 documented as of this encounter (statuses as of 11/19/2023) [facility] History of Past illness Narrative* Problem Noted Date Diagnosed Date Resolved Date Controlled type 2 diabetes m ellitus without complication, without long-term current use of insulin 10/12/2018 12/08/2022 Abdominal pain, right upper quadrant 02/16/2007 12/08/2022 Diabetes mellitus type 2, co ntrolled, without complications 07/13/2006 12/08/2022 Overview: 2005 documented as of this encounter (statuses as of 11/25/2023) [facility] History of Past illness Narrative* Problem Noted Date Diagnosed Date Resolved Date Controlled type 2 diabetes m ellitus without complication, without long-term current use of insulin 10/12/2018 12/08/2022 Abdominal pain, right upper quadrant 02/16/2007 12/08/2022 Diabetes mellitus type 2, co ntrolled, without complications 07/13/2006 12/08/2022 Overview: 2005 documented as of this encounter (statuses as of 12/09/2023) [facility] History of Past illness Narrative* Problem Noted Date Diagnosed Date Resolved Date Controlled type 2 diabetes m ellitus without complication, without long-term current use of insulin 10/12/2018 12/08/2022 Abdominal pain, right upper quadrant 02/16/2007 12/08/2022 Diabetes mellitus type 2, co ntrolled, without complications 07/13/2006 12/08/2022 Overview: 2005 documented as of this encounter (statuses as of 12/10/2023) [facility] History of Past illness Narrative* Problem Noted Date Diagnosed Date Resolved Date Controlled type 2 diabetes m ellitus without complication, without long-term current use of insulin 10/12/2018 12/08/2022 Abdominal pain, right upper quadrant 02/16/2007 12/08/2022 Diabetes mellitus type 2, co ntrolled, without complications 07/13/2006 12/08/2022 Overview: 2005 documented as of this encounter (statuses as of 01/02/2024) [facility] History of Past illness Narrative* Problem Noted Date Diagnosed Date Resolved Date Controlled type 2 diabetes m ellitus without complication, without long-term current use of insulin 10/12/2018 12/08/2022 Abdominal pain, right upper quadrant 02/16/2007 12/08/2022 Diabetes mellitus type 2, co ntrolled, without complications 07/13/2006 12/08/2022 Overview: 2005 documented as of this encounter (statuses as of 01/02/2024) [facility] History of Past illness Narrative* Problem Noted Date Diagnosed Date Resolved Date Controlled type 2 diabetes m ellitus without complication, without long-term current use of insulin 10/12/2018 12/08/2022 Abdominal pain, right upper quadrant 02/16/2007 12/08/2022 Diabetes mellitus type 2, co ntrolled, without complications 07/13/2006 12/08/2022 Overview: 2005 documented as of this encounter (statuses as of 01/03/2024) [facility] History of Past illness Narrative* Problem Noted Date Diagnosed Date Resolved Date Controlled type 2 diabetes m ellitus without complication, without long-term current use of insulin 10/12/2018 12/08/2022 Abdominal pain, right upper quadrant 02/16/2007 12/08/2022 Diabetes mellitus type 2, co ntrolled, without complications 07/13/2006 12/08/2022 Overview: 2005 documented as of this encounter (statuses as of 01/06/2024) [facility] History of Past illness Narrative* Problem Noted Date Diagnosed Date Resolved Date Controlled type 2 diabetes m ellitus without complication, without long-term current use of insulin 10/12/2018 12/08/2022 Abdominal pain, right upper quadrant 02/16/2007 12/08/2022 Diabetes mellitus type 2, co ntrolled, without complications 07/13/2006 12/08/2022 Overview: 2005 documented as of this encounter (statuses as of 01/06/2024) [facility] History of Past illness Narrative* Problem Noted Date Diagnosed Date Resolved Date Controlled type 2 diabetes m ellitus without complication, without long-term current use of insulin 10/12/2018 12/08/2022 Abdominal pain, right upper quadrant 02/16/2007 12/08/2022 Diabetes mellitus type 2, co ntrolled, without complications 07/13/2006 12/08/2022 Overview: 2005 documented as of this encounter (statuses as of 01/07/2024) [facility] History of Past illness Narrative* Problem Noted Date Diagnosed Date Resolved Date Controlled type 2 diabetes m ellitus without complication, without long-term current use of insulin 10/12/2018 12/08/2022 Abdominal pain, right upper quadrant 02/16/2007 12/08/2022 Diabetes mellitus type 2, co ntrolled, without complications 07/13/2006 12/08/2022 Overview: 2005 documented as of this encounter (statuses as of 01/14/2024) [facility] + Plan note No data available for this section [facility] Evaluation note* Diagnosis Acute left ankle pain- Primary [facility]* Diagnosis Closed fracture of distal end of left fibula, unspecified fracture morphology, initial encounter- Primary documented in this encounter [facility] note* Diagnosis Essential hypertension, benign- Primary Acquired hypothyroidism Unspecified hypothyroidism Controlled type 2 diabetes mellitus without complication, without long-term current use of insulin (HCC) documented in this encounter [facility] note* Diagnosis Closed fracture of distal end of left fibula, unspecified fracture morphology, initial encounter documented in this encounter [facility] note* Diagnosis Uncontrolled hypertension- Primary Unspecified essential hypertension Palpitations Uncontrolled type 2 diabetes mellitus with hyperglycemia (HCC) Essential hypertension, benign Acquired hypothyroidism Unspecified hypothyroidism [facility] Diagnosis Uncontrolled hypertension- Primary Unspecified essential hypertension documented [facility] this [facility]* Diagnosis Closed fracture of distal end of left fibula, unspecified fracture morphology, initial encounter [facility]* Diagnosis Encounter for screening mammogram for breast cancer documented [facility] this [facility]* Diagnosis Vitamin D deficiency Unspecified vitamin D deficiency documented in this encounter [facility]No assessment [facility]* Diagnosis Vitamin B12 deficiency Other B-complex deficiencies documented in this encounter [facility]* Diagnosis Acquired hypothyroidism Unspecified hypothyroidism documented [facility] this [facility]* Diagnosis Essential hypertension, benign documented in this encounter [facility] note* Diagnosis Acquired hypothyroidism- Primary Unspecified hypothyroidism Vitamin D deficiency Unspecified vitamin D deficiency Uncontrolled type 2 diabetes mellitus with hyperglycemia (HCC) Dyslipidemia Other and unspecified hyperlipidemia Iron deficiency anemia, unspecified iron deficiency anemia type [facility]* Diagnosis Acquired hypothyroidism Unspecified hypothyroidism Vitamin B12 deficiency Other B-complex deficiencies [facility]* Diagnosis Onset Date Resolution Status Ischemic cerebrovascular accident (CVA) of frontal lob e [facility] Work Phone: Evaluation note* Diagnosis Ischemic stroke without residual deficits (HCC)- Primary Essential hypertension, benign Uncontrolled type 2 diabetes mellitus with hyperglycemia (HCC) Dyslipidemia Other and unspecified hyperlipidemia Encounter for smoking cessation counseling Counseling on substance use and abuse Controlled type 2 diabetes mellitus without complication, without long-term current use of insulin (HCC) [facility]* Diagnosis Uncontrolled type 2 diabetes mellitus with hyperglycemia (HCC)- Primary Ischemic stroke without residual deficits (HCC) Dyslipidemia Other and unspecified hyperlipidemia Acquired hypothyroidism Unspecified hypothyroidism Vitamin D deficiency Unspecified vitamin D deficiency Vitamin B12 deficiency Other B-complex deficiencies History of tobacco abuse Personal history of tobacco use, presenting hazards to health [facility] Diagnosis Vitamin B12 deficiency Other B-complex deficiencies [facility] Acquired hypothyroidism Unspecified hypothyroidism Vitamin D deficiency Unspecified vitamin D deficiency [facility]* Diagnosis Uncontrolled type 2 diabetes mellitus with hyperglycemia (HCC)- Primary Acquired hypothyroidism Unspecified hypothyroidism Dyslipidemia Other and unspecified hyperlipidemia History of tobacco abuse Personal history of tobacco use, presenting hazards to health Essential hypertension, benign [facility]* Diagnosis Onset Date Resolution Status Polyneuropathy acute 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 Ischemic stroke resolved [facility] Work Phone: Evaluation note* Diagnosis Uncontrolled type 2 diabetes mellitus with hyperglycemia (HCC) documented [facility]* Diagnosis Uncontrolled type 2 diabetes mellitus with hyperglycemia (HCC) documented [facility]* Diagnosis Uncontrolled type 2 diabetes mellitus with hyperglycemia (HCC)- Primary Acquired hypothyroidism Unspecified hypothyroidism Vitamin B12 deficiency Other B-complex deficiencies [facility]* Diagnosis Nausea and vomiting, unspecified vomiting type- Primary Hyperglycemia Other abnormal glucose Controlled type 2 diabetes mellitus without complication, without long-term current use of insulin (HCC) documented [facility] this [facility]* Diagnosis Uncontrolled type 2 diabetes mellitus with hyperglycemia (HCC)- Primary Acquired hypothyroidism Unspecified hypothyroidism Essential hypertension, benign Renal artery stenosis (HCC) Atherosclerosis of renal artery documented [facility]* Diagnosis Uncontrolled type 2 diabetes mellitus with hyperglycemia (HCC) documented [facility]* Diagnosis Hypokalemia- Primary Hypopotassemia documented in this encounter [facility]* Diagnosis Onset Date Resolution Status Hypokalemia acute Hypokalemia acute Polyneuropathy acute 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 Ischemic stroke resolved [facility] Work Phone: Evaluation note* Diagnosis Essential hypertension, benign- Primary [facility]* Diagnosis Essential hypertension, benign- Primary Acquired hypothyroidism Unspecified hypothyroidism Controlled type 2 diabetes mellitus without complication, with long-term current use of insulin (HCC) Uncontrolled type 2 diabetes mellitus with hyperglycemia (HCC) documented [facility]* Diagnosis Essential hypertension, benign- Primary Situational anxiety Other anxiety states documented [facility] this [facility]* Diagnosis Ischemic stroke without residual deficits (HCC) [facility] Uncontrolled type 2 diabetes mellitus [...] Other anxiety states [facility]* Diagnosis Vaginal itching- Primary Pruritus of genital organs Dysuria Glucosuria Glycosuria [facility] Diagnosis BV (bacterial vaginosis)- Primary Vaginitis and vulvovaginitis, unspecified [facility] Acquired hypothyroidism Unspecified hypothyroidism Uncontrolled type 2 diabetes mellitus with hyperglycemia (HCC) [facility] Diagnosis Uncontrolled type 2 diabetes mellitus with hyperglycemia (HCC)- Primary Situational anxiety Other anxiety states [facility] Diagnosis Uncontrolled type 2 diabetes mellitus with hyperglycemia (HCC)- Primary Vaginal yeast infection Candidiasis of vulva and vagina Poor sleep [facility] Diagnosis Vitamin D deficiency Unspecified vitamin D deficiency [facility] Diagnosis Encounter for screening mammogram for breast cancer [facility] Diagnosis Gastroenteritis- Primary Other and unspecified noninfectious gastroenteritis and colitis Uncontrolled type 2 diabetes mellitus with hyperglycemia (HCC) Acquired hypothyroidism Unspecified hypothyroidism Obesity, Class I, BMI 30-34.9 Obesity, unspecified Acute dehydration Situational anxiety Other anxiety states [facility] Diagnosis Type 2 diabetes mellitus with other circulatory complication, with long-term current use of insulin (HCC)- Primary [facility] Diagnosis Ischemic stroke without residual deficits (HCC) [facility] Diagnosis Thickened endometrium- Primary Nonspecific (abnormal) findings on radiological and other examination of genitourinary organs LLQ pain Abdominal pain, left lower quadrant [facility]* Diagnosis Uncontrolled type 2 diabetes mellitus with hyperglycemia (HCC)- Primary Acquired hypothyroidism Unspecified hypothyroidism Essential hypertension, benign Vitamin B12 deficiency Other B-complex deficiencies Hyperlipidemia, mixed Mixed hyperlipidemia Tobacco use disorder Vitamin D deficiency Unspecified vitamin D deficiency [facility]* Diagnosis Acute left ankle pain [facility]* Diagnosis Type 2 diabetes mellitus with other circulatory complication, with long-term current use of insulin (HCC)- Primary [facility]* Diagnosis Acquired hypothyroidism Unspecified hypothyroidism Uncontrolled type 2 diabetes mellitus with hyperglycemia (HCC) documented in this encounter [facility] note* Diagnosis Uncontrolled type 2 diabetes mellitus with hyperglycemia (HCC) [facility]* Diagnosis Hyperlipidemia, mixed- Primary Mixed hyperlipidemia Hypothyroidism, unspecified type 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, without long-term current use of insulin (HCC) [facility]* Diagnosis Medicare annual wellness visit, subsequent- Primary Routine general medical examination at a health care facility Uncontrolled type 2 diabetes mellitus with hyperglycemia (HCC) Vitamin B12 deficiency Other B-complex deficiencies 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, without long-term current use of insulin (HCC) Hypothyroidism, unspecified type Hyperlipidemia, mixed Mixed hyperlipidemia Essential hypertension, benign Acquired hypothyroidism Unspecified hypothyroidism Vitamin D deficiency Unspecified vitamin D deficiency [facility]* Diagnosis Acquired hypothyroidism Unspecified hypothyroidism [facility]* Diagnosis Abnormal results of thyroid function studies- Primary Nonspecific abnormal results of thyroid function study [facility]* Diagnosis Ischemic stroke without residual deficits (HCC) [facility]* Diagnosis Uncontrolled type 2 diabetes mellitus with hyperglycemia (HCC)- Primary Hyperlipidemia, mixed Mixed hyperlipidemia Vitamin B12 deficiency Other B-complex deficiencies Vitamin D deficiency Unspecified vitamin D deficiency Essential hypertension, benign Acquired hypothyroidism Unspecified hypothyroidism Pre-op examination Preoperative examination, unspecified [facility]* Diagnosis Uncontrolled type 2 diabetes mellitus with hyperglycemia (HCC)- Primary [facility]* Diagnosis Encounter for screening mammogram for breast cancer [facility]* Diagnosis Type 2 diabetes mellitus with other circulatory complication, with long-term current use of insulin (HCC)- Primary Abnormal weight gain [facility] Diagnosis Uncontrolled type 2 diabetes mellitus with hyperglycemia (HCC) Screening for depression documented in this encounter [facility] note* Diagnosis Uncontrolled type 2 diabetes mellitus with hyperglycemia (HCC) documented in this encounter [facility] for referral (narrative)* Diagnostic Procedure Only (Urgent) - Closed Specialty Diagnoses / Procedures Referred By Contac t Referred To Contact XR IMAGING Diagnoses Acute left ankle pain Procedures XR ANKLE GENERAL 3V AP/LAT/OBL LEFT RADEX ANKLE COMPLETE MINIMUM 3 VIEWS Nataly Ryan APRN.CNP [address] [place] [address] Xr Imaging Referral ID Status Reason Start Date Expiration Date V isits Requested Visits Authorized [id number] Closed Auto-Generate d Referral 01/23/2022 09/27/2022 1 1 [facility] for referral (narrative)* Diagnostic Procedure Only (Routine) - Authorized Specialty Diagnoses / Procedures Referred By Contac t Referred To Contact XR IMAGING Diagnoses Closed fracture of distal end of left fibula, unspecified fracture morphology, initial encounter Procedures XR ANKLE GENERAL 3V AP/LAT/OBL LEFT RADEX ANKLE COMPLETE MINIMUM 3 VIEWS Steve [place] [address] Xr Imaging Referral ID Status Reason Start Date Expiration Date Visits Requested Visits Authorized [id number] Authorized Auto-Generat ed Referral 02/10/2022 09/27/2022 1 1 [facility] for referral (narrative)* Diagnostic Procedure Only (Routine) - Closed Specialty Diagnoses / Procedures Referred By Contac t Referred To Contact XR IMAGING Diagnoses Closed fracture of distal end of left fibula, unspecified fracture morphology, initial encounter Procedures XR ANKLE GENERAL 3V AP/LAT/OBL LEFT RADEX ANKLE COMPLETE MINIMUM 3 VIEWS Steve Rodriguez [address] [place] [address] Xr Imaging Referral ID Status Reason Start Date Expiration Date V isits Requested Visits Authorized [id number] Closed Auto-Generate d Referral 02/10/2022 09/27/2022 1 1 [facility] for referral (narrative)* Outpatient Procedure (Routine) - Open Specialty Diagnoses / Procedures Referred By Contac t Referred To Contact [facility] Diagnoses Uncontrolled hypertension Palpitations Procedures US RENAL ARTERY ZULMA VAS LAB DUP-SCAN ARTL SKYLAR ABDL/PEL/SCROT&/RPR ORGN COM Preet Farrar DO [address] [place] [address] [address] Referral ID Status Reason Start Date Expiration Date V isits Requested Visits Authorized [id number] Open Auto-Generate d Referral 02/19/2022 02/19/2023 1 1 * Outpatient Procedure (Routine) - Closed Specialty Diagnoses / Procedures Referred By Contac t Referred To Contact [facility] Diagnoses Uncontrolled hypertension Palpitations Procedures ECG COMPLETE ECG ROUTINE ECG W/LEAST 12 LDS W/I&R Preet Farrar DO [address] [place] [address] [facility] [address] [address] Referral ID Status Reason Start Date Expiration Date V isits Requested Visits Authorized [id number] Closed Auto-Generate d Referral 02/19/2022 02/19/2023 1 1 * Outpatient Procedure (Routine) - Authorized Specialty Diagnoses / Procedures Referred By Contac t Referred To Contact [facility] Diagnoses Uncontrolled hypertension Palpitations Procedures ECHO ECHO TTHRC R-T 2D W/WOM-MODE COMPL SPEC&COLR D Preet Farrar DO [address] [place] [address] [address] Referral ID Status Reason Start Date Expiration Date Visits Requested Visits Authorized [id number] Authorized Auto-Generat ed Referral 02/19/2022 02/19/2023 1 1 * Outpatient Procedure (Routine) - Open Specialty Diagnoses / Procedures Referred By Miguel Ángel t Referred To Contact [facility] Diagnoses Uncontrolled hypertension Palpitations Procedures US CAROTID ARTERIES ZULMA VAS LAB DUPLEX SCAN EXTRACRANIAL ART COMPL BI STUDY Preet Farrar, DO [address] [place] [address] [facility] [place] [address] [place] [address] Referral ID Status Reason Start Date Expiration Date V isits Requested Visits Authorized [id number] Open Auto-Generate d Referral 02/19/2022 02/19/2023 1 1 [facility] for referral (narrative)* Diagnostic Procedure Only (Routine) - Closed Specialty Diagnoses / Procedures Referred By Miguel Ángel t Referred To Contact XR IMAGING Diagnoses Closed fracture of distal end of left fibula, unspecified fracture morphology, initial encounter Procedures XR ANKLE GENERAL 3V AP/LAT/OBL LEFT RADEX ANKLE COMPLETE MINIMUM 3 VIEWS Steve Rodriguez [address] [place] [address] Xr Imaging Referral ID Status Reason Start Date Expiration Date V isits Requested Visits Authorized [id number] Closed Auto-Generate d Referral 02/28/2022 03/30/2023 1 1 [facility] for referral (narrative)* Diagnostic Procedure Only (Routine) - Pending Review Specialty Diagnoses / Procedures Referred By Miguel Ángel t Referred To Contact BR IMAGING Diagnoses Encounter for screening mammogram for breast cancer Procedures LAURO SCREENING SCREENING MAMMOGRAPHY BI 2-VIEW BREAST INC CAD Preet Farrar, DO [address] [place] [address] [facility] [address] [place] [address] Referral ID Status Reason Start Date Expiration Date Visits Requested Visits Authorized [id number] Pending Review Auto-Generat ed Referral 03/26/2022 04/25/2023 1 1 [facility] for referral (narrative)* Diagnostic Procedure Only (Routine) - Pending Review Specialty Diagnoses / Procedures Referred By Contac t Referred To Contact BR IMAGING Diagnoses Encounter for screening mammogram for breast cancer Procedures LAURO SCREENING SCREENING MAMMOGRAPHY BI 2-VIEW BREAST INC CAD Preet Farrar, DO [address] [place] [address] [facility] [address] [place] [address] Referral ID Status Reason Start Date Expiration Date Visits Requested Visits Authorized [id number] Pending Review Auto-Generat ed Referral 02/03/2024 03/04/2025 1 1 [facility] for referral (narrative)* Diagnostic Procedure Only (Urgent) - Closed Specialty Diagnoses / Procedures Referred By Contac t Referred To Contact XR IMAGING Diagnoses Acute left ankle pain Procedures XR ANKLE GENERAL 3V AP/LAT/OBL LEFT RADEX ANKLE COMPLETE MINIMUM 3 VIEWS Nataly Ryan APRN.CNP [address] [place] [address] [place] [address] Referral ID Status Reason Start Date Expiration Date V isits Requested Visits Authorized [id number] Closed Auto-Generate d Referral 01/23/2022 09/27/2022 1 1 [facility] for referral (narrative)No reason for referral [facility] Reason for visit Narrative* Diagnostic Procedure Only (Routine) - Closed Specialty Diagnoses / Procedures Referred By Contac t Referred To Contact XR IMAGING Diagnoses Closed fracture of distal end of left fibula, unspecified fracture morphology, initial encounter Procedures XR ANKLE GENERAL 3V AP/LAT/OBL LEFT RADEX ANKLE COMPLETE MINIMUM 3 VIEWS Steve Rodriguez [address] [place] [address] Xr Imaging Referral ID Status Reason Start Date Expiration Date V isits Requested Visits Authorized [id number] Closed Auto-Generate d Referral 02/10/2022 09/27/2022 1 1 [facility] for visit Narrative* Diagnostic Procedure Only (Routine) - Closed Specialty Diagnoses / Procedures Referred By Contac t Referred To Contact XR IMAGING Diagnoses Closed fracture of distal end of left fibula, unspecified fracture morphology, initial encounter Procedures XR ANKLE GENERAL 3V AP/LAT/OBL LEFT RADEX ANKLE COMPLETE MINIMUM 3 VIEWS Steve Rodriguez [address] [place] [address] Xr Imaging Referral ID Status Reason Start Date Expiration Date V isits Requested Visits Authorized [id number] Closed Auto-Generate d Referral 02/28/2022 09/27/2022 1 1 [facility] for visit Narrative* Diagnostic Procedure Only (Urgent) - Closed Specialty Diagnoses / Procedures Referred By Contac t Referred To Contact XR IMAGING Diagnoses Acute left ankle pain Procedures XR ANKLE GENERAL 3V AP/LAT/OBL LEFT RADEX ANKLE COMPLETE MINIMUM 3 VIEWS Nataly Ryan APRN.ENGINEERING TEST SPECIALIST [address] [place] [address] [place] [address] Referral ID Status Reason Start Date Expiration Date V isits Requested Visits Authorized [id number] Closed Auto-Generate d Referral 01/23/2022 09/27/2022 1 1 [facility] Discharge Instructions * Discharge Instr - DOMINIK* Valarie Aguilar RN - 12/26/2020 1:39 PM EDT Continuity of Care Form Patient Name: Leidy Blanco : 1955 Admit date: 12/21/2020 Discharge [...] care provider on file. 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 Independent Med Delivery whole Wound Care Documentation [...] Readmission: 9 Discharging to Facility/ Agency Name: [facility] Address: [address] [place] [address] Dialysis Facility (if applicable) Name: Address: Dialysis Schedule: Phone: Fax: Secondary English Teacher/Intelligence Analyst signature: ICIAN SECTION Prognosis: Fair Condition at Discharge: Stable Rehab Potential (if transferring to Rehab): Good Recommended Labs or Other Treatments After Discharge: none Physician Certification: I certify the above information and transfer of Leidy Blanco is necessaryfor the continuing treatment of [...] better immediately after surgery and can't overdo it. Even if you feel well, it is [...] level decreases, you may begin to take [id number] Extra Strength Tylenol. The maximum Tylenol you [...] you are to contact the office at [phone] or via [employer], for additional refills You can receive up [...] additional questions/concerns, please contact the office at [employer] message For life-threathening emergency, please call 911 documented in this encounter History of Present Illness * Vera Campbell DTR - 12/28/2020 1:02 PM EDT Nutrition update completed. Chart reviewed. Patient to be monitored and followed by the diet optical manufacturing technician. * Steve Veloz - 12/28/2020 12:04 PM EDT Physical Therapy Facility/Department: [facility] Daily Treatment Note NAME: Leidy Blanco : 1955 Date of Service: 12/28/2020 [...] technique. Pt. is getting discharged today to [facility]. Pt. was in better spirits today due [...] stated she was excited to go to [facility] because her kids are closer. Pt. 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 supervisor vendor quality time 1400 * Tammi Rae DO - 12/27/2020 6:36 PM EDT Images from the original note were not included. Hospitalist Progress Note 12/27/2020 6:36 PM Subjective: Admit Date: 12/21/2020 PCP: No primary care provider on file. Interval History: No overnight issues. DIET GENERAL; I/O last 3 completed shifts: In: 200 [P.O.:200] Out: 1 [Urine:1] Date 12/27/20 0000 - 12/27/20 2359 Shift [id number] [id number] 6334-8650 24 Hour Total INTAKE P.O.(mL/kg/hr) 300(0.5) 240 [...] mg Oral Once per day on Thu No results for input(s): WBC, HGB, PLT in the last 72 hours. No results for input(s): NA, K, CL, CO2, BUN, CREATININE, GLUCOSE in the last 72 hours. No results for input(s): AST, ALT, ALB, BILITOT, ALKPHOS in the last 72 hours. No results found for: TRIG, HDL, LDLCALC, CHOL No results found for: PHART, PO2ART, [id number] No results for input(s): INR in the [...] For question after 7 PM, please contact [facility] hospitalist on consult. 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 Hospitalist Progress Note 12/26/2020 5:59 PM Subjective: Admit Date: 12/21/2020 PCP: No primary care provider on file. Interval History: No overnight issues. DIET GENERAL; I/O last 3 completed shifts: In: 2300 [P.O.:2300] Out: 1100 [Urine:1100] Date 12/26/20 - 12/26/202358 Shift [id number] 0931-2749 0431-8934 24 Hour Total INTAKE P.O.(mL/kg/hr) 600(0.9) 200(0.3) [...] 120 mg Oral Once per day on Sun Thu Recent Labs 12/24/20 0109 WBC 14.5* HGB 12.5 PLT 278 No results for input(s): NA, K, CL, CO2, BUN, CREATININE, GLUCOSE in the last 72 hours. No results for input(s): AST, ALT, ALB, BILITOT, ALKPHOS in the last 72 hours. No results found for: TRIG, HDL, LDLCALC, CHOL No results found for: PHART, PO2ART, [id number] No results for input(s): INR in the [...] For question after 7 PM, please contact [facility] hospitalist on consult. Tammi Rae MD Rounding Hospitalist * Mayte Gunter MD - 12/25/2020 12:46 PM EDT Hospitalist Progress Note 12/25/2020 12:46 PM Subjective: Admit Date: 12/21/2020 PCP: No primary care provider on file. Interval History: No overnight issues. DIET GENERAL; I/O last 3 completed shifts: In: - Out: 1900 [Urine:1900] Date 12/25/20 0000 - 12/25/20 2359 Shift [id number] 3638-9036 1154-8422 24 Hour Total INTAKE Shift Total(mL/kg) OUTPUT [...] 120 mg Oral Once per day on Sun Thu Recent Labs 12/22/20 1633 12/23/20 0130 [...] CHOL No results found for: PHART, PO2ART, [id number] No results for input(s): INR in the [...] Therapy Initial Assessment Date: 12/25/2020 Patient Name: Leidy Blanco : 1955 Date of Service: 12/25/2020 Discharge Recommendations: IP Rehab This provider wore an N95, goggles, and gloves during the treatment session. 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 Sit to stand from BSC with max assist, dependent for helen-care in [...] assistance;2 Person assistance Cognition Overall Cognitive Status: [facility] Cognition Comment: impulsive, anxious Sensation Overall Sensation [...] & procurement, Self-Care / ADL OutComes Score AM-[facility] Daily Activity Inpatient How much help for putting on and taking off regular lower body clothing?: Total How much help for Bathing?: A Lot How much help for Toileting?: Total How much help for putting on and taking off regular upper body clothing?: A Little How much help for taking care of personal grooming?: None How much help for eating meals?: None AM-[facility] Inpatient Daily Activity Raw Score: 15 AM-[facility] Inpatient ADL T-Scale Score : 34.69 ADL [...] Time Individual Concurrent Group Co-treatment Time In 914 Time Out 1000 Minutes 45 Timed Code Treatment Minutes: 25 Minutes(self care:1 funct act:1) Variance: 7(7 minutes- pt on BSC) Patient's Occupational Therapy Plan [facility]. Goals and/or treatment plan was established in collaboration with patient/family/other representatives. Jemima Bonilla OTR/L Jemima Bonilla OT * Ness Aparicio, PANTRY STEWARD/STEWARDESS - 12/25/2020 10:21 AM EDT Physical Therapy Facility/Department: [facility] Daily Treatment Note NAME: Leidy Blanco : 1955 Date of Service: 12/25/2020 [...] 1 supine to sit (OK for leg transmission supervisor or manual support of LEs) - PROGRESSING Short term goal 2: Sitting EOB /10 Modified [place] - PROGRESSING Short term goal 3: Transfer board to w/c min of 1 - NOT ADDRESSED Short term goal 4: Gross LLE antigravity strength 3-/5, RLE 2/5 - PROGRESSING Short term goal 5: pt/ family indep donning LSO - PROGRESSING long-term goals Time Frame for long-term goals : 4 weeks long-term goal 1: Bed mobility indep - PROGRESSING 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 goal 2: Bed to chair, any safe approach, supv - PROGRESSING 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 goal 3: Sit to stand mod of 1 - PROGRESSING long-term goal 4: Sitting balance modified [place] 06/07, standing /10 - PROGRESSING 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 goal 5: Amb 15', device, mod of [...] Date 12/24/20 0000 - 12/24/20 2359 Shift [id number] 4724-2159 0645-7989 24 Hour Total INTAKE Shift Total(mL/kg) OUTPUT [...] CHOL No results found for: PHART, PO2ART, TCO6BMS No results for input(s): INR in the [...] AVS -Ortho to sign off, please page 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 resident with 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 or concerns Treva Henderson [...] Date 12/23/20 0000 - 12/23/20 2359 Shift [id number] [phone] 24 Hour Total INTAKE P.O.(mL/kg/hr) 400(0.6) 400 [...] CHOL No results found for: PHART, PO2ART, TSC2TSE Recent Labs 12/21/20 0528 INR 1.0 No [...] 12/23/2020 11:24 AM EDT Physical Therapy Facility/Department: [facility] Daily Treatment Note NAME: Leidy Blanco : 1955 Date of Service: 12/23/2020 [...] 1 supine to sit (OK for leg transmission supervisor or manual support of LEs) - PROGRESSING Short term goal 2: Sitting EOB 6/[birth year] Modified [place] - PROGRESSING Short term goal 3: Transfer board to w/c min of 1 - NOT MET Short term goal 4: Gross LLE antigravity strength 3-/5, RLE 2/5 - NOT MET Short term goal 5: pt/ family indep donning LSO - PROGRESSING long-term goals Time Frame for long-term goals : 4 weeks 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 Dori Candelario, SAMMY\ * Sulaiman Youngblood MD - 12/23/2020 9:56 [...] output <40cc/shift, 60 overnight, will likely pull 12/24 -Please empty and record output q shift [...] be monitored and followed by the diet optical manufacturing technician. * Mayte Gunter MD - 12/22/2020 12:02 PM EDT Hospitalist Progress Note 12/22/2020 12:02 PM Subjective: Admit Date: 12/21/2020 PCP: No primary care provider on file. Interval History: No overnight issues. DIET GENERAL; I/O last 3 completed shifts: In: 2029 [P.O.:180; I.V.:1850] Out: 2640 [Urine:2250; Drains:140; Blood:250] Date 12/22/20 0000 - 12/22/20 235 Shift [id number] 2684-1088 4501-9740 24 Hour Total INTAKE Shift Total(mL/kg) OUTPUT [...] CHOL No results found for: PHART, PO2ART, VPC0SYO Recent Labs 12/21/20 0528 INR 1.0 No [...] anticoagulation POD #3 PT/OT Mayte Gunter MD Rounding Hospitalist * Jimbo Campuzano, PT - 12/22/2020 11:30 AM EDT Physical Therapy Facility/Department: [facility] Initial Assessment NAME: Leidy Blanco : 1955 Date of Service: 12/22/2020 [...] Will procure multipodus orthotics for now[facility] Pt [facility]/ hopes to be discharged to [facility]--rehab level PT seems most appropriate. Prognosis: [...] (pt has order for LSO (consult to [employer])) Position Activity Restriction Spinal Precautions: No Bending, [...] [facility] 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 IADL Comments: pt had [...] AM-PAC Inpatient T-Scale Score : 23.55 (12/22/20 1104) Mobility Inpatient CMS 0-100% Score: 100 (12/22/20 1104) Mobility Inpatient CMS G-Code Modifier : CN (12/22/20 1104) Goals Short term goals Time Frame for Short term goals: 2 weeks Short term goal 1: Log roll min of 1 for pelvic support; min of 1 supine to sit (OK for leg transmission supervisor or manual support of LEs) Short term goal 2: Sitting EOB 6[birth year]10 Modified [place] Short term goal 3: Transfer board to w/c min of 1 Short term goal 4: Gross LLE antigravity strength 3-/5, RLE 2/5 Short term goal 5: pt/ family indep donning LSO long-term goals Time Frame for 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 goals : 4 weeks long-term goal 1: Bed mobility indep 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 goal 2: Bed to chair, any safe approach, supv 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 goal 3: Sit to stand mod of 1 long-term goal 4: Sitting balance modified [place] 9/10, standing 3/10 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 goal 5: Amb 15', device, mod of 1 Patient Goals Patient goals : walk Therapy Time Individual Concurrent Group Co-treatment Time In 1026 Time Out 1104 Minutes 38 Patient s Physical Therapy Plan of Care supervision is transferred to [facility] Department Physical Therapist. PT wore N95 [...] 2-3 weeks, discharge instructions in AVS * Sahara Dover RN - 12/21/2020 10:14 PM EDT Spoke to Dtr Alicia on phone update given she is back in her hotel room and will see pt tomorrow am * Sahara Dover RN - 12/21/2020 8:45 PM EDT [...] Inactivated Comments Full Code 12/21/2020 3:31 AM Advance Directive Response Recorded Date/ Time Living Will No December 31, 2020 3:01pm Power of Clinical Assistant No December 31 3:01pm Advance Directive Response Recorded Date/ Time Name of Medical Power of Clinical Assistant Zoey kassidykimmy rosa November 02, 2022 5:30pm Living Will No November 02 5:30pm Power of Clinical Assistant Yes November 02, 2022 5:30pm Advance Directive Response Recorded Date/ Time Living Will No November 02 6:30pm Power of Clinical Assistant Yes November 02, 2022 6:30pm Advance Directive Response Recorded Date/ Time Living Will No July 01 8:20pm Power of Clinical Assistant No July 01 8:20pm Advance Directive Response Recorded Date/ Time Living Will No December 27, 2024 6:19pm Do you have a Healthcare Power of Clinical Assistant? No December 27, 2024 6:19pm Summary Purpose Family History No Family History Records Found Relationship Condition Age at Onset Recorded Date/T lynn Unknown Family History?Diabe deanna, High Cholesterol, Heart Disease Unknown December 28, 2020 8:02pm Family History?High Cholesterol, Heart Disease, - Unknown December 28, 2020 8:02pm Relationship Condition Age at Onset Recorded Date/T lynn Unknown Family History?Diabe deanna, High Cholesterol, Heart Disease Unknown December 28, 2020 7:02pm Family History?High Cholesterol, Heart Disease, - Unknown December 28, 2020 7:02pm Relationship Condition Age at Onset Recorded Date/T lynn mother Cardiac disease Unknown father Cardiac disease Unknown Hypertension Unknown Coronary artery disease Unknown Myocardial infarction Unknown Disorder of thyroid Unknown Diabetes mellitus Unknown Relationship Condition Age at Onset Recorded Date/T lynn mother Cardiac disease Unknown Alzheimer's disease Unknown father Cardiac disease Unknown Hypertension Unknown Coronary artery disease Unknown Myocardial infarction Unknown Disorder of thyroid Unknown Diabetes mellitus Unknown sister Malignant neoplasm Unknown Chief Complaint and Reason for Visit Chief Complaint STRICTURE OF ARTERY Chief Complaint ACUTE ISCHEMIC STROK E ACUTE ISCHEMIC STROKE ACUTE ISCHEMIC STROKE Reason for Visit Ischemic cerebrovasc ular accident (CVA) of frontal lobe Chief Complaint ACUTE ISCHEMIC STROK E ACUTE ISCHEMIC STROKE ACUTE ISCHEMIC STROKE ACUTE ISCHEMIC STROKE CVA / PT HAS RX Chief Complaint ACUTE ISCHEMIC STROK E CEREBRAL INFARCTION ASSESS LEFT ICA OCCLUSION Reason for Visit Polyneuropathy Occlusion of left internal carotid artery Ischemic stroke Chief Complaint ACUTE ISCHEMIC STROK E 30 DAY MONITOR CEREBRAL INFARCTION ASSESS LEFT ICA OCCLUSION RENAL STENOSIS Reason for Visit Polyneuropathy Occlusion of left internal carotid artery Ischemic stroke Chief Complaint ASSESS LEFT ICA OCCL USION RENAL STENOSIS VIRAL SYND/GASTRO, INDETER TROP, NEAR SYNCOPE VIRAL SYND/GASTRO, INDETER TROP, NEAR SYNCOPE VIRAL SYND/GASTRO, INDETER TROP, NEAR SYNCOPE 4 M FU EORDER Reason for Visit Hypokalemia Hypokalemia Polyneuropathy Occlusion of left internal carotid artery Ischemic stroke Chief Complaint Occlusion and stenos is of BILAT carotid artery Chief Complaint Admit Date RENAL ARTERY STENOSIS, CAROTID ARTERY ST ENOSIS September 06, 2024 7:55am Consult September 13, 2024 1:45pm ATHEROSCLEROTIC VASCULAR DISEASE, AORTIC STENOSIS October 10, 2024 6:33am ATHEROSCLEROTIC VASCULAR DISEASE, AORTIC STENOSIS October 10, 2024 9:53am TVHBS December 12, 2024 10: 49am PREOP December 15, 2024 12: 26pm Hysterectomy,TLH, Bilateral Salpingectom y December 27, 2024 7:21am Hysterectomy,TLH, Bilateral Salpingectom y December 27, 2024 8:20am Hysterectomy,TLH, Bilateral Salpingectom y December 27, 2024 5:29pm Hysterectomy,TLH, Bilateral Salpingectom y December 28, 2024 8:29am Reason for Visit Admit Date Endometrial hyperplasia without atypia D ecember 2023 1:45pm Endometrial hyperplasia without atypia M arch 2024 10:49am Endometrial hyperplasia without atypia A 2024 8:20am History of total vaginal hysterectomy (T VH) December 27, 2024 8:20am Atherosclerotic vascular disease December 272024 8:20am Carotid artery disease December 27, 2024 8 :20am Dyslipidemia December 27, 2024 8:20 am History of CVA (cerebrovascular accident ) December 27, 2024 8:20am Hypertension December 27, 2024 8:20 am Renal artery stenosis December 27, 2024 8: 20am Chief Complaint Admit Date TVHBS December 12, 2024 10: 49am PREOP December 15, 2024 12: 26pm Hysterectomy,TLH, Bilateral Salpingectom y December 27, 2024 7:21am Hysterectomy,TLH, Bilateral Salpingectom y December 27, 2024 8:20am Hysterectomy,TLH, Bilateral Salpingectom y December 27, 2024 5:29pm Hysterectomy,TLH, Bilateral Salpingectom y December 28, 2024 8:29am Hysterectomy,TLH, Bilateral Salpingectom y December 28, 2024 8:31am 2 wk TVHBS January 09, 2025 10: 57am 6 M FU January 26, 2025 2:04pm 6 wk TVHBS February 06, 2025 10:49 am Atherosclerosis of renal artery January 4:09pm Reason for Visit Admit Date Endometrial hyperplasia without atypia M arch 2024 10:49am Endometrial hyperplasia without atypia A pril 2024 8:20am History of total vaginal hysterectomy (T VH) December 27, 2024 8:20am Atherosclerotic vascular disease December 272024 8:20am Carotid artery disease December 27, 2024 8 :20am Dyslipidemia December 27, 2024 8:20 am History of CVA (cerebrovascular accident ) December 27, 2024 8:20am Hypertension December 27, 2024 8:20 am Renal artery stenosis December 27, 2024 8: 20am Endometrial hyperplasia without atypia A pril 2024 10:57am Aortic valve stenosis with insufficiency January 26, 2025 2:04pm Atherosclerotic vascular disease January 2:04pm Carotid artery disease January 26, 2025 2:0 4pm Diabetes January 26, 2025 2:04pm Dyslipidemia January 26, 2025 2:04pm History of CVA (cerebrovascular accident ) January 26, 2025 2:04pm Hypertension January 26, 2025 2:04pm Hypothyroidism January 26, 2025 2:04pm Renal artery stenosis January 26, 2025 2:04 pm Encounter for postoperative care January 10:49am Reason for Referral Specialty Diagnoses / Procedures Referred By Contac t Referred To Contact Diagnoses Uncontrolled type 2 diabetes mellitus with hyperglycemia (HCC) Kathryn Rivero BUFFER OPERATOR.ENGINEERING TEST SPECIALIST [address] [place] [address] Referral ID Status Reason Start Date Expiration Date Visits Re quested Visits Authorized [id number] Denied 1 1 Specialty Diagnoses / Procedures Referred By Contac t Referred To Contact Cardiology Diagnoses Uncontrolled type 2 diabetes mellitus with hyperglycemia (HCC) Nonrheumatic aortic valve stenosis Hyperlipidemia, mixed Procedures CONSULT TO CARDIOLOGY OFFICE/OUTPATIENT NEW HIGH MDM 60 MINUTES Preet Farrar, DO [address] [place] [address] Referral ID Status Reason Start Date Expiration Date Visits Requested Visits Authorized [id number] Authorized PCP Requested Referral 12/09/2023 12/08/2024 1 1 Specialty Diagnoses / Procedures Referred By Contac t Referred To Contact Diagnoses Uncontrolled type 2 diabetes mellitus with hyperglycemia (HCC) Vaginal yeast infection Jacqueline Candelario, BUFFER OPERATOR.ENGINEERING TEST SPECIALIST [address] [place] [address] Referral ID Status Reason Start Date Expiration Date V isits Requested Visits Authorized [id number] Authorized 01/27/2024 09/27/2024 1 1 Specialty Diagnoses / Procedures Referred By Contac t Referred To Contact Endocrinology Diagnoses Uncontrolled type 2 diabetes mellitus with hyperglycemia (HCC) Procedures CONSULT TO ENDOCRINOLOGY OFFICE/OUTPATIENT NEW HIGH MDM 60 MINUTES Preet Farrar, DO [address] [place] [address] Referral ID Status Reason Start Date Expiration Date Visits Requested Visits Authorized [id number] Authorized PCP Requested Referral 03/21/2024 03/21/2025 1 1 Specialty Diagnoses / Procedures Referred By Contac t Referred To Contact Gynecology Diagnoses LLQ pain Thickened endometrium Procedures CONSULT TO GYNECOLOGY OFFICE/OUTPATIENT NEW HIGH MDM 60 MINUTES PodlogarCatalina APRN.ENGINEERING TEST SPECIALIST [address] [place] [address] Referral ID Status Reason Start Date Expiration Date Visits Requested Visits Authorized [id number] Authorized PCP Requested Referral Auto-Generate d Referral [...] sprain Procedures URGENT CARE Self Nataly Ryan APRN.ENGINEERING TEST SPECIALIST [address] [place] [address] Referral ID Status Reason Start Date Expiration Date Visits Re quested Visits Authorized [id number] Closed 01/23/2022 09/27/2022 1 1 Reason Comments New Patient Fracture Specialty Diagnoses / Procedures Referred By Contac t Referred To Contact Podiatry / PODIATRY Diagnoses foot fracture Procedures PANCHITO NEW FRACTURE Nataly Ryan APRN.ENGINEERING TEST SPECIALIST [address] [place] [address] Steve Rodriguez [address] [place] [address] Referral ID Status Reason Start Date Expiration Date Visits Re quested Visits Authorized [id number] Closed 01/30/2022 09/27/2022 1 1 Reason Comments Blood Pressure Specialty Diagnoses / Procedures Referred By Contac t Referred To Contact Family Practice / FAMILY MEDICINE Diagnoses Elevated BP. UC f/u 01-23, left ankle fracture. Procedures 4C EST Self Kathryn Rivero APRN.ENGINEERING TEST SPECIALIST [address] [place] [address] Referral ID Status Reason Start Date Expiration Date Visits Re quested Visits Authorized [id number] Closed 01/31/2022 09/27/2022 1 1 Reason Comments Follow Up Specialty Diagnoses / Procedures Referred By Contwiliam t Referred To Contact Family Practice / FAMILY MEDICINE Diagnoses Follow up BP, Thyroid Procedures 4C EST Preet Farrar, DO [address] [place] [address] Preet Farrar, DO [address] [place] [address] Referral ID Status Reason Start Date Expiration Date Visits Re quested Visits Authorized [id number] Closed 02/19/2022 09/27/2022 1 1 Reason Onset [...] Date Comments Refill Request 03/03/2023 Reason Comments [place] thyroid PA Reason Comments go over blood sugars and diet Reason Comments medication issue Reason Onset Date Comments Refill Request 05/18/2023 Reason Comments Follow Up 3 months- DM Reason Comments b/s high yesterday and today This vonnien g b?s was 259, she states been nauseated and lft eye cloudy Reason Comments Hospital F/U Virus, pt recently h ad a fall due to dizziness, reports in scanned docs. Reason Comments Medication Problem Reason Comments Call from Dr. Stapleton, Neurologist Reason Onset Date Comments Population Health Navigation Outreach 07/29/2023 [facility] care gap Reason Comments Medication Question [...] Comments Transition Of Care Reason Comments Insulin [place] Reason Comments Patient Update Blood Sugar Readings Reason Comments Type 2 Diabetes Reason Comments Future Appointment Reason Onset Date Comments Refill Request 05/23/2024 Reason Comments ER F/U 05/22/2024 [facility] for le ft lower quadrant pain Reason Onset Date Comments Refill Request 06/15/2024 Reason Onset Date Comments Refill Request 06/17/2024 Reason Comments Faxed Labs Surgical Clearance Forms Reason Onset Date Comments Population Health Navigation Outreach 08/09/2024 [facility] Reason Comments type 2 diabetes Forgot log, fluctuat ing BS at this time Reason Onset Date Comments Refill Request 08/11/2024 Reason Onset Date Comments Refill Request 2024 Reason Comments Blood Pressure Orders lab work orders need ed. the orders from november is Reason Comments Medicare Wellness Exam Reason Onset Date Comments Refill Request 11/01/2024 Reason Comments type 2 Diabetes Reason Onset Date Comments Refill Request 11/29/2024 Reason Onset Date Comments Refill Request 12/01/2024 Reason Comments Pre-Op Exam hysterectomy Reason Comments Medication Question Reason Comments Patient Question Upcoming Surgery Reason Comments Prior Authorization Request Reason Comments High Blood Sugar Reason Comments F/U 3 Month Thyroid Reason Comments Patient Question re: insulin Reason Comments follow up for diabetes and naussea for 1 week Reason Onset Date Comments Refill Request 04/03/2025 Ordered Prescriptions (unrec ognized section and content) [...] section and content) DATE CREATED AUTHOR 09/18/2021 [facility] DATE CREATED AUTHOR AUTHOR'S ORGANIZ ATION 12/20/2023 [facility] ([place]) DATE CREATED AUTHOR AUTHOR'S ORGANIZ ATION 02/23/2025 [facility] DATE CREATED AUTHOR AUTHOR'S ORGANIZ ATION 04/11/2025 [facility] Source Comments (unrecognize d section and content) In the event this informatio n is protected by the Federal Confidentiality of Alcohol and Drug Abuse Patient Records regulations: The Federal rules restrict any use of the information to criminally investigate or prosecute any alcohol or drug abuse patient.[facility] HospitalIn the event this information is protected by the Federal Confidentiality of Alcohol and Drug Abuse Patient Records regulations: The Federal rules restrict any use of the information to criminally investigate or prosecute any alcohol or drug abuse patient.[facility] HospitalIn the event this information is protected by the Federal Confidentiality of Alcohol and Drug Abuse Patient Records regulations: The Federal rules restrict any use of the information to criminally investigate or prosecute any alcohol or drug abuse patient.[facility] HospitalIn the event this information is protected by the Federal Confidentiality of Alcohol and Drug Abuse Patient Records regulations: The Federal rules restrict any use of the information to criminally investigate or prosecute any alcohol or drug abuse patient.[facility] HospitalIn the event this information is protected by the Federal Confidentiality of Alcohol and Drug Abuse Patient Records regulations: The Federal rules restrict any use of the information to criminally investigate or prosecute any alcohol or drug abuse patient.[facility] HospitalIn the event this information is protected by the Federal Confidentiality of Alcohol and Drug Abuse Patient Records regulations: The Federal rules restrict any use of the information to criminally investigate or prosecute any alcohol or drug abuse patient.[facility] HospitalIn the event this information is protected by the Federal Confidentiality of Alcohol and Drug Abuse Patient Records regulations: The Federal rules restrict any use of the information to criminally investigate or prosecute any alcohol or drug abuse patient.[facility] HospitalIn the event this information is protected by the Federal Confidentiality of Alcohol and Drug Abuse Patient Records regulations: The Federal rules restrict any use of the information to criminally investigate or prosecute any alcohol or drug abuse patient.[facility] HospitalIn the event this information is protected by the Federal Confidentiality of Alcohol and Drug Abuse Patient Records regulations: The Federal rules restrict any use of the information to criminally investigate or prosecute any alcohol or drug abuse patient.[facility] HospitalIn the event this information is protected by the Federal Confidentiality of Alcohol and Drug Abuse Patient Records regulations: The Federal rules restrict any use of the information to criminally investigate or prosecute any alcohol or drug abuse patient.[facility] HospitalIn the event this information is protected by the Federal Confidentiality of Alcohol and Drug Abuse Patient Records regulations: The Federal rules restrict any use of the information to criminally investigate or prosecute any alcohol or drug abuse patient.[facility] HospitalIn the event this information is protected by the Federal Confidentiality of Alcohol and Drug Abuse Patient Records regulations: The Federal rules restrict any use of the information to criminally investigate or prosecute any alcohol or drug abuse patient.[facility] HospitalIn the event this information is protected by the Federal Confidentiality of Alcohol and Drug Abuse Patient Records regulations: The Federal rules restrict any use of the information to criminally investigate or prosecute any alcohol or drug abuse patient.[facility] HospitalIn the event this information is protected by the Federal Confidentiality of Alcohol and Drug Abuse Patient Records regulations: The Federal rules restrict any use of the information to criminally investigate or prosecute any alcohol or drug abuse patient.[facility] HospitalIn the event this information is protected by the Federal Confidentiality of Alcohol and Drug Abuse Patient Records regulations: The Federal rules restrict any use of the information to criminally investigate or prosecute any alcohol or drug abuse patient.[facility] HospitalIn the event this information is protected by the Federal Confidentiality of Alcohol and Drug Abuse Patient Records regulations: The Federal rules restrict any use of the information to criminally investigate or prosecute any alcohol or drug abuse patient.[facility] HospitalIn the event this information is protected by the Federal Confidentiality of Alcohol and Drug Abuse Patient Records regulations: The Federal rules restrict any use of the information to criminally investigate or prosecute any alcohol or drug abuse patient.[facility] HospitalIn the event this information is protected by the Federal Confidentiality of Alcohol and Drug Abuse Patient Records regulations: The Federal rules restrict any use of the information to criminally investigate or prosecute any alcohol or drug abuse patient.[facility] HospitalIn the event this information is protected by the Federal Confidentiality of Alcohol and Drug Abuse Patient Records regulations: The Federal rules restrict any use of the information to criminally investigate or prosecute any alcohol or drug abuse patient.[facility] HospitalIn the event this information is protected by the Federal Confidentiality of Alcohol and Drug Abuse Patient Records regulations: The Federal rules restrict any use of the information to criminally investigate or prosecute any alcohol or drug abuse patient.[facility] HospitalIn the event this information is protected by the Federal Confidentiality of Alcohol and Drug Abuse Patient Records regulations: The Federal rules restrict any use of the information to criminally investigate or prosecute any alcohol or drug abuse patient.[facility] HospitalIn the event this information is protected by the Federal Confidentiality of Alcohol and Drug Abuse Patient Records regulations: The Federal rules restrict any use of the information to criminally investigate or prosecute any alcohol or drug abuse patient.[facility] HospitalIn the event this information is protected by the Federal Confidentiality of Alcohol and Drug Abuse Patient Records regulations: The Federal rules restrict any use of the information to criminally investigate or prosecute any alcohol or drug abuse patient.[facility] HospitalIn the event this information is protected by the Federal Confidentiality of Alcohol and Drug Abuse Patient Records regulations: The Federal rules restrict any use of the information to criminally investigate or prosecute any alcohol or drug abuse patient.[facility] HospitalIn the event this information is protected by the Federal Confidentiality of Alcohol and Drug Abuse Patient Records regulations: The Federal rules restrict any use of the information to criminally investigate or prosecute any alcohol or drug abuse patient.[facility] HospitalIn the event this information is protected by the Federal Confidentiality of Alcohol and Drug Abuse Patient Records regulations: The Federal rules restrict any use of the information to criminally investigate or prosecute any alcohol or drug abuse patient.[facility] HospitalIn the event this information is protected by the Federal Confidentiality of Alcohol and Drug Abuse Patient Records regulations: The Federal rules restrict any use of the information to criminally investigate or prosecute any alcohol or drug abuse patient.[facility] HospitalIn the event this information is protected by the Federal Confidentiality of Alcohol and Drug Abuse Patient Records regulations: The Federal rules restrict any use of the information to criminally investigate or prosecute any alcohol or drug abuse patient.[facility] HospitalIn the event this information is protected by the Federal Confidentiality of Alcohol and Drug Abuse Patient Records regulations: The Federal rules restrict any use of the information to criminally investigate or prosecute any alcohol or drug abuse patient.[facility] HospitalIn the event this information is protected by the Federal Confidentiality of Alcohol and Drug Abuse Patient Records regulations: The Federal rules restrict any use of the information to criminally investigate or prosecute any alcohol or drug abuse patient.[facility] HospitalIn the event this information is protected by the Federal Confidentiality of Alcohol and Drug Abuse Patient Records regulations: The Federal rules restrict any use of the information to criminally investigate or prosecute any alcohol or drug abuse patient.[facility] HospitalIn the event this information is protected by the Federal Confidentiality of Alcohol and Drug Abuse Patient Records regulations: The Federal rules restrict any use of the information to criminally investigate or prosecute any alcohol or drug abuse patient.[facility] HospitalIn the event this information is protected by the Federal Confidentiality of Alcohol and Drug Abuse Patient Records regulations: The Federal rules restrict any use of the information to criminally investigate or prosecute any alcohol or drug abuse patient.[facility] HospitalIn the event this information is protected by the Federal Confidentiality of Alcohol and Drug Abuse Patient Records regulations: The Federal rules restrict any use of the information to criminally investigate or prosecute any alcohol or drug abuse patient.[facility] HospitalIn the event this information is protected by the Federal Confidentiality of Alcohol and Drug Abuse Patient Records regulations: The Federal rules restrict any use of the information to criminally investigate or prosecute any alcohol or drug abuse patient.[facility] HospitalIn the event this information is protected by the Federal Confidentiality of Alcohol and Drug Abuse Patient Records regulations: The Federal rules restrict any use of the information to criminally investigate or prosecute any alcohol or drug abuse patient.[facility] HospitalIn the event this information is protected by the Federal Confidentiality of Alcohol and Drug Abuse Patient Records regulations: The Federal rules restrict any use of the information to criminally investigate or prosecute any alcohol or drug abuse patient.[facility] HospitalIn the event this information is protected by the Federal Confidentiality of Alcohol and Drug Abuse Patient Records regulations: The Federal rules restrict any use of the information to criminally investigate or prosecute any alcohol or drug abuse patient.[facility] HospitalIn the event this information is protected by the Federal Confidentiality of Alcohol and Drug Abuse Patient Records regulations: The Federal rules restrict any use of the information to criminally investigate or prosecute any alcohol or drug abuse patient.[facility] HospitalIn the event this information is protected by the Federal Confidentiality of Alcohol and Drug Abuse Patient Records regulations: The Federal rules restrict any use of the information to criminally investigate or prosecute any alcohol or drug abuse patient.[facility] HospitalIn the event this information is protected by the Federal Confidentiality of Alcohol and Drug Abuse Patient Records regulations: The Federal rules restrict any use of the information to criminally investigate or prosecute any alcohol or drug abuse patient.[facility] HospitalIn the event this information is protected by the Federal Confidentiality of Alcohol and Drug Abuse Patient Records regulations: The Federal rules restrict any use of the information to criminally investigate or prosecute any alcohol or drug abuse patient.[facility] HospitalIn the event this information is protected by the Federal Confidentiality of Alcohol and Drug Abuse Patient Records regulations: The Federal rules restrict any use of the information to criminally investigate or prosecute any alcohol or drug abuse patient.[facility] HospitalIn the event this information is protected by the Federal Confidentiality of Alcohol and Drug Abuse Patient Records regulations: The Federal rules restrict any use of the information to criminally investigate or prosecute any alcohol or drug abuse patient.[facility] HospitalIn the event this information is protected by the Federal Confidentiality of Alcohol and Drug Abuse Patient Records regulations: The Federal rules restrict any use of the information to criminally investigate or prosecute any alcohol or drug abuse patient.[facility] HospitalIn the event this information is protected by the Federal Confidentiality of Alcohol and Drug Abuse Patient Records regulations: The Federal rules restrict any use of the information to criminally investigate or prosecute any alcohol or drug abuse patient.[facility] HospitalIn the event this information is protected by the Federal Confidentiality of Alcohol and Drug Abuse Patient Records regulations: The Federal rules restrict any use of the information to criminally investigate or prosecute any alcohol or drug abuse patient.[facility] HospitalIn the event this information is protected by the Federal Confidentiality of Alcohol and Drug Abuse Patient Records regulations: The Federal rules restrict any use of the information to criminally investigate or prosecute any alcohol or drug abuse patient.[facility] HospitalIn the event this information is protected by the Federal Confidentiality of Alcohol and Drug Abuse Patient Records regulations: The Federal rules restrict any use of the information to criminally investigate or prosecute any alcohol or drug abuse patient.[facility] HospitalIn the event this information is protected by the Federal Confidentiality of Alcohol and Drug Abuse Patient Records regulations: The Federal rules restrict any use of the information to criminally investigate or prosecute any alcohol or drug abuse patient.[facility] HospitalIn the event this information is protected by the Federal Confidentiality of Alcohol and Drug Abuse Patient Records regulations: The Federal rules restrict any use of the information to criminally investigate or prosecute any alcohol or drug abuse patient.[facility] HospitalIn the event this information is protected by the Federal Confidentiality of Alcohol and Drug Abuse Patient Records regulations: The Federal rules restrict any use of the information to criminally investigate or prosecute any alcohol or drug abuse patient.[facility] HospitalIn the event this information is protected by the Federal Confidentiality of Alcohol and Drug Abuse Patient Records regulations: The Federal rules restrict any use of the information to criminally investigate or prosecute any alcohol or drug abuse patient.[facility] HospitalIn the event this information is protected by the Federal Confidentiality of Alcohol and Drug Abuse Patient Records regulations: The Federal rules restrict any use of the information to criminally investigate or prosecute any alcohol or drug abuse patient.[facility] HospitalIn the event this information is protected by the Federal Confidentiality of Alcohol and Drug Abuse Patient Records regulations: The Federal rules restrict any use of the information to criminally investigate or prosecute any alcohol or drug abuse patient.[facility] HospitalIn the event this information is protected by the Federal Confidentiality of Alcohol and Drug Abuse Patient Records regulations: The Federal rules restrict any use of the information to criminally investigate or prosecute any alcohol or drug abuse patient.[facility] HospitalIn the event this information is protected by the Federal Confidentiality of Alcohol and Drug Abuse Patient Records regulations: The Federal rules restrict any use of the information to criminally investigate or prosecute any alcohol or drug abuse patient.[facility] HospitalIn the event this information is protected by the Federal Confidentiality of Alcohol and Drug Abuse Patient Records regulations: The Federal rules restrict any use of the information to criminally investigate or prosecute any alcohol or drug abuse patient.[facility] HospitalIn the event this information is protected by the Federal Confidentiality of Alcohol and Drug Abuse Patient Records regulations: The Federal rules restrict any use of the information to criminally investigate or prosecute any alcohol or drug abuse patient.[facility] HospitalIn the event this information is protected by the Federal Confidentiality of Alcohol and Drug Abuse Patient Records regulations: The Federal rules restrict any use of the information to criminally investigate or prosecute any alcohol or drug abuse patient.[facility] HospitalIn the event this information is protected by the Federal Confidentiality of Alcohol and Drug Abuse Patient Records regulations: The Federal rules restrict any use of the information to criminally investigate or prosecute any alcohol or drug abuse patient.[facility] HospitalIn the event this information is protected by the Federal Confidentiality of Alcohol and Drug Abuse Patient Records regulations: The Federal rules restrict any use of the information to criminally investigate or prosecute any alcohol or drug abuse patient.[facility] HospitalIn the event this information is protected by the Federal Confidentiality of Alcohol and Drug Abuse Patient Records regulations: The Federal rules restrict any use of the information to criminally investigate or prosecute any alcohol or drug abuse patient.[facility] HospitalIn the event this information is protected by the Federal Confidentiality of Alcohol and Drug Abuse Patient Records regulations: The Federal rules restrict any use of the information to criminally investigate or prosecute any alcohol or drug abuse patient.[facility] HospitalIn the event this information is protected by the Federal Confidentiality of Alcohol and Drug Abuse Patient Records regulations: The Federal rules restrict any use of the information to criminally investigate or prosecute any alcohol or drug abuse patient.[facility] HospitalIn the event this information is protected by the Federal Confidentiality of Alcohol and Drug Abuse Patient Records regulations: The Federal rules restrict any use of the information to criminally investigate or prosecute any alcohol or drug abuse patient.[facility] HospitalIn the event this information is protected by the Federal Confidentiality of Alcohol and Drug Abuse Patient Records regulations: The Federal rules restrict any use of the information to criminally investigate or prosecute any alcohol or drug abuse patient.[facility] HospitalIn the event this information is protected by the Federal Confidentiality of Alcohol and Drug Abuse Patient Records regulations: The Federal rules restrict any use of the information to criminally investigate or prosecute any alcohol or drug abuse patient.[facility] HospitalIn the event this information is protected by the Federal Confidentiality of Alcohol and Drug Abuse Patient Records regulations: The Federal rules restrict any use of the information to criminally investigate or prosecute any alcohol or drug abuse patient.[facility] HospitalIn the event this information is protected by the Federal Confidentiality of Alcohol and Drug Abuse Patient Records regulations: The Federal rules restrict any use of the information to criminally investigate or prosecute any alcohol or drug abuse patient.[facility] HospitalIn the event this information is protected by the Federal Confidentiality of Alcohol and Drug Abuse Patient Records regulations: The Federal rules restrict any use of the information to criminally investigate or prosecute any alcohol or drug abuse patient.[facility] HospitalIn the event this information is protected by the Federal Confidentiality of Alcohol and Drug Abuse Patient Records regulations: The Federal rules restrict any use of the information to criminally investigate or prosecute any alcohol or drug abuse patient.[facility] HospitalIn the event this information is protected by the Federal Confidentiality of Alcohol and Drug Abuse Patient Records regulations: The Federal rules restrict any use of the information to criminally investigate or prosecute any alcohol or drug abuse patient.[facility] HospitalIn the event this information is protected by the Federal Confidentiality of Alcohol and Drug Abuse Patient Records regulations: The Federal rules restrict any use of the information to criminally investigate or prosecute any alcohol or drug abuse patient.[facility] HospitalIn the event this information is protected by the Federal Confidentiality of Alcohol and Drug Abuse Patient Records regulations: The Federal rules restrict any use of the information to criminally investigate or prosecute any alcohol or drug abuse patient.[facility] HospitalIn the event this information is protected by the Federal Confidentiality of Alcohol and Drug Abuse Patient Records regulations: The Federal rules restrict any use of the information to criminally investigate or prosecute any alcohol or drug abuse patient.[facility] HospitalIn the event this information is protected by the Federal Confidentiality of Alcohol and Drug Abuse Patient Records regulations: The Federal rules restrict any use of the information to criminally investigate or prosecute any alcohol or drug abuse patient.[facility] HospitalIn the event this information is protected by the Federal Confidentiality of Alcohol and Drug Abuse Patient Records regulations: The Federal rules restrict any use of the information to criminally investigate or prosecute any alcohol or drug abuse patient.[facility] HospitalIn the event this information is protected by the Federal Confidentiality of Alcohol and Drug Abuse Patient Records regulations: The Federal rules restrict any use of the information to criminally investigate or prosecute any alcohol or drug abuse patient.[facility] HospitalIn the event this information is protected by the Federal Confidentiality of Alcohol and Drug Abuse Patient Records regulations: The Federal rules restrict any use of the information to criminally investigate or prosecute any alcohol or drug abuse patient.[facility] HospitalIn the event this information is protected by the Federal Confidentiality of Alcohol and Drug Abuse Patient Records regulations: The Federal rules restrict any use of the information to criminally investigate or prosecute any alcohol or drug abuse patient.[facility] HospitalIn the event this information is protected by the Federal Confidentiality of Alcohol and Drug Abuse Patient Records regulations: The Federal rules restrict any use of the information to criminally investigate or prosecute any alcohol or drug abuse patient.[facility] HospitalIn the event this information is protected by the Federal Confidentiality of Alcohol and Drug Abuse Patient Records regulations: The Federal rules restrict any use of the information to criminally investigate or prosecute any alcohol or drug abuse patient.[facility] HospitalIn the event this information is protected by the Federal Confidentiality of Alcohol and Drug Abuse Patient Records regulations: The Federal rules restrict any use of the information to criminally investigate or prosecute any alcohol or drug abuse patient.[facility] HospitalIn the event this information is protected by the Federal Confidentiality of Alcohol and Drug Abuse Patient Records regulations: The Federal rules restrict any use of the information to criminally investigate or prosecute any alcohol or drug abuse patient.[facility] HospitalIn the event this information is protected by the Federal Confidentiality of Alcohol and Drug Abuse Patient Records regulations: The Federal rules restrict any use of the information to criminally investigate or prosecute any alcohol or drug abuse patient.[facility] HospitalIn the event this information is protected by the Federal Confidentiality of Alcohol and Drug Abuse Patient Records regulations: The Federal rules restrict any use of the information to criminally investigate or prosecute any alcohol or drug abuse patient.[facility] HospitalIn the event this information is protected by the Federal Confidentiality of Alcohol and Drug Abuse Patient Records regulations: The Federal rules restrict any use of the information to criminally investigate or prosecute any alcohol or drug abuse patient.[facility] HospitalIn the event this information is protected by the Federal Confidentiality of Alcohol and Drug Abuse Patient Records regulations: The Federal rules restrict any use of the information to criminally investigate or prosecute any alcohol or drug abuse patient.[facility] HospitalIn the event this information is protected by the Federal Confidentiality of Alcohol and Drug Abuse Patient Records regulations: The Federal rules restrict any use of the information to criminally investigate or prosecute any alcohol or drug abuse patient.[facility] HospitalIn the event this information is protected by the Federal Confidentiality of Alcohol and Drug Abuse Patient Records regulations: The Federal rules restrict any use of the information to criminally investigate or prosecute any alcohol or drug abuse patient.[facility] HospitalIn the event this information is protected by the Federal Confidentiality of Alcohol and Drug Abuse Patient Records regulations: The Federal rules restrict any use of the information to criminally investigate or prosecute any alcohol or drug abuse patient.[facility] HospitalIn the event this information is protected by the Federal Confidentiality of Alcohol and Drug Abuse Patient Records regulations: The Federal rules restrict any use of the information to criminally investigate or prosecute any alcohol or drug abuse patient.[facility] HospitalIn the event this information is protected by the Federal Confidentiality of Alcohol and Drug Abuse Patient Records regulations: The Federal rules restrict any use of the information to criminally investigate or prosecute any alcohol or drug abuse patient.[facility] HospitalIn the event this information is protected by the Federal Confidentiality of Alcohol and Drug Abuse Patient Records regulations: The Federal rules restrict any use of the information to criminally investigate or prosecute any alcohol or drug abuse patient.[facility] HospitalIn the event this information is protected by the Federal Confidentiality of Alcohol and Drug Abuse Patient Records regulations: The Federal rules restrict any use of the information to criminally investigate or prosecute any alcohol or drug abuse patient.[facility] HospitalIn the event this information is protected by the Federal Confidentiality of Alcohol and Drug Abuse Patient Records regulations: The Federal rules restrict any use of the information to criminally investigate or prosecute any alcohol or drug abuse patient.[facility] HospitalIn the event this information is protected by the Federal Confidentiality of Alcohol and Drug Abuse Patient Records regulations: The Federal rules restrict any use of the information to criminally investigate or prosecute any alcohol or drug abuse patient.[facility] HospitalIn the event this information is protected by the Federal Confidentiality of Alcohol and Drug Abuse Patient Records regulations: The Federal rules restrict any use of the information to criminally investigate or prosecute any alcohol or drug abuse patient.[facility] HospitalIn the event this information is protected by the Federal Confidentiality of Alcohol and Drug Abuse Patient Records regulations: The Federal rules restrict any use of the information to criminally investigate or prosecute any alcohol or drug abuse patient.[facility] HospitalIn the event this information is protected by the Federal Confidentiality of Alcohol and Drug Abuse Patient Records regulations: The Federal rules restrict any use of the information to criminally investigate or prosecute any alcohol or drug abuse patient.[facility] HospitalIn the event this information is protected by the Federal Confidentiality of Alcohol and Drug Abuse Patient Records regulations: The Federal rules restrict any use of the information to criminally investigate or prosecute any alcohol or drug abuse patient.[facility] HospitalIn the event this information is protected by the Federal Confidentiality of Alcohol and Drug Abuse Patient Records regulations: The Federal rules restrict any use of the information to criminally investigate or prosecute any alcohol or drug abuse patient.[facility] HospitalIn the event this information is protected by the Federal Confidentiality of Alcohol and Drug Abuse Patient Records regulations: The Federal rules restrict any use of the information to criminally investigate or prosecute any alcohol or drug abuse patient.[facility] HospitalIn the event this information is protected by the Federal Confidentiality of Alcohol and Drug Abuse Patient Records regulations: The Federal rules restrict any use of the information to criminally investigate or prosecute any alcohol or drug abuse patient.[facility] HospitalIn the event this information is protected by the Federal Confidentiality of Alcohol and Drug Abuse Patient Records regulations: The Federal rules restrict any use of the information to criminally investigate or prosecute any alcohol or drug abuse patient.[facility] Care Teams (unrecognized sec tion and content) 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 Start Date End Date Preet Farrar, [address] [place] [address] PCP - General Family Practice 11/16/13 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 Start Date End Date Preet Farrar, DO [address] [place] [address] PCP - General Family Practice 11/16/13 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 Start Date End Date Preet Farrar, DO [address] [place] [address] PCP - General Family Practice 11/16/13 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 Start Date End Date Preet Farrar, DO [address] [place] [address] PCP - General Family Practice 11/16/13 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 Start Date End Date Preet Farrar, DO [address] [place] [address] PCP - General Family Practice 11/16/13 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 Start Date End Date Preet Farrar, DO [address] [place] [address] PCP - General Family Practice 11/16/13 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 Start Date End Date Preet Farrar, DO [address] [place] [address] PCP - General Family Practice 11/16/13 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 Start Date End Date Preet Farrar, DO [address] [place] [address] PCP - General Family Practice 11/16/13 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 Start Date End Date Preet Farrar, DO [address] [place] [address] PCP - General Family Practice 11/16/13 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 Start Date End Date Preet Farrar, DO [address] [place] [address] PCP - General Family Practice 11/16/13 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 Start Date End Date Preet Farrar, DO [address] [place] [address] PCP - General Family Practice 11/16/13 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 Start Date End Date Preet Farrar, DO [address] [place] [address] PCP - General Family Practice 11/16/13 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 Start Date End Date Preet Farrar, DO [address] [place] [address] PCP - General Family Practice 11/16/13 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 Start Date End Date Preet Farrar, DO [address] [place] [address] PCP - General Family Practice 11/16/13 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 Start Date End Date Preet Farrar, DO [address] [place] [address] PCP - General Family Practice 11/16/13 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 Start Date End Date Preet Farrar, DO [address] [place] [address] PCP - General Family Medicine 11/16/13 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 Start Date End Date Preet Farrar, DO [address] [place] [address] PCP - General Family Medicine 11/16/13 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 Start Date End Date Preet Farrar, DO [address] [place] [address] PCP - General Family Medicine 11/16/13 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 Start Date End Date Preet Farrar, DO [address] [place] [address] PCP - General Family Medicine 11/16/13 Team Status: Active Member Role Status Dates Dr. Preet Farrar DO Family Provider Active Dr. Preet Farrar DO Primary Care Provider Active Team Status: Active Member Role Status Dates Dr. Preet Farrar DO Primary Care Provider Active Dr. Mick Chanel MD Emergency Provider Active Dr. Hermes Mirza DO Admit Provider, At tending Provider, Other Provider Active Team Status: Active Member Role Status Dates Dr. Preet Farrar DO Primary Care Provider Active Dr. Jamel Gray MD Attending Provider Active Team Status: Active Member Role Status Dates Dr. Preet Farrar DO Primary Care Provider Active Dr. Mick Chanel MD Emergency Provider Active Dr. Hermes Mirza DO Admit Provider, Other Provider A ctive Dr. Carmen Dallas MD Attending Provider, Other Prov ider Active Dr. Hermes Block MD Other Provider Active Team Status: Inactive Member Role Status Dates Dr. Preet Farrar DO Primary Care Provider Active Dr. Mick Chanel MD Emergency Provider Active Dr. Hermes Mirza DO Admit Provider, Other Provider A ctive Dr. Carmen Dallas MD Attending Provider Active Dr. Hermes Block MD Other Provider Active 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 Start Date End Date Preet Farrar DO [address] [place] [address] PCP - General Family Medicine 11/16/13 Team Status: Inactive Member Role Status Dates Dr. Preet Farrar DO Primary Care Provider, Attend ing Provider Active Dr. Carmen Dallas MD Referring Provider Active 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 Start Date End Date Preet Farrar DO [address] [place] [address] PCP - General Family Medicine 11/16/13 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 Start Date End Date Preet Farrar DO [address] [place] [address] PCP - General Family Medicine 11/16/13 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 Start Date End Date Preet Farrar DO [address] [place] [address] PCP - General Family Medicine 11/16/13 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 Start Date End Date Preet Farrar DO [address] [place] [address] PCP - General Family Medicine 11/16/13 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 Start Date End Date Preet Farrar DO [address] [place] [address] PCP - General Family Medicine 11/16/13 Team Status: Inactive Member Role Status Dates Dr. Preet Farrar DO Primary Care Provider, Referr ing Provider Active Dr. Kenton Stapleton MD Attending Provider Active Team Status: Inactive Member Role Status Dates Dr. Preet Farrar DO Primary Care Provider Active Dr. Kenton Stapleton MD Attending Provider, Referring Provider Active Team Status: Active Member Role Status Dates Dr. Preet Farrar DO Primary Care Provider Active Dr. Kenton Stapleton MD Attending Provider, Referring Provider Active 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 Start Date End Date Preet Farrar DO [address] [place] [address] PCP - General Family Medicine 11/16/13 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 Start Date End Date Preet Farrar DO [address] [place] [address] PCP - General Family Medicine 11/16/13 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 Start Date End Date Preet Farrar DO [address] [place] [address] PCP - General Family Medicine 11/16/13 Team Status: Active Member Role Status Dates Dr. Preet Farrar DO Primary Care Provider Active Dr. Julien Reyna MD Attending Provider Active Dr. Kenton Stapleton MD Referring Provider Active Team Status: Inactive Member Role Status Dates Dr. Preet Farrar DO Primary Care Provider Active Dr. Sean Bradley MD Attending Provider, Referring Provider Active 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 Start Date End Date Preet Farrar DO [address] [place] [address] PCP - General Family Medicine 11/16/13 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 Start Date End Date Preet Farrar DO [address] [place] [address] PCP - General Family Medicine 11/16/13 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 Start Date End Date Preet Farrar DO [address] [place] [address] PCP - General Family Medicine 11/16/13 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 Start Date End Date Preet Farrar DO [address] [place] [address] PCP - General Family Medicine 11/16/13 Team Status: Active Member Role Status Dates Dr. Preet Farrar DO Primary Care Provider Active Dr. Иван Valencia , DO Emergency Provider Active Dr. Halley Hodges MD Admit Provider, Other Provider Active Dr. Abisai Fuentes , Attending Provider, Other Pro vider Active Team Status: Inactive Member Role Status Dates Dr. Preet Farrar DO Primary Care Provider Active Dr. Иван Valencia , DO Emergency Provider Active Dr. Halley Hodges MD Admit Provider, Other Provider Active Dr. Abisai Fuentes , DO Attending Provider Active 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 Start Date End Date Preet Farrar DO [address] [place] [address] PCP - General Family Medicine 11/16/13 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 Start Date End Date Preet Farrar, [address] [place] [address] PCP - General Family Medicine 11/16/13 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 Start Date End Date Preet Farrar DO [address] [place] [address] PCP - General Family Medicine 11/16/13 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 Start Date End Date Preet Farrar, [address] [place] [address] PCP - General Family Medicine 11/16/13 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 Start Date End Date Preet Farrar DO [address] [place] [address] PCP - General Family Medicine 11/16/13 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 Start Date End Date Preet Farrar, [address] [place] [address] PCP - General Family Medicine 11/16/13 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 Start Date End Date Preet Farrar, [address] [place] [address] PCP - General Family Medicine 11/16/13 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 Start Date End Date Preet Farrar DO [address] [place] [address] PCP - General Family Medicine 11/16/13 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 Start Date End Date Preet Farrar, [address] [place] [address] PCP - General Family Medicine 11/16/13 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 Start Date End Date Preet Farrar, [address] [place] [address] PCP - General Family Medicine 11/16/13 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 Start Date End Date Preet Farrar, [address] [place] [address] PCP - General Family Medicine 11/16/13 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 Start Date End Date Preet Farrar DO [address] [place] [address] PCP - General Family Medicine 11/16/13 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 Start Date End Date Preet Farrar DO [address] [place] [address] PCP - General Family Medicine 11/16/13 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 Start Date End Date Preet Farrar DO [address] [place] [address] PCP - General Family Medicine 11/16/13 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 Start Date End Date Preet Farrar DO [address] [place] [address] PCP - General Family Medicine 11/16/13 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 Start Date End Date Preet Farrar DO [address] [place] [address] PCP - General Family Medicine 11/16/13 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 Start Date End Date Preet Farrar DO [address] [place] [address] PCP - General Family Medicine 11/16/13 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 Start Date End Date Preet Farrar DO [address] [place] [address] PCP - General Family Medicine 11/16/13 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 Start Date End Date Preet Farrar DO [address] [place] [address] PCP - General Family Medicine 11/16/13 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 Start Date End Date Preet Farrar DO [address] [place] [address] PCP - General Family Medicine 11/16/13 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 Start Date End Date Preet Farrar DO [address] [place] [address] PCP - General Family Medicine 11/16/13 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 Start Date End Date Preet Farrar DO [address] [place] [address] PCP - General Family Medicine 11/16/13 Jacqueline Candelario, BUFFER OPERATOR.ENGINEERING TEST SPECIALIST [address] [place] [address] Retail Leasing Agent Family Medicine 09/04/24 Kathryn Rivero, BUFFER OPERATOR.ENGINEERING TEST SPECIALIST [address] [place] [address] Retail Leasing Agent Family Medicine 09/04/24 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 Start Date End Date Preet Farrar DO [address] [place] [address] PCP - General Family Medicine 11/16/13 Jacqueline Candelario, BUFFER OPERATOR.ENGINEERING TEST SPECIALIST [address] [place] [address] Retail Leasing Agent Family Medicine 09/04/24 Kathryn Rivero, BUFFER OPERATOR.ENGINEERING TEST SPECIALIST [address] [place] [address] Retail Leasing Agent Family Medicine 09/04/24 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 Start Date End Date Preet Farrar DO [address] [place] [address] PCP - General Family Medicine 11/16/13 Jacqueline Candelario, BUFFER OPERATOR.ENGINEERING TEST SPECIALIST [address] [place] [address] Retail Leasing Agent Family Medicine 09/04/24 Kathryn Rivero, BUFFER OPERATOR.ENGINEERING TEST SPECIALIST [address] [place] [address] [facility] 09/04/24 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 Start Date End Date Preet Farrar DO [address] [place] [address] PCP - General Family Medicine 11/16/13 Jacqueline Candelario, BUFFER OPERATOR.ENGINEERING TEST SPECIALIST [address] [place] [address] Retail Leasing Agent Family Medicine 09/04/24 Kathryn Rivero, BUFFER OPERATOR.ENGINEERING TEST SPECIALIST [address] [place] [address] Retail Leasing Agent Family Medicine 09/04/24 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 Start Date End Date Preet Farrar DO [address] [place] [address] PCP - General Family Medicine 11/16/13 Jacqueline Candelario, BUFFER OPERATOR.ENGINEERING TEST SPECIALIST [address] [facility] [place] [address] Retail Leasing [facility] 09/04/24 MartirKathryn, BUFFER OPERATOR.ENGINEERING TEST SPECIALIST [address] [facility] [place] [address] [facility] 09/04/24 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 Start Date End Date Preet Farrar DO [address] [facility] [place] [address] PCP - General Family Medicine 11/16/13 Jacqueline Candelario, BUFFER OPERATOR.ENGINEERING TEST SPECIALIST [address] [place] [address] Retail [facility] 09/04/24 MartirKathryn, BUFFER OPERATOR.ENGINEERING TEST SPECIALIST [address] [place] [address] [facility] 09/04/24 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 Start Date End Date Preet Farrar DO [address] [facility] [place] [address] PCP - General Family Medicine 11/16/13 Jacqueline Candelario, BUFFER OPERATOR.ENGINEERING TEST SPECIALIST [address] [facility] [place] [address] Retail Le[facility] 09/04/24 Kathryn Rivero, BUFFER OPERATOR.ENGINEERING TEST SPECIALIST [address] [place] [address] Retail Leasing Agent Family [facility] 09/04/24 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 Start Date End Date Preet Farrar DO [address] [place] [address] PCP - General Family Medicine 11/16/13 Jacqueline Candelario, BUFFER OPERATOR.ENGINEERING TEST SPECIALIST [address] [facility] [place] [address] Retail Leasing Agent Family Medicine 09/04/24 Kathryn Rivero, BUFFER OPERATOR.ENGINEERING TEST SPECIALIST [address] [facility] [address] Retail Le[facility] 09/04/24 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 Start Date End Date Preet Farrar DO [address] [place] [address] PCP - General Family Medicine 11/16/13 Jacqueline Candelario, BUFFER OPERATOR.ENGINEERING TEST SPECIALIST [address] [place] [address] Retail Leasing Agent Family Medicine 09/04/24 Kathryn Rivero, BUFFER OPERATOR.ENGINEERING TEST SPECIALIST [address] [facility] [place] [address] Retail Leasing Agent Family Medicine 09/04/24 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 Start Date End Date Preet Farrar DO [address] [facility] [place] [address] PCP - General Family Medicine 11/16/13 Kathryn Rivero, BUFFER OPERATOR.ENGINEERING TEST SPECIALIST [address] [place] [address] Retail Leasing Agent Family [facility] 09/04/24 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 Start Date End Date Preet Farrar DO [address] [place] [address] PCP - General Family Medicine 11/16/13 Kathryn Rivero APRN.ENGINEERING TEST SPECIALIST [address] [place] [address] Retail Leasing Agent [facility] 09/04/24 Team Status: Active Member Role Status Dates Dr. Preet Farrar DO Primary Care Provider Active Team Status: Inactive Member Role Status Dates Dr. Preet Farrar DO Primary Care Provider Active Start: September 06, 2024 End: September 06, 2024 Dr. Julien Reyna MD Attending Provider Active Start: September 06, 2024 End: September 06, 2024 Dr. Julien Reyna MD Referring Provider Active Start: September 06, 2024 End: September 06, 2024 Team Status: Active Member Role Status Dates Dr. Preet Farrar DO Primary Care Provider Active Start: September 06, 2024 Dr. Hermes Block MD Attending Provider Active S tart: September 06, 2024 Dr. Julien Reyna MD Referring Provider Active Start: September 06, 2024 Team Status: Inactive Member Role Status Dates Dr. Preet Farrar DO Primary Care Provider Active Start: September 13, 2024 End: September 13, 2024 Dr. Preet Farrar DO Referring Provider Active Start: September 13, 2024 End: September 13, 2024 Dr. Anushka Hall MD Attending Provider Active Start: September 13, 2024 End: September 13, 2024 Team Status: Inactive Member Role Status Dates Dr. Preet Farrar DO Primary Care Provider Active Start: October 10, 2024 End: October 10, 2024 Dr. Julien Reyna MD Attending Provider Active Start: October 10, 2024 End: October 10, 2024 Dr. Julien Reyna MD Referring Provider Active Start: October 10, 2024 End: October 10, 2024 Team Status: Active Member Role Status Dates Dr. Preet Farrar DO Primary Care Provider Active Start: October 10, 2024 Dr. Julien Reyna MD Attending Provider Active Start: October 10, 2024 Dr. Julien Reyna MD Referring Provider Active Start: October 10, 2024 Dr. Julien Reyna MD Other Provider Active Star t: October 10, 2024 Team Status: Inactive Member Role Status Dates Dr. Preet Farrar DO Primary Care Provider Active Start: December 12, 2024 End: December 12, 2024 Dr. Preet Farrar DO Referring Provider Active Start: December 12, 2024 End: December 12, 2024 Dr. Anushka Hall MD Attending Provider Active Start: December 12, 2024 End: December 12, 2024 Team Status: Active Member Role Status Dates Dr. Preet Farrar DO Primary Care Provider Active Start: December 15, 2024 End: December 15, 2024 Dr. Jamel Gray MD Attending Provider Active S tart: December 15, 2024 End: December 15, 2024 Dr. Anushka Hall MD Referring Provider Active Start: December 15, 2024 End: December 15, 2024 Team Status: Active Member Role Status Dates Dr. Preet Farrar DO Primary Care Provider Active Start: December 27, 2024 Dr. Anushka Hall MD Attending Provider Active Start: December 27, 2024 Dr. Anushka Hall MD Referring Provider Active Start: December 27, 2024 Dr. Anushka Hall MD Other Provider Active Start: December 27, 2024 Team Status: Inactive Member Role Status Dates Dr. Preet Farrar DO Primary Care Provider Active Start: December 27, 2024 End: December 28, 2024 Dr. Anushka Hall MD Admit Provider Active Start: December 27, 2024 End: December 28, 2024 Dr. Anushka Hall MD Attending Provider Active Start: December 27, 2024 End: December 28, 2024 Dr. Anushka Hall MD Referring Provider Active Start: December 27, 2024 End: December 28, 2024 Dr. Reji Cline DO Other Provider Active Start: December 27, 2024 End: December 28, 2024 Dr. Douglas Ron MD Other Provider Active Start: December 27, 2024 End: December 28, 2024 Dr. Steven Holman MD Other Provider Active Sta rt: December 27, 2024 End: December 28, 2024 Team Status: Active Member Role Status Dates Dr. Preet Farrar DO Primary Care Provider Active Start: December 27, 2024 Dr. Anushka Hall MD Admit Provider Active Start: December 27, 2024 Dr. Anushka Hall MD Referring Provider Active Start: December 27, 2024 Dr. Anushka Hall MD Other Provider Active Start: December 27, 2024 Dr. Reji Cline DO Other Provider Active Start: December 27, 2024 Dr. Douglas Ron MD Other Provider Active Start: December 27, 2024 Dr. Carmen Dallas MD Attending Provider Active Start: December 27, 2024 Team Status: Active Member Role Status Dates Dr. Preet Farrar DO Primary Care Provider Active Start: December 28, 2024 Dr. Anushka Hall MD Admit Provider Active Start: December 28, 2024 Dr. Anushka Hall MD Attending Provider Active Start: December 28, 2024 Dr. Anushka Hall MD Referring Provider Active Start: December 28, 2024 Dr. Anushka Hall MD Other Provider Active Start: December 28, 2024 Dr. Reji Cline DO Other Provider Active Start: December 28, 2024 Dr. Douglas Ron MD Other Provider Active Start: December 28, 2024 Dr. Steven Holman MD Other Provider Active Sta rt: December 28, 2024 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 Start Date End Date Preet Farrar DO [address] [place], [place] [id number] PCP - General Family Medicine 11/16/13 Kathryn Rivero APRN.ENGINEERING TEST SPECIALIST [address] [place] [address] Retail Leasing Agent Family Medicine 09/04/24 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 Start Date End Date Preet Farrar DO [address] [place] [address] PCP - General Family [facility] 11/16/13 [facility] Hospital[facility]hel[facility]ath[facility], BUFFER OPERATOR.ENGINEERING TEST SPECIALIST [address] [place] [address] Retail Leasing Agent Family [facility] 09/04/24 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 Start Date End Date Preet Farrar DO [address] [place] [address] PCP - General [facility] 11/16/13 [facility] Hospital[facility], BUFFER OPERATOR.ENGINEERING TEST SPECIALIST [address] [place] [address] Retail Leasing [facility] 09/04/24 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 Start Date End Date Preet Farrar DO [address] [place] [address] PCP - General [facility] 11/16/13 [facility] Hospital[facility], BUFFER OPERATOR.ENGINEERING TEST SPECIALIST [address] [place] [address] Retail Leasing [facility] 09/04/24 Team Status: Active Member Role Status Dates Dr. Preet Farrar DO Primary Care Provider Active Start: December 28, 2024 Dr. Anushka Hall MD Admit Provider Active Start: December 28, 2024 Dr. Anushka Hall MD Other Provider Active Start: December 28, 2024 Dr. Reji Cline DO Other Provider Active Start: December 28, 2024 Dr. Douglas Ron MD Other Provider Active Start: December 28, 2024 Dr. Steven Holman MD Attending Provider Active Start: December 28, 2024 Dr. Steven Holman MD Other Provider Active Sta rt: December 28, 2024 Team Status: Inactive Member Role Status Dates Dr. Preet Farrar DO Primary Care Provider Active Start: January 09, 2025 End: January 09, 2025 Dr. Preet Farrar DO Referring Provider Active Start: January 09, 2025 End: January 09, 2025 Dr. Anushka Hall MD Attending Provider Active Start: January 09, 2025 End: January 09, 2025 Team Status: Inactive Member Role Status Dates Dr. Preet Farrar DO Primary Care Provider Active Start: January 26, 2025 End: January 26, 2025 Dr. Preet Farrar DO Referring Provider Active Start: January 26, 2025 End: January 26, 2025 Dr. Julien Reyna MD Attending Provider Active Start: January 26, 2025 End: January 26, 2025 Team Status: Inactive Member Role Status Dates Dr. Preet Farrar DO Primary Care Provider Active Start: February 06, 2025 End: February 06, 2025 Dr. Preet Farrar DO Referring Provider Active Start: February 06, 2025 End: February 06, 2025 Dr. Anushka Hall MD Attending Provider Active Start: February 06, 2025 End: February 06, 2025 Team Status: Inactive Member Role Status Dates Dr. Preet Farrar DO Primary Care Provider Active Start: February 16, 2025 End: February 16, 2025 Dr. Julien Reyna MD Attending Provider Active Start: February 16, 2025 End: February 16, 2025 Dr. Julien Reyna MD Referring Provider Active Start: February 16, 2025 End: February 16, 2025 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 Start Date End Date Preet Farrar DO [address] [place] [address] PCP - General Family Medicine 11/16/13 Kathryn Rivero, BUFFER OPERATOR.ENGINEERING TEST SPECIALIST [address] [place] [address] Retail Leasing Agent Family Medicine 09/04/24 Liliana Bennett, BUFFER OPERATOR.ENGINEERING TEST SPECIALIST [address] [place] [address] Retail Leasing Agent Family Medicine 03/13/25 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 Start Date End Date Preet Farrar DO [address] [place] [address] PCP - General Family Medicine 11/16/13 Kathryn Rivero, BUFFER OPERATOR.ENGINEERING TEST SPECIALIST [address] [place] [address] Retail Leasing Agent Family Medicine 09/04/24 Liliana Bennett, BUFFER OPERATOR.ENGINEERING TEST SPECIALIST [address] [place] [address] Retail Leasing Agent Family Medicine 03/13/25 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 Start Date End Date Preet Farrar DO [address] [place] [address] PCP - General Family Medicine 11/16/13 Kathryn Rivero, BUFFER OPERATOR.ENGINEERING TEST SPECIALIST [address] [place] [address] Retail Leasing Agent Family Medicine 09/04/24 Liliana Bennett, BUFFER OPERATOR.ENGINEERING TEST SPECIALIST [address] [place] [address] Retail Leasing Agent Family Medicine 03/13/25 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 Start Date End Date Preet Farrar DO [address] [place] [address] PCP - General Family Medicine 11/16/13 Kathryn Rivero, BUFFER OPERATOR.ENGINEERING TEST SPECIALIST [address] [place] [address] [facility] 09/04/24 Liliana Bennett, BUFFER OPERATOR.ENGINEERING TEST SPECIALIST [address] [place], [place] [address] [facility] 03/13/25 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 Start Date End Date Preet Farrar DO [address] [place], [place] [id number] [phone] PCP - General Family Medicine 11/16/13 Kathryn Rivero, [place].ENGINEERING TEST SPECIALIST [address] [place], [place] [address] [phone] [facility] 09/04/24 Liliana Bennett, BUFFER OPERATOR.ENGINEERING TEST SPECIALIST [address] [place] [address] [facility] 03/13/25 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 Start Date End Date Preet Farrar DO [address] [place], [place] 8750[address] [phone] PCP - General Family Medicine 11/16/13 Kathryn Rivero, BUFFER OPERATOR.ENGINEERING TEST SPECIALIST [address] [place], [place] [address] [phone] [facility] 09/04/24 Liliana Bennett, BUFFER OPERATOR.ENGINEERING TEST SPECIALIST [address] [place], [place] [address] [facility] 03/13/25 Goals (unrecognized section and content) Goals may be documented in a n alternate sectionGoals may be documented in an alternate sectionGoals may be documented in an alternate sectionGoals may be documented in an alternate section No data available for this sectionGoals may be documented in an alternate section FOR RECORDS PERTAINING TO PATIENTS WHO ARE [...] BE BASED ON THE PRIMARY CLINICAL RECORDS. [facility] [employer] [facility]. provides no warranty or guarantee of the accuracy or completeness of information in this document.
[2025-04-15 14:24] LABS: Mucous, Urine 0 SEEN /hpf (<or=2+); Red Blood Cells-Urine 0 SEEN /hpf (0-5)
[2025-04-15 14:28] LABS: Color, Urine Yellow (Yellow); Glucose, Dipstick 1000 mg/dl (Normal); Ketone-Dipstick 50 mg/dl (Negative); Leukocyte Esterase-Dipstick Negative /ul (Negative); Nitrite-Dipstick Negative (Negative); Occult Blood-Urine 25 /ul (Negative); Protein-Dipstick 30 mg/dl (Negative); Specific Gravity, Urine 1.015 (1.002-1.030); Urine Bilirubin Dipstick Negative (Negative)
[2025-04-15 14:49] LABS: Squamous Epithelial Cells - UA 5-10 SEEN /hpf (5-10)
[2025-04-15 15:10] LABS: Allen Test Positive; Base Excess -1 mmol/L (-2 to +2); PO2 89 mmHG (75-100); SITE L Radial; SO2 98 % (95-99)
[2025-04-15] MEDS: 0.9% Normal Saline (1000mL) 1,000 ML 999 ML IV (15:33)
[2025-04-15 18:09] LABS: Anion Gap 15 (5-15); BUN 21 mg/dL (4-19); BUN/Creat Ratio 30.7 RATIO (10-20); Calcium,Total 9.3 mg/dL (7.6-11.0); Carbon Dioxide 21.1 mmol/L (21.0-32.0); Chloride 94 mmol/L (98-108); Estimated Creatinine Clearance 62.82 ml/min (50-250); Glucose 264 mg/dL (70-99); Potassium 3.5 mmol/L (3.3-5.1)
== END 2025-04-15 20:05 | disposition home or self-care (01) ==
LOC: ED 13:54
PROVIDERS: Emergency Provider Emergency Medicine; PCP Student in an Organized Health Care Education/Training Program; Visit Provider Emergency Medicine
DX: E11.65 Type 2 diabetes mellitus with hyperglycemia (principal); Z79.4 Long term (current) use of insulin; E11.42 Type 2 diabetes mellitus with diabetic polyneuropathy; E78.00 Pure hypercholesterolemia, unspecified; I10 Essential (primary) hypertension; R11.2 Nausea with vomiting, unspecified; Z79.02 Long term (current) use of antithrombotics/antiplatelets; Z79.84 Long term (current) use of oral hypoglycemic drugs; Z79.85 Long-term (current) use of injectable non-insulin antidiabetic drugs; Z79.890 Hormone replacement therapy; Z79.899 Other long term (current) drug therapy; Z86.73 Personal history of transient ischemic attack (TIA), and cerebral infarction without residual deficits; Z87.891 Personal history of nicotine dependence
CPT/HCPCS: 36600; 80048; 81001; 82010; 82803; 82962; 85025; 96361; 96374; 96375; 96376; 99284; A4216; J2405

== ENCOUNTER 2025-05-25 21:38 | Emergency (ER) | payer MEDICARE, MEDICAID, SELFPAY ==
[2025-05-25 21:39] VITALS: BP 164/104; PULSE 100; RESP 18; TEMP 36.8; O2SAT 97; BMI 43.3
--- NOTE | 2025-05-25 22:04 | ED.RN ---
pt has been having sex 1x/wk for 4 wks.
--- NOTE | 2025-05-25 22:10 | EDS_ITS ---
HPI HPI - Female History of Present Illness Chief Complaint: Vag Bleeding Informant: patient Bleeding Issue: Positive for Vaginal bleeding Onset: Today Context: Sudden Onset Timing: Intermittent Current Severity: Similar to period Associated Symptoms Sexually: Positive for Active Narrative Narrative: 69-year-old female history of diabetes, on Plavix due to prior stroke. Patient hysterectomy December 27. She had not had intercourse for months she is not having intercourse again in the last 5 weeks. She has had some intermittent spotting after intercourse. She had intercourse today around 330. Said afterwards she had heavier bleeding with clots. Denies any pelvic pain. Prior similar symptoms: No Recent Illness/Hospitalization: No PFSH PFSH Medical History Cardiology follow-up encounter History of stress test First degree AV block Simple endometrial hyperplasia without atypia Wears glasses Post-menopausal Marijuana use Insulin dependent diabetes mellitus Thyroid disease Fatty liver High cholesterol Ulcerative colitis GERD (gastroesophageal reflux disease) Leg cramps History of echocardiogram Hypertension PONV (postoperative nausea and vomiting) Encounter for screening examination for sexually transmitted disease HPV test positive Pelvic pain Thickened endometrium Anxiety Stroke/cerebrovascular accident (11/02/22) Former tobacco use Near syncope Elevated troponin Abnormal EKG Hyponatremia Prolonged QT interval Polyneuropathy Occlusion of left internal carotid artery Ischemic stroke 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 Irritable bowel syndrome Celiac disease Ulcerative colitis Muscle spasm Hypothyroidism Hypertension Vitamin D deficiency Diabetes mellitus Lumbar spinal stenosis Lumbar disc herniation with radiculopathy Ambulatory dysfunction Intractable back pain Home Medications ?Medication ?Instructions ?Recorded ?Last Taken ?Type ergocalciferol (vitamin D2) 1,250 50,000 unit PO MOFR SUPPLEMENT 12/18/20 12/26/24 08:00 History mcg (50,000 unit) capsule thyroid (pork) 120 mg tablet 120 tablet PO DAILY THYRO ID 12/18/20 12/27/24 06:00 History clopidogrel 75 mg tablet 75 mg PO DAILY BLOOD THINNER #30 11/04/22 12/22/24 Rx tabs carvedilol 6.25 mg tablet 6.25 mg PO BID 03/05/24 04/10/22 06:00 History pantoprazole 40 mg tablet,delayed 40 mg PO DAILY #30 t abs 05/22/24 12/27/24 06:00 Rx release thyroid (pork) 30 mg tablet 30 mg PO MOWEFR 07/21/24 0 12/26/24 08:00 History ([place] Thyroid) insulin glargine 100 unit/mL (3 25 unit subcut DAILY 0 12/12/24 12/26/24 10:00 History mL) subcutaneous pen (Lantus Solostar U-100 Insulin) spironolactone 25 mg tablet 25 mg PO BID 12/12/24 03/10/22 20:00 History elderberry fruit 200 mg capsule 2,000 mg PO DAILY 11/2612/26/24 08:00 History atorvastatin 40 mg tablet 40 mg PO QDAY #90 tabs 01/26 Unknown Rx glimepiride 2 mg tablet 2 mg PO BID 01/26/25 Unknown History dulaglutide 1.5 mg/0.5 mL 1.5 mg subcut FR 04/15/25 Un known History subcutaneous pen injector (Trulicity) Allergy/AdvReac Type Severity Reaction Status Date / Time metformin Allergy Severe Hives Verified 05/25/25 21:43 prednisone Allergy Intermediate Itching Verified 05/25/25 21:43 aspirin Allergy mouth Verified 05/25/25 21:43 swelling gluten Allergy Abd Verified 05/25/25 21:43 cramps/diarrhea ibuprofen Allergy mouth Verified 05/25/25 21:43 swelling Sulfa (Sulfonamide Allergy pt can't Verified 05/25/25 21:43 Antibiotics) remember Family History Mother Heart disease Alzheimers disease Father Heart disease Hypertension CAD (coronary artery disease) Myocardial infarction Thyroid disorder Diabetes Sister Cancer Surgical History History of total vaginal hysterectomy (TVH) History of esophagogastroduodenoscopy (EGD) Hx of colonoscopy History of hysteroscopy History of back surgery (~2019) Hx of umbilical hernia repair S/P tubal ligation S/P cholecystectomy S/P tonsillectomy and adenoidectomy History of lumbar fusion History of lumbar discectomy Social History adopted: No household members: none number of children: 3 sexually active: Yes Smoking Status: Former smoker alcohol intake: never substance use type: marijuana and other details: Medical cannabis, usually daily. seatbelt use: always do you feel safe at home: Yes ROS ROS ED ROS Narrative Denies recent illness. Constitutional Constitutional ED: Denies chills Eyes Eyes: Denies blurry vision ENT ENT ED: Denies ear pain Cardiovascular Cardiovascular: Denies chest pain Respiratory/Chest Respiratory/Chest: Denies cough or dyspnea Gastrointestinal Gastrointestinal: Denies abdominal pain, diarrhea, nausea or vomiting Genitourinary Genitourinary ED: Denies dysuria, hematuria or urinary frequency Musculoskeletal Musculoskeletal: Denies arthralgias, myalgias or neck pain Integumentary Denies abscess, Abrasions or rash Neurologic Neurologic: Denies headache(s) Psychiatric Psychiatric: Denies anxiety or depression Endocrine Endocrinology: Denies heat intolerance Hematologic/Lymphatic Hematologic/Lymphatic: Denies easy bleeding, easy bruising or lymphadenopathy Allergic/Immunologic Allergic/Immunologic ED: Denies mouth swelling, tongue swelling or urticaria EXAM Physical Exam Narrative Exam Narrative: 69-year-old female sitting upright in bed vital signs stable afebrile. No acute distress. H EENT exam pupils round reactive light. Moist Brody membranes. Neck nontender. Lungs clear equal and symmetrical bilaterally. Heart regular rhythm rate about 100 no murmur. Chest wall and ribs nontender. Abdomen soft nontender. Moving all 4 extremities. Nontender no edema. Back nontender. Neurologically she is awake alert. Answering questions following commands. Pelvic exam with the nurse present in the room patient has vaginal bleeding with clots on speculum exam. There appears to be an area in the back of her vaginal area along the cuff that has a tear. Currently the bleeding is not heavy. Const Vital Signs: 05/25/25 21:39 Temperature 98.2 F Temperature Source Temporal Pulse Rate 100 Respiratory Rate 18 Blood Pressure 164/104 H Blood Pressure Mean 124 Pulse Ox 97 Oxygen Delivery Method Room Air Positive well nourished and well developed; Negative for cachectic, contractures or unkempt General Appearance ED: well developed; Negative for unkempt, cachectic, contractures or pallor Nutritional Appearance: Negative for cachectic HEENT Reports moist mucous membranes Eyes PERRL and EOMs intact bilaterally General Eye ED: Negative for pale conjunctiva or scleral icterus Neck no lymphadenopathy, supple and no JVD Chest Wall inspection of chest normal and palpation of chest normal Resp normal respiratory effort and clear to auscultation bilaterally Cardio regular rate, regular rhythm, S1 normal heart sound, no murmurs and no JVD GI normal to inspection, nondistended, normoactive bowel sounds, soft to palpation, non-tender, non-distended and no masses Auscultation: normoactive bowel sounds Palpation: Negative for tender, guarding, rigid or hepatomegaly Back/Spine no CVA tenderness General Back: Negative for CVA tenderness Cervical Spine: Negative for cervical spine tenderness Thoracic Spine / Upper Back: Negative for thoracic spinal tenderness Lumbar Spine / Lower Back: Negative for lumbar spinal tenderness Sacrum: Negative for other Extremity normal to inspection Neuro oriented x3 and CN's II-XII intact bilaterally Sensorium / Orientation: alert, oriented to person, oriented to place and oriented to time Motor Exam: strength 5/5 throughout Psych mental status grossly normal Appearance: Negative for unkempt Skin no rashes or lesions noted and no wounds General Skin Exam: Negative for jaundice or pallor Rashes: No rashes noted Trauma: Negative for other MDM MDM MDM Narrative Medical decision making narrative: 69-year-old female with vaginal bleeding post intercourse tonight. Had a hysterectomy in December. Patient is on Plavix due to her prior stroke. I spoke to Dr. 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 We discussed the patient's exam she will be in evaluate the patient concern for a vaginal tear. History & Record Review Discussion w/independent historian: Patient Additional record(s) reviewed:: Prior outpatient record, Prior ED visit and Prior labs Discharge Plan Triage Chief Complaint: Vag Bleeding ED Provider: Berry Waldrop Dx/Rx/DC Orders Clinical Impression: Tear of vaginal vault, Vaginal bleeding, History of hysterectomy Instructions: ED Vaginal Tear (Non-Obstetric) Prescriptions: No Action glimepiride 2 mg tablet 2 mg PO BID atorvastatin 40 mg tablet 40 mg PO QDAY Qty: 90 3RF thyroid (pork) 120 MG tablet 120 tablet PO DAILY ergocalciferol (vitamin D2) 50,000 UNIT capsule 50,000 unit PO MOFR clopidogrel 75 mg Tablet 75 mg PO DAILY Qty: 30 2RF carvedilol 6.25 mg tablet 6.25 mg PO BID spironolactone 25 mg tablet 25 mg PO BID pantoprazole 40 mg tablet,delayed release (DR/EC) 40 mg PO DAILY Qty: 30 0RF insulin glargine [Lantus Solostar U-100 Insulin] 100 unit/mL (3 mL) insulin pen 25 unit subcut DAILY thyroid (pork) [[place] Thyroid] 30 mg tablet 30 mg PO MOWEFR elderberry fruit 200 mg capsule 2,000 mg PO DAILY Trulicity 1.5 mg/0.5 mL pen injector 1.5 mg subcut FR Primary Care Provider: Preet Farrar Referrals: Preet Farrar, [Primary Care Provider] - Print Language: [place] Citizen
--- OUTSIDE RECORDS SUMMARY | 2025-05-25 22:16 | XMS RPT_ITS | CCD ---
Author Organization [facility] Care Team Providers Care Planning Supervisor Name Role Phone Unavailable Primary Care Provider [...] Care Provider Dr. Jamel Gray Attending Provider 1([facility])[phone] Иван Valencia Emergency Provider Dr. Halley Hodges Admit Provider Dr. Halley Hodges Other Provider Dr. Aibsai Fuentes Attending Provider Dr. Abisai Fuentes Other Provider Dr. Preet Farrar Referring Provider Dr. Kenton Stapleton Attending Provider PREET FARRAR DO Primary Care Physician PREET FARRAR DO Primary Care Unavailable ELOISA LEVIN MD Attending Unavailable Preet Farrar DO Primary Care Provider Kodak [employer].BILLBOARD POSTER, Jacqueline Dowell Unavailable Martir [employer].BILLBOARD POSTER, Kathryn Unavailable Dr. Preet Farrar DO Primary Care Provider Axel TURNER, Dr. Victoria Attending Provider Dr. Julien Reyna MD Referring Provider Dr. Hermes Block MD Attending Provider Dr. Preet Farrar DO Referring Provider Dr. Anushka Isaac MD Attending Provider Dr. Julien Reyna MD Other Provider Isaac TURNER, Dr. Mccullough Attending Provider Dr. Anushka Isaac MD Referring Provider Dr. Anushka Isaac MD Other Provider Dr. Anushka Isaac MD Admit Provider Dr. Reji Cline DO Other Provider Asaf TURNER, Dr. Douglas Soto Other Provider Dr. Steven Holman MD Other Provider Burt TURNER, Dr. Carmen Edwards Attending Provider Dr. Preet Farrar DO Primary Care Provider Dr. Preet Farrar DO Referring Provider Rafael TURNER, Dr. Reveles Attending Provider River TURNER, Dr. Harris Attending Provider Axel TURNER, Dr. Victoria Attending Provider Axel TURNER, Dr. Victoria Referring Provider Rios [employer].BILLBOARD POSTER, Liliana Amadeo Unavailable Charan QUAN, Dr. Oviedo Primary Care Provider Rafael TURNER, Dr. Reveles Attending Provider [phone] Rafael TURNER, Dr. Reveles Referring Provider Charan QUAN, Dr. Oviedo Referring Provider Benjie TURNER, Dr. Smart Emergency Provider Axel, Julien Referring Unavailable Axel, Julien Attending Unavailable Farrar, Preet Primary Care Unavailable Payton Yuan Attending Unavailable Payton Yuan Referring Unavailable Farrar, Preet Primary Care Unavailable Nicole Montez Attending Unavailable Nicole Montez Referring Unavailable Farrar, Preet Primary Care Unavailable Berry Waldrop Attending Unavailable Farrar, Preet Primary Care Unavailable BarkPayton daniels Referring Unavailable Farrar, Preet Primary Care Unavailable Payton Yuan Attending Unavailable Axel, Julien Referring Unavailable Axel, Julien Attending Unavailable Farrar, Preet Primary Care Unavailable Axel, Julien Referring Unavailable Axel, Julien Attending Unavailable Farrar, Preet Primary Care Unavailable Anushka Isaac Attending Unavailable MarquiseonyAnushka Referring Unavailable Farrar, Preet Primary Care Unavailable Anushka Isaac Attending Unavailable Anushka Isaac Consulting Unavailable FroylananthonyAnushka Referring Unavailable Farrar, Preet Primary Care Unavailable MarcanthonyAnushka Referring Unavailable IsaacDelta christianril Attending Unavailable Farrar, Preet Primary Care Unavailable MarquiseonyAnushka Attending Unavailable Farrar, Preet Primary Care Unavailable Farrar, Preet Referring Unavailable Toni TECHNICAL PROFESSIONAL, Angelina Attending Unavailable Farrar, Preet Primary Care Unavailable Farrar, Preet Referring Unavailable Farrar, Preet Referring Unavailable Anushka Isaac Attending Unavailable Farrar, Preet Primary Care Unavailable Axel, Julien Attending Unavailable Farrar, Preet Primary Care Unavailable Farrar, Preet Referring Unavailable MarquiseonyAnushka Attending Unavailable Farrar, Preet Primary Care Unavailable Farrar, Preet Referring Unavailable Marcanthony Anushka Attending Unavailable Farrar, Preet Primary Care Unavailable Farrar, Preet Referring Unavailable Farrar, Preet Primary Care Unavailable Иван Valencia Attending Unavailable Nicole Montez Referring Unavailable Farrar, Preet Primary Care Unavailable Nicole Montez Attending Unavailable FroylananthonyAnushka Attending Unavailable Marcanthony, Anushka Consulting Unavailable Marcanthony Anushka Referring Unavailable Farrar, Preet Primary Care Unavailable Axel, Julien Referring Unavailable Hermes Block Attending Unavailable Farrar, Preet Primary Care Unavailable FroylananthonyAnushka Referring Unavailable Jamel Gray Attending Unavailable Farrar, Preet Primary Care Unavailable Axel, Julien Referring Unavailable Axel, Julien Attending Unavailable Axel, Julien Consulting Unavailable Farrar, Preet Primary Care Unavailable Reji Cline Consulting Unavailable Anushka Isaac Attending Unavailable Marcanthony Anushka Admitting Unavailable Marcanthony, Anushka Referring Unavailable Farrar, Preet Primary Care Unavailable Douglas Ron Consulting Unavailable River, Steven Consulting Unavailable Nicole Montez Attending Unavailable Farrar, Preet Primary Care Unavailable Farrar, Preet Referring Unavailable [place] TECHNICAL PROFESSIONAL, Angelina Referring Unavailable Toni TECHNICAL PROFESSIONAL, Angelina Attending Unavailable Farrar, Preet Primary Care Unavailable Anushka Isaac Attending Unavailable Farrar, Preet Primary Care Unavailable Farrar, Preet Referring Unavailable Farrar, Preet Referring Unavailable Payton Yuan Attending Unavailable Farrar, Preet Primary Care Unavailable Axel, Julien Attending Unavailable Farrar, Preet Primary Care Unavailable Farrar, Preet Referring Unavailable Toni TECHNICAL PROFESSIONAL, Angelina Attending Unavailable Farrar, Preet Primary Care Unavailable Farrar, Preet Referring Unavailable FroylananthonyAnushka Attending Unavailable Farrar, Preet Primary Care Unavailable Farrar, Preet Referring Unavailable River, Steven Attending Unavailable Froylananthony, Anushka Referring Unavailable Marcanthony, Anushka Admitting Unavailable Son Reji Consulting Unavailable Farrar, Preet Primary Care Unavailable KoMax pizanoolas F Consulting Unavailable River, Steven Consulting Unavailable Marcanthony, Anushka Consulting Unavailable Anushka Isaac Attending Unavailable Carmen Dallas Attending Unavailable FARRAR, PREET L Primary Care Unavailable BENDARAM, BEAN GARCIA Referring Unavaila ble FARRAR, PREET L Primary Care Unavailable FARRAR, PREET L Attending Unavailable FARRAR, PREET L Primary Care Unavailable BENDARAM, BEAN GARCIA Attending Unavaila ble FARRAR, PREET L Primary Care Unavailable BENDARAM, BEAN GARCIA Referring Unavaila ble FARRAR, PREET L Primary Care Unavailable RIOS, LILIANA AMADEO Referring Unavailable FARRAR, PREET L Referring Unavailable FARRAR, PREET L Primary Care Unavailable FARRAR, PREET L Primary Care Unavailable RIOS, LILIANA AMADEO Attending Unavailable CATALINA YOUNG Attending Unavailable FARRAR, PREET L Primary Care Unavailable FARRAR, PREET L Primary Care Unavailable FARRAR, PREET L Primary Care Unavailable FARRAR, PREET L Attending Unavailable BENDARAM, BEAN GARCIA Attending Unavaila ble FARRAR, PREET L Primary Care Unavailable BENDARAM, BEAN GARCIA Referring Unavaila ble FARRAR, PREET L Primary Care Unavailable FARRAR, PREET L Attending Unavailable FARRAR, PREET L Primary Care Unavailable SEGUNDO DASILVA Referring Unavailable FARRAR, PREET L Primary Care Unavailable SELF Referring Unavailable FARRAR, PREET L Primary Care Unavailable RIOS, LILIANA AMADEO Attending Unavailable FARRAR, PREET L Primary Care Unavailable RIOS, LILIANA AMADEO Referring Unavailable FARRAR, PREET L Attending Unavailable FARRAR, PREET L Primary Care Unavailable FARRAR, PREET L Referring Unavailable FARRAR, PREET L Primary Care Unavailable FARRAR, PREET L Referring Unavailable BENDARAM, BEAN GARCIA Attending Unavaila ble FARRAR, PREET L Primary Care Unavailable FARRAR, PREET L Primary Care Unavailable JACQUELINE CANDELARIO Referring Unavailabl e Allergies Allergy Classification Reported Allergen(s) Allergy Type Date of Onset Reaction(s) Facility (1 source) Aluminum aspirin Drug Allergy 1 Swelling [facility] Work Phone: (1 source) Sulfonamides (Antibiotic) Propensity to adverse reactions to drug 1 Swelling [facility] Work Phone: (20 sources) Wheat gluten extract Drug Allergy 7 Diarrhea, Unknown, Intolerance [facility] Work Phone: (1 source) Metformin And Related Propensity to adverse reactions to drug 1 Diarrhea, Itching [facility] Work Phone: (20 sources) metFORMIN; Translations: [metformin] Drug Allergy 0 GI Upset, Itching [facility] (20 sources) predniSONE; Translations: [prednisone] Drug Allergy 3 Itching [facility] Comment on above: itching and hives (12 sources) Salicylic Acid; Translations: [salicylates] Drug Allergy 6 [facility] Work Phone: (20 sources) Sulfonamides (Antibiotic); Translations: [SULFA (SULFONAMIDE ANTIBIOTICS)] Propensity to adverse reactions 6 Rash [facility] Work Phone: (20 sources) Salicylate product Propensity to adverse reactions 6 Hives, GI Upset [facility] Work Phone: (10 sources) Aspirin Drug Allergy 1 mouth swelling [facility] (10 sources) Ibuprofen Drug Allergy 1 mouth swelling [facility] (9 sources) Sulfonamides (Antibiotic) Allergy to substance 3 pt can't remember [facility] (1 source) Gluten Food allergy [facility] (1 source) Sulfonamide; Translations: [sulfa drugs] Drug allergy [facility] (1 source) Aspirin Drug Allergy 5 [facility] (2 sources) Gluten; Translations: [GLUTEN] Drug allergy (disorder) 7 [facility] (1 source) Ibuprofen Drug Allergy 5 [facility] (1 source) metFORMIN Drug Allergy 5 [facility] (1 source) predniSONE Drug Allergy 5 [facility] Rep[facility] (1 source) Sulfonamides (Antibiotic) Drug allergy (disorder) 5 [facility] Repository Medications Current Medications Medication Drug Class(es) Dates Sig (Normalized) Sig (Original) acetaminophen 500 mg oral tablet (12 sources) Start: 01-11-2021 take 1000 mg by [...] tablet (20 sources) HMG-CoA Reductase Inhibitor Start: 01-26-2025 take 1 tablet by mouth once daily atorvastatin (LIPITOR) 40 mg tablet Indications: Ischemic stroke without residual deficits (HCC) Take 1 tablet by mouth once daily. 90 tablet 03/16/2025 Active Start: 11-04-2022 End: 03-16-2025 take 1 tablet by mouth at bedtime Atorvastatin 80 mg Tablet Discontinued 80 mg PO AT BEDTIME 30 2 November 04, 2022 1:00am January 26, 2025 4:44pm cholesterol End: 11-05-2022 atorvastatin (LIPITOR) 10 mg tablet [...] Blood-Glucose Meter monitoring kit (1 source) Start: 04-03-20 End: 04-04-20 Blood-Glucose Meter monitoring kit Glucose Meter of Choice - Kit - Dx: Type 2 DM - Controlled E11.9 Check Sugars 4 times Daily Patient states that Acc-check is covered 1 each 04/03/2025 04/04/2025 Active Blood-Glucose Meter,Continuous (DEXCOM G6 FIRE HAZARD INSPECTOR) misc (4 sources) Start: 04-18-20 Blood-Glucose Meter,Continuous (DEXCOM G6 FIRE HAZARD INSPECTOR) misc Indications: Type 2 diabetes mellitus with hyperosmolarity without coma, with long-term current use of insulin (HCC) , Uncontrolled type 2 diabetes mellitus with hyperglycemia (HCC) Use to check blood sugar at least four (4) times daily. 1 each 04/18/2025 Active Blood-Glucose Sensor (DEXCOM G6 SENSOR) jerome (4 sources) Start: 04-18-20 25 Blood-Glucose Sensor (DEXCOM G6 SENSOR) jerome Indications: Type 2 diabetes mellitus with hyperosmolarity without coma, with long-term current use of insulin (HCC) , Uncontrolled type 2 diabetes mellitus with hyperglycemia (HCC) Apply new sensor every ten (10) days to abdomen. 9 each 3 04/18/2025 Active Blood-Glucose Transmitter (DEXCOM G6 TRANSMITTER) jerome (4 sources) Start: 04-18-20 25 Blood-Glucose Transmitter (DEXCOM G6 TRANSMITTER) jerome Indications: Type 2 diabetes mellitus with hyperosmolarity without coma, with long-term current use of insulin (HCC) , Uncontrolled type 2 diabetes mellitus with hyperglycemia (HCC) Apply new transmitter every 90 days. Clean transmitter with an alcohol swab with each sensor change. 1 each 3 04/18/2025 Active carvedilol 6.25 mg oral tablet (20 sources) alpha-Adrenergic Kari, beta-Adrenergic Kari Start: 10-21-19 End: 11-30-19 take 1 tablet by mouth twice daily [...] two times a day with meals. cholecalciferol 94000 unt oral capsule (1 source) Vitamin D Cholecalciferol (VITAMIN D3) 1.25 MG (22335 UT) CAPS Take 50,000 capsules by mouth Twice a Week Thursday and Thursday 0 Active clopidogrel 75 mg oral tablet (20 sources) P2Y12 Platelet Inhibitor Start: End: take 1 tablet by mouth once daily clopidogrel (PLAVIX) 75 mg tablet Indications: Ischemic stroke without residual deficits (HCC) Take 1 tablet by mouth once daily. 90 tablet 1 05/15/2025 Active Comment on above: Take 75 mg by mouth once daily. Take 1 tablet by vaibhav once daily. cyclobenzaprine hydrochloride 10 mg oral tablet (7 sources) Muscle Relaxant Start: End: take 10 mg by mouth three times daily as needed Cyclobenzaprine Active 10 MG PO 3 TIMES DAILY NEEDED December 28, 2020 12:00am Comment on above: Take 1 tablet by vaibhav three times daily as needed for Muscle Spasm or Pain. docusate sodium 100 mg oral capsule (1 source) Start: docusate sodium (COLACE) capsule 100 mg docusate sodium 50 mg / sennosides, residential 8.6 mg oral tablet (1 source) Start: 04-16-2 021 take 2 tablets by mouth three times daily Sennosides-Docusate Sodium Active 2 TABLET PO THREE TIMES A DAY January 11, 2021 12:00am 0.5 ml dulaglutide 3 mg/ml auto-injector (20 sources) GLP-1 Receptor Agonist Start: 025 inject 1.5 mg by subcutaneous injection every [...] 01, 2023 12:00am May 22, 2024 9:05pm SUPPLEMENT Start: 07-01-2023 take 1000 mg by mout [...] Ergocalciferol (Vitamin D2) 50,000 UNIT capsule Active 93295 U PO MOFR December 18, 2020 12:00am SUPPLEMENT Comment on above: Take 1 capsule by mo [facility] two times a week. gabapentin 400 mg oral capsule (13 sources) Anti-epileptic Agent Start: 01-11-2021 take 400 mg by mouth four times daily at mealtime Gabapentin Active 400 MG PO 4 TIMES DAILY WITH MEALS January 11, 2021 12:00am Start: 12-24-2020 End: 01-11-2021 take 1 capsule by mouth three times daily Gabapentin 300 MG capsule Discontinued 300 mg PO THREE TIMES A DAY December 28, 2020 12:00am January 11, 2021 4:33pm Nerve pain For 7 days glimepiride 2 mg oral [...] 2 mg PO TWICE A DAY 60 0 March 09, 2024 12:00am August 10, 2024 [...] 18, 2020 12:00am March 05, 2024 2:15pm Blood sugar Start: 12-18-2020 take 1 tablet by vaibhav th once [...] pen injector (20 sources) Insulin Analog Start: 04-18-2025 End: 04-18-2025 inject 20 [IU] by subcutaneous injection once daily in the morning insulin glargine (LANTUS SOLOSTAR U-100 INSULIN) 100 unit/mL (3 mL) Indications: Uncontrolled type 2 diabetes mellitus with hyperglycemia (HCC) Inject 20 Units subcutaneously every morning. Pt reports she is taking 20 units 04/18/25 6 mL 04/18/2025 04/18/2025 Discontinued Start: 03-24-2025 End: 10-15-2025 insulin glargine (LANTUS PARAM OSTAR U-100 INSULIN) 100 unit/mL (3 mL) Indications: Uncontrolled type 2 diabetes mellitus with hyperglycemia (HCC) Inject 25 Units subcutaneously every morning. 9 mL 2 04/18/2025 10/15/2025 Active Start: 12-12-2024 Insulin Glargi ne (Lantus [...] as needed for nausea and vomiting 15 5 0 March 08, 2024 12:00am May 22, 2024 9:06pm Start: 03-18-2023 End: 03-16-2025 take 1 tablet by mouth every eight hours as needed for nausea Ondansetron 4 mg tablet,disintegrating Discontinued 4 mg PO EVERY 8 HOURS NEEDED as needed for Nausea 10 0 May 22, 2024 12:00am July 21, 2024 8:23am Comment on above: Take 1 tablet by [...] once daily. 30 tablet 5 02/17/2025 Active perflutren lipid microspheres 1.3 mL in NaCl (PF) 0.9% 10 mL injection (DEFINITY) (20 sources) Start: 02-19-2022 End: 05-21-2023 perflutren lipid microspheres 1.3 mL in NaCl (PF) 0.9% 10 mL injection (Asclepius FarmsITY) polyethylene glycol 3350 32953 mg powder for oral solution (2 sources) [...] 12-18-2020 Thyroid (Pork) Active 240 MG PO FR December 18, 2020 12:00am Thyroid (Pork) (Kinney Thyroid) 30 mg tablet (3 sources) Start: 07-21-2024 Thyroid (Pork) (Kinney Thyroid) 30 mg tablet Active 30 mg PO MOWEFR July 21, 2024 12:00am Thyroid (Pork) 120 MG tablet (6 sources) Start: 12-18-2020 take 1 tablet by mouth once daily Thyroid (Pork) 120 MG tablet Active 120 {tbl} PO DAILY December 18, 2020 12:00am THYROID Start: 12-18-2020 End: 03-05-2024 Thyroid (Pork) 120 MG tablet Discontinued 240 mg PO December 18, 2020 12:00am March 05, 2024 2:16pm THYROID Start: 12-18-2020 take 1 tablet by vaibhav th once daily Thyroid (Pork) 120 MG tablet Active 120 {tbl} PO DAILY December 18, 2020 12:00am Start: 12-18-2020 End: 03-05-2024 Thyroid (Pork) 120 MG tablet Discontinued 240 mg PO December 18, 2020 12:00am March 05, 2024 2:16pm thyroid (residential) 30 mg oral tablet (20 sources) Start: 01-20-2025 take 1 tablet by mouth once daily in the morning ARMOUR THYROID 120 mg tablet Indications: Acquired hypothyroidism Take 1 tablet PO daily in AM 90 tablet 1 01/20/2025 Active Start: 11-02-2024 End: 04-19-2025 take 1 tablet by mouth once in the morning ARMOUR THYROID 30 mg tablet Indications: Acquired hypothyroidism Take 1 tablet by mouth every Thursday, Thursday, and Thursday. In the morning. (Take this is addition to the 120 mg armor thyroid) 36 tablet 1 04/19/2025 Active Start: 11-02-2024 take 1 tablet by vaibhav th once in the morning ARMOUR THYROID 30 mg tablet Indications: Acquired hypothyroidism Take 1 tablet by mouth every Thursday, Thursday, and Thursday. In the morning. (Take this is addition to the 120 mg armor thyroid) 36 tablet 1 11/02/2024 Active Start: 08-15-2024 take 1 tablet by vaibhav once daily in the morning ARMOUR THYROID [...] Start: 10-20-2022 take 2 tablets by mo [facility] every week Kinney Thyroid 120 mg oral tablet 32 EA, [...] / oxyCODONE hydrochloride 5 mg oral tablet (3 sources) Opioid Agonist Start: 12-27-2024 End: 01-09-2025 Oxycodone-Acetamin ophen (Percocet) 5-325 mg tablet Discontinued 1 {tbl} PO Q4H as needed for pain 20 7 0 December 27, 2024 January 09, 2025 11:11am History of total vaginal hysterectomy (TVH) Acquired absence of both cervix and uterus Blood Pressure Monitor (BLOOD PRESSURE KIT) kit (2 sources) Start: 05-25-2019 Blood Pressure Monitor (BLOOD PRESSURE KIT) kit Indications: Essential hypertension, benign 1 Device as directed. Dx: essential hypertension 1 Kit 0 05/25/2019 Active Comment on above: 1 Device as directed . Dx: essential hypertension busPIRone hydrochloride 5 mg oral tablet (17 sources) Start: 05-22-2024 End: 07-07-2024 take 1 [...] on above: Take 1 tablet by vaibhav three times a day as needed. calcium [...] removed cloNIDine hydrochloride 0.1 mg oral tablet (3 sources) Central alpha-2 Adrenergic Agonist Start: 05-22-20 [...] Discontinued Start: 11-21-2021 take 1 capsule by [facility] once daily cyanocobalamin, vitamin B-12, 3,000 mcg cap Indications: Vitamin B12 deficiency Take 3,000 mcg by mouth once daily. 30 capsule 3 11/21/2021 Active Comment on above: Take 3,000 mcg by mo [facility] once daily. dexamethasone 1 mg oral tablet [...] Discontinued losartan potassium 25 mg oral tablet (20 sources) Angiotensin 2 Receptor Kari Start: 08-17-2024 End: 03-16-2025 take 1 tablet by mouth once daily Losartan 25 mg tablet Discontinued 25 mg PO daily 90 3 August 17, 2024 1:00am December 12, 2024 10:57am Start: 11-13-2023 End: 05-11-2024 take 1 tablet [...] Polyene Antifungal, Corticosteroid Start: 04-24-20 End: 02-01-20 nystatin-triamcinolon e (MYCOLOG) ointment Indications: Yeast infection of the skin Apply sparingly to perineum twice daily for irritation/infection. 30 g 0 04/24/2021 01/31/2022 Discontinued Comment on above: Apply sparingly to p erineum twice daily for irritation/infection. oxyCODONE hydrochloride 10 mg oral tablet (12 sources) Opioid Agonist Start: 01-12-20 End: 01-19-20 take 1 tablet by mouth three times daily Oxycodone 10 MG tablet Discontinued 10 mg PO THREE TIMES A DAY 21 7 0 January 11, 2021 January 17, 2021 12:00am January 18, 2021 12:03am Lumbar radiculopathy Intractable back pain Spinal stenosis of lumbar region Status post lumbar discectomy Radiculopathy, lumbar region Dorsalgia, unspecified Spinal stenosis, lumbar region without neurogenic claudication Other specified postprocedural states Start: 01-11-2021 take 10 mg by mouth every four hours as needed Oxycodone Active 10 MG PO EVERY 4 HOURS NEEDED January 11, 2021 Start: 12-21-2020 take 5 mg by mouth e very four hours as needed for pain 5 mg, Oral, EVERY 4 HOURS PRN, Pain Moderate (4-6), Starting Thu12/21/20 at 0329 Semaglutide (7 sources) Start: 03-16-2023 End: 03-05-2024 Semaglutide (Ozempic) 0.25 m g or 0.5 mg (2 mg/3 mL) pen injector Discontinued 0.5 mg SC MO March 16, 2023 12:00am March 05, 2024 2:17pm BLOOD SUGARS Start: 03-16-2023 End: 03-05-2024 Semaglutide (Ozempic) 0.25 [...] EVERY WEEK March 16, 2023 12:00am Semaglutide (3 sources) Start: 03-05-2024 End: 03-09-2024 Semaglutide (Ozempic) [...] C-Zinc Citrate-Elderberry (Sambucus Elderberry) 30-1.1-25 mg tablet,chewable (3 sources) Start: 05-22-20 End: 12-14-19 Vit C-Zinc [...] 02, 2022 1:00am March 05, 2024 2:15pm SUPPLEMENT Start: 11-02-2022 take 3000 ug by mout [...] chronic renal failure, unspecified CKD stage] Onset: 5 Chronic Chronic kidney disease (2 sources) Chronic kidney disease; Translations: [Stage 3 chronic kidney disease, unspecified whether stage 3a or 3b CKD (HCC)] Onset: 5 Complication of device; implant or graft (10 sources) Catheter-associated urinary tract infection; Translations: [Infection and inflammatory reaction due to indwelling urethral catheter, initial encounter] 01-11-2021 Episodic Conduction disorders (3 sources) First degree atrioventricular block; Translations: [Atrioventricular block, first degree] 08-19-2024 Chronic Deficiency and other anemia (1 source) Anemia in chronic kidney disease; Translations: [Anemia of chronic renal failure, unspecified CKD stage] Onset: 5 Chronic Deficiency and other anemia (1 source) Iron deficiency anemia; Translations: [Iron deficiency anemia, unspecified] Episodic Diabetes mellitus with complications (20 sources) Type II diabetes mellitus uncontrolled; Translations: [Type 2 diabetes mellitus with hyperglycemia] Onset: 0 05-21-2020 Chronic Diabetes mellitus without complication (20 sources) Type 2 diabetes mellitus without complication; Translations: [Type 2 diabetes mellitus without complications] Onset: 6 Resolved: 3 09-23-2021 Chronic Diabetes mellitus without complication (6 sources) Hyperglycemia; Translations: [Hyperglycemia, unspecified] Onset: 5 06-26-2023 Episodic Diseases of white blood cells (5 sources) Leukocytosis; Translations: [Elevated white blood cell count, unspecified] Onset: 5 03-17-2024 Chronic Disorders of lipid metabolism (20 [...] fracture] Episodic Genitourinary symptoms and ill-defined conditions (11 sources) Retention of urine; Translations: [Retention of urine, unspecified] 01-11-2021 Episodic Heart valve disorders (20 sources) Nonrheumatic aortic (valve) stenosis; Translations: [Aortic valve disorders] Onset: 9 09-06-2019 Chronic Hypertension with complications and secondary hypertension (5 sources) Benign hypertensive heart disease; Translations: [Hypertensive heart disease without heart failure] Onset: 4 08-12-2024 Chronic Inflammatory diseases of female pelvic organs (1 source) Bacterial vaginosis; Translations: [Acute vaginitis] 01-03-2024 Episodic Mycoses (1 source) Candidiasis of vagina; Translations: [Vaginal yeast infection] 01-27-2024 Episodic Nausea and vomiting (2 sources) Nausea and vomiting; Translations: [Nausea with vomiting, unspecified] 06-26-2023 Episodic Noninfectious gastroenteritis (4 sources) Gastroenteritis; Translations: [Noninfective gastroenteritis and colitis, unspecified] 03-21-2024 Episodic Nutritional deficiencies (20 sources) Vitamin D deficiency; Translations: [Vitamin D deficiency, unspecified] Onset: 2 Chronic Occlusion or stenosis of precerebral arteries (10 sources) Left carotid artery occlusion; Translations: [Occlusion and stenosis of left carotid artery] 03-18-2023 Chronic Other aftercare (2 sources) Postoperative visit; Translations: [Encounter for other specified surgical aftercare] 02-06-2025 Episodic Other aftercare (1 source) Encounter for other specified surgical aftercare; Translations: [Encounter for other specified surgical aftercare] Onset: 5 Episodic Other circulatory disease (9 sources) Disorder of carotid artery; Translations: [Disorder of arteries and arterioles, unspecified] 10-21-2022 Chronic Other circulatory disease (2 sources) Disorder of arteries and arterioles, unspecified; Translations: [Disorder of arteries and arterioles, unspecified] Onset: 4 Chronic Other circulatory disease (8 sources) History of cerebrovascular accident; Translations: [Personal history of transient ischemic attack (TIA), and cerebral infarction without residual deficits] 08-17-2024 Episodic Other connective tissue disease (10 sources) Spasm; Translations: [Other muscle spasm] 12-28-2020 Episodic Other connective tissue disease (10 sources) History of lumbar fusion; Translations: [Arthrodesis status] 11-02-2022 Episodic Other connective tissue disease (10 sources) Neuropathic pain; Translations: [Neuralgia and neuritis, unspecified] 11-02-2022 Episodic Other female genital disorders (11 sources) Endometrial hyperplasia; Translations: [Endometrial hyperplasia, unspecified] 09-13-2024 Chronic Comment on above: not a hormonal ángela date, plan tvhbs, needs cardio and pcp clearance Other female genital disorders (3 sources) 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; [...] Onset: 0 09-23-2021 Chronic Other gastrointestinal disorders (10 sources) Irritable bowel syndrome; Translations: [Irritable bowel syndrome without diarrhea] 11-02-2022 Chronic Other gastrointestinal disorders (1 source) Irritable bowel syndrome without diarrhea; Translations: [Irritable bowel syndrome, unspecified] Onset: 4 Chronic Other gastrointestinal disorders (3 sources) H/O: ulcerative colitis; Translations: [Personal history of other diseases of the digestive system] 05-30-2024 Episodic Other injuries and conditions due to external causes (5 sources) Injury of head; Translations: [Unspecified injury of head, initial encounter] 07-11-2023 Episodic Other nervous system disorders (20 sources) Spinal cord disease; Translations: [Disease of spinal cord, unspecified] Onset: 4 11-02-2022 Chronic Other nervous system disorders (10 sources) Walking disability; Translations: [Difficulty in walking, not elsewhere classified] 12-18-2020 Chronic Other nervous system disorders (7 sources) Polyneuropathy; Translations: [Polyneuropathy, unspecified] 03-18-2023 Chronic [...] Chronic Other nutritional; endocrine; and metabolic disorders (5 sources) Obese class II; Translations: [Obesity, Class II, BMI 35-39.9] Onset: 5 04-18-2025 Chronic Other nutritional; endocrine; and metabolic disorders (2 sources) Abnormal weight gain; Translations: [Abnormal weight gain] 02-09-2025 Episodic Other screening for suspected conditions (not mental disorders or infectious disease) (6 sources) Endometrium thickened; Translations: [Abnormal findings on [...] Onset: 4 11-02-2022 Chronic Residual codes; unclassified (10 sources) History of lumbar discectomy; Translations: [Other specified postprocedural states] 11-02-2022 Episodic Residual codes; unclassified (10 sources) Tobacco user; Translations: [Tobacco use] 11-02-2022 Episodic Residual codes; unclassified (1 source) Difficulty sleeping ; Translations: [Sleep deprivation] 01-27-2024 Episodic Residual codes; unclassified (3 sources) Positive measurement finding; Translations: [Other nonspecific abnormal findings] 08-12-2024 Episodic Comment on above: Negative pap; Rpt pa p and hpv 1 year Screening and history of mental health and [...] unspecified, uncomplicated] Onset: 0 10-29-2009 Chronic Syncope (5 sources) Near syncope; Translations: [Syncope and collapse] [...] sources) Palpitations; Translations: [Palpitations] Onset: 02-19-2022 Episodic Malaise and fatigue (20 sources) Fatigue; Translations: [Other fatigue] Onset: 09-07-2017 09-07-2017 Episodic Nutritional deficiencies (20 sources) Cobalamin deficiency; Translations: [Deficiency of other specified B group vitamins] Onset: 09-10-2022 Episodic Other aftercare (2 sources) USP (current) use of insulin; Translations: [Type 2 diabetes mellitus with hyperosmolarity without coma, with long-term current use of insulin (HCC)] Onset: 12-09-2023 Episodic Other circulatory disease (2 sources) Personal history of transient ischemic attack (TIA), and cerebral infarction without residual deficits; Translations: [Personal history of transient ischemic attack (TIA), and cerebral infarction without residual deficits] Onset: 08-17-2024 Episodic Other connective tissue disease (20 sources) Medial epicondylitis of left humerus; Translations: [Medial epicondylitis, left elbow] Onset: 09-07-2017 09-07-2017 Episodic Other nutritional; endocrine; and metabolic disorders (1 source) Abnormal weight gain; Translations: [Abnormal weight gain] Onset: 02-09-2025 Episodic Other screening for suspected conditions (not mental disorders or infectious disease) (20 sources) Patient encounter status; Translations: [Encounter for screening mammogram for malignant neoplasm of breast] Onset: 06-24-2024 Episodic Residual codes; unclassified (1 source) Acquired absence of both cervix and uterus; Translations: [Acquired absence of both cervix and uterus] Onset: 01-04-2025 Episodic Unclassified (1 source) Patient encounter status 01-03-2025 Results Test Name Value Interpretation Reference Range Facility HbA1c (Bld)on 05-23-2025 Average glucose Estimated from glycated hemoglobin (Bld) [Mass/Vol] 189 mg/dL Normal [facility] Comment on above: Order Comment: Speci men Type: BLOOD SPECIMENOrdering Facility: [facility] Address: [address] [place] [address] Result Comment: eAG: (Estimated average glucose) is a calculated value from HgbA1c and is front office representative of the average blood glucose level in the last 2-3 month period. Performed By: #### 5 5454-3 ####[facility] LABCLIA [id number] [place] [address] [place] HbA1c (Bld) [Mass fraction] 8.2 % High 4.3-5.6 [facility] Comment on above: Order Comment: Speci men Type: BLOOD SPECIMENOrdering Facility: [facility] Address: [address] [place] [address] Result Comment: Amer [place] Diabetes Association guidelines indicate that patients with HgbA1c in the range 5.7-6.4% are at increased risk for development of diabetes, and intervention by lifestyle modification may be beneficial. HgbA1c greater or equal to 6.5% is considered diagnostic of diabetes. Performed By: #### 5 5454-3 ####[facility] LABCLIA [id number] [place] [address] [place] Lipid 1996 panelon 5 Cholesterol [Mass/Vol] 111 mg/dL Normal <200 [facility] Comment on above: Order Comment: Speci men Type: BLOOD SPECIMENOrdering Facility: [facility] Address: [address] [place] [address] Result Comment: <200 mg/dL, Desirable 200-239 mg/dL, Borderline high >239 mg/dL, High Performed By: #### 3 016-3, 01457-9 ####[facility] LABCLIA [id number] [address] [place] Cholesterol in HDL [Mass/Vol] 55 mg/dL Normal >39 [facility] Comment on above: Order Comment: Speci men Type: BLOOD SPECIMENOrdering Facility: [facility] Address: [address] [place] [address] Result Comment: 40-5 9 mg/dL, Acceptable >59 mg/dL, High: Negative risk factor for coronary heart disease <40 mg/dL, Low: Positive risk factor for coronary heart disease Performed By: #### 3 016-3, 06075-6 ####[facility] LABCLIA [id number] [place] [address] [place] Cholesterol in LDL [Mass/Vol] 38 mg/dL Normal <100 [facility] Comment on above: Order Comment: Speci men Type: BLOOD SPECIMENOrdering Facility: [facility] Address: [address] [place] [address] Result Comment: <100 mg/dL, Optimal 100-129 mg/dL, Near optimal/above optimal 130-159 mg/dL, Borderline high 160-189 mg/dL, High >189 mg/dL, Very high Secondary prevention optimal LDL Cholesterol levels are recommended to be <70 mg/dL LDL cholesterol is calculated using the Givens-NIH equation. Performed By: #### 3 016-3, 69921-3 ####[facility] LABCLIA [id number] [place] [address] [place] Cholesterol in LDL/Cholesterol in HDL [Mass ratio] 0.69 {ratio} Normal <2.54 [facility] Comment on above: Order Comment: Speci men Type: BLOOD SPECIMENOrdering Facility: [facility] Address: [address] [place] [address] Result Comment: Kyra glover: 1. National Cholesterol Education Program ATP III Guideline At-A-Glance Quick Desk Reference: National Heart, Lung, and Blood Emily. National Institutes of Health. 2001: NIH Publication No. 01-3305. 2. An International Atherosclerosis Society position paper: global recommendations for the management of dyslipidemia: executive summary, Atherosclerosis. 2014: 232(2):410-413. Performed By: #### 3 -3, 63314-3 ####[facility] LABIA [id number] [place] [address] [place] Cholesterol in VLDL [Mass/Vol] 13 mg/dL Normal <30 [facility] Comment on above: Order Comment: Noryi men Type: BLOOD SPECIMENOrdering Facility: [facility] Address: [address] [place] [address] Performed By: #### 3 -3, 87006-5 ####[facility] LABCLIA [id number] [address] [address] [place] Cholesterol non HDL [Mass/Vol] 56 mg/dL Normal <130 [facility] Comment on above: Order Comment: Speci men Type: BLOOD SPECIMENOrdering Facility: [facility] Address: [address] [place], [place] [id number] Result Comment: <130 mg/dL, Optimal 130-159 mg/dL, Near optimal/above optimal 160-189 mg/dL, Borderline high 190-219 mg/dL, High >219 mg/dL, Very high Secondary prevention optimal non HDL Cholesterol levels are recommended to be <100 mg/dL Performed By: #### 3 016-3, 48095-3 ####[facility] LABCLIA [id number] [place] [address] [place] Cholesterol.total/Mary sterol in HDL [Mass ratio] 2.02 {ratio} Normal <5.10 [facility] Comment on above: Order Comment: Speci men Type: BLOOD SPECIMENOrdering Facility: [facility] Address: [address] [place] [address] Performed By: #### 3 016-3, 41739-5 ####[facility] LABCLIA [id number] [place] [address] [place] FASTING TIME [address] [facility] Comment on above: Order Comment: Speci men Type: BLOOD SPECIMENOrdering Facility: [facility] Address: [address] [place], [place] [id number] Performed By: #### 3 016-3, 86203-0 ####[facility] LABIA [id number] [place] [id number] [place] Triglyceride [Mass/Vol] 96 mg/dL Normal <150 [facility] Comment on above: Order Comment: Speci men Type: BLOOD SPECIMENOrdering Facility: [facility] Address: [address] [place], [place] [id number] Result Comment: <150 mg/dL, Normal 150-199 mg/dL, Borderline high 200-499 mg/dL, High >499 mg/dL, Very high Performed By: #### 3 016-3, 12383-6 ####[facility] LABIA [id number] [place] [address] [place] TSH SerPl-aCncon 05-23-2025 TSH Qn 0.033 m[IU]/L Low 0.270-4.200 [facility] Comment on above: Order Comment: Speci men Type: BLOOD SPECIMENOrdering Facility: [facility] Address: [address] [place] [address] Performed By: #### 3 016-3, 94280-8 ####[facility] [id number] [place] [address] [place] Bacteria Ur Culton Bacteria identified Cx Nom (U) ORGANISM ID: 1 10,000 -<50,000 CFU/ml Normal urogenital jostin Normal [facility] Comment on above: Performed By: #### 6 30-4 ####[facility] [id number] [place] [address] [place] CBC W Auto Differential pane l (Bld)on 04-28-2025 Basophils (Bld) [#/Vol] 0.06 10*3/uL Normal <0.11 [facility] Comment on above: Order Comment: Speci men Type: BLOOD SPECIMENOrdering Facility: [facility] Address: [address] [place] [address] Performed By: #### 5 7021-8 ####[facility] LABIA [id number] [place] [address] [place] Basophils/100 WBC (Bld) 0.5 % Normal [facility] Comment on above: Order Comment: Speci men Type: BLOOD SPECIMENOrdering Facility: [facility] Address: [address] [place] [address] Performed By: #### 5 7021-8 ####[facility] LABCLIA [id number] [address], [place] [address] [place] Differential cell count method Nom (Bld) Auto Normal [facility] Comment on above: Order Comment: Speci men Type: BLOOD SPECIMENOrdering Facility: [facility] Address: [address] [place] [address] Performed By: #### 5 7021-8 ####[facility] LABCLIA [id number] [address], [place] [address] [place] Eosinophils (Bld) [#/Vol] 0.24 10*3/uL Normal <0.46 [facility] Comment on above: Order Comment: Speci men Type: BLOOD SPECIMENOrdering Facility: [facility] Address: [address] [place] [address] Performed By: #### 5 7021-8 ####[facility] LABCLIA [id number] [place] [address] [place] Eosinophils/100 WBC (Bld) 1.9 % Normal [facility] Comment on above: Order Comment: Speci men Type: BLOOD SPECIMENOrdering Facility: [facility] Address: [address] [place] [address] Performed By: #### 5 7021-8 ####[facility] LABIA [id number] [place] [address] [place] Erythrocyte distribution width (RBC) [Ratio] 13.1 % Normal 11.5-15.0 [facility] Comment on above: Order Comment: Speci men Type: BLOOD SPECIMENOrdering Facility: [facility] Address: [address] [place] [address] Performed By: #### 5 7021-8 ####[facility] LABCLIA [id number] [place] [address] [place] Hematocrit (Bld) [Volume fraction] 41.5 % Normal 36.0-46.0 [facility] Comment on above: Order Comment: Speci men Type: BLOOD SPECIMENOrdering Facility: [facility] Address: [address] [place] [address] Performed By: #### 5 7021-8 ####[facility] LABIA [id number] [place] [address] [place] Hemoglobin (Bld) [Mass/Vol] 14.1 g/dL Normal 11.5-15.5 [facility] Comment on above: Order Comment: Speci men Type: BLOOD SPECIMENOrdering Facility: [facility] Address: [address] [place] [address] Performed By: #### 5 7021-8 ####[facility] LABIA [id number] [place] [address] [place] Immature granulocytes (Bld) [#/Vol] 0.09 10*3/uL Normal <0.10 [facility] Comment on above: Order Comment: Speci men Type: BLOOD SPECIMENOrdering Facility: [facility] Address: [address] [place] [address] Performed By: #### 5 7021-8 ####[facility] LABIA [id number] [place] [address] [place] Immature granulocytes/100 WBC (Bld) 0.7 % Normal [facility] Comment on above: Order Comment: Speci men Type: BLOOD SPECIMENOrdering Facility: [facility] Address: [address] [place] [address] Performed By: #### 5 7021-8 ####[facility] LABIA [id number] [place] [address] [place] Lymphocytes (Bld) [#/Vol] 2.82 10*3/uL Normal 1.00-4.00 [facility] Comment on above: Order Comment: Speci men Type: BLOOD SPECIMENOrdering Facility: [facility] Address: [address] [place] [address] Performed By: #### 5 7021-8 ####[facility] LABCLIA [id number] [place] [address] [place] Lymphocytes/100 WBC (Bld) 21.8 % Normal [facility] Comment on above: Order Comment: Speci men Type: BLOOD SPECIMENOrdering Facility: [facility] Address: [address] [place] [address] Performed By: #### 5 7021-8 ####[facility] LABIA [id number] [place] [address] [place] MCH (RBC) [Entitic mass] 30.1 pg Normal 26.0-34.0 [facility] Comment on above: Order Comment: Speci men Type: BLOOD SPECIMENOrdering Facility: [facility] Address: [address] [place] [address] Performed By: #### 5 7021-8 ####[facility] LABIA [id number] [place] [address] [place] MCHC (RBC) [Mass/Vol] 34.0 g/dL Normal 30.5-36.0 [facility] Comment on above: Order Comment: Speci men Type: BLOOD SPECIMENOrdering Facility: [facility] Address: [address] [place] [address] Performed By: #### 5 7021-8 ####[facility] LABIA [id number] [place] [address] [place] MCV (RBC) [Entitic vol] 88.5 fL Normal 80.0-100.0 [facility] Comment on above: Order Comment: Speci men Type: BLOOD SPECIMENOrdering Facility: [facility] Address: [address] [place] [address] Performed By: #### 5 7021-8 ####[facility] LABIA [id number] [place] [address] [place] Monocytes (Bld) [#/Vol] 0.89 10*3/uL High <0.87 [facility] Comment on above: Order Comment: Speci men Type: BLOOD SPECIMENOrdering Facility: [facility] Address: [address] [place] [address] Performed By: #### 5 7021-8 ####[facility] LABCLIA [id number] [address] [address] [place] Monocytes/100 WBC (Bld) 6.9 % Normal [facility] Comment on above: Order Comment: Speci men Type: BLOOD SPECIMENOrdering Facility: [facility] Address: [address] [place] [address] Performed By: #### 5 7021-8 ####[facility] LABCLIA [id number] [address] [address] [place] Neutrophils (Bld) [#/Vol] 8.83 10*3/uL High 1.45-7.50 [facility] Comment on above: Order Comment: Speci men Type: BLOOD SPECIMENOrdering Facility: [facility] Address: [address] [place] [address] Performed By: #### 5 7021-8 ####[facility] LABCLIA [id number] [address] [address] [place] Neutrophils/100 WBC (Bld) 68.2 % Normal [facility] Comment on above: Order Comment: Speci men Type: BLOOD SPECIMENOrdering Facility: [facility] Address: [address] [place] [address] Performed By: #### 5 7021-8 ####[facility] LABCLIA [id number] [address] [address] [place] Nucleated RBC (Bld) [#/Vol] 10*3/uL Normal <0.01 [facility] Comment on above: Order Comment: Speci men Type: BLOOD SPECIMENOrdering Facility: [facility] Address: [address] [place] [address] Performed By: #### 5 7021-8 ####[facility] LABCLIA [id number] [address], [place] [address] [place] Nucleated RBC/100 WBC (Bld) [Ratio] 0.0 /[address] [facility] Comment on above: Order Comment: Speci men Type: BLOOD SPECIMENOrdering Facility: [facility] Address: [address] [place] [address] Performed By: #### 5 7021-8 ####[facility] LABIA [id number] [address], [place] [address] [place] Platelet mean volume (Bld) [Entitic vol] 9.8 fL Normal 9.0-12.7 [facility] Comment on above: Order Comment: Speci men Type: BLOOD SPECIMENOrdering Facility: [facility] Address: [address] [place] [address] Performed By: #### 5 7021-8 ####[facility] LABIA [id number] [place] [address] [place] Platelets (Bld) [#/Vol] 407 10*3/uL High 150-400 [facility] Comment on above: Order Comment: Speci men Type: BLOOD SPECIMENOrdering Facility: [facility] Address: [address] [place] [address] Performed By: #### 5 7021-8 ####[facility] LABIA [id number] [place] [address] [place] RBC (Bld) [#/Vol] 4.69 10*6/uL Normal 3.90-5.20 [facility] Comment on above: Order Comment: Speci men Type: BLOOD SPECIMENOrdering Facility: [facility] Address: [address] [place] [address] Performed By: #### 5 7021-8 ####[facility] LABIA [id number] [place] [id number] [place] WBC (Bld) [#/Vol] 12.93 10*3/uL High 3.70-11.00 [facility] Comment on above: Order Comment: Speci men Type: BLOOD SPECIMENOrdering Facility: [facility] Address: [address] [place] [address] Performed By: #### 5 7021-8 ####[facility] LABCLIA [id number] [place] [address] [place] Urinalysis complete panel (U )on 04-28-2025 Bacteria LM.HPF (Urine sed) [#/Area] Negative Normal Negative [facility] Comment on above: Order Comment: Speci men Type: URINE SPECIMENOrdering Facility: [facility] Address: [address] [place] [address] Performed By: #### 2 4356-8 ####[facility] LABCLIA [id number] [place] [address] [place] Bilirubin Ql (U) Negative Normal Negative [facility] Comment on above: Order Comment: Speci men Type: URINE SPECIMENOrdering Facility: [facility] Address: [address] [place] [address] Performed By: #### 2 4356-8 ####[facility] LABCLIA [id number] [place] [address] [place] Clarity (Unsp spec) Clear Normal Clear [facility] Comment on above: Order Comment: Speci men Type: URINE SPECIMENOrdering Facility: [facility] Address: [address] [place] [address] Performed By: #### 2 4356-8 ####[facility] LABCLIA [id number] [place] [address] [place] Color (U) Yellow Normal Yellow [facility] Comment on above: Order Comment: Speci men Type: URINE SPECIMENOrdering Facility: [facility] Address: [address] [place] [address] Performed By: #### 2 4356-8 ####[facility] LABCLIA [id number] [address], [address] [place] Epithelial cells LM.HPF (Urine sed) [#/Area] Few Normal [facility] Comment on above: Order Comment: Speci men Type: URINE SPECIMENOrdering Facility: [facility] Address: [address] [place] [address] Performed By: #### 2 4356-8 ####[facility] LABCLIA [id number] [address], [address] [place] Glucose Test strip (U) [Mass/Vol] 1+ Abnormal Negative [facility] Comment on above: Order Comment: Speci men Type: URINE SPECIMENOrdering Facility: [facility] Address: [address] [place] [address] Performed By: #### 2 4356-8 ####[facility] LABCLIA [id number] [address], [place] [address] [place] Hemoglobin Ql (U) Negative Normal Negative [facility] Comment on above: Order Comment: Speci men Type: URINE SPECIMENOrdering Facility: [facility] Address: [address] [place] [address] Performed By: #### 2 4356-8 ####[facility] LABCLIA [id number] [place] [id number] [place] Hyaline casts (Urine sed) [#/Area] 0 /[LPF] Normal 0 /LPF [facility] Comment on above: Order Comment: Speci men Type: URINE SPECIMENOrdering Facility: [facility] Address: [address] [place] [address] Performed By: #### 2 4356-8 ####[facility] LABCLIA [id number] [address], [facility]95 [place] Ketones Ql (U) Negative Normal Negative [facility] Comment on above: Order Comment: Speci men Type: URINE SPECIMENOrdering Facility: [facility] Address: [address] [place] [address] Performed By: #### 2 4356-8 ####[facility] LABCLIA [id number] [address] [place] [address] [place] Leukocyte esterase Test strip Ql (U) Negative Normal Negative [facility] Comment on above: Order Comment: Speci men Type: URINE SPECIMENOrdering Facility: [facility] Address: [address] [place] [address] Performed By: #### 2 4356-8 ####[facility] LABCLIA [id number] [place] [address] [place] Nitrite Ql (U) Negative Normal Negative [facility] Comment on above: Order Comment: Speci men Type: URINE SPECIMENOrdering Facility: [facility] Address: [address] [place] [address] Performed By: #### 2 4356-8 ####[facility] LABCLIA [id number] [place] [id number] [place] pH (U) 5.5 [pH] Normal 5.0-8.0 [facility] Comment on above: Order Comment: Speci men Type: URINE SPECIMENOrdering Facility: [facility] Address: [address] [place] [address] Performed By: #### 2 4356-8 ####[facility] LABCLIA [id number] [address], [facility]95 [place] Protein (U) [Mass/Vol] Negative Normal Negative [facility] Comment on above: Order Comment: Speci men Type: URINE SPECIMENOrdering Facility: [facility] Address: [address] [place] [address] Performed By: #### 2 4356-8 ####[facility] LABCLIA [id number] [address], [facility]95 [place] RBC LM.HPF (Urine sed) [#/Area] 0-2 /HPF Normal 0-2 /HPF [facility] Comment on above: Order Comment: Speci men Type: URINE SPECIMENOrdering Facility: [facility] Address: [address] [place] [address] Performed By: #### 2 4356-8 ####[facility] LABIA [id number] [place] [address] [place] Specific gravity (U) [Rel density] 1.017 Normal 1.005-1.030 [facility] Comment on above: Order Comment: Speci men Type: URINE SPECIMENOrdering Facility: [facility] Address: [address] [place] [address] Performed By: #### 2 4356-8 ####[facility] LABIA [id number] [address] Urobilinogen Ql (U) 0.2 EU/dL Normal 0.2-1.0 EU/dL [facility] Comment on above: Order Comment: Speci men Type: URINE SPECIMENOrdering Facility: [facility] Address: [address] [place] [address] Performed By: #### 2 4356-8 ####[facility] LABIA [id number] [address] [place] WBC LM.HPF (Urine sed) [#/Area] 0-5 /HPF Normal 0-5 /HPF [facility] Comment on above: Order Comment: Speci men Type: URINE SPECIMENOrdering Facility: [facility] Address: [address] [place] [address] Performed By: #### 2 4356-8 ####[facility] LABIA [id number] [place] [id number] [place] ALBUMIN/CREATININE RATIO, UR INEon 04-18-2025 Albumin DL <= 20 mg/L (U) [Mass/Vol] mg/L mg/L [facility] Albumin/Creatinine (U) [Mass ratio] mg/g NINF - 30 mg/g [facility] Comment on above: Adult Male and Femal e Nephrotic Criteria: <30 mg/g is considered normal to mildly increased 30-300 mg/g is considered moderately increased >300 mg/g is considered severely increased KDIGO. (2013). KDIGO 2012 Clinical Practice Guideline for the Evaluation and Management of Chronic Kidney Disease. Official Journal of the International Society of Nephrology, 3(1), 1-150. Creatinine (U) [Mass/Vol] 122.8 mg/dL 20.0 - 300.0 mg/dL [facility] Albumin DL <= 20 mg/L (U) [Mass/Vol] mg/dL Normal [facility] Comment on above: Order Comment: Speci men Type: URINE SPECIMENOrdering Facility: [facility] Address: [address] [place] [address] Performed By: #### U ACR ####[facility] LABCLIA [id number] [address] [place] [facility] Albumin/Creatinine (U) [Mass ratio] <10 Normal <30 [facility] Comment on above: Order Comment: Speci men Type: URINE SPECIMENOrdering Facility: [facility] Address: [address] [place] [address] Result Comment: Adul t Male and Female Nephrotic Criteria: <30 mg/g is considered normal to mildly increased 30-300 mg/g is considered moderately increased >300 mg/g is considered severely increased KDIGO. (2013). KDIGO 2012 Clinical Practice Guideline for the Evaluation and Management of Chronic Kidney Disease. Official Journal of the International Society of Nephrology, 3(1), 1-150. Performed By: #### U ACR ####[facility] LABCLIA [id number] [address] [place] Creatinine (U) [Mass/Vol] 122.8 mg/dL Normal 20.0-300.0 [facility] Comment on above: Order Comment: Speci men Type: URINE SPECIMENOrdering Facility: [facility] Address: [address] [place] [address] Performed By: #### U ACR ####[facility] LABCLIA [id number] [facility] [id number] [place] [address] [place] CBC W Auto Differential pane l (Bld)on 04-18-2025 Basophils (Bld) [#/Vol] 0.08 10*3/uL [facility] Basophils/100 WBC (Bld) 0.6 % C [facility] Differential cell count method Nom (Bld) Auto [facility] Eosinophils (Bld) [#/Vol] 0.14 10*3/uL [facility] Eosinophils/100 WBC (Bld) 1 % [facility] Erythrocyte distribution width (RBC) [Ratio] 12.8 % 11.5 - 15.0 % [facility] Hematocrit (Bld) [Volume fraction] 42.2 % 36.0 - 46.0 % [facility] Hemoglobin (Bld) [Mass/Vol] 14.3 g/dL 11.5 - 15.5 g/dL [facility] Immature granulocytes (Bld) [#/Vol] 0.1 10*3/uL High [facility] Immature granulocytes/100 WBC (Bld) 0.7 % [facility] Interpretation and review of laboratory results Abnormal [facility] Lymphocytes (Bld) [#/Vol] 2.02 10*3/uL [facility] Lymphocytes/100 WBC (Bld) 14.3 % [facility] MCH (RBC) [Entitic mass] 29.4 pg 26.0 - 34.0 pg [facility] MCHC (RBC) [Mass/Vol] 33.9 g/dL 30.5 - 36.0 g/dL [facility] MCV (RBC) [Entitic vol] 86.8 fL 80.0 - 100.0 fL [facility] Monocytes (Bld) [#/Vol] 0.9 10*3/uL High [facility] Monocytes/100 WBC (Bld) 6.4 % C [facility] Neutrophils (Bld) [#/Vol] 10.93 10*3/uL High [facility] Neutrophils/100 WBC (Bld) 77 % [facility] Nucleated RBC (Bld) [#/Vol] [facility] Nucleated RBC/100 WBC (Bld) [Ratio] 0 % /100 WBC [facility] Platelet mean volume (Bld) [Entitic vol] 9.8 fL 9.0 - 12.7 fL [facility] Platelets (Bld) [#/Vol] 392 10*3/uL [facility] RBC (Bld) [#/Vol] 4.86 10*6/uL 3.90 - 5.2 0 m/uL [facility] WBC (Bld) [#/Vol] 14.17 10*3/uL High [facility] Basophils (Bld) [#/Vol] 0.08 10*3/uL Normal <0.11 [facility] Comment on above: Order Comment: Speci men Type: BLOOD SPECIMENOrdering Facility: [facility] Address: [address] [place] [address] Performed By: #### 5 7021-8 ####[facility] LABCLIA [id number] [place] [address] [place] Basophils/100 WBC (Bld) 0.6 % Normal C [facility] Comment on above: Order Comment: Speci men Type: BLOOD SPECIMENOrdering Facility: [facility] Address: [address] [place] [address] Performed By: #### 5 7021-8 ####[facility] LABCLIA [id number] [place] [address] [place] Differential cell count method Nom (Bld) Auto Normal [facility] Comment on above: Order Comment: Speci men Type: BLOOD SPECIMENOrdering Facility: [facility] Address: [address] [place] [address] Performed By: #### 5 7021-8 ####[facility] LABCLIA [id number] [place] [address] [place] Eosinophils (Bld) [#/Vol] 0.14 10*3/uL Normal <0.46 [facility] Comment on above: Order Comment: Speci men Type: BLOOD SPECIMENOrdering Facility: [facility] Address: [address] [place] [address] Performed By: #### 5 7021-8 ####[facility] LABCLIA [id number] [place] [address] [place] Eosinophils/100 WBC (Bld) 1.0 % Normal [facility] Comment on above: Order Comment: Speci men Type: BLOOD SPECIMENOrdering Facility: [facility] Address: [address] [place] [address] Performed By: #### 5 7021-8 ####[facility] LABCLIA [id number] [place] [address] [place] Erythrocyte distribution width (RBC) [Ratio] 12.8 % Normal 11.5-15.0 [facility] Comment on above: Order Comment: Speci men Type: BLOOD SPECIMENOrdering Facility: [facility] Address: [address] [place] [address] Performed By: #### 5 7021-8 ####[facility] LABIA [id number] [place] [address] [place] Hematocrit (Bld) [Volume fraction] 42.2 % Normal 36.0-46.0 [facility] Comment on above: Order Comment: Speci men Type: BLOOD SPECIMENOrdering Facility: [facility] Address: [address] [place] [address] Performed By: #### 5 7021-8 ####[facility] LABCLIA [id number] [place] [address] [place] Hemoglobin (Bld) [Mass/Vol] 14.3 g/dL Normal 11.5-15.5 [facility] Comment on above: Order Comment: Speci men Type: BLOOD SPECIMENOrdering Facility: [facility] Address: [address] [place] [address] Performed By: #### 5 7021-8 ####[facility] LABIA [id number] [place] [address] [place] Immature granulocytes (Bld) [#/Vol] 0.10 10*3/uL High <0.10 [facility] Comment on above: Order Comment: Speci men Type: BLOOD SPECIMENOrdering Facility: [facility] Address: [address] [place] [address] Performed By: #### 5 7021-8 ####[facility] LABCLIA [id number] [place] [address] [place] Immature granulocytes/100 WBC (Bld) 0.7 % Normal [facility] Comment on above: Order Comment: Speci men Type: BLOOD SPECIMENOrdering Facility: [facility] Address: [address] [place] [address] Performed By: #### 5 7021-8 ####[facility] LABCLIA [id number] [place] [address] [place] Lymphocytes (Bld) [#/Vol] 2.02 10*3/uL Normal 1.00-4.00 [facility] Comment on above: Order Comment: Speci men Type: BLOOD SPECIMENOrdering Facility: [facility] Address: [address] [place] [address] Performed By: #### 5 7021-8 ####[facility] LABCLIA [id number] [place] [address] [place] Lymphocytes/100 WBC (Bld) 14.3 % Normal [facility] Comment on above: Order Comment: Speci men Type: BLOOD SPECIMENOrdering Facility: [facility] Address: [address] [place] [address] Performed By: #### 5 7021-8 ####[facility] LABIA [id number] [place] [address] [place] MCH (RBC) [Entitic mass] 29.4 pg Normal 26.0-34.0 [facility] Comment on above: Order Comment: Speci men Type: BLOOD SPECIMENOrdering Facility: [facility] Address: [address] [place] [address] Performed By: #### 5 7021-8 ####[facility] LABCLIA [id number] [place] [address] [place] MCHC (RBC) [Mass/Vol] 33.9 g/dL Normal 30.5-36.0 [facility] Comment on above: Order Comment: Speci men Type: BLOOD SPECIMENOrdering Facility: [facility] Address: [address] [place] [address] Performed By: #### 5 7021-8 ####[facility] LABCLIA [id number] [place] [address] [place] MCV (RBC) [Entitic vol] 86.8 fL Normal 80.0-100.0 C [facility] Comment on above: Order Comment: Speci men Type: BLOOD SPECIMENOrdering Facility: [facility] Address: [address] [place] [address] Performed By: #### 5 7021-8 ####[facility] LABCLIA [id number] [place] [address] [place] Monocytes (Bld) [#/Vol] 0.90 10*3/uL High <0.87 [facility] Comment on above: Order Comment: Speci men Type: BLOOD SPECIMENOrdering Facility: [facility] Address: [address] [place] [address] Performed By: #### 5 7021-8 ####[facility] LABCLIA [id number] [place] [address] [place] Monocytes/100 WBC (Bld) 6.4 % Normal C [facility] Comment on above: Order Comment: Speci men Type: BLOOD SPECIMENOrdering Facility: [facility] Address: [address] [place] [address] Performed By: #### 5 7021-8 ####[facility] LABCLIA [id number] [place] [id number] [place] Neutrophils (Bld) [#/Vol] 10.93 10*3/uL High 1.45-7.50 [facility] Comment on above: Order Comment: Speci men Type: BLOOD SPECIMENOrdering Facility: [facility] Address: [address] [place] [address] Performed By: #### 5 7021-8 ####[facility] LABCLIA [id number] [place] [address] [place] Neutrophils/100 WBC (Bld) 77.0 % Normal [facility] Comment on above: Order Comment: Speci men Type: BLOOD SPECIMENOrdering Facility: [facility] Address: [address] [place] [address] Performed By: #### 5 7021-8 ####[facility] LABCLIA [id number] [place] [address] [place] Nucleated RBC (Bld) [#/Vol] 10*3/uL Normal <0.01 [facility] Comment on above: Order Comment: Speci men Type: BLOOD SPECIMENOrdering Facility: [facility] Address: [address] [place] [address] Performed By: #### 5 7021-8 ####[facility] LABCLIA [id number] [place] [address] [place] Nucleated RBC/100 WBC (Bld) [Ratio] 0.0 /[address] [facility] Comment on above: Order Comment: Speci men Type: BLOOD SPECIMENOrdering Facility: [facility] Address: [address] [place] [address] Performed By: #### 5 7021-8 ####[facility] LABCLIA [id number] [place] [address] [place] Platelet mean volume (Bld) [Entitic vol] 9.8 fL Normal 9.0-12.7 [facility] Comment on above: Order Comment: Speci men Type: BLOOD SPECIMENOrdering Facility: [facility] Address: [address] [place] [address] Performed By: #### 5 7021-8 ####[facility] LABIA [id number] [place] [address] [place] Platelets (Bld) [#/Vol] 392 10*3/uL Normal 150-400 [facility] Comment on above: Order Comment: Speci men Type: BLOOD SPECIMENOrdering Facility: [facility] Address: [address] [place] [address] Performed By: #### 5 7021-8 ####[facility] LABIA [id number] [place] [address] [place] RBC (Bld) [#/Vol] 4.86 10*6/uL Normal 3.90-5.20 [facility] Comment on above: Order Comment: Speci men Type: BLOOD SPECIMENOrdering Facility: [facility] Address: [address] [place] [address] Performed By: #### 5 7021-8 ####[facility] [id number] [place] [address] [place] WBC (Bld) [#/Vol] 14.17 10*3/uL High 3.70-11.00 [facility] Comment on above: Order Comment: Speci men Type: BLOOD SPECIMENOrdering Facility: [facility] Address: [address] [place] [address] Performed By: #### 5 7021-8 ####[facility] [id number] [place] [id number] [facility] [place] CNOVon 04-18-2025 CNOV Office Visit (FAMPWS ) DEONTE BLANCO ([id number]) 1955 F Date Time Provider Department 04/18/25 8:20 AM LILIANA BENNETT During your visit today, we recorded the following information about you: Pulse Blood pressure Weight 76/minute 120/70 83.5 kg Liliana Bennett APRN.CNP 04/18/2025 9:11 AM Addendum Get labs done on way out today Start the 25 units of lantus daily Continue monitoring and logging your blood sugars Watch drinking the electrolytes packets specifically potassium in it Get your mammogram scheduled Liliana Bennett APRN.CNP 04/18/2025 1:53 PM Signed This is a 69 year old female who presents today with: Hyperglycemia, recent ED visit, anxiety over diabetes management HISTORY OF PRESENT ILLNESS: Diabetes Mellitus: - Recent ED visit due to hyperglycemia; received fast acting insulin and fluids. - Concerns about fluctuating blood glucose levels; reports feeling tired and wiped out by the regimen. - Recent increase in Trulicity to 1.5 mg weekly at last visit, but just that dose recently - Hesitant to increase Lantus dosage beyond 2 units due to previous management by Dr. Farrar. This provider went over her dose history with her, showing 4-6unit increases at month-3month increments - Interested in using a continuous glucose monitor (CGM) as she has extreme anxiety over her blood sugars and is terried of doing too much and being low and living alone - discussed labs in hospital, vital signs Hyponatremia: - Chronic low sodium levels; managed by Dr. Overton, a hypertension specialist in [place] who she sees annually and recently saw with no changes - Recent sodium level was low during ED visit Hyperkalemia: - Recent high potassium level during ED visit. -she's on spironolactone twice daily - Consuming electrolyte powders in drinks which contain potassium. States she did have a racing heart at the hospital and very anxious Leukocytosis WBC above 20, she denies any burning, frequency with urination Denies any fevers, body aches ER visit following Dr Isaac visit: Discharge Summary Note Author Berry Waldrop [facility] Note Date/Time Trupti 19th, 2025 7:16pm Patient case was signed out to me to follow-up on a repeat BMP which was obtained and reviewed which showed a sodium 130, calcium normal 3.5, creatinine was noted be 0.69. Patient anion gap now normal at 15. On reevaluation of the patient she is feeling better she would like to go home at this point time. Patient was advised to keep a close eye on her blood pressure as she states that her blood pressure been running normal. She was advised to call her doctor if it is persistently running high. She is advised to use the Zofran that she already has at home as prescribed as well. She is encouraged return with worsening symptoms or other concerns. She is agreeable this plan as well as her family bedside all question concerns answered she was discharged home in stable condition. WBC 21, plt 451, Na 127, k+5.2, glucose 364, beta hydroxybutric acid 0.4, UA showed 1000 glucose and 50 ketones, negative nitrates, 1+ bacteria, blood and protein + Arterial blood gas concern for possible DKA pH 7.58, co2 21, p02 89, 98%RA She did consult with endocrinology but at last visit said she preferred not to go back This provider attempted to increase lantus with last lab results and patient refused wanting Dr Farrar's input at her next visit BS 169 this morning. POC in todays office visit following visit per her request, 280. Current diabetic meds: Lantus 20units daily in morning Trulicity 1.5mg weekly Glimeperide 2mg twice daily with meals HTN Controlled usually, was elevated at technical professional and ER visit Likely also triggered by anxiety over diabetes management PAST MEDICAL HISTORY: PAST MEDICAL HISTORY Diagnosis [...] Antibiotics) MEDICATIONS Current Outpatient Medications Medication Sig blood sugar diagnostic (BLOOD GLUC (more content not included)... Normal [facility] Comprehensive metabolic 2000 panelon 04-18-2025 Albumin [Mass/Vol] 4.1 g/dL 3.9 - 4.9 g/dL [facility] ALP [Catalytic activity/Vol] 116 U/L 34 - 123 U/L [facility] ALT [Catalytic activity/Vol] 13 U/L 7 - 38 U/L [facility] Anion gap [Moles/Vol] 14 mmol/L 8 - 15 mmol/L [facility] AST [Catalytic activity/Vol] 19 U/L 13 - 35 U/L [facility] Bilirubin [Mass/Vol] 0.7 mg/dL 0.2 - 1 .3 mg/dL [facility] Calcium [Mass/Vol] 9.9 mg/dL 8.5 - 10. 2 mg/dL [facility] Chloride [Moles/Vol] 95 mmol/L Low 98 - 10 7 mmol/L [facility] CO2 [Moles/Vol] 23 mmol/L 22 - 30 mmol/L [facility] Creatinine [Mass/Vol] 0.77 mg/dL 0.58 - 0.96 mg/dL [facility] GFR/1.73 sq M.predicted among non-blacks MDRD (S/P/Bld) [Vol rate/Area] 84 mL/min/{1.73_m2} - PINF [facility] Comment on above: Estimated Glomerular Filtration Rate [...] not accurately reflect actual GFR. Glucose [Mass/Vol] 277 mg/dL High 74 - 99 mg/dL [facility] Comment on above: The [place] Diabete s Association (ADA) provides guidance for [...] Standards of Medical Care in Diabetes 2016, [place] [employer]. Diabetes Care. 2016.39(Suppl 1). Interpretation and review of laboratory results Abnormal [facility] Potassium [Moles/Vol] 4 mmol/L 3.7 - 5.1 mmol/L [facility] Protein [Mass/Vol] 7.2 g/dL 6.3 - 8.0 g/dL [facility] Sodium [Moles/Vol] 132 mmol/L Low 136 - 144 mmol/L [facility] Urea nitrogen [Mass/Vol] 19 mg/dL 7 - 21 mg/dL [facility] Albumin [Mass/Vol] 4.1 g/dL Normal 3.9-4.9 [facility] Comment on above: Order Comment: Speci men Type: BLOOD SPECIMENOrdering Facility: [facility] Address: [address] [place] [address] Performed By: #### 2 4323-8 ####[facility] LABCLIA [id number] [place] [address] [place] ALP [Catalytic activity/Vol] 116 U/L Normal 34-123 [facility] Comment on above: Order Comment: Speci men Type: BLOOD SPECIMENOrdering Facility: [facility] Address: [address] [place] [address] Performed By: #### 2 4323-8 ####[facility] LABCLIA [id number] [place] [id number] [place] ALT [Catalytic activity/Vol] 13 U/L Normal 7-38 [facility] Comment on above: Order Comment: Speci men Type: BLOOD SPECIMENOrdering Facility: [facility] Address: [address] [place] [address] Performed By: #### 2 4323-8 ####[facility] LABCLIA [id number] [facility] [address] [address] [place] Anion gap [Moles/Vol] 14 mmol/L Normal 8-15 [facility] Comment on above: Order Comment: Speci men Type: BLOOD SPECIMENOrdering Facility: [facility] Address: [address] [place] [address] Performed By: #### 2 4323-8 ####[facility] LABCLIA [id number] [facility] [place] [id number] [place] AST [Catalytic activity/Vol] 19 U/L Normal 13-35 [facility] Comment on above: Order Comment: Speci men Type: BLOOD SPECIMENOrdering Facility: [facility] Address: [address] [place] [address] Performed By: #### 2 4323-8 ####[facility] LABCLIA [id number] [place] [address] [place] Bilirubin [Mass/Vol] 0.7 mg/dL Normal 0.2-1.3 [facility] Comment on above: Order Comment: Speci men Type: BLOOD SPECIMENOrdering Facility: [facility] Address: [address] [place] [address] Performed By: #### 2 4323-8 ####[facility] LABCLIA [id number] [facility] [place] [id number] [place] Calcium [Mass/Vol] 9.9 mg/dL Normal 8.5-10.2 [facility] Comment on above: Order Comment: Speci men Type: BLOOD SPECIMENOrdering Facility: [facility] Address: [address] [place], [place] [id number] Performed By: #### 2 4323-8 ####[facility] LABCLIA [id number] [facility] [place] [id number] [place] Chloride [Moles/Vol] 95 mmol/L Low 98-107 [facility] Comment on above: Order Comment: Speci men Type: BLOOD SPECIMENOrdering Facility: [facility] Address: [address] [place] [address] Performed By: #### 2 4323-8 ####[facility] LABCLIA [id number] [place] [id number] [place] CO2 [Moles/Vol] 23 mmol/L Normal 22-30 [facility] Comment on above: Order Comment: Speci men Type: BLOOD SPECIMENOrdering Facility: [facility] Address: [address] [place] [address] Performed By: #### 2 4323-8 ####[facility] [id number] [address] STATES OF [facility] Creatinine [Mass/Vol] 0.77 mg/dL Normal 0.58-0.96 [facility] Comment on above: Order Comment: Speci men Type: BLOOD SPECIMENOrdering Facility: [facility] Address: [address] [place] [address] Performed By: #### 2 4323-8 ####[facility] LABIA [id number] [place] [address] [place] eGFRcr SerPlBld CKD-EPI 2020 84 mL/min/1.73m??? Normal >=60 [facility] Comment on above: Order Comment: Speci men Type: BLOOD SPECIMENOrdering Facility: [facility] Address: [address] [place] [address] Result Comment: Ana Paula mated Glomerular Filtration [...] actual GFR. Performed By: #### 2 4323-8 ####[facility] LABCLIA [id number] [address] [address] [place] Glucose [Mass/Vol] 277 mg/dL High 74-99 [facility] Comment on above: Order Comment: Speci men Type: BLOOD SPECIMENOrdering Facility: [facility] Address: [address] [place] [address] Result Comment: The [place] Diabetes Association (ADA) provides guidance for cutoff [...] Standards of Medical Care in Diabetes 2016, [place] [employer]. Diabetes Care. 2016.39(Suppl 1). Performed By: #### 2 4323-8 ####[facility] LABCLIA [id number] [address] [address] [place] Potassium [Moles/Vol] 4.0 mmol/L Normal 3.7-5.1 [facility] Comment on above: Order Comment: Speci men Type: BLOOD SPECIMENOrdering Facility: [facility] Address: [address] [place], [place] [id number] Performed By: #### 2 4323-8 ####[facility] LABCLIA [id number] [address] [address] [place] Protein [Mass/Vol] 7.2 g/dL Normal 6.3-8.0 [facility] Comment on above: Order Comment: Speci men Type: BLOOD SPECIMENOrdering Facility: [facility] Address: [address] [place], [place] [address] Performed By: #### 2 4323-8 ####[facility] LABCLIA [id number] [place] [id number] [place] Sodium [Moles/Vol] 132 mmol/L Low 136-144 [facility] Comment on above: Order Comment: Speci men Type: BLOOD SPECIMENOrdering Facility: [facility] Address: [address] [place] [address] Performed By: #### 2 4323-8 ####[facility] LABCLIA [id number] [place] [address] [place] Urea nitrogen [Mass/Vol] 19 mg/dL Normal 7- [facility] Comment on above: Order Comment: Speci men Type: BLOOD SPECIMENOrdering Facility: [facility] Address: [address] [place] [address] Performed By: #### 2 4323-8 ####[facility] LABCLIA [id number] [place] [id number] [place] GLUCOSE, BLOOD (POC)on 04-18 Glucose [Mass/Vol] 280 mg/dL Abnormal 74 - 99 mg/dL [facility] Comment on above: Location:[address], [address] The Accu-Chek Inform II glucose meter has not been approved for testing on patients receiving intensive medical intervention or therapy and results from this point of care glucose test should not be used for patient management decisions in these cases. Inaccurate results may also occur from other interfering factors, such as N-acetylcysteine (blood concentrations of greater than 5mg/dL), galactose, extremes of hematocrit (<10 or >65), or high doses of ascorbic acid (vitamin C) greater than 3mg/dL. Consider alternate testing mechanisms (e.g. core lab, blood gas instrument) in the above situations. Interpretation and review of laboratory results Abnormal [facility] CNPMarii 04-17-2025 DEREKN Telephone [facility] DEONTE BLANCO ([id number]) 1955 F Date Time Provider Department 04/17/25 PREET FARRAR During your visit today, we recorded the following information about you: Josie Starks RN 04/17/2025 12:28 PM Signed FYI for appt previously scheduled for 04/18/2025. Patient calls to review care advice for high blood sugars with concern that she is not able to get blood sugar below 260. Reviewed diet, medications, and when to return to ER. Patient reports that she is still taking diabetic medications as instructed to do by Dr. Farrar. She did not increase long acting insulin to 25 units and is not taking it in the evening. Patient reports that she was scared to make the adjustments without talking with Dr. Farrar first. Patient emotional as she is not sure what to do it terms of diet as she is doing everything as instructed and she is not interested in going back to the ER. Triage encounter from 04/16/2025 as well. Josie Starks RN Allergies As of Date: 04/17/2025 Noted Allergy Reaction ASA (SALICYLATES) 01/05/2006 4 - Hives 8 - GI Upset Comments: As a child GLUTEN 10/17/2016 5 - Intolerance METFORMIN 8 - GI Upset 9 - Itching PREDNISONE 10/02/2012 9 - Itching SULFA (SULFONAMIDE ANTIBIOTICS) 12/29/2005 2 - Rash Date Reviewed: 04/16/2025 Reviewed by: Darline Ng RN - Fully Assessed Reason for Visit: Patient Update [1234] Prescriptions as of 04/17/2025 - blood sugar diagnostic (BLOOD GLUCOSE TEST) [...] 2 DM - Uncontrolled Insulin: Yes - Insulin [place], Disposable, (BD ULTRA-FINE MARIA T PEN NEEDLE) [...] Insulin: No Problem List As Of Date 04/17/2025 Noted Resolved Diabetes mellitus type 2, controlled, [...] 12/09/2023 Other ulcerative colitis without complications *12/09/2023 Diabet (more content not included)... Normal [facility] Absolute lymphocyte countOrd ered By: Berry Waldrop on 04-15-2025 Lymphocytes Auto (Unsp spec) [#/Vol] 2.26 10*3/uL 0.83-4.51 [facility] Absolute neutrophil countOrd ered By: Berry Waldrop on 04-15-2025 Neutrophils (Bld) [#/Vol] 17.1 10*3/uL High 2.0-7.7 [facility] Anion gap in Serum or Plasma Ordered By: Berry Waldrop on 04-15-2025 Anion gap [Moles/Vol] 15 mmol/L 5-15 [facility] Assessment of wrist artery p atency prior to arterial punctureOrdered By: Berry Waldrop on 04-15-2025 Arterial patency Wrist artery --pre arterial puncture Positive [facility] Automated lymphocyte count a s percentage of total leukocytesOrdered By: Berry Waldrop on 04-15-2025 Lymphocytes/100 WBC Auto (Unsp spec) 10.8 % Low 19-41 [facility] BUN/creatinine ratioOrdered By: Berry Waldrop on 04-15-2025 Urea nitrogen/Creatinine [Mass ratio] 30.7 mg/mg High 10- [facility] Basic Metabolic Profile (BMP )on 04-15-2025 BUN/CRE 30.7 RATIO High - [facility] Comment on above: Order Comment: Redra wn send after the liter of normal saline. Performed By: #### L 500.2500 ####[facility] [address] [place], [address] Calcium [Mass/Vol] 9.3 mg/dL Normal 7.6-11.0 [facility] Comment on above: Order Comment: Redra wn send after the liter of normal saline. Performed By: #### L 500.2500 ####[facility] [address] [place], [address] Chloride [Moles/Vol] 94 mmol/L Low 98-108 [facility] Comment on above: Order Comment: Redra wn send after the liter of normal saline. Performed By: #### L 500.2500 ####[facility] [address] [place], [address] CO2 [Moles/Vol] 21.1 mmol/L Normal 21.0-32.0 [facility] Comment on above: Order Comment: Redra wn send after the liter of normal saline. Performed By: #### L 500.2500 ####[facility] [address] [place], [address] Creatinine [Mass/Vol] 0.69 mg/dL Low 0.70-1.20 [facility] Comment on above: Order Comment: Redra wn send after the liter of normal saline. Performed By: #### L 500.2500 ####[facility] [address] [place], [address] ECRCL 62.82 ml/min Normal 50-250 [facility] Comment on above: Order Comment: Redra wn send after the liter of normal saline. Performed By: #### L 500.2500 ####[facility] [address] [place], [address] GAP 15 Normal 5-15 [facility] Comment on above: Order Comment: Redra wn send after the liter of normal saline. Performed By: #### L 500.2500 ####[facility] [address] [place], [address] GFR/1.73 sq M.predicted among non-blacks MDRD (S/P/Bld) [Vol rate/Area] 94 mL/min/{1.73_m2} Normal >60 [facility] Comment on above: Order Comment: Redra wn send after the liter of normal saline. Result Comment: mL/m in/1.73m2 CKD-EPI Creatinine Equation (2020) Performed By: #### L 500.2500 ####[facility] [address] [place], [address] Glucose [Mass/Vol] 264 mg/dL High 70-99 [facility] Comment on above: Order Comment: Redra wn send after the liter of normal saline. Performed By: #### L 500.2500 ####[facility] [address] [place], [address] Potassium [Moles/Vol] 3.5 mmol/L Normal 3.3-5.1 [facility] Comment on above: Order Comment: Redra wn send after the liter of normal saline. Result Comment: Hemo lysis present, Results??could be affected.?? Performed By: #### L 500.2500 ####[facility] [address] [place], [address] Sodium [Moles/Vol] 130 mmol/L Low 133-145 [facility] Comment on above: Order Comment: Redra wn send after the liter of normal saline. Performed By: #### L 500.2500 ####[facility] [address] [place], [address] Urea nitrogen [Mass/Vol] 21 mg/dL High 4-19 [facility] Comment on above: Order Comment: Redra wn send after the liter of normal saline. Performed By: #### L 500.2500 ####[facility] [address] [place], [address] BUN/CRE 27.9 RATIO High 10-20 [facility] Comment on above: Performed By: #### L 501.6901, L500.2500, L100.0100 ####[facility] [address] [place], [address] Calcium [Mass/Vol] 10.5 mg/dL Normal 7.6-11.0 [facility] Comment on above: Performed By: #### L 501.6901, L500.2500, L100.0100 ####[facility] [address] [place], [address] Chloride [Moles/Vol] 89 mmol/L Low 98-108 [facility] Comment on above: Performed By: #### L 501.6901, L500.2500, L100.0100 ####[facility] [address] [place], [address] CO2 [Moles/Vol] 20.4 mmol/L Low 21.0-32.0 [facility] Comment on above: Performed By: #### L 501.6901, L500.2500, L100.0100 ####[facility] [address] [place], [address] Creatinine [Mass/Vol] 1.06 mg/dL Normal 0.70-1.20 [facility] Comment on above: Performed By: #### L 501.6901, L500.2500, L100.0100 ####[facility] [address] [place], [address] GAP 18 High 5-15 [facility] Comment on above: Performed By: #### L 501.6901, L500.2500, L100.0100 ####[facility] [address] [place], [address] GFR/1.73 sq M.predicted among non-blacks MDRD (S/P/Bld) [Vol rate/Area] 57 mL/min/{1.73_m2} Low >60 [facility] Comment on above: Result Comment: mL/m in/1.73m2 CKD-EPI Creatinine Equation (2020) Performed By: #### L 501.6901, L500.2500, L100.0100 ####[facility] [address] [place], [address] Glucose [Mass/Vol] 364 mg/dL High 70-99 [facility] Comment on above: Performed By: #### L 501.6901, L500.2500, L100.0100 ####[facility] [address] [place], [address] Potassium [Moles/Vol] 5.2 mmol/L High 3.3-5.1 [facility] Comment on above: Result Comment: Hemo lysis present, Results??could be affected.?? Performed By: #### L 501.6901, L500.2500, L100.0100 ####[facility] [address] [place], [address] Sodium [Moles/Vol] 127 mmol/L Low 133-145 [facility] Comment on above: Performed By: #### L 501.6901, L500.2500, L100.0100 ####[facility] [address] [place], [address] Urea nitrogen [Mass/Vol] 30 mg/dL High 4-19 [facility] Comment on above: Performed By: #### L 501.6901, L500.2500, L100.0100 ####[facility] [address] [place], [address] Basophil percentageOrdered B y: Berry Waldrop on 04-15-2025 Basophils/100 WBC (Bld) 0.4 % 0-1 [facility] Bedside Glucoseon 04-15-2025 FINGERSTICK GLU 260 mg/dL High 74-106 [facility] Comment on above: Result Comment: CARIN GEMENT OF PATIENT CARE PER NURSING PROTOCOL Performed By: #### L 501.080 ####[facility] [address] [place], [address] FINGERSTICK GLU 269 mg/dL High 74-106 [facility] Comment on above: Result Comment: CARIN GEMENT OF PATIENT CARE PER NURSING PROTOCOL Performed By: #### L 501.080 ####[facility] [address] [place], [address] Beta-Hydroxbytyrateon 2024 BETA-HYDROXYBUT 0.4 mmol/L High 0.0-0.3 [facility] Comment on above: Performed By: #### L 501.6901, L500.2500, L100.0100 ####[facility] [address] [place], [address] Beta-hydroxybutyrateOrdered By: Berry Waldrop on 04-15-2025 Beta hydroxybutyrate [Mass/Vol] 0.4 mmol/L High 0.0-0.3 [facility] Bilirubin Test strip Ql (U)O rdered By: Berry Waldrop on 04-15-2025 Bilirubin Ql (U) Negative Negative [facility] Blood Gases by CPSon 025 BEATRIZ TEST Positive Normal [facility] Comment on above: Performed By: #### L 9000.0800 ####[facility] [address] [place], [address] Base excess Calc (Bld) [Moles/Vol] -1 mmol/L Normal -2 to +2 [facility] Comment on above: Performed By: #### L 9000.0800 ####[facility] [address] [place], [address] Blood Gas Type ART Normal [facility] Comment on above: Performed By: #### L 9000.0800 ####[facility] [address] [place], [address] CO2 [Moles/Vol] 22 mmol/L Normal [facility] Comment on above: Performed By: #### L 9000.0800 ####[facility] [address] [place], [address] HCO3 (Bld) [Moles/Vol] 20.8 mmol/L Low 22-26 [facility] Comment on above: Performed By: #### L 9000.0800 ####[facility] [address] [place], [address] Mode Not entered Normal [facility] Comment on above: Performed By: #### L 9000.0800 ####[facility] [address] [place], [address] O2 Delivery Dev Room Air Normal [facility] Comment on above: Performed By: #### L 9000.0800 ####[facility] [address] [place], [address] pCO2 21.8 mmHg Low 35-45 [facility] Comment on above: Performed By: #### L 9000.0800 ####[facility] [address] [place], [address] pH (Bld) 7.59 [pH] High 7.35-7.45 [facility] Comment on above: Performed By: #### L 9000.0800 ####[facility] [address] [place], [address] PO2 89 mmHG Normal 75-100 [facility] Comment on above: Performed By: #### L 9000.0800 ####[facility] [address] [place], [address] SITE L Radial Normal [facility] Comment on above: Performed By: #### L 9000.0800 ####[facility] [address] [place], [address] SO2 98 Normal 95-99 [facility] Comment on above: Performed By: #### L 9000.0800 ####[facility] [address] [place], [address] Blood base excess determinat ionOrdered By: Berry Waldrop on 04-15-2025 Base excess Calc (BldV) [Moles/Vol] -1 mmol/L -2-2 [facility] Blood bicarbonate measuremen tOrdered By: Berry Waldrop on 04-15-2025 HCO3 (Bld) [Moles/Vol] 20.8 mmol/L Low 22-26 [facility] CBC W/Diff, Automatedon 03-28 Absolute Lymph 2.26 X10 3/uL Normal 0.83-4.51 [facility] Comment on above: Performed By: #### L 501.6901, L500.2500, L100.0100 ####[facility] [address] [place], [address] Absolute Neut 17.1 X10 3/uL High 2.0-7.7 [facility] Comment on above: Performed By: #### L 501.6901, L500.2500, L100.0100 ####[facility] [address] [place], [address] Basophils/100 WBC (Bld) 0.4 % Normal 0-1 [facility] Comment on above: Performed By: #### L 501.6901, L500.2500, L100.0100 ####[facility] [address] [place], [address] Eosinophils/100 WBC (Bld) 0.2 % Normal 0-5 [facility] Comment on above: Performed By: #### L 501.6901, L500.2500, L100.0100 ####[facility] [address] [place], [address] Erythrocyte distribution width (RBC) [Ratio] 12.8 % Normal 11.6-14.6 [facility] Comment on above: Performed By: #### L 501.6901, L500.2500, L100.0100 ####[facility] [address] [place], [address] Hematocrit (Bld) [Volume fraction] 45.4 % Normal 37-47 [facility] Comment on above: Performed By: #### L 501.6901, L500.2500, L100.0100 ####[facility] [address] [place], [address] Hemoglobin (Bld) [Mass/Vol] 16.3 g/dL High 12.0-15.0 [facility] Comment on above: Performed By: #### L 501.6901, L500.2500, L100.0100 ####[facility] [address] [place], [address] IG% 0.700 Normal 0.0-0.9 [facility] Comment on above: Result Comment: IG% - Immature Granulocytes (promyelocytes, myelocytes andmetamyelocytes) > 1% indicates that a LEFT SHIFT is Present. Performed By: #### L 501.6901, L500.2500, L100.0100 ####[facility] [address] [place], [address] Lymphocytes/100 WBC (Bld) 10.8 % Low 19-41 [facility] Comment on above: Performed By: #### L 501.6901, L500.2500, L100.0100 ####[facility] [address] [place], [address] MCH (RBC) [Entitic mass] 29.7 pg Normal 27.0-32.0 [facility] Comment on above: Performed By: #### L 501.6901, L500.2500, L100.0100 ####[facility] [address] [place], [address] MCHC (RBC) [Mass/Vol] 35.9 g/dL Normal 32-36 [facility] Comment on above: Performed By: #### L 501.6901, L500.2500, L100.0100 ####[facility] [address] [place], [address] MCV (RBC) [Entitic vol] 82.8 fL Normal 81-[address] [facility] Comment on above: Performed By: #### L 501.6901, L500.2500, L100.0100 ####[facility] [address] [place], [address] Monocytes/100 WBC (Bld) 6.5 % Normal 0-[address] [facility] Comment on above: Performed By: #### L 501.6901, L500.2500, L100.0100 ####[facility] [address] [place], [address] Neutrophils/100 WBC (Bld) 81.4 % High 47-70 [facility] Comment on above: Performed By: #### L 501.6901, L500.2500, L100.0100 ####[facility] [address] [place], [address] Nucleated RBC (Bld) [#/Vol] 0 10*3/uL Normal 0-5 [facility] Comment on above: Performed By: #### L 501.6901, L500.2500, L100.0100 ####[facility] [address] [place], [address] Platelet mean volume (Bld) [Entitic vol] 9.4 fL Normal 6.2-12.0 [facility] Comment on above: Performed By: #### L 501.6901, L500.2500, L100.0100 ####[facility] [address] [place], [address] Platelets (Bld) [#/Vol] 451 10*3/uL High 150-450 [facility] Comment on above: Performed By: #### L 501.6901, L500.2500, L100.0100 ####[facility] [address] [place], [address] RBC (Bld) [#/Vol] 5.48 10*6/uL High 4.2-5.4 [facility] Comment on above: Performed By: #### L 501.6901, L500.2500, L100.0100 ####[facility] [address] [place], [address] RDW SD 38.5 fl Normal 35.1-43.9 [facility] Comment on above: Performed By: #### L 501.6901, L500.2500, L100.0100 ####[facility] [address] [place], [address] WBC (Bld) [#/Vol] 21.0 10*3/uL High 4.4-11.0 [facility] Comment on above: Performed By: #### L 501.6901, L500.2500, L100.0100 ####[facility] [address] [place], [address] Carbon dioxide, total [Moles /volume] in Central venous bloodOrdered By: Berry Waldrop on 04-15-2025 CO2 [Moles/Vol] 21.1 mmol/L 21.0-32.0 [facility] Chloride assayOrdered By: Tanmay Waldrop on 07-19-2025 Chloride [Moles/Vol] 94 mmol/L Low 98-108 [facility] Emergency Department Summary on 04-15-2025 Emergency Department Summary Normal [facility] Eosinophil percentageOrdered By: Berry Waldrop on 04-15-2025 Eosinophils/100 WBC (Bld) 0.2 % 0-5 [facility] Erythrocyte distribution wid th ratioOrdered By: Berry Waldrop on 04-15-2025 Erythrocyte distribution width (RBC) [Ratio] 12.8 % 11.6-14.6 [facility] Erythrocyte distribution wid th standard deviationOrdered By: Berry Waldrop on 04-15-2025 Erythrocyte distribution width (RBC) [Ratio] 38.5 fl 35.1-43.9 [facility] Glomerular filtration rate ( GFR) estimation/1.73 sq m using serum, plasma, or whole bOrdered By: Berry Waldrop on 04-15-2025 GFR/1.73 sq M.predicted among non-blacks MDRD (S/P/Bld) [Vol rate/Area] 94 mL/min/{1.73_m2} >60 [facility] Comment on above: mL/min/1.73m2 CKD-EP I Creatinine Equation (2020) [facility] deOrdered By: Berry Waldrop on 04-15-2025 Glucose [Mass/Vol] 269 mg/dL High 74-106 [facility] Comment on above: MANAGEMENT OF PATIEN T CARE PER NURSING PROTOCOL Hematocrit Auto (Bld) [Volum e fraction]Ordered By: Berry Waldrop on 04-15-2025 Hematocrit (Bld) [Volume fraction] 45.4 % 37-47 [facility] Hemoglobin measurementOrdere d By: Berry Waldrop on 04-15-2025 Hemoglobin (Bld) [Mass/Vol] 16.3 g/dL High 12.0-15.0 [facility] Hyaline casts LM.LPF (Urine sed) [#/Area]Ordered By: Berry Waldrop on 04-15-2025 Hyaline casts (Urine sed) [#/Area] 5 /[LPF] 0-5 [facility] Immature granulocytes/100 WB C Auto (Bld)Ordered By: Berry Waldrop on 04-15-2025 Immature granulocytes/100 WBC (Bld) 0.700 % 0.0-0.9 [facility] Comment on above: IG% - Immature Granu locytes (promyelocytes, myelocytes and metamyelocytes) > 1% indicates that a LEFT SHIFT is Present. Ketones Test strip Ql (U)Ord ered By: Berry Waldrop on 04-15-2025 Ketones Ql (U) 50 mg/dl High Negative [facility] MCV (mean corpuscular volume ) determinationOrdered By: Berry Waldrop on 04-15-2025 MCV (RBC) [Entitic vol] 82.8 fL 81-99 [facility] Mean corpuscular hemoglobin (MCH) determinationOrdered By: Berry Waldrop on 04-15-2025 MCH (RBC) [Entitic mass] 29.7 pg 27.0-32.0 [facility] Mean corpuscular hemoglobin concentration (MCHC) determinationOrdered By: Berry Waldrop on 04-15-2025 MCHC (RBC) [Mass/Vol] 35.9 g/dL 32-36 [facility] Mean platelet volume determi nationOrdered By: Berry Waldrop on 04-15-2025 Platelet mean volume (Bld) [Entitic vol] 9.4 fL 6.2-12.0 [facility] Measurement, pHOrdered By: Vanita Waldrop on 04-15-2025 pH (Unsp spec) 7.59 [pH] High 7.35-7.45 [facility] Microscopic analysis of urin e for red blood cells (RBC)Ordered By: Berry Waldrop on 04-15-2025 Microscopic analysis of urine for red blood cells (RBC) 0 SEEN /hpf 0-5 [facility] Monocyte percentageOrdered B y: Berry Waldrop on 04-15-2025 Monocytes/100 WBC (Bld) 6.5 % 0-10 [facility] Mucus LM Ql (Urine sed)Order ed By: Berry Waldrop on 04-15-2025 Mucus Ql (Urine sed) 0 SEEN /hpf [facility] Neutrophil percentageOrdered By: Berry Waldrop on 04-15-2025 Neutrophils/100 WBC (Bld) 81.4 % High 47-70 [facility] Nitrite Test strip Ql (U)Ord ered By: Berry Waldrop on 04-15-2025 Nitrite Ql (U) Negative Negative [facility] No Panel InformationOrdered By: Berry Waldrop on 04-15-2025 Blood Gas Sample Site L Radial [facility] Blood Gas Specimen Type ART [facility] Blood Gas Vent Mode Not entered [facility] Oxygen Delivery Device Room Air [facility] Nucleated red blood cell per centageOrdered By: Berry Waldrop on 04-15-2025 Nucleated RBC/100 WBC (Bld) [Ratio] 0 % 0-5 [facility] Platelet countOrdered By: Tanmay Waldrop on 04-15-2025 Platelets (Bld) [#/Vol] 451 10*3/uL High 150-450 [facility] Potassium measurement (mass/ volume)Ordered By: Berry Waldrop on 04-15-2025 Potassium (Unsp spec) [Mass/Vol] 3.5 mmol/L 3.3-5.1 [facility] Comment on above: Hemolysis present, R esults could be affected. Protein Test strip Ql (U)Ord ered By: Berry Waldrop on 04-15-2025 Protein Ql (U) 30 mg/dl High Negative [facility] RBC Auto (Bld) [#/Vol]Ordere d By: Berry Waldrop on 04-15-2025 RBC (Bld) [#/Vol] 5.48 10*6/uL High 4.2-5.4 [facility] Serum creatinine measurement (mass/volume)Ordered By: Berry Waldrop on 04-15-2025 Creatinine [Mass/Vol] 0.69 mg/dL Low 0.70-1.20 [facility] Serum glucose measurement (m ass/volume)Ordered By: Berry Waldrop on 04-15-2025 Glucose [Mass/Vol] 264 mg/dL High 70-99 [facility] Serum or plasma calcium mulugeta urement (mass/volume)Ordered By: Berry Waldrop on 04-15-2025 Calcium [Mass/Vol] 9.3 mg/dL 7.6-11.0 [facility] Serum or plasma urea nitroge n measurement (mass/volume)Ordered By: Berry Waldrop on 04-15-2025 Urea nitrogen [Mass/Vol] 21 mg/dL High 4-19 [facility] Sodium levelOrdered By: Berry Waldrop on 04-15-2025 Sodium [Moles/Vol] 130 mmol/L Low 133-145 [facility] Squamous epithelial cells de tection in urine sediment by light microscopyOrdered By: Berry Waldrop on 04-15-2025 Epithelial cells.squamous LM Ql (Urine sed) 5-10 SEEN /hpf 5-10 [facility] Total carbon dioxide measure mentOrdered By: Berry Waldrop on 04-15-2025 CO2 [Moles/Vol] 22 mmol/L [facility] Urinalysis, Completeon 04-15 CAST,HYALINE 5-10 SEEN Normal 0-5 [facility] Comment on above: Order Comment: ELVIA CTOR TO SPECIFY Performed By: #### L 400.0001 ####[facility] [address] [place], [address] BACTERIA 1+ /hpf Normal None Seen [facility] Comment on above: Order Comment: ELVIA CTOR TO SPECIFY Performed By: #### L 400.0001 ####[facility] [address] [place], [address] EPI,SQUAMOUS 5-10 SEEN Normal 5-10 [facility] Comment on above: Order Comment: ELVIA CTOR TO SPECIFY Performed By: #### L 400.0001 ####[facility] [address] [place], [address] WBC 0-5 SEEN Normal 0-[address] [place] [address] Comment on above: Order Comment: ELVIA CTOR TO SPECIFY Performed By: #### L 400.0001 ####[facility] [address] [place], [address] Mucus Ql (Urine sed) 0 SEEN Normal [facility] Comment on above: Order Comment: ELVIA CTOR TO SPECIFY Performed By: #### L 400.0001 ####[facility] [address] [place], [address] RBC 0 SEEN Normal 0-5 [facility] Comment on above: Order Comment: ELVIA CTOR TO SPECIFY Performed By: #### L 400.0001 ####[facility] [address] [place], [address] Urine clarityOrdered By: Bryan Waldrop on 07-19-2025 Clarity (U) Sl. Cloudy Clear [facility] Urine color determinationOrd ered By: Berry Waldrop on 04-15-2025 Color (U) Yellow Yellow [facility] Urine glucose detectionOrder ed By: Berry Waldrop on 04-15-2025 Glucose Ql (U) 1000 mg/dl High Normal [facility] Urine leukocyte esterase det ection by dipstickOrdered By: Berry Waldrop on 04-15-2025 Leukocyte esterase Test strip Ql (U) Negative Negative [facility] Urine pHOrdered By: Berry minaya on 04-15-2025 pH (U) 6.0 [pH] 5.0 - 8.0 [facility] Urine sediment bacteria coun t by microscopy (number/high power field)Ordered By: Berry Waldrop on 04-15-2025 Bacteria LM.HPF (Urine sed) [#/Area] 1 /[HPF] None Seen [facility] Urine specific gravity measu rementOrdered By: Berry Waldrop on 04-15-2025 Specific gravity (U) [Rel density] 1.015 1.002-1.030 [facility] Urine urobilinogen measureme ntOrdered By: Berry Waldrop on 04-15-2025 Urobilinogen Ql (U) Normal mg/dl Normal [facility] White blood cell (WBC) count Ordered By: Berry Waldrop on 04-15-2025 WBC (Bld) [#/Vol] 21.0 10*3/uL High 4.4-11.0 [facility] White blood cell countOrdere d By: Berry Waldrop on 04-15-2025 White blood cell count 0-5 SEEN /hpf 0-5 [facility] CNPNon 04-06-2025 CNPN Telephone (FAMJordonWS) DEONTE BLANCO ([id number]) 1955 F Date Time Provider Department 04/06/25 [facility] During your visit today, we recorded the following information about you: Lias Aparicio RN 04/06/2025 10:40 AM Signed PRIOR AUTHORIZATION Medication for Prior Authorization: Kinney Thyroid Insurance Company: [facility] Medicare Patient insurance ID number: [id number] OLVIN Whitfield Janice, LPN 04/06/2025 11:00 AM Signed Electronic PA requested for both doses 120mg and 30 mg Liz Richards LPN 04/06/2025 11:24 AM Signed PA completed with both doses. Liz Richards LPN 04/06/2025 1:46 PM Signed This was denied last year and again this year. ote from payer: Request Reference Number: [id number]. ARMOUR THYRO TAB 120MG is denied for not meeting the prior authorization requirement(s). Details of this decision are in the notice attached below or have been faxed to you. Payer: [employer] PBM Part D [phone] Electronic appeal: Not supported Appeal instructions: Appeals are not supported through ePA. Please refer to the fax case notice for appeals information and instructions. View History Notes Time User Attachment Attachment received from payer. 04/06/2025 1:43 PM Cristiana Hartley Priorauth In Document Pharmacy Benefits Open Encounter DEONTE BLANCO - [employer] ([employer]) Covered: Retail, Mail Order Unknown: Specialty, Long-Term Care BIN: [id number] : 1955 Group ID: [id number] PCN: [id number] Legal sex: F Group name: COMM[employer] Address: [address] [place] [id number] Medication Being Authorized ARMOUR THYROID 120 mg tablet Take 1 tablet PO daily in AM Dispense: 90 tablet Refills: 1 DAVE Start: 01/20/2025 Class: Normal Diagnoses: Acquired hypothyroidism This order has been released to its destination. To be filled at: [facility] [address] [place] [phone] [phone] - [phone] Prior Authorization History for ARMOUR THYROID 120 [...] Visit: Insurance Authorization [1693] Prescriptions as of 04/07/2025 - blood sugar [...] mg armor thyroid) - blood sugar diagnostic (FrilpTOUCH VERIO TEST STRIPS) test strip Test blood sugar(s) 4 times daily. Dx: Type 2 DM - Uncontrolled E11.65 Insulin: Yes - Insulin [place], Disposable, (BD ULTRA-FINE MARIA T PEN NEEDLE) [...] E11.65 Insulin: No Problem List As Of D (more content not included)... Normal [facility] CBC W Auto Differential pane l (Bld)on 03-29-2025 Basophils (Bld) [#/Vol] 0.06 10*3/uL Normal <0.11 [facility] Comment on above: Order Comment: Speci men Type: BLOOD SPECIMENOrdering Facility: [facility] Address: [address] [place] [address] Performed By: #### 5 7021-8 ####[facility] LABCLIA [id number] [place] [address] [place] Basophils/100 WBC (Bld) 0.6 % Normal C [facility] Comment on above: Order Comment: Speci men Type: BLOOD SPECIMENOrdering Facility: [facility] Address: [address] [place] [address] Performed By: #### 5 7021-8 ####[facility] LABCLIA [id number] [place] [address] [place] Differential cell count method Nom (Bld) Auto Normal [facility] Comment on above: Order Comment: Speci men Type: BLOOD SPECIMENOrdering Facility: [facility] Address: [address] [place] [address] Performed By: #### 5 7021-8 ####[facility] LABCLIA [id number] [place] [address] [place] Eosinophils (Bld) [#/Vol] 0.24 10*3/uL Normal <0.46 [facility] Comment on above: Order Comment: Speci men Type: BLOOD SPECIMENOrdering Facility: [facility] Address: [address] [place] [address] Performed By: #### 5 7021-8 ####[facility] LABCLIA [id number] [place] [address] [place] Eosinophils/100 WBC (Bld) 2.2 % Normal [facility] Comment on above: Order Comment: Speci men Type: BLOOD SPECIMENOrdering Facility: [facility] Address: [address] [place] [address] Performed By: #### 5 7021-8 ####[facility] LABCLIA [id number] [place] [address] [place] Erythrocyte distribution width (RBC) [Ratio] 12.8 % Normal 11.5-15.0 [facility] Comment on above: Order Comment: Speci men Type: BLOOD SPECIMENOrdering Facility: [facility] Address: [address] [place] [address] Performed By: #### 5 7021-8 ####[facility] LABCLIA [id number] [place] [id number] [place] Hematocrit (Bld) [Volume fraction] 40.0 % Normal 36.0-46.0 [facility] Comment on above: Order Comment: Speci men Type: BLOOD SPECIMENOrdering Facility: [facility] Address: [address] [place] [address] Performed By: #### 5 7021-8 ####[facility] LABCLIA [id number] [place] [id number] [place] Hemoglobin (Bld) [Mass/Vol] 13.9 g/dL Normal 11.5-15.5 [facility] Comment on above: Order Comment: Speci men Type: BLOOD SPECIMENOrdering Facility: [facility] Address: [address] [place] [address] Performed By: #### 5 7021-8 ####[facility] LABCLIA [id number] [place] [address] [place] Immature granulocytes (Bld) [#/Vol] 0.06 10*3/uL Normal <0.10 [facility] Comment on above: Order Comment: Speci men Type: BLOOD SPECIMENOrdering Facility: [facility] Address: [address] [place] [address] Performed By: #### 5 7021-8 ####[facility] LABCLIA [id number] [place] [address] [place] Immature granulocytes/100 WBC (Bld) 0.6 % Normal [facility] Comment on above: Order Comment: Speci men Type: BLOOD SPECIMENOrdering Facility: [facility] Address: [address] [place] [address] Performed By: #### 5 7021-8 ####[facility] LABCLIA [id number] [place] [address] [place] Lymphocytes (Bld) [#/Vol] 2.27 10*3/uL Normal 1.00-4.00 [facility] Comment on above: Order Comment: Speci men Type: BLOOD SPECIMENOrdering Facility: [facility] Address: [address] [place] [address] Performed By: #### 5 7021-8 ####[facility] LABCLIA [id number] [place] [id number] [place] Lymphocytes/100 WBC (Bld) 21.0 % Normal [facility] Comment on above: Order Comment: Speci men Type: BLOOD SPECIMENOrdering Facility: [facility] Address: [address] [place] [address] Performed By: #### 5 7021-8 ####[facility] LABIA [id number] [address] [place] MCH (RBC) [Entitic mass] 30.5 pg Normal 26.0-34.0 [facility] Comment on above: Order Comment: Speci men Type: BLOOD SPECIMENOrdering Facility: [facility] Address: [address] [place] [address] Performed By: #### 5 7021-8 ####[facility] LABIA [id number] [place] [address] [place] MCHC (RBC) [Mass/Vol] 34.8 g/dL Normal 30.5-36.0 [facility] Comment on above: Order Comment: Speci men Type: BLOOD SPECIMENOrdering Facility: [facility] Address: [address] [place] [address] Performed By: #### 5 7021-8 ####[facility] LABIA [id number] [address] [place] MCV (RBC) [Entitic vol] 87.9 fL Normal 80.0-100.0 C [facility] Comment on above: Order Comment: Speci men Type: BLOOD SPECIMENOrdering Facility: [facility] Address: [address] [place] [address] Performed By: #### 5 7021-8 ####[facility] LABIA [id number] [place] [address] [place] Monocytes (Bld) [#/Vol] 0.75 10*3/uL Normal <0.87 [facility] Comment on above: Order Comment: Speci men Type: BLOOD SPECIMENOrdering Facility: [facility] Address: [address] [place] [address] Performed By: #### 5 7021-8 ####[facility] LABCLIA [id number] [place] [address] [place] Monocytes/100 WBC (Bld) 6.9 % Normal [facility] Comment on above: Order Comment: Speci men Type: BLOOD SPECIMENOrdering Facility: [facility] Address: [address] [place] [address] Performed By: #### 5 7021-8 ####[facility] LABCLIA [id number] [place] [address] [place] Neutrophils (Bld) [#/Vol] 7.45 10*3/uL Normal 1.45-7.50 [facility] Comment on above: Order Comment: Speci men Type: BLOOD SPECIMENOrdering Facility: [facility] Address: [address] [place] [address] Performed By: #### 5 7021-8 ####[facility] LABCLIA [id number] [place] [address] [place] Neutrophils/100 WBC (Bld) 68.7 % Normal [facility] Comment on above: Order Comment: Speci men Type: BLOOD SPECIMENOrdering Facility: [facility] Address: [address] [place] [address] Performed By: #### 5 7021-8 ####[facility] LABCLIA [id number] [place] [address] [place] Nucleated RBC (Bld) [#/Vol] 10*3/uL Normal <0.01 [facility] Comment on above: Order Comment: Speci men Type: BLOOD SPECIMENOrdering Facility: [facility] Address: [address] [place] [address] Performed By: #### 5 7021-8 ####[facility] [facility] LABCLIA [id number] [place] [id number] [place] Nucleated RBC/100 WBC (Bld) [Ratio] 0.0 /[address] [facility] Comment on above: Order Comment: Speci men Type: BLOOD SPECIMENOrdering Facility: [facility] Address: [address] [place] [address] Performed By: #### 5 7021-8 ####[facility] LABCLIA [id number] [place] [address] [place] Platelet mean volume (Bld) [Entitic vol] 9.7 fL Normal 9.0-12.7 [facility] Comment on above: Order Comment: Speci men Type: BLOOD SPECIMENOrdering Facility: [facility] Address: [address] [place] [address] Performed By: #### 5 7021-8 ####[facility] LABCLIA [id number] [place] [address] [place] Platelets (Bld) [#/Vol] 386 10*3/uL Normal 150-400 [facility] Comment on above: Order Comment: Speci men Type: BLOOD SPECIMENOrdering Facility: [facility] Address: [address] [place] [address] Performed By: #### 5 7021-8 ####[facility] LABCLIA [id number] [place] [address] [place] RBC (Bld) [#/Vol] 4.55 10*6/uL Normal 3.90-5.20 [facility] Comment on above: Order Comment: Speci men Type: BLOOD SPECIMENOrdering Facility: [facility] Address: [address] [place] [address] Performed By: #### 5 7021-8 ####[facility] LABCLIA [id number] [facility] [address] [address] [place] WBC (Bld) [#/Vol] 10.83 10*3/uL Normal 3.70-11.00 [facility] Comment on above: Order Comment: Speci men Type: BLOOD SPECIMENOrdering Facility: [facility] Address: [address] [place] [address] Performed By: #### 5 7021-8 ####[facility] LABCLIA [id number] [address] [address] [place] Iron and Iron binding capaci ty panel 03-29-2025 Iron [Mass/Vol] 69 ug/dL Normal 41-186 [facility] Comment on above: Order Comment: Speci men Type: BLOOD SPECIMENOrdering Facility: [facility] Address: [address] [place] [address] Performed By: #### 2 4362-6, 3084-1, 8, 13061-7 ####[facility] LABIA [id number] [place] [id number] [place] Iron binding capacity [Mass/Vol] 375 ug/dL Normal 232-386 [facility] Comment on above: Order Comment: Speci men Type: BLOOD SPECIMENOrdering Facility: [facility] Address: [address] [place] [address] Performed By: #### 2 4362-6, 3084-1, 8, 03740-2 ####[facility] LABIA [id number] [address] [address] [place] Iron/TIBC [Molar ratio] 18.4 % Normal 15.0-57.0 [facility] Comment on above: Order Comment: Speci men Type: BLOOD SPECIMENOrdering Facility: [facility] Address: [address] [place] [address] Performed By: #### 2 4362-6, 3084-1, 2731-04, 53382-0 ####[facility] LABIA [id number] [address] [address] [place] PTH-Intact SerPl-ncon 07-0 Parathyrin.intact [Mass/Vol] 40 pg/mL Normal 15-65 [facility] Comment on above: Order Comment: Speci men Type: BLOOD SPECIMENOrdering Facility: [facility] Address: [address] [place] [address] Performed By: #### 2 4362-6, 3084-1, 2731-8, 22987-3 ####[facility] LABCLIA [id number] [place] [id number] [place] Prot/Creat Uron 03-29-2025 Protein/Creatinine (U) [Mass ratio] 0.08 mg/mg Normal <0.15 [facility] Comment on above: Order Comment: Speci men Type: URINE SPECIMENOrdering Facility: [facility] Address: [address] [place] [address] Result Comment: Adul t Proteinuria Categories: <0.15 mg/mg is considered normal to mildly increased 0.15 - 0.50 mg/mg is considered moderately increased >0.50 mg/mg is considered severely increased KDIGO. (2013). KDIGO 2012 Clinical Practice Guideline for the Evaluation and Management of Chronic Kidney Disease. Official Journal of the International Society of Nephrology, 3(1), 1-150. Performed By: #### 2 890-2 ####[facility] LABIA [id number] [address] [address] [place] Protein/Creatinine (U) [Mass ratio]on 03-29-2025 Creatinine (U) [Mass/Vol] 73.3 mg/dL Normal 20.0-300.0 [facility] Comment on above: Order Comment: Speci men Type: URINE SPECIMENOrdering Facility: [facility] Address: [address] [place] [address] Performed By: #### 2 890-2 ####[facility] LABIA [id number] [address] [address] [place] Protein (U) [Mass/Vol] 6 mg/dL Normal 0-20 Cl [facility] Comment on above: Order Comment: Speci men Type: URINE SPECIMENOrdering Facility: [facility] Address: [address] [place] [address] Performed By: #### 2 890-2 ####[facility] LABCLIA [id number] [address] [address] [place] Renal function 2000 panelon 03-29-2025 Albumin [Mass/Vol] 4.3 g/dL Normal 3.9-4.9 [facility] Comment on above: Order Comment: Speci men Type: BLOOD SPECIMENOrdering Facility: [facility] Address: [address] [place] [address] Performed By: #### 2 4362-6, 3084-1, 8, 32523-7 ####[facility] LABCLIA [id number] [place] [id number] [place] Anion gap [Moles/Vol] 13 mmol/L Normal 8-15 [facility] Comment on above: Order Comment: Speci men Type: BLOOD SPECIMENOrdering Facility: [facility] Address: [address] [place] [address] Performed By: #### 2 4362-6, 3084-1, 8, 29624-4 ####[facility] LABCLIA [id number] [place] [id number] [place] Calcium [Mass/Vol] 9.8 mg/dL Normal 8.5-10.2 [facility] Comment on above: Order Comment: Speci men Type: BLOOD SPECIMENOrdering Facility: [facility] Address: [address] [place] [address] Performed By: #### 2 4362-6, 3084-1, 2738, 51135-7 ####[facility] LABCLIA [id number] [address] [address] [place] Chloride [Moles/Vol] 100 mmol/L Normal 98-107 [facility] Comment on above: Order Comment: Speci men Type: BLOOD SPECIMENOrdering Facility: [facility] Address: [address] [place] [address] Performed By: #### 2 4362-6, 3084-1, 8, 71469-7 ####[facility] LABCLIA [id number] [address] [address] [place] CO2 [Moles/Vol] 23 mmol/L Normal 22-30 [facility] Comment on above: Order Comment: Speci men Type: BLOOD SPECIMENOrdering Facility: [facility] Address: [address] [place] [address] Performed By: #### 2 4362-6, 3084-1, 8, 35947-0 ####[facility] LABIA [id number] [place] [id number] [place] Creatinine [Mass/Vol] 0.64 mg/dL Normal 0.58-0.96 [facility] Comment on above: Order Comment: Speci men Type: BLOOD SPECIMENOrdering Facility: [facility] Address: [address] [place] [address] Performed By: #### 2 4362-6, 3084-1, 8, 52599-9 ####[facility] LABIA [id number] [place] [id number] [place] Creatinine and Glomerular filtration rate.predicted panel (S/P/Bld) 96 mL/min/1.73m??? Normal >=60 [facility] Comment on above: Order Comment: Speci men Type: BLOOD SPECIMENOrdering Facility: [facility] Address: [address] [place] [address] Result Comment: Ana Paula mated Glomerular Filtration [...] reflect actual GFR. Performed By: #### 2 4362-6, 3084-1, 8, 49415-9 ####[facility] LABCLIA [id number] [address] [address] [place] Glucose [Mass/Vol] 234 mg/dL High 74-99 [facility] Comment on above: Order Comment: Speci emily Type: BLOOD SPECIMENOrdering Facility: [facility] Address: [address] [place] [address] Result Comment: The [place] Diabetes Association (ADA) provides guidance for cutoff [...] Standards of Medical Care in Diabetes 2016, [place] Diabetes Association. Diabetes Care. 2016.39(Suppl 1). Performed By: #### 2 4362-6, 3084-1, 8, ####[facility] LABCLIA [id number] [address] [address] [place] Phosphate [Mass/Vol] 3.1 mg/dL Normal 2.7-4.8 [facility] Comment on above: Order Comment: Noryi men Type: BLOOD SPECIMENOrdering Facility: [facility] Address: [address] [place] [address] Performed By: #### 2 4362-6, 3084-1, 8, ####[facility] LABCLIA [id number] [address] [address] [place] Potassium [Moles/Vol] 4.4 mmol/L Normal 3.7-5.1 [facility] Comment on above: Order Comment: Speci men Type: BLOOD SPECIMENOrdering Facility: [facility] Address: [address] [place] [address] Performed By: #### 2 4362-6, 3084-1, 8, 30112-0 ####[facility] LABCLIA [id number] [facility] [address] [address] [place] Sodium [Moles/Vol] 136 mmol/L Normal 136-144 [facility] Comment on above: Order Comment: Speci men Type: BLOOD SPECIMENOrdering Facility: [facility] Address: [address] [place] [address] Performed By: #### 2 4362-6, 308-1, 8, 63770-3 ####[facility] LABCLIA [id number] [place] [id number] [place] Urea nitrogen [Mass/Vol] 20 mg/dL Normal 7-21 [facility] Comment on above: Order Comment: Speci men Type: BLOOD SPECIMENOrdering Facility: [facility] Address: [address] [place] [address] Performed By: #### 2 4362-6, 3084-1, 8, 02899-2 ####[facility] LABCLIA [id number] [facility] [place] [id number] [place] Urate SerPl-mCncon 5 Urate [Mass/Vol] 4.1 mg/dL Normal 2.5-6.6 [facility] Comment on above: Order Comment: Speci men Type: BLOOD SPECIMENOrdering Facility: [facility] Address: [address] [place] [address] Performed By: #### 2 4362-6, 3084-1, 2731-04, 08683-8 ####[facility] LABCLIA [id number] [facility] [address] [address] [place] C peptide SerPl-mCncon 03-22 C peptide [Mass/Vol] 4.4 ng/mL Normal 1.1-4.4 [facility] Comment on above: Order Comment: Speci men Type: BLOOD SPECIMENOrdering Facility: [facility] Address: [address] [place] [address] Performed By: #### 1 986-9 ####[facility] LABCLIA [id number] [facility] [id number] [place] [address] [place] CNCOon 03-22-2025 CNCO Clinical report posted in error Letter Text Normal [facility] CNOVon 03-22-2025 CNOV Office Visit (EMILYYASMEEN ) DEONTE BLANCO ([id number]) 1955 F Date Time Provider Department 03/22/25 2:00 PM LILIANA BENNETT During your visit today, we recorded the following information about you: Pulse Blood pressure Weight 78/minute 140/70 84.3 kg Liliana Bennett APRN.BILLBOARD POSTER 03/22/2025 8:07 PM Signed This is a [...] she developed pancreatitis. Scheduled f/u appt with Artist Consultant. HISTORY OF PRESENT ILLNESS: Hyperglycemia: - Reports [...] with an orange or apple. - Dinner: [place] or tuna with broccoli, cauliflower, or [place] sprouts. - Snacks: Granola bars (17 grams [...] as needed (more content not included)... Normal [facility] Comprehensive metabolic 2000 panelon 03-22-2025 Albumin [Mass/Vol] 4.4 g/dL Normal 3.9-4.9 [facility] Comment on above: Order Comment: Speci men Type: BLOOD SPECIMENOrdering Facility: [facility] Address: [address] [place], [place] [address] Performed By: #### 2 4323-8 ####[facility] LABCLIA [id number] [address] [place] [address] [place] ALP [Catalytic activity/Vol] 129 U/L High 34-123 [facility] Comment on above: Order Comment: Speci men Type: BLOOD SPECIMENOrdering Facility: [facility] Address: [address] [place] [address] Performed By: #### 2 4323-8 ####[facility] LABCLIA [id number] [place] [id number] [place] ALT [Catalytic activity/Vol] 17 U/L Normal 7-38 [facility] Comment on above: Order Comment: Speci men Type: BLOOD SPECIMENOrdering Facility: [facility] Address: [address] [place] [address] Performed By: #### 2 4323-8 ####[facility] LABCLIA [id number] [place] [id number] [place] Anion gap [Moles/Vol] 13 mmol/L Normal 8-15 [facility] Comment on above: Order Comment: Speci men Type: BLOOD SPECIMENOrdering Facility: [facility] Address: [address] [place] [address] Performed By: #### 2 4323-8 ####[facility] LABCLIA [id number] [facility] [address] [place] [address] [place] AST [Catalytic activity/Vol] 18 U/L Normal 13-35 [facility] Comment on above: Order Comment: Speci men Type: BLOOD SPECIMENOrdering Facility: [facility] Address: [address] [place], [place] [address] Performed By: #### 2 4323-8 ####[facility] LABCLIA [id number] [facility] [address] [place] [address] [place] Bilirubin [Mass/Vol] 0.4 mg/dL Normal 0.2-1.3 [facility] Comment on above: Order Comment: Speci men Type: BLOOD SPECIMENOrdering Facility: [facility] Address: [address] [place], [place] [address] Performed By: #### 2 4323-8 ####[facility] LABCLIA [id number] [address], [facility]95 [place] Calcium [Mass/Vol] 10.3 mg/dL High 8.5-10.2 [facility] Comment on above: Order Comment: Speci men Type: BLOOD SPECIMENOrdering Facility: [facility] Address: [address] [place] [address] Performed By: #### 2 4323-8 ####[facility] LABCLIA [id number] [place] [id number] [place] Chloride [Moles/Vol] 98 mmol/L Normal 98-107 [facility] Comment on above: Order Comment: Speci men Type: BLOOD SPECIMENOrdering Facility: [facility] Address: [address] [place] [address] Performed By: #### 2 4323-8 ####[facility] LABCLIA [id number] [place] [id number] [place] CO2 [Moles/Vol] 24 mmol/L Normal 22-30 [facility] Comment on above: Order Comment: Speci men Type: BLOOD SPECIMENOrdering Facility: [facility] Address: [address] [place], [place] [address] Performed By: #### 2 4323-8 ####[facility] LABCLIA [id number] [facility] [address] [address] [place] Creatinine [Mass/Vol] 0.69 mg/dL Normal 0.58-0.96 [facility] Comment on above: Order Comment: Speci men Type: BLOOD SPECIMENOrdering Facility: [facility] Address: [address] [place] [address] Performed By: #### 2 4323-8 ####[facility] LABIA [id number] [place] [address] [place] Creatinine and Glomerular filtration rate.predicted panel (S/P/Bld) 94 mL/min/1.73m??? Normal >=60 [facility] Comment on above: Order Comment: Abimbola diaz Type: BLOOD SPECIMENOrdering Facility: [facility] Address: [address] [place] [address] Result Comment: Ana Paula mated Glomerular Filtration [...] actual GFR. Performed By: #### 2 4323-8 ####[facility] LABIA [id number] [place] [address] [place] Glucose [Mass/Vol] 171 mg/dL High 74-99 [facility] Comment on above: Order Comment: Abimbola emily Type: BLOOD SPECIMENOrdering Facility: [facility] Address: [address] [place] [address] Result Comment: The [place] Diabetes Association (ADA) provides guidance for cutoff [...] Standards of Medical Care in Diabetes 2016, [place] Diabetes Association. Diabetes Care. 2016.39(Suppl 1). Performed By: #### 2 4323-8 ####[facility] LABCLIA [id number] [place] [address] [place] Potassium [Moles/Vol] 4.3 mmol/L Normal 3.7-5.1 [facility] Comment on above: Order Comment: Speci men Type: BLOOD SPECIMENOrdering Facility: [facility] Address: [address] [place] [address] Performed By: #### 2 4323-8 ####[facility] LABCLIA [id number] [place] [address] [place] Protein [Mass/Vol] 7.4 g/dL Normal 6.3-8.0 [facility] Comment on above: Order Comment: Speci men Type: BLOOD SPECIMENOrdering Facility: [facility] Address: [address] [place] [address] Performed By: #### 2 4323-8 ####[facility] LABIA [id number] [place] [address] [place] Sodium [Moles/Vol] 135 mmol/L Low 136-144 [facility] Comment on above: Order Comment: Speci men Type: BLOOD SPECIMENOrdering Facility: [facility] Address: [address] [place] [address] Performed By: #### 2 4323-8 ####[facility] LABCLIA [id number] [place] [address] [place] Urea nitrogen [Mass/Vol] 12 mg/dL Normal 7-21 [facility] Comment on above: Order Comment: Speci men Type: BLOOD SPECIMENOrdering Facility: [facility] Address: [address] [place] [address] Performed By: #### 2 4323-8 ####[facility] LABCLIA [id number] [place] [address] [place] GAD65 Ab Ser-aCncon 06-25-20 25 Glutamate decarboxylase 65 Ab Qn (S) <5.0 Normal <=5.0 [facility] Comment on above: Order Comment: Abimbola diaz Type: BLOOD SPECIMENOrdering Facility: [facility] Address: [address] [place] [address] Result Comment: Anti -glutamic acid decarboxylase antibody [...] is required. Performed By: #### 1 3926-1 ####[facility] [id number] [place] [address] [place] Glutamate decarboxylase 65 A b Qn (S)on 03-22-2025 GLUTAMIC ACID DECARBOXYLAS AB QUALITATIVE Negative Normal Negative [facility] Comment on above: Order Comment: Abimbola diaz Type: BLOOD SPECIMENOrdering Facility: [facility] Address: [address] [place] [address] Performed By: #### 1 3926-1 ####[facility] [id number] [place] [address] [place] HbA1c (Bld)on 03-22-2025 Average glucose Estimated from glycated hemoglobin (Bld) [Mass/Vol] 183 mg/dL Normal [facility] Comment on above: Order Comment: Abimbola diaz Type: BLOOD SPECIMENOrdering Facility: [facility] Address: [address] [place] [address] Result Comment: eAG: (Estimated average glucose) is a calculated value from HgbA1c and is front office representative of the average blood glucose level in the last 2-3 month period. Performed By: #### 5 5454-3 ####[facility] LABIA [id number] [place] [address] [place] HbA1c (Bld) [Mass fraction] 8.0 % High 4.3-5.6 [facility] Comment on above: Order Comment: Abimbola [facility] Type: BLOOD SPECIMENOrdering Facility: [facility] Address: [address] [place] [address] Result Comment: Marleen ican Diabetes Association guidelines indicate that patients with HgbA1c in the range 5.7-6.4% are at increased risk for development of diabetes, and intervention by lifestyle modification may be beneficial. HgbA1c greater or equal to 6.5% is considered diagnostic of diabetes. Performed By: #### 5 5454-3 ####[facility] LABCLIA [id number] [place] [address] [place] INSULINOMA ASSOCIATED ANTIBO DY 2on 03-22-2025 IA 2 ANTIBODY BLOOD <5.4 Normal <7.5 [facility] Comment on above: Order Comment: Abimbola [facility] Type: BLOOD SPECIMENOrdering Facility: [facility] Address: [address] [place] [address] Result Comment: Anti -insulinoma associated antigen 2 (IA-2) antibody test is used as an aid in diagnosis of type I diabetes mellitus, to predict the risk of progression to type I diabetes mellitus among susceptible individuals, and to predict the necessity of insulin therapy in adult-onset diabetes mellitus. Clinical correlation is required. Performed By: #### I A2AB ####[facility] LABCLIA [id number] [place] [address] [place] ISLET CELL ABon 03-22-2025 ISLET CELL AB <1:4 Normal <1:4 [facility] Comment on above: Order Comment: Abimbola [facility] Type: BLOOD SPECIMENOrdering Facility: [facility] Address: [address] [place] [address] Result Comment: INTE RPRETIVE INFORMATION: Islet Cell [...] developed and its performance characteristics determined by [facility]. It has not been cleared or approved by the [place] Food and Drug Administration. This test was performed in a CLIA certified laboratory and is intended for clinical purposes. Performed By: [facility] [address] [place], [place] [id number] [employer] Developer: Suresh Rothman MD, PhD CLIA Number: [id number] Performed By: #### I SLET, ZNT8AB ####[facility] [id number] [place] [id number] ZINC TRANSPORTER 8 ANTIBODYo n 03-22-2025 ZINC TRANSPORTER 8 ANTIBODY <10.0 Normal 0.0-15.0 [facility] Comment on above: Order Comment: Speci men Type: BLOOD SPECIMENOrdering Facility: [facility] Address: [address] [place] [address] Result Comment: INTE RPRETIVE INFORMATION: Zinc Transporter 8 Antibody A value greater than 15.0 Kronus Units/mL is considered positive for the Zinc Transporter 8 Antibody (ZnT8). Kronus Units are arbitrary. Kronus Units = U/mL. This assay is intended for the semi-quantitative determination of antibodies to ZnT8 in human serum. Results should be interpreted within the context of clinical symptoms. Performed By: [facility] [address] [place], [place] [id number] Application Security Developer: Suresh Rothman MD, PhD CLIA Number: [id number] Performed By: #### I SLET, ZNT8AB ####[facility] [id number] [place] [id number] [facility] DEONTE BLANCO ([id number]) 1955 F Date Time Provider Department 03/18/25 PREET FARRAR [facility] During your visit today, we recorded [...] if Zofran could be sent to [facility]. Pended previous order of Zofran. Message [...] to meet with the pharmacist here at [facility] to discuss medication concerns and options for diabetes DO Dread Urban Amanda, RN 03/20/2025 5:56 PM Signed Pt [...] mg tablet (more content not included)... Normal [facility] 03[facility]16-2025 [facility] DEONTE BLANCO ([id number]) 1955 F Date Time Provider Department 03/16/25 [facility] During your visit today, we recorded the [...] take her insulin shot tomorrow morning? Liliana Bennett, [place].BILLBOARD POSTER 03/16/2025 2:56 PM Signed If patient doesn't [...] Fully Assessed Reason for Visit: Patient Question [6871] Cmt: re: insulin Visit Diagnosis:Ischemic stroke without [...] 2 DM - Uncontrolled Insulin: Yes - Insulin Succ[place]unna, Disposable, (BD ULTRA-FINE MARIA T PEN NEEDLE) [...] 2 DM - Uncontrolled 65 Insulin: No Problem List As Of Date [...] [F41.8] 10/12/2018 (more content not included)... Normal [facility] CNOVon 02-17-2025 CNOV Office Visit (FAMPWS ) DEONTE BLANCO ([id number]) 1955 F Date Time Provider Department 02/17/25 3:40 PM [facility] During your visit today, we recorded the following information about you: Temperature Pulse Respiration Blood pressure 97.3 degrees 76/minute 16/minute 146/80 Weight 85.3 kg Preet Farrar, 02/18/2025 11:49 AM Signed Patient presents with: F/U 3 Month HPI: Deonte Blanco is a 69 year old female who presents to the office today for review of health conditions. Concerns today: She was seen by Banking Management Consulting Manager Dr. Isaac and states that she didn't [...] time. She does not check BP's generally. Deonte gets minimal exercise. PAST MEDICAL HISTORY Diagnosis [...] differently: Take (more content not included)... Normal [facility] CTA Abdomen W/WO Contraston 02-16-2025 CTA Abdomen W/WO Contrast Normal [facility] CNNURSEon 02-14-2025 CNNURSE Nurse Visit (ENDIMT) DEONTE BLANCO ([id number]) 1955 F Date Time Provider Department 02/14/25 1:00 PM RODRIGO HOLGUIN During your visit today, we recorded the following information about you: Rodrigo Holguin, OLVIN 02/14/2025 1:17 PM Signed DIABETES CARE AND EDUCATION VISIT Location: [place] Type of visit: In person individual PATIENT'S [...] record. SIGNATURE: Rodrigo Holguin RN PATIENT NAME: Deonte Blanco DATE: February 14, 2025 TIME: 12:48 PM Referring Provider: BEAN ISAAC [[id number]] Allergies As of Date: 02/14/2025 Noted Allergy [...] [E11.59, Z79.4] Order(s):CONSULT TO DIABETES EDUCATION DSME [[id number]] Order #: [id number]: 2 Prescriptions as of 02/14/2025 - ARMOUR [...] on fasting at 8 am - Insulin Succasunna, Disposable, (BD ULTRA-FINE MARIA T PEN NEEDLE) 32 gauge x Use one needle for each dose. 1/day. - blood sugar diagnostic (BLOOD GLUCOSE TEST) test strip Test blood sugar(s) 2 times daily. Dx: Type 2 DM - Uncontrolled E11.65 Insulin: No - spironolactone (ALDACTONE) 25 mg tablet Take 25 mg by mouth once daily. - flash glucose scanning reader (SonicPollen TARA 2 READER) 1 Device as directed. [...] Dx: es (more content not included)... Normal [facility] CNOVon 02-09-2025 CNOV Office Visit (ENWSTR ) DEONTE BLANCO ([id number]) 1955 F Date Time Provider Department 02/09/25 10:00 AM BEAN ISAAC ENWSTR During your visit today, we recorded the following information about you: Pulse Blood pressure Weight 84/minute 122/78 85.2 kg Bean Isaac MD 02/09/2025 7:08 PM Signed [facility] Follow up note Referred by: PCP- Preet Farrar DO History of Present illness: Deonte Joaquim Blanco is a 69 year old female [...] carbs . Lifestyle -Exercise: 30 mins on [employer] mill daily -Diet: Breakfast: 3 eggs, 1 [...] alopecia, excessiv (more content not included)... Normal [facility] ON DEMANDon Ordered by an unspecified provider. [facility] Ordered by an unspecified provider. [facility] Director Experimental Medicine Office Visit Reporton 02-06-2025 Director Experimental Medicine Office Visit Report Normal [facility] Cardiology Visit Reporton Cardiology Visit Report Normal [facility] Director Experimental Medicine Office Visit Reporton 01-09-2025 Director Experimental Medicine Office Visit Report Normal [facility] CNPNon 12-29-2024 CNPN [facility] DEONTE BLANCO ([id number]) 1955 F Date Time Provider Department 12/29/24 [...] stated the call had been handled through [employer] chat. No notes in triage with what was done. Will follow up with Dr. Isaac and her office. Will also forward this msg to her as well. Pushpa Falcon, RN 01/02/2025 1:30 PM Signed To my [...] when starting the Trulicity DO Prabhjot Urban [place] ALEXIA 01/02/2025 4:43 PM Signed Pt. informed. Yesi [...] Fully Assessed Reason for Visit: Patient Question [6764] Prescriptions as of 01/03/2025 - dulaglutide (TRULICITY) [...] on fasting at 8 am - Insulin Succasunna, Disposable, (BD ULTRA-FINE MARIA T PEN NEEDLE) [...] by vaibhav (more content not included)... Normal [facility] Anion gap in Serum or Plasma Ordered By: Anushka Isaac on 12-28-2024 Anion gap [Moles/Vol] 13 mmol/L 5-15 [facility] BUN/creatinine ratioOrdered By: Anushka Isaac on 12-28-2024 Urea nitrogen/Creatinine [Mass ratio] 25.4 mg/mg High 07-17 [facility] Basic Metabolic Profile (BMP )on 12-28-2024 BUN/CRE 25.4 RATIO High [facility] Comment on above: Performed By: #### L 100.0500, L500.2500 ####[facility] [address] [place], [address] Calcium [Mass/Vol] 9.0 mg/dL Normal 7.6-11.0 [facility] Comment on above: Performed By: #### L 100.0500, L500.2500 ####[facility] [address] [place], [address] Chloride [Moles/Vol] 95 mmol/L Low 98-108 [facility] Comment on above: Performed By: #### L 100.0500, L500.2500 ####[facility] [address] [place], [address] CO2 [Moles/Vol] 24.0 mmol/L Normal 21.0-32.0 [facility] Comment on above: Performed By: #### L 100.0500, L500.2500 ####[facility] [address] [place], [address] Creatinine [Mass/Vol] 0.62 mg/dL Low 0.70-1.20 [facility] Comment on above: Performed By: #### L 100.0500, L500.2500 ####[facility] [address] [place], [address] ECRCL 64.10 ml/min Normal 50-250 [facility] Comment on above: Performed By: #### L 100.0500, L500.2500 ####[facility] [address] [place], [address] GAP 13 Normal 5-15 [facility] Comment on above: Performed By: #### L 100.0500, L500.2500 ####[facility] [address] [place], [address] GFR/1.73 sq M.predicted among non-blacks MDRD (S/P/Bld) [Vol rate/Area] 97 mL/min/{1.73_m2} Normal >60 [facility] Comment on above: Result Comment: mL/m in/1.73m2 CKD-EPI Creatinine Equation (2020) Performed By: #### L 100.0500, L500.2500 ####[facility] [address] [place], [address] Glucose [Mass/Vol] 170 mg/dL High 70-99 [facility] Comment on above: Performed By: #### L 100.0500, L500.2500 ####[facility] [address] [place], [address] Potassium [Moles/Vol] 3.8 mmol/L Normal 3.3-5.1 [facility] Comment on above: Performed By: #### L 100.0500, L500.2500 ####[facility] [address] [place], [address] Sodium [Moles/Vol] 132 mmol/L Low 133-145 [facility] Comment on above: Performed By: #### L 100.0500, L500.2500 ####[facility] [address] [place], [address] Urea nitrogen [Mass/Vol] 16 mg/dL Normal 4-19 [facility] Comment on above: Performed By: #### L 100.0500, L500.2500 ####[facility] [address] [place], [address] Bedside Glucoseon 12-28-2024 FINGERSTICK GLU 181 mg/dL High 74-106 [facility] Comment on above: Result Comment: CARIN GEMENT OF PATIENT CARE PER NURSING PROTOCOL Performed By: #### L 501.080 ####[facility] [address] [place], [address] FINGERSTICK GLU 183 mg/dL High 74-106 [facility] Comment on above: Result Comment: CARIN GEMENT OF PATIENT CARE PER NURSING PROTOCOL Performed By: #### L 501.080 ####[facility] [address] [place], [address] CBC-Complete Blood Cnt No Di ffon 12-28-2024 Erythrocyte distribution width (RBC) [Ratio] 13.2 % Normal 11.6-14.6 [facility] Comment on above: Performed By: #### L 100.0500, L500.2500 ####[facility] [address] [place], [address] Hematocrit (Bld) [Volume fraction] 38.7 % Normal 37-47 [facility] Comment on above: Performed By: #### L 100.0500, L500.2500 ####[facility] [address] [place], [address] Hemoglobin (Bld) [Mass/Vol] 13.4 g/dL Normal 12.0-15.0 [facility] Comment on above: Performed By: #### L 100.0500, L500.2500 ####[facility] [address] [place], [address] MCH (RBC) [Entitic mass] 30.0 pg Normal 27.0-32.0 [facility] Comment on above: Performed By: #### L 100.0500, L500.2500 ####[facility] [address] [place], [address] MCHC (RBC) [Mass/Vol] 34.6 g/dL Normal 32-36 [facility] Comment on above: Performed By: #### L 100.0500, L500.2500 ####[facility] [address] [place], [address] MCV (RBC) [Entitic vol] 86.8 fL Normal 81-99 [facility] Comment on above: Performed By: #### L 100.0500, L500.2500 ####[facility] [address] [place], [address] Platelet mean volume (Bld) [Entitic vol] 9.8 fL Normal 6.2-12.0 [facility] Comment on above: Performed By: #### L 100.0500, L500.2500 ####[facility] [address] [place], [address] Platelets (Bld) [#/Vol] 332 10*3/uL Normal 150-450 [facility] Comment on above: Performed By: #### L 100.0500, L500.2500 ####[facility] [address] [place], [address] RBC (Bld) [#/Vol] 4.46 10*6/uL Normal 4.2-5.4 [facility] Comment on above: Performed By: #### L 100.0500, L500.2500 ####[facility] [address] [place], [address] RDW SD 41.9 fl Normal 35.1-43.9 [facility] Comment on above: Performed By: #### L 100.0500, L500.2500 ####[facility] [address] [place], [address] WBC (Bld) [#/Vol] 16.8 10*3/uL High 4.4-11.0 [facility] Comment on above: Performed By: #### L 100.0500, L500.2500 ####[facility] [address] [place], [address] Carbon dioxide, total [Moles /volume] in Central venous bloodOrdered By: Anushka Isaac on 12-28-2024 CO2 [Moles/Vol] 24.0 mmol/L 21.0-32.0 [facility] Chloride assayOrdered By: Ton Isaac on 12-28-2024 Chloride [Moles/Vol] 95 mmol/L Low 98-108 [facility] Erythrocyte distribution wid th (RBC) [Ratio]Ordered By: Anushka Isaac on 12-28-2024 Erythrocyte distribution width (RBC) [Entitic vol] 41.9 fL 35.1-43.9 [facility] Erythrocyte distribution wid th ratioOrdered By: Anushka Isaac on 12-28-2024 Erythrocyte distribution width (RBC) [Ratio] 13.2 % 11.6-14.6 [facility] Erythrocyte distribution wid th standard deviationOrdered By: Anushka Isaac on 12-28-2024 Erythrocyte distribution width (RBC) [Ratio] 41.9 fl 35.1-43.9 [facility] Estimation of creatinine siddhartha aranceOrdered By: Anushka Isaac on 12-28-2024 Estimated Creatinine Clearance Calc 64.10 ml/min 50-250 [facility] GFR/1.73 sq M.predicted abdulaziz g non-blacks MDRD (S/P/Bld) [Vol rate/Area]Ordered By: Anushka Isaac on 12-28-2024 Estimated GFR (MDRD) Non-Af Amer 97 >60 [facility] Comment on above: mL/min/1.73m2 CKD-EP I Creatinine Equation (2020) Glomerular filtration rate ( GFR) estimation/1.73 sq m using serum, plasma, or whole bOrdered By: Anushka Isaac on 12-28-2024 GFR/1.73 sq M.predicted among non-blacks MDRD (S/P/Bld) [Vol rate/Area] 97 mL/min/{1.73_m2} >60 [facility] Comment on above: mL/min/1.73m2 CKD-EP I Creatinine Equation (2020) [facility]dered By: Anushka Isaac on 12-28-2024 Bedside Glucose (Misc Panel) 181 mg/dL High 74-106 [facility] Comment on above: MANAGEMENT OF PATIEN T CARE PER NURSING PROTOCOL Glucose [Mass/Vol] 181 mg/dL High 74-106 [facility] Comment on above: MANAGEMENT OF PATIEN T CARE PER NURSING PROTOCOL Hematocrit Auto (Bld) [Volum e fraction]Ordered By: Anushka Isaac on 12-28-2024 Hematocrit (Bld) [Volume fraction] 38.7 % 37-47 [facility] Hemoglobin measurementOrdere d By: Anushka Isaac on 12-28-2024 Hemoglobin (Bld) [Mass/Vol] 13.4 g/dL 12.0-15.0 [facility] MCV (mean corpuscular volume ) determinationOrdered By: Anushka Isaac on 12-28-2024 MCV (RBC) [Entitic vol] 86.8 fL 81-99 [facility] Mean corpuscular hemoglobin (MCH) determinationOrdered By: Anushka Isaac on 12-28-2024 MCH (RBC) [Entitic mass] 30.0 pg 27.0-32.0 [facility] Mean corpuscular hemoglobin concentration (MCHC) determinationOrdered By: Anushka Isaac on 12-28-2024 MCHC (RBC) [Mass/Vol] 34.6 g/dL 32-36 [facility] Mean platelet volume determi nationOrdered By: Anushka Isaac on 12-28-2024 Platelet mean volume (Bld) [Entitic vol] 9.8 fL 6.2-12.0 [facility] Platelet countOrdered By: Ton Isaac on 12-28-2024 Platelets (Bld) [#/Vol] 332 10*3/uL 150-450 [facility] Potassium (Unsp spec) [Mass/ Vol]Ordered By: Anushka Isaac on 12-28-2024 Potassium [Moles/Vol] 3.8 mmol/L 3.3-5.1 [facility] Potassium measurement (mass/ volume)Ordered By: Anushka Isaac on 12-28-2024 Potassium (Unsp spec) [Mass/Vol] 3.8 mmol/L 3.3-5.1 [facility] RBC Auto (Bld) [#/Vol]Ordere d By: Anushka Isaac on 12-28-2024 RBC (Bld) [#/Vol] 4.46 10*6/uL 4.2-5.4 [facility] Serum creatinine measurement (mass/volume)Ordered By: Anushka Isaac on 12-28-2024 Creatinine [Mass/Vol] 0.62 mg/dL Low 0.70-1.20 [facility] Serum glucose measurement (m ass/volume)Ordered By: Anushka Rafael on 12-28-2024 Glucose [Mass/Vol] 170 mg/dL High 70-99 [facility] Serum or plasma calcium mulugeta urement (mass/volume)Ordered By: Anushka Isaac on 12-28-2024 Calcium [Mass/Vol] 9.0 mg/dL 7.6-11.0 [facility] Serum or plasma urea nitroge n measurement (mass/volume)Ordered By: Anushka Isaac on 12-28-2024 Urea nitrogen [Mass/Vol] 16 mg/dL 4-19 [facility] Sodium levelOrdered By: Elvis Isaac on 12-28-2024 Sodium [Moles/Vol] 132 mmol/L Low 133-145 [facility] White blood cell (WBC) count Ordered By: Anushka Isaac on 12-28-2024 WBC (Bld) [#/Vol] 16.8 10*3/uL High 4.4-11.0 [facility] Bedside Glucoseon 12-27-2024 FINGERSTICK GLU 231 mg/dL High 74-106 [facility] Comment on above: Result Comment: CARIN GEMENT OF PATIENT CARE PER NURSING PROTOCOL Performed By: #### L 501.080 ####[facility] [address] [facility] [address] FINGERSTICK GLU 299 mg/dL High 74-106 [facility] Comment on above: Result Comment: CARIN GEMENT OF PATIENT CARE PER NURSING PROTOCOL Performed By: #### L 501.080 ####[facility] [address] [facility] [address] FINGERSTICK GLU 305 mg/dL High -106 [facility] Comment on above: Result Comment: CARIN GEMENT OF PATIENT CARE PER NURSING PROTOCOL Performed By: #### L 501.080 ####[facility] [address] [facility] [address] FINGERSTICK GLU 243 mg/dL High 74-106 [facility] Comment on above: Result Comment: CARIN GEMENT OF PATIENT CARE PER NURSING PROTOCOL Performed By: #### L 501.080 ####[facility] [address] [place], [address] FINGERSTICK GLU 222 mg/dL High 74-106 [facility] Comment on above: Result Comment: CARIN DYER OF PATIENT CARE PER NURSING PROTOCOL Performed By: #### L 501.080 ####[facility] [address] [place], [address] CBC-Complete Blood Cnt No Di ffon 12-27-2024 Erythrocyte distribution width (RBC) [Ratio] 13.2 % Normal 11.6-14.6 [facility] Comment on above: Performed By: #### L 100.0500 ####[facility] [address] [place], [address] Hematocrit (Bld) [Volume fraction] 39.2 % Normal 37-47 [facility] Comment on above: Performed By: #### L 100.0500 ####[facility] [address] [place], [address] Hemoglobin (Bld) [Mass/Vol] 13.4 g/dL Normal 12.0-15.0 [facility] Comment on above: Performed By: #### L 100.0500 ####[facility] [address] [place], [address] MCH (RBC) [Entitic mass] 29.8 pg Normal 27.0-32.0 [facility] Comment on above: Performed By: #### L 100.0500 ####[facility] [address] [place], [address] MCHC (RBC) [Mass/Vol] 34.2 g/dL Normal 32-36 [facility] Comment on above: Performed By: #### L 100.0500 ####[facility] [address] [place], [address] MCV (RBC) [Entitic vol] 87.1 fL Normal 81-99 [facility] Comment on above: Performed By: #### L 100.0500 ####[facility] [address] [place], [address] Platelet mean volume (Bld) [Entitic vol] 9.6 fL Normal 6.2-12.0 [facility] Comment on above: Performed By: #### L 100.0500 ####[facility] [address] [place], [address] Platelets (Bld) [#/Vol] 332 10*3/uL Normal 150-450 [facility] Comment on above: Performed By: #### L 100.0500 ####[facility] [address] [place], [address] RBC (Bld) [#/Vol] 4.50 10*6/uL Normal 4.2-5.4 [facility] Comment on above: Performed By: #### L 100.0500 ####[facility] [address] [place], [address] RDW SD 41.4 fl Normal 35.1-43.9 [facility] Comment on above: Performed By: #### L 100.0500 ####[facility] [address] [place], [address] WBC (Bld) [#/Vol] 15.7 10*3/uL High 4.4-11.0 [facility] Comment on above: Performed By: #### L 100.0500 ####[facility] [address] [place], [address] Discharge Instructionon Discharge Instruction Normal [facility] MR/POSTOP.ANEon 12-27-2024 MR/POSTOP.ANE Normal [facility] MR/LAPPPSML0yz 12-27-2024 MR/POSTOPAN2 Normal [facility] Operative Reporton Operative Report Normal [facility] Surgery Specimen Level Von 0 12-27-2024 Surgery Specimen Level V Normal [facility] Comment on above: Performed By: #### P [facility] ####[facility] [address] [place], [address] CNPNon 12-21-2024 CNPN Telephone (FAMPWS) DEONTE BLANCO ([id number]) 1955 F Date Time Provider Department [facility] During your visit today, we recorded the following information about you: Chelo Prasad RN 12/21/2024 9:38 AM Signed Patient calling in and states she needs a prior authorization for her lantus insulin, as ordered 10/07/24, per [facility]. Prior authorization requested for the following medication: Medication: insulin glargine (lantus solostar) 100 unit/mL Provider: Dr. Farrar Insurance Company Name: [facility] Medicare Pharmacy Name: [facility] [place] [facility] Telephone number: [phone] Please call patient once an update has been received. OLVIN Mujica [place], [place] 12/21/2024 10:51 AM Signed No PA needed covered. Called [facility] [employer] and spoke to [employer] who did for brand lantus and is [...] on fasting at 8 am - Insulin Succ[place]unna, Disposable, (BD ULTRA-FINE MARIA T PEN NEEDLE) [...] (HCC) [E1 (more content not included)... Normal [facility] 12-19-2024 [facility] Telephone (FAMPWS) DEONTE BLANCO ([id number]) 1955 F Date Time Provider Department 12/19/24 [facility] During your visit today, we recorded the following information about you: Josie Starks RN 12/19/2024 2:53 PM Signed Patient calls to ask about holding Plavix for upcoming hysterectomy. Patient reports Dr. Isaac was leaning towards holding medication for 3 days but wanted patient to check with PCP to verify the length of time provider would recommend that she hold Plavix. Patient requests call back at [phone]. OLVIN Livingston Jordan L, DO 12/19/2024 5:08 [...] Fully Assessed Reason for Visit: Patient Question [6632] Upcoming Surgery [Other] Prescriptions as of 12/19/2024 [...] Type 2 DM - Uncontrolled . Insulin: Yes - dexAMETHasone (DECADRON) 1 mg tablet Take the tablet at 11 pm and go for labs the next morning on fasting at 8 am - Insulin Su[place], Disposable, (BD ULTRA-FINE MARIA T PEN NEEDLE) [...] ulcerative col (more content not included)... Normal [facility] Electrocardiogram reportOrde red By: Jamel Gray on 12-16-2024 EKG study [facility] [address] [place] [address] 12 Lead EKG 12/15/24 1226 MR#: [id number] Acct: [id number] Name: DEONTE BLANCO Rep #:[id number] : 1955 69 From: Jamel Gray MD Attending Dr: Dr. Anushka Isaac MD Status: [place] [facility] [place]: Anushka Isaac MD Cecil e: 12/15/24 [place] [facility] [place]: F C Admitted: Test Reason : PREOP Blood Pressure : */* mmHG Vent. Rate : 67 BPM Atrial Rate : 67 BPM P-R Int : 208 ms QRS Dur : 86 ms QT Int : 390 ms P-R-T Axes : * 8 2 degrees QTcB Int : 412 ms Normal sinus rhythm Normal ECG Confirmed by JAMEL GRAY MD ([id number]), technical editor ANNMARIE GANT ([id number]) on :50:15 AM Referred By: Anushka Isaac Confirmed By: JAMEL GRAY MD 12/16/24 0550 Date _ Jamel Gray MD CC: Dr. Preet Farrar, ; Dr. Anushka Isaac MD ~ Signed [facility] Work Phone: MR/PAT.ANEon 12-16-2024 MR/PAT.ANE Normal [facility] 12 Lead EKGon 12-15-2024 12 Lead EKG Normal [facility] Bilirubin, totalOrdered By: Anushka Isaac on 12-15-2024 Bilirubin [Mass/Vol] 0.49 mg/dL 0.00-1.30 [facility] CBC-Complete Blood Cnt No Di ffon 12-15-2024 Erythrocyte distribution width (RBC) [Ratio] 13.2 % Normal 11.6-14.6 [facility] Comment on above: Performed By: #### L 506.0400, L500.4050, L501.9520, BTSPAT, L100.0500 ####[facility] [address] [place], [place], [id number] Hematocrit (Bld) [Volume fraction] 41.4 % Normal 37-47 [facility] Comment on above: Performed By: #### L 506.0400, L500.4050, L501.9520, BTSPAT, L100.0500 ####[facility] [address] [place], [address] Hemoglobin (Bld) [Mass/Vol] 13.9 g/dL Normal 12.0-15.0 [facility] Comment on above: Performed By: #### L 506.0400, L500.4050, L501.9520, BTSPAT, L100.0500 ####[facility] [address] [place], [address] MCH (RBC) [Entitic mass] 29.9 pg Normal 27.0-32.0 [facility] Comment on above: Performed By: #### L 506.0400, L500.4050, L501.9520, BTSPAT, L100.0500 ####[facility] [address] [place], [address] MCHC (RBC) [Mass/Vol] 33.6 g/dL Normal 32-36 [facility] Comment on above: Performed By: #### L 506.0400, L500.4050, L501.9520, BTSPAT, L100.0500 ####[facility] [address] [place], [address] MCV (RBC) [Entitic vol] 89.0 fL Normal 81-[address] [facility] Comment on above: Performed By: #### L 506.0400, L500.4050, L501.9520, BTSPAT, L100.0500 ####[facility] [address] [place], [address] Platelet mean volume (Bld) [Entitic vol] 9.9 fL Normal 6.2-12.0 [facility] Comment on above: Performed By: #### L 506.0400, L500.4050, L501.9520, BTSPAT, L100.0500 ####[facility] [address] [place], [address] Platelets (Bld) [#/Vol] 354 10*3/uL Normal 150-450 [facility] Comment on above: Performed By: #### L 506.0400, L500.4050, L501.9520, BTSPAT, L100.0500 ####[facility] [address] [place], [address] RBC (Bld) [#/Vol] 4.65 10*6/uL Normal 4.2-5.4 [facility] Comment on above: Performed By: #### L 506.0400, L500.4050, L501.9520, BTSPAT, L100.0500 ####[facility] [address] [place], [address] RDW SD 43.2 fl Normal 35.1-43.9 [facility] Comment on above: Performed By: #### L 506.0400, L500.4050, L501.9520, BTSPAT, L100.0500 ####[facility] [address] [place], [address] WBC (Bld) [#/Vol] 11.5 10*3/uL High 4.4-11.0 [facility] Comment on above: Performed By: #### L 506.0400, L500.4050, L501.9520, BTSPAT, L100.0500 ####[facility] [address] [place], [address] Comprehensive Metabolic Prof ilon 12-15-2024 Albumin [Mass/Vol] 4.3 g/dL Normal 3.4-4.8 [facility] Comment on above: Performed By: #### L 506.0400, L500.4050, L501.9520, BTSPAT, L100.0500 ####[facility] [address] [place], [address] Albumin/Globulin [Mass ratio] 1.4 {ratio} Normal 0.9-2.4 [facility] Comment on above: Performed By: #### L 506.0400, L500.4050, L501.9520, BTSPAT, L100.0500 ####[facility] [address] [place], [address] ALK PHOS 106 U/L High 35-104 [facility] Comment on above: Performed By: #### L 506.0400, L500.4050, L501.9520, BTSPAT, L100.0500 ####[facility] [address] [place], [address] ALT [Catalytic activity/Vol] 15 U/L Normal <=34 [facility] Comment on above: Performed By: #### L 506.0400, L500.4050, L501.9520, BTSPAT, L100.0500 ####[facility] [address] [place], [address] AST [Catalytic activity/Vol] 19 U/L Normal <=31 [facility] Comment on above: Performed By: #### L 506.0400, L500.4050, L501.9520, BTSPAT, L100.0500 ####[facility] [address] [place], [address] Bilirubin [Mass/Vol] 0.49 mg/dL Normal 0.00-1.30 [facility] Comment on above: Performed By: #### L 506.0400, L500.4050, L501.9520, BTSPAT, L100.0500 ####[facility] [address] [place], [address] BUN/CRE 26.0 RATIO High 10-20 [facility] Comment on above: Performed By: #### L 506.0400, L500.4050, L501.9520, BTSPAT, L100.0500 ####[facility] [address] [place], [address] Calcium [Mass/Vol] 9.7 mg/dL Normal 7.6-11.0 [facility] Comment on above: Performed By: #### L 506.0400, L500.4050, L501.9520, BTSPAT, L100.0500 ####[facility] [address] [place], [address] Chloride [Moles/Vol] 101 mmol/L Normal 98-108 [facility] Comment on above: Performed By: #### L 506.0400, L500.4050, L501.9520, BTSPAT, L100.0500 ####[facility] [address] [place], [address] CO2 [Moles/Vol] 24.6 mmol/L Normal 21.0-32.0 [facility] Comment on above: Performed By: #### L 506.0400, L500.4050, L501.9520, BTSPAT, L100.0500 ####[facility] [address] [place], [address] Creatinine [Mass/Vol] 0.72 mg/dL Normal 0.70-1.20 [facility] Comment on above: Performed By: #### L 506.0400, L500.4050, L501.9520, BTSPAT, L100.0500 ####[facility] [address] [place], [address] GAP 11 Normal 5-15 [facility] Comment on above: Performed By: #### L 506.0400, L500.4050, L501.9520, BTSPAT, L100.0500 ####[facility] [address] [place], [address] GFR/1.73 sq M.predicted among non-blacks MDRD (S/P/Bld) [Vol rate/Area] 90 mL/min/{1.73_m2} Normal >60 [facility] Comment on above: Result Comment: mL/m in/1.73m2 CKD-EPI Creatinine Equation (2020) Performed By: #### L 506.0400, L500.4050, L501.9520, BTSPAT, L100.0500 ####[facility] [address] [place], [address] Globulin (S) [Mass/Vol] 3.2 g/dL Normal 2.2-4.2 [facility] Comment on above: Performed By: #### L 506.0400, L500.4050, L501.9520, BTSPAT, L100.0500 ####[facility] [address] [place], [address] Glucose [Mass/Vol] 148 mg/dL High 70-99 [facility] Comment on above: Performed By: #### L 506.0400, L500.4050, L501.9520, BTSPAT, L100.0500 ####[facility] [address] [place], [address] Potassium [Moles/Vol] 4.1 mmol/L Normal 3.3-5.1 [facility] Comment on above: Performed By: #### L 506.0400, L500.4050, L501.9520, BTSPAT, L100.0500 ####[facility] [address] [place], [address] Sodium [Moles/Vol] 137 mmol/L Normal 133-145 [facility] Comment on above: Performed By: #### L 506.0400, L500.4050, L501.9520, BTSPAT, L100.0500 ####[facility] [address] [place], [address] T PROT 7.5 g/dL Normal 5.9-8.4 [facility] Comment on above: Performed By: #### L 506.0400, L500.4050, L501.9520, BTSPAT, L100.0500 ####[facility] [address] [place], [address] Urea nitrogen [Mass/Vol] 19 mg/dL Normal 4-19 [facility] Comment on above: Performed By: #### L 506.0400, L500.4050, L501.9520, BTSPAT, L100.0500 ####[facility] [address] [place], [address] Hemoglobin A1con 12-15-2024 HbA1c (Bld) [Mass fraction] 7.9 % Normal <=5.6 [facility] Comment on above: Performed By: #### L 501.5200, L501.9985 ####[facility] [address] [place], [address] Hemoglobin A1c percentageOrd ered By: Daniel Cesar on 12-15-2024 HbA1c (Bld) [Mass fraction] 7.9 % >5.7 [facility] Laboratory - Chemistry and C hemistry - challengeOrdered By: Anushka Isaac on 12-15-2024 AST [Catalytic activity/Vol] 19 U/L <32 [facility] MR/PAT.ANEon 12-15-2024 MR/PAT.ANE Normal [facility] Magnesiumon 12-15-2024 Magnesium [Mass/Vol] 1.8 mg/dL Normal 1.5-2.2 [facility] Comment on above: Performed By: #### L 501.5200, L501.9985 ####[facility] [address] [place], [address] Magnesium (Unsp spec) [Mass/ Vol]Ordered By: Daniel Cesar on 12-15-2024 Magnesium [Mass/Vol] 1.8 mg/dL 1.5-2.2 [facility] Magnesium measurement (mass/ volume)Ordered By: Daniel Cesar on 12-15-2024 Magnesium (Unsp spec) [Mass/Vol] 1.8 mg/dL 1.5-2.2 [facility] Serum globulin measurementOr dered By: Anushka Isaac on 12-15-2024 Globulin (S) [Mass/Vol] 3.2 g/dL 2.2-4.[address] [facility] Serum or plasma alanine méndez otransferase (ALT) measurementOrdered By: Anushka Isaac on 12-15-2024 ALT [Catalytic activity/Vol] 15 U/L <35 [facility] Serum or plasma albumin mulugeta urement (mass/volume)Ordered By: Anushka Isaac on 12-15-2024 Albumin [Mass/Vol] 4.3 g/dL 3.4-4.8 [facility] Serum or plasma albumin/glob ulin mass ratioOrdered By: Anushka Isaac on 12-15-2024 Albumin/Globulin [Mass ratio] 1.4 {ratio} 0.9-2.4 [facility] Serum or plasma alkaline umm sphatase measurementOrdered By: Anushka Isaac on 12-15-2024 ALP [Catalytic activity/Vol] 106 U/L High 35-104 [facility] T4 Free Directon 12-15-2024 T4 FREE DIRECT 0.80 ng/dL Normal 0.76-1.46 [facility] Comment on above: Performed By: #### L 506.0400, L500.4050, L501.9520, BTSPAT, L100.0500 ####[facility] [address] [place], [place], [id number] T4 freeOrdered By: Anushka gerard on 12-15-2024 Free T4 [Mass/Vol] 0.80 ng/dL 0.76-1.46 [facility] TSH DL <= 0.005 mIU/L QnOrde red By: Anushka Isaac on 12-15-2024 Thyroid Stimulating Hormone (TSH) 0.836 uIU/mL 0.300-4.200 [facility] TSH Qn 0.836 uIU/mL 0.300-4.200 [facility] Thyroid Stim Hormone (TSH)on 12-15-2024 TSH 0.836 uIU/mL Normal 0.300-4.200 [facility] Comment on above: Performed By: #### L 506.0400, L500.4050, L501.9520, BTSPAT, L100.0500 ####[facility] [address] [place], [place], [address] Total proteinOrdered By: Jas Isaac on 12-15-2024 Protein [Mass/Vol] 7.5 g/dL 5.9-8.4 [facility] Type AND Screen - PAT ONLYon 12-15-2024 ABO and Rh group Nom (Bld) Blood group A Rh(D) positive Normal [facility] Comment on above: Order Comment: Surge ry Date: 12/27/24Reason for Laboratory Test [id number] VAG HYSTER Performed By: #### L 506.0400, L500.4050, L501.9520, BTSPAT, L100.0500 ####[facility] [address] [place], [place], [address] CNOVon 12-14-2024 CNOV Office Visit (FAMPWS ) DEONTE BLANCO ([id number]) 1955 F Date Time Provider Department 12/14/24 [...] you start this for your diabetes Preet Farrar, DO 12/14/2024 12:07 PM Signed Patient presents with: Pre-Op Exam: hysterectomy HPI: Deonte Blanco is a 69 year old female [...] insurance. She has upcoming MEREDITH with Dr. Isaac She denies any CP or dyspnea or [...] time. She does not check BP's generally. Deonte likes to exercise by walking on treadmill. [...] mouth t (more content not included)... Normal [facility] CNPNon 12-14-2024 DEREKN Telephone (FAMPWS) FRANCISDEONTE ([id number]) 1955 F Date Time Provider Department 12/14/24 [facility] During your visit today, we recorded the [...] patient with reply. OLVIN Mujica Alyson Taylor, APRN.DEREK 12/14/2024 5:14 PM Signed Ok to use generic form. Yes, I would wait to start new medication until after recovery of surgery. Thank you, Jacqueline Candelario APRN.Sahara Reddy LPN 12/14/2024 5:37 PM Signed Pt. wants Trulicity sent to [facility]. Insurance won't pay for Victoza. Jacqueline Canedlario APRN.DEREK 12/14/2024 5:40 PM Signed The following approved medication requests have been transmitted electronically. Requested Prescriptions Signed Prescriptions Disp Refills dulaglutide (TRULICITY) 0.75 mg/0.5 mL pen injector 6 mL 2 Sig: Inject 0.75 mg subcutaneously one time a week. Authorizing Provider: JACQUELINE CANDELARIO APRN.BILLBOARD POSTER Allergies As of Date: 12/14/2024 Noted Allergy [...] on fasting at 8 am - Insulin [place], Disposable, (BD ULTRA-FINE MARIA T PEN NEEDLE) [...] left [M77.02] more content not included)... Normal [facility] Director Experimental Medicine Office Visit Reporton 12-12-2024 Director Experimental Medicine Office Visit Report Normal [facility] CREATININE, 24 HOUR URINEon 11-18-2024 Creatinine (24H U) [Mass/Time] 1.125 g/24 hr Normal 0.800-1.800 [facility] Comment on above: Order Comment: Speci men Type: URINE SPECIMENOrdering Facility: [facility] Address: [address] [place] [address] Performed By: #### U CRD ####[facility] LABCLIA [id number] [place] [address] [place] PERIOD (HRS) [address] [facility] Comment on above: Order Comment: Speci men Type: URINE SPECIMENOrdering Facility: [facility] Address: [address] [place] [address] Performed By: #### U CRD ####[facility] LABCLIA [id number] [address] [place] Specimen volume (24H U) 1.5 L Normal C [facility] Comment on above: Order Comment: Speci men Type: URINE SPECIMENOrdering Facility: [facility] Address: [address] [place] [address] Performed By: #### U CRD ####[facility] LABCLIA [id number] [address] [place] URINE FREE CORTISOL BY LC-MS /MSon 11-18-2024 CORTISOL UG/G IT AUDITOR, UR (UFRCRT) 28.27 ug/g IT AUDITOR Normal [facility] Comment on above: Order Comment: Speci men Type: URINE SPECIMENOrdering Facility: [facility] Address: [address] [place] [address] Result Comment: Refe rence Interval: Cortisol ug/g melt room operator Female Prepubertal: Less than 25 ug/g melt room operator 18 years and older: Less than 24 ug/g melt room operator : Less than 59 ug/g melt room operator Male Prepubertal: Less than 25 ug/g melt room operator 18 years and older: Less than 32 ug/g melt room operator Performed By: #### U FRCRT ####[facility]IES[facility] [id number] [place] [address] CREATININE, URINE PER 24H 1215 mg/d Normal 500-1400 [facility] Comment on above: Order Comment: Speci men Type: URINE SPECIMENOrdering Facility: [facility] Address: [address] [place] [address] Performed By: #### U FRCRT ####[facility]IESCLIA [id number] [place] [address] CREATININE, URINE PER VOLUME 81 mg/dL Normal [facility] Comment on above: Order Comment: Speci men Type: URINE SPECIMENOrdering Facility: [facility] Address: [address] [place] [address] Performed By: #### U FRCRT ####[facility]IESCLIA [id number] [place] [address] FREE CORTISOL UG/DAY, URINE 34.4 ug/d Normal <=45.0 [facility] Comment on above: Order Comment: Speci men Type: URINE SPECIMENOrdering Facility: [facility] Address: [address] [place] [address] Performed By: #### U FRCRT ####[facility]IESCLIA [id number] [place] [address] FREE CORTISOL UG/L, URINE 22.90 ug/L Normal [facility] Comment on above: Order Comment: Speci men Type: URINE SPECIMENOrdering Facility: [facility] Address: [address] [place] [address] Performed By: #### U FRCRT ####[facility]IES[facility] [id number] [place] [address] HOURS COLLECTED [address] [facility] Comment on above: Order Comment: Speci men Type: URINE SPECIMENOrdering Facility: [facility] Address: [address] [place] [address] Result Comment: Per 24h calculations are provided to aid interpretation for collections with a duration of 24 hours and an average daily urine volume. For specimens with notable deviations in collection time or volume, ratios of analytes to a corresponding urine creatinine concentration may assist in result interpretation. Performed By: #### U FRCRT ####[facility]IESCL[facility] [id number] [place] [address] TOTAL VOLUME [address] [facility] Comment on above: Order Comment: Speci men Type: URINE SPECIMENOrdering Facility: [facility] Address: [address] [place] [address] Performed By: #### U FRCRT ####[facility] LABORATORIESCLIA [id number] [place] [id number] UR YENNY FREE INTERP See Note Normal [facility] Comment on above: Order Comment: Speci men Type: URINE SPECIMENOrdering Facility: [facility] Address: [address] [place] [address] Result Comment: INTE RPRETIVE INFORMATION: Cortisol Urine Free by LC-MS/MS Access complete set of age- and/or gender-specific reference intervals for this test in the [facility] Test Directory (Smart Wire Grid). This test was developed and its performance characteristics determined by [facility]. It has not been cleared or approved by the [place] Food and Drug Administration. This test was performed in a CLIA certified laboratory and is intended for clinical purposes. Performed By: [facility] [address] [place] [address] Application Security Developer: Suresh Rothman MD, PhD CLIA Number: [id number] Performed By: #### U FRCRT ####[facility] LABORATORIESCLIA [id number] [place] [address] THYROXIN, FR BY [facility]/ [facility] FREE T4 BY EQ DIALYSIS 1.2 ng/dL Normal 1.1-2.4 [facility] Comment on above: Order Comment: Speci men Type: BLOOD SPECIMENOrdering Facility: [facility] Address: [address] [place] [address] Result Comment: FREE T4 BY EQUIL DIALYSIS-TMS: REFERENCE INTERVALS 1ST TRIMESTER ...... 0.7 - 2.0 ng/dL 2ND TRIMESTER ...... 0.7 - 2.1 ng/dL 3RD TRIMESTER ...... 0.5 - 1.6 ng/dL INTERPRETIVE INFORMATION: FT4 ED-TMS Some medications may induce transient changes in FT4 concentrations. This test is not recommended for patients currently on heparin treatment as FT4 concentrations may be falsely elevated. Performed By: [facility] [address] [place] [address] Application Security Developer: Suresh Rothman MD, PhD CLIA Number: [id number] Performed By: #### T 4HPLC ####[facility]IESCLIA [id number] [place] [address] TSH SerPl-aCncon 11-16-2024 TSH Qn 1.180 m[IU]/L Normal 0.270-4.200 [facility] Comment on above: Order Comment: Speci men Type: BLOOD SPECIMENOrdering Facility: [facility] Address: [address] [place] [address] Performed By: #### 3 016-3 ####[facility] LABCLIA [id number] [facility] [id number] OF [facility] CNOVon 11-11-2024 CNOV Office Visit (ENWSTR ) DEONTE BLANCO ([id number]) 1955 F Date Time Provider Department 11/11/24 9:40 AM BEAN ISAAC ENWSTR During your visit today, we recorded the following information about you: Temperature Pulse Blood pressure Weight 97.1 degrees 89/minute 124/74 81.6 kg Bean Isaac MD 11/11/2024 6:16 PM Signed [facility] Follow up note Referred by: PCP- Preet Farrar DO History of Present illness: Deonte G Francis is a 69 year old female [...] carbs . Lifestyle -Exercise: 30 mins on [employer] daily -Diet: Breakfast: 3 eggs, 1 slice [...] weakness, cramp (more content not included)... Normal [facility] GLOOKO ON DEMANDon Ordered by an unspecified provider. [facility] CBC W Auto Differential pane l (Bld)on 11-07-2024 Basophils (Bld) [#/Vol] 0.07 10*3/uL Normal <0.11 [facility] Comment on above: Order Comment: Speci men Type: BLOOD SPECIMENOrdering Facility: [facility] Address: [address] [place] [address] Performed By: #### 5 7021-8 ####[facility] LABCLIA [id number] [place] [address] [place] Basophils/100 WBC (Bld) 0.7 % Normal [facility] Comment on above: Order Comment: Speci men Type: BLOOD SPECIMENOrdering Facility: [facility] Address: [address] [place] [address] Performed By: #### 5 7021-8 ####[facility] LABCLIA [id number] [place] [address] [place] Differential cell count method Nom (Bld) Auto Normal [facility] Comment on above: Order Comment: Speci men Type: BLOOD SPECIMENOrdering Facility: [facility] Address: [address] [place] [address] Performed By: #### 5 7021-8 ####[facility] LABCLIA [id number] [place] [address] [place] Eosinophils (Bld) [#/Vol] 0.25 10*3/uL Normal <0.46 [facility] Comment on above: Order Comment: Speci men Type: BLOOD SPECIMENOrdering Facility: [facility] Address: [address] [place] [address] Performed By: #### 5 7021-8 ####[facility] LABCLIA [id number] [place] [address] [place] Eosinophils/100 WBC (Bld) 2.6 % Normal [facility] Comment on above: Order Comment: Speci men Type: BLOOD SPECIMENOrdering Facility: [facility] Address: [address] [place] [address] Performed By: #### 5 7021-8 ####[facility] LABCLIA [id number] [place] [address] [place] Erythrocyte distribution width (RBC) [Ratio] 13.3 % Normal 11.5-15.0 [facility] Comment on above: Order Comment: Speci men Type: BLOOD SPECIMENOrdering Facility: [facility] Address: [address] [place] [address] Performed By: #### 5 7021-8 ####[facility] LABCLIA [id number] [place] [address] [place] Hematocrit (Bld) [Volume fraction] 40.9 % Normal 36.0-46.0 [facility] Comment on above: Order Comment: Noryi men Type: BLOOD SPECIMENOrdering Facility: [facility] Address: [address] [place] [address] Performed By: #### 5 7021-8 ####[facility] LABCLIA [id number] [place] [address] [place] Hemoglobin (Bld) [Mass/Vol] 13.3 g/dL Normal 11.5-15.5 [facility] Comment on above: Order Comment: Noryi men Type: BLOOD SPECIMENOrdering Facility: [facility] Address: [address] [place] [address] Performed By: #### 5 7021-8 ####[facility] LABCLIA [id number] [place] [address] [place] Immature granulocytes (Bld) [#/Vol] 0.07 10*3/uL Normal <0.10 [facility] Comment on above: Order Comment: Speci men Type: BLOOD SPECIMENOrdering Facility: [facility] Address: [address] [place] [address] Performed By: #### 5 7021-8 ####[facility] LABCLIA [id number] [place] [address] [place] Immature granulocytes/100 WBC (Bld) 0.7 % Normal [facility] Comment on above: Order Comment: Speci men Type: BLOOD SPECIMENOrdering Facility: [facility] Address: [address] [place] [address] Performed By: #### 5 7021-8 ####[facility] LABCLIA [id number] [place] [address] [place] Lymphocytes (Bld) [#/Vol] 2.00 10*3/uL Normal 1.00-4.00 [facility] Comment on above: Order Comment: Speci men Type: BLOOD SPECIMENOrdering Facility: [facility] Address: [address] [place] [address] Performed By: #### 5 7021-8 ####[facility] LABCLIA [id number] [place] [address] [place] Lymphocytes/100 WBC (Bld) 20.5 % Normal [facility] Comment on above: Order Comment: Speci men Type: BLOOD SPECIMENOrdering Facility: [facility] Address: [address] [place] [address] Performed By: #### 5 7021-8 ####[facility] LABCLIA [id number] [place] [address] [place] MCH (RBC) [Entitic mass] 30.2 pg Normal 26.0-34.0 [facility] Comment on above: Order Comment: Speci men Type: BLOOD SPECIMENOrdering Facility: [facility] Address: [address] [place] [address] Performed By: #### 5 7021-8 ####[facility] LABCLIA [id number] [place] [address] [place] MCHC (RBC) [Mass/Vol] 32.5 g/dL Normal 30.5-36.0 [facility] Comment on above: Order Comment: Speci men Type: BLOOD SPECIMENOrdering Facility: [facility] Address: [address] [place] [address] Performed By: #### 5 7021-8 ####[facility] LABCLIA [id number] [place] [address] [place] MCV (RBC) [Entitic vol] 93.0 fL Normal 80.0-100.0 [facility] Comment on above: Order Comment: Speci men Type: BLOOD SPECIMENOrdering Facility: [facility] Address: [address] [place] [address] Performed By: #### 5 7021-8 ####[facility] LABCLIA [id number] [place] [address] [place] Monocytes (Bld) [#/Vol] 0.87 10*3/uL High <0.87 [facility] Comment on above: Order Comment: Speci men Type: BLOOD SPECIMENOrdering Facility: [facility] Address: [address] [place] [address] Performed By: #### 5 7021-8 ####[facility] LABCLIA [id number] [place] [address] [place] Monocytes/100 WBC (Bld) 8.9 % Normal C [facility] Comment on above: Order Comment: Speci men Type: BLOOD SPECIMENOrdering Facility: [facility] Address: [address] [place] [address] Performed By: #### 5 7021-8 ####[facility] LABCLIA [id number] [place] [address] [place] Neutrophils (Bld) [#/Vol] 6.48 10*3/uL Normal 1.45-7.50 [facility] Comment on above: Order Comment: Speci men Type: BLOOD SPECIMENOrdering Facility: [facility] Address: [address] [place] [address] Performed By: #### 5 7021-8 ####[facility] LABCLIA [id number] [place] [address] [place] Neutrophils/100 WBC (Bld) 66.6 % Normal [facility] Comment on above: Order Comment: Speci men Type: BLOOD SPECIMENOrdering Facility: [facility] Address: [address] [place] [address] Performed By: #### 5 7021-8 ####[facility] LABCLIA [id number] [place] [address] [place] Nucleated RBC (Bld) [#/Vol] 10*3/uL Normal <0.01 [facility] Comment on above: Order Comment: Speci men Type: BLOOD SPECIMENOrdering Facility: [facility] Address: [address] [place] [address] Performed By: #### 5 7021-8 ####[facility] LABCLIA [id number] [place] [address] [place] Nucleated RBC/100 WBC (Bld) [Ratio] 0.0 /[address] [facility] Comment on above: Order Comment: Speci men Type: BLOOD SPECIMENOrdering Facility: [facility] Address: [address] [place] [address] Performed By: #### 5 7021-8 ####[facility] LABCLIA [id number] [place] [address] [place] Platelet mean volume (Bld) [Entitic vol] 9.9 fL Normal 9.0-12.7 [facility] Comment on above: Order Comment: Speci men Type: BLOOD SPECIMENOrdering Facility: [facility] Address: [address] [place] [address] Performed By: #### 5 7021-8 ####[facility] LABCLIA [id number] [place] [address] [place] Platelets (Bld) [#/Vol] 314 10*3/uL Normal 150-400 [facility] Comment on above: Order Comment: Speci men Type: BLOOD SPECIMENOrdering Facility: [facility] Address: [address] [place] [address] Performed By: #### 5 7021-8 ####[facility] LABCLIA [id number] [place] [address] [place] RBC (Bld) [#/Vol] 4.40 10*6/uL Normal 3.90-5.20 [facility] Comment on above: Order Comment: Speci men Type: BLOOD SPECIMENOrdering Facility: [facility] Address: [address] [place] [address] Performed By: #### 5 7021-8 ####[facility] LABIA [id number] [place] [address] [place] WBC (Bld) [#/Vol] 9.74 10*3/uL Normal 3.70-11.00 [facility] Comment on above: Order Comment: Speci men Type: BLOOD SPECIMENOrdering Facility: [facility] Address: [address] [place] [address] Performed By: #### 5 7021-8 ####[facility] LABIA [id number] [place] [address] [place] Ferritin SerPl-mCncon 2024 Ferritin [Mass/Vol] 39.0 ng/mL Normal 14.7-205.1 [facility] Comment on above: Order Comment: Speci men Type: BLOOD SPECIMENOrdering Facility: [facility] Address: [address] [place] [address] Performed By: #### 2 276-4, 68219-0, 3084-1, 79743-2 ####[facility] LABIA [id number] [place] [address] [place] Iron and Iron binding capaci ty panelon 11-07-2024 Iron [Mass/Vol] 62 ug/dL Normal 41-186 [facility] Comment on above: Order Comment: Speci men Type: BLOOD SPECIMENOrdering Facility: [facility] Address: [address] [place] [address] Performed By: #### 2 276-4, 60101-6, 3084-1, 62689-4 ####[facility] LABCLIA [id number] [place] [address] [place] Iron binding capacity [Mass/Vol] 404 ug/dL High 232-386 [facility] Comment on above: Order Comment: Speci men Type: BLOOD SPECIMENOrdering Facility: [facility] Address: [address] [place] [address] Performed By: #### 2 276-4, 97127-0, 3084-1, 21426-5 ####[facility] LABCLIA [id number] [place] [id number] [place] Iron/TIBC [Molar ratio] 15.3 % Normal 15.0-57.0 [facility] Comment on above: Order Comment: Speci men Type: BLOOD SPECIMENOrdering Facility: [facility] Address: [address] [place] [address] Performed By: #### 2 276-4, 49545-0, 3084-1, 55118-9 ####[facility] LABCLIA [id number] [place] [id number] [place] [facility] Parathyrin.intact [Mass/Vol] 42 pg/mL Normal 15-65 [facility] Comment on above: Order Comment: Speci men Type: BLOOD SPECIMENOrdering Facility: [facility] Address: [address] [place] [address] Performed By: #### 2 731-8 ####[facility] LABIA [id number] [address] [address] [place] Prot/Creat Uron 11-07-2024 Protein/Creatinine (U) [Mass ratio] 0.08 mg/mg Normal <0.15 [facility] Comment on above: Order Comment: Speci men Type: URINE SPECIMENOrdering Facility: [facility] Address: [address] [place] [address] Result Comment: Adul t Proteinuria Categories: <0.15 mg/mg is considered normal to mildly increased 0.15 - 0.50 mg/mg is considered moderately increased >0.50 mg/mg is considered severely increased KDIGO. (2013). KDIGO 2012 Clinical Practice Guideline for the Evaluation and Management of Chronic Kidney Disease. Official Journal of the International Society of Nephrology, 3(1), 1-150. Performed By: #### 2 890-2 ####[facility] LABIA [id number] [place] [address] [place] Protein/Creatinine (U) [Mass ratio]on 11-07-2024 Creatinine (U) [Mass/Vol] 64.2 mg/dL Normal 20.0-300.0 [facility] Comment on above: Order Comment: Speci men Type: URINE SPECIMENOrdering Facility: [facility] Address: [address] [place] [address] Performed By: #### 2 890-2 ####[facility] LABIA [id number] [place] [id number] [place] Protein (U) [Mass/Vol] 5 mg/dL Normal 0-20 [facility] Comment on above: Order Comment: Speci men Type: URINE SPECIMENOrdering Facility: [facility] Address: [address] [place] [address] Performed By: #### 2 890-2 ####[facility] LABIA [id number] [address] [address] [place] Renal function 2000 panelon 11-07-2024 Albumin [Mass/Vol] 4.2 g/dL Normal 3.9-4.9 [facility] Comment on above: Order Comment: Speci men Type: BLOOD SPECIMENOrdering Facility: [facility] Address: [address] [place] [address] Performed By: #### 2 276-4, 48847-7, 3084-1, 66726-8 ####[facility] LABCLIA [id number] [address] [address] [place] Anion gap [Moles/Vol] 11 mmol/L Normal 8-15 [facility] Comment on above: Order Comment: Speci men Type: BLOOD SPECIMENOrdering Facility: [facility] Address: [address] [place] [address] Performed By: #### 2 276-4, 06372-1, 3084-1, 55482-4 ####[facility] LABCLIA [id number] [address] [address] [place] Calcium [Mass/Vol] 9.8 mg/dL Normal 8.5-10.2 [facility] Comment on above: Order Comment: Speci men Type: BLOOD SPECIMENOrdering Facility: [facility] Address: [address] [place] [address] Performed By: #### 2 276-4, 21144-2, 3084-1, 15019-4 ####[facility] LABCLIA [id number] [address] [address] [place] Chloride [Moles/Vol] 98 mmol/L Normal 98-107 [facility] Comment on above: Order Comment: Speci men Type: BLOOD SPECIMENOrdering Facility: [facility] Address: [address] [place] [address] Performed By: #### 2 276-4, 54371-4, 3084-1, 50063-7 ####[facility] LABCLIA [id number] [address] [address] [place] CO2 [Moles/Vol] 25 mmol/L Normal 22-30 [facility] Comment on above: Order Comment: Speci men Type: BLOOD SPECIMENOrdering Facility: [facility] Address: [address] [place] [address] Performed By: #### 2 276-4, 41337-9, 3084-, 56548-3 ####[facility] LABCLIA [id number] [place] [id number] [place] Creatinine [Mass/Vol] 0.72 mg/dL Normal 0.58-0.96 [facility] Comment on above: Order Comment: Speci men Type: BLOOD SPECIMENOrdering Facility: [facility] Address: [address] [place] [address] Performed By: #### 2 276-4, 08042-8, 3084-, 46905-2 ####[facility] LABIA [id number] [place] [address] [place] Creatinine and Glomerular filtration rate.predicted panel (S/P/Bld) 91 mL/min/1.73m??? Normal >=60 [facility] Comment on above: Order Comment: Abimbola [facility] Type: BLOOD SPECIMENOrdering Facility: [facility] Address: [address] [place] [address] Result Comment: Ana Paula mated Glomerular Filtration [...] actual GFR. Performed By: #### 2 276-4, 81201-1, 3084-1, 68835-9 ####[facility] LABIA [id number] [address] [address] [place] Glucose [Mass/Vol] 237 mg/dL High 74-99 [facility] Comment on above: Order Comment: Noryi men Type: BLOOD SPECIMENOrdering Facility: [facility] Address: [address] [place] [address] Result Comment: The [place] Diabetes Association (ADA) provides guidance for cutoff [...] Standards of Medical Care in Diabetes 2016, [place] [employer]. Diabetes Care. 2016.39(Suppl 1). Performed By: #### 2 276-4, 62392-6, 3084-1, 67484-2 ####[facility] LABCLIA [id number] [place] [address] [place] Phosphate [Mass/Vol] 3.5 mg/dL Normal 2.7-4.8 [facility] Comment on above: Order Comment: Abimbola diaz Type: BLOOD SPECIMENOrdering Facility: [facility] Address: [address] [place] [address] Performed By: #### 2 276-4, 91436-0, 3084-, 63790-3 ####[facility] [id number] [place] [address] [place] Potassium [Moles/Vol] 4.6 mmol/L Normal 3.7-5.1 [facility] Comment on above: Order Comment: Abimbola diaz Type: BLOOD SPECIMENOrdering Facility: [facility] Address: [address] [place] [address] Performed By: #### 2 276-4, 21977-5, 3084-1, 09623-0 ####[facility] LABIA [id number] [place] [id number] [place] Sodium [Moles/Vol] 134 mmol/L Low 136-144 [facility] Comment on above: Order Comment: Abimbola diaz Type: BLOOD SPECIMENOrdering Facility: [facility] Address: [address] [place] [address] Performed By: #### 2 276-4, 56640-9, 3084-1, 49358-2 ####[facility] LABCLIA [id number] [place] [id number] [place] Urea nitrogen [Mass/Vol] 18 mg/dL Normal 7-21 [facility] Comment on above: Order Comment: Speci men Type: BLOOD SPECIMENOrdering Facility: [facility] Address: [address] [place] [address] Performed By: #### 2 276-4, 69928-3, 3084-1, 15214-1 ####[facility] LABCLIA [id number] [place] [address] [place] Urate SerPl-mCncon 5 Urate [Mass/Vol] 3.4 mg/dL Normal 2.5-6.6 [facility] Comment on above: Order Comment: Speci men Type: BLOOD SPECIMENOrdering Facility: [facility] Address: [address] [place] [address] Performed By: #### 2 276-4, 94540-6, 3084, 97486-4 ####[facility] LABCLIA [id number] [place] [id number] [place] Echo Completeon 10-10-2024 Echo Complete Normal [facility] Stress Reporton 10-10-2024 Stress Report Normal [facility] CNOVon 10-07-2024 CNOV Office Visit (FAMPWS ) DEONTE BLANCO ([id number]) 1955 F Date Time Provider Department 10/07/24 11:00 AM PREET FARRAR FAMPWS During your visit today, we recorded the following information about you: Temperature Pulse Respiration Blood pressure 97 degrees 64/minute 20/minute 116/60 Weight Height 82.6 kg 1.55 m Preet Farrar DO 10/08/2024 8:39 AM Signed Deonte Blanco is a 69 year old female [...] Patient presents with: Medicare Wellness Exam HPI: Deonte Blanco is a 69 year old female who presents to the office today for review of health conditions. Concerns today: She is starting to see Banking Management Consulting Manager for opinion regarding her thyroid and fatigue [...] a vaginal assisted total hysterectomy by Dr. Isaac on 12/27 upcoming. Hx of tobacco use [...] time. She does not check BP's generally. Deonte gets minimal exercise. PAST MEDICAL HISTORY (more content not included)... Normal [facility] CBC W Auto Differential pane l (Bld)on 10-05-2024 Basophils (Bld) [#/Vol] 0.07 10*3/uL Normal <0.11 [facility] Comment on above: Order Comment: Speci men Type: BLOOD SPECIMENOrdering Facility: [facility] Address: [address] [place] [address] Performed By: #### 5 7021-8 ####[facility] LABIA [id number] [place] [address] [place] Basophils/100 WBC (Bld) 0.7 % Normal [facility] Comment on above: Order Comment: Speci men Type: BLOOD SPECIMENOrdering Facility: [facility] Address: [address] [place] [address] Performed By: #### 5 7021-8 ####[facility] LABIA [id number] [place] [address] [place] Differential cell count method Nom (Bld) Auto Normal [facility] Comment on above: Order Comment: Speci men Type: BLOOD SPECIMENOrdering Facility: [facility] Address: [address] [place] [address] Performed By: #### 5 7021-8 ####[facility] LABIA [id number] [place] [address] [place] Eosinophils (Bld) [#/Vol] 0.21 10*3/uL Normal <0.46 [facility] Comment on above: Order Comment: Speci men Type: BLOOD SPECIMENOrdering Facility: [facility] Address: [address] [place] [address] Performed By: #### 5 7021-8 ####[facility] LABCLIA [id number] [place] [address] [place] Eosinophils/100 WBC (Bld) 2.2 % Normal [facility] Comment on above: Order Comment: Speci men Type: BLOOD SPECIMENOrdering Facility: [facility] Address: [address] [place] [address] Performed By: #### 5 7021-8 ####[facility] LABCLIA [id number] [place] [address] [place] Erythrocyte distribution width (RBC) [Ratio] 12.9 % Normal 11.5-15.0 [facility] Comment on above: Order Comment: Speci men Type: BLOOD SPECIMENOrdering Facility: [facility] Address: [address] [place] [address] Performed By: #### 5 7021-8 ####[facility] LABCLIA [id number] [place] [address] [place] Hematocrit (Bld) [Volume fraction] 39.9 % Normal 36.0-46.0 [facility] Comment on above: Order Comment: Speci men Type: BLOOD SPECIMENOrdering Facility: [facility] Address: [address] [place] [address] Performed By: #### 5 7021-8 ####[facility] LABCLIA [id number] [place] [address] [place] Hemoglobin (Bld) [Mass/Vol] 13.1 g/dL Normal 11.5-15.5 [facility] Comment on above: Order Comment: Speci men Type: BLOOD SPECIMENOrdering Facility: [facility] Address: [address] [place] [address] Performed By: #### 5 7021-8 ####[facility] LABCLIA [id number] [place] [address] [place] Immature granulocytes (Bld) [#/Vol] 0.06 10*3/uL Normal <0.10 [facility] Comment on above: Order Comment: Speci men Type: BLOOD SPECIMENOrdering Facility: [facility] Address: [address] [place] [address] Performed By: #### 5 7021-8 ####[facility] LABCLIA [id number] [place] [address] [place] Immature granulocytes/100 WBC (Bld) 0.6 % Normal [facility] Comment on above: Order Comment: Speci men Type: BLOOD SPECIMENOrdering Facility: [facility] Address: [address] [place] [address] Performed By: #### 5 7021-8 ####[facility] LABCLIA [id number] [place] [address] [place] Lymphocytes (Bld) [#/Vol] 2.55 10*3/uL Normal 1.00-4.00 [facility] Comment on above: Order Comment: Speci men Type: BLOOD SPECIMENOrdering Facility: [facility] Address: [address] [place] [address] Performed By: #### 5 7021-8 ####[facility] LABCLIA [id number] [place] [address] [place] Lymphocytes/100 WBC (Bld) 26.4 % Normal [facility] Comment on above: Order Comment: Speci men Type: BLOOD SPECIMENOrdering Facility: [facility] Address: [address] [place] [address] Performed By: #### 5 7021-8 ####[facility] LABCLIA [id number] [place] [address] [place] MCH (RBC) [Entitic mass] 30.2 pg Normal 26.0-34.0 [facility] Comment on above: Order Comment: Speci men Type: BLOOD SPECIMENOrdering Facility: [facility] Address: [address] [place] [address] Performed By: #### 5 7021-8 ####[facility] LABCLIA [id number] [place] [address] [place] MCHC (RBC) [Mass/Vol] 32.8 g/dL Normal 30.5-36.0 [facility] Comment on above: Order Comment: Speci men Type: BLOOD SPECIMENOrdering Facility: [facility] Address: [address] [place] [address] Performed By: #### 5 7021-8 ####[facility] LABIA [id number] [place] [address] [place] MCV (RBC) [Entitic vol] 91.9 fL Normal 80.0-100.0 [facility] Comment on above: Order Comment: Speci men Type: BLOOD SPECIMENOrdering Facility: [facility] Address: [address] [place] [address] Performed By: #### 5 7021-8 ####[facility] LABIA [id number] [place] [address] [place] Monocytes (Bld) [#/Vol] 0.70 10*3/uL Normal <0.87 [facility] Comment on above: Order Comment: Speci men Type: BLOOD SPECIMENOrdering Facility: [facility] Address: [address] [place] [address] Performed By: #### 5 7021-8 ####[facility] LABIA [id number] [place] [address] [place] Monocytes/100 WBC (Bld) 7.3 % Normal C [facility] Comment on above: Order Comment: Speci men Type: BLOOD SPECIMENOrdering Facility: [facility] Address: [address] [place] [address] Performed By: #### 5 7021-8 ####[facility] LABIA [id number] [place] [address] [place] Neutrophils (Bld) [#/Vol] 6.06 10*3/uL Normal 1.45-7.50 [facility] Comment on above: Order Comment: Speci men Type: BLOOD SPECIMENOrdering Facility: [facility] Address: [address] [place] [address] Performed By: #### 5 7021-8 ####[facility] LABCLIA [id number] [place] [address] [place] Neutrophils/100 WBC (Bld) 62.8 % Normal [facility] Comment on above: Order Comment: Speci men Type: BLOOD SPECIMENOrdering Facility: [facility] Address: [address] [place] [address] Performed By: #### 5 7021-8 ####[facility] LABCLIA [id number] [place] [address] [place] Nucleated RBC (Bld) [#/Vol] 10*3/uL Normal <0.01 [facility] Comment on above: Order Comment: Speci men Type: BLOOD SPECIMENOrdering Facility: [facility] Address: [address] [place] [address] Performed By: #### 5 7021-8 ####[facility] LABCLIA [id number] [place] [address] [place] Nucleated RBC/100 WBC (Bld) [Ratio] 0.0 /[address] [facility] Comment on above: Order Comment: Speci men Type: BLOOD SPECIMENOrdering Facility: [facility] Address: [address] [place] [address] Performed By: #### 5 7021-8 ####[facility] LABIA [id number] [place] [address] [place] Platelet mean volume (Bld) [Entitic vol] 10.0 fL Normal 9.0-12.7 [facility] Comment on above: Order Comment: Speci men Type: BLOOD SPECIMENOrdering Facility: [facility] Address: [address] [place] [address] Performed By: #### 5 7021-8 ####[facility] LABCLIA [id number] [address] [address] [place] Platelets (Bld) [#/Vol] 327 10*3/uL Normal 150-400 [facility] Comment on above: Order Comment: Speci men Type: BLOOD SPECIMENOrdering Facility: [facility] Address: [address] [place], [place] [address] Performed By: #### 5 7021-8 ####[facility] LABIA [id number] [place] [address] [place] RBC (Bld) [#/Vol] 4.34 10*6/uL Normal 3.90-5.20 [facility] Comment on above: Order Comment: Speci men Type: BLOOD SPECIMENOrdering Facility: [facility] Address: [address] [place] [address] Performed By: #### 5 7021-8 ####[facility] LABIA [id number] [place] [id number] [place] WBC (Bld) [#/Vol] 9.65 10*3/uL Normal 3.70-11.00 [facility] Comment on above: Order Comment: Speci men Type: BLOOD SPECIMENOrdering Facility: [facility] Address: [address] [place], [place] [address] Performed By: #### 5 7021-8 ####[facility] LABIA [id number] [address] [address] [place] Comprehensive metabolic 2000 panelon 10-05-2024 Albumin [Mass/Vol] 3.9 g/dL Normal 3.9-4.9 [facility] Comment on above: Order Comment: Speci men Type: BLOOD SPECIMENOrdering Facility: [facility] Address: [address] [place] [address] Performed By: #### 2 4331-1, 3024-7, 33209-2, 305-0 ####[facility] LABCLIA [id number] [address] [address] [place] ALP [Catalytic activity/Vol] 92 U/L Normal 34-123 [facility] Comment on above: Order Comment: Speci men Type: BLOOD SPECIMENOrdering Facility: [facility] Address: [address] [place] [address] Performed By: #### 2 4331-1, 3023-7, 45409-4, 305-0 ####[facility] LABCLIA [id number] [address] [address] [place] ALT [Catalytic activity/Vol] 15 U/L Normal 7-38 [facility] Comment on above: Order Comment: Speci men Type: BLOOD SPECIMENOrdering Facility: [facility] Address: [address] [place] [address] Performed By: #### 2 4331-1, 3024-03, , 3050-0 ####[facility] LABIA [id number] [place] [address] [place] Anion gap [Moles/Vol] 11 mmol/L Normal 8-15 [facility] Comment on above: Order Comment: Speci men Type: BLOOD SPECIMENOrdering Facility: [facility] Address: [address] [place] [address] Performed By: #### 2 4331-1, 3024-03, , 3050-0 ####[facility] LABIA [id number] [address] [address] [place] AST [Catalytic activity/Vol] 18 U/L Normal 13-35 [facility] Comment on above: Order Comment: Speci men Type: BLOOD SPECIMENOrdering Facility: [facility] Address: [address] [place] [address] Performed By: #### 2 4331-1, 3023-7, 59412-0, 3051-0 ####[facility] LABCLIA [id number] [address] [address] [place] Bilirubin [Mass/Vol] 0.4 mg/dL Normal 0.2-1.3 [facility] Comment on above: Order Comment: Speci men Type: BLOOD SPECIMENOrdering Facility: [facility] Address: [address] [place] [address] Performed By: #### 2 4331-1, 302-7, 70945-4, 3050-0 ####[facility] LABCLIA [id number] [address] [address] [place] Calcium [Mass/Vol] 9.6 mg/dL Normal 8.5-10.2 [facility] Comment on above: Order Comment: Speci men Type: BLOOD SPECIMENOrdering Facility: [facility] Address: [address] [place] [address] Performed By: #### 2 4331-1, 302-7, 79226-0, 3050-0 ####[facility] LABIA [id number] [place] [address] [place] Chloride [Moles/Vol] 104 mmol/L Normal 98-107 [facility] Comment on above: Order Comment: Speci men Type: BLOOD SPECIMENOrdering Facility: [facility] Address: [address] [place] [address] Performed By: #### 2 4331-1, 3023-7, 38646-7, 3050-0 ####[facility] LABCLIA [id number] [address] [address] [place] CO2 [Moles/Vol] 23 mmol/L Normal 22-30 [facility] Comment on above: Order Comment: Speci men Type: BLOOD SPECIMENOrdering Facility: [facility] Address: [address] [place] [address] Performed By: #### 2 4331-1, 302-7, 93079-8, 305-0 ####[facility] LABCLIA [id number] [address] [address] [place] Creatinine [Mass/Vol] 0.64 mg/dL Normal 0.58-0.96 [facility] Comment on above: Order Comment: Abimbola diaz Type: BLOOD SPECIMENOrdering Facility: [facility] Address: [address] [place] [address] Performed By: #### 2 4331-1, 3024-7, 94965-0, 0 ####[facility] LABIA [id number] [address] [address] [place] Creatinine and Glomerular filtration rate.predicted panel (S/P/Bld) 96 mL/min/1.73m??? Normal >=60 [facility] Comment on above: Order Comment: Abimbola diaz Type: BLOOD SPECIMENOrdering Facility: [facility] Address: [address] [place] [address] Result Comment: Ana Paula mated Glomerular Filtration [...] actual GFR. Performed By: #### 2 4331-1, 4-7, 24056-8, 0 ####[facility] LABIA [id number] [address] [address] [place] Glucose [Mass/Vol] 170 mg/dL High 74-99 [facility] Comment on above: Order Comment: Abimbola diaz Type: BLOOD SPECIMENOrdering Facility: [facility] Address: [address] [place] [address] Result Comment: The [place] Diabetes Association (ADA) provides guidance for cutoff [...] Standards of Medical Care in Diabetes 2016, [place] Diabetes Association. Diabetes Care. 2016.39(Suppl 1). Performed By: #### 2 4331-1, 3027, 07574-4, 305-0 ####[facility] LABIA [id number] [address] [address] [place] Potassium [Moles/Vol] 4.4 mmol/L Normal 3.7-5.1 [facility] Comment on above: Order Comment: Speci men Type: BLOOD SPECIMENOrdering Facility: [facility] Address: [address] [place] [address] Performed By: #### 2 4331-1, 302-7, 09148-5, 305-0 ####[facility] [id number] [place] [address] [place] Protein [Mass/Vol] 6.8 g/dL Normal 6.3-8.0 [facility] Comment on above: Order Comment: Abimbola diaz Type: BLOOD SPECIMENOrdering Facility: [facility] Address: [address] [place], [place] [address] Performed By: #### 2 4331-1, 302-7, 17453-9, 305-0 ####[facility] [id number] [place] [id number] [place] Sodium [Moles/Vol] 138 mmol/L Normal 136-144 [facility] Comment on above: Order Comment: Noryi men Type: BLOOD SPECIMENOrdering Facility: [facility] Address: [address] [place], [place] [address] Performed By: #### 2 4331-1, 3024-7, 89661-1, 3051-0 ####[facility] LABCLIA [id number] [address] [address] [place] Urea nitrogen [Mass/Vol] 15 mg/dL Normal 7-21 [facility] Comment on above: Order Comment: Speci men Type: BLOOD SPECIMENOrdering Facility: [facility] Address: [address] [place] [address] Performed By: #### 2 4331-1, 3024-7, 46297-0, 305-0 ####[facility] LABIA [id number] [address] [place] HbA1c (Bld)on 10-05-2024 Average glucose Estimated from glycated hemoglobin (Bld) [Mass/Vol] 163 mg/dL Normal [facility] Comment on above: Order Comment: Speci men Type: BLOOD SPECIMENOrdering Facility: [facility] Address: [address] [place] [address] Result Comment: eAG: (Estimated average glucose) is a calculated value from HgbA1c and is front office representative of the average blood glucose level in the last 2-3 month period. Performed By: #### 5 5454-3 ####[facility] LABIA [id number] [address] STATES OF [facility] HbA1c (Bld) [Mass fraction] 7.3 % High 4.3-5.6 [facility] Comment on above: Order Comment: Speci men Type: BLOOD SPECIMENOrdering Facility: [facility] Address: [address] [place] [address] Result Comment: Amer [place] Diabetes Association guidelines indicate that patients with HgbA1c in the range 5.7-6.4% are at increased risk for development of diabetes, and intervention by lifestyle modification may be beneficial. HgbA1c greater or equal to 6.5% is considered diagnostic of diabetes. Performed By: #### 5 5454-3 ####[facility] LABCLIA [id number] [place] [id number] [place] Lipid 1996 panelon 5 Cholesterol [Mass/Vol] 122 mg/dL Normal <200 [facility] Comment on above: Order Comment: Speci men Type: BLOOD SPECIMENOrdering Facility: [facility] Address: [address] [place] [address] Result Comment: <200 mg/dL, Desirable 200-239 mg/dL, Borderline high >239 mg/dL, High Performed By: #### 2 4331-1, 3024-7, 81846-9, 3051-0 ####[facility] LABCLIA [id number] [address] [place] Cholesterol in HDL [Mass/Vol] 65 mg/dL Normal >39 [facility] Comment on above: Order Comment: Speci men Type: BLOOD SPECIMENOrdering Facility: [facility] Address: [address] [place] [address] Result Comment: 40-5 9 mg/dL, Acceptable >59 mg/dL, High: Negative risk factor for coronary heart disease <40 mg/dL, Low: Positive risk factor for coronary heart disease Performed By: #### 2 4331-1, 3024-7, 89528-6, 3051-0 ####[facility] LABCLIA [id number] [address] Cholesterol in LDL [Mass/Vol] 36 mg/dL Normal <100 [facility] Comment on above: Order Comment: Speci men Type: BLOOD SPECIMENOrdering Facility: [facility] Address: [address] [place] [address] Result Comment: <100 mg/dL, Optimal 100-129 mg/dL, Near optimal/above optimal 130-159 mg/dL, Borderline high 160-189 mg/dL, High >189 mg/dL, Very high Secondary prevention optimal LDL Cholesterol levels are recommended to be < 70 mg/dL Performed By: #### 2 4331-1, 3024-7, 40013-2, 3051-0 ####[facility] LABCLIA [id number] [address] [place] Cholesterol in LDL/Cholesterol in HDL [Mass ratio] 0.55 {ratio} Normal <2.54 [facility] Comment on above: Order Comment: Abimbola diaz Type: BLOOD SPECIMENOrdering Facility: [facility] Address: [address] [place] [address] Result Comment: Kyra glover: 1. National Cholesterol Education Program ATP III Guideline At-A-Glance Quick Desk Reference: National Heart, Lung, and Blood Emily. National Institutes of Health. 2001: NIH Publication No. 01-3305. 2. An International Atherosclerosis Society position paper: global recommendations for the management of dyslipidemia: executive summary, Atherosclerosis. 2014: 232(2):410-413. Performed By: #### 2 4331-1, 302-7, 10119-7, 305-0 ####[facility] LABCLIA [id number] [place] [address] [place] Cholesterol in VLDL [Mass/Vol] 21 mg/dL Normal <30 [facility] Comment on above: Order Comment: Abimbola diaz Type: BLOOD SPECIMENOrdering Facility: [facility] Address: [address] [place] [address] Performed By: #### 2 4331-1, 7, 13027-9, 305-0 ####[facility] LABCLIA [id number] [address] [place] Cholesterol non HDL [Mass/Vol] 57 mg/dL Normal <130 [facility] Comment on above: Order Comment: Abimbola emily Type: BLOOD SPECIMENOrdering Facility: [facility] Address: [address] [place] [address] Result Comment: <130 mg/dL, Optimal 130-159 mg/dL, Near optimal/above optimal 160-189 mg/dL, Borderline high 190-219 mg/dL, High >219 mg/dL, Very high Secondary prevention optimal non HDL Cholesterol levels are recommended to be <100 mg/dL Performed By: #### 2 4331-1, 3023-7, 03799-5, 3051-0 ####[facility] LABCLIA [id number] [address] [address] [place] Cholesterol.total/Mary sterol in HDL [Mass ratio] 1.88 {ratio} Normal <5.10 [facility] Comment on above: Order Comment: Speci men Type: BLOOD SPECIMENOrdering Facility: [facility] Address: [address] [place] [address] Performed By: #### 2 4331-1, 3024-7, 71381-5, 3051-0 ####[facility] LABIA [id number] [address] [address] [place] FASTING TIME [address] [facility] Comment on above: Order Comment: Speci men Type: BLOOD SPECIMENOrdering Facility: [facility] Address: [address] [place] [address] Performed By: #### 2 4331-1, 3024-7, 75241-1, 3051-0 ####[facility] LABIA [id number] [address] [address] [place] Triglyceride [Mass/Vol] 105 mg/dL Normal <150 [facility] Comment on above: Order Comment: Speci men Type: BLOOD SPECIMENOrdering Facility: [facility] Address: [address] [place] [address] Result Comment: <150 mg/dL, Normal 150-199 mg/dL, Borderline high 200-499 mg/dL, High >499 mg/dL, Very high Performed By: #### 2 4331-1, 3024-7, 17868-9, 3051-0 ####[facility] LABIA [id number] [address] [address] [place] T3Free SerPl-mCncon 10-05-19 25 Free T3 [Mass/Vol] 2.5 pg/mL Normal 2.3-4.1 [facility] Comment on above: Order Comment: Speci men Type: BLOOD SPECIMENOrdering Facility: [facility] Address: [address] [place] [address] Performed By: #### 2 4331-1, 3024-7, 86363-6, 3051-0 ####[facility] LABIA [id number] [place] [address] [place] T4 Free SerPl-mCncon 025 Free T4 [Mass/Vol] 0.7 ng/dL Low 0.9-1.7 [facility] Comment on above: Order Comment: Speci men Type: BLOOD SPECIMENOrdering Facility: [facility] Address: [address] [place] [address] Performed By: #### 2 4331-1, 3024-7, 06502-0, 3051-0 ####[facility] LABIA [id number] [place] [address] [place] TSH SerPl-aCncon 10-05-2024 TSH Qn 1.550 m[IU]/L Normal 0.270-4.200 [facility] Comment on above: Order Comment: Speci men Type: BLOOD SPECIMENOrdering Facility: [facility] Address: [address] [place] [address] Performed By: #### 3 016-3 ####[facility] LABIA [id number] [place] [address] [place] CNPMarii [facility]-20[facility] DEONTE BLANCO ([id number]) 1955 F Date Time Provider Department 10/04/24 PREET FARRAR [facility] During your visit today, we recorded the following information about you: Maegan Winters 10/04/2024 7:31 AM Signed Pt came in requesting lab work prior to her 10/07 tex, pt wants routine labs and her thyroid checked Thank you ! Donna Kimble MA 10/04/2024 7:49 AM Signed Please see patient request she had blood work done 05/21 LANDEN Amor Bernadette, PA-C 10/04/2024 9:00 AM Signed Labs [...] [E08.69] Order(s):THYROID STIMULATING HORMONE [SQTSH] Order #: [id number] FUTURE LIPID PANEL BASIC [SQLIPB] Order #: [id number] FUTURE COMPREHENSIVE METABOLIC PANEL [SQCMP] Order #: [id number] FUTURE HEMOGLOBIN A1C [KIBNO8I] Order #: [id number] FUTURE COMPLETE BLOOD COUNT AND DIFFERENTIAL [SQCBCDIF] Order #: [id number] FUTURE T3, FREE [SQFREET3] Order #: [id number] FUTURE T4 FREE/FREE THYROXINE [SQFT4] Order #: [id number] FUTURE Prescriptions as of 10/04/2024 - glimepiride [...] on fasting at 8 am - Insulin [place], Disposable, (BD ULTRA-FINE MARIA T PEN NEEDLE) [...] deficiency [E (more content not included)... Normal [facility] Director Experimental Medicine Office Visit Reporton 09-13-2024 Director Experimental Medicine Office Visit Report Normal [facility] 09-12-2024 [facility] Telephone (FAMPWS) DEONTE BLANCO ([id number]) 1955 F Date Time Provider Department 09/12/24 PREET FARRAR [facility] During your visit today, we recorded the following information about you: Sahara Mejia LPN 09/12/2024 1:20 PM Signed Pt. dropped of glucose numbers for Dr. Farrar to review. Preet Farrar DO 09/13/2024 4:24 PM Signed Noted Preet Farrar DO Allergies As of Date: 09/12/2024 [...] mouth once daily. - blood sugar diagnostic (NutshellMailUCH VERIO TEST STRIPS) test strip Test blood sugar(s) 4 times daily. Dx: Type 2 DM - Uncontrolled E11.65 Insulin: Yes - dexAMETHasone (DECADRON) 1 mg tablet Take the tablet at 11 pm and go for labs the next morning on fasting at 8 am - Insulin [place], Disposable, (BD ULTRA-FINE MARIA T PEN NEEDLE) [...] by SAHARA MEJIA LPN on 10/04/[address] [facility] Carotid Duplex Ultrasoundon 09-06-2024 Carotid Duplex Ultrasound Normal [facility] Renal Artery Duplex Ultrasou ndon 09-06-2024 Renal Artery Duplex Ultrasound Normal [facility] 12 Lead EKG performed by BMS on 08-17-2024 12 Lead EKG performed by BMS Normal [facility] Cardiology Visit Reporton Cardiology Visit Report Normal [facility] CNOVon 08-11-2024 CNOV Office Visit (ENWSTR ) DEONTE BLANCO ([id number]) 1955 F Date Time Provider Department 08/11/24 9:40 AM BEAN ISAAC ENWSTR During your visit today, we recorded the following information about you: Temperature Pulse Blood pressure Weight 98.2 degrees 69/minute 150/67 82.6 kg Bean Isaac MD 08/11/2024 6:10 PM Signed [facility] Follow up note Referred by: PCP- Preet Farrar DO History of Present illness: Deonte G Francis is a 68 year old [...] pill . Lifestyle -Exercise: 30 mins on tread [...] D de (more content not included)... Normal [facility] Director Experimental Medicine Office Visit Reporton 08-10-2024 Director Experimental Medicine Office Visit Report Normal [facility] Bedside Glucoseon 07-26-2024 FINGERSTICK GLU 171 mg/dL High 74-106 [facility] Comment on above: Result Comment: CARIN DYER OF PATIENT CARE PER NURSING PROTOCOL Performed By: #### L 501.080 ####[facility] [id number] [place], [address] Discharge Instructionon 06-29 Discharge Instruction Normal [facility] MR/POSTOP.ANEon 07-26-2024 MR/POSTOP.ANE Normal [facility] MR/YABXEZOV3mx 07-26-2024 MR/POSTOPAN2 Normal [facility] Operative Reporton Operative Report Normal [facility] Surgery Specimen Level Adonis 07-26-2024 Surgery Specimen Level IV Normal [facility] Comment on above: Performed By: #### P SUIV ####[facility] [address] [place], [address] 12 Lead EKGon 07-21-2024 12 Lead EKG Normal [facility] Comprehensive Metabolic Prof ilon 07-21-2024 Albumin [Mass/Vol] 3.5 g/dL Normal 3.2-5.0 [facility] Comment on above: Performed By: #### L 501.9520, L501.9985, L500.4050, BTSPAT ####[facility] [address] [place], [address] Albumin/Globulin [Mass ratio] 1.0 {ratio} Normal 0.9-2.4 [facility] Comment on above: Performed By: #### L 501.9520, L501.9985, L500.4050, BTSPAT ####[facility] [address] [place], [address] ALK P 88 U/L Normal 45-117 [facility] Comment on above: Performed By: #### L 501.9520, L501.9985, L500.4050, BTSPAT ####[facility] [address] [place], [address] ALT [Catalytic activity/Vol] 18 U/L Normal 13-56 [facility] Comment on above: Performed By: #### L 501.9520, L501.9985, L500.4050, BTSPAT ####[facility] [address] [place], [address] AST [Catalytic activity/Vol] 13 U/L Low 15-37 [facility] Comment on above: Performed By: #### L 501.9520, L501.9985, L500.4050, BTSPAT ####[facility] [address] [place], [address] Bilirubin [Mass/Vol] 0.60 mg/dL Normal 0.20-1.00 [facility] Comment on above: Result Comment: For patients on eltrombopag therapy, use of Dimension [place] TBIL is not recommended. Performed By: #### L 501.9520, L501.9985, L500.4050, BTSPAT ####[facility] [address] [place], [address] BUN/CRE 26.9 RATIO High 10-20 [facility] Comment on above: Performed By: #### L 501.9520, L501.9985, L500.4050, BTSPAT ####[facility] [address] [place], [address] CA,Total 9.5 mg/dL Normal 8.5-10.1 [facility] Comment on above: Performed By: #### L 501.9520, L501.9985, L500.4050, BTSPAT ####[facility] [address] [place], [address] Chloride [Moles/Vol] 106 mmol/L Normal 98-107 [facility] Comment on above: Performed By: #### L 501.9520, L501.9985, L500.4050, BTSPAT ####[facility] [address] [place], [address] CO2 [Moles/Vol] 25.0 mmol/L Normal 21.0-32.0 [facility] Comment on above: Performed By: #### L 501.9520, L501.9985, L500.4050, BTSPAT ####[facility] [address] [place], [address] Creatinine [Mass/Vol] 0.71 mg/dL Normal 0.55-1.02 [facility] Comment on above: Result Comment: The validity of the calculated GFR GFRAA in patients over70 years has not been determined. Clinical correlation isessential. Performed By: #### L 501.9520, L501.9985, L500.4050, BTSPAT ####[facility] [address] [place], [address] EST GFR - AA 106 mL/min Normal >60 [facility] Comment on above: Result Comment: Afri can Pakistani GFR Calc Performed By: #### L 501.9520, L501.9985, L500.4050, BTSPAT ####[facility] [address] [place], [address] GAP 5 Normal 5-15 [facility] Comment on above: Performed By: #### L 501.9520, L501.9985, L500.4050, BTSPAT ####[facility] [address] [place], [address] GFR/1.73 sq M.predicted among non-blacks MDRD (S/P/Bld) [Vol rate/Area] 87 mL/min/{1.73_m2} Normal >60 [facility] Comment on above: Result Comment: Non- GFR Calc Performed By: #### L 501.9520, L501.9985, L500.4050, BTSPAT ####[facility] [address] [place], [address] Globulin (S) [Mass/Vol] 3.6 g/dL Normal 2.2-4.[address] [facility] Comment on above: Performed By: #### L 501.9520, L501.9985, L500.4050, BTSPAT ####[facility] [address] [place], [address] Glucose [Mass/Vol] 191 mg/dL High 74-106 [facility] Comment on above: Result Comment: Fast ing Glucose result greater than or equal to 126 mg/dLsuggests DIABETES MELLITUS per A.D.A. criteria. Performed By: #### L 501.9520, L501.9985, L500.4050, BTSPAT ####[facility] [address] [place], [address] Potassium [Moles/Vol] 4.0 mmol/L Normal 3.5-5.1 [facility] Comment on above: Performed By: #### L 501.9520, L501.9985, L500.4050, BTSPAT ####[facility] [address] [place], [address] Sodium [Moles/Vol] 136 mmol/L Normal 136-145 [facility] Comment on above: Performed By: #### L 501.9520, L501.9985, L500.4050, BTSPAT ####[facility] [address] [place], [address] T PROT 7.1 g/dL Normal 6.4-8.2 [facility] Comment on above: Performed By: #### L 501.9520, L501.9985, L500.4050, BTSPAT ####[facility] [address] [place], [address] Urea nitrogen [Mass/Vol] 19 mg/dL High 7-18 [facility] Comment on above: Performed By: #### L 501.9520, L501.9985, L500.4050, BTSPAT ####[facility] [address] [place], [place], [address] Hemoglobin A1con 07-21-2024 HbA1c (Bld) [Mass fraction] 7.2 % High 3.8-5.6 [facility] Comment on above: Result Comment: Norm al < 5.7 % Prediabetic 5.7 - 6.4 % Diabetic >or= 6.5 % Please note range changes. Performed By: #### L 501.9520, L501.9985, L500.4050, BTSPAT ####[facility] [address] [place], [place], [address] Thyroid Stim Hormone (TSH)on 07-21-2024 TSH 0.143 uIU/mL Low 0.358-3.740 [facility] Comment on above: Performed By: #### L 501.9520, L501.9985, L500.4050, BTSPAT ####[facility] [address] [place], [place], [address] Type AND Screen - PAT ONLYon 07-21-2024 ABO and Rh group Nom (Bld) Blood group A Rh(D) positive Normal [facility] Comment on above: Order Comment: Reaso n for Laboratory Test [id number] D C Performed By: #### L 501.9520, L501.9985, L500.4050, BTSPAT ####[facility] [address] [place], [place], [address] CNPNon 07-20-2024 CNPN Telephone ([facility]) FRANCISDEONTE Walker ([id number]) 1955 F Date Time Provider Department 07/20/24 PREET FARRARPWS During your visit today, we recorded the [...] tablet by mouth once daily. - Insulin [place], Disposable, (BD ULTRA-FINE MARIA T PEN NEEDLE) [...] Encounter Status:Closed by LISA APARICIO on 07/21/24 [facility] DEONTE BLANCO ([id number]) 1955 F Date Time Provider Department 07/19/24 [facility] During your visit today, we recorded the following information about you: Annmarie Canada, OLVIN 07/19/2024 11:34 AM Signed Lali with [facility] called in and reports she had faxed over the surgical clearance form on 07/15/24. I let them know it wasn't charted that they had received it, so she is going to send it again. Pt is going to have a DNC on 07/26/24, please fill out and fax back. Faxed recent thyroid labs and labs from April to [phone]. Let them know the other recent labs were external, and they would have to get them from [facility]. Sahara Mejia LPN 07/19/2024 4:31 PM Signed Form on Dr. Farrar's desk Chelo Prasad RN 07/25/2024 10:49 AM Signed Lali at [facility] called again regarding this pt. Pt is to have procedure tomorrow and they are asking if Dr. Farrar's office received surgical clearance forms last week-they are in need of them being completed. Asking if someone can call them today with an update on the forms. Call Lali at [phone]. OLVIN Mujica Susan LPN 07/25/2024 10:55 AM [...] tablet by mouth once daily. - Insulin [place], Disposable, (BD ULTRA-FINE MARIA T PEN NEEDLE) [...] Diabetes mellit (more content not included)... Normal [facility] Director Experimental Medicine Office Visit Reporton 07-19-2024 Director Experimental Medicine Office Visit Report Normal [facility] 07-15-2024 CNPN Telephone ([facility]) DEONTE BLANCO ([id number]) 1955 F Date Time Provider Department 07/15/24 [facility] During your visit today, we recorded the [...] Patient is having DNC done on 07/26/2024. [facility] had faxed over surgical clearance form [...] tablet by mouth once daily. - Insulin [place], Disposable, (BD ULTRA-FINE MARIA T PEN NEEDLE) [...] [E55.9] 09/10 (more content not included)... Normal [facility] T3Free SerPl-mCncon 07-15-20 24 Free T3 [Mass/Vol] 5.0 pg/mL High 2.3-4.1 [facility] Comment on above: Order Comment: Speci men Type: BLOOD SPECIMENOrdering Facility: [facility] Address: [address] [place] [address] Performed By: #### 3 051-0, 3024-7, 3016-3 ####[facility] [id number] [place] [address] [place] T4 Free SerPl-mCncon 024 Free T4 [Mass/Vol] 0.9 ng/dL Normal 0.9-1.7 [facility] Comment on above: Order Comment: Speci men Type: BLOOD SPECIMENOrdering Facility: [facility] Address: [address] [place] [address] Performed By: #### 3 051-0, 3024-7, 3016-3 ####[facility] [id number] [place] [address] [place] TSH SerPl-aCncon 07-15-2024 TSH Qn 0.218 m[IU]/L Low 0.270-4.200 [facility] Comment on above: Order Comment: Speci men Type: BLOOD SPECIMENOrdering Facility: [facility] Address: [address] [place] [address] Performed By: #### 3 051-0, 3024-7, 3016-3 ####[facility] LABCLIA [id number] [facility]IDGEFranca [id number] [id number] [place] Director Experimental Medicine Office Visit Reporton 07-07-2024 Director Experimental Medicine Office Visit Report Normal [facility] CNOVon 06-14-2024 CNOV Office Visit ([facility]AMP[facility] ) DEONTE BLANCO ([id number]) 1955 F Date Time Provider Department 06/14/24 2:20 PM [facility] During your visit today, we recorded the following information about you: Temperature Pulse Respiration Blood pressure 98 degrees 76/minute 16/minute 136/70 Weight 78 kg Preet Farrar, DO 06/14/2024 4:37 PM Signed Patient presents with: F/U 3 Month HPI: Deonte Blanco is a 68 year old female [...] thickened endometrial lining. Has been seen by [facility] and had EMB and will be having a consult with Dr. Froylan Farnsworth [facility] [employer] on 07/07 to potentially schedule MEREDITH. She [...] time. She does not check BP's generally. Deonte gets sporadic irregular exercise. PAST MEDICAL HISTORY [...] 1 tablet by mouth once daily. Insulin Su[place]na, Disposable, (PEN NEEDLE) 29 ga (more content not included)... Normal [facility] Calprotectin, Stoolon [address] 186 ug/g Abnormal 0-120 [facility] Comment on above: Result Comment: Conc entration Interpretation Follow-Up< 5 - 50 ug/g Normal None>50 -120 ug/g Borderline Re-evaluate in 4-6 weeks >120 ug/g Abnormal Repeat as clinically indicatedPerformed at: - [facility] [address] [id number] Director: Chung Campbell MD, Phone: [phone] Performed By: #### M 100.4875, L7000.0750, L7000.0700 ####[facility] [address] [place], [place], [address] L7000.0750on 06-13-2024 P ELASTASE,FECA 534 Normal >200 [facility] Comment on above: Result Comment: Resu lt Units: ug Elast./g Severe Pancreatic Insufficiency: <100 Moderate Pancreatic Insufficiency: 100 - 200 Normal: >200Performed at: [facility] [place], [place] [id number] Director: Chung Campbell MD, Phone: [phone] Performed By: #### M 100.0605, L7000.0750, L7000.0700 ####[facility] [address] [place], [address] L2100.0000on 06-09-2024 ACCA 16 units Normal 0-90 [facility] Comment on above: Result Comment: Nega tive: <80 Equivocal: 80-90 Positive: >90 Performed By: #### L 100.0100, L2100.0000 ####[facility] [address] [place], [address] ALCA 0 units Normal 0-60 [facility] Comment on above: Result Comment: Nega tive:<55 Equivocal: 55-60 Positive: >60 Performed By: #### L 100.0100, L2100.0000 ####[facility] [address] [place], [address] AMCA 9 units Normal 0-100 [facility] Comment on above: Result Comment: Nega tive: <90 Equivocal: 90-100 Positive: >100 This test was developed and its performance characteristics determined by [facility]. It has not been cleared or approved by the Food and Drug Administration. The FDA has determined that such clearance or approval is not necessary. Performed By: #### L 100.0100, L2100.0000 ####[facility] [address] [place], [address] Atypical pANCA Negative Normal Negative [facility] Comment on above: Performed By: #### L 100.0100, L2100.0000 ####[facility] [address] [place], [address] COMMENT Comment Normal . [facility] Comment on above: Result Comment: Alaina guillaume is not suggestive of Inflammatory Bowel DiseasePerformed at: [facility] LabcoThomas [facility] [address] [place], [place] [id number] Director: Chung Campbell MD, Phone: [phone] Performed By: #### L 100.0100, L2100.0000 ####[facility] [address] [place], [address] Yesi 3 units Normal 0-50 [facility] Comment on above: Result Comment: Nega tive: <45 Equivocal: 45-50 Positive: >50 Performed By: #### L 100.0100, L2100.0000 ####[facility] [address] [place], [address] Stool Lactoferrin/WBCon 05-29 WBCST Normal Reference Range = Negative Fecal WBC Lactoferrin A Positive: Fecal WBC Lactoferrin present A Normal [facility] Comment on above: Performed By: #### M 100.0605, L7000.0750, L7000.0700 ####[facility] [address] [place], [address] Director Experimental Medicine Office Visit Reporton 06-08-2024 Director Experimental Medicine Office Visit Report Normal [facility] PAP IG HPV APTIMA 16/18,45on 06-08-2024 ADEQ Comment Normal . [facility] Comment on above: Order Comment: Speci men Comment: [id number] Comment: Source.............Cervix;EndocervixSpecimen Comment: No. of containers..01 ThinPrep Vial Result Comment: Sati sfactory for evaluation. Endocervical and/or squamous metaplasticcells (endocervical component) are present. Performed By: #### L 7000.1800, L7400.0280, M100.2000, M100.3200 ####[facility] [address] [place], [address] COMM . Normal . [facility] Comment on above: Order Comment: Speci men Comment: [id number] Comment: Source.............Cervix;EndocervixSpecimen Comment: No. of containers..01 ThinPrep Vial Performed By: #### L 7000.1800, L7400.0280, M100.1999, M100.3200 ####[facility] [address] [place], [address] COMMENT Comment Normal . [facility] Comment on above: Order Comment: Speci men Comment: [id number] Comment: Source.............Cervix;EndocervixSpecimen Comment: No. of containers..01 ThinPrep Vial Result Comment: This liquid based ThinPrep(R) pap test was screened withthe use of an image guided system. Performed By: #### L 7000.1800, L7400.0280, M100.1999, M100.3200 ####[facility] [address] [place], [address] DIAG Comment Normal . [facility] Comment on above: Order Comment: Speci men Comment: [id number] Comment: Source.............Cervix;EndocervixSpecimen Comment: No. of containers..01 ThinPrep Vial Result Comment: NEGA TIVE FOR INTRAEPITHELIAL LESION OR MALIGNANCY. Performed By: #### L 7000.1800, L7400.0280, M100.2000, M100.3200 ####[facility] [address] [place], [address] HPV APTIMA, HR Positive Abnormal Negative [facility] Comment on above: Order Comment: Speci men Comment: [id number] Comment: Source.............Cervix;EndocervixSpecimen Comment: No. of containers..01 ThinPrep Vial Result Comment: This nucleic acid amplification test detects fourteen high-risk HPV types (16,18,31,33,35,39,45,51,52,56,58,59,66,68)without differentiation. Performed By: #### L 7000.1800, L7400.0280, M100.1999, M100.3200 ####[facility] [address] [place], [address] HPV Celine 18,45 Negative Normal Negative [facility] Comment on above: Order Comment: Speci men Comment: [id number] Comment: Source.............Cervix;EndocervixSpecimen Comment: No. of containers..01 ThinPrep Vial Result Comment: Perf ormed at: - [facility] [address] [id number] Director: Alma Delia العراقي MD, Phone: [phone] at: =G - [facility] [address] [id number] Director: Alma Delia العراقي MD, Phone: [phone] Performed By: #### L 7000.1800, L7400.0280, .1999, M100.3200 ####[facility] [address] [place], [address] HPV Celine Rfx Comment Normal . [facility] Comment on above: Order Comment: Speci men Comment: [id number] Comment: Source.............Cervix;EndocervixSpecimen Comment: No. of containers..01 ThinPrep Vial Result Comment: Emily romero, see HPV Genotype results. Performed By: #### L 7000.1800, L7400.0280, M100.2000, M100.3200 ####[facility] [address] [place], [address] HPV Genotype 16 Negative Normal Negative [facility] Comment on above: Order Comment: Speci men Comment: [id number] Comment: Source.............Cervix;EndocervixSpecimen Comment: No. of containers..01 ThinPrep Vial Performed By: #### L 7000.1800, L7400.0280, M100.1999, M100.3200 ####[facility] [address] [place], [place], [address] PAPSMR Comment Normal . [facility] Comment on above: Order Comment: Speci men Comment: [id number] Comment: Source.............Cervix;EndocervixSpecimen Comment: No. of containers..01 ThinPrep Vial Result Comment: The Pap smear is a screening test designed to aid in thedetection of premalignant and malignant conditions of theuterine cervix. It is not a diagnostic procedure andshould not be used as the sole means of detecting cervicalcancer. Both false-positive and false-negative reports dooccur. Performed By: #### L 7000.1800, L7400.0280, , M100.3200 ####[facility] [address] [place], [address] PERFORM Comment Normal . [facility] Comment on above: Order Comment: Speci men Comment: [id number] Comment: Source.............Cervix;EndocervixSpecimen Comment: No. of containers..01 ThinPrep Vial Result Comment: Rainer Gibson Vocational Coordinator (ASCP) Performed By: #### L 7000.1800, L7400.0280, .1999, M100.3200 ####[facility] [address] [place], [place], [address] Surgery Specimen Level Adonis 06-08-2024 Surgery Specimen Level IV Normal [facility] Comment on above: Performed By: #### P SUIV ####[facility] [address] [place], [address] Chlamydia/GC NELL aptimaon CHLAMY,NUC ACID Negative Normal Negative [facility] Comment on above: Performed By: #### L 7000.1800, L7400.0280, M100.2000, M100.3200 ####[facility] [address] [place], [address] GC BY NUC ACID Negative Normal Negative [facility] Comment on above: Result Comment: Perf ormed at: =G - [facility] [address] [id number] Director: Alma Delia العراقي MD, Phone: [phone] Performed By: #### L 7000.1800, L7400.0280, .1999, M100.3200 ####[facility] [address] [place], [address] CBC W/Diff, Automatedon 09 Absolute Lymph 1.91 X10 3/uL Normal 0.83-4.51 [facility] Comment on above: Performed By: #### L 100.0100, L2100.0000 ####[facility] [address] [place], [address] Absolute Neut 6.9 X10 3/uL Normal 2.0-7.7 [facility] Comment on above: Performed By: #### L 100.0100, L2100.0000 ####[facility] [address] [place], [address] Basophils/100 WBC (Bld) 0.5 % Normal 0-1 [facility] Comment on above: Performed By: #### L 100.0100, L2100.0000 ####[facility] [address] [place], [address] Eosinophils/100 WBC (Bld) 1.9 % Normal 0-5 [facility] Comment on above: Performed By: #### L 100.0100, L2100.0000 ####[facility] [address] [place], [address] Erythrocyte distribution width (RBC) [Ratio] 12.9 % Normal 11.6-14.6 [facility] Comment on above: Performed By: #### L 100.0100, L2100.0000 ####[facility] [address] [place], [address] Hematocrit (Bld) [Volume fraction] 41.0 % Normal 37-47 [facility] Comment on above: Performed By: #### L 100.0100, L2100.0000 ####[facility] [address] [place], [address] Hemoglobin (Bld) [Mass/Vol] 13.3 g/dL Normal 12.0-15.0 [facility] Comment on above: Performed By: #### L 100.0100, L2100.0000 ####[facility] [address] [place], [address] IG% 0.400 Normal 0.0-0.9 [facility] Comment on above: Result Comment: IG% - Immature Granulocytes (promyelocytes, myelocytes andmetamyelocytes) > 1% indicates that a LEFT SHIFT is Present. Performed By: #### L 100.0100, L2100.0000 ####[facility] [address] [place], [address] Lymphocytes/100 WBC (Bld) 19.3 % Normal 19-41 [facility] Comment on above: Performed By: #### L 100.0100, L2100.0000 ####[facility] [address] [place], [address] MCH (RBC) [Entitic mass] 30.4 pg Normal 27.0-32.0 [facility] Comment on above: Performed By: #### L 100.0100, L2100.0000 ####[facility] [address] [place], [address] MCHC (RBC) [Mass/Vol] 32.4 g/dL Normal 32-36 [facility] Comment on above: Performed By: #### L 100.0100, L2100.0000 ####[facility] [address] [place], [address] MCV (RBC) [Entitic vol] 93.6 fL Normal 81-99 [facility] Comment on above: Performed By: #### L 100.0100, L2100.0000 ####[facility] [address] [place], [address] Monocytes/100 WBC (Bld) 7.8 % Normal 0-[address] [facility] Comment on above: Performed By: #### L 100.0100, L2100.0000 ####[facility] [address] [place], [address] Neutrophils/100 WBC (Bld) 70.1 % High 47-70 [facility] Comment on above: Performed By: #### L 100.0100, L2100.0000 ####[facility] [address] [place], [address] Nucleated RBC (Bld) [#/Vol] 0 10*3/uL Normal 0-5 [facility] Comment on above: Performed By: #### L 100.0100, L2100.0000 ####[facility] [address] [place], [address] Platelet mean volume (Bld) [Entitic vol] 9.7 fL Normal 6.2-12.0 [facility] Comment on above: Performed By: #### L 100.0100, L2100.0000 ####[facility] [address] [place], [address] Platelets (Bld) [#/Vol] 334 10*3/uL Normal 150-450 [facility] Comment on above: Performed By: #### L 100.0100, L2100.0000 ####[facility] [address] [place], [address] RBC (Bld) [#/Vol] 4.38 10*6/uL Normal 4.2-5.4 [facility] Comment on above: Performed By: #### L 100.0100, L2100.0000 ####[facility] [address] [place], [address] RDW SD 44.5 fl High 35.1-43.9 [facility] Comment on above: Performed By: #### L 100.0100, L2100.0000 ####[facility] [address] [place], [address] WBC (Bld) [#/Vol] 9.9 10*3/uL Normal 4.4-11.0 [facility] Comment on above: Performed By: #### L 100.0100, L2100.0000 ####[facility] [address] [place], [address] Gastroenterology Visit Repor ton 06-06-2024 Gastroenterology Visit Report Normal [facility] Pelvic w/ Transvaginalon Pelvic w/ Transvaginal Normal [facility] Genital Culture Comprehensiv kyler 06-03-2024 VAC Reason for Exam: vaginal discharge Normal vaginal jostin isolated. No yeast, Gardnerella, Neisseria or beta-hemolytic Streptococcus isolated. Normal [facility] Comment on above: Performed By: #### L 7000.1800, L7400.0280, M100.2000, M100.3200 ####[facility] [address] [place], [address] Gram Stainon 06-03-2024 GS Reason for Exam: vaginal discharge Gram Stain 4+ Gram positive rods Rare Gram positive cocci No Gram negative diplococci Rare White Blood Cells Normal [facility] Comment on above: Performed By: #### L 7000.1800, L7400.0280, M100.2000, M100.3200 ####[facility] [address] [place], [address] Director Experimental Medicine Office Visit Reporton 06-02-2024 Director Experimental Medicine Office Visit Report Normal [facility] CNOVon 05-25-2024 CNOV Office Visit (FAMPWS ) DEONTE BLANCO ([id number]) 1955 F Date Time Provider Department 05/25/24 2:40 PM CATALINA YOUNG During your visit today, we recorded the following information about you: Pulse Respiration Blood pressure Weight 80/minute 18/minute 106/72 76.4 kg Catalina Young APRN.CNP 05/25/2024 3:19 PM Signed 05/25/2024 Patient presents with: ER F/U: 05/22/2024 [facility] for left lower quadrant pain SUBJECTIVE: This is a 68 year old that is here today for Above Complaints. HOSPITAL/ER FOLLOW UP: Reason for visit: abdominal pain Which facility: [facility] Date of visit: 05/22/2024 Diagnosis: [...] 1 tablet by mouth once daily. Insulin [place], Disposable, (PEN NEEDLE) 29 gauge x 1/2 [...] once daily. flash glucose scanning reader (FREESTYLE ATRA 2 READER) 1 Device as directed. Type [...] Screening Never (more content not included)... Normal [facility] Abdomen/Pelvis W IV Cont ONL Yon 05-22-2024 Abdomen/Pelvis W IV Cont ONLY Normal [facility] Basic Metabolic Profile (BMP )on 05-22-2024 BUN/CRE 29.0 RATIO High 10- [facility] Comment on above: Performed By: #### L 500.2500, L100.0100 ####[facility] [address] [place], [address] CA,Total 9.6 mg/dL Normal 8.5-10.1 [facility] Comment on above: Performed By: #### L 500.2500, L100.0100 ####[facility] [address] [place], [address] Chloride [Moles/Vol] 95 mmol/L Low 98-107 [facility] Comment on above: Performed By: #### L 500.2500, L100.0100 ####[facility] [address] [place], [address] CO2 [Moles/Vol] 26.0 mmol/L Normal 21.0-32.0 [facility] Comment on above: Performed By: #### L 500.2500, L100.0100 ####[facility] [address] [place], [address] Creatinine [Mass/Vol] 0.66 mg/dL Normal 0.55-1.02 [facility] Comment on above: Result Comment: The validity of the calculated GFR GFRAA in patients over70 years has not been determined. Clinical correlation isessential. Performed By: #### L 500.2500, L100.0100 ####[facility] [address] [place], [address] ECRCL 60.85 ml/min Normal [facility] Comment on above: Performed By: #### L 500.2500, L100.0100 ####[facility] [address] [place], [address] EST GFR - AA 115 mL/min Normal >60 [facility] Comment on above: Result Comment: Afri can Pakistani GFR Calc Performed By: #### L 500.2500, L100.0100 ####[facility] [address] [place], [address] GAP 9 Normal 5-15 [facility] Comment on above: Performed By: #### L 500.2500, L100.0100 ####[facility] [address] [place], [address] GFR/1.73 sq M.predicted among non-blacks MDRD (S/P/Bld) [Vol rate/Area] 95 mL/min/{1.73_m2} Normal >60 [facility] Comment on above: Result Comment: Non- GFR Calc Performed By: #### L 500.2500, L100.0100 ####[facility] [address] [place], [address] Glucose [Mass/Vol] 232 mg/dL High 74-106 [facility] Comment on above: Result Comment: Gluc ose result greater than or equal to 200 mg/dLsuggests DIABETES MELLITUS per A.D.A. criteria. Performed By: #### L 500.2500, L100.0100 ####[facility] [address] [place], [address] Potassium [Moles/Vol] 4.3 mmol/L Normal 3.5-5.1 [facility] Comment on above: Result Comment: Mode rate Hemolysis, Result may be falsely increased. Performed By: #### L 500.2500, L100.0100 ####[facility] [address] [place], [address] Sodium [Moles/Vol] 130 mmol/L Low 136-145 [facility] Comment on above: Performed By: #### L 500.2500, L100.0100 ####[facility] [address] [place], [address] Urea nitrogen [Mass/Vol] 19 mg/dL High 7-18 [facility] Comment on above: Performed By: #### L 500.2500, L100.0100 ####[facility] [address] [place], [address] CBC W/Diff, Automatedon 04-29 Absolute Lymph 1.86 X10 3/uL Normal 0.83-4.51 [facility] Comment on above: Performed By: #### L 500.2500, L100.0100 ####[facility] [address] [place], [address] Absolute Neut 12.0 X10 3/uL High 2.0-7.7 [facility] Comment on above: Performed By: #### L 500.2500, L100.0100 ####[facility] [address] [place], [address] Basophils/100 WBC (Bld) 0.2 % Normal 0-1 [facility] Comment on above: Performed By: #### L 500.2500, L100.0100 ####[facility] [address] [place], [address] Eosinophils/100 WBC (Bld) 0.5 % Normal 0-5 [facility] Comment on above: Performed By: #### L 500.2500, L100.0100 ####[facility] [address] [place], [address] Erythrocyte distribution width (RBC) [Ratio] 12.6 % Normal 11.6-14.6 [facility] Comment on above: Performed By: #### L 500.2500, L100.0100 ####[facility] [address] [place], [address] Hematocrit (Bld) [Volume fraction] 40.6 % Normal 37-47 [facility] Comment on above: Performed By: #### L 500.2500, L100.0100 ####[facility] [address] [place], [address] Hemoglobin (Bld) [Mass/Vol] 13.8 g/dL Normal 12.0-15.0 [facility] Comment on above: Performed By: #### L 500.2500, L100.0100 ####[facility] [address] [place], [address] IG% 0.500 Normal 0.0-0.9 [facility] Comment on above: Result Comment: IG% - Immature Granulocytes (promyelocytes, myelocytes andmetamyelocytes) > 1% indicates that a LEFT SHIFT is Present. Performed By: #### L 500.2500, L100.0100 ####[facility] [address] [place], [address] Lymphocytes/100 WBC (Bld) 12.6 % Low 19-41 [facility] Comment on above: Performed By: #### L 500.2500, L100.0100 ####[facility] [address] [place], [address] MCH (RBC) [Entitic mass] 30.4 pg Normal 27.0-32.0 [facility] Comment on above: Performed By: #### L 500.2500, L100.0100 ####[facility] [address] [place], [address] MCHC (RBC) [Mass/Vol] 34.0 g/dL Normal 32-36 [facility] Comment on above: Performed By: #### L 500.2500, L100.0100 ####[facility] [address] [place], [address] MCV (RBC) [Entitic vol] 89.4 fL Normal 81-99 [facility] Comment on above: Performed By: #### L 500.2500, L100.0100 ####[facility] [address] [place], [address] Monocytes/100 WBC (Bld) 5.1 % Normal 0-10 [facility] Comment on above: Performed By: #### L 500.2500, L100.0100 ####[facility] [address] [place], [address] Neutrophils/100 WBC (Bld) 81.1 % High 47-70 [facility] Comment on above: Performed By: #### L 500.2500, L100.0100 ####[facility] [address] [place], [address] Nucleated RBC (Bld) [#/Vol] 0 10*3/uL Normal 0-5 [facility] Comment on above: Performed By: #### L 500.2500, L100.0100 ####[facility] [address] [place], [address] Platelet mean volume (Bld) [Entitic vol] 9.5 fL Normal 6.2-12.0 [facility] Comment on above: Performed By: #### L 500.2500, L100.0100 ####[facility] [address] [place], [address] Platelets (Bld) [#/Vol] 326 10*3/uL Normal 150-450 [facility] Comment on above: Performed By: #### L 500.2500, L100.0100 ####[facility] [address] [place], [address] RBC (Bld) [#/Vol] 4.54 10*6/uL Normal 4.2-5.4 [facility] Comment on above: Performed By: #### L 500.2500, L100.0100 ####[facility] [address] [place], [address] RDW SD 41.5 fl Normal 35.1-43.9 [facility] Comment on above: Performed By: #### L 500.2500, L100.0100 ####[facility] [address] [place], [address] WBC (Bld) [#/Vol] 14.8 10*3/uL High 4.4-11.0 [facility] Comment on above: Performed By: #### L 500.2500, L100.0100 ####[facility] [address] [place], [address] Emergency Department Summary on 05-22-2024 Emergency Department Summary Normal [facility] Urinalysis, Completeon 05-22 RBC 0-5 SEEN Normal 0-5 [facility] Comment on above: Order Comment: CLEAN CATCH Performed By: #### L 400.0001 ####[facility] [address] [place], [address] BACTERIA 0 SEEN Normal None Seen [facility] Comment on above: Order Comment: CLEAN CATCH Performed By: #### L 400.0001 ####[facility] [address] [place], [address] EPI,SQUAMOUS 0 SEEN Normal 5-10 [facility] Comment on above: Order Comment: CLEAN CATCH Performed By: #### L 400.0001 ####[facility] [address] [place], [address] Mucus Ql (Urine sed) 0 SEEN Normal [facility] Comment on above: Order Comment: CLEAN CATCH Performed By: #### L 400.0001 ####[facility] [address] [place], [address] WBC 0 SEEN Normal 0-5 [facility] Comment on above: Order Comment: CLEAN CATCH Performed By: #### L 400.0001 ####[facility] [address] [place], [address] Comprehensive metabolic 2000 panelon 03-22-2024 Albumin [Mass/Vol] 4.3 g/dL 3.9 - 4.9 g/dL [facility] ALP [Catalytic activity/Vol] 99 U/L 34 - 123 U/L [facility] ALT [Catalytic activity/Vol] 16 U/L 7 - 38 U/L [facility] Anion gap [Moles/Vol] 16 mmol/L High 8 - 15 mmol/L [facility] AST [Catalytic activity/Vol] 27 U/L 13 - 35 U/L [facility] Bilirubin [Mass/Vol] 0.4 mg/dL 0.2 - 1 .3 mg/dL [facility] Calcium [Mass/Vol] 10.4 mg/dL High 8.5 - 10. 2 mg/dL [facility] Chloride [Moles/Vol] 98 mmol/L 98 - 10 7 mmol/L [facility] CO2 [Moles/Vol] 21 mmol/L Low 22 - 30 mmol/L [facility] Creatinine [Mass/Vol] 0.67 mg/dL 0.58 - 0.96 mg/dL [facility] GFR/1.73 sq M.predicted among non-blacks MDRD (S/P/Bld) [Vol rate/Area] 95 mL/min/{1.73_m2} - PINF [facility] Comment on above: Estimated Glomerular Filtration Rate [...] 192 mg/dL High 74 - 99 mg/dL [facility] Comment on above: The [place] Diabete s Association (ADA) provides guidance for [...] Standards of Medical Care in Diabetes 2016, [place] [employer] Association. Diabetes Care. 2016.39(Suppl 1). Interpretation and review of laboratory results Abnormal [facility] Potassium [Moles/Vol] 4.9 mmol/L 3.7 - 5.1 mmol/L [facility] Protein [Mass/Vol] 7.4 g/dL 6.3 - 8.0 g/dL [facility] Sodium [Moles/Vol] 135 mmol/L Low 136 - 144 mmol/L [facility] Urea nitrogen [Mass/Vol] 17 mg/dL 7 - 21 mg/dL [facility] Free T4 [Mass/Vol]on 024 Interpretation and review of laboratory results Abnormal [facility] No Panel Informationon 03-22 [facility] T4 FREE/FREE THYROXINEon Free T4 [Mass/Vol] 0.7 ng/dL Low 0.9 - 1.7 ng/dL [facility] THYROID STIMULATING HORMONEo n 03-22-2024 TSH Qn 1.890 m[IU]/L [facility] TSH Qnon 03-22-2024 Interpretation and review of laboratory results Normal [facility] CBC W Auto Differential pane l (Bld)on 03-21-2024 Basophils (Bld) [#/Vol] 0.04 10*3/uL [facility] Basophils/100 WBC (Bld) 0.5 % [facility] Differential cell count method Nom (Bld) Auto [facility] Eosinophils (Bld) [#/Vol] 0.18 10*3/uL [facility] Eosinophils/100 WBC (Bld) 2.0 % [facility] Erythrocyte distribution width (RBC) [Ratio] 13.8 % 11.5 - 15.0 % [facility] Hematocrit (Bld) [Volume fraction] 40.9 % 36.0 - 46.0 % [facility] Hemoglobin (Bld) [Mass/Vol] 13.3 g/dL 11.5 - 15.5 g/dL [facility] Immature granulocytes (Bld) [#/Vol] 0.05 10*3/uL [facility] Immature granulocytes/100 WBC (Bld) 0.6 % [facility] Lymphocytes (Bld) [#/Vol] 2.12 10*3/uL [facility] Lymphocytes/100 WBC (Bld) 24.0 % [facility] MCH (RBC) [Entitic mass] 30.9 pg 26.0 - 34.0 pg [facility] MCHC (RBC) [Mass/Vol] 32.5 g/dL 30.5 - 36.0 g/dL [facility] MCV (RBC) [Entitic vol] 94.9 fL 80.0 - 100.0 fL [facility] Monocytes (Bld) [#/Vol] 0.60 10*3/uL [facility] Monocytes/100 WBC (Bld) 6.8 % [facility] Neutrophils (Bld) [#/Vol] 5.85 10*3/uL [facility] Neutrophils/100 WBC (Bld) 66.1 % [facility] Nucleated RBC (Bld) [#/Vol] NINF [facility] Nucleated RBC/100 WBC (Bld) [Ratio] 0.0 % /100 WBC [facility] Platelet mean volume (Bld) [Entitic vol] 9.6 fL 9.0 - 12.7 fL [facility] Platelets (Bld) [#/Vol] 387 10*3/uL [facility] RBC (Bld) [#/Vol] 4.31 10*6/uL 3.90 - 5.2 0 m/uL [facility] WBC (Bld) [#/Vol] 8.84 10*3/uL [facility] HEMOGLOBIN A1C (POC)on 01-05 HbA1c (Bld) [Mass fraction] 6.5 % Abnormal 4.3 - 5.6 % [facility] GLUCOSE, BLOOD (POC)on 01-01 Glucose [Mass/Vol] 140 mg/dL Abnormal 74 - 99 mg/dL [facility] UA DIP, URINE (POC)on 2023 BILIRUBIN UA (POCT) Negative Negative [facility] CLARITY UA (POCT) Clear [facility] COLOR UA (POCT) Yellow [facility] GLUCOSE UA (POCT) >=1000 Abnormal Negative mg/dL [facility] Hemoglobin Ql (U) Small Abnormal Negative [facility] KETONE UA (POCT) Negative Negative mg/dL [facility] LEUKOCYTES UA (POCT) Negative Negative [facility] NITRITE UA (POCT) Negative Negative [facility] PH UA (POCT) 5.0 4.5 - 8.0 [facility] Protein Ql (U) Negative Negative mg/dL [facility] SPECIFIC GRAVITY UA (POCT) 1.010 1.005 - 1.030 [facility] UROBILINOGEN UA (POCT) 0.2 E.U./dL Lisbeth l E.U./dL [facility] No Panel InformationOrdered By: Sean Bradley on 12-14-2023 Estimated GFR (MDRD) Amer 97 mL/min >60 [facility] Comment on above: GFR Calc Estimated GFR (MDRD) Non-Af Amer 80 mL/min >60 [facility] Comment on above: Non- GFR Calc Serum or plasma creatinine m easurement (mass/volume)Ordered By: Sean Bradley on 12-14-2023 Creatinine [Mass/Vol] 0.76 mg/dL 0.55-1.02 [facility] Comment on above: The validity of the calculated GFR & GFRAA in patients over 70 years has not been determined. Clinical correlation is essential. Serum or plasma urea nitroge n measurement (mass/volume)Ordered By: Sean Bradley on 12-14-2023 Urea nitrogen [Mass/Vol] 22 mg/dL 04-14 [facility] TROPHSon 11-25-2023 Troponin I High Sensitivity 4.86 ng/L Normal 0.00-34.00 [facility] ([place]) Comment on above: Performed By: #### T MURPHY ####[address] [address] .Auto Diffon 11-24-2023 Basophil, Absolute 0.1 10 3/mcL Normal 0.0-0.3 [facility] ([place]) Comment on above: Performed By: #### P BNP, BMP, CBC, GFR, ANEU, ELIZABETH, GANGA, ADIFF #### [address] [address] Basophils/100 WBC (Bld) 0.6 % Normal 0.0-2.5 A [facility] ([place]) Comment on above: Performed By: #### P BNP, BMP, CBC, GFR, ANEU, ELIZABETH, GANGA, ADIFF #### [address] [address] Eosinophil, Absolute 0.2 10 3/mcL Normal 0.0-0.7 [facility] ([place]) Comment on above: Performed By: #### P BNP, BMP, CBC, GFR, ANEUELIZABETH MDW, ADIFF #### [address] [address] Eosinophils/100 WBC (Bld) 2.0 % Normal 0.0-6.0 [facility] ([place]) Comment on above: Performed By: #### P BNP, BMP, CBC, GFR, ANEU, GANGA JOHNSON, ADIFF #### [address] [address] Lymphocyte, Absolute 2.6 10 3/mcL Normal 0.9-4.3 [facility] ([place]) Comment on above: Performed By: #### P BNP, BMP, CBC, GFR, ANEU, TROPHS, W, ADIFF #### [address] [address] Lymphocytes/100 WBC (Bld) 22.2 % Normal 20.0-40.0 [facility] ([place]) Comment on above: Performed By: #### P BNP, BMP, CBC, GFR, ANEU, LAMS, W, ADIFF #### [address] [address] Monocyte, Absolute 0.9 10 3/mcL Normal 0.1-1.4 [facility] ([place]) Comment on above: Performed By: #### P BNP, BMP, CBC, GFR, ANEU, ELIZABETH, W, ADIFF #### [address] [address] Monocytes/100 WBC (Bld) 7.6 % Normal 2.0-13.0 A [facility] ([place]) Comment on above: Performed By: #### P BNP, BMP, CBC, GFR, ANEU, ELIZABETH, GANGA, ADIFF #### [address] [address] Neutrophils/100 WBC (Bld) 67.6 % Normal 50.0-75.0 [facility] ([place]) Comment on above: Performed By: #### P BNP, BMP, CBC, GFR, ANEU, ELIZABETH, GANGA, ADIFF #### [address] [address] .GFRon 11-24-2023 GFR >60 Normal [facility] ([place]) Comment on above: Result Comment: GFR Population [...] CBC, GFR, ELIZABETH VARGAS MDW, ADIFF #### [address] [address] GFR Non- >60 Normal [facility] ([place]) Comment on above: Result Comment: GFR Population [...] CBC, GFR, ELIZABETH VARGAS MDW, ADIFF #### [address] [address] .MDWon 11-24-2023 Monocyte Distribution Width 17.57 Normal 0.00-20.00 [facility] ([place]) Comment on above: Result Comment: For ED adult patients suspected of sepsis, MDW<=20.0 does not rule out sepsis or risk of sepsis Performed By: #### P BNP, BMP, CBC, GFR, ELIZABETH VARGAS MDW, ADIFF #### [address] [address] .NEUABSon 11-24-2023 Neutrophil, Absolute 8.0 10 3/mcL Normal 2.3-8.1 [facility] ([place]) Comment on above: Performed By: #### P BNP, BMP, CBC, GFR, ELIZABETH VARGAS MDW, ADIFF #### [address] [address] BMPon 11-24-2023 BUN/Creatinine Ratio 23.4 ratio High 10.0-22.0 [facility] ([place]) Comment on above: Performed By: #### P BNP, BMP, CBC, GFR, ELIZABETH VARGAS MDW, ADIFF #### [address] [address] Calcium [Mass/Vol] 9.9 mg/dL Normal 8.7-10.4 [facility] ([place]) Comment on above: Performed By: #### P BNP, BMP, CBC, GFR, ELIZABETH VARGAS MDW, ADIFF #### [address] [address] Chloride [Moles/Vol] 106 mmol/L Normal 98-110 [facility] ([place]) Comment on above: Performed By: #### P BNP, BMP, CBC, GFR, ELIZABETH VARGAS MDW, ADIFF #### [place] [id number] CO2 [Moles/Vol] 25 mmol/L Normal 22-32 [facility] ([place]) Comment on above: Performed By: #### P BNP, BMP, CBC, GFR, ELIZABETH VARGAS MDW, ADIFF #### [address] [address] Creatinine [Mass/Vol] 0.64 mg/dL Normal 0.50-1.20 [facility] Comment on above: Performed By: #### P BNP, BMP, CBC, GFR, ELIZABETH VARGAS MDW, ADIFF #### [address] [address] Electrolyte Balance 5.0 mEq/L Normal 4.0-15.0 [facility] ([place]) Comment on above: Performed By: #### P BNP, BMP, CBC, GFR, ELIZABETH VARGAS MDW, ADIFF #### [address] [address] Glucose [Mass/Vol] 158 mg/dL High 82-115 [facility] ([place]) Comment on above: Performed By: #### P BNP, BMP, CBC, GFR, ELIZABETH VARGAS MDW, ADIFF #### [address] [address] Potassium [Moles/Vol] 3.9 mmol/L Normal 3.5-5.0 [facility] Comment on above: Result Comment: Spec imen slightly hemolyzed. Performed By: #### P BNP, BMP, CBC, GFR, ELIZABETH VARGAS MDW, ADIFF #### [address] [address] Sodium [Moles/Vol] 136 mmol/L Normal 136-145 [facility] ([place]) Comment on above: Performed By: #### P BNP, BMP, CBC, GFR, ELIZABETH VARGAS MDW, ADIFF #### [address] [address] Urea nitrogen [Mass/Vol] 15.0 mg/dL Normal 8.0-22.0 [facility] ([place]) Comment on above: Performed By: #### P BNP, BMP, CBC, GFR, ELIZABETH VARGAS MDW, ADIFF #### [address] [address] CBCon 11-24-2023 Erythrocyte distribution width (RBC) [Ratio] 14.3 % Normal 11.5-15.5 [facility] ([place]) Comment on above: Performed By: #### P BNP, BMP, CBC, GFR, ELIZABETH VARGAS MDW, ADIFF #### [address] [address] Hematocrit (Bld) [Volume fraction] 40.9 % Normal 34.0-46.0 [facility] ([place]) Comment on above: Performed By: #### P BNP, BMP, CBC, GFR, ELIZABETH VARGAS MDW, ADIFF #### [address] [address] Hgb 13.7 G/dL Normal 12.0-16.0 [facility] ([place]) Comment on above: Performed By: #### P BNP, BMP, CBC, GFR, ELIZABETH VARGAS MDW, ADIFF #### [place] [id number] MCH (RBC) [Entitic mass] 29.9 pg Normal 27.0-33.0 [facility] ([place]) Comment on above: Performed By: #### P BNP, BMP, CBC, GFR, ANEU, TROPHS, MDW, ADIFF #### [place] [address] MCHC 33.5 G/dL Normal 32.0-36.0 [facility] ([place]) Comment on above: Performed By: #### P BNP, BMP, CBC, GFR, ANEU, TROPHS, MDW, ADIFF #### [place] [address] MCV (RBC) [Entitic vol] 89.5 fL Normal 80.0-99.0 A [facility] ([place]) Comment on above: Performed By: #### P BNP, BMP, CBC, GFR, ANEU, TROPHS, MDW, ADIFF #### [place] [address] Platelet 365 10 3/mcL Normal 150-450 [facility] ([place]) Comment on above: Performed By: #### P BNP, BMP, CBC, GFR, ANEU, TROPHS, MDW, ADIFF #### [place] [address] Platelet mean volume (Bld) [Entitic vol] 7.7 fL Normal 6.6-10.5 [facility] ([place]) Comment on above: Performed By: #### P BNP, BMP, CBC, GFR, ANEU, TROPHS, MDW, ADIFF #### [place] [address] RBC 4.58 10 6/mcL Normal 4.10-5.30 [facility] ([place]) Comment on above: Performed By: #### P BNP, BMP, CBC, GFR, ANEU, TROPHS, MDW, ADIFF #### [place] [address] WBC 11.8 10 3/mcL High 4.5-10.8 [facility] ([place]) Comment on above: Performed By: #### P BNP, BMP, CBC, GFR, ANEU, ELIZABETH, GANGA, ADSTEW #### [place] [address] LABORATORYOrdered By: SYSTEM SYSTEM on 11-24-2023 Troponin I.cardiac DL <= 0.01 ng/mL [Mass/Vol] 4.86 ng/L Normal 0.00 - 34.00 ng/L AH ADM SS Basophils (Bld) [#/Vol] 0.1 103/mcL Normal 0.0 - 0.3 10^3/mcL AH Workflow SS Basophils/100 WBC (Bld) 0.6 % Normal 0.0 - 2.5 % AH Workflow SS Calcium [Mass/Vol] 9.9 mg/dL Normal 8.7 - 10. 4 mg/dL AH ADM SS Chloride [Moles/Vol] 106 mmol/L Normal 98 - 11 0 mEq/L AH ADM SS CO2 [Moles/Vol] 25 mmol/L Normal 22 - 32 mEq/L AH ADM SS Creatinine [Mass/Vol] 0.64 mg/dL Normal 0.50 - 1.20 mg/dL AH ADM SS Electrolyte Balance 5.0 mEq/L Normal 4.0 - 15 .0 mEq/L AH ADM SS Eosinophils (Bld) [#/Vol] 0.2 103/mcL Normal 0.0 - 0.7 10^3/mcL AH Workflow SS Eosinophils/100 WBC (Bld) 2.0 % Normal 0.0 - 6.0 % AH Workflow SS Erythrocyte distribution width (RBC) [Ratio] 14.3 % Normal 11.5 - 15.5 % AH Workflow SS GFR/1.73 sq M.predicted among blacks MDRD (S/P/Bld) [Vol rate/Area] ml/min/1.73sqm Invalid Interpretation Code AH ADM SS Comment on above: Interpretive Data: [...] 33.5 G/dL Normal 32.0 - 36.0 G/dL AH Workflow SS MCV (RBC) [Entitic vol] 89.5 [...] 11-24-2023 Magnesium [Mass/Vol] 1.8 mg/dL Normal 1.6-2.4 [facility] ([place]) Comment on above: Performed By: #### M G #### [address] [address] PBNPon 11-24-2023 Natriuretic peptide B (Bld) [Mass/Vol] 39 pg/mL Normal 0-900 [facility] ([place]) Comment on above: Result Comment: NT-p roBNP results of less than 300 pg/mL effectively rules out acute congestive heart failure with 99% negative predictive value. Performed By: #### P BNP, BMP, CBC, GFR, ELIZABETH VARGAS MDW, ADIFF #### [address] [address] TROPHSon 11-24-2023 Troponin I High Sensitivity 4.59 ng/L Normal 0.00-34.00 [facility] ([place]) Comment on above: Performed By: #### P BNP, BMP, CBC, GFR, SAM, GANGA JOHNSON, ADIFF #### [address] [address] XR CHEST 1 VIEWon 11-24-2023 XR CHEST [...] 11/24/2023 7:08:29 PM Ordering Provider: RICKY Crews [facility] ([place]) CBC W Auto Differential pane l (Bld)on 11-13-2023 Basophils (Bld) [#/Vol] 0.06 10*3/uL <0.11 k/uL [facility] Basophils/100 WBC (Bld) 0.6 % C [facility] Differential cell count method Nom (Bld) Auto [facility] Eosinophils (Bld) [#/Vol] 0.08 10*3/uL <0.46 k/uL [facility] Eosinophils/100 WBC (Bld) 0.8 % [facility] Erythrocyte distribution width (RBC) [Ratio] 13.0 % 11.5 - 15.0 % [facility] Hematocrit (Bld) [Volume fraction] 41.7 % 36.0 - 46.0 % [facility] Hemoglobin (Bld) [Mass/Vol] 14.0 g/dL 11.5 - 15.5 g/dL [facility] Immature granulocytes (Bld) [#/Vol] 0.03 10*3/uL <0.10 k/uL [facility] Immature granulocytes/100 WBC (Bld) 0.3 % [facility] Lymphocytes (Bld) [#/Vol] 1.73 10*3/uL 1.00 - 4.00 k/uL [facility] Lymphocytes/100 WBC (Bld) 17.5 % [facility] MCH (RBC) [Entitic mass] 30.9 pg 26.0 - 34.0 pg [facility] MCHC (RBC) [Mass/Vol] 33.6 g/dL 30.5 - 36.0 g/dL [facility] MCV (RBC) [Entitic vol] 92.1 fL 80.0 - 100.0 fL [facility] Monocytes (Bld) [#/Vol] 0.63 10*3/uL <0.87 k/uL [facility] Monocytes/100 WBC (Bld) 6.4 % C [facility] Neutrophils (Bld) [#/Vol] 7.35 10*3/uL 1.45 - 7.50 k/uL [facility] Neutrophils/100 WBC (Bld) 74.4 % [facility] Nucleated RBC (Bld) [#/Vol] <0.01 k/uL [facility] Nucleated RBC/100 WBC (Bld) [Ratio] 0.0 /100 WBC [facility] Platelet mean volume (Bld) [Entitic vol] 9.9 fL 9.0 - 12.7 fL [facility] Platelets (Bld) [#/Vol] 368 10*3/uL 150 - 400 k/uL [facility] RBC (Bld) [#/Vol] 4.53 10*6/uL 3.90 - 5.2 0 m/uL [facility] WBC (Bld) [#/Vol] 9.88 10*3/uL 3.70 - 11. 00 k/uL [facility] HbA1c (Bld)on 11-13-2023 Average glucose Estimated from glycated hemoglobin (Bld) [Mass/Vol] 140 mg/dL [facility] HbA1c (Bld) [Mass fraction] 6.5 % High 4.3 - 5.6 % [facility] Basophil percentageOrdered B y: Kenton Stapleton on 07-27-2023 Chloride [Moles/Vol] 104 mmol/L 98-107 [facility] Glucose [Mass/Vol] 120 mg/dL 74-106 [facility] Comment on above: Fasting Glucose resu lt from 100 to 125 mg/dL suggests IMPAIRED HOMEOSTASIS per A.D.A. criteria. Potassium [Moles/Vol] 3.1 mmol/L 3.5-5.1 [facility] Sodium [Moles/Vol] 136 mmol/L 136-145 [facility] Laboratory - Chemistry and C hemistry - challengeOrdered By: Kenton Stapleton on 07-27-2023 CO2 [Moles/Vol] 26.0 mmol/L 21.0-32.0 [facility] Urea nitrogen/Creatinine [Mass ratio] 20.1 mg/mg 10-20 [facility] No Panel InformationOrdered By: Kenton Stapleton on 07-27-2023 Estimated GFR (MDRD) Amer 117 mL/min >60 [facility] Comment on above: GFR Calc Estimated GFR (MDRD) Non-Af Amer 97 mL/min >60 [facility] Comment on above: Non- GFR Calc Serum or plasma calcium mulugeta urement (mass/volume)Ordered By: Kenton Stapleton on 07-27-2023 Calcium [Mass/Vol] 9.4 mg/dL 8.5-10.1 [facility] Serum or plasma creatinine m easurement (mass/volume)Ordered By: Kenton Stapleton on 07-27-2023 Creatinine [Mass/Vol] 0.65 mg/dL 0.55-1.02 [facility] Comment on above: The validity of the calculated GFR & GFRAA in patients over 70 years has not been determined. Clinical correlation is essential. Serum or plasma urea nitroge n measurement (mass/volume)Ordered By: Kenton Stapleton on 07-27-2023 Urea nitrogen [Mass/Vol] 13 mg/dL 7-18 [facility] Thin prep Papanicolaou smear with manual screeningOrdered By: Kenton Stapleton on 07-27-2023 Thin prep Papanicolaou smear with manual screening 6 5-15 [facility] Absolute lymphocyte countOrd ered By: Abisai Fuentes on 07-03-2023 Lymphocytes Auto (Unsp spec) [#/Vol] 4.06 10*3/uL 0.83-4.51 [facility] Basophil percentageOrdered B y: Abisai Fuentes on 07-03-2023 Basophils/100 WBC (Bld) 0.3 % 0-1 [facility] Chloride [Moles/Vol] 104 mmol/L 98-107 [facility] Eosinophils/100 WBC (Bld) 2.8 % 0-5 [facility] Glucose [Mass/Vol] 94 mg/dL 74-106 [facility] Neutrophils (Bld) [#/Vol] 5.5 10*3/uL 2.0-7.7 [facility] Neutrophils/100 WBC (Bld) 50.1 % 47-70 [facility] Potassium [Moles/Vol] 3.1 mmol/L 3.5-5.1 [facility] Sodium [Moles/Vol] 135 mmol/L 136-145 [facility] WBC (Bld) [#/Vol] 10.9 10*3/uL 4.4-11.0 [facility] Blood erythrocytes count (nu mber/volume)Ordered By: Abisai Fuentes on 07-03-2023 RBC (Bld) [#/Vol] 3.60 10*6/uL 4.2-5.4 [facility] Blood hemoglobin measurement (mass/volume)Ordered By: Abisai Fuentes on 07-03-2023 Hemoglobin (Bld) [Mass/Vol] 10.9 g/dL 12.0-15.0 [facility] Blood lymphocytes/100 leukoc ytesOrdered By: Abisai Fuentes on 07-03-2023 Lymphocytes/100 WBC (Bld) 37.2 % 19-41 [facility] Blood monocytes/100 leukocyt esOrdered By: Abisai Fuentes on 07-03-2023 Monocytes/100 WBC (Bld) 9.0 % 0-10 [facility] Blood platelet mean volumeOr dered By: Abisai Fuentes on 07-03-2023 Platelet mean volume (Bld) [Entitic vol] 9.4 fL 6.2-12.0 [facility] Determination of erythrocyte mean corpuscular volume (MCV)Ordered By: Abisai Fuentes on 07-03-2023 MCV (RBC) [Entitic vol] 90.6 fL 81-99 [facility] Glucose Glucometer (dC) [M ass/Vol]Ordered By: Abisai Fuentes on 07-03-2023 Glucose [Mass/Vol] 194 mg/dL 74-106 [facility] Comment on above: MANAGEMENT OF PATIEN T CARE PER NURSING PROTOCOL Hematocrit Auto (Bld) [Volum e fraction]Ordered By: Abisai Fuentes on 07-03-2023 Hematocrit (Bld) [Volume fraction] 32.6 % 37-47 [facility] Laboratory - Chemistry and C hemistry - challengeOrdered By: Abisai Fuentes on 07-03-2023 CO2 [Moles/Vol] 27.0 mmol/L 21.0-32.0 [facility] Urea nitrogen/Creatinine [Mass ratio] 11.3 mg/mg 10-20 [facility] Laboratory - Hematology and Cell countsOrdered By: Abisai Fuentes on 07-03-2023 Erythrocyte distribution width (RBC) [Entitic vol] 40.6 fL 35.1-43.9 [facility] Erythrocyte distribution width (RBC) [Ratio] 12.3 % 11.6-14.6 [facility] Immature granulocytes/100 WBC (Bld) 0.600 % 0.0-0.9 [facility] Comment on above: IG% - Immature Granu locytes (promyelocytes, myelocytes and metamyelocytes) > 1% indicates that a LEFT SHIFT is Present. MCH (RBC) [Entitic mass] 30.3 pg 27.0-32.0 [facility] Nucleated RBC/100 WBC (Bld) [Ratio] 0 % 0-5 [facility] MCHC Auto (RBC) [Mass/Vol]Or dered By: Abisai Fuentes on 07-03-2023 MCHC (RBC) [Mass/Vol] 33.4 g/dL 32-36 [facility] Comment on above: Delta: 35.5 on 07/02040 No Panel InformationOrdered By: Abisai Fuentes on 07-03-2023 Estimated Creatinine Clearance Calc 39.21 ml/min [facility] Estimated GFR (MDRD) Amer 147 mL/min >60 [facility] Comment on above: GFR Calc Estimated GFR (MDRD) Non-Af Amer 121 mL/min >60 [facility] Comment on above: Non- GFR Calc Platelets bldOrdered By: Davon Fuentes on 07-03-2023 Platelets (Bld) [#/Vol] 315 10*3/uL 150-450 [facility] Serum or plasma calcium mulugeta urement (mass/volume)Ordered By: Abisai Fuentes on 07-03-2023 Calcium [Mass/Vol] 7.4 mg/dL 8.5-10.1 [facility] Serum or plasma creatinine m easurement (mass/volume)Ordered By: Abisai Fuentes on 07-03-2023 Creatinine [Mass/Vol] 0.53 mg/dL 0.55-1.02 [facility] Comment on above: The validity of the calculated GFR & GFRAA in patients over 70 years has not been determined. Clinical correlation is essential. Serum or plasma urea nitroge n measurement (mass/volume)Ordered By: Abisai Fuentes on 07-03-2023 Urea nitrogen [Mass/Vol] 6 mg/dL 7-18 [facility] Thin prep Papanicolaou smear with manual screeningOrdered By: Abisai Fuentes on 07-03-2023 Thin prep Papanicolaou smear with manual screening 4 5-15 [facility] Basophil percentageOrdered B y: Halley White on 07-02-2023 Bilirubin [Mass/Vol] 0.60 mg/dL 0.20-1.00 [facility] Comment on above: For patients on eltr ombopag therapy, use of Dimension [place] TBIL is not recommended. Cholesterol [Mass/Vol] 74 mg/dL <200 [facility] Comment on above: <200 mg/dL Desirable 200-240 mg/dL Borderline >240 mg/dL High Risk Protein [Mass/Vol] 4.9 g/dL 6.4-8.2 [facility] Triglyceride [Mass/Vol] 116 mg/dL <199 [facility] Comment on above: The drugs N-Acetylcy steine and Metamizole may falsely depress this assay.Serum Triglycerides Reference Interval Normal <150 mg/dL Borderline high 150 - 199 mg/dL High 200 - 499 mg/dL Very High > or = 500 mg/dL Laboratory - Chemistry and C hemistry - challengeOrdered By: [facility] Tracie on 07-02-2023 ALP [Catalytic activity/Vol] 75 U/L 45-117 [facility] ALT [Catalytic activity/Vol] 18 U/L 13-56 [facility] Free T4 [Mass/Vol] 0.68 ng/dL 0.76-1.46 [facility] Globulin (S) [Mass/Vol] 2.4 g/dL 2.2-4.2 [facility] No Panel InformationOrdered By: Halley Hodges on 07-02-2023 Thyroid Stimulating Hormone (TSH) 0.82 uIU/mL 0.358-3.74 [facility] Troponin I High Sensitivity 79 pg/mL 3.0-54.0 [facility] Comment on above: Please Note: New [place] t Units and Gender Specific Reference Ranges. For more information see Policy Stat Procedure [place] High Sensitivity Troponin (TNIH) and attachments. Serum or plasma albumin mulugeta urement (mass/volume)Ordered By: Halley Hodges on 07-02-2023 Albumin [Mass/Vol] 2.5 g/dL 3.2-5.0 [facility] Serum or plasma albumin/glob ulin mass ratioOrdered By: [facility] 07-02-2023 Albumin/Globulin [Mass ratio] 1.0 {ratio} 0.9-2.4 [facility] Serum or plasma cholesterol in HDL measurement (mass/volume)Ordered By: Halley Hodges on 07-02-2023 Cholesterol in HDL [Mass/Vol] 42 mg/dL >40 [facility] Comment on above: The drugs N-Acetylcy steine and Metamizole may falsely depress this assay. Reference Range HDL <40 mg/dL Low HDL Cholesterol HDL >or= 60 mg/dL High HDL Cholesterol Serum or plasma cholesterol in VLDL measurement (mass/volume)Ordered By: Halley Hodges on 07-02-2023 Cholesterol in VLDL [Mass/Vol] 23 mg/dL 5-40 [facility] Serum or plasma low density lipoprotein (LDL) cholesterol measurement (mass/volume)Ordered By: Halley Hodges on 07-02-2023 Cholesterol in LDL [Mass/Vol] 9 mg/dL 0-130 [facility] Stool enteric pathogen panel by probe and target amplification methodOrdered By: Halley Hodges on 07-02-2023 Gastrointestinal pathogens panel NELL+probe (Stl) [facility] Thin prep Papanicolaou smear with manual screeningOrdered By: Halley Hodges on 07-02-2023 Thin prep Papanicolaou smear with manual screening 16 U/L 15-37 [facility] Basophil percentageOrdered B y: Иван Valencia on 07-01-2023 Basophil percentage 0-5 SEEN /hpf 0-5 [facility] Bilirubin Test strip Ql (U)O rdered By: Иван Valencia on 07-01-2023 Bilirubin Ql (U) Negative Negative [facility] INR in Blood by Coagulation assayOrdered By: Иван Valencia on 07-01-2023 INR Coag (Bld) [Relative time] 1.0 {INR} [facility] Ketones Test strip Ql (U)Ord ered By: Иван Valencia on 07-01-2023 Ketones Ql (U) Negative Negative [facility] Laboratory - Chemistry and C hemistry - challengeOrdered By: Halley Hodges on 07-01-2023 Magnesium [Mass/Vol] 2.3 mg/dL 1.6-2.6 [facility] Laboratory - CoagulationOrde red By: Иван Valencia on 07-01-2023 aPTT Coag (Bld) [Time] 26.0 s 24.1-36.2 [facility] PT Coag (PPP) [Time] 13.5 s 11.7-14.9 [facility] Mucus LM Ql (Urine sed)Order ed By: Иван Valencia on 07-01-2023 Mucus Ql (Urine sed) 0 SEEN /hpf [facility] Nitrite Test strip Ql (U)Ord ered By: Иван Valencia on 07-01-2023 Nitrite Ql (U) Negative Negative [facility] Protein Test strip Ql (U)Ord ered By: Иван Valencia on 07-01-2023 Protein Ql (U) Negative Negative [facility] Respiratory pathogens detect ion panel by molecular detection methodOrdered By: Halley Hodges on 07-01-2023 Respiratory pathogens DNA and RNA panel NELL+probe (Resp) [facility] Serum procalcitonin measurem entOrdered By: Halley Hodges on 07-01-2023 Procalcitonin [Mass/Vol] ng/mL 0.00-0.09 [facility] Comment on above: A procalcitonin (PCT ) [...] Ql (Urine sed) 0-5 SEEN /hpf 5-10 [facility] Urine blood detectionOrdered By: Иван Valencia on 07-01-2023 RBC Ql (U) 10 /ul Negative [facility] RBC Ql (U) 0 SEEN /hpf 0-5 [facility] Urine clarityOrdered By: Nimesh Valencia on 07-01-2023 Clarity (U) Clear Clear [facility] Urine color determinationOrd ered By: Иван Valencia on 07-01-2023 Color (U) Yellow Yellow [facility] Urine glucose detectionOrder ed By: Иван Valencia on 07-01-2023 Glucose Ql (U) Normal mg/dl Normal [facility] Urine leukocyte esterase det ection by dipstickOrdered By: Иван Valencia on 07-01-2023 Leukocyte esterase Test strip Ql (U) Negative Negative [facility] Urine pHOrdered By: Иван Valencia on 07-01-2023 pH (U) 6.5 [pH] 5.0 - 8.0 [facility] Urine sediment bacteria coun t by microscopy (number/high power field)Ordered By: Иван Valencia on 07-01-2023 Bacteria LM.HPF (Urine sed) [#/Area] 0 /[HPF] None Seen [facility] Urine specific gravity measu rementOrdered By: Иван Valencia on 07-01-2023 Specific gravity (U) [Rel density] 1.010 1.002-1.030 [facility] Urobilinogen Auto test strip Ql (U)Ordered By: Иван Valencia on 07-01-2023 Urobilinogen Ql (U) Normal mg/dl Normal [facility] Absolute lymphocyte countOrd ered By: Dr. Dallas on 11-04-2022 Lymphocytes Auto (Unsp spec) [#/Vol] 2.30 10*3/uL 0.83-4.51 [facility] Basophil percentageOrdered B y: Dr. Dallas on 11-04-2022 Basophils/100 WBC (Bld) 0.6 % 0-[address] [facility] Chloride [Moles/Vol] 104 mmol/L 98-107 [facility] Eosinophils/100 WBC (Bld) 2.7 % 0-5 [facility] Glucose [Mass/Vol] 174 mg/dL 74-106 [facility] Comment on above: Fasting Glucose resu lt greater than or equal to 126 mg/dL suggests DIABETES MELLITUS per A.D.A. criteria. Neutrophils (Bld) [#/Vol] 6.2 10*3/uL 2.0-7.7 [facility] Neutrophils/100 WBC (Bld) 64.4 % 47-70 [facility] Potassium [Moles/Vol] 3.9 mmol/L 3.5-5.1 [facility] Sodium [Moles/Vol] 137 mmol/L 136-145 [facility] WBC (Bld) [#/Vol] 9.7 10*3/uL 4.4-11.0 [facility] Blood erythrocytes count (nu mber/volume)Ordered By: Dr. Dallas on 11-04-2022 RBC (Bld) [#/Vol] 4.71 10*6/uL 4.2-5.4 [facility] Blood hemoglobin measurement (mass/volume)Ordered By: Dr. Dallas on 11-04-2022 Hemoglobin (Bld) [Mass/Vol] 14.2 g/dL 12.0-15.0 [facility] Blood lymphocytes/100 leukoc ytesOrdered By: Dr. Dallas on 11-04-2022 Lymphocytes/100 WBC (Bld) 23.8 % 19-41 [facility] Blood monocytes/100 leukocyt esOrdered By: Dr. Dallas on 11-04-2022 Monocytes/100 WBC (Bld) 8.0 % 0-[address] [facility] Blood platelet mean volumeOr dered By: Dr. Dallas on 11-04-2022 Platelet mean volume (Bld) [Entitic vol] 9.4 fL 6.2-12.0 [facility] Determination of erythrocyte mean corpuscular volume (MCV)Ordered By: Dr. Dallas on 11-04-2022 MCV (RBC) [Entitic vol] 92.6 fL 81-99 [facility] Glucose Glucometer (dC) [M ass/Vol]Ordered By: Dr. Dallas on 11-04-2022 Glucose [Mass/Vol] 175 mg/dL 74-106 [facility] Comment on above: MANAGEMENT OF PATIEN T CARE PER NURSING PROTOCOL Hematocrit Auto (Bld) [Volum e fraction]Ordered By: Dr. Dallas on 11-04-2022 Hematocrit (Bld) [Volume fraction] 43.6 % 37-47 [facility] Laboratory - Chemistry and C hemistry - challengeOrdered By: Dr. Dallas on 11-04-2022 CO2 [Moles/Vol] 25.0 mmol/L 21.0-32.0 [facility] Urea nitrogen/Creatinine [Mass ratio] 20.9 mg/mg 10-20 [facility] Laboratory - Hematology and Cell countsOrdered By: Dr. Dallas on 11-04-2022 Erythrocyte distribution width (RBC) [Entitic vol] 44.3 fL 35.1-43.9 [facility] Erythrocyte distribution width (RBC) [Ratio] 13.1 % 11.6-14.6 [facility] Immature granulocytes/100 WBC (Bld) 0.500 % 0.0-0.9 [facility] Comment on above: IG% - Immature Granu locytes (promyelocytes, myelocytes and metamyelocytes) > 1% indicates that a LEFT SHIFT is Present. MCH (RBC) [Entitic mass] 30.1 pg 27.0-32.0 [facility] Nucleated RBC/100 WBC (Bld) [Ratio] 0 % 0-5 [facility] MCHC Auto (RBC) [Mass/Vol]Or dered By: Dr. Dallas on 11-04-2022 MCHC (RBC) [Mass/Vol] 32.6 g/dL 32-36 [facility] No Panel InformationOrdered By: Dr. Dallas on 11-04-2022 Estimated Creatinine Clearance Calc 39.21 ml/min [facility] Estimated GFR (MDRD) Amer 135 mL/min >60 [facility] Comment on above: GFR Calc Estimated GFR (MDRD) Non-Af Amer 111 mL/min >60 [facility] Comment on above: Non- GFR Calc Platelets bldOrdered By: Dr. Dallas on 11-04-2022 Platelets (Bld) [#/Vol] 325 10*3/uL 150-450 [facility] Serum or plasma calcium mulugeta urement (mass/volume)Ordered By: Dr. Dallas on 11-04-2022 Calcium [Mass/Vol] 9.4 mg/dL 8.5-10.1 [facility] Serum or plasma creatinine m easurement (mass/volume)Ordered By: Dr. Dallas on 11-04-2022 Creatinine [Mass/Vol] 0.58 mg/dL 0.55-1.02 [facility] Comment on above: The validity of the calculated GFR & GFRAA in patients over 70 years has not been determined. Clinical correlation is essential. Serum or plasma urea nitroge n measurement (mass/volume)Ordered By: Dr. Dallas on 11-04-2022 Urea nitrogen [Mass/Vol] 12 mg/dL 7-18 [facility] Thin prep Papanicolaou smear with manual screeningOrdered By: Dr. Dallas on 11-04-2022 Thin prep Papanicolaou smear with manual screening 8 5-15 [facility] Basophil percentageOrdered B y: Dr. Mirza on 11-03-2022 Cholesterol [Mass/Vol] 183 mg/dL <200 [facility] Comment on above: <200 mg/dL Desirable 200-240 mg/dL Borderline >240 mg/dL High Risk Triglyceride [Mass/Vol] 146 mg/dL <199 [facility] Comment on above: The drugs N-Acetylcy steine and Metamizole may falsely depress this assay.Serum Triglycerides Reference Interval Normal <150 mg/dL Borderline high 150 - 199 mg/dL High 200 - 499 mg/dL Very High > or = 500 mg/dL Serum or plasma cholesterol in HDL measurement (mass/volume)Ordered By: Dr. Mirza on 11-03-2022 Cholesterol in HDL [Mass/Vol] 55 mg/dL >40 [facility] Comment on above: The drugs N-Acetylcy steine and Metamizole may falsely depress this assay. Reference Range HDL <40 mg/dL Low HDL Cholesterol HDL >or= 60 mg/dL High HDL Cholesterol Serum or plasma cholesterol in VLDL measurement (mass/volume)Ordered By: Dr. Mirza on 11-03-2022 Cholesterol in VLDL [Mass/Vol] 29 mg/dL 5-40 [facility] Serum or plasma low density lipoprotein (LDL) cholesterol measurement (mass/volume)Ordered By: Dr. Mirza on 11-03-2022 Cholesterol in LDL [Mass/Vol] 99 mg/dL 0-130 [facility] Whole blood hemoglobin A1c/t otal hemoglobin ratio (mass fraction)Ordered By: Dr. Mirza on 11-03-2022 HbA1c (Bld) [Mass fraction] 7.0 % 3.8-5.6 [facility] Comment on above: Normal < 5.7 % Predi abetic 5.7 - 6.4 % Diabetic >or= 6.5 % Please note range changes. INR in Blood by Coagulation assayOrdered By: Dr. Chanel on 11-02-2022 INR Coag (Bld) [Relative time] 1.0 {INR} [facility] Laboratory - CoagulationOrde red By: Dr. Chanel on 11-02-2022 aPTT Coag (Bld) [Time] 29.8 s 24.1-36.2 [facility] PT Coag (PPP) [Time] 12.9 s 11.7-14.9 [facility] No Panel InformationOrdered By: Dr. Mirza on 11-02-2022 Troponin I High Sensitivity 12 pg/mL 3.0-54.0 [facility] Comment on above: Please Note: New Deanna t Units and Gender Specific Reference Ranges. For more information see Policy Stat Procedure [place] High Sensitivity Troponin (TNIH) and attachments. Basophil percentageon 2021 Basophil percentage < 0.9 mg/dL 0.55-1.02 [facility] Work Phone: No Panel Informationon 04-09 Bedside Estimated GFR (eGFR) > 60.0000 mL/min >60 [facility] Work Phone: XR ANKLE GENERAL 3V AP/LAT/O BL LEFTon 02-28-2022 [facility] XR ANKLE GENERAL 3V AP/LAT/O BL LEFTon 02-10-2022 [facility] XR ANKLE GENERAL 3V AP/LAT/O BL LEFTon 01-23-2022 [facility] XR Ankle - left AP and Later al and obliqueon 01-23-2022 IMPRESSION: Possible small fracture involving the inferior aspect of the lateral malleolus. Calcaneal spurring. Artist Consultant: AUGUSTIN Transcribe Date/Time: Jan 23 2022 5:55P [...] lateral malleolus. [id number] SE_DIVISION OF RADIOLOGY Provider, Rodolfo Briscoe [facility] - 01/23/2022 * * *Final Report* [...] aspect of the lateral malleolus. Calcaneal spurring. Artist Consultant: [facility] Transcribe Date/Time: Jan 23 2022 5:55P Dictated by : RODRIGO GONSALVES MD This examination was interpreted and the report reviewed and electronically signed by: RODRIGO GONSALVES MD on Jan 23 2022 5:59PM EST [facility] Radiology Study observation (narrative) Huan charles [facility] XR Ankle - left AP and Later al and obliqueOrdered By: Ccf Provider on 01-23-2022 [facility] Glucose,Bedsideon 12-28-2020 Glucose [Mass/Vol] 344 mg/dL High 70-100 [facility] [employer] Comment on above: Result Comment: Test performed by glucose meter. Results may be 10%-15% lower than serum/plasma values. (CLIA ID [id number]) Performed By: #### B GLU #### [facility] [address] [place] [id number] Glucose [Mass/Vol] 200 mg/dL High 70-100 [facility] Comment on above: Result Comment: Test performed by glucose meter. Results may be 10%-15% lower than serum/plasma values. (CLIA ID [id number]) Performed By: #### B GLU #### [facility] [employer] [address] [address] POCT Glucoseon 12-28-2020 Glucose [Mass/Vol] 344 mg/dL High 70 - 100 mg/dL [facility] Work Phone: Comment on above: Test performed by gl ucose meter. Results may be 10%-15% lower than serum/plasma values. (CLIA ID [id number]) Interpretation and review of laboratory results Abnormal [facility] Work Phone: Test Performed by [facility], [address] [place] [address] [facility] Work Phone: Glucose [Mass/Vol] 200 mg/dL High 70 - 100 mg/dL [facility] Work Phone: Comment on above: Test performed by gl ucose meter. Results may be 10%-15% lower than serum/plasma values. (CLIA ID [id number]) Interpretation and review of laboratory results Abnormal [facility] Work Phone: Test Performed by [facility], [address] [place] [address] [facility] Work Phone: COVID-19on 12-27-2020 SARS-CoV-2 Not Detected. Not Detected [facility] Work Phone: Comment on above: Not Detected. Expected Result: Not Detected _ Real-time, RT-PCR performed on the EPIS System by the [facility] Negative results do not preclude SARS-CoV-2 infection and should not be used as the sole basis for treatment or other patient management decisions. This assay was developed and its performance characteristics determined by the [facility]. The U. S. Food and Drug Administration has not approved or cleared this test; however, FDA clearance or approval is not currently required for clinical use. Test Performed by [employer], [address] [place] [address] Glucose,Bedsideon 12-27-2020 Glucose [Mass/Vol] 124 mg/dL High 70-100 [facility] Comment on above: Result Comment: Test performed by glucose meter. Results may be 10%-15% lower than serum/plasma values. (CLIA ID [id number]) Performed By: #### B GLU #### [facility] [address] [place] [address] Glucose [Mass/Vol] 197 mg/dL High 70-100 [facility] Comment on above: Result Comment: Test performed by glucose meter. Results may be 10%-15% lower than serum/plasma values. (CLIA ID [id number]) Performed By: #### B GLU #### [facility] [address] [place] [address] Glucose [Mass/Vol] 215 mg/dL High 70-100 [facility] Comment on above: Result Comment: Test performed by glucose meter. Results may be 10%-15% lower than serum/plasma values. (CLIA ID [id number]) Performed By: #### B GLU #### [facility] [address] [place] [address] POCT Glucoseon 12-27-2020 Glucose [Mass/Vol] 124 mg/dL High 70 - 100 mg/dL [facility] Work Phone: Comment on above: Test performed by gl ucose meter. Results may be 10%-15% lower than serum/plasma values. (CLIA ID [id number]) Interpretation and review of laboratory results Abnormal [facility] Work Phone: Test Performed by [facility], [address] [place] [id number] [place], [place] [address]A Work Phone: Glucose [Mass/Vol] 197 mg/dL High 70 - 100 mg/dL [facility] Work Phone: Comment on above: Test performed by gl ucose meter. Results may be 10%-15% lower than serum/plasma values. (CLIA ID [id number]) Interpretation and review of laboratory results Abnormal [facility] Work Phone: Test Performed by [facility], [address] [place] [id number] [place], [place] [address] Work Phone: Glucose [Mass/Vol] 215 mg/dL High 70 - 100 mg/dL [facility] Work Phone: Comment on above: Test performed by gl ucose meter. Results may be 10%-15% lower than serum/plasma values. (CLIA ID [id number]) Interpretation and review of laboratory results Abnormal [facility] Work Phone: Test Performed by [facility], [address] [place] [address] [facility] Work Phone: [id number] 12-27-2020 SARS-CoV-2 (COVID-19) RNA NELL+probe Ql (Unsp spec) SARS-CoV-2 --> Status: F Not Detected. Expected Result: Not Detected _ Real-time, RT-PCR performed on the EPIS System by the [facility] [facility] Negative results do not preclude SARS-CoV-2 infection and should not be used as the sole basis for treatment or other patient management decisions. This assay was developed and its performance characteristics determined by the [facility]. The U. S. Food and Drug Administration has not approved or cleared this test; however, FDA clearance or approval is not currently required for clinical use. Expected Result: Not Detected _ Real-time, RT-PCR performed on the EPIS System by the [facility] Negative results do not preclude SARS-CoV-2 infection and should not be used as the sole basis for treatment or other patient management decisions. This assay was developed and its performance characteristics determined by the [facility]. The U. S. Food and Drug Administration has not approved or cleared this test; however, FDA clearance or approval is not currently required for clinical use. Normal [facility] Comment on above: Performed By: #### B GLU #### [facility] [address] [place] [phone] Glucose,Bedsideon 12-26-2020 Glucose [Mass/Vol] 186 mg/dL High 70-100 [facility] Comment on above: Result Comment: Test performed by glucose meter. Results may be 10%-15% lower than serum/plasma values. (CLIA ID [id number]) Performed By: #### B GLU #### [address] [place] [address] Glucose [Mass/Vol] 213 mg/dL High 70-100 [facility] Comment on above: Result Comment: Test performed by glucose meter. Results may be 10%-15% lower than serum/plasma values. (CLIA ID [id number]) Performed By: #### B GLU #### [address] [place] [address] Glucose [Mass/Vol] 190 mg/dL High 70-100 [facility] Comment on above: Result Comment: Test performed by glucose meter. Results may be 10%-15% lower than serum/plasma values. (CLIA ID [id number]) Performed By: #### M DIFF, HEMDF #### [address] [address] [place] [address] Glucose [Mass/Vol] 238 mg/dL High 70-100 [facility] Comment on above: Result Comment: Test performed by glucose meter. Results may be 10%-15% lower than serum/plasma values. (CLIA ID [id number]) Performed By: #### B GLU #### [address] [place] [address] Glucose [Mass/Vol] 179 mg/dL High 70-100 [facility] Comment on above: Result Comment: Test performed by glucose meter. Results may be 10%-15% lower than serum/plasma values. (CLIA ID [id number]) Performed By: #### B GLU #### [address] [place] [address] POCT Glucoseon 12-26-2020 Glucose [Mass/Vol] 186 mg/dL High 70 - 100 mg/dL [facility] Work Phone: Comment on above: Test performed by gl ucose meter. Results may be 10%-15% lower than serum/plasma values. (CLIA ID [id number]) Interpretation and review of laboratory results Abnormal [facility] Work Phone: Test Performed by [facility], [place] [address] [employer] Work Phone: 1 Glucose [Mass/Vol] 213 mg/dL High 70 - 100 mg/dL [employer] Work Phone: 1 Comment on above: Test performed by gl ucose meter. Results may be 10%-15% lower than serum/plasma values. (CLIA ID [id number]) Interpretation and review of laboratory results Abnormal [employer] Work Phone: 1 Test Performed by [facility], [facility] [place] [address] [employer] Work Phone: 1 Glucose [Mass/Vol] 190 mg/dL High 70 - 100 mg/dL [employer] Work Phone: 1 Comment on above: Test performed by gl ucose meter. Results may be 10%-15% lower than serum/plasma values. (CLIA ID [id number]) Interpretation and review of laboratory results Abnormal [employer] Work Phone: 1 Test Performed by [facility], [address] [place] [address] [employer] Work Phone: 1 Glucose [Mass/Vol] 238 mg/dL High 70 - 100 mg/dL [employer] Work Phone: 1 Comment on above: Test performed by gl ucose meter. Results may be 10%-15% lower than serum/plasma values. (CLIA ID [id number]) Interpretation and review of laboratory results Abnormal [employer] Work Phone: 1 Test Performed by [facility], [facility] [place] [address] [employer] Work Phone: [phone] Glucose,Bedsideon 12-25-2020 Glucose [Mass/Vol] 250 mg/dL High 70-100 [facility] Comment on above: Result Comment: Test performed by glucose meter. Results may be 10%-15% lower than serum/plasma values. (CLIA ID [id number]) Performed By: #### B GLU #### [facility] [place] [address] Glucose [Mass/Vol] 252 mg/dL High 70-100 [facility] [employer] Comment on above: Result Comment: Test performed by glucose meter. Results may be 10%-15% lower than serum/plasma values. (CLIA ID [id number]) Performed By: #### B GLU #### [facility] [address] [place] [address] Glucose [Mass/Vol] 218 mg/dL High 70-100 [facility] [employer] [facility] Comment on above: Result Comment: Test performed by glucose meter. Results may be 10%-15% lower than serum/plasma values. (CLIA ID [id number]) Performed By: #### B GLU #### [facility] [address] [place] [address] POCT Glucoseon 12-25-2020 Glucose [Mass/Vol] 179 mg/dL High 70 - 100 mg/dL [employer] Work Phone: Comment on above: Test performed by gl ucose meter. Results may be 10%-15% lower than serum/plasma values. (CLIA ID [id number]) Interpretation and review of laboratory results Abnormal [employer] Work Phone: Test Performed by [facility], [address] [place] [address] [employer] Work Phone: Glucose [Mass/Vol] 250 mg/dL High 70 - 100 mg/dL [employer] Work Phone: Comment on above: Test performed by gl ucose meter. Results may be 10%-15% lower than serum/plasma values. (CLIA ID [id number]) Interpretation and review of laboratory results Abnormal [employer] Work Phone: Test Performed by [facility], [address] [place] [address] [employer] Work Phone: Glucose [Mass/Vol] 252 mg/dL High 70 - 100 mg/dL [facility] Work Phone: Comment on above: Test performed by gl ucose meter. Results may be 10%-15% lower than serum/plasma values. (CLIA ID [id number]) Interpretation and review of laboratory results Abnormal [employer] Work Phone: Test [place] [address] [employer] Work Phone: 1 Glucose [Mass/Vol] 218 mg/dL High 70 - 100 mg/dL [employer] Work Phone: Comment on above: Test performed by [place] ucose meter. Results may be 10%-15% lower than serum/plasma values. (CLIA ID [id number]) Interpretation and review of laboratory results Abnormal [employer] Work Phone: 1 Test Performed by [facility], [place] [address] [employer] Work Phone: CBC Auto Differentialon 11-27 Absolute Baso # 0.1 10*3/uL 0.0 - 0.2 10*3/uL [employer] Work Phone: 1 Absolute Neut # 8.6 10*3/uL High 1.8 - 7.0 10*3/uL [employer] Work Phone: 1 Basophils/100 WBC (Bld) 0.4 % 0.0 - 2.0 % [employer] Work Phone: Eosinophils (Bld) [#/Vol] 0.2 10*3/uL 0.0 - 0.5 10*3/uL [employer] Work Phone: 1 Eosinophils/100 WBC (Bld) 1.5 % 1.0 - 6.0 % [employer] Work Phone: Erythrocyte distribution width (RBC) [Ratio] 13.6 % 11.5 - 14.5 % [employer] Work Phone: Granulocytes/100 WBC (Bld) 59.5 % 40.0 - 80.0 % [employer] Work Phone: Hematocrit (Bld) [Volume fraction] 37.2 % 35.0 - 47.0 % [employer] Work Phone: Hemoglobin (Bld) [Mass/Vol] 12.5 g/dL 11.7 - 16.0 g/dL [employer] Work Phone: Interpretation and review of laboratory results Abnormal [employer] Work Phone: 1) 22 Lymphocytes (Bld) [#/Vol] 4.5 10*3/uL High 1.0 - 4.3 10*3/uL [employer] Work Phone: 1) 22 Lymphocytes/100 WBC (Bld) 30.8 % 20.0 - 40.0 % [employer] Work Phone: 1) MCH (RBC) [Entitic mass] 30.4 pg 26.0 - 34.0 pg [employer] Work Phone: 1) MCHC (RBC) [Mass/Vol] 33.6 % 32.0 - 36.0 % [employer] Work Phone: 1) MCV (RBC) [Entitic vol] 90.3 fL 79.0 - 98.0 fL [employer] Work Phone: 1) Monocytes (Bld) [#/Vol] 1.1 10*3/uL High 0.0 - 0.8 10*3/uL [employer] Work Phone: 1) 22 Monocytes/100 WBC (Bld) 7.8 % 2.0 - 10.0 % [employer] Work Phone: 1) Platelet mean volume (Bld) [Entitic vol] 7.7 fL 7.4 - 10.4 fL [employer] Work Phone: 1) 22 Platelets (Bld) [#/Vol] 278 10*3/uL 140 - 440 10*3/uL [employer] Work Phone: 1) RBC (Bld) [#/Vol] 4.12 10*6/uL 3.80 - 5.2 0 10*6/uL [employer] Work Phone: 1) 22 WBC (Bld) [#/Vol] 14.5 10*3/uL High 3.6 - 10.7 10*3/uL [employer] Work Phone: 1 Test Performed by [facility], [address] [place] [address] [employer] Work Phone: 1 22 Glucose, Bedsideon 1 Confirmation see below Normal [facility] Comment on above: Result Comment: No c onfirmation received. Performed By: #### G LUB #### [facility] [address] [place] [address] Glucose,Bedside > 450 High 70-100 [facility] Comment on above: Result Comment: Test performed by glucose meter. Results may be 10%-15% lower than serum/plasma values. (CLIA ID [id number]) Performed By: #### G LUB #### [facility] [address] [place] [address] Glucose,Bedsideon 12-24-2020 Glucose [Mass/Vol] 242 mg/dL High 70-100 [facility] Comment on above: Result Comment: Test performed by glucose meter. Results may be 10%-15% lower than serum/plasma values. (CLIA ID [id number]) Performed By: #### M DIFF, HEMDF #### [facility] [address] [place] [address] Glucose [Mass/Vol] 314 mg/dL High 70-100 [facility] Comment on above: Result Comment: Test performed by glucose meter. Results may be 10%-15% lower than serum/plasma values. (CLIA ID [id number]) Performed By: #### M DIFF, HEMDF #### [facility] [employer] [facility] [address] [place] [address] Glucose [Mass/Vol] 192 mg/dL High 70-100 [facility] Comment on above: Result Comment: Test performed by glucose meter. Results may be 10%-15% lower than serum/plasma values. (CLIA ID [id number]) Performed By: #### M DIFF, HEMDF #### [facility] [employer] [facility] [address] [place] [address] Glucose [Mass/Vol] 189 mg/dL High 70-100 [facility] Comment on above: Result Comment: Test performed by glucose meter. Results may be 10%-15% lower than serum/plasma values. (CLIA ID [id number]) Performed By: #### B GLU #### [facility] [address] [place] [address] Glucose [Mass/Vol] 201 mg/dL High 70-100 [facility] Comment on above: Result Comment: Test performed by glucose meter. Results may be 10%-15% lower than serum/plasma values. (CLIA ID [id number]) Performed By: #### M DIFF, HEMDF #### [facility] [address] [place], [place] Glucose [Mass/Vol] 247 mg/dL High 70-100 [facility] Comment on above: Result Comment: Test performed by glucose meter. Results may be 10%-15% lower than serum/plasma values. (CLIA ID [id number]) Performed By: #### M DIFF, HEMDF #### [facility] [address] [place], [place] Hemogram w/ Autodiffon 12-24 Abs Baso Cnt 0.1 10*3/uL Normal 0.0-0.2 [facility] Comment on above: Performed By: #### B GLU #### [address] [place], [place] Abs Neutrophile Cnt 8.6 10*3/uL High 1.8-7.0 [facility] Comment on above: Performed By: #### B GLU #### [address] [place], [place] Basophils/100 WBC (Bld) 0.4 % Normal 0.0-2.0 [facility] Comment on above: Performed By: #### B GLU #### [address] [place], [place] Eosinophils (Bld) [#/Vol] 0.2 10*3/uL Normal 0.0-0.5 [facility] Comment on above: Performed By: #### B GLU #### [address] [place], [place] Eosinophils/100 WBC (Bld) 1.5 % Normal 1.0-6.0 [facility] Comment on above: Performed By: #### B GLU #### [address] [address] [place], [place] Erythrocyte distribution width (RBC) [Ratio] 13.6 % Normal 11.5-14.5 [facility] Comment on above: Performed By: #### B GLU #### [address] [place], [place] Granulocytes/100 WBC (Bld) 59.5 % Normal 40.0-80.0 [facility] Comment on above: Performed By: #### B GLU #### [facility] [address] [place], [place] Hematocrit (Bld) [Volume fraction] 37.2 % Normal 35.0-47.0 [facility] Comment on above: Performed By: #### B GLU #### [address] [place], [place] Hemoglobin (Bld) [Mass/Vol] 12.5 g/dL Normal 11.7-16.0 [facility] Comment on above: Performed By: #### B GLU #### [address] [place], [place] Lymphocytes (Bld) [#/Vol] 4.5 10*3/uL High 1.0-4.3 [facility] Comment on above: Performed By: #### B GLU #### [address] [place], [place] Lymphocytes/100 WBC (Bld) 30.8 % Normal 20.0-40.0 [facility] Comment on above: Performed By: #### B GLU #### [address] [place], [place] MCH (RBC) [Entitic mass] 30.4 pg Normal 26.0-34.0 [facility] Comment on above: Performed By: #### B GLU #### [address] [place], [place] MCHC 33.6 % Normal 32.0-36.0 [facility] Comment on above: Performed By: #### B GLU #### [address] [place], [place] MCV (RBC) [Entitic vol] 90.3 fL Normal 79.0-98.0 [facility] Comment on above: Performed By: #### B GLU #### [facility] [address] [place] [address] Monocytes (Bld) [#/Vol] 1.1 10*3/uL High 0.0-0.8 [facility] Comment on above: Performed By: #### B GLU #### [facility] [address] [place] [address] Monocytes/100 WBC (Bld) 7.8 % Normal 2.0-10.0 [facility] Comment on above: Performed By: #### B GLU #### [facility] [address] [place] [address] Platelet mean volume (Bld) [Entitic vol] 7.7 fL Normal 7.4-10.4 [facility] Comment on above: Performed By: #### B GLU #### [facility] [address] [place] [address] Platelets (Bld) [#/Vol] 278 10*3/uL Normal 140-440 [facility] Comment on above: Performed By: #### B GLU #### [facility] [address] [place] [address] RBC (Bld) [#/Vol] 4.12 10*6/uL Normal 3.80-5.20 [facility] Comment on above: Performed By: #### B GLU #### [facility] [address] [place] [address] WBC (Bld) [#/Vol] 14.5 10*3/uL High 3.6-10.7 [facility] Comment on above: Performed By: #### B GLU #### [facility] [facility] [address] [place] [address] POC Glucose, Whole Bloodon 0 12-24-2020 Glucose [Mass/Vol] mg/dL High 70 - 100 mg/dL [facility] Work Phone: Comment on above: Test performed by gl ucose meter. Results may be 10%-15% lower than serum/plasma values. (CLIA ID [id number]) Interpretation and review of laboratory results Abnormal [facility] Work Phone: Sodium [Moles/Vol] see below [employer] Work Phone: 1 Comment on above: No confirmation rece ived. Test [place]formed [place] [address] [employer] Work Phone: 1 POCT Glucoseon 12-24-2020 Glucose [Mass/Vol] 242 mg/dL High 70 - 100 mg/dL [employer] Work Phone: 1 Comment on above: Test performed by gl ucose meter. Results may be 10%-15% lower than serum/plasma values. (CLIA ID [id number]) Interpretation and review of laboratory results Abnormal [employer] Work Phone: 1 Test Performed by [facility], [facility] [place] [address] [employer] Work Phone: 1 Glucose [Mass/Vol] 314 mg/dL High 70 - 100 mg/dL [employer] Work Phone: 1 Comment on above: Test performed by gl ucose meter. Results may be 10%-15% lower than serum/plasma values. (CLIA ID [id number]) Interpretation and review of laboratory results Abnormal [employer] Work Phone: 1 Test Performed by [facility], [place] [address] [employer] Work Phone: 1 Glucose [Mass/Vol] 192 mg/dL High 70 - 100 mg/dL [employer] Work Phone: 1 Comment on above: Test performed by gl ucose meter. Results may be 10%-15% lower than serum/plasma values. (CLIA ID [id number]) Interpretation and review of laboratory results Abnormal [employer] Work Phone: 1 Test [place] [address] [employer] Work Phone: 1 Glucose [Mass/Vol] 189 mg/dL High 70 - 100 mg/dL [employer] Work Phone: 1 Comment on above: Test performed by gl ucose meter. Results may be 10%-15% lower than serum/plasma values. (CLIA ID [id number]) Interpretation and review of laboratory results Abnormal [employer] Work Phone: 1 Test Performed by [facility], [facility] [place] [address] [employer] Work Phone: 1 Glucose [Mass/Vol] 201 mg/dL High 70 - 100 mg/dL [employer] Work Phone: 1 Comment on above: Test performed by [place] ucose meter. Results may be 10%-15% lower than serum/plasma values. (CLIA ID [id number]) Interpretation and review of laboratory results Abnormal [employer] Work Phone: 1 Test Performed by [facility], [facility] [place] [address] [employer] Work Phone: 1 Glucose [Mass/Vol] 247 mg/dL High 70 - 100 mg/dL [employer] Work Phone: 1 Comment on above: Test performed by [place] ucose meter. Results may be 10%-15% lower than serum/plasma values. (CLIA ID [id number]) Interpretation and review of laboratory results Abnormal [employer] Work Phone: 1 Test Performed by [facility], [facility] [place] [address] [employer] Phone: 1 TSH without Reflexon 021 TSH Qn 3.200 u[IU]/mL 0.465 - 4.680 u[IU]/mL [employer] Phone: 1 Test Performed by [facility], [facility] [place] [address] [employer] Work Phone: 1 Thyroid Stim. Hormoneon 11-27 Thyroid Stim. Hormone 3.200 u[IU]/mL Normal 0.465-4.68 0 [facility] Comment on above: Performed By: #### M DIFF, HEMDF #### [facility] [address] [place] [address] CBC Auto Differentialon 11-27 Absolute Baso # 0.1 10*3/uL 0.0 - 0.2 10*3/uL [facility] Work Phone: 1 Absolute Neut # 13.3 10*3/uL High 1.8 - 7.0 10*3/uL [employer] Work Phone: 1 22 Basophils/100 WBC (Bld) 0.8 % 0.0 - 2.0 % [employer] Work Phone: Eosinophils (Bld) [#/Vol] 0.0 10*3/uL 0.0 - 0.5 10*3/uL [employer] Work Phone: 1 Eosinophils/100 WBC (Bld) 0.0 % Low 1.0 - 6.0 % [employer] Work Phone: 1 Erythrocyte distribution width (RBC) [Ratio] 13.4 % 11.5 - 14.5 % [employer] Work Phone: Granulocytes/100 WBC (Bld) 85.4 % High 40.0 - 80.0 % [employer] Work Phone: Hematocrit (Bld) [Volume fraction] 37.0 % 35.0 - 47.0 % [employer] Work Phone: Hemoglobin (Bld) [Mass/Vol] 12.6 g/dL 11.7 - 16.0 g/dL [employer] Phone: 1 Interpretation and review of laboratory results Abnormal [employer] Work Phone: Lymphocytes (Bld) [#/Vol] 1.4 10*3/uL 1.0 - 4.3 10*3/uL [employer] Work Phone: 22 Lymphocytes/100 WBC (Bld) 8.9 % Low 20.0 - 40.0 % [employer] Work Phone: MCH (RBC) [Entitic mass] 30.8 pg 26.0 - 34.0 pg [employer] Work Phone: MCHC (RBC) [Mass/Vol] 34.1 % 32.0 - 36.0 % [employer] Work Phone: MCV (RBC) [Entitic vol] 90.3 fL 79.0 - 98.0 fL [employer] Work Phone: 1() 22 Monocytes (Bld) [#/Vol] 0.8 10*3/uL 0.0 - 0.8 10*3/uL [employer] Work Phone: 1 22 Monocytes/100 WBC (Bld) 4.9 % 2.0 - 10.0 % [employer] Work Phone: [phone] Platelet mean volume (Bld) [Entitic vol] 7.9 fL 7.4 - 10.4 fL [employer] Work Phone: 1) 22 Platelets (Bld) [#/Vol] 287 10*3/uL 140 - 440 10*3/uL [employer] Work Phone: 1) 22 RBC (Bld) [#/Vol] 4.10 10*6/uL 3.80 - 5.2 0 10*6/uL [employer] Work Phone: [phone] WBC (Bld) [#/Vol] 15.6 10*3/uL High 3.6 - 10.7 10*3/uL [employer] Work Phone: [phone] Test Performed by [facility], [address] [place] [address] [employer] Work Phone: [phone] Glucose,Bedsideon 12-23-2020 Glucose [Mass/Vol] 192 mg/dL High 70-100 [facility] Comment on above: Result Comment: Test performed by glucose meter. Results may be 10%-15% lower than serum/plasma values. (CLIA ID [id number]) Performed By: #### B GLU #### [facility] [address] [place] [phone] Glucose [Mass/Vol] 244 mg/dL High 70-100 [facility] Comment on above: Result Comment: Test performed by glucose meter. Results may be 10%-15% lower than serum/plasma values. (CLIA ID [id number]) Performed By: #### B GLU #### [facility] [place] [address] Glucose [Mass/Vol] 187 mg/dL High 70-100 [facility] Comment on above: Result Comment: Test performed by glucose meter. Results may be 10%-15% lower than serum/plasma values. (CLIA ID [id number]) Performed By: #### M DIFF, HEMDF #### [place] [address] [place], [place] Glucose [Mass/Vol] 264 mg/dL High 70-100 [facility] Comment on above: Result Comment: Test performed by glucose meter. Results may be 10%-15% lower than serum/plasma values. (CLIA ID [id number]) Performed By: #### B GLU #### [place] [address] [place], [place] Glucose [Mass/Vol] 246 mg/dL High 70-100 [facility] Comment on above: Result Comment: Test performed by glucose meter. Results may be 10%-15% lower than serum/plasma values. (CLIA ID [id number]) Performed By: #### M DIFF, HEMDF #### [place] [address] [place], [place] Glucose [Mass/Vol] 325 mg/dL High 70-100 [facility] Comment on above: Result Comment: Test performed by glucose meter. Results may be 10%-15% lower than serum/plasma values. (CLIA ID [id number]) Performed By: #### B GLU #### [place] [address] [place], [place] Hemogram w/ Autodiffon 12-23 Abs Baso Cnt 0.1 10*3/uL Normal 0.0-0.2 [facility] Comment on above: Performed By: #### M DIFF, HEMDF #### [place] [address] [place], [place] Abs Neutrophile Cnt 13.3 10*3/uL High 1.8-7.0 [facility] Comment on above: Performed By: #### M DIFF, HEMDF #### [place] [address] [place], [place] Basophils/100 WBC (Bld) 0.8 % Normal 0.0-2.0 [facility] Comment on above: Performed By: #### M DIFF, HEMDF #### [facility] [address] [place] [address] Eosinophils (Bld) [#/Vol] 0.0 10*3/uL Normal 0.0-0.5 [facility] Comment on above: Performed By: #### M DIFF, HEMDF #### [facility] [address] [place] [address] Eosinophils/100 WBC (Bld) 0.0 % Low 1.0-6.0 [facility] Comment on above: Performed By: #### M DIFF, HEMDF #### [facility] [address] [place] [address] Erythrocyte distribution width (RBC) [Ratio] 13.4 % Normal 11.5-14.5 [facility] Comment on above: Performed By: #### M DIFF, HEMDF #### [place] [address] [place] [address] Granulocytes/100 WBC (Bld) 85.4 % High 40.0-80.0 [facility] Comment on above: Performed By: #### M DIFF, HEMDF #### [facility] [address] [place] [address] Hematocrit (Bld) [Volume fraction] 37.0 % Normal 35.0-47.0 [facility] Comment on above: Performed By: #### M DIFF, HEMDF #### [facility] [address] [place] [address] Hemoglobin (Bld) [Mass/Vol] 12.6 g/dL Normal 11.7-16.0 [facility] Comment on above: Performed By: #### M DIFF, HEMDF #### [facility] [address] [place] [address] Lymphocytes (Bld) [#/Vol] 1.4 10*3/uL Normal 1.0-4.3 [facility] Comment on above: Performed By: #### M DIFF, HEMDF #### [facility] [address] [place] [address] Lymphocytes/100 WBC (Bld) 8.9 % Low 20.0-40.0 [facility] Comment on above: Performed By: #### M DIFF, HEMDF #### [facility] [address] [place], [place] MCH (RBC) [Entitic mass] 30.8 pg Normal 26.0-34.0 [facility] Comment on above: Performed By: #### M DIFF, HEMDF #### [facility] [address] [place], [place] MCHC 34.1 % Normal 32.0-36.0 [facility] Comment on above: Performed By: #### M DIFF, HEMDF #### [place] [address] [place], [place] MCV (RBC) [Entitic vol] 90.3 fL Normal 79.0-98.0 [facility] Comment on above: Performed By: #### M DIFF, HEMDF #### [place] [address] [place], [place] Monocytes (Bld) [#/Vol] 0.8 10*3/uL Normal 0.0-0.8 [facility] Comment on above: Performed By: #### M DIFF, HEMDF #### [place] [address] [place], [place] Monocytes/100 WBC (Bld) 4.9 % Normal 2.0-10.0 [facility] Comment on above: Performed By: #### M DIFF, HEMDF #### [place] [address] [place], [place] Platelet mean volume (Bld) [Entitic vol] 7.9 fL Normal 7.4-10.4 [facility] Comment on above: Performed By: #### M DIFF, HEMDF #### [place] [address] [place], [place] Platelets (Bld) [#/Vol] 287 10*3/uL Normal 140-440 [facility] Comment on above: Performed By: #### M DIFF, HEMDF #### [place] [address] [place], [place] RBC (Bld) [#/Vol] 4.10 10*6/uL Normal 3.80-5.20 [facility] [employer] [facility] Comment on above: Performed By: #### M DIFF, HEMDF #### [facility] [address] [place] [address] WBC (Bld) [#/Vol] 15.6 10*3/uL High 3.6-10.7 [facility] [employer] Comment on above: Performed By: #### M DIFF, HEMDF #### [facility] [address] [place] [address] POCT Glucoseon 12-23-2020 Glucose [Mass/Vol] 192 mg/dL High 70 - 100 mg/dL [facility] Work Phone: [phone] Comment on above: Test performed by gl ucose meter. Results may be 10%-15% lower than serum/plasma values. (CLIA ID [id number]) Interpretation and review of laboratory results Abnormal [facility] Work Phone: [phone] Performed by [facility], [facility] [employer] [place], [place] [address] [place], [place] [address] Work Phone: [phone] Glucose [Mass/Vol] 244 mg/dL High 70 - 100 mg/dL [facility] Work Phone: 1 Comment on above: Test performed by gl ucose meter. Results may be 10%-15% lower than serum/plasma values. (CLIA ID [id number]) Interpretation and review of laboratory results Abnormal [facility] Work Phone: [phone] Test Performed by [facility], [facility] [place] [address] [facility] Work Phone: [phone] Glucose [Mass/Vol] 187 mg/dL High 70 - 100 mg/dL [facility] Work Phone: 1 Comment on above: Test performed by gl ucose meter. Results may be 10%-15% lower than serum/plasma values. (CLIA ID [id number]) Interpretation and review of laboratory results Abnormal [facility] Work Phone: [phone] Test Performed by [facility], [facility] [place] [address] [employer] Work Phone: [phone] Glucose [Mass/Vol] 264 mg/dL High 70 - 100 mg/dL [employer] Work Phone: 1 Comment on above: Test performed by gl ucose meter. Results may be 10%-15% lower than serum/plasma values. (CLIA ID [id number]) Interpretation and review of laboratory results Abnormal [employer] Work Phone: 1 Test Performed by [facility], [place] [address] [employer] Work Phone: 1 Glucose [Mass/Vol] 246 mg/dL High 70 - 100 mg/dL [employer] Work Phone: 1 Comment on above: Test performed by gl ucose meter. Results may be 10%-15% lower than serum/plasma values. (CLIA ID [id number]) Interpretation and review of laboratory results Abnormal [employer] Work Phone: 1 Test Performed by [facility], [place] [address] [employer] Work Phone: 1 Glucose [Mass/Vol] 325 mg/dL High 70 - 100 mg/dL [employer] Work Phone: 1 Comment on above: Test performed by gl ucose meter. Results may be 10%-15% lower than serum/plasma values. (CLIA ID [id number]) Interpretation and review of laboratory results Abnormal [employer] Work Phone: 1 Test Performed by [facility], [place] [address] [employer] Work Phone: 1 CBC Auto Differentialon 11-27 Erythrocyte distribution width (RBC) [Ratio] 13.7 % 11.5 - 14.5 % [employer] Work Phone: Hematocrit (Bld) [Volume fraction] 39.2 % 35.0 - 47.0 % [employer] Work Phone: Hemoglobin (Bld) [Mass/Vol] 13.1 g/dL 11.7 - 16.0 g/dL [employer] Work Phone: 1 Interpretation and review of laboratory results Abnormal [employer] Work Phone: 1 MCH (RBC) [Entitic mass] 30.2 pg 26.0 - 34.0 pg [employer] Work Phone: [phone] MCHC (RBC) [Mass/Vol] 33.3 % 32.0 - 36.0 % [employer] Work Phone: [phone] MCV (RBC) [Entitic vol] 90.7 fL 79.0 - 98.0 fL [employer] Work Phone: [phone] Platelet mean volume (Bld) [Entitic vol] 7.8 fL 7.4 - 10.4 fL [employer] Work Phone: [phone] Platelets (Bld) [#/Vol] 315 10*3/uL 140 - 440 10*3/uL [employer] Work Phone: [phone] RBC (Bld) [#/Vol] 4.32 10*6/uL 3.80 - 5.2 0 10*6/uL [employer] Work Phone: [phone] WBC (Bld) [#/Vol] 19.6 10*3/uL High 3.6 - 10.7 10*3/uL [employer] Work Phone: [phone] Test Performed by [facility], [address] [place] [address] [employer] Work Phone: [phone] Glucose,Bedsideon 12-22-2020 Glucose [Mass/Vol] 239 mg/dL High 70-100 [facility] Comment on above: Result Comment: Test performed by glucose meter. Results may be 10%-15% lower than serum/plasma values. (CLIA ID [id number]) Performed By: #### B GLU #### [facility] [address] [place] [address] Glucose [Mass/Vol] 276 mg/dL High 70-100 [facility] Comment on above: Result Comment: Test performed by glucose meter. Results may be 10%-15% lower than serum/plasma values. (CLIA ID [id number]) Performed By: #### B GLU #### [facility] [address] [place] [address] Glucose [Mass/Vol] 361 mg/dL High 70-100 [facility] Comment on above: Result Comment: Test performed by glucose meter. Results may be 10%-15% lower than serum/plasma values. (CLIA ID [id number]) Performed By: #### B GLU #### [place] [address] [place] [address] Glucose [Mass/Vol] 323 mg/dL High 70-100 [facility] Comment on above: Result Comment: Test performed by glucose meter. Results may be 10%-15% lower than serum/plasma values. (CLIA ID [id number]) Performed By: #### B GLU #### [place] [address] [place] [address] Glucose [Mass/Vol] 351 mg/dL High 70-100 [facility] Comment on above: Result Comment: Test performed by glucose meter. Results may be 10%-15% lower than serum/plasma values. (CLIA ID [id number]) Performed By: #### B GLU #### [place] [address] [place] [address] Glucose [Mass/Vol] 293 mg/dL High 70-100 [facility] Comment on above: Result Comment: Test performed by glucose meter. Results may be 10%-15% lower than serum/plasma values. (CLIA ID [id number]) Performed By: #### B GLU #### [place] [address] [place] [address] Hemoglobin A1Con 12-22-2020 Glucose [Mass/Vol] 203 mg/dL Normal [facility] Comment on above: Performed By: #### B GLU #### [place] [address] [place] [address] HbA1c (Bld) [Mass fraction] 8.7 % Abnormal [facility] Comment on above: Result Comment: Norm al less than 5.7% Prediabetes 5.7% to 6.4% Diabetes 6.5% or higher --HgbA1C levels may not be accurate in patients who have renal disease, received recent blood transfusions, are anemic, or who have dyshemoglobinemia. Performed By: #### B GLU #### [place] [address] [place], [place] Hemoglobin A1con 12-22-2020 eAG 203 mg/dL [facility] Work Phone: HbA1c (Bld) [Mass fraction] 8.7 % Abnormal [facility] Work Phone: Comment on above: Normal less than 5.7 % Prediabetes 5.7% to 6.4% Diabetes 6.5% or higher --HgbA1C levels may not be accurate in patients who have renal disease, received recent blood transfusions, are anemic, or who have dyshemoglobinemia. Interpretation and review of laboratory results Abnormal [facility] Work Phone: Test Per[facility] by [facility] Work Phone: Hemogram w/ Autodiffon 12-22 Erythrocyte distribution width (RBC) [Ratio] 13.7 % Normal 11.5-14.5 [facility] Comment on above: Performed By: #### M DIFF, HEMDF #### [facility] [employer] [place] [address] [place], [place] Hematocrit (Bld) [Volume fraction] 39.2 % Normal 35.0-47.0 [facility] Comment on above: Performed By: #### M DIFF, HEMDF #### [address] [place], [place] Hemoglobin (Bld) [Mass/Vol] 13.1 g/dL Normal 11.7-16.0 [facility] Comment on above: Performed By: #### M DIFF, HEMDF #### [place] [address] [place], [place] MCH (RBC) [Entitic mass] 30.2 pg Normal 26.0-34.0 [facility] Comment on above: Performed By: #### M DIFF, HEMDF #### [address] MCHC 33.3 % Normal 32.0-36.0 [facility] Comment on above: Performed By: #### M DIFF, HEMDF #### [address] MCV (RBC) [Entitic vol] 90.7 fL Normal 79.0-98.0 [facility] Comment on above: Performed By: #### M DIFF, HEMDF #### [place] [address] [place], [place] Platelet mean volume (Bld) [Entitic vol] 7.8 fL Normal 7.4-10.4 [facility] Comment on above: Performed By: #### M DIFF, HEMDF #### [place] [address] [place], [place] Platelets (Bld) [#/Vol] 315 10*3/uL Normal 140-440 [facility] Comment on above: Performed By: #### M DIFF, HEMDF #### [place] [address] [place], [place] RBC (Bld) [#/Vol] 4.32 10*6/uL Normal 3.80-5.20 [facility] Comment on above: Performed By: #### M DIFF, HEMDF #### [place] [address] [place], [place] WBC (Bld) [#/Vol] 19.6 10*3/uL High 3.6-10.7 [facility] Comment on above: Performed By: #### M DIFF, HEMDF #### [place] [address] [place], [place] Manual Diffon 12-22-2020 Abs Lymph Cnt 2.7 10*3/uL Normal 1.1-4.5 [facility] Comment on above: Performed By: #### M DIFF, HEMDF #### [place] [address] [place], [place] Abs Monocyte Cnt 1.6 10*3/uL High 0.2-1.1 [facility] Comment on above: Performed By: #### M DIFF, HEMDF #### [place] [address] [place], [place] Abs Neutrophile Cnt 15.3 10*3/uL High 2.2-8.2 [facility] Comment on above: Performed By: #### M DIFF, HEMDF #### [facility] [address] [place], [place] Lymphocytes 14 % Low 20-40 [facility] Comment on above: Performed By: #### M DIFF, HEMDF #### [facility] [address] [place], [place] Monocytes 8 % Normal 2-10 [facility] Comment on above: Performed By: #### M DIFF, HEMDF #### [place] [address] [place], [place] RBC Morphology Normal Normal [facility] Comment on above: Performed By: #### M DIFF, HEMDF #### [place] [address] [place], [place] Seg Neutrophils 78 % Normal 40-80 [facility] Comment on above: Performed By: #### M DIFF, HEMDF #### [place] [address] [place], [place] Abs Baso Cnt 0.0 10*3/uL Normal 0.0-0.2 [facility] Comment on above: Performed By: #### M DIFF, HEMDF #### [place] [address] [place], [place] Abs Eosin Cnt 0.0 10*3/uL Normal 0.0-0.5 [facility] Comment on above: Performed By: #### M DIFF, HEMDF #### [place] [address] [place], [place] Bands 0 % Normal 0-3 [facility] Comment on above: Performed By: #### M DIFF, HEMDF #### [place] [address] [place], [place] Basophils 0 % Normal 0-2 [facility] Comment on above: Performed By: #### M DIFF, HEMDF #### [place] [address] [place], [place] Cells counted 100 Normal [facility] Comment on above: Performed By: #### M DIFF, HEMDF #### [place] [address] [place], [place] Eosinophils 0 % Low 1-6 [facility] Comment on above: Performed By: #### M DIFF, HEMDF #### [facility] [address] [place] [address] Manual Differentialon 2020 Absolute Baso # 0.0 10*3/uL 0.0 - 0.2 10*3/uL [employer] Work Phone: 1 Absolute Eos # 0.0 10*3/uL 0.0 - 0.5 10*3/uL [facility] Work Phone: 1 Absolute Lymph # 2.7 10*3/uL 1.1 - 4.5 10*3/uL [employer] Work Phone: 1 Absolute Boyle # 1.6 10*3/uL High 0.2 - 1.1 10*3/uL [employer] Work Phone: 1 Absolute Neut # 15.3 10*3/uL High 2.2 - 8.2 10*3/uL [facility] Work Phone: 1 22 Bands 0 % 0 - 3 % [employer] Work Phone: 1 22 Basophils 0 % 0 - 2 % [facility] Work Phone: 1 22 Eosinophils 0 % Low 1 - 6 % [employer] Work Phone: 1 Interpretation and review of laboratory results Abnormal [employer] Work Phone: 1 22 Lymphocytes 14 % Low 20 - 40 % [employer] Work Phone: 1 22 Monocytes 8 % 2 - 10 % [employer] Work Phone: 1 RBC morphology finding Nom (Bld) Normal [facility] Work Phone: 1 22 Seg Neutrophils 78 % 40 - 80 % [employer] Work Phone: 1 22 TOTAL CELLS COUNTED 100 [employer] Work Phone: [phone] Test Performed by [facility], [address] [place] [address] [facility] Work Phone: [phone] POCT Glucoseon 12-22-2020 Glucose [Mass/Vol] 239 mg/dL High 70 - 100 mg/dL [employer] Work Phone: Comment on above: Test performed by gl ucose meter. Results may be 10%-15% lower than serum/plasma values. (CLIA ID [id number]) Interpretation and review of laboratory results Abnormal [employer] Work Phone: 1 Test Performed by [facility], [facility] [address] [employer] Work Phone: 1 Glucose [Mass/Vol] 276 mg/dL High 70 - 100 mg/dL [employer] Work Phone: 1 Comment on above: Test performed by gl ucose meter. Results may be 10%-15% lower than serum/plasma values. (CLIA ID [id number]) Interpretation and review of laboratory results Abnormal [employer] Work Phone: 1 Test Performed by [facility], [place] [address] [employer] Work Phone: 1 Glucose [Mass/Vol] 361 mg/dL High 70 - 100 mg/dL [employer] Work Phone: 1 Comment on above: Test performed by gl ucose meter. Results may be 10%-15% lower than serum/plasma values. (CLIA ID [id number]) Interpretation and review of laboratory results Abnormal [employer] Work Phone: [phone] Test Performed by [facility], [facility] [place] [address] [employer] Work Phone: [phone] Glucose [Mass/Vol] 323 mg/dL High 70 - 100 mg/dL [employer] Work Phone: [phone] Comment on above: Test performed by gl ucose meter. Results may be 10%-15% lower than serum/plasma values. (CLIA ID [id number]) Interpretation and review of laboratory results Abnormal [employer] Work Phone: 1 Test Performed by [facility], [place] [place] [address] [employer] Work Phone: [phone] Glucose [Mass/Vol] 351 mg/dL High 70 - 100 mg/dL [employer] Work Phone: [phone] Comment on above: Test performed by gl ucose meter. Results may be 10%-15% lower than serum/plasma values. (CLIA ID [id number]) Interpretation and review of laboratory results Abnormal [employer] Work Phone: Test Performed by [employer] [address] [place] [address] [employer] Work Phone: [phone] Glucose [Mass/Vol] 293 mg/dL High 70 - 100 mg/dL [employer] Work Phone: [phone] Comment on above: Test performed by [place] ucose meter. Results may be 10%-15% lower than serum/plasma values. (CLIA ID [id number]) Interpretation and review of laboratory results Abnormal [employer] Work Phone: [phone] Test Performed by [employer] [address] [place] [address] [employer] Work Phone: APTTon 12-21-2020 aPTT Coag (Bld) [Time] 25.8 s Normal 20.0-30.5 [facility] Comment on above: Result Comment: NOTE : The therapeutic time for Heparin anticoagulation, based on Xa activity inhibition, is an APTT of 46-80 seconds. Performed By: #### B GLU #### [facility] [employer] [address] [place] [address] aPTT Coag (Bld) [Time] 25.8 s 20.0 - 30.5 s [facility] Work Phone: [phone] Comment on above: NOTE: The therapeuti c time for Heparin anticoagulation, based on Xa activity inhibition, is an APTT of 46-80 seconds. Basic Metabolic Panelon - Calcium [Mass/Vol] 9.7 mg/dL Normal 8.4-10.4 [facility] Comment on above: Performed By: #### B GLU #### [facility] [employer] [address] [place] [address] Glucose [Mass/Vol] 311 mg/dL High 70-100 [facility] Comment on above: Performed By: #### B GLU #### [facility] [employer] [facility] [place], [place] Anion gap [Moles/Vol] 7 mmol/L Normal 3-13 [facility] Comment on above: Performed By: #### B GLU #### [facility] [address] [place], [place] CO2 [Moles/Vol] 26 mmol/L Normal 22-30 [facility] Comment on above: Performed By: #### B GLU #### [facility] [address] [place], [place] Creatinine [Mass/Vol] 0.42 mg/dL Low 0.52-1.25 [facility] Comment on above: Performed By: #### B GLU #### [facility] [address] [place], [place] eGFR OTHER > 90.0 Normal >60 [facility] Comment on above: Result Comment: KDIG O [...] secretion. Performed By: #### B GLU #### [facility] [address] [place], [place] GFR/1.73 sq M.predicted among blacks MDRD (S/P/Bld) [Vol rate/Area] mL/min/{1.73_m2} Normal >60 [facility] Comment on above: Performed By: #### B GLU #### [facility] [address] [place], [place] Urea nitrogen [Mass/Vol] 15 mg/dL Normal 7-20 [facility] Comment on above: Performed By: #### B GLU #### [address] [place] [address] Chloride [Moles/Vol] 99 mmol/L Normal 98-107 [facility] Comment on above: Performed By: #### B GLU #### [facility] [address] [place], [place] Potassium [Moles/Vol] 3.9 mmol/L Normal 3.5-5.1 [facility] Comment on above: Performed By: #### B GLU #### [facility] [address] [place], [place] Sodium [Moles/Vol] 132 mmol/L Low 135-145 [facility] Comment on above: Performed By: #### B GLU #### [address] [address] [place], [place] Anion gap [Moles/Vol] 7 mmol/L 3 - 13 mmol/L [facility] Work Phone: Calcium [Mass/Vol] 9.7 mg/dL 8.4 - 10. 4 mg/dL [facility] Work Phone: Chloride [Moles/Vol] 99 mmol/L 98 - 10 7 mmol/L [facility] Work Phone: CO2 [Moles/Vol] 26 mmol/L 22 - 30 mmol/L [facility] Work Phone: Creatinine [Mass/Vol] 0.42 mg/dL Low 0.52 - 1.25 mg/dL [facility] Work Phone: EGFR IF NonAfrican Pakistani >90.0 >60 mL/min [facility] Work Phone: Comment on above: KDIGO guidelines [...] MDRD (S/P/Bld) [Vol rate/Area] mL/min/{1.73_m2} >60 mL/min [facility] Work Phone: Glucose [Mass/Vol] 311 mg/dL High 70 - 100 mg/dL [facility] Work Phone: Interpretation and review of laboratory results Abnormal [facility] Work Phone: Potassium [Moles/Vol] 3.9 mmol/L 3.5 - 5.1 mmol/L [facility] Work Phone: Sodium [Moles/Vol] 132 mmol/L Low 135 - 145 mmol/L [facility] Work Phone: Urea nitrogen [Mass/Vol] 15 mg/dL 7 - 20 mg/dL [facility] Work Phone: Test Performed by [facility], [address] [place] [address] [facility] Work Phone: CBCon 12-21-2020 Erythrocyte distribution width (RBC) [Ratio] 13.3 % 11.5 - 14.5 % [facility] Work Phone: Hematocrit (Bld) [Volume fraction] 45.2 % 35.0 - 47.0 % [facility] Work Phone: Hemoglobin (Bld) [Mass/Vol] 15.1 g/dL 11.7 - 16.0 g/dL [facility] Work Phone: MCH (RBC) [Entitic mass] 30.3 pg 26.0 - 34.0 pg [facility] Work Phone: MCHC (RBC) [Mass/Vol] 33.5 % 32.0 - 36.0 % [facility] Work Phone: MCV (RBC) [Entitic vol] 90.7 fL 79.0 - 98.0 fL [facility] Work Phone: Platelet mean volume (Bld) [Entitic vol] 7.7 fL 7.4 - 10.4 fL [employer] Work Phone: [phone] Platelets (Bld) [#/Vol] 332 10*3/uL 140 - 440 10*3/uL [employer] Work Phone: [phone] RBC (Bld) [#/Vol] 4.99 10*6/uL 3.80 - 5.2 0 10*6/uL [employer] Work Phone: [phone] WBC (Bld) [#/Vol] 15.7 10*3/uL High 3.6 - 10.7 10*3/uL [employer] Work Phone: [phone] CR Chest 1 View Frontalon CR Chest 1 View Frontal Patient Name: DEONTE GARCIA Diagnostic Radiology ACCESSION EXAM DATE/TIME PROCEDURE ORDERING PROVIDER [id number] 12/21/2020 06:06 EDT CR Chest 1 View Frontal MD ROCK ZACHARY CPT code 50618 Reason For Exam (CR Chest 1 View [...] Transcribed Date and Time: 12/21/2020 8:00 Normal [facility] CR Spine Lumbosacral 2 or 3 Viewson 12-21-2020 CR Spine Lumbosacral 2 or 3 Views Patient Name: DEONTE BLANCO Diagnostic Radiology ACCESSION EXAM DATE/TIME PROCEDURE ORDERING PROVIDER [id number] 12/21/2020 06:06 EDT CR Spine Lumbosacral 2 MD ROCK ZACHARY or 3 Views CPT code 34564 Reason For Exam (CR Spine Lumbosacral 2 or 3 Views) pre-surgery films Report Examination: Lumbar spine 3 views Indication: pre-surgery films Findings: The vertebral bodies are in gross anatomic alignment. No acute fracture is demonstrated. Ukkg-nd-domiqzxv levocurvature is noted. There are at least moderate degenerative facet changes of the lower lumbar spine. There is at least moderate degenerative disc disease at T12/L1 and L1/L2. Zhsx-vq-pnzmrlsz calcification of the abdominal aorta is noted. Multiple rounded surgical coils overlie the mid abdomen most suggestive of prior herniorrhaphy. Impression: No acute osseous abnormality. Report Dictated on Final Dictated: 12/21/2020 8:31 am Dictating Physician: MD FLEMING KRIKOR Signed Date and Time: 12/21/2020 8:33 am Signed by: MD FLEMING KRIKOR Transcribed Date and Time: 12/21/2020 8:31 Normal [facility] EKG 12 Leadon 12-21-2020 Karthik, [facility] Incoming Cardiology Results From [facility] - 12/21/2020 9:40 AM EDT [facility] Test Date: 2020-12-21 Pat Name: Deonte Blanco Department: [facility] Room: 6134 Gender: F Remarketing Manager: CHRISTA : 1955 Requested By: SHILPI ROCK Order Number: [id number] Reading MD: Suresh Vides Measurements Intervals [place] Rate: 67 P: -40 MI: 248 QRS: 3 QRSD: 93 T: -15 QT: 428 QTc: 452 Interpretive Statements Sinus rhythm FIRST DEGREE AV BLOCK Probable left ventricular hypertrophy Nonspecific T abnormalities, anterior leads Poor R wave progression Electronically Signed On 12-21-2020 9:39:37 EDT by Suresh GODWIN Work Phone: [facility] Test Date: 2020-12-21 Pat Name: Deonte Blanco Department: 1A Room: [facility] Gender: F Remarketing Manager: CHRISTA : 1955 Requested By: SHILPI ROCK Order Number: [id number] Reading MD: Suresh Vides Measurements Intervals [place] Rate: 67 P: -40 MI: 248 QRS: 3 QRSD: 93 T: -15 QT: 428 QTc: 452 Interpretive Statements Sinus rhythm FIRST DEGREE AV BLOCK Probable left ventricular hypertrophy Nonspecific T abnormalities, anterior leads Poor R wave progression Electronically Signed On 12-21-2020 9:39:37 EDT by Suresh Vides [facility] Work Phone: Glucose,Bedsideon 12-21-2020 Glucose [Mass/Vol] 298 mg/dL [facility] [address] Comment on above: Result Comment: Test performed by glucose meter. Results may be 10%-15% lower than serum/plasma values. (CLIA ID [id number]) Performed By: #### M DIFF, HEMDF #### [employer] [address] [place] [address] Glucose [Mass/Vol] 223 mg/dL [facility] [address] [facility] Comment on above: Result Comment: Test performed by glucose meter. Results may be 10%-15% lower than serum/plasma values. (CLIA ID [id number]) Performed By: #### B GLU #### [facility] [facility] [address] [place] [address] Glucose [Mass/Vol] 237 mg/dL [facility] [address] [facility] Comment on above: Result Comment: Test performed by glucose meter. Results may be 10%-15% lower than serum/plasma values. (CLIA ID [id number]) Performed By: #### B GLU #### [facility] [facility] [address] [place] [address] Glucose [Mass/Vol] 299 mg/dL High [address] [facility] Work Phone: Comment on above: Test performed by gl ucose meter. Results may be 10%-15% lower than serum/plasma values. (CLIA ID [id number]) Result Comment: Test performed by glucose meter. Results may be 10%-15% lower than serum/plasma values. (CLIA ID [id number]) Performed By: #### B GLU #### [address] Hemogramon 12-21-2020 Erythrocyte distribution width (RBC) [Ratio] 13.3 % Normal 11.5-14.5 [facility] Comment on above: Performed By: #### B GLU #### [address] [address] [place], [place] Hematocrit (Bld) [Volume fraction] 45.2 % Normal 35.0-47.0 [facility] Comment on above: Performed By: #### B GLU #### [address] [address] [place], [place] Hemoglobin (Bld) [Mass/Vol] 15.1 g/dL Normal 11.7-16.0 [facility] Comment on above: Performed By: #### B GLU #### [address] [place], [place] MCH (RBC) [Entitic mass] 30.3 pg Normal 26.0-34.0 [facility] Comment on above: Performed By: #### B GLU #### [address] MCHC 33.5 % Normal 32.0-36.0 [facility] Comment on above: Performed By: #### B GLU #### [address] [place], [place] MCV (RBC) [Entitic vol] 90.7 fL Normal 79.0-98.0 [facility] Comment on above: Performed By: #### B GLU #### [address] Platelet mean volume (Bld) [Entitic vol] 7.7 fL Normal 7.4-10.4 [facility] Comment on above: Performed By: #### B GLU #### [address] Platelets (Bld) [#/Vol] 332 10*3/uL Normal 140-440 [facility] Comment on above: Performed By: #### B GLU #### [facility] [address] [address] [place] [address] RBC (Bld) [#/Vol] 4.99 10*6/uL Normal 3.80-5.20 [facility] Comment on above: Performed By: #### B GLU #### [facility] [address] WBC (Bld) [#/Vol] 15.7 10*3/uL High 3.6-10.7 [facility] Comment on above: Performed By: #### B GLU #### [facility] [employer] [address] [address] [place] [address] Otheron 12-21-2020 Test Performed by [facility], [address] [place] [address] [employer] Work Phone: Interpretation and review of laboratory results Abnormal [employer] Work Phone: [phone] Test Performed by [facility], [address] [place] [address] [employer] Work Phone: [phone] POCT Glucoseon 12-21-2020 Glucose [Mass/Vol] 298 mg/dL High 70 - 100 mg/dL [facility] Work Phone: Comment on above: Test performed by gl ucose meter. Results may be 10%-15% lower than serum/plasma values. (CLIA ID [id number]) Interpretation and review of laboratory results Abnormal [employer] Work Phone: [phone] Test Performed by [facility], [address] [place] [address] [facility] Work Phone: Glucose [Mass/Vol] 223 mg/dL High 70 - 100 mg/dL [employer] Work Phone: Comment on above: Test performed by gl ucose meter. Results may be 10%-15% lower than serum/plasma values. (CLIA ID [id number]) Interpretation and review of laboratory results Abnormal [employer] Work Phone: [phone] Test Performed by [facility], [address] [place] [address] [facility] Work Phone: Glucose [Mass/Vol] 237 mg/dL High 70 - 100 mg/dL [facility] Work Phone: [phone] Comment on above: Test performed by [employer] ucose meter. Results may be 10%-15% lower than serum/plasma values. (CLIA ID [id number]) Interpretation and review of laboratory results Abnormal [facility] Work Phone: [phone] Test Performed by [facility] [employer], [address] [place] [address] [facility] Work Phone: Prothrombin Timeon INR 1.0 Normal 0.9-1.1 [facility] [employer] [facility] Comment on above: Result Comment: Dain mmended [...] Infarction Performed By: #### B GLU #### [address] [address] PT Coag (PPP) [Time] 10.6 s Normal 9.0-12.0 [facility] [employer] [facility] Comment on above: Result Comment: . Performed By: #### B GLU #### [address] [address] Protime-INRon 12-21-2020 INR Coag (PPP) [Relative time] 1.0 {INR} [facility] Work Phone: Comment on above: Recommended Anticoag [...] Gel: POS Antibody Screen Gel: NEG Normal [facility] Comment on above: Performed By: #### B GLU #### [facility] [address] [place] [phone] TYPE AND SCREENon 12-21-2020 Sodium [Moles/Vol] Positive [employer] Work Phone: Sodium [Moles/Vol] A [facility] Work Phone: Sodium [Moles/Vol] Negative [facility] Work Phone: Test Performed by [employer], [address] [place] [address] [facility] Work Phone: XR CHEST 1 VWon 12-21-2020 Patient Name: DEONTE BLANCO Diagnostic Radiology ACCESSION EXAM DATE/TIME PROCEDURE ORDERING PROVIDER [id number] 12/21/2020 06:06 EDT CR Chest 1 View Frontal MD ROCK ZACHARY CPT code 55059 Reason For Exam (CR Chest 1 View [...] KRIKOR Transcribed Date and Time: 12/21/2020 8:00 [facility] Work Phone: Karthik, [facility] Incoming Radiology Results From [facility] - 12/21/2020 8:27 AM EDT Patient Name: DEONTE BLANCO Diagnostic Radiology ACCESSION EXAM DATE/TIME PROCEDURE ORDERING PROVIDER [id number] 12/21/2020 06:06 EDT CR Chest 1 View Frontal MD ROCK ZACHARY CPT code 35839 Reason For Exam (CR Chest 1 View [...] 12-21-2020 Karth[facility], [facility] Incoming Radiology Results From [facility] - 12/21/2020 8:34 AM EDT Patient Name: DEONTE BLANCO Diagnostic Radiology ACCESSION EXAM DATE/TIME PROCEDURE ORDERING PROVIDER [id number] 12/21/2020 06:06 EDT CR Spine Lumbosacral 2 MD ROCK ZACHARY or 3 Views CPT code 43261 Reason For Exam (CR Spine Lumbosacral 2 or 3 Views) pre-surgery films Report Examination: Lumbar spine 3 views Indication: pre-surgery films Findings: The vertebral bodies are in gross anatomic alignment. No acute fracture is demonstrated. Aysa-xu-pqztlaam levocurvature is noted. There are at least moderate degenerative facet changes of the lower lumbar spine. There is at least moderate degenerative disc disease at T12/L1 and L1/L2. Uxof-ae-scjgvwlb calcification of the abdominal aorta is noted. Multiple rounded surgical coils overlie the mid abdomen most suggestive of prior herniorrhaphy. Impression: No acute osseous abnormality. Report Dictated on --- Final --- Dictated: 12/21/2020 8:31 am Dictating Physician: MD FLEMING KRIKOR Signed Date and Time: 12/21/2020 8:33 am Signed by: MD FLEMING KRIKOR Transcribed Date and Time: 12/21/2020 8:31 [facility] Work Phone: Patient Name: DEONTE BLANCO Diagnostic Radiology ACCESSION EXAM DATE/TIME PROCEDURE ORDERING PROVIDER [id number] 12/21/2020 06:06 EDT CR Spine Lumbosacral 2 MD ROCK ZACHARY or 3 Views CPT code 92027 Reason For Exam (CR Spine Lumbosacral 2 or 3 Views) pre-surgery films Report Examination: Lumbar spine 3 views Indication: pre-surgery films Findings: The vertebral bodies are in gross anatomic alignment. No acute fracture is demonstrated. Dvgo-gi-pelseokd levocurvature is noted. There are at least moderate degenerative facet changes of the lower lumbar spine. There is at least moderate degenerative disc disease at T12/L1 and L1/L2. Cixe-mo-mxnpvnoi calcification of the abdominal aorta is noted. [...] Time Vital Sign Value Performing Clinician Facility 04-18-2025 08:27-0400 Body mass index (BMI) [Ratio] 35.65 kg/m2 Liliana Bennett [employer] Work Phone: [facility] 04-18-2025 08:27-0400 Body weight 83.46 kg Liliana Bennett [employer] Work Phone: [facility] 04-18-2025 08:27-0400 Diastolic blood pressure 70 mm[Hg] Liliana Bennett [employer] Work Phone: [facility] 04-18-2025 08:27-0400 Heart rate 76 /min Liliana Bennett [employer] Work Phone: [facility] 04-18-2025 08:27-0400 SaO2% (BldA) [Mass fraction] 96 % Liliana Bennett [employer] Work Phone: [facility] 04-18-2025 08:27-0400 Systolic blood pressure 120 mm[Hg] Liliana Bennett [employer] Work Phone: [facility] 04-15-2025 19:29-0400 Body temperature 98.6 [degF] Dr. Preet Farrar DO Work Phone: [facility] 04-15-2025 19:29-0400 Diastolic blood pressure 79 mm[Hg] Dr. Preet Farrar DO Work Phone: [facility] 04-15-2025 19:29-0400 Heart rate 91 /min Dr. Preet Farrar DO Work Phone: [facility] 04-15-2025 19:29-0400 Respiratory rate 16 /min Dr. Preet Farrar DO Work Phone: [facility] 04-15-2025 19:29-0400 SaO2% (BldA) [Mass fraction] 97 % Dr. Preet Farrar DO Work Phone: [facility] 04-15-2025 19:29-0400 Systolic blood pressure 103 mm[Hg] Dr. Preet Farrar DO Work Phone: [facility] 04-15-2025 13:11-0400 Body height 152.[address] Preet Farrar DO Work Phone: [facility] 04-15-2025 13:11-0400 Body mass index (BMI) [Ratio] 35.2 kg/m2 Dr. Preet Farrar DO Work Phone: [facility] 04-15-2025 13:11-0400 Body weight 81.[address] Preet Farrar DO Work Phone: [facility] 03-22-2025 13:46-0400 Body mass index (BMI) [Ratio] 36 kg/m2 Liliana Rios [employer] Work Phone: [facility] 03-22-2025 13:46-0400 Body weight 84.28 kg Liliana Rios [employer] Work Phone: [facility] 03-22-2025 13:46-0400 Diastolic blood pressure 70 mm[Hg] Liliana Rios [employer] Work Phone: [facility] 03-22-2025 13:46-0400 Heart rate 78 /min Liliana Rios [employer] Work Phone: [facility] 03-22-2025 13:46-0400 SaO2% (BldA) [Mass fraction] 98 % Liliana Rios [employer] Work Phone: [facility] 03-22-2025 13:46-0400 Systolic blood pressure 140 mm[Hg] Liliana Rios [employer] Work Phone: [facility] 02-09-2025 10:03-0400 Body mass index (BMI) [Ratio] 36.39 kg/m2 Bean Isaac MD Work Phone: [facility] 02-09-2025 10:03-0400 Body weight 85.19 kg Bean Isaac MD Work Phone: [facility] 02-09-2025 10:03-0400 Diastolic blood pressure 78 mm[Hg] Bean Isaac MD Work Phone: [facility] 02-09-2025 10:03-0400 Heart rate 84 /min Bean Isaac MD Work Phone: [facility] 02-09-2025 10:03-0400 SaO2% (BldA) [Mass fraction] 95 % Bean Isaac MD Work Phone: [facility] 02-09-2025 10:03-0400 Systolic blood pressure 122 mm[Hg] Bean Isaac MD Work Phone: [facility] 02-06-2025 10:53-0400 Body height 152.[address] Preet Farrar DO Work Phone: [phone])[phone] [place] [address] 02-06-2025 10:53-0400 Body mass index (BMI) [Ratio] 36.6 kg/m2 Dr. Preet Farrar DO Work Phone: 0(512)097-521397 [place] [address] 02-06-2025 10:53-0400 Body weight 84.[address] Preet Farrar DO Work Phone: 9(003)035-987697 [place] [address] 02-06-2025 10:53-0400 Diastolic blood pressure 60 mm[Hg] Dr. Preet Farrar DO Work Phone: 0(856)830-883597 [place] [address] 02-06-2025 10:53-0400 Systolic blood pressure 136 mm[Hg] Dr. Preet Farrar DO Work Phone: 5(918)623-221497 [place] [address] 01-26-2025 08:18-0400 Body mass index (BMI) [Ratio] 36.1 kg/m2 Dr. Preet Farrar DO Work Phone: 1(930)800-820797 [place] [address] 01-26-2025 08:18-0400 Body weight 83.[address] Preet Farrar DO Work Phone: 4(489)581-786597 [place] [address] 01-26-2025 08:18-0400 Diastolic blood pressure 82 mm[Hg] Dr. Preet Farrar DO Work Phone: 1(094)089-584997 [place] [address] 01-26-2025 08:18-0400 Heart rate 82 /min Dr. Preet Farrar DO Work Phone: 2(558)402-281297 [place] [address] 01-26-2025 08:18-0400 Respiratory rate 18 /min Dr. Preet Farrar DO Work Phone: 1(562)413-201999 [place] [address] 01-26-2025 08:18-0400 Systolic blood pressure 144 mm[Hg] Dr. Preet Farrar DO Work Phone: 5(923)369-162399 [place] [address] 01-09-2025 11:11-0400 Body mass index (BMI) [Ratio] 36.1 kg/m2 Dr. Preet Farrar DO Work Phone: 8(126)856-423199 [place] [address] 01-09-2025 11:11-0400 Body weight 84.[address] Preet Farrar DO Work Phone: 1(898)346-032599 [place] [address] 01-09-2025 11:11-0400 Diastolic blood pressure 87 mm[Hg] Dr. Preet Farrar DO Work Phone: 0(135)923-261199 [place] [address] 01-09-2025 11:11-0400 Systolic blood pressure 145 mm[Hg] Dr. Preet Farrar DO Work Phone: 2(322)028-734499 [place] [address] 12-28-2024 14:12-0400 Body temperature 98.5 [degF] Dr. Preet Farrar DO Work Phone: 6(504)637-172099 [place] [address] 12-28-2024 14:12-0400 Diastolic blood pressure 68 mm[Hg] Dr. Preet Farrar DO Work Phone: 5(680)165-525599 [place] [address] 12-28-2024 14:12-0400 Heart rate 66 /min Dr. Preet Farrar DO Work Phone: [phone] [place] [address] 12-28-2024 14:12-0400 Respiratory rate 16 /min Dr. Preet Farrar DO Work Phone: [phone] [place] [address] 12-28-2024 14:12-0400 SaO2% (BldA) [Mass fraction] 93 % Dr. Preet Farrar DO Work Phone: [phone] [place] [address] 12-28-2024 14:12-0400 Systolic blood pressure 159 mm[Hg] Dr. Preet Farrar DO Work Phone: [facility] 12-27-2024 20:10-0400 Inhaled oxygen concentration 99 % Dr. Preet Farrar DO Work Phone: [facility] 12-27-2024 20:10-0400 Inhaled oxygen flow rate 2 L/min Dr. Preet Farrra DO Work Phone: [facility] 12-27-2024 18:19-0400 Body height 152.[address] Preet Farrar DO Work Phone: [facility] 12-27-2024 18:19-0400 Body mass index (BMI) [Ratio] 36.4 kg/m2 Dr. Preet Farrar DO Work Phone: [facility] 12-27-2024 18:19-0400 Body weight 84.[address] Preet Farrar DO Work Phone: [facility] 12-14-2024 11:02-0400 Body height 153 cm Preet Farrar DO Work Phone: [facility] 12-14-2024 11:02-0400 Body mass index (BMI) [Ratio] 36.04 kg/m2 Preet Farrar DO Work Phone: [facility] 12-14-2024 11:02-0400 Body temperature 97 [degF] Preet Farrar DO Work Phone: [facility] 12-14-2024 11:02-0400 Body weight 84.37 kg Preet Farrar DO Work Phone: [facility] 12-14-2024 11:02-0400 Diastolic blood pressure 70 mm[Hg] Preet Farrar DO Work Phone: [facility] 12-14-2024 11:02-0400 Heart rate 64 /min Preet Dumontrison DO Work Phone: [facility] 12-14-2024 11:02-0400 Respiratory rate 16 /min Preet Farrar DO Work Phone: [facility] 12-14-2024 11:02-0400 Systolic blood pressure 136 mm[Hg] Preet Farrar DO Work Phone: [facility] 12-12-2024 10:53-0400 Body mass index (BMI) [Ratio] 36.7 kg/m2 Dr. Preet Farrar DO Work Phone: [facility] 12-12-2024 10:53-0400 Body weight 85.[address] Preet Farrar DO Work Phone: [facility] 12-12-2024 10:53-0400 Diastolic blood pressure 59 mm[Hg] Dr. Preet Farrar DO Work Phone: [facility] 12-12-2024 10:53-0400 Systolic blood pressure 152 mm[Hg] Dr. Preet Farrar DO Work Phone: [facility] 11-11-2024 09:46-0500 Body mass index (BMI) [Ratio] 33.98 kg/m2 Bean Isaac MD Work Phone: [facility] 11-11-2024 09:46-0500 Body temperature 97.11 [degF] Bean Isaac MD Work Phone: [facility] 11-11-2024 09:46-0500 Body weight 81.65 kg Bean Isaac MD Work Phone: [facility] 11-11-2024 09:46-0500 Diastolic blood pressure 74 mm[Hg] Bean Isaac MD Work Phone: [facility] 11-11-2024 09:46-0500 Heart rate 89 /min Bean Isaac MD Work Phone: [facility] 11-11-2024 09:46-0500 SaO2% (BldA) [Mass fraction] 97 % Bean Isaac MD Work Phone: [facility] 11-11-2024 09:46-0500 Systolic blood pressure 124 mm[Hg] Bean Bendaram MD Work Phone: [facility] 10-07-2024 10:58-0500 Body height 155 cm Preet Farrar DO Work Phone: [facility] 10-07-2024 10:58-0500 Body mass index (BMI) [Ratio] 34.38 kg/m2 Preet Farrar DO Work Phone: [facility] 10-07-2024 10:58-0500 Body temperature 97 [degF] Preet Farrar DO Work Phone: [facility] 10-07-2024 10:58-0500 Body weight 82.6 kg Preet Farrar DO Work Phone: [facility] 10-07-2024 10:58-0500 Diastolic blood pressure 60 mm[Hg] Preet Dumontrison DO Work Phone: [facility] 10-07-2024 10:58-0500 Heart rate 64 /min Preet Farrar DO Work Phone: [facility] 10-07-2024 10:58-0500 Respiratory rate 20 /min Preet Farrar DO Work Phone: [facility] 10-07-2024 10:58-0500 Systolic blood pressure 116 mm[Hg] Preet Farrar DO Work Phone: [facility] 09-13-2024 13:58-0500 Body mass index (BMI) [Ratio] 35.3 kg/m2 Dr. Preet Farrar DO Work Phone: [facility] 09-13-2024 13:58-0500 Body weight 82.[address] Preet Farrar DO Work Phone: [facility] 09-13-2024 13:58-0500 Diastolic blood pressure 69 mm[Hg] Dr. Preet Farrar DO Work Phone: [facility] 09-13-2024 13:58-0500 Heart rate 69 /min Dr. Preet Farrar DO Work Phone: [facility] 09-13-2024 13:58-0500 Respiratory rate 18 /min Dr. Preet Farrar DO Work Phone: [facility] 09-13-2024 13:58-0500 SaO2% (BldA) [Mass fraction] 96 % Dr. Preet Farrar DO Work Phone: [facility] 09-13-2024 13:58-0500 Systolic blood pressure 153 mm[Hg] Dr. Preet Farrar DO Work Phone: [facility] 08-11-2024 09:47-0500 Body mass index (BMI) [Ratio] 35.58 kg/m2 Bean Isaac MD Work Phone: [facility] 08-11-2024 09:47-0500 Body temperature 98.2 [degF] Bean Isaac MD Work Phone: [facility] 08-11-2024 09:47-0500 Body weight 82.64 kg Bean Isaac MD Work Phone: [facility] 08-11-2024 09:47-0500 Diastolic blood pressure 67 mm[Hg] Bean Isaac MD Work Phone: [facility] 08-11-2024 09:47-0500 Heart rate 69 /min Bean Isaac MD Work Phone: [facility] 08-11-2024 09:47-0500 SaO2% (BldA) [Mass fraction] 97 % Bean Isaac MD Work Phone: [facility] 08-11-2024 09:47-0500 Systolic blood pressure 150 mm[Hg] Bean Isaac MD Work Phone: [facility] 06-14-2024 14:18-0400 Body mass index (BMI) [Ratio] 33.58 kg/m2 Preet Farrar DO Work Phone: [facility] 06-14-2024 14:18-0400 Body temperature 98.01 [degF] Preet Farrar DO Work Phone: [facility] 06-14-2024 14:18-0400 Body weight 78 kg Preet Farrar DO Work Phone: [facility] 06-14-2024 14:18-0400 Diastolic blood pressure 70 mm[Hg] Preet Farrar DO Work Phone: [facility] 06-14-2024 14:18-0400 Heart rate 76 /min Preet Farrar DO Work Phone: [facility] 06-14-2024 14:18-0400 Respiratory rate 16 /min Preet Farrar DO Work Phone: [facility] 06-14-2024 14:18-0400 Systolic blood pressure 136 mm[Hg] Preet Farrar DO Work Phone: [facility] 05-25-2024 14:32-0400 Body mass index (BMI) [Ratio] 32.89 kg/m2 Catalina Podlogar [employer] Work Phone: [facility] 05-25-2024 14:32-0400 Body weight 76.4 kg Catalina Podlogar [employer] Work Phone: [facility] 05-25-2024 14:32-0400 Diastolic blood pressure 72 mm[Hg] Catalina Podlogar [employer] Work Phone: [facility] 05-25-2024 14:32-0400 Heart rate 80 /min Catalina Podlogar [employer] Work Phone: [facility] 05-25-2024 14:32-0400 Respiratory rate 18 /min Catalina Podlogar [employer] Work Phone: [facility] 05-25-2024 14:32-0400 SaO2% (BldA) [Mass fraction] 93 % Catalina Podlogar [employer] Work Phone: [facility] 05-25-2024 14:32-0400 Systolic blood pressure 106 mm[Hg] Catalina Podlogar [employer] Work Phone: [facility] 05-10-2024 13:29-0400 Body height 152.4 cm Bean Isaac MD Work Phone: [facility] 05-10-2024 13:29-0400 Body mass index (BMI) [Ratio] 33.55 kg/m2 Bean Isaac MD Work Phone: [facility] 05-10-2024 13:29-0400 Body weight 77.93 kg Bean Isaac MD Work Phone: [facility] 05-10-2024 13:29-0400 Diastolic blood pressure 78 mm[Hg] Bean Isaac MD Work Phone: [facility] 05-10-2024 13:29-0400 Heart rate 76 /min Bean Isaac MD Work Phone: [facility] 05-10-2024 13:29-0400 Respiratory rate 18 /min Bean Isaac MD Work Phone: [facility] 05-10-2024 13:29-0400 SaO2% (BldA) [Mass fraction] 97 % Bean Isaac MD Work Phone: [facility] 05-10-2024 13:29-0400 Systolic blood pressure 138 mm[Hg] Bean Isaac MD Work Phone: [facility] 03-21-2024 10:23-0400 Body mass index (BMI) [Ratio] 31.83 kg/m2 Preet Farrar DO Work Phone: [facility] 03-21-2024 10:23-0400 Body temperature 96.69 [degF] Preet Farrar DO Work Phone: [facility] 03-21-2024 10:23-0400 Body weight 73.94 kg Preet Farrar DO Work Phone: [facility] 03-21-2024 10:23-0400 Diastolic blood pressure 80 mm[Hg] Preet Farrar DO Work Phone: [facility] 03-21-2024 10:23-0400 Heart rate 64 /min Preet Farrar DO Work Phone: [facility] 03-21-2024 10:23-0400 Respiratory rate 16 /min Preet Farrar DO Work Phone: [facility] 03-21-2024 10:23-0400 Systolic blood pressure 136 mm[Hg] Preet Farrar DO Work Phone: [facility] 01-27-2024 10:55-0400 Body mass index (BMI) [Ratio] 32.15 kg/m2 Jacqueline Candelario [employer] Work Phone: [facility] 01-27-2024 10:55-0400 Body weight 74.67 kg Jacqueline Candelario [employer] Work Phone: [facility] 01-27-2024 10:55-0400 Diastolic blood pressure 68 mm[Hg] Jacqueline Candelario [employer] Work Phone: [facility] 01-27-2024 10:55-0400 Heart rate 64 /min Jacqueline Candelario [employer] Work Phone: [facility] 01-27-2024 10:55-0400 Respiratory rate 16 /min Jacqueline Candelario [employer] Work Phone: [facility] 01-27-2024 10:55-0400 Systolic blood pressure 124 mm[Hg] Jacqueline Candelario [employer] Work Phone: [facility] 01-06-2024 11:06-0400 Body weight 74.39 kg Jacqueline Candelario [employer] Work Phone: [facility] 01-06-2024 11:06-0400 Diastolic blood pressure 64 mm[Hg] Jacqueline Candelario [employer] Work Phone: [facility] 01-06-2024 11:06-0400 Heart rate 62 /min Jacqueline Candelario [employer] Work Phone: [facility] 01-06-2024 11:06-0400 Respiratory rate 16 /min Jacqueline Candelario [employer] Work Phone: [facility] 01-06-2024 11:06-0400 Systolic blood pressure 130 mm[Hg] Jacqueline Candelario [employer] Work Phone: [facility] 01-02-2024 12:34-0400 Body temperature 97.39 [degF] Jemima Iyer [employer] Work Phone: [facility] 01-02-2024 12:34-0400 Body weight 74.1 kg Jemima Iyer [employer] Work Phone: [facility] 01-02-2024 12:34-0400 Diastolic blood pressure 82 mm[Hg] Jemima Iyer [employer] Work Phone: [facility] 01-02-2024 12:34-0400 Heart rate 80 /min Jemima Iyer [employer] Work Phone: [facility] 01-02-2024 12:34-0400 Respiratory rate 16 /min Jemima Iyer [employer] Work Phone: [facility] 01-02-2024 12:34-0400 SaO2% (BldA) [Mass fraction] 98 % Jemima Iyer [employer] Work Phone: [facility] 01-02-2024 12:34-0400 Systolic blood pressure 132 mm[Hg] Jemima Iyer [employer] Work Phone: [facility] 12-09-2023 17:34-0400 Body temperature 97.39 [degF] Preet Farrar DO Work Phone: [facility] 12-09-2023 17:34-0400 Body weight 74.39 kg Preet Farrar DO Work Phone: [facility] 12-09-2023 17:34-0400 Diastolic blood pressure 80 mm[Hg] Preet Farrar DO Work Phone: [facility] 12-09-2023 17:34-0400 Heart rate 80 /min Preet Farrar DO Work Phone: [facility] 12-09-2023 17:34-0400 Respiratory rate 12 /min Preet Farrar DO Work Phone: [facility] 12-09-2023 17:34-0400 Systolic blood pressure 130 mm[Hg] Preet Farrar DO Work Phone: [facility] 11-25-2023 02:49-0500 Blood Pressure Cuff Size ELOISA LEVIN MD [facility] 11-25-2023 02:49-0500 Blood Pressure Location ELOISA LEVIN MD [facility] 11-25-2023 02:49-0500 Blood Pressure Method ELOISA LEVIN MD [facility] 11-25-2023 02:49-0500 Diastolic Blood Pressure Non-Invasive 80 mm[Hg] ELOISA LEVIN MD [facility] 11-25-2023 02:49-0500 Systolic Blood Pressure Non-Invasive 164 mm[Hg] ELOISA LEVIN MD [facility] 11-25-2023 00:35-0500 Diastolic Blood Pressure Non-Invasive 83 mm[Hg] ELOISA LEVIN MD [facility] 11-25-2023 00:35-0500 Heart rate 79 /min ELOISA LEVIN MD [facility] 11-25-2023 00:35-0500 Respiratory rate 18 /min ELOISA LEVIN MD [facility] 11-25-2023 00:35-0500 Systolic Blood Pressure Non-Invasive 177 mm[Hg] ELOISA LEVIN MD [facility] 11-24-2023 22:22-0500 Diastolic Blood Pressure Non-Invasive 81 mm[Hg] ELOISA LEVIN MD [facility] 11-24-2023 22:22-0500 Heart rate 72 /min ELOISA LEVIN MD [facility] 11-24-2023 22:22-0500 Respiratory rate 20 /min ELOISA LEVIN MD [facility] 11-24-2023 22:22-0500 Systolic Blood Pressure Non-Invasive 147 mm[Hg] ELOISA LEVIN MD [facility] 11-24-2023 18:48-0500 Body temperature 98.06 [degF] ELOISA LEVIN MD [facility] 11-24-2023 18:48-0500 Body weight 76.7 kg ELOISA LEVIN MD [facility] 11-24-2023 18:48-0500 Heart rate 80 /min ELOISA LEVIN MD [facility] 11-24-2023 18:48-0500 Respiratory rate 20 /min ELOISA LEVIN MD [facility] 11-19-2023 09:24-0500 Body weight 76.2 kg Jacqueline Candelario [employer] Work Phone: [facility] 11-19-2023 09:24-0500 Diastolic blood pressure 60 mm[Hg] Jacqueline Candelario [employer] Work Phone: [facility] 11-19-2023 09:24-0500 Heart rate 64 /min Jacqueline Candelario [employer] Work Phone: [facility] 11-19-2023 09:24-0500 Respiratory rate 12 /min Jacqueline Candelario [employer] Work Phone: [facility] 11-19-2023 09:24-0500 Systolic blood pressure 100 mm[Hg] Jacqueline Candelario [employer] Work Phone: [facility] 11-13-2023 08:57-0500 Body weight 76.2 kg Jacqueline Candelario [employer] Work Phone: [facility] 11-13-2023 08:57-0500 Diastolic blood pressure 70 mm[Hg] Jacqueline Candelario [employer] Work Phone: [facility] 11-13-2023 08:57-0500 Heart rate 64 /min Jacqueline Candelario [employer] Work Phone: [facility] 11-13-2023 08:57-0500 Respiratory rate 16 /min Jacqueline Candelario [employer] Work Phone: [facility] 11-13-2023 08:57-0500 Systolic blood pressure 160 mm[Hg] Jacqueline Candelario [employer] Work Phone: [facility] 10-29-2023 09:13-0500 Body weight 75.75 kg Jacqueline Candelario [employer] Work Phone: [facility] 10-29-2023 09:13-0500 Diastolic blood pressure 62 mm[Hg] Jacqueline Candelario [employer] Work Phone: [facility] 10-29-2023 09:13-0500 Heart rate 64 /min Jacqueline Candelario [employer] Work Phone: [facility] 10-29-2023 09:13-0500 Respiratory rate 14 /min Jacqueline Candelario [employer] Work Phone: [facility] 10-29-2023 09:13-0500 Systolic blood pressure 150 mm[Hg] Jacqueline Candelario [employer] Work Phone: [facility] 07-27-2023 10:58-0400 Body height 152.[address] Preet Farrra Work Phone: [facility] 07-27-2023 10:58-0400 Body temperature 98 [degF] Dr. Preet Farrar Work Phone: [facility] 07-27-2023 10:58-0400 Diastolic blood pressure 80 mm[Hg] Dr. Preet Farrar Work Phone: [facility] 07-27-2023 10:58-0400 Heart rate 88 /min Dr. Preet Farrar Work Phone: [facility] 07-27-2023 10:58-0400 Respiratory rate 15 /min Dr. Preet Farrar Work Phone: [facility] 07-27-2023 10:58-0400 SaO2% (BldA) [Mass fraction] 98 % Dr. Preet Farrar Work Phone: [facility] 07-27-2023 10:58-0400 Systolic blood pressure 129 mm[Hg] Dr. Preet Farrar Work Phone: [facility] 07-15-2023 10:01-0400 Body weight 72.85 kg Kathryn Martir [employer] Work Phone: [facility] 07-15-2023 10:01-0400 Diastolic blood pressure 74 mm[Hg] Kathryn Martir [employer] Work Phone: [facility] 07-15-2023 10:01-0400 Heart rate 84 /min Kathryn Martir [employer] Work Phone: [facility] 07-15-2023 10:01-0400 Respiratory rate 16 /min Kathryn Martir [employer] Work Phone: [facility] 07-15-2023 10:01-0400 SaO2% (BldA) [Mass fraction] 98 % Kathryn Martir [employer] Work Phone: [facility] 07-15-2023 10:01-0400 Systolic blood pressure 126 mm[Hg] Kathryn Martir [employer] Work Phone: [facility] 07-03-2023 08:40-0400 Body temperature 97.9 [degF] Dr. Preet Farrar Work Phone: [facility] 07-03-2023 08:40-0400 Diastolic blood pressure 55 mm[Hg] Dr. Preet Farrar Work Phone: [facility] 07-03-2023 08:40-0400 Heart rate 69 /min Dr. Preet Farrar Work Phone: [facility] 07-03-2023 08:40-0400 Respiratory rate 16 /min Dr. Preet Farrar Work Phone: [facility] 07-03-2023 08:40-0400 SaO2% (BldA) [Mass fraction] 97 % Dr. Preet Farrar Work Phone: [facility] 07-03-2023 08:40-0400 Systolic blood pressure 139 mm[Hg] Dr. Preet Farrar Work Phone: 7(929)[phone] [place] [address] 07-03-2023 05:54-0400 Body mass index (BMI) [Ratio] 30.7 kg/m2 Dr. Preet Farrar Work Phone: 4(101)[phone] [place] [address] 07-03-2023 05:54-0400 Body weight 71.[address] Preet Farrar Work Phone: [facility] 06-26-2023 09:04-0400 Body weight 71.31 kg Jacqueline Candelario [employer] Work Phone: [facility] 06-26-2023 09:04-0400 Diastolic blood pressure 60 mm[Hg] Jacqueline Candelario [employer] Work Phone: [facility] 06-26-2023 09:04-0400 Heart rate 100 /min Jacqueline Candelario [employer] Work Phone: [facility] 06-26-2023 09:04-0400 Respiratory rate 14 /min Jacqueline Candelario [employer] Work Phone: [facility] 06-26-2023 09:04-0400 Systolic blood pressure 122 mm[Hg] Jacqueline Candelario [employer] Work Phone: [facility] 06-19-2023 10:41-0400 Body weight 74.39 kg Kathryn Rivero [employer] Work Phone: [facility] 06-19-2023 10:41-0400 Diastolic blood pressure 68 mm[Hg] Kathryn Martir [employer] Work Phone: [facility] 06-19-2023 10:41-0400 Heart rate 73 /min Kathryn Martir [employer] Work Phone: [facility] 06-19-2023 10:41-0400 Respiratory rate 16 /min Kathryn Martir [employer] Work Phone: [facility] 06-19-2023 10:41-0400 SaO2% (BldA) [Mass fraction] 97 % Kathryn Martir [employer] Work Phone: [facility] 06-19-2023 10:41-0400 Systolic blood pressure 118 mm[Hg] Kathryn Martir [employer] Work Phone: [facility] 04-30-2023 08:37-0400 Body weight 75.03 kg Jacqueline Candelario [employer] Work Phone: [facility] 04-30-2023 08:37-0400 Diastolic blood pressure 82 mm[Hg] Jacqueline Candelario [employer] Work Phone: [facility] 04-30-2023 08:37-0400 Heart rate 60 /min Jacqueline Candelario [employer] Work Phone: [facility] 04-30-2023 08:37-0400 Respiratory rate 16 /min Jacqueline Candelario [employer] Work Phone: [facility] 04-30-2023 08:37-0400 Systolic blood pressure 132 mm[Hg] Jacqueline Candelario [employer] Work Phone: [facility] 03-18-2023 10:27-0400 Body temperature 97.5 [degF] Preet Farrar DO Work Phone: [facility] 03-18-2023 10:27-0400 Body weight 76.66 kg Preet Farrar DO Work Phone: [facility] 03-18-2023 10:27-0400 Diastolic blood pressure 80 mm[Hg] Preet Farrar DO Work Phone: [facility] 03-18-2023 10:27-0400 Heart rate 80 /min Preet Farrar DO Work Phone: [facility] 03-18-2023 10:27-0400 Respiratory rate 16 /min Preet Farrar DO Work Phone: [facility] 03-18-2023 10:27-0400 Systolic blood pressure 130 mm[Hg] Preet Farrar DO Work Phone: 4(253)277-504656 [place] [address] 03-16-2023 09:56-0400 Body height 152.[address] Preet Farrar Work Phone: 1(819)158-802499 [place] [address] 03-16-2023 09:56-0400 Body mass index (BMI) [Ratio] 32.9 kg/m2 Dr. Preet Farrar Work Phone: 9(411)984-846099 [place] [address] 03-16-2023 09:56-0400 Body temperature 98.2 [degF] Dr. Preet Farrar Work Phone: 7(448)350-701299 [place] [address] 03-16-2023 09:56-0400 Body weight 76.[address] Preet Farrar Work Phone: 1(634)928-914299 [place] [address] 03-16-2023 09:56-0400 Diastolic blood pressure 70 mm[Hg] Dr. Preet Farrar Work Phone: 9(702)915-216499 [place] [address] 03-16-2023 09:56-0400 Heart rate 78 /min Dr. Preet Fararr Work Phone: 5(626)902-863097 [place] [address] 03-16-2023 09:56-0400 Respiratory rate 17 /min Dr. Preet Farrar Work Phone: 4(155)268-785499 [place] [address] 03-16-2023 09:56-0400 SaO2% (BldA) [Mass fraction] 96 % Dr. Preet Farrar Work Phone: 6(640)923-625799 [place] [address] 03-16-2023 09:56-0400 Systolic blood pressure 136 mm[Hg] Dr. Preet Farrar Work Phone: [facility] 12-10-2022 09:04-0400 Body temperature 97 [degF] Preet Farrar DO Work Phone: [facility] 12-10-2022 09:04-0400 Body weight 79.83 kg Preet Farrar DO Work Phone: [facility] 12-10-2022 09:04-0400 Diastolic blood pressure 80 mm[Hg] Preet Farrar DO Work Phone: [facility] 12-10-2022 09:04-0400 Heart rate 68 /min Preet Farrar DO Work Phone: [facility] 12-10-2022 09:04-0400 Respiratory rate 16 /min Preet Farrar DO Work Phone: [facility] 12-10-2022 09:04-0400 Systolic blood pressure 138 mm[Hg] Preet Farrar DO Work Phone: [facility] 11-05-2022 11:17-0500 Body weight 79.56 kg Jacqueline Candelario [employer] Work Phone: [facility] 11-05-2022 11:17-0500 Diastolic blood pressure 62 mm[Hg] Jacqueline Candelario [employer] Work Phone: [facility] 11-05-2022 11:17-0500 Heart rate 72 /min Jacqueline Candelario [employer] Work Phone: [facility] 11-05-2022 11:17-0500 Respiratory rate 16 /min Jacqueline Candelario [employer]ER Work Phone: [facility] 11-05-2022 11:17-0500 Systolic blood pressure 110 mm[Hg] Jacqueline Candelario [employer]ER Work Phone: [facility] 11-04-2022 12:18-0500 Body mass index (BMI) [Ratio] 34.7 kg/m2 Dr. Preet Farrar Work Phone: [facility] 11-04-2022 12:16-0500 Body temperature 98.4 [degF] Dr. Preet aFrrar Work Phone: [facility] 11-04-2022 12:16-0500 Diastolic blood pressure 61 mm[Hg] Dr. Preet Farrar Work Phone: [facility] 11-04-2022 12:16-0500 Heart rate 63 /min Dr. Preet Farrar Work Phone: 1(468)035-172799 [place] [address] 11-04-2022 12:16-0500 Respiratory rate 15 /min Dr. Preet Farrar Work Phone: 0(121)757-684699 [place] [address] 11-04-2022 12:16-0500 SaO2% (BldA) [Mass fraction] 95 % Dr. Preet Farrar Work Phone: 0(171)507-631799 [place] [address] 11-04-2022 12:16-0500 Systolic blood pressure 123 mm[Hg] Dr. Preet Farrar Work Phone: 3(009)412-696899 [place] [address] 11-02-2022 17:26-0500 Body height 152.[address] Preet Farrar Work Phone: 1(988)948-971299 [place] [address] 11-02-2022 17:26-0500 Body weight 80.[address] Preet Farrar Work Phone: [facility] 02-19-2022 11:46-0400 Diastolic blood pressure 80 mm[Hg] Preet Farrar DO Work Phone: [facility] 02-19-2022 11:46-0400 Systolic blood pressure 160 mm[Hg] Preet Farrar DO Work Phone: [facility] 02-19-2022 11:20-0400 Body temperature 97.39 [degF] Preet Farrar DO Work Phone: [facility] 02-19-2022 11:20-0400 Heart rate 64 /min Preet Farrar DO Work Phone: [facility] 02-19-2022 11:20-0400 Respiratory rate 16 /min Preet Farrar DO Work Phone: [facility] 01-31-2022 11:15-0400 Diastolic blood pressure 84 mm[Hg] Kathryn Martir [employer] Work Phone: [facility] 01-31-2022 11:15-0400 Heart rate 66 /min Kathryn Valeroman [employer]ER Work Phone: [facility] 01-31-2022 11:15-0400 Respiratory rate 16 /min Kathryn Valeroman [employer]ER Work Phone: [facility] 01-31-2022 11:15-0400 Systolic blood pressure 156 mm[Hg] Kathryn Valeroman [employer]ER Work Phone: [facility] 01-23-2022 16:37-0400 Body temperature 97.9 [degF] Nataly Ryan APRN.BILLBOARD POSTER Work Phone: [facility] 01-23-2022 16:37-0400 Diastolic blood pressure 96 mm[Hg] Nataly Ryan APRN.BILLBOARD POSTER Work Phone: [facility] 01-23-2022 16:37-0400 Heart rate 79 /min Nataly Ryan APRN.BILLBOARD POSTER Work Phone: [facility] 01-23-2022 16:37-0400 Respiratory rate 18 /min Nataly Ryan APRN.BILLBOARD POSTER Work Phone: [facility] 01-23-2022 16:37-0400 SaO2% (BldA) [Mass fraction] 98 % Nataly Ryan APRN.BILLBOARD POSTER Work Phone: [facility] 01-23-2022 16:37-0400 Systolic blood pressure 182 mm[Hg] Nataly Ryan APRN.BILLBOARD POSTER Work Phone: [facility] 12-28-2020 10:47-0400 Body Temperature 96.69 [degF] Mhd Almoselli [facility] Work Phone: 12-28-2020 10:47-0400 BP Diastolic 73 mm[Hg] Mhd Almoselli [facility] Work Phone: 12-28-2020 10:47-0400 BP Systolic 124 mm[Hg] d Lyric [facility] Work Phone: 12-28-2020 10:47-0400 Pulse (Heart Rate) 89 /min Marciad Sophieli JAZMINA Work Phone: 12-28-2020 10:47-0400 Pulse Oximetry 97 % d Sophieli JAZMINA Work Phone: 12-28-2020 10:47-0400 Respiratory Rate 18 /min d Sophieli JAZMINA Work Phone: 12-21-2020 04:30-0400 BMI (Body Mass Index) 35.15 kg/m2 d Sophieli JAZMINA Work Phone: 12-21-2020 04:30-0400 Body weight 81.65 kg d Lyric [facility] Work Phone: 12-21-2020 04:30-0400 Height 152.4 cm d Lyric [facility] Work Phone: Encounters Encounter Date Encounter Type Care Provider Facility Start: 05-23-2025 End: 05-23-2025 ambulatory PREET L FARRAR Facility:[facility] Start: 05-15-2025 End: 05-15-2025 Refill Preet L Farrar DO Work Phone: [facility] [place] Comment on above: Refill Request; Lab Orders Start: 04-28-2025 End: 04-28-2025 ambulatory PREET L FARRAR Facility:[facility] Start: 04-19-2025 End: 04-19-2025 Refill Preet L Farrar DO Work Phone: [facility] Comment on above: Refill Request Start: 04-18-2025 End: 04-27-2025 Follow-up encounter Liliana Bennett APRN.BILLBOARD POSTER Work Phone: [facility] Start: 04-18-2025 End: 04-18-2025 ambulatory PREET L FARRAR Facility:[facility] Start: 04-18-2025 End: 04-18-2025 Office outpatient visit 40 minutes Liliana Bennett APRN.BILLBOARD POSTER Work Phone: [facility] [place] Comment on above: Type 2 diabetes belinda itus with hyperosmolarity without coma, with long-term current use of insulin (HCC) (Primary Dx); Uncontrolled type 2 diabetes mellitus with hyperglycemia (HCC); Encounter for diabetes education; Situational anxiety; Obesity, Class II, BMI 35-39.9; Essential hypertension, benign Start: 04-18-2025 End: 04-18-2025 ambulatory SELF Facility:[facility] Start: 04-17-2025 End: 04-17-2025 Telephone encounter Preet Farrar DO Work Phone: [facility] [place] Comment on above: Patient Update Start: 04-16-2025 End: 04-16-2025 ambulatory Darline Ng RN NURSE FIXED INCOME DIRECTOR Comment on above: High Blood Sugar Start: 04-15-2025 End: 04-15-2025 Emergency department patient visit Dr. Preet Farrar DO Work Phone: -Emergency Department Work Phone: Start: 04-06-2025 End: 04-07-2025 Telephone encounter Preet Farrar DO Work Phone: [facility] [place] Comment on above: Insurance Authorizat ion Start: 04-03-2025 End: 04-03-2025 Refill Preet Farrar DO Work Phone: [facility] [place] Comment on above: Refill Request Start: 03-29-2025 End: 03-29-2025 ambulatory DAYANAND MAKEY Facility:[facility] Start: 03-24-2025 End: 03-24-2025 Follow-up encounter Liliana Bennett APRN.CNP Work Phone: [facility] [place] Start: 03-22-2025 End: 03-22-2025 Office outpatient visit 15 minutes Liliana Bennett APRN.CNP Work Phone: [facility] [place] Comment on above: Uncontrolled type 2 diabetes mellitus with hyperglycemia (HCC); Screening for depression Start: 03-22-2025 End: 03-22-2025 Refill Liliana Childs Rios [place] Work Phone: [facility] Start: 03-18-2025 End: 03-20-2025 Telephone encounter Preet Farrar DO Work Phone: [facility] Comment on above: Patient Update Start: 03-16-2025 End: 03-16-2025 Telephone encounter Preet Farrar DO Work Phone: [facility] Comment on above: Patient Question (re : insulin) Start: 02-17-2025 End: 02-17-2025 ambulatory PREET FARRAR Facility:[facility] Start: 02-16-2025 End: 02-16-[address] Preet Farrar DO Work Phone: [facility] Work Phone: Start: 02-16-2025 End: 02-16-[address] 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 Anushka Isaac MD -[facility] [place] Work Phone: Start: 02-06-2025 End: 02-06-2025 ambulatory Preet Farrar [facility] Start: 01-26-2025 End: 01-26-[address] Julien Reyna MD -[facility] Work Phone: Start: 01-26-2025 End: 01-26-2025 ambulatory Julien Reyna Facility:[facility] Start: 01-09-2025 End: 01-09-[address] Anushka Isaac MD -[facility] [place] Work Phone: Start: 01-09-2025 End: 01-09-2025 ambulatory Anushka Isaac Facility[facility] Start: 01-04-2025 Encounter for other preprocedural examination Anushka Isaac [facility] Start: 01-03-2025 End: 02-03-2025 ambulatory Preet L Farrar DO Work Phone: [facility] [place] Start: 12-30-2024 End: 01-03-2025 ambulatory Preet L Farrar DO Work Phone: [facility] [place] Comment on above: High Blood Sugar Start: 12-29-2024 End: 01-02-2025 Telephone encounter Preet L Farrar DO Work Phone: [facility] [place] Comment on above: Patient Question Start: 12-28-2024 Non-patient / Non-visit Dr. Ton Isaac MD -[facility] Start: 12-27-2024 Non-patient / Non-visit Dr. Renae Dallas MD -[facility] Work Phone: Start: 12-27-2024 End: 12-28-2024 Evaluation and management of inpatient Dr. Anushka Isaac MD -[facility] Work Phone: Start: 12-27-2024 ambulatory [facility] Facility: [facility] Start: 12-27-2024 Non-patient / Non-visit Dr. Ton Isaac MD -[facility] Start: 12-21-2024 End: 12-21-2024 Telephone encounter Preet Dumontrison DO Work Phone: [facility] Comment on above: Prior Authorization Request Start: 12-19-2024 End: 12-19-2024 Telephone encounter Preet Wayneon DO Work Phone: [facility] [place] Comment on above: Patient Question; Up coming Surgery Start: 12-15-2024 End: 12-15-2024 ambulatory Anushka Isaac Facility:[facility] Start: 12-15-2024 End: 12-15-2024 Non-patient / Non-visit Dr. Jamel Gray MD -[facility] Work Phone: Start: 12-14-2024 End: 12-14-2024 Telephone encounter Preet Schmitt Farrar DO Work Phone: [facility] [place] Comment on above: Medication Question Start: 12-14-2024 End: 12-14-2024 ambulatory PREET DUMONTRISON Facility:[facility] Start: 12-14-2024 End: 12-14-2024 Patient encounter procedure Preet Dumontrison DO Work Phone: [facility] [place] Comment on above: Uncontrolled type 2 diabetes mellitus with hyperglycemia (HCC) (Primary Dx); Hyperlipidemia, mixed; Vitamin B12 deficiency; Vitamin D deficiency; Essential hypertension, benign; Acquired hypothyroidism; Pre-op examination Start: 12-14-2024 End: 12-14-2024 Preprocedural examination done Preet Wayneon DO Work Phone: [facility] Start: 12-12-2024 End: 12-12-[address] Anushka Isaac MD -[facility] Work Phone: Start: 12-12-2024 End: 12-12-2024 ambulatory Anushka Isaac Facility:[facility] Start: 12-01-2024 End: 12-01-2024 Refill Preet Farrar DO Work Phone: [facility] [place] Comment on above: Refill Request Start: 11-29-2024 End: 11-29-2024 Refill Preet Dumontrison DO Work Phone: [facility] [place] Comment on above: Refill Request Start: 11-16-2024 End: 11-16-2024 ambulatory PREET FARRAR Facility:[facility] Start: 11-11-2024 End: 11-11-2024 ambulatory PREET L FARRAR Facility:[facility] Start: 11-11-2024 End: 11-11-2024 Patient encounter procedure Bean Isaac MD Work Phone: Endocrinology Comment on above: Abnormal results of thyroid function studies (Primary Dx) Start: 11-07-2024 End: 11-07-2024 ambulatory PREET L FARRAR Facility:[facility] Start: 11-01-2024 End: 11-01-2024 Refill Preet L Farrar DO Work Phone: [facility] [place] Comment on above: Refill Request Start: 10-10-2024 ambulatory Julien Ryena Facility:[facility] Start: 10-10-2024 Non-patient / Non-visit Dr. Julien villanueva MD -[facility] Start: 10-10-2024 End: 10-10-[address] Julien Reyna MD -[facility] Work Phone: Start: 10-10-2024 End: 10-10-2024 ambulatory Julien Reyna Facility:[facility] Start: 10-07-2024 End: 10-07-2024 ambulatory PREET DUMONTRISON Facility:[facility] Start: 10-07-2024 End: 10-07-2024 Patient encounter procedure Preet Dumontrison DO Work Phone: [facility] [place] Comment on above: Medicare annual well ness visit, subsequent (Primary Dx); Uncontrolled type 2 diabetes mellitus with hyperglycemia (HCC); Vitamin B12 deficiency; 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, without long-term current use of insulin (HCC); Hypothyroidism, unspecified type; Hyperlipidemia, mixed; Essential hypertension, benign; Acquired hypothyroidism; Vitamin D deficiency Start: 10-05-2024 End: 10-05-2024 ambulatory PREET L FARRAR Facility:[facility] Start: 10-04-2024 End: 10-04-2024 Telephone encounter Preet Dumontrison DO Work Phone: [facility] Start: 09-13-2024 End: 09-13-[address] Anushka Isaac MD -[facility] Work Phone: Start: 09-13-2024 End: 09-13-2024 ambulatory Anushka Isaac Facility:[facility] Start: 09-12-2024 End: 10-04-2024 Telephone encounter Preet Farrar DO Work Phone: [facility] Comment on above: Results Start: 09-06-2024 ambulatory Julien Axel Facility:[facility] Start: 09-06-2024 Non-patient / Non-visit Dr. Hermes chowdary MD -[facility] Start: 09-06-2024 End: 09-06-[address] Julien Reyna MD -Cardiovascular Services Work Phone: Start: 09-06-2024 End: 09-06-2024 ambulatory Julien [facility] Facility:[facility] Start: 2024 End: 2024 Refill Preet Keshia DumontFarrar DO Work Phone: [facility] Comment on above: Refill Request Start: 08-17-2024 End: 08-17-2024 ambulatory Julien Axel Facility:[facility] Start: 08-11-2024 End: 08-11-2024 ambulatory PREET WAYNEON Facility:[facility] Start: 08-11-2024 End: 08-15-2024 Patient encounter procedure Bean Isaac MD Work Phone: Endocrinology Comment on above: Type 2 diabetes belinda itus with other circulatory complication, with long-term current use of insulin (HCC) (Primary Dx) Refill Request Start: 08-10-2024 End: 08-10-2024 ambulatory Angelina Muñoz NP Facility:[facility] Start: 08-09-2024 End: 08-09-2024 ambulatory Jackson Saravia [facility] Start: 08-09-2024 End: 08-09-2024 [facility] encounter [facility] Comment on above: Population Health Na vigation Outreach (AWV INITIATIVE) Start: 07-26-2024 End: 07-26-2024 ambulatory Anushka Isaac Facility:[facility] Start: 07-21-2024 End: 07-21-2024 ambulatory Anushkaangela Isaac Facility:[facility] Start: 07-20-2024 End: 07-21-2024 Telephone encounter Preet Dumontrison DO Work Phone: [facility] [place] Start: 07-19-2024 End: 07-25-2024 Telephone encounter Preet Dumontrison DO Work Phone: [facility] Comment on above: Faxed Labs; Surgical Clearance Forms Start: 07-19-2024 End: 07-19-2024 ambulatory Anushka Isaac [facility] Start: 07-15-2024 End: 07-25-2024 Telephone encounter Preet Dumontrison DO Work Phone: [facility] [place] Comment on above: Results Start: 07-15-2024 End: 07-15-2024 ambulatory PREET L FARRAR Facility:[facility] Start: 07-07-2024 End: 07-07-2024 ambulatory Anushka Isaac Facility:[facility] Start: 06-17-2024 End: 06-17-2024 Refill Preet Dumontrison DO Work Phone: [facility] Comment on above: Refill Request Start: 06-15-2024 End: 06-15-2024 Refill Preet Dumontrison DO Work Phone: [facility] [place] Comment on above: Refill Request Start: 06-14-2024 End: 06-14-2024 ambulatory PREET L FARRAR Facility:[facility] Start: 06-14-2024 End: 06-14-2024 Patient encounter procedure Peret L Farrar DO Work Phone: [facility] Comment on above: Uncontrolled type 2 diabetes mellitus with hyperglycemia (HCC) (Primary Dx); Acquired hypothyroidism; Essential hypertension, benign; Vitamin B12 deficiency; Hyperlipidemia, mixed; Tobacco use disorder; Vitamin D deficiency Start: 06-08-2024 End: 06-09-2024 ambulatory Nicole Montez Facility:[facility] Start: 06-08-2024 End: 06-08-2024 ambulatory Angelina Muñoz NP Facility:[facility] Start: 06-06-2024 End: 06-06-2024 ambulatory Nicole Monzonjuliet Facility:[facility] Start: 06-06-2024 End: 06-06-2024 ambulatory [facility] Facility:[facility] Start: 06-04-2024 End: 06-04-2024 ambulatory [facility] Facility:[facility] Start: 06-02-2024 End: 06-02-2024 ambulatory Preet Farrar [facility] Start: 06-02-2024 End: 06-02-2024 ambulatory [facility] Facility:[facility] Start: 05-25-2024 End: 05-25-2024 Patient encounter procedure Catalina Young APRN.CNP Work Phone: [facility] [place] Comment on above: Thickened endometriu m (Primary Dx); LLQ pain Start: 05-25-2024 End: 05-25-2024 ambulatory CATALINA YOUNG Facility:[facility] Start: 05-23-2024 End: 05-23-2024 Telephone encounter Preet Farrar DO Work Phone: [facility] [place] Comment on above: Future Appointment Refill Request Start: 05-22-2024 End: 05-22-2024 Emergency department patient visit Preet Farrar Facility:[facility] Start: 05-10-2024 End: 10-04-2024 Telephone encounter Preet Farrar DO Work Phone: [facility] Comment on above: Blood Pressure; Orde rs (lab work orders needed. the orders from november is ) Start: 05-10-2024 End: 05-10-2024 Patient encounter procedure Bean Isaac MD Work Phone: Endocrinology Comment on above: Type 2 diabetes belinda itus with other circulatory complication, with long-term current use of insulin (HCC) (Primary Dx) Start: 04-12-2024 Telephone encounter Preet rojas DO Work Phone: [facility] Comment on above: Patient Update (Bloo d Sugar Readings) Start: 03-22-2024 Telephone encounter Preet rojas DO Work Phone: [facility] [place] Comment on above: Insulin [place] Start: 03-21-2024 End: 03-21-2024 Patient encounter procedure Preet Farrar DO Work Phone: [facility] [place] Comment on above: Gastroenteritis (Marleen gregorio Dx); Uncontrolled type 2 diabetes mellitus with hyperglycemia (HCC); Acquired hypothyroidism; Obesity, Class I, BMI 30-34.9; Acute dehydration; Situational anxiety Start: 03-10-2024 Patient Outreach Preet greco DO Work Phone: [facility] Comment on above: Transition Of Care Start: 02-29-2024 Refill Preet franks DO Work Phone: [facility] [place] Comment on above: Refill Request Start: 02-15-2024 Telephone encounter Jacqueline franks [employer] Work Phone: [facility] [place] Comment on above: Blood Sugar Readings Start: 02-03-2024 ambulatory Preet franks DO Work Phone: [facility] [place] Start: 02-02-2024 Refill Preet franks DO Work Phone: [facility] [place] Comment on above: Refill Request Start: 01-27-2024 End: 01-27-2024 Patient encounter procedure Jacqueline Candelario [employer] POSTER Work Phone: [facility] [place] Comment on above: Uncontrolled type 2 diabetes mellitus with hyperglycemia (HCC) (Primary Dx); Vaginal yeast infection; Poor sleep Start: 01-12-2024 Telephone encounter Preet rojas DO Work Phone: [facility] Comment on above: Medication Problem; yeast infection again Start: 01-06-2024 End: 01-06-2024 Refill Preet Farrar DO Work Phone: [facility] Comment on above: Refill Request Uncontrolled type 2 diabetes mellitus with hyperglycemia (HCC) (Primary Dx); Situational anxiety Start: 01-03-2024 Telephone encounter Altagracia De Guzman [employer] Work Phone: [facility] Comment on above: Results Start: 01-02-2024 ambulatory Preet franks DO Work Phone: [facility] Comment on above: vaginal symptoms Start: 01-02-2024 End: 01-02-2024 Patient encounter procedure Jemima Iyer [employer] POSTER Work Phone: [facility] Comment on above: Vaginal itching (Marleen darline Dx); Dysuria; Glucosuria Start: 12-24-2023 Telephone encounter Preet rojas DO Work Phone: [facility] Comment on above: Patient Question Start: 12-17-2023 End: 12-17-2023 ambulatory [facility] Work Phone: Start: 12-17-2023 End: 12-17-2023 Patient encounter procedure [facility]-Cat Scan, [facility] Work Phone: Start: 12-09-2023 End: 12-09-2023 Patient encounter procedure Preet Farrar DO Work Phone: [facility] Comment on above: Uncontrolled type 2 diabetes [...] 12-08-2023 Refill Preet franks DO Work Phone: [facility] Comment on above: Refill Request Start: 11-25-2023 Telephone encounter Jacqueline franks [employer] Work Phone: [facility] Comment on above: Medication Request Start: 11-24-2023 End: 11-25-2023 Emergency department patient visit PREET FARRAR DO Facility:A Start: 11-24-2023 End: 11-25-2023 Emergency department patient visit ELOISA LEVIN MD [facility] Start: 11-19-2023 Telephone encounter Jacqueline franks [employer] Work Phone: [facility] Start: 11-19-2023 End: 11-19-2023 Patient encounter procedure Jacqueline Candelario [employer] Work Phone: [facility] Comment on above: Essential hypertensi on, benign (Primary Dx); Situational anxiety Start: 11-18-2023 Telephone encounter Jacqueline franks [employer] Work Phone: [facility] Comment on above: Results Start: 11-13-2023 End: 11-13-2023 Patient encounter procedure Jacqueline Candelario [employer] POSTER Work Phone: [facility] Comment on above: Essential hypertensi on, benign (Primary Dx); Acquired hypothyroidism; Controlled type 2 diabetes mellitus without complication, with long-term current use of insulin (HCC); Uncontrolled type 2 diabetes mellitus with hyperglycemia (HCC) Start: 11-12-2023 Telephone encounter Preet rojas DO Work Phone: [facility] Comment on above: Patient Update Start: 10-29-2023 End: 10-29-2023 Patient encounter procedure Jacqueline Candelario [employer] POSTER Work Phone: [facility] Comment on above: Essential hypertensi on, benign (Primary Dx) Start: 08-04-2023 Telephone encounter Preet rojas DO Work Phone: [facility] [place] Comment on above: Medication Question Start: 07-31-2023 Telephone encounter Preet rojas DO Work Phone: [facility] Comment on above: Results Start: 07-29-2023 ambulatory [facility] [place] Comment on above: Population Health Na vigation Outreach ([facility] care gap) Start: 07-29-2023 Telephone encounter Preet rojas DO Work Phone: [facility] Comment on above: Insurance Authorizat ion Start: 07-28-2023 Telephone encounter Preet rojas DO Work Phone: [facility] [place] Comment on above: Call from Dr. Kaylin lui, Neurologist Start: 07-27-2023 End: 07-27-[address] Preet Farrar Work Phone: [facility] Work Phone: Start: 07-27-2023 End: 07-27-[address] Preet Farrar Work Phone: [facility] Work Phone: Start: 07-27-2023 End: 07-27-[address] Preet Farrar Work Phone: [facility] Work Phone: Start: 07-22-2023 Telephone encounter Kathryn Hightower APRN.BILLBOARD POSTER Work Phone: [facility] Comment on above: Medication Problem Start: 07-15-2023 End: 07-15-2023 Patient encounter procedure Kathryn Rivero APRN.BILLBOARD POSTER Work Phone: [facility] Comment on above: Uncontrolled type 2 diabetes mellitus with hyperglycemia (HCC) (Primary Dx); Acquired hypothyroidism; Essential hypertension, benign; Renal artery stenosis (HCC) Start: 07-06-2023 Telephone encounter Preet roajs DO Work Phone: [facility] Start: 07-03-2023 Non-patient / Non-visit Dr. Edita Farrar Work Phone: [facility] Work Phone: Start: 07-02-2023 Non-patient / Non-visit Dr. Edita Farrar Work Phone: [facility] Work Phone: Start: 07-01-2023 End: 07-03-2023 Evaluation and management of inpatient Dr. Preet Farrar Work Phone: [facility]-Progressive Care Unit Work Phone: Start: 07-01-2023 Telephone encounter Preet rojas DO Work Phone: [facility] Comment on above: Patient Update Start: 06-26-2023 End: 06-26-2023 Patient encounter procedure Jacqueline Kodak AVILA.BILLBOARD POSTER Work Phone: [facility] Comment on above: Nausea and vomiting, unspecified vomiting type (Primary Dx); Hyperglycemia; Controlled type 2 diabetes mellitus without complication, without long-term current use of insulin (HCC) Start: 06-19-2023 End: 06-19-2023 Patient encounter procedure Kathryn Rivero [employer] POSTER Work Phone: [facility] Comment on above: Uncontrolled type 2 diabetes mellitus with hyperglycemia (HCC) (Primary Dx); Acquired hypothyroidism; Vitamin B12 deficiency Start: 05-18-2023 Refill Preet franks DO Work Phone: [facility] Comment on above: Refill Request Start: 05-14-2023 End: 05-14-[address] Preet Farrar Work Phone: [facility] Work Phone: Start: 05-14-2023 End: 05-14-[address] Preet Farrar Work Phone: [facility]-Cardiovascula r Services Work Phone: Start: 05-04-2023 Telephone encounter Preet rojas DO Work Phone: [facility] Comment on above: medication issue Start: 04-30-2023 End: 04-30-2023 Patient encounter procedure Jacqueline Candelario APRN.BILLBOARD POSTER Work Phone: [facility] Comment on above: Uncontrolled type 2 diabetes mellitus with hyperglycemia (HCC) Start: 04-09-2023 End: 04-09-[address] Preet Farrar Work Phone: [facility] Work Phone: Start: 04-09-2023 End: 04-09-[address] Preet Farrar Work Phone: [facility] Work Phone: Start: 03-24-2023 Telephone encounter Preet rojas DO Work Phone: [facility] [place] Comment on above: Kinney thyroid PA Start: 03-20-[address] Preet Farrar Work Phone: [facility] Work Phone: Start: 03-20-2023 End: 03-20-2023 Non-patient / Non-visit Dr. Preet Farrar Work Phone: [facility] Work Phone: Start: 03-18-2023 End: 03-18-2023 Patient encounter procedure Preet Farrar DO Work Phone: [facility] [place] Comment on above: Uncontrolled type 2 diabetes mellitus with hyperglycemia (HCC) (Primary Dx); Acquired hypothyroidism; Dyslipidemia; History of tobacco abuse; Essential hypertension, benign Start: 03-16-2023 End: 03-16-[address] Preet Farrar Work Phone: [facility] Work Phone: Start: 03-03-2023 Refill Preet Yeung son DO Work Phone: [facility] [place] Comment on above: Refill Request Start: 02-02-2023 Refill Preet franks DO Work Phone: [facility] [place] Comment on above: Refill Request Start: 12-23-2022 Telephone encounter Preet rojas DO Work Phone: [facility] [place] Comment on above: Medication Problem; Patient Update Start: 12-15-2022 Telephone encounter Preet rojas DO Work Phone: [facility] [place] Comment on above: Patient Update Start: 12-10-2022 End: 12-10-2022 Patient encounter procedure Preet Farrar DO Work Phone: [facility] [place] Comment on above: Uncontrolled type 2 diabetes mellitus with hyperglycemia (HCC) (Primary Dx); Ischemic stroke without residual deficits (HCC); Dyslipidemia; Acquired hypothyroidism; Vitamin D deficiency; Vitamin B12 deficiency; History of tobacco abuse Start: 11-20-2022 End: 11-20-[address] Preet Farrar Work Phone: [facility] Work Phone: Start: 11-20-2022 End: 11-20-[address] Preet Farrar Work Phone: [facility]-Physical Therapy Start: 11-05-2022 End: 11-05-2022 Patient encounter procedure Jacquelineangela Candelario APRN.CNP Work Phone: [facility] Comment on above: Ischemic stroke with out residual deficits (HCC) (Primary Dx); Essential hypertension, benign; Uncontrolled type 2 diabetes mellitus with hyperglycemia (HCC); Dyslipidemia; Encounter for smoking cessation counseling; Controlled type 2 diabetes mellitus without complication, without long-term current use of insulin (HCC) Start: 11-04-2022 Non-patient / Non-visit Dr. Eidta Farrar Work Phone: [facility] Start: 11-03-2022 Non-patient / Non-visit Dr. Edita Farrar Work Phone: [facility] Start: 11-03-2022 Non-patient / Non-visit Dr. Edita Farrar Work Phone: [facility] Start: 11-02-2022 Non-patient / Non-visit Dr. Edita Farrar Work Phone: [facility] Start: 11-02-2022 End: 11-04-2022 Evaluation and management of inpatient Dr. Preet Farrar Work Phone: [facility]-Progressive Care Unit Start: 11-02-2022 End: 11-04-[address] Preet Farrar Work Phone: [facility] Work Phone: Start: 11-02-2022 ambulatory Janis solorio RN NURSE FIXED INCOME DIRECTOR Comment on above: Foot Deformity Start: 10-08-2022 Refill Preet franks DO Work Phone: [facility] Comment on above: Refill Request Start: 09-03-2022 Telephone encounter Preet rojas DO Work Phone: [facility] Comment on above: Patient Question; Or ders Start: 08-27-2022 Refill Preet franks DO Work Phone: [address] [place] [address] Comment on above: Refill Request Start: 05-28-2022 Refill Preet franks DO Work Phone: [facility] [place] Comment on above: Refill Request Start: 05-06-2022 Refill Jacqueline Whittmarcos k [employer] POSTER Work Phone: [facility] Comment on above: Refill Request Start: 04-09-2022 End: 04-09-2022 [facility] encounter [facility] Start: 04-07-2022 Telephone encounter Preet rojas DO Work Phone: [facility] Comment on above: Results Start: 04-02-2022 Refill Preet franks DO Work Phone: [facility] Comment on above: Refill Request Start: 03-26-2022 ambulatory Preet franks DO Work Phone: [facility] [place] Start: 02-28-2022 End: 02-28-2022 Subsequent hospital visit by physician Giovani Counts Include [facility] [place] [facility] Work Phone: Radiology Comment on above: Closed fracture of d istal end of left fibula, unspecified fracture morphology, initial encounter [S82.832A] Start: 02-27-2022 Telephone encounter Preet Walker arrison DO Work Phone: [facility] Comment on above: Patient Question Start: 02-21-2022 Telephone encounter Preet Walker arrison DO Work Phone: [facility] [place] Comment on above: Results Start: 02-20-2022 Refill Preet franks DO Work Phone: [facility] Comment on above: Refill Request Start: 02-19-2022 End: 02-19-2022 Patient encounter procedure Preet Farrar DO Work Phone: [facility] Comment on above: Uncontrolled hyperte nsion (Primary Dx); Palpitations; Uncontrolled type 2 diabetes mellitus with hyperglycemia (HCC); Essential hypertension, benign; Acquired hypothyroidism Start: 02-12-2022 Telephone encounter Preet Walker janfannie DO Work Phone: [facility] Comment on above: Patient Question; Pa tient Update Start: 02-10-2022 End: 02-10-2022 Subsequent hospital visit by physician Xr Counts [facility] [place] [facility] Work Phone: Radiology Comment on above: Closed fracture of d istal end of left fibula, unspecified fracture morphology, initial encounter [S82.832A] Start: 01-31-2022 End: 01-31-2022 Patient encounter procedure Kathryn Rivero APRN.BILLBOARD POSTER Work Phone: [facility] Comment on above: Essential hypertensi on, benign (Primary Dx); Acquired hypothyroidism; Controlled type 2 diabetes mellitus without complication, without long-term current use of insulin (HCC) Start: 01-30-2022 End: 01-30-2022 Patient encounter procedure Steve Michael Work Phone: Podiatry Comment on above: Closed fracture of d istal end of left fibula, unspecified fracture morphology, initial encounter (Primary Dx) Start: 01-23-2022 End: 01-23-2022 Subsequent hospital visit by physician Giovani Counts Include [facility] [place] Work Phone: Radiology Comment on above: Acute left ankle karie n [M25.572] Start: 01-23-2022 End: 01-23-2022 Patient encounter procedure Nataly Ryan APRN.BILLBOARD POSTER Work Phone: [facility] Comment on above: Acute left ankle karie n (Primary Dx) Start: 01-14-2022 Telephone encounter Preet Walker janfannie DO Work Phone: [facility] [place] Comment on above: Insurance Authorizat ion Start: 06-07-2021 Telephone encounter Preet rojas DO Work Phone: [facility] [place] Comment on above: Results Start: 12-21-2020 End: 12-28-2020 Evaluation and management of inpatient Mhd Jose Gunter Work Phone: [facility] Procedures Date Procedure Procedure Detail Performing Clinician Start: 04-18-2025 Gluc bld gluc mntr d ev cleared fda spec home use Liliana Childs Rios [employer]BOARD POSTER Work Phone: Start: 04-15-[address] Preet Farrar DO Work Phone: Start: 04-15-2025 Carbon dioxide measurement, partial pressure Dr. Preet Farrar DO Work Phone: Start: 04-15-2025 Gases blood o2 saturation only direct mulugeta Dr. Preet Farrar DO Work Phone: Start: 04-15-2025 Measurement of parti al pressure of oxygen in blood Dr. Preet Farrar DO Work Phone: Start: 04-15-2025 Urnls dip stick/tabl et reagent auto microscopy Dr. Preet Farrar DO Work Phone: Start: 03-22-2025 Adult depression screening assessment Liliana Bennett APRN.BILLBOARD POSTER Work Phone: Start: 02-16-2025 CT of abdominal [...] 01-06-2024 Hemoglobin A1c/Hemoglobin.total in Blood Jacqueline Candelario [employer]ER Work Phone: Start: 01-02-2024 Gluc bld gluc mntr d ev cleared fda spec home use Jemima Iyer [employer] POSTER Work Phone: Start: 01-02-2024 Urnls dip stick/tabl et rgnt auto w/o microscopy Jemima Iyer [employer] POSTER Work Phone: Start: 12-17-2023 CT angiography of [...] Radex ankle complete minimum 3 views Nataly Connor [employer] POSTER Work Phone: Start: 04-24-2021 Adult depression screening [...] use Mhd Khaled Almoselli Work Phone: Start: 12-25-2020 Gluc bld gluc mntr d ev cleared fda spec home use Mhd Khaled Almoselli Work Phone: Start: 12-25-2020 Gluc bld gluc mntr d ev cleared fda spec home use Mhd Khaled Almoselli Work Phone: Start: 12-25-2020 Gluc bld gluc mntr d ev cleared fda spec home use Mhd Marield Almoselli Work Phone: Start: 12-25-2020 Gluc bld gluc mntr d ev cleared fda spec home use Mhd Yenialed Almoselli Work Phone: Start: 12-24-2020 Gluc bld gluc mntr d ev cleared fda spec home use Mhd Yenialed Almoselli Work Phone: Start: 12-24-2020 Gluc bld gluc mntr d ev cleared fda spec home use Mhd Yenialed Wilmeroselli Work Phone: Start: 12-24-2020 Assay of thyroid stimulating hormone tsh d Marield Wilmeroselli Work Phone: Start: 12-24-2020 Gluc bld gluc mntr d ev cleared fda spec home use d Marield Wilmeroselli Work Phone: Start: 12-24-2020 Gluc bld gluc mntr d ev cleared fda spec home use d Marield Almoselli Work Phone: Start: 12-24-2020 Gluc bld gluc mntr d ev cleared fda spec home use Mhd Yenialed Almoselli Work Phone: Start: 12-24-2020 Blood count complete auto&auto difrntl wbc d Marield Wilmeroselli Work Phone: Start: 12-24-2020 Gluc bld gluc mntr d ev cleared fda spec home use d Yenialed Almoselli Work Phone: Start: 12-23-2020 Gluc bld gluc mntr d ev cleared fda spec home use Mhd Yenialed Almoselli Work Phone: Start: 12-23-2020 Gluc bld gluc mntr d ev cleared fda spec home use Mhd Khaled Almoselli Work Phone: Start: 12-23-2020 Gluc bld gluc mntr d ev cleared fda spec home use d Marield Wilmeroselli Work Phone: Start: 12-23-2020 Gluc bld gluc mntr d ev cleared fda spec home use d Marield Wilmeroselli Work Phone: Start: 12-23-2020 Gluc bld gluc mntr d ev cleared fda spec home use d Marield Wilmeroselli Work Phone: Start: 12-23-2020 Blood count complete auto&auto difrntl wbc d Marield Sophieli Work Phone: Start: 12-23-2020 [...] 12-22-2020 Blood count complete auto&auto difrntl wbc araceli Barriosli Work Phone: Start: 12-22-2020 MANUAL DIFFERENTIAL araceli Gunter Work Phone: Start: 12-22-2020 Gluc bld gluc mntr d ev cleared fda spec home use d Marield Wilmeroselli Work Phone: Start: 12-22-2020 Glucose quantitative blood xcpt reagent strip d Marield Wilmeroselli Work Phone: Start: 12-22-2020 Gluc bld gluc mntr d ev cleared fda spec home use d Marield Wilmeroselli Work Phone: Start: 12-22-2020 Gluc bld gluc mntr d ev cleared fda spec home use d Marield Wilmeroselli Work Phone: Start: 12-22-2020 Hemoglobin glycosyla milton a1c Treva Henderson Work Phone: Start: 12-21-2020 OPERATIVE REPORT 3m Sca nning Start: 12-21-2020 Chest x-ray 1 view frontal Shilpi Rock Work Phone: Start: 12-21-2020 Radex spine lumbosac ral 2/3 views Shilpi A Gregorio Work Phone: Start: 12-21-2020 Basic metabolic pane l calcium total Shilpi A [employer] Work Phone: Start: 12-21-2020 Blood count complete automated Shilpi A [employer] Work Phone: Start: 12-21-2020 Blood typing serolog ic abo Shilpi A [place] [employer] Work Phone: Start: 12-21-2020 Prothrombin time Rosalio y A [employer] Work Phone: Start: 12-21-2020 Thromboplastin time partial plasma/whole blood Shilpi A [place] [employer] Work Phone: Start: 12-21-2020 End: 12-22-2020 Gluc bld gluc mntr dev cleared fda spec home use Mhd Yenibernadettearaceli Gunter Work Phone: Start: 12-21-2020 Ecg routine ecg w/le ast 12 lds w/i&r Shilpi A [employer] Work Phone: Start: 11-16-2013 Mammography Preet nuñez DO Work Phone: Start: 09-09-2013 Colonoscopy Preet nuñez DO Work Phone: H/O: hysterectomy History of tot al vaginal hysterectomy (TVH) Dr. Preet Farrar DO Work Phone: Comment on above: SM endometrial hyper plasia H/O: hysterectomy History of tot al vaginal hysterectomy (TVH) Dr. Anushka Isaac MD Hernia repair ELOISA LEVIN MD Special back care ELOISA MCKEON MD Tonsillectomy ELOISA LEVIN MD Plan of Treatment Date Care Activity Detail Author Start: 04-18-2026 Annual PCP Team Chronic Disease Visit Annual PCP Team Chronic Disease Visit [facility] Start: 04-18-2026 Hepatitis B screening Urine Albumin:Creatinine Ratio [facility] Start: 03-22-2026 Annual PCP Team Chronic Disease Visit Annual PCP Team Chronic Disease Visit [facility] Start: 03-22-2026 Depression Screening Depression Screening [facility] Start: 02-17-2026 Annual PCP Team Chronic Disease Visit Annual PCP Team Chronic Disease Visit [facility] Start: 02-09-2026 BP Controlled (<130/80) BP Controlled (<130/80) [facility] Start: 12-14-2025 Annual PCP Team Chronic Disease Visit Annual PCP Team Chronic Disease Visit [facility] Start: 11-11-2025 BP Controlled (<130/80) BP Controlled (<130/80) [facility] Start: 10-07-2025 Annual PCP Team Chronic Disease Visit Annual PCP Team Chronic Disease Visit [facility] Start: 10-07-2025 BP Controlled (<130/80) BP Controlled (<130/80) [facility] Start: 10-07-2025 Covid-19 Vaccine ( season) Covid-19 Vaccine () [facility] Comment on above: Postponed from 05/29/2024 (Declined at t his time) Start: 10-05-2025 Hepatitis B surface antibody level LDL Cholesterol [facility] Start: 08-28-2025 End: 08-28-2025 Patient encounter procedure 08/28/2025 11:00 AM EST Office Visit [facility] [address] [place] [id number] Preet Farrar DO [address] [place] [id number] yearly [facility] [place] Comment on above: yearly Start: 07-13-2025 Glaucoma screening Dilated Retinal Exam [facility] Start: 06-22-2025 Hemoglobin A1c measurement HbA1C [facility] Start: 06-14-2025 Annual PCP Team Chronic Disease Visit Annual PCP Team Chronic Disease Visit [facility] Start: 05-31-2025 End: 05-31-2025 Patient encounter procedure 05/31/2025 11:20 AM EDT Office Visit Family Bekah Barroster [address] [place] [address] Preet Farrar DO [address] [place] [address] 3 month follow up Family [facility] [place] Comment on above: 3 month follow up Start: 05-29-2025 Influenza vaccination [facility] Start: 05-25-2025 Annual PCP Team Chronic Disease Visit Annual PCP Team Chronic Disease Visit [facility] Start: 05-25-2025 BP Controlled (<130/80) BP Controlled (<130/80) [facility] Start: 05-17-2025 Hepatitis B surface antibody level LDL Cholesterol [facility] Start: 05-15-2025 End: 08-14-2025 Hemoglobin A1c in Blood HEMOGLOBIN A1C Lab Routine Uncontrolled type 2 diabetes mellitus with hyperglycemia (HCC) Expected: 05/15/2025, Expires: 08/14/2025 [facility] Work Phone: Comment on above: Expected: 05/15/2025, Expires: Start: 05-15-2025 End: 08-14-2025 Lipid 1996 panel - Serum or Plasma LIPID PANEL, FASTING Lab Routine Hyperlipidemia, mixed Expected: 05/15/2025, Expires: 08/14/2025 [facility] Comment on above: Expected: 05/15/2025, Expires: Start: 05-15-2025 End: 08-14-2025 Thyrotropin [Units/volume] in Serum or Plasma THYROID STIMULATING HORMONE Lab Routine Acquired hypothyroidism Expected: 05/15/2025, Expires: 08/14/2025 [facility] Comment on above: Expected: 05/15/2025, Expires: Start: 04-27-2025 End: 07-27-2025 Bacteria identified in Urine by Culture BACTERIAL CULTURE, URINE Microbiology Routine Other elevated white blood cell (WBC) count Expected: 04/27/2025, Expires: 07/27/2025 [facility] Comment on above: Expected: 04/27/2025, Expires: Start: 04-27-2025 End: 07-27-2025 CBC W Auto Differential panel - Blood COMPLETE BLOOD COUNT AND DIFFERENTIAL Lab Routine Other elevated white blood cell (WBC) count Expected: 04/27/2025, Expires: 07/27/2025 [facility] Comment on above: Expected: 04/27/2025, Expires: Start: 04-27-2025 End: 07-27-2025 Urinalysis complete panel - Urine URINALYSIS, WITH MICROSCOPIC Lab Routine Other elevated white blood cell (WBC) count Expected: 04/27/2025, Expires: 07/27/2025 [facility] Work Phone: Comment on above: Expected: 04/27/2025, Expires: Start: 04-18-2025 End: 04-18-2025 Patient encounter procedure 04/18/2025 8:20 AM EDT Office Visit [facility] [address], [place] [id number] Liliana Bennett APRN.[facility] [address] [place], [place] [phone] Elevated Blood Sugar [facility] Comment on above: Elevated Blood Sugar Start: 04-15-2025 [facility] Start: 04-10-2025 End: 04-10-2025 Patient encounter procedure 04/10/2025 10:00 AM EDT Office Visit [facility] [address], [place] [phone] Preet Farrar DO [address] [place], [place] [id number] 3 month follow up [facility] Comment on above: 3 month follow up Start: 04-04-2025 Hemoglobin A1c measurement HbA1C [facility] Start: 03-27-2025 Influenza vaccination Influenza Vaccine (#1) [place] Jazmin hassan Comment on above: Postponed from 05/29/2024 (Declined at t his time) Start: 03-22-2025 End: 03-22-2025 Patient encounter procedure 03/22/2025 2:00 PM EDT Office Visit [facility] [address] [facility], [place] [address] Liliana Bennett APRN.[employer] [address] [facility] [place] [address] Follow up-nausea for 1 week and diabetes Family [facility] Comment on above: Follow up-nausea for 1 week and diabetes Start: 03-21-2025 Annual PCP Team Chronic Disease Visit Annual PCP Team Chronic Disease Visit [facility] Start: 02-17-2025 End: 02-17-2025 Patient encounter procedure 02/17/2025 3:40 PM EDT Office Visit [facility] [address] [facility] [place], [place] [phone] Preet Farrar, [address] [place], [place] [phone] 3 month follow up [facility] Comment on above: 3 month follow up Start: 02-14-2025 End: 02-14-2025 Nursing evaluation of patient and report 02/14/2025 1:00 PM EDT Nurse Visit Endocrinology [address] [place], [place] [address] Rodrigo Holguin, RN [address] [id number] Type 2 diabetes mellitus with other circulatory [...] Visit Annual PCP Team Chronic Disease Visit [facility] Start: 01-26-2025 BP Controlled (<130/80) BP Controlled (<130/80) [facility] in Start: 01-05-2025 Annual PCP Team Chronic Disease Visit Annual PCP Team Chronic Disease Visit [facility] Start: 12-28-2024 Introduction of urinary catheter [facility] Start: 12-28-2024 End: 12-28-2024 [facility] Start: 12-28-2024 Patient discharge [facility] Start: 12-28-2024 Removal of urinary catheter [facility] Start: 12-27-2024 Following clinical pathway protocol [facility] Start: 12-27-2024 Consultation [facility] Start: 12-27-2024 Ambulation therapy management [facility] Start: 12-27-2024 Application of intermittent pneumatic compression device [facility] Start: 12-27-2024 Elevation of head of bed [facility] Start: 12-27-2024 Following clinical pathway protocol [facility] Start: 12-27-2024 Incentive spirometry [facility] Start: 12-27-2024 Measuring intake and output [facility] Start: 12-27-2024 Notification of physician [facility] Start: 12-27-2024 Oxygen therapy [facility] Start: 12-27-2024 Procedures relating to eating and drinking [facility] Start: 12-27-2024 Taking patient vital signs [facility] Start: 12-27-2024 [facility] Start: 12-27-2024 Introduction of urinary catheter [facility] Start: 12-27-2024 Admission procedure [facility] Start: 12-27-2024 [facility] Start: 12-14-2024 End: 12-14-2024 Patient encounter procedure 12/14/2024 11:00 AM EDT Office Visit [facility] [address] [place] [address] Preet Farrar, [address] [place] [address] Pre op Exam [facility] Comment on above: Pre op Exam Start: 12-08-2024 Annual PCP Team Chronic Disease Visit Annual PCP Team Chronic Disease Visit [facility] Start: 12-08-2024 Glaucoma screening Dilated Retinal Exam [facility] Start: 11-19-2024 Annual PCP Team Chronic Disease Visit Annual PCP Team Chronic Disease Visit [facility] Start: 11-19-2024 BP Controlled (<130/80) BP Controlled (<130/80) [facility] in Start: 11-17-2024 Hemoglobin A1c measurement HbA1C [facility] Start: 11-13-2024 Annual PCP Team Chronic Disease Visit Annual PCP Team Chronic Disease Visit [facility] Start: 11-13-2024 Covid-19 Vaccine (#1) Covid-19 Vaccine (#1) [facility] Comment on above: Postponed from 03/03/1956 (Declined at t his time) Start: 11-13-2024 Covid-19 Vaccine () Covid-19 Vaccine () [facility] Comment on above: Postponed from 05/29/2023 (Declined at t his time) Start: 11-13-2024 Hepatitis B screening Urine Albumin:Creatinine Ratio [facility] Start: 11-13-2024 Hepatitis B surface antibody level LDL Cholesterol [facility] Start: 11-13-2024 Pneumococcal Vaccine: 50+ (1 of 2 - PCV) Pneumococcal Vaccine: 50+ (1 of 2 - PCV) [facility] Comment on above: Postponed from 1974 (Declined at t his time) Start: 11-13-2024 Pneumococcal Vaccine: 65+ (1 of 2 - PCV) Pneumococcal Vaccine: 65+ (1 of 2 - PCV) [facility] Comment on above: Postponed from 1961 (Declined at t his time) Start: 11-13-2024 Shingrix Vaccine (1 of 2) Shingrix Vaccine (1 of 2) [facility] Comment on above: Postponed from 2005 (Declined at t his time) Start: 11-13-2024 Urine microalbumin profile DTaP,Tdap,Td Vaccine (1 - Tdap) [facility] Comment on above: Postponed from 1974 (Declined at t his time) Start: 11-11-2024 End: 02-10-2025 Thyrotropin [Units/volume] in Serum or Plasma THYROID STIMULATING HORMONE Lab Routine Abnormal results of thyroid function studies Expected: 11/11/2024, Expires: 02/10/2025 [facility] Work Phone: Comment on above: Expected: 11/11/2024, Expires: Start: 11-11-2024 End: 02-10-2025 THYROXIN, FR BY EQ DIALYSIS/HPLC-TNDMMS THYROXIN, FR BY EQ DIALYSIS/HPLC-TNDMMS Lab Routine Abnormal results of thyroid function studies Expected: 11/11/2024, Expires: 02/10/2025 [facility] Comment on above: Expected: 11/11/2024, Expires: Start: 11-11-2024 End: 11-11-2024 Patient encounter procedure 11/11/2024 9:40 AM EST Office Visit Endocrinology [address] [place], [place] [phone] Bean Isaac MD [address] [place] [phone] 3 month follow up Endocrinology Comment on above: 3 month follow up Start: 11-01-2024 End: 11-01-2024 Patient encounter procedure 11/01/2024 1:00 PM EST Office Visit Cardiology [address] [place] [phone] Torri Hunt MD [address] [place] [address] Rescheduled from 07/25 Cardiology Comment on above: Rescheduled from 07/25 Start: 10-29-2024 Annual PCP Team Chronic Disease Visit Annual PCP Team Chronic Disease Visit [facility] Start: 10-07-2024 End: 10-07-2024 Patient encounter procedure [facility] [place] Comment on above: 3 month follow up 3 month follow up-ne eds also Medicare wellness Start: 10-04-2024 End: 01-03-2025 CBC W Auto Differential panel - Blood COMPLETE BLOOD COUNT AND DIFFERENTIAL Lab Routine Hypothyroidism, unspecified type 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, without long-term current use of insulin (HCC) Expected: 10/04/2024, Expires: 01/03/2025 [facility] Comment on above: Expected: 10/04/2024, Expires: Start: 10-04-2024 End: 01-03-2025 Comprehensive metabolic 2000 panel - Serum or Plasma COMPREHENSIVE METABOLIC PANEL Lab Routine Hyperlipidemia, mixed Expected: 10/04/2024, Expires: 01/03/2025 [facility] Comment on above: Expected: 10/04/2024, Expires: Start: 10-04-2024 End: 01-03-2025 Hemoglobin A1c in Blood HEMOGLOBIN A1C Lab Routine 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, without long-term current use of insulin (HCC) Expected: 10/04/2024, Expires: 01/03/2025 [facility] Comment on above: Expected: 10/04/2024, Expires: Start: 10-04-2024 End: 01-03-2025 Lipid 1996 panel - Serum or Plasma LIPID PANEL BASIC Lab Routine Hyperlipidemia, mixed Expected: 10/04/2024, Expires: 01/03/2025 [facility] Comment on above: Expected: 10/04/2024, Expires: Start: 10-04-2024 End: 01-03-2025 Thyrotropin [Units/volume] in Serum or Plasma THYROID STIMULATING HORMONE Lab Routine Hypothyroidism, unspecified type Expected: 10/04/2024, Expires: 01/03/2025 [facility] Work Phone: Comment on above: Expected: 10/04/2024, Expires: Start: 10-04-2024 End: 01-03-2025 Thyroxine (T4) free [Mass/volume] in Serum or Plasma T4 FREE/FREE THYROXINE Lab Routine Hypothyroidism, unspecified type Expected: 10/04/2024, Expires: 01/03/2025 [facility] Comment on above: Expected: 10/04/2024, Expires: Start: 10-04-2024 End: 01-03-2025 Triiodothyronine (T3) Free [Mass/volume] in Serum or Plasma T3, FREE Lab Routine Hypothyroidism, unspecified type Expected: 10/04/2024, Expires: 01/03/2025 [facility] Comment on above: Expected: 10/04/2024, Expires: Start: 09-14-2024 RSV Vaccine (1 - 1-dose 60+ series) RSV Vaccine (1 - 1-dose 60+ series) [facility] Comment on above: Postponed from 2015 (Declined at t his time) Start: 09-14-2024 RSV Vaccine (1 - Risk 60-74 years 1-dose series) RSV Vaccine (1 - Risk 60-74 years 1-dose series) [facility] Comment on above: Postponed from 2015 (Declined at t his time) Start: 08-11-2024 End: 11-10-2024 Cortisol [Mass/volume] in Serum or Plasma --post dose dexamethasone CORTISOL SUPRES POST Lab Routine Type 2 diabetes mellitus with other circulatory complication, with long-term current use of insulin (HCC) Expected: 08/11/2024, Expires: 11/10/2024 [facility] Comment on above: Expected: 08/11/2024, Expires: Start: 08-11-2024 End: 11-10-2024 DEXAMETHASONE DEXAMETHASONE Lab Routine Type 2 diabetes mellitus with other circulatory complication, with long-term current use of insulin (HCC) Expected: 08/11/2024, Expires: 11/10/2024 [facility] Work Phone: Comment on above: Expected: 08/11/2024, Expires: Start: 08-11-2024 End: 08-11-2024 Patient encounter procedure 08/11/2024 9:40 AM EST Office Visit Endocrinology [address] [place] [phone] Bean Isaac MD [address] [place] [phone] 3 MTH F/U Endocrinology Comment on above: 3 MTH F/U Start: 07-25-2024 End: 07-25-2024 Patient encounter procedure 07/25/2024 10:20 AM EDT Office Visit Cardiology [address] [place] [id number] Jose Lay MD [address] [facility] [facility], [address] [place] [address] Uncontrolled type 2 diabetes mellitus with hyperglycemia (HCC) [E11.65] Cardiology Comment on above: Uncontrolled type 2 diabetes mellitus wi th hyperglycemia (HCC) [E11.65] Start: 07-15-2024 Annual PCP Team Chronic Disease Visit Annual PCP Team Chronic Disease Visit [facility] Start: 07-15-2024 BP Controlled (<130/80) BP Controlled (<130/80) [facility] Start: 07-15-2024 Hepatitis B Vaccine (1 of 3 - Risk 3-dose series) Hepatitis B Vaccine (1 of 3 - Risk 3-dose series) [facility] Comment on above: Postponed from 2015 (Declined at t his time) Start: 07-14-2024 End: 10-13-2024 Thyrotropin [Units/volume] in Serum or Plasma THYROID STIMULATING HORMONE Lab Routine Acquired hypothyroidism Expected: 07/14/2024, Expires: 10/13/2024 [facility] Work Phone: Comment on above: Expected: 07/14/2024, Expires: Start: 07-14-2024 End: 10-13-2024 Thyroxine (T4) free [Mass/volume] in Serum or Plasma T4 FREE/FREE THYROXINE Lab Routine Acquired hypothyroidism Expected: 07/14/2024, Expires: 10/13/2024 [facility] Comment on above: Expected: 07/14/2024, Expires: Start: 07-14-2024 End: 10-13-2024 Triiodothyronine (T3) Free [Mass/volume] in Serum or Plasma T3, FREE Lab Routine Acquired hypothyroidism Expected: 07/14/2024, Expires: 10/13/2024 [facility] Comment on above: Expected: 07/14/2024, Expires: Start: 07-07-2024 Hemoglobin A1c measurement HbA1C [facility] Start: 06-27-2024 End: 06-27-2024 Patient encounter procedure 06/27/2024 9:20 AM EDT Office Visit [facility] [address] [facility] [place] [address] Preet Farrar DO [address] [place] [address] 2-3 month follow up [facility] [place] Comment on above: 2-3 month follow up Start: 06-26-2024 Annual PCP Team Chronic Disease Visit Annual PCP Team Chronic Disease Visit [facility] Start: 06-26-2024 BP Controlled (<130/80) BP Controlled (<130/80) [facility] Start: 06-19-2024 Annual PCP Team Chronic Disease Visit Annual PCP Team Chronic Disease Visit [facility] Start: 06-19-2024 BP Controlled (<130/80) BP Controlled (<130/80) [facility] Start: 06-15-2024 Hepatitis B surface antibody level LDL Cholesterol [facility] Start: 05-29-2024 Covid-19 Vaccine ( season) Covid-19 Vaccine () [facility] Start: 05-29-2024 Covid-19 Vaccine ( season) Covid-19 Vaccine ( season) [facility] Start: 05-29-2024 Influenza vaccination [facility] Start: 05-25-2024 End: 05-25-2024 Patient encounter procedure 05/25/2024 2:40 PM EDT Office Visit [facility] [place] [address] [facility] [place] [address] PodCatalina cohen APRN.[employer] [address] [place] [address] [facility] ER 05/22/24 Left side pain [facility] [place] Comment on above: [facility] ER 05/22/24 Left side pain Start: 05-16-2024 Hemoglobin A1c measurement HbA1C [facility] Start: 05-13-2024 Hemoglobin A1c measurement HbA1C [facility] Start: 05-10-2024 End: 05-10-2024 Patient encounter procedure 05/10/2024 1:40 PM EDT Office Visit Endocrinology [address] [place] [address] Bean Isaac MD [address] [place] [address] Uncontrolled type 2 diabetes mellitus with hyperglycemia (HCC) [E11.65] Endocrinology Comment on above: Uncontrolled type 2 diabetes mellitus wi th hyperglycemia (HCC) [E11.65] Start: 04-30-2024 ANNUAL PCP TEAM CHRONIC DISEASE VISIT ANNUAL PCP TEAM CHRONIC DISEASE VISIT [facility] Start: 03-27-2024 Influenza [facility] Comment on above: Postponed from 05/29/2023 (Declined at t his time) Start: 03-21-2024 End: 03-21-2024 Patient encounter procedure [facility] Comment on above: medicare wellness TCM. [facility] hosp f/u d/ c 03-09-24. Gastroenteritis. Hyperglycemia. Start: 03-18-2024 ANNUAL PCP TEAM CHRONIC DISEASE VISIT ANNUAL PCP TEAM CHRONIC DISEASE VISIT [facility] Start: 03-10-2024 End: 06-09-2024 CBC panel - Blood by Automated count CBC Lab Routine Uncontrolled type 2 diabetes mellitus with hyperglycemia (HCC) Expected: 03/10/2024, Expires: 06/09/2024 [facility] Work Phone: Comment on above: Expected: 03/10/2024, Expires: 4 Start: 03-10-2024 End: 06-09-2024 Comprehensive metabolic 2000 panel - Serum or Plasma COMP METABOLIC PANEL Lab Routine Uncontrolled type 2 diabetes mellitus with hyperglycemia (HCC) Expected: 03/10/2024, Expires: 06/09/2024 [facility] Work Phone: Comment on above: Expected: 03/10/2024, Expires: 4 Start: 03-10-2024 End: 06-09-2024 Hemoglobin A1c in Blood HGB A1C Lab Routine Uncontrolled type 2 diabetes mellitus with hyperglycemia (HCC) Expected: 03/10/2024, Expires: 06/09/2024 [facility] Work Phone: Comment on above: Expected: 03/10/2024, Expires: 4 Start: 03-10-2024 Hepatitis B surface antibody level LDL CHOLESTEROL [facility] Start: 03-10-2024 End: 06-09-2024 Lipid 1996 panel - Serum or Plasma LIPID PANEL BASIC Lab Routine Hyperlipidemia, mixed Expected: 03/10/2024, Expires: 06/09/2024 [facility] Work Phone: Comment on above: Expected: 03/10/2024, Expires: Start: 03-10-2024 End: 06-09-2024 Magnesium [Mass/volume] in Serum or Plasma MAGNESIUM Lab Routine Poor sleep Expected: 03/10/2024, Expires: 06/09/2024 [facility] Work Phone: Comment on above: Expected: 03/10/2024, Expires: Start: 03-10-2024 End: 06-09-2024 Thyrotropin [Units/volume] in Serum or Plasma TSH BLD Lab Routine Uncontrolled type 2 diabetes mellitus with hyperglycemia (HCC) Expected: 03/10/2024, Expires: 06/09/2024 [facility] Work Phone: Comment on above: Expected: 03/10/2024, Expires: Start: 03-09-2024 Hemoglobin A1c measurement HbA1C [facility] Start: 02-17-2024 Glaucoma screening Dilated Retinal Exam [facility] Start: 02-17-2024 Hepatitis C antibody, confirmatory test DILATED RETINAL EXAM [facility] Start: 12-14-2023 Hemoglobin A1c/Hemoglobin.total in Blood HbA1C [facility] Start: 12-12-2023 End: 03-12-2024 ALBUMIN/CREAT RATIO RND UR ALBUMIN/CREAT RATIO RND UR Lab Routine Uncontrolled type 2 diabetes mellitus with hyperglycemia (HCC) Expected: 12/12/2023, Expires: 03/12/2024 [facility] Work Phone: Comment on above: Expected: 12/12/2023, Expires: 4 Start: 12-12-2023 End: 03-12-2024 Comprehensive metabolic 2000 panel - Serum or Plasma COMP METABOLIC PANEL Lab Routine Essential hypertension, benign Expected: 12/12/2023, Expires: 03/12/2024 [facility] Work Phone: Comment on above: Expected: 12/12/2023, Expires: 4 Start: 12-12-2023 End: 03-12-2024 Lipid 1996 panel - Serum or Plasma LIPID PANEL BASIC Lab Routine Essential hypertension, benign Expected: 12/12/2023, Expires: 03/12/2024 [facility] Work Phone: Comment on above: Expected: 12/12/2023, Expires: 4 Start: 12-11-2023 3 comp foot exam completed DIABETIC FOOT EXAM [facility] Start: 12-11-2023 ANNUAL PCP TEAM CHRONIC DISEASE VISIT ANNUAL PCP TEAM CHRONIC DISEASE VISIT [facility] Start: 12-11-2023 BP CONTROLLED (<130/80) BP CONTROLLED (<130/80) [facility] Start: 12-11-2023 Diabetic foot examination Diabetic Foot Exam [facility] Start: 12-03-2023 Hepatitis B surface antibody level LDL CHOLESTEROL [facility] Start: 11-13-2023 End: 02-12-2024 Thyrotropin [Units/volume] in Serum or Plasma [facility] Work Phone: Comment on above: Expected: 11/13/2023, Expires: 4 Start: 11-13-2023 End: 02-12-2024 Thyroxine (T4) free [Mass/volume] in Serum or Plasma [facility] Work Phone: Comment on above: Expected: 11/13/2023, Expires: 4 Start: 11-13-2023 End: 02-12-2024 Triiodothyronine (T3) [Mass/volume] in Serum or Plasma [facility] Work Phone: Comment on above: Expected: 11/13/2023, Expires: 4 Start: 11-05-2023 ANNUAL PCP TEAM CHRONIC DISEASE VISIT ANNUAL PCP TEAM CHRONIC DISEASE VISIT [facility] Start: 11-05-2023 BP CONTROLLED (<130/80) BP CONTROLLED (<130/80) [facility] Start: 11-05-2023 COVID-19 VACCINE (#1) COVID-19 VACCINE (#1) [facility] Comment on above: Postponed from 03/03/1956 (Declined at t his time) Start: 11-05-2023 Hepatitis B screening URINE ALBUMIN:CREATININE RATIO [facility] Start: 11-05-2023 Pneumococcal Vaccine: 65+ (1 - PCV) Pneumococcal Vaccine: 65+ (1 - PCV) [facility] Comment on above: Postponed from 1961 (Declined at t his time) Start: 11-05-2023 Pneumococcal Vaccine: 65+ (1 of 2 - PCV) Pneumococcal Vaccine: 65+ (1 of 2 - PCV) [facility] Comment on above: Postponed from 1961 (Declined at t his time) Start: 11-05-2023 PNEUMOCOCCAL: 65+ (1 - PCV) PNEUMOCOCCAL: 65+ (1 - PCV) [facility] Comment on above: Postponed from 1961 (Declined at t his time) Start: 11-05-2023 SHINGRIX VACCINE (1 of 2) SHINGRIX VACCINE (1 of 2) [facility] Comment on above: Postponed from 2005 (Declined at t his time) Start: 11-05-2023 Urine microalbumin profile [facility] Comment on above: Postponed from 1974 (Declined at t his time) Start: 09-28-2023 Behavioral Health Screening Behavioral Health Screening [facility] Start: 09-28-2023 Depression Assessment Depression Assessment [facility] Start: 09-28-2023 zzBehavioral Health Screening zzBehavioral Health Screening [facility] Start: 09-27-2023 DEPRESSION ASSESSMENT DEPRESSION ASSESSMENT [facility] Comment on above: Postponed from 09/28/2022 (Declined at t his time) Start: 09-18-2023 End: 11-18-2023 Cobalamin (Vitamin B12) [Mass/volume] in Serum or Plasma VITAMIN B12 BLOOD Lab Routine Vitamin B12 deficiency Expected: 09/18/2023, Expires: 11/18/2023 [facility] Work Phone: Comment on above: Expected: 09/18/2023, Expires: Start: 09-18-2023 End: 11-18-2023 Hemoglobin A1c in Blood HGB A1C Lab Routine Uncontrolled type 2 diabetes mellitus with hyperglycemia (HCC) Expected: 09/18/2023, Expires: 11/18/2023 [facility] Work Phone: Comment on above: Expected: 09/18/2023, Expires: 4 Start: 09-18-2023 End: 11-18-2023 Thyrotropin [Units/volume] in Serum or Plasma TSH BLD Lab Routine Acquired hypothyroidism Expected: 09/18/2023, Expires: 11/18/2023 [facility] Work Phone: Comment on above: Expected: 09/18/2023, Expires: 4 Start: 09-18-2023 End: 11-18-2023 Thyroxine (T4) free [Mass/volume] in Serum or Plasma T4 FREE/FREE THYROX Lab Routine Acquired hypothyroidism Expected: 09/18/2023, Expires: 11/18/2023 [facility] Work Phone: Comment on above: Expected: 09/18/2023, Expires: 4 Start: 09-18-2023 End: 11-18-2023 Triiodothyronine (T3) [Mass/volume] in Serum or Plasma T3 BLD Lab Routine Acquired hypothyroidism Expected: 09/18/2023, Expires: 11/18/2023 [facility] Work Phone: Comment on above: Expected: 09/18/2023, Expires: 4 Start: 09-10-2023 ANNUAL PCP TEAM CHRONIC DISEASE VISIT ANNUAL PCP TEAM CHRONIC DISEASE VISIT [facility] Start: 09-09-2023 Colonoscopy COLONOSCOPY [facility] Start: 09-09-2023 COLORECTAL CANCER SCREENING COLORECTAL CANCER SCREENING [facility] Start: 09-09-2023 Hemoglobin A1c/Hemoglobin.total in Blood HBA1C [facility] Start: 09-09-2023 Screening for malignant neoplasm of colon [facility] Start: 09-08-2023 Hepatitis B surface antibody level LDL CHOLESTEROL [facility] Start: 07-28-2023 End: 10-27-2023 POTASSIUM BLD POTASSIUM BLD Lab Routine Hypokalemia Expected: 07/28/2023, Expires: 10/27/2023 [facility] Work Phone: Comment on above: Expected: 07/28/2023, Expires: 4 Start: 07-03-2023 Patient discharge [facility] Start: 07-01-2023 Following clinical pathway protocol [facility] Start: 07-01-2023 Assessment of risk of venous thromboembolism [facility] Start: 07-01-2023 Care regimes management [facility] Start: 07-01-2023 Fall prevention [facility] Start: 07-01-2023 Incentive spirometry [facility] Start: 07-01-2023 Inhalation therapy procedure [facility] Start: 07-01-2023 Insertion of catheter into peripheral vein [facility] Start: 07-01-2023 Introduction of urinary catheter [facility] Start: 07-01-2023 Measuring intake and output [facility] Start: 07-01-2023 Notification of physician [facility] Start: 07-01-2023 Oxygen therapy [facility] Start: 07-01-2023 Providing care according to standard [facility] Start: 07-01-2023 Provision of activity privileges [facility] Start: 07-01-2023 Referral to occupational therapist [facility] Start: 07-01-2023 Referral to service [facility] Start: 07-01-2023 [facility] Start: 07-01-2023 Admission procedure [facility] Start: 06-18-2023 End: 08-18-2023 Comprehensive metabolic 2000 panel - Serum or Plasma COMP METABOLIC PANEL Lab Routine Uncontrolled type 2 diabetes mellitus with hyperglycemia (HCC) Expected: 06/18/2023, Expires: 08/18/2023 [facility] Work Phone: Comment on above: Expected: 06/18/2023, Expires: 3 Start: 06-18-2023 End: 08-18-2023 Hemoglobin A1c in Blood HGB A1C Lab Routine Uncontrolled type 2 diabetes mellitus with hyperglycemia (HCC) Expected: 06/18/2023, Expires: 08/18/2023 [facility] Work Phone: Comment on above: Expected: 06/18/2023, Expires: 3 Start: 06-18-2023 End: 08-18-2023 Lipid 1996 panel - Serum or Plasma LIPID PANEL BASIC Lab Routine Dyslipidemia Expected: 06/18/2023, Expires: 08/18/2023 [facility] Work Phone: Comment on above: Expected: 06/18/2023, Expires: 3 Start: 06-18-2023 End: 08-18-2023 Thyrotropin [Units/volume] in Serum or Plasma TSH BLD Lab Routine Acquired hypothyroidism Expected: 06/18/2023, Expires: 08/18/2023 [facility] Work Phone: Comment on above: Expected: 06/18/2023, Expires: 3 Start: 06-18-2023 End: 08-18-2023 Thyroxine (T4) free [Mass/volume] in Serum or Plasma T4 FREE/FREE THYROX Lab Routine Acquired hypothyroidism Expected: 06/18/2023, Expires: 08/18/2023 [facility] Work Phone: Comment on above: Expected: 06/18/2023, Expires: 3 Start: 06-04-2023 Hemoglobin A1c/Hemoglobin.total in Blood HBA1C [facility] Start: 05-29-2023 Influenza vaccination [facility] Start: 03-27-2023 Influenza vaccination INFLUENZA (#1) [facility] Comment on above: Postponed from 05/29/2022 (Declined at t his time) Start: 03-12-2023 End: 05-12-2023 25-hydroxyvitamin D3 [Mass/volume] in Serum or Plasma VITAMIN D 25 HYDROXY Lab Routine Vitamin D deficiency Expected: 03/12/2023, Expires: 05/12/2023 [facility] Work Phone: Comment on above: Expected: 03/12/2023, Expires: 3 Start: 03-12-2023 End: 05-12-2023 CBC panel - Blood by Automated count CBC Lab Routine Uncontrolled type 2 diabetes mellitus with hyperglycemia (HCC) Expected: 03/12/2023, Expires: 05/12/2023 [facility] Work Phone: Comment on above: Expected: 03/12/2023, Expires: 3 Start: 03-12-2023 End: 05-12-2023 Comprehensive metabolic 2000 panel - Serum or Plasma COMP METABOLIC PANEL Lab Routine Uncontrolled type 2 diabetes mellitus with hyperglycemia (HCC) Expected: 03/12/2023, Expires: 05/12/2023 [facility] Work Phone: Comment on above: Expected: 03/12/2023, Expires: 3 Start: 03-12-2023 End: 05-12-2023 Hemoglobin A1c in Blood HGB A1C Lab Routine Uncontrolled type 2 diabetes mellitus with hyperglycemia (HCC) Expected: 03/12/2023, Expires: 05/12/2023 [facility] Work Phone: Comment on above: Expected: 03/12/2023, Expires: 3 Start: 03-12-2023 End: 05-12-2023 Lipid 1996 panel - Serum or Plasma LIPID PANEL BASIC Lab Routine Uncontrolled type 2 diabetes mellitus with hyperglycemia (HCC) Dyslipidemia Expected: 03/12/2023, Expires: 05/12/2023 [facility] Work Phone: Comment on above: Expected: 03/12/2023, Expires: 3 Start: 03-12-2023 End: 05-12-2023 Thyrotropin [Units/volume] in Serum or Plasma TSH BLD Lab Routine Acquired hypothyroidism Expected: 03/12/2023, Expires: 05/12/2023 [facility] Work Phone: Comment on above: Expected: 03/12/2023, Expires: 3 Start: 03-09-2023 Hemoglobin A1c/Hemoglobin.total in Blood HBA1C [facility] Start: 02-19-2023 ANNUAL PCP TEAM CHRONIC DISEASE VISIT ANNUAL PCP TEAM CHRONIC DISEASE VISIT [facility] Start: 01-31-2023 ANNUAL PCP TEAM CHRONIC DISEASE VISIT ANNUAL PCP TEAM CHRONIC DISEASE VISIT [facility] Start: 11-13-2022 Hepatitis B screening URINE ALBUMIN:CREATININE RATIO [facility] Start: 11-11-2022 Blood chemistry [facility] Start: 11-10-2022 Blood chemistry [facility] Start: 11-09-2022 Blood chemistry [facility] Start: 11-08-2022 Blood chemistry [facility] Start: 11-07-2022 Blood chemistry [facility] Start: 11-06-2022 Blood chemistry [facility] Start: 11-05-2022 Blood chemistry [facility] Start: 11-04-2022 Patient discharge [facility] Start: 11-03-2022 Referral to vascular surgeon [facility] Start: 11-02-2022 Assessment of risk of venous thromboembolism [facility] Start: 11-02-2022 Cardiac monitoring [facility] Start: 11-02-2022 Care regimes management [facility] Start: 11-02-2022 Catheterization of vein [facility] Start: 11-02-2022 Elevation of head of bed [facility] Start: 11-02-2022 Exercises [facility] Start: 11-02-2022 Implementation of planned interventions [facility] Start: 11-02-2022 Insertion of catheter into peripheral vein [facility] Start: 11-02-2022 Measuring intake and output [facility] Start: 11-02-2022 Notification of physician [facility] Start: 11-02-2022 Providing care according to standard [facility] Start: 11-02-2022 Provision of activity privileges [facility] Start: 11-02-2022 Referral to occupational therapist [facility] Start: 11-02-2022 Referral to service [facility] Start: 11-02-2022 Tobacco use cessation education [facility] Start: 11-02-2022 [facility] Start: 11-02-2022 Verification routine [facility] Start: 11-02-2022 Admission procedure [facility] Start: 11-02-2022 Following clinical pathway protocol [facility] Start: 10-23-2022 3 comp foot exam completed DIABETIC FOOT EXAM [facility] Start: 10-23-2022 ANNUAL PCP TEAM CHRONIC DISEASE VISIT ANNUAL PCP TEAM CHRONIC DISEASE VISIT [facility] Start: 10-23-2022 BP CONTROLLED (<130/80) BP CONTROLLED (<130/80) [facility] in Start: 10-23-2022 COVID-19 VACCINE (#1) COVID-19 VACCINE (#1) [facility] Comment on above: Postponed from 1960 (Declined at t his time) Postponed from 03/03 (Declined at this time) Start: 10-23-2022 COVID-19 VACCINE (1) COVID-19 VACCINE (1) [facility] Comment on above: Postponed from 1960 (Declined at t his time) Start: 09-28-2022 ADVANCE DIRECTIVE DISCUSSION ADVANCE DIRECTIVE DISCUSSION [facility] Start: 09-28-2022 DEPRESSION ASSESSMENT DEPRESSION ASSESSMENT [facility] Start: 09-03-2022 End: 11-03-2022 25-hydroxyvitamin D3 [Mass/volume] in Serum or Plasma VITAMIN D 25 HYDROXY Lab Routine Vitamin D deficiency Expected: 09/03/2022, Expires: 11/03/2022 [facility] Work Phone: Comment on above: Expected: 09/03/2022, Expires: 3 Start: 09-03-2022 End: 11-03-2022 CBC W Auto Differential panel - Blood CBC + DIFF Lab Routine Dyslipidemia Expected: 09/03/2022, Expires: 11/03/2022 [facility] Work Phone: Comment on above: Expected: 09/03/2022, Expires: 3 Start: 09-03-2022 End: 11-03-2022 Comprehensive metabolic 2000 panel - Serum or Plasma COMP METABOLIC PANEL Lab Routine Dyslipidemia Expected: 09/03/2022, Expires: 11/03/2022 [facility] Work Phone: Comment on above: Expected: 09/03/2022, Expires: 3 Start: 09-03-2022 End: 11-03-2022 Hemoglobin A1c in Blood HGB A1C Lab Routine Uncontrolled type 2 diabetes mellitus with hyperglycemia (HCC) Expected: 09/03/2022, Expires: 11/03/2022 [facility] Work Phone: Comment on above: Expected: 09/03/2022, Expires: 3 Start: 09-03-2022 End: 11-03-2022 Iron and Iron binding capacity panel - Serum or Plasma IRON + TIBC Lab Routine Iron deficiency anemia, unspecified iron deficiency anemia type Expected: 09/03/2022, Expires: 11/03/2022 [facility] Work Phone: Comment on above: Expected: 09/03/2022, Expires: 3 Start: 09-03-2022 End: 11-03-2022 Lipid 1996 panel - Serum or Plasma LIPID PANEL BASIC Lab Routine Dyslipidemia Expected: 09/03/2022, Expires: 11/03/2022 [facility] Work Phone: Comment on above: Expected: 09/03/2022, Expires: 3 Start: 08-22-2022 Hemoglobin A1c/Hemoglobin.total in Blood HBA1C [facility] Start: 07-10-2022 Hepatitis C antibody, confirmatory test DILATED RETINAL EXAM [facility] Start: 05-29-2022 Influenza vaccination [facility] Start: 05-22-2022 End: 07-22-2022 Hemoglobin A1c/Hemoglobin.total in Blood HGB A1C Lab Routine Uncontrolled type 2 diabetes mellitus with hyperglycemia (HCC) Expected: 05/22/2022 (Approximate), Expires: 07/22/2022 [facility] Work Phone: Comment on above: Expected: 05/22/2022 (Approximate), Expi res: 07/22/2022 Start: 05-13-2022 Hemoglobin A1c/Hemoglobin.total in Blood HBA1C [facility] Start: 04-24-2022 Adult depression screening assessment DEPRESSION SCREENING [facility] Start: 04-16-2022 Hepatitis B surface antibody level LDL CHOLESTEROL [facility] Start: 02-21-2022 End: 04-23-2022 ALDOSTERONE/DIRECT RENIN RATIO [facility] Work Phone: Comment on above: Expected: 02/21/2022, Expires: 2 Start: 02-19-2022 End: 04-21-2022 ALDOSTERONE/DIRECT RENIN RATIO [facility] Work Phone: Comment on above: Expected: 02/19/2022, Expires: 2 Start: 02-19-2022 End: 04-21-2022 Comprehensive metabolic 2000 panel - Serum or Plasma [facility] Work Phone: Comment on above: Expected: 02/19/2022, Expires: 2 Start: 02-19-2022 End: 04-21-2022 Cortisol [Mass/volume] in Serum or Plasma [facility] Work Phone: Comment on above: Expected: 02/19/2022, Expires: 2 Start: 02-19-2022 End: 04-21-2022 Urinalysis complete panel - Urine [facility] Work Phone: Comment on above: Expected: 02/19/2022, Expires: 2 Start: 12-22-2021 HbA1c (Bld) [Mass fraction] A1C test (Diabetic or Prediabetic) [facility] Work Phone: Start: 09-28-2021 ADVANCE DIRECTIVE DISCUSSION ADVANCE DIRECTIVE DISCUSSION [facility] Start: 09-28-2021 DEPRESSION ASSESSMENT DEPRESSION ASSESSMENT [facility] Start: 05-29-2021 Influenza vaccination Flu vaccine (Season Ended) [facility] Work Phone: Start: 12-22-2020 Annual Wellness Visit (AWV) Annual Wellness Visit (AWV) [facility] Work Phone: Start: 12-09-2020 Screening for malignant neoplasm of cervix Cervical Cancer Screening [facility] Start: 2020 Pneumococcal 65+ years Vaccine (1 of 1 - PPSV23) Pneumococcal 65+ years Vaccine (1 of 1 - PPSV23) [facility] Work Phone: Start: 2020 PNEUMOVAX AGE 65 AND OVER WITH 5YR LOOKBACK (#1) PNEUMOVAX AGE 65 AND OVER WITH 5YR LOOKBACK (#1) [facility] Start: 2015 Hepatitis B Vaccine (1 of 3 - Risk 3-dose series) Hepatitis B Vaccine (1 of 3 - Risk 3-dose series) [facility] Start: 2015 RSV Vaccine (1 - 1-dose 60+ series) RSV Vaccine (1 - 1-dose 60+ series) [facility] Start: 2015 RSV Vaccine (1 - Risk 60-74 years 1-dose series) RSV Vaccine (1 - Risk 60-74 years 1-dose series) [facility] Start: 11-16-2014 Mammography [facility] Start: 11-16-2014 Screening for malignant neoplasm of breast Mammogram Screening [facility] Start: 2010 Screening for malignant neoplasm of [...] of 2) SHINGRIX VACCINE (1 of 2) [facility] Start: 2000 COLOGUARD (FIT-DNA) COLOGUARD (FIT-DNA) [facility] Start: [address] COLONOGRAPHY [facility] Start: 2000 FECAL OCCULT BLOOD FECAL OCCULT BLOOD [facility] Start: 2000 Screening for malignant neoplasm of colon [facility] Start: 2000 SIGMOIDOSCOPY SIGMOIDOSCOPY [facility] Start: 1976 Screening for malignant neoplasm of cervix Cervical cancer screen [facility] Work Phone: Start: 1974 DTaP/Tdap/Td vaccine (1 - Tdap) DTaP/Tdap/Td vaccine (1 - Tdap) [facility] Work Phone: Start: 1974 Hepatitis A Vaccine (1 of 2 - Risk 2-dose series) Hepatitis A Vaccine (1 of 2 - Risk 2-dose series) [facility] Start: 1974 Pneumococcal Vaccine: 50+ (1 of 2 - PCV) Pneumococcal Vaccine: 50+ (1 of 2 - PCV) [facility] Start: 1974 Urine microalbumin profile [facility] Start: 1973 Depression Screening Depression Screening [facility] Start: 1973 Diabetic microalbuminuria test Diabetic microalbuminuria test [facility] Work Phone: Start: 1973 MMR Vaccine (1 of 2 - Risk 2-dose series) MMR Vaccine (1 of 2 - Risk 2-dose series) [facility] Start: 1971 COVID-19 Vaccine (1) COVID-19 Vaccine [...] Risk (1 of 4 - Increased Risk) [facility] Start: 1961 PNEUMOCOCCAL: 65+ (1 - PCV) PNEUMOCOCCAL: 65+ (1 - PCV) [facility] Start: 03-03-1956 COVID-19 VACCINE (#1) COVID-19 VACCINE (#1) [facility] Start: 1955 Hepatitis C screening Hepatitis C screen [facility] Work Phone: ALBUMIN/CREAT RATIO RND UR ALBUMIN/CREAT RATIO RND UR Lab Routine Uncontrolled type 2 diabetes mellitus with hyperglycemia (HCC) 11/13/2023 9:31 AM EST [facility] Work Phone: Anion gap measurement [facility] Anion gap measurement [facility] Anion gap measurement [facility] Anion gap measurement [facility] Anion gap measurement [facility] Anion gap measurement [facility] Anion gap measurement [facility] Bacteria identified in Urine by Culture URINE CULTURE Microbiology Routine Vaginal itching Dysuria Ordered: 01/02/2024 [facility] Work Phone: Comment on above: Ordered: 01/02/2024 BACTERIAL VAGINOSIS NAAT BACTERI AL VAGINOSIS NAAT Lab Routine Vaginal itching Dysuria Ordered: 01/02/2024 [facility] Work Phone: Comment on above: Ordered: 01/02/2024 BUN/Creatinine ratio [facility] BUN/Creatinine ratio [facility] BUN/Creatinine ratio [facility] BUN/Creatinine ratio [facility] BUN/Creatinine ratio [facility] BUN/Creatinine ratio [facility] BUN/Creatinine ratio [facility] Calcium [Mass/volume ] in Serum or Plasma [facility] Calcium [Mass/volume ] in Serum or Plasma [facility] Calcium [Mass/volume ] in Serum or Plasma [facility] Calcium [Mass/volume ] in Serum or Plasma [facility] Calcium [Mass/volume ] in Serum or Plasma [facility] Calcium [Mass/volume ] in Serum or Plasma [facility] Calcium [Mass/volume ] in Serum or Plasma [facility] JOLANTA/TRICHOMONAS NAAT JOLANTA /TRICHOMONAS NAAT Lab Routine Vaginal itching Dysuria Ordered: 01/02/2024 [facility] Work Phone: Comment on above: Ordered: 01/02/2024 Carbon dioxide, tota l [Moles/volume] in Serum or Plasma [facility] Carbon dioxide, tota l [Moles/volume] in Serum or Plasma [facility] Carbon dioxide, tota l [Moles/volume] in Serum or Plasma [facility] Carbon dioxide, tota l [Moles/volume] in Serum or Plasma [facility] Carbon dioxide, tota l [Moles/volume] in Serum or Plasma [facility] Carbon dioxide, tota l [Moles/volume] in Serum or Plasma [facility] Carbon dioxide, tota l [Moles/volume] in Serum or Plasma [facility] Chlamydia trachomatis+Neisseria gonorrhoeae DNA [Presence] in Unspecified specimen by NELL with probe detection GONORRHEA/CHLAMYDIA NAAT Lab Routine Vaginal itching Dysuria Ordered: 01/02/2024 [facility] Work Phone: Comment on above: Ordered: 01/02/2024 Chloride [Moles/volu me] in Serum or Plasma [facility] Chloride [Moles/volu me] in Serum or Plasma [facility] Chloride [Moles/volu me] in Serum or Plasma [facility] Chloride [Moles/volu me] in Serum or Plasma [facility] Chloride [Moles/volu me] in Serum or Plasma [facility] Chloride [Moles/volu me] in Serum or Plasma [facility] Chloride [Moles/volu me] in Serum or Plasma [facility] Comprehensive metabo lic 2000 panel - Serum or Plasma COMP METABOLIC PANEL Lab Routine Essential hypertension, benign 11/13/2023 9:31 AM EST [facility] Work Phone: COVID & INFLUENZA A/ B & RSV NAAT, ROUTINE [facility] Work Phone: Creatinine [Moles/volume] in Serum or Plasma [facility] Creatinine [Moles/volume] in Serum or Plasma [facility] Creatinine [Moles/volume] in Serum or Plasma [facility] Creatinine [Moles/volume] in Serum or Plasma [facility] Creatinine [Moles/volume] in Serum or Plasma [facility] Creatinine [Moles/volume] in Serum or Plasma [facility] Creatinine [Moles/volume] in Serum or Plasma [facility] CREATININE, 24 HOUR URINE CREATININE, 24 HOUR URINE Lab Routine Abnormal results of thyroid function studies Ordered: 11/11/2024 [facility] Comment on above: Ordered: 11/11/2024 End: 02-02-2026 DBT Breast - bilateral screening LAURO SCREENING W BRAIN Radiology Routine Encounter for screening mammogram for breast cancer 1 Occurrences starting 01/03/2025 until 02/02/2026 [facility] Work Phone: Comment on above: 1 Occurrences starting 01/03/2025 until 02/02/2026 End: 02-19-2023 ECG COMPLETE ECG COMPLETE ECG Routine Uncontrolled hypertension Palpitations 1 Occurrences starting 02/19/2022 until 02/19/2023 [facility] Work Phone: Comment on above: 1 Occurrences starting 02/19/2022 until 02/19/2023 End: 02-19-2023 Echocardiography ECHO Cardiology Routine Uncontrolled hypertension Palpitations 1 Occurrences starting 02/19/2022 until 02/19/2023 [facility] Work Phone: Comment on above: 1 Occurrences starting 02/19/2022 until 02/19/2023 End: 12-21-2020 FL Greater Than 1 Hour FL Greater Than 1 Hour Imaging Routine Once for 1 Occurrences starting 12/21/2020 until 12/21/2020 [facility] Work Phone: Comment on above: Once for 1 Occurrences starting 12/22/19 21 until 12/21/2020 FL Greater Than 1 Hour FL Greate r Than 1 Hour Imaging Routine 12/21/2020 3:01 PM EDT [facility] Work Phone: Glucose [Mass/volume ] in Serum or Plasma [facility] Glucose [Mass/volume ] in Serum or Plasma [facility] Glucose [Mass/volume ] in Serum or Plasma [facility] Glucose [Mass/volume ] in Serum or Plasma [facility] Glucose [Mass/volume ] in Serum or Plasma [facility] Glucose [Mass/volume ] in Serum or Plasma [facility] Glucose [Mass/volume ] in Serum or Plasma [facility] Glucose [Mass/volume ] in Serum or Plasma GLUCOSE, BLOOD (POC) Lab Routine Type 2 diabetes mellitus with hyperosmolarity without coma, with long-term current use of insulin (HCC) Uncontrolled type 2 diabetes mellitus with hyperglycemia (HCC) Ordered: 04/18/2025 [facility] Work Phone: Comment on above: Ordered: 04/18/2025 Hemoglobin A1c/Hemoglobin.total in Blood HGB A1C Lab Routine Uncontrolled type 2 diabetes mellitus with hyperglycemia (HCC) 02/19/2022 12:38 PM EDT [facility] Work Phone: Lipid 1996 panel - S chayo or Plasma LIPID PANEL BASIC Lab Routine Essential hypertension, benign 11/13/2023 9:31 AM EST [facility] Work Phone: Measurement of renal function [facility] Measurement of renal function [facility] Measurement of renal function [facility] Measurement of renal function [facility] Measurement of renal function [facility] Measurement of renal function [facility] Measurement of renal function [facility] End: 03-04-2025 MG Breast Screening LAURO SCREENING Radiology Routine Encounter for screening mammogram for breast cancer 1 Occurrences starting 02/03/2024 until 03/04/2025 [facility] Work Phone: Comment on above: 1 Occurrences starting 02/03/2024 until 03/04/2025 Oxygen therapy [[facility]] Initiate Oxygen Therapy Protocol Respiratory Care Routine Daily until discontinued starting 12/21/2020 [facility] Work Phone: Comment on above: Daily until discontinued starting 2020 Patient Education Booklet - [facility] Stroke ED - Living After Stroke Booklet - Understanding Stroke [facility] Work Phone: Patient referral [facility] Work Phone: POCT glucose [facility] Work Phone: Comment on above: 4X Daily (AC & HS) until discontinued st arting 12/21/2020 As Needed until disc ontinued starting 12/21/2020 4X Daily (AC & HS) u ntil discontinued starting 12/24/2020 Potassium [Moles/vol ume] in Serum or Plasma [facility] Potassium [Moles/vol ume] in Serum or Plasma [facility] Potassium [Moles/vol ume] in Serum or Plasma [facility] Potassium [Moles/vol ume] in Serum or Plasma [facility] Potassium [Moles/vol ume] in Serum or Plasma [facility] [facility] Potassium [Moles/vol ume] in Serum or Plasma [facility] Potassium [Moles/vol ume] in Serum or Plasma [facility] ROUTINE FLU A/B + RSV [facility] Work Phone: Comment on above: Ordered: 06/26/2023 SARS-CoV-2 (COVID-19 ) RNA [Presence] in Respiratory specimen by NELL with probe detection [facility] Work Phone: Comment on above: Ordered: 06/26/2023 End: 04-25-2023 Screening mammography bi 2-view breast inc cad LAURO SCREENING Radiology Routine Encounter for screening mammogram for breast cancer 1 Occurrences starting 03/26/2022 until 04/25/2023 [facility] Work Phone: Comment on above: 1 Occurrences starting 03/26/2022 until 04/25/2023 Sodium [Moles/volume ] in Serum or Plasma [facility] Sodium [Moles/volume ] in Serum or Plasma [facility] Sodium [Moles/volume ] in Serum or Plasma [facility] Sodium [Moles/volume ] in Serum or Plasma [facility] Sodium [Moles/volume ] in Serum or Plasma [facility] Sodium [Moles/volume ] in Serum or Plasma [facility] Sodium [Moles/volume ] in Serum or Plasma [facility] Urea nitrogen [Mass/volume] in Serum or Plasma [facility] Urea nitrogen [Mass/volume] in Serum or Plasma [facility] Urea nitrogen [Mass/volume] in Serum or Plasma [facility] Urea nitrogen [Mass/volume] in Serum or Plasma [facility] Urea nitrogen [Mass/volume] in Serum or Plasma [facility] Urea nitrogen [Mass/volume] in Serum or Plasma [facility] Urea nitrogen [Mass/volume] in Serum or Plasma [facility] URINE FREE CORTISOL BY LC-MS/MS URINE FREE CORTISOL BY LC-MS/MS Lab Routine Abnormal results of thyroid function studies Ordered: 11/11/2024 [facility] Comment on above: Ordered: 11/11/2024 End: 02-19-2023 US CAROTID ARTERIES [facility] US CAROTID ARTERIES [facility] Vascular Lab Routine Uncontrolled hypertension Palpitations 1 Occurrences starting 02/19/2022 until 02/19/2023 [facility] Work Phone: Comment on above: 1 Occurrences starting 02/19/2022 until 02/19/2023 End: 02-19-2023 US RENAL ARTERY [facility] US RENAL ARTERY [facility] Vascular Lab Routine Uncontrolled hypertension Palpitations 1 Occurrences starting 02/19/2022 until 02/19/2023 [facility] Work Phone: Comment on above: 1 Occurrences starting 02/19/2022 until 02/19/2023 End: 03-01-2023 XR ANKLE GENERAL 3V AP/LAT/OBL LEFT XR ANKLE GENERAL 3V AP/LAT/OBL LEFT Radiology Routine Closed fracture of distal end of left fibula, unspecified fracture morphology, initial encounter 1 Occurrences starting 01/30/2022 until 03/01/2023 [facility] Work Phone: Comment on above: 1 Occurrences starting 01/30/2022 until 03/01/2023 [facility] Immunizations Immunization Date Immunization Notes Care Provider Nikia moore 07-12-2018 influenza virus vacc ine, unspecified formulation Kathryn Rivero [employer] Work Phone: [facility] Payers Date Payer Category Payer Self-pay [id number] 2023 Medicaid [id number] 2021 Medicare UHC MEDICARE UHC DUAL COMPLETE HMO SNP [id number] 2021-Present [phone] [address] [place] [address] Medicare [id number] 2021 Medicare [id number] 2021 Medicare (Managed Care) 1.2. [id number] 2021 [facility] [id number] 2020 Medicare [id number] 2020 Medicaid MEDICAID [facility] MEDICAID [id number] 2020-Present [phone] [address] [address] Medicaid [id number] 2020 Medicaid [id number]. [id number] 1955 Unknown [id number] 2.16.840.1.050943.3.579.2.6 27 Medicare [id number] Unknown [id number] Unknown [id number] 2.16.840.1.085815.3.579.2.4 62 Unknown [id number] 2.16.840.1.399357.3.579.2.4 62 Unknown [id number] 2.16.840.1.645109.3.579.2.4 62 Unknown [id number] 2.16.840.1.254067.3.579.2.4 62 Unknown [id number] 2.16.840.1.127591.3.579.2.4 62 Unknown [id number] 2.16.840.1.763660.3.579.2.4 62 Unknown [id number] 2.16.840.1.951982.3.579.2.4 62 Unknown [id number] 2.16.840.1.740171.3.579.2.4 62 Unknown [id number] 2.16.840.1.269163.3.579.2.4 62 Unknown [id number] 2.16.840.1.212853.3.579.2.4 62 Unknown [id number] 2.16.840.1.074244.3.579.2.4 62 Unknown [id number] 2.16.840.1.639527.3.579.2.4 62 Unknown [id number] 2.16.840.1.496254.3.579.2.4 62 Unknown [id number] 2.16.840.1.951323.3.579.2.4 62 Unknown [id number] 2.16.840.1.020295.3.579.2.4 62 Unknown [id number] 2.16.840.1.103387.3.579.2.4 62 Unknown [id number] 2.16.840.1.628168.3.579.2.4 62 Unknown [id number] 2.16.840.1.753482.3.579.2.4 62 Unknown [id number] 2.16.840.1.726251.3.579.2.4 62 Unknown [id number] 2.16.840.1.743348.3.579.2.4 62 Unknown [id number] 2.16.840.1.976896.3.579.2.4 62 Unknown [id number] 2.16.840.1.719862.3.579.2.4 62 Unknown [id number] 2.16.840.1.705422.3.579.2.4 62 Unknown [id number] 2.16.840.1.060903.3.579.2.4 62 Unknown [id number] 2.16.840.1.796010.3.579.2.4 62 Unknown [id number] 2.16.840.1.456287.3.579.2.4 62 Unknown [id number] 2.16.840.1.496425.3.579.2.4 62 Unknown [id number] 2.16.840.1.606291.3.579.2.4 62 Unknown [id number] 2.16.840.1.101623.3.579.2.4 62 Unknown [id number] 2.16.840.1.470538.3.579.2.4 62 Unknown [id number] 2.16.840.1.078490.3.579.2.4 62 Unknown [id number] 2.16.840.1.682756.3.579.2.4 62 Unknown [id number] 2.16.840.1.036808.3.579.2.4 62 Social History Date Type Detail Facility Start: 01-11-2018 End: 12-25-2020 Tobacco smoking status NHIS Current every day smoker [facility] Start: 11-02-2002 End: 11-02-2022 History of tobacco use Cigarette Smoker [facility] Work Phone: Start: 12-25-2020 End: 03-18-2023 Cigarettes smoked current (pack per day) - Reported [facility] Work Phone: Start: 12-25-2020 End: 05-25-2024 Tobacco use and exposure Never used [employer] Work Phone: Start: 12-25-2020 Alcohol intake Ex-drinker (finding) [employer] Work Phone: Start: 1955 Sex Assigned At Not on file S [employer] Work Phone: Start: 01-13-2022 End: 02-28-2022 Exposure to SARS-CoV-2 (event) Not sure [employer] Work Phone: Start: 10-23-2021 End: 04-18-2025 Alcohol intake Current drinker of alcohol (finding) [facility] Start: 10-15-2012 End: 09-10-2022 Tobacco Comment 20+ years smoking [facility] Start: 12-30-2020 End: 07-27-2023 Tobacco smoking status VTIS Unknown if ever smoked [facility] Start: 12-28-2020 None [facility] Start: 12-28-2020 Marijuana [facility] Start: 12-28-2020 With Family [facility] Start: 12-30-2020 Cigarettes [facility] Start: 1955 Sex Assigned At Female [facility] Start: 12-10-2022 End: 05-25-2024 Tobacco smoking status NHIS Ex-smoker [facility] Work Phone: Start: 11-02-2002 End: 11-02-2022 History of tobacco use Current smoker [facility] Work Phone: Start: 03-18-2023 End: 04-30-2023 Tobacco use panel [facility] Work Phone: Start: 08-29-2012 Adult Depression Screening Assessment 0 [facility] Work Phone: Tobacco Nicotine Use: Positive smoking history. Type: Cigarettes. [facility] Tobacco smoking status [facility] Has the [employer], [employer], oil, or water [employer] threatened to shut off services in your home in past 12Mo No [facility] Are you now , , , , never or living with a partner? [facility] How often to you hav e a drink containing alcohol? Never [facility] Do you feel stress - tense, restless, nervous, or anxious, or unable to sleep at night because your mind is troubled all the time - these days [OSQ] Not at all [facility] (I/We) worried whether (my/our) food would run out before (I/we) got money to buy more. Never true [facility] Start: 12-28-2024 Sex Female (finding) [facility] NEGATED: Highlighted row Not [facility] Medical Equipment Procedure Code Equipment Code Equipment Origin al Text Equipment Identifier Dates Dilation and curettage SEALANT,FLOSEAL HEMOSTATIC 5ML FDA Start: 07-26-2024 Dilation and curettage SEALANT,FLOSEAL HEMOSTATIC 5ML FDA Start: 07-26-2024 Dilation and curettage SEALANT,FLOSEAL HEMOSTATIC 5ML [facility] Start: 07-26-2024 [id number], [id number], [id number], [id number], [id number], [id number], [id number], [id number], [id number] Start: 06-24-2013 End: 06-15-2024 Comment on above: [...] Assessment Result Facility 12-28-2024 Functional status Ambulates [facility] Work Phone: 11-25-2023 Functional Status Ambulation in Room [facility] 07-03-2023 Functional status Ambulates;Bath room Privilege [facility] Work Phone: 11-04-2022 Functional status Ambulates;Up ad sandi [facility] Work Phone: 10-25-2014 Are you deaf, or do you have serious difficulty hearing No 10/25/2014 5:51 PM Susan Manzano MA No [facility] 10-25-2014 Are you blind, or do you have serious difficulty seeing, even when wearing glasses No 10/25/2014 5:51 PM Susan Manzano MA No [facility] 10-25-2014 Do you have serious difficulty walking or climbing stairs No 10/25/2014 5:51 PM Susan Manzano MA No [facility] 10-25-2014 Do you have difficul ty dressing or bathing No 10/25/2014 5:51 PM Susan Manzano MA [facility] 10-25-2014 Because of a physica l, mental, or emotional condition, do you have difficulty doing errands alone such as visiting a physician's office or shopping No 10/25/2014 5:51 PM Susan Manzano MA No [facility] Mental Status Date Assessment Result Facility 04-15-2025 Cognitive function Level Of Cons ciousness Awake;Follows Commands [facility] Work Phone: 12-28-2024 Cognitive function Level Of Cons ciousness Awake;Alert;Appropriate;Fol lows Commands [facility] Work Phone: 12-28-2024 Cognitive function Voice/Name [facility] Work Phone: 11-25-2023 Mental Status Oriented x 4 [facility] 07-03-2023 Cognitive function Voice/Name [facility] Work Phone: 11-04-2022 Cognitive function Voice/Name Tomasz Hassan [facility] Work Phone: 10-25-2014 Because of a physica l, mental, or emotional condition, do you have serious difficulty concentrating, remembering, or making decisions No 10/25/2014 5:51 PM Susan Manzano MA No [facility] Clinical Notes 10-12-2018 to 05-15-2025 Telephone Encounter - Lisa Aparicio RN - 05/15/2025 9:16 AM EDTTelephone Encounter - Lisa Aparicio RN - 05/15/2025 9:16 AM EDTTelephone Encounter - Gini Martinez LPN - 04/27/2025 1:51 PM EDT Note Date & Type Note Facility 05-15-2025 Telephone encounter Note Patient calls and states that she has 3 month follow up scheduled with provider on 05/31/2025. Patient asking if provider wants labs done prior to appointment? Patient is also needing a refill on Plavix. The patient has been identified by name and date of : Yes Caregiver verified no other encounters exist for this prescription request: Yes Caregiver confirmed with patient/requestor that no other refills are due, in the near future, with this provider at this time: Yes The last office visit in the department: 04/18/2025 Does the patient have a future office visit with this provider/department: Yes 05/31/2025 Requested Prescriptions Pending Prescriptions Disp Refills clopidogrel (PLAVIX) 75 mg tablet 90 tablet 1 Sig: Take 1 tablet by mouth once daily. Lisa Aparicio RN May 15, 2025 9:17 AM [facility] 05-15-2025 Miscellaneous Notes Patient calls and states that she has 3 month follow up scheduled with provider on 05/31/2025. Patient asking if provider wants labs done prior to appointment? Patient is also needing a refill on Plavix. The patient has been identified by name and date of : Yes Caregiver verified no other encounters exist for this prescription request: Yes Caregiver confirmed with patient/requestor that no other refills are due, in the near future, with this provider at this time: Yes The last office visit in the department: 04/18/2025 Does the patient have a future office visit with this provider/department: Yes 05/31/2025 Requested Prescriptions Pending Prescriptions Disp Refills clopidogrel (PLAVIX) 75 mg tablet 90 tablet 1 Sig: Take 1 tablet by mouth once daily. Lisa Aparicio RN May 15, 2025 9:17 AM documented in this encounter [facility] 04-27-2025 Telephone encounter Note Line busy will need to try back again. [facility] 04-27-2025 Miscellaneous Notes Line busy will need to try back again. ----- Message from Liliana Bennett APRN.CNP sent at 04/27/2025 12:13 PM EDT ----- Please call deonte and ask how she is feeling, is she having any fevers, wounds/skin issues, urinary symptoms? I am going to order a urinalysis and culture for her to make sure she doesn't have a UTI. Her WBC is elevated as well as neutrophils which often indicates a bacterial infection. I want her to come to the lab and give urine specimen and also have recheck of the labs. Thank you documented in this encounter [facility] 04-27-2025 Telephone encounter Note ----- Message from Liliana Bennett APRN.BILLBOARD POSTER sent at 04/27/2025 12:13 PM EDT ----- Please call deonte and ask how she is feeling, is she having any fevers, wounds/skin issues, urinary symptoms? I am going to order a urinalysis and culture for her to make sure she doesn't have a UTI. Her WBC is elevated as well as neutrophils which often indicates a bacterial infection. I want her to come to the lab and give urine specimen and also have recheck of the labs. Thank you [facility] 04-19-2025 Telephone encounter Note The following approved medication requests have been transmitted electronically. Requested Prescriptions Signed Prescriptions Disp Refills ARMOUR THYROID 30 mg tablet 36 tablet 1 Sig: Take 1 tablet by mouth every Thursday, Thursday, and Thursday. In the morning. (Take this is addition to the 120 mg armor thyroid) Authorizing Provider: LAURIE SANDERSON DO [facility] 04-19-2025 Telephone encounter Note The following approved medication requests have been transmitted electronically. Requested Prescriptions Signed Prescriptions Disp Refills ARMOUR THYROID 30 mg tablet 36 tablet 1 Sig: Take 1 tablet by mouth every Thursday, Thursday, and Thursday. In the morning. (Take this is addition to the 120 mg armor thyroid) Authorizing Provider: LAURIE SANDERSON DO [facility] 04-19-2025 Miscellaneous Notes The following approved medication requests have been transmitted electronically. Requested Prescriptions Signed Prescriptions Disp Refills ARMOUR THYROID 30 mg tablet 36 tablet 1 Sig: Take 1 tablet by mouth every Thursday, Thursday, and Thursday. In the morning. (Take this is addition to the 120 mg armor thyroid) Authorizing Provider: LAURIE SANDERSON DO The following approved medication requests have been transmitted electronically. Requested Prescriptions Signed Prescriptions Disp Refills ARMOUR THYROID 30 mg tablet 36 tablet 1 Sig: Take 1 tablet by mouth every Thursday, Thursday, and Thursday. In the morning. (Take this is addition to the 120 mg armor thyroid) Authorizing Provider: LAURIE SANDERSON DO Pt reports she is out of this medication and needs it sent to [facility]. Sending to [facility] for Dr. Farrar. Last ov in pcp office: 04/18/25 Next ov in pcp office: 05/31/25 Last TSH @ [facility] on 12/15/24: 0.836 (0.300-4.200) Last T4 free direct @ [facility] on 12/15/24: 0.80 (0.76-1.46) documented in this encounter [facility] 04-19-2025 Telephone encounter Note Pt reports she is out of this medication and needs it sent to [facility]. Sending to [facility] for Dr. Farrar. Last ov in pcp office: 04/18/25 Next ov in pcp office: 05/31/25 Last TSH @ [facility] on 12/15/24: 0.836 (0.300-4.200) Last T4 free direct @ [facility] on 12/15/24: 0.80 (0.76-1.46) [facility] 04-18-2025 History of Presen t illness Narrative This is a 69 year old female who presents today with: Hyperglycemia, recent ED visit, anxiety over diabetes management HISTORY OF PRESENT ILLNESS: Diabetes Mellitus: - Recent ED visit due to hyperglycemia; received fast acting insulin and fluids. - Concerns about fluctuating blood glucose levels; reports feeling tired and wiped out by the regimen. - Recent increase in Trulicity to 1.5 mg weekly at last visit, but just that dose recently - Hesitant to increase Lantus dosage beyond 2 units due to previous management by Dr. Farrar. This provider went over her dose history with her, showing 4-6unit increases at month-3month increments - Interested in using a continuous glucose monitor (CGM) as she has extreme anxiety over her blood sugars and is terried of doing too much and being low and living alone - discussed labs in hospital, vital signs Hyponatremia: - Chronic low sodium levels; managed by Dr. Overton, a hypertension specialist in [place] who she sees annually and recently saw with no changes - Recent sodium level was low during ED visit Hyperkalemia: - Recent high potassium level during ED visit. -she's on spironolactone twice daily - Consuming electrolyte powders in drinks which contain potassium. States she did have a racing heart at the hospital and very anxious Leukocytosis WBC above 20, she denies any burning, frequency with urination Denies any fevers, body aches ER visit following Dr Isaac visit: Discharge Summary Note Author Berry Waldrop [facility] Note Date/Time April 15, 2025 7:16pm Patient case was signed out to me to follow-up on a repeat BMP which was obtained and reviewed which showed a sodium 130, calcium normal 3.5, creatinine was noted be 0.69. Patient anion gap now normal at 15. On reevaluation of the patient she is feeling better she would like to go home at this point time. Patient was advised to keep a close eye on her blood pressure as she states that her blood pressure been running normal. She was advised to call her doctor if it is persistently running high. She is advised to use the Zofran that she already has at home as prescribed as well. She is encouraged return with worsening symptoms or other concerns. She is agreeable this plan as well as her family bedside all question concerns answered she was discharged home in stable condition. WBC 21, plt 451, Na 127, k+5.2, glucose 364, beta hydroxybutric acid 0.4, UA showed 1000 glucose and 50 ketones, negative nitrates, 1+ bacteria, blood and protein + Arterial blood gas concern for possible DKA pH 7.58, co2 21, p02 89, 98%RA She did consult with endocrinology but at last visit said she preferred not to go back This provider attempted to increase lantus with last lab results and patient refused wanting Dr Farrar's input at her next visit BS 169 this morning. POC in todays office visit following visit per her request, 280. Current diabetic meds: Lantus 20units daily in morning Trulicity 1.5mg weekly Glimeperide 2mg twice daily with meals HTN Controlled usually, was elevated at technical professional and ER visit Likely also triggered by anxiety over diabetes management PAST MEDICAL HISTORY: PAST MEDICAL HISTORY Diagnosis [...] Antibiotics) MEDICATIONS Current Outpatient Medications Medication Sig blood sugar diagnostic (BLOOD GLUCOSE TEST) test strip Test blood sugar(s) 4 times daily. Dx: Type 2 DM - Controlled E11.9 Insulin: Yes Lancets Test blood sugar(s) 4 times daily. Dx: Type 2 DM - Controlled E11.9 Insulin: Yes insulin glargine (LANTUS SOLOSTAR U-100 INSULIN) 100 unit/mL (3 mL) Inject 25 Units subcutaneously daily at bedtime. ondansetron orally disintegrating (ZOFRAN ODT) 4 mg [...] 2 DM - Uncontrolled E11.65 Insulin: Yes Insulin [place], Disposable, (BD ULTRA-FINE MARIA T PEN NEEDLE) 32 gauge x Use one needle for each dose. 1/day. blood sugar diagnostic (BLOOD GLUCOSE TEST) test strip Test blood sugar(s) 2 times daily. Dx: Type 2 DM - Uncontrolled E11. Insulin: No spironolactone (ALDACTONE) 25 mg tablet [...] date: 11/02/2002 Quit date: 11/02/2022 Years since quittin.4 Smokeless tobacco: Never Substance Use Topics Alcohol use: Yes Drug use: Yes Types: Marijuana REVIEW OF SYSTEMS Denies polydipsia, polyuria Denies fevers +dizziness with hyperglycemia, left eye vision changes if high 300s EXAM: There were no vitals taken for this visit. PHYSICAL EXAM: General Appearance: Well appearing, alert, in no acute distress, well-hydrated, well nourished..disheveled, tearful and anxious over diabetes management throughout visit Lungs: Lungs clear to auscultation. No wheezing, rhonchi, rales.. Heart: regular rate and rhythm, murmur present ASSESSMENT/PLAN: 1. Type 2 diabetes mellitus with hyperosmolarity without coma, with long-term current use of insulin (HCC) - ICD9: 250.20, V58.67, ICD10: E11.00, Z79.4 (primary diagnosis) - Uncontrolled - Barriers to control: compliance, understanding reasons for medication changes, trust in other providers 2. Uncontrolled type 2 diabetes mellitus with hyperglycemia (HCC) - ICD9: 250.02, ICD10: E11.65 3. Encounter for diabetes education - ICD9: V65.49, ICD10: Z71.89 - Increase Insulin glargine (Lantus/Basaglar/Toujeo) to 25units daily in the morning, this was never started when ordered last visit. Much education and reassurance provided by this provider and her friend/family that is with her. 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 Brought in log from home and she's checking her blood sugar no less than 4 times per day, she is on two injectable medications as well as oral hypoglycemics. She's had ER visits for hyperglycemia and fears hypoglycemia. - DEXCOM G6 TRANSMITTER DEVICE - DEXCOM G6 SENSOR DEVICE - COMPLETE BLOOD COUNT AND DIFFERENTIAL - COMPREHENSIVE METABOLIC PANEL - GLUCOSE, BLOOD (POC) 280 - follow up with Dr Farrar in May, also on wait list -follow up with endocrinology if earlier regarding control - update office if she needs anything in between 4. Situational anxiety - ICD9: 300.09, ICD10: F41.8 - management of diabetes regimen and requesting dexcom to ease her regimen and anxiety 5. Obesity, Class II, BMI 35-39.9 - ICD9: 278.00, ICD10: E66.812 - needs to get diabetes under control - believes she's only eating what she's supposed to. Offered hyperbaric technician but she knows she is eating right. She will see what Dr Johnson's office says and the nutritional guidance they provide 6. Essential hypertension, benign - ICD9: 401.1, ICD10: I10 - Controlled - Recommend regular aerobic exercise - ALBUMIN/CREATININE RATIO, URINE - COMPLETE BLOOD COUNT AND DIFFERENTIAL - COMPREHENSIVE METABOLIC PANEL Discussed treatment plan and patient voices understanding. Patient's questions answered appropriately. Medications and potential side effects were discussed and patient voices understanding. I spent a total of 60 minutes on the date of the service which included preparing to see the patient, [id number] patient care, completing clinical documentation, obtaining and/or reviewing separately obtained history, performing a medically appropriate examination, counseling and educating the patient/family/caregiver, ordering medications, tests, or procedures, communicating results to the patient/family/caregiver, and care coordination (not separately reported). Return to the office as scheduled or as needed for worsening/no improvement. Liliana Bennett APRN.[employer] Recording using Cubby software for draft documentation of the visit was discussed with the patient/authorized front office representative; all questions welcomed and answered. Patient/authorized front office representative agreed to proceed documented in this encounter [facility] 04-18-2025 Note HNO ID: [id number] Author: LILIANA BENNETT APRN.[employer] Service: ? Author Type: Nurse Practitioner Type: Progress Notes Filed: 04/18/2025 13:53 Note Text: This is a 69 year old female who presents today with: Hyperglycemia, recent ED visit, anxiety over diabetes management HISTORY OF PRESENT ILLNESS: Diabetes Mellitus: - Recent ED visit due to hyperglycemia; received fast acting insulin and fluids. - Concerns about fluctuating blood glucose levels; reports feeling tired and wiped out by the regimen. - Recent increase in Trulicity to 1.5 mg weekly at last visit, but just that dose recently - Hesitant to increase Lantus dosage beyond 2 units due to previous management by Dr. Farrar. This provider went over her dose history with her, showing 4-6unit increases at month-3month increments - Interested in using a continuous glucose monitor (CGM) as she has extreme anxiety over her blood sugars and is terried of doing too much and being low and living alone - discussed labs in hospital, vital signs Hyponatremia: - Chronic low sodium levels; managed by Dr. Overton, a hypertension specialist in [place] who she sees annually and recently saw with no changes - Recent sodium level was low during ED visit Hyperkalemia: - Recent high potassium level during ED visit. -she's on spironolactone twice daily - Consuming electrolyte powders in drinks which contain potassium. States she did have a racing heart at the hospital and very anxious Leukocytosis WBC above 20, she denies any burning, frequency with urination Denies any fevers, body aches ER visit following Dr Isaac visit: Discharge Summary Note Author Berry Waldrop [facility] Note Date/Time April 15, 2025 7:16pm Patient case was signed out to me to follow-up on a repeat BMP which was obtained and reviewed which showed a sodium 130, calcium normal 3.5, creatinine was noted be 0.69. Patient anion gap now normal at 15. On reevaluation of the patient she is feeling better she would like to go home at this point time. Patient was advised to keep a close eye on her blood pressure as she states that her blood pressure been running normal. She was advised to call her doctor if it is persistently running high. She is advised to use the Zofran that she already has at home as prescribed as well. She is encouraged return with worsening symptoms or other concerns. She is agreeable this plan as well as her family bedside all question concerns answered she was discharged home in stable condition. WBC 21, plt 451, Na 127, k+5.2, glucose 364, beta hydroxybutric acid 0.4, UA showed 1000 glucose and 50 ketones, negative nitrates, 1+ bacteria, blood and protein + Arterial blood gas concern for possible DKA pH 7.58, co2 21, p02 89, 98%RA She did consult with endocrinology but at last visit said she preferred not to go back This provider attempted to increase lantus with last lab results and patient refused wanting Dr Farrar's input at her next visit BS 169 this morning. POC in todays office visit following visit per her request, 280. Current diabetic meds: Lantus 20units daily in morning Trulicity 1.5mg weekly Glimeperide 2mg twice daily with meals HTN Controlled usually, was elevated at technical professional and ER visit Likely also triggered by anxiety over diabetes management PAST MEDICAL HISTORY: PAST MEDICAL HISTORY Diagnosis [...] Antibiotics) MEDICATIONS Current Outpatient Medications Medication Sig blood sugar diagnostic (BLOOD GLUCOSE TEST) test strip Test blood sugar(s) 4 times daily. Dx: Type 2 DM - Controlled E11.9 Insulin: Yes Lancets Test blood sugar(s) 4 times daily. Dx: Type 2 DM - Controlled E11.9 Insulin: Yes insulin glargine (LANTUS SOLOSTAR U-100 INSULIN) 100 unit/mL (3 mL) Inject 25 Units subcutaneously daily at bedtime. ondansetron orally disintegrating (ZOFRAN ODT) 4 mg disintegrating tablet Take 1 tablet by mouth every 8 hours as needed for nausea/vomiting. atorvastatin (LIPITOR) 40 mg tablet Take 1 tablet by mouth once malcolm (more content not included)... [facility] 04-18-2025 Instructions Liliana Bennett APRN.[facility] - 04/18/2025 8:19 AM EDT Get labs done on way out today Start the 25 units of lantus daily Continue monitoring and logging your blood sugars Watch drinking the electrolytes packets specifically potassium in it Get your mammogram scheduled documented in this encounter [facility] 04-17-2025 Telephone encounter Note FYI for appt previously scheduled for 04/18/2025. Patient calls to review care advice for high blood sugars with concern that she is not able to get blood sugar below 260. Reviewed diet, medications, and when to return to ER. Patient reports that she is still taking diabetic medications as instructed to do by Dr. Farrar. She did not increase long acting insulin to 25 units and is not taking it in the evening. Patient reports that she was scared to make the adjustments without talking with Dr. Farrar first. Patient emotional as she is not sure what to do it terms of diet as she is doing everything as instructed and she is not interested in going back to the ER. Triage encounter from 04/16/2025 as well. Josie Starks RN [facility] 04-17-2025 Miscellaneous Notes FYI for appt previously scheduled for 04/18/2025. Patient calls to review care advice for high blood sugars with concern that she is not able to get blood sugar below 260. Reviewed diet, medications, and when to return to ER. Patient reports that she is still taking diabetic medications as instructed to do by Dr. Farrar. She did not increase long acting insulin to 25 units and is not taking it in the evening. Patient reports that she was scared to make the adjustments without talking with Dr. Farrar first. Patient emotional as she is not sure what to do it terms of diet as she is doing everything as instructed and she is not interested in going back to the ER. Triage encounter from 04/16/2025 as well. Josie Starks RN documented in this encounter [facility] 04-16-2025 Telephone encounter Note Reason for Call: Elevated blood sugar Outcome: Patient was conferenced to Kia in Appointment Center for PCP scheduling within 24 hours and was advised to go to Urgent Care, if needed. Reason for Disposition [1] Blood glucose > 300 mg/dL (16.7 mmol/L) AND [2] uses insulin (e.g., insulin-dependent, all people with type 1 diabetes) [1] Blood glucose > 240 mg/dL (13.3 mmol/L) AND [2] Nurse discretion: Patient is not , but has recurrent elevated blood sugar after 04/15/25 ER visit. Answer Assessment - Initial Assessment Questions 1. BLOOD GLUCOSE: 213 at 0730 and 336 prior to call via one touch Verio 2. ONSET: see above 3. USUAL RANGE: below 150, it was 337 04/15/25, went to ER, she had IV Zofran and Reglan there, possible DKA. Patient stated she has experienced high blood sugars since starting Trulicity and they gave her 10 units of fast acting insulin in the ER yesterday. 4. KETONES: n/a 5. TYPE 1 or 2: 2 6. INSULIN: yes, 20 units long acting Lantus in am after eating; took today's dose at 0800 7. DIABETES PILLS: glimepiride taken this am 8. OTHER SYMPTOMS: recurrent nausea when she woke up this am, took Zofran at 0800 with relief, took a couple bites of baked potato, 3-4 bites of ham/cheese rollup, sips of coffee, bouillon and protein shake, forgetful a little bit, and a little bit dizzy which is normal for her when sugar is high 9. : n/a; postmenopausal Protocols used: Diabetes - High Blood [id number] [facility] 04-16-2025 Miscellaneous Notes Reason for Call: Elevated blood sugar Outcome: Patient was conferenced to Kia in Appointment Center for PCP scheduling within 24 hours and was advised to go to Urgent Care, if needed. Reason for Disposition [1] Blood glucose > 300 mg/dL (16.7 mmol/L) AND [2] uses insulin (e.g., insulin-dependent, all people with type 1 diabetes) [1] Blood glucose > 240 mg/dL (13.3 mmol/L) AND [2] Nurse discretion: Patient is not , but has recurrent elevated blood sugar after 04/15/25 ER visit. Answer Assessment - Initial Assessment Questions 1. BLOOD GLUCOSE: 213 at 0730 and 336 prior to call via one touch Verio 2. ONSET: see above 3. USUAL RANGE: below 150, it was 337 04/15/25, went to ER, she had IV Zofran and Reglan there, possible DKA. Patient stated she has experienced high blood sugars since starting Trulicity and they gave her 10 units of fast acting insulin in the ER yesterday. 4. KETONES: n/a 5. TYPE 1 or 2: 2 6. INSULIN: yes, 20 units long acting Lantus in am after eating; took today's dose at 0800 7. DIABETES PILLS: glimepiride taken this am 8. OTHER SYMPTOMS: recurrent nausea when she woke up this am, took Zofran at 0800 with relief, took a couple bites of baked potato, 3-4 bites of ham/cheese rollup, sips of coffee, bouillon and protein shake, forgetful a little bit, and a little bit dizzy which is normal for her when sugar is high 9. : n/a; postmenopausal Protocols used: Diabetes - High Blood [id number] documented in this encounter [facility] 04-15-2025 Discharge summary [facility] 04-15-2025 Discharge summary Note Date/Time April 15, 2025 7:16pm [facility] Medical Records Department [address] [place] [address] Emergency Department Summary 04/15/25 MR#: [id number] Acct: [id number] Name: DEONTE BLANCO Rep #:[id number] : 1955 69 From: Berry Waldrop MD PCP: Dr. Preet Farrar, DO Status:RE G ER Location: ED ADDENDUM by Dr. Juan Rivera DO on 04/15/25 at 1916 Patient case was signed out to me to follow-up on a repeat BMP which was obtained and reviewed which showed a sodium 130, calcium normal 3.5, creatinine was noted be 0.69. Patient anion gap now normal at 15. On reevaluation of the patient she is feeling better she would like to go home at this point time. Patient was advised to keep a close eye on her blood pressure as she states that her blood pressure been running normal. She was advised to call her doctor if it is persistently running high. She is advised to use the Zofran that she already has at home as prescribed as well. She is encouraged return with worsening symptoms or other concerns. She is agreeable this plan as well as her family bedside all question concerns answered she was discharged home in stable condition. 04/15/251914<Electronically signed by Juan Rivera DO> Cosigner Signature (if applicable): cc: Dr. Preet Farrar DO ~* Signed HPI History of Present Illness Chief Complaint: Hyperglycemia Informant: patient Onset/Context/Timing Onset: Today and Yesterday Context: Gradual Onset Timing: Continuous Current Severity: Mild Maximum Severity: Mild Narrative Narrative: 69-year-old female history of prior stroke and insulin-dependent diabetes. States her blood sugars been elevated yesterday as high as 337. Elevated today also. She started with nausea and vomiting yesterday. No diarrhea. No fever. Denies any dysuria urgency or frequency. No hematuria. No fever. No recent hospitalization. Prior similar symptoms: Yes Recent Illness/Hospitalization: No PFSH PFS Medical History Cardiology follow-up encounter History of [...] DAILY THYRO ID 12/18/20 12/27/24 06:00 History clopidogrel 75 mg tablet 75 mg PO DAILY BLOOD THINNER #30 11/04/22 12/22/24 Rx tabs carvedilol 6.25 mg tablet 6.25 mg PO BID 03/05/24 0410/22 06:00 History pantoprazole 40 mg tablet,delayed 40 mg PO DAILY #30 t abs 05/22/24 12/27/24 06:00 Rx release thyroid (pork) 30 mg tablet 30 mg PO MOWEFR 07/21/24 0 12/26/24 08:00 History (Kinney Thyroid) insulin glargine 100 unit/mL (3 20 unit subcut DAILY 0 12/12/24 12/26/24 10:00 History mL) subcutaneous pen (Lantus Solostar U-100 Insulin) spironolactone 25 mg tablet 25 mg PO BID 12/12/2411/28 20:00 History elderberry fruit 200 mg capsule 1,000 mg PO DAILY 11/2612/26/24 08:00 History atorvastatin 40 mg tablet 40 mg PO QDAY #90 tabs 01/26 Unknown Rx dulaglutide 0.75 mg/0.5 mL 0.75 mg subcut QWEEK Unknown History subcutaneous pen injector (Trulicity) glimepiride 2 mg tablet 2 mg PO BID 01/26/25 Unknown History dulaglutide 1.5 mg/0.5 mL 1.5 mg subcut QWEEK 04/15/25 Unknown History subcutaneous pen injector (Trulicity) Allergy/AdvReac Type Severity Reaction Status Date / Time metformin Allergy Severe Hives Verified 04/15/25 13:12 prednisone Allergy Intermediate Itching Verified 04/15/25 13:12 aspirin Allergy mouth Verified 04/15/25 13:12 swelling gluten Allergy Abd Verified 04/15/25 13:12 cramps/diarrhea ibuprofen Allergy mouth Verified 04/15/25 13:12 swelling Sulfa (Sulfonamide Allergy pt can't Verified 04/15/25 13:12 Antibiotics) remember Family History Mother Heart disease Alzheimers disease Father Heart disease Hypertension CAD (coronary artery disease) Myocardial infarction Thyroid disorder Diabetes Sister Cancer Surgical History History of total vaginal hysterectomy (TVH) History of esophagogastroduodenoscopy (EGD) Hx of colonoscopy [...] do you feel safe at home: Yes ROS ROS ED ROS Narrative Elevated blood sugar. Nausea vomiting. No fever. No dysuria. Constitutional Constitutional ED: Denies chills or fever(s) Eyes Eyes: Denies blurry vision ENT ENT ED: Denies ear pain Cardiovascular Cardiovascular: Denies chest pain Respiratory/Chest Respiratory/Chest: Denies cough or dyspnea Gastrointestinal Gastrointestinal: Reports nausea and vomiting; Denies abdominal pain, constipation, diarrhea or melena Genitourinary Genitourinary ED: Denies dysuria or hematuria Musculoskeletal Musculoskeletal: Denies arthralgias Integumentary Denies abscess or Abrasions Neurologic Neurologic: Denies headache(s) Psychiatric Psychiatric: Denies anxiety or depression Endocrine Endocrinology: Denies cold intolerance Hematologic/Lymphatic Hematologic/Lymphatic: Reports none Allergic/Immunologic Allergic/Immunologic ED: Denies mouth swelling, tongue swelling or urticaria EXAM Physical Exam Narrative Exam Narrative: 69-year-old female sitting upright in bed. Vital signs are stable afebrile. Does not look septic or toxic. No acute distress. Family member at bedside. HEENT exam pupils round react light. Moist mucous membranes. Neck nontender no JVD. No lymphadenopathy. Lungs clear to auscultation bilaterally. Heart regular rhythm no murmur rate about 75. Chest wall ribs nontender. Abdomen soft nontender. No peritoneal signs. Moving all 4 extremities. Nontender no edema. Normal strength. Normal range of motion. No rashes. No redness or warmth. Back nontender. Well-healed prior lumbar surgical incision. Neurologically she is awake alert. Answering questions following commands. Const Vital Signs: 04/15/25 13:11 04/15/25 13:41 04/15/25 14:18 Temperature 98.6 F Temperature Source Oral Pulse Rate 76 88 Respiratory Rate 18 16 Respiratory Effort Labored Respiratory Pattern Normal Blood Pressure 134/94 H 166/117 H Blood Pressure Mean 107 133 Pulse Ox 99 99 Oxygen Delivery Method Room Air Room Air 04/15/25 15:50 04/15/25 16:33 Temperature Temperature Source Pulse Rate 91 95 Respiratory Rate 15 16 Respiratory Effort Respiratory Pattern Blood Pressure 217/111 H 173/50 H Blood Pressure Mean 146 91 Pulse Ox 99 98 Oxygen Delivery Method Room Air Room Air Positive well nourished and well developed; Negative for cachectic, contracturesor unkempt General Appearance ED: well developed and NAD; Negative for unkempt, cachectic, contractures, cyanotic, diaphoretic or pallor Nutritional Appearance: Negative for cachectic HEENT Reports moist mucous membranes Negative for trauma or tenderness Eyes PERRL and EOMs intact bilaterally General Eye ED: Negative for pale conjunctiva or scleral icterus Neck no lymphadenopathy, supple and no JVD Chest Wall inspection of chest normal and palpation of chest normal Resp normal respiratory effort and clear to auscultation bilaterally Effort and Inspection: Negative for retractions Auscultation: Negative for rales, rhonchi, wheezes or diminished lung sounds Cardio regular rate, regular rhythm, S1 normal heart sound, S2 normal heart sound and no murmurs GI normal to inspection, nondistended, normoactive bowel sounds, non-tender, non-distended and no masses Auscultation: normoactive bowel sounds Palpation: soft; Negative for tender, guarding or rebound tenderness present Back/Spine no CVA tenderness General Back: Negative for CVA tenderness Cervical Spine: Negative for cervical spine tenderness Thoracic Spine / Upper Back: Negative for thoracic spinal tenderness or paraspinal muscle tenderness Lumbar Spine / Lower Back: Negative for lumbar spinal tenderness Extremity normal to inspection General Extremety ED: Negative for edema or tenderness General Extremity: Negative for edema Neuro CN's II-XII intact bilaterally Sensorium / Orientation: alert; Negative for orientation impaired, lethargic or stuporous Motor Exam: strength 5/5 throughout Psych mental status grossly normal Appearance: Negative for unkempt Mood & Affect: anxious Skin no rashes or lesions noted and no wounds General Skin Exam: Negative for jaundice or pallor Lesions: No lesion noted Rashes: No rashes noted Trauma: Negative for abrasion Wounds: Negative for wounds noted MDM MDM MDM Narrative Medical decision making narrative: 69-year-old diabetic female with elevated blood sugar 337. Nausea and vomiting. No diarrhea. No fever no dysuria. She will be given IV fluids. Screening labs will be obtained. Rule DKA. Treated with Zofran for nausea. Repeat exams last 1 done at 4:51 PM. Patient is resting comfortably. She is receiving a liter normal saline. After the saline bolus a repeat BMP will be checked. If that is improved she may be able be discharged home. If not in theelectrolytes and labs are still significant abnormal she will be admitted. She is being checked out to the afternoon physician. I have already discussed with the hospitalist. History & Record Review Discussion w/independent historian: Patient Additional record(s) reviewed:: Prior inpatient record, Prior outpatient record,Prior ED visit and Prior labs Lab Data Attestation: I reviewed the patient's lab results. Lab results narrative: CBC shows a white count of 21.0. H&H is 16 and 45. Platelets 451. Electrolytes show sodium 127. Potassium 5.2. Gap 18. BUN/creatinine of 30 and1. Glucose 364. Beta hydroxybutyric acid is elevated 0.4 UA shows 1000 glucose. 50 ketones. Negative nitrates. 0 red cells. 0 white cells. 1+ bacteria Arterial blood gas due to concern for possible DKA showed a pH of 7.58PCO2 of 21and PO2 of 89. 98% on room air. Labs: Laboratory Results - last 24 hr 04/15/25 04/15/25 04/15/25 13:32 14:20 16:32 WBC 21.0 H RBC 5.48 H Hgb 16.3 H Hct 45.4 MCV 82.8 MCH 29.7 MCHC 35.9 RDW Std Deviation 38.5 RDW Coeff of Neida 12.8 Plt Count 451 H MPV 9.4 Immature Gran % (Auto) 0.700 Neut % (Auto) 81.4 H Lymph % (Auto) 10.8 L Boyle % (Auto) 6.5 Eos % (Auto) 0.2 Baso % (Auto) 0.4 Absolute Neuts (auto) 17.1 H Absolute Lymphs (auto) 2.26 Nucleated RBC % 0 Sodium 127 L Potassium 5.2 H Chloride 89 L Carbon Dioxide 20.4 L Anion Gap 18 H BUN 30 H Creatinine 1.06 Estim Creat Clear Calc 47.41 L Est GFR (MDRD) Non-Af 57 L BUN/Creatinine Ratio 27.9 H Glucose 364 H Calcium 10.5 b-Hydroxybutyric mmol/L 0.4 H Urine Color Yellow Urine Clarity Sl. Cloudy Urine pH 6.0 Ur Specific [place] 1.015 Urine Protein 30 H Urine Glucose (UA) 1000 H Urine Ketones 50 H Urine Occult Blood 25 H Urine Nitrite Negative Urine Bilirubin Negative Urine Urobilinogen Normal Ur Leukocyte Esterase Negative Urine RBC 0 SEEN Urine WBC 0-5 SEEN Ur Squamous Epith Cells 5-10 SEEN Urine Bacteria 1+ Hyaline Casts 5-10 SEEN Urine Mucus 0 SEEN POC Glucose 269 H ABG Data ABG results: ABG 04/15/25 15:06 Specimen Type ART Sample Site L Radial pH 7.59 H Bicarbonate Actual 20.8 L Total CO2 22 Base Excess -1 O2 Saturation 98 ABG pCO2 21.8 L ABG pO2 89 Beatriz Test Positive O2 Delivery Device Room Air Vent Mode Not entered Discharge Plan Triage Chief Complaint: Hyperglycemia ED Provider: Berry Waldrop Dx/Rx/DC Orders Clinical Impression: Diabetes mellitus with hyperglycemia, Nausea & vomiting Prescriptions: No Action glimepiride 2 mg tablet 2 mg PO BID Trulicity 0.75 mg/0.5 mL pen injector 0.75 mg subcut QWEEK atorvastatin 40 mg tablet 40 mg PO QDAY Qty: 90 3RF thyroid (pork) 120 MG tablet 120 tablet PO DAILY ergocalciferol (vitamin D2) 50,000 UNIT capsule 50,000 unit PO MOFR clopidogrel 75 mg Tablet 75 mg PO DAILY Qty: 30 2RF carvedilol 6.25 mg tablet 6.25 mg PO BID spironolactone 25 mg tablet 25 mg PO BID pantoprazole 40 mg tablet,delayed release (DR/EC) 40 mg PO DAILY Qty: 30 0RF insulin glargine [Lantus Solostar U-100 Insulin] 100 unit/mL (3 mL) insulin pen 20 unit subcut DAILY thyroid (pork) [Kinney Thyroid] 30 mg tablet 30 mg PO MOWEFR elderberry fruit 200 mg capsule 1,000 mg PO DAILY Trulicity 1.5 mg/0.5 mL pen injector 1.5 mg subcut QWEEK Primary Care Provider: Preet Farrar Referrals: Preet Farrar DO [Primary Care Provider] - Print Language: Canadian What to do if you have Problems For any increased pain, shortness of breath, bleeding, nausea or vomiting, chestpain, or any unexpected problems, contact your Primary Care Provider. Call [facility] ([phone]) or report to the closest Emergency Room. Call 911 if necessary. 04/15/25 1703 <Electronically signed by Berry Waldrop MD> Cosigner Signature (if applicable): CC: Dr. Preet Farrar DO ~ Signed [facility] Work Phone: [phone]) 971-243207-11-2025 Telephone encounter Note* Telephone Encounter - Liz Richards LPN - 04/07/2025 10:06 AM EDT Pt notified via my chart. [facility]07-11-2025 Miscellaneous Notes* Telephone Encounter - Liz Richards LPN - 04/07/2025 10:06 AM EDT Pt notified via my chart. * Telephone Encounter - Liz Richards LPN - 04/06/2025 1:46 PM EDT Images from the original note were not included. This was denied last year and again this year. ote from payer: Request Reference Number: [id number]. ARMOUR THYRO TAB 120MG is denied for not meeting the prior authorization requirement(s). Details of this decision are in the notice attached below or have been faxed to you. Payer: [employer] P[employer] Part D [phone] Electronic appeal: Not supported Appeal instructions: Appeals are not supported through ePA. Please refer to the fax case notice forappeals information and instructions. View History Notes Time User Attachment Attachment received from payer. 04/06/2025 1:43 PM Cchs, Rx Priorauth In Document Pharmacy Benefits Open Encounter FRANCIS DEONTE G - [employer] ([employer]) Covered: Retail, Mail Order Unknown: Specialty, Long-Term Care BIN: [id number] : 1955 Group ID: [id number] PCN: [id number] Legal sex: F Group name: [employer] Address: [address] [place] [address] Medication Being Authorized ARMOUR THYROID 120 mg tablet Take 1 tablet PO daily in AM Dispense: 90 tablet Refills: 1 DAVE Start: 01/20/2025 Class: Normal Diagnoses: Acquired hypothyroidism This order has been released to its destination. To be filled at: [facility] [address] [place] [address] [address] [facility] - [phone] Prior Authorization History for ARMOUR THYROID 120 mg tablet 1 year ago Denied * Telephone Encounter - Liz Richards LPN - 04/06/2025 11:24 AM EDT PA completed with both doses. * Telephone Encounter - Liz Richards LPN - 04/06/2025 11:00 AM EDT Electronic PA requested for both doses 120mg and 30 mg * Telephone Encounter - Lisa Aparicio RN - 04/06/2025 10:37 AM EDT PRIOR AUTHORIZATION Medication for Prior Authorization: [facility] Thyroid Insurance Company: [facility] Medicare Patient insurance ID number: [id number] Lisa Aparicio RN documented in this encounterUniversity Hospitals [facility]07-10-2025 Telephone encounter Note * Telephone Encounter - Liz Richards LPN - 04/06/2025 1:46 PM EDT Images from the original note were not included. This was denied last year and again this year. ote from payer: Request Reference Number: [id number]. ARMOUR THYRO TAB 120MG is denied for not meeting the prior authorization requirement(s). Details of this decision are in the notice attached below or have been faxed to you. Payer: [employer] PBM Part D [id number] Electronic appeal: Not supported Appeal instructions: Appeals are not supported through ePA. Please refer to the fax case notice forappeals information and instructions. View History Notes Time User Attachment Attachment received from payer. 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 To be filled at: [facility] [address] [place] [address] [address] - [phone] Prior Authorization History for ARMOUR THYROID 120 mg tablet 1 year ago Denied [facility]07-10-2025 Telephone encounter Note* Telephone Encounter - Liz Richards LPN - 04/06/2025 11:24 AM EDT PA completed with both doses. [facility]07-10-2025 Telephone encounter Note* Telephone Encounter - Liz Richards LPN - 04/06/2025 11:00 AM EDT Electronic PA requested for both doses 120mg and 30 mg [facility]07-10-2025 Telephone encounter Note* Telephone Encounter - Lisa Aparicio RN - 04/06/2025 10:37 AM EDT PRIOR AUTHORIZATION Medication for Prior Authorization: [employer] Insurance Company: [facility] Medicare Patient insurance ID number: [id number] Lisa Aparicio RN [facility]07-07-2025 Telephone encounter Note* Telephone Encounter - Lisa Aparicio RN - 04/03/2025 9:29 AM EDT The patient has been identified by [...] Aparicio RN April 03, 2025 9:31 AM [facility]07-07-2025 Miscellaneous Notes* Telephone Encounter - Lisa Aparicio RN - 04/03/2025 9:29 AM EDT The patient has been identified by [...] 03, 2025 9:31 AM documented in this encounterUniversity Hospitals Parma Medical Center06-27-2025 Note* Addendum Note - Liliana Bennett APRN.CNP - 03/24/2025 9:13 AM EDTAddended by: LILIANA BENNETT on: 03/24/2025 09:13 AM Modules accepted: Orders [facility]06-27-2025 Miscellaneous Notes* Addendum Note - Liliana Bennett APRN.CNP - 03/24/2025 9:13 AM EDTAddended by: LILIANA BENNETT on: 03/24/2025 09:13 AM Modules accepted: Orders documented in this encounterUniversity Hospitals Parma Medical Center06-25-2025 Instructions* Patient Instructions* Liliana Bennett APRN.CNP - 03/22/2025 1:58 PM EDT Please schedule your mammogram Try cutting the carbs down to about 40g a day. Carbs and sugars with the trulicity can cause GI upset called sugar dumping Drink plenty of water Continue with at least 80-100 g of protein a day Start your new dose of trulicity on Thursday documented in this encounterUniversity Hospitals Parma Medical Center06-25-2025 NoteHNO ID: [id number] Author: LILIANA BENNETT APRN.CNP Service: ? Author Type: Nurse Practitioner [...] she developed pancreatitis. Scheduled f/u appt with Artist Consultant. HISTORY OF PRESENT ILLNESS: Hyperglycemia: - Reports [...] with an orange or apple. - Dinner: [place] or tuna with broccoli, cauliflower, or [place] sprouts. - Snacks: Granola bars (17 grams [...] tablet by mouth on (more content not included)...[facility]06-25-2025 History of Present illness Narrative* Liliana Bennett, WEAPONS OFFICER [employer].BILLBOARD POSTER - 03/22/2025 1:44 PM EDT This is a 69 year old female [...] she developed pancreatitis. Scheduled f/u appt with Artist Consultant. HISTORY OF PRESENT ILLNESS: Hyperglycemia: - Reports [...] with an orange or apple. - Dinner: [place] or tuna with broccoli, cauliflower, or [place] sprouts. - Snacks: Granola bars (17 grams [...] 02/09. She's not sure she plans to continueto consult with endocrinology. Dizziness: - Experiences dizziness [...] 2 DM - Uncontrolled E11.65 Insulin: Yes Insulin [place], Disposable, (BD ULTRA-FINE MARIA T PEN NEEDLE) [...] 2 DM - Uncontrolled E11.65 Insulin: No insulin glargine (LANTUS SOLOSTAR U-100 [...] Cuff Size: Large Adult) Pulse 78 Wt 84.3kg (185 lb 12.8 oz) SpO2 98% BMI [...] as needed for worsening/no improvement. Liliana Bennett APRN.BILLBOARD POSTER Recording using Cubby software for draft documentation of the visit was discussed with the patient/authorized front office representative; all questions welcomed and answered. Patient/authorized front office representative agreed to proceed documented in this encounterUniversity Hospitals Parma Medical Center06-21-2025 Telephone encounter Note * Telephone Encounter - Conchis Jacob MD - 03/18/2025 4:07 PM EDT The following approved medication requests have been transmitted electronically. Requested Prescriptions Signed Prescriptions Disp Refills ondansetron orally disintegrating (ZOFRAN ODT) 4 mg disintegrating tablet 20 tablet 0 Sig: Take 1 tablet by mouth every 8 hours as needed for nausea/vomiting. Authorizing Provider: CONCHIS JACOB MD [facility]06-21-2025 Miscellaneous Notes* Telephone Encounter - Conchis Jacob MD - 03/18/2025 4:07 PM EDT The following approved medication requests have been transmitted electronically. Requested Prescriptions Signed Prescriptions Disp Refills ondansetron orally disintegrating (ZOFRAN ODT) 4 mg disintegrating tablet 20 tablet 0 Sig: Take 1 tablet by mouth every 8 hours as needed for nausea/vomiting. Authorizing Provider: CONCHIS JACOB MD * Telephone Encounter - Josie Starks RN - 03/18/2025 10:03 AM EDT Patient calls back to report that she [...] Zofran pended for review. Josie Starks RN * Telephone Encounter - Josie Starks RN - 03/18/2025 8:51 AM EDT Patient was told to contact office today with update on symptoms. Patient continues to have nausea today. Vomiting x 1 (yogurt) as that is all she is currently eating. No diarrhea. Patient did take insulin this morning and oral medication. FBS 196. Patient asking if Zofran could be sent to [facility]. Pended previous order of Zofran. Message from 03/17/2025: Spoke with pt she states did not take it that day at all in case . She states she has been sick forpast 2 days with nausea and vomited once and diarrhea. Told her plenty of fluids and rest if no better when gets up tomorrow call in office open till noon. documented in this encounterUniversity Hospitals Parma Medical Center06-21-2025 Telephone encounter Note * Telephone Encounter - Josie Starks RN - 03/18/2025 10:03 AM EDT Patient calls back to report that she [...] Zofran pended for review. Josie Starks RN [facility]06-21-2025 Telephone encounter Note* Telephone Encounter - Josie Starks RN - 03/18/2025 8:51 AM EDT Patient was told to contact office today with update on symptoms. Patient continues to have nausea today. Vomiting x 1 (yogurt) as that is all she is currently eating. No diarrhea. Patient did take insulin this morning and oral medication. FBS 196. Patient asking if Zofran could be sent to [facility]. Pended previous order of Zofran. Message from 03/17/2025: Spoke with pt she states did not take it that day at all in case . She states she has been sick forpast 2 days with nausea and vomited once and diarrhea. Told her plenty of fluids and rest if no better when gets up tomorrow call in office open till noon. [facility]06-19-2025 Telephone encounter Note* Telephone Encounter - Sofia Rodriguez MA - 03/16/2025 3:47 PM EDT Left message to return call Sofia Rodriguez MA [facility]06-19-2025 Miscellaneous Notes* Telephone Encounter - Sofia Rodriguez MA - 03/16/2025 3:47 PM EDT Left message to return call Sofia Rodriguez MA * Telephone Encounter - Liliana Bennett APRN.DEREK - 03/16/2025 2:55 PM EDT If patient doesn't recall if she took the insulin or not, she should not take it and wait until tomorrow. Better for her to be high than to bottom out. Thank you * Telephone Encounter - Yesi Kitchen RN - 03/16/2025 2:17 PM EDT Pt calling in and states that she has not been feeling well and just woke up. She thinks she did not take her insulin this morning and is wondering if she should take it now. Per pt's med list, she is only on Lantus insulin and directions say to take at night. Pt states she takes her insulin in themorning and always has. States Dr. Farrar is [...] blood sugar and it is 231. Pt statesshe isn't eating much. She is going to eat some soup. Pt is wondering if she can just hold off and take her insulin shot tomorrow morning? documented in this encounterUniversity Hospitals Parma Medical Center06-19-2025 Telephone encounter Note * Telephone Encounter - Liliana Bennett APRN.DEREK - 03/16/2025 2:55 PM EDT If patient doesn't recall if she took the insulin or not, she should not take it and wait until tomorrow. Better for her to be high than to bottom out. Thank you [facility]06-19-2025 Telephone encounter Note* Telephone Encounter - Yesi Kitchen RN - 03/16/2025 2:17 PM EDT Pt calling in and states that she has not been feeling well and just woke up. She thinks she did not take her insulin this morning and is wondering if she should take it now. Per pt's med list, she is only on Lantus insulin and directions say to take at night. Pt states she takes her insulin in themorning and always has. States Dr. Farrar is [...] blood sugar and it is 231. Pt statesshe isn't eating much. She is going to eat some soup. Pt is wondering if she can just hold off and take her insulin shot tomorrow morning? [facility]05-25-[facility]25 Radiology Diagnostic study note [facility] Imaging Services [address] [place], [place] [id number] CTA Abdomen W/WO Contrast MR#: [id number] Acct: [id number] Name: DEONTE BLANCO Rep #: [id number] : 1955 F 69 From: [place] Covarrubias MD PCP: Dr. Preet Farrar, DO Status: HARSHA Walker CLI Study:CTA Abdomen W/WO Contrast Date of Exam: 02/16/25 Exam# [id number] Ordering Dr: Jozef Reyna MD PROCEDURE: CTA [...] stenosis of the renal arteries. Reading Location: [place] [address] CC: Dr. Julien Reyna MD; Dr. Preet Farrar DO ~ Artist Consultant: Signed [facility]05-24-2025 NoteHNO ID: [id number] Author: PREET FARRAR DO Service: ? Author Type: Physician Type: Progress Notes Filed: 02/18/2025 11:49 Note Text: Patient presents with: F/U 3 Month HPI: Deonte Blanco is a 69 year old female who presents to the office today for review of health conditions. Concerns today: She was seen by Banking Management Consulting Manager Dr. Isaac and states that she didn't [...] time. She does not check BP's generally. Deonte gets minimal exercise. PAST MEDICAL HISTORY Diagnosis [...] In the morning. (Take (more content not included)...[facility]05-20-2025 NoteHNO ID: [id number] Author: RODRIGO HOLGUIN RN Service: ? Author Type: Registered Nurse Type: Progress Notes Filed: 02/14/2025 13:17 Note Text: DIABETES CARE AND EDUCATION VISIT Location: [place] Type of visit: In person individual PATIENT'S [...] record. SIGNATURE: Rodrigo Holguin RN PATIENT NAME: Deonte Blanco DATE: February 14, 2025 TIME: 12:48 [facility]05-15-2025 Instructions* Patient Instructions* Bean Isaac MD - 02/09/2025 10:35 AM EDT Continue same dose for latus and glimepiride. Recommend being careful wit trulicity as it has same side effects as Ozempic, and hence risk of pancreatitis If stopping Trulicity, I would recommend resuming januvia 100 mg daily documented in this encounterUniversity Hospitals Parma Medical Center05-15-2025 NoteHNO ID: [id number] Author: PUSHPA FALCON RN Service: ? Author Type: Registered Nurse Type: Progress Notes Filed: 02/09/2025 19:08 Note Text:[facility]05-15-2025 History of Present illness Narrative* Pushpa Falcon RN - 02/09/2025 10:10 AM EDT Images from the original note were not included. * Bean Isaac MD - 02/09/2025 10:08 AM EDT [facility] Follow up note Referred by: PCP- Preet Farrar DO History of Present illness: Deonte Blanco is a 69 year old female [...] carbs . Lifestyle -Exercise: 30 mins on [employer] daily -Diet: Breakfast: 3 eggs, 1 slice [...] tablet by mouth once daily. (Patient taking differently:Take 40 mg by mouth once daily.) 90 [...] daily. 30 tablet 5 blood sugar diagnostic (FrilpTOUCH VERIO TEST STRIPS) test strip Test blood sugar(s) 4 times daily. Dx: Type 2 DM - Uncontrolled Insulin: Yes 150 Strip 11 Insulin [place], Disposable, (BD ULTRA-FINE MARIA T PEN NEEDLE) [...] 8 times daily. Dx: E11.. 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 [...] not want to see providers far from [place] and hence [facility] weight management referral placed #Hypertension -Today BP [...] which included preparing to see the patient, [id number] patient care, completing clinical documentation, obtaining and/or reviewing separately obtained history, counseling and educating the patient/family/caregiver, ordering referrals, and c ommunicating results to the patient/family/caregiver and extensive counseling. Bean Isaac MD Endocrinology Associate Staff [facility] Endocrinology and Metabolism Emily [phone] Medical Decision Making: Medical Decision Making Level: 1 - N/A documented in this encounterUniversity Hospitals Parma Medical Center05-15-2025 NoteHNO ID: [id number] Author: BEAN ISAAC MD Service: ? Author Type: Physician Type: Progress Notes Filed: 02/09/2025 19:08 Note Text: [facility] Follow up note Referred by: PCP- Preet Farrar DO History of Present illness: Deonte Blanco is a 69 year old female [...] Benign hypertensive heart disease (more content not included)...[facility]04-08-2025 Telephone encounter Note* Telephone Encounter - Yesi Kitchen RN - 01/03/2025 4:57 PM EDT From another encounter dated 12/29/24 Madie Bruce MA JM 01/03/25 12:25 PM Note Phoned patient as requested by provider. Discussed trulicity and the effects of surgery on her blood sugar. Patient reports understanding. Patient will continue medication as directed. Patient agreesto change her follow up appointment to earlier if she has more questions. Madie Bruce MA [facility]04-08-2025 Miscellaneous Notes* Telephone Encounter - Yesi Kitchen RN - 01/03/2025 4:57 PM EDT From another encounter dated 12/29/24 Madie Bruce MA 01/03/25 12:25 PM Note Phoned patient as requested by provider. Discussed trulicity and the effects of surgery on her blood sugar. Patient reports understanding. Patient will continue medication as directed. Patient agreesto change her follow up appointment to earlier if she has more questions. Madie Bruce MA * Telephone Encounter - Yesi Kitchen RN - 01/02/2025 3:35 PM EDT See other phone note from 12/29. Dr. Farrar has given direction for pt to stop Januvia since pt started Trulicity last . Pt was told to stop Januvia today (Tuesday 01/02) Called pt to follow up on what provider had done for pt. Pt states she hadn't heard from anyone. Ptstates her sugars on Thursday were: 212 292 [...] will follow up with Dr. Farrar or fashion styling intern provider for Dr. Isaac. * Telephone Encounter - Yesi Kitchen RN - 12/30/2024 12:15 PM EDT Pt calling in due to elevated BS. Pt states she had a vaginal hysterectomy this past Wednesday 12/[address] Isaac. Pt states while she was in the [...] it has been running in the 160's-240's forseveral weeks. 2. ONSET: see above 3. USUAL [...] hysterectomy Protocols used: Diabetes - High Blood Ykrfi-DDCUF-KO documented in this encounterUniversity Hospitals Parma Medical Center04-08-2025 NotePatient Outreach (FAMPWS) DEONTE BLANCO ([id number]) 1955 F Date Time Provider Department 01/03/25 PREET FARRAR FAMPWS During your visit today, [...] for screening mammogram for breast cancer [Z12.31] Order(s):[facility] SCREENING W BRAIN [[id number]] Order #: [id number] FUTURE Prescriptions as of 02/03/2025 - ARMOUR [...] Type 2 DM - Uncontrolled . Insulin: Yes - dexAMETHasone (DECADRON) 1 mg tablet Take the tablet at 11 pm and go for labs the next morning on fasting at 8 am - Insulin [place], Disposable, (BD ULTRA-FINE MARIA T PEN NEEDLE) [...] BMI 30-34.9 [E66.811] 03/23/2024 Encounter Status:Closed by FAVIAN PRODUSER on 02/03/25[facility] 01-02-2025 Telephone encounter Note* Telephone Encounter - Fidelina, Yesi, RN - 01/02/2025 4:52 PM EDT Routing note to Dr. Isaac for review as well-please see triage encounter from 12/30/24. [facility]04-07-2025 Miscellaneous Notes* Telephone Encounter - Yesi Kitchen RN - 01/02/2025 4:52 PM EDT Routing note to Dr. Isaac for review as well-please see triage encounter from 12/30/24. * Telephone Encounter - Sahara Mejia LPN - 01/02/2025 4:43 PM EDT Pt. informed. * Telephone Encounter - Preet Farrar DO - 01/02/2025 3:36 PM EDT Please have her hold the Januvia when starting the Trulicity Preet Farrar DO * Telephone Encounter - Pushpa Falcon RN - 01/02/2025 1:26 PM EDT To my knowledge and from reviewing Pt's chart, this encounter/triage note has not been handled thusfar. I am unable to see any documentation that Pt's concerns have been addressed. Dr. Isaac is out of the office today, 01/02/2025. Her expected return is 01/03/2025. Pushpa Falcon RN January 02, 2025 1:29 PM * Telephone Encounter - Yesi Kitchen RN - 01/02/2025 8:58 AM EDT Please see triage note as pt called [...] stated the call had been handled through [employer] chat. No notes in triage with what was done. Will follow up with Dr. Isaac and her office. Will also forward this msg to her as well. * Telephone Encounter - Chelo Prasad RN - 12/29/2024 9:42 AM EDT Patient calling to clarify if she should [...] reply. Chelo Prasad RN documented in this encounterUniversity Hospitals Parma Medical Center04-07-2025 Telephone encounter Note * Telephone Encounter - Sahara Mejia LPN - 01/02/2025 4:43 PM EDT Pt. informed. [facility]04-07-2025 Telephone encounter Note* Telephone Encounter - Preet Farrar DO - 01/02/2025 3:36 PM EDT Please have her hold the Januvia when starting the Trulicity Preet Farrar DO [facility]04-07-2025 Telephone encounter Note* Telephone Encounter - Yesi Kitchen RN - 01/02/2025 3:35 PM EDT See other phone note from 12/29. Dr. Farrar has given direction for pt to stop Januvia since pt started Trulicity last . Pt was told to stop Januvia today (Tuesday 01/02) Called pt to follow up on what provider had done for pt. Pt states she hadn't heard from anyone. Ptstates her sugars on Thursday were: 212 292 [...] will follow up with Dr. Farrar or fashion styling intern provider for Dr. Isaac. [facility]04-07-2025 Telephone encounter Note* Telephone Encounter - Pushpa Falcon RN - 01/02/2025 1:26 PM EDT To my knowledge and from reviewing Pt's chart, this encounter/triage note has not been handled thusfar. I am unable to see any documentation that Pt's concerns have been addressed. Dr. Isaac is out of the office today, 01/02/2025. Her expected return is 01/03/2025. Pushpa Falcon RN January 02, 2025 1:29 PM [facility]04-07-2025 Telephone encounter Note* Telephone Encounter - Yesi Kitchen RN - 01/02/2025 8:58 AM EDT Please see triage note as pt called [...] stated the call had been handled through [employer] chat. No notes in triage with what was done. Will follow up with Dr. Isaac and her office. Will also forward this msg to her as well. [facility]04-04-2025 Telephone encounter Note* Telephone Encounter - Yesi Kitchen RN - 12/30/2024 12:15 PM EDT Pt calling in due to elevated BS. Pt states she had a vaginal hysterectomy this past Wednesday 12/[address] Isaac. Pt states while she was in the [...] it has been running in the 160's-240's forseveral weeks. 2. ONSET: see above 3. USUAL [...] hysterectomy Protocols used: Diabetes - High Blood Oeqtw-UBBCO-WQ [facility]04-03-2025 Telephone encounter Note* Telephone Encounter - Chelo Prasad RN - 12/29/2024 9:42 AM EDT Patient calling to clarify if she should [...] call patient with reply. Chelo Prasad RN [facility]04-02-2025 Progress note Author Anushka Isaac [facility] Note Date/Time December 28, 2024 8:32 am [facility] Medical Records Department [address] [place] [address] Progress Note - OBGYN 12/28/2429 MR#: [id number] Acct: [id number] Name: DEONTE BLANCO Rep #:[id number] : 1955 69 From: Anushka centeno MD PCP: Dr. Preet Farrar, DO Status:AD M IN Location: [facility] [id number] Subjective Subjective Patient doing well without complaints [...] following for bp and BS control. 12/28/24 0819 <Electronically signed by Anushka Isaac MD> Cosigner Signature (if applicable): CC: ~ Signed [facility] Work Phone: 1(997) 264-462204-02-2025 Progress note [facility] Medical Records Department [address] [place] [address] Progress Note - OBGYN 12/28/24828 MR#: [id number] Acct: [id number] Name: DEONTE BLANCO Rep #:[id number] : 1955 69 From: Anushka centeno MD PCP: Dr. Preet Farrar, DO Status:AD M IN Location: [place] CV793-4 Subjective Subjective Patient doing well without complaints [...] Cosigner Signature (if applicable): CC: ~ Signed [facility] [facility] Progress note Author Carmen Dallas [facility] Note Date/Time December 27, 2024 6:57 pm [facility] Medical Records Department [address] [place] [address] Progress Note 12/27/24 1729 MR#: [id number] Acct: [id number] Name: DEONTE BLANCO Rep #:[id number] : 1955 69 From: Carmen Dallas MD PCP: Dr. Preet Farrar, DO Status:AD M [place] Location: [place]3 MF228-5 Subjective Subjective Patient is a 69-year-old female [...] * Also takes sitagliptin. * #Hypothyroidism: On Kinney Thyroid. DVT prophylaxis: As per primary service. Thank you for the courtesy of the consult. Hospitalist service will continue tofollow with you. Charges/Coding Visit Charges Inpatient E&M: 06573 Subs Hosp L2 12/27/24 8752 <Electronically signed by Carmen Dallas MD> Carmen Dallas MD Cosigner Signature (if applicable): CC: ~ Signed [facility] Work Phone: 1(252) 985-564104-01-2025 Progress note [facility] Medical Records Department [address] [place] [address] Progress Note 12/27/24 1729 MR#: [id number] Acct: [id number] Name: DEONTE BLANCO Rep #:[id number] : 1955 69 From: Carmen Dallas MD PCP: Dr. Preet Farrar, DO Status:AD M IN Location: [facility] KW311-4 Subjective Subjective Patient is a 69-year-old female [...] * Also takes sitagliptin. * #Hypothyroidism: On Kinney Thyroid. DVT prophylaxis: As per primary service. Thank you for the courtesy of the consult. Hospitalist service will continue tofollow with you. Charges/Coding Visit Charges Inpatient E&M: 81400 Subs Hosp L2 12/27/24 7533 Carmen Dallas MD Cosigner Signature (if applicable): CC: ~ Signed [facility]04-01-2025 Progress note Author Anushka Isaac [facility] Note Date/Time December 27, 2024 4:44 pm [facility] Medical Records Department [address] [place] [address] Progress Note 12/27/24 1639 MR#: [id number] Acct: [id number] Name: DEONTE BLANCO Rep #:[id number] : 1955 69 From: Anushka centeno MD PCP: Dr. Preet Farrar, DO Status:RE [facility] Location: [place] [address] Progress Note patient seen- pain fairly controlled, catheter replaced and heart rate improved now, bp still elevated, BS 299 and will consult medicine for assistance with management. 12/27/24 1644 <Electronically signed by Anushka Isaac MD> Anushka Isaac MD Cosigner Signature (if applicable): CC: ~ Signed [facility] Work Phone: 1(108) 618-456504-01-2025 Progress note [facility] Medical Records Department [address] [place] [address] Progress Note 12/27/24 1639 MR#: [id number] Acct: [id number] Name: DEONTE BLANCO Rep #:[id number] : 1955 69 From: Anushka centeno MD PCP: Dr. Preet Farrar, DO Status:[facility] Location: [place] [address] Progress Note patient seen- pain fairly controlled, catheter replaced and heart rate improved now, bp still elevated, BS 299 and will consult medicine for assistance with management. 12/27/24 164 Anushka Isaac MD Cosigner Signature (if applicable): CC: ~ Signed [facility]04-01-2025 Discharge summary Author Anushka Isaac [facility] Note Date/Time December 27, 2024 12:1 7pm [facility] Medical Records Department [address] [place] [address] Instructions for Home/Discharge Instructions 12/27/24 1215 MR#: [id number] Acct: [id number] Name: DEONTE BLANCO Rep #:[id number] : 1955 69 From: Anushka centeno MD PCP: Dr. Preet Farrar DO Status[place]RE [place] [facility] Discharge Instructions Diet Discharge Diet: No [...] Up Care Please Follow Up With: Anushka Isaac MD Test Results: Test results from this visit will be discussed in further detail at your follow- up appointment, if applicable. Discharge Plan Admission Attending Provider: Anushka Isaac Primary Care Provider: Preet Farrar Instructions Print Language: Canadian Discharge Orders/Prescriptions Prescriptions: New oxycodone-acetaminophen [Percocet] 5-325 [...] pen 20 unit subcut DAILY thyroid (pork) [Kinney Thyroid] 30 mg tablet 30 mg PO MOWEFR elderberry fruit 200 mg capsule 1,000 mg PO DAILY Referrals / Follow Up: Preet Farrar DO [Primary Care Provider] - Disposition Disposition (needs filled in before D/C Order can be placed): Home, Self Care 12/27/24 1217<Electronically signed by Anushka Isaac MD>Anushka Isaac MD CC: Dr. Preet Farrar, DO ~ Signed [facility] Work Phone: 1(836) 902-200704-01-2025 Consult note Author Mati Ervin [facility] Note Date/Time December 27, 2024 11:1 7am [facility] Medical Records Department [address] [place] [address] Anesthesia Postop Eval II 12/27/24 1116 MR#: [id number] Acct: [id number] Name: DEONTE BLANCO Rep #:[id number] : 1955 69 From: Mati Ervin MD PCP: Dr. Preet Farrar, Status:RE [place] [facility] [place] Race: C Location: [place] [address] Anesthesia Postop Eval I Sum Postop Eval Completion status Anesthesia document: Postop Eval 1 completed: Yes Anesthesia Postop Eval I Summary Anesthesia Postop Eval I Summary: Anesthesia Postop Eval I: Assessment Summary Airway patent Yes 12/27/24 10:05 [email or web address] [email or web address] Spontaneous unlabored Yes 12/27/24 10:05 [email or web address] [email or web address] respirations Mental status Awake,Calm 12/27/24 10:05 [email or web address] [email or web address] nausea No 12/27/24 10:05 IRON [email or web address].[email or web address] Vomiting No 12/27/24 10:05 IRON [email or web address] Anesthesia Postop Eval I: Fluid Summary Crystalloid volume administer 700 12/27/24 10:05 IRON [email or web address].[email or web address] (ml) Colloids volume administered ( ml) Blood Product volume administered (ml) Total IV fluid infused 700 12/27/24 10:05 IRON [email or web address] Anesthesia Postop Eval I: Summary Notes Anesthesia Complication No 12/27/24 10:05 IRON [email or web address].[email or web address] Anesthesia Complication Comment: Post-operative progress note Anesthesia: Postop Eval II Evaluation Mental status: Awake and Calm Pain Level: 2 nausea: No Vomiting: No Complications Anesthesia Complication: No 12/27/24 1117 <Electronically signed by Mati victor MD> Date _ Mati Ervin MD Cosigner Signature: Date CC: ~ Signed [facility] Work Phone: 1(661) 601-426204-01-2025 Discharge summary [facility] Medical Records Department [address] [place] [address] Instructions for Home/Discharge Instructions 12/27/24 1215 MR#: [id number] Acct: [id number] Name: DEONTE BLANCO Rep #:[id number] : 1955 69 From: Anushka centeno MD PCP: Dr. Preet Farrar, Status[place] [facility] Discharge Instructions Diet Discharge Diet: No [...] Up Care Please Follow Up With: Anushka Isaac MD Test Results: Test results from this visit will be discussed in further detail at your follow- up appointment, if applicable. Discharge Plan Admission Attending Provider: Anushka Isaac Primary Care Provider: Preet Farrar Instructions Print Language: Canadian Discharge Orders/Prescriptions Prescriptions: New oxycodone-acetaminophen [Percocet] 5-325 [...] pen 20 unit subcut DAILY thyroid (pork) [Kinney Thyroid] 30 mg tablet 30 mg PO MOWEFR elderberry fruit 200 mg capsule 1,000 mg PO DAILY Referrals / Follow Up: Preet Farrar DO [Primary Care Provider] - Disposition Disposition (needs filled in before D/C Order can be placed): Home, Self Care 12/27/24 1217Anushka Isaac MD CC: Dr. Preet Farrar DO ~ Signed [facility]04-01-2025 Procedure note [facility] Medical Records Department [address] [place] [address] Operative Report 12/27/24 1212 MR#: [id number] Acct: [id number] Name: DEONTE BLANCO Rep #:[id number] : 1955 69 From: Anushka centeno MD PCP: Dr. Preet Farrar DO Status:[facility] Location: [place] [address] Problems Associated Problem List Diagnoses (1) Endometrial hyperplasia without atypia: Multi Select Codes Urinary/Genital Urinary/Genital CPT Codes: 09190 TVH <250 gr uterus Operative Report (Standard) Operative Information Date of Procedure: 12/27/24 Pre-Operative Diagnosis: see problem list details Post-Operative Diagnosis: same Surgery/Procedure Performed: total vaginal hysterectomy cherry sorter: Yes Deputy Sheriff Chief: Isha Valderrama Tasks completed by pastoral assistant: Opening & closing and Retracting Type of [...] was noted. The vagina was closed with [id number] 0 Vicrylpop offs including the posterior and anterior peritoneum in the reapproximation. Excellent hemostasis was noted. All instruments removed from the vagina clear urine was noted at the end of the procedure. Surgical Findings: nl uterus and ovaries. Complications Complications: No 12/27/24 1215 Cosigner Signature (if applicable): CC: Dr. Preet Farrar DO; Dr. Anushka Isaac MD~ Signed [facility]04-01-2025 Consult note Author May Cartwright [facility] Note Date/Time December 27, 2024 10:0 5am [facility] Medical Records Department [address] [place] [address] Anesthesia Postop Eval I 04/01/25 1004 MR#: [id number] Acct: [id number] Name: DEONTE BLANCO Rep #:[id number] : 1955 69 From: May Cartwright PCP: Dr. Preet Farrar, DO [place] [facility] [place] Race: C Location: [place] [address] Anesthesia: Postop Eval I Current Vital Signs [...] Postop Eval 1 completed: Yes 12/27/24 1005 <Electronically signed by May Cartwright > Date _ May Gilbertignshelley Signature: Date CC: ~ Signed [facility] Work Phone: [phone]) [phone] Consult note [facility] Medical Records Department [address] [place] [address] Anesthesia Postop Eval II 12/27/24 1116 MR#: [id number] Acct: [id number] Name: DEONTE BLANCO Rep #:[id number] : 1955 69 From: Mati Ervin MD PCP: Dr. Preet Farrar, DO Status: [place] [facility] [place] Race: C Location: [place] [address] Anesthesia Postop Eval I Sum Postop Eval Completion status Anesthesia document: Postop Eval 1 completed: Yes Anesthesia Postop Eval I Summary Anesthesia Postop Eval I Summary: Anesthesia Postop Eval I: Assessment Summary Airway patent Yes 12/27/24 10:05 IRON [email or web address] Spontaneous unlabored Yes 12/27/24 10:05 IRON [email or web address] respirations Mental status Awake,Calm 12/27/24 10:05 IRON [email or web address] nausea No 12/27/24 10:05 IRON MELTER.[email or web address] Vomiting No 12/27/24 10:05 IRON [email or web address] Anesthesia Postop Eval I: Fluid Summary Crystalloid volume administer 700 12/27/24 10:05 IRON MELTER.GDOTT (ml) Colloids volume administered ( ml) Blood Product volume administered (ml) Total IV fluid infused 700 12/27/24 10:05 IRON MELTER.[email or web address] Anesthesia Postop Eval I: Summary Notes Anesthesia Complication No 12/27/24 10:05 IRON [email or web address].[email or web address] Anesthesia Complication Comment: Post-operative progress note Anesthesia: Postop Eval II Evaluation Mental status: Awake and Calm Pain Level: 2 nausea: No Vomiting: No Complications Anesthesia Complication: No 12/27/24 1117 la > Date _ Mati Ervin MD Cosigner Signature: Date CC: ~ Signed [facility]04-01-2025 Evaluation note* Diagnosis Onset Date Resolution Status Admit Date Endometrial hyperplasia with out atypia acute December 27, 2024 8:20am History of total vaginal hysterectomy (TVH) acute December 27 8:20am Atherosclerotic vascular disease chronic December 27, 2024 8:20am Carotid artery disease chronic 2024 8:20am Dyslipidemia chronic December 27 025 8:20am History of CVA (cerebrovascu lar accident) chronic December 27, 2024 8:20am Hypertension chronic December 27, 025 8:20am Renal artery stenosis chronic Dec 8:20am Endometrial hyperplasia with out atypia acute January 09, 2025 10:57am Aortic valve stenosis with insufficiency chronic January 26, 2025 2: 04pm Atherosclerotic vascular disease chronic January 26, 2025 2: 04pm Carotid artery disease chronic Ma y 2024 2:04pm Diabetes chronic January 26, 2025 2:04pm Dyslipidemia chronic January 26 2:04pm History of CVA (cerebrovascu lar accident) chronic January 26, 2025 2: 04pm Hypertension chronic January 26 2:04pm Hypothyroidism chronic January 26, 2 025 2:04pm Renal artery stenosis chronic January 26, 2025 2:04pm Encounter for postoperative care noneactive February 06, 2025 10:49am [facility] Work Phone: 1(726) 402-989204-01-2025 Consult note Author Mati Ervin [facility] Note Date/Time December 27, 2024 8:06 am [facility] Medical Records Department [address] [place] [address] Pre-Anesthesia Evaluation 12/27/24 0752 MR#: [id number] Acct: [id number] Name: DEONTE BLANCO Rep #:[id number] : 1955 69 From: Mati Ervin MD PCP: Dr. 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 Hx Hospitalization No 12/13/24 09:23 Any Problems With Anesthesia Yes: N,V 03/18/25 09:23 Cholinesterase deficiency No 12/13/24 09:23 You/Your [...] sips of water?: Yes PONV PONV - distribution center manager: PONV - distribution center manager Female Yes 12/13/24 09:23 HX of Motion [...] 12/27/24 07:00 Respiratory Assessment Respiratory Assessment - distribution center manager: Respiratory Tract Infection Hx - distribution center manager Hx Respiratory Tract Infection No 12/13/24 09:23 STOP Sleep Apnea STOP Sleep Apnea - distribution center manager: STOP Sleep Apnea - distribution center manager Hx Hypertension Yes: CONTROLLED WITH MED 12/13/24 [...] 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 - distribution center manager: 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 - distribution center manager Tobacco Use Cigarettes 06/13/24 15:14 Smoking Status Former smoker 12/13/24 09:23 Hx Tobacco Use Yes: marijuana 12/13/24 09:23 Years Smoking Packs Smoked per Day Smoking Cessation Date was Yes - quit smoking within 15 12/13/24 09:23 within the last 15 years years Hx Smoking Cessation Date 10/29/22 12/13/24 09:23 Hx Smoking Cessation No 12/13/24 09:23 Counseling Hematologic Medial History Hematologic Hx - distribution center manager: Hematologic 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 12/27/24805 <Electronically signed by Mati victor MD> Date _ Mati Ervin MD Cosigner Signature: Date CC: ~ Signed [facility] Work Phone: 1(694) 488-660004-01-2025 Consult note [facility] Medical Records Department [address] [place] [address] Anesthesia Postop Eval I 12/27/24 1004 MR#: [id number] Acct: [id number] Name: DEONTE BLANCO Rep #:[id number] : 1955 69 From: May Cartwright PCP: Dr. Preet Farrar, DO [place]HARSHA Walker [facility] [place] Race: C Location: [place] [address] Anesthesia: Postop Eval I Current Vital Signs [...] May Woods Signature: Date CC: ~ Signed [facility]04-01-2025 History and physical note Author Anushka Isaac [facility] Note Date/Time December 27, 2024 7:22 am [facility] Medical Records Department [address] [place] [address] History & Physical Exam 12/27/24 0721 MR#: [id number] Acct: [id number] Name: DEONTE BLANCO Rep #:[id number] : 1955 69 From: Anushka centeno MD PCP: Dr. Preet Farrar, DO [place]HARSHA Walker [facility] Location: [place] [address] History and Physical Date of Admission: 12/27/24 [...] Reasons: TVHBS Chief Complaint: FU consult medications Driver License Reviewing Officer Required: No Is patient in pain?: No [...] mg PO MOWEFR 07/21/24 12/12/24 Histor y (Kinney Thyroid) glimepiride 2 mg tablet 3 mg [...] : No Nurse's Note: FU medication consult [facility] Medical History First degree AV block Abnormal [...] safe at home: Yes HPI TVHBS Details: DEONTE BLANCO is a 69 year old who [...] Weight [facility] F[facility] Unknown 1985 Alicia Unknown 1989 Zoey Unknown 1996 Jeffrey ROS Const Constitutional: Denies fatigue, night sweats, weight [...] no acute distress and welldeveloped Orientation: alert [facility] Head: normal to inspection and normocephalic Ears: [...] to the history and physical exam. Anushka Isaac MD 12/27/24 01 <Electronically signed by Anushka Isaac MD> Cosigner Signature (if applicable): CC: Dr. Preet Farrar DO; Dr. Anushka Isaac MD~ Signed [facility] Work Phone: 1(644) 846-500504-01-2025 Consult note [facility] Medical Records Department [address] [place] [address] Pre-Anesthesia Evaluation 12/27/24 0752 MR#: [id number] Acct: [id number] Name: DEONTE BLANCO Rep #:[id number] : 1955 69 From: Mati Ervin MD PCP: Dr. 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 center manager: Anesthesia History - distribution center manager Hx Hospitalization No 12/13/24 09:23 Any Problems [...] sips of water?: Yes PONV PONV - distribution center manager: PONV - distribution center manager Female Yes 12/13/24 09:23 HX of Motion [...] 12/27/24 07:00 Respiratory Assessment Respiratory Assessment - distribution center manager: Respiratory Tract Infection Hx - distribution center manager Hx Respiratory Tract Infection No 12/13/24 09:23 STOP Sleep Apnea STOP Sleep Apnea - distribution center manager: STOP Sleep Apnea - distribution center manager Hx Hypertension Yes: CONTROLLED WITH MED 12/13/24 [...] 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 - distribution center manager: 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 - distribution center manager Tobacco Use Cigarettes 06/13/24 15:14 Smoking Status Former smoker 12/13/24 09:23 Hx Tobacco Use Yes: marijuana 12/13/24 09:23 Years Smoking Packs Smoked per Day Smoking Cessation Date was Yes - quit smoking within 15 12/13/24 09:23 within the last 15 years years Hx Smoking Cessation Date 10/29/22 12/13/24 09:23 Hx Smoking Cessation No 12/13/24 09:23 Counseling Hematologic Medial History Hematologic Hx - distribution center manager: Hematologic 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 12/27/24 0806 valente TURNER> Date _ Mati Ervin MD Cosigner Signature: Date CC: ~ Signed [facility]04-01-2025 History and physical note [facility] Medical Records Department [address] [place] [address] History & Physical Exam 12/27/2421 MR#: [id number] Acct: [id number] Name: DEONTE BLANCO Rep #:[id number] : 1955 69 From: Anushka centeno MD PCP: Dr. Preet Farrar, DO Status:[facility] Location: [place] [address] History and Physical Date of Admission: 12/27/24 [...] Reasons: TVHBS Chief Complaint: FU consult medications Driver License Reviewing Officer Required: No Is patient in pain?: No [...] mg PO MOWEFR 07/21/24 12/12/24 Histor y (Kinney Thyroid) glimepiride 2 mg tablet 3 mg [...] : No Nurse's Note: FU medication consult [facility] Medical History First degree AV block Abnormal [...] safe at home: Yes HPI TVHBS Details: DEONTE BLANCO is a 69 year old who [...] Bth Weight Gen Labor Lgth Anesthesia Del [facility] Provider FOB Unknown 1985 Alicia Unknown 1989 [...] no acute distress and welldeveloped Orientation: alert [facility] Head: normal to inspection and normocephalic Ears: [...] to the history and physical exam. Anushka Isaac MD 12/27/24 0722 Cosigner Signature (if applicable): CC: Dr. Preet Farrar DO; Dr. Anushka Isaac MD~ Signed [facility]04-01-2025 [facility]03-26-2025 Telephone encounter Note* Telephone Encounter - Donna Kimble MA - 12/21/2024 10:49 AM EDT No PA needed covered. Called [employer] and spoke to [employer] who did for brand lantus and is covered. Patient was notified Donna Kimble MA [facility]03-26-2025 Miscellaneous Notes* Telephone Encounter - Donna Kimble MA - 12/21/2024 10:49 AM EDT No PA needed covered. Called [facility] and spoke to [employer] who did for brand lantus and is covered. Patient was notified Donna Kimble MA * Telephone Encounter - Chelo Prasad RN - 12/21/2024 9:12 AM EDT Patient calling in and states she needs a prior authorization for her lantus insulin, as ordered 10/07/24, per [facility]. Prior authorization requested for the following medication: Medication: insulin glargine (lantus solostar) 100 unit/mL Provider: Dr. Farrar Insurance Company Name: [facility] Medicare Pharmacy Name: [facility] Telephone number: [phone] Please call patient once an update has been received. Chelo Prasad RN documented in [facility] Telephone encounter Note * Telephone Encounter - Chelo Prasad RN - 12/21/2024 9:12 AM EDT Patient calling in and states she needs a prior authorization for her lantus insulin, as ordered 10/07/24, per [facility] pharmacy. Prior authorization requested for the following medication: Medication: insulin glargine (lantus solostar) 100 unit/mL Provider: Dr. Farrar Insurance Company Name: [facility] Medicare Pharmacy Name: [facility] Telephone number: [phone] Please call patient once an update has been received. Chelo Prasad RN [facility]03-24-2025 Telephone encounter Note* Telephone Encounter - Annmarie Canada RN - 12/19/2024 5:57 PM EDT Pt called and is notified of providers message and instructions. Pt voices understanding. She will call OBGYNs office to see how long she wants her to hold it. Annmarie Canada RN [facility]03-24-2025 Miscellaneous Notes* Telephone Encounter - Annmarie Canada [...] Plavix for upcoming hysterectomy. Patient reports Dr. Isaac was leaning towards holding medication for 3 days but wanted patient to check with PCP to verify the length of time provider would recommend that she hold Plavix. Patient requests call back at [phone]. Josie Starks RN documented in this encounter[facility]03-[facility]-2025 Telephone encounter Note * Telephone Encounter - Preet Farrar DO - 12/19/2024 5:08 PM EDT Okay to hold Plavix for 3-5 days, depending on surgeon preference Preet Farrar DO [facility]03-24-2025 Telephone encounter Note* Telephone Encounter - Josie Starks RN - 12/19/2024 2:49 PM EDT Patient calls to ask about holding Plavix for upcoming hysterectomy. Patient reports Dr. Isaac was leaning towards holding medication for 3 days but wanted patient to check with PCP to verify the length of time provider would recommend that she hold Plavix. Patient requests call back at [phone]. Josie Starks RN [facility] [facility] Tele[facility] encounter Note* Telephone Encounter - Jacqueline Candelario APRN.CNP - 12/14/2024 5:40 PM EDT The following approved medication requests have been transmitted electronically. Requested Prescriptions Signed Prescriptions Disp Refills dulaglutide (TRULICITY) 0.75 mg/0.5 mL pen injector 6 mL 2 Sig: Inject 0.75 mg subcutaneously one time a week. Authorizing Provider: JACQUELINE CANDELARIO APRN.CNP [facility]03-19-2025 Miscellaneous Notes* Telephone Encounter - Jacqueline Candelario [...] PM EDT [facility] Insurance won't pay for Victoza. * Telephone Encounter - Jacqueline Candelario APRN.CNP - 12/14/2024 5:12 PM EDT Ok to use generic form. Yes, I would wait to start new medication until after recovery of surgery. Thank you, Jaqcueline Candelario APRN.BILLBOARD POSTER * Telephone Encounter - Chelo Prasad RN [...] reply. Chelo Prasad RN documented in this encounterUniversity Hospitals Parma [facility] Center03-19-2025 Telephone encounter Note * Telephone Encounter - Sahara Mejia LPN - 12/14/2024 5:36 PM EDT [facility]. [facility] Insurance won't pay for Victoza. [facility]03-19-2025 Telephone encounter Note* Telephone Encounter - Jacqueline Candelario APRN.CNP - 12/14/2024 5:12 PM EDT Ok to use generic form. Yes, I would wait to start new medication until after recovery of surgery. Thank you, Jacqueline Candelario APRN.BILLBOARD POSTER [facility]03-19-2025 Telephone encounter Note* Telephone Encounter - Chelo [...] call patient with reply. Chelo Prasad RN [facility]03-19-2025 NoteHNO ID: [id number] Author: PREET FARRAR, DO Service: ? Author Type: Physician Type: Progress Notes Filed: 12/14/2024 12:07 Note Text: Patient presents with: Pre-Op Exam: hysterectomy HPI: Deonte Blanco is a 69 year old female [...] insurance. She has upcoming MEREDITH with Dr. Isaac She denies any CP or dyspnea or [...] time. She does not check BP's generally. Deonte likes to exercise by walking on treadmill. [...] tablet by mouth ever (more content not included)...[facility]03-19-2025 History of Present illness Narrative* Preet Farrar, - 12/14/2024 12:02 PM EDT Patient presents with: Pre-Op Exam: hysterectomy HPI: Deonte Blanco is a 69 year old female [...] insurance. She has upcoming MEREDITH with Dr. Isaac She denies any CP or dyspnea or [...] time. She does not check BP's generally. Deonte likes to exercise by walking on treadmill. [...] Type 2 DM - Uncontrolled . Insulin: Yes dexAMETHasone (DECADRON) 1 mg tablet Take the tablet at 11 pm and go for labs the next morning on fasting at 8 am Insulin [place], Disposable, (BD ULTRA-FINE MARIA T PEN NEEDLE) 32 gauge x 5/32 Use one needle for each dose. 1/day. ergocalciferol 50,000 unit capsule (VITAMIN D2, DRISDOL) Take 1 capsule by mouth two times a week. blood sugar diagnostic (BLOOD GLUCOSE TEST) test strip Test blood sugar(s) 2 times daily. Dx: Type 2 DM - Uncontrolled . 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 Discussed risks, benefits, alternatives, and potential side effects of medications. Patient expressed understanding and agreed with the plan. Preet Farrar DO [address] [place] [address] documented in this encounterUniversity Hospitals Parma Medical Center03-19-2025 Instructions* Patient Instructions* Preet Farrar DO - 12/14/2024 11:45 AM EDT Start the Victoza 0.6 mg once a day for blood sugar control Stop the Januvia when you start this for your diabetes documented in this encounterUniversity Hospitals Parma [facility] Center03-17-2025 Evaluation note* Diagnosis Onset Date Resolution Status Admit Date Endometrial hyperplasia with out atypia acute December 12, 2024 10:49am Endometrial hyperplasia with out atypia acute December 27, 2024 8:20am History of total vaginal hysterectomy (TVH) acute December 27 8:20am Atherosclerotic vascular disease chronic December 27, 2024 8:20am Carotid artery disease chronic 2024 8:20am Dyslipidemia chronic December 27 8:20am History of CVA (cerebrovascu lar accident) chronic December 27, 2024 8:20am Hypertension chronic December 27 8:20am Renal artery stenosis chronic Dec 8:20am Endometrial hyperplasia with out atypia acute January 09, 2025 10:57am Aortic valve stenosis with insufficiency chronic January 26, 2025 2: 04pm Atherosclerotic vascular disease chronic January 26, 2025 2: 04pm Carotid artery disease chronic 5 2:04pm Diabetes chronic January 26, 2025 2:04pm Dyslipidemia chronic January 26 2:04pm History of CVA (cerebrovascu lar accident) chronic January 26, 2025 2: 04pm Hypertension chronic January 26 2:04pm Hypothyroidism chronic January 26, 2 025 2:04pm Renal artery stenosis chronic January 26, 2025 2:04pm Encounter for postoperative care noneactive February 06, 2025 10:49am [facility] Work Phone: 1(851) 648-895803-06-2025 Telephone encounter Note* Telephone Encounter - Yesi Kitchen RN - 12/01/2024 11:26 AM EST Pt states she needs this refill by the Thursday. [facility] had her ask for a refill on [...] Kitchen RN December 01, 2024 11:26 AM [facility]03-06-2025 Miscellaneous Notes* Telephone Encounter - Yesi Kitchen RN - 12/01/2024 11:26 AM EST Pt states she needs this refill by the Thursday. Low Suarez had her ask for a refill on [...] 01, 2024 11:26 AM documented in this encounterUniversity Hospitals Parma [facility] Center03-04-2025 Telephone encounter Note * Telephone Encounter - [...] Coffey RN November 29, 2024 12:13 PM [facility]03-04-2025 Miscellaneous Notes* Telephone Encounter - Suzanna Coffey [...] 29, 2024 12:13 PM documented in this encounterUniversity Hospitals Parma Medical Center02-14-2025 Instructions* Patient Instructions* Bean Isaac MD - [...] hor ones are abnormal documented in this encounterUniversity Hospitals Parma Medical Center02-14-2025 NoteHNO ID: [id number] Author: MADIE BRUCE MA Service: ? Author Type: Talent Development Coordinator Type: Progress Notes Filed: 11/11/2024 18:16 Note Text:[facility]02-14-2025 History of Present illness Narrative* Madie Bruce MA - 11/11/2024 9:56 AM EST Images from the original note were not included. * Bean Isaac MD - 11/11/2024 9:46 AM EST [facility] Follow up note Referred by: PCP- Preet Farrar DO History of Present illness: Deonte Blanco is a 69 year old female [...] carbs . Lifestyle -Exercise: 30 mins on [employer] daily -Diet: Breakfast: 3 eggs, 1 slice [...] E11.65 Insulin: Yes 150 Strip 11 Insulin [place], Disposable, (BD ULTRA-FINE MARIA T PEN NEEDLE) 32 gauge x /32 Use one needle for each dose. 1/day. 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 Bean Isaac MD Endocrinology Associate Staff [facility] Endocrinology and Metabolism Emily [phone] Medical Decision Making: Medical Decision Making Level: 1 - N/A documented in this encounterUniversity Hospitals Parma Medical Center02-14-2025 NoteHNO ID: [id number] Author: BEAN ISAAC MD Service: ? Author Type: Physician Type: Progress Notes Filed: 11/11/2024 18:16 Note Text: [facility] Follow up note Referred by: PCP- Preet Farrar DO History of Present illness: Deonte Blanco is a 69 year old female [...] carbs . Lifestyle -Exercise: 30 mins on [employer] daily -Diet: Breakfast: 3 eggs, 1 slice [...] sweating, flushing, darkening o (more content not included)...[facility] 11-01-2024 Telephone encounter Note* Telephone Encounter - [...] Ulloa LPN November 01, 2024 8:03 AM [facility]02-04-2025 Miscellaneous Notes* Telephone Encounter - Fernanda Ulloa [...] 01, 2024 8:03 AM documented in this encounterUniversity Hospitals Parma Medical Center01-11-2025 NoteHNO ID: [id number] Author: PREET FARRAR, DO Service: ? Author Type: Physician Type: Progress Notes Filed: 10/08/2024 08:39 Note Text: Patient presents with: Medicare Wellness Exam HPI: Deonte Blanco is a 69 year old female who presents to the office today for review of health conditions. Concerns today: She is starting to see Banking Management Consulting Manager for opinion regarding her thyroid and fatigue [...] a vaginal assisted total hysterectomy by Dr. Isaac on 12/27 upcoming. Hx of tobacco use [...] time. She does not check BP's generally. Deonte gets minimal exercise. PAST MEDICAL HISTORY Diagnosis [...] (DECADRON) 1 mg tablet (more content not included)...[facility]01-11-2025 History of Present illness Narrative* Preet Farrar DO - 10/08/2024 8:34 AM EST Patient presents with: Medicare Wellness Exam HPI: Deonte Blanco is a 69 year old female who presents to the office today for review of health conditions. Concerns today: She is starting to see Banking Management Consulting Manager for opinion regarding her thyroid and fatigue [...] a vaginal assisted total hysterectomy by Dr. Isaac on 12/27 upcoming. Hx of tobacco use [...] time. She does not check BP's generally. Deonte gets minimal exercise. PAST MEDICAL HISTORY Diagnosis [...] Type 2 DM - Uncontrolled Insulin: Yes dexAMETHasone (DECADRON) 1 mg tablet Take the tablet at 11 pm and go for labs the next morning on fasting at 8 am Insulin [place], Disposable, (BD ULTRA-FINE MARIA T PEN NEEDLE) [...] 249.80, ICD10: E08.69 See above F/u with Banking Management Consulting Manager as scheduled. 5. Hypothyroidism, unspecified type - [...] agreed with the plan. Preet Farrar DO [address] [place] [address] * Preet Farrar DO - 10/08/2024 8:33 AM EST Images from the original note were not included. Deonte Blanco is a 69 year old female [...] provided Preet Farrar DO documented in this encounterUniversity Hospitals Parma Medical Center01-11-2025 NoteHNO ID: [id number] Author: PREET FARRAR DO Service: ? Author Type: Physician Type: Progress Notes Filed: 10/08/2024 08:39 Note Text: Deonte Blanco is a 69 year old female [...] - Personalized prevention plan provided Preet Farrar [facility]01-07-2025 Telephone encounter Note* Telephone Encounter - Sahara Mejia LPN - 10/04/2024 9:29 AM EST Pt. informed. [facility] Work Phone: 1(217) 405-475401-07-2025 Miscellaneous Notes* Telephone Encounter - Sahara Mejia [...] checked Thank you ! documented in this encounterUniversity Hospitals Parma Medical Center01-07-2025 Telephone encounter Note * Telephone Encounter - Marika Carolina PA-C - 10/04/2024 9:00 AM EST Labs ordered Marika Carolina PA-C 10/04/2024 [facility]01-07-2025 Telephone encounter Note* Telephone Encounter - Donna Kimble MA - 10/04/2024 7:47 AM EST Please see patient request she had blood work done 05/21 Donna Kimble MA [facility]01-07-2025 Telephone encounter Note* Telephone Encounter - Maegan Winters - 10/04/2024 7:30 AM EST Pt came in requesting lab work prior to her 10/07 tex, pt wants routine labs and her thyroid checked Thank you ! [facility]12-17-2024 Telephone encounter Note* Telephone Encounter - Preet Farrar DO - 09/13/2024 4:24 PM EST Jerry Farrar DO [facility]12-17-2024 Miscellaneous Notes* Telephone Encounter - Preet Farrar DO - 09/13/2024 4:24 PM EST Noted Preet Farrar DO * Telephone Encounter - Sahara Mejia LPN - 09/12/2024 1:17 PM EST Pt. dropped of glucose numbers for Dr. Farrar to review. documented in this encounterUniversity Hospitals Parma Medical Center12-17-2024 Evaluation note* Diagnosis Onset Date Resolution Status Admit Date Endometrial hyperplasia with out atypia acute September 13, 1:45pm Endometrial hyperplasia with out atypia acute [...] 8:20am Renal artery stenosis chronic Dec 8:20am [facility] Work Phone: 1(629) 860-624612-16-2024 Telephone encounter Note* Telephone Encounter - Sahara Mejia LPN - 09/12/2024 1:17 PM EST Pt. dropped of glucose numbers for Dr. Farrar to review. [facility] Work Phone: 1(287) 246-997412-06-2024 Telephone encounter Note* Telephone Encounter - Yesi [...] daily. Yesi Kitchen RN 2024 11:04 AM [facility]12-06-2024 Miscellaneous Notes* Telephone Encounter - Yesi Kitchen [...] RN 2024 11:04 AM documented in this encounterUniversity Hospitals Parma Medical Center11-14-2024 Telephone encounter Note * Telephone Encounter - [...] Nevarez LPN August 11, 2024 2:26 PM [facility]11-14-2024 Miscellaneous Notes* Telephone Encounter - Kerry Nevarez [...] 11, 2024 2:26 PM documented in this encounterUniversity Hospitals Parma Medical Center11-14-2024 Instructions* Patient Instructions* Bean Isaac MD - [...] for diabetes for now documented in this encounterUniversity Hospitals Parma Medical Center11-14-2024 NoteHNO ID: [id number] Author: BEAN ISAAC MD Service: ? Author Type: Physician Type: Progress Notes Filed: 08/11/2024 18:10 Note Text: [facility] Follow up note Referred by: PCP- Preet Farrar DO History of Present illness: Deonte Blanco is a 68 year old female [...] pill . Lifestyle -Exercise: 30 mins on [employer] daily -Diet: Breakfast: 3 eggs, 1 slice [...] ablation for Grave's disease (more content not included)...[facility]11-14-2024 History of Present illness Narrative* Bean Isaac MD - 08/11/2024 9:51 AM EST [facility] Follow up note Referred by: PCP- Preet Farrar DO History of Present illness: Deonte Blanco is a 68 year old female [...] pill . Lifestyle -Exercise: 30 mins on [employer] daily -Diet: Breakfast: 3 eggs, 1 slice [...] mouth once daily. 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 Bean Isaac MD Endocrinology Associate Staff [facility] Endocrinology and Metabolism Emily [phone] Medical Decision Making: Problems: Moderate: 1+ chronic illnesses with change Data: Unique test result(s) reviewed: 3+ Independent interpretation of test from other physician/QHCP Risk: Moderate: Moderate risk from testing/treatment Medical Decision Making Level: 4 - Moderate documented in this encounterUniversity Hospitals Parma Medical Center11-12-2024 NoteHNO ID: [id number] Author: JACKSON SARAVIA MA Service: ? Author Type: Talent Development Coordinator Type: Progress Notes Filed: 08/09/2024 12:51 Note Text: POPULATION HEALTH NAVIGATION OUTREACH Action/August 09, 2024 AWV INITIATIVE Reason for Outreach Care Gap/HCC or Scheduling Wellness Visits Care Gaps due: Medicare Annual Wellness Visit Patient Contacted: Unable or unnecessary to reach patient: Flipped existing appointment Updated appointment notes Navigation Signature: Jackson Saravia MA August 09, 2024 12:51 [facility]11-12-2024 History of Present illness Narrative* Jackson Saravia [...] 09, 2024 12:51 PM documented in this encounterUniversity Hospitals Parma Medical Center11-12-2024 NotePatient Outreach (NETNAV) DEONTE BLANCO G ([id number]) 1955 F Date Time Provider Department 08/09/24 JACKSON SARAVIA During your visit today, we recorded the following information about you: Jackson Saravia MA 08/09/2024 12:51 PM Signed POPULATION HEALTH NAVIGATION OUTREACH Action/FYI August 09, 2024 AWV INITIATIVE Reason for Outreach [...] Visit: Population Health Navigation Outreach [3910] Cmt: AWV INITIATIVE Prescriptions as of 08/09/2024 - pantoprazole DR (PROTONIX) 40 mg tablet Take 1 tablet by mouth once daily. - Insulin [place], Disposable, (BD ULTRA-FINE MARIA T PEN NEEDLE) [...] 03/23/2024 Encounter Status:Closed by JACKSON SARAVIA on 08/09/24[facility] 07-26-2024 [facility]10-28-2024 Telephone encounter Note* Telephone Encounter - Adelita Gomez MA - 07/25/2024 4:48 PM EDT Pt notified. Adelita Gomez MA [facility]10-28-2024 Miscellaneous Notes* Telephone Encounter - Adelita Gomez [...] Patient is having DNC done on 07/26/2024. [facility] had faxed over surgical clearance form on 07/19/2024. This is on provider's desk. Patient is very worried about her blood sugars. * Telephone Encounter - Sahara Mejia LPN - 07/15/2024 10:55 AM EDT Blood Sugar results brought in by patient.Placed on Dr. Farrar desk. documented in this encounterUniversity Hospitals Parma Medical Center10-28-2024 Telephone encounter Note * Telephone Encounter - Preet Farrar DO - 07/25/2024 4:35 PM EDT Noted, would still recommend increased dose of lantus as below Preet Farrar DO [facility]10-28-2024 Telephone encounter Note* Telephone Encounter - Sahara Mejia LPN - 07/25/2024 10:55 AM EDT Forms faxed as below. [facility]10-28-2024 Miscellaneous Notes* Telephone Encounter - Sahara Coulter LPN - 07/25/2024 10:55 AM EDT Forms faxed as below. * Telephone Encounter - Chelo Prasad RN - 07/25/2024 10:48 AM EDT Lali at [facility] called again regarding this pt. Pt is to have procedure tomorrow and they are asking if Dr. Farrar's office received surgical clearance forms last week-they are in need of them being completed. Asking if someone can call them today with an update on the forms. Call Lali at [phone]. Chelo Prasad RN * Telephone Encounter - Sahara Mejia LPN - 07/19/2024 4:31 [address] Form on Dr. Farrar's desk * Telephone Encounter - Annmarie Canada RN - 07/19/2024 11:27 AM EDT Lali with [facility] called in and reports she had faxed over the surgical clearance form on 07/15/24. I let them know it wasn't charted that they had received it, so she is goingto send it again. Pt is going to have a DNC on 07/26/24, please fill out and fax back. Faxed recentthyroid labs and labs from April to [phone]. Let them know the other recent labs were external, and they would have to get them from [facility]. documented in this encounterUniversity Hospitals Parma Medical Center10-28-2024 Telephone encounter Note * Telephone Encounter - Chelo Prasad RN - 07/25/2024 10:48 AM EDT Lali at [facility] called again regarding this pt. Pt is to have procedure tomorrow and they are asking if Dr. Farrar's office received surgical clearance forms last week-they are in need of them being completed. Asking if someone can call them today with an update on the forms. Call Lali at [phone]. Chelo Prasad RN [facility]10-28-2024 Telephone encounter Note* Telephone Encounter - Sahara Mejia LPN - 07/25/2024 9:55 AM EDT Pt. increased Amaryl to 3 mg. didn't feel it was working. Pt. feels it has been a few points lower around 150's to 160's [facility]10-26-2024 Telephone encounter Note* Telephone Encounter - Preet Farrar DO - 07/23/2024 11:33 AM EDT Does she need a refresher for nutrition or diabetes education? Increase lantus to 18 units once a day SQ Preet Farrar DO [facility]10-24-2024 Telephone encounter Note* Telephone Encounter - Lisa Aparicio RN - 07/21/2024 8:18 AM EDT Patient notified of results and provider's instructions. Patient verbalizes understanding. Lisa Aparicio RN [facility]10-24-2024 Miscellaneous Notes* Telephone Encounter - Lisa Aparicio [...] tablet Preet Farrar DO documented in this encounterUniversity Hospitals Parma Medical Center10-24-2024 Telephone encounter Note * Telephone Encounter - [...] Patient is having DNC done on 07/26/2024. [facility] had faxed over surgical clearance form on 07/19/2024. This is on provider's desk. Patient is very worried about her blood sugars. T [facility]10-23-2024 Telephone encounter Note* Telephone Encounter - Preet [...] hormone in this tablet Preet Farrar DO T [facility]10-22-2024 Telephone encounter Note* Telephone Encounter - Sahara Mejia LPN - 07/19/2024 4:[address] Form on Dr. Farrar's desk [facility]10-22-2024 Telephone encounter Note* Telephone Encounter - Annmarie Canada RN - 07/19/2024 11:27 AM EDT Lali with [facility] called in and reports she had faxed over the surgical clearance form on 07/15/24. I let them know it wasn't charted that they had received it, so she is goingto send it again. Pt is going to have a DNC on 07/26/24, please fill out and fax back. Faxed recentthyroid labs and labs from April to [phone]. Let them know the other recent labs were external, and they would have to get them from [facility]. [facility]10-18-2024 Telephone encounter Note* Telephone Encounter - Sahara Mejia LPN - 07/15/2024 10:55 AM EDT Blood Sugar results brought in by patient.Placed on Dr. Farrar desk. [facility]09-20-2024 Telephone encounter Note* Telephone Encounter - Suzanna Coffey RN - 06/17/2024 11:42 AM EDT Patient reports [facility] ER prescribed her pantoprazole 40 mg daily, about a month ago, and she needs refills, only has 5 pills left. States she forgot to tell pcp about this at her recent appt. Last ov with pcp: 06-14-24 Next ov: 10-07-24 [facility]09-20-2024 Miscellaneous Notes* Telephone Encounter - Suzanna Coffey RN - 06/17/2024 11:42 AM EDT Patient reports [facility] ER prescribed her pantoprazole 40 mg daily, about a month ago, and she needs refills, only has 5 pills left. States she forgot to tell pcp about this at her recent appt. Last ov with pcp: 06-14-24 Next ov: 10-07-24 documented in this encounterUniversity Hospitals Parma Medical Center09-18-2024 Telephone encounter Note * Telephone Encounter - Kerry Nevarez LPN - 06/15/2024 9:53 AM EDT Patient calling asking to have another pen needle rx, she called pharmacy since other rx was causing so much bruising for her. Pending new rx to file to [facility] pharmacy. Please advise The patient has been [...] Requested Prescriptions Pending Prescriptions Disp Refills Insulin [place], Disposable, (BD ULTRA-FINE MARIA T PEN NEEDLE) 32 gauge x 5/32 100 Each 11 Sig: Use one needle for each dose. 1/day. Kerry Nevarez LPN June 15, 2024 9:58 AM [facility]09-18-2024 Miscellaneous Notes* Telephone Encounter - Kerry Nevarez LPN - 06/15/2024 9:53 AM EDT Patient calling asking to have another pen needle rx, she called pharmacy since other rx was causing so much bruising for her. Pending new rx to file to [facility] pharmacy. Please advise The patient has been [...] Requested Prescriptions Pending Prescriptions Disp Refills Insulin Succ[place], Disposable, (BD ULTRA-FINE MARIA T PEN NEEDLE) 32 gauge x 5/32 100 Each 11 Sig: Use one needle for each dose. 1/day. Kerry Nevarez LPN June 15, 2024 9:58 AM documented in this encounterUniversity Hospitals Parma Medical Center09-17-2024 NoteHNO ID: [id number] Author: PREET FARRAR, DO Service: ? Author Type: Physician Type: Progress Notes Filed: 06/14/2024 16:37 Note Text: Patient presents with: F/U 3 Month HPI: Deonte Blanco is a 68 year old female [...] thickened endometrial lining. Has been seen by FISH DRESSING MACHINE FEEDER and had EMB and will be having a consult with Dr. Froylan Farnsworth FISH DRESSING MACHINE FEEDER on 07/07 to potentially schedule MEREDITH. She [...] time. She does not check BP's generally. Deonte gets sporadic irregular exercise. PAST MEDICAL HISTORY [...] 1 tablet by mouth once daily. Insulin Succ[place]unna, Disposable, (PEN NEEDLE) 29 gauge x 1/2 Use one needle per dose. 1 per day glimepiride (AMARYL) 2 mg tablet Take 1 tablet by mouth two times a day with meals. SITagliptin phosphate (JANUVIA) 100 mg tablet Take 1 tablet by mouth once daily. carvedilol (COREG) 6.25 mg tablet Take 1 tablet by mouth two times a day with (more content not included)...[facility]09-17-2024 History of Present illness Narrative* Preet Farrar, DO - 06/14/2024 2:40 PM EDT Patient presents with: F/U 3 Month HPI: Deonte Blanco is a 68 year old female [...] thickened endometrial lining. Has been seen by FISH DRESSING MACHINE FEEDER and had EMB and will be having a consult with Dr. Froylan Farnsworth FISH DRESSING MACHINE FEEDER on 07/07 to potentially schedule MEREDITH. She [...] time. She does not check BP's generally. Deonte gets sporadic irregular exercise. PAST MEDICAL HISTORY [...] 1 tablet by mouth once daily. Insulin Succasunna, Disposable, (PEN NEEDLE) 29 gauge x 1/2 [...] with the plan. Preet Farrar DO [address] [place] [address] documented in this encounterUniversity Hospitals Parma Medical Center08-28-2024 History of Present illness Narrative* Catalina Young APRN.BILLBOARD POSTER - 05/25/2024 2:40 PM EDT 05/25/2024 Patient presents with: ER F/U: 05/22/2024 [facility] for left lower quadrant pain SUBJECTIVE: This is a 68 year old that is here today for Above Complaints. HOSPITAL/ER FOLLOW UP: Reason for visit: abdominal pain Which facility: [facility] Date of visit: 05/22/2024 Diagnosis: [...] 1 tablet by mouth once daily. Insulin Succasunna, Disposable, (PEN NEEDLE) 29 gauge x 1/2 [...] suspiciousactivity was identified. 05/25/2024 by Catalina Young APRN.CNP - follow-up with FISH DRESSING MACHINE FEEDER and PCP Catalina Young APRN.CNP Prescription instructions reviewed with patient as applicable. [...] Level: 4 - Moderate documented in this encounterCleveland [id number] NoteHNO ID: [id number] Author: CATALINA YOUNG APRN.BILLBOARD POSTER Service: ? Author Type: Nurse Practitioner Type: Progress Notes Filed: 05/25/2024 15:19 Note Text: 05/25/2024 Patient presents with: ER F/U: 05/22/2024 [facility] for left lower quadrant pain SUBJECTIVE: This is a 68 year old that is here today for Above Complaints. HOSPITAL/ER FOLLOW UP: Reason for visit: abdominal pain Which facility: [facility] Date of visit: 05/22/2024 Diagnosis: [...] 1 tablet by mouth once daily. Insulin Succasunna, Disposable, (PEN NEEDLE) 29 gauge x 1/2 [...] DTaP,Tdap,Td Vaccine(1 - Td (more content not included)...[facility]08-26-2024 Telephone encounter Note* Telephone Encounter - Suzanna [...] Coffey RN May 23, 2024 1:16 PM [facility]08-26-2024 Miscellaneous Notes* Telephone Encounter - Suzanna Coffey [...] 23, 2024 1:16 PM documented in this encounterUniversity Hospitals Parma Medical Center08-26-2024 Telephone encounter Note * Telephone Encounter - Fernanda Ulloa LPN - 05/23/2024 9:31 AM EDT Pt called in and was seen in the [facility] ER last night 05-22-24 for left side abdominal pain. Pt had a CT done. Showed thickened endometrial lining of 1/4 cm no other acute findings. pt's provider/team not available. Pt scheduled with provider. Fernanda Ulloa LPN [facility]08-26-2024 Miscellaneous Notes* Telephone Encounter - Fernanda Ulloa LPN - 05/23/2024 9:31 AM EDT Pt called in and was seen in the [facility] ER last night 05-22-24 for left side abdominal pain. Pt had a CT done. Showed thickened endometrial lining of 1/4 cm no other acute findings. pt's provider/team not available. Pt scheduled with provider. Fernanda Ulloa LPN documented in this encounterUniversity Hospitals Parma Medical Center08-13-2024 Instructions* Patient Instructions* Bean Isaac MD - 05/10/2024 2:25 PM EDT Please continue the same dose of medication for now- please bring log next time documented in this encounterUniversity Hospitals Parma Medical Center08-13-2024 Telephone encounter Note * Telephone Encounter - Sahara Mejia LPN - 05/10/2024 2:05 PM EDT Pt. dropped of Bp readings. Placed on Dr. Farrar's desk. [facility] Work Phone: 1(217) 603-634508-13-2024 Miscellaneous Notes* Telephone Encounter - Sahara Mejia LPN - 05/10/2024 2:05 PM EDT Pt. dropped of Bp readings. Placed on Dr. Farrar's desk. documented in this encounterUniversity Hospitals Parma Medical Center08-13-2024 History of Present illness Narrative* Bean Isaac MD - 05/10/2024 1:43 PM EDT [facility] Initial Clinic Visit Note Referred by: PCP- Preet Farrar DO History of present illness: Deonte Blanco is a 68 year old female [...] awareness: n/a Lifestyle -Exercise: 30 mins on [employer] daily -Diet: Breakfast: 3 eggs, 1 slice [...] Outpatient Medications Medication Sig Dispense Refill Insulin Succasunna, Disposable, (PEN NEEDLE) 29 gauge x 1/2 [...] 100 Each 11 flash glucose scanning reader (MyCareSTYLE TARA 2 READER) 1 Device as directed. 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 Bean Isaac MD Endocrinology Associate Staff [facility] Endocrinology and Metabolism Emily [phone] Medical Decision Making: Problems: Moderate: 1+ chronic illnesses with change Data: Unique test result(s) reviewed: 3+ Independent interpretation of test from other physician/QHCP Medical Decision Making Level: 4 - Moderate documented in this encounterUniversity Hospitals Parma Medical Center07-23-2024 Miscellaneous Notes* Telephone Encounter - Sahara Mejia [...] off. Lisa Aparicio RN documented in this encounterUniversity Hospitals Parma Medical Center07-23-2024 Telephone encounter Note * Telephone Encounter - Sahara Mejia LPN - 04/19/2024 4:56 PM EDT Pt. informed. [facility]07-23-2024 Telephone encounter Note* Telephone Encounter - Preet Farrar DO - 04/19/2024 4:49 PM EDT Ok to take the Lantus in the AM or the PM, whichever she will be consistent with daily. Increase dose to 12 units and notify in 2-3 weeks her blood glucose readings. They are improving Preet Farrar DO [facility]07-23-2024 Telephone encounter Note* Telephone Encounter - Yesi [...] sugars pt has already brought in too. [facility]07-16-2024 Telephone encounter Note* Telephone Encounter - Sofia Rodriguez MA - 04/12/2024 4:04 PM EDT Glucose readings on JG desk. Will await new glucose readings. Sofia Rodriguez MA [facility]07-16-2024 Telephone encounter Note* Telephone Encounter - Lisa [...] she previously dropped off. Lisa Aparicio RN [facility]06-26-2024 Telephone encounter Note* Telephone Encounter - Donna Kimble MA - 03/23/2024 10:47 AM EDT Patient was notified Donna Kimble MA [facility]06-26-2024 Miscellaneous Notes* Telephone Encounter - Donna Kimble [...] Requested Prescriptions Signed Prescriptions Disp Refills Insulin Succasunna, Disposable, (PEN NEEDLE) 29 gauge x 1/2 [...] doses? /Preet Farrar DO documented in this encounterUniversity Hospitals Parma Medical Center06-26-2024 Telephone encounter Note * Telephone Encounter - Preet Farrar DO - 03/23/2024 7:54 AM EDT Needs to increase her armor thyroid to 120 mg 7 days a week Preet Farrar DO [facility]06-25-2024 Telephone encounter Note* Telephone Encounter - Annmarie [...] missed any doses.. Please call and advise. [facility]06-25-2024 Telephone encounter Note* Telephone Encounter - Preet Farrar DO - 03/22/2024 4:45 PM EDT The following approved medication requests have been transmitted electronically. Requested Prescriptions Signed Prescriptions Disp Refills Insulin Succasunna, Disposable, (PEN NEEDLE) 29 gauge x 1/2 100 Each 11 Sig: Use one needle per dose. 1 per day Authorizing Provider: PREET FARRAR DO [facility]06-25-2024 Telephone encounter Note* Telephone Encounter - Annmarie [...] list. Pt needs needles by tomorrow morning. [facility]06-25-2024 Telephone encounter Note* Telephone Encounter - Gretchen [...] uses DDM in [place]. Gretchen Dorantes LPN [facility]06-25-2024 Telephone encounter Note* Telephone Encounter - Preet Farrar DO - 03/22/2024 7:27 AM EDT Please inform patient that her free t4 level is low. TSH is stable. What does of armour thyroid supplement is she taking? Any missed doses? /Preet Farrar DO [facility]06-24-2024 History of Present illness Narrative* Preet Farrar DO - 03/21/2024 10:21 AM EDT Transitional Care Management TCM Eligibility Documentation The following information was gathered during patient outreach 03/10/2024 Date of Outreach: Outreach Attempt 1: Contact Made Date of Discharge 03/09/2024 Provider Documentation Deonte Blanco is a 68 year old female [...] GI upset. When she was seen at [facility] for hyperglycemia and fatigue as [...] managing myla Farrar DO documented in this encounterUniversity Hospitals Parma Medical Center06-13-2024 History of Present illness Narrative* Suzanna Coffey RN - 03/10/2024 1:20 PM EDT Patient is scheduled for Hosp f/u with Dr. Farrar on 03-21-24. * Jacqueline Candelario APRN.CNP - 03/10/2024 12:24 PM EDT Please make appointment. Thank you, Jacqueline Candelario APRN.DEREK * Suzanna Coffey RN - 03/10/2024 8:06 AM EDT TRANSITION CARE MANAGEMENT (TCM) INITIAL CONTACT Talent Development Coordinator Outreach Provider Action/FYI: Patient would like to discuss ozempic- concern hospital stopping it- and what to do about her DM. Initial contact with patient post discharge, spoke to patient. Patient identified by name and . TRANSITION CARE MANAGEMENT INITIAL OUTREACH DOCUMENTATION: 03/10/2024 Date of Outreach: Outreach Attempt 1: Contact Made Date of Discharge 03/09/2024 SUMMARY: -Pt discharged from [facility] on 03-09-24. -Admitted for: Gastrointestinal [...] from recent hospitalization: Epic documented in this encounterUniversity Hospitals Parma Medical Center06-03-2024 Telephone encounter Note * Telephone Encounter - Neva Thomas LPN - [...] Please advise. Thank you. Neva Thomas LPN. [facility]06-03-2024 Miscellaneous Notes* Telephone Encounter - Neva Thomas [...] you. Neva Thomas LPN. documented in this encounterUniversity Hospitals Parma Medical Center05-20-2024 Telephone encounter Note * Telephone Encounter - Latosha Osei RN - 02/15/2024 4:32 PM EDT Spoke with patient. Given message from provider's office. Patient verbalizes understanding. Latosha Osei RN [facility]05-20-2024 Miscellaneous Notes* Telephone Encounter - Latosha Osei [...] normal. No concerns. Thank you, Jacqueline Candelario APRN.BILLBOARD POSTER * Telephone Encounter - Latosha Osei RN - 02/15/2024 1:33 PM EDT Deonte Blanco is a 68 year old female [...] recommendations. Latosha Osei RN documented in this encounterUniversity Hospitals Parma Medical Center05-20-2024 Telephone encounter Note * Telephone Encounter - Jacqueline Candelario APRN.CNP - 02/15/2024 4:28 PM EDT No dietary restrictions needed -- she eats very healthy to begin with. Elevation after meals is expected and normal. No concerns. Thank you, Jacqueline Candelario APRN.DEREK [facility]05-20-2024 Telephone encounter Note* Telephone Encounter - Latosha Osei RN - 02/15/2024 1:33 PM EDT Deonte Blanco is a 68 year old female [...] sugar readings. Asking for dietary recommendations. Latosha Osei, RN [facility]05-07-2024 Telephone encounter Note* Telephone Encounter - Annmarie [...] Please advise. Thank you. Annmarie Canada RN. T [facility]05-07-2024 Miscellaneous Notes* Telephone Encounter - Annmarie Canada [...] you. Annmarie Canada RN. documented in this encounterUniversity Hospitals Parma Medical Center05-01-2024 History of Present illness Narrative* Jacqueline Candelario APRN.BILLBOARD POSTER - 01/27/2024 10:56 AM EDT Chief Complaint Patient presents with: follow up on b/s: States thinks yeast infection back which is a large side effect of Jardiance. States not going to keep going through this HPI Deonte Blanco is a 68 year old female who presents here today for Above Complaints. Deonte is an established patient of Dr. Farrar, [...] agreeable to treatment plan. Jacqueline Corbin APRN.CNP [address] [place] [address] documented in this encounterUniversity Hospitals Parma Medical Center04-17-2024 Miscellaneous Notes* Telephone Encounter - Kerry Nevarez LPN - 01/13/2024 2:48 PM EDT Patient returned call and went over notes below from Jacqueline Candelario TECHNICAL PROFESSIONAL with understanding. Aware rx sent to pharmacy. [...] will discuss options. Thank you, Jacqueline Candelario APRN.CNP * Telephone Encounter - Tahira Stern LPN - 01/13/2024 2:06 PM EDT Patient calling again, asking if she should stop the Jardiance because she does not want chronic yeast infections. Please advise. * Telephone Encounter - Kerry Nevarez LPN - 01/12/2024 3:16 PM EDT Patient calling she was treated for yeast infection on 01/01 from [facility]. Now she has same symptoms itching and white vaginal drainage. Patient now wondering if it is from taking Jardiance. Patient said her blood sugars have been higher in the morning at times. She said she is taking Ozempic and Jardiance. Patient uses [facility] for her pharmacy. Please advise documented in this encounterUniversity Hospitals Parma Medical Center04-10-2024 History of Present illness Narrative* Jacqueline Candelario APRN.BILLBOARD POSTER - 01/06/2024 11:00 AM EDT Chief Complaint Patient presents with: blood sugars up and down: States does not know how to eat keeps going up after eating. HPI Deonte Blanco is a 68 year old female who presents here today for Above Complaints. Deonte is an established patient of Dr. Farrar, [...] encouraged pt to consider speaking with a hyperbaric technician/recruiting and selection consultant to discuss diet management, if agreeable. [...] day with meals. flash glucose scanning reader (SonicPollen TARA 2 READER) 1 Device as directed. [...] Patient agreeable to treatment plan. Jacqueline Corbin APRN.BILLBOARD POSTER [address] [place] [address] documented in this encounterUniversity Hospitals Parma Medical Center04-10-2024 Miscellaneous Notes* Telephone Encounter - Jacqueline Candelario [...] encouraged pt to consider speaking with a hyperbaric technician/recruiting and selection consultant to discuss diet management, if agreeable. Patient would rather hold off on speaking with a specialist as of this time. Asking if Dr. Farrarwould be able to advise her at this time? Thank you. documented in this encounterUniversity Hospitals Parma Medical Center04-10-2024 Miscellaneous Notes* Telephone Encounter - Fernanda Ulloa [...] you. Fernanda Ulloa LPN. documented in this encounterUniversity Hospitals Parma Medical Center04-07-2024 Miscellaneous Notes* Telephone Encounter - Altagracia Welch APRN.DEREK - 01/03/2024 8:03 AM EDT Patient identified by name and date of . Patient advised of + yeast and BV test result. She was prescribed diflucan at yesterday's visit. I sent Rx for Flagyl to her pharmacy today. Altagracia Welch APRN.DEREK documented in this encounterUniversity Hospitals Parma Medical Center04-06-2024 History of Present illness Narrative* Jemima Iyer APRN.DEREK - 01/02/2024 12:38 PM EDT This note was created using NoteWriter. Subjective Deonte Blanco is a 68 year old female. 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 Farrar The history is provided by the patient. No foreign language instructor was used. Vaginal Problem This is a [...] nursing note reviewed. Exam conducted with a electroplater present. Constitutional: General: She is not in [...] mg POC reveals sugar 140 Jemima Iyer APRN.BILLBOARD POSTER documented in this encounterUniversity Hospitals Parma Medical Center04-06-2024 Miscellaneous Notes* Telephone Encounter - Latosha Osei [...] body) 8. : NO Protocols used: Vaginal Eqgsdteh-GXPWH-UD, Vulvar Wiifpjpp-MTBZN-MU documented in this encounterUniversity Hospitals Parma Medical Center03-13-2024 History of Present illness Narrative* Prete Farrar, - 12/09/2023 6:05 PM EDT No chief complaint on file. HPI: Deonte Blanco is a 68 year old female who presents to the office today for review of health conditions. Concerns today: Recently she has been overwhelmed with stressors with the hospital taking her off her HTN medications and her BLOOD PRESSURE was out of control. She was seen in follow up after this by her Heating Worker Dr. Overton that she sees for BLOOD [...] week. She is willing to see a ammonium sulfate operator- hasn't had any obvious cardiac symptoms but [...] time. She does not check BP's generally. Deonte gets sporadic irregular exercise. PAST MEDICAL HISTORY [...] - ICD9: 440.1, ICD10: I70.1 F/u with Heating Worker, hx of 6. Other ulcerative colitis without [...] with the plan. Preet Farrar DO [address] [place] [address] documented in this encounterUniversity Hospitals Parma Medical Center03-12-2024 Miscellaneous Notes* Telephone Encounter - Kerry Nevarez [...] you. Kerry Nevarez LPN. documented in this encounterUniversity Hospitals Parma Medical Center02-28-2024 Miscellaneous Notes* Telephone Encounter - Kerry Nevarez [...] day as needed. Authorizing Provider: JACQUELINE CANDELARIO APRN.BILLBOARD POSTER * Telephone Encounter - Gretchen Dorantes LPN - 11/25/2023 8:18 AM EST At office visit 11/19/23 pt & [employer] discussed Burspar, pt has decided she would like to try it. Please send Rx to [facility] in [place] & notify pt when it has been sent in. Gretchen Dorantes LPN documented in this encounterUniversity Hospitals Parma Medical Center02-28-2024 Hospital Discharge instructions Patient Education 11/25/2023 03:00:04 [...] that stimulate the heart. This includes many pxge-rfv-tjefrkg cold and sinus decongestant pills and sprays, as well as diet pills. Check the warnings about high blood pressure onthe label. Before buying any zboq-vql-sanlmsv medicines or supplements, always ask the pharmacist [...] one of these at most pharmacies. The [place] [employer] recommends the following guidelines for [...] face You have problems speaking or seeing 2655-3247 [employer]. [address] [place] [address]. All rights reserved. This information is not intended as a substitute for professional medical care. Always follow yourhealthcare professional's instructions. Follow Up Care 11/24/2023 18:46:50 With:RAY OVERTON Address: [address] [place] [phone] When:2-4 days [facility] 02-28-2024 Emergency department Discharge summary Discharge Instructions Thank you for allowing [facility] to assist you with your healthcare needs. The following is importantdischarge information regarding your hospital visit. Diagnosis from Today's Visit Chest pain What to Do Next Instructions from Your Care Team No qualifying data available. Post Acute Orders No qualifying data available. You Need to Schedule the Following Appointments Follow Up with RAY OVERTON When Within 2-4 days Where: [address] [place] [phone] Allergies Glutens metFORMIN predniSONE salicylates sulfa drug [...] BY MOUTH AT BEDTIME Unchanged thyroid desiccated (Kinney Thyroid 120 mg oral tablet) 32 EA, [...] that stimulate the heart. This includes many xgur-ect-fuuxvfw cold and sinus decongestant pills and sprays, as well as diet pills. Check the warnings about high blood pressure onthe label. Before buying any zvzz-qjy-rddtibb medicines or supplements, always ask the pharmacist [...] one of these at most pharmacies. The [employer] recommends the following guidelines for [...] face You have problems speaking or seeing [phone] [employer]. [address] [place] [address], [place] [address]. All rights reserved. This information is not intended as a substitute for professional medical care. Always follow yourhealthcare professional's instructions. Additional Information VACCINATE! IT SAVES LIVES! Members of the community who have not yet received the COVID-19 vaccine and would like to receive it can visit one of [facility] vaccine clinics. There are many vaccine clinic locations within the State. For locations and available times, please visit www.gettheshot.coronavirus.[place].gov/. It is important to note that some COVID mobile vaccine clinics are held outdoors and may be canceled in rainy or stormy conditions. To learn more about pediatric vaccinations (ages 5-11), we invite you to visit the [facility] webpage. https://www.[email or web address].org/pages/[email or web address]-Zdsyg-Bspfngeafua-Xmdjxenslp-Ymqqp-Otn stions.htmlTo learn more about the COVID-19 vaccine, we invite you to visit the CDC website for a list of frequently asked questions. https://www.cdc.gov/coronavirus/2019-ncov/vaccines/faq.html [facility] Patient Portal Access Instructions: Stay connected with your healthcare team and access your personal medical information anytime with the [facility] Patient Portal. If you would like a full copy of your medical records please contact the [facility] Medical Records Department Thursday through Thursday between 8a.m. and 4:30p.m. Please follow the directions below to access the portal: 1.Access the email account you provided upon registration to the hospital.2.Look for an invitation email from [facility].3.Open the email and access the invitation link: Accept Invitation to [facility]4.Fill in the required drake to create your account. Sign into [email or web address] with your username and password that you [...] you will allow to register on the [facility] Patient Portal for access to your information. You can also access the [facility] Patient Portal on the [employer] tex. Simply click on Health Records under [employer] and then click on the [place] logo. HOW TO SAFELY DISPOSE OF PRESCRIPTION [...] Call your local pharmacy or go to http://opinions.h.NeighborMD/0O4Gi5b to find one close to you.3.Make use of household items: Use cat litter or old coffee grounds to dispose medications if other options arenot available. Mix your drugs with these household products, seal them in an airtight container andthrow it into the garbage. Call [facility]: [phone] to be sure your drugs can be [...] aware that I should contact my doctor. Patient/Transportation Technician Signature: Date/Time: Relationship to Patient: Witness Name/Signature: Date/Time[id number] Note ORIGINAL EXAMINATION: ONE XRAY VIEW OF [...] Sign Date: 11/24/2023 7:08:29 PM Ordering Provider: [facility]02-27-2024 NoteSINUS OR ECTOPIC ATRIAL RHYTHM ANTEROSEPTAL INFARCT, OLD Electronic Signature: ELOISA LEVIN MD 11/25/2023 02:10:[address] [place] [address] 02-22-2024 Miscellaneous Notes* Telephone Encounter - Jacqueline Candelario APRN.CNP - 11/19/2023 11:29 AM EST We discussed lab results at appointment today. Thank you, Jacqueline Candelario APRN.CNP documented in this encounterUniversity Hospitals Parma Medical Center02-22-2024 History of Present illness Narrative* Jacqueline Candelario APRN.CNP - 11/19/2023 9:18 AM EST Chief Complaint Patient presents with: Hypertension HPI Deonte G Schmel is a 68 year old female who presents here today for Above Complaints. Deonte is an established patient of Dr. Farrar, [...] time a week. flash glucose scanning reader (MyCareSTYLE TARA 2 READER) 1 Device as directed. [...] agreeable to treatment plan. Jacqueline Corbin APRN.CNP [address] [place] [address] documented in this encounterUniversity Hospitals Parma Medical Center02-21-2024 Miscellaneous Notes* Telephone Encounter - Sofia Rodriguez [...] concerns at all. Thank you, Jacqueline Candelario APRN.DEREK documented in this encounterUniversity Hospitals Parma Medical Center02-16-2024 Miscellaneous Notes* Telephone Encounter - Jacqueline Candelario APRN.CNP - 11/13/2023 12:54 PM EST This was addressed during appointment today. Closing encounter. Thank you, Jacqueline Candelario APRN.DEREK * Telephone Encounter - Lisa Aparicio RN [...] pressure. Lisa Aparicio RN documented in this encounterUniversity Hospitals Parma Medical Center02-16-2024 History of Present illness Narrative* Jacqueline Candelario APRN.CNP - 11/13/2023 9:07 AM EST Deonte Farrar, Reason for blood pressure check: Last [...] day of the appointment., Patient provided with [employer] education al material., and Advise patient to continue to monitor BP at home and record readings. CORDUROY BRUSHER OPERATOR/MA/THUA: Written education material provided RN Only Education: Patient educated on the significance of having the BP under good control/diet/exercise. and Patientverbalized understanding of instruction Yes * Jacqueline Candelario APRN.CNP - 11/13/2023 8:53 AM EST Chief Complaint Patient presents with: Blood Pressure HPI Deonte Blanco is a 68 year old female who presents here today for Above Complaints. Deonte is an established patient of Dr. Farrar, [...] agreeable to treatment plan. Jacqueline Corbin APRN.DEREK [address] [place] [address] documented in this encounterUniversity Hospitals Parma Medical Center02-01-2024 History of Present illness Narrative* Jacqueline Candelario APRN.CNP - 10/29/2023 9:19 AM EST Chief Complaint Patient presents with: b/p running high last few days HPI Deonte Blanco is a 68 year old female who presents here today for Above Complaints. Deonte is an established patient of Dr. Charan DO and myself. Per TE from yesterday: Pt [...] Patient agreeable to treatment plan. Jacqueline Corbin APRN.BILLBOARD POSTER [address] [place] [address] documented in this encounterUniversity Hospitals Parma Medical Center11-13-2023 Miscellaneous Notes* Telephone Encounter - Gini Martinez [...] pt. Fernanda Ulloa LPN documented in this encounterUniversity Hospitals Parma Medical Center11-03-2023 Miscellaneous Notes* Telephone Encounter - Lisa Aparicio RN - 07/31/2023 12:09 PM EDT Patient notified of results. Patient verbalizes understanding. Lisa Aparicio RN * Telephone Encounter - Preet Farrar DO - 07/31/2023 7:49 AM EDT Please inform patient that her potassium is normal Preet Farrar DO documented in this encounterUniversity Hospitals Parma Medical Center11-01-2023 Miscellaneous Notes* Telephone Encounter - Donna Kimble Ma - 07/29/2023 1:02 PM EDT Spoke to erick and advised PA on file and approved till 02/2024 with medicaid. Pharmacy had to run drug and call tech team due to issue with kicking back to medicare. [facility] returned to line and got rx to [...] she needs prior authorization for brand name Kinney Thyroid. She says she cannot take generic form. PRIOR AUTHORIZATION Medication for Prior Authorization: Kinney Thyroid (Patient says she cannot use generic) Other formulary meds available : NO Insurance Company: [facility] Dual Complete Insurance Company phone number: Patient insurance ID number: [id number] Latosha Osei RN documented in this encounterUniversity Hospitals Parma Medical Center11-01-2023 History of Present illness Narrative* Funmi Roche - 07/29/2023 11:35 AM EDT POPULATION HEALTH NAVIGATION OUTREACH Action/FYI Patient stated she had mammo done outside [place]. Patient Identified by Name and : YES, via phone Outreach Outcome/Action Spoke to patient / parent / legal guardian: Patient declined Did you use a PCP flex slot to schedule this appointment? N/A Reason for Outreach Care Gap or Scheduling/Wellness visits Payer: Payor: [facility] MEDICARE / Plan: [facility] DUAL COMPLETE HMO POS SNP / Product Type: Medicare / Care Gap Reviewed:: Breast Cancer screening Reminder: Reminder note to check Health Maintenance for items below Health Maintenance items due: Mammogram Screening due on 11/16/2014 RSV Vaccine(1 - 1-dose 60+ series) Never done Colorectal Cancer Screening due on 09/09/2023 Navigation Signature: Funmi BASSETT July 29, 2023 11:35 AM documented in this encounterUniversity Hospitals Parma Medical Center10-31-2023 Miscellaneous Notes* Telephone Encounter - Sahara Mejia LPN - 07/28/2023 2:14 PM EDT Pt. informed. Sahara Mejia LPN * Telephone Encounter - Preet Farrar DO - 07/28/2023 1:47 PM EDT If she wants to try to replace the potassium with potassium rich foods, then needs lab redrawn by Thursday. Order placed Please inform Preet Farrar DO * Telephone Encounter - Chelo Prasad RN - 07/28/2023 1:[address] Stapleton from [facility] calling to give message to pt's [...] advise patient. Thank you. documented in this encounterUniversity Hospitals Parma Medical Center10-27-2023 Miscellaneous Notes* Telephone Encounter - Yesi Kitchen [...] in 3 months. Thank you, Jacqueline Candelario APRN.CNP The following approved medication requests have been transmitted electronically. Requested Prescriptions Signed Prescriptions Disp Refills semaglutide (OZEMPIC) 1 mg/dose (4 mg/3 mL) pen 9 mL 1 Sig: Inject 1 mg subcutaneously one time a week. Authorizing Provider: JACQUELINE CANDELARIO APRN.CNP * Telephone Encounter - Kerry Nevarez LPN - 07/22/2023 9:22 AM EDT Patient calling [facility] pharmacy told her the Ozempic 2 mg is on manufacture back order and not know when it will be available. Patient said they do have the 1 mg still available. Patient is asking if she should stay on the Ozempic 1 mg? And she would need new rx to be sent to [facility] pharmacy. Then when do you want her to do the HGBA1C lab work if she stays on the 1 mg? Pending rx if wanted needs completed. Please advise documented in this encounterUniversity Hospitals Parma Medical Center10-18-2023 History of Present illness Narrative* Kathryn Rivero APRN.CNP - 07/15/2023 10:34 AM EDT Chief Complaint Patient presents with: Hospital F/U: Virus, pt recently had a fall due to dizziness, reports in scanned docs. HPI Deonte Blanco is a 67 year old female who presents here today for Above Complaints. Today: 07/01 was seen at [facility], passed out-doesn't remember this happening [...] MG/3 ML) SUBCUTANEOUS PEN INJECTOR Kathryn Rivero APRN.BILLBOARD POSTER documented in this encounterUniversity Hospitals Parma Medical Center10-06-2023 Miscellaneous Notes* Telephone Encounter - Josie Starks RN - 07/03/2023 1:03 PM EDT Patient seen at [facility] ER on 07/01/2023 and is [...] Telephone Encounter - Jacqueline Candelario APRN.CNP - 07/01/2023 4:50 PM EDT Noted. Agree with below that she needs evaluated. Thank you, Jacqueline Candelario APRN.DEREK * Telephone Encounter - Kerry Nevarez LPN [...] then. Josie Starks RN documented in this encounterUniversity Hospitals Parma Medical Center09-29-2023 History of Present illness Narrative* Jacqueline Candelario APRN.DEREK - 06/26/2023 9:00 AM EDT Chief Complaint Patient presents with: b/s high yesterday and today: This morning b?s was 259, she states been nauseated and lft eye cloudy HPI Deonte Blanco is a 67 year old female who presents here today for Above Complaints. Deonte is an established patient of Dr. Farrar, [...] diarrhea yesterday. Recent travel last week to [place]. Reports no appetite and feels dehydrated. Concerns [...] today. Stay hydrated, encouraged body armor lite. Mystic diet. Discussed and educated patient on reason [...] agreeable to treatment plan. Jacqueline Corbin APRN.CNP [address] [place] [address] documented in this encounterUniversity Hospitals Parma Medical Center09-22-2023 Instructions* Patient Instructions* Kathryn Rivero APRN.CNP - 06/19/2023 11:13 AM EDT Cut back your Kinney Thyroid to 1 tablet daily. Recheck your thyroid levels again in 3 months. Check your A1C in 3 months. Continue with your same diabetic medications and diet, exercise. I'll get back with you pm the Vital Proteins powder. documented in this encounterUniversity Hospitals Parma Medical Center09-22-2023 History of Present illness Narrative* Kathryn Rivero APRN.CNP - 06/19/2023 10:46 AM EDT Chief Complaint Patient presents with: Follow Up: 3 months- DM HPI Deonte Blanco is a 67 year old female who presents here today for Above Complaints. Per visit with Jacqueline Candelario CNP on 04/30/2023: Chief Complaint Patient presents with: go over blood sugars and diet HPI Deonte Blanco is a 67 year old female who presents here today for Above Complaints. Deonte is an established patient of Dr. Charan DO and myself. Concerns today... DM-- Patient [...] Patient agreeable to treatment plan. Jacqueline Corbin APRN.BILLBOARD POSTER Today: A1C from has improved from 7.8 [...] ICD10: E53.8 - VITAMIN B12 BLOOD Kathryn Rivero APRN.DEREK documented in this encounterUniversity Hospitals Parma Medical Center08-21-2023 Miscellaneous Notes* Telephone Encounter - Annmarie Canada, OLVIN - 05/18/2023 9:27 AM EDT Pt called [...] 04-30-23 Next ov: 06-19-23 documented in this encounterUniversity Hospitals Parma Medical Center08-07-2023 Miscellaneous Notes* Telephone Encounter - Sahara Mejia LPN - 05/04/2023 5:11 PM EDT Pt. informed. * Telephone Encounter - Jacqueline Candelario APRN.DEREK - 05/04/2023 4:10 PM EDT Can we see if another pharmacy has ozempic in stock first or have pt call around to see. Thank you, Jacqueline Candelario APRN.DEREK * Telephone Encounter - Fernanda Ulloa LPN - 05/04/2023 9:11 AM EDT Pt called and she has 1 injection left for her Ozempic. Pharmacy instructed pt to call her pcp. Medication is now on back order. Please advise pt. Okay to leave a message. Fernanda Ulloa LPN documented in this encounterUniversity Hospitals Parma Medical Center08-03-2023 History of Present illness Narrative* Jacqueline Candelario APRN.CNP - 04/30/2023 8:40 AM EDT Chief Complaint Patient presents with: go over blood sugars and diet HPI Deonte Blanco is a 67 year old female who presents here today for Above Complaints. Deonte is an established patient of Dr. Farrar, [...] Patient agreeable to treatment plan. 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 PA to paul submitted through covermeds Shah: [id number] Donna Kimble Ma * Telephone Encounter - Donna Kimble Ma - 03/24/2023 1:22 PM EDT Electronic PA submitted Donna Kimble Ma * Telephone Encounter - Suzanna Coffey RN - 03/24/2023 12:03 PM EDT Prior Authorization Documentation Prior authorization requested for the following medication: Medication: Kinney thyroid Provider: Charan Insurance Company Name: [employer] Phone number: [phone] Patient ID number: [id number] [facility]: [facility] documented in this encounterUniversity Hospitals Parma Medical Center06-21-2023 History of Present illness Narrative* Preet Farrar, - 03/18/2023 11:00 AM EDT Patient presents with: F/U 3 Month HPI: Deonte Blanco is a 67 year old female [...] time. She does not check BP's generally. Deonte gets minimal exercise. PAST MEDICAL HISTORY Diagnosis [...] with the plan. Preet Farrar DO [address] [place] [address] documented in this encounterUniversity Hospitals Parma Medical Center06-06-2023 Miscellaneous Notes* Telephone Encounter - Kesha Looneyllow CORDUROY BRUSHER OPERATOR - 03/03/2023 2:20 PM EDT Last OV: [...] patient. Kesha Evans LPN documented in this encounterUniversity Hospitals Parma Medical Center05-08-2023 Miscellaneous Notes* Telephone Encounter - Latosha Osei [...] you. Latosha Osei RN documented in this encounterUniversity Hospitals Parma Medical Center03-29-2023 Miscellaneous Notes* Telephone Encounter - Annmarie Canada RN - 12/24/2022 3:08 PM EDT Pt called and is notified of providers message. Pt voices understanding. Annmarie Canada RN * Telephone Encounter - Kathryn Rivero APRN.DEREK - 12/24/2022 2:02 PM EDT The following approved medication requests have been transmitted electronically. Requested Prescriptions Signed Prescriptions Disp Refills glimepiride (AMARYL) 1 mg tablet 60 tablet 1 Sig: Take 1 tablet by mouth twice daily with meals. Authorizing Provider: PREET FARRAR Ordering User: KATHRYN RIVERO APRN.DEREK * Telephone Encounter - Annmarie Canada RN - 12/24/2022 8:36 AM EDT Pt called and is notified of providers message and instructions. Pt voices understanding. Pt statesshe would like to go on a lower dose of the Glimepiride and see if that would help. She would like it called in to [facility] in [place]. Please call and let Pt know when [...] reports this morning at 710 am it [id number] and at noon it was 225. Last [...] Please call and advise. documented in this encounterUniversity Hospitals Parma Medical Center03-20-2023 Miscellaneous Notes* Telephone Encounter - Annmarie Canada RN - 12/15/2022 11:23 AM EDT Pt called in and wanted to update provider that she will be starting Ozempic today. She states she will call back in 30 days to let you know how it is going and if she needs to have the medication increased. documented in this encounterUniversity Hospitals Parma Medical Center03-15-2023 History of Present illness Narrative* Preet Farrar, - 12/10/2022 9:19 AM EDT Patient presents with: F/U 3 Month HPI: Deonte Blanco is a 67 year old female [...] time. She does not check BP's generally. Deonte gets minimal exercise. PAST MEDICAL HISTORY Diagnosis [...] with the plan. Preet Farrar DO [address] [place] [address] documented in this encounterUniversity Hospitals Parma Medical Center02-23-2023 Discharge summary Author Douglas Abdul [facility] November 20, 2022 10:36am Note Date/Time November 20, 2022 10:36am [facility] Physical Therapy [facility] [address] [place] [address] / REHABILITATION SERVICES DISCHARGE SUMMARY MR#: [id number] Acct: [id number] Name: DEONTE BLANCO Rep #: [id number] : 1955 67 From: Douglas ellis Referring Dr.: Dr. Preet Farrar DO Status: REG RCR Insurance: [facility] MCRDUAL COMP O [facility] COMMUNITY PLAN It has been my pleasure to treat DEONTE BLANCO referred by Dr. Preet Farrar DO, [...] please feel free to call me at [phone]. Thank you for the referral of thispatient. Sincerely, Douglas Abdul Balance/Gait/Functional tests - Balance/Special Test Scores Lower Extremity Functional Score: 77 <Electronically signed by Douglas Abdul > 11/20/22 1036 CC: Dr. Preet Farrar DO; Dr. Carmen [place] MD ~ NRN Signed [facility] Work Phone: 1(436) 787-692002-08-2023 History of Present illness Narrative* Jacqueline Candelario, [place].BILLBOARD POSTER - 11/05/2022 11:00 AM EST Chief Complaint Patient presents with: hospital f/up HPI Deonte Blanco is a 67 year old female who presents here today for Above Complaints. Deonte is an established patient of Dr. Charan DO. Deonte is a new patient to me today. Concerns today... ER/hospital follow-up --- [facility] ER visit on 11/02/22 d/t [...] agreeable to treatment plan. Jacqueline Corbin APRN.DEREK [address] [place] [address] documented in this encounterUniversity Hospitals Parma Medical Center02-07-[address] [place] [facility] November 04, 2022 10:19am Note Date/Time November 04, 2022 1 0:19am [facility] Medical Records Department [address] [place] [address] Instructions for Home/Discharge Instructions 11/04/22 1018 MR#: [id number] Acct: [id number] Name: DEONTE BLANCO Rep #:[id number] : 1955 67 From: Carmen [place] MD [...] Hermes Block Instructions Patient Instructions: Booklet - [facility] Stroke ED - Living After [...] THEN AND EXTRA ONE ON THU AND SAT thyroid (pork) 120 MG tablet 240 mg [...] MD; Dr. Preet Farrar DO ~ Signed [facility] Work Phone: 1(934) 768-147702-06-[address] [place] [facility] November 03, 2022 3:50pm Note Date/Time November 03, 2022 3 :49pm [facility] Medical Records Department [address] [place] [address] Progress Note - Hospitalist 11/03/22 1540 MR#: [id number] Acct: [id number] Name: DEONTE BLANCO Rep #:[id number] : 1955 67 From: Carmen [place] MD PCP: Dr. Preet Farrar DO Status:AD M CM Location: [place] [address] Subjective Subjective Patient seen and examined. She [...] (Auto) 70.6 H, Lymph % (Auto) 20.1, Boyle % (Auto) 6.7, Eos % (Auto) 1.7, [...] lobe acute ischemic infarction. case discussed with NHectorB. : The above Results were Read Back [...] MD at 11:50 EST , ADDENDUM: 11/03/22 1214 IMPRESSION: 1. Complete occlusion of the left [...] prophylaxis: lovenox Charges/Coding Visit Charges Inpatient E&M: 30749 Subs Hosp L2 Reason for Visit Reason for Visit: Diagnoses Cerebral infarction, unspecified (11/02/22) 11/03/22 1550 <Electronically signed by Carmen Dallas MD> Cosigner Signature (if applicable): CC: ~ Signed [facility] Work Phone: 1(754) 573-779202-06-[address] [place] [facility] November 03, 2022 10:38am Note Date/Time November 03, 2022 1 0:39am [facility] Medical Records Department [address] [place] [address] Telemedicine Confirmation Receipt 11/03/22 MR#: [id number] Acct: [id number] Name: DEONTE BLANCO Rep #:[id number] : 1955 67 From: Carmen [place] MD PCP: Dr. Preet Farrar, DO Status:AD M CM [facility] Tele[facility] has confirmed receipt of a request for visit. This document confirms receipt of the order initiating the consult. To find the results of the consultation, please view the patient's reports for the scanned Telemed Consult. [facility] Work Phone: 1(216) 788-670102-06-[address] Chanel [facility] November 02, 2022 10:10pm Note Date/Time November 02, 2022 3 :18pm [facility] Medical Records Department [address] [place] [address] Emergency Department Summary 11/02/22 MR#: [id number] Acct: [id number] Name: DEONTE BLANCO Rep #:[id number] : 1955 67 From: Mick Chanel MD PCP: Dr. Preet Farrar DO Status:AD M CM Location: [place] [address] HPI History of Present Illness Chief Complaint: [...] was done by a back surgeon in [place]. [facility] Medical History Debility Diabetes mellitus [...] (Auto) 70.6 H Lymph % (Auto) 20.1 Boyle % (Auto) 6.7 Eos % (Auto) 1.7 [...] frontal lobe Disposition Disposition: Acute Care Hospital [facility] Discharge Date/Time: 11/02/22 17:12 What to do if you have Problems For any increased pain, shortness of breath, bleeding, nausea or vomiting, chestpain, or any unexpected problems, contact your Primary Care Provider. Call [facility] ([phone]) or report to the closest Emergency Room. Call 911 if necessary. 11/02/222209 <Electronically signed by Mick Chanel MD> Cosigner Signature (if applicable): CC: Dr. Preet Farrar, DO ~ Signed [facility] Work Phone: 1(567) 196-961802-05-2023 History and physical note Author Dr. Mirza [facility] November 02, 2022 5:39pm Note Date/Time November 02, 2022 5 :39pm [facility] Medical Records Department [address] [place] [address] H&P Exam - Hospitalist 11/02/22 1733 MR#: [id number] Acct: [id number] Name: DEONET BLANCO Rep #:[id number] : 1955 67 From: Hermes Mirza DO PCP: Dr. Preet Farrar, Status:CANDIDO PABON Location: [place] [id number] HPI - General General Date of Admission: 11/02/22 Date of Service: 11/02/22 Chief Complaint: Right leg weakness HPI Narrative DEONTE BLANCO, is a 67 F who presents [...] Patient has never had a stroke before [facility] Medical History Debility Diabetes mellitus Hypertension Hypothyroidism [...] in the right upper extremity. Finger-nose and uewp-pq-calf grossly intact. Sensation grossly intact. Psych/Mental Status: [...] (Auto) 70.6 H, Lymph % (Auto) 20.1, Boyle % (Auto) 6.7, Eos % (Auto) 1.7, [...] Signed: Neymar Jimenez MD at 16:29 EST Reading Location ID and State: [facility] / [place] , Service support , Assessment & Plan Assessment/Plan (1) Ischemic [...] observation status. Charges/Coding Visit Charges Inpatient E&M: 61362 Init Hosp L3 11/02/22 3978 <Electronically signed by Hermes Mirza DO> Cosigner Signature (if applicable): CC: Dr. Hermes Mirza DO; Dr. Aubrey Lundberg MD; Dr. Preet Farrar DO~ Signed [facility] Work Phone: 1(991) 535-226402-05-2023 Miscellaneous Notes* Telephone Encounter - Janis Subramanian RN - 11/02/2022 1:46 PM EST Reason for Call: Left foot drop, cool Outcome: Go to ED now. Patient acknowledged understanding and stated she would have daughter take her to ED. Reason for Disposition Diabetes mellitus Foot is cool or blue in comparison to other side Protocols used: Foot Droz-MCGSD-BW, Diabetes - Foot Problems and Gufttwghy-VMSSB-YR Patient states she is Type II diabetic and had back surgery in 2020. documented in this encounterUniversity Hospitals Parma Medical Center01-11-2023 Miscellaneous Notes* Telephone Encounter - Gini Martinez LPN - 10/08/2022 4:52 PM EST Keira--09/10/22 Nov--12/10/22 Last refill--b-12 05/07/22 90 with 3 refills Kinney thyroid 05/28/22 90 with 1 refills Last [...] advise. Susan Goddard Pss documented in this encounterUniversity Hospitals Parma Medical Center12-08-2022 Miscellaneous Notes* Telephone Encounter - Sofia Valente [...] advise and call patient. documented in this encounterUniversity Hospitals Parma Medical Center11-30-2022 Miscellaneous Notes* Telephone Encounter - Chelo Lakhani [...] and advise. Chelo Bassett documented in this encounterUniversity Hospitals Parma Medical Center08-31-2022 Miscellaneous Notes* Telephone Encounter - Fernanda Tash Ulloa LPN - 05/28/2022 2:11 PM EDT Pt calling [...] you. Fernanda Ulloa LPN documented in this encounterUniversity Hospitals Parma Medical Center08-09-2022 Miscellaneous Notes* Telephone Encounter - Donna Kimble Ma - 05/06/2022 11:59 AM EDT Patient last visit with PCP 02/19/22 Follow up appointment scheduled none Donna Kimble Ma documented in this encounterUniversity Hospitals Parma Medical Center07-11-2022 Miscellaneous Notes* Telephone Encounter - Annmarie Canada RN - 04/07/2022 3:13 PM EDT Zoey from [facility], and Pts POA called and asked to have lab results from 04/04/22 faced over. Faxed to # [phone]. documented in this encounterUniversity Hospitals Par[facility] Center07-06-2022 Miscellaneous Notes* Telephone Encounter - Sahara Bassett [...] patient. Sahara Thayer Pss documented in this encounterUniversity Hospitals Parma [facility] Center06-03-2022 History of Present illness Narrative* RT Whitley(R) - 02/28/2022 10:10 AM EDT Radiology Service Progress Note PATIENT NAME: Deonte Blanco DATE OF SERVICE: February 28, 2022 [...] 28, 2022 10:22 AM documented in this encounterUniversity Hospitals Parma [facility] Center06-02-2022 Miscellaneous Notes* Telephone Encounter - Funmi Burleson Pss - 02/27/2022 3:19 PM EDT This PSS spoke to US coco Jha [...] to test, and take hermeds afterwards. Asking Artist Consultant to please advise patient if this [...] office to answer her specific questions. PH: [phone]. Thank you. documented in this encounterUniversity Hospitals Parma [facility] Center05-27-2022 Miscellaneous Notes* Telephone Encounter - Gini Martinez [...] samples. Preet Farrar DO documented in this encounterUniversity Hospitals Par[facility] Center05-26-2022 Miscellaneous Notes* Telephone Encounter - Chelo Prasad [...] if agreeable. Thank you. documented in this encounterUniversity Hospitals Parma [facility] Center05-25-2022 History of Present illness Narrative* Preet Farrar, - 02/19/2022 12:11 PM EDT Patient presents with: Follow Up HPI: Deonte Blanco is a 66 year old female [...] the time. She does check BP's generally. Deonte gets sporadic irregular exercise. PAST MEDICAL HISTORY [...] agreed with the plan. 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 She wanted to update Dr. Farrar of her BP results now instead of waiting until 02/19 appt due to being concerned. She denies any chest pain, shortness of breath or other symptoms. Please advise. Thank you. documented in this encounterUniversity Hospitals Parma [facility] Center05-16-2022 History of Present illness Narrative* RT Maria Teresa(R) - 02/10/2022 10:00 AM EDT Radiology Service Progress Note PATIENT NAME: Deonte Blanco DATE OF SERVICE: February 10, 2022 [...] 10, 2022 10:01 AM documented in this encounterUniversity Hospitals Parma [facility] Center05-06-2022 Instructions* Patient Instructions* Kathryn Rivero APRN.BILLBOARD POSTER - 01/31/2022 11:45 AM EDT Record your BP and heart rate once daily until your appointment with Dr. Farrar. If your BP is consistently over 160/100, please let us know before then. You can discuss your thyroid medication with her at that time as well. documented in this encounterUniversity Hospitals Parma [facility] Center05-06-2022 History of Present illness Narrative* Kathryn Rivero APRN.CNP - 01/31/2022 11:22 AM EDT Chief Complaint Patient presents with: Blood Pressure HPI Deonte Blanco is a 66 year old female [...] E03.9 Insurance is no longer covering her Kinney Thyroid, as she is over 65 years old. They would like her to take TECHNICAL PROFESSIONAL Thyroid, but patient is unsure that she [...] in counseling and education. documented in this encounterUniversity Hospitals Parma Medical Center05-05-2022 Instructions* Patient Instructions* Steve Rodriguez - 01/30/2022 1:55 PM EDT Continue with boot. Repeat xrays in 2 weeks and then again in one month F/u in 1 month If you experience any issues, contact the office immediately documented in this encounterUniversity Hospitals Parma Medical Center05-05-2022 History of Present illness Narrative* Steve Michael - 01/30/2022 1:45 PM EDT Consultation requested [...] myself: Nondisplaced fracture of left fibula ASSESSMENT: (M67.393S) Closed fracture of distal end of left fibula, unspecified fracture morphology, initial encounter (primary encounter diagnosis) PLAN: 1. History and physical examination performed. 2. XR reviewed with patient and interpreted today 3. Discussed fracture of left fibula. This is nondisplaced. Continue with boot. 4. Will repeat xrays in 2 weeks and then again in 4 weeks Steve Rodriguez DPM Podiatry [address] [facility] [address] Dept: [phone] Dept * Melissa Valdivia RN - 01/30/2022 1:40 PM EDT AMB ROOMING INTAKE FLOWSHEET DATA Risk Screening Do you have concerns about personal safety or safety in the home?: No Patient presents with: Left Foot - New Patient, Fracture Patient is here for L foot fracture. Occurred a week ago. Has been NWB in boot. documented in this encounterUniversity Hospitals Parma [facility] Center04-28-2022 History of Present illness Narrative* Nataly Ryan APRN.BILLBOARD POSTER - 01/23/2022 4:59 PM EDT Images from the original note were not included. Subjective Patient came in with complaints of left ankle pain. Patient said she twisted her ankle in [place]. Said it does hurt to walk on it. Did notice some swelling. No loss of feeling or sensation. The history is provided by the patient. No foreign language instructor was used. Review of Systems Constitutional: Negative. [...] aspect of the lateral malleolus. Calcaneal spurring. Artist Consultant: AUGUSTIN Transcribe Date/Time: Jan 23 2022 5:55P Dictated by : RODRIGO GONSALVES MD Patient placed in a walking boot and crutches were given. Try not to put weight on ankle as much aspossible. Orthopedic appointment patient instructed to take tylenol and ice and elevate until follow up with orthopedic. Nataly Ryan APRN.DEREK documented in this encounterUniversity Hospitals Parma Medical Center04-20-2022 Miscellaneous Notes* Telephone Encounter - Jacqueline Corbin [...] may contact her insurance company or the community development director of [employer] to see if they have anyother option. Nothing else is needed from the provider. fyi to provider. * Telephone Encounter - Jacqueline Corbin APRN.CNP - 01/15/2022 12:19 PM EDT Patient has been taking this medication for years. Please clarify what alternatives are covered by her insurance and/or re-submit new PA. Jacqueline Corbin APRN.DEREK * Telephone Encounter - Liz Richards LPN - 01/14/2022 2:07 PM EDT PA completed and this is excluded per response. To: Jacqueline Corbin From: [employer] Phone: Fax: [phone] Reference #: [id number] RE: Prior Authorization Request Patient Name: Deonte Blanco Patient : 1955 Status of Request: Deny Medication Name: Kinney Thyro Tab 120mg GPI/NDC: [id number] Decision Notes: This medication is a plan exclusion and is not a covered benefit on this patient's plan. * Telephone Encounter - iLz Richards LPN - 01/14/2022 12:01 PM EDT Electronic PA requested. * Telephone Encounter - Annmarie Canada RN - 01/14/2022 11:41 AM EDT Prior Authorization Documentation Prior authorization requested for the following medication: Medication: Kinney Thyroid Provider: Dr Preet Farrar Insurance Company Name: [facility] [employer] Insurance Company Phone number: Patient ID number: [id number] Pharmacy Name: [facility] Telephone number: [phone] documented in this encounterUniversity Hospitals Parma Medical Center04-02-2021 NoteHospital Medicine Discharge Summary Deonte Blanco : 1955 Admit date: 12/21/2020 Discharge [...] Finally were able to transition her to halfway facility on 12/28/2020. Exam on discharge: BP [...] by the following consultants while admitted to [facility]: Consults: IP CONSULT TO ORTHOPEDIC SURGERY IP CONSULT TO GRAB HOOKER IP CONSULT TO GRAB HOOKER Significant Diagnostic Studies: Refer to chart Please refer to chart if no studies are shown here Xr Lumbar Spine (2-3 Views) Result Date: 12/21/2020 Patient Name: DEONTE BLANCO Diagnostic Radiology ACCESSION EXAM DATE/TIME PROCEDURE ORDERING PROVIDER [id number] 12/21/2020 06:06 EDT CR Spine Lumbosacral 2 MD ROCK ZACHARY or 3 Views CPT code 31577 Reason For Exam (CR Spine Lumbosacral 2 or 3 Views) pre-surgery films Report Examination: Lumbar spine 3 views Indication: pre-surgery films Findings: The vertebral bodies are in gross anatomic alignment. No acute fracture is demonstrated. [id number] levocurvature is noted. There are at least moderate degenerative facet changes of the lower lumbar spine. There is at least moderate degenerative disc disease at T12/L1 and L1/L2. Hdhv-is-ceinqwau calcification of the abdominal aorta is noted. [...] 1 Vw Result Date: 12/21/2020 Patient Name: DEONTE BLANCO Diagnostic Radiology ACCESSION EXAM DATE/TIME PROCEDURE ORDERING PROVIDER [id number] 12/21/2020 06:06 EDT CR Chest 1 View Frontal MD ROCK ZACHARY CPT code 86764 Reason For Exam (CR Chest 1 View [...] Date and Time: 12/21/2020 8:00 Discharge Medications: Deonte Blanco Home Medication Instructions [place]:[id number] Printed on:12/28/20 1201 Medication Information Cholecalciferol (VITAMIN D3) 1.25 MG (09047 UT) CAPS Take 50,000 capsules by mouth Twice a Week Thursday and Thursday cyclobenzaprine (FLEXERIL) 10 MG tablet Take 1 tablet by mouth 3 times daily as needed for Muscle spasms gabapentin (NEURONTIN) 300 MG capsule Take 1 capsule by mouth 3 times da (more content not included)...[facility]03-27-[facility]21 NoteProcedure Note Name: Deonte Blanco Date of : 1955 Age: 65 y.o. Primary Care Physician: No primary care provider on file. Admission Date/Time: 12/21/2020 2:28 AM Date of Procedure: 12/21/2020 Attending Surgeon: Steve Martinez M.D. Diversified Crops Supervisor: Abisai Wolff PA-C, Treva Henderson MD PGY-2 The first-commercial assistant was critical to all steps of [...] F who presented as a transfer from [facility] with low back pain and bilateral [...] was obtained. Consent: I have discussed with Deonte Blanco the benefits, risks, and alternatives of [...] was prepped and drape (more content not included)...[facility]01[facility] History of Past illness Narrative* Problem Noted Date Resolved Date Controlled type 2 diabetes m issacitus without complication, without long-term current use of insulin 10/12/2018 12/08/2022 Abdominal pain, right upper quadrant 02/16/2007 12/08/2022 Diabetes mellitus type 2, controlled, without co mplications 07/13/2006 12/08/2022 Overview: 2005 documented as of this encounter (statuses as of 12/10/2022) [facility] History of Past illness Narrative* Problem Noted Date Resolved Date Controlled type 2 diabetes m issacitus without complication, without long-term current use of insulin 10/12/2018 12/08/2022 Abdominal pain, right upper quadrant 02/16/2007 12/08/2022 Diabetes mellitus type 2, controlled, without co mplications 07/13/2006 12/08/2022 Overview: 2005 documented as of this encounter (statuses as of 12/15/2022) [facility] History of Past illness Narrative* Problem Noted Date Resolved Date Controlled type 2 diabetes m ellitus without complication, without long-term current use of insulin 10/12/2018 12/08/2022 Abdominal pain, right upper quadrant 02/16/2007 12/08/2022 Diabetes mellitus type 2, controlled, without co mplications 07/13/2006 12/08/2022 Overview: 2005 documented as of this encounter (statuses as of 12/24/2022) [facility] History of Past illness Narrative* Problem Noted Date Resolved Date Controlled type 2 diabetes m ellitus without complication, without long-term current use of insulin 10/12/2018 12/08/2022 Abdominal pain, right upper quadrant 02/16/2007 12/08/2022 Diabetes mellitus type 2, controlled, without co mplications 07/13/2006 12/08/2022 Overview: 2005 documented as of this encounter (statuses as of 02/03/2023) [facility] of Past illness Narrative* Problem Noted Date Resolved Date Controlled type 2 diabetes m ellitus without complication, without long-term current use of insulin 10/12/2018 12/08/2022 Abdominal pain, right upper quadrant 02/16/2007 12/08/2022 Diabetes mellitus type 2, controlled, without co mplications 07/13/2006 12/08/2022 Overview: 2005 documented as of this encounter (statuses as of 03/04/2023) [facility] of Past illness Narrative* Problem Noted Date Resolved Date Controlled type 2 diabetes m ellitus without complication, without long-term current use of insulin 10/12/2018 12/08/2022 Abdominal pain, right upper quadrant 02/16/2007 12/08/2022 Diabetes mellitus type 2, controlled, without co mplications 07/13/2006 12/08/2022 Overview: 2005 documented as of this encounter (statuses as of 03/18/2023) [facility] of [facility] illness Narrative* Problem Noted Date Resolved Date Controlled type 2 diabetes m ellitus without complication, without long-term current use of insulin 10/12/2018 12/08/2022 Abdominal pain, right upper quadrant 02/16/2007 12/08/2022 Diabetes mellitus type 2, controlled, without co mplications 07/13/2006 12/08/2022 Overview: 2005 documented as of this encounter (statuses as of 03/25/2023) [facility] of [facility] illness Narrative* Problem Noted Date Diagnosed Date Resolved Date Controlled type 2 diabetes m ellitus without complication, without long-term current use of insulin 10/12/2018 12/08/2022 Abdominal pain, right upper quadrant 02/16/2007 12/08/2022 Diabetes mellitus type 2, co ntrolled, without complications 07/13/2006 12/08/2022 Overview: 2005 documented as of this encounter (statuses as of 04/30/2023) [facility] of [facility] illness Narrative* Problem Noted Date Diagnosed Date Resolved Date Controlled type 2 diabetes m ellitus without complication, without long-term current use of insulin 10/12/2018 12/08/2022 Abdominal pain, right upper quadrant 02/16/2007 12/08/2022 Diabetes mellitus type 2, co ntrolled, without complications 07/13/2006 12/08/2022 Overview: 2005 documented as of this encounter (statuses as of 05/05/2023) [facility] of [facility] illness Narrative* Problem Noted Date Diagnosed Date Resolved Date Controlled type 2 diabetes m ellitus without complication, without long-term current use of insulin 10/12/2018 12/08/2022 Abdominal pain, right upper quadrant 02/16/2007 12/08/2022 Diabetes mellitus type 2, co ntrolled, without complications 07/13/2006 12/08/2022 Overview: 2005 documented as of this encounter (statuses as of 05/18/2023) [facility] of [facility] illness Narrative* Problem Noted Date Diagnosed Date Resolved Date Controlled type 2 diabetes m ellitus without complication, without long-term current use of insulin 10/12/2018 12/08/2022 Abdominal pain, right upper quadrant 02/16/2007 12/08/2022 Diabetes mellitus type 2, co ntrolled, without complications 07/13/2006 12/08/2022 Overview: 2005 documented as of this encounter (statuses as of 06/20/2023) [facility] of [facility] illness Narrative* Problem Noted Date Diagnosed Date Resolved Date Controlled type 2 diabetes m ellitus without complication, without long-term current use of insulin 10/12/2018 12/08/2022 Abdominal pain, right upper quadrant 02/16/2007 12/08/2022 Diabetes mellitus type 2, co ntrolled, without complications 07/13/2006 12/08/2022 Overview: 2005 documented as of this encounter (statuses as of 06/26/2023) [facility] of [facility] Narrative* Problem Noted Date Diagnosed Date Resolved Date Controlled type 2 diabetes m ellitus without complication, without long-term current use of insulin 10/12/2018 12/08/2022 Abdominal pain, right upper quadrant 02/16/2007 12/08/2022 Diabetes mellitus type 2, co ntrolled, without complications 07/13/2006 12/08/2022 Overview: 2005 documented as of this encounter (statuses as of 07/04/2023) [facility] Narrative* Problem Noted Date Diagnosed Date Resolved Date Controlled type 2 diabetes m ellitus without complication, without long-term current use of insulin 10/12/2018 12/08/2022 Abdominal pain, right upper quadrant 02/16/2007 12/08/2022 Diabetes mellitus type 2, co ntrolled, without complications 07/13/2006 12/08/2022 Overview: 2005 documented as of this encounter (statuses as of 07/21/2023) [facility] Narrative* Problem Noted Date Diagnosed Date Resolved Date Controlled type 2 diabetes m ellitus without complication, without long-term current use of insulin 10/12/2018 12/08/2022 Abdominal pain, right upper quadrant 02/16/2007 12/08/2022 Diabetes mellitus type 2, co ntrolled, without complications 07/13/2006 12/08/2022 Overview: 2005 documented as of this encounter (statuses as of 07/24/2023) [facility] of [facility] Narrative* Problem Noted Date Diagnosed Date Resolved Date Controlled type 2 diabetes m ellitus without complication, without long-term current use of insulin 10/12/2018 12/08/2022 Abdominal pain, right upper quadrant 02/16/2007 12/08/2022 Diabetes mellitus type 2, co ntrolled, without complications 07/13/2006 12/08/2022 Overview: 2005 documented as of this encounter (statuses as of 07/28/2023) [facility] Narrative* Problem Noted Date Diagnosed Date Resolved Date Controlled type 2 diabetes m ellitus without complication, without long-term current use of insulin 10/12/2018 12/08/2022 Abdominal pain, right upper quadrant 02/16/2007 12/08/2022 Diabetes mellitus type 2, co ntrolled, without complications 07/13/2006 12/08/2022 Overview: 2005 documented as of this encounter (statuses as of 07/29/2023) [facility] Narrative* Problem Noted Date Diagnosed Date Resolved Date Controlled type 2 diabetes m ellitus without complication, without long-term current use of insulin 10/12/2018 12/08/2022 Abdominal pain, right upper quadrant 02/16/2007 12/08/2022 Diabetes mellitus type 2, co ntrolled, without complications 07/13/2006 12/08/2022 Overview: 2005 documented as of this encounter (statuses as of 08/01/2023) [facility] Narrative* Problem Noted Date Diagnosed Date Resolved Date Controlled type 2 diabetes m ellitus without complication, without long-term current use of insulin 10/12/2018 12/08/2022 Abdominal pain, right upper quadrant 02/16/2007 12/08/2022 Diabetes mellitus type 2, co ntrolled, without complications 07/13/2006 12/08/2022 Overview: 2005 documented as of this encounter (statuses as of 08/10/2023) [facility] Narrative* Problem Noted Date Diagnosed Date Resolved Date Controlled type 2 diabetes m ellitus without complication, without long-term current use of insulin 10/12/2018 12/08/2022 Abdominal pain, right upper quadrant 02/16/2007 12/08/2022 Diabetes mellitus type 2, co ntrolled, without complications 07/13/2006 12/08/2022 Overview: 2005 documented as of this encounter (statuses as of 10/29/2023) [facility] Narrative* Problem Noted Date Diagnosed Date Resolved Date Controlled type 2 diabetes m ellitus without complication, without long-term current use of insulin 10/12/2018 12/08/2022 Abdominal pain, right upper quadrant 02/16/2007 12/08/2022 Diabetes mellitus type 2, co ntrolled, without complications 07/13/2006 12/08/2022 Overview: 2005 documented as of this encounter (statuses as of 11/13/2023) [facility] Narrative* Problem Noted Date Diagnosed Date Resolved Date Controlled type 2 diabetes m ellitus without complication, without long-term current use of insulin 10/12/2018 12/08/2022 Abdominal pain, right upper quadrant 02/16/2007 12/08/2022 Diabetes mellitus type 2, co ntrolled, without complications 07/13/2006 12/08/2022 Overview: 2005 documented as of this encounter (statuses as of 11/13/2023) [facility] Narrative* Problem Noted Date Diagnosed Date Resolved Date Controlled type 2 diabetes m ellitus without complication, without long-term current use of insulin 10/12/2018 12/08/2022 Abdominal pain, right upper quadrant 02/16/2007 12/08/2022 Diabetes mellitus type 2, co ntrolled, without complications 07/13/2006 12/08/2022 Overview: 2005 documented as of this encounter (statuses as of 11/18/2023) [facility] Narrative* Problem Noted Date Diagnosed Date Resolved Date Controlled type 2 diabetes m ellitus without complication, without long-term current use of insulin 10/12/2018 12/08/2022 Abdominal pain, right upper quadrant 02/16/2007 12/08/2022 Diabetes mellitus type 2, co ntrolled, without complications 07/13/2006 12/08/2022 Overview: 2005 documented as of this encounter (statuses as of 11/19/2023) [facility] Narrative* Problem Noted Date Diagnosed Date Resolved Date Controlled type 2 diabetes m ellitus without complication, without long-term current use of insulin 10/12/2018 12/08/2022 Abdominal pain, right upper quadrant 02/16/2007 12/08/2022 Diabetes mellitus type 2, co ntrolled, without complications 07/13/2006 12/08/2022 Overview: 2005 documented as of this encounter (statuses as of 11/19/2023) [facility] Narrative* Problem Noted Date Diagnosed Date Resolved Date Controlled type 2 diabetes m ellitus without complication, without long-term current use of insulin 10/12/2018 12/08/2022 Abdominal pain, right upper quadrant 02/16/2007 12/08/2022 Diabetes mellitus type 2, co ntrolled, without complications 07/13/2006 12/08/2022 Overview: 2005 documented as of this encounter (statuses as of 11/25/2023) [facility] Narrative* Problem Noted Date Diagnosed Date Resolved Date Controlled type 2 diabetes m ellitus without complication, without long-term current use of insulin 10/12/2018 12/08/2022 Abdominal pain, right upper quadrant 02/16/2007 12/08/2022 Diabetes mellitus type 2, co ntrolled, without complications 07/13/2006 12/08/2022 Overview: 2005 documented as of this encounter (statuses as of 12/09/2023) [facility] Narrative* Problem Noted Date Diagnosed Date Resolved Date Controlled type 2 diabetes m ellitus without complication, without long-term current use of insulin 10/12/2018 12/08/2022 Abdominal pain, right upper quadrant 02/16/2007 12/08/2022 Diabetes mellitus type 2, co ntrolled, without complications 07/13/2006 12/08/2022 Overview: 2005 documented as of this encounter (statuses as of 12/10/2023) [facility] Narrative* Problem Noted Date Diagnosed Date Resolved Date Controlled type 2 diabetes m ellitus without complication, without long-term current use of insulin 10/12/2018 12/08/2022 Abdominal pain, right upper quadrant 02/16/2007 12/08/2022 Diabetes mellitus type 2, co ntrolled, without complications 07/13/2006 12/08/2022 Overview: 2005 documented as of this encounter (statuses as of 01/02/2024) [facility] Narrative* Problem Noted Date Diagnosed Date Resolved Date Controlled type 2 diabetes m ellitus without complication, without long-term current use of insulin 10/12/2018 12/08/2022 Abdominal pain, right upper quadrant 02/16/2007 12/08/2022 Diabetes mellitus type 2, co ntrolled, without complications 07/13/2006 12/08/2022 Overview: 2005 documented as of this encounter (statuses as of 01/02/2024) [facility]01[facility]15[facility]2019 History of Past illness Narrative* Problem Noted Date Diagnosed Date Resolved Date Controlled type 2 diabetes m ellitus without complication, without long-term current use of insulin 10/12/2018 12/08/2022 Abdominal pain, right upper quadrant 02/16/2007 12/08/2022 Diabetes mellitus type 2, co ntrolled, without complications 07/13/2006 12/08/2022 Overview: 2005 documented as of this encounter (statuses as of 01/03/2024) [facility]01-[facility]2019 History of Past illness Narrative* Problem Noted Date Diagnosed Date Resolved Date Controlled type 2 diabetes m ellitus without complication, without long-term current use of insulin 10/12/2018 12/08/2022 Abdominal pain, right upper quadrant 02/16/2007 12/08/2022 Diabetes mellitus type 2, co ntrolled, without complications 07/13/2006 12/08/2022 Overview: 2005 documented as of this encounter (statuses as of 01/06/2024) [facility]01[facility]2019 History of Past illness Narrative* Problem Noted Date Diagnosed Date Resolved Date Controlled type 2 diabetes m ellitus without complication, without long-term current use of insulin 10/12/2018 12/08/2022 Abdominal pain, right upper quadrant 02/16/2007 12/08/2022 Diabetes mellitus type 2, co ntrolled, without complications 07/13/2006 12/08/2022 Overview: 2005 documented as of this encounter (statuses as of 01/06/2024) [facility]01[facility]2019 History of Past illness Narrative* Problem Noted Date Diagnosed Date Resolved Date Controlled type 2 diabetes m ellitus without complication, without long-term current use of insulin 10/12/2018 12/08/2022 Abdominal pain, right upper quadrant 02/16/2007 12/08/2022 Diabetes mellitus type 2, co ntrolled, without complications 07/13/2006 12/08/2022 Overview: 2005 documented as of this encounter (statuses as of 01/07/2024) [facility] History of Past illness Narrative* Problem Noted Date Diagnosed Date Resolved Date Controlled type 2 diabetes m ellitus without complication, without long-term current use of insulin 10/12/2018 12/08/2022 Abdominal pain, right upper quadrant 02/16/2007 12/08/2022 Diabetes mellitus type 2, co ntrolled, without complications 07/13/2006 12/08/2022 Overview: 2005 documented as of this encounter (statuses as of 01/14/2024) [facility] + Plan note No data available for this section [facility] Evaluation note* Diagnosis Acute left ankle pain- Primary documented in this encounter [facility] note* Diagnosis Closed fracture of distal end of left fibula, unspecified fracture morphology, initial encounter- Primary documented in this encounter [facility] note* Diagnosis Essential hypertension, benign- Primary Acquired hypothyroidism Unspecified hypothyroidism Controlled type 2 diabetes mellitus without complication, without long-term current use of insulin (HCC) [facility] Diagnosis Closed fracture of distal end of left fibula, unspecified fracture morphology, initial encounter [facility] Diagnosis Uncontrolled hypertension- Primary Unspecified essential hypertension Palpitations Uncontrolled type 2 diabetes mellitus with hyperglycemia (HCC) Essential hypertension, benign Acquired hypothyroidism Unspecified hypothyroidism documented in this encounter [facility] note* Diagnosis Uncontrolled hypertension- Primary Unspecified essential hypertension [facility] Diagnosis Closed fracture of distal end of left fibula, unspecified fracture morphology, initial encounter [facility]* Diagnosis Encounter for screening mammogram for breast cancer documented in this encounter [facility] note* Diagnosis Vitamin D deficiency Unspecified vitamin D deficiency documented in this encounter [facility] noteNo assessment information availableWMercy [facility] Work Phone: Evaluation note* Diagnosis Vitamin B12 deficiency Other B-complex deficiencies [facility]* Diagnosis Acquired hypothyroidism Unspecified hypothyroidism [facility]* Diagnosis Essential hypertension, benign [facility] Diagnosis Acquired hypothyroidism- Primary Unspecified hypothyroidism Vitamin D deficiency Unspecified vitamin D deficiency Uncontrolled type 2 diabetes mellitus with hyperglycemia (HCC) Dyslipidemia Other and unspecified hyperlipidemia Iron deficiency anemia, unspecified iron deficiency anemia type documented in this encounter [facility] note* Diagnosis Acquired hypothyroidism Unspecified hypothyroidism Vitamin B12 deficiency Other B-complex deficiencies documented in this encounter [facility] note* Diagnosis Onset Date Resolution Status Ischemic cerebrovascular accident (CVA) of frontal lob e [facility] Work Phone: Evaluation note* Diagnosis Ischemic stroke without residual deficits (HCC)- Primary Essential hypertension, benign Uncontrolled type 2 diabetes mellitus with hyperglycemia (HCC) Dyslipidemia Other and unspecified hyperlipidemia Encounter for smoking cessation counseling Counseling on substance use and abuse Controlled type 2 diabetes mellitus without complication, without long-term current use of insulin (HCC) [facility]* Diagnosis Uncontrolled type 2 diabetes mellitus with hyperglycemia (HCC)- Primary Ischemic stroke without residual deficits (HCC) Dyslipidemia Other and unspecified hyperlipidemia Acquired hypothyroidism Unspecified hypothyroidism Vitamin D deficiency Unspecified vitamin D deficiency Vitamin B12 deficiency Other B-complex deficiencies History of tobacco abuse Personal history of tobacco use, presenting hazards to health [facility] Diagnosis Vitamin B12 deficiency Other B-complex deficiencies [facility] Diagnosis Acquired hypothyroidism Unspecified hypothyroidism Vitamin D deficiency Unspecified vitamin D deficiency [facility]* Diagnosis Uncontrolled type 2 diabetes mellitus with hyperglycemia (HCC)- Primary Acquired hypothyroidism Unspecified hypothyroidism Dyslipidemia Other and unspecified hyperlipidemia History of tobacco abuse Personal history of tobacco use, presenting hazards to health Essential hypertension, benign [facility]* Diagnosis Onset Date Resolution Status Polyneuropathy acute 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 Ischemic stroke resolved [facility] Work Phone: evaluation note* Diagnosis Uncontrolled type 2 diabetes mellitus with hyperglycemia (HCC) [facility]* Diagnosis Uncontrolled type 2 diabetes mellitus with hyperglycemia (HCC) [facility]* Diagnosis Uncontrolled type 2 diabetes mellitus with hyperglycemia (HCC)- Primary Acquired hypothyroidism Unspecified hypothyroidism Vitamin B12 deficiency Other B-complex deficiencies [facility]* Diagnosis Nausea and vomiting, unspecified vomiting type- Primary Hyperglycemia Other abnormal glucose Controlled type 2 diabetes mellitus without complication, without long-term current use of insulin (HCC) [facility]* Diagnosis Uncontrolled type 2 diabetes mellitus with hyperglycemia (HCC)- Primary Acquired hypothyroidism Unspecified hypothyroidism Essential hypertension, benign Renal artery stenosis (HCC) Atherosclerosis of renal artery [facility]* Diagnosis Uncontrolled type 2 diabetes mellitus with hyperglycemia (HCC) [facility]* Diagnosis Hypokalemia- Primary Hypopotassemia [facility]* Diagnosis Onset Date Resolution Status Hypokalemia acute Hypokalemia acute Polyneuropathy acute 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 Ischemic stroke resolved [facility] Work Phone: evaluation note* Diagnosis Essential hypertension, benign- Primary [facility]* Diagnosis Essential hypertension, benign- Primary Acquired hypothyroidism Unspecified hypothyroidism Controlled type 2 diabetes mellitus without complication, with long-term current use of insulin (HCC) Uncontrolled type 2 diabetes mellitus with hyperglycemia (HCC) [facility]* Diagnosis Essential hypertension, benign- Primary Situational anxiety Other anxiety states [facility] Ischemic stroke without residual deficits (HCC) [facility] Diagnosis Uncontrolled type 2 diabetes mellitus [...] Other anxiety states [facility] Diagnosis Vaginal itching- Primary Pruritus of genital organs Dysuria Glucosuria Glycosuria [facility] Diagnosis BV (bacterial vaginosis)- Primary Vaginitis and vulvovaginitis, unspecified [facility] Diagnosis Acquired hypothyroidism Unspecified hypothyroidism Uncontrolled type 2 diabetes mellitus with hyperglycemia (HCC) [facility] Diagnosis Uncontrolled type 2 diabetes mellitus with hyperglycemia (HCC)- Primary Situational anxiety Other anxiety states [facility] Diagnosis Uncontrolled type 2 diabetes mellitus with hyperglycemia (HCC)- Primary Vaginal yeast infection Candidiasis of vulva and vagina Poor sleep [facility] Diagnosis Vitamin D deficiency Unspecified vitamin D deficiency [facility] Diagnosis Encounter for screening mammogram for breast cancer [facility] Diagnosis Gastroenteritis- Primary Other and unspecified noninfectious gastroenteritis and colitis Uncontrolled type 2 diabetes mellitus with hyperglycemia (HCC) Acquired hypothyroidism Unspecified hypothyroidism Obesity, Class I, BMI 30-34.9 Obesity, unspecified Acute dehydration Situational anxiety Other anxiety states [facility] Diagnosis Type 2 diabetes mellitus with other circulatory complication, with long-term current use of insulin (HCC)- Primary [facility]* Diagnosis Ischemic stroke without residual deficits (HCC) [facility]* Diagnosis Thickened endometrium- Primary Nonspecific (abnormal) findings on radiological and other examination of genitourinary organs LLQ pain Abdominal pain, left lower quadrant [facility]* Diagnosis Uncontrolled type 2 diabetes mellitus with hyperglycemia (HCC)- Primary Acquired hypothyroidism Unspecified hypothyroidism Essential hypertension, benign Vitamin B12 deficiency Other B-complex deficiencies Hyperlipidemia, mixed Mixed hyperlipidemia Tobacco use disorder Vitamin D deficiency Unspecified vitamin D deficiency [facility]* Diagnosis Acute left ankle pain [facility]* Diagnosis Type 2 diabetes mellitus with other circulatory complication, with long-term current use of insulin (HCC)- Primary [facility]* Diagnosis Acquired hypothyroidism Unspecified hypothyroidism Uncontrolled type 2 diabetes mellitus with hyperglycemia (HCC) [facility]* Diagnosis Uncontrolled type 2 diabetes mellitus with hyperglycemia (HCC) [facility]* Diagnosis Hyperlipidemia, mixed- Primary Mixed hyperlipidemia Hypothyroidism, unspecified type 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, without long-term current use of insulin (HCC) documented in this encounter [facility] note* Diagnosis Medicare annual wellness visit, subsequent- [...] vitamin D deficiency documented in this encounter [facility] note* Diagnosis Acquired hypothyroidism Unspecified hypothyroidism [facility]* Diagnosis Abnormal results of thyroid function studies- Primary Nonspecific abnormal results of thyroid function study [facility]* Diagnosis Ischemic stroke without residual deficits (HCC) [facility]* Diagnosis Uncontrolled type 2 diabetes mellitus with hyperglycemia (HCC)- Primary Hyperlipidemia, mixed Mixed hyperlipidemia Vitamin B12 deficiency Other B-complex deficiencies Vitamin D deficiency Unspecified vitamin D deficiency Essential hypertension, benign Acquired hypothyroidism Unspecified hypothyroidism Pre-op examination Preoperative examination, unspecified [facility]* Diagnosis Uncontrolled type 2 diabetes mellitus with hyperglycemia (HCC)- Primary documented in this encounter [facility] note* Diagnosis Encounter for screening mammogram for breast cancer [facility]* Diagnosis Type 2 diabetes mellitus with other circulatory complication, with long-term current use of insulin (HCC)- Primary Abnormal weight gain documented in this encounter [facility] note* Diagnosis Uncontrolled type 2 diabetes mellitus with hyperglycemia (HCC) Screening for depression documented in this encounter [facility] note* Diagnosis Uncontrolled type 2 diabetes mellitus with hyperglycemia (HCC) documented in this encounter [facility] note* Diagnosis Type 2 diabetes mellitus with hyperosmolarity without coma, with long-term current use of insulin (HCC)- Primary Uncontrolled type 2 diabetes mellitus with hyperglycemia (HCC) Encounter for diabetes education Type II or unspecified type diabetes mellitus without mention of complication, not stated as uncontrolled Situational anxiety Other anxiety states Obesity, Class II, BMI 35-39.9 Obesity, unspecified Essential hypertension, benign documented in this encounter [facility] note* Diagnosis Acquired hypothyroidism Unspecified hypothyroidism documented in this encounter [facility] note* Diagnosis Other elevated white blood cell (WBC) count- Primary documented in this encounter [facility] note* Diagnosis Acquired hypothyroidism- Primary Unspecified hypothyroidism Ischemic stroke without residual deficits (HCC) Uncontrolled type 2 diabetes mellitus with hyperglycemia (HCC) Hyperlipidemia, mixed Mixed hyperlipidemia [facility] Diagnostic Procedure Only (Urgent) - Closed Specialty Diagnoses / Procedures Referred By Contac t Referred To Contact XR IMAGING Diagnoses Acute left ankle pain Procedures XR ANKLE GENERAL 3V AP/LAT/OBL LEFT RADEX ANKLE COMPLETE MINIMUM 3 VIEWS Nataly Ryan APRN.CNP [address] [place] [address] Xr Imaging Referral ID Status Reason Start Date Expiration Date V isits Requested Visits Authorized [id number] Closed Auto-Generate d Referral 01/23/2022 09/27/2022 1 1 [facility] for referral (narrative)* Diagnostic Procedure Only (Routine) - Authorized Specialty Diagnoses / Procedures Referred By Contac t Referred To Contact XR IMAGING Diagnoses Closed fracture of distal end of left fibula, unspecified fracture morphology, initial encounter Procedures XR ANKLE GENERAL 3V AP/LAT/OBL LEFT RADEX ANKLE COMPLETE MINIMUM 3 VIEWS Steve Rodriguez [address] [place] [address] Xr Imaging Referral ID Status Reason Start Date Expiration Date Visits Requested Visits Authorized [id number] Authorized Auto-Generat ed Referral 02/10/2022 09/27/2022 1 1 [facility] for referral (narrative)* Diagnostic Procedure Only (Routine) - Closed Specialty Diagnoses / Procedures Referred By Contac t Referred To Contact XR IMAGING Diagnoses Closed fracture of distal end of left fibula, unspecified fracture morphology, initial encounter Procedures XR ANKLE GENERAL 3V AP/LAT/OBL LEFT RADEX ANKLE COMPLETE MINIMUM 3 VIEWS Steve Rodriguez [address] [place] [address] Xr Imaging Referral ID Status Reason Start Date Expiration Date V isits Requested Visits Authorized [id number] Closed Auto-Generate d Referral 02/10/2022 09/27/2022 1 1 [facility] for referral (narrative)* Outpatient Procedure (Routine) - Open Specialty Diagnoses / Procedures Referred By Contac t Referred To Contact [facility] [place] Diagnoses Uncontrolled hypertension Palpitations Procedures US RENAL ARTERY ZULMA VAS LAB DUP-SCAN ARTL SKYLAR ABDL/PEL/SCROT&/RPR ORGN COM Preet Farrar DO [address] [place] [address] [facility] [address] [place] [address] Referral ID Status Reason Start Date Expiration Date V isits Requested Visits Authorized [id number] Open Auto-Generate d Referral 02/19/2022 02/19/2023 1 1 * Outpatient Procedure (Routine) - Closed Specialty Diagnoses / Procedures Referred By Contac t Referred To Contact [facility] [place] Diagnoses Uncontrolled hypertension Palpitations Procedures ECG COMPLETE ECG ROUTINE ECG W/LEAST 12 LDS W/I&R Preet Farrar, DO [address] [place] [address] [facility] [address] [address] Referral ID Status Reason Start Date Expiration Date V isits Requested Visits Authorized [id number] Closed Auto-Generate d Referral 02/19/2022 02/19/2023 1 1 * Outpatient Procedure (Routine) - Authorized Specialty Diagnoses / Procedures Referred By Contac t Referred To Contact [facility] [place] Diagnoses Uncontrolled hypertension Palpitations Procedures ECHO ECHO TTHRC R-T 2D W/WOM-MODE COMPL SPEC&COLR D Preet Farrar DO [address] [place] [address] [address] Referral ID Status Reason Start Date Expiration Date Visits Requested Visits Authorized [id number] Authorized Auto-Generat ed Referral 02/19/2022 02/19/2023 1 1 * Outpatient Procedure (Routine) - Open Specialty Diagnoses / Procedures Referred By Contac t Referred To Contact [facility] Diagnoses Uncontrolled hypertension Palpitations Procedures US CAROTID ARTERIES ZULMA VAS LAB DUPLEX SCAN EXTRACRANIAL ART COMPL BI STUDY Preet Farrar DO [address] [place] [address] [address] Referral ID Status Reason Start Date Expiration Date V isits Requested Visits Authorized [id number] Open Auto-Generate d Referral 02/19/2022 02/19/2023 1 1 [facility] for referral (narrative)* Diagnostic Procedure Only (Routine) - Closed Specialty Diagnoses / Procedures Referred By Contac t Referred To Contact XR IMAGING Diagnoses Closed fracture of distal end of left fibula, unspecified fracture morphology, initial encounter Procedures XR ANKLE GENERAL 3V AP/LAT/OBL LEFT RADEX ANKLE COMPLETE MINIMUM 3 VIEWS Steve Rodriguez [address] [place] [address] Xr Imaging Referral ID Status Reason Start Date Expiration Date V isits Requested Visits Authorized [id number] Closed Auto-Generate d Referral 02/28/2022 03/30/2023 1 1 [facility] for referral (narrative)* Diagnostic Procedure Only (Routine) - Pending Review Specialty Diagnoses / Procedures Referred By Contac t Referred To Contact BR IMAGING Diagnoses Encounter for screening mammogram for breast cancer Procedures LAURO SCREENING SCREENING MAMMOGRAPHY BI 2-VIEW BREAST INC CAD Preet Farrar, DO [address] [place] [address] [facility] [address] [place] [address] Referral ID Status Reason Start Date Expiration Date Visits Requested Visits Authorized [id number] Pending Review Auto-Generat ed Referral 03/26/2022 04/25/2023 1 1 T [facility] for referral (narrative)* Diagnostic Procedure Only (Routine) - Pending Review Specialty Diagnoses / Procedures Referred By Contac t Referred To Contact BR IMAGING Diagnoses Encounter for screening mammogram for breast cancer Procedures LAURO SCREENING SCREENING MAMMOGRAPHY BI 2-VIEW BREAST INC CAD Preet Farrar, DO [address] [place] [address] [facility] [address] [place] [address] Referral ID Status Reason Start Date Expiration Date Visits Requested Visits Authorized [id number] Pending Review Auto-Generat ed Referral 02/03/2024 03/04/2025 1 1 T [facility] for referral (narrative)* Diagnostic Procedure Only (Urgent) - Closed Specialty Diagnoses / Procedures Referred By Contac t Referred To Contact XR IMAGING Diagnoses Acute left ankle pain Procedures XR ANKLE GENERAL 3V AP/LAT/OBL LEFT RADEX ANKLE COMPLETE MINIMUM 3 VIEWS Nataly Ryan APRN.[employer] [address] [place] [address] [place] [address] Referral ID Status Reason Start Date Expiration Date V isits Requested Visits Authorized [id number] Closed Auto-Generate d Referral 01/23/2022 09/27/2022 1 1 [facility] for referral (narrative)No reason for referral information availableWMercy Hospital Work Phone: [facility] N[facility]* Diagnostic Procedure Only (Routine) - Closed Specialty Diagnoses / Procedures Referred By Contac t Referred To Contact XR IMAGING Diagnoses Closed fracture of distal end of left fibula, unspecified fracture morphology, initial encounter Procedures XR ANKLE GENERAL 3V AP/LAT/OBL LEFT RADEX ANKLE COMPLETE MINIMUM 3 VIEWS TestSteve patiño [address] [place] [address] Xr Imaging Referral ID Status Reason Start Date Expiration Date V isits Requested Visits Authorized [id number] Closed Auto-Generate d Referral 02/10/2022 09/27/2022 1 1 [facility] for visit Narrative* Diagnostic Procedure Only (Routine) - Closed Specialty Diagnoses / Procedures Referred By Contac t Referred To Contact XR IMAGING Diagnoses Closed fracture of distal end of left fibula, unspecified fracture morphology, initial encounter Procedures XR ANKLE GENERAL 3V AP/LAT/OBL LEFT RADEX ANKLE COMPLETE MINIMUM 3 VIEWS TestSteve patiño [address] [place] [address] Xr Imaging Referral ID Status Reason Start Date Expiration Date V isits Requested Visits Authorized [id number] Closed Auto-Generate d Referral 02/28/2022 09/27/2022 1 1 [facility] for visit Narrative* Diagnostic Procedure Only (Urgent) - Closed Specialty Diagnoses / Procedures Referred By Contac t Referred To Contact XR IMAGING Diagnoses Acute left ankle pain Procedures XR ANKLE GENERAL 3V AP/LAT/OBL LEFT RADEX ANKLE COMPLETE MINIMUM 3 VIEWS Nataly Ryan, WEAP[employer] OFFICER [employer]BILLBOARD POSTER [address] [place] [address] [place] [address] Referral ID Status Reason Start Date Expiration Date V isits Requested Visits Authorized [id number] Closed Auto-Generate d Referral 01/23/2022 09/27/2022 1 1 [facility] Discharge Instructions * Discharge Instr - DOMINIK* Valarie Aguilar, RN - 12/26/2020 1:39 PM EDT Continuity of Care Form Patient Name: Deonte Blanco : 1955 Admit date: 12/21/2020 Discharge [...] file. 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 Independent Med Delivery whole Wound Care Documentation [...] Readmission: 9 Discharging to Facility/ Agency Name: [facility] Address: [address] [place] [id number] Dialysis Facility (if applicable) Name: Address: Dialysis Schedule: Phone: Fax: Water Pumping Station Engineer/Manager Contracting signature: ICIAN SECTION Prognosis: Fair Condition at Discharge: Stable Rehab Potential (if transferring to Rehab): Good Recommended Labs or Other Treatments After Discharge: none Physician Certification: I certify the above information and transfer of Deonte Blanco is necessaryfor the continuing treatment of [...] level decreases, you may begin to take [id number] Extra Strength Tylenol. The maximum Tylenol you [...] you are to contact the office at [phone] or via [facility], for additional refills You can receive up [...] additional questions/concerns, please contact the office at [facility] message For life-threathening emergency, please call 91 documented in this encounter History of Present Illness * Vera Campbell DTR - 12/28/2020 1:02 PM EDT Nutrition update completed. Chart reviewed. Patient to be monitored and followed by the diet mechanical technician. * Steve Veloz - 12/28/2020 12:04 PM EDT Physical Therapy Facility/Department: [facility] Daily Treatment Note NAME: Deonte Blanco : 1955 Date of Service: 12/28/2020 [...] stated she was excited to go to [facility] because her kids are closer. Pt. still [...] 1 supine to sit (OK for leg skiing teacher or manual support of LEs) - PROGRESSING Short term goal 2: Sitting EOB [birth year] Modified [place] - PROGRESSING Short term goal 3: Transfer board to w/c min of 1 - progresing Short term goal 4: Gross LLE antigravity strength 3-/5, RLE 2/5 - PROGRESSING Short term goal 5: pt/ family indep donning LSO - PROGRESSING ocean transportation intermediary goals Time Frame for ocean transportation intermediary goals : 4 weeks ocean transportation intermediary goal 1: Bed mobility indep - PROGRESSING ocean transportation intermediary goal 2: Bed to chair, any safe approach, supv - PROGRESSING USP goal 3: Sit to stand mod of 1 - PROGRESSING USP goal 4: Sitting balance modified [place] 06/07, standing 10 - PROGRESSING ocean transportation intermediary goal 5: Amb 15', device, mod of [...] mask when out of room FRANCOIS Jacobsen, MOBILE HOMES REPAIRER * Valarie Aguilar RN - 12/28/2020 11:52 AM EDT Report called to [facility]. supervisor powder and primer canning time 1400 * Tammi Rae DO - 12/27/2020 6:36 PM EDT Images from the original note were not included. Hospitalist Progress Note 12/27/2020 6:36 PM Subjective: Admit Date: 12/21/2020 PCP: No primary care provider on file. Interval History: No overnight issues. DIET GENERAL; I/O last 3 completed shifts: In: 200 [P.O.:200] Out: 1 [Urine:1] Date 12/27/20 - 12/27/20 2359 Shift [id number] 9760-8730 7405-4246 24 Hour Total INTAKE P.O.(mL/kg/hr) 300(0.5) 240 [...] CHOL No results found for: PHART, PO2ART, [id number] No results for input(s): INR in the [...] For question after 7 PM, please contact [facility] hospitalist on consult. 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 of LEs) - PROGRESSING Short term goal 2: Sitting EOB [birth year] Modified [place] - PROGRESSING Short term goal 3: Transfer board to w/c min of 1 - NOT ADDRESSED Short term goal 4: Gross LLE antigravity strength 3-/5, RLE 2/5 - PROGRESSING Short term goal 5: pt/ family indep donning LSO - PROGRESSING ocean transportation intermediary goals Time Frame for USP goals : 4 weeks USP goal 1: Bed mobility indep - PROGRESSING ocean transportation intermediary goal 2: Bed to chair, any safe approach, supv - PROGRESSING ocean transportation intermediary goal 3: Sit to stand mod of 1 - PROGRESSING ocean transportation intermediary goal 4: Sitting balance modified [place] 06/07, standing 10 - PROGRESSING ocean transportation intermediary goal 5: Amb 15', device, mod of [...] mask when out of room FRANCOIS Jacobsen MOBILE HOMES REPAIRER * Tammi Rae DO - 12/26/2020 9:59 AM EDT Images from the original note were not included. Hospitalist Progress Note 12/26/2020 5:59 PM Subjective: Admit Date: 12/21/2020 PCP: No primary care provider on file. Interval History: No overnight issues. DIET GENERAL; I/O last 3 completed shifts: In: 2300 [P.O.:2300] Out: 1100 [Urine:1100] Date 12/26/20 0000 - 12/26/20 2359 Shift 5837-7006 2568-1358 1437-6559 24 Hour Total INTAKE P.O.(mL/kg/hr) 600(0.9) 200(0.3) [...] CHOL No results found for: PHART, PO2ART, [id number] No results for input(s): INR in the [...] For question after 7 PM, please contact [facility] hospitalist on consult. Tammi Rae MD [facility] * Mayte Gunter MD - 12/25/2020 12:46 PM EDT Hospitalist Progress Note 12/25/2020 12:46 PM Subjective: Admit Date: 12/21/2020 PCP: No primary care provider on file. Interval History: No overnight issues. DIET GENERAL; I/O last 3 completed shifts: In: - Out: 1900 [Urine:1900] Date 12/25/20 0000 - 12/25/20 2359 Shift [id number] 5207-8005 1079-9073 24 Hour Total INTAKE Shift Total(mL/kg) OUTPUT [...] CHOL No results found for: PHART, PO2ART, [id number] No results for input(s): INR in the [...] relistor. 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 Goals and/or treatment plan was established in collaboration with patient/family/other representatives. Jemima Bonilla OTR/Keshia Bonilla OT * Ness Aparicio MOBILE HOMES REPAIRER - 12/25/2020 10:21 AM EDT Physical Therapy Facility/Department: [facility] Daily Treatment Note NAME: Deonte Blanco : 1955 Date of Service: 12/25/2020 [...] 1 supine to sit (OK for leg skiing teacher or manual support of LEs) - PROGRESSING Short term goal 2: Sitting EOB [birth year] Modified [place] - PROGRESSING Short term goal 3: Transfer board to w/c min of 1 - NOT ADDRESSED Short term goal 4: Gross LLE antigravity strength 3-/5, RLE 2/5 - PROGRESSING Short term goal 5: pt/ family indep donning LSO - PROGRESSING USP goals Time Frame for USP goals : 4 weeks USP goal 1: Bed mobility indep - PROGRESSING ocean transportation intermediary goal 2: Bed to chair, any safe approach, supv - PROGRESSING ocean transportation intermediary goal 3: Sit to stand mod of 1 - PROGRESSING USP goal 4: Sitting balance modified [place] 06/07, standing 10 - PROGRESSING USP goal 5: Amb 15', device, mod of [...] Date 12/24/20 0000 - 12/24/20 2359 Shift 4518-0549 9549-1627 1994-4063 24 Hour Total INTAKE Shift Total(mL/kg) OUTPUT [...] CHOL No results found for: PHART, PO2ART, [id number] No results for input(s): INR in the [...] AVS -Ortho to sign off, please page fashion styling intern resident with questions or concerns Treva Henderson [...] Date 12/23/20 0000 - 12/23/20 2359 Shift 8381-7411 2816-8128 5214-1583 24 Hour Total INTAKE P.O.(mL/kg/hr) 400(0.6) 400 [...] CHOL No results found for: PHART, PO2ART, [id number] Recent Labs 12/21/20 0528 INR 1.0 No [...] Wbc trending down. Monitor. Gentle IV hydration -may d/c if eating ok. Ortho to restart anticoagulation POD #3 Constipation -got colace, miralax, MOM didn't help. D/w pt, will add enema PT/OT Plan for rehab Mayte Gunter MD [facility]ist * Diana Isaacs - 12/23/2020 11:24 AM EDT Physical Therapy Facility/Department: [facility] Daily Treatment Note NAME: Deonte Blanco : 1955 Date of Service: 12/23/2020 [...] 1 supine to sit (OK for leg skiing teacher or manual support of LEs) - PROGRESSING Short term goal 2: Sitting EOB [birth year] Modified [place] - PROGRESSING Short term goal 3: Transfer board to w/c min of 1 - NOT MET Short term goal 4: Gross LLE antigravity strength 3-/5, RLE 2/5 - NOT MET Short term goal 5: pt/ family indep donning LSO - PROGRESSING ocean transportation intermediary goals Time Frame for USP goals : 4 weeks ocean transportation intermediary goal 1: Bed mobility indep - PROGRESSING USP goal 2: Bed to chair, any safe approach, supv - NOT ATTEMPTED ocean transportation intermediary goal 3: Sit to stand mod of 1 - NOT MET ocean transportation intermediary goal 4: Sitting balance modified [place] 9/10, standing 3/10 - PROGRESSING USP goal 5: Amb 15', device, mod of [...] was completed by a student physical therapist commercial assistant under the supervision of the cosigning [...] output <40cc/shift, 60 overnight, will likely pull 3/ -Please empty and record output q shift [...] be monitored and followed by the diet mechanical technician. * Mayte Gunter MD - 12/22/2020 12:02 PM EDT Hospitalist Progress Note 12/22/2020 12:02 PM Subjective: Admit Date: 12/21/2020 PCP: No primary care provider on file. Interval History: No overnight issues. DIET GENERAL; I/O last 3 completed shifts: In: 2030 [P.O.:180; I.V.:1850] Out: 2640 [Urine:2250; Drains:140; Blood:250] Date 12/22/20 0000 - 12/22/20 235 Shift 5879-3240 8959-4701 6799-1244 24 Hour Total INTAKE Shift Total(mL/kg) OUTPUT Urine(mL/kg/hr) 1250(1.9) 800 205 Drains(mL/kg) 80(1) 50(0.6) 130(1.6) Shift Total(mL/kg) 1330(16.3) [...] Oral Once per day on Sun Thu dexamethasone 6 mg Intravenous Q6H ceFAZolin [...] CHOL No results found for: PHART, PO2ART, [id number] Recent Labs 12/21/20 0528 INR 1.0 No [...] anticoagulation POD #3 PT/OT Mayte Gunter MD [facility] Hospitalist * Jimbo Campuzano, PT - 12/22/2020 11:30 AM EDT Physical Therapy Facility/Department: [facility] Initial Assessment NAME: Deonte Blanco : 1955 Date of Service: 12/22/2020 [...] Will procure multipodus orthotics for now--consult to [employer] for LSO. Pt plans/ hopes to be discharged to [facility]--rehab level PT seems most appropriate. Prognosis: [...] (pt has order for LSO (consult to [employer])) Position Activity Restriction Spinal Precautions: No Bending, [...] she called squad to take her to [facility]. 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 Comments: pt had [...] notified as IV with air-in-line) AM-PAC Score [facility] Inpatient Mobility Raw Score : 6 (12/22/20 1104) [facility] Inpatient T-Scale Score : 23.55 (12/22/20 1104) Mobility Inpatient CMS 0-100% Score: 100 (12/22/20 1104) Mobility Inpatient [facility] G-Code Modifier : CN (12/22/20 110) Goals Short term goals Time Frame for Short term goals: 2 weeks Short term goal 1: Log roll min of 1 for pelvic support; min of 1 supine to sit (OK for leg skiing teacher or manual support of LEs) Short term goal 2: Sitting EOB 6/ Modified [place] Short term goal 3: Transfer board to w/c min of 1 Short term goal 4: Gross LLE antigravity strength 3-/5, RLE 2/5 Short term goal 5: pt/ family indep donning LSO ocean transportation intermediary goals Time Frame for ocean transportation intermediary goals : 4 weeks USP goal 1: Bed mobility indep USP goal 2: Bed to chair, any safe approach, supv USP goal 3: Sit to stand mod of 1 ocean transportation intermediary goal 4: Sitting balance modified [place] 9/10, standing 3/10 ocean transportation intermediary goal 5: Amb 15', device, mod of 1 Patient Goals Patient goals : walk Therapy Time Individual Concurrent Group Co-treatment Time In 1026 Time Out 1104 Minutes 38 Patient s Physical Therapy Plan of Care supervision is transferred to [facility] Rehab Department Physical Therapist. PT wore N95 mask, goggles, and gloves throughout entire session with patient. EDSON Wong present. Jimbo Campuzano PT * Steve Martinez [...] No December 31, 2020 3:01pm Power of Supervisor Cigar Making Hand No December 31 3:01pm Advance Directive Response Recorded Date/ Time Name of Medical Power of Supervisor Cigar Making Hand amanuel Greer November 02, 2022 5:30pm Living Will No November 02 5:30pm Power of Supervisor Cigar Making Hand Yes November 02, 2022 5:30pm Advance Directive Response Recorded Date/ Time Living Will No November 02 6:30pm Power of Supervisor Cigar Making Hand Yes November 02, 2022 6:30pm Advance Directive Response Recorded Date/ Time Living Will No July 01 8:20pm Power of Supervisor Cigar Making Hand No July 01 8:20pm Advance Directive Response Recorded Date/ Time Living Will No December 27, 2024 6:19pm Do you have a Healthcare Power of Supervisor Cigar Making Hand? No December 27, 2024 6:19pm Advance Directive Response Recorded Date/ Time Living Will No December 27, 2024 6:19pm Do you have a Healthcare Power of Supervisor Cigar Making Hand? No December 27, 2024 6:19pm Do you have a Healthcare Power of Supervisor Cigar Making Hand? No April 15, 2025 1:41pm Summary Purpose Family History No Family History [...] pm Encounter for postoperative care January 10:49am Chief Complaint Admit Date Hysterectomy,TLH, Bilateral Salpingectom y December 27, 2024 [...] am Atherosclerosis of renal artery January 4:09pm dka April 15, 2025 1:11 pm Reason for Visit Admit Date Endometrial hyperplasia without atypia A pril 2024 [...] 2 diabetes mellitus with hyperglycemia (HCC) Kathryn Rivero, WEAPONS OFFICER [employer].BILLBOARD POSTER [address] [place] [address] Referral ID Status Reason Start Date Expiration Date Visits Re quested Visits Authorized [id number] Denied 1 1 Specialty Diagnoses / Procedures Referred By Contac t Referred To Contact Cardiology Diagnoses Uncontrolled type 2 diabetes mellitus with hyperglycemia (HCC) Nonrheumatic aortic valve stenosis Hyperlipidemia, mixed Procedures CONSULT TO CARDIOLOGY OFFICE/OUTPATIENT [facility] 60 MINUTES Farrar, Preet L, DO [address] [place] [address] Referral ID Status Reason Start Date Expiration Date Visits Requested Visits Authorized [id number] Authorized PCP Requested Referral 12/09/2023 12/08/2024 1 1 Specialty Diagnoses / Procedures Referred By Contac t Referred To Contact Diagnoses Uncontrolled type 2 diabetes mellitus with hyperglycemia (HCC) Vaginal yeast infection Jacqueline Candelario, WEAPONS OFFICER [employer].BILLBOARD POSTER [address] [place] [address] Referral ID Status Reason Start Date Expiration Date V isits Requested Visits Authorized [id number] Authorized 01/27/2024 09/27/2024 1 1 Specialty Diagnoses / Procedures Referred By Contac t Referred To Contact Endocrinology Diagnoses Uncontrolled type 2 diabetes mellitus with hyperglycemia (HCC) Procedures CONSULT TO ENDOCRINOLOGY OFFICE/OUTPATIENT NEW HIGH [facility] 60 MINUTES Preet Farrar, DO [address] [place] [address] Referral ID Status Reason Start Date Expiration Date Visits Requested Visits Authorized [id number] Authorized PCP Requested Referral 03/21/2024 03/21/2025 1 1 Specialty Diagnoses / Procedures Referred By Contac t Referred To Contact Gynecology Diagnoses LLQ pain Thickened endometrium Procedures CONSULT TO GYNECOLOGY OFFICE/OUTPATIENT NEW HIGH [facility] 60 MINUTES PodCatalina cohen APRN.BILLBOARD POSTER [address] [place] [address] Referral ID Status Reason Start Date Expiration Date Visits Requested Visits Authorized [id number] Authorized PCP Requested Referral Auto-Generate d Referral [...] sprain Procedures URGENT CARE Self Nataly Ryan [employer] OFF[employer].BILLBOARD POSTER [address] [place] [address] Referral ID Status Reason Start Date Expiration Date Visits Re quested Visits Authorized [id number] Closed 01/23/2022 09/27/2022 1 1 Reason Comments New Patient Fracture Specialty Diagnoses / Procedures Referred By Contac t Referred To Contact Podiatry / PODIATRY Diagnoses foot fracture Procedures PANCHITO NEW FRACTURE Nataly Ryan, WEAPONS OFFICER [employer].BILLBOARD POSTER [address] [place] [address] Steve Rodriguez [address] [place] [address] Referral ID Status Reason Start Date Expiration Date Visits Re quested Visits Authorized [id number] Closed 01/30/2022 09/27/2022 1 1 Reason Comments Blood Pressure Specialty Diagnoses / Procedures [facility] To [facility] / FAMILY MEDICINE Diagnoses Elevated BP. UC f/u 4, left ankle fracture. Procedures 4C EST Self Kathryn Rivero, WE[employer] OFF[employer]ER [employer].BILLBOARD POSTER [address] [place] [address] Referral ID Status Reason Start Date Expiration Date Visits Re quested Visits Authorized [id number] Closed 01/31/2022 09/27/2022 1 1 Reason Comments Follow Up Specialty Diagnoses / Procedures [facility] Referred To Contact Family Practice / FAMILY MEDICINE Diagnoses Follow up BP, Thyroid Procedures 4C EST Preet Farrar, DO [address] [place] [address] Preet Farrar, DO [address] [place] [address] Referral ID Status Reason Start Date Expiration Date Visits Re quested Visits Authorized [id number] Closed 02/19/2022 09/27/2022 1 1 Reason Onset [...] Date Comments Refill Request 03/03/2023 Reason Comments [facility] thyroid PA Reason Comments go over blood [...] Date Comments Population Health Navigation Outreach 07/29/2023 [facility] care gap Reason Comments Medication Question Reason [...] Comments Transition Of Care Reason Comments Insulin [place] Reason Comments Patient Update Blood Sugar Readings Reason Comments Type 2 Diabetes Reason Comments Future Appointment Reason Onset Date Comments Refill Request 05/23/2024 Reason Comments ER F/U 05/22/2024 WC for le ft lower quadrant pain Reason [...] Reason Onset Date Comments Refill Request 04/03/2025 Reason Comments ER F/U [facility] 04/15 for hypergl ycemia, nausea, dizzy, BS this AM 169 Reason Onset Date Comments Refill Request 04/19/2025 Reason Onset Date Comments Refill Request 05/15/2025 Lab Orders 05/15/2025 Ordered Prescriptions (unrec ognized section and content) [...] section and content) DATE CREATED AUTHOR 09/18/2021 [facility] [employer] DATE CREATED AUTHOR AUTHOR'S ORGANIZ ATION 12/20/2023 [facility] ([place]) DATE CREATED AUTHOR AUTHOR'S ORGANIZ ATION 05/06/2025 [facility] DATE CREATED AUTHOR AUTHOR'S ORGANIZ ATION 05/24/2025 [facility] Source Comments (unrecognize d section and content) In the event this informatio n is protected by the Federal Confidentiality of Alcohol and Drug Abuse Patient Records regulations: The Federal rules restrict any use of the information to criminally investigate or prosecute any alcohol or drug abuse patient.[facility] the event this information is protected by the Federal Confidentiality of Alcohol and Drug Abuse Patient Records regulations: The Federal rules restrict any use of the information to criminally investigate or prosecute any alcohol or drug abuse patient.[facility] Center[facility] the event this information is protected by the Federal Confidentiality of Alcohol and Drug Abuse Patient Records regulations: The Federal rules restrict any use of the information to criminally investigate or prosecute any alcohol or drug abuse patient.[facility] Center[facility] the event this information is protected by the Federal Confidentiality of Alcohol and Drug Abuse Patient Records regulations: The Federal rules restrict any use of the information to criminally investigate or prosecute any alcohol or drug abuse patient.[facility] Center[facility] the event this information is protected by the Federal Confidentiality of Alcohol and Drug Abuse Patient Records regulations: The Federal rules restrict any use of the information to criminally investigate or prosecute any alcohol or drug abuse patient.[facility] Center[facility] the event this information is protected by the Federal Confidentiality of Alcohol and Drug Abuse Patient Records regulations: The Federal rules restrict any use of the information to criminally investigate or prosecute any alcohol or drug abuse patient.[facility] Center[facility] the event this information is protected by the Federal Confidentiality of Alcohol and Drug Abuse Patient Records regulations: The Federal rules restrict any use of the information to criminally investigate or prosecute any alcohol or drug abuse patient.[facility] Center[facility] the event this information is protected by the Federal Confidentiality of Alcohol and Drug Abuse Patient Records regulations: The Federal rules restrict any use of the information to criminally investigate or prosecute any alcohol or drug abuse patient.[facility] Center[facility] the event this information is protected by the Federal Confidentiality of Alcohol and Drug Abuse Patient Records regulations: The Federal rules restrict any use of the information to criminally investigate or prosecute any alcohol or drug abuse patient.[facility] Center[facility] the event this information is protected by the Federal Confidentiality of Alcohol and Drug Abuse Patient Records regulations: The Federal rules restrict any use of the information to criminally investigate or prosecute any alcohol or drug abuse patient.[facility] Center[facility] the event this information is protected by the Federal Confidentiality of Alcohol and Drug Abuse Patient Records regulations: The Federal rules restrict any use of the information to criminally investigate or prosecute any alcohol or drug abuse patient.[facility] CenterIn the event this information is protected by the Federal Confidentiality of Alcohol and Drug Abuse Patient Records regulations: The Federal rules restrict any use of the information to criminally investigate or prosecute any alcohol or drug abuse patient.[facility] CenterIn the event this information is protected by the Federal Confidentiality of Alcohol and Drug Abuse Patient Records regulations: The Federal rules restrict any use of the information to criminally investigate or prosecute any alcohol or drug abuse patient.[facility] CenterIn the event this information is protected by the Federal Confidentiality of Alcohol and Drug Abuse Patient Records regulations: The Federal rules restrict any use of the information to criminally investigate or prosecute any alcohol or drug abuse patient.[facility] CenterIn the event this information is protected by the Federal Confidentiality of Alcohol and Drug Abuse Patient Records regulations: The Federal rules restrict any use of the information to criminally investigate or prosecute any alcohol or drug abuse patient.[facility] CenterIn the event this information is protected by the Federal Confidentiality of Alcohol and Drug Abuse Patient Records regulations: The Federal rules restrict any use of the information to criminally investigate or prosecute any alcohol or drug abuse patient.[facility] CenterIn the event this information is protected by the Federal Confidentiality of Alcohol and Drug Abuse Patient Records regulations: The Federal rules restrict any use of the information to criminally investigate or prosecute any alcohol or drug abuse patient.[facility] CenterIn the event this information is protected by the Federal Confidentiality of Alcohol and Drug Abuse Patient Records regulations: The Federal rules restrict any use of the information to criminally investigate or prosecute any alcohol or drug abuse patient.[facility] CenterIn the event this information is protected by the Federal Confidentiality of Alcohol and Drug Abuse Patient Records regulations: The Federal rules restrict any use of the information to criminally investigate or prosecute any alcohol or drug abuse patient.[facility] CenterIn the event this information is protected by the Federal Confidentiality of Alcohol and Drug Abuse Patient Records regulations: The Federal rules restrict any use of the information to criminally investigate or prosecute any alcohol or drug abuse patient.[facility] CenterIn the event this information is protected by the Federal Confidentiality of Alcohol and Drug Abuse Patient Records regulations: The Federal rules restrict any use of the information to criminally investigate or prosecute any alcohol or drug abuse patient.[facility] CenterIn the event this information is protected by the Federal Confidentiality of Alcohol and Drug Abuse Patient Records regulations: The Federal rules restrict any use of the information to criminally investigate or prosecute any alcohol or drug abuse patient.[facility] CenterIn the event this information is protected by the Federal Confidentiality of Alcohol and Drug Abuse Patient Records regulations: The Federal rules restrict any use of the information to criminally investigate or prosecute any alcohol or drug abuse patient.[facility] CenterIn the event this information is protected by the Federal Confidentiality of Alcohol and Drug Abuse Patient Records regulations: The Federal rules restrict any use of the information to criminally investigate or prosecute any alcohol or drug abuse patient.[facility] CenterIn the event this information is protected by the Federal Confidentiality of Alcohol and Drug Abuse Patient Records regulations: The Federal rules restrict any use of the information to criminally investigate or prosecute any alcohol or drug abuse patient.[facility] CenterIn the event this information is protected by the Federal Confidentiality of Alcohol and Drug Abuse Patient Records regulations: The Federal rules restrict any use of the information to criminally investigate or prosecute any alcohol or drug abuse patient.[facility] CenterIn the event this information is protected by the Federal Confidentiality of Alcohol and Drug Abuse Patient Records regulations: The Federal rules restrict any use of the information to criminally investigate or prosecute any alcohol or drug abuse patient.[facility] CenterIn the event this information is protected by the Federal Confidentiality of Alcohol and Drug Abuse Patient Records regulations: The Federal rules restrict any use of the information to criminally investigate or prosecute any alcohol or drug abuse patient.[facility] CenterIn the event this information is protected by the Federal Confidentiality of Alcohol and Drug Abuse Patient Records regulations: The Federal rules restrict any use of the information to criminally investigate or prosecute any alcohol or drug abuse patient.[facility] CenterIn the event this information is protected by the Federal Confidentiality of Alcohol and Drug Abuse Patient Records regulations: The Federal rules restrict any use of the information to criminally investigate or prosecute any alcohol or drug abuse patient.[facility] CenterIn the event this information is protected by the Federal Confidentiality of Alcohol and Drug Abuse Patient Records regulations: The Federal rules restrict any use of the information to criminally investigate or prosecute any alcohol or drug abuse patient.[facility] CenterIn the event this information is protected by the Federal Confidentiality of Alcohol and Drug Abuse Patient Records regulations: The Federal rules restrict any use of the information to criminally investigate or prosecute any alcohol or drug abuse patient.[facility] CenterIn the event this information is protected by the Federal Confidentiality of Alcohol and Drug Abuse Patient Records regulations: The Federal rules restrict any use of the information to criminally investigate or prosecute any alcohol or drug abuse patient.[facility] CenterIn the event this information is protected by the Federal Confidentiality of Alcohol and Drug Abuse Patient Records regulations: The Federal rules restrict any use of the information to criminally investigate or prosecute any alcohol or drug abuse patient.[facility] CenterIn the event this information is protected by the Federal Confidentiality of Alcohol and Drug Abuse Patient Records regulations: The Federal rules restrict any use of the information to criminally investigate or prosecute any alcohol or drug abuse patient.[facility] CenterIn the event this information is protected by the Federal Confidentiality of Alcohol and Drug Abuse Patient Records regulations: The Federal rules restrict any use of the information to criminally investigate or prosecute any alcohol or drug abuse patient.[facility] CenterIn the event this information is protected by the Federal Confidentiality of Alcohol and Drug Abuse Patient Records regulations: The Federal rules restrict any use of the information to criminally investigate or prosecute any alcohol or drug abuse patient.[facility] CenterIn the event this information is protected by the Federal Confidentiality of Alcohol and Drug Abuse Patient Records regulations: The Federal rules restrict any use of the information to criminally investigate or prosecute any alcohol or drug abuse patient.[facility] CenterIn the event this information is protected by the Federal Confidentiality of Alcohol and Drug Abuse Patient Records regulations: The Federal rules restrict any use of the information to criminally investigate or prosecute any alcohol or drug abuse patient.[facility] CenterIn the event this information is protected by the Federal Confidentiality of Alcohol and Drug Abuse Patient Records regulations: The Federal rules restrict any use of the information to criminally investigate or prosecute any alcohol or drug abuse patient.[facility] CenterIn the event this information is protected by the Federal Confidentiality of Alcohol and Drug Abuse Patient Records regulations: The Federal rules restrict any use of the information to criminally investigate or prosecute any alcohol or drug abuse patient.[facility] CenterIn the event this information is protected by the Federal Confidentiality of Alcohol and Drug Abuse Patient Records regulations: The Federal rules restrict any use of the information to criminally investigate or prosecute any alcohol or drug abuse patient.[facility] CenterIn the event this information is protected by the Federal Confidentiality of Alcohol and Drug Abuse Patient Records regulations: The Federal rules restrict any use of the information to criminally investigate or prosecute any alcohol or drug abuse patient.[facility] CenterIn the event this information is protected by the Federal Confidentiality of Alcohol and Drug Abuse Patient Records regulations: The Federal rules restrict any use of the information to criminally investigate or prosecute any alcohol or drug abuse patient.[facility] CenterIn the event this information is protected by the Federal Confidentiality of Alcohol and Drug Abuse Patient Records regulations: The Federal rules restrict any use of the information to criminally investigate or prosecute any alcohol or drug abuse patient.[facility] CenterIn the event this information is protected by the Federal Confidentiality of Alcohol and Drug Abuse Patient Records regulations: The Federal rules restrict any use of the information to criminally investigate or prosecute any alcohol or drug abuse patient.[facility] CenterIn the event this information is protected by the Federal Confidentiality of Alcohol and Drug Abuse Patient Records regulations: The Federal rules restrict any use of the information to criminally investigate or prosecute any alcohol or drug abuse patient.[facility] CenterIn the event this information is protected by the Federal Confidentiality of Alcohol and Drug Abuse Patient Records regulations: The Federal rules restrict any use of the information to criminally investigate or prosecute any alcohol or drug abuse patient.[facility] CenterIn the event this information is protected by the Federal Confidentiality of Alcohol and Drug Abuse Patient Records regulations: The Federal rules restrict any use of the information to criminally investigate or prosecute any alcohol or drug abuse patient.[facility] CenterIn the event this information is protected by the Federal Confidentiality of Alcohol and Drug Abuse Patient Records regulations: The Federal rules restrict any use of the information to criminally investigate or prosecute any alcohol or drug abuse patient.[facility] CenterIn the event this information is protected by the Federal Confidentiality of Alcohol and Drug Abuse Patient Records regulations: The Federal rules restrict any use of the information to criminally investigate or prosecute any alcohol or drug abuse patient.[facility] CenterIn the event this information is protected by the Federal Confidentiality of Alcohol and Drug Abuse Patient Records regulations: The Federal rules restrict any use of the information to criminally investigate or prosecute any alcohol or drug abuse patient.[facility] CenterIn the event this information is protected by the Federal Confidentiality of Alcohol and Drug Abuse Patient Records regulations: The Federal rules restrict any use of the information to criminally investigate or prosecute any alcohol or drug abuse patient.[facility] CenterIn the event this information is protected by the Federal Confidentiality of Alcohol and Drug Abuse Patient Records regulations: The Federal rules restrict any use of the information to criminally investigate or prosecute any alcohol or drug abuse patient.[facility] CenterIn the event this information is protected by the Federal Confidentiality of Alcohol and Drug Abuse Patient Records regulations: The Federal rules restrict any use of the information to criminally investigate or prosecute any alcohol or drug abuse patient.[facility] CenterIn the event this information is protected by the Federal Confidentiality of Alcohol and Drug Abuse Patient Records regulations: The Federal rules restrict any use of the information to criminally investigate or prosecute any alcohol or drug abuse patient.[facility] CenterIn the event this information is protected by the Federal Confidentiality of Alcohol and Drug Abuse Patient Records regulations: The Federal rules restrict any use of the information to criminally investigate or prosecute any alcohol or drug abuse patient.[facility] CenterIn the event this information is protected by the Federal Confidentiality of Alcohol and Drug Abuse Patient Records regulations: The Federal rules restrict any use of the information to criminally investigate or prosecute any alcohol or drug abuse patient.[facility] CenterIn the event this information is protected by the Federal Confidentiality of Alcohol and Drug Abuse Patient Records regulations: The Federal rules restrict any use of the information to criminally investigate or prosecute any alcohol or drug abuse patient.[facility] CenterIn the event this information is protected by the Federal Confidentiality of Alcohol and Drug Abuse Patient Records regulations: The Federal rules restrict any use of the information to criminally investigate or prosecute any alcohol or drug abuse patient.[facility] CenterIn the event this information is protected by the Federal Confidentiality of Alcohol and Drug Abuse Patient Records regulations: The Federal rules restrict any use of the information to criminally investigate or prosecute any alcohol or drug abuse patient.[facility] CenterIn the event this information is protected by the Federal Confidentiality of Alcohol and Drug Abuse Patient Records regulations: The Federal rules restrict any use of the information to criminally investigate or prosecute any alcohol or drug abuse patient.[facility] CenterIn the event this information is protected by the Federal Confidentiality of Alcohol and Drug Abuse Patient Records regulations: The Federal rules restrict any use of the information to criminally investigate or prosecute any alcohol or drug abuse patient.[facility] CenterIn the event this information is protected by the Federal Confidentiality of Alcohol and Drug Abuse Patient Records regulations: The Federal rules restrict any use of the information to criminally investigate or prosecute any alcohol or drug abuse patient.[facility] CenterIn the event this information is protected by the Federal Confidentiality of Alcohol and Drug Abuse Patient Records regulations: The Federal rules restrict any use of the information to criminally investigate or prosecute any alcohol or drug abuse patient.[facility]In the event this information is protected by the Federal Confidentiality of Alcohol and Drug Abuse Patient Records regulations: The Federal rules restrict any use of the information to criminally investigate or prosecute any alcohol or drug abuse patient.[facility] CenterIn the event this information is protected by the Federal Confidentiality of Alcohol and Drug Abuse Patient Records regulations: The Federal rules restrict any use of the information to criminally investigate or prosecute any alcohol or drug abuse patient.[facility]In the event this information is protected by the Federal Confidentiality of Alcohol and Drug Abuse Patient Records regulations: The Federal rules restrict any use of the information to criminally investigate or prosecute any alcohol or drug abuse patient.[facility] CenterIn the event this information is protected by the Federal Confidentiality of Alcohol and Drug Abuse Patient Records regulations: The Federal rules restrict any use of the information to criminally investigate or prosecute any alcohol or drug abuse patient.[facility] CenterIn the event this information is protected by the Federal Confidentiality of Alcohol and Drug Abuse Patient Records regulations: The Federal rules restrict any use of the information to criminally investigate or prosecute any alcohol or drug abuse patient.[facility] CenterIn the event this information is protected by the Federal Confidentiality of Alcohol and Drug Abuse Patient Records regulations: The Federal rules restrict any use of the information to criminally investigate or prosecute any alcohol or drug abuse patient.[facility] CenterIn the event this information is protected by the Federal Confidentiality of Alcohol and Drug Abuse Patient Records regulations: The Federal rules restrict any use of the information to criminally investigate or prosecute any alcohol or drug abuse patient.[facility] CenterIn the event this information is protected by the Federal Confidentiality of Alcohol and Drug Abuse Patient Records regulations: The Federal rules restrict any use of the information to criminally investigate or prosecute any alcohol or drug abuse patient.[facility] CenterIn the event this information is protected by the Federal Confidentiality of Alcohol and Drug Abuse Patient Records regulations: The Federal rules restrict any use of the information to criminally investigate or prosecute any alcohol or drug abuse patient.[facility] CenterIn the event this information is protected by the Federal Confidentiality of Alcohol and Drug Abuse Patient Records regulations: The Federal rules restrict any use of the information to criminally investigate or prosecute any alcohol or drug abuse patient.[facility] CenterIn the event this information is protected by the Federal Confidentiality of Alcohol and Drug Abuse Patient Records regulations: The Federal rules restrict any use of the information to criminally investigate or prosecute any alcohol or drug abuse patient.[facility] CenterIn the event this information is protected by the Federal Confidentiality of Alcohol and Drug Abuse Patient Records regulations: The Federal rules restrict any use of the information to criminally investigate or prosecute any alcohol or drug abuse patient.[facility] CenterIn the event this information is protected by the Federal Confidentiality of Alcohol and Drug Abuse Patient Records regulations: The Federal rules restrict any use of the information to criminally investigate or prosecute any alcohol or drug abuse patient.[facility] CenterIn the event this information is protected by the Federal Confidentiality of Alcohol and Drug Abuse Patient Records regulations: The Federal rules restrict any use of the information to criminally investigate or prosecute any alcohol or drug abuse patient.[facility]In the event this information is protected by the Federal Confidentiality of Alcohol and Drug Abuse Patient Records regulations: The Federal rules restrict any use of the information to criminally investigate or prosecute any alcohol or drug abuse patient.[facility] CenterIn the event this information is protected by the Federal Confidentiality of Alcohol and Drug Abuse Patient Records regulations: The Federal rules restrict any use of the information to criminally investigate or prosecute any alcohol or drug abuse patient.[facility]In the event this information is protected by the Federal Confidentiality of Alcohol and Drug Abuse Patient Records regulations: The Federal rules restrict any use of the information to criminally investigate or prosecute any alcohol or drug abuse patient.[facility]In the event this information is protected by the Federal Confidentiality of Alcohol and Drug Abuse Patient Records regulations: The Federal rules restrict any use of the information to criminally investigate or prosecute any alcohol or drug abuse patient.[facility] CenterIn the event this information is protected by the Federal Confidentiality of Alcohol and Drug Abuse Patient Records regulations: The Federal rules restrict any use of the information to criminally investigate or prosecute any alcohol or drug abuse patient.[facility] CenterIn the event this information is protected by the Federal Confidentiality of Alcohol and Drug Abuse Patient Records regulations: The Federal rules restrict any use of the information to criminally investigate or prosecute any alcohol or drug abuse patient.[facility] CenterIn the event this information is protected by the Federal Confidentiality of Alcohol and Drug Abuse Patient Records regulations: The Federal rules restrict any use of the information to criminally investigate or prosecute any alcohol or drug abuse patient.[facility] CenterIn the event this information is protected by the Federal Confidentiality of Alcohol and Drug Abuse Patient Records regulations: The Federal rules restrict any use of the information to criminally investigate or prosecute any alcohol or drug abuse patient.[facility] CenterIn the event this information is protected by the Federal Confidentiality of Alcohol and Drug Abuse Patient Records regulations: The Federal rules restrict any use of the information to criminally investigate or prosecute any alcohol or drug abuse patient.[facility] CenterIn the event this information is protected by the Federal Confidentiality of Alcohol and Drug Abuse Patient Records regulations: The Federal rules restrict any use of the information to criminally investigate or prosecute any alcohol or drug abuse patient.[facility] CenterIn the event this information is protected by the Federal Confidentiality of Alcohol and Drug Abuse Patient Records regulations: The Federal rules restrict any use of the information to criminally investigate or prosecute any alcohol or drug abuse patient.[facility] CenterIn the event this information is protected by the Federal Confidentiality of Alcohol and Drug Abuse Patient Records regulations: The Federal rules restrict any use of the information to criminally investigate or prosecute any alcohol or drug abuse patient.[facility] CenterIn the event this information is protected by the Federal Confidentiality of Alcohol and Drug Abuse Patient Records regulations: The Federal rules restrict any use of the information to criminally investigate or prosecute any alcohol or drug abuse patient.[facility] CenterIn the event this information is protected by the Federal Confidentiality of Alcohol and Drug Abuse Patient Records regulations: The Federal rules restrict any use of the information to criminally investigate or prosecute any alcohol or drug abuse patient.[facility] CenterIn the event this information is protected by the Federal Confidentiality of Alcohol and Drug Abuse Patient Records regulations: The Federal rules restrict any use of the information to criminally investigate or prosecute any alcohol or drug abuse patient.[facility] CenterIn the event this information is protected by the Federal Confidentiality of Alcohol and Drug Abuse Patient Records regulations: The Federal rules restrict any use of the information to criminally investigate or prosecute any alcohol or drug abuse patient.[facility] CenterIn the event this information is protected by the Federal Confidentiality of Alcohol and Drug Abuse Patient Records regulations: The Federal rules restrict any use of the information to criminally investigate or prosecute any alcohol or drug abuse patient.[facility] CenterIn the event this information is protected by the Federal Confidentiality of Alcohol and Drug Abuse Patient Records regulations: The Federal rules restrict any use of the information to criminally investigate or prosecute any alcohol or drug abuse patient.[facility] CenterIn the event this information is protected by the Federal Confidentiality of Alcohol and Drug Abuse Patient Records regulations: The Federal rules restrict any use of the information to criminally investigate or prosecute any alcohol or drug abuse patient.[facility] CenterIn the event this information is protected by the Federal Confidentiality of Alcohol and Drug Abuse Patient Records regulations: The Federal rules restrict any use of the information to criminally investigate or prosecute any alcohol or drug abuse patient.[facility] CenterIn the event this information is protected by the Federal Confidentiality of Alcohol and Drug Abuse Patient Records regulations: The Federal rules restrict any use of the information to criminally investigate or prosecute any alcohol or drug abuse patient.[facility] CenterIn the event this information is protected by the Federal Confidentiality of Alcohol and Drug Abuse Patient Records regulations: The Federal rules restrict any use of the information to criminally investigate or prosecute any alcohol or drug abuse patient.[facility] CenterIn the event this information is protected by the Federal Confidentiality of Alcohol and Drug Abuse Patient Records regulations: The Federal rules restrict any use of the information to criminally investigate or prosecute any alcohol or drug abuse patient.[facility] CenterIn the event this information is protected by the Federal Confidentiality of Alcohol and Drug Abuse Patient Records regulations: The Federal rules restrict any use of the information to criminally investigate or prosecute any alcohol or drug abuse patient.[facility] CenterIn the event this information is protected by the Federal Confidentiality of Alcohol and Drug Abuse Patient Records regulations: The Federal rules restrict any use of the information to criminally investigate or prosecute any alcohol or drug abuse patient.[facility] CenterIn the event this information is protected by the Federal Confidentiality of Alcohol and Drug Abuse Patient Records regulations: The Federal rules restrict any use of the information to criminally investigate or prosecute any alcohol or drug abuse patient.[facility] CenterIn the event this information is protected by the Federal Confidentiality of Alcohol and Drug Abuse Patient Records regulations: The Federal rules restrict any use of the information to criminally investigate or prosecute any alcohol or drug abuse patient.[facility] CenterIn the event this information is protected by the Federal Confidentiality of Alcohol and Drug Abuse Patient Records regulations: The Federal rules restrict any use of the information to criminally investigate or prosecute any alcohol or drug abuse patient.[facility] CenterIn the event this information is protected by the Federal Confidentiality of Alcohol and Drug Abuse Patient Records regulations: The Federal rules restrict any use of the information to criminally investigate or prosecute any alcohol or drug abuse patient.[facility] CenterIn the event this information is protected by the Federal Confidentiality of Alcohol and Drug Abuse Patient Records regulations: The Federal rules restrict any use of the information to criminally investigate or prosecute any alcohol or drug abuse patient.[facility] CenterIn the event this information is protected by the Federal Confidentiality of Alcohol and Drug Abuse Patient Records regulations: The Federal rules restrict any use of the information to criminally investigate or prosecute any alcohol or drug abuse patient.[facility] CenterIn the event this information is protected by the Federal Confidentiality of Alcohol and Drug Abuse Patient Records regulations: The Federal rules restrict any use of the information to criminally investigate or prosecute any alcohol or drug abuse patient.[facility] CenterIn the event this information is protected by the Federal Confidentiality of Alcohol and Drug Abuse Patient Records regulations: The Federal rules restrict any use of the information to criminally investigate or prosecute any alcohol or drug abuse patient.[facility] Care Teams (unrecognized sec tion and content) Planning Supervisor Relationship Specialty Start Date End Date Preet Farrar, DO [address] [place] [address] PCP - General Family Practice 11/16/13 Planning Supervisor Relationship Specialty Start Date End Date Preet Farrar, DO [address] [place] [address] PCP - General Family Practice 11/16/13 Planning Supervisor Relationship Specialty Start Date End Date Preet Farrar, DO [address] [place] [address] PCP - General Family Practice 11/16/13 Planning Supervisor Relationship Specialty Start Date End Date Preet Farrar, DO [address] [place] [address] PCP - General Family Practice 11/16/13 Planning Supervisor Relationship Specialty Start Date End Date Preet Farrar, DO [address] [place] [address] PCP - General Family Practice 11/16/13 Planning Supervisor Relationship Specialty Start Date End Date Preet Farrar, DO [address] [place] [address] PCP - General Family Practice 11/16/13 Planning Supervisor Relationship Specialty Start Date End Date Preet Farrar, DO [address] [place] [address] PCP - General Family Practice 11/16/13 Planning Supervisor Relationship Specialty Start Date End Date Preet Farrar, DO [address] [place] [address] PCP - General Family Practice 11/16/13 Planning Supervisor Relationship Specialty Start Date End Date Preet Farrar, DO [address] [place] [address] PCP - General Family Practice 11/16/13 Planning Supervisor Relationship Specialty Start Date End Date Preet Farrar, DO [address] [place] [address] PCP - General Family Practice 11/16/13 Planning Supervisor Relationship Specialty Start Date End Date Preet Farrar, DO [address] [place] [address] PCP - General Family Practice 11/16/13 Planning Supervisor Relationship Specialty Start Date End Date Preet Farrar, DO [address] [place] [address] PCP - General Family Practice 11/16/13 Planning Supervisor Relationship Specialty Start Date End Date Preet Farrar, DO [address] [place] [address] PCP - General Family Practice 11/16/13 Planning Supervisor Relationship Specialty Start Date End Date Preet Farrar, DO [address] [place] [address] PCP - General Family Practice 11/16/13 Planning Supervisor Relationship Specialty Start Date End Date Preet Farrar, DO [address] [place] [address] PCP - General Family Practice 11/16/13 Planning Supervisor Relationship Specialty Start Date End Date Preet Farrar, DO [address] [place] [address] PCP - General Family Medicine 11/16/13 Planning Supervisor Relationship Specialty Start Date End Date Preet Farrar, DO [address] [place] [address] PCP - General Family Medicine 11/16/13 Planning Supervisor Relationship Specialty Start Date End Date Preet Farrar, DO [address] [place] [address] PCP - General Family Medicine 11/16/13 Planning Supervisor Relationship Specialty Start Date End Date Preet Farrar, DO [address] [place] [address] PCP - General Family Medicine 11/16/13 Team Status: Active Member Role Status Dates Dr. Preet Farrar , DO Family Provider Active Dr. Preet Farrar [...] Dr. Hermes Block MD Other Provider Active Planning Supervisor Relationship Specialty Start Date End Date Preet Farrar, DO [address] [place] [address] PCP - General Family Medicine 11/16/13 Team Status: Inactive Member Role Status Dates Dr. Preet Farrar DO Primary Care Provider, Attend ing Provider Active Dr. Carmen Dallas MD Referring Provider Active Planning Supervisor Relationship Specialty Start Date End Date Preet Farrar, DO [address] [place] [address] PCP - General Family Medicine 11/16/13 Planning Supervisor Relationship Specialty Start Date End Date Preet Farrar DO [address] [place] [address] PCP - General Family Medicine 11/16/13 Planning Supervisor Relationship Specialty Start Date End Date Preet Farrar DO [address] [place] [address] PCP - General Family Medicine 11/16/13 Planning Supervisor Relationship Specialty Start Date End Date Preet Farrar DO [address] [place] [address] PCP - General Family Medicine 11/16/13 Planning Supervisor Relationship Specialty Start Date End Date Preet Farrar DO [address] [place] [address] PCP - General Family Medicine 11/16/13 Team [...] Stapleton MD Attending Provider, Referring Provider Active Planning Supervisor Relationship Specialty Start Date End Date Preet Farrar DO [address] [place] [address] PCP - General Family Medicine 11/16/13 Planning Supervisor Relationship Specialty Start Date End Date Preet Farrar DO [address] [place] [address] PCP - General Family Medicine 11/16/13 Planning Supervisor Relationship Specialty Start Date End Date Preet Farrar DO [address] [place] [address] PCP - General Family Medicine 11/16/13 Team Status: Active Member Role Status Dates Dr. Preet Farrar DO Primary Care Provider Active Dr. Julien Reyna MD Attending Provider Active Dr. Kenton Stapleton MD Referring Provider Active Team Status: Inactive Member Role Status Dates Dr. Preet Farrar , DO Primary Care Provider Active Dr. Sean Bradley MD Attending Provider, Referring Provider Active Planning Supervisor Relationship Specialty Start Date End Date Preet Farrar DO [address] [place] [address] PCP - General Family Medicine 11/16/13 Planning Supervisor Relationship Specialty Start Date End Date Preet Farrar DO [address] [place] [address] PCP - General Family Medicine 11/16/13 Planning Supervisor Relationship Specialty Start Date End Date Preet Farrar DO [address] [place] [address] PCP - General Family Medicine 11/16/13 Planning Supervisor Relationship Specialty Start Date End Date Preet Farrar DO [address] [place] [address] PCP - General Family Medicine 11/16/13 Team Status: Active Member Role Status Dates Dr. Preet Farrar , DO Primary Care Provider Active Dr. Иван Valencia , DO Emergency Provider Active Dr. Halley Hodges MD Admit Provider, Other Provider Active Dr. Abisai Fuentes , DO Attending Provider, Other Pro vider Active Team Status: Inactive Member Role Status Dates Dr. Preet Farrar , DO Primary Care Provider Active Dr. Иван Valencia , DO Emergency Provider Active Dr. Halley Hodges MD Admit Provider, Other Provider Active Dr. Abisai Fuentes , DO Attending Provider Active Planning Supervisor Relationship Specialty Start Date End Date Preet Farrar DO [address] [place] [address] PCP - General Family Medicine 11/16/13 Planning Supervisor Relationship Specialty Start Date End Date Preet Farrar DO [address] [place] [address] PCP - General Family Medicine 11/16/13 Planning Supervisor Relationship Specialty Start Date End Date Preet Farrar DO [address] [place] [address] PCP - General Family Medicine 11/16/13 Planning Supervisor Relationship Specialty Start Date End Date Preet Farrar DO [address] [place] [address] PCP - General Family Medicine 11/16/13 Planning Supervisor Relationship Specialty Start Date End Date Preet Farrar DO [address] [place] [address] PCP - General Family Medicine 11/16/13 Planning Supervisor Relationship Specialty Start Date End Date Preet Farrar DO [address] [place] [address] PCP - General Family Medicine 11/16/13 Planning Supervisor Relationship Specialty Start Date End Date Preet Farrar DO [address] [place] [address] PCP - General Family Medicine 11/16/13 Planning Supervisor Relationship Specialty Start Date End Date Preet Farrar DO [address] [place] [address] PCP - General Family Medicine 11/16/13 Planning Supervisor Relationship Specialty Start Date End Date Preet Farrar DO [address] [place] [address] PCP - General Family Medicine 11/16/13 Planning Supervisor Relationship Specialty Start Date End Date Preet Farrar DO [address] [place] [address] PCP - General Family Medicine 11/16/13 Planning Supervisor Relationship Specialty Start Date End Date Preet Farrar DO [address] [place] [address] PCP - General Family Medicine 11/16/13 Planning Supervisor Relationship Specialty Start Date End Date Preet Farrar DO [address] [place] [address] PCP - General Family Medicine 11/16/13 Planning Supervisor Relationship Specialty Start Date End Date Preet Farrar DO [address] [place] [address] PCP - General Family Medicine 11/16/13 Planning Supervisor Relationship Specialty Start Date End Date Preet Farrar DO [address] [place] [address] PCP - General Family Medicine 11/16/13 Planning Supervisor Relationship Specialty Start Date End Date Preet Farrar DO [address] [place] [address] PCP - General Family Medicine 11/16/13 Planning Supervisor Relationship Specialty Start Date End Date Preet Farrar DO [address] [place] [address] PCP - General Family Medicine 11/16/13 Planning Supervisor Relationship Specialty Start Date End Date Preet Farrar DO [address] [place] [address] PCP - General Family Medicine 11/16/13 Planning Supervisor Relationship Specialty Start Date End Date Preet Farrar DO [address] [place] [address] PCP - General Family Medicine 11/16/13 Planning Supervisor Relationship Specialty Start Date End Date Preet Farrar DO [address] [place] [address] PCP - General Family Medicine 11/16/13 Planning Supervisor Relationship Specialty Start Date End Date Preet Farrar DO [address] [place] [address] PCP - General Family Medicine 11/16/13 Planning Supervisor Relationship Specialty Start Date End Date Preet Farrar DO [address] [place] [address] PCP - General Family Medicine 11/16/13 Planning Supervisor Relationship Specialty Start Date End Date Preet Farrar DO [address] [place] [address] PCP - General Family Medicine 11/16/13 Jacqueline Candelario, [employer]ICER [employer].BILLBOARD POSTER [address] [place] [address] Dam Attendant Family [facility] 09/04/24 Kathryn Rivero, [place].BILLBOARD POSTER [address] [place] [address] [facility] Planning Supervisor Relationship Specialty Start Date End Date Preet Farrar DO [address] [place] [address] PCP - General Family Medicine 11/16/13 Jacqueline Candelario, WE[employer] OFFICER [employer].BI[employer]BOARD POSTER [address] [place] [address] Dam Attendant Family [facility] 09/04/24 MartirKathryn, [employer] OFFICER [employer].BILLBOARD POSTER [address] [place] [address] [facility] 09/04/24 Planning Supervisor Relationship Specialty Start Date End Date Preet Farrar DO [address] [place] [address] PCP - General Family Medicine 11/16/13 Jacqueline Candelario, WE[employer] OFFICER [employer].BILLBOARD POSTER [address] [place] [address] [facility] 09/04/24 MartirKathryn, [employer] OFFICER [employer].BILLBOARD POSTER [address] [place] [address] [facility] 09/04/24 Planning Supervisor Relationship Specialty Start Date End Date Preet Farrar DO [address] [place] [address] PCP - General Family Medicine 11/16/13 Jacqueline Candelario, [employer] OFFICER [employer].BILLBOARD POSTER [address] [place] [address] [facility] 09/04/24 MartirKathryn, [employer] OFFICER [employer].BILLBOARD POSTER [address] [place] [address] [facility] 09/04/24 Planning Supervisor Relationship Specialty Start Date End Date Preet Farrar DO [address] [place] [address] PCP - General Family Medicine 11/16/13 Jacqueline Candelario, [employer] OFFICER [employer].BILLBOARD POSTER [address] [place] [address] [facility] 09/04/24 MartirKathryn, [employer] OFFICER [employer].BILLBOARD POSTER [address] [place] [address] [facility] 09/04/24 Planning Supervisor Relationship Specialty Start Date End Date Preet Farrar DO [address] [place] [address] PCP - General Family Medicine 11/16/13 Jacqueline Candelario, WE[employer] OFFICER [employer].BILLBOARD POSTER [address] [place] [address] [facility] 09/04/24 [facility] RehabilitationKathryn, WE[employer] OFFICER [employer].BILLBOARD POSTER [address] [place] [address] [facility] 09/04/24 Planning Supervisor Relationship Specialty Start Date End Date Preet Farrar DO [address] [place] [address] PCP - General Family Medicine 11/16/13 Jacqueline Candelario, [employer] OFFICER [employer].BILLBOARD POSTER [address] [place] [address] Dam Attendant Family [facility] 09/04/24 MartirKathryn, [employer] OFFICER [employer].BILLBOARD POSTER [address] [place] [address] Dam Attendant Family [facility] 09/04/24 Planning Supervisor Relationship Specialty Start Date End Date Preet Farrar DO [address] [place] [address] PCP - General Family Medicine 11/16/13 Jacqueline Candelario, WE[employer] OFFICER [employer].BILLBOARD POSTER [address] [place] [address] Dam Attendant [facility] 09/04/24 MartirKathryn, WE[employer] OFFICER [employer].BILLBOARD POSTER [address] [place] [address] [facility] Planning Supervisor Relationship Specialty Start Date End Date Preet Farrar DO [address] [place] [address] PCP - General Family Medicine 11/16/13 Jacqueline Candelario, WE[employer] OFFICER [employer].BILLBOARD POSTER [address] [place] [address] Dam Attendant [facility] 09/04/24 Kathryn Rivero, [employer] OFFICER [employer].BILLBOARD POSTER [address] [place] [address] Dam Attendant Family [facility] 09/04/24 Planning Supervisor Relationship Specialty Start Date End Date Preet Farrar DO [address] [place] [address] PCP - General [facility] 11/16/13 Kathryn Rivero, [place].BILLBOARD POSTER [address] [place] [address] [facility]/04/24 Planning Supervisor Relationship Specialty Start Date End Date Preet Farrar DO [address] [place] [address] PCP - General [facility] 11/16/13 Kathryn Rivero, [employer] OFFICER [employer].BILLBOARD POSTER [address] [place] [address] [facility]/24 Team Status: Active Member Role [...] 2024 End: September 13, 2024 Dr. Anushka Isaac MD Attending Provider Active Start: September 13, [...] 2024 End: December 12, 2024 Dr. Preet aFrrar DO Referring Provider Active Start: December 12, 2024 End: December 12, 2024 Dr. Anushka Isaac MD Attending Provider Active Start: December 12, 2024 End: December 12, 2024 Team Status: Active Member Role Status Dates Dr. Preet Farrar DO Primary Care Provider Active Start: December 15, 2024 End: December 15, 2024 Dr. Jamel Gray MD Attending Provider Active S tart: December 15, 2024 End: December 15, 2024 Dr. Anushka Isaac MD Referring Provider Active Start: December 15, 2024 End: December 15, 2024 Team Status: Active Member Role Status Dates Dr. Preet Farrar DO Primary Care Provider Active Start: December 27, 2024 Dr. Anushka Isaac MD Attending Provider Active Start: December 27, 2024 Dr. Anushka Isaac MD Referring Provider Active Start: December 27, 2024 Dr. Anushka Isaac MD Other Provider Active Start: December 27, 2024 Team Status: Inactive Member Role Status Dates Dr. Preet Farrar DO Primary Care Provider Active Start: December 27, 2024 End: December 28, 2024 Dr. Anushka Isaac MD Admit Provider Active Start: December 27, 2024 End: December 28, 2024 Dr. Anushka Isaac MD Attending Provider Active Start: December 27, 2024 End: December 28, 2024 Dr. Anushka Isaac MD Referring Provider Active Start: December 27, [...] Active Start: December 27, 2024 Dr. Anushka Isaac MD Admit Provider Active Start: December 27, 2024 Dr. Anushka Isaac MD Referring Provider Active Start: December 27, 2024 Dr. Anushka Isaac MD Other Provider Active Start: December 27, 2024 Dr. Reji Cline DO Other Provider Active Start: December 27, 2024 Dr. Douglas Ron MD Other Provider Active Start: December 27, 2024 Dr. Carmen [place] MD Attending Provider Active Start: December 27, 2024 Team Status: Active Member Role Status Dates Dr. Preet Farrar DO Primary Care Provider Active Start: December 28, 2024 Dr. Anushka Isaac MD Admit Provider Active Start: December 28, 2024 Dr. Anushka Isaac MD Attending Provider Active Start: December 28, 2024 Dr. Anushka Isaac MD Referring Provider Active Start: December 28, 2024 Dr. Anushka Isaac MD Other Provider Active Start: December 28, 2024 Dr. Reji Cline DO Other Provider Active Start: December 28, 2024 Dr. Douglas Ron MD Other Provider Active Start: December 28, 2024 Dr. Steven Holman MD Other Provider Active Sta rt: December 28, 2024 Planning Supervisor Relationship Specialty Start Date End Date Preet Farrar DO [address] [place] [address] PCP - General Family Medicine 11/16/13 [facility], [employer]ER [employer].BILLBOARD POSTER [address] [place] [address] [facility] Planning Supervisor Relationship Specialty Start Date End Date Preet Farrar DO [address] [place] [address] PCP - General Family Medicine 11/16/13 [facility], [employer]ER [employer].BILLBOARD POSTER [address] [place] [address] [facility] 09/04/24 Planning Supervisor Relationship Specialty Start Date End Date Preet Farrar DO [address] [place] [address] PCP - General Family Medicine 11/16/13 [facility], [employer].BILLBOARD POSTER [address] [place] [address] [facility] 09/04/24 Planning Supervisor Relationship Specialty Start Date End Date Preet Farrar DO [address] [place] [address] PCP - General Family Medicine 11/16/13 [facility] [facility], [employer] [address] [place] [address] [facility] 09/04/24 Team Status: Active Member Role Status Dates Dr. Preet Farrar DO Primary Care Provider Active Start: December 28, 2024 Dr. Anushka Isaac MD Admit Provider Active Start: December 28, 2024 Dr. Anushka Isaac MD Other Provider Active Start: December 28, [...] 2025 End: January 09, 2025 Dr. Anushka Isaac MD Attending Provider Active Start: January 09, [...] 2025 End: February 06, 2025 Dr. Anushka Isaac MD Attending Provider Active Start: February 06, [...] February 16, 2025 End: February 16, 2025 Planning Supervisor Relationship Specialty Start Date End Date Preet Farrar DO [address] [place] [address] PCP - General Family Medicine 11/16/13 Kathryn Rivero APRN.[employer] [address] [place] [address] [facility] 09/04/24 Liliana Bennett APRN.[employer] [address] [place] [address] [facility] 03/13/25 Planning Supervisor Relationship Specialty Start Date End Date Preet Farrar DO [address] [place] [address] PCP - General Family Medicine 11/16/13 Kathryn Rivero APRN.[employer] [address] [place] [address] [facility] 09/04/24 Liliana Bennett APRN.[employer] [address] [place] [address] [facility] 03/13/25 Planning Supervisor Relationship Specialty Start Date End Date Preet Farrar DO [address] [place] [address] PCP - General Family Medicine 11/16/13 Kathryn Rivero, [employer] [address] [place] [address] [facility] 09/04/24 Liliana Bennett [employer] [address] [place] [address] [facility] 03/13/25 Planning Supervisor Relationship Specialty Start Date End Date Preet Farrar DO [address] [place] [address] PCP - General Family Medicine 11/16/13 Kathryn Rivero, [employer] [address] [place] [address] [facility] 09/04/24 Liliana Bennett, [employer] [address] [place] [address] [facility] Planning Supervisor Relationship Specialty Start Date End Date Preet Farrar DO [address] [place] [address] PCP - General Family Medicine 11/16/13 Kathryn Rivero, [employer] [address] [place] [address] [facility] 09/04/24 Liliana Bennett, [employer] [address] [place] [address] [facility] 03/13/25 Planning Supervisor Relationship Specialty Start Date End Date Preet Farrar DO [address] [place] [address] PCP - General Family Medicine 11/16/13 Kathryn Rivero, [employer] [address] [place] [address] [facility] 09/04/24 Liliana Bennett, [employer] [address] [place] [address] [facility] 03/13/25 Team Status: Active Member Role/Relationship Status Dates Dr. Preet Farrar DO Primary Care Provider Active Team Status: Active Member Role/Relationship Status Dates Dr. Preet Farrar DO Primary Care Provider Active Start: December 27, 2024 Dr. Anushka Isaac MD Attending Provider Active Start: December 27, 2024 Dr. Anushka Isaac MD Referring Provider Active Start: December 27, 2024 Dr. Anushka Isaac MD Other Provider Active Start: December 27, 2024 Team Status: Inactive Member Role/Relationship Status Dates Dr. Preet Farrar DO Primary Care Provider Active Start: December 27, 2024 End: December 28, 2024 Dr. Anushka Isaac MD Admit Provider Active Start: December 27, 2024 End: December 28, 2024 Dr. Anushka Isaac MD Attending Provider Active Start: December 27, 2024 End: December 28, 2024 Dr. Anushka Isaac MD Referring Provider Active Start: December 27, 2024 End: December 28, 2024 Dr. Reji Cline DO Other Provider Active Start: December 27, 2024 End: December 28, 2024 Dr. Douglas Ron MD Other Provider Active Start: December 27, 2024 End: December 28, 2024 Dr. Steven Holman MD Other Provider Active Sta rt: December 27, 2024 End: December 28, 2024 Team Status: Active Member Role/Relationship Status Dates Dr. Preet Farrar DO Primary Care Provider Active Start: December 27, 2024 Dr. Anushka Isaac MD Admit Provider Active Start: December 27, 2024 Dr. Anushka Isaac MD Referring Provider Active Start: December 27, 2024 Dr. Anushka Isaac MD Other Provider Active Start: December 27, 2024 Dr. Reji Cline DO Other Provider Active Start: December 27, 2024 Dr. Douglas Ron MD Other Provider Active Start: December 27, 2024 Dr. Carmen Dallas MD Attending Provider Active Start: December 27, 2024 Team Status: Active Member Role/Relationship Status Dates Dr. Preet Farrar DO Primary Care Provider Active Start: December 28, 2024 Dr. Anushka Isaac MD Admit Provider Active Start: December 28, 2024 Dr. Anushka Isaac MD Attending Provider Active Start: December 28, 2024 Dr. Anushka Isaac MD Referring Provider Active Start: December 28, 2024 Dr. Anushka Isaac MD Other Provider Active Start: December 28, 2024 Dr. Reji Cline DO Other Provider Active Start: December 28, 2024 Dr. Douglas Ron MD Other Provider Active Start: December 28, 2024 Dr. Steven Holman MD Other Provider Active Sta rt: December 28, 2024 Team Status: Active Member Role/Relationship Status Dates Dr. Preet Farrar DO Primary Care Provider Active Start: December 28, 2024 Dr. Anushka Isaac MD Admit Provider Active Start: December 28, 2024 Dr. Anushka Isaac MD Other Provider Active Start: December 28, 2024 Dr. Reji Cline DO Other Provider Active Start: December 28, 2024 Dr. Douglas Ron MD Other Provider Active Start: December 28, 2024 Dr. Steven Holman MD Attending Provider Active Start: December 28, 2024 Dr. Steven Holman MD Other Provider Active Sta rt: December 28, 2024 Team Status: Inactive Member Role/Relationship Status Dates Dr. Preet Farrar DO Primary Care Provider Active Start: January 09, 2025 End: January 09, 2025 Dr. Preet Farrar DO Referring Provider Active Start: January 09, 2025 End: January 09, 2025 Dr. Anushka Isaac MD Attending Provider Active Start: January 09, 2025 End: January 09, 2025 Team Status: Inactive Member Role/Relationship Status Dates Dr. Preet Farrar DO Primary Care Provider Active Start: January 26, 2025 End: January 26, 2025 Dr. Preet Farrar DO Referring Provider Active Start: January 26, 2025 End: January 26, 2025 Dr. Julien Reyna MD Attending Provider Active Start: January 26, 2025 End: January 26, 2025 Team Status: Inactive Member Role/Relationship Status Dates Dr. Preet Farrar DO Primary Care Provider Active Start: February 06, 2025 End: February 06, 2025 Dr. Preet Farrar DO Referring Provider Active Start: February 06, 2025 End: February 06, 2025 Dr. Anushka Isaac MD Attending Provider Active Start: February 06, 2025 End: February 06, 2025 Team Status: Inactive Member Role/Relationship Status Dates Dr. Preet Farrar DO Primary Care Provider Active Start: February 16, 2025 End: February 16, 2025 Dr. Julien Reyna MD Attending Provider Active Start: February 16, 2025 End: February 16, 2025 Dr. Julien Reyna MD Referring Provider Active Start: February 16, 2025 End: February 16, 2025 Team Status: Inactive Member Role/Relationship Status Dates Dr. Preet Farrar DO Primary Care Provider Active Start: April 15, 2025 End: April 15, 2025 Dr. Berry Waldrop MD Emergency Provider Active S tart: April 15, 2025 End: April 15, 2025 Planning Supervisor Relationship Specialty Start Date End Date Preet Farrar DO [address] [place] [address] PCP - General Family Medicine 11/16/13 [facility], [employer] [address] [place], [place] [address] [facility] 09/04/24 Liliana Bennett, [employer] [address] [place], [place] [address] [facility] 03/13/25 Planning Supervisor Relationship Specialty Start Date End Date Preet Farrar DO [address] [facility], [place] [address] PCP - General Family Medicine 11/16/13 [facility] Kathryn, [employer] [address] [place] [address] [facility] 09/04/24 Liliana Bennett, [employer] [address] [place] [address] [facility] 03/13/25 Planning Supervisor Relationship Specialty Start Date End Date Preet Farrar DO [address] [place] [address] PCP - General Family Medicine 11/16/13 MartirKathryn, [employer] [address] [place] [address] [facility] 09/04/24 Liliana Bennett, [employer] [address] [place] [address] [facility] 03/13/25 Planning Supervisor Relationship Specialty Start Date End Date Preet Farrar DO [address] [place] [address] PCP - General Family Medicine 11/16/13 MartirKathryn, [employer] [address] [place] [address] [facility] 09/04/24 Liliana Bennett, [employer] [address] [place] [address] [facility] 03/13/25 Goals (unrecognized section and content) Goals [...] BE BASED ON THE PRIMARY CLINICAL RECORDS. [facility] provides no warranty or guarantee of the accuracy or completeness of information in this document.
[2025-05-25 23:40] VITALS: BP 148/90; PULSE 102; RESP 18; TEMP 36.7; O2SAT 98
[2025-05-25] MEDS: FERRIC SUBSULFATE 8 GM SOLN TOPICAL ×2 (23:46)
--- NOTE | 2025-05-26 01:57 | PCM.PN.OB ---
Subjective Subjective Patient seen for acute heavy vaginal bleeding after traumatic intercourse. Patient is 5 months postop from total vaginal hysterectomy. Patient had a routine recovery with no issues and then was having intercourse this afternoon and states she started having heavy vaginal bleeding after. She denies using anything other than penile penetration. She denies any pelvic pain pelvic pressure she has just been saturating a pad an hour for the last few hours. Objective Data Objective Data Vital Signs: Vital Signs Temp Pulse Resp BP Pulse Ox O2 Del Method 98.1 F 102 H 18 148/90 H 98 Room Air 05/25/25 23:40 05/25/25 23:40 05/25/25 23:40 05/25/25 23:40 05/25/25 23:40 05/25/25 21:39 Oxygen Delivery Method Room Air Weight: 222 lb Body Mass Index (BMI) 43.3 ROS Constitutional Constitutional: Reports systems reviewed and no addt'l complaints, except as documented; Denies as per HPI, change in weight, fatigue, fever(s), malaise, weakness or other Eyes Eyes: Reports systems reviewed and no addt'l complaints, except as documented; Denies as per HPI, change in vision or other ENT HEENT: Reports systems reviewed and no addt'l complaints, except as documented Respiratory/Chest Respiratory/Chest: Reports systems reviewed and no addt'l complaints, except as documented Gastrointestinal Gastrointestinal: Reports systems reviewed and no addt'l complaints, except as documented and as per HPI Genitourinary Genitourinary: Reports as per HPI Musculoskeletal Musculoskeletal: Reports systems reviewed and no addt'l complaints, except as documented Neurologic Neurologic: Reports systems reviewed and no addt'l complaints, except as documented Psychiatric Psychiatric: Reports systems reviewed and no addt'l complaints, except as documented Endocrine Endocrinology: Reports systems reviewed and no addt'l complaints, except as documented Hematologic/Lymphatic Hematologic/Lymphatic: Reports systems reviewed and no addt'l complaints, except as documented Physical Exam Const alert, oriented x3 and no apparent distress HEENT normocephalic Head and Scalp: atraumatic Eyes EOMs intact bilaterally and conjunctivae normal Neck full ROM, no lymphadenopathy, supple and thyroid normal General: trachea midline Lymph Lymphatic: no lymphadenopathy noted Resp normal respiratory effort, no retractions and no use of accessory muscles GI normal to inspection, nondistended, normoactive bowel sounds, soft to palpation, non-distended and no masses Inspection: Negative for abdominal distention Narrative: Blood present in the vault and active bleeding seen from tear at the top of the posterior vaginal cuff. Area suctioned and Monsel's paste applied to obtain hemostasis without complication. Back/Spine no CVA tenderness Extremity normal to inspection Skin no rashes or lesions noted Neuro moves all extremities and deep tendon reflexes 2+ bilaterally Psych mental status grossly normal Assessment & Plan (1) Tear of vaginal vault: COMMENT: Post intercourse, treated with Monsel's paste. Plan follow-up in office in 2 to 3 weeks consider nonhormonal compound cream for vaginal atrophy (2) Vaginal bleeding: (3) History of hysterectomy: PLAN: Plan Patient seen and area treated with Monsel's Paste stable for discharge to home. Charges/Coding Visit Charges Office Visits / Consults: 22304 OV L3 Est 20min
== END 2025-05-25 23:55 | disposition home or self-care (01) ==
PROVIDERS: Emergency Provider Emergency Medicine; PCP Student in an Organized Health Care Education/Training Program; Visit Provider Emergency Medicine
DX: N93.9 Abnormal uterine and vaginal bleeding, unspecified (principal); Z79.4 Long term (current) use of insulin; E11.9 Type 2 diabetes mellitus without complications; E78.00 Pure hypercholesterolemia, unspecified; Z87.891 Personal history of nicotine dependence; I10 Essential (primary) hypertension; Z79.02 Long term (current) use of antithrombotics/antiplatelets; Z86.73 Personal history of transient ischemic attack (TIA), and cerebral infarction without residual deficits; Z90.710 Acquired absence of both cervix and uterus; Z79.899 Other long term (current) drug therapy; K21.9 Gastro-esophageal reflux disease without esophagitis; Z79.84 Long term (current) use of oral hypoglycemic drugs; Z79.85 Long-term (current) use of injectable non-insulin antidiabetic drugs; Z98.51 Tubal ligation status; Z90.49 Acquired absence of other specified parts of digestive tract; N89.8 Other specified noninflammatory disorders of vagina
CPT/HCPCS: 99282

== ENCOUNTER 2025-07-13 10:45 | Inpatient (IN) | payer MEDICARE, MEDICAID, SELFPAY ==
[2025-07-13] VITALS (9 sets, daily range): BP systolic 153–191; BP diastolic 81–99; PULSE 89–104; RESP 14–21; TEMP 36.4–37.1; O2SAT 93–100; BMI 34.0; BMI 35.9
--- NOTE | 2025-07-13 10:54 | EDS_ITS ---
HPI History of Present Illness Chief Complaint: Hyperglycemia Informant: patient Onset/Context/Timing Onset: Today Context: Gradual Onset Timing: Continuous Quality: Aching Location: Generalized Worsened by: Nothing Relieved by: Nothing Narrative Narrative: Patient presents with elevated blood sugars that were noticed this morning. Patient checked her blood sugar and it was 254. Patient admits to some pain in her chest. Patient admits to some shortness of breath. Patient also admits to some nausea, vomiting, and diarrhea. Patient denies any polyuria or polydipsia. Patient admits to some subjective fevers. Patient also admits to some blurred vision. Patient states nothing makes her symptoms worse and nothing makes them better. [facility] Medical History Cardiology follow-up encounter History of stress test First degree AV block Simple endometrial hyperplasia without atypia Wears glasses Post-menopausal Marijuana use Insulin dependent diabetes mellitus Thyroid disease Fatty liver High cholesterol Ulcerative colitis GERD (gastroesophageal reflux disease) Leg cramps History of echocardiogram Hypertension PONV (postoperative nausea and vomiting) Encounter for screening examination for sexually transmitted disease HPV test positive Pelvic pain Thickened endometrium Anxiety Stroke/cerebrovascular accident (11/02/22) Former tobacco use Near syncope Elevated troponin Abnormal EKG Hyponatremia Prolonged QT interval Polyneuropathy Occlusion of left internal carotid artery Ischemic stroke 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 Irritable bowel syndrome Celiac disease Ulcerative colitis Muscle spasm Hypothyroidism Hypertension Vitamin D deficiency Diabetes mellitus Lumbar spinal stenosis Lumbar disc herniation with radiculopathy Ambulatory dysfunction Intractable back pain Home Medications ?Medication ?Instructions ?Recorded ?Last Taken ?Type ergocalciferol (vitamin D2) 1,250 50,000 unit PO MOFR SUPPLEMENT 12/18/20 07/10/25 History mcg (50,000 unit) capsule thyroid (pork) 120 mg tablet 120 tablet PO DAILY THYRO ID 12/18/20 07/13/25 History clopidogrel 75 mg tablet 75 mg PO DAILY BLOOD THINNER #30 11/04/22 07/13/25 Rx tabs carvedilol 6.25 mg tablet 6.25 mg PO BID blood pressur e 03/05/24 07/13/25 History pantoprazole 40 mg tablet,delayed 40 mg PO DAILY gerd #30 tabs 05/22/24 07/13/25 Rx release thyroid (pork) 30 mg tablet 30 mg PO MOWEFR thyroid 07/12/25 History ([place] Thyroid) insulin glargine 100 unit/mL (3 25 unit subcut DAILY b lood sugar 12/12/24 07/12/25 History mL) subcutaneous pen (Lantus Solostar U-100 Insulin) spironolactone 25 mg tablet 25 mg PO BID heart 2 5 07/13/25 History elderberry fruit 200 mg capsule 2,000 mg PO DAILY supp lement 12/13/24 07/13/25 History atorvastatin 40 mg tablet 40 mg PO QDAY cholesterol #9 0 tabs 01/26/25 07/13/25 Rx dulaglutide 3 mg/0.5 mL 3 mg subcut QWEEK blood suga r 07/13/25 07/07/25 History subcutaneous pen injector (Trulicity) Allergy/AdvReac Type Severity Reaction Status Date / Time metformin Allergy Severe Hives Verified 07/13/25 10:49 prednisone Allergy Intermediate Itching Verified 07/13/25 10:49 aspirin Allergy mouth Verified 07/13/25 10:49 swelling gluten Allergy Abd Verified 07/13/25 10:49 cramps/diarrhea ibuprofen Allergy mouth Verified 07/13/25 10:49 swelling Sulfa (Sulfonamide Allergy pt can't Verified 07/13/25 10:49 Antibiotics) remember Family History Mother Heart disease Alzheimers disease Father Heart disease Hypertension CAD (coronary artery disease) Myocardial infarction Thyroid disorder Diabetes Sister Cancer Surgical History History of total vaginal hysterectomy (TVH) History of esophagogastroduodenoscopy (EGD) Hx of colonoscopy History of hysteroscopy History of back surgery (~2019) Hx of umbilical hernia repair S/P tubal ligation S/P cholecystectomy S/P tonsillectomy and adenoidectomy History of lumbar fusion History of lumbar discectomy Social History adopted: No household members: none number of children: 3 sexually active: Yes Smoking Status: Former smoker alcohol intake: never substance use type: marijuana and other details: Medical cannabis, usually daily. seatbelt use: always do you feel safe at home: Yes ROS ROS ED Constitutional Constitutional ED: Reports fever(s) and subjective; Denies chills Eyes Eyes: Reports blurry vision; Denies diplopia ENT ENT ED: Reports rhinorrhea; Denies sore throat Cardiovascular Cardiovascular: Reports chest pain; Denies palpitations Respiratory/Chest Respiratory/Chest: Reports dyspnea; Denies cough Gastrointestinal Gastrointestinal: Reports diarrhea, nausea and vomiting Genitourinary Genitourinary ED: Denies dysuria or hematuria Musculoskeletal Musculoskeletal: Denies back pain or neck pain Integumentary Denies abscess or rash Neurologic Neurologic: Denies headache(s) or weakness Allergic/Immunologic Allergic/Immunologic ED: Denies mouth swelling or urticaria EXAM Physical Exam Const Vital Signs: 07/13/25 10:46 07/13/25 11:02 07/13/25 12:45 Temperature 97.5 F L Temperature Source Oral Pulse Rate 90 91 Respiratory Rate 21 H 16 Respiratory Pattern Tachypnea Blood Pressure 191/99 H 183/92 H Blood Pressure Mean 129 122 Pulse Ox 100 99 Oxygen Delivery Method Room Air Room Air 07/13/25 13:42 07/13/25 15:00 Temperature 98.7 F 98.4 F Temperature Source Oral Oral Pulse Rate 89 95 Respiratory Rate 15 14 Respiratory Pattern Blood Pressure 157/86 H 155/91 H Blood Pressure Mean 109 112 Pulse Ox 93 98 Oxygen Delivery Method Room Air Room Air Positive well nourished and well developed General Appearance ED: well developed and NAD HEENT Reports moist mucous membranes Neck supple and no JVD Resp normal respiratory effort and clear to auscultation bilaterally Cardio regular rate and regular rhythm GI non-tender and non-distended Palpation: soft Extremity normal to inspection General Extremety ED: Negative for edema or tenderness General Extremity: Negative for edema Neuro oriented x3, CN's II-XII intact bilaterally and no sensory deficits noted Sensorium / Orientation: alert Motor Exam: strength 5/5 throughout Psych Mood & Affect: anxious MDM MDM MDM Narrative Medical decision making narrative: Differential diagnosis includes cardiac dysrhythmia, cardiac ischemia, pneumon ia, bronchitis, diabetic ketoacidosis, pulmonary embolism, electrolyte abnormality, dehydration, urinary tract infection, and anxiety. EKG will be obtained to assess for cardiac dysrhythmia and cardiac ischemia. Chest x-ray will be obtained to assess for pneumonia and bronchitis. CBC will be obtained to assess for leukocytosis and anemia. Basic metabolic profile will be obtained to assess for electrolyte abnormality, renal function, and hyperglycemia. D- dimer will be obtained to assess for pulmonary embolism. High-sensitivity troponin will be obtained to assess for cardiac ischemia. 2-hour repeat high- sensitivity troponin will be obtained to assess for ongoing cardiac ischemia. Beta hydroxybutyrate will be obtained to assess for ketoacidosis. Venous blood gas will be obtained to assess for acidosis. Urinalysis will be obtained to assess for urinary tract infection, glucosuria, and ketonuria. History & Record Review Additional record(s) reviewed:: Prior outpatient record, Prior ED visit and Prior labs Lab Data Attestation: I reviewed the patient's lab results. Lab results narrative: CBC was reviewed. There is a mild leukocytosis of 15.0. Platelets were mildly elevated at 508. The remainder is within normal limits. Basic metabolic profile was reviewed. Glucose was 344. Sodium was slightly low 129 chloride was slightly low at 90. The remainder was essentially within normal limits. Initial high-sensitivity troponin was reviewed and was slightly elevated at 39. D-dimer was reviewed and was normal at 0.35. Beta hydroxybutyrate was reviewed and was slightly elevated at 2.9. Urinalysis was reviewed. There is no evidence of urinary tract infection or hematuria. Urine ketones were 150. 2- hour repeat high-sensitivity troponin was reviewed and was elevated at 75. Labs: Laboratory Results - last 24 hr 07/13/25 07/13/25 07/13/25 11:10 11:50 12:02 WBC 15.0 H RBC 4.86 Hgb 13.5 Hct 39.4 MCV 81.1 MCH 27.8 MCHC 34.3 RDW Std Deviation 37.7 RDW Coeff of [place] 12.8 Plt Count 508 H MPV 9.3 Immature Gran % (Auto) 0.500 Neut % (Auto) 89.5 H Lymph % (Auto) 7.2 L [place] % (Auto) 2.3 Eos % (Auto) 0.2 Baso % (Auto) 0.3 Absolute Neuts (auto) 13.4 H Absolute Lymphs (auto) 1.08 Nucleated RBC % 0 D-Dimer Quant (PE/DVT) 0.35 Sodium 129 L Potassium 4.7 Chloride 90 L Carbon Dioxide 20.6 L Anion Gap 19 H BUN 16 Creatinine 0.64 L Estim Creat Clear Calc 61.71 Est GFR (MDRD) Non-Af 96 BUN/Creatinine Ratio 24.5 H Glucose 344 H Calcium 10.3 Troponin T High Sens 39 H Troponin T Hi Sens 2 Hr b-Hydroxybutyric mmol/L 2.9 H Urine Color Yellow Urine Clarity Clear Urine pH 7.0 Ur Specific [place] 1.010 Urine Protein 30 H Urine Glucose (UA) 1000 H Urine Ketones 150 A* Urine Occult Blood Negative Urine Nitrite Negative Urine Bilirubin Negative Urine Urobilinogen Normal Ur Leukocyte Esterase Negative Urine RBC 0 SEEN Urine WBC 0 SEEN Ur Squamous Epith Cells 0-5 SEEN Urine Bacteria 0 SEEN Urine Mucus 0 SEEN 07/13/25 13:15 WBC RBC Hgb Hct MCV MCH MCHC RDW Std Deviation RDW Coeff of [place] Plt Count MPV Immature Gran % (Auto) Neut % (Auto) Lymph % (Auto) [place] % (Auto) Eos % (Auto) Baso % (Auto) Absolute Neuts (auto) Absolute Lymphs (auto) Nucleated RBC % D-Dimer Quant (PE/DVT) Sodium Potassium Chloride Carbon Dioxide Anion Gap BUN Creatinine Estim Creat Clear Calc Est GFR (MDRD) Non-Af BUN/Creatinine Ratio Glucose Calcium Troponin T High Sens Troponin T Hi Sens 2 Hr 75 H* b-Hydroxybutyric mmol/L Urine Color Urine Clarity Urine pH Ur Specific [place] Urine Protein Urine Glucose (UA) Urine Ketones Urine Occult Blood Urine Nitrite Urine Bilirubin Urine Urobilinogen Ur Leukocyte Esterase Urine RBC Urine WBC Ur Squamous Epith Cells Urine Bacteria Urine Mucus ABG Data Attestation: I personally reviewed and interpreted this ABG as follows: Interpretation: Venous blood gas was obtained. pH was 7.54. pO2 was 26, pCO2 was 25.7, and bicarb was 22. ABG results: ABG 07/13/25 12:07 Specimen Type TARA Sample Site Not entered VBG pH 7.54 H VBG pO2 26 VBG HCO3 22 VBG Total CO2 23 VBG O2 Sat (Calc) 58 VBG Base Excess -1 POC Mix VBG pCO2 Pt Tmp 25.7 L O2 Delivery Device Not entered Radiography Chest X-Ray - ED: 2 View, Read by ED Physician, Read by Radiologist and No Acute Disease Diagnostic Testing: Clinical Impression(s) from Imaging Studies Chest X-Ray 07/13/25 12:05 IMPRESSION: NO ACUTE FINDINGS. Borderline cardiomegaly. Reading Location: [facility] PA and lateral chest x-ray was obtained. There are 2 views. On my independent interpretation, lung drake are clear. There is normal cardiac silhouette. Bony thorax is normal. There is no acute process noted. Radiologist also interpreted the x-ray and agrees. EKG Initial EKG: Attestation: I personally reviewed and interpreted this EKG as follows: Interpretation: Sinus Rhythm (92) and Non-Specific ST Changes Comments: EKG was obtained. On my independent interpretation, it showed a normal sinus rhythm with a rate of 92. WA interval, QRS interval, and QTc intervals were all normal. Lingle was normal. There are nonspecific ST-T wave changes. Prior EKG tracings: available for review Prior: Unchanged (12/15/2024) Treatment and Re-Evaluation :: Patient was given IV fluids. Patient is unable to take aspirin. Patient was advised of her findings. Patient is more comfortable on reevaluation. Case was discussed with the hospitalist. They noted that the patient had a normal stress test back in September of this year. He recommended giving the patient another 1.5 L of normal saline and 10 units of Humalog. Blood sugar will be rechecked 2 hours after Humalog. I recommended admission to the hospital for further evaluation of the elevated troponins. Patient and family understand and are agreeable with the plan. All questions were answered. Discharge Plan Triage Chief Complaint: Hyperglycemia ED Provider: Hermes Christian Dx/Rx/DC Orders Clinical Impression: Chest pain, Elevated troponin, Hyperglycemia, Diabetes Prescriptions: No Action atorvastatin 40 mg tablet 40 mg PO QDAY Qty: 90 3RF thyroid (pork) 120 MG tablet 120 tablet PO DAILY ergocalciferol (vitamin D2) 50,000 UNIT capsule 50,000 unit PO MOFR clopidogrel 75 mg Tablet 75 mg PO DAILY Qty: 30 2RF carvedilol 6.25 mg tablet 6.25 mg PO BID spironolactone 25 mg tablet 25 mg PO BID pantoprazole 40 mg tablet,delayed release (DR/EC) 40 mg PO DAILY Qty: 30 0RF insulin glargine [Lantus Solostar U-100 Insulin] 100 unit/mL (3 mL) insulin pen 25 unit subcut DAILY thyroid (pork) [[place] Thyroid] 30 mg tablet 30 mg PO MOWEFR elderberry fruit 200 mg capsule 2,000 mg PO DAILY Trulicity 3 mg/0.5 mL pen injector 3 mg subcut QWEEK Primary Care Provider: Preet Farrar Referrals: Preet Farrar DO [Primary Care Provider, Medical] Print Language: Malian
--- NOTE | 2025-07-13 11:09 | EKG12_ITS ---
Test Reason : CP/SOB Blood Pressure : */* mmHG Vent. Rate : 92 BPM Atrial Rate : 92 BPM P-R Int : 184 ms QRS Dur : 86 ms QT Int : 368 ms P-R-T Axes : -53 15 19 degrees QTcB Int : 455 ms Unusual P axis, possible ectopic atrial rhythm Nonspecific ST abnormality Abnormal ECG Confirmed by KALIN TURNER, KIMBERLEY ([id number]), editor house organ PAT CONTRERAS ([id number]) on 07/14/2025 8:32:42 AM Referred By: MAGALY Confirmed By: KIMBERLEY GAGNON MD
[2025-07-13 12:03] LABS: Hematocrit 39.4 % (37-47); Hemoglobin 13.5 g/dL (12.0-15.0); Immature Granulocytes Count 0.080 X10^3/uL (0.0-0.0); Mean Corp Hgb Conc 34.3 g/dL (32-36); Mean Corpuscular Volume 81.1 fL (81-99); Mean Platelet Vol. 9.3 fl (6.2-12.0); NRBC Flagged by Analyzer 0 % (0-5); Platelet Count 508 K/mm3 (150-450); RBC Distribution Width CV 12.8 % (11.6-14.6); RBC Distribution Width SD 37.7 fl (35.1-43.9); Red Blood Count 4.86 M/mm3 (4.2-5.4); White Blood Count 15.0 K/mm3 (4.4-11.0)
[2025-07-13] MEDS: 0.9% Normal Saline (500mL Bag) 500 ML 1000 ML IV (12:04)
--- NOTE | 2025-07-13 12:05 | RAD_ITS ---
PROCEDURE: CHEST PA AND LATERAL 07/13/2025 REASON FOR EXAM: CHEST PAIN TECHNIQUE: Procedure Code: RADCXR Modality: DX Procedure: CHEST PA AND LATERAL COMPARISON: None FINDINGS: Hardware: EKG electrodes are seen. Heart: Borderline cardiomegaly calcification of the aortic arch. Mediastinum: The mediastinal contour is unremarkable. Lungs: Lungs are clear. Bones: Degenerative changes are identified within the thoracic spine. Prior intrapedicular screw fixation of the upper lumbar spine. RAD/Chest PA and Lateral IMPRESSION: NO ACUTE FINDINGS. Borderline cardiomegaly. Reading Location: [place] [id number]
[2025-07-13 12:13] LABS: D-Dimer Quantitative (DVT/PE) 0.35 FEU/ug/m (0.27-0.49)
[2025-07-13 12:13] LABS: Mucous, Urine 0 SEEN /hpf (<or=2+); Red Blood Cells-Urine 0 SEEN /hpf (0-5)
[2025-07-13 12:21] LABS: Color, Urine Yellow (Yellow); Glucose, Dipstick 1000 mg/dl (Normal); Leukocyte Esterase-Dipstick Negative /ul (Negative); Nitrite-Dipstick Negative (Negative); Occult Blood-Urine Negative /ul (Negative); Protein-Dipstick 30 mg/dl (Negative); Specific Gravity, Urine 1.010 (1.002-1.030); Urine Bilirubin Dipstick Negative (Negative)
[2025-07-13 12:24] LABS: Ketone-Dipstick 150 mg/dl (Negative)
[2025-07-13 12:28] LABS: SITE Not entered; VBG BASE EXCESS -1 mmol/L (-1.0-3.5); VBG PO2 26 mmHg (25-40); VBG SO2 58 % (50-70); VBG TCO2 23 mmol/L (23-33)
[2025-07-13 12:29] LABS: Squamous Epithelial Cells - UA 0-5 SEEN /hpf (5-10)
[2025-07-13 12:45] LABS: Anion Gap 19 (5-15); BUN 16 mg/dL (4-19); BUN/Creat Ratio 24.5 RATIO (10-20); Calcium,Total 10.3 mg/dL (7.6-11.0); Carbon Dioxide 20.6 mmol/L (21.0-32.0); Chloride 90 mmol/L (98-108); Estimated Creatinine Clearance 61.71 ml/min (50-250); Glucose 344 mg/dL (70-99); Potassium 4.7 mmol/L (3.3-5.1)
[2025-07-13 13:02] LABS: BETA-HYDROXYBUTYRATE 2.9 mmol/L (0.0-0.3); Troponin T High Sensitivity 39 ng/L (<=14)
[2025-07-13 13:54] LABS: Troponin T High Sens 2 HR 75 ng/L (<=14)
[2025-07-13] MEDS: 0.9% Normal Saline (1000mL) 1,000 ML 1000 ML IV (14:30)
[2025-07-13 16:17] LABS: Troponin T High Sens 4 HR 148 ng/L (<=14)
--- NOTE | 2025-07-13 16:38 | PCM.HP.STD ---
HPI - General General Date of Admission: 07/13/25 Date of Service: 07/13/25 Chief Complaint: Chest pain and nausea with vomiting HPI Narrative LEIDY AMADO, is a 69 F who presented to [facility] ED on 07/13/2025 with chest pain and nausea with vomiting. Medical history significant for type 2 diabetes mellitus, vascular disease with chronically occluded left carotid artery and moderate left renal artery stenosis, history of CVA with no residual deficits, hypertension, hyperlipidemia, hypothyroidism and GERD. Patient was in her normal state of health yesterday. This morning when she woke up she was feeling nauseous and had some chest discomfort. She has a continuous glucose monitor and noted that her blood sugar was in the 250s, which is higher than her typical morning sugar value. She then had a few episodes of vomiting and developed some subjective fevers and blurred vision, so she came to the ED for further evaluation. In the ED she was hypertensive to the 180s systolic and had borderline sinus tachycardia to the 90s, was otherwise afebrile and on room air at rest. EKG showed normal sinus rhythm and chest x-ray was unremarkable. However, troponin trend 39 > 75. Labs also notable for glucose 344, mild anion gap elevation of 19, beta-hydroxybutyrate 2.9, 150 ketones in the urine. Patient was given 1.5 L of IV fluids and 10 units of Humalog. Repeat glucose 2 hours later was 277. However, despite IV fluids the troponin worsened to 148. Thus, hospitalist was contacted for admission. I saw the patient at bedside in the ED, daughter was present. Patient was sitting back in bed and was mildly uncomfortable appearing due to ongoing lower chest/epigastric discomfort and nausea. She did have an episode of dry heaving when I was in the room. Noted that she had not eaten anything yet today. Denied any diarrhea. She reports fairly well-controlled glucose values on her CGM recently and denies any recent sick contacts. Reports compliance with her other home indications. Denies any radiation of the pain into her arms or up into her neck. No other acute concerns currently. Will be admitted for further management. [facility] Medical History (Updated 07/13/25 @ 18:[address] Reji Cline, DO) Elevated troponin Cardiology follow-up encounter History of stress test First degree AV block Simple endometrial hyperplasia without atypia Wears glasses Post-menopausal Marijuana use Insulin dependent diabetes mellitus Thyroid disease Fatty liver High cholesterol Ulcerative colitis GERD (gastroesophageal reflux disease) Leg cramps History of echocardiogram Hypertension PONV (postoperative nausea and vomiting) Encounter for screening examination for sexually transmitted disease HPV test positive Pelvic pain Thickened endometrium Anxiety Stroke/cerebrovascular accident (11/02/22) Former tobacco use Near syncope Elevated troponin Abnormal EKG Hyponatremia Prolonged QT interval Polyneuropathy Occlusion of left internal carotid artery Ischemic stroke 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 Irritable bowel syndrome Celiac disease Ulcerative colitis Muscle spasm Hypothyroidism Hypertension Vitamin D deficiency Diabetes mellitus Lumbar spinal stenosis Lumbar disc herniation with radiculopathy Ambulatory dysfunction Intractable back pain Home Medications ?Medication ?Instructions ?Recorded ?Last Taken ?Type ergocalciferol (vitamin D2) 1,250 50,000 unit PO MOFR SUPPLEMENT 12/18/20 07/10/25 History mcg (50,000 unit) capsule thyroid (pork) 120 mg tablet 120 tablet PO DAILY THYROID 12/18/20 07/13/25 History clopidogrel 75 mg tablet 75 mg PO DAILY BLOOD THINNER #30 11/04/22 07/13/25 Rx tabs carvedilol 6.25 mg tablet 6.25 mg PO BID blood pressure 03/05/24 07/13/25 History pantoprazole 40 mg tablet,delayed 40 mg PO DAILY gerd #30 tabs 05/22/24 07/13/25 Rx release thyroid (pork) 30 mg tablet 30 mg PO MOWEFR thyroid 07/21/24 07/12/25 History (Sherman Thyroid) insulin glargine 100 unit/mL (3 25 unit subcut DAILY blood sugar 12/12/24 07/12/25 History mL) subcutaneous pen (Lantus Solostar U-100 Insulin) spironolactone 25 mg tablet 25 mg PO BID heart 12/12/24 07/13/25 History elderberry fruit 200 mg capsule 2,000 mg PO DAILY supplement 12/13/24 07/13/25 History atorvastatin 40 mg tablet 40 mg PO QHS cholesterol 07/13/25 07/13/25 History dulaglutide 3 mg/0.5 mL 3 mg subcut QWEEK blood sugar 07/13/25 07/07/25 History subcutaneous pen injector (Trulicity) Allergy/AdvReac Type Severity Reaction Status Date / Time metformin Allergy Severe Hives Verified 07/13/25 10:49 prednisone Allergy Intermediate Itching Verified 07/13/25 10:49 aspirin Allergy mouth Verified 07/13/25 10:49 swelling gluten Allergy Abd Verified 07/13/25 10:49 cramps/diarrhea ibuprofen Allergy mouth Verified 07/13/25 10:49 swelling Sulfa (Sulfonamide Allergy pt can't Verified 07/13/25 10:49 Antibiotics) remember Family History Mother Heart disease Alzheimers disease Father Heart disease Hypertension CAD (coronary artery disease) Myocardial infarction Thyroid disorder Diabetes Sister Cancer Surgical History History of total vaginal hysterectomy (TVH) History of esophagogastroduodenoscopy (EGD) Hx of colonoscopy History of hysteroscopy History of back surgery (~2019) Hx of umbilical hernia repair S/P tubal ligation S/P cholecystectomy S/P tonsillectomy and adenoidectomy History of lumbar fusion History of lumbar discectomy Social History adopted: No household members: none number of children: 3 sexually active: Yes Smoking Status: Former smoker alcohol intake: never substance use type: marijuana and other details: Medical cannabis, usually daily. seatbelt use: always do you feel safe at home: Yes ROS Constitutional Constitutional: Reports fatigue; Denies chills, fever(s) or weakness Cardiovascular Cardiovascular: Reports chest pain; Denies dyspnea on exertion, edema, lightheadedness or orthopnea Respiratory/Chest Respiratory/Chest: Denies cough, productive cough, shortness of breath at rest or wheezing Gastrointestinal Gastrointestinal: Reports nausea and vomiting; Denies abdominal pain, constipation or diarrhea Genitourinary Genitourinary: Denies dysuria Musculoskeletal Musculoskeletal: Denies arthralgias or myalgias Neurologic Neurologic: Denies dizziness, focal weakness or headache(s) Vital Signs Vital Signs Vital Signs: 07/13/25 10:46 07/13/25 11:02 07/13/25 12:45 Temperature 97.5 F L Temperature Source Oral Pulse Rate 90 91 Respiratory Rate 21 H 16 Respiratory Pattern Tachypnea Blood Pressure 191/99 H 183/92 H Blood Pressure Mean 129 122 Pulse Ox 100 99 Oxygen Delivery Method Room Air Room Air 07/13/25 13:42 07/13/25 15:00 Temperature 98.7 F 98.4 F Temperature Source Oral Oral Pulse Rate 89 95 Respiratory Rate 15 14 Respiratory Pattern Blood Pressure 157/86 H 155/91 H Blood Pressure Mean 109 112 Pulse Ox 93 98 Oxygen Delivery Method Room Air Room Air Weight Weight: 79 kg Body Mass Index (BMI) 34.0 Physical Exam Const alert and oriented x3 Constitutional Narrative: Elderly female, class II obesity, mildly fatigued and mildly uncomfortable appearing due to ongoing chest/epigastric discomfort and nausea, otherwise sitting back in bed and answering questions appropriately. General Appearance: cooperative HEENT normocephalic, head/scalp atraumatic, hearing grossly normal bilaterally, nasal mucous membranes and turbinates normal and moist oral mucous membranes Eyes PERRL, EOMs intact bilaterally and conjunctivae normal Neck full ROM Chest inspection of chest normal Resp normal respiratory effort, normal air movement, no use of accessory muscles and clear to auscultation bilaterally Cardio no murmurs and peripheral pulses 2+ throughout Cardio Narrative: Tachycardic, regular rhythm. GI normal to inspection, nondistended, normoactive bowel sounds, soft to palpation, non-tender and non-distended Back/Spine normal ROM Extremity normal to inspection, full ROM and no pedal edema Skin no rashes or lesions noted Psych mental status grossly normal Results Lab / Micro Data 07/13/25 11:50 07/13/25 11:50 Labs: Laboratory Results - last 24 hr 07/13/25 11:10: Troponin T High Sens 39 H, b-Hydroxybutyric mmol/L 2.9 H 07/13/25 11:50: WBC 15.0 H, RBC 4.86, Hgb 13.5, Hct 39.4, MCV 81.1, MCH 27.8, MCHC 34.3, RDW Std Deviation 37.7, RDW Coeff of Neida 12.8, Plt Count 508 H, MPV 9.3, Immature Gran % (Auto) 0.500, Neut % (Auto) 89.5 H, Lymph % (Auto) 7.2 L, Jewell % (Auto) 2.3, Eos % (Auto) 0.2, Baso % (Auto) 0.3, Absolute Neuts (auto) 13.4 H, Absolute Lymphs (auto) 1.08, Nucleated RBC % 0, D-Dimer Quant (PE/DVT) 0.35, Sodium 129 L, Potassium 4.7, Chloride 90 L, Carbon Dioxide 20.6 L, Anion Gap 19 H, BUN 16, Creatinine 0.64 L, Estim Creat Clear Calc 61.71, Est GFR (MDRD) Non-Af 96, BUN/Creatinine Ratio 24.5 H, Glucose 344 H, Calcium 10.3 07/13/25 12:02: Urine Color Yellow, Urine Clarity Clear, Urine pH 7.0, Ur Specific [place] 1.010, Urine Protein 30 H, Urine Glucose (UA) 1000 H, Urine Ketones 150 A*, Urine Occult Blood Negative, Urine Nitrite Negative, Urine Bilirubin Negative, Urine Urobilinogen Normal, Ur Leukocyte Esterase Negative, Urine RBC 0 SEEN, Urine WBC 0 SEEN, Ur Squamous Epith Cells 0-5 SEEN, Urine Bacteria 0 SEEN, Urine Mucus 0 SEEN 07/13/25 13:15: Troponin T Hi Sens 2 Hr 75 H* 07/13/25 15:15: Troponin T Hi Sens 4Hr 148 H* ABG Data ABG results: ABG 07/13/25 12:07 Specimen Type TARA Sample Site Not entered VBG pH 7.54 H VBG pO2 26 VBG HCO3 22 VBG Total CO2 23 VBG O2 Sat (Calc) 58 VBG Base Excess -1 POC Mix VBG pCO2 Pt Tmp 25.7 L O2 Delivery Device Not entered Imaging Radiology Impression Chest X-Ray 07/13/25 12:05 IMPRESSION: NO ACUTE FINDINGS. Borderline cardiomegaly. Reading Location: [id number] Assessment & Plan Assessment/Plan (1) NSTEMI, initial episode of care: PLAN: Plan Patient is a 69-year-old female who presented to [facility] ED on 07/13/2025 with chest pain and nausea with vomiting. 1. NSTEMI ? Admit under inpatient status to PCU. Cardiology consulted. Troponin trend 39 > 75 > 148. EKG with normal sinus rhythm, no ST changes. Chest x-ray unremarkable. Patient with history of significant vascular disease as below. However, she notably did have a cardiac stress test done in September that was negative. Echo in September showed EF 65%, stage I diastolic dysfunction, mild concentric LV hypertrophy, mild to moderate AV stenosis, no other concerning findings. Given worsening troponins and chest pain/epigastric discomfort with nausea, have concern for symptoms are an anginal equivalent. Initiated on heparin drip. N.p.o. at midnight with possible plan for left heart cath tomorrow. Appreciate further cardiology recommendations. 2. Type 2 diabetes mellitus with hyperglycemia ? Glucose 344 on admit. A1c 8.3%. Last A1c 7.9% in November and prior to this her A1c had been closer to 7.0%. Patient wears a CGM monitor and reports that her blood glucoses typically read in the mid to high 100s. She reports compliance with her home Lantus 25 units at night and weekly Trulicity. Suspect glucose on admission is elevated due to NSTEMI as above. Notably did have a mild anion gap and beta hydroxybutyrate 2.9 in the ED as well as ketones in the urine. ABG with pH 7.5. No prior history of DKA. Given 10 units of Humalog in the ED with repeat glucose 277. Will give another 10 units Humalog and another 1 L of IV fluids this evening. Continue home Lantus 25 units at night and Humalog sliding scale insulin with meals while inpatient, adjust as needed. 3. Hyponatremia ? Sodium 129, chloride 90 on admit. Corrected sodium 133 in setting of hyperglycemia. Suspect due to mild degree of dehydration. Given IV fluids on admission as above, follow-up a.m. sodium level. 4. Leukocytosis ? WBC count 15.0 on admit, neutrophil predominant. Afebrile, no other infectious symptoms noted. Seems most likely reactive due to NSTEMI above. No need for further infectious workup or antibiotics at this time. Follow-up a.m. WBC count. 5. History of atherosclerotic vascular disease, history of CVA, hypertension, hyperlipidemia ? Follows with [facility], last office visit in January. History of moderate left renal artery stenosis and chronically occluded left carotid artery stenosis with good collateral circulation. History of CVA with no residual deficits. Hypertensive to the 180s systolic on admit suspected due to NSTEMI as above. Okay to continue home Coreg, spironolactone, atorvastatin and Plavix. A.m. lipid profile ordered. 6. Hypothyroidism ? Last TSH normal in November, repeat TSH ordered. Continue home Sherman Thyroid. 7. GERD ? Continue home PPI. 8. Class II obesity ? BMI 35.9 on admit. Complicates hospital course and care. DVT prophylaxis: Not indicated, on heparin drip CODE STATUS: Full code, verified Expected disposition: TBD Total clinical time spent by myself addressing the patient's medical issues, reviewing all the data, and collaborating with patient's care team: 79 minutes. Charges/Coding Visit Charges Inpatient E&M: 47497 Init Hosp L3
--- NOTE | 2025-07-13 16:55 | CASEMGMT ---
Care Management Face to Face with patient for initial transition planning/care coordination assessment in the ED. This entry writer introduced self and role at [facility]. Patient alert and oriented. Patient willing to participate in assessment, though otis Greer at bedside answered most questions due to patient sleeping. Care providers, pharmacy, and demographics verified. Admitting Diagnosis: NSTEMI, initial episode of care Other diagnosis history: type 2 diabetes mellitus, vascular disease with chronically occluded left carotid artery and moderate left renal artery stenosis, CVA with no residual deficits, hypertension, hyperlipidemia, hypothyroidism and GERD PCP: Charan Specialists: , endocrinology. Nadia, nephrology. Axel, cardiology. Mirna, vascular surgery. Preferred Pharmacy: [facility] Insurance: [facility] Medicare Dual (primary). Medicaid (secondary). Prescription Benefit: yes Living Will/HPOA: daughterZoey (primary). Not on file here; daughter lives in [place] and is unable to bring in documents. LNOK: daughterZoey. Sister, Diamond. Living Arrangements: patient lives alone in a 2 story home with first floor living and 3 steps to enter. Patient independent with all ADLs/IADLs. Transportation: patient drives and no concerns DME: [employer] HHC: previously had, but does not recall agency [facility]Rehab: [facility] Community Resources: none known Behavioral Health History: anxiety, per chart Patient goals: Patient wishes to discharge home, denies need for home health care at this time. Patient denies any further needs or concerns at this time. Disposition Plan: admission to acute; RN CM/SW to follow for discharge planning needs that may arise. Teagan Nunez, VIDEO EDITOR, [employer]
--- OUTSIDE RECORDS SUMMARY | 2025-07-13 17:07 | XMS RPT_ITS | CCD ---
Author Organization [facility] Care Team Providers Care Yard Switcher Name Role Phone Unavailable Primary Care Provider [...] Care Provider Dr. Jamel Gray Attending Provider Dr. Иван Valencia Emergency Provider Dr. Halley Hodges Admit Provider Dr. Halley Hodges Other Provider Dr. Abisai Fuentes Attending Provider Dr. Abisai Fuentes Other Provider Dr. Preet Farrar Referring Provider Dr. Kenton Stapleton Attending Provider PREET FARRAR DO Primary Care Physician PREET FARRAR DO Primary Care Unavailable OLLIE TURNER, ELOISA Attending Unavailable Preet Farrar DO Primary Care Provider Kodak CONTINUOUS IMPROVEMENT SPECIALIST.DIRECTOR STATISTICAL PROGRAMMING, Jacqueline Magalys Unavailable Martir CONTINUOUS IMPROVEMENT SPECIALIST.DIRECTOR STATISTICAL PROGRAMMING, Kathryn Unavailable Dr. Preet Farrar DO Primary Care Provider [phone] Axel TURNER, Dr. Victoria Attending Provider Dr. Julien Reyna MD Referring Provider Dr. Hermes Block MD Attending Provider Dr. Preet Farrar DO Referring Provider Dr. Anushka Isaac MD Attending Provider [phone] Dr. Julien Reyna MD Other Provider Isaac TURNER, Dr. Mccullough Attending Provider Dr. Anushka Isaac MD Referring Provider Dr. Anushka Isaac MD Other Provider Rafael TURNER, Dr. Reveles Admit Provider Dr. Reji Cline DO Other Provider Asaf TURNER, Dr. Douglas Soto Other Provider River TURNER, Dr. Harris Other Provider Burt TURNER, Dr. Carmen Edwards Attending Provider Dr. Preet Farrar DO Primary Care Provider Dr. Preet Farrar DO Referring Provider Rafael TURNER, Dr. Reveles Attending Provider [phone] River TURNER, Dr. Harris Attending Provider Axel TURNER, Dr. Victoria Attending Provider Axel TURNER, Dr. Victoria Referring Provider Rios CAMERONN.DEREK, [place] Unavailable Charan QUAN, Dr. Oviedo Primary Care Provider Rafael TURNER, Dr. Reveles Attending Provider Rafael TURNER, Dr. Reveles Referring Provider Charan QUAN, Dr. Oviedo Referring Provider Benjie TURNER, Dr. Smart Emergency Provider Charan QUAN, Dr. Oviedo Primary Care Provider Charan QUAN, Dr. Oviedo Referring Provider [phone] Rafael TURNER, Dr. Reveles Attending Provider Benjie TURNER, Dr. Smart Attending Provider FARRAR, PREET L Primary Care Unavailable FARRAR, PREET L Attending Unavailable FARRAR, PREET L Primary Care Unavailable FARRAR, PREET L Primary Care Unavailable BENDARAM, BEAN GARCIA Referring Unavaila ble FARRAR, PREET L Primary Care Unavailable FARRAR, PREET L Attending Unavailable FARRAR, PREET L Primary Care Unavailable JACQUELINE CANDELARIO Referring Unavailabl e FARRAR, PREET L Primary Care Unavailable RIOS, LILIANA AMADEO Attending Unavailable MAKEY, DAYANAND Referring Unavailable FARRAR, PREET L Primary Care Unavailable FARRAR, PREET L Attending Unavailable FARRAR, PREET L Primary Care Unavailable FARRAR, PREET L Primary Care Unavailable BENDARAM, BEAN GARCIA Attending Unavaila ble BENDARAM, BEAN GARCIA Attending Unavaila ble FARRAR, [...] LILIANA AMADEO Referring Unavailable FARRAR, PREET L Primary Care Unavailable RIOS, LILIANA AMADEO Referring Unavailable FARRAR, PREET L Referring Unavailable FARRAR, PREET L Primary Care Unavailable FARRAR, PREET L Primary Care Unavailable FARRAR, PREET L Referring Unavailable BENDARAM, BEAN GARCIA Attending Unavaila ble FARRAR, PREET L Primary Care Unavailable BENDARAM, BEAN GARCIA Referring Unavaila ble FARRAR, PREET L Attending Unavailable FARRAR, PREET L Primary Care Unavailable Farrar Dr. Preet QUAN Primary Care Physician Benjie TURNER, Dr. Smart Attending Physician Dr. Berry Waldrop MD Emergency Department Physici an Dr. Anushka Isaac MD Attending Physician Dr. Preet Farrar DO Referring Provider Anushka Isaac Attending Unavailable Farrar, Preet Referring Unavailable Farrar, Preet Primary Care Unavailable Farrar, Preet Primary Care Unavailable Jamel Gray Attending Unavailable Anushka Isaac Referring Unavailable Anushka Isaac Attending Unavailable Farrar, Preet Primary Care Unavailable Anushka Isaac Attending Unavailable Farrar, Preet Primary Care Unavailable Anushka Isaac Referring Unavailable Anushka Isaac Consulting Unavailable Axel, Julien Attending Unavailable Axel, Julien Referring Unavailable Farrar, Preet Primary Care Unavailable Axel, Julien Referring Unavailable Axel, Julien Attending Unavailable Farrar, Preet Primary Care Unavailable Anushka Isaac Admitting Unavailable Reji Cline Consulting Unavailable Farrar, Preet Primary Care Unavailable Anushka Isaac Referring Unavailable Anushka Isaac Attending Unavailable Douglas Ron Consulting Unavailable Steven Holman Consulting Unavailable Anushka Isaac Attending Unavailable Farrar, Preet Primary Care Unavailable Anushka Isaac Referring Unavailable Axel, Julien Referring Unavailable Axel, Julien Consulting Unavailable Axel, Julien Attending Unavailable Farrar, Preet Primary Care Unavailable Farrar, Preet Primary Care Unavailable Marcanthony, Anushka Referring Unavailable Marcanthony, Anushka Admitting Unavailable Reji Cline Consulting Unavailable Marquiseony, Anushka Attending Unavailable Douglas Ron Consulting Unavailable River, Steven Consulting Unavailable Marcanthony, Anushka Consulting Unavailable River, Steven Attending Unavailable MarquiseonyAnushka Attending Unavailable Farrar, Preet Referring Unavailable Farrar, Preet Primary Care Unavailable Farrar, Preet Referring Unavailable Farrar, Preet Primary Care Unavailable Angelina Muñoz NP Attending Unavailable AxelJulien Attending Unavailable Farrar, Preet Referring Unavailable Farrar, Preet Primary Care Unavailable Farrar, Preet Referring Unavailable Farrar, Preet Primary Care Unavailable Anushka Isaac Attending Unavailable Froylananthony, Anushka Attending Unavailable Farrar, Preet Referring Unavailable Farrar, Preet Primary Care Unavailable Farrar, Preet Referring Unavailable Farrar, Preet Primary Care Unavailable Elvis Isaacon Attending Unavailable Axel Julien Attending Unavailable Farrar, Preet Referring Unavailable Farrar, Preet Primary Care Unavailable Axel, Julien Referring Unavailable Axel, Julien Attending Unavailable Farrar, Preet Primary Care Unavailable Farrar, Preet Primary Care Unavailable Berry Waldrop Attending Unavailable MarcanthonyAnushka Attending Unavailable Farrar, Preet Referring Unavailable Farrar, Preet Primary Care Unavailable Farrar, Preet Primary Care Unavailable Berry Waldrop Attending Unavailable Farrar, Preet Primary Care Unavailable Anushka Isaac Referring Unavailable Marquiseony Anushka Consulting Unavailable Anushka Isaac Attending Unavailable Carmen Dallas Attending Unavailable Hermes Block Attending Unavailable Axel, Julien Referring Unavailable Farrar, Preet Primary Care Unavailable Farrar, Preet Primary Care Unavailable Isaac, Jamel Attending Unavailable Marquiseony, Anushka Referring Unavailable Allergies Allergy Classification Reported Allergen(s) Allergy [...] adverse reactions to drug 1 Diarrhea, Itching [facility] Work Phone: (20 sources) metFORMIN; Translations: [metformin] Drug Allergy 0 GI Upset, Itching [facility] (20 sources) predniSONE; Translations: [prednisone] Drug Allergy 3 Itching [facility] Comment on above: itching and hives (12 sources) Salicylic Acid; Translations: [salicylates] Drug Allergy 6 [facility] Work Phone: (20 sources) Sulfonamides (Antibiotic); Translations: [SULFA (SULFONAMIDE ANTIBIOTICS)] Propensity to adverse reactions 6 Rash [facility] Work Phone: (20 sources) Salicylate product Propensity to adverse reactions 6 Hives, GI Upset [facility] Work Phone: (12 sources) Aspirin Drug Allergy 1 mouth swelling [facility] (12 sources) Ibuprofen Drug Allergy 1 mouth swelling [facility] (11 sources) Sulfonamides (Antibiotic) Allergy to substance 3 pt can't remember [facility] (1 source) Gluten Food allergy [facility] (1 source) Sulfonamide; Translations: [sulfa drugs] Drug allergy [facility] (2 sources) Gluten; Translations: [GLUTEN] Propensity to adverse reactions to drug (disorder) 7 [facility] (1 source) Aspirin Drug Allergy 5 [facility] (1 source) Ibuprofen Drug Allergy 5 [facility] (1 source) metFORMIN Drug Allergy 5 [facility] (1 source) predniSONE Drug Allergy 5 [facility] (1 source) Sulfonamides (Antibiotic) Drug allergy (disorder) 5 [facility] Medications Current Medications Medication Drug Class(es) Dates Sig (Normalized) Sig (Original) acetaminophen 500 mg oral tablet (14 sources) Start: 01-11-2021 take 1000 mg by [...] take 1 tablet by mouth once daily Atorvastatin 40 mg tablet Active 40 mg PO daily 90 3 January 26, 2025 12:00am Complies with drug therapy Start: 11-04-2022 End: 03-16-2025 take 1 tablet [...] Blood-Glucose Meter monitoring kit (1 source) Start: End: Blood-Glucose Meter monitoring kit Glucose Meter of Choice - Kit - Dx: Type 2 DM - Controlled E11.9 Check Sugars 4 times Daily Patient states that Acc-check is covered 1 each 04/03/2025 04/04/2025 Active Blood-Glucose Meter,Continuous (DEXCOM G6 CLAM PICKER) misc (6 sources) Start: Blood-Glucose Meter,Continuous (DEXCOM G6 CLAM PICKER) misc Indications: Type 2 diabetes mellitus with hyperosmolarity without coma, with long-term current use of insulin (HCC) , Uncontrolled type 2 diabetes mellitus with hyperglycemia (HCC) Use to check blood sugar at least four (4) times daily. 1 each 04/18/2025 Active Blood-Glucose Sensor (DEXCOM G6 SENSOR) jerome (6 sources) Start: 025 Blood-Glucose Sensor (DEXCOM G6 SENSOR) jerome Indications: Type 2 diabetes mellitus with hyperosmolarity without coma, with long-term current use of insulin (HCC) , Uncontrolled type 2 diabetes mellitus with hyperglycemia (HCC) Apply new sensor every ten (10) days to abdomen. 9 each 3 04/18/2025 Active Blood-Glucose Transmitter (DEXCOM G6 TRANSMITTER) jerome (6 sources) Start: 025 Blood-Glucose Transmitter (DEXCOM G6 TRANSMITTER) jerome Indications: Type 2 diabetes mellitus with hyperosmolarity without coma, with long-term current use of insulin (HCC) , Uncontrolled type 2 diabetes mellitus with hyperglycemia (HCC) Apply new transmitter every 90 days. Clean transmitter with an alcohol swab with each sensor change. 1 each 3 04/18/2025 Active cholecalciferol 47898 unt oral capsule (1 source) Vitamin D Cholecalciferol (VITAMIN D3) 1.25 MG (70452 UT) CAPS Take 50,000 capsules by mouth Twice a Week Thursday and Thursday 0 Active clopidogrel 75 mg oral tablet (20 sources) P2Y12 Platelet Inhibitor Start: End: take 1 tablet by mouth once daily Clopidogrel 75 mg Tablet Active 75 mg PO DAILY November 04, 2022 1:00am BLOOD THINNER Complies with drug therapy Comment on above: Take 75 mg by [...] mg docusate sodium 50 mg / sennosides, longterm 8.6 mg oral tablet (1 source) Start: take 2 tablets by mouth three times daily Sennosides-Docusate Sodium Active 2 TABLET PO THREE TIMES A DAY January 11, 2021 12:00am 0.5 ml dulaglutide 3 mg/ml auto-injector (20 sources) GLP-1 Receptor Agonist Start: End: Dulaglutide (Trulicity) 1.5 mg/0.5 mL pen injector Active 1.5 mg SC FR April 15, 2025 12:00am Complies with drug therapy Start: 12-14-2024 End: 05-25-2025 Dulaglutide (Trulicity) 0.75 mg/0.5 mL pen injector Discontinued 0.75 mg SC EVERY WEEK January 26, 2025 12:00am May 25, 2025 10:02pm dulaglutide (TRULICITY) 3 mg/0.5 mL pen injector (2 sources) Start: 05-31-2025 inject 3 mg by subcutaneous injection every week dulaglutide (TRULICITY) 3 mg/0.5 mL pen injector Indications: Uncontrolled type 2 diabetes mellitus with hyperglycemia (HCC) Inject 3 mg subcutaneously one time a week. 6 mL 3 05/31/2025 Active elderberry fruit 200 mg oral capsule (20 sources) Start: 12-13-2024 take 1 capsule by mouth once daily Elderberry Fruit 200 mg capsule Active 2000 mg PO DAILY December 13, 2024 12:00am Complies with drug therapy Start: 07-01-2023 End: 05-22-2024 take 1 capsule [...] Ergocalciferol (Vitamin D2) 50,000 UNIT capsule Active 69633 U PO MOFR December 18, 2020 12:00am SUPPLEMENT Complies with drug therapy Comment on above: Take 1 capsule by mo ut two times a week. gabapentin 400 mg oral capsule (15 sources) Anti-epileptic Agent Start: 01-11-2021 take 400 [...] 2021 4:33pm Nerve pain For 7 days glucagon (rdna) 1 mg injection (1 source) Antihypoglycemic Agent Start: 12-21-2020 glucago n (rDNA) injection 1 mg 1000 ml glucose 500 mg/ml injection (3 sources) Start: 12-21-2020 glucose (GLUTO SE) 40 % oral gel 15 g Start: [...] 100 unit/mL (3 mL) insulin pen Active 25 U SC DAILY December 12, 2024 10:56am Complies with drug therapy Start: 12-12-2024 Insulin Glargi ne (Lantus Solostar [...] tablet (20 sources) Proton Pump Inhibitor Start: 03-08-20 End: 09-02-20 take 1 tablet by mouth once daily pantoprazole DR (PROTONIX) 40 mg tablet Take 1 tablet by mouth once daily. 30 tablet 5 02/17/2025 Active perflutren lipid microspheres 1.3 mL in NaCl (PF) 0.9% 10 mL injection (DEFINITY) (20 sources) Start: 02-20-20 End: 05-21-20 23 perflutren lipid microspheres 1.3 mL in NaCl (PF) 0.9% 10 mL injection (DEFINITY) polyethylene glycol 3350 85768 mg powder for oral solution (2 sources) Osmotic Laxative Start: 01-12-20 take 17 g by mouth twice daily Polyethylene Glycol 3350 Active 17 GM PO TWICE A DAY January 11, 2021 12:00am Start: 12-21-2020 17 g, Oral, DA NIKI PRN, Constipation, Starting 12/21/20 at 0328 First line therapy for constipation [...] TWICE A DAY December 12, 2024 10:55am Complies with drug therapy Start: 11-02-2022 End: 07-01-2023 take 1 tablet [...] FR December 18, 2020 12:00am Thyroid (Pork) (Wray Thyroid) 30 mg tablet (4 sources) Start: 07-21-2024 Thyroid (Pork) (Wray Thyroid) 30 mg tablet Active 30 mg PO MOWEFR July 21, 2024 12:00am Thyroid (Pork) 120 MG tablet (8 sources) Start: 12-18-2020 take 1 tablet by mouth once daily Thyroid (Pork) 120 MG tablet Active 120 {tbl} PO DAILY December 18, 2020 12:00am THYROID Start: 12-18-2020 End: 03-05-2024 Thyroid (Pork) 120 MG tablet Discontinued 240 mg PO FR December 18, 2020 12:00am March 05, 2024 2:16pm THYROID Start: 12-18-2020 take 1 tablet by vaibhav th once daily Thyroid (Pork) 120 MG tablet Active 120 {tbl} PO DAILY December 18, 2020 12:00am Start: 12-18-2020 End: 03-05-2024 Thyroid (Pork) 120 MG tablet Discontinued 240 mg PO FR December 18, 2020 12:00am March 05, 2024 2:16pm thyroid (longterm) 30 mg oral tablet (20 sources) Start: [...] thyroid) 36 tablet 1 11/02/2024 Active Start: 07-21-2024 Thyroid (Pork) (Wray Thyroid) 30 mg tablet Active 30 mg PO MOWEFR July 21, 2024 12:00am Complies with drug therapy Start: 06-15-2024 End: 11-01-2024 take 1 tablet by mouth once in the morning ARMOUR THYROID 30 mg tablet Indications: Acquired hypothyroidism Take 1 tablet by mouth every Thursday, Thursday, and Thursday. In the morning. (Take this is addition to the 120 mg armor thyroid) 36 tablet 1 06/15/2024 11/01/2024 Discontinued Start: 10-20-2022 take 2 tablets by mo uth every week Wray Thyroid 120 mg oral tablet 32 EA, [...] AM 90 tablet 1 08/15/2024 Active Start: 12-18-2020 Thyroid (Pork) Active 240 MG [...] / oxyCODONE hydrochloride 5 mg oral tablet (5 sources) Opioid Agonist Start: 12-27-2024 End: 01-09-2025 [...] hypertension busPIRone hydrochloride 5 mg oral tablet (19 sources) Start: 05-22-2024 End: 07-07-2024 take 1 [...] Start: 12-21-2020 End: 12-23-2020 lactated ringers infusion carvedilol 6.25 mg oral tablet (20 sources) alpha-Adrenergic Kari, beta-Adrenergic Kari Start: 10-21-2022 End: 11-29-2024 take 1 tablet by mouth twice daily Carvedilol 6.25 mg tablet Discontinued 6.25 mg PO TWICE A DAY November 02, 2022 1:00am July 03, 2023 10:24am HEART RATE End: 07-15-2023 carvedilol (COREG) 25 mg tab let Take 12.5 mg by mouth twice daily with meals. 0 07/15/2023 Discontinued take 1 tablet by vaibhav twice daily at mealtime carvedilol (COREG) 25 mg tablet Take 25 mg by mouth twice daily with meals. 0 Active Comment on above: Take 25 mg by mouth twice daily with meals. Take 12.5 mg by mout h twice daily with meals. Take 6.25 mg by mout h two times a day with meals. ceFAZolin 2000 mg injection (1 source) Cephalosporin Antibacterial Start: 12-22-19 End: 12-25-19 2,000 mg, Intravenous, EVERY 8 HOURS, First dose on Thu12/21/20 at 2300, Until Discontinued Until drain is removed cloNIDine hydrochloride 0.1 mg oral tablet (5 sources) Central alpha-2 Adrenergic Agonist Start: 05-22-20 [...] Discontinued Start: 11-21-2021 take 1 capsule by [facility] once daily cyanocobalamin, vitamin B-12, 3,000 mcg cap Indications: Vitamin B12 deficiency Take 3,000 mcg by mouth once daily. 30 capsule 3 11/21/2021 Active Comment on above: Take 3,000 mcg by [facility] once daily. dexamethasone 1 mg oral tablet [...] OURS, First dose (after last modification) on 12/22/20 at 0200, For 24 hours Start: 12-21-2020 [...] dose. Repeat in 3 days as needed. glimepiride 2 mg oral tablet (20 sources) Sulfonylurea Start: End: take 1 tablet by mouth twice daily Glimepiride 2 mg tablet Discontinued 2 mg PO TWICE A DAY January 26, 2025 2:10pm June 21, 2025 1:06pm Start: 08-10-2024 End: 01-26-2025 take 3 mg [...] th two times a day with meals. 1 ml HYDROmorphone hydrochloride 1 mg/ml cartridge [...] irritation/infection. oxyCODONE hydrochloride 10 mg oral tablet (14 sources) Opioid Agonist Start: 01-12-20 End: 01-19-20 take 1 tablet by mouth three times daily Oxycodone 10 MG tablet Discontinued 10 mg PO THREE TIMES A DAY 7 0 January 11, 2021 January 17, [...] Moderate (4-6), Starting Thu12/21/20 at 0329 Semaglutide (9 sources) Start: 03-16-2023 End: 03-05-2024 Semaglutide (Ozempic) [...] EVERY WEEK March 16, 2023 12:00am Semaglutide (5 sources) Start: 03-05-2024 End: 03-09-2024 Semaglutide (Ozempic) [...] C-Zinc Citrate-Elderberry (Sambucus Elderberry) 30-1.1-25 mg tablet,chewable (5 sources) Start: 05-22-20 End: 12-14-19 Vit C-Zinc [...] pain; Translations: [Right upper quadrant pain] Onset: 7 Resolved: 3 02-16-2007 Episodic Comment on above: resolved. CT otherwi se normal. resolved Acute cerebrovascular disease (20 sources) Cerebrovascular accident; [...] 5 Complication of device; implant or graft (12 sources) Catheter-associated urinary tract infection; Translations: [Infection and inflammatory reaction due to indwelling urethral catheter, initial encounter] 01-11-2021 Episodic Conduction disorders (5 sources) First degree atrioventricular block; Translations: [Atrioventricular [...] 3 09-23-2021 Chronic Diabetes mellitus without complication (8 sources) Hyperglycemia; Translations: [Hyperglycemia, unspecified] Onset: 5 06-26-2023 Episodic Diseases of white blood cells (7 sources) Leukocytosis; Translations: [Elevated white blood cell [...] fracture] Episodic Genitourinary symptoms and ill-defined conditions (13 sources) Retention of urine; Translations: [Retention of urine, unspecified] 01-11-2021 Episodic Heart valve disorders (20 sources) Nonrheumatic aortic (valve) stenosis; Translations: [Aortic valve disorders] Onset: 9 09-06-2019 Chronic Hypertension with complications and secondary hypertension (7 sources) Benign hypertensive heart disease; Translations: [Hypertensive heart disease without heart failure] Onset: 4 08-12-2024 Chronic Inflammatory diseases of female pelvic organs (1 source) Bacterial vaginosis; Translations: [Acute vaginitis] 01-03-2024 Episodic Malaise and fatigue (20 sources) Fatigue; Translations: [Other fatigue] Onset: 7 09-07-2017 Episodic Menopausal disorders (3 sources) Postmenopausal bleeding; Translations: [Postmenopausal bleeding] Onset: 5 06-21-2025 Chronic Mycoses (1 source) Candidiasis of vagina; Translations: [Vaginal yeast infection] 01-27-2024 Episodic Nausea and vomiting (4 sources) Nausea and vomiting; Translations: [Nausea with vomiting, unspecified] 06-26-2023 Episodic Noninfectious gastroenteritis (6 sources) Gastroenteritis; Translations: [Noninfective gastroenteritis and colitis, unspecified] 03-21-2024 Episodic Nutritional deficiencies (20 sources) Vitamin D deficiency; Translations: [Vitamin D deficiency, unspecified] Onset: 2 Chronic Nutritional deficiencies (20 sources) Cobalamin deficiency; Translations: [Deficiency of other specified B group vitamins] Onset: 2 Episodic Occlusion or stenosis of precerebral arteries (12 sources) Left carotid artery occlusion; Translations: [Occlusion and stenosis of left carotid artery] 03-18-2023 Chronic Other aftercare (3 sources) Postoperative visit; Translations: [Encounter for other specified surgical aftercare] 02-06-2025 Episodic Other circulatory disease (12 sources) Disorder of carotid artery; Translations: [Disorder of arteries and arterioles, unspecified] 10-21-2022 Chronic Other circulatory disease (2 sources) Disorder of arteries and arterioles, unspecified; Translations: [Disorder of arteries and arterioles, unspecified] Onset: 4 Chronic Other circulatory disease (11 sources) History of cerebrovascular accident; Translations: [Personal history of transient ischemic attack (TIA), and cerebral infarction without residual deficits] 08-17-2024 Episodic Other connective tissue disease (12 sources) Spasm; Translations: [Other muscle spasm] 12-28-2020 Episodic Other connective tissue disease (12 sources) History of lumbar fusion; Translations: [Arthrodesis status] 11-02-2022 Episodic Other connective tissue disease (12 sources) Neuropathic pain; Translations: [Neuralgia and neuritis, unspecified] 11-02-2022 Episodic Other female genital disorders (13 sources) Endometrial hyperplasia; Translations: [Endometrial hyperplasia, unspecified] 09-13-2024 Chronic Comment on above: not a hormonal ángela date, plan tvhbs, needs cardio and pcp clearance Other female genital disorders (5 sources) 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; Translations: [Benign endometrial hyperplasia] 08-12-2024 Chronic Other female genital disorders (2 sources) Vaginal bleeding; Translations: [Abnormal uterine and vaginal bleeding, unspecified] 05-25-2025 Chronic Other female genital disorders (2 sources) Abnormal uterine and vaginal bleeding, unspecified; Translations: [Abnormal uterine and vaginal bleeding, unspecified] Onset: 5 Chronic Other female genital disorders (2 sources) Endometrial hyperplasia, unspecified; Translations: [Endometrial hyperplasia, unspecified] Onset: 5 Chronic Other female genital disorders (1 source) Pruritus of vagina; Translations: [Other specified noninflammatory disorders of vagina] 01-02-2024 Episodic Other female genital disorders (2 sources) Vaginal vault tear; Translations: [Other specified noninflammatory disorders of vagina] 05-25-2025 Episodic Comment on above: Post intercourse, tr eated with Monsel's paste. Plan follow-up in office in 2 to 3 weeks consider nonhormonal compound cream for vaginal atrophy Other female genital disorders (1 source) Other specified noninflammatory disorders of vagina; Translations: [Other specified noninflammatory disorders of vagina] Onset: 5 Episodic Other gastrointestinal disorders (20 sources) Celiac disease; Translations: [Celiac disease] Onset: 0 09-23-2021 Chronic Other gastrointestinal disorders (12 sources) Irritable bowel syndrome; Translations: [Irritable bowel syndrome without diarrhea] 11-02-2022 Chronic Other gastrointestinal disorders (5 sources) H/O: ulcerative colitis; Translations: [Personal history of other diseases of the digestive system] 05-30-2024 Episodic Other injuries and conditions due to external causes (7 sources) Injury of head; Translations: [Unspecified injury of head, initial encounter] 07-11-2023 Episodic Other nervous system disorders (20 sources) Spinal cord disease; Translations: [Disease of spinal cord, unspecified] Onset: 4 11-02-2022 Chronic Other nervous system disorders (12 sources) Walking disability; Translations: [Difficulty in walking, not elsewhere classified] 12-18-2020 Chronic Other nervous system disorders (9 sources) Polyneuropathy; Translations: [Polyneuropathy, unspecified] 03-18-2023 Chronic [...] Chronic Other nutritional; endocrine; and metabolic disorders (8 sources) Obese class II; Translations: [Obesity, Class II, BMI 35-39.9] Onset: 5 04-18-2025 Chronic Other nutritional; endocrine; and metabolic disorders (2 sources) Abnormal weight gain; Translations: [Abnormal weight gain] 02-09-2025 Episodic Other screening for suspected conditions (not mental disorders or infectious disease) (7 sources) Endometrium thickened; Translations: [Abnormal findings on [...] Onset: 4 11-02-2022 Chronic Residual codes; unclassified (12 sources) History of lumbar discectomy; Translations: [Other specified postprocedural states] 11-02-2022 Episodic Residual codes; unclassified (12 sources) Tobacco user; Translations: [Tobacco use] 11-02-2022 Episodic Residual codes; unclassified (1 source) Difficulty sleeping ; Translations: [Sleep deprivation] 01-27-2024 Episodic Residual codes; unclassified (5 sources) Positive measurement finding; Translations: [Other nonspecific [...] unspecified, uncomplicated] Onset: 0 10-29-2009 Chronic Syncope (7 sources) Near syncope; Translations: [Syncope and collapse] 07-11-2023 Episodic Thyroid disorders (20 sources) Hypothyroidism; Translations: [Hypothyroidism, unspecified] Onset: 6 11-13-2015 Chronic Unclassified (1 source) F/U 3 Month Onset: 5 Past or Other Problems Problem Classification Problem Date Documented Date Episodic/Chronic Cardiac dysrhythmias (20 sources) Palpitations; Translations: [Palpitations] Onset: 02-19-2022 Episodic Other aftercare (2 sources) MCFP (current) use of insulin; Translations: [Type 2 diabetes mellitus with hyperosmolarity without coma, with long-term current use of insulin (HCC)] Onset: 12-09-2023 Episodic Other aftercare (1 source) Encounter for other specified surgical aftercare; Translations: [Encounter for other specified surgical aftercare] Onset: 02-06-2025 Episodic Other circulatory disease (2 sources) Personal [...] mammogram for malignant neoplasm of breast] Onset: 10-31-2024 Episodic Unclassified (1 source) Patient encounter status 01-03-2025 Results Test Name Value Interpretation Reference Range Facility Senior Biostatistician Office Visit Reporton 06-21-2025 Senior Biostatistician Office Visit Report [facility] [address], [address] [place] [address] OFFICE VISIT Date of Service: 06/21/25 MR#: [id number] Acct: [id number] Name: DEONTE BLANCO Rep #: [id number] : 1955 Provider: Dr. Anushka nolan MD Age/Sex: 69/F Location: [facility] [place] Status: Signed Intake Vital Signs 05/25/25 21:39 06/21/25 13:02 Height 5 ft 5 ft Weight: 222 lb 184 lb 3 oz BMI 43.3 35.9 BP 164/104 H 149/74 H Respiration 18 Pulse 100 Temp 98.2 F Pulse Oximetry (%) 97 Intake Visit Reasons: ER follow up heavy bleeding Chief Complaint: ER FU Heavy Bleeding Window Tinter Required: No Is patient in pain?: No Allergies metformin Allergy (Severe, Verified 06/21/25 13:01) Hives prednisone Allergy (Intermediate, Verified 06/21/25 13:01) Itching aspirin Allergy (Verified 06/21/25 13:01) mouth swelling gluten Allergy (Verified 06/21/25 13:01) Abd cramps/diarrhea ibuprofen Allergy (Verified 06/21/25 13:01) mouth swelling Sulfa (Sulfonamide Antibiotics) Allergy (Verified 06/21/25 13:01) pt can't remember Medications ???Medication ???Instructions ???Recorded ???Confirmed ???Type ergocalciferol (vitamin D2) 1,250 50,000 unit PO MOFR SUPPLEMENT 06/21/25 History mcg (50,000 unit) capsule thyroid (pork) 120 mg tablet 120 tablet PO DAILY THYROID 06/21/25 History clopidogrel 75 mg tablet 75 mg PO DAILY BLOOD THINNER #30 0 11/04/22 06/21/25 Rx tabs carvedilol 6.25 mg tablet 6.25 mg PO BID 03/05/24 06/21/25 H istory pantoprazole 40 mg tablet,delayed 40 mg PO DAILY #30 tabs 05/22/24 06/21/25 Rx release thyroid (pork) 30 mg tablet 30 mg PO MOWEFR 07/21/24 06/21/25 History (Wray Thyroid) insulin glargine 100 unit/mL (3 25 unit subcut DAILY 12/12/2405/3025 History mL) subcutaneous pen (Lantus Solostar U-100 Insulin) spironolactone 25 mg tablet 25 mg PO BID 12/12/24 06/21/25 His tory elderberry fruit 200 mg capsule 2,000 mg PO DAILY 12/13/24 5 History atorvastatin 40 mg tablet 40 mg PO QDAY #90 tabs 01/26/25 Rx dulaglutide 1.5 mg/0.5 mL 1.5 mg subcut FR 04/15/25 06/21/25 History subcutaneous pen injector (Trulicity) Is last menstrual period known: No Post menopausal: Yes Patient : No : No PFSH Medical History Cardiology follow-up encounter History [...] Intractable back pain Surgical History History of total vaginal hysterectomy (TVH) History of esophagogastroduodenoscopy (EGD) Hx of colonoscopy History of hysteroscopy History of back surgery ( 2019) Hx of umbilical hernia repair S/P tubal ligation S/P cholecystectomy S/P tonsillectomy and adenoidectomy History of lumbar fusion History of lumbar discectomy Family History Mother Heart disease Alzheimers disease Father Heart disease Hypertension CAD (coronary artery disease) Myocardial infarction Thyroid disorder Diabetes Sister Cancer Social History adopted: No household members: none number of children: 3 sexually active: Yes Smoking Status: Former smoker alcohol intake: never substance use type: marijuana and other details: Medical cannabis, usually daily. seatbelt use: always do you feel safe at home: Yes HPI ER follow up heavy bleeding Details: The patient is a 69-year-old female presenting with concerns of vaginal bleeding and tearing. She experienced a significant bleeding episode requiring an emergency room visit, attributed to vaginal tearing during intercourse. The bleeding has resolved, with only minimal spotting (more content not included)... Normal [facility] CNOVon 05-31-2025 CNOV Office Visit (FAMPWS ) DEONTE BLANCO ([id number]) 1955 F Date Time Provider Department 05/31/25 11:20 AM PREET FARRAR FAMPWS During your visit today, we recorded the following information about you: Temperature Pulse Blood pressure Weight 97.6 degrees 84/minute 136/80 83.5 kg Preet Farrar, 06/05/2025 8:51 AM Signed Patient presents with: F/U 3 Month HPI: Deonte Blanco is a 69 year old female who presents to the office today for review of health conditions. Concerns today: She is going to be seeing Clinical Trial Leader Dr. Johnson at [facility] for opinion regarding her diabetes- she is currently taking Lantus once a day in AM, as well as Trulicity 1.5 mg once a week SQ. She is now using CGM which is helping her determine food triggers- she is continuing to work on adjusting this. Recently had situation of a vaginal bleed after intercourse with her boyfriend. Was seen by LEARNING COORDINATOR for this condition in the ER Ms. Blanco has past history of diabetes. [...] HgA1C was Hemoglobin A1C (%) Date Value 05/23/2025 8.2 03/22/2025 8.0 11/13/2021 6.3 04/16/2021 6.3 Hemoglobin A1C (POCT) (%) Date Value 01/06/2024 6.5 ) Last Ophthalmology exam was within the past 12 months Ms. Blanco reports history of hyperlipidemia. Current therapy includes atorvastatin (Lipitor) 40 mg. Denies side effects of muscle weakness or achiness. Her most recent lipid panels are reviewed. Cholesterol, Total (mg/dL) Date Value 05/23/2025 111 04/16/2021 193 HDL Cholesterol (mg/dL) Date Value 05/23/2025 55 04/16/2021 58 LDL Cholesterol, Calculated (mg/dL) Date Value 05/23/2025 38 04/16/2021 91 Triglyceride (mg/dL) Date Value 05/23/2025 96 04/16/2021 222 Ms. Blanco indicates a history of hypertension and states that she is feeling well and denies any symptoms referable to elevated blood pressure. Specifically denies headache, chest pain, palpitations, dyspnea, and peripheral edema. Patient denies any side effects of her medication(s) and is compliant with their regimen. Last 3 Encounter BP Readings: Date: BP: 05/31/2025 136/80 04/18/2025 120/70 03/22/2025 140/70 She watches her diet for sodium, low [...] FLP TUBE ABDL/VAG APPR UNI/BI Tubal ligation SOCIAL HISTORY[1] FAMILY HISTORY Problem Relation Age of Onset Cervical Cancer Sister Diabetes Father Psychiatry Mother Hypertension Father Heart Mother Heart Father Alzheimer's Disease Mother Breast Cancer Sister Allergies: ALLERGIES Allergen Reactions Asa [Salicylates] Hives, GI Upset As a child Gluten Intolerance Metformin GI Upset, Itching Prednisone Itching Sulfa (Sulfonamide * Rash Current Meds: clopidogrel (PLAVIX) 75 mg tablet Take 1 tablet by mouth once daily. ARMOUR THYROID 30 mg tablet Take 1 tablet by mouth every Thursday, Thursday, and Thursday. In the morning. (Take this is addition to the 120 mg armor thyroid) Blood-Glucose Meter,Continuous (DEXCOM G6 CLAM PICKER) [facility] Use to check blood sugar at least four (4) times daily. Blood-Glucose Transmitter (DEXCOM G6 TRANSMITTER) jerome Apply new transmitter every 90 days. Clean transmitter with an alcohol swab with each sensor change. Blood-Glucose Sensor (DEXCOM G6 SENSOR) jerome Apply new sensor every ten (10) days to abdomen. insulin glargine (LANTUS SOLOSTAR U-100 INSULIN) 100 unit/mL (3 mL) Inject 25 Units subcutaneously every morning. blood sugar diagnostic (BLOOD GLUCOSE TEST) test strip Test blood sugar(s) 4 times daily. Dx: Type 2 DM - Controlled E11.9 Insulin: Yes Aroldo (more content not included)... [facility]INTMWS[facility] DEONTE BLANCO ([id number]) 1955 F Date Time Provider Department 05/31/25 PREET FARRAR INTMWS During your visit today, we recorded the following information about you: Liz Richards LPN 05/31/2025 1:28 PM Signed Electronic PA rec'd and completed for trulicity 3mg. This was approved. Prior authorization approved Payer: [employer] PBM Part D [id number] Note from payer: This medication or product was previously approved on [id number] from 2024-12-14 to 2025-09-27. Please note: This request was submitted electronically. Formulary lowering, tiering exception, cost reduction and/or pre-benefit determination review (including prospective Medicare hospice reviews) requests cannot be requested using this method of submission. Providers contact us at for further assistance. - Prescriber details have been updated to match the prescriber directory. Electronic appeal: Not supported Prior auth initiated by: Preet Farrar, DO View History Medication Being Authorized dulaglutide (TRULICITY) 3 mg/0.5 mL pen injector Inject 3 mg subcutaneously one time a week. Dispense: 6 mL Refills: 3 Start: 05/31/2025 Class: Normal Diagnoses: Uncontrolled type 2 diabetes mellitus with hyperglycemia (HCC) [E11.65] This order has been released to its destination. To be filled at: [facility] [address] [place] [address] [facility] [phone] Allergies As of Date: 05/31/2025 Noted Allergy Reaction ASA (SALICYLATES) 01/05/2006 4 - Hives 8 - GI Upset Comments: As a child GLUTEN 10/17/2016 5 - Intolerance METFORMIN 8 - GI Upset 9 - Itching PREDNISONE 10/02/2012 9 - Itching SULFA (SULFONAMIDE ANTIBIOTICS) 12/29/2005 2 - Rash Date Reviewed: 05/31/2025 Reviewed by: Sahara Mejia LPN - Fully Assessed Reason for Visit: Insurance Authorization [1693] Prescriptions as of 05/31/2025 - dulaglutide (TRULICITY) 3 mg/0.5 mL pen injector Inject 3 mg subcutaneously one time a week. - clopidogrel (PLAVIX) 75 mg tablet Take 1 tablet by mouth once daily. - ARMOUR THYROID 30 mg tablet Take 1 tablet by mouth every Thursday, Thursday, and Thursday. In the morning. (Take this is addition to the 120 mg armor thyroid) - Blood-Glucose Meter,Continuous (DEXCOM G6 CLAM PICKER) [facility] Use to check blood sugar at least four (4) times daily. - Blood-Glucose Transmitter (DEXCOM G6 TRANSMITTER) jerome Apply new transmitter every 90 days. Clean transmitter with an alcohol swab with each sensor change. - Blood-Glucose Sensor (DEXCOM G6 SENSOR) jerome Apply new sensor every ten (10) days to abdomen. - insulin glargine (LANTUS SOLOSTAR U-100 INSULIN) 100 unit/mL (3 mL) Inject 25 Units subcutaneously every morning. - blood sugar diagnostic (BLOOD GLUCOSE TEST) test strip Test blood sugar(s) 4 times daily. Dx: Type 2 DM - Controlled E11.9 Insulin: Yes - Lancets Test blood sugar(s) 4 times daily. Dx: Type 2 DM - Controlled E11.9 Insulin: Yes - ondansetron orally disintegrating (ZOFRAN ODT) 4 [...] by mouth two times a week. - carvedilol (COREG) 6.25 mg tablet Take 1 tablet by mouth two times a day with meals. - blood sugar diagnostic (ONETOUCH VERIO TEST STRIPS) test strip Test blood sugar(s) 4 times daily. Dx: Type 2 DM - Uncontrolled Insulin: Yes - Insulin Peyton, Disposable, (BD ULTRA-FINE MARIA T PEN NEEDLE) [...] 8 times daily. Dx: E11.. Insulin: No - ELDERBERRY FRUIT ORAL Take 1,000 mg by mouth once daily. - Blood Pressure Monitor (BLOOD PRESSURE KIT) 1 Each as directed. Dx: essential hypertension - Lancets lancets Test blood sugar(s) 2 times daily. Dx: Type 2 DM - Uncontrolled Insulin: No Problem List As Of Date 05/31/2025 Noted Resolved Diabetes mellitus type 2, controlled, without c*07/13/2006 12/08/2022 BENIGN HYPERTENSION [I10] 07/13/2006 ADJUSTMENT DISORDER WITH DEPRESSED MOOD [F43.21]07/13/2006 ANXIETY STATE NOS [F41.1] 07/13/2006 Hypothyroidism [E03.9] 07/13/2006 Abdominal pain, right upper quadrant [R10.11] 02/16/2007 12/08/2022 Tobacco Use Disorder [F1 (more content not included)... Normal [facility] Emergency Department Summary on 05-25-2025 Emergency Department Summary [facility] Medical Records Department [address] [place] [id number] Emergency Department Summary 05/25/25 MR#: [id number] Acct: [id number] Name: DEONTE BLANCO Rep #: [id number] : 1955 69 From: Berry Waldrop MD PCP: Dr. Preet Farrar, DO Status:REG ER Location: ED HPI HPI - Female History of Present Illness Chief Complaint: Vag Bleeding Informant: patient Bleeding Issue: Positive for Vaginal bleeding Onset: Today Context: Sudden Onset Timing: Intermittent Current Severity: Similar to period Associated Symptoms Sexually: Positive for Active Narrative Narrative: 69-year-old female history of diabetes, on Plavix due to prior stroke. Patient hysterectomy December 27. She had not had intercourse for months she is not having intercourse again in the last 5 weeks. She has had some intermittent spotting after intercourse. She had intercourse today around 330. Said afterwards she had heavier bleeding with clots. Denies any pelvic pain. Prior similar symptoms: No Recent Illness/Hospitalization: No PFSH PFSH Medical History Cardiology follow-up encounter History [...] Ambulatory dysfunction Intractable back pain Home Medications ???Medication ???Instructions ???Recorded ???Last Taken ???Type ergocalciferol (vitamin D2) 1,250 50,000 unit PO MOFR SUPPLEMENT 12/26/24 08:00 History mcg (50,000 unit) capsule thyroid (pork) 120 mg tablet 120 tablet PO DAILY THYROID 12/27/24 06:00 History clopidogrel 75 mg tablet 75 mg PO DAILY BLOOD THINNER #30 0 11/04/22 12/22/24 Rx tabs carvedilol 6.25 mg tablet 6.25 mg PO BID 03/05/24 12/27/24 0 6:00 History pantoprazole 40 mg tablet,delayed 40 mg PO DAILY #30 tabs 05/22/24 12/27/24 06:00 Rx release thyroid (pork) 30 mg tablet 30 mg PO MOWEFR 07/21/24 12/26/24 08:00 History (Wray Thyroid) insulin glargine 100 unit/mL (3 25 unit subcut DAILY 12/12/2411/28 10:00 History mL) subcutaneous pen (Lantus Solostar U-100 Insulin) spironolactone 25 mg tablet 25 mg PO BID 12/12/24 12/26/24 20: 00 History elderberry fruit 200 mg capsule 2,000 mg PO DAILY 12/13/24 5 08:00 History atorvastatin 40 mg tablet 40 mg PO QDAY #90 tabs 01/26/25 Un known Rx glimepiride 2 mg tablet 2 mg PO BID 01/26/25 Unknown Histo ry dulaglutide 1.5 mg/0.5 mL 1.5 mg subcut FR 04/15/25 Unknown History subcutaneous pen injector (Trulicity) Allergy/AdvReac Type Severity Reaction Status Date / Time metformin Allergy Severe Hives Verified 05/25/25 21:43 prednisone Allergy Intermediate Itching Verified 05/25/25 21:43 aspirin Allergy mouth Verified 05/25/25 21:43 swelling gluten Allergy Abd Verified 05/25/25 21:43 cramps/diarrhea ibuprofen Allergy mouth Verified 05/25/25 21:43 swelling Sulfa (Sulfonamide Allergy pt can't Verified 05/25/25 21:43 Antibiotics) remember Family History Mother Heart disease Alzheimers disease Father Heart disease Hypertension CAD (coronary artery disease) Myocardial infarction Thyroid disorder Diabetes Sister Cancer Surgical History History of total vaginal hysterectomy (TVH) History of esophagogastroduodenoscopy (EGD) Hx of colonoscopy History of hysteroscopy History of back surgery ( 2019) Hx of umbilical hernia repair S/P tubal ligation S/P cholecystectomy S/P tonsillectomy and adenoidectomy History of lumbar fusion History of lumbar discectomy Social History adopted: No household members: none number of children: 3 sexually active: Yes Smoking Status: Former smoker alcohol intake (more content not included)... Normal [facility] HbA1c (Bld)on 05-23-2025 Average glucose Estimated from glycated hemoglobin (Bld) [Mass/Vol] 189 mg/dL Normal [facility] Comment on above: Order Comment: Abimbola diaz Type: BLOOD SPECIMENOrdering Facility: [facility] Address: [address] [place] [address] Result Comment: eAG: (Estimated average glucose) is a calculated value from HgbA1c and is sales representative jewelry of the average blood glucose level in the last 2-3 month period. Performed By: #### 5 5454-3 ####[facility] LABCLIA [id number] [place] [address] [place] HbA1c (Bld) [Mass fraction] 8.2 % High 4.3-5.6 [facility] Comment on above: Order Comment: Abimbola diaz Type: BLOOD SPECIMENOrdering Facility: [facility] Address: [address] [place] [address] Result Comment: Amer ican Diabetes Association guidelines indicate that patients with HgbA1c in the range 5.7-6.4% are at increased risk for development of diabetes, and intervention by lifestyle modification may be beneficial. HgbA1c greater or equal to 6.5% is considered diagnostic of diabetes. Performed By: #### 5 5454-3 ####[facility] LABCLIA [id number] [place] [id number] [place] Lipid 1996 panelon Cholesterol [Mass/Vol] 111 mg/dL Normal <200 [facility] Comment on above: Order Comment: Abimbola diaz Type: BLOOD SPECIMENOrdering Facility: [facility] Address: [address] [place] [address] Result Comment: <200 mg/dL, Desirable 200-239 mg/dL, Borderline high >239 mg/dL, High Performed By: #### 3 016-3, 51488-9 ####[facility] LABCLIA [id number] ED [facility] [place] [id number] [place] Cholesterol in HDL [Mass/Vol] 55 mg/dL Normal >39 [facility] Comment on above: Order Comment: Norylillian diaz Type: BLOOD SPECIMENOrdering Facility: [facility] Address: [address] [place] [address] Result Comment: 40-5 9 mg/dL, Acceptable >59 mg/dL, High: Negative risk factor for coronary heart disease <40 mg/dL, Low: Positive risk factor for coronary heart disease Performed By: #### 3 016-3, 49663-6 ####[facility] LABCLIA [id number] [place] [address] [place] Cholesterol in LDL [Mass/Vol] 38 mg/dL Normal <100 [facility] Comment on above: Order Comment: Norylillian diaz Type: BLOOD SPECIMENOrdering Facility: [facility] Address: [address] [place] [address] Result Comment: <100 mg/dL, Optimal 100-129 mg/dL, Near optimal/above optimal 130-159 mg/dL, Borderline high 160-189 mg/dL, High >189 mg/dL, Very high Secondary prevention optimal LDL Cholesterol levels are recommended to be <70 mg/dL LDL cholesterol is calculated using the Givens-NIH equation. Performed By: #### 3 016-3, 41657-0 ####[facility] LABCLIA [id number] [address] [place] Cholesterol in LDL/Cholesterol in HDL [Mass ratio] 0.69 {ratio} Normal <2.54 [facility] Comment on above: Order Comment: Abimbola diaz Type: BLOOD SPECIMENOrdering Facility: [facility] Address: [address] [place] [address] Result Comment: Refe jordance: 1. National Cholesterol Education Program ATP III Guideline At-A-Glance Quick Desk Reference: National Heart, Lung, and Blood [place]. National Institutes of Health. 2001: NIH Publication No. 01-3305. 2. An International Atherosclerosis Society position paper: global recommendations for the management of dyslipidemia: executive summary, Atherosclerosis. 2014: 232(2):410-413. Performed By: #### 3 016-3, 11427-9 ####[facility] LABCLIA [id number] [address] [place] [address] [place] Cholesterol in VLDL [Mass/Vol] 13 mg/dL Normal <30 [facility] Comment on above: Order Comment: Speci men Type: BLOOD SPECIMENOrdering Facility: [facility] Address: [address] [place] [address] Performed By: #### 3 016-3, 02582-7 ####[facility] LABCLIA [id number] [address], [facility] [place] Cholesterol non HDL [Mass/Vol] 56 mg/dL Normal <130 [facility] Comment on above: Order Comment: Speci men Type: BLOOD SPECIMENOrdering Facility: [facility] Address: [address] [place] [address] Result Comment: <130 mg/dL, Optimal 130-159 mg/dL, Near optimal/above optimal 160-189 mg/dL, Borderline high 190-219 mg/dL, High >219 mg/dL, Very high Secondary prevention optimal non HDL Cholesterol levels are recommended to be <100 mg/dL Performed By: #### 3 016-3, 32261-4 ####[facility] LABIA [id number] [place] [address] [place] Cholesterol.total/Chol esterol in HDL [Mass ratio] 2.02 {ratio} Normal <5.10 [facility] Comment on above: Order Comment: Speci men Type: BLOOD SPECIMENOrdering Facility: [facility] Address: [address] [place] [address] Performed By: #### 3 016-3, 63954-5 ####[facility] LABCLIA [id number] [place] [id number] [place] FASTING TIME 13 hrs Normal [facility] Comment on above: Order Comment: Speci men Type: BLOOD SPECIMENOrdering Facility: [facility] Address: [address] [place] [address] Performed By: #### 3 016-3, 57356-7 ####[facility] LABIA [id number] [place] [id number] [place] Triglyceride [Mass/Vol] 96 mg/dL Normal <150 [facility] Comment on above: Order Comment: Speci men Type: BLOOD SPECIMENOrdering Facility: [facility] Address: [address] [place] [address] Result Comment: <150 mg/dL, Normal 150-199 mg/dL, Borderline high 200-499 mg/dL, High >499 mg/dL, Very high Performed By: #### 3 016-3, 11051-6 ####[facility] LABIA [id number] [place] [address] [place] TSH SerPl-aCncon 05-23-2025 TSH Qn 0.033 m[IU]/L Low 0.270-4.20 0 [facility] Comment on above: Order Comment: Speci men Type: BLOOD SPECIMENOrdering Facility: [facility] Address: [address] [place] [address] Performed By: #### 3 016-3, 65034-5 ####[facility] [id number] [place] [address] [place] Bacteria Ur Culton 5 Bacteria identified Cx Nom (U) ORGANISM ID: 1 10,000 -<50,000 CFU/ml Normal urogenital jostin Normal [facility] Comment on above: Performed By: #### 6 30-4 ####[facility] LABIA [id number] [place] [id number] [place] CBC W Auto Differential pane l (Bld)on 04-28-2025 Basophils (Bld) [#/Vol] 0.06 10*3/uL Normal <0.11 [facility] Comment on above: Order Comment: Speci men Type: BLOOD SPECIMENOrdering Facility: [facility] Address: [address] [place] [address] Performed By: #### 5 7021-8 ####[facility] LABCLIA [id number] [facility] [address] [place] [address] [place] Basophils/100 WBC (Bld) 0.5 % Normal [facility] Comment on above: Order Comment: Speci men Type: BLOOD SPECIMENOrdering Facility: [facility] Address: [address] [place] [address] Performed By: #### 5 7021-8 ####[facility] LABCLIA [id number] [address], [facility]95 [place] Differential cell count method Nom (Bld) Auto Normal [facility] Comment on above: Order Comment: Speci men Type: BLOOD SPECIMENOrdering Facility: [facility] Address: [address] [place] [address] Performed By: #### 5 7021-8 ####[facility] LABCLIA [id number] [address], [place] [address] [place] Eosinophils (Bld) [#/Vol] 0.24 10*3/uL Normal <0.46 [facility] Comment on above: Order Comment: Speci men Type: BLOOD SPECIMENOrdering Facility: [facility] Address: [address] [place] [address] Performed By: #### 5 7021-8 ####[facility] LABCLIA [id number] [address], [place] [address] [place] Eosinophils/100 WBC (Bld) 1.9 % Normal [facility] Comment on above: Order Comment: Speci men Type: BLOOD SPECIMENOrdering Facility: [facility] Address: [address] [place] [address] Performed By: #### 5 7021-8 ####[facility] LABCLIA [id number] [address] [place] [address] [place] Erythrocyte distribution width (RBC) [Ratio] 13.1 % Normal 11.5-15.0 [facility] Comment on above: Order Comment: Speci men Type: BLOOD SPECIMENOrdering Facility: [facility] Address: [address] [place] [address] Performed By: #### 5 7021-8 ####[facility] LABCLIA [id number] [place] [address] [place] Hematocrit (Bld) [Volume fraction] 41.5 % Normal 36.0-46.0 [facility] Comment on above: Order Comment: Speci men Type: BLOOD SPECIMENOrdering Facility: [facility] Address: [address] [place] [address] Performed By: #### 5 7021-8 ####[facility] LABCLIA [id number] [place] [address] [place] Hemoglobin (Bld) [Mass/Vol] 14.1 g/dL Normal 11.5-15.5 [facility] Comment on above: Order Comment: Speci men Type: BLOOD SPECIMENOrdering Facility: [facility] Address: [address] [place] [address] Performed By: #### 5 7021-8 ####[facility] LABCLIA [id number] [place] [address] [place] Immature granulocytes (Bld) [#/Vol] 0.09 10*3/uL Normal <0.10 [facility] Comment on above: Order Comment: Speci men Type: BLOOD SPECIMENOrdering Facility: [facility] Address: [address] [place] [address] Performed By: #### 5 7021-8 ####[facility] LABCLIA [id number] [place] [address] [place] Immature granulocytes/100 WBC (Bld) 0.7 % Normal [facility] Comment on above: Order Comment: Speci men Type: BLOOD SPECIMENOrdering Facility: [facility] Address: [address] [place] [address] Performed By: #### 5 7021-8 ####[facility] LABCLIA [id number] [place] [address] [place] Lymphocytes (Bld) [#/Vol] 2.82 10*3/uL Normal 1.00-4.00 [facility] Comment on above: Order Comment: Speci men Type: BLOOD SPECIMENOrdering Facility: [facility] Address: [address] [place] [address] Performed By: #### 5 7021-8 ####[facility] LABCLIA [id number] [place] [address] [place] Lymphocytes/100 WBC (Bld) 21.8 % Normal [facility] Comment on above: Order Comment: Speci men Type: BLOOD SPECIMENOrdering Facility: [facility] Address: [address] [place] [address] Performed By: #### 5 7021-8 ####[facility] LABIA [id number] [place] [address] [place] MCH (RBC) [Entitic mass] 30.1 pg Normal 26.0-34.0 [facility] Comment on above: Order Comment: Speci men Type: BLOOD SPECIMENOrdering Facility: [facility] Address: [address] [place] [address] Performed By: #### 5 7021-8 ####[facility] LABIA [id number] [place] [address] [place] MCHC (RBC) [Mass/Vol] 34.0 g/dL Normal 30.5-36.0 [facility] Comment on above: Order Comment: Speci men Type: BLOOD SPECIMENOrdering Facility: [facility] Address: [address] [place] [address] Performed By: #### 5 7021-8 ####[facility] LABIA [id number] [place] [address] [place] MCV (RBC) [Entitic vol] 88.5 fL Normal 80.0-100.0 [facility] Comment on above: Order Comment: Speci men Type: BLOOD SPECIMENOrdering Facility: [facility] Address: [address] [place] [address] Performed By: #### 5 7021-8 ####[facility] LABCLIA [id number] [address] [address] [place] Monocytes (Bld) [#/Vol] 0.89 10*3/uL High <0.87 [facility] Comment on above: Order Comment: Speci men Type: BLOOD SPECIMENOrdering Facility: [facility] Address: [address] [place] [address] Performed By: #### 5 7021-8 ####[facility] LABCLIA [id number] [place] [address] [place] Monocytes/100 WBC (Bld) 6.9 % Normal [facility] Comment on above: Order Comment: Speci men Type: BLOOD SPECIMENOrdering Facility: [facility] Address: [address] [place] [address] Performed By: #### 5 7021-8 ####[facility] LABCLIA [id number] [place] [address] [place] Neutrophils (Bld) [#/Vol] 8.83 10*3/uL High 1.45-7.50 [facility] Comment on above: Order Comment: Speci men Type: BLOOD SPECIMENOrdering Facility: [facility] Address: [address] [place] [address] Performed By: #### 5 7021-8 ####[facility] LABCLIA [id number] [place] [address] [place] Neutrophils/100 WBC (Bld) 68.2 % Normal [facility] Comment on above: Order Comment: Speci men Type: BLOOD SPECIMENOrdering Facility: [facility] Address: [address] [place] [address] Performed By: #### 5 7021-8 ####[facility] LABCLIA [id number] [facility] [address] [place] [address] [place] Nucleated RBC (Bld) [#/Vol] 10*3/uL Normal <0.01 [facility] Comment on above: Order Comment: Speci men Type: BLOOD SPECIMENOrdering Facility: [facility] Address: [address] [place] [address] Performed By: #### 5 7021-8 ####[facility] LABCLIA [id number] [facility] [address], [facility]95 [place] Nucleated RBC/100 WBC (Bld) [Ratio] 0.0 /100 WBC Normal [facility] Comment on above: Order Comment: Speci men Type: BLOOD SPECIMENOrdering Facility: [facility] Address: [address] [place] [address] Performed By: #### 5 7021-8 ####[facility] LABIA [id number] [address], [place] [address] [place] Platelet mean volume (Bld) [Entitic vol] 9.8 fL Normal 9.0-12.7 [facility] Comment on above: Order Comment: Speci men Type: BLOOD SPECIMENOrdering Facility: [facility] Address: [address] [place] [address] Performed By: #### 5 7021-8 ####[facility] LABIA [id number] [address], [place] [address] [place] Platelets (Bld) [#/Vol] 407 10*3/uL High 150-400 [facility] Comment on above: Order Comment: Speci men Type: BLOOD SPECIMENOrdering Facility: [facility] Address: [address] [place] [address] Performed By: #### 5 7021-8 ####[facility] LABCLIA [id number] [facility] [address] [place] [address] [place] RBC (Bld) [#/Vol] 4.69 10*6/uL Normal 3.90-5.20 [facility] Comment on above: Order Comment: Speci men Type: BLOOD SPECIMENOrdering Facility: [facility] Address: [address] [place] [address] Performed By: #### 5 7021-8 ####[facility] LABCLIA [id number] [place] [address] [place] WBC (Bld) [#/Vol] 12.93 10*3/uL High 3.70-11.00 [facility] Comment on above: Order Comment: Speci men Type: BLOOD SPECIMENOrdering Facility: [facility] Address: [address] [place] [address] Performed By: #### 5 7021-8 ####[facility] LABCLIA [id number] [place] [address] [place] Urinalysis complete panel (U )on 04-28-2025 Bacteria LM.HPF (Urine sed) [#/Area] Negative Normal Negative [facility] Comment on above: Order Comment: Speci men Type: URINE SPECIMENOrdering Facility: [facility] Address: [address] [place] [address] Performed By: #### 2 4356-8 ####[facility] LABIA [id number] [place] [address] [place] Bilirubin Ql (U) Negative Normal Negative [facility] Comment on above: Order Comment: Speci men Type: URINE SPECIMENOrdering Facility: [facility] Address: [address] [place] [address] Performed By: #### 2 4356-8 ####[facility] LABCLIA [id number] [place] [address] [place] Clarity (Unsp spec) Clear Normal Clear [facility] Comment on above: Order Comment: Speci men Type: URINE SPECIMENOrdering Facility: [facility] Address: [address] [place], [place] [address] Performed By: #### 2 4356-8 ####[facility] LABCLIA [id number] [place] [address] [place] Color (U) Yellow Normal Yellow [facility] Comment on above: Order Comment: Speci men Type: URINE SPECIMENOrdering Facility: [facility] Address: [address] [place] [address] Performed By: #### 2 4356-8 ####[facility] LABCLIA [id number] [address], [place] [address] [place] Epithelial cells LM.HPF (Urine sed) [#/Area] Few Normal [facility] Comment on above: Order Comment: Speci men Type: URINE SPECIMENOrdering Facility: [facility] Address: [address] [place] [address] Performed By: #### 2 4356-8 ####[facility] LABIA [id number] [address] [place] Glucose Test strip (U) [Mass/Vol] 1+ Abnormal Negative [facility] Comment on above: Order Comment: Speci men Type: URINE SPECIMENOrdering Facility: [facility] Address: [address] [place] [address] Performed By: #### 2 4356-8 ####[facility] LABCLIA [id number] [place] [address] [place] Hemoglobin Ql (U) Negative Normal Negative [facility] Comment on above: Order Comment: Speci men Type: URINE SPECIMENOrdering Facility: [facility] Address: [address] [place] [address] Performed By: #### 2 4356-8 ####[facility] LABCLIA [id number] [address], [facility]95 [place] Hyaline casts (Urine sed) [#/Area] 0 /[LPF] Normal 0 /LPF [facility] Comment on above: Order Comment: Speci men Type: URINE SPECIMENOrdering Facility: [facility] Address: [address] [place] [address] Performed By: #### 2 4356-8 ####[facility] LABCLIA [id number] [address] [place] [address] [place] Ketones Ql (U) Negative Normal Negative [facility] Comment on above: Order Comment: Speci men Type: URINE SPECIMENOrdering Facility: [facility] Address: [address] [place] [address] Performed By: #### 2 4356-8 ####[facility] LABCLIA [id number] [place] [address] [place] Leukocyte esterase Test strip Ql (U) Negative Normal Negative [facility] Comment on above: Order Comment: Speci men Type: URINE SPECIMENOrdering Facility: [facility] Address: [address] [place] [address] Performed By: #### 2 4356-8 ####[facility] LABCLIA [id number] [address], [facility]95 [place] Nitrite Ql (U) Negative Normal Negative [facility] Comment on above: Order Comment: Speci men Type: URINE SPECIMENOrdering Facility: [facility] Address: [address] [place] [address] Performed By: #### 2 4356-8 ####[facility] LABCLIA [id number] [place] [address] [place] pH (U) 5.5 [pH] Normal 5.0-8.0 [facility] Comment on above: Order Comment: Speci men Type: URINE SPECIMENOrdering Facility: [facility] Address: [address] [place] [address] Performed By: #### 2 4356-8 ####[facility] LABCLIA [id number] [address], [facility]95 [place] Protein (U) [Mass/Vol] Negative Normal Negative Cl [facility] Comment on above: Order Comment: Speci men Type: URINE SPECIMENOrdering Facility: [facility] Address: [address] [place] [address] Performed By: #### 2 4356-8 ####[facility] LABIA [id number] [place] [address] [place] RBC LM.HPF (Urine sed) [#/Area] 0-2 /HPF Normal 0-2 /HPF [facility] Comment on above: Order Comment: Speci men Type: URINE SPECIMENOrdering Facility: [facility] Address: [address] [place] [address] Performed By: #### 2 4356-8 ####[facility] [id number] [address] [place] Specific gravity (U) [Rel density] 1.017 Normal 1.005-1.03 0 [facility] Comment on above: Order Comment: Speci men Type: URINE SPECIMENOrdering Facility: [facility] Address: [address] [place] [address] Performed By: #### 2 4356-8 ####[facility] [id number] [address] [place] Urobilinogen Ql (U) 0.2 EU/dL Normal 0.2-1.0 EU/dL [facility] Comment on above: Order Comment: Speci men Type: URINE SPECIMENOrdering Facility: [facility] Address: [address] [place] [address] Performed By: #### 2 4356-8 ####[facility] LABIA [id number] [place] [address] [place] WBC LM.HPF (Urine sed) [#/Area] 0-5 /HPF Normal 0-5 /HPF [facility] Comment on above: Order Comment: Speci men Type: URINE SPECIMENOrdering Facility: [facility] Address: [address] [place] [address] Performed By: #### 2 4356-8 ####[facility] LABIA [id number] [place] [address] [place] ALBUMIN/CREATININE RATIO, UR INEon 04-18-2025 Albumin DL <= 20 mg/L (U) [Mass/Vol] mg/L mg/L [facility] Albumin/Creatinine (U) [Mass ratio] mg/g NINF - 30 mg/g [facility] Comment on above: Adult Male and Femal [...] [Mass/Vol] 122.8 mg/dL 20.0 - 300.0 mg/dL [facility] Albumin DL <= 20 mg/L (U) [Mass/Vol] mg/dL Normal [facility] Comment on above: Order Comment: Speci men Type: URINE SPECIMENOrdering Facility: [facility] Address: [address] [place] [address] Performed By: #### U ACR ####[facility] LABIA [id number] [address] [place] Albumin/Creatinine (U) [Mass ratio] <10 Normal <30 [facility] Comment on above: Order Comment: Speci men Type: URINE SPECIMENOrdering Facility: [facility] Address: [address] [place] [address] Result Comment: Adul t Male and Female Nephrotic Criteria: <30 mg/g is considered normal to mildly increased 30-300 mg/g is considered moderately increased >300 mg/g is considered severely increased KDIGO. (2013). KDIGO 2012 Clinical Practice Guideline for the Evaluation and Management of Chronic Kidney Disease. Official Journal of the International Society of Nephrology, 3(1), 1-150. Performed By: #### U ACR ####[facility] LABCLIA [id number] [address] [place] [facility] Creatinine (U) [Mass/Vol] 122.8 mg/dL Normal 20.0-300.0 [facility] Comment on above: Order Comment: Speci men Type: URINE SPECIMENOrdering Facility: [facility] Address: [address] [place] [address] Performed By: #### U ACR ####[facility] LABCLIA [id number] [place] [address] [place] CBC W Auto Differential pane l (Bld)on 04-18-2025 Basophils (Bld) [#/Vol] 0.08 10*3/uL [facility] Basophils/100 WBC (Bld) 0.6 % [facility] Differential cell count method Nom (Bld) Auto [facility] Eosinophils (Bld) [#/Vol] 0.14 10*3/uL [facility] Eosinophils/100 WBC (Bld) 1 % [facility] Erythrocyte distribution width (RBC) [Ratio] 12.8 % 11.5 - 15.0 % [facility] Hematocrit (Bld) [Volume fraction] 42.2 % 36.0 - 46.0 % [facility] Hemoglobin (Bld) [Mass/Vol] 14.3 g/dL 11.5 - 15.5 g/dL [facility] Immature granulocytes (Bld) [#/Vol] 0.1 10*3/uL High [facility] Immature granulocytes/100 WBC (Bld) 0.7 % [facility] Interpretation and review of laboratory results Abnormal [facility] Lymphocytes (Bld) [#/Vol] 2.02 10*3/uL [facility] Lymphocytes/100 WBC (Bld) 14.3 % [facility] MCH (RBC) [Entitic mass] 29.4 pg 26.0 - 34.0 pg [facility] MCHC (RBC) [Mass/Vol] 33.9 g/dL 30.5 - 36.0 g/dL [facility] MCV (RBC) [Entitic vol] 86.8 fL 80.0 - 100.0 fL [facility] Monocytes (Bld) [#/Vol] 0.9 10*3/uL High NINF [facility] Monocytes/100 WBC (Bld) 6.4 % [facility] Neutrophils (Bld) [#/Vol] 10.93 10*3/uL High [facility] Neutrophils/100 WBC (Bld) 77 % [facility] Nucleated RBC (Bld) [#/Vol] NINF [facility] Nucleated RBC/100 WBC (Bld) [Ratio] 0 % /100 WBC [facility] Platelet mean volume (Bld) [Entitic vol] 9.8 fL 9.0 - 12.7 fL [facility] Platelets (Bld) [#/Vol] 392 10*3/uL [facility] RBC (Bld) [#/Vol] 4.86 10*6/uL 3.90 - 5.20 m/uL [facility] WBC (Bld) [#/Vol] 14.17 10*3/uL High [facility] Basophils (Bld) [#/Vol] 0.08 10*3/uL Normal <0.11 [facility] Comment on above: Order Comment: Speci men Type: BLOOD SPECIMENOrdering Facility: [facility] Address: [address] [place] [address] Performed By: #### 5 7021-8 ####[facility] LABIA [id number] [place] [address] [place] Basophils/100 WBC (Bld) 0.6 % Normal [facility] Comment on above: Order Comment: Speci men Type: BLOOD SPECIMENOrdering Facility: [facility] Address: [address] [place] [address] Performed By: #### 5 7021-8 ####[facility] LABIA [id number] [place] [address] [place] Differential cell count method Nom (Bld) Auto Normal [facility] Comment on above: Order Comment: Speci men Type: BLOOD SPECIMENOrdering Facility: [facility] Address: [address] [place] [address] Performed By: #### 5 7021-8 ####[facility] LABCLIA [id number] [address] [place] [address] [place] Eosinophils (Bld) [#/Vol] 0.14 10*3/uL Normal <0.46 [facility] Comment on above: Order Comment: Speci men Type: BLOOD SPECIMENOrdering Facility: [facility] Address: [address] [place] [address] Performed By: #### 5 7021-8 ####[facility] LABCLIA [id number] [address], [place] [address] [place] Eosinophils/100 WBC (Bld) 1.0 % Normal [facility] Comment on above: Order Comment: Speci men Type: BLOOD SPECIMENOrdering Facility: [facility] Address: [address] [place] [address] Performed By: #### 5 7021-8 ####[facility] LABCLIA [id number] [address], [place] [address] [place] Erythrocyte distribution width (RBC) [Ratio] 12.8 % Normal 11.5-15.0 [facility] Comment on above: Order Comment: Speci men Type: BLOOD SPECIMENOrdering Facility: [facility] Address: [address] [place] [address] Performed By: #### 5 7021-8 ####[facility] LABCLIA [id number] [address], [place] [address] [place] Hematocrit (Bld) [Volume fraction] 42.2 % Normal 36.0-46.0 [facility] Comment on above: Order Comment: Speci men Type: BLOOD SPECIMENOrdering Facility: [facility] Address: [address] [place] [address] Performed By: #### 5 7021-8 ####[facility] LABCLIA [id number] [address], [facility]95 [place] Hemoglobin (Bld) [Mass/Vol] 14.3 g/dL Normal 11.5-15.5 [facility] Comment on above: Order Comment: Speci men Type: BLOOD SPECIMENOrdering Facility: [facility] Address: [address] [place] [address] Performed By: #### 5 7021-8 ####[facility] LABCLIA [id number] [place] [address] [place] Immature granulocytes (Bld) [#/Vol] 0.10 10*3/uL High <0.10 [facility] Comment on above: Order Comment: Speci men Type: BLOOD SPECIMENOrdering Facility: [facility] Address: [address] [place] [address] Performed By: #### 5 7021-8 ####[facility] LABCLIA [id number] [place] [address] [place] Immature granulocytes/100 WBC (Bld) 0.7 % Normal [facility] Comment on above: Order Comment: Speci men Type: BLOOD SPECIMENOrdering Facility: [facility] Address: [address] [place] [address] Performed By: #### 5 7021-8 ####[facility] LABCLIA [id number] [place] [address] [place] Lymphocytes (Bld) [#/Vol] 2.02 10*3/uL Normal 1.00-4.00 [facility] Comment on above: Order Comment: Speci men Type: BLOOD SPECIMENOrdering Facility: [facility] Address: [address] [place] [address] Performed By: #### 5 7021-8 ####[facility] LABCLIA [id number] [place] [address] [place] Lymphocytes/100 WBC (Bld) 14.3 % Normal [facility] Comment on above: Order Comment: Speci men Type: BLOOD SPECIMENOrdering Facility: [facility] Address: [address] [place] [address] Performed By: #### 5 7021-8 ####[facility] LABIA [id number] [place] [address] [place] MCH (RBC) [Entitic mass] 29.4 pg Normal 26.0-34.0 [facility] Comment on above: Order Comment: Speci men Type: BLOOD SPECIMENOrdering Facility: [facility] Address: [address] [place] [address] Performed By: #### 5 7021-8 ####[facility] LABIA [id number] [place] [address] [place] MCHC (RBC) [Mass/Vol] 33.9 g/dL Normal 30.5-36.0 [facility] Comment on above: Order Comment: Speci men Type: BLOOD SPECIMENOrdering Facility: [facility] Address: [address] [place] [address] Performed By: #### 5 7021-8 ####[facility] [id number] [place] [address] [place] MCV (RBC) [Entitic vol] 86.8 fL Normal 80.0-100.0 [facility] Comment on above: Order Comment: Speci men Type: BLOOD SPECIMENOrdering Facility: [facility] Address: [address] [place] [address] Performed By: #### 5 7021-8 ####[facility] LABIA [id number] [place] [address] [place] Monocytes (Bld) [#/Vol] 0.90 10*3/uL High <0.87 [facility] Comment on above: Order Comment: Speci men Type: BLOOD SPECIMENOrdering Facility: [facility] Address: [address] [place] [address] Performed By: #### 5 7021-8 ####[facility] [id number] [address] [id number], [place] [address] [place] Monocytes/100 WBC (Bld) 6.4 % Normal [facility] Comment on above: Order Comment: Speci men Type: BLOOD SPECIMENOrdering Facility: [facility] Address: [address] [place] [address] Performed By: #### 5 7021-8 ####[facility] LABCLIA [id number] [place] [address] [place] Neutrophils (Bld) [#/Vol] 10.93 10*3/uL High 1.45-7.50 [facility] Comment on above: Order Comment: Speci men Type: BLOOD SPECIMENOrdering Facility: [facility] Address: [address] [place] [address] Performed By: #### 5 7021-8 ####[facility] LABCL[facility] [id number] [place] [address] [place] Neutrophils/100 WBC (Bld) 77.0 % Normal [facility] Comment on above: Order Comment: Speci men Type: BLOOD SPECIMENOrdering Facility: [facility] Address: [address] [place] [address] Performed By: #### 5 7021-8 ####[facility] LABCLIA [id number] [place] [address] [place] Nucleated RBC (Bld) [#/Vol] 10*3/uL Normal <0.01 [facility] Comment on above: Order Comment: Speci men Type: BLOOD SPECIMENOrdering Facility: [facility] Address: [address] [place] [address] Performed By: #### 5 7021-8 ####[facility] LABCLIA [id number] [place] [address] [place] Nucleated RBC/100 WBC (Bld) [Ratio] 0.0 /100 WBC Normal [facility] Comment on above: Order Comment: Speci men Type: BLOOD SPECIMENOrdering Facility: [facility] Address: [address] [place] [address] Performed By: #### 5 7021-8 ####[facility] LABCLIA [id number] [place] [id number] [place] Platelet mean volume (Bld) [Entitic vol] 9.8 fL Normal 9.0-12.7 [facility] Comment on above: Order Comment: Speci men Type: BLOOD SPECIMENOrdering Facility: [facility] Address: [address] [place] [address] Performed By: #### 5 7021-8 ####[facility] LABIA [id number] [place] [address] [place] Platelets (Bld) [#/Vol] 392 10*3/uL Normal 150-400 [facility] Comment on above: Order Comment: Speci men Type: BLOOD SPECIMENOrdering Facility: [facility] Address: [address] [place] [address] Performed By: #### 5 7021-8 ####[facility] LABCLIA [id number] [place] [address] [place] RBC (Bld) [#/Vol] 4.86 10*6/uL Normal 3.90-5.20 [facility] Comment on above: Order Comment: Speci men Type: BLOOD SPECIMENOrdering Facility: [facility] Address: [address] [place] [address] Performed By: #### 5 7021-8 ####[facility] LABCLIA [id number] [place] [address] [place] WBC (Bld) [#/Vol] 14.17 10*3/uL High 3.70-11.00 [facility] Comment on above: Order Comment: Speci men Type: BLOOD SPECIMENOrdering Facility: [facility] Address: [address] [place] [address] Performed By: #### 5 7021-8 ####[facility] LABCLIA [id number] [place] [id number] [facility] CNOVon 04-18-2025 CNOV Office Visit (FAMPWS ) DEONTE BLANCO ([id number]) 1955 F Date Time Provider Department 04/18/25 [...] by Dr. Overton, a hypertension specialist in [place] who she sees annually and recently saw [...] visit: Discharge Summary Note Author Berry Waldrop [facility] Note Date/Time April 15, 2025 7:16pm [...] meals HTN Controlled usually, was elevated at clinic lead and ER visit Likely also triggered by [...] (BLOOD GLUC (more content not included)... Normal [facility] Comprehensive metabolic 2000 panelon 04-18-2025 Albumin [Mass/Vol] 4.1 g/dL 3.9 - 4.9 g/dL [facility] ALP [Catalytic activity/Vol] 116 U/L 34 - 123 U/L [facility] ALT [Catalytic activity/Vol] 13 U/L 7 - 38 U/L [facility] Anion gap [Moles/Vol] 14 mmol/L 8 - 15 mmol/L [facility] AST [Catalytic activity/Vol] 19 U/L 13 - 35 U/L [facility] Bilirubin [Mass/Vol] 0.7 mg/dL 0.2 - 1 .3 mg/dL [facility] Calcium [Mass/Vol] 9.9 mg/dL 8.5 - 10. 2 mg/dL [facility] Chloride [Moles/Vol] 95 mmol/L Low 98 - 10 7 mmol/L [facility] CO2 [Moles/Vol] 23 mmol/L 22 - 30 mmol/L [facility] Creatinine [Mass/Vol] 0.77 mg/dL 0.58 - 0.96 mg/dL [facility] GFR/1.73 sq M.predicted among non-blacks MDRD (S/P/Bld) [Vol rate/Area] 84 mL/min/{1.73_m2} - PINF [facility] Comment on above: Estimated Glomerular Filtration [...] 277 mg/dL High 74 - 99 mg/dL [facility] Comment on above: The [place] Diab[employer] Association (ADA) provides guidance for [...] Standards of Medical Care in Diabetes 2016, [place] [employer]. Diabetes Care. 2016.39(Suppl 1). Interpretation and review of laboratory results Abnormal [facility] Potassium [Moles/Vol] 4 mmol/L 3.7 - 5.1 mmol/L [facility] Protein [Mass/Vol] 7.2 g/dL 6.3 - 8.0 g/dL [facility] Sodium [Moles/Vol] 132 mmol/L Low 136 - 144 mmol/L [facility] Urea nitrogen [Mass/Vol] 19 mg/dL 7 - 21 mg/dL [facility] Albumin [Mass/Vol] 4.1 g/dL Normal 3.9-4.9 [facility] Comment on above: Order Comment: Abimbola diaz Type: BLOOD SPECIMENOrdering Facility: [facility] Address: [address] [place] [address] Performed By: #### 2 4323-8 ####[facility] LABCLIA [id number] [place] [address] [place] ALP [Catalytic activity/Vol] 116 U/L Normal 34-123 [facility] Comment on above: Order Comment: Abimbola diaz Type: BLOOD SPECIMENOrdering Facility: [facility] Address: [address] [place] [address] Performed By: #### 2 4323-8 ####[facility] LABCLIA [id number] [facility] [id number], [place] [address] [place] ALT [Catalytic activity/Vol] 13 U/L Normal 7-38 [facility] Comment on above: Order Comment: Speci men Type: BLOOD SPECIMENOrdering Facility: [facility] Address: [address] [place], [place] [address] Performed By: #### 2 4323-8 ####[facility] LABCLIA [id number] [facility] [address] [place] [address] [place] Anion gap [Moles/Vol] 14 mmol/L Normal 8-15 [facility] Comment on above: Order Comment: Speci men Type: BLOOD SPECIMENOrdering Facility: [facility] Address: [address] [place] [address] Performed By: #### 2 4323-8 ####[facility] LABCLIA [id number] [address], [facility] [place] AST [Catalytic activity/Vol] 19 U/L Normal 13-35 [facility] Comment on above: Order Comment: Speci men Type: BLOOD SPECIMENOrdering Facility: [facility] Address: [address] [place], [place] [address] Performed By: #### 2 4323-8 ####[facility] LABCLIA [id number] [facility] [place] [id number] [place] Bilirubin [Mass/Vol] 0.7 mg/dL Normal 0.2-1.3 [facility] Comment on above: Order Comment: Speci men Type: BLOOD SPECIMENOrdering Facility: [facility] Address: [address] [place], [place] [address] Performed By: #### 2 4323-8 ####[facility] LABCLIA [id number] [facility] [address] [address] [place] Calcium [Mass/Vol] 9.9 mg/dL Normal 8.5-10.2 [facility] Comment on above: Order Comment: Speci men Type: BLOOD SPECIMENOrdering Facility: [facility] Address: [address] [place] [id number] Performed By: #### 2 4323-8 ####[facility] LABCLIA [id number] [address] [address] [place] Chloride [Moles/Vol] 95 mmol/L Low 98-107 [facility] Comment on above: Order Comment: Speci men Type: BLOOD SPECIMENOrdering Facility: [facility] Address: [address] [place] [address] Performed By: #### 2 4323-8 ####[facility] LABCLIA [id number] [place] [address] [place] CO2 [Moles/Vol] 23 mmol/L Normal 22-30 [facility] Comment on above: Order Comment: Speci men Type: BLOOD SPECIMENOrdering Facility: [facility] Address: [address] [place] [address] Performed By: #### 2 4323-8 ####[facility] LABCLIA [id number] [place] [address] [place] Creatinine [Mass/Vol] 0.77 mg/dL Normal 0.58-0.96 [facility] Comment on above: Order Comment: Speci men Type: BLOOD SPECIMENOrdering Facility: [facility] Address: [address] [place] [address] Performed By: #### 2 4323-8 ####[facility] LABCLIA [id number] [place] [address] [place] eGFRcr SerPlBld CKD-EPI 2020 84 mL/min/1.73m??? Normal >=60 [facility] Comment on above: Order Comment: Speci men Type: BLOOD SPECIMENOrdering Facility: [facility] Address: [address] [place] [address] Result Comment: Ana Paula mated Glomerular Filtration [...] actual GFR. Performed By: #### 2 4323-8 ####[facility] LABIA [id number] [place] [address] [place] Glucose [Mass/Vol] 277 mg/dL High 74-99 [facility] Comment on above: Order Comment: Abimbola diaz Type: BLOOD SPECIMENOrdering Facility: [facility] Address: [address] [place] [address] Result Comment: The [place] Diabetes Association (ADA) provides guidance for cutoff [...] Standards of Medical Care in Diabetes 2016, [place] Diabetes Association. Diabetes Care. 2016.39(Suppl 1). Performed By: #### 2 4323-8 ####[facility] LABIA [id number] [facility] [address] [address] [place] Potassium [Moles/Vol] 4.0 mmol/L Normal 3.7-5.1 [facility] Comment on above: Order Comment: Abimbola diaz Type: BLOOD SPECIMENOrdering Facility: [facility] Address: [address] [place] [id number] Performed By: #### 2 4323-8 ####[facility] LABCLIA [id number] [facility] [address] [address] [place] Protein [Mass/Vol] 7.2 g/dL Normal 6.3-8.0 [facility] Comment on above: Order Comment: Speci men Type: BLOOD SPECIMENOrdering Facility: [facility] Address: [address] [place] [address] Performed By: #### 2 4323-8 ####[facility] LABCLIA [id number] [place] [address] [place] Sodium [Moles/Vol] 132 mmol/L Low 136-144 [facility] Comment on above: Order Comment: Speci men Type: BLOOD SPECIMENOrdering Facility: [facility] Address: [address] [place] [address] Performed By: #### 2 4323-8 ####[facility] LABCLIA [id number] [place] [id number] [place] Urea nitrogen [Mass/Vol] 19 mg/dL Normal 7-21 [facility] Comment on above: Order Comment: Speci men Type: BLOOD SPECIMENOrdering Facility: [facility] Address: [address] [place] [address] Performed By: #### 2 4323-8 ####[facility] LABCLIA [id number] [place] [id number] [place] GLUCOSE, BLOOD (POC)on 04-18 Glucose [Mass/Vol] 280 mg/dL Abnormal 74 - 99 mg/dL [facility] Comment on above: Location:[address], [facility] The Accu-Chek Inform II glucose meter has [...] Interpretation and review of laboratory results Abnormal [facility] CNPNon 04-17-2025 CNPN Telephone (FAMPWS) DEONTE BLANCO ([id number]) 1955 F Date Time Provider Department 04/17/25 PREET FARRAR FAMPWS During your visit today, [...] DM - Uncontrolled Insulin: Yes - Insulin Peyton, Disposable, (BD ULTRA-FINE MARIA T PEN NEEDLE) 32 gauge x 5/32 Use one needle for each dose. 1/day. - blood sugar diagnostic (BLOOD GLUCOSE TEST) test strip Test blood sugar(s) 2 times daily. Dx: Type 2 DM - Uncontrolled . Insulin: No - spironolactone (ALDACTONE) 25 mg [...] *12/09/2023 Diabet (more content not included)... Normal [facility] Absolute lymphocyte countOrd ered By: Berry Waldrop on 04-15-2025 Lymphocytes Auto (Unsp spec) [#/Vol] 2.26 10*3/uL 0.83-4.51 [facility] Absolute neutrophil countOrd ered By: Berry Waldrop on 04-15-2025 Neutrophils (Bld) [#/Vol] 17.1 10*3/uL High 2.0-7.7 [facility] Anion gap in Serum or Plasma Ordered By: Berry Waldrop on 04-15-2025 Anion gap [Moles/Vol] 15 mmol/L 5-15 [facility] Assessment of wrist artery p atency prior to arterial punctureOrdered By: Berry Waldrop on 04-15-2025 Arterial patency Wrist artery --pre arterial puncture Positive [facility] Automated lymphocyte count a s percentage of total leukocytesOrdered By: Berry Waldrop on 04-15-2025 Lymphocytes/100 WBC Auto (Unsp spec) 10.8 % Low [facility] BUN/creatinine ratioOrdered By: Berry Waldrop on 04-15-2025 Urea nitrogen/Creatinine [Mass ratio] 30.7 mg/mg High 07-17 [facility] Basic Metabolic Profile (BMP )on 04-15-2025 BUN/CRE 30.7 RATIO High 07-17 [facility] Comment on above: Order Comment: Redra wn send after the liter of normal saline. Performed By: #### L 501.080 #### [facility] [address] [facility] [address] Calcium [Mass/Vol] 9.3 mg/dL Normal 7.6-11.[address] [facility] Comment on above: Order Comment: Redra wn send after the liter of normal saline. Performed By: #### L 501.080 #### [facility] [address] [facility] [address] Chloride [Moles/Vol] 94 mmol/L Low 98-108 [facility] Comment on above: Order Comment: Redra wn send after the liter of normal saline. Performed By: #### L 501.080 #### [facility] [address] [place], [address] CO2 [Moles/Vol] 21.1 mmol/L Normal 21.0-32.0 [facility] Comment on above: Order Comment: Redra wn send after the liter of normal saline. Performed By: #### L 501.080 #### [facility] [address] [place], [address] Creatinine [Mass/Vol] 0.69 mg/dL Low 0.70-1.20 [facility] Comment on above: Order Comment: Redra wn send after the liter of normal saline. Performed By: #### L 501.080 #### [facility] [address] [place], [address] ECRCL 62.82 ml/min Normal 50-250 [facility] Comment on above: Order Comment: Redra wn send after the liter of normal saline. Performed By: #### L 501.080 #### [facility] [address] [place], [address] GAP 15 Normal 5-15 [facility] Comment on above: Order Comment: Redra wn send after the liter of normal saline. Performed By: #### L 501.080 #### [facility] [address] [place], [address] GFR/1.73 sq M.predicted among non-blacks MDRD (S/P/Bld) [Vol rate/Area] 94 mL/min/{1.73_m2} Normal >60 [facility] Comment on above: Order Comment: Redra wn send after the liter of normal saline. Result Comment: mL/m in/1.73m2 CKD-EPI Creatinine Equation (2020) Performed By: #### L 501.080 #### [facility] [address] [place], [address] Glucose [Mass/Vol] 264 mg/dL High 70-[address] [facility] Comment on above: Order Comment: Redra wn send after the liter of normal saline. Performed By: #### L 501.080 #### [facility] [address] [place], [address] Potassium [Moles/Vol] 3.5 mmol/L Normal 3.3-5.1 [facility] Comment on above: Order Comment: Redra wn send after the liter of normal saline. Result Comment: Hemo lysis present, Results??could be affected. ?? Performed By: #### L 501.080 #### [facility] [address] [place], [address] Sodium [Moles/Vol] 130 mmol/L Low 133-[address] [facility] Comment on above: Order Comment: Redra wn send after the liter of normal saline. Performed By: #### L 501.080 #### [facility] [address] [place], [address] Urea nitrogen [Mass/Vol] 21 mg/dL High 4-19 [facility] Comment on above: Order Comment: Redra wn send after the liter of normal saline. Performed By: #### L 501.080 #### [facility] [address] [place], [address] BUN/CRE 27.9 RATIO High 10-20 [facility] Comment on above: Performed By: #### L 501.080 #### [facility] [address] [place], [address] Calcium [Mass/Vol] 10.5 mg/dL Normal 7.6-11.[address] [facility] Comment on above: Performed By: #### L 501.080 #### [facility] [address] [place], [address] Chloride [Moles/Vol] 89 mmol/L Low 98-108 [facility] Comment on above: Performed By: #### L 501.080 #### [facility] [address] [place], [address] CO2 [Moles/Vol] 20.4 mmol/L Low 21.0-32.0 [facility] Comment on above: Performed By: #### L 501.080 #### [facility] [address] [place], [address] Creatinine [Mass/Vol] 1.06 mg/dL Normal 0.70-1.20 [facility] Comment on above: Performed By: #### L 501.080 #### [facility] [address] [place], [address] GAP 18 High 5-15 [facility] Comment on above: Performed By: #### L 501.080 #### [facility] [address] [place], [address] GFR/1.73 sq M.predicted among non-blacks MDRD (S/P/Bld) [Vol rate/Area] 57 mL/min/{1.73_m2} Low >60 [facility] Comment on above: Result Comment: mL/m in/1.73m2 CKD-EPI Creatinine Equation (2020) Performed By: #### L 501.080 #### [facility] [address] [place], [address] Glucose [Mass/Vol] 364 mg/dL High 70-[address] [facility] Comment on above: Performed By: #### L 501.080 #### [facility] [address] [place], [address] Potassium [Moles/Vol] 5.2 mmol/L High 3.3-5.1 [facility] Comment on above: Result Comment: Hemo lysis present, Results??could be affected. ?? Performed By: #### L 501.080 #### [facility] [address] [place], [address] Sodium [Moles/Vol] 127 mmol/L Low 133-[address] [facility] Comment on above: Performed By: #### L 501.080 #### [facility] [address] [place], [address] Urea nitrogen [Mass/Vol] 30 mg/dL High 4-19 [facility] Comment on above: Performed By: #### L 501.080 #### [facility] [address] [place], [address] Basophil percentageOrdered B y: Berry Waldrop on 04-15-2025 Basophils/100 WBC (Bld) 0.4 % 0-1 [facility] Bedside Glucoseon 04-15-2025 FINGERSTICK GLU 260 mg/dL High 74-106 [facility] Comment on above: Result Comment: CARIN GEMENT OF PATIENT CARE PER NURSING PROTOCOL Performed By: #### L 501.080 #### [facility] [address] [place], [address] FINGERSTICK GLU 269 mg/dL High 74-106 [facility] Comment on above: Result Comment: CARIN GEMENT OF PATIENT CARE PER NURSING PROTOCOL Performed By: #### L 501.080 #### [facility] [address] [place], [address] Beta-Hydroxbytyrateon 2024 BETA-HYDROXYBUT 0.4 mmol/L High 0.0-0.3 [facility] Comment on above: Performed By: #### L 501.080 #### [facility] [address] [place], [address] Beta-hydroxybutyrateOrdered By: Berry Waldrop on 04-15-2025 Beta hydroxybutyrate [Mass/Vol] 0.4 mmol/L High 0.0-0.3 [facility] Bilirubin Test strip Ql (U)O rdered By: Berry Waldrop on 04-15-2025 Bilirubin Ql (U) Negative Negative [facility] Blood Gases by CPSon 025 BEATRIZ TEST Positive Normal [facility] Comment on above: Performed By: #### L 9000.0800 #### [facility] [address] [place], [address] Base excess Calc (Bld) [Moles/Vol] -1 mmol/L Normal -2 to +2 [facility] Comment on above: Performed By: #### L 9000.0800 #### [facility] [address] [place], [address] Blood Gas Type ART Normal [facility] Comment on above: Performed By: #### L 8999.08 #### [facility] [address] [place], [address] CO2 [Moles/Vol] 22 mmol/L Normal [facility] Comment on above: Performed By: #### L 8999.08 #### [facility] [address] [place], [address] HCO3 (Bld) [Moles/Vol] 20.8 mmol/L Low 22-26 [facility] Comment on above: Performed By: #### L 8999.799 #### [facility] [address] [place], [address] Mode Not entered Normal [facility] Comment on above: Performed By: #### L 8999.08 #### [facility] [address] [place], [address] O2 Delivery Dev Room Air Normal [facility] Comment on above: Performed By: #### L 8999.08 #### [facility] [address] [place], [address] pCO2 21.8 mmHg Low 35-45 [facility] Comment on above: Performed By: #### L 8999.0800 #### [facility] [address] [place], [address] pH (Bld) 7.59 [pH] High 7.35-7.45 [facility] Comment on above: Performed By: #### L 8999.0800 #### [facility] [address] [place], [address] PO2 89 mmHG Normal 75-100 [facility] Comment on above: Performed By: #### L 9000.0800 #### [facility] [address] [place], [address] SITE L Radial Normal [facility] Comment on above: Performed By: #### L 9000.0800 #### [facility] [address] [place], [address] SO2 98 Normal 95-99 [facility] Comment on above: Performed By: #### L 9000.0800 #### [facility] [address] [place], [address] Blood base excess determinat ionOrdered By: Berry Waldrop on 04-15-2025 Base excess Calc (BldV) [Moles/Vol] -1 mmol/L -2-2 [facility] Blood bicarbonate measuremen tOrdered By: Berry Waldrop on 04-15-2025 HCO3 (Bld) [Moles/Vol] 20.8 mmol/L Low 22-26 [facility] CBC W/Diff, Automatedon 07- Absolute Lymph 2.26 X10 3/uL Normal 0.83-4.51 [facility] Comment on above: Performed By: #### L 501.080 #### [facility] Laboratory [address] [place], [address] Absolute Neut 17.1 X10 3/uL High 2.0-7.7 [facility] Comment on above: Performed By: #### L 501.080 #### [facility] Laboratory [address] [place], [address] Basophils/100 WBC (Bld) 0.4 % Normal 0-1 [facility] Comment on above: Performed By: #### L 501.080 #### [facility] Laboratory [address] [place], [address] Eosinophils/100 WBC (Bld) 0.2 % Normal 0-5 [facility] Comment on above: Performed By: #### L 501.080 #### [facility] Laboratory [address] [place], [address] Erythrocyte distribution width (RBC) [Ratio] 12.8 % Normal 11.6-14.6 [facility] Comment on above: Performed By: #### L 501.080 #### [facility] Laboratory [address] [place], [address] Hematocrit (Bld) [Volume fraction] 45.4 % Normal 37-47 [facility] Comment on above: Performed By: #### L 501.080 #### [facility] Laboratory [address] [place], [address] Hemoglobin (Bld) [Mass/Vol] 16.3 g/dL High 12.0-15.0 [facility] Comment on above: Performed By: #### L 501.080 #### [facility] Laboratory [address] [place], [address] IG% 0.700 Normal 0.0-0.9 [facility] Comment on above: Result Comment: IG% - Immature Granulocytes (promyelocytes, myelocytes and metamyelocytes) > 1% indicates that a LEFT SHIFT is Present. Performed By: #### L 501.080 #### [facility] Laboratory [address] [place], [address] Lymphocytes/100 WBC (Bld) 10.8 % Low 19-41 [facility] Comment on above: Performed By: #### L 501.080 #### [facility] Laboratory [address] [place], [address] MCH (RBC) [Entitic mass] 29.7 pg Normal 27.0-32.0 [facility] Comment on above: Performed By: #### L 501.080 #### [facility] Laboratory [address] [place], [address] MCHC (RBC) [Mass/Vol] 35.9 g/dL Normal 32-36 [facility] Comment on above: Performed By: #### L 501.080 #### [facility] Laboratory [address] [place], [address] MCV (RBC) [Entitic vol] 82.8 fL Normal 81-99 [facility] Comment on above: Performed By: #### L 501.080 #### [facility] Laboratory [address] [place], [address] Monocytes/100 WBC (Bld) 6.5 % Normal 0-10 [facility] Comment on above: Performed By: #### L 501.080 #### [facility] Laboratory [address] [place], [address] Neutrophils/100 WBC (Bld) 81.4 % High 47-70 [facility] Comment on above: Performed By: #### L 501.080 #### [facility] Laboratory [address] [place], [address] Nucleated RBC (Bld) [#/Vol] 0 10*3/uL Normal 0-5 [facility] Comment on above: Performed By: #### L 501.080 #### [facility] Laboratory [address] [place], [address] Platelet mean volume (Bld) [Entitic vol] 9.4 fL Normal 6.2-12.0 [facility] Comment on above: Performed By: #### L 501.080 #### [facility] Laboratory [address] [place], [address] Platelets (Bld) [#/Vol] 451 10*3/uL High 150-450 [facility] Comment on above: Performed By: #### L 501.080 #### [facility] Laboratory [address] [place], [address] RBC (Bld) [#/Vol] 5.48 10*6/uL High 4.2-5.4 [facility] Comment on above: Performed By: #### L 501.080 #### [facility] Laboratory [address] [place], [address] RDW SD 38.5 fl Normal 35.1-43.9 [facility] Comment on above: Performed By: #### L 501.080 #### [facility] Laboratory [address] [place], [address] WBC (Bld) [#/Vol] 21.0 10*3/uL High 4.4-11.0 [facility] Comment on above: Performed By: #### L 501.080 #### [facility] Laboratory [address] [place], [address] Carbon dioxide, total [Moles /volume] in Central venous bloodOrdered By: Berry Waldrop on 04-15-2025 CO2 [Moles/Vol] 21.1 mmol/L 21.0-32.0 [facility] Chloride assayOrdered By: Tanmay Waldrop on 04-15-2025 Chloride [Moles/Vol] 94 mmol/L Low 98-108 [facility] Emergency Department Summary on 04-15-2025 Emergency Department Summary [facility] Medical Records Department [address] [place] [address] Emergency Department Summary 04/15/25 MR#: [id number] Acct: [id number] Name: DEONTE BLANCO Rep #: [id number] : 1955 69 From: Berry Waldrop MD PCP: Dr. Preet Farrar, Status:REG ER Location: ED ADDENDUM by Dr. Juan Rivera, DO on 04/15/25 at 1916 Patient case [...] she was discharged home in stable condition. 04/15/251914 Cosigner Signature (if applicable): cc: Dr. Preet Farrar, DO * Signed HPI History of Present Illness Chief [...] Ambulatory dysfunction Intractable back pain Home Medications ???Medication ???Instructions ???Recorded ???Last Taken ???Type ergocalciferol (vitamin D2) 1,250 50,000 unit PO MOFR SUPPLEMENT 12/26/24 08:00 History mcg (50,000 unit) capsule thyroid (pork) 120 mg tablet 120 tablet PO DAILY THYROID 12/27/24 06:00 History clopidogrel 75 mg tablet 75 mg PO DAILY BLOOD THINNER #30 0 11/04/22 12/22/24 Rx tabs carvedilol 6.25 mg tablet 6.25 mg PO BID 03/05/24 12/27/24 0 6:00 History pantoprazole 40 mg tablet,delayed 40 mg PO DAILY #30 tabs 05/22/24 12/27/24 06:00 Rx release thyroid (pork) 30 mg tablet 30 mg PO MOWEFR 07/21/24 12/26/24 08:00 History (Wray Thyroid) insulin glargine 100 unit/mL (3 20 unit subcut DAILY 12/12/2411/28 10:00 History mL) subcutaneous pen (Lantus Solostar U-100 Insulin) spironolactone 25 mg tablet 25 mg PO BID 12/12/24 12/26/24 20: 00 History elderberry fruit 200 mg capsule 1,000 mg PO DAILY 12/13/24 5 08:00 History atorvastatin 40 mg tablet 40 mg PO QDAY #90 tabs 01/26/25 Un known Rx dulaglutide 0.75 mg/0.5 mL 0.75 mg subcut QWEEK 01/26/25 Unkn own History subcutaneous pen injector (Trulicity) glimepiride 2 mg tablet 2 mg PO BID 01/26/25 Unknown Histo ry dulaglutide 1.5 mg/0.5 mL 1.5 mg subcut QWEEK 04/15/25 Unkno wn History subcutaneous pen injector (Trulicity) Allergy/AdvReac Type Severity Reaction Status Date / Time metformin Allergy Severe Hives Verified 04/15/25 13:12 prednisone Allergy Intermediate Itching Verified 04/15/25 13:12 aspirin Allergy mouth Verified 04/15/25 13:12 swelling gluten Allergy Abd Verified 04/15/25 13:12 cramps/diarrhea ibuprofen Allergy mouth Verified 04/15/25 13: (more content not included)... Normal [facility] Eosinophil percentageOrdered By: Berry Waldrop on 04-15-2025 Eosinophils/100 WBC (Bld) 0.2 % 0-5 [facility] Erythrocyte distribution wid th ratioOrdered By: Berry Waldrop on 04-15-2025 Erythrocyte distribution width (RBC) [Ratio] 12.8 % 11.6-14.6 [facility] Erythrocyte distribution wid th standard deviationOrdered By: Berry Waldrop on 04-15-2025 Erythrocyte distribution width (RBC) [Ratio] 38.5 fl 35.1-43.9 [facility] Glomerular filtration rate ( GFR) estimation/1.73 sq m using serum, plasma, or whole bOrdered By: Berry Waldrop on 04-15-2025 GFR/1.73 sq M.predicted among non-blacks MDRD (S/P/Bld) [Vol rate/Area] 94 mL/min/{1.73_m2} >60 [facility] Comment on above: mL/min/1.73m2 CKD-EP I Creatinine Equation (2020) [facility] deOrdered By: Berry Waldrop on 04-15-2025 Glucose [Mass/Vol] 260 mg/dL High 74-[address] [facility] Comment on above: MANAGEMENT OF PATIEN T CARE PER NURSING PROTOCOL Glucose [Mass/Vol] 269 mg/dL High 74-[address] [facility] Comment on above: MANAGEMENT OF PATIEN T CARE PER NURSING PROTOCOL Hematocrit Auto (Bld) [Volum e fraction]Ordered By: Berry Waldrop on 04-15-2025 Hematocrit (Bld) [Volume fraction] 45.4 % 37-47 [facility] Hemoglobin measurementOrdere d By: Berry Waldrop on 04-15-2025 Hemoglobin (Bld) [Mass/Vol] 16.3 g/dL High 12.0-15.0 [facility] Hyaline casts LM.LPF (Urine sed) [#/Area]Ordered By: Berry Waldrop on 04-15-2025 Hyaline casts (Urine sed) [#/Area] 5 /[LPF] 0-5 [facility] Immature granulocytes/100 WB C Auto (Bld)Ordered By: Berry Waldrop on 04-15-2025 Immature granulocytes/100 WBC (Bld) 0.700 % 0.0-0.9 [facility] Comment on above: IG% - Immature Granu locytes (promyelocytes, myelocytes and metamyelocytes) > 1% indicates that a LEFT SHIFT is Present. Ketones Test strip Ql (U)Ord ered By: Berry Waldrop on 04-15-2025 Ketones Ql (U) 50 mg/dl High Negative [facility] MCV (mean corpuscular volume ) determinationOrdered By: Berry Waldrop on 04-15-2025 MCV (RBC) [Entitic vol] 82.8 fL 81-99 [facility] Mean corpuscular hemoglobin (MCH) determinationOrdered By: Berry Waldrop on 04-15-2025 MCH (RBC) [Entitic mass] 29.7 pg 27.0-32.0 [facility] Mean corpuscular hemoglobin concentration (MCHC) determinationOrdered By: Berry Waldrop on 04-15-2025 MCHC (RBC) [Mass/Vol] 35.9 g/dL 32-36 [facility] Mean platelet volume determi nationOrdered By: Berry Waldrop on 04-15-2025 Platelet mean volume (Bld) [Entitic vol] 9.4 fL 6.2-12.0 [facility] Measurement, pHOrdered By: Vanita Waldrop on 04-15-2025 pH (Unsp spec) 7.59 [pH] High 7.35-7.45 [facility] Microscopic analysis of urin e for red blood cells (RBC)Ordered By: Berry Waldrop on 04-15-2025 Microscopic analysis of urine for red blood cells (RBC) 0 SEEN /hpf 0-5 [facility] Monocyte percentageOrdered B y: Berry Waldrop on 04-15-2025 Monocytes/100 WBC (Bld) 6.5 % 0-10 [facility] Mucus LM Ql (Urine sed)Order ed By: Berry Waldrop on 04-15-2025 Mucus Ql (Urine sed) 0 SEEN /hpf [facility] Neutrophil percentageOrdered By: Berry Waldrop on 04-15-2025 Neutrophils/100 WBC (Bld) 81.4 % High 47-70 [facility] Nitrite Test strip Ql (U)Ord ered By: Berry Waldrop on 04-15-2025 Nitrite Ql (U) Negative Negative [facility] No Panel InformationOrdered By: Berry Waldrop on 04-15-2025 Blood Gas Sample Site L Radial [facility] Blood Gas Specimen Type ART [facility] Blood Gas Vent Mode Not entered [facility] Oxygen Delivery Device Room Air [facility] Nucleated red blood cell per centageOrdered By: Berry Waldrop on 04-15-2025 Nucleated RBC/100 WBC (Bld) [Ratio] 0 % 0-5 [facility] Platelet countOrdered By: Tanmay Waldrop on 04-15-2025 Platelets (Bld) [#/Vol] 451 10*3/uL High 150-450 [facility] Potassium measurement (mass/ volume)Ordered By: Berry Waldrop on 04-15-2025 Potassium (Unsp spec) [Mass/Vol] 3.5 mmol/L 3.3-5.1 [facility] Comment on above: Hemolysis present, R esults could be affected. Protein Test strip Ql (U)Ord ered By: Berry Waldrop on 04-15-2025 Protein Ql (U) 30 mg/dl High Negative [facility] RBC Auto (Bld) [#/Vol]Ordere d By: Berry Waldrop on 04-15-2025 RBC (Bld) [#/Vol] 5.48 10*6/uL High 4.2-5.4 [facility] Serum creatinine measurement (mass/volume)Ordered By: Berry Waldrop on 04-15-2025 Creatinine [Mass/Vol] 0.69 mg/dL Low 0.70-1.20 [facility] Serum glucose measurement (m ass/volume)Ordered By: Berry Waldrop on 04-15-2025 Glucose [Mass/Vol] 264 mg/dL High 70-[address] [facility] Serum or plasma calcium mulugeta urement (mass/volume)Ordered By: Berry Waldrop on 04-15-2025 Calcium [Mass/Vol] 9.3 mg/dL 7.6-11.[address] [facility] Serum or plasma urea nitroge n measurement (mass/volume)Ordered By: Berry Waldrop on 04-15-2025 Urea nitrogen [Mass/Vol] 21 mg/dL High 4-19 [facility] Sodium levelOrdered By: Berry Waldrop on 04-15-2025 Sodium [Moles/Vol] 130 mmol/L Low 133-[address] [facility] Squamous epithelial cells de tection in urine sediment by light microscopyOrdered By: Berry Waldrop on 04-15-2025 Epithelial cells.squamous LM Ql (Urine sed) 5-10 SEEN /hpf 5-10 [facility] Total carbon dioxide measure mentOrdered By: Berry Waldrop on 04-15-2025 CO2 [Moles/Vol] 22 mmol/L [facility] Urinalysis, Completeon 04-15 CAST,HYALINE 5-10 SEEN Normal 0-5 [facility] Comment on above: Order Comment: COLLE CTOR TO SPECIFY Performed By: #### L 501.080 #### [facility] Laboratory [address] [place], [address] BACTERIA 1+ /hpf Normal None Seen [facility] Comment on above: Order Comment: COLLE CTOR TO SPECIFY Performed By: #### L 501.080 #### [facility] Laboratory [address] [place], [address] EPI,SQUAMOUS 5-10 SEEN Normal 5-10 [facility] Comment on above: Order Comment: ELVIA CTOR TO SPECIFY Performed By: #### L 501.080 #### [facility] Laboratory [address] [place], [address] WBC 0-5 SEEN Normal 0-5 [facility] Comment on above: Order Comment: ELVIA CTOR TO SPECIFY Performed By: #### L 501.080 #### [facility] Laboratory [address] [place], [address] Mucus Ql (Urine sed) 0 SEEN Normal [facility] Comment on above: Order Comment: ELVIA CTOR TO SPECIFY Performed By: #### L 501.080 #### [facility] Laboratory [address] [place], [address] RBC 0 SEEN Normal 0-5 [facility] Comment on above: Order Comment: COLLE CTOR TO SPECIFY Performed By: #### L 501.080 #### [facility] Laboratory [address] [place], [address] Urine clarityOrdered By: Bryan Waldrop on 04-15-2025 Clarity (U) Sl. Cloudy Clear [facility] Urine color determinationOrd ered By: Berry Waldrop on 04-15-2025 Color (U) Yellow Yellow [facility] Urine glucose detectionOrder ed By: Berry Waldrop on 04-15-2025 Glucose Ql (U) 1000 mg/dl High Normal [facility] Urine leukocyte esterase det ection by dipstickOrdered By: Berry Waldrop on 04-15-2025 Leukocyte esterase Test strip Ql (U) Negative Negative [facility] Urine pHOrdered By: Berry minaya on 04-15-2025 pH (U) 6.0 [pH] 5.0 - 8.0 [facility] Urine sediment bacteria coun t by microscopy (number/high power field)Ordered By: Berry Waldrop on 04-15-2025 Bacteria LM.HPF (Urine sed) [#/Area] 1 /[HPF] None Seen [facility] Urine specific gravity measu rementOrdered By: Berry Waldrop on 04-15-2025 Specific gravity (U) [Rel density] 1.015 1.002-1.03 0 [facility] Urine urobilinogen measureme ntOrdered By: Berry Waldrop on 04-15-2025 Urobilinogen Ql (U) Normal mg/dl Normal [facility] White blood cell (WBC) count Ordered By: Berry Waldrop on 04-15-2025 WBC (Bld) [#/Vol] 21.0 10*3/uL High 4.4-11.0 [facility] White blood cell countOrdere d By: Berry Waldrop on 04-15-2025 White blood cell count 0-5 SEEN /hpf 0-5 [facility] CNPNon 04-06-2025 CNPN Telephone (FAMWS) DEONTE BLANCO ([id number]) 1955 F Date Time Provider Department 04/06/25 [facility] During your visit today, we recorded the following information about you: Lisa Aparicio RN 04/06/2025 10:40 AM Signed PRIOR AUTHORIZATION Medication for Prior Authorization: [employer] Company: [facility] Medicare Patient insurance ID number: [id number] OLVIN Whitfield Janice, LPN 04/06/2025 11:00 AM Signed Electronic PA requested for both doses 120mg and 30 mg Liz Richards LPN 04/06/2025 11:24 AM Signed PA completed with both doses. Liz Richards LPN 04/06/2025 1:46 PM Signed This was denied last year and again this year. ote from payer: Request Reference Number: [id number]. ARMOUR THYRO TAB 120MG is denied for not meeting the prior authorization requirement(s). Details of this decision are in the notice attached below or have been faxed to you. Payer: [employer] P[employer] Part D [phone] Electronic appeal: Not supported Appeal instructions: Appeals are not supported through ePA. Please refer to the fax case notice for appeals information and instructions. View History Notes Time User Attachment Attachment received from payer. 04/06/2025 1:43 PM Cchs, Rx Priorauth In Document Pharmacy Benefits Open Encounter [employer] ([employer]) Covered: Retail, Mail Order Unknown: Specialty, Long-Term Care BIN: [id number] : 1955 Group ID: [id number] PCN: [id number] Legal sex: F Group name: [employer] Address: [address] [place] [address] Medication Being Authorized ARMOUR THYROID 120 mg tablet Take 1 tablet PO daily in AM Dispense: 90 tablet Refills: 1 TRACEY Start: 01/20/2025 Class: Normal Diagnoses: Acquired hypothyroidism This order has been released to its destination. To be filled at: [facility] [address] [place] [address] [address] [facility] - [phone] Prior Authorization History for ARMOUR THYROID 120 [...] - Uncontrolled E11.65 Insulin: Yes - Insulin Peyton, Disposable, (BD ULTRA-FINE MARIA T PEN NEEDLE) [...] 8 times daily. Dx: E11.. Insulin: No - ELDERBERRY FRUIT ORAL Take 1,000 mg by mouth once daily. - Blood Pressure Monitor (BLOOD PRESSURE KIT) 1 Each as directed. Dx: essential hypertension - Lancets lancets Test blood sugar(s) 2 times daily. Dx: Type 2 DM - Uncontrolled Insulin: No Problem List As Of D (more content not included)... Normal [facility] CBC W Auto Differential pane l (Bld)on 03-29-2025 Basophils (Bld) [#/Vol] 0.06 10*3/uL Normal <0.11 [facility] Comment on above: Order Comment: Speci men Type: BLOOD SPECIMENOrdering Facility: [facility] Address: [address] [place] [address] Performed By: #### 5 7021-8 ####[facility] LABCLIA [id number] [place] [address] [place] Basophils/100 WBC (Bld) 0.6 % Normal [facility] Comment on above: Order Comment: Speci men Type: BLOOD SPECIMENOrdering Facility: [facility] Address: [address] [place] [address] Performed By: #### 5 7021-8 ####[facility] LABCLIA [id number] [place] [address] [place] Differential cell count method Nom (Bld) Auto Normal [facility] Comment on above: Order Comment: Speci men Type: BLOOD SPECIMENOrdering Facility: [facility] Address: [address] [place] [address] Performed By: #### 5 7021-8 ####[facility] LABCLIA [id number] [place] [address] [place] Eosinophils (Bld) [#/Vol] 0.24 10*3/uL Normal <0.46 [facility] Comment on above: Order Comment: Speci men Type: BLOOD SPECIMENOrdering Facility: [facility] Address: [address] [place] [address] Performed By: #### 5 7021-8 ####[facility] LABCLIA [id number] [facility] [place] [address] [place] Eosinophils/100 WBC (Bld) 2.2 % Normal [facility] Comment on above: Order Comment: Speci men Type: BLOOD SPECIMENOrdering Facility: [facility] Address: [address] [place] [address] Performed By: #### 5 7021-8 ####[facility] LABCLIA [id number] [address], [place] [address] [place] Erythrocyte distribution width (RBC) [Ratio] 12.8 % Normal 11.5-15.0 [facility] Comment on above: Order Comment: Speci men Type: BLOOD SPECIMENOrdering Facility: [facility] Address: [address] [place] [address] Performed By: #### 5 7021-8 ####[facility] LABCLIA [id number] [address] [place] Hematocrit (Bld) [Volume fraction] 40.0 % Normal 36.0-46.0 [facility] Comment on above: Order Comment: Speci men Type: BLOOD SPECIMENOrdering Facility: [facility] Address: [address] [place] [address] Performed By: #### 5 7021-8 ####[facility] LABCLIA [id number] [place] [id number] [place] Hemoglobin (Bld) [Mass/Vol] 13.9 g/dL Normal 11.5-15.5 [facility] Comment on above: Order Comment: Speci men Type: BLOOD SPECIMENOrdering Facility: [facility] Address: [address] [place] [address] Performed By: #### 5 7021-8 ####[facility] LABCLIA [id number] [facility] [place] [address] [place] Immature granulocytes (Bld) [#/Vol] 0.06 10*3/uL Normal <0.10 [facility] Comment on above: Order Comment: Speci men Type: BLOOD SPECIMENOrdering Facility: [facility] Address: [address] [place] [address] Performed By: #### 5 7021-8 ####[facility] LABCLIA [id number] [facility] [address] [place] OF [facility] Immature granulocytes/100 WBC (Bld) 0.6 % Normal [facility] Comment on above: Order Comment: Speci men Type: BLOOD SPECIMENOrdering Facility: [facility] Address: [address] [place] [address] Performed By: #### 5 7021-8 ####[facility] LABCLIA [id number] [place] [id number] [place] Lymphocytes (Bld) [#/Vol] 2.27 10*3/uL Normal 1.00-4.00 [facility] Comment on above: Order Comment: Speci men Type: BLOOD SPECIMENOrdering Facility: [facility] Address: [address] [place] [address] Performed By: #### 5 7021-8 ####[facility] LABCLIA [id number] [facility] [place] [id number] [place] Lymphocytes/100 WBC (Bld) 21.0 % Normal [facility] Comment on above: Order Comment: Speci men Type: BLOOD SPECIMENOrdering Facility: [facility] Address: [address] [place] [address] Performed By: #### 5 7021-8 ####[facility] LABCLIA [id number] [facility] [id number] [place] [address] MCH (RBC) [Entitic mass] 30.5 pg Normal 26.0-34.0 [facility] Comment on above: Order Comment: Speci men Type: BLOOD SPECIMENOrdering Facility: [facility] Address: [address] [place] [address] Performed By: #### 5 7021-8 ####[facility] LABCLIA [id number] [place] [address] [place] MCHC (RBC) [Mass/Vol] 34.8 g/dL Normal 30.5-36.0 [facility] Comment on above: Order Comment: Speci men Type: BLOOD SPECIMENOrdering Facility: [facility] Address: [address] [place] [address] Performed By: #### 5 7021-8 ####[facility] LABCLIA [id number] [place] [address] [place] MCV (RBC) [Entitic vol] 87.9 fL Normal 80.0-100.0 [facility] Comment on above: Order Comment: Speci men Type: BLOOD SPECIMENOrdering Facility: [facility] Address: [address] [place] [address] Performed By: #### 5 7021-8 ####[facility] LABCLIA [id number] [place] [address] [place] Monocytes (Bld) [#/Vol] 0.75 10*3/uL Normal <0.87 [facility] Comment on above: Order Comment: Speci men Type: BLOOD SPECIMENOrdering Facility: [facility] Address: [address] [place] [address] Performed By: #### 5 7021-8 ####[facility] LABCLIA [id number] [place] [id number] [place] Monocytes/100 WBC (Bld) 6.9 % Normal [facility] Comment on above: Order Comment: Speci men Type: BLOOD SPECIMENOrdering Facility: [facility] Address: [address] [place] [address] Performed By: #### 5 7021-8 ####[facility] LABCLIA [id number] [place] [address] [place] Neutrophils (Bld) [#/Vol] 7.45 10*3/uL Normal 1.45-7.50 [facility] Comment on above: Order Comment: Speci men Type: BLOOD SPECIMENOrdering Facility: [facility] Address: [address] [place] [address] Performed By: #### 5 7021-8 ####[facility] LABCLIA [id number] [place] [address] [place] Neutrophils/100 WBC (Bld) 68.7 % Normal [facility] Comment on above: Order Comment: Speci men Type: BLOOD SPECIMENOrdering Facility: [facility] Address: [address] [place] [address] Performed By: #### 5 7021-8 ####[facility] LABCLIA [id number] [place] [address] [place] Nucleated RBC (Bld) [#/Vol] 10*3/uL Normal <0.01 [facility] Comment on above: Order Comment: Speci men Type: BLOOD SPECIMENOrdering Facility: [facility] Address: [address] [place] [address] Performed By: #### 5 7021-8 ####[facility] LABCLIA [id number] [place] [id number] [place] Nucleated RBC/100 WBC (Bld) [Ratio] 0.0 /100 WBC Normal [facility] Comment on above: Order Comment: Speci men Type: BLOOD SPECIMENOrdering Facility: [facility] Address: [address] [place] [address] Performed By: #### 5 7021-8 ####[facility] LABCLIA [id number] [place] [address] [place] Platelet mean volume (Bld) [Entitic vol] 9.7 fL Normal 9.0-12.7 [facility] Comment on above: Order Comment: Speci men Type: BLOOD SPECIMENOrdering Facility: [facility] Address: [address] [place] [address] Performed By: #### 5 7021-8 ####[facility] LABIA [id number] [place] [address] [place] Platelets (Bld) [#/Vol] 386 10*3/uL Normal 150-400 [facility] Comment on above: Order Comment: Speci men Type: BLOOD SPECIMENOrdering Facility: [facility] Address: [address] [place] [address] Performed By: #### 5 7021-8 ####[facility] LABIA [id number] [place] [address] [place] RBC (Bld) [#/Vol] 4.55 10*6/uL Normal 3.90-5.20 [facility] Comment on above: Order Comment: Speci men Type: BLOOD SPECIMENOrdering Facility: [facility] Address: [address] [place] [address] Performed By: #### 5 7021-8 ####[facility] LABIA [id number] [place] [id number] [place] WBC (Bld) [#/Vol] 10.83 10*3/uL Normal 3.70-11.00 [facility] Comment on above: Order Comment: Speci men Type: BLOOD SPECIMENOrdering Facility: [facility] Address: [address] [place] [address] Performed By: #### 5 7021-8 ####[facility] LABIA [id number] [place] [id number] [place] Iron and Iron binding capaci ty panelon 03-29-2025 Iron [Mass/Vol] 69 ug/dL Normal 41-186 [facility] Comment on above: Order Comment: Speci men Type: BLOOD SPECIMENOrdering Facility: [facility] Address: [address] [place] [address] Performed By: #### 2 4362-6, 3084-1, 2730-8, 89520-5 ####[facility] LABCLIA [id number] [place] [id number] [place] Iron binding capacity [Mass/Vol] 375 ug/dL Normal 232-386 [facility] Comment on above: Order Comment: Speci men Type: BLOOD SPECIMENOrdering Facility: [facility] Address: [address] [place] [address] Performed By: #### 2 4362-6, 3084-1, 8, 58455-7 ####[facility] LABCLIA [id number] [place] [address] [place] Iron/TIBC [Molar ratio] 18.4 % Normal 15.0-57.0 [facility] Comment on above: Order Comment: Speci men Type: BLOOD SPECIMENOrdering Facility: [facility] Address: [address] [place] [address] Performed By: #### 2 4362-6, 3084-1, 8, 75231-7 ####[facility] LABCLIA [id number] [place] [id number] [place] P[facility] - Parathyrin.intact [Mass/Vol] 40 pg/mL Normal 15-65 [facility] Comment on above: Order Comment: Noryi men Type: BLOOD SPECIMENOrdering Facility: [facility] Address: [address] [place] [address] Performed By: #### 2 4362-6, 3084-1, 2730-8, 63238-7 ####[facility] LABCLIA [id number] [place] [id number] [place] Prot/Creat Uron 03-29-2025 Protein/Creatinine (U) [Mass ratio] 0.08 mg/mg Normal <0.15 [facility] Comment on above: Order Comment: Speci men Type: URINE SPECIMENOrdering Facility: [facility] Address: [address] [place] [address] Result Comment: Adul t Proteinuria Categories: <0.15 mg/mg is considered normal to mildly increased 0.15 - 0.50 mg/mg is considered moderately increased >0.50 mg/mg is considered severely increased KDIGO. (2013). KDIGO 2012 Clinical Practice Guideline for the Evaluation and Management of Chronic Kidney Disease. Official Journal of the International Society of Nephrology, 3(1), 1-150. Performed By: #### 2 890-2 ####[facility] LABIA [id number] [place] [id number] [place] Protein/Creatinine (U) [Mass ratio]on 03-29-2025 Creatinine (U) [Mass/Vol] 73.3 mg/dL Normal 20.0-300.0 [facility] Comment on above: Order Comment: Speci men Type: URINE SPECIMENOrdering Facility: [facility] Address: [address] [place] [address] Performed By: #### 2 890-2 ####[facility] LABIA [id number] [place] [id number] [place] Protein (U) [Mass/Vol] 6 mg/dL Normal 0-20 [facility] Comment on above: Order Comment: Speci men Type: URINE SPECIMENOrdering Facility: [facility] Address: [address] [place] [address] Performed By: #### 2 890-2 ####[facility] LABIA [id number] [address] [address] [place] Renal function 2000 panelon 03-29-2025 Albumin [Mass/Vol] 4.3 g/dL Normal 3.9-4.9 [facility] Comment on above: Order Comment: Speci men Type: BLOOD SPECIMENOrdering Facility: [facility] Address: [address] [place] [address] Performed By: #### 2 4362-6, 3084-1, 2730-8, 23149-8 ####[facility] LABCLIA [id number] [facility] [address] [address] [place] Anion gap [Moles/Vol] 13 mmol/L Normal 8-15 [facility] Comment on above: Order Comment: Speci men Type: BLOOD SPECIMENOrdering Facility: [facility] Address: [address] [place] [address] Performed By: #### 2 4362-6, 3084-1, 8, 98787-9 ####[facility] LABCLIA [id number] [address] [address] [place] Calcium [Mass/Vol] 9.8 mg/dL Normal 8.5-10.2 [facility] Comment on above: Order Comment: Speci men Type: BLOOD SPECIMENOrdering Facility: [facility] Address: [address] [place] [address] Performed By: #### 2 4362-6, 3084-1, 8, 41517-1 ####[facility] LABCLIA [id number] [facility] [address] [address] [place] Chloride [Moles/Vol] 100 mmol/L Normal 98-107 [facility] Comment on above: Order Comment: Speci men Type: BLOOD SPECIMENOrdering Facility: [facility] Address: [address] [place] [address] Performed By: #### 2 4362-6, 3084-1, 273-8, 86773-5 ####[facility] LABCLIA [id number] [facility] [address] [address] [place] CO2 [Moles/Vol] 23 mmol/L Normal 22-30 [facility] Comment on above: Order Comment: Speclillian diaz Type: BLOOD SPECIMENOrdering Facility: [facility] Address: [address] [place] [address] Performed By: #### 2 4362-6, 3084-1, 1-8, 19770-2 ####[facility] LABCLIA [id number] [address] [address] [place] Creatinine [Mass/Vol] 0.64 mg/dL Normal 0.58-0.96 [facility] Comment on above: Order Comment: Noryi men Type: BLOOD SPECIMENOrdering Facility: [facility] Address: [address] [place] [address] Performed By: #### 2 4362-6, 3084-1, 2730-8, 11581-5 ####[facility] LABCLIA [id number] [place] [address] [place] Creatinine and Glomerular filtration rate.predicted panel (S/P/Bld) 96 mL/min/1.73m??? Normal >=60 [facility] Comment on above: Order Comment: Abimbola diaz Type: BLOOD SPECIMENOrdering Facility: [facility] Address: [address] [place] [address] Result Comment: Ana Paula mated Glomerular Filtration [...] GFR. Performed By: #### 2 4362-6, 3084-1, 273-8, 90233-4 ####[facility] LABCLIA [id number] [address] [address] [place] Glucose [Mass/Vol] 234 mg/dL High 74-99 [facility] Comment on above: Order Comment: Abimbola diaz Type: BLOOD SPECIMENOrdering Facility: [facility] Address: [address] [place] [address] Result Comment: The [place] Diabetes Association (ADA) provides guidance for cutoff [...] Standards of Medical Care in Diabetes 2016, [place] Diabetes Association. Diabetes Care. 2016.39(Suppl 1). Performed By: #### 2 4362-6, 3084-1, 2730-8, 07310-3 ####[facility] LABCLIA [id number] [place] [address] [place] Phosphate [Mass/Vol] 3.1 mg/dL Normal 2.7-4.8 [facility] Comment on above: Order Comment: Abimbola diaz Type: BLOOD SPECIMENOrdering Facility: [facility] Address: [address] [place] [address] Performed By: #### 2 4362-6, 3084-1, 8, 45981-6 ####[facility] LABCLIA [id number] [place] [address] [place] Potassium [Moles/Vol] 4.4 mmol/L Normal 3.7-5.1 [facility] Comment on above: Order Comment: Abimbola diaz Type: BLOOD SPECIMENOrdering Facility: [facility] Address: [address] [place] [address] Performed By: #### 2 4362-6, 3084-1, 8, 18091-3 ####[facility] LABCLIA [id number] [address] [address] [place] Sodium [Moles/Vol] 136 mmol/L Normal 136-144 [facility] Comment on above: Order Comment: Speci men Type: BLOOD SPECIMENOrdering Facility: [facility] Address: [address] [place] [address] Performed By: #### 2 4362-6, 3084-1, 8, 25151-1 ####[facility] LABIA [id number] [place] [address] [place] Urea nitrogen [Mass/Vol] 20 mg/dL Normal 7-21 [facility] Comment on above: Order Comment: Speci men Type: BLOOD SPECIMENOrdering Facility: [facility] Address: [address] [place] [address] Performed By: #### 2 4362-6, 308-1, 8, 91511-7 ####[facility] LABIA [id number] [place] [id number] [place] Urate SerPl-mCncon Urate [Mass/Vol] 4.1 mg/dL Normal 2.5-6.6 [facility] Comment on above: Order Comment: Speci men Type: BLOOD SPECIMENOrdering Facility: [facility] Address: [address] [place] [address] Performed By: #### 2 4362-6, 308-1, 2731-04, 58200-4 ####[facility] LABIA [id number] [address] [address] [place] C peptide SerPl-mCncon 03-22 C peptide [Mass/Vol] 4.4 ng/mL Normal 1.1-4.4 [facility] Comment on above: Order Comment: Speci men Type: BLOOD SPECIMENOrdering Facility: [facility] Address: [facility] [place] [id number] Performed By: #### 1 986-9 ####[facility] LABJENNIFER [id number] GHADAAraceli PORTILLOSHERMAN OAKS HOSPITAL AND THE GROSSMAN BURN CENTERFranca [address] STATES OF [facility] CNCOon 03-22-2025 CNCO Clinical report post ed in error Letter Text Normal [facility] CNOVon 03-22-2025 CNOV Office Visit (FAMPWS ) DEONTE BLANCO ([id number]) 1955 F Date Time Provider Department 03/22/25 2:00 PM [facility] During your visit today, we recorded the following information about you: Pulse Blood pressure Weight 78/minute 140/70 84.3 kg Liliana Bennett APRN.DIRECTOR STATISTICAL PROGRAMMING 03/22/2025 8:07 PM Signed This is a [...] she developed pancreatitis. Scheduled f/u appt with Generator [employer]. HISTORY OF PRESENT ILLNESS: Hyperglycemia: - Reports [...] with an orange or apple. - Dinner: Rampart or tuna with broccoli, cauliflower, or [place] sprouts. - Snacks: Granola bars (17 grams [...] as needed (more content not included)... Normal [facility] Comprehensive metabolic 2000 panelon 03-22-2025 Albumin [Mass/Vol] 4.4 g/dL Normal 3.9-4.9 [facility] Comment on above: Order Comment: Speci men Type: BLOOD SPECIMENOrdering Facility: [facility] Address: [address] [place] [address] Performed By: #### 2 4323-8 ####[facility] LABCLIA [id number] [address] [address] [place] [address] [place] ALP [Catalytic activity/Vol] 129 U/L High 34-123 [facility] Comment on above: Order Comment: Speci men Type: BLOOD SPECIMENOrdering Facility: [facility] Address: [address] [place] [address] Performed By: #### 2 4323-8 ####[facility] LABCLIA [id number] [facility] [place] [id number] [place] ALT [Catalytic activity/Vol] 17 U/L Normal 7-38 [facility] Comment on above: Order Comment: Speci men Type: BLOOD SPECIMENOrdering Facility: [facility] Address: [address] [place] [address] Performed By: #### 2 4323-8 ####[facility] LABCLIA [id number] [place] [address] [place] Anion gap [Moles/Vol] 13 mmol/L Normal 8-15 [facility] Comment on above: Order Comment: Speci men Type: BLOOD SPECIMENOrdering Facility: [facility] Address: [address] [place] [address] Performed By: #### 2 4323-8 ####[facility] LABCLIA [id number] [place] [address] [place] AST [Catalytic activity/Vol] 18 U/L Normal 13-35 [facility] Comment on above: Order Comment: Speci men Type: BLOOD SPECIMENOrdering Facility: [facility] Address: [address] [place] [address] Performed By: #### 2 4323-8 ####[facility] LABCLIA [id number] [place] [id number] [place] Bilirubin [Mass/Vol] 0.4 mg/dL Normal 0.2-1.3 [facility] Comment on above: Order Comment: Speci men Type: BLOOD SPECIMENOrdering Facility: [facility] Address: [address] [place] [address] Performed By: #### 2 4323-8 ####[facility] LABCLIA [id number] [facility] [address] [place] [address] [place] Calcium [Mass/Vol] 10.3 mg/dL High 8.5-10.2 [facility] Comment on above: Order Comment: Speci men Type: BLOOD SPECIMENOrdering Facility: [facility] Address: [address] [place] [address] Performed By: #### 2 4323-8 ####[facility] LABCLIA [id number] [place] [id number] [place] Chloride [Moles/Vol] 98 mmol/L Normal 98-107 [facility] Comment on above: Order Comment: Speci men Type: BLOOD SPECIMENOrdering Facility: [facility] Address: [address] [place] [address] Performed By: #### 2 4323-8 ####[facility] LABCLIA [id number] [place] [address] [place] CO2 [Moles/Vol] 24 mmol/L Normal 22-30 [facility] Comment on above: Order Comment: Speci men Type: BLOOD SPECIMENOrdering Facility: [facility] Address: [address] [place] [address] Performed By: #### 2 4323-8 ####[facility] LABCLIA [id number] [place] [id number] [place] Creatinine [Mass/Vol] 0.69 mg/dL Normal 0.58-0.96 [facility] Comment on above: Order Comment: Speci men Type: BLOOD SPECIMENOrdering Facility: [facility] Address: [address] [place], [place] [address] Performed By: #### 2 4323-8 ####[facility] LABCLIA [id number] [facility] [place] [id number] [place] Creatinine and Glomerular filtration rate.predicted panel (S/P/Bld) 94 mL/min/1.73m??? Normal >=60 [facility] Comment on above: Order Comment: Abimbola diaz Type: BLOOD SPECIMENOrdering Facility: [facility] Address: [address] [place] [address] Result Comment: Ana Paula mated Glomerular Filtration [...] actual GFR. Performed By: #### 2 4323-8 ####[facility] LABIA [id number] [place] [address] [place] Glucose [Mass/Vol] 171 mg/dL High 74-99 [facility] Comment on above: Order Comment: Abimbola diaz Type: BLOOD SPECIMENOrdering Facility: [facility] Address: [address] [place] [address] Result Comment: The [place] Diabetes Association (ADA) provides guidance for cutoff [...] Standards of Medical Care in Diabetes 2016, [place] Diabetes Association. Diabetes Care. 2016.39(Suppl 1). Performed By: #### 2 4323-8 ####[facility] LABIA [id number] [place] [address] [place] Potassium [Moles/Vol] 4.3 mmol/L Normal 3.7-5.1 [facility] Comment on above: Order Comment: Speci men Type: BLOOD SPECIMENOrdering Facility: [facility] Address: [address] [place] [address] Performed By: #### 2 4323-8 ####[facility] LABCLIA [id number] [place] [address] [place] Protein [Mass/Vol] 7.4 g/dL Normal 6.3-8.0 [facility] Comment on above: Order Comment: Speci men Type: BLOOD SPECIMENOrdering Facility: [facility] Address: [address] [place] [address] Performed By: #### 2 4323-8 ####[facility] LABCLIA [id number] [place] [address] [place] Sodium [Moles/Vol] 135 mmol/L Low 136-144 [facility] Comment on above: Order Comment: Speci men Type: BLOOD SPECIMENOrdering Facility: [facility] Address: [address] [place] [address] Performed By: #### 2 4323-8 ####[facility] LABIA [id number] [place] [address] [place] Urea nitrogen [Mass/Vol] 12 mg/dL Normal 7-21 [facility] Comment on above: Order Comment: Speci men Type: BLOOD SPECIMENOrdering Facility: [facility] Address: [address] [place] [address] Performed By: #### 2 4323-8 ####[facility] LABIA [id number] [place] [id number] [place] GAD65 Ab Ser-aCncon 03-22-20 25 Glutamate decarboxylase 65 Ab Qn (S) <5.0 Normal <=5.0 [facility] Comment on above: Order Comment: Speci men Type: BLOOD SPECIMENOrdering Facility: [facility] Address: [address] [place] [address] Result Comment: Anti -glutamic acid decarboxylase antibody [...] is required. Performed By: #### 1 3926-1 ####[facility] LABIA [id number] [place] [address] [place] Glutamate decarboxylase 65 A b Qn (S)on 03-22-2025 GLUTAMIC ACID DECARBOXYLAS AB QUALITATIVE Negative Normal Negative [facility] Comment on above: Order Comment: Abimbola diaz Type: BLOOD SPECIMENOrdering Facility: [facility] Address: [address] [place] [address] Performed By: #### 1 3926-1 ####[facility] [id number] [place] [address] [place] HbA1c (Bld)on 03-22-2025 Average glucose Estimated from glycated hemoglobin (Bld) [Mass/Vol] 183 mg/dL Normal [facility] Comment on above: Order Comment: Abimbola diaz Type: BLOOD SPECIMENOrdering Facility: [facility] Address: [address] [place] [address] Result Comment: eAG: (Estimated average glucose) is a calculated value from HgbA1c and is sales representative jewelry of the average blood glucose level in the last 2-3 month period. Performed By: #### 5 5454-3 ####[facility] [id number] [place] [address] [place] HbA1c (Bld) [Mass fraction] 8.0 % High 4.3-5.6 [facility] Comment on above: Order Comment: Abimbola diaz Type: BLOOD SPECIMENOrdering Facility: [facility] Address: [address] [place] [address] Result Comment: [place] Diabetes Association guidelines indicate that patients with HgbA1c in the range 5.7-6.4% are at increased risk for development of diabetes, and intervention by lifestyle modification may be beneficial. HgbA1c greater or equal to 6.5% is considered diagnostic of diabetes. Performed By: #### 5 5454-3 ####[facility] LABCLIA [id number] [address] OF [facility] INSULINOMA ASSOCIATED ANTIBO DY 2on 03-22-2025 IA 2 ANTIBODY BLOOD <5.4 Normal <7.5 [facility] Comment on above: Order Comment: Speclillian diaz Type: BLOOD SPECIMENOrdering Facility: [facility] Address: [address] [place] [address] Result Comment: Anti -insulinoma associated antigen 2 (IA-2) antibody test is used as an aid in diagnosis of type I diabetes mellitus, to predict the risk of progression to type I diabetes mellitus among susceptible individuals, and to predict the necessity of insulin therapy in adult-onset diabetes mellitus. Clinical correlation is required. Performed By: #### I A2AB ####[facility] LABCLIA [id number] [address] ISLET CELL ABon 03-22-2025 ISLET CELL AB <1:4 Normal <1:4 [facility] Comment on above: Order Comment: Abimbola diaz Type: BLOOD SPECIMENOrdering Facility: [facility] Address: [address] [place] [address] Result Comment: INTE RPRETIVE INFORMATION: Islet Cell [...] developed and its performance characteristics determined by [facility]. It has not been cleared or approved by the [place] Food and Drug Administration. This test was performed in a CLIA certified laboratory and is intended for clinical purposes. Performed By: [facility] [address] [place] [address] [employer]: Suresh Rothman MD, PhD CLIA Number: [id number] Performed By: #### I SLET, [id number] ####[facility] [id number] [place] [address] ZINC TRANSPORTER 8 ANTIBODYo n 03-22-2025 ZINC TRANSPORTER 8 ANTIBODY <10.0 Normal 0.0-15.0 [facility] Comment on above: Order Comment: Speci men Type: BLOOD SPECIMENOrdering Facility: [facility] Address: [facility] [place] [address] Result Comment: INTE RPRETIVE INFORMATION: Zinc Transporter 8 Antibody A value greater than 15.0 Kronus Units/mL is considered positive for the Zinc Transporter 8 Antibody (ZnT8). Kronus Units are arbitrary. Kronus Units = U/mL. This assay is intended for the semi-quantitative determination of antibodies to ZnT8 in human serum. Results should be interpreted within the context of clinical symptoms. Performed By: [facility] [address] [place] [id number] [employer]: Suresh Rothman MD, PhD CLIA Number: [id number] Performed By: #### Lillian SLEKarina, ZNT8AB ####[facility] [facility] [id number] [place] [address] [facility] 03-18-2025 [facility]) DEONTE BLANCO ([id number]) 1955 F Date Time Provider Department 03/18/25 PREET FARRAR [facility] During your visit today, we recorded the following information about you: Josie Starks, RN 03/18/2025 8:57 AM Signed Patient was told to contact office today with update on symptoms. Patient continues to have nausea today. Vomiting x 1 (yogurt) as that is all she is currently eating. No diarrhea. Patient did take insulin this morning and oral medication. FBS 196. Patient asking if Zofran could be sent to [facility]. Pended previous order of Zofran. Message [...] Provider: CONCHIS JACOB MD Hudson, M Robin, OLVIN 03/20/2025 11:18 AM Signed Pt phoned to [...] she developed pancreatitis. Scheduled f/u appt with Generator Operator [employer]. Preet Farrar DO 03/20/2025 5:24 PM Signed Patient also has the option to meet with the pharmacist here at [facility] to discuss medication concerns and options for [...] Reason for Visit: Patient Update [1234] Visit Diagnosis:Uncontrolled type 2 diabetes mellitus with hyperglycemia (HCC) [...] mg tablet (more content not included)... Normal [facility] 03-16-2025 [facility] DEONTE BLANCO ([id number]) 1955 F Date Time Provider Department 03/16/25 PREET FARRAR [facility] During your visit today, we recorded the following information about you: Yesi Kitchen RN 03/16/2025 2:24 PM Signed Pt calling [...] her insulin shot tomorrow morning? Liliana Bennett APRN.[facility] 03/16/2025 2:56 PM Signed If patient doesn't recall if she took the insulin or not, she should not take it and wait until tomorrow. Better for her to be high than to bottom out. Thank you Sofia Rodriguez MA 03/16/2025 3:48 PM Signed Left message to return call Soifa Jennifer LANDEN Giin Martinez LPN 03/17/2025 9:22 AM Signed Spoke with [...] Fully Assessed Reason for Visit: Patient Question [8347] Cmt: re: insulin Visit Diagnosis:Ischemic stroke without [...] - Uncontrolled E11.65 Insulin: Yes - Insulin Peyton, Disposable, (BD ULTRA-FINE MARIA T PEN NEEDLE) [...] [F41.8] 10/12/2018 (more content not included)... Normal [facility] CNOVon 02-17-2025 CNOV Office Visit (FAMPWS ) DEONTE BLANCO ([id number]) 1955 F Date Time Provider Department 02/17/25 3:40 PM PREET FARRARPYASMEEN During your visit today, we [...] conditions. Concerns today: She was seen by Clinical Trial Leader Dr. Isaac and states that she didn't [...] differently: Take (more content not included)... Normal [facility] CTA Abdomen W/WO Contraston 02-16-2025 CTA Abdomen W/WO Contrast [facility] [address] [place] [id number] CTA Abdomen W/WO Contrast MR#: [id number] Acct: [id number] Name: DEONTE BLANCO Rep #: [id number] : 1955 F 69 From: Catie abbott MD PCP: Dr. Preet Farrar, DO Status: [facility] CLI Study: CTA Abdomen W/WO Contrast Date of Exam: Exam# [id number] Ordering Dr: Julien Reyna MD ADDENDUM by Dr. Catie Covarrubias MD on 05/04/25 at 0203 Comparison is made with a prior exam performed on 04/09/2022. Bilateral stenosis of the proximal aspect of the renal arteries does not exceed 20%. No evidence of hemodynamically significant stenosis. No significant change is noted since the prior exam. Reading Location: [id number] 05/04/25 0204 Date cc: Dr. Julien Reyna MD; Dr. Preet Farrar DO * Signed PROCEDURE: CTA ABDOMEN W/WO CONTRAST 02/16/2025 REASON FOR EXAM: EVAL RENAL ARTERY STENOSIS TECHNIQUE: CTA imaging of the abdomen and pelvis with intravenous contrast. Multiplanar and multisequence images were obtained. CONTRAST: Isovue 370 VOLUME: [...] no left renal mass. There are no left renal calculi. There is no left hydronephrosis. Normal visualized left ureter. Normal visualized stomach. Normal small intestine. Normal colon. The appendix is visualized and appears normal. There is no demonstrated peritoneal fluid. Normal inferior vena cava. Normal retroperitoneum. CT/CTA Abdomen W/WO Contrast IMPRESSION: No evidence of hemodynamically significant stenosis of the renal arteries. Reading Location: [place] [address] CC: Dr. Julien Reyna MD; Dr. Preet Farrar DO Sales Special Agent: Signed Normal [facility] CNNURSEon 02-14-2025 CNNURSE Nurse Visit (ENDIMT) SUSANADEONTE DEE ([id number]) 1955 F Date Time Provider Department 02/14/25 1:00 PM RODRIGO HOLGUIN During your visit today, we recorded the following information about you: Rodrigo Holguin RN 02/14/2025 1:17 PM Signed DIABETES CARE AND EDUCATION VISIT Location: [place] Type of visit: In person individual PATIENT'S [...] SIGNATURE: Rodrigo Holguin RN PATIENT NAME: Deonte Chandlerrosio DATE: February 14, 2025 TIME: 12:48 PM Referring Provider: BEAN ISAAC [[id number]] Allergies As of Date: 02/14/2025 Noted Allergy [...] complication, with long-term current use of insulin ([facility]) [E11.59, Z79.4] Order(s):CONSULT TO DIABETES EDUCATION DSME [[id number]] Order #: [id number]: 2 Prescriptions as of 02/14/2025 - ARMOUR [...] on fasting at 8 am - Insulin Peyton, Disposable, (BD ULTRA-FINE MARIA T PEN NEEDLE) [...] Dx: es (more content not included)... Normal [facility] CNOVon 02-09-2025 CNOV Office Visit (ENWSTR ) DEONTE BLANCO ([id number]) 1955 F Date Time Provider Department 02/09/25 [...] carbs . Lifestyle -Exercise: 30 mins on RVX daily -Diet: Breakfast: 3 eggs, 1 slice [...] alopecia, excessiv (more content not included)... Normal [facility] GLOOKO ON DEMANDon 5 Ordered by an unspec ified provider. [facility] Ordered by an unspec ified provider. [facility] Senior Biostatistician Office Visit Reporton 02-06-2025 Senior Biostatistician Office Visit Report [address], [address] [place] [address] OFFICE VISIT Date of Service: 02/06/25 MR#: [id number] Acct: [id number] Name: DEONTE BLANCO Rep #: [id number] : 1955 Provider: Dr. Anushka nolan MD Age/Sex: 69/F Location: [facility] [place] Status: Signed Intake Vital Signs 09/13/24 13:58 01/26/25 08:18 02/06/25 10:53 Height 5 ft 5 ft 5 ft Weight: 187 lb 4 oz BMI 36.6 BP 136/60 H Intake Visit Reasons: 6 wk TVHBS Window Tinter Required: No Is patient in pain?: No Allergies metformin Allergy (Severe, Verified 02/06/25 10:56) Hives prednisone Allergy (Intermediate, Verified 02/06/25 10:56) Itching aspirin Allergy (Verified 02/06/25 10:56) mouth swelling gluten Allergy (Verified 02/06/25 10:56) Abd cramps/diarrhea ibuprofen Allergy (Verified 02/06/25 10:56) mouth swelling Sulfa (Sulfonamide Antibiotics) Allergy (Verified 02/06/25 10:56) pt can't remember Medications ???Medication ???Instructions ???Recorded ???Confirmed ???Type ergocalciferol (vitamin D2) 1,250 50,000 unit PO MOFR SUPPLEMENT 02/06/25 History mcg (50,000 unit) capsule thyroid (pork) 120 mg tablet 120 tablet PO DAILY THYROID 02/06/25 History clopidogrel 75 mg tablet 75 mg PO DAILY BLOOD THINNER #30 0 11/04/22 02/06/25 Rx tabs carvedilol 6.25 mg tablet 6.25 mg PO BID 03/05/24 02/06/25 H istory pantoprazole 40 mg tablet,delayed 40 mg PO DAILY #30 tabs 05/22/24 02/06/25 Rx release thyroid (pork) 30 mg tablet 30 mg PO MOWEFR 07/21/24 02/06/25 History (Wray Thyroid) insulin glargine 100 unit/mL (3 20 unit subcut DAILY 12/12/2401/26 History mL) subcutaneous pen (Lantus Solostar U-100 Insulin) spironolactone 25 mg tablet 25 mg PO BID 12/12/24 02/06/25 His tory elderberry fruit 200 mg capsule 1,000 mg PO DAILY 12/13/24 5 History atorvastatin 40 mg tablet 40 mg PO QDAY #90 tabs 01/26/25 Rx dulaglutide 0.75 mg/0.5 mL 0.75 mg subcut QWEEK 01/26/2501/26 History subcutaneous pen injector (Trulicity) glimepiride 2 mg tablet 2 mg PO BID 01/26/25 02/06/25 Hist ory Is last menstrual period known: No Post menopausal: No Patient : No : No Control Method: hysterectomy PFSH Medical History Cardiology follow-up encounter History [...] Intractable back pain Surgical History History of total vaginal hysterectomy (TVH) History of esophagogastroduodenoscopy (EGD) Hx of colonoscopy History of hysteroscopy History of back surgery ( 2019) Hx of umbilical hernia repair S/P tubal ligation S/P cholecystectomy S/P tonsillectomy and adenoidectomy History of lumbar fusion History of lumbar discectomy Family History Mother Heart disease Alzheimers disease Father Heart disease Hypertension CAD (coronary artery disease) Myocardial infarction Thyroid disorder Diabetes Sister Cancer Social History adopted: No household members: none number of children: 3 sexually active: Yes Smoking Status: Former smoker alcohol intake: never substance use type: marijuana and other details: Medical cannabis, usually daily. seatbelt use: always do you feel safe at home: Yes HPI 6 wk TVHBS Details: DEONTE BLANCO is a 69 year old who presents for postop doing well now back to normal activities History 3 Elective abortions Hx Para 3 Spontaneous abortions Hx # Term Pregnancies Ectopic pregnancies Hx # Pregnancies Multiple births # of living children 3 (more content not included)... Normal [facility] Cardiology Visit Reporton Cardiology Visit Report [facility] [address] [place] [address] OFFICE VISIT Date of Service: 01/26/25 MR#: [id number] Acct: [id number] Name: DEONTE BLANCO Rep #: [id number] : 1955 Provider: Dr. Julien Reyna MD Age/Sex: 69/F Location[place] [facility] Status: Signed HPI HPI History of Present Illness Details: This lady with history of mild to moderate aortic valve stenosis, hypertension, renal artery stenosis, dyslipidemia and diabetes mellitus is here for follow-up visit. Denies any complaints. No chest pains. No shortness of breath. No palpitations. No orthopnea or PND. No ankle edema. Intake Vital Signs 01/09/25 11:13 01/26/25 08:18 Height 5 ft 5 ft Weight: 185 lb BMI 36.1 BP 144/82 H Blood Pressure Location Lt brachial Position Sitting Respiration 18 Pulse 82 Pulse Source NIBP Intake Visit Reasons: 6 M FU Window Tinter Required: No Accompanied by: Self Is patient in pain?: No Allergies metformin Allergy (Severe, Verified 01/26/25 14:11) Hives prednisone Allergy (Intermediate, Verified 01/26/25 14:11) Itching aspirin Allergy (Verified 01/26/25 14:11) mouth swelling gluten Allergy (Verified 01/26/25 14:11) Abd cramps/diarrhea ibuprofen Allergy (Verified 01/26/25 14:11) mouth swelling Sulfa (Sulfonamide Antibiotics) Allergy (Verified 01/26/25 14:11) pt can't remember Medications ???Medication ???Instructions ???Recorded ???Confirmed ???Type ergocalciferol (vitamin D2) 1,250 50,000 unit PO MOFR SUPPLEMENT 01/26/25 History mcg (50,000 unit) capsule thyroid (pork) 120 mg tablet 120 tablet PO DAILY THYROID 01/26/25 History atorvastatin 80 mg tablet 80 mg PO QHS cholesterol #30 tabs 11/04/22 01/26/25 Rx clopidogrel 75 mg tablet 75 mg PO DAILY BLOOD THINNER #30 0 11/04/22 01/26/25 Rx tabs carvedilol 6.25 mg tablet 6.25 mg PO BID 03/05/24 01/26/25 H istory pantoprazole 40 mg tablet,delayed 40 mg PO DAILY #30 tabs 05/22/24 01/26/25 Rx release thyroid (pork) 30 mg tablet 30 mg PO MOWEFR 07/21/24 01/26/25 History (Wray Thyroid) insulin glargine 100 unit/mL (3 20 unit subcut DAILY 12/12/2410/22 History mL) subcutaneous pen (Lantus Solostar U-100 Insulin) spironolactone 25 mg tablet 25 mg PO BID 12/12/24 01/26/25 His tory elderberry fruit 200 mg capsule 1,000 mg PO DAILY 12/13/24 5 History dulaglutide 0.75 mg/0.5 mL 0.75 mg subcut QWEEK 01/26/2510/22 History subcutaneous pen injector (Trulicity) glimepiride 2 mg tablet 2 mg PO BID 01/26/25 01/26/25 Hist ory Ejection fraction %: 65 Have you fallen in the past year?: No PFSH Medical History Abnormal EKG Ambulatory dysfunction Anxiety Cardiology follow-up encounter Celiac disease Diabetes mellitus Elevated troponin Encounter for screening examination for sexually transmitted disease Fatty liver First degree AV block Former tobacco use GERD (gastroesophageal reflux disease) High cholesterol History of echocardiogram History of stress test HPV test positive Hypertension Hypertension Hyponatremia Hypothyroidism Insulin dependent diabetes mellitus Intractable back pain Irritable bowel syndrome 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 Ischemic stroke Leg cramps Lumbar disc herniation with radiculopathy Lumbar spinal stenosis Marijuana use Muscle spasm Near syncope Occlusion of left internal carotid artery Pelvic pain Polyneuropathy PONV (postoperative nausea and vomiting) Post-menopausal Prolonged QT interval Simple endometrial hyperplasia without atypia Stroke/cerebrovascular accident (11/02/22) Thickened endometrium Thyroid disease Ulcerative colitis Ulcerative colitis Vitamin D deficiency Wears glasses Surgical History History of back surgery ( 2019) History of esophagogastroduodenoscopy (EGD) History of hysteroscopy History of lumbar discectomy History of lumbar fusion History of total vaginal hysterectomy (TVH) Hx of colonoscopy Hx of umbilical hernia repair S/P cholecystectomy S/P tonsillectomy and adenoidectomy S/P tubal ligation Family History Mother Heart disease Alzheimers disease Father Heart disease Hypertension CAD (coronary artery disease) Myocardial infarction Thyroid disorder Diabetes Sister Cancer Social History adopted: No household members: none number of children: 3 sexually active: Yes Smoking Status: Former smoker alcohol intake: never substance use type: marijuana and other details: Medical cannabis, usually santos (more content not included)... Normal [facility] Senior Biostatistician Office Visit Reporton 01-09-2025 Senior Biostatistician Office Visit Report [facility] [address], [address] [place] [address] OFFICE VISIT Date of Service: 01/09/25 MR#: [id number] Acct: [id number] Name: DEONTE BLANCO Rep #: [id number] : 1955 Provider: Dr. Anushka nolan MD Age/Sex: 69/F Location: [facility] [place] Status: Signed Intake Vital Signs 09/13/24 13:58 12/27/24 18:19 01/09/25 11:11 01/09/25 11:13 Height 5 ft 5 ft 5 ft 5 ft Weight: 185 lb 6 oz BMI 36.1 BP 145/87 H Intake Visit Reasons: 2 wk TVHBS Window Tinter Required: No Is patient in pain?: No Allergies metformin Allergy (Severe, Verified 12/27/24 07:03) Hives prednisone Allergy (Intermediate, Verified 12/27/24 07:03) Itching aspirin Allergy (Verified 12/27/24 07:03) mouth swelling gluten Allergy (Verified 12/27/24 07:03) Abd cramps/diarrhea ibuprofen Allergy (Verified 12/27/24 07:03) mouth swelling Sulfa (Sulfonamide Antibiotics) Allergy (Verified 12/27/24 07:03) pt can't remember Medications ???Medication ???Instructions ???Recorded ???Confirmed ???Type ergocalciferol (vitamin D2) 1,250 50,000 unit PO MOFR SUPPLEMENT 12/27/24 History mcg (50,000 unit) capsule thyroid (pork) 120 mg tablet 120 tablet PO DAILY THYROID 12/27/24 History atorvastatin 80 mg tablet 80 mg PO QHS cholesterol #30 tabs 11/04/22 12/27/24 Rx clopidogrel 75 mg tablet 75 mg PO DAILY BLOOD THINNER #30 0 11/04/22 12/27/24 Rx tabs carvedilol 6.25 mg tablet 6.25 mg PO BID 03/05/24 12/27/24 H istory pantoprazole 40 mg tablet,delayed 40 mg PO DAILY #30 tabs 05/22/24 12/27/24 Rx release sitagliptin phosphate 100 mg 100 mg PO QDAY 07/07/24 12/27/24 H istory tablet (Januvia) thyroid (pork) 30 mg tablet 30 mg PO MOWEFR 07/21/24 12/27/24 History (Wray Thyroid) glimepiride 2 mg tablet 3 mg PO BID 08/10/24 12/27/24 Hist ory insulin glargine 100 unit/mL (3 20 unit subcut DAILY 12/12/2410/22 History mL) subcutaneous pen (Lantus Solostar U-100 Insulin) spironolactone 25 mg tablet 25 mg PO BID 12/12/24 12/27/24 His tory elderberry fruit 200 mg capsule 1,000 mg PO DAILY 12/13/24 5 History Is last menstrual period known: No Post menopausal: Yes Patient : No : No PFSH Medical History Cardiology follow-up encounter History [...] Intractable back pain Surgical History History of total vaginal hysterectomy (TVH) History of esophagogastroduodenoscopy (EGD) Hx of colonoscopy History of hysteroscopy History of back surgery ( 2019) Hx of umbilical hernia repair S/P tubal ligation S/P cholecystectomy S/P tonsillectomy and adenoidectomy History of lumbar fusion History of lumbar discectomy Family History Mother Heart disease Alzheimers disease Father Heart disease Hypertension CAD (coronary artery disease) Myocardial infarction Thyroid disorder Diabetes Sister Cancer Social History adopted: No household members: none number of children: 3 sexually active: Yes Smoking Status: Former smoker alcohol intake: never substance use type: marijuana and other details: Medical cannabis, usually daily. seatbelt use: always do you feel safe at home: Yes HPI 2 wk TVHBS Details: DEONTE BLANCO is a 69 year old who presents for postop visit doing well only took tylenol postop for pain. Her bowel function is returning okay. History 3 Elective abortions Hx Para 3 Spontaneous abortions Hx # Term Pregnancies Ectopic pregnancies Hx # Pregnancies Multiple births # of l (more content not included)... Normal [facility] 12-29-2024 CNPN Telephone (FAMPWS) DEONTE BLANCO ([id number]) 1955 F Date Time Provider Department 12/29/24 PREET FARRAR FAMPWS During your visit today, [...] stated the call had been handled through [employer] chat. No notes in triage with what [...] Fully Assessed Reason for Visit: Patient Question [3917] Prescriptions as of 01/03/2025 - dulaglutide (TRULICITY) [...] on fasting at 8 am - Insulin Peyton, Disposable, (BD ULTRA-FINE MARIA T PEN NEEDLE) [...] by vaibhav (more content not included)... Normal [facility] Anion gap in Serum or Plasma Ordered By: Anushka Isaac on 12-28-2024 Anion gap [Moles/Vol] 13 mmol/L 5- [facility] BUN/creatinine ratioOrdered By: Anushka Isaac on 12-28-2024 Urea nitrogen/Creatinine [Mass ratio] 25.4 mg/mg High 10-20 [facility] Basic Metabolic Profile (BMP )on 12-28-2024 BUN/CRE 25.4 RATIO High 10-20 [facility] Comment on above: Performed By: #### L 100.0500, L500.2500 #### [facility] [address] [place], [address] Calcium [Mass/Vol] 9.0 mg/dL Normal 7.6-11.[address] [facility] Comment on above: Performed By: #### L 100.0500, L500.2500 #### [facility] [address] [place], [address] Chloride [Moles/Vol] 95 mmol/L Low 98-108 [facility] Comment on above: Performed By: #### L 100.0500, L500.2500 #### [facility] [address] [place], [address] CO2 [Moles/Vol] 24.0 mmol/L Normal 21.0-32.0 [facility] Comment on above: Performed By: #### L 100.0500, L500.2500 #### [facility] [address] [place], [address] Creatinine [Mass/Vol] 0.62 mg/dL Low 0.70-1.20 [facility] Comment on above: Performed By: #### L 100.0500, L500.2500 #### [facility] [address] [place], [address] ECRCL 64.10 ml/min Normal 50-250 [facility] Comment on above: Performed By: #### L 100.0500, L500.2500 #### [facility] [address] [place], [address] GAP 13 Normal 5-15 [facility] Comment on above: Performed By: #### L 100.0500, L500.2500 #### [facility] [address] [place], [address] GFR/1.73 sq M.predicted among non-blacks MDRD (S/P/Bld) [Vol rate/Area] 97 mL/min/{1.73_m2} Normal >60 [facility] Comment on above: Result Comment: mL/m in/1.73m2 CKD-EPI Creatinine Equation (2020) Performed By: #### L 100.0500, L500.2500 #### [facility] [address] [place], [address] Glucose [Mass/Vol] 170 mg/dL High 70-[address] [facility] Comment on above: Performed By: #### L 100.0500, L500.2500 #### [facility] [address] [place], [address] Potassium [Moles/Vol] 3.8 mmol/L Normal 3.3-5.1 [facility] Comment on above: Performed By: #### L 100.0500, L500.2500 #### [facility] [address] [place], [address] Sodium [Moles/Vol] 132 mmol/L Low 133-[address] [facility] Comment on above: Performed By: #### L 100.0500, L500.2500 #### [facility] [address] [place], [address] Urea nitrogen [Mass/Vol] 16 mg/dL Normal 4-19 [facility] Comment on above: Performed By: #### L 100.0500, L500.2500 #### [facility] [address] [place], [address] Bedside Glucoseon 12-28-2024 FINGERSTICK GLU 181 mg/dL High 74-106 [facility] Comment on above: Result Comment: CARIN DYER OF PATIENT CARE PER NURSING PROTOCOL Performed By: #### L 501.080 #### [facility] [address] [place], [address] FINGERSTICK GLU 183 mg/dL High 74-106 [facility] Comment on above: Result Comment: CARIN DYER OF PATIENT CARE PER NURSING PROTOCOL Performed By: #### L 501.080 #### [facility] [address] [place], [address] CBC-Complete Blood Cnt No Di ffon 12-28-2024 Erythrocyte distribution width (RBC) [Ratio] 13.2 % Normal 11.6-14.6 [facility] Comment on above: Performed By: #### L 100.0500, L500.2500 #### [facility] [address] [place], [address] Hematocrit (Bld) [Volume fraction] 38.7 % Normal 37-47 [facility] Comment on above: Performed By: #### L 100.0500, L500.2500 #### [facility] [address] [place], [address] Hemoglobin (Bld) [Mass/Vol] 13.4 g/dL Normal 12.0-15.0 [facility] Comment on above: Performed By: #### L 100.0500, L500.2500 #### [facility] [address] [place], [address] MCH (RBC) [Entitic mass] 30.0 pg Normal 27.0-32.0 [facility] Comment on above: Performed By: #### L 100.0500, L500.2500 #### [facility] [address] [place], [address] MCHC (RBC) [Mass/Vol] 34.6 g/dL Normal 32-36 [facility] Comment on above: Performed By: #### L 100.0500, L500.2500 #### [facility] [address] [place], [address] MCV (RBC) [Entitic vol] 86.8 fL Normal 81-99 [facility] Comment on above: Performed By: #### L 100.0500, L500.2500 #### [facility] [address] [place], [id number] Platelet mean volume (Bld) [Entitic vol] 9.8 fL Normal 6.2-12.0 [facility] Comment on above: Performed By: #### L 100.0500, L500.2500 #### [facility] [address] [place], [id number] Platelets (Bld) [#/Vol] 332 10*3/uL Normal 150-450 [facility] Comment on above: Performed By: #### L 100.0500, L500.2500 #### [facility] [address] [place], [id number] RBC (Bld) [#/Vol] 4.46 10*6/uL Normal 4.2-5.4 [facility] Comment on above: Performed By: #### L 100.0500, L500.2500 #### [facility] [address] [place], [id number] RDW SD 41.9 fl Normal 35.1-43.9 [facility] Comment on above: Performed By: #### L 100.0500, L500.2500 #### [facility] [address] [place], [id number] WBC (Bld) [#/Vol] 16.8 10*3/uL High 4.4-11.0 [facility] Comment on above: Performed By: #### L 100.0500, L500.2500 #### [facility] [address] [place], [id number] Carbon dioxide, total [Moles /volume] in Central venous bloodOrdered By: Anushka Isaac on 12-28-2024 CO2 [Moles/Vol] 24.0 mmol/L 21.0-32.0 [facility] Chloride assayOrdered By: Ton Isaac on 12-28-2024 Chloride [Moles/Vol] 95 mmol/L Low 98-108 [facility] Erythrocyte distribution wid th (RBC) [Ratio]Ordered By: Anushka Isaac on 12-28-2024 Erythrocyte distribution width (RBC) [Entitic vol] 41.9 fL 35.1-43.9 [facility] Erythrocyte distribution wid th ratioOrdered By: Anushka Isaac on 12-28-2024 Erythrocyte distribution width (RBC) [Ratio] 13.2 % 11.6-14.6 [facility] Erythrocyte distribution wid th standard deviationOrdered By: Anushka Isaac on 12-28-2024 Erythrocyte distribution width (RBC) [Ratio] 41.9 fl 35.1-43.9 [facility] Estimation of creatinine siddhartha aranceOrdered By: Anushka Isaac on 12-28-2024 Estimated Creatinine Clearance Calc 64.10 ml/min 50-250 [facility] GFR/1.73 sq M.predicted abdulaziz g non-blacks MDRD (S/P/Bld) [Vol rate/Area]Ordered By: Anushka Isaac on 12-28-2024 Estimated GFR (MDRD) Non-Af Amer 97 >60 [facility] Comment on above: mL/min/1.73m2 CKD-EP I Creatinine Equation (2020) Glomerular filtration rate ( GFR) estimation/1.73 sq m using serum, plasma, or whole bOrdered By: Anushka Isaac on 12-28-2024 GFR/1.73 sq M.predicted among non-blacks MDRD (S/P/Bld) [Vol rate/Area] 97 mL/min/{1.73_m2} >60 [facility] Comment on above: mL/min/1.73m2 CKD-EP I Creatinine Equation (2020) Glucose measurement at bedsi deOrdered By: Anushka Isaac on 12-28-2024 Bedside Glucose (Misc Panel) 181 mg/dL High 74-106 [facility] Comment on above: MANAGEMENT OF PATIEN T CARE PER NURSING PROTOCOL Glucose [Mass/Vol] 181 mg/dL High 74-[address] [facility] Comment on above: MANAGEMENT OF PATIEN T CARE PER NURSING PROTOCOL Hematocrit Auto (Bld) [Volum e fraction]Ordered By: Anushka Isaac on 12-28-2024 Hematocrit (Bld) [Volume fraction] 38.7 % 37-47 [facility] Hemoglobin measurementOrdere d By: Anushka Isaac on 12-28-2024 Hemoglobin (Bld) [Mass/Vol] 13.4 g/dL 12.0-15.0 [facility] MCV (mean corpuscular volume ) determinationOrdered By: Anushka Isaac on 12-28-2024 MCV (RBC) [Entitic vol] 86.8 fL 81-99 [facility] Mean corpuscular hemoglobin (MCH) determinationOrdered By: Anushka Isaac on 12-28-2024 MCH (RBC) [Entitic mass] 30.0 pg 27.0-32.0 [facility] Mean corpuscular hemoglobin concentration (MCHC) determinationOrdered By: Anushka Isaac on 12-28-2024 MCHC (RBC) [Mass/Vol] 34.6 g/dL 32-36 [facility] Mean platelet volume determi nationOrdered By: Anushka Isaac on 12-28-2024 Platelet mean volume (Bld) [Entitic vol] 9.8 fL 6.2-12.0 [facility] Platelet countOrdered By: Ton Isaac on 12-28-2024 Platelets (Bld) [#/Vol] 332 10*3/uL 150-450 [facility] Potassium (Unsp spec) [Mass/ Vol]Ordered By: Anushka Isaac on 12-28-2024 Potassium [Moles/Vol] 3.8 mmol/L 3.3-5.1 [facility] Potassium measurement (mass/ volume)Ordered By: Anushka Isaac on 12-28-2024 Potassium (Unsp spec) [Mass/Vol] 3.8 mmol/L 3.3-5.1 [facility] RBC Auto (Bld) [#/Vol]Ordere d By: Anushka Isaac on 12-28-2024 RBC (Bld) [#/Vol] 4.46 10*6/uL 4.2-5.4 [facility] Serum creatinine measurement (mass/volume)Ordered By: Anushka Isaac on 12-28-2024 Creatinine [Mass/Vol] 0.62 mg/dL Low 0.70-1.20 [facility] Serum glucose measurement (m ass/volume)Ordered By: Anushkaangela Isaac on 12-28-2024 Glucose [Mass/Vol] 170 mg/dL High 70-[address] [facility] Serum or plasma calcium mulugeta urement (mass/volume)Ordered By: Anushka Isaac on 12-28-2024 Calcium [Mass/Vol] 9.0 mg/dL 7.6-11.[address] [facility] Serum or plasma urea nitroge n measurement (mass/volume)Ordered By: Anushka Isaac on 12-28-2024 Urea nitrogen [Mass/Vol] 16 mg/dL 4-19 [facility] Sodium levelOrdered By: Elvis Isaac on 12-28-2024 Sodium [Moles/Vol] 132 mmol/L Low 133-[address] [facility] White blood cell (WBC) count Ordered By: Anushka Isaac on 12-28-2024 WBC (Bld) [#/Vol] 16.8 10*3/uL High 4.4-11.0 [facility] Bedside Glucoseon 12-27-2024 FINGERSTICK GLU 231 mg/dL High 74-106 [facility] Comment on above: Result Comment: CARIN GEMENT OF PATIENT CARE PER NURSING PROTOCOL Performed By: #### L 501.080 #### [facility] [address] [facility] [address] FINGERSTICK GLU 299 mg/dL High 74-[address] [place] [address] Comment on above: Result Comment: CARIN GEMENT OF PATIENT CARE PER NURSING PROTOCOL Performed By: #### L 501.080 ####[facility] [address] [facility] [address] FINGERSTICK GLU 305 mg/dL High [address] [place] [address] Comment on above: Result Comment: CARIN GEMENT OF PATIENT CARE PER NURSING PROTOCOL Performed By: #### L 501.080 #### [facility] [address] [facility] [address] FINGERSTICK GLU 243 mg/dL High 74-106 [facility] Comment on above: Result Comment: CARIN GEMENT OF PATIENT CARE PER NURSING PROTOCOL Performed By: #### L 501.080 #### [facility] [address] [place], [address] FINGERSTICK GLU 222 mg/dL High 74-106 [facility] Comment on above: Result Comment: CARIN GEMENT OF PATIENT CARE PER NURSING PROTOCOL Performed By: #### L 501.080 #### [facility] [address] [place], [address] CBC-Complete Blood Cnt No Di ffon 12-27-2024 Erythrocyte distribution width (RBC) [Ratio] 13.2 % Normal 11.6-14.6 [facility] Comment on above: Performed By: #### L 501.080 #### [facility] [address] [place], [address] Hematocrit (Bld) [Volume fraction] 39.2 % Normal 37-47 [facility] Comment on above: Performed By: #### L 501.080 #### [facility] [address] [place], [address] Hemoglobin (Bld) [Mass/Vol] 13.4 g/dL Normal 12.0-15.0 [facility] Comment on above: Performed By: #### L 501.080 #### [facility] [address] [place], [address] MCH (RBC) [Entitic mass] 29.8 pg Normal 27.0-32.0 [facility] Comment on above: Performed By: #### L 501.080 #### [facility] [address] [place], [address] MCHC (RBC) [Mass/Vol] 34.2 g/dL Normal 32-36 [facility] Comment on above: Performed By: #### L 501.080 #### [facility] [address] [place], [id number] MCV (RBC) [Entitic vol] 87.1 fL Normal 81-99 [facility] Comment on above: Performed By: #### L 501.080 #### [facility] [address] [place], [id number] Platelet mean volume (Bld) [Entitic vol] 9.6 fL Normal 6.2-12.0 [facility] Comment on above: Performed By: #### L 501.080 #### [facility] [address] [place], [id number] Platelets (Bld) [#/Vol] 332 10*3/uL Normal 150-450 [facility] Comment on above: Performed By: #### L 501.080 #### [facility] [address] [place], [id number] RBC (Bld) [#/Vol] 4.50 10*6/uL Normal 4.2-5.4 [facility] Comment on above: Performed By: #### L 501.080 #### [facility] [address] [place], [id number] RDW SD 41.4 fl Normal 35.1-43.9 [facility] Comment on above: Performed By: #### L 501.080 #### [facility] [address] [place], [id number] WBC (Bld) [#/Vol] 15.7 10*3/uL High 4.4-11.0 [facility] Comment on above: Performed By: #### L 501.080 #### [facility] [address] [place], [id number] Discharge Instructionon 0 Discharge Instruction [facility] Medical Records Department [address] [place] [id number] Instructions for Home/Discharge Instructions 12/27/24 1215 MR#: [id number] Acct: [id number] Name: DEONTE BLANCO Rep #: [id number] : 1955 69 From: Anushka Isaac MD PCP: Dr. Preet Farrar, DO Status:REG SDC Discharge Instructions Diet Discharge Diet: No restrictions [...] be discussed in further detail at your follow-up appointment, if applicable. Discharge Plan Admission Attending Provider: Anushka Isaac Primary Care Provider: Preet Farrar Instructions Print Language: Finnish Discharge Orders/Prescriptions Prescriptions: New oxycodone-acetaminophen [Percocet] 5-325 [...] pen 20 unit subcut DAILY thyroid (pork) [Wray Thyroid] 30 mg tablet 30 mg PO MOWEFR elderberry fruit 200 mg capsule 1,000 mg PO DAILY Referrals / Follow Up: Preet Farrar DO [Primary Care Provider] - Disposition Disposition (needs filled in before D/C Order can be placed): Home, Self Care 12/27/24 1217 Anushka Isaac MD CC: Dr. Preet Farrar DO Signed [facility] MR/POSTOP.ANEon 12-27-2024 MR/POSTOP.[facility] Medical Records Department [address] [place] [address] Anesthesia Postop Eval I 12/27/24 1004 MR#: [id number] Acct: [id number] Name: DEONTE BLANCO Rep #: [id number] : 1955 69 From: May Cartwright PCP: Dr. Preet Farrar DO Status:REG SDC Y Race: C Location: [place] [address] Anesthesia: Postop Eval I Current Vital Signs [...] document: Postop Eval 1 completed: Yes 12/27/24 100 Date May Woods Signature: Date CC: Signed [facility] MR/[id number] 12-27-2024 MR/POSTOPAN2 [facility] Medical Records Department [address] [place] [address] Anesthesia Postop Eval II 12/27/24 1116 MR#: [id number] Acct: [id number] Name: DEONTE BLANCO Rep #: [id number] : 1955 69 From: Mati Ervin MD PCP: Dr. Preet Farrar, DO Status:REG SDC Y Race: C Location: [place] [address] Anesthesia Postop Eval I Sum Postop Eval Completion status Anesthesia document: Postop Eval 1 completed: Yes Anesthesia Postop Eval I Summary Anesthesia Postop Eval I Summary: Anesthesia Postop Eval I: Assessment Summary Airway patent Yes 12/27/24 10:05 CORRECTION OFFICER SUPERVISOR.GDOTT Spontaneous unlabored Yes 12/27/24 10:05 CORRECTION OFFICER SUPERVISOR.GDOTT respirations Mental status Awake,Calm 12/27/24 10:05 CORRECTION OFFICER SUPERVISOR.GDOTT nausea No 12/27/24 10:05 CORRECTION OFFICER SUPERVISOR.GDOTT Vomiting No 12/27/24 10:05 CORRECTION OFFICER SUPERVISOR.GDOTT Anesthesia Postop Eval I: Fluid Summary Crystalloid volume administer 700 12/27/24 10:05 CORRECTION OFFICER SUPERVISOR.GDOTT (ml) Colloids volume administered ( ml) Blood Product volume administered (ml) Total IV fluid infused 700 12/27/24 10:05 CORRECTION OFFICER SUPERVISOR.GDOTT Anesthesia Postop Eval I: Summary Notes Anesthesia Complication No 12/27/24 10:05 CORRECTION OFFICER SUPERVISOR.GDOTT Anesthesia Complication Comment: Post-operative progress note Anesthesia: Postop Eval II Evaluation Mental status: Awake and Calm Pain Level: 2 nausea: No Vomiting: No Complications Anesthesia Complication: No 12/27/24 1117 Date Mati Ervin MD Cosigner Signature: Date CC: Signed Normal [facility] Operative Reporton 5 Operative Report [facility] Medical Records Department [address] [place] [address] Operative Report 12/27/24 1212 MR#: [id number] Acct: [id number] Name: SCHDEONTE DEE Rep #: [id number] : 1955 69 From: Anushka Isaac MD PCP: Dr. Preet Farrar, DO Status:[facility] Location: [place] [address] Problems Associated Problem List Diagnoses (1) Endometrial hyperplasia without atypia: Multi Select Codes Urinary/Genital Urinary/Genital CPT Codes: 87329 TVH <250 gr uterus Operative Report (Standard) Operative Information Date of Procedure: 12/27/24 Pre-Operative Diagnosis: see problem list details Post-Operative Diagnosis: same Surgery/Procedure Performed: total vaginal hysterectomy leather belt shaper: Yes Personnel Clerk: Isha Valderrama Tasks completed by vector control assistant: Opening closing and Retracting Type of Anesthesia: General [...] was placed in the vagina and the anterior and posterior lip of the cervix was grasped with 2 Linn clamps and circumferentially injected with dilute vasopressin. A circumferential incision was made with a scalpel and the posterior cul-de-sac was entered into sharply and a longneck speculum was placed. The anterior cul-de-sac was also dissected down and entered into sharply and the uterosacral ligaments were clamped cut and suture ligated bilaterally followed by the cardinal ligaments which were Clamped cut and suture ligated bilaterally with 0 Monocryl. The uterus serially descended and progressive bites were taken bilaterally up to the level of the utero-ovarian ligament bilaterally which was clamped transected and double ligated with 0 Monocryl suture and 0 Vicryl free tie. Bilateral ovaries were well visualized and noted be within normal limits and the bilateral fallopian tubes were unable to be completely visualized due to scar tissue and previous surgery so unable to be removed. additional sutures for hemoastsis needed around the cuff and then hemostasis was noted. The vagina was closed with [id number] 0 Vicryl pop offs including the posterior and anterior peritoneum in the reapproximation. Excellent hemostasis was noted. All instruments removed from the vagina clear urine was noted at the end of the procedure. Surgical Findings: nl uterus and ovaries. Complications Complications: No 12/27/24 1215 Cosigner Signature (if applicable): CC: Dr. Preet Farrar DO; Dr. Anushka Isaac MD Signed Normal [facility] Surgery Specimen Level Von 0 12-27-2024 Surgery Specimen Level V Patient Age/Sex Location Account Attending Physician DEONTE BLANCO 69/F MS3 [id number] Dr. Anushka Isaac MD Specimen: [id number] Received: 12/27/24 Status: ROSALINA Leonard Num: [id number] Spec Type: HYSTERECT Subm Dr: Dr. Anushka Isaac MD HEADER OPERATION: ERAS, total vaginal hysterectomy PRE-OP DIAGNOSIS: Endometrial hyperplasia without atypia TISSUE SUBMITTED: A- Uterus, cervix MICROSCOPIC DIAGNOSIS A. Uterus and Cervix, endometrial hyperplasia, hysterectomy: * Cervix: no specific pathologic change. * Endometrium: weakly proliferative endometrium with benign endometrial polyp x2. * Myometrium: leiomyoma x2 (0.6 cm, 0.2 cm). MICROSCOPIC DESCRIPTION Slides are reviewed. GROSS DESCRIPTION A. Received in formalin in a container labeled with the patient's name, date of , and uterus, cervix is a 60.9 g uterus with attached cervix measuring 8.0 cm from fundus to ectocervix, 3.5 cm from anterior to posterior, and 2.8 cm from cornu to cornu. The serosa is spicer-pink, roughened, and appears previously disrupted. The anterior and posterior serosal reflections are shaggy, and definitive orientation is unable to be determined (no uterine or ovarian ligaments are discovered). 1 side is purple-red and more disrupted than the opposite surface. The ectocervix is spicer-pink, smooth, and 3.2 x 2.2 cm. There is a 1.0 x 0.5 cm ovoid os. The paracervical margin is inked black. The specimen is bivalved to reveal a corrugated endocervical canal (3.0 x 1.2 cm) with multiple nabothian cysts (measuring 0.3 cm in greatest dimension). The triangular endometrial cavity is 3.4 cm in length by 2.3 cm in width. There is red-spicer, velvety endometrium ranging from 0.1 to 0.2 cm in thickness. The more disrupted half of the specimen exhibits 2 polyps within the endometrial cavity measuring 0.6 x 0.5 x 0.2 cm and 0.7 x 0.6 x 0.3 cm. Each appears confined to the mucosal surface. The spicer-pink myometrium is grossly unremarkable with an average thickness of 1.3 cm. The less disrupted half of the specimen exhibits a 0.6 x 0.5 x 0.4 cm white whorled nodule with no hemorrhage or necrosis. Rope Tow Operator sections:A1. Cervix and lower uterine segment bisected (inked orange where sections connect) from more disrupted halfA2-3. Cervix and lower uterine segment bisected (inked orange where sections connect) from less disrupted half A4. Full-thickness section of larger polyp with superficial section of remainder of larger polyp (submitted from more disrupted half)A5. Full-thickness section of smaller polyp with Patient Age/Sex Location Account Attending Physician DEONTE BLANCO 69/F MS3 [id number] Dr. Anushka Isaac MD superficial section of remainder of smaller polyp (from more disrupted half)A6. Remainder of endometrium from more disrupted half (superficial sections x 3)A7. Full-thickness section with myometrial nodule from less disrupted halfA8-9. Entirety of endometrial cavity from last disrupted half (superficial sections) submitted sequentially from fundus to lower uterine segment NOTE: Harper ink does not indicate margin [facility] 12-27-2024 CPT:65960 Patient Age/Sex Location Account Attending Physician DEONTE BLANCO 69/F MS3 [id number] Dr. Anushka Isaac MD Signed (signature on file) Dr. Yennifer Rodriguez MD 01/10/25 1138 Normal [facility] Comment on above: Performed By: #### L 501.080 #### [facility] [address] [place], [address] CNPNon 12-21-2024 CNPN Telephone (FAMPWS) DEONTE BLANCO ([id number]) 1955 F Date Time Provider Department 12/21/24 PRE[facility] FARRAR [facility] During your visit today, we recorded the following information about you: Chelo Prasad RN 12/21/2024 9:38 AM Signed Patient calling in and states she needs a prior authorization for her lantus insulin, as ordered 10/07/24, per [facility]. Prior authorization requested for the following medication: Medication: insulin glargine (lantus solostar) 100 unit/mL Provider: Dr. Farrar Insurance Company Name: [facility] Medicare Pharmacy Name: [facility] [place] [facility] Telephone number: [phone] Please call patient once an update has been received. OLVIN Mujica Elizabeth, MA 12/21/2024 10:51 AM Signed No PA needed covered. [facility] and spoke to Mumumío who did for brand lantus and is [...] on fasting at 8 am - Insulin Peyton, Disposable, (BD ULTRA-FINE MARIA T PEN NEEDLE) [...] (HCC) [E1 (more content not included)... [facility] DEONTE BLANCO ([id number]) 1955 F Date Time Provider Department 12/19/24 PREET FARRAR [facility] During your visit today, we recorded [...] hold Plavix. Patient requests call back at [phone]. OLVIN Livingston Jordan L, DO 12/19/2024 5:08 [...] Fully Assessed Reason for Visit: Patient Question [3650] Upcoming Surgery [Other] Prescriptions as of 12/19/2024 [...] on fasting at 8 am - Insulin Peyton, Disposable, (BD ULTRA-FINE MARIA T PEN NEEDLE) [...] ulcerative col (more content not included)... Normal [facility] Electrocardiogram reportOrde red By: Jamel Gray on 12-16-2024 EKG study [facility] Cardiovascular Services [address] [place] [address] 12 Lead EKG 12/15/24 1226 MR#: [id number] Acct: [id number] Name: DEONTE BLANCO Rep #:[id number] : 1955 69 From: Jamel Gray MD Attending Dr: Dr. Anushka Isaac MD Status: PRE SDC Ordering Dr: Anushka Isaac MD Cecil e: 12/15/24 [place] [facility] Sex: F C Admitted: Test Reason : PREOP Blood Pressure : */* mmHG Vent. Rate : 67 BPM Atrial Rate : 67 BPM P-R Int : 208 ms QRS Dur : 86 ms QT Int : 390 ms P-R-T Axes : * 8 2 degrees QTcB Int : 412 ms Normal sinus rhythm Normal ECG Confirmed by JAMEL GRAY MD ([id number]), order editor ANNMARIE GANT ([id number]) on 55:50:15 AM Referred By: Anushka Isaac Confirmed By: JAMEL GRAY MD 12/16/24 0550 Date _ Jamle Gray MD CC: Dr. Preet Farrar DO; Dr. Anushka Isaac MD ~ [facility] Work Phone: MR/PATTom 12-16-2024 /[facility] Medical Records Department [address] [place] [address] PAT - Anesthesia 12/16/24 1201 MR#: [id number] Acct: [id number] Name: DEONTE BLANCO Rep #: [id number] : 1955 69 From: Ezio Tavera MD PCP: Dr. Preet Farrar, Status:PRE SD Y Race: C Location: [facility] Pre-Assessment Diagnosis/Proposed Procedure Planned Operative Procedure(s): HYSTERECTOMY TL BSO Anesthesia History Anesthesia History - video surveillance technician: Anesthesia History - video surveillance technician Hx Hospitalization No 12/13/24 09:23 Any Problems With Anesthesia Yes: N,V 12/13/24 09:23 Cholinesterase deficiency No 12/13/24 09:23 You/Your Family Experience No 12/13/24 09:23 fever (hyperthermia) with Relationship Recent Exposure to Contagious No 07/26/24 06:31 Disease Does patient have nerve No 12/13/24 09:23 stimulator Patient instructed to have device shut off --Does patient have Pacemaker or ICD? When Was Last Pacemaker Check QUESTION #4 FULL TEXT: You/Your Family Experience fever (hyperthermia) with Anesthesia Last Oral Intake Last Oral intake: Last Oral Intake NPO since Meds taken in AM with sips of water? Meds patient instructed to take am of surgery PONV PONV - video surveillance technician: PONV - video surveillance technician Female Yes 12/13/24 09:23 HX of Motion Sickness No 12/13/24 09:23 HX of N/V After Surgery Yes 12/13/24 09:23 Non-Smoker Yes 12/13/24 09:23 Duration of Surgery greater Yes 12/13/24 09:23 than 60 minutes Number of Risk Factors 4 12/13/24 09:23 PONV Score Severe Risk 12/13/24 09:23 Height Weight Height Weight: Anesthesia: Height Weight Height 5 ft 09/13/24 13:58 Respiratory Assessment Respiratory Assessment - video surveillance technician: Respiratory Tract Infection Hx - video surveillance technician Hx Respiratory Tract Infection No 12/13/24 09:23 STOP Sleep Apnea STOP Sleep Apnea - video surveillance technician: STOP Sleep Apnea - video surveillance technician Hx Hypertension Yes: CONTROLLED WITH MED 12/13/24 [...] 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 - video surveillance technician: 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 - video surveillance technician Tobacco Use Cigarettes 06/13/24 15:14 Smoking Status Former smoker 12/13/24 09:23 Hx Tobacco Use Yes: marijuana 12/13/24 09:23 Years Smoking Packs Smoked per Day Smoking Cessation Date was Yes - quit smoking within 15 12/13/24 09:23 within the last 15 years years Hx Smoking Cessation Date 10/29/22 12/13/24 09:23 Hx Smoking Cessation No 12/13/24 09:23 Counseling Hematologic Medial History Hematologic Hx - video surveillance technician: Hematologic Medical Hx - impersonator character Hx of Blood Transfusion No 12/13/24 09:23 Hx of Transfusion in last 3 No 12/13/24 09:23 Months Date of Last Transfusion (if within last 3 months) Ever experience any problems No 12/13/24 09:23 with transfusion(s)? Specify any problems Hx of Preganancy in last 3 No 12/13/24 09:23 Months Nurse Filling Out Transfusion DSCHRIBER 12/13/24 09:23 Questions: Date: 12/13/24 12/13/24 09:23 Time: 12/13/24 09:23 Patient unable to answer at this time (ie. confused, unrespo /Reproduction History /Reproductive History - video surveillance technician: /Reproductive Hx- video surveillance technician Hx Now No 12/13/24 09:23 Gestational Age (in weeks): EDC: Hx Hx Para Hx Section SAB No 12/13/24 09:23 [facility] Medical History (Updated 12/13/24 @ 09:35 by Monica Pelletier) Cardiology follow-up encounter History of stress test [...] Polyneuropathy Occlusion of left internal carotid artery (more content not included)... Normal [facility] 12 Lead EKGon 12-15-2024 12 Lead EKG [facility] Cardiovascular Services [address] [place] [address] 12 Lead EKG 12/15/24 1226 MR#: [id number] Acct: [id number] Name: DEONTE BLANCO Rep #: [id number] : 1955 69 From: Jamel Gray MD Attending Dr: Dr. Anushka Isaac MD Status: PRE SDC Ordering Dr: Anushka Isaac MD Date: 12/15/24 Location: [facility] [place] Sex: F C Admitted: Test Reason : PREOP Blood Pressure : */* mmHG Vent. Rate : 67 BPM Atrial Rate : 67 BPM P-R Int : 208 ms QRS Dur : 86 ms QT Int : 390 ms P-R-T Axes : * 8 2 degrees QTcB Int : 412 ms Normal sinus rhythm Normal ECG Confirmed by ISAAC TURNER, JAMEL ([id number]), order editor ANNMARIE GANT ([id number]) on 12/16/2024 5:50:15 AM Referred By: Anushka Isaac Confirmed By: JAMEL GRAY MD 12/16/24 0550 Date Jamel Gray MD CC: Dr. Preet Farrar DO; Dr. Anushka Isaac MD Signed Normal [facility] Bilirubin, totalOrdered By: Anushka Isaac on 12-15-2024 Bilirubin [Mass/Vol] 0.49 mg/dL 0.00-1.30 [facility] CBC-Complete Blood Cnt No Di ffon 12-15-2024 Erythrocyte distribution width (RBC) [Ratio] 13.2 % Normal 11.6-14.6 [facility] Comment on above: Performed By: #### L 501.080 #### [facility] [address] [place], [address] Hematocrit (Bld) [Volume fraction] 41.4 % Normal 37-47 [facility] Comment on above: Performed By: #### L 501.080 #### [facility] [address] [place], [address] Hemoglobin (Bld) [Mass/Vol] 13.9 g/dL Normal 12.0-15.0 [facility] Comment on above: Performed By: #### L 501.080 #### [facility] [address] [place], [address] MCH (RBC) [Entitic mass] 29.9 pg Normal 27.0-32.0 [facility] Comment on above: Performed By: #### L 501.080 #### [facility] [address] [place], [address] MCHC (RBC) [Mass/Vol] 33.6 g/dL Normal 32-36 [facility] Comment on above: Performed By: #### L 501.080 #### [facility] [address] [place], [address] MCV (RBC) [Entitic vol] 89.0 fL Normal 81-99 [facility] Comment on above: Performed By: #### L 501.080 #### [facility] [address] [place], [address] Platelet mean volume (Bld) [Entitic vol] 9.9 fL Normal 6.2-12.0 [facility] Comment on above: Performed By: #### L 501.080 #### [facility] [address] [place], [address] Platelets (Bld) [#/Vol] 354 10*3/uL Normal 150-450 [facility] Comment on above: Performed By: #### L 501.080 #### [facility] [address] [place], [address] RBC (Bld) [#/Vol] 4.65 10*6/uL Normal 4.2-5.4 [facility] Comment on above: Performed By: #### L 501.080 #### [facility] [address] [place], [address] RDW SD 43.2 fl Normal 35.1-43.9 [facility] Comment on above: Performed By: #### L 501.080 #### [facility] [address] [place], [address] WBC (Bld) [#/Vol] 11.5 10*3/uL High 4.4-11.0 [facility] Comment on above: Performed By: #### L 501.080 #### [facility] [address] [place], [address] Comprehensive Metabolic Prof ilon 12-15-2024 Albumin [Mass/Vol] 4.3 g/dL Normal 3.4-4.[address] [facility] Comment on above: Performed By: #### L 501.080 #### [facility] [address] [place], [address] Albumin/Globulin [Mass ratio] 1.4 {ratio} Normal 0.9-2.4 [facility] Comment on above: Performed By: #### L 501.080 #### [facility] [address] [place], [address] ALK PHOS 106 U/L High 35-104 [facility] Comment on above: Performed By: #### L 501.080 #### [facility] [address] [place], [address] ALT [Catalytic activity/Vol] 15 U/L Normal <=34 [facility] Comment on above: Performed By: #### L 501.080 #### [facility] [address] [place], [address] AST [Catalytic activity/Vol] 19 U/L Normal <=31 [facility] Comment on above: Performed By: #### L 501.080 #### [facility] [address] [place], [address] Bilirubin [Mass/Vol] 0.49 mg/dL Normal 0.00-1.30 [facility] Comment on above: Performed By: #### L 501.080 #### [facility] [address] [place], [address] BUN/CRE 26.0 RATIO High 10-20 [facility] Comment on above: Performed By: #### L 501.080 #### [facility] [address] [place], [address] Calcium [Mass/Vol] 9.7 mg/dL Normal 7.6-11.[address] [facility] Comment on above: Performed By: #### L [id number] #### [facility] [address] [place], [address] Chloride [Moles/Vol] 101 mmol/L Normal 98-108 [facility] Comment on above: Performed By: #### L 501.080 #### [facility] [address] [place], [address] CO2 [Moles/Vol] 24.6 mmol/L Normal 21.0-32.0 [facility] Comment on above: Performed By: #### L 501.080 #### [facility] [address] [place], [address] Creatinine [Mass/Vol] 0.72 mg/dL Normal 0.70-1.20 [facility] Comment on above: Performed By: #### L 501.080 #### [facility] [address] [place], [address] GAP 11 Normal 5-15 [facility] Comment on above: Performed By: #### L 501.080 #### [facility] [address] [place], [address] GFR/1.73 sq M.predicted among non-blacks MDRD (S/P/Bld) [Vol rate/Area] 90 mL/min/{1.73_m2} Normal >60 [facility] Comment on above: Result Comment: mL/m in/1.73m2 CKD-EPI Creatinine Equation (2020) Performed By: #### L 501.080 #### [facility] [address] [place], [address] Globulin (S) [Mass/Vol] 3.2 g/dL Normal 2.2-4.2 [facility] Comment on above: Performed By: #### L 501.080 #### [facility] [address] [place], [address] Glucose [Mass/Vol] 148 mg/dL High 70-[address] [facility] Comment on above: Performed By: #### L 501.080 #### [facility] [address] [place], [address] Potassium [Moles/Vol] 4.1 mmol/L Normal 3.3-5.1 [facility] Comment on above: Performed By: #### L 501.080 #### [facility] [address] [place], [address] Sodium [Moles/Vol] 137 mmol/L Normal 133-[address] [facility] Comment on above: Performed By: #### L [id number] #### [facility] [address] [place], [address] T PROT 7.5 g/dL Normal 5.9-8.4 [facility] Comment on above: Performed By: #### L [id number] #### [facility] [address] [place], [address] Urea nitrogen [Mass/Vol] 19 mg/dL Normal 4-19 [facility] Comment on above: Performed By: #### L 501.080 #### [facility] [address] [place], [address] Hemoglobin A1con 12-15-2024 HbA1c (Bld) [Mass fraction] 7.9 % Normal <=5.6 [facility] Comment on above: Performed By: #### L 501.080 #### [facility] [address] [place], [address] Hemoglobin A1c percentageOrd ered By: Daniel Jaimeawaja on 12-15-2024 HbA1c (Bld) [Mass fraction] 7.9 % >5.7 [facility] - Chemistry and C hemistry - challengeOrdered By: Anushka Froylanwilliamtaryn on 12-15-2024 AST [Catalytic activity/Vol] 19 U/L <32 [facility] MR/PAT.ANEon 12-15-2024 MR/PAT.ANE [facility] Medical Records Department [address] [place] [address] PAT - Anesthesia 12/15/24 1826 MR#: [id number] Acct: [id number] Name: DEONTE BLANCO Rep #: [id number] : 1955 69 From: Mati Ervin MD PCP: Dr. Preet Farrar, DO Status:PRE [facility] [place] Race: C Location: [facility] [place] ADDENDUM by Dr. Mati Ervin MD on 12/15/24 at 1929 Addendum Mild to moderate aortic valve stenosis is noted on echo. Avoid increases in heart rate or decreases in blood pressure. Use phenylephrine as necessary. 12/15/241928 Date Mati Ervin MD cc: * Signed Pre-Assessment Diagnosis/Proposed Procedure Planned Operative Procedure(s): HYSTERECTOMY TL BSO Anesthesia History Anesthesia History - video surveillance technician: Anesthesia History - video surveillance technician Hx Hospitalization No 12/13/24 09:23 Any Problems With Anesthesia Yes: N,V 12/13/24 09:23 Cholinesterase deficiency No 12/13/24 09:23 You/Your Family Experience No 12/13/24 09:23 fever (hyperthermia) with Relationship Recent Exposure to Contagious No 07/26/24 06:31 Disease Does patient have nerve No 12/13/24 09:23 stimulator Patient instructed to have device shut off --Does patient have Pacemaker or ICD? When Was Last Pacemaker Check QUESTION #4 FULL TEXT: You/Your Family Experience fever (hyperthermia) with Anesthesia Last Oral Intake Last Oral intake: Last Oral Intake NPO since Meds taken in AM with sips of water? Meds patient instructed to take am of surgery PONV PONV - video surveillance technician: PONV - video surveillance technician Female Yes 12/13/24 09:23 HX of Motion Sickness No 12/13/24 09:23 HX of N/V After Surgery Yes 12/13/24 09:23 Non-Smoker Yes 12/13/24 09:23 Duration of Surgery greater Yes 12/13/24 09:23 than 60 minutes Number of Risk Factors 4 12/13/24 09:23 PONV Score Severe Risk 12/13/24 09:23 Height Weight Height Weight: Anesthesia: Height Weight Height 5 ft 09/13/24 13:58 Respiratory Assessment Respiratory Assessment - video surveillance technician: Respiratory Tract Infection Hx - video surveillance technician Hx Respiratory Tract Infection No 12/13/24 09:23 STOP Sleep Apnea STOP Sleep Apnea - video surveillance technician: STOP Sleep Apnea - video surveillance technician Hx Hypertension Yes: CONTROLLED WITH MED 12/13/24 [...] 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 - video surveillance technician: 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 - video surveillance technician Tobacco Use Cigarettes 06/13/24 15:14 Smoking Status Former smoker 12/13/24 09:23 Hx Tobacco Use Yes: marijuana 12/13/24 09:23 Years Smoking Packs Smoked per Day Smoking Cessation Date was Yes - quit smoking within 15 12/13/24 09:23 within the last 15 years years Hx Smoking Cessation Date 10/29/22 12/13/24 09:23 Hx Smoking Cessation No 12/13/24 09:23 Counseling Hematologic Medial History Hematologic Hx - video surveillance technician: Hematologic Medical Hx - impersonator character Hx of Blood Transfusion No 12/13/24 09:23 Hx of Transfusion in last 3 No 12/13/24 09:23 Months Date of Last Transfusion (if within last 3 months) Ever experience any problems No 12/13/24 09:23 with transfusion(s)? Specify any problems Hx of Preganancy in last 3 No 12/13/24 09:23 Months Nurse Filling Out Transfusion DSCHRIBER 12/13/24 09:23 Questions: Date: 12/13/24 12/13/24 09:23 Time: :12/13/24 09:23 Patient unable to answer at this time (ie. confused, unrespo /Reproduction History /Reproductive History - video surveillance technician: /Reproductive Hx- video surveillance technician Hx Now No 12/13/24 09:23 Gestational Age (in weeks): EDC: Hx Hx Para Hx Section SAB No 12/13/24 09:23 [facility] Medical History (Updated 12/13/24 @ 09:35 by Monica Pelletier) Cardiology follow-up encounter History of stress test First degree AV block Simple endometrial hyperplasia without atypia Wears glasses Post-menopausal Marijuana use Insulin dependent diabetes mellitus Thyroid disease Fatty liver High cholesterol Ulcerative colitis GERD (gastroesophageal reflux disease) Leg cramps History of echocardiogram Hypertension PONV (postoperative nausea and vomiting) Encounter for (more content not included)... Normal [facility] Magnesiumon 12-15-2024 Magnesium [Mass/Vol] 1.8 mg/dL Normal 1.5-2.2 [facility] Comment on above: Performed By: #### L 501.080 #### [facility] [address] [place] [address]. [place], [address] Magnesium (Unsp spec) [Mass/ Vol]Ordered By: Daniel Cesar on 12-15-2024 Magnesium [Mass/Vol] 1.8 mg/dL 1.5-2.2 [facility] Magnesium measurement (mass/ volume)Ordered By: Daniel Cesar on 12-15-2024 Magnesium (Unsp spec) [Mass/Vol] 1.8 mg/dL 1.5-2.2 [facility] Serum globulin measurementOr dered By: Anushka Isaac on 12-15-2024 Globulin (S) [Mass/Vol] 3.2 g/dL 2.2-4.2 [facility] Serum or plasma alanine méndez otransferase (ALT) measurementOrdered By: Anushka Isaac on 12-15-2024 ALT [Catalytic activity/Vol] 15 U/L <35 [facility] Serum or plasma albumin mulugeta urement (mass/volume)Ordered By: Anushka Isaac on 12-15-2024 Albumin [Mass/Vol] 4.3 g/dL 3.4-4.[address] [facility] Serum or plasma albumin/glob ulin mass ratioOrdered By: Anushka Isaac on 12-15-2024 Albumin/Globulin [Mass ratio] 1.4 {ratio} 0.9-2.4 [facility] Serum or plasma alkaline umm sphatase measurementOrdered By: Anushka Isaac on 12-15-2024 ALP [Catalytic activity/Vol] 106 U/L High 35-104 [facility] T4 Free Directon 12-15-2024 T4 FREE DIRECT 0.80 ng/dL Normal 0.76-1.46 [facility] Comment on above: Performed By: #### L 501.080 #### [facility] [address] [place], [address] T4 freeOrdered By: Anushka gerard on 12-15-2024 Free T4 [Mass/Vol] 0.80 ng/dL 0.76-1.[address] [facility] TSH DL <= 0.005 mIU/L QnOrde red By: Anushka Isaac on 12-15-2024 Thyroid Stimulating Hormone (TSH) 0.836 uIU/mL 0.300-4.20 0 [facility] TSH Qn 0.836 uIU/mL 0.300-4.20 0 [facility] Thyroid Stim Hormone (TSH)on 12-15-2024 TSH 0.836 uIU/mL Normal 0.300-4.20 0 [facility] Comment on above: Performed By: #### L 501.080 #### [facility] [address] [place], [address] Total proteinOrdered By: Jas Isaac on 12-15-2024 Protein [Mass/Vol] 7.5 g/dL 5.9-8.[address] [facility] Type AND Screen - PAT ONLYon 12-15-2024 ABO and Rh group Nom (Bld) Blood group A Rh(D) positive Normal [facility] Comment on above: Order Comment: Surge ry Date: 12/27/24Reason for Laboratory Test [id number] VAG HYSTER Performed By: #### L 501.080 #### [facility] [address] [place], [address] CNOVon 12-14-2024 CNOV Office Visit (FAMPWS ) DEONTE BLANCO ([id number]) 1955 F Date Time Provider Department 12/14/24 11:00 AM [facility] During your visit today, we recorded the following information about you: Temperature Pulse Respiration Blood pressure 97 degrees 64/minute 16/minute 136/70 Weight Height 84.4 kg 1.53 m Preet Farrar, 12/14/2024 11:45 AM Signed Start the Victoza 0.6 mg once a day for blood sugar control Stop the Januvia when you start this for your diabetes Preet Farrar DO 12/14/2024 12:07 PM Signed Patient presents with: Pre-Op Exam: hysterectomy HPI: Deonte March Francis is a 69 year old female who [...] mouth t (more content not included)... Normal [facility] DE[facility] ([id number]) 1955 F Date Time Provider Department 12/14/24 [facility] During your visit today, we recorded the [...] PM Signed Pt. wants Trulicity sent to [facility]. Insurance won't pay for Victoza. Jacqueline Candelario APRN.DEREK 12/14/2024 5:40 PM Signed The following approved medication requests have been transmitted electronically. Requested Prescriptions Signed Prescriptions Disp Refills dulaglutide (TRULICITY) 0.75 mg/0.5 mL pen injector 6 mL 2 Sig: Inject 0.75 mg subcutaneously one time a week. Authorizing Provider: JACQUELINE CANDELARIO APRN.DIRECTOR STATISTICAL PROGRAMMING Allergies As of Date: 12/14/2024 Noted Allergy [...] for Visit: Medication Question [Other] Primary Visit Diagnosis:Uncontrolled type 2 diabetes mellitus with hyperglycemia (HCC) [...] on fasting at 8 am - Insulin Peyton, Disposable, (BD ULTRA-FINE MARIA T PEN NEEDLE) [...] Fatigue [R53.83] 09/07/2017 Medial epicondylitis, left [M77.02] (more content not included)... Normal [facility] Senior Biostatistician Office Visit Reporton 12-12-2024 Senior Biostatistician Office Visit Report [facility] [address], [address] [place] [address] OFFICE VISIT Date of Service: 12/12/24 MR#: [id number] Acct: [id number] Name: DEONTE BLANCO Rep #: [id number] : 1955 Provider: Dr. Anushka nolan MD Age/Sex: 69/F Location: [facility] [place] Status: Signed Intake Vital Signs 09/13/24 13:58 12/12/24 10:53 Height 5 ft 5 ft Weight: 181 lb 188 lb 4 oz BMI 35.3 36.7 BP 153/69 H 152/59 H Blood Pressure Location Rt brachial Position Sitting Respiration 18 Pulse 69 Pulse Source Monitor Pulse Oximetry (%) 96 Oxygen Delivery Method room air Intake Visit Reasons: TVHBS Chief Complaint: FU consult medications Window Tinter Required: No Is patient in pain?: No Allergies metformin Allergy (Severe, Verified 09/13/24 14:02) Hives prednisone Allergy (Intermediate, Verified 09/13/24 14:02) Itching aspirin Allergy (Verified 09/13/24 14:02) mouth swelling gluten Allergy (Verified 09/13/24 14:02) Abd cramps/diarrhea ibuprofen Allergy (Verified 09/13/24 14:02) mouth swelling Sulfa (Sulfonamide Antibiotics) Allergy (Verified 09/13/24 14:02) pt can't remember Medications ???Medication ???Instructions ???Recorded ???Confirmed ???Type ergocalciferol (vitamin D2) 1,250 50,000 unit PO MOFR SUPPLEMENT 12/12/24 History mcg (50,000 unit) capsule thyroid (pork) 120 mg tablet 120 tablet PO DAILY THYROID 12/12/24 History atorvastatin 80 mg tablet 80 mg PO QHS cholesterol #30 tabs 11/04/22 12/12/24 Rx clopidogrel 75 mg tablet 75 mg PO DAILY BLOOD THINNER #30 0 11/04/22 12/12/24 Rx tabs carvedilol 6.25 mg tablet 6.25 mg PO BID 03/05/24 12/12/24 H istory pantoprazole 40 mg tablet,delayed 40 mg PO DAILY #30 tabs 05/22/24 12/12/24 Rx release vitamin C 30 mg-zinc citrate 1.1 1 tab PO DAILY 05/22/24 12/12/24 H istory mg-elderberry 25 mg chewable tablet (Sambucus Elderberry) sitagliptin phosphate 100 mg 100 mg PO QDAY 07/07/24 12/12/24 H istory tablet (Januvia) thyroid (pork) 30 mg tablet 30 mg PO MOWEFR 07/21/24 12/12/24 History (Wray Thyroid) glimepiride 2 mg tablet 3 mg PO BID 08/10/24 12/12/24 Hist ory ondansetron 4 mg disintegrating 4 mg PO Q8H PRN 08/12/24 12/12/24 History tablet insulin glargine 100 unit/mL (3 20 unit subcut DAILY 12/12/2411/26 History mL) subcutaneous pen (Lantus Solostar U-100 Insulin) spironolactone 25 mg tablet 25 mg PO BID 12/12/24 12/12/24 His tory Is last menstrual period known: No Post menopausal: Yes Patient : No : No Nurse's Note: FU medication consult [facility] Medical History First degree AV block Abnormal [...] pain Surgical History History of back surgery ( 2019) Hx of umbilical hernia repair S/P tubal ligation S/P cholecystectomy S/P tonsillectomy and adenoidectomy History of lumbar fusion History of lumbar discectomy Family History Mother Heart disease Alzheimers disease Father Heart disease Hypertension CAD (coronary artery disease) Myocardial infarction Thyroid disorder Diabetes Sister Cancer Social History adopted: No household members: none number of children: 3 sexually active: Yes Smoking Status: Former smoker alcohol intake: never substance use type: marijuana and other details: Medical cannabis, usually daily. seatbelt use: always do you feel safe at home: Yes HPI TVHBS Details: DEONTE BLANCO is a 69 year old who presents for preop appointment. she has endometri (more content not included)... Normal [facility] CREATININE, 24 HOUR URINEon 11-18-2024 Creatinine (24H U) [Mass/Time] 1.125 g/24 hr Normal 0.800-1.80 0 [facility] Comment on above: Order Comment: Speci men Type: URINE SPECIMENOrdering Facility: [facility] Address: [address] [place] [address] Performed By: #### U CRD ####[facility] LABCLIA [id number] [place] [address] [place] PERIOD (HRS) 24 hr Normal [facility] Comment on above: Order Comment: Speci men Type: URINE SPECIMENOrdering Facility: [facility] Address: [address] [place] [address] Performed By: #### U CRD ####[facility] LABCLIA [id number] [address] [place] Specimen volume (24H U) 1.5 L Normal [facility] Comment on above: Order Comment: Speci men Type: URINE SPECIMENOrdering Facility: [facility] Address: [address] [place] [address] Performed By: #### U CRD ####[facility] LABCLIA [id number] [address] [place] URINE FREE CORTISOL BY LC-MS /MSon 11-18-2024 CORTISOL UG/G SCROLL ASSEMBLER, UR (UFRCRT) 28.27 ug/g SCROLL ASSEMBLER Normal [facility] Comment on above: Order Comment: Speci men Type: URINE SPECIMENOrdering Facility: [facility] Address: [address] [place] [address] Result Comment: Refe rence Interval: Cortisol ug/g ramp manager Female Prepubertal: Less than 25 ug/g ramp manager 18 years and older: Less than 24 ug/g ramp manager : Less than 59 ug/g ramp manager Male Prepubertal: Less than 25 ug/g ramp manager 18 years and older: Less than 32 ug/g ramp manager Performed By: #### U FRCRT ####[facility] [id number] [place] [address] CREATININE, URINE PER 24H 1215 mg/d Normal 500-1400 [facility] Comment on above: Order Comment: Speci men Type: URINE SPECIMENOrdering Facility: [facility] Address: [address] [place] [address] Performed By: #### U FRCRT ####[facility] [id number] [place] [address] CREATININE, URINE PER VOLUME 81 mg/dL Normal [facility] Comment on above: Order Comment: Speci men Type: URINE SPECIMENOrdering Facility: [facility] Address: [address] [place] [address] Performed By: #### U FRCRT ####[facility] [id number] [place] [address] FREE CORTISOL UG/DAY, URINE 34.4 ug/d Normal <=45.0 [facility] Comment on above: Order Comment: Speci men Type: URINE SPECIMENOrdering Facility: [facility] Address: [address] [place] [address] Performed By: #### U FRCRT ####[facility] [id number] [place] [address] FREE CORTISOL UG/L, URINE 22.90 ug/L Normal [facility] Comment on above: Order Comment: Speci men Type: URINE SPECIMENOrdering Facility: [facility] Address: [address] [place] [address] Performed By: #### U FRCRT ####[facility] [id number] [place] [address] HOURS COLLECTED 24 hr Normal [facility] Comment on above: Order Comment: Speci men Type: URINE SPECIMENOrdering Facility: [facility] Address: [address] [place] [address] Result Comment: Per 24h calculations are provided to aid interpretation for collections with a duration of 24 hours and an average daily urine volume. For specimens with notable deviations in collection time or volume, ratios of analytes to a corresponding urine creatinine concentration may assist in result interpretation. Performed By: #### U FRCRT ####[facility] [id number] [place] [address] TOTAL VOLUME 1500 mL Normal [facility] Comment on above: Order Comment: Speci men Type: URINE SPECIMENOrdering Facility: [facility] Address: [address] [place] [address] Performed By: #### U FRCRT ####[facility]IES[facility]IA [id number] [place] [address] UR YENNY FREE INTERP See Note Normal [facility] [facility] Comment on above: Order Comment: Speci men Type: URINE SPECIMENOrdering Facility: [facility] Address: [address] [place] [address] Result Comment: INTE RPRETIVE INFORMATION: Cortisol Urine Free by LC-MS/MS Access complete set of age- and/or gender-specific reference intervals for this test in the [facility] Test Directory ([facility]). This test was developed and its performance characteristics determined by [facility]. It has not been cleared or approved by the [place] Food and Drug Administration. This test was performed in a CLIA certified laboratory and is intended for clinical purposes. Performed By: [facility] [address] [place] [address] [employer]: Suresh Rothman MD, PhD CLIA Number: [id number] Performed By: #### U FRCRT ####[facility] [id number] [place] [id number] THYROXIN, FR BY EQ DIALYSIS/ HPLC-TNDMMSon 11-16-2024 FREE T4 BY EQ DIALYSIS 1.2 ng/dL Normal 1.1-2.4 [facility] Comment on above: Order Comment: Speci men Type: BLOOD SPECIMENOrdering Facility: [facility] Address: [address] [place] [address] Result Comment: FREE T4 BY EQUIL DIALYSIS-TMS: REFERENCE INTERVALS 1ST TRIMESTER ...... 0.7 - 2.0 ng/dL 2ND TRIMESTER ...... 0.7 - 2.1 ng/dL 3RD TRIMESTER ...... 0.5 - 1.6 ng/dL INTERPRETIVE INFORMATION: FT4 ED-TMS Some medications may induce transient changes in FT4 concentrations. This test is not recommended for patients currently on heparin treatment as FT4 concentrations may be falsely elevated. Performed By: [facility] [address] [place], [place] [id number] [employer]: Suresh Rothman MD, PhD CLIA Number: [id number] Performed By: #### T 4HPLC ####[facility] indeniIA [id number] [place] [address] TSH SerPl-aCncon 11-16-2024 TSH Qn 1.180 m[IU]/L Normal 0.270-4.20 0 [facility] Comment on above: Order Comment: Speci men Type: BLOOD SPECIMENOrdering Facility: [facility] Address: [address] [place] [address] Performed By: #### 3 016-3 ####[facility] LABCLIA [id number] GHADAAraceli PORTILLODESK [id number] OF [facility] CNOVon 11-11-2024 CNOV Office Visit (ENWSTR ) DEONTE BLANCO ([id number]) 1955 F Date Time Provider Department 11/11/24 9:40 AM BEAN ISAAC ENWSJAMIL During your visit today, [...] carbs . Lifestyle -Exercise: 30 mins on RVX daily -Diet: Breakfast: 3 eggs, 1 slice [...] weakness, cramp (more content not included)... Normal [facility] GLOOKO ON DEMANDon Ordered by an unspec ified provider. [facility] CBC W Auto Differential pane l (Bld)on 11-07-2024 Basophils (Bld) [#/Vol] 0.07 10*3/uL Normal <0.11 [facility] Comment on above: Order Comment: Speci men Type: BLOOD SPECIMENOrdering Facility: [facility] Address: [address] [place], [place] [address] Performed By: #### 5 7021-8 ####[facility] LABCLIA [id number] [place] [address] [place] Basophils/100 WBC (Bld) 0.7 % Normal [facility] Comment on above: Order Comment: Speci men Type: BLOOD SPECIMENOrdering Facility: [facility] Address: [address] [place] [address] Performed By: #### 5 7021-8 ####[facility] LABCLIA [id number] [place] [address] [place] Differential cell count method Nom (Bld) Auto Normal [facility] Comment on above: Order Comment: Speci men Type: BLOOD SPECIMENOrdering Facility: [facility] Address: [address] [place] [address] Performed By: #### 5 7021-8 ####[facility] LABCLIA [id number] [place] [address] [place] Eosinophils (Bld) [#/Vol] 0.25 10*3/uL Normal <0.46 [facility] Comment on above: Order Comment: Speci men Type: BLOOD SPECIMENOrdering Facility: [facility] Address: [address] [place] [address] Performed By: #### 5 7021-8 ####[facility] LABCLIA [id number] [place] [address] [place] Eosinophils/100 WBC (Bld) 2.6 % Normal [facility] Comment on above: Order Comment: Speci men Type: BLOOD SPECIMENOrdering Facility: [facility] Address: [address] [place] [address] Performed By: #### 5 7021-8 ####[facility] LABCLIA [id number] [place] [address] [place] Erythrocyte distribution width (RBC) [Ratio] 13.3 % Normal 11.5-15.0 [facility] Comment on above: Order Comment: Speci men Type: BLOOD SPECIMENOrdering Facility: [facility] Address: [address] [place] [address] Performed By: #### 5 7021-8 ####[facility] LABCLIA [id number] [place] [address] [place] Hematocrit (Bld) [Volume fraction] 40.9 % Normal 36.0-46.0 [facility] Comment on above: Order Comment: Speci men Type: BLOOD SPECIMENOrdering Facility: [facility] Address: [address] [place] [address] Performed By: #### 5 7021-8 ####[facility] LABCLIA [id number] [place] [address] [place] Hemoglobin (Bld) [Mass/Vol] 13.3 g/dL Normal 11.5-15.5 [facility] Comment on above: Order Comment: Speci men Type: BLOOD SPECIMENOrdering Facility: [facility] Address: [address] [place] [address] Performed By: #### 5 7021-8 ####[facility] LABCLIA [id number] [place] [address] [place] Immature granulocytes (Bld) [#/Vol] 0.07 10*3/uL Normal <0.10 [facility] Comment on above: Order Comment: Speci men Type: BLOOD SPECIMENOrdering Facility: [facility] Address: [address] [place] [address] Performed By: #### 5 7021-8 ####[facility] LABCLIA [id number] [place] [address] [place] Immature granulocytes/100 WBC (Bld) 0.7 % Normal [facility] Comment on above: Order Comment: Speci men Type: BLOOD SPECIMENOrdering Facility: [facility] Address: [address] [place] [address] Performed By: #### 5 7021-8 ####[facility] LABCLIA [id number] [place] [address] [place] Lymphocytes (Bld) [#/Vol] 2.00 10*3/uL Normal 1.00-4.00 [facility] Comment on above: Order Comment: Speci men Type: BLOOD SPECIMENOrdering Facility: [facility] Address: [address] [place] [address] Performed By: #### 5 7021-8 ####[facility] LABCLIA [id number] [place] [address] [place] Lymphocytes/100 WBC (Bld) 20.5 % Normal [facility] Comment on above: Order Comment: Speci men Type: BLOOD SPECIMENOrdering Facility: [facility] Address: [address] [place] [address] Performed By: #### 5 7021-8 ####[facility] LABCLIA [id number] [place] [address] [place] MCH (RBC) [Entitic mass] 30.2 pg Normal 26.0-34.0 [facility] Comment on above: Order Comment: Speci men Type: BLOOD SPECIMENOrdering Facility: [facility] Address: [address] [place] [address] Performed By: #### 5 7021-8 ####[facility] LABCLIA [id number] [place] [address] [place] MCHC (RBC) [Mass/Vol] 32.5 g/dL Normal 30.5-36.0 [facility] Comment on above: Order Comment: Speci men Type: BLOOD SPECIMENOrdering Facility: [facility] Address: [address] [place] [address] Performed By: #### 5 7021-8 ####[facility] LABCLIA [id number] [id number] [address] [place] MCV (RBC) [Entitic vol] 93.0 fL Normal 80.0-100.0 [facility] Comment on above: Order Comment: Speci men Type: BLOOD SPECIMENOrdering Facility: [facility] Address: [address] [place] [address] Performed By: #### 5 7021-8 ####[facility] LABCLIA [id number] [place] [address] [place] Monocytes (Bld) [#/Vol] 0.87 10*3/uL High <0.87 [facility] Comment on above: Order Comment: Speci men Type: BLOOD SPECIMENOrdering Facility: [facility] Address: [address] [place] [address] Performed By: #### 5 7021-8 ####[facility] LABCLIA [id number] [place] [address] [place] Monocytes/100 WBC (Bld) 8.9 % Normal [facility] Comment on above: Order Comment: Speci men Type: BLOOD SPECIMENOrdering Facility: [facility] Address: [address] [place] [address] Performed By: #### 5 7021-8 ####[facility] LABCLIA [id number] [place] [address] [place] Neutrophils (Bld) [#/Vol] 6.48 10*3/uL Normal 1.45-7.50 [facility] Comment on above: Order Comment: Speci men Type: BLOOD SPECIMENOrdering Facility: [facility] Address: [address] [place] [address] Performed By: #### 5 7021-8 ####[facility] LABCLIA [id number] [place] [address] [place] Neutrophils/100 WBC (Bld) 66.6 % Normal [facility] Comment on above: Order Comment: Speci men Type: BLOOD SPECIMENOrdering Facility: [facility] Address: [address] [place] [address] Performed By: #### 5 7021-8 ####[facility] LABCLIA [id number] [place] [address] [place] Nucleated RBC (Bld) [#/Vol] 10*3/uL Normal <0.01 [facility] Comment on above: Order Comment: Speci men Type: BLOOD SPECIMENOrdering Facility: [facility] Address: [address] [place] [address] Performed By: #### 5 7021-8 ####[facility] LABCLIA [id number] [place] [address] [place] Nucleated RBC/100 WBC (Bld) [Ratio] 0.0 /100 WBC Normal [facility] Comment on above: Order Comment: Speci men Type: BLOOD SPECIMENOrdering Facility: [facility] Address: [address] [place] [address] Performed By: #### 5 7021-8 ####[facility] LABCLIA [id number] [place] [address] [place] Platelet mean volume (Bld) [Entitic vol] 9.9 fL Normal 9.0-12.7 [facility] Comment on above: Order Comment: Speci men Type: BLOOD SPECIMENOrdering Facility: [facility] Address: [address] [place] [address] Performed By: #### 5 7021-8 ####[facility] LABCLIA [id number] [place] [address] [place] Platelets (Bld) [#/Vol] 314 10*3/uL Normal 150-400 [facility] Comment on above: Order Comment: Speci men Type: BLOOD SPECIMENOrdering Facility: [facility] Address: [address] [place] [address] Performed By: #### 5 7021-8 ####[facility] LABCLIA [id number] [place] [id number] [place] RBC (Bld) [#/Vol] 4.40 10*6/uL Normal 3.90-5.20 [facility] Comment on above: Order Comment: Speci men Type: BLOOD SPECIMENOrdering Facility: [facility] Address: [address] [place] [address] Performed By: #### 5 7021-8 ####[facility] LABIA [id number] [place] [address] [place] WBC (Bld) [#/Vol] 9.74 10*3/uL Normal 3.70-11.00 [facility] Comment on above: Order Comment: Speci men Type: BLOOD SPECIMENOrdering Facility: [facility] Address: [address] [place] [address] Performed By: #### 5 7021-8 ####[facility] [id number] [place] [address] [place] Ferritin SerPl-mCncon 2024 Ferritin [Mass/Vol] 39.0 ng/mL Normal 14.7-205.1 [facility] Comment on above: Order Comment: Speci men Type: BLOOD SPECIMENOrdering Facility: [facility] Address: [address] [place] [address] Performed By: #### 2 276-4, 29697-7, 3084-1, 63895-5 ####[facility] LABIA [id number] [place] [id number] [place] Iron and Iron binding capaci ty panelon 11-07-2024 Iron [Mass/Vol] 62 ug/dL Normal 41-186 [facility] Comment on above: Order Comment: Speci men Type: BLOOD SPECIMENOrdering Facility: [facility] Address: [address] [place] [address] Performed By: #### 2 276-4, 43700-2, 3084-1, 35289-0 ####[facility] LABCLIA [id number] [address] [address] [place] Iron binding capacity [Mass/Vol] 404 ug/dL High 232-386 [facility] Comment on above: Order Comment: Speci men Type: BLOOD SPECIMENOrdering Facility: [facility] Address: [address] [place] [address] Performed By: #### 2 276-4, 81736-8, 3084-, ####[facility] LABCLIA [id number] [place] [id number] [place] Iron/TIBC [Molar ratio] 15.3 % Normal 15.0-57.0 [facility] Comment on above: Order Comment: Speci men Type: BLOOD SPECIMENOrdering Facility: [facility] Address: [address] [place] [address] Performed By: #### 2 276-4, 58088-4, 3084-, 45759-9 ####[facility] LABIA [id number] [place] [id number] [place] PTH-Intact SerPl-ncon 10-29 Parathyrin.intact [Mass/Vol] 42 pg/mL Normal 15-65 [facility] Comment on above: Order Comment: Speci men Type: BLOOD SPECIMENOrdering Facility: [facility] Address: [address] [place] [address] Performed By: #### 2 731-8 ####[facility] LABCLIA [id number] [place] [id number] [place] Prot/Creat Uron 11-07-2024 Protein/Creatinine (U) [Mass ratio] 0.08 mg/mg Normal <0.15 [facility] Comment on above: Order Comment: Speci men Type: URINE SPECIMENOrdering Facility: [facility] Address: [address] [place] [address] Result Comment: Adul t Proteinuria Categories: <0.15 mg/mg is considered normal to mildly increased 0.15 - 0.50 mg/mg is considered moderately increased >0.50 mg/mg is considered severely increased KDIGO. (2013). KDIGO 2012 Clinical Practice Guideline for the Evaluation and Management of Chronic Kidney Disease. Official Journal of the International Society of Nephrology, 3(1), 1-150. Performed By: #### 2 890-2 ####[facility] LABCLIA [id number] [place] [address] [place] Protein/Creatinine (U) [Mass ratio]on 11-07-2024 Creatinine (U) [Mass/Vol] 64.2 mg/dL Normal 20.0-300.0 [facility] Comment on above: Order Comment: Speci men Type: URINE SPECIMENOrdering Facility: [facility] Address: [address] [place] [address] Performed By: #### 2 890-2 ####[facility] LABIA [id number] [place] [address] [place] Protein (U) [Mass/Vol] 5 mg/dL Normal 0-20 [facility] Comment on above: Order Comment: Abimbola diaz Type: URINE SPECIMENOrdering Facility: [facility] Address: [address] [place] [address] Performed By: #### 2 890-2 ####[facility] LABIA [id number] [place] [id number] [place] Renal function 2000 panelon 11-07-2024 Albumin [Mass/Vol] 4.2 g/dL Normal 3.9-4.9 [facility] Comment on above: Order Comment: Noryi men Type: BLOOD SPECIMENOrdering Facility: [facility] Address: [address] [place] [address] Performed By: #### 2 276-4, 07121-2, 3084-1, 25586-1 ####[facility] LABCLIA [id number] [address] [address] [place] Anion gap [Moles/Vol] 11 mmol/L Normal 8-15 [facility] Comment on above: Order Comment: Speci men Type: BLOOD SPECIMENOrdering Facility: [facility] Address: [address] [place] [address] Performed By: #### 2 276-4, 37172-0, 3084-1, 65765-9 ####[facility] LABCLIA [id number] [place] [id number] [place] Calcium [Mass/Vol] 9.8 mg/dL Normal 8.5-10.2 [facility] Comment on above: Order Comment: Speci men Type: BLOOD SPECIMENOrdering Facility: [facility] Address: [address] [place] [address] Performed By: #### 2 276-4, 65940-0, 3084-1, 54128-2 ####[facility] LABCLIA [id number] [place] [address] [place] Chloride [Moles/Vol] 98 mmol/L Normal 98-107 [facility] Comment on above: Order Comment: Speci men Type: BLOOD SPECIMENOrdering Facility: [facility] Address: [address] [place] [address] Performed By: #### 2 276-4, 57857-9, 3084-1, 06573-3 ####[facility] LABCLIA [id number] [place] [id number] [place] CO2 [Moles/Vol] 25 mmol/L Normal 22-30 [facility] Comment on above: Order Comment: Speci men Type: BLOOD SPECIMENOrdering Facility: [facility] Address: [address] [place] [address] Performed By: #### 2 276-4, 69553-0, 3084-1, 22857-6 ####[facility] LABCLIA [id number] [address] [address] [place] Creatinine [Mass/Vol] 0.72 mg/dL Normal 0.58-0.96 [facility] Comment on above: Order Comment: Abimbola diaz Type: BLOOD SPECIMENOrdering Facility: [facility] Address: [address] [place] [address] Performed By: #### 2 276-4, 07541-5, 3084-1, 26999-1 ####[facility] LABCLIA [id number] [place] [address] [place] Creatinine and Glomerular filtration rate.predicted panel (S/P/Bld) 91 mL/min/1.73m??? Normal >=60 [facility] Comment on above: Order Comment: Abimbola diaz Type: BLOOD SPECIMENOrdering Facility: [facility] Address: [address] [place] [address] Result Comment: Ana Paula mated Glomerular Filtration [...] actual GFR. Performed By: #### 2 276-4, 22393-4, 3084-1, 33044-5 ####[facility] LABCLIA [id number] [place] [id number] [place] Glucose [Mass/Vol] 237 mg/dL High 74-99 [facility] Comment on above: Order Comment: Abimbola diaz Type: BLOOD SPECIMENOrdering Facility: [facility] Address: [address] [place] [address] Result Comment: The [place] Diabetes Association (ADA) provides guidance for cutoff [...] Standards of Medical Care in Diabetes 2016, [place] [employer]. Diabetes Care. 2016.39(Suppl 1). Performed By: #### 2 276-4, 04835-9, 3084-1, 53722-9 ####[facility] LABCLIA [id number] [address] [address] [place] Phosphate [Mass/Vol] 3.5 mg/dL Normal 2.7-4.8 [facility] Comment on above: Order Comment: Abimbola diaz Type: BLOOD SPECIMENOrdering Facility: [facility] Address: [address] [place] [address] Performed By: #### 2 276-4, 74703-4, 4-, 07533-0 ####[facility] LABCLIA [id number] [place] [address] [place] Potassium [Moles/Vol] 4.6 mmol/L Normal 3.7-5.1 [facility] Comment on above: Order Comment: Abimbola diaz Type: BLOOD SPECIMENOrdering Facility: [facility] Address: [address] [place] [address] Performed By: #### 2 276-4, 36206-0, 3084-1, 65296-4 ####[facility] LABCLIA [id number] [place] [id number] [place] Sodium [Moles/Vol] 134 mmol/L Low 136-144 [facility] Comment on above: Order Comment: Abimbola diaz Type: BLOOD SPECIMENOrdering Facility: [facility] Address: [address] [place] [address] Performed By: #### 2 276-4, 52951-2, 3084-1, 82369-6 ####[facility] LABCLIA [id number] [place] [id number] [place] Urea nitrogen [Mass/Vol] 18 mg/dL Normal 7-21 [facility] Comment on above: Order Comment: Speci men Type: BLOOD SPECIMENOrdering Facility: [facility] Address: [address] [place] [address] Performed By: #### 2 276-4, 83952-6, 3084-, 76303-3 ####[facility] LABCLIA [id number] [address] [address] [place] Urate SerPl-mCncon 5 Urate [Mass/Vol] 3.4 mg/dL Normal 2.5-6.6 [facility] [place] [facility] Comment on above: Order Comment: Speci men Type: BLOOD SPECIMENOrdering Facility: [facility] Address: [address] [place] [address] Performed By: #### 2 276-4, 41094-1, 3084, 56009-4 ####[facility] LABCLIA [id number] [place] [id number] [place] Echo Completeon 10-10-2024 Echo Complete [facility] [address] [place] [address] Echo Complete 10/10/24 0955 MR#: [id number] Acct: [id number] Name: DEONTE BLANCO Rep #: [id number] : 1955 69 From: Julien Reyna MD Attending Dr: Dr. Julien Reyna MD Status: [facility] CLI Ordering Dr: Julien Reyna MD Date: 10/10/24 Location: [facility] Sex: F C Admitted: Reason For Study: Aortic Stenosis Procedure This was a 2D Doppler, Color Flow transthoracic echocardiogram. Exam performed in department. Left Ventricle Normal LV size. Mild concentric left ventricular hypertrophy. The left ventricular ejection fraction is 65 %. Stage 1 diastolic dysfunction. Right Ventricle Normal right ventricle. Atria The left atrium is mildly enlarged. Normal right atrium. Mitral Valve There is Moderate focal posterior mitral annular calcification. Trivial mitral valve insufficiency. Tricuspid Valve Trivial tricuspid valve insufficiency. Unable to estimate RV systolic pressure due to insufficient tricuspid regurgitant envelope. Aortic Valve Mild to moderate aortic valve stenosis with mild aortic valve regurgitation. Pulmonic Valve The pulmonic valve is not well visualized. Great Vessels Normal sized aortic root. Pericardium/Pleural Trivial loculated posterior pericardial effusion. MMode/2D Measurements Calculations LVIDd: 4.5 cm IVSd: 1.2 cm LVOT diam: 2.0 cm LVIDs: 2.9 cm LVPWd: 1.3 cm LVOT area: 3.0 cm2 RVDd: 3.1 cm FS: 35.0 % Ao root diam: 3.3 cm LAV(MOD-bp): 44.4 ml LVAd ap4: 24.3 cm2 LA dimension: 4.2 cm LAV(MOD-bp) Indexed: 24.8 ml/m2 LVLd ap4: 6.9 cm LAV(MOD-sp2): 47.3 ml EDV(MOD-sp4): 72.0 ml LAV(MOD-sp4): 40.3 ml EDV(sp4-el): 73.1 ml LVAs ap4: 13.3 cm2 LVLs ap4: 6.4 cm ESV(MOD-sp4): 24.8 ml ESV(sp4-el): 23.5 ml EF(MOD-sp4): 65.5 % EF(sp4-el): 67.9 % SV(MOD-sp4): 47.2 ml SV(sp4-el): 49.6 ml LA A4 area: 16.4 cm2 SI(MOD-sp4): 26.4 ml/m2 LA dimension(2D): 4.4 cm RA A4 area: 16.0 cm2 TAPSE: 2.1 cm Time Measurements MV dec time: 0.22 sec Doppler Measurements Calculations MV E max glory: 82.8 cm/sec Lat Peak E' Glory: 5.0 cm/sec Med Peak E' Glory: 4.7 cm/sec MV A max glory: 96.2 cm/sec E/E' lat: 16.4 E/E' med: 17.8 MV E/A: 0.86 MV V2 max: 107.0 cm/sec MV P1/2t max glory: 95.4 cm/sec Ao V2 max: 314.0 cm/sec MV max P.6 mmHg MV P1/2t: 81.6 msec Ao max P.4 mmHg MV V2 mean: 62.5 cm/sec Ao V2 mean: 201.6 cm/sec MV mean P.8 mmHg MV dec slope: 342.4 cm/sec2 Ao mean P.1 mmHg MV V2 VTI: 37.2 cm MVA(P1/2t): 2.7 cm2 Ao V2 VTI: 71.8 cm AV (velocity ratio): 0.37 MVA(VTI): 2.2 cm2 GREG(I,D): 1.1 cm2 GREG(V,D): 1.0 cm2 AI max glory: 407.1 cm/sec LV V1 max: 106.9 cm/sec SV(LVOT): 80.4 ml AI max P.7 mmHg LV V1 max P.6 mmHg LV V1 mean P.4 mmHg AI dec slope: 216.4 cm/sec2 LV V1 mean: 72.3 cm/sec AI P1/2t: 550.9 msec LV V1 VTI: 26.4 cm PA V2 max: 94.7 cm/sec PA V2 mean: 63.9 cm/sec ECHO/Echo Complete Interpretation Summary Mild concentric left ventricular hypertrophy. The left ventricular ejection fraction is 65 %. Stage 1 diastolic dysfunction. The left atrium is mildly enlarged. Mild to moderate aortic valve stenosis with mild aortic valve regurgitation. Trivial loculated posterior pericardial effusion. Ordering Physician: Julien Reyna Referring Physician: Julien Reyna Performed By: Nick Chambers RCS 10/11/24 1023 Date Julien Reyna MD CC: Dr. Julien Reyna MD; Dr. Preet Farrar, DO Date Dictated: 10/10/24 0955 Date Transcribed: 10/11/24 1023 Sales Special Agent: Signed Normal [facility] Stress Reporton 10-10-2024 Stress Report [facility] [address] [place] [address] MR#: [id number] Acct: [id number] Name: DEONTE BLANCO Rep #: [id number] : 1955 69 From: Julien Reyna MD Primary Care: Dr. Preet Farrar DO Status: REG CLI Referring Dr: Julien Reyna MD Sex: F C Stress Test Report Date: 10/10/2024 Procedure: Exercise tolerance test/imaging study Indications: Coronary artery disease Consent: Per the patient Procedure: The patient exercised on a Murray protocol for 6 minutes and 1 second achieving a peak heart rate of 133 bpm (88% predicted maximal heart rate) with a peak blood pressure 210/88 mmHg and a peak MET capacity of 7.0 METs. The baseline ECG demonstrated sinus rhythm. The peak exercise ECG demonstrated no ischemic changes. Rare PVCs noted. The functional capacity was considered average. There was no complaint of chest discomfort during exercise or recovery. The examination was discontinued secondary to target heart rate being achieved. The patient was injected with 11.9 mCi of technetium 99m Cardiolite and subsequently rest SPECT Cardiolite nuclear imaging was obtained in the horizontal long, vertical long, and short axis views. Post-exercise, the patient was injected with 33.3 mCi of technetium 99m Cardiolite and subsequently stress SPECT Cardiolite nuclear imaging was obtained in the horizontal long, vertical long, and short axis views. A gated Cardiolite study at peak stress was obtained. Rest and stress SPECT Cardiolite nuclear imaging status post realignment, normalization, and attenuation correction, demonstrates the appearance of relative uniform tracer uptake and myocardial perfusion appearing within normal limits. There is end systolic thickening and brightening. The gated Cardiolite study demonstrates myocardial thickening and inward wall motion. The reported LVEF is 73%. Impression: 1. Technically adequate (percent predicted maximal heart rate greater than 85%) exercise tolerance test 2. Peak exercise ECG with no ischemic changes. Baseline hypertension with hypertensive response to exercise. 3. Rare PVCs noted 4. Rest and stress SPECT Cardiolite nuclear imaging demonstrate relative uniform tracer uptake and myocardial perfusion appearing within normal limits. 5. The gated Cardiolite study reports an LVEF of 73%. This note was generated with [employer] dictation software. It may contain incorrect words, spelling, and punctuation that were not noted in checking the note before signing. 10/10/24954 Date Julien Reyna MD CC: Dr. Julien Reyna MD; Dr. Preet Farrar DO Date Dictated: 10/10/24952 Date Transcribed: 10/10/24952 Sales Special Agent: JOZEF [facility] DEONTE BLANCO ([id number]) 1955 F Date Time Provider Department 10/07/24 11:00 AM [facility] During your visit today, we recorded [...] history review Reviewed and updated problem list, medical/surgical/family/soc ial history, medications, and allergies. Opioid use review [...] Concerns today: She is starting to see Clinical Trial Leader for opinion regarding her thyroid and fatigue [...] MEDICAL HISTORY (more content not included)... Normal [facility] CBC W Auto Differential pane l (Bld)on 10-05-2024 Basophils (Bld) [#/Vol] 0.07 10*3/uL Normal <0.11 [facility] Comment on above: Order Comment: Speci men Type: BLOOD SPECIMENOrdering Facility: [facility] Address: [address] [place] [address] Performed By: #### 5 7021-8 ####[facility] LABCLIA [id number] [place] [address] [place] Basophils/100 WBC (Bld) 0.7 % Normal [facility] Comment on above: Order Comment: Speci men Type: BLOOD SPECIMENOrdering Facility: [facility] Address: [address] [place] [address] Performed By: #### 5 7021-8 ####[facility] LABCLIA [id number] [place] [address] [place] Differential cell count method Nom (Bld) Auto Normal [facility] Comment on above: Order Comment: Speci men Type: BLOOD SPECIMENOrdering Facility: [facility] Address: [address] [place] [address] Performed By: #### 5 7021-8 ####[facility] LABCLIA [id number] [place] [address] [place] Eosinophils (Bld) [#/Vol] 0.21 10*3/uL Normal <0.46 [facility] Comment on above: Order Comment: Speci men Type: BLOOD SPECIMENOrdering Facility: [facility] Address: [address] [place] [address] Performed By: #### 5 7021-8 ####[facility] LABCLIA [id number] [place] [address] [place] Eosinophils/100 WBC (Bld) 2.2 % Normal [facility] Comment on above: Order Comment: Speci men Type: BLOOD SPECIMENOrdering Facility: [facility] Address: [address] [place] [address] Performed By: #### 5 7021-8 ####[facility] LABCLIA [id number] [place] [address] [place] Erythrocyte distribution width (RBC) [Ratio] 12.9 % Normal 11.5-15.0 [facility] Comment on above: Order Comment: Speci men Type: BLOOD SPECIMENOrdering Facility: [facility] Address: [address] [place] [address] Performed By: #### 5 7021-8 ####[facility] LABCLIA [id number] [place] [address] [place] Hematocrit (Bld) [Volume fraction] 39.9 % Normal 36.0-46.0 [facility] Comment on above: Order Comment: Speci men Type: BLOOD SPECIMENOrdering Facility: [facility] Address: [address] [place] [address] Performed By: #### 5 7021-8 ####[facility] LABIA [id number] [place] [address] [place] Hemoglobin (Bld) [Mass/Vol] 13.1 g/dL Normal 11.5-15.5 [facility] Comment on above: Order Comment: Speci men Type: BLOOD SPECIMENOrdering Facility: [facility] Address: [address] [place] [address] Performed By: #### 5 7021-8 ####[facility] LABIA [id number] [place] [address] [place] Immature granulocytes (Bld) [#/Vol] 0.06 10*3/uL Normal <0.10 [facility] Comment on above: Order Comment: Speci men Type: BLOOD SPECIMENOrdering Facility: [facility] Address: [address] [place] [address] Performed By: #### 5 7021-8 ####[facility] LABCLIA [id number] [place] [address] [place] Immature granulocytes/100 WBC (Bld) 0.6 % Normal [facility] Comment on above: Order Comment: Speci men Type: BLOOD SPECIMENOrdering Facility: [facility] Address: [address] [place] [address] Performed By: #### 5 7021-8 ####[facility] LABCLIA [id number] [place] [address] [place] Lymphocytes (Bld) [#/Vol] 2.55 10*3/uL Normal 1.00-4.00 [facility] Comment on above: Order Comment: Speci men Type: BLOOD SPECIMENOrdering Facility: [facility] Address: [address] [place] [address] Performed By: #### 5 7021-8 ####[facility] LABCLIA [id number] [place] [address] [place] Lymphocytes/100 WBC (Bld) 26.4 % Normal [facility] Comment on above: Order Comment: Speci men Type: BLOOD SPECIMENOrdering Facility: [facility] Address: [address] [place] [address] Performed By: #### 5 7021-8 ####[facility] LABIA [id number] [place] [address] [place] MCH (RBC) [Entitic mass] 30.2 pg Normal 26.0-34.0 [facility] Comment on above: Order Comment: Speci men Type: BLOOD SPECIMENOrdering Facility: [facility] Address: [address] [place] [address] Performed By: #### 5 7021-8 ####[facility] LABIA [id number] [place] [address] [place] MCHC (RBC) [Mass/Vol] 32.8 g/dL Normal 30.5-36.0 [facility] Comment on above: Order Comment: Speci men Type: BLOOD SPECIMENOrdering Facility: [facility] Address: [address] [place] [address] Performed By: #### 5 7021-8 ####[facility] LABIA [id number] [place] [address] [place] MCV (RBC) [Entitic vol] 91.9 fL Normal 80.0-100.0 [facility] Comment on above: Order Comment: Speci men Type: BLOOD SPECIMENOrdering Facility: [facility] Address: [address] [place] [address] Performed By: #### 5 7021-8 ####[facility] LABCLIA [id number] [place] [id number] [place] Monocytes (Bld) [#/Vol] 0.70 10*3/uL Normal <0.87 [facility] Comment on above: Order Comment: Speci men Type: BLOOD SPECIMENOrdering Facility: [facility] Address: [address] [place] [address] Performed By: #### 5 7021-8 ####[facility] LABCLIA [id number] [place] [address] [place] Monocytes/100 WBC (Bld) 7.3 % Normal [facility] Comment on above: Order Comment: Speci men Type: BLOOD SPECIMENOrdering Facility: [facility] Address: [address] [place] [address] Performed By: #### 5 7021-8 ####[facility] LABCLIA [id number] [place] [address] [place] Neutrophils (Bld) [#/Vol] 6.06 10*3/uL Normal 1.45-7.50 [facility] Comment on above: Order Comment: Speci men Type: BLOOD SPECIMENOrdering Facility: [facility] Address: [address] [place] [address] Performed By: #### 5 7021-8 ####[facility] LABCLIA [id number] [place] [address] [place] Neutrophils/100 WBC (Bld) 62.8 % Normal [facility] Comment on above: Order Comment: Speci men Type: BLOOD SPECIMENOrdering Facility: [facility] Address: [address] [place] [address] Performed By: #### 5 7021-8 ####[facility] LABCLIA [id number] [place] [address] [place] Nucleated RBC (Bld) [#/Vol] 10*3/uL Normal <0.01 [facility] Comment on above: Order Comment: Speci men Type: BLOOD SPECIMENOrdering Facility: [facility] Address: [address] [place] [address] Performed By: #### 5 7021-8 ####[facility] LABCLIA [id number] [place] [address] [place] Nucleated RBC/100 WBC (Bld) [Ratio] 0.0 /100 WBC Normal [facility] Comment on above: Order Comment: Speci men Type: BLOOD SPECIMENOrdering Facility: [facility] Address: [address] [place] [address] Performed By: #### 5 7021-8 ####[facility] LABIA [id number] [place] [address] [place] Platelet mean volume (Bld) [Entitic vol] 10.0 fL Normal 9.0-12.7 [facility] Comment on above: Order Comment: Speci men Type: BLOOD SPECIMENOrdering Facility: [facility] Address: [address] [place] [address] Performed By: #### 5 7021-8 ####[facility] LABIA [id number] [place] [address] [place] Platelets (Bld) [#/Vol] 327 10*3/uL Normal 150-400 [facility] Comment on above: Order Comment: Speci men Type: BLOOD SPECIMENOrdering Facility: [facility] Address: [address] [place] [address] Performed By: #### 5 7021-8 ####[facility] LABCLIA [id number] [place] [address] [place] RBC (Bld) [#/Vol] 4.34 10*6/uL Normal 3.90-5.20 [facility] Comment on above: Order Comment: Speci men Type: BLOOD SPECIMENOrdering Facility: [facility] Address: [address] [place] [address] Performed By: #### 5 7021-8 ####[facility] LABCLIA [id number] [place] [address] [place] WBC (Bld) [#/Vol] 9.65 10*3/uL Normal 3.70-11.00 [facility] Comment on above: Order Comment: Speci men Type: BLOOD SPECIMENOrdering Facility: [facility] Address: [address] [place] [address] Performed By: #### 5 7021-8 ####[facility] LABCLIA [id number] [place] [address] [place] Comprehensive metabolic 2000 panelon 10-05-2024 Albumin [Mass/Vol] 3.9 g/dL Normal 3.9-4.9 [facility] Comment on above: Order Comment: Speci men Type: BLOOD SPECIMENOrdering Facility: [facility] Address: [address] [place] [address] Performed By: #### 2 4331-1, 3024-7, 76747-7, 3051-0 ####[facility] LABCLIA [id number] [place] [address] [place] ALP [Catalytic activity/Vol] 92 U/L Normal 34-123 [facility] Comment on above: Order Comment: Speci men Type: BLOOD SPECIMENOrdering Facility: [facility] Address: [address] [place] [address] Performed By: #### 2 4331-1, 3024-7, 63285-3, 3051-0 ####[facility] LABCLIA [id number] [place] [address] [place] ALT [Catalytic activity/Vol] 15 U/L Normal 7-38 [facility] Comment on above: Order Comment: Speci men Type: BLOOD SPECIMENOrdering Facility: [facility] Address: [address] [place] [address] Performed By: #### 2 4331-1, 3024-7, 89032-3, 3051-0 ####[facility] LABCLIA [id number] [place] [address] [place] Anion gap [Moles/Vol] 11 mmol/L Normal 8-15 [facility] Comment on above: Order Comment: Speci men Type: BLOOD SPECIMENOrdering Facility: [facility] Address: [address] [place] [address] Performed By: #### 2 4331-1, 3023-7, 61141-1, 305-0 ####[facility] LABCLIA [id number] [place] [address] [place] AST [Catalytic activity/Vol] 18 U/L Normal 13-35 [facility] Comment on above: Order Comment: Speci men Type: BLOOD SPECIMENOrdering Facility: [facility] Address: [address] [place] [address] Performed By: #### 2 4331-1, 302-7, 51449-6, 305-0 ####[facility] LABCLIA [id number] [place] [address] [place] Bilirubin [Mass/Vol] 0.4 mg/dL Normal 0.2-1.3 [facility] Comment on above: Order Comment: Speci men Type: BLOOD SPECIMENOrdering Facility: [facility] Address: [address] [place] [address] Performed By: #### 2 4331-1, 302-7, 64929-2, 3051-0 ####[facility] LABCLIA [id number] [place] [address] [place] Calcium [Mass/Vol] 9.6 mg/dL Normal 8.5-10.2 [facility] Comment on above: Order Comment: Speci men Type: BLOOD SPECIMENOrdering Facility: [facility] Address: [address] [place] [address] Performed By: #### 2 4331-1, 3024-7, 38023-8, 3051-0 ####[facility] LABCLIA [id number] [place] [address] [place] Chloride [Moles/Vol] 104 mmol/L Normal 98-107 [facility] Comment on above: Order Comment: Speci men Type: BLOOD SPECIMENOrdering Facility: [facility] Address: [address] [place] [address] Performed By: #### 2 4331-1, 3024-7, 57027-0, 3051-0 ####[facility] LABCLIA [id number] [place] [address] [place] CO2 [Moles/Vol] 23 mmol/L Normal 22-30 [facility] Comment on above: Order Comment: Speci men Type: BLOOD SPECIMENOrdering Facility: [facility] Address: [address] [place] [address] Performed By: #### 2 4331-1, 3024-7, 86771-3, 3051-0 ####[facility] LABCLIA [id number] [place] [address] [place] Creatinine [Mass/Vol] 0.64 mg/dL Normal 0.58-0.96 [facility] Comment on above: Order Comment: Speci men Type: BLOOD SPECIMENOrdering Facility: [facility] Address: [address] [place] [address] Performed By: #### 2 4331-1, 3024-7, 94853-0, 3051-0 ####[facility] LABCLIA [id number] [place] [address] [place] Creatinine and Glomerular filtration rate.predicted panel (S/P/Bld) 96 mL/min/1.73m??? Normal >=60 [facility] Comment on above: Order Comment: Abimbola diaz Type: BLOOD SPECIMENOrdering Facility: [facility] Address: [address] [place] [address] Result Comment: Ana Paula mated Glomerular Filtration [...] actual GFR. Performed By: #### 2 4331-1, 3024-7, 44020-9, 305-0 ####[facility] LABCLIA [id number] [place] [address] [place] Glucose [Mass/Vol] 170 mg/dL High 74-99 [facility] Comment on above: Order Comment: Abimbola diaz Type: BLOOD SPECIMENOrdering Facility: [facility] Address: [address] [place] [address] Result Comment: The [place] Diabetes Association (ADA) provides guidance for cutoff [...] Standards of Medical Care in Diabetes 2016, [place] Diabetes Association. Diabetes Care. 2016.39(Suppl 1). Performed By: #### 2 4331-1, 3024-7, 81325-7, 305-0 ####[facility] LABCLIA [id number] [place] [id number] [place] Potassium [Moles/Vol] 4.4 mmol/L Normal 3.7-5.1 [facility] Comment on above: Order Comment: Speci men Type: BLOOD SPECIMENOrdering Facility: [facility] Address: [address] [place] [address] Performed By: #### 2 4331-1, 3024-7, 05306-1, 3051-0 ####[facility] LABCLIA [id number] [place] [address] [place] Protein [Mass/Vol] 6.8 g/dL Normal 6.3-8.0 [facility] Comment on above: Order Comment: Speci men Type: BLOOD SPECIMENOrdering Facility: [facility] Address: [address] [place] [address] Performed By: #### 2 4331-1, 3024-7, 98895-4, 3051-0 ####[facility] LABCLIA [id number] [place] [address] [place] Sodium [Moles/Vol] 138 mmol/L Normal 136-144 [facility] Comment on above: Order Comment: Speci men Type: BLOOD SPECIMENOrdering Facility: [facility] Address: [address] [place] [address] Performed By: #### 2 4331-1, 3024-7, 32825-1, 3051-0 ####[facility] LABCLIA [id number] [place] [id number] [place] Urea nitrogen [Mass/Vol] 15 mg/dL Normal 7-21 [facility] Comment on above: Order Comment: Speci men Type: BLOOD SPECIMENOrdering Facility: [facility] Address: [address] [place] [address] Performed By: #### 2 4331-1, 3024-7, 42012-2, 3051-0 ####[facility] LABCLIA [id number] [facility] [address] [address] [place] HbA1c (Bld)on 10-05-2024 Average glucose Estimated from glycated hemoglobin (Bld) [Mass/Vol] 163 mg/dL Normal [facility] Comment on above: Order Comment: Abimbola diaz Type: BLOOD SPECIMENOrdering Facility: [facility] Address: [address] [place] [address] Result Comment: eAG: (Estimated average glucose) is a calculated value from HgbA1c and is sales representative jewelry of the average blood glucose level in the last 2-3 month period. Performed By: #### 5 5454-3 ####[facility] LABCLIA [id number] [place] [address] [place] [facility] HbA1c (Bld) [Mass fraction] 7.3 % High 4.3-5.6 [facility] Comment on above: Order Comment: Abimbola diaz Type: BLOOD SPECIMENOrdering Facility: [facility] Address: [address] [place] [address] Result Comment: [place] Diabetes Association guidelines indicate that patients with HgbA1c in the range 5.7-6.4% are at increased risk for development of diabetes, and intervention by lifestyle modification may be beneficial. HgbA1c greater or equal to 6.5% is considered diagnostic of diabetes. Performed By: #### 5 5454-3 ####[facility] LABCLIA [id number] [place] [address] [place] [facility] Lipid 1996 panelon Cholesterol [Mass/Vol] 122 mg/dL Normal <200 [facility] Comment on above: Order Comment: Abimbola diaz Type: BLOOD SPECIMENOrdering Facility: [facility] Address: [address] [place] [address] Result Comment: <200 mg/dL, Desirable 200-239 mg/dL, Borderline high >239 mg/dL, High Performed By: #### 2 4331-1, 3024-7, 42786-5, 3051-0 ####[facility] LABCLIA [id number] [address] [place] Cholesterol in HDL [Mass/Vol] 65 mg/dL Normal >39 [facility] Comment on above: Order Comment: Norylillian diaz Type: BLOOD SPECIMENOrdering Facility: [facility] Address: [address] [place] [address] Result Comment: 40-5 9 mg/dL, Acceptable >59 mg/dL, High: Negative risk factor for coronary heart disease <40 mg/dL, Low: Positive risk factor for coronary heart disease Performed By: #### 2 4331-1, 3024-7, 64310-3, 305-0 ####[facility] LABCLIA [id number] [place] [address] [place] Cholesterol in LDL [Mass/Vol] 36 mg/dL Normal <100 [facility] Comment on above: Order Comment: Abimbola emily Type: BLOOD SPECIMENOrdering Facility: [facility] Address: [address] [place] [address] Result Comment: <100 mg/dL, Optimal 100-129 mg/dL, Near optimal/above optimal 130-159 mg/dL, Borderline high 160-189 mg/dL, High >189 mg/dL, Very high Secondary prevention optimal LDL Cholesterol levels are recommended to be < 70 mg/dL Performed By: #### 2 4331-1, 3023-7, 05728-4, 305-0 ####[facility] LABCLIA [id number] [place] [address] [place] Cholesterol in LDL/Cholesterol in HDL [Mass ratio] 0.55 {ratio} Normal <2.54 [facility] Comment on above: Order Comment: Norylillian diaz Type: BLOOD SPECIMENOrdering Facility: [facility] Address: [address] [place] [address] Result Comment: Kyra glover: 1. National Cholesterol Education Program ATP III Guideline At-A-Glance Quick Desk Reference: National Heart, Lung, and Blood [place]. National Institutes of Health. 2001: NIH Publication No. 01-3305. 2. An International Atherosclerosis Society position paper: global recommendations for the management of dyslipidemia: executive summary, Atherosclerosis. 2014: 232(2):410-413. Performed By: #### 2 4331-1, 3024-7, 00841-7, 305-0 ####[facility] LABCLIA [id number] [address] [address] [place] Cholesterol in VLDL [Mass/Vol] 21 mg/dL Normal <30 [facility] Comment on above: Order Comment: Speci men Type: BLOOD SPECIMENOrdering Facility: [facility] Address: [address] [place] [address] Performed By: #### 2 4331-1, 3023-7, 31884-5, 305-0 ####[facility] LABCLIA [id number] [address] [address] [place] Cholesterol non HDL [Mass/Vol] 57 mg/dL Normal <130 [facility] Comment on above: Order Comment: Speci men Type: BLOOD SPECIMENOrdering Facility: [facility] Address: [address] [place] [address] Result Comment: <130 mg/dL, Optimal 130-159 mg/dL, Near optimal/above optimal 160-189 mg/dL, Borderline high 190-219 mg/dL, High >219 mg/dL, Very high Secondary prevention optimal non HDL Cholesterol levels are recommended to be <100 mg/dL Performed By: #### 2 4331-1, 3023-7, 91162-1, 305-0 ####[facility] LABCLIA [id number] [address] [address] [place] Cholesterol.total/Chol esterol in HDL [Mass ratio] 1.88 {ratio} Normal <5.10 [facility] Comment on above: Order Comment: Speci men Type: BLOOD SPECIMENOrdering Facility: [facility] Address: [address] [place] [address] Performed By: #### 2 4331-1, 3023-7, 59061-1, 3051-0 ####[facility] LABCLIA [id number] [address] [address] [place] FASTING TIME 10 hrs Normal [facility] Comment on above: Order Comment: Speci men Type: BLOOD SPECIMENOrdering Facility: [facility] Address: [address] [place] [address] Performed By: #### 2 4331-1, 3023-7, 61047-8, 305-0 ####[facility] LABCLIA [id number] [place] [address] [place] Triglyceride [Mass/Vol] 105 mg/dL Normal <150 [facility] Comment on above: Order Comment: Speci men Type: BLOOD SPECIMENOrdering Facility: [facility] Address: [address] [place] [address] Result Comment: <150 mg/dL, Normal 150-199 mg/dL, Borderline high 200-499 mg/dL, High >499 mg/dL, Very high Performed By: #### 2 4331-1, 7, , 305-0 ####[facility] LABCLIA [id number] [place] [address] [place] T3Free SerPl-mCncon 10-05-19 25 Free T3 [Mass/Vol] 2.5 pg/mL Normal 2.3-4.1 [facility] Comment on above: Order Comment: Speci men Type: BLOOD SPECIMENOrdering Facility: [facility] Address: [address] [place] [address] Performed By: #### 2 4331-1, 7, , 305-0 ####[facility] LABCLIA [id number] [place] [address] [place] T4 Free SerPl-mCncon 025 Free T4 [Mass/Vol] 0.7 ng/dL Low 0.9-1.7 [facility] Comment on above: Order Comment: Speci men Type: BLOOD SPECIMENOrdering Facility: [facility] Address: [address] [place] [address] Performed By: #### 2 4331-1, 3023-7, 54254-8, 3051-0 ####[facility] LABCLIA [id number] [place] [address] [place] TSH SerPl-aCncon 10-05-2024 TSH Qn 1.550 m[IU]/L Normal 0.270-4.20 0 [facility] Comment on above: Order Comment: Speci men Type: BLOOD SPECIMENOrdering Facility: [facility] Address: [address] [place] [address] Performed By: #### 3 016-3 ####[facility] LABCLIA [id number] [address] OF [place] CNPNon 10-04-2024 CNPN [facility]phone [facility] DEONTE BLANCO ([id number]) 1955 F Date Time Provider Department 10/04/24 PREET FARRAR [facility] During your visit today, we recorded [...] Bruce MA - Fully Assessed Primary Visit Diagnosis:Hyperlipidemia, mixed [E78.2] Other Visit Diagnoses:Hypothyroidism, unspecified type [E03.9] 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, without long-term current use of insulin (HCC) [E08.69] Order(s):THYROID STIMULATING HORMONE [SQTSH] Order #: [id number] FUTURE LIPID PANEL BASIC [SQLIPB] Order #: [id number] FUTURE COMPREHENSIVE METABOLIC PANEL [SQCMP] Order #: [id number] FUTURE HEMOGLOBIN A1C [YTRPB0O] Order #: [id number] FUTURE COMPLETE BLOOD COUNT AND DIFFERENTIAL [SQCBCDIF] Order #: [id number] FUTURE T3, FREE [SQFREET3] Order #: [id number] FUTURE T4 FREE/FREE THYROXINE [SQFT4] Order #: [id number] FUTURE Prescriptions as of 10/04/2024 - glimepiride [...] on fasting at 8 am - Insulin Peyton, Disposable, (BD ULTRA-FINE MARIA T PEN NEEDLE) [...] deficiency [E (more content not included)... Normal [facility] Senior Biostatistician Office Visit Reporton 09-13-2024 Senior Biostatistician Office Visit Report [facility] [address], [address] [place] [address] OFFICE VISIT Date of Service: 09/13/24 MR#: [id number] Acct: [id number] Name: DEONTE BLANCO Rep #: [id number] : 1955 Provider: Dr. Anushka nolan MD Age/Sex: 69/F Location: [facility] Status: Signed Intake Vital Signs 08/17/24 08:30 09/13/24 13:58 Height 5 ft 5 ft Weight: 181 lb 181 lb BMI 35.3 35.3 BP 139/70 H 153/69 H Blood Pressure Location Rt brachial Rt brachial Position Sitting Sitting Respiration 18 18 Pulse 62 69 Pulse Source Monitor Pulse Oximetry (%) 96 Oxygen Delivery Method room air Intake Visit Reasons: Consult Chief Complaint: FU consult medications Is patient in pain?: No Allergies metformin Allergy (Severe, Verified 09/13/24 14:02) Hives prednisone Allergy (Intermediate, Verified 09/13/24 14:02) Itching aspirin Allergy (Verified 09/13/24 14:02) mouth swelling gluten Allergy (Verified 09/13/24 14:02) Abd cramps/diarrhea ibuprofen Allergy (Verified 09/13/24 14:02) mouth swelling Sulfa (Sulfonamide Antibiotics) Allergy (Verified 09/13/24 14:02) pt can't remember Medications ???Medication ???Instructions ???Recorded ???Confirmed ???Type ergocalciferol (vitamin D2) 1,250 50,000 unit PO MOFR SUPPLEMENT 12/18/20 09/13/24 History mcg (50,000 unit) capsule thyroid (pork) 120 mg tablet 120 tablet PO DAILY THYROID 12/18/20 09/13/24 History atorvastatin 80 mg tablet 80 mg PO QHS cholesterol #30 tabs 11/04/22 09/13/24 Rx clopidogrel 75 mg tablet 75 mg PO DAILY BLOOD THINNER #30 11/04/22 09/13/24 Rx tabs carvedilol 6.25 mg tablet 6.25 mg PO BID 03/05/24 09/13/24 History spironolactone 25 mg tablet 25 mg PO QHS 03/05/24 09/13/24 History pantoprazole 40 mg tablet,delayed 40 mg PO DAILY #30 tabs 05/22/24 09/13/24 Rx release vitamin C 30 mg-zinc citrate 1.1 1 tab PO DAILY 05/22/24 09/13/24 History mg-elderberry 25 mg chewable tablet (Sambucus Elderberry) sitagliptin phosphate 100 mg 100 mg PO QDAY 07/07/24 09/13/24 History tablet (Januvia) thyroid (pork) 30 mg tablet 30 mg PO MOWEFR 07/21/24 09/13/24 History (Wray Thyroid) glimepiride 2 mg tablet 3 mg PO BID 08/10/24 09/13/24 History ondansetron 4 mg disintegrating 4 mg PO Q8H PRN 08/12/24 09/13/24 History tablet insulin glargine 100 unit/mL (3 16 unit subcut DAILY 08/17/24 09/13/24 History mL) subcutaneous pen (Lantus Solostar U-100 Insulin) losartan 25 mg tablet 25 mg PO QDAY #90 tabs 08/17/24 09/13/24 Rx Nurse's Note: FU medication consult [facility] Medical History (Updated 09/13/24 @ 14:[address] Anushka Isaac MD) First degree AV block Abnormal EKG Hypothyroidism [...] Ambulatory dysfunction Intractable back pain Surgical History (Updated 09/13/24 @ 14:[address] Anushka Isaac MD) History of back surgery ( 2019) Hx of umbilical hernia repair S/P tubal ligation S/P cholecystectomy S/P tonsillectomy and adenoidectomy History of lumbar fusion History of lumbar discectomy Family History Mother Heart disease Alzheimers disease Father Heart disease Hypertension CAD (coronary artery disease) Myocardial infarction Thyroid disorder Diabetes Sister Cancer Social History adopted: No household members: none number of children: 3 sexually active: Yes Smoking Status: Former smoker alcohol intake: current substance use type: marijuana and other details: Medical cannabis, usually daily. seatbelt use: always do you feel safe at home: Yes HPI Consult Details: DEONTE BLANCO is a 69 year old who presents for consultation for follow up of diagnosis of hyperplasia. she denies any bleeding. (more content not included)... Normal [facility] 09-12-2024 [facility] Telephone ([facility]) FRANCISDEONTE March ([id number]) 1955 F Date Time Provider Department 09/12/24 PREET FARRAR [facility] During your visit today, we recorded [...] on fasting at 8 am - Insulin Peyton, Disposable, (BD ULTRA-FINE MARIA T PEN NEEDLE) [...] by SAHARA MEJIA LPN on 10/04/24 Normal [facility] Carotid Duplex Ultrasoundon 09-06-2024 Carotid Duplex Ultrasound [facility]ovascular Services [address] [place] [address] Carotid Duplex Ultrasound 09/06/24 0850 MR#: [id number] Acct: [id number] Name: DEONTE BLANCO Rep #: [id number] : 1955 69 From: Hermes Block MD Attending Dr: Dr. Julien Reyna MD Status: REG CLI Ordering Dr: Julien Reyna MD Date: 09/06/24 Location: [facility] Sex: F C Admitted: Reason For Study: Carotid Artery Stenosis Rt. Velocities/BP Lt. Velocities/BP Prox CCA 58.9/12.6 cm/sec. Prox CCA 69.9/13.8 cm/sec. Mid CCA 70.5/15.7 cm/sec. Mid CCA 71.0/18.2 cm/sec. Dist CCA 67.6/15.7 cm/sec. Dist CCA 57.8/11.7 cm/sec. Prox ICA 85.6/23.2 cm/sec. Known Lt ICA Occlusion. Mid ICA 79.0/18.5 cm/sec. Prox ECA 335.8/69.1 cm/sec. Dist ICA 80.9/24.2 cm/sec. Lt. Vert. 140.3/43.7 cm/sec. Rt. ICA/CCA = 1.2. Prox ECA 159.5/24.3 cm/sec. Rt. Vert. 50.6/9.1 cm/sec. Right Extracranial There is heterogeneous, irregular atherosclerotic plaque noted in the right common carotid artery. There is heterogeneous, irregular atherosclerotic plaque noted in the right internal carotid artery. There is heterogeneous, irregular atherosclerotic plaque noted in the right external carotid artery. Antegrade flow is noted in the right vertebral artery. Left Extracranial There is homogeneous, smooth atherosclerotic plaque noted in the left common carotid artery. The left internal carotid artery is occluded. There is heterogeneous, irregular atherosclerotic plaque noted in the left external carotid artery. Antegrade flow is noted in the left vertebral artery. Procedure Carotid Duplex 93645. This is a Carotid Duplex examination using B-mode, color flow and specral Doppler. The exam was diagnostic. Exam performed in department. VL/Carotid Duplex Ultrasound Interpretation Summary Mild (<50%) stenosis right extracranial internal carotid. 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 Patent and antegrade vertebrals bilaterally. Ordering Physician: Julien Reyna Referring Physician: Preet Farrar Performed By: Iker Adame, T 09/06/24 1331 Date Hermes Block MD CC: Dr. Julien Reyna MD; Dr. Preet Farrar DO Date Dictated: 09/06/24 0850 Date Transcribed: 09/06/24 1331 Sales Special Agent: Signed Normal [facility] Renal Artery Duplex Ultrasou ndon 09-06-2024 Renal Artery Duplex Ultrasound [facility] Cardiovascular Services [address] [place] [address] Renal Artery Duplex Ultrasound 09/06/24 0822 MR#: [id number] Acct: [id number] Name: DEONTE BLANCO Rep #: [id number] : 1955 69 From: Hermes Block MD Attending Dr: Dr. Julien Reyna MD Status: REG CLI Ordering Dr: Julien Reyna MD Date: 09/06/24 Location: [facility] Sex: F C Admitted: Reason For Study: HTN Right Renal Artery Left Renal Artery Right renal artery ostium Left renal artery ostium 265.3/45.5 161.6/29.9 RSV/EDV. PSV/EDV. Right renal artery proximal Left renal artery proximal PSV/EDV 165.9/38.6 PSV/EDV. 296.7/53.4 . Right renal artery mid 161.3/38.0 Left renal artery mid 254.2/37.5 PSV/EDV. PSV/EDV . Right renal artery distal Left renal artery distal 137.8/34.3 169.0/44.6 PSV/EDV. PSV/EDV. Right RAR 2.72. Left RAR 4.77. Right Renal Parenchyma Left Renal Parenchyma Upper Pole Medula 61.1/15.8 Left upper pole medulla 46.5/12.8 PSV/EDV. PSV/EDV . Right upper pole medulla EDR 0.30 . Left upper pole medulla EDR 0.30 . Right upper pole medulla R.I. Left upper pole medulla R.I. 0.72 . 0.74 . UP Cortex 53.0/15.4 PSV/EDV. Upper Nayan Cortx 36.5/10.6 PSV/EDV. Left upper pole cortex EDR 0.30 . Right upper pole cortex EDR 0.30 . Left upper pole cortex R.I. 0.71 . Right upper pole cortex R.I. 0.71 . Left lower Pole medulla 68.5/19.3 Right lower Pole medulla 57.3/17.1 PSV/EDV . PSV/EDV . Left lower pole medulla EDR 0.30 . Right lower pole medulla EDR 0.30 . Left lower pole medulla R.I. 0.72 . Right lower pole medulla R.I. Lower Pole Cortx 33.5/10.2 PSV/EDV. 0.70 . Left lower pole cortex EDR 0.30 . Lower Pole Cortex 44.3/10.6 Left lower pole cortex R.I. 0.69 . PSV/EDV. Left Renal Hilar Right lower pole cortex EDR 0.20 . LT Hilar avg 108.6/36.0 PSV/EDV . Right lower pole cortex R.I. 0.76 . Left hilar acceleration time 30 Right Renal Hilar m/sec. Right Hilar avg 100.5/27.8 PSV/EDV. Left Renal Dimensions Right hilar acceleration time 30 Left kidney size 10.36 cm . m/sec. Left cortical dimension 1.43 cm . Right Renal Dimensions Right kidney size 11.11 cm . Right cortical dimension 1.52 cm . Aorta Proximal abdominal aorta 2.22 x 2.30 cm . Proximal abdominal aorta peak systolic velocity is 58.9 cm/sec . Distal abdominal aorta 1.21 x 1.17 cm . Distal abdominal aorta peak systolic velocity is 62.2 cm/sec . VL/Renal Artery Duplex Ultrasound Interpretation Summary Right renal artery patent with normal velocities and no evidence of stenosis. Left renal artery patent with > 60% stenosis. Right renal vein patent. Left renal vein patent. Right kidney normal in size. Left kidney normal in size. Ordering Physician: Julien Reyna Referring Physician: Preet Farrar Performed By: Iker Adame, T 09/06/241335 Date Hermes Block MD CC: Dr. Julien Reyna MD; Dr. Preet Farrar DO Date Dictated: 09/06/24 0822 Date Transcribed: 09/06/241335 Sales Special Agent: Signed Normal [facility] 12 Lead EKG performed by [facility] on 08-17-2024 12 Lead EKG performed by [facility] [address] [place] [address] 12 Lead EKG performed by [facility] 08/17/24 1009 MR#: [id number] Acct: [id number] Name: DEONTE BLANCO Rep #: [id number] : 1955 68 From: Julien Reyna MD Attending Dr: Dr. Julien Reyna MD Status: DEP AMB Ordering Dr: Julien Reyna MD Date: 08/17/24 Location: [facility] [place] Sex: F C Admitted: BMS/12 Lead EKG performed by [facility] ECG Report Interpretation S inus Rhythm -First degree A-V block Marleen = 252BORDERLINE RHYTHMElectronically signed on 10/24/2024 at 11:[address] Julien Reyna [employer] Version 8610 10/24/24 1120 Date Julien eRyna MD CC: Dr. Preet Farrar DO Date Dictated: 08/17/24 1009 Date Transcribed: 08/17/24 1009 Sales Special Agent: JOZEF Signed Normal [facility] Cardiology Visit Reporton Cardiology Visit Report [facility] [address] [place] [address] OFFICE VISIT Date of Service: 08/17/24 MR#: [id number] Acct: [id number] Name: DEONTE BLANCO Rep #: [id number] : 1955 Provider: Dr. Julien Reyna MD Age/Sex: 68/F Location: [facility] Status: Signed HPI HPI History of Present Illness Details: This lady is here to establish cardiac care with us. She has history of atherosclerotic vascular disease with documented carotid artery disease and renal artery disease. History of diabetes mellitus, CVA, hypertension, dyslipidemia and hypothyroidism. She is an ex-smoker, quit 2 years ago. Denies any chest pains either at rest or with exertion. Denies any shortness of breath. According to her, she walks on the treadmill for 30 minutes every day. Denies orthopnea or PND. No ankle edema. No palpitations. No lightheadedness or dizziness. No syncope or presyncope. Intake Vital Signs 07/26/24 06:31 08/10/24 09:36 08/17/24 08:30 Height 5 ft 5 ft 5 ft Weight: 181 lb BMI 35.3 BP 139/70 H Blood Pressure Location Rt brachial Position Sitting Respiration 18 Pulse 62 Intake Visit Reasons: Est Care (self) Window Tinter Required: No Accompanied by: Self Is patient in pain?: No Allergies metformin Allergy (Severe, Verified 08/17/24 09:59) Hives prednisone Allergy (Intermediate, Verified 08/17/24 09:59) Itching aspirin Allergy (Verified 08/17/24 09:59) mouth swelling gluten Allergy (Verified 08/17/24 09:59) Abd cramps/diarrhea ibuprofen Allergy (Verified 08/17/24 09:59) mouth swelling Sulfa (Sulfonamide Antibiotics) Allergy (Verified 08/17/24 09:59) pt can't remember Medications ???Medication ???Instructions ???Recorded ???Confirmed ???Type ergocalciferol (vitamin D2) 1,250 50,000 unit PO MOFR SUPPLEMENT 12/18/20 08/17/24 History mcg (50,000 unit) capsule thyroid (pork) 120 mg tablet 120 tablet PO DAILY THYROID 12/18/20 08/17/24 History atorvastatin 80 mg tablet 80 mg PO QHS cholesterol #30 tabs 11/04/22 08/17/24 Rx clopidogrel 75 mg tablet 75 mg PO DAILY BLOOD THINNER #30 11/04/22 08/17/24 Rx tabs carvedilol 6.25 mg tablet 6.25 mg PO BID 03/05/24 08/17/24 History spironolactone 25 mg tablet 25 mg PO QHS 03/05/24 08/17/24 History pantoprazole 40 mg tablet,delayed 40 mg PO DAILY #30 tabs 05/22/24 08/17/24 Rx release vitamin C 30 mg-zinc citrate 1.1 1 tab PO DAILY 05/22/24 08/17/24 History mg-elderberry 25 mg chewable tablet (Sambucus Elderberry) sitagliptin phosphate 100 mg 100 mg PO QDAY 07/07/24 08/17/24 History tablet (Januvia) thyroid (pork) 30 mg tablet 30 mg PO MOWEFR 07/21/24 08/17/24 History (Wray Thyroid) glimepiride 2 mg tablet 3 mg PO BID 08/10/24 08/17/24 History ondansetron 4 mg disintegrating 4 mg PO Q8H PRN 08/12/24 08/17/24 History tablet insulin glargine 100 unit/mL (3 16 unit subcut DAILY 08/17/24 08/17/24 History mL) subcutaneous pen (Lantus Solostar U-100 Insulin) Ejection fraction %: 70 Have you fallen in the past year?: No PFSH Medical History (Updated 08/17/24 @ 10:[address] Julien Reyna MD) Hypothyroidism Simple endometrial hyperplasia without atypia Encounter [...] use Head injury Near syncope Elevated troponin Abnormal EKG Hyponatremia Prolonged QT interval Polyneuropathy Occlusion of left internal carotid artery Ischemic stroke 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 Irritable bowel syndrome Celiac disease Ulcerative colitis Muscle spasm Hypertension Vitamin D deficiency Diabetes mellitus Lumbar spinal stenosis Lumbar disc herniation with radiculopathy Ambulatory dysfunction Intractable back pain Surgical History History of back surgery ( 2019) Hx of umbilical hernia repair S/P tubal ligation S/P cholecystectomy S/P tonsillectomy and adenoidectomy History of lumbar fusion History of lumbar discectomy Family History Mother Heart disease Alzheimers disease Father Heart disease Hypertension CAD (coronary artery disease) Myocardial infarction Thyroid disorder Diabetes Sister Cancer Social History (Reviewed 08/17/24 @ 10:07 (more content not included)... [facility] 08-11-2024 CNOV Office Visit (ENWSTR ) DEONTE BLANCO ([id number]) 1955 F Date Time Provider Department 08/11/24 [...] pill . Lifestyle -Exercise: 30 mins on RVX daily -Diet: Breakfast: 3 eggs, 1 slice [...] D de (more content not included)... Normal [facility] Senior Biostatistician Office Visit Reporton 08-10-2024 Senior Biostatistician Office Visit Report [facility] [address], [address] [place] [address] OFFICE VISIT Date of Service: 08/10/24 MR#: [id number] Acct: [id number] Name: DEONTE BLANCO Rep #: [id number] : 1955 Provider: MARAH barriga Age/Sex: 68/F Location: [facility] [facility] Status: Signed Intake Vital Signs 07/07/24 13:26 07/26/24 06:31 08/10/24 09:30 08/10/24 09:36 Height 5 ft 5 ft 5 ft 5 ft Weight: 181 lb 8 oz BMI 35.4 BP 132/74 H Intake Visit Reasons: 2 wk d C possible hysteroscopy Chief Complaint: 2 Week d c Window Tinter Required: No Is patient in pain?: No Allergies metformin Allergy (Severe, Verified 08/10/24 09:30) Hives prednisone Allergy (Intermediate, Verified 08/10/24 09:30) Itching aspirin Allergy (Verified 08/10/24 09:30) mouth swelling gluten Allergy (Verified 08/10/24 09:30) Abd cramps/diarrhea ibuprofen Allergy (Verified 08/10/24 09:30) mouth swelling Sulfa (Sulfonamide Antibiotics) Allergy (Verified 08/10/24 09:30) pt can't remember Medications ???Medication ???Instructions ???Recorded ???Confirmed ???Type ergocalciferol (vitamin D2) 1,250 50,000 unit PO MOFR SUPPLEMENT 12/18/20 08/10/24 History mcg (50,000 unit) capsule thyroid (pork) 120 mg tablet 120 tablet PO DAILY THYROID 12/18/20 08/10/24 History atorvastatin 80 mg tablet 80 mg PO QHS cholesterol #30 tabs 11/04/22 08/10/24 Rx clopidogrel 75 mg tablet 75 mg PO DAILY BLOOD THINNER #30 11/04/22 08/10/24 Rx tabs carvedilol 6.25 mg tablet 6.25 mg PO BID 03/05/24 08/10/24 History spironolactone 25 mg tablet 25 mg PO QHS 03/05/24 08/10/24 History clonidine HCl 0.1 mg tablet 0.1 mg PO Q8H PRN PRN blood 05/22/24 08/10/24 History pressure pantoprazole 40 mg tablet,delayed 40 mg PO DAILY #30 tabs 05/22/24 08/10/24 Rx release vitamin C 30 mg-zinc citrate 1.1 1 tab PO DAILY 05/22/24 08/10/24 History mg-elderberry 25 mg chewable tablet (Sambucus Elderberry) sitagliptin phosphate 100 mg 100 mg PO QDAY 07/07/24 08/10/24 History tablet (Januvia) thyroid (pork) 30 mg tablet 30 mg PO MOWEFR 07/21/24 08/10/24 History (Wray Thyroid) glimepiride 2 mg tablet 3 mg PO BID 08/10/24 History insulin glargine 100 unit/mL (3 18 unit subcut DAILY 08/10/24 08/10/24 History mL) subcutaneous pen (Lantus Solostar U-100 Insulin) Is last menstrual period known: No Post menopausal: Yes Patient : No : No PFSH Medical History Wears glasses Post-menopausal Marijuana use Insulin dependent diabetes mellitus Thyroid disease Fatty liver High cholesterol Ulcerative colitis GERD (gastroesophageal reflux disease) Leg cramps History of echocardiogram Hypertension PONV (postoperative nausea and vomiting) Marijuana smoker Anxiety Depression Diabetes Former smoker Stroke/cerebrovascular accident (11/02/22) Former tobacco use Head injury Near syncope Elevated troponin Abnormal EKG Hyponatremia Prolonged QT interval Polyneuropathy Occlusion of left internal carotid artery Ischemic stroke 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 Irritable bowel syndrome Celiac disease Ulcerative colitis Muscle spasm Hypothyroidism Hypertension Vitamin D deficiency Diabetes mellitus Lumbar spinal stenosis Lumbar disc herniation with radiculopathy Ambulatory dysfunction Intractable back pain Surgical History History of back surgery ( 2019) Hx of umbilical hernia repair S/P tubal ligation S/P cholecystectomy S/P tonsillectomy and adenoidectomy History of lumbar fusion History of lumbar discectomy Family History Mother Heart disease Father Heart disease Hypertension CAD (coronary artery disease) Myocardial infarction Thyroid disorder Diabetes Social History adopted: No household members: none number of children: 3 sexually active: Yes Smoking Status: Former smoker alcohol intake: never substance use type: marijuana and other details: Medical cannabis, usually daily. seatbelt use: always do you feel safe at home: Yes HPI 2 wk d C possible hysteroscopy Details: DEONTE BLANCO is a 68 year old who presents for postop 2 wk D C polypectomy per Dr Isaac. She denies any pain, spotting or bleeding. Polyp pathology was simple hyperplasia without atypia. History 3 Elective abortions Hx Para 3 Spontaneous abortions Hx # Term Pregnancies Ectopic pregnancies Hx # Pregnancies Multiple births # of living children 3 Past Pregnancies Del. Date Name GA/Weeks Outcome Route Bth Weight Gen Labor Lg (more content not included)... Normal [facility] Bedside Glucoseon 07-26-2024 FINGERSTICK GLU 171 mg/dL High 74-106 [facility] Comment on above: Result Comment: CARIN DYER OF PATIENT CARE PER NURSING PROTOCOL Performed By: #### L 501.080 #### [facility] [address] [place], [place], [address] Discharge Instructionon 06-29 Discharge Instruction [facility] Medical Records Department [address] [place] [address] Instructions for Home/Discharge Instructions 07/26/24 0841 MR#: [id number] Acct: [id number] Name: DEONTE BLANCO Rep #: [id number] : 1955 68 From: Anushka Isaac MD PCP: Dr. Preet Farrar, DO Status:REG [facility] Discharge Instructions Diet Discharge Diet: No restrictions Activity Discharge Activity: Return to Normal Activity, May Shower and May Take a Tub Bath (after 1 week) May resume sexual activity in: 1-2 weeks Weight Bearing Status: Weight bearing as tolerated Lifting Restrictions: none Dressing / Incision Call your doctor if you observe: Fever of 101 or Higher, Using more than 1 pad per hour, Shortness of breath and Uncontrolled pain Follow Up Care Please Follow Up With: Anushka Isaac MD When: Call [phone] to schedule appointment. Test Results: Test results from this visit will be discussed in further detail at your follow-up appointment, if applicable. Discharge Plan Admission Attending Provider: Anushka Isaac Primary Care Provider: Preet Farrar Instructions Print Language: Finnish Discharge Orders/Prescriptions Prescriptions: No Action Januvia 100 mg tablet 100 mg PO QDAY thyroid (pork) 120 MG tablet 120 tablet PO DAILY Rx Instructions: DOES NOT TAKE ON SATURDAYS ergocalciferol (vitamin D2) 50,000 UNIT capsule 50,000 unit PO MOFR atorvastatin 80 mg Tablet 80 mg PO QHS Qty: 30 2RF clopidogrel 75 mg Tablet 75 mg PO DAILY Qty: 30 2RF carvedilol 6.25 mg tablet 6.25 mg PO BID spironolactone 25 mg tablet 25 mg PO QHS glimepiride 2 mg tablet 2 mg PO BID Qty: 60 0RF Sambucus Elderberry 30-1.1-25 mg tablet,chewable 1 tab PO DAILY clonidine HCl 0.1 mg tablet 0.1 mg PO Q8H PRN PRN (Reason: blood pressure) pantoprazole 40 mg tablet,delayed release (DR/EC) 40 mg PO DAILY Qty: 30 0RF insulin glargine [Lantus Solostar U-100 Insulin] 100 unit/mL (3 mL) insulin pen 16 unit subcut DAILY thyroid (pork) [Wray Thyroid] 30 mg tablet 30 mg PO MOWEFR Other Ambulatory Orders: 12 Lead EKG (Routine) Timeframe: 20240721 Location: None Selected Ordered By: Dr. Anushka Isaac Referrals / Follow Up: Preet Farrar DO [Primary Care Provider] - Disposition Disposition (needs filled in before D/C Order can be placed): Home, Self Care 07/26/24840 Anushka Isaac MD CC: Dr. Preet Farrar DO Signed [facility] MR/POSTOP.ANEon 07-26-2024 MR/POSTOP.[facility] Medical Records Department [address] [place] [address] Anesthesia Postop Eval I 07/26/24833 MR#: [id number] Acct: [id number] Name: DEONTE BLANCO Rep #: [id number] : 1955 68 From: Julisa Wray CRNA PCP: Dr. Preet Farrar DO Status:REG SDC Y Race: C Location: [place] [address] Anesthesia: Postop Eval I Current Vital Signs Temperature: 97.6 F Pulse Rate: 68 Blood Pressure: 123/64 Respiratory Rate: 18 Pulse Ox: 94 Oxygen Delivery Method: Room Air Assessment Airway patent: Yes Spontaneous unlabored respirations: Yes Mental status: Awake and Calm nausea: No Vomiting: No Anesthesia Complication: No Fluid Hydration Crystalloid volume administer (ml): 10 Total IV fluid infused: 10 Progress Note Anesthesia document: Postop Eval 1 completed: Yes 07/26/24836 Date Julisa Wray CRNA Cosigner Signature: Date CC: Signed [facility] MR/[id number] 07-26-2024 MR/POSTOPAN2 [facility] Medical Records Department [address] [place] [address] Anesthesia Postop Eval II 07/26/24913 MR#: [id number] Acct: [id number] Name: DEONTE BLANCO Rep #: [id number] : 1955 68 From: Mati Evrin MD PCP: Dr. Preet Farrar, DO Status:REG SDC Y Race: C Location: [facility]- Anesthesia Postop Eval I Sum Postop Eval Completion status Anesthesia document: Postop Eval 1 completed: Yes Anesthesia Postop Eval I Summary Anesthesia Postop Eval I Summary: Anesthesia Postop Eval I: Assessment Summary Airway patent Yes 07/26/24 08:36 CORRECTION OFFICER SUPERVISOR.SKOBY Spontaneous unlabored Yes 07/26/24 08:36 CORRECTION OFFICER SUPERVISOR.SKOBY respirations Mental status Awake,Calm 07/26/24 08:36 CORRECTION OFFICER SUPERVISOR.SKOBY nausea No 07/26/24 08:36 CORRECTION OFFICER SUPERVISOR.SKOBY Vomiting No 07/26/24 08:36 CORRECTION OFFICER SUPERVISOR.SKOBY Anesthesia Postop Eval I: Fluid Summary Crystalloid volume administer 10 07/26/24 08:36 CORRECTION OFFICER SUPERVISOR.SKOBY (ml) Colloids volume administered ( ml) Blood Product volume administered (ml) Total IV fluid infused 10 07/26/24 08:36 CORRECTION OFFICER SUPERVISOR.SKOBY Anesthesia Postop Eval I: Summary Notes Anesthesia Complication No 07/26/24 08:36 CORRECTION OFFICER SUPERVISOR.SKOBY Anesthesia Complication Comment: Post-operative progress note Anesthesia: Postop Eval II Evaluation Mental status: Awake and Calm Pain Level: 1 nausea: No Vomiting: No Complications Anesthesia Complication: No 07/26/24914 Date Mati Ervin MD Cosigner Signature: Date CC: Signed Normal [facility] Operative Reporton 4 Operative Report [facility] Medical Records Department [address] [place] [address] Operative Report 07/26/2429 MR#: [id number] Acct: [id number] Name: DEONTE BLANCO Rep #: [id number] : 1955 68 From: Anushka Isaac MD PCP: Dr. Preet Farrar DO Status:[facility] Location: [place] [address] Operative Report (Standard) Operative Information Surgery/Procedure Performed: d and c hysteroscopy polypectomy Surgeon: Anushka Isaac Date of Procedure: 07/26/24 Procedure Start Time: 07:58 Procedure Stop Time: 08:27 Pre-Operative Diagnosis: thickened endometrium Post-Operative Diagnosis: endometrial mass Select all DRAINS/GRAFTS/IMPLANTS that apply: None Type of Anesthesia: IV Sedation Estimated Blood Loss: 50 Specimen collected: Yes Description of specimen(s) removed: curretage endometrial polyp/mass Description of surgery: Patient was prepped and draped in a normal sterile fashion under MAC anesthesia. A weighted speculum was placed in the vagina and the anterior lip of the cervix was grasped with a single-tooth tenaculum. A paracervical block was placed with 1% lidocaine. Cervix was progressively dilated to allow passage of a 5 mm hysteroscope. The lining was fully visualized and noted to have large polypoid mass filling the endometrium . Uterine sounded to 8 cm with good vaginal access and uterine descent. Curettage was performed and polypectomy with multiple tries, using the polyp forceps and hysteroscopic forceps, the entire mass was removed , sent to pathology. small area of bleeding noted at the base and due to the patient being on plavix, minimal vaginal bleeding noted but floseal placed inside the uterus to reduce the risk of postop bleeding. All instruments were removed from the vagina and excellent hemostasis was noted. Patient was awoken and taken to recovery in stable condition. Surgical Findings: endometrial polypoid mass Security Guard Supervisor leather belt shaper: No Complications Complications: No Multi Select Codes Urinary/Genital Urinary/Genital CPT Codes: 05452 Hysteroscopy,EMC, Polypectomy 07/26/24 0840 Cosigner Signature (if applicable): CC: Dr. Preet Farrar DO; Dr. Anushka Isaac MD Signed Normal [facility] Surgery Specimen Level Adonis 07-26-2024 Surgery Specimen Level IV Patient Age/Sex Location Account Attending Physician DEONTE BLANCO 68/F [facility] [id number] Dr. Anushka Isaac MD Specimen: [id number] Received: 07/26/24 Status: ROSALINA Leonard Num: [id number] Spec Type: ENDOM BX/C Subm Dr: Dr. Anushka Isaac MD HEADER OPERATION: D C, hysteroscopy, polypectomy PRE-OP DIAGNOSIS: Thickened endometrium, pelvic pain, HPV test positive, endometrial mass TISSUE SUBMITTED: Endometrial curettings and polypectomy MICROSCOPIC DIAGNOSIS Endometrial curettings and polyp, polypectomy: Fragments of benign endometrial polyp with simple cystic hyperplasia without atypia. See comment. 07/27/2024 COMMENT The specimen predominantly consists of endometrial polyps. Clinical correlation and appropriate follow up are necessary. MICROSCOPIC DESCRIPTION Slides are reviewed. GROSS DESCRIPTION Received in fixative is one container labeled with the patient's name and designated Endometrial curettings and polyp. The specimen consists of multiple irregular fragments of spicer indurated tissue mixed with polypoid tissue that in aggregate measure 5.0 x 5.0 x 0.5 cm. The largest polypoid piece measures 3.5 x 1.5 x 1.0cm. The largest polypoid mass is bisected. The entire specimen is submitted in three cassettes. 07/26/2024 TC:5 CPT:02284 Patient Age/Sex Location Account Attending Physician DEONTE BLANCO 68/F [facility] [id number] Dr. Anushka Isaac MD Signed (signature on file) Dr. Jorge Gerber MD 07/27/24 1238 Normal [facility] Comment on above: Performed By: #### P SUIV ####[facility] [address] [place], [place], [address] 12 Lead EKGon 07-21-2024 12 Lead EKG [facility] Cardiovascular Services [address] [place] [address] 12 Lead EKG 07/21/24 1100 MR#: [id number] Acct: [id number] Name: DEONTE BLANCO Rep #: [id number] : 1955 68 From: Jamel Gray MD Attending Dr: Dr. Anushka Isaac MD Status: PRE SDC Ordering Dr: Anushka Isaac MD Date: 07/21/24 Location: [facility] Sex: F C Admitted: Test Reason : PRE OP Blood Pressure : / mmHG Vent. Rate : 063 BPM Atrial Rate : 063 BPM P-R Int : 250 ms QRS Dur : 080 ms QT Int : 394 ms P-R-T Axes : 000 035 019 degrees QTc Int : 403 ms Sinus rhythm with 1st degree A-V block Otherwise normal ECG Confirmed by ISAAC TURNER, JAMEL ([id number]), order editor ANNMARIE GANT ([id number]) on 07/21/2024 2:11:14 PM Referred By: Anushka Isaac Confirmed By:JAMEL GRAY MD 07/21/24 1411 Date Jamel Gray MD CC: Dr. Preet Farrar, DO; Dr. Anushka Isaac MD Signed Normal [facility] Comprehensive Metabolic Prof ilon 07-21-2024 Albumin [Mass/Vol] 3.5 g/dL Normal 3.2-5.[address] [facility] Comment on above: Performed By: #### L 501.9985, L500.4050, L501.9520, BTSPAT ####[facility] [address] [place], [address] Albumin/Globulin [Mass ratio] 1.0 {ratio} Normal 0.9-2.4 [facility] Comment on above: Performed By: #### L 501.9985, L500.4050, L501.9520, BTSPAT ####[facility] [address] [place], [address] ALK P 88 U/L Normal 45-117 [facility] Comment on above: Performed By: #### L 501.9985, L500.4050, L501.9520, BTSPAT ####[facility] [address] [place], [address] ALT [Catalytic activity/Vol] 18 U/L Normal 13-56 [facility] Comment on above: Performed By: #### L 501.9985, L500.4050, L501.9520, BTSPAT ####[facility] [address] [place], [address] AST [Catalytic activity/Vol] 13 U/L Low 15-37 [facility] Comment on above: Performed By: #### L 501.9985, L500.4050, L501.9520, BTSPAT ####[facility] [address] [place], [address] Bilirubin [Mass/Vol] 0.60 mg/dL Normal 0.20-1.00 [facility] Comment on above: Result Comment: For patients on eltrombopag therapy, use of Dimension Gerlaw TBIL is not recommended. Performed By: #### L 501.9985, L500.4050, L501.9520, BTSPAT ####[facility] [address] [place], [address] BUN/CRE 26.9 RATIO High 10-20 [facility] Comment on above: Performed By: #### L 501.9985, L500.4050, L501.9520, BTSPAT ####[facility] [address] [place], [address] CA,Total 9.5 mg/dL Normal 8.5-10.1 [facility] Comment on above: Performed By: #### L 501.9985, L500.4050, L501.9520, BTSPAT ####[facility] [address] [place], [address] Chloride [Moles/Vol] 106 mmol/L Normal 98-107 [facility] Comment on above: Performed By: #### L 501.9985, L500.4050, L501.9520, BTSPAT ####[facility] [address] [place], [address] CO2 [Moles/Vol] 25.0 mmol/L Normal 21.0-32.0 [facility] Comment on above: Performed By: #### L 501.9985, L500.4050, L501.9520, BTSPAT ####[facility] [address] [place], [address] Creatinine [Mass/Vol] 0.71 mg/dL Normal 0.55-1.02 [facility] Comment on above: Result Comment: The validity of the calculated GFR GFRAA in patients over 70 years has not been determined. Clinical correlation is essential. Performed By: #### L 501.9985, L500.4050, L501.9520, BTSPAT ####[facility] [address] [place], [address] EST GFR - AA 106 mL/min Normal >60 [facility] Comment on above: Result Comment: Afri can Maltese GFR Calc Performed By: #### L 501.9985, L500.4050, L501.9520, BTSPAT ####[facility] [address] [place], [address] GAP 5 Normal 5-15 [facility] Comment on above: Performed By: #### L 501.9985, L500.4050, L501.9520, BTSPAT ####[facility] [address] [place], [address] GFR/1.73 sq M.predicted among non-blacks MDRD (S/P/Bld) [Vol rate/Area] 87 mL/min/{1.73_m2} Normal >60 [facility] Comment on above: Result Comment: Non- GFR Calc Performed By: #### L 501.9985, L500.4050, L501.9520, BTSPAT ####[facility] [address] [place], [address] Globulin (S) [Mass/Vol] 3.6 g/dL Normal 2.2-4.2 [facility] Comment on above: Performed By: #### L 501.9985, L500.4050, L501.9520, BTSPAT ####[facility] [address] [place], [address] Glucose [Mass/Vol] 191 mg/dL High 74-[address] [facility] Comment on above: Result Comment: Fast ing Glucose result greater than or equal to 126 mg/dL suggests DIABETES MELLITUS per A.D.A. criteria. Performed By: #### L 501.9985, L500.4050, L501.9520, BTSPAT ####[facility] [address] [place], [address] Potassium [Moles/Vol] 4.0 mmol/L Normal 3.5-5.1 [facility] Comment on above: Performed By: #### L 501.9985, L500.4050, L501.9520, BTSPAT ####[facility] [address] [place], [address] Sodium [Moles/Vol] 136 mmol/L Normal 136-[address] [facility] Comment on above: Performed By: #### L 501.9985, L500.4050, L501.9520, BTSPAT ####[facility] [address] [place], [address] T PROT 7.1 g/dL Normal 6.4-8.2 [facility] Comment on above: Performed By: #### L 501.9985, L500.4050, L501.9520, BTSPAT ####[facility] [address] [place], [address] Urea nitrogen [Mass/Vol] 19 mg/dL High 7-18 [facility] Comment on above: Performed By: #### L 501.9985, L500.4050, L501.9520, BTSPAT ####[facility] [address] [place], [address] Hemoglobin A1con 07-21-2024 HbA1c (Bld) [Mass fraction] 7.2 % High 3.8-5.6 [facility] Comment on above: Result Comment: Norm al < 5.7 % Prediabetic 5.7 - 6.4 % Diabetic >or= 6.5 % Please note range changes. Performed By: #### L 501.9985, L500.4050, L501.9520, BTSPAT ####[facility] [address] [place], [address] Thyroid Stim Hormone (TSH)on 07-21-2024 TSH 0.143 uIU/mL Low 0.358-3.74 0 [facility] Comment on above: Performed By: #### L 501.9985, L500.4050, L501.9520, BTSPAT ####[facility] [address] [place], [address] Type AND Screen - GLORIA Nixon 07-21-2024 ABO and Rh group Nom (Bld) Blood group A Rh(D) positive Normal [facility] Comment on above: Order Comment: Reaso n for Laboratory Test [id number] D C Performed By: #### L 501.9985, L500.4050, L501.9520, BTSPAT ####[facility] [address] [place], [address] CNPNon [facility] DEON[facility]AN[facility] ([id number]) 1955 F Date Time Provider Department 07/20/24 [facility] During your visit today, we recorded [...] tablet by mouth once daily. - Insulin Peyton, Disposable, (BD ULTRA-FINE MARIA T PEN NEEDLE) [...] Encounter Status:Closed by LISA APARICIO on 07/21/24 Normal [facility] CNPNon 07-19-2024 CNPN Telephone (FAMPWS) DEONTE BLANCO ([id number]) 1955 F Date Time Provider Department 07/19/24 PREET FARRAR FAMPWS During your visit today, we recorded the following information about you: Annmarie Canada RN 07/19/2024 11:34 AM Signed Lali with [facility] called in and reports she had faxed over the surgical clearance form on 07/15/24. I let them know it wasn't charted that they had received it, so she is going to send it again. Pt is going to have a DNC on 07/26/24, please fill out and fax back. Faxed recent thyroid labs and labs from April to [phone]. Let them know the other recent labs were external, and they would have to get them from [facility]. Sahara Mejia LPN 07/19/2024 4:31 PM Signed Form on Dr. Farrar's desk Chelo Prasad RN 07/25/2024 10:49 AM Signed Lali at [facility] called again regarding this pt. Pt is to have procedure tomorrow and they are asking if Dr. Farrar's office received surgical clearance forms last week-they are in need of them being completed. Asking if someone can call them today with an update on the forms. Call Lali at [phone]. OLVIN Mujica Susan LPN 07/25/2024 10:55 AM [...] tablet by mouth once daily. - Insulin Peyton, Disposable, (BD ULTRA-FINE MARIA T PEN NEEDLE) [...] Diabetes mellit (more content not included)... Normal [facility] Senior Biostatistician Office Visit Reporton 07-19-2024 Senior Biostatistician Office Visit Report [facility]'[address], [address] [place] [address] OFFICE VISIT Date of Service: 07/19/24 MR#: [id number] Acct: [id number] Name: DEONTE BLANCO Rep #: [id number] : 1955 Provider: Dr. Anushka nolan MD Age/Sex: 68/F Location: [facility] Status: Signed Intake Vital Signs 07/07/24 13:26 07/19/24 07:53 Height 5 ft 5 ft Weight: 178 lb 177 lb BMI 34.7 34.5 BP 171/77 H 155/64 H Blood Pressure Location Lt brachial Position Sitting Pulse 70 Pulse Source Monitor Intake Visit Reasons: D C possible hysteroscopy Chief Complaint: surgical consult atypica cells on EMB- non cancerous Window Tinter Required: No Is patient in pain?: No Feel stressed/tense/nervous/anxi ous/difficulty sleeping: to some extent (some anxiety related to upcoming procedure) Allergies metformin Allergy (Severe, Verified 07/19/24 10:43) Hives prednisone Allergy (Intermediate, Verified 07/19/24 10:43) Itching aspirin Allergy (Verified 07/19/24 10:43) mouth swelling gluten Allergy (Verified 07/19/24 10:43) Abd cramps/diarrhea ibuprofen Allergy (Verified 07/19/24 10:43) mouth swelling Sulfa (Sulfonamide Antibiotics) Allergy (Verified 07/19/24 10:43) pt can't remember Medications ???Medication ???Instructions ???Recorded ???Confirmed ???Type ergocalciferol (vitamin D2) 1,250 50,000 unit PO MOFR SUPPLEMENT 12/18/20 07/19/24 History mcg (50,000 unit) capsule thyroid (pork) 120 mg tablet 120 tablet PO DAILY THYROID 12/18/20 07/19/24 History atorvastatin 80 mg tablet 80 mg PO QHS cholesterol #30 tabs 11/04/22 07/19/24 Rx clopidogrel 75 mg tablet 75 mg PO DAILY BLOOD THINNER #30 11/04/22 07/19/24 Rx tabs carvedilol 6.25 mg tablet 6.25 mg PO BID 03/05/24 07/19/24 History spironolactone 25 mg tablet 25 mg PO DAILY 03/05/24 07/19/24 History glimepiride 2 mg tablet 2 mg PO BID #60 tabs 03/09/24 07/19/24 Rx clonidine HCl 0.1 mg tablet 0.1 mg PO Q8H PRN PRN blood 05/22/24 07/19/24 History pressure ondansetron 4 mg disintegrating 4 mg PO Q8H PRN PRN Nausea #10 tabs 05/22/24 07/19/24 Rx tablet pantoprazole 40 mg tablet,delayed 40 mg PO DAILY #30 tabs 05/22/24 07/19/24 Rx release vitamin C 30 mg-zinc citrate 1.1 1 tab PO DAILY 05/22/24 07/19/24 History mg-elderberry 25 mg chewable tablet (Sambucus Elderberry) sitagliptin phosphate 100 mg 100 mg PO QDAY 07/07/24 07/19/24 History tablet (Januvia) insulin glargine 100 unit/mL (3 16 unit subcut DAILY 07/19/24 07/19/24 History mL) subcutaneous pen (Lantus Solostar U-100 Insulin) Is last menstrual period known: No Post menopausal: Yes Patient : No : No PFSH Medical History Marijuana smoker Anxiety Depression Diabetes Former smoker Stroke/cerebrovascular accident Former tobacco use Head injury Near syncope Elevated troponin Abnormal EKG Hyponatremia Prolonged QT interval Polyneuropathy Occlusion of left internal carotid artery Ischemic stroke 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 Irritable bowel syndrome Celiac disease Ulcerative colitis Muscle spasm Hypothyroidism Hypertension Vitamin D deficiency Diabetes mellitus Lumbar spinal stenosis Lumbar disc herniation with radiculopathy Ambulatory dysfunction Intractable back pain Surgical History Hx of umbilical hernia repair S/P tubal ligation S/P cholecystectomy S/P tonsillectomy and adenoidectomy History of lumbar fusion History of lumbar discectomy Family History Mother Heart disease Father Heart disease Hypertension CAD (coronary artery disease) Myocardial infarction Thyroid disorder Diabetes Social History (Updated 07/07/24 @ 14:42 by Jemima Gonzalez) adopted: No household members: none number of children: 3 sexually active: Yes Smoking Status: Former smoker alcohol intake: never substance use type: marijuana and other details: Medical cannabis, usually daily. seatbelt use: always do you feel safe at home: Yes HPI D C possible hysteroscopy Details: DEONTE BLANCO is a 68 year old who presents for preop visit planning d and c hysterosocpy Female Reproductive History Menopausal Symptoms: No night sweats History 3 Elective abortions Hx Para 3 Spontaneous abortions Hx # Term Pregnancies Ectopic pregnancies Hx # Pregnancies Multiple births # of living children 3 Past Pregnancies Del. Date Name GA/Weeks Outcome Route Bth Weight Gen Labor Lgth Anesthesia Del Locatn Provider FOB Unknown 1985 Alicia Unknown 1989 Zoey Unknown 1996 Jeffrey TRICIA Cons (more content not included)... [facility] 07-15-2024 [facility] Telephone (FAMPWS) DEONTE BLANCO ([id number]) 1955 F Date Time Provider Department 07/15/24 PREET FARRAR [facility] During your visit today, we recorded the following information about you: Sahara Mejia LPN 07/15/2024 10:57 AM Signed Blood Sugar results brought in by patient.Placed on Dr. Farrar desfranca. Lisa Aparicio RN 07/21/2024 8:23 AM Signed Patient calls back [...] Patient is having DNC done on 07/26/2024. [facility] had faxed over surgical clearance form [...] tablet by mouth once daily. - Insulin Peyton, Disposable, (BD ULTRA-FINE MARIA T PEN NEEDLE) [...] [E55.9] 09/10 (more content not included)... Normal [facility] T3Free SerPl-mCncon 07-15-20 24 Free T3 [Mass/Vol] 5.0 pg/mL High 2.3-4.1 [facility] Comment on above: Order Comment: Speci men Type: BLOOD SPECIMENOrdering Facility: [facility] Address: [address] [place] [address] Performed By: #### 3 051-0, 7, 3 ####[facility] LABCLIA [id number] [place] [address] [place] T4 Free SerPl-mCncon 024 Free T4 [Mass/Vol] 0.9 ng/dL Normal 0.9-1.7 [facility] Comment on above: Order Comment: Speci men Type: BLOOD SPECIMENOrdering Facility: [facility] Address: [address] [place] [address] Performed By: #### 3 051-0, 7, 3 ####[facility] LABCLIA [id number] [place] [address] [place] TSH SerPl-aCncon 07-15-2024 TSH Qn 0.218 m[IU]/L Low 0.270-4.20 0 [facility] Comment on above: Order Comment: Speci men Type: BLOOD SPECIMENOrdering Facility: [facility] Address: [address] [place] [address] Performed By: #### 3 051-0, 3023-7, 6-3 ####[facility] LABCLIA [id number] [place] [address] [place] CNOVon 06-14-2024 CNOV Office Visit (FAMPWS ) DEONTE BLANCO ([id number]) 1955 F Date Time Provider Department 06/14/24 2:20 PM [facility] During your visit today, we recorded [...] thickened endometrial lining. Has been seen by LEARNING COORDINATOR and had EMB and will be having a consult with Dr. Froylan Farnsworth LEARNING COORDINATOR on 07/07 to potentially schedule MEREDITH. She [...] 1 tablet by mouth once daily. Insulin Peyton, Disposable, (PEN NEEDLE) 29 ga (more content not included)... Normal [facility] Comprehensive metabolic 2000 panelon 03-22-2024 Albumin [Mass/Vol] 4.3 g/dL 3.9 - 4.9 g/dL [facility] ALP [Catalytic activity/Vol] 99 U/L 34 - 123 U/L [facility] ALT [Catalytic activity/Vol] 16 U/L 7 - 38 U/L [facility] Anion gap [Moles/Vol] 16 mmol/L High 8 - 15 mmol/L [facility] AST [Catalytic activity/Vol] 27 U/L 13 - 35 U/L [facility] Bilirubin [Mass/Vol] 0.4 mg/dL 0.2 - 1 .3 mg/dL [facility] Calcium [Mass/Vol] 10.4 mg/dL High 8.5 - 10. 2 mg/dL [facility] Chloride [Moles/Vol] 98 mmol/L 98 - 10 7 mmol/L [facility] CO2 [Moles/Vol] 21 mmol/L Low 22 - 30 mmol/L [facility] Creatinine [Mass/Vol] 0.67 mg/dL 0.58 - 0.96 mg/dL [facility] GFR/1.73 sq M.predicted among non-blacks MDRD (S/P/Bld) [Vol rate/Area] 95 mL/min/{1.73_m2} - PINF [facility] Comment on above: Estimated Glomerular Filtration [...] 192 mg/dL High 74 - 99 mg/dL [facility] Comment on above: The [place] Di[employer] Association (ADA) provides guidance for [...] Standards of Medical Care in Diabetes 2016, [place] [employer]. Diabetes Care. 2016.39(Suppl 1). Interpretation and review of laboratory results Abnormal [facility] Potassium [Moles/Vol] 4.9 mmol/L 3.7 - 5.1 mmol/L [facility] Protein [Mass/Vol] 7.4 g/dL 6.3 - 8.0 g/dL [facility] Sodium [Moles/Vol] 135 mmol/L Low 136 - 144 mmol/L [facility] Urea nitrogen [Mass/Vol] 17 mg/dL 7 - 21 mg/dL [facility] Free T4 [Mass/Vol]on Interpretation and review of laboratory results Abnormal [facility] No Panel Informationon 03-22 [facility] T4 FREE/FREE THYROXINEon Free T4 [Mass/Vol] 0.7 ng/dL Low 0.9 - 1.7 ng/dL [facility] THYROID STIMULATING HORMONEo n 03-22-2024 TSH Qn 1.890 m[IU]/L [facility] TSH Qnon 03-22-2024 Interpretation and review of laboratory results Normal [facility] CBC W Auto Differential pane l (Bld)on 03-21-2024 Basophils (Bld) [#/Vol] 0.04 10*3/uL [facility] Basophils/100 WBC (Bld) 0.5 % [facility] Differential cell count method Nom (Bld) Auto [facility] Eosinophils (Bld) [#/Vol] 0.18 10*3/uL [facility] Eosinophils/100 WBC (Bld) 2.0 % [facility] Erythrocyte distribution width (RBC) [Ratio] 13.8 % 11.5 - 15.0 % [facility] Hematocrit (Bld) [Volume fraction] 40.9 % 36.0 - 46.0 % [facility] Hemoglobin (Bld) [Mass/Vol] 13.3 g/dL 11.5 - 15.5 g/dL [facility] Immature granulocytes (Bld) [#/Vol] 0.05 10*3/uL [facility] Immature granulocytes/100 WBC (Bld) 0.6 % [facility] Lymphocytes (Bld) [#/Vol] 2.12 10*3/uL [facility] Lymphocytes/100 WBC (Bld) 24.0 % [facility] MCH (RBC) [Entitic mass] 30.9 pg 26.0 - 34.0 pg [facility] MCHC (RBC) [Mass/Vol] 32.5 g/dL 30.5 - 36.0 g/dL [facility] MCV (RBC) [Entitic vol] 94.9 fL 80.0 - 100.0 fL [facility] Monocytes (Bld) [#/Vol] 0.60 10*3/uL [facility] Monocytes/100 WBC (Bld) 6.8 % [facility] Neutrophils (Bld) [#/Vol] 5.85 10*3/uL [facility] Neutrophils/100 WBC (Bld) 66.1 % [facility] Nucleated RBC (Bld) [#/Vol] [facility] Nucleated RBC/100 WBC (Bld) [Ratio] 0.0 % /100 WBC [facility] Platelet mean volume (Bld) [Entitic vol] 9.6 fL 9.0 - 12.7 fL [facility] Platelets (Bld) [#/Vol] 387 10*3/uL [facility] RBC (Bld) [#/Vol] 4.31 10*6/uL 3.90 - 5.20 m/uL [facility] WBC (Bld) [#/Vol] 8.84 10*3/uL [facility] HEMOGLOBIN A1C (POC)on 01-05 HbA1c (Bld) [Mass fraction] 6.5 % Abnormal 4.3 - 5.6 % [facility] GLUCOSE, BLOOD (POC)on 01-01 Glucose [Mass/Vol] 140 mg/dL Abnormal 74 - 99 mg/dL [facility] UA DIP, URINE (POC)on 2023 BILIRUBIN UA (POCT) Negative Negative [facility] CLARITY UA (POCT) Clear [facility] COLOR UA (POCT) Yellow [facility] GLUCOSE UA (POCT) >=1000 Abnormal Negative mg/dL [facility] Hemoglobin Ql (U) Small Abnormal Negative [facility] KETONE UA (POCT) Negative Negative mg/dL [facility] LEUKOCYTES UA (POCT) Negative Negative [facility] NITRITE UA (POCT) Negative Negative [facility] PH UA (POCT) 5.0 4.5 - 8.0 [facility] Protein Ql (U) Negative Negative mg/dL [facility] SPECIFIC GRAVITY UA (POCT) 1.010 1.005 - 1.030 [facility] UROBILINOGEN UA (POCT) 0.2 E.U./dL Lisbeth l E.U./dL [facility] No Panel InformationOrdered By: Sean Bradley on 12-14-2023 Estimated GFR (MDRD) Amer 97 mL/min >60 [facility] Comment on above: GFR Calc Estimated GFR (MDRD) Non-Af Amer 80 mL/min >60 [facility] Comment on above: Non- GFR Calc Serum or plasma creatinine m easurement (mass/volume)Ordered By: Sean Bradley on 12-14-2023 Creatinine [Mass/Vol] 0.76 mg/dL 0.55-1.02 [facility] Comment on above: The validity of the calculated GFR & GFRAA in patients over 70 years has not been determined. Clinical correlation is essential. Serum or plasma urea nitroge n measurement (mass/volume)Ordered By: Sean Bradley on 12-14-2023 Urea nitrogen [Mass/Vol] 22 mg/dL 7-18 [facility] TROPHSon 11-25-2023 Troponin I High Sensitivity 4.86 ng/L Normal 0.00-34.00 [facility] ([place]) Comment on above: Performed By: #### T [facility] ####[address] [address] .Auto Diffon 11-24-2023 Basophil, Absolute 0.1 10 3/mcL Normal 0.0-0.3 [facility] ([place]) Comment on above: Performed By: #### P BNP, BMP, CBC, GFR, ANEU, TROPHS, W, ADIFF #### [address] [address] Basophils/100 WBC (Bld) 0.6 % Normal 0.0-2.5 [facility] ([place]) Comment on above: Performed By: #### P BNP, BMP, CBC, GFR, ANEU, ELIZABETH, W, ADIFF #### [address] [address] Eosinophil, Absolute 0.2 10 3/mcL Normal 0.0-0.7 [facility] ([place]) Comment on above: Performed By: #### P BNP, BMP, CBC, GFR, ANEU, ELIZABETH, GANGA, ADIFF #### [address] [address] Eosinophils/100 WBC (Bld) 2.0 % Normal 0.0-6.0 [facility] ([place]) Comment on above: Performed By: #### P BNP, BMP, CBC, GFR, ANEU, ELIZABETH, GANGA, ADIFF #### [address] [address] Lymphocyte, Absolute 2.6 10 3/mcL Normal 0.9-4.3 [facility] ([place]) Comment on above: Performed By: #### P BNP, BMP, CBC, GFR, ANEU, TROPHPascual, GANGA, ADIFF #### [address] [address] Lymphocytes/100 WBC (Bld) 22.2 % Normal 20.0-40.0 [facility] ([place]) Comment on above: Performed By: #### P BNP, BMP, CBC, GFR, ELIZABETH VARGAS, GANGA, ADIFF #### [address] [address] Monocyte, Absolute 0.9 10 3/mcL Normal 0.1-1.4 [facility] ([place]) Comment on above: Performed By: #### P BNP, BMP, CBC, GFR, ELIZABETH VARGAS MDW, ADIFF #### [address] [address] Monocytes/100 WBC (Bld) 7.6 % Normal 2.0-13.0 [facility] ([place]) Comment on above: Performed By: #### P BNP, BMP, CBC, GFR, ELIZABETH VARGAS MDW, ADIFF #### [address] [address] Neutrophils/100 WBC (Bld) 67.6 % Normal 50.0-75.0 [facility] ([place]) Comment on above: Performed By: #### P BNP, BMP, CBC, GFR, ELIZABETH VARGAS MDW, ADIFF #### [address] [address] .GFRon 11-24-2023 GFR >60 Normal [facility] ([place]) Comment on above: Result Comment: GFR Population [...] CBC, GFR, SAM, GANGA JOHNSON, ADIFF #### [address] [address] GFR Non- >60 Normal [facility] ([place]) Comment on above: Result Comment: GFR Population [...] CBC, GFR, ELIZABETH VARGAS MDW, ADIFF #### [address] [address] .MDWon 11-24-2023 Monocyte Distribution Width 17.57 Normal 0.00-20.00 [facility] ([place]) Comment on above: Result Comment: For ED adult patients suspected of sepsis, MDW<=20.0 does not rule out sepsis or risk of sepsis Performed By: #### P BNP, BMP, CBC, GFR, ELIZABETH VARGAS MDW, ADIFF #### [address] [address] .NEUABSon 11-24-2023 Neutrophil, Absolute 8.0 10 3/mcL Normal 2.3-8.1 [facility] ([place]) Comment on above: Performed By: #### P BNP, BMP, CBC, GFR, ELIZABETH VARGAS MDW, ADIFF #### [address] [address] BMPon 11-24-2023 BUN/Creatinine Ratio 23.4 ratio High 10.0-22.0 [facility] ([place]) Comment on above: Performed By: #### P BNP, BMP, CBC, GFR, ELIZABETH VARGAS MDW, ADIFF #### [address] [address] Calcium [Mass/Vol] 9.9 mg/dL Normal 8.7-10.4 [facility] ([place]) Comment on above: Performed By: #### P BNP, BMP, CBC, GFR, ELIZABETH VARGAS MDW, ADIFF #### [address] [address] Chloride [Moles/Vol] 106 mmol/L Normal 98-110 [facility] ([place]) Comment on above: Performed By: #### P BNP, BMP, CBC, GFR, SAM, GANGA JOHNSON, ADIFF #### [address] [address] CO2 [Moles/Vol] 25 mmol/L Normal 22-32 [facility] ([place]) Comment on above: Performed By: #### P BNP, BMP, CBC, GFR, ELIZABETH VARGAS MDW, ADIFF #### [address] [address] Creatinine [Mass/Vol] 0.64 mg/dL Normal 0.50-1.20 [facility] ([place]) Comment on above: Performed By: #### P BNP, BMP, CBC, GFR, ELIZABETH VARGAS MDW, ADIFF #### [address] [address] Electrolyte Balance 5.0 mEq/L Normal 4.0-15.0 [facility] ([place]) Comment on above: Performed By: #### P BNP, BMP, CBC, GFR, ELIZABETH VARGAS MDW, ADIFF #### [address] [address] Glucose [Mass/Vol] 158 mg/dL High 82-115 [facility] ([place]) Comment on above: Performed By: #### P BNP, BMP, CBC, GFR, ELIZABETH VARGAS MDW, ADIFF #### [address] [address] Potassium [Moles/Vol] 3.9 mmol/L Normal 3.5-5.0 [facility] ([place]) Comment on above: Result Comment: Spec imen slightly hemolyzed. Performed By: #### P BNP, BMP, CBC, GFR, SAM, GANGA JOHNSON, ADIFF #### [place] [phone] Sodium [Moles/Vol] 136 mmol/L Normal 136-145 [facility] ([place]) Comment on above: Performed By: #### P BNP, BMP, CBC, GFR, ELIZABETH VARGAS MDW, ADIFF #### [place] [phone] Urea nitrogen [Mass/Vol] 15.0 mg/dL Normal 8.0-22.0 [facility] ([place]) Comment on above: Performed By: #### P BNP, BMP, CBC, GFR, ELIZABETH VARGAS MDW, ADIFF #### [place] [phone] CBCon 11-24-2023 Erythrocyte distribution width (RBC) [Ratio] 14.3 % Normal 11.5-15.5 [facility] ([place]) Comment on above: Performed By: #### P BNP, BMP, CBC, GFR, ELIZABETH VARGAS MDW, ADIFF #### [place] [address] Hematocrit (Bld) [Volume fraction] 40.9 % Normal 34.0-46.0 [facility] ([place]) Comment on above: Performed By: #### P BNP, BMP, CBC, GFR, ELIZABETH VARGAS MDW, ADIFF #### [place] [phone] Hgb 13.7 G/dL Normal 12.0-16.0 [facility] ([place]) Comment on above: Performed By: #### P BNP, BMP, CBC, GFR, ELIZABETH VARGAS MDW, ADIFF #### [place] [phone] MCH (RBC) [Entitic mass] 29.9 pg Normal 27.0-33.0 [facility] ([place]) Comment on above: Performed By: #### P BNP, BMP, CBC, GFR, ELIZABETH VARGAS MDW, ADIFF #### [place] [phone] MCHC 33.5 G/dL Normal 32.0-36.0 [facility] ([place]) Comment on above: Performed By: #### P BNP, BMP, CBC, GFR, ANEU, TROPHS, W, ADIFF #### [place] [address] MCV (RBC) [Entitic vol] 89.5 fL Normal 80.0-99.0 [facility] ([place]) Comment on above: Performed By: #### P BNP, BMP, CBC, GFR, ANEU, TROPHS, MDW, ADIFF #### [place] [address] Platelet 365 10 3/mcL Normal 150-450 [facility] ([place]) Comment on above: Performed By: #### P BNP, BMP, CBC, GFR, ANEU, TROPHS, W, ADIFF #### [place] [address] Platelet mean volume (Bld) [Entitic vol] 7.7 fL Normal 6.6-10.5 [facility] ([place]) Comment on above: Performed By: #### P BNP, BMP, CBC, GFR, ANEU, TROPHS, W, ADIFF #### [place] [phone] RBC 4.58 10 6/mcL Normal 4.10-5.30 [facility] ([place]) Comment on above: Performed By: #### P BNP, BMP, CBC, GFR, ANEU, TROPHS, MDW, ADIFF #### [place] [phone] WBC 11.8 10 3/mcL High 4.5-10.8 [facility] ([place]) Comment on above: Performed By: #### P BNP, BMP, CBC, GFR, ANEU, TROPHS, W, ADIFF #### [place] [address] LABORATORYOrdered By: SYSTEM SYSTEM on 11-24-2023 Troponin [...] 158 mg/dL High 82 - 115 mg/dL AH ADM SS Hematocrit (Bld) [Volume fraction] 40.9 [...] mg/dL Normal 1.6 - 2 .4 mg/dL AH ADM SS MCH (RBC) [Entitic mass] 29.9 [...] (Bld) [#/Vol] 4.58 106/mcL Normal 4.10 - 5.30 10^6/mcL AH Workflow SS Sodium [Moles/Vol] 136 [...] 11-24-2023 Magnesium [Mass/Vol] 1.8 mg/dL Normal 1.6-2.4 [facility] ([place]) Comment on above: Performed By: #### M G #### [place] [address] PBNPon 11-24-2023 Natriuretic peptide B (Bld) [Mass/Vol] 39 pg/mL Normal 0-900 [facility] ([place]) Comment on above: Result Comment: NT-p roBNP results of less than 300 pg/mL effectively rules out acute congestive heart failure with 99% negative predictive value. Performed By: #### P BNP, BMP, CBC, GFR, SAM, GANGA JOHNSON, ADIFF #### [address] [address] TROPHSon 11-24-2023 Troponin I High Sensitivity 4.59 ng/L Normal 0.00-34.00 [facility] ([place]) Comment on above: Performed By: #### P BNP, BMP, CBC, GFR, ANEU, GANGA JOHNSON, ADIFF #### [address] [address] XR CHEST 1 VIEWon 11-24-2023 XR CHEST [...] 11/24/2023 7:08:29 PM Ordering Provider: RICKY Crews [facility] ([place]) CBC W Auto Differential pane l (Bld)on 11-13-2023 Basophils (Bld) [#/Vol] 0.06 10*3/uL <0.11 k/uL [facility] Basophils/100 WBC (Bld) 0.6 % [facility] Differential cell count method Nom (Bld) Auto [facility] Eosinophils (Bld) [#/Vol] 0.08 10*3/uL <0.46 k/uL [facility] Eosinophils/100 WBC (Bld) 0.8 % [facility] Erythrocyte distribution width (RBC) [Ratio] 13.0 % 11.5 - 15.0 % [facility] Hematocrit (Bld) [Volume fraction] 41.7 % 36.0 - 46.0 % [facility] Hemoglobin (Bld) [Mass/Vol] 14.0 g/dL 11.5 - 15.5 g/dL [facility] Immature granulocytes (Bld) [#/Vol] 0.03 10*3/uL <0.10 k/uL [facility] Immature granulocytes/100 WBC (Bld) 0.3 % [facility] Lymphocytes (Bld) [#/Vol] 1.73 10*3/uL 1.00 - 4.00 k/uL [facility] Lymphocytes/100 WBC (Bld) 17.5 % [facility] MCH (RBC) [Entitic mass] 30.9 pg 26.0 - 34.0 pg [facility] MCHC (RBC) [Mass/Vol] 33.6 g/dL 30.5 - 36.0 g/dL [facility] MCV (RBC) [Entitic vol] 92.1 fL 80.0 - 100.0 fL [facility] Monocytes (Bld) [#/Vol] 0.63 10*3/uL <0.87 k/uL [facility] Monocytes/100 WBC (Bld) 6.4 % [facility] Neutrophils (Bld) [#/Vol] 7.35 10*3/uL 1.45 - 7.50 k/uL [facility] Neutrophils/100 WBC (Bld) 74.4 % [facility] Nucleated RBC (Bld) [#/Vol] <0.01 k/uL [facility] Nucleated RBC/100 WBC (Bld) [Ratio] 0.0 /100 WBC [facility] Platelet mean volume (Bld) [Entitic vol] 9.9 fL 9.0 - 12.7 fL [facility] Platelets (Bld) [#/Vol] 368 10*3/uL 150 - 400 k/uL [facility] RBC (Bld) [#/Vol] 4.53 10*6/uL 3.90 - 5.20 m/uL [facility] WBC (Bld) [#/Vol] 9.88 10*3/uL 3.70 - 11.00 k/uL [facility] HbA1c (Bld)on 11-13-2023 Average glucose Estimated from glycated hemoglobin (Bld) [Mass/Vol] 140 mg/dL [facility] HbA1c (Bld) [Mass fraction] 6.5 % High 4.3 - 5.6 % [facility] Basophil percentageOrdered B y: Kenton Stapleton on 07-27-2023 Chloride [Moles/Vol] 104 mmol/L 98-107 [facility] Glucose [Mass/Vol] 120 mg/dL 74-[address] [facility] Comment on above: Fasting Glucose resu lt from 100 to 125 mg/dL suggests IMPAIRED HOMEOSTASIS per A.D.A. criteria. Potassium [Moles/Vol] 3.1 mmol/L 3.5-5.1 [facility] Sodium [Moles/Vol] 136 mmol/L 136-[address] [facility] Laboratory - Chemistry and C hemistry - challengeOrdered By: Kenton Stapleton on 07-27-2023 CO2 [Moles/Vol] 26.0 mmol/L 21.0-32.0 [facility] Urea nitrogen/Creatinine [Mass ratio] 20.1 mg/mg 10- [facility] No Panel InformationOrdered By: Kenton Stapleton on 07-27-2023 Estimated GFR (MDRD) Amer 117 mL/min >60 [facility] Comment on above: GFR Calc Estimated GFR (MDRD) Non-Af Amer 97 mL/min >60 [facility] Comment on above: Non- GFR Calc Serum or plasma calcium mulugeta urement (mass/volume)Ordered By: Kenton Stapleton on 07-27-2023 Calcium [Mass/Vol] 9.4 mg/dL 8.5-10.[address] [facility] Serum or plasma creatinine m easurement (mass/volume)Ordered By: Kenton Stapleton on 07-27-2023 Creatinine [Mass/Vol] 0.65 mg/dL 0.55-1.02 [facility] Comment on above: The validity of the calculated GFR & GFRAA in patients over 70 years has not been determined. Clinical correlation is essential. Serum or plasma urea nitroge n measurement (mass/volume)Ordered By: Kenton Stapleton on 07-27-2023 Urea nitrogen [Mass/Vol] 13 mg/dL 7-18 [facility] Thin prep Papanicolaou smear with manual screeningOrdered By: Kenton Stapleton on 07-27-2023 Thin prep Papanicolaou smear with manual screening 6 5-15 [facility] Absolute lymphocyte countOrd ered By: Abisai Fuentes on 07-03-2023 Lymphocytes Auto (Unsp spec) [#/Vol] 4.06 10*3/uL 0.83-4.51 [facility] Basophil percentageOrdered B y: Abisai Fuentes on 07-03-2023 Basophils/100 WBC (Bld) 0.3 % 0-1 [facility] Chloride [Moles/Vol] 104 mmol/L 98-107 [facility] Eosinophils/100 WBC (Bld) 2.8 % 0-5 [facility] Glucose [Mass/Vol] 94 mg/dL 74-[address] [facility] Neutrophils (Bld) [#/Vol] 5.5 10*3/uL 2.0-7.7 [facility] Neutrophils/100 WBC (Bld) 50.1 % 47-70 [facility] Potassium [Moles/Vol] 3.1 mmol/L 3.5-5.1 [facility] Sodium [Moles/Vol] 135 mmol/L 136-[address] [facility] WBC (Bld) [#/Vol] 10.9 10*3/uL 4.4-11.0 [facility] Blood erythrocytes count (nu mber/volume)Ordered By: Abisai Fuentes on 07-03-2023 RBC (Bld) [#/Vol] 3.60 10*6/uL 4.2-5.4 [facility] Blood hemoglobin measurement (mass/volume)Ordered By: Abisai Fuentes on 07-03-2023 Hemoglobin (Bld) [Mass/Vol] 10.9 g/dL 12.0-15.0 [facility] Blood lymphocytes/100 leukoc ytesOrdered By: Abisai Fuentes on 07-03-2023 Lymphocytes/100 WBC (Bld) 37.2 % 19-41 [facility] Blood monocytes/100 leukocyt esOrdered By: Abisai Fuentes on 07-03-2023 Monocytes/100 WBC (Bld) 9.0 % 0-10 [facility] Blood platelet mean volumeOr dered By: Abisai Fuentes on 07-03-2023 Platelet mean volume (Bld) [Entitic vol] 9.4 fL 6.2-12.0 [facility] Determination of erythrocyte mean corpuscular volume (MCV)Ordered By: Abisai Fuentes on 07-03-2023 MCV (RBC) [Entitic vol] 90.6 fL 81-99 [facility] Glucose Glucometer (BldC) [M ass/Vol]Ordered By: Abisai Fuentes on 07-03-2023 Glucose [Mass/Vol] 194 mg/dL 74-[address] [facility] Comment on above: MANAGEMENT OF PATIEN T CARE PER NURSING PROTOCOL Hematocrit Auto (Bld) [Volum e fraction]Ordered By: Abisai Fuentes on 07-03-2023 Hematocrit (Bld) [Volume fraction] 32.6 % 37-47 [facility] Laboratory - Chemistry and C hemistry - challengeOrdered By: Abisai Fuentes on 07-03-2023 CO2 [Moles/Vol] 27.0 mmol/L 21.0-32.0 [facility] Urea nitrogen/Creatinine [Mass ratio] 11.3 mg/mg 10-20 [facility] Laboratory - Hematology and Cell countsOrdered By: Abisai Fuentes on 07-03-2023 Erythrocyte distribution width (RBC) [Entitic vol] 40.6 fL 35.1-43.9 [facility] Erythrocyte distribution width (RBC) [Ratio] 12.3 % 11.6-14.6 [facility] Immature granulocytes/100 WBC (Bld) 0.600 % 0.0-0.9 [facility] Comment on above: IG% - Immature Granu locytes (promyelocytes, myelocytes and metamyelocytes) > 1% indicates that a LEFT SHIFT is Present. MCH (RBC) [Entitic mass] 30.3 pg 27.0-32.0 [facility] Nucleated RBC/100 WBC (Bld) [Ratio] 0 % 0-5 [facility] MCHC Auto (RBC) [Mass/Vol]Or dered By: Abisai Fuentes on 07-03-2023 MCHC (RBC) [Mass/Vol] 33.4 g/dL 32-36 [facility] Comment on above: Delta: 35.5 on 07/02 No Panel InformationOrdered By: Abisai Fuentes on 07-03-2023 Estimated Creatinine Clearance Calc 39.21 ml/min [facility] Estimated GFR (MDRD) Amer 147 mL/min >60 [facility] Comment on above: GFR Calc Estimated GFR (MDRD) Non-Af Amer 121 mL/min >60 [facility] Comment on above: Non- GFR Calc Platelets bldOrdered By: Steff Fuentes on 07-03-2023 Platelets (Bld) [#/Vol] 315 10*3/uL 150-450 [facility] Serum or plasma calcium mulugeta urement (mass/volume)Ordered By: Abisai Fuentes on 07-03-2023 Calcium [Mass/Vol] 7.4 mg/dL 8.5-10.[address] [facility] Serum or plasma creatinine m easurement (mass/volume)Ordered By: Abisai Fuentes on 07-03-2023 Creatinine [Mass/Vol] 0.53 mg/dL 0.55-1.02 [facility] Comment on above: The validity of the calculated GFR & GFRAA in patients over 70 years has not been determined. Clinical correlation is essential. Serum or plasma urea nitroge n measurement (mass/volume)Ordered By: Abisai Fuentes on 07-03-2023 Urea nitrogen [Mass/Vol] 6 mg/dL 7-18 [facility] Thin prep Papanicolaou smear with manual screeningOrdered By: Abisai Fuentes on 07-03-2023 Thin prep Papanicolaou smear with manual screening 4 5-15 [facility] Basophil percentageOrdered B y: Halley White on 07-02-2023 Bilirubin [Mass/Vol] 0.60 mg/dL 0.20-1.00 [facility] Comment on above: For patients on eltr ombopag therapy, use of Dimension Gerlaw TBIL is not recommended. Cholesterol [Mass/Vol] 74 mg/dL <200 [facility] Comment on above: <200 mg/dL Desirable 200-240 mg/dL Borderline >240 mg/dL High Risk Protein [Mass/Vol] 4.9 g/dL 6.4-8.[address] [facility] Triglyceride [Mass/Vol] 116 mg/dL <199 [facility] Comment on above: The drugs N-Acetylcy steine and Metamizole may falsely depress this assay.Serum Triglycerides Reference Interval Normal <150 mg/dL Borderline high 150 - 199 mg/dL High 200 - 499 mg/dL Very High > or = 500 mg/dL Laboratory - Chemistry and C hemistry - challengeOrdered By: [facility] 07-02-2023 ALP [Catalytic activity/Vol] 75 U/L 45-117 [facility] ALT [Catalytic activity/Vol] 18 U/L 13-56 [facility] Free T4 [Mass/Vol] 0.68 ng/dL 0.76-1.[address] [facility] Globulin (S) [Mass/Vol] 2.4 g/dL 2.2-4.2 [facility] No Panel InformationOrdered By: Halley Tracie on 07-02-2023 Thyroid Stimulating Hormone (TSH) 0.82 uIU/mL 0.358-3.74 [facility] Troponin I High Sensitivity 79 pg/mL 3.0-54.0 [facility] Comment on above: Please Note: New Deanna t Units and Gender Specific Reference Ranges. For more information see Policy Stat Procedure Gerlaw High Sensitivity Troponin (TNIH) and attachments. Serum or plasma albumin mulugeta urement (mass/volume)Ordered By: Halley Hodges 07-02-2023 Albumin [Mass/Vol] 2.5 g/dL 3.2-5.[address] [facility] Serum or plasma albumin/glob ulin mass ratioOrdered By: Halley Tracie 07-02-2023 Albumin/Globulin [Mass ratio] 1.0 {ratio} 0.9-2.4 [facility] Serum or plasma cholesterol in HDL measurement (mass/volume)Ordered By: Halley Hodges 07-02-2023 Cholesterol in HDL [Mass/Vol] 42 mg/dL >40 [facility] Comment on above: The drugs N-Acetylcy steine and Metamizole may falsely depress this assay. Reference Range HDL <40 mg/dL Low HDL Cholesterol HDL >or= 60 mg/dL High HDL Cholesterol Serum or plasma cholesterol in VLDL measurement (mass/volume)Ordered By: Halley Hodges 07-02-2023 Cholesterol in VLDL [Mass/Vol] 23 mg/dL 5-40 [facility] Serum or plasma low density lipoprotein (LDL) cholesterol measurement (mass/volume)Ordered By: Halley Hodges 07-02-2023 Cholesterol in LDL [Mass/Vol] 9 mg/dL 0-130 [facility] Stool enteric pathogen panel by probe and target amplification methodOrdered By: Halley Hodges on 07-02-2023 Gastrointestinal pathogens panel NELL+probe (Stl) [facility] Thin prep Papanicolaou smear with manual screeningOrdered By: Halley Hodges on 07-02-2023 Thin prep Papanicolaou smear with manual screening 16 U/L 15-37 [facility] Basophil percentageOrdered B y: Иван Valencia on 07-01-2023 Basophil percentage 0-5 SEEN /hpf 0-5 [facility] Bilirubin Test strip Ql (U)O rdered By: Иван Valencia on 07-01-2023 Bilirubin Ql (U) Negative Negative [facility] INR in Blood by Coagulation assayOrdered By: Иван Valencia on 07-01-2023 INR Coag (Bld) [Relative time] 1.0 {INR} [facility] Ketones Test strip Ql (U)Ord ered By: Иван Valencia on 07-01-2023 Ketones Ql (U) Negative Negative [facility] Laboratory - Chemistry and C hemistry - challengeOrdered By: Halley Hodges on 07-01-2023 Magnesium [Mass/Vol] 2.3 mg/dL 1.6-2.6 [facility] Laboratory - CoagulationOrde red By: Иван Valencia on 07-01-2023 aPTT Coag (Bld) [Time] 26.0 s 24.1-36.2 [facility] PT Coag (PPP) [Time] 13.5 s 11.7-14.9 [facility] Mucus LM Ql (Urine sed)Order ed By: Иван Valencia on 07-01-2023 Mucus Ql (Urine sed) 0 SEEN /hpf [facility] Nitrite Test strip Ql (U)Ord ered By: Иван Valencia on 07-01-2023 Nitrite Ql (U) Negative Negative [facility] Protein Test strip Ql (U)Ord ered By: Иван Valencia on 07-01-2023 Protein Ql (U) Negative Negative [facility] Respiratory pathogens detect ion panel by molecular detection methodOrdered By: Halley Hodges on 07-01-2023 Respiratory pathogens DNA and RNA panel NELL+probe (Resp) [facility] Serum procalcitonin measurem entOrdered By: Halley Hodges on 07-01-2023 Procalcitonin [Mass/Vol] ng/mL 0.00-0.09 [facility] Comment on above: A procalcitonin (PCT [...] Ql (Urine sed) 0-5 SEEN /hpf 5-10 [facility] Urine blood detectionOrdered By: Иван Valecnia on 07-01-2023 RBC Ql (U) 10 /ul Negative [facility] RBC Ql (U) 0 SEEN /hpf 0-5 [facility] Urine clarityOrdered By: Nimesh Valencia on 07-01-2023 Clarity (U) Clear Clear [facility] Urine color determinationOrd ered By: Иван Valencia on 07-01-2023 Color (U) Yellow Yellow [facility] Urine glucose detectionOrder ed By: Иван Valencia on 07-01-2023 Glucose Ql (U) Normal mg/dl Normal [facility] Urine leukocyte esterase det ection by dipstickOrdered By: Иван Valencia on 07-01-2023 Leukocyte esterase Test strip Ql (U) Negative Negative [facility] Urine pHOrdered By: Иван Valencia on 07-01-2023 pH (U) 6.5 [pH] 5.0 - 8.0 [facility] Urine sediment bacteria coun t by microscopy (number/high power field)Ordered By: Иван Valencia on 07-01-2023 Bacteria LM.HPF (Urine sed) [#/Area] 0 /[HPF] None Seen [facility] Urine specific gravity measu rementOrdered By: Иван Valencia on 07-01-2023 Specific gravity (U) [Rel density] 1.010 1.002-1.03 0 [facility] Urobilinogen Auto test strip Ql (U)Ordered By: Иван Valencia on 07-01-2023 Urobilinogen Ql (U) Normal mg/dl Normal [facility] Absolute lymphocyte countOrd ered By: Dr. Dallas on 11-04-2022 Lymphocytes Auto (Unsp spec) [#/Vol] 2.30 10*3/uL 0.83-4.51 [facility] Basophil percentageOrdered B y: Dr. Dallas on 11-04-2022 Basophils/100 WBC (Bld) 0.6 % 0-1 [facility] Chloride [Moles/Vol] 104 mmol/L 98-107 [facility] Eosinophils/100 WBC (Bld) 2.7 % 0-5 [facility] Glucose [Mass/Vol] 174 mg/dL 74-[address] [facility] Comment on above: Fasting Glucose resu lt greater than or equal to 126 mg/dL suggests DIABETES MELLITUS per A.D.A. criteria. Neutrophils (Bld) [#/Vol] 6.2 10*3/uL 2.0-7.7 [facility] Neutrophils/100 WBC (Bld) 64.4 % 47-70 [facility] Potassium [Moles/Vol] 3.9 mmol/L 3.5-5.1 [facility] Sodium [Moles/Vol] 137 mmol/L 136-[address] [facility] WBC (Bld) [#/Vol] 9.7 10*3/uL 4.4-11.[address] [facility] Blood erythrocytes count (nu mber/volume)Ordered By: Dr. Dallas on 11-04-2022 RBC (Bld) [#/Vol] 4.71 10*6/uL 4.2-5.4 [facility] Blood hemoglobin measurement (mass/volume)Ordered By: Dr. Dallas on 11-04-2022 Hemoglobin (Bld) [Mass/Vol] 14.2 g/dL 12.0-15.0 [facility] Blood lymphocytes/100 leukoc ytesOrdered By: Dr. Dallas on 11-04-2022 Lymphocytes/100 WBC (Bld) 23.8 % 19-41 [facility] Blood monocytes/100 leukocyt esOrdered By: Dr. Dallas on 11-04-2022 Monocytes/100 WBC (Bld) 8.0 % 0-10 [facility] Blood platelet mean volumeOr dered By: Dr. Dallas on 11-04-2022 Platelet mean volume (Bld) [Entitic vol] 9.4 fL 6.2-12.0 [facility] Determination of erythrocyte mean corpuscular volume (MCV)Ordered By: Dr. Dallas on 11-04-2022 MCV (RBC) [Entitic vol] 92.6 fL 81-99 [facility] Glucose Glucometer (dC) [M ass/Vol]Ordered By: Dr. Dallas on 11-04-2022 Glucose [Mass/Vol] 175 mg/dL 74-[address] [facility] Comment on above: MANAGEMENT OF PATIEN T CARE PER NURSING PROTOCOL Hematocrit Auto (Bld) [Volum e fraction]Ordered By: Dr. Dallas on 11-04-2022 Hematocrit (Bld) [Volume fraction] 43.6 % 37-47 [facility] Laboratory - Chemistry and C hemistry - challengeOrdered By: Dr. Dallas on 11-04-2022 CO2 [Moles/Vol] 25.0 mmol/L 21.0-32.0 [facility] Urea nitrogen/Creatinine [Mass ratio] 20.9 mg/mg 10-20 [facility] Laboratory - Hematology and Cell countsOrdered By: Dr. Dallas on 11-04-2022 Erythrocyte distribution width (RBC) [Entitic vol] 44.3 fL 35.1-43.9 [facility] Erythrocyte distribution width (RBC) [Ratio] 13.1 % 11.6-14.6 [facility] Immature granulocytes/100 WBC (Bld) 0.500 % 0.0-0.9 [facility] Comment on above: IG% - Immature Granu locytes (promyelocytes, myelocytes and metamyelocytes) > 1% indicates that a LEFT SHIFT is Present. MCH (RBC) [Entitic mass] 30.1 pg 27.0-32.0 [facility] Nucleated RBC/100 WBC (Bld) [Ratio] 0 % 0-5 [place] Auto (RBC) [Mass/Vol]Or dered By: Dr. Dallas on 11-04-2022 MCHC (RBC) [Mass/Vol] 32.6 g/dL 32-36 [facility] No Panel InformationOrdered By: Dr. Dallas on 11-04-2022 Estimated Creatinine Clearance Calc 39.21 ml/min [facility] Estimated GFR (MDRD) Amer 135 mL/min >60 [facility] Comment on above: GFR Calc Estimated GFR (MDRD) Non-Af Amer 111 mL/min >60 [facility] Comment on above: Non- GFR Calc Platelets bldOrdered By: Dr. Dallas on 11-04-2022 Platelets (Bld) [#/Vol] 325 10*3/uL 150-450 [facility] Serum or plasma calcium mulugeta urement (mass/volume)Ordered By: Dr. Dallas on 11-04-2022 Calcium [Mass/Vol] 9.4 mg/dL 8.5-10.[address] [facility] Serum or plasma creatinine m easurement (mass/volume)Ordered By: Dr. Dallas on 11-04-2022 Creatinine [Mass/Vol] 0.58 mg/dL 0.55-1.02 [facility] Comment on above: The validity of the calculated GFR & GFRAA in patients over 70 years has not been determined. Clinical correlation is essential. Serum or plasma urea nitroge n measurement (mass/volume)Ordered By: Dr. Dallas on 11-04-2022 Urea nitrogen [Mass/Vol] 12 mg/dL 7-18 [facility] Thin prep Papanicolaou smear with manual screeningOrdered By: Dr. Dallas on 11-04-2022 Thin prep Papanicolaou smear with manual screening 8 5-15 [facility] Basophil percentageOrdered B y: Dr. Mirza on 11-03-2022 Cholesterol [Mass/Vol] 183 mg/dL <200 [facility] Comment on above: <200 mg/dL Desirable 200-240 mg/dL Borderline >240 mg/dL High Risk Triglyceride [Mass/Vol] 146 mg/dL <199 [facility] Comment on above: The drugs N-Acetylcy steine and Metamizole may falsely depress this assay.Serum Triglycerides Reference Interval Normal <150 mg/dL Borderline high 150 - 199 mg/dL High 200 - 499 mg/dL Very High > or = 500 mg/dL Serum or plasma cholesterol in HDL measurement (mass/volume)Ordered By: Dr. Mirza on 11-03-2022 Cholesterol in HDL [Mass/Vol] 55 mg/dL >40 [facility] Comment on above: The drugs N-Acetylcy steine and Metamizole may falsely depress this assay. Reference Range HDL <40 mg/dL Low HDL Cholesterol HDL >or= 60 mg/dL High HDL Cholesterol Serum or plasma cholesterol in VLDL measurement (mass/volume)Ordered By: Dr. Mirza on 11-03-2022 Cholesterol in VLDL [Mass/Vol] 29 mg/dL 5-40 [facility] Serum or plasma low density lipoprotein (LDL) cholesterol measurement (mass/volume)Ordered By: Dr. Mirza on 11-03-2022 Cholesterol in LDL [Mass/Vol] 99 mg/dL 0-130 [facility] Whole blood hemoglobin A1c/t otal hemoglobin ratio (mass fraction)Ordered By: Dr. Mirza on 11-03-2022 HbA1c (Bld) [Mass fraction] 7.0 % 3.8-5.6 [facility] Comment on above: Normal < 5.7 % Predi abetic 5.7 - 6.4 % Diabetic >or= 6.5 % Please note range changes. INR in Blood by Coagulation assayOrdered By: Dr. Chanel on 11-02-2022 INR Coag (Bld) [Relative time] 1.0 {INR} [facility] Laboratory - CoagulationOrde red By: Dr. Chanel on 11-02-2022 aPTT Coag (Bld) [Time] 29.8 s 24.1-36.2 [facility] PT Coag (PPP) [Time] 12.9 s 11.7-14.9 [facility] No Panel InformationOrdered By: Dr. Mirza on 11-02-2022 Troponin I High Sensitivity 12 pg/mL 3.0-54.0 [facility] Comment on above: Please Note: New Deanna t Units and Gender Specific Reference Ranges. For more information see Policy Stat Procedure [place] High Sensitivity Troponin (TNIH) and attachments. Basophil percentageon 2021 Basophil percentage < 0.9 mg/dL 0.55-1.02 [facility] Work Phone: No Panel Informationon 04-09 Bedside Estimated GFR (eGFR) > 60.0000 mL/min >60 [facility] Work Phone: XR ANKLE GENERAL 3V AP/LAT/O BL LEFTon 02-28-2022 [facility] XR ANKLE GENERAL 3V AP/LAT/O BL LEFTon 02-10-2022 [facility] XR ANKLE GENERAL 3V AP/LAT/O BL LEFTon 01-23-2022 [facility] XR Ankle - left AP and Later al and obliqueon 01-23-2022 IMPRESSION: Possible small fracture involving the inferior aspect of the lateral malleolus. Calcaneal spurring. Sales Special Agent: AUGUSTIN Transcribe Date/Time: Jan 23 2022 5:55P Dictated by : RODRIGO GONSALVES MD This examination was interpreted and the report reviewed and electronically signed by: RODRIGO GONSALVES MD on Jan 23 2022 5:59PM EST ZZZ_DO_NOT_ USE_DIVISIO N OF RADIOLOGY * * *Final Report* * [...] is noted adjacent to the lateral malleolus. ZZZ_DO_NOT_ USE_DIVISIO N OF RADIOLOGY Provider, [facility] - 01/23/2022 * * *Final Report* * [...] aspect of the lateral malleolus. Calcaneal spurring. Sales Special Agent: PSCB Transcribe Date/Time: Jan 23 2022 5:55P Dictated by : RODRIGO GONSALVES MD This examination was interpreted and the report reviewed and electronically signed by: RODRIGO GONSALVES MD on Jan 23 2022 5:59PM EST [facility] Radiology Study observation (narrative) [facility] XR Ankle - left AP and Later al and obliqueOrdered By: [facility] Provider on 01-23-2022 [facility] Glucose,Bedsideon 12-28-2020 Glucose [Mass/Vol] 344 mg/dL High 70-100 [facility] Comment on above: Result Comment: Test performed by glucose meter. Results may be 10%-15% lower than serum/plasma values. (CLIA ID [id number]) Performed By: #### B GLU #### [facility] [employer] [address] [place] [phone] Glucose [Mass/Vol] 200 mg/dL High 70-100 [facility] Comment on above: Result Comment: Test performed by glucose meter. Results may be 10%-15% lower than serum/plasma values. (CLIA ID [id number]) Performed By: #### B GLU #### [facility] [employer] [address] [place] [phone] POCT Glucoseon 12-28-2020 Glucose [Mass/Vol] 344 mg/dL High 70 - 100 mg/dL [facility] Work Phone: Comment on above: Test performed by gl ucose meter. Results may be 10%-15% lower than serum/plasma values. (CLIA ID [id number]) Interpretation and review of laboratory results Abnormal [employer] Work Phone: Test Performed by [employer] [facility], [address] [place] [address] [employer] Work Phone: Glucose [Mass/Vol] 200 mg/dL High 70 - 100 mg/dL [employer] Work Phone: Comment on above: Test performed by gl ucose meter. Results may be 10%-15% lower than serum/plasma values. (CLIA ID [id number]) Interpretation and review of laboratory results Abnormal [employer] Work Phone: Test Performed by [employer], [address] [place] [phone] [employer] Work Phone: COVID-19on 12-27-2020 SARS-CoV-2 Not Detected. Not Detected [employer] Work Phone: Comment on above: Not Detected. Expected Result: Not Detected _ Real-time, RT-PCR performed on the [employer] System by the [facility] Negative results do not preclude SARS-CoV-2 infection and should not be used as the sole basis for treatment or other patient management decisions. This assay was developed and its performance characteristics determined by the [facility]. The U. S. Food and Drug Administration has not approved or cleared this test; however, FDA clearance or approval is not currently required for clinical use. Test Performed by [employer], [address] [place] [phone] Glucose,Bedsideon 12-27-2020 Glucose [Mass/Vol] 124 mg/dL High 70-100 [facility] [employer] Comment on above: Result Comment: Test performed by glucose meter. Results may be 10%-15% lower than serum/plasma values. (CLIA ID [id number]) Performed By: #### B GLU #### [facility] [place] [address] Glucose [Mass/Vol] 197 mg/dL High 70-100 [facility] [employer] [facility] Comment on above: Result Comment: Test performed by glucose meter. Results may be 10%-15% lower than serum/plasma values. (CLIA ID [id number]) Performed By: #### B GLU #### [facility] [address] [place] [address] Glucose [Mass/Vol] 215 mg/dL High 70-100 [facility] [employer] Comment on above: Result Comment: Test performed by glucose meter. Results may be 10%-15% lower than serum/plasma values. (CLIA ID [id number]) Performed By: #### B GLU #### [facility] [address] [place] [address] POCT Glucoseon 12-27-2020 Glucose [Mass/Vol] 124 mg/dL High 70 - 100 mg/dL [employer] Work Phone: Comment on above: Test performed by gl ucose meter. Results may be 10%-15% lower than serum/plasma values. (CLIA ID [id number]) Interpretation and review of laboratory results Abnormal [facility] Work Phone: [phone] Test Performed by [employer], [address] [place] [address] [facility] Work Phone: [phone] Glucose [Mass/Vol] 197 mg/dL High 70 - 100 mg/dL [facility] Work Phone: [phone] Comment on above: Test performed by gl ucose meter. Results may be 10%-15% lower than serum/plasma values. (CLIA ID [id number]) Interpretation and review of laboratory results Abnormal [facility] Work Phone: Test Performed by [employer], [address] [place] [address] [facility] Work Phone: Glucose [Mass/Vol] 215 mg/dL High 70 - 100 mg/dL [facility] Work Phone: [phone] Comment on above: Test performed by gl ucose meter. Results may be 10%-15% lower than serum/plasma values. (CLIA ID [id number]) Interpretation and review of laboratory results Abnormal [facility] Work Phone: Test Performed by [employer], [facility] [place] [address] [facility] Work Phone: [id number] 12-27-2020 SARS-CoV-2 (COVID-19) RNA NELL+probe Ql (Unsp spec) SARS-CoV-2 --> Status: F Not Detected. Expected Result: Not Detected _ Real-time, RT-PCR performed on the [employer] System by the [facility] [employer] [facility] Negative results do not preclude SARS-CoV-2 infection and should not be used as the sole basis for treatment or other patient management decisions. This assay was developed and its performance characteristics determined by the [facility] [employer] [facility]. The U. S. Food and Drug Administration has not approved or cleared this test; however, FDA clearance or approval is not currently required for clinical use. Expected Result: Not Detected _ Real-time, RT-PCR performed on the [employer] System by the [facility] [employer] [facility] Negative results do not preclude SARS-CoV-2 infection and should not be used as the sole basis for treatment or other patient management decisions. This assay was developed and its performance characteristics determined by the [facility] [employer] Service. The U. S. Food and Drug Administration has not approved or cleared this test; however, FDA clearance or approval is not currently required for clinical use. Normal [facility] Comment on above: Performed By: #### B GLU #### [facility] [address] [place] [address] Glucose,Bedsideon 12-26-2020 Glucose [Mass/Vol] 186 mg/dL High 70-100 [facility] Comment on above: Result Comment: Test performed by glucose meter. Results may be 10%-15% lower than serum/plasma values. (CLIA ID [id number]) Performed By: #### B GLU #### [facility] [address] [place] [address] Glucose [Mass/Vol] 213 mg/dL High 70-100 [facility] Comment on above: Result Comment: Test performed by glucose meter. Results may be 10%-15% lower than serum/plasma values. (CLIA ID [id number]) Performed By: #### B GLU #### [facility] [address] [place] [address] Glucose [Mass/Vol] 190 mg/dL High 70-100 [facility] Comment on above: Result Comment: Test performed by glucose meter. Results may be 10%-15% lower than serum/plasma values. (CLIA ID [id number]) Performed By: #### M DIFF, HEMDF #### [facility] [address] [place] [address] Glucose [Mass/Vol] 238 mg/dL High 70-100 [facility] Comment on above: Result Comment: Test performed by glucose meter. Results may be 10%-15% lower than serum/plasma values. (CLIA ID [id number]) Performed By: #### B GLU #### [place] [address] [place] [address] Glucose [Mass/Vol] 179 mg/dL High 70-100 [facility] Comment on above: Result Comment: Test performed by glucose meter. Results may be 10%-15% lower than serum/plasma values. (CLIA ID [id number]) Performed By: #### B GLU #### [facility] [place] [address] [place] [address] POCT Glucoseon 12-26-2020 Glucose [Mass/Vol] 186 mg/dL High 70 - 100 mg/dL [facility] Work Phone: Comment on above: Test performed by gl ucose meter. Results may be 10%-15% lower than serum/plasma values. (CLIA ID [id number]) Interpretation and review of laboratory results Abnormal [facility] Work Phone: Test Performed by [employer], [address] [place] [phone] [facility] Work Phone: Glucose [Mass/Vol] 213 mg/dL High 70 - 100 mg/dL [facility] Work Phone: Comment on above: Test performed by gl ucose meter. Results may be 10%-15% lower than serum/plasma values. (CLIA ID [id number]) Interpretation and review of laboratory results Abnormal [facility] Work Phone: Test Performed by [employer], [address] [place] [address] [facility] Work Phone: Glucose [Mass/Vol] 190 mg/dL High 70 - 100 mg/dL [facility] Work Phone: Comment on above: Test performed by gl ucose meter. Results may be 10%-15% lower than serum/plasma values. (CLIA ID [id number]) Interpretation and review of laboratory results Abnormal [facility] Work Phone: Test Performed by [employer], [facility] [place] [address] [facility] Work Phone: Glucose [Mass/Vol] 238 mg/dL High 70 - 100 mg/dL [facility] Work Phone: Comment on above: Test performed by gl ucose meter. Results may be 10%-15% lower than serum/plasma values. (CLIA ID [id number]) Interpretation and review of laboratory results Abnormal [facility] Work Phone: Test Performed by [employer], [facility] [place] [address] [facility] Work Phone: Glucose,Bedsideon 12-25-2020 Glucose [Mass/Vol] 250 mg/dL High 70-100 [facility] Comment on above: Result Comment: Test performed by glucose meter. Results may be 10%-15% lower than serum/plasma values. (CLIA ID [id number]) Performed By: #### B GLU #### [employer] [facility] [place] [address] Glucose [Mass/Vol] 252 mg/dL High 70-100 [facility] Comment on above: Result Comment: Test performed by glucose meter. Results may be 10%-15% lower than serum/plasma values. (CLIA ID [id number]) Performed By: #### B GLU #### [employer] [facility] [place] [address] Glucose [Mass/Vol] 218 mg/dL High 70-100 [facility] Comment on above: Result Comment: Test performed by glucose meter. Results may be 10%-15% lower than serum/plasma values. (CLIA ID [id number]) Performed By: #### B GLU #### [employer] [facility] [place] [address] POCT Glucoseon 12-25-2020 Glucose [Mass/Vol] 179 mg/dL High 70 - 100 mg/dL [facility] Work Phone: Comment on above: Test performed by gl ucose meter. Results may be 10%-15% lower than serum/plasma values. (CLIA ID [id number]) Interpretation and review of laboratory results Abnormal [employer] Work Phone: [phone] Test Performed by [employer], [address] [place] [address] [facility] Work Phone: [phone] Glucose [Mass/Vol] 250 mg/dL High 70 - 100 mg/dL [facility] Work Phone: [phone] Comment on above: Test performed by gl ucose meter. Results may be 10%-15% lower than serum/plasma values. (CLIA ID [id number]) Interpretation and review of laboratory results Abnormal [employer] Work Phone: [phone] Test Performed by [employer], [address] [place] [address] [facility] Work Phone: [phone] Glucose [Mass/Vol] 252 mg/dL High 70 - 100 mg/dL [facility] Work Phone: [phone] Comment on above: Test performed by gl ucose meter. Results may be 10%-15% lower than serum/plasma values. (CLIA ID [id number]) Interpretation and review of laboratory results Abnormal [facility] Work Phone: [phone] Test Performed by [employer], [address] [place] [address] [facility] Work Phone: [phone] Glucose [Mass/Vol] 218 mg/dL High 70 - 100 mg/dL [facility] Work Phone: [phone] Comment on above: Test performed by gl ucose meter. Results may be 10%-15% lower than serum/plasma values. (CLIA ID [id number]) Interpretation and review of laboratory results Abnormal [employer] Work Phone: [phone] Test Performed by [employer] [address] [facility] Work Phone: [phone] CBC Auto Differentialon 11-27 Absolute Baso # 0.1 10*3/uL 0.0 - 0.2 10*3/uL [facility] Work Phone: 1() 222 Absolute Neut # 8.6 10*3/uL High 1.8 - 7.0 10*3/uL [facility] Work Phone: 1() 222 Basophils/100 WBC (Bld) 0.4 % 0.0 - 2.0 % [facility] Work Phone: 1() 222 Eosinophils (Bld) [#/Vol] 0.2 10*3/uL 0.0 - 0.5 10*3/uL [facility] Work Phone: 1() 222 Eosinophils/100 WBC (Bld) 1.5 % 1.0 - 6.0 % [employer] Work Phone: 1) 222 Erythrocyte distribution width (RBC) [Ratio] 13.6 % 11.5 - 14.5 % [employer] Work Phone: () 222 Granulocytes/100 WBC (Bld) 59.5 % 40.0 - 80.0 % [facility] Work Phone: 1) 222 Hematocrit (Bld) [Volume fraction] 37.2 % 35.0 - 47.0 % [employer] Work Phone: ) 222 Hemoglobin (Bld) [Mass/Vol] 12.5 g/dL 11.7 - 16.0 g/dL [employer] Work Phone: 1) 222 Interpretation and review of laboratory results Abnormal [employer] Work Phone: () 222 Lymphocytes (Bld) [#/Vol] 4.5 10*3/uL High 1.0 - 4.3 10*3/uL [facility] Work Phone: 1) 222 Lymphocytes/100 WBC (Bld) 30.8 % 20.0 - 40.0 % [facility] Work Phone: 1) 222 MCH (RBC) [Entitic mass] 30.4 pg 26.0 - 34.0 pg [facility] Work Phone: 1) 222 MCHC (RBC) [Mass/Vol] 33.6 % 32.0 - 36.0 % [facility] Work Phone: MCV (RBC) [Entitic vol] 90.3 fL 79.0 - 98.0 fL [employer] Work Phone: Monocytes (Bld) [#/Vol] 1.1 10*3/uL High 0.0 - 0.8 10*3/uL [employer] Work Phone: Monocytes/100 WBC (Bld) 7.8 % 2.0 - 10.0 % [employer] Work Phone: Platelet mean volume (Bld) [Entitic vol] 7.7 fL 7.4 - 10.4 fL [employer] Work Phone: Platelets (Bld) [#/Vol] 278 10*3/uL 140 - 440 10*3/uL [employer] Work Phone: RBC (Bld) [#/Vol] 4.12 10*6/uL 3.80 - 5.20 10*6/uL [employer] Work Phone: WBC (Bld) [#/Vol] 14.5 10*3/uL High 3.6 - 10.7 10*3/uL [employer] Work Phone: Test Performed by [facility], [address] [place] [address] [facility] Work Phone: [phone] Glucose, Bedsideon 1 Confirmation see below Normal [facility] Comment on above: Result Comment: No c onfirmation received. Performed By: #### G LUB #### [facility] [employer] [address] [place] [address] Glucose,Bedside > 450 High 70-100 [facility] Comment on above: Result Comment: Test performed by glucose meter. Results may be 10%-15% lower than serum/plasma values. (CLIA ID [id number]) Performed By: #### G LUB #### [facility] [employer] [employer] [address] [place] [address] Glucose,Bedsideon 12-24-2020 Glucose [Mass/Vol] 242 mg/dL High 70-100 [facility] Comment on above: Result Comment: Test performed by glucose meter. Results may be 10%-15% lower than serum/plasma values. (CLIA ID [id number]) Performed By: #### M DIFF, HEMDF #### [facility] [address] [place] [address] Glucose [Mass/Vol] 314 mg/dL [address] Comment on above: Result Comment: Test performed by glucose meter. Results may be 10%-15% lower than serum/plasma values. (CLIA ID [id number]) Performed By: #### M DIFF, HEMDF #### [facility] [address] [place] [address] Glucose [Mass/Vol] 192 mg/dL [address] Comment on above: Result Comment: Test performed by glucose meter. Results may be 10%-15% lower than serum/plasma values. (CLIA ID [id number]) Performed By: #### M DIFF, HEMDF #### [facility] [address] [place] [address] Glucose [Mass/Vol] 189 mg/dL [address] Comment on above: Result Comment: Test performed by glucose meter. Results may be 10%-15% lower than serum/plasma values. (CLIA ID [id number]) Performed By: #### B GLU #### [place] [address] [place] [address] Glucose [Mass/Vol] 201 mg/dL [address] Comment on above: Result Comment: Test performed by glucose meter. Results may be 10%-15% lower than serum/plasma values. (CLIA ID [id number]) Performed By: #### M DIFF, HEMDF #### [place] [address] [place] [address] Glucose [Mass/Vol] 247 mg/dL [address] Comment on above: Result Comment: Test performed by glucose meter. Results may be 10%-15% lower than serum/plasma values. (CLIA ID [id number]) Performed By: #### M DIFF, HEMDF #### [facility] [address] [place], [place] Hemogram w/ Autodiffon 12-24 Abs Baso Cnt 0.1 10*3/uL Normal 0.0-0.2 [facility] Comment on above: Performed By: #### B GLU #### [facility] [address] [place], [place] Abs Neutrophile Cnt 8.6 10*3/uL High 1.8-7.0 [facility] Comment on above: Performed By: #### B GLU #### [place] [address] [place], [place] Basophils/100 WBC (Bld) 0.4 % Normal 0.0-2.0 [facility] Comment on above: Performed By: #### B GLU #### [place] [address] [place], [place] Eosinophils (Bld) [#/Vol] 0.2 10*3/uL Normal 0.0-0.5 [facility] Comment on above: Performed By: #### B GLU #### [place] [address] [place], [place] Eosinophils/100 WBC (Bld) 1.5 % Normal 1.0-6.0 [facility] Comment on above: Performed By: #### B GLU #### [place] [address] [place], [place] Erythrocyte distribution width (RBC) [Ratio] 13.6 % Normal 11.5-14.5 [facility] Comment on above: Performed By: #### B GLU #### [place] [address] [place] [address] Granulocytes/100 WBC (Bld) 59.5 % Normal 40.0-80.0 [facility] Comment on above: Performed By: #### B GLU #### [place] [address] [place], [place] Hematocrit (Bld) [Volume fraction] 37.2 % Normal 35.0-47.0 [facility] Comment on above: Performed By: #### B GLU #### [facility] [address] [place], [place] Hemoglobin (Bld) [Mass/Vol] 12.5 g/dL Normal 11.7-16.0 [facility] Comment on above: Performed By: #### B GLU #### [facility] [address] [place], [place] Lymphocytes (Bld) [#/Vol] 4.5 10*3/uL High 1.0-4.3 [facility] Comment on above: Performed By: #### B GLU #### [place] [address] [place], [place] Lymphocytes/100 WBC (Bld) 30.8 % Normal 20.0-40.0 [facility] Comment on above: Performed By: #### B GLU #### [place] [address] [place], [place] MCH (RBC) [Entitic mass] 30.4 pg Normal 26.0-34.0 [facility] Comment on above: Performed By: #### B GLU #### [place] [address] [place] MCHC 33.6 % Normal 32.0-36.0 [facility] Comment on above: Performed By: #### B GLU #### [place] [address] [place] MCV (RBC) [Entitic vol] 90.3 fL Normal 79.0-98.0 [facility] Comment on above: Performed By: #### B GLU #### [place] [address] [place], [place] Monocytes (Bld) [#/Vol] 1.1 10*3/uL High 0.0-0.8 [facility] Comment on above: Performed By: #### B GLU #### [place] [address] [place], [place] Monocytes/100 WBC (Bld) 7.8 % Normal 2.0-10.0 [facility] Comment on above: Performed By: #### B GLU #### [place] [address] [place], [place] Platelet mean volume (Bld) [Entitic vol] 7.7 fL Normal 7.4-10.4 [facility] Comment on above: Performed By: #### B GLU #### [facility] [address] [place], [place] Platelets (Bld) [#/Vol] 278 10*3/uL Normal 140-440 [facility] Comment on above: Performed By: #### B GLU #### [facility] [address] [place], [place] RBC (Bld) [#/Vol] 4.12 10*6/uL Normal 3.80-5.20 [facility] Comment on above: Performed By: #### B GLU #### [place] [address] [place], [place] WBC (Bld) [#/Vol] 14.5 10*3/uL High 3.6-10.7 [facility] Comment on above: Performed By: #### B GLU #### [facility] [address] [place], [place] POC Glucose, Whole Bloodon 0 12-24-2020 Glucose [Mass/Vol] mg/dL High 70 - 100 mg/dL [facility] Work Phone: Comment on above: Test performed by gl ucose meter. Results may be 10%-15% lower than serum/plasma values. (CLIA ID [id number]) Interpretation and review of laboratory results Abnormal [facility] Work Phone: Sodium [Moles/Vol] see below [facility] Work Phone: Comment on above: No confirmation rece ived. Test Performed by [facility], [address] [place] [address] [facility] Work Phone: POCT Glucoseon 12-24-2020 Glucose [Mass/Vol] 242 mg/dL High 70 - 100 mg/dL [facility] Work Phone: Comment on above: Test performed by gl ucose meter. Results may be 10%-15% lower than serum/plasma values. (CLIA ID [id number]) Interpretation and review of laboratory results Abnormal [facility] Work Phone: [phone] Test Performed by [employer], [place] [address] [facility] Work Phone: [phone] Glucose [Mass/Vol] 314 mg/dL High 70 - 100 mg/dL [facility] Work Phone: [phone] Comment on above: Test performed by gl ucose meter. Results may be 10%-15% lower than serum/plasma values. (CLIA ID [id number]) Interpretation and review of laboratory results Abnormal [facility] Work Phone: Test Performed by [employer], [place] [address] [facility] Work Phone: [phone] Glucose [Mass/Vol] 192 mg/dL High 70 - 100 mg/dL [facility] Work Phone: [phone] Comment on above: Test performed by gl ucose meter. Results may be 10%-15% lower than serum/plasma values. (CLIA ID [id number]) Interpretation and review of laboratory results Abnormal [facility] Work Phone: [phone] Test Performed by [employer], [facility] [place] [address] [facility] Work Phone: [phone] Glucose [Mass/Vol] 189 mg/dL High 70 - 100 mg/dL [facility] Work Phone: [phone] Comment on above: Test performed by gl ucose meter. Results may be 10%-15% lower than serum/plasma values. (CLIA ID [id number]) Interpretation and review of laboratory results Abnormal [facility] Work Phone: [phone] Test Performed by [employer], [place] [address] [facility] Work Phone: [phone] Glucose [Mass/Vol] 201 mg/dL High 70 - 100 mg/dL [facility] Work Phone: Comment on above: Test performed by gl ucose meter. Results may be 10%-15% lower than serum/plasma values. (CLIA ID [id number]) Interpretation and review of laboratory results Abnormal [facility] Work Phone: [phone] Test Performed by [employer], [address] [place] [address] [facility] Work Phone: 1 Glucose [Mass/Vol] 247 mg/dL High 70 - 100 mg/dL [employer] Work Phone: 1( Comment on above: Test performed by gl ucose meter. Results may be 10%-15% lower than serum/plasma values. (CLIA ID [id number]) Interpretation and review of laboratory results Abnormal [employer] Work Phone: 1() Test Performed by [employer], [address] [place] [address] [employer] Work Phone: 1 TSH without Reflexon 021 TSH Qn 3.200 u[IU]/mL 0.465 - 4.680 u[IU]/mL [employer] Work Phone: 1 Test Performed by [employer], [address] [place] [address] [employer] Work Phone: 1() Thyroid Stim. Hormoneon 11-27 Thyroid Stim. Hormone 3.200 u[IU]/mL Normal 0.46 5-4.68 0 [employer] Comment on above: Performed By: #### M DIFF, HEMDF #### [employer] [address] [place] [phone] CBC Auto Differentialon 11-27 Absolute Baso # 0.1 10*3/uL 0.0 - 0.2 10*3/uL [employer] Work Phone: 1() 222 Absolute Neut # 13.3 10*3/uL High 1.8 - 7.0 10*3/uL [employer] Work Phone: 1) 222 Basophils/100 WBC (Bld) 0.8 % 0.0 - 2.0 % [employer] Work Phone: ) 222 Eosinophils (Bld) [#/Vol] 0.0 10*3/uL 0.0 - 0.5 10*3/uL [employer] Work Phone: 1) 222 Eosinophils/100 WBC (Bld) 0.0 % Low 1.0 - 6.0 % [employer] Work Phone: 1) 222 Erythrocyte distribution width (RBC) [Ratio] 13.4 % 11.5 - 14.5 % [employer] Work Phone: 1) 222 Granulocytes/100 WBC (Bld) 85.4 % High 40.0 - 80.0 % [employer] Work Phone: 222 Hematocrit (Bld) [Volume fraction] 37.0 % 35.0 - 47.0 % [employer] Work Phone: 1 222 Hemoglobin (Bld) [Mass/Vol] 12.6 g/dL 11.7 - 16.0 g/dL [employer] Work Phone: 1) 222 Interpretation and review of laboratory results Abnormal [employer] Work Phone: 222 Lymphocytes (Bld) [#/Vol] 1.4 10*3/uL 1.0 - 4.3 10*3/uL [employer] Work Phone: 1) 222 Lymphocytes/100 WBC (Bld) 8.9 % Low 20.0 - 40.0 % [employer] Work Phone: 1) 222 MCH (RBC) [Entitic mass] 30.8 pg 26.0 - 34.0 pg [employer] Work Phone: ) 222 MCHC (RBC) [Mass/Vol] 34.1 % 32.0 - 36.0 % [employer] Work Phone: ) 222 MCV (RBC) [Entitic vol] 90.3 fL 79.0 - 98.0 fL [employer] Work Phone: ) 222 Monocytes (Bld) [#/Vol] 0.8 10*3/uL 0.0 - 0.8 10*3/uL [employer] Work Phone: 1() 222 Monocytes/100 WBC (Bld) 4.9 % 2.0 - 10.0 % [employer] Phone: 1) 222 Platelet mean volume (Bld) [Entitic vol] 7.9 fL 7.4 - 10.4 fL [employer] Work Phone: ) 222 Platelets (Bld) [#/Vol] 287 10*3/uL 140 - 440 10*3/uL [employer] Work Phone: RBC (Bld) [#/Vol] 4.10 10*6/uL 3.80 - 5.20 10*6/uL [employer] Work Phone: WBC (Bld) [#/Vol] 15.6 10*3/uL High 3.6 - 10.7 10*3/uL [employer] Work Phone: Test Performed by [facility] [employer] [facility], [address] [place] [address] [facility] Work Phone: Glucose,Bedsideon 12-23-2020 Glucose [Mass/Vol] 192 mg/dL High [address] [facility] Comment on above: Result Comment: Test performed by glucose meter. Results may be 10%-15% lower than serum/plasma values. (CLIA ID [id number]) Performed By: #### B GLU #### [facility] [employer] [place] [address] [place] [address] Glucose [Mass/Vol] 244 mg/dL [facility] [address] Comment on above: Result Comment: Test performed by glucose meter. Results may be 10%-15% lower than serum/plasma values. (CLIA ID [id number]) Performed By: #### B GLU #### [facility] [employer] [facility] [place] [address] Glucose [Mass/Vol] 187 mg/dL [facility] [address] Comment on above: Result Comment: Test performed by glucose meter. Results may be 10%-15% lower than serum/plasma values. (CLIA ID [id number]) Performed By: #### M DIFF, HEMDF #### [facility] [employer] [place] [address] [place] [address] Glucose [Mass/Vol] 264 mg/dL [facility] [address] [facility] Comment on above: Result Comment: Test performed by glucose meter. Results may be 10%-15% lower than serum/plasma values. (CLIA ID [id number]) Performed By: #### B GLU #### [facility] [employer] [facility] [place] [address] Glucose [Mass/Vol] 246 mg/dL High 70-100 [facility] Comment on above: Result Comment: Test performed by glucose meter. Results may be 10%-15% lower than serum/plasma values. (CLIA ID [id number]) Performed By: #### M DIFF, HEMDF #### [place] [address] [place], [place] Glucose [Mass/Vol] 325 mg/dL High 70-100 [facility] Comment on above: Result Comment: Test performed by glucose meter. Results may be 10%-15% lower than serum/plasma values. (CLIA ID [id number]) Performed By: #### B GLU #### [place] [address] [place], [place] Hemogram w/ Autodiffon 12-23 Abs Baso Cnt 0.1 10*3/uL Normal 0.0-0.2 [facility] Comment on above: Performed By: #### M DIFF, HEMDF #### [place] [address] [place], [place] Abs Neutrophile Cnt 13.3 10*3/uL High 1.8-7.0 [facility] Comment on above: Performed By: #### M DIFF, HEMDF #### [place] [address] [place], [place] Basophils/100 WBC (Bld) 0.8 % Normal 0.0-2.0 [facility] Comment on above: Performed By: #### M DIFF, HEMDF #### [place] [address] [place], [place] Eosinophils (Bld) [#/Vol] 0.0 10*3/uL Normal 0.0-0.5 [facility] Comment on above: Performed By: #### M DIFF, HEMDF #### [place] [address] [place], [place] Eosinophils/100 WBC (Bld) 0.0 % Low 1.0-6.0 [facility] Comment on above: Performed By: #### M DIFF, HEMDF #### [place] [address] [place] Erythrocyte distribution width (RBC) [Ratio] 13.4 % Normal 11.5-14.5 [facility] Comment on above: Performed By: #### M DIFF, HEMDF #### [place] [address] [place] Granulocytes/100 WBC (Bld) 85.4 % High 40.0-80.0 [facility] Comment on above: Performed By: #### M DIFF, HEMDF #### [place] [address] [place] Hematocrit (Bld) [Volume fraction] 37.0 % Normal 35.0-47.0 [facility] Comment on above: Performed By: #### M DIFF, HEMDF #### [place] [address] [place] Hemoglobin (Bld) [Mass/Vol] 12.6 g/dL Normal 11.7-16.0 [facility] Comment on above: Performed By: #### M DIFF, HEMDF #### [place] [address] [place] Lymphocytes (Bld) [#/Vol] 1.4 10*3/uL Normal 1.0-4.3 [facility] Comment on above: Performed By: #### M DIFF, HEMDF #### [place] [address] [place], [place] Lymphocytes/100 WBC (Bld) 8.9 % Low 20.0-40.0 [facility] Comment on above: Performed By: #### M DIFF, HEMDF #### [place] [address] [place] MCH (RBC) [Entitic mass] 30.8 pg Normal 26.0-34.0 [facility] Comment on above: Performed By: #### M DIFF, HEMDF #### [place] [address] [place] MCHC 34.1 % Normal 32.0-36.0 [facility] Comment on above: Performed By: #### M DIFF, HEMDF #### [place] [address] [place] MCV (RBC) [Entitic vol] 90.3 fL Normal 79.0-98.0 [facility] Comment on above: Performed By: #### M DIFF, HEMDF #### [facility] [address] [place], [place] Monocytes (Bld) [#/Vol] 0.8 10*3/uL Normal 0.0-0.8 [facility] Comment on above: Performed By: #### M DIFF, HEMDF #### [place] [address] [place], [place] Monocytes/100 WBC (Bld) 4.9 % Normal 2.0-10.0 [facility] Comment on above: Performed By: #### M DIFF, HEMDF #### [place] [address] [place] Platelet mean volume (Bld) [Entitic vol] 7.9 fL Normal 7.4-10.4 [facility] Comment on above: Performed By: #### M DIFF, HEMDF #### [place] [address] [place] Platelets (Bld) [#/Vol] 287 10*3/uL Normal 140-440 [facility] Comment on above: Performed By: #### M DIFF, HEMDF #### [place] [address] [place], [place] RBC (Bld) [#/Vol] 4.10 10*6/uL Normal 3.80-5.20 [facility] Comment on above: Performed By: #### M DIFF, HEMDF #### [place] [address] [place], [place] WBC (Bld) [#/Vol] 15.6 10*3/uL High 3.6-10.7 [facility] Comment on above: Performed By: #### M DIFF, HEMDF #### [place] [address] [place], [place] POCT Glucoseon 12-23-2020 Glucose [Mass/Vol] 192 mg/dL High 70 - 100 mg/dL [facility] Work Phone: [phone] Comment on above: Test performed by gl ucose meter. Results may be 10%-15% lower than serum/plasma values. (CLIA ID [id number]) Interpretation and review of laboratory results Abnormal [facility] Work Phone: [phone] Test Performed by [employer], [facility] [place] [address] [facility] Work Phone: [phone] Glucose [Mass/Vol] 244 mg/dL High 70 - 100 mg/dL [facility] Work Phone: [phone] Comment on above: Test performed by gl ucose meter. Results may be 10%-15% lower than serum/plasma values. (CLIA ID [id number]) Interpretation and review of laboratory results Abnormal [facility] Work Phone: [phone] Test Performed by [employer], [facility] [place] [address] [facility] Work Phone: [phone] Glucose [Mass/Vol] 187 mg/dL High 70 - 100 mg/dL [facility] Work Phone: [phone] Comment on above: Test performed by gl ucose meter. Results may be 10%-15% lower than serum/plasma values. (CLIA ID [id number]) Interpretation and review of laboratory results Abnormal [facility] Work Phone: [phone] Test Performed by [employer], [facility] [place] [address] [facility] Work Phone: [phone] Glucose [Mass/Vol] 264 mg/dL High 70 - 100 mg/dL [facility] Work Phone: [phone] Comment on above: Test performed by gl ucose meter. Results may be 10%-15% lower than serum/plasma values. (CLIA ID [id number]) Interpretation and review of laboratory results Abnormal [facility] Work Phone: [phone] Test Performed by [employer], [facility] [place] [address] [facility] Work Phone: [phone] Glucose [Mass/Vol] 246 mg/dL High 70 - 100 mg/dL [facility] Work Phone: [phone] Comment on above: Test performed by gl ucose meter. Results may be 10%-15% lower than serum/plasma values. (CLIA ID [id number]) Interpretation and review of laboratory results Abnormal [employer] Work Phone: 1 Test Performed by [employer], [facility] [place] [address] [facility] Work Phone: Glucose [Mass/Vol] 325 mg/dL High 70 - 100 mg/dL [facility] Work Phone: Comment on above: Test performed by [employer] ucose meter. Results may be 10%-15% lower than serum/plasma values. (CLIA ID [id number]) Interpretation and review of laboratory results Abnormal [employer] Work Phone: 1 Test Performed by [employer], [facility] [place] [address] [facility] Work Phone: 1 CBC Auto Differentialon 11-27 Erythrocyte distribution width (RBC) [Ratio] 13.7 % 11.5 - 14.5 % [facility] Work Phone: Hematocrit (Bld) [Volume fraction] 39.2 % 35.0 - 47.0 % [facility] Work Phone: Hemoglobin (Bld) [Mass/Vol] 13.1 g/dL 11.7 - 16.0 g/dL [facility] Work Phone: 1 Interpretation and review of laboratory results Abnormal [employer] Work Phone: MCH (RBC) [Entitic mass] 30.2 pg 26.0 - 34.0 pg [facility] Work Phone: MCHC (RBC) [Mass/Vol] 33.3 % 32.0 - 36.0 % [facility] Work Phone: MCV (RBC) [Entitic vol] 90.7 fL 79.0 - 98.0 fL [facility] Work Phone: Platelet mean volume (Bld) [Entitic vol] 7.8 fL 7.4 - 10.4 fL [facility] Work Phone: Platelets (Bld) [#/Vol] 315 10*3/uL 140 - 440 10*3/uL [employer] Work Phone: RBC (Bld) [#/Vol] 4.32 10*6/uL 3.80 - 5.20 10*6/uL [employer] Work Phone: WBC (Bld) [#/Vol] 19.6 10*3/uL High 3.6 - 10.7 10*3/uL [employer] Work Phone: Test Performed by [facility], [address] [place] [address] [facility] Work Phone: Glucose,Bedsideon 12-22-2020 Glucose [Mass/Vol] 239 mg/dL High 70-100 [facility] Comment on above: Result Comment: Test performed by glucose meter. Results may be 10%-15% lower than serum/plasma values. (CLIA ID [id number]) Performed By: #### B GLU #### [facility] [employer] [facility] [place] [address] Glucose [Mass/Vol] 276 mg/dL High [address] Comment on above: Result Comment: Test performed by glucose meter. Results may be 10%-15% lower than serum/plasma values. (CLIA ID [id number]) Performed By: #### B GLU #### [facility] [employer] [facility] [place] [address] Glucose [Mass/Vol] 361 mg/dL [facility] [address] Comment on above: Result Comment: Test performed by glucose meter. Results may be 10%-15% lower than serum/plasma values. (CLIA ID [id number]) Performed By: #### B GLU #### [facility] [employer] [facility] [place] [address] Glucose [Mass/Vol] 323 mg/dL [facility] [address] Comment on above: Result Comment: Test performed by glucose meter. Results may be 10%-15% lower than serum/plasma values. (CLIA ID [id number]) Performed By: #### B GLU #### [facility] [employer] [facility] [place] Glucose [Mass/Vol] 351 mg/dL High 70-100 [facility] Comment on above: Result Comment: Test performed by glucose meter. Results may be 10%-15% lower than serum/plasma values. (CLIA ID [id number]) Performed By: #### B GLU #### [facility] [address] [place] [address] Glucose [Mass/Vol] 293 mg/dL High 70-100 [facility] Comment on above: Result Comment: Test performed by glucose meter. Results may be 10%-15% lower than serum/plasma values. (CLIA ID [id number]) Performed By: #### B GLU #### [address] [place] [address] Hemoglobin A1Con 12-22-2020 Glucose [Mass/Vol] 203 mg/dL Normal [facility] Comment on above: Performed By: #### B GLU #### [address] [place], [place] HbA1c (Bld) [Mass fraction] 8.7 % Abnormal [facility] Comment on above: Result Comment: Norm al less than 5.7% Prediabetes 5.7% to 6.4% Diabetes 6.5% or higher --HgbA1C levels may not be accurate in patients who have renal disease, received recent blood transfusions, are anemic, or who have dyshemoglobinemia. Performed By: #### B GLU #### [facility] [address] [place] [address] Hemoglobin A1con 12-22-2020 eAG 203 mg/dL [facility] Work Phone: HbA1c (Bld) [Mass fraction] 8.7 % Abnormal [facility] Work Phone: Comment on above: Normal less than 5.7 % Prediabetes 5.7% to 6.4% Diabetes 6.5% or higher --HgbA1C levels may not be accurate in patients who have renal disease, received recent blood transfusions, are anemic, or who have dyshemoglobinemia. Interpretation and review of laboratory results Abnormal [facility] Work Phone: Test Performed by [facility], [address] [place] [address] [facility] Work Phone: Hemogram w/ Autodiffon 12-22 Erythrocyte distribution width (RBC) [Ratio] 13.7 % Normal 11.5-14.5 [facility] Comment on above: Performed By: #### M DIFF, HEMDF #### [address] [place], [place] Hematocrit (Bld) [Volume fraction] 39.2 % Normal 35.0-47.0 [facility] Comment on above: Performed By: #### M DIFF, HEMDF #### [address] [place], [place] Hemoglobin (Bld) [Mass/Vol] 13.1 g/dL Normal 11.7-16.0 [facility] Comment on above: Performed By: #### M DIFF, HEMDF #### [address] [place], [place] MCH (RBC) [Entitic mass] 30.2 pg Normal 26.0-34.0 [facility] Comment on above: Performed By: #### M DIFF, HEMDF #### [address] [place] MCHC 33.3 % Normal 32.0-36.0 [facility] Comment on above: Performed By: #### M DIFF, HEMDF #### [address] [place], [place] MCV (RBC) [Entitic vol] 90.7 fL Normal 79.0-98.0 [facility] Comment on above: Performed By: #### M DIFF, HEMDF #### [address] [place], [place] Platelet mean volume (Bld) [Entitic vol] 7.8 fL Normal 7.4-10.4 [facility] Comment on above: Performed By: #### M DIFF, HEMDF #### [address] [place], [place] Platelets (Bld) [#/Vol] 315 10*3/uL Normal 140-440 [facility] Comment on above: Performed By: #### M DIFF, HEMDF #### [address] [place], [place] RBC (Bld) [#/Vol] 4.32 10*6/uL Normal 3.80-5.20 [facility] Comment on above: Performed By: #### M DIFF, HEMDF #### [address] [place], [place] WBC (Bld) [#/Vol] 19.6 10*3/uL High 3.6-10.7 [facility] Comment on above: Performed By: #### M DIFF, HEMDF #### [address] [place], [place] Manual Diffon 12-22-2020 Abs Lymph Cnt 2.7 10*3/uL Normal 1.1-4.5 [facility] Comment on above: Performed By: #### M DIFF, HEMDF #### [address] [place], [place] Abs Monocyte Cnt 1.6 10*3/uL High 0.2-1.1 [facility] Comment on above: Performed By: #### M DIFF, HEMDF #### [address] [place], [place] Abs Neutrophile Cnt 15.3 10*3/uL High 2.2-8.2 [facility] Comment on above: Performed By: #### M DIFF, HEMDF #### [address] [place], [place] Lymphocytes 14 % Low 20-40 [facility] Comment on above: Performed By: #### M DIFF, HEMDF #### [address] [place], [place] Monocytes 8 % Normal 2-10 [facility] Comment on above: Performed By: #### M DIFF, HEMDF #### [address] [place], [place] RBC Morphology Normal Normal [facility] Comment on above: Performed By: #### M DIFF, HEMDF #### [facility] [address] [place], [place] Seg Neutrophils 78 % Normal 40-80 [facility] Comment on above: Performed By: #### M DIFF, HEMDF #### [facility] [address] [place], [place] Abs Baso Cnt 0.0 10*3/uL Normal 0.0-0.2 [facility] Comment on above: Performed By: #### M DIFF, HEMDF #### [address] [place], [place] Abs Eosin Cnt 0.0 10*3/uL Normal 0.0-0.5 [facility] Comment on above: Performed By: #### M DIFF, HEMDF #### [address] [place], [place] Bands 0 % Normal 0-3 [facility] Comment on above: Performed By: #### M DIFF, HEMDF #### [address] [place] Basophils 0 % Normal 0-2 [facility] Comment on above: Performed By: #### M DIFF, HEMDF #### [address] [place], [place] Cells counted 100 Normal [facility] Comment on above: Performed By: #### M DIFF, HEMDF #### [address] [place] Eosinophils 0 % Low 1-6 [facility] Comment on above: Performed By: #### M DIFF, HEMDF #### [address] [place], [place] Manual Differentialon 2020 Absolute Baso # 0.0 10*3/uL 0.0 - 0.2 10*3/uL [facility] Work Phone: Absolute Eos # 0.0 10*3/uL 0.0 - 0.5 10*3/uL [facility] Work Phone: Absolute Lymph # 2.7 10*3/uL 1.1 - 4.5 10*3/uL [facility] Work Phone: Absolute [place] # 1.6 10*3/uL High 0.2 - 1.1 10*3/uL [facility] Work Phone: [phone] Absolute Neut # 15.3 10*3/uL High 2.2 - 8.2 10*3/uL [facility] Work Phone: [phone] Bands 0 % 0 - 3 % [facility] Work Phone: [phone] Basophils 0 % 0 - 2 % [facility] Work Phone: [phone] Eosinophils 0 % Low 1 - 6 % [facility] Work Phone: [phone] Interpretation and review of laboratory results Abnormal [facility] Work Phone: [phone] Lymphocytes 14 % Low 20 - 40 % [facility] Work Phone: [phone] Monocytes 8 % 2 - 10 % [facility] Work Phone: [phone] RBC morphology finding Nom (Bld) Normal [facility] Work Phone: [phone] Seg Neutrophils 78 % 40 - 80 % [facility] Work Phone: [phone] TOTAL CELLS COUNTED 100 [facility] Work Phone: [phone] Test Performed by [employer], [place] [address] [facility] Work Phone: [phone] POCT Glucoseon 12-22-2020 Glucose [Mass/Vol] 239 mg/dL High 70 - 100 mg/dL [facility] Work Phone: [phone] Comment on above: Test performed by gl ucose meter. Results may be 10%-15% lower than serum/plasma values. (CLIA ID [id number]) Interpretation and review of laboratory results Abnormal [facility] Work Phone: [phone] Test Performed by [employer], [place] [address] [facility] Work Phone: [phone] Glucose [Mass/Vol] 276 mg/dL High 70 - 100 mg/dL [facility] Work Phone: [phone] Comment on above: Test performed by gl ucose meter. Results may be 10%-15% lower than serum/plasma values. (CLIA ID [id number]) Interpretation and review of laboratory results Abnormal [facility] Work Phone: [phone] Test Performed by [employer], [place] [address] [facility] Work Phone: [phone] Glucose [Mass/Vol] 361 mg/dL High 70 - 100 mg/dL [facility] Work Phone: [phone] Comment on above: Test performed by gl ucose meter. Results may be 10%-15% lower than serum/plasma values. (CLIA ID [id number]) Interpretation and review of laboratory results Abnormal [facility] Work Phone: [phone] Test Performed by [employer], [place] [address] [facility] Work Phone: [phone] Glucose [Mass/Vol] 323 mg/dL High 70 - 100 mg/dL [facility] Work Phone: [phone] Comment on above: Test performed by gl ucose meter. Results may be 10%-15% lower than serum/plasma values. (CLIA ID [id number]) Interpretation and review of laboratory results Abnormal [facility] Work Phone: [phone] Test Performed by [employer], [facility] [place] [address] [facility] Work Phone: [phone] Glucose [Mass/Vol] 351 mg/dL High 70 - 100 mg/dL [facility] Work Phone: [phone] Comment on above: Test performed by gl ucose meter. Results may be 10%-15% lower than serum/plasma values. (CLIA ID [id number]) Interpretation and review of laboratory results Abnormal [facility] Work Phone: [phone] Test Performed by [employer], [place] [address] [facility] Work Phone: [phone] Glucose [Mass/Vol] 293 mg/dL High 70 - 100 mg/dL [facility] Work Phone: [phone] Comment on above: Test performed by gl ucose meter. Results may be 10%-15% lower than serum/plasma values. (CLIA ID [id number]) Interpretation and review of laboratory results Abnormal [facility] Work Phone: Test Performed by [facility], [address] [place] [address] [facility] Work Phone: APTTon 12-21-2020 aPTT Coag (Bld) [Time] 25.8 s Normal 20.0-30.5 [facility] Comment on above: Result Comment: NOTE : The therapeutic time for Heparin anticoagulation, based on Xa activity inhibition, is an APTT of 46-80 seconds. Performed By: #### B GLU #### [facility] [address] [place], [place] aPTT Coag (Bld) [Time] 25.8 s 20.0 - 30.5 s [facility] Work Phone: Comment on above: NOTE: The therapeuti c time for Heparin anticoagulation, based on Xa activity inhibition, is an APTT of 46-80 seconds. Basic Metabolic Panelon 11-27 Calcium [Mass/Vol] 9.7 mg/dL Normal 8.4-10.4 [facility] Comment on above: Performed By: #### B GLU #### [address] [place], [place] Glucose [Mass/Vol] 311 mg/dL High 70-100 [facility] Comment on above: Performed By: #### B GLU #### [address] [place], [place] Anion gap [Moles/Vol] 7 mmol/L Normal 3-13 [facility] Comment on above: Performed By: #### B GLU #### [address] [place], [place] CO2 [Moles/Vol] 26 mmol/L Normal 22-30 [facility] Comment on above: Performed By: #### B GLU #### [facility] [address] [place], [place] Creatinine [Mass/Vol] 0.42 mg/dL Low 0.52-1.25 [facility] Comment on above: Performed By: #### B GLU #### [facility] [address] [place], [place] eGFR OTHER > 90.0 Normal >60 [facility] Comment on above: Result Comment: KDIG O [...] secretion. Performed By: #### B GLU #### [address] [place], [place] GFR/1.73 sq M.predicted among blacks MDRD (S/P/Bld) [Vol rate/Area] mL/min/{1.73_m2} Normal >60 [facility] Comment on above: Performed By: #### B GLU #### [address] [place], [place] Urea nitrogen [Mass/Vol] 15 mg/dL Normal 7-20 [facility] Comment on above: Performed By: #### B GLU #### [address] [place], [place] Chloride [Moles/Vol] 99 mmol/L Normal 98-107 [facility] Comment on above: Performed By: #### B GLU #### [address] [place], [place] Potassium [Moles/Vol] 3.9 mmol/L Normal 3.5-5.1 [facility] Comment on above: Performed By: #### B GLU #### [address] [place], [place] Sodium [Moles/Vol] 132 mmol/L Low 135-145 [facility] Comment on above: Performed By: #### B GLU #### [facility] [address] [address] Anion gap [Moles/Vol] 7 mmol/L 3 - 13 mmol/L [facility] Work Phone: Calcium [Mass/Vol] 9.7 mg/dL 8.4 - 10. 4 mg/dL [facility] Work Phone: [phone] Chloride [Moles/Vol] 99 mmol/L 98 - 10 7 mmol/L [facility] Work Phone: [phone] CO2 [Moles/Vol] 26 mmol/L 22 - 30 mmol/L [facility] Work Phone: [phone] Creatinine [Mass/Vol] 0.42 mg/dL Low 0.52 - 1.25 mg/dL [facility] Work Phone: [phone] EGFR IF NonAfrican Maltese >90.0 >60 mL/min [facility] Work Phone: [phone] Comment on above: KDIGO guidelines pro vide [...] rate/Area] mL/min/{1.73_m2} >60 mL/min [facility] Work Phone: Glucose [Mass/Vol] 311 mg/dL High 70 - 100 mg/dL [facility] Work Phone: [phone] Interpretation and review of laboratory results Abnormal [facility] Work Phone: [phone] Potassium [Moles/Vol] 3.9 mmol/L 3.5 - 5.1 mmol/L [facility] Work Phone: [phone] Sodium [Moles/Vol] 132 mmol/L Low 135 - 145 mmol/L [facility] Work Phone: [phone] Urea nitrogen [Mass/Vol] 15 mg/dL 7 - 20 mg/dL [employer] Work Phone: [phone] Test Performed by [address] [address] [facility] Work Phone: [phone] CBCon 12-21-2020 Erythrocyte distribution width (RBC) [Ratio] 13.3 % 11.5 - 14.5 % [facility] Work Phone: [phone] Hematocrit (Bld) [Volume fraction] 45.2 % 35.0 - 47.0 % [employer] Work Phone: Hemoglobin (Bld) [Mass/Vol] 15.1 g/dL 11.7 - 16.0 g/dL [facility] Work Phone: [phone] MCH (RBC) [Entitic mass] 30.3 pg 26.0 - 34.0 pg [facility] Work Phone: ) 222 MCHC (RBC) [Mass/Vol] 33.5 % 32.0 - 36.0 % [facility] Work Phone: 222 MCV (RBC) [Entitic vol] 90.7 fL 79.0 - 98.0 fL [employer] Work Phone: 222 Platelet mean volume (Bld) [Entitic vol] 7.7 fL 7.4 - 10.4 fL [facility] Work Phone: ) 222 Platelets (Bld) [#/Vol] 332 10*3/uL 140 - 440 10*3/uL [facility] Work Phone: ) 222 RBC (Bld) [#/Vol] 4.99 10*6/uL 3.80 - 5.20 10*6/uL [facility] Work Phone: ) 222 WBC (Bld) [#/Vol] 15.7 10*3/uL High 3.6 - 10.7 10*3/uL [facility] Work Phone: () [phone] CR Chest 1 View Frontalon CR Chest 1 View Frontal Patient Name: DEONTE BLANCO Diagnostic Radiology ACCESSION EXAM DATE/TIME PROCEDURE ORDERING PROVIDER [id number] 12/21/2020 06:06 EDT CR Chest 1 View Frontal MD ROCK ZACHARY CPT code 94210 Reason For Exam (CR Chest 1 View [...] Transcribed Date and Time: 12/21/2020 8:00 Normal [facility] CR Spine Lumbosacral 2 or 3 Viewson 12-21-2020 CR Spine Lumbosacral 2 or 3 Views Patient Name: DEONTE BLANCO Diagnostic Radiology ACCESSION EXAM DATE/TIME PROCEDURE ORDERING PROVIDER [id number] 12/21/2020 06:06 EDT CR Spine Lumbosacral 2 MD ROCK ZACHARY or 3 Views CPT code 52377 Reason For Exam (CR Spine Lumbosacral 2 or 3 Views) pre-surgery films Report Examination: Lumbar spine 3 views Indication: pre-surgery films Findings: The vertebral bodies are in gross anatomic alignment. No acute fracture is demonstrated. Vkjq-ck-gbctntmu levocurvature is noted. There are at least moderate degenerative facet changes of the lower lumbar spine. There is at least moderate degenerative disc disease at T12/L1 and L1/L2. Zqvo-ru-rkgeuvhp calcification of the abdominal aorta is noted. Multiple rounded surgical coils overlie the mid abdomen most suggestive of prior herniorrhaphy. Impression: No acute osseous abnormality. Report Dictated on Final Dictated: 12/21/2020 8:31 am Dictating Physician: MD FLEMING KRIKOR Signed Date and Time: 12/21/2020 8:33 am Signed by: MD FLEMING KRIKOR Transcribed Date and Time: 12/21/2020 8:31 Normal [facility] EKG 12 Leadon 12-21-2020 Karthik, [facility] Incoming Cardiology Results From [facility] - 12/21/2020 9:40 AM EDT [facility] Test Date: 2020-12-21 Pat Name: Deonte Blanco Department: [facility] Room: [facility] Gender: F Telehealth Director: CHRISTA : 1955 Requested By: SHILPI ROCK Order Number: [id number] Reading MD: Suresh Vides Measurements Intervals [place] Rate: 67 P: -40 MI: 248 QRS: 3 QRSD: 93 T: -15 QT: 428 QTc: 452 Interpretive Statements Sinus rhythm FIRST DEGREE AV BLOCK Probable left ventricular hypertrophy Nonspecific T abnormalities, anterior leads Poor R wave progression Electronically Signed On 12-21-2020 9:39:37 EDT by Suresh GODWIN Work Phone: [facility] Test Date: 2020-12-21 Pat Name: Deonte Blanco Department: 1A6 Room: [facility] Gender: F Telehealth Director: CHRISTA : 1955 Requested By: SHILPI ROCK Order Number: [id number] Reading MD: Suresh Vides Measurements Intervals [place] Rate: 67 P: -40 MI: 248 QRS: 3 QRSD: 93 T: -15 QT: 428 QTc: 452 Interpretive Statements Sinus rhythm FIRST DEGREE AV BLOCK Probable left ventricular hypertrophy Nonspecific T abnormalities, anterior leads Poor R wave progression Electronically Signed On 12-21-2020 9:39:37 EDT by Suresh GODWIN Work Phone: Glucose,Bedsideon 12-21-2020 Glucose [Mass/Vol] 298 mg/dL High 70-100 [facility] Comment on above: Result Comment: Test performed by glucose meter. Results may be 10%-15% lower than serum/plasma values. (CLIA ID [id number]) Performed By: #### M DIFF, HEMDF #### [employer] [address] [place] [address] Glucose [Mass/Vol] 223 mg/dL High 70-100 [facility] Comment on above: Result Comment: Test performed by glucose meter. Results may be 10%-15% lower than serum/plasma values. (CLIA ID [id number]) Performed By: #### B GLU #### [employer] [address] [place] [address] Glucose [Mass/Vol] 237 mg/dL High 70-100 [facility] Comment on above: Result Comment: Test performed by glucose meter. Results may be 10%-15% lower than serum/plasma values. (CLIA ID [id number]) Performed By: #### B GLU #### [employer] [address] [place] [address] Glucose [Mass/Vol] 299 mg/dL High 70-100 [facility] Work Phone: Comment on above: Test performed by gl ucose meter. Results may be 10%-15% lower than serum/plasma values. (CLIA ID [id number]) Result Comment: Test performed by glucose meter. Results may be 10%-15% lower than serum/plasma values. (CLIA ID [id number]) Performed By: #### B GLU #### [employer] [address] [place] [address] Hemogramon 12-21-2020 Erythrocyte distribution width (RBC) [Ratio] 13.3 % Normal 11.5-14.5 [facility] Comment on above: Performed By: #### B GLU #### [employer] [address] [place] [address] Hematocrit (Bld) [Volume fraction] 45.2 % Normal 35.0-47.0 [facility] Comment on above: Performed By: #### B GLU #### [facility] [address] [place], [place] Hemoglobin (Bld) [Mass/Vol] 15.1 g/dL Normal 11.7-16.0 [facility] Comment on above: Performed By: #### B GLU #### [address] [place], [place] MCH (RBC) [Entitic mass] 30.3 pg Normal 26.0-34.0 [facility] Comment on above: Performed By: #### B GLU #### [address] [place] MCHC 33.5 % Normal 32.0-36.0 [facility] Comment on above: Performed By: #### B GLU #### [address] [place] MCV (RBC) [Entitic vol] 90.7 fL Normal 79.0-98.0 [facility] Comment on above: Performed By: #### B GLU #### [address] [place], [place] Platelet mean volume (Bld) [Entitic vol] 7.7 fL Normal 7.4-10.4 [facility] Comment on above: Performed By: #### B GLU #### [address] [place], [place] Platelets (Bld) [#/Vol] 332 10*3/uL Normal 140-440 [facility] Comment on above: Performed By: #### B GLU #### [address] [place], [place] RBC (Bld) [#/Vol] 4.99 10*6/uL Normal 3.80-5.20 [facility] Comment on above: Performed By: #### B GLU #### [address] [place], [place] WBC (Bld) [#/Vol] 15.7 10*3/uL High 3.6-10.7 [facility] Comment on above: Performed By: #### B GLU #### [address] [place], [place] Otheron 12-21-2020 Test Performed by [employer], [facility] [place] [address] [facility] Work Phone: [phone] Interpretation and review of laboratory results Abnormal [facility] Work Phone: [phone] Test Performed by [employer], [facility] [place] [address] [facility] Work Phone: [phone] POCT Glucoseon 12-21-2020 Glucose [Mass/Vol] 298 mg/dL High 70 - 100 mg/dL [facility] Work Phone: [phone] Comment on above: Test performed by gl ucose meter. Results may be 10%-15% lower than serum/plasma values. (CLIA ID [id number]) Interpretation and review of laboratory results Abnormal [facility] Work Phone: [phone] Test Performed by [employer], [facility] [place] [address] [facility] Work Phone: [phone] Glucose [Mass/Vol] 223 mg/dL High 70 - 100 mg/dL [facility] Work Phone: [phone] Comment on above: Test performed by gl ucose meter. Results may be 10%-15% lower than serum/plasma values. (CLIA ID [id number]) Interpretation and review of laboratory results Abnormal [facility] Work Phone: [phone] Test Performed by [employer], [facility] [place] [address] [facility] Work Phone: [phone] Glucose [Mass/Vol] 237 mg/dL High 70 - 100 mg/dL [facility] Work Phone: [phone] Comment on above: Test performed by gl ucose meter. Results may be 10%-15% lower than serum/plasma values. (CLIA ID [id number]) Interpretation and review of laboratory results Abnormal [facility] Work Phone: [phone] Test Performed by [employer], [facility] [place] [address] [facility] Work Phone: [phone] Prothrombin Timeon 1 INR 1.0 Normal 0.9-1.1 [employer] [employer] Comment on above: Result Comment: Dain mmended [...] Infarction Performed By: #### B GLU #### [employer] [address] [place] [address] PT Coag (PPP) [Time] 10.6 s Normal 9.0-12.0 [facility] [employer] Comment on above: Result Comment: . Performed By: #### B GLU #### [facility] [employer] [address] [place] [address] [employer]Ron 12-21-2020 INR Coag (PPP) [Relative time] 1.0 {INR} [employer] Work Phone: Comment on above: Recommended Anticoag [...] Coag (PPP) [Time] 10.6 s 9.0 - 1 2.0 s [employer] Work Phone: Comment on above: . TS GELon 12-21-2020 TS GEL ABO Group: A Rh, Gel: POS Antibody Screen Gel: NEG Normal [facility] [employer] Comment on above: Performed By: #### B GLU #### [facility] [employer] [address] [place] [address] TYPE AND SCREENon 12-21-2020 Sodium [Moles/Vol] Positive [employer] Work Phone: Sodium [Moles/Vol] A [employer] Work Phone: Sodium [Moles/Vol] Negative [facility] Work Phone: Test Performed by [facility], [address] [place] [address] [facility] Work Phone: XR CHEST 1 VWon 12-21-2020 Patient Name: DEONTE BLANCO Diagnostic Radiology ACCESSION EXAM DATE/TIME PROCEDURE ORDERING PROVIDER [id number] 12/21/2020 06:06 EDT CR Chest 1 View Frontal MD ROCK ZACHARY CPT code 63019 Reason For Exam (CR Chest 1 View [...] KRIKOR Transcribed Date and Time: 12/21/2020 8:00 [facility] Work Phone: Karthik, [facility] Incoming Radiology Results From [facility] - 12/21/2020 8:27 AM EDT Patient Name: DEONTE BLANCO Diagnostic Radiology ACCESSION EXAM DATE/TIME PROCEDURE ORDERING PROVIDER [id number] 12/21/2020 06:06 EDT CR Chest 1 View Frontal MD ROCK ZACHARY CPT code 39590 Reason For Exam (CR Chest 1 View [...] 12-21-2020 Karthik, [facility] Incoming Radiology Results From [facility] - 12/21/2020 8:34 AM EDT Patient Name: DEONTE BLANCO Diagnostic Radiology ACCESSION EXAM DATE/TIME PROCEDURE ORDERING PROVIDER [id number] 12/21/2020 06:06 EDT CR Spine Lumbosacral 2 MD SHWETA, SHILPI or 3 Views CPT code 65389 Reason For Exam (CR Spine Lumbosacral 2 or 3 Views) pre-surgery films Report Examination: Lumbar spine 3 views Indication: pre-surgery films Findings: The vertebral bodies are in gross anatomic alignment. No acute fracture is demonstrated. Ksmb-nz-zdrkqxco levocurvature is noted. There are at least moderate degenerative facet changes of the lower lumbar spine. There is at least moderate degenerative disc disease at T12/L1 and L1/L2. Pyqg-np-tiosjybc calcification of the abdominal aorta is noted. [...] Radiology ACCESSION EXAM DATE/TIME PROCEDURE ORDERING PROVIDER [id number] 12/21/2020 06:06 EDT CR Spine Lumbosacral 2 MD ROCK ZACHARY or 3 Views CPT code 40938 Reason For Exam (CR Spine Lumbosacral 2 or 3 Views) pre-surgery films Report Examination: Lumbar spine 3 views Indication: pre-surgery films Findings: The vertebral bodies are in gross anatomic alignment. No acute fracture is demonstrated. [id number] levocurvature is noted. There are at least moderate degenerative facet changes of the lower lumbar spine. There is at least moderate degenerative disc disease at T12/L1 and L1/L2. [id number] calcification of the abdominal aorta is noted. [...] Time Vital Sign Value Performing Clinician Facility 06-21-2025 13:02-0400 Body height 152.[address] Preet Farrar DO Work Phone: [facility] 06-21-2025 13:02-0400 Body mass index (BMI) [Ratio] 35.9 kg/m2 Dr. Preet Farrar DO Work Phone: [facility] 06-21-2025 13:02-0400 Body weight 83.[address] Preet Farrar DO Work Phone: [facility] 06-21-2025 13:02-0400 Diastolic blood pressure 74 mm[Hg] Dr. Preet Farrar DO Work Phone: [facility] 06-21-2025 13:02-0400 Systolic blood pressure 149 mm[Hg] Dr. Preet Farrar DO Work Phone: [facility] 05-31-2025 11:16-0400 Body mass index (BMI) [Ratio] 35.65 kg/m2 Preet Farrar DO Work Phone: [facility] 05-31-2025 11:16-0400 Body temperature 97.59 [degF] Preet Farrar DO Work Phone: [facility] 05-31-2025 11:16-0400 Body weight 83.46 kg Preet Farrar DO Work Phone: [facility] 05-31-2025 11:16-0400 Diastolic blood pressure 80 mm[Hg] Preet Farrar DO Work Phone: [facility] 05-31-2025 11:16-0400 Heart rate 84 /min Preet Farrar DO Work Phone: [facility] 05-31-2025 11:16-0400 SaO2% (BldA) [Mass fraction] 98 % Preet Farrar DO Work Phone: [facility] 05-31-2025 11:16-0400 Systolic blood pressure 136 mm[Hg] Preet Farrar DO Work Phone: [facility] 05-25-2025 23:40-0400 Body temperature 98.1 [degF] Dr. Preet Farrar DO Work Phone: [facility] 05-25-2025 23:40-0400 Diastolic blood pressure 90 mm[Hg] Dr. Preet Farrar DO Work Phone: [facility] 05-25-2025 23:40-0400 Heart rate 102 /min Dr. Preet Farrar DO Work Phone: [facility] 05-25-2025 23:40-0400 Respiratory rate 18 /min Dr. Preet Farrar DO Work Phone: [facility] 05-25-2025 23:40-0400 SaO2% (BldA) [Mass fraction] 98 % Dr. Preet Farrar DO Work Phone: [facility] 05-25-2025 23:40-0400 Systolic blood pressure 148 mm[Hg] Dr. Preet Farrar DO Work Phone: [facility] 05-25-2025 21:39-0400 Body height 152.[address] Preet Farrar DO Work Phone: [facility] 05-25-2025 21:39-0400 Body mass index (BMI) [Ratio] 43.3 kg/m2 Dr. Preet Farrar DO Work Phone: [facility] 05-25-2025 21:39-0400 Body weight 100.[address] Preet Farrar DO Work Phone: [facility] 04-18-2025 08:27-0400 Body mass index (BMI) [Ratio] 35.65 kg/m2 Liliana Bennett APRN.DIRECTOR STATISTICAL PROGRAMMING Work Phone: [facility] 04-18-2025 08:27-0400 Body weight 83.46 kg Liliana Bennett APRN.DIRECTOR STATISTICAL PROGRAMMING Work Phone: [facility] 04-18-2025 08:27-0400 Diastolic blood pressure 70 mm[Hg] Liliana Bennett APRN.DIRECTOR STATISTICAL PROGRAMMING Work Phone: [facility] 04-18-2025 08:27-0400 Heart rate 76 /min Liliana Bennett APRN.DIRECTOR STATISTICAL PROGRAMMING Work Phone: [facility] 04-18-2025 08:27-0400 SaO2% (BldA) [Mass fraction] 96 % Liliana Bennett APRN.DIRECTOR STATISTICAL PROGRAMMING Work Phone: [facility] 04-18-2025 08:27-0400 Systolic blood pressure 120 mm[Hg] Liliana Bennett APRN.DIRECTOR STATISTICAL PROGRAMMING Work Phone: [facility] 04-15-2025 19:29-0400 Body temperature 98.6 [degF] Dr. Preet Farrar DO Work Phone: [facility] 04-15-2025 19:29-0400 Diastolic blood pressure 79 mm[Hg] Dr. Preet Farrar DO Work Phone: [facility] 04-15-2025 19:29-0400 Heart rate 91 /min Dr. Preet Farrar DO Work Phone: [facility] 04-15-2025 19:29-0400 Respiratory rate 16 /min Dr. Preet Farrar DO Work Phone: 1(234)505-905608 [place] [address] 04-15-2025 19:29-0400 SaO2% (BldA) [Mass fraction] 97 % Dr. Preet Farrar DO Work Phone: 4(995)892-744974 [place] [address] 04-15-2025 19:29-0400 Systolic blood pressure 103 mm[Hg] Dr. Preet Farrar DO Work Phone: 4(011)364-339008 [place] [address] 04-15-2025 13:11-0400 Body height 152.[address] Preet Farrar DO Work Phone: 1(294)873-013308 [place] [address] 04-15-2025 13:11-0400 Body mass index (BMI) [Ratio] 35.2 kg/m2 Dr. Preet Farrar DO Work Phone: 9(451)959-072674 [place] [address] 04-15-2025 13:11-0400 Body weight 81.[address] Preet Farrar DO Work Phone: 3(033)486-231174 [place] [address] 03-22-2025 13:46-0400 Body mass index (BMI) [Ratio] 36 kg/m2 Liliana Bennett APRN.DIRECTOR STATISTICAL PROGRAMMING Work Phone: [facility] 03-22-2025 13:46-0400 Body weight 84.28 kg Liliana Bennett CONTINUOUS IMPROVEMENT SPECIALIST.DIRECTOR STATISTICAL PROGRAMMING Work Phone: [facility] 03-22-2025 13:46-0400 Diastolic blood pressure 70 mm[Hg] Liliana Bennett APRN.DIRECTOR STATISTICAL PROGRAMMING Work Phone: [facility] 03-22-2025 13:46-0400 Heart rate 78 /min Liliana Bennett APRN.DIRECTOR STATISTICAL PROGRAMMING Work Phone: [facility] 03-22-2025 13:46-0400 SaO2% (BldA) [Mass fraction] 98 % Liliana Nuñezo CONTINUOUS IMPROVEMENT SPECIALIST.DIRECTOR STATISTICAL PROGRAMMING Work Phone: [facility] 03-22-2025 13:46-0400 Systolic blood pressure 140 mm[Hg] Liliana Nuñezo CONTINUOUS IMPROVEMENT SPECIALIST.DIRECTOR STATISTICAL PROGRAMMING Work Phone: [facility] 02-09-2025 10:03-0400 Body mass index (BMI) [Ratio] 36.39 kg/m2 Bean Isaac MD Work Phone: [facility] 02-09-2025 10:03-0400 Body weight 85.19 kg Bean Isaac MD Work Phone: [facility] 02-09-2025 10:03-0400 Diastolic blood pressure 78 mm[Hg] Bean Isaac MD Work Phone: [facility] 02-09-2025 10:03-0400 Heart rate 84 /min Bean Isaac MD Work Phone: [facility] 02-09-2025 10:03-0400 SaO2% (BldA) [Mass fraction] 95 % Bean Isaac MD Work Phone: [facility] 02-09-2025 10:03-0400 Systolic blood pressure 122 mm[Hg] Bean Isaac MD Work Phone: [facility] 02-06-2025 10:53-0400 Body height 152.[address] Preet Farrar DO Work Phone: [facility] 02-06-2025 10:53-0400 Body mass index (BMI) [Ratio] 36.6 kg/m2 Dr. Preet Farrar DO Work Phone: [facility] 02-06-2025 10:53-0400 Body weight 84.[address] Preet Farrar DO Work Phone: [facility] 02-06-2025 10:53-0400 Diastolic blood pressure 60 mm[Hg] Dr. Preet Farrar DO Work Phone: 3(735)621-608908 [place] [address] 02-06-2025 10:53-0400 Systolic blood pressure 136 mm[Hg] Dr. Preet Farrar DO Work Phone: 6(450)812-042974 [place] [address] 01-26-2025 08:18-0400 Body mass index (BMI) [Ratio] 36.1 kg/m2 Dr. Preet Farrar DO Work Phone: 1(580)287-695274 [place] [address] 01-26-2025 08:18-0400 Body weight 83.[address] Preet Farrar DO Work Phone: 8(702)589-989474 [place] [address] 01-26-2025 08:18-0400 Diastolic blood pressure 82 mm[Hg] Dr. Preet Farrar DO Work Phone: 1(394)372-157174 [place] [address] 01-26-2025 08:18-0400 Heart rate 82 /min Dr. Preet Farrar DO Work Phone: 9(658)010-521074 [place] [address] 01-26-2025 08:18-0400 Respiratory rate 18 /min Dr. Preet Farrar DO Work Phone: 8(008)373-628074 [place] [address] 01-26-2025 08:18-0400 Systolic blood pressure 144 mm[Hg] Dr. Preet Farrar DO Work Phone: 8(957)779-222774 [place] [address] 01-09-2025 11:11-0400 Body mass index (BMI) [Ratio] 36.1 kg/m2 Dr. Preet Farrar DO Work Phone: 2(388)832-425574 [place] [address] 01-09-2025 11:11-0400 Body weight 84.[address] Preet Farrar DO Work Phone: 0(373)858-519574 [place] [address] 01-09-2025 11:11-0400 Diastolic blood pressure 87 mm[Hg] Dr. Preet Farrar DO Work Phone: 5(568)798-235674 [place] [address] 01-09-2025 11:11-0400 Systolic blood pressure 145 mm[Hg] Dr. Preet Farrar DO Work Phone: 9(791)060-952574 [place] [address] 12-28-2024 14:12-0400 Body temperature 98.5 [degF] Dr. Preet Farrar DO Work Phone: 6(777)678-632008 [place] [address] 12-28-2024 14:12-0400 Diastolic blood pressure 68 mm[Hg] Dr. Preet Farrar DO Work Phone: 3(752)406-544108 [place] [address] 12-28-2024 14:12-0400 Heart rate 66 /min Dr. Preet Farrar DO Work Phone: 8(377)335-105274 [place] [address] 12-28-2024 14:12-0400 Respiratory rate 16 /min Dr. Preet Farrar DO Work Phone: 1(198)051-154874 [place] [address] 12-28-2024 14:12-0400 SaO2% (BldA) [Mass fraction] 93 % Dr. Preet Farrar DO Work Phone: 9(479)377-853874 [place] [address] 12-28-2024 14:12-0400 Systolic blood pressure 159 mm[Hg] Dr. Preet Farrar DO Work Phone: 6(940)833-118374 [place] [address] 12-27-2024 20:10-0400 Inhaled oxygen concentration 99 % Dr. Preet Farrar DO Work Phone: 0(217)919-716974 [place] [address] 12-27-2024 20:10-0400 Inhaled oxygen flow rate 2 L/min Dr. Preet Farrar DO Work Phone: 9(090)101-731374 [place] [address] 12-27-2024 18:19-0400 Body height 152.[address] Preet Farrar DO Work Phone: 3(394)967-501474 [place] [address] 12-27-2024 18:19-0400 Body mass index (BMI) [Ratio] 36.4 kg/m2 Dr. Preet Farrar DO Work Phone: 0(604)844-966674 [place] [address] 12-27-2024 18:19-0400 Body weight 84.[address] Preet Farrar DO Work Phone: 8(586)683-206774 [place] [address] 12-14-2024 11:02-0400 Body height 153 cm Preet Farrar DO Work Phone: 6(068)556-795657 [place] [address] 12-14-2024 11:02-0400 Body mass index (BMI) [Ratio] 36.04 kg/m2 Preet Farrar DO Work Phone: [facility] 12-14-2024 11:02-0400 Body temperature 97 [degF] Preet Farrar DO Work Phone: [facility] 12-14-2024 11:02-0400 Body weight 84.37 kg Preet Farrar DO Work Phone: [facility] 12-14-2024 11:02-0400 Diastolic blood pressure 70 mm[Hg] Preet Farrar DO Work Phone: [facility] 12-14-2024 11:02-0400 Heart rate 64 /min Preet Farrar DO Work Phone: [facility] 12-14-2024 11:02-0400 Respiratory rate 16 /min Preet Farrar DO Work Phone: [facility] 12-14-2024 11:02-0400 Systolic blood pressure 136 mm[Hg] Preet Farrar DO Work Phone: [facility] 12-12-2024 10:53-0400 Body mass index (BMI) [Ratio] 36.7 kg/m2 Dr. Preet Farrar DO Work Phone: [facility] 12-12-2024 10:53-0400 Body weight 85.[address] Preet Farrar DO Work Phone: [facility] 12-12-2024 10:53-0400 Diastolic blood pressure 59 mm[Hg] Dr. Preet Farrar DO Work Phone: [facility] 12-12-2024 10:53-0400 Systolic blood pressure 152 mm[Hg] Dr. Preet Farrar DO Work Phone: [facility] 11-11-2024 09:46-0500 Body mass index (BMI) [Ratio] 33.98 kg/m2 Bean Isaac MD Work Phone: [facility] 11-11-2024 09:46-0500 Body temperature 97.11 [degF] Bean Isaac MD Work Phone: [facility] 11-11-2024 09:46-0500 Body weight 81.65 kg Bean Isaac MD Work Phone: [facility] 11-11-2024 09:46-0500 Diastolic blood pressure 74 mm[Hg] Bean Isaac MD Work Phone: [facility] 11-11-2024 09:46-0500 Heart rate 89 /min Bean Isaac MD Work Phone: [facility] 11-11-2024 09:46-0500 SaO2% (BldA) [Mass fraction] 97 % Bean Isaac MD Work Phone: [facility] 11-11-2024 09:46-0500 Systolic blood pressure 124 mm[Hg] Bean Isaac MD Work Phone: [facility] 10-07-2024 10:58-0500 Body height 155 cm Preet Farrar DO Work Phone: [facility] 10-07-2024 10:58-0500 Body mass index (BMI) [Ratio] 34.38 kg/m2 Preet Farrar DO Work Phone: [facility] 10-07-2024 10:58-0500 Body temperature 97 [degF] Preet Farrar DO Work Phone: [facility] 10-07-2024 10:58-0500 Body weight 82.6 kg Preet Farrar DO Work Phone: [facility] 10-07-2024 10:58-0500 Diastolic blood pressure 60 mm[Hg] Preet Farrar DO Work Phone: [facility] 10-07-2024 10:58-0500 Heart rate 64 /min Preet Farrar DO Work Phone: [facility] 10-07-2024 10:58-0500 Respiratory rate 20 /min Preet Farrar DO Work Phone: [facility] 10-07-2024 10:58-0500 Systolic blood pressure 116 mm[Hg] Preet Farrar DO Work Phone: [facility] 09-13-2024 13:58-0500 Body mass index (BMI) [Ratio] 35.3 kg/m2 Dr. Preet Farrar DO Work Phone: [facility] 09-13-2024 13:58-0500 Body weight 82.[address] Preet Farrar DO Work Phone: [facility] 09-13-2024 13:58-0500 Diastolic blood pressure 69 mm[Hg] Dr. Preet Farrar DO Work Phone: 6(095)989-343208 [place] [address] 09-13-2024 13:58-0500 Heart rate 69 /min Dr. Preet Farrar DO Work Phone: [facility] 09-13-2024 13:58-0500 Respiratory rate 18 /min Dr. Preet Farrar DO Work Phone: 7(978)402-364708 [place] [address] 09-13-2024 13:58-0500 SaO2% (BldA) [Mass fraction] 96 % Dr. Preet Farrar DO Work Phone: 9(664)533-503108 [place] [address] 09-13-2024 13:58-0500 Systolic blood pressure 153 mm[Hg] Dr. Preet Farrar DO Work Phone: [facility] 08-11-2024 09:47-0500 Body mass index (BMI) [Ratio] 35.58 kg/m2 Bean Isaac MD Work Phone: [facility] 08-11-2024 09:47-0500 Body temperature 98.2 [degF] Bean Isaac MD Work Phone: [facility] 08-11-2024 09:47-0500 Body weight 82.64 kg Bean Isaac MD Work Phone: [facility] 08-11-2024 09:47-0500 Diastolic blood pressure 67 mm[Hg] Bean Isaac MD Work Phone: [facility] 08-11-2024 09:47-0500 Heart rate 69 /min Bean Isaac MD Work Phone: [facility] 08-11-2024 09:47-0500 SaO2% (BldA) [Mass fraction] 97 % Bean Isaac MD Work Phone: [facility] 08-11-2024 09:47-0500 Systolic blood pressure 150 mm[Hg] Bean Isaac MD Work Phone: [facility] 06-14-2024 14:18-0400 Body mass index (BMI) [Ratio] 33.58 kg/m2 Preet Farrar DO Work Phone: [facility] 06-14-2024 14:18-0400 Body temperature 98.01 [degF] Preet Farrar DO Work Phone: [facility] 06-14-2024 14:18-0400 Body weight 78 kg Preet Farrar DO Work Phone: [facility] 06-14-2024 14:18-0400 Diastolic blood pressure 70 mm[Hg] Preet Farrar DO Work Phone: [facility] 06-14-2024 14:18-0400 Heart rate 76 /min Preet Farrar DO Work Phone: [facility] 06-14-2024 14:18-0400 Respiratory rate 16 /min Preet Farrar DO Work Phone: [facility] 06-14-2024 14:18-0400 Systolic blood pressure 136 mm[Hg] Preet Farrar DO Work Phone: [facility] 05-25-2024 14:32-0400 Body mass index (BMI) [Ratio] 32.89 kg/m2 Catalina Young APRN.DIRECTOR STATISTICAL PROGRAMMING Work Phone: [facility] 05-25-2024 14:32-0400 Body weight 76.4 kg Catalina Young APRN.DIRECTOR STATISTICAL PROGRAMMING Work Phone: [facility] 05-25-2024 14:32-0400 Diastolic blood pressure 72 mm[Hg] Catalina Podlogar CONTINUOUS IMPROVEMENT SPECIALIST.DIRECTOR STATISTICAL PROGRAMMING Work Phone: [facility] 05-25-2024 14:32-0400 Heart rate 80 /min Catalina Podlogar CONTINUOUS IMPROVEMENT SPECIALIST.DIRECTOR STATISTICAL PROGRAMMING Work Phone: [facility] 05-25-2024 14:32-0400 Respiratory rate 18 /min Catalina Podlogar CONTINUOUS IMPROVEMENT SPECIALIST.DIRECTOR STATISTICAL PROGRAMMING Work Phone: [facility] 05-25-2024 14:32-0400 SaO2% (BldA) [Mass fraction] 93 % Catalina Podlogar CONTINUOUS IMPROVEMENT SPECIALIST.DIRECTOR STATISTICAL PROGRAMMING Work Phone: [facility] 05-25-2024 14:32-0400 Systolic blood pressure 106 mm[Hg] Catalina Podlogar CONTINUOUS IMPROVEMENT SPECIALIST.DIRECTOR STATISTICAL PROGRAMMING Work Phone: [facility] 05-10-2024 13:29-0400 Body height 152.4 cm Bean Isaac MD Work Phone: [facility] 05-10-2024 13:29-0400 Body mass index (BMI) [Ratio] 33.55 kg/m2 Bean Isaac MD Work Phone: [facility] 05-10-2024 13:29-0400 Body weight 77.93 kg Bean Isaac MD Work Phone: [facility] 05-10-2024 13:29-0400 Diastolic blood pressure 78 mm[Hg] Bean Isaac MD Work Phone: [facility] 05-10-2024 13:29-0400 Heart rate 76 /min Bean Isaac MD Work Phone: [facility] 05-10-2024 13:29-0400 Respiratory rate 18 /min Bean Isaac MD Work Phone: [facility] 05-10-2024 13:29-0400 SaO2% (BldA) [Mass fraction] 97 % Bean Isaac MD Work Phone: [facility] 05-10-2024 13:29-0400 Systolic blood pressure 138 mm[Hg] Bean Isaac MD Work Phone: [facility] 03-21-2024 10:23-0400 Body mass index (BMI) [Ratio] 31.83 kg/m2 Preet Farrar DO Work Phone: [facility] 03-21-2024 10:23-0400 Body temperature 96.69 [degF] Preet Farrar DO Work Phone: [facility] 03-21-2024 10:23-0400 Body weight 73.94 kg Preet Farrar DO Work Phone: [facility] 03-21-2024 10:23-0400 Diastolic blood pressure 80 mm[Hg] Preet Farrar DO Work Phone: [facility] 03-21-2024 10:23-0400 Heart rate 64 /min Preet Farrar DO Work Phone: [facility] 03-21-2024 10:23-0400 Respiratory rate 16 /min Preet Farrar DO Work Phone: [facility] 03-21-2024 10:23-0400 Systolic blood pressure 136 mm[Hg] Preet Farrar DO Work Phone: [facility] 01-27-2024 10:55-0400 Body mass index (BMI) [Ratio] 32.15 kg/m2 Jacqueline Candelario CONTINUOUS IMPROVEMENT SPECIALIST.DIRECTOR STATISTICAL PROGRAMMING Work Phone: [facility] 01-27-2024 10:55-0400 Body weight 74.67 kg Jacqueline Candelario CONTINUOUS IMPROVEMENT SPECIALIST.DIRECTOR STATISTICAL PROGRAMMING Work Phone: [facility] 01-27-2024 10:55-0400 Diastolic blood pressure 68 mm[Hg] Jacqueline Candelario CONTINUOUS IMPROVEMENT SPECIALIST.DIRECTOR STATISTICAL PROGRAMMING Work Phone: [facility] 01-27-2024 10:55-0400 Heart rate 64 /min Jacqueline Candelario CONTINUOUS IMPROVEMENT SPECIALIST.DIRECTOR STATISTICAL PROGRAMMING Work Phone: [facility] 01-27-2024 10:55-0400 Respiratory rate 16 /min Jacqueline Candelario CONTINUOUS IMPROVEMENT SPECIALIST.DIRECTOR STATISTICAL PROGRAMMING Work Phone: [facility] 01-27-2024 10:55-0400 Systolic blood pressure 124 mm[Hg] Jacqueline Candelario CONTINUOUS IMPROVEMENT SPECIALIST.DIRECTOR STATISTICAL PROGRAMMING Work Phone: [facility] 01-06-2024 11:06-0400 Body weight 74.39 kg Jacqueline Candelario CONTINUOUS IMPROVEMENT SPECIALIST.DIRECTOR STATISTICAL PROGRAMMING Work Phone: [facility] 01-06-2024 11:06-0400 Diastolic blood pressure 64 mm[Hg] Jacqueline Candelario CONTINUOUS IMPROVEMENT SPECIALIST.DIRECTOR STATISTICAL PROGRAMMING Work Phone: [facility] 01-06-2024 11:06-0400 Heart rate 62 /min Jacqueline Candelario CONTINUOUS IMPROVEMENT SPECIALIST.DIRECTOR STATISTICAL PROGRAMMING Work Phone: [facility] 01-06-2024 11:06-0400 Respiratory rate 16 /min Jacqueline Candelario CONTINUOUS IMPROVEMENT SPECIALIST.DIRECTOR STATISTICAL PROGRAMMING Work Phone: [facility] 01-06-2024 11:06-0400 Systolic blood pressure 130 mm[Hg] Jacqueline Candelario CONTINUOUS IMPROVEMENT SPECIALIST.DIRECTOR STATISTICAL PROGRAMMING Work Phone: [facility] 01-02-2024 12:34-0400 Body temperature 97.39 [degF] Jemima Iyer CONTINUOUS IMPROVEMENT SPECIALIST.DIRECTOR STATISTICAL PROGRAMMING Work Phone: [facility] 01-02-2024 12:34-0400 Body weight 74.1 kg Jemima Iyer CONTINUOUS IMPROVEMENT SPECIALIST.DIRECTOR STATISTICAL PROGRAMMING Work Phone: [facility] 01-02-2024 12:34-0400 Diastolic blood pressure 82 mm[Hg] Jemima Iyer CONTINUOUS IMPROVEMENT SPECIALIST.DIRECTOR STATISTICAL PROGRAMMING Work Phone: [facility] 01-02-2024 12:34-0400 Heart rate 80 /min Jemima Iyer CONTINUOUS IMPROVEMENT SPECIALIST.DIRECTOR STATISTICAL PROGRAMMING Work Phone: [facility] 01-02-2024 12:34-0400 Respiratory rate 16 /min Jemima Iyer CONTINUOUS IMPROVEMENT SPECIALIST.DIRECTOR STATISTICAL PROGRAMMING Work Phone: [facility] 01-02-2024 12:34-0400 SaO2% (BldA) [Mass fraction] 98 % Jemima Iyer CONTINUOUS IMPROVEMENT SPECIALIST.DIRECTOR STATISTICAL PROGRAMMING Work Phone: [facility] 01-02-2024 12:34-0400 Systolic blood pressure 132 mm[Hg] Jemima Iyer CONTINUOUS IMPROVEMENT SPECIALIST.DIRECTOR STATISTICAL PROGRAMMING Work Phone: [facility] 12-09-2023 17:34-0400 Body temperature 97.39 [degF] Preet Farrar DO Work Phone: [facility] 12-09-2023 17:34-0400 Body weight 74.39 kg Preet Farrar DO Work Phone: [facility] 12-09-2023 17:34-0400 Diastolic blood pressure 80 mm[Hg] Preet Farrar DO Work Phone: [facility] 12-09-2023 17:34-0400 Heart rate 80 /min Preet Farrar DO Work Phone: [facility] 12-09-2023 17:34-0400 Respiratory rate 12 /min Preet Farrar DO Work Phone: [facility] 12-09-2023 17:34-0400 Systolic blood pressure 130 mm[Hg] Preet Farrar DO Work Phone: [facility] 11-25-2023 02:49-0500 Blood Pressure Cuff Size ELOISA LEVIN MD [facility] 11-25-2023 02:49-0500 Blood Pressure Location ELOISA LEVIN MD [facility] 11-25-2023 02:49-0500 Blood Pressure Method ELOISA LEVIN MD [facility] 11-25-2023 02:49-0500 Diastolic Blood Pressure Non-Invasive 80 mm[Hg] ELOISA LEVIN MD [facility] 11-25-2023 02:49-0500 Systolic Blood Pressure Non-Invasive 164 mm[Hg] ELOISA LEVIN MD [facility] 11-25-2023 00:35-0500 Diastolic Blood Pressure Non-Invasive 83 mm[Hg] ELOISA LEVIN MD [facility] 11-25-2023 00:35-0500 Heart rate 79 /min ELOISA LEVIN MD [facility] 11-25-2023 00:35-0500 Respiratory rate 18 /min ELOISA LEVIN MD [facility] 11-25-2023 00:35-0500 Systolic Blood Pressure Non-Invasive 177 mm[Hg] ELOISA LEVIN MD [facility] 11-24-2023 22:22-0500 Diastolic Blood Pressure Non-Invasive 81 mm[Hg] ELOISA LEVIN MD [facility] 11-24-2023 22:22-0500 Heart rate 72 /min ELOISA LEVIN MD [facility] 11-24-2023 22:22-0500 Respiratory rate 20 /min ELOISA LEVIN MD [facility] 11-24-2023 22:22-0500 Systolic Blood Pressure Non-Invasive 147 mm[Hg] ELOISA LEVIN MD [facility] 11-24-2023 18:48-0500 Body temperature 98.06 [degF] ELOISA LEVIN MD [facility] 11-24-2023 18:48-0500 Body weight 76.7 kg ELOISA LEVIN MD [facility] 11-24-2023 18:48-0500 Heart rate 80 /min ELOISA LEVIN MD [facility] 11-24-2023 18:48-0500 Respiratory rate 20 /min ELOISA LEVIN MD [facility] 11-19-2023 09:24-0500 Body weight 76.2 kg Jacqueline Candelario APRN.CNP Work Phone: [facility] 11-19-2023 09:24-0500 Diastolic blood pressure 60 mm[Hg] Jacqueline Candelario CONTINUOUS IMPROVEMENT SPECIALIST.DIRECTOR STATISTICAL PROGRAMMING Work Phone: [facility] 11-19-2023 09:24-0500 Heart rate 64 /min Jacqueline Candelario CONTINUOUS IMPROVEMENT SPECIALIST.DIRECTOR STATISTICAL PROGRAMMING Work Phone: [facility] 11-19-2023 09:24-0500 Respiratory rate 12 /min Jacqueline Candelario CONTINUOUS IMPROVEMENT SPECIALIST.DIRECTOR STATISTICAL PROGRAMMING Work Phone: [facility] 11-19-2023 09:24-0500 Systolic blood pressure 100 mm[Hg] Jacuqeline Candelario CONTINUOUS IMPROVEMENT SPECIALIST.DIRECTOR STATISTICAL PROGRAMMING Work Phone: [facility] 11-13-2023 08:57-0500 Body weight 76.2 kg Jacqueline Candelario CONTINUOUS IMPROVEMENT SPECIALIST.DIRECTOR STATISTICAL PROGRAMMING Work Phone: [facility] 11-13-2023 08:57-0500 Diastolic blood pressure 70 mm[Hg] Jacqueline Candelario CONTINUOUS IMPROVEMENT SPECIALIST.DIRECTOR STATISTICAL PROGRAMMING Work Phone: [facility] 11-13-2023 08:57-0500 Heart rate 64 /min Jacqueline Candelario CONTINUOUS IMPROVEMENT SPECIALIST.DIRECTOR STATISTICAL PROGRAMMING Work Phone: [facility] 11-13-2023 08:57-0500 Respiratory rate 16 /min Jacqueline Candelario CONTINUOUS IMPROVEMENT SPECIALIST.DIRECTOR STATISTICAL PROGRAMMING Work Phone: [facility] 11-13-2023 08:57-0500 Systolic blood pressure 160 mm[Hg] Jacqueline Candelario CONTINUOUS IMPROVEMENT SPECIALIST.DIRECTOR STATISTICAL PROGRAMMING Work Phone: [facility] 10-29-2023 09:13-0500 Body weight 75.75 kg Jacqueline Candelario CONTINUOUS IMPROVEMENT SPECIALIST.DIRECTOR STATISTICAL PROGRAMMING Work Phone: [facility] 10-29-2023 09:13-0500 Diastolic blood pressure 62 mm[Hg] Jacqueline Candelario CONTINUOUS IMPROVEMENT SPECIALIST.DIRECTOR STATISTICAL PROGRAMMING Work Phone: [facility] 10-29-2023 09:13-0500 Heart rate 64 /min Jacqueline Candelario CONTINUOUS IMPROVEMENT SPECIALIST.DIRECTOR STATISTICAL PROGRAMMING Work Phone: [facility] 10-29-2023 09:13-0500 Respiratory rate 14 /min Jacqueline Candelario CONTINUOUS IMPROVEMENT SPECIALIST.DIRECTOR STATISTICAL PROGRAMMING Work Phone: [facility] 10-29-2023 09:13-0500 Systolic blood pressure 150 mm[Hg] Jacqueline Candelario CONTINUOUS IMPROVEMENT SPECIALIST.DIRECTOR STATISTICAL PROGRAMMING Work Phone: [facility] 07-27-2023 10:58-0400 Body height 152.[address] Preet Farrar Work Phone: [facility] 07-27-2023 10:58-0400 Body temperature 98 [degF] Dr. Preet Farrar Work Phone: 1(784)207-595708 [place] [address] 07-27-2023 10:58-0400 Diastolic blood pressure 80 mm[Hg] Dr. Preet Farrar Work Phone: 2(970)204-306708 [place] [address] 07-27-2023 10:58-0400 Heart rate 88 /min Dr. Preet Farrar Work Phone: [facility] 07-27-2023 10:58-0400 Respiratory rate 15 /min Dr. Preet Farrar Work Phone: [facility] 07-27-2023 10:58-0400 SaO2% (BldA) [Mass fraction] 98 % Dr. Preet Farrar Work Phone: [facility] 07-27-2023 10:58-0400 Systolic blood pressure 129 mm[Hg] Dr. Preet Farrar Work Phone: [facility] 07-15-2023 10:01-0400 Body weight 72.85 kg Kathryn Valeroman CONTINUOUS IMPROVEMENT SPECIALIST.DIRECTOR STATISTICAL PROGRAMMING Work Phone: [facility] 07-15-2023 10:01-0400 Diastolic blood pressure 74 mm[Hg] Kathryn Martir CONTINUOUS IMPROVEMENT SPECIALIST.DIRECTOR STATISTICAL PROGRAMMING Work Phone: [facility] 07-15-2023 10:01-0400 Heart rate 84 /min Kathryn Martir CONTINUOUS IMPROVEMENT SPECIALIST.DIRECTOR STATISTICAL PROGRAMMING Work Phone: [facility] 07-15-2023 10:01-0400 Respiratory rate 16 /min Kathryn Rivero APRN.DIRECTOR STATISTICAL PROGRAMMING Work Phone: [facility] 07-15-2023 10:01-0400 SaO2% (BldA) [Mass fraction] 98 % Kathryn Rivero CONTINUOUS IMPROVEMENT SPECIALIST.DIRECTOR STATISTICAL PROGRAMMING Work Phone: [facility] 07-15-2023 10:01-0400 Systolic blood pressure 126 mm[Hg] Kathryn Rivero CONTINUOUS IMPROVEMENT SPECIALIST.DIRECTOR STATISTICAL PROGRAMMING Work Phone: [facility] 07-03-2023 08:40-0400 Body temperature 97.9 [degF] Dr. Preet Farrar Work Phone: 9(646)221-694308 [place] [address] 07-03-2023 08:40-0400 Diastolic blood pressure 55 mm[Hg] Dr. Preet Farrar Work Phone: 7(089)227-10[address] [place] [address] 07-03-2023 08:40-0400 Heart rate 69 /min Dr. Preet Farrar Work Phone: 3(941)187-373008 [place] [address] 07-03-2023 08:40-0400 Respiratory rate 16 /min Dr. Preet Farrar Work Phone: 2(363)631-287074 [place] [address] 07-03-2023 08:40-0400 SaO2% (BldA) [Mass fraction] 97 % Dr. Preet Farrar Work Phone: 5(803)431-618508 [place] [address] 07-03-2023 08:40-0400 Systolic blood pressure 139 mm[Hg] Dr. Preet Farrar Work Phone: 6(996)402-429508 [place] [address] 07-03-2023 05:54-0400 Body mass index (BMI) [Ratio] 30.7 kg/m2 Dr. Preet Farrar Work Phone: 4(151)904-925908 [place] [address] 07-03-2023 05:54-0400 Body weight 71.[address] Preet Farrar Work Phone: [facility] 06-26-2023 09:04-0400 Body weight 71.31 kg Jacqueline Candelario CONTINUOUS IMPROVEMENT SPECIALIST.DIRECTOR STATISTICAL PROGRAMMING Work Phone: [facility] 06-26-2023 09:04-0400 Diastolic blood pressure 60 mm[Hg] Jacqueline Candelario CONTINUOUS IMPROVEMENT SPECIALIST.DIRECTOR STATISTICAL PROGRAMMING Work Phone: [facility] 06-26-2023 09:04-0400 Heart rate 100 /min Jacqueline Candelario CONTINUOUS IMPROVEMENT SPECIALIST.DIRECTOR STATISTICAL PROGRAMMING Work Phone: [facility] 06-26-2023 09:04-0400 Respiratory rate 14 /min Jacqueline Candelario CONTINUOUS IMPROVEMENT SPECIALIST.DIRECTOR STATISTICAL PROGRAMMING Work Phone: [facility] 06-26-2023 09:04-0400 Systolic blood pressure 122 mm[Hg] Jacqueline Candelario CONTINUOUS IMPROVEMENT SPECIALIST.DIRECTOR STATISTICAL PROGRAMMING Work Phone: [facility] 06-19-2023 10:41-0400 Body weight 74.39 kg Kathryn Martir CONTINUOUS IMPROVEMENT SPECIALIST.DIRECTOR STATISTICAL PROGRAMMING Work Phone: [facility] 06-19-2023 10:41-0400 Diastolic blood pressure 68 mm[Hg] Kathryn Martir CONTINUOUS IMPROVEMENT SPECIALIST.DIRECTOR STATISTICAL PROGRAMMING Work Phone: [facility] 06-19-2023 10:41-0400 Heart rate 73 /min Kathryn Martir CONTINUOUS IMPROVEMENT SPECIALIST.DIRECTOR STATISTICAL PROGRAMMING Work Phone: [facility] 06-19-2023 10:41-0400 Respiratory rate 16 /min Kathryn Martir CONTINUOUS IMPROVEMENT SPECIALIST.DIRECTOR STATISTICAL PROGRAMMING Work Phone: [facility] 06-19-2023 10:41-0400 SaO2% (BldA) [Mass fraction] 97 % Kathryn Martir CONTINUOUS IMPROVEMENT SPECIALIST.DIRECTOR STATISTICAL PROGRAMMING Work Phone: [facility] 06-19-2023 10:41-0400 Systolic blood pressure 118 mm[Hg] Kathryn Martir CONTINUOUS IMPROVEMENT SPECIALIST.DIRECTOR STATISTICAL PROGRAMMING Work Phone: [facility] 04-30-2023 08:37-0400 Body weight 75.03 kg Jacqueline Candelario CONTINUOUS IMPROVEMENT SPECIALIST.DIRECTOR STATISTICAL PROGRAMMING Work Phone: [facility] 04-30-2023 08:37-0400 Diastolic blood pressure 82 mm[Hg] Jacqueline Candelario CONTINUOUS IMPROVEMENT SPECIALIST.DIRECTOR STATISTICAL PROGRAMMING Work Phone: [facility] 04-30-2023 08:37-0400 Heart rate 60 /min Jacqueline Candelario CONTINUOUS IMPROVEMENT SPECIALIST.DIRECTOR STATISTICAL PROGRAMMING Work Phone: [facility] 04-30-2023 08:37-0400 Respiratory rate 16 /min Jacqueline Candelario CONTINUOUS IMPROVEMENT SPECIALIST.DIRECTOR STATISTICAL PROGRAMMING Work Phone: [facility] 04-30-2023 08:37-0400 Systolic blood pressure 132 mm[Hg] Jacqueline Candelario CONTINUOUS IMPROVEMENT SPECIALIST.DIRECTOR STATISTICAL PROGRAMMING Work Phone: [facility] 03-18-2023 10:27-0400 Body temperature 97.5 [degF] Preet Farrar DO Work Phone: [facility] 03-18-2023 10:27-0400 Body weight 76.66 kg Preet Farrar DO Work Phone: [facility] 03-18-2023 10:27-0400 Diastolic blood pressure 80 mm[Hg] Preet Farrar DO Work Phone: [facility] 03-18-2023 10:27-0400 Heart rate 80 /min Preet Farrar DO Work Phone: [facility] 03-18-2023 10:27-0400 Respiratory rate 16 /min Preet Farrar DO Work Phone: [facility] 03-18-2023 10:27-0400 Systolic blood pressure 130 mm[Hg] Preet Farrar DO Work Phone: [facility] 03-16-2023 09:56-0400 Body height 152.[address] Preet Farrar Work Phone: [facility] 03-16-2023 09:56-0400 Body mass index (BMI) [Ratio] 32.9 kg/m2 Dr. Preet Farrar Work Phone: [facility] 03-16-2023 09:56-0400 Body temperature 98.2 [degF] Dr. Preet Farrar Work Phone: [facility] 03-16-2023 09:56-0400 Body weight 76.[address] Preet Farrar Work Phone: [facility] 03-16-2023 09:56-0400 Diastolic blood pressure 70 mm[Hg] Dr. Preet Farrar Work Phone: [facility] 03-16-2023 09:56-0400 Heart rate 78 /min Dr. Prete Farrar Work Phone: [facility] 03-16-2023 09:56-0400 Respiratory rate 17 /min Dr. Preet Farrar Work Phone: [facility] 03-16-2023 09:56-0400 SaO2% (BldA) [Mass fraction] 96 % Dr. Preet Farrar Work Phone: [facility] 03-16-2023 09:56-0400 Systolic blood pressure 136 mm[Hg] Dr. Preet Farrar Work Phone: [facility] 12-10-2022 09:04-0400 Body temperature 97 [degF] Preet Farrar DO Work Phone: [facility] 12-10-2022 09:04-0400 Body weight 79.83 kg Preet Farrar DO Work Phone: [facility] 12-10-2022 09:04-0400 Diastolic blood pressure 80 mm[Hg] Preet Farrar DO Work Phone: [facility] 12-10-2022 09:04-0400 Heart rate 68 /min Preet Farrar DO Work Phone: [facility] 12-10-2022 09:04-0400 Respiratory rate 16 /min Preet Farrar DO Work Phone: [facility] 12-10-2022 09:04-0400 Systolic blood pressure 138 mm[Hg] Preet Farrar DO Work Phone: [facility] 11-05-2022 11:17-0500 Body weight 79.56 kg Jacqueline Candelario APRN.CNP Work Phone: [facility] 11-05-2022 11:17-0500 Diastolic blood pressure 62 mm[Hg] Jacqueline Candelario CONTINUOUS IMPROVEMENT SPECIALIST.DIRECTOR STATISTICAL PROGRAMMING Work Phone: [facility] 11-05-2022 11:17-0500 Heart rate 72 /min Jacqueline Candelario CONTINUOUS IMPROVEMENT SPECIALIST.DIRECTOR STATISTICAL PROGRAMMING Work Phone: [facility] 11-05-2022 11:17-0500 Respiratory rate 16 /min Jacqueline Candelario CONTINUOUS IMPROVEMENT SPECIALIST.DIRECTOR STATISTICAL PROGRAMMING Work Phone: [facility] 11-05-2022 11:17-0500 Systolic blood pressure 110 mm[Hg] Jacqueline Candelario CONTINUOUS IMPROVEMENT SPECIALIST.DIRECTOR STATISTICAL PROGRAMMING Work Phone: [facility] 11-04-2022 12:18-0500 Body mass index (BMI) [Ratio] 34.7 kg/m2 Dr. Preet Farrar Work Phone: [facility] 11-04-2022 12:16-0500 Body temperature 98.4 [degF] Dr. Preet Farrar Work Phone: [facility] 11-04-2022 12:16-0500 Diastolic blood pressure 61 mm[Hg] Dr. Preet Farrar Work Phone: 8(397)292-136208 [place] [address] 11-04-2022 12:16-0500 Heart rate 63 /min Dr. Preet Farrar Work Phone: [facility] 11-04-2022 12:16-0500 Respiratory rate 15 /min Dr. Preet Farrar Work Phone: [facility] 11-04-2022 12:16-0500 SaO2% (BldA) [Mass fraction] 95 % Dr. Preet Farrar Work Phone: 6(126)748-169508 [place] [address] 11-04-2022 12:16-0500 Systolic blood pressure 123 mm[Hg] Dr. Preet Farrar Work Phone: [facility] 11-02-2022 17:26-0500 Body height 152.[address] Preet Farrar Work Phone: [facility] 11-02-2022 17:26-0500 Body weight 80.[address] Preet Farrar Work Phone: [facility] 02-19-2022 11:46-0400 Diastolic blood pressure 80 mm[Hg] Preet Farrar DO Work Phone: [facility] 02-19-2022 11:46-0400 Systolic blood pressure 160 mm[Hg] Preet Farrar DO Work Phone: [facility] 02-19-2022 11:20-0400 Body temperature 97.39 [degF] Preet Farrar DO Work Phone: [facility] 02-19-2022 11:20-0400 Heart rate 64 /min Preet Farrar DO Work Phone: [facility] 02-19-2022 11:20-0400 Respiratory rate 16 /min Preet Farrar DO Work Phone: [facility] 01-31-2022 11:15-0400 Diastolic blood pressure 84 mm[Hg] Kathryn Martir CONTINUOUS IMPROVEMENT SPECIALIST.DIRECTOR STATISTICAL PROGRAMMING Work Phone: [facility] 01-31-2022 11:15-0400 Heart rate 66 /min Kathryn Martir CONTINUOUS IMPROVEMENT SPECIALIST.DIRECTOR STATISTICAL PROGRAMMING Work Phone: [facility] 01-31-2022 11:15-0400 Respiratory rate 16 /min Kathryn Martir CONTINUOUS IMPROVEMENT SPECIALIST.DIRECTOR STATISTICAL PROGRAMMING Work Phone: [facility] 01-31-2022 11:15-0400 Systolic blood pressure 156 mm[Hg] Kathryn Martir CONTINUOUS IMPROVEMENT SPECIALIST.DIRECTOR STATISTICAL PROGRAMMING Work Phone: [facility] 01-23-2022 16:37-0400 Body temperature 97.9 [degF] Nataly Ryan APRN.DIRECTOR STATISTICAL PROGRAMMING Work Phone: [facility] 01-23-2022 16:37-0400 Diastolic blood pressure 96 mm[Hg] Nataly Ryan CONTINUOUS IMPROVEMENT SPECIALIST.DIRECTOR STATISTICAL PROGRAMMING Work Phone: [facility] 01-23-2022 16:37-0400 Heart rate 79 /min Nataly Ryan CONTINUOUS IMPROVEMENT SPECIALIST.DIRECTOR STATISTICAL PROGRAMMING Work Phone: [facility] 01-23-2022 16:37-0400 Respiratory rate 18 /min Nataly Ryan APRN.DIRECTOR STATISTICAL PROGRAMMING Work Phone: [facility] 01-23-2022 16:37-0400 SaO2% (BldA) [Mass fraction] 98 % Nataly Ryan APRN.DIRECTOR STATISTICAL PROGRAMMING Work Phone: [facility] 01-23-2022 16:37-0400 Systolic blood pressure 182 mm[Hg] Nataly Ryan APRN.DIRECTOR STATISTICAL PROGRAMMING Work Phone: [facility] 12-28-2020 10:47-0400 Body Temperature 96.69 [degF] d Almoselli [facility] Work Phone: 12-28-2020 10:47-0400 BP Diastolic 73 mm[Hg] d Almoselli [facility] Work Phone: 12-28-2020 [...] Date Encounter Type Care Provider Facility Start: 07-06-2025 Encounter for other preprocedural examination Anushka Tolbert Start: 06-21-2025 End: 06-21-[address] Anushka Isaac MD -[facility] Work Phone: Start: 06-21-2025 End: 06-21-[address] Preet Farrar DO Work Phone: -[facility] Start: 05-31-2025 End: 05-31-2025 Telephone encounter Preet Farrar DO Work Phone: [facility] [place] Comment on above: Insurance Authorizat ion Start: 05-31-2025 End: 05-31-2025 Patient encounter procedure Preet Farrar DO Work Phone: [facility] [place] Comment on above: Uncontrolled type 2 diabetes mellitus with hyperglycemia (HCC) (Primary Dx); Acquired hypothyroidism; Hyperlipidemia, mixed; Essential hypertension, benign; Obesity, Class II, BMI 35-39.9 Start: 05-31-2025 End: 05-31-2025 ambulatory PREET FARRAR Facility:[facility] Start: 05-26-2025 ambulatory Anushka Jauregui lity:[facility] Start: 05-26-2025 Non-patient / Non-visit Dr. Ton Isaac MD -[facility] Start: 05-25-2025 End: 05-25-2025 Emergency department patient visit Dr. Preet Farrar DO Work Phone: -Emergency Department Work Phone: Start: 05-23-2025 End: 05-23-2025 ambulatory PREET FARRAR Facility:[facility] Start: 05-15-2025 End: 05-15-2025 Refill Preet Farrar DO Work Phone: [facility] [place] Comment on above: Refill Request; Lab Orders Start: 04-28-2025 End: 04-28-2025 ambulatory PREET FARRAR Facility:[facility] Start: 04-19-2025 End: 04-19-2025 Refill Preet Farrar DO Work Phone: [facility] [place] Comment on above: Refill Request Start: 04-18-2025 End: 04-27-2025 Follow-up encounter Liliana Bennett APRN.DIRECTOR STATISTICAL PROGRAMMING Work Phone: [facility] [place] Start: 04-18-2025 End: 04-18-2025 ambulatory PREET FARRAR Facility:[facility] Start: 04-18-2025 End: 04-18-2025 Office outpatient visit 40 minutes Liliana Bennett APRN.DIRECTOR STATISTICAL PROGRAMMING Work Phone: [facility] [place] Comment on above: Type 2 diabetes belinda itus with hyperosmolarity without coma, with long-term current use of insulin (HCC) (Primary Dx); Uncontrolled type 2 diabetes mellitus with hyperglycemia (HCC); Encounter for diabetes education; Situational anxiety; Obesity, Class II, BMI 35-39.9; Essential hypertension, benign Start: 04-18-2025 End: 04-18-2025 ambulatory SELF Facility:[facility] Start: 04-17-2025 End: 04-17-2025 Telephone encounter Preet Farrar DO Work Phone: [facility] [place] Comment on above: Patient Update Start: 04-16-2025 End: 04-16-2025 ambulatory Darline Ng RN NURSE [employer]ITION [employer] WORKER Comment on above: High Blood Sugar Start: 04-15-2025 End: 04-15-2025 Emergency department patient visit Dr. Preet Farrar DO Work Phone: -Emergency Department Work Phone: Start: 04-06-2025 End: 04-07-2025 Telephone encounter Preet Farrar DO Work Phone: [facility] [place] Comment on above: Insurance Authorizat ion Start: 04-03-2025 End: 04-03-2025 Refill Preet Farrar DO Work Phone: [facility] [place] Comment on above: Refill Request Start: 03-29-2025 End: 03-29-2025 ambulatory DAYANAND MAKEY Facility:[facility] Start: 03-24-2025 End: 03-24-2025 Follow-up encounter Liliana Bennett APRN.DIRECTOR STATISTICAL PROGRAMMING Work Phone: Family [facility] Start: 03-22-2025 End: 03-22-2025 Office outpatient visit 15 minutes Liliana Bennett APRN.DIRECTOR STATISTICAL PROGRAMMING Work Phone: [facility] Comment on above: Uncontrolled type 2 diabetes mellitus with hyperglycemia (HCC); Screening for depression Start: 03-22-2025 End: 03-22-2025 Refill Liliana Bennett APRN.DIRECTOR STATISTICAL PROGRAMMING Work Phone: [facility] Start: 03-18-2025 End: 03-20-2025 Telephone encounter Preet Farrar DO Work Phone: [facility] Comment on above: Patient Update Start: 03-16-2025 End: 03-16-2025 Telephone encounter Preet Farrar DO Work Phone: [facility] Comment on above: Patient Question (re : insulin) Start: 02-17-2025 End: 02-17-2025 ambulatory PREET FARRAR Facility:[facility] Start: 02-16-2025 End: 02-16-[address] Preet Farrar DO Work Phone: [facility] Work Phone: Start: 02-16-2025 End: 02-16-[address] Julien Reyna MD -[facility] Work Phone: Start: 02-16-2025 End: 02-16-2025 ambulatory Julien Reyna Facility:[facility] Start: 02-14-2025 End: 02-14-2025 ambulatory BEAN ISAAC Facility:[facility] Start: 02-09-2025 End: 02-09-2025 Patient encounter procedure Bean Isaac MD Work Phone: Endocrinology Comment on above: Type 2 diabetes belinda itus with other circulatory complication, with long-term current use of insulin (HCC) (Primary Dx); Abnormal weight gain Start: 02-09-2025 End: 02-09-2025 ambulatory BEAN ISAAC Facility:[facility] Start: 02-06-2025 End: 02-06-[address] Anushka Isaac MD -[facility] Work Phone: Start: 02-06-2025 End: 02-06-2025 ambulatory Anushka Isaac Facility:[facility] Start: 01-26-2025 End: 01-26-[address] Julien Reyan MD -[facility] Work Phone: Start: 01-26-2025 End: 01-26-2025 ambulatory Julien Reyna Facility:[facility] Start: 01-09-2025 End: 01-09-[address] Anushka Isaac MD -[facility] Work Phone: Start: 01-09-2025 End: 01-09-2025 ambulatory Preet Farrar Facility:[facility] Start: 01-03-2025 End: 02-03-2025 ambulatory Preet L Farrar DO Work Phone: [facility] [place] Start: 12-30-2024 End: 01-03-2025 ambulatory Preet L Farrar DO Work Phone: [facility] [place] Comment on above: High Blood Sugar Start: 12-29-2024 End: 01-02-2025 Telephone encounter Preet L Farrar DO Work Phone: [facility] [place] Comment on above: Patient Question Start: 12-28-2024 Non-patient / Non-visit Dr. Ton Isaac MD -[facility] Start: 12-27-2024 Non-patient / Non-visit Dr. Renae Dallas MD -[facility] Work Phone: Start: 12-27-2024 End: 12-28-2024 Evaluation and management of inpatient Dr. Anushka Isaac MD -[facility] Work Phone: Start: 12-27-2024 ambulatory Preet Farrar Facilit y:[facility] Start: 12-27-2024 Non-patient / Non-visit Dr. Ton Isaac MD -[facility] Start: 12-21-2024 End: 12-21-2024 Telephone encounter Preet Farrar DO Work Phone: [facility] [place] Comment on above: Prior Authorization Request Start: 12-19-2024 End: 12-19-2024 Telephone encounter Preet Farrar DO Work Phone: [facility] [place] Comment on above: Patient Question; Up coming Surgery Start: 12-15-2024 End: 12-15-2024 ambulatory Preet Farrar Facility:[facility] Start: 12-15-2024 End: 12-15-2024 Non-patient / Non-visit Dr. Jamel Gray MD -[facility] Work Phone: Start: 12-14-2024 End: 12-14-2024 Telephone encounter Preet Farrar DO Work Phone: [facility] [place] Comment on above: Medication Question Start: 12-14-2024 End: 12-14-2024 ambulatory PREET FARRAR Facility:[facility] Start: 12-14-2024 End: 12-14-2024 Patient encounter procedure Preet Farrar DO Work Phone: [facility] [place] Comment on above: Uncontrolled type 2 diabetes mellitus with hyperglycemia (HCC) (Primary Dx); Hyperlipidemia, mixed; Vitamin B12 deficiency; Vitamin D deficiency; Essential hypertension, benign; Acquired hypothyroidism; Pre-op examination Start: 12-14-2024 End: 12-14-2024 Preprocedural examination done Preet Farrar DO Work Phone: [facility] Start: 12-12-2024 End: 12-12-[address] Anushka Isaac MD -[facility] Work Phone: Start: 12-12-2024 End: 12-12-2024 ambulatory Preet Farrar Facility:[facility] Start: 12-01-2024 End: 12-01-2024 Refill Preet Farrar DO Work Phone: [facility] [place] Comment on above: Refill Request Start: 11-29-2024 End: 11-29-2024 Refill Preet L Farrar DO Work Phone: [facility] Comment on above: Refill Request Start: 11-16-2024 End: 11-16-2024 ambulatory PREET L FARRAR Facility:[facility] Start: 11-11-2024 End: 11-11-2024 ambulatory PREET L FARRAR Facility:[facility] Start: 11-11-2024 End: 11-11-2024 Patient encounter procedure Bean Isaac MD Work Phone: Endocrinology Comment on above: Abnormal results of thyroid function studies (Primary Dx) Start: 11-07-2024 End: 11-07-2024 ambulatory PREET L FARRAR Facility:[facility] Start: 11-01-2024 End: 11-01-2024 Refill Preet L Farrar DO Work Phone: [facility] [place] Comment on above: Refill Request Start: 10-10-2024 ambulatory Julien Reyna Facility:[facility] Start: 10-10-2024 Non-patient / Non-visit Dr. Julien villanueva MD -[facility] Start: 10-10-2024 End: 10-10-[address] Julien Reyna MD -Cardiovascular Services Work Phone: Start: 10-10-2024 End: 10-10-2024 ambulatory Julien Reyna Facility:[facility] Start: 10-07-2024 End: 10-07-2024 ambulatory PREET Schmitt FARRAR Facility:[facility] Start: 10-07-2024 End: 10-07-2024 Patient encounter procedure Preet Keshia TrujilloFarrar DO Work Phone: [facility] Comment on above: Medicare annual well ness visit, subsequent (Primary Dx); Uncontrolled type 2 diabetes mellitus with hyperglycemia (HCC); Vitamin B12 deficiency; 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, without long-term current use of insulin (HCC); Hypothyroidism, unspecified type; Hyperlipidemia, mixed; Essential hypertension, benign; Acquired hypothyroidism; Vitamin D deficiency Start: 10-05-2024 End: 10-05-2024 ambulatory PREET L FARRAR Facility:[facility] Start: 10-04-2024 End: 10-04-2024 Telephone encounter Preet Farrar DO Work Phone: [facility] Start: 09-13-2024 End: 09-13-[address] Anushka Isaac MD -[facility] Work Phone: Start: 09-13-2024 End: 09-13-2024 ambulatory Anushka Isaac Facility:[facility] Start: 09-12-2024 End: 10-04-2024 Telephone encounter Preet Farrar DO Work Phone: [facility] Comment on above: Results Start: 09-06-2024 ambulatory Hermes Block Facility:[facility] Start: 09-06-2024 Non-patient / Non-visit Dr. Hermes chowdary MD -[facility] Start: 09-06-2024 End: 09-06-[address] Julien Reyna MD -Cardiovascular Services Work Phone: Start: 09-06-2024 End: 09-06-2024 ambulatory Julien Reyna Facility:[facility] Start: 2024 End: 2024 Refill Preet Schmitt Farrar DO Work Phone: [facility] Comment on above: Refill Request Start: 08-17-2024 End: 08-17-2024 ambulatory Julien Reyna Facility:[facility] Start: 08-11-2024 End: 08-11-2024 ambulatory PREET Schmitt FARRAR Facility:[facility] Start: 08-11-2024 End: 08-15-2024 Patient encounter procedure Bean Isaac MD Work Phone: Endocrinology Comment on above: Type 2 diabetes belinda itus with other circulatory complication, with long-term current use of insulin (HCC) (Primary Dx) Refill Request Start: 08-10-2024 End: 08-10-2024 ambulatory Preet Farrar Facility:[facility] Start: 08-09-2024 End: 08-09-2024 ambulatory Jackson Saravia MA [facility] Start: 08-09-2024 End: 08-09-2024 Patient encounter procedure Jackson Saravia MA [facility] Comment on above: Population Health Na vigation Outreach (AWV INITIATIVE) Start: 07-26-2024 End: 07-26-2024 ambulatory Anushka Isaac Facility:[facility] Start: 07-21-2024 End: 07-21-2024 ambulatory Preet Farrar Facility:[facility] Start: 07-20-2024 End: 07-21-2024 Telephone encounter Preet Trujillorison DO Work Phone: [facility] Start: 07-19-2024 End: 07-25-2024 Telephone encounter Preet Trujillorison DO Work Phone: [facility] Comment on above: Faxed Labs; Surgical Clearance Forms Start: 07-19-2024 End: 07-19-2024 ambulatory Anushka Isaac Facility:[facility] Start: 07-15-2024 End: 07-25-2024 Telephone encounter Preet Trujillorison DO Work Phone: [facility] [place] Comment on above: Results Start: 07-15-2024 End: 07-15-2024 ambulatory PREET L FARRAR Facility:[facility] Start: 06-17-2024 End: 06-17-2024 Refill Preet Keshia TrujilloFarrar DO Work Phone: [facility] Comment on above: Refill Request Start: 06-15-2024 End: 06-15-2024 Refill Preet Trujillorison DO Work Phone: [facility] [place] Comment on above: Refill Request Start: 06-14-2024 End: 06-14-2024 ambulatory PREET L FARRAR Facility:[facility] Start: 06-14-2024 End: 06-14-2024 Patient encounter procedure Preet L Farrar DO Work Phone: [facility] [place] Comment on above: Uncontrolled type 2 diabetes mellitus with hyperglycemia (HCC) (Primary Dx); Acquired hypothyroidism; Essential hypertension, benign; Vitamin B12 deficiency; Hyperlipidemia, mixed; Tobacco use disorder; Vitamin D deficiency Start: 05-25-2024 End: 05-25-2024 Patient encounter procedure Catalina Young CONTINUOUS IMPROVEMENT SPECIALIST.DIRECTOR STATISTICAL PROGRAMMING Work Phone: [facility] [place] Comment on above: Thickened endometriu m (Primary Dx); LLQ pain Start: 05-23-2024 End: 05-23-2024 Telephone encounter Preet Farrar DO Work Phone: [facility] [place] Comment on above: Future Appointment Refill Request Start: 05-10-2024 End: 10-04-2024 Telephone encounter Preet Farrar DO Work Phone: [facility] [place] Comment on above: Blood Pressure; Orde rs (lab work orders needed. the orders from november is ) Start: 05-10-2024 End: 05-10-2024 Patient encounter procedure Bean Isaac MD Work Phone: Endocrinology Comment on above: Type 2 diabetes belinda itus with other circulatory complication, with long-term current use of insulin (HCC) (Primary Dx) Start: 04-12-2024 Telephone encounter Preet rojas DO Work Phone: [facility] [place] Comment on above: Patient Update (Bloo d Sugar Readings) Start: 03-22-2024 Telephone encounter Preet rojas DO Work Phone: [facility] [place] Comment on above: Insulin [place] Start: 03-21-2024 End: 03-21-2024 Patient encounter procedure Preet Farrar DO Work Phone: [facility] [place] Comment on above: Gastroenteritis (Marleen darline Dx); Uncontrolled type 2 diabetes mellitus with hyperglycemia (HCC); Acquired hypothyroidism; Obesity, Class I, BMI 30-34.9; Acute dehydration; Situational anxiety Start: 03-10-2024 Patient Outreach Preet greco DO Work Phone: [facility] [place] Comment on above: Transition Of Care Start: 02-29-2024 Refill Preet Keshia Ronniedomenic franks DO Work Phone: [facility] [place] Comment on above: Refill Request Start: 02-15-2024 Telephone encounter Jacqueline Tracey franks CONTINUOUS IMPROVEMENT SPECIALIST.DIRECTOR STATISTICAL PROGRAMMING Work Phone: [facility] [place] Comment on above: Blood Sugar Readings Start: 02-03-2024 ambulatory Preet franks DO Work Phone: Internal Medicine [facility] [place] Start: 02-02-2024 Refill Preet franks DO Work Phone: [facility] [place] Comment on above: Refill Request Start: 01-27-2024 End: 01-27-2024 Patient encounter procedure Jacqueline Candelario CONTINUOUS IMPROVEMENT SPECIALIST.DIRECTOR STATISTICAL PROGRAMMING Work Phone: [facility] [place] Comment on above: Uncontrolled type 2 diabetes mellitus with hyperglycemia (HCC) (Primary Dx); Vaginal yeast infection; Poor sleep Start: 01-12-2024 Telephone encounter Preet rojas DO Work Phone: [facility] [place] Comment on above: Medication Problem; yeast infection again Start: 01-06-2024 End: 01-06-2024 Refill Preet Farrar DO Work Phone: [facility] [place] Comment on above: Refill Request Uncontrolled type 2 diabetes mellitus with hyperglycemia (HCC) (Primary Dx); Situational anxiety Start: 01-03-2024 Telephone encounter Altagracia De Guzman APRN.DIRECTOR STATISTICAL PROGRAMMING Work Phone: [facility] Comment on above: Results Start: 01-02-2024 ambulatory Preet franks DO Work Phone: [facility] [place] Comment on above: vaginal symptoms Start: 01-02-2024 End: 01-02-2024 Patient encounter procedure Jemima Iyer APRN.DIRECTOR STATISTICAL PROGRAMMING Work Phone: [facility] Comment on above: Vaginal itching (Marleen darline Dx); Dysuria; Glucosuria Start: 12-24-2023 Telephone encounter Preet rojas DO Work Phone: [facility] [place] Comment on above: Patient Question Start: 12-17-2023 End: 12-17-2023 ambulatory [facility] Work Phone: Start: 12-17-2023 End: 12-17-2023 Patient encounter procedure [facility], [facility] Work Phone: Start: 12-09-2023 End: 12-09-2023 Patient encounter procedure Preet Farrar DO Work Phone: [facility] [place] Comment on above: Uncontrolled type [...] 12-08-2023 Refill Preet franks DO Work Phone: [facility] [place] Comment on above: Refill Request Start: 11-25-2023 Telephone encounter Jacqueline franks CONTINUOUS IMPROVEMENT SPECIALIST.DIRECTOR STATISTICAL PROGRAMMING Work Phone: [facility] [place] Comment on above: Medication Request Start: 11-24-2023 End: 11-25-2023 Emergency department patient visit PREET FARRAR DO Facility:[facility] Start: 11-24-2023 End: 11-25-2023 Emergency department patient visit ELOISA LEVIN MD [facility] Start: 11-19-2023 Telephone encounter Jacqueline franks CONTINUOUS IMPROVEMENT SPECIALIST.DIRECTOR STATISTICAL PROGRAMMING Work Phone: [facility] [place] Start: 11-19-2023 End: 11-19-2023 Patient encounter procedure Jacqueline Candelario CONTINUOUS IMPROVEMENT SPECIALIST.DIRECTOR STATISTICAL PROGRAMMING Work Phone: [facility] [place] Comment on above: Essential hypertensi on, benign (Primary Dx); Situational anxiety Start: 11-18-2023 Telephone encounter Jacqueline franks CONTINUOUS IMPROVEMENT SPECIALIST.DIRECTOR STATISTICAL PROGRAMMING Work Phone: [facility] [place] Comment on above: Results Start: 11-13-2023 End: 11-13-2023 Patient encounter procedure Jacqueline Candelario CONTINUOUS IMPROVEMENT SPECIALIST.DIRECTOR STATISTICAL PROGRAMMING Work Phone: [facility] [place] Comment on above: Essential hypertensi on, benign (Primary Dx); Acquired hypothyroidism; Controlled type 2 diabetes mellitus without complication, with long-term current use of insulin (HCC); Uncontrolled type 2 diabetes mellitus with hyperglycemia (HCC) Start: 11-12-2023 Telephone encounter Preet rojas DO Work Phone: [facility] [place] Comment on above: Patient Update Start: 10-29-2023 End: 10-29-2023 Patient encounter procedure Jacqueline Candelario [place].DIRECTOR STATISTICAL PROGRAMMING Work Phone: [facility] [place] Comment on above: Essential hypertensi on, benign (Primary Dx) Start: 08-04-2023 Telephone encounter Preet montoyaison DO Work Phone: [facility] [place] Comment on above: Medication Question Start: 07-31-2023 Telephone encounter Preet March arrison DO Work Phone: [facility] [place] Comment on above: Results Start: 07-29-2023 ambulatory [facility] ([facility]ss[facility] Comment on above: Population Health Na vigation Outreach ([facility] care gap) Start: 07-29-2023 Telephone encounter Preet Keshia Joaquim montoyafannie DO Work Phone: [facility] [place] Comment on above: Insurance Authorizat ion Start: 07-28-2023 Telephone encounter Preet montoyafannie DO Work Phone: [facility] [place] Comment on above: Call from Dr. Kaylin lui, Neurologist Start: 07-27-2023 End: 07-27-[address] Preet Farrar Work Phone: [facility] Work Phone: Start: 07-27-2023 End: 07-27-[address] Preet Farrar Work Phone: [facility] Work Phone: Start: 07-27-2023 End: 07-27-[address] Preet Farrar Work Phone: [facility] Work Phone: Start: 07-22-2023 Telephone encounter Kathryn Milton erik AVILA.DIRECTOR STATISTICAL PROGRAMMING Work Phone: [facility] [place] Comment on above: Medication Problem Start: 07-15-2023 End: 07-15-2023 Patient encounter procedure Kathryn Rivero APRN.DIRECTOR STATISTICAL PROGRAMMING Work Phone: [facility] Comment on above: Uncontrolled type 2 diabetes mellitus with hyperglycemia (HCC) (Primary Dx); Acquired hypothyroidism; Essential hypertension, benign; Renal artery stenosis (HCC) Start: 07-06-2023 Telephone encounter Preet rojas DO Work Phone: [facility] Start: 07-03-2023 Non-patient / Non-visit Dr. Edita Farrar Work Phone: [facility] Work Phone: Start: 07-02-2023 Non-patient / Non-visit Dr. Edita Farrar Work Phone: [facility] Work Phone: Start: 07-01-2023 End: 07-03-2023 Evaluation and management of inpatient Dr. Preet Farrar Work Phone: [facility] Work Phone: Start: 07-01-2023 Telephone encounter Preet rojas DO Work Phone: [facility] Comment on above: Patient Update Start: 06-26-2023 End: 06-26-2023 Patient encounter procedure Jacqueline Candelario APRN.DIRECTOR STATISTICAL PROGRAMMING Work Phone: [facility] Comment on above: Nausea and vomiting, unspecified vomiting type (Primary Dx); Hyperglycemia; Controlled type 2 diabetes mellitus without complication, without long-term current use of insulin (HCC) Start: 06-19-2023 End: 06-19-2023 Patient encounter procedure Kathryn Rivero APRN.DIRECTOR STATISTICAL PROGRAMMING Work Phone: [facility] Comment on above: Uncontrolled type 2 diabetes mellitus with hyperglycemia (HCC) (Primary Dx); Acquired hypothyroidism; Vitamin B12 deficiency Start: 05-18-2023 Refill Preet franks DO Work Phone: [facility] Comment on above: Refill Request Start: 05-14-2023 End: 05-14-[address] Preet Farrar Work Phone: [facility] Work Phone: Start: 05-14-2023 End: 05-14-[address] Preet Farrar Work Phone: [facility] Work Phone: Start: 05-04-2023 Telephone encounter Preet rojas DO Work Phone: [facility] Comment on above: medication issue Start: 04-30-2023 End: 04-30-2023 Patient encounter procedure Jacqueline Kodak [place] Work Phone: [facility] Comment on above: Uncontrolled type 2 diabetes mellitus with hyperglycemia (HCC) Start: 04-09-2023 End: 04-09-[address] Preet Farrar Work Phone: [facility] Work Phone: Start: 04-09-2023 End: 04-09-[address] Preet Farrar Work Phone: [facility] Work Phone: Start: 03-24-2023 Telephone encounter Preet rojas DO Work Phone: [facility] Comment on above: Wray thyroid PA Start: 03-20-[address] Preet Farrar Work Phone: [facility] Work Phone: Start: 03-20-2023 End: 03-20-2023 Non-patient / Non-visit Dr. Preet Farrar Work Phone: [facility] Work Phone: Start: 03-18-2023 End: 03-18-2023 Patient encounter procedure Preet Farrar DO Work Phone: [facility] Comment on above: Uncontrolled type 2 diabetes mellitus with hyperglycemia (HCC) (Primary Dx); Acquired hypothyroidism; Dyslipidemia; History of tobacco abuse; Essential hypertension, benign Start: 03-16-2023 End: 03-16-[address] Preet Farrar Work Phone: [facility] Work Phone: Start: 03-03-2023 Refill Preet franks DO Work Phone: [facility] [place] Comment on above: Refill Request Start: 02-02-2023 Refill Preet franks DO Work Phone: [facility] [place] Comment on above: Refill Request Start: 12-23-2022 Telephone encounter Preet Schmitt Joaquim janfannie DO Work Phone: [facility] [place] Comment on above: Medication Problem; Patient Update Start: 12-15-2022 Telephone encounter Preet rojas DO Work Phone: [facility] [place] Comment on above: Patient Update Start: 12-10-2022 End: 12-10-2022 Patient encounter procedure Preet Farrar DO Work Phone: [facility] [place] Comment on above: Uncontrolled type 2 diabetes mellitus with hyperglycemia (HCC) (Primary Dx); Ischemic stroke without residual deficits (HCC); Dyslipidemia; Acquired hypothyroidism; Vitamin D deficiency; Vitamin B12 deficiency; History of tobacco abuse Start: 11-20-2022 End: 11-20-[address] Preet Farrar Work Phone: [facility] Work Phone: Start: 11-20-2022 End: 11-20-[address] Preet Farrar Work Phone: [facility] Therapy Start: 11-05-2022 End: 11-05-2022 Patient encounter procedure Jacqueline Candelario APRN.CNP Work Phone: [facility] Comment on above: Ischemic stroke with out residual deficits (HCC) (Primary Dx); Essential hypertension, benign; Uncontrolled type 2 diabetes mellitus with hyperglycemia (HCC); Dyslipidemia; Encounter for smoking cessation counseling; Controlled type 2 diabetes mellitus without complication, without long-term current use of insulin (HCC) Start: 11-04-2022 Non-patient / Non-visit Dr. Edita Farrar Work Phone: [facility] Start: 11-03-2022 Non-patient / Non-visit Dr. Edita Farrar Work Phone: [facility] Start: 11-03-2022 Non-patient / Non-visit Dr. Edita Farrar Work Phone: [facility] Start: 11-02-2022 Non-patient / Non-visit Dr. Edita Farrar Work Phone: [facility] Start: 11-02-2022 End: 11-04-2022 Evaluation and management of inpatient Dr. Preet Farrar Work Phone: [facility] Start: 11-02-2022 End: 11-04-[address] Preet Farrar Work Phone: [facility] Work Phone: Start: 11-02-2022 ambulatory Janis solorio RN NURSE NUTRITION SERVICES WORKER Comment on above: Foot Deformity Start: 10-08-2022 Refill Preet franks DO Work Phone: [facility] Comment on above: Refill Request Start: 09-03-2022 Telephone encounter Preet rojas DO Work Phone: [facility] Comment on above: Patient Question; Or ders Start: 08-27-2022 Refill Preet franks DO Work Phone: [address] [place] [address] Comment on above: Refill Request Start: 05-28-2022 Refill Preet franks DO Work Phone: [facility] Comment on above: Refill Request Start: 05-06-2022 Refill Jacqueline loera APRN.CNP Work Phone: [facility] Comment on above: Refill Request Start: 04-09-2022 End: 04-09-2022 Patient encounter procedure [facility] Start: 04-07-2022 Telephone encounter Preet rojas DO Work Phone: [facility] Comment on above: Results Start: 04-02-2022 Refill Preet franks DO Work Phone: [facility] Comment on above: Refill Request Start: 03-26-2022 ambulatory Preet franks DO Work Phone: Internal Medicine [facility] Start: 02-28-2022 End: 02-28-2022 Subsequent hospital visit by physician Xr [facility] Work Phone: Radiology Comment on above: Closed fracture of d istal end of left fibula, unspecified fracture morphology, initial encounter [F05.542A] Start: 02-27-2022 Telephone encounter Preet rojas DO Work Phone: [facility] Comment on above: Patient Question Start: 02-21-2022 Telephone encounter Preet rojas DO Work Phone: [facility] Comment on above: Results Start: 02-20-2022 Refill Preet franks DO Work Phone: [facility] Comment on above: Refill Request Start: 02-19-2022 End: 02-19-2022 Patient encounter procedure Preet Farrar DO Work Phone: [facility] Comment on above: Uncontrolled hyperte nsion (Primary Dx); Palpitations; Uncontrolled type 2 diabetes mellitus with hyperglycemia (HCC); Essential hypertension, benign; Acquired hypothyroidism Start: 02-12-2022 Telephone encounter Preet March arrfannie DO Work Phone: [facility] Comment on above: Patient Question; Wali smiley Update Start: 02-10-2022 End: 02-10-2022 Subsequent hospital visit by physician [facility] [place] [facility] Work Phone: Radiology Comment on above: Closed fracture of d istal end of left fibula, unspecified fracture morphology, initial encounter [D27.442A] Start: 01-31-2022 End: 01-31-2022 Patient encounter procedure Kathryn Rivero DIRECTOR STATISTICAL PROGRAMMING Work Phone: [facility] Comment on above: Essential hypertensi on, benign [...] 01-23-2022 Subsequent hospital visit by physician Xr [facility] [place] Work Phone: Radiology Comment on above: Acute left ankle karie n [M25.572] Start: 01-23-2022 End: 01-23-2022 Patient encounter procedure Nataly Connor TINEODIRECTOR STATISTICAL PROGRAMMING Work Phone: [facility] Comment on above: Acute left ankle karie n (Primary Dx) Start: 01-14-2022 Telephone encounter Preet rojas DO Work Phone: [facility] [place] Comment on above: Insurance Authorizat ion Start: 06-07-2021 Telephone encounter Preet rojas DO Work Phone: [facility] [place] Comment on above: Results Start: 12-21-2020 End: 12-28-2020 Evaluation and management of inpatient Mhd Yenibernadettearaceli Gunter Work Phone: [facility] TE[facility] Procedures Date Procedure Procedure Detail Performing Clinician Start: 04-18-2025 Gluc bld gluc mntr d ev cleared fda spec home use Liliana Bennett APRN.DIRECTOR STATISTICAL PROGRAMMING Work Phone: Start: 04-15-2025 Estimated creatinine clearance [...] Start: 03-22-2025 Adult depression screening assessment Liliana Nuñezo CONTINUOUS IMPROVEMENT SPECIALIST.DIRECTOR STATISTICAL PROGRAMMING Work Phone: Start: 02-16-2025 CT of abdominal [...] 01-06-2024 Hemoglobin A1c/Hemoglobin.total in Blood Jacqueline Candelario CONTINUOUS IMPROVEMENT SPECIALIST.DIRECTOR STATISTICAL PROGRAMMING Work Phone: Start: 01-02-2024 Gluc bld gluc mntr d ev cleared fda spec home use Jemima Iyer CONTINUOUS IMPROVEMENT SPECIALIST.DIRECTOR STATISTICAL PROGRAMMING Work Phone: Start: 01-02-2024 Urnls dip stick/tabl et rgnt auto w/o microscopy Jemima Iyer CONTINUOUS IMPROVEMENT SPECIALIST.DIRECTOR STATISTICAL PROGRAMMING Work Phone: Start: 12-17-2023 CT angiography of [...] Radex ankle complete minimum 3 views Steve Reakaylyn Work Phone: Start: 02-10-2022 Radex ankle complete minimum 3 views Steve Rodriguez Work Phone: Start: 01-23-2022 Radex ankle complete minimum 3 views Nataly Ryan APRN.CNP Work Phone: Start: 04-24-2021 Adult depression screening [...] use Mhd Khaled Almoselli Work Phone: Start: 12-24-2020 Gluc bld gluc mntr d ev cleared fda spec home use Mhd Khaled Almoselli Work Phone: Start: 12-24-2020 Gluc bld gluc mntr d ev cleared fda spec home use Mhd Khaled Almoselli Work Phone: Start: 12-24-2020 Assay of thyroid stimulating hormone tsh Mhd Khaled Almoselli Work Phone: Start: 12-24-2020 Gluc bld gluc mntr d ev cleared fda spec home use Mhd Yenialed Almoselli Work Phone: Start: 12-24-2020 Gluc bld gluc mntr d ev cleared fda spec home use d Yenialed Almoselli Work Phone: Start: 12-24-2020 Gluc bld gluc mntr d ev cleared fda spec home use d Yenialed Almoselli Work Phone: Start: 12-24-2020 Blood count complete auto&auto difrntl wbc d Marield [employer] Work Phone: Start: 12-24-2020 Gluc bld gluc mntr d ev cleared fda spec home use d Marield [employer] Work Phone: Start: 12-23-2020 Gluc bld gluc mntr d ev cleared fda spec home use d Marield [employer] Work Phone: Start: 12-23-2020 Gluc bld gluc mntr d ev cleared fda spec home use d Marield [employer] Work Phone: Start: 12-23-2020 Gluc bld gluc mntr d ev cleared fda spec home use d Yenialed [employer] Work Phone: Start: 12-23-2020 Gluc bld gluc mntr d ev cleared fda spec home use d Marield [employer] Work Phone: Start: 12-23-2020 Gluc bld gluc mntr d ev cleared fda spec home use d Yenialed [employer] Work Phone: Start: 12-23-2020 Blood count complete auto&auto difrntl wbc d Yenialed Wilmeroselli Work Phone: Start: 12-23-2020 Gluc bld gluc mntr d ev cleared fda spec home use Mhd Khaled [employer] Work Phone: Start: 12-22-2020 Gluc bld gluc mntr d ev cleared fda spec home use d Khaled [employer] Work Phone: Start: 12-22-2020 Gluc bld gluc mntr d ev cleared fda spec home use araceli Gunter Work Phone: Start: 12-22-2020 Blood count complete auto&auto difrntl wbc araceli Gunter Work Phone: Start: 12-22-2020 MANUAL DIFFERENTIAL [facility] Jose Gunter Work Phone: Start: 12-22-2020 Gluc bld [...] use araceli Gunter Work Phone: Start: 12-22-2020 Hemoglobin glycosyla milton a1c Trevaasa Henderson Work Phone: Start: 12-21-2020 OPERATIVE REPORT [...] [employer] Work Phone: Start: 12-21-2020 Prothrombin time Rosalio Rock Work Phone: Start: 12-21-2020 Thromboplastin time partial plasma/whole blood Shilpi De PazcoUrbanize Work Phone: Start: 12-21-2020 End: 12-22-2020 Gluc bld gluc mntr dev cleared fda spec home use Mhd Jose Gunter Work Phone: Start: 12-21-2020 Ecg routine ecg w/le ast 12 lds w/i&r Shilpi Sunita ZandracoUrbanize Work Phone: Start: 11-16-2013 Mammography Preet nuñez DO Work Phone: Start: 09-09-2013 Colonoscopy Preet nuñez DO Work Phone: H/O: hysterectomy History of tot al vaginal hysterectomy (TVH) Dr. Preet Farrar DO Work Phone: Comment on above: SM endometrial hyper plasia H/O: hysterectomy History of tot al vaginal hysterectomy (TVH) Dr. Anushka Isaac MD H/O: hysterectomy History of hysterectomy Dr. Preet Farrar DO Work Phone: Hernia repair ELOISA LEVIN MD Special back care ELOISA MCKEON MD Tonsillectomy ELOISA LEVIN MD Plan of Treatment Date Care Activity Detail Author Start: 05-31-2026 Annual PCP Team Chronic Disease Visit Annual PCP Team Chronic Disease Visit [facility] Start: 05-23-2026 Hepatitis B surface antibody level LDL Cholesterol [facility] Start: 04-18-2026 Annual PCP Team Chronic Disease Visit Annual PCP Team Chronic Disease Visit [facility] Start: 04-18-2026 Hepatitis B screening Urine Albumin:Creatinine Ratio [facility] Start: 03-22-2026 Annual PCP Team Chronic Disease Visit Annual PCP Team Chronic Disease Visit [facility] Start: 03-22-2026 Depression Screening Depression Screening [facility] Start: 02-17-2026 Annual PCP Team Chronic Disease Visit Annual PCP Team Chronic Disease Visit [facility] Start: 02-09-2026 BP Controlled (<130/80) BP Controlled (<130/80) [facility] Start: 12-14-2025 Annual PCP Team Chronic Disease Visit Annual PCP Team Chronic Disease Visit [facility] Start: 11-11-2025 BP Controlled (<130/80) BP Controlled (<130/80) [facility] Start: 10-07-2025 Annual PCP Team Chronic Disease Visit Annual PCP Team Chronic Disease Visit [facility] Start: 10-07-2025 BP Controlled (<130/80) BP Controlled (<130/80) [facility] Start: 10-07-2025 Covid-19 Vaccine () Covid-19 Vaccine () [facility] Comment on above: Postponed from 05/29/2024 (Declined at t his time) Start: 10-05-2025 Hepatitis B surface antibody level LDL Cholesterol [facility] Start: 09-05-2025 End: 09-05-2025 Patient encounter procedure 09/05/2025 11:20 AM EST Office Visit [facility] [place] [address] [facility] [place] [address] Preet Farrar, DO [address] [facility] [place] [address] yearly [facility] [place] Comment on above: yearly Start: 08-28-2025 End: 08-28-2025 Patient encounter procedure 08/28/2025 11:00 AM EST Office Visit [facility] [place] [address] [place] [address] Preet Farrar, DO [address] [facility] [place] [address] yearly [facility] [place] Comment on above: yearly Start: 08-23-2025 Hemoglobin A1c measurement HbA1C [facility] Start: 07-13-2025 Glaucoma screening Dilated Retinal Exam [facility] Start: 06-22-2025 Hemoglobin A1c measurement HbA1C [facility] Start: 06-14-2025 Annual PCP Team Chronic Disease Visit Annual PCP Team Chronic Disease Visit [facility] Start: 05-31-2025 End: 05-31-2025 Patient encounter procedure 05/31/2025 11:20 AM EDT Office Visit [facility] [place] [address] [place] [address] Preet Farrar DO [address] [place] [id number] 3 month follow up [facility] Medicine [place] Comment on above: 3 month follow up Start: 05-29-2025 Influenza vaccination [facility] Start: 05-25-2025 [facility] Start: 05-25-2025 Annual PCP Team Chronic Disease Visit Annual PCP Team Chronic Disease Visit [facility] Start: 05-25-2025 BP Controlled (<130/80) BP Controlled (<130/80) [facility] Start: 05-17-2025 Hepatitis B surface antibody level LDL Cholesterol [facility] Start: 05-15-2025 End: 08-14-2025 Hemoglobin A1c in Blood HEMOGLOBIN A1C Lab Routine Uncontrolled type 2 diabetes mellitus with hyperglycemia (HCC) Expected: 05/15/2025, Expires: 08/14/2025 [facility] Work Phone: Comment on above: Expected: 05/15/2025, Expires: Start: 05-15-2025 End: 08-14-2025 Lipid 1996 panel - Serum or Plasma LIPID PANEL, FASTING Lab Routine Hyperlipidemia, mixed Expected: 05/15/2025, Expires: 08/14/2025 [facility] Comment on above: Expected: 05/15/2025, Expires: Start: 05-15-2025 End: 08-14-2025 Thyrotropin [Units/volume] in Serum or Plasma THYROID STIMULATING HORMONE Lab Routine Acquired hypothyroidism Expected: 05/15/2025, Expires: 08/14/2025 [facility] Comment on above: Expected: 05/15/2025, Expires: Start: 04-27-2025 End: 07-27-2025 Bacteria identified in Urine by Culture BACTERIAL CULTURE, URINE Microbiology Routine Other elevated white blood cell (WBC) count Expected: 04/27/2025, Expires: 07/27/2025 [facility] Comment on above: Expected: 04/27/2025, Expires: Start: 04-27-2025 End: 07-27-2025 CBC W Auto Differential panel - Blood COMPLETE BLOOD COUNT AND DIFFERENTIAL Lab Routine Other elevated white blood cell (WBC) count Expected: 04/27/2025, Expires: 07/27/2025 [facility] Comment on above: Expected: 04/27/2025, Expires: Start: 04-27-2025 End: 07-27-2025 Urinalysis complete panel - Urine URINALYSIS, WITH MICROSCOPIC Lab Routine Other elevated white blood cell (WBC) count Expected: 04/27/2025, Expires: 07/27/2025 [facility] Work Phone: Comment on above: Expected: 04/27/2025, Expires: Start: 04-18-2025 End: 04-18-2025 Patient encounter procedure 04/18/2025 8:20 AM EDT Office Visit [facility] [address] [place], [place] [address] Liliana Bennett APRN.DIRECTOR STATISTICAL PROGRAMMING [address] [place], [place] [id number] Elevated Blood Sugar [facility] Comment on above: Elevated Blood Sugar Start: 04-15-2025 [facility] Start: 04-10-2025 End: 04-10-2025 Patient encounter procedure 04/10/2025 10:00 AM EDT Office Visit [facility] [address] [place] [address] rPeet Farrar DO [address] [place] [address] 3 month follow up [facility] Comment on above: 3 month follow up Start: 04-04-2025 Hemoglobin A1c measurement HbA1C [facility] Start: 03-27-2025 Influenza vaccination Influenza Vaccine (#1) [facility] Jazmin rodríguez Comment on above: Postponed from 05/29/2024 (Declined at t his time) Start: 03-22-2025 End: 03-22-2025 Patient encounter procedure 03/22/2025 2:00 PM EDT Office Visit [facility] Medicine [place] [address] [facility] [place] [address] Liliana Bennett APRN.DIRECTOR STATISTICAL PROGRAMMING [address] [facility] [address] Follow up-nausea for 1 week and diabetes [facility] [place] Comment on above: Follow up-nausea for 1 week and diabetes Start: 03-21-2025 Annual PCP Team Chronic Disease Visit Annual PCP Team Chronic Disease Visit [facility] Start: 02-17-2025 End: 02-17-2025 Patient encounter procedure 02/17/2025 3:40 PM EDT Office Visit [facility] [address] [facility], [place] [id number] Preet Farrar DO [address] [place] [address] 3 month follow up [facility] Comment on above: 3 month follow up Start: 02-14-2025 End: 02-14-2025 Nursing evaluation of patient and report 02/14/2025 1:00 PM EDT Nurse Visit Endocrinology [address] [place] [address], [place] [id number] Rodrigo Holguin, RN [address] [address] Type 2 diabetes mellitus with other circulatory [...] Visit Annual PCP Team Chronic Disease Visit [facility] Start: 01-26-2025 BP Controlled (<130/80) BP Controlled (<130/80) [facility] Start: 01-05-2025 Annual PCP Team Chronic Disease Visit Annual PCP Team Chronic Disease Visit [facility] Start: 12-28-2024 Introduction of urinary catheter [facility] Start: 12-28-2024 End: 12-28-2024 [facility] Start: 12-28-2024 Patient discharge [facility] Start: 12-28-2024 Removal of urinary catheter [facility] Start: 12-27-2024 Following clinical pathway protocol [facility] Start: 12-27-2024 Consultation [facility] Start: 12-27-2024 Ambulation therapy management [facility] Start: 12-27-2024 Application of intermittent pneumatic compression device [facility] Start: 12-27-2024 [facility] Start: 12-27-2024 Following clinical pathway protocol [facility] Start: 12-27-2024 Incentive spirometry [facility] Start: 12-27-2024 Measuring intake and output [facility] Start: 12-27-2024 Notification of physician [facility] Start: 12-27-2024 Oxygen therapy [facility] Start: 12-27-2024 Procedures relating to eating and drinking [facility] Start: 12-27-2024 Taking patient vital signs [facility] Start: 12-27-2024 [facility] Start: 12-27-2024 Introduction of urinary catheter [facility] Start: 12-27-2024 Admission procedure [facility] Start: 12-27-2024 [facility] Start: 12-14-2024 End: 12-14-2024 Patient encounter procedure 12/14/2024 11:00 AM EDT Office Visit [facility] [place] [address] [place] [address] Preet Farrar DO [address] [place] [address] Pre op Exam [facility] [place] Comment on above: Pre op Exam Start: 12-08-2024 Annual PCP Team Chronic Disease Visit Annual PCP Team Chronic Disease Visit [facility] Start: 12-08-2024 Glaucoma screening Dilated Retinal Exam [facility] Start: 11-19-2024 Annual PCP Team Chronic Disease Visit Annual PCP Team Chronic Disease Visit [facility] Start: 11-19-2024 BP Controlled (<130/80) BP Controlled (<130/80) [facility] Start: 11-17-2024 Hemoglobin A1c measurement HbA1C [facility] Start: 11-13-2024 Annual PCP Team Chronic Disease Visit Annual PCP Team Chronic Disease Visit [facility] Start: 11-13-2024 Covid-19 Vaccine (#1) Covid-19 Vaccine (#1) [facility] Comment on above: Postponed from 03/03/1956 (Declined at t his time) Start: 11-13-2024 Covid-19 Vaccine ( season) Covid-19 Vaccine () [facility] Comment on above: Postponed from 05/29/2023 (Declined at t his time) Start: 11-13-2024 Hepatitis B screening Urine Albumin:Creatinine Ratio [facility] Start: 11-13-2024 Hepatitis B surface antibody level LDL Cholesterol [facility] Start: 11-13-2024 Pneumococcal Vaccine: 50+ (1 of 2 - PCV) Pneumococcal Vaccine: 50+ (1 of 2 - PCV) [facility] Comment on above: Postponed from 1974 (Declined at t his time) Start: 11-13-2024 Pneumococcal Vaccine: 65+ (1 of 2 - PCV) Pneumococcal Vaccine: 65+ (1 of 2 - PCV) [facility] Comment on above: Postponed from 1961 (Declined at t his time) Start: 11-13-2024 Shingrix Vaccine (1 of 2) Shingrix Vaccine (1 of 2) [facility] Comment on above: Postponed from 2005 (Declined at t his time) Start: 11-13-2024 Urine microalbumin profile DTaP,Tdap,Td Vaccine (1 - Tdap) [facility] Comment on above: Postponed from 1974 (Declined at t his time) Start: 11-11-2024 End: 02-10-2025 Thyrotropin [Units/volume] in Serum or Plasma THYROID STIMULATING HORMONE Lab Routine Abnormal results of thyroid function studies Expected: 11/11/2024, Expires: 02/10/2025 [facility] Work Phone: Comment on above: Expected: 11/11/2024, Expires: Start: 11-11-2024 End: 02-10-2025 THYROXIN, FR BY EQ DIALYSIS/HPLC-TNDMMS THYROXIN, FR BY EQ DIALYSIS/HPLC-TNDMMS Lab Routine Abnormal results of thyroid function studies Expected: 11/11/2024, Expires: 02/10/2025 [facility] Comment on above: Expected: 11/11/2024, Expires: Start: 11-11-2024 End: 11-11-2024 Patient encounter procedure 11/11/2024 9:40 AM EST Office Visit Endocrinology [address] [place], [place] [id number] Bean Isaac [facility] [address] [facility] [place], [place] [address] 3 month follow up Endocrinology Comment on above: 3 month follow up Start: 11-01-2024 End: 11-01-2024 Patient encounter procedure 11/01/2024 1:00 PM EST Office Visit Cardiology [address] [address] Torri Hunt MD [address] [place] [address] Rescheduled from 07/25 Cardiology Comment on above: Rescheduled from 07/25 Start: 10-29-2024 Annual PCP Team Chronic Disease Visit Annual PCP Team Chronic Disease Visit [facility] Start: 10-07-2024 End: 10-07-2024 Patient encounter [...] of insulin (HCC) Expected: 10/04/2024, Expires: 01/03/2025 [facility] Comment on above: Expected: 10/04/2024, Expires: Start: 10-04-2024 End: 01-03-2025 Comprehensive metabolic 2000 panel - Serum or Plasma COMPREHENSIVE METABOLIC PANEL Lab Routine Hyperlipidemia, mixed Expected: 10/04/2024, Expires: 01/03/2025 [facility] Comment on above: Expected: 10/04/2024, Expires: Start: 10-04-2024 End: 01-03-2025 Hemoglobin A1c in Blood HEMOGLOBIN A1C Lab Routine 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, without long-term current use of insulin (HCC) Expected: 10/04/2024, Expires: 01/03/2025 [facility] Comment on above: Expected: 10/04/2024, Expires: Start: 10-04-2024 End: 01-03-2025 Lipid 1996 panel - Serum or Plasma LIPID PANEL BASIC Lab Routine Hyperlipidemia, mixed Expected: 10/04/2024, Expires: 01/03/2025 [facility] Comment on above: Expected: 10/04/2024, Expires: Start: 10-04-2024 End: 01-03-2025 Thyrotropin [Units/volume] in Serum or Plasma THYROID STIMULATING HORMONE Lab Routine Hypothyroidism, unspecified type Expected: 10/04/2024, Expires: 01/03/2025 [facility] Work Phone: Comment on above: Expected: 10/04/2024, Expires: Start: 10-04-2024 End: 01-03-2025 Thyroxine (T4) free [Mass/volume] in Serum or Plasma T4 FREE/FREE THYROXINE Lab Routine Hypothyroidism, unspecified type Expected: 10/04/2024, Expires: 01/03/2025 [facility] Comment on above: Expected: 10/04/2024, Expires: Start: 10-04-2024 End: 01-03-2025 Triiodothyronine (T3) Free [Mass/volume] in Serum or Plasma T3, FREE Lab Routine Hypothyroidism, unspecified type Expected: 10/04/2024, Expires: 01/03/2025 [facility] Comment on above: Expected: 10/04/2024, Expires: Start: 09-14-2024 RSV Vaccine (1 - 1-dose 60+ series) RSV Vaccine (1 - 1-dose 60+ series) [facility] Comment on above: Postponed from 2015 (Declined at t his time) Start: 09-14-2024 RSV Vaccine (1 - Risk 60-74 years 1-dose series) RSV Vaccine (1 - Risk 60-74 years 1-dose series) [facility] Comment on above: Postponed from 2015 (Declined at t his time) Start: 08-11-2024 End: 11-10-2024 Cortisol [Mass/volume] in Serum or Plasma --post dose dexamethasone CORTISOL SUPRES POST Lab Routine Type 2 diabetes mellitus with other circulatory complication, with long-term current use of insulin (HCC) Expected: 08/11/2024, Expires: 11/10/2024 [facility] Comment on above: Expected: 08/11/2024, Expires: Start: 08-11-2024 End: 11-10-2024 DEXAMETHASONE DEXAMETHASONE Lab Routine Type 2 diabetes mellitus with other circulatory complication, with long-term current use of insulin (HCC) Expected: 08/11/2024, Expires: 11/10/2024 [facility] Work Phone: Comment on above: Expected: 08/11/2024, Expires: Start: 08-11-2024 End: 08-11-2024 Patient encounter procedure 08/11/2024 9:40 AM EST Office Visit Endocrinology [address] [place] [id number] Bean Isaac MD [address] [place] [id number] 3 MTH F/U Endocrinology Comment on above: 3 MTH F/U Start: 07-25-2024 End: 07-25-2024 Patient encounter procedure 07/25/2024 10:20 AM EDT Office Visit Cardiology [address] [place] [id number] Jose Lay MD [address] [facility], [address] [place], [place] [id number] Uncontrolled type 2 diabetes mellitus with hyperglycemia (HCC) [E11.65] Cardiology Comment on above: Uncontrolled type 2 diabetes mellitus wi th hyperglycemia (HCC) [E11.65] Start: 07-15-2024 Annual PCP Team Chronic Disease Visit Annual PCP Team Chronic Disease Visit [facility] Start: 07-15-2024 BP Controlled (<130/80) BP Controlled (<130/80) [facility] in Start: 07-15-2024 Hepatitis B Vaccine (1 of 3 - Risk 3-dose series) Hepatitis B Vaccine (1 of 3 - Risk 3-dose series) [facility] Comment on above: Postponed from 2015 (Declined at t his time) Start: 07-14-2024 End: 10-13-2024 Thyrotropin [Units/volume] in Serum or Plasma THYROID STIMULATING HORMONE Lab Routine Acquired hypothyroidism Expected: 07/14/2024, Expires: 10/13/2024 [facility] Work Phone: Comment on above: Expected: 07/14/2024, Expires: Start: 07-14-2024 End: 10-13-2024 Thyroxine (T4) free [Mass/volume] in Serum or Plasma T4 FREE/FREE THYROXINE Lab Routine Acquired hypothyroidism Expected: 07/14/2024, Expires: 10/13/2024 [facility] Comment on above: Expected: 07/14/2024, Expires: Start: 07-14-2024 End: 10-13-2024 Triiodothyronine (T3) Free [Mass/volume] in Serum or Plasma T3, FREE Lab Routine Acquired hypothyroidism Expected: 07/14/2024, Expires: 10/13/2024 [facility] Comment on above: Expected: 07/14/2024, Expires: Start: 07-07-2024 Hemoglobin A1c measurement HbA1C [facility] Start: 06-27-2024 End: 06-27-2024 Patient encounter procedure 06/27/2024 9:20 AM EDT Office Visit Family Medicine [place] [address] [facility] [place] [id number] Preet Farrar DO [address] [place] [id number] 2-3 month follow up Family Medicine [place] Comment on above: 2-3 month follow up Start: 06-26-2024 Annual PCP Team Chronic Disease Visit Annual PCP Team Chronic Disease Visit [facility] Start: 06-26-2024 BP Controlled (<130/80) BP Controlled (<130/80) [facility] Start: 06-19-2024 Annual PCP Team Chronic Disease Visit Annual PCP Team Chronic Disease Visit [facility] Start: 06-19-2024 BP Controlled (<130/80) BP Controlled (<130/80) [facility] Start: 06-15-2024 Hepatitis B surface antibody level LDL Cholesterol [facility] Start: 05-29-2024 Covid-19 Vaccine ( season) Covid-19 Vaccine ( season) [facility] Start: 05-29-2024 Covid-19 Vaccine () Covid-19 Vaccine () [facility] Start: 05-29-2024 Influenza vaccination [facility] Start: 05-25-2024 End: 05-25-2024 Patient encounter procedure 05/25/2024 2:40 PM EDT Office Visit Family Medicine [place] [address] [place] [id number] PodlogCatalina arreguin APRN.DIRECTOR STATISTICAL PROGRAMMING [address] [place] [address] [facility] ER 05/22/24 Left side pain Family Medicine [place] Comment on above: [facility] ER 05/22/24 Left side pain Start: 05-16-2024 Hemoglobin A1c measurement HbA1C [facility] Start: 05-13-2024 Hemoglobin A1c measurement HbA1C [facility] Start: 05-10-2024 End: 05-10-2024 Patient encounter procedure 05/10/2024 1:40 PM EDT Office Visit Endocrinology [address] [place] [address] Bean Isaac MD [address] [place] [address] Uncontrolled type 2 diabetes mellitus with hyperglycemia (HCC) [E11.65] Endocrinology Comment on above: Uncontrolled type 2 diabetes mellitus wi th hyperglycemia (HCC) [E11.65] Start: 04-30-2024 ANNUAL PCP TEAM CHRONIC DISEASE VISIT ANNUAL PCP TEAM CHRONIC DISEASE VISIT [facility] Start: 03-27-2024 Influenza vaccination [facility] Comment on above: Postponed from 05/29/2023 (Declined at t his time) Start: 03-21-2024 End: 03-21-2024 Patient encounter procedure Family [facility] [place] Comment on above: medicare wellness TCM. [facility] hosp f/u d/ c 03-09-24. Gastroenteritis. Hyperglycemia. Start: 03-18-2024 ANNUAL PCP TEAM CHRONIC DISEASE VISIT ANNUAL PCP TEAM CHRONIC DISEASE VISIT [facility] Start: 03-10-2024 End: 06-09-2024 CBC panel - Blood by Automated count CBC Lab Routine Uncontrolled type 2 diabetes mellitus with hyperglycemia (HCC) Expected: 03/10/2024, Expires: 06/09/2024 [facility] Work Phone: Comment on above: Expected: 03/10/2024, Expires: 4 Start: 03-10-2024 End: 06-09-2024 Comprehensive metabolic 2000 panel - Serum or Plasma COMP METABOLIC PANEL Lab Routine Uncontrolled type 2 diabetes mellitus with hyperglycemia (HCC) Expected: 03/10/2024, Expires: 06/09/2024 [facility] Work Phone: Comment on above: Expected: 03/10/2024, Expires: 4 Start: 03-10-2024 End: 06-09-2024 Hemoglobin A1c in Blood HGB A1C Lab Routine Uncontrolled type 2 diabetes mellitus with hyperglycemia (HCC) Expected: 03/10/2024, Expires: 06/09/2024 [facility] Work Phone: Comment on above: Expected: 03/10/2024, Expires: 4 Start: 03-10-2024 Hepatitis B surface antibody level LDL CHOLESTEROL [facility] Start: 03-10-2024 End: 06-09-2024 Lipid 1996 panel - Serum or Plasma LIPID PANEL BASIC Lab Routine Hyperlipidemia, mixed Expected: 03/10/2024, Expires: 06/09/2024 [facility] Work Phone: Comment on above: Expected: 03/10/2024, Expires: Start: 03-10-2024 End: 06-09-2024 Magnesium [Mass/volume] in Serum or Plasma MAGNESIUM Lab Routine Poor sleep Expected: 03/10/2024, Expires: 06/09/2024 [facility] Work Phone: Comment on above: Expected: 03/10/2024, Expires: Start: 03-10-2024 End: 06-09-2024 Thyrotropin [Units/volume] in Serum or Plasma TSH BLD Lab Routine Uncontrolled type 2 diabetes mellitus with hyperglycemia (HCC) Expected: 03/10/2024, Expires: 06/09/2024 [facility] Work Phone: Comment on above: Expected: 03/10/2024, Expires: Start: 03-09-2024 Hemoglobin A1c measurement HbA1C [facility] Start: 02-17-2024 Glaucoma screening Dilated Retinal Exam [facility] Start: 02-17-2024 Hepatitis C antibody, confirmatory test DILATED RETINAL EXAM [facility] Start: 12-14-2023 Hemoglobin A1c/Hemoglobin.total in Blood HbA1C [facility] Start: 12-12-2023 End: 03-12-2024 ALBUMIN/CREAT RATIO RND UR ALBUMIN/CREAT RATIO RND UR Lab Routine Uncontrolled type 2 diabetes mellitus with hyperglycemia (HCC) Expected: 12/12/2023, Expires: 03/12/2024 [facility] Work Phone: Comment on above: Expected: 12/12/2023, Expires: Start: 12-12-2023 End: 03-12-2024 Comprehensive metabolic 2000 panel - Serum or Plasma COMP METABOLIC PANEL Lab Routine Essential hypertension, benign Expected: 12/12/2023, Expires: 03/12/2024 [facility] Work Phone: Comment on above: Expected: 12/12/2023, Expires: 4 Start: 12-12-2023 End: 03-12-2024 Lipid 1996 panel - Serum or Plasma LIPID PANEL BASIC Lab Routine Essential hypertension, benign Expected: 12/12/2023, Expires: 03/12/2024 [facility] Work Phone: Comment on above: Expected: 12/12/2023, Expires: Start: 12-11-2023 3 comp foot exam completed DIABETIC FOOT EXAM [facility] Start: 12-11-2023 ANNUAL PCP TEAM CHRONIC DISEASE VISIT ANNUAL PCP TEAM CHRONIC DISEASE VISIT [facility] Start: 12-11-2023 BP CONTROLLED (<130/80) BP CONTROLLED (<130/80) [facility] Start: 12-11-2023 Diabetic foot examination Diabetic Foot Exam [facility] Start: 12-03-2023 Hepatitis B surface antibody level LDL CHOLESTEROL [facility] Start: 11-13-2023 End: 02-12-2024 Thyrotropin [Units/volume] in Serum or Plasma [facility] Work Phone: Comment on above: Expected: 11/13/2023, Expires: 4 Start: 11-13-2023 End: 02-12-2024 Thyroxine (T4) free [Mass/volume] in Serum or Plasma [facility] Work Phone: Comment on above: Expected: 11/13/2023, Expires: 4 Start: 11-13-2023 End: 02-12-2024 Triiodothyronine (T3) [Mass/volume] in Serum or Plasma [facility] Work Phone: Comment on above: Expected: 11/13/2023, Expires: 4 Start: 11-05-2023 ANNUAL PCP TEAM CHRONIC DISEASE VISIT ANNUAL PCP TEAM CHRONIC DISEASE VISIT [facility] Start: 11-05-2023 BP CONTROLLED (<130/80) BP CONTROLLED (<130/80) [facility] Start: 11-05-2023 COVID-19 VACCINE (#1) COVID-19 VACCINE (#1) [facility] Comment on above: Postponed from 03/03/1956 (Declined at t his time) Start: 11-05-2023 Hepatitis B screening URINE ALBUMIN:CREATININE RATIO [facility] Start: 11-05-2023 Pneumococcal Vaccine: 65+ (1 - PCV) Pneumococcal Vaccine: 65+ (1 - PCV) [facility] Comment on above: Postponed from 1961 (Declined at t his time) Start: 11-05-2023 Pneumococcal Vaccine: 65+ (1 of 2 - PCV) Pneumococcal Vaccine: 65+ (1 of 2 - PCV) [facility] Comment on above: Postponed from 1961 (Declined at t his time) Start: 11-05-2023 PNEUMOCOCCAL: 65+ (1 - PCV) PNEUMOCOCCAL: 65+ (1 - PCV) [facility] Comment on above: Postponed from 1961 (Declined at t his time) Start: 11-05-2023 SHINGRIX VACCINE (1 of 2) SHINGRIX VACCINE (1 of 2) [facility] Comment on above: Postponed from 2005 (Declined at t his time) Start: 11-05-2023 Urine microalbumin profile [facility] Comment on above: Postponed from 1974 (Declined at t his time) Start: 09-28-2023 Behavioral Health Screening Behavioral Health Screening [facility] Start: 09-28-2023 Depression Assessment Depression Assessment [facility] Start: 09-28-2023 zzBehavioral Health Screening zBehavioral Health Screening [facility] Start: 09-27-2023 DEPRESSION ASSESSMENT DEPRESSION ASSESSMENT [facility] Comment on above: Postponed from 09/28/2022 (Declined at t his time) Start: 09-18-2023 End: 11-18-2023 Cobalamin (Vitamin B12) [Mass/volume] in Serum or Plasma VITAMIN B12 BLOOD Lab Routine Vitamin B12 deficiency Expected: 09/18/2023, Expires: 11/18/2023 [facility] Work Phone: Comment on above: Expected: 09/18/2023, Expires: Start: 09-18-2023 End: 11-18-2023 Hemoglobin A1c in Blood HGB A1C Lab Routine Uncontrolled type 2 diabetes mellitus with hyperglycemia (HCC) Expected: 09/18/2023, Expires: 11/18/2023 [facility] Work Phone: Comment on above: Expected: 09/18/2023, Expires: 4 Start: 09-18-2023 End: 11-18-2023 Thyrotropin [Units/volume] in Serum or Plasma TSH BLD Lab Routine Acquired hypothyroidism Expected: 09/18/2023, Expires: 11/18/2023 [facility] Work Phone: Comment on above: Expected: 09/18/2023, Expires: 4 Start: 09-18-2023 End: 11-18-2023 Thyroxine (T4) free [Mass/volume] in Serum or Plasma T4 FREE/FREE THYROX Lab Routine Acquired hypothyroidism Expected: 09/18/2023, Expires: 11/18/2023 [facility] Work Phone: Comment on above: Expected: 09/18/2023, Expires: 4 Start: 09-18-2023 End: 11-18-2023 Triiodothyronine (T3) [Mass/volume] in Serum or Plasma T3 BLD Lab Routine Acquired hypothyroidism Expected: 09/18/2023, Expires: 11/18/2023 [facility] Work Phone: Comment on above: Expected: 09/18/2023, Expires: 4 Start: 09-10-2023 ANNUAL PCP TEAM CHRONIC DISEASE VISIT ANNUAL PCP TEAM CHRONIC DISEASE VISIT [facility] Start: 09-09-2023 Colonoscopy COLONOSCOPY [facility] Start: 09-09-2023 COLORECTAL CANCER SCREENING COLORECTAL CANCER SCREENING [facility] Start: 09-09-2023 Hemoglobin A1c/Hemoglobin.total in Blood HBA1C [facility] Start: 09-09-2023 Screening for malignant neoplasm of colon [facility] Start: 09-08-2023 Hepatitis B surface antibody level LDL CHOLESTEROL [facility] Start: 07-28-2023 End: 10-27-2023 POTASSIUM BLD POTASSIUM BLD Lab Routine Hypokalemia Expected: 07/28/2023, Expires: 10/27/2023 [facility] Work Phone: Comment on above: Expected: 07/28/2023, Expires: 4 Start: 07-03-2023 Patient discharge [facility] Start: 07-01-2023 Following clinical pathway protocol [facility] Start: 07-01-2023 Assessment of risk of venous thromboembolism [facility] Start: 07-01-2023 Care regimes management [facility] Start: 07-01-2023 Fall prevention [facility] Start: 07-01-2023 Incentive spirometry [facility] Start: 07-01-2023 Inhalation therapy procedure [facility] Start: 07-01-2023 Insertion of catheter into peripheral vein [facility] Start: 07-01-2023 Introduction of urinary catheter [facility] Start: 07-01-2023 Measuring intake and output [facility] Start: 07-01-2023 Notification of physician [facility] Start: 07-01-2023 Oxygen therapy [facility] Start: 07-01-2023 Providing care according to standard [facility] Start: 07-01-2023 Provision of activity privileges [facility] Start: 07-01-2023 Referral to occupational therapist [facility] Start: 07-01-2023 Referral to service [facility] Start: 07-01-2023 [facility] Start: 07-01-2023 Admission procedure [facility] Start: 06-18-2023 End: 08-18-2023 Comprehensive metabolic 2000 panel - Serum or Plasma COMP METABOLIC PANEL Lab Routine Uncontrolled type 2 diabetes mellitus with hyperglycemia (HCC) Expected: 06/18/2023, Expires: 08/18/2023 [facility] Work Phone: Comment on above: Expected: 06/18/2023, Expires: 3 Start: 06-18-2023 End: 08-18-2023 Hemoglobin A1c in Blood HGB A1C Lab Routine Uncontrolled type 2 diabetes mellitus with hyperglycemia (HCC) Expected: 06/18/2023, Expires: 08/18/2023 [facility] Work Phone: Comment on above: Expected: 06/18/2023, Expires: 3 Start: 06-18-2023 End: 08-18-2023 Lipid 1996 panel - Serum or Plasma LIPID PANEL BASIC Lab Routine Dyslipidemia Expected: 06/18/2023, Expires: 08/18/2023 [facility] Work Phone: Comment on above: Expected: 06/18/2023, Expires: 3 Start: 06-18-2023 End: 08-18-2023 Thyrotropin [Units/volume] in Serum or Plasma TSH BLD Lab Routine Acquired hypothyroidism Expected: 06/18/2023, Expires: 08/18/2023 [facility] Work Phone: Comment on above: Expected: 06/18/2023, Expires: 3 Start: 06-18-2023 End: 08-18-2023 Thyroxine (T4) free [Mass/volume] in Serum or Plasma T4 FREE/FREE THYROX Lab Routine Acquired hypothyroidism Expected: 06/18/2023, Expires: 08/18/2023 [facility] Work Phone: Comment on above: Expected: 06/18/2023, Expires: 3 Start: 06-04-2023 Hemoglobin A1c/Hemoglobin.total in Blood HBA1C [facility] Start: 05-29-2023 Influenza vaccination [facility] Start: 03-27-2023 Influenza vaccination INFLUENZA (#1) [facility] Comment on above: Postponed from 05/29/2022 (Declined at t his time) Start: 03-12-2023 End: 05-12-2023 25-hydroxyvitamin D3 [Mass/volume] in Serum or Plasma VITAMIN D 25 HYDROXY Lab Routine Vitamin D deficiency Expected: 03/12/2023, Expires: 05/12/2023 [facility] Work Phone: Comment on above: Expected: 03/12/2023, Expires: 3 Start: 03-12-2023 End: 05-12-2023 CBC panel - Blood by Automated count CBC Lab Routine Uncontrolled type 2 diabetes mellitus with hyperglycemia (HCC) Expected: 03/12/2023, Expires: 05/12/2023 [facility] Work Phone: Comment on above: Expected: 03/12/2023, Expires: 3 Start: 03-12-2023 End: 05-12-2023 Comprehensive metabolic 2000 panel - Serum or Plasma COMP METABOLIC PANEL Lab Routine Uncontrolled type 2 diabetes mellitus with hyperglycemia (HCC) Expected: 03/12/2023, Expires: 05/12/2023 [facility] Work Phone: Comment on above: Expected: 03/12/2023, Expires: 3 Start: 03-12-2023 End: 05-12-2023 Hemoglobin A1c in Blood HGB A1C Lab Routine Uncontrolled type 2 diabetes mellitus with hyperglycemia (HCC) Expected: 03/12/2023, Expires: 05/12/2023 [facility] Work Phone: Comment on above: Expected: 03/12/2023, Expires: 3 Start: 03-12-2023 End: 05-12-2023 Lipid 1996 panel - Serum or Plasma LIPID PANEL BASIC Lab Routine Uncontrolled type 2 diabetes mellitus with hyperglycemia (HCC) Dyslipidemia Expected: 03/12/2023, Expires: 05/12/2023 [facility] Work Phone: Comment on above: Expected: 03/12/2023, Expires: 3 Start: 03-12-2023 End: 05-12-2023 Thyrotropin [Units/volume] in Serum or Plasma TSH BLD Lab Routine Acquired hypothyroidism Expected: 03/12/2023, Expires: 05/12/2023 [facility] Work Phone: Comment on above: Expected: 03/12/2023, Expires: 3 Start: 03-09-2023 Hemoglobin A1c/Hemoglobin.total in Blood HBA1C [facility] Start: 02-19-2023 ANNUAL PCP TEAM CHRONIC DISEASE VISIT ANNUAL PCP TEAM CHRONIC DISEASE VISIT [facility] Start: 01-31-2023 ANNUAL PCP TEAM CHRONIC DISEASE VISIT ANNUAL PCP TEAM CHRONIC DISEASE VISIT [facility] Start: 11-13-2022 Hepatitis B screening URINE ALBUMIN:CREATININE RATIO [facility] Start: 11-11-2022 Blood chemistry [facility] Start: 11-10-2022 Blood chemistry [facility] Start: 11-09-2022 Blood chemistry [facility] Start: 11-08-2022 Blood chemistry [facility] Start: 11-07-2022 Blood chemistry [facility] Start: 11-06-2022 Blood chemistry [facility] Start: 11-05-2022 Blood chemistry [facility] Start: 11-04-2022 Patient discharge [facility] Start: 11-03-2022 Referral to vascular surgeon [facility] Start: 11-02-2022 Assessment of risk of venous thromboembolism [facility] Start: 11-02-2022 Cardiac monitoring [facility] Start: 11-02-2022 Care regimes management [facility] Start: 11-02-2022 Catheterization of vein [facility] Start: 11-02-2022 [facility] Start: 11-02-2022 Exercises [facility] Start: 11-02-2022 Implementation of planned interventions [facility] Start: 11-02-2022 Insertion of catheter into peripheral vein [facility] Start: 11-02-2022 Measuring intake and output [facility] Start: 11-02-2022 Notification of physician [facility] Start: 11-02-2022 Providing care according to standard [facility] Start: 11-02-2022 Provision of activity privileges [facility] Start: 11-02-2022 Referral to occupational therapist [facility] Start: 11-02-2022 Referral to service [facility] Start: 11-02-2022 Tobacco use cessation education [facility] Start: 11-02-2022 [facility] Start: 11-02-2022 Verification routine [facility] Start: 11-02-2022 Admission procedure [facility] Start: 11-02-2022 Following clinical pathway protocol [facility] Start: 10-23-2022 3 comp foot exam completed DIABETIC FOOT EXAM [facility] Start: 10-23-2022 ANNUAL PCP TEAM CHRONIC DISEASE VISIT ANNUAL PCP TEAM CHRONIC DISEASE VISIT [facility] Start: 10-23-2022 BP CONTROLLED (<130/80) BP CONTROLLED (<130/80) [facility] Start: 10-23-2022 COVID-19 VACCINE (#1) COVID-19 VACCINE (#1) [facility] Comment on above: Postponed from 1960 (Declined at t his time) Postponed from 03/03 (Declined at this time) Start: 10-23-2022 COVID-19 VACCINE (1) COVID-19 VACCINE (1) [facility] Comment on above: Postponed from 1960 (Declined at t his time) Start: 09-28-2022 ADVANCE DIRECTIVE DISCUSSION ADVANCE DIRECTIVE DISCUSSION [facility] Start: 09-28-2022 DEPRESSION ASSESSMENT DEPRESSION ASSESSMENT [facility] Start: 09-03-2022 End: 11-03-2022 25-hydroxyvitamin D3 [Mass/volume] in Serum or Plasma VITAMIN D 25 HYDROXY Lab Routine Vitamin D deficiency Expected: 09/03/2022, Expires: 11/03/2022 [facility] Work Phone: Comment on above: Expected: 09/03/2022, Expires: 3 Start: 09-03-2022 End: 11-03-2022 CBC W Auto Differential panel - Blood CBC + DIFF Lab Routine Dyslipidemia Expected: 09/03/2022, Expires: 11/03/2022 [facility] Work Phone: Comment on above: Expected: 09/03/2022, Expires: 3 Start: 09-03-2022 End: 11-03-2022 Comprehensive metabolic 2000 panel - Serum or Plasma COMP METABOLIC PANEL Lab Routine Dyslipidemia Expected: 09/03/2022, Expires: 11/03/2022 [facility] Work Phone: Comment on above: Expected: 09/03/2022, Expires: 3 Start: 09-03-2022 End: 11-03-2022 Hemoglobin A1c in Blood HGB A1C Lab Routine Uncontrolled type 2 diabetes mellitus with hyperglycemia (HCC) Expected: 09/03/2022, Expires: 11/03/2022 [facility] Work Phone: Comment on above: Expected: 09/03/2022, Expires: 3 Start: 09-03-2022 End: 11-03-2022 Iron and Iron binding capacity panel - Serum or Plasma IRON + TIBC Lab Routine Iron deficiency anemia, unspecified iron deficiency anemia type Expected: 09/03/2022, Expires: 11/03/2022 [facility] Work Phone: Comment on above: Expected: 09/03/2022, Expires: 3 Start: 09-03-2022 End: 11-03-2022 Lipid 1996 panel - Serum or Plasma LIPID PANEL BASIC Lab Routine Dyslipidemia Expected: 09/03/2022, Expires: 11/03/2022 [facility] Work Phone: Comment on above: Expected: 09/03/2022, Expires: 3 Start: 08-22-2022 Hemoglobin A1c/Hemoglobin.total in Blood HBA1C [facility] Start: 07-10-2022 Hepatitis C antibody, confirmatory test DILATED RETINAL EXAM [facility] Start: 05-29-2022 Influenza vaccination [facility] Start: 05-22-2022 End: 07-22-2022 Hemoglobin A1c/Hemoglobin.total in Blood HGB A1C Lab Routine Uncontrolled type 2 diabetes mellitus with hyperglycemia (HCC) Expected: 05/22/2022 (Approximate), Expires: 07/22/2022 [facility] Work Phone: Comment on above: Expected: 05/22/2022 (Approximate), Expi res: 07/22/2022 Start: 05-13-2022 Hemoglobin A1c/Hemoglobin.total in Blood HBA1C [facility] Start: 04-24-2022 Adult depression screening assessment DEPRESSION SCREENING [facility] Start: 04-16-2022 Hepatitis B surface antibody level LDL CHOLESTEROL [facility] Start: 02-21-2022 End: 04-23-2022 ALDOSTERONE/DIRECT RENIN RATIO [facility] Work Phone: Comment on above: Expected: 02/21/2022, Expires: 2 Start: 02-19-2022 End: 04-21-2022 ALDOSTERONE/DIRECT RENIN RATIO [facility] Work Phone: Comment on above: Expected: 02/19/2022, Expires: 2 Start: 02-19-2022 End: 04-21-2022 Comprehensive metabolic 2000 panel - Serum or Plasma [facility] Work Phone: Comment on above: Expected: 02/19/2022, Expires: 2 Start: 02-19-2022 End: 04-21-2022 Cortisol [Mass/volume] in Serum or Plasma [facility] Work Phone: Comment on above: Expected: 02/19/2022, Expires: 2 Start: 02-19-2022 End: 04-21-2022 Urinalysis complete panel - Urine [facility] Work Phone: Comment on above: Expected: 02/19/2022, Expires: 2 Start: 12-22-2021 HbA1c (Bld) [Mass fraction] A1C test (Diabetic or Prediabetic) [facility] Work Phone: Start: 09-28-2021 ADVANCE DIRECTIVE DISCUSSION ADVANCE DIRECTIVE DISCUSSION [facility] Start: 09-28-2021 DEPRESSION ASSESSMENT DEPRESSION ASSESSMENT [facility] Start: 05-29-2021 Influenza vaccination Flu vaccine (Season Ended) [facility] Work Phone: Start: 12-22-2020 Annual Wellness Visit (AWV) Annual Wellness Visit (AWV) [facility] Work Phone: Start: 12-09-2020 Screening for malignant neoplasm of cervix Cervical Cancer Screening [facility] Start: 2020 Pneumococcal 65+ years Vaccine (1 of 1 - PPSV23) Pneumococcal 65+ years Vaccine (1 of 1 - PPSV23) [facility] Work Phone: Start: 2020 PNEUMOVAX AGE 65 AND OVER WITH 5YR LOOKBACK (#1) PNEUMOVAX AGE 65 AND OVER WITH 5YR LOOKBACK (#1) [facility] Start: 2015 Hepatitis B Vaccine (1 of 3 - Risk 3-dose series) Hepatitis B Vaccine (1 of 3 - Risk 3-dose series) [facility] Start: 2015 RSV Vaccine (1 - 1-dose 60+ series) RSV Vaccine (1 - 1-dose 60+ series) [facility] Start: 2015 RSV Vaccine (1 - Risk 60-74 years 1-dose series) RSV Vaccine (1 - Risk 60-74 years 1-dose series) [facility] Start: 11-16-2014 Mammography [facility] Start: 11-16-2014 Screening for malignant neoplasm of breast Mammogram Screening [facility] Start: 2010 Screening for malignant neoplasm [...] of 2) SHINGRIX VACCINE (1 of 2) [facility] Start: 2000 COLOGUARD (FIT-DNA) COLOGUARD (FIT-DNA) [facility] Start: [address] COLONOGRAPHY [facility] Start: 2000 FECAL OCCULT BLOOD FECAL OCCULT BLOOD [facility] Start: 2000 Screening for malignant neoplasm of colon [facility] Start: 2000 SIGMOIDOSCOPY SIGMOIDOSCOPY [facility] Start: 1976 Screening for malignant neoplasm of cervix Cervical cancer screen [facility] Work Phone: Start: 1974 DTaP/Tdap/Td vaccine (1 - Tdap) DTaP/Tdap/Td vaccine (1 - Tdap) [facility] Work Phone: Start: 1974 Hepatitis A Vaccine (1 of 2 - Risk 2-dose series) Hepatitis A Vaccine (1 of 2 - Risk 2-dose series) [facility] Start: 1974 Pneumococcal Vaccine: 50+ (1 of 2 - PCV) Pneumococcal Vaccine: 50+ (1 of 2 - PCV) [facility] Start: 1974 Urine microalbumin profile [facility] Start: 1973 Depression Screening Depression Screening [facility] Start: 1973 Diabetic microalbuminuria test Diabetic microalbuminuria test [facility] Work Phone: Start: 1973 MMR Vaccine (1 of 2 - Risk 2-dose series) MMR Vaccine (1 of 2 - Risk 2-dose series) [facility] Start: 1971 COVID-19 Vaccine (1) COVID-19 [...] Risk (1 of 4 - Increased Risk) [facility] Start: 1961 PNEUMOCOCCAL: 65+ (1 - PCV) PNEUMOCOCCAL: 65+ (1 - PCV) [facility] Start: 03-03-1956 COVID-19 VACCINE (#1) COVID-19 VACCINE (#1) [facility] Start: 1955 Hepatitis C screening Hepatitis C screen [facility] Work Phone: ALBUMIN/CREAT RATIO RND UR ALBUMIN/CREAT RATIO RND UR Lab Routine Uncontrolled type 2 diabetes mellitus with hyperglycemia (HCC) 11/13/2023 9:31 AM EST [facility] Work Phone: Anion gap measurement [...] Microbiology Routine Vaginal itching Dysuria Ordered: 01/02/2024 [facility] Work Phone: Comment on above: Ordered: 01/02/2024 BACTERIAL VAGINOSIS NAAT BACTERI AL VAGINOSIS NAAT Lab Routine Vaginal itching Dysuria Ordered: 01/02/2024 [facility] Work Phone: Comment on above: Ordered: 01/02/2024 BUN/Creatinine ratio [facility] BUN/Creatinine ratio [facility] BUN/Creatinine ratio [facility] BUN/Creatinine ratio [facility] BUN/Creatinine ratio [facility] BUN/Creatinine ratio [facility] BUN/Creatinine ratio [facility] Calcium [Mass/volume ] in Serum or Plasma [facility] Calcium [Mass/volume ] in Serum or Plasma [facility] Calcium [Mass/volume ] in Serum or Plasma [facility] Calcium [Mass/volume ] in Serum or Plasma [facility] Calcium [Mass/volume ] in Serum or Plasma [facility] Calcium [Mass/volume ] in Serum or Plasma [facility] Calcium [Mass/volume ] in Serum or Plasma [facility] JOLANTA/TRICHOMONAS NAAT JOLANTA /TRICHOMONAS NAAT Lab Routine Vaginal itching Dysuria Ordered: 01/02/2024 [facility] Work Phone: Comment on above: Ordered: 01/02/2024 Carbon dioxide, tota l [Moles/volume] in Serum or Plasma [facility] Carbon dioxide, tota l [Moles/volume] in Serum or Plasma [facility] Carbon dioxide, tota l [Moles/volume] in Serum or Plasma [facility] Carbon dioxide, tota l [Moles/volume] in Serum or Plasma [facility] Carbon dioxide, tota l [Moles/volume] in Serum or Plasma [facility] Carbon dioxide, tota l [Moles/volume] in Serum or Plasma [facility] Carbon dioxide, tota l [Moles/volume] in Serum or Plasma [facility] Chlamydia trachomatis+Neisseria gonorrhoeae DNA [Presence] in Unspecified specimen by NELL with probe detection GONORRHEA/CHLAMYDIA NAAT Lab Routine Vaginal itching Dysuria Ordered: 01/02/2024 [facility] Work Phone: Comment on above: Ordered: 01/02/2024 Chloride [Moles/volu me] in Serum or Plasma [facility] Chloride [Moles/volu me] in Serum or Plasma [facility] Chloride [Moles/volu me] in Serum or Plasma [facility] Chloride [Moles/volu me] in Serum or Plasma [facility] Chloride [Moles/volu me] in Serum or Plasma [facility] Chloride [Moles/volu me] in Serum or Plasma [facility] Chloride [Moles/volu me] in Serum or Plasma [facility] Comprehensive metabo lic 2000 panel - Serum or Plasma COMP METABOLIC PANEL Lab Routine Essential hypertension, benign 11/13/2023 9:31 AM EST [facility] Work Phone: COVID & INFLUENZA A/ B & RSV NAAT, ROUTINE [facility] Work Phone: Creatinine [Moles/volume] in Serum or Plasma [facility] Creatinine [Moles/volume] in Serum or Plasma [facility] Creatinine [Moles/volume] in Serum or Plasma [facility] Creatinine [Moles/volume] in Serum or Plasma [facility] Creatinine [Moles/volume] in Serum or Plasma [facility] Creatinine [Moles/volume] in Serum or Plasma [facility] Creatinine [Moles/volume] in Serum or Plasma [facility] CREATININE, 24 HOUR URINE CREATININE, 24 HOUR URINE Lab Routine Abnormal results of thyroid function studies Ordered: 11/11/2024 [facility] Comment on above: Ordered: 11/11/2024 End: 02-02-2026 DBT Breast - bilateral screening LAURO SCREENING W BRAIN Radiology Routine Encounter for screening mammogram for breast cancer 1 Occurrences starting 01/03/2025 until 02/02/2026 [facility] Work Phone: Comment on above: 1 Occurrences starting 01/03/2025 until 02/02/2026 End: 02-19-2023 ECG COMPLETE ECG COMPLETE ECG Routine Uncontrolled hypertension Palpitations 1 Occurrences starting 02/19/2022 until 02/19/2023 [facility] Work Phone: Comment on above: 1 Occurrences starting 02/19/2022 until 02/19/2023 End: 02-19-2023 Echocardiography ECHO Cardiology Routine Uncontrolled hypertension Palpitations 1 Occurrences starting 02/19/2022 until 02/19/2023 [facility] Work Phone: Comment on above: 1 Occurrences starting 02/19/2022 until 02/19/2023 End: 12-21-2020 FL Greater Than 1 Hour FL Greater Than 1 Hour Imaging Routine Once for 1 Occurrences starting 12/21/2020 until 12/21/2020 [facility] Work Phone: Comment on above: Once for 1 Occurrences starting 12/22/19 until 12/21/2020 FL Greater Than 1 Hour FL Greate r Than 1 Hour Imaging Routine 12/21/2020 3:01 PM EDT [facility] Work Phone: Glucose [Mass/volume ] in Serum or Plasma [facility] Glucose [Mass/volume ] in Serum or Plasma [facility] Glucose [Mass/volume ] in Serum or Plasma [facility] Glucose [Mass/volume ] in Serum or Plasma [facility] Glucose [Mass/volume ] in Serum or Plasma [facility] Glucose [Mass/volume ] in Serum or Plasma [facility] Glucose [Mass/volume ] in Serum or Plasma [facility] Glucose [Mass/volume ] in Serum or Plasma GLUCOSE, BLOOD (POC) Lab Routine Type 2 diabetes mellitus with hyperosmolarity without coma, with long-term current use of insulin (HCC) Uncontrolled type 2 diabetes mellitus with hyperglycemia (HCC) Ordered: 04/18/2025 [facility] Work Phone: Comment on above: Ordered: 04/18/2025 Hemoglobin A1c/Hemoglobin.total in Blood HGB A1C Lab Routine Uncontrolled type 2 diabetes mellitus with hyperglycemia (HCC) 02/19/2022 12:38 PM EDT [facility] Work Phone: Lipid 1996 panel - S chayo or Plasma LIPID PANEL BASIC Lab Routine Essential hypertension, benign 11/13/2023 9:31 AM EST [facility] Work Phone: Measurement of renal function [facility] Measurement of renal function [facility] Measurement of renal function [facility] Measurement of renal function [facility] Measurement of renal function [facility] Measurement of renal function [facility] Measurement of renal function [facility] End: 03-04-2025 MG Breast Screening LAURO SCREENING Radiology Routine Encounter for screening mammogram for breast cancer 1 Occurrences starting 02/03/2024 until 03/04/2025 [facility] Work Phone: Comment on above: 1 Occurrences starting 02/03/2024 until 03/04/2025 Oxygen therapy [Mini mum Data Set] Initiate Oxygen Therapy Protocol Respiratory Care Routine Daily until discontinued starting 12/21/2020 [facility] Work Phone: Comment on above: Daily until discontinued starting 2020 Patient Education [facility] Work Phone: Patient referral [facility] Work Phone: POCT glucose [facility] Work Phone: Comment on above: 4X Daily (AC & HS) until discontinued st arting 12/21/2020 As Needed until disc ontinued starting 12/21/2020 4X Daily (AC & HS) u ntil discontinued starting 12/24/2020 Potassium [Moles/vol ume] in Serum or Plasma [facility] Potassium [Moles/vol ume] in Serum or Plasma [facility] Potassium [Moles/vol ume] in Serum or Plasma [facility] Potassium [Moles/vol ume] in Serum or Plasma [facility] Potassium [Moles/vol ume] in Serum or Plasma [facility] Potassium [Moles/vol ume] in Serum or Plasma [facility] Potassium [Moles/vol ume] in Serum or Plasma [facility] ROUTINE FLU A/B + RSV [facility] Work Phone: Comment on above: Ordered: 06/26/2023 SARS-CoV-2 (COVID-19 ) RNA [Presence] in Respiratory specimen by NELL with probe detection [facility] Work Phone: Comment on above: Ordered: 06/26/2023 End: 04-25-2023 Screening mammography bi 2-view breast inc cad LAURO SCREENING Radiology Routine Encounter for screening mammogram for breast cancer 1 Occurrences starting 03/26/2022 until 04/25/2023 [facility] Work Phone: Comment on above: 1 Occurrences starting 03/26/2022 until 04/25/2023 Sodium [Moles/volume ] in Serum or Plasma [facility] Sodium [Moles/volume ] in Serum or Plasma [facility] Sodium [Moles/volume ] in Serum or Plasma [facility] Sodium [Moles/volume ] in Serum or Plasma [facility] Sodium [Moles/volume ] in Serum or Plasma [facility] Sodium [Moles/volume ] in Serum or Plasma [facility] Sodium [Moles/volume ] in Serum or Plasma [facility] Urea nitrogen [Mass/volume] in Serum or Plasma [facility] Urea nitrogen [Mass/volume] in Serum or Plasma [facility] Urea nitrogen [Mass/volume] in Serum or Plasma [facility] Urea nitrogen [Mass/volume] in Serum or Plasma [facility] Urea nitrogen [Mass/volume] in Serum or Plasma [facility] Urea nitrogen [Mass/volume] in Serum or Plasma [facility] Urea nitrogen [Mass/volume] in Serum or Plasma [facility] URINE FREE CORTISOL BY LC-MS/MS URINE FREE CORTISOL BY LC-MS/MS Lab Routine Abnormal results of thyroid function studies Ordered: 11/11/2024 [facility] Comment on above: Ordered: 11/11/2024 End: 02-19-2023 US CAROTID ARTERIES [facility] US CAROTID ARTERIES [facility] Vascular Lab Routine Uncontrolled hypertension Palpitations 1 Occurrences starting 02/19/2022 until 02/19/2023 [facility] Work Phone: Comment on above: 1 Occurrences starting 02/19/2022 until 02/19/2023 End: 02-19-2023 US RENAL ARTERY [facility] US RENAL ARTERY [facility] Vascular Lab Routine Uncontrolled hypertension Palpitations 1 Occurrences starting 02/19/2022 until 02/19/2023 [facility] Work Phone: Comment on above: 1 Occurrences starting 02/19/2022 until 02/19/2023 End: 03-01-2023 XR ANKLE GENERAL 3V AP/LAT/OBL LEFT XR ANKLE GENERAL 3V AP/LAT/OBL LEFT Radiology Routine Closed fracture of distal end of left fibula, unspecified fracture morphology, initial encounter 1 Occurrences starting 01/30/2022 until 03/01/2023 [facility] Work Phone: Comment on above: 1 Occurrences starting 01/30/2022 until 03/01/2023 [facility] Immunizations Immunization Date Immunization Notes Care Provider Nikia moore 07-12-2018 influenza virus vacc ine, unspecified formulation Kathryn Rivero [facility]INK[facility] Work Phone: [facility] Payers Date Payer Category Payer Self-pay [id number] 2023 Medicaid [id number] 2021 Medicare [facility] MEDICARE [facility] DUAL COMPLETE HMO SNP [id number] 2021-Present [phone] [address] [place] [address] Medicare [id number] 2021 Medicare [id number] 2021 Medicare (Managed Care) 1.2. [id number] 2021 [facility] [id number] 2020 Medicare [id number] 2020 Medicaid MEDICAID [facility] MEDICAID [id number] 2020-Present [phone] [address] [place] [address] Medicaid [id number] 2020 Medicaid [id number] 1955 Unknown [id number] 2.16.840.1.509897.3.579.2.6 27 Medicare [id number] Unknown [id number] Unknown [id number] 2.16.840.1.793463.3.579.2.4 62 Unknown [id number] 2.16.840.1.232388.3.579.2.4 62 Unknown [id number] 2.16.840.1.831018.3.579.2.4 62 Unknown [id number] 2.16.840.1.497648.3.579.2.4 62 Unknown [id number] 2.16.840.1.609082.3.579.2.4 62 Unknown [id number] 2.16.840.1.397059.3.579.2.4 62 Unknown [id number] 2.16.840.1.588920.3.579.2.4 62 Unknown [id number] 2.16.840.1.900673.3.579.2.4 62 Unknown [id number] 2.16.840.1.500462.3.579.2.4 62 Unknown [id number] 2.16.840.1.088868.3.579.2.4 62 Unknown [id number] 2.16.840.1.408609.3.579.2.4 62 Unknown [id number] 2.16.840.1.233160.3.579.2.4 62 Unknown [id number] 2.16.840.1.958935.3.579.2.4 62 Unknown [id number] 2.16.840.1.416202.3.579.2.4 62 Unknown [id number] 2.16.840.1.994079.3.579.2.4 62 Unknown [id number] 2.16.840.1.558018.3.579.2.4 62 Unknown [id number] 2.16.840.1.168129.3.579.2.4 62 Unknown [id number] 2.16.840.1.115378.3.579.2.4 62 Unknown [id number] 2.16.840.1.804437.3.579.2.4 62 Unknown [id number] 2.16.840.1.538004.3.579.2.4 62 Unknown [id number] 2.16.840.1.282172.3.579.2.4 62 Unknown [id number] 2.16.840.1.596033.3.579.2.4 62 Unknown [id number] 2.16.840.1.786124.3.579.2.4 62 Unknown [id number] 2.16.840.1.279315.3.579.2.4 62 Unknown [id number] 2.16.840.1.839724.3.579.2.4 62 Unknown [id number] 2.16.840.1.478425.3.579.2.4 62 Social History Date Type Detail Facility Start: 01-11-2018 End: 12-25-2020 Tobacco smoking status NHIS Current every day smoker [facility] Start: 11-02-2002 End: 11-02-2022 History of tobacco use Cigarette Smoker Actual Experience Phone: Start: 12-25-2020 End: 03-18-2023 Cigarettes smoked current (pack per day) - Reported [facility] Work Phone: Start: 12-25-2020 End: 05-25-2024 Tobacco use and exposure Never used [facility] Work Phone: Start: 12-25-2020 Alcohol intake Ex-drinker (finding) [facility] Work Phone: Start: 1955 Sex Assigned At Not on file S [facility] Work Phone: Start: 01-13-2022 End: 02-28-2022 Exposure to SARS-CoV-2 (event) Not sure [facility] Work Phone: Start: 10-23-2021 End: 05-31-2025 Alcohol intake Current drinker of alcohol (finding) [facility] Start: 10-15-2012 End: 09-10-2022 Tobacco Comment 20+ years smoking [facility] Start: 12-30-2020 End: 07-27-2023 Tobacco smoking status [facility] Unknown if ever smoked [facility] Start: 12-28-2020 None [facility] Start: 12-28-2020 Marijuana [facility] Start: 12-28-2020 With Family [facility] Start: 12-30-2020 Cigarettes [facility] Start: 1955 Sex Assigned At Female [facility] Start: 12-10-2022 End: 05-25-2025 Tobacco smoking status NHIS Ex-smoker [facility] Work Phone: Start: 11-02-2002 End: 11-02-2022 History of tobacco use Current smoker [facility] Work Phone: Start: 03-18-2023 End: 04-30-2023 Tobacco use panel [facility] Work Phone: Start: 08-29-2012 Adult Depression Screening Assessment 0 [facility] Work Phone: Tobacco Nicotine Use: Positive smoking history. Type: Cigarettes. [facility] Tobacco smoking status [facility] Has the [employer] gas, oil, or water [employer] threatened to shut off services in your home in past 12Mo No [facility] Are you now , , , , never or living with a partner? [facility] How often to you hav e a drink containing alcohol? Never [facility] Do you feel stress - tense, restless, nervous, or anxious, or unable to sleep at night because your mind is troubled all the time - these days [OSQ] Not at all [facility] (I/We) worried whether (my/our) food would run out before (I/we) got money to buy more. Never true [facility] Start: 12-28-2024 Sex Female (finding) [facility] NEGATED: Highlighted row Not [facility] Medical Equipment Procedure Code Equipment Code Equipment Origin al Text Equipment Identifier Dates Dilation and curettage SEALANT,FLOSEAL HEMOSTATIC 5ML FDA Start: 07-26-2024 Dilation and curettage SEALANT,FLOSEAL HEMOSTATIC 5ML FDA Start: 07-26-2024 Dilation and curettage SEALANT,FLOSEAL HEMOSTATIC 5ML FDA Start: 07-26-2024 Dilation and curettage SEALANT,FLOSEAL HEMOSTATIC 5ML FDA Start: 07-26-2024 Dilation and curettage SEALANT,FLOSEAL HEMOSTATIC 5ML FDA Start: 07-26-2024 [id number], [id number], [id number], [id number], [id number], [id number], [id number], [id number], [id number] Start: 06-24-2013 End: 06-15-2024 Comment on above: [...] Assessment Result Facility 12-28-2024 Functional status Ambulates [facility] Work Phone: 11-25-2023 Functional Status Ambulation in Room [facility] 07-03-2023 Functional status Ambulates;Bath room Privilege [facility] Work Phone: 11-04-2022 Functional status Ambulates;Up ad sandi [facility] Work Phone: 10-25-2014 Are you deaf, or do you have serious difficulty hearing No 10/25/2014 5:51 PM Susan Manzano MA No [facility] 10-25-2014 Are you blind, or do you have serious difficulty seeing, even when wearing glasses No 10/25/2014 5:51 PM Susan Manzano MA No [facility] 10-25-2014 Do you have serious difficulty walking or climbing stairs No 10/25/2014 5:51 PM Susan Manzano MA No [facility] 10-25-2014 Do you have difficul ty dressing or bathing No 10/25/2014 5:51 PM Susan Manzano MA No [facility] 10-25-2014 Because of a physica l, mental, or emotional condition, do you have difficulty doing errands alone such as visiting a physician's office or shopping No 10/25/2014 5:51 PM Susan Manzano MA No [facility] Mental Status Date Assessment Result Facility 04-15-2025 Cognitive function Level Of Cons ciousness Awake;Follows [facility] Work Phone: 12-28-2024 Cognitive function Level Of Cons ciousness Awake;Alert;Appropriate;Fol lows Commands [facility] Work Phone: 12-28-2024 Cognitive function Voice/Name [facility] Work Phone: 11-25-2023 Mental Status Oriented x 4 [facility] 07-03-2023 Cognitive function Voice/Name [facility] Work Phone: 11-04-2022 Cognitive function Voice/Name [facility] Work Phone: 10-25-2014 Because of a physica l, mental, or emotional condition, do you have serious difficulty concentrating, remembering, or making decisions No 10/25/2014 5:51 PM Susan Manzano MA No [facility] Clinical Notes 10-12-2018 to 06-21-2025 Telephone Encounter - Liz Richards LPN - 05/31/2025 1:27 PM EDTTelephone Encounter - Liz Richards LPN - 05/31/2025 1:27 PM Preet Hernandez DO - 05/31/2025 11:52 AM EDT Note Date & Type Note Facility 06-21-2025 Progress note [facility] 05-31-2025 Telephone encounter Note Images from the original note were not included. Electronic PA rec'd and completed for trulicity 3mg. This was approved. Prior authorization approved Payer: [employer] P[employer] Part D [id number] Note from payer: This medication or product was previously approved on [id number] from 2024-12-14 to 2025-09-27. Please note: This request was submitted electronically. Formulary lowering, tiering exception, cost reduction and/or pre-benefit determination review (including prospective Medicare hospice reviews) requests cannot be requested using this method of submission. Providers contact us at for further assistance. - Prescriber details have been updated to match the prescriber directory. Electronic appeal: Not supported Prior auth initiated by: Preet Farrar, DO View History Medication Being Authorized dulaglutide (TRULICITY) 3 mg/0.5 mL pen injector Inject 3 mg subcutaneously one time a week. Dispense: 6 mL Refills: 3 Start: 05/31/2025 Class: Normal Diagnoses: Uncontrolled type 2 diabetes mellitus with hyperglycemia (HCC) [E11.65] This order has been released to its destination. To be filled at: [facility] [address] [place] [address] [address] [facility] - [phone] [facility] 05-31-2025 Miscellaneous Notes Images from the original note were not included. Electronic PA rec'd and completed for trulicity 3mg. This was approved. Prior authorization approved Payer: [employer] Part D [id number] Note from payer: This medication or product was previously approved on [id number] from 2024-12-14 to 2025-09-27. Please note: This request was submitted electronically. Formulary lowering, tiering exception, cost reduction and/or pre-benefit determination review (including prospective Medicare hospice reviews) requests cannot be requested using this method of submission. Providers contact us at for further assistance. - Prescriber details have been updated to match the prescriber directory. Electronic appeal: Not supported Prior auth initiated by: Preet Farrar DO View History Medication Being Authorized dulaglutide (TRULICITY) 3 mg/0.5 mL pen injector Inject 3 mg subcutaneously one time a week. Dispense: 6 mL Refills: 3 Start: 05/31/2025 Class: Normal Diagnoses: Uncontrolled type 2 diabetes mellitus with hyperglycemia (HCC) [E11.65] This order has been released to its destination. To be filled at: [facility] [address] [place] [address] [address] - [phone] documented in this encounter [facility] 05-31-2025 Note HNO ID: [id number] Author: PREET FARRAR DO Service: ? Author Type: Physician Type: Progress Notes Filed: 06/05/2025 08:51 Note Text: Patient presents with: F/U 3 Month HPI: Deonte Balnco is a 69 year old female who presents to the office today for review of health conditions. Concerns today: She is going to be seeing Clinical Trial Leader Dr. Johnson at [facility] for opinion regarding her diabetes- she is currently taking Lantus once a day in AM, as well as Trulicity 1.5 mg once a week SQ. She is now using CGM which is helping her determine food triggers- she is continuing to work on adjusting this. Recently had situation of a vaginal bleed after intercourse with her boyfriend. Was seen by LEARNING COORDINATOR for this condition in the ER Ms. Blanco has past history of diabetes. [...] HgA1C was Hemoglobin A1C (%) Date Value 05/23/2025 8.2 03/22/2025 8.0 11/13/2021 6.3 04/16/2021 6.3 Hemoglobin A1C (POCT) (%) Date Value 01/06/2024 6.5 ) Last Ophthalmology exam was within the past 12 months Ms. Blanco reports history of hyperlipidemia. Current therapy includes atorvastatin (Lipitor) 40 mg. Denies side effects of muscle weakness or achiness. Her most recent lipid panels are reviewed. Cholesterol, Total (mg/dL) Date Value 05/23/2025 111 04/16/2021 193 HDL Cholesterol (mg/dL) Date Value 05/23/2025 55 04/16/2021 58 LDL Cholesterol, Calculated (mg/dL) Date Value 05/23/2025 38 04/16/2021 91 Triglyceride (mg/dL) Date Value 05/23/2025 96 04/16/2021 222 Ms. Blanco indicates a history of hypertension and states that she is feeling well and denies any symptoms referable to elevated blood pressure. Specifically denies headache, chest pain, palpitations, dyspnea, and peripheral edema. Patient denies any side effects of her medication(s) and is compliant with their regimen. Last 3 Encounter BP Readings: Date: BP: 05/31/2025 136/80 04/18/2025 120/70 03/22/2025 140/70 She watches her diet for sodium, low [...] FLP TUBE ABDL/VAG APPR UNI/BI Tubal ligation SOCIAL HISTORY[1] FAMILY HISTORY Problem Relation Age of Onset Cervical Cancer Sister Diabetes Father Psychiatry Mother Hypertension Father Heart Mother Heart Father Alzheimer's Disease Mother Breast Cancer Sister Allergies: ALLERGIES Allergen Reactions Asa [Salicylates] Hives, GI Upset As a child Gluten Intolerance Metformin GI Upset, Itching Prednisone Itching Sulfa (Sulfonamide * Rash Current Meds: clopidogrel (PLAVIX) 75 mg tablet Take 1 tablet by mouth once daily. ARMOUR THYROID 30 mg tablet Take 1 tablet by mouth every Thursday, Thursday, and Thursday. In the morning. (Take this is addition to the 120 mg armor thyroid) Blood-Glucose Meter,Continuous (DEXCOM G6 CLAM PICKER) [facility] Use to check blood sugar at least four (4) times daily. Blood-Glucose Transmitter (DEXCOM G6 TRANSMITTER) jerome Apply new transmitter every 90 days. Clean transmitter with an alcohol swab with each sensor change. Blood-Glucose Sensor (DEXCOM G6 SENSOR) jerome Apply new sensor every ten (10) days to abdomen. insulin glargine (LANTUS SOLOSTAR U-100 INSULIN) 100 unit/mL (3 mL) Inject 25 Units subcutaneously every morning. blood sugar diagnostic (BLOOD GLUCOSE TEST) test strip Test blood sugar(s) 4 times daily. Dx: Type 2 DM - Controlled E11.9 Insulin: Yes Lancets Test blood sugar(s) 4 times daily. Dx: Type 2 DM - Controlled E11.9 Insulin: Yes ondansetron orally disintegrating (ZOFRAN ODT) 4 mg disintegrating tablet Take 1 tablet by mouth every 8 hours as needed for nausea/vomiting. atorvastatin (LIPITOR) 40 mg tablet Take 1 ta (more content not included)... [facility] 05-31-2025 History of Present illness Narrative Patient presents with: F/U 3 Month HPI: Deonte Blanco is a 69 year old female who presents to the office today for review of health conditions. Concerns today: She is going to be seeing Clinical Trial Leader Dr. Johnson at [facility] for opinion regarding her diabetes- she is currently taking Lantus once a day in AM, as well as Trulicity 1.5 mg once a week SQ. She is now using CGM which is helping her determine food triggers- she is continuing to work on adjusting this. Recently had situation of a vaginal bleed after intercourse with her boyfriend. Was seen by LEARNING COORDINATOR for this condition in the ER Ms. Blanco has past history of diabetes. [...] HgA1C was Hemoglobin A1C (%) Date Value 05/23/2025 8.2 03/22/2025 8.0 11/13/2021 6.3 04/16/2021 6.3 Hemoglobin A1C (POCT) (%) Date Value 01/06/2024 6.5 ) Last Ophthalmology exam was within the past 12 months Ms. Blanco reports history of hyperlipidemia. Current therapy includes atorvastatin (Lipitor) 40 mg. Denies side effects of muscle weakness or achiness. Her most recent lipid panels are reviewed. Cholesterol, Total (mg/dL) Date Value 05/23/2025 111 04/16/2021 193 HDL Cholesterol (mg/dL) Date Value 05/23/2025 55 04/16/2021 58 LDL Cholesterol, Calculated (mg/dL) Date Value 05/23/2025 38 04/16/2021 91 Triglyceride (mg/dL) Date Value 05/23/2025 96 04/16/2021 222 Ms. Blanco indicates a history of hypertension and states that she is feeling well and denies any symptoms referable to elevated blood pressure. Specifically denies headache, chest pain, palpitations, dyspnea, and peripheral edema. Patient denies any side effects of her medication(s) and is compliant with their regimen. Last 3 Encounter BP Readings: Date: BP: 05/31/2025 136/80 04/18/2025 120/70 03/22/2025 140/70 She watches her diet for sodium, low [...] FLP TUBE ABDL/VAG APPR UNI/BI Tubal ligation SOCIAL HISTORY[1] FAMILY HISTORY Problem Relation Age of Onset Cervical Cancer Sister Diabetes Father Psychiatry Mother Hypertension Father Heart Mother Heart Father Alzheimer's Disease Mother Breast Cancer Sister Allergies: ALLERGIES Allergen Reactions Asa [Salicylates] Hives, GI Upset As a child Gluten Intolerance Metformin GI Upset, Itching Prednisone Itching Sulfa (Sulfonamide * Rash Current Meds: clopidogrel (PLAVIX) 75 mg tablet Take 1 tablet by mouth once daily. ARMOUR THYROID 30 mg tablet Take 1 tablet by mouth every Thursday, Thursday, and Thursday. In the morning. (Take this is addition to the 120 mg armor thyroid) Blood-Glucose Meter,Continuous (DEXCOM G6 CLAM PICKER) misc Use to check blood sugar at least four (4) times daily. Blood-Glucose Transmitter (DEXCOM G6 TRANSMITTER) jerome Apply new transmitter every 90 days. Clean transmitter with an alcohol swab with each sensor change. Blood-Glucose Sensor (DEXCOM G6 SENSOR) jerome Apply new sensor every ten (10) days to abdomen. insulin glargine (LANTUS SOLOSTAR U-100 INSULIN) 100 unit/mL (3 mL) Inject 25 Units subcutaneously every morning. blood sugar diagnostic (BLOOD GLUCOSE TEST) test strip Test blood sugar(s) 4 times daily. Dx: Type 2 DM - Controlled E11.9 Insulin: Yes Lancets Test blood sugar(s) 4 times daily. Dx: Type 2 DM - Controlled E11.9 Insulin: Yes ondansetron orally disintegrating (ZOFRAN ODT) 4 mg [...] mouth two times a week. carvedilol (COREG) 6.25 mg tablet Take 1 tablet by mouth two times a day with meals. blood sugar diagnostic (ONETOUCH VERIO TEST STRIPS) test strip Test blood sugar(s) 4 times daily. Dx: Type 2 DM - Uncontrolled E11.65 Insulin: Yes Insulin Peyton, Disposable, (BD ULTRA-FINE MARIA T PEN NEEDLE) [...] the review of systems is negative. PE: 05/31/25 1116 BP: 136/80 Pulse: 84 Temp: 36.4 C (97.6 F) TempSrc: Right Tympanic SpO2: 98% Weight: 83.5 kg (184 lb) Gen: A&O, NAD, non-toxic appearing, Pleasant, cooperative HEENT: NT/AC, PERRLA, EOMs intact b/l, nares clear and patent b/l, pharynx without erythema, exudate or lesions. MMM, Uvula midline. EACs without erythema or debris. TMs pearly zamarripa with intact landmarks b/l. Neck: supple, No cervical LAD, no thyromegaly, no carotid bruits CV: RRR, normal S1 and S2, no murmurs, no gallops, no rubs, Pulses 2+ and symmetric in UE and LE b/l Lungs: normal respiratory effort, CTA b/l, no wheezing or rhonchi or rales Abd: soft,overweight, NT, ND, +BS, no hepatosplenomegaly MS: arthritis changes Neuro: CN II-XII intact b/l, strength 5/5 b/l UE and LE, DTRs 2/4 UE and LE, sensation intact. Skin: warm, dry, intact, No rashes or lesions on exposed skin. Foot exam: Monofilament wnl on right and left feet. No edema, normal peripheral pulses ASSESSMENT/PLAN: 1. Uncontrolled type 2 diabetes mellitus with hyperglycemia (HCC) - ICD9: 250.02, ICD10: E11.65 (primary diagnosis) - Uncontrolled - Improving control - Increase dulaglutide (Trulicity) - Blood glucose monitoring on a continuous glucose monitoring schedule - Counseled on healthy diet and regular exercise - DULAGLUTIDE 3 MG/0.5 ML SUBCUTANEOUS PEN INJECTOR 2. Acquired hypothyroidism - ICD9: 244.9, ICD10: E03.9 - Instructed patient on importance of taking on an empty stomach either first thing in the morning or at bedtime. - continue current dose of thyroid hormone 3. Hyperlipidemia, mixed - ICD9: 272.2, ICD10: E78.2 - Uncontrolled - Continue current medications - Counseled on healthy diet and regular exercise - Discussed need for and benefit of weight loss. BMI 35.65 kg/(m^2) 4. Essential hypertension, benign - ICD9: 401.1, ICD10: I10 - Controlled - Continue current medications - Recommend home blood pressure monitoring, to bring results to next visit - Encouraged sodium restriction, DASH or Mediterranean diet - Recommend regular aerobic exercise 5. Obesity, Class II, BMI 35-39.9 - ICD9: 278.00, ICD10: E66.812 Stable - Behavioral intervention, - Eat well program, and - Continue current medications Preet Farrar, DO To ER if develops chest pain, shortness of breath, or severe worsening of symptoms. Discussed risks, benefits, alternatives, and potential side effects of medications. Patient expressed understanding and agreed with the plan. Preet Farrar DO [address] [place] [address] [1] Social History Tobacco Use Smoking status: Former Current packs/day: 0.00 Average packs/day: 0.5 packs/day for 20.0 years (10.0 ttl pk-yrs) Types: Cigarettes Start date: 11/02/2002 Quit date: 11/02/2022 Years since quittin.5 Smokeless tobacco: Never Substance Use Topics Alcohol use: Yes Drug use: Yes Types: Marijuana documented in this encounter [facility] 05-25-2025 Discharge summary [facility] 05-25-2025 Discharge summary Note Date/Time May 25, 2025 11:40pm [facility] Medical Records Department [address] [place] [address] Emergency Department Summary 05/25/25 MR#: [id number] Acct: [id number] Name: DEONTE BLANCO Rep #:[id number] : 1955 69 From: Berry Waldrop MD PCP: Dr. Preet Farrar DO Status:RE G ER Location: ED HPI HPI - Female History of Present Illness Chief Complaint: Vag Bleeding Informant: patient Bleeding Issue: Positive for Vaginal bleeding Onset: Today Context: Sudden Onset Timing: Intermittent Current Severity: Similar to period Associated Symptoms Sexually: Positive for Active Narrative Narrative: 69-year-old female history of diabetes, on Plavix due to prior stroke. Patient hysterectomy December 27. She had not had intercourse for months she is not having intercourse again in the last 5 weeks. She has had some intermittent spotting after intercourse. She had intercourse today around 330. Said afterwards she had heavier bleeding with clots. Denies any pelvic pain. Prior similar symptoms: No Recent Illness/Hospitalization: No PFSH PFSH Medical History Cardiology follow-up encounter History [...] PO MOWEFR 07/21/24 0 12/26/24 08:00 History (Wray Thyroid) insulin glargine 100 unit/mL (3 25 unit subcut DAILY 0 12/12/24 12/26/24 10:00 History mL) subcutaneous pen (Lantus Solostar U-100 Insulin) spironolactone 25 mg tablet 25 mg PO BID 12/12/2411/28 20:00 History elderberry fruit 200 mg capsule 2,000 mg PO DAILY 11/2612/26/24 08:00 History atorvastatin 40 mg tablet 40 mg PO QDAY #90 tabs 01/26 Unknown Rx glimepiride 2 mg tablet 2 mg PO BID 01/26/25 Unknown History dulaglutide 1.5 mg/0.5 mL 1.5 mg subcut FR 04/15/25 Un known [facility] Allergy/AdvReac Type Severity Reaction Status Date / Time metformin Allergy Severe Hives Verified 05/25/25 21:43 prednisone Allergy Intermediate Itching Verified 05/25/25 21:43 aspirin Allergy mouth Verified 05/25/25 21:43 swelling gluten Allergy Abd Verified 05/25/25 21:43 cramps/diarrhea ibuprofen Allergy mouth Verified 05/25/25 21:43 swelling Sulfa (Sulfonamide Allergy pt can't Verified 05/25/25 21:43 Antibiotics) remember Family History Mother Heart disease [...] home: Yes ROS ROS ED ROS Narrative Denies recent illness. Constitutional Constitutional ED: Denies chills Eyes Eyes: Denies blurry vision ENT ENT ED: Denies ear pain Cardiovascular Cardiovascular: Denies chest pain Respiratory/Chest Respiratory/Chest: Denies cough or dyspnea Gastrointestinal Gastrointestinal: Denies abdominal pain, diarrhea, nausea or vomiting Genitourinary Genitourinary ED: Denies dysuria, hematuria or urinary frequency Musculoskeletal Musculoskeletal: Denies arthralgias, myalgias or neck pain Integumentary Denies abscess, Abrasions or rash Neurologic Neurologic: Denies headache(s) Psychiatric Psychiatric: Denies anxiety or depression Endocrine Endocrinology: Denies heat intolerance Hematologic/Lymphatic Hematologic/Lymphatic: Denies easy bleeding, easy bruising or lymphadenopathy Allergic/Immunologic Allergic/Immunologic ED: Denies mouth swelling, tongue swelling or urticaria EXAM Physical Exam Narrative Exam Narrative: 69-year-old female sitting upright in bed vital signs stable afebrile. No acutedistress. H EENT exam pupils round reactive light. Moist Brody membranes. Neck nontender. Lungs clear equal and symmetrical bilaterally. Heart regular rhythm rate about 100 no murmur. Chest wall and ribs nontender. Abdomen soft nontender. Moving all 4 extremities. Nontender no edema. Back nontender. Neurologically she is awake alert. Answering questions following commands. Pelvic exam with the nurse present in the room patient has vaginal bleeding withclots on speculum exam. There appears to be an area in the back of her vaginal area along the cuff that has a tear. Currently the bleeding is not heavy. Const Vital Signs: 05/25/25 21:39 Temperature 98.2 F Temperature Source Temporal Pulse Rate 100 Respiratory Rate 18 Blood Pressure 164/104 H Blood Pressure Mean 124 Pulse Ox 97 Oxygen Delivery Method Room Air Positive well nourished and well developed; Negative for cachectic, contracturesor unkempt General Appearance ED: well developed; Negative for unkempt, cachectic, contractures or pallor Nutritional Appearance: Negative for cachectic HEENT Reports moist mucous membranes Eyes PERRL and EOMs intact bilaterally General Eye ED: Negative for pale conjunctiva or scleral icterus Neck no lymphadenopathy, supple and no JVD Chest Wall inspection of chest normal and palpation of chest normal Resp normal respiratory effort and clear to auscultation bilaterally Cardio regular rate, regular rhythm, S1 normal heart sound, no murmurs and no JVD GI normal to inspection, nondistended, normoactive bowel sounds, soft to palpation,non-tender, non-distended and no masses Auscultation: normoactive bowel sounds Palpation: Negative for tender, guarding, rigid or hepatomegaly Back/Spine no CVA tenderness General Back: Negative for CVA tenderness Cervical Spine: Negative for cervical spine tenderness Thoracic Spine / Upper Back: Negative for thoracic spinal tenderness Lumbar Spine / Lower Back: Negative for lumbar spinal tenderness Sacrum: Negative for other Extremity normal to inspection Neuro oriented x3 and CN's II-XII intact bilaterally Sensorium / Orientation: alert, oriented to person, oriented to place and oriented to time Motor Exam: strength 5/5 throughout Psych mental status grossly normal Appearance: Negative for unkempt Skin no rashes or lesions noted and no wounds General Skin Exam: Negative for jaundice or pallor Rashes: No rashes noted Trauma: Negative for other MDM MDM MDM Narrative Medical decision making narrative: 69-year-old female with vaginal bleeding post intercourse tonight. Had a hysterectomy in December. Patient is on Plavix due to her prior stroke. I spoke to Dr. Anushka Isaac patient's network and threat support specialist who did her hysterectomy. We discussed the patient's exam she will be in evaluate the patient concern for a vaginal tear. History & Record Review Discussion w/independent historian: Patient Additional record(s) reviewed:: Prior outpatient record, Prior ED visit and Prior labs Discharge Plan Triage Chief Complaint: Vag Bleeding ED Provider: Berry Waldrop Dx/Rx/DC Orders Clinical Impression: Tear of vaginal vault, Vaginal bleeding, History of hysterectomy Instructions: ED Vaginal Tear (Non-Obstetric) Prescriptions: No Action glimepiride 2 mg tablet 2 mg PO BID atorvastatin 40 mg tablet 40 mg PO [...] Insulin] 100 unit/mL (3 mL) insulin pen 25 unit subcut DAILY thyroid (pork) [Wray Thyroid] 30 mg tablet 30 mg PO MOWEFR elderberry fruit 200 mg capsule 2,000 mg PO DAILY Trulicity 1.5 mg/0.5 mL pen injector 1.5 mg subcut FR Primary Care Provider: Preet Farrar Referrals: Preet Farrar DO [Primary Care Provider] - Print Language: Finnish What to do if you have Problems For any increased pain, shortness of breath, bleeding, nausea or vomiting, chestpain, or any unexpected problems, contact your Primary Care Provider. Call [facility] ([phone]) or report to the closest Emergency Room. Call 911 if necessary. 05/25/25 8778 <Electronically signed by Berry Waldrop MD> Cosigner Signature (if applicable): CC: Dr. Preet Farrar, DO ~ Signed ADDENDUM by Dr. Berry Waldrop MD on 05/25/[address] Anushka Isaac came in and evaluated the patient. Applied Monsel solution to the vaginal tear. Bleeding was controlled. Patient be discharged to home with outpatient follow-up in our office. 05/25/25 2340<Electronically signed by Berry Waldrop MD> Cosigner Signature (if applicable): cc: Dr. Preet Farrar DO ~* Signed [facility] Work Phone: 1(164) 201-670008-18-2025 Telephone encounter Note* Telephone Encounter - Lisa Aparicio RN - 05/15/2025 9:16 AM EDT Patient calls and states that she has [...] Aparicio RN May 15, 2025 9:17 AM [facility]08-18-2025 Miscellaneous Notes* Telephone Encounter - Lisa Aparicio RN - 05/15/2025 9:16 AM EDT Patient calls and states that she has [...] 15, 2025 9:17 AM documented in this encounterOhio[facility] Telephone encounter Note * Telephone Encounter - Gini Martinez LPN - 04/27/2025 1:51 PM EDT Line busy will need to try back again. [facility]07-31-2025 Miscellaneous Notes* Telephone Encounter - Gini Martinez LPN - 04/27/2025 1:51 PM EDT Line busy will need to try back again. * Telephone Encounter - Gini Martinez LPN - 04/27/2025 1:50 PM EDT ----- Message from Liliana Bennett APRN.DIRECTOR STATISTICAL PROGRAMMING sent at 04/27/2025 12:13 PM EDT ----- [...] the labs. Thank you documented in this encounterOhio[facility]25 Telephone encounter Note * Telephone Encounter - Gini Martinez LPN - 04/27/2025 1:50 PM EDT ----- Message from Liliana Bennett APRN.CNP sent [...] have recheck of the labs. Thank you [facility]07-23-2025 Telephone encounter Note* Telephone Encounter - Laurie Sanderson DO - 04/19/2025 5:50 PM EDT The following approved medication requests have been transmitted electronically. Requested Prescriptions Signed Prescriptions Disp Refills ARMOUR THYROID 30 mg tablet 36 tablet 1 Sig: Take 1 tablet by mouth every Thursday, Thursday, and Thursday. In the morning. (Take this is addition to the 120 mg armor thyroid) Authorizing Provider: LAURIE SANDERSON DO [facility]07-23-2025 Telephone encounter Note* Telephone Encounter - Laurie Sanderson DO - 04/19/2025 5:50 PM EDT The following approved medication requests have been transmitted electronically. Requested Prescriptions Signed Prescriptions Disp Refills ARMOUR THYROID 30 mg tablet 36 tablet 1 Sig: Take 1 tablet by mouth every Thursday, Thursday, and Thursday. In the morning. (Take this is addition to the 120 mg armor thyroid) Authorizing Provider: LAURIE SANDERSON DO [facility]07-23-2025 Miscellaneous Notes* Telephone Encounter - Laurie Sanderson DO - 04/19/2025 5:50 PM EDT The following approved medication requests have been transmitted electronically. Requested Prescriptions Signed Prescriptions Disp Refills ARMOUR THYROID 30 mg tablet 36 tablet 1 Sig: Take 1 tablet by mouth every Thursday, Thursday, and Thursday. In the morning. (Take this is addition to the 120 mg armor thyroid) Authorizing Provider: LAURIE SANDERSON DO * Telephone Encounter - Laurie Sanderson DO - 04/19/2025 5:50 PM EDT The following approved medication requests have been transmitted electronically. Requested Prescriptions Signed Prescriptions Disp Refills ARMOUR THYROID 30 mg tablet 36 tablet 1 Sig: Take 1 tablet by mouth every Thursday, Thursday, and Thursday. In the morning. (Take this is addition to the 120 mg armor thyroid) Authorizing Provider: LAURIE SANDERSON DO * Telephone Encounter - Suzanna Coffey RN - 04/19/2025 11:56 AM EDT Pt reports she is out of this medication and needs it sent to [facility]. Sending to [facility] for Dr. Farrar. Last ov in pcp office: 04/18/25 Next ov in pcp office: 05/31/25 Last TSH @ [facility] on 12/15/24: 0.836 (0.300-4.200) Last T4 free direct @ [facility] on 12/15/24: 0.80 (0.76-1.46) documented in this encounterOhio[facility]07-[facility] Telephone encounter Note * Telephone Encounter - Suzanna Coffey RN - 04/19/2025 11:56 AM EDT Pt reports she is out of this medication and needs it sent to [facility]. Sending to [facility] for Dr. Farrar. Last ov in pcp office: 04/18/25 Next ov in pcp office: 05/31/25 Last TSH @ [facility] on 12/15/24: 0.836 (0.300-4.200) Last T4 free direct @ [facility] on 12/15/24: 0.80 (0.76-1.46) [facility]07-22-2025 History of Present illness Narrative* Liliana Bennett APRN.DIRECTOR STATISTICAL PROGRAMMING - 04/18/2025 8:20 AM EDT This is a 69 year old [...] over her dose history with her, showing 4- 6unit increases at month-3month increments - Interested in using a continuous glucose monitor (CGM) as she has extreme anxiety over her blood sugars and is terried of doing too much and being low and living alone - discussed labs in hospital, vital signs Hyponatremia: - Chronic low sodium levels; managed by Dr. Overton, a hypertension specialist in [place] who she sees annually and recently saw [...] visit: Discharge Summary Note Author Berry Waldrop [facility] Note Date/Time April 15, 2025 7:16pm [...] meals HTN Controlled usually, was elevated at clinic lead and ER visit Likely also triggered by [...] DM - Uncontrolled E11.65 Insulin: Yes Insulin Peyton, Disposable, (BD ULTRA-FINE MARIA T PEN NEEDLE) [...] family that goes there - DEXCOM G6 CLAM PICKER- Deonte would benefit from having tighter control of her blood sugars as well asless anxiety and stress related to the constant [...] only eating what she's supposed to. 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 [...] which included preparing to see the patient, [id number] patient care, completing clinical documentation, obtaining and/or reviewing separately obtained history, performing a medically appropriate examination, counseling and educating the pat ient/family/caregiver, ordering medications, tests, or procedures, communicating results to the patient/family/caregiver, and care coordination (not separately reported). Return to the office as scheduled or as needed for worsening/no improvement. Liliana Bennett APRN.DIRECTOR STATISTICAL PROGRAMMING Recording using Cloudfinder software for draft documentation of the visit was discussed with the patient/authorized sales representative jewelry; all questions welcomed and answered. Patient/authorized sales representative jewelry agreed to proceed documented in this encounterOhiohealth [facility]07-[facility]-2025 NoteHNO ID: [id number] Author: LILIANA BENNETT APRN.DEREK Service: ? Author [...] by Dr. Overton, a hypertension specialist in [place] who she sees annually and recently saw [...] visit: Discharge Summary Note Author Berry Waldrop [facility] Note Date/Time April 15, 2025 7:16pm [...] meals HTN Controlled usually, was elevated at clinic lead and ER visit Likely also triggered by [...] 19cm mesh LAPAROSCOPY SURG CHOLECYSTECTOMY 03/01/2007 Lap Mray with visiport RUQ insertion LIG/TRNSXJ FLP TUBE [...] by mouth once malcolm (more content not included)...[facility]07-22-2025 Instructions* Patient Instructions* Liliana Bennett APRN.CNP - 04/18/2025 8:19 AM EDT Get labs done on way out today Start the 25 units of lantus daily Continue monitoring and logging your blood sugars Watch drinking the electrolytes packets specifically potassium in it Get your mammogram scheduled documented in this encounterOhio[facility]07-[facility]-2025 Telephone encounter Note * Telephone Encounter - Josie Starks RN - 04/17/2025 11:56 AM EDT PANCHO for appt previously scheduled for 04/18/2025. Patient [...] from 04/16/2025 as well. Josie Starks RN [facility]07-21-2025 Miscellaneous Notes* Telephone Encounter - Josie Starks RN - 04/17/2025 11:56 AM EDT FYI for appt previously scheduled for 04/18/2025. [...] well. Josie Starks RN documented in this encounterOhio[facility]07-[facility]-2025 Telephone encounter Note * Telephone Encounter - Darline Ng RN - 04/16/2025 12:07 PM EDT Reason for Call: Elevated blood sugar Outcome: Patient was conferenced to [facility] in Appointment Center for PCP scheduling within 24 hours and was advised to go to Urgent Care, if needed. Reason for Disposition [1] Blood glucose > 300 mg/dL (16.7 mmol/L) AND [2] uses insulin (e.g., insulin- dependent, all people with type 1 diabetes) [1] [...] am, took Zofran at 0800 with relief, tooka couple bites of baked potato, 3-4 bites of ham/cheese rollup, sips of coffee, bouillon and protein shake, forgetful a little bit, and a little bit dizzy which is normal for her when sugar is high 9. : n/a; postmenopausal Protocols used: Diabetes - High Blood [id number] [facility]07-20-2025 Miscellaneous Notes* Telephone Encounter - Darline Ng RN - 04/16/2025 12:07 PM EDT Reason for Call: Elevated blood sugar Outcome: Patient was conferenced to [facility] in Appointment Center for PCP scheduling within 24 hours and was advised to go to Urgent Care, if needed. Reason for Disposition [1] Blood glucose > 300 mg/dL (16.7 mmol/L) AND [2] uses insulin (e.g., insulin- dependent, all people with type 1 diabetes) [1] [...] am, took Zofran at 0800 with relief, tooka couple bites of baked potato, 3-4 bites of ham/cheese rollup, sips of coffee, bouillon and protein shake, forgetful a little bit, and a little bit dizzy which is normal for her when sugar is high 9. : n/a; postmenopausal Protocols used: Diabetes - High Blood [id number] documented in this encounterOhiohealth [facility]07-19-2025 Discharge summary [facility] Medical Records Department [address] [place] [address] Emergency Department Summary 04/15/25 MR#: [id number] Acct: [id number] Name: DEONTE BLANCO Rep #:[id number] : 1955 69 From: Berry Waldrop MD PCP: Dr. Preet Farrar DO Status:RE G ER Location: ED ADDENDUM [...] she was discharged home in stable condition. 04/15/251914 Cosigner Signature (if applicable): cc: Dr. Preet Farrar, DO ~* Signed HPI History of Present [...] similar symptoms: Yes Recent Illness/Hospitalization: No PFSH PFSH Medical History Cardiology follow-up encounter History [...] PO MOWEFR 07/21/24 0 12/26/24 08:00 History (Wray Thyroid) insulin glargine 100 unit/mL (3 20 [...] are stable afebrile. Does not look septic ortoxic. No acute distress. Family member at bedside. [...] rashes. No redness or warmth. Back nontender. Well- healed prior lumbar surgical incision. Neurologically she is [...] to inspection, nondistended, normoactive bowel sounds, non-tender, non- distended and no masses Auscultation: normoactive bowel sounds [...] 81.4 H Lymph % (Auto) 10.8 L [place] % (Auto) 6.5 Eos % (Auto) 0.2 [...] Sl. Cloudy Urine pH 6.0 Ur Specific [place] 1.015 Urine Protein 30 H Urine Glucose [...] pen 20 unit subcut DAILY thyroid (pork) [Wray Thyroid] 30 mg tablet 30 mg PO MOWEFR elderberry fruit 200 mg capsule 1,000 mg PO DAILY Trulicity 1.5 mg/0.5 mL pen injector 1.5 mg subcut QWEEK Primary Care Provider: Preet Farrar Referrals: Preet Farrar, [Primary Care Provider] - Print Language: Finnish What to do if you have Problems For any increased pain, shortness of breath, bleeding, nausea or vomiting, chestpain, or any unexpected problems, contact your Primary Care Provider. Call [facility] ([phone]) or report tothe closest Emergency Room. Call 911 if necessary. 04/15/251702 Cosigner Signature (if applicable): CC: Dr. Preet Farrar DO ~ Signed [facility]07-19-2025 Discharge summary Author Berry Waldrop [facility] Note Date/Time April 15, 2025 7:16 pm [facility] Medical Records Department [address] [place] [address] Emergency Department Summary 04/15/25 MR#: [id number] Acct: [id number] Name: DEONTE BLANCO Rep #:[id number] : 1955 69 From: Berry Waldrop MD PCP: Dr. Preet Farrar DO Status:RE ER Location: ED ADDENDUM by Dr. Juan [...] Prior similar symptoms: Yes Recent [facility] Medical History Cardiology follow-up encounter History of [...] PO MOWEFR 07/21/24 0 12/26/24 08:00 History (Wray Thyroid) insulin glargine 100 unit/mL (3 20 [...] 81.4 H Lymph % (Auto) 10.8 L [place] % (Auto) 6.5 Eos % (Auto) 0.2 [...] Sl. Cloudy Urine pH 6.0 Ur Specific [place] 1.015 Urine Protein 30 H Urine Glucose [...] pen 20 unit subcut DAILY thyroid (pork) [Wray Thyroid] 30 mg tablet 30 mg PO MOWEFR elderberry fruit 200 mg capsule 1,000 mg PO DAILY Trulicity 1.5 mg/0.5 mL pen injector 1.5 mg subcut QWEEK Primary Care Provider: Preet Farrar Referrals: Preet Farrar DO [Primary Care Provider] - Print Language: Finnish What to do if you have Problems For any increased pain, shortness of breath, bleeding, nausea or vomiting, chestpain, or any unexpected problems, contact your Primary Care Provider. Call [facility] ([phone]) or report to the closest Emergency Room. Call 911 if necessary. 04/15/25 1703 <Electronically signed by Berry Waldrop MD> Cosigner Signature (if applicable): CC: Dr. Preet Farrar DO ~ Signed [facility] Work Phone: [phone] Telephone encounter Note* Telephone Encounter - Susie LizALEXIA - 04/07/2025 10:06 AM EDT Pt notified via my chart. [facility]07-11-2025 Miscellaneous Notes* Telephone Encounter - Liz Richards LPN - 04/07/2025 10:06 AM EDT Pt notified via my chart. * Telephone Encounter - Liz Richards LPN - 04/06/2025 1:46 PM EDT Images from the original note were not included. This was denied last year and again this year. ote from payer: Request Reference Number: [id number]. ARMOUR THYRO TAB 120MG is denied for not meeting the prior authorization requirement(s). Details of this decision are in the notice attached below or have been faxed to you. Payer: [employer] PBM Part D [phone] Electronic appeal: Not supported Appeal instructions: Appeals are not supported through ePA. Please refer to the fax case notice forappeals information and instructions. View History Notes Time User Attachment Attachment received from payer. 04/06/2025 1:43 PM Cchs, Rx Priorauth In Document Pharmacy Benefits Open Encounter SUSANADEONTE DEE - [employer] ([employer]) Covered: Retail, Mail Order Unknown: Specialty, Long-Term Care BIN: [id number] : 1955 Group ID: [id number] PCN: [id number] Legal sex: F Group name: COMMERCIAL Address: [address] [place], [place] [id number] Medication Being Authorized ARMOUR THYROID 120 mg tablet Take 1 tablet PO daily in AM Dispense: 90 tablet Refills: 1 TRACEY Start: 01/20/2025 Class: Normal Diagnoses: Acquired hypothyroidism This order has been released to its destination. To be filled at: [facility] [address] [place] [address] [address] - [phone] Prior Authorization History for ARMOUR THYROID 120 [...] EDT PRIOR AUTHORIZATION Medication for Prior Authorization: Wray Thyroid Insurance Company: [facility] Medicare Patient insurance ID number: [id number] Lisa Aparicio RN documented in this encounterOhio[facility]07-[facility]-2025 Telephone encounter Note * Telephone Encounter - Liz Richards LPN - 04/06/2025 1:46 PM EDT Images from the original note were not included. This was denied last year and again this year. ote from payer: Request Reference Number: [id number]. ARMOUR THYRO TAB 120MG is denied for not meeting the prior authorization requirement(s). Details of this decision are in the notice attached below or have been faxed to you. Payer: [employer] P[employer] Part D [phone] Electronic appeal: Not supported Appeal instructions: Appeals are not supported through ePA. Please refer to the fax case notice forappeals information and instructions. View History Notes Time User Attachment Attachment received from payer. 04/06/2025 1:43 PM Cchs, Rx Priorauth In Document Pharmacy Benefits Open Encounter DEONTE BLANCO - [employer] ([employer]) Covered: Retail, Mail Order Unknown: Specialty, Long-Term Care BIN: [id number] : 1955 Group ID: [id number] PCN: [id number] Legal sex: F Group name: [employer]ERCIAL Address: [address] [place], [place] [id number] Medication Being Authorized ARMOUR THYROID 120 mg tablet Take 1 tablet PO daily in AM Dispense: 90 tablet Refills: 1 TRACEY Start: 01/20/2025 Class: Normal Diagnoses: Acquired hypothyroidism This order has been released to its destination. To be filled at: [facility] [address] [place] [address] - [address] [facility] - [phone] Prior Authorization History for ARMOUR THYROID 120 mg tablet 1 year ago Denied [facility]07-10-2025 Telephone encounter Note* Telephone Encounter - Liz Richards LPN - 04/06/2025 11:24 AM EDT PA completed with both doses. [facility]07-10-2025 Telephone encounter Note* Telephone Encounter - Liz Richards LPN - 04/06/2025 11:00 AM EDT Electronic PA requested for both doses 120mg and 30 mg [facility]07-10-2025 Telephone encounter Note* Telephone Encounter - Lisa Aparicio RN - 04/06/2025 10:37 AM EDT PRIOR AUTHORIZATION Medication for Prior Authorization: Wray Thyroid Insurance Company: [facility] Medicare Patient insurance ID number: [id number] Lisa Aparicio RN [facility]07-07-2025 Telephone encounter Note* Telephone Encounter - Lisa [...] Aparicio RN April 03, 2025 9:31 AM [facility]07-07-2025 Miscellaneous Notes* Telephone Encounter - Lisa Aparicio [...] 03, 2025 9:31 AM documented in this encounterOhiohealth Grady [facility] Hospital06-27-2025 Note* Addendum Note - Liliana Bennett APRN.CNP - 03/24/2025 9:13 AM EDTAddended by: LILIANA BENNETT on: 03/24/2025 09:13 AM Modules accepted: Orders [facility]06-27-2025 Miscellaneous Notes* Addendum Note - Liliana Bennett APRN.CNP - 03/24/2025 9:13 AM EDTAddended by: LILIANA BENNETT on: 03/24/2025 09:13 AM Modules accepted: Orders documented in this encounterOhiohealth Grady [facility] Hospital06-25-2025 Instructions* Patient Instructions* Liliana Bennett APRN.CNP - 03/22/2025 1:58 PM EDT Please schedule your mammogram Try cutting the carbs down to about 40g a day. Carbs and sugars with the trulicity can cause GI upset called sugar dumping Drink plenty of water Continue with at least 80-100 g of protein a day Start your new dose of trulicity on Thursday documented in this encounterOhiohealth Grady Memorial Hospital06-25-2025 NoteHNO ID: [id number] Author: LILIANA BENNETT APRN.CNP Service: ? Author [...] she developed pancreatitis. Scheduled f/u appt with Generator Operator [employer]. HISTORY OF PRESENT ILLNESS: Hyperglycemia: - Reports [...] with an orange or apple. - Dinner: Rampart or tuna with broccoli, cauliflower, or [place] sprouts. - Snacks: Granola bars (17 grams [...] tablet by mouth on (more content not included)...[facility]06-25-2025 History of Present illness Narrative* Liliana Bennett APRN.DIRECTOR STATISTICAL PROGRAMMING - 03/22/2025 1:44 PM EDT This is [...] she developed pancreatitis. Scheduled f/u appt with Generator Operator [employer]. HISTORY OF PRESENT ILLNESS: Hyperglycemia: - Reports [...] with an orange or apple. - Dinner: Rampart or tuna with broccoli, cauliflower, or [place] sprouts. - Snacks: Granola bars (17 grams [...] DM - Uncontrolled E11.65 Insulin: Yes Insulin Peyton, Disposable, (BD ULTRA-FINE MARIA T PEN NEEDLE) [...] as needed for worsening/no improvement. Liliana Bennett APRN.DIRECTOR STATISTICAL PROGRAMMING Recording using Cloudfinder software for draft documentation of the visit was discussed with the patient/authorized sales representative jewelry; all questions welcomed and answered. Patient/authorized sales representative jewelry agreed to proceed documented in this encounterOhiohealth Grady Memorial Hospital06-21-2025 Telephone encounter Note * Telephone Encounter - Conchis Jacob MD - 03/18/2025 4:07 PM EDT The following approved medication requests have been transmitted electronically. Requested Prescriptions Signed Prescriptions Disp Refills ondansetron orally disintegrating (ZOFRAN ODT) 4 mg disintegrating tablet 20 tablet 0 Sig: Take 1 tablet by mouth every 8 hours as needed for nausea/vomiting. Authorizing Provider: CONCHIS JACOB MD [facility]06-21-2025 Miscellaneous Notes* Telephone Encounter - Conchis Jacob [...] asking if Zofran could be sent to [facility]. Pended previous order of Zofran. Message [...] office open till noon. documented in this encounterOhiohealth Grady Memorial Hospital06-21-2025 Telephone encounter Note * Telephone Encounter - [...] Zofran pended for review. Josie Starks RN [facility]06-21-2025 Telephone encounter Note* Telephone Encounter - Josie [...] asking if Zofran could be sent to [facility]. Pended previous order of Zofran. Message from 03/17/2025: Spoke with pt she states did not take it that day at all in case . She states she has been sick forpast 2 days with nausea and vomited once and diarrhea. Told her plenty of fluids and rest if no better when gets up tomorrow call in office open till noon. [facility]06-19-2025 Telephone encounter Note* Telephone Encounter - Sofia Rodriguez MA - 03/16/2025 3:47 PM EDT Left message to return call Sofia Rodriguez MA [facility]06-19-2025 Miscellaneous Notes* Telephone Encounter - Sofia Rodriguez MA - 03/16/2025 3:47 PM EDT Left message to return call Sofia Rodriguez MA * Telephone Encounter - Liliana Bennett APRN.CNP - 03/16/2025 2:55 PM EDT If patient [...] insulin shot tomorrow morning? documented in this encounterOhiohealth Grady [facility] Hospital06-19-2025 Telephone encounter Note * Telephone Encounter - Liliana Bennett APRN.DEREK - 03/16/2025 2:55 PM EDT If patient doesn't recall if she took the insulin or not, she should not take it and wait until tomorrow. Better for her to be high than to bottom out. Thank you [facility]06-19-2025 Telephone encounter Note* Telephone Encounter - Yesi [...] and take her insulin shot tomorrow morning? [facility]05-25-2025 Radiology Diagnostic study note [facility] Imaging Services [address] [place], [place] [id number] CTA Abdomen W/WO Contrast MR#: [id number] Acct: [id number] Name: DEONTE BALNCO Rep #: [id number] : 1955 F 69 From: Cuba Covarrubias MD PCP: Dr. Preet Farrar, DO Status: RE G CLI Study:CTA Abdomen W/WO Contrast Date of Exam: 02/16/25 Exam# [id number] Ordering Dr: Jozef Reyna MD PROCEDURE: CTA [...] stenosis of the renal arteries. Reading [facility] CC: Dr. Julien Reyna MD; Dr. Preet Farrar DO ~ Sales Special Agent: Signed [facility]05-24-2025 NoteHNO ID: [id number] Author: PREET FARRAR DO Service: ? Author Type: Physician Type: Progress Notes Filed: 02/18/2025 11:49 Note Text: Patient presents with: F/U 3 Month HPI: Deonte Blanco is a 69 year old female who presents to the office today for review of health conditions. Concerns today: She was seen by Clinical Trial Leader Dr. Isaac and states that she didn't [...] In the morning. (Take (more content not included)...[facility]05-20-2025 NoteHNO ID: [id number] Author: RODRIGO HOLGUIN RN Service: ? Author Type: Registered Nurse Type: Progress Notes Filed: 02/14/2025 13:17 Note Text: DIABETES CARE AND EDUCATION VISIT Location: [place] Type of visit: In person individual PATIENT'S [...] Blanco DATE: February 14, 2025 TIME: 12:48 [facility]05-15-2025 Instructions* Patient Instructions* Bean Isaac MD - 02/09/2025 10:35 AM EDT Continue same dose for latus and glimepiride. Recommend being careful wit trulicity as it has same side effects as Ozempic, and hence risk of pancreatitis If stopping Trulicity, I would recommend resuming januvia 100 mg daily documented in this encounterOhiohealth Grady Memorial Hospital05-15-2025 NoteHNO ID: [id number] Author: PUSHPA FALCON RN Service: ? Author Type: Registered Nurse Type: Progress Notes Filed: 02/09/2025 19:08 Note Text:[facility]05-15-2025 History of Present illness Narrative* Pushpa Falcon [...] carbs . 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 weight management referral placed #Hypertension -Today BP [...] which included preparing to see the patient, [id number] patient care, completing clinical documentation, obtaining and/or reviewing separately obtained history, counseling and educating the patient/family/caregiver, ordering referrals, and c ommunicating results to the patient/family/caregiver and extensive counseling. Bean Isaac MD Endocrinology Associate Staff [facility] Endocrinology and Metabolism [place] [phone] Medical Decision Making: Medical Decision Making Level: 1 - N/A documented in this encounterOhiohealth Grady Memorial Hospital05-15-2025 NoteHNO ID: [id number] Author: BEAN ISAAC MD Service: ? Author [...] carbs . Lifestyle -Exercise: 30 mins on RVX daily -Diet: Breakfast: 3 eggs, 1 slice [...] Benign hypertensive heart disease (more content not included)...[facility]05-01-2025 Evaluation note* Diagnosis Onset Date Resolution Status Admit Date Aortic valve stenosis with insufficiency chronic January 26, 2025 2: 04pm Atherosclerotic vascular disease chronic January 26, 2025 2: 04pm Carotid artery disease chronic 2024 2:04pm Diabetes chronic January 26, 2025 2:04pm Dyslipidemia chronic January 26 2:04pm History of CVA (cerebrovascu lar accident) chronic January 26, 2025 2: 04pm Hypertension chronic January 26 2:04pm Hypothyroidism chronic January 26, 2 025 2:04pm Renal artery stenosis chronic January 26, 2025 2:04pm Encounter for postoperative care noneactive February 06, 2025 10:49am [facility] Work Phone: [phone] Telephone encounter Note* Telephone Encounter - Yesi [...] she has more questions. Madie Bruce MA [facility]04-08-2025 Miscellaneous Notes* Telephone Encounter - Yesi Kitchen [...] will follow up with Dr. Farrar or web production manager provider for Dr. Isaac. * Telephone Encounter [...] hysterectomy Protocols used: Diabetes - High Blood Peshu-APUMB-GL documented in this encounterOhiohealth Grady Memorial Hospital04-08-2025 NotePatient Outreach (FAMPWS) DEONTE BLANCO ([id number]) 1955 F Date Time Provider Department 01/03/25 [...] for screening mammogram for breast cancer [Z12.31] Order(s):LAURO SCREENING W BRAIN [7560490] Order #: [id number] FUTURE Prescriptions as of 02/03/2025 - ARMOUR [...] on fasting at 8 am - Insulin Peyton, Disposable, (BD ULTRA-FINE MARIA T PEN NEEDLE) [...] BMI 30-34.9 [E66.811] 03/23/2024 Encounter Status:Closed by [employer], PRODUSER on 02/03/25[facility] 01-02-2025 Telephone encounter Note* Telephone Encounter - Yesi Kitchen RN - 01/02/2025 4:52 PM EDT Routing note to Dr. Isaac for review as well-please see triage encounter from 12/30/24. [facility]04-07-2025 Miscellaneous Notes* Telephone Encounter - Yesi Kitchen [...] stated the call had been handled through [employer] chat. No notes in triage with what [...] reply. Chelo Prasad RN documented in this encounterOhiohealth Grady Memorial Hospital04-07-2025 Telephone encounter Note * Telephone Encounter - Sahara Mejia LPN - 01/02/2025 4:43 PM EDT Pt. informed. [facility]04-07-2025 Telephone encounter Note* Telephone Encounter - Preet Farrar DO - 01/02/2025 3:36 PM EDT Please have her hold the Januvia when starting the Trulicity Preet Farrar DO [facility]04-07-2025 Telephone encounter Note* Telephone Encounter - Yesi [...] will follow up with Dr. Farrar or web production manager provider for Dr. Isaac. [facility]04-07-2025 Telephone encounter Note* Telephone Encounter - Pushpa [...] Falcon RN January 02, 2025 1:29 PM [facility]04-07-2025 Telephone encounter Note* Telephone Encounter - Yesi [...] stated the call had been handled through [employer] chat. No notes in triage with what was done. Will follow up with Dr. Isaac and her office. Will also forward this msg to her as well. [facility]04-04-2025 Telephone encounter Note* Telephone Encounter - Yesi [...] hysterectomy Protocols used: Diabetes - High Blood Vtyqb-UURSP-RW [facility]04-03-2025 Telephone encounter Note* Telephone Encounter - Chelo [...] call patient with reply. Chelo Prasad RN [facility]04-02-2025 Progress note Author Anushka Isaac [facility] Note Date/Time December 28, 2024 8:32 am [facility] Medical Records Department [address] [place] [address] Progress Note - OBGYN 12/28/24 0829 MR#: [id number] Acct: [id number] Name: DEONTE BLANCO Rep #:[id number] : 1955 69 From: Anushka centeno MD PCP: Dr. Preet Farrar, DO Status:AD M IN Location: MS3 AF135-0 Subjective Subjective Patient doing well without complaints [...] control. 12/28/24 0832 <Electronically signed by Anushka Isaac MD> Cosigner Signature (if applicable): CC: ~ Signed [facility] Work Phone: [phone] Progress note [facility] Medical Records Department [address] [place] [address] Progress Note - OBGYN 12/28/24828 MR#: [id number] Acct: [id number] Name: DEONTE BLANCO Rep #:[id number] : 1955 69 From: Anushka centeno MD PCP: Dr. Preet Farrar, DO Status:AD M IN Location: [place] [address]-1 Subjective Subjective Patient doing well without complaints [...] Cosigner Signature (if applicable): CC: ~ Signed [facility]04-01-2025 Progress note Author Carmen Dallas [facility] Note Date/Time December 27, 2024 6:57 pm [facility] Medical Records Department [address] [place] [address] Progress Note 12/27/24 1729 MR#: [id number] Acct: [id number] Name: DEONTE BLANCO Rep #:[id number] : 1955 69 From: Carmen Dallas MD PCP: Dr. Preet Farrar, DO Status:AD M IN Location: [place] [address]-1 Subjective Subjective Patient is a 69-year-old female [...] * Also takes sitagliptin. * #Hypothyroidism: On Wray Thyroid. DVT prophylaxis: As per primary service. Thank you for the courtesy of the consult. Hospitalist service will continue tofollow with you. Charges/Coding Visit Charges Inpatient E&M: 12182 Subs Hosp L2 12/27/24 9164 <Electronically signed by Carmen Dallas MD> Carmen Dallas MD Cosigner Signature (if applicable): CC: ~ Signed [facility] Work Phone: 1(155) 977-756204-01-2025 Progress note [facility] Medical Records Department [address] [place] [address] Progress Note 12/27/24 1729 MR#: [id number] Acct: [id number] Name: DEONTE BLANCO Rep #:[id number] : 1955 69 From: Carmen Dallas MD PCP: Dr. Preet Farrar, DO Status:AD M IN [place] [facility] QL471-0 Subjective Subjective Patient is a 69-year-old female [...] * Also takes sitagliptin. * #Hypothyroidism: On Wray Thyroid. DVT prophylaxis: As per primary service. Thank you for the courtesy of the consult. Hospitalist service will continue tofollow with you. Charges/Coding Visit Charges Inpatient E&M: 89371 Subs Hosp L2 12/27/24 7796 Carmen Dallas MD Cosigner Signature (if applicable): CC: ~ Signed [facility]04-01-2025 Progress note Author Anushka Isaac [facility] Note Date/Time December 27, 2024 4:44 pm [facility] Medical Records Department [address] [place] [address] Progress Note 12/27/24 1639 MR#: [id number] Acct: [id number] Name: DEONTE BLANCO Rep #:[id number] : 1955 69 From: Anushka centeno MD PCP: Dr. Preet Farrar, DO Status:[facility] Location: [place] [address] Progress Note patient seen- pain fairly controlled, catheter replaced and heart rate improved now, bp still elevated, BS 299 and will consult medicine for assistance with management. 12/27/24 1644 <Electronically signed by Anushka Isaac MD> Anushka Isaac MD Cosigner Signature (if applicable): CC: ~ Signed [facility] Work Phone: 1(483) 179-326804-01-2025 Progress note [facility] Medical Records Department [address] [place] [address] Progress Note 12/27/24 1639 MR#: [id number] Acct: [id number] Name: DEONTE BLANCO Rep #:[id number] : 1955 69 From: Anushka centeno MD PCP: Dr. Preet Farrar, DO Status:HARSHA March [facility] Location: [place] [address] Progress Note patient seen- pain fairly controlled, catheter replaced and heart rate improved now, bp still elevated, BS 299 and will consult medicine for assistance with management. 12/27/241643 Anushka Isaac MD Cosigner Signature (if applicable): CC: ~ Signed [facility]04-01-2025 Discharge summary Author Anushka Isaac [facility] Note Date/Time December 27, 2024 12:1 7pm [facility] Medical Records Department [address] [place] [address] Instructions for Home/Discharge Instructions 12/27/24 1215 MR#: [id number] Acct: [id number] Name: DEONTE BLANCO Rep #:[id number] : 1955 69 From: Anushka centeno MD PCP: Dr. Preet Farrar, DO Status:HARSHA March [facility] Discharge Instructions Diet Discharge Diet: No restrictions [...] Care Provider: Preet Farrar Instructions Print Language: Finnish Discharge Orders/Prescriptions Prescriptions: New oxycodone-acetaminophen [Percocet] 5-325 [...] pen 20 unit subcut DAILY thyroid (pork) [Wray Thyroid] 30 mg tablet 30 mg PO MOWEFR elderberry fruit 200 mg capsule 1,000 mg PO DAILY Referrals / Follow Up: Preet Farrar DO [Primary Care Provider] - Disposition Disposition (needs filled in before D/C Order can be placed): Home, Self Care 12/27/24 1217<Electronically signed by Anushka Isaac MD>Anushka Isaac MD CC: Dr. Preet Farrar DO ~ Signed [facility] Work Phone: 1(507) 280-172304-01-2025 Consult note Author Mati Ervin [facility] Note Date/Time December 27, 2024 11:1 7am [facility] Medical Records Department [address] [place] [address] Anesthesia Postop Eval II 12/27/24 1116 MR#: [id number] Acct: [id number] Name: SUSANAROSIODEONTE G Rep #:[id number] : 1955 69 From: Mati Ervin MD PCP: Dr. Preet Farrar, DO Status:RE G SDC Y Race: C Location: [place] [address] Anesthesia Postop Eval I Sum Postop Eval Completion status Anesthesia document: Postop Eval 1 completed: Yes Anesthesia Postop Eval I Summary Anesthesia Postop Eval I Summary: Anesthesia Postop Eval I: Assessment Summary Airway patent Yes 12/27/24 10:05 CORRECTION OFFICER SUPERVISOR.GDOTT Spontaneous unlabored Yes 12/27/24 10:05 CORRECTION OFFICER SUPERVISOR.GDOTT respirations Mental status Awake,Calm 12/27/24 10:05 CORRECTION OFFICER SUPERVISOR.GDOTT nausea No 12/27/24 10:05 CORRECTION OFFICER SUPERVISOR.GDOTT Vomiting No 12/27/24 10:05 CORRECTION OFFICER SUPERVISOR.GDOTT Anesthesia Postop Eval I: Fluid Summary Crystalloid volume administer 700 12/27/24 10:05 CORRECTION OFFICER SUPERVISOR.GDOTT (ml) Colloids volume administered ( ml) Blood Product volume administered (ml) Total IV fluid infused 700 12/27/24 10:05 CORRECTION OFFICER SUPERVISOR.GDOTT Anesthesia Postop Eval I: Summary Notes Anesthesia Complication No 12/27/24 10:05 CORRECTION OFFICER SUPERVISOR.GDOTT Anesthesia Complication Comment: Post-operative progress note Anesthesia: Postop Eval II Evaluation Mental status: Awake and Calm Pain Level: 2 nausea: No Vomiting: No Complications Anesthesia Complication: No 12/27/24 1117 <Electronically signed by Mati victor MD> Date _ Mati Ervin MD Cosigner Signature: Date CC: ~ Signed [facility] Work Phone: 1(884) 541-544204-01-2025 Discharge summary [facility] Medical Records Department [address] [place] [address] Instructions for Home/Discharge Instructions 12/27/24 1215 MR#: [id number] Acct: [id number] Name: DEONTE BLANCO Rep #:[id number] : 1955 69 From: Anushka centeno MD PCP: Dr. Preet Farrar DO Status:RE G [facility] Discharge Instructions Diet Discharge Diet: No restrictions [...] Care Provider: Preet Farrar Instructions Print Language: Finnish Discharge Orders/Prescriptions Prescriptions: New oxycodone-acetaminophen [Percocet] 5-325 [...] pen 20 unit subcut DAILY thyroid (pork) [Wray Thyroid] 30 mg tablet 30 mg PO MOWEFR elderberry fruit 200 mg capsule 1,000 mg PO DAILY Referrals / Follow Up: Preet Farrar DO [Primary Care Provider] - Disposition Disposition (needs filled in before D/C Order can be placed): Home, Self Care 12/27/24 1217Anushka Isaac MD CC: Dr. Preet Farrar DO ~ Signed [facility]04-01-2025 Procedure note [facility] Medical Records Department [address] [place] [address] Operative Report 12/27/24 1212 MR#: [id number] Acct: [id number] Name: DEONTE BLANCO Rep #:[id number] : 1955 69 From: Anushka centeno MD PCP: Dr. Preet Farrar DO Status:[facility] Location: [place] [address] Problems Associated Problem List Diagnoses (1) Endometrial hyperplasia without atypia: Multi Select Codes Urinary/Genital Urinary/Genital CPT Codes: 60021 TVH <250 gr uterus Operative Report (Standard) Operative Information Date of Procedure: 12/27/24 Pre-Operative Diagnosis: see problem list details Post-Operative Diagnosis: same Surgery/Procedure Performed: total vaginal hysterectomy leather belt shaper: Yes Personnel Clerk: Isha Valderrama Tasks completed by vector control assistant: Opening & closing and Retracting Type [...] was noted. The vagina was closed with [id number] 0 Vicrylpop offs including the posterior and anterior peritoneum in the reapproximation. Excellent hemostasis was noted. All instruments removed from the vagina clear urine was noted at the end of the procedure. Surgical Findings: nl uterus and ovaries. Complications Complications: No 12/27/24 1215 Cosigner Signature (if applicable): CC: Dr. Preet Farrar DO; Dr. Anushka Isaac MD~ Signed [facility]04-01-2025 Consult note Author Mayrenae Cartwright [facility] Note Date/Time December 27, 2024 10:0 5am [facility] Medical Records Department [address] [place] [address] Anesthesia Postop Eval I 12/27/24 1004 MR#: [id number] Acct: [id number] Name: DEONTE BLANCO Rep #:[id number] : 1955 69 From: May Cartwright PCP: Dr. Preet Farrar DO Status:RE G SDC Y Race: C Location: [place] [address] Anesthesia: Postop Eval I Current Vital Signs [...] by May Cartwright > Date _ May Cartwright Cosigner Signature: Date CC: ~ Signed [facility] Work Phone: [phone] Consult note [facility] Medical Records Department [address] [place] [address] Anesthesia Postop Eval II 12/27/24 1116 MR#: [id number] Acct: [id number] Name: DEONTE BLANCO Rep #:[id number] : 1955 69 From: Mati Ervin MD PCP: Dr. Preet Farrar, DO Status: G [facility] Y Race: C Location: [place] [address] Anesthesia Postop Eval I Sum Postop Eval Completion status Anesthesia document: Postop Eval 1 completed: Yes Anesthesia Postop Eval I Summary Anesthesia Postop Eval I Summary: Anesthesia Postop Eval I: Assessment Summary Airway patent Yes 12/27/24 10:05 CORRECTION OFFICER SUPERVISOR.GDOTT Spontaneous unlabored Yes 12/27/24 10:05 CORRECTION OFFICER SUPERVISOR.GDOTT respirations Mental status Awake,Calm 12/27/24 10:05 CORRECTION OFFICER SUPERVISOR.GDOTT nausea No 12/27/24 10:05 CORRECTION OFFICER SUPERVISOR.GDOTT Vomiting No 12/27/24 10:05 CORRECTION OFFICER SUPERVISOR.GDOTT Anesthesia Postop Eval I: Fluid Summary Crystalloid volume administer 700 12/27/24 10:05 CORRECTION OFFICER SUPERVISOR.GDOTT (ml) Colloids volume administered ( ml) Blood Product volume administered (ml) Total IV fluid infused 700 12/27/24 10:05 CORRECTION OFFICER SUPERVISOR.GDOTT Anesthesia Postop Eval I: Summary Notes Anesthesia Complication No 12/27/24 10:05 CORRECTION OFFICER SUPERVISOR.GDOTT Anesthesia Complication Comment: Post-operative progress note Anesthesia: Postop Eval II Evaluation Mental status: Awake and Calm Pain Level: 2 nausea: No Vomiting: No Complications Anesthesia Complication: No 12/27/24 1117 valente TURNER> Date _ Mati Ervin MD Cosigner Signature: Date CC: ~ Signed [facility]04-01-2025 Evaluation note* Diagnosis Onset Date Resolution Status Admit Date Endometrial hyperplasia with out atypia acute December 27, 2024 8:20am History of total vaginal hysterectomy (TVH) acute December 27 8:20am Atherosclerotic vascular disease chronic December 27, 2024 8:20am Carotid artery disease chronic 2024 8:20am Dyslipidemia chronic December 27, 2 025 8:20am History of CVA (cerebrovascu lar accident) chronic December 27, 2024 8:20am Hypertension chronic December 27, 2 025 8:20am Renal artery stenosis chronic Dec [...] postoperative care noneactive February 06, 2025 10:49am [facility] Work Phone: 1(560) 226-254804-01-2025 Consult note Author Mati Ervin [facility] Note Date/Time December 27, 2024 8:06 am [facility] Medical Records Department [address] [place] [address] Pre-Anesthesia Evaluation 12/27/24 0752 MR#: [id number] Acct: [id number] Name: DEONTE BLANCO Rep #:[id number] : 1955 69 From: Mati Ervin MD PCP: Dr. Preet Farrar, DO Status:RE G SDC Y Race: C Location: [place] [address] ASA Classification* ASA Classification ASA Classification: 3 [...] Pre-Assessment Diagnosis/Proposed Procedure Planned Operative Procedure(s): HYSTERECTOMY [facility] BSO Anesthesia History Anesthesia History - video surveillance technician: Anesthesia History - video surveillance technician Hx Hospitalization No 12/13/24 09:23 Any Problems [...] sips of water?: Yes PONV PONV - video surveillance technician: PONV - video surveillance technician Female Yes 12/13/24 09:23 HX of Motion [...] 12/27/24 07:00 Respiratory Assessment Respiratory Assessment - video surveillance technician: Respiratory Tract Infection Hx - video surveillance technician Hx Respiratory Tract Infection No 12/13/24 09:23 STOP Sleep Apnea STOP Sleep Apnea - video surveillance technician: STOP Sleep Apnea - video surveillance technician Hx Hypertension Yes: CONTROLLED WITH MED 12/13/24 [...] 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 - video surveillance technician: 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 - video surveillance technician Tobacco Use Cigarettes 06/13/24 15:14 Smoking Status Former smoker 12/13/24 09:23 Hx Tobacco Use Yes: marijuana 12/13/24 09:23 Years Smoking Packs Smoked per Day Smoking Cessation Date was Yes - quit smoking within 15 12/13/24 09:23 within the last 15 years years Hx Smoking Cessation Date 10/29/22 12/13/24 09:23 Hx Smoking Cessation No 12/13/24 09:23 Counseling Hematologic Medial History Hematologic Hx - video surveillance technician: Hematologic Medical Hx - impersonator character Hx of Blood Transfusion No 12/13/24 09:23 [...] confused, unrespo /Reproduction History /Reproductive History - video surveillance technician: /Reproductive Hx- video surveillance technician Hx Now No 12/13/24 09:23 Gestational Age [...] PO MOWEFR 07/21/24 0 12/26/24 08:00 History (Wray Thyroid) glimepiride 2 mg tablet 3 mg PO BID 08/10/24 5 17:45 History insulin glargine 100 unit/mL (3 20 unit subcut DAILY 0 12/12/24 12/26/24 10:00 History mL) subcutaneous pen (Lantus Solostar U-100 Insulin) spironolactone 25 mg tablet 25 mg PO BID 12/12/24 0310/22 20:00 History elderberry fruit 200 mg capsule [...] MD Cosigner Signature: Date CC: ~ Signed [facility] Work Phone: 1(224) [phone] Consult note [facility] Medical Records Department [address] [place] [address] Anesthesia Postop Eval I 12/27/24 1004 MR#: [id number] Acct: [id number] Name: DEONTE BLANCO Rep #:[id number] : 1955 69 From: May Cartwright PCP: Dr. Preet Farrar, DO Status:RE G SDC Y Race: C Location: [place] [address] Anesthesia: Postop Eval I Current Vital Signs [...] Yes 12/27/24 1005 > Date _ May Gilbertigner Signature: Date CC: ~ Signed [facility]04-01-2025 History and physical note Author Anushka Isaac [facility] Note Date/Time December 27, 2024 7:22 am [facility] Medical Records Department [address] [place] [address] History & Physical Exam 12/27/24 0721 MR#: [id number] Acct: [id number] Name: EDONTE BLANCO Joaquim Rep #:[id number] : 1955 69 From: Anushka centeno MD PCP: Dr. Preet Farrar, DO Status:[facility] Location: [place] [address] History and Physical Date of Admission: 12/27/24 [...] Reasons: TVHBS Chief Complaint: FU consult medications Window Tinter Required: No Is patient in pain?: No [...] mg PO MOWEFR 07/21/24 12/12/24 Histor y (Wray Thyroid) glimepiride 2 mg tablet 3 mg [...] : No Nurse's Note: FU medication consult [facility] Medical History First degree AV block Abnormal [...] no acute distress and welldeveloped Orientation: alert [facility] Head: normal to inspection and normocephalic [...] physical exam. Anushka Isaac MD 12/27/24 0722 <Electronically signed by Anushka Isaac MD> Cosigner Signature (if applicable): CC: Dr. Preet Farrar DO; Dr. Anushka Isaac MD~ Signed [facility] Work Phone: 1(578) 322-912304-01-2025 Consult note [facility] Medical Records Department [address] [place] [address] Pre-Anesthesia Evaluation 12/27/24 0752 MR#: [id number] Acct: [id number] Name: DEONTE BLANCO Rep #:[id number] : 1955 69 From: Mati Ervin MD PCP: Dr. Preet Farrar DO Status: G [facility] Y Race: C Location: [place] [address] ASA Classification* ASA Classification ASA Classification: 3 [...] TL BSO Anesthesia History Anesthesia History - video surveillance technician: Anesthesia History - video surveillance technician Hx Hospitalization No 12/13/24 09:23 Any Problems [...] sips of water?: Yes PONV PONV - video surveillance technician: PONV - video surveillance technician Female Yes 12/13/24 09:23 HX of Motion [...] 5 ft 12/27/24 07:00 Weight: 84.7 kg 04/01/25 07:00 Body Mass Index (BMI) 36.4 12/27/24 07:00 Respiratory Assessment Respiratory Assessment - video surveillance technician: Respiratory Tract Infection Hx - video surveillance technician Hx Respiratory Tract Infection No 12/13/24 09:23 STOP Sleep Apnea STOP Sleep Apnea - video surveillance technician: STOP Sleep Apnea - video surveillance technician Hx Hypertension Yes: CONTROLLED WITH MED 12/13/24 [...] 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 - video surveillance technician: 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 - video surveillance technician Tobacco Use Cigarettes 06/13/24 15:14 Smoking Status Former smoker 12/13/24 09:23 Hx Tobacco Use Yes: marijuana 12/13/24 09:23 Years Smoking Packs Smoked per Day Smoking Cessation Date was Yes - quit smoking within 15 12/13/24 09:23 within the last 15 years years Hx Smoking Cessation Date 10/29/22 12/13/24 09:23 Hx Smoking Cessation No 12/13/24 09:23 Counseling Hematologic Medial History Hematologic Hx - video surveillance technician: Hematologic Medical Hx - impersonator character Hx of Blood Transfusion No 12/13/24 09:23 [...] confused, unrespo /Reproduction History /Reproductive History - video surveillance technician: /Reproductive Hx- video surveillance technician Hx Now No 12/13/24 09:23 Gestational Age [...] 12/27/24 08:31 1 mg X1 ONE Administration [facility] Medical History Cardiology follow-up encounter History of [...] PO MOWEFR 07/21/24 0 12/26/24 08:00 History (Wray Thyroid) glimepiride 2 mg tablet 3 mg [...] no additional complaints, except as documented. 12/27/24805 valente TURNER> Date _ Mati Ervin MD Cosigner Signature: Date CC: ~ Signed [facility]04-01-2025 History and physical note [facility] Medical Records Department [address] [place] [address] History & Physical Exam 12/27/24 0721 MR#: [id number] Acct: [id number] Name: DEONTE BLANCO Rep #:[id number] : 1955 69 From: Anushka centeno MD PCP: Dr. Preet Farrar, DO Status:[facility] Location: [place] [address] History and Physical Date of Admission: 12/27/24 [...] Reasons: TVHBS Chief Complaint: FU consult medications Window Tinter Required: No Is patient in pain?: No [...] mg PO MOWEFR 07/21/24 12/12/24 Histor y (Wray Thyroid) glimepiride 2 mg tablet 3 mg [...] : No Nurse's Note: FU medication consult [facility] Medical History First degree AV block Abnormal [...] no acute distress and welldeveloped Orientation: alert [facility] Head: normal to inspection and normocephalic [...] history and physical exam. Anushka Isaac MD 12/27/24721 Cosigner Signature (if applicable): CC: Dr. Preet Farrar DO; Dr. Anushka Isaac MD~ Signed [facility]04-01-2025 [facility] Medical Records Department [address] [place] [address] History Physical Exam 12/27/24720 MR#: [id number] Acct: [id number] Name: DEONTE BLANCO Rep #: [id number] : 1955 69 From: Anushka Isaac MD PCP: Dr. Preet Farrar DO Status:[facility] Location: [place] [address] History and Physical Date of Admission: 12/27/24 [...] Reasons: TVHBS Chief Complaint: FU consult medications Window Tinter Required: No Is patient in pain?: No Allergies metformin Allergy (Severe, Verified 09/13/24 14:02) Hivesprednisone Allergy (Intermediate, Verified 09/13/24 14:02) Itchingaspirin Allergy (Verified 09/13/24 14:02) mouth swellinggluten Allergy (Verified 09/13/24 14:02) Abd cramps/diarrheaibuprofen Allergy (Verified 09/13/24 14:02) mouth swellingSulfa (Sulfonamide Antibiotics) Allergy (Verified 09/13/24 14:02) pt can't remember Medications ???Medication ???Instructions ???Recorded ???Confirmed ???Type ergocalciferol (vitamin D2) 1,250 50,000 unit PO MOFR SUPPLEMENT 12/18/20 12/12/24 H istory mcg (50,000 unit) capsule thyroid (pork) 120 mg tablet 120 tablet PO DAILY THYROID 12/18/20 12/12/24 Hist ory atorvastatin 80 mg tablet 80 mg PO QHS cholesterol #30 tabs 11/04/22 5 Rx clopidogrel 75 mg tablet 75 mg PO DAILY BLOOD THINNER #30 11/04/22 12/12/24 Rx tabs carvedilol 6.25 mg tablet 6.25 mg PO BID 03/05/24 12/12/24 History pantoprazole 40 mg tablet,delayed 40 mg PO DAILY #30 tabs 05/22/24 12/12/24 Rx release vitamin C 30 mg-zinc citrate 1.1 1 tab PO DAILY 05/22/24 12/12/24 History mg-elderberry 25 mg chewable tablet (Sambucus Elderberry) sitagliptin phosphate 100 mg 100 mg PO QDAY 07/07/24 12/12/24 History tablet (Januvia) thyroid (pork) 30 mg tablet 30 mg PO MOWEFR 07/21/24 12/12/24 History (Wray Thyroid) glimepiride 2 mg tablet 3 mg PO BID 08/10/24 12/12/24 History ondansetron 4 mg disintegrating 4 mg PO Q8H PRN 08/12/24 12/12/24 History tablet insulin glargine 100 unit/mL (3 20 unit subcut DAILY 12/12/24 12/12/24 History mL) subcutaneous pen (Lantus Solostar U-100 Insulin) spironolactone 25 mg tablet 25 mg PO BID 12/12/24 12/12/24 History Is last menstrual period known: No Post menopausal: Yes Patient : No : No Nurse's Note: FU medication consult [facility] Medical History First degree AV block Abnormal [...] pain Surgical History History of back surgery ( 2019) Hx of umbilical hernia repair S/P tubal [...] presents for preop appointment. she has endometrial (more content not included)...[facility]03-26-2025 Telephone encounter Note* Telephone Encounter - Donna Kimble MA - 12/21/2024 10:49 AM EDT No PA needed covered. Called [facility] and spoke to Mumumío who did for brand lantus and is covered. Patient was notified Donna Kimble MA [facility]03-26-2025 Miscellaneous Notes* Telephone Encounter - Donna Kimble MA - 12/21/2024 10:49 AM EDT No PA needed covered. Called [facility] and spoke to Mumumío who did for brand lantus and is covered. Patient was notified Donna Kimble MA * Telephone Encounter - Chelo Prasad RN - 12/21/2024 9:12 AM EDT Patient calling in and states she needs a prior authorization for her lantus insulin, as ordered 10/07/24, per [facility]. Prior authorization requested for the following medication: Medication: insulin glargine (lantus solostar) 100 unit/mL Provider: Dr. Farrar Insurance Company Name: [facility] Medicare Pharmacy Name: [facility] Telephone number: [phone] Please call patient once an update has been received. Chelo Prasad RN documented in this encounterOhio[facility]03-[facility]-2025 Telephone encounter Note * Telephone Encounter - Chelo Prasad RN - 12/21/2024 9:12 AM EDT Patient calling in and states she needs a prior authorization for her lantus insulin, as ordered 10/07/24, per [facility]. Prior authorization requested for the following medication: Medication: insulin glargine (lantus solostar) 100 unit/mL Provider: Dr. Farrar Insurance Company Name: [facility] Medicare Pharmacy Name: [facility] Telephone number: [phone] Please call patient once an update has been received. Chelo Prasad RN [facility]03-24-2025 Telephone encounter Note* Telephone Encounter - Annmarie Canada RN - 12/19/2024 5:57 PM EDT Pt called and is notified of providers message and instructions. Pt voices understanding. She will call OBGYNs office to see how long she wants her to hold it. Annmarie Canada RN [facility]03-24-2025 Miscellaneous Notes* Telephone Encounter - Annmarie [...] hold Plavix. Patient requests call back at [phone]. Josie Starks RN documented in this encounterOhio[facility]03-24-2025 Telephone encounter Note * Telephone Encounter - Preet Farrar DO - 12/19/2024 5:08 PM EDT Okay to hold Plavix for 3-5 days, depending on surgeon preference Preet Farrar DO [facility]03-24-2025 Telephone encounter Note* Telephone Encounter - Josie Starks RN - 12/19/2024 2:49 PM EDT Patient calls to ask about holding Plavix for upcoming hysterectomy. Patient reports Dr. Isaac was leaning towards holding medication for 3 days but wanted patient to check with PCP to verify the length of time provider would recommend that she hold Plavix. Patient requests call back at [phone]. Josie Starks RN [facility]03-19-2025 Telephone encounter Note* Telephone Encounter - Jacqueline Candelario APRN.CNP - 12/14/2024 5:40 PM EDT The following approved medication requests have been transmitted electronically. Requested Prescriptions Signed Prescriptions Disp Refills dulaglutide (TRULICITY) 0.75 mg/0.5 mL pen injector 6 mL 2 Sig: Inject 0.75 mg subcutaneously one time a week. Authorizing Provider: JACQUELINE CANDELARIO APRN.CNP [facility]03-19-2025 Miscellaneous Notes* Telephone Encounter - Jacqueline [...] PM EDT [facility]'t [facility] for Victoza. * Telephone Encounter - Jacqueline Candelario APRN.CNP - 12/14/2024 5:12 PM EDT Ok to use generic form. Yes, I would wait to start new medication until after recovery of surgery. Thank you, Jacqueline Candelario APRN.DIRECTOR STATISTICAL PROGRAMMING * Telephone Encounter - Chelo Prasad RN [...] new medication? Please call patient with reply. Cehlo Prasad RN documented in this encounterOhio[facility]03-19-2025 Telephone encounter Note * Telephone Encounter - Sahara Mejia LPN - 12/14/2024 5:36 PM EDT [facility] Insurance won't pay for Victoza. [facility]03-19-2025 Telephone encounter Note* Telephone Encounter - Jacqueline Candelario APRN.CNP - 12/14/2024 5:12 PM EDT Ok to use generic form. Yes, I would wait to start new medication until after recovery of surgery. Thank you, Jacqueline Candelario APRN.DIRECTOR STATISTICAL PROGRAMMING [facility]03-19-2025 Telephone encounter Note* Telephone Encounter - [...] call patient with reply. Chelo Prasad RN [facility]03-19-2025 NoteHNO ID: [id number] Author: PREET FARRAR, DO Service: ? Author [...] tablet by mouth ever (more content not included)...[facility]03-19-2025 History of Present illness Narrative* Preet Farrar, DO - 12/14/2024 12:02 PM EDT Patient [...] morning on fasting at 8 am Insulin Peyton, Disposable, (BD ULTRA-FINE MARIA T PEN NEEDLE) [...] potential BSO by Dr. Isaac for upcoming LEARNING COORDINATOR surgery Preet Farrar DO To ER if develops chest pain, shortness of breath, or severe worsening of symptoms. Discussed risks, benefits, alternatives, and potential side effects of medications. Patient expressed understanding and agreed with the plan. Preet Farrar DO [address] [place] [address] documented in this encounterOhiohealth [facility]03-19-2025 Instructions* Patient Instructions* Preet Farrar DO - 12/14/2024 11:45 AM EDT Start the Victoza 0.6 mg once a day for blood sugar control Stop the Januvia when you start this for your diabetes documented in this encounterOhiohealth [facility]03-17-2025 Evaluation note* Diagnosis Onset Date Resolution [...] postoperative care noneactive February 06, 2025 10:49am [facility] Work Phone: 1(588) 770-623703-06-2025 Telephone encounter Note* Telephone Encounter - Yesi [...] Kitchen RN December 01, 2024 11:26 AM [facility]03-06-2025 Miscellaneous Notes* Telephone Encounter - [...] 01, 2024 11:26 AM documented in this encounterOhiohealth [facility]03-04-2025 Telephone encounter Note * Telephone Encounter [...] Coffey RN November 29, 2024 12:13 PM [facility]03-04-2025 Miscellaneous Notes* Telephone Encounter - Suzanna [...] 29, 2024 12:13 PM documented in this encounterOhiohealth [facility]02-14-2025 Instructions* Patient Instructions* Bean Isaac MD [...] hor ones are abnormal documented in this encounterOhiohealth Grady Memorial Hospital02-14-2025 NoteHNO ID: [id number] Author: MADIE BRUCE MA Service: ? Author Type: Nitro Worker Type: Progress Notes Filed: 11/11/2024 18:16 Note Text:[facility]02-14-2025 History of Present illness Narrative* Madie Bruce [...] carbs . 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 Bean Isaac MD Endocrinology Associate Staff [facility] Endocrinology and Metabolism [place] [phone] Medical Decision Making: Medical Decision Making Level: 1 - N/A documented in this encounterOhiohealth Grady Memorial Hospital02-14-2025 NoteHNO ID: [id number] Author: BEAN ISAAC MD Service: ? Author [...] carbs . Lifestyle -Exercise: 30 mins on RVX daily -Diet: Breakfast: 3 eggs, 1 slice [...] sweating, flushing, darkening o (more content not included)...[facility] 11-01-2024 Telephone encounter Note* Telephone Encounter - [...] Ulloa LPN November 01, 2024 8:03 AM [facility]02-04-2025 Miscellaneous Notes* Telephone Encounter - Fernanda [...] 01, 2024 8:03 AM documented in this encounterOhiohealth Grady Memorial Hospital01-11-2025 NoteHNO ID: [id number] Author: PREET FARRAR, DO Service: ? Author Type: Physician Type: Progress Notes Filed: 10/08/2024 08:39 Note Text: Patient presents with: Medicare Wellness Exam HPI: Deonte Blanco is a 69 year old female who presents to the office today for review of health conditions. Concerns today: She is starting to see Clinical Trial Leader for opinion regarding her thyroid and fatigue [...] by mouth once daily. blood sugar diagnostic ([employer] (MXD3D)TOUCH VERIO TEST STRIPS) test strip Test blood sugar(s) 4 times daily. Dx: Type 2 DM - Uncontrolled E11.65 Insulin: Yes dexAMETHasone (DECADRON) 1 mg tablet (more content not included)...[facility]01-11-2025 History of Present illness Narrative* Preet Farrar DO - 10/08/2024 8:34 AM EST Patient presents with: Medicare Wellness Exam HPI: Deonte Blanco is a 69 year old female who presents to the office today for review of health conditions. Concerns today: She is starting to see Clinical Trial Leader for opinion regarding her thyroid and fatigue [...] morning on fasting at 8 am Insulin Peyton, Disposable, (BD ULTRA-FINE MARIA T PEN NEEDLE) [...] 249.80, ICD10: E08.69 See above F/u with Clinical Trial Leader as scheduled. 5. Hypothyroidism, unspecified type - [...] agreed with the plan. Preet Farrar DO [address] [place] [address] * Preet Farrar DO - 10/08/2024 8:33 [...] provided Preet Farrar DO documented in this encounterOhiohealth Grady Memorial Hospital01-11-2025 NoteHNO ID: [id number] Author: PREET FARRAR DO Service: ? Author [...] - Personalized prevention plan provided Preet Farrar [facility]01-07-2025 Telephone encounter Note* Telephone Encounter - Sahara Mejia LPN - 10/04/2024 9:29 AM EST Pt. informed. [facility] Work Phone: 1(875) 571-512301-07-2025 Miscellaneous Notes* Telephone Encounter - Sahara Mejia [...] checked Thank you ! documented in this encounterOhiohealth Grady Memorial Hospital01-07-2025 Telephone encounter Note * Telephone Encounter - Marika Carolina PA-C - 10/04/2024 9:00 AM EST Labs ordered Marika Carolina PA-C 10/04/2024 [facility]01-07-2025 Telephone encounter Note* Telephone Encounter - Donna Kimble MA - 10/04/2024 7:47 AM EST Please see patient request she had blood work done 05/21 Donna Kimble MA [facility]01-07-2025 Telephone encounter Note* Telephone Encounter - Maegan Winters - 10/04/2024 7:30 AM EST Pt came in requesting lab work prior to her 10/07 tex, pt wants routine labs and her thyroid checked Thank you ! [facility]12-17-2024 Telephone encounter Note* Telephone Encounter - Preet Farrar DO - 09/13/2024 4:24 PM EST Noted Preet Farrar DO [facility]12-17-2024 Miscellaneous Notes* Telephone Encounter - Preet Farrar DO - 09/13/2024 4:24 PM EST Noted Preet Farrar DO * Telephone Encounter - Sahara Mejia LPN - 09/12/2024 1:17 PM EST Pt. dropped of glucose numbers for Dr. Farrar to review. documented in this encounterOhiohealth Grady Memorial Hospital12-17-2024 Evaluation note* Diagnosis Onset Date Resolution Status Admit Date Endometrial hyperplasia with out atypia acute September 13 1:45pm Endometrial hyperplasia with out atypia acute [...] 27, 2024 8:20am Hypertension chronic December 27 025 8:20am Renal artery stenosis chronic Dec 8:20am [facility] Work Phone: 1(903) 343-138512-16-2024 Telephone encounter Note* Telephone Encounter - Sahara Mejia LPN - 09/12/2024 1:17 PM EST Pt. dropped of glucose numbers for Dr. Farrar to review. [facility] Work Phone: 1(502) 733-435412-06-2024 Telephone encounter Note* Telephone Encounter - Yesi [...] daily. Yesi Kitchen RN 2024 11:04 AM [facility]12-06-2024 Miscellaneous Notes* Telephone Encounter - Yesi Kitchen [...] RN 2024 11:04 AM documented in this encounterOhiohealth Grady Memorial Hospital11-14-2024 Telephone encounter Note * Telephone Encounter [...] Nevarez LPN August 11, 2024 2:26 PM [facility]11-14-2024 Miscellaneous Notes* Telephone Encounter - Kerry [...] 11, 2024 2:26 PM documented in this encounterOhiohealth Grady Memorial Hospital11-14-2024 Instructions* Patient Instructions* Bean Isaac MD [...] for diabetes for now documented in this encounterOhiohealth Grady Memorial Hospital11-14-2024 NoteHNO ID: [id number] Author: BEAN ISAAC MD Service: ? Author [...] ablation for Grave's disease (more content not included)...[facility]-14-[facility] History of Present illness Narrative* Bean Isaac [...] pill . Lifestyle -Exercise: 30 mins on treEagerPanda daily -Diet: Breakfast: 3 eggs, 1 slice [...] mouth once daily. 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 Bean Isaac MD Endocrinology Associate Staff [facility] Endocrinology and Metabolism [place] [phone] Medical Decision Making: Problems: Moderate: 1+ chronic illnesses with change Data: Unique test result(s) reviewed: 3+ Independent interpretation of test from other physician/QHCP Risk: Moderate: Moderate risk from testing/treatment Medical Decision Making Level: 4 - Moderate documented in this encounterOhiohealth Grady Memorial Hospital11-12-2024 NoteHNO ID: [id number] Author: JACKSON SARAVIA MA Service: ? Author Type: Nitro Worker Type: Progress Notes Filed: 08/09/2024 12:51 Note Text: POPULATION HEALTH NAVIGATION OUTREACH Action/August 09, 2024 AWV INITIATIVE Reason for Outreach Care Gap/HCC or Scheduling Wellness Visits Care Gaps due: Medicare Annual Wellness Visit Patient Contacted: Unable or unnecessary to reach patient: Flipped existing appointment Updated appointment notes Navigation Signature: Jackson Saravia MA August 09, 2024 12:51 [facility]11-12-2024 History of Present illness Narrative* Jackson Saravia MA - 08/09/2024 12:51 PM EST POPULATION HEALTH NAVIGATION OUTREACH Action/I August 09, 2024 AWV INITIATIVE Reason for Outreach Care Gap/HCC or Scheduling Wellness Visits Care Gaps due: Medicare Annual Wellness Visit Patient Contacted: Unable or unnecessary to reach patient: Flipped existing appointment Updated appointment notes Navigation Signature: Jackson Saravia MA August 09, 2024 12:51 PM documented in this encounterOhiohealth Grady Memorial Hospital11-12-2024 NotePatient Outreach (NETNAV) FRANCISDEONTE G ([id number]) 1955 F Date Time Provider Department 08/09/24 [...] tablet by mouth once daily. - Insulin Peyton, Disposable, (BD ULTRA-FINE MARIA T PEN NEEDLE) [...] 03/23/2024 Encounter Status:Closed by JACKSON SARAVIA on 08/09/24[facility] 07-26-2024 [facility] Medical Records Department [address] [place] [id number] History Physical Exam 07/26/24 0645 MR#: [id number] Acct: [id number] Name: DEONTE BLANCO Rep #: [id number] : 1955 68 From: Anushka Isaac MD PCP: Dr. Preet Farrar, DO Status:[facility] Location: [place] [address] History and Physical Intake Vital Signs 07/07/2413:26 07/19/2407:53 Height 5 ft 5 ft Weight: 178 lb 177 lb BMI 34.7 34.5 BP 171/77 H 155/64 H Blood Pressure Location Lt brachial Position Sitting Pulse 70 Pulse Source Monitor Intake Visit Reasons: D C possible hysteroscopy Chief Complaint: surgical consult atypica cells on EMB- non cancerous Window Tinter Required: No Is patient in pain?: No Feel stressed/tense/nervous/anxious/difficulty sleeping: to some extent (some anxiety related to upcoming procedure) Allergies metformin Allergy (Severe, Verified 07/19/24 10:43) Hivesprednisone Allergy (Intermediate, Verified 07/19/24 10:43) Itchingaspirin Allergy (Verified 07/19/24 10:43) mouth swellinggluten Allergy (Verified 07/19/24 10:43) Abd cramps/diarrheaibuprofen Allergy (Verified 07/19/24 10:43) mouth swellingSulfa (Sulfonamide Antibiotics) Allergy (Verified 07/19/24 10:43) pt can't remember Medications ???Medication ???Instructions ???Recorded ???Confirmed ???Type ergocalciferol (vitamin D2) 1,250 50,000 unit PO MOFR SUPPLEMENT 12/18/20 07/19/24 History mcg (50,000 unit) capsule thyroid (pork) 120 mg tablet 120 tablet PO DAILY THYROID 12/18/20 07/19/24 History atorvastatin 80 mg tablet 80 mg PO QHS cholesterol #30 tabs 11/04/22 07/19/24 Rx clopidogrel 75 mg tablet 75 mg PO DAILY BLOOD THINNER #30 11/04/22 07/19/24 Rx tabs carvedilol 6.25 mg tablet 6.25 mg PO BID 03/05/24 07/19/24 History spironolactone 25 mg tablet 25 mg PO DAILY 03/05/24 07/19/24 History glimepiride 2 mg tablet 2 mg PO BID #60 tabs 03/09/24 07/19/24 Rx clonidine HCl 0.1 mg tablet 0.1 mg PO Q8H PRN PRN blood 05/22/24 07/19/24 History pressure ondansetron 4 mg disintegrating 4 mg PO Q8H PRN PRN Nausea #10 tabs 05/22/24 07/19/24 Rx tablet pantoprazole 40 mg tablet,delayed 40 mg PO DAILY #30 tabs 05/22/24 07/19/24 Rx release vitamin C 30 mg-zinc citrate 1.1 1 tab PO DAILY 05/22/24 07/19/24 History mg-elderberry 25 mg chewable tablet (Sambucus Elderberry) sitagliptin phosphate 100 mg 100 mg PO QDAY 07/07/24 07/19/24 History tablet (Januvia) insulin glargine 100 unit/mL (3 16 unit subcut DAILY 07/19/24 07/19/24 History mL) subcutaneous pen (Lantus Solostar U-100 Insulin) Is last menstrual period known: No Post menopausal: Yes Patient : No : No PFSH Medical History Marijuana smoker Anxiety Depression Diabetes Former smoker Stroke/cerebrovascular accident Former tobacco use Head injury Near syncope Elevated troponin Abnormal EKG Hyponatremia Prolonged QT interval Polyneuropathy Occlusion of left internal carotid artery Ischemic stroke 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 Irritable bowel syndrome Celiac disease Ulcerative colitis Muscle spasm Hypothyroidism Hypertension Vitamin D deficiency Diabetes mellitus Lumbar spinal stenosis Lumbar disc herniation with radiculopathy Ambulatory dysfunction Intractable back pain Surgical History Hx of umbilical hernia repair S/P tubal ligation S/P cholecystectomy S/P tonsillectomy and adenoidectomy History of lumbar fusion History of lumbar discectomy Family History Mother Heart diseaseFather Heart disease Hypertension CAD (coronary artery disease) Myocardial infarction Thyroid disorder Diabetes Social History (Updated 07/07/24 @ 14:42 by Jemima Gonzalez) adopted: No household members: none number of children: 3 sexually active: Yes Smoking Status: Former smoker alcohol intake: never substance use type: marijuana and other details: Medical cannabis, usually daily. seatbelt use: always do you feel safe at home: Yes HPI D C possible hysteroscopy Details: DEONTE BLANCO is a 68 year old who presents for preop visit planning d and c hysterosocpy Female Reproductive History Menopausal Symptoms: No night sweats History 3 Elective abortions Hx Para 3 Spontaneous abortions Hx # Term Pregnancies Ectopic pregnancies Hx # Pregnancies Multiple births # of living children 3 Past Pregnancies Del. Date Name GA/Weeks Outcome Route Bth Weight Gen Labor Lgth Anesthesia Del Locatn Provider FOB Unknown 1985 Alicia Unknown 1989 Zoey Unknown 1996 Jeffrey Dalton (more content not included)...[facility]10-28-2024 Telephone encounter Note* Telephone Encounter - Adelita Gomez MA - 07/25/2024 4:48 PM EDT Pt notified. Adelita Gomez MA [facility]10-28-2024 Miscellaneous Notes* Telephone Encounter - Adelita Gomez MA - 07/25/2024 4:48 PM EDT Pt notified. Adelita Gomez MA * Telephone Encounter - Preet Farrar DO - 07/25/2024 4:35 PM EDT Noted, would still recommend increased dose of lantus as below Preet Farrra DO * Telephone Encounter - Sahara Mejia [...] Patient is having DNC done on 07/26/2024. [facility] had faxed over surgical clearance form on 07/19/2024. This is on provider's desk. Patient is very worried about her blood sugars. * Telephone Encounter - Sahara Mejia LPN - 07/15/2024 10:55 AM EDT Blood Sugar results brought in by patient.Placed on Dr. Farrar desk. documented in this encounterOhiohealth Grady Memorial Hospital10-28-2024 Telephone encounter Note * Telephone Encounter - Preet Farrar DO - 07/25/2024 4:35 PM EDT Noted, would still recommend increased dose of lantus as below Preet Farrar DO [facility]10-28-2024 Telephone encounter Note* Telephone Encounter - Sahara Mejia LPN - 07/25/2024 10:55 AM EDT Forms faxed as below. [facility]10-28-[facility] Miscellaneous Notes* Telephone Encounter - Sahara Coulter LPN - 07/25/2024 10:55 AM EDT Forms faxed as below. * Telephone Encounter - Chelo Prasad RN - 07/25/2024 10:48 AM EDT Lali at [facility] called again regarding this pt. Pt is to have procedure tomorrow and they are asking if Dr. Farrar's office received surgical clearance forms last week-they are in need of them being completed. Asking if someone can call them today with an update on the forms. Call Lali at [phone]. Chelo Prasad RN * Telephone Encounter - Sahara eMjia LPN - 07/19/2024 4:31 PM [address]T Form on Dr. Farrar's desk * Telephone Encounter - Annmarie Canada RN - 07/19/2024 11:27 AM EDT Lali with [facility] called in and reports she had faxed over the surgical clearance form on 07/15/24. I let them know it wasn't charted that they had received it, so she is goingto send it again. Pt is going to have a DNC on 07/26/24, please fill out and fax back. Faxed recentthyroid labs and labs from April to [phone]. Let them know the other recent labs were external, and they would have to get them from [facility]. documented in this encounterOhiohealth Grady Memorial Hospital10-28-2024 Telephone encounter Note * Telephone Encounter - Chelo Prasad RN - 07/25/2024 10:48 AM EDT Lali at [facility] called again regarding this pt. Pt is to have procedure tomorrow and they are asking if Dr. Farrar's office received surgical clearance forms last week-they are in need of them being completed. Asking if someone can call them today with an update on the forms. Call Lali at [phone]. Chelo Prasad RN [facility]10-28-2024 Telephone encounter Note* Telephone Encounter - Sahara Mejia LPN - 07/25/2024 9:55 AM EDT Pt. increased Amaryl to 3 mg. didn't feel it was working. Pt. feels it has been a few points lower around 150's to 160's [facility]10-26-2024 Telephone encounter Note* Telephone Encounter - Preet Farrar DO - 07/23/2024 11:33 AM EDT Does she need a refresher for nutrition or diabetes education? Increase lantus to 18 units once a day SQ Preet Farrar DO [facility]10-24-2024 Telephone encounter Note* Telephone Encounter - Lisa Aparicio RN - 07/21/2024 8:18 AM EDT Patient notified of results and provider's instructions. Patient verbalizes understanding. Lisa Aparicio RN [facility]10-24-2024 Miscellaneous Notes* Telephone Encounter - Lisa [...] tablet Preet Farrar DO documented in this encounterOhiohealth Grady Memorial Hospital10-24-2024 Telephone encounter Note * Telephone Encounter [...] having DNC done on 07/26/2024. [facility] had faxed over surgical clearance form on 07/19/2024. This is on provider's desk. Patient is very worried about her blood sugars. [facility]10-23-[facility] Telephone encounter Note* Telephone Encounter - [...] hormone in this tablet Preet Farrar DO [facility]10-22-2024 Telephone encounter Note* Telephone Encounter - Sahara Mejia LPN - 07/19/2024 4:31 [address] Form on Dr. Farrar's desk [facility]10-22-2024 Telephone encounter Note* Telephone Encounter - Annmarie Canada RN - 07/19/2024 11:27 AM EDT Lali with [facility] called in and reports she had faxed over the surgical clearance form on 07/15/24. I let them know it wasn't charted that they had received it, so she is goingto send it again. Pt is going to have a DNC on 07/26/24, please fill out and fax back. Faxed recentthyroid labs and labs from April to [phone]. Let them know the other recent labs were external, and they would have to get them from [facility]. [facility]10-18-2024 Telephone encounter Note* Telephone Encounter - Sahara Mejia LPN - 07/15/2024 10:55 AM EDT Blood Sugar results brought in by patient.Placed on Dr. Farrar desk. [facility]09-20-2024 Telephone encounter Note* Telephone Encounter - Suzanna Coffey RN - 06/17/2024 11:42 AM EDT Patient reports [facility] ER prescribed her pantoprazole 40 mg daily, about a month ago, and she needs refills, only has 5 pills left. States she forgot to tell pcp about this at her recent appt. Last ov with pcp: 06-14-24 Next ov: 10-07-24 [facility]09-20-2024 Miscellaneous Notes* Telephone Encounter - Suzanna Coffey RN - 06/17/2024 11:42 AM EDT Patient reports [facility] ER prescribed her pantoprazole 40 mg daily, about a month ago, and she needs refills, only has 5 pills left. States she forgot to tell pcp about this at her recent appt. Last ov with pcp: 06-14-24 Next ov: 10-07-24 documented in this encounterOhiohealth Grady Memorial Hospital09-18-2024 Telephone encounter Note * Telephone Encounter - Kerry Nevarez LPN - 06/15/2024 9:53 AM EDT Patient calling asking to have another pen needle rx, she called pharmacy since other rx was causing so much bruising for her. Pending new rx to file to [facility] pharmacy. Please advise The patient has been [...] Requested Prescriptions Pending Prescriptions Disp Refills Insulin Peyton, Disposable, (BD ULTRA-FINE MARIA T PEN NEEDLE) 32 gauge x 5/32 100 Each 11 Sig: Use one needle for each dose. 1/day. Kerry Nevarez LPN June 15, 2024 9:58 AM [facility]09-18-2024 Miscellaneous Notes* Telephone Encounter - Kerry Nevarez LPN - 06/15/2024 9:53 AM EDT Patient calling asking to have another pen needle rx, she called pharmacy since other rx was causing so much bruising for her. Pending new rx to file to [facility] pharmacy. Please advise The patient has been [...] Requested Prescriptions Pending Prescriptions Disp Refills Insulin Peyton, Disposable, (BD ULTRA-FINE MARIA T PEN NEEDLE) 32 gauge x 5/32 100 Each 11 Sig: Use one needle for each dose. 1/day. Kerry Nevarez LPN June 15, 2024 9:58 AM documented in this encounterOhiohealth Grady Memorial Hospital09-17-2024 NoteHNO ID: [id number] Author: PREET FARRAR, DO Service: ? Author [...] thickened endometrial lining. Has been seen by LEARNING COORDINATOR and had EMB and will be having a consult with Dr. Froylan Farnsworth LEARNING COORDINATOR on 07/07 to potentially schedule MEREDITH. She [...] 1 tablet by mouth once daily. Insulin Peyton, Disposable, (PEN NEEDLE) 29 gauge x 1/2 Use one needle per dose. 1 per day glimepiride (AMARYL) 2 mg tablet Take 1 tablet by mouth two times a day with meals. SITagliptin phosphate (JANUVIA) 100 mg tablet Take 1 tablet by mouth once daily. carvedilol (COREG) 6.25 mg tablet Take 1 tablet by mouth two times a day with (more content not included)...[facility]09-17-[facility] History of Present illness Narrative* Preet Farrar, [...] thickened endometrial lining. Has been seen by LEARNING COORDINATOR and had EMB and will be having a consult with Dr. Froylan Farnsworth LEARNING COORDINATOR on 07/07 to potentially schedule MEREDITH. She [...] 1 tablet by mouth once daily. Insulin Peyton, Disposable, (PEN NEEDLE) 29 gauge x 1/2 [...] medication with 30 mg on Mon, Wed, Thu - ARMOUR THYROID 30 MG TABLET - [...] agreed with the plan. Preet Farrar DO [address] [place] [address] documented in this encounterOhiohealth Grady Memorial Hospital08-28-2024 History of Present illness Narrative* Catalina Young APRN.DIRECTOR STATISTICAL PROGRAMMING - 05/25/2024 2:40 PM EDT 05/25/2024 Patient presents with: ER F/U: 05/22/2024 [facility] for left lower quadrant pain SUBJECTIVE: This is a 68 year old that is here today for Above Complaints. HOSPITAL/ER FOLLOW UP: Reason for visit: abdominal pain Which facility: [facility] Date of visit: 05/22/2024 Diagnosis: [...] 1 tablet by mouth once daily. Insulin Peyton, Disposable, (PEN NEEDLE) 29 gauge x 1/2 [...] by Catalina Young APRN.DEREK - follow-up with LEARNING COORDINATOR and PCP Catalina Young APRN.DIRECTOR STATISTICAL PROGRAMMING Prescription instructions reviewed with patient as applicable. [...] Level: 4 - Moderate documented in this encounterOhiohealth Grady Memorial Hospital08-26-2024 Telephone encounter Note * Telephone Encounter [...] Coffey RN May 23, 2024 1:16 PM [facility]08-26-2024 Miscellaneous Notes* Telephone Encounter - Suzanna [...] 23, 2024 1:16 PM documented in this encounterOhiohealth Grady Memorial Hospital08-26-2024 Telephone encounter Note * Telephone Encounter - Fernanda Ulloa LPN - 05/23/2024 9:31 AM EDT Pt called in and was seen in the [facility] ER last night 05-22-24 for left side abdominal pain. Pt had a CT done. Showed thickened endometrial lining of 1/4 cm no other acute findings. pt's provider/team not available. Pt scheduled with provider. Fernanda Ulloa LPN [facility]08-26-2024 Miscellaneous Notes* Telephone Encounter - Fernanda Ulloa LPN - 05/23/2024 9:31 AM EDT Pt called in and was seen in the [facility] ER last night 05-22-24 for left side abdominal pain. Pt had a CT done. Showed thickened endometrial lining of 1/4 cm no other acute findings. pt's provider/team not available. Pt scheduled with provider. Fernanda Ulloa LPN documented in this encounterOhiohealth Grady Memorial Hospital08-13-2024 Instructions* Patient Instructions* Bean Isaac MD - 05/10/2024 2:25 PM EDT Please continue the same dose of medication for now- please bring log next time documented in this encounterOhiohealth Grady Memorial [facility] Telephone encounter Note * Telephone Encounter - Sahara Mejia LPN - 05/10/2024 2:05 PM EDT Pt. dropped of Bp readings. Placed on Dr. Farrar's desk. [facility] Work Phone: 1(602) 793-759408-13-2024 Miscellaneous Notes* Telephone Encounter - Sahara Mejia LPN - 05/10/2024 2:05 PM EDT Pt. dropped of Bp readings. Placed on Dr. Farrar's desk. documented in this encounterOhiohealth Grady [facility] Hospital08-13-2024 History of Present illness Narrative* Bean Isaac [...] awareness: n/a Lifestyle -Exercise: 30 mins on RVX daily -Diet: Breakfast: 3 eggs, 1 slice [...] Outpatient Medications Medication Sig Dispense Refill Insulin Peyton, Disposable, (PEN NEEDLE) 29 gauge x 1/2 [...] 100 Each 11 flash glucose scanning reader (Acendi InteractiveSTYLE TARA 2 READER) 1 Device as directed. 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 Bean Isaac MD Endocrinology Associate Staff [facility] Endocrinology and Metabolism [place] [phone] Medical Decision Making: Problems: Moderate: 1+ chronic illnesses with change Data: Unique test result(s) reviewed: 3+ Independent interpretation of test from other physician/QHCP Medical Decision Making Level: 4 - Moderate documented in this encounterOhiohealth Grady Memorial Hospital07-23-2024 Miscellaneous Notes* Telephone Encounter - Sahara [...] notified that reading are currently in Dr. aFrrar's box to be reviewed. Patient voiced understanding. Patient states that she is going to drop off more blood sugar readings to go along with ones she previously dropped off. Lisa Aparicio RN documented in this encounterOhiohealth Grady Memorial Hospital07-23-2024 Telephone encounter Note * Telephone Encounter - Sahara Mejia LPN - 04/19/2024 4:56 PM EDT Pt. informed. [facility]07-23-2024 Telephone encounter Note* Telephone Encounter - Preet Farrar DO - 04/19/2024 4:49 PM EDT Ok to take the Lantus in the AM or the PM, whichever she will be consistent with daily. Increase dose to 12 units and notify in 2-3 weeks her blood glucose readings. They are improving Preet Farrar DO [facility]07-23-2024 Telephone encounter Note* Telephone Encounter - Yesi Kitchen RN - 04/19/2024 4:25 PM EDT Pt calling in wondering if Dr. Farrar has reviewed her blood sugars. She is unsure if she needs to be changing her dosage of insulin. She was just started on insulin on 6/24/24. Pt states she is taking 10 units [...] sugars pt has already brought in too. [facility]07-16-2024 Telephone encounter Note* Telephone Encounter - Sofia Rodriguez MA - 04/12/2024 4:04 PM EDT Glucose readings on JG desk. Will await new glucose readings. Sofia Rodriguez MA [facility]07-16-2024 Telephone encounter Note* Telephone Encounter - [...] she previously dropped off. Lisa Aparicio RN [facility]06-26-2024 Telephone encounter Note* Telephone Encounter - Donna Kimble MA - 03/23/2024 10:47 AM EDT Patient was notified Donna Kimble MA [facility]06-26-2024 Miscellaneous Notes* Telephone Encounter - Donna [...] Requested Prescriptions Signed Prescriptions Disp Refills Insulin Peyton, Disposable, (PEN NEEDLE) 29 gauge x 1/2 [...] Needs an Rx. Pt uses [facility] in [place]. Gretchen Dorantes LPN * Telephone Encounter - Preet Farrar DO - 03/22/2024 7:27 AM EDT Please inform patient that her free t4 level is low. TSH is stable. What does of armour thyroid supplement is she taking? Any missed doses? /Preet Farrar DO documented in this encounterOhiohealth Grady Memorial Hospital06-26-2024 Telephone encounter Note * Telephone Encounter - Preet Farrar DO - 03/23/2024 7:54 AM EDT Needs to increase her armor thyroid to 120 mg 7 days a week Preet Farrar DO [facility]06-25-2024 Telephone encounter Note* Telephone Encounter - [...] missed any doses.. Please call and advise. [facility]06-25-2024 Telephone encounter Note* Telephone Encounter - Preet Farrar DO - 03/22/2024 4:45 PM EDT The following approved medication requests have been transmitted electronically. Requested Prescriptions Signed Prescriptions Disp Refills Insulin Peyton, Disposable, (PEN NEEDLE) 29 gauge x 1/2 100 Each 11 Sig: Use one needle per dose. 1 per day Authorizing Provider: PREET FARRAR DO [facility]06-25-2024 Telephone encounter Note* Telephone Encounter - [...] list. Pt needs needles by tomorrow morning. [facility]06-25-2024 Telephone encounter Note* Telephone Encounter - [...] Needs an Rx. Pt uses [facility] in [place]. Gretchen Dorantes LPN [facility]06-25-2024 Telephone encounter Note* Telephone Encounter - Preet Farrar DO - 03/22/2024 7:27 AM EDT Please inform patient that her free t4 level is low. TSH is stable. What does of armour thyroid supplement is she taking? Any missed doses? /Preet Farrar DO T [facility]06-24-2024 History of Present illness Narrative* Preet [...] GI upset. When she was seen at [facility] for hyperglycemia and fatigue as [...] managing myla Farrar DO documented in this encounterOhiohealth Grady Memorial Hospital06-13-2024 History of Present illness Narrative* Suzanna Coffey RN - 03/10/2024 1:20 PM EDT Patient is scheduled for Hosp f/u with Dr. Farrar on 03-21-24. * Jacqueline Candelario APRN.CNP - 03/10/2024 12:24 PM EDT Please make appointment. Thank you, Jacqueline Candelario APRN.DIRECTOR STATISTICAL PROGRAMMING * Suzanna Coffey RN - 03/10/2024 8:06 AM EDT TRANSITION CARE MANAGEMENT (TCM) INITIAL CONTACT Nitro Worker Outreach Provider Action/FYI: Patient would like to discuss ozempic- concern hospital stopping it- and what to do about her DM. Initial contact with patient post discharge, spoke to patient. Patient identified by name and . TRANSITION CARE MANAGEMENT INITIAL OUTREACH DOCUMENTATION: 03/10/2024 Date of Outreach: Outreach Attempt 1: Contact Made Date of Discharge 03/09/2024 SUMMARY: -Pt discharged from [facility] on 03-09-24. -Admitted for: Gastrointestinal [...] from recent hospitalization: Epic documented in this encounterOhiohealth Grady [facility] Hospital06-03-2024 Telephone encounter Note * Telephone Encounter - [...] Please advise. Thank you. Neva Thomas LPN. [facility]06-03-2024 Miscellaneous Notes* Telephone Encounter - Neva [...] you. Neva Thomas LPN. documented in this encounterOhiohealth Grady Memorial Hospital05-20-2024 Telephone encounter Note * Telephone Encounter - Latosha Osei RN - 02/15/2024 4:32 PM EDT Spoke with patient. Given message from provider's office. Patient verbalizes understanding. Latosha Osei RN [facility]05-20-2024 Miscellaneous Notes* Telephone Encounter - Latosha [...] normal. No concerns. Thank you, Jacqueline Candelario APRN.DIRECTOR STATISTICAL PROGRAMMING * Telephone Encounter - Latosha Osei RN [...] recommendations. Latosha Osei RN documented in this encounterOhiohealth Grady Memorial Hospital05-20-2024 Telephone encounter Note * Telephone Encounter - Jacqueline Candelario APRN.CNP - 02/15/2024 4:28 PM EDT No dietary restrictions needed -- she eats very healthy to begin with. Elevation after meals is expected and normal. No concerns. Thank you, Jacqueline Candelario APRN.DEREK [facility]05-20-2024 Telephone encounter Note* Telephone Encounter - [...] Asking for dietary recommendations. Latosha Osei, RN [facility]05-07-2024 Telephone encounter Note* Telephone Encounter - [...] advise. Thank you. Annmarie Canada RN. T [facility]05-07-2024 Miscellaneous Notes* Telephone Encounter - Annmarie [...] you. Annmarie Canada RN. documented in this encounterOhiohealth Grady Memorial Hospital05-01-2024 History of Present illness Narrative* Jacqueline Candelario APRN.DIRECTOR STATISTICAL PROGRAMMING - 01/27/2024 10:56 AM EDT Chief Complaint [...] agreeable to treatment plan. Jacqueline Corbin APRN.DEREK [address] [place] [address] documented in this encounterOhiohealth Grady Memorial Hospital04-17-2024 Miscellaneous Notes* Telephone Encounter - Kerry Nevarez LPN - 01/13/2024 2:48 PM EDT Patient returned call and went over notes below from Jacqueline Candelario JUSTICE COURT JUDGE with understanding. Aware rx sent to pharmacy. [...] treated for yeast infection on 01/01 from [facility]. Now she has same symptoms itching and white vaginal drainage. Patient now wondering if it is from taking Jardiance. Patient said her blood sugars have been higher in the morning at times. She said she is taking Ozempic and Jardiance. Patient uses [facility] for her pharmacy. Please advise documented in this encounterOhiohealth Grady Memorial Hospital04-10-2024 History of Present illness Narrative* Jacqueline Candelario APRN.DIRECTOR STATISTICAL PROGRAMMING - 01/06/2024 11:00 AM EDT Chief Complaint [...] encouraged pt to consider speaking with a patrol sergeant sheriff's office/transformation consultant to discuss diet management, if agreeable. [...] advise her. [facility] d/t vaginal itching. UTI and [...] day with meals. flash glucose scanning reader (ComQi TARA 2 READER) 1 Device as directed. [...] Patient agreeable to treatment plan. Jacqueline Corbin APRN.DIRECTOR STATISTICAL PROGRAMMING [address] [place] [address] documented in this encounterOhiohealth Grady Memorial Hospital04-10-2024 Miscellaneous Notes* Telephone Encounter - Jacqueline [...] encouraged pt to consider speaking with a patrol sergeant sheriff's office/transformation consultant to discuss diet management, if agreeable. Patient would rather hold off on speaking with a specialist as of this time. Asking if Dr. Farrarwould be able to advise her at this time? Thank you. documented in this encounterOhiohealth Grady Memorial Hospital04-10-2024 Miscellaneous Notes* Telephone Encounter - Fernanda [...] you. Fernanda Ulloa LPN. documented in this encounterOhiohealth Grady Memorial Hospital04-07-2024 Miscellaneous Notes* Telephone Encounter - Altagracia Welch APRN.DIRECTOR STATISTICAL PROGRAMMING - 01/03/2024 8:03 AM EDT Patient identified by name and date of . Patient advised of + yeast and BV test result. She was prescribed diflucan at yesterday's visit. I sent Rx for Flagyl to her pharmacy today. Altagracia Welch APRN.DEREK documented in this encounterOhiohealth Grady Memorial Hospital04-06-2024 History of Present illness Narrative* Jemima [...] surgery Denies using homeopathic or OTC medicines COMMERCIAL PEST CONTROL REPRESENTATIVE PCP is Dr. Farrar The history is provided by the patient. No neurophysiological technician was used. Vaginal Problem This is a [...] nursing note reviewed. Exam conducted with a hl7 developer present. Constitutional: General: She is not in [...] mg POC reveals sugar 140 Jemima Iyer APRN.DIRECTOR STATISTICAL PROGRAMMING documented in this encounterOhiohealth Grady Memorial Hospital04-06-2024 Miscellaneous Notes* Telephone Encounter - Latosha [...] body) 8. : NO Protocols used: Vaginal Uabattyp-BDPSQ-DN, Vulvar Tstemehr-JXZKK-CX documented in this encounterOhiohealth Grady Memorial Hospital03-13-2024 History of Present illness Narrative* Preet Farrar, - 12/09/2023 6:05 PM EDT No [...] in follow up after this by her Tmd Teacher Assistant Dr. Overton that she sees for BLOOD [...] week. She is willing to see a warehouse picker- hasn't had any obvious cardiac symptoms but [...] - ICD9: 440.1, ICD10: I70.1 F/u with Tmd Teacher Assistant, hx of 6. Other ulcerative colitis without [...] with the plan. Preet Farrar DO [address] [place] [address] documented in this encounterOhiohealth Grady Memorial Hospital03-12-2024 Miscellaneous Notes* Telephone Encounter - Kerry [...] you. Kerry Nevarez LPN. documented in this encounterOhiohealth Grady Memorial Hospital02-28-2024 Miscellaneous Notes* Telephone Encounter - Kerry Nevarez LPN - 11/25/2023 9:50 AM EST Phoned patient aware rx was sent to pharmacy. * Telephone Encounter - Jacqueline Candelario APRN.CNP - 11/25/2023 9:27 AM EST The following approved medication requests have been transmitted electronically. Requested Prescriptions Signed Prescriptions Disp Refills busPIRone (BUSPAR) 5 mg tablet 90 tablet 2 Sig: Take 1 tablet by mouth three times a day as needed. Authorizing Provider: JACQUELINE CANDELARIO APRN.DIRECTOR STATISTICAL PROGRAMMING * Telephone Encounter - Gretchen Dorantes LPN - 11/25/2023 8:18 AM EST At office visit 11/19/23 pt & [employer] discussed Burspar, pt has decided she would like to try it. Please send Rx to [facility] in [place] & notify pt when it has been sent in. Gretchen Dorantes LPN documented in this encounterOhiohealth Grady Memorial Hospital02-28-2024 Hospital Discharge instructions Patient Education 11/25/2023 [...] that stimulate the heart. This includes many dvid-gcg-beafsop cold and sinus decongestant pills and sprays, as well as diet pills. Check the warnings about high blood pressure onthe label. Before buying any xigd-hsi-kjpwsao medicines or supplements, always ask the pharmacist [...] one of these at most pharmacies. The [place] [employer] recommends the following guidelines for [...] face You have problems speaking or seeing 6301-3478 [employer]. [address] [place] [address]. All rights reserved. This information is not intended as a substitute for professional medical care. Always follow yourhealthcare professional's instructions. Follow Up Care 11/24/2023 18:46:50 With:RAY OVERTON Address: [address] [place] [phone] When:2-4 days [facility] 02-28-2024 Emergency department Discharge summary Discharge Instructions Thank you for allowing [facility] to assist you with your healthcare needs. The following is importantdischarge information regarding your hospital visit. Diagnosis from Today's Visit Chest pain What to Do Next Instructions from Your Care Team No qualifying data available. Post Acute Orders No qualifying data available. You Need to Schedule the Following Appointments Follow Up with RAY OVERTON When Within 2-4 days Where: [id number] [place] [phone] Allergies Glutens metFORMIN predniSONE salicylates sulfa drug [...] BY MOUTH AT BEDTIME Unchanged thyroid desiccated (Wray Thyroid 120 mg oral tablet) 32 EA, [...] that stimulate the heart. This includes many wium-lkd-daagjsl cold and sinus decongestant pills and sprays, as well as diet pills. Check the warnings about high blood pressure onthe label. Before buying any tlto-fpf-ewjhzxw medicines or supplements, always ask the pharmacist [...] one of these at most pharmacies. The [place] [employer] recommends the following guidelines for [...] face You have problems speaking or seeing 9403-5178 [employer]. [address] [place] [address], [place] [address]. All rights reserved. This information is not intended as a substitute for professional medical care. Always follow yourhealthcare professional's instructions. Additional Information VACCINATE! IT SAVES LIVES! Members of the community who have not yet received the COVID-19 vaccine and would like to receive it can visit one of [facility] vaccine clinics. There are many vaccine clinic locations within the State. For locations and available times, please visit www.gettheshot.coronavirus.[place].gov/. It is important to note that some COVID mobile vaccine clinics are held outdoors and may be canceled in rainy or stormy conditions. To learn more about pediatric vaccinations (ages 5-11), we invite you to visit the [facility] webpage. [email or web address]://[email or web address]/[email or web address]-Bvhgjrgolim-Rloohcodvi-Lttss-Diw stions.htmlTo learn more about the COVID-19 vaccine, we invite you to visit the CDC website for a list of frequently asked questions. https://www.cdc.gov/coronavirus/2019-ncov/vaccines/faq.html [facility] Patient [facility] Access Instructions: Stay connected with your healthcare team and access your personal medical information anytime with the [facility] Patient Portal. If you would like a full copy of your medical records please contact the [facility] Medical Records Department Thursday through Thursday between 8a.m. and 4:30p.m. Please follow the directions below to access the portal: 1.Access the email account you provided upon registration to the hospital.2.Look for an invitation email from [facility].3.Open the email and access the invitation link: Accept Invitation to [facility]4.Fill in the required drake to create your account. Sign into [email or web address] with your username and password that you [...] you will allow to register on the [facility] Patient Portal for access to your information. You can also access the [facility] Patient Portal on the [employer] tex. Simply click on Health Records under [employer] and then click on the [facility] logo. [...] Call your local pharmacy or go to [email or web address] to find one close to you.3.Make use of household items: Use cat litter or old coffee grounds to dispose medications if other options arenot available. Mix your drugs with these household products, seal them in an airtight container andthrow it into the garbage. Call [facility]: [phone] to be sure your drugs can be [...] aware that I should contact my doctor. Patient/Rope Tow Operator Signature: Date/Time: Relationship to Patient: Witness Name/Signature: Date/Time: [facility] [id number] Note ORIGINAL EXAMINATION: ONE XRAY VIEW OF [...] Sign Date: 11/24/2023 7:08:29 PM Ordering Provider: [facility]02-27-2024 NoteSINUS OR ECTOPIC ATRIAL RHYTHM ANTEROSEPTAL INFARCT, OLD Electronic Signature: ELOISA LEVIN MD 11/25/2023 02:10:[address] [place] [address] 02-22-2024 Miscellaneous Notes* Telephone Encounter - Jacqueline Candelario APRN.CNP - 11/19/2023 11:29 AM EST We discussed lab results at appointment today. Thank you, Jacqueline Candelario APRN.CNP documented in this encounterOhiohealth Grady Memorial Hospital02-22-2024 History of Present illness Narrative* Jacqueline [...] time a week. flash glucose scanning reader (Acendi InteractiveSTYLE TARA 2 READER) 1 Device as directed. [...] agreeable to treatment plan. Jacqueline Corbin APRN.CNP [address] [place] [address] documented in this encounterOhiohealth Grady Memorial Hospital02-21-2024 Miscellaneous Notes* Telephone Encounter - Sofia [...] you, Jacqueline Candelario APRN.DEREK documented in this encounterOhiohealth Grady Memorial Hospital02-16-2024 Miscellaneous Notes* Telephone Encounter - Jacqueline [...] pressure. Lisa Aparicio RN documented in this encounterOhiohealth Grady Memorial Hospital02-16-2024 History of Present illness Narrative* Jacqueline [...] day of the appointment., Patient provided with [employer] education al material., and Advise patient to continue to monitor BP at home and record readings. COMPUTER TECHNOLOGY INSTRUCTOR/MA/THUA: Written education material provided RN Only Education: [...] Patient agreeable to treatment plan. Jacqueline Corbin APRN.DIRECTOR STATISTICAL PROGRAMMING [address] [place] [address] documented in this encounterOhiohealth Grady Memorial Hospital02-01-2024 History of Present illness Narrative* Jacqueline [...] Patient agreeable to treatment plan. Jacqueline Corbin APRN.DIRECTOR STATISTICAL PROGRAMMING [address] [place] [address] documented in this encounterOhiohealth Grady Memorial Hospital11-13-2023 Miscellaneous Notes* Telephone Encounter - Gini [...] pt. Fernanda Ulloa LPN documented in this encounterOhiohealth Grady Memorial Hospital11-03-2023 Miscellaneous Notes* Telephone Encounter - Lisa Aparicio RN - 07/31/2023 12:09 PM EDT Patient notified of results. Patient verbalizes understanding. Lisa Aparicio RN * Telephone Encounter - Preet Farrar DO - 07/31/2023 7:49 AM EDT Please inform patient that her potassium is normal Preet Farrar DO documented in this encounterOhiohealth Grady Memorial Hospital11-01-2023 Miscellaneous Notes* Telephone Encounter - Donna [...] she needs prior authorization for brand name Wray Thyroid. She says she cannot take generic form. PRIOR AUTHORIZATION Medication for Prior Authorization: Wray Thyroid (Patient says she cannot use generic) Other formulary meds available : NO Insurance Company: [facility] Dual Complete Insurance Company phone number: Patient insurance ID number: [id number] Latosha Osei RN documented in this encounterOhiohealth Grady Memorial Hospital11-01-2023 History of Present illness Narrative* Funmi [...] Care Gap or Scheduling/Wellness visits Payer: Payor: [facility] MEDICARE / Plan: [facility] [facility] DUAL COMPLETE HMO POS SNP / Product Type: Medicare / Care Gap Reviewed:: Breast Cancer screening Reminder: Reminder note to check Health Maintenance for items below Health Maintenance items due: Mammogram Screening due on 11/16/2014 RSV Vaccine(1 - 1-dose 60+ series) Never done Colorectal Cancer Screening due on 09/09/2023 Navigation Signature: Funmi BASSETT July 29, 2023 11:35 AM documented in this encounterOhiohealth Grady Memorial Hospital10-31-2023 Miscellaneous Notes* Telephone Encounter - Sahara [...] 07/28/2023 1:[address] Stapleton from [facility] calling to give message to pt's [...] advise patient. Thank you. documented in this encounterOhiohealth Grady Memorial Hospital10-27-2023 Miscellaneous Notes* Telephone Encounter - Yesi [...] - 07/22/2023 9:22 AM EDT Patient calling [facility] pharmacy told her the Ozempic 2 mg is on manufacture back order and not know when it will be available. Patient said they do have the 1 mg still available. Patient is asking if she should stay on the Ozempic 1 mg? And she would need new rx to be sent to [facility] pharmacy. Then when do you want her to do the HGBA1C lab work if she stays on the 1 mg? Pending rx if wanted needs completed. Please advise documented in this encounterOhiohealth Grady Memorial Hospital10-18-2023 History of Present illness Narrative* Kathryn Rivero APRN.CNP - 07/15/2023 10:34 AM EDT Chief Complaint Patient presents with: Hospital F/U: Virus, pt recently had a fall due to dizziness, reports in scanned docs. HPI Deonte Blanco is a 67 year old female who presents here today for Above Complaints. Today: 07/01 was seen at [facility], passed out-doesn't remember this happening [...] MG/3 ML) SUBCUTANEOUS PEN INJECTOR Kathryn Rivero APRN.DIRECTOR STATISTICAL PROGRAMMING documented in this encounterOhiohealth Grady Memorial Hospital10-06-2023 Miscellaneous Notes* Telephone Encounter - Josie Starks RN - 07/03/2023 1:03 PM EDT Patient seen at [facility] ER on 07/01/2023 and is [...] she needs evaluated. Thank you, Jacqueline Candelario APRN.DIRECTOR STATISTICAL PROGRAMMING * Telephone Encounter - Kerry Nevarez LPN [...] then. Josie Starks RN documented in this encounterOhiohealth Grady Memorial Hospital09-29-2023 History of Present illness Narrative* Jacqueline [...] diarrhea yesterday. Recent travel last week to [place]. Reports no appetite and feels dehydrated. Concerns [...] today. Stay hydrated, encouraged body armor lite. Linn diet. Discussed and educated patient on reason [...] agreeable to treatment plan. Jacqueline Corbin APRN.CNP [address] [place] [address] documented in this encounterOhiohealth Grady Memorial Hospital09-22-2023 Instructions* Patient Instructions* Kathryn Rivero APRN.CNP - 06/19/2023 11:13 AM EDT Cut back your Wray Thyroid to 1 tablet daily. Recheck your thyroid levels again in 3 months. Check your A1C in 3 months. Continue with your same diabetic medications and diet, exercise. I'll get back with you pm the Vital Proteins powder. documented in this encounterOhiohealth Grady [facility] Hospital09-22-2023 History of Present illness Narrative* Kathryn [...] Patient agreeable to treatment plan. Jacqueline Corbin APRN.DIRECTOR STATISTICAL PROGRAMMING Today: A1C from has improved from 7.8 [...] E53.8 - VITAMIN B12 BLOOD Kathryn Rivero APRN.DIRECTOR STATISTICAL PROGRAMMING documented in this encounterOhiohealth Grady [facility] Hospital08-21-2023 Miscellaneous Notes* Telephone Encounter - Annmarie [...] 04-30-23 Next ov: 06-19-23 documented in this encounterOhiohealth Grady Memorial Hospital08-07-2023 Miscellaneous Notes* Telephone Encounter - Sahara Mejia LPN - 05/04/2023 5:11 PM EDT Pt. informed. * Telephone Encounter - Jacqueline Candelario APRN.DEREK - 05/04/2023 4:10 PM EDT Can we see if another pharmacy has ozempic in stock first or have pt call around to see. Thank you, Jacqueline Candelario APRN.DIRECTOR STATISTICAL PROGRAMMING * Telephone Encounter - Fernanda Ulloa LPN - 05/04/2023 9:11 AM EDT Pt called and she has 1 injection left for her Ozempic. Pharmacy instructed pt to call her pcp. Medication is now on back order. Please advise pt. Okay to leave a message. Fernanda Ulloa LPN documented in this encounterOhiohealth Grady Memorial Hospital08-03-2023 History of Present illness Narrative* Jacqueline [...] Patient agreeable to treatment plan. Jacqueline Corbin APRN.DIRECTOR STATISTICAL PROGRAMMING [address] [place] [address] documented in this encounterOhiohealth Grady Memorial Hospital06-28-2023 Miscellaneous Notes* Telephone Encounter - Liz [...] PA through medicaidto see if they will shrimp picker total cost so she does not have to continue out of pocket. PA to paul submitted through covermeds Shah: [id number] Donna Kimble Ma * Telephone Encounter - Donna Kimble Ma - 03/24/2023 1:22 PM EDT Electronic PA submitted Donna Kimble Ma * Telephone Encounter - Suzanna Coffey RN - 03/24/2023 12:03 PM EDT Prior Authorization Documentation Prior authorization requested for the following medication: Medication: Wray thyroid Provider: Charan Insurance Company Name: [employer] Phone number: [phone] Patient ID number: [id number] [facility]: [facility] documented in this encounterOhiohealth Grady Memorial Hospital06-21-2023 History of Present illness Narrative* Preet [...] with the plan. Preet Farrar DO [address] [place] [address] documented in this encounterOhiohealth Grady Memorial Hospital06-06-2023 Miscellaneous Notes* Telephone Encounter - Kesha Looneyllow COMPUTER TECHNOLOGY INSTRUCTOR - 03/03/2023 2:20 PM EDT Last OV: [...] patient. Kesha Evans LPN documented in this encounterOhiohealth Grady Memorial Hospital05-08-2023 Miscellaneous Notes* Telephone Encounter - Latosha [...] you. Latosha Osei RN documented in this encounterOhiohealth Grady Memorial Hospital03-29-2023 Miscellaneous Notes* Telephone Encounter - Annmarie [...] would like it called in to [facility] in [place]. Please call and let Pt know when [...] reports this morning at 710 am it [id number] and at noon it was 225. Last [...] Please call and advise. documented in this encounterOhiohealth Grady Memorial Hospital03-20-2023 Miscellaneous Notes* Telephone Encounter - Annmarie Canada RN - 12/15/2022 11:23 AM EDT Pt called in and wanted to update provider that she will be starting Ozempic today. She states she will call back in 30 days to let you know how it is going and if she needs to have the medication increased. documented in this encounterOhiohealth Grady Memorial Hospital03-15-2023 History of Present illness Narrative* Preet [...] Recently has quit after recent stroke Preet Fararr DO To ER if develops chest pain, shortness of breath, or severe worsening of symptoms. Discussed risks, benefits, alternatives, and potential side effects of medications. Patient expressed understanding and agreed with the plan. Preet Farrar DO [address] [place] [address] documented in this encounterOhiohealth Grady Memorial Hospital02-23-2023 Discharge summary Author Douglas Abdul [facility] November 20, 2022 10:36am Note Date/Time November 20, 2022 10:36am [facility] Physical Therapy [facility] [address] [place] [address] / REHABILITATION SERVICES DISCHARGE SUMMARY MR#: [id number] Acct: [id number] Name: DEONTE BLANCO Rep #: [id number] : 1955 67 From: Douglas ellis Referring Dr.: Dr. Preet Farrar DO Status: REG RCR Insurance: [facility] MCRDUAL COMP O [facility] [employer] It has been my pleasure [...] please feel free to call me at [phone]. Thank you for the referral of thispatient. Sincerely, Douglas Abdul Balance/Gait/Functional tests - Balance/Special Test Scores Lower Extremity Functional Score: 77 <Electronically signed by Douglas Abdul > 11/20/22 1036 CC: Dr. Preet Farrar DO; Dr. Carmen Dallas MD ~ NRN Signed [facility] Work Phone: 1(362) 391-886502-08-2023 History of Present illness Narrative* Jacqueline Candelario APRN.DIRECTOR STATISTICAL PROGRAMMING - 11/05/2022 11:00 AM EST Chief Complaint Patient presents with: hospital f/up HPI Deonte Blanco is a 67 year old female who presents here today for Above Complaints. Deonte is an established patient of Dr. Charan DO. Deonte is a new patient to me today. Concerns today... ER/hospital follow-up --- [facility] ER visit on 11/02/22 d/t [...] to treatment plan. Jacqueline Corbin APRN.DEREK [address] [place] [address] documented in this encounterOhiohealth Grady Memorial Hospital02-07-[address] Dallas [facility] November 04, 2022 10:19am Note Date/Time November 04, 2022 1 0:19am [facility] Medical Records Department [address] [place] [address] Instructions for Home/Discharge Instructions 11/04/22 1018 MR#: [id number] Acct: [id number] Name: DEONTE BLANCO Rep #:[id number] : 1955 67 From: Carmen Dallas MD [...] Hermes Block Instructions Patient Instructions: Booklet - [facility] Stroke ED - Living After [...] MOUTH AT BEDTIME Referrals / Follow Up: Hermse Block MD [Med Staff - Active Staff] [...] MD; Dr. Preet Farrar DO ~ Signed [facility] Work Phone: 1(556) 269-435802-06-[address] Dallas [facility] November 03, 2022 3:50pm Note Date/Time November 03, 2022 3 :49pm [facility] Medical Records Department [address] [place] [address] Progress Note - Hospitalist 11/03/22 1540 MR#: [id number] Acct: [id number] Name: DEONTE BLANCO Rep #:[id number] : 1955 67 From: Carmen Dallas MD PCP: Dr. Preet Farrar DO Status:AD M CM Location: [place] [address] Subjective Subjective Patient seen and examined. She [...] (Auto) 70.6 H, Lymph % (Auto) 20.1, [place] % (Auto) 6.7, Eos % (Auto) 1.7, [...] prophylaxis: lovenox Charges/Coding Visit Charges Inpatient E&M: 20144 Subs Hosp L2 Reason for Visit Reason for Visit: Diagnoses Cerebral infarction, unspecified (11/02/22) 11/03/22 1550 <Electronically signed by Carmen Dallas MD> Cosigner Signature (if applicable): CC: ~ Signed [facility] Work Phone: 1(626) 222-203802-06-[address] Dallas [facility] November 03, 2022 10:38am Note Date/Time November 03, 2022 1 0:39am [facility] Medical Records Department [address] [place] [address] Telemedicine Confirmation Receipt 11/03/22 MR#: [id number] Acct: [id number] Name: DEONTE BLANCO Rep #:[id number] : 1955 67 From: Carmen Dallas MD PCP: Dr. Preet Farrar, DO Status:AD M CM [facility] Tele[facility] has confirmed receipt of a request for visit. This document confirms receipt of the order initiating the consult. To find the results of the consultation, please view the patient's reports for the scanned Telemed Consult. [facility] Work Phone: 1(526) 931-859102-06-[address] Chanel [facility] November 02, 2022 10:10pm Note Date/Time November 02, 2022 3 :18pm [facility] Medical Records Department [address] [place] [address] Emergency Department Summary 11/02/22 MR#: [id number] Acct: [id number] Name: DEONTE BLANCO Rep #:[id number] : 1955 67 From: Mick Chanel MD PCP: Dr. Preet Farrar DO Status:AD M CM Location: [place] [address] HPI History of Present Illness Chief Complaint: [...] was done by a back surgeon in [place]. [facility] Medical History Debility Diabetes mellitus Hypertension Hypothyroidism [...] (Auto) 70.6 H Lymph % (Auto) 20.1 [place] % (Auto) 6.7 Eos % (Auto) 1.7 [...] acute ischemic infarction. case discussed with Barone. ColbertB. : The above Results were Read Back [...] frontal lobe Disposition Disposition: Acute Care Hospital [facility] Discharge Date/Time: 11/02/22 17:12 What to do if you have Problems For any increased pain, shortness of breath, bleeding, nausea or vomiting, chestpain, or any unexpected problems, contact your Primary Care Provider. Call [facility] ([phone]) or report to the closest Emergency Room. Call 911 if necessary. 11/02/222209 <Electronically signed by Mick Chanel MD> Cosigner Signature (if applicable): CC: Dr. Preet Farrar, DO ~ Signed [facility] Work Phone: 1(245) 890-598102-05-2023 History and physical note Author Dr. Mirza [facility] November 02, 2022 5:39pm Note Date/Time November 02, 2022 5 :39pm [facility] Medical Records Department [address] [place] [address] H&P Exam - Hospitalist 11/02/22 1733 MR#: [id number] Acct: [id number] Name: DEONTE BLANCO Rep #:[id number] : 1955 67 From: Hermes Mirza DO PCP: Dr. Preet Farrar, DO Status:CANDIDO PABON Location: [place] [id number]- [id number] HPI - General General Date of [...] Patient has never had a stroke before [facility] Medical History Debility Diabetes mellitus Hypertension Hypothyroidism [...] in the right upper extremity. Finger-nose and wjzu-ry-nsck grossly intact. Sensation grossly intact. Psych/Mental Status: [...] (Auto) 70.6 H, Lymph % (Auto) 20.1, [place] % (Auto) 6.7, Eos % (Auto) 1.7, [...] 16:29 EST Reading Location ID and State: [facility] / [place] , Service support , Assessment & Plan [...] observation status. Charges/Coding Visit Charges Inpatient E&M: 16872 Init Hosp L3 11/02/22 0256 <Electronically signed by Hermes Mirza DO> Cosigner Signature (if applicable): CC: Dr. Hermes Mirza DO; Dr. Aubrey Lundberg MD; Dr. Preet Farrar DO~ Signed [facility] Work Phone: 1(121) 201-217302-05-2023 Miscellaneous Notes* Telephone Encounter - Janis Subramanian RN - 11/02/2022 1:46 PM EST Reason for Call: Left foot drop, cool Outcome: Go to ED now. Patient acknowledged understanding and stated she would have daughter take her to ED. Reason for Disposition Diabetes mellitus Foot is cool or blue in comparison to other side Protocols used: Foot Ppnm-XYIRW-MO, Diabetes - Foot Problems and Orxlqzqil-MFQAS-HZ Patient states she is Type II diabetic and had back surgery in 2020. documented in this encounterOhiohealth Grady Memorial Hospital01-11-2023 Miscellaneous Notes* Telephone Encounter - Gnii Martinez LPN - 10/08/2022 4:52 PM EST Keira--09/10/22 Nov--12/10/22 Last refill--b-12 05/07/22 90 with 3 refills Wray thyroid 05/28/22 90 with 1 refills Last [...] advise. Susan Goddard Pss documented in this encounterOhiohealth Grady Memorial Hospital12-08-2022 Miscellaneous Notes* Telephone Encounter - Sofia [...] advise and call patient. documented in this encounterOhiohealth Grady Memorial Hospital11-30-2022 Miscellaneous Notes* Telephone Encounter - Chelo [...] and advise. Chelo Bassett documented in this encounterOhiohealth Grady Memorial Hospital08-31-2022 Miscellaneous Notes* Telephone Encounter - Fernanda Tash [...] you. Fernanda Ulloa LPN documented in this encounterOhiohealth Grady Memorial Hospital08-09-2022 Miscellaneous Notes* Telephone Encounter - Donna Kimble Ma - 05/06/2022 11:59 AM EDT Patient last visit with PCP 02/19/22 Follow up appointment scheduled none Donna Kimble Ma documented in this encounterOhiohealth Grady Memorial Hospital07-11-2022 Miscellaneous Notes* Telephone Encounter - Annmarie Canada RN - 04/07/2022 3:13 PM EDT Zoey from [facility], and Pts POA called and asked to have lab results from 04/04/22 faced over. Faxed to # [phone]. documented in this encounterOhiohealth Grady Memorial Hospital07-06-2022 Miscellaneous Notes* Telephone Encounter - Sahara [...] capsule by mouth two times a week. TRACEY: No KEIRA-02/19/22 Labs-02/19/22 NOV-none med filled 05/01/21 RX INSTRUCTIONS: Patient aware RX will be sent to pharmacy. No need to notify patient. Sahara Thayer Pss documented in this encounterOhiohealth Grady Memorial Hospital06-03-2022 History of Present illness Narrative* RT [...] 28, 2022 10:22 AM documented in this encounterOhiohealth Grady Memorial Hospital06-02-2022 Miscellaneous Notes* Telephone Encounter - Funmi [...] to test, and take hermeds afterwards. Asking Generator Operator Straight Bevel Gear to please advise patient if this would [...] office to answer her specific questions. PH: [phone]. Thank you. documented in this encounterOhiohealth Grady Memorial Hospital05-27-2022 Miscellaneous Notes* Telephone Encounter - Gini [...] samples. Preet Farrar DO documented in this encounterOhiohealth Grady Memorial Hospital05-26-2022 Miscellaneous Notes* Telephone Encounter - Chelo [...] if agreeable. Thank you. documented in this encounterOhiohealth Grady Memorial Hospital05-25-2022 History of Present illness Narrative* Preet Farrar, [...] agreed with the plan. Preet Farrar DO [address] [place] [address] documented in this encounterOhiohealth Grady Memorial Hospital05-18-2022 Miscellaneous Notes* Telephone Encounter - Yesi [...] Discussed recent order sent last month to [facility] for new BP cuff and patient states she did not know an order was sent for this and she will contact [facility] today and try to shrimp picker new BP monitor. She wanted to update Dr. Farrar of her BP results now instead of waiting until 02/19 appt due to being concerned. She denies any chest pain, shortness of breath or other symptoms. Please advise. Thank you. documented in this encounterOhiohealth Grady Memorial Hospital05-16-2022 History of Present illness Narrative* RT [...] 10, 2022 10:01 AM documented in this encounterOhiohealth Grady Memorial Hospital05-06-2022 Instructions* Patient Instructions* Kathryn Rivero APRN.DIRECTOR STATISTICAL PROGRAMMING - 01/31/2022 11:45 AM EDT Record your BP and heart rate once daily until your appointment with Dr. Farrar. If your BP is consistently over 160/100, please let us know before then. You can discuss your thyroid medication with her at that time as well. documented in this encounterOhiohealth Grady Memorial Hospital05-06-2022 History of Present illness Narrative* Kathryn [...] E03.9 Insurance is no longer covering her Wray Thyroid, as she is over 65 years old. They would like her to take JUSTICE COURT JUDGE Thyroid, but patient is unsure that she [...] in counseling and education. documented in this encounterOhiohealth Grady Memorial Hospital05-05-2022 Instructions* Patient Instructions* Steve Rodriguez - 01/30/2022 1:55 PM EDT Continue with boot. Repeat xrays in 2 weeks and then again in one month F/u in 1 month If you experience any issues, contact the office immediately documented in this encounterOhiohealth Grady Memorial Hospital05-05-2022 History of Present illness Narrative* Steve [...] myself: Nondisplaced fracture of left fibula ASSESSMENT: (Z52.960M) Closed fracture of distal end of left fibula, unspecified fracture morphology, initial encounter (primary encounter diagnosis) PLAN: 1. History and physical examination performed. 2. XR reviewed with patient and interpreted today 3. Discussed fracture of left fibula. This is nondisplaced. Continue with boot. 4. Will repeat xrays in 2 weeks and then again in 4 weeks Steve Rodriguez DPM Podiatry [address] [facility] [address] Dept: [phone] Dept * Melissa Valdivia RN - 01/30/2022 1:40 PM EDT AMB ROOMING INTAKE FLOWSHEET DATA Risk Screening Do you have concerns about personal safety or safety in the home?: No Patient presents with: Left Foot - New Patient, Fracture Patient is here for L foot fracture. Occurred a week ago. Has been NWB in boot. documented in this encounterOhiohealth Grady Memorial Hospital04-28-2022 History of Present illness Narrative* Nataly Ryan APRN.DIRECTOR STATISTICAL PROGRAMMING - 01/23/2022 4:59 PM EDT Images from the original note were not included. Subjective Patient came in with complaints of left ankle pain. Patient said she twisted her ankle in [place] rock driveway. Said it does hurt to walk on it. Did notice some swelling. No loss of feeling or sensation. The history is provided by the patient. No neurophysiological technician was used. Review of Systems Constitutional: Negative. [...] aspect of the lateral malleolus. Calcaneal spurring. Sales Special Agent: AUGUSTIN Transcribe Date/Time: Jan 23 2022 5:55P Dictated by : RODRIGO GONSALVES MD Patient placed in a walking boot and crutches were given. Try not to put weight on ankle as much aspossible. Orthopedic appointment patient instructed to take tylenol and ice and elevate until follow up with orthopedic. Nataly Ryan APRN.DEREK documented in this encounterOhiohealth Grady Memorial Hospital04-20-2022 Miscellaneous Notes* Telephone Encounter - Jacqueline Corbin APRN.CNP - 01/15/2022 2:03 PM EDT Noted. Thank you. Jacqueline Corbin APRN.DEREK * Telephone Encounter - Liz Richards LPN - 01/15/2022 1:47 PM EDT called pt and all reviewed. She is aware that his is not covered at this time. Although was not at the time she picked/got her insurance. She is paying out of pocket with a good rx card. She may contact her insurance company or the staff air defense officer of armour thyroid to see if they [...] To: Jacqueline Corbin From: [facility] Phone: Fax: [phone] Reference #: [id number] RE: Prior Authorization Request Patient Name: Deonte Blanco Patient : 1955 Status of Request: Deny Medication Name: Wray Thyro Tab 120mg GPI/NDC: [id number] Decision Notes: This medication is a plan exclusion and is not a covered benefit on this patient's plan. * Telephone Encounter - Liz Richards LPN - 01/14/2022 12:01 PM EDT Electronic PA requested. * Telephone Encounter - Annmarie Canada RN - 01/14/2022 11:41 AM EDT Prior Authorization Documentation Prior authorization requested for the following medication: Medication: Wray Thyroid Provider: Dr Preet Farrar Insurance Company Name: [facility] [employer] Insurance Company Phone number: Patient ID number: [id number] Pharmacy Name: [facility] Telephone number: [phone] documented in this encounterOhiohealth Grady Memorial Hospital04-02-2021 NoteHospital Medicine Discharge Summary Deonte Blanco : [...] Finally were able [facility]. Exam on discharge: BP [...] by the following consultants while admitted to [facility]: Consults: IP CONSULT TO ORTHOPEDIC SURGERY IP CONSULT TO PRESSING DEPARTMENT SUPERVISOR IP CONSULT TO PRESSING DEPARTMENT SUPERVISOR Significant Diagnostic Studies: Refer to chart Please refer to chart if no studies are shown here Xr Lumbar Spine (2-3 Views) Result Date: 12/21/2020 Patient Name: DEONTE BLANCO Diagnostic Radiology ACCESSION EXAM DATE/TIME PROCEDURE ORDERING PROVIDER [id number] 12/21/2020 06:06 EDT CR Spine Lumbosacral 2 MD ROCK ZACHARY or 3 Views CPT code 38465 Reason For Exam (CR Spine Lumbosacral 2 or 3 Views) pre-surgery films Report Examination: Lumbar spine 3 views Indication: pre-surgery films Findings: The vertebral bodies are in gross anatomic alignment. No acute fracture is demonstrated. Zvpd-yx-fvjzxkyo levocurvature is noted. There are at least moderate degenerative facet changes of the lower lumbar spine. There is at least moderate degenerative disc disease at T12/L1 and L1/L2. Aitz-ig-zssjqqxs calcification of the abdominal aorta is noted. [...] Radiology ACCESSION EXAM DATE/TIME PROCEDURE ORDERING PROVIDER [id number] 12/21/2020 06:06 EDT CR Chest 1 View Frontal MD ROCK ZACHARY CPT code 70893 Reason For Exam (CR Chest 1 View [...] Discharge Medications: Deonte Blanco Home Medication Instructions [place]:[id number] Printed on:12/28/20 1201 Medication Information Cholecalciferol (VITAMIN D3) 1.25 MG (77780 UT) CAPS Take 50,000 capsules by mouth Twice a Week Thursday and Thursday cyclobenzaprine (FLEXERIL) 10 MG tablet Take 1 tablet by mouth 3 times daily as needed for Muscle spasms gabapentin (NEURONTIN) 300 MG capsule Take 1 capsule by mouth 3 times da (more content not included)...[facility]03-27-2021 NoteProcedure Note Name: Deonte Blanco Date of : 1955 Age: 65 y.o. Primary Care Physician: No primary care provider on file. Admission Date/Time: 12/21/2020 2:28 AM Date of Procedure: 12/21/2020 Attending Surgeon: Setve Martinez M.D. Lime Mixer Tender: Abisai Wolff PA-C, Treva Henderson MD PGY-2 The first-housekeeper and laundry assistant was critical to all steps of [...] F who presented as a transfer from [facility] with low back pain and bilateral LE [...] was prepped and drape (more content not included)...[facility]01-[facility] History of Past illness Narrative* Problem Noted Date Resolved Date Controlled type 2 diabetes m nedra without complication, without long-term current use of insulin 10/12/2018 12/08/2022 Abdominal pain, right upper quadrant 02/16/2007 12/08/2022 Diabetes mellitus type 2, controlled, without co mplications 07/13/2006 12/08/2022 Overview: 2005 documented as of this encounter (statuses as of 12/10/2022) [facility]01-[facility] History of Past illness Narrative* Problem Noted Date Resolved Date Controlled type 2 diabetes m issacitus without complication, without long-term current use of insulin 10/12/2018 12/08/2022 Abdominal pain, right upper quadrant 02/16/2007 12/08/2022 Diabetes mellitus type 2, controlled, without co mplications 07/13/2006 12/08/2022 Overview: 2005 documented as of this encounter (statuses as of 12/15/2022) [facility] of Past illness Narrative* Problem Noted Date Resolved Date Controlled type 2 diabetes m ellitus without complication, without long-term current use of insulin 10/12/2018 12/08/2022 Abdominal pain, right upper quadrant 02/16/2007 12/08/2022 Diabetes mellitus type 2, controlled, without co mplications 07/13/2006 12/08/2022 Overview: 2005 documented as of this encounter (statuses as of 12/24/2022) [facility] of Past illness Narrative* Problem Noted Date Resolved Date Controlled type 2 diabetes m ellitus without complication, without long-term current use of insulin 10/12/2018 12/08/2022 Abdominal pain, right upper quadrant 02/16/2007 12/08/2022 Diabetes mellitus type 2, controlled, without co mplications 07/13/2006 12/08/2022 Overview: 2005 documented as of this encounter (statuses as of 02/03/2023) [facility] of Past illness Narrative* Problem Noted Date Resolved Date Controlled type 2 diabetes m ellitus without complication, without long-term current use of insulin 10/12/2018 12/08/2022 Abdominal pain, right upper quadrant 02/16/2007 12/08/2022 Diabetes mellitus type 2, controlled, without co mplications 07/13/2006 12/08/2022 Overview: 2005 documented as of this encounter (statuses as of 03/04/2023) [facility] of Past illness Narrative* Problem Noted Date Resolved Date Controlled type 2 diabetes m ellitus without complication, without long-term current use of insulin 10/12/2018 12/08/2022 Abdominal pain, right upper quadrant 02/16/2007 12/08/2022 Diabetes mellitus type 2, controlled, without co mplications 07/13/2006 12/08/2022 Overview: 2005 documented as of this encounter (statuses as of 03/18/2023) [facility] History of Past illness Narrative* Problem Noted Date Resolved Date Controlled type 2 diabetes m ellitus without complication, without long-term current use of insulin 10/12/2018 12/08/2022 Abdominal pain, right upper quadrant 02/16/2007 12/08/2022 Diabetes mellitus type 2, controlled, without co mplications 07/13/2006 12/08/2022 Overview: 2005 documented as of this encounter (statuses as of 03/25/2023) [facility] History of Past illness Narrative* Problem Noted Date Diagnosed Date Resolved Date Controlled type 2 diabetes m ellitus without complication, without long-term current use of insulin 10/12/2018 12/08/2022 Abdominal pain, right upper quadrant 02/16/2007 12/08/2022 Diabetes mellitus type 2, co ntrolled, without complications 07/13/2006 12/08/2022 Overview: 2005 documented as of this encounter (statuses as of 04/30/2023) [facility] History of Past illness Narrative* Problem Noted Date Diagnosed Date Resolved Date Controlled type 2 diabetes m ellitus without complication, without long-term current use of insulin 10/12/2018 12/08/2022 Abdominal pain, right upper quadrant 02/16/2007 12/08/2022 Diabetes mellitus type 2, co ntrolled, without complications 07/13/2006 12/08/2022 Overview: 2005 documented as of this encounter (statuses as of 05/05/2023) [facility] History of Past illness Narrative* Problem Noted Date Diagnosed Date Resolved Date Controlled type 2 diabetes m ellitus without complication, without long-term current use of insulin 10/12/2018 12/08/2022 Abdominal pain, right upper quadrant 02/16/2007 12/08/2022 Diabetes mellitus type 2, co ntrolled, without complications 07/13/2006 12/08/2022 Overview: 2005 documented as of this encounter (statuses as of 05/18/2023) [facility] History of Past illness Narrative* Problem Noted Date Diagnosed Date Resolved Date Controlled type 2 diabetes m ellitus without complication, without long-term current use of insulin 10/12/2018 12/08/2022 Abdominal pain, right upper quadrant 02/16/2007 12/08/2022 Diabetes mellitus type 2, co ntrolled, without complications 07/13/2006 12/08/2022 Overview: 2005 documented as of this encounter (statuses as of 06/20/2023) [facility] History of Past illness Narrative* Problem Noted Date Diagnosed Date Resolved Date Controlled type 2 diabetes m ellitus without complication, without long-term current use of insulin 10/12/2018 12/08/2022 Abdominal pain, right upper quadrant 02/16/2007 12/08/2022 Diabetes mellitus type 2, co ntrolled, without complications 07/13/2006 12/08/2022 Overview: 2005 documented as of this encounter (statuses as of 06/26/2023) [facility] History of Past illness Narrative* Problem Noted Date Diagnosed Date Resolved Date Controlled type 2 diabetes m ellitus without complication, without long-term current use of insulin 10/12/2018 12/08/2022 Abdominal pain, right upper quadrant 02/16/2007 12/08/2022 Diabetes mellitus type 2, co ntrolled, without complications 07/13/2006 12/08/2022 Overview: 2005 documented as of this encounter (statuses as of 07/04/2023) [facility] History of Past illness Narrative* Problem Noted Date Diagnosed Date Resolved Date Controlled type 2 diabetes m ellitus without complication, without long-term current use of insulin 10/12/2018 12/08/2022 Abdominal pain, right upper quadrant 02/16/2007 12/08/2022 Diabetes mellitus type 2, co ntrolled, without complications 07/13/2006 12/08/2022 Overview: 2005 documented as of this encounter (statuses as of 07/21/2023) [facility] History of Past illness Narrative* Problem Noted Date Diagnosed Date Resolved Date Controlled type 2 diabetes m ellitus without complication, without long-term current use of insulin 10/12/2018 12/08/2022 Abdominal pain, right upper quadrant 02/16/2007 12/08/2022 Diabetes mellitus type 2, co ntrolled, without complications 07/13/2006 12/08/2022 Overview: 2005 documented as of this encounter (statuses as of 07/24/2023) [facility] History of Past illness Narrative* Problem Noted Date Diagnosed Date Resolved Date Controlled type 2 diabetes m ellitus without complication, without long-term current use of insulin 10/12/2018 12/08/2022 Abdominal pain, right upper quadrant 02/16/2007 12/08/2022 Diabetes mellitus type 2, co ntrolled, without complications 07/13/2006 12/08/2022 Overview: 2005 documented as of this encounter (statuses as of 07/28/2023) [facility] History of Past illness Narrative* Problem Noted Date Diagnosed Date Resolved Date Controlled type 2 diabetes m ellitus without complication, without long-term current use of insulin 10/12/2018 12/08/2022 Abdominal pain, right upper quadrant 02/16/2007 12/08/2022 Diabetes mellitus type 2, co ntrolled, without complications 07/13/2006 12/08/2022 Overview: 2005 documented as of this encounter (statuses as of 07/29/2023) [facility] History of Past illness Narrative* Problem Noted Date Diagnosed Date Resolved Date Controlled type 2 diabetes m ellitus without complication, without long-term current use of insulin 10/12/2018 12/08/2022 Abdominal pain, right upper quadrant 02/16/2007 12/08/2022 Diabetes mellitus type 2, co ntrolled, without complications 07/13/2006 12/08/2022 Overview: 2005 documented as of this encounter (statuses as of 08/01/2023) [facility] History of Past illness Narrative* Problem Noted Date Diagnosed Date Resolved Date Controlled type 2 diabetes m ellitus without complication, without long-term current use of insulin 10/12/2018 12/08/2022 Abdominal pain, right upper quadrant 02/16/2007 12/08/2022 Diabetes mellitus type 2, co ntrolled, without complications 07/13/2006 12/08/2022 Overview: 2005 documented as of this encounter (statuses as of 08/10/2023) [facility] History of Past illness Narrative* Problem Noted Date Diagnosed Date Resolved Date Controlled type 2 diabetes m ellitus without complication, without long-term current use of insulin 10/12/2018 12/08/2022 Abdominal pain, right upper quadrant 02/16/2007 12/08/2022 Diabetes mellitus type 2, co ntrolled, without complications 07/13/2006 12/08/2022 Overview: 2005 documented as of this encounter (statuses as of 10/29/2023) [facility] History of Past illness Narrative* Problem Noted Date Diagnosed Date Resolved Date Controlled type 2 diabetes m ellitus without complication, without long-term current use of insulin 10/12/2018 12/08/2022 Abdominal pain, right upper quadrant 02/16/2007 12/08/2022 Diabetes mellitus type 2, co ntrolled, without complications 07/13/2006 12/08/2022 Overview: 2005 documented as of this encounter (statuses as of 11/13/2023) [facility] History of Past illness Narrative* Problem Noted Date Diagnosed Date Resolved Date Controlled type 2 diabetes m ellitus without complication, without long-term current use of insulin 10/12/2018 12/08/2022 Abdominal pain, right upper quadrant 02/16/2007 12/08/2022 Diabetes mellitus type 2, co ntrolled, without complications 07/13/2006 12/08/2022 Overview: 2005 documented as of this encounter (statuses as of 11/13/2023) [facility] History of Past illness Narrative* Problem Noted Date Diagnosed Date Resolved Date Controlled type 2 diabetes m ellitus without complication, without long-term current use of insulin 10/12/2018 12/08/2022 Abdominal pain, right upper quadrant 02/16/2007 12/08/2022 Diabetes mellitus type 2, co ntrolled, without complications 07/13/2006 12/08/2022 Overview: 2005 documented as of this encounter (statuses as of 11/18/2023) [facility] History of Past illness Narrative* Problem Noted Date Diagnosed Date Resolved Date Controlled type 2 diabetes m ellitus without complication, without long-term current use of insulin 10/12/2018 12/08/2022 Abdominal pain, right upper quadrant 02/16/2007 12/08/2022 Diabetes mellitus type 2, co ntrolled, without complications 07/13/2006 12/08/2022 Overview: 2005 documented as of this encounter (statuses as of 11/19/2023) [facility] History of Past illness Narrative* Problem Noted Date Diagnosed Date Resolved Date Controlled type 2 diabetes m ellitus without complication, without long-term current use of insulin 10/12/2018 12/08/2022 Abdominal pain, right upper quadrant 02/16/2007 12/08/2022 Diabetes mellitus type 2, co ntrolled, without complications 07/13/2006 12/08/2022 Overview: 2005 documented as of this encounter (statuses as of 11/19/2023) [facility] History of Past illness Narrative* Problem Noted Date Diagnosed Date Resolved Date Controlled type 2 diabetes m ellitus without complication, without long-term current use of insulin 10/12/2018 12/08/2022 Abdominal pain, right upper quadrant 02/16/2007 12/08/2022 Diabetes mellitus type 2, co ntrolled, without complications 07/13/2006 12/08/2022 Overview: 2005 documented as of this encounter (statuses as of 11/25/2023) [facility] History of Past illness Narrative* Problem Noted Date Diagnosed Date Resolved Date Controlled type 2 diabetes m ellitus without complication, without long-term current use of insulin 10/12/2018 12/08/2022 Abdominal pain, right upper quadrant 02/16/2007 12/08/2022 Diabetes mellitus type 2, co ntrolled, without complications 07/13/2006 12/08/2022 Overview: 2005 documented as of this encounter (statuses as of 12/09/2023) [facility] History of Past illness Narrative* Problem Noted Date Diagnosed Date Resolved Date Controlled type 2 diabetes m ellitus without complication, without long-term current use of insulin 10/12/2018 12/08/2022 Abdominal pain, right upper quadrant 02/16/2007 12/08/2022 Diabetes mellitus type 2, co ntrolled, without complications 07/13/2006 12/08/2022 Overview: 2005 documented as of this encounter (statuses as of 12/10/2023) [facility] History of Past illness Narrative* Problem Noted Date Diagnosed Date Resolved Date Controlled type 2 diabetes m ellitus without complication, without long-term current use of insulin 10/12/2018 12/08/2022 Abdominal pain, right upper quadrant 02/16/2007 12/08/2022 Diabetes mellitus type 2, co ntrolled, without complications 07/13/2006 12/08/2022 Overview: 2005 documented as of this encounter (statuses as of 01/02/2024) [facility] History of Past illness Narrative* Problem Noted Date Diagnosed Date Resolved Date Controlled type 2 diabetes m ellitus without complication, without long-term current use of insulin 10/12/2018 12/08/2022 Abdominal pain, right upper quadrant 02/16/2007 12/08/2022 Diabetes mellitus type 2, co ntrolled, without complications 07/13/2006 12/08/2022 Overview: 2005 documented as of this encounter (statuses as of 01/02/2024) [facility] History of Past illness Narrative* Problem Noted Date Diagnosed Date Resolved Date Controlled type 2 diabetes m ellitus without complication, without long-term current use of insulin 10/12/2018 12/08/2022 Abdominal pain, right upper quadrant 02/16/2007 12/08/2022 Diabetes mellitus type 2, co ntrolled, without complications 07/13/2006 12/08/2022 Overview: 2005 documented as of this encounter (statuses as of 01/03/2024) [facility] History of Past illness Narrative* Problem Noted Date Diagnosed Date Resolved Date Controlled type 2 diabetes m ellitus without complication, without long-term current use of insulin 10/12/2018 12/08/2022 Abdominal pain, right upper quadrant 02/16/2007 12/08/2022 Diabetes mellitus type 2, co ntrolled, without complications 07/13/2006 12/08/2022 Overview: 2005 documented as of this encounter (statuses as of 01/06/2024) [facility] History of Past illness Narrative* Problem Noted Date Diagnosed Date Resolved Date Controlled type 2 diabetes m ellitus without complication, without long-term current use of insulin 10/12/2018 12/08/2022 Abdominal pain, right upper quadrant 02/16/2007 12/08/2022 Diabetes mellitus type 2, co ntrolled, without complications 07/13/2006 12/08/2022 Overview: 2005 documented as of this encounter (statuses as of 01/06/2024) [facility] History of Past illness Narrative* Problem Noted Date Diagnosed Date Resolved Date Controlled type 2 diabetes m ellitus without complication, without long-term current use of insulin 10/12/2018 12/08/2022 Abdominal pain, right upper quadrant 02/16/2007 12/08/2022 Diabetes mellitus type 2, co ntrolled, without complications 07/13/2006 12/08/2022 Overview: 2005 documented as of this encounter (statuses as of 01/07/2024) [facility] History of Past illness Narrative* Problem Noted Date Diagnosed Date Resolved Date Controlled type 2 diabetes m ellitus without complication, without long-term current use of insulin 10/12/2018 12/08/2022 Abdominal pain, right upper quadrant 02/16/2007 12/08/2022 Diabetes mellitus type 2, co ntrolled, without complications 07/13/2006 12/08/2022 Overview: 2005 documented as of this encounter (statuses as of 01/14/2024) [facility] + Plan note No data available for this section [facility] Evaluation note* Diagnosis Acute left ankle pain- Primary documented in this encounter [facility] note* Diagnosis Closed fracture of distal end of left fibula, unspecified fracture morphology, initial encounter- Primary documented in this encounter [facility] note* Diagnosis Essential hypertension, benign- Primary Acquired hypothyroidism Unspecified hypothyroidism Controlled type 2 diabetes mellitus without complication, without long-term current use of insulin (HCC) [facility] Diagnosis Closed fracture of distal end of left fibula, unspecified fracture morphology, initial encounter documented in this encounter [facility] note* Diagnosis Uncontrolled hypertension- Primary Unspecified essential hypertension Palpitations Uncontrolled type 2 diabetes mellitus with hyperglycemia (HCC) Essential hypertension, benign Acquired hypothyroidism Unspecified hypothyroidism documented in this encounter [facility] note* Diagnosis Uncontrolled hypertension- Primary Unspecified essential hypertension [facility] Diagnosis Closed fracture of distal end of left fibula, unspecified fracture morphology, initial encounter documented in this encounter [facility] note* Diagnosis Encounter for screening mammogram for breast cancer documented in this encounter [facility] note* Diagnosis Vitamin D deficiency Unspecified vitamin D deficiency documented in this encounter [facility] noteNo assessment information availableWSCCI [facility] Work [facility]* Diagnosis Vitamin B12 deficiency Other B-complex deficiencies [facility]* Diagnosis Acquired hypothyroidism Unspecified hypothyroidism [facility]* Diagnosis Essential hypertension, benign [facility] Diagnosis Acquired hypothyroidism- Primary Unspecified hypothyroidism Vitamin D deficiency Unspecified vitamin D deficiency Uncontrolled type 2 diabetes mellitus with hyperglycemia (HCC) Dyslipidemia Other and unspecified hyperlipidemia Iron deficiency anemia, unspecified iron deficiency anemia type documented in this encounter [facility] note* Diagnosis Acquired hypothyroidism Unspecified hypothyroidism Vitamin B12 deficiency Other B-complex deficiencies documented in this encounter [facility] note* Diagnosis Onset Date Resolution Status Ischemic cerebrovascular accident (CVA) of frontal lob e [facility] Work Phone: Evaluation note* Diagnosis Ischemic stroke without residual deficits (HCC)- Primary Essential hypertension, benign Uncontrolled type 2 diabetes mellitus with hyperglycemia (HCC) Dyslipidemia Other and unspecified hyperlipidemia Encounter for smoking cessation counseling Counseling on substance use and abuse Controlled type 2 diabetes mellitus without complication, without long-term current use of insulin (HCC) [facility]* Diagnosis Uncontrolled type 2 diabetes mellitus with hyperglycemia (HCC)- Primary Ischemic stroke without residual deficits (HCC) Dyslipidemia Other and unspecified hyperlipidemia Acquired hypothyroidism Unspecified hypothyroidism Vitamin D deficiency Unspecified vitamin D deficiency Vitamin B12 deficiency Other B-complex deficiencies History of tobacco abuse Personal history of tobacco use, presenting hazards to health [facility] Diagnosis Vitamin B12 deficiency Other B-complex deficiencies [facility]* Diagnosis Acquired hypothyroidism Unspecified hypothyroidism Vitamin D deficiency Unspecified vitamin D deficiency [facility]* Diagnosis Uncontrolled type 2 diabetes mellitus with hyperglycemia (HCC)- Primary Acquired hypothyroidism Unspecified hypothyroidism Dyslipidemia Other and unspecified hyperlipidemia History of tobacco abuse Personal history of tobacco use, presenting hazards to health Essential hypertension, benign [facility]* Diagnosis Onset Date Resolution Status Polyneuropathy acute 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 Ischemic stroke resolved [facility] Work Phone: Evaluation note* Diagnosis Uncontrolled type 2 diabetes mellitus with hyperglycemia (HCC) [facility]* Diagnosis Uncontrolled type 2 diabetes mellitus with hyperglycemia (HCC) [facility]* Diagnosis Uncontrolled type 2 diabetes mellitus with hyperglycemia (HCC)- Primary Acquired hypothyroidism Unspecified hypothyroidism Vitamin B12 deficiency Other B-complex deficiencies [facility]* Diagnosis Nausea and vomiting, unspecified vomiting type- Primary Hyperglycemia Other abnormal glucose Controlled type 2 diabetes mellitus without complication, without long-term current use of insulin (HCC) [facility]* Diagnosis Uncontrolled type 2 diabetes mellitus with hyperglycemia (HCC)- Primary Acquired hypothyroidism Unspecified hypothyroidism Essential hypertension, benign Renal artery stenosis (HCC) Atherosclerosis of renal artery [facility]* Diagnosis Uncontrolled type 2 diabetes mellitus with hyperglycemia (HCC) [facility]* Diagnosis Hypokalemia- Primary Hypopotassemia [facility]* Diagnosis Onset Date Resolution Status Hypokalemia acute Hypokalemia acute Polyneuropathy acute 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 Ischemic stroke resolved [facility] Work Phone: evaluation note* Diagnosis Essential hypertension, benign- Primary [facility]* Diagnosis Essential hypertension, benign- Primary Acquired hypothyroidism Unspecified hypothyroidism Controlled type 2 diabetes mellitus without complication, with long-term current use of insulin (HCC) Uncontrolled type 2 diabetes mellitus with hyperglycemia (HCC) [facility] Diagnosis Essential hypertension, benign- Primary Situational anxiety Other anxiety states [facility] Diagnosis Ischemic stroke without residual deficits (HCC) [facility]* Diagnosis Uncontrolled type 2 diabetes mellitus [...] Other anxiety states [facility]* Diagnosis Vaginal itching- Primary Pruritus of genital organs Dysuria Glucosuria Glycosuria [facility]* Diagnosis BV (bacterial vaginosis)- Primary Vaginitis and vulvovaginitis, unspecified [facility]* Diagnosis Acquired hypothyroidism Unspecified hypothyroidism Uncontrolled type 2 diabetes mellitus with hyperglycemia (HCC) [facility]* Diagnosis Uncontrolled type 2 diabetes mellitus with hyperglycemia (HCC)- Primary Situational anxiety Other anxiety states [facility] Diagnosis Uncontrolled type 2 diabetes mellitus with hyperglycemia (HCC)- Primary Vaginal yeast infection Candidiasis of vulva and vagina Poor sleep [facility]* Diagnosis Vitamin D deficiency Unspecified vitamin D deficiency [facility]* Diagnosis Encounter for screening mammogram for breast cancer [facility] Diagnosis Gastroenteritis- Primary Other and unspecified noninfectious gastroenteritis and colitis Uncontrolled type 2 diabetes mellitus with hyperglycemia (HCC) Acquired hypothyroidism Unspecified hypothyroidism Obesity, Class I, BMI 30-34.9 Obesity, unspecified Acute dehydration Situational anxiety Other anxiety states [facility] Diagnosis Type 2 diabetes mellitus with other circulatory complication, with long-term current use of insulin (HCC)- Primary [facility]* Diagnosis Ischemic stroke without residual deficits (HCC) [facility]* Diagnosis Thickened endometrium- Primary Nonspecific (abnormal) findings on radiological and other examination of genitourinary organs LLQ pain Abdominal pain, left lower quadrant [facility] [facility] Diagnosis Uncontrolled type 2 diabetes mellitus with hyperglycemia (HCC)- Primary Acquired hypothyroidism Unspecified hypothyroidism Essential hypertension, benign Vitamin B12 deficiency Other B-complex deficiencies Hyperlipidemia, mixed Mixed hyperlipidemia Tobacco use disorder Vitamin D deficiency Unspecified vitamin D deficiency documented in this encounter [facility] note* Diagnosis Acute left ankle pain [facility]* Diagnosis Type 2 diabetes mellitus with other circulatory complication, with long-term current use of insulin (HCC)- Primary documented in this encounter [facility]* Diagnosis Acquired hypothyroidism Unspecified hypothyroidism Uncontrolled type 2 diabetes mellitus with hyperglycemia (HCC) documented in this encounter [facility] note* Diagnosis Uncontrolled type 2 diabetes mellitus with hyperglycemia (HCC) documented in this encounter [facility] note* Diagnosis Hyperlipidemia, mixed- Primary Mixed hyperlipidemia Hypothyroidism, unspecified type 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, without long-term current use of insulin (HCC) documented in this encounter [facility] note* Diagnosis Medicare annual wellness visit, subsequent- [...] vitamin D deficiency documented [facility] Diagnosis Acquired hypothyroidism Unspecified hypothyroidism [facility] Diagnosis Abnormal results of thyroid function studies- Primary Nonspecific abnormal results of thyroid function study documented [facility]* Diagnosis Ischemic stroke without residual deficits (HCC) documented [facility]* Diagnosis Uncontrolled type 2 diabetes mellitus with hyperglycemia (HCC)- Primary Hyperlipidemia, mixed Mixed hyperlipidemia Vitamin B12 deficiency Other B-complex deficiencies Vitamin D deficiency Unspecified vitamin D deficiency Essential hypertension, benign Acquired hypothyroidism Unspecified hypothyroidism Pre-op examination Preoperative examination, unspecified documented in this encounter [facility] note* Diagnosis Uncontrolled type 2 diabetes mellitus with hyperglycemia (HCC)- Primary documented [facility]* Diagnosis Encounter for screening mammogram for breast cancer [facility] Diagnosis Type 2 diabetes mellitus with other circulatory complication, with long-term current use of insulin (HCC)- Primary Abnormal weight gain [facility] Diagnosis Uncontrolled type 2 diabetes mellitus with hyperglycemia (HCC) Screening for depression documented [facility] Diagnosis Uncontrolled type 2 diabetes mellitus with hyperglycemia (HCC) documented [facility] Diagnosis Type 2 diabetes mellitus with [...] Essential hypertension, benign [facility] Diagnosis Acquired hypothyroidism Unspecified hypothyroidism documented [facility] Diagnosis Other elevated white blood cell (WBC) count- Primary [facility]* Diagnosis Acquired hypothyroidism- Primary Unspecified hypothyroidism Ischemic stroke without residual deficits (HCC) Uncontrolled type 2 diabetes mellitus with hyperglycemia (HCC) Hyperlipidemia, mixed Mixed hyperlipidemia documented [facility] Diagnosis Uncontrolled type 2 diabetes mellitus with hyperglycemia (HCC)- Primary Acquired hypothyroidism Unspecified hypothyroidism Hyperlipidemia, mixed Mixed hyperlipidemia Essential hypertension, benign Obesity, Class II, BMI 35-39.9 Obesity, unspecified documented [facility]* Diagnosis Onset Date Resolution Status Admit Date Postmenopausal bleeding acute S eptember 2024 12:58pm [facility] Work Phone: Hospital Discharge instructionsAdditional Instructions Follow-up with Dr. Abisai Farnsworth. Return if heavy bleeding.[facility] Work Phone: Progress note Author Anushka Isaac [facility] Note Date/Time June 21, 2025 1:32pm [facility] [address] [place] [address], [address] [place] [address] OFFICE VISIT Date of Service: 06/21/25 MR#: [id number] Acct: [id number] Name: DEONTE BLANCO Rep #: [id number] : 1955 Provider: Dr. Elvis Isaac MD Age/Sex: 69/F Location: [facility] Status: Signed Intake Vital Signs 05/25/25 21:39 06/21/25 13:02 Height 5 ft 5 ft Weight: 222 lb 184 lb 3 oz BMI 43.3 35.9 BP 164/104 H 149/74 H Respiration 18 Pulse 100 Temp 98.2 F Pulse Oximetry (%) 97 Intake Visit Reasons: ER follow up heavy bleeding Chief Complaint: ER FU Heavy Bleeding Window Tinter Required: No Is patient in pain?: No Allergies metformin Allergy (Severe, Verified 06/21/25 13:01) Hives prednisone Allergy (Intermediate, Verified 06/21/25 13:01) Itching aspirin Allergy (Verified 06/21/25 13:01) mouth swelling gluten Allergy (Verified 06/21/25 13:01) Abd cramps/diarrhea ibuprofen Allergy (Verified 06/21/25 13:01) mouth swelling Sulfa (Sulfonamide Antibiotics) Allergy (Verified 06/21/25 13:01) pt can't remember Medications ?Medication ?Instructions ?Recorded ?Confirmed ?Type ergocalciferol (vitamin D2) 1,250 50,000 unit PO MOFR SUPPLEMENT 12/18/20 06/21/25 History mcg (50,000 unit) capsule thyroid (pork) 120 mg tablet 120 tablet PO DAILY THYRO ID 12/18/20 06/21/25 History clopidogrel 75 mg tablet 75 mg PO DAILY BLOOD THINNER #30 11/04/22 06/21/25 Rx tabs carvedilol 6.25 mg tablet 6.25 mg PO BID 03/05/2405/30 History pantoprazole 40 mg tablet,delayed 40 mg PO DAILY #30 t abs 05/22/24 06/21/25 Rx release thyroid (pork) 30 mg tablet 30 mg PO MOWEFR 07/21/24 0 06/21/25 History (Wray Thyroid) insulin glargine 100 unit/mL (3 25 unit subcut DAILY 0 12/12/24 06/21/25 History mL) subcutaneous pen (Lantus Solostar U-100 Insulin) spironolactone 25 mg tablet 25 mg PO BID 12/12/2405/30 History elderberry fruit 200 mg capsule 2,000 mg PO DAILY 11/2606/21/25 History atorvastatin 40 mg tablet 40 mg PO QDAY #90 tabs 01/2606/21/25 Rx dulaglutide 1.5 mg/0.5 mL 1.5 mg subcut FR 04/15/25 History subcutaneous pen injector (Trulicity) Is last menstrual period known: No Post menopausal: Yes Patient : No : No PFSH Medical History Cardiology follow-up encounter History [...] Intractable back pain Surgical History History of total vaginal hysterectomy (TVH) History of esophagogastroduodenoscopy (EGD) Hx of colonoscopy History of hysteroscopy History of back surgery (~2019) Hx of umbilical hernia repair S/P tubal ligation S/P cholecystectomy S/P tonsillectomy and adenoidectomy History of lumbar fusion History of lumbar discectomy Family History Mother Heart disease Alzheimers disease Father Heart disease Hypertension CAD (coronary artery disease) Myocardial infarction Thyroid disorder Diabetes Sister Cancer Social History adopted: No household members: none number of children: 3 sexually active: Yes Smoking Status: Former smoker alcohol intake: never substance use type: marijuana and other details: Medical cannabis, usually daily. seatbelt use: always do you feel safe at home: Yes HPI ER follow up heavy bleeding Details: The patient is a 69-year-old female presenting with concerns of vaginal bleedingand tearing. She experienced a significant bleeding episode requiring an emergency room visit, attributed to vaginal tearing during intercourse. The bleeding has resolved, with only minimal spotting noted shortly after the incident. The patient has been cautious about resuming physical activities to allow for proper healing and reports no abdominal pain, cramping, nausea, or fever since the incident. She is postmenopausal and concerned about maintaining vaginal health, advised touse a non-hormonal vaginal moisturizer and lubricant to prevent dryness and potential tearing during intercourse. Attestation: Documentation on this patient encounter was supported using ambient scribe technology/ voice AI technology. The patient consented to recording for the purpose of documenting the encounter. Provider reviewed content of the generatednote prior to signature. History 3 Elective abortions Hx Para 3 Spontaneous abortions Hx # Term Pregnancies Ectopic pregnancies Hx # Pregnancies Multiple births # of living children 3 Past Pregnancies Del. Date Name GA/Weeks Outcome Route Bth Weight Gen Labor Lgth Anesthesia Del Locatn Provider FOB Unknown 1985 Alicia Unknown 1989 Zoey Unknown 1996 Jeffrey CLARKE Const Constitutional: Reports system reviewed and no additional complaints, except as documented GI GI: Denies abdominal pain, cramping, nausea or vomiting : Denies pelvic pain, urinary frequency, urinary incontinence, urinary urgency, vaginal discharge, vaginal dryness or vaginal odor Exam Const General: cooperative, healthy appearing, comfortable and no acute distress External Female Exam: normal external appearance and normal appearance of the urethra Urethra: normal appearance of the urethra Speculum Exam - Vagina: normal appearance of the vagina and other (normal vaginal length, apex well supprted and healed, intact no granulation) Speculum Exam - Cervix: absent Bimanual Exam- Vagina & Uterus: uterus absent Bimanual Exam- Adnexa, other: normal and non-tender Pelvic Support: normal Other: vaginal cuff normal and intact, good vaginal length, no granulation tissue present Coding Level of Care Code Off vis,est,level 3 Diagnoses Postmenopausal bleeding N95.0 Assessment and Plan Assessment and Plan (1) Postmenopausal bleeding: Status: Acute Plan Assessment and Plan 69-year-old female with a history of postmenopausal status presenting with concerns of vaginal bleeding and tearing. The bleeding episode was significant enough to require an emergency room visit, attributed to vaginal tearing during intercourse. The examination revealed normal vaginal appearance with no visible tears or scar tissue, indicating good healing. The patient is advised to use a non-hormonal vaginal moisturizer and lubricant to maintain vaginal health and prevent future tearing. 1. Vaginal Bleeding The patient experienced a significant vaginal bleeding episode attributed to tearing during intercourse, which required an emergency room visit. The examination showed normal vaginal appearance with no visible tears or scar tissue, indicating good healing. The plan includes advising the patient to use anon-hormonal vaginal moisturizer and lubricant to prevent dryness and potential future tearing. 2. Vaginal Tearing The vaginal tearing was associated with deep penetration during intercourse, leading to significant bleeding. The patient is advised to avoid deep penetration and use a lubricant to prevent further tearing. 06/21/25 1332 <Electronically signed by Anushka jackson MD> Date _ Anushka Isaac MD Cosigner Signature: Date (if applicable) CC: ~ [facility] Work Phone: Reason for referral (narrative)* Diagnostic Procedure Only (Urgent) - Closed Specialty Diagnoses / Procedures Referred By Contac t Referred To Contact XR IMAGING Diagnoses Acute left ankle pain Procedures XR ANKLE GENERAL 3V AP/LAT/OBL LEFT RADEX ANKLE COMPLETE MINIMUM 3 VIEWS Nataly Ryan, [place].DIRECTOR STATISTICAL PROGRAMMING [address] [place] [address] Xr Imaging Referral ID Status Reason Start Date Expiration Date V isits Requested Visits Authorized [id number] Closed Auto-Generate d Referral 01/23/2022 09/27/2022 1 1 [facility] for referral (narrative)* Diagnostic Procedure Only (Routine) - Authorized Specialty Diagnoses / Procedures Referred By Contac t Referred To Contact XR IMAGING Diagnoses Closed fracture of distal end of left fibula, unspecified fracture morphology, initial encounter Procedures XR ANKLE GENERAL 3V AP/LAT/OBL LEFT RADEX ANKLE COMPLETE MINIMUM 3 VIEWS Steve Rodriguez [address] [place] [address] Xr Imaging Referral ID Status Reason Start Date Expiration Date Visits Requested Visits Authorized [id number] Authorized Auto-Generat ed Referral 02/10/2022 09/27/2022 1 1 [facility] for referral (narrative)* Diagnostic Procedure Only (Routine) - Closed Specialty Diagnoses / Procedures Referred By Contac t Referred To Contact XR IMAGING Diagnoses Closed fracture of distal end of left fibula, unspecified fracture morphology, initial encounter Procedures XR ANKLE GENERAL 3V AP/LAT/OBL LEFT RADEX ANKLE COMPLETE MINIMUM 3 VIEWS Steve Rodriguez [address] [place] [address] Xr Imaging Referral ID Status Reason Start Date Expiration Date V isits Requested Visits Authorized [id number] Closed Auto-Generate d Referral 02/10/2022 09/27/2022 1 1 [facility] for referral (narrative)* Outpatient Procedure (Routine) - Open Specialty Diagnoses / Procedures Referred By Contac t Referred To [facility] Diagnoses Uncontrolled hypertension Palpitations Procedures US RENAL ARTERY ZULMA VAS LAB DUP-SCAN ARTL SKYLAR ABDL/PEL/SCROT&/RPR ORGN COM Preet Farrar DO [address] [place] [address] [facility] [address] [place] [address] Referral ID Status Reason Start Date Expiration Date V isits Requested Visits Authorized [id number] Open Auto-Generate d Referral 02/19/2022 02/19/2023 1 1 * Outpatient Procedure (Routine) - Closed Specialty Diagnoses / Procedures Referred By Contac t Referred To Contact [facility] Diagnoses Uncontrolled hypertension Palpitations Procedures ECG COMPLETE ECG ROUTINE ECG W/LEAST 12 LDS W/I&R Preet Farrar DO [address] [place] [address] [address] Referral ID Status Reason Start Date Expiration Date V isits Requested Visits Authorized [id number] Closed Auto-Generate d Referral 02/19/2022 02/19/2023 1 1 * Outpatient Procedure (Routine) - Authorized Specialty Diagnoses / Procedures Referred By Contac t Referred To Contact [facility] Diagnoses Uncontrolled hypertension Palpitations Procedures ECHO ECHO TTHRC R-T 2D W/WOM-MODE COMPL SPEC&COLR D Preet Farrar DO [address] [place] [address] [address] Referral ID Status Reason Start Date Expiration Date Visits Requested Visits Authorized [id number] Authorized Auto-Generat ed Referral 02/19/2022 02/19/2023 1 1 * Outpatient Procedure (Routine) - Open Specialty Diagnoses / Procedures [facility]erred [facility] Referred To Contact [facility] Diagnoses Uncontrolled hypertension Palpitations Procedures US CAROTID ARTERIES ZULMA VAS LAB DUPLEX SCAN EXTRACRANIAL ART COMPL BI STUDY Preet Farrar DO [address] [place] [address] [address] Referral ID Status Reason Start Date Expiration Date V isits Requested Visits Authorized [id number] Open Auto-Generate d Referral 02/19/2022 02/19/2023 1 1 [facility] for referral (narrative)* Diagnostic Procedure Only (Routine) - Closed Specialty Diagnoses / Procedures Referred By Contac t Referred To Contact XR IMAGING Diagnoses Closed fracture of distal end of left fibula, unspecified fracture morphology, initial encounter Procedures XR ANKLE GENERAL 3V AP/LAT/OBL LEFT RADEX ANKLE COMPLETE MINIMUM 3 VIEWS Steve Rodriguez [address] [place] [address] Xr Imaging Referral ID Status Reason Start Date Expiration Date V isits Requested Visits Authorized [id number] Closed Auto-Generate d Referral 02/28/2022 03/30/2023 1 1 T [facility] for referral (narrative)* Diagnostic Procedure Only (Routine) - Pending Review Specialty Diagnoses / Procedures Referred By Miguel Ángel t Referred To Contact [facility] Diagnoses Encounter for screening mammogram for breast cancer Procedures LAURO SCREENING SCREENING MAMMOGRAPHY BI 2-VIEW BREAST INC CAD Preet Farrar, DO [address] [place] [address] [facility] [address] [place] [address] Referral ID Status Reason Start Date Expiration Date Visits Requested Visits Authorized [id number] Pending Review Auto-Generat ed Referral 03/26/2022 04/25/2023 1 1 T [facility] for referral (narrative)* Diagnostic Procedure Only (Routine) - Pending Review Specialty Diagnoses / Procedures Referred By Miguel Ángel t Referred To Contact [facility] Diagnoses Encounter for screening mammogram for breast cancer Procedures LAURO SCREENING SCREENING MAMMOGRAPHY BI 2-VIEW BREAST INC CAD Preet Farrar, DO [address] [place] [address] [facility] [address] [place] [address] Referral ID Status Reason Start Date Expiration Date Visits Requested Visits Authorized [id number] Pending Review Auto-Generat ed Referral 02/03/2024 03/04/2025 1 1 T [facility] for referral (narrative)* Diagnostic Procedure Only (Urgent) - Closed Specialty Diagnoses / Procedures Referred By Contac t Referred To Contact XR IMAGING Diagnoses Acute left ankle pain Procedures XR ANKLE GENERAL 3V AP/LAT/OBL LEFT RADEX ANKLE COMPLETE MINIMUM 3 VIEWS Nataly Ryan APRN.DIRECTOR STATISTICAL PROGRAMMING [address] [place] [address] [place] [address] Referral ID Status Reason Start Date Expiration Date V isits Requested Visits Authorized [id number] Closed Auto-Generate d Referral 01/23/2022 09/27/2022 1 1 [facility] for referral (narrative)No reason for referral information availableWSCCI [facility] Work Phone: Reason for visit Narrative* Diagnostic Procedure Only (Routine) - Closed Specialty Diagnoses / Procedures Referred By Contac t Referred To Contact XR IMAGING Diagnoses Closed fracture of distal end of left fibula, unspecified fracture morphology, initial encounter Procedures XR ANKLE GENERAL 3V AP/LAT/OBL LEFT RADEX ANKLE COMPLETE MINIMUM 3 VIEWS Steve Rodriugez [address] [place] [address] Xr Imaging Referral ID Status Reason Start Date Expiration Date V isits Requested Visits Authorized [id number] Closed Auto-Generate d Referral 02/10/2022 09/27/2022 1 1 [facility] for visit Narrative* Diagnostic Procedure Only (Routine) - Closed Specialty Diagnoses / Procedures Referred By Contac t Referred To Contact XR IMAGING Diagnoses Closed fracture of distal end of left fibula, unspecified fracture morphology, initial encounter Procedures XR ANKLE GENERAL 3V AP/LAT/OBL LEFT RADEX ANKLE COMPLETE MINIMUM 3 VIEWS Steve Rodriguez [address] [place] [address] Xr Imaging Referral ID Status Reason Start Date Expiration Date V isits Requested Visits Authorized [id number] Closed Auto-Generate d Referral 02/28/2022 09/27/2022 1 1 [facility] for visit Narrative* Diagnostic Procedure Only (Urgent) - Closed Specialty Diagnoses / Procedures Referred By Contac t Referred To Contact XR IMAGING Diagnoses Acute left ankle pain Procedures XR ANKLE GENERAL 3V AP/LAT/OBL LEFT RADEX ANKLE COMPLETE MINIMUM 3 VIEWS Nataly Ryan APRN.DIRECTOR STATISTICAL PROGRAMMING [address] [place] [id number] [place] [id number] Referral ID Status Reason Start Date Expiration Date V isits Requested Visits Authorized [id number] Closed Auto-Generate d Referral 01/23/2022 09/27/2022 1 1 [facility] Discharge Instructions * Discharge Instr - [...] file. Discharging Nurse: [facility] Unit/Room#: 6134/[id number] Discharging Unit Emergency Contact: Extended Emergency Contact Information Primary Emergency Contact: FrancisAlicia Mobile Relation: Child Past Surgical History: Past [...] Assisted Dressing Assisted Toileting Assisted Feeding Independent Body Design Checker Independent Med Delivery whole Wound Care Documentation [...] Readmission: 9 Discharging to Facility/ Agency Name: [facility] Address: [address] [place] [address] Dialysis Facility (if applicable) Name: Address: Dialysis Schedule: Phone: Fax: Excellence Manager/Physical Chemist signature: ICIAN SECTION Prognosis: Fair Condition at [...] level decreases, you may begin to take [id number] Extra Strength Tylenol. The maximum Tylenol you [...] you are to contact the office at [phone] or via [employer], for additional refills You can receive up [...] additional questions/concerns, please contact the office at [employer] message For life-threathening emergency, please call 911 documented in this encounter History of Present Illness * Vera Campbell DTR - 12/28/2020 1:02 PM EDT Nutrition update completed. Chart reviewed. Patient to be monitored and followed by the diet medical records technician. * Steve Veloz - 12/28/2020 12:04 PM EDT Physical Therapy Facility/Department: [facility] Daily Treatment Note NAME: Deonte Blanco [...] technique. Pt. is getting discharged today to [facility]. Pt. was in better spirits today [...] stated she was excited to go to [facility] because her kids are closer. Pt. still [...] 1 supine to sit (OK for leg box blank machine feeder or manual support of LEs) - PROGRESSING Short term goal 2: Sitting EOB [birth year] Modified [place] - PROGRESSING Short term goal 3: Transfer board to w/c min of 1 - progresing Short term goal 4: Gross LLE antigravity strength 3-/5, RLE 2/5 - PROGRESSING Short term goal 5: pt/ family indep donning LSO - PROGRESSING termite renewal inspector goals Time Frame for termite renewal inspector goals : 4 weeks [facility] goal 1: Bed mobility indep - PROGRESSING [facility] goal 2: Bed to chair, any safe approach, supv - PROGRESSING [facility] goal 3: Sit to stand mod of 1 - PROGRESSING [facility] goal 4: Sitting balance modified [place] 06/07, standing 12/05 - PROGRESSING termite renewal inspector goal 5: Amb 15', device, mod of [...] mask when out of room FRANCOIS Jacobsen COMMERCIAL PEST CONTROL REPRESENTATIVE * Valarie Aguilar RN - 12/28/2020 11:52 AM EDT Report called to [facility]. paint supervisor time 1400 * Tammi Rae DO - 12/27/2020 6:36 PM EDT Images from the original note were not included. Hospitalist Progress Note 12/27/2020 6:36 PM Subjective: Admit Date: 12/21/2020 PCP: No primary care provider on file. Interval History: No overnight issues. DIET GENERAL; I/O last 3 completed shifts: In: 200 [P.O.:200] Out: 1 [Urine:1] Date 12/27/20 0000 - 12/27/20 2359 Shift [id number] 6294-8767 [id number] 24 Hour Total INTAKE P.O.(mL/kg/hr) 300(0.5) 240 [...] CHOL No results found for: PHART, PO2ART, [id number] No results for input(s): INR in the [...] For question after 7 PM, please contact [facility] hospitalist on consult. Tammi Rae MD [facility] Hospitalist * Steve Veloz - 12/27/2020 11:10 AM EDT Physical Therapy Facility/Department: [facility] Daily Treatment Note NAME: Deonte March Francis : 1955 Date of Service: 12/27/2020 Discharge [...] 1 supine to sit (OK for leg box blank machine feeder or manual support of LEs) - PROGRESSING Short term goal 2: Sitting EOB [birth year] Modified [place] - PROGRESSING Short term goal 3: Transfer board to w/c min of 1 - NOT ADDRESSED Short term goal 4: Gross LLE antigravity strength 3-/5, RLE 2/5 - PROGRESSING Short term goal 5: pt/ family indep donning LSO - PROGRESSING termite renewal inspector goals Time Frame for [facility] goals : 4 weeks termite renewal inspector goal 1: Bed mobility indep - PROGRESSING [facility] goal 2: Bed to chair, any safe approach, supv - PROGRESSING termite renewal inspector goal 3: Sit to stand mod of 1 - PROGRESSING [facility] goal 4: Sitting balance modified [place] 06/07, standing 10 - PROGRESSING [facility] goal 5: Amb 15', device, mod of [...] mask when out of room FRANCOIS Jacobsen, COMMERCIAL PEST CONTROL REPRESENTATIVE * Tammi Rae, DO - 12/26/2020 9:59 AM EDT Images from the original note were not included. Hospitalist Progress Note 12/26/2020 5:59 PM Subjective: Admit Date: 12/21/2020 PCP: No primary care provider on file. Interval History: No overnight issues. DIET GENERAL; I/O last 3 completed shifts: In: 2300 [P.O.:2300] Out: 1100 [Urine:1100] Date 12/26/20 0000 - 12/26/20 2359 Shift [id number] 9957-6983 1114-2443 24 Hour Total INTAKE P.O.(mL/kg/hr) 600(0.9) 200(0.3) [...] CHOL No results found for: PHART, PO2ART, [id number] No results for input(s): INR in the [...] For question after 7 PM, please contact [facility] hospitalist on consult. Tammi Rae MD [facility] * Mayte Gunter MD - 12/25/2020 12:46 PM EDT Hospitalist Progress Note 12/25/2020 12:46 PM Subjective: Admit Date: 12/21/2020 PCP: No primary care provider on file. Interval History: No overnight issues. DIET GENERAL; I/O last 3 completed shifts: In: - Out: 1900 [Urine:1900] Date 12/25/20 0000 - 12/25/20 2359 Shift [id number] 0545-9882 8553-8476 24 Hour Total INTAKE Shift Total(mL/kg) OUTPUT [...] CHOL No results found for: PHART, PO2ART, [id number] No results for input(s): INR in the [...] relistor. PT/OT Awaiting rehab Mayte Gunter MD [facility] * Jemima Bonilla OT - 12/25/2020 10:23 AM EDT Occupational [...] Ambulation Assistance: Independent Transfer Assistance: Independent Active Purchasing Director: Yes Occupation: Retired [employer]AD[employer] Comments: pt had [...] & procurement, Self-Care / ADL OutComes Score [facility] Daily Activity Inpatient How much help for putting on and taking off regular lower body clothing?: Total How much help for Bathing?: A Lot How much help for Toileting?: Total How much help for putting on and taking off regular upper body clothing?: A Little How much help for taking care of personal grooming?: None How much help for eating meals?: None [facility] Inpatient Daily Activity Raw Score: 15 [facility] Inpatient ADL T-Scale Score : 34.69 ADL [...] Plan of Care supervision is transferred to [facility] Occupational Therapist. Goals and/or treatment plan was established in collaboration with patient/family/other representatives. Jemima Bonilla OTR/Keshia Bonilla OT * Ness Aparicio PTA - 12/25/2020 10:21 AM EDT Physical Therapy Facility/Department: [facility] Daily Treatment Note NAME: Deonte Blanco [...] 1 supine to sit (OK for leg box blank machine feeder or manual support of LEs) - PROGRESSING Short term goal 2: Sitting EOB [birth year] Modified [place] - PROGRESSING Short term goal 3: Transfer board to w/c min of 1 - NOT ADDRESSED Short term goal 4: Gross LLE antigravity strength 3-/5, RLE 2/5 - PROGRESSING Short term goal 5: pt/ family indep donning LSO - PROGRESSING [facility] goals Time Frame for [facility]FP goals : 4 weeks termite renewal inspector goal 1: Bed mobility indep - PROGRESSING [facility] goal 2: Bed to chair, any safe approach, supv - PROGRESSING termite renewal inspector goal 3: Sit to stand mod of 1 - PROGRESSING [facility] goal 4: Sitting balance modified [place] 06/07, standing 12/05 - PROGRESSING termite renewal inspector goal 5: Amb 15', device, mod of [...] Date 12/24/20 0000 - 12/24/20 2359 Shift [id number] 3252-3798 8662-2294 24 Hour Total INTAKE Shift Total(mL/kg) OUTPUT [...] CHOL No results found for: PHART, PO2ART, [id number] No results for input(s): INR in the [...] PT/OT Plan for rehab Mayte Gunter MD [facility] Hospitalist * Steve Martinez MD - 12/24/2020 [...] AVS -Ortho to sign off, please page web production manager resident with questions or concerns Treva Henderson [...] Will put pt on schedule for OT jessenia. MING Cifuentes/L * Mayte Gunter MD - 12/23/2020 12:14 PM EDT Hospitalist Progress Note 12/23/2020 12:14 PM Subjective: Admit Date: 12/21/2020 PCP: No primary care provider on file. Interval History: No overnight issues. DIET GENERAL; I/O last 3 completed shifts: In: 2675 [P.O.:1300; I.V.:1375] Out: 5165 [Urine:5050; Drains:115] Date 12/23/20 0000 - 12/23/20 2359 Shift 6918-9111 3735-1382 2507-4018 24 Hour Total INTAKE P.O.(mL/kg/hr) 400(0.6) 400 [...] CHOL No results found for: PHART, PO2ART, [id number] Recent Labs 12/21/20 0528 INR 1.0 No [...] 12/23/2020 11:24 AM EDT Physical Therapy Facility/Department: [facility] Daily Treatment Note NAME: Deonte Blanco [...] 1 supine to sit (OK for leg box blank machine feeder or manual support of LEs) - PROGRESSING Short term goal 2: Sitting EOB [birth year] Modified [place] - PROGRESSING Short term goal 3: Transfer board to w/c min of 1 - NOT MET Short term goal 4: Gross LLE antigravity strength 3-/5, RLE 2/5 - NOT MET Short term goal 5: pt/ family indep donning LSO - PROGRESSING [facility] goals Time Frame for [facility] goals : 4 weeks termite renewal inspector goal 1: Bed mobility indep - PROGRESSING [facility] goal 2: Bed to chair, any safe approach, supv - NOT ATTEMPTED [facility] goal 3: Sit to stand mod of 1 - NOT MET [facility] goal 4: Sitting balance modified [place] 9/10, standing 3/10 - PROGRESSING [facility] goal 5: Amb 15', device, mod of [...] was completed by a student physical therapist housekeeper and laundry assistant under the supervision of the cosigning therapist. Dori Candelario, COMMERCIAL PEST CONTROL REPRESENTATIVE\ * Sulaiman Youngblood MD - 12/23/2020 9:56 [...] be monitored and followed by the diet medical records technician. * Mayte Gunter MD - 12/22/2020 12:02 PM EDT Hospitalist Progress Note 12/22/2020 12:02 PM Subjective: Admit Date: 12/21/2020 PCP: No primary care provider on file. Interval History: No overnight issues. DIET GENERAL; I/O last 3 completed shifts: In: 2030 [P.O.:180; I.V.:1850] Out: 2640 [Urine:2250; Drains:140; Blood:250] Date 12/22/20 0000 - 12/22/20 2359 Shift 2545-8792 8261-3924 8878-8806 24 Hour Total INTAKE Shift Total(mL/kg) OUTPUT Urine(mL/kg/hr) 1250(1.9) 800 2050 Drains(mL/kg) 80(1) 50(0.6) 130(1.6) Shift Total(mL/kg) 1330(16.3) [...] CHOL No results found for: PHART, PO2ART, [id number] Recent Labs 12/21/20 0528 INR 1.0 No [...] 12/22/2020 11:30 AM EDT Physical Therapy Facility/Department: [facility] Initial Assessment NAME: Deonte Blanco : [...] Will procure multipodus orthotics for now--consult to [employer] for LSO. Pt plans/ hopes to be discharged to [facility]--rehab level PT seems most appropriate. Prognosis: [...] (pt has order for LSO (consult to [employer])) Position Activity Restriction Spinal Precautions: No Bending, [...] she called squad to take her to [facility]. 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[employer] Comments: pt had [...] notified as IV with air-in-line) AM-PAC Score [facility] Inpatient Mobility Raw Score : 6 (12/22/20 1104) [facility] Inpatient T-Scale Score : 23.55 (12/22/20 1104) Mobility Inpatient CMS 0-100% Score: 100 (12/22/20 1104) Mobility Inpatient CMS G-Code Modifier : CN (12/22/20 110) Goals Short term goals Time Frame for Short term goals: 2 weeks Short term goal 1: Log roll min of 1 for pelvic support; min of 1 supine to sit (OK for leg box blank machine feeder or manual support of LEs) Short term goal 2: Sitting EOB [birth year] Modified [place] Short term goal 3: Transfer board to w/c min of 1 Short term goal 4: Gross LLE antigravity strength 3-/5, RLE 2/5 Short term goal 5: pt/ family indep donning LSO MCFP goals Time Frame for MCFP goals : 4 weeks termite renewal inspector goal 1: Bed mobility indep termite renewal inspector goal 2: Bed to chair, any safe approach, supv termite renewal inspector goal 3: Sit to stand mod of 1 MCFP goal 4: Sitting balance modified [place] 9/10, standing 3/10 termite renewal inspector goal 5: Amb 15', device, mod of 1 Patient Goals Patient goals : walk Therapy Time Individual Concurrent Group Co-treatment Time In 1026 Time Out 1104 Minutes 38 Patient s Physical Therapy Plan of Care supervision is transferred to [facility] Re[facility] Department Physical Therapist. PT wore [...] No December 31, 2020 3:01pm Power of Fisher Purse Seine No December 31 3:01pm Advance Directive Response Recorded Date/ Time Name of Medical Power of Fisher Purse Seine amanuel Greer November 02, 2022 5:30pm Living Will No November 02 5:30pm Power of Fisher Purse Seine Yes November 02, 2022 5:30pm Advance Directive Response Recorded Date/ Time Living Will No November 02 6:30pm Power of Fisher Purse Seine Yes November 02, 2022 6:30pm Advance Directive Response Recorded Date/ Time Living Will No July 01 8:20pm Power of Fisher Purse Seine No July 01 8:20pm Advance Directive Response Recorded Date/ Time Living Will No December 27, 2024 6:19pm Do you have a Healthcare Power of Fisher Purse Seine? No December 27, 2024 6:19pm Advance Directive Response Recorded Date/ Time Living Will No December 27, 2024 6:19pm Do you have a Healthcare Power of Fisher Purse Seine? No December 27, 2024 6:19pm Do you have a Healthcare Power of Fisher Purse Seine? No April 15, 2025 1:41pm Advance Directive Response Recorded Date/ Time Do you have a Healthcare Power of Fisher Purse Seine? No April 15, 2025 1:41pm Do you have a Healthcare Power of Fisher Purse Seine? No May 25, 2025 9:45pm Summary Purpose Family History No Family History [...] care January 10:49am Chief Complaint Admit Date 6 M FU January 26, 2025 2:04pm 6 wk TVHBS February 06, 2025 10:49 am Atherosclerosis of renal artery January 4:09pm dka April 15, 2025 1:11 pm VAG BLEED May 25, 2025 9: 38pm Reason for Visit Admit Date Aortic valve stenosis with insufficiency January 26, [...] care January 10:49am Chief Complaint Admit Date dka April 15, 2025 1:11 pm VAG BLEED May 25, 2025 9: 38pm VAG BLEED May 26, 2025 1: 57am ER follow up heavy bleeding June [id number] 12:58pm Reason for Visit Admit Date Postmenopausal bleeding June 21, 2025 12:58pm Reason for Referral Specialty Diagnoses / Procedures Referred By Contac t Referred To Contact Diagnoses Uncontrolled type 2 diabetes mellitus with hyperglycemia (HCC) Kathryn Rivero, CONTINUOUS IMPROVEMENT SPECIALIST.DIRECTOR STATISTICAL PROGRAMMING [address] [place] [address] Referral ID Status Reason Start Date Expiration Date Visits Re quested Visits Authorized [id number] Denied 1 1 Specialty Diagnoses / Procedures Referred By Contac t Referred To Contact Cardiology Diagnoses Uncontrolled type 2 diabetes mellitus with hyperglycemia (HCC) Nonrheumatic aortic valve stenosis Hyperlipidemia, mixed Procedures CONSULT TO CARDIOLOGY OFFICE/OUTPATIENT [facility] 60 MINUTES Preet Farrar, [address] [place] [address] Referral ID Status Reason Start Date Expiration Date Visits Requested Visits Authorized [id number] Authorized PCP Requested Referral 12/09/2023 12/08/2024 1 1 Specialty Diagnoses / Procedures Referred By Contac t Referred To Contact Diagnoses Uncontrolled type 2 diabetes mellitus with hyperglycemia (HCC) Vaginal yeast infection Jacqueline Candelario, CONTINUOUS IMPROVEMENT SPECIALIST.DIRECTOR STATISTICAL PROGRAMMING [address] [place] [address] Referral ID Status Reason Start Date Expiration Date V isits Requested Visits Authorized [id number] Authorized 01/27/2024 09/27/2024 1 1 Specialty Diagnoses / Procedures Referred By Contac t Referred To Contact Endocrinology Diagnoses Uncontrolled type 2 diabetes mellitus with hyperglycemia (HCC) Procedures CONSULT TO ENDOCRINOLOGY OFFICE/OUTPATIENT NEW HIGH MDM 60 MINUTES Preet Farrar DO [address] [place] [address] Referral ID Status Reason Start Date Expiration Date Visits Requested Visits Authorized [id number] Authorized PCP Requested Referral 03/21/2024 03/21/2025 1 1 Specialty Diagnoses / Procedures Referred By Contac t Referred To Contact Gynecology Diagnoses LLQ pain Thickened endometrium Procedures CONSULT TO GYNECOLOGY OFFICE/OUTPATIENT NEW HIGH MDM 60 MINUTES AlvaradologCatalina arreguin APRN.DIRECTOR STATISTICAL PROGRAMMING [address] [place] [address] Referral ID Status Reason Start Date Expiration Date Visits Requested Visits Authorized [id number] Authorized PCP Requested Referral Auto-Generate d Referral [...] sprain Procedures URGENT CARE Self Nataly Ryan APRN.DIRECTOR STATISTICAL PROGRAMMING [address] [place] [id number] Referral ID Status Reason Start Date Expiration Date Visits Re quested Visits Authorized [id number] Closed 01/23/2022 09/27/2022 1 1 Reason Comments New Patient Fracture Specialty Diagnoses / Procedures Referred By Contac t Referred To Contact Podiatry / PODIATRY Diagnoses foot fracture Procedures PANCHITO NEW FRACTURE Nataly Ryan APRN.DIRECTOR STATISTICAL PROGRAMMING [address] [place] [address] [address] [place] [address] Referral ID Status Reason Start Date Expiration Date Visits Re quested Visits Authorized [id number] Closed 01/30/2022 09/27/2022 1 1 Reason Comments Blood Pressure Specialty Diagnoses / Procedures Referred By Contac t Referred To Contact Family Practice / FAMILY MEDICINE Diagnoses Elevated BP. UC f/u 428, left ankle fracture. Procedures 4C EST Self Kathryn Rivero, CONTINUOUS IMPROVEMENT SPECIALIST.DIRECTOR STATISTICAL PROGRAMMING [address] [place] [address] Referral ID Status Reason Start Date Expiration Date Visits Re quested Visits Authorized [id number] Closed 01/31/2022 09/27/2022 1 1 Reason Comments Follow Up Specialty Diagnoses / Procedures Referred By Contwiliam t Referred To Contact Family Practice / FAMILY MEDICINE Diagnoses Follow up BP, Thyroid Procedures 4C EST Preet Farrar, DO [address] [place] [address] Preet Farrar, DO [address] [place] [address] Referral ID Status Reason Start Date Expiration Date Visits Re quested Visits Authorized [id number] Closed 02/19/2022 09/27/2022 1 1 Reason Onset [...] Date Comments Refill Request 03/03/2023 Reason Comments Wray thyroid PA Reason Comments go over blood sugars and diet Reason Comments medication issue Reason Onset Date Comments Refill Request 05/18/2023 Reason Comments Follow Up 3 months- DM Reason Comments b/s high yesterday and today This shemarnin g b?s was 259, she states been nauseated and lft eye cloudy Reason Comments Hospital F/U Virus, pt recently h ad a fall due to dizziness, reports in scanned docs. Reason Comments Medication Problem Reason Comments Call from Dr. Stapleton, Neurologist Reason Onset Date Comments Population Health Navigation Outreach 07/29/2023 [facility] care gap Reason Comments Medication Question Reason [...] Comments Transition Of Care Reason Comments Insulin Peyton Reason Comments Patient Update Blood Sugar Readings Reason Comments Type 2 Diabetes Reason Comments Future Appointment Reason Onset Date Comments Refill Request 05/23/2024 Reason Comments ER F/U 05/22/2024 [facility] for le ft lower quadrant pain Reason Onset Date Comments Refill Request 06/15/2024 Reason Onset Date Comments Refill Request 06/17/2024 Reason Comments Faxed Labs Surgical Clearance Forms Reason Onset Date Comments Population [facility] Navigation Outreach 08/09/2024 [facility] INITIATIVE Reason Comments [...] Refill Request 04/03/2025 Reason Comments ER F/U [facility] 04/15 for hypergl ycemia, nausea, dizzy, BS this AM 169 Reason Onset Date Comments Refill Request 04/19/2025 Reason Onset Date Comments Refill Request 05/15/2025 Lab Orders 05/15/2025 Reason Comments F/U 3 Month Ordered Prescriptions (unrec ognized section and content) [...] section and content) DATE CREATED AUTHOR 09/18/2021 [employer] DATE CREATED AUTHOR AUTHOR'S ORGANIZ ATION 12/20/2023 [facility] ([place]) DATE CREATED AUTHOR AUTHOR'S ORGANIZ ATION 06/06/2025 [facility] DATE CREATED AUTHOR AUTHOR'S ORGANIZ ATION 07/08/2025 [facility] Source Comments (unrecognize d section and content) In the event this informatio n is protected by the Federal Confidentiality of Alcohol and Drug Abuse Patient Records regulations: The Federal rules restrict any use of the information to criminally investigate or prosecute any alcohol or drug abuse patient.[facility] Hospital[facility] the event this information is protected by the Federal Confidentiality of Alcohol and Drug Abuse Patient Records regulations: The Federal rules restrict any use of the information to criminally investigate or prosecute any alcohol or drug abuse patient.[facility] HospitalIn the event this information is protected by the Federal Confidentiality of Alcohol and Drug Abuse Patient Records regulations: The Federal rules restrict any use of the information to criminally investigate or prosecute any alcohol or drug abuse patient.[facility] HospitalIn the event this information is protected by the Federal Confidentiality of Alcohol and Drug Abuse Patient Records regulations: The Federal rules restrict any use of the information to criminally investigate or prosecute any alcohol or drug abuse patient.[facility] HospitalIn the event this information is protected by the Federal Confidentiality of Alcohol and Drug Abuse Patient Records regulations: The Federal rules restrict any use of the information to criminally investigate or prosecute any alcohol or drug abuse patient.[facility] HospitalIn the event this information is protected by the Federal Confidentiality of Alcohol and Drug Abuse Patient Records regulations: The Federal rules restrict any use of the information to criminally investigate or prosecute any alcohol or drug abuse patient.[facility] HospitalIn the event this information is protected by the Federal Confidentiality of Alcohol and Drug Abuse Patient Records regulations: The Federal rules restrict any use of the information to criminally investigate or prosecute any alcohol or drug abuse patient.[facility] HospitalIn the event this information is protected by the Federal Confidentiality of Alcohol and Drug Abuse Patient Records regulations: The Federal rules restrict any use of the information to criminally investigate or prosecute any alcohol or drug abuse patient.[facility] HospitalIn the event this information is protected by the Federal Confidentiality of Alcohol and Drug Abuse Patient Records regulations: The Federal rules restrict any use of the information to criminally investigate or prosecute any alcohol or drug abuse patient.[facility] HospitalIn the event this information is protected by the Federal Confidentiality of Alcohol and Drug Abuse Patient Records regulations: The Federal rules restrict any use of the information to criminally investigate or prosecute any alcohol or drug abuse patient.[facility] HospitalIn the event this information is protected by the Federal Confidentiality of Alcohol and Drug Abuse Patient Records regulations: The Federal rules restrict any use of the information to criminally investigate or prosecute any alcohol or drug abuse patient.[facility] HospitalIn the event this information is protected by the Federal Confidentiality of Alcohol and Drug Abuse Patient Records regulations: The Federal rules restrict any use of the information to criminally investigate or prosecute any alcohol or drug abuse patient.[facility] HospitalIn the event this information is protected by the Federal Confidentiality of Alcohol and Drug Abuse Patient Records regulations: The Federal rules restrict any use of the information to criminally investigate or prosecute any alcohol or drug abuse patient.[facility] HospitalIn the event this information is protected by the Federal Confidentiality of Alcohol and Drug Abuse Patient Records regulations: The Federal rules restrict any use of the information to criminally investigate or prosecute any alcohol or drug abuse patient.[facility] HospitalIn the event this information is protected by the Federal Confidentiality of Alcohol and Drug Abuse Patient Records regulations: The Federal rules restrict any use of the information to criminally investigate or prosecute any alcohol or drug abuse patient.[facility] HospitalIn the event this information is protected by the Federal Confidentiality of Alcohol and Drug Abuse Patient Records regulations: The Federal rules restrict any use of the information to criminally investigate or prosecute any alcohol or drug abuse patient.[facility] HospitalIn the event this information is protected by the Federal Confidentiality of Alcohol and Drug Abuse Patient Records regulations: The Federal rules restrict any use of the information to criminally investigate or prosecute any alcohol or drug abuse patient.[facility] HospitalIn the event this information is protected by the Federal Confidentiality of Alcohol and Drug Abuse Patient Records regulations: The Federal rules restrict any use of the information to criminally investigate or prosecute any alcohol or drug abuse patient.[facility] HospitalIn the event this information is protected by the Federal Confidentiality of Alcohol and Drug Abuse Patient Records regulations: The Federal rules restrict any use of the information to criminally investigate or prosecute any alcohol or drug abuse patient.[facility] HospitalIn the event this information is protected by the Federal Confidentiality of Alcohol and Drug Abuse Patient Records regulations: The Federal rules restrict any use of the information to criminally investigate or prosecute any alcohol or drug abuse patient.[facility] HospitalIn the event this information is protected by the Federal Confidentiality of Alcohol and Drug Abuse Patient Records regulations: The Federal rules restrict any use of the information to criminally investigate or prosecute any alcohol or drug abuse patient.[facility] HospitalIn the event this information is protected by the Federal Confidentiality of Alcohol and Drug Abuse Patient Records regulations: The Federal rules restrict any use of the information to criminally investigate or prosecute any alcohol or drug abuse patient.[facility] HospitalIn the event this information is protected by the Federal Confidentiality of Alcohol and Drug Abuse Patient Records regulations: The Federal rules restrict any use of the information to criminally investigate or prosecute any alcohol or drug abuse patient.[facility] HospitalIn the event this information is protected by the Federal Confidentiality of Alcohol and Drug Abuse Patient Records regulations: The Federal rules restrict any use of the information to criminally investigate or prosecute any alcohol or drug abuse patient.[facility] HospitalIn the event this information is protected by the Federal Confidentiality of Alcohol and Drug Abuse Patient Records regulations: The Federal rules restrict any use of the information to criminally investigate or prosecute any alcohol or drug abuse patient.[facility] HospitalIn the event this information is protected by the Federal Confidentiality of Alcohol and Drug Abuse Patient Records regulations: The Federal rules restrict any use of the information to criminally investigate or prosecute any alcohol or drug abuse patient.[facility] HospitalIn the event this information is protected by the Federal Confidentiality of Alcohol and Drug Abuse Patient Records regulations: The Federal rules restrict any use of the information to criminally investigate or prosecute any alcohol or drug abuse patient.[facility] HospitalIn the event this information is protected by the Federal Confidentiality of Alcohol and Drug Abuse Patient Records regulations: The Federal rules restrict any use of the information to criminally investigate or prosecute any alcohol or drug abuse patient.[facility] HospitalIn the event this information is protected by the Federal Confidentiality of Alcohol and Drug Abuse Patient Records regulations: The Federal rules restrict any use of the information to criminally investigate or prosecute any alcohol or drug abuse patient.[facility] HospitalIn the event this information is protected by the Federal Confidentiality of Alcohol and Drug Abuse Patient Records regulations: The Federal rules restrict any use of the information to criminally investigate or prosecute any alcohol or drug abuse patient.[facility] HospitalIn the event this information is protected by the Federal Confidentiality of Alcohol and Drug Abuse Patient Records regulations: The Federal rules restrict any use of the information to criminally investigate or prosecute any alcohol or drug abuse patient.[facility] HospitalIn the event this information is protected by the Federal Confidentiality of Alcohol and Drug Abuse Patient Records regulations: The Federal rules restrict any use of the information to criminally investigate or prosecute any alcohol or drug abuse patient.[facility] HospitalIn the event this information is protected by the Federal Confidentiality of Alcohol and Drug Abuse Patient Records regulations: The Federal rules restrict any use of the information to criminally investigate or prosecute any alcohol or drug abuse patient.[facility] HospitalIn the event this information is protected by the Federal Confidentiality of Alcohol and Drug Abuse Patient Records regulations: The Federal rules restrict any use of the information to criminally investigate or prosecute any alcohol or drug abuse patient.[facility] HospitalIn the event this information is protected by the Federal Confidentiality of Alcohol and Drug Abuse Patient Records regulations: The Federal rules restrict any use of the information to criminally investigate or prosecute any alcohol or drug abuse patient.[facility] HospitalIn the event this information is protected by the Federal Confidentiality of Alcohol and Drug Abuse Patient Records regulations: The Federal rules restrict any use of the information to criminally investigate or prosecute any alcohol or drug abuse patient.[facility] HospitalIn the event this information is protected by the Federal Confidentiality of Alcohol and Drug Abuse Patient Records regulations: The Federal rules restrict any use of the information to criminally investigate or prosecute any alcohol or drug abuse patient.[facility] HospitalIn the event this information is protected by the Federal Confidentiality of Alcohol and Drug Abuse Patient Records regulations: The Federal rules restrict any use of the information to criminally investigate or prosecute any alcohol or drug abuse patient.[facility] HospitalIn the event this information is protected by the Federal Confidentiality of Alcohol and Drug Abuse Patient Records regulations: The Federal rules restrict any use of the information to criminally investigate or prosecute any alcohol or drug abuse patient.[facility] HospitalIn the event this information is protected by the Federal Confidentiality of Alcohol and Drug Abuse Patient Records regulations: The Federal rules restrict any use of the information to criminally investigate or prosecute any alcohol or drug abuse patient.[facility] HospitalIn the event this information is protected by the Federal Confidentiality of Alcohol and Drug Abuse Patient Records regulations: The Federal rules restrict any use of the information to criminally investigate or prosecute any alcohol or drug abuse patient.[facility] HospitalIn the event this information is protected by the Federal Confidentiality of Alcohol and Drug Abuse Patient Records regulations: The Federal rules restrict any use of the information to criminally investigate or prosecute any alcohol or drug abuse patient.[facility] HospitalIn the event this information is protected by the Federal Confidentiality of Alcohol and Drug Abuse Patient Records regulations: The Federal rules restrict any use of the information to criminally investigate or prosecute any alcohol or drug abuse patient.[facility] HospitalIn the event this information is protected by the Federal Confidentiality of Alcohol and Drug Abuse Patient Records regulations: The Federal rules restrict any use of the information to criminally investigate or prosecute any alcohol or drug abuse patient.[facility] HospitalIn the event this information is protected by the Federal Confidentiality of Alcohol and Drug Abuse Patient Records regulations: The Federal rules restrict any use of the information to criminally investigate or prosecute any alcohol or drug abuse patient.[facility] HospitalIn the event this information is protected by the Federal Confidentiality of Alcohol and Drug Abuse Patient Records regulations: The Federal rules restrict any use of the information to criminally investigate or prosecute any alcohol or drug abuse patient.[facility] HospitalIn the event this information is protected by the Federal Confidentiality of Alcohol and Drug Abuse Patient Records regulations: The Federal rules restrict any use of the information to criminally investigate or prosecute any alcohol or drug abuse patient.[facility] HospitalIn the event this information is protected by the Federal Confidentiality of Alcohol and Drug Abuse Patient Records regulations: The Federal rules restrict any use of the information to criminally investigate or prosecute any alcohol or drug abuse patient.[facility] HospitalIn the event this information is protected by the Federal Confidentiality of Alcohol and Drug Abuse Patient Records regulations: The Federal rules restrict any use of the information to criminally investigate or prosecute any alcohol or drug abuse patient.[facility] HospitalIn the event this information is protected by the Federal Confidentiality of Alcohol and Drug Abuse Patient Records regulations: The Federal rules restrict any use of the information to criminally investigate or prosecute any alcohol or drug abuse patient.[facility] HospitalIn the event this information is protected by the Federal Confidentiality of Alcohol and Drug Abuse Patient Records regulations: The Federal rules restrict any use of the information to criminally investigate or prosecute any alcohol or drug abuse patient.[facility] HospitalIn the event this information is protected by the Federal Confidentiality of Alcohol and Drug Abuse Patient Records regulations: The Federal rules restrict any use of the information to criminally investigate or prosecute any alcohol or drug abuse patient.[facility] HospitalIn the event this information is protected by the Federal Confidentiality of Alcohol and Drug Abuse Patient Records regulations: The Federal rules restrict any use of the information to criminally investigate or prosecute any alcohol or drug abuse patient.[facility] HospitalIn the event this information is protected by the Federal Confidentiality of Alcohol and Drug Abuse Patient Records regulations: The Federal rules restrict any use of the information to criminally investigate or prosecute any alcohol or drug abuse patient.[facility] HospitalIn the event this information is protected by the Federal Confidentiality of Alcohol and Drug Abuse Patient Records regulations: The Federal rules restrict any use of the information to criminally investigate or prosecute any alcohol or drug abuse patient.[facility] HospitalIn the event this information is protected by the Federal Confidentiality of Alcohol and Drug Abuse Patient Records regulations: The Federal rules restrict any use of the information to criminally investigate or prosecute any alcohol or drug abuse patient.[facility] HospitalIn the event this information is protected by the Federal Confidentiality of Alcohol and Drug Abuse Patient Records regulations: The Federal rules restrict any use of the information to criminally investigate or prosecute any alcohol or drug abuse patient.[facility] HospitalIn the event this information is protected by the Federal Confidentiality of Alcohol and Drug Abuse Patient Records regulations: The Federal rules restrict any use of the information to criminally investigate or prosecute any alcohol or drug abuse patient.[facility] HospitalIn the event this information is protected by the Federal Confidentiality of Alcohol and Drug Abuse Patient Records regulations: The Federal rules restrict any use of the information to criminally investigate or prosecute any alcohol or drug abuse patient.[facility] HospitalIn the event this information is protected by the Federal Confidentiality of Alcohol and Drug Abuse Patient Records regulations: The Federal rules restrict any use of the information to criminally investigate or prosecute any alcohol or drug abuse patient.[facility] HospitalIn the event this information is protected by the Federal Confidentiality of Alcohol and Drug Abuse Patient Records regulations: The Federal rules restrict any use of the information to criminally investigate or prosecute any alcohol or drug abuse patient.[facility] HospitalIn the event this information is protected by the Federal Confidentiality of Alcohol and Drug Abuse Patient Records regulations: The Federal rules restrict any use of the information to criminally investigate or prosecute any alcohol or drug abuse patient.[facility] HospitalIn the event this information is protected by the Federal Confidentiality of Alcohol and Drug Abuse Patient Records regulations: The Federal rules restrict any use of the information to criminally investigate or prosecute any alcohol or drug abuse patient.[facility] HospitalIn the event this information is protected by the Federal Confidentiality of Alcohol and Drug Abuse Patient Records regulations: The Federal rules restrict any use of the information to criminally investigate or prosecute any alcohol or drug abuse patient.[facility] HospitalIn the event this information is protected by the Federal Confidentiality of Alcohol and Drug Abuse Patient Records regulations: The Federal rules restrict any use of the information to criminally investigate or prosecute any alcohol or drug abuse patient.[facility] HospitalIn the event this information is protected by the Federal Confidentiality of Alcohol and Drug Abuse Patient Records regulations: The Federal rules restrict any use of the information to criminally investigate or prosecute any alcohol or drug abuse patient.[facility] HospitalIn the event this information is protected by the Federal Confidentiality of Alcohol and Drug Abuse Patient Records regulations: The Federal rules restrict any use of the information to criminally investigate or prosecute any alcohol or drug abuse patient.[facility] HospitalIn the event this information is protected by the Federal Confidentiality of Alcohol and Drug Abuse Patient Records regulations: The Federal rules restrict any use of the information to criminally investigate or prosecute any alcohol or drug abuse patient.[facility] HospitalIn the event this information is protected by the Federal Confidentiality of Alcohol and Drug Abuse Patient Records regulations: The Federal rules restrict any use of the information to criminally investigate or prosecute any alcohol or drug abuse patient.[facility] HospitalIn the event this information is protected by the Federal Confidentiality of Alcohol and Drug Abuse Patient Records regulations: The Federal rules restrict any use of the information to criminally investigate or prosecute any alcohol or drug abuse patient.[facility] HospitalIn the event this information is protected by the Federal Confidentiality of Alcohol and Drug Abuse Patient Records regulations: The Federal rules restrict any use of the information to criminally investigate or prosecute any alcohol or drug abuse patient.[facility] HospitalIn the event this information is protected by the Federal Confidentiality of Alcohol and Drug Abuse Patient Records regulations: The Federal rules restrict any use of the information to criminally investigate or prosecute any alcohol or drug abuse patient.[facility] HospitalIn the event this information is protected by the Federal Confidentiality of Alcohol and Drug Abuse Patient Records regulations: The Federal rules restrict any use of the information to criminally investigate or prosecute any alcohol or drug abuse patient.[facility] HospitalIn the event this information is protected by the Federal Confidentiality of Alcohol and Drug Abuse Patient Records regulations: The Federal rules restrict any use of the information to criminally investigate or prosecute any alcohol or drug abuse patient.[facility] HospitalIn the event this information is protected by the Federal Confidentiality of Alcohol and Drug Abuse Patient Records regulations: The Federal rules restrict any use of the information to criminally investigate or prosecute any alcohol or drug abuse patient.[facility] HospitalIn the event this information is protected by the Federal Confidentiality of Alcohol and Drug Abuse Patient Records regulations: The Federal rules restrict any use of the information to criminally investigate or prosecute any alcohol or drug abuse patient.[facility] HospitalIn the event this information is protected by the Federal Confidentiality of Alcohol and Drug Abuse Patient Records regulations: The Federal rules restrict any use of the information to criminally investigate or prosecute any alcohol or drug abuse patient.[facility] HospitalIn the event this information is protected by the Federal Confidentiality of Alcohol and Drug Abuse Patient Records regulations: The Federal rules restrict any use of the information to criminally investigate or prosecute any alcohol or drug abuse patient.[facility] HospitalIn the event this information is protected by the Federal Confidentiality of Alcohol and Drug Abuse Patient Records regulations: The Federal rules restrict any use of the information to criminally investigate or prosecute any alcohol or drug abuse patient.[facility] HospitalIn the event this information is protected by the Federal Confidentiality of Alcohol and Drug Abuse Patient Records regulations: The Federal rules restrict any use of the information to criminally investigate or prosecute any alcohol or drug abuse patient.[facility] HospitalIn the event this information is protected by the Federal Confidentiality of Alcohol and Drug Abuse Patient Records regulations: The Federal rules restrict any use of the information to criminally investigate or prosecute any alcohol or drug abuse patient.[facility] HospitalIn the event this information is protected by the Federal Confidentiality of Alcohol and Drug Abuse Patient Records regulations: The Federal rules restrict any use of the information to criminally investigate or prosecute any alcohol or drug abuse patient.[facility] HospitalIn the event this information is protected by the Federal Confidentiality of Alcohol and Drug Abuse Patient Records regulations: The Federal rules restrict any use of the information to criminally investigate or prosecute any alcohol or drug abuse patient.[facility] HospitalIn the event this information is protected by the Federal Confidentiality of Alcohol and Drug Abuse Patient Records regulations: The Federal rules restrict any use of the information to criminally investigate or prosecute any alcohol or drug abuse patient.[facility] HospitalIn the event this information is protected by the Federal Confidentiality of Alcohol and Drug Abuse Patient Records regulations: The Federal rules restrict any use of the information to criminally investigate or prosecute any alcohol or drug abuse patient.[facility] HospitalIn the event this information is protected by the Federal Confidentiality of Alcohol and Drug Abuse Patient Records regulations: The Federal rules restrict any use of the information to criminally investigate or prosecute any alcohol or drug abuse patient.[facility] HospitalIn the event this information is protected by the Federal Confidentiality of Alcohol and Drug Abuse Patient Records regulations: The Federal rules restrict any use of the information to criminally investigate or prosecute any alcohol or drug abuse patient.[facility] HospitalIn the event this information is protected by the Federal Confidentiality of Alcohol and Drug Abuse Patient Records regulations: The Federal rules restrict any use of the information to criminally investigate or prosecute any alcohol or drug abuse patient.[facility] HospitalIn the event this information is protected by the Federal Confidentiality of Alcohol and Drug Abuse Patient Records regulations: The Federal rules restrict any use of the information to criminally investigate or prosecute any alcohol or drug abuse patient.[facility] HospitalIn the event this information is protected by the Federal Confidentiality of Alcohol and Drug Abuse Patient Records regulations: The Federal rules restrict any use of the information to criminally investigate or prosecute any alcohol or drug abuse patient.[facility] HospitalIn the event this information is protected by the Federal Confidentiality of Alcohol and Drug Abuse Patient Records regulations: The Federal rules restrict any use of the information to criminally investigate or prosecute any alcohol or drug abuse patient.[facility] HospitalIn the event this information is protected by the Federal Confidentiality of Alcohol and Drug Abuse Patient Records regulations: The Federal rules restrict any use of the information to criminally investigate or prosecute any alcohol or drug abuse patient.[facility] HospitalIn the event this information is protected by the Federal Confidentiality of Alcohol and Drug Abuse Patient Records regulations: The Federal rules restrict any use of the information to criminally investigate or prosecute any alcohol or drug abuse patient.[facility] HospitalIn the event this information is protected by the Federal Confidentiality of Alcohol and Drug Abuse Patient Records regulations: The Federal rules restrict any use of the information to criminally investigate or prosecute any alcohol or drug abuse patient.[facility] HospitalIn the event this information is protected by the Federal Confidentiality of Alcohol and Drug Abuse Patient Records regulations: The Federal rules restrict any use of the information to criminally investigate or prosecute any alcohol or drug abuse patient.[facility] HospitalIn the event this information is protected by the Federal Confidentiality of Alcohol and Drug Abuse Patient Records regulations: The Federal rules restrict any use of the information to criminally investigate or prosecute any alcohol or drug abuse patient.[facility] HospitalIn the event this information is protected by the Federal Confidentiality of Alcohol and Drug Abuse Patient Records regulations: The Federal rules restrict any use of the information to criminally investigate or prosecute any alcohol or drug abuse patient.[facility] HospitalIn the event this information is protected by the Federal Confidentiality of Alcohol and Drug Abuse Patient Records regulations: The Federal rules restrict any use of the information to criminally investigate or prosecute any alcohol or drug abuse patient.[facility] HospitalIn the event this information is protected by the Federal Confidentiality of Alcohol and Drug Abuse Patient Records regulations: The Federal rules restrict any use of the information to criminally investigate or prosecute any alcohol or drug abuse patient.[facility] HospitalIn the event this information is protected by the Federal Confidentiality of Alcohol and Drug Abuse Patient Records regulations: The Federal rules restrict any use of the information to criminally investigate or prosecute any alcohol or drug abuse patient.[facility] HospitalIn the event this information is protected by the Federal Confidentiality of Alcohol and Drug Abuse Patient Records regulations: The Federal rules restrict any use of the information to criminally investigate or prosecute any alcohol or drug abuse patient.[facility] HospitalIn the event this information is protected by the Federal Confidentiality of Alcohol and Drug Abuse Patient Records regulations: The Federal rules restrict any use of the information to criminally investigate or prosecute any alcohol or drug abuse patient.[facility] HospitalIn the event this information is protected by the Federal Confidentiality of Alcohol and Drug Abuse Patient Records regulations: The Federal rules restrict any use of the information to criminally investigate or prosecute any alcohol or drug abuse patient.[facility] HospitalIn the event this information is protected by the Federal Confidentiality of Alcohol and Drug Abuse Patient Records regulations: The Federal rules restrict any use of the information to criminally investigate or prosecute any alcohol or drug abuse patient.[facility] HospitalIn the event this information is protected by the Federal Confidentiality of Alcohol and Drug Abuse Patient Records regulations: The Federal rules restrict any use of the information to criminally investigate or prosecute any alcohol or drug abuse patient.[facility] HospitalIn the event this information is protected by the Federal Confidentiality of Alcohol and Drug Abuse Patient Records regulations: The Federal rules restrict any use of the information to criminally investigate or prosecute any alcohol or drug abuse patient.[facility] HospitalIn the event this information is protected by the Federal Confidentiality of Alcohol and Drug Abuse Patient Records regulations: The Federal rules restrict any use of the information to criminally investigate or prosecute any alcohol or drug abuse patient.[facility] HospitalIn the event this information is protected by the Federal Confidentiality of Alcohol and Drug Abuse Patient Records regulations: The Federal rules restrict any use of the information to criminally investigate or prosecute any alcohol or drug abuse patient.[facility] HospitalIn the event this information is protected by the Federal Confidentiality of Alcohol and Drug Abuse Patient Records regulations: The Federal rules restrict any use of the information to criminally investigate or prosecute any alcohol or drug abuse patient.[facility] HospitalIn the event this information is protected by the Federal Confidentiality of Alcohol and Drug Abuse Patient Records regulations: The Federal rules restrict any use of the information to criminally investigate or prosecute any alcohol or drug abuse patient.[facility] HospitalIn the event this information is protected by the Federal Confidentiality of Alcohol and Drug Abuse Patient Records regulations: The Federal rules restrict any use of the information to criminally investigate or prosecute any alcohol or drug abuse patient.[facility] HospitalIn the event this information is protected by the Federal Confidentiality of Alcohol and Drug Abuse Patient Records regulations: The Federal rules restrict any use of the information to criminally investigate or prosecute any alcohol or drug abuse patient.[facility] HospitalIn the event this information is protected by the Federal Confidentiality of Alcohol and Drug Abuse Patient Records regulations: The Federal rules restrict any use of the information to criminally investigate or prosecute any alcohol or drug abuse patient.[facility] HospitalIn the event this information is protected by the Federal Confidentiality of Alcohol and Drug Abuse Patient Records regulations: The Federal rules restrict any use of the information to criminally investigate or prosecute any alcohol or drug abuse patient.[facility] Care Teams (unrecognized sec tion and content) Yard Switcher Relationship Specialty Start Date End Date Preet Farrar, DO [address] [facility] [place] [address] PCP - General Family Practice 11/16/13 Yard Switcher Relationship Specialty Start Date End Date Preet Farrar, DO [address] [place] [address] PCP - General Family Practice 11/16/13 Yard Switcher Relationship Specialty Start Date End Date Preet Farrar, DO [address] [place] [address] PCP - General Family Practice 11/16/13 Yard Switcher Relationship Specialty Start Date End Date Preet Farrar, DO [address] [place] [address] PCP - General Family Practice 11/16/13 Yard Switcher Relationship Specialty Start Date End Date Preet Farrar, DO [address] [place] [address] PCP - General Family Practice 11/16/13 Yard Switcher Relationship Specialty Start Date End Date Preet Farrar, DO [address] [place] [address] PCP - General Family Practice 11/16/13 Yard Switcher Relationship Specialty Start Date End Date Preet Farrar DO [address] [place] [address] PCP - General Family Practice 11/16/13 Yard Switcher Relationship Specialty Start Date End Date Preet Farrar, DO [address] [place] [address] PCP - General Family Practice 11/16/13 Yard Switcher Relationship Specialty Start Date End Date Preet Farrar, DO [address] [place] [address] PCP - General Family Practice 11/16/13 Yard Switcher Relationship Specialty Start Date End Date Preet Farrar, DO [address] [place] [address] PCP - General Family Practice 11/16/13 Yard Switcher Relationship Specialty Start Date End Date Preet Farrar, DO [address] [place] [address] PCP - General Family Practice 11/16/13 Yard Switcher Relationship Specialty Start Date End Date Preet Farrar, DO [address] [place] [address] PCP - General Family Practice 11/16/13 Yard Switcher Relationship Specialty Start Date End Date Preet Farrar, DO [address] [place] [address] PCP - General Family Practice 11/16/13 Yard Switcher Relationship Specialty Start Date End Date Preet Farrar, DO [address] [place] [address] PCP - General Family Practice 11/16/13 Yard Switcher Relationship Specialty Start Date End Date Preet Farrar, DO [address] [place] [address] PCP - General Family Practice 11/16/13 Yard Switcher Relationship Specialty Start Date End Date Preet Farrar, DO [address] [place] [address] PCP - General Family Medicine 11/16/13 Yard Switcher Relationship Specialty Start Date End Date Preet Farrar, DO [address] [place] [address] PCP - General Family Medicine 11/16/13 Yard Switcher Relationship Specialty Start Date End Date Preet Farrar, DO [address] [place] [address] PCP - General Family Medicine 11/16/13 Yard Switcher Relationship Specialty Start Date End Date Preet Farrar, DO [address] [facility] [place] [address] PCP - General Family Medicine 11/16/13 Team [...] Dr. Hermes Block MD Other Provider Active Yard Switcher Relationship Specialty Start Date End Date Preet Farrar, DO [address] [place] [address] PCP - General Family Medicine 11/16/13 Team Status: Inactive Member Role Status Dates Dr. Preet Farrar DO Primary Care Provider, Attend ing Provider Active Dr. Carmen Dallas MD Referring Provider Active Yard Switcher Relationship Specialty Start Date End Date Preet Farrar, DO [address] [place] [address] PCP - General Family Medicine 11/16/13 Yard Switcher Relationship Specialty Start Date End Date Preet Farrar DO [address] [place] [address] PCP - General Family Medicine 11/16/13 Yard Switcher Relationship Specialty Start Date End Date Preet Farrar, DO [address] [place] [address] PCP - General Family Medicine 11/16/13 Yard Switcher Relationship Specialty Start Date End Date Preet Farrar DO [address] [place] [address] PCP - General Family Medicine 11/16/13 Yard Switcher Relationship Specialty Start Date End Date Preet Farrar DO [address] [place] [address] PCP - General Family Medicine 11/16/13 Team [...] Stapleton MD Attending Provider, Referring Provider Active Yard Switcher Relationship Specialty Start Date End Date Preet Farrar DO [address] [place] [address] PCP - General Family Medicine 11/16/13 Yard Switcher Relationship Specialty Start Date End Date Preet Farrar DO [address] [place] [address] PCP - General Family Medicine 11/16/13 Yard Switcher Relationship Specialty Start Date End Date Preet Farrar DO [address] [place] [address] PCP - General Family Medicine 11/16/13 Team Status: Active Member Role Status Dates Dr. Preet Farrar DO Primary Care Provider Active Dr. Julien Reyna MD Attending Provider Active Dr. Kenton Stapleton MD Referring Provider Active Team Status: Inactive Member Role Status Dates Dr. Preet Farrar DO Primary Care Provider Active Dr. Sean Bradley MD Attending Provider, Referring Provider Active Yard Switcher Relationship Specialty Start Date End Date Preet Farrar DO [address] [place] [address] PCP - General Family Medicine 11/16/13 Yard Switcher Relationship Specialty Start Date End Date Preet Farrar DO [address] [place] [address] PCP - General Family Medicine 11/16/13 Yard Switcher Relationship Specialty Start Date End Date Preet Farrar DO [address] [place] [address] PCP - General Family Medicine 11/16/13 Yard Switcher Relationship Specialty Start Date End Date Preet Farrar DO [address] [place] [address] PCP - General Family Medicine 11/16/13 Team [...] Abisai Fuentes , DO Attending Provider Active Yard Switcher Relationship Specialty Start Date End Date Preet Farrar DO [address] [facility] [place] [address] PCP - General Family Medicine 11/16/13 Yard Switcher Relationship Specialty Start Date End Date Preet Farrar DO [address] [place] [address] PCP - General Family Medicine 11/16/13 Yard Switcher Relationship Specialty Start Date End Date Preet Farrar DO [address] [place] [address] PCP - General Family Medicine 11/16/13 Yard Switcher Relationship Specialty Start Date End Date Preet Farrar DO [address] [place] [address] PCP - General Family Medicine 11/16/13 Yard Switcher Relationship Specialty Start Date End Date Preet Farrar DO [address] [place] [address] PCP - General Family Medicine 11/16/13 Yard Switcher Relationship Specialty Start Date End Date Preet Farrar DO [address] [place] [address] PCP - General Family Medicine 11/16/13 Yard Switcher Relationship Specialty Start Date End Date Preet Farrar, [address] [place] [address] PCP - General Family Medicine 11/16/13 Yard Switcher Relationship Specialty Start Date End Date Preet Farrar DO [address] [place] [address] PCP - General Family Medicine 11/16/13 Yard Switcher Relationship Specialty Start Date End Date Preet Farrar, [address] [place] [address] PCP - General Family Medicine 11/16/13 Yard Switcher Relationship Specialty Start Date End Date Preet Farrar DO [address] [place] [address] PCP - General Family Medicine 11/16/13 Yard Switcher Relationship Specialty Start Date End Date Preet Farrar, [address] [place] [address] PCP - General Family Medicine 11/16/13 Yard Switcher Relationship Specialty Start Date End Date Preet Farrar, [address] [place] [address] PCP - General Family Medicine 11/16/13 Yard Switcher Relationship Specialty Start Date End Date Preet Farrar DO [address] [place] [address] PCP - General Family Medicine 11/16/13 Yard Switcher Relationship Specialty Start Date End Date Preet Farrar, [address] [place] [address] PCP - General Family Medicine 11/16/13 Yard Switcher Relationship Specialty Start Date End Date Preet Farrar, [address] [place] [address] PCP - General Family Medicine 11/16/13 Yard Switcher Relationship Specialty Start Date End Date Preet Farrar, [address] [place] [address] PCP - General Family Medicine 11/16/13 Yard Switcher Relationship Specialty Start Date End Date Preet Farrar DO [address] [place] [address] PCP - General Family Medicine 11/16/13 Yard Switcher Relationship Specialty Start Date End Date Preet Farrar DO [address] [place] [address] PCP - General Family Medicine 11/16/13 Yard Switcher Relationship Specialty Start Date End Date Preet Farrar DO [address] [place] [address] PCP - General Family Medicine 11/16/13 Yard Switcher Relationship Specialty Start Date End Date Preet Farrar DO [address] [place] [address] PCP - General Family Medicine 11/16/13 Yard Switcher Relationship Specialty Start Date End Date Preet Farrar DO [address] [place] [address] PCP - General Family Medicine 11/16/13 Yard Switcher Relationship Specialty Start Date End Date Preet Farrar DO [address] [place] [address] PCP - General Family Medicine 11/16/13 Jacqueline Candelario, CONTINUOUS IMPROVEMENT SPECIALIST.DIRECTOR STATISTICAL PROGRAMMING [address] [place] [address] [facility] 09/04/24 Kathryn Rivero, CONTINUOUS IMPROVEMENT SPECIALIST.DIRECTOR STATISTICAL PROGRAMMING [address] [place] [address] [facility] 09/04/24 Yard Switcher Relationship Specialty Start Date End Date Preet Farrar DO [address] [place] [address] PCP - General Family Medicine 11/16/13 Jacqueline Candelario, CONTINUOUS IMPROVEMENT SPECIALIST.DIRECTOR STATISTICAL PROGRAMMING [address] [place] [address] [facility] 09/04/24 Kathryn Rivero, CONTINUOUS IMPROVEMENT SPECIALIST.DIRECTOR STATISTICAL PROGRAMMING [address] [place] [address] [facility] Yard Switcher Relationship Specialty Start Date End Date Preet Farrar DO [address] [place] [address] PCP - General Family Medicine 11/16/13 Jacqueline Candelario, CONTINUOUS IMPROVEMENT SPECIALIST.DIRECTOR STATISTICAL PROGRAMMING [address] [place] [address] [facility] 09/04/24 Kathryn Rivero, CONTINUOUS IMPROVEMENT SPECIALIST.DIRECTOR STATISTICAL PROGRAMMING [address] [place] [address] [facility] 09/04/24 Yard Switcher Relationship Specialty Start Date End Date Preet Farrar DO [address] [place] [address] PCP - General Family Medicine 11/16/13 Jacqueline Candelario, CONTINUOUS IMPROVEMENT SPECIALIST.DIRECTOR STATISTICAL PROGRAMMING [address] [place] [address] [facility] 09[facility]04/24 [facility]ryn, CONTINUOUS IMPROVEMENT SPECIALIST.DIRECTOR STATISTICAL PROGRAMMING [address] [place] [address] [facility] 09/04/24 Yard Switcher Relationship Specialty Start Date End Date Preet Farrar DO [address] [place] [address] PCP - General Family Medicine 11/16/13 Jacqueline Candelario, CONTINUOUS IMPROVEMENT SPECIALIST.DIRECTOR STATISTICAL PROGRAMMING [address] [place] [address] [facility] 09/04/24 MartirKathryn, CONTINUOUS IMPROVEMENT SPECIALIST.DIRECTOR STATISTICAL PROGRAMMING [address] [place] [address] [facility] 09/04/24 Yard Switcher Relationship Specialty Start Date End Date Preet Farrar DO [address] [place] [address] PCP - General Family Medicine 11/16/13 Jacqueline Candelario, CONTINUOUS IMPROVEMENT SPECIALIST.DIRECTOR STATISTICAL PROGRAMMING [address] [place] [address] [facility] 09/04/24 Kathryn Rivero, CONTINUOUS IMPROVEMENT SPECIALIST.DIRECTOR STATISTICAL PROGRAMMING [address] [place] [address] [facility] 09/04/24 Yard Switcher Relationship Specialty Start Date End Date Preet Farrar DO [address] [place] [address] PCP - General Family Medicine 11/16/13 Jacqueline Candelario, CONTINUOUS IMPROVEMENT SPECIALIST.DIRECTOR STATISTICAL PROGRAMMING [address] [place] [address] [facility] 09/04/24 MartirKathryn, CONTINUOUS IMPROVEMENT SPECIALIST.DIRECTOR STATISTICAL PROGRAMMING [address] [place] [address] [facility] 09/04/24 Yard Switcher Relationship Specialty Start Date End Date Preet Farrar DO [address] [place] [address] PCP - General Family Medicine 11/16/13 Jacqueline Candelario, CONTINUOUS IMPROVEMENT SPECIALIST.DIRECTOR STATISTICAL PROGRAMMING [address] [place] [address] [facility] 09/04/24 MartirKathryn, CONTINUOUS IMPROVEMENT SPECIALIST.DIRECTOR STATISTICAL PROGRAMMING [address] [place] [address] [facility] 09/04/24 Yard Switcher Relationship Specialty Start Date End Date Preet Farrar DO [address] [place] [address] PCP - General Family Medicine 11/16/13 Jacqueline Candelario, CONTINUOUS IMPROVEMENT SPECIALIST.DIRECTOR STATISTICAL PROGRAMMING [address] [place] [address] [employer] 09/04/24 [facility], CONTINUOUS IMPROVEMENT SPECIALIST.DIRECTOR STATISTICAL PROGRAMMING [address] [place] [address] [employer] [facility] 09/04/24 Yard Switcher Relationship Specialty Start Date End Date Preet Farrar DO [address] [place] [address] PCP - General Family Medicine 11/16/13 MartirKathryn, CONTINUOUS IMPROVEMENT SPECIALIST.DIRECTOR STATISTICAL PROGRAMMING [address] [place] [address] [employer] [facility] 09/04/24 Yard Switcher Relationship Specialty Start Date End Date Preet Farrar DO [address] [place] [address] PCP - General Family Medicine 11/16/13 MartirKathryn, CONTINUOUS IMPROVEMENT SPECIALIST.DIRECTOR STATISTICAL PROGRAMMING [address] [place] [address] [employer] [facility] 09/04/24 Team Status: Active Member Role [...] Provider Active Sta rt: December 28, 2024 Yard Switcher Relationship Specialty Start Date End Date Preet Farrar DO [address] [facility] [place] [address] PCP - General Family Medicine 11/16/13 [facility] CenterJenniferah, CONTINUOUS IMPROVEMENT SPECIALIST.DIRECTOR STATISTICAL PROGRAMMING [address] [facility] [place] [address] [facility] 09/04/24 Yard Switcher Relationship Specialty Start Date End Date Preet Farrar DO [address] [facility] [place] [address] PCP - General Family Medicine 11/16/13 [facility], CONTINUOUS IMPROVEMENT SPECIALIST.DIRECTOR STATISTICAL PROGRAMMING [address] [facility] [place] [address] [facility] 09/04/24 Yard Switcher Relationship Specialty Start Date End Date Preet Farrar DO [address] [facility] [place] [address] PCP - General Family Medicine 11/16/13 [facility] CenterK[facility]ryn, CONTINUOUS IMPROVEMENT SPECIALIST.DIRECTOR STATISTICAL PROGRAMMING [address] [place] [address] [employer] [facility] 09/04/24 Yard Switcher Relationship Specialty Start Date End Date Preet Farrar DO [address] [place] [address] PCP - General Family Medicine 11/16/13 MartirKathryn, CONTINUOUS IMPROVEMENT SPECIALIST.DIRECTOR STATISTICAL PROGRAMMING [address] [place] [address] [facility] 09/04/24 Team Status: Active Member Role Status [...] February 16, 2025 End: February 16, 2025 Yard Switcher Relationship Specialty Start Date End Date Preet Farrar DO [address] [facility] [place] [address] PCP - General Family Medicine 11/16/13 Kathryn Rivero, CONTINUOUS IMPROVEMENT SPECIALIST.DIRECTOR STATISTICAL PROGRAMMING [address] [facility] [place] [address] [facility] 09/04/24 Liliana Bennett, CONTINUOUS IMPROVEMENT SPECIALIST.DIRECTOR STATISTICAL PROGRAMMING [address] [place] [address] [facility] 03/13/25 Yard Switcher Relationship Specialty Start Date End Date Preet Farrar DO [address] [facility] [place] [address] PCP - General Family Medicine 11/16/13 Kathryn Rivero, CONTINUOUS IMPROVEMENT SPECIALIST.DIRECTOR STATISTICAL PROGRAMMING [address] [facility] [place] [address] [facility] 09/04/24 Liliana Bennett, CONTINUOUS IMPROVEMENT SPECIALIST.DIRECTOR STATISTICAL PROGRAMMING [address] [facility] [address] [facility] 03/13/25 Yard Switcher Relationship Specialty Start Date End Date Preet Farrar DO [address] [place] [address] PCP - General Family Medicine 11/16/13 Kathryn Rivero, CONTINUOUS IMPROVEMENT SPECIALIST.DIRECTOR STATISTICAL PROGRAMMING [address] [place] [address] [facility] 09/04/24 Liliana Bennett, CONTINUOUS IMPROVEMENT SPECIALIST.DIRECTOR STATISTICAL PROGRAMMING [address] [place] [address] [facility] 03/13/25 Yard Switcher Relationship Specialty Start Date End Date Preet Farrar DO [address] [place] [address] PCP - General Family Medicine 11/16/13 MartirKathryn, CONTINUOUS IMPROVEMENT SPECIALIST.DIRECTOR STATISTICAL PROGRAMMING [address] [place] [address] [facility] 09/04/24 Liliana Bennett, CONTINUOUS IMPROVEMENT SPECIALIST.DIRECTOR STATISTICAL PROGRAMMING [address] [place] [address] [facility] 03/13/25 Yard Switcher Relationship Specialty Start Date End Date Preet Farrar DO [address] [place] [address] PCP - General Family Medicine 11/16/13 MartirKathryn, CONTINUOUS IMPROVEMENT SPECIALIST.DIRECTOR STATISTICAL PROGRAMMING [address] [place] [address] [facility] 09/04/24 Liliana Bennett, CONTINUOUS IMPROVEMENT SPECIALIST.DIRECTOR STATISTICAL PROGRAMMING [address] [place] [address] [facility] 03/13/25 Yard Switcher Relationship Specialty Start Date End Date Preet Farrar DO [address] [place] [address] PCP - General Family Medicine 11/16/13 Kathryn Rivero, CONTINUOUS IMPROVEMENT SPECIALIST.DIRECTOR STATISTICAL PROGRAMMING [address] [place] [address] [facility] 09/04/24 Liliana Bennettan, CONTINUOUS IMPROVEMENT SPECIALIST.DIRECTOR STATISTICAL PROGRAMMING [address] [place], [place] [address] [facility] 03/13/25 Team Status: Active Member Role/Relationship Status [...] April 15, 2025 End: April 15, 2025 Yard Switcher Relationship Specialty Start Date End Date Preet Farrar DO [address] [place], [place] [address] PCP - General Family Medicine 11/16/13 Kathryn Rivero, CONTINUOUS IMPROVEMENT SPECIALIST.DIRECTOR STATISTICAL PROGRAMMING [address] [place], [place] [id number] [facility] 09/04/24 Liliana Bennett, CONTINUOUS IMPROVEMENT SPECIALIST.DIRECTOR STATISTICAL PROGRAMMING [address] [place], [place] [id number] [facility] 03/13/25 Yard Switcher Relationship Specialty Start Date End Date Preet Farrar DO [address] [place] [address] PCP - General Family Medicine 11/16/13 MartirKathryn, CONTINUOUS IMPROVEMENT SPECIALIST.DIRECTOR STATISTICAL PROGRAMMING [address] [place] [address] [facility] 09/04/24 Liliana Bennett, CONTINUOUS IMPROVEMENT SPECIALIST.DIRECTOR STATISTICAL PROGRAMMING [address] [facility] [place] [address] [facility] 03/13/25 Yard Switcher Relationship Specialty Start Date End Date Preet Farrar DO [address] [place] [address] PCP - General Family Medicine 11/16/13 MartirKathryn, CONTINUOUS IMPROVEMENT SPECIALIST.DIRECTOR STATISTICAL PROGRAMMING [address] [place] [address] [facility] 09/04/24 Liliana Bennett, CONTINUOUS IMPROVEMENT SPECIALIST.DIRECTOR STATISTICAL PROGRAMMING [address] [place] [address] [facility] 03/13/25 Yard Switcher Relationship Specialty Start Date End Date Preet Farrar DO [address] [place] [address] PCP - General Family Medicine 11/16/13 Kathryn Rivero, CONTINUOUS IMPROVEMENT SPECIALIST.DIRECTOR STATISTICAL PROGRAMMING [address] [place] [address] [facility] 09/04/24 Liliana Bennett, CONTINUOUS IMPROVEMENT SPECIALIST.DIRECTOR STATISTICAL PROGRAMMING [address] [place] [address] [facility] 03/13/25 Team Status: Inactive Member Role/Relationship Status Dates [...] April 15, 2025 Dr. Berry Waldrop MD Attending Provider Active S tart: April 15, 2025 End: April 15, 2025 Dr. Berry Waldrop MD Emergency Provider Active S tart: April 15, 2025 End: April 15, 2025 Team Status: Inactive Member Role/Relationship Status Dates Dr. Preet Farrar DO Primary Care Provider Active Start: May 25, 2025 End: May 25, 2025 Dr. Berry Waldrop MD Emergency Provider Active S tart: May 25, 2025 End: May 25, 2025 Yard Switcher Relationship Specialty Start Date End Date Preet Farrar DO [address] [place], [place] [address] PCP - General Family Medicine 11/16/13 MartirKathryn, CONTINUOUS IMPROVEMENT SPECIALIST.DIRECTOR STATISTICAL PROGRAMMING [address] [place], [place] [address] [facility] 09/04/24 Liliana Bennett, CONTINUOUS IMPROVEMENT SPECIALIST.DIRECTOR STATISTICAL PROGRAMMING [address] [place], [place] [address] [facility] 03/13/25 Yard Switcher Relationship Specialty Start Date End Date Preet Farrar DO [address] [place] [address] PCP - General Family Medicine 11/16/13 MartirKathryn, CONTINUOUS IMPROVEMENT SPECIALIST.DIRECTOR STATISTICAL PROGRAMMING [address] [place] [address] [facility] 09/04/24 Liliana Bennett, CONTINUOUS IMPROVEMENT SPECIALIST.DIRECTOR STATISTICAL PROGRAMMING [address] [place], [place] [address] [facility] 03/13/25 Team Status: Active Member Role/Relationship Status Dates Dr. rPeet Farrar DO Primary care physician Active Team Status: Inactive Member Role/Relationship Status Dates Dr. Preet Farrar DO Primary care physician Active Start: April 15, 2025 End: April 15, 2025 Dr. Berry Waldrop MD Attending physician Active Start: April 15, 2025 End: April 15, 2025 Dr. Berry Waldrop MD Emergency Department Physician Ac tive Start: April 15, 2025 End: April 15, 2025 Team Status: Inactive Member Role/Relationship Status Dates Dr. Preet Farrar DO Primary care physician Active Start: May 25, 2025 End: May 25, 2025 Dr. Berry Waldrop MD Attending physician Active Start: May 25, 2025 End: May 25, 2025 Dr. Berry Waldrop MD Emergency Departmen t Physician Active Start: May 25, 2025 End: May 25, 2025 Team Status: Active Member Role/Relationship Status Dates Dr. Preet Farrar DO Primary care physician Active Start: May 26, 2025 Dr. Berry Waldrop MD Emergency Departmen t Physician Active Start: May 26, 2025 Dr. Anushka Isaac MD Attending physician Active Start: May 26, 2025 Team Status: Inactive Member Role/Relationship Status Dates Dr. Preet Farrar DO Primary care physician Active Start: June 21, 2025 End: June 21, 2025 Dr. Preet Farrar DO Referring Provider Active Start: June 21, 2025 End: June 21, 2025 Dr. Anushka Isaac MD Attending physician Active Start: June 21, 2025 End: June 21, 2025 Goals (unrecognized section and content) Goals may [...] BE BASED ON THE PRIMARY CLINICAL RECORDS. [employer] [facility]. provides no warranty or guarantee of the accuracy or completeness of information in this document.
--- NOTE | 2025-07-13 17:46 | CON.PCM.CA_ITS ---
Assessment & Plan Assessment/Plan (1) Aortic valve stenosis with insufficiency: PLAN: She does have mild to moderate aortic stenosis which appears to be stable at this time I do not think that this is contributing to her current condition. Her peak gradient is 39 mmHg and a mean gradient of 19 mmHg. (2) Dyslipidemia: PLAN: She has a history of hyperlipidemia for which she remains on a statin (3) Elevated troponin: PLAN: She does have elevated troponin with epigastric discomfort and nausea. It is possible that this is an anginal equivalent and my recommendation at this time will be to start her on heparin and then consider her for a left heart catheterization. I have discussed the above with her she understands and agrees to proceed. HPI Consult Data Date of Consult: 07/13/25 HPI Narrative HPI Narrative: LEIDY AMADO, is a 69 F who presents to the emergency room with nausea and vomiting which started this morning. She does have a history of hypertension, diabetes mellitus, previous carotid disease, and moderate renal artery stenosis. She also has a history of a stress test in September of this year which did not demonstrate any significant ischemia and an echocardiogram demonstrated preserved ejection fraction with mild to moderate aortic stenosis. In the emergency room she had complained of some chest discomfort as well as nausea and vomiting her blood sugars were noted to be elevated she had a troponin test performed which was noted to be elevating. Cardiology was called for further recommendation at this particular time she does not appear to have any chest discomfort when she was seen. She says that she usually gets nauseated when her blood sugar goes elevated she has been compliant with her medications. Her electrocardiogram demonstrates an ectopic atrial rhythm. [ ] FORMERLY [facility], [facility] Medical History (Updated 07/13/25 @ 17:[address] Jamel Gray MD) Elevated troponin Cardiology follow-up encounter History of stress test First degree AV block Simple endometrial hyperplasia without atypia Wears glasses Post-menopausal Marijuana use Insulin dependent diabetes mellitus Thyroid disease Fatty liver High cholesterol Ulcerative colitis GERD (gastroesophageal reflux disease) Leg cramps History of echocardiogram Hypertension PONV (postoperative nausea and vomiting) Encounter for screening examination for sexually transmitted disease HPV test positive Pelvic pain Thickened endometrium Anxiety Stroke/cerebrovascular accident (11/02/22) Former tobacco use Near syncope Elevated troponin Abnormal EKG Hyponatremia Prolonged QT interval Polyneuropathy Occlusion of left internal carotid artery Ischemic stroke 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 Irritable bowel syndrome Celiac disease Ulcerative colitis Muscle spasm Hypothyroidism Hypertension Vitamin D deficiency Diabetes mellitus Lumbar spinal stenosis Lumbar disc herniation with radiculopathy Ambulatory dysfunction Intractable back pain Home Medications ?Medication ?Instructions ?Recorded ?Last Taken ?Type ergocalciferol (vitamin D2) 1,250 50,000 unit PO MOFR SUPPLEMENT 12/18/20 07/10/25 History mcg (50,000 unit) capsule thyroid (pork) 120 mg tablet 120 tablet PO DAILY THYRO ID 12/18/20 07/13/25 History clopidogrel 75 mg tablet 75 mg PO DAILY BLOOD THINNER #30 11/04/22 07/13/25 Rx tabs carvedilol 6.25 mg tablet 6.25 mg PO BID blood pressur e 03/05/24 07/13/25 History pantoprazole 40 mg tablet,delayed 40 mg PO DAILY gerd #30 tabs 05/22/24 07/13/25 Rx release thyroid (pork) 30 mg tablet 30 mg PO MOWEFR thyroid 07/12/25 History (Bonifay Thyroid) insulin glargine 100 unit/mL (3 25 unit subcut DAILY b lood sugar 12/12/24 07/12/25 History mL) subcutaneous pen (Lantus Solostar U-100 Insulin) spironolactone 25 mg tablet 25 mg PO BID heart 5 07/13/25 History elderberry fruit 200 mg capsule 2,000 mg PO DAILY supp lement 12/13/24 07/13/25 History atorvastatin 40 mg tablet 40 mg PO QHS cholesterol 07/13/25 History dulaglutide 3 mg/0.5 mL 3 mg subcut QWEEK blood suga r 07/13/25 07/07/25 History subcutaneous pen injector (Trulicity) Allergy/AdvReac Type Severity Reaction Status Date / Time metformin Allergy Severe Hives Verified 07/13/25 10:49 prednisone Allergy Intermediate Itching Verified 07/13/25 10:49 aspirin Allergy mouth Verified 07/13/25 10:49 swelling gluten Allergy Abd Verified 07/13/25 10:49 cramps/diarrhea ibuprofen Allergy mouth Verified 07/13/25 10:49 swelling Sulfa (Sulfonamide Allergy pt can't Verified 07/13/25 10:49 Antibiotics) remember Family History Mother Heart disease Alzheimers disease Father Heart disease Hypertension CAD (coronary artery disease) Myocardial infarction Thyroid disorder Diabetes Sister Cancer Surgical History History of total vaginal hysterectomy (TVH) History of esophagogastroduodenoscopy (EGD) Hx of colonoscopy History of hysteroscopy History of back surgery (~2019) Hx of umbilical hernia repair S/P tubal ligation S/P cholecystectomy S/P tonsillectomy and adenoidectomy History of lumbar fusion History of lumbar discectomy Social History adopted: No household members: none number of children: 3 sexually active: Yes Smoking Status: Former smoker alcohol intake: never substance use type: marijuana and other details: Medical cannabis, usually daily. seatbelt use: always do you feel safe at home: Yes ROS Constitutional Constitutional: Denies fever(s) or weight loss Eyes Eyes: Reports systems reviewed and no addt'l complaints, except as documented ENT HEENT: Reports systems reviewed and no addt'l complaints, except as documented Cardiovascular Cardiovascular: Denies chest pain at rest, chest pain with activity, dyspnea at rest, dyspnea on exertion, edema, palpitations or paroxysmal nocturnal dyspnea Respiratory/Chest Respiratory/Chest: Denies dyspnea on exertion, productive cough, shortness of breath at rest or shortness of breath with exertion Gastrointestinal Gastrointestinal: Denies change in bowel habits, nausea, vomiting or weight changes Genitourinary Genitourinary: Denies difficulty urinating Musculoskeletal Musculoskeletal: Denies joint stiffness or muscle weakness Integumentary Integumentary: Denies lesions Neurologic Neurologic: Denies dizziness or syncope Psychiatric Psychiatric: Denies anxiety Endocrine Endocrinology: Denies excessive sweating or fatigue Hematologic/Lymphatic Hematologic/Lymphatic: Denies anemia Allergic/Immunologic Allergic/Immunologic: Denies seasonal rhinorrhea Physical Exam Const alert and oriented x3 General Appearance: other HEENT normocephalic Eyes PERRL Neck Carotids: normal carotid upstroke Chest inspection of chest normal Cardio regular rate and regular rhythm Rhythm: regular rhythm Heart Sounds: murmur systolic GI normal to inspection, nondistended, normoactive bowel sounds Extremity normal to inspection Skin no rashes or lesions noted Psych mental status grossly normal Objective Data Vital Signs: Vital Signs Temp Pulse Resp BP Pulse Ox O2 Del Method 98.8 F 102 H 16 160/81 H 95 Room Air 07/13/25 17:35 07/13/25 17:35 07/13/25 17:35 07/13/25 17:35 07/13/25 17:35 07/13/25 17:35 Oxygen Delivery Method Room Air Weight: 183 lb 10.321 oz Body Mass Index (BMI) 35.9 Intake & Output: Intake and Output for Last 24 Hours 07/11/25 07/12/25 07/13/25 23:59 23:59 23:59 Intake Total 500 / 500 Balance 500 / 500 Lab / Micro Data 07/13/25 11:50 07/13/25 11:50 Labs: Laboratory Results - last 24 hr 07/13/25 11:10: Troponin T High Sens 39 H, b-Hydroxybutyric mmol/L 2.9 H 07/13/25 11:50: WBC 15.0 H, RBC 4.86, Hgb 13.5, Hct 39.4, MCV 81.1, MCH 27.8, MCHC 34.3, RDW Std Deviation 37.7, RDW Coeff of Neida 12.8, Plt Count 508 H, MPV 9.3, Immature Gran % (Auto) 0.500, Neut % (Auto) 89.5 H, Lymph % (Auto) 7.2 L, Rains % (Auto) 2.3, Eos % (Auto) 0.2, Baso % (Auto) 0.3, Absolute Neuts (auto) 13.4 H, Absolute Lymphs (auto) 1.08, Nucleated RBC % 0, D-Dimer Quant (PE/DVT) 0.35, Sodium 129 L, Potassium 4.7, Chloride 90 L, Carbon Dioxide 20.6 L, Anion Gap 19 H, BUN 16, Creatinine 0.64 L, Estim Creat Clear Calc 61.71, Est GFR (MDRD) Non-Af 96, BUN/Creatinine Ratio 24.5 H, Glucose 344 H, Calcium 10.3 07/13/25 11:59: Hemoglobin A1c 8.3 H 07/13/25 12:02: Urine Color Yellow, Urine Clarity Clear, Urine pH 7.0, Ur Specific Gary 1.010, Urine Protein 30 H, Urine Glucose (UA) 1000 H, Urine Ketones 150 A*, Urine Occult Blood Negative, Urine Nitrite Negative, Urine Bilirubin Negative, Urine Urobilinogen Normal, Ur Leukocyte Esterase Negative, Urine RBC 0 SEEN, Urine WBC 0 SEEN, Ur Squamous Epith Cells 0-5 SEEN, Urine Bacteria 0 SEEN, Urine Mucus 0 SEEN 07/13/25 13:15: Troponin T Hi Sens 2 Hr 75 H* 07/13/25 15:15: Troponin T Hi Sens 4Hr 148 H* 07/13/25 16:37: POC Glucose 245 H ABG Data ABG results: ABG 07/13/25 12:07 Specimen Type TARA Sample Site Not entered VBG pH 7.54 H VBG pO2 26 VBG HCO3 22 VBG Total CO2 23 VBG O2 Sat (Calc) 58 VBG Base Excess -1 POC Mix VBG pCO2 Pt Tmp 25.7 L O2 Delivery Device Not entered Cardiology Labs/Tests 07/13/25 11:50: WBC 15.0 H, RBC 4.86, Hgb 13.5, Hct 39.4, MCV 81.1, MCH 27.8, MCHC 34.3, Plt Count 508 H, MPV 9.3, Immature Gran % (Auto) 0.500, Neut % (Auto) 89.5 H, Lymph % (Auto) 7.2 L, Rains % (Auto) 2.3, Eos % (Auto) 0.2, Baso % (Auto) 0.3, Absolute Neuts (auto) 13.4 H, Nucleated RBC % 0, D-Dimer Quant (PE/DVT) 0.35, Sodium 129 L, Potassium 4.7, Chloride 90 L, Carbon Dioxide 20.6 L, Anion Gap 19 H, BUN 16, Creatinine 0.64 L, Est GFR (MDRD) Non-Af 96, BUN/Creatinine Ratio 24.5 H, Glucose 344 H, Calcium 10.3 07/13/25 11:59: Hemoglobin A1c 8.3 H 07/13/25 12:02: Urine Color Yellow, Urine Clarity Clear, Urine pH 7.0, Ur Specific Gary 1.010, Urine Protein 30 H, Urine Glucose (UA) 1000 H, Urine Ketones 150 A*, Urine Occult Blood Negative, Urine Nitrite Negative, Urine Bilirubin Negative, Urine Urobilinogen Normal, Ur Leukocyte Esterase Negative, Urine RBC 0 SEEN, Urine WBC 0 SEEN 07/13/25 12:07: VBG pH 7.54 H, VBG pO2 26, VBG HCO3 22, VBG O2 Sat (Calc) 58, VBG Base Excess -1 Rhythm: EKG: ECHO: Stress Test: Cardiac Cath: PCI: CT Surgery: Holter monitor: EPS: PPM: CXR: Chest CT Scan: Radiography Diagnostic Testing: Radiology Impression Chest X-Ray 07/13/25 12:05 IMPRESSION: NO ACUTE FINDINGS. Borderline cardiomegaly. Reading Location: [facility] Risk Score for UA/STEMI Assesmment (YES = 1) Risk Stratification Applicable: Yes Age > or = 65: Yes > or = 3 CAD risk factors (HTN, Hypercholesterolemia, Diabetes, family hx, current smoker): Yes Known CAD (Stenosis > or = 50%): No ASA used in past 7 days: Yes Severe angina (> or = 2 episodes in 24 hrs): No EKG ST change > or = 0.5mm: No Positive cardiac markers: Yes Score AYANA Risk Score of mortality/ recurrent ischemic event over the next 14 days: 4 = 19.9% - Intermediate
[2025-07-13] MEDS: 0.9% Normal Saline (1000mL) 1,000 ML 250 ML IV (18:24)
[2025-07-13] MEDS: 0.9% Saline Lock 10 ML Syringe IV (18:25)
--- NOTE | 2025-07-13 19:56 | EKG12_ITS ---
Test Reason : CP ADMIT Blood Pressure : */* mmHG Vent. Rate : 105 BPM Atrial Rate : 105 BPM P-R Int : 200 ms QRS Dur : 86 ms QT Int : 352 ms P-R-T Axes : * 4 5 degrees QTcB Int : 465 ms Sinus tachycardia Otherwise normal ECG When compared with ECG of 13-Jul-2025 11:01, MANUAL COMPARISON REQUIRED DATA IS UNCONFIRMED Confirmed by KALIN TURNER, KIMBERLEY ([id number]), photography editor PAT CONTRERAS ([id number]) on 07/14/2025 8:28:56 AM Referred By: Confirmed By: KIMBERLEY GAGNON MD
--- OUTSIDE RECORDS SUMMARY | 2025-07-13 20:35 | XMS RPT_ITS | CCD ---
Author Organization [facility] Care Team Providers Care Net Sql Developer Name Role Phone Unavailable Primary Care Provider [...] Preet Farrar DO Primary Care Provider [employer]ak RECREATION THERAPY AIDES TEACHER.DRAW FIRE OPERATOR, Jacqueline Magalys Unavailable Martir RECREATION THERAPY AIDES TEACHER.DRAW FIRE OPERATOR, Kathryn Unavailable Dr. Preet Farrar DO Primary [...] Dr. Victoria Referring Provider Rios CAMERONN.DEREK, [place] Childs Unavailable Charan QUAN, Dr. Oviedo Primary Care Provider [phone] Rafael TURNER, Dr. Reveles Attending Provider Rafael TURNER, Dr. Reveles Referring Provider Charan QUAN, Dr. Oviedo Referring Provider [phone] Benjie TURNER, Dr. Smart Emergency Provider Charan QAUN, Dr. Oviedo Primary Care Provider Charan QUAN, Dr. Oviedo Referring Provider [phone] Rafael TURNER, Dr. Reveles Attending Provider [phone] Benjie TURNER, Dr. Smart Attending Provider FARRAR, [...] adverse reactions to drug 1 Diarrhea, Itching [facility] Work Phone: (20 sources) metFORMIN; Translations: [metformin] Drug Allergy 0 GI Upset, Itching [facility] (20 sources) predniSONE; Translations: [prednisone] Drug Allergy 3 Itching [facility] Comment on above: itching and hives (12 sources) Salicylic Acid; Translations: [salicylates] Drug Allergy 6 [facility] Work Phone: (20 sources) Sulfonamides (Antibiotic); Translations: [SULFA (SULFONAMIDE ANTIBIOTICS)] Propensity to adverse reactions 6 Rash [facility] Work Phone: (20 sources) Salicylate product Propensity to adverse reactions 6 Hives, GI Upset [facility] Work Phone: (12 sources) Aspirin Drug Allergy 1 mouth swelling [facility] (12 sources) Ibuprofen Drug Allergy 1 mouth swelling [facility] (11 sources) Sulfonamides (Antibiotic) Allergy to substance 3 pt can't remember [facility] (1 source) Gluten Food allergy [facility] (1 source) Sulfonamide; Translations: [sulfa drugs] Drug allergy [facility] (2 sources) Gluten; Translations: [GLUTEN] Propensity to adverse reactions to drug (disorder) 7 [facility] Repository (1 source) Aspirin Drug Allergy 5 [facility] Repository (1 source) Ibuprofen Drug Allergy 5 [facility] (1 source) metFORMIN Drug Allergy 5 [facility] Rep[facility] (1 source) predniSONE Drug Allergy 5 [facility] Repository (1 source) Sulfonamides (Antibiotic) Drug allergy (disorder) 5 [facility] Repository Medications Current Medications Medication Drug [...] 04/03/2025 04/04/2025 Active Blood-Glucose Meter,Continuous (DEXCOM G6 ONCOLOGY SOCIAL WORKER) misc (6 sources) Start: Blood-Glucose Meter,Continuous (DEXCOM G6 ONCOLOGY SOCIAL WORKER) misc Indications: Type 2 diabetes mellitus with [...] change. 1 each 3 04/18/2025 Active cholecalciferol 91358 unt oral capsule (1 source) Vitamin D Cholecalciferol (VITAMIN D3) 1.25 MG (78497 UT) CAPS Take 50,000 capsules by mouth [...] Ergocalciferol (Vitamin D2) 50,000 UNIT capsule Active 03007 U PO MOFR December 18, 2020 12:00am [...] 10 mL injection (DEFINITY) polyethylene glycol 3350 22267 mg powder for oral solution (2 sources) [...] FR December 18, 2020 12:00am Thyroid (Pork) ([place] Thyroid) 30 mg tablet (4 sources) Start: 07-21-2024 Thyroid (Pork) ([place] Thyroid) 30 mg tablet Active 30 mg [...] 1 11/02/2024 Active Start: 07-21-2024 Thyroid (Pork) ([place] Thyroid) 30 mg tablet Active 30 mg [...] 2 tablets by mo uth every week [place] [facility] 120 mg oral tablet 32 EA, [...] Discontinued Start: 11-21-2021 take 1 capsule by [facility] once daily cyanocobalamin, vitamin B-12, 3,000 mcg cap Indications: Vitamin B12 deficiency Take 3,000 mcg by mouth once daily. 30 capsule 3 11/21/2021 Active Comment on above: Take 3,000 mcg by [facility] once daily. dexamethasone 1 mg oral tablet [...] Onset: 02-19-2022 Episodic Other aftercare (2 sources) [facility] (current) use of insulin; Translations: [Type 2 [...] Test Name Value Interpretation Reference Range Facility Ferris Wheel Operator Office Visit Reporton 06-21-2025 Ferris Wheel Operator Office Visit Report [facility]'s [address], [address] [place] [address] OFFICE VISIT Date of Service: 06/21/25 MR#: [id number] Acct: [id number] Name: DEONTE BLANCO Rep #: [id number] : 1955 Provider: Dr. Anushka nolan MD Age/Sex: 69/F [place] [facility] [place]: Signed Intake Vital Signs 05/25/25 21:39 06/21/25 13:02 Height 5 ft 5 ft Weight: 222 lb 184 lb 3 oz BMI 43.3 35.9 BP 164/104 H 149/74 H Respiration 18 Pulse 100 Temp 98.2 F Pulse Oximetry (%) 97 Intake Visit Reasons: ER follow up heavy bleeding Chief Complaint: ER FU Heavy Bleeding Butter Printer Required: No Is patient in pain?: No [...] 30 mg PO MOWEFR 07/21/24 06/21/25 History ([place] Thyroid) insulin glargine 100 unit/mL (3 25 [...] minimal spotting (more content not included)... Normal [facility] CNOVon 05-31-2025 CNOV Office Visit (FAMPWS ) DEONTE BLANCO ([id number]) 1955 F Date Time Provider Department 05/31/25 [...] today: She is going to be seeing Microfilm Duplicating Unit Supervisor Dr. Johnson at [facility] for opinion regarding her diabetes- she is currently taking Lantus once a day in AM, as well as Trulicity 1.5 mg once a week SQ. She is now using CGM which is helping her determine food triggers- she is continuing to work on adjusting this. Recently had situation of a vaginal bleed after intercourse with her boyfriend. Was seen by PURCHASING ASSOCIATE for this condition in the ER Ms. [...] mg armor thyroid) Blood-Glucose Meter,Continuous (DEXCOM G6 ONCOLOGY SOCIAL WORKER) [facility] Use to check blood sugar at least [...] Yes Aroldo (more content not included)... [facility] CNPN Telephone (INTMWS) DEONTE BLANCO ([id number]) 1955 F Date Time Provider Department 05/31/25 PREET FARRAR INTMWS During your visit today, we recorded the following information about you: Liz Richards LPN 05/31/2025 1:28 PM Signed Electronic PA rec'd and completed for trulicity 3mg. This was approved. Prior authorization approved Payer: [employer] PBM Part D [id number] Note from payer: This medication or product was previously approved on [id number] from 2024-12-14 to 2025-09-27. Please note: This [...] to its destination. To be filled at: [facility] [address] [place] [address] [address] [facility] [phone] Allergies As of Date: 05/31/2025 Noted Allergy [...] armor thyroid) - Blood-Glucose Meter,Continuous (DEXCOM G6 ONCOLOGY SOCIAL WORKER) [facility] Use to check blood sugar at least [...] DM - Uncontrolled Insulin: Yes - Insulin [place], Disposable, (BD ULTRA-FINE MARIA T PEN NEEDLE) [...] Disorder [F1 (more content not included)... Normal [facility] Emergency Department Summary on 05-25-2025 Emergency Department Summary [facility] Medical Records Department [address] [place] [address] Emergency Department Summary 05/25/25 MR#: [id number] Acct: [id number] Name: DEONTE BLANCO Rep #: [id number] : 1955 69 From: Berry Waldrop MD [...] mg PO MOWEFR 07/21/24 12/26/24 08:00 History ([place] Thyroid) insulin glargine 100 unit/mL (3 25 [...] alcohol intake (more content not included)... Normal [facility] HbA1c (Bld)on 05-23-2025 Average glucose Estimated from glycated hemoglobin (Bld) [Mass/Vol] 189 mg/dL Normal [facility] Comment on above: Order Comment: Abimbola diaz Type: BLOOD SPECIMENOrdering Facility: [facility] Address: [address] [place] [address] Result Comment: eAG: (Estimated average glucose) is a calculated value from HgbA1c and is dealer compliance representative of the average blood glucose level in the last 2-3 month period. Performed By: #### 5 5454-3 ####[facility] [id number] [place] [address] [place] HbA1c (Bld) [Mass fraction] 8.2 % High 4.3-5.[address] [facility] Comment on above: Order Comment: Abimbola idaz Type: BLOOD SPECIMENOrdering Facility: [facility] Address: [address] [place] [address] Result Comment: Amer ican Diabetes Association guidelines indicate that patients with HgbA1c in the range 5.7-6.4% are at increased risk for development of diabetes, and intervention by lifestyle modification may be beneficial. HgbA1c greater or equal to 6.5% is considered diagnostic of diabetes. Performed By: #### 5 5454-3 ####[facility] LABCLIA [id number] [place] [id number] [place] Lipid 1996 panelon Cholesterol [Mass/Vol] 111 mg/dL Normal <200 [facility] Comment on above: Order Comment: Abimbola diaz Type: BLOOD SPECIMENOrdering Facility: [facility] Address: [address] [place] [address] Result Comment: <200 mg/dL, Desirable 200-239 mg/dL, Borderline high >239 mg/dL, High Performed By: #### 3 016-3, 58464-0 ####[facility] LABCLIA [id number] [facility] [place] [id number] [place] Cholesterol in HDL [Mass/Vol] 55 mg/dL Normal >[address] [facility] Comment on above: Order Comment: Norylillian diaz Type: BLOOD SPECIMENOrdering Facility: [facility] Address: [address] [place] [address] Result Comment: 40-5 9 mg/dL, Acceptable >59 mg/dL, High: Negative risk factor for coronary heart disease <40 mg/dL, Low: Positive risk factor for coronary heart disease Performed By: #### 3 016-3, 11800-4 ####[facility] LABCLIA [id number] [place] [address] [place] Cholesterol in LDL [Mass/Vol] 38 mg/dL Normal <[address] [facility] Comment on above: Order Comment: Norylillian diaz Type: BLOOD SPECIMENOrdering Facility: [facility] Address: [address] [place] [address] Result Comment: <100 mg/dL, Optimal 100-129 mg/dL, Near optimal/above optimal 130-159 mg/dL, Borderline high 160-189 mg/dL, High >189 mg/dL, Very high Secondary prevention optimal LDL Cholesterol levels are recommended to be <70 mg/dL LDL cholesterol is calculated using the Givens-NIH equation. Performed By: #### 3 016-3, 87522-9 ####[facility] LABCLIA [id number] [address] [place] Cholesterol in LDL/Cholesterol in HDL [Mass ratio] 0.69 {ratio} Normal <2.[address] [facility] Comment on above: Order Comment: Abimbola diaz Type: BLOOD SPECIMENOrdering Facility: [facility] Address: [address] [place] [address] Result Comment: Refe jordance: 1. National Cholesterol Education Program ATP III Guideline At-A-Glance Quick Desk Reference: National Heart, Lung, and Blood [place]. National Institutes of Health. 2001: NIH Publication No. 01-3305. 2. An International Atherosclerosis Society position paper: global recommendations for the management of dyslipidemia: executive summary, Atherosclerosis. 2014: 232(2):410-413. Performed By: #### 3 016-3, 89785-7 ####[facility] LABCLIA [id number] [address] [place] [address] [place] Cholesterol in VLDL [Mass/Vol] 13 mg/dL Normal <[address] [facility] Comment on above: Order Comment: Speci men Type: BLOOD SPECIMENOrdering Facility: [facility] Address: [address] [place] [address] Performed By: #### 3 016-3, 84291-8 ####[facility] LABCLIA [id number] [address], [facility] [place] Cholesterol non HDL [Mass/Vol] 56 mg/dL Normal <[address] [facility] Comment on above: Order Comment: Speci men Type: BLOOD SPECIMENOrdering Facility: [facility] Address: [address] [place] [address] Result Comment: <130 mg/dL, Optimal 130-159 mg/dL, Near optimal/above optimal 160-189 mg/dL, Borderline high 190-219 mg/dL, High >219 mg/dL, Very high Secondary prevention optimal non HDL Cholesterol levels are recommended to be <100 mg/dL Performed By: #### 3 016-3, 54267-0 ####[facility] LABIA [id number] [place] [address] [place] Cholesterol.total/Chol esterol in HDL [Mass ratio] 2.02 {ratio} Normal <5.[address] [facility] Comment on above: Order Comment: Speci men Type: BLOOD SPECIMENOrdering Facility: [facility] Address: [address] [place] [address] Performed By: #### 3 016-3, 37214-5 ####[facility] LABCLIA [id number] [place] [id number] [place] FASTING TIME 13 hrs Normal [facility] Comment on above: Order Comment: Speci men Type: BLOOD SPECIMENOrdering Facility: [facility] Address: [address] [place] [address] Performed By: #### 3 016-3, 90688-9 ####[facility] LABIA [id number] [place] [id number] [place] Triglyceride [Mass/Vol] 96 mg/dL Normal <[address] [facility] Comment on above: Order Comment: Speci men Type: BLOOD SPECIMENOrdering Facility: [facility] Address: [address] [place] [address] Result Comment: <150 mg/dL, Normal 150-199 mg/dL, Borderline high 200-499 mg/dL, High >499 mg/dL, Very high Performed By: #### 3 016-3, 30943-9 ####[facility] LABIA [id number] [place] [address] [place] TSH SerPl-aCncon 05-23-2025 TSH Qn 0.033 m[IU]/L Low 0.270-4.[address] [facility] Comment on above: Order Comment: Speci men Type: BLOOD SPECIMENOrdering Facility: [facility] Address: [address] [place] [address] Performed By: #### 3 016-3, 67826-6 ####[facility] [id number] [place] [address] [place] Bacteria Ur Culton 5 Bacteria identified Cx Nom (U) ORGANISM ID: 1 10,000 -<50,000 CFU/ml Normal urogenital jostin Normal [facility] Comment on above: Performed By: #### 6 30-4 ####[facility] LABIA [id number] [place] [id number] [place] CBC W Auto Differential pane l (Bld)on 04-28-2025 Basophils (Bld) [#/Vol] 0.06 10*3/uL Normal <0.[address] [facility] Comment on above: Order Comment: Speci men Type: BLOOD SPECIMENOrdering Facility: [facility] Address: [address] [place] [address] Performed By: #### 5 7021-8 ####[facility] LABCLIA [id number] [facility] [address] [place] [address] [place] Basophils/100 WBC (Bld) 0.5 % Normal [facility] Comment on above: Order Comment: Speci men Type: BLOOD SPECIMENOrdering Facility: [facility] Address: [address] [place] [address] Performed By: #### 5 7021-8 ####[facility] LABCLIA [id number] [address], [facility] [place] Differential cell count method Nom (Bld) Auto Normal [facility] Comment on above: Order Comment: Speci men Type: BLOOD SPECIMENOrdering Facility: [facility] Address: [address] [place] [address] Performed By: #### 5 7021-8 ####[facility] LABCLIA [id number] [address], [place] [address] [place] Eosinophils (Bld) [#/Vol] 0.24 10*3/uL Normal <0.[address] [facility] Comment on above: Order Comment: Speci men Type: BLOOD SPECIMENOrdering Facility: [facility] Address: [address] [place] [address] Performed By: #### 5 7021-8 ####[facility] LABCLIA [id number] [address], [place] [address] [place] Eosinophils/100 WBC (Bld) 1.9 % Normal [facility] Comment on above: Order Comment: Speci men Type: BLOOD SPECIMENOrdering Facility: [facility] Address: [address] [place] [address] Performed By: #### 5 7021-8 ####[facility] LABCLIA [id number] [address] [place] [address] [place] Erythrocyte distribution width (RBC) [Ratio] 13.1 % Normal 11.5-15.[address] [facility] Comment on above: Order Comment: Speci men Type: BLOOD SPECIMENOrdering Facility: [facility] Address: [address] [place] [address] Performed By: #### 5 7021-8 ####[facility] LABCLIA [id number] [place] [address] [place] Hematocrit (Bld) [Volume fraction] 41.5 % Normal 36.0-46.[address] [facility] Comment on above: Order Comment: Speci men Type: BLOOD SPECIMENOrdering Facility: [facility] Address: [address] [place] [address] Performed By: #### 5 7021-8 ####[facility] LABCLIA [id number] [place] [address] [place] Hemoglobin (Bld) [Mass/Vol] 14.1 g/dL Normal 11.5-15.[address] [facility] Comment on above: Order Comment: Speci men Type: BLOOD SPECIMENOrdering Facility: [facility] Address: [address] [place] [address] Performed By: #### 5 7021-8 ####[facility] LABCLIA [id number] [place] [address] [place] Immature granulocytes (Bld) [#/Vol] 0.09 10*3/uL Normal <0.[address] [facility] Comment on above: Order Comment: Speci men Type: BLOOD SPECIMENOrdering Facility: [facility] Address: [address] [place] [address] Performed By: #### 5 7021-8 ####[facility] LABCLIA [id number] [place] [address] [place] Immature granulocytes/100 WBC (Bld) 0.7 % Normal [facility] Comment on above: Order Comment: Speci men Type: BLOOD SPECIMENOrdering Facility: [facility] Address: [address] [place] [address] Performed By: #### 5 7021-8 ####[facility] LABCLIA [id number] [place] [address] [place] Lymphocytes (Bld) [#/Vol] 2.82 10*3/uL Normal 1.00-4.[address] [facility] Comment on above: Order Comment: Speci men Type: BLOOD SPECIMENOrdering Facility: [facility] Address: [address] [place] [address] Performed By: #### 5 7021-8 ####[facility] LABCLIA [id number] [place] [address] [place] Lymphocytes/100 WBC (Bld) 21.8 % Normal [facility] Comment on above: Order Comment: Speci men Type: BLOOD SPECIMENOrdering Facility: [facility] Address: [address] [place] [address] Performed By: #### 5 7021-8 ####[facility] LABIA [id number] [place] [address] [place] MCH (RBC) [Entitic mass] 30.1 pg Normal 26.0-34.[address] [facility] Comment on above: Order Comment: Speci men Type: BLOOD SPECIMENOrdering Facility: [facility] Address: [address] [place] [address] Performed By: #### 5 7021-8 ####[facility] LABIA [id number] [place] [address] [place] MCHC (RBC) [Mass/Vol] 34.0 g/dL Normal 30.5-36.0 [facility] Comment on above: Order Comment: Speci men Type: BLOOD SPECIMENOrdering Facility: [facility] Address: [address] [place] [address] Performed By: #### 5 7021-8 ####[facility] LABIA [id number] [place] [address] [place] MCV (RBC) [Entitic vol] 88.5 fL Normal 80.0-100.[address] [facility] Comment on above: Order Comment: Speci men Type: BLOOD SPECIMENOrdering Facility: [facility] Address: [address] [place] [address] Performed By: #### 5 7021-8 ####[facility] LABCLIA [id number] [address] [address] [place] Monocytes (Bld) [#/Vol] 0.89 10*3/uL High <0.[address] [facility] Comment on above: Order Comment: Speci men Type: BLOOD SPECIMENOrdering Facility: [facility] Address: [address] [place] [address] Performed By: #### 5 7021-8 ####[facility] LABCLIA [id number] [place] [address] [place] Monocytes/100 WBC (Bld) 6.9 % Normal [facility] Comment on above: Order Comment: Speci men Type: BLOOD SPECIMENOrdering Facility: [facility] Address: [address] [place] [address] Performed By: #### 5 7021-8 ####[facility] LABCLIA [id number] [place] [address] [place] Neutrophils (Bld) [#/Vol] 8.83 10*3/uL High 1.45-7.[address] [facility] Comment on above: Order Comment: Speci men Type: BLOOD SPECIMENOrdering Facility: [facility] Address: [address] [place] [address] Performed By: #### 5 7021-8 ####[facility] LABCLIA [id number] [place] [id number] [place] Neutrophils/100 WBC (Bld) 68.2 % Normal [facility] Comment on above: Order Comment: Speci men Type: BLOOD SPECIMENOrdering Facility: [facility] Address: [address] [place] [address] Performed By: #### 5 7021-8 ####[facility] LABCLIA [id number] [facility] [address] [place] [address] [place] Nucleated RBC (Bld) [#/Vol] 10*3/uL Normal <0.[address] [facility] Comment on above: Order Comment: Speci men Type: BLOOD SPECIMENOrdering Facility: [facility] Address: [address] [place] [address] Performed By: #### 5 7021-8 ####[facility] LABCLIA [id number] [facility] [address], [facility] [place] Nucleated RBC/100 WBC (Bld) [Ratio] 0.0 /100 WBC Normal [facility] Comment on above: Order Comment: Speci men Type: BLOOD SPECIMENOrdering Facility: [facility] Address: [address] [place] [address] Performed By: #### 5 7021-8 ####[facility] LABIA [id number] [address], [place] [address] [place] Platelet mean volume (Bld) [Entitic vol] 9.8 fL Normal 9.0-12.[address] [facility] Comment on above: Order Comment: Speci men Type: BLOOD SPECIMENOrdering Facility: [facility] Address: [address] [place] [address] Performed By: #### 5 7021-8 ####[facility] LABIA [id number] [address], [place] [address] [place] Platelets (Bld) [#/Vol] 407 10*3/uL High 150-[address] [facility] Comment on above: Order Comment: Speci men Type: BLOOD SPECIMENOrdering Facility: [facility] Address: [address] [place] [address] Performed By: #### 5 7021-8 ####[facility] LABCLIA [id number] [facility] [address] [place] [address] [place] RBC (Bld) [#/Vol] 4.69 10*6/uL Normal 3.90-5.20 [facility] Comment on above: Order Comment: Speci men Type: BLOOD SPECIMENOrdering Facility: [facility] Address: [address] [place] [address] Performed By: #### 5 7021-8 ####[facility] LABCLIA [id number] [place] [address] [place] WBC (Bld) [#/Vol] 12.93 10*3/uL High 3.70-11.00 [facility] Comment on above: Order Comment: Speci men Type: BLOOD SPECIMENOrdering Facility: [facility] Address: [address] [place] [address] Performed By: #### 5 7021-8 ####[facility] LABCLIA [id number] [place] [address] [place] Urinalysis complete panel (U )on 04-28-2025 Bacteria LM.HPF (Urine sed) [#/Area] Negative Normal Negative [facility] Comment on above: Order Comment: Speci men Type: URINE SPECIMENOrdering Facility: [facility] Address: [address] [place] [address] Performed By: #### 2 4356-8 ####[facility] LABIA [id number] [place] [address] [place] Bilirubin Ql (U) Negative Normal Negative [facility] Comment on above: Order Comment: Speci men Type: URINE SPECIMENOrdering Facility: [facility] Address: [address] [place] [address] Performed By: #### 2 4356-8 ####[facility] LABCLIA [id number] [place] [address] [place] Clarity (Unsp spec) Clear Normal Clear [facility] Comment on above: Order Comment: Speci men Type: URINE SPECIMENOrdering Facility: [facility] Address: [address] [place], [place] [address] Performed By: #### 2 4356-8 ####[facility] LABCLIA [id number] [place] [address] [place] Color (U) Yellow Normal Yellow [facility] Comment on above: Order Comment: Speci men Type: URINE SPECIMENOrdering Facility: [facility] Address: [address] [place] [address] Performed By: #### 2 4356-8 ####[facility] LABCLIA [id number] [address], [place] [address] [place] Epithelial cells LM.HPF (Urine sed) [#/Area] Few Normal [facility] Comment on above: Order Comment: Speci men Type: URINE SPECIMENOrdering Facility: [facility] Address: [address] [place] [address] Performed By: #### 2 4356-8 ####[facility] LABIA [id number] [address] [place] Glucose Test strip (U) [Mass/Vol] 1+ Abnormal Negative [facility] Comment on above: Order Comment: Speci men Type: URINE SPECIMENOrdering Facility: [facility] Address: [address] [place] [address] Performed By: #### 2 4356-8 ####[facility] LABCLIA [id number] [place] [id number] [place] Hemoglobin Ql (U) Negative Normal Negative [facility] Comment on above: Order Comment: Speci men Type: URINE SPECIMENOrdering Facility: [facility] Address: [address] [place] [address] Performed By: #### 2 4356-8 ####[facility] LABCLIA [id number] [address], [facility]95 [place] Hyaline casts (Urine sed) [#/Area] 0 /[LPF] Normal 0 /LPF [facility] Comment on above: Order Comment: Speci men Type: URINE SPECIMENOrdering Facility: [facility] Address: [address] [place] [address] Performed By: #### 2 4356-8 ####[facility] LABCLIA [id number] [address] [place] [address] [place] Ketones Ql (U) Negative Normal Negative [facility] Comment on above: Order Comment: Speci men Type: URINE SPECIMENOrdering Facility: [facility] Address: [address] [place] [address] Performed By: #### 2 4356-8 ####[facility] LABCLIA [id number] [place] [address] [place] Leukocyte esterase Test strip Ql (U) Negative Normal Negative [facility] Comment on above: Order Comment: Speci men Type: URINE SPECIMENOrdering Facility: [facility] Address: [address] [place] [address] Performed By: #### 2 4356-8 ####[facility] LABCLIA [id number] [address], [facility] [place] Nitrite Ql (U) Negative Normal Negative [facility] Comment on above: Order Comment: Speci men Type: URINE SPECIMENOrdering Facility: [facility] Address: [address] [place] [address] Performed By: #### 2 4356-8 ####[facility] LABCLIA [id number] [place] [id number] [place] pH (U) 5.5 [pH] Normal 5.0-8.[address] [facility] Comment on above: Order Comment: Speci men Type: URINE SPECIMENOrdering Facility: [facility] Address: [address] [place] [address] Performed By: #### 2 4356-8 ####[facility] LABCLIA [id number] [address], [facility] [place] Protein (U) [Mass/Vol] Negative Normal Negative [facility] Comment on above: Order Comment: Speci men Type: URINE SPECIMENOrdering Facility: [facility] Address: [address] [place] [address] Performed By: #### 2 4356-8 ####[facility] LABIA [id number] [place] [address] [place] RBC LM.HPF (Urine sed) [#/Area] 0-2 /HPF Normal 0-2 /HPF [facility] Comment on above: Order Comment: Speci men Type: URINE SPECIMENOrdering Facility: [facility] Address: [address] [place] [address] Performed By: #### 2 4356-8 ####[facility] [id number] [address] [place] Specific gravity (U) [Rel density] 1.017 Normal 1.005-1.[address] [facility] Comment on above: Order Comment: Speci men Type: URINE SPECIMENOrdering Facility: [facility] Address: [address] [place] [address] Performed By: #### 2 4356-8 ####[facility] [id number] [address] [place] Urobilinogen Ql (U) 0.2 EU/dL Normal 0.2-1.0 EU/dL [facility] Comment on above: Order Comment: Speci men Type: URINE SPECIMENOrdering Facility: [facility] Address: [address] [place] [address] Performed By: #### 2 4356-8 ####[facility] LABIA [id number] [place] [address] [place] WBC LM.HPF (Urine sed) [#/Area] 0-5 /HPF Normal 0-5 /HPF [facility] Comment on above: Order Comment: Speci men Type: URINE SPECIMENOrdering Facility: [facility] Address: [address] [place] [address] Performed By: #### 2 4356-8 ####[facility] LABIA [id number] [place] [address] [place] ALBUMIN/CREATININE RATIO, UR INEon 04-18-2025 Albumin DL <= 20 mg/L (U) [Mass/Vol] mg/L mg/L [facility] Albumin/Creatinine (U) [Mass ratio] mg/g NINF - 30 mg/g [facility] Comment on above: Adult Male and Femal [...] [Mass/Vol] 122.8 mg/dL 20.0 - 300.0 mg/dL [facility] Albumin DL <= 20 mg/L (U) [Mass/Vol] mg/dL Normal [facility] Comment on above: Order Comment: Speci men Type: URINE SPECIMENOrdering Facility: [facility] Address: [address] [place] [address] Performed By: #### U ACR ####[facility] LABIA [id number] [address] [place] Albumin/Creatinine (U) [Mass ratio] <10 Normal <[address] [facility] Comment on above: Order Comment: Speci men Type: URINE SPECIMENOrdering Facility: [facility] Address: [address] [place] [address] Result Comment: Adul t Male and Female Nephrotic Criteria: <30 mg/g is considered normal to mildly increased 30-300 mg/g is considered moderately increased >300 mg/g is considered severely increased KDIGO. (2013). KDIGO 2012 Clinical Practice Guideline for the Evaluation and Management of Chronic Kidney Disease. Official Journal of the International Society of Nephrology, 3(1), 1-150. Performed By: #### U ACR ####[facility] LABCLIA [id number] [address] [place] [facility] Creatinine (U) [Mass/Vol] 122.8 mg/dL Normal 20.0-300.[address] [facility] Comment on above: Order Comment: Speci men Type: URINE SPECIMENOrdering Facility: [facility] Address: [address] [place] [address] Performed By: #### U ACR ####[facility] LABCLIA [id number] [place] [address] [place] CBC W Auto Differential pane l (Bld)on 04-18-2025 Basophils (Bld) [#/Vol] 0.08 10*3/uL [facility] Basophils/100 WBC (Bld) 0.6 % [facility] Differential cell count method Nom (Bld) Auto [facility] Eosinophils (Bld) [#/Vol] 0.14 10*3/uL [facility] Eosinophils/100 WBC (Bld) 1 % [facility] Erythrocyte distribution width (RBC) [Ratio] 12.8 % 11.5 - 15.0 % [facility] Hematocrit (Bld) [Volume fraction] 42.2 % 36.0 - 46.0 % [facility] Hemoglobin (Bld) [Mass/Vol] 14.3 g/dL 11.5 - 15.5 g/dL [facility] Immature granulocytes (Bld) [#/Vol] 0.1 10*3/uL High [facility] Immature granulocytes/100 WBC (Bld) 0.7 % [facility] Interpretation and review of laboratory results Abnormal [facility] Lymphocytes (Bld) [#/Vol] 2.02 10*3/uL [facility] Lymphocytes/100 WBC (Bld) 14.3 % [facility] MCH (RBC) [Entitic mass] 29.4 pg 26.0 - 34.0 pg [facility] MCHC (RBC) [Mass/Vol] 33.9 g/dL 30.5 - 36.0 g/dL [facility] MCV (RBC) [Entitic vol] 86.8 fL 80.0 - 100.0 fL [facility] Monocytes (Bld) [#/Vol] 0.9 10*3/uL High NINF [facility] Monocytes/100 WBC (Bld) 6.4 % [facility] Neutrophils (Bld) [#/Vol] 10.93 10*3/uL High [facility] Neutrophils/100 WBC (Bld) 77 % [facility] Nucleated RBC (Bld) [#/Vol] NINF [facility] Nucleated RBC/100 WBC (Bld) [Ratio] 0 % /100 WBC [facility] Platelet mean volume (Bld) [Entitic vol] 9.8 fL 9.0 - 12.7 fL [facility] Platelets (Bld) [#/Vol] 392 10*3/uL [facility] RBC (Bld) [#/Vol] 4.86 10*6/uL 3.90 - 5.20 m/uL [facility] WBC (Bld) [#/Vol] 14.17 10*3/uL High [facility] Basophils (Bld) [#/Vol] 0.08 10*3/uL Normal <0.[address] [facility] Comment on above: Order Comment: Speci men Type: BLOOD SPECIMENOrdering Facility: [facility] Address: [address] [place] [address] Performed By: #### 5 7021-8 ####[facility] LABIA [id number] [place] [address] [place] Basophils/100 WBC (Bld) 0.6 % Normal [facility] Comment on above: Order Comment: Speci men Type: BLOOD SPECIMENOrdering Facility: [facility] Address: [address] [place] [address] Performed By: #### 5 7021-8 ####[facility] LABIA [id number] [place] [address] [place] Differential cell count method Nom (Bld) Auto Normal [facility] Comment on above: Order Comment: Speci men Type: BLOOD SPECIMENOrdering Facility: [facility] Address: [address] [place] [address] Performed By: #### 5 7021-8 ####[facility] LABCLIA [id number] [address] [place] [address] [place] Eosinophils (Bld) [#/Vol] 0.14 10*3/uL Normal <0.[address] [facility] Comment on above: Order Comment: Speci men Type: BLOOD SPECIMENOrdering Facility: [facility] Address: [address] [place] [address] Performed By: #### 5 7021-8 ####[facility] LABCLIA [id number] [address], [place] [address] [place] Eosinophils/100 WBC (Bld) 1.0 % Normal [facility] Comment on above: Order Comment: Speci men Type: BLOOD SPECIMENOrdering Facility: [facility] Address: [address] [place] [address] Performed By: #### 5 7021-8 ####[facility] LABCLIA [id number] [address], [place] [address] [place] Erythrocyte distribution width (RBC) [Ratio] 12.8 % Normal 11.5-15.[address] [facility] Comment on above: Order Comment: Speci men Type: BLOOD SPECIMENOrdering Facility: [facility] Address: [address] [place] [address] Performed By: #### 5 7021-8 ####[facility] LABCLIA [id number] [address], [place] [address] [place] Hematocrit (Bld) [Volume fraction] 42.2 % Normal 36.0-46.[address] [facility] Comment on above: Order Comment: Speci men Type: BLOOD SPECIMENOrdering Facility: [facility] Address: [address] [place] [address] Performed By: #### 5 7021-8 ####[facility] LABCLIA [id number] [address], [facility] [place] Hemoglobin (Bld) [Mass/Vol] 14.3 g/dL Normal 11.5-15.[address] [facility] Comment on above: Order Comment: Speci men Type: BLOOD SPECIMENOrdering Facility: [facility] Address: [address] [place] [address] Performed By: #### 5 7021-8 ####[facility] LABCLIA [id number] [place] [address] [place] Immature granulocytes (Bld) [#/Vol] 0.10 10*3/uL High <0.[address] [facility] Comment on above: Order Comment: Speci men Type: BLOOD SPECIMENOrdering Facility: [facility] Address: [address] [place] [address] Performed By: #### 5 7021-8 ####[facility] LABCLIA [id number] [place] [address] [place] Immature granulocytes/100 WBC (Bld) 0.7 % Normal [facility] Comment on above: Order Comment: Speci men Type: BLOOD SPECIMENOrdering Facility: [facility] Address: [address] [place] [address] Performed By: #### 5 7021-8 ####[facility] LABCLIA [id number] [place] [address] [place] Lymphocytes (Bld) [#/Vol] 2.02 10*3/uL Normal 1.00-4.[address] [facility] Comment on above: Order Comment: Speci men Type: BLOOD SPECIMENOrdering Facility: [facility] Address: [address] [place] [address] Performed By: #### 5 7021-8 ####[facility] LABCLIA [id number] [place] [address] [place] Lymphocytes/100 WBC (Bld) 14.3 % Normal [facility] Comment on above: Order Comment: Speci men Type: BLOOD SPECIMENOrdering Facility: [facility] Address: [address] [place] [address] Performed By: #### 5 7021-8 ####[facility] LABIA [id number] [place] [address] [place] MCH (RBC) [Entitic mass] 29.4 pg Normal 26.0-34.[address] [facility] Comment on above: Order Comment: Speci men Type: BLOOD SPECIMENOrdering Facility: [facility] Address: [address] [place] [address] Performed By: #### 5 7021-8 ####[facility] LABIA [id number] [place] [address] [place] MCHC (RBC) [Mass/Vol] 33.9 g/dL Normal 30.5-36.0 [facility] Comment on above: Order Comment: Speci men Type: BLOOD SPECIMENOrdering Facility: [facility] Address: [address] [place] [address] Performed By: #### 5 7021-8 ####[facility] [id number] [place] [address] [place] MCV (RBC) [Entitic vol] 86.8 fL Normal 80.0-100.[address] [facility] Comment on above: Order Comment: Speci men Type: BLOOD SPECIMENOrdering Facility: [facility] Address: [address] [place] [address] Performed By: #### 5 7021-8 ####[facility] LABIA [id number] [place] [address] [place] Monocytes (Bld) [#/Vol] 0.90 10*3/uL High <0.[address] [facility] Comment on above: Order Comment: Speci men Type: BLOOD SPECIMENOrdering Facility: [facility] Address: [address] [place] [address] Performed By: #### 5 7021-8 ####[facility] LABSOU[facility] [id number] [id number] [address] [place] Monocytes/100 WBC (Bld) 6.4 % Normal [facility] Comment on above: Order Comment: Speci men Type: BLOOD SPECIMENOrdering Facility: [facility] Address: [address] [place] [address] Performed By: #### 5 7021-8 ####[facility] LABCLIA [id number] [place] [address] [place] Neutrophils (Bld) [#/Vol] 10.93 10*3/uL High 1.45-7.[address] [facility] Comment on above: Order Comment: Speci men Type: BLOOD SPECIMENOrdering Facility: [facility] Address: [address] [place] [address] Performed By: #### 5 7021-8 ####[facility] LABCLIA [id number] [place] [address] [place] Neutrophils/100 WBC (Bld) 77.0 % Normal [facility] Comment on above: Order Comment: Speci men Type: BLOOD SPECIMENOrdering Facility: [facility] Address: [address] [place] [address] Performed By: #### 5 7021-8 ####[facility] LABCLIA [id number] [place] [address] [place] Nucleated RBC (Bld) [#/Vol] 10*3/uL Normal <0.[address] [facility] Comment on above: Order Comment: Speci men Type: BLOOD SPECIMENOrdering Facility: [facility] Address: [address] [place] [address] Performed By: #### 5 7021-8 ####[facility] LABCLIA [id number] [place] [address] [place] Nucleated RBC/100 WBC (Bld) [Ratio] 0.0 /100 WBC Normal [facility] Comment on above: Order Comment: Speci men Type: BLOOD SPECIMENOrdering Facility: [facility] Address: [address] [place] [address] Performed By: #### 5 7021-8 ####[facility] LABCLIA [id number] [place] [id number] [place] Platelet mean volume (Bld) [Entitic vol] 9.8 fL Normal 9.0-12.[address] [facility] Comment on above: Order Comment: Speci men Type: BLOOD SPECIMENOrdering Facility: [facility] Address: [address] [place] [address] Performed By: #### 5 7021-8 ####[facility] LABIA [id number] [place] [address] [place] Platelets (Bld) [#/Vol] 392 10*3/uL Normal 150-[address] [facility] Comment on above: Order Comment: Speci men Type: BLOOD SPECIMENOrdering Facility: [facility] Address: [address] [place] [address] Performed By: #### 5 7021-8 ####[facility] LABCLIA [id number] [place] [address] [place] RBC (Bld) [#/Vol] 4.86 10*6/uL Normal 3.90-5.20 [facility] Comment on above: Order Comment: Speci men Type: BLOOD SPECIMENOrdering Facility: [facility] Address: [address] [place] [address] Performed By: #### 5 7021-8 ####[facility] LABCLIA [id number] [place] [id number] [place] WBC (Bld) [#/Vol] 14.17 10*3/uL High 3.70-11.00 [facility] Comment on above: Order Comment: Speci men Type: BLOOD SPECIMENOrdering Facility: [facility] Address: [address] [place] [address] Performed By: #### 5 7021-8 ####[facility] LABCLIA [id number] [place] [id number] [facility] CNOVon 04-18-2025 CNOV Office Visit (FAMPWS ) DEONTE BLANCO ([id number]) 1955 F Date Time Provider Department 04/18/25 [...] by Dr. 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 Normal [facility] Comprehensive metabolic 2000 panelon 04-18-2025 Albumin [Mass/Vol] 4.1 g/dL 3.9 - 4.9 g/dL [facility] ALP [Catalytic activity/Vol] 116 U/L 34 - 123 U/L [facility] ALT [Catalytic activity/Vol] 13 U/L 7 - 38 U/L [facility] Anion gap [Moles/Vol] 14 mmol/L 8 - 15 mmol/L [facility] AST [Catalytic activity/Vol] 19 U/L 13 - 35 U/L [facility] Bilirubin [Mass/Vol] 0.7 mg/dL 0.2 - 1 .3 mg/dL [facility] Calcium [Mass/Vol] 9.9 mg/dL 8.5 - 10. 2 mg/dL [facility] Chloride [Moles/Vol] 95 mmol/L Low 98 - 10 7 mmol/L [facility] CO2 [Moles/Vol] 23 mmol/L 22 - 30 mmol/L [facility] Creatinine [Mass/Vol] 0.77 mg/dL 0.58 - 0.96 mg/dL [facility] GFR/1.73 sq M.predicted among non-blacks MDRD (S/P/Bld) [Vol rate/Area] 84 mL/min/{1.73_m2} - PINF [facility] Comment on above: Estimated Glomerular Filtration Rate [...] 277 mg/dL High 74 - 99 mg/dL [facility] Comment on above: The [place] Diab[employer] (ADA) provides guidance for [...] Standards of Medical Care in Diabetes 2016, [place] [employer]. Diabetes Care. 2016.39(Suppl 1). Interpretation and review of laboratory results Abnormal [facility] Potassium [Moles/Vol] 4 mmol/L 3.7 - 5.1 mmol/L [facility] Protein [Mass/Vol] 7.2 g/dL 6.3 - 8.0 g/dL [facility] [facility] Sodium [Moles/Vol] 132 mmol/L Low 136 - 144 mmol/L [facility] Urea nitrogen [Mass/Vol] 19 mg/dL 7 - 21 mg/dL [facility] Albumin [Mass/Vol] 4.1 g/dL Normal 3.9-4.9 [facility] Comment on above: Order Comment: Abimbola diaz Type: BLOOD SPECIMENOrdering Facility: [facility] Address: [address] [place] [address] Performed By: #### 2 4323-8 ####[facility] LABCLIA [id number] [place] [address] [place] ALP [Catalytic activity/Vol] 116 U/L Normal 34-[address] [facility] Comment on above: Order Comment: Abimbola diaz Type: BLOOD SPECIMENOrdering Facility: [facility] Address: [address] [place] [address] Performed By: #### 2 4323-8 ####[facility] LABCLIA [id number] [facility] [id number] [address] [place] ALT [Catalytic activity/Vol] 13 U/L Normal 7-[address] [facility] Comment on above: Order Comment: Speci men Type: BLOOD SPECIMENOrdering Facility: [facility] Address: [address] [place], [place] [address] Performed By: #### 2 4323-8 ####[facility] LABCLIA [id number] [facility] [address] [place] [address] [place] Anion gap [Moles/Vol] 14 mmol/L Normal 8-15 [facility] Comment on above: Order Comment: Speci men Type: BLOOD SPECIMENOrdering Facility: [facility] Address: [address] [place] [address] Performed By: #### 2 4323-8 ####[facility] LABCLIA [id number] [address], [facility]95 [place] AST [Catalytic activity/Vol] 19 U/L Normal 13-[address] [facility] Comment on above: Order Comment: Speci men Type: BLOOD SPECIMENOrdering Facility: [facility] Address: [address] [place], [place] [address] Performed By: #### 2 4323-8 ####[facility] LABCLIA [id number] [facility] [place] [id number] [place] Bilirubin [Mass/Vol] 0.7 mg/dL Normal 0.2-1.3 [facility] Comment on above: Order Comment: Speci men Type: BLOOD SPECIMENOrdering Facility: [facility] Address: [address] [place], [place] [address] Performed By: #### 2 4323-8 ####[facility] LABCLIA [id number] [facility] [address] [address] [place] Calcium [Mass/Vol] 9.9 mg/dL Normal 8.5-10.2 [facility] Comment on above: Order Comment: Speci men Type: BLOOD SPECIMENOrdering Facility: [facility] Address: [address] [place] [id number] Performed By: #### 2 4323-8 ####[facility] LABCLIA [id number] [address] [address] [place] Chloride [Moles/Vol] 95 mmol/L Low 98-107 [facility] Comment on above: Order Comment: Speci men Type: BLOOD SPECIMENOrdering Facility: [facility] Address: [address] [place] [address] Performed By: #### 2 4323-8 ####[facility] LABCLIA [id number] [place] [id number] [place] CO2 [Moles/Vol] 23 mmol/L Normal 22-[address] [facility] Comment on above: Order Comment: Speci men Type: BLOOD SPECIMENOrdering Facility: [facility] Address: [address] [place] [address] Performed By: #### 2 4323-8 ####[facility] LABCLIA [id number] [place] [id number] [place] Creatinine [Mass/Vol] 0.77 mg/dL Normal 0.58-0.96 [facility] Comment on above: Order Comment: Speci men Type: BLOOD SPECIMENOrdering Facility: [facility] Address: [address] [place] [address] Performed By: #### 2 4323-8 ####[facility] LABCLIA [id number] [place] [id number] [place] eGFRcr SerPlBld CKD-EPI 2020 84 mL/min/1.73m??? Normal >=[address] [facility] Comment on above: Order Comment: Speci men Type: BLOOD SPECIMENOrdering Facility: [facility] Address: [address] [place] [address] Result Comment: Ana Paula mated Glomerular Filtration [...] Performed By: #### 2 4323-8 ####[facility] LABIA [id number] [place] [id number] [place] Glucose [Mass/Vol] 277 mg/dL High 74-99 [facility] Comment on above: Order Comment: Abimbola diaz Type: BLOOD SPECIMENOrdering Facility: [facility] Address: [address] [place] [address] Result Comment: The [place] Diabetes Association (ADA) provides guidance for cutoff [...] Standards of Medical Care in Diabetes 2016, [place] [employer]. Diabetes Care. 2016.39(Suppl 1). Performed By: #### 2 4323-8 ####[facility] LABIA [id number] [facility] [address] [address] [place] Potassium [Moles/Vol] 4.0 mmol/L Normal 3.7-5.1 [facility] Comment on above: Order Comment: Abimbola diaz Type: BLOOD SPECIMENOrdering Facility: [facility] Address: [address] [place] [phone] Performed By: #### 2 4323-8 ####[facility] LABCLIA [id number] [facility] [address] [address] [place] Protein [Mass/Vol] 7.2 g/dL Normal 6.3-8.0 [facility] Comment on above: Order Comment: Speci men Type: BLOOD SPECIMENOrdering Facility: [facility] Address: [address] [place] [address] Performed By: #### 2 4323-8 ####[facility] LABCLIA [id number] [place] [id number] [place] Sodium [Moles/Vol] 132 mmol/L Low 136-144 [facility] Comment on above: Order Comment: Speci men Type: BLOOD SPECIMENOrdering Facility: [facility] Address: [address] [place] [address] Performed By: #### 2 4323-8 ####[facility] LABCLIA [id number] [place] [id number] [place] Urea nitrogen [Mass/Vol] 19 mg/dL Normal 7-[address] [facility] Comment on above: Order Comment: Speci men Type: BLOOD SPECIMENOrdering Facility: [facility] Address: [address] [place] [address] Performed By: #### 2 4323-8 ####[facility] LABCLIA [id number] [place] [id number] [place] GLUCOSE, BLOOD (POC)on 04-18 Glucose [Mass/Vol] 280 mg/dL Abnormal 74 - 99 mg/dL [facility] Comment on above: Location:[address], [facility] The Accu-Chek Inform II glucose meter has [...] Interpretation and review of laboratory results Abnormal [facility] CNPNon 04-17-2025 CNPN Telephone (FAMPWS) DEONTE BLANCO ([id number]) 1955 F Date Time Provider Department 04/17/25 [...] DM - Uncontrolled Insulin: Yes - Insulin [place], Disposable, (BD ULTRA-FINE MARIA T PEN NEEDLE) [...] *12/09/2023 Diabet (more content not included)... Normal [facility] Absolute lymphocyte countOrd ered By: Berry Waldrop on 04-15-2025 Lymphocytes Auto (Unsp spec) [#/Vol] 2.26 10*3/uL 0.83-4.51 [facility] Absolute neutrophil countOrd ered By: Berry Waldrop on 04-15-2025 Neutrophils (Bld) [#/Vol] 17.1 10*3/uL High 2.0-7.7 [facility] Anion gap in Serum or Plasma Ordered By: Berry Waldrop on 04-15-2025 Anion gap [Moles/Vol] 15 mmol/L 5-15 [facility] Assessment of wrist artery p atency prior to arterial punctureOrdered By: Berry Waldrop on 04-15-2025 Arterial patency Wrist artery --pre arterial puncture Positive [facility] Automated lymphocyte count a s percentage of total leukocytesOrdered By: Berry Waldrop on 04-15-2025 Lymphocytes/100 WBC Auto (Unsp spec) 10.8 % Low [facility] BUN/creatinine ratioOrdered By: Berry Waldrop on 04-15-2025 Urea nitrogen/Creatinine [Mass ratio] 30.7 mg/mg High 07-17 [facility] Basic Metabolic Profile (BMP )on 04-15-2025 BUN/CRE 30.7 RATIO High 07-17 [facility] Comment on above: Order Comment: Redra wn send after the liter of normal saline. Performed By: #### L 501.080 #### [facility] [address] [facility] [address] Calcium [Mass/Vol] 9.3 mg/dL Normal 7.6-11.0 [facility] Comment on above: Order Comment: Redra wn send after the liter of normal saline. Performed By: #### L 501.080 #### [facility] [address] [facility] [address] Chloride [Moles/Vol] 94 mmol/L Low 98-108 [facility] Comment on above: Order Comment: Redra wn send after the liter of normal saline. Performed By: #### L 501.080 #### [facility] [address] [place], [address] CO2 [Moles/Vol] 21.1 mmol/L Normal 21.0-32.0 [facility] Comment on above: Order Comment: Redra wn send after the liter of normal saline. Performed By: #### L 501.080 #### [facility] [address] [place], [address] Creatinine [Mass/Vol] 0.69 mg/dL Low 0.70-1.20 [facility] Comment on above: Order Comment: Redra wn send after the liter of normal saline. Performed By: #### L 501.080 #### [facility] [address] [place], [address] ECRCL 62.82 ml/min Normal 50-250 [facility] Comment on above: Order Comment: Redra wn send after the liter of normal saline. Performed By: #### L 501.080 #### [facility] [address] [place], [address] GAP 15 Normal 5-15 [facility] Comment on above: Order Comment: Redra wn send after the liter of normal saline. Performed By: #### L 501.080 #### [facility] [address] [place], [address] GFR/1.73 sq M.predicted among non-blacks MDRD (S/P/Bld) [Vol rate/Area] 94 mL/min/{1.73_m2} Normal >60 [facility] Comment on above: Order Comment: Redra wn send after the liter of normal saline. Result Comment: mL/m in/1.73m2 CKD-EPI Creatinine Equation (2020) Performed By: #### L 501.080 #### [facility] [address] [place], [address] Glucose [Mass/Vol] 264 mg/dL High 70-99 [facility] Comment on above: Order Comment: Redra wn send after the liter of normal saline. Performed By: #### L 501.080 #### [facility] [address] [place], [address] Potassium [Moles/Vol] 3.5 mmol/L Normal 3.3-5.1 [facility] Comment on above: Order Comment: Redra wn send after the liter of normal saline. Result Comment: Hemo lysis present, Results??could be affected. ?? Performed By: #### L 501.080 #### [facility] [address] [place], [address] Sodium [Moles/Vol] 130 mmol/L Low 133-145 [facility] Comment on above: Order Comment: Redra wn send after the liter of normal saline. Performed By: #### L 501.080 #### [facility] [address] [place], [address] Urea nitrogen [Mass/Vol] 21 mg/dL High 4-19 [facility] Comment on above: Order Comment: Redra wn send after the liter of normal saline. Performed By: #### L 501.080 #### [facility] [address] [place], [address] BUN/CRE 27.9 RATIO High 10-20 [facility] Comment on above: Performed By: #### L 501.080 #### [facility] [address] [place], [address] Calcium [Mass/Vol] 10.5 mg/dL Normal 7.6-11.0 [facility] Comment on above: Performed By: #### L 501.080 #### [facility] [address] [place], [address] Chloride [Moles/Vol] 89 mmol/L Low 98-108 [facility] Comment on above: Performed By: #### L 501.080 #### [facility] [address] [place], [address] CO2 [Moles/Vol] 20.4 mmol/L Low 21.0-32.0 [facility] Comment on above: Performed By: #### L 501.080 #### [facility] [address] [place], [address] Creatinine [Mass/Vol] 1.06 mg/dL Normal 0.70-1.20 [facility] Comment on above: Performed By: #### L 501.080 #### [facility] [address] [place], [address] GAP 18 High 5-15 [facility] Comment on above: Performed By: #### L 501.080 #### [facility] [address] [place], [address] GFR/1.73 sq M.predicted among non-blacks MDRD (S/P/Bld) [Vol rate/Area] 57 mL/min/{1.73_m2} Low >60 [facility] Comment on above: Result Comment: mL/m in/1.73m2 CKD-EPI Creatinine Equation (2020) Performed By: #### L 501.080 #### [facility] [address] [place], [address] Glucose [Mass/Vol] 364 mg/dL High 70-99 [facility] Comment on above: Performed By: #### L 501.080 #### [facility] [address] [place], [address] Potassium [Moles/Vol] 5.2 mmol/L High 3.3-5.1 [facility] Comment on above: Result Comment: Hemo lysis present, Results??could be affected. ?? Performed By: #### L 501.080 #### [facility] [address] [place], [address] Sodium [Moles/Vol] 127 mmol/L Low 133-145 [facility] Comment on above: Performed By: #### L 501.080 #### [facility] [address] [place], [address] Urea nitrogen [Mass/Vol] 30 mg/dL High 4-19 [facility] Comment on above: Performed By: #### L 501.080 #### [facility] [address] [place], [address] Basophil percentageOrdered B y: Berry Waldrop on 04-15-2025 Basophils/100 WBC (Bld) 0.4 % 0-1 [facility] Bedside Glucoseon 04-15-2025 FINGERSTICK GLU 260 mg/dL High 74-106 [facility] Comment on above: Result Comment: CARIN GEMENT OF PATIENT CARE PER NURSING PROTOCOL Performed By: #### L 501.080 #### [facility] [address] [place], [address] FINGERSTICK GLU 269 mg/dL High 74-106 [facility] Comment on above: Result Comment: CARIN GEMENT OF PATIENT CARE PER NURSING PROTOCOL Performed By: #### L 501.080 #### [facility] [address] [place], [address] Beta-Hydroxbytyrateon 2024 BETA-HYDROXYBUT 0.4 mmol/L High 0.0-0.3 [facility] Comment on above: Performed By: #### L 501.080 #### [facility] [address] [place], [address] Beta-hydroxybutyrateOrdered By: Berry Waldrop on 04-15-2025 Beta hydroxybutyrate [Mass/Vol] 0.4 mmol/L High 0.0-0.3 [facility] Bilirubin Test strip Ql (U)O rdered By: Berry Waldrop on 04-15-2025 Bilirubin Ql (U) Negative Negative [facility] Blood Gases by CPSon 025 BEATRIZ TEST Positive Normal [facility] Comment on above: Performed By: #### L 9000.0800 #### [facility] [address] [place], [address] Base excess Calc (Bld) [Moles/Vol] -1 mmol/L Normal -2 to +2 [facility] Comment on above: Performed By: #### L 9000.0800 #### [facility] [address] [place], [address] Blood Gas Type ART Normal [facility] Comment on above: Performed By: #### L 8999.08 #### [facility] [address] [place], [address] CO2 [Moles/Vol] 22 mmol/L Normal [facility] Comment on above: Performed By: #### L 8999.08 #### [facility] [address] [place], [address] HCO3 (Bld) [Moles/Vol] 20.8 mmol/L Low 22-26 [facility] Comment on above: Performed By: #### L 8999.799 #### [facility] [address] [place], [address] Mode Not entered Normal [facility] Comment on above: Performed By: #### L 8999.08 #### [facility] [address] [place], [address] O2 Delivery Dev Room Air Normal [facility] Comment on above: Performed By: #### L 8999.08 #### [facility] [address] [place], [address] pCO2 21.8 mmHg Low 35-45 [facility] Comment on above: Performed By: #### L 8999.0800 #### [facility] [address] [place], [address] pH (Bld) 7.59 [pH] High 7.35-7.45 [facility] Comment on above: Performed By: #### L 8999.0800 #### [facility] [address] [place], [address] PO2 89 mmHG Normal 75-100 [facility] Comment on above: Performed By: #### L 9000.0800 #### [facility] [address] [place], [address] SITE L Radial Normal [facility] Comment on above: Performed By: #### L 9000.0800 #### [facility] [address] [place], [address] SO2 98 Normal 95-99 [facility] Comment on above: Performed By: #### L 9000.0800 #### [facility] [address] [place], [address] Blood base excess determinat ionOrdered By: Berry Waldrop on 04-15-2025 Base excess Calc (BldV) [Moles/Vol] -1 mmol/L -2-2 [facility] Blood bicarbonate measuremen tOrdered By: Berry Waldrop on 04-15-2025 HCO3 (Bld) [Moles/Vol] 20.8 mmol/L Low 22-26 [facility] CBC W/Diff, Automatedon 07- Absolute Lymph 2.26 X10 3/uL Normal 0.83-4.51 [facility] Comment on above: Performed By: #### L 501.080 #### [facility] [address] [place], [address] Absolute Neut 17.1 X10 3/uL High 2.0-7.7 [facility] Comment on above: Performed By: #### L 501.080 #### [facility] [address] [place], [address] Basophils/100 WBC (Bld) 0.4 % Normal 0-1 [facility] Comment on above: Performed By: #### L 501.080 #### [facility] [address] [place], [address] Eosinophils/100 WBC (Bld) 0.2 % Normal 0-5 [facility] Comment on above: Performed By: #### L 501.080 #### [facility] [address] [place], [address] Erythrocyte distribution width (RBC) [Ratio] 12.8 % Normal 11.6-14.6 [facility] Comment on above: Performed By: #### L 501.080 #### [facility] [address] [place], [address] Hematocrit (Bld) [Volume fraction] 45.4 % Normal 37-47 [facility] Comment on above: Performed By: #### L 501.080 #### [facility] [address] [place], [address] Hemoglobin (Bld) [Mass/Vol] 16.3 g/dL High 12.0-15.0 [facility] Comment on above: Performed By: #### L 501.080 #### [facility] [address] [place], [address] IG% 0.700 Normal 0.0-0.9 [facility] Comment on above: Result Comment: IG% - Immature Granulocytes (promyelocytes, myelocytes and metamyelocytes) > 1% indicates that a LEFT SHIFT is Present. Performed By: #### L 501.080 #### [facility] [address] [place], [address] Lymphocytes/100 WBC (Bld) 10.8 % Low 19-41 [facility] Comment on above: Performed By: #### L 501.080 #### [facility] [address] [place], [address] MCH (RBC) [Entitic mass] 29.7 pg Normal 27.0-32.0 [facility] Comment on above: Performed By: #### L 501.080 #### [facility] [address] [place], [address] MCHC (RBC) [Mass/Vol] 35.9 g/dL Normal 32-36 [facility] Comment on above: Performed By: #### L 501.080 #### [facility] [address] [place], [address] MCV (RBC) [Entitic vol] 82.8 fL Normal 81-99 [facility] Comment on above: Performed By: #### L 501.080 #### [facility] [address] [place], [address] Monocytes/100 WBC (Bld) 6.5 % Normal 0-10 [facility] Comment on above: Performed By: #### L 501.080 #### [facility] [address] [place], [address] Neutrophils/100 WBC (Bld) 81.4 % High 47-70 [facility] Comment on above: Performed By: #### L 501.080 #### [facility] [address] [place], [address] Nucleated RBC (Bld) [#/Vol] 0 10*3/uL Normal 0-5 [facility] Comment on above: Performed By: #### L 501.080 #### [facility] [address] [place], [address] Platelet mean volume (Bld) [Entitic vol] 9.4 fL Normal 6.2-12.0 [facility] Comment on above: Performed By: #### L 501.080 #### [facility] [address] [place], [address] Platelets (Bld) [#/Vol] 451 10*3/uL High 150-450 [facility] Comment on above: Performed By: #### L 501.080 #### [facility] [address] [place], [address] RBC (Bld) [#/Vol] 5.48 10*6/uL High 4.2-5.4 [facility] Comment on above: Performed By: #### L 501.080 #### [facility] [address] [place], [address] RDW SD 38.5 fl Normal 35.1-43.9 [facility] Comment on above: Performed By: #### L 501.080 #### [facility] [address] [place], [address] WBC (Bld) [#/Vol] 21.0 10*3/uL High 4.4-11.0 [facility] Comment on above: Performed By: #### L 501.080 #### [facility] [address] [place], [address] Carbon dioxide, total [Moles /volume] in Central venous bloodOrdered By: Berry Waldrop on 04-15-2025 CO2 [Moles/Vol] 21.1 mmol/L 21.0-32.0 [facility] Chloride assayOrdered By: Tanmay Waldrop on 04-15-2025 Chloride [Moles/Vol] 94 mmol/L Low 98-108 [facility] Emergency Department Summary on 04-15-[address] [facility] Medical Records Department [address] [place] [address] Emergency Department Summary 04/15/25 MR#: [id number] Acct: [id number] Name: DEONTE BLANCO Rep #: [id number] : 1955 69 From: Berry Waldrop MD [...] mg PO MOWEFR 07/21/24 12/26/24 08:00 History ([place] Thyroid) insulin glargine 100 unit/mL (3 20 [...] 04/15/25 13: (more content not included)... Normal [facility] Eosinophil percentageOrdered By: Berry Waldrop on 04-15-2025 Eosinophils/100 WBC (Bld) 0.2 % 0-5 [facility] Erythrocyte distribution wid th ratioOrdered By: Berry Waldrop on 04-15-2025 Erythrocyte distribution width (RBC) [Ratio] 12.8 % 11.6-14.6 [facility] Erythrocyte distribution wid th standard deviationOrdered By: Berry Waldrop on 04-15-2025 Erythrocyte distribution width (RBC) [Ratio] 38.5 fl 35.1-43.9 [facility] Glomerular filtration rate ( GFR) estimation/1.73 sq m using serum, plasma, or whole bOrdered By: Berry Waldrop on 04-15-2025 GFR/1.73 sq M.predicted among non-blacks MDRD (S/P/Bld) [Vol rate/Area] 94 mL/min/{1.73_m2} >60 [facility] Comment on above: mL/min/1.73m2 CKD-EP I Creatinine Equation (2020) [facility] deOrdered By: Berry Waldrop on 04-15-2025 Glucose [Mass/Vol] 260 mg/dL High 74-106 [facility] Comment on above: MANAGEMENT OF PATIEN T CARE PER NURSING PROTOCOL Glucose [Mass/Vol] 269 mg/dL High 74-106 [facility] Comment on above: MANAGEMENT OF PATIEN T CARE PER NURSING PROTOCOL Hematocrit Auto (Bld) [Volum e fraction]Ordered By: Berry Waldrop on 04-15-2025 Hematocrit (Bld) [Volume fraction] 45.4 % 37-47 [facility] Hemoglobin measurementOrdere d By: Berry Waldrop on 04-15-2025 Hemoglobin (Bld) [Mass/Vol] 16.3 g/dL High 12.0-15.0 [facility] Hyaline casts LM.LPF (Urine sed) [#/Area]Ordered By: Berry Waldrop on 04-15-2025 Hyaline casts (Urine sed) [#/Area] 5 /[LPF] 0-5 [facility] Immature granulocytes/100 WB C Auto (Bld)Ordered By: Berry Waldrop on 04-15-2025 Immature granulocytes/100 WBC (Bld) 0.700 % 0.0-0.9 [facility] Comment on above: IG% - Immature Granu locytes (promyelocytes, myelocytes and metamyelocytes) > 1% indicates that a LEFT SHIFT is Present. Ketones Test strip Ql (U)Ord ered By: Berry Waldrop on 04-15-2025 Ketones Ql (U) 50 mg/dl High Negative [facility] MCV (mean corpuscular volume ) determinationOrdered By: Berry Waldrop on 04-15-2025 MCV (RBC) [Entitic vol] 82.8 fL 81-99 [facility] Mean corpuscular hemoglobin (MCH) determinationOrdered By: Berry Waldrop on 04-15-2025 MCH (RBC) [Entitic mass] 29.7 pg 27.0-32.0 [facility] Mean corpuscular hemoglobin concentration (MCHC) determinationOrdered By: Berry Waldrop on 04-15-2025 MCHC (RBC) [Mass/Vol] 35.9 g/dL 32-36 [facility] Mean platelet volume determi nationOrdered By: Berry Waldrop on 04-15-2025 Platelet mean volume (Bld) [Entitic vol] 9.4 fL 6.2-12.0 [facility] Measurement, pHOrdered By: Vanita Waldrop on 04-15-2025 pH (Unsp spec) 7.59 [pH] High 7.35-7.45 [facility] Microscopic analysis of urin e for red blood cells (RBC)Ordered By: Berry Waldrop on 04-15-2025 Microscopic analysis of urine for red blood cells (RBC) 0 SEEN /hpf 0-5 [facility] Monocyte percentageOrdered B y: Berry Waldrop on 04-15-2025 Monocytes/100 WBC (Bld) 6.5 % 0-10 [facility] Mucus LM Ql (Urine sed)Order ed By: Berry Waldrop on 04-15-2025 Mucus Ql (Urine sed) 0 SEEN /hpf [facility] Neutrophil percentageOrdered By: Berry Waldrop on 04-15-2025 Neutrophils/100 WBC (Bld) 81.4 % High 47-70 [facility] Nitrite Test strip Ql (U)Ord ered By: Berry Waldrop on 04-15-2025 Nitrite Ql (U) Negative Negative [facility] No Panel InformationOrdered By: Berry Waldrop on 04-15-2025 Blood Gas Sample Site L Radial [facility] Blood Gas Specimen Type ART [facility] Blood Gas Vent Mode Not entered [facility] Oxygen Delivery Device Room Air [facility] Nucleated red blood cell per centageOrdered By: Berry Waldrop on 04-15-2025 Nucleated RBC/100 WBC (Bld) [Ratio] 0 % 0-5 [facility] Platelet countOrdered By: Tanmay Waldrop on 04-15-2025 Platelets (Bld) [#/Vol] 451 10*3/uL High 150-450 [facility] Potassium measurement (mass/ volume)Ordered By: Berry Waldrop on 04-15-2025 Potassium (Unsp spec) [Mass/Vol] 3.5 mmol/L 3.3-5.1 [facility] Comment on above: Hemolysis present, R esults could be affected. Protein Test strip Ql (U)Ord ered By: Berry Waldrop on 04-15-2025 Protein Ql (U) 30 mg/dl High Negative [facility] RBC Auto (Bld) [#/Vol]Ordere d By: Berry Waldrop on 04-15-2025 RBC (Bld) [#/Vol] 5.48 10*6/uL High 4.2-5.4 [facility] Serum creatinine measurement (mass/volume)Ordered By: Berry Waldrop on 04-15-2025 Creatinine [Mass/Vol] 0.69 mg/dL Low 0.70-1.20 [facility] Serum glucose measurement (m ass/volume)Ordered By: Berry Waldrop on 04-15-2025 Glucose [Mass/Vol] 264 mg/dL High 70-99 [facility] Serum or plasma calcium mulugeta urement (mass/volume)Ordered By: Berry Waldrop on 04-15-2025 Calcium [Mass/Vol] 9.3 mg/dL 7.6-11.0 [facility] Serum or plasma urea nitroge n measurement (mass/volume)Ordered By: Berry Waldrop on 04-15-2025 Urea nitrogen [Mass/Vol] 21 mg/dL High 4-19 [facility] Sodium levelOrdered By: Berry Waldrop on 04-15-2025 Sodium [Moles/Vol] 130 mmol/L Low 133-145 [facility] Squamous epithelial cells de tection in urine sediment by light microscopyOrdered By: Berry Waldrop on 04-15-2025 Epithelial cells.squamous LM Ql (Urine sed) 5-10 SEEN /hpf 5-10 [facility] Total carbon dioxide measure mentOrdered By: Berry Waldrop on 04-15-2025 CO2 [Moles/Vol] 22 mmol/L [facility] Urinalysis, Completeon 04-15 CAST,HYALINE 5-10 SEEN Normal 0-5 [facility] Comment on above: Order Comment: COLLE CTOR TO SPECIFY Performed By: #### L 501.080 #### [facility] [address] [place], [address] BACTERIA 1+ /hpf Normal None Seen [facility] Comment on above: Order Comment: COLLE CTOR TO SPECIFY Performed By: #### L 501.080 #### [facility] [address] [place], [address] EPI,SQUAMOUS 5-10 SEEN Normal 5-10 [facility] Comment on above: Order Comment: ELVIA CTOR TO SPECIFY Performed By: #### L 501.080 #### [facility] [address] [place], [address] WBC 0-5 SEEN Normal 0-5 [facility] Comment on above: Order Comment: ELVIA CTOR TO SPECIFY Performed By: #### L 501.080 #### [facility] [address] [place], [address] Mucus Ql (Urine sed) 0 SEEN Normal [facility] Comment on above: Order Comment: ELVIA CTOR TO SPECIFY Performed By: #### L 501.080 #### [facility] [address] [place], [address] RBC 0 SEEN Normal 0-5 [facility] Comment on above: Order Comment: COLLE CTOR TO SPECIFY Performed By: #### L 501.080 #### [facility] [address] [place], [address] Urine clarityOrdered By: Bryan Waldrop on 04-15-2025 Clarity (U) Sl. Cloudy Clear [facility] Urine color determinationOrd ered By: Berry Waldrop on 04-15-2025 Color (U) Yellow Yellow [facility] Urine glucose detectionOrder ed By: Berry Waldrop on 04-15-2025 Glucose Ql (U) 1000 mg/dl High Normal [facility] Urine leukocyte esterase det ection by dipstickOrdered By: Berry Waldrop on 04-15-2025 Leukocyte esterase Test strip Ql (U) Negative Negative [facility] Urine pHOrdered By: Berry minaya on 04-15-2025 pH (U) 6.0 [pH] 5.0 - 8.0 [facility] Urine sediment bacteria coun t by microscopy (number/high power field)Ordered By: Berry Waldrop on 04-15-2025 Bacteria LM.HPF (Urine sed) [#/Area] 1 /[HPF] None Seen [facility] Urine specific gravity measu rementOrdered By: Berry Waldrop on 04-15-2025 Specific gravity (U) [Rel density] 1.015 1.002-1.03 0 [facility] Urine urobilinogen measureme ntOrdered By: Berry Waldrop on 04-15-2025 Urobilinogen Ql (U) Normal mg/dl Normal [facility] White blood cell (WBC) count Ordered By: Berry Waldrop on 04-15-2025 WBC (Bld) [#/Vol] 21.0 10*3/uL High 4.4-11.0 [facility] White blood cell countOrdere d By: Berry Waldrop on 04-15-2025 White blood cell count 0-5 SEEN /hpf 0-5 [facility] CNPNon 04-06-2025 CNPN Telephone (FAMWS) DEONTE BLANCO ([id number]) 1955 F Date Time Provider Department 04/06/25 [facility] During your visit today, we recorded the following information about you: Lisa Aparicio RN 04/06/2025 10:40 AM Signed PRIOR AUTHORIZATION Medication for Prior Authorization: [facility] [facility] Insurance Company: [facility] Medicare Patient insurance ID number: [id number] OLVIN Whitfield Janice, LPN 04/06/2025 11:00 AM Signed Electronic PA requested for both doses 120mg and 30 mg Liz Richards LPN 04/06/2025 11:24 AM Signed PA completed with both doses. Liz Richards LPN 04/06/2025 1:46 PM Signed This was denied last year and again this year. ote from payer: Request Reference Number: [id number]. ARMOUR THYRO TAB 120MG is denied for not meeting the prior authorization requirement(s). Details of this decision are in the notice attached below or have been faxed to you. Payer: [email or web address] PBM Part D [phone] Electronic appeal: Not supported Appeal instructions: Appeals are not supported through ePA. Please refer to the fax case notice for appeals information and instructions. View History Notes Time User Attachment Attachment received from payer. 04/06/2025 1:43 PM Cchs, Rx Priorauth In Document Pharmacy Benefits Open Encounter TrackViaDEONTE DEE - [facility] ([facility]) Covered: Retail, Mail Order Unknown: Specialty, Long-Term Care BIN: [id number] : 1955 Group ID: [id number] PCN: [id number] Legal sex: F Group name: COMM[employer] Address: [address] [place] [address] Medication Being Authorized ARMOUR THYROID 120 mg tablet Take 1 tablet PO daily in AM Dispense: 90 tablet Refills: 1 TRACEY Start: 01/20/2025 Class: Normal Diagnoses: Acquired hypothyroidism This order has been released to its destination. To be filled at: [facility] [address] [place] [address] [address] [facility] - [phone] Prior Authorization History for ARMOUR THYROID 120 [...] - Uncontrolled E11.65 Insulin: Yes - Insulin [place], Disposable, (BD ULTRA-FINE MARIA T PEN NEEDLE) [...] Of D (more content not included)... Normal [facility] CBC W Auto Differential pane l (Bld)on 03-29-2025 Basophils (Bld) [#/Vol] 0.06 10*3/uL Normal <0.[address] [facility] Comment on above: Order Comment: Speci men Type: BLOOD SPECIMENOrdering Facility: [facility] Address: [address] [place] [address] Performed By: #### 5 7021-8 ####[facility] LABCLIA [id number] [place] [address] [place] Basophils/100 WBC (Bld) 0.6 % Normal [facility] Comment on above: Order Comment: Speci men Type: BLOOD SPECIMENOrdering Facility: [facility] Address: [address] [place] [address] Performed By: #### 5 7021-8 ####[facility]CLIA [id number] [place] [address] [place] Differential cell count method Nom (Bld) Auto Normal [facility] Comment on above: Order Comment: Speci men Type: BLOOD SPECIMENOrdering Facility: [facility] Address: [address] [place] [address] Performed By: #### 5 7021-8 ####[facility] LABCLIA [id number] [place] [address] [place] Eosinophils (Bld) [#/Vol] 0.24 10*3/uL Normal <0.[address] [facility] Comment on above: Order Comment: Speci men Type: BLOOD SPECIMENOrdering Facility: [facility] Address: [address] [place] [address] Performed By: #### 5 7021-8 ####[facility] LABCLIA [id number] [facility] [place] [address] [place] Eosinophils/100 WBC (Bld) 2.2 % Normal [facility] Comment on above: Order Comment: Speci men Type: BLOOD SPECIMENOrdering Facility: [facility] Address: [address] [place] [address] Performed By: #### 5 7021-8 ####[facility] LABCLIA [id number] [address], [place] [address] [place] Erythrocyte distribution width (RBC) [Ratio] 12.8 % Normal 11.5-15.[address] [facility] Comment on above: Order Comment: Speci men Type: BLOOD SPECIMENOrdering Facility: [facility] Address: [address] [place] [address] Performed By: #### 5 7021-8 ####[facility] LABCLIA [id number] [address] [place] Hematocrit (Bld) [Volume fraction] 40.0 % Normal 36.0-46.[address] [facility] Comment on above: Order Comment: Speci men Type: BLOOD SPECIMENOrdering Facility: [facility] Address: [address] [place] [address] Performed By: #### 5 7021-8 ####[facility] LABCLIA [id number] [place] [id number] [place] Hemoglobin (Bld) [Mass/Vol] 13.9 g/dL Normal 11.5-15.[address] [facility] Comment on above: Order Comment: Speci men Type: BLOOD SPECIMENOrdering Facility: [facility] Address: [address] [place] [address] Performed By: #### 5 7021-8 ####[facility]CLIA [id number] [place] [address] [place] Immature granulocytes (Bld) [#/Vol] 0.06 10*3/uL Normal <0.[address] [facility] Comment on above: Order Comment: Speci men Type: BLOOD SPECIMENOrdering Facility: [facility] Address: [address] [place] [address] Performed By: #### 5 7021-8 ####[facility]CLIA [id number] [facility] [address] [place] [facility] Immature granulocytes/100 WBC (Bld) 0.6 % Normal [facility] Comment on above: Order Comment: Speci men Type: BLOOD SPECIMENOrdering Facility: [facility] Address: [address] [place] [address] Performed By: #### 5 7021-8 ####[facility] LABCLIA [id number] [place] [id number] [place] Lymphocytes (Bld) [#/Vol] 2.27 10*3/uL Normal 1.00-4.[address] [facility] Comment on above: Order Comment: Speci men Type: BLOOD SPECIMENOrdering Facility: [facility] Address: [address] [place] [address] Performed By: #### 5 7021-8 ####[facility] LABCLIA [id number] [facility] [place] [id number] [place] Lymphocytes/100 WBC (Bld) 21.0 % Normal [facility] Comment on above: Order Comment: Speci men Type: BLOOD SPECIMENOrdering Facility: [facility] Address: [address] [place] [address] Performed By: #### 5 7021-8 ####[facility]CLIA [id number] [facility] AVENUEDESK [id number] [place] [address] MCH (RBC) [Entitic mass] 30.5 pg Normal 26.0-34.[address] [facility] Comment on above: Order Comment: Speci men Type: BLOOD SPECIMENOrdering Facility: [facility] Address: [address] [place] [address] Performed By: #### 5 7021-8 ####[facility] LABCLIA [id number] [place] [address] [place] MCHC (RBC) [Mass/Vol] 34.8 g/dL Normal 30.5-36.0 [facility] Comment on above: Order Comment: Speci men Type: BLOOD SPECIMENOrdering Facility: [facility] Address: [address] [place] [address] Performed By: #### 5 7021-8 ####[facility] LABCLIA [id number] [place] [address] [place] MCV (RBC) [Entitic vol] 87.9 fL Normal 80.0-100.[address] [facility] Comment on above: Order Comment: Speci men Type: BLOOD SPECIMENOrdering Facility: [facility] Address: [address] [place] [address] Performed By: #### 5 7021-8 ####[facility] LABCLIA [id number] [place] [address] [place] Monocytes (Bld) [#/Vol] 0.75 10*3/uL Normal <0.[address] [facility] Comment on above: Order Comment: Speci men Type: BLOOD SPECIMENOrdering Facility: [facility] Address: [address] [place] [address] Performed By: #### 5 7021-8 ####[facility] LABCLIA [id number] [place] [id number] [place] Monocytes/100 WBC (Bld) 6.9 % Normal [facility] Comment on above: Order Comment: Speci men Type: BLOOD SPECIMENOrdering Facility: [facility] Address: [address] [place] [address] Performed By: #### 5 7021-8 ####[facility] LABCLIA [id number] [place] [address] [place] Neutrophils (Bld) [#/Vol] 7.45 10*3/uL Normal 1.45-7.[address] [facility] Comment on above: Order Comment: Speci men Type: BLOOD SPECIMENOrdering Facility: [facility] Address: [address] [place] [address] Performed By: #### 5 7021-8 ####[facility] LABCLIA [id number] [place] [address] [place] Neutrophils/100 WBC (Bld) 68.7 % Normal [facility] Comment on above: Order Comment: Speci men Type: BLOOD SPECIMENOrdering Facility: [facility] Address: [address] [place] [address] Performed By: #### 5 7021-8 ####[facility] LABCLIA [id number] [place] [address] [place] Nucleated RBC (Bld) [#/Vol] 10*3/uL Normal <0.[address] [facility] Comment on above: Order Comment: Speci men Type: BLOOD SPECIMENOrdering Facility: [facility] Address: [address] [place] [address] Performed By: #### 5 7021-8 ####[facility] LABCLIA [id number] [place] [id number] [place] Nucleated RBC/100 WBC (Bld) [Ratio] 0.0 /100 WBC Normal [facility] Comment on above: Order Comment: Speci men Type: BLOOD SPECIMENOrdering Facility: [facility] Address: [address] [place] [address] Performed By: #### 5 7021-8 ####[facility] LABCLIA [id number] [place] [address] [place] Platelet mean volume (Bld) [Entitic vol] 9.7 fL Normal 9.0-12.[address] [facility] Comment on above: Order Comment: Speci men Type: BLOOD SPECIMENOrdering Facility: [facility] Address: [address] [place] [address] Performed By: #### 5 7021-8 ####[facility] LABIA [id number] [place] [address] [place] Platelets (Bld) [#/Vol] 386 10*3/uL Normal 150-[address] [facility] Comment on above: Order Comment: Speci men Type: BLOOD SPECIMENOrdering Facility: [facility] Address: [address] [place] [address] Performed By: #### 5 7021-8 ####[facility] LABIA [id number] [place] [address] [place] RBC (Bld) [#/Vol] 4.55 10*6/uL Normal 3.90-5.20 [facility] Comment on above: Order Comment: Speci men Type: BLOOD SPECIMENOrdering Facility: [facility] Address: [address] [place] [address] Performed By: #### 5 7021-8 ####[facility] LABIA [id number] [place] [id number] [place] WBC (Bld) [#/Vol] 10.83 10*3/uL Normal 3.70-11.00 [facility] Comment on above: Order Comment: Speci men Type: BLOOD SPECIMENOrdering Facility: [facility] Address: [address] [place] [address] Performed By: #### 5 7021-8 ####[facility] LABIA [id number] [place] [id number] [place] Iron and Iron binding capaci ty panelon 03-29-2025 Iron [Mass/Vol] 69 ug/dL Normal 41-[address] [facility] Comment on above: Order Comment: Speci men Type: BLOOD SPECIMENOrdering Facility: [facility] Address: [address] [place] [address] Performed By: #### 2 4362-6, 3084-1, 2730-8, 14569-4 ####[facility] LABCLIA [id number] [place] [id number] [place] Iron binding capacity [Mass/Vol] 375 ug/dL Normal 232-[address] [facility] Comment on above: Order Comment: Speci men Type: BLOOD SPECIMENOrdering Facility: [facility] Address: [address] [place] [address] Performed By: #### 2 4362-6, 3084-1, 8, 47829-3 ####[facility] LABCLIA [id number] [place] [id number] [place] Iron/TIBC [Molar ratio] 18.4 % Normal 15.0-57.[address] [facility] Comment on above: Order Comment: Speci men Type: BLOOD SPECIMENOrdering Facility: [facility] Address: [address] [place] [address] Performed By: #### 2 4362-6, 3084-1, 8, 32870-5 ####[facility] LABCLIA [id number] [place] [id number] [place] [facility] UPMCon - Parathyrin.intact [Mass/Vol] 40 pg/mL Normal 15-[address] [facility] Comment on above: Order Comment: Noryi men Type: BLOOD SPECIMENOrdering Facility: [facility] Address: [address] [place] [address] Performed By: #### 2 4362-6, 3084-1, 2730-8, 74793-8 ####[facility] LABCLIA [id number] [place] [id number] [place] Prot/Creat Uron 03-29-2025 Protein/Creatinine (U) [Mass ratio] 0.08 mg/mg Normal <0.[address] [facility] Comment on above: Order Comment: Speci men Type: URINE SPECIMENOrdering Facility: [facility] Address: [address] [place] [address] Result Comment: Adul t Proteinuria Categories: <0.15 mg/mg is considered normal to mildly increased 0.15 - 0.50 mg/mg is considered moderately increased >0.50 mg/mg is considered severely increased KDIGO. (2013). KDIGO 2012 Clinical Practice Guideline for the Evaluation and Management of Chronic Kidney Disease. Official Journal of the International Society of Nephrology, 3(1), 1-150. Performed By: #### 2 890-2 ####[facility] LABIA [id number] [place] [id number] [place] Protein/Creatinine (U) [Mass ratio]on 03-29-2025 Creatinine (U) [Mass/Vol] 73.3 mg/dL Normal 20.0-300.[address] [facility] Comment on above: Order Comment: Speci men Type: URINE SPECIMENOrdering Facility: [facility] Address: [address] [place] [address] Performed By: #### 2 890-2 ####[facility] LABIA [id number] [place] [id number] [place] Protein (U) [Mass/Vol] 6 mg/dL Normal 0-20 [facility] Comment on above: Order Comment: Speci men Type: URINE SPECIMENOrdering Facility: [facility] Address: [address] [place] [address] Performed By: #### 2 890-2 ####[facility] LABIA [id number] [address] [address] [place] Renal function 2000 panelon 03-29-2025 Albumin [Mass/Vol] 4.3 g/dL Normal 3.9-4.9 [facility] Comment on above: Order Comment: Speci men Type: BLOOD SPECIMENOrdering Facility: [facility] Address: [address] [place] [address] Performed By: #### 2 4362-6, 3084-1, 2730-8, 31063-9 ####[facility] LABCLIA [id number] [facility] [address] [address] [place] Anion gap [Moles/Vol] 13 mmol/L Normal 8-15 [facility] Comment on above: Order Comment: Speci men Type: BLOOD SPECIMENOrdering Facility: [facility] Address: [address] [place] [address] Performed By: #### 2 4362-6, 3084-1, 8, 96962-7 ####[facility] LABCLIA [id number] [address] [address] [place] Calcium [Mass/Vol] 9.8 mg/dL Normal 8.5-10.2 [facility] Comment on above: Order Comment: Speci men Type: BLOOD SPECIMENOrdering Facility: [facility] Address: [address] [place] [address] Performed By: #### 2 4362-6, 3084-1, 8, 39026-2 ####[facility] LABCLIA [id number] [facility] [address] [address] [place] Chloride [Moles/Vol] 100 mmol/L Normal 98-107 [facility] Comment on above: Order Comment: Speci men Type: BLOOD SPECIMENOrdering Facility: [facility] Address: [address] [place] [address] Performed By: #### 2 4362-6, 3084-1, 273-8, 04936-7 ####[facility] LABCLIA [id number] [facility] [address] [address] [place] CO2 [Moles/Vol] 23 mmol/L Normal 22-[address] [facility] Comment on above: Order Comment: Speclillian diaz Type: BLOOD SPECIMENOrdering Facility: [facility] Address: [address] [place] [address] Performed By: #### 2 4362-6, 3084-1, 1-8, 04607-4 ####[facility]CLIA [id number] [address] [address] [place] Creatinine [Mass/Vol] 0.64 mg/dL Normal 0.58-0.96 [facility] [facility] Comment on above: Order Comment: Noryi men Type: BLOOD SPECIMENOrdering Facility: [facility] Address: [address] [place] [address] Performed By: #### 2 4362-6, 3084-1, 2730-8, 52073-6 ####[facility] LABCLIA [id number] [place] [id number] [place] Creatinine and Glomerular filtration rate.predicted panel (S/P/Bld) 96 mL/min/1.73m??? Normal >=[address] [facility] Comment on above: Order Comment: Abimbola diaz Type: BLOOD SPECIMENOrdering Facility: [facility] Address: [address] [place] [address] Result Comment: Ana Paula mated Glomerular Filtration [...] Performed By: #### 2 4362-6, 3084-1, 273-8, 26163-0 ####[facility] LABCLIA [id number] [address] [address] [place] Glucose [Mass/Vol] 234 mg/dL High 74-99 [facility] Comment on above: Order Comment: Abimbola diaz Type: BLOOD SPECIMENOrdering Facility: [facility] Address: [address] [place] [address] Result Comment: The [place] Diabetes Association (ADA) provides guidance for cutoff [...] Standards of Medical Care in Diabetes 2016, [place] Diabetes Association. Diabetes Care. 2016.39(Suppl 1). Performed By: #### 2 4362-6, 3084-1, 2730-8, 74032-8 ####[facility] LABCLIA [id number] [place] [address] [place] Phosphate [Mass/Vol] 3.1 mg/dL Normal 2.7-4.8 [facility] Comment on above: Order Comment: Abimbola diaz Type: BLOOD SPECIMENOrdering Facility: [facility] Address: [address] [place] [address] Performed By: #### 2 4362-6, 3084-1, 8, 98595-5 ####[facility] LABCLIA [id number] [place] [id number] [place] Potassium [Moles/Vol] 4.4 mmol/L Normal 3.7-5.1 [facility] Comment on above: Order Comment: Abimbola diaz Type: BLOOD SPECIMENOrdering Facility: [facility] Address: [address] [place] [address] Performed By: #### 2 4362-6, 3084-1, 8, 13855-1 ####[facility] LABCLIA [id number] [address] [address] [place] Sodium [Moles/Vol] 136 mmol/L Normal 136-144 [facility] Comment on above: Order Comment: Speci men Type: BLOOD SPECIMENOrdering Facility: [facility] Address: [address] [place] [address] Performed By: #### 2 4362-6, 3084-1, 8, 31138-1 ####[facility] LABIA [id number] [place] [id number] [place] Urea nitrogen [Mass/Vol] 20 mg/dL Normal 7-[address] [facility] Comment on above: Order Comment: Speci men Type: BLOOD SPECIMENOrdering Facility: [facility] Address: [address] [place] [address] Performed By: #### 2 4362-6, 308-1, 8, 72609-7 ####[facility] LABIA [id number] [place] [id number] [place] Urate SerPl-mCncon Urate [Mass/Vol] 4.1 mg/dL Normal 2.5-6.6 [facility] Comment on above: Order Comment: Speci men Type: BLOOD SPECIMENOrdering Facility: [facility] Address: [address] [place] [address] Performed By: #### 2 4362-6, 308-1, 2731-04, 79685-0 ####[facility] LABIA [id number] [address] [address] [place] C peptide SerPl-mCncon 03-22 C peptide [Mass/Vol] 4.4 ng/mL Normal 1.1-4.4 [facility] Comment on above: Order Comment: Speci men Type: BLOOD SPECIMENOrdering Facility: [facility] Address: [facility] [place] [id number] Performed By: #### 1 986-9 ####[facility] LABJENNIFER [id number] GHADAAraceli PORITLLOFAIRMONT REHABILITATION AND WELLNESS CENTERFranca [address] STATES OF [facility] CNCOon 03-22-2025 CNCO Clinical report post ed in error Letter Text Normal [facility] CNOVon 03-22-2025 CNOV Office Visit (FAMPWS ) DEONTE BLANCO ([id number]) 1955 F Date Time Provider Department 03/22/25 2:00 PM [facility] During your visit today, we recorded the following information about you: Pulse Blood pressure Weight 78/minute 140/70 84.3 kg Liliana Bennett APRN.DRAW FIRE OPERATOR 03/22/2025 8:07 PM Signed This is a [...] she developed pancreatitis. Scheduled f/u appt with Client Technical Support Associate. HISTORY OF PRESENT ILLNESS: Hyperglycemia: - Reports [...] with an orange or apple. - Dinner: Dexter or tuna with broccoli, cauliflower, or [place] sprouts. - Snacks: Granola bars (17 grams [...] as needed (more content not included)... Normal [facility] Comprehensive metabolic 2000 panelon 03-22-2025 Albumin [Mass/Vol] 4.4 g/dL Normal 3.9-4.9 [facility] Comment on above: Order Comment: Speci men Type: BLOOD SPECIMENOrdering Facility: [facility] Address: [address] [place] [address] Performed By: #### 2 4323-8 ####[facility] LABCLIA [id number] [address] [address] [place] ALP [Catalytic activity/Vol] 129 U/L High 34-[address] [facility] Comment on above: Order Comment: Speci men Type: BLOOD SPECIMENOrdering Facility: [facility] Address: [address] [place] [address] Performed By: #### 2 4323-8 ####[facility] LABCLIA [id number] [facility] [place] [id number] [place] ALT [Catalytic activity/Vol] 17 U/L Normal 7-[address] [facility] Comment on above: Order Comment: Speci men Type: BLOOD SPECIMENOrdering Facility: [facility] Address: [address] [place] [address] Performed By: #### 2 4323-8 ####[facility] LABCLIA [id number] [place] [address] [place] Anion gap [Moles/Vol] 13 mmol/L Normal 8-15 [facility] Comment on above: Order Comment: Speci men Type: BLOOD SPECIMENOrdering Facility: [facility] Address: [address] [place] [address] Performed By: #### 2 4323-8 ####[facility] LABCLIA [id number] [place] [address] [place] AST [Catalytic activity/Vol] 18 U/L Normal 13-[address] [facility] Comment on above: Order Comment: Speci men Type: BLOOD SPECIMENOrdering Facility: [facility] Address: [address] [place] [address] Performed By: #### 2 4323-8 ####[facility] LABCLIA [id number] [place] [id number] [place] Bilirubin [Mass/Vol] 0.4 mg/dL Normal 0.2-1.3 [facility] Comment on above: Order Comment: Speci men Type: BLOOD SPECIMENOrdering Facility: [facility] Address: [address] [place] [address] Performed By: #### 2 4323-8 ####[facility] LABCLIA [id number] [facility] [address] [place] [address] [place] Calcium [Mass/Vol] 10.3 mg/dL High 8.5-10.2 [facility] Comment on above: Order Comment: Speci men Type: BLOOD SPECIMENOrdering Facility: [facility] Address: [address] [place] [address] Performed By: #### 2 4323-8 ####[facility] LABCLIA [id number] [place] [id number] [place] Chloride [Moles/Vol] 98 mmol/L Normal 98-107 [facility] Comment on above: Order Comment: Speci men Type: BLOOD SPECIMENOrdering Facility: [facility] Address: [address] [place] [address] Performed By: #### 2 4323-8 ####[facility] LABCLIA [id number] [place] [address] [place] CO2 [Moles/Vol] 24 mmol/L Normal 22-[address] [facility] Comment on above: Order Comment: Speci men Type: BLOOD SPECIMENOrdering Facility: [facility] Address: [address] [place] [address] Performed By: #### 2 4323-8 ####[facility] LABCLIA [id number] [place] [id number] [place] Creatinine [Mass/Vol] 0.69 mg/dL Normal 0.58-0.96 [facility] Comment on above: Order Comment: Speci men Type: BLOOD SPECIMENOrdering Facility: [facility] Address: [address] [place], [place] [address] Performed By: #### 2 4323-8 ####[facility] LABCLIA [id number] [facility] [place] [id number] [place] Creatinine and Glomerular filtration rate.predicted panel (S/P/Bld) 94 mL/min/1.73m??? Normal >=[address] [facility] Comment on above: Order Comment: Abimbola diaz Type: BLOOD SPECIMENOrdering Facility: [facility] Address: [address] [place] [address] Result Comment: Ana Paula mated Glomerular Filtration [...] Performed By: #### 2 4323-8 ####[facility] LABIA [id number] [place] [address] [place] Glucose [Mass/Vol] 171 mg/dL High 74-99 [facility] Comment on above: Order Comment: Abimbola diaz Type: BLOOD SPECIMENOrdering Facility: [facility] Address: [address] [place] [address] Result Comment: The [place] Diabetes Association (ADA) provides guidance for cutoff [...] Standards of Medical Care in Diabetes 2016, [place] Diabetes Association. Diabetes Care. 2016.39(Suppl 1). Performed By: #### 2 4323-8 ####[facility] LABIA [id number] [place] [address] [place] Potassium [Moles/Vol] 4.3 mmol/L Normal 3.7-5.1 [facility] Comment on above: Order Comment: Speci men Type: BLOOD SPECIMENOrdering Facility: [facility] Address: [address] [place] [address] Performed By: #### 2 4323-8 ####[facility] LABCLIA [id number] [place] [address] [place] Protein [Mass/Vol] 7.4 g/dL Normal 6.3-8.0 [facility] Comment on above: Order Comment: Speci men Type: BLOOD SPECIMENOrdering Facility: [facility] Address: [address] [place] [address] Performed By: #### 2 4323-8 ####[facility] LABCLIA [id number] [place] [address] [place] Sodium [Moles/Vol] 135 mmol/L Low 136-144 [facility] Comment on above: Order Comment: Speci men Type: BLOOD SPECIMENOrdering Facility: [facility] Address: [address] [place] [address] Performed By: #### 2 4323-8 ####[facility] LABIA [id number] [place] [address] [place] Urea nitrogen [Mass/Vol] 12 mg/dL Normal 7-[address] [facility] Comment on above: Order Comment: Speci men Type: BLOOD SPECIMENOrdering Facility: [facility] Address: [address] [place] [address] Performed By: #### 2 4323-8 ####[facility] LABIA [id number] [place] [id number] [place] GAD65 Ab Ser-aCncon 03-22-20 25 Glutamate decarboxylase 65 Ab Qn (S) <5.0 Normal <=5.[address] [facility] Comment on above: Order Comment: Speci men Type: BLOOD SPECIMENOrdering Facility: [facility] Address: [address] [place] [address] Result Comment: Anti -glutamic acid decarboxylase antibody [...] is required. Performed By: #### 1 3926-1 ####[facility] LABIA [id number] [place] [address] [place] Glutamate decarboxylase 65 A b Qn (S)on 03-22-2025 GLUTAMIC ACID DECARBOXYLAS AB QUALITATIVE Negative Normal Negative [facility] Comment on above: Order Comment: Abimbola diaz Type: BLOOD SPECIMENOrdering Facility: [facility] Address: [address] [place] [address] Performed By: #### 1 3926-1 ####[facility] [id number] [place] [address] [place] HbA1c (Bld)on 03-22-2025 Average glucose Estimated from glycated hemoglobin (Bld) [Mass/Vol] 183 mg/dL Normal [facility] Comment on above: Order Comment: Abimbola diaz Type: BLOOD SPECIMENOrdering Facility: [facility] Address: [address] [place] [address] Result Comment: eAG: (Estimated average glucose) is a calculated value from HgbA1c and is dealer compliance representative of the average blood glucose level in the last 2-3 month period. Performed By: #### 5 5454-3 ####[facility] [id number] [place] [address] [place] HbA1c (Bld) [Mass fraction] 8.0 % High 4.3-5.[address] [facility] Comment on above: Order Comment: Abimbola diaz Type: BLOOD SPECIMENOrdering Facility: [facility] Address: [address] [place] [address] Result Comment: [place] Diabetes Association guidelines indicate that patients with HgbA1c in the range 5.7-6.4% are at increased risk for development of diabetes, and intervention by lifestyle modification may be beneficial. HgbA1c greater or equal to 6.5% is considered diagnostic of diabetes. Performed By: #### 5 5454-3 ####[facility] LABCLIA [id number] [address] OF [facility] INSULINOMA ASSOCIATED ANTIBO DY 2on 03-22-2025 IA 2 ANTIBODY BLOOD <5.4 Normal <7.5 [facility] Comment on above: Order Comment: Speclillian diaz Type: BLOOD SPECIMENOrdering Facility: [facility] Address: [address] [place] [address] Result Comment: Anti -insulinoma associated antigen 2 (IA-2) antibody test is used as an aid in diagnosis of type I diabetes mellitus, to predict the risk of progression to type I diabetes mellitus among susceptible individuals, and to predict the necessity of insulin therapy in adult-onset diabetes mellitus. Clinical correlation is required. Performed By: #### I A2AB ####[facility] LABCLIA [id number] [address] ISLET CELL ABon 03-22-2025 ISLET CELL AB <1:4 Normal <1:[address] [facility] Comment on above: Order Comment: Abimbola diaz Type: BLOOD SPECIMENOrdering Facility: [facility] Address: [address] [place] [address] Result Comment: INTE RPRETIVE INFORMATION: Islet Cell [...] developed and its performance characteristics determined by [facility]. It has not been cleared or approved by the US Food and Drug Administration. This test was performed in a CLIA certified laboratory and is intended for clinical purposes. Performed By: [facility] [address] [place] [address] Fiber Locking Supervisor: Suresh Rothman MD, PhD CLIA Number: [id number] Performed By: #### I SLET, ZNT8AB ####[facility] [id number] [place] [address] ZINC TRANSPORTER 8 ANTIBODYo n 03-22-2025 ZINC TRANSPORTER 8 ANTIBODY <10.0 Normal 0.0-15.[address] [facility] Comment on above: Order Comment: Speci men Type: BLOOD SPECIMENOrdering Facility: [facility] Address: [facility] [place] [address] Result Comment: INTE RPRETIVE INFORMATION: Zinc Transporter 8 Antibody A value greater than 15.0 Kronus Units/mL is considered positive for the Zinc Transporter 8 Antibody (ZnT8). Kronus Units are arbitrary. Kronus Units = U/mL. This assay is intended for the semi-quantitative determination of antibodies to ZnT8 in human serum. Results should be interpreted within the context of clinical symptoms. Performed By: [facility] [address] [place] [id number] [employer] Lock[employer] Supervisor: Suresh Rothman MD, PhD CLIA Number: [id number] Performed By: #### Lillian SLEKarina, ZNT8AB ####[facility] [id number] [place] [address] [facility] DE[facility] BLAN[facility] ([id number]) 1955 F Date Time Provider Department 03/18/25 [facility] During your visit today, we [...] if Zofran could be sent to [facility]. Pended previous order of Zofran. Message [...] she developed pancreatitis. Scheduled f/u appt with Client Technical Support Associate. Preet Farrar DO 03/20/2025 5:24 PM Signed Patient also has the option to meet with the pharmacist here at [facility] to discuss medication concerns and [...] mg tablet (more content not included)... Normal [facility] 03-16-20[facility] DEONTE BLANCO ([id number]) 1955 F Date Time Provider Department 03/16/25 [facility] During your visit today, we [...] her insulin shot tomorrow morning? Liliana Bennett APRN.[facility] 03/16/2025 2:56 PM Signed If patient doesn't recall if she took the insulin or not, she should not take it and wait until tomorrow. Better for her to be high than to bottom out. Thank you Sofia Rodriguez MA 03/16/2025 3:48 PM Signed Left message to return call Sofia Jennifer LANDEN Gini Martinez LPN 03/17/2025 9:22 AM Signed Spoke [...] Fully Assessed Reason for Visit: Patient Question [3487] Cmt: re: insulin Visit Diagnosis:Ischemic stroke without [...] - Uncontrolled E11.65 Insulin: Yes - Insulin [place], Disposable, (BD ULTRA-FINE MARIA T PEN NEEDLE) [...] [F41.8] 10/12/2018 (more content not included)... Normal [facility] CNOVon 02-17-2025 CNOV Office Visit (FAMPWS ) DEONTE BLANCO ([id number]) 1955 F Date Time Provider Department 02/17/25 [...] conditions. Concerns today: She was seen by Microfilm Duplicating Unit Supervisor Dr. Isaac and states that she didn't [...] differently: Take (more content not included)... Normal [facility] CTA Abdomen W/WO Contraston 02-16-2025 CTA Abdomen W/WO Contrast [facility] [address] [place] [address] CTA Abdomen W/WO Contrast MR#: [id number] Acct: [id number] Name: DEONTE BLANCO Rep #: [id number] : 1955 F 69 From: Catie abbott MD PCP: Dr. Preet Farrar, DO Status: [facility] CLI Study: CTA Abdomen W/WO Contrast Date of Exam: Exam# [id number] Ordering Dr: Julien Reyna MD ADDENDUM by [...] stenosis of the renal arteries. Reading Location: [place] [address] CC: Dr. Julien Reyna MD; Dr. Preet Farrar DO Extrusion Utility Worker: Signed Normal [facility] CNNURSEon 02-14-2025 CNNURSE Nurse Visit (ENDIMT) SUSANADEONTE DEE ([id number]) 1955 F Date Time Provider Department 02/14/25 1:00 PM RODRIGO HOLGUIN During your visit today, we recorded the following information about you: Rodrigo Holguin RN 02/14/2025 1:17 PM Signed DIABETES CARE AND EDUCATION VISIT Location: [place] Type of visit: In person individual PATIENT'S [...] TIME: 12:48 PM Referring Provider: BEAN ISAAC [[id number]] Allergies As of Date: 02/14/2025 Noted Allergy [...] complication, with long-term current use of insulin ([facility]) [E11.59, Z79.4] Order(s):CONSULT TO DIABETES EDUCATION DSME [[id number]] Order #: [id number]: 2 Prescriptions as of 02/14/2025 - ARMOUR [...] on fasting at 8 am - Insulin [place], Disposable, (BD ULTRA-FINE MARIA T PEN NEEDLE) [...] Dx: es (more content not included)... Normal [facility] CNOVon 02-09-2025 CNOV Office Visit (ENWSTR ) DEONTE BLANCO ([id number]) 1955 F Date Time Provider Department 02/09/25 [...] carbs . Lifestyle -Exercise: 30 mins on [employer] daily -Diet: Breakfast: 3 eggs, 1 slice [...] alopecia, excessiv (more content not included)... Normal [facility] GLOOKO ON DEMANDon 5 Ordered by an unspec ified provider. [facility] Ordered by an unspec ified provider. [facility] Ferris Wheel Operator Office Visit Reporton 02-06-2025 Ferris Wheel Operator Office Visit Report [address], [address] [place] [address] OFFICE VISIT Date of Service: 02/06/25 MR#: [id number] Acct: [id number] Name: DEONTE BLANCO Rep #: [id number] : 1955 Provider: Dr. Anushka nolan MD Age/Sex: 69/F [place] [facility] [place]: Signed Intake Vital Signs 09/13/24 13:58 01/26/25 08:18 02/06/25 10:53 Height 5 ft 5 ft 5 ft Weight: 187 lb 4 oz BMI 36.6 BP 136/60 H Intake Visit Reasons: 6 wk TVHBS Butter Printer Required: No Is patient in pain?: No [...] 30 mg PO MOWEFR 07/21/24 02/06/25 History ([place] Thyroid) insulin glargine 100 unit/mL (3 20 [...] children 3 (more content not included)... Normal [facility] Cardiology Visit Reporton Cardiology Visit Report [facility] [address] [place] [address] OFFICE VISIT Date of Service: 01/26/25 MR#: [id number] Acct: [id number] Name: DEONTE BLANCO Rep #: [id number] : 1955 Provider: Dr. Julien Reyna MD Age/Sex: 69/F Location: [facility] Status: Signed HPI HPI History of Present [...] NIBP Intake Visit Reasons: 6 M FU Butter Printer Required: No Accompanied by: Self Is patient [...] 30 mg PO MOWEFR 07/21/24 01/26/25 History ([place] Thyroid) insulin glargine 100 unit/mL (3 20 [...] usually santos (more content not included)... Normal [facility] Ferris Wheel Operator Office Visit Reporton 01-09-2025 Ferris Wheel Operator Office Visit Report [facility] [address], [address] [place] [address] OFFICE VISIT Date of Service: 01/09/25 MR#: [id number] Acct: [id number] Name: DENOTE BLANCO Rep #: [id number] : 1955 Provider: Dr. Anushka nolan MD Age/Sex: 69/F [place] [facility] [place]: Signed Intake Vital Signs 09/13/24 13:58 12/27/24 18:19 01/09/25 11:11 01/09/25 11:13 Height 5 ft 5 ft 5 ft 5 ft Weight: 185 lb 6 oz BMI 36.1 BP 145/87 H Intake Visit Reasons: 2 wk TVHBS Butter Printer Required: No Is patient in pain?: No [...] 30 mg PO MOWEFR 07/21/24 12/27/24 History ([place] Thyroid) glimepiride 2 mg tablet 3 mg [...] of l (more content not included)... Normal [facility] 12-29-2024 CNPN Telephone (FAMPWS) DEONTE BLANCO ([id number]) 1955 F Date Time Provider Department 12/29/24 [...] stated the call had been handled through [employer] chat. No notes in triage with what [...] Fully Assessed Reason for Visit: Patient Question [0657] Prescriptions as of 01/03/2025 - dulaglutide (TRULICITY) [...] on fasting at 8 am - Insulin [place], Disposable, (BD ULTRA-FINE MARIA T PEN NEEDLE) [...] by vaibhav (more content not included)... Normal [facility] Anion gap in Serum or Plasma Ordered By: Anushka Isaac on 12-28-2024 Anion gap [Moles/Vol] 13 mmol/L 5- [facility] BUN/creatinine ratioOrdered By: Anushka Isaac on 12-28-2024 Urea nitrogen/Creatinine [Mass ratio] 25.4 mg/mg High 10-20 [facility] Basic Metabolic Profile (BMP )on 12-28-2024 BUN/CRE 25.4 RATIO High 10-20 [facility] Comment on above: Performed By: #### L 100.0500, L500.2500 #### [facility] [address] [place], [address] Calcium [Mass/Vol] 9.0 mg/dL Normal 7.6-11.0 [facility] Comment on above: Performed By: #### L 100.0500, L500.2500 #### [facility] [address] [place], [address] Chloride [Moles/Vol] 95 mmol/L Low 98-108 [facility] Comment on above: Performed By: #### L 100.0500, L500.2500 #### [facility] [address] [place], [address] CO2 [Moles/Vol] 24.0 mmol/L Normal 21.0-32.0 [facility] Comment on above: Performed By: #### L 100.0500, L500.2500 #### [facility] [address] [place], [address] Creatinine [Mass/Vol] 0.62 mg/dL Low 0.70-1.20 [facility] Comment on above: Performed By: #### L 100.0500, L500.2500 #### [facility] [address] [place], [address] ECRCL 64.10 ml/min Normal 50-250 [facility] Comment on above: Performed By: #### L 100.0500, L500.2500 #### [facility] [address] [place], [address] GAP 13 Normal 5-15 [facility] Comment on above: Performed By: #### L 100.0500, L500.2500 #### [facility] [address] [place], [address] GFR/1.73 sq M.predicted among non-blacks MDRD (S/P/Bld) [Vol rate/Area] 97 mL/min/{1.73_m2} Normal >60 [facility] Comment on above: Result Comment: mL/m in/1.73m2 CKD-EPI Creatinine Equation (2020) Performed By: #### L 100.0500, L500.2500 #### [facility] [address] [place], [address] Glucose [Mass/Vol] 170 mg/dL High 70-99 [facility] Comment on above: Performed By: #### L 100.0500, L500.2500 #### [facility] [address] [place], [address] Potassium [Moles/Vol] 3.8 mmol/L Normal 3.3-5.1 [facility] Comment on above: Performed By: #### L 100.0500, L500.2500 #### [facility] [address] [place], [address] Sodium [Moles/Vol] 132 mmol/L Low 133-145 [facility] Comment on above: Performed By: #### L 100.0500, L500.2500 #### [facility] [address] [place], [address] Urea nitrogen [Mass/Vol] 16 mg/dL Normal 4-19 [facility] Comment on above: Performed By: #### L 100.0500, L500.2500 #### [facility] [address] [place], [address] Bedside Glucoseon 12-28-2024 FINGERSTICK GLU 181 mg/dL High 74-106 [facility] Comment on above: Result Comment: CARIN DYER OF PATIENT CARE PER NURSING PROTOCOL Performed By: #### L 501.080 #### [facility] [address] [place], [address] FINGERSTICK GLU 183 mg/dL High 74-106 [facility] Comment on above: Result Comment: CARIN DYER OF PATIENT CARE PER NURSING PROTOCOL Performed By: #### L 501.080 #### [facility] [address] [place], [address] CBC-Complete Blood Cnt No Di ffon 12-28-2024 Erythrocyte distribution width (RBC) [Ratio] 13.2 % Normal 11.6-14.6 [facility] Comment on above: Performed By: #### L 100.0500, L500.2500 #### [facility] [address] [place], [address] Hematocrit (Bld) [Volume fraction] 38.7 % Normal 37-47 [facility] Comment on above: Performed By: #### L 100.0500, L500.2500 #### [facility] [address] [place], [address] Hemoglobin (Bld) [Mass/Vol] 13.4 g/dL Normal 12.0-15.0 [facility] Comment on above: Performed By: #### L 100.0500, L500.2500 #### [facility] [address] [place], [address] MCH (RBC) [Entitic mass] 30.0 pg Normal 27.0-32.0 [facility] Comment on above: Performed By: #### L 100.0500, L500.2500 #### [facility] [address] [place], [address] MCHC (RBC) [Mass/Vol] 34.6 g/dL Normal 32-36 [facility] Comment on above: Performed By: #### L 100.0500, L500.2500 #### [facility] [address] [place], [address] MCV (RBC) [Entitic vol] 86.8 fL Normal 81-99 [facility] Comment on above: Performed By: #### L 100.0500, L500.2500 #### [facility] [address] [place], [address] Platelet mean volume (Bld) [Entitic vol] 9.8 fL Normal 6.2-12.0 [facility] Comment on above: Performed By: #### L 100.0500, L500.2500 #### [facility] [address] [place], [address] Platelets (Bld) [#/Vol] 332 10*3/uL Normal 150-450 [facility] Comment on above: Performed By: #### L 100.0500, L500.2500 #### [facility] [address] [place], [address] RBC (Bld) [#/Vol] 4.46 10*6/uL Normal 4.2-5.4 [facility] Comment on above: Performed By: #### L 100.0500, L500.2500 #### [facility] [address] [place], [address] RDW SD 41.9 fl Normal 35.1-43.9 [facility] Comment on above: Performed By: #### L 100.0500, L500.2500 #### [facility] [address] [place], [address] WBC (Bld) [#/Vol] 16.8 10*3/uL High 4.4-11.0 [facility] Comment on above: Performed By: #### L 100.0500, L500.2500 #### [facility] [address] [place], [address] Carbon dioxide, total [Moles /volume] in Central venous bloodOrdered By: Anushka Isaac on 12-28-2024 CO2 [Moles/Vol] 24.0 mmol/L 21.0-32.0 [facility] Chloride assayOrdered By: Ton Isaac on 12-28-2024 Chloride [Moles/Vol] 95 mmol/L Low 98-108 [facility] Erythrocyte distribution wid th (RBC) [Ratio]Ordered By: Anushka Isaac on 12-28-2024 Erythrocyte distribution width (RBC) [Entitic vol] 41.9 fL 35.1-43.9 [facility] Erythrocyte distribution wid th ratioOrdered By: Anushka Isaac on 12-28-2024 Erythrocyte distribution width (RBC) [Ratio] 13.2 % 11.6-14.6 [facility] Erythrocyte distribution wid th standard deviationOrdered By: Anushka Isaac on 12-28-2024 Erythrocyte distribution width (RBC) [Ratio] 41.9 fl 35.1-43.9 [facility] Estimation of creatinine siddhartha aranceOrdered By: Anushka Isaac on 12-28-2024 Estimated Creatinine Clearance Calc 64.10 ml/min 50-250 [facility] GFR/1.73 sq M.predicted abdulaziz g non-blacks MDRD (S/P/Bld) [Vol rate/Area]Ordered By: Anushka Isaac on 12-28-2024 Estimated GFR (MDRD) Non-Af Amer 97 >60 [facility] Comment on above: mL/min/1.73m2 CKD-EP I Creatinine Equation (2020) Glomerular filtration rate ( GFR) estimation/1.73 sq m using serum, plasma, or whole bOrdered By: Anushka Isaac on 12-28-2024 GFR/1.73 sq M.predicted among non-blacks MDRD (S/P/Bld) [Vol rate/Area] 97 mL/min/{1.73_m2} >60 [facility] Comment on above: mL/min/1.73m2 CKD-EP I Creatinine Equation (2020) Glucose measurement at bedsi deOrdered By: Anushka Isaac on 12-28-2024 Bedside Glucose (Misc Panel) 181 mg/dL High 74-106 [facility] Comment on above: MANAGEMENT OF PATIEN T CARE PER NURSING PROTOCOL Glucose [Mass/Vol] 181 mg/dL High 74-106 [facility] Comment on above: MANAGEMENT OF PATIEN T CARE PER NURSING PROTOCOL Hematocrit Auto (Bld) [Volum e fraction]Ordered By: Anushka Isaac on 12-28-2024 Hematocrit (Bld) [Volume fraction] 38.7 % 37-47 [facility] Hemoglobin measurementOrdere d By: Anushka Isaac on 12-28-2024 Hemoglobin (Bld) [Mass/Vol] 13.4 g/dL 12.0-15.0 [facility] MCV (mean corpuscular volume ) determinationOrdered By: Anushka Isaac on 12-28-2024 MCV (RBC) [Entitic vol] 86.8 fL 81-99 [facility] Mean corpuscular hemoglobin (MCH) determinationOrdered By: Anushka Isaac on 12-28-2024 MCH (RBC) [Entitic mass] 30.0 pg 27.0-32.0 [facility] Mean corpuscular hemoglobin concentration (MCHC) determinationOrdered By: Anushka Isaac on 12-28-2024 MCHC (RBC) [Mass/Vol] 34.6 g/dL 32-36 [facility] Mean platelet volume determi nationOrdered By: Anushka Isaac on 12-28-2024 Platelet mean volume (Bld) [Entitic vol] 9.8 fL 6.2-12.0 [facility] Platelet countOrdered By: Ton Isaac on 12-28-2024 Platelets (Bld) [#/Vol] 332 10*3/uL 150-450 [facility] Potassium (Unsp spec) [Mass/ Vol]Ordered By: Anushka Isaac on 12-28-2024 Potassium [Moles/Vol] 3.8 mmol/L 3.3-5.1 [facility] Potassium measurement (mass/ volume)Ordered By: Anushka Isaac on 12-28-2024 Potassium (Unsp spec) [Mass/Vol] 3.8 mmol/L 3.3-5.1 [facility] RBC Auto (Bld) [#/Vol]Ordere d By: Anushka Isaac on 12-28-2024 RBC (Bld) [#/Vol] 4.46 10*6/uL 4.2-5.4 [facility] Serum creatinine measurement (mass/volume)Ordered By: Anushka Isaac on 12-28-2024 Creatinine [Mass/Vol] 0.62 mg/dL Low 0.70-1.20 [facility] Serum glucose measurement (m ass/volume)Ordered By: Anushkaangela Isaac on 12-28-2024 Glucose [Mass/Vol] 170 mg/dL High 70-99 [facility] Serum or plasma calcium mulugeta urement (mass/volume)Ordered By: Anushka Isaac on 12-28-2024 Calcium [Mass/Vol] 9.0 mg/dL 7.6-11.0 [facility] Serum or plasma urea nitroge n measurement (mass/volume)Ordered By: Anushka Isaac on 12-28-2024 Urea nitrogen [Mass/Vol] 16 mg/dL 4-19 [facility] Sodium levelOrdered By: Elvis Isaac on 12-28-2024 Sodium [Moles/Vol] 132 mmol/L Low 133-145 [facility] White blood cell (WBC) count Ordered By: Anushka Isaac on 12-28-2024 WBC (Bld) [#/Vol] 16.8 10*3/uL High 4.4-11.0 [facility] Bedside Glucoseon 12-27-2024 FINGERSTICK GLU 231 mg/dL High 74-106 [facility] Comment on above: Result Comment: CARIN GEMENT OF PATIENT CARE PER NURSING PROTOCOL Performed By: #### L 501.080 #### [facility] [address] [facility] [address] FINGERSTICK GLU 299 mg/dL High 74-[address] [place] [address] Comment on above: Result Comment: CARIN GEMENT OF PATIENT CARE PER NURSING PROTOCOL Performed By: #### L 501.080 ####[facility] [id number] [facility] [address] FINGERSTICK GLU 305 mg/dL High [address] [place] [address] Comment on above: Result Comment: CARIN GEMENT OF PATIENT CARE PER NURSING PROTOCOL Performed By: #### L 501.080 #### [facility] [address] [facility] [address] FINGERSTICK GLU 243 mg/dL High 74-106 [facility] Comment on above: Result Comment: CARIN GEMENT OF PATIENT CARE PER NURSING PROTOCOL Performed By: #### L 501.080 #### [facility] [address] [place], [address] FINGERSTICK GLU 222 mg/dL High 74-106 [facility] Comment on above: Result Comment: CARIN GEMENT OF PATIENT CARE PER NURSING PROTOCOL Performed By: #### L 501.080 #### [facility] [address] [place], [address] CBC-Complete Blood Cnt No Di ffon 12-27-2024 Erythrocyte distribution width (RBC) [Ratio] 13.2 % Normal 11.6-14.6 [facility] Comment on above: Performed By: #### L 501.080 #### [facility] [address] [place], [address] Hematocrit (Bld) [Volume fraction] 39.2 % Normal 37-47 [facility] Comment on above: Performed By: #### L 501.080 #### [facility] [address] [place], [address] Hemoglobin (Bld) [Mass/Vol] 13.4 g/dL Normal 12.0-15.0 [facility] Comment on above: Performed By: #### L 501.080 #### [facility] [address] [place], [address] MCH (RBC) [Entitic mass] 29.8 pg Normal 27.0-32.0 [facility] Comment on above: Performed By: #### L 501.080 #### [facility] [address] [place], [address] MCHC (RBC) [Mass/Vol] 34.2 g/dL Normal 32-36 [facility] Comment on above: Performed By: #### L 501.080 #### [facility] [address] [place], [address] MCV (RBC) [Entitic vol] 87.1 fL Normal 81-99 [facility] Comment on above: Performed By: #### L 501.080 #### [facility] [address] [place], [address] Platelet mean volume (Bld) [Entitic vol] 9.6 fL Normal 6.2-12.0 [facility] Comment on above: Performed By: #### L 501.080 #### [facility] [address] [place], [address] Platelets (Bld) [#/Vol] 332 10*3/uL Normal 150-450 [facility] Comment on above: Performed By: #### L 501.080 #### [facility] [address] [place], [address] RBC (Bld) [#/Vol] 4.50 10*6/uL Normal 4.2-5.4 [facility] Comment on above: Performed By: #### L 501.080 #### [facility] [address] [place], [address] RDW SD 41.4 fl Normal 35.1-43.9 [facility] Comment on above: Performed By: #### L 501.080 #### [facility] [address] [place], [address] WBC (Bld) [#/Vol] 15.7 10*3/uL High 4.4-11.0 [facility] Comment on above: Performed By: #### L 501.080 #### [facility] [address] [place], [address] [address]on [address] [facility] Medical Records Department [address] [place] [address] Instructions for Home/Discharge Instructions 12/27/24 1215 MR#: [id number] Acct: [id number] Name: DEONTE BLANCO Rep #: [id number] : 1955 69 From: Anushka Isaac MD [...] Follow Up Care Please Follow Up With: Anuskha Isaac MD Test Results: Test results from this visit will be discussed in further detail at your follow-up appointment, if applicable. Discharge Plan Admission Attending Provider: Anushka Isaac Primary Care Provider: Preet Farrar Instructions Print Language: Citizen [place] Discharge Orders/Prescriptions Prescriptions: New oxycodone-acetaminophen [Percocet] 5-325 [...] pen 20 unit subcut DAILY thyroid (pork) [[place] Thyroid] 30 mg tablet 30 mg PO MOWEFR elderberry fruit 200 mg capsule 1,000 mg PO DAILY Referrals / Follow Up: Preet Farrar DO [Primary Care Provider] - Disposition Disposition (needs filled in before D/C Order can be placed): Home, Self Care 12/27/24 1217 Anuhska Isaac MD CC: Dr. Preet Farrar DO Signed [facility] MR/POSTOP.ANEon 12-27-2024 MR/POSTOP.[facility] Medical Records Department [address] [place] [address] Anesthesia Postop Eval I 12/27/24 1004 MR#: [id number] Acct: [id number] Name: DEONTE BLANCO Rep #: [id number] : 1955 69 From: May Cartwright PCP: Dr. Preet Farrar DO Status:REG SDC Y Race: C Location: [place] [address] Anesthesia: Postop Eval I Current Vital Signs [...] Date May Woods Signature: Date CC: Signed [facility] MR/[id number] 12-27-2024 MR/POSTOPAN2 [facility] Medical Records Department [address] [place] [address] Anesthesia Postop Eval II 12/27/24 1116 MR#: [id number] Acct: [id number] Name: DEONTE BLANCO Rep #: [id number] : 1955 69 From: Mati Ervin MD PCP: Dr. Preet Farrar, DO Status:REG SDC Y Race: C Location: [place] [address] Anesthesia Postop Eval I Sum Postop Eval Completion status Anesthesia document: Postop Eval 1 completed: Yes Anesthesia Postop Eval I Summary Anesthesia Postop Eval I Summary: Anesthesia Postop Eval I: Assessment Summary Airway patent Yes 12/27/24 10:05 EDITOR MAP.GDOTT Spontaneous unlabored Yes 12/27/24 10:05 EDITOR MAP.GDOTT respirations Mental status Awake,Calm 12/27/24 10:05 EDITOR MAP.GDOTT nausea No 12/27/24 10:05 EDITOR MAP.GDOTT Vomiting No 12/27/24 10:05 EDITOR MAP.GDOTT Anesthesia Postop Eval I: Fluid Summary Crystalloid volume administer 700 12/27/24 10:05 EDITOR MAP.GDOTT (ml) Colloids volume administered ( ml) Blood Product volume administered (ml) Total IV fluid infused 700 12/27/24 10:05 EDITOR MAP.GDOTT Anesthesia Postop Eval I: Summary Notes Anesthesia Complication No 12/27/24 10:05 EDITOR MAP.GDOTT Anesthesia Complication Comment: Post-operative progress note Anesthesia: Postop Eval II Evaluation Mental status: Awake and Calm Pain Level: 2 nausea: No Vomiting: No Complications Anesthesia Complication: No 12/27/24 1117 Date Mati Ervin MD Cosigner Signature: Date CC: Signed [facility] Operative Reporton 5 Operative Report [facility] Medical Records Department [address] [place] [address] Operative Report 12/27/24 1212 MR#: [id number] Acct: [id number] Name: SCHDEONTE DEE Rep #: [id number] : 1955 69 From: Anushka Isaac MD PCP: Dr. Preet Farrar, DO Status:[facility] Location: [place] [address] Problems Associated Problem List Diagnoses (1) Endometrial hyperplasia without atypia: Multi Select Codes Urinary/Genital Urinary/Genital CPT Codes: 84719 TVH <250 gr uterus Operative Report (Standard) Operative Information Date of Procedure: 12/27/24 Pre-Operative Diagnosis: see problem list details Post-Operative Diagnosis: same Surgery/Procedure Performed: total vaginal hysterectomy shiftman: Yes Rand Sewer: Isha Valderrama Tasks completed by agency sales management assistant: Opening closing and Retracting Type of [...] was noted. The vagina was closed with [id number]-[id number] 0 Vicryl pop offs including the posterior and anterior peritoneum in the reapproximation. Excellent hemostasis was noted. All instruments removed from the vagina clear urine was noted at the end of the procedure. Surgical Findings: nl uterus and ovaries. Complications Complications: No 12/27/24 1215 Cosigner Signature (if applicable): CC: Dr. Preet Farrar DO; Dr. Anushka Isaac MD Signed [facility] Surgery Specimen Level Von 0 12-27-2024 Surgery Specimen Level V Patient Age/Sex Location Account Attending Physician DEONTE BLANCO 69/F MS3 [id number] Dr. Anushka Isaac MD Specimen: [id number] Received: 12/27/24 Status: ROSALINA Leonard Num: [id number] Spec Type: HYSTERECT Subm Dr: Dr. Anushka [...] whorled nodule with no hemorrhage or necrosis. Director Of Pharmacy sections:A1. Cervix and lower uterine segment bisected [...] Account Attending Physician DEONTE BLANCO 69/F MS3 [id number] Dr. Anushka Isaac MD superficial section of remainder of smaller polyp (from more disrupted half)A6. Remainder of endometrium from more disrupted half (superficial sections x 3)A7. Full-thickness section with myometrial nodule from less disrupted halfA8-9. Entirety of endometrial cavity from last disrupted half (superficial sections) submitted sequentially from fundus to lower uterine segment NOTE: [place] ink does not indicate margin [facility] 12-27-2024 CPT:56737 Patient Age/Sex Location Account Attending Physician DEONTE BLANCO 69/F MS3 [id number] Dr. Anushka Isaac MD Signed (signature on file) Dr. Yennifer Rodriguez MD 01/10/25 1138 Normal [facility] Comment on above: Performed By: #### L 501.080 #### [facility] [address] [place], [address] CNPNon 12-21-2024 CNPN Telephone (FAMPWS) DEONTE BLANCO ([id number]) 1955 F Date Time Provider Department 12/21/24 [facility] During your visit today, we recorded the following information about you: Chelo Prasad RN 12/21/2024 9:38 AM Signed Patient calling in and states she needs a prior authorization for her lantus insulin, as ordered 10/07/24, per [facility]. Prior authorization requested for the following medication: Medication: insulin glargine (lantus solostar) 100 unit/mL Provider: Dr. Farrar Insurance Company Name: [facility] Medicare Pharmacy Name: [facility] [place] [facility] Telephone number: [phone] Please call patient once an update has been received. OLVIN Mujica Elizabeth, MA 12/21/2024 10:51 AM Signed No PA needed covered. [facility] [employer] who did for brand lantus and is [...] on fasting at 8 am - Insulin [place], Disposable, (BD ULTRA-FINE MARIA T PEN NEEDLE) [...] (HCC) [E1 (more content not included)... Normal [facility] DEONTE BLANCO ([id number]) 1955 F Date Time Provider Department 12/19/24 [facility] During your visit today, we recorded [...] hold Plavix. Patient requests call back at [phone]. OLVIN Livingston Jordan L, DO 12/19/2024 5:08 [...] Fully Assessed Reason for Visit: Patient Question [9069] Upcoming Surgery [Other] Prescriptions as of 12/19/2024 [...] on fasting at 8 am - Insulin [place], Disposable, (BD ULTRA-FINE MARIA T PEN NEEDLE) [...] ulcerative col (more content not included)... Normal [facility] Electrocardiogram reportOrde red By: Jamel Gray on 12-16-2024 EKG study [facility] Cardiovascular Services [address] [place] [address] 12 Lead EKG 12/15/24 1226 MR#: [id number] Acct: [id number] Name: DEONTE BLANCO Rep #:[id number] : 1955 69 From: Jamel Gray MD Attending Dr: Dr. Anushka Isaac MD Status: PRE SDC Ordering Dr: Anushka Isaac MD Cecil e: 12/15/24 Location: [facility] Sex: F C Admitted: Test Reason : PREOP Blood Pressure : */* mmHG Vent. Rate : 67 BPM Atrial Rate : 67 BPM P-R Int : 208 ms QRS Dur : 86 ms QT Int : 390 ms P-R-T Axes : * 8 2 degrees QTcB Int : 412 ms Normal sinus rhythm Normal ECG Confirmed by JAMEL GRAY MD ([id number]), order editor ANNMARIE GANT ([id number]) on 55:50:15 AM Referred By: Anushka Isaac Confirmed By: JAMEL GRAY MD 12/16/24 0550 Date _ Jamel Gray MD CC: Dr. Preet Farrar DO; Dr. Anushka Isaac MD ~ [facility] Work Phone: MR/PATTom 12-16-2024 /[facility] Medical Records Department [address] [place] [address] PAT - Anesthesia 12/16/24 1201 MR#: [id number] Acct: [id number] Name: DEONTE BLANCO Rep #: [id number] : 1955 69 From: Ezio Tavera MD PCP: Dr. 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 Hx Hospitalization No 12/13/24 09:23 Any Problems [...] take am of surgery PONV PONV - 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: PONV - 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 Female Yes 12/13/24 09:23 HX of Motion Sickness No 12/13/24 09:23 HX of N/V After Surgery Yes 12/13/24 09:23 Non-Smoker Yes 12/13/24 09:23 Duration of Surgery greater Yes 12/13/24 09:23 than 60 minutes Number of Risk Factors 4 12/13/24 09:23 PONV Score Severe Risk 12/13/24 09:23 Height Weight Height Weight: Anesthesia: Height Weight Height 5 ft 09/13/24 13:58 Respiratory Assessment Respiratory Assessment - 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: Respiratory Tract Infection Hx - 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 Hx Respiratory Tract Infection No 12/13/24 09:23 STOP Sleep Apnea STOP Sleep Apnea - 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: STOP Sleep Apnea - 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 Hx Hypertension Yes: CONTROLLED WITH MED 12/13/24 [...] 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: 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 Tobacco Use Cigarettes 06/13/24 15:14 Smoking Status Former smoker 12/13/24 09:23 Hx Tobacco Use Yes: marijuana 12/13/24 09:23 Years Smoking Packs Smoked per Day Smoking Cessation Date was Yes - quit smoking within 15 12/13/24 09:23 within the last 15 years years Hx Smoking Cessation Date 10/29/22 12/13/24 09:23 Hx Smoking Cessation No 12/13/24 09:23 Counseling Hematologic Medial History 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: Hematologic 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 assistant Hx of Blood Transfusion No 12/13/24 09:23 [...] confused, unrespo /Reproduction History /Reproductive History - 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: /Reproductive Hx- 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 Hx Now No 12/13/24 09:23 Gestational Age (in weeks): EDC: Hx Hx Para Hx Section SAB No 12/13/24 09:23 [facility] Medical History (Updated 12/13/24 @ 09:35 by [...] carotid artery (more content not included)... Normal [facility] 12 Lead EKGon 12-15-2024 12 Lead EKG [facility] Cardiovascular Services [address] [place] [address] 12 Lead EKG 12/15/24 1226 MR#: [id number] Acct: [id number] Name: DEONTE BLANCO Rep #: [id number] : 1955 69 From: Jamel Gray MD Attending Dr: Dr. Anushka Isaac MD Status: PRE SDC Ordering Dr: Anushka Isaac MD Date: 12/15/24 Location: [facility] Sex: F C Admitted: Test Reason : [...] TURNER, JAMEL ([id number]), order editor ANNMARIE GANT ([id number]) on 12/16/2024 5:50:15 AM Referred By: Anushka Isaac Confirmed By: JAMEL GRAY MD 12/16/24 0550 Date Jamel Gray MD CC: Dr. Preet Farrar DO; Dr. Anushka Isaac MD Signed Normal [facility] Bilirubin, totalOrdered By: Anushka Isaac on 12-15-2024 Bilirubin [Mass/Vol] 0.49 mg/dL 0.00-1.30 [facility] CBC-Complete Blood Cnt No Di ffon 12-15-2024 Erythrocyte distribution width (RBC) [Ratio] 13.2 % Normal 11.6-14.6 [facility] Comment on above: Performed By: #### L 501.080 #### [facility] [address] [place], [address] Hematocrit (Bld) [Volume fraction] 41.4 % Normal 37-47 [facility] Comment on above: Performed By: #### L 501.080 #### [facility] [address] [place], [address] Hemoglobin (Bld) [Mass/Vol] 13.9 g/dL Normal 12.0-15.0 [facility] Comment on above: Performed By: #### L 501.080 #### [facility] [address] [place], [address] MCH (RBC) [Entitic mass] 29.9 pg Normal 27.0-32.0 [facility] Comment on above: Performed By: #### L 501.080 #### [facility] [address] [place], [address] MCHC (RBC) [Mass/Vol] 33.6 g/dL Normal 32-36 [facility] Comment on above: Performed By: #### L 501.080 #### [facility] [address] [place], [address] MCV (RBC) [Entitic vol] 89.0 fL Normal 81-99 [facility] Comment on above: Performed By: #### L 501.080 #### [facility] [address] [place], [address] Platelet mean volume (Bld) [Entitic vol] 9.9 fL Normal 6.2-12.0 [facility] Comment on above: Performed By: #### L 501.080 #### [facility] [address] [place], [address] Platelets (Bld) [#/Vol] 354 10*3/uL Normal 150-450 [facility] Comment on above: Performed By: #### L 501.080 #### [facility] [address] [place], [address] RBC (Bld) [#/Vol] 4.65 10*6/uL Normal 4.2-5.4 [facility] Comment on above: Performed By: #### L 501.080 #### [facility] [address] [place], [address] RDW SD 43.2 fl Normal 35.1-43.9 [facility] Comment on above: Performed By: #### L 501.080 #### [facility] [address] [place], [address] WBC (Bld) [#/Vol] 11.5 10*3/uL High 4.4-11.0 [facility] Comment on above: Performed By: #### L 501.080 #### [facility] [address] [place], [address] Comprehensive Metabolic Prof ilon 12-15-2024 Albumin [Mass/Vol] 4.3 g/dL Normal 3.4-4.8 [facility] Comment on above: Performed By: #### L 501.080 #### [facility] [address] [place], [address] Albumin/Globulin [Mass ratio] 1.4 {ratio} Normal 0.9-2.4 [facility] Comment on above: Performed By: #### L 501.080 #### [facility] [address] [place], [address] ALK PHOS 106 U/L High 35-104 [facility] Comment on above: Performed By: #### L 501.080 #### [facility] [address] [place], [address] ALT [Catalytic activity/Vol] 15 U/L Normal <=34 [facility] Comment on above: Performed By: #### L 501.080 #### [facility] [address] [place], [address] AST [Catalytic activity/Vol] 19 U/L Normal <=31 [facility] Comment on above: Performed By: #### L 501.080 #### [facility] [address] [place], [address] Bilirubin [Mass/Vol] 0.49 mg/dL Normal 0.00-1.30 [facility] Comment on above: Performed By: #### L 501.080 #### [facility] [address] [place], [address] BUN/CRE 26.0 RATIO High 10-20 [facility] Comment on above: Performed By: #### L 501.080 #### [facility] [address] [place], [address] Calcium [Mass/Vol] 9.7 mg/dL Normal 7.6-11.0 [facility] Comment on above: Performed By: #### L 501.080 #### [facility] [address] [place], [address] Chloride [Moles/Vol] 101 mmol/L Normal 98-108 [facility] Comment on above: Performed By: #### L 501.080 #### [facility] [address] [place], [address] CO2 [Moles/Vol] 24.6 mmol/L Normal 21.0-32.0 [facility] Comment on above: Performed By: #### L 501.080 #### [facility] [address] [place], [address] Creatinine [Mass/Vol] 0.72 mg/dL Normal 0.70-1.20 [facility] Comment on above: Performed By: #### L 501.080 #### [facility] [address] [place], [address] GAP 11 Normal 5-15 [facility] Comment on above: Performed By: #### L 501.080 #### [facility] [address] [place], [address] GFR/1.73 sq M.predicted among non-blacks MDRD (S/P/Bld) [Vol rate/Area] 90 mL/min/{1.73_m2} Normal >60 [facility] Comment on above: Result Comment: mL/m in/1.73m2 CKD-EPI Creatinine Equation (2020) Performed By: #### L 501.080 #### [facility] [address] [place], [address] Globulin (S) [Mass/Vol] 3.2 g/dL Normal 2.2-4.2 [facility] Comment on above: Performed By: #### L 501.080 #### [facility] [address] [place], [address] Glucose [Mass/Vol] 148 mg/dL High 70-99 [facility] Comment on above: Performed By: #### L 501.080 #### [facility] [address] [place], [address] Potassium [Moles/Vol] 4.1 mmol/L Normal 3.3-5.1 [facility] Comment on above: Performed By: #### L 501.080 #### [facility] [address] [place], [address] Sodium [Moles/Vol] 137 mmol/L Normal 133-145 [facility] Comment on above: Performed By: #### L 501.080 #### [facility] [address] [place], [address] T PROT 7.5 g/dL Normal 5.9-8.4 [facility] Comment on above: Performed By: #### L 501.080 #### [facility] [address] [place], [address] Urea nitrogen [Mass/Vol] 19 mg/dL Normal 4-19 [facility] Comment on above: Performed By: #### L 501.080 #### [facility] [address] [place], [address] Hemoglobin A1con 12-15-2024 HbA1c (Bld) [Mass fraction] 7.9 % Normal <=5.6 [facility] Comment on above: Performed By: #### L 501.080 #### [facility] [address] [place], [address] Hemoglobin A1c percentageOrd ered By: Daniel Jaimeawaja on 12-15-2024 HbA1c (Bld) [Mass fraction] 7.9 % >5.7 [facility] - Chemistry and C hemistry - challengeOrdered By: Anushka Froylanwilliamtaryn on 12-15-2024 AST [Catalytic activity/Vol] 19 U/L <32 [facility] MR/PAT.ANEon 12-15-2024 MR/PAT.ANE [facility] Medical Records Department [address] [place] [address] PAT - Anesthesia 12/15/24 1826 MR#: [id number] Acct: [id number] Name: DEONTE BLANCO Rep #: [id number] : 1955 69 From: Mati Ervin MD PCP: Dr. Preet Farrar, DO Status:PRE [facility] Y Race: C Location: [facility] ADDENDUM by Dr. Mati Ervin MD on 12/15/24 at 1929 Addendum Mild to moderate aortic valve stenosis is noted on echo. Avoid increases in heart rate or decreases in blood pressure. Use phenylephrine as necessary. 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 Female Yes 12/13/24 09:23 HX of Motion Sickness No 12/13/24 09:23 HX of N/V After Surgery Yes 12/13/24 09:23 Non-Smoker Yes 12/13/24 09:23 Duration of Surgery greater Yes 12/13/24 09:23 than 60 minutes Number of Risk Factors 4 12/13/24 09:23 PONV Score Severe Risk 12/13/24 09:23 Height Weight Height Weight: Anesthesia: Height Weight Height 5 ft 09/13/24 13:58 Respiratory Assessment Respiratory Assessment - 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: Respiratory Tract Infection Hx - 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 Hx Respiratory Tract Infection No 12/13/24 09:23 STOP Sleep Apnea STOP Sleep Apnea - 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: STOP Sleep Apnea - 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 Hx Hypertension Yes: CONTROLLED WITH MED 12/13/24 [...] 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: 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 Tobacco Use Cigarettes 06/13/24 15:14 Smoking Status Former smoker 12/13/24 09:23 Hx Tobacco Use Yes: marijuana 12/13/24 09:23 Years Smoking Packs Smoked per Day Smoking Cessation Date was Yes - quit smoking within 15 12/13/24 09:23 within the last 15 years years Hx Smoking Cessation Date 10/29/22 12/13/24 09:23 Hx Smoking Cessation No 12/13/24 09:23 Counseling Hematologic Medial History 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: 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 Normal [facility] Magnesiumon 12-15-2024 Magnesium [Mass/Vol] 1.8 mg/dL Normal 1.5-2.2 [facility] Comment on above: Performed By: #### L 501.080 #### [facility] [address] [place] [address]. [place], [address] Magnesium (Unsp spec) [Mass/ Vol]Ordered By: Daniel Cesar on 12-15-2024 Magnesium [Mass/Vol] 1.8 mg/dL 1.5-2.2 [facility] Magnesium measurement (mass/ volume)Ordered By: Daniel Cesar on 12-15-2024 Magnesium (Unsp spec) [Mass/Vol] 1.8 mg/dL 1.5-2.2 [facility] Serum globulin measurementOr dered By: Anushka Isaac on 12-15-2024 Globulin (S) [Mass/Vol] 3.2 g/dL 2.2-4.2 [facility] Serum or plasma alanine méndez otransferase (ALT) measurementOrdered By: Anushka Isaac on 12-15-2024 ALT [Catalytic activity/Vol] 15 U/L <35 [facility] Serum or plasma albumin mulugeta urement (mass/volume)Ordered By: Anushka Isaac on 12-15-2024 Albumin [Mass/Vol] 4.3 g/dL 3.4-4.8 [facility] Serum or plasma albumin/glob ulin mass ratioOrdered By: Anushka Isaac on 12-15-2024 Albumin/Globulin [Mass ratio] 1.4 {ratio} 0.9-2.4 [facility] Serum or plasma alkaline umm sphatase measurementOrdered By: Anushka Isaac on 12-15-2024 ALP [Catalytic activity/Vol] 106 U/L High 35-104 [facility] T4 Free Directon 12-15-2024 T4 FREE DIRECT 0.80 ng/dL Normal 0.76-1.46 [facility] Comment on above: Performed By: #### L 501.080 #### [facility] [address] [facility] [place], [address] T4 freeOrdered By: Anushka gerard on 12-15-2024 Free T4 [Mass/Vol] 0.80 ng/dL 0.76-1.46 [facility] TSH DL <= 0.005 mIU/L QnOrde red By: Anushka Isaac on 12-15-2024 Thyroid Stimulating Hormone (TSH) 0.836 uIU/mL 0.300-4.20 0 [facility] TSH Qn 0.836 uIU/mL 0.300-4.20 0 [facility] Thyroid Stim Hormone (TSH)on 12-15-2024 TSH 0.836 uIU/mL Normal 0.300-4.20 0 [facility] Comment on above: Performed By: #### L 501.080 #### [facility] [address] [place], [address] Total proteinOrdered By: Jas Isaac on 12-15-2024 Protein [Mass/Vol] 7.5 g/dL 5.9-8.4 [facility] Type AND Screen - PAT ONLYon 12-15-2024 ABO and Rh group Nom (Bld) Blood group A Rh(D) positive Normal [facility] Comment on above: Order Comment: Surge ry Date: 12/27/24Reason for Laboratory Test [id number] VAG HYSTER Performed By: #### L 501.080 #### [facility] [address] [place], [address] CNOVon 12-14-2024 CNOV Office Visit (FAMPWS ) DEONTE BLANCO ([id number]) 1955 F Date Time Provider Department 12/14/24 11:00 AM [facility] During your visit today, we recorded [...] t (more content not included)... Normal [facility] DEONTE BLANCO ([id number]) 1955 F Date Time Provider Department 12/14/24 [facility] During your visit today, we recorded [...] PM Signed Pt. wants Trulicity sent to [facility]. Insurance won't pay for Victoza. Jacqueline Candelario APRN.DEREK 12/14/2024 5:40 PM Signed The following approved medication requests have been transmitted electronically. Requested Prescriptions Signed Prescriptions Disp Refills dulaglutide (TRULICITY) 0.75 mg/0.5 mL pen injector 6 mL 2 Sig: Inject 0.75 mg subcutaneously one time a week. Authorizing Provider: JACQUELINE CANDELARIO APRN.DRAW FIRE OPERATOR Allergies As of Date: 12/14/2024 Noted Allergy [...] on fasting at 8 am - Insulin [place], Disposable, (BD ULTRA-FINE MARIA T PEN NEEDLE) [...] left [M77.02] (more content not included)... Normal [facility] Ferris Wheel Operator Office Visit Reporton 12-12-2024 Ferris Wheel Operator Office Visit Report [facility] [address], [address] [place] [address] OFFICE VISIT Date of Service: 12/12/24 MR#: [id number] Acct: [id number] Name: DEONTE BLANCO Rep #: [id number] : 1955 Provider: Dr. Anushka nolan MD Age/Sex: 69/F [place] [facility] Status: Signed Intake Vital Signs 09/13/24 13:58 12/12/24 10:53 Height 5 ft 5 ft Weight: 181 lb 188 lb 4 oz BMI 35.3 36.7 BP 153/69 H 152/59 H Blood Pressure Location Rt brachial Position Sitting Respiration 18 Pulse 69 Pulse Source Monitor Pulse Oximetry (%) 96 Oxygen Delivery Method room air Intake Visit Reasons: TVHBS Chief Complaint: FU consult medications Butter Printer Required: No Is patient in pain?: No [...] 30 mg PO MOWEFR 07/21/24 12/12/24 History ([place] Thyroid) glimepiride 2 mg tablet 3 mg [...] : No Nurse's Note: FU medication consult [facility] Medical History First degree AV block Abnormal [...] has endometri (more content not included)... Normal [facility] CREATININE, 24 HOUR URINEon 11-18-2024 Creatinine (24H U) [Mass/Time] 1.125 g/24 hr Normal 0.800-1.[address] [facility] Comment on above: Order Comment: Speci men Type: URINE SPECIMENOrdering Facility: [facility] Address: [address] [place] [address] Performed By: #### U CRD ####[facility] LAB[facility]IA [id number] [place] [address] [place] PERIOD (HRS) 24 hr Normal [facility] Comment on above: Order Comment: Speci men Type: URINE SPECIMENOrdering Facility: [facility] Address: [address] [place] [address] Performed By: #### U CRD ####[facility] LABCLIA [id number] [address] [place] Specimen volume (24H U) 1.5 L Normal [facility] Comment on above: Order Comment: Speci men Type: URINE SPECIMENOrdering Facility: [facility] Address: [address] [place] [address] Performed By: #### U CRD ####[facility] LABCLIA [id number] [address] [place] URINE FREE CORTISOL BY LC-MS /MSon 11-18-2024 CORTISOL UG/G SPECIAL WARFARE OPERATOR, UR (UFRCRT) 28.27 ug/g SPECIAL WARFARE OPERATOR Normal [facility] Comment on above: Order Comment: Speci men Type: URINE SPECIMENOrdering Facility: [facility] Address: [address] [place] [address] Result Comment: Refe rence Interval: Cortisol ug/g airport shuttle driver Female Prepubertal: Less than 25 ug/g airport shuttle driver 18 years and older: Less than 24 ug/g airport shuttle driver : Less than 59 ug/g airport shuttle driver Male Prepubertal: Less than 25 ug/g airport shuttle driver 18 years and older: Less than 32 ug/g airport shuttle driver Performed By: #### U FRCRT ####[facility] [id number] [place] [address] CREATININE, URINE PER 24H 1215 mg/d Normal 500-[address] [facility] Comment on above: Order Comment: Speci men Type: URINE SPECIMENOrdering Facility: [facility] Address: [address] [place] [address] Performed By: #### U FRCRT ####[facility] [id number] [place] [address] CREATININE, URINE PER VOLUME 81 mg/dL Normal [facility] Comment on above: Order Comment: Speci men Type: URINE SPECIMENOrdering Facility: [facility] Address: [address] [place] [address] Performed By: #### U FRCRT ####[facility] [id number] [place] [address] FREE CORTISOL UG/DAY, URINE 34.4 ug/d Normal <=45.[address] [facility] Comment on above: Order Comment: Speci men Type: URINE SPECIMENOrdering Facility: [facility] Address: [address] [place] [address] Performed By: #### U FRCRT ####[facility]IES[facility]IA [id number] [place] [address] FREE CORTISOL UG/L, URINE 22.90 ug/L Normal [facility] Comment on above: Order Comment: Speci men Type: URINE SPECIMENOrdering Facility: [facility] Address: [address] [place] [address] Performed By: #### U FRCRT ####[facility] [id number] [place] [address] HOURS COLLECTED 24 hr Normal [facility] Comment on above: Order Comment: Speci men Type: URINE SPECIMENOrdering Facility: [facility] Address: [address] [place] [address] Result Comment: Per 24h calculations are provided to aid interpretation for collections with a duration of 24 hours and an average daily urine volume. For specimens with notable deviations in collection time or volume, ratios of analytes to a corresponding urine creatinine concentration may assist in result interpretation. Performed By: #### U FRCRT ####[facility] [id number] [place] [address] TOTAL VOLUME 1500 mL Normal [facility] Comment on above: Order Comment: Speci men Type: URINE SPECIMENOrdering Facility: [facility] Address: [address] [place] [address] Performed By: #### U FRCRT ####[facility]IESCLIA [id number] [place] [address] UR YENNY FREE INTERP See Note Normal [facility] Comment on above: Order Comment: Speci men Type: URINE SPECIMENOrdering Facility: [facility] Address: [address] [place] [address] Result Comment: INTE RPRETIVE INFORMATION: Cortisol Urine Free by LC-MS/MS Access complete set of age- and/or gender-specific reference intervals for this test in the [facility] Test Directory ([employer]). This test was developed and its performance characteristics determined by [facility]. It has not been cleared or approved by the [place] Food and Drug Administration. This test was performed in a CLIA certified laboratory and is intended for clinical purposes. Performed By: [facility] [address] [place] [address] [employer] Supervisor: Suresh Rothman MD, PhD CLIA Number: [id number] Performed By: #### U FRCRT ####[facility]ITAL[facility] [id number] [place] [id number] THYROXIN, FR BY [facility]/ HPLC-TNDMMSon 11-16-2024 FREE T4 BY [facility] 1.2 ng/dL Normal 1.1-2.4 [facility] Comment on above: Order Comment: Speci men Type: BLOOD SPECIMENOrdering Facility: [facility] Address: [address] [place] [address] Result Comment: FREE T4 BY EQUIL DIALYSIS-TMS: REFERENCE INTERVALS 1ST TRIMESTER ...... 0.7 - 2.0 ng/dL 2ND TRIMESTER ...... 0.7 - 2.1 ng/dL 3RD TRIMESTER ...... 0.5 - 1.6 ng/dL INTERPRETIVE INFORMATION: FT4 ED-TMS Some medications may induce transient changes in FT4 concentrations. This test is not recommended for patients currently on heparin treatment as FT4 concentrations may be falsely elevated. Performed By: [facility] [address] [place], [place] [address] [employer] Supervisor: Suresh Rothman MD, PhD CLIA Number: [id number] Performed By: #### T 4HPLC ####[facility] YouHelpIA [id number] [place] [address] TSH SerPl-aCncon 11-16-2024 TSH Qn 1.180 m[IU]/L Normal 0.270-4.[address] [facility] Comment on above: Order Comment: Speci men Type: BLOOD SPECIMENOrdering Facility: [facility] Address: [address] [place] [address] Performed By: #### 3 016-3 ####[facility] LABCLIA [id number] GHADAAraceli PORTILLODESK [id number] OF [facility] CNOVon 11-11-2024 CNOV Office Visit (ENWSTR ) DEONTE BLANCO ([id number]) 1955 F Date Time Provider Department 11/11/24 [...] carbs . Lifestyle -Exercise: 30 mins on [employer] daily -Diet: Breakfast: 3 eggs, 1 slice [...] weakness, cramp (more content not included)... Normal [facility] GLOOKO ON DEMANDon Ordered by an unspec ified provider. [facility] CBC W Auto Differential pane l (Bld)on 11-07-2024 Basophils (Bld) [#/Vol] 0.07 10*3/uL Normal <0.[address] [facility] Comment on above: Order Comment: Speci men Type: BLOOD SPECIMENOrdering Facility: [facility] Address: [address] [place], [place] [address] Performed By: #### 5 7021-8 ####[facility] LABCLIA [id number] [place] [address] [place] Basophils/100 WBC (Bld) 0.7 % Normal [facility] Comment on above: Order Comment: Speci men Type: BLOOD SPECIMENOrdering Facility: [facility] Address: [address] [place] [address] Performed By: #### 5 7021-8 ####[facility] LABCLIA [id number] [place] [address] [place] Differential cell count method Nom (Bld) Auto Normal [facility] Comment on above: Order Comment: Speci men Type: BLOOD SPECIMENOrdering Facility: [facility] Address: [address] [place] [address] Performed By: #### 5 7021-8 ####[facility] LABCLIA [id number] [place] [address] [place] Eosinophils (Bld) [#/Vol] 0.25 10*3/uL Normal <0.[address] [facility] Comment on above: Order Comment: Speci men Type: BLOOD SPECIMENOrdering Facility: [facility] Address: [address] [place] [address] Performed By: #### 5 7021-8 ####[facility] LABCLIA [id number] [place] [address] [place] Eosinophils/100 WBC (Bld) 2.6 % Normal [facility] Comment on above: Order Comment: Speci men Type: BLOOD SPECIMENOrdering Facility: [facility] Address: [address] [place] [address] Performed By: #### 5 7021-8 ####[facility] LABCLIA [id number] [place] [address] [place] Erythrocyte distribution width (RBC) [Ratio] 13.3 % Normal 11.5-15.[address] [facility] Comment on above: Order Comment: Speci men Type: BLOOD SPECIMENOrdering Facility: [facility] Address: [address] [place] [address] Performed By: #### 5 7021-8 ####[facility] LABCLIA [id number] [place] [address] [place] Hematocrit (Bld) [Volume fraction] 40.9 % Normal 36.0-46.[address] [facility] Comment on above: Order Comment: Speci men Type: BLOOD SPECIMENOrdering Facility: [facility] Address: [address] [place] [address] Performed By: #### 5 7021-8 ####[facility] LABCLIA [id number] [place] [address] [place] Hemoglobin (Bld) [Mass/Vol] 13.3 g/dL Normal 11.5-15.[address] [facility] Comment on above: Order Comment: Speci men Type: BLOOD SPECIMENOrdering Facility: [facility] Address: [address] [place] [address] Performed By: #### 5 7021-8 ####[facility] LABCLIA [id number] [place] [address] [place] Immature granulocytes (Bld) [#/Vol] 0.07 10*3/uL Normal <0.[address] [facility] Comment on above: Order Comment: Speci men Type: BLOOD SPECIMENOrdering Facility: [facility] Consultants Address: [address] [place] [address] Performed By: #### 5 7021-8 ####[facility] LABCLIA [id number] [place] [address] [place] Immature granulocytes/100 WBC (Bld) 0.7 % Normal [facility] Comment on above: Order Comment: Speci men Type: BLOOD SPECIMENOrdering Facility: [facility] Address: [address] [place] [address] Performed By: #### 5 7021-8 ####[facility] LABCLIA [id number] [place] [address] [place] Lymphocytes (Bld) [#/Vol] 2.00 10*3/uL Normal 1.00-4.[address] [facility] Comment on above: Order Comment: Speci men Type: BLOOD SPECIMENOrdering Facility: [facility] Address: [address] [place] [address] Performed By: #### 5 7021-8 ####[facility] LABCLIA [id number] [place] [address] [place] Lymphocytes/100 WBC (Bld) 20.5 % Normal [facility] Comment on above: Order Comment: Speci men Type: BLOOD SPECIMENOrdering Facility: [facility] Address: [address] [place] [address] Performed By: #### 5 7021-8 ####[facility] LABCLIA [id number] [place] [address] [place] MCH (RBC) [Entitic mass] 30.2 pg Normal 26.0-34.[address] [facility] Comment on above: Order Comment: Speci men Type: BLOOD SPECIMENOrdering Facility: [facility] Address: [address] [place] [address] Performed By: #### 5 7021-8 ####[facility] LABCLIA [id number] [place] [address] [place] MCHC (RBC) [Mass/Vol] 32.5 g/dL Normal 30.5-36.0 [facility] Comment on above: Order Comment: Speci men Type: BLOOD SPECIMENOrdering Facility: [facility] Address: [address] [place] [address] Performed By: #### 5 7021-8 ####[facility] LABCLIA [id number] [address] [id number] [address] [place] MCV (RBC) [Entitic vol] 93.0 fL Normal 80.0-100.[address] [facility] Comment on above: Order Comment: Speci men Type: BLOOD SPECIMENOrdering Facility: [facility] Address: [address] [place] [address] Performed By: #### 5 7021-8 ####[facility] LABCLIA [id number] [place] [address] [place] Monocytes (Bld) [#/Vol] 0.87 10*3/uL High <0.[address] [facility] Comment on above: Order Comment: Speci men Type: BLOOD SPECIMENOrdering Facility: [facility] Address: [address] [place] [address] Performed By: #### 5 7021-8 ####[facility] LABCLIA [id number] [place] [address] [place] Monocytes/100 WBC (Bld) 8.9 % Normal [facility] Comment on above: Order Comment: Speci men Type: BLOOD SPECIMENOrdering Facility: [facility] Address: [address] [place] [address] Performed By: #### 5 7021-8 ####[facility] LABCLIA [id number] [place] [address] [place] Neutrophils (Bld) [#/Vol] 6.48 10*3/uL Normal 1.45-7.[address] [facility] Comment on above: Order Comment: Speci men Type: BLOOD SPECIMENOrdering Facility: [facility] Address: [address] [place] [address] Performed By: #### 5 7021-8 ####[facility] LABCLIA [id number] [place] [address] [place] Neutrophils/100 WBC (Bld) 66.6 % Normal [facility] Comment on above: Order Comment: Speci men Type: BLOOD SPECIMENOrdering Facility: [facility] Address: [address] [place] [address] Performed By: #### 5 7021-8 ####[facility] LABCLIA [id number] [place] [address] [place] Nucleated RBC (Bld) [#/Vol] 10*3/uL Normal <0.[address] [facility] Comment on above: Order Comment: Speci men Type: BLOOD SPECIMENOrdering Facility: [facility] Address: [address] [place] [address] Performed By: #### 5 7021-8 ####[facility] LABCLIA [id number] [place] [address] [place] Nucleated RBC/100 WBC (Bld) [Ratio] 0.0 /100 WBC Normal [facility] Comment on above: Order Comment: Speci men Type: BLOOD SPECIMENOrdering Facility: [facility] Address: [address] [place] [address] Performed By: #### 5 7021-8 ####[facility] LABCLIA [id number] [place] [address] [place] Platelet mean volume (Bld) [Entitic vol] 9.9 fL Normal 9.0-12.[address] [facility] Comment on above: Order Comment: Speci men Type: BLOOD SPECIMENOrdering Facility: [facility] Address: [address] [place] [address] Performed By: #### 5 7021-8 ####[facility] LABCLIA [id number] [place] [address] [place] Platelets (Bld) [#/Vol] 314 10*3/uL Normal 150-[address] [facility] Comment on above: Order Comment: Speci men Type: BLOOD SPECIMENOrdering Facility: [facility] Address: [address] [place] [address] Performed By: #### 5 7021-8 ####[facility] LABCLIA [id number] [place] [address] [place] RBC (Bld) [#/Vol] 4.40 10*6/uL Normal 3.90-5.20 [facility] Comment on above: Order Comment: Speci men Type: BLOOD SPECIMENOrdering Facility: [facility] Address: [address] [place] [address] Performed By: #### 5 7021-8 ####[facility] LABIA [id number] [place] [address] [place] WBC (Bld) [#/Vol] 9.74 10*3/uL Normal 3.70-11.00 [facility] Comment on above: Order Comment: Speci men Type: BLOOD SPECIMENOrdering Facility: [facility] Address: [address] [place] [address] Performed By: #### 5 7021-8 ####[facility] [id number] [place] [address] [place] Ferritin SerPl-mCncon 2024 Ferritin [Mass/Vol] 39.0 ng/mL Normal 14.7-205.1 [facility] Comment on above: Order Comment: Speci men Type: BLOOD SPECIMENOrdering Facility: [facility] Address: [address] [place] [address] Performed By: #### 2 276-4, 94043-6, 3084-1, 55170-8 ####[facility] LABIA [id number] [place] [address] [place] Iron and Iron binding capaci ty panelon 11-07-2024 Iron [Mass/Vol] 62 ug/dL Normal 41-[address] [facility] Comment on above: Order Comment: Speci men Type: BLOOD SPECIMENOrdering Facility: [facility] Address: [address] [place] [address] Performed By: #### 2 276-4, 57054-0, 3084-1, 60727-1 ####[facility] LABCLIA [id number] [address] [address] [place] Iron binding capacity [Mass/Vol] 404 ug/dL High 232-[address] [facility] Comment on above: Order Comment: Speci men Type: BLOOD SPECIMENOrdering Facility: [facility] Address: [address] [place] [address] Performed By: #### 2 276-4, 76965-3, 3084-, ####[facility] LABCLIA [id number] [place] [address] [place] Iron/TIBC [Molar ratio] 15.3 % Normal 15.0-57.[address] [facility] Comment on above: Order Comment: Speci men Type: BLOOD SPECIMENOrdering Facility: [facility] Address: [address] [place] [address] Performed By: #### 2 276-4, 30923-6, 3084-, 80867-6 ####[facility] LABIA [id number] [place] [address] [place] PTH-Intact SerPl-ncon 10-29 Parathyrin.intact [Mass/Vol] 42 pg/mL Normal 15-[address] [facility] Comment on above: Order Comment: Speci men Type: BLOOD SPECIMENOrdering Facility: [facility] Address: [address] [place] [address] Performed By: #### 2 731-8 ####[facility] LABCLIA [id number] [place] [address] [place] Prot/Creat Uron 11-07-2024 Protein/Creatinine (U) [Mass ratio] 0.08 mg/mg Normal <0.[address] [facility] Comment on above: Order Comment: Speci men Type: URINE SPECIMENOrdering Facility: [facility] Address: [address] [place] [address] Result Comment: Adul t Proteinuria Categories: <0.15 mg/mg is considered normal to mildly increased 0.15 - 0.50 mg/mg is considered moderately increased >0.50 mg/mg is considered severely increased KDIGO. (2013). KDIGO 2012 Clinical Practice Guideline for the Evaluation and Management of Chronic Kidney Disease. Official Journal of the International Society of Nephrology, 3(1), 1-150. Performed By: #### 2 890-2 ####[facility] LABCLIA [id number] [place] [address] [place] Protein/Creatinine (U) [Mass ratio]on 11-07-2024 Creatinine (U) [Mass/Vol] 64.2 mg/dL Normal 20.0-300.[address] [facility] Comment on above: Order Comment: Speci men Type: URINE SPECIMENOrdering Facility: [facility] Address: [address] [place] [address] Performed By: #### 2 890-2 ####[facility] LABIA [id number] [place] [address] [place] Protein (U) [Mass/Vol] 5 mg/dL Normal 0-20 [facility] Comment on above: Order Comment: Abimbola diaz Type: URINE SPECIMENOrdering Facility: [facility] Address: [address] [place] [address] Performed By: #### 2 890-2 ####[facility] LABIA [id number] [place] [address] [place] Renal function 2000 panelon 11-07-2024 Albumin [Mass/Vol] 4.2 g/dL Normal 3.9-4.9 [facility] Comment on above: Order Comment: Noryi men Type: BLOOD SPECIMENOrdering Facility: [facility] Address: [address] [place] [address] Performed By: #### 2 276-4, 79571-3, 3084-1, 45035-5 ####[facility] LABCLIA [id number] [address] [address] [place] Anion gap [Moles/Vol] 11 mmol/L Normal 8-15 [facility] Comment on above: Order Comment: Speci men Type: BLOOD SPECIMENOrdering Facility: [facility] Address: [address] [place] [address] Performed By: #### 2 276-4, 49523-4, 3084-1, 42451-4 ####[facility] LABCLIA [id number] [place] [address] [place] Calcium [Mass/Vol] 9.8 mg/dL Normal 8.5-10.2 [facility] Comment on above: Order Comment: Speci men Type: BLOOD SPECIMENOrdering Facility: [facility] Address: [address] [place] [address] Performed By: #### 2 276-4, 16012-3, 3084-1, 38618-4 ####[facility] LABCLIA [id number] [place] [address] [place] Chloride [Moles/Vol] 98 mmol/L Normal 98-107 [facility] Comment on above: Order Comment: Speci men Type: BLOOD SPECIMENOrdering Facility: [facility] Address: [address] [place] [address] Performed By: #### 2 276-4, 90701-5, 3084-1, 06197-1 ####[facility] LABCLIA [id number] [place] [address] [place] CO2 [Moles/Vol] 25 mmol/L Normal 22-[address] [facility] Comment on above: Order Comment: Speci men Type: BLOOD SPECIMENOrdering Facility: [facility] Address: [address] [place] [address] Performed By: #### 2 276-4, 79410-9, 3084-1, 08395-2 ####[facility] LABCLIA [id number] [address] [address] [place] Creatinine [Mass/Vol] 0.72 mg/dL Normal 0.58-0.96 [facility] Comment on above: Order Comment: Abimbola diaz Type: BLOOD SPECIMENOrdering Facility: [facility] Address: [address] [place] [address] Performed By: #### 2 276-4, 32851-7, 3084-1, 84167-7 ####[facility] LABCLIA [id number] [place] [address] [place] Creatinine and Glomerular filtration rate.predicted panel (S/P/Bld) 91 mL/min/1.73m??? Normal >=[address] [facility] Comment on above: Order Comment: Abimbola diaz Type: BLOOD SPECIMENOrdering Facility: [facility] Address: [address] [place] [address] Result Comment: Ana Paula mated Glomerular Filtration [...] actual GFR. Performed By: #### 2 276-4, 40615-6, 3084-1, 41198-0 ####[facility] LABCLIA [id number] [place] [address] [place] Glucose [Mass/Vol] 237 mg/dL High 74-99 [facility] Comment on above: Order Comment: Abimbola diaz Type: BLOOD SPECIMENOrdering Facility: [facility] Address: [address] [place] [address] Result Comment: The [place] Diabetes Association (ADA) provides guidance for cutoff [...] Standards of Medical Care in Diabetes 2016, [place] [employer]. Diabetes Care. 2016.39(Suppl 1). Performed By: #### 2 276-4, 53211-0, 3084-1, 18106-8 ####[facility] LABCLIA [id number] [address] [address] [place] Phosphate [Mass/Vol] 3.5 mg/dL Normal 2.7-4.8 [facility] Comment on above: Order Comment: Abimbola diaz Type: BLOOD SPECIMENOrdering Facility: [facility] Address: [address] [place] [address] Performed By: #### 2 276-4, 13939-3, 4-, 01968-5 ####[facility] LABCLIA [id number] [place] [address] [place] Potassium [Moles/Vol] 4.6 mmol/L Normal 3.7-5.1 [facility] Comment on above: Order Comment: Abimbola diaz Type: BLOOD SPECIMENOrdering Facility: [facility] Address: [address] [place] [address] Performed By: #### 2 276-4, 54149-8, 3084-1, 75180-7 ####[facility] LABCLIA [id number] [place] [address] [place] Sodium [Moles/Vol] 134 mmol/L Low 136-144 [facility] Comment on above: Order Comment: Abimbola diaz Type: BLOOD SPECIMENOrdering Facility: [facility] Address: [address] [place] [address] Performed By: #### 2 276-4, 72494-7, 3084-1, 32789-9 ####[facility] LABCLIA [id number] [place] [address] [place] Urea nitrogen [Mass/Vol] 18 mg/dL Normal 7-[address] [facility] Comment on above: Order Comment: Speci men Type: BLOOD SPECIMENOrdering Facility: [facility] Address: [address] [place] [address] Performed By: #### 2 276-4, 03696-0, 3084-, 62212-8 ####[facility] LABCLIA [id number] [address] [address] [place] Urate SerPl-mCncon 5 Urate [Mass/Vol] 3.4 mg/dL Normal 2.5-6.6 [facility] Comment on above: Order Comment: Speci men Type: BLOOD SPECIMENOrdering Facility: [facility] Address: [address] [place] [address] Performed By: #### 2 276-4, 97846-8, 3084, 92950-2 ####[facility] LABCLIA [id number] [place] [id number] [place] Echo Completeon 10-10-2024 Echo Complete [facility] [address] [place] [address] Echo Complete 10/10/24 0955 MR#: [id number] Acct: [id number] Name: DEONTE BLANCO Rep #: [id number] : 1955 69 From: Julien Reyna MD Attending Dr: Dr. 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 This note was generated with [employer] dictation software. It may contain incorrect words, spelling, and punctuation that were not noted in checking the note before signing. 10/10/24954 Date Julien Reyna MD CC: Dr. Julien Reyna MD; Dr. 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 Normal [facility] CBC W Auto Differential pane l (Bld)on 10-05-2024 Basophils (Bld) [#/Vol] 0.07 10*3/uL Normal <0.[address] [facility] Comment on above: Order Comment: Speci men Type: BLOOD SPECIMENOrdering Facility: [facility] Address: [address] [place] [address] Performed By: #### 5 7021-8 ####[facility] LABCLIA [id number] [place] [address] [place] Basophils/100 WBC (Bld) 0.7 % Normal [facility] Comment on above: Order Comment: Speci men Type: BLOOD SPECIMENOrdering Facility: [facility] Address: [address] [place] [address] Performed By: #### 5 7021-8 ####[facility] LABCLIA [id number] [place] [address] [place] Differential cell count method Nom (Bld) Auto Normal [facility] Comment on above: Order Comment: Speci men Type: BLOOD SPECIMENOrdering Facility: [facility] Address: [address] [place] [address] Performed By: #### 5 7021-8 ####[facility] LABCLIA [id number] [place] [address] [place] Eosinophils (Bld) [#/Vol] 0.21 10*3/uL Normal <0.[address] [facility] Comment on above: Order Comment: Speci men Type: BLOOD SPECIMENOrdering Facility: [facility] Address: [address] [place] [address] Performed By: #### 5 7021-8 ####[facility] LABCLIA [id number] [place] [address] [place] Eosinophils/100 WBC (Bld) 2.2 % Normal [facility] Comment on above: Order Comment: Speci men Type: BLOOD SPECIMENOrdering Facility: [facility] Address: [address] [place] [address] Performed By: #### 5 7021-8 ####[facility] LABCLIA [id number] [place] [address] [place] Erythrocyte distribution width (RBC) [Ratio] 12.9 % Normal 11.5-15.[address] [facility] Comment on above: Order Comment: Speci men Type: BLOOD SPECIMENOrdering Facility: [facility] Address: [address] [place] [address] Performed By: #### 5 7021-8 ####[facility] LABCLIA [id number] [place] [address] [place] Hematocrit (Bld) [Volume fraction] 39.9 % Normal 36.0-46.[address] [facility] Comment on above: Order Comment: Speci men Type: BLOOD SPECIMENOrdering Facility: [facility] Address: [address] [place] [address] Performed By: #### 5 7021-8 ####[facility] LABIA [id number] [place] [address] [place] Hemoglobin (Bld) [Mass/Vol] 13.1 g/dL Normal 11.5-15.[address] [facility] Comment on above: Order Comment: Speci men Type: BLOOD SPECIMENOrdering Facility: [facility] Address: [address] [place] [address] Performed By: #### 5 7021-8 ####[facility] LABIA [id number] [place] [address] [place] Immature granulocytes (Bld) [#/Vol] 0.06 10*3/uL Normal <0.[address] [facility] Comment on above: Order Comment: Speci men Type: BLOOD SPECIMENOrdering Facility: [facility] Address: [address] [place] [address] Performed By: #### 5 7021-8 ####[facility] LABCLIA [id number] [place] [address] [place] Immature granulocytes/100 WBC (Bld) 0.6 % Normal [facility] Comment on above: Order Comment: Speci men Type: BLOOD SPECIMENOrdering Facility: [facility] Address: [address] [place] [address] Performed By: #### 5 7021-8 ####[facility] LABCLIA [id number] [place] [address] [place] Lymphocytes (Bld) [#/Vol] 2.55 10*3/uL Normal 1.00-4.[address] [facility] Comment on above: Order Comment: Speci men Type: BLOOD SPECIMENOrdering Facility: [facility] Address: [address] [place] [address] Performed By: #### 5 7021-8 ####[facility] LABCLIA [id number] [place] [address] [place] Lymphocytes/100 WBC (Bld) 26.4 % Normal [facility] Comment on above: Order Comment: Speci men Type: BLOOD SPECIMENOrdering Facility: [facility] Address: [address] [place] [address] Performed By: #### 5 7021-8 ####[facility] LABIA [id number] [place] [address] [place] MCH (RBC) [Entitic mass] 30.2 pg Normal 26.0-34.[address] [facility] Comment on above: Order Comment: Speci men Type: BLOOD SPECIMENOrdering Facility: [facility] Address: [address] [place] [address] Performed By: #### 5 7021-8 ####[facility] LABIA [id number] [place] [address] [place] MCHC (RBC) [Mass/Vol] 32.8 g/dL Normal 30.5-36.0 [facility] Comment on above: Order Comment: Speci men Type: BLOOD SPECIMENOrdering Facility: [facility] Address: [address] [place] [address] Performed By: #### 5 7021-8 ####[facility] LABIA [id number] [place] [address] [place] MCV (RBC) [Entitic vol] 91.9 fL Normal 80.0-100.[address] [facility] Comment on above: Order Comment: Speci men Type: BLOOD SPECIMENOrdering Facility: [facility] Address: [address] [place] [address] Performed By: #### 5 7021-8 ####[facility] LABCLIA [id number] [place] [id number] [place] [place] Monocytes (Bld) [#/Vol] 0.70 10*3/uL Normal <0.[address] [facility] Comment on above: Order Comment: Speci men Type: BLOOD SPECIMENOrdering Facility: [facility] Address: [address] [place] [address] Performed By: #### 5 7021-8 ####[facility] LABCLIA [id number] [place] [address] [place] Monocytes/100 WBC (Bld) 7.3 % Normal [facility] Comment on above: Order Comment: Speci men Type: BLOOD SPECIMENOrdering Facility: [facility] Address: [address] [place] [address] Performed By: #### 5 7021-8 ####[facility] LABCLIA [id number] [place] [address] [place] Neutrophils (Bld) [#/Vol] 6.06 10*3/uL Normal 1.45-7.[address] [facility] Comment on above: Order Comment: Speci men Type: BLOOD SPECIMENOrdering Facility: [facility] Address: [address] [place] [address] Performed By: #### 5 7021-8 ####[facility] LABCLIA [id number] [place] [address] [place] Neutrophils/100 WBC (Bld) 62.8 % Normal [facility] Comment on above: Order Comment: Speci men Type: BLOOD SPECIMENOrdering Facility: [facility] Address: [address] [place] [address] Performed By: #### 5 7021-8 ####[facility] LABCLIA [id number] [place] [address] [place] Nucleated RBC (Bld) [#/Vol] 10*3/uL Normal <0.[address] [facility] Comment on above: Order Comment: Speci men Type: BLOOD SPECIMENOrdering Facility: [facility] Address: [address] [place] [address] Performed By: #### 5 7021-8 ####[facility] LABCLIA [id number] [place] [address] [place] Nucleated RBC/100 WBC (Bld) [Ratio] 0.0 /100 WBC Normal [facility] Comment on above: Order Comment: Speci men Type: BLOOD SPECIMENOrdering Facility: [facility] Address: [address] [place] [address] Performed By: #### 5 7021-8 ####[facility] LABIA [id number] [place] [address] [place] Platelet mean volume (Bld) [Entitic vol] 10.0 fL Normal 9.0-12.[address] [facility] Comment on above: Order Comment: Speci men Type: BLOOD SPECIMENOrdering Facility: [facility] Address: [address] [place] [address] Performed By: #### 5 7021-8 ####[facility] LABIA [id number] [place] [address] [place] Platelets (Bld) [#/Vol] 327 10*3/uL Normal 150-[address] [facility] Comment on above: Order Comment: Speci men Type: BLOOD SPECIMENOrdering Facility: [facility] Address: [address] [place] [address] Performed By: #### 5 7021-8 ####[facility] LABCLIA [id number] [place] [address] [place] RBC (Bld) [#/Vol] 4.34 10*6/uL Normal 3.90-5.20 [facility] Comment on above: Order Comment: Speci men Type: BLOOD SPECIMENOrdering Facility: [facility] Address: [address] [place] [address] Performed By: #### 5 7021-8 ####[facility] LABCLIA [id number] [place] [address] [place] WBC (Bld) [#/Vol] 9.65 10*3/uL Normal 3.70-11.00 [facility] Comment on above: Order Comment: Speci men Type: BLOOD SPECIMENOrdering Facility: [facility] Address: [address] [place] [address] Performed By: #### 5 7021-8 ####[facility] LABCLIA [id number] [place] [address] [place] Comprehensive metabolic 2000 panelon 10-05-2024 Albumin [Mass/Vol] 3.9 g/dL Normal 3.9-4.9 [facility] Comment on above: Order Comment: Speci men Type: BLOOD SPECIMENOrdering Facility: [facility] Address: [address] [place] [address] Performed By: #### 2 4331-1, 3024-7, 94349-9, 3051-0 ####[facility] LABCLIA [id number] [place] [address] [place] ALP [Catalytic activity/Vol] 92 U/L Normal 34-[address] [facility] Comment on above: Order Comment: Speci men Type: BLOOD SPECIMENOrdering Facility: [facility] Address: [address] [place] [address] Performed By: #### 2 4331-1, 3024-7, 39104-8, 3051-0 ####[facility] LABCLIA [id number] [place] [address] [place] ALT [Catalytic activity/Vol] 15 U/L Normal 7-[address] [facility] Comment on above: Order Comment: Speci men Type: BLOOD SPECIMENOrdering Facility: [facility] Address: [address] [place] [address] Performed By: #### 2 4331-1, 3024-7, 48255-4, 3051-0 ####[facility] LABCLIA [id number] [place] [address] [place] Anion gap [Moles/Vol] 11 mmol/L Normal 8-15 [facility] Comment on above: Order Comment: Speci men Type: BLOOD SPECIMENOrdering Facility: [facility] Address: [address] [place] [address] Performed By: #### 2 4331-1, 3023-7, 90942-0, 305-0 ####[facility] LABCLIA [id number] [place] [address] [place] AST [Catalytic activity/Vol] 18 U/L Normal 13-[address] [facility] Comment on above: Order Comment: Speci men Type: BLOOD SPECIMENOrdering Facility: [facility] Address: [address] [place] [address] Performed By: #### 2 4331-1, 302-7, 42757-5, 305-0 ####[facility] LABCLIA [id number] [place] [address] [place] Bilirubin [Mass/Vol] 0.4 mg/dL Normal 0.2-1.3 [facility] Comment on above: Order Comment: Speci men Type: BLOOD SPECIMENOrdering Facility: [facility] Address: [address] [place] [address] Performed By: #### 2 4331-1, 302-7, 03178-3, 3051-0 ####[facility] LABCLIA [id number] [place] [address] [place] Calcium [Mass/Vol] 9.6 mg/dL Normal 8.5-10.2 [facility] Comment on above: Order Comment: Speci men Type: BLOOD SPECIMENOrdering Facility: [facility] Address: [address] [place] [address] Performed By: #### 2 4331-1, 3024-7, 24416-3, 3051-0 ####[facility] LABCLIA [id number] [place] [address] [place] Chloride [Moles/Vol] 104 mmol/L Normal 98-107 [facility] Comment on above: Order Comment: Speci men Type: BLOOD SPECIMENOrdering Facility: [facility] Address: [address] [place] [address] Performed By: #### 2 4331-1, 3024-7, 30672-7, 3051-0 ####[facility] LABCLIA [id number] [place] [address] [place] CO2 [Moles/Vol] 23 mmol/L Normal 22-[address] [facility] Comment on above: Order Comment: Speci men Type: BLOOD SPECIMENOrdering Facility: [facility] Address: [address] [place] [address] Performed By: #### 2 4331-1, 3024-7, 94339-6, 3051-0 ####[facility] LABCLIA [id number] [place] [address] [place] Creatinine [Mass/Vol] 0.64 mg/dL Normal 0.58-0.96 [facility] Comment on above: Order Comment: Speci men Type: BLOOD SPECIMENOrdering Facility: [facility] Address: [address] [place] [address] Performed By: #### 2 4331-1, 3024-7, 13619-8, 3051-0 ####[facility] LABCLIA [id number] [place] [address] [place] Creatinine and Glomerular filtration rate.predicted panel (S/P/Bld) 96 mL/min/1.73m??? Normal >=[address] [facility] Comment on above: Order Comment: Abimbola diaz Type: BLOOD SPECIMENOrdering Facility: [facility] Address: [address] [place] [address] Result Comment: Ana Paula mated Glomerular Filtration [...] GFR. Performed By: #### 2 4331-1, 3024-7, 92607-9, 305-0 ####[facility] LABCLIA [id number] [place] [address] [place] Glucose [Mass/Vol] 170 mg/dL High 74-99 [facility] Comment on above: Order Comment: Abimbola diaz Type: BLOOD SPECIMENOrdering Facility: [facility] Address: [address] [place] [address] Result Comment: The [place] Diabetes Association (ADA) provides guidance for cutoff [...] Standards of Medical Care in Diabetes 2016, [place] Diabetes Association. Diabetes Care. 2016.39(Suppl 1). Performed By: #### 2 4331-1, 3024-7, 74778-3, 305-0 ####[facility] LABCLIA [id number] [place] [id number] [place] Potassium [Moles/Vol] 4.4 mmol/L Normal 3.7-5.1 [facility] Comment on above: Order Comment: Speci men Type: BLOOD SPECIMENOrdering Facility: [facility] Address: [address] [place] [address] Performed By: #### 2 4331-1, 3024-7, 70117-4, 3051-0 ####[facility] LABCLIA [id number] [place] [address] [place] Protein [Mass/Vol] 6.8 g/dL Normal 6.3-8.0 [facility] Comment on above: Order Comment: Speci men Type: BLOOD SPECIMENOrdering Facility: [facility] Address: [address] [place] [address] Performed By: #### 2 4331-1, 3024-7, 39737-9, 3051-0 ####[facility] LABCLIA [id number] [place] [address] [place] Sodium [Moles/Vol] 138 mmol/L Normal 136-144 [facility] Comment on above: Order Comment: Speci men Type: BLOOD SPECIMENOrdering Facility: [facility] Address: [address] [place] [address] Performed By: #### 2 4331-1, 3024-7, 86870-5, 3051-0 ####[facility] LABCLIA [id number] [place] [address] [place] Urea nitrogen [Mass/Vol] 15 mg/dL Normal 7-[address] [facility] Comment on above: Order Comment: Speci men Type: BLOOD SPECIMENOrdering Facility: [facility] Address: [address] [place] [address] Performed By: #### 2 4331-1, 3024-7, 50026-2, 3051-0 ####[facility]CLIA [id number] [facility] [address] [address] [place] HbA1c (Bld)on 10-05-2024 Average glucose Estimated from glycated hemoglobin (Bld) [Mass/Vol] 163 mg/dL Normal [facility] Comment on above: Order Comment: Abimbola diaz Type: BLOOD SPECIMENOrdering Facility: [facility] Address: [address] [place] [address] Result Comment: eAG: (Estimated average glucose) is a calculated value from HgbA1c and is dealer compliance representative of the average blood glucose level in the last 2-3 month period. Performed By: #### 5 5454-3 ####[facility] LABCLIA [id number] [place] [address] [place] [facility] HbA1c (Bld) [Mass fraction] 7.3 % High 4.3-5.[address] [facility] Comment on above: Order Comment: Abimbola diaz Type: BLOOD SPECIMENOrdering Facility: [facility] Address: [address] [place] [address] Result Comment: [place] Diabetes Association guidelines indicate that patients with HgbA1c in the range 5.7-6.4% are at increased risk for development of diabetes, and intervention by lifestyle modification may be beneficial. HgbA1c greater or equal to 6.5% is considered diagnostic of diabetes. Performed By: #### 5 5454-3 ####[facility] LABCLIA [id number] [place] [address] [place] [facility] Lipid 1996 panelon Cholesterol [Mass/Vol] 122 mg/dL Normal <200 [facility] Comment on above: Order Comment: Abimbola diaz Type: BLOOD SPECIMENOrdering Facility: [facility] Address: [address] [place] [address] Result Comment: <200 mg/dL, Desirable 200-239 mg/dL, Borderline high >239 mg/dL, High Performed By: #### 2 4331-1, 3024-7, 91286-3, 3051-0 ####[facility] LABCLIA [id number] [address] [place] Cholesterol in HDL [Mass/Vol] 65 mg/dL Normal >[address] [facility] Comment on above: Order Comment: Norylillian diaz Type: BLOOD SPECIMENOrdering Facility: [facility] Address: [address] [place] [address] Result Comment: 40-5 9 mg/dL, Acceptable >59 mg/dL, High: Negative risk factor for coronary heart disease <40 mg/dL, Low: Positive risk factor for coronary heart disease Performed By: #### 2 4331-1, 3024-7, 38939-1, 305-0 ####[facility] LABCLIA [id number] [place] [address] [place] Cholesterol in LDL [Mass/Vol] 36 mg/dL Normal <[address] [facility] Comment on above: Order Comment: Abimbola emily Type: BLOOD SPECIMENOrdering Facility: [facility] Address: [address] [place] [address] Result Comment: <100 mg/dL, Optimal 100-129 mg/dL, Near optimal/above optimal 130-159 mg/dL, Borderline high 160-189 mg/dL, High >189 mg/dL, Very high Secondary prevention optimal LDL Cholesterol levels are recommended to be < 70 mg/dL Performed By: #### 2 4331-1, 3023-7, 36926-1, 305-0 ####[facility] LABCLIA [id number] [place] [address] [place] Cholesterol in LDL/Cholesterol in HDL [Mass ratio] 0.55 {ratio} Normal <2.[address] [facility] Comment on above: Order Comment: Norylillian diaz Type: BLOOD SPECIMENOrdering Facility: [facility] Address: [address] [place] [address] Result Comment: Kyra glover: 1. National Cholesterol Education Program ATP III Guideline At-A-Glance Quick Desk Reference: National Heart, Lung, and Blood [place]. National Institutes of Health. 2001: NIH Publication No. 01-3305. 2. An International Atherosclerosis Society position paper: global recommendations for the management of dyslipidemia: executive summary, Atherosclerosis. 2014: 232(2):410-413. Performed By: #### 2 4331-1, 3024-7, 01721-0, 305-0 ####[facility] LABCLIA [id number] [address] [address] [place] Cholesterol in VLDL [Mass/Vol] 21 mg/dL Normal <[address] [facility] Comment on above: Order Comment: Speci men Type: BLOOD SPECIMENOrdering Facility: [facility] Address: [address] [place] [address] Performed By: #### 2 4331-1, 3023-7, 55262-9, 305-0 ####[facility] LABCLIA [id number] [address] [address] [place] Cholesterol non HDL [Mass/Vol] 57 mg/dL Normal <[address] [facility] Comment on above: Order Comment: Speci men Type: BLOOD SPECIMENOrdering Facility: [facility] Address: [address] [place] [address] Result Comment: <130 mg/dL, Optimal 130-159 mg/dL, Near optimal/above optimal 160-189 mg/dL, Borderline high 190-219 mg/dL, High >219 mg/dL, Very high Secondary prevention optimal non HDL Cholesterol levels are recommended to be <100 mg/dL Performed By: #### 2 4331-1, 3023-7, 12671-5, 305-0 ####[facility] LABCLIA [id number] [address] [address] [place] Cholesterol.total/Chol esterol in HDL [Mass ratio] 1.88 {ratio} Normal <5.[address] [facility] Comment on above: Order Comment: Speci men Type: BLOOD SPECIMENOrdering Facility: [facility] Address: [address] [place] [address] Performed By: #### 2 4331-1, 3023-7, 38834-0, 3051-0 ####[facility] LABCLIA [id number] [address] [address] [place] FASTING TIME 10 hrs Normal [facility] Comment on above: Order Comment: Speci men Type: BLOOD SPECIMENOrdering Facility: [facility] Address: [address] [place] [address] Performed By: #### 2 4331-1, 3023-7, 31505-4, 305-0 ####[facility] LABCLIA [id number] [place] [address] [place] Triglyceride [Mass/Vol] 105 mg/dL Normal <[address] [facility] Comment on above: Order Comment: Speci men Type: BLOOD SPECIMENOrdering Facility: [facility] Address: [address] [place] [address] Result Comment: <150 mg/dL, Normal 150-199 mg/dL, Borderline high 200-499 mg/dL, High >499 mg/dL, Very high Performed By: #### 2 4331-1, 7, , 305-0 ####[facility] LABCLIA [id number] [place] [address] [place] T3Free SerPl-mCncon 10-05-19 25 Free T3 [Mass/Vol] 2.5 pg/mL Normal 2.3-4.1 [facility] Comment on above: Order Comment: Speci men Type: BLOOD SPECIMENOrdering Facility: [facility] Address: [address] [place] [address] Performed By: #### 2 4331-1, 7, , 305-0 ####[facility] LABCLIA [id number] [place] [address] [place] T4 Free SerPl-mCncon 025 Free T4 [Mass/Vol] 0.7 ng/dL Low 0.9-1.7 [facility] Comment on above: Order Comment: Speci men Type: BLOOD SPECIMENOrdering Facility: [facility] Address: [address] [place] [address] Performed By: #### 2 4331-1, 3023-7, 15838-2, 3051-0 ####[facility] LABCLIA [id number] [place] [address] [place] TSH SerPl-aCncon 10-05-2024 TSH Qn 1.550 m[IU]/L Normal 0.270-4.[address] [facility] Comment on above: Order Comment: Speci men Type: BLOOD SPECIMENOrdering Facility: [facility] Address: [address] [place] [address] Performed By: #### 3 016-3 ####[facility] LABCLIA [id number] [address] [place] CNPNon 10-04-2024 [facility] DE[facility] BLANCO ([id number]) 1955 F Date Time Provider Department 10/04/24 [facility] During your visit today, we recorded [...] - Rash Date Reviewed: 08/11/2024 Reviewed by: Mdaie Bruce MA - Fully Assessed Primary Visit Diagnosis:Hyperlipidemia, mixed [E78.2] Other Visit Diagnoses:Hypothyroidism, unspecified type [E03.9] 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, without long-term current use of insulin (HCC) [E08.69] Order(s):THYROID STIMULATING HORMONE [SQTSH] Order #: [id number] FUTURE LIPID PANEL BASIC [SQLIPB] Order #: [id number] FUTURE COMPREHENSIVE METABOLIC PANEL [SQCMP] Order #: [id number] FUTURE HEMOGLOBIN A1C [EFHFO8O] Order #: [id number] FUTURE COMPLETE BLOOD COUNT AND DIFFERENTIAL [SQCBCDIF] Order #: [id number] FUTURE T3, FREE [SQFREET3] Order #: [id number] FUTURE T4 FREE/FREE THYROXINE [SQFT4] Order #: [id number] FUTURE Prescriptions as of 10/04/2024 - glimepiride [...] on fasting at 8 am - Insulin [place], Disposable, (BD ULTRA-FINE MARIA T PEN NEEDLE) [...] deficiency [E (more content not included)... Normal [facility] [employer] Wheel [employer] Office Visit Reporton 09-13-2024 Ferr[employer] Wheel Operator Office Visit Report [facility] [address], [address] [place] [address] OFFICE VISIT Date of Service: 09/13/24 MR#: [id number] Acct: [id number] Name: DEONTE BLANCO Rep #: [id number] : 1955 Provider: Dr. Anushka nolan MD Age/Sex: 69/F [place] [facility] [place]: Signed Intake Vital Signs 08/17/24 08:30 [...] 30 mg PO MOWEFR 07/21/24 09/13/24 History ([place] Thyroid) glimepiride 2 mg tablet 3 mg PO BID 08/10/24 09/13/24 History ondansetron 4 mg disintegrating 4 mg PO Q8H PRN 08/12/24 09/13/24 History tablet insulin glargine 100 unit/mL (3 16 unit subcut DAILY 08/17/24 09/13/24 History mL) subcutaneous pen (Lantus Solostar U-100 Insulin) losartan 25 mg tablet 25 mg PO QDAY #90 tabs 08/17/24 09/13/24 Rx Nurse's Note: FU medication consult [facility] Medical History (Updated 09/13/24 @ 14:50 by [...] any bleeding. (more content not included)... Normal [facility] 09-12-2024 [facility] Telephone ([facility]) FRANCISDEONTE March ([id number]) 1955 F Date Time Provider Department 09/12/24 [facility] During your visit today, we recorded [...] on fasting at 8 am - Insulin [place], Disposable, (BD ULTRA-FINE MARIA T PEN NEEDLE) [...] by SAHARA MEJIA LPN on 10/04/[address] [facility] Carotid Duplex Ultrasoundon 09-06-[address] [facility] [address] [facility] [place] [address] Carotid Duplex Ultrasound 09/06/24 0850 MR#: [id number] Acct: [id number] Name: DEONTE BLANCO Rep #: [id number] : 1955 69 From: Hermes Block MD Attending Dr: Dr. Julien Reyna MD Status: REG CLI Ordering Dr: Julien Reyna MD Date: 09/06/24 Location: [facility] Sex: F C Admitted: Reason For Study: [...] the left vertebral artery. Procedure Carotid Duplex 57260. This is a Carotid Duplex examination using [...] Dictated: 09/06/24 0850 Date Transcribed: 09/06/24 1331 Extrusion Utility Worker: Signed Normal [facility] Renal Artery Duplex Ultrasou ndon 09-06-2024 Renal Artery Duplex Ultrasound [facility] [address] [place] [address] Renal Artery Duplex Ultrasound 09/06/24 0822 MR#: [id number] Acct: [id number] Name: DEONTE BLANCO Rep #: [id number] : 1955 69 From: Hermes Block MD [...] Date Dictated: 09/06/24 0822 Date Transcribed: 09/06/241335 Extrusion Utility Worker: Signed Normal [facility] 12 Lead EKG performed by [facility] [place] on 08-17-2024 12 Lead EKG performed by [facility] [address] [place] [address] 12 Lead EKG performed by [facility] [place] 08/17/24 1009 MR#: [id number] Acct: [id number] Name: DEONTE BLANCO Rep #: [id number] : 1955 68 From: Julien Reyna MD Attending Dr: Dr. Julien Reyna MD Status: DEP AMB Ordering Dr: Julien Reyna MD Date: 08/17/24 Location: [facility] [place] Sex: F C Admitted: BMS/12 Lead EKG performed by [facility] [place] ECG Report Interpretation S inus Rhythm -First degree A-V block Marleen = 252BORDERLINE RHYTHMElectronically signed on 10/24/2024 at 11:[address] Julien Reyna [employer] Version 8610 10/24/24 1120 Date Julien Reyna MD CC: Dr. Preet Farrar DO Date Dictated: 08/17/24 1009 Date Transcribed: 08/17/24 1009 Extrusion Utility Worker: JOZEF Signed Normal [facility] Cardiology Visit Reporton Cardiology Visit Report [facility] [address] [place] [address] OFFICE VISIT Date of Service: 08/17/24 MR#: [id number] Acct: [id number] Name: DEONTE BLANCO Rep #: [id number] : 1955 Provider: Dr. Julien Reyna MD Age/Sex: 68/F Location: [facility] [place] Status: Signed HPI HPI History of Present [...] 62 Intake Visit Reasons: Est Care (self) Butter Printer Required: No Accompanied by: Self Is patient [...] 30 mg PO MOWEFR 07/21/24 08/17/24 History ([place] Thyroid) glimepiride 2 mg tablet 3 mg [...] 08/17/24 @ 10:07 (more content not included)... [facility] Santana 08-11-2024 CNOV Office Visit (ENWSTR ) DEONTE BLANCO ([id number]) 1955 F Date Time Provider Department 08/11/24 [...] pill . Lifestyle -Exercise: 30 mins on [employer] daily -Diet: Breakfast: 3 eggs, 1 slice [...] D de (more content not included)... Normal 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 [place]: Signed Intake Vital Signs 07/07/24 13:26 07/26/24 06:31 08/10/24 09:30 08/10/24 09:36 Height 5 ft 5 ft 5 ft 5 ft Weight: 181 lb 8 oz BMI 35.4 BP 132/74 H Intake Visit Reasons: 2 wk d C possible hysteroscopy Chief Complaint: 2 Week d c Butter Printer Required: No Is patient in pain?: No [...] 30 mg PO MOWEFR 07/21/24 08/10/24 History ([place] Thyroid) glimepiride 2 mg tablet 3 mg [...] Labor Lg (more content not included)... Normal [facility] Bedside Glucoseon 07-26-2024 FINGERSTICK GLU 171 mg/dL High 74-106 [facility] Comment on above: Result Comment: CARIN DYER OF PATIENT CARE PER NURSING PROTOCOL Performed By: #### L 501.080 #### [facility] [address] [place], [place], [address] Discharge Instructionon 06-[address] [facility] Medical Records Department [address] [place] [address] Instructions for Home/Discharge Instructions 07/26/24 0841 MR#: [id number] Acct: [id number] Name: DEONTE BLANCO Rep #: [id number] : 1955 68 From: Anushka Isaac MD PCP: Dr. Preet Farrar, DO Status:REG [facility] Discharge Instructions Diet Discharge Diet: No restrictions [...] Up With: Anushka Isaac MD When: Call [phone] to schedule appointment. Test Results: Test results from this visit will be discussed in further detail at your follow-up appointment, if applicable. Discharge Plan Admission Attending Provider: Anushka Isaac Primary Care Provider: Preet Farrar Instructions Print Language: Citizen [place] Discharge Orders/Prescriptions Prescriptions: No Action Januvia 100 [...] pen 16 unit subcut DAILY thyroid (pork) [[place] Thyroid] 30 mg tablet 30 mg PO MOWEFR Other Ambulatory Orders: 12 Lead EKG (Routine) Timeframe: 20240721 Location: None Selected Ordered By: Dr. Anushka Isaac Referrals / Follow Up: Preet Farrar DO [Primary Care Provider] - Disposition Disposition (needs filled in before D/C Order can be placed): Home, Self Care 07/26/24840 Anushka Isaac MD CC: Dr. Preet Farrar DO Signed [facility] MR/POSTOP.ANEon 07-26-2024 MR/POSTOP.[facility] Medical Records Department [address] [place] [address] Anesthesia Postop Eval I 07/26/24833 MR#: [id number] Acct: [id number] Name: DEONTE BLANCO Rep #: [id number] : 1955 68 From: Julisa Wray CRNA PCP: Dr. Preet Farrar DO Status:REG SDC Y Race: C Location: [place] [address] Anesthesia: Postop Eval I Current Vital Signs [...] Wray CRNA Cosigner Signature: Date CC: Signed [facility] MR/OTLMFZVX3in 07-26-2024 MR/POSTOPAN2 [facility] Medical Records Department [address] [place] [address] Anesthesia Postop Eval II 07/26/24913 MR#: [id number] Acct: [id number] Name: DEONTE BLANCO Rep #: [id number] : 1955 68 From: Mati Ervin MD PCP: Dr. Preet Farrar, DO Status:REG SDC Y Race: C Location: [facility]- Anesthesia Postop Eval I Sum Postop Eval Completion status Anesthesia document: Postop Eval 1 completed: Yes Anesthesia Postop Eval I Summary Anesthesia Postop Eval I Summary: Anesthesia Postop Eval I: Assessment Summary Airway patent Yes 07/26/24 08:36 EDITOR MAP.SKOBY Spontaneous unlabored Yes 07/26/24 08:36 EDITOR MAP.SKOBY respirations Mental status Awake,Calm 07/26/24 08:36 EDITOR MAP.SKOBY nausea No 07/26/24 08:36 EDITOR MAP.SKOBY Vomiting No 07/26/24 08:36 EDITOR MAP.SKOBY Anesthesia Postop Eval I: Fluid Summary Crystalloid volume administer 10 07/26/24 08:36 EDITOR MAP.SKOBY (ml) Colloids volume administered ( ml) Blood Product volume administered (ml) Total IV fluid infused 10 07/26/24 08:36 EDITOR MAP.SKOBY Anesthesia Postop Eval I: Summary Notes Anesthesia Complication No 07/26/24 08:36 EDITOR MAP.SKOBY Anesthesia Complication Comment: Post-operative progress note Anesthesia: Postop Eval II Evaluation Mental status: Awake and Calm Pain Level: 1 nausea: No Vomiting: No Complications Anesthesia Complication: No 07/26/24914 Date Mati Ervin MD Cosigner Signature: Date CC: Signed Normal [facility] Operative Reporton 4 Operative Report [facility] Medical Records Department [address] [place] [address] Operative Report 07/26/2429 MR#: [id number] Acct: [id number] Name: DEONTE BLANCO Rep #: [id number] : 1955 68 From: Anushka Isaac MD PCP: Dr. Preet Farrar DO Status:[facility] Location: [place] [address] Operative Report (Standard) Operative Information Surgery/Procedure Performed: [...] stable condition. Surgical Findings: endometrial polypoid mass Building Coordinator shiftman: No Complications Complications: No Multi Select Codes Urinary/Genital Urinary/Genital CPT Codes: 33010 Hysteroscopy,EMC, Polypectomy 07/26/24 0840 Cosigner Signature (if applicable): CC: Dr. Preet Farrar DO; Dr. Anushka Isaac MD Signed Normal [facility] Surgery Specimen Level Adonis 07-26-2024 Surgery Specimen Level IV Patient Age/Sex Location Account Attending Physician DEONTE BLANCO 68/F [facility] [id number] Dr. Anushka Isaac MD Specimen: [id number] Received: 07/26/24 Status: ROSALINA Leonard Num: [id number] Spec Type: ENDOM BX/C Subm Dr: Dr. [...] is submitted in three cassettes. 07/26/2024 TC:5 CPT:75467 Patient Age/Sex Location Account Attending Physician DEONTE BLANCO 68/F [facility] [id number] Dr. Anushka Isaac MD Signed (signature on file) Dr. Jorge Gerber MD 07/27/24 1238 Normal [facility] Comment on above: Performed By: #### P SUIV ####[facility] [address] [place], [place], [address] 12 Lead EKGon 07-21-2024 12 Lead EKG [facility] Cardiovascular Services [address] [place] [address] 12 Lead EKG 07/21/24 1100 MR#: [id number] Acct: [id number] Name: DEONTE BLANCO Rep #: [id number] : 1955 68 From: Jamel Gray MD Attending Dr: Dr. Anushka Isaac MD Status: PRE SDC Ordering Dr: Anushka Isaac MD Date: 07/21/24 Location: [facility] Sex: F C Admitted: Test Reason : [...] normal ECG Confirmed by ISAAC TURNER, JAMEL ([id number]), order editor ANNMARIE GANT ([id number]) on 07/21/2024 2:11:14 PM Referred By: Ansuhka Isaac Confirmed By:JAMEL GRAY MD 07/21/24 1411 Date Jamel Gray MD CC: Dr. Preet Farrar, DO; Dr. Anushka Isaac MD Signed Normal [facility] Comprehensive Metabolic Prof ilon 07-21-2024 Albumin [Mass/Vol] 3.5 g/dL Normal 3.2-5.0 [facility] Comment on above: Performed By: #### L 501.9985, L500.4050, L501.9520, BTSPAT ####[facility] [address] [place], [address] Albumin/Globulin [Mass ratio] 1.0 {ratio} Normal 0.9-2.4 [facility] Comment on above: Performed By: #### L 501.9985, L500.4050, L501.9520, BTSPAT ####[facility] [address] [place], [address] ALK P 88 U/L Normal 45-117 [facility] Comment on above: Performed By: #### L 501.9985, L500.4050, L501.9520, BTSPAT ####[facility] [address] [place], [address] ALT [Catalytic activity/Vol] 18 U/L Normal 13-56 [facility] Comment on above: Performed By: #### L 501.9985, L500.4050, L501.9520, BTSPAT ####[facility] [address] [place], [address] AST [Catalytic activity/Vol] 13 U/L Low 15-37 [facility] Comment on above: Performed By: #### L 501.9985, L500.4050, L501.9520, BTSPAT ####[facility] [address] [place], [address] Bilirubin [Mass/Vol] 0.60 mg/dL Normal 0.20-1.00 [facility] Comment on above: Result Comment: For patients on eltrombopag therapy, use of Dimension [place] TBIL is not recommended. Performed By: #### L 501.9985, L500.4050, L501.9520, BTSPAT ####[facility] [address] [place], [address] BUN/CRE 26.9 RATIO High 10-20 [facility] Comment on above: Performed By: #### L 501.9985, L500.4050, L501.9520, BTSPAT ####[facility] [address] [place], [address] CA,Total 9.5 mg/dL Normal 8.5-10.1 [facility] Comment on above: Performed By: #### L 501.9985, L500.4050, L501.9520, BTSPAT ####[facility] [address] [place], [address] Chloride [Moles/Vol] 106 mmol/L Normal 98-107 [facility] Comment on above: Performed By: #### L 501.9985, L500.4050, L501.9520, BTSPAT ####[facility] [address] [place], [address] CO2 [Moles/Vol] 25.0 mmol/L Normal 21.0-32.0 [facility] Comment on above: Performed By: #### L 501.9985, L500.4050, L501.9520, BTSPAT ####[facility] [address] [place], [address] Creatinine [Mass/Vol] 0.71 mg/dL Normal 0.55-1.02 [facility] Comment on above: Result Comment: The validity of the calculated GFR GFRAA in patients over 70 years has not been determined. Clinical correlation is essential. Performed By: #### L 501.9985, L500.4050, L501.9520, BTSPAT ####[facility] [address] [place], [address] EST GFR - AA 106 mL/min Normal >60 [facility] Comment on above: Result Comment: Afri can [place] GFR Calc Performed By: #### L 501.9985, L500.4050, L501.9520, BTSPAT ####[facility] [address] [place], [address] GAP 5 Normal 5-15 [facility] Comment on above: Performed By: #### L 501.9985, L500.4050, L501.9520, BTSPAT ####[facility] [address] [place], [address] GFR/1.73 sq M.predicted among non-blacks MDRD (S/P/Bld) [Vol rate/Area] 87 mL/min/{1.73_m2} Normal >60 [facility] Comment on above: Result Comment: Non- GFR Calc Performed By: #### L 501.9985, L500.4050, L501.9520, BTSPAT ####[facility] [address] [place], [address] Globulin (S) [Mass/Vol] 3.6 g/dL Normal 2.2-4.2 [facility] Comment on above: Performed By: #### L 501.9985, L500.4050, L501.9520, BTSPAT ####[facility] [address] [place], [address] Glucose [Mass/Vol] 191 mg/dL High 74-106 [facility] Comment on above: Result Comment: Fast ing Glucose result greater than or equal to 126 mg/dL suggests DIABETES MELLITUS per A.D.A. criteria. Performed By: #### L 501.9985, L500.4050, L501.9520, BTSPAT ####[facility] [address] [place], [address] Potassium [Moles/Vol] 4.0 mmol/L Normal 3.5-5.1 [facility] Comment on above: Performed By: #### L 501.9985, L500.4050, L501.9520, BTSPAT ####[facility] [address] [place], [address] Sodium [Moles/Vol] 136 mmol/L Normal 136-145 [facility] Comment on above: Performed By: #### L 501.9985, L500.4050, L501.9520, BTSPAT ####[facility] [address] [place], [address] T PROT 7.1 g/dL Normal 6.4-8.2 [facility] Comment on above: Performed By: #### L 501.9985, L500.4050, L501.9520, BTSPAT ####[facility] [address] [place], [address] Urea nitrogen [Mass/Vol] 19 mg/dL High 7-18 [facility] Comment on above: Performed By: #### L 501.9985, L500.4050, L501.9520, BTSPAT ####[facility] [address] [place], [address] Hemoglobin A1con 07-21-2024 HbA1c (Bld) [Mass fraction] 7.2 % High 3.8-5.6 [facility] Comment on above: Result Comment: Norm al < 5.7 % Prediabetic 5.7 - 6.4 % Diabetic >or= 6.5 % Please note range changes. Performed By: #### L 501.9985, L500.4050, L501.9520, BTSPAT ####[facility] [address] [place], [address] Thyroid Stim Hormone (TSH)on 07-21-2024 TSH 0.143 uIU/mL Low 0.358-3.74 0 [facility] Comment on above: Performed By: #### L 501.9985, L500.4050, L501.9520, BTSPAT ####[facility] [address] [place], [address] Type AND Screen - GLORIA Nixon 07-21-2024 ABO and Rh group Nom (Bld) Blood group A Rh(D) positive Normal [facility] Comment on above: Order Comment: Reaso n for Laboratory Test [id number] D C Performed By: #### L 501.9985, L500.4050, L501.9520, BTSPAT ####[facility] [address] [place], [address] [facility]NPNon [facility]-20[facility] DE[facility]TE BLANCO ([id number]) 1955 F Date Time Provider Department 07/20/24 [facility] During your visit today, we recorded [...] tablet by mouth once daily. - Insulin [place], Disposable, (BD ULTRA-FINE MARIA T PEN NEEDLE) [...] Status:Closed by LISA APARICIO on 07/21/[address] [facility] CNPNon 07-19-2024 CNPN Telephone (FAMPWS) DEONTE BLANCO ([id number]) 1955 F Date Time Provider Department 07/19/24 PREET FARRAR FAMPWS During your visit today, we recorded the following information about you: Annmarie Canada RN 07/19/2024 11:34 AM Signed Lali with [facility] called in and reports she had faxed over the surgical clearance form on 07/15/24. I let them know it wasn't charted that they had received it, so she is going to send it again. Pt is going to have a DNC on 07/26/24, please fill out and fax back. Faxed recent thyroid labs and labs from April to [phone]. Let them know the other recent labs were external, and they would have to get them from [facility]. Sahara Mejia LPN 07/19/2024 4:31 PM S[address] Form on Dr. Farrar's desk Chelo Prasad RN 07/25/2024 10:49 AM Signed Lali at [facility] called again regarding this pt. Pt is to have procedure tomorrow and they are asking if Dr. Farrar's office received surgical clearance forms last week-they are in need of them being completed. Asking if someone can call them today with an update on the forms. Call Lali at [phone]. OLVIN Mujica Susan LPN 07/25/2024 10:55 AM [...] tablet by mouth once daily. - Insulin [place], Disposable, (BD ULTRA-FINE MARIA T PEN NEEDLE) [...] Diabetes mellit (more content not included)... Normal [facility] Ferris Wheel Operator Office Visit Reporton 07-19-2024 Ferris Wheel Operator Office Visit Report [facility], [address] [place] [address] OFFICE VISIT Date of Service: 07/19/24 MR#: [id number] Acct: [id number] Name: DEONTE BLANCO Rep #: [id number] : 1955 Provider: Dr. Anushka nolan MD Age/Sex: 68/F Location: [facility] [place] [place] Status: Signed Intake Vital Signs 07/07/24 13:26 07/19/24 07:53 Height 5 ft 5 ft Weight: 178 lb 177 lb BMI 34.7 34.5 BP 171/77 H 155/64 H Blood Pressure Location Lt brachial Position Sitting Pulse 70 Pulse Source Monitor Intake Visit Reasons: D C possible hysteroscopy Chief Complaint: surgical consult atypica cells on EMB- non cancerous Butter Printer Required: No Is patient in pain?: No [...] Jeffrey TRICIA Cons (more content not included)... [facility] 07-15-2024 [facility] Telephone (FAMPWS) DEONTE BLANCO ([id number]) 1955 F Date Time Provider Department 07/15/24 PREET FARRAR [facility] During your visit today, we [...] Patient is having DNC done on 07/26/2024. [facility] had faxed over surgical clearance form [...] few points lower around 150's to 160's rPeet Farrar DO 07/25/2024 4:35 PM Signed Noted, [...] tablet by mouth once daily. - Insulin [place], Disposable, (BD ULTRA-FINE MARIA T PEN NEEDLE) [...] [E55.9] 09/10 (more content not included)... Normal [facility] T3Free SerPl-mCncon 07-15-20 24 Free T3 [Mass/Vol] 5.0 pg/mL High 2.3-4.1 [facility] Comment on above: Order Comment: Speci men Type: BLOOD SPECIMENOrdering Facility: [facility] Address: [address] [place] [address] Performed By: #### 3 051-0, 7, 3 ####[facility] LABCLIA [id number] [place] [address] [place] T4 Free SerPl-mCncon 024 Free T4 [Mass/Vol] 0.9 ng/dL Normal 0.9-1.7 [facility] Comment on above: Order Comment: Speci men Type: BLOOD SPECIMENOrdering Facility: [facility] Address: [address] [place] [address] Performed By: #### 3 051-0, 7, 3 ####[facility] LABCLIA [id number] [place] [address] [place] TSH SerPl-aCncon 07-15-2024 TSH Qn 0.218 m[IU]/L Low 0.270-4.[address] [facility] Comment on above: Order Comment: Speci men Type: BLOOD SPECIMENOrdering Facility: [facility] Address: [address] [place] [address] Performed By: #### 3 051-0, 3023-7, 6-3 ####[facility] LABCLIA [id number] [place] [address] [place] CNOVon 06-14-2024 CNOV Office Visit (FAMPWS ) DEONTE BLANCO ([id number]) 1955 F Date Time Provider Department 06/14/24 2:20 PM [facility] During your visit today, we recorded [...] thickened endometrial lining. Has been seen by PURCHASING ASSOCIATE and had EMB and will be having a consult with Dr. Froylan Farnsworth PURCHASING ASSOCIATE on 07/07 to potentially schedule MEREDITH. She [...] 1 tablet by mouth once daily. Insulin [place], Disposable, (PEN NEEDLE) 29 ga (more content not included)... Normal [facility] Comprehensive metabolic 2000 panelon 03-22-2024 Albumin [Mass/Vol] 4.3 g/dL 3.9 - 4.9 g/dL [facility] ALP [Catalytic activity/Vol] 99 U/L 34 - 123 U/L [facility] ALT [Catalytic activity/Vol] 16 U/L 7 - 38 U/L [facility] Anion gap [Moles/Vol] 16 mmol/L High 8 - 15 mmol/L [facility] AST [Catalytic activity/Vol] 27 U/L 13 - 35 U/L [facility] Bilirubin [Mass/Vol] 0.4 mg/dL 0.2 - 1 .3 mg/dL [facility] Calcium [Mass/Vol] 10.4 mg/dL High 8.5 - 10. 2 mg/dL [facility] Chloride [Moles/Vol] 98 mmol/L 98 - 10 7 mmol/L [facility] CO2 [Moles/Vol] 21 mmol/L Low 22 - 30 mmol/L [facility] Creatinine [Mass/Vol] 0.67 mg/dL 0.58 - 0.96 mg/dL [facility] GFR/1.73 sq M.predicted among non-blacks MDRD (S/P/Bld) [Vol rate/Area] 95 mL/min/{1.73_m2} - PINF [facility] Comment on above: Estimated Glomerular Filtration Rate [...] 192 mg/dL High 74 - 99 mg/dL [facility] Comment on above: The [place] Diabete s Association (ADA) provides guidance for [...] Standards of Medical Care in Diabetes 2016, [place] Diabetes Association. Diabetes Care. 2016.39(Suppl 1). Interpretation and review of laboratory results Abnormal [facility] Potassium [Moles/Vol] 4.9 mmol/L 3.7 - 5.1 mmol/L [facility] Protein [Mass/Vol] 7.4 g/dL 6.3 - 8.0 g/dL [facility] Sodium [Moles/Vol] 135 mmol/L Low 136 - 144 mmol/L [facility] Urea nitrogen [Mass/Vol] 17 mg/dL 7 - 21 mg/dL [facility] Free T4 [Mass/Vol]on Interpretation and review of laboratory results Abnormal [facility] No Panel Informationon 03-22 [facility] T4 FREE/FREE THYROXINEon Free T4 [Mass/Vol] 0.7 ng/dL Low 0.9 - 1.7 ng/dL [facility] THYROID STIMULATING HORMONEo n 03-22-2024 TSH Qn 1.890 m[IU]/L [facility] TSH Qnon 03-22-2024 Interpretation and review of laboratory results Normal [facility] CBC W Auto Differential pane l (Bld)on 03-21-2024 Basophils (Bld) [#/Vol] 0.04 10*3/uL [facility] Basophils/100 WBC (Bld) 0.5 % [facility] Differential cell count method Nom (Bld) Auto [facility] Eosinophils (Bld) [#/Vol] 0.18 10*3/uL [facility] Eosinophils/100 WBC (Bld) 2.0 % [facility] Erythrocyte distribution width (RBC) [Ratio] 13.8 % 11.5 - 15.0 % [facility] Hematocrit (Bld) [Volume fraction] 40.9 % 36.0 - 46.0 % [facility] Hemoglobin (Bld) [Mass/Vol] 13.3 g/dL 11.5 - 15.5 g/dL [facility] Immature granulocytes (Bld) [#/Vol] 0.05 10*3/uL [facility] Immature granulocytes/100 WBC (Bld) 0.6 % [facility] Lymphocytes (Bld) [#/Vol] 2.12 10*3/uL [facility] Lymphocytes/100 WBC (Bld) 24.0 % [facility] MCH (RBC) [Entitic mass] 30.9 pg 26.0 - 34.0 pg [facility] MCHC (RBC) [Mass/Vol] 32.5 g/dL 30.5 - 36.0 g/dL [facility] MCV (RBC) [Entitic vol] 94.9 fL 80.0 - 100.0 fL [facility] Monocytes (Bld) [#/Vol] 0.60 10*3/uL [facility] Monocytes/100 WBC (Bld) 6.8 % [facility] Neutrophils (Bld) [#/Vol] 5.85 10*3/uL [facility] Neutrophils/100 WBC (Bld) 66.1 % [facility] Nucleated RBC (Bld) [#/Vol] [facility] Nucleated RBC/100 WBC (Bld) [Ratio] 0.0 % /100 WBC [facility] Platelet mean volume (Bld) [Entitic vol] 9.6 fL 9.0 - 12.7 fL [facility] Platelets (Bld) [#/Vol] 387 10*3/uL [facility] RBC (Bld) [#/Vol] 4.31 10*6/uL 3.90 - 5.20 m/uL [facility] WBC (Bld) [#/Vol] 8.84 10*3/uL [facility] HEMOGLOBIN A1C (POC)on 01-05 HbA1c (Bld) [Mass fraction] 6.5 % Abnormal 4.3 - 5.6 % [facility] GLUCOSE, BLOOD (POC)on 01-01 Glucose [Mass/Vol] 140 mg/dL Abnormal 74 - 99 mg/dL [facility] UA DIP, URINE (POC)on 2023 BILIRUBIN UA (POCT) Negative Negative [facility] CLARITY UA (POCT) Clear [facility] COLOR UA (POCT) Yellow [facility] GLUCOSE UA (POCT) >=1000 Abnormal Negative mg/dL [facility] Hemoglobin Ql (U) Small Abnormal Negative [facility] KETONE UA (POCT) Negative Negative mg/dL [facility] LEUKOCYTES UA (POCT) Negative Negative [facility] NITRITE UA (POCT) Negative Negative [facility] PH UA (POCT) 5.0 4.5 - 8.0 [facility] Protein Ql (U) Negative Negative mg/dL [facility] SPECIFIC GRAVITY UA (POCT) 1.010 1.005 - 1.030 [facility] UROBILINOGEN UA (POCT) 0.2 E.U./dL Lisbeth l E.U./dL [facility] No Panel InformationOrdered By: Sean Bradley on 12-14-2023 Estimated GFR (MDRD) Amer 97 mL/min >60 [facility] Comment on above: GFR Calc Estimated GFR (MDRD) Non-Af Amer 80 mL/min >60 [facility] Comment on above: Non- GFR Calc Serum or plasma creatinine m easurement (mass/volume)Ordered By: Sean Bradley on 12-14-2023 Creatinine [Mass/Vol] 0.76 mg/dL 0.55-1.02 [facility] Comment on above: The validity of the calculated GFR & GFRAA in patients over 70 years has not been determined. Clinical correlation is essential. Serum or plasma urea nitroge n measurement (mass/volume)Ordered By: Sean Bradley on 12-14-2023 Urea nitrogen [Mass/Vol] 22 mg/dL 7-18 [facility] TROPHSon 11-25-2023 Troponin I High Sensitivity 4.86 ng/L Normal 0.00-34.00 [facility] ([place]) Comment on above: Performed By: #### T [facility] ####[address] [address] .Auto Diffon 11-24-2023 Basophil, Absolute 0.1 10 3/mcL Normal 0.0-0.3 [facility] ([place]) Comment on above: Performed By: #### P BNP, BMP, CBC, GFR, ANEU, TROPHS, W, ADIFF #### [address] [address] Basophils/100 WBC (Bld) 0.6 % Normal 0.0-2.5 [facility] ([place]) Comment on above: Performed By: #### P BNP, BMP, CBC, GFR, ANEU, ELIZABETH, W, ADIFF #### [address] [address] Eosinophil, Absolute 0.2 10 3/mcL Normal 0.0-0.7 [facility] ([place]) Comment on above: Performed By: #### P BNP, BMP, CBC, GFR, ANEU, ELIZABETH, GANGA, ADIFF #### [address] [address] Eosinophils/100 WBC (Bld) 2.0 % Normal 0.0-6.0 [facility] ([place]) Comment on above: Performed By: #### P BNP, BMP, CBC, GFR, ANEU, ELIZABETH, GANGA, ADIFF #### [address] [address] Lymphocyte, Absolute 2.6 10 3/mcL Normal 0.9-4.3 [facility] ([place]) Comment on above: Performed By: #### P BNP, BMP, CBC, GFR, ANEU, TROPHPascual, GANGA, ADIFF #### [address] [address] Lymphocytes/100 WBC (Bld) 22.2 % Normal 20.0-40.0 [facility] ([place]) Comment on above: Performed By: #### P BNP, BMP, CBC, GFR, ELIZABETH VARGAS, GANGA, ADIFF #### [address] [address] Monocyte, Absolute 0.9 10 3/mcL Normal 0.1-1.4 [facility] ([place]) Comment on above: Performed By: #### P BNP, BMP, CBC, GFR, ELIZABETH VARGAS MDW, ADIFF #### [address] [address] Monocytes/100 WBC (Bld) 7.6 % Normal 2.0-13.0 [facility] ([place]) Comment on above: Performed By: #### P BNP, BMP, CBC, GFR, ELIZABETH VARGAS MDW, ADIFF #### [address] [address] Neutrophils/100 WBC (Bld) 67.6 % Normal 50.0-75.0 [facility] ([place]) Comment on above: Performed By: #### P BNP, BMP, CBC, GFR, ELIZABETH VARGAS MDW, ADIFF #### [address] [address] .GFRon 11-24-2023 GFR >60 Normal [facility] ([place]) Comment on above: Result Comment: GFR Population [...] CBC, GFR, SAM, GANGA JOHNSON, ADIFF #### [address] [address] GFR Non- >60 Normal [facility] ([place]) Comment on above: Result Comment: GFR Population [...] CBC, GFR, ELIZABETH VARGAS MDW, ADIFF #### [address] [address] .MDWon 11-24-2023 Monocyte Distribution Width 17.57 Normal 0.00-20.00 [facility] ([place]) Comment on above: Result Comment: For ED adult patients suspected of sepsis, MDW<=20.0 does not rule out sepsis or risk of sepsis Performed By: #### P BNP, BMP, CBC, GFR, ELIZABETH VARGAS MDW, ADIFF #### [address] [address] .NEUABSon 11-24-2023 Neutrophil, Absolute 8.0 10 3/mcL Normal 2.3-8.1 [facility] ([place]) Comment on above: Performed By: #### P BNP, BMP, CBC, GFR, ELIZABETH VARGAS MDW, ADIFF #### [address] [address] BMPon 11-24-2023 BUN/Creatinine Ratio 23.4 ratio High 10.0-22.0 [facility] ([place]) Comment on above: Performed By: #### P BNP, BMP, CBC, GFR, ELIZABETH VARGAS MDW, ADIFF #### [address] [address] Calcium [Mass/Vol] 9.9 mg/dL Normal 8.7-10.4 [facility] ([place]) Comment on above: Performed By: #### P BNP, BMP, CBC, GFR, ELIZABETH VARGAS MDW, ADIFF #### [address] [address] Chloride [Moles/Vol] 106 mmol/L Normal 98-110 [facility] ([place]) Comment on above: Performed By: #### P BNP, BMP, CBC, GFR, SAM, GANGA JOHNSON, ADIFF #### [address] [address] CO2 [Moles/Vol] 25 mmol/L Normal 22-32 [facility] ([place]) Comment on above: Performed By: #### P BNP, BMP, CBC, GFR, ELIZABETH VARGAS MDW, ADIFF #### [address] [address] Creatinine [Mass/Vol] 0.64 mg/dL Normal 0.50-1.20 [facility] ([place]) Comment on above: Performed By: #### P BNP, BMP, CBC, GFR, ELIZABETH VARGAS MDW, ADIFF #### [address] [address] Electrolyte Balance 5.0 mEq/L Normal 4.0-15.0 [facility] ([place]) Comment on above: Performed By: #### P BNP, BMP, CBC, GFR, ELIZABETH VARGAS MDW, ADIFF #### [address] [address] Glucose [Mass/Vol] 158 mg/dL High 82-115 [facility] ([place]) Comment on above: Performed By: #### P BNP, BMP, CBC, GFR, ELIZABETH VARGAS MDW, ADIFF #### [address] [address] Potassium [Moles/Vol] 3.9 mmol/L Normal 3.5-5.0 [facility] ([place]) Comment on above: Result Comment: Spec imen slightly hemolyzed. Performed By: #### P BNP, BMP, CBC, GFR, SAM, GANGA JOHNSON, ADIFF #### [place] [phone] Sodium [Moles/Vol] 136 mmol/L Normal 136-145 [facility] ([place]) Comment on above: Performed By: #### P BNP, BMP, CBC, GFR, ELIZABETH VARGAS MDW, ADIFF #### [place] [phone] Urea nitrogen [Mass/Vol] 15.0 mg/dL Normal 8.0-22.0 [facility] ([place]) Comment on above: Performed By: #### P BNP, BMP, CBC, GFR, ELIZABETH VARGAS MDW, ADIFF #### [place] [phone] CBCon 11-24-2023 Erythrocyte distribution width (RBC) [Ratio] 14.3 % Normal 11.5-15.5 [facility] ([place]) Comment on above: Performed By: #### P BNP, BMP, CBC, GFR, ELIZABETH VARGAS MDW, ADIFF #### [place] [address] Hematocrit (Bld) [Volume fraction] 40.9 % Normal 34.0-46.0 [facility] ([place]) Comment on above: Performed By: #### P BNP, BMP, CBC, GFR, ELIZABETH VARGAS MDW, ADIFF #### [place] [phone] Hgb 13.7 G/dL Normal 12.0-16.0 [facility] ([place]) Comment on above: Performed By: #### P BNP, BMP, CBC, GFR, ELIZABETH VARGAS MDW, ADIFF #### [place] [phone] MCH (RBC) [Entitic mass] 29.9 pg Normal 27.0-33.0 [facility] ([place]) Comment on above: Performed By: #### P BNP, BMP, CBC, GFR, ELIZABETH VARGAS MDW, ADIFF #### [place] [phone] MCHC 33.5 G/dL Normal 32.0-36.0 [facility] ([place]) Comment on above: Performed By: #### P BNP, BMP, CBC, GFR, ANEU, TROPHS, W, ADIFF #### [place] [address] MCV (RBC) [Entitic vol] 89.5 fL Normal 80.0-99.0 [facility] ([place]) Comment on above: Performed By: #### P BNP, BMP, CBC, GFR, ANEU, TROPHS, MDW, ADIFF #### [place] [address] Platelet 365 10 3/mcL Normal 150-450 [facility] ([place]) Comment on above: Performed By: #### P BNP, BMP, CBC, GFR, ANEU, TROPHS, W, ADIFF #### [place] [address] Platelet mean volume (Bld) [Entitic vol] 7.7 fL Normal 6.6-10.5 [facility] ([place]) Comment on above: Performed By: #### P BNP, BMP, CBC, GFR, ANEU, TROPHS, W, ADIFF #### [place] [phone] RBC 4.58 10 6/mcL Normal 4.10-5.30 [facility] ([place]) Comment on above: Performed By: #### P BNP, BMP, CBC, GFR, ANEU, TROPHS, MDW, ADIFF #### [place] [phone] WBC 11.8 10 3/mcL High 4.5-10.8 [facility] ([place]) Comment on above: Performed By: #### P BNP, BMP, CBC, GFR, ANEU, TROPHS, W, ADIFF #### [place] [address] LABORATORYOrdered By: SYSTEM SYSTEM on 11-24-2023 Troponin [...] 11-24-2023 Magnesium [Mass/Vol] 1.8 mg/dL Normal 1.6-2.4 [facility] ([place]) Comment on above: Performed By: #### M G #### [place] [address] PBNPon 11-24-2023 Natriuretic peptide B (Bld) [Mass/Vol] 39 pg/mL Normal 0-900 [facility] ([place]) Comment on above: Result Comment: NT-p roBNP results of less than 300 pg/mL effectively rules out acute congestive heart failure with 99% negative predictive value. Performed By: #### P BNP, BMP, CBC, GFR, SAM, GANGA JOHNSON, ADIFF #### [address] [address] TROPHSon 11-24-2023 Troponin I High Sensitivity 4.59 ng/L Normal 0.00-34.00 [facility] ([place]) Comment on above: Performed By: #### P BNP, BMP, CBC, GFR, ANEU, GANGA JOHNSON, ADIFF #### [address] [address] XR CHEST 1 VIEWon 11-24-2023 XR CHEST [...] 11/24/2023 7:08:29 PM Ordering Provider: RICKY Crews [facility] ([place]) CBC W Auto Differential pane l (Bld)on 11-13-2023 Basophils (Bld) [#/Vol] 0.06 10*3/uL <0.11 k/uL [facility] Basophils/100 WBC (Bld) 0.6 % [facility] Differential cell count method Nom (Bld) Auto [facility] Eosinophils (Bld) [#/Vol] 0.08 10*3/uL <0.46 k/uL [facility] Eosinophils/100 WBC (Bld) 0.8 % [facility] Erythrocyte distribution width (RBC) [Ratio] 13.0 % 11.5 - 15.0 % [facility] Hematocrit (Bld) [Volume fraction] 41.7 % 36.0 - 46.0 % [facility] Hemoglobin (Bld) [Mass/Vol] 14.0 g/dL 11.5 - 15.5 g/dL [facility] Immature granulocytes (Bld) [#/Vol] 0.03 10*3/uL <0.10 k/uL [facility] Immature granulocytes/100 WBC (Bld) 0.3 % [facility] Lymphocytes (Bld) [#/Vol] 1.73 10*3/uL 1.00 - 4.00 k/uL [facility] Lymphocytes/100 WBC (Bld) 17.5 % [facility] MCH (RBC) [Entitic mass] 30.9 pg 26.0 - 34.0 pg [facility] MCHC (RBC) [Mass/Vol] 33.6 g/dL 30.5 - 36.0 g/dL [facility] MCV (RBC) [Entitic vol] 92.1 fL 80.0 - 100.0 fL [facility] Monocytes (Bld) [#/Vol] 0.63 10*3/uL <0.87 k/uL [facility] Monocytes/100 WBC (Bld) 6.4 % [facility] Neutrophils (Bld) [#/Vol] 7.35 10*3/uL 1.45 - 7.50 k/uL [facility] Neutrophils/100 WBC (Bld) 74.4 % [facility] Nucleated RBC (Bld) [#/Vol] <0.01 k/uL [facility] Nucleated RBC/100 WBC (Bld) [Ratio] 0.0 /100 WBC [facility] Platelet mean volume (Bld) [Entitic vol] 9.9 fL 9.0 - 12.7 fL [facility] Platelets (Bld) [#/Vol] 368 10*3/uL 150 - 400 k/uL [facility] RBC (Bld) [#/Vol] 4.53 10*6/uL 3.90 - 5.20 m/uL [facility] WBC (Bld) [#/Vol] 9.88 10*3/uL 3.70 - 11.00 k/uL [facility] HbA1c (Bld)on 11-13-2023 Average glucose Estimated from glycated hemoglobin (Bld) [Mass/Vol] 140 mg/dL [facility] HbA1c (Bld) [Mass fraction] 6.5 % High 4.3 - 5.6 % [facility] Basophil percentageOrdered B y: Kenton Stapleton on 07-27-2023 Chloride [Moles/Vol] 104 mmol/L 98-107 [facility] Glucose [Mass/Vol] 120 mg/dL 74-106 [facility] Comment on above: Fasting Glucose resu lt from 100 to 125 mg/dL suggests IMPAIRED HOMEOSTASIS per A.D.A. criteria. Potassium [Moles/Vol] 3.1 mmol/L 3.5-5.1 [facility] Sodium [Moles/Vol] 136 mmol/L 136-145 [facility] Laboratory - Chemistry and C hemistry - challengeOrdered By: Kenton Stapleton on 07-27-2023 CO2 [Moles/Vol] 26.0 mmol/L 21.0-32.0 [facility] Urea nitrogen/Creatinine [Mass ratio] 20.1 mg/mg 10- [facility] No Panel InformationOrdered By: Kenton Stapleton on 07-27-2023 Estimated GFR (MDRD) Amer 117 mL/min >60 [facility] Comment on above: GFR Calc Estimated GFR (MDRD) Non-Af Amer 97 mL/min >60 [facility] Comment on above: Non- GFR Calc Serum or plasma calcium mulugeta urement (mass/volume)Ordered By: Kenton Stalpeton on 07-27-2023 Calcium [Mass/Vol] 9.4 mg/dL 8.5-10.1 [facility] Serum or plasma creatinine m easurement (mass/volume)Ordered By: Kenton Stapleton on 07-27-2023 Creatinine [Mass/Vol] 0.65 mg/dL 0.55-1.02 [facility] Comment on above: The validity of the calculated GFR & GFRAA in patients over 70 years has not been determined. Clinical correlation is essential. Serum or plasma urea nitroge n measurement (mass/volume)Ordered By: Kenton Stapleton on 07-27-2023 Urea nitrogen [Mass/Vol] 13 mg/dL 7-18 [facility] Thin prep Papanicolaou smear with manual screeningOrdered By: Kenton Stapleton on 07-27-2023 Thin prep Papanicolaou smear with manual screening 6 5-15 [facility] Absolute lymphocyte countOrd ered By: Abisai Fuentes on 07-03-2023 Lymphocytes Auto (Unsp spec) [#/Vol] 4.06 10*3/uL 0.83-4.51 [facility] Basophil percentageOrdered B y: Abisai Fuentes on 07-03-2023 Basophils/100 WBC (Bld) 0.3 % 0-1 [facility] Chloride [Moles/Vol] 104 mmol/L 98-107 [facility] Eosinophils/100 WBC (Bld) 2.8 % 0-5 [facility] Glucose [Mass/Vol] 94 mg/dL 74-106 [facility] Neutrophils (Bld) [#/Vol] 5.5 10*3/uL 2.0-7.7 [facility] Neutrophils/100 WBC (Bld) 50.1 % 47-70 [facility] Potassium [Moles/Vol] 3.1 mmol/L 3.5-5.1 [facility] Sodium [Moles/Vol] 135 mmol/L 136-145 [facility] WBC (Bld) [#/Vol] 10.9 10*3/uL 4.4-11.0 [facility] Blood erythrocytes count (nu mber/volume)Ordered By: Abisai Fuentes on 07-03-2023 RBC (Bld) [#/Vol] 3.60 10*6/uL 4.2-5.4 [facility] Blood hemoglobin measurement (mass/volume)Ordered By: Abisai Fuentes on 07-03-2023 Hemoglobin (Bld) [Mass/Vol] 10.9 g/dL 12.0-15.0 [facility] Blood lymphocytes/100 leukoc ytesOrdered By: Abisai Fuentes on 07-03-2023 Lymphocytes/100 WBC (Bld) 37.2 % 19-41 [facility] Blood monocytes/100 leukocyt esOrdered By: Abisai Fuentes on 07-03-2023 Monocytes/100 WBC (Bld) 9.0 % 0-10 [facility] Blood platelet mean volumeOr dered By: Abisai Fuentes on 07-03-2023 Platelet mean volume (Bld) [Entitic vol] 9.4 fL 6.2-12.0 [facility] Determination of erythrocyte mean corpuscular volume (MCV)Ordered By: Abisai Fuentes on 07-03-2023 MCV (RBC) [Entitic vol] 90.6 fL 81-99 [facility] Glucose Glucometer (BldC) [M ass/Vol]Ordered By: Abisai Fuentes on 07-03-2023 Glucose [Mass/Vol] 194 mg/dL 74-106 [facility] Comment on above: MANAGEMENT OF PATIEN T CARE PER NURSING PROTOCOL Hematocrit Auto (Bld) [Volum e fraction]Ordered By: Abisai Fuentes on 07-03-2023 Hematocrit (Bld) [Volume fraction] 32.6 % 37-47 [facility] Laboratory - Chemistry and C hemistry - challengeOrdered By: Abisai Fuentes on 07-03-2023 CO2 [Moles/Vol] 27.0 mmol/L 21.0-32.0 [facility] Urea nitrogen/Creatinine [Mass ratio] 11.3 mg/mg 10-20 [facility] - Hematology and Cell countsOrdered By: Abisai Fuentes on 07-03-2023 Erythrocyte distribution width (RBC) [Entitic vol] 40.6 fL 35.1-43.9 [facility] Erythrocyte distribution width (RBC) [Ratio] 12.3 % 11.6-14.6 [facility] Immature granulocytes/100 WBC (Bld) 0.600 % 0.0-0.9 [facility] Comment on above: IG% - Immature Granu locytes (promyelocytes, myelocytes and metamyelocytes) > 1% indicates that a LEFT SHIFT is Present. MCH (RBC) [Entitic mass] 30.3 pg 27.0-32.0 [facility] Nucleated RBC/100 WBC (Bld) [Ratio] 0 % 0-5 [facility] MCHC Auto (RBC) [Mass/Vol]Or dered By: Abisai Fuentes on 07-03-2023 MCHC (RBC) [Mass/Vol] 33.4 g/dL 32-36 [facility] Comment on above: Delta: 35.5 on 07/02 No Panel InformationOrdered By: Abisai Fuentes on 07-03-2023 Estimated Creatinine Clearance Calc 39.21 ml/min [facility] Estimated GFR (MDRD) Amer 147 mL/min >60 [facility] Comment on above: GFR Calc Estimated GFR (MDRD) Non-Af Amer 121 mL/min >60 [facility] Comment on above: Non- GFR Calc Platelets bldOrdered By: Steff Fuentes on 07-03-2023 Platelets (Bld) [#/Vol] 315 10*3/uL 150-450 [facility] Serum or plasma calcium mulugeta urement (mass/volume)Ordered By: Abisai Fuentes on 07-03-2023 Calcium [Mass/Vol] 7.4 mg/dL 8.5-10.1 [facility] Serum or plasma creatinine m easurement (mass/volume)Ordered By: Abisai Fuentes on 07-03-2023 Creatinine [Mass/Vol] 0.53 mg/dL 0.55-1.02 [facility] Comment on above: The validity of the calculated GFR & GFRAA in patients over 70 years has not been determined. Clinical correlation is essential. Serum or plasma urea nitroge n measurement (mass/volume)Ordered By: Abisai Fuentes on 07-03-2023 Urea nitrogen [Mass/Vol] 6 mg/dL 7-18 [facility] Thin prep Papanicolaou smear with manual screeningOrdered By: Abisai Fuentes on 07-03-2023 Thin prep Papanicolaou smear with manual screening 4 5-15 [facility] Basophil percentageOrdered B y: Halley White on 07-02-2023 Bilirubin [Mass/Vol] 0.60 mg/dL 0.20-1.00 [facility] Comment on above: For patients on eltr ombopag therapy, use of Dimension [place] TBIL is not recommended. Cholesterol [Mass/Vol] 74 mg/dL <200 [facility] Comment on above: <200 mg/dL Desirable 200-240 mg/dL Borderline >240 mg/dL High Risk Protein [Mass/Vol] 4.9 g/dL 6.4-8.2 [facility] Triglyceride [Mass/Vol] 116 mg/dL <199 [facility] Comment on above: The drugs N-Acetylcy steine and Metamizole may falsely depress this assay.Serum Triglycerides Reference Interval Normal <150 mg/dL Borderline high 150 - 199 mg/dL High 200 - 499 mg/dL Very High > or = 500 mg/dL Laboratory - Chemistry and C hemistry - challengeOrdered By: [facility] Tracie 07-02-2023 ALP [Catalytic activity/Vol] 75 U/L 45-117 [facility] ALT [Catalytic activity/Vol] 18 U/L 13-56 [facility] Free T4 [Mass/Vol] 0.68 ng/dL 0.76-1.46 [facility] Globulin (S) [Mass/Vol] 2.4 g/dL 2.2-4.2 [facility] No Panel InformationOrdered By: Halley Tracie on 07-02-2023 Thyroid Stimulating Hormone (TSH) 0.82 uIU/mL 0.358-3.74 [facility] Troponin I High Sensitivity 79 pg/mL 3.0-54.0 [facility] Comment on above: Please Note: New Deanna t Units and Gender Specific Reference Ranges. For more information see Policy Stat Procedure [place] High Sensitivity Troponin (TNIH) and attachments. Serum or plasma albumin mulugeta urement (mass/volume)Ordered By: Halley Hodges 07-02-2023 Albumin [Mass/Vol] 2.5 g/dL 3.2-5.0 [facility] Serum or plasma albumin/glob ulin mass ratioOrdered By: Halley Tracie 07-02-2023 Albumin/Globulin [Mass ratio] 1.0 {ratio} 0.9-2.4 [facility] Serum or plasma cholesterol in HDL measurement (mass/volume)Ordered By: Halley Hodges 07-02-2023 Cholesterol in HDL [Mass/Vol] 42 mg/dL >40 [facility] Comment on above: The drugs N-Acetylcy steine and Metamizole may falsely depress this assay. Reference Range HDL <40 mg/dL Low HDL Cholesterol HDL >or= 60 mg/dL High HDL Cholesterol Serum or plasma cholesterol in VLDL measurement (mass/volume)Ordered By: Halley Hodges 07-02-2023 Cholesterol in VLDL [Mass/Vol] 23 mg/dL 5-40 [facility] Serum or plasma low density lipoprotein (LDL) cholesterol measurement (mass/volume)Ordered By: Halley Hodges 07-02-2023 Cholesterol in LDL [Mass/Vol] 9 mg/dL 0-130 [facility] Stool enteric pathogen panel by probe and target amplification methodOrdered By: Halley Hodges on 07-02-2023 Gastrointestinal pathogens panel ENLL+probe (Stl) [facility] Thin prep Papanicolaou smear with manual screeningOrdered By: Halley Hodges on 07-02-2023 Thin prep Papanicolaou smear with manual screening 16 U/L 15-37 [facility] Basophil percentageOrdered B y: Иван Valencia on 07-01-2023 Basophil percentage 0-5 SEEN /hpf 0-5 [facility] Bilirubin Test strip Ql (U)O rdered By: Иван Valencia on 07-01-2023 Bilirubin Ql (U) Negative Negative [facility] INR in Blood by Coagulation assayOrdered By: Иван Valencia on 07-01-2023 INR Coag (Bld) [Relative time] 1.0 {INR} [facility] Ketones Test strip Ql (U)Ord ered By: Иван Valencia on 07-01-2023 Ketones Ql (U) Negative Negative [facility] Laboratory - Chemistry and C hemistry - challengeOrdered By: Halley Hodges on 07-01-2023 Magnesium [Mass/Vol] 2.3 mg/dL 1.6-2.6 [facility] Laboratory - CoagulationOrde red By: Иван Valencia on 07-01-2023 aPTT Coag (Bld) [Time] 26.0 s 24.1-36.2 [facility] PT Coag (PPP) [Time] 13.5 s 11.7-14.9 [facility] Mucus LM Ql (Urine sed)Order ed By: Иван Valencia on 07-01-2023 Mucus Ql (Urine sed) 0 SEEN /hpf [facility] Nitrite Test strip Ql (U)Ord ered By: Иван Valencia on 07-01-2023 Nitrite Ql (U) Negative Negative [facility] Protein Test strip Ql (U)Ord ered By: Иван Valencia on 07-01-2023 Protein Ql (U) Negative Negative [facility] Respiratory pathogens detect ion panel by molecular detection methodOrdered By: Halley Hodges on 07-01-2023 Respiratory pathogens DNA and RNA panel NELL+probe (Resp) [facility] Serum procalcitonin measurem entOrdered By: Halley Hodges on 07-01-2023 Procalcitonin [Mass/Vol] ng/mL 0.00-0.09 [facility] Comment on above: A procalcitonin (PCT [...] Ql (Urine sed) 0-5 SEEN /hpf 5-10 [facility] Urine blood detectionOrdered By: Иван Valencia on 07-01-2023 RBC Ql (U) 10 /ul Negative [facility] RBC Ql (U) 0 SEEN /hpf 0-5 [facility] Urine clarityOrdered By: Nimesh Valencia on 07-01-2023 Clarity (U) Clear Clear [facility] Urine color determinationOrd ered By: Иван Valencia on 07-01-2023 Color (U) Yellow Yellow [facility] Urine glucose detectionOrder ed By: Иван Valencia on 07-01-2023 Glucose Ql (U) Normal mg/dl Normal [facility] Urine leukocyte esterase det ection by dipstickOrdered By: Иван Valencia on 07-01-2023 Leukocyte esterase Test strip Ql (U) Negative Negative [facility] Urine pHOrdered By: Иван Valencia on 07-01-2023 pH (U) 6.5 [pH] 5.0 - 8.0 [facility] Urine sediment bacteria coun t by microscopy (number/high power field)Ordered By: Иван Valencia on 07-01-2023 Bacteria LM.HPF (Urine sed) [#/Area] 0 /[HPF] None Seen [facility] Urine specific gravity measu rementOrdered By: Иван Valencia on 07-01-2023 Specific gravity (U) [Rel density] 1.010 1.002-1.03 0 [facility] Urobilinogen Auto test strip Ql (U)Ordered By: Иван Valencia on 07-01-2023 Urobilinogen Ql (U) Normal mg/dl Normal [facility] Absolute lymphocyte countOrd ered By: Dr. Dallas on 11-04-2022 Lymphocytes Auto (Unsp spec) [#/Vol] 2.30 10*3/uL 0.83-4.51 [facility] Basophil percentageOrdered B y: Dr. Dallas on 11-04-2022 Basophils/100 WBC (Bld) 0.6 % 0-1 [facility] Chloride [Moles/Vol] 104 mmol/L 98-107 [facility] Eosinophils/100 WBC (Bld) 2.7 % 0-5 [facility] Glucose [Mass/Vol] 174 mg/dL 74-106 [facility] Comment on above: Fasting Glucose resu lt greater than or equal to 126 mg/dL suggests DIABETES MELLITUS per A.D.A. criteria. Neutrophils (Bld) [#/Vol] 6.2 10*3/uL 2.0-7.7 [facility] Neutrophils/100 WBC (Bld) 64.4 % 47-70 [facility] Potassium [Moles/Vol] 3.9 mmol/L 3.5-5.1 [facility] Sodium [Moles/Vol] 137 mmol/L 136-145 [facility] WBC (Bld) [#/Vol] 9.7 10*3/uL 4.4-11.0 [facility] Blood erythrocytes count (nu mber/volume)Ordered By: Dr. Dallas on 11-04-2022 RBC (Bld) [#/Vol] 4.71 10*6/uL 4.2-5.4 [facility] Blood hemoglobin measurement (mass/volume)Ordered By: Dr. Dallas on 11-04-2022 Hemoglobin (Bld) [Mass/Vol] 14.2 g/dL 12.0-15.0 [facility] Blood lymphocytes/100 leukoc ytesOrdered By: Dr. Dallas on 11-04-2022 Lymphocytes/100 WBC (Bld) 23.8 % 19-41 [facility] Blood monocytes/100 leukocyt esOrdered By: Dr. Dallas on 11-04-2022 Monocytes/100 WBC (Bld) 8.0 % 0-10 [facility] Blood platelet mean volumeOr dered By: Dr. Dallas on 11-04-2022 Platelet mean volume (Bld) [Entitic vol] 9.4 fL 6.2-12.0 [facility] Determination of erythrocyte mean corpuscular volume (MCV)Ordered By: Dr. Dallas on 11-04-2022 MCV (RBC) [Entitic vol] 92.6 fL 81-99 [facility] Glucose Glucometer (dC) [M ass/Vol]Ordered By: Dr. Dallas on 11-04-2022 Glucose [Mass/Vol] 175 mg/dL 74-106 [facility] Comment on above: MANAGEMENT OF PATIEN T CARE PER NURSING PROTOCOL Hematocrit Auto (Bld) [Volum e fraction]Ordered By: Dr. Dallas on 11-04-2022 Hematocrit (Bld) [Volume fraction] 43.6 % 37-47 [facility] - Chemistry and C hemistry - challengeOrdered By: Dr. Dallas on 11-04-2022 CO2 [Moles/Vol] 25.0 mmol/L 21.0-32.0 [facility] Urea nitrogen/Creatinine [Mass ratio] 20.9 mg/mg 10-20 [facility] - Hematology and Cell countsOrdered By: Dr. Dallas on 11-04-2022 Erythrocyte distribution width (RBC) [Entitic vol] 44.3 fL 35.1-43.9 [facility] Erythrocyte distribution width (RBC) [Ratio] 13.1 % 11.6-14.6 [facility] Immature granulocytes/100 WBC (Bld) 0.500 % 0.0-0.9 [facility] Comment on above: IG% - Immature Granu locytes (promyelocytes, myelocytes and metamyelocytes) > 1% indicates that a LEFT SHIFT is Present. MCH (RBC) [Entitic mass] 30.1 pg 27.0-32.0 [facility] Nucleated RBC/100 WBC (Bld) [Ratio] 0 % 0-5 [facility] Auto (RBC) [Mass/Vol]Or dered By: Dr. Dallas on 11-04-2022 MCHC (RBC) [Mass/Vol] 32.6 g/dL 32-36 [facility] No Panel InformationOrdered By: Dr. Dallas on 11-04-2022 Estimated Creatinine Clearance Calc 39.21 ml/min [facility] Estimated GFR (MDRD) Amer 135 mL/min >60 [facility] Comment on above: GFR Calc Estimated GFR (MDRD) Non-Af Amer 111 mL/min >60 [facility] Comment on above: Non- GFR Calc Platelets bldOrdered By: Dr. Dallas on 11-04-2022 Platelets (Bld) [#/Vol] 325 10*3/uL 150-450 [facility] Serum or plasma calcium mulugeta urement (mass/volume)Ordered By: Dr. Dallas on 11-04-2022 Calcium [Mass/Vol] 9.4 mg/dL 8.5-10.1 [facility] Serum or plasma creatinine m easurement (mass/volume)Ordered By: Dr. Dallas on 11-04-2022 Creatinine [Mass/Vol] 0.58 mg/dL 0.55-1.02 [facility] Comment on above: The validity of the calculated GFR & GFRAA in patients over 70 years has not been determined. Clinical correlation is essential. Serum or plasma urea nitroge n measurement (mass/volume)Ordered By: Dr. Dlalas on 11-04-2022 Urea nitrogen [Mass/Vol] 12 mg/dL 7-18 [facility] Thin prep Papanicolaou smear with manual screeningOrdered By: Dr. Dallas on 11-04-2022 Thin prep Papanicolaou smear with manual screening 8 5-15 [facility] Basophil percentageOrdered B y: Dr. Mirza on 11-03-2022 Cholesterol [Mass/Vol] 183 mg/dL <200 [facility] Comment on above: <200 mg/dL Desirable 200-240 mg/dL Borderline >240 mg/dL High Risk Triglyceride [Mass/Vol] 146 mg/dL <199 [facility] Comment on above: The drugs N-Acetylcy steine and Metamizole may falsely depress this assay.Serum Triglycerides Reference Interval Normal <150 mg/dL Borderline high 150 - 199 mg/dL High 200 - 499 mg/dL Very High > or = 500 mg/dL Serum or plasma cholesterol in HDL measurement (mass/volume)Ordered By: Dr. Mirza on 11-03-2022 Cholesterol in HDL [Mass/Vol] 55 mg/dL >40 [facility] Comment on above: The drugs N-Acetylcy steine and Metamizole may falsely depress this assay. Reference Range HDL <40 mg/dL Low HDL Cholesterol HDL >or= 60 mg/dL High HDL Cholesterol Serum or plasma cholesterol in VLDL measurement (mass/volume)Ordered By: Dr. Mirza on 11-03-2022 Cholesterol in VLDL [Mass/Vol] 29 mg/dL 5-40 [facility] Serum or plasma low density lipoprotein (LDL) cholesterol measurement (mass/volume)Ordered By: Dr. Mirza on 11-03-2022 Cholesterol in LDL [Mass/Vol] 99 mg/dL 0-130 [facility] Whole blood hemoglobin A1c/t otal hemoglobin ratio (mass fraction)Ordered By: Dr. Mirza on 11-03-2022 HbA1c (Bld) [Mass fraction] 7.0 % 3.8-5.6 [facility] Comment on above: Normal < 5.7 % Predi abetic 5.7 - 6.4 % Diabetic >or= 6.5 % Please note range changes. INR in Blood by Coagulation assayOrdered By: Dr. Chanel on 11-02-2022 INR Coag (Bld) [Relative time] 1.0 {INR} [facility] - CoagulationOrde red By: Dr. Chanel on 11-02-2022 aPTT Coag (Bld) [Time] 29.8 s 24.1-36.2 [facility] PT Coag (PPP) [Time] 12.9 s 11.7-14.9 [facility] No Panel InformationOrdered By: Dr. Mirza on 11-02-2022 Troponin I High Sensitivity 12 pg/mL 3.0-54.0 [facility] Comment on above: Please Note: New Deanna t Units and Gender Specific Reference Ranges. For more information see Policy Stat Procedure [place] High Sensitivity Troponin (TNIH) and attachments. Basophil percentageon 2021 Basophil percentage < 0.9 mg/dL 0.55-1.02 [facility] Work Phone: No Panel Informationon 04-09 Bedside Estimated GFR (eGFR) > 60.0000 mL/min >60 [facility] Work Phone: XR ANKLE GENERAL 3V AP/LAT/O BL LEFTon 02-28-2022 [facility] XR ANKLE GENERAL 3V AP/LAT/O BL LEFTon 02-10-2022 [facility] XR ANKLE GENERAL 3V AP/LAT/O BL LEFTon 01-23-2022 [facility] XR Ankle - left AP and Later al and obliqueon 01-23-2022 IMPRESSION: Possible small fracture involving the inferior aspect of the lateral malleolus. Calcaneal spurring. [employer] Utility Worker: AUGUSTIN Transcribe Date/Time: Jan 23 2022 5:55P [...] malleolus. ZZZ_DO_[id number]_ USE_DIVISIO N OF RADIOLOGY Provider, [facility] - [...] aspect of the lateral malleolus. Calcaneal spurring. Extrusion Utility Worker: PSCB Transcribe Date/Time: Jan 23 2022 5:55P Dictated by : RODRIGO GONSALVES MD This examination was interpreted and the report reviewed and electronically signed by: RODRIGO GONSALVES MD on Jan 23 2022 5:59PM EST [facility] Radiology Study observation (narrative) [facility] XR Ankle - left AP and Later al and obliqueOrdered By: Ccf Provider on 01-23-2022 [facility] Glucose,Bedsideon 12-28-2020 Glucose [Mass/Vol] 344 mg/dL High 70-100 [facility] Comment on above: Result Comment: Test performed by glucose meter. Results may be 10%-15% lower than serum/plasma values. (CLIA ID [id number]) Performed By: #### B GLU #### [facility] [employer] [facility] [address] [place] [address] Glucose [Mass/Vol] 200 mg/dL High 70-100 [facility] Comment on above: Result Comment: Test performed by glucose meter. Results may be 10%-15% lower than serum/plasma values. (CLIA ID [id number]) Performed By: #### B GLU #### [facility] [employer] [facility] [address] [place] [phone] POCT Glucoseon 12-28-2020 Glucose [Mass/Vol] 344 mg/dL High 70 - 100 mg/dL [facility] Work Phone: Comment on above: Test performed by gl ucose meter. Results may be 10%-15% lower than serum/plasma values. (CLIA ID [id number]) Interpretation and review of laboratory results Abnormal [employer] Work Phone: Test Performed by [employer] [facility], [address] [place] [address] [employer] Work Phone: Glucose [Mass/Vol] 200 mg/dL High 70 - 100 mg/dL [employer] Work Phone: Comment on above: Test performed by gl ucose meter. Results may be 10%-15% lower than serum/plasma values. (CLIA ID [id number]) Interpretation and review of laboratory results Abnormal [employer] Work Phone: Test Performed by [employer], [address] [place] [address] [employer] Work Phone: COVID-19on 12-27-2020 SARS-CoV-2 Not Detected. Not Detected [employer] Work Phone: Comment on above: Not Detected. Expected Result: Not Detected _ Real-time, RT-PCR performed on the [employer] System by the [facility] Negative results do not preclude SARS-CoV-2 infection and should not be used as the sole basis for treatment or other patient management decisions. This assay was developed and its performance characteristics determined by the [facility]. The U. S. Food and Drug Administration has not approved or cleared this test; however, FDA clearance or approval is not currently required for clinical use. Test Performed by [employer], [address] [place] [address] Glucose,Bedsideon 12-27-2020 Glucose [Mass/Vol] 124 mg/dL High 70-100 [facility] [employer] Comment on above: Result Comment: Test performed by glucose meter. Results may be 10%-15% lower than serum/plasma values. (CLIA ID [id number]) Performed By: #### B GLU #### [email or web address] [place] [address] Glucose [Mass/Vol] 197 mg/dL High 70-100 [facility] Comment on above: Result Comment: Test performed by glucose meter. Results may be 10%-15% lower than serum/plasma values. (CLIA ID [id number]) Performed By: #### B GLU #### [email or web address] [address] [place] [address] Glucose [Mass/Vol] 215 mg/dL High 70-100 [facility] [employer] [facility] Comment on above: Result Comment: Test performed by glucose meter. Results may be 10%-15% lower than serum/plasma values. (CLIA ID [id number]) Performed By: #### B GLU #### [email or web address] [address] [place] [address] POCT Glucoseon 12-27-2020 Glucose [Mass/Vol] 124 mg/dL High 70 - 100 mg/dL [employer] Work Phone: Comment on above: Test performed by gl ucose meter. Results may be 10%-15% lower than serum/plasma values. (CLIA ID [id number]) Interpretation and review of laboratory results Abnormal [facility] Work Phone: Test Performed by [employer], [address] [place] [address] [facility] Work Phone: [phone] Glucose [Mass/Vol] 197 mg/dL High 70 - 100 mg/dL [facility] Work Phone: [phone] Comment on above: Test performed by gl ucose meter. Results may be 10%-15% lower than serum/plasma values. (CLIA ID [id number]) Interpretation and review of laboratory results Abnormal [facility] Work Phone: Test Performed by [employer], [address] [place] [address] [facility] Work Phone: Glucose [Mass/Vol] 215 mg/dL High 70 - 100 mg/dL [facility] Work Phone: [phone] Comment on above: Test performed by gl ucose meter. Results may be 10%-15% lower than serum/plasma values. (CLIA ID [id number]) Interpretation and review of laboratory results Abnormal [facility] Work Phone: Test Performed by [employer], [facility] [place] [address] [facility] Work Phone: [id number] 12-27-2020 SARS-CoV-2 (COVID-19) RNA NELL+probe Ql (Unsp spec) SARS-CoV-2 --> Status: F Not Detected. Expected Result: Not Detected _ Real-time, RT-PCR performed on the [employer] System by the [facility] Negative results do not preclude SARS-CoV-2 infection and should not be used as the sole basis for treatment or other patient management decisions. This assay was developed and its performance characteristics determined by the [facility]. The U. S. Food and Drug Administration has not approved or cleared this test; however, FDA clearance or approval is not currently required for clinical use. Expected Result: Not Detected _ Real-time, RT-PCR performed on the [employer] System by the [facility] Negative results do not preclude SARS-CoV-2 infection and should not be used as the sole basis for treatment or other patient management decisions. This assay was developed and its performance characteristics determined by the [facility]. The U. S. Food and Drug Administration has not approved or cleared this test; however, FDA clearance or approval is not currently required for clinical use. Normal [facility] Comment on above: Performed By: #### B GLU #### [facility] [address] [place] [address] Glucose,Bedsideon 12-26-2020 Glucose [Mass/Vol] 186 mg/dL High 70-100 [facility] Comment on above: Result Comment: Test performed by glucose meter. Results may be 10%-15% lower than serum/plasma values. (CLIA ID [id number]) Performed By: #### B GLU #### [facility] [address] [place] [address] Glucose [Mass/Vol] 213 mg/dL High 70-100 [facility] Comment on above: Result Comment: Test performed by glucose meter. Results may be 10%-15% lower than serum/plasma values. (CLIA ID [id number]) Performed By: #### B GLU #### [facility] [address] [place] [address] Glucose [Mass/Vol] 190 mg/dL High 70-100 [facility] Comment on above: Result Comment: Test performed by glucose meter. Results may be 10%-15% lower than serum/plasma values. (CLIA ID [id number]) Performed By: #### M DIFF, HEMDF #### [facility] [address] [place] [address] Glucose [Mass/Vol] 238 mg/dL High 70-100 [facility] Comment on above: Result Comment: Test performed by glucose meter. Results may be 10%-15% lower than serum/plasma values. (CLIA ID [id number]) Performed By: #### B GLU #### [place] [address] [place] [address] Glucose [Mass/Vol] 179 mg/dL High 70-100 [facility] Comment on above: Result Comment: Test performed by glucose meter. Results may be 10%-15% lower than serum/plasma values. (CLIA ID [id number]) Performed By: #### B GLU #### [facility] [address] [place] [address] POCT Glucoseon 12-26-2020 Glucose [Mass/Vol] 186 mg/dL High 70 - 100 mg/dL [facility] Work Phone: Comment on above: Test performed by gl ucose meter. Results may be 10%-15% lower than serum/plasma values. (CLIA ID [id number]) Interpretation and review of laboratory results Abnormal [facility] Work Phone: Test Performed by [employer], [address] [place] [address] [facility] Work Phone: Glucose [Mass/Vol] 213 mg/dL High 70 - 100 mg/dL [facility] Work Phone: Comment on above: Test performed by gl ucose meter. Results may be 10%-15% lower than serum/plasma values. (CLIA ID [id number]) Interpretation and review of laboratory results Abnormal [facility] Work Phone: Test Performed by [employer], [address] [place] [address] [facility] Work Phone: Glucose [Mass/Vol] 190 mg/dL High 70 - 100 mg/dL [facility] Work Phone: Comment on above: Test performed by gl ucose meter. Results may be 10%-15% lower than serum/plasma values. (CLIA ID [id number]) Interpretation and review of laboratory results Abnormal [facility] Work Phone: Test Performed by [employer], [facility] [place] [address] [facility] Work Phone: Glucose [Mass/Vol] 238 mg/dL High 70 - 100 mg/dL [facility] Work Phone: Comment on above: Test performed by gl ucose meter. Results may be 10%-15% lower than serum/plasma values. (CLIA ID [id number]) Interpretation and review of laboratory results Abnormal [facility] Work Phone: Test Performed by [employer], [place] [address] [facility] Work Phone: Glucose,Bedsideon 12-25-2020 Glucose [Mass/Vol] 250 mg/dL High 70-100 [facility] Comment on above: Result Comment: Test performed by glucose meter. Results may be 10%-15% lower than serum/plasma values. (CLIA ID [id number]) Performed By: #### B GLU #### [employer] [place] [address] Glucose [Mass/Vol] 252 mg/dL High 70-100 [facility] Comment on above: Result Comment: Test performed by glucose meter. Results may be 10%-15% lower than serum/plasma values. (CLIA ID [id number]) Performed By: #### B GLU #### [employer] [place] [address] Glucose [Mass/Vol] 218 mg/dL High 70-100 [facility] Comment on above: Result Comment: Test performed by glucose meter. Results may be 10%-15% lower than serum/plasma values. (CLIA ID [id number]) Performed By: #### B GLU #### [employer] [place] [address] POCT Glucoseon 12-25-2020 Glucose [Mass/Vol] 179 mg/dL High 70 - 100 mg/dL [facility] Work Phone: Comment on above: Test performed by gl ucose meter. Results may be 10%-15% lower than serum/plasma values. (CLIA ID [id number]) Interpretation and review of laboratory results Abnormal [employer] Work Phone: [phone] Test Performed by [employer], [address] [place] [address] [facility] Work Phone: [phone] Glucose [Mass/Vol] 250 mg/dL High 70 - 100 mg/dL [facility] Work Phone: [phone] Comment on above: Test performed by gl ucose meter. Results may be 10%-15% lower than serum/plasma values. (CLIA ID [id number]) Interpretation and review of laboratory results Abnormal [employer] Work Phone: [phone] Test Performed by [employer], [address] [place] [address] [facility] Work Phone: [phone] Glucose [Mass/Vol] 252 mg/dL High 70 - 100 mg/dL [facility] Work Phone: [phone] Comment on above: Test performed by gl ucose meter. Results may be 10%-15% lower than serum/plasma values. (CLIA ID [id number]) Interpretation and review of laboratory results Abnormal [facility] Work Phone: [phone] Test Performed by [employer], [address] [place] [address] [facility] Work Phone: [phone] Glucose [Mass/Vol] 218 mg/dL High 70 - 100 mg/dL [facility] Work Phone: [phone] Comment on above: Test performed by gl ucose meter. Results may be 10%-15% lower than serum/plasma values. (CLIA ID [id number]) Interpretation and review of laboratory results Abnormal [employer] Work Phone: [phone] Test Performed by [employer] [address] [facility] Work Phone: [phone] CBC Auto [...] (Bld) 1.5 % 1.0 - 6.0 % [employer] Work Phone: [phone] Erythrocyte distribution width (RBC) [Ratio] 13.6 % 11.5 - 14.5 % [employer] Work Phone: () 222 Granulocytes/100 WBC (Bld) 59.5 % 40.0 - 80.0 % [facility] Work Phone: [phone] Hematocrit (Bld) [Volume fraction] 37.2 % 35.0 - 47.0 % [employer] Work Phone: ) 222 Hemoglobin (Bld) [Mass/Vol] 12.5 g/dL 11.7 - 16.0 g/dL [employer] Work Phone: [phone] Interpretation and review of laboratory results Abnormal [employer] Work Phone: [phone] Lymphocytes (Bld) [#/Vol] [...] vol] 90.3 fL 79.0 - 98.0 fL [employer] Work Phone: Monocytes (Bld) [#/Vol] 1.1 10*3/uL High 0.0 - 0.8 10*3/uL [employer] Work Phone: Monocytes/100 WBC (Bld) 7.8 % 2.0 - 10.0 % [employer] Work Phone: Platelet mean volume (Bld) [Entitic vol] 7.7 fL 7.4 - 10.4 fL [employer] Work Phone: Platelets (Bld) [#/Vol] 278 10*3/uL 140 - 440 10*3/uL [employer] Work Phone: RBC (Bld) [#/Vol] 4.12 10*6/uL 3.80 - 5.20 10*6/uL [employer] Work Phone: WBC (Bld) [#/Vol] 14.5 10*3/uL High 3.6 - 10.7 10*3/uL [employer] Work Phone: Test Performed by [facility], [address] [place] [address] [facility] Work Phone: [phone] Glucose, Bedsideon 1 Confirmation see below Normal [facility] Comment on above: Result Comment: No c onfirmation received. Performed By: #### G LUB #### [facility] [employer] [address] [place] [address] Glucose,Bedside > 450 High 70-100 [facility] Comment on above: Result Comment: Test performed by glucose meter. Results may be 10%-15% lower than serum/plasma values. (CLIA ID [id number]) Performed By: #### G LUB #### [email or web address] [address] [place] [address] Glucose,Bedsideon 12-24-2020 Glucose [Mass/Vol] 242 mg/dL High 70-100 [facility] Comment on above: Result Comment: Test performed by glucose meter. Results may be 10%-15% lower than serum/plasma values. (CLIA ID [id number]) Performed By: #### M DIFF, HEMDF #### [facility] [address] [place] [address] Glucose [Mass/Vol] 314 mg/dL [address] Comment on above: Result Comment: Test performed by glucose meter. Results may be 10%-15% lower than serum/plasma values. (CLIA ID [id number]) Performed By: #### M DIFF, HEMDF #### [facility] [address] [place] [address] Glucose [Mass/Vol] 192 mg/dL [address] Comment on above: Result Comment: Test performed by glucose meter. Results may be 10%-15% lower than serum/plasma values. (CLIA ID [id number]) Performed By: #### M DIFF, HEMDF #### [facility] [address] [place] [address] Glucose [Mass/Vol] 189 mg/dL [address] Comment on above: Result Comment: Test performed by glucose meter. Results may be 10%-15% lower than serum/plasma values. (CLIA ID [id number]) Performed By: #### B GLU #### [address] [place] [address] Glucose [Mass/Vol] 201 mg/dL [address] Comment on above: Result Comment: Test performed by glucose meter. Results may be 10%-15% lower than serum/plasma values. (CLIA ID [id number]) Performed By: #### M DIFF, HEMDF #### [address] [place] [address] Glucose [Mass/Vol] 247 mg/dL [address] Comment on above: Result Comment: Test performed by glucose meter. Results may be 10%-15% lower than serum/plasma values. (CLIA ID [id number]) Performed By: #### M DIFF, HEMDF #### [facility] [address] [place], [place] Hemogram w/ Autodiffon 12-24 Abs Baso Cnt 0.1 10*3/uL Normal 0.0-0.2 [facility] Comment on above: Performed By: #### B GLU #### [facility] [address] [place], [place] Abs Neutrophile Cnt 8.6 10*3/uL High 1.8-7.0 [facility] Comment on above: Performed By: #### B GLU #### [address] [place], [place] Basophils/100 WBC (Bld) 0.4 % Normal 0.0-2.0 [facility] Comment on above: Performed By: #### B GLU #### [address] [place], [place] Eosinophils (Bld) [#/Vol] 0.2 10*3/uL Normal 0.0-0.5 [facility] Comment on above: Performed By: #### B GLU #### [address] [place], [place] Eosinophils/100 WBC (Bld) 1.5 % Normal 1.0-6.0 [facility] Comment on above: Performed By: #### B GLU #### [address] [place], [place] Erythrocyte distribution width (RBC) [Ratio] 13.6 % Normal 11.5-14.5 [facility] Comment on above: Performed By: #### B GLU #### [address] [place] [address] Granulocytes/100 WBC (Bld) 59.5 % Normal 40.0-80.0 [facility] Comment on above: Performed By: #### B GLU #### [address] [place], [place] Hematocrit (Bld) [Volume fraction] 37.2 % Normal 35.0-47.0 [facility] Comment on above: Performed By: #### B GLU #### [facility] [address] [place], [place] Hemoglobin (Bld) [Mass/Vol] 12.5 g/dL Normal 11.7-16.0 [facility] Comment on above: Performed By: #### B GLU #### [facility] [address] [place], [place] Lymphocytes (Bld) [#/Vol] 4.5 10*3/uL High 1.0-4.3 [facility] Comment on above: Performed By: #### B GLU #### [address] [place], [place] Lymphocytes/100 WBC (Bld) 30.8 % Normal 20.0-40.0 [facility] Comment on above: Performed By: #### B GLU #### [address] [place], [place] MCH (RBC) [Entitic mass] 30.4 pg Normal 26.0-34.0 [facility] Comment on above: Performed By: #### B GLU #### [address] [place], [place] MCHC 33.6 % Normal 32.0-36.0 [facility] Comment on above: Performed By: #### B GLU #### [address] [place], [place] MCV (RBC) [Entitic vol] 90.3 fL Normal 79.0-98.0 [facility] Comment on above: Performed By: #### B GLU #### [address] [place], [place] Monocytes (Bld) [#/Vol] 1.1 10*3/uL High 0.0-0.8 [facility] Comment on above: Performed By: #### B GLU #### [place] [address] [place], [place] Monocytes/100 WBC (Bld) 7.8 % Normal 2.0-10.0 [facility] Comment on above: Performed By: #### B GLU #### [place] [address] [place], [place] Platelet mean volume (Bld) [Entitic vol] 7.7 fL Normal 7.4-10.4 [facility] Comment on above: Performed By: #### B GLU #### [facility] [address] [place], [place] Platelets (Bld) [#/Vol] 278 10*3/uL Normal 140-440 [facility] Comment on above: Performed By: #### B GLU #### [facility] [address] [place], [place] RBC (Bld) [#/Vol] 4.12 10*6/uL Normal 3.80-5.20 [facility] Comment on above: Performed By: #### B GLU #### [place] [place], [place] WBC (Bld) [#/Vol] 14.5 10*3/uL High 3.6-10.7 [facility] Comment on above: Performed By: #### B GLU #### [facility] [address] [place], [place] POC Glucose, Whole Bloodon 0 12-24-2020 Glucose [Mass/Vol] mg/dL High 70 - 100 mg/dL [facility] Work Phone: Comment on above: Test performed by gl ucose meter. Results may be 10%-15% lower than serum/plasma values. (CLIA ID [id number]) Interpretation and review of laboratory results Abnormal [facility] Work Phone: Sodium [Moles/Vol] see below [facility] Work Phone: Comment on above: No confirmation rece ived. Test Performed by [facility], [address] [place] [address] [facility] Work Phone: POCT Glucoseon 12-24-2020 Glucose [Mass/Vol] 242 mg/dL High 70 - 100 mg/dL [facility] Work Phone: Comment on above: Test performed by gl ucose meter. Results may be 10%-15% lower than serum/plasma values. (CLIA ID [id number]) Interpretation and review of laboratory results Abnormal [facility] Work Phone: [phone] Test Performed by [employer], [place] [address] [facility] Work Phone: [phone] Glucose [Mass/Vol] 314 mg/dL High 70 - 100 mg/dL [facility] Work Phone: [phone] Comment on above: Test performed by gl ucose meter. Results may be 10%-15% lower than serum/plasma values. (CLIA ID [id number]) Interpretation and review of laboratory results Abnormal [facility] Work Phone: Test Performed by [employer], [place] [address] [facility] Work Phone: [phone] Glucose [Mass/Vol] 192 mg/dL High 70 - 100 mg/dL [facility] Work Phone: [phone] Comment on above: Test performed by gl ucose meter. Results may be 10%-15% lower than serum/plasma values. (CLIA ID [id number]) Interpretation and review of laboratory results Abnormal [facility] Work Phone: [phone] Test Performed by [employer], [facility] [place] [address] [facility] Work Phone: [phone] Glucose [Mass/Vol] 189 mg/dL High 70 - 100 mg/dL [facility] Work Phone: [phone] Comment on above: Test performed by gl ucose meter. Results may be 10%-15% lower than serum/plasma values. (CLIA ID [id number]) Interpretation and review of laboratory results Abnormal [facility] Work Phone: [phone] Test Performed by [employer], [place] [address] [facility] Work Phone: [phone] Glucose [Mass/Vol] 201 mg/dL High 70 - 100 mg/dL [facility] Work Phone: Comment on above: Test performed by gl ucose meter. Results may be 10%-15% lower than serum/plasma values. (CLIA ID [id number]) Interpretation and review of laboratory results Abnormal [facility] Work Phone: [phone] Test Performed by [employer], [address] [place] [address] [facility] Work Phone: 1 Glucose [Mass/Vol] 247 mg/dL High 70 - 100 mg/dL [employer] Work Phone: [phone]( Comment on above: Test performed by gl ucose meter. Results may be 10%-15% lower than serum/plasma values. (CLIA ID [id number]) Interpretation and review of laboratory results Abnormal [employer] Work Phone: 1() Test Performed by [employer], [address] [place] [address] [employer] Work Phone: 1 TSH without Reflexon 021 TSH Qn 3.200 u[IU]/mL 0.465 - 4.680 u[IU]/mL [employer] Work Phone: 1 Test Performed by [employer], [address] [place] [address] [employer] Work Phone: 1() Thyroid Stim. Hormoneon 11-27 Thyroid Stim. Hormone 3.200 u[IU]/mL Normal 0.46 5-4.68 0 [employer] Comment on above: Performed By: #### M DIFF, HEMDF #### [employer] [address] [place] [phone] CBC Auto Differentialon 11-27 Absolute Baso # 0.1 10*3/uL 0.0 - 0.2 10*3/uL [employer] Work Phone: 1() 222 Absolute Neut # 13.3 10*3/uL High 1.8 - 7.0 10*3/uL [employer] Work Phone: 1) 222 Basophils/100 WBC (Bld) 0.8 % 0.0 - 2.0 % [employer] Work Phone: ) 222 Eosinophils (Bld) [#/Vol] 0.0 10*3/uL 0.0 - 0.5 10*3/uL [employer] Work Phone: 1) 222 Eosinophils/100 WBC (Bld) 0.0 % Low 1.0 - 6.0 % [employer] Work Phone: 1) 222 Erythrocyte distribution width (RBC) [Ratio] 13.4 % 11.5 - 14.5 % [employer] Work Phone: 1) 222 Granulocytes/100 WBC (Bld) 85.4 % High 40.0 - 80.0 % [employer] Work Phone: 222 Hematocrit (Bld) [Volume fraction] 37.0 % 35.0 - 47.0 % [employer] Work Phone: 1 222 Hemoglobin (Bld) [Mass/Vol] 12.6 g/dL 11.7 - 16.0 g/dL [employer] Work Phone: 1) 222 Interpretation and review of laboratory results Abnormal [employer] Work Phone: 222 Lymphocytes (Bld) [#/Vol] 1.4 10*3/uL 1.0 - 4.3 10*3/uL [employer] Work Phone: 1) 222 Lymphocytes/100 WBC (Bld) 8.9 % Low 20.0 - 40.0 % [employer] Work Phone: 1) 222 MCH (RBC) [Entitic mass] 30.8 pg 26.0 - 34.0 pg [employer] Work Phone: ) 222 MCHC (RBC) [Mass/Vol] 34.1 % 32.0 - 36.0 % [employer] Work Phone: ) 222 MCV (RBC) [Entitic vol] 90.3 fL 79.0 - 98.0 fL [employer] Work Phone: ) 222 Monocytes (Bld) [#/Vol] 0.8 10*3/uL 0.0 - 0.8 10*3/uL [employer] Work Phone: 1() 222 Monocytes/100 WBC (Bld) 4.9 % 2.0 - 10.0 % [employer] Phone: 1) 222 Platelet mean volume (Bld) [Entitic vol] 7.9 fL 7.4 - 10.4 fL [employer] Work Phone: ) 222 Platelets (Bld) [#/Vol] 287 10*3/uL 140 - 440 10*3/uL [employer] Work Phone: RBC (Bld) [#/Vol] 4.10 10*6/uL 3.80 - 5.20 10*6/uL [employer] Work Phone: WBC (Bld) [#/Vol] 15.6 10*3/uL High 3.6 - 10.7 10*3/uL [employer] Work Phone: Test Performed by [facility] [facility], [address] [place] [address] [facility] Work Phone: Glucose,Bedsideon 12-23-2020 Glucose [Mass/Vol] 192 mg/dL High [address] [facility] Comment on above: Result Comment: Test performed by glucose meter. Results may be 10%-15% lower than serum/plasma values. (CLIA ID [id number]) Performed By: #### B GLU #### [facility] [employer] [address] [address] [place] [address] Glucose [Mass/Vol] 244 mg/dL [facility] [address] Comment on above: Result Comment: Test performed by glucose meter. Results may be 10%-15% lower than serum/plasma values. (CLIA ID [id number]) Performed By: #### B GLU #### [facility] [employer] [facility] [place] [address] Glucose [Mass/Vol] 187 mg/dL [facility] [address] Comment on above: Result Comment: Test performed by glucose meter. Results may be 10%-15% lower than serum/plasma values. (CLIA ID [id number]) Performed By: #### M DIFF, HEMDF #### [facility] [employer] [address] [address] [place] [address] Glucose [Mass/Vol] 264 mg/dL [facility] [address] [facility] Comment on above: Result Comment: Test performed by glucose meter. Results may be 10%-15% lower than serum/plasma values. (CLIA ID [id number]) Performed By: #### B GLU #### [facility] [employer] [place] [address] Glucose [Mass/Vol] 246 mg/dL High 70-100 [facility] Comment on above: Result Comment: Test performed by glucose meter. Results may be 10%-15% lower than serum/plasma values. (CLIA ID [id number]) Performed By: #### M DIFF, HEMDF #### [address] [address] [address] [place], [place] Glucose [Mass/Vol] 325 mg/dL High 70-100 [facility] Comment on above: Result Comment: Test performed by glucose meter. Results may be 10%-15% lower than serum/plasma values. (CLIA ID [id number]) Performed By: #### B GLU #### [address] [address] [place], [place] Hemogram w/ Autodiffon 12-23 Abs Baso Cnt 0.1 10*3/uL Normal 0.0-0.2 [facility] Comment on above: Performed By: #### M DIFF, HEMDF #### [address] [address] [address] [place], [place] Abs Neutrophile Cnt 13.3 10*3/uL High 1.8-7.0 [facility] Comment on above: Performed By: #### M DIFF, HEMDF #### [address] [address] [place], [place] Basophils/100 WBC (Bld) 0.8 % Normal 0.0-2.0 [facility] Comment on above: Performed By: #### M DIFF, HEMDF #### [address] [address] [address] [place], [place] Eosinophils (Bld) [#/Vol] 0.0 10*3/uL Normal 0.0-0.5 [facility] Comment on above: Performed By: #### M DIFF, HEMDF #### [address] [address] [place], [place] Eosinophils/100 WBC (Bld) 0.0 % Low 1.0-6.0 [facility] Comment on above: Performed By: #### M DIFF, HEMDF #### [address] [address] [address] [place], [place] Erythrocyte distribution width (RBC) [Ratio] 13.4 % Normal 11.5-14.5 [facility] Comment on above: Performed By: #### M DIFF, HEMDF #### [address] [address] [address] [place], [place] Granulocytes/100 WBC (Bld) 85.4 % High 40.0-80.0 [facility] Comment on above: Performed By: #### M DIFF, HEMDF #### [address] [address] [address] [place], [place] Hematocrit (Bld) [Volume fraction] 37.0 % Normal 35.0-47.0 [facility] Comment on above: Performed By: #### M DIFF, HEMDF #### [address] [address] [address] [place], [place] Hemoglobin (Bld) [Mass/Vol] 12.6 g/dL Normal 11.7-16.0 [facility] Comment on above: Performed By: #### M DIFF, HEMDF #### [address] [address] [address] [place], [place] Lymphocytes (Bld) [#/Vol] 1.4 10*3/uL Normal 1.0-4.3 [facility] Comment on above: Performed By: #### M DIFF, HEMDF #### [address] [address] [place], [place] Lymphocytes/100 WBC (Bld) 8.9 % Low 20.0-40.0 [facility] Comment on above: Performed By: #### M DIFF, HEMDF #### [address] [address] [address] [place], [place] MCH (RBC) [Entitic mass] 30.8 pg Normal 26.0-34.0 [facility] Comment on above: Performed By: #### M DIFF, HEMDF #### [address] [address] [place], [place] MCHC 34.1 % Normal 32.0-36.0 [facility] Comment on above: Performed By: #### M DIFF, HEMDF #### [address] [address] [address] [place], [place] MCV (RBC) [Entitic vol] 90.3 fL Normal 79.0-98.0 [facility] Comment on above: Performed By: #### M DIFF, HEMDF #### [facility] [address] [place], [place] Monocytes (Bld) [#/Vol] 0.8 10*3/uL Normal 0.0-0.8 [facility] Comment on above: Performed By: #### M DIFF, HEMDF #### [address] [address] [address] [place], [place] Monocytes/100 WBC (Bld) 4.9 % Normal 2.0-10.0 [facility] Comment on above: Performed By: #### M DIFF, HEMDF #### [address] [address] [place], [place] Platelet mean volume (Bld) [Entitic vol] 7.9 fL Normal 7.4-10.4 [facility] Comment on above: Performed By: #### M DIFF, HEMDF #### [address] [address] [place], [place] Platelets (Bld) [#/Vol] 287 10*3/uL Normal 140-440 [facility] Comment on above: Performed By: #### M DIFF, HEMDF #### [address] [address] [place], [place] RBC (Bld) [#/Vol] 4.10 10*6/uL Normal 3.80-5.20 [facility] Comment on above: Performed By: #### M DIFF, HEMDF #### [address] [address] [place], [place] WBC (Bld) [#/Vol] 15.6 10*3/uL High 3.6-10.7 [facility] Comment on above: Performed By: #### M DIFF, HEMDF #### [address] [address] [address] [place], [place] POCT Glucoseon 12-23-2020 Glucose [Mass/Vol] 192 mg/dL High 70 - 100 mg/dL [facility] Work Phone: [phone] Comment on above: Test performed by gl ucose meter. Results may be 10%-15% lower than serum/plasma values. (CLIA ID [id number]) Interpretation and review of laboratory results Abnormal [facility] Work Phone: [phone] Test Performed by [employer], [facility] [place] [address] [facility] Work Phone: [phone] Glucose [Mass/Vol] 244 mg/dL High 70 - 100 mg/dL [facility] Work Phone: [phone] Comment on above: Test performed by gl ucose meter. Results may be 10%-15% lower than serum/plasma values. (CLIA ID [id number]) Interpretation and review of laboratory results Abnormal [facility] Work Phone: [phone] Test Performed by [employer], [facility] [place] [address] [facility] Work Phone: [phone] Glucose [Mass/Vol] 187 mg/dL High 70 - 100 mg/dL [facility] Work Phone: [phone] Comment on above: Test performed by gl ucose meter. Results may be 10%-15% lower than serum/plasma values. (CLIA ID [id number]) Interpretation and review of laboratory results Abnormal [facility] Work Phone: [phone] Test Performed by [employer], [facility] [place] [address] [facility] Work Phone: [phone] Glucose [Mass/Vol] 264 mg/dL High 70 - 100 mg/dL [facility] Work Phone: [phone] Comment on above: Test performed by gl ucose meter. Results may be 10%-15% lower than serum/plasma values. (CLIA ID [id number]) Interpretation and review of laboratory results Abnormal [facility] Work Phone: [phone] Test Performed by [employer], [facility] [place] [address] [facility] Work Phone: [phone] Glucose [Mass/Vol] 246 mg/dL High 70 - 100 mg/dL [facility] Work Phone: [phone] Comment on above: Test performed by gl ucose meter. Results may be 10%-15% lower than serum/plasma values. (CLIA ID [id number]) Interpretation and review of laboratory results Abnormal [employer] Work Phone: 1 Test Performed by [employer], [facility] [place] [place] [address] [facility] Work Phone: Glucose [Mass/Vol] 325 mg/dL High 70 - 100 mg/dL [facility] Work Phone: Comment on above: Test performed by [employer] ucose meter. Results may be 10%-15% lower than serum/plasma values. (CLIA ID [id number]) Interpretation and review of laboratory results Abnormal [employer] Work Phone: 1 Test Performed by [employer], [facility] [place] [address] [facility] Work Phone: 1 CBC Auto Differentialon 11-27 Erythrocyte distribution width (RBC) [Ratio] 13.7 % 11.5 - 14.5 % [facility] Work Phone: Hematocrit (Bld) [Volume fraction] 39.2 % 35.0 - 47.0 % [facility] Work Phone: Hemoglobin (Bld) [Mass/Vol] 13.1 g/dL 11.7 - 16.0 g/dL [facility] Work Phone: 1 Interpretation and review of laboratory results Abnormal [employer] Work Phone: MCH (RBC) [Entitic mass] 30.2 [...] [#/Vol] 315 10*3/uL 140 - 440 10*3/uL [employer] Work Phone: RBC (Bld) [#/Vol] 4.32 10*6/uL 3.80 - 5.20 10*6/uL [employer] Work Phone: WBC (Bld) [#/Vol] 19.6 10*3/uL High 3.6 - 10.7 10*3/uL [employer] Work Phone: Test Performed by [facility], [address] [place] [address] [facility] Work Phone: Glucose,Bedsideon 12-22-2020 Glucose [Mass/Vol] 239 mg/dL High 70-100 [facility] Comment on above: Result Comment: Test performed by glucose meter. Results may be 10%-15% lower than serum/plasma values. (CLIA ID [id number]) Performed By: #### B GLU #### [facility] [employer] [place] [address] Glucose [Mass/Vol] 276 mg/dL High [address] Comment on above: Result Comment: Test performed by glucose meter. Results may be 10%-15% lower than serum/plasma values. (CLIA ID [id number]) Performed By: #### B GLU #### [facility] [employer] [place] [address] Glucose [Mass/Vol] 361 mg/dL [facility] [address] Comment on above: Result Comment: Test performed by glucose meter. Results may be 10%-15% lower than serum/plasma values. (CLIA ID [id number]) Performed By: #### B GLU #### [facility] [employer] [place] [address] Glucose [Mass/Vol] 323 mg/dL [facility] [address] Comment on above: Result Comment: Test performed by glucose meter. Results may be 10%-15% lower than serum/plasma values. (CLIA ID [id number]) Performed By: #### B GLU #### [facility] [employer] [facility] [place] Glucose [Mass/Vol] 351 mg/dL High 70-100 [facility] Comment on above: Result Comment: Test performed by glucose meter. Results may be 10%-15% lower than serum/plasma values. (CLIA ID [id number]) Performed By: #### B GLU #### [facility] [address] [place] [address] Glucose [Mass/Vol] 293 mg/dL High 70-100 [facility] Comment on above: Result Comment: Test performed by glucose meter. Results may be 10%-15% lower than serum/plasma values. (CLIA ID [id number]) Performed By: #### B GLU #### [address] [place] [address] Hemoglobin A1Con 12-22-2020 Glucose [Mass/Vol] 203 mg/dL Normal [facility] Comment on above: Performed By: #### B GLU #### [address] [address] [place], [place] HbA1c (Bld) [Mass fraction] 8.7 % Abnormal [facility] Comment on above: Result Comment: Norm al less than 5.7% Prediabetes 5.7% to 6.4% Diabetes 6.5% or higher --HgbA1C levels may not be accurate in patients who have renal disease, received recent blood transfusions, are anemic, or who have dyshemoglobinemia. Performed By: #### B GLU #### [facility] [address] [place] [address] Hemoglobin A1con 12-22-2020 eAG 203 mg/dL [facility] Work Phone: HbA1c (Bld) [Mass fraction] 8.7 % Abnormal [facility] Work Phone: Comment on above: Normal less than 5.7 % Prediabetes 5.7% to 6.4% Diabetes 6.5% or higher --HgbA1C levels may not be accurate in patients who have renal disease, received recent blood transfusions, are anemic, or who have dyshemoglobinemia. Interpretation and review of laboratory results Abnormal [facility] Work Phone: Test Performed by [facility], [address] [place] [address] [facility] Work Phone: Hemogram w/ Autodiffon 12-22 Erythrocyte distribution width (RBC) [Ratio] 13.7 % Normal 11.5-14.5 [facility] Comment on above: Performed By: #### M DIFF, HEMDF #### [address] [address] [address] [place], [place] Hematocrit (Bld) [Volume fraction] 39.2 % Normal 35.0-47.0 [facility] Comment on above: Performed By: #### M DIFF, HEMDF #### [address] [address] [address] [place], [place] Hemoglobin (Bld) [Mass/Vol] 13.1 g/dL Normal 11.7-16.0 [facility] Comment on above: Performed By: #### M DIFF, HEMDF #### [address] [address] [address] [place], [place] MCH (RBC) [Entitic mass] 30.2 pg Normal 26.0-34.0 [facility] Comment on above: Performed By: #### M DIFF, HEMDF #### [address] [address] [place] MCHC 33.3 % Normal 32.0-36.0 [facility] Comment on above: Performed By: #### M DIFF, HEMDF #### [address] [address] [address] [place] MCV (RBC) [Entitic vol] 90.7 fL Normal 79.0-98.0 [facility] Comment on above: Performed By: #### M DIFF, HEMDF #### [address] [address] [address] [place], [place] Platelet mean volume (Bld) [Entitic vol] 7.8 fL Normal 7.4-10.4 [facility] Comment on above: Performed By: #### M DIFF, HEMDF #### [address] [address] [place], [place] Platelets (Bld) [#/Vol] 315 10*3/uL Normal 140-440 [facility] Comment on above: Performed By: #### M DIFF, HEMDF #### [address] [address] [address] [place], [place] RBC (Bld) [#/Vol] 4.32 10*6/uL Normal 3.80-5.20 [facility] Comment on above: Performed By: #### M DIFF, HEMDF #### [address] [place], [place] WBC (Bld) [#/Vol] 19.6 10*3/uL High 3.6-10.7 [facility] Comment on above: Performed By: #### M DIFF, HEMDF #### [address] [address] [place], [place] Manual Diffon 12-22-2020 Abs Lymph Cnt 2.7 10*3/uL Normal 1.1-4.5 [facility] Comment on above: Performed By: #### M DIFF, HEMDF #### [address] [address] [address] [place], [place] Abs Monocyte Cnt 1.6 10*3/uL High 0.2-1.1 [facility] Comment on above: Performed By: #### M DIFF, HEMDF #### [address] [place], [place] Abs Neutrophile Cnt 15.3 10*3/uL High 2.2-8.2 [facility] Comment on above: Performed By: #### M DIFF, HEMDF #### [address] [place], [place] Lymphocytes 14 % Low 20-40 [facility] Comment on above: Performed By: #### M DIFF, HEMDF #### [address] [address] [place], [place] Monocytes 8 % Normal 2-10 [facility] Comment on above: Performed By: #### M DIFF, HEMDF #### [address] [address] [address] [place], [place] RBC Morphology Normal Normal [facility] Comment on above: Performed By: #### M DIFF, HEMDF #### [facility] [address] [place], [place] Seg Neutrophils 78 % Normal 40-80 [facility] Comment on above: Performed By: #### M DIFF, HEMDF #### [facility] [address] [place], [place] Abs Baso Cnt 0.0 10*3/uL Normal 0.0-0.2 [facility] Comment on above: Performed By: #### M DIFF, HEMDF #### [address] [address] [address] [place], [place] Abs Eosin Cnt 0.0 10*3/uL Normal 0.0-0.5 [facility] Comment on above: Performed By: #### M DIFF, HEMDF #### [address] [address] [place], [place] Bands 0 % Normal 0-3 [facility] Comment on above: Performed By: #### M DIFF, HEMDF #### [address] [address] [address] [place], [place] Basophils 0 % Normal 0-2 [facility] Comment on above: Performed By: #### M DIFF, HEMDF #### [address] [address] [place], [place] Cells counted 100 Normal [facility] Comment on above: Performed By: #### M DIFF, HEMDF #### [address] [address] [place] Eosinophils 0 % Low 1-6 [facility] Comment on above: Performed By: #### M DIFF, HEMDF #### [address] [address] [place], [place] Manual Differentialon 2020 Absolute Baso # 0.0 10*3/uL 0.0 - 0.2 10*3/uL [facility] Work Phone: Absolute Eos # 0.0 10*3/uL 0.0 - 0.5 10*3/uL [facility] Work Phone: Absolute Lymph # 2.7 10*3/uL 1.1 - 4.5 10*3/uL [facility] Work Phone: Absolute [place] # 1.6 10*3/uL High 0.2 - 1.1 [...] Work Phone: [phone] Test Performed by [employer], [place] [address] [facility] Work Phone: [phone] POCT Glucoseon 12-22-2020 Glucose [Mass/Vol] 239 mg/dL High 70 - 100 mg/dL [facility] Work Phone: [phone] Comment on above: Test performed by gl ucose meter. Results may be 10%-15% lower than serum/plasma values. (CLIA ID [id number]) Interpretation and review of laboratory results Abnormal [facility] Work Phone: [phone] Test Performed by [employer], [place] [address] [facility] Work Phone: [phone] Glucose [Mass/Vol] 276 mg/dL High 70 - 100 mg/dL [facility] Work Phone: [phone] Comment on above: Test performed by gl ucose meter. Results may be 10%-15% lower than serum/plasma values. (CLIA ID [id number]) Interpretation and review of laboratory results Abnormal [facility] Work Phone: [phone] Test Performed by [employer], [place] [address] [facility] Work Phone: [phone] Glucose [Mass/Vol] 361 mg/dL High 70 - 100 mg/dL [facility] Work Phone: [phone] Comment on above: Test performed by gl ucose meter. Results may be 10%-15% lower than serum/plasma values. (CLIA ID [id number]) Interpretation and review of laboratory results Abnormal [facility] Work Phone: [phone] Test Performed by [employer], [place] [address] [facility] Work Phone: [phone] Glucose [Mass/Vol] 323 mg/dL High 70 - 100 mg/dL [facility] Work Phone: [phone] Comment on above: Test performed by gl ucose meter. Results may be 10%-15% lower than serum/plasma values. (CLIA ID [id number]) Interpretation and review of laboratory results Abnormal [facility] Work Phone: [phone] Test Performed by [employer], [facility] [place] [place] [address] [facility] Work Phone: [phone] Glucose [Mass/Vol] 351 mg/dL High 70 - 100 mg/dL [facility] Work Phone: [phone] Comment on above: Test performed by gl ucose meter. Results may be 10%-15% lower than serum/plasma values. (CLIA ID [id number]) Interpretation and review of laboratory results Abnormal [facility] Work Phone: [phone] Test Performed by [employer], [place] [address] [facility] Work Phone: [phone] Glucose [Mass/Vol] 293 mg/dL High 70 - 100 mg/dL [facility] Work Phone: [phone] Comment on above: Test performed by gl ucose meter. Results may be 10%-15% lower than serum/plasma values. (CLIA ID [id number]) Interpretation and review of laboratory results Abnormal [facility] Work Phone: Test Performed by [facility], [address] [place] [address] [facility] Work Phone: APTTon 12-21-2020 aPTT Coag (Bld) [Time] 25.8 s Normal 20.0-30.5 [facility] Comment on above: Result Comment: NOTE : The therapeutic time for Heparin anticoagulation, based on Xa activity inhibition, is an APTT of 46-80 seconds. Performed By: #### B GLU #### [facility] [address] [place], [place] aPTT Coag (Bld) [Time] 25.8 s 20.0 - 30.5 s [facility] Work Phone: Comment on above: NOTE: The therapeuti c time for Heparin anticoagulation, based on Xa activity inhibition, is an APTT of 46-80 seconds. Basic Metabolic Panelon 11-27 Calcium [Mass/Vol] 9.7 mg/dL Normal 8.4-10.4 [facility] Comment on above: Performed By: #### B GLU #### [address] [place], [place] Glucose [Mass/Vol] 311 mg/dL High 70-100 [facility] Comment on above: Performed By: #### B GLU #### [address] [place], [place] Anion gap [Moles/Vol] 7 mmol/L Normal 3-13 [facility] Comment on above: Performed By: #### B GLU #### [address] [place], [place] CO2 [Moles/Vol] 26 mmol/L Normal 22-30 [facility] Comment on above: Performed By: #### B GLU #### [facility] [address] [place], [place] Creatinine [Mass/Vol] 0.42 mg/dL Low 0.52-1.25 [facility] Comment on above: Performed By: #### B GLU #### [facility] [address], [place] eGFR OTHER > 90.0 Normal >60 [facility] Comment on above: Result Comment: [...] secretion. Performed By: #### B GLU #### [facility] [address] [place], [place] GFR/1.73 sq M.predicted among blacks MDRD (S/P/Bld) [Vol rate/Area] mL/min/{1.73_m2} Normal >60 [facility] Comment on above: Performed By: #### B GLU #### [place] [address] [place], [place] Urea nitrogen [Mass/Vol] 15 mg/dL Normal 7-20 [facility] Comment on above: Performed By: #### B GLU #### [place] [address] [address] [place], [place] Chloride [Moles/Vol] 99 mmol/L Normal 98-107 [facility] Comment on above: Performed By: #### B GLU #### [address] [address] [place], [place] Potassium [Moles/Vol] 3.9 mmol/L Normal 3.5-5.1 [facility] Comment on above: Performed By: #### B GLU #### [place] [address] [place], [place] Sodium [Moles/Vol] 132 mmol/L Low 135-145 [facility] Comment on above: Performed By: #### B GLU #### [facility] [address] [address] Anion gap [Moles/Vol] 7 mmol/L 3 - 13 mmol/L [facility] Work Phone: Calcium [Mass/Vol] 9.7 mg/dL 8.4 - 10. 4 mg/dL [facility] Work Phone: [phone] Chloride [Moles/Vol] 99 mmol/L 98 - 10 7 mmol/L [facility] Work Phone: [phone] CO2 [Moles/Vol] 26 mmol/L 22 - 30 mmol/L [facility] Work Phone: [phone] Creatinine [Mass/Vol] 0.42 mg/dL Low 0.52 - 1.25 mg/dL [facility] Work Phone: [phone] EGFR IF NonAfrican [place]ayan >90.0 >60 mL/min [facility] Work Phone: [phone] Comment on above: KDIGO guidelines pro [...] 311 mg/dL High 70 - 100 mg/dL [facility] Work Phone: [phone] Interpretation and review of laboratory results Abnormal [facility] Work Phone: [phone] Potassium [Moles/Vol] 3.9 mmol/L 3.5 - 5.1 mmol/L [facility] Work Phone: [phone] Sodium [Moles/Vol] 132 mmol/L Low 135 - 145 mmol/L [facility] Work Phone: [phone] Urea nitrogen [Mass/Vol] 15 mg/dL 7 - 20 mg/dL [facility] Work Phone: [phone] Test Performed by [address] [address] [facility] Work Phone: [phone] CBCon 12-21-2020 Erythrocyte distribution width (RBC) [Ratio] 13.3 % 11.5 - 14.5 % [facility] Work Phone: [phone] Hematocrit (Bld) [Volume fraction] 45.2 % 35.0 - 47.0 % [employer] Work Phone: Hemoglobin (Bld) [Mass/Vol] 15.1 g/dL 11.7 - 16.0 g/dL [facility] Work Phone: [phone] MCH (RBC) [Entitic mass] 30.3 pg 26.0 - 34.0 pg [facility] Work Phone: ) [phone] MCHC (RBC) [Mass/Vol] 33.5 % 32.0 - 36.0 % [facility] Work Phone: 222 MCV (RBC) [Entitic vol] 90.7 fL 79.0 - 98.0 fL [employer] Work Phone: [phone] Platelet mean volume (Bld) [...] Radiology ACCESSION EXAM DATE/TIME PROCEDURE ORDERING PROVIDER [id number] 12/21/2020 06:06 EDT CR Chest 1 View Frontal MD ROCK ZACHARY CPT code 87446 Reason For Exam (CR Chest 1 View [...] Transcribed Date and Time: 12/21/2020 8:00 Normal [facility] CR Spine Lumbosacral 2 or 3 Viewson 12-21-2020 CR Spine Lumbosacral 2 or 3 Views Patient Name: DEONTE BLANCO Diagnostic Radiology ACCESSION EXAM DATE/TIME PROCEDURE ORDERING PROVIDER [id number] 12/21/2020 06:06 EDT CR Spine Lumbosacral 2 MD ROCK ZACHARY or 3 Views CPT code 69286 Reason For Exam (CR Spine Lumbosacral 2 or 3 Views) pre-surgery films Report Examination: Lumbar spine 3 views Indication: pre-surgery films Findings: The vertebral bodies are in gross anatomic alignment. No acute fracture is demonstrated. Lckw-gb-kyyujscf levocurvature is noted. There are at least moderate degenerative facet changes of the lower lumbar spine. There is at least moderate degenerative disc disease at T12/L1 and L1/L2. Skyv-zl-eazkrzey calcification of the abdominal aorta is noted. Multiple rounded surgical coils overlie the mid abdomen most suggestive of prior herniorrhaphy. Impression: No acute osseous abnormality. Report Dictated on Final Dictated: 12/21/2020 8:31 am Dictating Physician: MD FLEMING KRIKOR Signed Date and Time: 12/21/2020 8:33 am Signed by: MD FLEMING KRIKOR Transcribed Date and Time: 12/21/2020 8:31 Normal [facility] EKG 12 Leadon 12-21-2020 Karthik, [facility] Incoming Cardiology Results From [facility] - 12/21/2020 9:40 AM EDT [facility] Test Date: 2020-12-21 Pat Name: Deonte Blanco Department: [facility] Room: [facility] Gender: F Zipper Cutter: CHRISTA : 1955 Requested By: SHILPI ROCK Order Number: [id number] Reading MD: Suresh Vides Measurements Intervals [place] Rate: 67 P: -40 TN: 248 QRS: 3 QRSD: 93 T: -15 QT: 428 QTc: 452 Interpretive Statements Sinus rhythm FIRST DEGREE AV BLOCK Probable left ventricular hypertrophy Nonspecific T abnormalities, anterior leads Poor R wave progression Electronically Signed On 12-21-2020 9:39:37 EDT by Suresh GODWIN Work Phone: [facility] Test Date: 2020-12-21 Pat Name: Deonte Blanco Department: 1A6 Room: [facility] Gender: F Zipper Cutter: CHRISTA : 1955 Requested By: SHILPI ROCK Order Number: [id number] Reading MD: Suresh Vides Measurements Intervals [place] Rate: 67 P: -40 TN: 248 QRS: 3 QRSD: 93 T: -15 QT: 428 QTc: 452 Interpretive Statements Sinus rhythm FIRST DEGREE AV BLOCK Probable left ventricular hypertrophy Nonspecific T abnormalities, anterior leads Poor R wave progression Electronically Signed On 12-21-2020 9:39:37 EDT by Suresh GODWIN Work Phone: Glucose,Bedsideon 12-21-2020 Glucose [Mass/Vol] 298 mg/dL High 70-100 [facility] Comment on above: Result Comment: Test performed by glucose meter. Results may be 10%-15% lower than serum/plasma values. (CLIA ID [id number]) Performed By: #### M DIFF, HEMDF #### [facility] [address] [place] [address] Glucose [Mass/Vol] 223 mg/dL High 70-100 [facility] Comment on above: Result Comment: Test performed by glucose meter. Results may be 10%-15% lower than serum/plasma values. (CLIA ID [id number]) Performed By: #### B GLU #### [facility] [address] [place] [address] Glucose [Mass/Vol] 237 mg/dL High 70-100 [facility] Comment on above: Result Comment: Test performed by glucose meter. Results may be 10%-15% lower than serum/plasma values. (CLIA ID [id number]) Performed By: #### B GLU #### [facility] [address] [place] [address] Glucose [Mass/Vol] 299 mg/dL High 70-100 [facility] Work Phone: Comment on above: Test performed by gl ucose meter. Results may be 10%-15% lower than serum/plasma values. (CLIA ID [id number]) Result Comment: Test performed by glucose meter. Results may be 10%-15% lower than serum/plasma values. (CLIA ID [id number]) Performed By: #### B GLU #### [facility] [address] [place] [address] Hemogramon 12-21-2020 Erythrocyte distribution width (RBC) [Ratio] 13.3 % Normal 11.5-14.5 [facility] Comment on above: Performed By: #### B GLU #### [facility] [address] [place] [address] Hematocrit (Bld) [Volume fraction] 45.2 % Normal 35.0-47.0 [facility] Comment on above: Performed By: #### B GLU #### [facility] [address] [place], [place] Hemoglobin (Bld) [Mass/Vol] 15.1 g/dL Normal 11.7-16.0 [facility] Comment on above: Performed By: #### B GLU #### [place] [address] [place], [place] MCH (RBC) [Entitic mass] 30.3 pg Normal 26.0-34.0 [facility] Comment on above: Performed By: #### B GLU #### [place] [address] [place], [place] MCHC 33.5 % Normal 32.0-36.0 [facility] Comment on above: Performed By: #### B GLU #### [place] [address] [place], [place] MCV (RBC) [Entitic vol] 90.7 fL Normal 79.0-98.0 [facility] Comment on above: Performed By: #### B GLU #### [place] [address] [place], [place] Platelet mean volume (Bld) [Entitic vol] 7.7 fL Normal 7.4-10.4 [facility] Comment on above: Performed By: #### B GLU #### [place] [address] [place], [place] Platelets (Bld) [#/Vol] 332 10*3/uL Normal 140-440 [facility] Comment on above: Performed By: #### B GLU #### [place] [address] [place], [place] RBC (Bld) [#/Vol] 4.99 10*6/uL Normal 3.80-5.20 [facility] Comment on above: Performed By: #### B GLU #### [address] [place], [place] WBC (Bld) [#/Vol] 15.7 10*3/uL High 3.6-10.7 [facility] Comment on above: Performed By: #### B GLU #### [place] [address] [place], [place] Otheron 12-21-2020 Test Performed by [employer], [place] [address] [facility] Work Phone: [phone] Interpretation and review of laboratory results Abnormal [facility] Work Phone: [phone] Test Performed by [employer], [place] [address] [facility] Work Phone: [phone] POCT Glucoseon 12-21-2020 Glucose [Mass/Vol] 298 mg/dL High 70 - 100 mg/dL [facility] Work Phone: [phone] Comment on above: Test performed by gl ucose meter. Results may be 10%-15% lower than serum/plasma values. (CLIA ID [id number]) Interpretation and review of laboratory results Abnormal [facility] Work Phone: [phone] Test Performed by [employer], [place] [address] [facility] Work Phone: [phone] Glucose [Mass/Vol] 223 mg/dL High 70 - 100 mg/dL [facility] Work Phone: [phone] Comment on above: Test performed by gl ucose meter. Results may be 10%-15% lower than serum/plasma values. (CLIA ID [id number]) Interpretation and review of laboratory results Abnormal [facility] Work Phone: [phone] Test Performed by [employer], [place] [address] [facility] Work Phone: [phone] Glucose [Mass/Vol] 237 mg/dL High 70 - 100 mg/dL [facility] Work Phone: [phone] Comment on above: Test performed by gl ucose meter. Results may be 10%-15% lower than serum/plasma values. (CLIA ID [id number]) Interpretation and review of laboratory results Abnormal [facility] Work Phone: [phone] Test Performed by [employer], [place] [address] [facility] Work Phone: [phone] Prothrombin Timeon 1 INR 1.0 Normal 0.9-1.1 [email or web address] Comment on above: Result Comment: Dain mmended [...] Infarction Performed By: #### B GLU #### [employer] [address] [place] [address] PT Coag (PPP) [Time] 10.6 s Normal 9.0-12.0 [facility] [employer] Comment on above: Result Comment: . Performed By: #### B GLU #### [facility] [employer] [place] [address] [place] [address] Protime-INRon 12-21-2020 INR Coag (PPP) [Relative time] 1.0 {INR} [employer] Work Phone: Comment on above: Recommended Anticoag [...] 10.6 s 9.0 - 1 2.0 s [employer] Work Phone: Comment on above: . TS GELon 12-21-2020 TS GEL ABO Group: A Rh, Gel: POS Antibody Screen Gel: NEG Normal [facility] [employer] Comment on above: Performed By: #### B GLU #### [email or web address] [address] [place] [address] TYPE AND SCREENon 12-21-2020 Sodium [Moles/Vol] Positive [employer] Work Phone: Sodium [Moles/Vol] A [employer] Work Phone: Sodium [Moles/Vol] Negative [facility] Work Phone: Test Performed by [facility], [address] [place] [address] [facility] Work Phone: XR CHEST 1 VWon 12-21-2020 Patient Name: DEONTE BLANCO Diagnostic Radiology ACCESSION EXAM DATE/TIME PROCEDURE ORDERING PROVIDER [id number] 12/21/2020 06:06 EDT CR Chest 1 View Frontal MD ROCK ZACHARY CPT code 24295 Reason For Exam (CR Chest 1 View [...] KRIKOR Transcribed Date and Time: 12/21/2020 8:00 [facility] Work Phone: Karthik, [facility] Incoming Radiology Results From On License Of [facility] - 12/21/2020 8:27 AM EDT Patient Name: DEONTE BLANCO Diagnostic Radiology ACCESSION EXAM DATE/TIME PROCEDURE ORDERING PROVIDER [id number] 12/21/2020 06:06 EDT CR Chest 1 View Frontal MD ROCK ZACHARY CPT code 12131 Reason For Exam (CR Chest 1 View [...] 12-21-2020 [facility], [facility] Incoming Radiology Results From On License Of [facility] - 12/21/2020 8:34 AM EDT Patient Name: DEONTE BLANCO Diagnostic Radiology ACCESSION EXAM DATE/TIME PROCEDURE ORDERING PROVIDER [id number] 12/21/2020 06:06 EDT CR Spine Lumbosacral 2 MD SHWETA, SHILPI or 3 Views CPT code 73657 Reason For Exam (CR Spine Lumbosacral 2 or 3 Views) pre-surgery films Report Examination: Lumbar spine 3 views Indication: pre-surgery films Findings: The vertebral bodies are in gross anatomic alignment. No acute fracture is demonstrated. Wugz-uy-jvxjwmur levocurvature is noted. There are at least moderate degenerative facet changes of the lower lumbar spine. There is at least moderate degenerative disc disease at T12/L1 and L1/L2. Pxws-pf-bbmuqccn calcification of the abdominal aorta is noted. [...] Radiology ACCESSION EXAM DATE/TIME PROCEDURE ORDERING PROVIDER [id number] 12/21/2020 06:06 EDT CR Spine Lumbosacral 2 MD ROCK ZACHARY or 3 Views CPT code 73482 Reason For Exam (CR Spine Lumbosacral 2 or 3 Views) pre-surgery films Report Examination: Lumbar spine 3 views Indication: pre-surgery films Findings: The vertebral bodies are in gross anatomic alignment. No acute fracture is demonstrated. Cnzi-ar-jhuydgqw levocurvature is noted. There are at least moderate degenerative facet changes of the lower lumbar spine. There is at least moderate degenerative disc disease at T12/L1 and L1/L2. Uwfe-cz-ndvdgscl calcification of the abdominal aorta is noted. [...] cm Dr. Preet Farrar DO Work Phone: [facility] 06-21-2025 13:02-0400 Body mass index (BMI) [Ratio] 35.9 kg/m2 Dr. Preet Farrar DO Work Phone: [facility] 06-21-2025 13:02-0400 Body weight 83.[address] Preet Farrar DO Work Phone: [facility] 06-21-2025 13:02-0400 Diastolic blood pressure 74 mm[Hg] Dr. Preet Farrar DO Work Phone: [facility] 06-21-2025 13:02-0400 Systolic blood pressure 149 mm[Hg] Dr. Preet Farrar DO Work Phone: [facility] 05-31-2025 11:16-0400 Body mass index (BMI) [Ratio] 35.65 kg/m2 Preet Farrar DO Work Phone: [facility] 05-31-2025 11:16-0400 Body temperature 97.59 [degF] Preet Farrar DO Work Phone: [facility] 05-31-2025 11:16-0400 Body weight 83.46 kg Preet Farrar DO Work Phone: [facility] 05-31-2025 11:16-0400 Diastolic blood pressure 80 mm[Hg] Preet Farrar DO Work Phone: [facility] 05-31-2025 11:16-0400 Heart rate 84 /min Preet Farrar DO Work Phone: [facility] 05-31-2025 11:16-0400 SaO2% (BldA) [Mass fraction] 98 % Preet Farrar DO Work Phone: [facility] 05-31-2025 11:16-0400 Systolic blood pressure 136 mm[Hg] Preet Farrar DO Work Phone: [facility] 05-25-2025 23:40-0400 Body temperature 98.1 [degF] Dr. Preet Farrar DO Work Phone: [facility] 05-25-2025 23:40-0400 Diastolic blood pressure 90 mm[Hg] Dr. Preet Farrar DO Work Phone: [facility] 05-25-2025 23:40-0400 Heart rate 102 /min Dr. Preet Farrar DO Work Phone: [facility] 05-25-2025 23:40-0400 Respiratory rate 18 /min Dr. Preet Farrar DO Work Phone: [facility] 05-25-2025 23:40-0400 SaO2% (BldA) [Mass fraction] 98 % Dr. Preet Farrar DO Work Phone: [facility] 05-25-2025 23:40-0400 Systolic blood pressure 148 mm[Hg] Dr. Preet Farrar DO Work Phone: [facility] 05-25-2025 21:39-0400 Body height 152.[address] Preet Farrar DO Work Phone: [facility] 05-25-2025 21:39-0400 Body mass index (BMI) [Ratio] 43.3 kg/m2 Dr. Preet Farrar DO Work Phone: [facility] 05-25-2025 21:39-0400 Body weight 100.[address] Preet Farrar DO Work Phone: [facility] 04-18-2025 08:27-0400 Body mass index (BMI) [Ratio] 35.65 kg/m2 Liliana Bennett APRN.DRAW FIRE OPERATOR Work Phone: [facility] 04-18-2025 08:27-0400 Body weight 83.46 kg Liliana Bennett APRN.DRAW FIRE OPERATOR Work Phone: [facility] 04-18-2025 08:27-0400 Diastolic blood pressure 70 mm[Hg] Liliana Bennett APRN.DRAW FIRE OPERATOR Work Phone: [facility] 04-18-2025 08:27-0400 Heart rate 76 /min Liliana Bennett APRN.DRAW FIRE OPERATOR Work Phone: [facility] 04-18-2025 08:27-0400 SaO2% (BldA) [Mass fraction] 96 % Liliana Bennett APRN.DRAW FIRE OPERATOR Work Phone: [facility] 04-18-2025 08:27-0400 Systolic blood pressure 120 mm[Hg] Liliana Bennett APRN.DRAW FIRE OPERATOR Work Phone: [facility] 04-15-2025 19:29-0400 Body temperature 98.6 [degF] Dr. Preet Farrar DO Work Phone: [facility] 04-15-2025 19:29-0400 Diastolic blood pressure 79 mm[Hg] Dr. Prete Farrar DO Work Phone: [facility] 04-15-2025 19:29-0400 Heart rate 91 /min Dr. Preet Farrar DO Work Phone: [facility] 04-15-2025 19:29-0400 Respiratory rate 16 /min Dr. Preet Farrar DO Work Phone: 7(348)692-232078 [place] [address] 04-15-2025 19:29-0400 SaO2% (BldA) [Mass fraction] 97 % Dr. Preet Farrar DO Work Phone: 5(821)571-333874 [place] [address] 04-15-2025 19:29-0400 Systolic blood pressure 103 mm[Hg] Dr. Preet Farrar DO Work Phone: 5(680)124-410778 [place] [address] 04-15-2025 13:11-0400 Body height 152.[address] Preet Farrar DO Work Phone: 7(599)271-415178 [place] [address] 04-15-2025 13:11-0400 Body mass index (BMI) [Ratio] 35.2 kg/m2 Dr. Preet Farrar DO Work Phone: 1(277)479-138774 [place] [address] 04-15-2025 13:11-0400 Body weight 81.[address] Preet Farrar DO Work Phone: 7(982)345-534274 [place] [address] 03-22-2025 13:46-0400 Body mass index (BMI) [Ratio] 36 kg/m2 Liliana Bennett APRN.DRAW FIRE OPERATOR Work Phone: [facility] 03-22-2025 13:46-0400 Body weight 84.28 kg Liliana Bennett RECREATION THERAPY AIDES TEACHER.DRAW FIRE OPERATOR Work Phone: [facility] 03-22-2025 13:46-0400 Diastolic blood pressure 70 mm[Hg] Liliana Bennett APRN.DRAW FIRE OPERATOR Work Phone: [facility] 03-22-2025 13:46-0400 Heart rate 78 /min Liliana Bennett APRN.DRAW FIRE OPERATOR Work Phone: [facility] 03-22-2025 13:46-0400 SaO2% (BldA) [Mass fraction] 98 % Liliana Nuñezo RECREATION THERAPY AIDES TEACHER.DRAW FIRE OPERATOR Work Phone: [facility] 03-22-2025 13:46-0400 Systolic blood pressure 140 mm[Hg] Liliana Nuñezo RECREATION THERAPY AIDES TEACHER.DRAW FIRE OPERATOR Work Phone: [facility] 02-09-2025 10:03-0400 Body mass index (BMI) [Ratio] 36.39 kg/m2 Bean Isaac MD Work Phone: [facility] 02-09-2025 10:03-0400 Body weight 85.19 kg Bean Isaac MD Work Phone: [facility] 02-09-2025 10:03-0400 Diastolic blood pressure 78 mm[Hg] Bean Isaac MD Work Phone: [facility] 02-09-2025 10:03-0400 Heart rate 84 /min Bean Isaac MD Work Phone: [facility] 02-09-2025 10:03-0400 SaO2% (BldA) [Mass fraction] 95 % Bean Isaac MD Work Phone: [facility] 02-09-2025 10:03-0400 Systolic blood pressure 122 mm[Hg] Bean Isaac MD Work Phone: [facility] 02-06-2025 10:53-0400 Body height 152.[address] Preet Farrar DO Work Phone: [facility] 02-06-2025 10:53-0400 Body mass index (BMI) [Ratio] 36.6 kg/m2 Dr. Preet Farrar DO Work Phone: [facility] 02-06-2025 10:53-0400 Body weight 84.[address] Preet Farrar DO Work Phone: [facility] 02-06-2025 10:53-0400 Diastolic blood pressure 60 mm[Hg] Dr. Preet Farrar DO Work Phone: 2(745)091-227478 [place] [address] 02-06-2025 10:53-0400 Systolic blood pressure 136 mm[Hg] Dr. Preet Farrar DO Work Phone: 5(003)832-899074 [place] [address] 01-26-2025 08:18-0400 Body mass index (BMI) [Ratio] 36.1 kg/m2 Dr. Preet Farrar DO Work Phone: 1(699)260-968374 [place] [address] 01-26-2025 08:18-0400 Body weight 83.[address] Preet Farrar DO Work Phone: 3(453)281-440274 [place] [address] 01-26-2025 08:18-0400 Diastolic blood pressure 82 mm[Hg] Dr. Preet Farrar DO Work Phone: 4(185)575-573374 [place] [address] 01-26-2025 08:18-0400 Heart rate 82 /min Dr. Preet Farrar DO Work Phone: 1(476)743-662174 [place] [address] 01-26-2025 08:18-0400 Respiratory rate 18 /min Dr. Preet Farrar DO Work Phone: 5(400)268-610174 [place] [address] 01-26-2025 08:18-0400 Systolic blood pressure 144 mm[Hg] Dr. Preet Farrar DO Work Phone: 6(090)216-623674 [place] [address] 01-09-2025 11:11-0400 Body mass index (BMI) [Ratio] 36.1 kg/m2 Dr. Preet Farrar DO Work Phone: 8(910)309-925574 [place] [address] 01-09-2025 11:11-0400 Body weight 84.[address] Preet Farrar DO Work Phone: 5(133)251-730674 [place] [address] 01-09-2025 11:11-0400 Diastolic blood pressure 87 mm[Hg] Dr. Preet Farrar DO Work Phone: 5(860)085-264474 [place] [address] 01-09-2025 11:11-0400 Systolic blood pressure 145 mm[Hg] Dr. Preet Farrar DO Work Phone: 1(844)793-574274 [place] [address] 12-28-2024 14:12-0400 Body temperature 98.5 [degF] Dr. Preet Farrar DO Work Phone: 9(767)203-082878 [place] [address] 12-28-2024 14:12-0400 Diastolic blood pressure 68 mm[Hg] Dr. Preet Farrar DO Work Phone: 4(186)886-321378 [place] [address] 12-28-2024 14:12-0400 Heart rate 66 /min Dr. Preet Farrar DO Work Phone: 5(157)701-260274 [place] [address] 12-28-2024 14:12-0400 Respiratory rate 16 /min Dr. Preet Farrar DO Work Phone: 4(406)690-885174 [place] [address] 12-28-2024 14:12-0400 SaO2% (BldA) [Mass fraction] 93 % Dr. Preet Farrar DO Work Phone: 1(497)214-290274 [place] [address] 12-28-2024 14:12-0400 Systolic blood pressure 159 mm[Hg] Dr. Preet Farrar DO Work Phone: 6(203)749-228874 [place] [address] 12-27-2024 20:10-0400 Inhaled oxygen concentration 99 % Dr. Preet Farrar DO Work Phone: 5(516)884-214374 [place] [address] 12-27-2024 20:10-0400 Inhaled oxygen flow rate 2 L/min Dr. Preet Farrar DO Work Phone: 1(241)762-086074 [place] [address] 12-27-2024 18:19-0400 Body height 152.[address] Preet Farrar DO Work Phone: 1(355)556-310074 [place] [address] 12-27-2024 18:19-0400 Body mass index (BMI) [Ratio] 36.4 kg/m2 Dr. Preet Farrar DO Work Phone: 6(483)156-896574 [place] [address] 12-27-2024 18:19-0400 Body weight 84.[address] Preet Farrar DO Work Phone: 0(395)866-949774 [place] [address] 12-14-2024 11:02-0400 Body height 153 cm Preet Farrar DO Work Phone: 7(845)772-994978 [place] [address] 12-14-2024 11:02-0400 Body mass index (BMI) [Ratio] 36.04 kg/m2 Preet Farrar DO Work Phone: [facility] 12-14-2024 11:02-0400 Body temperature 97 [degF] Preet Farrar DO Work Phone: [facility] 12-14-2024 11:02-0400 Body weight 84.37 kg Preet Farrar DO Work Phone: [facility] 12-14-2024 11:02-0400 Diastolic blood pressure 70 mm[Hg] Preet Farrar DO Work Phone: [facility] 12-14-2024 11:02-0400 Heart rate 64 /min Preet Farrar DO Work Phone: [facility] 12-14-2024 11:02-0400 Respiratory rate 16 /min Preet Farrar DO Work Phone: [facility] 12-14-2024 11:02-0400 Systolic blood pressure 136 mm[Hg] Preet Farrar DO Work Phone: [facility] 12-12-2024 10:53-0400 Body mass index (BMI) [Ratio] 36.7 kg/m2 Dr. Preet Farrar DO Work Phone: [facility] 12-12-2024 10:53-0400 Body weight 85.[address] Preet Farrar DO Work Phone: [facility] 12-12-2024 10:53-0400 Diastolic blood pressure 59 mm[Hg] Dr. Preet Farrar DO Work Phone: [facility] 12-12-2024 10:53-0400 Systolic blood pressure 152 mm[Hg] Dr. Preet Farrar DO Work Phone: [facility] 11-11-2024 09:46-0500 Body mass index (BMI) [Ratio] 33.98 kg/m2 Bean Isaac MD Work Phone: [facility] 11-11-2024 09:46-0500 Body temperature 97.11 [degF] Bean Isaac MD Work Phone: [facility] 11-11-2024 09:46-0500 Body weight 81.65 kg Bean Isaac MD Work Phone: [facility] 11-11-2024 09:46-0500 Diastolic blood pressure 74 mm[Hg] Bean Isaac MD Work Phone: [facility] 11-11-2024 09:46-0500 Heart rate 89 /min Bean Isaac MD Work Phone: [facility] 11-11-2024 09:46-0500 SaO2% (BldA) [Mass fraction] 97 % Bean Isaac MD Work Phone: [facility] 11-11-2024 09:46-0500 Systolic blood pressure 124 mm[Hg] Bean Isaac MD Work Phone: [facility] 10-07-2024 10:58-0500 Body height 155 cm Preet Farrar DO Work Phone: [facility] 10-07-2024 10:58-0500 Body mass index (BMI) [Ratio] 34.38 kg/m2 Preet Farrar DO Work Phone: [facility] 10-07-2024 10:58-0500 Body temperature 97 [degF] Preet Farrar DO Work Phone: [facility] 10-07-2024 10:58-0500 Body weight 82.6 kg Preet Farrar DO Work Phone: [facility] 10-07-2024 10:58-0500 Diastolic blood pressure 60 mm[Hg] Preet Farrar DO Work Phone: [facility] 10-07-2024 10:58-0500 Heart rate 64 /min Preet Farrar DO Work Phone: [facility] 10-07-2024 10:58-0500 Respiratory rate 20 /min Preet Farrar DO Work Phone: [facility] 10-07-2024 10:58-0500 Systolic blood pressure 116 mm[Hg] Preet Farrar DO Work Phone: [facility] 09-13-2024 13:58-0500 Body mass index (BMI) [Ratio] 35.3 kg/m2 Dr. Preet Farrar DO Work Phone: [facility] 09-13-2024 13:58-0500 Body weight 82.[address] Preet Farrar DO Work Phone: [facility] 09-13-2024 13:58-0500 Diastolic blood pressure 69 mm[Hg] Dr. Preet Farrar DO Work Phone: 0(364)284-687878 [place] [address] 09-13-2024 13:58-0500 Heart rate 69 /min Dr. Preet Farrar DO Work Phone: [facility] 09-13-2024 13:58-0500 Respiratory rate 18 /min Dr. Preet Farrar DO Work Phone: 7(081)067-129378 [place] [address] 09-13-2024 13:58-0500 SaO2% (BldA) [Mass fraction] 96 % Dr. Preet Farrar DO Work Phone: 7(511)590-484478 [place] [address] 09-13-2024 13:58-0500 Systolic blood pressure 153 mm[Hg] Dr. Preet Farrar DO Work Phone: [facility] 08-11-2024 09:47-0500 Body mass index (BMI) [Ratio] 35.58 kg/m2 Bean Isaac MD Work Phone: [facility] 08-11-2024 09:47-0500 Body temperature 98.2 [degF] Bean Isaac MD Work Phone: [facility] 08-11-2024 09:47-0500 Body weight 82.64 kg Bean Isaac MD Work Phone: [facility] 08-11-2024 09:47-0500 Diastolic blood pressure 67 mm[Hg] Bean Isaac MD Work Phone: [facility] 08-11-2024 09:47-0500 Heart rate 69 /min Bean Isaac MD Work Phone: [facility] 08-11-2024 09:47-0500 SaO2% (BldA) [Mass fraction] 97 % Bean Isaac MD Work Phone: [facility] 08-11-2024 09:47-0500 Systolic blood pressure 150 mm[Hg] Bean Isaac MD Work Phone: [facility] 06-14-2024 14:18-0400 Body mass index (BMI) [Ratio] 33.58 kg/m2 Preet Farrar DO Work Phone: [facility] 06-14-2024 14:18-0400 Body temperature 98.01 [degF] Preet Farrar DO Work Phone: [facility] 06-14-2024 14:18-0400 Body weight 78 kg Preet Farrar DO Work Phone: [facility] 06-14-2024 14:18-0400 Diastolic blood pressure 70 mm[Hg] Preet Farrar DO Work Phone: [facility] 06-14-2024 14:18-0400 Heart rate 76 /min Preet Farrar DO Work Phone: [facility] 06-14-2024 14:18-0400 Respiratory rate 16 /min Preet Farrar DO Work Phone: [facility] 06-14-2024 14:18-0400 Systolic blood pressure 136 mm[Hg] Preet Farrar DO Work Phone: [facility] 05-25-2024 14:32-0400 Body mass index (BMI) [Ratio] 32.89 kg/m2 Catalina Young APRN.DRAW FIRE OPERATOR Work Phone: [facility] 05-25-2024 14:32-0400 Body weight 76.4 kg Catalina Young APRN.DRAW FIRE OPERATOR Work Phone: [facility] 05-25-2024 14:32-0400 Diastolic blood pressure 72 mm[Hg] Catalina Podlogar RECREATION THERAPY AIDES TEACHER.DRAW FIRE OPERATOR Work Phone: [facility] 05-25-2024 14:32-0400 Heart rate 80 /min Catalina Podlogar RECREATION THERAPY AIDES TEACHER.DRAW FIRE OPERATOR Work Phone: [facility] 05-25-2024 14:32-0400 Respiratory rate 18 /min Catalina Podlogar RECREATION THERAPY AIDES TEACHER.DRAW FIRE OPERATOR Work Phone: [facility] 05-25-2024 14:32-0400 SaO2% (BldA) [Mass fraction] 93 % Catalina Podlogar RECREATION THERAPY AIDES TEACHER.DRAW FIRE OPERATOR Work Phone: [facility] 05-25-2024 14:32-0400 Systolic blood pressure 106 mm[Hg] Catalina Podlogar RECREATION THERAPY AIDES TEACHER.DRAW FIRE OPERATOR Work Phone: [facility] 05-10-2024 13:29-0400 Body height 152.4 cm Bean Isaac MD Work Phone: [facility] 05-10-2024 13:29-0400 Body mass index (BMI) [Ratio] 33.55 kg/m2 Bean Isaac MD Work Phone: [facility] 05-10-2024 13:29-0400 Body weight 77.93 kg Bean Isaac MD Work Phone: [facility] 05-10-2024 13:29-0400 Diastolic blood pressure 78 mm[Hg] Bean Isaac MD Work Phone: [facility] 05-10-2024 13:29-0400 Heart rate 76 /min Bean Isaac MD Work Phone: [facility] 05-10-2024 13:29-0400 Respiratory rate 18 /min Bean Isaac MD Work Phone: [facility] 05-10-2024 13:29-0400 SaO2% (BldA) [Mass fraction] 97 % Bean Isaac MD Work Phone: [facility] 05-10-2024 13:29-0400 Systolic blood pressure 138 mm[Hg] Bean Isaac MD Work Phone: [facility] 03-21-2024 10:23-0400 Body mass index (BMI) [Ratio] 31.83 kg/m2 Preet Farrar DO Work Phone: [facility] 03-21-2024 10:23-0400 Body temperature 96.69 [degF] Preet Farrar DO Work Phone: [facility] 03-21-2024 10:23-0400 Body weight 73.94 kg Preet Farrar DO Work Phone: [facility] 03-21-2024 10:23-0400 Diastolic blood pressure 80 mm[Hg] Preet Farrar DO Work Phone: [facility] 03-21-2024 10:23-0400 Heart rate 64 /min Preet Farrar DO Work Phone: [facility] 03-21-2024 10:23-0400 Respiratory rate 16 /min Preet Farrar DO Work Phone: [facility] 03-21-2024 10:23-0400 Systolic blood pressure 136 mm[Hg] Preet Farrar DO Work Phone: [facility] 01-27-2024 10:55-0400 Body mass index (BMI) [Ratio] 32.15 kg/m2 Jacqueline Candelario RECREATION THERAPY AIDES TEACHER.DRAW FIRE OPERATOR Work Phone: [facility] 01-27-2024 10:55-0400 Body weight 74.67 kg Jacqueline Candelario RECREATION THERAPY AIDES TEACHER.DRAW FIRE OPERATOR Work Phone: [facility] 01-27-2024 10:55-0400 Diastolic blood pressure 68 mm[Hg] Jacqueline Candelario RECREATION THERAPY AIDES TEACHER.DRAW FIRE OPERATOR Work Phone: [facility] 01-27-2024 10:55-0400 Heart rate 64 /min Jacqueline Candelario RECREATION THERAPY AIDES TEACHER.DRAW FIRE OPERATOR Work Phone: [facility] 01-27-2024 10:55-0400 Respiratory rate 16 /min Jacqueline Candelario RECREATION THERAPY AIDES TEACHER.DRAW FIRE OPERATOR Work Phone: [facility] 01-27-2024 10:55-0400 Systolic blood pressure 124 mm[Hg] Jacqueline Candelario RECREATION THERAPY AIDES TEACHER.DRAW FIRE OPERATOR Work Phone: [facility] 01-06-2024 11:06-0400 Body weight 74.39 kg Jacqueline Candelario RECREATION THERAPY AIDES TEACHER.DRAW FIRE OPERATOR Work Phone: [facility] 01-06-2024 11:06-0400 Diastolic blood pressure 64 mm[Hg] Jacqueline Candelario RECREATION THERAPY AIDES TEACHER.DRAW FIRE OPERATOR Work Phone: [facility] 01-06-2024 11:06-0400 Heart rate 62 /min Jacqueline Candelario RECREATION THERAPY AIDES TEACHER.DRAW FIRE OPERATOR Work Phone: [facility] 01-06-2024 11:06-0400 Respiratory rate 16 /min Jacqueline Candelario RECREATION THERAPY AIDES TEACHER.DRAW FIRE OPERATOR Work Phone: [facility] 01-06-2024 11:06-0400 Systolic blood pressure 130 mm[Hg] Jacqueline Candelario RECREATION THERAPY AIDES TEACHER.DRAW FIRE OPERATOR Work Phone: [facility] 01-02-2024 12:34-0400 Body temperature 97.39 [degF] Jemima Iyer RECREATION THERAPY AIDES TEACHER.DRAW FIRE OPERATOR Work Phone: [facility] 01-02-2024 12:34-0400 Body weight 74.1 kg Jemima Iyer RECREATION THERAPY AIDES TEACHER.DRAW FIRE OPERATOR Work Phone: [facility] 01-02-2024 12:34-0400 Diastolic blood pressure 82 mm[Hg] Jemima Iyer RECREATION THERAPY AIDES TEACHER.DRAW FIRE OPERATOR Work Phone: [facility] 01-02-2024 12:34-0400 Heart rate 80 /min Jemima Iyer RECREATION THERAPY AIDES TEACHER.DRAW FIRE OPERATOR Work Phone: [facility] 01-02-2024 12:34-0400 Respiratory rate 16 /min Jemima Iyer RECREATION THERAPY AIDES TEACHER.DRAW FIRE OPERATOR Work Phone: [facility] 01-02-2024 12:34-0400 SaO2% (BldA) [Mass fraction] 98 % Jemima Iyer RECREATION THERAPY AIDES TEACHER.DRAW FIRE OPERATOR Work Phone: [facility] 01-02-2024 12:34-0400 Systolic blood pressure 132 mm[Hg] Jemima Iyer RECREATION THERAPY AIDES TEACHER.DRAW FIRE OPERATOR Work Phone: [facility] 12-09-2023 17:34-0400 Body temperature 97.39 [degF] Preet Farrar DO Work Phone: [facility] 12-09-2023 17:34-0400 Body weight 74.39 kg Preet Farrar DO Work Phone: [facility] 12-09-2023 17:34-0400 Diastolic blood pressure 80 mm[Hg] Preet Farrar DO Work Phone: [facility] 12-09-2023 17:34-0400 Heart rate 80 /min Preet Farrar DO Work Phone: [facility] 12-09-2023 17:34-0400 Respiratory rate 12 /min Preet Farrar DO Work Phone: [facility] 12-09-2023 17:34-0400 Systolic blood pressure 130 mm[Hg] Preet Farrar DO Work Phone: [facility] 11-25-2023 02:49-0500 Blood Pressure Cuff Size ELOISA LEVIN MD [facility] 11-25-2023 02:49-0500 Blood Pressure Location ELOISA LEVIN MD [facility] 11-25-2023 02:49-0500 Blood Pressure Method ELOISA LEVIN MD [facility] 11-25-2023 02:49-0500 Diastolic Blood Pressure Non-Invasive 80 mm[Hg] ELOISA LEVIN MD [facility] 11-25-2023 02:49-0500 Systolic Blood Pressure Non-Invasive 164 mm[Hg] ELOISA LEVIN MD [facility] 11-25-2023 00:35-0500 Diastolic Blood Pressure Non-Invasive 83 mm[Hg] ELOISA LEVIN MD [facility] 11-25-2023 00:35-0500 Heart rate 79 /min ELOISA LEVIN MD [facility] 11-25-2023 00:35-0500 Respiratory rate 18 /min ELOISA LEVIN MD [facility] 11-25-2023 00:35-0500 Systolic Blood Pressure Non-Invasive 177 mm[Hg] ELOISA LEVIN MD [facility] 11-24-2023 22:22-0500 Diastolic Blood Pressure Non-Invasive 81 mm[Hg] ELOISA LEVIN MD [facility] 11-24-2023 22:22-0500 Heart rate 72 /min ELOISA LEVIN MD [facility] 11-24-2023 22:22-0500 Respiratory rate 20 /min ELOISA LEVIN MD [facility] 11-24-2023 22:22-0500 Systolic Blood Pressure Non-Invasive 147 mm[Hg] ELOISA LEVIN MD [facility] 11-24-2023 18:48-0500 Body temperature 98.06 [degF] ELOISA LEVIN MD [facility] 11-24-2023 18:48-0500 Body weight 76.7 kg ELOISA LEVIN MD [facility] 11-24-2023 18:48-0500 Heart rate 80 /min ELOISA LEVIN MD [facility] 11-24-2023 18:48-0500 Respiratory rate 20 /min ELOISA LEVIN MD [facility] 11-19-2023 09:24-0500 Body weight 76.2 kg Jacqueline Candelario APRN.CNP Work Phone: [facility] 11-19-2023 09:24-0500 Diastolic blood pressure 60 mm[Hg] Jacqueline Candelario RECREATION THERAPY AIDES TEACHER.DRAW FIRE OPERATOR Work Phone: [facility] 11-19-2023 09:24-0500 Heart rate 64 /min Jacqueline Candelario RECREATION THERAPY AIDES TEACHER.DRAW FIRE OPERATOR Work Phone: [facility] 11-19-2023 09:24-0500 Respiratory rate 12 /min Jacqueline Candelario RECREATION THERAPY AIDES TEACHER.DRAW FIRE OPERATOR Work Phone: [facility] 11-19-2023 09:24-0500 Systolic blood pressure 100 mm[Hg] Jacqueline Candelario RECREATION THERAPY AIDES TEACHER.DRAW FIRE OPERATOR Work Phone: [facility] 11-13-2023 08:57-0500 Body weight 76.2 kg Jacqueline Candelario RECREATION THERAPY AIDES TEACHER.DRAW FIRE OPERATOR Work Phone: [facility] 11-13-2023 08:57-0500 Diastolic blood pressure 70 mm[Hg] Jacqueline Candelario RECREATION THERAPY AIDES TEACHER.DRAW FIRE OPERATOR Work Phone: [facility] 11-13-2023 08:57-0500 Heart rate 64 /min Jacqueline Candelario RECREATION THERAPY AIDES TEACHER.DRAW FIRE OPERATOR Work Phone: [facility] 11-13-2023 08:57-0500 Respiratory rate 16 /min Jacqueline Candelario RECREATION THERAPY AIDES TEACHER.DRAW FIRE OPERATOR Work Phone: [facility] 11-13-2023 08:57-0500 Systolic blood pressure 160 mm[Hg] Jacqueline Candelario RECREATION THERAPY AIDES TEACHER.DRAW FIRE OPERATOR Work Phone: [facility] 10-29-2023 09:13-0500 Body weight 75.75 kg Jacqueline Candelario RECREATION THERAPY AIDES TEACHER.DRAW FIRE OPERATOR Work Phone: [facility] 10-29-2023 09:13-0500 Diastolic blood pressure 62 mm[Hg] Jacqueline Candelario RECREATION THERAPY AIDES TEACHER.DRAW FIRE OPERATOR Work Phone: [facility] 10-29-2023 09:13-0500 Heart rate 64 /min Jacqueline Candelario RECREATION THERAPY AIDES TEACHER.DRAW FIRE OPERATOR Work Phone: [facility] 10-29-2023 09:13-0500 Respiratory rate 14 /min Jacqueline Candelario RECREATION THERAPY AIDES TEACHER.DRAW FIRE OPERATOR Work Phone: [facility] 10-29-2023 09:13-0500 Systolic blood pressure 150 mm[Hg] Jacqueline Candelario RECREATION THERAPY AIDES TEACHER.DRAW FIRE OPERATOR Work Phone: [facility] 07-27-2023 10:58-0400 Body height 152.[address] Preet Farrar Work Phone: [facility] 07-27-2023 10:58-0400 Body temperature 98 [degF] Dr. Preet Farrar Work Phone: 2(891)503-158378 [place] [address] 07-27-2023 10:58-0400 Diastolic blood pressure 80 mm[Hg] Dr. Preet Farrar Work Phone: 0(897)406-309478 [place] [address] 07-27-2023 10:58-0400 Heart rate 88 /min Dr. Preet Farrar Work Phone: [facility] 07-27-2023 10:58-0400 Respiratory rate 15 /min Dr. Preet Farrar Work Phone: [facility] 07-27-2023 10:58-0400 SaO2% (BldA) [Mass fraction] 98 % Dr. Preet Farrar Work Phone: [facility] 07-27-2023 10:58-0400 Systolic blood pressure 129 mm[Hg] Dr. Preet Farrar Work Phone: [facility] 07-15-2023 10:01-0400 Body weight 72.85 kg Kathryn Valeroman RECREATION THERAPY AIDES TEACHER.DRAW FIRE OPERATOR Work Phone: [facility] 07-15-2023 10:01-0400 Diastolic blood pressure 74 mm[Hg] Kathryn Martir RECREATION THERAPY AIDES TEACHER.DRAW FIRE OPERATOR Work Phone: [facility] 07-15-2023 10:01-0400 Heart rate 84 /min Kathryn Martir RECREATION THERAPY AIDES TEACHER.DRAW FIRE OPERATOR Work Phone: [facility] 07-15-2023 10:01-0400 Respiratory rate 16 /min Kathryn Rivero APRN.DRAW FIRE OPERATOR Work Phone: [facility] 07-15-2023 10:01-0400 SaO2% (BldA) [Mass fraction] 98 % Kathryn Rivero RECREATION THERAPY AIDES TEACHER.DRAW FIRE OPERATOR Work Phone: [facility] 07-15-2023 10:01-0400 Systolic blood pressure 126 mm[Hg] Kathryn Rivero RECREATION THERAPY AIDES TEACHER.DRAW FIRE OPERATOR Work Phone: [facility] 07-03-2023 08:40-0400 Body temperature 97.9 [degF] Dr. Preet Farrar Work Phone: 7(151)153-897178 [place] [address] 07-03-2023 08:40-0400 Diastolic blood pressure 55 mm[Hg] Dr. Preet Farrar Work Phone: 5(829)566-442678 [place] [address] 07-03-2023 08:40-0400 Heart rate 69 /min Dr. Preet Farrar Work Phone: 9(420)381-516678 [place] [address] 07-03-2023 08:40-0400 Respiratory rate 16 /min Dr. Preet Farrar Work Phone: 5(032)930-306474 [place] [address] 07-03-2023 08:40-0400 SaO2% (BldA) [Mass fraction] 97 % Dr. Preet Frarar Work Phone: 4(040)496-281878 [place] [address] 07-03-2023 08:40-0400 Systolic blood pressure 139 mm[Hg] Dr. Preet Farrar Work Phone: 4(548)505-180778 [place] [address] 07-03-2023 05:54-0400 Body mass index (BMI) [Ratio] 30.7 kg/m2 Dr. Preet Farrar Work Phone: 7(677)635-198378 [place] [address] 07-03-2023 05:54-0400 Body weight 71.[address] Preet Farrar Work Phone: [facility] 06-26-2023 09:04-0400 Body weight 71.31 kg Jacqueline Candelario RECREATION THERAPY AIDES TEACHER.DRAW FIRE OPERATOR Work Phone: [facility] 06-26-2023 09:04-0400 Diastolic blood pressure 60 mm[Hg] Jacqueline Candelario RECREATION THERAPY AIDES TEACHER.DRAW FIRE OPERATOR Work Phone: [facility] 06-26-2023 09:04-0400 Heart rate 100 /min Jacqueline Candelario RECREATION THERAPY AIDES TEACHER.DRAW FIRE OPERATOR Work Phone: [facility] 06-26-2023 09:04-0400 Respiratory rate 14 /min Jacqueline Candelario RECREATION THERAPY AIDES TEACHER.DRAW FIRE OPERATOR Work Phone: [facility] 06-26-2023 09:04-0400 Systolic blood pressure 122 mm[Hg] Jacqueline Candelario RECREATION THERAPY AIDES TEACHER.DRAW FIRE OPERATOR Work Phone: [facility] 06-19-2023 10:41-0400 Body weight 74.39 kg Kathryn Martir RECREATION THERAPY AIDES TEACHER.DRAW FIRE OPERATOR Work Phone: [facility] 06-19-2023 10:41-0400 Diastolic blood pressure 68 mm[Hg] Kathryn Martir RECREATION THERAPY AIDES TEACHER.DRAW FIRE OPERATOR Work Phone: [facility] 06-19-2023 10:41-0400 Heart rate 73 /min Kathryn Martir RECREATION THERAPY AIDES TEACHER.DRAW FIRE OPERATOR Work Phone: [facility] 06-19-2023 10:41-0400 Respiratory rate 16 /min Kathryn Martir RECREATION THERAPY AIDES TEACHER.DRAW FIRE OPERATOR Work Phone: [facility] 06-19-2023 10:41-0400 SaO2% (BldA) [Mass fraction] 97 % Kathryn Martir RECREATION THERAPY AIDES TEACHER.DRAW FIRE OPERATOR Work Phone: [facility] 06-19-2023 10:41-0400 Systolic blood pressure 118 mm[Hg] Kathryn Martir RECREATION THERAPY AIDES TEACHER.DRAW FIRE OPERATOR Work Phone: [facility] 04-30-2023 08:37-0400 Body weight 75.03 kg Jacqueline Candelario RECREATION THERAPY AIDES TEACHER.DRAW FIRE OPERATOR Work Phone: [facility] 04-30-2023 08:37-0400 Diastolic blood pressure 82 mm[Hg] Jacqueline Candelario RECREATION THERAPY AIDES TEACHER.DRAW FIRE OPERATOR Work Phone: [facility] 04-30-2023 08:37-0400 Heart rate 60 /min Jacqueline Candelario RECREATION THERAPY AIDES TEACHER.DRAW FIRE OPERATOR Work Phone: [facility] 04-30-2023 08:37-0400 Respiratory rate 16 /min Jacqueline Candelario RECREATION THERAPY AIDES TEACHER.DRAW FIRE OPERATOR Work Phone: [facility] 04-30-2023 08:37-0400 Systolic blood pressure 132 mm[Hg] Jacqueline Candelario RECREATION THERAPY AIDES TEACHER.DRAW FIRE OPERATOR Work Phone: [facility] 03-18-2023 10:27-0400 Body temperature 97.5 [degF] Preet Farrar DO Work Phone: [facility] 03-18-2023 10:27-0400 Body weight 76.66 kg Preet Farrar DO Work Phone: [facility] 03-18-2023 10:27-0400 Diastolic blood pressure 80 mm[Hg] Preet Farrar DO Work Phone: [facility] 03-18-2023 10:27-0400 Heart rate 80 /min Preet Farrar DO Work Phone: [facility] 03-18-2023 10:27-0400 Respiratory rate 16 /min Preet Farrar DO Work Phone: [facility] 03-18-2023 10:27-0400 Systolic blood pressure 130 mm[Hg] Preet Farrar DO Work Phone: [facility] 03-16-2023 09:56-0400 Body height 152.[address] Preet Farrar Work Phone: [facility] 03-16-2023 09:56-0400 Body mass index (BMI) [Ratio] 32.9 kg/m2 Dr. Preet Farrar Work Phone: [facility] 03-16-2023 09:56-0400 Body temperature 98.2 [degF] Dr. Preet Farrar Work Phone: [facility] 03-16-2023 09:56-0400 Body weight 76.[address] Preet Farrar Work Phone: [facility] 03-16-2023 09:56-0400 Diastolic blood pressure 70 mm[Hg] Dr. Preet Farrar Work Phone: [facility] 03-16-2023 09:56-0400 Heart rate 78 /min Dr. Preet Farrar Work Phone: [facility] 03-16-2023 09:56-0400 Respiratory rate 17 /min Dr. Preet Farrar Work Phone: [facility] 03-16-2023 09:56-0400 SaO2% (BldA) [Mass fraction] 96 % Dr. Preet Farrar Work Phone: [facility] 03-16-2023 09:56-0400 Systolic blood pressure 136 mm[Hg] Dr. Preet Farrar Work Phone: [facility] 12-10-2022 09:04-0400 Body temperature 97 [degF] Preet Farrar DO Work Phone: [facility] 12-10-2022 09:04-0400 Body weight 79.83 kg Preet Farrar DO Work Phone: [facility] 12-10-2022 09:04-0400 Diastolic blood pressure 80 mm[Hg] Preet Farrar DO Work Phone: [facility] 12-10-2022 09:04-0400 Heart rate 68 /min Preet Farrar DO Work Phone: [facility] 12-10-2022 09:04-0400 Respiratory rate 16 /min Preet Farrar DO Work Phone: [facility] 12-10-2022 09:04-0400 Systolic blood pressure 138 mm[Hg] Preet Farrar DO Work Phone: [facility] 11-05-2022 11:17-0500 Body weight 79.56 kg Jacqueline Candelario APRN.CNP Work Phone: [facility] 11-05-2022 11:17-0500 Diastolic blood pressure 62 mm[Hg] Jacqueline Candelario RECREATION THERAPY AIDES TEACHER.DRAW FIRE OPERATOR Work Phone: [facility] 11-05-2022 11:17-0500 Heart rate 72 /min Jacqueline Candelario RECREATION THERAPY AIDES TEACHER.DRAW FIRE OPERATOR Work Phone: [facility] 11-05-2022 11:17-0500 Respiratory rate 16 /min Jacqueline Candelario RECREATION THERAPY AIDES TEACHER.DRAW FIRE OPERATOR Work Phone: [facility] 11-05-2022 11:17-0500 Systolic blood pressure 110 mm[Hg] Jacqueline Candelario RECREATION THERAPY AIDES TEACHER.DRAW FIRE OPERATOR Work Phone: [facility] 11-04-2022 12:18-0500 Body mass index (BMI) [Ratio] 34.7 kg/m2 Dr. Preet Farrar Work Phone: [facility] 11-04-2022 12:16-0500 Body temperature 98.4 [degF] Dr. Preet Farrar Work Phone: [facility] 11-04-2022 12:16-0500 Diastolic blood pressure 61 mm[Hg] Dr. Preet Farrar Work Phone: 1(212)401-545[address] [place] [address] 11-04-2022 12:16-0500 Heart rate 63 /min Dr. Preet Farrar Work Phone: [facility] 11-04-2022 12:16-0500 Respiratory rate 15 /min Dr. Preet Farrar Work Phone: [facility] 11-04-2022 12:16-0500 SaO2% (BldA) [Mass fraction] 95 % Dr. Preet Farrar Work Phone: 7(425)844-732278 [place] [address] 11-04-2022 12:16-0500 Systolic blood pressure 123 mm[Hg] Dr. Preet Farrar Work Phone: [facility] 11-02-2022 17:26-0500 Body height 152.[address] Preet Farrar Work Phone: [facility] 11-02-2022 17:26-0500 Body weight 80.[address] Preet Farrar Work Phone: [facility] 02-19-2022 11:46-0400 Diastolic blood pressure 80 mm[Hg] Preet Farrar DO Work Phone: [facility] 02-19-2022 11:46-0400 Systolic blood pressure 160 mm[Hg] Preet Farrar DO Work Phone: [facility] 02-19-2022 11:20-0400 Body temperature 97.39 [degF] Preet Farrar DO Work Phone: [facility] 02-19-2022 11:20-0400 Heart rate 64 /min Preet Farrar DO Work Phone: [facility] 02-19-2022 11:20-0400 Respiratory rate 16 /min Preet Farrar DO Work Phone: [facility] 01-31-2022 11:15-0400 Diastolic blood pressure 84 mm[Hg] Kathryn Martir RECREATION THERAPY AIDES TEACHER.DRAW FIRE OPERATOR Work Phone: [facility] 01-31-2022 11:15-0400 Heart rate 66 /min Kathryn Martir RECREATION THERAPY AIDES TEACHER.DRAW FIRE OPERATOR Work Phone: [facility] 01-31-2022 11:15-0400 Respiratory rate 16 /min Kathryn Martir RECREATION THERAPY AIDES TEACHER.DRAW FIRE OPERATOR Work Phone: [facility] 01-31-2022 11:15-0400 Systolic blood pressure 156 mm[Hg] Kathryn Martir RECREATION THERAPY AIDES TEACHER.DRAW FIRE OPERATOR Work Phone: [facility] 01-23-2022 16:37-0400 Body temperature 97.9 [degF] Nataly Ryan APRN.DRAW FIRE OPERATOR Work Phone: [facility] 01-23-2022 16:37-0400 Diastolic blood pressure 96 mm[Hg] Nataly Ryan RECREATION THERAPY AIDES TEACHER.DRAW FIRE OPERATOR Work Phone: [facility] 01-23-2022 16:37-0400 Heart rate 79 /min Nataly Ryan RECREATION THERAPY AIDES TEACHER.DRAW FIRE OPERATOR Work Phone: [facility] 01-23-2022 16:37-0400 Respiratory rate 18 /min Nataly Ryan APRN.DRAW FIRE OPERATOR Work Phone: [facility] 01-23-2022 16:37-0400 SaO2% (BldA) [Mass fraction] 98 % Nataly Ryan APRN.DRAW FIRE OPERATOR Work Phone: [facility] 01-23-2022 16:37-0400 Systolic blood pressure 182 mm[Hg] Nataly Ryan APRN.DRAW FIRE OPERATOR Work Phone: [facility] 12-28-2020 10:47-0400 Body Temperature 96.69 [degF] d [...] Encounter for other preprocedural examination Anushka Tolbert [facility] Start: 06-21-2025 End: 06-21-[address] Anushka Isaac MD -[facility] Work Phone: Start: 06-21-2025 End: 06-21-[address] Preet Farrar DO Work Phone: -[facility] Start: 05-31-2025 End: 05-31-2025 Telephone encounter Preet Farrar DO Work Phone: [facility] [place] Comment on above: Insurance Authorizat ion Start: 05-31-2025 End: 05-31-2025 Patient encounter procedure Preet Farrar DO Work Phone: [facility] [place] Comment on above: Uncontrolled type 2 diabetes mellitus with hyperglycemia (HCC) (Primary Dx); Acquired hypothyroidism; Hyperlipidemia, mixed; Essential hypertension, benign; Obesity, Class II, BMI 35-39.9 Start: 05-31-2025 End: 05-31-2025 ambulatory PREET FARRAR Facility:[facility] Start: 05-26-2025 ambulatory Anushka Jauregui lity:[facility] Start: 05-26-2025 Non-patient / Non-visit Dr. Ton Isaac MD -[facility] Start: 05-25-2025 End: 05-25-2025 Emergency department patient visit Dr. Preet Farrar DO Work Phone: -Emergency Department Work Phone: Start: 05-23-2025 End: 05-23-2025 ambulatory PREET FARRAR Facility:[facility] Start: 05-15-2025 End: 05-15-2025 Refill Preet Farrar DO Work Phone: [facility] [place] Comment on above: Refill Request; Lab Orders Start: 04-28-2025 End: 04-28-2025 ambulatory PREET FARRAR Facility:[facility] Start: 04-19-2025 End: 04-19-2025 Refill Preet Farrar DO Work Phone: Family [facility] [place] Comment on above: Refill Request Start: 04-18-2025 End: 04-27-2025 Follow-up encounter Liliana Bennett APRN.DRAW FIRE OPERATOR Work Phone: [facility] [place] Start: 04-18-2025 End: 04-18-2025 ambulatory PREET FARRAR Facility:[facility] Start: 04-18-2025 End: 04-18-2025 Office outpatient visit 40 minutes Liliana Bennett APRN.DRAW FIRE OPERATOR Work Phone: [facility] [place] Comment on above: Type 2 diabetes belinda itus with hyperosmolarity without coma, with long-term current use of insulin (HCC) (Primary Dx); Uncontrolled type 2 diabetes mellitus with hyperglycemia (HCC); Encounter for diabetes education; Situational anxiety; Obesity, Class II, BMI 35-39.9; Essential hypertension, benign Start: 04-18-2025 End: 04-18-2025 ambulatory SELF Facility:[facility] Start: 04-17-2025 End: 04-17-2025 Telephone encounter Preet Farrar DO Work Phone: [facility] [place] Comment on above: Patient Update Start: 04-16-2025 End: 04-16-2025 ambulatory Darline Ng RN NURSE SPECIAL [employer] Comment on above: High Blood Sugar Start: 04-15-2025 End: 04-15-2025 Emergency department patient visit Dr. Preet Farrar DO Work Phone: -Emergency Department Work Phone: Start: 04-06-2025 End: 04-07-2025 Telephone encounter Preet Farrar DO Work Phone: [facility] [place] Comment on above: Insurance Authorizat ion Start: 04-03-2025 End: 04-03-2025 Refill Preet Farrar DO Work Phone: [facility] [place] Comment on above: Refill Request Start: 03-29-2025 End: 03-29-2025 ambulatory DAYANAND MAKEY Facility:[facility] Start: 03-24-2025 End: 03-24-2025 Follow-up encounter Liliana Bennett APRN.DRAW FIRE OPERATOR Work Phone: Family [facility] Start: 03-22-2025 End: 03-22-2025 Office outpatient visit 15 minutes Liliana Bennett APRN.DRAW FIRE OPERATOR Work Phone: [facility] Comment on above: Uncontrolled type 2 diabetes mellitus with hyperglycemia (HCC); Screening for depression Start: 03-22-2025 End: 03-22-2025 Refill Liliana Bennett APRN.DRAW FIRE OPERATOR Work Phone: [facility] Start: 03-18-2025 End: 03-20-2025 Telephone encounter Preet Farrar DO Work Phone: [facility] Comment on above: Patient Update Start: 03-16-2025 End: 03-16-2025 Telephone encounter Preet Farrar DO Work Phone: [facility] Comment on above: Patient Question (re : insulin) Start: 02-17-2025 End: 02-17-2025 ambulatory PREET FARRAR Facility:[facility] Start: 02-16-2025 End: 02-16-[address] Preet Farrar DO Work Phone: [facility] Work Phone: Start: 02-16-2025 End: 02-16-[address] Julien Reyna MD -[facility] Work Phone: Start: 02-16-2025 End: 02-16-2025 ambulatory Julien Reyna Facility:[facility] Start: 02-14-2025 End: 02-14-2025 ambulatory BEAN ISAAC Facility:[facility] Start: 02-09-2025 End: 02-09-2025 Patient encounter procedure Bean Isaac MD Work Phone: Endocrinology Comment on above: Type 2 diabetes belinda itus with other circulatory complication, with long-term current use of insulin (HCC) (Primary Dx); Abnormal weight gain Start: 02-09-2025 End: 02-09-2025 ambulatory BEAN ISAAC Facility:[facility] Start: 02-06-2025 End: 02-06-[address] Anushka Isaac MD -[facility] Work Phone: Start: 02-06-2025 End: 02-06-2025 ambulatory Anushka Isaac Facility:[facility] Start: 01-26-2025 End: 01-26-[address] Julien Reyna MD -[facility] Work Phone: Start: 01-26-2025 End: 01-26-2025 ambulatory Julien Reyna Facility:[facility] Start: 01-09-2025 End: 01-09-[address] Anushka Isaac MD -[facility] Work Phone: Start: 01-09-2025 End: 01-09-2025 ambulatory Preet Farrar Facility:[facility] Start: 01-03-2025 End: 02-03-2025 ambulatory Preet L Farrar DO Work Phone: [facility] [place] Start: 12-30-2024 End: 01-03-2025 ambulatory Preet L Farrar DO Work Phone: [facility] [place] Comment on above: High Blood Sugar Start: 12-29-2024 End: 01-02-2025 Telephone encounter Preet L Farrar DO Work Phone: [facility] [place] Comment on above: Patient Question Start: 12-28-2024 Non-patient / Non-visit Dr. Ton Isaac MD -[facility] Start: 12-27-2024 Non-patient / Non-visit Dr. Renae Dallas MD -[facility] Work Phone: Start: 12-27-2024 End: 12-28-2024 Evaluation and management of inpatient Dr. Anushka Isaac MD -[facility] 3 Work Phone: Start: 12-27-2024 ambulatory Preet Farrar Facilit y:[facility] Start: 12-27-2024 Non-patient / Non-visit Dr. Ton Isaac MD -[facility] Start: 12-21-2024 End: 12-21-2024 Telephone encounter Preet Farrar DO Work Phone: [facility] [place] Comment on above: Prior Authorization Request Start: 12-19-2024 End: 12-19-2024 Telephone encounter Preet Farrra DO Work Phone: [facility] [place] Comment on above: Patient Question; Up coming Surgery Start: 12-15-2024 End: 12-15-2024 ambulatory Preet Farrar Facility:[facility] Start: 12-15-2024 End: 12-15-2024 Non-patient / Non-visit Dr. Jamel Gray MD -[place] [facility] Work Phone: Start: 12-14-2024 End: 12-14-2024 Telephone encounter Preet Farrar DO Work Phone: [facility] [place] Comment on above: Medication Question Start: 12-14-2024 End: 12-14-2024 ambulatory PREET FARRAR Facility:[facility] Start: 12-14-2024 End: 12-14-2024 Patient encounter procedure Preet Farrar DO Work Phone: [facility] [place] Comment on above: Uncontrolled type 2 diabetes mellitus with hyperglycemia (HCC) (Primary Dx); Hyperlipidemia, mixed; Vitamin B12 deficiency; Vitamin D deficiency; Essential hypertension, benign; Acquired hypothyroidism; Pre-op examination Start: 12-14-2024 End: 12-14-2024 Preprocedural examination done Preet Farrar DO Work Phone: [facility] Start: 12-12-2024 End: 12-12-[address] Anushka Isaac MD -[facility] Work Phone: Start: 12-12-2024 End: 12-12-2024 ambulatory Preet Farrar Facility:[facility] [place] [place] Start: 12-01-2024 End: 12-01-2024 Refill Preet Farrar DO Work Phone: [facility] [place] Comment on above: Refill Request Start: 11-29-2024 End: 11-29-2024 Refill Preet L Farrar DO Work Phone: [facility] Comment on above: Refill Request Start: 11-16-2024 End: 11-16-2024 ambulatory PREET L FARRAR Facility:[facility] Start: 11-11-2024 End: 11-11-2024 ambulatory PREET L FARRAR Facility:[facility] Start: 11-11-2024 End: 11-11-2024 Patient encounter procedure Bean Isaac MD Work Phone: Endocrinology Comment on above: Abnormal results of thyroid function studies (Primary Dx) Start: 11-07-2024 End: 11-07-2024 ambulatory PREET L FARRAR Facility:[facility] Start: 11-01-2024 End: 11-01-2024 Refill Preet L Farrar DO Work Phone: [facility] [place] Comment on above: Refill Request Start: 10-10-2024 ambulatory Julien Reyna Facility:[facility] Start: 10-10-2024 Non-patient / Non-visit Dr. Julien villanueva MD -[facility] Start: 10-10-2024 End: 10-10-[address] Julien Reyna MD -Cardiovascular Services Work Phone: Start: 10-10-2024 End: 10-10-2024 ambulatory Julien Reyna Facility:[facility] Start: 10-07-2024 End: 10-07-2024 ambulatory PREET Schmitt FARRAR Facility:[facility] Start: 10-07-2024 End: 10-07-2024 Patient encounter procedure Preet Keshia TrujilloFarrar DO Work Phone: [facility] Comment on above: Medicare annual well ness visit, subsequent (Primary Dx); Uncontrolled type 2 diabetes mellitus with hyperglycemia (HCC); Vitamin B12 deficiency; 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, without long-term current use of insulin (HCC); Hypothyroidism, unspecified type; Hyperlipidemia, mixed; Essential hypertension, benign; Acquired hypothyroidism; Vitamin D deficiency Start: 10-05-2024 End: 10-05-2024 ambulatory PREET L FARRAR Facility:[facility] Start: 10-04-2024 End: 10-04-2024 Telephone encounter Preet Farrar DO Work Phone: [facility] Start: 09-13-2024 End: 09-13-[address] Anushka Isaac MD -[facility] Work Phone: Start: 09-13-2024 End: 09-13-2024 ambulatory Anushka Isaac Facility:[facility] Start: 09-12-2024 End: 10-04-2024 Telephone encounter Preet Farrar DO Work Phone: [facility] Comment on above: Results Start: 09-06-2024 ambulatory Hermes Block Facility:[facility] Start: 09-06-2024 Non-patient / Non-visit Dr. Hermes chowdary MD -[facility] Start: 09-06-2024 End: 09-06-[address] Julien Reyna MD -Cardiovascular Services Work Phone: Start: 09-06-2024 End: 09-06-2024 ambulatory Julien Reyna Facility:[facility] Start: 2024 End: 2024 Refill Preet Schmitt Farrar DO Work Phone: [facility] Comment on above: Refill Request Start: 08-17-2024 End: 08-17-2024 ambulatory Julien Reyna Facility:[facility] Start: 08-11-2024 End: 08-11-2024 ambulatory PREET Schmitt FARRAR Facility:[facility] Start: 08-11-2024 End: 08-15-2024 Patient encounter procedure Bean Isaac MD Work Phone: Endocrinology Comment on above: Type 2 diabetes belinda itus with other circulatory complication, with long-term current use of insulin (HCC) (Primary Dx) Refill Request Start: 08-10-2024 End: 08-10-2024 ambulatory Preet Farrar Facility:[facility] Start: 08-09-2024 End: 08-09-2024 ambulatory Jackson Saravia MA [facility] Start: 08-09-2024 End: 08-09-2024 Patient encounter procedure Jackson Saravia MA [facility] Comment on above: Population Health Na vigation Outreach (AWV INITIATIVE) Start: 07-26-2024 End: 07-26-2024 ambulatory Anushka Isaac Facility:[facility] Start: 07-21-2024 End: 07-21-2024 ambulatory Preet Farrar Facility:[facility] [place] [place] Start: 07-20-2024 End: 07-21-2024 Telephone encounter Preet Trujillorison DO Work Phone: [facility] Start: 07-19-2024 End: 07-25-2024 Telephone encounter Preet Trujillorison DO Work Phone: [facility] Comment on above: Faxed Labs; Surgical Clearance Forms Start: 07-19-2024 End: 07-19-2024 ambulatory Anushka Isaac Facility:[facility] [place] [place] Start: 07-15-2024 End: 07-25-2024 Telephone encounter Preet Trujillorison DO Work Phone: [facility] [place] Comment on above: Results Start: 07-15-2024 End: 07-15-2024 ambulatory PREET L FARRAR Facility:[facility] Start: 06-17-2024 End: 06-17-2024 Refill Preet Keshia TrujilloFarrar DO Work Phone: [facility] Comment on above: Refill Request Start: 06-15-2024 End: 06-15-2024 Refill Preet Trujillorison DO Work Phone: [facility] [place] Comment on above: Refill Request Start: 06-14-2024 End: 06-14-2024 ambulatory PREET L FARRAR Facility:[facility] Start: 06-14-2024 End: 06-14-2024 Patient encounter procedure Preet L Farrar DO Work Phone: [facility] [place] Comment on above: Uncontrolled type 2 diabetes mellitus with hyperglycemia (HCC) (Primary Dx); Acquired hypothyroidism; Essential hypertension, benign; Vitamin B12 deficiency; Hyperlipidemia, mixed; Tobacco use disorder; Vitamin D deficiency Start: 05-25-2024 End: 05-25-2024 Patient encounter procedure Catalina Young RECREATION THERAPY AIDES TEACHER.DRAW FIRE OPERATOR Work Phone: [facility] [place] Comment on above: Thickened endometriu m (Primary Dx); LLQ pain Start: 05-23-2024 End: 05-23-2024 Telephone encounter Preet Farrar DO Work Phone: [facility] [place] Comment on above: Future Appointment Refill Request Start: 05-10-2024 End: 10-04-2024 Telephone encounter Preet Farrar DO Work Phone: [facility] [place] Comment on above: Blood Pressure; Orde rs (lab work orders needed. the orders from november is ) Start: 05-10-2024 End: 05-10-2024 Patient encounter procedure Bean Isaac MD Work Phone: Endocrinology Comment on above: Type 2 diabetes belinda itus with other circulatory complication, with long-term current use of insulin (HCC) (Primary Dx) Start: 04-12-2024 Telephone encounter Preet rojas DO Work Phone: [facility] [place] Comment on above: Patient Update (Bloo d Sugar Readings) Start: 03-22-2024 Telephone encounter Preet rojas DO Work Phone: [facility] [place] Comment on above: Insulin [place] Start: 03-21-2024 End: 03-21-2024 Patient encounter procedure Preet Farrar DO Work Phone: [facility] [place] Comment on above: Gastroenteritis (Marleen darline Dx); Uncontrolled type 2 diabetes mellitus with hyperglycemia (HCC); Acquired hypothyroidism; Obesity, Class I, BMI 30-34.9; Acute dehydration; Situational anxiety Start: 03-10-2024 Patient Outreach Preet greco DO Work Phone: [facility] [place] Comment on above: Transition Of Care Start: 02-29-2024 Refill Preet Keshia Ronniedomenic franks DO Work Phone: [facility] [place] Comment on above: Refill Request Start: 02-15-2024 Telephone encounter Jacqueline Tracey franks RECREATION THERAPY AIDES TEACHER.DRAW FIRE OPERATOR Work Phone: [facility] [place] Comment on above: Blood Sugar Readings Start: 02-03-2024 ambulatory Preet franks DO Work Phone: Internal Medicine [facility] [place] Start: 02-02-2024 Refill Preet franks DO Work Phone: [facility] [place] Comment on above: Refill Request Start: 01-27-2024 End: 01-27-2024 Patient encounter procedure Jacqueline Candelario RECREATION THERAPY AIDES TEACHER.DRAW FIRE OPERATOR Work Phone: [facility] [place] Comment on above: Uncontrolled type 2 diabetes mellitus with hyperglycemia (HCC) (Primary Dx); Vaginal yeast infection; Poor sleep Start: 01-12-2024 Telephone encounter Preet rojas DO Work Phone: [facility] [place] Comment on above: Medication Problem; yeast infection again Start: 01-06-2024 End: 01-06-2024 Refill Preet Farrar DO Work Phone: [facility] [place] Comment on above: Refill Request Uncontrolled type 2 diabetes mellitus with hyperglycemia (HCC) (Primary Dx); Situational anxiety Start: 01-03-2024 Telephone encounter Altagracia De Guzman APRN.DRAW FIRE OPERATOR Work Phone: [facility] Comment on above: Results Start: 01-02-2024 ambulatory Preet franks DO Work Phone: [facility] [place] Comment on above: vaginal symptoms Start: 01-02-2024 End: 01-02-2024 Patient encounter procedure Jemima Iyer APRN.DRAW FIRE OPERATOR Work Phone: [facility] Comment on above: Vaginal itching (Marleen darline Dx); Dysuria; Glucosuria Start: 12-24-2023 Telephone encounter Preet rojas DO Work Phone: [facility] [place] Comment on above: Patient Question Start: 12-17-2023 End: 12-17-2023 ambulatory [facility] Work Phone: Start: 12-17-2023 End: 12-17-2023 Patient encounter procedure [facility], [facility] Work Phone: Start: 12-09-2023 End: 12-09-2023 Patient encounter procedure Preet Farrar DO Work Phone: [facility] [place] Comment on above: Uncontrolled type [...] 12-08-2023 Refill Preet franks DO Work Phone: [facility] [place] Comment on above: Refill Request Start: 11-25-2023 Telephone encounter Jacqueline franks RECREATION THERAPY AIDES TEACHER.DRAW FIRE OPERATOR Work Phone: [facility] [place] Comment on above: Medication Request Start: 11-24-2023 End: 11-25-2023 Emergency department patient visit PREET FARRAR DO Facility:[facility] Start: 11-24-2023 End: 11-25-2023 Emergency department patient visit ELOISA LEVIN MD [facility] Start: 11-19-2023 Telephone encounter Jacqueline franks RECREATION THERAPY AIDES TEACHER.DRAW FIRE OPERATOR Work Phone: [facility] [place] Start: 11-19-2023 End: 11-19-2023 Patient encounter procedure Jacqueline Candelario RECREATION THERAPY AIDES TEACHER.DRAW FIRE OPERATOR Work Phone: [facility] [place] Comment on above: Essential hypertensi on, benign (Primary Dx); Situational anxiety Start: 11-18-2023 Telephone encounter Jacqueline franks RECREATION THERAPY AIDES TEACHER.DRAW FIRE OPERATOR Work Phone: [facility] [place] Comment on above: Results Start: 11-13-2023 End: 11-13-2023 Patient encounter procedure Jacqueline Candelario RECREATION THERAPY AIDES TEACHER.DRAW FIRE OPERATOR Work Phone: [facility] [place] Comment on above: Essential hypertensi on, benign (Primary Dx); Acquired hypothyroidism; Controlled type 2 diabetes mellitus without complication, with long-term current use of insulin (HCC); Uncontrolled type 2 diabetes mellitus with hyperglycemia (HCC) Start: 11-12-2023 Telephone encounter Preet rojas DO Work Phone: [facility] [place] Comment on above: Patient Update Start: 10-29-2023 End: 10-29-2023 Patient encounter procedure Jacqueline Candelario AUSTIN.DRAW FIRE OPERATOR Work Phone: [facility] [place] Comment on above: Essential hypertensi on, benign (Primary Dx) Start: 08-04-2023 Telephone encounter Preet montoyaison DO Work Phone: [facility] [place] Comment on above: Medication Question Start: 07-31-2023 Telephone encounter Preet March arrison DO Work Phone: [facility] [place] Comment on above: Results Start: 07-29-2023 ambulatory [facility] Comment on above: Population Health Na vigation Outreach ([facility] care gap) Start: 07-29-2023 Telephone encounter Preet Keshia Joaquim montoyafannie DO Work Phone: [facility] [place] Comment on above: Insurance Authorizat ion Start: 07-28-2023 Telephone encounter Preet montoyafannie DO Work Phone: [facility] [place] Comment on above: Call from Dr. Kaylin lui, Neurologist Start: 07-27-2023 End: 07-27-[address] Preet Farrar Work Phone: [facility] Work Phone: Start: 07-27-2023 End: 07-27-[address] Preet Farrar Work Phone: [facility] Work Phone: Start: 07-27-2023 End: 07-27-[address] Preet Farrar Work Phone: [facility] Work Phone: Start: 07-22-2023 Telephone encounter Kathryn Milton erik AVILA.DRAW FIRE OPERATOR Work Phone: [facility] [place] Comment on above: Medication Problem Start: 07-15-2023 End: 07-15-2023 Patient encounter procedure Kathryn Rivero APRN.DRAW FIRE OPERATOR Work Phone: [facility] Comment on above: Uncontrolled type 2 diabetes mellitus with hyperglycemia (HCC) (Primary Dx); Acquired hypothyroidism; Essential hypertension, benign; Renal artery stenosis (HCC) Start: 07-06-2023 Telephone encounter Preet rojas DO Work Phone: [facility] Start: 07-03-2023 Non-patient / Non-visit Dr. Edita Farrar Work Phone: [facility] Work Phone: Start: 07-02-2023 Non-patient / Non-visit Dr. Edita Farrar Work Phone: [facility] Work Phone: Start: 07-01-2023 End: 07-03-2023 Evaluation and management of inpatient Dr. Preet Farrar Work Phone: [facility] Work Phone: Start: 07-01-2023 Telephone encounter Preet rojas DO Work Phone: [facility] Comment on above: Patient Update Start: 06-26-2023 End: 06-26-2023 Patient encounter procedure Jacqueline Candelario APRN.DRAW FIRE OPERATOR Work Phone: [facility] Comment on above: Nausea and vomiting, unspecified vomiting type (Primary Dx); Hyperglycemia; Controlled type 2 diabetes mellitus without complication, without long-term current use of insulin (HCC) Start: 06-19-2023 End: 06-19-2023 Patient encounter procedure Kathryn Rivero APRN.DRAW FIRE OPERATOR Work Phone: [facility] Comment on above: Uncontrolled type 2 diabetes mellitus with hyperglycemia (HCC) (Primary Dx); Acquired hypothyroidism; Vitamin B12 deficiency Start: 05-18-2023 Refill Preet franks DO Work Phone: [facility] Comment on above: Refill Request Start: 05-14-2023 End: 05-14-[address] Preet Farrar Work Phone: [facility] Work Phone: Start: 05-14-2023 End: 05-14-[address] Preet Farrar Work Phone: [facility] Work Phone: Start: 05-04-2023 Telephone encounter Preet rojas DO Work Phone: [facility] Comment on above: medication issue Start: 04-30-2023 End: 04-30-2023 Patient encounter procedure Jacqueline Kodak [place] Work Phone: [facility] Comment on above: Uncontrolled type 2 diabetes mellitus with hyperglycemia (HCC) Start: 04-09-2023 End: 04-09-[address] Preet Farrar Work Phone: [facility] Work Phone: Start: 04-09-2023 End: 04-09-[address] Preet Farrar Work Phone: [facility] Work Phone: Start: 03-24-2023 Telephone encounter Preet rojas DO Work Phone: [facility] Comment on above: [place] thyroid PA Start: 03-20-[address] Preet Farrar Work Phone: [facility] Work Phone: Start: 03-20-2023 End: 03-20-2023 Non-patient / Non-visit Dr. Preet Farrar Work Phone: [facility] Work Phone: Start: 03-18-2023 End: 03-18-2023 Patient encounter procedure Preet Farrar DO Work Phone: [facility] Comment on above: Uncontrolled type 2 diabetes mellitus with hyperglycemia (HCC) (Primary Dx); Acquired hypothyroidism; Dyslipidemia; History of tobacco abuse; Essential hypertension, benign Start: 03-16-2023 End: 03-16-[address] Preet Farrar Work Phone: [facility] Work Phone: Start: 03-03-2023 Refill Preet franks DO Work Phone: [facility] [place] Comment on above: Refill Request Start: 02-02-2023 Refill Preet franks DO Work Phone: [facility] [place] Comment on above: Refill Request Start: 12-23-2022 Telephone encounter Preet Schmitt Joaquim janfannie DO Work Phone: [facility] [place] Comment on above: Medication Problem; Patient Update Start: 12-15-2022 Telephone encounter Preet rojas DO Work Phone: [facility] [place] Comment on above: Patient Update Start: 12-10-2022 End: 12-10-2022 Patient encounter procedure Preet Farrar DO Work Phone: [facility] [place] Comment on above: Uncontrolled type 2 diabetes mellitus with hyperglycemia (HCC) (Primary Dx); Ischemic stroke without residual deficits (HCC); Dyslipidemia; Acquired hypothyroidism; Vitamin D deficiency; Vitamin B12 deficiency; History of tobacco abuse Start: 11-20-2022 End: 11-20-[address] Preet Farrar Work Phone: [facility] Work Phone: Start: 11-20-2022 End: 11-20-[address] Preet Farrar Work Phone: [facility] Start: 11-05-2022 End: 11-05-2022 Patient encounter procedure Jacqueline Candelario APRN.CNP Work Phone: [facility] Comment on above: Ischemic stroke with out residual deficits (HCC) (Primary Dx); Essential hypertension, benign; Uncontrolled type 2 diabetes mellitus with hyperglycemia (HCC); Dyslipidemia; Encounter for smoking cessation counseling; Controlled type 2 diabetes mellitus without complication, without long-term current use of insulin (HCC) Start: 11-04-2022 Non-patient / Non-visit Dr. Edita Farrar Work Phone: [facility] Start: 11-03-2022 Non-patient / Non-visit Dr. Edita Farrar Work Phone: [facility] Start: 11-03-2022 Non-patient / Non-visit Dr. Edita Farrar Work Phone: [facility] Start: 11-02-2022 Non-patient / Non-visit Dr. Edita Farrar Work Phone: [facility] Start: 11-02-2022 End: 11-04-2022 Evaluation and management of inpatient Dr. Preet Farrar Work Phone: [facility] Start: 11-02-2022 End: 11-04-[address] Preet Farrar Work Phone: [facility] Work Phone: Start: 11-02-2022 ambulatory Janis soloiro RN NURSE SPECIAL SHOPPER Comment on above: Foot Deformity Start: 10-08-2022 Refill Preet franks DO Work Phone: [facility] Comment on above: Refill Request Start: 09-03-2022 Telephone encounter Preet rojas DO Work Phone: [facility] Comment on above: Patient Question; Or ders Start: 08-27-2022 Refill Preet franks DO Work Phone: [address] [place] [address] Comment on above: Refill Request Start: 05-28-2022 Refill Preet franks DO Work Phone: [facility] Comment on above: Refill Request Start: 05-06-2022 Refill Jacqueline loera APRN.CNP Work Phone: [facility] Comment on above: Refill Request Start: 04-09-2022 End: 04-09-2022 Patient encounter procedure [facility] Start: 04-07-2022 Telephone encounter Preet rojas DO Work Phone: [facility] Comment on above: Results Start: 04-02-2022 Refill Preet franks DO Work Phone: [facility] Comment on above: Refill Request Start: 03-26-2022 ambulatory Preet franks DO Work Phone: Internal Medicine [facility] Start: 02-28-2022 End: 02-28-2022 Subsequent hospital visit by physician [facility] Work Phone: Radiology Comment on above: Closed fracture of d istal end of left fibula, unspecified fracture morphology, initial encounter [T23.462A] Start: 02-27-2022 Telephone encounter Preet rojas DO Work Phone: [facility] Comment on above: Patient Question Start: 02-21-2022 Telephone encounter Preet rojas DO Work Phone: [facility] Comment on above: Results Start: 02-20-2022 Refill Preet franks DO Work Phone: [facility] Comment on above: Refill Request Start: 02-19-2022 End: 02-19-2022 Patient encounter procedure Preet Farrar DO Work Phone: [facility] Comment on above: Uncontrolled hyperte nsion (Primary Dx); Palpitations; Uncontrolled type 2 diabetes mellitus with hyperglycemia (HCC); Essential hypertension, benign; Acquired hypothyroidism Start: 02-12-2022 Telephone encounter Preet March arrfannie DO Work Phone: [facility] Comment on above: Patient Question; Wali smiley Update Start: 02-10-2022 End: 02-10-2022 Subsequent hospital visit by physician [facility] [place] [facility] Work Phone: Radiology Comment on above: Closed fracture of d istal end of left fibula, unspecified fracture morphology, initial encounter [E00.332A] Start: 01-31-2022 End: 01-31-2022 Patient encounter procedure Kathryn Rivero DRAW FIRE OPERATOR Work Phone: [facility] [place] Comment on above: Essential hypertensi on, benign [...] 01-23-2022 Subsequent hospital visit by physician [facility] [place] Work Phone: Radiology Comment on above: Acute left ankle karie n [M25.572] Start: 01-23-2022 End: 01-23-2022 Patient encounter procedure Nataly Connor TINEODRAW FIRE OPERATOR Work Phone: [facility] Comment on above: Acute left ankle karie n (Primary Dx) Start: 01-14-2022 Telephone encounter Preet rojas DO Work Phone: [facility] [place] Comment on above: Insurance Authorizat ion Start: 06-07-2021 Telephone encounter Preet rojas DO Work Phone: [facility] [place] Comment on above: Results Start: 12-21-2020 End: 12-28-2020 Evaluation and management of inpatient Mhd Yenibernadettearaceli Gunter Work Phone: [facility] Procedures Date Procedure Procedure Detail Performing Clinician Start: 04-18-2025 Gluc bld gluc mntr d ev cleared fda spec home use Liliana Bennett APRN.DRAW FIRE OPERATOR Work Phone: Start: 04-15-2025 Estimated creatinine clearance [...] 03-22-2025 Adult depression screening assessment Liliana Nuñezo RECREATION THERAPY AIDES TEACHER.DRAW FIRE OPERATOR Work Phone: Start: 02-16-2025 CT of abdominal [...] 01-06-2024 Hemoglobin A1c/Hemoglobin.total in Blood Jacqueline Candelario RECREATION THERAPY AIDES TEACHER.DRAW FIRE OPERATOR Work Phone: Start: 01-02-2024 Gluc bld gluc mntr d ev cleared fda spec home use Jemima Iyer RECREATION THERAPY AIDES TEACHER.DRAW FIRE OPERATOR Work Phone: Start: 01-02-2024 Urnls dip stick/tabl et rgnt auto w/o microscopy Jemima Iyer RECREATION THERAPY AIDES TEACHER.DRAW FIRE OPERATOR Work Phone: Start: 12-17-2023 CT angiography of [...] Gunter Work Phone: Start: 12-22-2020 MANUAL DIFFERENTIAL [facility] Jose Gunter Work Phone: Start: 12-22-2020 Gluc [...] Thromboplastin time partial plasma/whole blood [employer]pi [employer] Work Phone: Start: 12-21-2020 End: 12-22-2020 Gluc bld gluc mntr dev cleared fda spec home use [facility] Jose Gunter Work Phone: Start: 12-21-2020 Ecg routine ecg w/le ast 12 lds w/i&r Shilpi Sunita [employer] Work Phone: Start: 11-16-2013 Mammography Preet nuñez [...] Visit Annual PCP Team Chronic Disease Visit [facility] Start: 05-23-2026 Hepatitis B surface antibody level LDL Cholesterol [facility] Start: 04-18-2026 Annual PCP Team Chronic Disease Visit Annual PCP Team Chronic Disease Visit [facility] Start: 04-18-2026 Hepatitis B screening Urine Albumin:Creatinine Ratio [facility] Start: 03-22-2026 Annual PCP Team Chronic Disease Visit Annual PCP Team Chronic Disease Visit [facility] Start: 03-22-2026 Depression Screening Depression Screening [facility] Start: 02-17-2026 Annual PCP Team Chronic Disease Visit Annual PCP Team Chronic Disease Visit [facility] Start: 02-09-2026 BP Controlled (<130/80) BP Controlled (<130/80) [facility] Start: 12-14-2025 Annual PCP Team Chronic Disease Visit Annual PCP Team Chronic Disease Visit [facility] Start: 11-11-2025 BP Controlled (<130/80) BP Controlled (<130/80) [facility] Start: 10-07-2025 Annual PCP Team Chronic Disease Visit Annual PCP Team Chronic Disease Visit [facility] Start: 10-07-2025 BP Controlled (<130/80) BP Controlled (<130/80) [facility] Start: 10-07-2025 Covid-19 Vaccine () Covid-19 Vaccine () [facility] Comment on above: Postponed from 05/29/2024 (Declined at t his time) Start: 10-05-2025 Hepatitis B surface antibody level LDL Cholesterol [facility] Start: 09-05-2025 End: 09-05-2025 Patient encounter procedure 09/05/2025 11:20 AM EST Office Visit [facility] [place] [address] [facility] [place] [address] Preet Farrar, DO [address] [facility] [place] [address] yearly [facility] [place] Comment on above: yearly Start: 08-28-2025 End: 08-28-2025 Patient encounter procedure 08/28/2025 11:00 AM EST Office Visit [facility] [place] [address] [place] [address] Preet Farrar, DO [address] [facility] [place] [address] yearly [facility] [place] Comment on above: yearly Start: 08-23-2025 Hemoglobin A1c measurement HbA1C [facility] Start: 07-13-2025 Glaucoma screening Dilated Retinal Exam [facility] Start: 06-22-2025 Hemoglobin A1c measurement HbA1C [facility] Start: 06-14-2025 Annual PCP Team Chronic Disease Visit Annual PCP Team Chronic Disease Visit [facility] Start: 05-31-2025 End: 05-31-2025 Patient encounter procedure 05/31/2025 11:20 AM EDT Office Visit [facility] [place] [address] [place] [address] Preet Farrar DO [address] [place] [address] 3 month follow up [facility] [place] Comment on above: 3 month follow up Start: 05-29-2025 Influenza vaccination [facility] Start: 05-25-2025 [facility] Start: 05-25-2025 Annual PCP Team Chronic Disease Visit Annual PCP Team Chronic Disease Visit [facility] Start: 05-25-2025 BP Controlled (<130/80) BP Controlled (<130/80) [facility] Start: 05-17-2025 Hepatitis B surface antibody level LDL Cholesterol [facility] Start: 05-15-2025 End: 08-14-2025 Hemoglobin A1c in Blood HEMOGLOBIN A1C Lab Routine Uncontrolled type 2 diabetes mellitus with hyperglycemia (HCC) Expected: 05/15/2025, Expires: 08/14/2025 [facility] Work Phone: Comment on above: Expected: 05/15/2025, Expires: Start: 05-15-2025 End: 08-14-2025 Lipid 1996 panel - Serum or Plasma LIPID PANEL, FASTING Lab Routine Hyperlipidemia, mixed Expected: 05/15/2025, Expires: 08/14/2025 [facility] Comment on above: Expected: 05/15/2025, Expires: Start: 05-15-2025 End: 08-14-2025 Thyrotropin [Units/volume] in Serum or Plasma THYROID STIMULATING HORMONE Lab Routine Acquired hypothyroidism Expected: 05/15/2025, Expires: 08/14/2025 [facility] Comment on above: Expected: 05/15/2025, Expires: Start: 04-27-2025 End: 07-27-2025 Bacteria identified in Urine by Culture BACTERIAL CULTURE, URINE Microbiology Routine Other elevated white blood cell (WBC) count Expected: 04/27/2025, Expires: 07/27/2025 [facility] Comment on above: Expected: 04/27/2025, Expires: Start: 04-27-2025 End: 07-27-2025 CBC W Auto Differential panel - Blood COMPLETE BLOOD COUNT AND DIFFERENTIAL Lab Routine Other elevated white blood cell (WBC) count Expected: 04/27/2025, Expires: 07/27/2025 [facility] Comment on above: Expected: 04/27/2025, Expires: Start: 04-27-2025 End: 07-27-2025 Urinalysis complete panel - Urine URINALYSIS, WITH MICROSCOPIC Lab Routine Other elevated white blood cell (WBC) count Expected: 04/27/2025, Expires: 07/27/2025 [facility] Work Phone: Comment on above: Expected: 04/27/2025, Expires: Start: 04-18-2025 End: 04-18-2025 Patient encounter procedure 04/18/2025 8:20 AM EDT Office Visit [facility] [address] [place], [place] [id number] Liliana Bennett APRN.DRAW FIRE OPERATOR [address] [place], [place] [id number] Elevated Blood Sugar [facility] Comment on above: Elevated Blood Sugar Start: 04-15-2025 [facility] Start: 04-10-2025 End: 04-10-2025 Patient encounter procedure 04/10/2025 10:00 AM EDT Office Visit [facility] [address] [place] [address] Preet Farrar DO [address] [place] [address] 3 month follow up [facility] Comment on above: 3 month follow up Start: 04-04-2025 Hemoglobin A1c measurement HbA1C [facility] Start: 03-27-2025 Influenza vaccination Influenza Vaccine (#1) [place] J[facility] rodríguez Comment on above: Postponed from 05/29/2024 (Declined at t his time) Start: 03-22-2025 End: 03-22-2025 Patient encounter procedure 03/22/2025 2:00 PM EDT Office Visit [facility] [place] [address] [facility] [place] [address] Liliana Bennett APRN.DRAW FIRE OPERATOR [address] [facility] [place] [address] Follow up-nausea for 1 week and diabetes [facility] [place] Comment on above: Follow up-nausea for 1 week and diabetes Start: 03-21-2025 Annual PCP Team Chronic Disease Visit Annual PCP Team Chronic Disease Visit [facility] Start: 02-17-2025 End: 02-17-2025 Patient encounter procedure 02/17/2025 3:40 PM EDT Office Visit [facility] [address] [facility], [place] [id number] Preet Farrar DO [address] [place] [address] 3 month follow up [facility] Comment on above: 3 month follow up Start: 02-14-2025 End: 02-14-2025 Nursing evaluation of patient and report 02/14/2025 1:00 PM EDT Nurse Visit Endocrinology [address] [place], [place] [id number] Rodrigo Holguin, RN [address] [address] Type 2 diabetes mellitus with other circulatory [...] Visit Annual PCP Team Chronic Disease Visit [facility] Start: 01-26-2025 BP Controlled (<130/80) BP Controlled (<130/80) [facility] Start: 01-05-2025 Annual PCP Team Chronic Disease Visit Annual PCP Team Chronic Disease Visit [facility] Start: 12-28-2024 Introduction of urinary catheter [facility] Start: 12-28-2024 End: 12-28-2024 [facility] Start: 12-28-2024 Patient discharge [facility] Start: 12-28-2024 Removal of urinary catheter [facility] Start: 12-27-2024 Following clinical pathway protocol [facility] Start: 12-27-2024 Consultation [facility] Start: 12-27-2024 Ambulation therapy management [facility] Start: 12-27-2024 Application of intermittent pneumatic compression device [facility] Start: 12-27-2024 Elevation of head of bed [facility] Start: 12-27-2024 Following clinical pathway protocol [facility] Start: 12-27-2024 Incentive spirometry [facility] Start: 12-27-2024 Measuring intake and output [facility] Start: 12-27-2024 Notification of physician [facility] Start: 12-27-2024 Oxygen therapy [facility] Start: 12-27-2024 Procedures relating to eating and drinking [facility] Start: 12-27-2024 Taking patient vital signs [facility] Start: 12-27-2024 [facility] Start: 12-27-2024 Introduction of urinary catheter [facility] Start: 12-27-2024 Admission procedure [facility] Start: 12-27-2024 [facility] Start: 12-14-2024 End: 12-14-2024 Patient encounter procedure 12/14/2024 11:00 AM EDT Office Visit [facility] [place] [address] [place] [address] Preet Farrar DO [address] [place] [address] Pre op Exam [facility] [place] Comment on above: Pre op Exam Start: 12-08-2024 Annual PCP Team Chronic Disease Visit Annual PCP Team Chronic Disease Visit [facility] Start: 12-08-2024 Glaucoma screening Dilated Retinal Exam [facility] Start: 11-19-2024 Annual PCP Team Chronic Disease Visit Annual PCP Team Chronic Disease Visit [facility] Start: 11-19-2024 BP Controlled (<130/80) BP Controlled (<130/80) [facility] Start: 11-17-2024 Hemoglobin A1c measurement HbA1C [facility] Start: 11-13-2024 Annual PCP Team Chronic Disease Visit Annual PCP Team Chronic Disease Visit [facility] Start: 11-13-2024 Covid-19 Vaccine (#1) Covid-19 Vaccine (#1) [facility] Comment on above: Postponed from 03/03/1956 (Declined at t his time) Start: 11-13-2024 Covid-19 Vaccine ( season) Covid-19 Vaccine () [facility] Comment on above: Postponed from 05/29/2023 (Declined at t his time) Start: 11-13-2024 Hepatitis B screening Urine Albumin:Creatinine Ratio [facility] Start: 11-13-2024 Hepatitis B surface antibody level LDL Cholesterol [facility] Start: 11-13-2024 Pneumococcal Vaccine: 50+ (1 of 2 - PCV) Pneumococcal Vaccine: 50+ (1 of 2 - PCV) [facility] Comment on above: Postponed from 1974 (Declined at t his time) Start: 11-13-2024 Pneumococcal Vaccine: 65+ (1 of 2 - PCV) Pneumococcal Vaccine: 65+ (1 of 2 - PCV) [facility] Comment on above: Postponed from 1961 (Declined at t his time) Start: 11-13-2024 Shingrix Vaccine (1 of 2) Shingrix Vaccine (1 of 2) [facility] Comment on above: Postponed from 2005 (Declined at t his time) Start: 11-13-2024 Urine microalbumin profile DTaP,Tdap,Td Vaccine (1 - Tdap) [facility] Comment on above: Postponed from 1974 (Declined at t his time) Start: 11-11-2024 End: 02-10-2025 Thyrotropin [Units/volume] in Serum or Plasma THYROID STIMULATING HORMONE Lab Routine Abnormal results of thyroid function studies Expected: 11/11/2024, Expires: 02/10/2025 [facility] Work Phone: Comment on above: Expected: 11/11/2024, Expires: Start: 11-11-2024 End: 02-10-2025 THYROXIN, FR BY EQ DIALYSIS/HPLC-TNDMMS THYROXIN, FR BY EQ DIALYSIS/HPLC-TNDMMS Lab Routine Abnormal results of thyroid function studies Expected: 11/11/2024, Expires: 02/10/2025 [facility] Comment on above: Expected: 11/11/2024, Expires: Start: 11-11-2024 End: 11-11-2024 Patient encounter procedure 11/11/2024 9:40 AM EST Office Visit Endocrinology [address] [place], [place] [id number] Bean Isaac MD [address] [facility] [place], [place] [id number] 3 month follow up Endocrinology Comment on above: 3 month follow up Start: 11-01-2024 End: 11-01-2024 Patient encounter procedure 11/01/2024 1:00 PM EST Office Visit Cardiology [address] [address] Torri Hunt MD [address] [place] [address] Rescheduled from 07/25 Cardiology Comment on above: Rescheduled from 07/25 Start: 10-29-2024 Annual PCP Team Chronic Disease Visit Annual PCP Team Chronic Disease Visit [facility] Start: 10-07-2024 End: 10-07-2024 Patient encounter procedure [...] of insulin (HCC) Expected: 10/04/2024, Expires: 01/03/2025 [facility] Comment on above: Expected: 10/04/2024, Expires: Start: 10-04-2024 End: 01-03-2025 Comprehensive metabolic 2000 panel - Serum or Plasma COMPREHENSIVE METABOLIC PANEL Lab Routine Hyperlipidemia, mixed Expected: 10/04/2024, Expires: 01/03/2025 [facility] Comment on above: Expected: 10/04/2024, Expires: Start: 10-04-2024 End: 01-03-2025 Hemoglobin A1c in Blood HEMOGLOBIN A1C Lab Routine 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, without long-term current use of insulin (HCC) Expected: 10/04/2024, Expires: 01/03/2025 [facility] Comment on above: Expected: 10/04/2024, Expires: Start: 10-04-2024 End: 01-03-2025 Lipid 1996 panel - Serum or Plasma LIPID PANEL BASIC Lab Routine Hyperlipidemia, mixed Expected: 10/04/2024, Expires: 01/03/2025 [facility] Comment on above: Expected: 10/04/2024, Expires: Start: 10-04-2024 End: 01-03-2025 Thyrotropin [Units/volume] in Serum or Plasma THYROID STIMULATING HORMONE Lab Routine Hypothyroidism, unspecified type Expected: 10/04/2024, Expires: 01/03/2025 [facility] Work Phone: Comment on above: Expected: 10/04/2024, Expires: Start: 10-04-2024 End: 01-03-2025 Thyroxine (T4) free [Mass/volume] in Serum or Plasma T4 FREE/FREE THYROXINE Lab Routine Hypothyroidism, unspecified type Expected: 10/04/2024, Expires: 01/03/2025 [facility] Comment on above: Expected: 10/04/2024, Expires: Start: 10-04-2024 End: 01-03-2025 Triiodothyronine (T3) Free [Mass/volume] in Serum or Plasma T3, FREE Lab Routine Hypothyroidism, unspecified type Expected: 10/04/2024, Expires: 01/03/2025 [facility] Comment on above: Expected: 10/04/2024, Expires: Start: 09-14-2024 RSV Vaccine (1 - 1-dose 60+ series) RSV Vaccine (1 - 1-dose 60+ series) [facility] Comment on above: Postponed from 2015 (Declined at t his time) Start: 09-14-2024 RSV Vaccine (1 - Risk 60-74 years 1-dose series) RSV Vaccine (1 - Risk 60-74 years 1-dose series) [facility] Comment on above: Postponed from 2015 (Declined at t his time) Start: 08-11-2024 End: 11-10-2024 Cortisol [Mass/volume] in Serum or Plasma --post dose dexamethasone CORTISOL SUPRES POST Lab Routine Type 2 diabetes mellitus with other circulatory complication, with long-term current use of insulin (HCC) Expected: 08/11/2024, Expires: 11/10/2024 [facility] Comment on above: Expected: 08/11/2024, Expires: Start: 08-11-2024 End: 11-10-2024 DEXAMETHASONE DEXAMETHASONE Lab Routine Type 2 diabetes mellitus with other circulatory complication, with long-term current use of insulin (HCC) Expected: 08/11/2024, Expires: 11/10/2024 [facility] Work Phone: Comment on above: Expected: 08/11/2024, Expires: Start: 08-11-2024 End: 08-11-2024 Patient encounter procedure 08/11/2024 9:40 AM EST Office Visit Endocrinology [address] [place] [id number] Bean Isaac MD [address] [place] [id number] 3 MTH F/U Endocrinology Comment on above: 3 MTH F/U Start: 07-25-2024 End: 07-25-2024 Patient encounter procedure 07/25/2024 10:20 AM EDT Office Visit Cardiology [address] [place] [id number] Jose Lay MD [address] [facility], [address] [place], [place] [id number] Uncontrolled type 2 diabetes mellitus with hyperglycemia (HCC) [E11.65] Cardiology Comment on above: Uncontrolled type 2 diabetes mellitus wi th hyperglycemia (HCC) [E11.65] Start: 07-15-2024 Annual PCP Team Chronic Disease Visit Annual PCP Team Chronic Disease Visit [facility] Start: 07-15-2024 BP Controlled (<130/80) BP Controlled (<130/80) [facility] in Start: 07-15-2024 Hepatitis B Vaccine (1 of 3 - Risk 3-dose series) Hepatitis B Vaccine (1 of 3 - Risk 3-dose series) [facility] Comment on above: Postponed from 2015 (Declined at t his time) Start: 07-14-2024 End: 10-13-2024 Thyrotropin [Units/volume] in Serum or Plasma THYROID STIMULATING HORMONE Lab Routine Acquired hypothyroidism Expected: 07/14/2024, Expires: 10/13/2024 [facility] Work Phone: Comment on above: Expected: 07/14/2024, Expires: Start: 07-14-2024 End: 10-13-2024 Thyroxine (T4) free [Mass/volume] in Serum or Plasma T4 FREE/FREE THYROXINE Lab Routine Acquired hypothyroidism Expected: 07/14/2024, Expires: 10/13/2024 [facility] Comment on above: Expected: 07/14/2024, Expires: Start: 07-14-2024 End: 10-13-2024 Triiodothyronine (T3) Free [Mass/volume] in Serum or Plasma T3, FREE Lab Routine Acquired hypothyroidism Expected: 07/14/2024, Expires: 10/13/2024 [facility] Comment on above: Expected: 07/14/2024, Expires: Start: 07-07-2024 Hemoglobin A1c measurement HbA1C [facility] Start: 06-27-2024 End: 06-27-2024 Patient encounter procedure 06/27/2024 9:20 AM EDT Office Visit Family Medicine [facility] [address] [facility] [place] [id number] Preet Farrar DO [address] [place] [id number] 2-3 month follow up [facility] Medicine [facility] Comment on above: 2-3 month follow up Start: 06-26-2024 Annual PCP Team Chronic Disease Visit Annual PCP Team Chronic Disease Visit [facility] Start: 06-26-2024 BP Controlled (<130/80) BP Controlled (<130/80) [facility] Start: 06-19-2024 Annual PCP Team Chronic Disease Visit Annual PCP Team Chronic Disease Visit [facility] Start: 06-19-2024 BP Controlled (<130/80) BP Controlled (<130/80) [facility] Start: 06-15-2024 Hepatitis B surface antibody level LDL Cholesterol [facility] Start: 05-29-2024 Covid-19 Vaccine ( season) Covid-19 Vaccine ( season) [facility] Start: 05-29-2024 Covid-19 Vaccine () Covid-19 Vaccine () [facility] Start: 05-29-2024 Influenza vaccination [facility] Start: 05-25-2024 End: 05-25-2024 Patient encounter procedure 05/25/2024 2:40 PM EDT Office Visit Family Medicine [place] [address] [place] [id number] [employer]ina arreguin APRN.[employer] [address] [place] [address] [facility] ER 05/22/24 Left side pain Family Medicine [facility] Comment on above: [facility] ER 05/22/24 Left side pain Start: 05-16-2024 Hemoglobin A1c measurement HbA1C [facility] Start: 05-13-2024 Hemoglobin A1c measurement HbA1C [facility] Start: 05-10-2024 End: 05-10-2024 Patient encounter procedure 05/10/2024 1:40 PM EDT Office Visit Endocrinology [address] [place] [id number] Bean Isaac MD [address] [place] [address] Uncontrolled type 2 diabetes mellitus with hyperglycemia (HCC) [E11.65] Endocrinology Comment on above: Uncontrolled type 2 diabetes mellitus wi th hyperglycemia (HCC) [E11.65] Start: 04-30-2024 ANNUAL PCP TEAM CHRONIC DISEASE VISIT ANNUAL PCP TEAM CHRONIC DISEASE VISIT [facility] Start: 03-27-2024 [facility]enza [facility]: Postp[facility] from 05/29/2023 (Declined at t his time) Start: 03-21-2024 End: 03-21-2024 Patient encounter procedure [facility] Comment on above: medicare wellness TCM. [facility] hosp f/u d/ c 03-09-24. Gastroenteritis. Hyperglycemia. Start: 03-18-2024 ANNUAL PCP TEAM CHRONIC DISEASE VISIT ANNUAL PCP TEAM CHRONIC DISEASE VISIT [facility] Start: 03-10-2024 End: 06-09-2024 CBC panel - Blood by Automated count CBC Lab Routine Uncontrolled type 2 diabetes mellitus with hyperglycemia (HCC) Expected: 03/10/2024, Expires: 06/09/2024 [facility] Work Phone: Comment on above: Expected: 03/10/2024, Expires: 4 Start: 03-10-2024 End: 06-09-2024 Comprehensive metabolic 2000 panel - Serum or Plasma COMP METABOLIC PANEL Lab Routine Uncontrolled type 2 diabetes mellitus with hyperglycemia (HCC) Expected: 03/10/2024, Expires: 06/09/2024 [facility] Work Phone: Comment on above: Expected: 03/10/2024, Expires: 4 Start: 03-10-2024 End: 06-09-2024 Hemoglobin A1c in Blood HGB A1C Lab Routine Uncontrolled type 2 diabetes mellitus with hyperglycemia (HCC) Expected: 03/10/2024, Expires: 06/09/2024 [facility] Work Phone: Comment on above: Expected: 03/10/2024, Expires: 4 Start: 03-10-2024 Hepatitis B surface antibody level LDL CHOLESTEROL [facility] Start: 03-10-2024 End: 06-09-2024 Lipid 1996 panel - Serum or Plasma LIPID PANEL BASIC Lab Routine Hyperlipidemia, mixed Expected: 03/10/2024, Expires: 06/09/2024 [facility] Work Phone: Comment on above: Expected: 03/10/2024, Expires: Start: 03-10-2024 End: 06-09-2024 Magnesium [Mass/volume] in Serum or Plasma MAGNESIUM Lab Routine Poor sleep Expected: 03/10/2024, Expires: 06/09/2024 [facility] Work Phone: Comment on above: Expected: 03/10/2024, Expires: Start: 03-10-2024 End: 06-09-2024 Thyrotropin [Units/volume] in Serum or Plasma TSH BLD Lab Routine Uncontrolled type 2 diabetes mellitus with hyperglycemia (HCC) Expected: 03/10/2024, Expires: 06/09/2024 [facility] Work Phone: Comment on above: Expected: 03/10/2024, Expires: Start: 03-09-2024 Hemoglobin A1c measurement HbA1C [facility] Start: 02-17-2024 Glaucoma screening Dilated Retinal Exam [facility] Start: 02-17-2024 Hepatitis C antibody, confirmatory test DILATED RETINAL EXAM [facility] Start: 12-14-2023 Hemoglobin A1c/Hemoglobin.total in Blood HbA1C [facility] Start: 12-12-2023 End: 03-12-2024 ALBUMIN/CREAT RATIO RND UR ALBUMIN/CREAT RATIO RND UR Lab Routine Uncontrolled type 2 diabetes mellitus with hyperglycemia (HCC) Expected: 12/12/2023, Expires: 03/12/2024 [facility] Work Phone: Comment on above: Expected: 12/12/2023, Expires: Start: 12-12-2023 End: 03-12-2024 Comprehensive metabolic 2000 panel - Serum or Plasma COMP METABOLIC PANEL Lab Routine Essential hypertension, benign Expected: 12/12/2023, Expires: 03/12/2024 [facility] Work Phone: Comment on above: Expected: 12/12/2023, Expires: 4 Start: 12-12-2023 End: 03-12-2024 Lipid 1996 panel - Serum or Plasma LIPID PANEL BASIC Lab Routine Essential hypertension, benign Expected: 12/12/2023, Expires: 03/12/2024 [facility] Work Phone: Comment on above: Expected: 12/12/2023, Expires: Start: 12-11-2023 3 comp foot exam completed DIABETIC FOOT EXAM [facility] Start: 12-11-2023 ANNUAL PCP TEAM CHRONIC DISEASE VISIT ANNUAL PCP TEAM CHRONIC DISEASE VISIT [facility] Start: 12-11-2023 BP CONTROLLED (<130/80) BP CONTROLLED (<130/80) [facility] Start: 12-11-2023 Diabetic foot examination Diabetic Foot Exam [facility] Start: 12-03-2023 Hepatitis B surface antibody level LDL CHOLESTEROL [facility] Start: 11-13-2023 End: 02-12-2024 Thyrotropin [Units/volume] in Serum or Plasma [facility] Work Phone: Comment on above: Expected: 11/13/2023, Expires: 4 Start: 11-13-2023 End: 02-12-2024 Thyroxine (T4) free [Mass/volume] in Serum or Plasma [facility] Work Phone: Comment on above: Expected: 11/13/2023, Expires: 4 Start: 11-13-2023 End: 02-12-2024 Triiodothyronine (T3) [Mass/volume] in Serum or Plasma [facility] Work Phone: Comment on above: Expected: 11/13/2023, Expires: 4 Start: 11-05-2023 ANNUAL PCP TEAM CHRONIC DISEASE VISIT ANNUAL PCP TEAM CHRONIC DISEASE VISIT [facility] Start: 11-05-2023 BP CONTROLLED (<130/80) BP CONTROLLED (<130/80) [facility] Start: 11-05-2023 COVID-19 VACCINE (#1) COVID-19 VACCINE (#1) [facility] Comment on above: Postponed from 03/03/1956 (Declined at t his time) Start: 11-05-2023 Hepatitis B screening URINE ALBUMIN:CREATININE RATIO [facility] Start: 11-05-2023 Pneumococcal Vaccine: 65+ (1 - PCV) Pneumococcal Vaccine: 65+ (1 - PCV) [facility] Comment on above: Postponed from 1961 (Declined at t his time) Start: 11-05-2023 Pneumococcal Vaccine: 65+ (1 of 2 - PCV) Pneumococcal Vaccine: 65+ (1 of 2 - PCV) [facility] Comment on above: Postponed from 1961 (Declined at t his time) Start: 11-05-2023 PNEUMOCOCCAL: 65+ (1 - PCV) PNEUMOCOCCAL: 65+ (1 - PCV) [facility] Comment on above: Postponed from 1961 (Declined at t his time) Start: 11-05-2023 SHINGRIX VACCINE (1 of 2) SHINGRIX VACCINE (1 of 2) [facility] Comment on above: Postponed from 2005 (Declined at t his time) Start: 11-05-2023 Urine microalbumin profile [facility] Comment on above: Postponed from 1974 (Declined at t his time) Start: 09-28-2023 Behavioral Health Screening Behavioral Health Screening [facility] Start: 09-28-2023 Depression Assessment Depression Assessment [facility] Start: 09-28-2023 zzBehavioral Health Screening zBehavioral Health Screening [facility] Start: 09-27-2023 DEPRESSION ASSESSMENT DEPRESSION ASSESSMENT [facility] Comment on above: Postponed from 09/28/2022 (Declined at t his time) Start: 09-18-2023 End: 11-18-2023 Cobalamin (Vitamin B12) [Mass/volume] in Serum or Plasma VITAMIN B12 BLOOD Lab Routine Vitamin B12 deficiency Expected: 09/18/2023, Expires: 11/18/2023 [facility] Work Phone: Comment on above: Expected: 09/18/2023, Expires: Start: 09-18-2023 End: 11-18-2023 Hemoglobin A1c in Blood HGB A1C Lab Routine Uncontrolled type 2 diabetes mellitus with hyperglycemia (HCC) Expected: 09/18/2023, Expires: 11/18/2023 [facility] Work Phone: Comment on above: Expected: 09/18/2023, Expires: 4 Start: 09-18-2023 End: 11-18-2023 Thyrotropin [Units/volume] in Serum or Plasma TSH BLD Lab Routine Acquired hypothyroidism Expected: 09/18/2023, Expires: 11/18/2023 [facility] Work Phone: Comment on above: Expected: 09/18/2023, Expires: 4 Start: 09-18-2023 End: 11-18-2023 Thyroxine (T4) free [Mass/volume] in Serum or Plasma T4 FREE/FREE THYROX Lab Routine Acquired hypothyroidism Expected: 09/18/2023, Expires: 11/18/2023 [facility] Work Phone: Comment on above: Expected: 09/18/2023, Expires: 4 Start: 09-18-2023 End: 11-18-2023 Triiodothyronine (T3) [Mass/volume] in Serum or Plasma T3 BLD Lab Routine Acquired hypothyroidism Expected: 09/18/2023, Expires: 11/18/2023 [facility] Work Phone: Comment on above: Expected: 09/18/2023, Expires: 4 Start: 09-10-2023 ANNUAL PCP TEAM CHRONIC DISEASE VISIT ANNUAL PCP TEAM CHRONIC DISEASE VISIT [facility] Start: 09-09-2023 Colonoscopy COLONOSCOPY [facility] Start: 09-09-2023 COLORECTAL CANCER SCREENING COLORECTAL CANCER SCREENING [facility] Start: 09-09-2023 Hemoglobin A1c/Hemoglobin.total in Blood HBA1C [facility] Start: 09-09-2023 Screening for malignant neoplasm of colon [facility] Start: 09-08-2023 Hepatitis B surface antibody level LDL CHOLESTEROL [facility] Start: 07-28-2023 End: 10-27-2023 POTASSIUM BLD POTASSIUM BLD Lab Routine Hypokalemia Expected: 07/28/2023, Expires: 10/27/2023 [facility] Work Phone: Comment on above: Expected: 07/28/2023, Expires: 4 Start: 07-03-2023 Patient discharge [facility] Start: 07-01-2023 Following clinical pathway protocol [facility] Start: 07-01-2023 Assessment of risk of venous thromboembolism [facility] Start: 07-01-2023 Care regimes management [facility] Start: 07-01-2023 Fall prevention [facility] Start: 07-01-2023 Incentive spirometry [facility] Start: 07-01-2023 Inhalation therapy procedure [facility] Start: 07-01-2023 Insertion of catheter into peripheral vein [facility] Start: 07-01-2023 Introduction of urinary catheter [facility] Start: 07-01-2023 Measuring intake and output [facility] Start: 07-01-2023 Notification of physician [facility] Start: 07-01-2023 Oxygen therapy [facility] Start: 07-01-2023 Providing care according to standard [facility] Start: 07-01-2023 Provision of activity privileges [facility] Start: 07-01-2023 Referral to occupational therapist [facility] Start: 07-01-2023 Referral to service [facility] Start: 07-01-2023 [facility] Start: 07-01-2023 Admission procedure [facility] Start: 06-18-2023 End: 08-18-2023 Comprehensive metabolic 2000 panel - Serum or Plasma COMP METABOLIC PANEL Lab Routine Uncontrolled type 2 diabetes mellitus with hyperglycemia (HCC) Expected: 06/18/2023, Expires: 08/18/2023 [facility] Work Phone: Comment on above: Expected: 06/18/2023, Expires: 3 Start: 06-18-2023 End: 08-18-2023 Hemoglobin A1c in Blood HGB A1C Lab Routine Uncontrolled type 2 diabetes mellitus with hyperglycemia (HCC) Expected: 06/18/2023, Expires: 08/18/2023 [facility] Work Phone: Comment on above: Expected: 06/18/2023, Expires: 3 Start: 06-18-2023 End: 08-18-2023 Lipid 1996 panel - Serum or Plasma LIPID PANEL BASIC Lab Routine Dyslipidemia Expected: 06/18/2023, Expires: 08/18/2023 [facility] Work Phone: Comment on above: Expected: 06/18/2023, Expires: 3 Start: 06-18-2023 End: 08-18-2023 Thyrotropin [Units/volume] in Serum or Plasma TSH BLD Lab Routine Acquired hypothyroidism Expected: 06/18/2023, Expires: 08/18/2023 [facility] Work Phone: Comment on above: Expected: 06/18/2023, Expires: 3 Start: 06-18-2023 End: 08-18-2023 Thyroxine (T4) free [Mass/volume] in Serum or Plasma T4 FREE/FREE THYROX Lab Routine Acquired hypothyroidism Expected: 06/18/2023, Expires: 08/18/2023 [facility] Work Phone: Comment on above: Expected: 06/18/2023, Expires: 3 Start: 06-04-2023 Hemoglobin A1c/Hemoglobin.total in Blood HBA1C [facility] Start: 05-29-2023 Influenza vaccination [facility] Start: 03-27-2023 Influenza vaccination INFLUENZA (#1) [facility] Comment on above: Postponed from 05/29/2022 (Declined at t his time) Start: 03-12-2023 End: 05-12-2023 25-hydroxyvitamin D3 [Mass/volume] in Serum or Plasma VITAMIN D 25 HYDROXY Lab Routine Vitamin D deficiency Expected: 03/12/2023, Expires: 05/12/2023 [facility] Work Phone: Comment on above: Expected: 03/12/2023, Expires: 3 Start: 03-12-2023 End: 05-12-2023 CBC panel - Blood by Automated count CBC Lab Routine Uncontrolled type 2 diabetes mellitus with hyperglycemia (HCC) Expected: 03/12/2023, Expires: 05/12/2023 [facility] Work Phone: Comment on above: Expected: 03/12/2023, Expires: 3 Start: 03-12-2023 End: 05-12-2023 Comprehensive metabolic 2000 panel - Serum or Plasma COMP METABOLIC PANEL Lab Routine Uncontrolled type 2 diabetes mellitus with hyperglycemia (HCC) Expected: 03/12/2023, Expires: 05/12/2023 [facility] Work Phone: Comment on above: Expected: 03/12/2023, Expires: 3 Start: 03-12-2023 End: 05-12-2023 Hemoglobin A1c in Blood HGB A1C Lab Routine Uncontrolled type 2 diabetes mellitus with hyperglycemia (HCC) Expected: 03/12/2023, Expires: 05/12/2023 [facility] Work Phone: Comment on above: Expected: 03/12/2023, Expires: 3 Start: 03-12-2023 End: 05-12-2023 Lipid 1996 panel - Serum or Plasma LIPID PANEL BASIC Lab Routine Uncontrolled type 2 diabetes mellitus with hyperglycemia (HCC) Dyslipidemia Expected: 03/12/2023, Expires: 05/12/2023 [facility] Work Phone: Comment on above: Expected: 03/12/2023, Expires: 3 Start: 03-12-2023 End: 05-12-2023 Thyrotropin [Units/volume] in Serum or Plasma TSH BLD Lab Routine Acquired hypothyroidism Expected: 03/12/2023, Expires: 05/12/2023 [facility] Work Phone: Comment on above: Expected: 03/12/2023, Expires: 3 Start: 03-09-2023 Hemoglobin A1c/Hemoglobin.total in Blood HBA1C [facility] Start: 02-19-2023 ANNUAL PCP TEAM CHRONIC DISEASE VISIT ANNUAL PCP TEAM CHRONIC DISEASE VISIT [facility] Start: 01-31-2023 ANNUAL PCP TEAM CHRONIC DISEASE VISIT ANNUAL PCP TEAM CHRONIC DISEASE VISIT [facility] Start: 11-13-2022 Hepatitis B screening URINE ALBUMIN:CREATININE RATIO [facility] Start: 11-11-2022 Blood chemistry [facility] Start: 11-10-2022 Blood chemistry [facility] Start: 11-09-2022 Blood chemistry [facility] Start: 11-08-2022 Blood chemistry [facility] Start: 11-07-2022 Blood chemistry [facility] Start: 11-06-2022 Blood chemistry [facility] Start: 11-05-2022 Blood chemistry [facility] Start: 11-04-2022 Patient discharge [facility] Start: 11-03-2022 Referral to vascular surgeon [facility] Start: 11-02-2022 Assessment of risk of venous thromboembolism [facility] Start: 11-02-2022 Cardiac monitoring [facility] Start: 11-02-2022 Care regimes management [facility] Start: 11-02-2022 Catheterization of vein [facility] Start: 11-02-2022 Elevation of head of bed [facility] Start: 11-02-2022 Exercises [facility] Start: 11-02-2022 Implementation of planned interventions [facility] Start: 11-02-2022 Insertion of catheter into peripheral vein [facility] Start: 11-02-2022 Measuring intake and output [facility] Start: 11-02-2022 Notification of physician [facility] Start: 11-02-2022 Providing care according to standard [facility] Start: 11-02-2022 Provision of activity privileges [facility] Start: 11-02-2022 Referral to occupational therapist [facility] Start: 11-02-2022 Referral to service [facility] Start: 11-02-2022 Tobacco use cessation education [facility] Start: 11-02-2022 [facility] Start: 11-02-2022 Verification routine [facility] Start: 11-02-2022 Admission procedure [facility] Start: 11-02-2022 Following clinical pathway protocol [facility] Start: 10-23-2022 3 comp foot exam completed DIABETIC FOOT EXAM [facility] Start: 10-23-2022 ANNUAL PCP TEAM CHRONIC DISEASE VISIT ANNUAL PCP TEAM CHRONIC DISEASE VISIT [facility] Start: 10-23-2022 BP CONTROLLED (<130/80) BP CONTROLLED (<130/80) [facility] Start: 10-23-2022 COVID-19 VACCINE (#1) COVID-19 VACCINE (#1) [facility] Comment on above: Postponed from 1960 (Declined at t his time) Postponed from 03/03 (Declined at this time) Start: 10-23-2022 COVID-19 VACCINE (1) COVID-19 VACCINE (1) [facility] Comment on above: Postponed from 1960 (Declined at t his time) Start: 09-28-2022 ADVANCE DIRECTIVE DISCUSSION ADVANCE DIRECTIVE DISCUSSION [facility] Start: 09-28-2022 DEPRESSION ASSESSMENT DEPRESSION ASSESSMENT [facility] Start: 09-03-2022 End: 11-03-2022 25-hydroxyvitamin D3 [Mass/volume] in Serum or Plasma VITAMIN D 25 HYDROXY Lab Routine Vitamin D deficiency Expected: 09/03/2022, Expires: 11/03/2022 [facility] Work Phone: Comment on above: Expected: 09/03/2022, Expires: 3 Start: 09-03-2022 End: 11-03-2022 CBC W Auto Differential panel - Blood CBC + DIFF Lab Routine Dyslipidemia Expected: 09/03/2022, Expires: 11/03/2022 [facility] Work Phone: Comment on above: Expected: 09/03/2022, Expires: 3 Start: 09-03-2022 End: 11-03-2022 Comprehensive metabolic 2000 panel - Serum or Plasma COMP METABOLIC PANEL Lab Routine Dyslipidemia Expected: 09/03/2022, Expires: 11/03/2022 [facility] Work Phone: Comment on above: Expected: 09/03/2022, Expires: 3 Start: 09-03-2022 End: 11-03-2022 Hemoglobin A1c in Blood HGB A1C Lab Routine Uncontrolled type 2 diabetes mellitus with hyperglycemia (HCC) Expected: 09/03/2022, Expires: 11/03/2022 [facility] Work Phone: Comment on above: Expected: 09/03/2022, Expires: 3 Start: 09-03-2022 End: 11-03-2022 Iron and Iron binding capacity panel - Serum or Plasma IRON + TIBC Lab Routine Iron deficiency anemia, unspecified iron deficiency anemia type Expected: 09/03/2022, Expires: 11/03/2022 [facility] Work Phone: Comment on above: Expected: 09/03/2022, Expires: 3 Start: 09-03-2022 End: 11-03-2022 Lipid 1996 panel - Serum or Plasma LIPID PANEL BASIC Lab Routine Dyslipidemia Expected: 09/03/2022, Expires: 11/03/2022 [facility] Work Phone: Comment on above: Expected: 09/03/2022, Expires: 3 Start: 08-22-2022 Hemoglobin A1c/Hemoglobin.total in Blood HBA1C [facility] Start: 07-10-2022 Hepatitis C antibody, confirmatory test DILATED RETINAL EXAM [facility] Start: 05-29-2022 Influenza vaccination [facility] Start: 05-22-2022 End: 07-22-2022 Hemoglobin A1c/Hemoglobin.total in Blood HGB A1C Lab Routine Uncontrolled type 2 diabetes mellitus with hyperglycemia (HCC) Expected: 05/22/2022 (Approximate), Expires: 07/22/2022 [facility] Work Phone: Comment on above: Expected: 05/22/2022 (Approximate), Expi res: 07/22/2022 Start: 05-13-2022 Hemoglobin A1c/Hemoglobin.total in Blood HBA1C [facility] Start: 04-24-2022 Adult depression screening assessment DEPRESSION SCREENING [facility] Start: 04-16-2022 Hepatitis B surface antibody level LDL CHOLESTEROL [facility] Start: 02-21-2022 End: 04-23-2022 ALDOSTERONE/DIRECT RENIN RATIO [facility] [facility] Work Phone: Comment on above: Expected: 02/21/2022, Expires: 2 Start: 02-19-2022 End: 04-21-2022 ALDOSTERONE/DIRECT RENIN RATIO [facility] Work Phone: Comment on above: Expected: 02/19/2022, Expires: 2 Start: 02-19-2022 End: 04-21-2022 Comprehensive metabolic 2000 panel - Serum or Plasma [facility] Work Phone: Comment on above: Expected: 02/19/2022, Expires: 2 Start: 02-19-2022 End: 04-21-2022 Cortisol [Mass/volume] in Serum or Plasma [facility] Work Phone: Comment on above: Expected: 02/19/2022, Expires: 2 Start: 02-19-2022 End: 04-21-2022 Urinalysis complete panel - Urine [facility] Work Phone: Comment on above: Expected: 02/19/2022, Expires: 2 Start: 12-22-2021 HbA1c (Bld) [Mass fraction] A1C test (Diabetic or Prediabetic) [employer] Work Phone: Start: 09-28-2021 ADVANCE DIRECTIVE DISCUSSION ADVANCE DIRECTIVE DISCUSSION [facility] Start: 09-28-2021 DEPRESSION ASSESSMENT DEPRESSION ASSESSMENT [facility] Start: 05-29-2021 Influenza vaccination Flu vaccine (Season Ended) [employer] Work Phone: Start: 12-22-2020 Annual Wellness Visit (AWV) Annual Wellness Visit (AWV) [employer] Work Phone: Start: 12-09-2020 Screening for malignant neoplasm of cervix Cervical Cancer Screening [facility] Start: 2020 Pneumococcal 65+ years Vaccine (1 of 1 - PPSV23) Pneumococcal 65+ years Vaccine (1 of 1 - PPSV23) [employer] Work Phone: Start: 2020 PNEUMOVAX AGE 65 AND OVER WITH 5YR LOOKBACK (#1) PNEUMOVAX AGE 65 AND OVER WITH 5YR LOOKBACK (#1) [facility] Start: 2015 Hepatitis B Vaccine (1 of 3 - Risk 3-dose series) Hepatitis B Vaccine (1 of 3 - Risk 3-dose series) [facility] Start: 2015 RSV Vaccine (1 - 1-dose 60+ series) RSV Vaccine (1 - 1-dose 60+ series) [facility] Start: 2015 RSV Vaccine (1 - Risk 60-74 years 1-dose series) RSV Vaccine (1 - Risk 60-74 years 1-dose series) [facility] Start: 11-16-2014 Mammography [facility] Start: 11-16-2014 Screening for malignant neoplasm of breast Mammogram Screening [facility] Start: 2010 Screening for malignant neoplasm of [...] of 2) SHINGRIX VACCINE (1 of 2) [facility] Start: 2000 COLOGUARD (FIT-DNA) COLOGUARD (FIT-DNA) [facility] Start: [address] COLONOGRAPHY [facility] Start: 2000 FECAL OCCULT BLOOD FECAL OCCULT BLOOD [facility] Start: 2000 Screening for malignant neoplasm of colon [facility] Start: 2000 SIGMOIDOSCOPY SIGMOIDOSCOPY [facility] Start: 1976 Screening for malignant neoplasm of cervix Cervical cancer screen [facility] Work Phone: Start: 1974 DTaP/Tdap/Td vaccine (1 - Tdap) DTaP/Tdap/Td vaccine (1 - Tdap) [facility] Work Phone: Start: 1974 Hepatitis A Vaccine (1 of 2 - Risk 2-dose series) Hepatitis A Vaccine (1 of 2 - Risk 2-dose series) [facility] Start: 1974 Pneumococcal Vaccine: 50+ (1 of 2 - PCV) Pneumococcal Vaccine: 50+ (1 of 2 - PCV) [facility] Start: 1974 Urine microalbumin profile [facility] Start: 1973 Depression Screening Depression Screening [facility] Start: 1973 Diabetic microalbuminuria test Diabetic microalbuminuria test [facility] Work Phone: Start: 1973 MMR Vaccine (1 of 2 - Risk 2-dose series) MMR Vaccine (1 of 2 - Risk 2-dose series) [facility] Start: 1971 COVID-19 Vaccine (1) COVID-19 Vaccine [...] Risk (1 of 4 - Increased Risk) [facility] Start: 1961 PNEUMOCOCCAL: 65+ (1 - PCV) PNEUMOCOCCAL: 65+ (1 - PCV) [facility] Start: 03-03-1956 COVID-19 VACCINE (#1) COVID-19 VACCINE (#1) [facility] Start: 1955 Hepatitis C screening Hepatitis C screen [facility] Work Phone: ALBUMIN/CREAT RATIO RND UR ALBUMIN/CREAT RATIO RND UR Lab Routine Uncontrolled type 2 diabetes mellitus with hyperglycemia (HCC) 11/13/2023 9:31 AM EST [facility] Work Phone: Anion gap measurement [...] Microbiology Routine Vaginal itching Dysuria Ordered: 01/02/2024 [facility] Work Phone: Comment on above: Ordered: 01/02/2024 BACTERIAL VAGINOSIS NAAT BACTERI AL VAGINOSIS NAAT Lab Routine Vaginal itching Dysuria Ordered: 01/02/2024 [facility] Work Phone: Comment on above: Ordered: 01/02/2024 BUN/Creatinine ratio [facility] BUN/Creatinine ratio [facility] BUN/Creatinine ratio [facility] BUN/Creatinine ratio [facility] BUN/Creatinine ratio [facility] BUN/Creatinine ratio [facility] BUN/Creatinine ratio [facility] Calcium [Mass/volume ] in Serum or Plasma [facility] Calcium [Mass/volume ] in Serum or Plasma [facility] Calcium [Mass/volume ] in Serum or Plasma [facility] Calcium [Mass/volume ] in Serum or Plasma [facility] Calcium [Mass/volume ] in Serum or Plasma [facility] Calcium [Mass/volume ] in Serum or Plasma [facility] Calcium [Mass/volume ] in Serum or Plasma [facility] JOLANTA/TRICHOMONAS NAAT JOLANTA /TRICHOMONAS NAAT Lab Routine Vaginal itching Dysuria Ordered: 01/02/2024 [facility] Work Phone: Comment on above: Ordered: 01/02/2024 Carbon dioxide, tota l [Moles/volume] in Serum or Plasma [facility] Carbon dioxide, tota l [Moles/volume] in Serum or Plasma [facility] Carbon dioxide, tota l [Moles/volume] in Serum or Plasma [facility] Carbon dioxide, tota l [Moles/volume] in Serum or Plasma [facility] Carbon dioxide, tota l [Moles/volume] in Serum or Plasma [facility] Carbon dioxide, tota l [Moles/volume] in Serum or Plasma [facility] Carbon dioxide, tota l [Moles/volume] in Serum or Plasma [facility] Chlamydia trachomatis+Neisseria gonorrhoeae DNA [Presence] in Unspecified specimen by NELL with probe detection GONORRHEA/CHLAMYDIA NAAT Lab Routine Vaginal itching Dysuria Ordered: 01/02/2024 [facility] Work Phone: Comment on above: Ordered: 01/02/2024 Chloride [Moles/volu me] in Serum or Plasma [facility] Chloride [Moles/volu me] in Serum or Plasma [facility] Chloride [Moles/volu me] in Serum or Plasma [facility] Chloride [Moles/volu me] in Serum or Plasma [facility] Chloride [Moles/volu me] in Serum or Plasma [facility] Chloride [Moles/volu me] in Serum or Plasma [facility] Chloride [Moles/volu me] in Serum or Plasma [facility] Comprehensive metabo lic 2000 panel - Serum or Plasma COMP METABOLIC PANEL Lab Routine Essential hypertension, benign 11/13/2023 9:31 AM EST [facility] Work Phone: COVID & INFLUENZA A/ B & RSV NAAT, ROUTINE [facility] Work Phone: Creatinine [Moles/volume] in Serum or Plasma [facility] Creatinine [Moles/volume] in Serum or Plasma [facility] Creatinine [Moles/volume] in Serum or Plasma [facility] Creatinine [Moles/volume] in Serum or Plasma [facility] Creatinine [Moles/volume] in Serum or Plasma [facility] Creatinine [Moles/volume] in Serum or Plasma [facility] Creatinine [Moles/volume] in Serum or Plasma [facility] CREATININE, 24 HOUR URINE CREATININE, 24 HOUR URINE Lab Routine Abnormal results of thyroid function studies Ordered: 11/11/2024 [facility] Comment on above: Ordered: 11/11/2024 End: 02-02-2026 DBT Breast - bilateral screening LAURO SCREENING W BRAIN Radiology Routine Encounter for screening mammogram for breast cancer 1 Occurrences starting 01/03/2025 until 02/02/2026 [facility] Work Phone: Comment on above: 1 Occurrences starting 01/03/2025 until 02/02/2026 End: 02-19-2023 ECG COMPLETE ECG COMPLETE ECG Routine Uncontrolled hypertension Palpitations 1 Occurrences starting 02/19/2022 until 02/19/2023 [facility] Work Phone: Comment on above: 1 Occurrences starting 02/19/2022 until 02/19/2023 End: 02-19-2023 Echocardiography ECHO Cardiology Routine Uncontrolled hypertension Palpitations 1 Occurrences starting 02/19/2022 until 02/19/2023 [facility] Work Phone: Comment on above: 1 Occurrences starting 02/19/2022 until 02/19/2023 End: 12-21-2020 FL Greater Than 1 Hour FL Greater Than 1 Hour Imaging Routine Once for 1 Occurrences starting 12/21/2020 until 12/21/2020 [facility] Work Phone: Comment on above: Once for 1 Occurrences starting 12/22/19 until 12/21/2020 FL Greater Than 1 Hour FL Greate r Than 1 Hour Imaging Routine 12/21/2020 3:01 PM EDT [employer] Work Phone: Glucose [Mass/volume ] in Serum or Plasma [facility] Glucose [Mass/volume ] in Serum or Plasma [facility] Glucose [Mass/volume ] in Serum or Plasma [facility] Glucose [Mass/volume ] in Serum or Plasma [facility] Glucose [Mass/volume ] in Serum or Plasma [facility] Glucose [Mass/volume ] in Serum or Plasma [facility] Glucose [Mass/volume ] in Serum or Plasma [facility] Glucose [Mass/volume ] in Serum or Plasma GLUCOSE, BLOOD (POC) Lab Routine Type 2 diabetes mellitus with hyperosmolarity without coma, with long-term current use of insulin (HCC) Uncontrolled type 2 diabetes mellitus with hyperglycemia (HCC) Ordered: 04/18/2025 [facility] Work Phone: Comment on above: Ordered: 04/18/2025 Hemoglobin A1c/Hemoglobin.total in Blood HGB A1C Lab Routine Uncontrolled type 2 diabetes mellitus with hyperglycemia (HCC) 02/19/2022 12:38 PM EDT [facility] Work Phone: Lipid 1996 panel - S chayo or Plasma LIPID PANEL BASIC Lab Routine Essential hypertension, benign 11/13/2023 9:31 AM EST [facility] Work Phone: Measurement of renal function [facility] Measurement of renal function [facility] Measurement of renal function [facility] Measurement of renal function [facility] Measurement of renal function [facility] Measurement of renal function [facility] Measurement of renal function [facility] End: 03-04-2025 MG Breast Screening LAURO SCREENING Radiology Routine Encounter for screening mammogram for breast cancer 1 Occurrences starting 02/03/2024 until 03/04/2025 [facility] Work Phone: Comment on above: 1 Occurrences starting 02/03/2024 until 03/04/2025 Oxygen therapy [Mini mum Data Set] Initiate Oxygen Therapy Protocol Respiratory Care Routine Daily until discontinued starting 12/21/2020 [facility] Work Phone: Comment on above: Daily until discontinued starting 2020 Patient Education [facility] Work Phone: Patient referral [facility] Work Phone: POCT glucose [facility] Work Phone: Comment on above: 4X Daily (AC & HS) until discontinued st arting 12/21/2020 As Needed until disc ontinued starting 12/21/2020 4X Daily (AC & HS) u ntil discontinued starting 12/24/2020 Potassium [Moles/vol ume] in Serum or Plasma [facility] Potassium [Moles/vol ume] in Serum or Plasma [facility] Potassium [Moles/vol ume] in Serum or Plasma [facility] Potassium [Moles/vol ume] in Serum or Plasma [facility] Potassium [Moles/vol ume] in Serum or Plasma [facility] Potassium [Moles/vol ume] in Serum or Plasma [facility] Potassium [Moles/vol ume] in Serum or Plasma [facility] ROUTINE FLU A/B + RSV [facility] Work Phone: Comment on above: Ordered: 06/26/2023 SARS-CoV-2 (COVID-19 ) RNA [Presence] in Respiratory specimen by NELL with probe detection [facility] Work Phone: Comment on above: Ordered: 06/26/2023 End: 04-25-2023 Screening mammography bi 2-view breast inc cad LAURO SCREENING Radiology Routine Encounter for screening mammogram for breast cancer 1 Occurrences starting 03/26/2022 until 04/25/2023 [facility] Work Phone: Comment on above: 1 Occurrences starting 03/26/2022 until 04/25/2023 Sodium [Moles/volume ] in Serum or Plasma [facility] Sodium [Moles/volume ] in Serum or Plasma [facility] Sodium [Moles/volume ] in Serum or Plasma [facility] Sodium [Moles/volume ] in Serum or Plasma [facility] Sodium [Moles/volume ] in Serum or Plasma [facility] Sodium [Moles/volume ] in Serum or Plasma [facility] Sodium [Moles/volume ] in Serum or Plasma [facility] Urea nitrogen [Mass/volume] in Serum or Plasma [facility] Urea nitrogen [Mass/volume] in Serum or Plasma [facility] Urea nitrogen [Mass/volume] in Serum or Plasma [facility] Urea nitrogen [Mass/volume] in Serum or Plasma [facility] Urea nitrogen [Mass/volume] in Serum or Plasma [facility] Urea nitrogen [Mass/volume] in Serum or Plasma [facility] Urea nitrogen [Mass/volume] in Serum or Plasma [facility] URINE FREE CORTISOL BY LC-MS/MS URINE FREE CORTISOL BY LC-MS/MS Lab Routine Abnormal results of thyroid function studies Ordered: 11/11/2024 [facility] Comment on above: Ordered: 11/11/2024 End: 02-19-2023 US CAROTID ARTERIES [facility] US CAROTID ARTERIES [facility] Vascular Lab Routine Uncontrolled hypertension Palpitations 1 Occurrences starting 02/19/2022 until 02/19/2023 [facility] Work Phone: Comment on above: 1 Occurrences starting 02/19/2022 until 02/19/2023 End: 02-19-2023 US RENAL ARTERY [facility] US RENAL ARTERY [facility] Vascular Lab Routine Uncontrolled hypertension Palpitations 1 Occurrences starting 02/19/2022 until 02/19/2023 [facility] Work Phone: Comment on above: 1 Occurrences starting 02/19/2022 until 02/19/2023 End: 03-01-2023 XR ANKLE GENERAL 3V AP/LAT/OBL LEFT XR ANKLE GENERAL 3V AP/LAT/OBL LEFT Radiology Routine Closed fracture of distal end of left fibula, unspecified fracture morphology, initial encounter 1 Occurrences starting 01/30/2022 until 03/01/2023 [facility] Work Phone: Comment on above: 1 Occurrences starting 01/30/2022 until 03/01/2023 [facility] Immunizations Immunization Date Immunization Notes Care Provider Nikia moore 07-12-2018 influenza virus vacc ine, unspecified formulation Kathryn Rivero [facility] Work Phone: [facility] Payers Date Payer Category Payer Self-pay [id number] 2023 Medicaid [id number] 2021 Medicare [facility] MEDICARE [facility] DUAL COMPLETE HMO SNP [id number] 2021-Present [phone] [address] [place] [address] Medicare [id number] 2021 Medicare [id number] 2021 Medicare (Managed Care) 1.2. [id number] 2021 [facility] [id number] 2020 Medicare [id number] 2020 Medicaid MEDICAID [facility] MEDICAID [id number] 2020-Present [phone] [address] [place] [address] Medicaid [id number] 2020 Medicaid [id number] 1955 Unknown [id number] 2.16.840.1.706518.3.579.2.6 27 Medicare [id number] Unknown [id number] Unknown [id number] 2.16.840.1.765208.3.579.2.4 62 Unknown [id number] 2.16.840.1.267832.3.579.2.4 62 Unknown [id number] 2.16.840.1.483423.3.579.2.4 62 Unknown [id number] 2.16.840.1.269356.3.579.2.4 62 Unknown [id number] 2.16.840.1.966239.3.579.2.4 62 Unknown [id number] 2.16.840.1.179893.3.579.2.4 62 Unknown [id number] 2.16.840.1.283647.3.579.2.4 62 Unknown [id number] 2.16.840.1.553883.3.579.2.4 62 Unknown [id number] 2.16.840.1.751760.3.579.2.4 62 Unknown [id number] 2.16.840.1.986422.3.579.2.4 62 Unknown [id number] 2.16.840.1.333486.3.579.2.4 62 Unknown [id number] 2.16.840.1.169439.3.579.2.4 62 Unknown [id number] 2.16.840.1.992656.3.579.2.4 62 Unknown [id number] 2.16.840.1.524647.3.579.2.4 62 Unknown [id number] 2.16.840.1.960408.3.579.2.4 62 Unknown [id number] 2.16.840.1.579199.3.579.2.4 62 Unknown [id number] 2.16.840.1.013721.3.579.2.4 62 Unknown [id number] 2.16.840.1.474440.3.579.2.4 62 Unknown [id number] 2.16.840.1.743529.3.579.2.4 62 Unknown [id number] 2.16.840.1.774143.3.579.2.4 62 Unknown [id number] 2.16.840.1.677306.3.579.2.4 62 Unknown [id number] 2.16.840.1.093676.3.579.2.4 62 Unknown [id number] 2.16.840.1.998091.3.579.2.4 62 Unknown [id number] 2.16.840.1.593142.3.579.2.4 62 Unknown [id number] 2.16.840.1.472867.3.579.2.4 62 Unknown [id number] 2.16.840.1.392943.3.579.2.4 62 Social History Date Type Detail Facility Start: 01-11-2018 End: 12-25-2020 Tobacco smoking status NHIS Current every day smoker [facility] Start: 11-02-2002 End: 11-02-2022 History of tobacco use Cigarette Smoker [employer] Phone: Start: 12-25-2020 End: 03-18-2023 Cigarettes smoked current (pack per day) - Reported [facility] Work Phone: Start: 12-25-2020 End: 05-25-2024 Tobacco use and exposure Never used [facility] Work Phone: Start: 12-25-2020 Alcohol intake Ex-drinker (finding) [employer] Work Phone: Start: 1955 Sex Assigned At Not on file [facility] Work Phone: Start: 01-13-2022 End: 02-28-2022 Exposure to SARS-CoV-2 (event) Not sure [facility] Work Phone: Start: 10-23-2021 End: 05-31-2025 Alcohol intake Current drinker of alcohol (finding) [facility] Start: 10-15-2012 End: 09-10-2022 Tobacco Comment 20+ years smoking [facility] Start: 12-30-2020 End: 07-27-2023 Tobacco smoking status [facility] Unknown if ever smoked [facility] Start: 12-28-2020 None [facility] Start: 12-28-2020 Marijuana [facility] Start: 12-28-2020 With Family [facility] Start: 12-30-2020 Cigarettes [facility] Start: 1955 Sex Assigned At Female [facility] Start: 12-10-2022 End: 05-25-2025 Tobacco smoking status NHIS Ex-smoker [facility] Work Phone: Start: 11-02-2002 End: 11-02-2022 History of tobacco use Current smoker [facility] Work Phone: Start: 03-18-2023 End: 04-30-2023 Tobacco use panel [facility] Work Phone: Start: 08-29-2012 Adult Depression Screening Assessment 0 [facility] Work Phone: Tobacco Nicotine Use: Positive smoking history. Type: Cigarettes. [facility] Tobacco smoking status [facility] Has the [address] gas, oil, or water [address] threatened to shut off services in your home in past 12Mo No [facility] Are you now , , , , never or living with a partner? [facility] How often to you hav e a drink containing alcohol? Never [facility] Do you feel stress - tense, restless, nervous, or anxious, or unable to sleep at night because your mind is troubled all the time - these days [OSQ] Not at all [facility] (I/We) worried whether (my/our) food would run out before (I/we) got money to buy more. Never true [facility] Start: 12-28-2024 Sex Female (finding) [facility] NEGATED: Highlighted row Not [facility] Medical Equipment Procedure Code Equipment Code Equipment Origin al Text Equipment Identifier Dates Dilation and curettage SEALANT,FLOSEAL HEMOSTATIC 5ML FDA Start: 07-26-2024 Dilation and curettage SEALANT,FLOSEAL HEMOSTATIC 5ML FDA Start: 07-26-2024 Dilation and curettage SEALANT,FLOSEAL HEMOSTATIC 5ML FDA Start: 07-26-2024 Dilation and curettage SEALANT,FLOSEAL HEMOSTATIC 5ML FDA Start: 07-26-2024 Dilation and curettage SEALANT,FLOSEAL HEMOSTATIC 5ML FDA Start: 07-26-2024 [id number], [id number], [id number], [id number], [id number], [id number], [id number], [id number], [id number] Start: 06-24-2013 End: 06-15-2024 Comment on above: [...] Assessment Result Facility 12-28-2024 Functional status Ambulates [facility] Work Phone: 11-25-2023 Functional Status Ambulation in Room [facility] 07-03-2023 Functional status Ambulates;Bath room Privilege [facility] Work Phone: 11-04-2022 Functional status Ambulates;Up ad sandi [facility] Work Phone: 10-25-2014 Are you deaf, or do you have serious difficulty hearing No 10/25/2014 5:51 PM Susan Manzano MA No [facility] 10-25-2014 Are you blind, or do you have serious difficulty seeing, even when wearing glasses No 10/25/2014 5:51 PM Susan Manzano MA No [facility] 10-25-2014 Do you have serious difficulty walking or climbing stairs No 10/25/2014 5:51 PM Susan Manzano MA No [facility] 10-25-2014 Do you have difficul ty dressing or bathing No 10/25/2014 5:51 PM Susan Manzano MA No [facility] 10-25-2014 Because of a physica l, mental, or emotional condition, do you have difficulty doing errands alone such as visiting a physician's office or shopping No 10/25/2014 5:51 PM Susan Manzano MA No [facility] Mental Status Date Assessment Result Facility 04-15-2025 Cognitive function Level Of Cons ciousness Awake;Follows [facility] Work Phone: 12-28-2024 Cognitive function Level Of Cons ciousness Awake;Alert;Appropriate;Fol lows Commands [facility] Work Phone: 12-28-2024 Cognitive function Voice/Name [facility] Work Phone: 11-25-2023 Mental Status Oriented x 4 [facility] 07-03-2023 Cognitive function Voice/Name [facility] Work Phone: 11-04-2022 Cognitive function Voice/Name [facility] Work Phone: 10-25-2014 Because of a physica l, mental, or emotional condition, do you have serious difficulty concentrating, remembering, or making decisions No 10/25/2014 5:51 PM Susan Manzano MA No [facility] Clinical Notes 10-12-2018 to 06-21-2025 Telephone Encounter - Liz Richards LPN - 05/31/2025 1:27 PM EDTTelephone Encounter - Liz Richards LPN - 05/31/2025 1:27 PM Preet Hernandez DO - 05/31/2025 11:52 AM EDT Note Date & Type Note Facility 06-21-[address] [facility] 05-31-2025 Telephone encounter Note Images from the original note were not included. Electronic PA rec'd and completed for trulicity 3mg. This was approved. Prior authorization approved Payer: [employer] P[employer] Part D [id number] Note from payer: This medication or product was previously approved on [id number] from 2024-12-14 to 2025-09-27. Please note: This [...] to its destination. To be filled at: [facility] [address] [place] [address] [address] [facility] - [phone] [facility] 05-31-2025 Miscellaneous Notes Images from the original note were not included. Electronic PA rec'd and completed for trulicity 3mg. This was approved. Prior authorization approved Payer: [employer] Part D [id number] Note from payer: This medication or product was previously approved on [id number] from 2024-12-14 to 2025-09-27. Please note: This [...] to its destination. To be filled at: [facility] [address] [place] [address] [address] - [phone] documented in this encounter [facility] 05-31-2025 Note HNO ID: [id number] Author: PREET FARRAR DO Service: ? Author Type: Physician Type: Progress Notes Filed: 06/05/2025 08:51 Note Text: Patient presents with: F/U 3 Month HPI: Deonte Blanco is a 69 year old female who presents to the office today for review of health conditions. Concerns today: She is going to be seeing Microfilm Duplicating Unit Supervisor Dr. Johnson at [facility] for opinion regarding her diabetes- she is currently taking Lantus once a day in AM, as well as Trulicity 1.5 mg once a week SQ. She is now using CGM which is helping her determine food triggers- she is continuing to work on adjusting this. Recently had situation of a vaginal bleed after intercourse with her boyfriend. Was seen by PURCHASING ASSOCIATE for this condition in the ER Ms. [...] mg armor thyroid) Blood-Glucose Meter,Continuous (DEXCOM G6 ONCOLOGY SOCIAL WORKER) [facility] Use to check blood sugar at least [...] Take 1 ta (more content not included)... [facility] 05-31-2025 History of Present illness Narrative Patient presents with: F/U 3 Month HPI: Deonte Blanco is a 69 year old female who presents to the office today for review of health conditions. Concerns today: She is going to be seeing Microfilm Duplicating Unit Supervisor Dr. Johnson at [facility] for opinion regarding her diabetes- she is currently taking Lantus once a day in AM, as well as Trulicity 1.5 mg once a week SQ. She is now using CGM which is helping her determine food triggers- she is continuing to work on adjusting this. Recently had situation of a vaginal bleed after intercourse with her boyfriend. Was seen by PURCHASING ASSOCIATE for this condition in the ER Ms. [...] mg armor thyroid) Blood-Glucose Meter,Continuous (DEXCOM G6 ONCOLOGY SOCIAL WORKER) misc Use to check blood sugar at [...] DM - Uncontrolled E11.65 Insulin: Yes Insulin [place], Disposable, (BD ULTRA-FINE MARIA T PEN NEEDLE) [...] agreed with the plan. Preet Farrar DO [address] [place] [address] [1] Social History Tobacco Use Smoking status: Former Current packs/day: 0.00 Average packs/day: 0.5 packs/day for 20.0 years (10.0 ttl pk-yrs) Types: Cigarettes Start date: 11/02/2002 Quit date: 11/02/2022 Years since quittin.5 Smokeless tobacco: Never Substance Use Topics Alcohol use: Yes Drug use: Yes Types: Marijuana documented in this encounter [facility] 05-25-2025 Discharge summary [facility] 05-25-2025 Discharge summary Note Date/Time May 25, 2025 11:40pm [facility] Medical Records Department [address] [place] [address] Emergency Department Summary 05/25/25 MR#: [id number] Acct: [id number] Name: DEONTE BLANCO Rep #:[id number] : 1955 69 From: Berry Waldrop MD [...] PO MOWEFR 07/21/24 0 12/26/24 08:00 History ([place] Thyroid) insulin glargine 100 unit/mL (3 25 [...] 04/15/25 Un known History [facility] Allergy/AdvReac Type Severity Reaction Status Date [...] I spoke to Dr. Anushka Isaac patient's inventory specialist manager who did her hysterectomy. We discussed the [...] pen 25 unit subcut DAILY thyroid (pork) [[place] Thyroid] 30 mg tablet 30 mg PO MOWEFR elderberry fruit 200 mg capsule 2,000 mg PO DAILY Trulicity 1.5 mg/0.5 mL pen injector 1.5 mg subcut FR Primary Care Provider: Preet Farrar Referrals: Preet Farrar DO [Primary Care Provider] - Print Language: [place] What to do if you have Problems For any increased pain, shortness of breath, bleeding, nausea or vomiting, chestpain, or any unexpected problems, contact your Primary Care Provider. Call [facility] ([phone]) or report to the closest Emergency Room. Call 911 if necessary. 05/25/25 7398 <Electronically signed by Berry Waldrop MD> Cosigner [...] cc: Dr. Preet Farrar DO ~* Signed [facility] Work Phone: 1(545) 219-650008-18-2025 Telephone encounter Note* Telephone Encounter - Lisa [...] Aparicio RN May 15, 2025 9:17 AM [facility]08-18-2025 Miscellaneous Notes* Telephone Encounter - Lisa Aparicio [...] 15, 2025 9:17 AM documented in this encounterReg[facility]25 Telephone encounter Note * Telephone Encounter - Gini Martinez LPN - 04/27/2025 1:51 PM EDT Line busy will need to try back again. [facility]07-31-2025 Miscellaneous Notes* Telephone Encounter - Gini Martinez LPN - 04/27/2025 1:51 PM EDT Line busy will need to try back again. * Telephone Encounter - Gini Martinez LPN - 04/27/2025 1:50 PM EDT ----- Message from Liliana Bennett APRN.DRAW FIRE OPERATOR sent at 04/27/2025 12:13 PM EDT ----- [...] the labs. Thank you documented in this encounterRegency [facility]-2025 Telephone encounter Note * Telephone Encounter - [...] have recheck of the labs. Thank you [facility]07-23-2025 Telephone encounter Note* Telephone Encounter - Laurie [...] armor thyroid) Authorizing Provider: LAURIE SANDERSON DO [facility]07-23-2025 Telephone encounter Note* Telephone Encounter - Laurie [...] armor thyroid) Authorizing Provider: LAURIE SANDERSON DO [facility]07-23-2025 Miscellaneous Notes* Telephone Encounter - Laurie Sanderson [...] in pcp office: 05/31/25 Last TSH @ [facility] on 12/15/24: 0.836 (0.300-4.200) Last T4 free direct @ [facility] on 12/15/24: 0.80 (0.76-1.46) documented in this encounterRegency Hospital [facility]07-23-2025 Telephone encounter Note * Telephone Encounter - Suzanna Coffey RN - 04/19/2025 11:56 AM EDT Pt reports she is out of this medication and needs it sent to [facility]. Sending to [facility] for Dr. Farrar. Last ov in pcp office: 04/18/25 Next ov in pcp office: 05/31/25 Last TSH @ [facility] on 12/15/24: 0.836 (0.300-4.200) Last T4 free direct @ [facility] on 12/15/24: 0.80 (0.76-1.46) [facility]07-22-2025 History of Present illness Narrative* Liliana Bennett APRN.DRAW FIRE OPERATOR - 04/18/2025 8:20 AM EDT This is [...] by Dr. Overton, a hypertension specialist in [place] who she sees annually and recently saw [...] visit: Discharge Summary Note Author Berry Waldrop [facility] Note Date/Time April 15, 2025 7:16pm [...] meals HTN Controlled usually, was elevated at insurance operations rep and ER visit Likely also triggered by [...] DM - Uncontrolled E11.65 Insulin: Yes Insulin [place], Disposable, (BD ULTRA-FINE MARIA T PEN NEEDLE) [...] family that goes there - DEXCOM G6 ONCOLOGY SOCIAL WORKER- Deonte would benefit from having tighter control [...] only eating what she's supposed to. Offered supervisor picking crew but she knows she is eating right. [...] which included preparing to see the patient, jaks-vz-vgsu patient care, completing clinical documentation, obtaining and/or reviewing separately obtained history, performing a medically appropriate examination, counseling and educating the pat ient/family/caregiver, ordering medications, tests, or procedures, communicating results to the patient/family/caregiver, and care coordination (not separately reported). Return to the office as scheduled or as needed for worsening/no improvement. Liliana Bennett APRN.DRAW FIRE OPERATOR Recording using [employer] software for draft documentation of the visit was discussed with the patient/authorized dealer compliance representative; all questions welcomed and answered. Patient/authorized dealer compliance representative agreed to proceed documented in this encounterRegency Hospital [facility]07-22-2025 NoteHNO ID: [id number] Author: LILIANA BENNETT APRN.DEREK Service: ? Author [...] by Dr. Overton, a hypertension specialist in [place] who she sees annually and recently saw [...] visit: Discharge Summary Note Author Berry Waldrop [facility] Note Date/Time April 15, 2025 7:16pm [...] meals HTN Controlled usually, was elevated at insurance operations rep and ER visit Likely also triggered by [...] by mouth once malcolm (more content not included)...[facility]07-22-2025 Instructions* Patient Instructions* Liliana Bennett APRN.CNP - 04/18/2025 8:19 AM EDT Get labs done on way out today Start the 25 units of lantus daily Continue monitoring and logging your blood sugars Watch drinking the electrolytes packets specifically potassium in it Get your mammogram scheduled documented in this encounterRegency [facility]07-[facility]-2025 Telephone encounter Note * Telephone Encounter - [...] from 04/16/2025 as well. Josie Starks RN [facility]07-21-2025 Miscellaneous Notes* Telephone Encounter - Josie Starks [...] well. Josie Starks RN documented in this encounterRegency Hospital [facility]07-20-2025 Telephone encounter Note * Telephone Encounter - Darline Ng RN - 04/16/2025 12:07 PM EDT Reason for Call: Elevated blood sugar Outcome: Patient was conferenced to [facility] in Appointment Center for PCP scheduling within [...] postmenopausal Protocols used: Diabetes - High Blood Wooez-ZCJIA-RA [facility]07-20-2025 Miscellaneous Notes* Telephone Encounter - Darline Ng RN - 04/16/2025 12:07 PM EDT Reason for Call: Elevated blood sugar Outcome: Patient was conferenced to [facility] in Appointment Center for PCP scheduling within [...] postmenopausal Protocols used: Diabetes - High Blood Qfdrp-AIBQN-NE documented in this encounterRegency [facility]07-19-[address] [facility] Medical Records Department [address] [place] [address] Emergency Department Summary 04/15/25 MR#: [id number] Acct: [id number] Name: DEONTE BLANCO Rep #:[id number] : 1955 69 From: Berry Waldrop MD [...] PO MOWEFR 07/21/24 0 12/26/24 08:00 History ([place] Thyroid) insulin glargine 100 unit/mL (3 20 [...] 81.4 H Lymph % (Auto) 10.8 L Pike % (Auto) 6.5 Eos % (Auto) 0.2 [...] Sl. Cloudy Urine pH 6.0 Ur Specific [place] 1.015 Urine Protein 30 H Urine Glucose [...] pen 20 unit subcut DAILY thyroid (pork) [[place] Thyroid] 30 mg tablet 30 mg PO MOWEFR elderberry fruit 200 mg capsule 1,000 mg PO DAILY Trulicity 1.5 mg/0.5 mL pen injector 1.5 mg subcut QWEEK Primary Care Provider: Preet Farrar Referrals: Preet Farrar, [Primary Care Provider] - Print Language: [place] What to do if you have Problems For any increased pain, shortness of breath, bleeding, nausea or vomiting, chestpain, or any unexpected problems, contact your Primary Care Provider. Call [facility] ([phone]) or report tothe closest Emergency Room. Call 911 if necessary. 04/15/251702 Cosigner Signature (if applicable): CC: Dr. Preet Farrar DO ~ Signed [facility]07-19-2025 Discharge summary Author Berry Waldrop [facility] Note Date/Time April 15, 2025 7:16 pm [facility] Medical Records Department [address] [place] [address] Emergency Department Summary 04/15/25 MR#: [id number] Acct: [id number] Name: DEONTE BLANCO Rep #:[id number] : 1955 69 From: Berry Waldrop MD [...] Prior similar symptoms: Yes Recent Ill[facility] Medical History Cardiology follow-up encounter History of [...] PO MOWEFR 07/21/24 0 12/26/24 08:00 History ([place] Thyroid) insulin glargine 100 unit/mL (3 20 [...] 81.4 H Lymph % (Auto) 10.8 L Pike % (Auto) 6.5 Eos % (Auto) 0.2 [...] Sl. Cloudy Urine pH 6.0 Ur Specific [place] 1.015 Urine Protein 30 H Urine Glucose [...] pen 20 unit subcut DAILY thyroid (pork) [[place] Thyroid] 30 mg tablet 30 mg PO MOWEFR elderberry fruit 200 mg capsule 1,000 mg PO DAILY Trulicity 1.5 mg/0.5 mL pen injector 1.5 mg subcut QWEEK Primary Care Provider: Preet Farrar Referrals: Preet Farrar DO [Primary Care Provider] - Print Language: [place] What to do if you have Problems For any increased pain, shortness of breath, bleeding, nausea or vomiting, chestpain, or any unexpected problems, contact your Primary Care Provider. Call [facility] ([phone]) or report to the closest Emergency Room. Call 911 if necessary. 04/15/25 1703 <Electronically signed by Berry Waldrop MD> Cosigner Signature (if applicable): CC: Dr. Preet Farrar DO ~ Signed [facility] Work Phone: 1(825) 996-559107-11-2025 Telephone encounter Note* Telephone Encounter - Susie LizALEXIA - 04/07/2025 10:06 AM EDT Pt notified via my chart. [facility]07-11-2025 Miscellaneous Notes* Telephone Encounter - Liz Richards LPN - 04/07/2025 10:06 AM EDT Pt notified via my chart. * Telephone Encounter - Liz Richards LPN - 04/06/2025 1:46 PM EDT Images from the original note were not included. This was denied last year and again this year. ote from payer: Request Reference Number: [id number]. ARMOUR THYRO TAB 120MG is denied for not meeting the prior authorization requirement(s). Details of this decision are in the notice attached below or have been faxed to you. Payer: [employer] PBM Part D [phone] Electronic appeal: Not supported Appeal instructions: Appeals are not supported through ePA. Please refer to the fax case notice forappeals information and instructions. View History Notes Time User Attachment Attachment received from payer. 04/06/2025 1:43 PM Cchs, Rx Priorauth In Document Pharmacy Benefits Open Encounter SUSANADEONTE DEE - [facility] ([employer]) Covered: Retail, Mail Order Unknown: Specialty, Long-Term Care BIN: [id number] : 1955 Group ID: [id number] PCN: [id number] Legal sex: F Group name: COMMERCIAL Address: [address] [place], [place] [id number] Medication Being Authorized ARMOUR THYROID 120 mg tablet Take 1 tablet PO daily in AM Dispense: 90 tablet Refills: 1 TRACEY Start: 01/20/2025 Class: Normal Diagnoses: Acquired hypothyroidism This order has been released to its destination. To be filled at: [facility] [address] [place] [address] [address] - [phone] Prior Authorization History for ARMOUR THYROID 120 [...] EDT PRIOR AUTHORIZATION Medication for Prior Authorization: [place] Thy[facility] Insurance Company: [facility] Medicare Patient insurance ID number: [id number] Lisa Aparicio RN documented in this encounterRegency Hospital [facility]07-10-2025 Telephone encounter Note * Telephone Encounter - Liz Richards LPN - 04/06/2025 1:46 PM EDT Images from the original note were not included. This was denied last year and again this year. ote from payer: Request Reference Number: [id number]. ARMOUR THYRO TAB 120MG is denied for not meeting the prior authorization requirement(s). Details of this decision are in the notice attached below or have been faxed to you. Payer: [employer] P[employer] Part D [phone] Electronic appeal: Not supported Appeal instructions: Appeals are not supported through ePA. Please refer to the fax case notice forappeals information and instructions. View History Notes Time User Attachment Attachment received from payer. 04/06/2025 1:43 PM Cchs, Rx Priorauth In Document Pharmacy Benefits Open Encounter DEONTE BLANCO - [facility] ([employer]) Covered: Retail, Mail Order Unknown: Specialty, Long-Term Care BIN: [id number] : 1955 Group ID: [id number] PCN: [id number] Legal sex: F Group name: COMMERCIAL Address: [address] [place], [place] [id number] Medication Being Authorized ARMOUR THYROID 120 mg tablet Take 1 tablet PO daily in AM Dispense: 90 tablet Refills: 1 TRACEY Start: 01/20/2025 Class: Normal Diagnoses: Acquired hypothyroidism This order has been released to its destination. To be filled at: [facility] [address] [place] [id number] [address] [facility] - [phone] Prior Authorization History for ARMOUR THYROID 120 mg tablet 1 year ago Denied [facility]07-10-2025 Telephone encounter Note* Telephone Encounter - Liz Richards LPN - 04/06/2025 11:24 AM EDT PA completed with both doses. [facility]07-10-2025 Telephone encounter Note* Telephone Encounter - Liz Richards LPN - 04/06/2025 11:00 AM EDT Electronic PA requested for both doses 120mg and 30 mg [facility]07-10-2025 Telephone encounter Note* Telephone Encounter - Lisa Aparicio RN - 04/06/2025 10:37 AM EDT PRIOR AUTHORIZATION Medication for Prior Authorization: [place] Thy[facility] Insurance Company: [facility] Medicare Patient insurance ID number: [id number] Lisa Aparicio RN [facility]07-07-2025 Telephone encounter Note* Telephone Encounter - Lisa [...] Aparicio RN April 03, 2025 9:31 AM [facility]07-07-2025 Miscellaneous Notes* Telephone Encounter - Lisa Aparicio [...] 03, 2025 9:31 AM documented in this encounterRegency Hospital [facility] West06-27-2025 Note* Addendum Note - Liliana Bennett APRN.CNP - 03/24/2025 9:13 AM EDTAddended by: LILIANA BENNETT on: 03/24/2025 09:13 AM Modules accepted: Orders [facility]06-27-2025 Miscellaneous Notes* Addendum Note - Liliana Bennett APRN.CNP - 03/24/2025 9:13 AM EDTAddended by: LILIANA BENNETT on: 03/24/2025 09:13 AM Modules accepted: Orders documented in this encounterRegency Hospital [facility] West06-25-2025 Instructions* Patient Instructions* Liliana Bennett APRN.CNP - 03/22/2025 1:58 PM EDT Please schedule your mammogram Try cutting the carbs down to about 40g a day. Carbs and sugars with the trulicity can cause GI upset called sugar dumping Drink plenty of water Continue with at least 80-100 g of protein a day Start your new dose of trulicity on Thursday documented in this encounterRegency Hospital [facility] West06-25-2025 NoteHNO ID: [id number] Author: LILIANA BENNETT APRN.CNP Service: ? Author [...] she developed pancreatitis. Scheduled f/u appt with Client Technical Support Associate. HISTORY OF PRESENT ILLNESS: Hyperglycemia: - Reports [...] with an orange or apple. - Dinner: Dexter or tuna with broccoli, cauliflower, or [place]wnside sprouts. - Snacks: Granola bars (17 grams [...] tablet by mouth on (more content not included)...[facility]06-25-2025 History of Present illness Narrative* Liliana Bennett APRN.DRAW FIRE OPERATOR - 03/22/2025 1:44 PM EDT This is [...] she developed pancreatitis. Scheduled f/u appt with Client Technical Support Associate. HISTORY OF PRESENT ILLNESS: Hyperglycemia: - Reports [...] with an orange or apple. - Dinner: Dexter or tuna with broccoli, cauliflower, or [place] sprouts. - Snacks: Granola bars (17 grams [...] DM - Uncontrolled E11.65 Insulin: Yes Insulin [place], Disposable, (BD ULTRA-FINE MARIA T PEN NEEDLE) [...] as needed for worsening/no improvement. Liliana Bennett APRN.DRAW FIRE OPERATOR Recording using [employer] software for draft documentation of the visit was discussed with the patient/authorized dealer compliance representative; all questions welcomed and answered. Patient/authorized dealer compliance representative agreed to proceed documented in this encounterRegency Hospital [facility] West06-21-2025 Telephone encounter Note * Telephone Encounter - Conchis Jacob MD - 03/18/2025 4:07 PM EDT The following approved medication requests have been transmitted electronically. Requested Prescriptions Signed Prescriptions Disp Refills ondansetron orally disintegrating (ZOFRAN ODT) 4 mg disintegrating tablet 20 tablet 0 Sig: Take 1 tablet by mouth every 8 hours as needed for nausea/vomiting. Authorizing Provider: CONCHIS JACOB MD [facility]06-21-2025 Miscellaneous Notes* Telephone Encounter - Conchis Jacob [...] asking if Zofran could be sent to [facility]. Pended previous order of Zofran. Message [...] office open till noon. documented in this encounterRegency Hospital [facility] West06-21-2025 Telephone encounter Note * Telephone Encounter - [...] Zofran pended for review. Josie Starks RN [facility]06-21-2025 Telephone encounter Note* Telephone Encounter - Josie [...] asking if Zofran could be sent to [facility]. Pended previous order of Zofran. Message from 03/17/2025: Spoke with pt she states did not take it that day at all in case . She states she has been sick forpast 2 days with nausea and vomited once and diarrhea. Told her plenty of fluids and rest if no better when gets up tomorrow call in office open till noon. [facility]06-19-2025 Telephone encounter Note* Telephone Encounter - Sofia Rodriguez MA - 03/16/2025 3:47 PM EDT Left message to return call Sofia Rodriguez MA [facility]06-19-2025 Miscellaneous Notes* Telephone Encounter - Sofia Rodriguez [...] insulin shot tomorrow morning? documented in this encounterRegency Hospital [facility] West06-19-2025 Telephone encounter Note * Telephone Encounter - Liliana Bennett APRN.DEREK - 03/16/2025 2:55 PM EDT If patient doesn't recall if she took the insulin or not, she should not take it and wait until tomorrow. Better for her to be high than to bottom out. Thank you [facility]06-19-2025 Telephone encounter Note* Telephone Encounter - Yesi [...] and take her insulin shot tomorrow morning? [facility]05-25-2025 Radiology Diagnostic study note [facility] Imaging Services [address] [place], [place] [id number] CTA Abdomen W/WO Contrast MR#: [id number] Acct: [id number] Name: DEONTE BLANCO Rep #: [id number] : 1955 F 69 From: [place] Covarrubias MD PCP: Dr. Preet Farrar, DO Status: RE G CLI Study:CTA Abdomen W/WO Contrast Date of Exam: 02/16/25 Exam# [id number] Ordering Dr: Jozef Reyna MD PROCEDURE: CTA [...] stenosis of the renal arteries. Reading [facility] CC: Dr. Julien Reyna MD; Dr. Preet Farrar DO ~ Extrusion Utility Worker: Signed [facility]05-24-2025 NoteHNO ID: [id number] Author: PREET FARRAR DO Service: ? Author Type: Physician Type: Progress Notes Filed: 02/18/2025 11:49 Note Text: Patient presents with: F/U 3 Month HPI: Deonte Blanco is a 69 year old female who presents to the office today for review of health conditions. Concerns today: She was seen by Microfilm Duplicating Unit Supervisor Dr. Isaac and states that she didn't [...] In the morning. (Take (more content not included)...[facility]05-20-2025 NoteHNO ID: [id number] Author: RODRIGO HOLGUIN RN Service: ? Author Type: Registered Nurse Type: Progress Notes Filed: 02/14/2025 13:17 Note Text: DIABETES CARE AND EDUCATION VISIT Location: [place] Type of visit: In person individual PATIENT'S [...] Blanco DATE: February 14, 2025 TIME: 12:48 [facility]05-15-2025 Instructions* Patient Instructions* Bean Isaac MD - 02/09/2025 10:35 AM EDT Continue same dose for latus and glimepiride. Recommend being careful wit trulicity as it has same side effects as Ozempic, and hence risk of pancreatitis If stopping Trulicity, I would recommend resuming januvia 100 mg daily documented in this encounterRegency Hospital [facility] West05-15-2025 NoteHNO ID: [id number] Author: PUSHPA FALCON RN Service: ? Author Type: Registered Nurse Type: Progress Notes Filed: 02/09/2025 19:08 Note Text:[facility]05-15-2025 History of Present illness Narrative* Pushpa [...] carbs . 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 Bean Isaac MD Endocrinology Associate Staff [facility] Specialty & Surgery [facility] Endocrinology and Metabolism [place] [phone] Medical Decision Making: Medical Decision Making Level: 1 - N/A documented in this encounterReg[facility]-15-2025 NoteHNO ID: [id number] Author: BEAN ISAAC MD Service: ? Author [...] carbs . Lifestyle -Exercise: 30 mins on [employer] daily -Diet: Breakfast: 3 eggs, 1 slice [...] Benign hypertensive heart disease (more content not included)...[facility]05-01-2025 Evaluation note* Diagnosis Onset Date Resolution [...] postoperative care noneactive February 06, 2025 10:49am [facility] Work Phone: 1(304) 559-733704-08-2025 Telephone encounter Note* Telephone Encounter - Yesi [...] she has more questions. Madie Bruce MA [facility]04-08-2025 Miscellaneous Notes* Telephone Encounter - Yesi Kitchen [...] will follow up with Dr. Farrar or extension service agent provider for Dr. Isaac. * Telephone Encounter [...] hysterectomy Protocols used: Diabetes - High Blood Guive-KHLHS-IS documented in this encounterRegency [facility]04-08-2025 NotePatient Outreach (FAMPWS) DEONTE BLANCO ([id number]) 1955 F Date Time Provider Department 01/03/25 [...] breast cancer [Z12.31] Order(s):LAURO SCREENING W BRAIN [0856633] Order #: [id number] FUTURE Prescriptions as of 02/03/2025 - ARMOUR [...] on fasting at 8 am - Insulin [place], Disposable, (BD ULTRA-FINE MARIA T PEN NEEDLE) [...] BMI 30-34.9 [E66.811] 03/23/2024 Encounter Status:Closed by Funium, PRODUSER on 02/03/25[facility] 01-02-2025 Telephone encounter Note* Telephone Encounter - Yesi Kitchen RN - 01/02/2025 4:52 PM EDT Routing note to Dr. Isaac for review as well-please see triage encounter from 12/30/24. [facility]04-07-2025 Miscellaneous Notes* Telephone Encounter - Yesi Kitchen [...] stated the call had been handled through [employer] chat. No notes in triage with what [...] reply. Chelo Prasad RN documented in this encounterRegency [facility]04-07-2025 Telephone encounter Note * Telephone Encounter - Sahara Mejia LPN - 01/02/2025 4:43 PM EDT Pt. informed. [facility]04-07-2025 Telephone encounter Note* Telephone Encounter - Preet Farrar DO - 01/02/2025 3:36 PM EDT Please have her hold the Januvia when starting the Trulicity Preet Farrar DO [facility]04-07-2025 Telephone encounter Note* Telephone Encounter - Yesi [...] will follow up with Dr. Farrar or extension service agent provider for Dr. Isaac. [facility]04-07-2025 Telephone encounter Note* Telephone Encounter - Pushpa [...] Falcon RN January 02, 2025 1:29 PM [facility]04-07-2025 Telephone encounter Note* Telephone Encounter - Yesi [...] stated the call had been handled through [employer] chat. No notes in triage with what was done. Will follow up with Dr. Isaac and her office. Will also forward this msg to her as well. [facility]04-04-2025 Telephone encounter Note* Telephone Encounter - Yesi [...] hysterectomy Protocols used: Diabetes - High Blood Iqloh-TZKZZ-ZM [facility]04-03-2025 Telephone encounter Note* Telephone Encounter - Chelo [...] call patient with reply. Chelo Prasad RN [facility]04-02-2025 Progress note Author Anushka Isaac [facility] Note Date/Time December 28, 2024 8:[address] [facility] Medical Records Department [address] [place] [address] Progress Note - OBGYN 12/28/24 0829 MR#: [id number] Acct: [id number] Name: DEONTE BLANCO Rep #:[id number] : 1955 69 From: Anushka centeno MD PCP: Dr. Preet Farrar, DO Status:AD M IN Location: MS3 QB546-5 Subjective Subjective Patient doing well without complaints [...] Cosigner Signature (if applicable): CC: ~ Signed [facility] Work Phone: 1(490) 398-582804-02-2025 Progress note [facility] Medical Records Department [address] [place] [address] Progress Note - OBGYN 12/28/24828 MR#: [id number] Acct: [id number] Name: DEONTE BLANCO Rep #:[id number] : 1955 69 From: Anushka centeno MD PCP: Dr. Preet Farrar, DO Status:AD M IN Location: [place] [address]-1 Subjective Subjective Patient doing well without complaints [...] Cosigner Signature (if applicable): CC: ~ Signed [facility]04-01-2025 Progress note Author Carmen Dallas [facility] Note Date/Time December 27, 2024 6:57 pm [facility] Medical Records Department [address] [place] [address] Progress Note 12/27/24 1729 MR#: [id number] Acct: [id number] Name: DEONTE BLANCO Rep #:[id number] : 1955 69 From: Carmen Dallas MD PCP: Dr. Preet Farrar, DO Status:AD M IN Location: [place] [address]-1 Subjective Subjective Patient is a 69-year-old female [...] * Also takes sitagliptin. * #Hypothyroidism: On [place] Thyroid. DVT prophylaxis: As per primary service. Thank you for the courtesy of the consult. Hospitalist service will continue tofollow with you. Charges/Coding Visit Charges Inpatient E&M: 32362 Subs Hosp L2 12/27/24 9613 <Electronically signed by Carmen Dallas MD> Carmen Dallas MD Cosigner Signature (if applicable): CC: ~ Signed [facility] Work Phone: 1(405) 724-402804-01-2025 Progress note [facility] Medical Records Department [address] [place] [address] Progress Note 12/27/24 1729 MR#: [id number] Acct: [id number] Name: DEONTE BLANCO Rep #:[id number] : 1955 69 From: Carmen Dallas MD PCP: Dr. Preet Farrar, DO Status:AD M IN [place] [facility] FD996-0 Subjective Subjective Patient is a 69-year-old female [...] * Also takes sitagliptin. * #Hypothyroidism: On [place] Thyroid. DVT prophylaxis: As per primary service. Thank you for the courtesy of the consult. Hospitalist service will continue tofollow with you. Charges/Coding Visit Charges Inpatient E&M: 50136 Subs Hosp L2 12/27/24 2878 Carmen Dallas MD Cosigner Signature (if applicable): CC: ~ Signed [facility]04-01-2025 Progress note Author Anushka Isaac [facility] Note Date/Time December 27, 2024 4:44 pm [facility] Medical Records Department [address] [place] [address] Progress Note 12/27/24 1639 MR#: [id number] Acct: [id number] Name: DEONTE BLANCO Rep #:[id number] : 1955 69 From: Anushka centeno MD PCP: Dr. Preet Farrar, DO Status:[facility] Location: [place] [address] Progress Note patient seen- pain fairly controlled, catheter replaced and heart rate improved now, bp still elevated, BS 299 and will consult medicine for assistance with management. 12/27/24 1644 <Electronically signed by Anushka Isaac MD> Anushka Isaac MD Cosigner Signature (if applicable): CC: ~ Signed [facility] Work Phone: 1(859) 429-358804-01-[address] [facility] Medical Records Department [address] [place] [address] Progress Note 12/27/24 1639 MR#: [id number] Acct: [id number] Name: DEONTE BLANCO Rep #:[id number] : 1955 69 From: Anushka centeno MD PCP: Dr. Preet Farrar, DO Status:HARSHA March [facility] Location: [place] [address] Progress Note patient seen- pain fairly controlled, catheter replaced and heart rate improved now, bp still elevated, BS 299 and will consult medicine for assistance with management. 12/27/241643 Anushka Isaac MD Cosigner Signature (if applicable): CC: ~ Signed [facility]04-01-2025 Discharge summary Author Anushka Isaac [facility] Note Date/Time December 27, 2024 12:[address] [facility] Medical Records Department [address] [place] [address] Instructions for Home/Discharge Instructions 12/27/24 1215 MR#: [id number] Acct: [id number] Name: DEONTE BLANCO Rep #:[id number] : 1955 69 From: Anushka centeno MD PCP: Dr. Preet Farrar, DO Status:HARSHA March [facility] Discharge Instructions Diet Discharge Diet: No restrictions [...] Care Provider: Preet Farrar Instructions Print Language: Citizen [place] Discharge Orders/Prescriptions Prescriptions: New oxycodone-acetaminophen [Percocet] 5-325 [...] pen 20 unit subcut DAILY thyroid (pork) [[place] Thyroid] 30 mg tablet 30 mg PO MOWEFR elderberry fruit 200 mg capsule 1,000 mg PO DAILY Referrals / Follow Up: Preet Farrar DO [Primary Care Provider] - Disposition Disposition (needs filled in before D/C Order can be placed): Home, Self Care 12/27/24 1217<Electronically signed by Anushka Isaac MD>Anushka Isaac MD CC: Dr. Preet Farrar DO ~ Signed [facility] Work Phone: 1(667) 508-138704-01-2025 Consult note Author Mati Ervin [facility] Note Date/Time December 27, 2024 11:1 7am [facility] Medical Records Department [address] [place] [address] Anesthesia Postop Eval II 12/27/24 1116 MR#: [id number] Acct: [id number] Name: SUSANAROSIODEONTE G Rep #:[id number] : 1955 69 From: Mati Ervin MD PCP: Dr. Preet Farrar, DO Status:RE G SDC Y Race: C Location: [place] [address] Anesthesia Postop Eval I Sum Postop Eval Completion status Anesthesia document: Postop Eval 1 completed: Yes Anesthesia Postop Eval I Summary Anesthesia Postop Eval I Summary: Anesthesia Postop Eval I: Assessment Summary Airway patent Yes 12/27/24 10:05 EDITOR [email or web address] Spontaneous unlabored Yes 12/27/24 10:05 EDITOR [email or web address] respirations Mental status Awake,Calm 12/27/24 10:05 EDITOR MAP.GDOTT nausea No 12/27/24 10:05 EDITOR MAP.GDOTT Vomiting No 12/27/24 10:05 EDITOR MAP.GDOTT Anesthesia Postop Eval I: Fluid Summary Crystalloid volume administer 700 12/27/24 10:05 EDITOR MAP.GDOTT (ml) Colloids volume administered ( ml) Blood Product volume administered (ml) Total IV fluid infused 700 12/27/24 10:05 EDITOR MAP.GDOTT Anesthesia Postop Eval I: Summary Notes Anesthesia Complication No 12/27/24 10:05 EDITOR MAP.GDOTT Anesthesia Complication Comment: Post-operative progress note Anesthesia: Postop Eval II Evaluation Mental status: Awake and Calm Pain Level: 2 nausea: No Vomiting: No Complications Anesthesia Complication: No 12/27/24 1117 <Electronically signed by Mati victor MD> Date _ Mati Ervin MD Cosigner Signature: Date CC: ~ Signed [facility] Work Phone: 1(156) 792-742504-01-[address] [facility] Medical Records Department [address] [place] [address] Instructions for Home/Discharge Instructions 12/27/24 1215 MR#: [id number] Acct: [id number] Name: DEONTE BLANCO Rep #:[id number] : 1955 69 From: Anushka centeno MD PCP: Dr. Preet Farrar DO Status:RE G [facility] Discharge Instructions Diet Discharge Diet: No restrictions [...] Care Provider: Preet Farrar Instructions Print Language: Citizen [place] Discharge Orders/Prescriptions Prescriptions: New oxycodone-acetaminophen [Percocet] 5-325 [...] pen 20 unit subcut DAILY thyroid (pork) [[place] Thyroid] 30 mg tablet 30 mg PO MOWEFR elderberry fruit 200 mg capsule 1,000 mg PO DAILY Referrals / Follow Up: Preet Farrar DO [Primary Care Provider] - Disposition Disposition (needs filled in before D/C Order can be placed): Home, Self Care 12/27/24 1217Anushka Isaac MD CC: Dr. Preet Farrar DO ~ Signed [facility]04-01-2025 Procedure note [facility] Medical Records Department [address] [place] [address] Operative Report 12/27/24 1212 MR#: [id number] Acct: [id number] Name: DEONTE BLANCO Rep #:[id number] : 1955 69 From: Anushka centeno MD PCP: Dr. Preet Farrar DO Status:[facility] Location: [place] [address] Problems Associated Problem List Diagnoses (1) Endometrial hyperplasia without atypia: Multi Select Codes Urinary/Genital Urinary/Genital CPT Codes: 03567 TVH <250 gr uterus Operative Report (Standard) Operative Information Date of Procedure: 12/27/24 Pre-Operative Diagnosis: see problem list details Post-Operative Diagnosis: same Surgery/Procedure Performed: total vaginal hysterectomy shiftman: Yes Rand Sewer: Isha Valderrama Tasks completed by agency sales management assistant: Opening & closing and Retracting Type [...] was noted. The vagina was closed with [id number] 0 Vicrylpop offs including the posterior and anterior peritoneum in the reapproximation. Excellent hemostasis was noted. All instruments removed from the vagina clear urine was noted at the end of the procedure. Surgical Findings: nl uterus and ovaries. Complications Complications: No 12/27/24 1215 Cosigner Signature (if applicable): CC: Dr. Preet Farrar DO; Dr. Anushka Isaac MD~ Signed [facility]04-01-2025 Consult note Author Mayrenae Cartwright [facility] Note Date/Time December 27, 2024 10:0 5am [facility] Medical Records Department [address] [place] [address] Anesthesia Postop Eval I 12/27/24 1004 MR#: [id number] Acct: [id number] Name: DEONTE BLANCO Rep #:[id number] : 1955 69 From: May Cartwright PCP: Dr. Preet Farrar DO Status:RE G SDC Y Race: C Location: [place] [address] Anesthesia: Postop Eval I Current Vital Signs [...] Cartwright Cosigner Signature: Date CC: ~ Signed [facility] Work Phone: 1(202) 892-494504-01-2025 Consult note [facility] Medical Records Department [address] [place] [address] Anesthesia Postop Eval II 12/27/24 1116 MR#: [id number] Acct: [id number] Name: DEONTE BLANCO Rep #:[id number] : 1955 69 From: Mati Ervin MD PCP: Dr. Preet Farrar, DO Status: G [facility] Y Race: C Location: [place] [address] Anesthesia Postop Eval I Sum Postop Eval Completion status Anesthesia document: Postop Eval 1 completed: Yes Anesthesia Postop Eval I Summary Anesthesia Postop Eval I Summary: Anesthesia Postop Eval I: Assessment Summary Airway patent Yes 12/27/24 10:05 EDITOR [email or web address] Spontaneous unlabored Yes 12/27/24 10:05 EDITOR [email or web address] respirations Mental status Awake,Calm 12/27/24 10:05 EDITOR MAP.GDOTT nausea No 12/27/24 10:05 EDITOR MAP.GDOTT Vomiting No 12/27/24 10:05 EDITOR MAP.GDOTT Anesthesia Postop Eval I: Fluid Summary Crystalloid volume administer 700 12/27/24 10:05 EDITOR MAP.GDOTT (ml) Colloids volume administered ( ml) Blood Product volume administered (ml) Total IV fluid infused 700 12/27/24 10:05 EDITOR MAP.GDOTT Anesthesia Postop Eval I: Summary Notes Anesthesia Complication No 12/27/24 10:05 EDITOR MAP.GDOTT Anesthesia Complication Comment: Post-operative progress note Anesthesia: Postop Eval II Evaluation Mental status: Awake and Calm Pain Level: 2 nausea: No Vomiting: No Complications Anesthesia Complication: No 12/27/24 1117 valente TURNER> Date _ Mati Ervin MD Cosigner Signature: Date CC: ~ Signed [facility]04-01-2025 Evaluation note* Diagnosis Onset Date Resolution [...] postoperative care noneactive February 06, 2025 10:49am [facility] Work Phone: 1(544) 264-602804-01-2025 Consult note Author Mati Ervin [facility] Note Date/Time December 27, 2024 8:06 am [facility] Medical Records Department [address] [place] [address] Pre-Anesthesia Evaluation 12/27/24 0752 MR#: [id number] Acct: [id number] Name: DEONTE BLANCO Rep #:[id number] : 1955 69 From: Mati Ervin MD PCP: Dr. 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 Hx Hospitalization No 12/13/24 09:23 Any Problems [...] sips of water?: Yes PONV PONV - 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: PONV - 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 Female Yes 12/13/24 09:23 HX of Motion [...] 12/27/24 07:00 Respiratory Assessment Respiratory Assessment - 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: Respiratory Tract Infection Hx - 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 Hx Respiratory Tract Infection No 12/13/24 09:23 STOP Sleep Apnea STOP Sleep Apnea - 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: STOP Sleep Apnea - 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 Hx Hypertension Yes: CONTROLLED WITH MED 12/13/24 [...] 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: 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 Tobacco Use Cigarettes 06/13/24 15:14 Smoking Status Former smoker 12/13/24 09:23 Hx Tobacco Use Yes: marijuana 12/13/24 09:23 Years Smoking Packs Smoked per Day Smoking Cessation Date was Yes - quit smoking within 15 12/13/24 09:23 within the last 15 years years Hx Smoking Cessation Date 10/29/22 12/13/24 09:23 Hx Smoking Cessation No 12/13/24 09:23 Counseling Hematologic Medial History 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: Hematologic 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 assistant Hx of Blood Transfusion No 12/13/24 09:23 [...] confused, unrespo /Reproduction History /Reproductive History - 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: /Reproductive Hx- 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 Hx Now No 12/13/24 09:23 Gestational Age [...] PO MOWEFR 07/21/24 0 12/26/24 08:00 History ([place] Thyroid) glimepiride 2 mg tablet 3 mg [...] MD Cosigner Signature: Date CC: ~ Signed [facility] Work Phone: 1(158) 860-430704-01-2025 Consult note [facility] Medical Records Department [address] [place] [address] Anesthesia Postop Eval I 12/27/24 1004 MR#: [id number] Acct: [id number] Name: DEONTE BLANCO Rep #:[id number] : 1955 69 From: May Cartwright PCP: Dr. Preet Farrar, DO Status:RE G SDC Y Race: C Location: [place] [address] Anesthesia: Postop Eval I Current Vital Signs [...] May Gilbertigner Signature: Date CC: ~ Signed [facility]04-01-2025 History and physical note Author Anushka Isaac [facility] Note Date/Time December 27, 2024 7:22 am [facility] Medical Records Department [address] [place] [address] History & Physical Exam 12/27/24 0721 MR#: [id number] Acct: [id number] Name: DEONTE BLANCO Joaquim Rep #:[id number] : 1955 69 From: Anushka centeno MD PCP: Dr. Preet Farrar, DO Status:[facility] Location: [place] [address] History and Physical Date of Admission: 12/27/24 [...] Reasons: TVHBS Chief Complaint: FU consult medications Butter Printer Required: No Is patient in pain?: No [...] mg PO MOWEFR 07/21/24 12/12/24 Histor y ([place] Thyroid) glimepiride 2 mg tablet 3 mg [...] : No Nurse's Note: FU medication consult [facility] Medical History First degree AV block Abnormal [...] Provider FOB Unknown 1985 Alicia Unknown 1989 Zeoy Unknown 1996 Jeffrey Strange Constitutional: Denies fatigue, [...] no acute distress and welldeveloped Orientation: alert [facility] Head: normal to inspection and normocephalic [...] Farrar DO; Dr. Anushka Isaac MD~ Signed [facility] Work Phone: 1(448) 168-291604-01-2025 Consult note [facility] Medical Records Department [address] [place] [address] Pre-Anesthesia Evaluation 12/27/24 0752 MR#: [id number] Acct: [id number] Name: DEONTE BLANCO Rep #:[id number] : 1955 69 From: Mati Ervin MD PCP: Dr. 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 - 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 Female Yes 12/13/24 09:23 HX of Motion [...] 12/27/24 07:00 Respiratory Assessment Respiratory Assessment - 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: Respiratory Tract Infection Hx - 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 Hx Respiratory Tract Infection No 12/13/24 09:23 STOP Sleep Apnea STOP Sleep Apnea - 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: STOP Sleep Apnea - 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 Hx Hypertension Yes: CONTROLLED WITH MED 12/13/24 [...] 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: 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 Tobacco Use Cigarettes 06/13/24 15:14 Smoking Status Former smoker 12/13/24 09:23 Hx Tobacco Use Yes: marijuana 12/13/24 09:23 Years Smoking Packs Smoked per Day Smoking Cessation Date was Yes - quit smoking within 15 12/13/24 09:23 within the last 15 years years Hx Smoking Cessation Date 10/29/22 12/13/24 09:23 Hx Smoking Cessation No 12/13/24 09:23 Counseling Hematologic Medial History 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: 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 assistant Hx of Blood Transfusion No 12/13/24 09:23 [...] confused, unrespo /Reproduction History /Reproductive History - 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: /Reproductive Hx- 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 Hx Now No 12/13/24 09:23 Gestational Age [...] 12/27/24 08:31 1 mg X1 ONE Administration [facility] Medical History Cardiology follow-up encounter History of [...] PO MOWEFR 07/21/24 0 12/26/24 08:00 History ([place] Thyroid) glimepiride 2 mg tablet 3 mg [...] MD Cosigner Signature: Date CC: ~ Signed [facility]04-01-2025 History and physical note [facility] Medical Records Department [address] [place] [address] History & Physical Exam 12/27/24 0721 MR#: [id number] Acct: [id number] Name: DEONTE BLANCO Rep #:[id number] : 1955 69 From: Anushka centeno MD PCP: Dr. Preet Farrar, DO Status:[facility] Location: [place] [address] History and Physical Date of Admission: 12/27/24 [...] Reasons: TVHBS Chief Complaint: FU consult medications Butter Printer Required: No Is patient in pain?: No [...] mg PO MOWEFR 07/21/24 12/12/24 Histor y ([place] Thyroid) glimepiride 2 mg tablet 3 mg [...] : No Nurse's Note: FU medication consult [facility] Medical History First degree AV block Abnormal [...] no acute distress and welldeveloped Orientation: alert [facility] Head: normal to inspection and normocephalic [...] Farrar DO; Dr. Anushka Isaac MD~ Signed [facility]04-01-2025 [facility] Medical Records Department [address] [place] [address] History Physical Exam 12/27/24720 MR#: [id number] Acct: [id number] Name: DEONTE BLANCO Rep #: [id number] : 1955 69 From: Anushka Isaac MD PCP: Dr. Preet Farrar DO Status:[facility] Location: [place] [address] History and Physical Date of Admission: 12/27/24 [...] Reasons: TVHBS Chief Complaint: FU consult medications Butter Printer Required: No Is patient in pain?: No [...] 30 mg PO MOWEFR 07/21/24 12/12/24 History ([place] Thyroid) glimepiride 2 mg tablet 3 mg [...] : No Nurse's Note: FU medication consult [facility] Medical History First degree AV block Abnormal [...] appointment. she has endometrial (more content not included)...[facility]03-26-2025 Telephone encounter Note* Telephone Encounter - Donna Kimble MA - 12/21/2024 10:49 AM EDT No PA needed covered. Called [employer] and spoke to [employer] who did for brand lantus and is covered. Patient was notified Donna Kimble MA [facility]03-26-2025 Miscellaneous Notes* Telephone Encounter - Donna Kimble MA - 12/21/2024 10:49 AM EDT No PA needed covered. Called [employer] and spoke to [employer] who did for brand lantus and is covered. Patient was notified Donna Kimble MA * Telephone Encounter - Chelo Prasad RN - 12/21/2024 9:12 AM EDT Patient calling in and states she needs a prior authorization for her lantus insulin, as ordered 10/07/24, per [facility]. Prior authorization requested for the following medication: Medication: insulin glargine (lantus solostar) 100 unit/mL Provider: Dr. Farrar Insurance Company Name: [facility] Medicare Pharmacy Name: [facility] Telephone number: [phone] Please call patient once an update has been received. Chelo Prasad RN documented in this encounterReg[facility]03-26-2025 Telephone encounter Note * Telephone Encounter - Chelo Prasad RN - 12/21/2024 9:12 AM EDT Patient calling in and states she needs a prior authorization for her lantus insulin, as ordered 10/07/24, per [facility]. Prior authorization requested for the following medication: Medication: insulin glargine (lantus solostar) 100 unit/mL Provider: Dr. Farrar Insurance Company Name: [facility] Medicare Pharmacy Name: [facility] Telephone number: [phone] Please call patient once an update has been received. Chelo Prasad RN [facility]03-24-2025 Telephone encounter Note* Telephone Encounter - Annmarie Canada RN - 12/19/2024 5:57 PM EDT Pt called and is notified of providers message and instructions. Pt voices understanding. She will call OBGYNs office to see how long she wants her to hold it. Annmarie Canada RN [facility]03-24-2025 Miscellaneous Notes* Telephone Encounter - Annmarie Canada [...] hold Plavix. Patient requests call back at [phone]. Josie Starks RN documented in this encounterRegency Hospital [facility]03-24-2025 Telephone encounter Note * Telephone Encounter - Preet Farrar DO - 12/19/2024 5:08 PM EDT Okay to hold Plavix for 3-5 days, depending on surgeon preference Preet Farrar DO [facility]03-24-2025 Telephone encounter Note* Telephone Encounter - Josie Starks RN - 12/19/2024 2:49 PM EDT Patient calls to ask about holding Plavix for upcoming hysterectomy. Patient reports Dr. Isaac was leaning towards holding medication for 3 days but wanted patient to check with PCP to verify the length of time provider would recommend that she hold Plavix. Patient requests call back at [phone]. Josie Starks RN [facility]03-19-2025 Telephone encounter Note* Telephone Encounter - Jacqueline Candelario APRN.CNP - 12/14/2024 5:40 PM EDT The following approved medication requests have been transmitted electronically. Requested Prescriptions Signed Prescriptions Disp Refills dulaglutide (TRULICITY) 0.75 mg/0.5 mL pen injector 6 mL 2 Sig: Inject 0.75 mg subcutaneously one time a week. Authorizing Provider: JACQUELINE CANDELARIO APRN.CNP [facility]03-19-2025 Miscellaneous Notes* Telephone Encounter - Jacqueline Candelario [...] PM EDT [facility] Insurance won't pay for Victoza. * Telephone Encounter - Jacqueline Candelario APRN.CNP - 12/14/2024 5:12 PM EDT Ok to use generic form. Yes, I would wait to start new medication until after recovery of surgery. Thank you, Jacqueline Candelario APRN.DRAW FIRE OPERATOR * Telephone Encounter - Chelo Prasad RN [...] reply. Chelo Prasad RN documented in this encounterRegency Hospital [facility]03-19-2025 Telephone encounter Note * Telephone Encounter - Sahara Mejia LPN - 12/14/2024 5:36 PM EDT Pt. [facility] Insurance won't pay for Victoza. [facility]03-19-2025 Telephone encounter Note* Telephone Encounter - Jacqueline Candelario APRN.CNP - 12/14/2024 5:12 PM EDT Ok to use generic form. Yes, I would wait to start new medication until after recovery of surgery. Thank you, Jacqueline Candelario APRN.DRAW FIRE OPERATOR [facility]03-19-2025 Telephone encounter Note* Telephone Encounter - Chelo [...] call patient with reply. Chelo Prasad RN [facility]03-19-2025 NoteHNO ID: [id number] Author: PREET FARRAR, DO Service: ? Author [...] tablet by mouth ever (more content not included)...[facility]03-19-2025 History of Present illness Narrative* Preet [...] morning on fasting at 8 am Insulin [place], Disposable, (BD ULTRA-FINE MARIA T PEN NEEDLE) [...] potential BSO by Dr. Isaac for upcoming PURCHASING ASSOCIATE surgery Preet Farrar DO To ER if develops chest pain, shortness of breath, or severe worsening of symptoms. Discussed risks, benefits, alternatives, and potential side effects of medications. Patient expressed understanding and agreed with the plan. Preet Farrar DO [address] [place] [address] documented in this encounterRegency Hospital [facility]03-19-2025 Instructions* Patient Instructions* Preet Farrar DO - 12/14/2024 11:45 AM EDT Start the Victoza 0.6 mg once a day for blood sugar control Stop the Januvia when you start this for your diabetes documented in this encounterRegency Hospital [facility]03-17-2025 Evaluation note* Diagnosis Onset Date Resolution Status [...] postoperative care noneactive February 06, 2025 10:49am [facility] Work Phone: 1(936) 817-192903-06-2025 Telephone encounter Note* Telephone Encounter - Yesi [...] Kitchen RN December 01, 2024 11:26 AM [facility]03-06-2025 Miscellaneous Notes* Telephone Encounter - Yesi Kitchen [...] 01, 2024 11:26 AM documented in this encounterRegency Hospital [facility]03-04-2025 Telephone encounter Note * Telephone Encounter - [...] Coffey RN November 29, 2024 12:13 PM [facility]03-04-2025 Miscellaneous Notes* Telephone Encounter - Suzanna Coffey [...] 29, 2024 12:13 PM documented in this encounterRegency Hospital [facility]02-14-2025 Instructions* Patient Instructions* Bean Isaac MD - [...] hor ones are abnormal documented in this encounterRegency Hospital [facility]02-14-2025 NoteHNO ID: [id number] Author: MADIE BRUCE MA Service: ? Author Type: Veterinary Receptionist Type: Progress Notes Filed: 11/11/2024 18:16 Note Text:[facility]02-14-2025 History of Present illness Narrative* Madie [...] carbs . 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 Bean Isaac MD Endocrinology Associate Staff [facility] [place] [phone] Medical Decision Making: Medical Decision Making Level: 1 - N/A documented in this encounterRegency Hospital [facility]02-14-2025 NoteHNO ID: [id number] Author: BEAN ISAAC MD Service: ? Author [...] carbs . Lifestyle -Exercise: 30 mins on [employer] daily -Diet: Breakfast: 3 eggs, 1 slice [...] sweating, flushing, darkening o (more content not included)...[facility] 11-01-2024 Telephone encounter Note* Telephone Encounter [...] Ulloa LPN November 01, 2024 8:03 AM [facility]02-04-2025 Miscellaneous Notes* Telephone Encounter - Fernanda Ulloa [...] 01, 2024 8:03 AM documented in this encounterRegency Hospital [facility]01-11-2025 NoteHNO ID: [id number] Author: PREET FARRAR, DO Service: ? Author Type: Physician Type: Progress Notes Filed: 10/08/2024 08:39 Note Text: Patient presents with: Medicare Wellness Exam HPI: Deonte Blanco is a 69 year old female who presents to the office today for review of health conditions. Concerns today: She is starting to see Microfilm Duplicating Unit Supervisor for opinion regarding her thyroid and fatigue [...] by mouth once daily. blood sugar diagnostic (TrapsterTOUCH VERIO TEST STRIPS) test strip Test blood sugar(s) 4 times daily. Dx: Type 2 DM - Uncontrolled E11.65 Insulin: Yes dexAMETHasone (DECADRON) 1 mg tablet (more content not included)...[facility]01-11-2025 History of Present illness Narrative* Preet Farrar DO - 10/08/2024 8:34 AM EST Patient presents with: Medicare Wellness Exam HPI: Deonte Blanco is a 69 year old female who presents to the office today for review of health conditions. Concerns today: She is starting to see Microfilm Duplicating Unit Supervisor for opinion regarding her thyroid and fatigue [...] morning on fasting at 8 am Insulin [place], Disposable, (BD ULTRA-FINE MARIA T PEN NEEDLE) [...] 249.80, ICD10: E08.69 See above F/u with Microfilm Duplicating Unit Supervisor as scheduled. 5. Hypothyroidism, unspecified type - [...] with the plan. Preet Farrar DO [address] [place] [address] * Preet Farrar DO - 10/08/2024 8:33 [...] provided Preet Farrar DO documented in this encounterRegency Hospital [facility]01-11-2025 NoteHNO ID: [id number] Author: PREET FARRAR DO Service: ? Author [...] - Personalized prevention plan provided Preet Farrar [facility]01-07-2025 Telephone encounter Note* Telephone Encounter - Sahara Mejia LPN - 10/04/2024 9:29 AM EST Pt. informed. [facility] Work Phone: 1(932) 596-729001-07-2025 Miscellaneous Notes* Telephone Encounter - Sahara Mejia [...] checked Thank you ! documented in this encounterRegency Hospital [facility]01-07-2025 Telephone encounter Note * Telephone Encounter - Marika Carolina PA-C - 10/04/2024 9:00 AM EST Labs ordered Marika Carolina PA-C 10/04/2024 [facility]01-07-2025 Telephone encounter Note* Telephone Encounter - Donna Kimble MA - 10/04/2024 7:47 AM EST Please see patient request she had blood work done 05/21 Donna Kimble MA [facility]01-07-2025 Telephone encounter Note* Telephone Encounter - Maegan Winters - 10/04/2024 7:30 AM EST Pt came in requesting lab work prior to her 10/07 tex, pt wants routine labs and her thyroid checked Thank you ! [facility]12-17-2024 Telephone encounter Note* Telephone Encounter - Preet Farrar DO - 09/13/2024 4:24 PM EST Noted Preet Farrar DO [facility]12-17-2024 Miscellaneous Notes* Telephone Encounter - Preet Farrar DO - 09/13/2024 4:24 PM EST Noted Preet Farrar DO * Telephone Encounter - Sahara Mejia LPN - 09/12/2024 1:17 PM EST Pt. dropped of glucose numbers for Dr. Farrar to review. documented in this encounterRegency Hospital [facility]12-17-2024 Evaluation note* Diagnosis Onset Date Resolution Status [...] 8:20am Renal artery stenosis chronic Dec 8:20am [facility] Work Phone: [phone]) 690-155312-16-2024 Telephone encounter Note* Telephone Encounter - Sahara Mejia LPN - 09/12/2024 1:17 PM EST Pt. dropped of glucose numbers for Dr. Farrar to review. [facility] Work Phone: 1(239) 651-837512-06-2024 Telephone encounter Note* Telephone Encounter - Yesi [...] daily. Yesi Kitchen RN 2024 11:04 AM [facility]12-06-2024 Miscellaneous Notes* Telephone Encounter - Yesi Kitchen [...] RN 2024 11:04 AM documented in this encounterRegency Hospital [facility]11-14-2024 Telephone encounter Note * Telephone Encounter - [...] Nevarez LPN August 11, 2024 2:26 PM [facility]11-14-2024 Miscellaneous Notes* Telephone Encounter - Kerry Nevarez [...] 11, 2024 2:26 PM documented in this encounterRegency Hospital [facility]11-14-2024 Instructions* Patient Instructions* Bean Isaac MD - [...] for diabetes for now documented in this encounterRegency Hospital [facility]11-14-2024 NoteHNO ID: [id number] Author: BEAN ISAAC MD Service: ? Author [...] ablation for Grave's disease (more content not included)...[facility]11-14-2024 History of Present illness Narrative* Bean [...] pill . Lifestyle -Exercise: 30 mins on [employer] daily -Diet: Breakfast: 3 eggs, 1 slice [...] mouth once daily. 30 tablet 2 Insulin [place], Disposable, (BD ULTRA-FINE MARIA T PEN NEEDLE) [...] 2 DM with macrovascular complications and current usp insulin use -A1c 6.5% on 01/06/2024, 7.2% [...] Isaac MD Endocrinology Associate Staff [facility] [place] [phone] Medical Decision Making: Problems: Moderate: 1+ chronic illnesses with change Data: Unique test result(s) reviewed: 3+ Independent interpretation of test from other physician/QHCP Risk: Moderate: Moderate risk from testing/treatment Medical Decision Making Level: 4 - Moderate documented in this encounterRegency Hospital [facility]11-12-2024 NoteHNO ID: [id number] Author: JACKSON SARAVIA MA Service: ? Author Type: Veterinary Receptionist Type: Progress Notes Filed: 08/09/2024 12:51 Note Text: POPULATION HEALTH NAVIGATION OUTREACH Action/August 09, 2024 AWV INITIATIVE Reason for Outreach Care Gap/HCC or Scheduling Wellness Visits Care Gaps due: Medicare Annual Wellness Visit Patient Contacted: Unable or unnecessary to reach patient: Flipped existing appointment Updated appointment notes Navigation Signature: Jackson Saravia MA August 09, 2024 12:51 [facility]11-12-2024 History of Present illness Narrative* Jackson Saravia [...] 09, 2024 12:51 PM documented in this encounterRegency Hospital [facility]11-12-2024 NotePatient Outreach (NETNAV) FRANCISDEONTE G ([id number]) 1955 F Date Time Provider Department 08/09/24 [...] tablet by mouth once daily. - Insulin [place], Disposable, (BD ULTRA-FINE MARIA T PEN NEEDLE) [...] 03/23/2024 Encounter Status:Closed by JACKSON SARAVIA on 08/09/24[facility] 07-26-2024 [facility] Medical Records Department [address] [place] [id number] History Physical Exam 07/26/24 0645 MR#: [id number] Acct: [id number] Name: DEONTE BLANCO Rep #: [id number] : 1955 68 From: Anushka Isaac MD PCP: Dr. Preet Farrar, DO Status:[facility] Location: [place] [address] History and Physical Intake Vital Signs 07/07/2413:26 07/19/2407:53 Height 5 ft 5 ft Weight: 178 lb 177 lb BMI 34.7 34.5 BP 171/77 H 155/64 H Blood Pressure Location Lt brachial Position Sitting Pulse 70 Pulse Source Monitor Intake Visit Reasons: D C possible hysteroscopy Chief Complaint: surgical consult atypica cells on EMB- non cancerous Butter Printer Required: No Is patient in pain?: No [...] Unknown 1996 Jeffrey Dalton (more content not included)...[facility]10-28-2024 Telephone encounter Note* Telephone Encounter - Adelita Gomez MA - 07/25/2024 4:48 PM EDT Pt notified. Adelita Gomez MA [facility]10-28-2024 Miscellaneous Notes* Telephone Encounter - Adelita Gomez [...] 18 units once a day SQ Preet Farrra DO * Telephone Encounter - Lisa Aparicio [...] Patient is having DNC done on 07/26/2024. [facility] had faxed over surgical clearance form on 07/19/2024. This is on provider's desk. Patient is very worried about her blood sugars. * Telephone Encounter - Sahara Mejia LPN - 07/15/2024 10:55 AM EDT Blood Sugar results brought in by patient.Placed on Dr. Farrar desk. documented in this encounterRegency Hospital [facility]10-28-2024 Telephone encounter Note * Telephone Encounter - Preet Farrar DO - 07/25/2024 4:35 PM EDT Noted, would still recommend increased dose of lantus as below Preet Farrar DO [facility]10-28-2024 Telephone encounter Note* Telephone Encounter - Sahara Mejia LPN - 07/25/2024 10:55 AM EDT Forms faxed as below. [facility]10-28-2024 Miscellaneous Notes* Telephone Encounter - Sahara Coulter LPN - 07/25/2024 10:55 AM EDT Forms faxed as below. * Telephone Encounter - Chelo Prasad RN - 07/25/2024 10:48 AM EDT Lali at [facility] called again regarding this pt. Pt is to have procedure tomorrow and they are asking if Dr. Farrar's office received surgical clearance forms last week-they are in need of them being completed. Asking if someone can call them today with an update on the forms. Call Lali at [phone]. Chelo Prasad RN * Telephone Encounter - Sahara Mejia LPN - 07/19/2024 4:31 PM [address]T Form on Dr. Farrar's desk * Telephone Encounter - Annmarie Canada RN - 07/19/2024 11:27 AM EDT Lali with [facility] called in and reports she had faxed over the surgical clearance form on 07/15/24. I let them know it wasn't charted that they had received it, so she is goingto send it again. Pt is going to have a DNC on 07/26/24, please fill out and fax back. Faxed recentthyroid labs and labs from April to [phone]. Let them know the other recent labs were external, and they would have to get them from [facility]. documented in this encounterRegency Hospital [facility]10-28-2024 Telephone encounter Note * Telephone Encounter - Chelo Prasad RN - 07/25/2024 10:48 AM EDT Lali at [facility] called again regarding this pt. Pt is to have procedure tomorrow and they are asking if Dr. Farrar's office received surgical clearance forms last week-they are in need of them being completed. Asking if someone can call them today with an update on the forms. Call Lali at [phone]. Chelo Prasad RN [facility]10-28-2024 Telephone encounter Note* Telephone Encounter - Sahara Mejia LPN - 07/25/2024 9:55 AM EDT Pt. increased Amaryl to 3 mg. didn't feel it was working. Pt. feels it has been a few points lower around 150's to 160's [facility]10-26-2024 Telephone encounter Note* Telephone Encounter - Preet Farrar DO - 07/23/2024 11:33 AM EDT Does she need a refresher for nutrition or diabetes education? Increase lantus to 18 units once a day SQ Preet Farrar DO [facility]10-24-2024 Telephone encounter Note* Telephone Encounter - Lisa Aparicio RN - 07/21/2024 8:18 AM EDT Patient notified of results and provider's instructions. Patient verbalizes understanding. Lisa Aparicio RN [facility]10-24-2024 Miscellaneous Notes* Telephone Encounter - Lisa Aparicio [...] tablet Preet Farrar DO documented in this encounterRegency Hospital [facility] West10-24-2024 Telephone encounter Note * Telephone Encounter - [...] having DNC done on 07/26/2024. [facility] had faxed over surgical clearance form on 07/19/2024. This is on provider's desk. Patient is very worried about her blood sugars. [facility]10-23-2024 Telephone encounter Note* Telephone Encounter - Preet [...] hormone in this tablet Preet Farrar DO [facility]10-22-2024 Telephone encounter Note* Telephone Encounter - Sahara Mejia LPN - 07/19/2024 4:31 PM EDT Form on Dr. Farrar's desk [facility]10-22-2024 Telephone encounter Note* Telephone Encounter - Annmarie Canada RN - 07/19/2024 11:27 AM EDT Lali with [facility] called in and reports she had faxed over the surgical clearance form on 07/15/24. I let them know it wasn't charted that they had received it, so she is goingto send it again. Pt is going to have a DNC on 07/26/24, please fill out and fax back. Faxed recentthyroid labs and labs from April to [phone]. Let them know the other recent labs were external, and they would have to get them from [facility]. [facility]10-18-2024 Telephone encounter Note* Telephone Encounter - Sahara Mejia LPN - 07/15/2024 10:55 AM EDT Blood Sugar results brought in by patient.Placed on Dr. Farrar desk. [facility]09-20-2024 Telephone encounter Note* Telephone Encounter - Suzanna Coffey RN - 06/17/2024 11:42 AM EDT Patient reports [facility] ER prescribed her pantoprazole 40 mg daily, about a month ago, and she needs refills, only has 5 pills left. States she forgot to tell pcp about this at her recent appt. Last ov with pcp: 06-14-24 Next ov: 10-07-24 [facility]09-20-2024 Miscellaneous Notes* Telephone Encounter - Suzanna Coffey RN - 06/17/2024 11:42 AM EDT Patient reports [facility] ER prescribed her pantoprazole 40 mg daily, about a month ago, and she needs refills, only has 5 pills left. States she forgot to tell pcp about this at her recent appt. Last ov with pcp: 06-14-24 Next ov: 10-07-24 documented in this encounterRegency Hospital [facility]09-18-2024 Telephone encounter Note * Telephone Encounter - Kerry Nevarez LPN - 06/15/2024 9:53 AM EDT Patient calling asking to have another pen needle rx, she called pharmacy since other rx was causing so much bruising for her. Pending new rx to file to [facility] pharmacy. Please advise The patient has been [...] Requested Prescriptions Pending Prescriptions Disp Refills Insulin [place], Disposable, (BD ULTRA-FINE MARIA T PEN NEEDLE) 32 gauge x 5/32 100 Each 11 Sig: Use one needle for each dose. 1/day. Kerry Nevarez LPN June 15, 2024 9:58 AM [facility]09-18-2024 Miscellaneous Notes* Telephone Encounter - Kerry Nevarez LPN - 06/15/2024 9:53 AM EDT Patient calling asking to have another pen needle rx, she called pharmacy since other rx was causing so much bruising for her. Pending new rx to file to [facility] pharmacy. Please advise The patient has been [...] Requested Prescriptions Pending Prescriptions Disp Refills Insulin [place], Disposable, (BD ULTRA-FINE MARIA T PEN NEEDLE) 32 gauge x 5/32 100 Each 11 Sig: Use one needle for each dose. 1/day. Kerry Nevarez LPN June 15, 2024 9:58 AM documented in this encounterRegency Hospital [facility]09-17-2024 NoteHNO ID: [id number] Author: PREET FARRAR, DO Service: ? Author [...] thickened endometrial lining. Has been seen by PURCHASING ASSOCIATE and had EMB and will be having a consult with Dr. Froylan Farnsworth PURCHASING ASSOCIATE on 07/07 to potentially schedule MEREDITH. She [...] 1 tablet by mouth once daily. Insulin [place], Disposable, (PEN NEEDLE) 29 gauge x 1/2 Use one needle per dose. 1 per day glimepiride (AMARYL) 2 mg tablet Take 1 tablet by mouth two times a day with meals. SITagliptin phosphate (JANUVIA) 100 mg tablet Take 1 tablet by mouth once daily. carvedilol (COREG) 6.25 mg tablet Take 1 tablet by mouth two times a day with (more content not included)...[facility]09-17-2024 History of Present illness Narrative* Preet [...] thickened endometrial lining. Has been seen by PURCHASING ASSOCIATE and had EMB and will be having a consult with Dr. Froylan Farnsworth PURCHASING ASSOCIATE on 07/07 to potentially schedule MEREDITH. She [...] 1 tablet by mouth once daily. Insulin [place], Disposable, (PEN NEEDLE) 29 gauge x 1/2 [...] expressed understanding and agreed with the plan. Peret Farrar DO [address] [place] [address] documented in this encounterRegency Hospital [facility]08-28-2024 History of Present illness Narrative* Catalina Young APRN.DRAW FIRE OPERATOR - 05/25/2024 2:40 PM EDT 05/25/2024 Patient presents with: ER F/U: 05/22/[address] [facility] for left lower quadrant pain SUBJECTIVE: This is a 68 year old that is here today for Above Complaints. HOSPITAL/ER FOLLOW UP: Reason for visit: abdominal pain Which facility: [facility] Date of visit: 05/22/2024 Diagnosis: endometrial [...] 1 tablet by mouth once daily. Insulin [place], Disposable, (PEN NEEDLE) 29 gauge x 1/2 [...] by Catalina Young APRN.DEREK - follow-up with PURCHASING ASSOCIATE and PCP Catalina Young APRN.DRAW FIRE OPERATOR Prescription instructions reviewed with patient as applicable. [...] Level: 4 - Moderate documented in this encounterRegency Hospital [facility]08-26-2024 Telephone encounter Note * Telephone Encounter - [...] Coffey RN May 23, 2024 1:16 PM [facility]08-26-2024 Miscellaneous Notes* Telephone Encounter - Suzanna Coffey [...] 23, 2024 1:16 PM documented in this encounterRegency Hospital [facility]08-26-2024 Telephone encounter Note * Telephone Encounter - Fernanda Ulloa LPN - 05/23/2024 9:31 AM EDT Pt called in and was seen in the [facility] ER last night 05-22-24 for left side abdominal pain. Pt had a CT done. Showed thickened endometrial lining of 1/4 cm no other acute findings. pt's provider/team not available. Pt scheduled with provider. Fernanda Ulloa LPN [facility]08-26-2024 Miscellaneous Notes* Telephone Encounter - Fernanda Ulloa LPN - 05/23/2024 9:31 AM EDT Pt called in and was seen in the [facility] ER last night 05-22-24 for left side abdominal pain. Pt had a CT done. Showed thickened endometrial lining of 1/4 cm no other acute findings. pt's provider/team not available. Pt scheduled with provider. Fernanda Ulloa LPN documented in this encounterRegency Hospital [facility]08-13-2024 Instructions* Patient Instructions* Bean Isaac MD - 05/10/2024 2:25 PM EDT Please continue the same dose of medication for now- please bring log next time documented in this encounterReg[facility] Telephone encounter Note * Telephone Encounter - Sahara Mejia LPN - 05/10/2024 2:05 PM EDT Pt. dropped of Bp readings. Placed on Dr. Farrar's desk. [facility] Work Phone: 1(836) 471-436208-13-2024 Miscellaneous Notes* Telephone Encounter - Sahara Mejia LPN - 05/10/2024 2:05 PM EDT Pt. dropped of Bp readings. Placed on Dr. Farrar's desk. documented in this encounterRegency Hospital [facility]08-13-2024 History of Present illness Narrative* Bean Isaac [...] awareness: n/a Lifestyle -Exercise: 30 mins on [employer] daily -Diet: Breakfast: 3 eggs, 1 slice [...] Outpatient Medications Medication Sig Dispense Refill Insulin [place], Disposable, (PEN NEEDLE) 29 gauge x 1/2 [...] 100 Each 11 flash glucose scanning reader (Barcol Air USASTYLE TARA 2 READER) 1 Device as directed. 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 Bean Isaac MD Endocrinology Associate Staff [facility]ology [facility] Metabolism [place] [phone] Medical Decision Making: Problems: Moderate: 1+ chronic illnesses with change Data: Unique test result(s) reviewed: 3+ Independent interpretation of test from other physician/QHCP Medical Decision Making Level: 4 - Moderate documented in this encounterRegency Hospital [facility]07-23-2024 Miscellaneous Notes* Telephone Encounter - Sahara Mejia [...] off. Lisa Aparicio RN documented in this encounterRegency Hospital [facility]07-23-2024 Telephone encounter Note * Telephone Encounter - Sahara Mejia LPN - 04/19/2024 4:56 PM EDT Pt. informed. [facility]07-23-2024 Telephone encounter Note* Telephone Encounter - Preet Farrar DO - 04/19/2024 4:49 PM EDT Ok to take the Lantus in the AM or the PM, whichever she will be consistent with daily. Increase dose to 12 units and notify in 2-3 weeks her blood glucose readings. They are improving Preet Farrar DO [facility]07-23-2024 Telephone encounter Note* Telephone Encounter - Yesi [...] sugars pt has already brought in too. [facility]07-16-2024 Telephone encounter Note* Telephone Encounter - Sofia Rodriguez MA - 04/12/2024 4:04 PM EDT Glucose readings on JG desk. Will await new glucose readings. Sofia Rodriguez MA [facility]07-16-2024 Telephone encounter Note* Telephone Encounter - Lisa [...] she previously dropped off. Lisa Aparicio RN [facility]06-26-2024 Telephone encounter Note* Telephone Encounter - Donna Kimble MA - 03/23/2024 10:47 AM EDT Patient was notified Donna Kimble MA [facility]06-26-2024 Miscellaneous Notes* Telephone Encounter - Donna Kimble MA - 03/23/2024 10:47 AM EDT Patient was notified Donna Kimble MA * Telephone Encounter - Preet Farrar DO - 03/23/2024 7:54 AM EDT Needs to increase her armor thyroid to 120 mg 7 days a week Preet Farrar DO * Telephone Encounter - Annmarie Candaa RN - 03/22/2024 4:53 PM EDT Please [...] Requested Prescriptions Signed Prescriptions Disp Refills Insulin [place], Disposable, (PEN NEEDLE) 29 gauge x 1/2 [...] Needs an Rx. Pt uses [facility] in [place]. Gretchen Dorantes LPN * Telephone Encounter - Preet Farrar DO - 03/22/2024 7:27 AM EDT Please inform patient that her free t4 level is low. TSH is stable. What does of armour thyroid supplement is she taking? Any missed doses? /Preet Farrar DO documented in this encounterRegency Hospital [facility]06-26-2024 Telephone encounter Note * Telephone Encounter - Preet Farrar DO - 03/23/2024 7:54 AM EDT Needs to increase her armor thyroid to 120 mg 7 days a week Preet Farrar DO [facility]06-25-2024 Telephone encounter Note* Telephone Encounter - Annmarie [...] missed any doses.. Please call and advise. [facility]-25-[facility]24 Telephone encounter Note* Telephone Encounter - Preet Farrar DO - 03/22/2024 4:45 PM EDT The following approved medication requests have been transmitted electronically. Requested Prescriptions Signed Prescriptions Disp Refills Insulin [place], Disposable, (PEN NEEDLE) 29 gauge x 1/2 100 Each 11 Sig: Use one needle per dose. 1 per day Authorizing Provider: PREET FARRAR DO [facility]06-25-2024 Telephone encounter Note* Telephone Encounter - Annmarie [...] list. Pt needs needles by tomorrow morning. [facility]06-25-[facility] Telephone encounter Note* Telephone Encounter - Gretchen [...] Needs an Rx. Pt uses [facility] in [place]. Gretchen Dorantes LPN [facility]06-25-2024 Telephone encounter Note* Telephone Encounter - Preet Farrar DO - 03/22/2024 7:27 AM EDT Please inform patient that her free t4 level is low. TSH is stable. What does of armour thyroid supplement is she taking? Any missed doses? /Preet Farrar DO T [facility]06-24-[facility] History of Present illness Narrative* Preet Farrar [...] GI upset. When she was seen at [facility] for hyperglycemia and fatigue as well [...] managing myla Farrar DO documented in this encounterRegency Hospital [facility] West06-13-2024 History of Present illness Narrative* Suzanna Coffey RN - 03/10/2024 1:20 PM EDT Patient is scheduled for Hosp f/u with Dr. Farrar on 03-21-24. * Jacqueline Candelario APRN.CNP - 03/10/2024 12:24 PM EDT Please make appointment. Thank you, Jacqueline Candelario APRN.DRAW FIRE OPERATOR * Suzanna Coffey RN - 03/10/2024 8:06 AM EDT TRANSITION CARE MANAGEMENT (TCM) INITIAL CONTACT Veterinary Receptionist Outreach Provider Action/FYI: Patient would like to discuss ozempic- concern hospital stopping it- and what to do about her DM. Initial contact with patient post discharge, spoke to patient. Patient identified by name and . TRANSITION CARE MANAGEMENT INITIAL OUTREACH DOCUMENTATION: 03/10/2024 Date of Outreach: Outreach Attempt 1: Contact Made Date of Discharge 03/09/2024 SUMMARY: -Pt discharged from [facility] on 03-09-24. -Admitted for: Gastrointestinal possibly [...] from recent hospitalization: Epic documented in this encounterRegency [facility]06-03-2024 Telephone encounter Note * Telephone Encounter - [...] Please advise. Thank you. Neva Thomas LPN. [facility]06-03-2024 Miscellaneous Notes* Telephone Encounter - Neva Thomas [...] you. Neva Thomas LPN. documented in this encounterRegency Hospital [facility]05-20-2024 Telephone encounter Note * Telephone Encounter - Latosha Osei RN - 02/15/2024 4:32 PM EDT Spoke with patient. Given message from provider's office. Patient verbalizes understanding. Latosha Osei RN [facility]05-20-2024 Miscellaneous Notes* Telephone Encounter - Latosha Osei [...] normal. No concerns. Thank you, Jacqueline Candelario APRN.DRAW FIRE OPERATOR * Telephone Encounter - Latosha Osei RN [...] recommendations. Latosha Osei RN documented in this encounterRegency Hospital [facility]05-20-2024 Telephone encounter Note * Telephone Encounter - Jacqueline Candelario APRN.CNP - 02/15/2024 4:28 PM EDT No dietary restrictions needed -- she eats very healthy to begin with. Elevation after meals is expected and normal. No concerns. Thank you, Jacqueline Candelario APRN.DEREK [facility]05-20-2024 Telephone encounter Note* Telephone Encounter - Latosha [...] Asking for dietary recommendations. Latosha Osei, RN [facility]05-07-2024 Telephone encounter Note* Telephone Encounter - Annmarie [...] advise. Thank you. Annmarie Canada RN. T [facility]05-07-2024 Miscellaneous Notes* Telephone Encounter - Annmarie Canada [...] you. Annmarie Canada RN. documented in this encounterRegency Hospital [facility]05-01-2024 History of Present illness Narrative* Jacqueline Candelario APRN.DRAW FIRE OPERATOR - 01/27/2024 10:56 AM EDT Chief Complaint [...] agreeable to treatment plan. Jacqueline Corbin APRN.DEREK [address] [place] [address] documented in this encounterRegency Hospital [facility]04-17-2024 Miscellaneous Notes* Telephone Encounter - Kerry Nevarez LPN - 01/13/2024 2:48 PM EDT Patient returned call and went over notes below from Jacqueline Candelario QUOTATION CHECKER with understanding. Aware rx sent to pharmacy. [...] yeast infection on 01/01 from [facility]. Now she has same symptoms itching and white vaginal drainage. Patient now wondering if it is from taking Jardiance. Patient said her blood sugars have been higher in the morning at times. She said she is taking Ozempic and Jardiance. Patient uses [facility] for her pharmacy. Please advise documented in this encounterRegency Hospital [facility]04-10-2024 History of Present illness Narrative* Jacqueline Candelario APRN.DRAW FIRE OPERATOR - 01/06/2024 11:00 AM EDT Chief Complaint [...] encouraged pt to consider speaking with a supervisor picking crew/packaging sales consultant to discuss diet management, if agreeable. [...] day with meals. flash glucose scanning reader ([employer] TARA 2 READER) 1 Device as directed. [...] Patient agreeable to treatment plan. Jacqueline Corbin APRN.DRAW FIRE OPERATOR [address] [place] [address] documented in this encounterRegency Hospital [facility] West04-10-2024 Miscellaneous Notes* Telephone Encounter - Jacqueline Candelario [...] encouraged pt to consider speaking with a supervisor picking crew/packaging sales consultant to discuss diet management, if agreeable. Patient would rather hold off on speaking with a specialist as of this time. Asking if Dr. Farrarwould be able to advise her at this time? Thank you. documented in this encounterRegency Hospital [facility]04-10-2024 Miscellaneous Notes* Telephone Encounter - Fernanda Ulloa [...] you. Fernanda Ulloa LPN. documented in this encounterRegency Hospital [facility]04-07-2024 Miscellaneous Notes* Telephone Encounter - Altagracia Welch APRN.DRAW FIRE OPERATOR - 01/03/2024 8:03 AM EDT Patient identified by name and date of . Patient advised of + yeast and BV test result. She was prescribed diflucan at yesterday's visit. I sent Rx for Flagyl to her pharmacy today. Altagracia Welch APRN.DEREK documented in this encounterRegency Hospital [facility] West04-06-2024 History of Present illness Narrative* Jemima Iyer [...] surgery Denies using homeopathic or OTC medicines ENGINE TESTING SUPERVISOR PCP is Dr. Farrar The history is provided by the patient. No resilient tile installer was used. Vaginal Problem This is a [...] nursing note reviewed. Exam conducted with a campaign management senior manager present. Constitutional: General: She is not in [...] mg POC reveals sugar 140 Jemima Iyer APRN.DRAW FIRE OPERATOR documented in this encounterRegency Hospital [facility]04-06-2024 Miscellaneous Notes* Telephone Encounter - Latosha Osei [...] body) 8. : NO Protocols used: Vaginal Pkbbxvho-AEINC-SL, Vulvar Ierxtqlq-PAXYY-YZ documented in this encounterRegency Hospital [facility]03-13-2024 History of Present illness Narrative* Preet Farrar, [...] in follow up after this by her Recruiting And Selection Consultant Dr. Overton that she sees for BLOOD [...] week. She is willing to see a desktop manager- hasn't had any obvious cardiac symptoms but [...] - ICD9: 440.1, ICD10: I70.1 F/u with Recruiting And Selection Consultant, hx of 6. Other ulcerative colitis without [...] with the plan. Preet Farrar DO [address] [place] [address] documented in this encounterRegency Hospital [facility] West03-12-2024 Miscellaneous Notes* Telephone Encounter - Kerry Nevarez [...] you. Kerry Nevarez LPN. documented in this encounterRegency Hospital [facility] West02-28-2024 Miscellaneous Notes* Telephone Encounter - Kerry Nevarez [...] day as needed. Authorizing Provider: JACQUELINE CANDELARIO APRN.DRAW FIRE OPERATOR * Telephone Encounter - Gretchen Dorantes LPN - 11/25/2023 8:18 AM EST At office visit 11/19/23 pt & [employer] discussed Burspar, pt has decided she would like to try it. Please send Rx to [facility] in [place] & notify pt when it has been sent in. Gretchen Dorantes LPN documented in this encounterRegency Hospital [facility] West02-28-2024 Hospital Discharge instructions Patient Education 11/25/2023 03:00:04 [...] that stimulate the heart. This includes many uteg-iio-iskazmr cold and sinus decongestant pills and sprays, as well as diet pills. Check the warnings about high blood pressure onthe label. Before buying any uhqt-kfj-mywnlng medicines or supplements, always ask the pharmacist [...] one of these at most pharmacies. The [place] [employer] Association recommends the following guidelines for [...] face You have problems speaking or seeing 5138-5690 [employer]. [address] [place] [address]. All rights reserved. This information is not intended as a substitute for professional medical care. Always follow yourhealthcare professional's instructions. Follow Up Care 11/24/2023 18:46:50 With:RAY OVERTON Address: [address] [place] [phone] When:2-4 days [facility] 02-28-2024 Emergency department Discharge summary Discharge Instructions Thank you for allowing [facility] to assist you with your healthcare needs. The following is importantdischarge information regarding your hospital visit. Diagnosis from Today's Visit Chest pain What to Do Next Instructions from Your Care Team No qualifying data available. Post Acute Orders No qualifying data available. You Need to Schedule the Following Appointments Follow Up with RAY OVERTON When Within 2-4 days Where: [id number] [place] [phone] Allergies Glutens metFORMIN predniSONE salicylates sulfa drug [...] BY MOUTH AT BEDTIME Unchanged thyroid desiccated ([place] Thyroid 120 mg oral tablet) 32 EA, [...] that stimulate the heart. This includes many zahs-ybq-gdcyzhi cold and sinus decongestant pills and sprays, as well as diet pills. Check the warnings about high blood pressure onthe label. Before buying any kbsu-hob-uslptuy medicines or supplements, always ask the pharmacist [...] one of these at most pharmacies. The [place] [employer] recommends the following guidelines for [...] face You have problems speaking or seeing 2585-8664 [employer]. [address] [place] [address], [place] [address]. All rights reserved. This information is not intended as a substitute for professional medical care. Always follow yourhealthcare professional's instructions. Additional Information VACCINATE! IT SAVES LIVES! Members of the community who have not yet received the COVID-19 vaccine and would like to receive it can visit one of [facility] vaccine clinics. There are many vaccine clinic locations within the State. For locations and available times, please visit www.gettheshot.coronavirus.[place].gov/. It is important to note that some COVID mobile vaccine clinics are held outdoors and may be canceled in rainy or stormy conditions. To learn more about pediatric vaccinations (ages 5-11), we invite you to visit the [facility] webpage. https://www.[facility].org/pages/2612-Ontyk-Gyeqgilaseh-Fftuxxssmu-Kbcry-Jnl stions.htmlTo learn more about the COVID-19 vaccine, we invite you to visit the CDC website for a list of frequently asked questions. https://www.cdc.gov/coronavirus/2019-ncov/vaccines/faq.html [facility] Patient Portal Access Instructions: Stay connected with your healthcare team and access your personal medical information anytime with the [facility] Patient Portal. If you would like a full copy of your medical records please contact the [facility] Medical Records Department Thursday through Thursday between 8a.m. and 4:30p.m. Please follow the directions below to access the portal: 1.Access the email account you provided upon registration to the hospital.2.Look for an invitation email from [facility].3.Open the email and access the invitation link: Accept Invitation to [facility]4.Fill in the required drake to create your account. Sign into www.[email or web address] with your username and password that you [...] you will allow to register on the [facility] Patient Portal for access to your information. You can also access the [facility] Patient Portal on the BenchPrep tex. Simply click on Health Records under FanChatter and then click on the [facility] logo. [...] Call your local pharmacy or go to [email or web address] to find one close to you.3.Make use of household items: Use cat litter or old coffee grounds to dispose medications if other options arenot available. Mix your drugs with these household products, seal them in an airtight container andthrow it into the garbage. Call [facility]: [phone] to be sure your drugs can be [...] aware that I should contact my doctor. Patient/Director Of Pharmacy Signature: Date/Time: Relationship to Patient: Witness Name/Signature: Date/Time: [facility] [id number] Note ORIGINAL EXAMINATION: ONE XRAY VIEW OF [...] Sign Date: 11/24/2023 7:08:29 PM Ordering Provider: [facility]02-27-2024 NoteSINUS OR ECTOPIC ATRIAL RHYTHM ANTEROSEPTAL INFARCT, OLD Electronic Signature: ELOISA LEVIN MD 11/25/2023 02:10:[address] [place] [address] 02-22-2024 Miscellaneous Notes* Telephone Encounter - Jacqueline Candelario APRN.CNP - 11/19/2023 11:29 AM EST We discussed lab results at appointment today. Thank you, Jacqueline Candelario APRN.CNP documented in this encounterRegency Hospital [facility] West02-22-2024 History of Present illness Narrative* Jacqueline Candelario [...] time a week. flash glucose scanning reader (Barcol Air USASTYLE TARA 2 READER) 1 Device as directed. [...] agreeable to treatment plan. Jacqueline Corbin APRN.CNP [address] [place] [address] documented in this encounterRegency Hospital [facility]02-21-2024 Miscellaneous Notes* Telephone Encounter - Sofia Rodriguez [...] you, Jacqueline Candelario APRN.DEREK documented in this encounterRegency Hospital [facility]02-16-2024 Miscellaneous Notes* Telephone Encounter - Jacqueline Candelario [...] pressure. Lisa Aparicio RN documented in this encounterRegency Hospital [facility] West02-16-2024 History of Present illness Narrative* Jacqueline Candelario [...] day of the appointment., Patient provided with Funium education al material., and Advise patient to continue to monitor BP at home and record readings. CONTACT CENTER PROFESSIONAL/MA/THUA: Written education material provided RN Only Education: [...] Patient agreeable to treatment plan. Jacqueline Corbin APRN.DRAW FIRE OPERATOR [address] [place] [address] documented in this encounterRegency Hospital [facility] West02-01-2024 History of Present illness Narrative* Jacqueline Candelario [...] Patient agreeable to treatment plan. Jacqueline Corbin APRN.DRAW FIRE OPERATOR [address] [place] [address] documented in this encounterRegency Hospital [facility] West11-13-2023 Miscellaneous Notes* Telephone Encounter - Gini Martinez [...] pt. Fernanda Ulloa LPN documented in this encounterRegency Hospital [facility] West11-03-2023 Miscellaneous Notes* Telephone Encounter - Lisa Aparicio RN - 07/31/2023 12:09 PM EDT Patient notified of results. Patient verbalizes understanding. Lisa Aparicio RN * Telephone Encounter - Preet Farrar DO - 07/31/2023 7:49 AM EDT Please inform patient that her potassium is normal Preet Farrar DO documented in this encounterRegency Hospital [facility] West11-01-2023 Miscellaneous Notes* Telephone Encounter - Donna Kimble [...] she needs prior authorization for brand name [place] Thyroid. She says she cannot take generic form. PRIOR AUTHORIZATION Medication for Prior Authorization: [place] Thyroid (Patient says she cannot use generic) Other formulary meds available : NO Insurance Company: [facility] Dual Complete Insurance Company phone number: Patient insurance ID number: [id number] Latosha Osei RN documented in this encounterRegency Hospital [facility] West11-01-2023 History of Present illness Narrative* Funmi Roche [...] Care Gap or Scheduling/Wellness visits Payer: Payor: [facility] MEDICARE / Plan: [facility] DUAL COMPLETE HMO POS SNP / Product Type: Medicare / Care Gap Reviewed:: Breast Cancer screening Reminder: Reminder note to check Health Maintenance for items below Health Maintenance items due: Mammogram Screening due on 11/16/2014 RSV Vaccine(1 - 1-dose 60+ series) Never done Colorectal Cancer Screening due on 09/09/2023 Navigation Signature: Funmi BASSETT July 29, 2023 11:35 AM documented in this encounterRegency Hospital [facility] West10-31-2023 Miscellaneous Notes* Telephone Encounter - Sahara Mejia [...] 07/28/2023 1:[address] Stapleton from [facility] calling to give message to pt's [...] advise patient. Thank you. documented in this encounterRegency Hospital [facility] West10-27-2023 Miscellaneous Notes* Telephone Encounter - Yesi Kitchen [...] - 07/22/2023 9:22 AM EDT Patient calling [facility] pharmacy told her the Ozempic 2 mg is on manufacture back order and not know when it will be available. Patient said they do have the 1 mg still available. Patient is asking if she should stay on the Ozempic 1 mg? And she would need new rx to be sent to [facility] pharmacy. Then when do you want her to do the HGBA1C lab work if she stays on the 1 mg? Pending rx if wanted needs completed. Please advise documented in this encounterRegency Hospital [facility] West10-18-2023 History of Present illness Narrative* Kathryn Rivero APRN.CNP - 07/15/2023 10:34 AM EDT Chief Complaint Patient presents with: Hospital F/U: Virus, pt recently had a fall due to dizziness, reports in scanned docs. HPI Deonte Blanco is a 67 year old female who presents here today for Above Complaints. Today: 07/[address] [facility], passed out-doesn't remember this happening but [...] MG/3 ML) SUBCUTANEOUS PEN INJECTOR Kathryn Rivero APRN.DRAW FIRE OPERATOR documented in this encounterRegency Hospital [facility] West10-06-2023 Miscellaneous Notes* Telephone Encounter - Josie Starks RN - 07/03/2023 1:03 PM EDT Patient seen at [facility] ER on 07/01/2023 and is currently [...] she needs evaluated. Thank you, Jacqueline Candelario APRN.DRAW FIRE OPERATOR * Telephone Encounter - Kerry Nevarez LPN [...] then. Josie Starks RN documented in this encounterRegency Hospital [facility] West09-29-2023 History of Present illness Narrative* Jacqueline Candelario [...] diarrhea yesterday. Recent travel last week to [place]. Reports no appetite and feels dehydrated. Concerns [...] today. Stay hydrated, encouraged body armor lite. [place] diet. Discussed and educated patient on reason [...] agreeable to treatment plan. Jacqueline Corbin APRN.CNP [address] [place] [address] documented in this encounterRegency Hospital [facility] West09-22-2023 Instructions* Patient Instructions* Kathryn Rivero APRN.CNP - 06/19/2023 11:13 AM EDT Cut back your [place] Thyroid to 1 tablet daily. Recheck your thyroid levels again in 3 months. Check your A1C in 3 months. Continue with your same diabetic medications and diet, exercise. I'll get back with you pm the [employer] powder. documented in this encounterRegency Hospital [facility]09-22-2023 History of Present illness Narrative* Kathryn Rivero [...] Patient agreeable to treatment plan. Jacqueline Corbin APRN.DRAW FIRE OPERATOR Today: A1C from has improved from 7.8 [...] E53.8 - VITAMIN B12 BLOOD Kathryn Rivero APRN.DRAW FIRE OPERATOR documented in this encounterRegency Hospital [facility]08-21-2023 Miscellaneous Notes* Telephone Encounter - Annmarie Canada, [...] 04-30-23 Next ov: 06-19-23 documented in this encounterRegency Hospital [facility]08-07-2023 Miscellaneous Notes* Telephone Encounter - Sahara Mejia LPN - 05/04/2023 5:11 PM EDT Pt. informed. * Telephone Encounter - Jacqueline Candelario APRN.DEREK - 05/04/2023 4:10 PM EDT Can we see if another pharmacy has ozempic in stock first or have pt call around to see. Thank you, Jacqueline Candelario APRN.DRAW FIRE OPERATOR * Telephone Encounter - Fernanda Ulloa LPN - 05/04/2023 9:11 AM EDT Pt called and she has 1 injection left for her Ozempic. Pharmacy instructed pt to call her pcp. Medication is now on back order. Please advise pt. Okay to leave a message. Fernanda Ulloa LPN documented in this encounterRegency Hospital [facility] West08-03-2023 History of Present illness Narrative* Jacqueline Candelario [...] Patient agreeable to treatment plan. Jacqueline Corbin APRN.DRAW FIRE OPERATOR [address] [place] [address] documented in this encounterRegency Hospital [facility] West06-28-2023 Miscellaneous Notes* Telephone Encounter - Liz Richards [...] PA through medicaidto see if they will picker / packer total cost so she does not have to continue out of pocket. PA to paul submitted through covermeds Shah: [id number] Donna Kimble Ma * Telephone Encounter - Donna Kimble Ma - 03/24/2023 1:22 PM EDT Electronic PA submitted Donna Kimble Ma * Telephone Encounter - Suzanna Coffey RN - 03/24/2023 12:03 PM EDT Prior Authorization Documentation Prior authorization requested for the following medication: Medication: [place] thyroid Provider: Charan Insurance Company Name: [place] [employer] Phone number: [phone] Patient ID number: [id number] Pharmacy Name: [facility] documented in this encounterRegency Hospital [facility]06-21-2023 History of Present illness Narrative* Preet Farrar, [...] with the plan. Preet Farrar DO [address] [place] [address] documented in this encounterRegency Hospital [facility] West06-06-2023 Miscellaneous Notes* Telephone Encounter - Kesha Looneyllow CONTACT CENTER PROFESSIONAL - 03/03/2023 2:20 PM EDT Last OV: [...] patient. Kesha Evans LPN documented in this encounterRegency Hospital [facility]05-08-2023 Miscellaneous Notes* Telephone Encounter - Latosha Osei [...] you. Latosha Osei RN documented in this encounterRegency Hospital [facility] West03-29-2023 Miscellaneous Notes* Telephone Encounter - Annmarie Canada [...] would like it called in to [facility] in [place]. Please call and let Pt know when [...] reports this morning at 710 am it [id number] and at noon it was 225. Last [...] Please call and advise. documented in this encounterRegency Hospital [facility] West03-20-2023 Miscellaneous Notes* Telephone Encounter - Annmarie Canada RN - 12/15/2022 11:23 AM EDT Pt called in and wanted to update provider that she will be starting Ozempic today. She states she will call back in 30 days to let you know how it is going and if she needs to have the medication increased. documented in this encounterRegency Hospital [facility] West03-15-2023 History of Present illness Narrative* Preet Farrar, [...] with the plan. Preet Farrar DO [address] [place] [address] documented in this encounterRegency Hospital [facility] West02-23-2023 Discharge summary Author Douglas Abdul [facility] November 20, 2022 10:36am Note Date/Time November 20, 2022 10:36am [facility] [address] [place] [address] / REHABILITATION SERVICES DISCHARGE SUMMARY MR#: [id number] Acct: [id number] Name: DEONTE BLANCO Rep #: [id number] : 1955 67 From: Douglas ellis Referring Dr.: Dr. Preet Farrar DO Status: REG RCR Insurance: [facility] MCRDUAL COMP O [facility] [employer]AN It has been my [...] please feel free to call me at [phone]. Thank you for the referral of thispatient. Sincerely, Douglas Abdul Balance/Gait/Functional tests - Balance/Special Test Scores Lower Extremity Functional Score: 77 <Electronically signed by Douglas Abdul > 11/20/22 1036 CC: Dr. Preet Farrar DO; Dr. Carmen Dallas MD ~ NRN Signed [facility] Work Phone: 1(789) 447-678502-08-2023 History of Present illness Narrative* Jacqueline Candelario APRN.DRAW FIRE OPERATOR - 11/05/2022 11:00 AM EST Chief Complaint Patient presents with: hospital f/up HPI Deonte Blanco is a 67 year old female who presents here today for Above Complaints. Deonte is an established patient of Dr. Charan DO. Deonte is a new patient to me today. Concerns today... ER/hospital follow-up --- [facility] ER visit on 11/02/22 d/t RLE [...] to treatment plan. Jacqueline Corbin APRN.DEREK [address] [place] [address] documented in this encounterRegency Hospital [facility] West02-07-[address] Dallas [facility] November 04, 2022 10:19am Note Date/Time November 04, 2022 1 0:19am [facility] Medical Records Department [address] [place] [address] Instructions for Home/Discharge Instructions 11/04/22 1018 MR#: [id number] Acct: [id number] Name: DEONTE BLANCO Rep #:[id number] : 1955 67 From: Carmen Dallas MD [...] Hermes Block Instructions Patient Instructions: Booklet - [facility] Stroke ED - Living After Stroke, Booklet [...] Home, Self Care 11/04/22 1019<Electronically signed by aCrmen Dallas MD>Carmen Dallas MD CC: Dr. Hermes Mirza DO; Dr. Hermes Block MD; Dr. Preet Farrar DO ~ Signed [facility] Work Phone: 1(248) 135-910902-06-[address] Dallas [facility] November 03, 2022 3:50pm Note Date/Time November 03, 2022 3 :49pm [facility] Medical Records Department [address] [place] [address] Progress Note - Hospitalist 11/03/22 1540 MR#: [id number] Acct: [id number] Name: DEONTE BLANCO Rep #:[id number] : 1955 67 From: Carmen Dallas MD PCP: Dr. Preet Farrar DO Status:AD M CM Location: [place] [address] Subjective Subjective Patient seen and examined. She [...] (Auto) 70.6 H, Lymph % (Auto) 20.1, Pike % (Auto) 6.7, Eos % (Auto) 1.7, [...] prophylaxis: lovenox Charges/Coding Visit Charges Inpatient E&M: 68541 Subs Hosp L2 Reason for Visit Reason for Visit: Diagnoses Cerebral infarction, unspecified (11/02/22) 11/03/22 1550 <Electronically signed by Carmen Dallas MD> Cosigner Signature (if applicable): CC: ~ Signed [facility] Work Phone: 1(880) 724-717802-06-[address] Dallas [facility] November 03, 2022 10:38am Note Date/Time November 03, 2022 1 0:39am [facility] Medical Records Department [address] [place] [address] Telemedicine Confirmation Receipt 11/03/22 MR#: [id number] Acct: [id number] Name: DEONTE BLANCO Rep #:[id number] : 1955 67 From: Carmen Dallas MD PCP: Dr. Preet Farrar, DO Status:AD M CM [facility] Tele[facility] has confirmed receipt of a request for visit. This document confirms receipt of the order initiating the consult. To find the results of the consultation, please view the patient's reports for the scanned Telemed Consult. [facility] Work Phone: 1(560) 554-252002-06-[address] Chanel [facility] November 02, 2022 10:10pm Note Date/Time November 02, 2022 3 :18pm [facility] Medical Records Department [address] [place] [address] Emergency Department Summary 11/02/22 MR#: [id number] Acct: [id number] Name: DEONTE BLANCO Rep #:[id number] : 1955 67 From: Mick Chanel MD PCP: Dr. Preet Farrar DO Status:AD M CM Location: [place] [address] HPI History of Present Illness Chief Complaint: [...] was done by a back surgeon in [place]. [facility] Medical History Debility Diabetes mellitus Hypertension [...] (Auto) 70.6 H Lymph % (Auto) 20.1 Pike % (Auto) 6.7 Eos % (Auto) 1.7 [...] frontal lobe Disposition Disposition: Acute Care Hospital [facility] Discharge Date/Time: 11/02/22 17:12 What to do if you have Problems For any increased pain, shortness of breath, bleeding, nausea or vomiting, chestpain, or any unexpected problems, contact your Primary Care Provider. Call [facility] ([phone]) or report to the closest Emergency Room. Call 911 if necessary. 11/02/222209 <Electronically signed by Mick Chanel MD> Cosigner Signature (if applicable): CC: Dr. Preet Farrar, DO ~ Signed [facility] Work Phone: 1(857) 186-860702-05-2023 History and physical note Author Dr. Mirza [facility] November 02, 2022 5:39pm Note Date/Time November 02, 2022 5 :39pm [facility] Medical Records Department [address] [place] [address] H&P Exam - Hospitalist 11/02/22 1733 MR#: [id number] Acct: [id number] Name: DEONTE BLANCO Rep #:[id number] : 1955 67 From: Hermes Mirza DO PCP: Dr. Preet Farrar, DO Status:CANDIDO PABON Location: [place] [id number]- 1 HPI - General General Date of [...] Patient has never had a stroke before [facility] Medical History Debility Diabetes mellitus Hypertension [...] in the right upper extremity. Finger-nose and tllu-oh-nmub grossly intact. Sensation grossly intact. Psych/Mental Status: [...] (Auto) 70.6 H, Lymph % (Auto) 20.1, Pike % (Auto) 6.7, Eos % (Auto) 1.7, [...] 16:29 EST Reading Location ID and State: [facility] / [place] , Service support , Assessment & Plan [...] observation status. Charges/Coding Visit Charges Inpatient E&M: 70838 Init Hosp L3 11/02/22 5414 <Electronically signed by Hermes Mirza DO> Cosigner Signature (if applicable): CC: Dr. Hermes Mirza DO; Dr. Aubrey Lundberg MD; Dr. Preet Farrar DO~ Signed [facility] Work Phone: 1(453) 169-912402-05-2023 Miscellaneous Notes* Telephone Encounter - Janis Subramanian RN - 11/02/2022 1:46 PM EST Reason for Call: Left foot drop, cool Outcome: Go to ED now. Patient acknowledged understanding and stated she would have daughter take her to ED. Reason for Disposition Diabetes mellitus Foot is cool or blue in comparison to other side Protocols used: Foot Mmqx-[id number]-JD, Diabetes - Foot Problems and Xvtcxogtj-YYZAL-JY Patient states she is Type II diabetic and had back surgery in 2020. documented in this encounterRegency Hospital [facility] West01-11-2023 Miscellaneous Notes* Telephone Encounter - Gini Martinez LPN - 10/08/2022 4:52 PM EST Keira--09/10/22 Nov--12/10/22 Last refill--b-12 05/07/22 90 with 3 refills [place] [facility] 05/28/22 90 with 1 refills Last [...] advise. Susan Goddard Pss documented in this encounterRegency Hospital [facility] West12-08-2022 Miscellaneous Notes* Telephone Encounter - Sofia Valente [...] advise and call patient. documented in this encounterRegency Hospital [facility] West11-30-2022 Miscellaneous Notes* Telephone Encounter - Chelo Lakhani [...] and advise. Chelo Bassett documented in this encounterRegency Hospital [facility] West08-31-2022 Miscellaneous Notes* Telephone Encounter - Fernanda Tash [...] you. Fernanda Ulloa LPN documented in this encounterRegency Hospital [facility] West08-09-2022 Miscellaneous Notes* Telephone Encounter - Donna Kimble Ma - 05/06/2022 11:59 AM EDT Patient last visit with PCP 02/19/22 Follow up appointment scheduled none Donna Kimble Ma documented in this encounterRegency Hospital [facility] West07-11-2022 Miscellaneous Notes* Telephone Encounter - Annmarie Canada RN - 04/07/2022 3:13 PM EDT Zoey from [facility], and Pts POA called and asked to have lab results from 04/04/22 faced over. Faxed to # [phone]. documented in this encounterRegency Hospital Cleveland West07-06-2022 Miscellaneous Notes* Telephone Encounter - Sahara Bassett [...] patient. Sahara Thayer Pss documented in this encounterRegency Hospital [facility] West06-03-2022 History of Present illness Narrative* RT Whitley(R) [...] 28, 2022 10:22 AM documented in this encounterRegency Hospital [facility] West06-02-2022 Miscellaneous Notes* Telephone Encounter - Funmi Burleson [...] to test, and take hermeds afterwards. Asking Client Technical Support Associate to please advise patient if this would [...] office to answer her specific questions. PH: [phone]. Thank you. documented in this encounterRegency Hospital [facility] West05-27-2022 Miscellaneous Notes* Telephone Encounter - Gini Martinez [...] samples. Preet Farrar DO documented in this encounterRegency Hospital [facility] West05-26-2022 Miscellaneous Notes* Telephone Encounter - Chelo Prasad [...] if agreeable. Thank you. documented in this encounterRegency Hospital [facility] West05-25-2022 History of Present illness Narrative* Preet Farrar, - 02/19/2022 12:11 PM EDT Patient presents with: Follow Up HPI: eDonte Blanco is a 66 year old female [...] agreed with the plan. Preet Farrar DO [address] [place] [address] documented in this encounterRegency Hospital [facility] West05-18-2022 Miscellaneous Notes* Telephone Encounter - Yesi Henry [...] Discussed recent order sent last month to [facility] for new BP cuff and patient states she did not know an order was sent for this and she will contact [facility] today and try to picker / packer new BP monitor. She wanted to update Dr. Farrar of her BP results now instead of waiting until 02/19 appt due to being concerned. She denies any chest pain, shortness of breath or other symptoms. Please advise. Thank you. documented in this encounterRegency Hospital [facility] West05-16-2022 History of Present illness Narrative* RT Maria [...] 10, 2022 10:01 AM documented in this encounterRegency Hospital Cleveland West05-06-2022 Instructions* Patient Instructions* Kathryn Rivero APRN.DRAW FIRE OPERATOR - 01/31/2022 11:45 AM EDT Record your BP and heart rate once daily until your appointment with Dr. Farrar. If your BP is consistently over 160/100, please let us know before then. You can discuss your thyroid medication with her at that time as well. documented in this encounterRegency Hospital Cleveland West05-06-2022 History of Present illness Narrative* Kathryn Rivero [...] E03.9 Insurance is no longer covering her [place] Thyroid, as she is over 65 years old. They would like her to take QUOTATION CHECKER Thyroid, but patient is unsure that she [...] in counseling and education. documented in this encounterRegency Hospital Cleveland West05-05-2022 Instructions* Patient Instructions* Steve Rodriguez - 01/30/2022 1:55 PM EDT Continue with boot. Repeat xrays in 2 weeks and then again in one month F/u in 1 month If you experience any issues, contact the office immediately documented in this encounterRegency Hospital Cleveland West05-05-2022 History of Present illness Narrative* Steve Rodriguez [...] myself: Nondisplaced fracture of left fibula ASSESSMENT: (E64.768P) Closed fracture of distal end of left fibula, unspecified fracture morphology, initial encounter (primary encounter diagnosis) PLAN: 1. History and physical examination performed. 2. XR reviewed with patient and interpreted today 3. Discussed fracture of left fibula. This is nondisplaced. Continue with boot. 4. Will repeat xrays in 2 weeks and then again in 4 weeks Steve Rodriguez DPM Podiatry [address] [facility] [address] Dept: [phone] Dept * Melissa Valdivia RN - 01/30/2022 1:40 PM EDT AMB ROOMING INTAKE FLOWSHEET DATA Risk Screening Do you have concerns about personal safety or safety in the home?: No Patient presents with: Left Foot - New Patient, Fracture Patient is here for L foot fracture. Occurred a week ago. Has been NWB in boot. documented in this encounterRegency Hospital Cleveland West04-28-2022 History of Present illness Narrative* Nataly Ryan APRN.DRAW FIRE OPERATOR - 01/23/2022 4:59 PM EDT Images from the original note were not included. Subjective Patient came in with complaints of left ankle pain. Patient said she twisted her ankle in [place] rock driveway. Said it does hurt to walk on it. Did notice some swelling. No loss of feeling or sensation. The history is provided by the patient. No resilient tile installer was used. Review of Systems Constitutional: Negative. [...] aspect of the lateral malleolus. Calcaneal spurring. Extrusion Utility Worker: AUGUSTIN Transcribe Date/Time: Jan 23 2022 5:55P Dictated by : RODRIGO GONSALVES MD Patient placed in a walking boot and crutches were given. Try not to put weight on ankle as much aspossible. Orthopedic appointment patient instructed to take tylenol and ice and elevate until follow up with orthopedic. Nataly Ryan APRN.DEREK documented in this encounterRegency Hospital Cleveland West04-20-2022 Miscellaneous Notes* Telephone Encounter - Jacqueline Corbin [...] may contact her insurance company or the building cleaning supervisor of [employer] to see if they [...] To: Jacqueline Corbin From: [employer] Phone: Fax: [phone] Reference #: [id number] RE: Prior Authorization Request Patient Name: Deonte Blanco Patient : 1955 Status of Request: Deny Medication Name: [place] Thyro Tab 120mg GPI/NDC: [id number] Decision Notes: This medication is a plan exclusion and is not a covered benefit on this patient's plan. * Telephone Encounter - Liz Richards LPN - 01/14/2022 12:01 PM EDT Electronic PA requested. * Telephone Encounter - Annmarie Canada RN - 01/14/2022 11:41 AM EDT Prior Authorization Documentation Prior authorization requested for the following medication: Medication: [place] Thyroid Provider: Dr Preet Farrar Insurance Company Name: [facility] MEDICARE Insurance Company Phone number: Patient ID number: [id number] Pharmacy Name: [facility] Telephone number: [phone] documented in this encounterRegency Hospital Cleveland West04-02-2021 NoteHospital Medicine Discharge Summary Deonte Blanco : [...] Finally were able to transition her to group home facility on 12/28/2020. Exam on discharge: BP [...] by the following consultants while admitted to [facility]: Consults: IP CONSULT TO ORTHOPEDIC SURGERY IP CONSULT TO LATENT FINGERPRINT EXAMINER IP CONSULT TO LATENT FINGERPRINT EXAMINER Significant Diagnostic Studies: Refer to chart Please refer to chart if no studies are shown here Xr Lumbar Spine (2-3 Views) Result Date: 12/21/2020 Patient Name: DEONTE BLANCO Diagnostic Radiology ACCESSION EXAM DATE/TIME PROCEDURE ORDERING PROVIDER [id number] 12/21/2020 06:06 EDT CR Spine Lumbosacral 2 MD ROCK ZACHARY or 3 Views CPT code 89482 Reason For Exam (CR Spine Lumbosacral 2 or 3 Views) pre-surgery films Report Examination: Lumbar spine 3 views Indication: pre-surgery films Findings: The vertebral bodies are in gross anatomic alignment. No acute fracture is demonstrated. Uhka-ni-iagouhae levocurvature is noted. There are at least moderate degenerative facet changes of the lower lumbar spine. There is at least moderate degenerative disc disease at T12/L1 and L1/L2. Kety-wm-ekxbneen calcification of the abdominal aorta is noted. [...] Radiology ACCESSION EXAM DATE/TIME PROCEDURE ORDERING PROVIDER [id number] 12/21/2020 06:06 EDT CR Chest 1 View Frontal MD ROCK ZACHARY CPT code 01303 Reason For Exam (CR Chest 1 View [...] Discharge Medications: Deonte Blanco Home Medication Instructions [place]:[id number] Printed on:12/28/20 1201 Medication Information Cholecalciferol (VITAMIN D3) 1.25 MG (91898 UT) CAPS Take 50,000 capsules by mouth Twice a Week Thursday and Thursday cyclobenzaprine (FLEXERIL) 10 MG tablet Take 1 tablet by mouth 3 times daily as needed for Muscle spasms gabapentin (NEURONTIN) 300 MG capsule Take 1 capsule by mouth 3 times da (more content not included)...[facility]03-27-2021 NoteProcedure Note Name: Deonte Blanco Date of : 1955 Age: 65 y.o. Primary Care Physician: No primary care provider on file. Admission Date/Time: 12/21/2020 2:28 AM Date of Procedure: 12/21/2020 Attending Surgeon: Steve Martinez M.D. Food Clerk: Abisai Wolff PA-C, Treva Henderson MD PGY-2 The first-perinatal breastfeeding assistant was critical to all steps of [...] F who presented as a transfer from [facility] with low back pain and bilateral [...] was prepped and drape (more content not included)...[facility]01-15-2019 History of Past illness Narrative* Problem Noted Date Resolved Date Controlled type 2 diabetes m nedra without complication, without long-term current use of insulin 10/12/2018 12/08/2022 Abdominal pain, right upper quadrant 02/16/2007 12/08/2022 Diabetes mellitus type 2, controlled, without co mplications 07/13/2006 12/08/2022 Overview: 2005 documented as of this encounter (statuses as of 12/10/2022) [facility]01-[facility] History of Past illness Narrative* Problem Noted Date Resolved Date Controlled type 2 diabetes m issacitus without complication, without long-term current use of insulin 10/12/2018 12/08/2022 Abdominal pain, right upper quadrant 02/16/2007 12/08/2022 Diabetes mellitus type 2, controlled, without co mplications 07/13/2006 12/08/2022 Overview: 2005 documented as of this encounter (statuses as of 12/15/2022) [facility] History of Past illness Narrative* Problem Noted Date Resolved Date Controlled type 2 diabetes m ellitus without complication, without long-term current use of insulin 10/12/2018 12/08/2022 Abdominal pain, right upper quadrant 02/16/2007 12/08/2022 Diabetes mellitus type 2, controlled, without co mplications 07/13/2006 12/08/2022 Overview: 2005 documented as of this encounter (statuses as of 12/24/2022) [facility] History of Past illness Narrative* Problem Noted Date Resolved Date Controlled type 2 diabetes m ellitus without complication, without long-term current use of insulin 10/12/2018 12/08/2022 Abdominal pain, right upper quadrant 02/16/2007 12/08/2022 Diabetes mellitus type 2, controlled, without co mplications 07/13/2006 12/08/2022 Overview: 2005 documented as of this encounter (statuses as of 02/03/2023) [facility] History of Past illness Narrative* Problem Noted Date Resolved Date Controlled type 2 diabetes m ellitus without complication, without long-term current use of insulin 10/12/2018 12/08/2022 Abdominal pain, right upper quadrant 02/16/2007 12/08/2022 Diabetes mellitus type 2, controlled, without co mplications 07/13/2006 12/08/2022 Overview: 2005 documented as of this encounter (statuses as of 03/04/2023) [facility] History of Past illness Narrative* Problem Noted Date Resolved Date Controlled type 2 diabetes m ellitus without complication, without long-term current use of insulin 10/12/2018 12/08/2022 Abdominal pain, right upper quadrant 02/16/2007 12/08/2022 Diabetes mellitus type 2, controlled, without co mplications 07/13/2006 12/08/2022 Overview: 2005 documented as of this encounter (statuses as of 03/18/2023) [facility] History of Past illness Narrative* Problem Noted Date Resolved Date Controlled type 2 diabetes m ellitus without complication, without long-term current use of insulin 10/12/2018 12/08/2022 Abdominal pain, right upper quadrant 02/16/2007 12/08/2022 Diabetes mellitus type 2, controlled, without co mplications 07/13/2006 12/08/2022 Overview: 2005 documented as of this encounter (statuses as of 03/25/2023) [facility] History of Past illness Narrative* Problem Noted Date Diagnosed Date Resolved Date Controlled type 2 diabetes m ellitus without complication, without long-term current use of insulin 10/12/2018 12/08/2022 Abdominal pain, right upper quadrant 02/16/2007 12/08/2022 Diabetes mellitus type 2, co ntrolled, without complications 07/13/2006 12/08/2022 Overview: 2005 documented as of this encounter (statuses as of 04/30/2023) [facility] History of Past illness Narrative* Problem Noted Date Diagnosed Date Resolved Date Controlled type 2 diabetes m ellitus without complication, without long-term current use of insulin 10/12/2018 12/08/2022 Abdominal pain, right upper quadrant 02/16/2007 12/08/2022 Diabetes mellitus type 2, co ntrolled, without complications 07/13/2006 12/08/2022 Overview: 2005 documented as of this encounter (statuses as of 05/05/2023) [facility] of Past illness Narrative* Problem Noted Date Diagnosed Date Resolved Date Controlled type 2 diabetes m ellitus without complication, without long-term current use of insulin 10/12/2018 12/08/2022 Abdominal pain, right upper quadrant 02/16/2007 12/08/2022 Diabetes mellitus type 2, co ntrolled, without complications 07/13/2006 12/08/2022 Overview: 2005 documented as of this encounter (statuses as of 05/18/2023) [facility]-15-2019 History of Past illness Narrative* Problem Noted Date Diagnosed Date Resolved Date Controlled type 2 diabetes m ellitus without complication, without long-term current use of insulin 10/12/2018 12/08/2022 Abdominal pain, right upper quadrant 02/16/2007 12/08/2022 Diabetes mellitus type 2, co ntrolled, without complications 07/13/2006 12/08/2022 Overview: 2005 documented as of this encounter (statuses as of 06/20/2023) [facility]2019 History of Past illness Narrative* Problem Noted Date Diagnosed Date Resolved Date Controlled type 2 diabetes m ellitus without complication, without long-term current use of insulin 10/12/2018 12/08/2022 Abdominal pain, right upper quadrant 02/16/2007 12/08/2022 Diabetes mellitus type 2, co ntrolled, without complications 07/13/2006 12/08/2022 Overview: 2005 documented as of this encounter (statuses as of 06/26/2023) [facility]2019 History of Past illness Narrative* Problem Noted Date Diagnosed Date Resolved Date Controlled type 2 diabetes m ellitus without complication, without long-term current use of insulin 10/12/2018 12/08/2022 Abdominal pain, right upper quadrant 02/16/2007 12/08/2022 Diabetes mellitus type 2, co ntrolled, without complications 07/13/2006 12/08/2022 Overview: 2005 documented as of this encounter (statuses as of 07/04/2023) [facility]2019 History of Past illness Narrative* Problem Noted Date Diagnosed Date Resolved Date Controlled type 2 diabetes m ellitus without complication, without long-term current use of insulin 10/12/2018 12/08/2022 Abdominal pain, right upper quadrant 02/16/2007 12/08/2022 Diabetes mellitus type 2, co ntrolled, without complications 07/13/2006 12/08/2022 Overview: 2005 documented as of this encounter (statuses as of 07/21/2023) [facility]2019 History of Past illness Narrative* Problem Noted Date Diagnosed Date Resolved Date Controlled type 2 diabetes m ellitus without complication, without long-term current use of insulin 10/12/2018 12/08/2022 Abdominal pain, right upper quadrant 02/16/2007 12/08/2022 Diabetes mellitus type 2, co ntrolled, without complications 07/13/2006 12/08/2022 Overview: 2005 documented as of this encounter (statuses as of 07/24/2023) [facility]2019 History of Past illness Narrative* Problem Noted Date Diagnosed Date Resolved Date Controlled type 2 diabetes m ellitus without complication, without long-term current use of insulin 10/12/2018 12/08/2022 Abdominal pain, right upper quadrant 02/16/2007 12/08/2022 Diabetes mellitus type 2, co ntrolled, without complications 07/13/2006 12/08/2022 Overview: 2005 documented as of this encounter (statuses as of 07/28/2023) [facility]2019 History of Past illness Narrative* Problem Noted Date Diagnosed Date Resolved Date Controlled type 2 diabetes m ellitus without complication, without long-term current use of insulin 10/12/2018 12/08/2022 Abdominal pain, right upper quadrant 02/16/2007 12/08/2022 Diabetes mellitus type 2, co ntrolled, without complications 07/13/2006 12/08/2022 Overview: 2005 documented as of this encounter (statuses as of 07/29/2023) [facility]2019 History of Past illness Narrative* Problem Noted Date Diagnosed Date Resolved Date Controlled type 2 diabetes m ellitus without complication, without long-term current use of insulin 10/12/2018 12/08/2022 Abdominal pain, right upper quadrant 02/16/2007 12/08/2022 Diabetes mellitus type 2, co ntrolled, without complications 07/13/2006 12/08/2022 Overview: 2005 documented as of this encounter (statuses as of 08/01/2023) [facility]2019 History of Past illness Narrative* Problem Noted Date Diagnosed Date Resolved Date Controlled type 2 diabetes m ellitus without complication, without long-term current use of insulin 10/12/2018 12/08/2022 Abdominal pain, right upper quadrant 02/16/2007 12/08/2022 Diabetes mellitus type 2, co ntrolled, without complications 07/13/2006 12/08/2022 Overview: 2005 documented as of this encounter (statuses as of 08/10/2023) [facility] History of Past illness Narrative* Problem Noted Date Diagnosed Date Resolved Date Controlled type 2 diabetes m ellitus without complication, without long-term current use of insulin 10/12/2018 12/08/2022 Abdominal pain, right upper quadrant 02/16/2007 12/08/2022 Diabetes mellitus type 2, co ntrolled, without complications 07/13/2006 12/08/2022 Overview: 2005 documented as of this encounter (statuses as of 10/29/2023) [facility] History of Past illness Narrative* Problem Noted Date Diagnosed Date Resolved Date Controlled type 2 diabetes m ellitus without complication, without long-term current use of insulin 10/12/2018 12/08/2022 Abdominal pain, right upper quadrant 02/16/2007 12/08/2022 Diabetes mellitus type 2, co ntrolled, without complications 07/13/2006 12/08/2022 Overview: 2005 documented as of this encounter (statuses as of 11/13/2023) [facility]2019 History of Past illness Narrative* Problem Noted Date Diagnosed Date Resolved Date Controlled type 2 diabetes m ellitus without complication, without long-term current use of insulin 10/12/2018 12/08/2022 Abdominal pain, right upper quadrant 02/16/2007 12/08/2022 Diabetes mellitus type 2, co ntrolled, without complications 07/13/2006 12/08/2022 Overview: 2005 documented as of this encounter (statuses as of 11/13/2023) [facility]2019 History of Past illness Narrative* Problem Noted Date Diagnosed Date Resolved Date Controlled type 2 diabetes m ellitus without complication, without long-term current use of insulin 10/12/2018 12/08/2022 Abdominal pain, right upper quadrant 02/16/2007 12/08/2022 Diabetes mellitus type 2, co ntrolled, without complications 07/13/2006 12/08/2022 Overview: 2005 documented as of this encounter (statuses as of 11/18/2023) [facility] History of Past illness Narrative* Problem Noted Date Diagnosed Date Resolved Date Controlled type 2 diabetes m ellitus without complication, without long-term current use of insulin 10/12/2018 12/08/2022 Abdominal pain, right upper quadrant 02/16/2007 12/08/2022 Diabetes mellitus type 2, co ntrolled, without complications 07/13/2006 12/08/2022 Overview: 2005 documented as of this encounter (statuses as of 11/19/2023) [facility]2019 History of Past illness Narrative* Problem Noted Date Diagnosed Date Resolved Date Controlled type 2 diabetes m ellitus without complication, without long-term current use of insulin 10/12/2018 12/08/2022 Abdominal pain, right upper quadrant 02/16/2007 12/08/2022 Diabetes mellitus type 2, co ntrolled, without complications 07/13/2006 12/08/2022 Overview: 2005 documented as of this encounter (statuses as of 11/19/2023) [facility]2019 History of Past illness Narrative* Problem Noted Date Diagnosed Date Resolved Date Controlled type 2 diabetes m ellitus without complication, without long-term current use of insulin 10/12/2018 12/08/2022 Abdominal pain, right upper quadrant 02/16/2007 12/08/2022 Diabetes mellitus type 2, co ntrolled, without complications 07/13/2006 12/08/2022 Overview: 2005 documented as of this encounter (statuses as of 11/25/2023) [facility]2019 History of Past illness Narrative* Problem Noted Date Diagnosed Date Resolved Date Controlled type 2 diabetes m ellitus without complication, without long-term current use of insulin 10/12/2018 12/08/2022 Abdominal pain, right upper quadrant 02/16/2007 12/08/2022 Diabetes mellitus type 2, co ntrolled, without complications 07/13/2006 12/08/2022 Overview: 2005 documented as of this encounter (statuses as of 12/09/2023) [facility]2019 History of Past illness Narrative* Problem Noted Date Diagnosed Date Resolved Date Controlled type 2 diabetes m ellitus without complication, without long-term current use of insulin 10/12/2018 12/08/2022 Abdominal pain, right upper quadrant 02/16/2007 12/08/2022 Diabetes mellitus type 2, co ntrolled, without complications 07/13/2006 12/08/2022 Overview: 2005 documented as of this encounter (statuses as of 12/10/2023) [facility] History of Past illness Narrative* Problem Noted Date Diagnosed Date Resolved Date Controlled type 2 diabetes m ellitus without complication, without long-term current use of insulin 10/12/2018 12/08/2022 Abdominal pain, right upper quadrant 02/16/2007 12/08/2022 Diabetes mellitus type 2, co ntrolled, without complications 07/13/2006 12/08/2022 Overview: 2005 documented as of this encounter (statuses as of 01/02/2024) [facility] History of Past illness Narrative* Problem Noted Date Diagnosed Date Resolved Date Controlled type 2 diabetes m ellitus without complication, without long-term current use of insulin 10/12/2018 12/08/2022 Abdominal pain, right upper quadrant 02/16/2007 12/08/2022 Diabetes mellitus type 2, co ntrolled, without complications 07/13/2006 12/08/2022 Overview: 2005 documented as of this encounter (statuses as of 01/02/2024) [facility] History of Past illness Narrative* Problem Noted Date Diagnosed Date Resolved Date Controlled type 2 diabetes m ellitus without complication, without long-term current use of insulin 10/12/2018 12/08/2022 Abdominal pain, right upper quadrant 02/16/2007 12/08/2022 Diabetes mellitus type 2, co ntrolled, without complications 07/13/2006 12/08/2022 Overview: 2005 documented as of this encounter (statuses as of 01/03/2024) [facility]2019 History of Past illness Narrative* Problem Noted Date Diagnosed Date Resolved Date Controlled type 2 diabetes m ellitus without complication, without long-term current use of insulin 10/12/2018 12/08/2022 Abdominal pain, right upper quadrant 02/16/2007 12/08/2022 Diabetes mellitus type 2, co ntrolled, without complications 07/13/2006 12/08/2022 Overview: 2005 documented as of this encounter (statuses as of 01/06/2024) [facility]2019 History of Past illness Narrative* Problem Noted Date Diagnosed Date Resolved Date Controlled type 2 diabetes m ellitus without complication, without long-term current use of insulin 10/12/2018 12/08/2022 Abdominal pain, right upper quadrant 02/16/2007 12/08/2022 Diabetes mellitus type 2, co ntrolled, without complications 07/13/2006 12/08/2022 Overview: 2005 documented as of this encounter (statuses as of 01/06/2024) [facility]2019 History of Past illness Narrative* Problem Noted Date Diagnosed Date Resolved Date Controlled type 2 diabetes m ellitus without complication, without long-term current use of insulin 10/12/2018 12/08/2022 Abdominal pain, right upper quadrant 02/16/2007 12/08/2022 Diabetes mellitus type 2, co ntrolled, without complications 07/13/2006 12/08/2022 Overview: 2005 documented as of this encounter (statuses as of 01/07/2024) [facility]2019 History of Past illness Narrative* Problem Noted Date Diagnosed Date Resolved Date Controlled type 2 diabetes m ellitus without complication, without long-term current use of insulin 10/12/2018 12/08/2022 Abdominal pain, right upper quadrant 02/16/2007 12/08/2022 Diabetes mellitus type 2, co ntrolled, without complications 07/13/2006 12/08/2022 Overview: 2005 documented as of this encounter (statuses as of 01/14/2024) [facility] + Plan note No data available for this section [facility] Evaluation note* Diagnosis Acute left ankle pain- Primary documented in this encounter [facility] note* Diagnosis Closed fracture of distal end of left fibula, unspecified fracture morphology, initial encounter- Primary documented in this encounter [facility] note* Diagnosis Essential hypertension, benign- Primary Acquired hypothyroidism Unspecified hypothyroidism Controlled type 2 diabetes mellitus without complication, without long-term current use of insulin (HCC) [facility] Diagnosis Closed fracture of distal end of left fibula, unspecified fracture morphology, initial encounter documented in this encounter [facility] note* Diagnosis Uncontrolled hypertension- Primary Unspecified essential hypertension Palpitations Uncontrolled type 2 diabetes mellitus with hyperglycemia (HCC) Essential hypertension, benign Acquired hypothyroidism Unspecified hypothyroidism documented in this encounter [facility] note* Diagnosis Uncontrolled hypertension- Primary Unspecified essential hypertension [facility] Diagnosis Closed fracture of distal end of left fibula, unspecified fracture morphology, initial encounter documented in this encounter [facility] note* Diagnosis Encounter for screening mammogram for breast cancer documented in this encounter [facility] note* Diagnosis Vitamin D deficiency Unspecified vitamin D deficiency documented in this encounter [facility] noteNo assessment information availableWSal[facility] Work Phone: Evaluation note* Diagnosis Vitamin B12 deficiency Other B-complex deficiencies [facility]* Diagnosis Acquired hypothyroidism Unspecified hypothyroidism [facility]* Diagnosis Essential hypertension, benign [facility]* Diagnosis Acquired hypothyroidism- Primary Unspecified hypothyroidism Vitamin D deficiency Unspecified vitamin D deficiency Uncontrolled type 2 diabetes mellitus with hyperglycemia (HCC) Dyslipidemia Other and unspecified hyperlipidemia Iron deficiency anemia, unspecified iron deficiency anemia type documented in this encounter [facility] note* Diagnosis Acquired hypothyroidism Unspecified hypothyroidism Vitamin B12 deficiency Other B-complex deficiencies documented in this encounter [facility] note* Diagnosis Onset Date Resolution Status Ischemic cerebrovascular accident (CVA) of frontal lob e [facility] Work Phone: Evaluation note* Diagnosis Ischemic stroke without residual deficits (HCC)- Primary Essential hypertension, benign Uncontrolled type 2 diabetes mellitus with hyperglycemia (HCC) Dyslipidemia Other and unspecified hyperlipidemia Encounter for smoking cessation counseling Counseling on substance use and abuse Controlled type 2 diabetes mellitus without complication, without long-term current use of insulin (HCC) [facility]* Diagnosis Uncontrolled type 2 diabetes mellitus with hyperglycemia (HCC)- Primary Ischemic stroke without residual deficits (HCC) Dyslipidemia Other and unspecified hyperlipidemia Acquired hypothyroidism Unspecified hypothyroidism Vitamin D deficiency Unspecified vitamin D deficiency Vitamin B12 deficiency Other B-complex deficiencies History of tobacco abuse Personal history of tobacco use, presenting hazards to health [facility] Diagnosis Vitamin B12 deficiency Other B-complex deficiencies [facility] Diagnosis Acquired hypothyroidism Unspecified hypothyroidism Vitamin D deficiency Unspecified vitamin D deficiency [facility]* Diagnosis Uncontrolled type 2 diabetes mellitus with hyperglycemia (HCC)- Primary Acquired hypothyroidism Unspecified hypothyroidism Dyslipidemia Other and unspecified hyperlipidemia History of tobacco abuse Personal history of tobacco use, presenting hazards to health Essential hypertension, benign [facility]* Diagnosis Onset Date Resolution Status Polyneuropathy acute 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 Ischemic stroke resolved [facility] Work Phone: Evaluation note* Diagnosis Uncontrolled type 2 diabetes mellitus with hyperglycemia (HCC) [facility] Diagnosis Uncontrolled type 2 diabetes mellitus with hyperglycemia (HCC) [facility]* Diagnosis Uncontrolled type 2 diabetes mellitus with hyperglycemia (HCC)- Primary Acquired hypothyroidism Unspecified hypothyroidism Vitamin B12 deficiency Other B-complex deficiencies [facility]* Diagnosis Nausea and vomiting, unspecified vomiting type- Primary Hyperglycemia Other abnormal glucose Controlled type 2 diabetes mellitus without complication, without long-term current use of insulin (HCC) [facility]* Diagnosis Uncontrolled type 2 diabetes mellitus with hyperglycemia (HCC)- Primary Acquired hypothyroidism Unspecified hypothyroidism Essential hypertension, benign Renal artery stenosis (HCC) Atherosclerosis of renal artery [facility]* Diagnosis Uncontrolled type 2 diabetes mellitus with hyperglycemia (HCC) [facility]* Diagnosis Hypokalemia- Primary Hypopotassemia [facility] Diagnosis Onset Date Resolution Status Hypokalemia acute Hypokalemia acute Polyneuropathy acute 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 Ischemic stroke resolved [facility] Work Phone: evaluation note* Diagnosis Essential hypertension, benign- Primary [facility]* Diagnosis Essential hypertension, benign- Primary Acquired hypothyroidism Unspecified hypothyroidism Controlled type 2 diabetes mellitus without complication, with long-term current use of insulin (HCC) Uncontrolled type 2 diabetes mellitus with hyperglycemia (HCC) [facility] Diagnosis Essential hypertension, benign- Primary Situational anxiety Other anxiety states [facility] Diagnosis Ischemic stroke without residual deficits (HCC) [facility] Diagnosis Uncontrolled type 2 diabetes mellitus [...] Other anxiety states [facility] Diagnosis Vaginal itching- Primary Pruritus of genital organs Dysuria Glucosuria Glycosuria [facility] Diagnosis BV (bacterial vaginosis)- Primary Vaginitis and vulvovaginitis, unspecified [facility]* Diagnosis Acquired hypothyroidism Unspecified hypothyroidism Uncontrolled type 2 diabetes mellitus with hyperglycemia (HCC) [facility] Diagnosis Uncontrolled type 2 diabetes mellitus with hyperglycemia (HCC)- Primary Situational anxiety Other anxiety states [facility] Diagnosis Uncontrolled type 2 diabetes mellitus with hyperglycemia (HCC)- Primary Vaginal yeast infection Candidiasis of vulva and vagina Poor sleep [facility] Diagnosis Vitamin D deficiency Unspecified vitamin D deficiency [facility] Diagnosis Encounter for screening mammogram for breast cancer [facility] Diagnosis Gastroenteritis- Primary Other and unspecified noninfectious gastroenteritis and colitis Uncontrolled type 2 diabetes mellitus with hyperglycemia (HCC) Acquired hypothyroidism Unspecified hypothyroidism Obesity, Class I, BMI 30-34.9 Obesity, unspecified Acute dehydration Situational anxiety Other anxiety states [facility] Diagnosis Type 2 diabetes mellitus with other circulatory complication, with long-term current use of insulin (HCC)- Primary [facility]* Diagnosis Ischemic stroke without residual deficits (HCC) [facility]* Diagnosis Thickened endometrium- Primary Nonspecific (abnormal) findings on radiological and other examination of genitourinary organs LLQ pain Abdominal pain, left lower quadrant [facility]* Diagnosis Uncontrolled type 2 diabetes mellitus with hyperglycemia (HCC)- Primary Acquired hypothyroidism Unspecified hypothyroidism Essential hypertension, benign Vitamin B12 deficiency Other B-complex deficiencies Hyperlipidemia, mixed Mixed hyperlipidemia Tobacco use disorder Vitamin D deficiency Unspecified vitamin D deficiency documented in this encounter [facility] note* Diagnosis Acute left ankle pain [facility]* Diagnosis Type 2 diabetes mellitus with other circulatory complication, with long-term current use of insulin (HCC)- Primary [facility]* Diagnosis Acquired hypothyroidism Unspecified hypothyroidism Uncontrolled type 2 diabetes mellitus with hyperglycemia (HCC) documented in this encounter [facility] note* Diagnosis Uncontrolled type 2 diabetes mellitus with hyperglycemia (HCC) documented in this encounter [facility] note* Diagnosis Hyperlipidemia, mixed- Primary Mixed hyperlipidemia Hypothyroidism, unspecified type 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, without long-term current use of insulin (HCC) documented in this encounter [facility] note* Diagnosis Medicare annual wellness visit, [...] vitamin D deficiency [facility]* Diagnosis Acquired hypothyroidism Unspecified hypothyroidism [facility] Diagnosis Abnormal results of thyroid function studies- Primary Nonspecific abnormal results of thyroid function study [facility]* Diagnosis Ischemic stroke without residual deficits (HCC) documented in this encounter [facility]* Diagnosis Uncontrolled type 2 diabetes mellitus with hyperglycemia (HCC)- Primary Hyperlipidemia, mixed Mixed hyperlipidemia Vitamin B12 deficiency Other B-complex deficiencies Vitamin D deficiency Unspecified vitamin D deficiency Essential hypertension, benign Acquired hypothyroidism Unspecified hypothyroidism Pre-op examination Preoperative examination, unspecified documented in this encounter [facility] note* Diagnosis Uncontrolled type 2 diabetes mellitus with hyperglycemia (HCC)- Primary documented in this encounter [facility]* Diagnosis Encounter for screening mammogram for breast cancer [facility]* Diagnosis Type 2 diabetes mellitus with other circulatory complication, with long-term current use of insulin (HCC)- Primary Abnormal weight gain documented [facility] this [facility]* Diagnosis Uncontrolled type 2 diabetes mellitus with hyperglycemia (HCC) Screening for depression documented [facility] this encounter [facility]* Diagnosis Uncontrolled type 2 diabetes mellitus with hyperglycemia (HCC) documented [facility] this [facility]* Diagnosis Type 2 diabetes mellitus with [...] Essential hypertension, benign documented [facility]* Diagnosis Acquired hypothyroidism Unspecified hypothyroidism documented in [facility]* Diagnosis Other elevated white blood cell (WBC) count- Primary documented [facility]* Diagnosis Acquired hypothyroidism- Primary Unspecified hypothyroidism Ischemic stroke without residual deficits (HCC) Uncontrolled type 2 diabetes mellitus with hyperglycemia (HCC) Hyperlipidemia, mixed Mixed hyperlipidemia documented [facility]* Diagnosis Uncontrolled type 2 diabetes mellitus with hyperglycemia (HCC)- Primary Acquired hypothyroidism Unspecified hypothyroidism Hyperlipidemia, mixed Mixed hyperlipidemia Essential hypertension, benign Obesity, Class II, BMI 35-39.9 Obesity, unspecified documented [facility]* Diagnosis Onset Date Resolution Status Admit Date Postmenopausal bleeding acute S eptember 2024 12:58pm [facility] Work Phone: Hospital Discharge instructionsAdditional Instructions Follow-up with Dr. Abisai Farnsworth. Return if heavy bleeding.[facility] Work Phone: Progress note Author Anushka [facility] Note Date/Time June 21, 2025 1:32pm [facility] [address] [place] [address], [address] [place] [address] OFFICE VISIT Date of Service: 06/21/25 MR#: [id number] Acct: [id number] Name: DEONTE BLANCO Rep #: [id number] : 1955 Provider: Dr. Elvis Isaac MD Age/Sex: 69/F [place] [facility] [place]: Signed Intake Vital Signs 05/25/25 21:39 06/21/25 13:02 Height 5 ft 5 ft Weight: 222 lb 184 lb 3 oz BMI 43.3 35.9 BP 164/104 H 149/74 H Respiration 18 Pulse 100 Temp 98.2 F Pulse Oximetry (%) 97 Intake Visit Reasons: ER follow up heavy bleeding Chief Complaint: ER FU Heavy Bleeding Butter Printer Required: No Is patient in pain?: No [...] mg PO MOWEFR 07/21/24 0 06/21/25 History ([place] Thyroid) insulin glargine 100 unit/mL (3 25 [...] Cosigner Signature: Date (if applicable) CC: ~ [facility] Work Phone: Reason for referral (narrative)* Diagnostic Procedure Only (Urgent) - Closed Specialty Diagnoses / Procedures Referred By Contac t Referred To Contact XR IMAGING Diagnoses Acute left ankle pain Procedures XR ANKLE GENERAL 3V AP/LAT/OBL LEFT RADEX ANKLE COMPLETE MINIMUM 3 VIEWS Nataly Ryan, [place].DRAW FIRE OPERATOR [address] [place] [address] Xr Imaging Referral ID Status Reason Start Date Expiration Date V isits Requested Visits Authorized [id number] Closed Auto-Generate d Referral 01/23/2022 09/27/2022 1 1 [facility] for referral (narrative)* Diagnostic Procedure Only (Routine) - Authorized Specialty Diagnoses / Procedures Referred By Contac t Referred To Contact XR IMAGING Diagnoses Closed fracture of distal end of left fibula, unspecified fracture morphology, initial encounter Procedures XR ANKLE GENERAL 3V AP/LAT/OBL LEFT RADEX ANKLE COMPLETE MINIMUM 3 VIEWS Steve Rodriguez [address] [place] [address] Xr Imaging Referral ID Status Reason Start Date Expiration Date Visits Requested Visits Authorized [id number] Authorized Auto-Generat ed Referral 02/10/2022 09/27/2022 1 1 [facility] for referral (narrative)* Diagnostic Procedure Only (Routine) - Closed Specialty Diagnoses / Procedures Referred By Contac t Referred To Contact XR IMAGING Diagnoses Closed fracture of distal end of left fibula, unspecified fracture morphology, initial encounter Procedures XR ANKLE GENERAL 3V AP/LAT/OBL LEFT RADEX ANKLE COMPLETE MINIMUM 3 VIEWS Steve Rodriguez [address] [place] [address] Xr Imaging Referral ID Status Reason Start Date Expiration Date V isits Requested Visits Authorized [id number] Closed Auto-Generate d Referral 02/10/2022 09/27/2022 1 1 [facility] for referral (narrative)* Outpatient Procedure (Routine) - Open Specialty Diagnoses / Procedures Referred By Contac t Referred To [facility] Diagnoses Uncontrolled hypertension Palpitations Procedures US RENAL ARTERY ZULMA VAS LAB DUP-SCAN ARTL SKYLAR ABDL/PEL/SCROT&/RPR ORGN COM Preet Farrar DO [address] [place] [address] [facility] [place] [address] [place] [address] Referral ID Status Reason Start Date Expiration Date V isits Requested Visits Authorized [id number] Open Auto-Generate d Referral 02/19/2022 02/19/2023 1 1 * Outpatient Procedure (Routine) - Closed Specialty Diagnoses / Procedures Referred By Contac t Referred To Contact [facility] Diagnoses Uncontrolled hypertension Palpitations Procedures ECG COMPLETE ECG ROUTINE ECG W/LEAST 12 LDS W/I&R Preet Farrar DO [address] [place] [address] [address] Referral ID Status Reason Start Date Expiration Date V isits Requested Visits Authorized [id number] Closed Auto-Generate d Referral 02/19/2022 02/19/2023 1 1 * Outpatient Procedure (Routine) - Authorized Specialty Diagnoses / Procedures Referred By Contac t Referred To Contact [facility] Diagnoses Uncontrolled hypertension Palpitations Procedures ECHO ECHO TTHRC R-T 2D W/WOM-MODE COMPL SPEC&COLR D Preet Farrar DO [address] [place] [address] [address] Referral ID Status Reason Start Date Expiration Date Visits Requested Visits Authorized [id number] Authorized Auto-Generat ed Referral 02/19/2022 02/19/2023 1 1 * Outpatient Procedure (Routine) - Open Specialty Diagnoses / Procedures [facility] To Contact [facility] Diagnoses Uncontrolled hypertension Palpitations Procedures US CAROTID ARTERIES ZULMA VAS LAB DUPLEX SCAN EXTRACRANIAL ART COMPL BI STUDY Preet Farrar DO [address] [place] [address] [address] Referral ID Status Reason Start Date Expiration Date V isits Requested Visits Authorized [id number] Open Auto-Generate d Referral 02/19/2022 02/19/2023 1 1 [facility] for referral (narrative)* Diagnostic Procedure Only (Routine) - Closed Specialty Diagnoses / Procedures Referred By Contac t Referred To Contact XR IMAGING Diagnoses Closed fracture of distal end of left fibula, unspecified fracture morphology, initial encounter Procedures XR ANKLE GENERAL 3V AP/LAT/OBL LEFT RADEX ANKLE COMPLETE MINIMUM 3 VIEWS Steve Rodriguez [address] [place] [address] Xr Imaging Referral ID Status Reason Start Date Expiration Date V isits Requested Visits Authorized [id number] Closed Auto-Generate d Referral 02/28/2022 03/30/2023 1 1 T [facility] for referral (narrative)* Diagnostic Procedure Only (Routine) - Pending Review Specialty Diagnoses / Procedures Referred By Miguel Ángel t Referred To Contact BR [facility] Diagnoses Encounter for screening mammogram for breast cancer Procedures LAURO SCREENING SCREENING MAMMOGRAPHY BI 2-VIEW BREAST INC CAD Preet Farrar, DO [address] [place] [address] [facility] [address] [place] [address] Referral ID Status Reason Start Date Expiration Date Visits Requested Visits Authorized [id number] Pending Review Auto-Generat ed Referral 03/26/2022 04/25/2023 1 1 T [facility] for referral (narrative)* Diagnostic Procedure Only (Routine) - Pending Review Specialty Diagnoses / Procedures Referred By Miguel Ángel t Referred To Contact BR IM[facility] Diagnoses Encounter for screening mammogram for breast cancer Procedures LAURO SCREENING SCREENING MAMMOGRAPHY BI 2-VIEW BREAST INC CAD Preet Farrar, DO [address] [place] [address] [facility] [address] [place] [address] Referral ID Status Reason Start Date Expiration Date Visits Requested Visits Authorized [id number] Pending Review Auto-Generat ed Referral 02/03/2024 03/04/2025 1 1 [facility] for referral (narrative)* Diagnostic Procedure Only (Urgent) - Closed Specialty Diagnoses / Procedures Referred By Contac t Referred To Contact XR IMAGING Diagnoses Acute left ankle pain Procedures XR ANKLE GENERAL 3V AP/LAT/OBL LEFT RADEX ANKLE COMPLETE MINIMUM 3 VIEWS Nataly Ryan APRN.DRAW FIRE OPERATOR [address] [place] [address] [place] [address] Referral ID Status Reason Start Date Expiration Date V isits Requested Visits Authorized [id number] Closed Auto-Generate d Referral 01/23/2022 09/27/2022 1 1 [facility] for referral (narrative)No reason for [facility] Work Phone: Reason for visit Narrative* Diagnostic Procedure Only (Routine) - Closed Specialty Diagnoses / Procedures Referred By Contac t Referred To Contact XR IMAGING Diagnoses Closed fracture of distal end of left fibula, unspecified fracture morphology, initial encounter Procedures XR ANKLE GENERAL 3V AP/LAT/OBL LEFT RADEX ANKLE COMPLETE MINIMUM 3 VIEWS Steve Rodriguez [address] [place] [address] Xr Imaging Referral ID Status Reason Start Date Expiration Date V isits Requested Visits Authorized [id number] Closed Auto-Generate d Referral 02/10/2022 09/27/2022 1 1 [facility] for visit Narrative* Diagnostic Procedure Only (Routine) - Closed Specialty Diagnoses / Procedures Referred By Contac t Referred To Contact XR IMAGING Diagnoses Closed fracture of distal end of left fibula, unspecified fracture morphology, initial encounter Procedures XR ANKLE GENERAL 3V AP/LAT/OBL LEFT RADEX ANKLE COMPLETE MINIMUM 3 VIEWS Steve Rodriguez [address] [place] [address] Xr Imaging Referral ID Status Reason Start Date Expiration Date V isits Requested Visits Authorized [id number] Closed Auto-Generate d Referral 02/28/2022 09/27/2022 1 1 [facility] for visit Narrative* Diagnostic Procedure Only (Urgent) - Closed Specialty Diagnoses / Procedures Referred By Contac t Referred To Contact XR IMAGING Diagnoses Acute left ankle pain Procedures XR ANKLE GENERAL 3V AP/LAT/OBL LEFT RADEX ANKLE COMPLETE MINIMUM 3 VIEWS Nataly Ryan APRN.DRAW FIRE OPERATOR [address] [place] [address] [place] [address] Referral ID Status Reason Start Date Expiration Date V isits Requested Visits Authorized [id number] Closed Auto-Generate d Referral 01/23/2022 09/27/2022 1 1 [facility] Discharge Instructions * Discharge Instr - DOMINIK* [...] file. Discharging Nurse: Valarie Discharging Hospital Unit/Room#: 6134/401581 Discharging Unit Emergency Contact: Extended Emergency Contact [...] Assisted Dressing Assisted Toileting Assisted Feeding Independent Casing Sewer Independent Med Delivery whole Wound Care Documentation [...] Discharging to Facility/ Agency Name: [facility] Address: [address] [place] [address] Dialysis Facility (if applicable) Name: Address: Dialysis Schedule: Phone: Fax: Signal Engineer/Animal Doctor signature: ICIAN SECTION Prognosis: Fair Condition at [...] level decreases, you may begin to take [id number] Extra Strength Tylenol. The maximum Tylenol you [...] you are to contact the office at [phone] or via Turn, for additional refills You can receive up [...] additional questions/concerns, please contact the office at Turn message For life-threathening emergency, please call 911 documented in this encounter History of Present Illness * Vera Campbell DTR - 12/28/2020 1:02 PM EDT Nutrition update completed. Chart reviewed. Patient to be monitored and followed by the diet pv design and installation technician. * Steve Veloz - 12/28/2020 12:04 PM EDT Physical Therapy Facility/Department: [facility] Daily Treatment Note NAME: Deonte Blanco [...] technique. Pt. is getting discharged today to [facility]. Pt. was in better spirits today [...] stated she was excited to go to [facility] because her kids are closer. Pt. [...] 1 supine to sit (OK for leg shot bagger or manual support of LEs) - PROGRESSING Short term goal 2: Sitting EOB 03[birth year]07 Modified [place] - PROGRESSING Short term goal 3: Transfer board to w/c min of 1 - progresing Short term goal 4: Gross LLE antigravity strength 3-/5, RLE 2/5 - PROGRESSING Short term goal 5: pt/ family indep donning LSO - PROGRESSING registered pharmacy technician goals Time Frame for registered pharmacy technician goals : 4 weeks [facility] goal 1: Bed mobility indep - PROGRESSING [facility] goal 2: Bed to chair, any safe approach, supv - PROGRESSING [facility] goal 3: Sit to stand mod of 1 - PROGRESSING [facility] goal 4: Sitting balance modified [place] 06/07, standing 12/05 - PROGRESSING registered pharmacy technician goal 5: Amb 15', device, mod of [...] mask when out of room FRANCOIS Jacobsen ENGINE TESTING SUPERVISOR * Valarie Aguilar RN - 12/28/2020 11:52 AM EDT Report called to [facility]. furniture assembly supervisor time 1400 * Tammi Rae DO - 12/27/2020 6:36 PM EDT Images from the original note were not included. Hospitalist Progress Note 12/27/2020 6:36 PM Subjective: Admit Date: 12/21/2020 PCP: No primary care provider on file. Interval History: No overnight issues. DIET GENERAL; I/O last 3 completed shifts: In: 200 [P.O.:200] Out: 1 [Urine:1] Date 12/27/20 0000 - 12/27/20 2359 Shift [id number] 3409-5887 [id number] 24 Hour Total INTAKE P.O.(mL/kg/hr) 300(0.5) 240 [...] CHOL No results found for: PHART, PO2ART, ORI3KGI No results for input(s): INR in the [...] For question after 7 PM, please contact [facility] hospitalist on consult. Tammi Rae MD [facility] Hospitalist * Steve Veloz - 12/27/2020 11:10 AM EDT Physical Therapy Facility/Department: [facility] Daily Treatment Note NAME: Deonte March [...] 1 supine to sit (OK for leg shot bagger or manual support of LEs) - PROGRESSING Short term goal 2: Sitting EOB [birth year] Modified [place] - PROGRESSING Short term goal 3: Transfer board to w/c min of 1 - NOT ADDRESSED Short term goal 4: Gross LLE antigravity strength 3-/5, RLE 2/5 - PROGRESSING Short term goal 5: pt/ family indep donning LSO - PROGRESSING registered pharmacy technician goals Time Frame for [facility] goals : 4 weeks registered pharmacy technician goal 1: Bed mobility indep - PROGRESSING [facility] goal 2: Bed to chair, any safe approach, supv - PROGRESSING registered pharmacy technician goal 3: Sit to stand mod of 1 - PROGRESSING [facility] goal 4: Sitting balance modified [place] 06/07, standing 10 - PROGRESSING [facility] goal 5: Amb 15', device, mod of [...] mask when out of room FRANCOIS Jacobsen, ENGINE TESTING SUPERVISOR * Tammi Rae, DO - 12/26/2020 9:59 AM EDT Images from the original note were not included. Hospitalist Progress Note 12/26/2020 5:59 PM Subjective: Admit Date: 12/21/2020 PCP: No primary care provider on file. Interval History: No overnight issues. DIET GENERAL; I/O last 3 completed shifts: In: 2300 [P.O.:2300] Out: 1100 [Urine:1100] Date 12/26/20 0000 - 12/26/20 2359 Shift [id number] [phone] 24 Hour Total INTAKE P.O.(mL/kg/hr) 600(0.9) 200(0.3) [...] CHOL No results found for: PHART, PO2ART, VCC3AGP No results for input(s): INR in the [...] For question after 7 PM, please contact [facility] hospitalist on consult. Tammi Rae MD [facility] * Mayte Gunter MD - 12/25/2020 12:46 PM EDT Hospitalist Progress Note 12/25/2020 12:46 PM Subjective: Admit Date: 12/21/2020 PCP: No primary care provider on file. Interval History: No overnight issues. DIET GENERAL; I/O last 3 completed shifts: In: - Out: 1900 [Urine:1900] Date 12/25/20 0000 - 12/25/20 2359 Shift [id number] [phone] 24 Hour Total INTAKE Shift Total(mL/kg) OUTPUT [...] CHOL No results found for: PHART, PO2ART, IXF7AHD No results for input(s): INR in the [...] relistor. PT/OT Awaiting rehab Mayte Gunter MD [facility] * Jemima Bonilla OT - 12/25/2020 [...] Ambulation Assistance: Independent Transfer Assistance: Independent Active Software Test Technician: Yes Occupation: Retired [employer]AD[employer] Comments: pt had [...] & procurement, Self-Care / ADL OutComes Score [facility] Daily Activity Inpatient How much help for putting on and taking off regular lower body clothing?: Total How much help for Bathing?: A Lot How much help for Toileting?: Total How much help for putting on and taking off regular upper body clothing?: A Little How much help for taking care of personal grooming?: None How much help for eating meals?: None [facility] Inpatient Daily Activity Raw Score: 15 AM-[facility] Inpatient ADL T-Scale Score : 34.69 ADL [...] Plan of Care supervision is transferred to [facility] Occupational Therapist. Goals and/or treatment plan was established in collaboration with patient/family/other representatives. Jemima Bonilla OTR/Keshia Bonilla OT * Ness Aparicio PTA - 12/25/2020 10:21 AM EDT Physical Therapy Facility/Department: [facility] Daily Treatment Note NAME: Deonte Blanco [...] 1 supine to sit (OK for leg shot bagger or manual support of LEs) - PROGRESSING Short term goal 2: Sitting EOB [birth year] Modified [place] - PROGRESSING Short term goal 3: Transfer board to w/c min of 1 - NOT ADDRESSED Short term goal 4: Gross LLE antigravity strength 3-/5, RLE 2/5 - PROGRESSING Short term goal 5: pt/ family indep donning LSO - PROGRESSING [facility] goals Time Frame for [facility] goals : 4 weeks registered pharmacy technician goal 1: Bed mobility indep - PROGRESSING [facility] goal 2: Bed to chair, any safe approach, supv - PROGRESSING registered pharmacy technician goal 3: Sit to stand mod of 1 - PROGRESSING [facility] goal 4: Sitting balance modified [place] 06/07, standing 12/05 - PROGRESSING registered pharmacy technician goal 5: Amb 15', device, mod of [...] Date 12/24/20 0000 - 12/24/20 2359 Shift [id number] 24 Hour Total INTAKE Shift Total(mL/kg) OUTPUT [...] CHOL No results found for: PHART, PO2ART, OFF8TEF No results for input(s): INR in the [...] Plan for rehab Mayte Gunter MD [facility] Hospitalist * Steve Martinez MD - 12/24/2020 [...] AVS -Ortho to sign off, please page extension service agent resident with questions or concerns Treva Henderson [...] Date 12/23/20 0000 - 12/23/20 2359 Shift [id number] [phone] 24 Hour Total INTAKE P.O.(mL/kg/hr) 400(0.6) 400 [...] CHOL No results found for: PHART, PO2ART, UZK7ECP Recent Labs 12/21/20 0528 INR 1.0 No [...] 12/23/2020 11:24 AM EDT Physical Therapy Facility/Department: [facility] Daily Treatment Note NAME: Deonte Blanco [...] 1 supine to sit (OK for leg shot bagger or manual support of LEs) - PROGRESSING Short term goal 2: Sitting EOB 6/10 Modified [place] - PROGRESSING Short term goal 3: Transfer board to w/c min of 1 - NOT MET Short term goal 4: Gross LLE antigravity strength 3-/5, RLE 2/5 - NOT MET Short term goal 5: pt/ family indep donning LSO - PROGRESSING [facility] goals Time Frame for [facility] goals : 4 weeks registered pharmacy technician goal 1: Bed mobility indep - PROGRESSING [facility] goal 2: Bed to chair, any safe approach, supv - NOT ATTEMPTED [facility] goal 3: Sit to stand mod of 1 - NOT MET [facility] goal 4: Sitting balance modified [place] 9/10, standing 3/10 - PROGRESSING [facility] goal 5: Amb 15', device, mod of [...] was completed by a student physical therapist perinatal breastfeeding assistant under the supervision of the cosigning therapist. Dori Candelario, ENGINE TESTING SUPERVISOR\ * Sulaiman Youngblood MD - 12/23/2020 9:56 [...] be monitored and followed by the diet pv design and installation technician. * Mayte Gunter MD - 12/22/2020 12:02 PM EDT Hospitalist Progress Note 12/22/2020 12:02 PM Subjective: Admit Date: 12/21/2020 PCP: No primary care provider on file. Interval History: No overnight issues. DIET GENERAL; I/O last 3 completed shifts: In: 2030 [P.O.:180; I.V.:1850] Out: 2640 [Urine:2250; Drains:140; Blood:250] Date 12/22/20 0000 - 12/22/20 2359 Shift [id number] [phone] 24 Hour Total INTAKE Shift Total(mL/kg) OUTPUT [...] CHOL No results found for: PHART, PO2ART, QOE9EYQ Recent Labs 12/21/20 0528 INR 1.0 No [...] 12/22/2020 11:30 AM EDT Physical Therapy Facility/Department: [facility] Initial Assessment NAME: Deonte Blanco : [...] Will procure multipodus orthotics for now--consult to [email or web address] for LSO. Pt plans/ hopes to be discharged to [facility]--rehab level PT seems most appropriate. Prognosis: [...] (pt has order for LSO (consult to [employer])) Position Activity Restriction Spinal Precautions: No Bending, [...] she called squad to take her to [facility]. 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[employer] Comments: pt had [...] extn R 1/5, L 2-/5, ADD 2-/5 zluma, Hip flex R 0/5, L 1/5, ABD [...] notified as IV with air-in-line) AM-PAC Score AM-[facility] Inpatient Mobility Raw Score : 6 (12/22/20 [...] 1 supine to sit (OK for leg shot bagger or manual support of LEs) Short term goal 2: Sitting EOB 03/07 Modified [place] Short term goal 3: Transfer board to w/c min of 1 Short term goal 4: Gross LLE antigravity strength 3-/5, RLE 2/5 Short term goal 5: pt/ family indep donning LSO [facility] goals Time Frame for [facility] goals : 4 weeks registered pharmacy technician goal 1: Bed mobility indep registered pharmacy technician goal 2: Bed to chair, any safe approach, supv registered pharmacy technician goal 3: Sit to stand mod of 1 [facility] goal 4: Sitting balance modified [place] 9/10, standing 3/10 registered pharmacy technician goal 5: Amb 15', device, mod of 1 Patient Goals Patient goals : walk Therapy Time Individual Concurrent Group Co-treatment Time In 1026 Time Out 1104 Minutes 38 Patient s Physical Therapy Plan of Care supervision is transferred to [facility] Rehab Department Physical Therapist. PT wore [...] No December 31, 2020 3:01pm Power of Pad Extraction Tender No December 31 3:01pm Advance Directive Response Recorded Date/ Time Name of Medical Power of Pad Extraction Tender amanuel Greer November 02, 2022 5:30pm Living Will No November 02 5:30pm Power of Pad Extraction Tender Yes November 02, 2022 5:30pm Advance Directive Response Recorded Date/ Time Living Will No November 02 6:30pm Power of Pad Extraction Tender Yes November 02, 2022 6:30pm Advance Directive Response Recorded Date/ Time Living Will No July 01 8:20pm Power of Pad Extraction Tender No July 01 8:20pm Advance Directive Response Recorded Date/ Time Living Will No December 27, 2024 6:19pm Do you have a Healthcare Power of Pad Extraction Tender? No December 27, 2024 6:19pm Advance Directive Response Recorded Date/ Time Living Will No December 27, 2024 6:19pm Do you have a Healthcare Power of Pad Extraction Tender? No December 27, 2024 6:19pm Do you have a Healthcare Power of Pad Extraction Tender? No April 15, 2025 1:41pm Advance Directive Response Recorded Date/ Time Do you have a Healthcare Power of Pad Extraction Tender? No April 15, 2025 1:41pm Do you have a Healthcare Power of Pad Extraction Tender? No May 25, 2025 9:45pm Summary Purpose [...] diabetes mellitus with hyperglycemia (HCC) Kathryn Rivero, RECREATION THERAPY AIDES TEACHER.DRAW FIRE OPERATOR [address] [place] [address] Referral ID Status Reason Start Date Expiration Date Visits Re quested Visits Authorized [id number] Denied 1 1 Specialty Diagnoses / Procedures Referred By Contac t Referred To Contact Cardiology Diagnoses Uncontrolled type 2 diabetes mellitus with hyperglycemia (HCC) Nonrheumatic aortic valve stenosis Hyperlipidemia, mixed Procedures CONSULT TO CARDIOLOGY OFFICE/OUTPATIENT [facility] 60 MINUTES Preet Farrar, [address] [place] [address] Referral ID Status Reason Start Date Expiration Date Visits Requested Visits Authorized [id number] Authorized PCP Requested Referral 12/09/2023 12/08/2024 1 1 Specialty Diagnoses / Procedures Referred By Contac t Referred To Contact Diagnoses Uncontrolled type 2 diabetes mellitus with hyperglycemia (HCC) Vaginal yeast infection Jacqueline Candelario, RECREATION THERAPY AIDES TEACHER.DRAW FIRE OPERATOR [address] [place] [address] Referral ID Status Reason Start Date Expiration Date V isits Requested Visits Authorized [id number] Authorized 01/27/2024 09/27/2024 1 1 Specialty Diagnoses / Procedures Referred By Contac t Referred To Contact Endocrinology Diagnoses Uncontrolled type 2 diabetes mellitus with hyperglycemia (HCC) Procedures CONSULT TO ENDOCRINOLOGY OFFICE/OUTPATIENT NEW HIGH MDM 60 MINUTES Preet Farrar DO [address] [place] [address] Referral ID Status Reason Start Date Expiration Date Visits Requested Visits Authorized [id number] Authorized PCP Requested Referral 03/21/2024 03/21/2025 1 1 Specialty Diagnoses / Procedures Referred By Contac t Referred To Contact Gynecology Diagnoses LLQ pain Thickened endometrium Procedures CONSULT TO GYNECOLOGY OFFICE/OUTPATIENT NEW HIGH MDM 60 MINUTES AlvaradologCatalina arreguin APRN.DRAW FIRE OPERATOR [address] [place] [address] Referral ID Status Reason Start Date Expiration Date Visits Requested Visits Authorized [id number] Authorized PCP Requested Referral Auto-Generate d Referral [...] sprain Procedures URGENT CARE Self Nataly Ryan APRN.DRAW FIRE OPERATOR [address] [place] [id number] Referral ID Status Reason Start Date Expiration Date Visits Re quested Visits Authorized [id number] Closed 01/23/2022 09/27/2022 1 1 Reason Comments New Patient Fracture Specialty Diagnoses / Procedures Referred By Contac t Referred To Contact Podiatry / PODIATRY Diagnoses foot fracture Procedures PANCHITO NEW FRACTURE Nataly Ryan APRN.DRAW FIRE OPERATOR [address] [place] [address] [address] [place] [address] Referral ID Status Reason Start Date Expiration Date Visits Re quested Visits Authorized [id number] Closed 01/30/2022 09/27/2022 1 1 Reason Comments Blood Pressure Specialty Diagnoses / Procedures Referred By Contac t Referred To Contact Family Practice / FAMILY MEDICINE Diagnoses Elevated BP. UC f/u 428, left ankle fracture. Procedures 4C EST Self Kathryn Rivero, RECREATION THERAPY AIDES TEACHER.DRAW FIRE OPERATOR [address] [place] [address] Referral ID Status Reason Start Date Expiration Date Visits Re quested Visits Authorized [id number] Closed 01/31/2022 09/27/2022 1 1 Reason Comments Follow Up Specialty Diagnoses / Procedures Referred By Contwiliam t Referred To Contact Family Practice / FAMILY MEDICINE Diagnoses Follow up BP, Thyroid Procedures 4C EST Preet Farrar, DO [address] [place] [address] Preet Farrar, DO [address] [place] [address] Referral ID Status Reason Start Date Expiration Date Visits Re quested Visits Authorized [id number] Closed 02/19/2022 09/27/2022 1 1 Reason Onset [...] Date Comments Refill Request 03/03/2023 Reason Comments [place] thyroid PA Reason Comments go over blood [...] Date Comments Population Health Navigation Outreach 07/29/2023 [facility] care gap Reason Comments Medication Question [...] Comments Transition Of Care Reason Comments Insulin [place] Reason Comments Patient Update Blood Sugar Readings Reason Comments Type 2 Diabetes Reason Comments Future Appointment Reason Onset Date Comments Refill Request 05/23/2024 Reason Comments ER F/U 05/22/2024 [facility] for le ft lower quadrant pain Reason Onset Date Comments Refill Request 06/15/2024 Reason Onset Date Comments Refill Request 06/17/2024 Reason Comments Faxed Labs Surgical Clearance Forms Reason Onset Date Comments Population [facility] Navigation Outreach 08/09/2024 [facility] Reason [...] Refill Request 04/03/2025 Reason Comments ER F/U [facility] 04/15 for hypergl ycemia, nausea, dizzy, BS [...] section and content) DATE CREATED AUTHOR 09/18/2021 [facility] DATE CREATED AUTHOR AUTHOR'S ORGANIZ ATION 12/20/2023 [facility] ([place]) DATE CREATED AUTHOR AUTHOR'S ORGANIZ ATION 06/06/[address] [facility] DATE CREATED AUTHOR AUTHOR'S ORGANIZ ATION 07/08/2025 [facility] Source Comments (unrecognize d section and content) In the event this informatio n is protected by the Federal Confidentiality of Alcohol and Drug Abuse Patient Records regulations: The Federal rules restrict any use of the information to criminally investigate or prosecute any alcohol or drug abuse patient.[facility] the event this information is protected by the Federal Confidentiality of Alcohol and Drug Abuse Patient Records regulations: The Federal rules restrict any use of the information to criminally investigate or prosecute any alcohol or drug abuse patient.[facility]In the event this information is protected by the Federal Confidentiality of Alcohol and Drug Abuse Patient Records regulations: The Federal rules restrict any use of the information to criminally investigate or prosecute any alcohol or drug abuse patient.[facility]In the event this information is protected by the Federal Confidentiality of Alcohol and Drug Abuse Patient Records regulations: The Federal rules restrict any use of the information to criminally investigate or prosecute any alcohol or drug abuse patient.[facility]In the event this information is protected by the Federal Confidentiality of Alcohol and Drug Abuse Patient Records regulations: The Federal rules restrict any use of the information to criminally investigate or prosecute any alcohol or drug abuse patient.[facility]In the event this information is protected by the Federal Confidentiality of Alcohol and Drug Abuse Patient Records regulations: The Federal rules restrict any use of the information to criminally investigate or prosecute any alcohol or drug abuse patient.[facility] WestIn the event this information is protected by the Federal Confidentiality of Alcohol and Drug Abuse Patient Records regulations: The Federal rules restrict any use of the information to criminally investigate or prosecute any alcohol or drug abuse patient.[facility]In the event this information is protected by the Federal Confidentiality of Alcohol and Drug Abuse Patient Records regulations: The Federal rules restrict any use of the information to criminally investigate or prosecute any alcohol or drug abuse patient.[facility]In the event this information is protected by the Federal Confidentiality of Alcohol and Drug Abuse Patient Records regulations: The Federal rules restrict any use of the information to criminally investigate or prosecute any alcohol or drug abuse patient.[facility] WestIn the event this information is protected by the Federal Confidentiality of Alcohol and Drug Abuse Patient Records regulations: The Federal rules restrict any use of the information to criminally investigate or prosecute any alcohol or drug abuse patient.[facility]In the event this information is protected by the Federal Confidentiality of Alcohol and Drug Abuse Patient Records regulations: The Federal rules restrict any use of the information to criminally investigate or prosecute any alcohol or drug abuse patient.[facility] WestIn the event this information is protected by the Federal Confidentiality of Alcohol and Drug Abuse Patient Records regulations: The Federal rules restrict any use of the information to criminally investigate or prosecute any alcohol or drug abuse patient.[facility] WestIn the event this information is protected by the Federal Confidentiality of Alcohol and Drug Abuse Patient Records regulations: The Federal rules restrict any use of the information to criminally investigate or prosecute any alcohol or drug abuse patient.[facility]In the event this information is protected by the Federal Confidentiality of Alcohol and Drug Abuse Patient Records regulations: The Federal rules restrict any use of the information to criminally investigate or prosecute any alcohol or drug abuse patient.[facility] WestIn the event this information is protected by the Federal Confidentiality of Alcohol and Drug Abuse Patient Records regulations: The Federal rules restrict any use of the information to criminally investigate or prosecute any alcohol or drug abuse patient.[facility] WestIn the event this information is protected by the Federal Confidentiality of Alcohol and Drug Abuse Patient Records regulations: The Federal rules restrict any use of the information to criminally investigate or prosecute any alcohol or drug abuse patient.[facility] WestIn the event this information is protected by the Federal Confidentiality of Alcohol and Drug Abuse Patient Records regulations: The Federal rules restrict any use of the information to criminally investigate or prosecute any alcohol or drug abuse patient.[facility] WestIn the event this information is protected by the Federal Confidentiality of Alcohol and Drug Abuse Patient Records regulations: The Federal rules restrict any use of the information to criminally investigate or prosecute any alcohol or drug abuse patient.[facility] WestIn the event this information is protected by the Federal Confidentiality of Alcohol and Drug Abuse Patient Records regulations: The Federal rules restrict any use of the information to criminally investigate or prosecute any alcohol or drug abuse patient.[facility] WestIn the event this information is protected by the Federal Confidentiality of Alcohol and Drug Abuse Patient Records regulations: The Federal rules restrict any use of the information to criminally investigate or prosecute any alcohol or drug abuse patient.[facility] WestIn the event this information is protected by the Federal Confidentiality of Alcohol and Drug Abuse Patient Records regulations: The Federal rules restrict any use of the information to criminally investigate or prosecute any alcohol or drug abuse patient.[facility] WestIn the event this information is protected by the Federal Confidentiality of Alcohol and Drug Abuse Patient Records regulations: The Federal rules restrict any use of the information to criminally investigate or prosecute any alcohol or drug abuse patient.[facility] WestIn the event this information is protected by the Federal Confidentiality of Alcohol and Drug Abuse Patient Records regulations: The Federal rules restrict any use of the information to criminally investigate or prosecute any alcohol or drug abuse patient.[facility] WestIn the event this information is protected by the Federal Confidentiality of Alcohol and Drug Abuse Patient Records regulations: The Federal rules restrict any use of the information to criminally investigate or prosecute any alcohol or drug abuse patient.[facility] WestIn the event this information is protected by the Federal Confidentiality of Alcohol and Drug Abuse Patient Records regulations: The Federal rules restrict any use of the information to criminally investigate or prosecute any alcohol or drug abuse patient.[facility] WestIn the event this information is protected by the Federal Confidentiality of Alcohol and Drug Abuse Patient Records regulations: The Federal rules restrict any use of the information to criminally investigate or prosecute any alcohol or drug abuse patient.[facility] WestIn the event this information is protected by the Federal Confidentiality of Alcohol and Drug Abuse Patient Records regulations: The Federal rules restrict any use of the information to criminally investigate or prosecute any alcohol or drug abuse patient.[facility] WestIn the event this information is protected by the Federal Confidentiality of Alcohol and Drug Abuse Patient Records regulations: The Federal rules restrict any use of the information to criminally investigate or prosecute any alcohol or drug abuse patient.[facility] WestIn the event this information is protected by the Federal Confidentiality of Alcohol and Drug Abuse Patient Records regulations: The Federal rules restrict any use of the information to criminally investigate or prosecute any alcohol or drug abuse patient.[facility] WestIn the event this information is protected by the Federal Confidentiality of Alcohol and Drug Abuse Patient Records regulations: The Federal rules restrict any use of the information to criminally investigate or prosecute any alcohol or drug abuse patient.[facility] WestIn the event this information is protected by the Federal Confidentiality of Alcohol and Drug Abuse Patient Records regulations: The Federal rules restrict any use of the information to criminally investigate or prosecute any alcohol or drug abuse patient.[facility] WestIn the event this information is protected by the Federal Confidentiality of Alcohol and Drug Abuse Patient Records regulations: The Federal rules restrict any use of the information to criminally investigate or prosecute any alcohol or drug abuse patient.[facility] WestIn the event this information is protected by the Federal Confidentiality of Alcohol and Drug Abuse Patient Records regulations: The Federal rules restrict any use of the information to criminally investigate or prosecute any alcohol or drug abuse patient.[facility] WestIn the event this information is protected by the Federal Confidentiality of Alcohol and Drug Abuse Patient Records regulations: The Federal rules restrict any use of the information to criminally investigate or prosecute any alcohol or drug abuse patient.[facility] WestIn the event this information is protected by the Federal Confidentiality of Alcohol and Drug Abuse Patient Records regulations: The Federal rules restrict any use of the information to criminally investigate or prosecute any alcohol or drug abuse patient.[facility] WestIn the event this information is protected by the Federal Confidentiality of Alcohol and Drug Abuse Patient Records regulations: The Federal rules restrict any use of the information to criminally investigate or prosecute any alcohol or drug abuse patient.[facility] WestIn the event this information is protected by the Federal Confidentiality of Alcohol and Drug Abuse Patient Records regulations: The Federal rules restrict any use of the information to criminally investigate or prosecute any alcohol or drug abuse patient.[facility] WestIn the event this information is protected by the Federal Confidentiality of Alcohol and Drug Abuse Patient Records regulations: The Federal rules restrict any use of the information to criminally investigate or prosecute any alcohol or drug abuse patient.[facility] WestIn the event this information is protected by the Federal Confidentiality of Alcohol and Drug Abuse Patient Records regulations: The Federal rules restrict any use of the information to criminally investigate or prosecute any alcohol or drug abuse patient.[facility] WestIn the event this information is protected by the Federal Confidentiality of Alcohol and Drug Abuse Patient Records regulations: The Federal rules restrict any use of the information to criminally investigate or prosecute any alcohol or drug abuse patient.[facility] WestIn the event this information is protected by the Federal Confidentiality of Alcohol and Drug Abuse Patient Records regulations: The Federal rules restrict any use of the information to criminally investigate or prosecute any alcohol or drug abuse patient.[facility] WestIn the event this information is protected by the Federal Confidentiality of Alcohol and Drug Abuse Patient Records regulations: The Federal rules restrict any use of the information to criminally investigate or prosecute any alcohol or drug abuse patient.[facility] WestIn the event this information is protected by the Federal Confidentiality of Alcohol and Drug Abuse Patient Records regulations: The Federal rules restrict any use of the information to criminally investigate or prosecute any alcohol or drug abuse patient.[facility] WestIn the event this information is protected by the Federal Confidentiality of Alcohol and Drug Abuse Patient Records regulations: The Federal rules restrict any use of the information to criminally investigate or prosecute any alcohol or drug abuse patient.[facility] WestIn the event this information is protected by the Federal Confidentiality of Alcohol and Drug Abuse Patient Records regulations: The Federal rules restrict any use of the information to criminally investigate or prosecute any alcohol or drug abuse patient.[facility] WestIn the event this information is protected by the Federal Confidentiality of Alcohol and Drug Abuse Patient Records regulations: The Federal rules restrict any use of the information to criminally investigate or prosecute any alcohol or drug abuse patient.[facility] WestIn the event this information is protected by the Federal Confidentiality of Alcohol and Drug Abuse Patient Records regulations: The Federal rules restrict any use of the information to criminally investigate or prosecute any alcohol or drug abuse patient.[facility] WestIn the event this information is protected by the Federal Confidentiality of Alcohol and Drug Abuse Patient Records regulations: The Federal rules restrict any use of the information to criminally investigate or prosecute any alcohol or drug abuse patient.[facility] WestIn the event this information is protected by the Federal Confidentiality of Alcohol and Drug Abuse Patient Records regulations: The Federal rules restrict any use of the information to criminally investigate or prosecute any alcohol or drug abuse patient.[facility] WestIn the event this information is protected by the Federal Confidentiality of Alcohol and Drug Abuse Patient Records regulations: The Federal rules restrict any use of the information to criminally investigate or prosecute any alcohol or drug abuse patient.[facility] WestIn the event this information is protected by the Federal Confidentiality of Alcohol and Drug Abuse Patient Records regulations: The Federal rules restrict any use of the information to criminally investigate or prosecute any alcohol or drug abuse patient.[facility] WestIn the event this information is protected by the Federal Confidentiality of Alcohol and Drug Abuse Patient Records regulations: The Federal rules restrict any use of the information to criminally investigate or prosecute any alcohol or drug abuse patient.[facility] WestIn the event this information is protected by the Federal Confidentiality of Alcohol and Drug Abuse Patient Records regulations: The Federal rules restrict any use of the information to criminally investigate or prosecute any alcohol or drug abuse patient.[facility] WestIn the event this information is protected by the Federal Confidentiality of Alcohol and Drug Abuse Patient Records regulations: The Federal rules restrict any use of the information to criminally investigate or prosecute any alcohol or drug abuse patient.[facility] WestIn the event this information is protected by the Federal Confidentiality of Alcohol and Drug Abuse Patient Records regulations: The Federal rules restrict any use of the information to criminally investigate or prosecute any alcohol or drug abuse patient.[facility] WestIn the event this information is protected by the Federal Confidentiality of Alcohol and Drug Abuse Patient Records regulations: The Federal rules restrict any use of the information to criminally investigate or prosecute any alcohol or drug abuse patient.[facility] WestIn the event this information is protected by the Federal Confidentiality of Alcohol and Drug Abuse Patient Records regulations: The Federal rules restrict any use of the information to criminally investigate or prosecute any alcohol or drug abuse patient.[facility] WestIn the event this information is protected by the Federal Confidentiality of Alcohol and Drug Abuse Patient Records regulations: The Federal rules restrict any use of the information to criminally investigate or prosecute any alcohol or drug abuse patient.[facility] WestIn the event this information is protected by the Federal Confidentiality of Alcohol and Drug Abuse Patient Records regulations: The Federal rules restrict any use of the information to criminally investigate or prosecute any alcohol or drug abuse patient.[facility] WestIn the event this information is protected by the Federal Confidentiality of Alcohol and Drug Abuse Patient Records regulations: The Federal rules restrict any use of the information to criminally investigate or prosecute any alcohol or drug abuse patient.[facility] WestIn the event this information is protected by the Federal Confidentiality of Alcohol and Drug Abuse Patient Records regulations: The Federal rules restrict any use of the information to criminally investigate or prosecute any alcohol or drug abuse patient.[facility] WestIn the event this information is protected by the Federal Confidentiality of Alcohol and Drug Abuse Patient Records regulations: The Federal rules restrict any use of the information to criminally investigate or prosecute any alcohol or drug abuse patient.[facility] WestIn the event this information is protected by the Federal Confidentiality of Alcohol and Drug Abuse Patient Records regulations: The Federal rules restrict any use of the information to criminally investigate or prosecute any alcohol or drug abuse patient.[facility] WestIn the event this information is protected by the Federal Confidentiality of Alcohol and Drug Abuse Patient Records regulations: The Federal rules restrict any use of the information to criminally investigate or prosecute any alcohol or drug abuse patient.[facility] WestIn the event this information is protected by the Federal Confidentiality of Alcohol and Drug Abuse Patient Records regulations: The Federal rules restrict any use of the information to criminally investigate or prosecute any alcohol or drug abuse patient.[facility] WestIn the event this information is protected by the Federal Confidentiality of Alcohol and Drug Abuse Patient Records regulations: The Federal rules restrict any use of the information to criminally investigate or prosecute any alcohol or drug abuse patient.[facility] WestIn the event this information is protected by the Federal Confidentiality of Alcohol and Drug Abuse Patient Records regulations: The Federal rules restrict any use of the information to criminally investigate or prosecute any alcohol or drug abuse patient.[facility] WestIn the event this information is protected by the Federal Confidentiality of Alcohol and Drug Abuse Patient Records regulations: The Federal rules restrict any use of the information to criminally investigate or prosecute any alcohol or drug abuse patient.[facility] WestIn the event this information is protected by the Federal Confidentiality of Alcohol and Drug Abuse Patient Records regulations: The Federal rules restrict any use of the information to criminally investigate or prosecute any alcohol or drug abuse patient.[facility] WestIn the event this information is protected by the Federal Confidentiality of Alcohol and Drug Abuse Patient Records regulations: The Federal rules restrict any use of the information to criminally investigate or prosecute any alcohol or drug abuse patient.[facility] WestIn the event this information is protected by the Federal Confidentiality of Alcohol and Drug Abuse Patient Records regulations: The Federal rules restrict any use of the information to criminally investigate or prosecute any alcohol or drug abuse patient.[facility] WestIn the event this information is protected by the Federal Confidentiality of Alcohol and Drug Abuse Patient Records regulations: The Federal rules restrict any use of the information to criminally investigate or prosecute any alcohol or drug abuse patient.[facility] WestIn the event this information is protected by the Federal Confidentiality of Alcohol and Drug Abuse Patient Records regulations: The Federal rules restrict any use of the information to criminally investigate or prosecute any alcohol or drug abuse patient.[facility] WestIn the event this information is protected by the Federal Confidentiality of Alcohol and Drug Abuse Patient Records regulations: The Federal rules restrict any use of the information to criminally investigate or prosecute any alcohol or drug abuse patient.[facility] WestIn the event this information is protected by the Federal Confidentiality of Alcohol and Drug Abuse Patient Records regulations: The Federal rules restrict any use of the information to criminally investigate or prosecute any alcohol or drug abuse patient.[facility] WestIn the event this information is protected by the Federal Confidentiality of Alcohol and Drug Abuse Patient Records regulations: The Federal rules restrict any use of the information to criminally investigate or prosecute any alcohol or drug abuse patient.[facility] WestIn the event this information is protected by the Federal Confidentiality of Alcohol and Drug Abuse Patient Records regulations: The Federal rules restrict any use of the information to criminally investigate or prosecute any alcohol or drug abuse patient.[facility] WestIn the event this information is protected by the Federal Confidentiality of Alcohol and Drug Abuse Patient Records regulations: The Federal rules restrict any use of the information to criminally investigate or prosecute any alcohol or drug abuse patient.[facility] WestIn the event this information is protected by the Federal Confidentiality of Alcohol and Drug Abuse Patient Records regulations: The Federal rules restrict any use of the information to criminally investigate or prosecute any alcohol or drug abuse patient.[facility] WestIn the event this information is protected by the Federal Confidentiality of Alcohol and Drug Abuse Patient Records regulations: The Federal rules restrict any use of the information to criminally investigate or prosecute any alcohol or drug abuse patient.[facility] WestIn the event this information is protected by the Federal Confidentiality of Alcohol and Drug Abuse Patient Records regulations: The Federal rules restrict any use of the information to criminally investigate or prosecute any alcohol or drug abuse patient.[facility] WestIn the event this information is protected by the Federal Confidentiality of Alcohol and Drug Abuse Patient Records regulations: The Federal rules restrict any use of the information to criminally investigate or prosecute any alcohol or drug abuse patient.[facility] WestIn the event this information is protected by the Federal Confidentiality of Alcohol and Drug Abuse Patient Records regulations: The Federal rules restrict any use of the information to criminally investigate or prosecute any alcohol or drug abuse patient.[facility] WestIn the event this information is protected by the Federal Confidentiality of Alcohol and Drug Abuse Patient Records regulations: The Federal rules restrict any use of the information to criminally investigate or prosecute any alcohol or drug abuse patient.[facility] WestIn the event this information is protected by the Federal Confidentiality of Alcohol and Drug Abuse Patient Records regulations: The Federal rules restrict any use of the information to criminally investigate or prosecute any alcohol or drug abuse patient.[facility] WestIn the event this information is protected by the Federal Confidentiality of Alcohol and Drug Abuse Patient Records regulations: The Federal rules restrict any use of the information to criminally investigate or prosecute any alcohol or drug abuse patient.[facility] WestIn the event this information is protected by the Federal Confidentiality of Alcohol and Drug Abuse Patient Records regulations: The Federal rules restrict any use of the information to criminally investigate or prosecute any alcohol or drug abuse patient.[facility] WestIn the event this information is protected by the Federal Confidentiality of Alcohol and Drug Abuse Patient Records regulations: The Federal rules restrict any use of the information to criminally investigate or prosecute any alcohol or drug abuse patient.[facility] WestIn the event this information is protected by the Federal Confidentiality of Alcohol and Drug Abuse Patient Records regulations: The Federal rules restrict any use of the information to criminally investigate or prosecute any alcohol or drug abuse patient.[facility] WestIn the event this information is protected by the Federal Confidentiality of Alcohol and Drug Abuse Patient Records regulations: The Federal rules restrict any use of the information to criminally investigate or prosecute any alcohol or drug abuse patient.[facility] WestIn the event this information is protected by the Federal Confidentiality of Alcohol and Drug Abuse Patient Records regulations: The Federal rules restrict any use of the information to criminally investigate or prosecute any alcohol or drug abuse patient.[facility] WestIn the event this information is protected by the Federal Confidentiality of Alcohol and Drug Abuse Patient Records regulations: The Federal rules restrict any use of the information to criminally investigate or prosecute any alcohol or drug abuse patient.[facility] WestIn the event this information is protected by the Federal Confidentiality of Alcohol and Drug Abuse Patient Records regulations: The Federal rules restrict any use of the information to criminally investigate or prosecute any alcohol or drug abuse patient.[facility] WestIn the event this information is protected by the Federal Confidentiality of Alcohol and Drug Abuse Patient Records regulations: The Federal rules restrict any use of the information to criminally investigate or prosecute any alcohol or drug abuse patient.[facility] WestIn the event this information is protected by the Federal Confidentiality of Alcohol and Drug Abuse Patient Records regulations: The Federal rules restrict any use of the information to criminally investigate or prosecute any alcohol or drug abuse patient.[facility] WestIn the event this information is protected by the Federal Confidentiality of Alcohol and Drug Abuse Patient Records regulations: The Federal rules restrict any use of the information to criminally investigate or prosecute any alcohol or drug abuse patient.[facility] WestIn the event this information is protected by the Federal Confidentiality of Alcohol and Drug Abuse Patient Records regulations: The Federal rules restrict any use of the information to criminally investigate or prosecute any alcohol or drug abuse patient.[facility] WestIn the event this information is protected by the Federal Confidentiality of Alcohol and Drug Abuse Patient Records regulations: The Federal rules restrict any use of the information to criminally investigate or prosecute any alcohol or drug abuse patient.[facility] WestIn the event this information is protected by the Federal Confidentiality of Alcohol and Drug Abuse Patient Records regulations: The Federal rules restrict any use of the information to criminally investigate or prosecute any alcohol or drug abuse patient.[facility] WestIn the event this information is protected by the Federal Confidentiality of Alcohol and Drug Abuse Patient Records regulations: The Federal rules restrict any use of the information to criminally investigate or prosecute any alcohol or drug abuse patient.[facility] WestIn the event this information is protected by the Federal Confidentiality of Alcohol and Drug Abuse Patient Records regulations: The Federal rules restrict any use of the information to criminally investigate or prosecute any alcohol or drug abuse patient.[facility] WestIn the event this information is protected by the Federal Confidentiality of Alcohol and Drug Abuse Patient Records regulations: The Federal rules restrict any use of the information to criminally investigate or prosecute any alcohol or drug abuse patient.[facility] WestIn the event this information is protected by the Federal Confidentiality of Alcohol and Drug Abuse Patient Records regulations: The Federal rules restrict any use of the information to criminally investigate or prosecute any alcohol or drug abuse patient.[facility] WestIn the event this information is protected by the Federal Confidentiality of Alcohol and Drug Abuse Patient Records regulations: The Federal rules restrict any use of the information to criminally investigate or prosecute any alcohol or drug abuse patient.[facility] WestIn the event this information is protected by the Federal Confidentiality of Alcohol and Drug Abuse Patient Records regulations: The Federal rules restrict any use of the information to criminally investigate or prosecute any alcohol or drug abuse patient.[facility] WestIn the event this information is protected by the Federal Confidentiality of Alcohol and Drug Abuse Patient Records regulations: The Federal rules restrict any use of the information to criminally investigate or prosecute any alcohol or drug abuse patient.[facility] WestIn the event this information is protected by the Federal Confidentiality of Alcohol and Drug Abuse Patient Records regulations: The Federal rules restrict any use of the information to criminally investigate or prosecute any alcohol or drug abuse patient.[facility] WestIn the event this information is protected by the Federal Confidentiality of Alcohol and Drug Abuse Patient Records regulations: The Federal rules restrict any use of the information to criminally investigate or prosecute any alcohol or drug abuse patient.[facility] WestIn the event this information is protected by the Federal Confidentiality of Alcohol and Drug Abuse Patient Records regulations: The Federal rules restrict any use of the information to criminally investigate or prosecute any alcohol or drug abuse patient.[facility] WestIn the event this information is protected by the Federal Confidentiality of Alcohol and Drug Abuse Patient Records regulations: The Federal rules restrict any use of the information to criminally investigate or prosecute any alcohol or drug abuse patient.[facility] WestIn the event this information is protected by the Federal Confidentiality of Alcohol and Drug Abuse Patient Records regulations: The Federal rules restrict any use of the information to criminally investigate or prosecute any alcohol or drug abuse patient.[facility] WestIn the event this information is protected by the Federal Confidentiality of Alcohol and Drug Abuse Patient Records regulations: The Federal rules restrict any use of the information to criminally investigate or prosecute any alcohol or drug abuse patient.[facility] WestIn the event this information is protected by the Federal Confidentiality of Alcohol and Drug Abuse Patient Records regulations: The Federal rules restrict any use of the information to criminally investigate or prosecute any alcohol or drug abuse patient.[facility] WestIn the event this information is protected by the Federal Confidentiality of Alcohol and Drug Abuse Patient Records regulations: The Federal rules restrict any use of the information to criminally investigate or prosecute any alcohol or drug abuse patient.[facility] Care Teams (unrecognized sec tion and content) Net Sql Developer Relationship Specialty Start Date End Date Preet Farrar, DO [address] [facility] [place] [address] PCP - General Family Practice 11/16/13 Net Sql Developer Relationship Specialty Start Date End Date Preet Farrar, DO [address] [facility] [place] [address] PCP - General Family Practice 11/16/13 Net Sql Developer Relationship Specialty Start Date End Date Preet Farrar, DO [address] [place] [address] PCP - General Family Practice 11/16/13 Net Sql Developer Relationship Specialty Start Date End Date Preet Farrar, DO [address] [place] [address] PCP - General Family Practice 11/16/13 Net Sql Developer Relationship Specialty Start Date End Date Preet Farrar, DO [address] [place] [address] PCP - General Family Practice 11/16/13 Net Sql Developer Relationship Specialty Start Date End Date Preet Farrar, DO [address] [place] [address] PCP - General Family Practice 11/16/13 Net Sql Developer Relationship Specialty Start Date End Date Preet Farrar DO [address] [place] [address] PCP - General Family Practice 11/16/13 Net Sql Developer Relationship Specialty Start Date End Date Preet Farrar, DO [address] [place] [address] PCP - General Family Practice 11/16/13 Net Sql Developer Relationship Specialty Start Date End Date Preet Farrar, DO [address] [place] [address] PCP - General Family Practice 11/16/13 Net Sql Developer Relationship Specialty Start Date End Date Preet Farrar, DO [address] [place] [address] PCP - General Family Practice 11/16/13 Net Sql Developer Relationship Specialty Start Date End Date Preet Farrar, DO [address] [place] [address] PCP - General Family Practice 11/16/13 Net Sql Developer Relationship Specialty Start Date End Date Preet Farrar, DO [address] [place] [address] PCP - General Family Practice 11/16/13 Net Sql Developer Relationship Specialty Start Date End Date Preet Farrar, DO [address] [place] [address] PCP - General Family Practice 11/16/13 Net Sql Developer Relationship Specialty Start Date End Date Preet Farrar, DO [address] [place] [address] PCP - General Family Practice 11/16/13 Net Sql Developer Relationship Specialty Start Date End Date Preet Farrar, DO [address] [place] [address] PCP - General Family Practice 11/16/13 Net Sql Developer Relationship Specialty Start Date End Date Preet Farrar, DO [address] [place] [address] PCP - General Family Medicine 11/16/13 Net Sql Developer Relationship Specialty Start Date End Date Preet Farrar, DO [address] [place] [address] PCP - General Family Medicine 11/16/13 Net Sql Developer Relationship Specialty Start Date End Date Preet Farrar, DO [address] [place] [address] PCP - General Family Medicine 11/16/13 Net Sql Developer Relationship Specialty Start Date End Date Preet Farrar, DO [address] [facility] [place] [address] PCP - General Family Medicine 11/16/13 Team [...] Dr. Hermes Block MD Other Provider Active Net Sql Developer Relationship Specialty Start Date End Date Preet Farrar, DO [address] [place] [address] PCP - General Family Medicine 11/16/13 Team Status: Inactive Member Role Status Dates Dr. Preet Farrar DO Primary Care Provider, Attend ing Provider Active Dr. Carmen Dallas MD Referring Provider Active Net Sql Developer Relationship Specialty Start Date End Date Preet Farrar, DO [address] [place] [address] PCP - General Family Medicine 11/16/13 Net Sql Developer Relationship Specialty Start Date End Date Preet Farrar DO [address] [place] [address] PCP - General Family Medicine 11/16/13 Net Sql Developer Relationship Specialty Start Date End Date Preet Farrar, DO [address] [place] [address] PCP - General Family Medicine 11/16/13 Net Sql Developer Relationship Specialty Start Date End Date Preet Farrar DO [address] [place] [address] PCP - General Family Medicine 11/16/13 Net Sql Developer Relationship Specialty Start Date End Date Preet Farrar DO [address] [place] [address] PCP - General Family Medicine 11/16/13 Team [...] Stapleton MD Attending Provider, Referring Provider Active Net Sql Developer Relationship Specialty Start Date End Date Preet Farrar DO [address] [place] [address] PCP - General Family Medicine 11/16/13 Net Sql Developer Relationship Specialty Start Date End Date Preet Farrar DO [address] [place] [address] PCP - General Family Medicine 11/16/13 Net Sql Developer Relationship Specialty Start Date End Date Preet Farrar DO [address] [place] [address] PCP - General Family Medicine 11/16/13 Team Status: Active Member Role Status Dates Dr. Preet Farrar DO Primary Care Provider Active Dr. Julien Reyna MD Attending Provider Active Dr. Kenton Stapleton MD Referring Provider Active Team Status: Inactive Member Role Status Dates Dr. Preet Farrar DO Primary Care Provider Active Dr. Sean Bradley MD Attending Provider, Referring Provider Active Net Sql Developer Relationship Specialty Start Date End Date Preet Farrar DO [address] [place] [address] PCP - General Family Medicine 11/16/13 Net Sql Developer Relationship Specialty Start Date End Date Preet Farrar DO [address] [place] [address] PCP - General Family Medicine 11/16/13 Net Sql Developer Relationship Specialty Start Date End Date Preet Farrar DO [address] [place] [address] PCP - General Family Medicine 11/16/13 Net Sql Developer Relationship Specialty Start Date End Date Preet Farrar DO [address] [place] [address] PCP - General Family Medicine 11/16/13 Team [...] Abisai Fuentes , DO Attending Provider Active Net Sql Developer Relationship Specialty Start Date End Date Preet Farrar DO [address] [facility] [place] [address] PCP - General Family Medicine 11/16/13 Net Sql Developer Relationship Specialty Start Date End Date Preet Farrar DO [address] [facility] [place] [address] PCP - General Family Medicine 11/16/13 Net Sql Developer Relationship Specialty Start Date End Date Preet Farrar DO [address] [facility] [place] [address] PCP - General Family Medicine 11/16/13 Net Sql Developer Relationship Specialty Start Date End Date Preet Farrar DO [address] [facility] [place] [address] PCP - General Family Medicine 11/16/13 Net Sql Developer Relationship Specialty Start Date End Date Preet Farrar DO [address] [facility] [place] [address] PCP - General Family Medicine 11/16/13 Net Sql Developer Relationship Specialty Start Date End Date Preet Farrar DO [address] [facility] [place] [address] PCP - General Family Medicine 11/16/13 Net Sql Developer Relationship Specialty Start Date End Date Preet Farrar, [address] [facility] [place] [address] PCP - General Family Medicine 11/16/13 Net Sql Developer Relationship Specialty Start Date End Date Preet Farrar DO [address] [facility] [place] [address] PCP - General Family Medicine 11/16/13 Net Sql Developer Relationship Specialty Start Date End Date Preet Farrar, [address] [facility] [place] [address] PCP - General Family Medicine 11/16/13 Net Sql Developer Relationship Specialty Start Date End Date Preet Farrar DO [address] [place] [address] PCP - General Family Medicine 11/16/13 Net Sql Developer Relationship Specialty Start Date End Date Preet Farrar, [address] [facility] [place] [address] PCP - General Family Medicine 11/16/13 Net Sql Developer Relationship Specialty Start Date End Date Preet Farrar, [address] [place] [address] PCP - General Family Medicine 11/16/13 Net Sql Developer Relationship Specialty Start Date End Date Preet Farrar DO [address] [facility] [place] [address] PCP - General Family Medicine 11/16/13 Net Sql Developer Relationship Specialty Start Date End Date Preet Farrar, [address] [facility] [place] [address] PCP - General Family Medicine 11/16/13 Net Sql Developer Relationship Specialty Start Date End Date Preet Farrar, [address] [place] [address] PCP - General Family Medicine 11/16/13 Net Sql Developer Relationship Specialty Start Date End Date Preet Farrar, [address] [place] [address] PCP - General Family Medicine 11/16/13 Net Sql Developer Relationship Specialty Start Date End Date Preet Farrar DO [address] [place] [address] PCP - General Family Medicine 11/16/13 Net Sql Developer Relationship Specialty Start Date End Date Preet Farrar DO [address] [place] [address] PCP - General Family Medicine 11/16/13 Net Sql Developer Relationship Specialty Start Date End Date Preet Farrar DO [address] [place] [address] PCP - General Family Medicine 11/16/13 Net Sql Developer Relationship Specialty Start Date End Date Preet Farrar DO [address] [place] [address] PCP - General Family Medicine 11/16/13 Net Sql Developer Relationship Specialty Start Date End Date Preet Farrar DO [address] [place] [address] PCP - General Family Medicine 11/16/13 Net Sql Developer Relationship Specialty Start Date End Date Preet Farrar DO [address] [place] [address] PCP - General Family Medicine 11/16/13 Jacqueline Candelario, RECREATION THERAPY AIDES TEACHER.DRAW FIRE OPERATOR [address] [place] [address] Purchase Order Checker Family Medicine 09/04/24 Kathryn Rivero, RECREATION THERAPY AIDES TEACHER.DRAW FIRE OPERATOR [address] [place] [address] Purchase Order Checker Family Medicine 09/04/24 Net Sql Developer Relationship Specialty Start Date End Date Preet Farrar DO [address] [place] [address] PCP - General Family Medicine 11/16/13 Jacqueline Candelario, RECREATION THERAPY AIDES TEACHER.DRAW FIRE OPERATOR [address] [place] [address] Purchase Order Checker Family [facility] 09/04/24 Kathryn Rivero, RECREATION THERAPY AIDES TEACHER.DRAW FIRE OPERATOR [address] [place] [address] [facility] Net Sql Developer Relationship Specialty Start Date End Date Preet Farrar DO [address] [place] [address] PCP - General Family Medicine 11/16/13 Jacqueline Candelario, RECREATION THERAPY AIDES TEACHER.DRAW FIRE OPERATOR [address] [place] [address] Purchase Order Checker Family [facility] 09/04/24 Kathryn Rivero, RECREATION THERAPY AIDES TEACHER.DRAW FIRE OPERATOR [address] [place] [address] Purchase Order Checker Family [facility] 09/04/24 Net Sql Developer Relationship Specialty Start Date End Date Preet Farrar DO [address] [place] [address] PCP - General Family Medicine 11/16/13 Jacqueline Candelario, RECREATION THERAPY AIDES TEACHER.DRAW FIRE OPERATOR [address] [place] [address] [facility] 09/04/24 [facility] RECREATION THERAPY AIDES TEACHER.DRAW FIRE OPERATOR [address] [place] [address] Formerly [facility] 09/04/24 Net Sql Developer Relationship Specialty Start Date End Date Preet Farrar DO [address] [place] [address] PCP - General Family Medicine 11/16/13 Jacqueline Candelario, RECREATION THERAPY AIDES TEACHER.DRAW FIRE OPERATOR [address] [place] [address] [facility] 09/04/24 MartirKathryn, RECREATION THERAPY AIDES TEACHER.DRAW FIRE OPERATOR [address] [place] [address] Formerly [facility], [facility] 09/04/24 Net Sql Developer Relationship Specialty Start Date End Date Preet Farrar DO [address] [place] [address] PCP - General Family Medicine 11/16/13 Jacqueline Candelario, RECREATION THERAPY AIDES TEACHER.DRAW FIRE OPERATOR [address] [place] [address] [facility] 09/04/24 Kathryn Rivero, RECREATION THERAPY AIDES TEACHER.DRAW FIRE OPERATOR [address] [place] [address] [facility] 09/04/24 Net Sql Developer Relationship Specialty Start Date End Date Preet Farrar DO [address] [place] [address] PCP - General Family Medicine 11/16/13 Jacqueline Candelario, RECREATION THERAPY AIDES TEACHER.DRAW FIRE OPERATOR [address] [place] [address] [facility] 09/04/24 MartirKathryn, RECREATION THERAPY AIDES TEACHER.DRAW FIRE OPERATOR [address] [place] [address] [facility] 09/04/24 Net Sql Developer Relationship Specialty Start Date End Date Preet Farrar DO [address] [place] [address] PCP - General Family Medicine 11/16/13 Jacqueline Candelario, RECREATION THERAPY AIDES TEACHER.DRAW FIRE OPERATOR [address] [place] [address] [facility] 09/04/24 MartirKathryn, RECREATION THERAPY AIDES TEACHER.DRAW FIRE OPERATOR [address] [place] [address] [facility] 09/04/24 Net Sql Developer Relationship Specialty Start Date End Date Preet Farrar DO [address] [place] [address] PCP - General Family Medicine 11/16/13 Jacqueline Candelario, RECREATION THERAPY AIDES TEACHER.DRAW FIRE OPERATOR [address] [place] [address] Purchase Order Checker [facility] 09/04/24 [facility], RECREATION THERAPY AIDES TEACHER.DRAW FIRE OPERATOR [address] [place] [address] Purchase Order Checker [facility] 09/04/24 Net Sql Developer Relationship Specialty Start Date End Date Preet Farrar DO [address] [place] [address] PCP - General Family Medicine 11/16/13 MartirKathryn, RECREATION THERAPY AIDES TEACHER.DRAW FIRE OPERATOR [address] [place] [address] Purchase Order Checker [facility] 09/04/24 Net Sql Developer Relationship Specialty Start Date End Date Preet Farrar DO [address] [place] [address] PCP - General Family Medicine 11/16/13 MartirKathryn, RECREATION THERAPY AIDES TEACHER.DRAW FIRE OPERATOR [address] [place] [address] Purchase Order Checker [facility] 09/04/24 Team Status: Active Member [...] Provider Active Sta rt: December 28, 2024 Net Sql Developer Relationship Specialty Start Date End Date Preet Farrar DO [address] [facility] [place] [address] PCP - General Family Medicine 11/16/13 [facility] HospitalJenniferah, RECREATION THERAPY AIDES TEACHER.DRAW FIRE OPERATOR [address] [facility] [place] [address] Purchase Order Checker Family [facility] 09/04/24 Net Sql Developer Relationship Specialty Start Date End Date Preet Farrar DO [address] [facility] [place] [address] PCP - General Family Medicine 11/16/13 [facility], RECREATION THERAPY AIDES TEACHER.DRAW FIRE OPERATOR [address] [facility] [place] [address] Purchase Order Checker Family [facility] 09/04/24 Net Sql Developer Relationship Specialty Start Date End Date Preet Farrar DO [address] [facility] [place] [address] PCP - General Family Medicine 11/16/13 [facility], RECREATION THERAPY AIDES TEACHER.DRAW FIRE OPERATOR [address] [place] [address] Purchase Order Checker [facility] 09/04/24 Net Sql Developer Relationship Specialty Start Date End Date Preet Farrar DO [address] [place] [address] PCP - General Family Medicine 11/16/13 MartirKathryn, RECREATION THERAPY AIDES TEACHER.DRAW FIRE OPERATOR [address] [place] [address] Purchase Order Check[facility] 09/04/24 Team Status: Active Member [...] February 16, 2025 End: February 16, 2025 Net Sql Developer Relationship Specialty Start Date End Date Preet Farrar DO [address] [facility] [place] [address] PCP - General Family Medicine 11/16/13 Kathryn Rivero, RECREATION THERAPY AIDES TEACHER.DRAW FIRE OPERATOR [address] [facility] [place] [address] [facility] 09/04/24 Liliana Bennett, RECREATION THERAPY AIDES TEACHER.DRAW FIRE OPERATOR [address] [place] [address] [facility] 03/13/25 Net Sql Developer Relationship Specialty Start Date End Date Preet Farrar DO [address] [facility] [place] [address] PCP - General Family Medicine 11/16/13 Kathryn Rivero, RECREATION THERAPY AIDES TEACHER.DRAW FIRE OPERATOR [address] [facility] [place] [address] [facility] 09/04/24 Liliana Bennett, RECREATION THERAPY AIDES TEACHER.DRAW FIRE OPERATOR [address] [facility] [place] [address] Formerly [facility], [facility] 03/13/25 Net Sql Developer Relationship Specialty Start Date End Date Preet Farrar DO [address] [facility] [place] [address] PCP - General Family Medicine 11/16/13 Kathryn Rivero, RECREATION THERAPY AIDES TEACHER.DRAW FIRE OPERATOR [address] [facility] [place] [address] Purchase Order Checker Family [facility] 09/04/24 Liliana Bennett, RECREATION THERAPY AIDES TEACHER.DRAW FIRE OPERATOR [address] [place] [address] Formerly [facility], [facility] 03/13/25 Net Sql Developer Relationship Specialty Start Date End Date Preet Farrar DO [address] [place] [address] PCP - General Family Medicine 11/16/13 MartirKathryn, RECREATION THERAPY AIDES TEACHER.DRAW FIRE OPERATOR [address] [place] [address] Formerly [facility], [facility] 09/04/24 Liliana Bennett, RECREATION THERAPY AIDES TEACHER.DRAW FIRE OPERATOR [address] [place] [address] Formerly [facility], [facility] 03/13/25 Net Sql Developer Relationship Specialty Start Date End Date Preet Farrar DO [address] [place] [address] PCP - General Family Medicine 11/16/13 MartirKathryn, RECREATION THERAPY AIDES TEACHER.DRAW FIRE OPERATOR [address] [place] [address] [facility] 09/04/24 Liliana Bennett, RECREATION THERAPY AIDES TEACHER.DRAW FIRE OPERATOR [address] [place] [address] Formerly [facility] 03/13/25 Net Sql Developer Relationship Specialty Start Date End Date Preet Farrar DO [address] [place] [address] PCP - General Family Medicine 11/16/13 Kathryn Rivero, RECREATION THERAPY AIDES TEACHER.DRAW FIRE OPERATOR [address] [place] [address] Formerly [facility] 09/04/24 Liliana Bennettan, RECREATION THERAPY AIDES TEACHER.DRAW FIRE OPERATOR [address] [place], [place] [address] Formerly [facility], [facility] 03/13/25 Team Status: Active Member Role/Relationship Status [...] Provider Active Start: December 27, 2024 Dr. Douglsa Ron MD Other Provider Active Start: December [...] April 15, 2025 End: April 15, 2025 Net Sql Developer Relationship Specialty Start Date End Date Preet Farrar DO [address] [place], [place] [address] PCP - General Family Medicine 11/16/13 Kathryn Rivero, RECREATION THERAPY AIDES TEACHER.DRAW FIRE OPERATOR [address] [place], [place] [id number] Purchase Order Checker [facility] 09/04/24 Liliana Bennett, RECREATION THERAPY AIDES TEACHER.DRAW FIRE OPERATOR [address] [place], [place] [id number] Purchase Order Checker [facility] 03/13/25 Net Sql Developer Relationship Specialty Start Date End Date Preet Farrar DO [address] [facility] [place] [address] PCP - General Family Medicine 11/16/13 MartirKathryn, RECREATION THERAPY AIDES TEACHER.DRAW FIRE OPERATOR [address] [facility] [place] [address] Purchase Order Checker Family [facility] 09/04/24 Liliana Bennett, RECREATION THERAPY AIDES TEACHER.DRAW FIRE OPERATOR [address] [facility] [place] [address] Purchase Order Checker Family [facility] 03/13/25 Net Sql Developer Relationship Specialty Start Date End Date Preet Farrar DO [address] [facility] [place] [address] PCP - General Family Medicine 11/16/13 MartirKathryn, RECREATION THERAPY AIDES TEACHER.DRAW FIRE OPERATOR [address] [facility] [place] [address] Purchase Order Checker Family [facility] 09/04/24 Liliana Bennett, RECREATION THERAPY AIDES TEACHER.DRAW FIRE OPERATOR [address] [place] [address] [facility] 03/13/25 Net Sql Developer Relationship Specialty Start Date End Date Preet aFrrar DO [address] [facility] [place] [address] PCP - General Family Medicine 11/16/13 Kathryn Rivero, RECREATION THERAPY AIDES TEACHER.DRAW FIRE OPERATOR [address] [facility] [place] [address] Purchase Order Checker Family [facility] 09/04/24 Liliana Bennett, RECREATION THERAPY AIDES TEACHER.DRAW FIRE OPERATOR [address] [place] [address] Purchase Order [facility] 03/13/25 Team Status: Inactive Member [...] May 25, 2025 End: May 25, 2025 Net Sql Developer Relationship Specialty Start Date End Date Preet Farrar DO [address] [place], [place] [address]241 PCP - General Family Medicine 11/16/13 MartirKathryn, RECREATION THERAPY AIDES TEACHER.DRAW FIRE OPERATOR [address] [place], [place] [address] [facility] 09/04/24 Liliana Bennett, RECREATION THERAPY AIDES TEACHER.DRAW FIRE OPERATOR [address] [place], [place] [address] Formerly [facility] 03/13/25 Net Sql Developer Relationship Specialty Start Date End Date Preet Farrar DO [address] [place] [address] PCP - General Family Medicine 11/16/13 MartirKathryn, RECREATION THERAPY AIDES TEACHER.DRAW FIRE OPERATOR [address] [place] [address] Formerly [facility] 09/04/24 Liliana Bennett, RECREATION THERAPY AIDES TEACHER.DRAW FIRE OPERATOR [address] [place], [place] [address] Formerly [facility] 03/13/25 Team Status: Active Member Role/Relationship Status Dates Dr. Peret Farrar DO Primary care physician Active Team [...] BE BASED ON THE PRIMARY CLINICAL RECORDS. [employer] [facility]. provides no warranty or guarantee of the accuracy or completeness of information in this document.
[2025-07-13 20:58] LABS: Partial Thromboplast Time 21.6 Seconds (24.1-36.2); Prothrombin Time (Protime)PT. 13.5 SECONDS (11.7-14.9)
[2025-07-13] MEDS: Heparin Injection (Vial) 5,000 UNIT/ML VIAL 4500 UNIT IV (21:15)
[2025-07-13] MEDS: HEPARIN/D5w 25,000 UNITS 25,000 UNITS/250 ML IV.SOLN. 10 UNITS CONT INF (21:16)
[2025-07-13] MEDS: Insulin Glargine-YFGN 100 UNIT/ML Pen 25 UNIT SC (22:18)
[2025-07-14] VITALS (11 sets, daily range): BP systolic 106–129; BP diastolic 47–91; PULSE 72–87; RESP 16–18; TEMP 36.7–36.9; O2SAT 95–99
[2025-07-14 03:50] LABS: Hematocrit 37.2 % (37-47); Hemoglobin 12.2 g/dL (12.0-15.0); Mean Corp Hgb Conc 32.8 g/dL (32-36); Mean Corpuscular Volume 82.7 fL (81-99); Mean Platelet Vol. 9.1 fl (6.2-12.0); Platelet Count 453 K/mm3 (150-450); RBC Distribution Width CV 13.1 % (11.6-14.6); RBC Distribution Width SD 39.0 fl (35.1-43.9); Red Blood Count 4.50 M/mm3 (4.2-5.4); White Blood Count 20.4 K/mm3 (4.4-11.0)
[2025-07-14 04:07] LABS: Cholesterol 108 mg/dL (<=200); Low Density Lipoprotein Calc. 19 mg/dL; Triglycerides 67 mg/dL; Very Low Density Lipoprotein 13 mg/dL (5-40); cholesterol:hdl ratio screen 1.44
[2025-07-14 04:12] LABS: Partial Thromboplast Time 130.8 Seconds (24.1-36.2)
[2025-07-14 04:13] LABS: Anion Gap 14 (5-15); BUN 14 mg/dL (4-19); BUN/Creat Ratio 22.2 RATIO (10-20); Calcium,Total 9.1 mg/dL (7.6-11.0); Carbon Dioxide 19.7 mmol/L (21.0-32.0); Chloride 99 mmol/L (98-108); Estimated Creatinine Clearance 63.51 ml/min (50-250); Glucose 201 mg/dL (70-99); Potassium 3.9 mmol/L (3.3-5.1)
--- NOTE | 2025-07-14 05:55 | EKG12_ITS ---
Test Reason : AM Blood Pressure : */* mmHG Vent. Rate : 81 BPM Atrial Rate : 81 BPM P-R Int : 208 ms QRS Dur : 84 ms QT Int : 434 ms P-R-T Axes : -28 -13 -12 degrees QTcB Int : 504 ms Normal sinus rhythm Prolonged QT Abnormal ECG When compared with ECG of 13-Jul-2025 18:41, MANUAL COMPARISON REQUIRED DATA IS UNCONFIRMED Confirmed by KALIN TURNER, KIMBERLEY ([id number]), editorial writer PAT CONTRERAS ([id number]) on 07/14/2025 8:28:17 AM Referred By: Confirmed By: KIMBERLEY GAGNON MD
--- NOTE | 2025-07-14 07:50 | NURSING ---
Pt questioning if she can take her home Trulicity. This RN explained that it is not ordered and [facility] SSI protocol to manage blood glucose while here in the hospital. Informed pt that the hospitalist could be asked about continuing home Trulicity. Pt concerned stating that she 'does not take insulin' and she has to have her Trulicity today and her sister is going to be bringing it in. Explained to pt home medication protocol and that hospitalist would have to order med and pharmacy verify it and place barcode in order for it to be recorded into her EMAR. Explained to pt that when med is brought in to call nursing staff to have it secured and sent to pharmacy for verification. After reinforcing above x2 to the pt, pt verbalized understanding.
--- NOTE | 2025-07-14 09:51 | NURSING ---
Report called to [facility] [employer]
--- NOTE | 2025-07-14 10:07 | PCM.PN.HOSP ---
Reason for Visit Chief Complaint: Chest pain and nausea with vomiting Subjective Subjective Patient is a 69-year-old female who presented with chest pain and nausea with vomiting. Patient was found to have elevated troponin consistent with acute non-STEMI treatment initiated per protocol admitted to a monitored bed with consultation placed to cardiology Objective Data Objective Data Vital Signs: Vital Signs Temp Pulse Resp BP Pulse Ox O2 Del Method O2 Flow Rate 98.4 F 86 18 129/65 H 99 Room Air 2 07/14/25 07:50 07/14/25 07:50 07/14/25 07:50 07/14/25 07:50 07/14/25 07:50 07/14/25 08:33 07/14/25 07:50 Oxygen Flow Rate (L/min) 2 Oxygen Delivery Method Room Air Weight: 83.3 kg Body Mass Index (BMI) 35.9 Intake & Output: Intake and Output for Last 24 Hours 07/12/25 07/13/25 07/14/25 23:59 23:59 23:59 Intake Total 2500 / 2600 169.83 / 169.83 Output Total 0 / 0 Balance 2500 / 2600 169.83 / 169.83 Lab / Micro Data 07/14/25 03:40 07/14/25 03:40 Labs: Laboratory Results - last 24 hr 07/13/25 11:10: Troponin T High Sens 39 H, b-Hydroxybutyric mmol/L 2.9 H 07/13/25 11:50: WBC 15.0 H, RBC 4.86, Hgb 13.5, Hct 39.4, MCV 81.1, MCH 27.8, MCHC 34.3, RDW Std Deviation 37.7, RDW Coeff of Neida 12.8, Plt Count 508 H, MPV 9.3, Immature Gran % (Auto) 0.500, Neut % (Auto) 89.5 H, Lymph % (Auto) 7.2 L, [place] % (Auto) 2.3, Eos % (Auto) 0.2, Baso % (Auto) 0.3, Absolute Neuts (auto) 13.4 H, Absolute Lymphs (auto) 1.08, Nucleated RBC % 0, D-Dimer Quant (PE/DVT) 0.35, Sodium 129 L, Potassium 4.7, Chloride 90 L, Carbon Dioxide 20.6 L, Anion Gap 19 H, BUN 16, Creatinine 0.64 L, Estim Creat Clear Calc 61.71, Est GFR (MDRD) Non-Af 96, BUN/Creatinine Ratio 24.5 H, Glucose 344 H, Calcium 10.3 07/13/25 11:59: Hemoglobin A1c 8.3 H 07/13/25 12:02: Urine Color Yellow, Urine Clarity Clear, Urine pH 7.0, Ur Specific [place] 1.010, Urine Protein 30 H, Urine Glucose (UA) 1000 H, Urine Ketones 150 A*, Urine Occult Blood Negative, Urine Nitrite Negative, Urine Bilirubin Negative, Urine Urobilinogen Normal, Ur Leukocyte Esterase Negative, Urine RBC 0 SEEN, Urine WBC 0 SEEN, Ur Squamous Epith Cells 0-5 SEEN, Urine Bacteria 0 SEEN, Urine Mucus 0 SEEN 07/13/25 13:15: Troponin T Hi Sens 2 Hr 75 H* 07/13/25 15:15: Troponin T Hi Sens 4Hr 148 H*, TSH 0.030 L 07/13/25 16:37: POC Glucose 245 H 07/13/25 18:05: POC Glucose 273 H 07/13/25 20:11: POC Glucose 236 H 07/13/25 20:23: PT 13.5, INR 1.0, APTT 21.6 L 07/13/25 22:08: POC Glucose 251 H 07/14/25 03:40: WBC 20.4 H, RBC 4.50, Hgb 12.2, Hct 37.2, MCV 82.7, MCH 27.1, MCHC 32.8, RDW Std Deviation 39.0, RDW Coeff of Neida 13.1, Plt Count 453 H, MPV 9.1, APTT 130.8 H*, Sodium 133, Potassium 3.9, Chloride 99, Carbon Dioxide 19.7 L, Anion Gap 14, BUN 14, Creatinine 0.62 L, Estim Creat Clear Calc 63.51, Est GFR (MDRD) Non-Af 96, BUN/Creatinine Ratio 22.2 H, Glucose 201 H, Calcium 9.1, Triglycerides 67, Cholesterol 108, LDL Cholesterol, Calc 19, VLDL Cholesterol 13, HDL Cholesterol 75, Cholesterol/HDL Ratio 1.44 ABG Data ABG results: ABG 07/13/25 12:07 Specimen Type TARA Sample Site Not entered VBG pH 7.54 H VBG pO2 26 VBG HCO3 22 VBG Total CO2 23 VBG O2 Sat (Calc) 58 VBG Base Excess -1 POC Mix VBG pCO2 Pt Tmp 25.7 L O2 Delivery Device Not entered Radiography Diagnostic Testing: Radiology Impression Chest X-Ray 07/13/25 12:05 IMPRESSION: NO ACUTE FINDINGS. Borderline cardiomegaly. Reading Location: [place] [address] Physical Exam Narrative GENERAL: cooperative HEENT: Atraumatic; normocephalic EYES; Anicteric, Normal Conjunctiva NECK; supple, normal thyroid, RESPIRATORY: Diminished to auscultation CARDIOVASCULAR: Regular S1 S2, GI: soft, normoactive bowel sounds, : No Renal angle tenderness; EXTREMITIES: No edema, no clubbing, MUSCULOSKELETAL: no muscle wasting NEURO: Awake; no lateralizing signs. SKIN: No Rash PSYCH; Flat affect Assessment & Plan Assessment/Plan (1) NSTEMI, initial episode of care: PLAN: Plan Patient is a 69-year-old female who presented with chest pain and nausea with vomiting. Patient was found to have elevated troponin consistent with acute non-STEMI treatment initiated per protocol admitted to a monitored bed with consultation placed to cardiology 1. Acute non-STEMI ? Patient presented with chest pain as well as elevated troponin admitted to a monitored bed started on heparin consultation placed to cardiology plans for patient to undergo left heart catheterization with intervention if warranted 2. Diabetes mellitus type 2 ? Patient presented with hyperglycemia. Patient has a CGM monitor and manages her diabetes with Lantus 25 units at night as well as weekly Trulicity. Added Accu-Cheks AC and at bedtime with sliding scale coverage to patient current treatment regimen 3. Hyponatremia ? Secondary to combination of suspected hypovolemic hyponatremia as well as patient's hyperglycemia monitoring with daily BMPs 4. Previous CVA ? Patient is on antiplatelet therapy 5. Peripheral arterial disease ? With known history of moderate left renal artery stenosis as well as chronically occluded left carotid artery with good collaterals. Will continue patient antiplatelet therapy 6. Hypothyroidism ? Patient is on [place] Thyroid supplements 7. Hypertension ? Blood pressure controlled, home medications continued with dose adjustment as needed 8. GERD ? Patient is on PPI 9. Class II obesity with BMI of 36 ? Complicating care weight loss advised 10. DVT prophylaxis ? Patient on heparin Time spent in the patient's overall evaluation,decision-making process, review of diagnostic data, adjustment of management, discussion with other providers, nursing nursing and ancillary staff involved in patient's care documentation, 38 Minutes Charges/Coding Visit Charges Inpatient E&M: 65348 Subs Hosp L2
--- NOTE | 2025-07-14 11:08 | NURSING ---
Pt returned from [employer] [employer] with heparin gtt stopped.
[2025-07-14] MEDS: DULAGLUTIDE 3 MG/0.5 ML PEN.INJCTR SQ (12:03)
--- NOTE | 2025-07-14 12:09 | DS.PCM_ITS ---
Providers Date of Admission: 07/13/25 Date of Discharge: 07/14/25 Primary Care Physician: Dr. Preet Farrar, DO Consultations 07/13/25 17:56 Consult: Cardiology Routine Consulting Provider: Jamel Gray Reason for Consult: NSTEMI EMERGENT Consult: No MD Notified: Yes Date Notified: 07/13/25 Time Notified: 17:23 Method of Notification: Text Reason For Visit: NSTEMI Diagnosis Discharge Diagnosis (1) NSTEMI, initial episode of care: Status: Acute Code(s): I21.4 - Non-ST elevation (NSTEMI) myocardial infarction Plan Patient is a 69-year-old female who presented with chest pain and nausea with vomiting. Patient was found to have elevated troponin consistent with acute non-STEMI treatment initiated per protocol admitted to a monitored bed with consultation placed to cardiology 1. Acute non-STEMI ? Patient presented with chest pain as well as elevated troponin admitted to a monitored bed started on heparin consultation placed to cardiology plans for patient to undergo left heart catheterization with intervention if warranted ? Patient underwent left heart catheterization no hemodynamically obstructive lesions found decision was therefore made to discharge patient home 2. Diabetes mellitus type 2 ? Patient presented with hyperglycemia. Patient has a CGM monitor and manages her diabetes with Lantus 25 units at night as well as weekly Trulicity. Added Accu-Cheks AC and at bedtime with sliding scale coverage to patient current treatment regimen 3. Hyponatremia ? Secondary to combination of suspected hypovolemic hyponatremia as well as patient's hyperglycemia monitoring with daily BMPs 4. Previous CVA ? Patient is on antiplatelet therapy 5. Peripheral arterial disease ? With known history of moderate left renal artery stenosis as well as chronically occluded left carotid artery with good collaterals. Will continue patient antiplatelet therapy 6. Hypothyroidism ? Patient is on [place] Thyroid supplements 7. Hypertension ? Blood pressure controlled, home medications continued with dose adjustment as needed 8. GERD ? Patient is on PPI 9. Class II obesity with BMI of 36 ? Complicating care weight loss advised 10. DVT prophylaxis ? Patient on heparin 11. Chronic marijuana use ? Patient was counseled on cessation and possible side effects including cannabinoid induced hyperemesis Time spent in the patient's overall evaluation,decision-making process, review of diagnostic data, adjustment of management, discussion with other providers, nursing nursing and ancillary staff involved in patient's care documentation, 38 Minutes Medications at Discharge Home Medications ergocalciferol (vitamin D2) 1,250 mcg (50,000 unit) capsule 50,000 unit PO MOFR SUPPLEMENT 12/18/20 thyroid (pork) 120 mg tablet 120 tablet PO DAILY THYROID 12/18/20 clopidogrel 75 mg tablet 75 mg PO DAILY BLOOD THINNER #30 tabs 11/04/22 carvedilol 6.25 mg tablet 6.25 mg PO BID blood pressure 03/05/24 pantoprazole 40 mg tablet,delayed release 40 mg PO DAILY gerd #30 tabs 05/22/24 thyroid (pork) 30 mg tablet ([place] Thyroid) 30 mg PO MOWEFR thyroid 07/21/24 insulin glargine 100 unit/mL (3 mL) subcutaneous pen (Lantus Solostar U-100 Insulin) 25 unit subcut DAILY blood sugar 12/12/24 spironolactone 25 mg tablet 25 mg PO BID heart 12/12/24 elderberry fruit 200 mg capsule 2,000 mg PO DAILY supplement 12/13/24 atorvastatin 40 mg tablet 40 mg PO QHS cholesterol 07/13/25 dulaglutide 3 mg/0.5 mL subcutaneous pen injector (Trulicity) 3 mg subcut QWEEK blood sugar 07/13/25 Weight / BMI Weight Weight: 83.3 kg Body Mass Index (BMI) 35.9 ABG / Lab / Microbiology Data 07/14/25 03:40 07/14/25 03:40 Laboratory: Laboratory Results - last 24 hr 07/13/25 11:10: Troponin T High Sens 39 H, b-Hydroxybutyric mmol/L 2.9 H 07/13/25 11:50: D-Dimer Quant (PE/DVT) 0.35, Sodium 129 L, Potassium 4.7, C hloride 90 L, Carbon Dioxide 20.6 L, Anion Gap 19 H, BUN 16, Creatinine 0.64 L, Estim Creat Clear Calc 61.71, Est GFR (MDRD) Non-Af 96, BUN/Creatinine Ratio 24.5 H, Glucose 344 H, Calcium 10.3 07/13/25 11:59: Hemoglobin A1c 8.3 H 07/13/25 12:02: Urine Color Yellow, Urine Clarity Clear, Urine pH 7.0, Ur Specific [place] 1.010, Urine Protein 30 H, Urine Glucose (UA) 1000 H, Urine Ketones 150 A*, Urine Occult Blood Negative, Urine Nitrite Negative, Urine Bilirubin Negative, Urine Urobilinogen Normal, Ur Leukocyte Esterase Negative, Urine RBC 0 SEEN, Urine WBC 0 SEEN, Ur Squamous Epith Cells 0-5 SEEN, Urine Bacteria 0 SEEN, Urine Mucus 0 SEEN 07/13/25 13:15: Troponin T Hi Sens 2 Hr 75 H* 07/13/25 15:15: Troponin T Hi Sens 4Hr 148 H*, TSH 0.030 L 07/13/25 16:37: POC Glucose 245 H 07/13/25 18:05: POC Glucose 273 H 07/13/25 20:11: POC Glucose 236 H 07/13/25 20:23: PT 13.5, INR 1.0, APTT 21.6 L 07/13/25 22:08: POC Glucose 251 H 07/14/25 03:40: WBC 20.4 H, RBC 4.50, Hgb 12.2, Hct 37.2, MCV 82.7, MCH 27.1, MCHC 32.8, RDW Std Deviation 39.0, RDW Coeff of [place] 13.1, Plt Count 453 H, MPV 9.1, APTT 130.8 H*, Sodium 133, Potassium 3.9, Chloride 99, Carbon Dioxide 19.7 L, Anion Gap 14, BUN 14, Creatinine 0.62 L, Estim Creat Clear Calc 63.51, Est GFR (MDRD) Non-Af 96, BUN/Creatinine Ratio 22.2 H, Glucose 201 H, Calcium 9.1, Triglycerides 67, Cholesterol 108, LDL Cholesterol, Calc 19, VLDL Cholesterol 13, HDL Cholesterol 75, Cholesterol/HDL Ratio 1.44 ABG: ABG 07/13/25 12:07 Specimen Type TARA Sample Site Not entered VBG pH 7.54 H VBG pO2 26 VBG HCO3 22 VBG Total CO2 23 VBG O2 Sat (Calc) 58 VBG Base Excess -1 POC Mix VBG pCO2 Pt Tmp 25.7 L O2 Delivery Device Not entered Radiography Diagnostic Testing: Radiology Impression Chest X-Ray 07/13/25 12:05 IMPRESSION: NO ACUTE FINDINGS. Borderline cardiomegaly. Reading Location: [place] [id number] D/C Instructions Discharge Activity: Return to Normal Activity Call your doctor if you observe: Fever of 101 or Higher, Shortness of breath, Fainting spells and Chest pain DC O2, CPAP, BIPAP Needs Home O2 Discharge instructions: No Meaningful Use Info Meaningful Use Meaningful Use Diagnoses (Choose all that apply): AMI AMI/Post PCI/Angioplasty Aspirin given w/in 24hrs of arrival?: Yes ASA at discharge?: No Reason ASA not ordered:: Allergy Antiplatelet Therapy at Discharge:: Yes Statins at discharge?: Yes Bairon/ARB at discharge?: No Reason Bairon/ARB not ordered:: Not indicated Beta Kari at discharge?: Yes Done w/ Acute [place] measure.: Yes Documented LVEF (%): 65 Discharge Plan Admission Admit Date/Time: 07/13/25 16:39 Attending Provider: Arnold García Primary Care Provider: Preet Farrar Consulting Providers: Jamel Gray; Reji Cline Discharge Orders/Prescriptions Prescriptions: Continued thyroid (pork) 120 MG tablet 120 tablet PO DAILY ergocalciferol (vitamin D2) 50,000 UNIT capsule 50,000 unit PO MOFR clopidogrel 75 mg Tablet 75 mg PO DAILY Qty: 30 2RF carvedilol 6.25 mg tablet 6.25 mg PO BID spironolactone 25 mg tablet 25 mg PO BID pantoprazole 40 mg tablet,delayed release (DR/EC) 40 mg PO DAILY Qty: 30 0RF insulin glargine [Lantus Solostar U-100 Insulin] 100 unit/mL (3 mL) insulin pen 25 unit subcut DAILY thyroid (pork) [[place] Thyroid] 30 mg tablet 30 mg PO MOWEFR elderberry fruit 200 mg capsule 2,000 mg PO DAILY Trulicity 3 mg/0.5 mL pen injector 3 mg subcut QWEEK atorvastatin 40 mg tablet 40 mg PO QHS Referrals / Follow Up: Preet Farrar DO [Primary Care Provider, Medical] Charges/Coding Visit Charges Inpatient E&M: 49294 Disch Hosp >30min
[2025-07-14 12:27] LABS: Partial Thromboplast Time 49.0 Seconds (24.1-36.2)
--- NOTE | 2025-07-14 15:31 | PHA.DC_ITS ---
Pharmacy [place] Med Reconciliation Pharmacy Service has performed discharge medication reconciliation for this patient. The patient's discharge medication list was reviewed for discrepancies and discrepancies were resolved. Medications at Discharge Home Medications ergocalciferol (vitamin D2) 1,250 mcg (50,000 unit) capsule 50,000 unit PO MOFR SUPPLEMENT 12/18/20 thyroid (pork) 120 mg tablet 120 tablet PO DAILY THYROID 12/18/20 clopidogrel 75 mg tablet 75 mg PO DAILY BLOOD THINNER #30 tabs 11/04/22 carvedilol 6.25 mg tablet 6.25 mg PO BID blood pressure 03/05/24 pantoprazole 40 mg tablet,delayed release 40 mg PO DAILY gerd #30 tabs 05/22/24 thyroid (pork) 30 mg tablet ([place] Thyroid) 30 mg PO MOWEFR thyroid 07/21/24 insulin glargine 100 unit/mL (3 mL) subcutaneous pen (Lantus Solostar U-100 Insulin) 25 unit subcut DAILY blood sugar 12/12/24 spironolactone 25 mg tablet 25 mg PO BID heart 12/12/24 elderberry fruit 200 mg capsule 2,000 mg PO DAILY supplement 12/13/24 atorvastatin 40 mg tablet 40 mg PO QHS cholesterol 07/13/25 dulaglutide 3 mg/0.5 mL subcutaneous pen injector (Trulicity) 3 mg subcut QWEEK blood sugar 07/13/25
--- NOTE | 2025-07-14 17:44 | CL.D_ITS ---
Patient Name: LEIDY AMADO Study Date: 07/14/2025 Performing: Jamel Gray MD Ht: 60 inches 152.4 cm : 1955 Wt: 183.9 lbs 83.3 kg Age: 69 Gender: female BSA: 1.8 PROCEDURE(S) PERFORMED DC01-([id number])LHC/COR/LV CLINICAL PROFILE AND INDICATIONS Indications: Suspected CAD Heart Failure: None Stress/Imaging Stress/Image Study Performed: No CAD Presentations: Non-STEMI. Symptom onset Date/Time: 07/13/25 Time Not Available CONCLUSIONS Mild coronary artery disease diagonal vessel with ostial high-grade with the rest of the vessels with mild diffuse luminal irregularities. RECOMMENDATIONS Medical therapy DESCRIPTION OF PROCEDURE The patient arrived to the procedure lab. The risks and benefits of the procedure as well as a full description of our services here and current unavailability of surgical backup were fully explained to the patient and/or their significant other prior to the catheterization. The Timeout was completed, verifying the correct patient and procedure. The patient's procedural site was prepped and draped in the usual fashion. Local anesthetic was given subcutaneously to right radial region with Lidocaine 2%. Using a modified Seldinger technique, arterial access was obtained via the right radial artery, a 6Fr sheath was inserted. Left Coronary Artery selective angiography was performed in multiple views using a 5 Fr. 4.0 Mobile catheter. Right Coronary Artery selective angiography was then performed in multiple views using a 5 Fr. 4.0 Mobile catheter. Left Ventriculography was performed in JUSTICE projection using a 5 Fr. Pigtail catheter. LV to AO pullback pressures were then recorded.The arterial sheath was pulled and a TR Band was applied for hemostasis 10 ml of air CORONARY ANGIOGRAPHY DOMINANCE: Right Dominant LEFT HEART ASSESSMENT Left Ventricular Ejection Fraction: by LV Gram 55 % Normal LV wall motion Normal Left Ventricular systolic function LEFT MAIN: Angiographically normal, Mild calcification LEFT ANTERIOR DESCENDING ARTERY: Medium sized vessel with first diagonal with an ostial 80 to 90% stenosis. No high-grade stenosis noted in the LAD. CIRCUMFLEX ARTERY: Mild luminal irregularities RIGHT CORONARY ARTERY: Mild luminal irregularities less than 30% COMPLICATIONS No Complications PROCEDURE MEDICATIONS Fentanyl 50 mcg IV Versed 1 mg IV Oxygen: 2 L/min via nasal cannula Heparin given IA 07/14/2025 10:18:26 Verapamil 2.5mg, Ntg 100mcgs, 3000 units of Heparin given IA 07/14/2025 10:18:26 SUMMARY OF HEMODYNAMIC DATA Time AIR REST ECG 10:07:59 AO 79/49 (63) SA 10:28:15 LV 111/-2, 4 10:33:36 LV 106/-1, 3 10:33:44 LV 97/9, 11 10:34:11 LV 0/10, 0 10:34:18 LVp 112/-1, 4 10:34:34 LVp 111/-3, 5 10:34:52 AOp 94/47 (65) 10:34:57 Signed By Jamel Gray MD On 07/14/2025 17:43:24 Jamel Gray MD
== END 2025-07-14 16:35 | disposition home or self-care (01) | DRG 281 ==
LOC: ED 16:52 → PCU 18:12
PROVIDERS: Admitting Provider Hospitalist; Emergency Provider Emergency Medicine; PCP Student in an Organized Health Care Education/Training Program; Visit Provider Internal Medicine
DX: I21.4 Non-ST elevation (NSTEMI) myocardial infarction (principal); E87.1 Hypo-osmolality and hyponatremia; E11.65 Type 2 diabetes mellitus with hyperglycemia; E03.9 Hypothyroidism, unspecified; I10 Essential (primary) hypertension; I35.2 Nonrheumatic aortic (valve) stenosis with insufficiency; E66.812 Obesity, class 2; E11.42 Type 2 diabetes mellitus with diabetic polyneuropathy; I25.118 Atherosclerotic heart disease of native coronary artery with other forms of angina pectoris; K21.9 Gastro-esophageal reflux disease without esophagitis; E78.00 Pure hypercholesterolemia, unspecified; Z79.4 Long term (current) use of insulin; E11.51 Type 2 diabetes mellitus with diabetic peripheral angiopathy without gangrene; E86.0 Dehydration; Z68.36 Body mass index [BMI] 36.0-36.9, adult; Z79.85 Long-term (current) use of injectable non-insulin antidiabetic drugs; Z79.02 Long term (current) use of antithrombotics/antiplatelets; Z79.890 Hormone replacement therapy; Z79.899 Other long term (current) drug therapy; Z87.891 Personal history of nicotine dependence; Z86.73 Personal history of transient ischemic attack (TIA), and cerebral infarction without residual deficits
CPT/HCPCS: 36415; 71046; 80048; 80061; 81001; 82010; 82803; 82962; 83036; 84443; 84484; 85025; 85027; 85379; 85610; 85730; 93005; 93458; 99152; 99153; 99285; Q9967; A4216; C1769; C1894; J2405

== ENCOUNTER 2025-07-17 15:29 | Emergency (ER) | payer MEDICARE, MEDICAID, SELFPAY ==
[2025-07-17 15:33] VITALS: BP 117/92; PULSE 81; RESP 18; TEMP 37.2; O2SAT 98
[2025-07-17 15:35] VITALS: BP 117/92; PULSE 81; RESP 18; TEMP 37.2; O2SAT 98
[2025-07-17] MEDS: 0.9% Normal Saline (1000mL) 1,000 ML 1000 ML IV (16:32)
[2025-07-17 16:55] LABS: Mucous, Urine 0 SEEN /hpf (<or=2+)
[2025-07-17 17:00] LABS: Hematocrit 37.7 % (37-47); Hemoglobin 13.0 g/dL (12.0-15.0); Immature Granulocytes Count 0.100 X10^3/uL (0.0-0.0); Mean Corp Hgb Conc 34.5 g/dL (32-36); Mean Corpuscular Volume 80.6 fL (81-99); Mean Platelet Vol. 9.1 fl (6.2-12.0); NRBC Flagged by Analyzer 0 % (0-5); Platelet Count 446 K/mm3 (150-450); RBC Distribution Width CV 13.2 % (11.6-14.6); RBC Distribution Width SD 37.9 fl (35.1-43.9); Red Blood Count 4.68 M/mm3 (4.2-5.4); White Blood Count 16.6 K/mm3 (4.4-11.0)
[2025-07-17 17:10] LABS: AST(SGOT) 37 U/L (<=31); Alanine Aminotransfer ALT/SGPT 17 U/L (<=34); Albumin, Serum 3.8 g/dL (3.4-4.8); Alkaline Phosphatase 111 U/L (35-104); Anion Gap 15 (5-15); BUN 27 mg/dL (4-19); BUN/Creat Ratio 34.4 RATIO (10-20); Calcium,Total 9.4 mg/dL (7.6-11.0); Carbon Dioxide 19.9 mmol/L (21.0-32.0); Chloride 92 mmol/L (98-108); Globulin 3.3 g/dL (2.2-4.2); Glucose 215 mg/dL (70-99); Potassium 3.8 mmol/L (3.3-5.1)
[2025-07-17 17:31] VITALS: BP 140/80; PULSE 76; O2SAT 96
[2025-07-17 17:33] LABS: Color, Urine Straw (Yellow); Glucose, Dipstick 1000 mg/dl (Normal); Ketone-Dipstick 15 mg/dl (Negative); Leukocyte Esterase-Dipstick Negative /ul (Negative); Nitrite-Dipstick Negative (Negative); Occult Blood-Urine 10 /ul (Negative); Protein-Dipstick 15 mg/dl (Negative); Specific Gravity, Urine 1.010 (1.002-1.030); Urine Bilirubin Dipstick Negative (Negative)
[2025-07-17 18:43] LABS: Red Blood Cells-Urine 0-5 SEEN /hpf (0-5); Squamous Epithelial Cells - UA 5-10 SEEN /hpf (5-10)
[2025-07-17] MEDS: Insulin Glargine-YFGN 100 UNIT/ML Pen 25 UNIT SC (19:07)
[2025-07-17 19:15] VITALS: BP 112/62; PULSE 74; RESP 17; O2SAT 97
[2025-07-17 21:00] VITALS: RESP 18
[2025-07-17 22:57] VITALS: BP 106/94; PULSE 77; RESP 18; TEMP 37; O2SAT 95
== END 2025-07-17 22:57 | disposition home or self-care (01) ==
PROVIDERS: Emergency Provider Emergency Medicine; PCP Student in an Organized Health Care Education/Training Program; Visit Provider Emergency Medicine
DX: E86.0 Dehydration (principal); E11.42 Type 2 diabetes mellitus with diabetic polyneuropathy; Z79.4 Long term (current) use of insulin; E87.1 Hypo-osmolality and hyponatremia; R11.2 Nausea with vomiting, unspecified; I25.2 Old myocardial infarction; I10 Essential (primary) hypertension; E78.00 Pure hypercholesterolemia, unspecified; Z79.02 Long term (current) use of antithrombotics/antiplatelets; Z79.85 Long-term (current) use of injectable non-insulin antidiabetic drugs; Z79.899 Other long term (current) drug therapy; Z87.891 Personal history of nicotine dependence; Z86.73 Personal history of transient ischemic attack (TIA), and cerebral infarction without residual deficits
CPT/HCPCS: 80053; 81001; 82962; 85025; 96361; 96374; 96375; 99282; A4216

== ENCOUNTER → 2025-09-12 | Outpatient (CLI) | payer MEDICARE, MEDICAID, SELFPAY ==
--- NOTE | 2025-09-12 10:57 | ECHOD_ITS ---
Reason For Study Reason For Study: CAD/ASHD Procedure This was a 2D Doppler, Color Flow transthoracic echocardiogram. The patient is in an irregular rhythm. Exam performed in department. Left Ventricle Normal LV size. Mild concentric left ventricular hypertrophy. The left ventricular ejection fraction is 65 %. Stage 1 diastolic dysfunction. Right Ventricle Normal right ventricle. Atria The left atrium is moderately enlarged. Normal right atrium. Mitral Valve There is Mild focal posterior mitral annular calcification. Tricuspid Valve Normal tricuspid valve. Aortic Valve Moderate calcific aortic valve stenosis. Mean peak gradient 28 mmHg. Mild aortic valve regurgitation. Pulmonic Valve The pulmonic valve is not well visualized. Great Vessels Normal sized aortic root. Pericardium/Pleural Trivial pericardial effusion. MMode/2D Measurements & Calculations LVIDd: 4.7 cm IVSd: 1.1 cm LVOT diam: 2.0 cm LVIDs: 3.0 cm LVPWd: 1.2 cm LVOT area: 3.1 cm2 RVDd: 3.2 cm FS: 37.4 % Ao root diam: 3.6 cm LAV(MOD-bp): 54.9 ml LVAd ap4: 24.6 cm2 LAV(MOD-bp) Indexed: 30.4 ml/m2 LVLd ap4: 7.1 cm LAV(MOD-sp2): 49.1 ml EDV(MOD-sp4): 70.6 ml LAV(MOD-sp4): 53.3 ml EDV(sp4-el): 72.2 ml LVAs ap4: 13.3 cm2 LVLs ap4: 6.4 cm ESV(MOD-sp4): 24.8 ml ESV(sp4-el): 23.6 ml EF(MOD-sp4): 64.9 % EF(sp4-el): 67.3 % SV(MOD-sp4): 45.8 ml SV(sp4-el): 48.6 ml LA A4 area: 19.8 cm2 SI(MOD-sp4): 25.4 ml/m2 LA dimension(2D): 4.6 cm RA A4 area: 15.0 cm2 TAPSE: 2.5 cm Time Measurements MV dec time: 0.23 sec Doppler Measurements & Calculations MV E max narendra: 105.1 cm/sec Lat Peak E' Narendra: 6.2 cm/sec Med Peak E' Narendra: 7.3 cm/sec MV A max narendra: 110.3 cm/sec E/E' lat: 17.0 E/E' med: 14.4 MV E/A: 0.95 MV V2 max: 123.8 cm/sec MV P1/2t max narendra: 111.1 cm/sec Ao V2 max: 357.6 cm/sec MV max P.1 mmHg MV P1/2t: 73.9 msec Ao max P.1 mmHg MV V2 mean: 75.0 cm/sec Ao V2 mean: 254.7 cm/sec MV mean P.6 mmHg MV dec slope: 440.7 cm/sec2 Ao mean P.7 mmHg MV V2 VTI: 37.9 cm MVA(P1/2t): 3.0 cm2 Ao V2 VTI: 97.6 cm AV (velocity ratio): 0.30 MVA(VTI): 2.3 cm2 GREG(I,D): 0.91 cm2 GREG(V,D): 1.1 cm2 AI max narendra: 407.2 cm/sec LV V1 max: 128.1 cm/sec SV(LVOT): 88.5 ml AI max P.3 mmHg LV V1 max P.6 mmHg LV V1 mean P.4 mmHg AI dec slope: 246.8 cm/sec2 LV V1 mean: 86.5 cm/sec AI P1/2t: 483.2 msec LV V1 VTI: 29.0 cm PA V2 max: 114.0 cm/sec PA V2 mean: 83.2 cm/sec ECHO/Echo Complete Interpretation Summary Mild concentric left ventricular hypertrophy. The left ventricular ejection fraction is 65 %. Stage 1 diastolic dysfunction. The left atrium is moderately enlarged. Moderate calcific aortic valve stenosis. Mean peak gradient 28 mmHg. Mild aorti c valve regurgitation. Ordering Physician: Julien Reyna Referring Physician: Julien Reyna Performed By: Nick Chambers RCS
== END | disposition home or self-care (01) ==
PROVIDERS: PCP Student in an Organized Health Care Education/Training Program; Referring Provider Internal Medicine Cardiovascular Disease; Visit Provider Internal Medicine Cardiovascular Disease
DX: I25.10 Atherosclerotic heart disease of native coronary artery without angina pectoris (principal); E11.65 Type 2 diabetes mellitus with hyperglycemia; Z79.4 Long term (current) use of insulin; I35.2 Nonrheumatic aortic (valve) stenosis with insufficiency; I77.9 Disorder of arteries and arterioles, unspecified
CPT/HCPCS: 93306